=== PATIENT | female | born 1955 | race Caucasian/White ===

== ENCOUNTER 2016-11-05 20:14 | Outpatient (CLI) | payer MEDICARE, OTHER ==
[~2016-11-05 20:14] MED LIST: CALC625T14 PO; EZET10TA5 PO; HYDR-3816 PO; LACT20SO2 PO; LEVO100T7 PO; LISI30TA5 PO; MELO15TA14 PO; METF850T2 PO; OXYC-197 PO; SERT100T8 PO
--- OUTSIDE RECORDS SUMMARY | 2016-11-05 20:19 | XMS REPORT | Continuity of Care Document ---
Author Author [facility] Organization [facility] Address Unknown Phone Unavailable Care Team Providers Care Flight Steward Name Role Phone Lucrecia Sánchez PCP [phone] Source Comments Some departments are not documenting in the electronic medical record. If you do not see the information that you expected, contact Release of Information in the Health Information Management department at [phone] for further assistance in locating additional records.[facility] Active Allergies and Adverse Reactions Allergen Noted Date Severity Reactions Comments Adhesive 11/11/2014 Medium RASH Dilaudid 05/21/2015 High HALLUCINATIONS E-Mycin 11/11/2014 Medium RASH, NAUSEA AND VOMITING Flu Vaccine 11/11/2014 Low SEE COMMENTS Hospitalized with flu at age 17. Lipitor 11/11/2014 Low STOMACH UPSET Morphine 05/21/2015 High HALLUCINATIONS Pcn 11/11/2014 Medium RASH Tolerates Keflex Sulfa (Sulfonamide 11/11/2014 Medium HEADACHE, HIVES, RASH Antibiotics) Tetanus And Diphtheria 11/11/2014 Medium HEADACHE, EDEMA Toxoids, Adsorbed, Adult Zocor 11/11/2014 Low STOMACH UPSET Current Medications Prescription Sig. Disp. Refills Start End Date Status Date metFORMIN (GLUCOPHAGE) Take 850 mg by mouth Active 850 mg tablet twice daily with meals. levothyroxine (SYNTHROID) Take 100 mcg by mouth Active 100 mcg tablet daily. lisinopril (PRINIVIL, Take 40 mg by mouth Active ZESTRIL) 40 mg tablet daily. sertraline (ZOLOFT) 100 Take 200 mg by mouth Active mg tablet daily. cyanocobalamin (VITAMIN Inject 1,000 mcg to Active B-12, RUBRAMIN) 1,000 area(s) as directed every mcg/mL injection 30 days. ferrous sulfate 325 mg Take 325 mg by mouth Active (65 mg iron) tablet daily. FIBER (DEXTRIN) PO Take by mouth daily. Active electrolyte GUT PEG Mix as directed on 4000 mL 0 09/22/20 Active (NULYTELY, COLYTE, package. Drink 240ml 16 GAVILYTE-N) 420 gram oral (8oz) every 10 minutes solution until gone. Refrigerate once mixed. Active Problems Problem Noted Date Open wound anterior abdominal wall 06/18/2015 Status post partial colectomy 05/09/2015 Small bowel obstruction (HCC) 04/19/2015 Pyuria 03/08/2015 Iron deficiency anemia 03/07/2015 Vitamin B12 deficiency 03/07/2015 Essential hypertension 03/07/2015 Depression 03/07/2015 Colonic mass 03/07/2015 Chronic diarrhea 03/07/2015 Type 2 diabetes mellitus without complication (HCC) 03/07/2015 Melena 03/06/2015 DM (diabetes mellitus) (HCC) 11/11/2014 Hypothyroid 11/11/2014 S/P dusty 11/11/2014 Most Recent Encounters Date Type Specialty Providers Description 11/05/2016 Result Letter Gastroenterology Humberto Christian, Crohn' s disease of both [facility] [place] and large intestine with intestinal obstruction (HCC) (Primary Dx) 11/03/2016 [facility] Humberto Chirstian, Colonic ulcer Encounter [facility] 11/03/2016 Endo Rslt Enc Gastroenterology Tunde Diaz MD 11/03/2016 Anesthesia Bhavesh Bustos MD Event 11/03/2016 Surgery Humberto Christian, COLONOSCOPY BIOPSY [facility] 10/27/2016 Hospital Endoscopy, Physician Bloating Encounter 10/27/2016 Surgery Endoscopy, Physician Canceled HYDROGEN BREATH TEST 09/29/2016 Telephone Gastroenterology Humberto Christian, Constipation; Rectal [facility] Injury - Blood in stool 09/27/2016 Telephone Gastroenterology Humberto Christian, Other - HBT [facility] 09/22/2016 Prep for Case Gastroenterology Humberto Christian, DONNY 09/22/2016 Telephone Gastroenterology Humberto Christian, Results - Capsule Endo [facility] 09/16/2016 Hospital Humberto Christian, Abdominal pain Encounter [facility] 09/16/2016 Surgery Humberto Christina, CAPSULE ENDOSCOPY [facility] 09/06/2016 Prep for Case Gastroenterology Humberto Christian, DONNY 09/06/2016 Prep for Case Gastroenterology Humberto Christian, DONNY 08/30/2016 Office Visit Gastroenterology Humberto Christian, Right upper quadrant [facility] abdominal pain (Primary Dx) 08/27/2016 Telephone Gastroenterology Humberto Christian, Abdominal pain - MBEYAD tenderness under R breat, thin stools and gas Social History Tobacco Use Types Packs/Day Years Used Date Never Smoker Smokeless Tobacco: Never Used Alcohol Use Drinks/Week oz/Week Comments No Last Filed Vital Signs Vital Sign Reading Time Taken Blood Pressure 117/51 11/03/2016 1:15 PM VAULT INSTALLER Pulse 60 11/03/2016 1:20 PM VAULT INSTALLER Temperature 36.8 C (98.2 F) 11/03/2016 11:38 AM VAULT INSTALLER Respiratory Rate 16 01/19/2016 9:50 AM CDT Height 1.575 m (5' 2") 09/16/2016 7:24 AM VAULT INSTALLER Weight 141.069 kg (311 lb) 09/16/2016 7:24 AM VAULT INSTALLER Body Mass Index 56.87 09/16/2016 7:24 AM VAULT INSTALLER Oxygen Saturation 94% 11/03/2016 1:20 PM VAULT INSTALLER Plan of Care Date Type Specialty Providers Description 12/20/2016 Appointment Gastroenterology Humberto Christian MBBS [address] [facility] [address] [place] [address] [phone] (Fax) Health Maintenance Due Date Last Done Comments Hepatitis C Screening 1955 Physical (Comprehensive) 1960 Exam Pertussis Vaccine 1964 Tetanus Vaccine 1970 Cervical Cancer Screening 1974 Breast Cancer Screening 1993 Shingles Vaccine 2013 Influenza Vaccine 06/10/2016 Colorectal Cancer 11/03/2026 11/03/2016, 11/03/2016, 11/03/2016 Additional history exists Screening Procedures from Last 3 Months Procedure Name Priority Date/Time Associated Diagnosis Comments TELEMETRY STRIPS-SCAN 11/04/2016 Results for this 12:06 PM VAULT INSTALLER procedure are in the results section. COLONOSCOPY BIOPSY 11/03/2016 Colonic ulcer 12:00 PM VAULT INSTALLER Special Needs 2nd Call - Colonoscop y - Cld pt & scheduled appt 09/24/16 @ 1:51 pm ()Pt lvms, returned my call 09/23/16 @ 3:25 pm ()1st Call - Colonoscop y - Lvms 09/23/16 @ 2:48 pm () COLONOSCOPY 11/03/2016 Colonic ulcer 12:00 PM VAULT INSTALLER Special Needs 2nd Call - Colonoscop y - Cld pt & scheduled appt 09/24/16 @ 1:51 pm ()Pt lvms, returned my call 09/23/16 @ 3:25 pm ()1st Call - Colonoscop y - Lvms 09/23/16 @ 2:48 pm () PROCEDURE RECORD-SCAN 10/07/2016 Results for this 12:52 PM VAULT INSTALLER procedure are in the results section. CAPSULE ENDOSCOPY 09/16/2016 Abdominal pain 7:00 AM VAULT INSTALLER Special Needs 1st Call - Capsule Endoscopy / Hydrogen Breath Test - Cld pt & sched appts (On different days) 09/07/16 @ 1049 () Results from Last 3 Months TELEMETRY STRIPS-SCAN (11/04/2016 12:06 PM) Narrative Ordered by an unspecified provider. SURGICAL PATHOLOGY (11/03/2016 1:43 PM) Component Value Range PATHOLOGY REPORT [facility] [email or web address] Mary Huff MD, PhD, Director of Anatomic Pathology Department of Pathology and Laboratory Medicine [address] [place] [id number] Surgical Pathology Office: [phone] SURGICAL PATHOLOGY REPORT NAME: MECHE CUMMINS ANN SURG PATH #: [id number] MR #: [id number] SPECIMEN CLASS: SR BILLING #: [id number] ALT ID #: LOCATION: [facility] DATE OF PROCEDURE: 11/03/2016 AGE: 60 SEX: F DATE RECEIVED: 11/03/2016 : 1955 TIME RECEIVED: 13:43 PHYSICIAN: HUMBERTO CHRISTIAN MD DATE OF REPORT: 11/04/2016 COPY TO: DATE OF PRINTIN11/04/2016 ################################################## ###################### Final Diagnosis: A. Small intestinal mucosa, "terminal ileum", biopsy: Focal ulceration with fibrinopurulent exudate and acute and chronic inflammation. Attestation: By this signature, I attest that I have personally formulated the final interpretation expressed in this report and that the above diagnosis is based upon my examination of the slides and/or other material indicated in this report. +++Electronically Signed Out By+++ muriel/11/03/2016 Interpreted by: New Mayen MD, Attending Physician Pamela Loera M.D. Resident 11/04/2016 ################################################## ###################### Material Received: A: terminal ileum History: 60-year-old female with history of colonic ulcer. Gross Description: A. Received in formalin labeled "TI BX" is a 0.7 x 0.7 x 0.3 cm aggregate of villa-brown soft tissue fragments. The specimen is entirely submitted in cassette A1. (tn) villa/11/03/2016 Pamela Loera M.D. Resident COLONOSCOPY (11/03/2016 11:51 AM) Component Value Range Provation Report Patient Name: Placido Echevarria Procedure Date: 11/03/2016 11:51 AM CSN: [id number] Date of : 1955 Gender: Female Attending Physician: Humberto Christian MD Procedure: Colonoscopy Indications: Ch ronic diarrhea. 60 y.o. female with history of diarrhea and inflammatory TI mass removed via surgery presenting for colonoscopy. Providers: Humberto Christian MD (Doctor), Bj Cobb RN (Nurse), Milo Mercado, Network Development Coordinator (Network Development Coordinator) Referring Physician: Tunde Diaz MD Medications: Mo nitored Anesthesia Care Complications: No immediate complications. Procedure: Pre-Anesthesia Assessment: - Prior to the procedure, a History and Physical was performed, and patient medications and allergies were reviewed. The patient's tolerance of previous anesthesia was also reviewed. The risks and benefits of the procedure and the sedation options and risks were discussed with the patient. All questions were answered, and informed consent was obtained. Prior Anticoagulants: The patient has taken no previous anticoagulant or antiplatelet agents. ASA Grade Assessment: III - A patient with severe systemic disease. After reviewing the risks and benefits, the patient was deemed in satisfactory condition to undergo the procedure. After I obtained informed consent, the scope was passed under direct vision. Throughout the procedure, the patient's blood pressure, pulse, and oxygen saturations were monitored continuously. The Colonoscope [id number] was introduced through the anus and advanced to 10 cm into the ileum. The colonoscopy was performed without difficulty. The patient tolerated the procedure well. The terminal ileum was photographed. The quality of the bowel preparation was poor. Findings: The perianal and digital rectal examinations were normal. The terminal ileum contained 2 five mm ulcers. No bleeding was present. Biopsies were taken with a cold forceps for histology. Estimated blood loss was minimal. The colonic mucosa could not be inspected due to the poor quality of the preparation Impression: - Preparation of the colon was poor. - 2 ulcers in the terminal ileum. Biopsied. - The colonic mucosa could not be inspected due to the poor quality of the preparation Estimated Blood Loss: Estimated blood loss was minimal. Recommendation: - Patient has a contact number available for emergencies. The signs and symptoms of potential delayed complications were discussed with the patient. Return to normal activities tomorrow. Written discharge instructions were provided to the patient. - Resume previous diet. - Continue present medications. - Repeat colonoscopy for surveillance based on pathology results. Scope In: 12:16:50 PM Scope Out: 12:41:32 PM Scope Withdrawal Time 0 hours 14 minutes 58 seconds Total Procedure Duration Time 0 hours 24 minutes 42 seconds Procedure Code(s): --- Professional --- 51356, Colonoscopy, flexible; with biopsy, single or multiple Diagnosis Code(s): --- Professional --- K63.3, Ulcer of intestine K52.9, Noninfective gastroenteritis and colitis, unspecified CPT copyright 2015 [employer]. All rights reserved. The codes documented in this report are preliminary and upon drafter topographical review may be revised to meet current compliance requirements. Attending Participation: I was present and participated during the entire procedure, including non-kebede portions. MD Humberto Headley MD 11/03/2016 12:48:56 PM The attending physician has electronically signed and finalized this document. Number of Addenda: 0 Note Initiated On: 11/03/2016 11:51 AM POC GLUCOSE (11/03/2016 11:25 AM) Component Value Range Glucose, POC 113 (H) 70-100 MG/DL PROCEDURE RECORD-SCAN (10/07/2016 12:52 PM) Narrative Ordered by an unspecified provider.
== END 2016-11-06 07:16 | disposition home or self-care (01) ==
LOC: SLEEP 20:14
PROVIDERS: ATTEND Nurse Practitioner
DX: G47.30 Sleep apnea, unspecified (principal)
CPT/HCPCS: 95810

== ENCOUNTER → 2016-12-01 | Outpatient (CLI) | payer MEDICARE, OTHER ==
--- OUTSIDE RECORDS SUMMARY | 2016-12-01 16:58 | XMS REPORT | Continuity of Care Document ---
Author Author [facility] Address Unknown Phone Unavailable Care Team Providers Care Senior Loss Control Specialist Name Role Phone Lucrecia Sánchez PCP [phone] Source Comments Some departments are not documenting in the electronic medical record. If you do not see the information that you expected, contact Release of Information in the Health Information Management department at [phone] for further assistance in locating additional records.[facility] Active Allergies and Adverse Reactions Allergen [...] Humberto Christian, Crohn' s disease of both [facility] small and large intestine with intestinal obstruction (HCC) (Primary Dx) 11/03/2016 [facility] Humberto Christian, Colonic ulcer Encounter [facility] 11/03/2016 Endo Rslt Enc Gastroenterology Tunde Diaz MD 11/03/2016 Anesthesia Bhavesh Bustos MD Event 11/03/2016 Surgery Humberto Christian, COLONOSCOPY BIOPSY [facility] 10/27/2016 Hospital Endoscopy, Physician Bloating Encounter 10/27/2016 Surgery Endoscopy, Physician Canceled HYDROGEN BREATH TEST 09/29/2016 Telephone Gastroenterology Humberto Christian, Constipation; Rectal [facility] Injury - Blood in stool 09/27/2016 Telephone Gastroenterology Humberto Christian, Other - HBT [facility] 09/22/2016 Prep for Case Gastroenterology Humberto Christian, DONNY 09/22/2016 Telephone Gastroenterology Humberto Christian, Results - Capsule Endo [facility] 09/16/2016 Hospital Humberto Christian, Abdominal pain Encounter [facility] 09/16/2016 Surgery Humberto Christian, CAPSULE ENDOSCOPY [facility] 09/06/2016 Prep for Case Gastroenterology Humberto Christian, DONNY 09/06/2016 Prep for Case Gastroenterology Humberto Christian MBBS Social History Tobacco Use Types Packs/Day Years Used Date Never Smoker Smokeless Tobacco: Never Used Alcohol Use Drinks/Week oz/Week Comments No Last Filed Vital Signs Vital Sign Reading Time Taken Blood Pressure 117/51 11/03/2016 1:15 PM TENTER FRAME OPERATOR Pulse 60 11/03/2016 1:20 PM TENTER FRAME OPERATOR Temperature 36.8 C (98.2 F) 11/03/2016 11:38 AM TENTER FRAME OPERATOR Respiratory Rate 16 01/19/2016 9:50 AM CDT Height 1.575 m (5' 2") 09/16/2016 7:24 AM TENTER FRAME OPERATOR Weight 141.069 kg (311 lb) 09/16/2016 7:24 AM TENTER FRAME OPERATOR Body Mass Index 56.87 09/16/2016 7:24 AM TENTER FRAME OPERATOR Oxygen Saturation 94% 11/03/2016 1:20 PM TENTER FRAME OPERATOR Plan of Care Date Type Specialty Providers Description 12/13/2016 Appointment Gastroenterology Humberto Christian MBBS [address] [facility] [address] [place] [address] [phone] (Fax) Health Maintenance Due Date Last Done [...] STRIPS-SCAN 11/04/2016 Results for this 12:06 PM TENTER FRAME OPERATOR procedure are in the results section. COLONOSCOPY BIOPSY 11/03/2016 Colonic ulcer 12:00 PM TENTER FRAME OPERATOR Special Needs 2nd Call - Colonoscop y - Cld pt & scheduled appt 09/24/16 @ 1:51 pm ()Pt lvms, returned my call 09/23/16 @ 3:25 pm ()1st Call - Colonoscop y - Lvms 09/23/16 @ 2:48 pm () COLONOSCOPY 11/03/2016 Colonic ulcer 12:00 PM TENTER FRAME OPERATOR Special Needs 2nd Call - Colonoscop y - Cld pt & scheduled appt 09/24/16 @ 1:51 pm ()Pt lvms, returned my call 09/23/16 @ 3:25 pm ()1st Call - Colonoscop y - Lvms 09/23/16 @ 2:48 pm () PROCEDURE RECORD-SCAN 10/07/2016 Results for this 12:52 PM TENTER FRAME OPERATOR procedure are in the results section. CAPSULE ENDOSCOPY 09/16/2016 Abdominal pain 7:00 AM TENTER FRAME OPERATOR Special Needs 1st Call - Capsule Endoscopy / Hydrogen Breath Test - Cld pt & sched appts (On different days) 09/07/16 @ 1049 () Results from Last 3 Months TELEMETRY STRIPS-SCAN (11/04/2016 12:06 PM) Narrative Ordered by an unspecified provider. SURGICAL PATHOLOGY (11/03/2016 1:43 PM) Component Value Range PATHOLOGY REPORT [facility] [email or web address] Mary Huff MD, PhD, Director of Anatomic Pathology Department of Pathology and Laboratory Medicine [address] [place] [phone] Surgical Pathology Office: [phone] SURGICAL PATHOLOGY REPORT NAME: MECHE CUMMINS ANN SURG PATH #: [id number] MR #: [id number] SPECIMEN CLASS: SR BILLING #: [id number] ALT ID #: LOCATION: [facility]END DATE OF PROCEDURE: 11/03/2016 AGE: 60 SEX: [...] Echevarria Procedure Date: 11/03/2016 11:51 AM CSN: [id number] Date of : 1955 Gender: Female Attending Physician: Humberto Christian MD Procedure: Colonoscopy Indications: Ch ronic diarrhea. 60 y.o. female with history of diarrhea and inflammatory TI mass removed via surgery presenting for colonoscopy. Providers: Humberto Christian MD (Doctor), Bj Cobb RN (Nurse), Milo Mercado Supervisor Dry Cell Assembly (Supervisor Dry Cell Assembly) Referring Physician: Tunde Diaz MD Medications: Mo [...] 42 seconds Procedure Code(s): --- Professional --- 04221, Colonoscopy, flexible; with biopsy, single or multiple Diagnosis Code(s): --- Professional --- K63.3, Ulcer of intestine K52.9, Noninfective gastroenteritis and colitis, unspecified CPT copyright 2015 [employer]. All rights reserved. The codes documented in this report are preliminary and upon pump press operator review may be revised to meet current [...]
[2016-12-01 17:24] LABS: MEAN PLATELET VOLUME 9.2 FL (7.4-10.4); RED BLOOD COUNT 4.23 10^6/uL (4.35-5.85); RED CELL DISTRIBUTION WIDTH 12.8 % (10.0-14.5); WHITE BLOOD COUNT 6.7 10^3/uL (4.3-11.0)
[2016-12-01 17:49] LABS: ALANINE AMINOTRANSFERASE 42 U/L (0-55); ALBUMIN 3.9 G/DL (3.2-4.5); ANION GAP 9 MMOL/L (5-14); ASPARTATE AMINO TRANSFERASE 57 U/L (5-34); BILIRUBIN,TOTAL 0.6 MG/DL (0.1-1.0); BLOOD UREA NITROGEN 15 MG/DL (7-18); BUN/CREATININE RATIO 20; CALCIUM 9.5 MG/DL (8.5-10.1); CARBON DIOXIDE 21 MMOL/L (21-32); CHLORIDE 109 MMOL/L (98-107); CREATININE SERUM 0.75 MG/DL (0.60-1.30); GFR ESTIMATED > 60; GLUCOSE 181 MG/DL (70-105); SODIUM 139 MMOL/L (135-145); TOTAL PROTEIN 6.6 G/DL (6.4-8.2)
[2016-12-02 11:45] LABS: %SAT TOTAL IRON BINDING CAPIC 24 % (15-50); TIBC 325 ug/dL (280-380)
[2016-12-03 08:23] LABS: HEPATITIS B CORE TOTAL INDEX <0.07 Index (<=0.50); HEPATITIS B SURFACE AB INDEX <3.10 mIU/mL (>=10.00); HEPATITIS B SURFACE AB INTERP Non-Immune (Immune)
[2016-12-03 08:24] LABS: HEPATITIS B CORE TOTAL INTERP Non-Reactive; UIBC 248 ug/dL (55-450)
== END ==
LOC: LAB 16:53
PROVIDERS: ATTEND Internal Medicine Gastroenterology
DX: E11.9 Type 2 diabetes mellitus without complications (principal); K50.812 Crohn's disease of both small and large intestine with intestinal obstruction; E53.8 Deficiency of other specified B group vitamins; E78.5 Hyperlipidemia, unspecified; I10 Essential (primary) hypertension
CPT/HCPCS: 36415; 80053; 82607; 82728; 83540; 85027; 86704; 86706; 87340

== ENCOUNTER 2016-12-12 14:06 | Emergency (ER) | payer MEDICARE ==
[~2016-12-12] VITALS: Ht 157.5 cm; Wt 142.0 kg
--- OUTSIDE RECORDS SUMMARY | 2016-12-12 14:12 | XMS REPORT | Continuity of Care Document ---
Author Author [facility] Organization [facility] Address Unknown Phone Unavailable Care Team Providers Care Repulping Supervisor Name Role Phone Lucrecia Sánchez PCP [phone] Source Comments Some departments are not documenting in the electronic medical record. If you do not see the information that you expected, contact Release of Information in the Health Information Management department at [phone] for further assistance in locating additional records.[facility] Active Allergies and Adverse Reactions Allergen Noted [...] Recent Encounters Date Type Specialty Providers Description 12/08/2016 Orders Only Gastroenterology Humberto Christian MBBS 12/07/2016 Orders Only Gastroenterology Humberto Christian MBBS 12/07/2016 Orders Only Gastroenterology Humberto Christian MBBS 11/05/2016 Result Letter Gastroenterology Humberto Christian, Crohn' s disease of both [facility] small and large intestine with intestinal obstruction (HCC) (Primary Dx) 11/03/2016 Hospital Humberto Christian, Colonic ulcer Encounter [facility] 11/03/2016 Endo Rslt Enc Gastroenterology Tunde Diaz MD 11/03/2016 Anesthesia Bhavesh Bustos MD Event 11/03/2016 Surgery Humberto Christian, COLONOSCOPY BIOPSY EYAD 10/27/2016 Surgery Endoscopy, Physician Canceled HYDROGEN BREATH TEST 09/29/2016 Telephone Gastroenterology Humberto Christian, Constipation; Rectal DONNY Injury - Blood in stool 09/27/2016 Telephone Gastroenterology Humberto Christian, Other - HBT DONNY 09/22/2016 Prep for Case Gastroenterology Humberto Christian MBBS 09/22/2016 Telephone Gastroenterology Humberto Christian, Results - Capsule Endo DONNY 09/16/2016 Surgery Humberto Christian, CAPSULE ENDOSCOPY DONNY Social History Tobacco Use Types Packs/Day Years Used Date Never Smoker Smokeless Tobacco: Never Used Alcohol Use Drinks/Week oz/Week Comments No Last Filed Vital Signs Vital Sign Reading Time Taken Blood Pressure 117/51 11/03/2016 1:15 PM CUSTOMER EQUIPMENT ENGINEER Pulse 60 11/03/2016 1:20 PM CUSTOMER EQUIPMENT ENGINEER Temperature 36.8 C (98.2 F) 11/03/2016 11:38 AM CUSTOMER EQUIPMENT ENGINEER Respiratory Rate 16 01/19/2016 9:50 AM CDT Height 1.575 m (5' 2") 09/16/2016 7:24 AM CUSTOMER EQUIPMENT ENGINEER Weight 141.069 kg (311 lb) 09/16/2016 7:24 AM CUSTOMER EQUIPMENT ENGINEER Body Mass Index 56.87 09/16/2016 7:24 AM CUSTOMER EQUIPMENT ENGINEER Oxygen Saturation 94% 11/03/2016 1:20 PM CUSTOMER EQUIPMENT ENGINEER Plan of Care Date Type Specialty Providers Description 12/13/2016 Appointment Gastroenterology Humberto Christian MBBS [address] [facility] [address] [place] [address] [phone] (Fax) Health Maintenance Due Date Last Done Comments Hepatitis C Screening 1955 Physical (Comprehensive) 1960 Exam Pertussis Vaccine 1964 Tetanus Vaccine 1970 Cervical Cancer Screening 1974 Breast Cancer Screening 1993 Shingles Vaccine 2013 Influenza Vaccine 06/10/2017 Colorectal Cancer 11/03/2026 11/03/2016, 11/03/2016, 11/03/2016 Additional history exists Screening Procedures from Last 3 Months Procedure Name Priority Date/Time Associated Diagnosis Comments TELEMETRY STRIPS-SCAN 11/04/2016 Results for this 12:06 PM CUSTOMER EQUIPMENT ENGINEER procedure are in the results section. COLONOSCOPY BIOPSY 11/03/2016 Colonic ulcer 12:00 PM CUSTOMER EQUIPMENT ENGINEER Special Needs 2nd Call - Colonoscop y - Cld pt & scheduled appt 09/24/16 @ 1:51 pm ()Pt lvms, returned my call 09/23/16 @ 3:25 pm ()1st Call - Colonoscop y - Lvms 09/23/16 @ 2:48 pm () COLONOSCOPY 11/03/2016 Colonic ulcer 12:00 PM CUSTOMER EQUIPMENT ENGINEER Special Needs 2nd Call - Colonoscop y - Cld pt & scheduled appt 09/24/16 @ 1:51 pm ()Pt lvms, returned my call 09/23/16 @ 3:25 pm ()1st Call - Colonoscop y - Lvms 09/23/16 @ 2:48 pm () PROCEDURE RECORD-SCAN 10/07/2016 Results for this 12:52 PM CUSTOMER EQUIPMENT ENGINEER procedure are in the results section. CAPSULE ENDOSCOPY 09/16/2016 Abdominal pain 7:00 AM CUSTOMER EQUIPMENT ENGINEER Special Needs 1st Call - Capsule Endoscopy / Hydrogen Breath Test - Cld pt & sched appts (On different days) 09/07/16 @ 1049 () Results from Last 3 Months MISCELLANEOUS LAB TEST (12/04/2016)Only the most recent of 2 results within the time period is included. Specimen Blood HEPATITIS B SURFACE AG (12/01/2016) Component Value Range HBsAg Non-Reactive Specimen Blood HEPATITIS B CORE AB TOT (IGG+IGM) (12/01/2016) Specimen Blood VITAMIN B12 (12/01/2016) Component Value Range Vitamin B12 499 Specimen Blood IRON + BINDING CAPACITY + %SAT (12/01/2016) Component Value Range Iron 77 % Saturation 24 Specimen Blood FERRITIN (12/01/2016) Component Value Range Ferritin 86.0 Specimen Blood CBC (12/01/2016) Component Value Range White Blood Cells 6.7 RBC 4.23 Hemoglobin 13.0 Hematocrit 39 MCV 92 MCH 31 MCHC 33 Platelet Count 182 MPV 9.2 RDW 12.8 Specimen Blood COMPREHENSIVE METABOLIC PANEL (12/01/2016) Component Value Range Sodium 139 Potassium 4.0 Chloride 109 CO2 21 Blood Urea Nitrogen 15 Creatinine 0.75 Glucose 181 Calcium 9.5 Total Protein 6.6 Total Bilirubin 0.6 Albumin 3.9 Alk Phosphatase 71 AST (SGOT) 57 ALT (SGPT) 42 Anion Gap 9 Specimen Blood TELEMETRY STRIPS-SCAN (11/04/2016 12:06 PM) Narrative Ordered by an unspecified provider. SURGICAL PATHOLOGY (11/03/2016 1:43 PM) Component Value Range PATHOLOGY REPORT [facility] [email or web address] Mary Huff MD, PhD, Director of Anatomic Pathology Department of Pathology and Laboratory Medicine [address] [place] [id number] Surgical Pathology Office: [phone] SURGICAL PATHOLOGY REPORT NAME: MARIIA CUMMINSH ANN SURG PATH #: [id number] MR #: [id number] SPECIMEN CLASS: SR BILLING #: [id number] ALT ID #: LOCATION: [facility] DATE OF PROCEDURE: 11/03/2016 AGE: 60 SEX: [...] in this report. +++Electronically Signed Out By+++ leb/11/03/2016 Interpreted by: New Mayen MD, Attending Physician Pamela Loera M.D. Resident 11/04/2016 ################################################## ###################### Material Received: A: terminal ileum History: 60-year-old female with history of colonic ulcer. Gross Description: A. Received in formalin labeled "TI BX" is a 0.7 x 0.7 x 0.3 cm aggregate of villa-brown soft tissue fragments. The specimen is entirely submitted in cassette A1. (tn) 11/03/2016 Pamela Loera M.D. Resident COLONOSCOPY (11/03/2016 11:51 AM) Component Value Range Provation Report Patient Name: Placido Echevarria Procedure Date: 11/03/2016 11:51 AM CSN: [id number] Date of : 1955 Gender: Female Attending Physician: Humberto Christian MD Procedure: Colonoscopy Indications: Ch ronic diarrhea. 60 y.o. female with history of diarrhea and inflammatory TI mass removed via surgery presenting for colonoscopy. Providers: Humberto Christian MD (Doctor), Bj Cobb RN (Nurse), Milo [facility] R[facility] (Health Services Rn) Referring Physician: Tunde Diaz MD Medications: Mo [...] 42 seconds Procedure Code(s): --- Professional --- 14388, Colonoscopy, flexible; with biopsy, single or multiple Diagnosis Code(s): --- Professional --- K63.3, Ulcer of intestine K52.9, Noninfective gastroenteritis and colitis, unspecified CPT copyright 2015 [employer]. All rights reserved. The codes documented in this report are preliminary and upon hardware supplies sales representative review may be revised to meet current [...]
--- NOTE | 2016-12-12 15:30 | ED Lower Extremity ---
General Chief Complaint: Trauma-Non Activation Stated Complaint: FALL/R KNEE/ELBOW/HAND INJ Nursing Triage Note: FELL TODAY AROUND [address] [facility] [place]. COMPLAINS OF PAIN RIGHT KNEE, ET RIGHT HAND. DENIES LOC BUT HIT HER HEAD ON THE RED BOX OUTSIDE [facility]. Nursing Sepsis Screen: No Definite Risk Source: patient, family History of Present Illness Time seen by provider: 15:25 Initial Comments This 61-year-old white female presents after she fell at [facility] in [place] striking her left knee and left elbow and left hand. The patient denied any significant head trauma or loss of consciousness. The patient denies subsequent neck pain of significance. She denied trauma to the chest abdomen or pelvis. The patient denied injury to the left upper or lower extremity. Patient's past medical history includes a previous right knee replacement. The patient is complaining of sharp pain greatest in the right knee, then her right elbow, and finally her right hand. Location Injury Occurred: [facility] [place] Allergies and Home Medications Allergies Coded Allergies: Influenza Virus Vaccines (Verified Allergy, Unknown, NAUSEA, 12/02/15) Penicillins (Verified Allergy, Unknown, HIVES, 12/02/15) Sulfa (Sulfonamide Antibiotics) (Verified Allergy, Unknown, HIVES, 12/02/15 ) adhesive tape (Verified Allergy, Unknown, HIVES, 12/02/15) atorvastatin (Verified Allergy, Unknown, NAUSEA, 12/02/15) hydromorphone (Verified Allergy, Unknown, hallucinations, 12/02/15) morphine (Verified Allergy, Unknown, hallcination, 12/02/15) simvastatin (Verified Allergy, Unknown, NAUSEA, 12/02/15) tetanus & diphtheria toxoids (Verified Allergy, Unknown, HIVES, 12/02/15) Uncoded Allergies: myocins (Allergy, Unknown, NAUSEA, 12/02/15) Home Medications Calcium Polycarbophil 625 Mg Tablet 625 MG PO DAILY (Reported) Ezetimibe 10 Mg Tablet 10 MG PO DAILY (Reported) Hydrocodone/Acetaminophen 1 Each Tablet #20 1 EACH PO Q4H Prescribed by: REBECCA LAWSON on 12/10/15 1050 Lactulose 20 Gm/30 Ml Solution #1 20 GM PO Q4H 30 mL by mouth every 4 hours until diarrhea Prescribed by: JENNIFER DAMON on 09/29/16 1543 Levothyroxine Sodium 100 Mcg Tablet 100 MCG PO DAILY (Reported) Lisinopril 30 Mg Tablet 30 MG PO DAILY (Reported) Meloxicam 15 Mg Tablet 15 MG PO DAILY (Reported) Metformin HCl 850 Mg Tablet 850 MG PO BID (Reported) Oxycodone HCl/Acetaminophen 1 Each Tablet #30 1 EACH PO Q4H PRN PRN PAIN Prescribed by: MAYTE DICKERSON on 01/25/16 1145 Sertraline HCl 100 Mg Tablet 100 MG PO DAILY (Reported) Constitutional: No chills, No fever EENTM: No ear pain, No mouth pain Respiratory: No cough Cardiovascular: No chest pain Gastrointestinal: No abdominal pain Genitourinary: no symptoms reported Musculoskeletal: see HPINo back pain, No gout Skin: no symptoms reported Psychiatric/Neurological: No Symptoms Reported Past Jatsyon-Atjpnb-Jxkoff Hx Patient Social History Alcohol Use: Denies Use Recreational Drug Use: No Smoking Status: Never a Smoker Recent Foreign Travel: No Contact w/Someone Who Travel: No Recent Infectious Disease Expo: No Recent Hopitalizations: No Surgeries HX Surgeries: Yes (right tkr x2, left heel spur removed, mass removed from colon and resection) Respiratory Hx Respiratory Disorders: Yes (uses cpap) Respiratory Disorders: Sleep Apnea Cardiovascular Hx Cardiac Disorders: Yes Cardiac Disorders: High Cholesterol, Hypertension Neurological Hx Neurological Disorders: No Genitourinary Hx Genitourinary Disorders: No Gastrointestinal Hx Gastrointestinal Disorders: Yes (benign colon mass removed, ) Musculoskeletal Hx Musculoskeletal Disorders: Yes Musculoskeletal Disorders: Osteoporosis, Arthritis Endocrine Hx Endocrine Disorders: Yes Endocrine Disorders: Diabetes, Non-Insulin dep HEENT HX ENT Disorders: Yes (glasses, small cataract, ) Cancer Hx Cancer: No Psychosocial Hx Psychiatric Problems: Yes Behavioral Health Disorders: Anxiety, Depression Integumentary HX Skin/Integumentary Disorder: No Blood Transfusions Hx Blood Disorders: No Reviewed Nursing Assessment Reviewed/Agree w Nursing PMH: Yes Family Medical History Significant Family History: No Pertinent Family Hx Physical Exam Vital Signs Vital Sign - Last 12Hours 12/12/16 14:16 Temp 99.1 Pulse 60 Resp 18 B/P 134/69 Pulse Ox 94 Capillary Refill : Less Than 3 Seconds General Appearance: WD/WN mild distress HEENT: normal ENT inspection Neck: normal inspection Cardiovascular: normal peripheral pulses regular rate, rhythm Respiratory: chest non-tender lungs clear Gastrointestinal: normal bowel sounds non tender soft Back: no vertebral tenderness Hips: bilateral hip non-tender, bilateral hip no evidence of injury Legs: bilateral leg non-tender, bilateral leg normal range of motion Knees: bilateral knee pain, bilateral knee soft tissue tenderness Ankles: bilateral ankle non-tender, bilateral ankle no evidence of injury Feet: bilateral foot non-tender, bilateral foot no evidence of injury Neurologic/Tendon: normal sensation normal motor functions Neurologic/Psychiatric: no motor/sensory deficits Skin: normal color warm/dry Progress/Results/Core Measures Results/Orders My Orders Orders-TURNER RUIZ MD Hand, Right, 3 Views (12/12/16 15:03) Knee, Right, 3 Views (12/12/16 15:03) Elbow, Right, 3 Views (12/12/16 15:03) Vital Signs/I&O Vital Sign - Last 12Hours 12/12/16 14:16 Temp 99.1 Pulse 60 Resp 18 B/P 134/69 Pulse Ox 94 Blood Pressure Mean: 90 Progress Note : Time: 15:46 Progress Note The grafts the patient's right hand right elbow and right knee failed to demonstrate evidence of fracture, dislocation or appliance miss positioning. Patient was able to weight-bear on the right knee. I discussed the radiographic findings with patient and her . I recommended they follow up with her orthopedic surgeon by calling the office tomorrow morning. He'll use hydrocodone which they have at home for pain. Ice to the injured areas was recommended tonight. They were asked to return to the emergency department for any further problems or questions Departure Impression Impression: Primary Impression: Fall Qualified Code: W19.XXXA - Unspecified fall, initial encounter Disposition: 01 HOME, SELF-CARE Condition: Improved Departure-Patient Inst. Decision time for Depature: 15:48 Referrals: BRENTON DORAN MD (PCP/Family) Primary Care Physician Patient Instructions: General Trauma (DC) Add. Discharge Instructions: Hydrocodone for pain. Ice to contused areas tonight. Careful weightbearing on the right knee. Close follow-up with the orthopedic surgeon. Return if any problems. All discharge instructions reviewed with patient and/or family. Voiced understanding. TURNER RUIZ MD Dec 12, 2016 15:29
--- NOTE | 2016-12-12 15:32 | Diagnostic Imaging Report ---
EXAMINATION: Right knee, 3 views. COMPARISON: None. INDICATION: 61-year-old female status post fall. Right knee pain. FINDINGS: There is a longstem right total knee prosthesis. The hardware appears intact. There is no periprosthetic lucency. There is no identified acute fracture. There is no cortical or aggressive bone destruction. There is no identified large knee joint effusion. IMPRESSION: 1. Longstem hinged right knee prosthesis without identified complication. 2. No identified acute bony abnormality of the right knee. Dictated by: Dictated on workstation # [id number]
--- NOTE | 2016-12-12 15:35 | Diagnostic Imaging Report ---
EXAMINATION: Right hand, 3 views. COMPARISON: None. HISTORY: 61-year-old female status post fall. Right hand pain. FINDINGS: There is no identified acute fracture or dislocation. There is no radiopaque foreign body. There is no prominent focal soft tissue swelling. Joint spaces are well preserved. IMPRESSION: Unremarkable radiographs of the right hand. Dictated by: Dictated on workstation # [id number]
--- NOTE | 2016-12-12 15:37 | Diagnostic Imaging Report ---
EXAMINATION: Right elbow, 3 views. COMPARISON: None. INDICATION: 61-year-old female, fall. Right elbow pain. FINDINGS: There is no identified elbow joint effusion. There is no identified acute fracture or dislocation. There is no identified radiopaque foreign body. IMPRESSION: No identified acute bony abnormality of the right elbow. Dictated by: Dictated on workstation # [id number]
[2016-12-12 15:56] VITALS: BP 134/69
== END 2016-12-12 15:55 | disposition home or self-care (01) ==
LOC: EDUNIT# 14:06 → ER 14:07
DX: S89.91XA Unspecified injury of right lower leg, initial encounter (principal); S69.91XA Unspecified injury of right wrist, hand and finger(s), initial encounter; S59.901A Unspecified injury of right elbow, initial encounter; I10 Essential (primary) hypertension; E11.9 Type 2 diabetes mellitus without complications; Z79.84 Long term (current) use of oral hypoglycemic drugs; Z79.899 Other long term (current) drug therapy; Z96.651 Presence of right artificial knee joint; W19.XXXA Unspecified fall, initial encounter; Y92.512 Supermarket, store or market as the place of occurrence of the external cause; Y99.8 Other external cause status
CPT/HCPCS: 73080; 73130; 73562; 99282

== ENCOUNTER 2017-04-04 17:18 | Emergency (ER) | payer MEDICARE ==
[~2017-04-04] VITALS: Ht 157.5 cm; Wt 143.3 kg
--- NOTE | 2017-04-04 17:46 | ED Upper Extremity ---
General Chief Complaint: Trauma-Non Activation Stated Complaint: FELL/RT SHOULDER PAIN/LT HAND BRUISING Source: patient Exam Limitations: no limitations History of Present Illness Time seen by provider: 17:44 Initial Comments To ER with reports of her history pain. She tripped over her cord at home. She landed on the right arm. Complains of pain to the right humerus and right forearm. Abrasion of the posterior right elbow. Bruising to left hand. She states that she did hit her head but did not lose consciousness, has no headache and no nausea or vomiting. Onset: just prior to arrival Severity: moderate Pain/Injury Location: right arm, right elbow, right forearm, left hand Method of Injury: fell Modifying Factors: Worse With Movement Allergies and Home Medications Allergies Coded Allergies: Influenza Virus Vaccines (Verified Allergy, Unknown, NAUSEA, 12/02/15) Penicillins (Verified Allergy, Unknown, HIVES, 12/02/15) Sulfa (Sulfonamide Antibiotics) (Verified Allergy, Unknown, HIVES, 12/02/15 ) adhesive tape (Verified Allergy, Unknown, HIVES, 12/02/15) atorvastatin (Verified Allergy, Unknown, NAUSEA, 12/02/15) hydromorphone (Verified Allergy, Unknown, hallucinations, 12/02/15) morphine (Verified Allergy, Unknown, hallcination, 12/02/15) simvastatin (Verified Allergy, Unknown, NAUSEA, 12/02/15) tetanus & diphtheria toxoids (Verified Allergy, Unknown, HIVES, 12/02/15) Uncoded Allergies: myocins (Allergy, Unknown, NAUSEA, 12/02/15) Home Medications Calcium Polycarbophil 625 Mg Tablet, 625 MG PO DAILY, (Reported) Ezetimibe 10 Mg Tablet, 10 MG PO DAILY, (Reported) Hydrocodone/Acetaminophen 1 Each Tablet, 1 EACH PO Q4H, #20 Prescribed by: REBECCA ALWSON on 12/10/15 1050 Lactulose 20 Gm/30 Ml Solution, 20 GM PO Q4H, #1 Ref 0 30 mL by mouth every 4 hours until diarrhea Prescribed by: JENNIFER DAMON on 09/29/16 1543 Levothyroxine Sodium 100 Mcg Tablet, 100 MCG PO DAILY, (Reported) Lisinopril 30 Mg Tablet, 30 MG PO DAILY, (Reported) Meloxicam 15 Mg Tablet, 15 MG PO DAILY, (Reported) Metformin HCl 850 Mg Tablet, 850 MG PO BID, (Reported) Oxycodone HCl/Acetaminophen 1 Each Tablet, 1 EACH PO Q4H PRN for PAIN, #30 Prescribed by: MAYTE DICKERSON on 01/25/16 1145 Sertraline HCl 100 Mg Tablet, 100 MG PO DAILY, (Reported) Constitutional: see HPI EENTM: see HPI Respiratory: no symptoms reported Cardiovascular: no symptoms reported Genitourinary: no symptoms reported Musculoskeletal: see HPI Skin: no symptoms reported Psychiatric/Neurological: No Symptoms Reported Past Vqokzpc-Iyypcv-Wgccow Hx Patient Social History Recent Foreign Travel: No Contact w/Someone Who Travel: No Recent Hopitalizations: No Surgeries HX Surgeries: Yes (right tkr x2, left heel spur removed, mass removed from colon and resection) Respiratory Hx Respiratory Disorders: Yes (uses cpap) Respiratory Disorders: Sleep Apnea Cardiovascular Hx Cardiac Disorders: Yes Cardiac Disorders: High Cholesterol, Hypertension Neurological Hx Neurological Disorders: No Genitourinary Hx Genitourinary Disorders: No Gastrointestinal Hx Gastrointestinal Disorders: Yes (benign colon mass removed, ) Musculoskeletal Hx Musculoskeletal Disorders: Yes Musculoskeletal Disorders: Osteoporosis, Arthritis Endocrine Hx Endocrine Disorders: Yes Endocrine Disorders: Diabetes, Non-Insulin dep HEENT HX ENT Disorders: Yes (glasses, small cataract, ) Cancer Hx Cancer: No Psychosocial Hx Psychiatric Problems: Yes Behavioral Health Disorders: Anxiety, Depression Integumentary HX Skin/Integumentary Disorder: No Blood Transfusions Hx Blood Disorders: No Family Medical History Significant Family History: No Pertinent Family Hx Physical Exam Vital Signs Vital Sign - Last 12Hours 04/04/17 17:42 Temp 98.1 Pulse 81 Resp 18 B/P (MAP) 188/92 Capillary Refill : General Appearance: WD/WN, no apparent distress HEENT: PERRL/EOMI, normal ENT inspection Neck: non-tender Respiratory: normal breath sounds, no respiratory distress, no accessory muscle use Gastrointestinal: normal bowel sounds, non tender, soft Shoulder: normal inspection, non-tender Elbow/Forearm: normal inspection, abrasions, pain Wrist: Yes normal inspection, Yes non-tender Neurologic/Tendon: normal sensation, normal motor functions, normal tendon functions Skin: normal color, warm/dry Comments Bruising over the thenar eminence left hand. No deformity. Abrasion to the posterior right elbow. Pain to the right humerus without deformity or ecchymosis. Progress/Results/Core Measures Results/Orders My Orders Orders - MAYTE DICKERSON APRN Hand, Left, 3 Views (04/04/17 17:44) Humerus, Right, 2 Views (04/04/17 17:44) Forearm, Right, 2 Views (04/04/17 17:44) Vital Signs/I&O Vital Sign - Last 12Hours 04/04/17 17:42 Temp 98.1 Pulse 81 Resp 18 B/P (MAP) 188/92 Departure Impression Impression: Primary Impression: Contusion Disposition: 01 HOME, SELF-CARE Condition: Stable Departure-Patient Inst. Decision time for Depature: 18:29 Referrals: BRENTON DORAN MD (PCP/Family) Primary Care Physician Patient Instructions: Contusion (DC) Add. Discharge Instructions: All discharge instructions reviewed with patient and/or family. Voiced understanding. MAYTE DICKERSON APRN Apr 04, 2017 17:46
--- NOTE | 2017-04-04 18:33 | Diagnostic Imaging Report ---
Indication: Right forearm pain after fall. Comparison: None available. Technique: AP and lateral views of the right forearm. Findings: No acute fracture of the radius or ulna. The wrist and elbow are grossly normal in alignment on forearm radiographs. No radiopaque foreign body. Impression: 1. No acute fracture in the right forearm. Dictated by: Dictated on workstation # [id number]
--- NOTE | 2017-04-04 18:34 | Diagnostic Imaging Report ---
INDICATION: Right upper arm pain after fall. COMPARISON: Right forearm radiographs performed concurrently. TECHNIQUE: AP and lateral views of the right humerus. FINDINGS: No discrete fracture of the right humerus. Elbow and shoulder grossly normal in alignment. No radiopaque foreign body. IMPRESSION: 1. No acute fracture of the right humerus. Dictated by: Dictated on workstation # [id number]
--- NOTE | 2017-04-04 18:35 | Diagnostic Imaging Report ---
HAND, LEFT, 3 VIEWS COMPARISON: None available. INDICATION: Left hand pain after fall. TECHNIQUE: PA, oblique and lateral views of the hand. FINDINGS: No fracture or traumatic malalignment. No radiopaque foreign body. Joint spaces are well-maintained. There are scattered subcortical cysts within the carpal bones, which are likely degenerative in nature. Normal sesamoids are seen adjacent to the thumb and index finger MCP joints as well as the thumb IP joint. IMPRESSION: 1. No acute fracture or malalignment. Dictated by: Dictated on workstation # [id number]
[2017-04-04 19:07] VITALS: BP 176/88
--- OUTSIDE RECORDS SUMMARY | 2017-04-05 09:03 | XMS REPORT ---
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 Active Problem Hypothyroidism 244.9 Active Problem RUQ pain 789.01 Active Problem Vitamin B12 deficiency 266.2 Active Problem Diarrhea 787.91 Active Problem Anxiety state, unspecified 300.00 Active Problem Hyperlipidemia 272.4 Active Problem Diabetes mellitus without mention of complication, type II or unspecified type, not stated as uncontrolled 250.00 Active Problem Major depressive disorder, recurrent episode, moderate 296.32 Active Problem Pain in joint, lower leg 719.46 Active Problem Unspecified urinary incontinence 788.30 Active Medications Medication Code System Code Instructions Start Date End Date Status Dosage Simvastatin [facility] [address]-48 40 MG Orally Once a day Jun 13, 2015 1 tablet in the evening Results No Known Results Summary Purpose e[employer] Submission
--- OUTSIDE RECORDS SUMMARY | 2017-04-05 09:03 | XMS REPORT ---
Author Author BRENTON DORAN Organization eClinicalWorks Address Unknown Phone Unavailable Care Team Providers Care Crtt Name Role Phone BRENTON DORAN CP Unavailable Allergies No Known Allergies Problems Problem Type Condition Code Onset Dates Condition Status Problem Essential hypertension I10 Active Problem Right upper quadrant pain R10.11 Active Problem Hyperlipidemia E78.5 Active Problem Anxiety F41.9 Active Problem Type 2 diabetes mellitus without complication E11.9 Active Problem Chronic diarrhea K52.9 Active Problem Iron deficiency anemia due to chronic blood loss D50.0 Active Problem Vitamin B12 deficiency E53.8 Active Problem Major depressive disorder, recurrent episode, moderate F33.1 Active Problem Acquired hypothyroidism E03.9 Active Assessment Acquired hypothyroidism E03.9 Active Assessment Vitamin B12 deficiency E53.8 Active Assessment Hyperlipidemia E78.5 Active Assessment Type 2 diabetes mellitus without complication E11.9 Active Assessment Iron deficiency anemia due to chronic blood loss D50.0 Active Assessment Essential hypertension I10 Active Medications No Known Medications Procedures Procedure Coding System Code Date LAB NOT BILLED BY [facility] CPT-4 NOBLL Oct 16, 2015 VENIPUNCT, ROUTINE* CPT-4 14847 Oct 16, 2015 GLYCATED HEMOGLOBIN TEST CPT-4 75760 Oct 16, 2015 Results Name Result Date Reference Range Unit Abnormality Flag ROUTINE VENIPUNCTURE Summary Purpose eClinicalWorks Submission
--- OUTSIDE RECORDS SUMMARY | 2017-04-05 09:03 | XMS REPORT ---
Author Author BRENTON DORAN [employer] Address Unknown Phone Unavailable Care Team Providers Care Advertising Operations Coordinator Name Role Phone BRENTON DORAN CP Unavailable Allergies, Adverse Reactions, Alerts Substance Reaction Event Type Penicillin V Potassium Info Not Available Drug Allergy Niacin Info Not Available Drug Allergy Morphine Sulfate Info Not Available Drug Allergy Lipitor abdominal pain Drug Allergy Dilaudid Info Not Available Drug Allergy Bactrim Info Not Available Drug Allergy Amoxicillin Info Not Available Drug Allergy Adhesive Info Not Available Non Drug Allergy Sulfamethoxazole-Trimethoprim Info Not Available Drug Allergy Tetanus&diphtheria Toxoid Info Not Available Non Drug Allergy Influenza Virus Vacc,specific Got flu and was told to never get the vaccine again Non Drug Allergy Problems Problem Type Condition Code Onset Dates [...] Active Problem Acquired hypothyroidism E03.9 Active Assessment Type 2 diabetes mellitus without complication E11.9 Active Assessment Iron deficiency anemia due to chronic blood loss D50.0 Active Assessment Acquired hypothyroidism E03.9 Active Assessment Vitamin B12 deficiency E53.8 Active Assessment Hyperlipidemia E78.5 Active Assessment Essential hypertension I10 Active Medications Medication Code System Code Instructions Start Date End Date Status Dosage Lisinopril [facility] [address]-49 20 MG Orally Once a day Sep 17, 2015 1 tablet Met[address] HCl ER [facility] 31752345270 750 MG Orally 2 times a day [address] [facility] 72931167653 100 MCG TAKE ONE TABLET BY MOUTH DAILY Sertraline HCl [facility] 25491006631 100 MG TAKE ONE AND ONE-HALF TABLETS BY MOUTH DAILY Mobic [facility] [address]-64 15 mg Aug 22, 2014 take 1 tablet (15 mg) by oral route once daily Procedures Procedure Coding System Code Date Office Visit, Est Pt., Level 3 CPT-4 59674 Sep 25, 2015 [facility] VISIT ESTABLISHED PATIENT CPT-4 G0467 Sep 25, 2015 Vital Signs Date/Time: Sep 25, 2015 Temperature 98.3 F Weight 272.3 lbs Height 62 in BMI 49.80 Index Blood Pressure Diastolic 76 mmHg Blood Pressure Systolic 128 mmHg Cardiac Monitoring Heart Rate 64 bpm Results No Known Results Summary Purpose eClinicalWorks Submission
--- OUTSIDE RECORDS SUMMARY | 2017-04-05 09:03 | XMS REPORT | Continuity of Care Document ---
Author Author [facility] Organization [facility] Address Unknown Phone Unavailable Care Team Providers Care Active Directory Systems Administrator Name Role Phone Lucrecia Sánchez PCP [phone] Source Comments Some departments are not documenting in the electronic medical record. If you do not see the information that you expected, contact Release of Information in the Health Information Management department at [phone] for further assistance in locating additional records.[facility] Active Allergies and Adverse Reactions Allergen [...] minutes solution until gone. Refrigerate once mixed. MELATONIN PO Take by mouth. Active budesonide (ENTOCORT EC) Take 3 Caps by mouth 90 Cap 1 12/14/19 Active 3 mg capsule every morning. 17 Indications: CROHN'S DISEASE prednisone (DELTASONE) 20 40 mg per day for 1 week; 35 Tab 0 01/15/20 Active mg tablet 30 mg per day for 1 week; 17 20 mg per day for 1 week; 10 mg per day for 1 week mercaptopurine Take 1 Tab by mouth 30 Tab 1 03/18/20 Active (PURINETHOL) 50 mg tablet daily. CYTOTOXIC 17 Take on an empty stomach, at least 1 hour before or 2 hours after food. vancomycin (VANCOCIN) 125 Take 1 Cap by mouth four 56 Cap 0 03/29/20 04/12/20 Active mg capsule times daily for 14 days. 17 17 mercaptopurine Take 1 Tab by mouth 30 Tab 1 01/15/20 03/14/20 Discontin (PURINETHOL) 50 mg tablet daily. CYTOTOXIC 17 17 ued Take on an empty stomach, at least 1 hour before or 2 hours after food. Active Problems Problem Noted Date Open wound anterior abdominal wall 06/18/2015 Status post partial colectomy 05/09/2015 Small bowel obstruction (HCC) 04/19/2015 Pyuria 03/08/2015 Iron deficiency anemia 03/07/2015 Vitamin B12 deficiency 03/07/2015 Essential hypertension 03/07/2015 Depression 03/07/2015 Colonic mass 03/07/2015 Chronic diarrhea 03/07/2015 Type 2 diabetes mellitus without complication ([facility]) 03/07/2015 Melena 03/06/2015 DM (diabetes mellitus) (HCC) 11/11/2014 Hypothyroid 11/11/2014 S/P dusty 11/11/2014 Most Recent Encounters Date Type Specialty Providers Description 03/25/2017 Hospital Don Barrera, Unspecified abdominal Encounter MB pain 03/22/2017 Telephone Gastroenterology Don Barrera, Hyperglycemia; Gas MBBS 03/21/2017 Orders Only Gastroenterology Don Barrera, Crohn's disease involving MBBS terminal ileum (HCC) 03/14/2017 Refill Gastroenterology Don Barrera, Crohn's colitis, MBBS unspecified complication (HCC) (Primary Dx) 02/21/2017 Telephone Gastroenterology Don Barrera, General Question [facility] 01/14/2017 Telephone Gastroenterology Don Barrera, Follow-up Phone Call [facility] 01/07/2017 Telephone Gastroenterology Don Barrera, Sore Throat [facility] 01/03/2017 Telephone Gastroenterology Don Barrera, Thrush [facility] Immunizations Name Dates Previously Given Next Due HEP A/HEP B Combined 12/13/2016 Vaccine Social History Tobacco Use Types Packs/Day Years Used Date Never Smoker Smokeless Tobacco: Never Used Alcohol Use Drinks/Week oz/Week Comments No Last Filed Vital Signs Vital Sign Reading Time Taken Blood Pressure 151/71 12/13/2016 3:46 PM GRINDING WHEEL OPERATOR Pulse 67 12/13/2016 3:46 PM GRINDING WHEEL OPERATOR Temperature 36.7 C (98.1 F) 12/13/2016 3:46 PM GRINDING WHEEL OPERATOR Respiratory Rate 16 12/13/2016 3:46 PM GRINDING WHEEL OPERATOR Height 1.575 m (5' 2") 12/13/2016 3:46 PM GRINDING WHEEL OPERATOR Weight 142.248 kg (313 lb 9.6 12/13/2016 3:46 PM GRINDING WHEEL OPERATOR oz) Body Mass Index 57.34 12/13/2016 3:46 PM GRINDING WHEEL OPERATOR Oxygen Saturation 94% 11/03/2016 1:20 PM GRINDING WHEEL OPERATOR Plan of Care Health Maintenance Due Date Last Done Comments Hepatitis C Screening 1955 Physical (Comprehensive) 1960 Exam Pertussis Vaccine 1964 Tetanus Vaccine 1970 Cervical Cancer Screening 1974 Breast Cancer Screening 1993 Shingles Vaccine 2013 Influenza Vaccine 06/10/2017 Colorectal Cancer 11/03/2026 11/03/2016, 11/03/2016, 11/03/2016 Additional history exists Screening Results from Last 3 Months * COMPREHENSIVE METABOLIC PANEL (03/25/2017 10:50 AM) Only the most recent of 2 results within the time period is included. Component Value Range Sodium 140 137-147 MMOL/L Potassium 3.9 3.5-5.1 MMOL/L Chloride 108 98-110 MMOL/L Glucose 280 (H) 70-100 MG/DL Blood Urea Nitrogen 10 7-25 MG/DL Creatinine 0.68 0.4-1.00 MG/DL Calcium 9.7 8.5-10.6 MG/DL Total Protein 6.4 6.0-8.0 G/DL Total Bilirubin 0.6 0.3-1.2 MG/DL Albumin 3.7 3.5-5.0 G/DL Alk Phosphatase 62 25-110 U/L AST (SGOT) 35 7-40 U/L CO2 24 21-30 MMOL/L ALT (SGPT) 21 7-56 U/L Anion Gap 8 3-12 eGFR Non >60Comment: >60 mL/min The eGFR is not validated for use in drug dosing adjustments. Continue to use estimated creatinine clearance per dosing reference text. Please contact the Clinical Pharmacist for questions. eGFR >60Comment: >60 mL/min The eGFR is not validated for use in drug dosing adjustments. Continue to use estimated creatinine clearance per dosing reference text. Please contact the Clinical Pharmacist for questions. Specimen Blood * CBC AND DIFF (03/25/2017 10:50 AM) Only the most recent of 2 results within the time period is included. Component Value Range White Blood Cells 5.4 4.5-11.0 K/UL RBC 4.34 4.0-5.0 M/UL Hemoglobin 13.4 12.0-15.0 GM/DL Hematocrit 39.7 36-45 % MCV 91.6 80-100 FL MCH 30.9 26-34 PG MCHC 33.7 32.0-36.0 G/DL RDW 14.2 11-15 % Platelet Count 173 150-400 K/UL MPV 7.9 7-11 FL Neutrophils 69 41-77 % Lymphocytes 21 (L) 24-44 % Monocytes 5 4-12 % Eosinophils 4 0-5 % Basophils 1 0-2 % Absolute Neutrophil Count 3.70 1.8-7.0 K/UL Absolute Lymph Count 1.10 1.0-4.8 K/UL Absolute Monocyte Count 0.30 0-0.80 K/UL Absolute Eosinophil Count 0.20 0-0.45 K/UL Absolute Basophil Count 0.00 0-0.20 K/UL Specimen Blood * [facility] TEST (03/25/2017 8:00 AM) Component Value Range [facility] CD[facility], C DIFFICILE TOXIN PCR,F Info [facility] Result SEE COMMENTS 03/26/2017 07:01 PM Test Result Flag Unit RefValue C. difficile Toxin PCR, F Specimen Source STOOL Result Negative Not Applicable ADDITIONAL INFORMATION This test was developed and its performance characteristics determined by [facility] in a manner consistent with CLIA requirements. This test has not been cleared or approved by the U.S. Food and Drug Administration. Test Performed by: [facility] - [address] [address] * GIARDIA SCREEN,FECAL (03/25/2017 8:00 AM) Component Value Range Battery Name GIARDIA SCREEN Specimen Description FECES Special Requests NONE Giardia EIA NEGATIVE FOR GIARDIA (LAMBLIA) INTESTINALIS Report Status FINAL 03/25/2017 Specimen Feces * CRYPTOSPORIDUM,FECAL (03/25/2017 8:00 AM) Component Value Range Battery Name CRYPTOSPORIDIUM Specimen Description FECES Special Requests NONE Cryptosporidium POSITIVE FOR CRYPTOSPORIDIUM NOTIFIED DR. BARRERA AT 1545 ON 03/25/17 BY . Report Status FINAL 03/25/2017 Specimen Feces * C DIFFICILE BY PCR (03/25/2017 8:00 AM) Component Value Range Battery Name C DIFFICILE PCR Specimen Description FECES Special Requests NONE C. Difficile Toxin B PCR TEST CANCELLED AND REORDERED MISC MAILOUT SEE [facility] TEST Report Status FINAL 03/25/2017 Specimen Feces
--- OUTSIDE RECORDS SUMMARY | 2017-04-05 09:03 | XMS REPORT ---
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 Active Problem Hyperlipidemia 272.4 Active Problem Diarrhea 787.91 Active Problem Hypertension 401.9 Active Problem Unspecified urinary incontinence 788.30 Active Problem Diabetes mellitus without mention of complication, type II or unspecified type, not stated as uncontrolled 250.00 Active Problem Anxiety state, unspecified 300.00 Active Problem Pain in joint, lower leg 719.46 Active Problem RUQ pain 789.01 Active Problem Vitamin B12 deficiency 266.2 Active Problem Iron deficiency anemia 280.9 Active Medications Medication Code System Code Instructions Start Date End Date Status Dosage MetFORMIN HCl ER [facility] [address]-56 750 MG Orally 2 times a day 1 tablet Results No Known Results Summary Purpose eClinicalWorks Submission
--- OUTSIDE RECORDS SUMMARY | 2017-04-05 09:03 | XMS REPORT ---
Author Author BRENTON DORAN [facility] eClinicalWorks Address Unknown Phone Unavailable Care Team Providers Care Nephrology Social Worker Name Role Phone BRENTON DORAN CP Unavailable Allergies No Known Allergies Problems Problem Type Condition Code Onset Dates Condition Status Problem Essential hypertension I10 Active Problem Right upper quadrant pain R10.11 Active Problem Hyperlipidemia E78.5 Active Assessment Chronic diarrhea K52.9 Active Problem Obstructive sleep apnea on CPAP G47.33 Active Problem Anxiety F41.9 Active Problem Type 2 diabetes mellitus without complication E11.9 Active Problem Chronic diarrhea K52.9 Active Problem Iron deficiency anemia due to chronic blood loss D50.0 Active Problem Vitamin B12 deficiency E53.8 Active Problem Major depressive disorder, recurrent episode, moderate F33.1 Active Problem Acquired hypothyroidism E03.9 Active Medications No Known Medications Procedures Procedure Coding System Code Date GIARDIA AG, EIA CPT-4 42815 January 23, 2016 LAB NOT BILLED BY [facility] CPT-4 NOBLL January 23, 2016 Results No Known Results Summary Purpose eClinicalWorks Submission
--- OUTSIDE RECORDS SUMMARY | 2017-04-05 09:03 | XMS REPORT ---
Author Author BRENTON DORAN Organization [facility] Address [address] [place] [address] Care Team Providers Care Research Agricultural Engineer Name Role Phone BRENTON DORAN Unavailable PROBLEMS Type Condition ICD9-CM Code [id number] Code Onset Dates Condition Status SNOMED Code Problem Right upper quadrant pain R10.11 Active 77825805 Problem Iron deficiency anemia due to chronic blood loss D50.0 Active 75605459 Problem Vitamin B12 deficiency E53.8 Active 371176404 Problem Chronic tension-type headache, intractable G44.221 Active 342244812 Problem Chronic diarrhea K52.9 Active 403721129 Problem Major depressive disorder, recurrent episode, moderate F33.1 Active 616573189 Problem Acquired hypothyroidism E03.9 Active 519198543 Problem Anxiety F41.9 Active 15500826 Problem Type 2 diabetes mellitus without complication E11.9 Active 54625451 Problem Sensorineural hearing loss of right ear H90.41 Active 80179313 Problem Obstructive sleep apnea on CPAP G47.33 Active 04586194 Problem Essential hypertension I10 Active 26323214 Problem Fatty liver K76.0 Active 110370849 Problem Hyperlipidemia E78.5 Active 57946979 ALLERGIES Unknown Allergies SOCIAL HISTORY No smoking Hx information available PLAN OF CARE VITAL SIGNS MEDICATIONS Unknown Medications RESULTS No Results PROCEDURES No Known procedures IMMUNIZATIONS No Known Immunizations
--- OUTSIDE RECORDS SUMMARY | 2017-04-05 09:04 | XMS REPORT ---
Author Author BRENTON DORAN [facility] eClinicalWorks Address Unknown Phone Unavailable Care Team Providers Care Manager Of Network Name Role Phone BRENTON DORAN CP Unavailable Allergies No Known Allergies Problems Problem Type Condition ICD-9 Code Onset Dates Condition Status Problem Hypothyroidism [...] Start Date End Date Status Dosage Lisinopril [facility] [address]-41 20 MG Orally Once a day Jun 27, 2015 1 tablet Results No Known Results Summary Purpose eClinicalWorks Submission
--- OUTSIDE RECORDS SUMMARY | 2017-04-05 09:04 | XMS REPORT ---
Author Author BRENTON DORAN [facility] eClinicalWorks Address Unknown Phone Unavailable Care Team Providers Care Aerial Installer Name Role Phone BRENTON DORAN CP Unavailable Allergies No Known Allergies Problems Problem Type Condition Code Onset Dates Condition Status Problem Hyperlipidemia E78.5 Active Problem Vitamin B12 deficiency E53.8 Active Problem Right upper quadrant pain R10.11 Active Problem Chronic diarrhea K52.9 Active Problem Anxiety F41.9 Active Problem Chronic tension-type headache, intractable G44.221 Active Problem Acquired hypothyroidism E03.9 Active Problem Iron deficiency anemia due to chronic blood loss D50.0 Active Problem Type 2 diabetes mellitus without complication E11.9 Active Problem Major depressive disorder, recurrent episode, moderate F33.1 Active Problem Sensorineural hearing loss of right ear H90.41 Active Problem Obstructive sleep apnea on CPAP G47.33 Active Problem Essential hypertension I10 Active Medications Medication Code System Code Instructions Start Date End Date Status Dosage Zetia [facility] [address]-03 10 mg Orally Once a day Jul 30, 2016 1 tablet Results No Known Results Summary Purpose eClinicalWorks Submission
--- OUTSIDE RECORDS SUMMARY | 2017-04-05 09:04 | XMS REPORT ---
Author Author BRENTON DORAN [facility] eClinicalWorks Address Unknown Phone Unavailable Care Team Providers Care Pricing Director Name Role Phone BRENTON DORAN CP Unavailable [...] disorder, recurrent episode, moderate F33.1 Active Problem Fatty liver K76.0 Active Problem Sensorineural hearing loss of right ear H90.41 Active Problem Obstructive sleep apnea on CPAP G47.33 Active Assessment Vitamin B12 deficiency E53.8 Active Problem Essential hypertension I10 Active Medications No Known Medications Procedures Procedure Coding System Code Date THER/PROPH/DIAG INJ, SC/IM CPT-4 14303 Aug 23, 2016 B12, VITAMIN (UP TO 1000 MCG) CPT-4 J3420 Aug 23, 2016 Results No Known Results Summary Purpose eClinicalWorks Submission
--- OUTSIDE RECORDS SUMMARY | 2017-04-05 09:04 | XMS REPORT ---
Author Author BRENTON DORAN [facility] eClinicalWorks Address Unknown Phone Unavailable Care Team Providers Care Oracle Adf Consultant Name Role Phone BRENTON DORAN CP Unavailable [...] Instructions Start Date End Date Status Dosage Wellbutrin [facility] [address]-01 200 mg Orally Twice a day Aug 19, 2016 1 tablet Results No Known Results Summary Purpose eClinicalWorks Submission
--- OUTSIDE RECORDS SUMMARY | 2017-04-05 09:05 | XMS REPORT ---
Author Author BRENTON DORAN [facility] eClinicalWorks Address Unknown Phone Unavailable Care Team Providers Care Drawer In Plain Loom Name Role Phone BRENTON DORAN CP Unavailable [...] depressive disorder, recurrent episode, moderate F33.1 Active Assessment Iron deficiency anemia due to chronic blood loss D50.0 Active Problem Obstructive sleep apnea on CPAP G47.33 Active Problem Essential hypertension I10 Active Medications No Known Medications Procedures Procedure Coding System Code Date THER/PROPH/DIAG INJ, SC/IM CPT-4 44379 Jul 23, 2016 B12, VITAMIN (UP TO 1000 MCG) CPT-4 J3420 Jul 23, 2016 Results No Known Results Summary Purpose eClinicalWorks Submission
--- OUTSIDE RECORDS SUMMARY | 2017-04-05 09:05 | XMS REPORT ---
Author Author BRENTON DORAN [facility] eClinicalWorks Address Unknown Phone Unavailable Care Team Providers Care Furnace Installer Name Role Phone BRENTON DORAN CP [...] Active Problem Acquired hypothyroidism E03.9 Active Assessment Essential hypertension I10 Active Assessment Type 2 diabetes mellitus without complication E11.9 Active Problem Obstructive sleep apnea on CPAP G47.33 Active Medications Medication Code System Code Instructions Start Date End Date Status Dosage Lisinopril [facility] [address]-26 30 MG Orally Once a day December 17, 2015 1 tablet Meloxicam [facility] 44236351073 15 MG TAKE ONE TABLET BY MOUTH ONCE DAILY Cyanocobalamin [facility] [address]-22 1000 MCG/ML Injection 1 MetFORMIN HCl ER [facility] 59384519726 750 MG Orally 2 times a day 1 tablet Levothyroxine Sodium [facility] 80688017112 100 MCG TAKE ONE TABLET BY MOUTH DAILY Ferrous Sulfate [facility] [address]-05 325 (65 Fe) MG Orally Once a day December 1 tablet Sertraline HCl [facility] [address]-83 100 MG Orally Once a day December 17, 2015 1 and one half tablet Procedures Procedure Coding System Code Date FOOT EXAM PERFORMED CPT-4 2028F January 30, 2016 [facility] VISIT ESTABLISHED PATIENT CPT-4 G0467 January 30, 2016 GLYCATED HEMOGLOBIN TEST CPT-4 56963 January 30, 2016 Office Visit, Est Pt., Level 3 CPT-4 02242 January 30, 2016 Vital Signs Date/Time: January 30, 2016 Temperature 97.3 F Weight 294.4 lbs Height 62 in BMI 53.84 Index Blood Pressure Diastolic 68 mmHg Blood Pressure Systolic 133 mmHg Cardiac Monitoring Heart Rate 77 bpm Results Name Result Date Reference Range Unit Abnormality Flag A1C (IN HOUSE) ----A1C IN HOUSE 5.9 20160130 4.3 - 5.6 % ----Previous A1c 5.6 20160130 ----Lot [id number] ----Exp date [id number] FOOT EXAM PERFORMED Summary Purpose eClinicalWorks Submission
--- OUTSIDE RECORDS SUMMARY | 2017-04-05 09:05 | XMS REPORT ---
Author Author BRENTON DORAN [facility] eClinicalWorks Address Unknown Phone Unavailable Care Team Providers Care Manager Medicaid Name Role Phone BRENTON DORAN CP Unavailable Allergies, Adverse Reactions, Alerts Substance Reaction Event Type Sulfamethoxazole-Trimethoprim Info Not Available Drug Allergy Penicillin V Potassium Info Not Available Drug Allergy Niacin Info Not Available Drug Allergy Lipitor abdominal pain Drug Allergy Bactrim Info Not Available Drug Allergy Amoxicillin Info Not Available Drug Allergy Adhesive Info Not Available Non Drug Allergy Tetanus&diphtheria Toxoid Info Not Available Non Drug Allergy Influenza Virus Vacc,specific Got flu and was told to never get the vaccine again Non Drug Allergy Problems Problem Type Condition ICD-9 Code Onset [...] Pain in joint, lower leg 719.46 Active Assessment Hypertension 401.9 Active Assessment Diabetes mellitus without mention of complication, type II or unspecified type, not stated as uncontrolled 250.00 Active Assessment Hyperlipidemia 272.4 Active Problem RUQ pain 789.01 Active Assessment Hypothyroidism 244.9 Active Problem Vitamin B12 deficiency 266.2 Active Assessment Iron deficiency anemia 280.9 Active Problem Iron deficiency anemia 280.9 Active Medications Medication Code System Code Instructions Start Date End Date Status Dosage Hydrocodone-Acetaminophen [facility] [address]-44 5-325 MG Orally every 4 hrs Jun 06, 2015 1 tablet as needed tizanidine NDC 0 4 mg December 31, 2014 1 Tablet by Po route 2 times per day PR[place] [address]-43 40 MG Orally Once a day Jun 13, 2015 1 tablet in the evening Sertraline HCl [facility] 15221949766 100 MG TAKE ONE AND ONE-HALF TABLETS BY MOUTH DAILY Hydrochlorothiazide ND 19629570819 25 MG TAKE ONE TABLET BY MOUTH DAILY Levothyroxine Sodium [facility] 18671179525 100 MCG TAKE ONE TABLET BY MOUTH DAILY metformin NDC 0 750 mg December 31, 2014 1 Tablet by Oral route 2 times per day replaces metformin HCL 850mg Procedures Procedure Coding System Code Date [facility] VISIT ESTABLISHED PATIENT CPT-4 G0467 Jun 24, 2015 Office Visit, Est Pt., Level 4 CPT-4 59121 Jun 24, 2015 GLYCATED HEMOGLOBIN TEST CPT-4 00796 Jun 24, 2015 MICROALBUMIN, SEMIQUANT CPT-4 94240 Jun 24, 2015 Vital Signs Date/Time: Jun 24, 2015 Temperature 98.0 F Weight 264.1 lbs Height 62 in BMI 48.30 Index Blood Pressure Diastolic 84 mmHg Blood Pressure Systolic 150 mmHg Cardiac Monitoring Heart Rate 70 bpm Results No Known Results Summary Purpose eClinicalWorks Submission
--- OUTSIDE RECORDS SUMMARY | 2017-04-05 09:05 | XMS REPORT ---
Author Author BRENTON DORAN Organization [employer] Address Unknown Phone Unavailable Care Team Providers Care Translation Director Name Role Phone BRENTON DORAN CP [...] disorder, recurrent episode, moderate F33.1 Active Assessment Essential hypertension I10 Active Assessment Acquired hypothyroidism E03.9 Active Assessment Type 2 diabetes mellitus without complication E11.9 Active Assessment Hyperlipidemia E78.5 Active Problem Obstructive sleep apnea on CPAP G47.33 Active Assessment Iron deficiency anemia due to chronic blood loss D50.0 Active Problem Essential hypertension I10 Active Medications No Known Medications Procedures Procedure Coding System Code Date VENIPUNCT, ROUTINE* CPT-4 77552 Jul 23, 2016 LAB NOT BILLED BY [facility] CPT-4 NOBLL Jul 23, 2016 Results Name Result Date Reference Range Unit Abnormality Flag ROUTINE VENIPUNCTURE Summary Purpose [employer] Submission
--- OUTSIDE RECORDS SUMMARY | 2017-04-05 09:05 | XMS REPORT | Continuity of Care Document ---
Author Author [facility] Address Unknown Phone Unavailable Allergies Active Description Code Type Severity Reaction Onset Reported/Identified Relationship to Patient Clinical Status Yes Influenza Virus Vacc,Specific Drug Allergy N/A N/A 07/25/2013 Yes Lipitor Drug Allergy N/A N/A 07/25/2013 Yes niacin Drug Allergy N/A N/A 07/25/2013 Yes Penicillins Drug Allergy N/A N/A 07/25/2013 Yes Sulfa (Sulfonamide Antibiotics) Drug Allergy N/A N/A 07/25/2013 Yes Tetanus&Diphtheria Toxoid Drug Allergy N/A N/A 07/25/2013 Yes No Allergy Information Available [id number] Drug Allergy Unknown N/A 08/29/2014 Yes adhesive tape [id number] Drug Allergy Unknown HIVES 12/02/2015 Yes atorvastatin [id number] Drug Allergy Unknown NAUSEA 12/02/2015 Yes hydromorphone [id number] Drug Allergy Unknown hallucinations 12/02/2015 Yes Influenza Virus Vaccines [id number] Drug Allergy Unknown NAUSEA 12/02/2015 Yes morphine [id number] Drug Allergy Unknown hallcination 12/02/2015 Yes myocins myocins Unknown NAUSEA 12/02/2015 Yes Penicillins [id number] Drug Allergy Unknown HIVES 12/02/2015 Yes simvastatin [id number] Drug Allergy Unknown NAUSEA 12/02/2015 Yes Sulfa (Sulfonamide Antibiotics) [id number] Drug Allergy Unknown HIVES 12/02/2015 Yes tetanus diphtheria toxoids [id number] Drug Allergy Unknown HIVES 12/02/2015 Yes tetanus and diphtheria toxoids [id number] Drug Allergy Unknown HIVES 12/02/2015 Medications Problems Date Dx Coded Attending Type Code Diagnosis Diagnosed By 07/25/2013 GUMARO KIM DO 250.00 DIABETES II CONTROLLED (UNCOMPLICATED) 07/25/2013 STEFANIE LECHUGA APRN 250.00 DIABETES II CONTROLLED ( UNCOMPLICATED) 07/25/2013 VELMA FOOD SUPERVISOR, WIL R 250.00 DIABETES II CONTROLLED (UNCOMPLICATED) 07/25/2013 VELMA FOOD SUPERVISOR, WIL R 250.00 DIABETES II CONTROLLED (UNCOMPLICATED) 07/25/2013 VELMA FOOD SUPERVISOR, WIL R 250.00 DIABETES II CONTROLLED (UNCOMPLICATED) 07/25/2013 VELMA FOOD SUPERVISOR, WIL R 250.00 DIABETES II CONTROLLED (UNCOMPLICATED) 07/25/2013 VELMA FOOD SUPERVISOR, WIL R 250.00 DIABETES II CONTROLLED (UNCOMPLICATED) 07/25/2013 VELMA FOOD SUPERVISOR, WIL R 250.00 DIABETES II CONTROLLED (UNCOMPLICATED) 07/25/2013 CARA BUENROSTRO DDS 250.00 DIABETES II CONTROLLED (UNCOMPLICATED) 07/25/2013 KIM DO, GUMARO K 250.00 DIABETES II CONTROLLED (UNCOMPLICATED) 07/25/2013 VELMA FOOD SUPERVISOR, WIL R 250.00 DIABETES II CONTROLLED (UNCOMPLICATED) 07/25/2013 VELMA FOOD SUPERVISOR, WIL R 250.00 DIABETES II CONTROLLED (UNCOMPLICATED) 07/25/2013 PAOLO OCAMPO PSYD ANN L 250.00 DIABETES II CONTROLLED (UNCOMPLICATED ) 07/25/2013 VELMA FOOD SUPERVISOR, WIL R 250.00 DIABETES II CONTROLLED (UNCOMPLICATED) 07/25/2013 PAOLO OCAMPO PSYD ANN L 250.00 DIABETES II CONTROLLED (UNCOMPLICATED ) 07/25/2013 VELMA FOOD SUPERVISOR, WIL R 250.00 DIABETES II CONTROLLED (UNCOMPLICATED) 07/25/2013 VELMA FOOD SUPERVISOR, WIL R 250.00 DIABETES II CONTROLLED (UNCOMPLICATED) 07/25/2013 VELMA FOOD SUPERVISOR, WIL R 250.00 DIABETES II CONTROLLED (UNCOMPLICATED) 08/08/2013 ALEXANDREA JONES, STEFANIE R 786.2 COUGH 08/08/2013 VELMA FOOD SUPERVISOR, WIL R 786.2 COUGH 08/08/2013 VELMA FOOD SUPERVISOR, WIL R 786.2 COUGH 08/08/2013 VELMA FOOD SUPERVISOR, WIL R 786.2 COUGH 08/08/2013 VELMA FOOD SUPERVISOR, WIL R 786.2 COUGH 08/08/2013 VELMA FOOD SUPERVISOR, WIL R 786.2 COUGH 08/08/2013 VELMA FOOD SUPERVISOR, WIL R 786.2 COUGH 08/08/2013 CHITRA CHACON, CARA 786.2 COUGH 08/08/2013 KIM DO, GUMARO K 786.2 COUGH 08/08/2013 VELMA FOOD SUPERVISOR, WIL R 786.2 COUGH 08/08/2013 VELMA FOOD SUPERVISOR, WIL R 786.2 COUGH 08/08/2013 PAOLO OCAMPO PSYD L 786.2 COUGH 08/08/2013 VELMA FOOD SUPERVISOR, WIL R 786.2 COUGH 08/08/2013 PAOLO OCAMPO PSYD L 786.2 COUGH 08/08/2013 VELMA FOOD SUPERVISOR, WIL R 786.2 COUGH 08/08/2013 VELMA FOOD SUPERVISOR, WIL R 786.2 COUGH 08/08/2013 VELMA FOOD SUPERVISOR, WIL R 786.2 COUGH 09/04/2013 VELMA FOOD SUPERVISOR, WIL R V78.0 ANEMIA SCREENING 09/04/2013 VELMA FOOD SUPERVISOR, WIL R V78.0 ANEMIA SCREENING 09/04/2013 VELMA FOOD SUPERVISOR, WIL R V78.0 ANEMIA SCREENING 09/04/2013 VELMA FOOD SUPERVISOR, WIL R V78.0 ANEMIA SCREENING 09/04/2013 VELMA FOOD SUPERVISOR, WIL R V78.0 ANEMIA SCREENING 09/04/2013 CHITRA ACOSTAS, CARA V78.0 ANEMIA SCREENING 09/04/2013 KIM DO, GUMARO K V78.0 ANEMIA SCREENING 09/04/2013 VELMA FOOD SUPERVISOR, WIL R V78.0 ANEMIA SCREENING 09/04/2013 VELMA FOOD SUPERVISOR, WIL R V78.0 ANEMIA SCREENING 09/04/2013 PAOLO OCAMPO PSYD L V78.0 ANEMIA SCREENING 09/04/2013 VELMA FOOD SUPERVISOR, WIL R V78.0 ANEMIA SCREENING 09/04/2013 PAOLO OCAMPO PSYD L V78.0 ANEMIA SCREENING 09/04/2013 VELMA FOOD SUPERVISOR, WIL R V78.0 ANEMIA SCREENING 09/04/2013 VELMA FOOD SUPERVISOR, WIL R V78.0 ANEMIA SCREENING 09/04/2013 VELMA FOOD SUPERVISOR, WIL R V78.0 ANEMIA SCREENING 01/17/2014 VELMA FOOD SUPERVISOR, WIL R 789.07 ABDOMINAL PAIN GENERALIZED 01/17/2014 VELMA FOOD SUPERVISOR, WIL R 789.07 ABDOMINAL PAIN GENERALIZED 01/17/2014 VELMA FOOD SUPERVISOR, WIL R 789.07 ABDOMINAL PAIN GENERALIZED 01/17/2014 BUENROSTRO DDS, CARA 789.07 ABDOMINAL PAIN GENERALIZED 01/17/2014 KIM DO, GUMARO K 789.07 ABDOMINAL PAIN GENERALIZED 01/17/2014 VELMA FOOD SUPERVISOR, WIL R 789.07 ABDOMINAL PAIN GENERALIZED 01/17/2014 VELMA FOOD SUPERVISOR, WIL R 789.07 ABDOMINAL PAIN GENERALIZED 01/17/2014 PAOLO OCAMPO PSYD L 789.07 ABDOMINAL PAIN GENERALIZED 01/17/2014 VELMA FOOD SUPERVISOR, WIL R 789.07 ABDOMINAL PAIN GENERALIZED 01/17/2014 PAOLO OCAMPO PSYD L 789.07 ABDOMINAL PAIN GENERALIZED 01/17/2014 VELMA FOOD SUPERVISOR, WIL R 789.07 ABDOMINAL PAIN GENERALIZED 01/17/2014 VELMA FOOD SUPERVISOR, WIL R 789.07 ABDOMINAL PAIN GENERALIZED 01/17/2014 VELMA FOOD SUPERVISOR, WIL R 789.07 ABDOMINAL PAIN GENERALIZED 01/29/2014 VELMA FOOD SUPERVISOR, WIL R 789.00 ABDOMINAL PAIN UNSPECIFIED SITE 01/29/2014 VELMA FOOD SUPERVISOR, WIL R 789.00 ABDOMINAL PAIN UNSPECIFIED SITE 01/29/2014 CARA BUENROSTRO DDS 789.00 ABDOMINAL PAIN UNSPECIFIED SITE 01/29/2014 GUMARO KIM DO 789.00 ABDOMINAL PAIN UNSPECIFIED SITE 01/29/2014 VELMA FOOD SUPERVISOR, WIL R 789.00 ABDOMINAL PAIN UNSPECIFIED SITE 01/29/2014 VELMA FOOD SUPERVISOR, WIL R 789.00 ABDOMINAL PAIN UNSPECIFIED SITE 01/29/2014 PAOLO OCAMPO PSYD L 789.00 ABDOMINAL PAIN UNSPECIFIED SITE 01/29/2014 VELMA FOOD SUPERVISOR, WIL R 789.00 ABDOMINAL PAIN UNSPECIFIED SITE 01/29/2014 PAOLO OCAMPO PSYD L 789.00 ABDOMINAL PAIN UNSPECIFIED SITE 01/29/2014 VELMA FOOD SUPERVISOR, WIL R 789.00 ABDOMINAL PAIN UNSPECIFIED SITE 01/29/2014 VELMA FOOD SUPERVISOR, WIL R 789.00 ABDOMINAL PAIN UNSPECIFIED SITE 01/29/2014 VELMA FOOD SUPERVISOR, WIL R 789.00 ABDOMINAL PAIN UNSPECIFIED SITE 03/19/2014 VELMA FOOD SUPERVISOR, WIL R 719.46 PAIN IN JOINT INVOLVING LOWER LEG 03/19/2014 VELMA FOOD SUPERVISOR, WIL R 780.79 OTHER MALAISE AND FATIGUE 03/19/2014 CHITRA ACOSTASCARA 719.46 PAIN IN JOINT INVOLVING LOWER LEG 03/19/2014 CHITRA ACOSTASCARA 780.79 OTHER MALAISE AND FATIGUE 03/19/2014 KIM DO, GUMARO K 719.46 PAIN IN JOINT INVOLVING LOWER LEG 03/19/2014 KIM DO, GUMARO K 780.79 OTHER MALAISE AND FATIGUE 03/19/2014 VELMA FOOD SUPERVISOR, WIL R 719.46 PAIN IN JOINT INVOLVING LOWER LEG 03/19/2014 VELMA SCHNEIDERN, WIL R 780.79 OTHER MALAISE AND FATIGUE 03/19/2014 VELMA SCHNEIDERN, WIL R 719.46 PAIN IN JOINT INVOLVING LOWER LEG 03/19/2014 VELMA SCHNEIDERN, WIL R 780.79 OTHER MALAISE AND FATIGUE 03/19/2014 PAOLO OCAMPO PSYD L 719.46 PAIN IN JOINT INVOLVING LOWER LEG 03/19/2014 PAOLO OCAMPO PSYD L 780.79 OTHER MALAISE AND FATIGUE 03/19/2014 VELMA SCHNEIDERN, WIL R 719.46 PAIN IN JOINT INVOLVING LOWER LEG 03/19/2014 VELMA JONES, WIL R 780.79 OTHER MALAISE AND FATIGUE 03/19/2014 PAOLO OCAMPO PSYD L 719.46 PAIN IN JOINT INVOLVING LOWER LEG 03/19/2014 PAOLO OCAMPO PSYD L 780.79 OTHER MALAISE AND FATIGUE 03/19/2014 VELMA SCHNEIDERN, WIL R 719.46 PAIN IN JOINT INVOLVING LOWER LEG 03/19/2014 VELMA JONES, WIL R 780.79 OTHER MALAISE AND FATIGUE 03/19/2014 VELMA SCHNEIDERN, WIL R 719.46 PAIN IN JOINT INVOLVING LOWER LEG 03/19/2014 VELMA JONES, WIL R 780.79 OTHER MALAISE AND FATIGUE 03/19/2014 VELMA JONES, WIL R 719.46 PAIN IN JOINT INVOLVING LOWER LEG 03/19/2014 VELMA JONES, WIL R 780.79 OTHER MALAISE AND FATIGUE 04/09/2014 CARA BUENROSTRO DDS 787.91 DIARRHEA 04/09/2014 CARA BUENROSTRO DDS 789.06 ABDOMINAL PAIN EPIGASTRIC 04/09/2014 GUMARO KIM DO K 787.91 DIARRHEA 04/09/2014 KIM DOGUMARO K 789.06 ABDOMINAL PAIN EPIGASTRIC 04/09/2014 WIL CARREON APRN R 787.91 DIARRHEA 04/09/2014 VELMA JONES WIL R 789.06 ABDOMINAL PAIN EPIGASTRIC 04/09/2014 VELMA FOOD SUPERVISOR, WIL R 787.91 DIARRHEA 04/09/2014 VELMA FOOD SUPERVISOR, WIL R 789.06 ABDOMINAL PAIN EPIGASTRIC 04/09/2014 PAOLO OCAMPO PSYD L 787.91 DIARRHEA 04/09/2014 PAOLO OCAMPO PSYD L 789.06 ABDOMINAL PAIN EPIGASTRIC 04/09/2014 VELMA FOOD SUPERVISOR, WIL R 787.91 DIARRHEA 04/09/2014 VELMA FOOD SUPERVISOR, WIL R 789.06 ABDOMINAL PAIN EPIGASTRIC 04/09/2014 PAOLO OCAMPO PSYD L 787.91 DIARRHEA 04/09/2014 PAOLO OCAMPO PSYD L 789.06 ABDOMINAL PAIN EPIGASTRIC 04/09/2014 VELMA FOOD SUPERVISOR, WIL R 787.91 DIARRHEA 04/09/2014 VELMA FOOD SUPERVISOR, WIL R 789.06 ABDOMINAL PAIN EPIGASTRIC 04/09/2014 VELMA FOOD SUPERVISOR, WIL R 787.91 DIARRHEA 04/09/2014 VELMA FOOD SUPERVISOR, WIL R 789.06 ABDOMINAL PAIN EPIGASTRIC 04/09/2014 VELMA FOOD SUPERVISOR, WIL R 787.91 DIARRHEA 04/09/2014 VELMA FOOD SUPERVISOR, WIL R 789.06 ABDOMINAL PAIN EPIGASTRIC 05/02/2014 GUMARO KIM DO 733.92 CHONDROMALACIA 05/02/2014 VELMA FOOD SUPERVISOR, WIL R 733.92 CHONDROMALACIA 05/02/2014 VELMA FOOD SUPERVISOR, WIL R 733.92 CHONDROMALACIA 05/02/2014 PAOLO OCAMPO PSYD L 733.92 CHONDROMALACIA 05/02/2014 VELMA FOOD SUPERVISOR, WIL R 733.92 CHONDROMALACIA 05/02/2014 PAOLO OCAMPO PSYD L 733.92 CHONDROMALACIA 05/02/2014 VELMA FOOD SUPERVISOR, WIL R 733.92 CHONDROMALACIA 05/02/2014 VELMA FOOD SUPERVISOR, WIL R 733.92 CHONDROMALACIA 05/02/2014 VELMA FOOD SUPERVISOR, WLI R 733.92 CHONDROMALACIA 05/22/2014 VELMA JONES, WIL R 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 05/22/2014 VELMA JONES WIL R 272.1 HYPERTRIGLYCERIDEMIA 05/22/2014 VELMA JONES, WIL R 285.9 ANEMIA 05/22/2014 VELMA JONES, WIL R 788.30 URINARY INCONTINENCE UNSPECIFIED 05/22/2014 VELMA SCHNEIDERN, WIL R 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 05/22/2014 VELMA JONES WIL R 272.1 HYPERTRIGLYCERIDEMIA 05/22/2014 VELMA JONES, WIL R 285.9 ANEMIA 05/22/2014 VELMA JONES, WIL R 788.30 URINARY INCONTINENCE UNSPECIFIED 05/22/2014 PAOLO OCAMPO PSYD ANN L 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 05/22/2014 PAOLO OCAMPO PSYD ANN L 272.1 HYPERTRIGLYCERIDEMIA 05/22/2014 PAOLO OCAMPO PSYD ANN L 285.9 ANEMIA 05/22/2014 PAOLO OCAMPO PSYD ANN L 788.30 URINARY INCONTINENCE UNSPECIFIED 05/22/2014 VELMA JONES WIL R 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 05/22/2014 KAREEM CARREON APRNINA R 272.1 HYPERTRIGLYCERIDEMIA 05/22/2014 VELMA JONES WIL R 285.9 ANEMIA 05/22/2014 VELMA JONES WIL R 788.30 URINARY INCONTINENCE UNSPECIFIED 05/22/2014 PAOLO OCAMPO PSYD ANN L 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 05/22/2014 PAOLO OCAMPO PSYD ANN L 272.1 HYPERTRIGLYCERIDEMIA 05/22/2014 PAOLO OCAMPO PSYD ANN L 285.9 ANEMIA 05/22/2014 PAOLO OCAMPO PSYD ANN L 788.30 URINARY INCONTINENCE UNSPECIFIED 05/22/2014 VELMA JONES WIL R 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 05/22/2014 VELMA JONES WIL R 272.1 HYPERTRIGLYCERIDEMIA 05/22/2014 VELMA JONES WIL R 285.9 ANEMIA 05/22/2014 VELMA JONES, WIL R 788.30 URINARY INCONTINENCE UNSPECIFIED 05/22/2014 VELMA JONES WIL R 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 05/22/2014 VELMA FOOD SUPERVISOR, WIL R 272.1 HYPERTRIGLYCERIDEMIA 05/22/2014 VELMA FOOD SUPERVISOR, WIL R 285.9 ANEMIA 05/22/2014 VELMA FOOD SUPERVISOR, WIL R 788.30 URINARY INCONTINENCE UNSPECIFIED 05/22/2014 VELMA FOOD SUPERVISOR, WIL R 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 05/22/2014 VELMA FOOD SUPERVISOR, WIL R 272.1 HYPERTRIGLYCERIDEMIA 05/22/2014 VELMA FOOD SUPERVISOR, WIL R 285.9 ANEMIA 05/22/2014 VELMA FOOD SUPERVISOR, WIL R 788.30 URINARY INCONTINENCE UNSPECIFIED 06/18/2014 VELMA FOOD SUPERVISOR, WIL R 300.00 ANXIETY UNSPEC 06/18/2014 PAOLO OCAMPO PSYD L 300.00 ANXIETY UNSPEC 06/18/2014 VELMA FOOD SUPERVISOR, WIL R 300.00 ANXIETY UNSPEC 06/18/2014 PAOLO OCAMPO PSYD L 300.00 ANXIETY UNSPEC 06/18/2014 VELMA FOOD SUPERVISOR, WIL R 300.00 ANXIETY UNSPEC 06/18/2014 VELMA FOOD SUPERVISOR, WIL R 300.00 ANXIETY UNSPEC 06/18/2014 VELMA FOOD SUPERVISOR, WIL R 300.00 ANXIETY UNSPEC 06/28/2014 PAOLO OCAMPO PSYD L 296.32 MO DEPRESSIVE RECURRENT MODERATE 06/28/2014 VELMA FOOD SUPERVISOR, WIL R 296.32 MO DEPRESSIVE RECURRENT MODERATE 06/28/2014 PAOLO OCAMPO PSYD L 296.32 MO DEPRESSIVE RECURRENT MODERATE 06/28/2014 VELMA FOOD SUPERVISOR, WIL R 296.32 MO DEPRESSIVE RECURRENT MODERATE 06/28/2014 VELMA FOOD SUPERVISOR, WIL R 296.32 MO DEPRESSIVE RECURRENT MODERATE 06/28/2014 VELMA FOOD SUPERVISOR, WIL R 296.32 MO DEPRESSIVE RECURRENT MODERATE 10/16/2014 VELMA, WIL R FOOD SUPERVISOR Ot 724.5 10/16/2014 VELMA WIL R FOOD SUPERVISOR Ot 789.01 10/16/2014 VELMA WIL R FOOD SUPERVISOR Ot 793.6 10/16/2014 VELMA WIL R FOOD SUPERVISOR Ot 787.91 10/16/2014 VELMA WIL R FOOD SUPERVISOR Ot 789.06 10/29/2014 VELMA WIL R FOOD SUPERVISOR Ot 787.91 10/29/2014 VELMA, WIL R FOOD SUPERVISOR Ot 789.06 12/31/2014 VELMA, WIL R FOOD SUPERVISOR Ot 724.5 12/31/2014 VELMA, WIL R FOOD SUPERVISOR Ot 789.01 12/31/2014 VELMA, WIL R FOOD SUPERVISOR Ot 793.6 12/31/2014 VELMA, WIL R FOOD SUPERVISOR Ot 787.91 12/31/2014 VELMA, WIL R FOOD SUPERVISOR Ot 789.06 04/18/2015 VELMA, WIL R FOOD SUPERVISOR Ot 724.5 04/18/2015 VELMA, WIL R FOOD SUPERVISOR Ot 789.01 04/18/2015 VELMA, WIL R FOOD SUPERVISOR Ot 793.6 04/18/2015 VELMA, WIL R FOOD SUPERVISOR Ot 787.91 04/18/2015 VELMA, WIL R FOOD SUPERVISOR Ot 789.06 04/18/2015 JASON SOMERS, ULI Dennis Ot 553.1 05/09/2015 JASON SOMERS, ULI Dennis Ot 564.00 08/21/2015 JASON SOMERS, ULI Dennis Ot 564.00 08/21/2015 JASON SOMERS, ULI Dennis Ot 553.1 09/02/2015 JASON SOMERS, ULI Dennis Ot 553.1 09/02/2015 JASON SOMERS, ULI Dennis Ot 564.00 12/10/2015 ADEN SOMERS, RONY Sykes Ot E05.90 THYROTOXICOSIS, [facility] WITHOUT THYROTOXIC 12/10/2015 ADEN SOMERS, RONY Sykes Ot E11.9 TYPE 2 DIABETES MELLITUS WITHOUT COMPLIC 12/10/2015 RONY SAMANIEGO MD Ot E78.0 PURE HYPERCHOLESTEROLEMIA 12/10/2015 ADEN SOMERS, RONY Sykse Ot G56.02 CARPAL TUNNEL SYNDROME, LEFT UPPER LIMB 12/10/2015 ADEN SOMERS, RONY Sykes Ot I10 ESSENTIAL (PRIMARY) HYPERTENSION 12/10/2015 ADEN SOMERS, RONY Sykes Ot 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 01/25/2016 MAYTE DICKERSON APRN Ot S32.492A OTH FRACTURE OF LEFT ACETABULUM, INIT FO 01/25/2016 MAYTE DICKERSON APRN Ot X58.XXXA EXPOSURE TO OTHER SPECIFIED FACTORS, INI 01/25/2016 MAYTE DICKERSON APRN Ot Y92.[address] [facility] PL[address] IN [facility] NON[facility] ( PRIVATE 01/25/2016 DICKERSON, PETER J FOOD SUPERVISOR Ot Y93.01 ACTIVITY, WALKING, MARCHING AND HIKING 01/25/2016 MAYTE DICKERSON FOOD SUPERVISOR Ot Y99.8 OTHER EXTERNAL CAUSE STATUS 01/27/2016 MAYTE DICKERSON FOOD SUPERVISOR Ot S32.492A OTH FRACTURE OF LEFT ACETABULUM, INIT FO 01/27/2016 MAYTE DICKERSON FOOD SUPERVISOR Ot X58.XXXA EXPOSURE TO OTHER SPECIFIED FACTORS, INI 01/27/2016 MAYTE DICKERSON FOOD SUPERVISOR Ot Y92.[address] [facility] ( PRIVATE 01/27/2016 MAYTE DICKERSON FOOD SUPERVISOR Ot Y93.01 ACTIVITY, WALKING, MARCHING AND HIKING 01/27/2016 MAYTE DICKERSON FOOD SUPERVISOR Ot Y99.8 OTHER EXTERNAL CAUSE STATUS 06/29/2016 WIL CARREON FOOD SUPERVISOR Ot 724.5 BACKACHE NOS 06/29/2016 WIL CARREON FOOD SUPERVISOR Ot 789.01 ABDOMINAL PAIN, RIGHT UPPER QUADRANT 06/29/2016 WIL CARREON FOOD SUPERVISOR Ot 793.6 NOSP (ABN) FINDINGS ON RADIOLOGICAL OT 06/29/2016 WIL CARREON FOOD SUPERVISOR Ot 787.91 DIARRHEA 06/29/2016 WIL CARREON FOOD SUPERVISOR Ot 789.06 ABDOMINAL PAIN, EPIGASTRIC 06/29/2016 JASON SOMERS, ULI Dennis Ot 553.1 UMBILICAL HERNIA 06/29/2016 JASON SOMERS, ULI Dennis Ot 564.00 UNSPEC CONSTIPATION 06/29/2016 RONY SAMANIEGO MD Ot G56.02 CARPAL TUNNEL SYNDROME, LEFT UPPER LIMB 06/29/2016 ADEN SOMERS, RONY Sykes Ot Z01.818 ENCOUNTER FOR OTHER PREPROCEDURAL EXAMIN 06/29/2016 RONY SAMANIEGO MD Ot Z11.2 ENCOUNTER FOR SCREENING FOR OTHER BACTER 07/01/2016 ESPINOZA SOMERS, BRENTON Reyez Ot G44.221 CHRONIC TENSION-TYPE HEADACHE, INTRACTAB 07/16/2016 WIL CARREON FOOD SUPERVISOR Ot 724.5 BACKACHE NOS 07/16/2016 WIL CARREON FOOD SUPERVISOR Ot 789.01 ABDOMINAL PAIN, RIGHT UPPER QUADRANT 07/16/2016 WIL CARREON FOOD SUPERVISOR Ot 793.6 NOSP (ABN) FINDINGS ON RADIOLOGICAL OT 07/16/2016 WIL CARREON FOOD SUPERVISOR Ot 787.91 DIARRHEA 07/16/2016 WIL CARREON FOOD SUPERVISOR Ot 789.06 ABDOMINAL PAIN, EPIGASTRIC 07/16/2016 JASON SOMERS, ULI Dennis Ot 553.1 UMBILICAL HERNIA 07/16/2016 JASON SOMERS, UIL Dennis Ot 564.00 UNSPEC CONSTIPATION 07/16/2016 RONY SAMANIEGO MD Ot G56.02 CARPAL TUNNEL SYNDROME, LEFT UPPER LIMB 07/16/2016 RONY SAMANIEGO MD Ot Z01.818 ENCOUNTER FOR OTHER PREPROCEDURAL EXAMIN 07/16/2016 RONY SAMANIEGO MD Ot Z11.2 ENCOUNTER FOR SCREENING FOR OTHER BACTER 07/16/2016 BRENTON DORAN MD Ot G44.221 CHRONIC TENSION-TYPE HEADACHE, INTRACTAB 07/21/2016 WIL CARREON FOOD SUPERVISOR Ot 724.5 BACKACHE NOS 07/21/2016 WIL CARREON FOOD SUPERVISOR Ot 789.01 ABDOMINAL PAIN, RIGHT UPPER QUADRANT 07/21/2016 WIL CARREON FOOD SUPERVISOR Ot 793.6 NOSP (ABN) FINDINGS ON RADIOLOGICAL OT 07/21/2016 WIL CARREON FOOD SUPERVISOR Ot 787.91 DIARRHEA 07/21/2016 WIL CARREON FOOD SUPERVISOR Ot 789.06 ABDOMINAL PAIN, EPIGASTRIC 07/21/2016 JASON SOMERS, ULI Dennis Ot 553.1 UMBILICAL HERNIA 07/21/2016 JASON SOMERS, ULI Dennis Ot 564.00 UNSPEC CONSTIPATION 07/21/2016 RONY SAMANIEGO MD Ot G56.02 CARPAL TUNNEL SYNDROME, LEFT UPPER LIMB 07/21/2016 RONY SAMANIEGO MD Ot Z01.818 ENCOUNTER FOR OTHER PREPROCEDURAL EXAMIN 07/21/2016 RONY SAMANIEGO MD Ot Z11.2 ENCOUNTER FOR SCREENING FOR OTHER BACTER 07/21/2016 BRENTON DORAN MD Ot G44.221 CHRONIC TENSION-TYPE HEADACHE, INTRACTAB 07/21/2016 RONY REYES MD Ot H93.A9 PULSATILE TINNITUS, UNSPECIFIED EAR 07/21/2016 BRENTON DORAN MD Ot G44.221 CHRONIC TENSION-TYPE HEADACHE, INTRACTAB 07/22/2016 RONY REYES MD Ot H93.A9 PULSATILE TINNITUS, UNSPECIFIED EAR 08/02/2016 BRENTON DORAN MD Ot M54.6 PAIN IN THORACIC SPINE 08/02/2016 BRENTON DORAN MD Ot R31.9 HEMATURIA, UNSPECIFIED 08/02/2016 BRENTON DORAN MD Ot R74.0 NONSPEC ELEV OF LEVELS OF TRANSAMNS LA 08/02/2016 BRENTON DORAN MD Ot M54.6 PAIN IN THORACIC SPINE 08/02/2016 BRENTON DORAN MD Ot R31.9 HEMATURIA, UNSPECIFIED 08/02/2016 BRENTON DORAN MD Ot R74.0 NONSPEC ELEV OF LEVELS OF TRANSAMNS LA 08/02/2016 RONY REYES MD Ot H93.A9 PULSATILE TINNITUS, UNSPECIFIED EAR 08/04/2016 BRENTON DORAN MD Ot M54.6 PAIN IN THORACIC SPINE 08/04/2016 BRENTON DORAN MD Ot R31.9 HEMATURIA, UNSPECIFIED 08/04/2016 BRENTON DORAN MD Ot R74.0 NONSPEC ELEV OF LEVELS OF TRANSAMNS LA 08/04/2016 BRENTON DORAN MD Ot K76.0 FATTY (CHANGE OF) LIVER, NOT ELSEWHERE C 08/04/2016 BRENTON DORAN MD Ot R74.0 NONSPEC ELEV OF LEVELS OF TRANSAMNS LA 08/08/2016 WIL CARREON FOOD SUPERVISOR Ot 724.5 BACKACHE NOS 08/08/2016 WIL CARREON FOOD SUPERVISOR Ot 789.01 ABDOMINAL PAIN, RIGHT UPPER QUADRANT 08/08/2016 WIL CARREON FOOD SUPERVISOR Ot 793.6 NOSP (ABN) FINDINGS ON RADIOLOGICAL OT 08/08/2016 WIL CARREON FOOD SUPERVISOR Ot 787.91 DIARRHEA 08/08/2016 WIL CARREON FOOD SUPERVISOR Ot 789.06 ABDOMINAL PAIN, EPIGASTRIC 08/08/2016 ULI GOMEZ MD Ot 553.1 UMBILICAL HERNIA 08/08/2016 ULI GOMEZ MD Ot 564.00 UNSPEC CONSTIPATION 08/08/2016 RONY SAMANIEGO MD Ot G56.02 CARPAL TUNNEL SYNDROME, LEFT UPPER LIMB 08/08/2016 RONY SAMANIEGO MD Ot Z01.818 ENCOUNTER FOR OTHER PREPROCEDURAL EXAMIN 08/08/2016 RONY SAMANIEGO MD Ot Z11.2 ENCOUNTER FOR SCREENING FOR OTHER BACTER 08/08/2016 BRENTON DORAN MD Ot G44.221 CHRONIC TENSION-TYPE HEADACHE, INTRACTAB 08/08/2016 RONY REYES MD Ot H93.A9 PULSATILE TINNITUS, UNSPECIFIED EAR 08/08/2016 BRENTON DORAN MD Ot K76.0 FATTY (CHANGE OF) LIVER, NOT ELSEWHERE C 08/08/2016 BRENTON DORAN MD Ot R74.0 NONSPEC ELEV OF LEVELS OF TRANSAMNS LA 08/08/2016 BRENTON DORAN MD Ot M54.6 PAIN IN THORACIC SPINE 08/08/2016 BRENTON DORAN MD Ot R31.9 HEMATURIA, UNSPECIFIED 08/08/2016 BRENTON DORAN MD Ot R74.0 NONSPEC ELEV OF LEVELS OF TRANSAMNS LA 08/23/2016 BRENTON DORAN MD Ot M54.6 PAIN IN THORACIC SPINE 08/23/2016 BRENTON DORAN MD Ot R31.9 HEMATURIA, UNSPECIFIED 08/23/2016 BRENTON DORAN MD Ot R74.0 NONSPEC ELEV OF LEVELS OF TRANSAMNS LA 08/24/2016 BRENTON DORAN MD Ot K76.0 FATTY (CHANGE OF) LIVER, NOT ELSEWHERE C 08/24/2016 BRENTON DORAN MD Ot R74.0 NONSPEC ELEV OF LEVELS OF TRANSAMNS LA 08/26/2016 RONY REYES MD Ot H93.A9 PULSATILE TINNITUS, UNSPECIFIED EAR 08/26/2016 RONY REYES MD Ot 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 09/09/2016 ARTHUR LOVING APRN Ot G47.33 OBSTRUCTIVE SLEEP APNEA (ADULT) ( PEDIATR 09/10/2016 ARTHUR LOVING FOOD SUPERVISOR Ot G47.33 OBSTRUCTIVE SLEEP APNEA (ADULT) ( PEDIATR 09/29/2016 JENNIFER BRIDGES Ot E11.9 TYPE 2 DIABETES MELLITUS WITHOUT COMPLIC 09/29/2016 JENNIFER BRIDGES Ot K59.00 CONSTIPATION, UNSPECIFIED 09/29/2016 JENNIFER BRIDGES Ot 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 09/29/2016 JENNIFER BRIDGES Ot Z79.899 OTHER [facility] (CURRENT) DRUG THERAPY 09/30/2016 JENNIFER BRIDGES Ot E11.9 TYPE 2 DIABETES MELLITUS WITHOUT COMPLIC 09/30/2016 JENNIFER BRIDGES Ot K59.00 CONSTIPATION, UNSPECIFIED 09/30/2016 JENNIFER BRIDGES Ot Z79.84 [facility] (CURRENT) USE OF ORAL HYPOGLYC 09/30/2016 NELSON CR JENNIFER L Ot 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 10/01/2016 JENNIFER BRIDGES Ot E11.9 TYPE 2 DIABETES MELLITUS WITHOUT COMPLIC 10/01/2016 JENNIFER BRIDGES Ot K59.00 CONSTIPATION, UNSPECIFIED 10/01/2016 JENNIFER BRIDGES Ot Z79.84 [facility] (CURRENT) USE OF ORAL HYPOGLYC 10/01/2016 JENNIFER BRIDGES Ot 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 11/06/2016 ARTHUR LOVING FOOD SUPERVISOR Ot G47.30 SLEEP APNEA, UNSPECIFIED 11/08/2016 ARTHUR LOVING FOOD SUPERVISOR Ot G47.30 SLEEP APNEA, UNSPECIFIED 12/02/2016 HUMBERTO CHRISTIAN MD Ot E11.9 TYPE 2 DIABETES MELLITUS WITHOUT COMPLIC 12/02/2016 HUMBERTO CHRISTIAN MD Ot E53.8 DEFICIENCY OF OTHER SPECIFIED B GROUP 12/02/2016 HUMBERTO CHRISTIAN MD Ot E78.5 HYPERLIPIDEMIA, UNSPECIFIED 12/02/2016 HUMBERTO CHRISTIAN MD Ot I10 ESSENTIAL (PRIMARY) HYPERTENSION 12/02/2016 HUMBERTO CHRISTIAN MD Ot 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 12/02/2016 HUMBERTO CHRISTIAN MD Ot E11.9 TYPE 2 DIABETES MELLITUS WITHOUT COMPLIC 12/02/2016 HUMBERTO CHRISTIAN MD Ot E53.8 DEFICIENCY OF OTHER SPECIFIED B GROUP 12/02/2016 HUMBERTO CHRISTIAN MD Ot E78.5 HYPERLIPIDEMIA, UNSPECIFIED 12/02/2016 HUMBERTO CHRISTIAN MD Ot I10 ESSENTIAL (PRIMARY) HYPERTENSION 12/02/2016 HUMBERTO CHRISTIAN MD Ot 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 12/08/2016 WIL CARREON FOOD SUPERVISOR Ot 724.5 BACKACHE NOS 12/08/2016 WIL CARREON FOOD SUPERVISOR Ot 789.01 ABDOMINAL PAIN, RIGHT UPPER QUADRANT 12/08/2016 WIL CARREON FOOD SUPERVISOR Ot 793.6 NOSP (ABN) FINDINGS ON RADIOLOGICAL OT 12/08/2016 WIL CARREON FOOD SUPERVISOR Ot 787.91 DIARRHEA 12/08/2016 WIL CARREON FOOD SUPERVISOR Ot 789.06 ABDOMINAL PAIN, EPIGASTRIC 12/08/2016 ULI GOMEZ MD Ot 553.1 UMBILICAL HERNIA 12/08/2016 ULI GOMEZ MD Ot 564.00 UNSPEC CONSTIPATION 12/08/2016 RONY SAMANIEGO MD Ot G56.02 CARPAL TUNNEL SYNDROME, LEFT UPPER LIMB 12/08/2016 RONY SAMANIEGO MD Ot Z01.818 ENCOUNTER FOR OTHER PREPROCEDURAL EXAMIN 12/08/2016 RONY SAMANIEGO MD Ot Z11.2 ENCOUNTER FOR SCREENING FOR OTHER BACTER 12/08/2016 BRENTON DORAN MD Ot G44.221 CHRONIC TENSION-TYPE HEADACHE, INTRACTAB 12/08/2016 RONY REYES MD Ot H93.A9 PULSATILE TINNITUS, UNSPECIFIED EAR 12/08/2016 RONY REYES MD Ot 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 12/08/2016 BRENTON DORAN MD Ot K76.0 FATTY (CHANGE OF) LIVER, NOT ELSEWHERE C 12/08/2016 BRENTON DORAN MD Ot R74.0 NONSPEC ELEV OF LEVELS OF TRANSAMNS LA 12/08/2016 BRENTON DORAN MD Ot M54.6 PAIN IN THORACIC SPINE 12/08/2016 BRENTON DORAN MD Ot R31.9 HEMATURIA, UNSPECIFIED 12/08/2016 BRENTON DORAN MD Ot R74.0 NONSPEC ELEV OF LEVELS OF TRANSAMNS LA 12/08/2016 HUMBERTO CHRISTIAN MD Ot E11.9 TYPE 2 DIABETES MELLITUS WITHOUT COMPLIC 12/08/2016 HUMBERTO CHRISTIAN MD Ot E53.8 DEFICIENCY OF OTHER SPECIFIED B GROUP 12/08/2016 HUMBERTO CHRISTIAN MD Ot E78.5 HYPERLIPIDEMIA, UNSPECIFIED 12/08/2016 HUMBERTO CHRISTIAN MD Ot I10 ESSENTIAL (PRIMARY) HYPERTENSION 12/08/2016 HUMBERTO CHRISTIAN MD Ot 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 12/08/2016 BRENTON DORAN MD Ot K76.0 FATTY (CHANGE OF) LIVER, NOT ELSEWHERE C 12/08/2016 BRENTON DORAN MD Ot R74.0 NONSPEC ELEV OF LEVELS OF TRANSAMNS LA 12/08/2016 BRENTON DORAN MD Ot M54.6 PAIN IN THORACIC SPINE 12/08/2016 BRENTON DORAN MD Ot R31.9 HEMATURIA, UNSPECIFIED 12/08/2016 BRENTON DORAN MD Ot R74.0 NONSPEC ELEV OF LEVELS OF TRANSAMNS LA 12/08/2016 RONY REYES MD Ot H93.A9 PULSATILE TINNITUS, UNSPECIFIED EAR 12/08/2016 RONY REYES MD Ot 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 12/08/2016 BRENTON DORAN MD Ot G44.221 CHRONIC TENSION-TYPE HEADACHE, INTRACTAB 12/12/2016 TURNER RUIZ MD Ot E11.9 TYPE 2 DIABETES MELLITUS WITHOUT COMPLIC 12/12/2016 TURNER RUIZ MD Ot I10 ESSENTIAL (PRIMARY) HYPERTENSION 12/12/2016 TURNER RUIZ MD Ot S59.901A UNSPECIFIED INJURY OF RIGHT ELBOW, INITI 12/12/2016 TURNER RUIZ MD Ot S69.91XA UNSP INJURY OF RIGHT WRIST, HAND AND FIN 12/12/2016 TURNER RUIZ MD Ot S89.91XA UNSPECIFIED INJURY OF RIGHT LOWER LEG, I 12/12/2016 TURNER RUIZ MD Ot W19.XXXA UNSPECIFIED FALL, INITIAL ENCOUNTER 12/12/2016 TURNER RUIZ MD Ot Y92.512 SUPERMARKET, STORE OR MARKET PLACE 12/12/2016 TURNER RIUZ MD Ot Y99.8 OTHER EXTERNAL CAUSE STATUS 12/12/2016 TURNER RUIZ MD Ot Z79.84 [facility] (CURRENT) USE OF ORAL HYPOGLYC 12/12/2016 TURNER RUIZ MD Ot Z79.899 OTHER [facility] (CURRENT) DRUG THERAPY 12/12/2016 JOSEPH MD, TURNER S Ot Z96.651 PRESENCE OF RIGHT ARTIFICIAL KNEE JOINT 12/14/2016 JOSEPH SOMERS, TURNER Kimball Ot E11.9 TYPE 2 DIABETES MELLITUS WITHOUT COMPLIC 12/14/2016 JOSEPH SOMERS, TURNER Kimball Ot I10 ESSENTIAL (PRIMARY) HYPERTENSION 12/14/2016 JOSEPH SOMERS, TURNER Kimball Ot S59.901A UNSPECIFIED INJURY OF RIGHT ELBOW, INITI 12/14/2016 JOSEPH SOMERS, TURNER Kimball Ot S69.91XA UNSP INJURY OF RIGHT WRIST, HAND AND FIN 12/14/2016 TURNER RUIZ MD Ot S89.91XA UNSPECIFIED INJURY OF RIGHT LOWER LEG, I 12/14/2016 JOSEPH SOMERS, TURNER Kimball Ot W19.XXXA UNSPECIFIED FALL, INITIAL ENCOUNTER 12/14/2016 TURNER RUIZ MD Ot Y92.512 SUPERMARKET, STORE OR MARKET PLACE 12/14/2016 TURNER RUIZ MD Ot Y99.8 OTHER EXTERNAL CAUSE STATUS 12/14/2016 TURNER RUIZ MD Ot 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 12/14/2016 TURNER RUIZ MD Ot Z79.899 OTHER [facility] (CURRENT) DRUG THERAPY 12/14/2016 JOSEPH SOMERS, TURNER Kimball Ot Z96.651 PRESENCE OF RIGHT ARTIFICIAL KNEE JOINT 12/18/2016 JOSEPH SOMERS, TURNER Kimball Ot E11.9 TYPE 2 DIABETES MELLITUS WITHOUT COMPLIC 12/18/2016 JOSEPH SOMERS, TURNER Kimball Ot I10 ESSENTIAL (PRIMARY) HYPERTENSION 12/18/2016 TURNER RUIZ MD Ot S59.901A UNSPECIFIED INJURY OF RIGHT ELBOW, INITI 12/18/2016 TURNER RUIZ MD Ot S69.91XA UNSP INJURY OF RIGHT WRIST, HAND AND FIN 12/18/2016 TURNER RUIZ MD Ot S89.91XA UNSPECIFIED INJURY OF RIGHT LOWER LEG, I 12/18/2016 TURNER RUIZ MD Ot W19.XXXA UNSPECIFIED FALL, INITIAL ENCOUNTER 12/18/2016 TURNER RUIZ MD Ot Y92.512 SUPERMARKET, STORE OR MARKET PLACE 12/18/2016 TURNER RUIZ MD Ot Y99.8 OTHER EXTERNAL CAUSE STATUS 12/18/2016 TURNER RUIZ MD Ot Z79.84 [facility] (CURRENT) USE OF ORAL HYPOGLYC 12/18/2016 TURNER RUIZ MD Ot Z79.899 OTHER [facility] (CURRENT) DRUG THERAPY 12/18/2016 TURNER RUIZ MD Ot Z96.651 PRESENCE OF RIGHT ARTIFICIAL KNEE JOINT 12/22/2016 HUMBERTO CHRISTIAN MD Ot E11.9 TYPE 2 DIABETES MELLITUS WITHOUT COMPLIC 12/22/2016 HUMBERTO CHRISTIAN MD Ot E53.8 DEFICIENCY OF OTHER SPECIFIED B GROUP 12/22/2016 HUMBERTO CHRISTIAN MD Ot E78.5 HYPERLIPIDEMIA, UNSPECIFIED 12/22/2016 HUMBERTO CHRISTIAN MD Ot I10 ESSENTIAL (PRIMARY) HYPERTENSION 12/22/2016 HUMBERTO CHRISTIAN MD Ot 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 Procedures Code Description [place] [address] ROUTINE VENIPUNCTURE 08/24/2013 73964 CBC 08/24/2013 2287413 GFR CALC (RESULT ONLY) 08/24/2013 94146 CMP 08/24/2013 29532 LIPID PANEL 08/24 97499 TSH 08/24/2013 42041 OCCULT BLOOD (FECES) 09/04/2013 86294 ROUTINE VENIPUNCTURE 12/06/2013 85649 CBC 12/07/2013 83518 A1C (IN-HOUSE) 47828 MICRO ALBUMIN-IN HOUSE 01/17/[address] ABDOMEN W/ AND W/O CONTRAST 01/30/2014 10361 CMP 01/30/2014 66508 LIPASE 2013 63857 CBC 01/30/2014 79658 H PYLORI (RML) 06092 ROUTINE VENIPUNCTURE 03/19/2014 60759 CBC 03/19/2014 35664 XRAY KNEE RIGHT 1 OR 2 VIEWS 05/02/2014 46136 ROUTINE VENIPUNCTURE 05/22/2014 35376 A1C (IN-HOUSE) 47816 UA LONG DIP 05/22 26862 CBC 05/22/2014 19050 MICROALBUMIN 00176 TSH 05/22/2014 08655 ROUTINE VENIPUNCTURE 06/18/2014 07029 CBC 06/18/2014 35005 LIPASE 2013 57608 PSYCH DIAGNOSTIC EVALUATION 06/28/2014 2000F BLOOD PRESSURE CHECK 07/03/2014 46887 PSYTX PT&/FAMILY 45 MINUTES 08/15/2014 90787 ROUTINE VENIPUNCTURE 08/22/2014 17591 A1C (IN-HOUSE) 52078 CBC 08/22/2014 1982638 GFR CALC (RESULT ONLY) 08/22/2014 38390 CMP 08/22/2014 82336 LIPASE 2013 89367 CULTURE STOOL 82467 CLOSTRIDIUM (C-DIFF) 08/26/[address] ABDOMEN & PELVIS W/ & W/O CONTRAST 08/30/2014 Results Test Result Range Comprehensive metabolic panel - 07/30/16 13:07 Serum or plasma sodium measurement (moles/volume) 140 mmol/ L 135-145 Serum or plasma potassium measurement (moles/volume) 4.2 mmol/L 3.6-5.0 Serum or plasma chloride measurement (moles/volume) 107 mmol /L 98-107 Carbon dioxide 25 mmol/L 21-32 Serum or plasma anion gap determination (moles/volume) 8 mmol/L 5-14 Serum or plasma urea nitrogen measurement (mass/volume) 10 mg/dL 7-18 Serum or plasma creatinine measurement (mass/volume) 0.75 mg /dL 0.60-1.30 Serum or plasma urea nitrogen/creatinine mass ratio 13 NRG Serum or plasma creatinine measurement with calculation of estimated glomerular filtration rate > NRG Serum or plasma glucose measurement (mass/volume) 275 mg/dL 70-105 Serum or plasma calcium measurement (mass/volume) 9.4 mg/dL 8.5-10.1 Serum or plasma total bilirubin measurement (mass/volume) 0.5 mg/dL 0.1-1.0 Serum or plasma alkaline phosphatase measurement (enzymatic activity/volume) 85 U/L 40-136 Serum or plasma aspartate aminotransferase measurement (enzymatic activity/ volume) 80 U/L 5-34 Serum or plasma alanine aminotransferase measurement (enzymatic activity/volume ) 54 U/L 0-55 Serum or plasma protein measurement (mass/volume) 6.6 g/dL 6.4-8.2 Serum or plasma albumin measurement (mass/volume) 3.8 g/dL 3.2-4.5 Acute hepatitis panel - 07/30/16 13:07 Confirmatory quantitative serum or plasma hepatitis B virus surface antigen measurement Non-Reactive Non-Reactive Hepatitis A virus IgM antibody assay Non-Reactive Non-Reactive Hepatitis B virus core IgM antibody assay Non-Reactive Non-Reactive Serum hepatitis C virus antibody detection Non-Reactive Non-Reactive Automated blood complete blood count (hemogram) panel - 12/01/16 17:17 Blood leukocytes automated count (number/volume) 6.7 10*3/ uL 4.3-11.0 Blood erythrocytes automated count (number/volume) 4.23 10*6 /uL 4.35-5.85 Venous blood hemoglobin measurement (mass/volume) 13.0 g/dL 11.5-16.0 Blood hematocrit (volume fraction) 39 % 35-52 Automated erythrocyte mean corpuscular volume 92 [foz_us] 80-99 Automated erythrocyte mean corpuscular hemoglobin (mass per erythrocyte) 31 pg 25-34 Automated erythrocyte mean corpuscular hemoglobin concentration measurement ( mass/volume) 33 g/dL 32-36 Automated erythrocyte distribution width ratio 12.8 % 10.0-14.5 Automated blood platelet count (count/volume) 182 10*3/uL 130-400 Automated blood platelet mean volume measurement 9.2 [foz_us ] 7.4-10.4 Comprehensive metabolic panel - 12/01/16 17:17 Serum or plasma sodium measurement (moles/volume) 139 mmol/ L 135-145 Serum or plasma potassium measurement (moles/volume) 4.0 mmol/L 3.6-5.0 Serum or plasma chloride measurement (moles/volume) 109 mmol /L 98-107 Carbon dioxide 21 mmol/L 21-32 Serum or plasma anion gap determination (moles/volume) 9 mmol/L 5-14 Serum or plasma urea nitrogen measurement (mass/volume) 15 mg/dL 7-18 Serum or plasma creatinine measurement (mass/volume) 0.75 mg /dL 0.60-1.30 Serum or plasma urea nitrogen/creatinine mass ratio 20 NRG Serum or plasma creatinine measurement with calculation of estimated glomerular filtration rate > NRG Serum or plasma glucose measurement (mass/volume) 181 mg/dL 70-105 Serum or plasma calcium measurement (mass/volume) 9.5 mg/dL 8.5-10.1 Serum or plasma total bilirubin measurement (mass/volume) 0.6 mg/dL 0.1-1.0 Serum or plasma alkaline phosphatase measurement (enzymatic activity/volume) 71 U/L 40-136 Serum or plasma aspartate aminotransferase measurement (enzymatic activity/ volume) 57 U/L 5-34 Serum or plasma alanine aminotransferase measurement (enzymatic activity/volume ) 42 U/L 0-55 Serum or plasma protein measurement (mass/volume) 6.6 g/dL 6.4-8.2 Serum or plasma albumin measurement (mass/volume) 3.9 g/dL 3.2-4.5 Serum hepatitis B virus core antibody assay (units/volume) - 12/01/16 17:17 Hepatitis B core antibody measurement <0.07 <=0.50 Serum hepatitis B virus core antibody detection Non- Reactive NRG Body fluid hepatitis B virus surface antigen detection - 12/01/16 17:17 Confirmatory quantitative serum or plasma hepatitis B virus surface antigen measurement Non-Reactive Non-Reactive Serum hepatitis B virus surface antibody assay (units/volume) - 12/01/16 17:17 Serum hepatitis B virus surface antibody assay (units/volume) < % >=10.00 Serum iron and total iron binding capacity panel - 12/01/16 17:17 Serum or plasma iron measurement (mass/volume) 77 % 35-180 Total iron binding capacity and transferrin saturation measurement 24 % 15-50 Iron binding capacity [mass/volume] in serum or plasma 325 % 280-380 UIBC (unsaturated iron binding capacity) 248 % 55-450 Serum or plasma ferritin measurement (mass/volume) 86.0 % 15.0-150.0 Cyanocobalamin measurement - 12/01/16 17:17 Vitamin B12 499 pg/mL 200-1000 Encounters ACCT No. Visit Date/Time Discharge Status Pt. Type Provider Facility Loc./Unit Complaint [id number] 11/26/2014 08:32:00 11/26/2014 23: 59:59 CLS Outpatient WIL CARREON APRN [id number] 09/10/2014 13:42:00 09/10/2014 23: 59:59 CLS Outpatient WIL CARREON APRN [id number] 08/26/2014 08:15:00 08/26/2014 23: 59:59 CLS Outpatient WIL CARREON APRN [id number] 08/15/2014 07:58:00 08/15/2014 23: 59:59 CLS Outpatient PAOLO OCAMPO PSYD [id number] 07/03/2014 14:25:00 07/03/2014 23: 59:59 CLS Outpatient VELMA FOOD SUPERVISOR, WIL R [id number] 06/28/2014 13:44:00 06/28/2014 23: 59:59 CLS Outpatient PAOLO OCAMPO PSYD [id number] 06/18/2014 10:47:00 06/18/2014 23: 59:59 CLS Outpatient VELMA FOOD SUPERVISOR, WIL R [id number] 05/22/2014 11:18:00 05/22/2014 23: 59:59 CLS Outpatient VELMA FOOD SUPERVISOR, WIL R [id number] 05/02/2014 12:46:00 05/02/2014 23: 59:59 CLS Outpatient GUMARO KIM DO [id number] 03/19/2014 14:16:00 03/19/2014 23: 59:59 CLS Outpatient VELMA FOOD SUPERVISOR, WIL R [id number] 03/18/2014 00:00:00 03/18/2014 23: 59:59 CLS Outpatient BUENROSTROCARA RUFF DDS [id number] 01/29/2014 14:31:00 01/29/2014 23: 59:59 CLS Outpatient VELMA SCHNEIDERN, WIL R [id number] 01/17/2014 15:12:00 01/17/2014 23: 59:59 CLS Outpatient VELMA FOOD SUPERVISOR, WIL R [id number] 12/06/2013 16:56:00 12/06/2013 23: 59:59 CLS Outpatient VELMA SCHNEIDERN, WIL R [id number] 09/04/2013 11:13:00 09/04/2013 23: 59:59 CLS Outpatient VELMA SCHNEIDERN, WIL R [id number] 08/24/2013 09:58:00 08/24/2013 23: 59:59 CLS Outpatient VELMA SCHNEIDERN, WIL R [id number] 08/08/2013 12:20:00 08/08/2013 23: 59:59 CLS Outpatient ALEXANDREA FOOD SUPERVISOR, STEFANIE Cornejo [id number] 07/25/2013 15:26:00 07/25/2013 23: 59:59 CLS Outpatient GUMARO KIM DO
--- OUTSIDE RECORDS SUMMARY | 2017-04-05 09:05 | XMS REPORT ---
Author Author BRENTON DORAN [facility] eClinicalWorks Address Unknown Phone Unavailable Care Team Providers Care Client Relations Associate Name Role Phone BRENTON DORAN CP Unavailable Allergies No Known Allergies Problems Problem Type Condition Code Onset Dates Condition Status Problem Essential hypertension I10 Active Problem Right upper quadrant pain R10.11 Active Problem Hyperlipidemia E78.5 Active Problem Obstructive sleep apnea on CPAP G47.33 Active Problem Anxiety F41.9 Active Problem Type 2 diabetes mellitus without complication E11.9 Active Problem Chronic diarrhea K52.9 Active Problem Iron deficiency anemia due to chronic blood loss D50.0 Active Problem Vitamin B12 deficiency E53.8 Active Problem Major depressive disorder, recurrent episode, moderate F33.1 Active Problem Acquired hypothyroidism E03.9 Active Medications Medication Code System Code Instructions Start Date End Date Status Dosage Sertraline HCl [facility] [address]-74 100 MG Orally Once a day December 17, 2015 1 and one half tablet Lisinopril [facility] [address]-77 30 MG Orally Once a day December 17, 2015 1 tablet Results No Known Results Summary Purpose eClinicalWorks Submission
--- OUTSIDE RECORDS SUMMARY | 2017-04-05 09:06 | XMS REPORT ---
Author Author BRENTON DORAN [facility] eClinicalWorks Address Unknown Phone Unavailable Care Team Providers Care Visual Basic Developer Name Role Phone BRENTON DORAN CP Unavailable Allergies No Known Allergies Problems Problem Type Condition Code Onset Dates Condition Status Problem Essential hypertension I10 Active Problem Right upper quadrant pain R10.11 Active Problem Hyperlipidemia E78.5 Active Assessment Vitamin B12 deficiency E53.8 Active Problem Anxiety F41.9 Active Problem Type [...] System Code Date THER/PROPH/DIAG INJ, SC/IM CPT-4 42412 Oct 22, 2015 B12, VITAMIN (UP TO 1000 MCG) CPT-4 J3420 Oct 22, 2015 Results No Known Results Summary Purpose eClinicalWorks Submission
--- OUTSIDE RECORDS SUMMARY | 2017-04-05 09:06 | XMS REPORT ---
Author Author BRENTON DORAN Organization [facility] Address [address] [place] [address] Care Team Providers Care Revenue Settlements Administrator Name Role Phone BRENTON DORAN Unavailable PROBLEMS Type Condition ICD9-CM Code [id number] Code Onset Dates Condition Status SNOMED Code Problem Right upper quadrant pain R10.11 Active 95696792 Problem Iron deficiency anemia due to chronic blood loss D50.0 Active 62463323 Problem Vitamin B12 deficiency E53.8 Active 085679293 Problem Chronic tension-type headache, intractable G44.221 Active 014179161 Problem Chronic diarrhea K52.9 Active 837763446 Problem Major depressive disorder, recurrent episode, moderate F33.1 Active 662819686 Problem Acquired hypothyroidism E03.9 Active 168531857 Problem Anxiety F41.9 Active 12782486 Problem Type 2 diabetes mellitus without complication E11.9 Active 60391604 Problem Sensorineural hearing loss of right ear H90.41 Active 94461982 Problem Obstructive sleep apnea on CPAP G47.33 Active 56479804 Problem Essential hypertension I10 Active 82669395 Problem Fatty liver K76.0 Active 780236977 Problem Hyperlipidemia E78.5 Active 90005647 ALLERGIES Unknown Allergies SOCIAL HISTORY No smoking Hx information available PLAN OF CARE VITAL SIGNS MEDICATIONS Medication Instructions Dosage Frequency Start Date End Date Duration Status Zoloft 100 MG Orally twice a day 1 tablet 12h Active RESULTS No Results PROCEDURES No Known procedures IMMUNIZATIONS No Known Immunizations
--- OUTSIDE RECORDS SUMMARY | 2017-04-05 09:06 | XMS REPORT ---
Author Author BRENTON DORAN [facility] eClinicalWorks Address Unknown Phone Unavailable Care Team Providers Care Nuisance Wildlife Control Operator Name Role Phone BRENTON DORAN CP Unavailable [...] Problem Iron deficiency anemia 280.9 Active Medications No Known Medications Results No Known Results Summary Purpose eClinicalWorks Submission
--- OUTSIDE RECORDS SUMMARY | 2017-04-05 09:06 | XMS REPORT ---
Author Author BRENTON DORAN [facility] eClinicalWorks Address Unknown Phone Unavailable Care Team Providers Care Receiver Dispatcher Name Role Phone BRENTON DORAN CP Unavailable [...] disorder, recurrent episode, moderate F33.1 Active Assessment Elevated ALT measurement R74.0 Active Assessment Major depressive disorder, recurrent episode, moderate F33.1 Active Problem Fatty liver K76.0 Active Problem Sensorineural hearing loss of right ear H90.41 Active Assessment Acute right-sided thoracic back pain M54.6 Active Problem Obstructive sleep apnea on CPAP G47.33 Active Assessment Hematuria R31.9 Active Problem Essential hypertension I10 Active Medications Medication Code System Code Instructions Start Date End Date Status Dosage Wellbutrin SR [facility] [address]-35 150 MG Orally Twice a day Jul 30, 2016 1 tablet Lisinopril [facility] [address]-18 40 MG Orally Once a day 1 tablet Aleve [facility] [address]-69 220 MG Orally every 12 hrs 1 tablet as needed Cyanocobalamin [facility] [address]-66 1000 MCG/ML Injection 1 Ferrous Sulfate [facility] [address]-30 325 (65 Fe) MG Orally Once a day December 1 tablet MetFORMIN HCl ER [facility] 37041792537 750 MG Orally 2 times a day 1 tablet Zetia [facility] [address]-80 10 mg Orally Once a day Jul 30, 2016 1 tablet Fiber ND 0 - Orally not defined Amitriptyline HCl [facility] [address]-35 10 mg Orally Once a day, can increase by 10 mg daily each week if needed Jun 25, 2016 1 tablet Levothyroxine Sodium [facility] 06832930576 100 MCG Orally Once a day 1 tablet on an empty stomach in the morning Procedures Procedure Coding System Code Date LAB NOT BILLED BY [facility] CPT-4 NOBLL Jul 30, 2016 FQ VISIT ESTABLISHED PATIENT CPT-4 G0467 Jul 30, 2016 URINALYSIS, AUTO, W/O SCOPE CPT-4 54578 Jul 30, 2016 Office Visit, Est Pt., Level 3 CPT-4 56299 Jul 30, 2016 Vital Signs Date/Time: Jul 30, 2016 Cardiac Monitoring Heart Rate 80 bpm Weight 316.2 lbs Height 62 in BMI 57.83 Index Blood Pressure Diastolic 87 mmHg Blood Pressure Systolic 161 mmHg Results Name Result Date Reference Range Unit Abnormality Flag CT Scan : Abdomen & Pelvis w/o Contrast UA LONG DIP (IN HOUSE) ----LORENZO Negative 20160730 ----NIT Negative 20160730 ----SG 1.025 20160730 ----KET Negative 20160730 ----JUNIE Negative 20160730 ----GLU Trace 20160730 ----Odor None 20160730 ----pH 5.5 20160730 ----BLO Negative 20160730 ----URO 0.2 20160730 ----Protein Negtive 20160730 ----Lot # [id number] ----Exp date 20160730 ----Clarity Clear 20160730 ----Color Yellow 20160730 CMP Summary Purpose eClinicalWorks Submission
--- OUTSIDE RECORDS SUMMARY | 2017-04-05 09:06 | XMS REPORT ---
Author Author BRENTON DORAN eClinicalWorks Address Unknown Phone Unavailable Care Team Providers Care Education Program Coordinator Name Role Phone BRENTON DORAN CP Unavailable Allergies No Known Allergies Problems Problem Type Condition Code Onset Dates Condition Status Problem Essential hypertension I10 Active Problem Right upper quadrant pain R10.11 Active Problem Hyperlipidemia E78.5 Active Assessment Vitamin B12 deficiency E53.8 Active Problem Obstructive sleep apnea on CPAP [...] System Code Date THER/PROPH/DIAG INJ, SC/IM CPT-4 48955 May 25, 2016 B12, VITAMIN (UP TO 1000 MCG) CPT-4 J3420 May 25, 2016 Results No Known Results Summary Purpose eClinicalWorks Submission
--- OUTSIDE RECORDS SUMMARY | 2017-04-05 09:06 | XMS REPORT ---
Author Author BRENTON DORAN [facility] eClinicalWorks Address Unknown Phone Unavailable Care Team Providers Care Systems Project Manager Name Role Phone BRENTON DORAN CP Unavailable [...] sleep apnea on CPAP G47.33 Active Assessment Elevated ALT measurement R74.0 Active Problem Essential hypertension I10 Active Medications No Known Medications Results No Known Results Summary Purpose eClinicalWorks Submission
--- OUTSIDE RECORDS SUMMARY | 2017-04-05 09:06 | XMS REPORT ---
Author Author BRENTON DORAN [facility] eClinicalWorks Address Unknown Phone Unavailable Care Team Providers Care Hide Selector Name Role Phone BRENTON ODRAN CP Unavailable Allergies No Known Allergies Problems [...] Assessment Elevated ALT measurement R74.0 Active Problem Sensorineural hearing loss of right ear H90.41 Active Problem Obstructive sleep apnea on CPAP G47.33 Active Problem Essential hypertension I10 Active Medications No Known Medications Results No Known Results Summary Purpose eClinicalWorks Submission
--- OUTSIDE RECORDS SUMMARY | 2017-04-05 09:06 | XMS REPORT ---
Author Author BRENTON DORAN [facility] eClinicalWorks Address Unknown Phone Unavailable Care Team Providers Care Green Chain Offbearer Name Role Phone BRENTON DORAN CP Unavailable [...] hypothyroidism E03.9 Active Medications No Known Medications Results No Known Results Summary Purpose eClinicalWorks Submission
--- OUTSIDE RECORDS SUMMARY | 2017-04-05 09:06 | XMS REPORT ---
Author EDISON Gentile [facility] eClinicalWorks Address Unknown Phone Unavailable Care Team Providers Care Laboratory Miller Name Role Phone EDISON RODRIGUEZ CP Unavailable Allergies, Adverse Reactions, Alerts Substance [...] R10.11 Active Problem Hyperlipidemia E78.5 Active Assessment Headache R51 Active Problem Anxiety F41.9 Active Problem Type [...] Date End Date Status Dosage Sertraline HCl [facility] 41750404086 100 MG TAKE ONE AND ONE-HALF TABLETS BY MOUTH DAILY MetFORMIN HCl ER [facility] 77660653657 750 MG Orally 2 times a day 1 tablet Levothyroxine Sodium [facility] 94972582058 100 MCG TAKE ONE TABLET BY MOUTH DAILY Mobic [facility] [address]-57 15 mg Aug 22, 2014 take 1 tablet (15 mg) by oral route once daily Lisinopril [facility] [address]-33 20 MG Orally Once a day Sep 17, 2015 1 tablet Procedures Procedure Coding System Code Date Office Visit, Est Pt., Level 3 CPT-4 63613 Oct 18, 2015 TORADOL (IM) 15 MG/ML (UP TO 15 MG) CPT-4 J1885 Oct 18, 2015 [facility] VISIT ESTABLISHED PATIENT CPT-4 G0467 Oct 18, 2015 THER/PROPH/DIAG INJ, SC/IM CPT-4 28475 Oct 18, 2015 Vital Signs Date/Time: Oct 18, 2015 Temperature 97.7 F Weight 275.2 lbs Height 62 in BMI 50.33 Index Blood Pressure Diastolic 72 mmHg Blood Pressure Systolic 142 mmHg Cardiac Monitoring Heart Rate 88 bpm Results No Known Results Summary Purpose eClinicalWorks Submission
--- OUTSIDE RECORDS SUMMARY | 2017-04-05 09:07 | XMS REPORT ---
Author Author BRENTON DORAN eClinicalWorks Address Unknown Phone Unavailable Care Team Providers Care Roundhouse Worker Name Role Phone BRENTON DORAN CP Unavailable Allergies No Known Allergies Problems Problem Type Condition Code Onset Dates Condition Status Problem Essential hypertension I10 Active Problem Right upper quadrant pain R10.11 Active Problem Hyperlipidemia E78.5 Active Assessment Dysuria R30.0 Active Problem Obstructive sleep apnea on CPAP [...] System Code Date LAB NOT BILLED BY [facility] CPT-4 NOBLL February 04, 2016 Results No Known Results Summary Purpose SynergosinicalWorks Submission
--- OUTSIDE RECORDS SUMMARY | 2017-04-05 09:07 | XMS REPORT ---
Author Author ESPINOZA BRENTON Organization [facility] Address [address] [place] [address] Care Team Providers Care Sand Hauler Name Role Phone ESPINOZA, BRENTON Unavailable PROBLEMS Type Condition ICD9-CM Code AIN96-KP Code Onset Dates Condition Status SNOMED Code Problem Right upper quadrant pain R10.11 Active 08388953 Problem Iron deficiency anemia due to chronic blood loss D50.0 Active 86035477 Problem Vitamin B12 deficiency E53.8 Active 941993776 Problem Chronic tension-type headache, intractable G44.221 Active 548302983 Problem Chronic diarrhea K52.9 Active 705974230 Problem Major depressive disorder, recurrent episode, moderate F33.1 Active 455064260 Problem Acquired hypothyroidism E03.9 Active 642888131 Problem Anxiety F41.9 Active 85208856 Problem Type 2 diabetes mellitus without complication E11.9 Active 59302764 Assessment Pulsatile tinnitus, bilateral H93.13 Jun, Active 764390766 Problem Sensorineural hearing loss of right ear H90.41 Active 96010516 Problem Obstructive sleep apnea on CPAP G47.33 Active 23938164 Assessment Type 2 diabetes mellitus without complication E11.9 Jun, Active 930131594 Problem Essential hypertension I10 Active 11709937 Problem Fatty liver K76.0 Active 322472860 Problem Hyperlipidemia E78.5 Active 00774962 ALLERGIES Substance Reaction Event Type Date Status Penicillin V Potassium Unknown Drug Allergy Jun, Active Niacin Unknown Drug Allergy Jun, Active Morphine Sulfate Unknown Drug Allergy Jun, Active Lipitor abdominal pain Drug Allergy Jun, Active Dilaudid Unknown Drug Allergy Jun, Active Bactrim Unknown Drug Allergy Jun, Active Amoxicillin Unknown Drug Allergy Jun, Active Adhesive Unknown Non Drug Allergy Jun, Active Sulfamethoxazole-Trimethoprim Unknown Drug Allergy Jun, Active Tetanus&diphtheria Toxoid Unknown Non Drug Allergy Jun, Active Influenza Virus Vacc,specific Got flu and was told to never get the vaccine again Non Drug Allergy Jun, Active SOCIAL HISTORY No smoking Hx information available PLAN OF CARE Activity Details Future/Pending Procedure SLEEP STUDY (HOSPITAL) 3 Months,Reason: VITAL SIGNS Height 62 in 2016-06-25 Weight 308.6 lbs 2016-06-25 Heart Rate 82 bpm 2016-06-25 Respiratory Rate 20 2016-06-25 BMI 56.44 kg/m2 2016-06-25 Blood pressure systolic 161 mmHg 2016-06-25 Blood pressure diastolic 83 mmHg 2016-06-25 MEDICATIONS Medication Instructions Dosage Frequency Start Date End Date Duration Status Fiber - Active Meloxicam 15 MG TAKE ONE TABLET BY MOUTH ONCE DAILY 90 Active Amitriptyline HCl 10 mg Orally Once a day, can increase by 10 mg daily each week if needed 1 tablet Jun, 30 day(s) Active Lisinopril 40 MG Orally Once a day 1 tablet 24h 90 days Active Cyanocobalamin 1000 MCG/ML 1 Active Sertraline HCl 100 MG Orally Once a day 1 tablet 24h Dec, 90 days Active Ferrous Sulfate 325 (65 Fe) MG Orally Once a day 1 tablet 24h Dec, Active Levothyroxine Sodium 100 MCG Orally Once a day 1 tablet on an empty stomach in the morning 24h 90 days Active MetFORMIN HCl ER 750 MG Orally 2 times a day 1 tablet 12h 90 days Active RESULTS Name Result Date Reference Range A1C (IN HOUSE) 2016-06-25 A1C IN HOUSE 6.1 4.3 - 5.6 % Previous A1c 5.9 Lot [id number] Exp date MICROALBUMIN, URINE (IN HOUSE) 2016-06-25 MICROALBUMIN Normal Lot # [id number] Exp date Clarity Clear Color Yellow ALB 30 CRE 200 A:C (IN HOUSE) <30 Control + Control Lot # Exp date CT Scan : Head/Brain w/o Contrast 2016-06-29 PROCEDURES Procedure Date Ordered Related Diagnosis Body Site GLYCATED HEMOGLOBIN TEST Jun 25, 2016 MICROALBUMIN, SEMIQUANT Jun 25, 2016 Office Visit, Est Pt., Level 3 Jun 25, 2016 [facility] VISIT ESTABLISHED PATIENT Jun 25, 2016 IMMUNIZATIONS No Known Immunizations
--- OUTSIDE RECORDS SUMMARY | 2017-04-05 09:07 | XMS REPORT ---
Author Author BRENTON DORAN [facility] eClinicalWorks Address Unknown Phone Unavailable Care Team Providers Care Supervisor Grounds Name Role Phone BRENTON DORAN CP Unavailable [...] Instructions Start Date End Date Status Dosage Pravastatin Sodium [facility] [address]-69 40 MG Orally Once a day Jun 13, 2015 1 tablet Results No Known Results Summary Purpose eClinicalWorks Submission
--- OUTSIDE RECORDS SUMMARY | 2017-04-05 09:07 | XMS REPORT ---
Author Author BRENTON DORAN [facility] eClinicalWorks Address Unknown Phone Unavailable Care Team Providers Care Blow Moulding Machine Operator Name Role Phone BRENTON DORAN CP [...] Start Date End Date Status Dosage Zetia [facility] [address]-68 10 MG Orally Once a day Oct 22, 2015 1 tablet Results No Known Results Summary Purpose eClinicalWorks Submission
--- OUTSIDE RECORDS SUMMARY | 2017-04-05 09:07 | XMS REPORT ---
Author Author BRENTON DORAN [facility] eClinicalWorks Address Unknown Phone Unavailable Care Team Providers Care Glass Smoother Name Role Phone BRENTON DORAN CP Unavailable [...] Start Date End Date Status Dosage Lisinopril [facility] [address]-16 20 MG Orally Once a day Sep 17, 2015 1 tablet Results No Known Results Summary Purpose eClinicalWorks Submission
--- OUTSIDE RECORDS SUMMARY | 2017-04-05 09:07 | XMS REPORT ---
Author Author BRENTON DORAN [employer] Address Unknown Phone Unavailable Care Team Providers Care Inspection Engineer Name Role Phone BRENTON DORAN CP Unavailable [...] System Code Date THER/PROPH/DIAG INJ, SC/IM CPT-4 83185 April 21, 2016 B12, VITAMIN (UP TO 1000 MCG) CPT-4 J3420 April 21, 2016 Results No Known Results Summary Purpose eClinicalWorks Submission
== END 2017-04-04 19:05 | disposition home or self-care (01) ==
LOC: EDUNIT# 17:18 → ER 17:20
DX: S50.01XA Contusion of right elbow, initial encounter (principal); E11.9 Type 2 diabetes mellitus without complications; F32.9 Major depressive disorder, single episode, unspecified; I10 Essential (primary) hypertension; E78.00 Pure hypercholesterolemia, unspecified; F41.9 Anxiety disorder, unspecified; Z88.7 Allergy status to serum and vaccine; Z91.048 Other nonmedicinal substance allergy status; Z88.1 Allergy status to other antibiotic agents; Z88.0 Allergy status to penicillin; Z88.2 Allergy status to sulfonamides; Z88.6 Allergy status to analgesic agent; Z88.9 Allergy status to unspecified drugs, medicaments and biological substances; Z79.84 Long term (current) use of oral hypoglycemic drugs; W01.0XXA Fall on same level from slipping, tripping and stumbling without subsequent striking against object, initial encounter
CPT/HCPCS: 73060; 73090; 73130; 99282

== ENCOUNTER → 2017-04-25 | Outpatient (CLI) | payer MEDICARE, OTHER | LOC: RAD 13:19 | PROVIDERS: ATTEND Family Medicine | DX: M25.511 Pain in right shoulder (principal) ==

== ENCOUNTER 2017-05-11 05:35 | Outpatient (CLI) | payer MEDICARE, OTHER ==
[~2017-05-11] VITALS: Ht 157.5 cm; Wt 142.6 kg
[2017-05-11] MEDS ORDERED: METF1000 PO (11:28)
[2017-05-11] MEDS ORDERED: SITA25TA5 PO (11:28)
[2017-05-11] MEDS ORDERED: MERC50TA PO (11:28)
[2017-05-11] MEDS ORDERED: SERT100T8 PO (11:28)
[2017-05-11] MEDS ORDERED: ASCO-262 PO (11:28)
[2017-05-11] MEDS ORDERED: LISI40TA PO (11:28)
[2017-05-11] MEDS ORDERED: CNC1KV IJ (11:28)
[2017-05-11] MEDS ORDERED: FERR325C PO (11:28)
[2017-05-11] MEDS ORDERED: CHOL100048 PO (11:28)
[2017-05-11] MEDS ORDERED: EZET10TA5 PO (11:30)
[2017-05-11 11:31] VITALS: BP 140/83
== END 2017-05-11 11:53 | disposition home or self-care (01) ==
LOC: PREOP 05:35
PROVIDERS: ATTEND Orthopaedic Surgery
DX: Z01.818 Encounter for other preprocedural examination (principal); Z11.2 Encounter for screening for other bacterial diseases; M75.101 Unspecified rotator cuff tear or rupture of right shoulder, not specified as traumatic
CPT/HCPCS: 87081

== ENCOUNTER 2017-05-18 08:07 | Day surgery (SDC) | payer MEDICARE, OTHER ==
[~2017-05-18] VITALS: Ht 157.5 cm; Wt 142.6 kg
[~2017-05-18 08:07] MED LIST changes: +ASCO-262 PO; +CHOL100048 PO; +CNC1KV IJ; +FERR325C PO; +LISI40TA PO; +MERC50TA PO; +METF1000 PO; +SITA25TA5 PO
--- OUTSIDE RECORDS SUMMARY | 2017-05-18 08:11 | XMS REPORT | Encounter Summary ---
Author Author [facility] Organization [facility] Address Unknown Phone Unavailable Care Team Providers Care Coke Oven Patcher Name Role Phone PCP Unavailable Encounter Details Date Type Department Care Team Description 05/12/2017 Orders Only [facility] Hernandez Najera MD Crohn's disease of both Physicians - Internal [address] [facility] small [place] [address] with intestinal 2ND FLOOR POD B [phone] obstruction (HCC) [address] [facility] [place] [address] Social History Tobacco Use Types Packs/Day Years Used Date Never Smoker Smokeless Tobacco: Never Used Alcohol Use Drinks/Week oz/Week Comments No Sex Assigned at Date Recorded Not on file as of this encounter Functional Status Functional Status Response Date of Assessment Does the patient have a hearing impairment: No 05/24/2015 Does the patient have a visual impairment: No 05/24/2015 Does the patient have impaired ambulation: No 05/24/2015 Does the patient have an activity of daily living No 05/24/2015 (ADL) impairment: Does the patient have an instrumental activity of No 05/24/2015 daily living (IADL) impairment: Cognitive Status Response Date of Assessment Does the patient have a cognitive impairment: No 05/24/2015 as of this encounter Plan of Treatment Not on fileas of this encounter Results * MISCELLANEOUS LAB TEST (12/01/2016) Component Value Ref Range Thiopurine S-Methyl Comment: see scan results O2 (TPMT) Specimen Performing Laboratory Blood IN CLINIC in this encounter Visit Diagnoses Diagnosis Crohn's disease of both small and large intestine with intestinal obstruction (HCC) Regional enteritis of small intestine with large intestine in this encounter
--- OUTSIDE RECORDS SUMMARY | 2017-05-18 08:11 | XMS REPORT | Encounter Summary ---
Author Author [facility] Organization [facility] Address Unknown Phone Unavailable Care Team Providers Care Compass Operator Name Role Phone PCP Unavailable Encounter Details Date Type Department Care Team Description 04/20/2017 [facility] Holly Don Dereje, Unspecified abdominal Encounter [address] [place] [address] [place] [address] [phone] Social History Tobacco Use Types Packs/Day Years [...] impairment: No 05/24/2015 as of this encounter Medications at Time of Discharge Medication Sig. Disp. Refills Start Date End Date budesonide (ENTOCORT EC) Take 3 Caps by mouth 90 Cap 1 12/13/2016 3 mg capsuleIndications: every morning. CROHN'S DISEASE Indications: CROHN'S DISEASE cyanocobalamin (VITAMIN Inject 1,000 mcg to B-12, RUBRAMIN) 1,000 area(s) as directed every mcg/mL injection 30 days. electrolyte GUT PEG Mix as directed on 4000 mL 0 09/22/2016 (NULYTELY, COLYTE, package. Drink 240ml GAVILYTE-N) 420 gram oral (8oz) every 10 minutes solution until gone. Refrigerate once mixed. ferrous sulfate 325 mg Take 325 mg by mouth (65 mg iron) tablet daily. FIBER (DEXTRIN) PO Take by mouth daily. levothyroxine (SYNTHROID) Take 100 mcg by mouth 100 mcg tablet daily. lisinopril (PRINIVIL, Take 40 mg by mouth ZESTRIL) 40 mg tablet daily. MELATONIN PO Take by mouth. mercaptopurine Take 1 Tab by mouth 30 Tab 1 03/18/2017 (PURINETHOL) 50 mg daily. CYTOTOXIC tabletIndications: Take on an empty Crohn's colitis, stomach, at least 1 hour unspecified complication before or 2 hours after food. metFORMIN (GLUCOPHAGE) Take 850 mg by mouth 850 mg tablet twice daily with meals. prednisone (DELTASONE) 20 40 mg per day for 1 week; 35 Tab 0 2016 mg tabletIndications: 30 mg per day for 1 week; Crohn's colitis, 20 mg per day for 1 week; unspecified complication 10 mg per day for 1 week sertraline (ZOLOFT) 100 Take 200 mg by mouth mg tablet daily. as of this encounter Progress Notes * Don Barrera MBBS - 04/22/2017 10:58 PM CDT Quick Note: No C diff noted. in this encounter Plan of Treatment Not on fileas of this encounter Results * MISC HURT TEST (04/20/2017 10:00 AM) Component Value Ref Range [place] Miscellaneous Test CDFRP C. difficile Toxin PCR,F Info [place] Miscellaneous Result SEE COMMENTS 04/21/2017 01:00 PM Test Result Flag Unit RefValue C. difficile Toxin PCR, F Specimen Source STOOL Result Negative Not Applicable ADDITIONAL INFORMATION This test was developed and its performance characteristics determined by [facility] in a manner consistent with CLIA requirements. This test has not been cleared or approved by the U.S. Food and Drug Administration. Test Performed by: [facility] - [address] [address] Specimen Performing Laboratory REFERENCE LAB * GIARDIA SCREEN,FECAL (04/20/2017 10:00 AM) Component Value Ref Range Battery Name GIARDIA SCREEN Specimen Description FECES Special Requests NONE Giardia EIA NEGATIVE FOR GIARDIA (LAMBLIA) INTESTINALIS Report Status FINAL 04/20/2017 Specimen Performing Laboratory Feces MAIN LAB [address] [place] [address] * CRYPTOSPORIDUM,FECAL (04/20/2017 10:00 AM) Component Value Ref Range Battery Name CRYPTOSPORIDIUM Specimen Description FECES Special Requests NONE Cryptosporidium NEGATIVE FOR CRYPTOSPORIDIUM Report Status FINAL 04/20/2017 Specimen Performing Laboratory Stool - Feces [facility] [address] [place] [address] * C DIFFICILE BY PCR (04/20/2017 10:00 AM) Component Value Ref Range Battery Name C DIFFICILE PCR Specimen Description FECES Special Requests NONE C. Difficile Toxin B PCR TEST CANCELLED AND REORDERED [facility]IL[facility] SEE [facility] TEST Report Status FINAL 04/20/2017 Specimen Performing Laboratory Feces MAIN LAB [address] [place] [address] in this encounter Visit Diagnoses Diagnosis Abdominal pain, unspecified location Diarrhea, unspecified type in this encounter Admitting Diagnoses Diagnosis Unspecified abdominal pain Diarrhea, unspecified in this encounter
--- OUTSIDE RECORDS SUMMARY | 2017-05-18 08:11 | XMS REPORT | Encounter Summary ---
Author Author [facility] Organization [facility] Address Unknown Phone Unavailable Care Team Providers Care Plastic Parts Designer Name Role Phone PCP Unavailable Reason for Visit * Reason Comments Other give new fax #s Encounter Details Date Type Department Care Team Description 05/05/2017 Telephone [facility] Don Barrera, Other (give new fax #s) Physicians - Internal [facility] [address] [place] [address] 2ND FLOOR POD B [phone] [place] [address] Social History Tobacco Use Types Packs/Day Years [...] Treatment Not on fileas of this encounter Visit Diagnoses Not on filein this encounter
--- OUTSIDE RECORDS SUMMARY | 2017-05-18 08:11 | XMS REPORT | Encounter Summary ---
Author Author [facility] Organization [facility] Address Unknown Phone Unavailable Care Team Providers Care Dairy Feed Sales Consultant Name Role Phone PCP Unavailable Encounter Details Date Type Department Care Team Description 03/25/2017 [facility] Holly Don Dereje, Unspecified abdominal Encounter [address] [place] [place] [address] [place] [address] [phone] Social History Tobacco Use Types Packs/Day Years [...] 200 mg by mouth mg tablet daily. vancomycin (VANCOCIN) 125 Take 1 Cap by mouth four 56 Cap 0 201604/12/2017 mg capsule times daily for 14 days. as of this encounter Progress Notes * Don Barrera MBBS - 03/28/2017 9:07 AM CDT Quick Note: Normal, repeat in 2 months in this encounter Plan of Treatment Not on fileas of this encounter Results * COMPREHENSIVE METABOLIC PANEL (03/25/2017 10:50 AM) Component Value Ref Range Sodium 140 137 - 147 MMOL/L Potassium 3.9 3.5 - 5.1 MMOL/L Chloride 108 98 - 110 MMOL/L Glucose 280 (H) 70 - 100 MG/DL Blood Urea Nitrogen 10 7 - 25 MG/DL Creatinine 0.68 0.4 - 1.00 MG/DL Calcium 9.7 8.5 - 10.6 MG/DL Total Protein 6.4 6.0 - 8.0 G/DL Total Bilirubin 0.6 0.3 - 1.2 MG/DL Albumin 3.7 3.5 - 5.0 G/DL Alk Phosphatase 62 25 - 110 U/L AST (SGOT) 35 7 - 40 U/L CO2 24 21 - 30 MMOL/L ALT (SGPT) 21 7 - 56 U/L Anion Gap 8 3 - 12 eGFR Non >60 >60 mL/min Comment: The eGFR is not validated for use in drug dosing adjustments. Continue to use estimated creatinine clearance per dosing reference text. Please contact the Clinical Pharmacist for questions. eGFR >60 >60 mL/min Comment: The eGFR is not validated for use in drug dosing adjustments. Continue to use estimated creatinine clearance per dosing reference text. Please contact the Clinical Pharmacist for questions. Specimen Performing Laboratory Blood [facility] [address] [place] [address] * CBC AND DIFF (03/25/2017 10:50 AM) Component Value Ref Range White Blood Cells 5.4 4.5 - 11.0 K/UL RBC 4.34 4.0 - 5.0 M/UL Hemoglobin 13.4 12.0 - 15.0 GM/DL Hematocrit 39.7 36 - 45 % MCV 91.6 80 - 100 FL MCH 30.9 26 - 34 PG MCHC 33.7 32.0 - 36.0 G/DL RDW 14.2 11 - 15 % Platelet Count 173 150 - 400 K/UL MPV 7.9 7 - 11 FL Neutrophils 69 41 - 77 % Lymphocytes 21 (L) 24 - 44 % Monocytes 5 4 - 12 % Eosinophils 4 0 - 5 % Basophils 1 0 - 2 % Absolute Neutrophil Count 3.70 1.8 - 7.0 K/UL Absolute Lymph Count 1.10 1.0 - 4.8 K/UL Absolute Monocyte Count 0.30 0 - 0.80 K/UL Absolute Eosinophil Count 0.20 0 - 0.45 K/UL Absolute Basophil Count 0.00 0 - 0.20 K/UL Specimen Performing Laboratory Blood [facility] [address] [place] [address] * MISC HURT TEST (03/25/2017 8:00 AM) Component Value Ref Range [place] Miscellaneous Test CDFRP, C DIFFICILE TOXIN PCR,F Info [place] Miscellaneous Result SEE COMMENTS 03/26/2017 07:01 PM Test Result Flag Unit RefValue C. difficile Toxin PCR, F Specimen Source STOOL Result Negative Not Applicable ADDITIONAL INFORMATION This test was developed and its performance characteristics determined by [facility] in a manner consistent with CLIA requirements. This test has not been cleared or approved by the U.S. Food and Drug Administration. Test Performed by: [facility] - [address] [address] Specimen Performing Laboratory REFERENCE LAB * GIARDIA SCREEN,FECAL (03/25/2017 8:00 AM) Component Value Ref Range Battery Name GIARDIA SCREEN Specimen Description FECES Special Requests NONE [place] EIA NEGATIVE FOR GIARDIA (LAMBLIA) INTESTINALIS Report Status FINAL 03/25/2017 Specimen Performing Laboratory Feces [facility] [address] [place] [id number] * CRYPTOSPORIDUM,FECAL (03/25/2017 8:00 AM) Component Value Ref Range Battery Name CRYPTOSPORIDIUM Specimen Description FECES Special Requests NONE Cryptosporidium POSITIVE FOR CRYPTOSPORIDIUM NOTIFIED DR. BARRERA AT 1545 ON 03/25/17 BY . Report Status FINAL 03/25/2017 Specimen Performing Laboratory Feces [facility] [address] [place] [address] * C DIFFICILE BY PCR (03/25/2017 8:00 AM) Component Value Ref Range Battery Name C DIFFICILE PCR Specimen Description FECES Special Requests NONE C. Difficile Toxin B PCR TEST CANCELLED AND REORDERED [facility] TEST Report Status FINAL 03/25/2017 Specimen Performing Laboratory Feces [facility] [address] [place] [phone] in this encounter Visit Diagnoses Diagnosis Abdominal pain, unspecified location Diarrhea, unspecified type in this encounter Admitting Diagnoses Diagnosis Unspecified abdominal pain Diarrhea, unspecified in this encounter
--- OUTSIDE RECORDS SUMMARY | 2017-05-18 08:11 | XMS REPORT | Encounter Summary ---
Author Author [facility] Organization [facility] Address Unknown Phone Unavailable Care Team Providers Care An/Syq 13 Nav/C2 Operator Name Role Phone PCP Unavailable Reason for Visit * Reason Comments Hyperglycemia Gas Encounter Details Date Type Department Care Team Description 03/22/[address] [facility] Don Barrera, Hyperglycemia; Gas Physicians - Internal [facility] Medicine [address] [place] [address] [address] FLOOR POD B [phone] [place] [address] Social History Tobacco Use Types [...] on fileas of this encounter Results * GIARDIA SCREEN,FECAL (04/20/2017 10:00 AM) Component Value Ref Range Battery Name GIARDIA SCREEN Specimen Description FECES Special Requests NONE Giardia EIA NEGATIVE FOR GIARDIA (LAMBLIA) INTESTINALIS Report Status FINAL 04/20/2017 Specimen Performing Laboratory Feces MAIN LAB [address] [place] [address] * CRYPTOSPORIDUM,FECAL (04/20/2017 10:00 AM) Component Value Ref Range Battery Name CRYPTOSPORIDIUM Specimen Description FECES Special Requests NONE Cryptosporidium NEGATIVE FOR CRYPTOSPORIDIUM Report Status FINAL 04/20/2017 Specimen Performing Laboratory Stool - Feces MAIN LAB [address] [place] [address] * C DIFFICILE BY PCR (04/20/2017 10:00 AM) Component Value Ref Range Battery Name C DIFFICILE PCR Specimen Description FECES Special Requests NONE C. Difficile Toxin B PCR TEST CANCELLED AND REORDERED MISC MAILOUT SEE [facility] TEST Report Status FINAL 04/20/2017 Specimen Performing Laboratory Feces MAIN LAB [address] [place] [address] * COMPREHENSIVE METABOLIC PANEL (03/25/2017 10:50 AM) [...] Performing Laboratory Blood [facility] [address] [place] [address] * CBC AND DIFF (03/25/2017 10:50 AM) [...] Performing Laboratory Blood [facility] [address] [place] [address] in this encounter Visit Diagnoses Diagnosis Abdominal pain, unspecified location - Primary Diarrhea, unspecified type in this encounter
--- OUTSIDE RECORDS SUMMARY | 2017-05-18 08:11 | XMS REPORT | Clinical Summary ---
Author Author [facility] Organization [facility] Address Unknown Phone Unavailable Care Team Providers Care Automation Qa Tester Name Role Phone PCP Unavailable Source Comments Some departments are not documenting in the electronic medical record. If you do not see the information that you expected, contact Release of Information in the Health Information Management department at [phone] for further assistance in locating additional records.[facility] Allergies Active Allergy Reactions Severity Noted Date Comments Hydromorphone HALLUCINATIONS High 05/21/2015 Morphine HALLUCINATIONS High 05/21/2015 Adhesive RASH Medium 11/11/2014 Erythromycin RASH, NAUSEA AND VOMITING Medium 11/11/2014 Penicillins RASH Medium 11/11/2014 Tolerates Keflex Sulfa (Sulfonamide HEADACHE, HIVES, RASH Medium 11/11/2014 Antibiotics) Tetanus And Diphtheria HEADACHE, EDEMA Medium 11/11/2014 Toxoids, Adsorbed, Adult Influenza Virus Vaccines SEE COMMENTS Low 11/11/2014 Hospitalized with flu at age 17. Atorvastatin STOMACH UPSET Low 11/11/2014 Simvastatin STOMACH UPSET Low 11/11/2014 Current Medications Prescription Sig. Disp. Refills Start [...] 90 Cap 1 12/14/19 Active 3 mg capsuleIndications: every morning. 17 CROHN'S DISEASE Indications: CROHN'S DISEASE prednisone (DELTASONE) 20 40 mg per day for 1 week; 35 Tab 0 01/15/20 Active mg tabletIndications: 30 mg per day for 1 week; 17 Crohn's colitis, 20 mg per day for 1 week; unspecified complication 10 mg per day for 1 week mercaptopurine Take 1 Tab by mouth 30 Tab 1 03/18/20 Active (PURINETHOL) 50 mg daily. CYTOTOXIC 17 tabletIndications: Take on an empty Crohn's colitis, stomach, at least 1 hour unspecified complication before or 2 hours after food. Active [...] (HCC) 11/11/2014 Hypothyroid 11/11/2014 S/P dusty 11/11/2014 Encounters Date Type Specialty Care Team Description 05/12/2017 Orders Only Gastroenterology Hernandez Najera MD Crohn's disease of both small and large intestine with intestinal obstruction (HCC) 05/05/2017 Telephone Gastroenterology Don Barrera, Other ( give new fax #s) [facility] 04/20/2017 Hospital Don Barrera, Unspecified abdominal Encounter MBBS pain 04/13/2017 Telephone Gastroenterology Don Barrera, Follow-up Phone Call [facility] 03/25/2017 [facility] Don Barrera, Unspecified abdominal Encounter MBBS pain 03/22/2017 Telephone Gastroenterology Don Barrera, Hyperglycemia; Gas BS 03/21/2017 Orders Only Gastroenterology Don Barrera, Crohn's disease involving MBBS terminal ileum (HCC) 03/14/2017 Refill Gastroenterology Don Barrera, Crohn's colitis, MBBS unspecified complication (HCC) (Primary Dx) 02/21/2017 Telephone Gastroenterology Don Barrera, General Question [facility] from Last 3 Months Immunizations Name Dates Previously Given Next Due HEP A/HEP B Combined 05/07/2017 (Deferred: Patient Refused), 12/13/2016 Vaccine Hepatitis B Vaccine Adult 05/07/2017 (Deferred: Patient Refused) 3 Dose IM Family History Medical History Relation Name Comments Heart Disease Brother Heart Disease Father Diabetes Mother Hypertension Mother Stroke Mother Diabetes Sister Relation Name Status Comments Brother Father Mother Sister Social History Tobacco Use Types Packs/Day Years Used Date Never Smoker Smokeless Tobacco: Never Used Alcohol Use Drinks/Week oz/Week Comments No Sex Assigned at Date Recorded Not on file Last Filed Vital Signs Vital Sign Reading Time Taken Blood Pressure 151/71 12/13/2016 3:46 PM [facility] [employer] Pulse 67 12/13/2016 3:46 PM [facility] [employer] Temperature 36.7 C (98.1 F) 12/13/2016 3:46 PM [facility] [employer] Respiratory Rate 16 12/13/2016 3:46 PM [facility] [employer] Oxygen Saturation 94% 11/03/2016 1:20 PM [facility] [employer] Inhaled Oxygen - - Concentration Weight 142.2 kg (313 lb 9.6 oz) 12/13/2016 3:46 PM [facility] [employer] Height 157.5 cm (5' 2") 12/13/2016 3:46 PM [facility] Body Mass Index 57.36 12/13/2016 3:46 PM [employer] Plan of Treatment Health Maintenance Due Date Last Done Comments HEPATITIS C SCREENING 1953 PHYSICAL (COMPREHENSIVE) 1960 EXAM PERTUSSIS VACCINE 1964 TETANUS VACCINE 1970 CERVICAL CANCER SCREENING 1983 BREAST CANCER SCREENING 1993 SHINGLES VACCINE 2013 INFLUENZA VACCINE 06/10/2017 COLORECTAL CANCER 11/03/2026 11/03/2016, 11/03/2016, 11/03/2016, SCREENING Additional history exists Implants Implanted Type Area Crop Roller Device Expiration Model / Identifier Date Serial / Lot Knee Replacement Knee Results * C DIFFICILE BY PCR (04/20/2017 10:00 AM) Only the most recent of 2 results within the time period is included. Component Value Ref Range Battery Name C DIFFICILE PCR Specimen Description FECES Special Requests NONE C. Difficile Toxin B PCR TEST CANCELLED AND REORDERED [facility] MAILOUT SEE [facility] TEST Report Status FINAL 04/20/2017 Specimen Performing Laboratory Feces [facility] [address] [place] [id number] * [facility] TEST (04/20/2017 10:00 AM) Only the most recent of 2 results within the time period is included. Component Value Ref Range [facility] C. difficile Toxin PCR,F Info [place] Miscellaneous Result SEE COMMENTS 04/21/2017 01:00 PM Test Result Flag Unit RefValue C. difficile Toxin PCR, F Specimen Source STOOL Result Negative Not Applicable ADDITIONAL INFORMATION This test was developed and its performance characteristics determined by [facility] in a manner consistent with CLIA requirements. This test has not been cleared or approved by the U.S. Food and Drug Administration. Test Performed by: [facility] - [address] [address] Specimen Performing Laboratory REFERENCE LAB * GIARDIA SCREEN,FECAL (04/20/2017 10:00 AM) Only the most recent of 2 results within the time period is included. Component Value Ref Range Battery Name GIARDIA SCREEN Specimen Description FECES Special Requests NONE Giardia EIA NEGATIVE FOR GIARDIA (LAMBLIA) INTESTINALIS Report Status FINAL 04/20/2017 Specimen Performing Laboratory Feces MAIN [facility] [address] [place] [address] * CRYPTOSPORIDUM,FECAL (04/20/2017 10:00 AM) Only the most recent of 2 results within the time period is included. Component Value Ref Range Battery Name CRYPTOSPORIDIUM Specimen Description FECES Special Requests NONE Cryptosporidium NEGATIVE FOR CRYPTOSPORIDIUM Report Status FINAL 04/20/2017 Specimen Performing Laboratory Stool - Feces [facility]IN [facility] [address] [place] [address] * CBC AND DIFF (03/25/2017 10:50 AM) Only the most recent of 2 results within the time period is included. Component Value Ref Range White Blood Cells [...] - 0.20 K/UL Specimen Performing Laboratory Blood MAIN LAB [address] [place] [address] * COMPREHENSIVE METABOLIC PANEL (03/25/2017 10:50 AM) Only the most recent of 2 results within the time period is included. Component Value Ref Range Sodium 140 137 [...] Performing Laboratory Blood [facility] [address] [place] [address] from Last 3 Months
--- OUTSIDE RECORDS SUMMARY | 2017-05-18 08:11 | XMS REPORT | Encounter Summary ---
Author Author [facility] Organization [facility] Address Unknown Phone Unavailable Care Team Providers Care Pharmacy Picking Tech Name Role Phone PCP Unavailable Reason for Visit * Reason Comments Follow-up Phone Call Encounter Details Date Type Department Care Team Description 04/13/2017 Telephone [facility] Don Barrera, Follow -up Phone Call Physicians - Internal [facility] Medicine [address] [place] [address] [address]LO[address] [phone] [place] [address] Social History Tobacco Use Types [...]
--- OUTSIDE RECORDS SUMMARY | 2017-05-18 08:12 | XMS REPORT | Encounter Summary ---
Author Author [facility] Organization [facility] Address Unknown Phone Unavailable Care Team Providers Care Nail Sticker Name Role Phone PCP Unavailable Reason for Visit * Reason Comments General Question Encounter Details Date Type Department Care Team Description 02/21/2017 Telephone [facility] Don Barrera, General Question Physicians - Internal [facility] Medicine [address] [place] [address] [address] FLOOR POD B [phone] [place] [address] Social History Tobacco Use Types [...]
--- OUTSIDE RECORDS SUMMARY | 2017-05-18 08:12 | XMS REPORT | Encounter Summary ---
Author Author [facility] Organization [facility] Address Unknown Phone Unavailable Care Team Providers Care Interior Specialist Name Role Phone PCP Unavailable Reason for Visit * Reason Comments Medication Refill Encounter Details Date Type Department Care Team Description [facility] Physicians - Internal [facility] unspecified complication Medicine [address] (HCC) (Primary Dx) [address] [place] [address] [address] FLOOR POD B [phone] [place] [address] Social History Tobacco Use Types [...] on fileas of this encounter Visit Diagnoses Diagnosis Crohn's colitis, unspecified complication - Primary in this encounter
--- OUTSIDE RECORDS SUMMARY | 2017-05-18 08:12 | XMS REPORT | Encounter Summary ---
Author Author [facility] Organization [facility] Address Unknown Phone Unavailable Care Team Providers Care Field Naturalist Name Role Phone PCP Unavailable Encounter Details Date Type Department Care Team Description 03/21/2017 Orders Only [facility] Don Barrera, Crohn's disease involving Physicians - Internal MBBS terminal ileum (HCC) Medicine [address] [place] [address] 2ND FLOOR POD B [phone] [place] [address] Social History Tobacco Use Types [...] impairment: No 05/24/2015 as of this encounter Progress Notes * Don Barrera MBBS - 03/21/2017 9:19 AM CDT Quick Note: normal labs, repeat in 2 months. in this encounter Plan of Treatment Not on fileas of this encounter Results * COMPREHENSIVE METABOLIC PANEL (03/15/2017) Component Value Ref Range Sodium 143 Potassium 4.2 Chloride 106 CO2 23 Blood Urea Nitrogen 10 Creatinine 0.68 Glucose 0.245 Calcium 9.2 Total Protein 6.1 Total Bilirubin 0.5 Albumin 3.8 Alk Phosphatase 74 AST (SGOT) 39 ALT (SGPT) 24 eGFR Non 93 eGFR 108 Anion Gap Specimen Performing Laboratory Blood IN CLINIC * CBC AND DIFF (03/15/2017) Component Value Ref Range White Blood Cells 5.0 RBC 4.25 Hemoglobin 13.0 Hematocrit 39.6 MCV 93 MCH 30.6 MCHC 32.8 Platelet Count 13.7 MPV RDW 13.7 Neutrophils 64 Absolute Neutrophil Count 3.2 Lymphocytes 28 Absolute Lymph Count 1.4 Monocytes 5 Absolute Monocyte Count 0.3 Eosinophil 3 Absolute Eosinophil Count 0.1 Basophils 0 Absolute Basophil Count 0.0 Atypical Lym Metamyelocyte Myelocyte Promyelocyte Blast RBC Morph WBC Morphology Specimen Performing Laboratory Blood IN CLINIC in this encounter Visit Diagnoses Diagnosis Crohn's disease involving terminal ileum (HCC) in this encounter
[2017-05-18] MEDS: LACTATED RINGERS 1,000 ML IV PRN ×2 (08:20→10:08)
[2017-05-18 08:25] VITALS: BP 149/81
[2017-05-18] MEDS ORDERED: ceFAZolin 1,000 MG (ANCEF) VIAL ONE (08:27)
[2017-05-18] MEDS ORDERED: NS (IVPB) 50 ML ONE (08:27)
--- NOTE | 2017-05-18 08:43 | Progress Note-Pre Operative ---
Pre-Operative Progress Note H&P Reviewed The H&P was reviewed, patient examined and no changes noted. Date Seen by Provider: May 18, 2017 Time Seen by Provider: 08:42 Date H&P Reviewed: May 18, 2017 Time H&P Reviewed: 08:42 Pre-Operative Diagnosis: right rotator cuff tear and SLAP tear RONY SAMANIEGO MD May 18, 2017 08:43
--- NOTE | 2017-05-18 08:44 | Progress Note-Post Operative ---
Post-Operative Progess Note Surgeon (s)/Senior Dot Net Developer (s) Surgeon RONY SAMANIEGO MD Senior Dot Net Developer: Nate Jade Pre-Operative Diagnosis right rotator cuff tear and SLAP tear Post-Operative Diagnosis right rotator cuff tear and SLAP tear Procedure & Operative Findings Date of Procedure 05/18/17 Procedure Performed/Findings right shoulder arthroscopic biceps tenotomy, acromioplasty and open rotator cuff repair Anesthesia Type GETA Estimated Blood Loss Estimated blood loss (mL): minimal Specimens/Packing Specimens Removed none Packing: none RONY SAMANIEGO MD May 18, 2017 08:44
[2017-05-18] MEDS ORDERED: ROPIVACAINE 5MG/ML 30ML VIAL ONE (08:46)
[2017-05-18] MEDS ORDERED: MIDAZOLAM 2 MG/2 ML (VERSED) VIAL ONE (08:46)
[2017-05-18] MEDS ORDERED: oxyCODONE/APAP 5/325MG (PERCOCET 5) TABLET PO PRN (09:00)
[2017-05-18] MEDS ORDERED: morphine PF (DURAMORPH) 10 MG/10 ML AMP ONE (09:07)
[2017-05-18] MEDS ORDERED: BUPIVACAINE 0.25% 30 ML (SENSORCAINE) VIAL ONE (09:07)
[2017-05-18] MEDS ORDERED: fentaNYL INJECTION 100 MCG/2 ML AMP ONE (09:12)
[2017-05-18] MEDS ORDERED: LACTATED RINGERS 1,000 ML IV ONE ×2 (09:12→10:16)
[2017-05-18] MEDS ORDERED: SEVOFLURANE (ULTANE) 15 ML INHAL SOLN ONE (09:12)
[2017-05-18] MEDS ORDERED: LIDOCAINE PF 2% 5 ML (XYLOCAINE) VIAL ONE (09:12)
[2017-05-18] MEDS ORDERED: proPOfol 200 MG/20 ML (DIPRIVAN) VIAL IV ONE (09:12)
[2017-05-18] MEDS ORDERED: ROCURONIUM 50 MG/5 ML (ZEMURON) VIAL IV ONE (09:12)
[2017-05-18] MEDS ORDERED: ONDANSETRON 4 MG/2 ML (SDV) Z0FRAN ONE ×2 (09:12→09:45)
--- NOTE | 2017-05-18 09:30 | Anesthesia-Peripheral Nerve Bl ---
Procedure Start/Stop Time Date of Procedure: May 18, 2017 Start Time: 09:00 Stop Time: 09:15 Peripheral Nerve Block Peripheral Nerve Blockade Risk/Benefits/Alternatives discussed, including IV injection leading to complications or seizures, nerve irritation or damage, pneumothorax, total spinal anesthesia, injection, and/or bleeding. Approach: Right Interscalene block Side Confirmed: RIGHT Indication: Req Pain Mgmt by Surgeon Specifically requested for management of pain by: Dr. Noriega Patient Condition Vital Signs Vital Signs Date Time Temp Pulse Resp B/P (MAP) Pulse Ox O2 Delivery O2 Flow Rate FiO2 05/18/17 08:25 98.1 70 18 149/81 97 Room Air Patient Condition: Sedate/contact maintained Indication Open rotator cuff repair Procedure Prepartation: Chlorhexidine Position: Supine [place]: Short-bevel Needle (s) Size: 22g 2" Technique: Nerve Stimulation, Ultrasound Motor response or parethesia o: bicepts twitch lost at 0.48 mA mA: 0.48 Sedation Given: Midazolam (2mg) Injectate: ropivacaine Concentration %: 0.5 Volume (ml): 30 Epinephrine used: No Narrative Injection was made incrementally with constant monitoring. Aspiration every (mls): 5 Blood Aspirated: No Pain on injection noted: No Normal Resistance on injection: Yes Events Events: None:easy well tolerated Sucess: Full evaluation-pending Patient Conditon Post Peripheral Nerve Block Post Peripheral Nerve Block Vital Signs: Blood Pressure: Systolic Diastolic Heart Rate Blood Pressure Systolic: 149 Blood Pressure Diastolic: 81 Pulse Rate (adult): 70 TONY GOMEZ CRNA May 18, 2017 09:30
[2017-05-18] MEDS ORDERED: NEOSTIGMINE (BLOXIVERZ ) 1 MG/1ML 10 ML VIAL ONE (10:12)
[2017-05-18] MEDS ORDERED: GLYCOPYRROLATE 0.2 MG/ML (ROBINUL) 2 ML VIAL ONE (10:12)
[2017-05-18] MEDS ORDERED: PROMETHAZINE INJ 25 MG/ML (PHENERGAN) AMP IVP PRN (10:45)
[2017-05-18] MEDS ORDERED: fentaNYL INJECTION 100 MCG/2 ML AMP IVP PRN (10:45)
[2017-05-18 11:35] VITALS: BP 87/51
[2017-05-18] MEDS ORDERED: HYDROcodone/APAP 7.5 MG/325 MG (LORTAB, LORCET PLUS) TABLET PO ONE ×2 (11:53→12:15)
[2017-05-18 12:05] VITALS: BP 111/62
[2017-05-18 12:35] VITALS: BP 121/62
--- NOTE | 2017-05-18 13:04 | OPERATIVE REPORT ---
DATE OF SERVICE: 05/18/2017 PRE AND POSTOPERATIVE DIAGNOSIS: 1. Right rotator cuff tear. 2. Right shoulder SLAP tear. PROCEDURES: 1. Right shoulder arthroscopic biceps tenotomy. 2. Right shoulder arthroscopic acromioplasty. 3. Right shoulder rotator cuff repair. SURGEON: RONY SAMANIEGO MD RESIDENT PROGRAM SPECIALIST: LIBORIO CHAVEZ, who assisted throughout the procedure and closed the incisions. ANESTHESIA: General endotracheal plus interscalene nerve block by Dr. Merino. ESTIMATED BLOOD LOSS: Minimal. DRAINS: None. COMPLICATIONS: None. POSTOPERATIVE PLAN: Passive range of motion and sling wear for 4 weeks. The patient was transferred to the recovery room awake and in stable condition. STATEMENT OF MEDICAL NECESSITY: The patient is a 61-year-old right hand dominant female who fell injuring her right shoulder and has had weakness and pain since that point. An MRI revealed a full-thickness supraspinatus tear as well as a SLAP tear, and due to functional impairment and failure to improve with conservative measures, the patient elected to proceed with surgical intervention. Examination under anesthesia revealed a forward elevation of 170 degrees, external rotation of 80 degrees, internal rotation of 70 degrees. Arthroscopic findings demonstrated a type 2 SLAP tear. There is a 2 x 2 cm full-thickness supraspinatus tear. The remainder of the rotator cuff was intact. The remainder of the labrum was intact. There was no significant glenoid or humeral head articular wear. There was moderate bursitis in the subacromial space with sloping in the anterolateral acromion. PROCEDURE: After risks and benefits of the procedure were discussed and questions were answered, and informed consent was signed and placed on the chart, the operative site was confirmed in the preop holding area and initialed by the surgeon. The patient was then transported to the operating room where after adequate levels of general endotracheal a timeout was called to confirm the operative site. Examination under anesthesia was performed with the above findings noted. The right shoulder and upper extremity were prepped and draped in usual sterile fashion. The shoulder joint was injected with 20 mL of fluid in a standard posterior portal placed under direct visualization under direct visualization a lateral port was created through the rotator cuff tear and the biceps anchor was released. The stump was then debrided with a shaver. The scope was then redirected into the subacromial space and through the lateral portal a bursectomy and acromioplasty was performed using a shaver to plane the acromion to flat type 1 acromion. The lateral portal was then extended. The deltoid was split along its fibers leaving attached to the acromion. A bleeding bony bed was prepared just off the articular surface, and a single corkscrew anchor was placed. A modified Surinder-Milton repair was performed with excellent repair obtained. No undue tension was noted at the rotator cuff repair site. The wound was copiously irrigated. The deltoid was repaired in a jfek-ct-rzax fashion using #2 fiberwire in a upjtcy-ha-stxib interrupted fashion. The wound was thoroughly irrigated. A 2-0 Vicryl was used to reapproximate the subcutaneous tissue, and the portal site and skin incision were closed with 4-0 nylon. A soft dressing and sling were applied. The patient was transported to the recovery room, awake and in stable condition. Job ID: [id number] DocumentID: [id number] Dictated Date: 05/18/2017 10:38:26 Plant And Maintenance Technician Date: 05/18/2017 13:03:20 Dictated By: RONY SAMANIEGO MD
== END 2017-05-18 13:40 | disposition home or self-care (01) ==
LOC: SDC 08:07
PROVIDERS: ATTEND Orthopaedic Surgery
DX: S43.431A Superior glenoid labrum lesion of right shoulder, initial encounter (principal); S46.011A Strain of muscle(s) and tendon(s) of the rotator cuff of right shoulder, initial encounter; W19.XXXA Unspecified fall, initial encounter; Y99.8 Other external cause status; I10 Essential (primary) hypertension; E05.90 Thyrotoxicosis, unspecified without thyrotoxic crisis or storm; E11.9 Type 2 diabetes mellitus without complications; E78.00 Pure hypercholesterolemia, unspecified; Z79.899 Other long term (current) drug therapy
CPT/HCPCS: 82962

== ENCOUNTER → 2017-06-01 | Outpatient (CLI) | payer MEDICARE ==
[~2017-06-01] MED LIST changes: +CATHETER FLUSH 10 ML SYR IV PRN; +REGADENOSON 0.4 MG/5 ML SYR (LEXISCAN) IV ONE
[2017-06-01 13:06] VITALS: BP 183/92
[2017-06-01 13:08] VITALS: BP 175/92
--- NOTE | 2017-06-02 04:59 | STRESS TEST ---
DATE OF SERVICE: 06/01/2017 LEXISCAN MYOVIEW STRESS TEST REPORT REFERRING PHYSICIAN: Dr. Vega. Baseline heart rate is 78. Baseline blood pressure 161/85. Baseline EKG is sinus rhythm with no ischemic changes. SUMMARY: The patient was injected with 10.7 mCi of technetium-99 Myoview and the resting images were obtained, then the patient received 0.4 mg of Lexiscan followed by 30.3 mCi of technetium-99 Myoview. Throughout the test, there were no EKG changes. The resting and stress images were reviewed and compared in the short axis, horizontal long axis and vertical long axis views. Review of the images showed good radiotracer uptake with no significant ischemia or infarction. SSS is 1, SDS 1, TID value 0.83. On the gated images, the left ventricle appeared to be normal size with normal contractility. Calculated ejection fraction is 63%. CONCLUSION: 1. The patient tolerated Lexiscan well. 2. No significant ischemia or infarction on SPECT images. 3. Normal left ventricular size with normal contractility. Calculated ejection fraction is 63%. Job ID: [id number] DocumentID: [id number] Dictated Date: 06/01/2017 16:14:05 Space Controller Date: 06/01/2017 17:32:47 Dictated By: LUCY KNAPP MD
== END ==
LOC: CARD 10:14
PROVIDERS: ATTEND Family Medicine
DX: R07.89 Other chest pain (principal)
CPT/HCPCS: 78452; 93017

== ENCOUNTER 2018-03-20 10:20 | Outpatient (CLI) | payer MEDICARE ==
[~2018-03-20] VITALS: Ht 157.5 cm; Wt 138.8 kg
[~2018-03-20 10:20] MED LIST changes: -CATHETER FLUSH 10 ML SYR IV PRN; +HYDR-34 PO; -HYDR-3816 PO; -METF1000 PO; +METF10002 PO; -REGADENOSON 0.4 MG/5 ML SYR (LEXISCAN) IV ONE
[2018-03-20 10:28] VITALS: BP 150/75
[2018-03-20] MEDS ORDERED: SITA50TA PO (10:37)
[2018-03-20] MEDS ORDERED: CHOL200059 PO (10:37)
[2018-03-20] MEDS ORDERED: Ferrous Sulfate PO (10:40)
[2018-03-20] MEDS ORDERED: MELA1TAB15 PO (10:40)
[2018-03-20 11:02] LABS: BASOPHILS % (AUTO) 1 % (0-10); EOSINOPHILS # (AUTO) 0.3 10^3/uL (0.0-0.3); EOSINOPHILS % (AUTO) 5 % (0-10); HEMATOCRIT 39 % (35-52); HEMOGLOBIN 13.1 G/DL (11.5-16.0); LYMPHOCYTES # (AUTO) 1.6 X 10^3 (1.0-4.0); LYMPHOCYTES % (AUTO) 28 % (12-44); MEAN CORPUSCULAR HEMOGLOBIN 31 PG (25-34); MEAN CORPUSCULAR HGB CONC 34 G/DL (32-36); MEAN CORPUSCULAR VOLUME 94 FL (80-99); MEAN PLATELET VOLUME 9.5 FL (7.4-10.4); MONOCYTES # (AUTO) 0.5 X 10^3 (0.0-1.0); MONOCYTES % (AUTO) 9 % (0-12); NEUTROPHILS # (AUTO) 3.3 X 10^3 (1.8-7.8); NEUTROPHILS % (AUTO) 58 % (42-75); PLATELET COUNT 142 10^3/uL (130-400); RED BLOOD COUNT 4.17 10^6/uL (4.35-5.85); RED CELL DISTRIBUTION WIDTH 13.5 % (10.0-14.5); WHITE BLOOD COUNT 5.7 10^3/uL (4.3-11.0)
[2018-03-20 11:27] LABS: ALANINE AMINOTRANSFERASE 27 U/L (0-55); ALBUMIN 3.9 GM/DL (3.2-4.5); ALKALINE PHOSPHATASE 63 U/L (40-136); BILIRUBIN,TOTAL 0.7 MG/DL (0.1-1.0); BUN/CREATININE RATIO 17; CALCIUM 9.9 MG/DL (8.5-10.1); CARBON DIOXIDE 22 MMOL/L (21-32); CHLORIDE 109 MMOL/L (98-107); CREATININE SERUM 0.69 MG/DL (0.60-1.30); GFR ESTIMATED > 60; GLUCOSE 102 MG/DL (70-105); POTASSIUM 4.3 MMOL/L (3.6-5.0); SODIUM 142 MMOL/L (135-145); TOTAL PROTEIN 6.8 GM/DL (6.4-8.2)
[2018-03-22] MEDS ORDERED: HYDR-3062 PO (07:22)
== END 2018-03-20 10:55 | disposition home or self-care (01) ==
LOC: PREOP 10:20
PROVIDERS: ATTEND Orthopaedic Surgery
DX: Z01.812 Encounter for preprocedural laboratory examination (principal); Z11.2 Encounter for screening for other bacterial diseases; M89.9 Disorder of bone, unspecified
CPT/HCPCS: 36415; 80053; 85025; 87081

== ENCOUNTER 2018-03-22 06:10 | Day surgery (SDC) | payer MEDICARE ==
--- NOTE | 2018-03-13 14:33 | HISTORY AND PHYSICAL ---
DATE OF SERVICE: 03/22/2018 DATE OF ADMISSION: 03/22/2018 REASON FOR ADMISSION: This will be for outpatient surgery on 03/22/2018 for right calcaneal osteophyte excision. It is outpatient surgery. HISTORY OF PRESENT ILLNESS: The patient is a 62-year-old female who complaints of progressively worsening right heel pain. She reports pain in the posterior aspect of her foot. She reports pain with shoe wear. She reports this has been progressive in nature. She reports activity limitations because of this. Due to functional impairment and failure to improve with conservative measures, the patient elected to proceed with surgical intervention. Radiographs revealed a large Valentina's deformity. REVIEW OF SYSTEMS: No chest pain, no shortness of breath. No dysuria. PAST MEDICAL HISTORY: Hypertension, hyperthyroidism, diabetes mellitus type 2, hypercholesterolemia, Crohn's disease and cirrhosis of the liver. PAST SURGICAL HISTORY: Appendectomy, thyroidectomy, right total knee arthroplasty, left calcaneal osteophyte excision, hysterectomy, cholecystectomy, colon mass excision, deviated septum repair, ingrown toenail excision and right rotator cuff repair. FAMILY HISTORY: Significant for ischemic heart disease and stroke. PRIMARY CARE PROVIDER: Dr. Vega. MEDICATIONS: Metformin, lisinopril, Synthroid, sertraline, Januvia, iron, [place] and Humira. ALLERGIES: PENICILLIN, SULFA, MYCINS, FLU VACCINE, TETANUS, ZOCOR, LIPITOR, DILAUDID, MORPHINE and ADHESIVE TAPE. SOCIAL HISTORY: The patient denies alcohol or tobacco use. PHYSICAL EXAMINATION: GENERAL: The patient is well developed, well-nourished in no acute distress. HEENT: Normocephalic, atraumatic. Pupils are equal, round and reactive to light. Oropharynx is clear. NECK: Supple, no lymphadenopathy. LUNGS: Clear to auscultation bilaterally. HEART: Regular rate and rhythm. ABDOMEN: Soft, nontender, nondistended. EXTREMITIES: Examination of the right heel demonstrates a palpable osteophyte with bony prominence at her Achilles insertion. She has pain with passive dorsiflexion and active plantarflexion in this area. There is no erythema or warmth. IMPRESSION: Right calcaneal osteophyte Valentina's deformity. PLAN: Right calcaneal osteophyte Valentina's excision. The risks, benefits, options, ramifications and recovery were discussed at length with the patient. She understands and wished to proceed. Job ID: [id number] DocumentID: [id number] Dictated Date: 03/13/2018 13:05:00 Crop Nutrition Scientist Date: 03/13/2018 13:39:13 Dictated By: RONY SAMANIEGO MD
[~2018-03-22] VITALS: Ht 157.5 cm; Wt 138.8 kg
[~2018-03-22 06:10] MED LIST changes: +CHOL200059 PO; +Ferrous Sulfate PO; +MELA1TAB15 PO; +SITA50TA PO
--- OUTSIDE RECORDS SUMMARY | 2018-03-22 06:28 | XMS REPORT | Encounter Summary ---
Author Author [facility] Organization [facility] Address Unknown Phone Unavailable Care Team Providers Care Medical Office Secretary Name Role Phone PCP Unavailable Encounter Details Date Type Department Care Team Description 04/17/2018 Procedure Pass Gastrointenstinal Endoscopy [address] [place] [address] Social History Tobacco Use Types Packs/Day Years Used Date Never Smoker Smokeless Tobacco: Never Used Alcohol Use Drinks/Week oz/Week Comments No Sex Assigned at Date Recorded Not on file as of this encounter Functional Status Functional Status Response Date of Assessment Does the patient have a hearing impairment: No 12/07/2017 Does the patient have a visual impairment: Yes 12/07/2017 Does the patient have impaired ambulation: Yes - "At times i have 2017 trouble due to left knee bone on bone." Does the patient have an activity of daily living No 12/07/2017 (ADL) impairment: Does the patient have an instrumental activity of No 12/07/2017 daily living (IADL) impairment: Cognitive Status Response Date of Assessment Does the patient have a cognitive impairment: No 12/07/2017 as of this encounter Plan of Treatment Date Type Specialty Care Team Description 04/17/2018 Surgery Hernandez Najera MD COLONOSCOPY [address] [place] [address] [phone] 04/17/2018 Procedure Pass 04/17/2018 Hospital Hernandez Najera MD Colon ulcer Encounter [address] [place], [place] [id number] as of this encounter Visit Diagnoses Not on filein this encounter
--- OUTSIDE RECORDS SUMMARY | 2018-03-22 06:28 | XMS REPORT | Clinical Summary ---
Author Author [facility] Organization [facility] Address Unknown Phone Unavailable Care Team Providers Care Database Administrator Name Role Phone Lucrecia Sánchez DO Unavailable Lona Vega MD PCP Hernandez Najera MD [id number] Jessy Montgomery MD 802164 Vitaly Noriega MD [id number] Source Comments Some departments are not documenting in the electronic medical record. If you do not see the information that you expected, contact Release of Information in the Health Information Management department at [phone] for further assistance in locating additional records.[facility] Allergies Active Allergy Reactions Severity Noted Date Comments Adhesive RASH Medium 11/11/2014 Hydromorphone HALLUCINATIONS High 05/21/2015 Erythromycin RASH, NAUSEA AND VOMITING Medium 11/11/2014 Influenza Virus Vaccines SEE COMMENTS Low 11/11/2014 Hospitalized with flu at age 17. Atorvastatin STOMACH UPSET Low 11/11/2014 Morphine HALLUCINATIONS High 05/21/2015 Penicillins RASH Medium 11/11/2014 Tolerates Keflex Sulfa (Sulfonamide HEADACHE, HIVES, RASH Medium 11/11/2014 Antibiotics) Tetanus And Diphtheria HEADACHE, EDEMA Medium 11/11/2014 Toxoids, Adsorbed, Adult Simvastatin STOMACH UPSET Low 11/11/2014 Current Medications Prescription Sig. Disp. Refills Start End Date Status Date levothyroxine (SYNTHROID) Take 100 mcg by mouth Active 100 mcg tablet daily. lisinopril (PRINIVIL, Take 40 mg by mouth Active ZESTRIL) 40 mg tablet daily. sertraline (ZOLOFT) 100 Take 200 mg by mouth Active mg tablet daily. cyanocobalamin (VITAMIN Inject 1,000 mcg to Active B-12, RUBRAMIN) 1,000 area(s) as directed every mcg/mL injection 30 days. MELATONIN PO Take 5 mg by mouth at Active bedtime daily. EZETIMIBE (ZETIA PO) Take 10 mg by mouth Active daily. metFORMIN (GLUCOPHAGE) Take by mouth twice Active 500 mg tablet daily with meals. Take two tabs (1000 mg) by mouth every a.m. And every p.m. FERROUS SULFATE PO Take 65 mg by mouth Active daily. ASCORBATE CALCIUM Take by mouth daily. Active (VITAMIN C PO)Indications: Unknown dose adalimumab(+) (HUMIRA Inject 40 mg under the 1.6 mL 5 02/02/20 Active PEN) 40 mg/0.8 mL skin every 14 days. 18 injection penIndications: Diarrhea, unspecified type, Crohn's disease with complication, unspecified gastrointestinal tract location (HCC) JANUVIA 100 mg tab tablet Take 1 tablet by mouth 01/10/20 Active daily. 18 hyoscyamine (ANASPAZ; Place 1 tablet under 30 tablet 0 02/24/20 Active NULEV; SYMAX FASTABS; tongue every 6 hours as 18 HYOMAX-FT; ED-SPAZ; needed for Cramps. OSCIMIN) 0.125 mg rapid dissolve tablet ergocalciferol (VITAMIN Take 1 capsule by mouth 4 capsule 0 03/07/20 03/29/20 Active D-2) 50,000 unit capsule every 7 days for 4 doses. 18 18 ergocalciferol (vitamin Take 2,000 Units by mouth Active D2) (VITAMIN D PO) daily. SITAGLIPTIN PHOSPHATE Take by mouth daily. 02/22/20 Discontin (JANUVIA PO) 18 ued ergocalciferol (VITAMIN Take 1 capsule by mouth 6 capsule 0 01/27/20 02/29/20 Discontin D-2) 50,000 unit capsule every 7 days. X 6 weeks 18 18 ued ergocalciferol (VITAMIN Take 1 capsule by mouth 4 capsule 0 02/29/20 03/07/20 Discontin D-2) 50,000 unit capsule every 7 days for 4 doses. 18 18 ued sod picosulf-mag Take 1 each by mouth once 2 Bottle 0 03/08/2003/08 ox-citric ac (CLENPIQ) 10 for 1 dose. 18 18 mg-3.5 gram -12 gram/160 mL soln Active Problems Problem Noted Date Colon ulcer 03/16/2018 Overview: Added automatically from request for surgery [id number] History of small bowel obstruction 01/30/2018 Right upper quadrant abdominal pain 01/30/2018 History of cryptosporidiosis 01/30/2018 Dyspepsia 07/29/2017 Overview: Added automatically from request for surgery [id number] Open wound anterior abdominal wall 06/18/2015 Status post partial colectomy 05/09/2015 Small bowel obstruction (HCC) 04/19/2015 Pyuria 03/08/2015 Iron deficiency anemia 03/07/2015 Vitamin B12 deficiency 03/07/2015 Essential hypertension 03/07/2015 Depression 03/07/2015 Colonic mass 03/07/2015 Chronic diarrhea 03/07/2015 Type 2 diabetes mellitus without complication (HCC) 03/07/2015 Melena 03/06/2015 DM (diabetes mellitus) (HCC) 11/11/2014 Hypothyroid 11/11/2014 S/P dsuty 11/11/2014 Encounters Date Type Specialty Care Team Description 03/16/2018 Telephone Gastroenterology Hernandez Najera MD Patient Questions 03/09/2018 Pharmacy Visit 03/08/2018 Office Visit GastroenterHernandez Kelley MD Ulcer, colon (Primary Dx) 03/08/2018 Telephone Hepatology Jessy Montgomery MD Other ( Surgery Clearance) 03/08/2018 Prep for Case GastroenterHernandez Kelley MD Colon ulcer (Primary Dx) 03/07/2018 Telephone GastroenterMichell Ward, Medication Problem SPACE PHYSICIST-RESTAURANT OPERATIONS MANAGER (Vitamin D) 03/07/2018 Refill GastroenterHernandez Kelley MD 03/01/2018 Telephone General Surgery Mercedes Ferguson, camp coordinator 03/01/2018 Telephone Michell Minor, Results SPACE PHYSICIST-RESTAURANT OPERATIONS MANAGER 02/28/2018 Pharmacy Visit 02/28/2018 Pharmacy Visit 02/24/2018 Pharmacy Visit 02/24/2018 Pharmacy Visit 02/24/2018 Orders Only Michell Minor APRN-EZEKIEL 02/21/2018 Telephone Derrell Badillo, MARIA DEL CARMEN Medication Follow-up 02/16/2018 Telephone Gastroenterology Michell Israel, Results SPACE PHYSICIST-RESTAURANT OPERATIONS MANAGER 02/10/2018 Orders Only Gastroenterology Michell Israel, Chronic diarrhea; SPACE PHYSICIST-RESTAURANT OPERATIONS MANAGER Colonic mass; Status post partial colectomy; History of small bowel obstruction; Right upper quadrant abdominal pain; History of cryptosporidiosis 02/08/2018 Telephone General Surgery [employer]/ Insurance Questions (bariatric) 02/02/2018 Telephone Gastroenterology Michell Israel, Results SPACE PHYSICIST-RESTAURANT OPERATIONS MANAGER 02/01/2018 Pharmacy Visit 02/01/2018 Pharmacy Visit 02/01/2018 Pharmacy Visit 01/31/2018 Refill Gastroenterology Hernandez Najera MD Diarrhea, unspecified type; Crohn's disease with complication, unspecified gastrointestinal tract location (HCC) 01/31/2018 Pharmacy Visit 01/31/2018 Telephone Michell Minor, Results SPACE PHYSICIST-RESTAURANT OPERATIONS MANAGER 01/31/2018 Telephone Gastroenterology Michell Israel, Prior Authorization SPACE PHYSICIST-RESTAURANT OPERATIONS MANAGER (Xifaxan) 01/30/2018 Hospital Lab Michell Israel, Vitamin D deficiency, Encounter SPACE PHYSICIST-RESTAURANT OPERATIONS MANAGER unspecified 01/30/2018 Office Visit Michell Minor, Right upper quadrant SPACE PHYSICIST-RESTAURANT OPERATIONS MANAGER abdominal pain (Primary Dx); Chronic diarrhea; Colonic mass; Status post partial colectomy; History of small bowel obstruction; History of cryptosporidiosis; Vitamin D deficiency; Class 3 obesity with body mass index (BMI) of 50.0 to 59.9 in adult, unspecified obesity type, unspecified whether serious comorbidity present (HCC) 01/25/2018 Telephone Gastroenterology Hernandez Najera MD Other 01/23/2018 Telephone GastroenterHernandez Kelley MD Results 01/23/2018 Pharmacy Visit 01/19/2018 Pharmacy Visit 12/27/2017 Pharmacy Visit 12/26/2017 Pharmacy Visit 12/26/2017 Pharmacy Visit 12/23/2017 Pharmacy Visit 12/21/2017 Pharmacy Visit 12/20/2017 Pharmacy Visit from Last 3 Months Immunizations Name Dates [...] Vital Sign Reading Time Taken Blood Pressure 127/58 03/08/2018 11:07 AM CDT Pulse 68 03/08/2018 11:07 AM CDT Temperature 36.7 C (98.1 F) 01/30/2018 10:40 AM CDT Respiratory Rate 16 03/08/2018 11:07 AM CDT Oxygen Saturation 95% 10/19/2017 11:00 AM PARAMEDIC RN Inhaled Oxygen - - Concentration Weight 139.7 kg (308 lb) 03/08/2018 11:07 AM CDT Height 157.5 cm (5' 2") 03/08/2018 11:07 AM CDT Body Mass Index 56.33 03/08/2018 11:07 AM CDT Plan of Treatment Date Type Specialty Care Team Description 04/17/2018 Surgery Hernandez Najera MD COLONOSCOPY [address] [place] [address] [phone] 04/17/2018 Procedure Pass 04/17/2018 Hospital Hernandez Najera MD Colon ulcer Encounter [address] [place] [address] [phone] Health Maintenance Due Date Last Done Comments PHYSICAL (COMPREHENSIVE) 1960 EXAM PERTUSSIS VACCINE 1964 TETANUS VACCINE 1970 CERVICAL CANCER SCREENING 1983 BREAST CANCER SCREENING 1993 SHINGLES VACCINE 2013 INFLUENZA VACCINE 07/10/2018 COLORECTAL CANCER 09/19/2027 09/19/2017, 11/03/2016, 11/03/2016, SCREENING Additional history exists HIV SCREENING Completed 03/07/2015 HEPATITIS C SCREENING Completed 09/28/2017 Implants Implanted Type Area Lead Presser Device Expiration Model / Identifier Date Serial / Lot Knee Replacement Knee Results * HC CULTURE-STOOL (02/24/2018) Specimen Performing Laboratory OTHER OUTSIDE LAB * PANCREATIC ELASTASE, STOOL (02/20/2018) Specimen Performing Laboratory OTHER OUTSIDE LAB * 25-OH VITAMIN D (D2 + D3) (02/20/2018) Component Value Ref Range Vitamin D(25-OH)Total 23.82 (L) Specimen Performing Laboratory Blood OTHER OUTSIDE LAB * CBC AND DIFF (02/20/2018) Only the most recent of 2 results within the time period is included. Component Value Ref Range White Blood Cells 6.31 RBC 4.32 Hemoglobin 13.5 Hematocrit 41.0 MCV 94.9 MCH 31.3 (L) MCHC 32.9 Platelet Count 135 (L) MPV RDW 14.6 Neutrophils 58.5 Absolute Neutrophil Count 3.69 Lymphocytes 28.5 Absolute Lymph Count 1.80 Monocytes 9.4 Absolute Monocyte Count 0.6 Eosinophil 3.3 Absolute Eosinophil Count 0.2 Basophils 0.3 Absolute Basophil Count 0.0 Atypical Lym Metamyelocyte Myelocyte Promyelocyte Blast RBC Morph WBC Morphology Specimen Performing Laboratory Blood OTHER OUTSIDE LAB * COMPREHENSIVE METABOLIC PANEL (02/20/2018) Only the most recent of 2 results within the time period is included. Component Value Ref Range Sodium 143 Potassium 4.3 Chloride 107 CO2 27.0 Blood Urea Nitrogen 14 Creatinine 0.6 Glucose 123 Calcium 9.9 Total Protein 6.4 Total Bilirubin 0.6 Albumin 3.9 Alk Phosphatase 56 AST (SGOT) 30 ALT (SGPT) 21 eGFR Non 105 eGFR 127.26 Anion Gap 13 Specimen Performing Laboratory Blood OTHER OUTSIDE LAB * C DIFFICILE BY PCR (02/01/2018) Specimen Performing Laboratory Feces OTHER OUTSIDE LAB * GIARDIA SCREEN,FECAL (02/01/2018) Specimen Performing Laboratory Feces OTHER OUTSIDE LAB * CRYPTOSPORIDUM,FECAL (02/01/2018) Specimen Performing Laboratory Stool - Feces OTHER OUTSIDE LAB * [facility] (01/30/2018 1:19 PM) Component Value Ref Range Test PROMETHEUS Anser ADA Reference Lab [employer] [facility] Results Ref Lab SHIPPED VIA [employer] PRIORITY OVERNIGHT ON 01/30/2018.RESULTS WILL BE SENT DIRECTLY TO THE ORDERING PHYSICIAN. SEE SUPERVISOR BRIDGES AND BUILDINGS FOR REPORT Specimen Mail SERUM 2 GOLD TOPS Specimen Performing Laboratory REFERENCE LAB * SED RATE (01/30/2018 1:14 PM) Component Value Ref Range Sed Rate -ESR 21 0 - 30 MM/HR Specimen Performing Laboratory Blood [facility] [address] [place] [address] * C REACTIVE PROTEIN (CRP) (01/30/2018 1:14 PM) Component Value Ref Range C-Reactive Protein 0.46 <1.0 MG/DL Specimen Performing Laboratory Blood MAIN LAB [address] [place] [address] * LIPASE (01/30/2018 1:14 PM) Component Value Ref Range Lipase 74 11 - 82 U/L Specimen Performing Laboratory Blood MAIN LAB [address] [place] [address] * AMYLASE (01/30/2018 1:14 PM) Component Value Ref Range Amylase 46 24 - 100 U/L Specimen Performing Laboratory Blood MAIN LAB [address] [place] [address] from Last 3 Months
--- OUTSIDE RECORDS SUMMARY | 2018-03-22 06:28 | XMS REPORT | Encounter Summary ---
Author Author [facility] Organization [facility] Address Unknown Phone Unavailable Care Team Providers Care Patient Care Manager Name Role Phone Lucrecia Sánchez DO Unavailable Lona Vega MD PCP Hernandez Najera MD [id number] Jessy Montgomery MD 294702 Vitaly Noriega MD [id number] Encounter Details Date Type Department Care Team Description 04/17/2018 Surgery Gastrointenstinal Hernandez Najera MD COLONOSCOPY Endoscopy [address] [facility] [address] [facility] [place] [address] [place] [address] [phone] Social History Tobacco Use Types Packs/Day Years [...] 04/17/2018 Surgery Hernandez Najera MD COLONOSCOPY [address] [place] [address] [phone] 04/17/2018 Procedure Pass 04/17/2018 Hospital Hernandez Najera MD Colon ulcer Encounter [address] [place] [address] [phone] as of this encounter Visit Diagnoses Diagnosis Colon ulcer Ulceration of intestine Admitting Diagnoses Diagnosis Colon ulcer - Colon ulcer [K63.3] Ulceration of intestine
--- OUTSIDE RECORDS SUMMARY | 2018-03-22 06:29 | XMS REPORT | Encounter Summary ---
Author Author [facility] Organization [facility] Address Unknown Phone Unavailable Care Team Providers Care Bowling Ball Molder Name Role Phone PCP Unavailable Reason for Visit * Reason Comments Results Encounter Details Date Type Department Care Team Description 03/01/2018 Telephone [facility] Michell Israel, Mekhi Physicians - Internal CAVALRY OFFICER-MEDICAL CLAIMS MANAGER Medicine [address] [facility] [address] [place] [address] [address] [facility] [phone] [place] [address] Social History Tobacco Use Types [...] impairment: No 12/07/2017 as of this encounter Miscellaneous Notes * Telephone Encounter - Veronica Hernandez LPN - 03/01/2018 10:41 AM CDT Outbound call to pt to discuss below. Pt aware low platelet count is being deferred to PCP. Pt reports she spoke with PCP today and pcp advised pt to f/u with GI. Per Dania results encounter 01/23/18 pt re-educated could be possibly due to liver disease and plans at that time were to re-check. Advised pt to further discuss with Dr. Najera at appt next week. Pt verbalized understanding. Routing to Michell to inform of recommendations made to pt. * Telephone Encounter - Veronica Hernandez LPN - 03/01/2018 10:38 AM CDT ----- Message from Michell Israel APRN-MEDICAL CLAIMS MANAGER sent at 02/28/2018 10:15 AM CDT ---- - Normal pancreatic elastase. Negative stool culture. Vitamin D continues to be low, please take 50,000 units of vitamin D weekly for 12 weeks. Start taking 2000 units of vitamin D daily. Recheck vitamin D 06/2018. CMP normal. CBC normal other than persistently low platelets. Please follow-up regarding this with primary care provider. in this encounter Plan of Treatment Date Type Specialty Care Team Description 04/17/2018 Surgery Hernandez Najera MD COLONOSCOPY [address] [place] [address] [phone] 04/17/2018 Procedure Pass 04/17/2018 Hospital Hernandez Najera MD Colon ulcer Encounter [address] [place] [address] [phone] as of this encounter Visit Diagnoses Not on filein this encounter
--- OUTSIDE RECORDS SUMMARY | 2018-03-22 06:29 | XMS REPORT | Encounter Summary ---
Author Author [facility] Organization [facility] Address Unknown Phone Unavailable Care Team Providers Care Lingo Cleaner Name Role Phone Lucrecia Sánchez DO Unavailable Lona Vega MD PCP Hernandez Najera MD [phone] Jessy Montgomery MD [phone] Vitaly Noriega MD [phone] Reason for Visit * Reason Comments Patient Questions Encounter Details Date Type Department Care Team Description 03/16/2018 [facility]ajera MD Patient Questions Physicians - Internal [address] [facility] [place] [address] [address] [phone] [address] [facility] [place] [address] Social History Tobacco Use Types [...] encounter Miscellaneous Notes * Telephone Encounter - Arlen Hernandez RN - 03/16/2018 10:26 AM CDT Pt leaves message reporting that she has not heard anything about scheduling her colonoscopy or an appt with Dr. Mendez. Prep for case for colonoscopy and referral to colorectal surgery are both in place. Provided pt with contact # for endoscopy scheduling and colorectal surgery clinic. in this encounter Plan of Treatment Date Type Specialty Care Team Description 04/17/2018 Surgery Hernandez Najera MD COLONOSCOPY [address] [place] [address] 04/17/2018 Procedure Pass 04/17/2018 Hospital Hernandez Najera MD Colon ulcer Encounter [address] [place] [address] [phone] as of this encounter Visit Diagnoses Not on filein this encounter
--- OUTSIDE RECORDS SUMMARY | 2018-03-22 06:29 | XMS REPORT | Encounter Summary ---
Author Author [facility] Organization [facility] Address Unknown Phone Unavailable Care Team Providers Care Pen Or Pencil Assembly Machine Operator Name Role Phone PCP Unavailable Reason for Visit * Reason Comments Medication Follow-up Encounter Details Date Type Department Care Team Description 02/21/2018 Telephone [facility] Derrell Badillo PHARMD Medication Follow-up [address] [facility] [place] [address] Social History Tobacco Use Types Packs/Day Years [...] encounter Miscellaneous Notes * Telephone Encounter - Derrell Badillo, MARIA DEL CARMEN - 02/21/2018 6:11 PM CDT Formatting of this note may be different from the original. Patient Reassessment: Tumor Necrosis Factor (TNF) Alpha Antagonists Humira (adalimumab) Appropriateness of Therapy Humira (adalimumab) is being continued for the appropriate indication of Crohn' s disease. The regimen of 40 mg subcutaneously every 2 weeks is planned to continue indefinitely which is appropriate for Leena Placido. No renal or hepatic adjustments are required. At this time the there is no planned dose titration. Patient assessments: Subjective clinical assessment: on a scale of 1 to 10, the patient rates they are feeling 3 out of 10 while on treatment. Subjective Quality of Life Measurement: In the past 30 days, Swathi Cummins was able to complete all normal daily activities. Level of disease activity / changes while on therapy. Previously trialed agents:azathioprine, mercaptopurine, budesonide Allergy and/or intolerance medications: azathioprine Current agents:Humira Additional considerations: Patient reports no improvement in the frequency of diarrhea. She will be seeing her provider (Dr. Najera) at the end of the month ( 03/08/18) to discuss additional options. Adverse Effects Swathi Cummins is not experiencing any significant adverse effects to this medication regimen. Adherence Refill history was reviewed with the patient. Swathi Cummins states they are adherent with refills and reports missing 0 doses over the past 4 weeks. The patient was reminded about the refill process and re-educated on the importance of adherence. Swathi Cummins is meeting their goal of adherence with their regimen. Medication Reconciliation A medication history and reconciliation were performed (including prescription medications, supplements, over the counter, and herbal products). The medication list was updated and the patients current medication list is included below. Home Medications Medication Sig adalimumab(+) (HUMIRA PEN) 40 mg/0.8 mL injection pen Inject 40 mg under the skin every 14 days. ASCORBATE CALCIUM (VITAMIN C PO) Take by mouth daily. cyanocobalamin (VITAMIN B-12, RUBRAMIN) 1,000 mcg/mL injection Inject 1,000 mcg to area(s) as directed every 30 days. ergocalciferol (VITAMIN D-2) 50,000 unit capsule Take 1 capsule by mouth every 7 days. X 6 weeks EZETIMIBE (ZETIA PO) Take 10 mg by mouth daily. FERROUS SULFATE PO Take 65 mg by mouth daily. JANUVIA 100 mg tab tablet Take 1 tablet by mouth daily. levothyroxine (SYNTHROID) 100 mcg tablet Take 100 mcg by mouth daily. lisinopril (PRINIVIL, ZESTRIL) 40 mg tablet Take 40 mg by mouth daily. MELATONIN PO Take 5 mg by mouth at bedtime daily. metFORMIN (GLUCOPHAGE) 500 mg tablet Take by mouth twice daily with meals. Take two tabs (1000 mg) by mouth every a.m. And every p.m. sertraline (ZOLOFT) 100 mg tablet Take 200 mg by mouth daily. Drug-drug and drug-food interactions between the patients specialty medication and their medication list were assessed and reviewed with the patient. Their regimen can be taken with or without food. No new significant drug-drug or drug-food interactions were identified. The patient was instructed to speak with their health care provider before starting any new drug, including prescription or over the counter, natural / herbal products, or vitamins. Allergies Allergies Allergen Reactions Dilaudid [Hydromorphone] HALLUCINATIONS Morphine HALLUCINATIONS Adhesive RASH E-Mycin [Erythromycin] RASH and NAUSEA AND VOMITING Pcn [Penicillins] RASH Tolerates Keflex Sulfa (Sulfonamide Antibiotics) HEADACHE, HIVES and RASH Tetanus And Diphtheria Toxoids, Adsorbed, Adult HEADACHE and EDEMA Flu Vaccine [Influenza Virus Vaccines] SEE COMMENTS Hospitalized with flu at age 17. Lipitor [Atorvastatin] STOMACH UPSET Zocor [Simvastatin] STOMACH UPSET status potential was reviewed with the patient. As the patient is a female not of child-bearing potential, education was not applicable. Risk Evaluation and Mitigation Strategy (REMS) Assessment No REMS is required for this medication. The patient was encouraged to call with questions. Followup Plan Re-assessment has been completed. The patient will be reassessed in 6 months to check for improvement. Derrell Badillo PHARMD in this encounter Plan of Treatment Date Type Specialty Care Team Description 04/17/2018 Surgery Hernandez Najera MD COLONOSCOPY [address] [place] [address] [phone] 04/17/2018 Procedure Pass 04/17/2018 Hospital Hernandez Najera MD Colon ulcer Encounter [address] [place] [address] [phone] as of this encounter Visit Diagnoses Not on filein this encounter
--- OUTSIDE RECORDS SUMMARY | 2018-03-22 06:29 | XMS REPORT | Encounter Summary ---
Author Author [facility] Organization [facility] Address Unknown Phone Unavailable Care Team Providers Care Oil Paint Shader Name Role Phone PCP Unavailable Encounter Details Date Type Department Care Team Description 02/24/2018 Orders Only [facility] Michell Israel, Physicians - Internal TRACK CAR OPERATOR-PAINTER INTERIOR FINISH Medicine [address] [facility] [address] [place] [address] [address] [facility] [phone] [place] [address] Social History Tobacco Use Types [...] 04/17/2018 Surgery Hernandez Najera MD COLONOSCOPY [address] [place], [place] [address] 04/17/2018 Procedure Pass 04/17/2018 [facility] Hernandez Najera MD Colon ulcer Encounter [address] [place] [address] [phone] as of this encounter Results * HC CULTURE-STOOL (02/24/2018) Specimen Performing Laboratory OTHER OUTSIDE LAB * CBC AND DIFF (02/20/2018) Component Value Ref Range White Blood Cells [...] OUTSIDE LAB * COMPREHENSIVE METABOLIC PANEL (02/20/2018) Component Value Ref Range Sodium 143 Potassium 4.3 Chloride 107 CO2 27.0 Blood Urea Nitrogen 14 Creatinine 0.6 Glucose 123 Calcium 9.9 Total Protein 6.4 Total Bilirubin 0.6 Albumin 3.9 Alk Phosphatase 56 AST (SGOT) 30 ALT (SGPT) 21 eGFR Non 105 eGFR 127.26 Anion Gap 13 Specimen Performing Laboratory Blood OTHER OUTSIDE LAB * 25-OH VITAMIN D (D2 + D3) (02/20/2018) Component Value Ref Range Vitamin D(25-OH)Total 23.82 (L) Specimen Performing Laboratory Blood OTHER OUTSIDE LAB * PANCREATIC ELASTASE, STOOL (02/20/2018) Specimen Performing Laboratory OTHER OUTSIDE LAB in this encounter Visit Diagnoses Not on filein this encounter
--- OUTSIDE RECORDS SUMMARY | 2018-03-22 06:29 | XMS REPORT | Encounter Summary ---
Author Author [facility] Organization [facility] Address Unknown Phone Unavailable Care Team Providers Care Author Agent Name Role Phone PCP Unavailable Reason for Visit * Reason Comments Other Surgery Clearance Encounter Details Date Type Department Care Team Description 03/08/2018 Telephone Center for Jessy Montgomery MD Other ( Surgery Clearance) Transplantation-Hepatolog [address] [facility] [place] [address] [address] [facility] [phone] [facility] [place] [address] Social History Tobacco Use Types [...] encounter Miscellaneous Notes * Telephone Encounter - Juan Singh RN - 03/09/2018 4:04 PM CDT Discussed planned surgery with Dr. Montgomery who stated surgery was fine from liver perspective. Advised pt. * Telephone Encounter - Tricia Villanueva - 03/09/2018 10:28 AM CDT Pt called requesting to speak with NC regarding surgery clearance. * Telephone Encounter - Mi Clement - 03/08/2018 1:23 PM CDT Pt called, she is to have heel spur surgery 03/22 but her local GI requested she contact our office to make sure there are no contraindications from hepatology for this surgery. Pt requested a return call. in this encounter Plan of Treatment Date Type Specialty Care Team Description 04/17/2018 Surgery Hernandez Najera MD COLONOSCOPY [address] [place] [address] [phone] 04/17/2018 Procedure Pass 04/17/2018 Hospital Hernandez Najera MD Colon ulcer Encounter [address] [place] [address] [phone] as of this encounter Visit Diagnoses Not on filein this encounter
--- OUTSIDE RECORDS SUMMARY | 2018-03-22 06:29 | XMS REPORT | Encounter Summary ---
Author Author [facility] Organization [facility] Address Unknown Phone Unavailable Care Team Providers Care Urban Gardening Specialist Name Role Phone PCP Unavailable Reason for Visit * Reason Comments Referral Encounter Details Date Type Department Care Team Description 03/01/2018 Telephone [facility] Mercedes Ferguson RN Referral CLINIC [address] [place] [address] Social History Tobacco Use Types Packs/Day Years [...] encounter Miscellaneous Notes * Telephone Encounter - Kimberly Briggs - 03/01/2018 3:58 PM CDT Called patient to let her know that she is a candidate for bariatric surgery but must meet requirements prior to being seen. Requirements emailed to her. in this encounter Plan of Treatment Date Type Specialty Care Team Description 04/17/2018 Surgery Hernandez Najera MD COLONOSCOPY [address] [place] [address] [phone] 04/17/2018 Procedure Pass 04/17/2018 [facility] Hernandez Najera MD Colon ulcer Encounter [address] [place] [address] [phone] as of this encounter Visit Diagnoses Not on filein this encounter
--- OUTSIDE RECORDS SUMMARY | 2018-03-22 06:29 | XMS REPORT | Encounter Summary ---
Author Author [facility] Organization [facility] Address Unknown Phone Unavailable Care Team Providers Care Lube Worker Name Role Phone PCP Unavailable Encounter Details Date Type Department Care Team Description 04/17/2018 [facility] Gastrointenstinal Hernandez Najera MD Colon ulcer Encounter Endoscopy [address] [facility] [address] [place] [address] [place] [address] [phone] Social History Tobacco Use Types Packs/Day Years [...] 04/17/2018 Surgery Hernandez Najera MD COLONOSCOPY [address] [place] [address] [phone] 04/17/2018 Procedure Pass 04/17/2018 Hospital Hernandez Najera MD Colon ulcer Encounter [address] [place] [address] [phone] as of this encounter Visit Diagnoses Diagnosis Colon ulcer Ulceration of intestine Admitting Diagnoses Diagnosis Colon ulcer - Colon ulcer [K63.3] Ulceration of intestine
--- OUTSIDE RECORDS SUMMARY | 2018-03-22 06:29 | XMS REPORT | Encounter Summary ---
Author Author [facility] Organization [facility] Address Unknown Phone Unavailable Care Team Providers Care Multi Purpose Machine Operator Name Role Phone Lucrecia Sánchez DO Unavailable Lona Vega MD PCP Hernandez N[place]era MD [id number] Jessy Montgomery MD 288346 Vitaly Noriega MD [id number] Encounter Details Date Type Department Care Team Description 03/08/2018 Prep for Case [facility] Hernandez Najera MD Colon ulcer (Primary Dx) Physicians - Internal [address] [facility] [place] [address] [phone] [place] [address] [phone] Social History Tobacco Use Types Packs/Day Years [...] 04/17/2018 Surgery Hernandez Najera MD COLONOSCOPY [address] [place] [address] [phone] 04/17/2018 Procedure Pass 04/17/2018 Hospital Hernandez Najera MD Colon ulcer Encounter [address] [place] [address] [phone] as of this encounter Visit Diagnoses Diagnosis Colon ulcer - Primary Ulceration of intestine
--- OUTSIDE RECORDS SUMMARY | 2018-03-22 06:29 | XMS REPORT | Encounter Summary ---
Author Author [facility] Organization [facility] Address Unknown Phone Unavailable Care Team Providers Care Slurry Plant Operator Name Role Phone Lucrecia Sánchez DO Unavailable Lona Vega MD PCP Hernandez Najera MD [id number] Jessy Montgomery MD 169661 Vitaly Noriega MD [id number] Reason for Visit * Reason Comments Medication Refill Encounter Details Date Type Department Care Team Description 03/07/2018 Refill [facility] Hernandez Najera MD Physicians - Internal [address] [facility] [place] [address] [address]LO[address] [phone] [address] [facility] [place] [address] Social History Tobacco Use Types [...] 04/17/2018 Surgery Hernandez Najera MD COLONOSCOPY [address] [place] [address] [phone] 04/17/2018 Procedure Pass 04/17/2018 Hospital Hernandez Najera MD Colon ulcer Encounter [address] [place] [address] [phone] as of this encounter Visit Diagnoses Not on filein this encounter
--- OUTSIDE RECORDS SUMMARY | 2018-03-22 06:29 | XMS REPORT | Encounter Summary ---
Author Author [facility] Organization [facility] Address Unknown Phone Unavailable Care Team Providers Care Curator Of Manuscripts Name Role Phone PCP Unavailable Reason for Referral * Consult, Test & Treat Status Reason Specialty Diagnoses / Referred By Referred To Procedures Contact Contact No Auth Needed Specialty Colon and Rectal Diagnoses Hernandez Najera MD [place], John H, Services Surgery / General Ulcer, colon [address] [facility] Required Surgery [facility] [address] [place] [address] [place], [place] Phone: [phone] Phone: Scheduling Instructions Please schedule patient with Dr. Mendez. Reason for Visit * Reason Comments Crohn's Disease follow up on Humira Encounter Details Date Type Department Care Team Description 03/08/2018 Office Visit [facility] Hernandez Najera MD Ulcer, colon (Primary Dx) Physicians - Internal [address] [facility] [place] [address] [phone] [place] [address] [phone] Social History Tobacco Use Types Packs/Day Years Used Date Never Smoker Smokeless Tobacco: Never Used Alcohol Use Drinks/Week oz/Week Comments No Sex Assigned at Date Recorded Not on file as of this encounter Last Filed Vital Signs Vital Sign Reading Time Taken Blood Pressure 127/58 03/08/2018 11:07 AM CDT Pulse 68 03/08/2018 11:07 AM CDT Temperature - - Respiratory Rate 16 03/08/2018 11:07 AM CDT Oxygen Saturation - - Inhaled Oxygen - - Concentration Weight 139.7 kg (308 lb) 03/08/2018 11:07 AM CDT Height 157.5 cm (5' 2") 03/08/2018 11:07 AM CDT Body Mass Index 56.33 03/08/2018 11:07 AM CDT in this encounter Functional Status Functional Status Response [...] impairment: No 12/07/2017 as of this encounter Instructions * Patient Instructions - Jagruti Goel RN - 03/08/2018 11:[address] Najera is recommending: A colonoscopy; you have been given prep instructions and a Clenpiq prep kit has been provided for you. Colorectal Surgery consult If you have any questions or concerns related to your care please contact VARINDER Chand via [employer] ([employer]) or @ [phone]. in this encounter Progress Notes * Hernandez Najera MD - 03/08/2018 11:00 AM CDT Formatting of this note may be different from the original. Date of Service: 03/08/2018 Subjective: Swathi Cummins is a 62 y.o. female. History of Present Illness Follow-up visit after 5 months of treatment with Humira for presumptive diagnosis of anastomotic ulcers/Crohn disease at TI? PMH of DM type 2, Anemia, PUD, and ulceration TI suggestive of "Crohn disease" wiwu has been treated with 5 ASA, Imuran, Entocort and is now on Humira returns to the clinic with diarrhea, abdominal pain, and abdominal tenderness. She is still complaining of 4-6 loose, unformed, nonbloody bowel movement a day. Recent treatment with Xifaxan for possible diagnosis of the small intestinal bacterial overgrowth, did not have resolved diarrhea. Patient was seen by SCOTT He for diarrhea, instructed to take Imodium, Imodium does not help with diarrhea. She is here today with her daughter and is concerning about bariatric surgery. She received a phone call from bariatric surgery division regarding may be qualified for bariatric surgery and is willing to proceed. History of biopsy-proven chronic liver disease/cirrhosis (compensated) with steatohepatitis, follow-up with Jessy Russo MD at Hepatology clinic. No antibody to Humira & level is therapeutic She told me she is going to have knee surgery in 2 weeks. Review of Systems Constitutional: Positive for fatigue. HENT: Positive for sinus pressure. Respiratory: Positive for apnea. Gastrointestinal: Positive for abdominal distention, abdominal pain and diarrhea. Genitourinary: Positive for frequency. Musculoskeletal: Positive for arthralgias, back pain and joint swelling. Neurological: Positive for headaches. Hematological: Bruises/bleeds easily. All other systems reviewed and are negative. Past Medical History: Diagnosis Date Anemia Arthritis Essential hypertension Hypothyroidism Sleep apnea Stomach ulcer Thyroid nodule Type II diabetes mellitus (HCC) Past Surgical History: Procedure Laterality Date DE COLONOSCOPY FLX DX W/COLLJ SPEC WHEN PFRMD N/A 02/26/2016 COLONOSCOPY performed by Tunde Diaz MD at ENDO/GI COLONOSCOPY 02/26/2016 COLONOSCOPY BIOPSY performed by Tunde Diaz MD at ENDO/GI DE COLONOSCOPY FLX DX W/COLLJ SPEC WHEN PFRMD N/A 11/03/2016 COLONOSCOPY performed by DONNY Terrazas at ENDO/GI DE COLONOSCOPY W/BIOPSY SINGLE/MULTIPLE N/A 11/03/2016 COLONOSCOPY BIOPSY performed by DONNY Terrazas at ENDO/GI COLONOSCOPY N/A 09/19/2017 COLONOSCOPY performed by Hernandez Najera MD at ENDO/GI UPPER GASTROINTESTINAL ENDOSCOPY N/A 09/19/2017 ESOPHAGOGASTRODUODENOSCOPY performed by Hernandez Najera MD at ENDO/GI CHOLECYSTECTOMY COLONOSCOPY HAND SURGERY Left First of December HX APPENDECTOMY HX ENDOSCOPY HX HYSTERECTOMY HX ROTATOR CUFF REPAIR Right KNEE REPLACEMENT REVISION TOTAL KNEE ARTHROPLASTY Right THYROIDECTOMY Family History Problem Relation Age of Onset Diabetes Mother Hypertension Mother Stroke Mother Heart Disease Father Diabetes Sister Heart Disease Brother Social History Social History Marital status: Spouse name: N/A Number of children: N/A Years of education: N/A Social History Main Topics Smoking status: Never Smoker Smokeless tobacco: Never Used Alcohol use No Drug use: No Sexual activity: Not on file Other Topics Concern Not on file Social History Narrative No narrative on file Objective: adalimumab(+) (HUMIRA PEN) 40 mg/0.8 mL injection pen Inject 40 mg under the skin every 14 days. ASCORBATE CALCIUM (VITAMIN C PO) Take by mouth daily. cyanocobalamin (VITAMIN B-12, RUBRAMIN) 1,000 mcg/mL injection Inject 1,000 mcg to area(s) as directed every 30 days. ergocalciferol (VITAMIN D-2) 50,000 unit capsule Take 1 capsule by mouth every 7 days for 4 doses. ergocalciferol (vitamin D2) (VITAMIN D PO) Take 2,000 Units by mouth daily. EZETIMIBE (ZETIA PO) Take 10 mg by mouth daily. FERROUS SULFATE PO Take 65 mg by mouth daily. hyoscyamine (ANASPAZ; NULEV; SYMAX FASTABS; HYOMAX-FT; ED-SPAZ; OSCIMIN) 0.125 [address] dissolve tablet [address] 1 tablet under tongue every 6 hours as needed for Cramps. JANUVIA 100 mg tab tablet Take 1 [...] tablet Take 200 mg by mouth daily. Vitals: 03/08/18 1107 BP: 127/58 Pulse: 68 Resp: 16 Weight: (!) 139.7 kg (308 lb) Height: 157.5 cm (62") Body mass index is 56.33 kg/m. Physical Exam Constitutional: She is oriented to person, place, and time. She appears well- developed and well-nourished. Neurological: She is alert and oriented to person, place, and time. Psychiatric: She has a normal mood and affect. Her behavior is normal. Assessment and Plan: Chronic diarrhea: History of TI ulceration, polyps status post end-to-side ileocolonic anastomosis, persistent anastomotic ulcer suggestive for Crohn disease, nonresponsive to 5-ASA, Imuran, Humira. Given the fact of recent colonoscopy and a stricture at anastomotic site with persistent ulceration, I do think that might be a component of ischemic anastomotic ulcer, Crohn disease still in differential diagnosis although after all treatment is less likely. I would refer to colorectal surgery (per patient's preference Dr. Tunde Mendez ) as second opinion regarding reoperation. Repeat colonoscopy with TI intubation and biopsy, to evaluate endoscopic healing after 5 months treatment with Humira. Obesity complicated with diabetes and fatty liver:Bariatric surgery: Patient will be followed in bariatric medicine. Elective surgery regarding knee surgery: I discussed in detail with patient and her daughter regarding elective surgery with history of compensated cirrhosis and portal hypertension and hypersplenism (thrombocytopenia) this need to be very carefully reviewed by hepatology (Jessy Hale) regarding the preoperation evaluation. Thrombocytopenia: May be secondary to portal hypertension, splenomegaly/ hypersplenism in context of chronic liver disease. Nutritional status: Supplemental vitamin D, B12 for history of TI resection, has end-to-side ileocolonic anastomosis. Patient will be seen in GI clinic after all test done. Plan of care were discussed in detail with patient and her daughter, they both verbalized understanding and agreed. Total face to face time spent with patient: 30 minutes with >50% of that time spent counseling the patient on medications, prior study results related to symptoms, differential diagnosis, and options regarding the plan of care. Thank you very much for the consult, and for allowing me to participate in this patient's care. This note was in part completed with [employer], a voice recognition software. Some grammatical errors may have occurred. If you have concerns,please contact my office for clarification. in this encounter Plan of Treatment Date Type Specialty Care Team Description 04/17/2018 Surgery Hernandez Najera MD COLONOSCOPY [address] [place] [address] [phone] 04/17/2018 Procedure Pass 04/17/2018 Hospital Hernandez Najera MD Colon ulcer Encounter [address] [place] [address] [phone] Name Priority Associated Diagnoses Order Schedule AMB REFERRAL TO COLORECTAL SURGERY Routine Ulcer, colon Ordered: 2017 as of this encounter Visit Diagnoses Diagnosis Ulcer, colon - Primary Ulceration of intestine
--- OUTSIDE RECORDS SUMMARY | 2018-03-22 06:29 | XMS REPORT | Encounter Summary ---
Author Author [facility] Organization [facility] Address Unknown Phone Unavailable Care Team Providers Care Business Systems Architect Name Role Phone Lucrecia Sánchez DO Unavailable Lona Vega MD PCP Hernandez Najera MD [phone] Jessy Montgomery MD 180326 Vitaly Noriega MD [phone] Encounter Details Date Type Department Care Team Description 02/28/2018 Pharmacy Visit [facility] [address] [place], [place] [phone] Social History Tobacco Use Types Packs/Day Years [...] 04/17/2018 Surgery Hernandez Najera MD COLONOSCOPY [address] [place] [address] [phone] 04/17/2018 Procedure Pass 04/17/2018 Hospital Hernandez Najera MD Colon ulcer Encounter [address] [place] [address] [phone] as of this encounter Visit Diagnoses Not on filein this encounter
--- OUTSIDE RECORDS SUMMARY | 2018-03-22 06:29 | XMS REPORT | Encounter Summary ---
Author Author [facility] Organization [facility] Address Unknown Phone Unavailable Care Team Providers Care Bunch Maker Hand Name Role Phone Lucrecia Sánchez DO Unavailable Lona Vega MD PCP Hernandez Najera MD [phone] Jessy Montgomery MD [id number] Vitaly Noriega MD [id number] Encounter Details Date Type Department Care Team Description 03/09/2018 Pharmacy Visit [facility] [address] [place], [place] [phone] Social History Tobacco Use Types Packs/Day Years [...] 04/17/2018 Surgery Hernandez Najera MD COLONOSCOPY [address] [place] [address] [phone] 04/17/2018 Procedure Pass 04/17/2018 Hospital Hernandez Najera MD Colon ulcer Encounter [address] [place] [address] [phone] as of this encounter Visit Diagnoses Not on filein this encounter
--- OUTSIDE RECORDS SUMMARY | 2018-03-22 06:29 | XMS REPORT | Encounter Summary ---
Author Author [facility] Organization [facility] Address Unknown Phone Unavailable Care Team Providers Care Aircraft Engine Assembler Name Role Phone Lucreica Sánchez DO Unavailable Lona Vega MD PCP Hernandez Najera MD [phone] Jessy Montgomery MD [id number] Vitaly Noriega MD [phone] Encounter Details Date Type Department Care Team Description 02/24/2018 Pharmacy Visit [facility] [id number] [place] [address] Social History Tobacco Use Types Packs/Day Years [...] Team Description 04/17/2018 Surgery Hernandez Najera MD [facility] [address] [place] [address] [phone] 04/17/2018 Procedure Pass 04/17/2018 [facility] Hernandez Najera MD Colon ulcer Encounter [address] [place] [address] [phone] as of this encounter Visit Diagnoses Not on filein this encounter
--- OUTSIDE RECORDS SUMMARY | 2018-03-22 06:29 | XMS REPORT | Encounter Summary ---
Author Author [facility] Organization [facility] Address Unknown Phone Unavailable Care Team Providers Care Trip Rider Name Role Phone PCP Unavailable Reason for Visit * Reason Comments Medication Problem Vitamin D Encounter Details Date Type Department Care Team Description 03/07/2018 Telephone [facility] Medication Problem Physicians - Internal ROLLING MILL OPERATOR HELPER-CONCRETE CURER (Vitamin D) Medicine [address] [facility] [address] [place] [address] [address] [facility] [phone] [place] [address] Social History Tobacco Use Types [...] Telephone Encounter - Arlen Hernandez RN - 03/07/2018 12:03 PM CDT Script sent to [facility] in [place], [place]. Pt notified. No further questions or concerns. * Telephone Encounter - Arlen Hernandez, RN - 03/07/2018 10:55 AM CDT Pt leaves message reporting that she called her local pharmacy and they have not received the Vitamin D prescription. Outgoing call to pt. LIZZETH advising that script for Vitamin D was sent to [facility] on 02/28. Requested call back with preferred pharm information. in this encounter Plan of Treatment Date Type Specialty Care Team Description 04/17/2018 Surgery Hernandez Najera MD COLONOSCOPY [address] [place] [address] [phone] 04/17/2018 Procedure Pass 04/17/2018 Hospital Hernandez Najera MD Colon ulcer Encounter [address] [place], [place] [phone] as of this encounter Visit Diagnoses Not on filein this encounter
--- OUTSIDE RECORDS SUMMARY | 2018-03-22 06:29 | XMS REPORT | Encounter Summary ---
Author Author [facility] Organization [facility] Address Unknown Phone Unavailable Care Team Providers Care Middle School Librarian Name Role Phone Lucrecia Sánchez DO Unavailable Lona Vega MD PCP [place] Najera MD [phone] Jessy Montgomery MD [phone] Vitaly Noriega MD [phone] Encounter Details Date Type Department Care Team Description 02/24/2018 Pharmacy Visit [facility] [id number] [place] [address] Social History Tobacco Use Types Packs/Day Years [...] Team Description 04/17/2018 Surgery Hernandez Najera MD [facility] [address] [place] [address] [phone] 04/17/2018 Procedure Pass 04/17/2018 Hospital Hernandez Najera MD Colon ulcer Encounter [address] [place] [address] [phone] as of this encounter Visit Diagnoses Not on filein this encounter
--- OUTSIDE RECORDS SUMMARY | 2018-03-22 06:29 | XMS REPORT | Encounter Summary ---
Author Author [facility] Organization [facility] Address Unknown Phone Unavailable Care Team Providers Care Faculty Research Assistant Name Role Phone Lucrecia Sánchez DO Unavailable Lona Vega MD PCP Hernandez Najera MD [phone] Jessy Montgomery MD 812691 Vitaly Noriega MD [phone] Encounter Details Date Type Department Care Team Description 02/28/2018 Pharmacy Visit [facility] [id number] [place] [address] Social History Tobacco Use Types Packs/Day Years [...] Team Description 04/17/2018 Surgery Hernandez Najera MD [facility] [address] [place] [address] [phone] 04/17/2018 Procedure Pass 04/17/2018 Hospital Hernandez Najera MD Colon ulcer Encounter [address] [place] [address] [phone] as of this encounter Visit Diagnoses Not on filein this encounter
[2018-03-22 06:30] VITALS: BP 167/79
--- OUTSIDE RECORDS SUMMARY | 2018-03-22 06:30 | XMS REPORT | Encounter Summary ---
Author Author [facility] Organization [facility] Address Unknown Phone Unavailable Care Team Providers Care Senior Principal Architect Name Role Phone PCP Unavailable Reason for Visit * Reason Comments Financial/Insurance bariatric Questions Encounter Details Date Type Department Care Team Description 02/08/2018 Telephone [facility]-Sheri Ann Financial/Insurance CLINIC Questions (bariatric) [address] [place] [address] Social History Tobacco Use Types Packs/Day Years [...] encounter Miscellaneous Notes * Telephone Encounter - Sheri Dye - 02/08/2018 12:33 PM CDT MEDICARE A&B - 2018 BENEFIT SUMMARY: 1834A EFF DATE 02/07/15 PART A: DAYS REFRESH AFTER 60 CONSECUTIVE OUTPT DAYS DAYS 1-60 $1340 DEDUCTIBLE DAYS 61-90 $335/DAY COPAY DAYS 91-150 (USING ANY LIFETIME RESERVE DAYS) $670DAY COPAY DAYS > 150 PT PORTION 100%; after a 3-day minimum medically necessary inpatient hospital stay for a related illness or injury. PART A/ SNF BENEFITS: IN 2018: DAYS 1-20 PT PORTION $0; DAYS 21-100 $167.50/DAY COPAY; DAYS > 100 PT PORTION 100% PART B IN 2018: DEDUCTIBLE $183 WITH 80% REIMBURSEMENT OF ALLOWABLE, NO OUT OF POCKET MAXIMUM MEDICARE WILL PAY FOR DRUGS INFUSED THROUGH AN ITEM OF DME, LIKE AN INFUSION PUMP, OR DRUGS GIVEN BY A NEBULIZER WHEN GIVEN BY A LICENSED MEDICAL PROVIDER. PART B WILL COVER IMMUNOSUPPRESSIVE DRUGS IF COVERED THE TRANSPLANT, EVEN SECONDARY PAYER No Case Management, No transplant Network, No prior authorizations, No benefit Auth required: Y/N NO CPT/HCPCS: [id number] Name of drug/procedure: LAPOSCOPIC BYPASS GASTRIC SLEEVE in this encounter Plan of Treatment Date Type Specialty Care Team Description 04/17/2018 Surgery Hernandez Najera MD COLONOSCOPY [address] [place] [address] [phone] 04/17/2018 Procedure Pass 04/17/2018 Hospital Hernandez Najera MD Colon ulcer Encounter [address] [place] [address] [phone] as of this encounter Visit Diagnoses Not on filein this encounter
--- OUTSIDE RECORDS SUMMARY | 2018-03-22 06:30 | XMS REPORT | Encounter Summary ---
Author Author [facility] Organization [facility] Address Unknown Phone Unavailable Care Team Providers Care Refinery Superintendent Name Role Phone PCP Unavailable Reason for Visit * Reason Comments Prior Authorization Xifaxan Encounter Details Date Type Department Care Team Description 01/31/2018 Telephone [facility] Michell Israel, Prior Authorization Physicians - Internal FOREMAN OR SUPERVISOR AND OPERATOR-LEAD COOK (Xifaxan) Medicine [address] [facility] [address] [place] [address] [address] [facility] [phone] [place] [address] Social History Tobacco Use Types [...] encounter Miscellaneous Notes * Telephone Encounter - Suyapa Dobbins - 01/31/2018 1:19 PM CDT PA APPROVED 11/02/2017-01/31/2019 * Telephone Encounter - Suyapa Dobbins - 01/31/2018 12:29 PM CDT PA submitted for Xifaxan via covermymeds kebede: [email or web address] Waiting approval/denial in this encounter Plan of Treatment Date Type Specialty Care Team Description 04/17/2018 Surgery Hernandez Najera MD COLONOSCOPY [address] [place] [address] [phone] 04/17/2018 Procedure Pass 04/17/2018 Hospital Hernandez Najera MD Colon ulcer Encounter [address] [place] [address] as of this encounter Visit Diagnoses Not on filein this encounter
--- OUTSIDE RECORDS SUMMARY | 2018-03-22 06:30 | XMS REPORT | Encounter Summary ---
Author Author [facility] Organization [facility] Address Unknown Phone Unavailable Care Team Providers Care Marine Diesel Technician Name Role Phone Lucrecia Sánchez DO Unavailable Lona Vega MD PCP [place] Najera MD [id number] Jessy Montgomery MD [id number] Vitaly Noriega MD [id number] Encounter Details Date Type Department Care Team Description 01/31/2018 Pharmacy Visit [facility] [id number] [place] [address] Social History Tobacco Use Types Packs/Day Years [...] Team Description 04/17/2018 Surgery Hernandez Najera MD [facility] [address] [place] [address] [phone] 04/17/2018 Procedure Pass 04/17/2018 Hospital Hernandez Najera MD Colon ulcer Encounter [address] [place] [address] [phone] as of this encounter Visit Diagnoses Not on filein this encounter
--- OUTSIDE RECORDS SUMMARY | 2018-03-22 06:30 | XMS REPORT | Encounter Summary ---
Author Author [facility] Organization [facility] Address Unknown Phone Unavailable Care Team Providers Care Electoral Officer Name Role Phone Lucrecia Sánchez DO Unavailable Lona Vega MD PCP Hernandez Najera MD [id number] Jessy Montgomery MD [id number] Vitaly Noriega MD [id number] Encounter Details Date Type Department Care Team Description 02/01/2018 Pharmacy Visit [facility] [id number] [place] [address] Social History Tobacco Use Types Packs/Day Years [...] Team Description 04/17/2018 Surgery Hernandez Najera MD [facility] [address] [place] [address] [phone] 04/17/2018 Procedure Pass 04/17/2018 Hospital Hernandez Najera MD Colon ulcer Encounter [address] [place] [address] [phone] as of this encounter Visit Diagnoses Not on filein this encounter
--- OUTSIDE RECORDS SUMMARY | 2018-03-22 06:30 | XMS REPORT | Encounter Summary ---
Author Author [facility] Organization [facility] Address Unknown Phone Unavailable Care Team Providers Care Hoop Maker Helper Machine Name Role Phone PCP Unavailable Encounter Details Date Type Department Care Team Description 02/10/2018 Orders Only [facility] Lindy Michell, Chronic diarrhea; Physicians - Internal INFANT ROOM TEACHER-MATERIALS COORDINATOR Colonic mass; Medicine [address] [facility] Status post partial [address] [address] colectomy; [address] [employer] [facility] [phone] History of small bowel OFFICE [facility] obstruction; [place], [place] Right upper quadrant [phone] abdominal pain; [phone] History of cryptosporidiosis Social History Tobacco Use Types Packs/Day Years [...] 04/17/2018 Surgery Hernandez Najera MD COLONOSCOPY [address] [place] [address] [phone] 04/17/2018 Procedure Pass 04/17/2018 Hospital Hernandez Najera MD Colon ulcer Encounter [address] [place] [address] [phone] as of this encounter Results * CRYPTOSPORIDUM,FECAL (02/01/2018) Specimen Performing Laboratory Stool - Feces OTHER OUTSIDE LAB * GIARDIA SCREEN,FECAL (02/01/2018) Specimen Performing Laboratory Feces OTHER OUTSIDE LAB * C DIFFICILE BY PCR (02/01/2018) Specimen Performing Laboratory Feces OTHER OUTSIDE LAB in this encounter Visit Diagnoses Diagnosis Chronic diarrhea Diarrhea Colonic mass Other specified disorder of intestines Status post partial colectomy Other postprocedural status History of small bowel obstruction Personal history of other diseases of digestive system Right upper quadrant abdominal pain Abdominal pain, right upper quadrant History of cryptosporidiosis Personal history of other infectious and parasitic disease
--- OUTSIDE RECORDS SUMMARY | 2018-03-22 06:30 | XMS REPORT | Encounter Summary ---
Author Author [facility] Organization [facility] Address Unknown Phone Unavailable Care Team Providers Care Steward/Stewardess Third Class Name Role Phone PCP Unavailable Reason for Visit * Reason Comments Results Encounter Details Date Type Department Care Team Description 02/02/2018 Telephone [facility] Michell Israel, Mekhi Physicians - Internal SALES FLOOR MANAGER-APPLICATION INTERNSHIP Medicine [address] [facility] [address] [place] [address] [address] [facility] MED [phone] [address] Social History Tobacco Use Types [...] Telephone Encounter - Veronica Hernandez LPN - 02/07/2018 12:16 PM CDT Spoke with pt regarding below results. Pt verbalized understanding. Advised pt stool studies still pending. * Telephone Encounter - Veronica Hernandez LPN - 02/07/2018 11:59 AM CDT ----- Message from Michell Israle APRN-APPLICATION INTERNSHIP sent at 02/02/2018 12:42 PM CDT ---- - Serum adalimumab level 11. No antibodies. in this encounter Plan of Treatment Date Type Specialty Care Team Description 04/17/2018 Surgery Hernandez Najera MD COLONOSCOPY [address] [place] [address] [phone] 04/17/2018 Procedure Pass 04/17/2018 Hospital Hernandez Najera MD Colon ulcer Encounter [address] [place] [address] as of this encounter Visit Diagnoses Not on filein this encounter
--- OUTSIDE RECORDS SUMMARY | 2018-03-22 06:30 | XMS REPORT | Encounter Summary ---
Author Author [facility] Organization [facility] Address Unknown Phone Unavailable Care Team Providers Care Stained Glass Glazier Name Role Phone PCP Unavailable Reason for Visit * Reason Comments Results Encounter Details Date Type Department Care Team Description 01/31/2018 Telephone [facility] Michell Israel, Mekhi Physicians - Internal MEDICAL NURSE-COMMUNITY LIVING INSTRUCTOR Medicine [address] [facility] [address] [place] [address] [address] [facility] MED [phone] [place] [address] Social History Tobacco Use Types [...] Telephone Encounter - Veronica Hernandez LPN - 02/01/2018 12:22 PM CDT Lab results to PCP to f/u on low platelet count. * Telephone Encounter - Veronica Hernandez LPN - 01/31/2018 4:16 PM CDT Pt left detailed msg requesting results from below. Spoke with pt advised of below. Advised pt will fwd labs to PCP Lucrecia Sánchez [facility] [place], Pt aware that Humira drug/antibody still pending. Advised results take about a week to receive. Pt verbalized understanidng. * Telephone Encounter - Veronica Hernandez, BINDU - 01/31/2018 4:15 PM CDT ----- Message from Michell Israel APRN-COMMUNITY LIVING INSTRUCTOR sent at 01/30/2018 4:24 PM CDT ---- - CMP, CRP, ESR, amylase, lipase, are normal. Platelets continue to be low. Unknown clinical significance at this time. We will continue to monitor this with routine Humira labs but suggest patient follow-up regarding this with hepatology and primary care provider. in this encounter Plan of Treatment Date Type Specialty Care Team Description 04/17/2018 Surgery Hernandez Najera MD COLONOSCOPY [address] [place] [address] [phone] 04/17/2018 Procedure Pass 04/17/2018 Hospital Hernandez Najera MD Colon ulcer Encounter [address] [place] [address] [phone] as of this encounter Visit Diagnoses Not on filein this encounter
--- OUTSIDE RECORDS SUMMARY | 2018-03-22 06:30 | XMS REPORT | Encounter Summary ---
Author Author [facility] Organization [facility] Address Unknown Phone Unavailable Care Team Providers Care Portfolio Director Name Role Phone Lucrecia Sánchez DO Unavailable Lona Vega MD PCP Hernandez Najera MD [id number] Jessy Montgomery MD [phone] Vitaly Noriega MD [id number] Encounter Details Date Type Department Care Team Description 02/01/2018 Pharmacy Visit [facility] [address] [place], [place] [id number] Social History Tobacco Use Types Packs/Day Years [...] 04/17/2018 Surgery Hernandez Najera MD COLONOSCOPY [address] [place] [address] [phone] 04/17/2018 Procedure Pass 04/17/2018 Hospital Hernandez Najera MD Colon ulcer Encounter [address] [place] [address] [phone] as of this encounter Visit Diagnoses Not on filein this encounter
--- OUTSIDE RECORDS SUMMARY | 2018-03-22 06:30 | XMS REPORT | Encounter Summary ---
Author Author [facility] Organization [facility] Address Unknown Phone Unavailable Care Team Providers Care Client Service Associate Name Role Phone PCP Unavailable Reason for Visit * Reason Comments Medication Refill Encounter Details Date Type Department Care Team Description 01/31/2018 Refill [facility] Hernandez Najera MD Diarrhea, unspecified Physicians - Internal [address] [facility] type; [place] [address] Crohn's disease with [address]OD [address] [phone] [place], [place] [address] gastrointestinal tract [phone] location ([facility]) Social History Tobacco Use Types Packs/Day Years [...] 04/17/2018 Surgery Hernandez Najera MD COLONOSCOPY [address] [place], [place] [address] 04/17/2018 Procedure Pass 04/17/2018 [facility] Hernandez Najera MD Colon ulcer Encounter [address] [place] [address] [phone] as of this encounter Visit Diagnoses Diagnosis Diarrhea, unspecified type Crohn's disease with complication, unspecified gastrointestinal tract location (HCC)
--- OUTSIDE RECORDS SUMMARY | 2018-03-22 06:30 | XMS REPORT | Encounter Summary ---
Author Author [facility] Organization [facility] Address Unknown Phone Unavailable Care Team Providers Care Crushing Machine Operator Name Role Phone Lucrecia Sánchez DO Unavailable Lona Vega MD PCP Hernandez Najera MD [id number] Jessy Montgomery MD [phone] Vitaly Noriega MD [id number] Encounter Details Date Type Department Care Team Description 02/01/2018 [facility] [id number] [place] [address] Social History Tobacco Use Types Packs/Day Years [...] Team Description 04/17/2018 Surgery Hernandez Najera MD [facility] [address] [place] [address] [phone] 04/17/2018 Procedure Pass 04/17/2018 [facility] Hernandez Najera MD Colon ulcer Encounter [address] [place] [address] [phone] as of this encounter Visit Diagnoses Not on filein this encounter
--- OUTSIDE RECORDS SUMMARY | 2018-03-22 06:30 | XMS REPORT | Encounter Summary ---
Author Author [facility] Organization [facility] Address Unknown Phone Unavailable Care Team Providers Care Quality Assurance Analyst Name Role Phone PCP Unavailable Reason for Visit * Reason Comments Results Encounter Details Date Type Department Care Team Description 02/16/2018 Telephone [facility] Michell Israel, Mekhi Physicians - Internal CUSTOMS ENTRY WRITER-PIPE MAKER Medicine [address] [facility] [address] [address] [address] [facility] MED [phone] [place] [address] Social History Tobacco Use Types [...] as of this encounter Miscellaneous Notes * Addendum Note - Sophia Hernandez LPN - 02/28/2018 3:03 PM CDT Addended by: SOPHIA HERNANDEZ on: 02/28/2018 03:03 PM Modules accepted: Orders * Telephone Encounter - Sophia HernandezBINDU - 02/28/2018 2:57 PM CDT Outbound call returning pts call. Explained below recommendations to pt who verbalized understanding. (orders set to recheck Vit D 04/24/18) Order for Vit D 50,000 1 capsule by mouth every 7 days x 4 weeks sent to preferred pharmacy. Pt plans to f/u with Dr. Najera x 1 week in clinic. * Telephone Encounter - MarySophia danielBINDU - 02/27/2018 11:00 AM CDT Outbound call to pt to f/u on below. No answer. Left msg for pt to contact [phone]. ===View-only below this line=== ----- Message ----- From: Michell Israel APRN-PIPE MAKER Sent: 02/23/2018 4:45 PM To: Sophia Hernandez LPN Stool test is not consistent with pancreatic insufficiency as pancreatic elastase is normal. Vitamin D continues to be low. Please have patient finish out her 50,000 units of vitamin D weekly as she has been prescribed already and then provide her with an additional 50,000 units per week for 4 weeks. Please also have the patient begin to take 2000 units of vitamin D daily if she is not already doing so. We can recheck the patient's vitamin D level approximately 1 month after she has been replaced. As far as her abdominal pain and diarrhea I do not have much to offer her. She has an appointment with Dr. Najera in 2 weeks and hopefully he will have some more insight into how we can be of help. If she has any further concerns I would direct these 2 Dr. Najera. * Addendum Note - Mary BINDU Martin - 02/23/2018 3:19 PM CDT Addended by: SOPHIA HERNANDEZ on: 02/23/2018 03:19 PM Modules accepted: Orders * Telephone Encounter - Mary, BINDU Martin - 02/23/2018 1:49 PM CDT Pt left detailed msg and reports pharmacy did not receive script for levsin. Pt requesting call back. Advised pt reason for delay wanting on clarification from Michell. Pt verbalized understanding. RX sent. Pt also requests results completed through [facility] Humira monitoring labs Cbc Diff/CMP Informed pt that Vit D level were low but would have to further discuss tx plan with Michell Vit D 23.82 RR 30.00-100.00 Spoke with [facility] who reports will re-fax pancreatic elastase but can give verbal over the phone Pancreatic Elastase 389 RR <201 Labs have been placed in scan box to be scanned to pts chart. Routing to Michell to inform of above * Telephone Encounter - Michell IsraelHO - 02/21/2018 4:30 PM CDT It is ok to use imodium, but pt should use caution as she has some bowel narrowing/stricturing. BM's should stay soft enough to get through this site, helping to avoid a bowel obstruction. Levsin should be given PRN. 30tabs. 0 refills. * Telephone Encounter - Sophia Hernandez LPN - 02/21/2018 4:21 PM CDT Spoke with pt who reports today is a better day. Pt reports only having 4 BM today. Pt reports she was under the impression she was not to take imodium scheduled d/ t Michell mentioning concerns of ulcers and pressure causing ulcers to bleed. Pt reports she becomes constipated easily. Advised pt would further discuss with Michell. Pt verbalized understanding. Will await stool studies. Clarification on levsin order. If you want this order scheduled or PRN Routing to Michell to clarify as well as QTY refill * Telephone Encounter - Michell IsraelHO - 02/21/2018 1:09 PM CDT Ok for pt to take imodium as C. Diff is negative. Can take imodium scheduled or as needed to control diarrhea. Pending labs could be helpful to see if there is a pancreatic or infectious cause of pain. She should take no more than 2g of tylenol/acetaminophen daily. For pain she can try to take Tablet, sublingual (Levsin/SL, Oscimin, Symax SL): 0.125 to 0.25 mg 3 to 4 times daily; maximum: 1.5 mg/day Did she have any improvement in symptoms with Xifaxan (or doxy?)? * Telephone Encounter - Sophia Hernandez LPN - 02/20/2018 4:12 PM CDT Outbound call to inform pt that PCP office receive fax for labs stool c&s, pancreatic elastase, Vit D, CBC diff, Cmp ( humira monitoring labs. Pt has multiple questions and concerns. Pt reports on 02/18/2018 she had another bad bout of abd pain "all over" pain was bad enough she took Vikodin 7.5 mg 325 APAP 1 cap every 4 hours a total of 2 doses admin in the 24 hour time period per pt. Pt reports 8 watery bowel movements. Which pt reports had to take imodium to "slow down" diarrhea. Pt also reports pain radiates to the back and is constant. Pt reports 02/19/2018 "hurt all over " felt "worn out" and all pt did was sleep. Pt again reports she had to take Vikodin 1 cap a total of 1 dose admin in 24 hours. Pt states she is aware she is not to take and per pt previously advised by Hepatology to not take medication containing acetaminophen. Pt states " I dont care I cant take it anymore" Pt reports her daughter recommended for pt to try 100% pomegranate juice. Pt reports she drinks a total of 48 oz of pomegranate juice in a week. When asked how much sugar in juice pt reports 32 g in 8 fl oz. Pt educated on the importance of avoiding artificial and sugary drinks. Pt is open to seeing exhauster here at to further discuss diet and help pt avoid eating artificial and sugary drinks. Pt reports that bariatric referral is still in pending. Pt reports she has followed up however providers involved in patients care have to have meeting to discuss if ok for pt to proceed with surgery. Routing to [facility] to advise if anything further recommendations? * Telephone Encounter - Sophia Hernandez LPN - 02/17/2018 4:35 PM CDT Pt does not have standing orders in place for humira every 3 months CBC, CMP ordered. Routing to Michell to inform above labs ordered. * Telephone Encounter - Sophia Hernandez LPN - 02/16/2018 9:31 AM CDT Outbound call to pt to discuss below. No answer authorization on file to leave detailed msg. Advised pt of neg results for C diff crypto and giardia. Advised pt to contact office so I can further investigate why stool c&s, vit d, pancreatic elastase were not run. Will await for pt call back Spoke with pt and informed of below. Pt reports issues with PCP office receiving lab orders. Pt does confirm orders were given during last office visit. Pt is asking to resend lab orders to PCP office to complete further testing. Late Entry from 02/16/2018 PT is also reporting a change in symptoms. Pt reports that had last weekend she had a "bad bout" of abd pain all over pain constant, did not notice triggers. Pt reports explosive diarrhea. Pt reports that once abd pain seemed to lessen over the course of a few days she had bruise under breast, pt reports she has not fallen or can think of reason for bruise. * Telephone Encounter - Sophia HernandezBINDU - 02/16/2018 9:29 AM CDT ----- Message from Michell Israel APRN-PIPE MAKER sent at 02/10/2018 6:28 PM CDT ----- Infectious workup for diarrhea negative, patient is negative for C. difficile, cryptosporidium, and Giardia. For some reason I have not received a test result nor do I see that stool culture, vitamin D, and pancreatic elastase was run. Please ensure these are completed. in this encounter Plan of Treatment Date Type Specialty Care Team Description 04/17/2018 Surgery Hernandez Najera MD COLONOSCOPY [address] [place] [address] [phone] 04/17/2018 Procedure Pass 04/17/2018 Hospital Hernandez Najera MD Colon ulcer Encounter [address] [place] [address] [phone] Name Priority Associated Diagnoses Order Schedule CBC AND DIFF Routine Medication monitoring ONE TIME for 6 encounter Occurrences starting 02/17/2018 until 02/17/2019 COMPREHENSIVE METABOLIC PANEL Routine Medication monitoring ONE TIME for 6 encounter Occurrences starting 02/17/2018 until 02/17/2019 25-OH VITAMIN D (D2 + D3) Routine Medication monitoring Expected: 2017, encounter Expires: 02/28/2019 Vitamin D deficiency as of this encounter Visit Diagnoses Diagnosis Medication monitoring encounter - Primary Encounter for therapeutic drug monitoring Vitamin D deficiency Unspecified vitamin D deficiency
--- OUTSIDE RECORDS SUMMARY | 2018-03-22 06:30 | XMS REPORT | Encounter Summary ---
Author Author [facility] Organization [facility] Address Unknown Phone Unavailable Care Team Providers Care Electrical Installation Supervisor Name Role Phone PCP Unavailable Encounter Details Date Type Department Care Team Description 01/30/2018 [facility] Michell Israel, Vitamin D deficiency, Encounter [address] [place] GLASSWARE REPLACER-CAPACITY MANAGEMENT [place] [address] [place] [address] [phone] Social History Tobacco Use Types Packs/Day Years [...] impairment: No 12/07/2017 as of this encounter Medications at Time of Discharge Medication Sig. Disp. Refills Start Date End Date ASCORBATE CALCIUM Take by mouth daily. (VITAMIN C PO)Indications: Unknown dose cyanocobalamin (VITAMIN Inject 1,000 mcg to B-12, RUBRAMIN) 1,000 area(s) as directed every mcg/mL injection 30 days. EZETIMIBE (ZETIA PO) Take 10 mg by mouth daily. FERROUS SULFATE PO Take 65 mg by mouth daily. JANUVIA 100 mg tab tablet Take 1 tablet by mouth 01/09/2018 daily. levothyroxine (SYNTHROID) Take 100 mcg by mouth 100 mcg tablet daily. lisinopril (PRINIVIL, Take 40 mg by mouth ZESTRIL) 40 mg tablet daily. MELATONIN PO Take 5 mg by mouth at bedtime daily. metFORMIN (GLUCOPHAGE) Take by mouth twice 500 mg tablet daily with meals. Take two tabs (1000 mg) by mouth every a.m. And every p.m. sertraline (ZOLOFT) 100 Take 200 mg by mouth mg tablet daily. adalimumab(+) (HUMIRA Inject 40 mg under the 1 kit 5 09/28/2017 PEN) 40 mg/0.8 mL skin every 14 days. injection penIndications: Diarrhea, unspecified type, Crohn's disease with complication, unspecified gastrointestinal tract location (HCC) ergocalciferol (VITAMIN Take 1 capsule by mouth 6 capsule 0 201702/28/2018 D-2) 50,000 unit capsule every 7 days. X 6 weeks rifAXIMin (XIFAXAN) 550 Take 1 tablet by mouth 42 tablet 0 01/30/2018 02/13/2018 mg tabletIndications: three times daily for 14 DIARRHEA PREDOMINANT days. IRRITABLE BOWEL SYNDROME SITAGLIPTIN PHOSPHATE Take by mouth daily. 02/21/2018 (JANUVIA PO) as of this encounter Plan of Treatment Date Type Specialty Care Team Description 04/17/2018 Surgery Hernandez Najera MD COLONOSCOPY [address] [place] [address] [phone] 04/17/2018 Procedure Pass 04/17/2018 Hospital Hernandez Najera MD Colon ulcer Encounter [address] [place] [address] [phone] as of this encounter Results * [facility] (01/30/2018 1:19 PM) Component Value Ref Range Test PROMETHEUS Ansc[facility]ron ADA Reference Lab [facility] Results Ref Lab SHIPPED VIA [employer] PRIORITY OVERNIGHT ON 01/30/2018.RESULTS WILL BE SENT DIRECTLY TO THE ORDERING PHYSICIAN. SEE MEDICAL AFFAIRS SPECIALIST FOR REPORT Specimen Mail SERUM 2 GOLD TOPS Specimen Performing Laboratory REFERENCE LAB * AMYLASE (01/30/2018 1:14 PM) Component Value Ref Range Amylase 46 24 - 100 U/L Specimen Performing Laboratory [facility] [address] [place] [address] * LIPASE (01/30/2018 1:14 PM) Component Value Ref Range Lipase 74 11 - 82 U/L Specimen Performing Laboratory [facility] [address] [place] [address] * SED RATE (01/30/2018 1:14 PM) Component Value Ref Range Sed Rate -ESR 21 0 - 30 MM/HR Specimen Performing Laboratory [facility] [address] [place] [address] * C REACTIVE PROTEIN (CRP) (01/30/2018 1:14 PM) Component Value Ref Range C-Reactive Protein 0.46 <1.0 MG/DL Specimen Performing Laboratory [facility] [address] [place] [address] * COMPREHENSIVE METABOLIC PANEL (01/30/2018 1:14 PM) Component Value Ref Range Sodium 141 137 - 147 MMOL/L Potassium 3.9 3.5 - 5.1 MMOL/L Chloride 108 98 - 110 MMOL/L Glucose 109 (H) 70 - 100 MG/DL Blood Urea Nitrogen 13 7 - 25 MG/DL Creatinine 0.72 0.4 - 1.00 MG/DL Calcium 9.8 8.5 - 10.6 MG/DL Total Protein 6.7 6.0 - 8.0 G/DL Total Bilirubin 0.6 0.3 - 1.2 MG/DL Albumin 4.0 3.5 - 5.0 G/DL Alk Phosphatase 60 25 - 110 U/L AST (SGOT) 27 7 - 40 U/L CO2 26 21 - 30 MMOL/L ALT (SGPT) 18 7 - 56 U/L Anion Gap 7 3 - 12 eGFR Non >60 >60 mL/min Comment: The eGFR is not validated for use in drug dosing adjustments.Continue to use estimated creatinine clearance per dosing reference text.Please contact the Clinical Pharmacist for questions. eGFR >60 >60 mL/min Comment: The eGFR is not validated for use in drug dosing adjustments.Continue to use estimated creatinine clearance per dosing reference text.Please contact the Clinical Pharmacist for questions. Specimen Performing Laboratory [facility] [address] [place] [address] * CBC AND DIFF (01/30/2018 1:14 PM) Component Value Ref Range White Blood Cells 6.0 4.5 - 11.0 K/UL RBC 4.08 4.0 - 5.0 M/UL Hemoglobin 12.8 12.0 - 15.0 GM/DL Hematocrit 37.0 36 - 45 % MCV 90.7 80 - 100 FL MCH 31.3 26 - 34 PG MCHC 34.5 32.0 - 36.0 G/DL RDW 16.6 (H) 11 - 15 % Platelet Count 135 (L) 150 - 400 K/UL MPV 7.5 7 - 11 FL Neutrophils 59 41 - 77 % Lymphocytes 29 24 - 44 % Monocytes 7 4 - 12 % Eosinophils 4 0 - 5 % Basophils 1 0 - 2 % Absolute Neutrophil Count 3.60 1.8 - 7.0 K/UL Absolute Lymph Count 1.70 1.0 - 4.8 K/UL Absolute Monocyte Count 0.40 0 - 0.80 K/UL Absolute Eosinophil Count 0.20 0 - 0.45 K/UL Absolute Basophil Count 0.00 0 - 0.20 K/UL Specimen Performing Laboratory [facility] [address] [place] [address] in this encounter Visit Diagnoses Diagnosis Chronic diarrhea Diarrhea Colonic mass Other specified disorder of intestines Status post partial colectomy Other postprocedural status History of small bowel obstruction Personal history of other diseases of digestive system Right upper quadrant abdominal pain Abdominal pain, right upper quadrant History of cryptosporidiosis Personal history of other infectious and parasitic disease Admitting Diagnoses Diagnosis Vitamin D deficiency, unspecified
--- OUTSIDE RECORDS SUMMARY | 2018-03-22 06:31 | XMS REPORT | Encounter Summary ---
Author Author [facility] Organization [facility] Address Unknown Phone Unavailable Care Team Providers Care Tilesetter Name Role Phone Lucrecia Sánchez DO Unavailable Lona Vega MD PCP Hernandez Najera MD [id number] Jessy Montgomery MD [id number] Vitaly Noriega MD [id number] Encounter Details Date Type Department Care Team Description 12/27/2017 Pharmacy Visit [facility] [id number] [place] [id number] Social History Tobacco Use Types Packs/Day Years [...] Team Description 04/17/2018 Surgery Hernandez Najera MD [facility] [address] [place] [address] [phone] 04/17/2018 Procedure Pass 04/17/2018 Hospital Hernandez Najera MD Colon ulcer Encounter [address] [place] [address] [phone] as of this encounter Visit Diagnoses Not on filein this encounter
--- OUTSIDE RECORDS SUMMARY | 2018-03-22 06:31 | XMS REPORT | Encounter Summary ---
Author Author [facility] Organization [facility] Address Unknown Phone Unavailable Care Team Providers Care Operating Room Manager Name Role Phone Lucrecia Sánchez DO Unavailable Lona Vega MD PCP Hernandez Najera MD [id number] Jessy Montgomery MD [id number] Vitaly Noriega MD [phone] Encounter Details Date Type Department Care Team Description 12/21/2017 Pharmacy Visit Call Center Pharmacy [id number] [place] [address] Social History Tobacco Use Types Packs/Day Years [...] Team Description 04/17/2018 Surgery Hernandez N[address] [facility] [address] [place] [address] [phone] 04/17/2018 Procedure Pass 04/17/2018 Hospital Hernandez Najera MD Colon ulcer Encounter [address] [place] [address] [phone] as of this encounter Visit Diagnoses Not on filein this encounter
--- OUTSIDE RECORDS SUMMARY | 2018-03-22 06:31 | XMS REPORT | Encounter Summary ---
Author Author [facility] Organization [facility] Address Unknown Phone Unavailable Care Team Providers Care Application Counselor Name Role Phone PCP Unavailable Reason for Visit * Reason Comments Results Encounter Details Date Type Department Care Team Description 01/23/2018 Telephone [facility] Hernandez Najera MD Results Physicians - Internal [address] [facility] [place] [address] [address] FLOOR POD B [phone] [address] [facility] [place] [address] Social History Tobacco Use Types [...] encounter Miscellaneous Notes * Telephone Encounter - Jagruti Goel RN - 01/23/2018 3:12 PM CDT Pt notified, verbalizes understanding and agrees with plan * Telephone Encounter - Jagruti Goel RN - 01/23/2018 3:12 PM CDT ----- Message from Hernandez Najera MD sent at 01/23/2018 3:07 PM CDT ----- Could be due to chronic liver disease, will repeat in a month. ----- Message ----- From: Jagruti Goel, RN Sent: 01/23/2018 3:04 PM To: Hernandez Najera MD Pt concerned about platelet count; please advise. Thank you, Jagruti in this encounter Plan of Treatment Date Type Specialty Care Team Description 04/17/2018 Surgery Hernandez Najera MD COLONOSCOPY [address] [place] [address] 04/17/2018 Procedure Pass 04/17/2018 Hospital Hernandez Najera MD Colon ulcer Encounter [address] [place] [address] [phone] as of this encounter Visit Diagnoses Not on filein this encounter
--- OUTSIDE RECORDS SUMMARY | 2018-03-22 06:31 | XMS REPORT | Encounter Summary ---
Author Author [facility] Organization [facility] Address Unknown Phone Unavailable Care Team Providers Care Glass Etcher Name Role Phone Lucrecia Sánchez DO Unavailable Lona Vega MD PCP Hernandez Najera MD [phone] Jessy Montgomery MD [id number] Vitaly Noriega MD [phone] Encounter Details Date Type Department Care Team Description 12/20/2017 Pharmacy Visit Call Center Pharmacy [id number] [place] [id number] Social History Tobacco Use Types Packs/Day Years [...] Team Description 04/17/2018 Surgery Hernandez Najera MD [facility] [address] [place] [address] [phone] 04/17/2018 Procedure Pass 04/17/2018 Hospital Hernandez Najera MD Colon ulcer Encounter [address] [place] [address] [phone] as of this encounter Visit Diagnoses Not on filein this encounter
--- OUTSIDE RECORDS SUMMARY | 2018-03-22 06:31 | XMS REPORT | Encounter Summary ---
Author Author [facility] Organization [facility] Address Unknown Phone Unavailable Care Team Providers Care Facilities Management Executive Name Role Phone PCP Unavailable Reason for Referral * Consult, Test & Treat Status Reason Specialty Diagnoses / Referred By Referred To Procedures Contact Contact New Request Specialty General Surgery Diagnoses [facility] Class 3 obesity Michell GLASSINE MACHINE TENDER-ICE SELLER YI BLDG Required with body mass [address] index (BMI) of [address] [place], [place] 50.0 to 59.9 [place] [address] adult, [address] Phone: unspecified obesity type, unspecified Fax: whether serious [phone] comorbidity present (HCC) Reason for Visit * Reason Comments Abdominal pain Encounter Details Date Type Department Care Team Description 01/30/2018 Office Visit [facility] Michell Israel, Right upper quadrant Physicians - Internal GLASSINE MACHINE TENDER-ICE SELLER abdominal pain (Primary Medicine [address]); [address] [place] [address] Chronic diarrhea; [address] [facility] [phone] Colonic mass; OFFICE BLDG Status post partial [place], [place] colectomy; [id number] History of small bowel [phone] obstruction; History of cryptosporidiosis; Vitamin D deficiency; Class 3 obesity with body mass index (BMI) of 50.0 to 59.9 in adult, unspecified obesity type, unspecified whether serious comorbidity present (HCC) Social History Tobacco Use Types Packs/Day Years Used Date Never Smoker Smokeless Tobacco: Never Used Alcohol Use Drinks/Week oz/Week Comments No Sex Assigned at Date Recorded Not on file as of this encounter Last Filed Vital Signs Vital Sign Reading Time Taken Blood Pressure 153/75 01/30/2018 10:40 AM CDT Pulse 68 01/30/2018 10:40 AM CDT Temperature 36.7 C (98.1 F) 01/30/2018 10:40 AM CDT Respiratory Rate - - Oxygen Saturation - - Inhaled Oxygen - - Concentration Weight 141.7 kg (312 lb 6.4 oz) 01/30/2018 10:40 AM CDT Height 157.5 cm (5' 2") 01/30/2018 10:40 AM CDT Body Mass Index 57.14 01/30/2018 10:40 AM CDT in this encounter Functional Status [...] this encounter Instructions * Patient Instructions - Veronica Hernandez CHAINSTITCH SEWING MACHINE OPERATOR - 01/30/2018 11:00 AM CDT 1. Stop Imodium/antimotility medication until we have contacted you infectious causes to diarrhea has been ruled out. Stool studies have been ordered for you to evaluate for infectious causes of your symptoms. You may picking machine operator collection supplies at the lab today. Please remember only to turn in specimen if you have liquid stool otherwise the test will be canceled. (C Diff, Crypto, Giardia, C&S fecal elastase) Lab orders have been placed for you, please complete ordered testing today. The lab is located on the 1st floor of this building. We will call you with the results.(CBC, CMP, CRP, ESR, Lipase, amylase) We have ordered [facility] labs to check the levels of Humira in your system and see if you have developed antibodies to the medication. You have been given the paper lab orders for this, please take these to the lab when you have it drawn. Please have your Humira drug levels drawn now after you have had Humira drug/antibody levels drawn you can injection Humira as soon as possible. You have also been provided with the [employer] brochure; should you insurance not cover this lab they will be able to work with you to make it affordable. Continue Vitamin D 50,000 units weekly for 6 weeks, you already have this prescription You need Vitamin D level rechecked 04/01/2018, in 2 months We have placed a referral to bariatric surgery to discuss possibility of bariatric surgery versus referral to specialty Center. Please call [phone] if you have not heard from scheduling to schedule new patient appointment in 1 week. Xifaxan 550 mg take 1 capsule by mouth threes times a day for 14 days IBSD as patient has frequent diarrhea and abdominal pain, this will also treat small intestinal bacterial overgrowth which she is at high risk for. Please keep appointment with 03/08/2018 Please call my nurse Veronica at [phone] with any further questions/ concerns. in this encounter Progress Notes * Michell Israel APRN-EZEKIEL - 01/30/2018 11:00 AM CDT Formatting of this note may be different from the original. Date of Service: 01/30/2018 Subjective: Swathi Cummins is a 62 y.o. female pt of Dr. Najera with PMH of DM type 2, Anemia , PUD, Appy, CCY, and ulceration TI suggestive of Crohn disease wich has been treated with 5 ASA, Imuran, Entocort and is now on Humira returns to the clinic with diarrhea, abdominal pain, and abdominal tenderness. History of Present Illness Ms. Cummins has struggled chronically with nausea, diarrhea, and abdominal pain, she has had history of biopsies and terminal ileum showing both acute and chronic inflammation. Most recent colonoscopy showed this at the area of anastomosis. Humira was started in September and patient did not notice any change in her symptoms. Per patient she was previously started on Imuran without change in her symptoms, this was discontinued due to elevation in liver enzymes, and she is currently under the care of Dr. Montgomery in hepatology who reports that she has fatty liver disease as well as cirrhosis and splenomegaly. Ms. Cummins reports that this abdominal pain radiates to her right back and she notices significant abdominal distention when this pain occurs. She reports that she is having right upper quadrant abdominal pain, which she rates a 7-8 out of 10 in intensity, which she associates with both nausea and decreased volume/caliber/frequency of stool. She reports that when she has approximately 7 bowel movements per day she has less pain. She reports that her bowel movements, when she has them frequently, are greasy and dark in color. She reports she takes Imodium to help her diarrhea which she associates with urgency , but this makes her abdominal pain worse. She reports that she has history of Cryptosporidium, that she has been on Januvia and Metformin for approximately a year, that her last Humira shot was 01/21/18, and her next shot is 02/04/18. Also of note, her sister approximately 2 weeks ago which has been a great stress in her life. Review of Systems Constitutional: Positive for fatigue. HENT: Negative. Eyes: Negative. Respiratory: Positive for apnea. Gastrointestinal: Positive for abdominal distention, abdominal pain and diarrhea. Endocrine: Negative. Genitourinary: Positive for urgency. Musculoskeletal: Positive for back pain. Skin: Negative. Allergic/Immunologic: Negative. Neurological: Negative. Hematological: Negative. Psychiatric/Behavioral: Negative. All other systems reviewed and are negative. Objective: adalimumab(+) (HUMIRA PEN) 40 mg/0.8 mL [...] X 6 weeks EZETIMIBE (ZETIA PO) Take by mouth. FERROUS SULFATE PO Take 65 mg by mouth daily. levothyroxine (SYNTHROID) 100 mcg tablet Take 100 mcg by mouth daily. lisinopril (PRINIVIL, ZESTRIL) 40 mg tablet Take 40 mg by mouth daily. MELATONIN PO Take by mouth. metFORMIN (GLUCOPHAGE) 500 mg tablet Take by mouth twice daily with meals. Take two tabs (1000 mg) by mouth every a.m. And every p.m. sertraline (ZOLOFT) 100 mg tablet Take 200 mg by mouth daily. SITAGLIPTIN PHOSPHATE (JANUVIA PO) Take by mouth. Vitals: 01/30/18 1040 BP: 153/75 Pulse: 68 Temp: 36.7 C (98.1 F) TempSrc: Oral Weight: (!) 141.7 kg (312 lb 6.4 oz) Height: 157.5 cm (62") Body mass index is 57.14 kg/m. Physical Exam Constitutional: She is oriented to person, place, and time. She appears well- developed and well-nourished. HENT: Head: Normocephalic and atraumatic. Eyes: EOM are normal. Pupils are equal, round, and reactive to light. Neck: Normal range of motion. Neck supple. No tracheal deviation present. No thyromegaly present. Cardiovascular: Normal rate, regular rhythm and normal heart sounds. Pulmonary/Chest: Effort normal and breath sounds normal. Abdominal: Soft. Bowel sounds are normal. She exhibits distension. There is tenderness in the right upper quadrant, epigastric area and left upper quadrant. Musculoskeletal: Normal range of motion. Neurological: She is alert and oriented to person, place, and time. Skin: Skin is warm and dry. Psychiatric: She has a normal mood and affect. Her behavior is normal. Judgment and thought content normal. Assessment and Plan: Swathi Cummins is a 62 y.o. female pt of Dr. Najera with PMH of DM type 2, Anemia , PUD, Appy, CCY, and ulceration TI suggestive of Crohn disease wich has been treated with 5 ASA, Imuran, Entocort and is now on Humira returns to the clinic with diarrhea, abdominal pain, and abdominal tenderness. After discussion with the patient it was decided to proceed with the following: Stop Imodium Rule out C. difficile, Cryptosporidium, Giardia, and obtain a stool culture Check fecal elastase; as patient reports having greasy stools, she has a history of an elevated fecal fat, and she has diabetes Check Humira drug levels/antibodies, patient's next shot is due 02/04/2018, she will do this within 24 hours prior to her shot At that time also check CBC, CMP, CRP, ESR, Lipase, amylase Continue with 50,000 units of vitamin D weekly for 6 weeks, patient already has a prescription for this Recheck vitamin D 04/01/2018, in [address] referral to bariatric surgery to discuss possibility of bariatric surgery versus referral to specialty Center [facility] for IBSD as patient has frequent diarrhea and abdominal pain, this will also treat small intestinal bacterial overgrowth which she is at high risk for In the future she can discuss stopping anti-TNF agents/ as she has not responded to Humira (could be an primary anti-TNF nonresponder so we may need to change classes of drugs vs. changing to Remicade vs stopping biologics as this is a difficult diagnosis of Crohn's (not unusual to have ulcerations at anastomosis site)) Keep apt with Dr. Najera All questions were answered. Thank you for allowing me to participate in the care of this patient. Please call GI clinic with any questions/concerns. Michell Israel, GLASSINE MACHINE TENDER-ICE SELLER 02/02/18: CMP, CRP, ESR, amylase, lipase, are normal. Platelets continue to be low. Unknown clinical significance at this time. We will continue to monitor this with routine Humira labs but suggest patient follow-up regarding this with hepatology and primary care provider. Serum adalimumab level 11. No antibodies. Addendum 02/10/2018: Negative for C. difficile, cryptosporidium, and Giardia. For some reason I have not received a test result nor do I see that stool culture, vitamin D, and pancreatic elastase was run; we will ensure these are completed. Addendum 02/28/2018: Normal pancreatic elastase. Negative stool culture. Vitamin D continues to be low, please take 50,000 units of vitamin D weekly for 12 weeks. Start taking 2000 units of vitamin D daily. Recheck vitamin D 06/2018. CMP normal. CBC normal other than persistently low platelets. Pt to follow-up with primary care provider regarding persistent thrombocytopenia. in this encounter Plan of Treatment Date Type Specialty Care Team Description 04/17/2018 Surgery Hernandez Najera MD COLONOSCOPY [address] [place] [address] 04/17/2018 Procedure Pass 04/17/2018 Hospital Hernandez Najera MD Colon ulcer Encounter [address] [place] [address] [phone] Name Priority Associated Diagnoses Order Schedule CULTURE-FECES W/SENSITIVITY Routine Chronic diarrhea Expected: 2017 Colonic mass (Approximate), Expires: Status post partial 01/30/2019 colectomy History of small bowel obstruction Right upper quadrant abdominal pain History of cryptosporidiosis PANCREATIC ELASTASE, STOOL Routine Chronic diarrhea Expected: 01/30/2018 Colonic mass (Approximate), Expires: Status post partial 01/30/2019 colectomy History of small bowel obstruction Right upper quadrant abdominal pain History of cryptosporidiosis 25-OH VITAMIN D (D2 + D3) Routine Vitamin D deficiency Expected: 2017, Expires: 01/30/2019 Name Priority Associated Diagnoses Order Schedule AMB REFERRAL TO BARIATRIC SURGERY Routine Class 3 obesity with body Ordered: 01/30/2018 mass index (BMI) of 50.0 to 59.9 in adult, unspecified obesity type, unspecified whether serious comorbidity present (HCC) as of this encounter Results * CRYPTOSPORIDUM,FECAL (02/01/2018) Specimen Performing Laboratory Stool - Feces OTHER OUTSIDE LAB * GIARDIA SCREEN,FECAL (02/01/2018) Specimen Performing Laboratory Feces OTHER OUTSIDE LAB * C DIFFICILE BY PCR (02/01/2018) Specimen Performing Laboratory Feces OTHER OUTSIDE LAB * AMYLASE (01/30/2018 1:14 PM) Component Value Ref Range Amylase 46 24 - 100 U/L Specimen Performing Laboratory Blood MAIN LAB [address] [place] [address] * LIPASE (01/30/2018 1:14 PM) Component Value Ref Range Lipase 74 11 - 82 U/L Specimen Performing Laboratory Blood [facility]IN [facility] [address] [place] [address] * SED RATE (01/30/2018 1:14 PM) Component Value Ref Range Sed Rate -ESR 21 0 - 30 MM/HR Specimen Performing Laboratory Blood [facility] [address] [place] [address] * C REACTIVE PROTEIN (CRP) (01/30/2018 1:14 PM) Component Value Ref Range C-Reactive Protein 0.46 <1.0 MG/DL Specimen Performing Laboratory Blood MA[facility] [address] [place] [address] * COMPREHENSIVE METABOLIC PANEL (01/30/2018 1:14 PM) [...] Performing Laboratory [facility] [address] [place] [address] * CBC AND DIFF (01/30/2018 1:14 PM) [...] Performing Laboratory [facility] [address] [place] [address] in this encounter Visit Diagnoses Diagnosis Right upper quadrant abdominal pain - Primary Abdominal pain, right upper quadrant Chronic diarrhea Diarrhea Colonic mass Other specified disorder of intestines Status post partial colectomy Other postprocedural status History of small bowel obstruction Personal history of other diseases of digestive system History of cryptosporidiosis Personal history of other infectious and parasitic disease Vitamin D deficiency Unspecified vitamin D deficiency Class 3 obesity with body mass index (BMI) of 50.0 to 59.9 in adult, unspecified obesity type, unspecified whether serious comorbidity present (HCC)
--- OUTSIDE RECORDS SUMMARY | 2018-03-22 06:31 | XMS REPORT | Encounter Summary ---
Author Author [facility] Organization [facility] Address Unknown Phone Unavailable Care Team Providers Care Water Ski Assembler Name Role Phone Lucrecia Sánchez DO Unavailable Lona Vega MD PCP [place] Najera MD [id number] Jessy Montgomery MD 220503 Vitaly Noriega MD [id number] Encounter Details Date Type Department Care Team Description 12/26/2017 Pharmacy Visit [facility] [address] [place], [place] [id number] Social History Tobacco Use Types Packs/Day Years [...] 04/17/2018 Surgery Hernandez Najera MD COLONOSCOPY [address] [place] [address] [phone] 04/17/2018 Procedure Pass 04/17/2018 Hospital Hernandez Najera MD Colon ulcer Encounter [address] [place] [address] [phone] as of this encounter Visit Diagnoses Not on filein this encounter
--- OUTSIDE RECORDS SUMMARY | 2018-03-22 06:31 | XMS REPORT | Encounter Summary ---
Author Author [facility] Organization [facility] Address Unknown Phone Unavailable Care Team Providers Care Director Treasurer Name Role Phone Lucrecia Sánchez DO Unavailable Lona Vega MD PCP [place] Najera MD [phone] Jessy Montgomery MD [id number] Vitaly Noriega MD [phone] Encounter Details Date Type Department Care Team Description 12/23/2017 Pharmacy Visit [facility] [address] [place] [address] Social History Tobacco Use Types Packs/Day Years [...] Team Description 04/17/2018 Surgery [facility] [address] [place] [address] [phone] 04/17/2018 Procedure Pass 04/17/2018 Hospital Hernandez Najera MD Colon ulcer Encounter [address] [place] [address] [phone] as of this encounter Visit Diagnoses Not on filein this encounter
--- OUTSIDE RECORDS SUMMARY | 2018-03-22 06:31 | XMS REPORT | Encounter Summary ---
Author Author [facility] Organization [facility] Address Unknown Phone Unavailable Care Team Providers Care Finish Painter Name Role Phone PCP Unavailable Reason for Visit * Reason Comments Other Encounter Details Date Type Department Care Team Description 01/25/2018 Telephone [facility] Hernandez Najera MD Other Physicians - Internal [address] [facility] [place] [address] [address] [phone] [address] [facility] [place] [place] [address] Social History Tobacco Use Types [...] Telephone Encounter - Jagruti Goel RN - 01/26/2018 9:32 AM CDT Formatting of this note may be different from the original. Hernandez Najera MD Cain, Rhonda, RN Continue Vit d. Pt was notified and states she is out of Vitamin D, will submit to pharmacy. * Telephone Encounter - Jagruti Goel RN - 01/26/2018 9:23 AM CDT ----- Message from Hernandez Najera MD sent at 01/23/2018 8:22 PM CDT ----- Continue Vit d. ----- Message ----- From: Jagruti Goel RN Sent: 01/23/2018 3:55 PM To: Hernandez Najera MD Pt called 2nd time. Inquiring about Vitamin D level. It has come up from last time. Please advise. Thank you, Jagruti * Telephone Encounter - Jagruti Goel RN - 01/26/2018 9:21 AM CDT Pt called, left message. Returned call, pt reports pain under left breast-constant pain--rating at a 5 with as a 7. Firm in the area. Pt states it is not relieved with anything, position, gas release, eating etc. Due to patient living a ways from the clinic, advised for her to see her PCP or Urgent Care. Pt can also follow up with KAREN Galarza sooner than her appointment with Dr. Najera. Pt verbalizes understanding and agrees with plan. Routing to Dr. Najera to inform. 01-27-2018 Pt returned call, states she went to the PCP and pt is to follow up with [facility]. Pt states diarrhea persists; abdominal pain and back pain persists. Due to no availability with Dr. Najera next week; Advised to follow up with KAREN Galarza. Transferred to scheduling. Routing to Dr. Najera and KAREN Galarza to inform. in this encounter Plan of Treatment Date Type Specialty Care Team Description 04/17/2018 Surgery Hernandez Najera MD COLONOSCOPY [address] [place] [address] [phone] 04/17/2018 Procedure Pass 04/17/2018 Hospital Hernandez Najera MD Colon ulcer Encounter [address] [place] [address] [phone] as of this encounter Visit Diagnoses Not on filein this encounter
--- OUTSIDE RECORDS SUMMARY | 2018-03-22 06:31 | XMS REPORT | Encounter Summary ---
Author Author [facility] Organization [facility] Address Unknown Phone Unavailable Care Team Providers Care Broadcast Director Operations Name Role Phone Lucrecia Sánchez DO Unavailable Lona Vega MD PCP Hernandez Najera MD 950809 Jessy Montgomery MD 306106 Vitaly Noriega MD [phone] Encounter Details Date Type Department Care Team Description 01/19/2018 Pharmacy Visit [facility] [address] [place] [address] Social History Tobacco Use Types Packs/Day Years [...] Team Description 04/17/2018 Surgery Hernandez Najera MD [facility] [address] [place] [address] [phone] 04/17/2018 Procedure Pass 04/17/2018 Hospital Hernandez Najera MD Colon ulcer Encounter [address] [place] [address] [phone] as of this encounter Visit Diagnoses Not on filein this encounter
--- OUTSIDE RECORDS SUMMARY | 2018-03-22 06:31 | XMS REPORT | Encounter Summary ---
Author Author [facility] Organization [facility] Address Unknown Phone Unavailable Care Team Providers Care Sand Mill Operator Core Sand Name Role Phone Lucrecia Sánchez DO Unavailable Lona Vega MD PCP Hernandez Najera MD 548992 Jessy Montgomery MD 204536 Vitaly Noriega MD 430270 Encounter Details Date Type Department Care Team Description 12/26/2017 Pharmacy Visit [facility] [address] [place] [address] Social History Tobacco Use Types Packs/Day Years [...] Surgery Hernandez Najera MD [facility] [address] [place] [address] [phone] 04/17/2018 Procedure Pass 04/17/2018 Hospital Hernandez Najera MD Colon ulcer Encounter [address] [place] [address] [phone] as of this encounter Visit Diagnoses Not on filein this encounter
--- OUTSIDE RECORDS SUMMARY | 2018-03-22 06:31 | XMS REPORT | Encounter Summary ---
Author Author [facility] Organization [facility] Address Unknown Phone Unavailable Care Team Providers Care Vision Care Associate Name Role Phone Lucrecia Sánchez DO Unavailable Lona Vega MD PCP [place] Najera MD 365294 Jessy Montgomery MD 226567 Vitaly Noriega MD 900795 Encounter Details Date Type Department Care Team Description 01/23/2018 Pharmacy Visit [facility] [id number] [place] [address] Social History Tobacco Use Types Packs/Day Years [...] Team Description 04/17/2018 Surgery Hernandez Najera MD [facility] [address] [place] [address] [phone] 04/17/2018 Procedure Pass 04/17/2018 Hospital Hernandez Najera MD Colon ulcer Encounter [address] [place] [address] [phone] as of this encounter Visit Diagnoses Not on filein this encounter
--- OUTSIDE RECORDS SUMMARY | 2018-03-22 06:32 | XMS REPORT ---
Author Author [facility] Organization [facility] Address [address] [place] [address] Care Team Providers Care Automotive Generator Repairer Name Role Phone MARIIA DORANHANY Unavailable PROBLEMS Type Condition ICD9-CM Code [id number] Code Onset Dates Condition Status SNOMED Code Problem Essential hypertension I10 Active 62693973 Problem Acquired hypothyroidism E03.9 Active 878380639 Problem Hyperlipidemia E78.5 Active 07011132 Problem Frequent falls R29.6 Active 123004780 Problem Crohn's disease of both small and large intestine with complication K50.819 Active 85803426 Problem Anxiety F41.9 Active 90899875 Problem Major depressive disorder, recurrent episode, moderate F33.1 Active 320775755 Problem Chronic tension-type headache, intractable G44.221 Active 480631771 Problem Right upper quadrant pain R10.11 Active 66359624 Problem Fatty liver K76.0 Active 724916367 Problem Sensorineural hearing loss of right ear H90.41 Active 98816651 Problem Iron deficiency anemia due to chronic blood loss D50.0 Active 71623856 Problem Type 2 diabetes mellitus without complication E11.9 Active 19967597 Problem Periodic limb movement sleep disorder G47.61 Active 959260271 Problem Chronic diarrhea K52.9 Active 893867165 Problem Obstructive sleep apnea on CPAP G47.33 Active 00303268 Problem Vitamin B12 deficiency E53.8 Active 736474720 ALLERGIES No Information SOCIAL HISTORY Never Assessed PLAN OF CARE VITAL SIGNS MEDICATIONS Unknown Medications RESULTS No Results PROCEDURES Procedure Date Ordered Result Body Site B12, VITAMIN (UP TO 1000 MCG) Nov 19, 2016 THER/PROPH/DIAG INJ, SC/IM Nov 19, 2016 IMMUNIZATIONS Vaccine Route Administration Date Status B12, VITAMIN (UP TO 1000 MCG) IM Intramuscular Nov 19, 2016 Administered MEDICAL (GENERAL) HISTORY Type Description Date Medical History type 2 diabetes Medical History post cholecystectomy 2008 Medical History gastrointestinal disorder endoscopy streched esophagus in 2012 Medical History stress test- 05/2017 normal and EF 63% Surgical History thyroid surgery thyroidectomy 1995 Surgical History appendectomy 1960 Surgical History hysterectomy 1982 Surgical History orthopeadic surgery 2 right knee replacement 2004- 2006 Surgical History prior surgery diviated septum 1989 Surgical History Colon resection 2014 Surgical History carpal tunnel release 2016
--- OUTSIDE RECORDS SUMMARY | 2018-03-22 06:32 | XMS REPORT ---
Author Author BRENTON DORAN [facility] Address [address] [place] [address] Care Team Providers Care Cray Fishing Hand Name Role Phone BRENTON DORAN Unavailable PROBLEMS Type Condition ICD9-CM Code HFX22-GS Code Onset Dates Condition Status SNOMED Code Problem Anxiety F41.9 Active 90712591 Problem Chronic tension-type headache, intractable G44.221 Active 874370629 Problem Right upper quadrant pain R10.11 Active 13280933 Problem Vitamin D deficiency E55.9 Active 32419347 Problem Sensorineural hearing loss of right ear H90.41 Active 60068237 Problem BMI 50.0-59.9, adult Z68.43 Active 905774759 Problem Fatty liver K76.0 Active 682038776 Problem Frequent falls R29.6 Active 540370389 Problem Crohn's disease of both small and large intestine with complication K50.819 Active 32933724 Problem Type 2 diabetes mellitus with other specified complication E11.69 Active 678069479278 Problem Hyperlipidemia, unspecified E78.5 Active 34699720 Problem MACHUCA (nonalcoholic steatohepatitis) K75.81 Active 152685087 Problem Iron deficiency anemia due to chronic blood loss D50.0 Active 64776141 Problem Periodic limb movement sleep disorder G47.61 Active 437372834 Problem Obstructive sleep apnea on CPAP G47.33 Active 04139354 Problem Essential hypertension I10 Active 82794791 Problem Hyperlipidemia E78.5 Active 05374103 Problem Chronic diarrhea K52.9 Active 995951405 Problem Acquired hypothyroidism E03.9 Active 788062987 Problem Vitamin B12 deficiency E53.8 Active 971435131 Problem Major depressive disorder, recurrent episode, moderate F33.1 Active [id number] ALLERGIES No Information ENCOUNTERS Encounter Location Date Diagnosis [facility] [id number], [place] [address] 100[address] Mar, [facility] [id number] [place] [address] 89905- 9865 February, [facility] [id number] [place] [address] 23946- 4247 Jan, [facility] [id number] [place] [address] 23784- 3286 Jan, [facility] [id number] [place] [address] 27049 -8309 Jan, Diarrhea due to staphylococcus A04.8 and Diarrhea, unspecified type R19.7 [facility] [id number] [place] [address] 81395- 5042 Jan, Acquired hypothyroidism E03.9 ; Type 2 diabetes mellitus with other specified complication E11.69 ; Hyperlipidemia E78.5 ; Essential hypertension I10 ; Major depressive disorder, recurrent episode, moderate F33.1 and Vitamin D deficiency E55.9 [facility] [id number] [place] [address] 91389- 1183 Jan, Type 2 diabetes mellitus with other specified complication E11.69 ; Hyperlipidemia E78.5 ; Essential hypertension I10 ; Acquired hypothyroidism E03.9 ; Major depressive disorder, recurrent episode, moderate F33.1 ; Vitamin D deficiency E55.9 ; Sinus congestion R09.81 and BMI 50.0-59.9, adult Z68.43 [facility] [place] [address] [place] [address] 85869- 2587 Dec, [facility] [id number] [place] [address] 31232- 6022 Sep, Encounter for immunization Z23 [facility] [id number] [place] [address] 80915- 3568 Sep, [facility] [id number] [place] [address] 81072- 0437 Sep, Vitamin B12 deficiency E53.8 [facility] [id number] [place] [address] 72730- 5277 Aug, [facility] [id number] [place] [address] 02533- 9868 Aug, BMI 60.0-69.9, adult Z68.44 and Acute non-recurrent maxillary sinusitis J01.00 [facility] [id number] [place] [address] 65498- 7389 14 Aug, 2017 [facility] [id number] [place] [address] 72636- 9269 02 Aug, 2017 Medicare annual wellness visit, initial Z00.00 ; Screening for breast cancer Z12.31 ; BMI 40.0-44.9, adult Z68.41 and Acquired hypothyroidism E03.9 [facility] [id number] [place] [address] 93178- 1997 Jul, Actinic keratosis L57.0 [facility] [id number] [place] [address] 57587- 6866 Jul, Actinic keratosis L57.0 [facility] [id number] [place] [address] 01928- 9574 Jul, Type 2 diabetes mellitus with other specified complication E11.69 ; Actinic keratosis L57.0 and Hypothyroidism, unspecified E03.9 [facility] [id number] [place] [address] 56196- 3009 Jul, [facility] [id number] [place] [address] 64156- 7584 Jul, [facility] [id number] [place] [address] 68046- 1716 Jul, Vitamin B12 deficiency E53.8 [id number] [place] [address] 14646- 4979 Jun, Acquired hypothyroidism E03.9 and Chronic tension-type headache, intractable G44.221 [facility] [id number] [place] [address] 93471- 2351 Jun, Back muscle spasm M62.830 and BMI 50.0-59.9, adult Z68.43 [facility] [id number] [place] [address] 23852- 3331 Jun, Vitamin B12 deficiency E53.8 [facility] [address] 79745- 0454 Jun, Crohn's disease of both small and large intestine with complication K50.819 [address] [place] [address] 52339- 2453 Jun, Crohn's disease of both small and large intestine with complication K50.819 [facility] [address] 23446- 6045 May, Hyperlipidemia E78.5 ; Anxiety F41.9 and Essential hypertension I10 [facility] [address] 82748- 1394 May, [facility] [address] 63891- 8452 May, Encounter for immunization Z23 and Vitamin B12 deficiency E53.8 [facility] [place] [address] 72715- 9881 May, [facility] [address] 37607- 6014 Apr, [facility] [id number] [place] [address] 63013- 0072 Apr, [facility] [id number] [place] [address] 43587- 8510 Apr, Crohn's disease of both small and large intestine with complication K50.819 [facility] [address] 66727- 0391 Apr, Vitamin B12 deficiency E53.8 [facility] [id number] [place] [address] 95175- 2017 Apr, Crohn's disease of both small and large intestine with complication K50.819 and Acute pain of right shoulder M25.511 [facility] [id number] [place] [address] 96644- 0606 Mar, Type 2 diabetes mellitus without complication E11.9 ; Frequent falls R29.6 and Other chest pain R07.89 [facility] [id number] [place] [address] 32602- 4355 14 Mar, 2017 [address] [address] 91329- 4924 Mar, [facility] [address] 68919- 3835 Mar, Type 2 diabetes mellitus without complication E11.9 and Blurry vision, bilateral H53.8 [facility] [id number] [place] [address] 84767- 7873 Mar, Vitamin B12 deficiency E53.8 [facility] [address] 95951- 5570 Mar, Crohn's disease of both small and large intestine with complication K50.819 [facility] [address] 93267- 4230 February, Vitamin B12 deficiency E53.8 [facility] [id number] [place] [address] 94059- 2882 Jan, Crohn's disease of both small and large intestine with complication K50.819 [facility] [id number] [place] [address] 66421- 6880 Jan, Crohn's disease of both small and large intestine with complication K50.819 [facility] [id number] [place] [address] 15452 -7221 Jan, Dark brown-colored urine R82.99 and Acute suppurative otitis media of right ear without spontaneous rupture of tympanic membrane, recurrence not specified H66.001 [place] [address] 19931- 8751 Jan, Encounter for immunization Z23 [facility] [id number] [place] [address] 02103- 0391 Dec, Crohn's disease of both small and large intestine with complication K50.819 and Eustachian tube dysfunction, right H69.81 [facility] [id number] [place] [address] 44404- 5320 Dec, [place] [address] 73212- 7160 Dec, Contusion of right knee, initial encounter S80.01XA [address] [address] 59921- 8835 Dec, [facility] [id number] [place] [address] 65216- 9031 Dec, Acute pain of right knee M25.561 [place] [address] 09902- 8946 Dec, Iron deficiency anemia due to chronic blood loss D50.0 [place] [place] [address] 61295- 3506 Dec, Hyperlipidemia E78.5 ; Type 2 diabetes mellitus without complication E11.9 ; Vitamin B12 deficiency E53.8 ; Essential hypertension I10 ; Obstructive sleep apnea on CPAP G47.33 and Periodic limb movement sleep disorder G47.61 [facility] [id number] [place] [address] 50820- 2518 Nov, Type 2 diabetes mellitus without complication E11.9 ; Vitamin B12 deficiency E53.8 ; Hyperlipidemia E78.5 ; Essential hypertension I10 ; Obstructive sleep apnea on CPAP G47.33 ; Periodic limb movement sleep disorder G47.61 ; Anxiety F41.9 ; Acquired hypothyroidism E03.9 and Chronic tension-type headache, intractable G44.221 [facility] [id number] [place] [address] 80026- 0376 Nov, Crohn's disease of both small and large intestine with complication K50.819 [facility] [address] [place] [address] 17673- 5428 Nov, Vitamin B12 deficiency E53.8 [facility] [id number] [place] [address] 13008- 4216 Oct, [facility] [id number] [place] [address] 54253- 0039 Oct, Vitamin B12 deficiency E53.8 [facility] [id number] [place] [address] 25689- 3144 Sep, [facility] [id number] [place] [address] 05101- 1870 Sep, Vitamin B12 deficiency E53.8 [facility] [id number] [place] [address] 55513- 1767 Aug, [facility] [id number] [place] [address] 00673- 3934 Aug, Vitamin B12 deficiency E53.8 [facility] [id number] [place] [address] 77228- 8210 Aug, [facility] [id number] [place] [address] 41541- 4512 24 Jul, 2016 Elevated ALT measurement R74.0 [facility] [id number] [place] [address] 62420- 5201 Jul, Hematuria R31.9 ; Acute right-sided thoracic back pain M54.6 ; Major depressive disorder, recurrent episode, moderate F33.1 and Elevated ALT measurement R74.0 [facility] [id number] [place] [address] 61009- 6581 Jul, [facility] [id number] [place] [address] 83628- 5660 Jul, Elevated ALT measurement R74.0 [facility] [id number] [place] [address] 35157- 0914 Jul, Iron deficiency anemia due to chronic blood loss D50.0 [address] [address], [place] [address]- 9543 14 Jul, 2016 Type 2 diabetes mellitus without complication E11.9 ; Acquired hypothyroidism E03.9 ; Iron deficiency anemia due to chronic blood loss D50.0 ; Hyperlipidemia E78.5 and Essential hypertension I10 [facility] [place] [id number] [place] [address] 14972- 3261 Jun, [place] [place] [address] [place] [address] 49943- 0629 Jun, Vitamin B12 deficiency E53.8 [facility] [place] [id number] [place] [address] 38968- 9528 16 Jun, 2016 Type 2 diabetes mellitus without complication E11.9 ; Acquired hypothyroidism E03.9 ; Iron deficiency anemia due to chronic blood loss D50.0 ; Hyperlipidemia E78.5 ; Essential hypertension I10 ; Chronic tension -type headache, intractable G44.221 ; Pulsatile tinnitus, bilateral H93.13 ; Obstructive sleep apnea on CPAP G47.33 and Major depressive disorder, recurrent episode, moderate F33.1 [place] [place] [id number] [place] [address] 66130- 8748 May, Vitamin B12 deficiency E53.8 [facility] [id number], [place] [address]- 1208 May, [place] [place] [id number] [place] [address] 64752- 2774 Apr, Vitamin B12 deficiency E53.8 [address] [place], [place] [address]- 1006 Apr, [place] [place] [id number] [place] [address] 29657- 2275 Mar, Chronic tension-type headache, intractable G44.221 and Major depressive disorder, recurrent episode, moderate F33.1 [place] [place] [address] [place] [address] 44709- 8329 Mar, Vitamin B12 deficiency E53.8 [facility] [address], [place] [address]- 7383 February, [facility] [address] [place] [address] 54191- 0869 February, Vitamin B12 deficiency E53.8 [facility] [address] [place] [address] 92259- 0381 February, [facility] [id number] [place] [address] 24170- 0884 Jan, Dysuria R30.0 [facility] [id number] [place] [address] 43104- 4077 Jan, Type 2 diabetes mellitus without complication E11.9 and Essential hypertension I10 [facility] [id number] [place] [address] 58913- 8503 15 Jan, 2016 Chronic diarrhea K52.9 [facility] [id number] [place] [address] 26620- 7237 Jan, [facility] [id number] [place] [address] 01161- 1148 Jan, Chronic diarrhea K52.9 [facility] [address] [place] [address] 09489- 7519 Jan, [facility] [address] [place] [address] 14875- 7573 Jan, Dysuria R30.0 [facility] [address] [place] [address] 60377- 5813 07 Jan, 2016 Vitamin B12 deficiency E53.8 [facility] [id number] [place] [address] 34463- 4850 07 Jan, 2016 Dysuria R30.0 and Iron deficiency anemia due to chronic blood loss D50.0 [facility] [address] [place] [address] 03620- 6954 05 Jan, 2016 Dysuria R30.0 [facility] [address], [place] [address]- 7048 04 Jan, 2016 [facility] [id number] [place] [address] 54257- 2041 15 Dec, 2015 [facility] [id number] [place] [address] 38703- 0168 11 Dec, 2015 Iron deficiency anemia due to chronic blood loss D50.0 [facility] [id number] [place] [address] 32434- 7946 10 Dec, 2015 Dysuria R30.0 ; Fatigue R53.83 ; Hyperlipidemia E78.5 and Diarrhea R19.7 [place] [address] [place] [address] 47420- 9019 Dec, [facility] [id number] [place] [address] 45934- 5667 Dec, [facility] [id number] [place] [address] 05472- 2954 Nov, Vitamin B12 deficiency E53.8 [facility] [place] [id number] [place] [address] 39983- 2894 Oct, Vitamin B12 deficiency E53.8 [facility] [id number] [place] [address] 10443- 5105 Oct, [facility] [address] [place] [address] 72739 -8921 Oct, Headache R51 [facility] [address] [place] [address] 23973- 5688 07 Oct, 2015 Essential hypertension I10 ; Type 2 diabetes mellitus without complication E11.9 ; Vitamin B12 deficiency E53.8 ; Acquired hypothyroidism E03.9 ; Iron deficiency anemia due to chronic blood loss D50.0 and Hyperlipidemia E78.5 [facility] [address], [place] [address]- 1780 17 Sep, 2015 Essential hypertension I10 ; Vitamin B12 deficiency E53.8 ; Iron deficiency anemia due to chronic blood loss D50.0 ; Type 2 diabetes mellitus without complication E11.9 ; Hyperlipidemia E78.5 and Acquired hypothyroidism E03.9 [facility] [id number] [place] [address] 32168- 7026 Sep, [facility] [id number] [place] [address] 87716- 7528 Sep, [facility] [id number] [place] [address] 44231- 6994 Jul, [facility] [id number] [place] [address] 48798- 8617 Jun, [facility] [id number] [place] [address] 44624- 5440 Jun, [facility] [address] [place] [address] 50498- 4157 Jun, Hyperlipidemia 272.4 ; Iron deficiency anemia 280.9 ; Hypothyroidism 244.9 ; Diabetes mellitus without mention of complication, type II or unspecified type, not stated as uncontrolled 250.00 and Hypertension 401.9 [facility] [id number] [place] [address] 39123- 7594 Jun, [facility] [address] [place] [address] 88305- 3547 Jun, [facility] [id number] [place] [address] 13902- 3806 May, Hyperlipidemia 272.4 [facility] [address], [place] [address]- 2110 May, [facility] [id number] [place] [address] 24078- 5461 May, [facility] [id number] [place] [address] 52232- 7309 Apr, Diabetes mellitus without mention of complication, type II or unspecified type, not stated as uncontrolled 250.00 ; Hypothyroidism 244.9 ; Hyperlipidemia 272.4 ; Pain in joint, lower leg 719.46 and RUQ pain 789.01 [facility] [address], [place] [address]- 5135 15 Mar, 2015 Sinusitis 473.9 [facility] [id number], [place] [address]- 1271 04 Mar, 2015 [facility] [id number] [place] [address] 57525- 0104 Mar, [facility] [id number] [place] [address] 04361- 7598 Mar, Hematochezia 578.1 [facility] [id number] [place] [address] 13006- 5070 February, Sinusitis 473.9 [facility] [id number] [place] [address] 51854- 8240 February, [facility] [id number] [place] [address] 10936- 9341 Jan, [facility] [id number] [place] [address] 68180- 5323 Jan, [facility] [id number] [place] [address] 16994- 8839 Dec, [facility] [address], [place] [address]- 1034 Dec, [facility] [address], [place] [address]- 2107 Dec, [facility] [address], [place] [address]- 5665 Dec, [facility] [id number] [place] [address] 36979- 6861 Dec, [facility] [address], [place] [address]- 5360 Dec, [facility] [id number] [place] [address]- 6123 Dec, [facility] [place] [facility] [address] [id number] [place] [address]- 6750 Dec, [facility] [place] [facility] [address] [id number] [place] [address]- 5397 Dec, [facility] [place] [facility] [address] [id number] [place] [address]- 5714 Dec, [facility] [place] [facility] [address] [id number] [place] [address]- 0637 Dec, [facility] [place] [facility] [address] [id number] [place] [address]- 4845 Nov, [facility] [place] [facility] [address] [id number] [place] [address]- 4970 Nov, [facility] [place] [facility] [address] [id number] [place] [address]- 1252 Nov, [facility] [place] [facility] [address] [id number] [place] [address]- 0595 Nov, [facility] [place] [facility] [address] [id number] [place] [address]- 1853 Oct, [facility] [place] [facility] [address] [facility] [id number] [place] [address]- 8740 Oct, [facility] [place] [facility] [address] [id number] [place] [address]- 1927 Oct, [facility] [place] [facility] [address] [id number] [place] [address]- 8575 Oct, [facility] [place] [facility] [address] [id number] [place] [address]- 2547 Oct, [facility] [place] [facility] [address] [facility] [id number] [place] [address]- 2965 Oct, [facility] [place] [facility] [address] [facility] [id number] [place] [address]- 3963 Sep, [facility] [place] [facility] [address] [id number] [place] [address]- 9780 Sep, [facility] [place] [facility] [address] [id number] [place] [address]- 1714 Sep, [facility] [place] [facility] [address] [id number] [place] 4342 Sep, [facility] [place] [facility] [address] [id number] [place] [address]- 2692 Sep, [facility] [place] [facility] [address] [id number] [place] [address]- 5528 Sep, [facility] [place] [facility] [address] [id number] [place] [address]- 5467 Sep, [facility] [place] [facility] [address] [id number] [place] [address] Aug, [facility] [place] [facility] [address] [id number] [place] [address] Aug, [facility] [place] [facility] [address] [id number] [place] [address] Aug, [facility] [place] [facility] [address] [id number] [place] [address] Aug, [facility] [place] [facility] [address] [id number] [place] [address] Aug, [facility] [place] [facility] [address] [id number], [place] [address] Aug, [facility] [place] [facility] [address] [id number] [place] [address] Aug, [facility] [place] [facility] [address] [id number] [place] [address] Aug, [facility] [place] [facility] [address] [id number], [place] [address] 17 Aug, 2014 [facility] [place] [facility] [address] [id number], [place] [address] Aug, [facility] [place] [facility] [address] [id number] [place] [address] Aug, [facility] [place] [facility] [address] [id number] [place] [address] Aug, [facility] [place] [facility] [address] [facility] [id number] [place] [address] Aug, [facility] [place] [facility] [address] [id number] [place] [address] Aug, [facility] [place] [facility] [address] [id number] [place] [address] Jul, [facility] [place] [facility] [address] [id number] [place] [address] Jul, [facility] [place] [facility] [address] [facility] [id number] [place] [address] Jul, [facility] [place] [facility] [address] [id number] [place] [address] Jul, [facility] [place] [facility] [address] [id number] [place] [address] 24 Jun, 2014 [facility] [place] [facility] [address] [id number] [place] [address] 24 Jun, 2014 [facility] [place] [facility] [address] [id number] [place] [address] 23 Jun, 2013 [facility] [place] [facility] [address] [id number], [place] [address] 23 Jun, 2013 [facility] [place] [facility] [address] [id number] [place] [address] 19 Jun, 2013 [facility] [place] [facility] [address] [id number] [place] [address] 19 Jun, 2013 [facility] [place] [facility] [address] [facility] [id number] [place] [address] 11 Jun, 2013 [facility] [place] [facility] [address] [id number] [place] [address] 11 Jun, 2013 [facility] [place] [facility] [address] [id number] [place] [address] 11 Jun, 2014 [facility] [place] [facility] [address] [id number] [place] [address] 11 Jun, 2013 [facility] [place] [facility] [address] [id number] [place] [address] 10 Jun, 2013 [facility] [place] [facility] [address] [id number] [place] [address] Jun, 2013 [facility] [place] [facility] [address] [id number] [place] [address] Jun, [facility] [place] [facility] [address] [id number] [place] [address] Jun, [facility] [place] [facility] [address] [id number] [place] [address] May, [facility] [place] [facility] [address] [id number] [place] [address] May, [facility] [place] [facility] [address] [id number] [place] [address] May, [facility] [place] [facility] [address] [id number] [place] [address] May, [facility] [place] [facility] [address] [id number] [place] [address] May, [facility] [place] [facility] [address] [id number] [place] [address] May, [facility] [place] [facility] [address] [id number] [place] [address] Apr, [facility] [place] [facility] [address] [id number] [place] [address] 69[address] Apr, [facility] [place] [facility] [address] [id number] [place] [address]85 Apr, [facility] [place] [facility] [address] [id number] [place] [address] 6759 Apr, [facility] [place] [facility] [address] [id number] [place] [address] 7478 Apr, [facility] [place] [facility] [address] [id number] [place] [address] Apr, [facility] [place] [facility] [address] [id number] [place] [address]18 Apr, [facility] [place] [facility] [address] [id number] [place] [address] Apr, [facility] [place] [facility] [address] [id number] [place] [address]21 Apr, [facility] [place] [facility] [address] [id number] [place] [address] 9559 Apr, [facility] [place] [facility] [address] [id number] [place] [address] 2926 Apr, [facility] [place] [facility] [address] [id number] [place] [address] 8785 Mar, [facility] [place] [facility] [address] [id number] [place] [address] 46[address] Mar, [facility] [place] [facility] [address] [id number] [place] [address]204 Mar, [facility] [place] [facility] [address] [id number] [place] [address]70 Mar, [facility] [place] [facility] [address] [id number] [place] [address] 1217 February, [facility] [place] [facility] [address] [id number] [place] [address] 79[address] February, [facility] [place] [facility] [address] [id number] [place] [address]758 Jan, [facility] [place] [facility] [address] [id number] [place] [address]146 Jan, [id number] [place] [id number] Jan [facility] [address] [id number] [place] [address] Jan, [facility] [address] [id number] [place] [address] 112[address] Jan, [facility] [place] [facility] [address] [id number] [place] [address] 8845 Jan, [facility] [address] [id number] [place] [address] Jan, [facility] [address] [id number] [place] [address] Jan, [facility] [address] [id number] [place] [address] 3560 Jan, [facility] [place] [facility] [address] [id number] [place] [address] 2715 Jan, [facility] [place] [facility] [address] [id number] [place] [address]- 6417 Jan, [facility] [place] [facility] [address] [id number] [place] [address]- 8399 Jan, [facility] [place] [facility] [address] [id number] [place] [address] 59[address] Jan, [facility] [place] [facility] [address] [id number] [place] [address]- 6825 Jan, [facility] [place] [facility] [address] [id number] [place] [address] 8592 Jan, [facility] [place] [facility] [address] [id number] [place] [address]- 8399 Jan, [facility] [place] [facility] [address] [id number] [place] [address]- 1480 Jan, [facility] [place] [facility] [address] [id number] [place] [address] 3976 Dec, [facility] [place] [facility] [address] [id number] [place] [address]- 6395 Dec, [facility] [place] [facility] [address] [id number] [place] [address]- 8866 Dec, [facility] [place] [facility] [address] [id number] [place] [address]- 1877 Dec, [facility] [place] [facility] [address] [id number] [place] [address]- 3061 Dec, [facility] [place] [facility] [address] [id number] [place] [address]- 8557 Dec, [facility] [place] [facility] [address] [facility] [id number] [place] [address] 0328 Dec, [facility] [place] [facility] [address] [facility] [id number] [place] [address] 5514 Nov, [facility] [place] [facility] [address] [id number] [place] [address] 25[address] Nov, [facility] [place] [facility] [address] [facility] [id number] [place] [address]- 0574 Nov, [facility] [place] [facility] [address] [facility] [id number] [place] [address]- 0604 Nov, [facility] [place] [facility] [address] [facility] [id number] [place] [address]- 1210 Nov, [facility] [place] [facility] [address] [facility] [id number] [place] [address]- 2990 Nov, [facility] [place] [facility] [address] [id number] [place] [address]- 7708 Nov, [facility] [place] [facility] [address] [facility] [id number] [place] [address]- 4393 Oct, [facility] [place] [facility] [address] [facility] [id number] [place] [address]- 0915 Oct, [facility] [address] [id number] [place] [address]- 0456 Sep, [facility] [place] [facility] [address] [id number] [place] [address]- 6386 Sep, [facility] [place] [facility] [address] [facility] [id number] [place] [address]- 4135 Sep, [facility] [place] [facility] [address] [id number] [place] [address]- 5936 Sep, [facility] [place] [facility] [address] [id number] [place] [address]- 1855 Sep, [facility] [place] [facility] [address] [id number] [place] [address]- 8323 Sep, [facility] [place] [facility] [address] [id number] [place] [address]- 0406 Sep, [facility] [place] [facility] [address] [id number] [place] [address]- 5346 Sep, [facility] [place] [facility] [address] [id number] [place] [address]- 3472 Sep, [facility] [place] [facility] [address] [id number] [place] [address]- [address] Sep, [facility] [place] [facility] [address] [id number], [place] [address] Aug, [facility] [place] [facility] [address] [id number], [place] [address] Aug, [facility] [place] [facility] [address] [id number] [place] [address]- 1720 Aug, [facility] [place] [facility] [address] [id number], [place] [address] 16[address] Aug, [facility] [place] [facility] [address] [id number], [place] [address]- 8974 Aug, [facility] [place] [facility] [address] [facility] [id number] [place] Jul, [facility] [address] [facility] [id number] [place] [address] Jul, [facility] [address] [facility] [id number] [place] [address] Jul, [facility] [address] [facility] [id number] [place] Jul, IMMUNIZATIONS Vaccine Route Administration Date Status HEP B (ADULT) IM Intramuscular Sep 29, 2017 Administered SOCIAL HISTORY Never Assessed REASON FOR VISIT Immunization(s) PLAN OF CARE VITAL SIGNS MEDICATIONS Unknown Medications RESULTS No Results PROCEDURES Procedure Date Ordered Result Body Site HEP B (ADULT) Sep 29, 2017 SINGLE IMMUNIZATION ADMIN Sep 29, 2017 INSTRUCTIONS MEDICATIONS ADMINISTERED No Known Medications MEDICAL (GENERAL) HISTORY Type Description Date Medical [...] resection 2014 Surgical History carpal tunnel release 2015 Surgical History Right Rotator Cuff Repair 05/18/2017 Hospitalization History Surgeries
--- OUTSIDE RECORDS SUMMARY | 2018-03-22 06:32 | XMS REPORT ---
Author Author ESPINOZA BRENTON Organization [facility] Address [address] [place] [address] Care Team Providers Care Publication Director Name Role Phone MARIIA DORANHANY Unavailable PROBLEMS Type Condition ICD9-CM Code ECM71-[id number] Code Onset Dates Condition Status SNOMED Code Problem Iron deficiency anemia due to chronic blood loss D50.0 Active 92554603 Problem Major depressive disorder, recurrent episode, moderate F33.1 Active 930023262 Problem Acquired hypothyroidism E03.9 Active 915169243 Problem Frequent falls R29.6 Active 210827316 Problem Crohn's disease of both small and large intestine with complication K50.819 Active 02600414 Problem Anxiety F41.9 Active 68947477 Problem Type 2 diabetes mellitus without complication E11.9 Active 27299858 Problem Chronic tension-type headache, intractable G44.221 Active 735337502 Problem Chronic diarrhea K52.9 Active 793893282 Problem Periodic limb movement sleep disorder G47.61 Active 756239265 Problem Fatty liver K76.0 Active 809059820 Problem Essential hypertension I10 Active 33725124 Problem Hyperlipidemia E78.5 Active 57431327 Problem Sensorineural hearing loss of right ear H90.41 Active 34920165 Problem Right upper quadrant pain R10.11 Active 81070328 Problem Obstructive sleep apnea on CPAP G47.33 Active 93481635 Problem Vitamin B12 deficiency E53.8 Active 198644187 ALLERGIES Unknown Allergies SOCIAL HISTORY No smoking Hx information available PLAN OF CARE VITAL SIGNS MEDICATIONS Unknown Medications RESULTS No Results PROCEDURES Procedure Date Ordered Related Diagnosis Body Site B12, VITAMIN (UP TO 1000 MCG) Jun 29, 2016 THER/PROPH/DIAG INJ, SC/IM Jun 29, 2016 IMMUNIZATIONS Vaccine Route Administration Date Status B12, VITAMIN (UP TO 1000 MCG) IM Intramuscular Jun 29, 2016 Administered
--- OUTSIDE RECORDS SUMMARY | 2018-03-22 06:33 | XMS REPORT ---
Author Author ESPINOZA BRENTON Organization [facility] Address [address] [place] [address] Care Team Providers Care Physician Practice Consultant Name Role Phone MARIIA DORANHANY Unavailable PROBLEMS Type Condition ICD9-CM Code [id number] Code Onset Dates Condition Status SNOMED Code Problem Essential hypertension I10 Active 19298986 Problem Acquired hypothyroidism E03.9 Active 432493735 Problem Hyperlipidemia E78.5 Active 94998432 Problem Frequent falls R29.6 Active 426781095 Problem Crohn's disease of both small and large intestine with complication K50.819 Active 41113996 Problem Anxiety F41.9 Active 15983994 Problem Major depressive disorder, recurrent episode, moderate F33.1 Active 383023219 Problem Chronic tension-type headache, intractable G44.221 Active 820001741 Problem Right upper quadrant pain R10.11 Active 81715219 Problem Fatty liver K76.0 Active 642672941 Problem Sensorineural hearing loss of right ear H90.41 Active 02220128 Problem Iron deficiency anemia due to chronic blood loss D50.0 Active 60325052 Problem Type 2 diabetes mellitus without complication E11.9 Active 71745518 Problem Periodic limb movement sleep disorder G47.61 Active 200006963 Problem Chronic diarrhea K52.9 Active 654341421 Problem Obstructive sleep apnea on CPAP G47.33 Active 91748329 Problem Vitamin B12 deficiency E53.8 Active 291069728 ALLERGIES Substance Reaction Event Type Date Status Penicillin V Potassium Unknown Drug Allergy Nov, Active Niacin Unknown Drug Allergy Nov, Active Morphine Sulfate Unknown Drug Allergy Nov, Active Lipitor abdominal pain Drug Allergy Nov, Active Dilaudid Unknown Drug Allergy Nov, Active Bactrim Unknown Drug Allergy Nov, Active Amoxicillin Unknown Drug Allergy Nov, Active Adhesive Unknown Non Drug Allergy Nov, Active Sulfamethoxazole-Trimethoprim Unknown Drug Allergy Nov, Active Tetanus&diphtheria Toxoid Unknown Non Drug Allergy Nov, Active Influenza Virus Vacc,specific Got flu and was told to never get the vaccine again Non Drug Allergy Nov, Active SOCIAL HISTORY Never Assessed PLAN OF CARE Activity Details Follow Up 3 Months Reason:DMII Pending Test IRON + TIBC Pending Test VITAMIN B12 Pending Test FERRITIN, SERUM VITAL SIGNS Height 62 in 2016-12-01 Weight 316.0 lbs 2016-12-01 Temperature 98.8 degrees Fahrenheit 2016-12-01 Heart Rate 78 bpm 2016-12-01 Respiratory Rate 20 2016-12-01 BMI 57.79 kg/m2 2016-12-01 Blood pressure systolic 130 mmHg 2016-12-01 Blood pressure diastolic 80 mmHg 2016-12-01 MEDICATIONS Medication Instructions Dosage Frequency Start Date End Date Duration Status MetFORMIN HCl ER 750 MG Orally 2 times a day 1 tablet 12h 90 days Active Lisinopril 40 mg Orally Once a day 1 tablet 24h 90 days Active Ferrous Sulfate 325 (65 Fe) MG Orally Once a day 1 tablet 24h Dec, Active Fiber - Active Meloxicam 15 MG Orally Once a day 1 tablet as needed 24h May, 90 days Active Zetia 10 mg Orally Once a day 1 tablet 24h 90 days Active Zoloft 100 mg Orally Once a day 2 tablets 24h 90 days Active Levothyroxine Sodium 100 MCG Orally Once a day 1 tablet on an empty stomach in the morning 24h 90 days Active Cyanocobalamin 1000 MCG/ML 1 Active RESULTS Name Result Date Reference Range A1C (IN HOUSE) 2016-12-01 A1C IN HOUSE 6.6 4.3 - 5.6 % Previous A1c 6.1 Lot 0672 Exp date 08/2018 CBC 2016-12-01 Please note WBC RBC Hemoglobin Hematocrit MCV MCH MCHC RDW Platelets NRBC Neutrophils Lymphs Monocytes Eos Basos Immature Granulocytes Neutrophils (Absolute) Lymphs (Absolute) Monocytes(Absolute) Eos (Absolute) Baso (Absolute) Immature Grans (Abs) Immature Cells Bands Blasts/blast like cells Megakaryocytes Metamyelocytes Myelocytes Other, Lineage Uncertain Promyelocytes Hematology Comments: Request Problem Request Problem CMP 2016-12-01 Request Problem NTI Urine Tube (Ackerman) Lesia Tariq CMP14 Default Request Problem Request Problem Sodium, Serum Potassium, Serum Chloride, Serum Carbon Dioxide, Total BUN Creatinine, Serum eGFR If NonAfricn Am eGFR If Africn Am BUN/Creatinine Ratio Glucose, Serum Calcium, Serum Bilirubin, Total AST (SGOT) ALT (SGPT) Alkaline Phosphatase, S Protein, Total, Serum Albumin, Serum Globulin, Total A/G Ratio Specimen Identification Status Please note PROCEDURES Procedure Date Ordered Result Body Site GLYCATED HEMOGLOBIN TEST Dec 01, 2016 [facility] VISIT ESTABLISHED PATIENT Dec 01, 2016 IMMUNIZATIONS No Known Immunizations MEDICAL (GENERAL) HISTORY Type Description Date Medical History type 2 diabetes Medical History post cholecystectomy 2008 Medical History gastrointestinal disorder endoscopy streched esophagus in 2012 Medical History stress test- 05/2017 normal and EF 63% Surgical History thyroid surgery thyroidectomy 1995 Surgical History appendectomy 1959 Surgical History hysterectomy 1982 Surgical History orthopeadic surgery 2 right knee replacement 2004- 2006 Surgical History prior surgery diviated septum 1989 Surgical History Colon resection 2014 Surgical History carpal tunnel release 2015
--- OUTSIDE RECORDS SUMMARY | 2018-03-22 06:33 | XMS REPORT ---
Author Author BRENTON DORAN Organization [facility] Address [address] [place] [address] Care Team Providers Care Fortune Teller Name Role Phone BRENTON DORAN Unavailable PROBLEMS Type Condition ICD9-CM Code DSI26-EX Code Onset Dates Condition Status SNOMED Code Problem Anxiety F41.9 Active 73811761 Problem Chronic tension-type headache, intractable G44.221 Active 359658045 Problem Right upper quadrant pain R10.11 Active 09048724 Problem Vitamin D deficiency E55.9 Active 31658953 Problem Sensorineural hearing loss of right ear H90.41 Active 47722547 Problem BMI 50.0-59.9, adult Z68.43 Active 124774894 Problem Fatty liver K76.0 Active 692566338 Problem Frequent falls R29.6 Active 333476000 Problem Crohn's disease of both small and large intestine with complication K50.819 Active 18432055 Problem Type 2 diabetes mellitus with other specified complication E11.69 Active 403870772986 Problem Hyperlipidemia, unspecified E78.5 Active 48930252 Problem MACHUCA (nonalcoholic steatohepatitis) K75.81 Active 663589190 Problem Iron deficiency anemia due to chronic blood loss D50.0 Active 42340231 Problem Periodic limb movement sleep disorder G47.61 Active 113423165 Problem Obstructive sleep apnea on CPAP G47.33 Active 81721195 Problem Essential hypertension I10 Active 14913323 Problem Hyperlipidemia E78.5 Active 52834387 Problem Chronic diarrhea K52.9 Active 221772577 Problem Acquired hypothyroidism E03.9 Active 799037078 Problem Vitamin B12 deficiency E53.8 Active 902110344 Problem Major depressive disorder, recurrent episode, moderate F33.1 Active 907139229 ALLERGIES No Information ENCOUNTERS Encounter Location Date Diagnosis [facility] [address] [facility] [id number] [address] Jan, [facility] [id number] [place] [address] 16751 -2703 Jan, Diarrhea due to staphylococcus A04.8 and Diarrhea, unspecified type R19.7 [facility] [id number] [place] [address] 07282- 7856 Jan, Acquired hypothyroidism E03.9 ; Type 2 diabetes mellitus with other specified complication E11.69 ; Hyperlipidemia E78.5 ; Essential hypertension I10 ; Major depressive disorder, recurrent episode, moderate F33.1 and Vitamin D deficiency E55.9 [facility] [id number] [place] [address] 71445- 8485 Jan, Type 2 diabetes mellitus with other specified complication E11.69 ; Hyperlipidemia E78.5 ; Essential hypertension I10 ; Acquired hypothyroidism E03.9 ; Major depressive disorder, recurrent episode, moderate F33.1 ; Vitamin D deficiency E55.9 ; Sinus congestion R09.81 and BMI 50.0-59.9, adult Z68.43 [facility] [id number] [place] [address] 85829- 4043 Dec, [facility] [id number] [place] [address] 41344- 9255 Sep, Encounter for immunization Z23 [facility] [id number] [place] [address] 23151- 7715 Sep, [facility] [id number] [place] [address] 16525- 6977 Sep, Vitamin B12 deficiency E53.8 [facility] [id number] [place] [address] 40808- 2135 Aug, [facility] [id number] [place] [address] 79401- 7565 Aug, BMI 60.0-69.9, adult Z68.44 and Acute non-recurrent maxillary sinusitis J01.00 [facility] [id number] [place] [address] 23740- 6152 Aug, [facility] [id number] [place] [address] 77081- 4452 02 Aug, 2017 Medicare annual wellness visit, initial Z00.00 ; Screening for breast cancer Z12.31 ; Acquired hypothyroidism E03.9 and BMI 40.0-44.9, adult Z68.41 [facility] [id number] [place] [address] 91012- 9016 Jul, Actinic keratosis L57.0 [facility] [address] 98443- 4192 Jul, Actinic keratosis L57.0 [facility] [address] 41786- 7850 Jul, Type 2 diabetes mellitus with other specified complication E11.69 ; Actinic keratosis L57.0 and Hypothyroidism, unspecified E03.9 [facility] [address] 72203- 8288 Jul, [facility] [address] 03424- 8895 Jul, [facility] [address] 41106- 7519 Jul, Vitamin B12 deficiency E53.8 [facility] [id number] [place] [address] 93549- 2714 Jun, Acquired hypothyroidism E03.9 and Chronic tension-type headache, intractable G44.221 [facility] [id number] [place] [address] 35933- 3916 Jun, Back muscle spasm M62.830 and BMI 50.0-59.9, adult Z68.43 [facility] [address] 75813- 9730 Jun, Vitamin B12 deficiency E53.8 [facility] [id number] [place] [address] 80363- 8126 Jun, Crohn's disease of both small and large intestine with complication K50.819 [facility] [id number] [place] [address] 70642- 0823 Jun, Crohn's disease of both small and large intestine with complication K50.819 [facility] [id number] [place] [address] 72793- 3081 May, Hyperlipidemia E78.5 ; Anxiety F41.9 and Essential hypertension I10 [facility] [facility] [address] 48688- 6356 May, [facility] [address] 48023- 3977 May, Encounter for immunization Z23 and Vitamin B12 deficiency E53.8 [facility] [address] 43229- 8843 May, [facility] [address] 44557- 8867 Apr, [facility] [address] 43774- 7287 Apr, [facility] [address] 32087- 3594 Apr, Crohn's disease of both small and large intestine with complication K50.819 [facility] [id number] [place] [address] 76046- 2005 Apr, Vitamin B12 deficiency E53.8 [facility] [id number] [place] [address] 63857- 3705 Apr, Crohn's disease of both small and large intestine with complication K50.819 and Acute pain of right shoulder M25.511 [facility] [address] 71795- 5721 Mar, Type 2 diabetes mellitus without complication E11.9 ; Frequent falls R29.6 and Other chest pain R07.89 [facility] [address] 44907- 6375 14 Mar, 2017 [facility] [id number] [place] [address] 46211- 0701 Mar, [facility] [id number] [place] [address] 74017- 7042 Mar, Type 2 diabetes mellitus without complication E11.9 and Blurry vision, bilateral H53.8 [facility] [id number] [place] [address] 91836- 0754 Mar, Vitamin B12 deficiency E53.8 [facility] [place] [id number] [place] [address] 94414- 6093 Mar, Crohn's disease of both small and large intestine with complication K50.819 [facility] [place] [id number] [place] [address] 15360- 9043 February, Vitamin B12 deficiency E53.8 [facility] [id number] [place] [address] 65224- 8923 Jan, Crohn's disease of both small and large intestine with complication K50.819 [facility] [place] [id number] [place] [address] 00905- 8088 Jan, Crohn's disease of both small and large intestine with complication K50.819 [facility] [id number] [place] [address] 11367 -2473 Jan, Dark brown-colored urine R82.99 and Acute suppurative otitis media of right ear without spontaneous rupture of tympanic membrane, recurrence not specified H66.001 [place] [address] [place] [address] 11816- 0946 Jan, Encounter for immunization Z23 [facility] [place] [id number] [place] [address] 55108- 4271 Dec, Crohn's disease of both small and large intestine with complication K50.819 and Eustachian tube dysfunction, right H69.81 [facility] [place] [id number] [place] [address] 96359- 6972 Dec, [facility] [address] [address]- 6570 Dec, Contusion of right knee, initial encounter S80.01XA [facility] [id number] [place] [address] 13913- 4736 Dec, [facility] [place] [id number] [place] [address] 39081- 0419 Dec, Acute pain of right knee M25.561 [facility] [id number] [place] [address] 34051- 4499 Dec, Iron deficiency anemia due to chronic blood loss D50.0 [facility] [id number] [place] [address] 96780- 3482 Dec, Hyperlipidemia E78.5 ; Type 2 diabetes mellitus without complication E11.9 ; Vitamin B12 deficiency E53.8 ; Essential hypertension I10 ; Obstructive sleep apnea on CPAP G47.33 and Periodic limb movement sleep disorder G47.61 [facility] [place] [id number] [place] [address] 45701- 9373 Nov, Type 2 diabetes mellitus without complication E11.9 ; Vitamin B12 deficiency E53.8 ; Hyperlipidemia E78.5 ; Essential hypertension I10 ; Obstructive sleep apnea on CPAP G47.33 ; Periodic limb movement sleep disorder G47.61 ; Anxiety F41.9 ; Acquired hypothyroidism E03.9 and Chronic tension-type headache, intractable G44.221 [place] [address] [place] [address] 44843- 6813 Nov, Crohn's disease of both small and large intestine with complication K50.819 [facility] [place] [id number] [place] [address] 16222- 8433 Nov, Vitamin B12 deficiency E53.8 [facility] [address] [address]- 2044 Oct, [facility] [id number] [place] [address] 22780- 7338 Oct, Vitamin B12 deficiency E53.8 [facility] [address], [place] [address]- 1697 Sep, [facility] [id number] [place] [address] 03622- 8085 Sep, Vitamin B12 deficiency E53.8 [facility] [id number] [place] [address] 37849- 6595 Aug, [facility] [id number] [place] [address] 35151- 8663 Aug, Vitamin B12 deficiency E53.8 [facility] [address] [place] [address] 19245- 8665 Aug, [facility] [id number] [place] [address] 11341- 9760 Jul, Elevated ALT measurement R74.0 [facility] [place] [address] [place] [address] 73187- 6265 Jul, Hematuria R31.9 ; Acute right-sided thoracic back pain M54.6 ; Major depressive disorder, recurrent episode, moderate F33.1 and Elevated ALT measurement R74.0 [place] [address] [place] [address] 61614- 1745 Jul, [facility] [address] [place] [address] 78722- 8259 Jul, Elevated ALT measurement R74.0 [facility] [address] [place] [address] 57016- 1205 Jul, Iron deficiency anemia due to chronic blood loss D50.0 [facility] [address] [place] [address] 16626- 5762 Jul, Type 2 diabetes mellitus without complication E11.9 ; Acquired hypothyroidism E03.9 ; Iron deficiency anemia due to chronic blood loss D50.0 ; Hyperlipidemia E78.5 and Essential hypertension I10 [place] [id number] [place] [address] 75385- 1662 26 Jun, 2016 [facility] [id number] [place] [address] 98522- 4271 20 Jun, 2016 Vitamin B12 deficiency E53.8 [facility] [id number] [place] [address] 22192- 5514 16 Jun, 2016 Type 2 diabetes mellitus without complication E11.9 ; Acquired hypothyroidism E03.9 ; Iron deficiency anemia due to chronic blood loss D50.0 ; Hyperlipidemia E78.5 ; Essential hypertension I10 ; Chronic tension -type headache, intractable G44.221 ; Pulsatile tinnitus, bilateral H93.13 ; Obstructive sleep apnea on CPAP G47.33 and Major depressive disorder, recurrent episode, moderate F33.1 [place] [id number] [place] [address] 15748- 7660 May, Vitamin B12 deficiency E53.8 [facility] [id number] [place] [address] 98123- 9940 May, [facility] [place] [id number] [place] [address] 45428- 2914 Apr, Vitamin B12 deficiency E53.8 [facility] [id number] [place] [address] 48002- 8480 Apr, [facility] [place] [id number] [place] [address] 95424- 3120 Mar, Chronic tension-type headache, intractable G44.221 and Major depressive disorder, recurrent episode, moderate F33.1 [place] [address] [place] [address] 29309- 0495 14 Mar, 2016 Vitamin B12 deficiency E53.8 [facility] [id number] [place] [address] 97740- 0532 February, [facility] [id number] [place] [address] 19729- 4195 February, Vitamin B12 deficiency E53.8 [place] [id number] [place] [address] 14711- 9247 February, [facility] [id number] [place] [address] 58191- 2542 27 Jan, 2016 Dysuria R30.0 [facility] [id number] [place] [address] 82715- 6371 22 Jan, 2016 Essential hypertension I10 and Type 2 diabetes mellitus without complication E11.9 [facility] [id number] [place] [address] 37225- 1781 15 Jan, 2016 Chronic diarrhea K52.9 [facility] [id number] [place] [address] 28746- 8338 13 Jan, 2016 [facility] [id number] [place] [address] 86946- 4880 Jan, Chronic diarrhea K52.9 [facility] [id number] [place] [address] 90622- 4333 Jan, [facility] [id number] [place] [address] 00229- 7461 12 Jan, 2016 Dysuria R30.0 [facility] [id number] [place] [address] 78890 2540 07 Jan, 2016 Vitamin B12 deficiency E53.8 [facility] [id number] [place] [address] 96562- 7895 07 Jan, 2016 Dysuria R30.0 and Iron deficiency anemia due to chronic blood loss D50.0 [facility] [id number] [place] [address] 62833- 2548 05 Jan, 2016 Dysuria R30.0 [facility] [id number] [place] [address] 57598 2541 04 Jan, 2016 [facility] [id number] [place] [address] 21639- 7188 15 Dec, 2015 [facility] [id number] [place] [address] 67095- 3237 Dec, Iron deficiency anemia due to chronic blood loss D50.0 [facility] [address] [place] [address] 04418- 0257 10 Dec, 2015 Dysuria R30.0 ; Fatigue R53.83 ; Hyperlipidemia E78.5 and Diarrhea R19.7 [facility] [address], [place] [address]- 3437 09 Dec, 2015 [facility] [id number] [place] [address] 76781- 4702 Dec, [facility] [id number] [place] [address] 80983- 4148 Nov, Vitamin B12 deficiency E53.8 [facility] [id number] [place] [address] 42669- 7214 Oct, Vitamin B12 deficiency E53.8 [place] [id number] [place] [address] 32743- 0124 Oct, [facility] [address] [place] [address] 18893 -4463 09 Oct, 2015 Headache R51 [place] [id number] [place] [address] 18269- 0166 07 Oct, 2015 Essential hypertension I10 ; Type 2 diabetes mellitus without complication E11.9 ; Vitamin B12 deficiency E53.8 ; Acquired hypothyroidism E03.9 ; Iron deficiency anemia due to chronic blood loss D50.0 and Hyperlipidemia E78.5 [facility] [address] [place] [address] 10827- 0165 17 Sep, 2015 Essential hypertension I10 ; Vitamin B12 deficiency E53.8 ; Iron deficiency anemia due to chronic blood loss D50.0 ; Type 2 diabetes mellitus without complication E11.9 ; Hyperlipidemia E78.5 and Acquired hypothyroidism E03.9 [facility] [address], [place] [address]- 9546 Sep, [facility] [address] [place] [address] 91705- 9266 Sep, [facility] [address] [place] [address] 86415- 7366 Jul, [facility] [id number] [place] [address] 09313- 2107 Jun, [facility] [id number] [place] [address] 18329- 1009 Jun, [facility] [id number] [place] [address] 90563- 3496 Jun, Hyperlipidemia 272.4 ; Iron deficiency anemia 280.9 ; Hypothyroidism 244.9 ; Diabetes mellitus without mention of complication, type II or unspecified type, not stated as uncontrolled 250.00 and Hypertension 401.9 [facility] [id number] [place] [address] 77862- 7904 Jun, [facility] [id number] [place] [address] 32303- 0527 Jun, [facility] [id number] [place] [address] 74371- 9594 May, Hyperlipidemia 272.4 [facility] [id number] [place] [address] 77177- 3161 May, [facility] [address] [place] [address] 46120- 5114 May, [facility] [id number] [place] [address] 35430- 7954 Apr, Diabetes mellitus without mention of complication, type II or unspecified type, not stated as uncontrolled 250.00 ; Hypothyroidism 244.9 ; Hyperlipidemia 272.4 ; Pain in joint, lower leg 719.46 and RUQ pain 789.01 [facility] [id number] [place] [address] 95466- 9244 Mar, Sinusitis 473.9 [facility] [id number] [place] [address] 52702- 1014 Mar, [facility] [address] [facility] [id number], [place] [address]- 1412 Mar, [facility] [address] [facility] [id number], [place] [address]- 2455 Mar, Hematochezia 578.1 [facility] [address] [facility] [id number], [place] [address]- 5688 February, Sinusitis 473.9 [facility] [address] [id number], [place] [address]- 8744 February, [facility] [address] [id number] [place] [address]- 1539 Jan, [facility] [address] [facility] [id number], [place] [address]- 2890 Jan, [facility] [address] [id number] [address]- 0122 24 Dec, 2014 [facility] [address] [facility] [id number], [place] [address]- 7497 24 Dec, 2014 [facility] [address] [id number], [place] [address]- 8078 24 Dec, 2014 [facility] [address] [facility] [id number], [place] [address]- 3859 24 Dec, 2014 [facility] [address] [facility] [id number], [place] [address]- 1075 24 Dec, 2014 [facility] [address] [id number], [place] [address]- 0003 24 Dec, 2014 [facility] [address] [facility] [id number], [place] [address]- 3012 23 Dec, 2014 [facility] [address] [facility] [id number], [place] [address]- 1508 13 Dec, 2014 [facility] [address] [facility] [id number], [place] [address]- 3588 Dec, [facility] [address] [facility] [id number] [place] [address]- 1751 Dec, [facility] [place] [facility] [address] [id number] [place] [address]- 9309 Dec, [facility] [place] [facility] [address] [id number] [place] [address]- 4008 Nov, [facility] [place] [facility] [address] [id number] [place] [address]- 6323 Nov, [facility] [place] [facility] [address] [id number] [place] [address]- 5478 Nov, [facility] [place] [facility] [address] [id number] [place] [address]- 0118 Nov, [facility] [place] [facility] [address] [id number] [place] [address]- 1925 Oct, [facility] [place] [facility] [address] [facility] [id number] [place] [address]- 9379 Oct, [facility] [place] [facility] [address] [id number] [place] [address]- 0335 Oct, [facility] [place] [facility] [address] [facility] [id number] [place] [address]- 8565 Oct, [facility] [place] [facility] [address] [facility] [id number] [place] [address]- 0607 Oct, [facility] [place] [facility] [address] [facility] [id number] [place] [address] Oct, [facility] [place] [facility] [address] [id number] [place] [address] Sep, [facility] [place] [facility] [address] [id number] [place] [address] Sep, [facility] [place] [facility] [address] [id number] [place] [address] Sep, [facility] [place] [facility] [address] [facility] [id number] [place] [address] Sep, [facility] [place] [facility] [address] [id number] [place] [address] Sep, [facility] [place] [facility] [address] [id number] [place] [address] Sep, [facility] [place] [facility] [address] [id number] [place] [address] Sep, [facility] [place] [facility] [address] [id number] [place] [address] Aug, [facility] [place] [facility] [address] [id number] [place] [address] Aug, [facility] [place] [facility] [address] [id number] [place] [address] Aug, [facility] [place] [facility] [address] [id number] [place] [address] Aug, [facility] [place] [facility] [address] [id number] [place] [address] Aug, [facility] [place] [facility] [address] [id number] [place] [address] Aug, [facility] [place] [facility] [address] [id number], [place] [address] Aug, [facility] [place] [facility] [address] [id number], [place] [address] Aug, [facility] [place] [facility] [address] [id number], [place] [address] Aug, [facility] [place] [facility] [address] [id number] [place] [address] Aug, [facility] [place] [facility] [address] [id number], [place] [address] Aug, [facility] [place] [facility] [address] [id number], [place] [address] Aug, [facility] [place] [facility] [address] [id number], [place] [address] Aug, [facility] [place] [facility] [address] [id number] [place] [address] Aug, [facility] [place] [facility] [address] [id number] [place] [address] Jul, [facility] [place] [facility] [address] [id number] [place] [address] Jul, [facility] [place] [facility] [address] [id number] [place] [address] Jul, [facility] [place] [facility] [address] [id number] [place] [address] Jul, [facility] [place] [facility] [address] [id number] [place] [address] 24 Jun, 2014 [facility] [place] [facility] [address] [id number] [place] [address] 24 Jun, 2013 [facility] [place] [facility] [address] [id number] [place] [address] 23 Jun, 2013 [facility] [place] [facility] [address] [id number] [place] [address] 23 Jun, 2013 [facility] [place] [facility] [address] [id number] [place] [address] 19 Jun, 2013 [facility] [place] [facility] [address] [id number], [place] [address] 19 Jun, 2013 [facility] [place] [facility] [address] [id number], [place] [address] 11 Jun, 2013 [facility] [place] [facility] [address] [id number] [place] [address] 11 Jun, 2013 [facility] [place] [facility] [address] [id number] [place] [address] 11 Jun, 2013 [facility] [place] [facility] [address] [id number], [place] [address] 11 Jun, 2013 [facility] [place] [facility] [address] [id number] [place] [address] 10 Jun, 2014 [facility] [place] [facility] [address] [id number] [place] [address] Jun, [facility] [place] [facility] [address] [id number] [place] [address] Jun, [facility] [place] [facility] [address] [id number] [place] [address] Jun, [facility] [place] [facility] [address] [id number] [place] [address] May, [facility] [place] [facility] [address] [id number] [place] [address] May, [facility] [place] [facility] [address] [id number] [place] [address] May, [facility] [place] [facility] [address] [id number] [place] [address] May, [facility] [place] [facility] [address] [id number] [place] [address]71 May, [facility] [place] [facility] [address] [id number] [place] [address] May, [facility] [place] [facility] [address] [id number] [place] [address] Apr, [facility] [place] [facility] [address] [id number] [place] [address]- [address] Apr, [facility] [place] [facility] [address] [id number] [place] [address] Apr, [facility] [place] [facility] [address] [id number] [place] [address]95 Apr, [facility] [place] [facility] [address] [id number] [place] [address] Apr, [facility] [place] [facility] [address] [id number] [place] [address] Apr, [facility] [address] [id number] [place] [address] 1985 Apr, [facility] [place] [facility] [address] [id number] [place] [address] Apr, [facility] [place] [facility] [address] [id number] [place] [address] Apr, [facility] [place] [facility] [address] [id number] [place] [address] Apr, [facility] [place] [facility] [address] [id number] [place] [address] Apr, [facility] [place] [facility] [address] [id number] [place] [address] Mar, [facility] [place] [facility] [address] [id number] [place] [address] Mar, [facility] [place] [facility] [address] [id number] [place] [address] Mar, [facility] [place] [facility] [address] [id number] [place] [address] 9116 Mar, [facility] [place] [facility] [address] [id number] [place] [address] 2237 February, [facility] [address] [id number] [place] [address] February, [facility] [address] [id number] [place] [address] Jan, [facility] [place] [facility] [address] [id number] [place] [address] Jan, [facility] [address] [place] [id number] Jan [facility] [place] [facility] [address] [id number] [place] [address] Jan, [facility] [address] [id number] [place] [address] Jan, [facility] [place] [facility] [address] [id number] [place] [address]686 Jan, [facility] [place] [facility] [address] [id number] [place] [address] 18[address] Jan, [facility] [place] [facility] [address] [id number] [place] [address]- 74[address] Jan, [facility] [place] [facility] [address] [id number] [place] [address] 79[address] Jan, [facility] [place] [facility] [address] [id number] [place] [address]598 Jan, [facility] [place] [facility] [address] [id number] [place] [address]- 5[address] Jan, [facility] [place] [facility] [address] [id number] [place] [address] 7[address] Jan, [facility] [place] [facility] [address] [id number] [place] [address] 98[address] Jan, [facility] [place] [facility] [address] [id number] [place] [address]- [address] Jan, [facility] [place] [facility] [address] [id number] [place] [address]- 4465 Jan, [facility] [place] [facility] [address] [id number] [place] [address]- 1664 Jan, [facility] [place] [facility] [address] [id number] [place] [address]- 49[address] Jan, [facility] [place] [facility] [address] [id number] [place] [address] 1247 Dec, [facility] [place] [facility] [address] [id number] [place] [address]852 Dec, [facility] [place] [facility] [address] [id number] [place] [address] 68[address] Dec, [facility] [place] [facility] [address] [id number] [place] [address]- 1169 Dec, [facility] [place] [facility] [address] [id number] [place] [address] 3575 Dec, [facility] [place] [facility] [address] [id number] [place] [address] 9916 Dec, [facility] [place] [facility] [address] [id number] [place] [address]- 99[address] Dec, [facility] [place] [facility] [address] [id number] [place] [address] 377[address] Nov, [facility] [place] [facility] [address] [id number] [place] [address]654 Nov, [facility] [place] [facility] [address] [id number] [place] [address]- [address]44 Nov, [facility] [place] [facility] [address] [id number] [place] [address] 59[address] Nov, [facility] [place] [facility] [address] [id number] [place] [address]- [address]92 Nov, [facility] [place] [facility] [address] [id number] [place] [address]- 4318 Nov, [facility] [place] [facility] [address] [id number] [place] [address] 59[address] Nov, [facility] [place] [facility] [address] [id number] [place] [address]- 6771 Oct, [facility] [place] [facility] [address] [id number] [place] [address]- 46[address] Oct, [facility] [place] [facility] [address] [id number] [place] [address]- 3763 Sep, [facility] [place] [facility] [address] [id number] [place] [address]- [address] Sep, [facility] [place] [facility] [address] [id number] [place] [address]- [address] Sep, [facility] [place] [facility] [address] [id number] [place] [address] Sep, [facility] [place] [facility] [address] [id number] [place] [address]- 8845 Sep, [facility] [place] [facility] [address] [facility] [id number] [place] [address]- 8907 Sep, [facility] [place] [facility] [address] [id number], [place] [address] Sep, [facility] [place] [facility] [address] [id number] [place] [address] Sep, [facility] [place] [facility] [address] [id number], [place] [address]- [address]36 Sep, [facility] [place] [facility] [address] [id number], [place] [address] Sep, [facility] [place] [facility] [address] [id number], [place] [address]95 Aug, [facility] [place] [facility] [address] [id number], [place] [address] Aug, [facility] [place] [facility] [address] [id number], [place] [address]- [address]60 Aug, [facility] [place] [facility] [address] [id number], [place] [address]- [address] Aug, [facility] [place] [facility] [address] [id number], [place] [address] 79[address] Aug, [facility] [place] [facility] [address] [id number], [place] [address]- [address] Jul, [facility] [place] [facility] [address] [id number], [place] [address]- [address]35 30 Jul, 2013 [facility] [place] [facility] [address] [id number], [place] [address]- [address] 16 Jul, 2013 [facility] [place] [facility] [address] [facility] [id number] [place] [address] 16 Jul, 2013 IMMUNIZATIONS Vaccine Route Administration Date Status B12, VITAMIN (UP TO 1000 MCG) IM Intramuscular Jun 14, 2017 Administered SOCIAL HISTORY Never Assessed REASON FOR VISIT B12 injection -- madeline white PLAN OF CARE Activity Details Follow Up 4 Weeks Reason: VITAL SIGNS MEDICATIONS Unknown Medications RESULTS No Results PROCEDURES Procedure Date Ordered Result Body Site B12, VITAMIN (UP TO 1000 MCG) Jun 14, 2017 THER/PROPH/DIAG INJ, SC/IM Jun 14, 2017 INSTRUCTIONS MEDICATIONS ADMINISTERED No Known Medications [...] 2014 Surgical History carpal tunnel release 2016 Surgical History Right Rotator Cuff Repair 05/18/2017 Hospitalization History Surgeries
--- OUTSIDE RECORDS SUMMARY | 2018-03-22 06:34 | XMS REPORT ---
Author Author ESPINOZABRENTON KNUTSON Organization [facility] Address [address] [place] [address] Care Team Providers Care Rock Star Name Role Phone MARIIA DORANHANY Unavailable PROBLEMS Type Condition ICD9-CM Code RDR00-LQ Code Onset Dates Condition Status SNOMED Code Problem Essential hypertension I10 Active 97619481 Problem Acquired hypothyroidism E03.9 Active 398326690 Problem Hyperlipidemia E78.5 Active 61095119 Problem Frequent falls R29.6 Active 145265572 Problem Crohn's disease of both small and large intestine with complication K50.819 Active 49112623 Problem Anxiety F41.9 Active 64591736 Problem Major depressive disorder, recurrent episode, moderate F33.1 Active 282310738 Problem Chronic tension-type headache, intractable G44.221 Active 754501736 Problem Right upper quadrant pain R10.11 Active 41173199 Problem Fatty liver K76.0 Active 623699774 Problem Sensorineural hearing loss of right ear H90.41 Active 04163003 Problem Iron deficiency anemia due to chronic blood loss D50.0 Active 06889571 Problem Type 2 diabetes mellitus without complication E11.9 Active 18343056 Problem Periodic limb movement sleep disorder G47.61 Active 918619752 Problem Chronic diarrhea K52.9 Active 867045377 Problem Obstructive sleep apnea on CPAP G47.33 Active 66225685 Problem Vitamin B12 deficiency E53.8 Active 399580915 ALLERGIES No Information SOCIAL HISTORY Never Assessed PLAN OF CARE VITAL SIGNS MEDICATIONS Unknown Medications RESULTS No Results PROCEDURES No Known procedures IMMUNIZATIONS No Known Immunizations MEDICAL (GENERAL) HISTORY [...]
--- OUTSIDE RECORDS SUMMARY | 2018-03-22 06:34 | XMS REPORT ---
Author Author BRENTON DORAN Organization [facility] Address [address] [place] [address] Care Team Providers Care Supervisor Drying Name Role Phone BRENTON DORAN Unavailable PROBLEMS Type Condition ICD9-CM Code CKW88-BT Code Onset Dates Condition Status SNOMED Code Problem Anxiety F41.9 Active 75988214 Problem Chronic tension-type headache, intractable G44.221 Active 732454258 Problem Right upper quadrant pain R10.11 Active 29657798 Problem Vitamin D deficiency E55.9 Active 93806723 Problem Sensorineural hearing loss of right ear H90.41 Active 51339251 Problem BMI 50.0-59.9, adult Z68.43 Active 415634623 Problem Fatty liver K76.0 Active 268975976 Problem Frequent falls R29.6 Active 341499857 Problem Crohn's disease of both small and large intestine with complication K50.819 Active 56331917 Problem Type 2 diabetes mellitus with other specified complication E11.69 Active 734203118889 Problem Hyperlipidemia, unspecified E78.5 Active 89836907 Problem MACHUCA (nonalcoholic steatohepatitis) K75.81 Active 414807538 Problem Iron deficiency anemia due to chronic blood loss D50.0 Active 54183994 Problem Periodic limb movement sleep disorder G47.61 Active 813474941 Problem Obstructive sleep apnea on CPAP G47.33 Active 06835684 Problem Essential hypertension I10 Active 38815092 Problem Hyperlipidemia E78.5 Active 43749923 Problem Chronic diarrhea K52.9 Active 211308321 Problem Acquired hypothyroidism E03.9 Active 624263484 Problem Vitamin B12 deficiency E53.8 Active 404028025 Problem Major depressive disorder, recurrent episode, moderate F33.1 Active 670263643 ALLERGIES No Information ENCOUNTERS Encounter Location Date Diagnosis [facility] [address] [facility] [id number] [address] Jan, [facility] [id number] [place] [address] 81874 -0707 Jan, Diarrhea due to staphylococcus A04.8 and Diarrhea, unspecified type R19.7 [facility] [id number] [place] [address] 23228- 4702 Jan, Acquired hypothyroidism E03.9 ; Type 2 diabetes mellitus with other specified complication E11.69 ; Hyperlipidemia E78.5 ; Essential hypertension I10 ; Major depressive disorder, recurrent episode, moderate F33.1 and Vitamin D deficiency E55.9 [facility] [id number] [place] [address] 79695- 3220 Jan, Type 2 diabetes mellitus with other specified complication E11.69 ; Hyperlipidemia E78.5 ; Essential hypertension I10 ; Acquired hypothyroidism E03.9 ; Major depressive disorder, recurrent episode, moderate F33.1 ; Vitamin D deficiency E55.9 ; Sinus congestion R09.81 and BMI 50.0-59.9, adult Z68.43 [facility] [id number] [place] [address] 54715- 6571 Dec, [facility] [id number] [place] [address] 59666- 9260 Sep, Encounter for immunization Z23 [facility] [id number] [place] [address] 10954- 8266 Sep, [facility] [id number] [place] [address] 98621- 0768 Sep, Vitamin B12 deficiency E53.8 [facility] [id number] [place] [address] 35610- 0734 Aug, [facility] [id number] [place] [address] 70513- 2909 Aug, BMI 60.0-69.9, adult Z68.44 and Acute non-recurrent maxillary sinusitis J01.00 [facility] [id number] [place] [address] 89771- 1300 Aug, [facility] [id number] [place] [address] 27344- 1099 02 Aug, 2017 Medicare annual wellness visit, initial Z00.00 ; Screening for breast cancer Z12.31 ; Acquired hypothyroidism E03.9 and BMI 40.0-44.9, adult Z68.41 [facility] [id number] [place] [address] 34964- 6755 Jul, Actinic keratosis L57.0 [facility] [address] 28617- 2446 Jul, Actinic keratosis L57.0 [facility] [address] 41664- 8847 Jul, Type 2 diabetes mellitus with other specified complication E11.69 ; Actinic keratosis L57.0 and Hypothyroidism, unspecified E03.9 [facility] [address] 35860- 0165 Jul, [facility] [address] 60169- 6350 Jul, [facility] [address] 46213- 3025 Jul, Vitamin B12 deficiency E53.8 [facility] [id number] [place] [address] 67068- 3087 Jun, Acquired hypothyroidism E03.9 and Chronic tension-type headache, intractable G44.221 [facility] [id number] [place] [address] 13653- 6964 Jun, Back muscle spasm M62.830 and BMI 50.0-59.9, adult Z68.43 [facility] [address] 50971- 2119 Jun, Vitamin B12 deficiency E53.8 [facility] [id number] [place] [address] 75322- 2846 Jun, Crohn's disease of both small and large intestine with complication K50.819 [facility] [id number] [place] [address] 09240- 0467 Jun, Crohn's disease of both small and large intestine with complication K50.819 [facility] [id number] [place] [address] 42032- 3979 May, Hyperlipidemia E78.5 ; Anxiety F41.9 and Essential hypertension I10 [facility] [address] 27808- 1505 May, [facility] [address] 02244- 7021 May, Encounter for immunization Z23 and Vitamin B12 deficiency E53.8 [facility] [address] 95769- 1075 May, [facility] [address] 78419- 1825 Apr, [facility] [address] 91946- 6944 Apr, [facility] [address] 27621- 7551 Apr, Crohn's disease of both small and large intestine with complication K50.819 [facility] [id number] [place] [address] 11785- 3427 Apr, Vitamin B12 deficiency E53.8 [facility] [id number] [place] [address] 15077- 6514 Apr, Crohn's disease of both small and large intestine with complication K50.819 and Acute pain of right shoulder M25.511 [facility] [address] 66947- 1858 Mar, Type 2 diabetes mellitus without complication E11.9 ; Frequent falls R29.6 and Other chest pain R07.89 [facility] [address] 15157- 5452 14 Mar, 2017 [facility] [id number] [place] [address] 62363- 0788 Mar, [facility] [id number] [place] [address] 97738- 2234 Mar, Type 2 diabetes mellitus without complication E11.9 and Blurry vision, bilateral H53.8 [facility] [id number] [place] [address] 55096- 6399 Mar, Vitamin B12 deficiency E53.8 [facility] [id number] [place] [address] 06602- 1991 Mar, Crohn's disease of both small and large intestine with complication K50.819 [facility] [id number] [place] [address] 15017- 4534 February, Vitamin B12 deficiency E53.8 [facility] [id number] [place] [address] 89423- 1829 Jan, Crohn's disease of both small and large intestine with complication K50.819 [facility] [id number] [place] [address] 94654- 9886 Jan, Crohn's disease of both small and large intestine with complication K50.819 [facility] [id number] [place] [address] 75769 -7811 Jan, Dark brown-colored urine R82.99 and Acute suppurative otitis media of right ear without spontaneous rupture of tympanic membrane, recurrence not specified H66.001 [facility] [id number] [place] [address] 65190- 8132 Jan, Encounter for immunization Z23 [facility] [id number] [place] [address] 35198- 0175 Dec, Crohn's disease of both small and large intestine with complication K50.819 and Eustachian tube dysfunction, right H69.81 [facility] [id number] [place] [address] 42512- 7514 Dec, [facility] [address] [address]- 8860 Dec, Contusion of right knee, initial encounter S80.01XA [facility] [id number] [place] [address] 13844- 9741 Dec, [facility] [id number] [place] [address] 34722- 3685 Dec, Acute pain of right knee M25.561 [facility] [id number] [place] [address] 51261- 2429 Dec, Iron deficiency anemia due to chronic blood loss D50.0 [facility] [id number] [place] [address] 76887- 7818 Dec, Hyperlipidemia E78.5 ; Type 2 diabetes mellitus without complication E11.9 ; Vitamin B12 deficiency E53.8 ; Essential hypertension I10 ; Obstructive sleep apnea on CPAP G47.33 and Periodic limb movement sleep disorder G47.61 [facility] [id number] [place] [address] 87244- 8516 Nov, Type 2 diabetes mellitus without complication E11.9 ; Vitamin B12 deficiency E53.8 ; Hyperlipidemia E78.5 ; Essential hypertension I10 ; Obstructive sleep apnea on CPAP G47.33 ; Periodic limb movement sleep disorder G47.61 ; Anxiety F41.9 ; Acquired hypothyroidism E03.9 and Chronic tension-type headache, intractable G44.221 [facility] [id number] [place] [address] 70899- 0417 Nov, Crohn's disease of both small and large intestine with complication K50.819 [facility] [id number] [place] [address] 22576- 9232 Nov, Vitamin B12 deficiency E53.8 [facility] [address] [address]- 3399 Oct, [facility] [id number] [place] [address] 86479- 5746 Oct, Vitamin B12 deficiency E53.8 [facility] [address] [address]- 6193 Sep, [facility] [id number] [place] [address] 46578- 4862 Sep, Vitamin B12 deficiency E53.8 [facility] [id number] [place] [address] 57771- 3365 Aug, [facility] [id number] [place] [address] 16761- 3075 Aug, Vitamin B12 deficiency E53.8 [facility] [id number] [place] [address] 70707- 8769 Aug, [facility] [id number] [place] [address] 96520- 0504 Jul, Elevated ALT measurement R74.0 [facility] [id number] [place] [address] 25691- 6531 Jul, Hematuria R31.9 ; Acute right-sided thoracic back pain M54.6 ; Major depressive disorder, recurrent episode, moderate F33.1 and Elevated ALT measurement R74.0 [facility] [id number] [place] [address] 14164- 6351 Jul, [facility] [id number] [place] [address] 24756- 0473 Jul, Elevated ALT measurement R74.0 [facility] [address] [place] [address] 40111- 2901 Jul, Iron deficiency anemia due to chronic blood loss D50.0 [facility] [address] [place] [address] 97217- 9918 Jul, Type 2 diabetes mellitus without complication E11.9 ; Acquired hypothyroidism E03.9 ; Iron deficiency anemia due to chronic blood loss D50.0 ; Hyperlipidemia E78.5 and Essential hypertension I10 [facility] [id number] [place] [address] 29032- 3476 26 Jun, 2016 [facility] [id number] [place] [address] 66816- 0141 20 Jun, 2016 Vitamin B12 deficiency E53.8 [facility] [id number] [place] [address] 07576- 9052 16 Jun, 2016 Type 2 diabetes mellitus without complication E11.9 ; Acquired hypothyroidism E03.9 ; Iron deficiency anemia due to chronic blood loss D50.0 ; Hyperlipidemia E78.5 ; Essential hypertension I10 ; Chronic tension -type headache, intractable G44.221 ; Pulsatile tinnitus, bilateral H93.13 ; Obstructive sleep apnea on CPAP G47.33 and Major depressive disorder, recurrent episode, moderate F33.1 [facility] [id number] [place] [address] 32807- 4267 May, Vitamin B12 deficiency E53.8 [facility] [id number] [place] [address] 55968- 7866 May, [facility] [id number] [place] [address] 43189- 7525 Apr, Vitamin B12 deficiency E53.8 [facility] [id number] [place] [address] 33687- 6295 Apr, [facility] [id number] [place] [address] 54156- 0055 Mar, Chronic tension-type headache, intractable G44.221 and Major depressive disorder, recurrent episode, moderate F33.1 [facility] [address] [place] [address] 87998- 3233 14 Mar, 2016 Vitamin B12 deficiency E53.8 [facility] [id number] [place] [address] 33585- 1556 February, [facility] [id number] [place] [address] 30663- 7119 February, Vitamin B12 deficiency E53.8 [facility] [id number] [place] [address] 34736- 2690 February, [facility] [id number] [place] [address] 08683- 8190 27 Jan, 2016 Dysuria R30.0 [facility] [id number] [place] [address] 82409- 4020 22 Jan, 2016 Essential hypertension I10 and Type 2 diabetes mellitus without complication E11.9 [facility] [id number] [place] [address] 57931- 5346 15 Jan, 2016 Chronic diarrhea K52.9 [facility] [id number] [place] [address] 95651- 7368 13 Jan, 2016 [facility] [id number] [place] [address] 24329- 7864 Jan, Chronic diarrhea K52.9 [facility] [id number] [place] [address] 86199- 9906 Jan, [facility] [id number] [place] [address] 69305- 5093 12 Jan, 2016 Dysuria R30.0 [facility] [id number] [place] [address] 31880 2540 07 Jan, 2016 Vitamin B12 deficiency E53.8 [facility] [id number] [place] [address] 01433- 1954 07 Jan, 2016 Dysuria R30.0 and Iron deficiency anemia due to chronic blood loss D50.0 [facility] [id number] [place] [address] 23809- 2544 05 Jan, 2016 Dysuria R30.0 [facility] [id number] [place] [address] 32927 2542 04 Jan, 2016 [facility] [id number] [place] [address] 04805- 2975 15 Dec, 2015 [facility] [id number] [place] [address] 07232- 9909 Dec, Iron deficiency anemia due to chronic blood loss D50.0 [facility] [address] [place] [address] 21385- 6825 10 Dec, 2015 Dysuria R30.0 ; Fatigue R53.83 ; Hyperlipidemia E78.5 and Diarrhea R19.7 [facility] [address] [address]- 1078 09 Dec, 2015 [facility] [id number] [place] [address] 90745- 7939 Dec, [facility] [id number] [place] [address] 61000- 1614 Nov, Vitamin B12 deficiency E53.8 [facility] [id number] [place] [address] 82959- 9114 Oct, Vitamin B12 deficiency E53.8 [facility] [id number] [place] [address] 59977- 1243 Oct, [facility] [address] [place] [address] 03313 -6768 09 Oct, 2015 Headache R51 [facility] [id number] [place] [address] 04411- 2022 07 Oct, 2015 Essential hypertension I10 ; Type 2 diabetes mellitus without complication E11.9 ; Vitamin B12 deficiency E53.8 ; Acquired hypothyroidism E03.9 ; Iron deficiency anemia due to chronic blood loss D50.0 and Hyperlipidemia E78.5 [facility] [address] [place] [address] 07810- 5904 17 Sep, 2015 Essential hypertension I10 ; Vitamin B12 deficiency E53.8 ; Iron deficiency anemia due to chronic blood loss D50.0 ; Type 2 diabetes mellitus without complication E11.9 ; Hyperlipidemia E78.5 and Acquired hypothyroidism E03.9 [facility] [address], [place] [address]- 5918 Sep, [facility] [address] [place] [address] 76501- 7719 Sep, [facility] [address] [place] [address] 69284- 7249 Jul, [facility] [id number] [place] [address] 42308- 5351 Jun, [facility] [id number] [place] [address] 20261- 1395 Jun, [facility] [id number] [place] [address] 03258- 3935 Jun, Hyperlipidemia 272.4 ; Iron deficiency anemia 280.9 ; Hypothyroidism 244.9 ; Diabetes mellitus without mention of complication, type II or unspecified type, not stated as uncontrolled 250.00 and Hypertension 401.9 [facility] [id number] [place] [address] 96038- 5793 Jun, [facility] [id number] [place] [address] 53726- 2326 Jun, [facility] [id number] [place] [address] 29815- 4577 May, Hyperlipidemia 272.4 [facility] [id number] [place] [address] 32426- 2005 May, [facility] [address] [place] [address] 31362- 6843 May, [facility] [id number] [place] [address] 14552- 1853 Apr, Diabetes mellitus without mention of complication, type II or unspecified type, not stated as uncontrolled 250.00 ; Hypothyroidism 244.9 ; Hyperlipidemia 272.4 ; Pain in joint, lower leg 719.46 and RUQ pain 789.01 [facility] [id number] [place] [address] 17495- 6276 Mar, Sinusitis 473.9 [facility] [id number] [place] [address] 83707- 2668 Mar, [facility] [address] [facility] [id number] [address]- 0551 Mar, [facility] [address] [facility] [id number], [place] [address]- 2566 Mar, Hematochezia 578.1 [facility] [address] [facility] [id number], [place] [address]- 7485 February, Sinusitis 473.9 [facility] [address] [id number] [address]- 9457 February, [facility] [address] [id number] [place] [address]- 8599 Jan, [facility] [address] [facility] [id number] [address]- 9393 Jan, [facility] [id number], [place] [address]- 9934 24 Dec, 2014 [facility] [address] [facility] [id number], [place] [address]- 5332 24 Dec, 2014 [facility] [address] [id number], [place] [address]- 7027 24 Dec, 2014 [facility] [address] [facility] [id number], [place] [address]- 5654 24 Dec, 2014 [facility] [address] [facility] [id number], [place] [address]- 1302 24 Dec, 2014 [facility] [address] [id number] [address]- 6502 24 Dec, 2014 [facility] [address] [facility] [id number], [place] [address]- 9624 23 Dec, 2014 [facility] [address] [facility] [id number], [place] [address]- 1170 13 Dec, 2014 [facility] [address] [facility] [id number] [address]- 6908 Dec, [facility] [address] [facility] [id number] [place] [address]- 0498 Dec, [facility] [place] [facility] [address] [id number] [place] [address]- 5520 Dec, [facility] [place] [facility] [address] [id number] [place] [address]- 4992 Nov, [facility] [place] [facility] [address] [id number] [place] [address]- 8764 Nov, [facility] [place] [facility] [address] [id number] [place] [address]- 5066 Nov, [facility] [place] [facility] [address] [id number] [place] [address]- 5892 Nov, [facility] [place] [facility] [address] [id number] [place] [address]- 0627 Oct, [facility] [place] [facility] [address] [facility] [id number] [place] [address]- 5705 Oct, [facility] [place] [facility] [address] [id number] [place] [address]- 0241 Oct, [facility] [place] [facility] [address] [facility] [id number] [place] [address]- 7735 Oct, [facility] [place] [facility] [address] [facility] [id number] [place] [address]- 8949 Oct, [facility] [place] [facility] [address] [facility] [id number] [place] [address]- 7039 Oct, [facility] [place] [facility] [address] [id number] [place] [address]- 9525 Sep, [facility] [place] [facility] [address] [id number] [place] [address]- 0431 Sep, [facility] [place] [facility] [address] [id number] [place] [address]- 5106 Sep, [facility] [place] [facility] [address] [facility] [id number] [place] [address]- 1800 Sep, [facility] [place] [facility] [address] [id number] [place] [address]- 5839 Sep, [facility] [place] [facility] [address] [id number] [place] [address] Sep, [facility] [place] [facility] [address] [id number] [place] [address] Sep, [facility] [place] [facility] [address] [id number] [place] [address] Aug, [facility] [place] [facility] [address] [id number] [place] [address] Aug, [facility] [place] [facility] [address] [id number] [place] [address] Aug, [facility] [place] [facility] [address] [id number] [place] [address] Aug, [facility] [place] [facility] [address] [id number] [place] [address] Aug, [facility] [place] [facility] [address] [id number] [place] [address] Aug, [facility] [place] [facility] [address] [id number] [address] Aug, [facility] [place] [facility] [address] [id number], [place] [address] Aug, [facility] [place] [facility] [address] [id number], [place] [address] Aug, [facility] [place] [facility] [address] [id number] [place] [address] Aug, [facility] [place] [facility] [address] [id number], [place] [address] Aug, [facility] [place] [facility] [address] [id number], [place] [address] Aug, [facility] [place] [facility] [address] [id number], [place] [address] Aug, [facility] [place] [facility] [address] [id number] [place] [address] Aug, [facility] [place] [facility] [address] [id number] [place] [address] Jul, [facility] [place] [facility] [address] [id number] [place] [address] Jul, [facility] [place] [facility] [address] [id number] [place] [address] Jul, [facility] [place] [facility] [address] [id number] [place] [address] Jul, [facility] [place] [facility] [address] [id number] [place] [address] 24 Jun, 2014 [facility] [place] [facility] [address] [id number] [place] [address] 24 Jun, 2013 [facility] [place] [facility] [address] [id number] [place] [address]- [address] 23 Jun, 2013 [facility] [place] [facility] [address] [id number] [place] [address]- [address] 23 Jun, 2013 [facility] [place] [facility] [address] [id number] [place] [address] 19 Jun, 2013 [facility] [facility] [address] [id number], [place] [address] 19 Jun, 2013 [facility] [place] [facility] [address] [id number], [place] [address] 11 Jun, 2013 [facility] [place] [facility] [address] [id number] [place] [address] 11 Jun, 2013 [facility] [place] [facility] [address] [id number] [place] [address]65 11 Jun, 2013 [facility] [place] [facility] [address] [id number], [place] [address] 11 Jun, 2013 [facility] [place] [facility] [address] [id number] [place] [address] 10 Jun, 2014 [facility] [place] [facility] [address] [id number] [place] [address] Jun, [facility] [place] [facility] [address] [id number] [place] [address] Jun, [facility] [place] [facility] [address] [id number] [place] [address] Jun, [facility] [place] [facility] [address] [id number] [place] [address] May, [facility] [place] [facility] [address] [id number] [place] [address] May, [facility] [place] [facility] [address] [id number] [place] [address] May, [facility] [place] [facility] [address] [id number] [place] [address] 39[address] May, [facility] [place] [facility] [address] [id number] [place] [address] May, [facility] [place] [facility] [address] [id number] [place] [address] May, [facility] [place] [facility] [address] [id number] [place] [address] Apr, [facility] [place] [facility] [address] [id number] [place] [address] Apr, [facility] [place] [facility] [address] [id number] [place] [address] Apr, [facility] [place] [facility] [address] [id number] [place] [address]479 Apr, [facility] [place] [facility] [address] [id number] [place] [address] Apr, [facility] [place] [facility] [address] [id number] [place] [address] Apr, [facility] [address] [id number] [place] [address] Apr, [facility] [address] [id number] [place] [address] 44[address] Apr, [facility] [address] [id number] [place] [address] Apr, [facility] [address] [id number] [place] [address]- 4877 Apr, [facility] [address] [id number] [place] [address] Apr, [facility] [address] [id number] [place] [address] 26[address] Mar, [facility] [address] [id number] [place] [address]169 Mar, [facility] [address] [id number] [place] [address] Mar, [facility] [address] [id number] [place] [address] 1313 Mar, [facility] [address] [id number] [place] [address] 365[address] February, [facility] [address] [id number] [place] [address] February, [facility] [address] [id number] [place] [address]99 Jan, [facility] [address] [id number] [place] [address] Jan, [facility] [address] [place] [id number] Jan [facility] [place] [address] [id number] [place] [address] Jan, [facility] [address] [id number] [place] [address] Jan, [facility] [place] [facility] [address] [id number] [place] [address]- [address]39 Jan, [facility] [place] [facility] [address] [id number] [place] [address]- 5143 Jan, [facility] [place] [facility] [address] [id number] [place] [address] Jan, [facility] [place] [facility] [address] [id number] [place] [address] 3894 Jan, [facility] [place] [facility] [address] [id number] [place] [address] 6070 Jan, [facility] [place] [facility] [address] [id number] [place] [address]- 276[address] Jan, [facility] [place] [facility] [address] [id number] [place] [address]- 1434 Jan, [facility] [place] [facility] [address] [id number] [place] [address]- 1721 Jan, [facility] [place] [address] [id number] [place] [address]- 1289 Jan, [facility] [address] [id number] [place] [address]- 0566 Jan, [facility] [place] [facility] [address] [id number] [place] [address] 8052 Jan, [facility] [address] [id number] [place] [address]- 7516 Jan, [facility] [place] [facility] [address] [id number] [place] [address]- 3095 Dec, [facility] [place] [facility] [address] [id number] [place] [address]- 9161 Dec, [facility] [address] [id number] [place] [address]- 7872 Dec, [facility] [address] [id number] [place] [address]- 9086 Dec, [facility] [place] [facility] [address] [id number] [place] [address]- 5574 Dec, [facility] [facility] [address] [id number] [place] [address] 4996 Dec, [facility] [place] [facility] [address] [id number] [place] [address]- 1576 Dec, [facility] [place] [facility] [address] [id number] [place] [address] 7928 Nov, [facility] [facility] [address] [id number] [place] [address]- 5696 Nov, [facility] [address] [id number] [place] [address] 4213 Nov, [facility] [address] [id number] [place] [address] 75[address] Nov, [facility] [address] [id number] [place] [address]- 5889 Nov, [facility] [address] [id number] [place] [address]- 7759 Nov, [facility] [address] [id number] [place] [address] 2002 Nov, [facility] [facility] [address] [id number] [place] [address] 8572 Oct, [facility] [address] [id number] [place] [address]- 7412 Oct, [facility] [address] [id number] [place] [address]- 8393 Sep, [facility] [facility] [address] [id number] [place] [address]- 3929 Sep, [facility] [address] [id number] [place] [address]- 8[address] Sep, [facility] [address] [id number] [place] [address] Sep, [facility] [address] [id number] [place] [address]- 1904 Sep, [facility] [address] [facility] [id number] [place] [address]- 5526 Sep, [facility] [address] [id number], [place] [address] Sep, [facility] [address] [id number] [place] [address] Sep, [facility] [address] [id number], [place] [address] 3149 Sep, [facility] [address] [id number], [place] [address]- 5243 Sep, [facility] [address] [id number], [place] [address]- 3048 Aug, [facility] [address] [id number], [place] [address]- 2486 Aug, [facility] [address] [id number], [place] [address]- 1092 Aug, [facility] [address] [id number], [place] [address]- 0249 Aug, [facility] [address] [id number], [place] [address]- 4[address] Aug, [facility] [address] [id number], [place] [address]- 46[address] Jul, [facility] [address] [id number], [place] [address]- [address] 30 Jul, 2013 [facility] [address] [id number], [place] [address]- 2516 16 Jul, 2013 [facility] [address] [facility] [id number] [place] [address] 16 Jul, 2013 IMMUNIZATIONS No Known Immunizations SOCIAL HISTORY Never Assessed REASON FOR VISIT Lab (walk-in) PLAN OF CARE VITAL SIGNS MEDICATIONS Unknown Medications RESULTS Name Result Date Reference Range CBC 2017-06-14 WBC 5.1 3.4-10.8 RBC 4.02 3.77-5.28 Hemoglobin 12.5 11.1-15.9 Hematocrit 38.1 34.0-46.6 MCV 95 79-97 MCH 31.1 26.6-33.0 MCHC 32.8 31.5-35.7 RDW 14.3 12.3-15.4 Platelets 157 150-379 Neutrophils 67 Lymphs 23 Monocytes 7 Eos 3 Basos 0 Neutrophils (Absolute) 3.4 1.4-7.0 Lymphs (Absolute) 1.2 0.7-3.1 Monocytes(Absolute) 0.4 0.1-0.9 Eos (Absolute) 0.2 0.0-0.4 Baso (Absolute) 0.0 0.0-0.2 Immature Granulocytes 0 Immature Grans (Abs) 0.0 0.0-0.1 CMP 2017-06-14 Glucose, Serum 163 65-99 BUN 14 8-27 Creatinine, Serum 0.57 0.57-1.00 eGFR If NonAfricn Am 99 >59 eGFR If Africn Am 114 >59 BUN/Creatinine Ratio 25 12-28 Sodium, Serum 143 134-144 Potassium, Serum 4.1 3.5-5.2 Chloride, Serum 103 96-106 Carbon Dioxide, Total 23 18-29 Calcium, Serum 9.6 8.7-10.3 Protein, Total, Serum 6.2 6.0-8.5 Albumin, Serum 3.9 3.6-4.8 Globulin, Total 2.3 1.5-4.5 A/G Ratio 1.7 1.2-2.2 Bilirubin, Total 0.6 0.0-1.2 Alkaline Phosphatase, S 69 39-117 AST (SGOT) 25 0-40 ALT (SGPT) 15 0-32 PROCEDURES Procedure Date Ordered Result Body Site [facility] Jun 14, 2017 VENIPUNCT, ROUTINE* Jun 14, 2017 INSTRUCTIONS MEDICATIONS ADMINISTERED No [...]
--- OUTSIDE RECORDS SUMMARY | 2018-03-22 06:34 | XMS REPORT ---
Author Author ESPINOZA BRENTON Organization [facility] Address [address] [place] [address] Care Team Providers Care Dosier Operator Name Role Phone MARIIA DORANHANY Unavailable PROBLEMS Type Condition ICD9-CM Code UME52-[id number] Code Onset Dates Condition Status SNOMED Code Problem Iron deficiency anemia due to chronic blood loss D50.0 Active 21838985 Problem Major depressive disorder, recurrent episode, moderate F33.1 Active 928179897 Problem Acquired hypothyroidism E03.9 Active 794651257 Problem Frequent falls R29.6 Active 841401030 Problem Crohn's disease of both small and large intestine with complication K50.819 Active 54080968 Problem Anxiety F41.9 Active 91834666 Problem Type 2 diabetes mellitus without complication E11.9 Active 12914960 Problem Chronic tension-type headache, intractable G44.221 Active 947638509 Problem Chronic diarrhea K52.9 Active 381575588 Problem Periodic limb movement sleep disorder G47.61 Active 715875554 Problem Fatty liver K76.0 Active 419991990 Problem Essential hypertension I10 Active 16248180 Problem Hyperlipidemia E78.5 Active 72841087 Problem Sensorineural hearing loss of right ear H90.41 Active 56698106 Problem Right upper quadrant pain R10.11 Active 00855657 Problem Obstructive sleep apnea on CPAP G47.33 Active 66488080 Problem Vitamin B12 deficiency E53.8 Active 340850759 ALLERGIES Unknown Allergies SOCIAL HISTORY No smoking Hx information available PLAN OF CARE Activity Details Follow Up 4 Weeks Reason: VITAL SIGNS MEDICATIONS Unknown Medications RESULTS No Results PROCEDURES Procedure Date Ordered Related Diagnosis Body Site B12, VITAMIN (UP TO 1000 MCG) Sep 23, 2016 THER/PROPH/DIAG INJ, SC/IM Sep 23, 2016 IMMUNIZATIONS Vaccine Route Administration Date Status B12, VITAMIN (UP TO 1000 MCG) IM Intramuscular Sep 23, 2016 Administered
--- OUTSIDE RECORDS SUMMARY | 2018-03-22 06:34 | XMS REPORT ---
Author Author ESPINOZA BRENTON Organization [facility] Address [address] [place] [address] Care Team Providers Care Environmental Department Manager Name Role Phone ESPINOZA, BRENTON Unavailable PROBLEMS Type Condition ICD9-CM Code ESY05-OV Code Onset Dates Condition Status SNOMED Code Problem Essential hypertension I10 Active 33457337 Problem Acquired hypothyroidism E03.9 Active 765140110 Problem Hyperlipidemia E78.5 Active 05955574 Problem Frequent falls R29.6 Active 995386024 Problem Crohn's disease of both small and large intestine with complication K50.819 Active 75721345 Problem Anxiety F41.9 Active 39564174 Problem Major depressive disorder, recurrent episode, moderate F33.1 Active 423981106 Problem Chronic tension-type headache, intractable G44.221 Active 025087296 Problem Right upper quadrant pain R10.11 Active 13396062 Problem Fatty liver K76.0 Active 527765186 Problem Sensorineural hearing loss of right ear H90.41 Active 62023974 Problem Iron deficiency anemia due to chronic blood loss D50.0 Active 61056926 Problem Type 2 diabetes mellitus without complication E11.9 Active 99569139 Problem Periodic limb movement sleep disorder G47.61 Active 307778083 Problem Chronic diarrhea K52.9 Active 664813396 Problem Obstructive sleep apnea on CPAP G47.33 Active 73405862 Problem Vitamin B12 deficiency E53.8 Active 339870451 ALLERGIES No Information SOCIAL HISTORY Never Assessed PLAN OF CARE Activity Details Follow Up 4 Weeks Reason: VITAL SIGNS MEDICATIONS Unknown Medications RESULTS No Results PROCEDURES Procedure Date Ordered Result Body Site B12, VITAMIN (UP TO 1000 MCG) December 16, 2016 THER/PROPH/DIAG INJ, SC/IM December 16, 2016 IMMUNIZATIONS Vaccine Route Administration Date Status B12, VITAMIN (UP TO 1000 MCG) IM Intramuscular December 16, 2016 Administered MEDICAL (GENERAL) HISTORY Type Description [...]
--- OUTSIDE RECORDS SUMMARY | 2018-03-22 06:35 | XMS REPORT ---
Author Author ROMEL HAYNES [facility] Address [address] [place] [address] Care Team Providers Care Cart Attendant Name Role Phone ROMEL HAYNES Unavailable PROBLEMS Type Condition ICD9-CM Code IZA84-TN Code Onset Dates Condition Status SNOMED Code Problem Essential hypertension I10 Active 69862949 Problem Acquired hypothyroidism E03.9 Active 629608394 Problem Hyperlipidemia E78.5 Active 95063486 Problem Frequent falls R29.6 Active 416173819 Problem Crohn's disease of both small and large intestine with complication K50.819 Active 80650196 Problem Anxiety F41.9 Active 99102982 Problem Major depressive disorder, recurrent episode, moderate F33.1 Active 520881438 Problem Chronic tension-type headache, intractable G44.221 Active 768371405 Problem Right upper quadrant pain R10.11 Active 58244335 Problem Fatty liver K76.0 Active 603444756 Problem Sensorineural hearing loss of right ear H90.41 Active 49021573 Problem Iron deficiency anemia due to chronic blood loss D50.0 Active 40730637 Problem Type 2 diabetes mellitus without complication E11.9 Active 04879126 Problem Periodic limb movement sleep disorder G47.61 Active 072551914 Problem Chronic diarrhea K52.9 Active 564795836 Problem Obstructive sleep apnea on CPAP G47.33 Active 85141053 Problem Vitamin B12 deficiency E53.8 Active 794759244 ALLERGIES No Information SOCIAL HISTORY Never Assessed [...]
--- OUTSIDE RECORDS SUMMARY | 2018-03-22 06:35 | XMS REPORT ---
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 Phone MARIIA DORANHANY Unavailable PROBLEMS Type Condition ICD9-CM Code UWC56-GO Code Onset Dates Condition Status SNOMED Code Problem Anxiety F41.9 Active 48341110 Problem Chronic tension-type headache, intractable G44.221 Active 904472147 Problem Right upper quadrant pain R10.11 Active 06124541 Problem Vitamin D deficiency E55.9 Active 42248926 Problem Sensorineural hearing loss of right ear H90.41 Active 96230624 Problem BMI 50.0-59.9, adult Z68.43 Active 711497475 Problem Fatty liver K76.0 Active 186948108 Problem Frequent falls R29.6 Active 471290227 Problem Crohn's disease of both small and large intestine with complication K50.819 Active 70034729 Problem Type 2 diabetes mellitus with other specified complication E11.69 Active 584057182216 Problem Hyperlipidemia, unspecified E78.5 Active 06061110 Problem MACHUCA (nonalcoholic steatohepatitis) K75.81 Active 330674865 Problem Iron deficiency anemia due to chronic blood loss D50.0 Active 80400438 Problem Periodic limb movement sleep disorder G47.61 Active 155741117 Problem Obstructive sleep apnea on CPAP G47.33 Active 81640890 Problem Essential hypertension I10 Active 66732706 Problem Hyperlipidemia E78.5 Active 83116577 Problem Chronic diarrhea K52.9 Active 856634157 Problem Acquired hypothyroidism E03.9 Active 545790230 Problem Vitamin B12 deficiency E53.8 Active 411782215 Problem Major depressive disorder, recurrent episode, moderate F33.1 Active 843618254 ALLERGIES Substance Reaction Event Type Date Status Penicillin V Potassium Unknown Drug Allergy Aug, Active Niacin Unknown Drug Allergy Aug, Active Morphine Sulfate Unknown Drug Allergy Aug, Active Lipitor abdominal pain Drug Allergy Aug, Active Dilaudid Unknown Drug Allergy Aug, Active Bactrim Unknown Drug Allergy Aug, Active Amoxicillin Unknown Drug Allergy Aug, Active Adhesive Unknown Non Drug Allergy Aug, Active Sulfamethoxazole-Trimethoprim Unknown Drug Allergy Aug, Active Tetanus&diphtheria Toxoid Unknown Non Drug Allergy Aug, Active Influenza Virus Vacc,specific Got flu and was told to never get the vaccine again Non Drug Allergy Aug, Active ENCOUNTERS Encounter Location Date Diagnosis [place] [id number] [place] [address] 10432- 3721 Jan, [place] [id number] [place] [address] 64672- 0284 Jan, [facility] [place] [address] 47[address] -[address]180 Jan, Diarrhea due to staphylococcus A04.8 and Diarrhea, unspecified type R19.[address] 16102- 3339 Jan, Acquired hypothyroidism E03.9 ; Type 2 diabetes mellitus with other specified complication E11.69 ; Hyperlipidemia E78.5 ; Essential hypertension I10 ; Major depressive disorder, recurrent episode, moderate F33.1 and Vitamin D deficiency E55.9 [place] [id number] [place] [address] 99379- 2565 Jan, Type 2 diabetes mellitus with other specified complication E11.69 ; Hyperlipidemia E78.5 ; Essential hypertension I10 ; Acquired hypothyroidism E03.9 ; Major depressive disorder, recurrent episode, moderate F33.1 ; Vitamin D deficiency E55.9 ; Sinus congestion R09.81 and BMI 50.0-59.9, adult Z68.43 [place] [id number] [place] [address] 12784- 3277 Dec, [address] 64207- 7983 Sep, Encounter for immunization Z23 [address] 80895- 8413 Sep, [place] [address] [address] 9783 Sep, Vitamin B12 deficiency E53.8 [place] [id number] [place] [address] 98766- 4041 Aug, [place] [address] [id number] [place] [address] 74296- 0697 Aug, BMI 60.0-69.9, adult Z68.44 and Acute non-recurrent maxillary sinusitis J01.00 [place] [id number] [place] [address] 13265- 6901 Aug, [place] [address] [id number] [place] [address] 35318- 7592 Aug, Medicare annual wellness visit, initial Z00.00 ; Screening for breast cancer Z12.31 ; BMI 40.0-44.9, adult Z68.41 and Acquired hypothyroidism E03.9 [place] [id number] [place] [address] 91068- 6973 Jul, Actinic keratosis L57.0 [place] [id number] [place] [address] 92587- 9936 Jul, Actinic keratosis L57.0 [place] [address] [id number] [place] [address] 26858- 1555 Jul, Type 2 diabetes mellitus with other specified complication E11.69 ; Actinic keratosis L57.0 and Hypothyroidism, unspecified E03.9 [place] [address] [place] [address] 93237- 5909 Jul, [place] [address] [id number] [place] [address] 68054- 5322 Jul, [place] [address] [id number] [place] [address] 47853- 2693 Jul, Vitamin B12 deficiency E53.8 [place] [id number] [place] [address] 76224- 2806 Jun, Acquired hypothyroidism E03.9 and Chronic tension-type headache, intractable G44.221 [place] [address] 20390- 5822 Jun, Back muscle spasm M62.830 and BMI 50.0-59.9, adult Z68.43 [place] [address] 50074- 5234 Jun, Vitamin B12 deficiency E53.8 [place] [address] 16372- 4298 Jun, Crohn's disease of both small and large intestine with complication K50.819 [place] [address] 73561- 5659 Jun, Crohn's disease of both small and large intestine with complication K50.819 [place] [address] 19752- 1662 May, Hyperlipidemia E78.5 ; Anxiety F41.9 and Essential hypertension I10 [place] [address] 19552- 5647 May, [place] [address] 18934- 5011 May, Encounter for immunization Z23 and Vitamin B12 deficiency E53.8 [place] [id number] [place] [address] 30453- 5526 May, [place] [address] 01031- 6866 Apr, [place] [address] 33616- 7665 Apr, [place] [id number] [place] [address] 79075- 9354 Apr, Crohn's disease of both small and large intestine with complication K50.819 [place] [id number] [place] [address] 34407- 3898 Apr, Vitamin B12 deficiency E53.8 [place] [id number] [place] [address] 81140- 3786 Apr, Crohn's disease of both small and large intestine with complication K50.819 and Acute pain of right shoulder M25.511 [place] [id number] [place] [address] 09588- 8373 Mar, Type 2 diabetes mellitus without complication E11.9 ; Frequent falls R29.6 and Other chest pain R07.89 [place] [id number] [place] [address] 61518- 1612 Mar, [place] [id number] [place] [address] 35038- 8197 Mar, [place] [id number] [place] [address] 73295- 3791 Mar, Type 2 diabetes mellitus without complication E11.9 and Blurry vision, bilateral H53.8 [place] [address] [id number] [place] [address] 37120- 6461 Mar, Vitamin B12 deficiency E53.8 [place] [id number] [place] [address] 38966- 8644 Mar, Crohn's disease of both small and large intestine with complication K50.819 [place] [address] [place] [address] 43464- 3871 February, Vitamin B12 deficiency E53.8 [place] [address] [place] [address] 58879- 1929 Jan, Crohn's disease of both small and large intestine with complication K50.819 [place] [address] [place] [address] 63081- 4257 Jan, Crohn's disease of both small and large intestine with complication K50.819 [facility] [address] 87129 -7111 Jan, Dark brown-colored urine R82.99 and Acute suppurative otitis media of right ear without spontaneous rupture of tympanic membrane, recurrence not specified H66.001 [place] [address] 49978- 5114 Jan, Encounter for immunization Z23 [place] [address] 71860- 1353 Dec, Crohn's disease of both small and large intestine with complication K50.819 and Eustachian tube dysfunction, right H69.81 [place] [address] 24995- 9062 Dec, [place] [address] 29753- 2858 Dec, Contusion of right knee, initial encounter S80.01XA [place] [address] 99010- 0683 Dec, [place] [address] 13492- 2808 Dec, Acute pain of right knee M25.561 [place] [address] 31568- 4791 Dec, Iron deficiency anemia due to chronic blood loss D50.0 [place] [address] 70675- 8288 Dec, Hyperlipidemia E78.5 ; Type 2 diabetes mellitus without complication E11.9 ; Vitamin B12 deficiency E53.8 ; Essential hypertension I10 ; Obstructive sleep apnea on CPAP G47.33 and Periodic limb movement sleep disorder G47.61 [place] [address] 28047- 3918 Nov, Type 2 diabetes mellitus without complication E11.9 ; Vitamin B12 deficiency E53.8 ; Hyperlipidemia E78.5 ; Essential hypertension I10 ; Obstructive sleep apnea on CPAP G47.33 ; Periodic limb movement sleep disorder G47.61 ; Anxiety F41.9 ; Acquired hypothyroidism E03.9 and Chronic tension-type headache, intractable G44.221 [place] [address] 82495- 6170 10 Nov, 2016 Crohn's disease of both small and large intestine with complication K50.819 [place] [address] 65133- 7550 Nov, Vitamin B12 deficiency E53.8 [place] [address] 87317- 7568 Oct, [place] [address] 67191- 3645 Oct, Vitamin B12 deficiency E53.8 [place] [address] 25435- 3844 Sep, [place] [address] 42456- 2600 Sep, Vitamin B12 deficiency E53.8 [place] [address] 23380- 6288 Aug, [place] [address] 64849- 1235 Aug, Vitamin B12 deficiency E53.8 [place] [address] [id number] [place] [address] 12300- 5276 Aug, [place] [address] [id number] [place] [address] 97635- 0161 Jul, Elevated ALT measurement R74.0 [place] [address] 13250- 8235 Jul, Hematuria R31.9 ; Acute right-sided thoracic back pain M54.6 ; Major depressive disorder, recurrent episode, moderate F33.1 and Elevated ALT measurement R74.0 [place] [address] 97943- 5052 Jul, [place] [address] [address]- 6240 Jul, Elevated ALT measurement R74.0 [place] [address] [place] [address] 33784- 0884 14 Jul, 2016 Iron deficiency anemia due to chronic blood loss D50.0 [place] [address] [id number] [place] [address] 22455- 7404 Jul, Type 2 diabetes mellitus without complication E11.9 ; Acquired hypothyroidism E03.9 ; Iron deficiency anemia due to chronic blood loss D50.0 ; Hyperlipidemia E78.5 and Essential hypertension I10 [place] [address] [id number] [place] [address] 38005- 4605 Jun, [place] [address] [id number] [place] [address] 60375- 8900 Jun, Vitamin B12 deficiency E53.8 [place] [address] [place] [address] 72790- 9974 Jun, Type 2 diabetes mellitus without complication E11.9 ; Acquired hypothyroidism E03.9 ; Iron deficiency anemia due to chronic blood loss D50.0 ; Hyperlipidemia E78.5 ; Essential hypertension I10 ; Chronic tension -type headache, intractable G44.221 ; Pulsatile tinnitus, bilateral H93.13 ; Obstructive sleep apnea on CPAP G47.33 and Major depressive disorder, recurrent episode, moderate F33.1 [place] [address] [place] [address] 00254- 5779 May, Vitamin B12 deficiency E53.8 [place] [address], [place] [address]- 6503 May, [place] [address] [place] [address] 75170- 4073 Apr, Vitamin B12 deficiency E53.8 [place] [address], [place] [address]- 8671 Apr, [place] [address] [id number] [place] [address] 42371- 8706 28 Mar, 2016 Chronic tension-type headache, intractable G44.221 and Major depressive disorder, recurrent episode, moderate F33.1 [facility] [address] [id number] [place] [address] 44835- 7158 14 Mar, 2016 Vitamin B12 deficiency E53.8 [facility] [address] [id number] [place] [address] 66359- 6497 February, [facility] [address] [id number] [place] [address] 33301- 8520 February, Vitamin B12 deficiency E53.8 [facility] [address] 84803- 2495 February, [facility] [address] [id number] [place] [address] 40175- 4841 Jan, Dysuria R30.0 [facility] [address] [id number] [place] [address] 64135- 6113 22 Jan, 2016 Type 2 diabetes mellitus without complication E11.9 and Essential hypertension I10 [facility] [address] [place] [id number] [place] [address] 76012- 0487 15 Jan, 2016 Chronic diarrhea K52.9 [facility] [address] [id number] [place] [address] 97194- 6116 Jan, [facility] [address] [id number] [place] [address] 16326- 0219 12 Jan, 2016 Chronic diarrhea K52.9 [facility] [address] [id number] [place] [address] 38690- 1164 Jan, [facility] [address] [id number] [place] [address] 24739- 0870 12 Jan, 2016 Dysuria R30.0 [facility] [address] [id number] [place] [address] 46451- 0097 07 Jan, 2016 Vitamin B12 deficiency E53.8 [facility] [id number] [place] [address] 11895- 2503 07 Jan, 2016 Dysuria R30.0 and Iron deficiency anemia due to chronic blood loss D50.0 [facility] [address] [id number] [place] [address] 80028- 2351 05 Jan, 2016 Dysuria R30.0 [facility] [address] [id number] [place] [address] 30940- 3137 04 Jan, 2016 [facility] [address] [id number] [place] [address] 01160- 0348 15 Dec, 2015 [facility] [address] [id number] [place] [address] 84956- 6372 11 Dec, 2015 Iron deficiency anemia due to chronic blood loss D50.0 [place] [id number] [place] [address] 34128- 3631 10 Dec, 2015 Dysuria R30.0 ; Fatigue R53.83 ; Hyperlipidemia E78.5 and Diarrhea R19.7 [facility] [address] [id number] [place] [address] 71197- 6263 Dec, [place] [id number] [place] [address] 38198- 0996 Dec, [facility] [address] [place] [address] 01456- 8555 10 Nov, 2015 Vitamin B12 deficiency E53.8 [place] [id number] [place] [address] 89715- 4760 Oct, Vitamin B12 deficiency E53.8 [facility] [address] [place] [address] 43352- 4141 Oct, [facility] [address] [place] [address] 06559 -4503 09 Oct, 2015 Headache R51 [facility] [address] [place] [address] 08511- 3096 07 Oct, 2015 Essential hypertension I10 ; Type 2 diabetes mellitus without complication E11.9 ; Vitamin B12 deficiency E53.8 ; Acquired hypothyroidism E03.9 ; Iron deficiency anemia due to chronic blood loss D50.0 and Hyperlipidemia E78.5 [facility] [id number] [place] [address] 14866- 2121 Sep, Essential hypertension I10 ; Vitamin B12 deficiency E53.8 ; Iron deficiency anemia due to chronic blood loss D50.0 ; Type 2 diabetes mellitus without complication E11.9 ; Hyperlipidemia E78.5 and Acquired hypothyroidism E03.9 [facility] [id number] [address]- 0586 Sep, [facility] [address] [id number] [place] [address] 40245- 1345 Sep, [facility] [id number] [place] [address] 12548- 4485 Jul, [facility] [id number] [place] [address] 54491- 1831 Jun, [facility] [address] [id number] [place] [address] 65610- 3171 Jun, [facility] [address] [id number] [place] [address] 17537- 5812 Jun, Hyperlipidemia 272.4 ; Iron deficiency anemia 280.9 ; Hypothyroidism 244.9 ; Diabetes mellitus without mention of complication, type II or unspecified type, not stated as uncontrolled 250.00 and Hypertension 401.9 [facility] [address], [place] [address]- 8526 Jun, [facility] [address], [place] [address]- 4574 Jun, [facility] [address] [id number] [place] [address] 81515- 4619 May, Hyperlipidemia 272.4 [facility] [address], [place] [address]- 3448 May, [facility] [address] [id number] [place] [address] 63049- 2136 May, [facility] [id number] [place] [address] 53468- 2412 Apr, Diabetes mellitus without mention of complication, type II or unspecified type, not stated as uncontrolled 250.00 ; Hypothyroidism 244.9 ; Hyperlipidemia 272.4 ; Pain in joint, lower leg 719.46 and RUQ pain 789.01 [facility] [id number] [place] [address] 69512- 5813 Mar, Sinusitis 473.9 [facility] [id number] [place] [address] 974632- 1732 Mar, [facility] [address] [id number] [place] [address] 61393- 1272 Mar, [facility] [id number] [place] [address] 90034- 4983 Mar, Hematochezia 578.1 [facility] [id number] [place] [address] 37785- 2500 February, Sinusitis 473.9 [facility] [id number] [place] [address] 31204- 2136 February, [facility] [id number] [place] [address] 32585- 5581 Jan, [facility] [id number] [address]- 3231 Jan, [facility] [id number] [place] [address] 62204- 7587 Dec, [facility] [id number] [place] [address] 57020- 2017 Dec, [facility] [id number] [place] [address] 73813- 4039 Dec, [facility] [address], [place] [address]- 4655 Dec, [facility] [place] [facility] [address] [id number] [place] [address]- 0590 Dec, [facility] [place] [facility] [address] [id number] [place] [address]- 0715 24 Dec, 2014 [facility] [place] [facility] [address] [id number] [place] [address]- 4150 Dec, [facility] [place] [facility] [address] [id number] [place] [address]- 7205 Dec, [facility] [place] [facility] [address] [id number] [place] [address]- 7235 Dec, [facility] [place] [facility] [address] [id number] [place] [address]- 3602 Dec, [facility] [place] [facility] [address] [id number] [place] [address]- 5439 Dec, [facility] [place] [facility] [address] [id number] [place] [address]- 7729 Nov, [facility] [place] [facility] [address] [id number] [place] [address]- 8034 Nov, [facility] [place] [facility] [address] [id number] [place] [address]- 3136 Nov, [facility] [place] [facility] [address] [id number] [place] [address]- 6163 Nov, [facility] [place] [facility] [address] [id number] [place] [address]- 5871 Oct, [facility] [place] [facility] [address] [id number] [place] [address]- 7662 Oct, [facility] [place] [facility] [address] [id number] [place] [address]- 1437 Oct, [facility] [place] [facility] [address] [id number] [place] [address]- 1417 Oct, [facility] [place] [facility] [address] [id number] [address]- 2214 Oct, [facility] [place] [facility] [address] [id number] [place] [address]- 6879 Oct, [facility] [place] [facility] [address] [id number] [place] 7651 Sep, [facility] [place] [facility] [address] [id number] [place] [address]- 4737 Sep, [facility] [place] [facility] [address] [id number] [place] [address]- 4946 Sep, [facility] [place] [facility] [address] [id number] [place] [address]- 8073 Sep, [facility] [place] [facility] [address] [id number] [place] [address]- 2219 Sep, [facility] [place] [facility] [address] [id number] [place] [address]- 0144 Sep, [facility] [place] [facility] [address] [id number] [place] [address]- 6414 Sep, [facility] [place] [facility] [address] [id number] [place] [address]- 6746 Aug, [facility] [place] [facility] [address] [id number] [place] [address]- 3903 Aug, [facility] [place] [facility] [address] [id number] [place] [address]- 6557 Aug, [facility] [place] [facility] [address] [id number] [place] [address]- 4026 Aug, [facility] [place] [facility] [address] [id number] [place] [address]- 5820 Aug, [facility] [place] [facility] [address] [id number] [place] [address]- 2703 Aug, [facility] [place] [facility] [address] [id number] [place] [address]- 5643 Aug, [facility] [place] [facility] [address] [id number] [place] [address]- 5369 18 Aug, 2014 [facility] [place] [facility] [address] [id number] [place] [address]- 2375 Aug, [facility] [place] [facility] [address] [id number] [place] [address]- 9207 Aug, [facility] [place] [facility] [address] [id number] [place] [address] Aug, [facility] [place] [facility] [address] [id number] [place] [address] Aug, [facility] [place] [facility] [address] [id number] [place] [address] Aug, [facility] [place] [facility] [address] [id number] [place] [address] Aug, [facility] [place] [facility] [address] [id number] [place] [address] Jul, [facility] [place] [facility] [address] [id number] [place] [address] Jul, [facility] [place] [facility] [address] [id number] [place] [address] Jul, [facility] [place] [facility] [address] [id number] [place] [address] Jul, [facility] [place] [facility] [address] [id number] [place] [address] 24 Jun, 2014 [facility] [place] [facility] [address] [id number] [place] [address] 24 Jun, 2014 [facility] [place] [facility] [address] [id number] [place] [address] 23 Jun, 2014 [facility] [place] [facility] [address] [id number] [place] [address] 23 Jun, 2014 [facility] [place] [facility] [address] [id number] [place] [address] 19 Jun, 2014 [facility] [place] [facility] [address] [id number] [place] [address] 19 Jun, 2013 [facility] [place] [facility] [address] [id number] [place] [address] 11 Jun, 2013 [facility] [place] [facility] [address] [id number] [place] [address] 11 Jun, 2013 [facility] [place] [facility] [address] [id number] [place] [address] 11 Jun, 2013 [facility] [place] [facility] [address] [id number] [place] [address] 11 Jun, 2014 [facility] [place] [facility] [address] [id number] [place] [address] 10 Jun, 2014 [facility] [place] [facility] [address] [id number] [place] [address] Jun, 2013 [facility] [place] [facility] [address] [id number] [place] [address] Jun, [facility] [place] [facility] [address] [id number] [place] [address] Jun, [facility] [place] [facility] [address] [id number] [place] [address] 14 May, 2014 [facility] [place] [facility] [address] [id number] [place] [address] May, [facility] [place] [facility] [address] [id number] [place] [address] May, [facility] [place] [facility] [address] [id number] [place] [address] May, [facility] [place] [facility] [address] [id number] [place] [address] May, [facility] [place] [facility] [address] [id number] [place] [address] May, [facility] [place] [facility] [address] [id number] [place] [address] Apr, [facility] [place] [facility] [address] [id number] [place] [address] Apr, [facility] [place] [facility] [address] [id number] [place] [address] Apr, [facility] [place] [facility] [address] [id number] [place] [address] Apr, [facility] [place] [facility] [address] [id number] [place] [address] Apr, [facility] [place] [facility] [address] [id number] [place] [address] Apr, [facility] [place] [facility] [address] [id number] [place] [address] Apr, [facility] [place] [facility] [address] [id number] [place] [address] Apr, [facility] [place] [facility] [address] [id number] [place] [address] Apr, [facility] [place] [facility] [address] [id number] [place] [address] Apr, [facility] [place] [facility] [address] [id number] [place] [address] Apr, [facility] [place] [facility] [address] [id number] [place] [address] Mar, [facility] [place] [facility] [address] [id number] [place] [address] Mar, [facility] [place] [facility] [address] [id number] [place] [address] Mar, [facility] [place] [facility] [address] [id number] [place] [address] Mar, [facility] [place] [facility] [address] [id number] [place] [address] February, [facility] [place] [facility] [address] [id number] [place] [address] February, [facility] [address] [id number] [place] [address] Jan, [facility] [address] [id number] [place] [address] Jan, [facility] [id number] Jan [facility] [address] [id number] [place] [address] Jan, [facility] [address] [id number] [place] [address] Jan, [facility] [address] [id number] [place] [address] Jan, [facility] [address] [id number] [place] [address] Jan, [facility] [address] [id number] [place] [address] Jan, [facility] [address] [id number] [place] [address] Jan, [facility] [address] [id number] [place] [address] Jan, [facility] [address] [id number] [place] [address] Jan, [facility] [address] [id number] [place] [address] Jan, [facility] [address] [id number] [place] [address] Jan, [facility] [address] [id number] [place] [address] Jan, [facility] [address] [id number] [place] [address] Jan, [facility] [place] [facility] [address] [id number] [place] [address] Jan, [facility] [place] [facility] [address] [id number] [place] [address] Jan, [facility] [place] [facility] [address] [id number] [place] [address] Dec, [facility] [place] [facility] [address] [id number] [place] [address] Dec, [facility] [place] [facility] [address] [id number] [place] [address] 80[address] Dec, [facility] [place] [facility] [address] [id number] [place] [address] Dec, [facility] [place] [facility] [address] [id number] [place] [address] Dec, [facility] [place] [facility] [address] [id number] [place] [address] Dec, [facility] [place] [facility] [address] [id number] [place] [address]- 94[address] Dec, [facility] [place] [facility] [address] [id number] [place] [address] Nov, [facility] [place] [facility] [address] [id number] [place] [address]- [address] Nov, [facility] [place] [facility] [address] [id number] [place] [address] Nov, [facility] [place] [facility] [address] [id number] [place] [address]- [address] Nov, [facility] [place] [facility] [address] [id number] [place] [address]- 79[address] Nov, [facility] [place] [facility] [address] [id number] [place] [address] 20 Nov, 2013 [facility] [place] [facility] [address] [id number] [place] [address] Nov, [facility] [address] [id number] [place] [address] Oct, [facility] [address] [id number] [place] [address] Oct, [facility] [address] [id number] [place] [address] Sep, [facility] [address] [id number] [place] [address] Sep, [facility] [address] [id number] [place] [address] Sep, [facility] [address] [id number] [place] [address] Sep, [facility] [address] [id number] [place] [address]- [address] Sep, [facility] [address] [id number] [place] [address]- 0868 Sep, [facility] [address] [id number] [place] [address] Sep, [facility] [address] [facility] [id number] [place] [address]- [address] Sep, [facility] [address] [id number] [place] [address]- [address] Sep, [facility] [address] [id number] [place] [address]- [address] Sep, [facility] [place] [facility] [address] [id number] [place] [address]- 0[address] Aug, [facility] [place] [facility] [address] [id number] [place] [address]- [address] Aug, [facility] [address] [id number] [place] [address] Aug, [facility] [address] [facility] [id number] [address] Aug, [facility] [address] [facility] [id number], [place] [address] Aug, [facility] [address] [id number] [address] Jul, [facility] [id number], [place] [address] Jul, [facility] [address] [facility] [id number], [place] [address] Jul, [facility] [address] [id number], [place] [address] Jul, IMMUNIZATIONS Vaccine Route Administration Date Status B12, VITAMIN (UP TO 1000 MCG) IM Intramuscular Aug 11, 2017 Administered SOCIAL HISTORY Never Assessed REASON FOR VISIT MEDICARE PHYSICAL--[facility] PLAN OF CARE Activity Details Follow Up annually for preventive care, sooner for chronic health maintenance Reason: VITAL SIGNS Height 62 in 2017-08-11 Weight 311.3 lbs 2017-08-11 Temperature 98.2 degrees Fahrenheit 2017-08-11 Heart Rate 76 bpm 2017-08-11 Respiratory Rate 20 2017-08-11 BMI 56.93 kg/m2 2017-08-11 Blood pressure systolic 124 mmHg 2017-08-11 Blood pressure diastolic 70 mmHg 2017-08-11 MEDICATIONS Medication Instructions Dosage Frequency Start Date End Date Duration Status MetFORMIN HCl ER 500 mg Orally 2 times a day 2 tablets 12h Apr, Active Vitamin C 500 MG Active Fiber - Active Cyanocobalamin 1000 MCG/ML 1 Active Imiquimod 5 % Externally Three times a Week 1 application to affected area at bedtime Jul, Aug, 12 Weeks Active Mercaptopurine 50 MG Active Ferrous Sulfate 325 (65 Fe) MG Orally Once a day 1 tablet 24h 11 Dec, 2015 Active Lisinopril 40 mg Orally Once a day 1 tablet 24h 90 days Active Zoloft 100 mg Orally Once a day 2 tablets 24h 90 days Active Januvia 100 mg Orally Once a day 1 tablet 24h Mar, 90 days Active Zetia 10 mg Orally Once a day 1 tablet 24h 90 days Active Levothyroxine Sodium 100 MCG Orally Once a day 1 tablet on an empty stomach in the morning 24h 30 Active RESULTS Name Result Date Reference Range TSH 2017-08-11 TSH 1.47 0.40-4.50 Mammogram, Bilateral Screening 2017-08-16 PROCEDURES Procedure Date Ordered Result Body Site ANNUAL MILADYSMUNDO VST; PERSNL PPS INIT Aug 11, 2017 FALL RISK ASSESSMENT DOCD Aug 11, 2017 VENIPUNCT, ROUTINE* Aug 11, 2017 [facility] Aug [facility], 2017 PT TOBACCO SCREEN RCVD TLK Aug 11, 2017 THER/PROPH/DIAG INJ, SC/IM Aug 11, 2017 B12, VITAMIN (UP TO 1000 MCG) Aug 11, 2017 INSTRUCTIONS MEDICATIONS ADMINISTERED No Known Medications [...]
--- OUTSIDE RECORDS SUMMARY | 2018-03-22 06:36 | XMS REPORT ---
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 Name Role Phone ESPINOZAMARIIA KNUTSONHANY Unavailable PROBLEMS Type Condition ICD9-CM Code BTS26-CB Code Onset Dates Condition Status SNOMED Code Problem Major depressive disorder, recurrent episode, moderate F33.1 Active 089350065 Problem Right upper quadrant pain R10.11 Active 88288246 Problem Anxiety F41.9 Active 37742082 Problem BMI 50.0-59.9, adult Z68.43 Active 106814116 Problem Fatty liver K76.0 Active 137525580 Problem Type 2 diabetes mellitus with other specified complication E11.69 Active 258267608755 Problem Crohn's disease of both small and large intestine with complication K50.819 Active 93341337 Problem Chronic tension-type headache, intractable G44.221 Active 098631115 Problem Hyperlipidemia, unspecified E78.5 Active 78950104 Problem Frequent falls R29.6 Active 421031980 Problem Obstructive sleep apnea on CPAP G47.33 Active 00749954 Problem MACHUCA (nonalcoholic steatohepatitis) K75.81 Active 999335155 Problem Sensorineural hearing loss of right ear H90.41 Active 07554152 Problem Periodic limb movement sleep disorder G47.61 Active 453333133 Problem Vitamin B12 deficiency E53.8 Active 357453823 Problem Essential hypertension I10 Active 39869691 Problem Iron deficiency anemia due to chronic blood loss D50.0 Active 54121145 Problem Hyperlipidemia E78.5 Active 50236602 Problem Chronic diarrhea K52.9 Active 927297419 Problem Acquired hypothyroidism E03.9 Active 815530033 ALLERGIES No Information ENCOUNTERS Encounter Location Date Diagnosis [facility] [address] [facility] [id number] [address] Jan, [facility] [address] [address] Dec, [facility] [address] [address] Sep, Encounter for immunization Z23 [facility] [id number] [place] [address] 20330- 0271 Sep, [facility] [id number] [place] [address] 12470- 0281 Sep, Vitamin B12 deficiency E53.8 [facility] [id number] [place] [address] 13129- 2475 Aug, [facility] [id number] [place] [address] 01932- 3740 Aug, BMI 60.0-69.9, adult Z68.44 and Acute non-recurrent maxillary sinusitis J01.00 [facility] [id number] [place] [address] 39078- 4766 Aug, [facility] [id number] [place] [address] 18333- 7306 Aug, Medicare annual wellness visit, initial Z00.00 ; Screening for breast cancer Z12.31 ; BMI 40.0-44.9, adult Z68.41 and Acquired hypothyroidism E03.9 [facility] [address] [address] 5[address] Jul, Actinic keratosis L57.0 [facility] [id number] [place] [address] 39633- 5686 Jul, Actinic keratosis L57.0 [facility] [id number] [place] [address] 65028- 9676 Jul, Type 2 diabetes mellitus with other specified complication E11.69 ; Actinic keratosis L57.0 and Hypothyroidism, unspecified E03.9 [facility] [id number] [place] [address] 34444- 0949 Jul, [facility] [id number] [place] [address] 22523- 4430 Jul, [facility] [facility] [address] 54199- 2644 Jul, Vitamin B12 deficiency E53.8 [facility] [id number] [place] [address] 40653- 1590 Jun, Acquired hypothyroidism E03.9 and Chronic tension-type headache, intractable G44.221 [facility] [address] 40559- 2991 Jun, Back muscle spasm M62.830 and BMI 50.0-59.9, adult Z68.43 [facility] [address] 64963- 3587 Jun, Vitamin B12 deficiency E53.8 [facility] [address] 70149- 0554 Jun, Crohn's disease of both small and large intestine with complication K50.819 [facility] [address] 47571- 5348 Jun, Crohn's disease of both small and large intestine with complication K50.819 [facility] [id number] [place] [address] 82487- 0289 May, Hyperlipidemia E78.5 ; Anxiety F41.9 and Essential hypertension I10 [facility] [address] 87431- 1388 May, [facility] [address] 82553- 6197 May, Encounter for immunization Z23 and Vitamin B12 deficiency E53.8 [facility] [id number] [place] [address] 01530- 7269 May, [facility] [id number] [place] [address] 10107- 2702 Apr, [facility] [id number] [place] [address] 86452- 2312 Apr, [facility] [id number] [place] [address] 86193- 4773 Apr, Crohn's disease of both small and large intestine with complication K50.819 [facility] [id number] [place] [address] 22910- 6907 Apr, Vitamin B12 deficiency E53.8 [facility] [id number] [place] [address] 79564- 8269 Apr, Crohn's disease of both small and large intestine with complication K50.819 and Acute pain of right shoulder M25.511 [facility] [id number] [place] [address] 57921- 0657 Mar, Type 2 diabetes mellitus without complication E11.9 ; Frequent falls R29.6 and Other chest pain R07.89 [facility] [id number] [place] [address] 80760- 8350 Mar, [facility] [id number] [place] [address] 25232- 7456 Mar, [facility] [id number] [place] [address] 94721- 9009 Mar, Type 2 diabetes mellitus without complication E11.9 and Blurry vision, bilateral H53.8 [facility] [address] [place] [address] 73428- 8478 Mar, Vitamin B12 deficiency E53.8 [facility] [address] [place] [address] 06185- 2543 Mar, Crohn's disease of both small and large intestine with complication K50.819 [facility] [address] [place] [address] 18909- 9121 February, Vitamin B12 deficiency E53.8 [facility] [id number] [place] [address] 25031- 1005 Jan, Crohn's disease of both small and large intestine with complication K50.819 [facility] [id number] [place] [address] 47396- 3038 Jan, Crohn's disease of both small and large intestine with complication K50.819 [facility] [id number] [place] [address] 00506 -1423 Jan, Dark brown-colored urine R82.99 and Acute suppurative otitis media of right ear without spontaneous rupture of tympanic membrane, recurrence not specified H66.001 [facility] [id number] [place] [address] 14941- 3431 Jan, Encounter for immunization Z23 [facility] [address] 61435- 9002 Dec, Crohn's disease of both small and large intestine with complication K50.819 and Eustachian tube dysfunction, right H69.81 [facility] [id number] [place] [address] 05979- 1734 Dec, [facility] [address] 14993- 9895 Dec, Contusion of right knee, initial encounter S80.01XA [facility] [id number] [place] [address] 06105- 3281 Dec, [facility] [id number] [place] [address] 15739- 4165 Dec, Acute pain of right knee M25.561 [facility] [id number] [place] [address] 93455- 4580 Dec, Iron deficiency anemia due to chronic blood loss D50.0 [facility] [id number] [place] [address] 54560- 8000 Dec, Hyperlipidemia E78.5 ; Type 2 diabetes mellitus without complication E11.9 ; Vitamin B12 deficiency E53.8 ; Essential hypertension I10 ; Obstructive sleep apnea on CPAP G47.33 and Periodic limb movement sleep disorder G47.61 [facility] [id number] [place] [address] 17074- 0880 22 Nov, 2016 Type 2 diabetes mellitus without complication E11.9 ; Vitamin B12 deficiency E53.8 ; Hyperlipidemia E78.5 ; Essential hypertension I10 ; Obstructive sleep apnea on CPAP G47.33 ; Periodic limb movement sleep disorder G47.61 ; Anxiety F41.9 ; Acquired hypothyroidism E03.9 and Chronic tension-type headache, intractable G44.221 [facility] [address] 43178- 4211 10 Nov, 2016 Crohn's disease of both small and large intestine with complication K50.819 [facility] [address] 48051- 7345 10 Nov, 2016 Vitamin B12 deficiency E53.8 [facility] [address] 76615- 1412 Oct, [facility] [address] 77519- 6414 Oct, Vitamin B12 deficiency E53.8 [place] [address] 22864- 3907 Sep, [facility] [address] 67535- 6819 15 Sep, 2016 Vitamin B12 deficiency E53.8 [facility] [address] 19769- 9738 22 Aug, 2016 [facility] [id number] [place] [address] 28645- 8009 14 Aug, 2016 Vitamin B12 deficiency E53.8 [facility] [place] [address] 21804- 6068 10 Aug, 2016 [facility] [address] 93201- 4653 24 Jul, 2016 Elevated ALT measurement R74.0 [place] [address] [place] [address]- 0137 Jul, Hematuria R31.9 ; Acute right-sided thoracic back pain M54.6 ; Major depressive disorder, recurrent episode, moderate F33.1 and Elevated ALT measurement R74.0 [facility] [id number] [place] [address] 22491- 2249 Jul, [facility] [place] [address] 71006- 7665 Jul, Elevated ALT measurement R74.0 [facility] [address] 55860- 6616 14 Jul, 2016 Iron deficiency anemia due to chronic blood loss D50.0 [facility] [id number] [place] [address] 56370- 6073 14 Jul, 2016 Type 2 diabetes mellitus without complication E11.9 ; Acquired hypothyroidism E03.9 ; Iron deficiency anemia due to chronic blood loss D50.0 ; Hyperlipidemia E78.5 and Essential hypertension I10 [facility] [id number] [place] [address] 44148- 7111 Jun, [facility] [id number] [place] [address] 69485- 1245 Jun, Vitamin B12 deficiency E53.8 [facility] [id number] [place] [address] 16329- 4159 16 Jun, 2016 Type 2 diabetes mellitus without complication E11.9 ; Acquired hypothyroidism E03.9 ; Iron deficiency anemia due to chronic blood loss D50.0 ; Hyperlipidemia E78.5 ; Essential hypertension I10 ; Chronic tension -type headache, intractable G44.221 ; Pulsatile tinnitus, bilateral H93.13 ; Obstructive sleep apnea on CPAP G47.33 and Major depressive disorder, recurrent episode, moderate F33.1 [facility] [place] [id number] [place] [address] 05505- 1031 May, Vitamin B12 deficiency E53.8 [facility] [place] [id number] [place] [address] 29494- 7148 May, [facility] [id number] [place] [address] 35968- 3736 Apr, Vitamin B12 deficiency E53.8 [facility] [id number] [place] [address] 76206- 2189 05 Apr, 2016 [facility] [id number] [place] [address] 87681- 7319 Mar, Chronic tension-type headache, intractable G44.221 and Major depressive disorder, recurrent episode, moderate F33.1 [facility] [id number] [place] [address] 59309- 8615 14 Mar, 2016 Vitamin B12 deficiency E53.8 [facility] [id number] [place] [address] 56063- 9954 February, [facility] [id number] [place] [address] 84733- 7707 February, Vitamin B12 deficiency E53.8 [facility] [id number] [place] [address] 51009- 4374 February, [facility] [id number] [place] [address] 82471- 9655 Jan, Dysuria R30.0 [facility] [id number] [place] [address] 69932- 5522 Jan, Type 2 diabetes mellitus without complication E11.9 and Essential hypertension I10 [facility] [id number] [place] [address] 31685- 9363 15 Jan, 2016 Chronic diarrhea K52.9 [facility] [id number] [place] [address] 88228- 5477 Jan, [facility] [id number] [place] [address] 20454- 6478 Jan, Chronic diarrhea K52.9 [facility] [id number] [place] [address] 03682- 7619 Jan, [facility] [address] [address]- 9069 12 Jan, 2016 Dysuria R30.0 [facility] [id number] [place] [address] 40432- 3275 07 Jan, 2016 Vitamin B12 deficiency E53.8 [facility] [address] [place] [address] 66693- 0721 07 Jan, 2016 Dysuria R30.0 and Iron deficiency anemia due to chronic blood loss D50.0 [facility] [id number] [place] [address] 16936- 1851 05 Jan, 2016 Dysuria R30.0 [facility] [id number] [place] [address] 98605- 4849 Jan, [facility] [id number] [place] [address] 98230- 6714 15 Dec, 2015 [facility] [place] [id number] [place] [address] 82953- 8397 Dec, Iron deficiency anemia due to chronic blood loss D50.0 [facility] [id number] [place] [address] 71796- 5017 10 Dec, 2015 Dysuria R30.0 ; Fatigue R53.83 ; Hyperlipidemia E78.5 and Diarrhea R19.7 [facility] [place] [address] [place] [address] 27109- 3184 Dec, [facility] [place] [id number] [place] [address] 83487- 6096 Dec, [facility] [address] [place] [address] 35082- 2633 Nov, Vitamin B12 deficiency E53.8 [place] [address] [place] [address] 55877- 0350 Oct, Vitamin B12 deficiency E53.8 [facility] [address] [place] [address] 05746- 0867 Oct, [facility] [address] [address]4768 09 Oct, 2015 Headache R51 [facility] [id number] [place] [address] 20889- 1194 Oct, Essential hypertension I10 ; Type 2 diabetes mellitus without complication E11.9 ; Vitamin B12 deficiency E53.8 ; Acquired hypothyroidism E03.9 ; Iron deficiency anemia due to chronic blood loss D50.0 and Hyperlipidemia E78.5 [facility] [id number] [place] [address] 84460- 7983 Sep, Essential hypertension I10 ; Vitamin B12 deficiency E53.8 ; Iron deficiency anemia due to chronic blood loss D50.0 ; Type 2 diabetes mellitus without complication E11.9 ; Hyperlipidemia E78.5 and Acquired hypothyroidism E03.9 [facility] [address] [address]- 9587 Sep, [facility] [id number] [place] [address] 60878- 7735 Sep, [facility] [address] [place] [address] 05745- 6187 Jul, [facility] [id number] [place] [address] 41496- 1179 Jun, [facility] [address] [address]- 3108 Jun, [facility] [id number] [place] [address] 64558- 9182 15 Jun, 2015 Hyperlipidemia 272.4 ; Iron deficiency anemia 280.9 ; Hypothyroidism 244.9 ; Diabetes mellitus without mention of complication, type II or unspecified type, not stated as uncontrolled 250.00 and Hypertension 401.9 [facility] [address] [address] 7923 Jun, [facility] [address] [place] [address] 75851- 0201 Jun, [facility] [id number] [place] [address] 67016- 3884 May, Hyperlipidemia 272.4 [facility] [id number] [place] [address] 00489- 3727 May, [facility] [id number] [place] [address] 50693- 9311 May, [facility] [address] 33779- 2110 Apr, Diabetes mellitus without mention of complication, type II or unspecified type, not stated as uncontrolled 250.00 ; Hypothyroidism 244.9 ; Hyperlipidemia 272.4 ; Pain in joint, lower leg 719.46 and RUQ pain 789.01 [facility] [id number] [place] [address] 86741- 6907 Mar, Sinusitis 473.9 [facility] [id number] [place] [address] 27014- 6412 Mar, [facility] [id number] [place] [address] 38760- 0411 Mar, [facility] [id number] [place] [address] 70626- 3699 Mar, Hematochezia 578.1 [facility] [id number] [place] [address] 79046- 7258 February, Sinusitis 473.9 [facility] [id number] [place] [address] 64548- 1567 February, [facility] [id number] [place] [address] 02765- 6780 Jan, [facility] [id number] [place] [address] 63786- 0927 Jan, [facility] [address] [place] [address] 35729- 7782 Dec, [facility] [id number] [place] [address] 92583- 7858 Dec, [facility] [place] [facility] [address] [id number] [place] [address]- 2939 Dec, [facility] [place] [facility] [address] [id number] [place] [address]- 2336 Dec, [facility] [place] [facility] [address] [id number] [place] [address]- 4145 Dec, [facility] [place] [facility] [address] [id number] [place] [address]- 1212 Dec, [facility] [place] [facility] [address] [id number] [place] [address]- 0353 Dec, [facility] [place] [facility] [address] [id number] [place] [address]- 8482 Dec, [facility] [place] [facility] [address] [facility] [id number] [place] [address]- 8333 Dec, [facility] [place] [facility] [address] [id number] [place] [address]- 0038 Dec, [facility] [place] [facility] [address] [id number] [place] [address]- 3876 Dec, [facility] [place] [facility] [address] [facility] [id number] [place] [address]- 9147 Nov, [facility] [place] [facility] [address] [id number] [place] [address]- 2633 Nov, [facility] [place] [facility] [address] [id number] [place] [address]- 9270 Nov, [facility] [place] [facility] [address] [id number] [place] [address]- 3637 Nov, [facility] [place] [facility] [address] [id number] [place] [address]- 9153 Oct, [facility] [place] [facility] [address] [id number] [place] [address]- 1266 Oct, [facility] [place] [facility] [address] [id number] [place] [address]- 4805 Oct, [facility] [place] [facility] [address] [id number] [place] [address]- 5561 Oct, [facility] [place] [facility] [address] [id number] [place] [address]- 2974 Oct, [facility] [place] [facility] [address] [id number] [place] [address]- 3283 Oct, [facility] [place] [facility] [address] [id number] [place] [address]- 7522 Sep, [facility] [place] [facility] [address] [id number] [place] [address]- 3315 Sep, [facility] [place] [facility] [address] [id number] [place] [address]- 0357 Sep, [facility] [place] [facility] [address] [id number] [place] [address]- 5501 Sep, [facility] [place] [facility] [address] [id number] [place] [address]- 2740 Sep, [facility] [place] [facility] [address] [id number] [place] [address]- 4243 Sep, [facility] [place] [facility] [address] [id number] [place] [address]- 9876 Sep, [facility] [place] [facility] [address] [id number] [place] [address]- 0060 Aug, [facility] [place] [facility] [address] [id number] [place] [address]- 5225 Aug, [facility] [place] [facility] [address] [id number] [place] [address]- 2464 Aug, [facility] [place] [facility] [address] [id number] [place] [address]- 4853 Aug, [facility] [place] [facility] [address] [id number] [place] [address]- 8396 Aug, [facility] [place] [facility] [address] [id number] [place] [address]- 7824 Aug, [facility] [place] [facility] [address] [id number] [place] [address]- 1290 Aug, [facility] [place] [facility] [address] [id number] [place] [address]- 3153 Aug, [facility] [place] [facility] [address] [id number] [place] [address]- 1502 Aug, [facility] [place] [facility] [address] [id number] [place] [address]- 2110 Aug, [facility] [place] [facility] [address] [id number] [place] [address]- 3523 Aug, [facility] [place] [facility] [address] [id number] [place] [address]- 8780 Aug, [facility] [place] [facility] [address] [id number] [place] [address]- 3582 Aug, [facility] [place] [facility] [address] [id number] [place] [address]- 8135 Aug, [facility] [place] [facility] [address] [id number] [place] [address]- 5515 Jul, [facility] [place] [facility] [address] [id number] [place] [address]- 9628 Jul, [facility] [place] [facility] [address] [id number] [place] [address] Jul, [facility] [place] [facility] [address] [id number] [place] [address] Jul, [facility] [place] [facility] [address] [id number] [place] [address] Jun, [facility] [place] [facility] [address] [id number] [place] [address] Jun, [facility] [place] [facility] [address] [id number] [place] [address] 23 Jun, 2013 [facility] [place] [facility] [address] [id number] [place] [address] 23 Jun, 2013 [facility] [place] [facility] [address] [id number] [place] [address] 19 Jun, 2013 [facility] [place] [facility] [address] [id number] [place] [address] 19 Jun, 2013 [facility] [place] [facility] [address] [id number] [place] [address] 11 Jun, 2013 [facility] [place] [facility] [address] [id number] [place] [address] 11 Jun, 2013 [facility] [place] [facility] [address] [id number] [place] [address] 11 Jun, 2013 [facility] [place] [facility] [address] [id number] [place] [address] 11 Jun, 2013 [facility] [place] [facility] [address] [id number] [place] [address] 10 Jun, 2013 [facility] [place] [facility] [address] [id number] [place] [address] 10 Jun, 2013 [facility] [place] [facility] [address] [id number] [place] [address] 09 Jun, 2013 [facility] [place] [facility] [address] [id number] [place] [address] 09 Jun, 2013 [facility] [place] [facility] [address] [id number] [place] [address] 14 May, 2014 [facility] [place] [facility] [address] [id number] [place] [address] 14 May, 2014 [facility] [place] [facility] [address] [id number] [place] [address] 13 May, 2014 [facility] [place] [facility] [address] [id number] [place] [address] May, [facility] [place] [facility] [address] [id number] [place] [address] May, [facility] [place] [facility] [address] [id number] [place] [address] May, [facility] [place] [facility] [address] [id number] [place] [address] Apr, [facility] [place] [facility] [address] [id number] [place] [address] Apr, [facility] [place] [facility] [address] [id number] [place] [address] Apr, [facility] [place] [facility] [address] [id number] [place] [address] Apr, [facility] [place] [facility] [address] [id number] [place] [address] Apr, [facility] [place] [facility] [address] [id number] [place] [address] Apr, [facility] [place] [facility] [address] [id number] [place] [address] Apr, [facility] [place] [facility] [address] [id number] [place] [address] Apr, [facility] [place] [facility] [address] [id number] [place] [address] Apr, [facility] [place] [facility] [address] [id number] [place] [address] Apr, [facility] [place] [facility] [address] [id number] [place] [address] Apr, [facility] [place] [facility] [address] [id number] [place] [address] Mar, [facility] [place] [facility] [address] [id number] [place] [address] Mar, [facility] [place] [facility] [address] [id number] [place] [address] Mar, [facility] [address] [id number] [place] [address] Mar, [facility] [address] [id number] [place] [address] February, [facility] [address] [id number] [place] [address] February, [facility] [address] [id number] [place] [address] Jan, [facility] [address] [id number] [place] [address] Jan, [facility] [address] [place] [id number] Jan [facility] [address] [id number] [place] [address] Jan, [facility] [address] [id number] [place] [address] Jan, [facility] [address] [id number] [place] [address] Jan, [facility] [address] [id number] [place] [address] Jan, [facility] [address] [id number] [place] [address] Jan, [facility] [address] [id number] [place] [address] Jan, [facility] [address] [id number] [place] [address] Jan, [facility] [address] [id number] [place] [address] Jan, [facility] [address] [id number] [place] [address] Jan, [facility] [address] [id number] [place] [address] 07 Jan, 2014 [facility] [place] [facility] [address] [id number] [place] [address] Jan, [facility] [place] [facility] [address] [id number] [place] [address] Jan, [facility] [place] [facility] [address] [id number] [place] [address] Jan, [facility] [place] [facility] [address] [id number] [place] [address] Jan, [facility] [place] [facility] [address] [id number] [place] [address] Dec, [facility] [place] [facility] [address] [id number] [place] [address] Dec, [facility] [place] [facility] [address] [id number] [place] [address] Dec, [facility] [place] [facility] [address] [id number] [place] [address] Dec, [facility] [place] [facility] [address] [id number] [place] [address] Dec, [facility] [place] [facility] [address] [facility] [id number] [place] [address] Dec, [facility] [place] [facility] [address] [id number] [place] [address] Dec, [facility] [place] [facility] [address] [id number] [place] [address] Nov, [facility] [place] [facility] [address] [id number] [place] [address] Nov, [facility] [place] [facility] [address] [id number] [place] [address] Nov, [facility] [place] [facility] [address] [id number] [place] [address] Nov, [facility] [place] [facility] [address] [id number] [place] [address] Nov, [facility] [place] [facility] [address] [id number] [place] [address] Nov, [facility] [place] [facility] [address] [id number] [place] [address] Nov, [facility] [place] [facility] [address] [id number] [place] [address] Oct, [facility] [address] [id number] [place] [address] 73[address] Oct, [facility] [place] [facility] [address] [id number] [place] [address]- [address] Sep, [facility] [place] [facility] [address] [id number] [place] [address] Sep, [facility] [address] [id number] [place] [address] Sep, [facility] [place] [facility] [address] [id number] [place] [address] Sep, [facility] [place] [facility] [address] [id number] [place] [address] 2547 Sep, [facility] [place] [facility] [address] [id number] [place] [address] Sep, [facility] [place] [facility] [address] [id number] [place] [address] 2547 Sep, [facility] [place] [facility] [address] [id number] [place] [address] 2546 Sep, [facility] [place] [facility] [address] [id number] [place] [address] 2546 Sep, [facility] [place] [facility] [address] [id number] [place] [address] Sep, [facility] [place] [facility] [address] [id number] [place] [address] Aug, [facility] [address] [id number] [place] [address] Aug, [facility] [address] [id number] [place] [address] Aug, [facility] [id number] [place] [address] Aug, [facility] [id number] [address] Aug, [facility] [id number] [place] [address] Jul, [facility] [id number] [place] [address] Jul, [facility] [id number] [place] [address] Jul, [facility] [address] [id number] [place] [address] Jul, IMMUNIZATIONS No Known Immunizations SOCIAL HISTORY Never Assessed REASON FOR VISIT triage - CBowmanRN PLAN OF CARE VITAL SIGNS MEDICATIONS Unknown Medications RESULTS No Results PROCEDURES No Known procedures INSTRUCTIONS MEDICATIONS ADMINISTERED No Known Medications MEDICAL [...]
--- OUTSIDE RECORDS SUMMARY | 2018-03-22 06:36 | XMS REPORT ---
Author Author ESPINOZA BRENTON Organization [facility] [place] Address [address] [place] [address] Care Team Providers Care Trade Sales Assistant Name Role Phone MARIIA DORANHANY Unavailable PROBLEMS Type Condition ICD9-CM Code PIQ98-KL Code Onset Dates Condition Status SNOMED Code Problem Major depressive disorder, recurrent episode, moderate F33.1 Active 437252765 Problem Right upper quadrant pain R10.11 Active 12417699 Problem Anxiety F41.9 Active 41922862 Problem BMI 50.0-59.9, adult Z68.43 Active 917873436 Problem Type 2 diabetes mellitus with other specified complication E11.69 Active 183614939137 Problem Crohn's disease of both small and large intestine with complication K50.819 Active 18384848 Problem Chronic tension-type headache, intractable G44.221 Active 865637395 Problem Hyperlipidemia, unspecified E78.5 Active 56266206 Problem Frequent falls R29.6 Active 231405948 Problem Periodic limb movement sleep disorder G47.61 Active 774142430 Problem Obstructive sleep apnea on CPAP G47.33 Active 72554857 Problem Fatty liver K76.0 Active 421410842 Problem Sensorineural hearing loss of right ear H90.41 Active 54776210 Problem Vitamin B12 deficiency E53.8 Active 218132685 Problem Essential hypertension I10 Active 50216948 Problem Iron deficiency anemia due to chronic blood loss D50.0 Active 34061424 Problem Hyperlipidemia E78.5 Active 49465269 Problem Chronic diarrhea K52.9 Active 985359660 Problem Acquired hypothyroidism E03.9 Active 877934385 ALLERGIES No Information SOCIAL HISTORY Never Assessed PLAN OF CARE VITAL SIGNS MEDICATIONS No Known Medications RESULTS Name Result Date Reference Range [facility] 2017-03-15 Glucose, Serum 245 65-99 BUN 10 8-27 Creatinine, Serum 0.68 0.57-1.00 eGFR If NonAfricn Am 93 >59 eGFR If Africn Am 108 >59 BUN/Creatinine Ratio 15 12-28 Sodium, Serum 143 134-144 Potassium, Serum 4.2 3.5-5.2 Chloride, Serum 106 96-106 Carbon Dioxide, Total 23 18-29 Calcium, Serum 9.2 8.7-10.3 Protein, Total, Serum 6.1 6.0-8.5 Albumin, Serum 3.8 3.6-4.8 Globulin, Total 2.3 1.5-4.5 A/G Ratio 1.7 1.2-2.2 Bilirubin, Total 0.5 0.0-1.2 Alkaline Phosphatase, S 74 39-117 AST (SGOT) 39 0-40 ALT (SGPT) 24 0-32 CBC w/ MANUAL DIFF 2017-03-15 WBC 5.0 3.4-10.8 RBC 4.25 3.77-5.28 Hemoglobin 13.0 11.1-15.9 Hematocrit 39.6 34.0-46.6 MCV 93 79-97 MCH 30.6 26.6-33.0 MCHC 32.8 31.5-35.7 RDW 13.7 12.3-15.4 Platelets 200 150-379 Neutrophils 64 Lymphs 28 Monocytes 5 Eos 3 Basos 0 Neutrophils Absolute 3.2 1.4-7.0 Lymphs (Absolute) 1.4 0.7-3.1 Monocytes(Absolute) 0.3 0.1-0.9 Eos (Absolute Value) 0.1 0.0-0.4 Baso(Absolute) 0.0 0.0-0.2 Differential Comment Note: RBC Comment Note: Normal Platelet Comment Note: Adequate PROCEDURES Procedure Date Ordered Result Body Site LAB NOT BILLED BY [facility] March 15, 2017 VENIPUNCT, ROUTINE* March 15, 2017 IMMUNIZATIONS No Known Immunizations MEDICAL (GENERAL) HISTORY [...]
--- OUTSIDE RECORDS SUMMARY | 2018-03-22 06:37 | XMS REPORT ---
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 Name Role Phone JUDY GUMARO Unavailable PROBLEMS Type Condition ICD9-CM Code LSJ32-[place] Code Onset Dates Condition Status SNOMED Code Problem Anxiety F41.9 Active 31417274 Problem Chronic tension-type headache, intractable G44.221 Active 797871167 Problem Right upper quadrant pain R10.11 Active 60289049 Problem Vitamin D deficiency E55.9 Active 78223288 Problem Sensorineural hearing loss of right ear H90.41 Active 98125254 Problem BMI 50.0-59.9, adult Z68.43 Active 658126031 Problem Fatty liver K76.0 Active 279606811 Problem Frequent falls R29.6 Active 340364006 Problem Crohn's disease of both small and large intestine with complication K50.819 Active 99197725 Problem Type 2 diabetes mellitus with other specified complication E11.69 Active 972684866282 Problem Hyperlipidemia, unspecified E78.5 Active 02849592 Problem MACHUCA (nonalcoholic steatohepatitis) K75.81 Active 227746308 Problem Iron deficiency anemia due to chronic blood loss D50.0 Active 36553349 Problem Periodic limb movement sleep disorder G47.61 Active 783172949 Problem Obstructive sleep apnea on CPAP G47.33 Active 40666305 Problem Essential hypertension I10 Active 55500939 Problem Hyperlipidemia E78.5 Active 45231798 Problem Chronic diarrhea K52.9 Active 556002862 Problem Acquired hypothyroidism E03.9 Active 756747993 Problem Vitamin B12 deficiency E53.8 Active 512514561 Problem Major depressive disorder, recurrent episode, moderate F33.1 Active [id number] ALLERGIES No Information ENCOUNTERS Encounter Location Date Diagnosis [facility] [address] [facility] [id number] [place] [address] Jan, [facility] [id number] [place] [address] 22041- 1457 Jan, Type 2 diabetes mellitus with other specified complication E11.69 ; Hyperlipidemia E78.5 ; Essential hypertension I10 ; Acquired hypothyroidism E03.9 ; Major depressive disorder, recurrent episode, moderate F33.1 ; Vitamin D deficiency E55.9 ; Sinus congestion R09.81 and BMI 50.0-59.9, adult Z68.43 [place] [address] [address]68- 7267 Dec, [place] [address] 74416- 4395 Sep, Encounter for immunization Z23 [address] [address]47- 8898 Sep, [place] [id number] [place] [address] 31791- 7786 Sep, Vitamin B12 deficiency E53.8 [place] [address] 75137- 3665 Aug, [address] 53870- 6161 Aug, BMI 60.0-69.9, adult Z68.44 and Acute non-recurrent maxillary sinusitis J01.00 [place] [id number] [place] [address] 94497- 7475 14 Aug, [address] 48856- 7696 Aug, Medicare annual wellness visit, initial Z00.00 ; Screening for breast cancer Z12.31 ; Acquired hypothyroidism E03.9 and BMI 40.0-44.9, adult Z68.41 [place] [id number] [place] [address] 34957- 2860 Jul, Actinic keratosis L57.0 [place] [id number] [place] [address] 08386- 6711 Jul, Actinic keratosis L57.0 [place] [id number] [place] [address] 33375- 1934 Jul, Type 2 diabetes mellitus with other specified complication E11.69 ; Actinic keratosis L57.0 and Hypothyroidism, unspecified E03.9 [place] [address] 42085- 8367 Jul, [place] [address] 61476- 9070 Jul, [place] [address] 72984- 8928 Jul, Vitamin B12 deficiency E53.8 [place] [address] 45979- 1425 Jun, Acquired hypothyroidism E03.9 and Chronic tension-type headache, intractable G44.221 [place] [address] 93237- 0867 Jun, Back muscle spasm M62.830 and BMI 50.0-59.9, adult Z68.43 [place] [address] 17832- 9138 Jun, Vitamin B12 deficiency E53.8 [place] [address] 18094- 9224 Jun, Crohn's disease of both small and large intestine with complication K50.819 [place] [address] [place] [place] [id number] [place] [address] 75741- 4171 Jun, Crohn's disease of both small and large intestine with complication K50.819 [place] [address] 79218- 5391 May, Hyperlipidemia E78.5 ; Anxiety F41.9 and Essential hypertension I10 [place] [address] 24988- 2361 May, [place] [address] [place] [id number] [place] [address] 37996- 2014 May, Encounter for immunization Z23 and Vitamin B12 deficiency E53.8 [place] [id number] [place] [address] 72363- 6827 May, [place] [id number] [place] [address] 69480- 1943 Apr, [place] [id number] [place] [address] 55898- 3549 Apr, [place] [id number] [place] [address] 86304- 4411 Apr, Crohn's disease of both small and large intestine with complication K50.819 [place] [id number] [place] [address] 43661- 5668 Apr, Vitamin B12 deficiency E53.8 [place] [address] [place] [id number] [place] [address] 55416- 0138 Apr, Crohn's disease of both small and large intestine with complication K50.819 and Acute pain of right shoulder M25.511 [place] [address] [id number] [place] [address] 03578- 0468 Mar, Type 2 diabetes mellitus without complication E11.9 ; Frequent falls R29.6 and Other chest pain R07.89 [place] [address] [place] [id number] [place] [address] 43276- 9431 Mar, [place] [address] [id number] [place] [address] 40656- 3640 Mar, [place] [address] [id number] [place] [address] 18587- 2702 Mar, Type 2 diabetes mellitus without complication E11.9 and Blurry vision, bilateral H53.8 [place] [address] [place] [id number] [place] [address] 77065- 1049 Mar, Vitamin B12 deficiency E53.8 [place] [address] [place] [id number] [place] [address] 05196- 5791 Mar, Crohn's disease of both small and large intestine with complication K50.819 [place] [address] [place] [id number] [place] [address] 42733- 4600 February, Vitamin B12 deficiency E53.8 [place] [address] [place] [id number] [place] [address] 73892- 3119 Jan, Crohn's disease of both small and large intestine with complication K50.819 [place] [address] [place] [id number] [place] [address] 36342- 9354 Jan, Crohn's disease of both small and large intestine with complication K50.819 [facility] [id number] [place] [address] 87258 -2696 Jan, Dark brown-colored urine R82.99 and Acute suppurative otitis media of right ear without spontaneous rupture of tympanic membrane, recurrence not specified H66.001 [place] [address] [id number] [place] [address] 71989- 1378 Jan, Encounter for immunization Z23 [place] [address] [place] [id number] [place] [address] 33867- 1483 Dec, Crohn's disease of both small and large intestine with complication K50.819 and Eustachian tube dysfunction, right H69.81 [place] [address] [place] [id number] [place] [address] 00596- 9590 Dec, [place] [address] [place] [id number] [place] [address] 16716- 1675 Dec, Contusion of right knee, initial encounter S80.01XA [place] [address] [place] [id number] [place] [address] 87932- 4162 Dec, [place] [address] [place] [address] [id number] [place] [address] 28163- 4182 Dec, Acute pain of right knee M25.561 [place] [address] [place] [id number] [place] [address] 53585- 6751 Dec, Iron deficiency anemia due to chronic blood loss D50.0 [place] [address] [place] [id number] [place] [address] 64411- 2159 Dec, Hyperlipidemia E78.5 ; Type 2 diabetes mellitus without complication E11.9 ; Vitamin B12 deficiency E53.8 ; Essential hypertension I10 ; Obstructive sleep apnea on CPAP G47.33 and Periodic limb movement sleep disorder G47.61 [place] [address] [place] [id number] [place] [address] 66992- 8044 Nov, Type 2 diabetes mellitus without complication E11.9 ; Vitamin B12 deficiency E53.8 ; Hyperlipidemia E78.5 ; Essential hypertension I10 ; Obstructive sleep apnea on CPAP G47.33 ; Periodic limb movement sleep disorder G47.61 ; Anxiety F41.9 ; Acquired hypothyroidism E03.9 and Chronic tension-type headache, intractable G44.221 [place] [id number] [place] [address] 74626- 8804 Nov, Crohn's disease of both small and large intestine with complication K50.819 [place] [address] [place] [id number] [place] [address] 39629- 6641 Nov, Vitamin B12 deficiency E53.8 [place] [address] [place] [id number] [place] [address] 53266- 1370 Oct, [place] [address] [place] [id number] [place] [address] 62063- 8425 Oct, Vitamin B12 deficiency E53.8 [place] [address] [place] [id number] [place] [address] 13188- 7024 Sep, [place] [address] [place] [id number] [place] [address] 14678- 4220 Sep, Vitamin B12 deficiency E53.8 [place] [id number] [place] [address] 66266- 4172 Aug, [place] [address] [place] [address]- 2712 Aug, Vitamin B12 deficiency E53.8 [facility] [address] [id number] [place] [address] 30526- 2028 Aug, [facility] [address] [place] [address] 26667- 9709 Jul, Elevated ALT measurement R74.0 [facility] [address] [place] [id number] [place] [address] 44574- 4038 Jul, Hematuria R31.9 ; Acute right-sided thoracic back pain M54.6 ; Major depressive disorder, recurrent episode, moderate F33.1 and Elevated ALT measurement R74.0 [place] [address] [place] [id number] [place] [address] 85432- 7215 Jul, [facility] [address] [place] [id number] [place] [address] 17120- 7052 Jul, Elevated ALT measurement R74.0 [facility] [address] [place] [address] 59027- 6140 Jul, Iron deficiency anemia due to chronic blood loss D50.0 [place] [address] [place] [address] 38216- 8613 Jul, Type 2 diabetes mellitus without complication E11.9 ; Acquired hypothyroidism E03.9 ; Iron deficiency anemia due to chronic blood loss D50.0 ; Hyperlipidemia E78.5 and Essential hypertension I10 [place] [address] [address]- 9680 Jun, [facility] [address] [place] [address] 35406- 4306 20 Jun, 2016 Vitamin B12 deficiency E53.8 [facility] [address] [address]- 9034 16 Jun, 2016 Type 2 diabetes mellitus without complication E11.9 ; Acquired hypothyroidism E03.9 ; Iron deficiency anemia due to chronic blood loss D50.0 ; Hyperlipidemia E78.5 ; Essential hypertension I10 ; Chronic tension -type headache, intractable G44.221 ; Pulsatile tinnitus, bilateral H93.13 ; Obstructive sleep apnea on CPAP G47.33 and Major depressive disorder, recurrent episode, moderate F33.1 [place] [address] [place] [id number] [place] [address] 68753- 5749 16 May, 2016 Vitamin B12 deficiency E53.8 [place] [address] [place] [id number] [place] [address] 57872- 5159 08 May, 2016 [place] [address] 83902- 0774 Apr, Vitamin B12 deficiency E53.8 [place] [address] 27357- 2698 Apr, [place] [address] [place] [id number] [place] [address] 83465- 5660 Mar, Chronic tension-type headache, intractable G44.221 and Major depressive disorder, recurrent episode, moderate F33.1 [place] [address] [place] [id number] [place] [address] 95969- 4810 Mar, Vitamin B12 deficiency E53.8 [place] [address] 86839- 3027 February, [place] [address] [place] [id number] [place] [address] 68579- 6594 February, Vitamin B12 deficiency E53.8 [place] [address] [place] [id number] [place] [address] 55105- 0351 February, [place] [address] [place] [id number] [place] [address] 06226- 0909 Jan, Dysuria R30.0 [place] [address] [place] [id number] [place] [address] 17489- 9490 Jan, Essential hypertension I10 and Type 2 diabetes mellitus without complication E11.9 [place] [address] [place] [id number] [place] [address] 12907- 9710 15 Jan, 2016 Chronic diarrhea K52.9 [facility] [id number] [place] [address] 74548- 0177 13 Jan, 2016 [facility] [id number] [place] [address] 10314- 2378 Jan, Chronic diarrhea K52.9 [facility] [id number] [place] [address] 42008- 6200 Jan, [facility] [id number] [place] [address] 35321- 9403 Jan, Dysuria R30.0 [facility] [address] [id number] [place] [address] 40168- 6250 07 Jan, 2016 Vitamin B12 deficiency E53.8 [facility] [address] [place] [id number] [place] [address] 34800- 5015 07 Jan, 2016 Dysuria R30.0 and Iron deficiency anemia due to chronic blood loss D50.0 [facility] [id number] [place] [address] 06222- 1784 05 Jan, 2016 Dysuria R30.0 [facility] [address] [id number] [place] [address] 66820- 8578 04 Jan, 2016 [facility] [id number] [place] [address] 80059- 5249 15 Dec, 2015 [facility] [address] [id number] [place] [address] 32645- 1432 Dec, Iron deficiency anemia due to chronic blood loss D50.0 [facility] [address] [place] [address] 97321- 8407 10 Dec, 2015 Dysuria R30.0 ; Fatigue R53.83 ; Hyperlipidemia E78.5 and Diarrhea R19.7 [facility] [address] [place] [address] 57473- 1163 09 Dec, 2015 [facility] [address] [id number] [place] [address] 06379- 7360 Dec, [facility] [address], [place] [address]- 7983 10 Nov, 2015 Vitamin B12 deficiency E53.8 [facility] [address] [address]- 8161 Oct, Vitamin B12 deficiency E53.8 [facility] [address] [address]- 0108 Oct, [facility] [id number] [place] [address] 42952 -8834 09 Oct, 2015 Headache R51 [facility] [address] [id number] [place] [address] 57115- 6973 07 Oct, 2015 Essential hypertension I10 ; Type 2 diabetes mellitus without complication E11.9 ; Vitamin B12 deficiency E53.8 ; Acquired hypothyroidism E03.9 ; Iron deficiency anemia due to chronic blood loss D50.0 and Hyperlipidemia E78.5 [facility] [address] [place] [address] 21798- 7977 17 Sep, 2015 Essential hypertension I10 ; Vitamin B12 deficiency E53.8 ; Iron deficiency anemia due to chronic blood loss D50.0 ; Type 2 diabetes mellitus without complication E11.9 ; Hyperlipidemia E78.5 and Acquired hypothyroidism E03.9 [facility] [address] [address]- 7266 08 Sep, 2015 [facility] [address] [address]- 1815 Sep, [facility] [address] [address]- 3402 05 Jul, 2015 [facility] [address] [address]- 9654 29 Jun, 2015 [facility] [address] [address]- 6464 18 Jun, 2015 [facility] [address] [place] [address]- 5750 15 Jun, 2015 Hyperlipidemia 272.4 ; Iron deficiency anemia 280.9 ; Hypothyroidism 244.9 ; Diabetes mellitus without mention of complication, type II or unspecified type, not stated as uncontrolled 250.00 and Hypertension 401.9 [facility] [id number] [place] [address] 50452- 7616 Jun, [facility] [id number] [place] [address] 90482- 3338 Jun, [facility] [id number] [place] [address] 04451- 8972 May, Hyperlipidemia 272.4 [facility] [address] [id number] [place] [address] 66278- 9082 May, [facility] [id number] [place] [address] 58475- 9571 May, [facility] [address] [id number] [place] [address] 43263- 9173 Apr, Diabetes mellitus without mention of complication, type II or unspecified type, not stated as uncontrolled 250.00 ; Hypothyroidism 244.9 ; Hyperlipidemia 272.4 ; Pain in joint, lower leg 719.46 and RUQ pain 789.01 [place] [address] [id number] [place] [address] 86288- 8056 Mar, Sinusitis 473.9 [facility] [id number] [place] [address] 52386- 3133 Mar, [facility] [id number] [place] [address] 15500- 7914 Mar, [facility] [id number] [place] [address] 46452- 1680 Mar, Hematochezia 578.1 [facility] [id number] [place] [address] 69466- 4199 February, Sinusitis 473.9 [facility] [id number] [place] [address] 51075- 4142 February, [facility] [place] [facility] [address] [id number] [place] [address]- 2313 14 Jan, 2015 [facility] [place] [facility] [address] [id number] [place] [address]- 2828 Jan, [facility] [place] [facility] [address] [id number] [place] [address]- 1559 24 Dec, 2014 [facility] [place] [facility] [address] [id number] [place] [address]- 2527 24 Dec, 2014 [facility] [place] [facility] [address] [id number] [place] [address]- 6996 Dec, [facility] [place] [facility] [address] [id number] [place] [address]- 1201 Dec, [facility] [place] [facility] [address] [id number] [place] [address]- 8828 Dec, [facility] [place] [facility] [address] [id number] [place] [address]- 8504 Dec, [facility] [place] [facility] [address] [id number] [place] [address]- 9145 Dec, [facility] [place] [facility] [address] [id number] [place] [address]- 5462 Dec, [facility] [place] [facility] [address] [id number] [place] [address]- 8606 Dec, [facility] [place] [facility] [address] [id number] [place] [address]- 4306 Dec, [facility] [place] [facility] [address] [id number] [place] [address]- 3916 Dec, [facility] [place] [facility] [address] [id number] [place] [address]- 4473 Nov, [facility] [place] [facility] [address] [id number] [place] [address]- 2678 Nov, [facility] [place] [facility] [address] [id number] [place] [address]- 4045 Nov, [facility] [place] [facility] [address] [id number] [place] [address]- 5537 Nov, [facility] [place] [facility] [address] [id number] [place] [address]- 9396 Oct, [facility] [place] [facility] [address] [id number] [place] [address]- 9889 Oct, [facility] [place] [facility] [address] [id number] [place] [address]- 3826 Oct, [facility] [place] [facility] [address] [id number] [place] [address]- 2702 Oct, [facility] [place] [facility] [address] [id number] [place] [address]- 3984 Oct, [facility] [place] [facility] [address] [facility] [id number] [place] [address]- 4822 Oct, [facility] [place] [facility] [address] [id number] [place] [address]- 6782 Sep, [facility] [place] [facility] [address] [id number] [place] [address]- 0628 Sep, [facility] [place] [facility] [address] [facility] [id number] [place] [address]- 0793 Sep, [facility] [place] [facility] [address] [id number] [place] [address]- 3123 Sep, [facility] [place] [facility] [address] [id number] [place] [address]- 8082 Sep, [facility] [place] [facility] [address] [id number] [place] [address]- 4385 Sep, [facility] [place] [facility] [address] [id number] [place] [address]- 7931 Sep, [facility] [place] [facility] [address] [id number] [place] [address]- 7005 Aug, [facility] [place] [facility] [address] [id number] [place] [address]- 3308 Aug, [facility] [place] [facility] [address] [id number] [place] [address]- 8179 Aug, [facility] [place] [facility] [address] [id number] [place] [address]- 0156 Aug, [facility] [place] [facility] [address] [id number] [place] [address]- 0820 Aug, [facility] [place] [facility] [address] [id number] [place] [address]- 95[address] Aug, [facility] [place] [facility] [address] [id number] [place] [address] Aug, [facility] [place] [facility] [address] [id number] [place] [address] Aug, [facility] [place] [facility] [address] [id number] [place] [address] Aug, [facility] [place] [facility] [address] [id number] [place] [address] Aug, [facility] [place] [facility] [address] [id number] [place] [address] Aug, [facility] [place] [facility] [address] [id number] [place] [address] Aug, [facility] [place] [facility] [address] [id number] [place] [address] Aug, [facility] [place] [facility] [address] [id number] [place] [address] Aug, [facility] [place] [facility] [address] [id number] [place] [address] Jul, [facility] [place] [facility] [address] [id number] [place] [address] Jul, [facility] [place] [facility] [address] [id number] [place] [address] Jul, [facility] [place] [facility] [address] [id number] [place] [address] Jul, [facility] [place] [facility] [address] [id number] [place] [address] 24 Jun, 2013 [facility] [place] [facility] [address] [id number] [place] [address] 24 Jun, 2013 [facility] [place] [facility] [address] [id number] [place] [address] 23 Jun, 2013 [facility] [place] [facility] [address] [id number] [place] [address] 23 Jun, 2013 [facility] [place] [facility] [address] [id number] [place] [address] Jun, 2013 [facility] [place] [facility] [address] [id number] [place] [address] Jun, 2013 [facility] [place] [facility] [address] [id number] [place] [address] Jun, 2013 [facility] [place] [facility] [address] [id number] [place] [address] 11 Jun, 2013 [facility] [place] [facility] [address] [id number] [place] [address] Jun, 2013 [facility] [place] [facility] [address] [id number], [place] [address] 11 Jun, 2013 [facility] [place] [facility] [address] [id number], [place] [address] 10 Jun, 2013 [facility] [place] [facility] [address] [id number] [place] [address] 10 Jun, 2013 [facility] [place] [facility] [address] [id number], [place] [address] Jun, 2013 [facility] [place] [facility] [address] [id number] [place] [address] Jun, 2013 [facility] [place] [facility] [address] [id number] [place] [address] May, [facility] [place] [facility] [address] [id number] [place] [address] May, [facility] [place] [facility] [address] [id number] [place] [address] May, [facility] [place] [facility] [address] [id number] [place] [address] May, [facility] [place] [facility] [address] [id number] [place] [address] May, [facility] [place] [facility] [address] [id number] [place] [address] May, [facility] [place] [facility] [address] [id number] [place] [address] Apr, [facility] [place] [facility] [address] [id number] [place] [address] Apr, [facility] [place] [facility] [address] [id number] [place] [address] Apr, [facility] [place] [facility] [address] [id number] [place] [address] Apr, [facility] [place] [facility] [address] [id number] [place] [address] Apr, [facility] [place] [facility] [address] [id number] [place] [address] Apr, [facility] [place] [facility] [address] [id number] [place] [address] Apr, [facility] [place] [facility] [address] [id number] [place] [address] Apr, [facility] [place] [facility] [address] [id number] [place] [address] Apr, [facility] [place] [facility] [address] [id number] [place] [address] Apr, [facility] [place] [facility] [address] [id number] [place] [address] 139[address] Apr[facility] [address] [id number] [place] [address] Mar, [facility] [address] [id number] [place] [address] Mar, [facility] [address] [id number] [place] [address] Mar, [facility] [address] [id number] [place] [address] Mar, [facility] [address] [id number] [place] [address] February, [facility] [address] [id number] [place] [address] February, [facility] [address] [id number] [place] [address] Jan, [facility] [address] [id number] [place] [address] Jan, [facility] [address] [place] [id number] Jan [facility] [place] [address] [id number] [place] [address] Jan, [facility] [address] [id number] [place] [address] Jan, [facility] [address] [id number] [place] [address] Jan, [facility] [address] [id number] [place] [address] Jan, [facility] [address] [id number] [place] [address] Jan, [facility] [address] [id number] [place] [address] Jan, [facility] [place] [facility] [address] [id number] [place] [address] Jan, [facility] [place] [facility] [address] [id number] [place] [address] Jan, [facility] [place] [facility] [address] [id number] [place] [address] Jan, [facility] [place] [facility] [address] [id number] [place] [address] Jan, [facility] [place] [facility] [address] [id number] [place] [address] Jan, [facility] [place] [facility] [address] [id number] [place] [address] Jan, [facility] [place] [facility] [address] [id number] [place] [address] Jan, [facility] [place] [facility] [address] [id number] [place] [address] Jan, [facility] [place] [facility] [address] [id number] [place] [address] Dec, [facility] [place] [facility] [address] [id number] [place] [address] Dec, [facility] [place] [facility] [address] [id number] [place] [address] Dec, [facility] [place] [facility] [address] [id number] [place] [address] Dec, [facility] [place] [facility] [address] [id number] [place] [address] Dec, [facility] [place] [facility] [address] [id number] [place] [address] Dec, [facility] [place] [facility] [address] [id number] [place] [address]69 Dec, [facility] [place] [facility] [address] [id number] [place] [address] Nov, [facility] [place] [facility] [address] [id number] [place] [address] Nov, [facility] [place] [facility] [address] [id number] [place] [address] Nov, [facility] [place] [facility] [address] [id number] [place] [address] 2006 Nov, [facility] [place] [facility] [address] [id number] [place] [address] Nov, [facility] [place] [facility] [address] [id number] [place] [address] 7[address] Nov, [facility] [place] [facility] [address] [id number] [place] [address] 9[address] Nov, [facility] [place] [facility] [address] [facility] [id number] [place] [address] Oct, [facility] [place] [facility] [address] [facility] [id number] [place] [address] Oct, [facility] [place] [facility] [address] [facility] [id number] [place] [address] Sep, [facility] [place] [facility] [address] [facility] [id number] [place] [address] 18[address] Sep, [facility] [place] [facility] [address] [id number] [place] [address] 2546 Sep, [facility] [place] [facility] [address] [id number] [place] [address] 2548 Sep, [facility] [place] [facility] [address] [id number] [place] [address] 2541 Sep, [facility] [place] [facility] [address] [facility] [id number] [place] [address]- 2546 Sep, [facility] [place] [facility] [address] [id number] [place] [address] 79[address] Sep, [facility] [id number] [address] Sep, 2012 [facility] [id number] [place] [address] Sep, [facility] [address] [id number] [address] Sep, [facility] [id number] [place] [address] Aug, [facility] [id number] [place] [address] Aug, [facility] [id number] [place] [address] Aug, [facility] [id number] [place] [address] Aug, [facility] [id number], [place] [address] Aug, [facility] [id number] [place] [address] Jul, [facility] [id number] [place] [address] Jul, [facility] [id number], [place] [address] Jul, [facility] [address] [id number], [place] [address] Jul, IMMUNIZATIONS Vaccine Route Administration Date Status B12, VITAMIN (UP TO 1000 MCG) IM Intramuscular May 11, 2017 Administered HEP B (ADULT) IM Intramuscular May 11, 2017 Administered SOCIAL HISTORY Never Assessed REASON FOR VISIT Immunization(s) PLAN OF CARE Activity Details Follow Up 4 Weeks Reason: VITAL SIGNS MEDICATIONS Unknown Medications RESULTS No Results PROCEDURES Procedure Date Ordered Result Body Site HEP B (ADULT) May 11, 2017 SINGLE IMMUNIZATION ADMIN May 11, 2017 THER/PROPH/DIAG INJ, SC/IM May 11, 2017 B12, VITAMIN (UP TO 1000 MCG) May 11, 2017 INSTRUCTIONS MEDICATIONS ADMINISTERED No Known [...]
--- OUTSIDE RECORDS SUMMARY | 2018-03-22 06:38 | XMS REPORT ---
Author Author ESPINOZA BRENTON Organization [facility] [place] Address [address] [place] [address] Care Team Providers Care Consulting Practice Manager Name Role Phone ESPINOZAMARIIA KNUTSONHANY Unavailable PROBLEMS Type Condition ICD9-CM Code AHH65-KS Code Onset Dates Condition Status SNOMED Code Problem Major depressive disorder, recurrent episode, moderate F33.1 Active 194683235 Problem Right upper quadrant pain R10.11 Active 18079609 Problem Anxiety F41.9 Active 05399545 Problem BMI 50.0-59.9, adult Z68.43 Active 674419278 Problem Type 2 diabetes mellitus with other specified complication E11.69 Active 279551462121 Problem Crohn's disease of both small and large intestine with complication K50.819 Active 55716631 Problem Chronic tension-type headache, intractable G44.221 Active 901767216 Problem Hyperlipidemia, unspecified E78.5 Active 76123010 Problem Frequent falls R29.6 Active 876166895 Problem Periodic limb movement sleep disorder G47.61 Active 019047843 Problem Obstructive sleep apnea on CPAP G47.33 Active 86128753 Problem Fatty liver K76.0 Active 247812655 Problem Sensorineural hearing loss of right ear H90.41 Active 49818893 Problem Vitamin B12 deficiency E53.8 Active 722782593 Problem Essential hypertension I10 Active 25156207 Problem Iron deficiency anemia due to chronic blood loss D50.0 Active 76345821 Problem Hyperlipidemia E78.5 Active 53747398 Problem Chronic diarrhea K52.9 Active 654203607 Problem Acquired hypothyroidism E03.9 Active 597258134 ALLERGIES No Information SOCIAL HISTORY Never Assessed PLAN OF CARE Activity Details Follow Up 4 Weeks Reason: VITAL SIGNS MEDICATIONS No Known Medications RESULTS No Results PROCEDURES Procedure Date Ordered Result Body Site B12, VITAMIN (UP TO 1000 MCG) March 15, 2017 THER/PROPH/DIAG INJ, SC/IM March 15, 2017 IMMUNIZATIONS Vaccine Route Administration Date Status B12, VITAMIN (UP TO 1000 MCG) IM Intramuscular March 15, 2017 Administered MEDICAL (GENERAL) HISTORY Type Description Date [...]
--- OUTSIDE RECORDS SUMMARY | 2018-03-22 06:38 | XMS REPORT ---
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 Name Role Phone DENIZ FORMAN Unavailable PROBLEMS Type Condition ICD9-CM Code STG99-FX Code Onset Dates Condition Status SNOMED Code Problem Major depressive disorder, recurrent episode, moderate F33.1 Active 581656839 Problem Right upper quadrant pain R10.11 Active 88754396 Problem Anxiety F41.9 Active 14486600 Problem BMI 50.0-59.9, adult Z68.43 Active 425826954 Problem Fatty liver K76.0 Active 527849172 Problem Type 2 diabetes mellitus with other specified complication E11.69 Active 151526832982 Problem Crohn's disease of both small and large intestine with complication K50.819 Active 87973291 Problem Chronic tension-type headache, intractable G44.221 Active 978631905 Problem Hyperlipidemia, unspecified E78.5 Active 46611910 Problem Frequent falls R29.6 Active 751792143 Problem Obstructive sleep apnea on CPAP G47.33 Active 02473021 Problem MACHUCA (nonalcoholic steatohepatitis) K75.81 Active 855703765 Problem Sensorineural hearing loss of right ear H90.41 Active 22817523 Problem Periodic limb movement sleep disorder G47.61 Active 129416386 Problem Vitamin B12 deficiency E53.8 Active 395983996 Problem Essential hypertension I10 Active 89376724 Problem Iron deficiency anemia due to chronic blood loss D50.0 Active 33286581 Problem Hyperlipidemia E78.5 Active 24038619 Problem Chronic diarrhea K52.9 Active 768891347 Problem Acquired hypothyroidism E03.9 Active 709972506 ALLERGIES Substance Reaction Event Type Date Status Penicillin V Potassium Unknown Drug Allergy Mar, Active Niacin Unknown Drug Allergy Mar, Active Morphine Sulfate Unknown Drug Allergy Mar, Active Lipitor abdominal pain Drug Allergy Mar, Active Dilaudid Unknown Drug Allergy Mar, Active Bactrim Unknown Drug Allergy Mar, Active Amoxicillin Unknown Drug Allergy Mar, Active Adhesive Unknown Non Drug Allergy Mar, Active Sulfamethoxazole-Trimethoprim Unknown Drug Allergy Mar, Active Tetanus&diphtheria Toxoid Unknown Non Drug Allergy Mar, Active Influenza Virus Vacc,specific Got flu and was told to never get the vaccine again Non Drug Allergy Mar, Active ENCOUNTERS Encounter Location Date Diagnosis [facility] [id number] [place] [address] 32714- 9308 Jan, [facility] [address] 49729- 0399 Dec, [facility] [facility] [address] 00046- 7658 Sep, Encounter for immunization Z23 [facility] [address] 43254- 3495 Sep, [facility] [facility] [address] 56612- 5716 Sep, Vitamin B12 deficiency E53.8 [facility] [id number] [place] [address] 12072- 5405 Aug, [facility] [id number] [place] [address] 39638- 7990 Aug, BMI 60.0-69.9, adult Z68.44 and Acute non-recurrent maxillary sinusitis J01.00 [facility] [facility] [id number] [place] [address] 17070- 2076 14 Aug, 2017 [facility] [id number] [place] [address] 05748- 9209 Aug, Medicare annual wellness visit, initial Z00.00 ; Screening for breast cancer Z12.31 ; BMI 40.0-44.9, adult Z68.41 and Acquired hypothyroidism E03.9 [facility] [facility] [id number] [place] [address] 15027- 2129 Jul, Actinic keratosis L57.0 [facility] [facility] [id number] [place] [address] 79728- 3361 Jul, Actinic keratosis L57.0 [facility] [facility] [address] 47716- 6578 Jul, Type 2 diabetes mellitus with other specified complication E11.69 ; Actinic keratosis L57.0 and Hypothyroidism, unspecified E03.9 [place] [facility] [address] 89256- 7185 Jul, [place] [address] 33855- 2194 Jul, [place] [address] 40181- 9923 Jul, Vitamin B12 deficiency E53.8 [facility] [facility] [address] 35434- 6988 Jun, Acquired hypothyroidism E03.9 and Chronic tension-type headache, intractable G44.221 [place] [facility] [address] 07961- 1355 Jun, Back muscle spasm M62.830 and BMI 50.0-59.9, adult Z68.43 [place] [facility] [address] 65980- 4777 Jun, Vitamin B12 deficiency E53.8 [place] [address] 75945- 3988 Jun, Crohn's disease of both small and large intestine with complication K50.819 [facility] [facility] [address] 33066- 9269 Jun, Crohn's disease of both small and large intestine with complication K50.819 [place] [facility] [id number] [place] [address] 84166- 1317 May, Hyperlipidemia E78.5 ; Anxiety F41.9 and Essential hypertension I10 [facility] [facility] [address] [place] [address]- 4436 May, [facility] [facility] [id number] [place] [address] 63315- 1707 May, Encounter for immunization Z23 and Vitamin B12 deficiency E53.8 [facility] [facility] [id number] [place] [address] 91253- 7906 May, [place] [address] 88699- 1422 Apr, [facility] [facility] [id number] [place] [address] 86124- 1896 Apr, [place] [id number] [place] [address] 71989- 4150 Apr, Crohn's disease of both small and large intestine with complication K50.819 [facility] [facility] [id number] [place] [address] 71662- 5810 Apr, Vitamin B12 deficiency E53.8 [facility] [id number] [place] [address] 88180- 3747 Apr, Crohn's disease of both small and large intestine with complication K50.819 and Acute pain of right shoulder M25.511 [place] [id number] [place] [address] 07498- 6190 Mar, Type 2 diabetes mellitus without complication E11.9 ; Frequent falls R29.6 and Other chest pain R07.89 [place] [id number] [place] [address] 87172- 8727 Mar, [place] [id number] [place] [address] 22413- 0665 Mar, [place] [id number] [place] [address] 88224- 2838 Mar, Type 2 diabetes mellitus without complication E11.9 and Blurry vision, bilateral H53.8 [place] [id number] [place] [address] 62912- 3957 Mar, Vitamin B12 deficiency E53.8 [facility] [id number] [place] [address] 75391- 4000 Mar, Crohn's disease of both small and large intestine with complication K50.819 [place] [id number] [place] [address] 34544- 6137 February, Vitamin B12 deficiency E53.8 [place] [id number] [place] [address] 68549- 9148 Jan, Crohn's disease of both small and large intestine with complication K50.819 [place] [id number] [place] [address] 29376- 7293 Jan, Crohn's disease of both small and large intestine with complication K50.819 [facility] [id number] [place] [address] 73740 -3475 Jan, Dark brown-colored urine R82.99 and Acute suppurative otitis media of right ear without spontaneous rupture of tympanic membrane, recurrence not specified H66.001 [place] [id number] [place] [address] 81327- 2667 Jan, Encounter for immunization Z23 [place] [id number] [place] [address] 07481- 4680 Dec, Crohn's disease of both small and large intestine with complication K50.819 and Eustachian tube dysfunction, right H69.81 [place] [address] [place] [address] 41884- 4153 Dec, [place] [id number] [place] [address] 84090- 8523 Dec, Contusion of right knee, initial encounter S80.01XA [place] [id number] [place] [address] 25963- 3473 Dec, [place] [address] 71937- 9451 Dec, Acute pain of right knee M25.561 [place] [id number] [place] [address] 51251- 3502 Dec, Iron deficiency anemia due to chronic blood loss D50.0 [place] [id number] [place] [address] 28132- 1030 Dec, Hyperlipidemia E78.5 ; Type 2 diabetes mellitus without complication E11.9 ; Vitamin B12 deficiency E53.8 ; Essential hypertension I10 ; Obstructive sleep apnea on CPAP G47.33 and Periodic limb movement sleep disorder G47.61 [place] [id number] [place] [address] 42157- 3140 22 Nov, 2016 Type 2 diabetes mellitus without complication E11.9 ; Vitamin B12 deficiency E53.8 ; Hyperlipidemia E78.5 ; Essential hypertension I10 ; Obstructive sleep apnea on CPAP G47.33 ; Periodic limb movement sleep disorder G47.61 ; Anxiety F41.9 ; Acquired hypothyroidism E03.9 and Chronic tension-type headache, intractable G44.221 [place] [id number] [place] [address] 89814- 8038 Nov, Crohn's disease of both small and large intestine with complication K50.819 [place] [id number] [place] [address] 49427- 9313 10 Nov, 2016 Vitamin B12 deficiency E53.8 [place] [id number] [place] [address] 58683- 5770 Oct, [place] [id number] [place] [address] 80098- 5516 Oct, Vitamin B12 deficiency E53.8 [place] [id number] [place] [address] 05082- 5555 Sep, [place] [id number] [place] [address] 18721- 7199 Sep, Vitamin B12 deficiency E53.8 [place] [id number] [place] [address] 40304- 9124 Aug, [facility] [address] [address]- 0154 Aug, Vitamin B12 deficiency E53.8 [facility] [address] [address]- 0961 Aug, [facility] [address] [place] [address] 66552- 6861 Jul, Elevated ALT measurement R74.0 [facility] [address] [place] [address] 61098- 4996 Jul, Hematuria R31.9 ; Acute right-sided thoracic back pain M54.6 ; Major depressive disorder, recurrent episode, moderate F33.1 and Elevated ALT measurement R74.0 [facility] [id number] [place] [address] 44012- 7742 Jul, [facility] [id number] [place] [address] 90961- 9771 Jul, Elevated ALT measurement R74.0 [facility] [id number] [place] [address] 90732- 4179 Jul, Iron deficiency anemia due to chronic blood loss D50.0 [facility] [address] [address]- 6667 Jul, Type 2 diabetes mellitus without complication E11.9 ; Acquired hypothyroidism E03.9 ; Iron deficiency anemia due to chronic blood loss D50.0 ; Hyperlipidemia E78.5 and Essential hypertension I10 [facility] [address] [address]- 8665 Jun, [facility] [id number] [place] [address] 68837- 6348 20 Jun, 2016 Vitamin B12 deficiency E53.8 [facility] [address] [address]- 4025 16 Jun, 2016 Type 2 diabetes mellitus without complication E11.9 ; Acquired hypothyroidism E03.9 ; Iron deficiency anemia due to chronic blood loss D50.0 ; Hyperlipidemia E78.5 ; Essential hypertension I10 ; Chronic tension -type headache, intractable G44.221 ; Pulsatile tinnitus, bilateral H93.13 ; Obstructive sleep apnea on CPAP G47.33 and Major depressive disorder, recurrent episode, moderate F33.1 [place] [address] [place] [address] 94202- 6967 16 May, 2016 Vitamin B12 deficiency E53.8 [place] [id number] [place] [address] 64566- 2761 May, [place] [id number] [place] [address] 95831- 5414 Apr, Vitamin B12 deficiency E53.8 [place] [id number] [place] [address] 73567- 9064 Apr, [place] [id number] [place] [address] 92795- 2214 Mar, Chronic tension-type headache, intractable G44.221 and Major depressive disorder, recurrent episode, moderate F33.1 [place] [id number] [place] [address] 07910- 5255 Mar, Vitamin B12 deficiency E53.8 [place] [id number] [place] [address] 66284- 1651 February, [place] [id number] [place] [address] 05012- 2236 February, Vitamin B12 deficiency E53.8 [place] [id number] [place] [address] 80296- 9968 February, [place] [id number] [place] [address] 71624- 6294 Jan, Dysuria R30.0 [place] [id number] [place] [address] 76382- 6624 Jan, Type 2 diabetes mellitus without complication E11.9 and Essential hypertension I10 [place] [id number] [address]- 8796 15 Jan, 2016 Chronic diarrhea K52.9 [facility] [id number] [place] [address] 05685- 0667 13 Jan, 2016 [facility] [id number] [place] [address] 06334- 0355 12 Jan, 2016 Chronic diarrhea K52.9 [facility] [id number] [place] [address] 79939- 1313 Jan, [facility] [id number] [place] [address] 87317- 9531 12 Jan, 2016 Dysuria R30.0 [place] [id number] [place] [address] 56925- 7721 07 Jan, 2016 Vitamin B12 deficiency E53.8 [place] [id number] [place] [address] 53295- 3247 07 Jan, 2016 Dysuria R30.0 and Iron deficiency anemia due to chronic blood loss D50.0 [facility] [address] [place] [address] 14839- 1930 05 Jan, 2016 Dysuria R30.0 [facility] [id number] [place] [address] 44415- 9756 04 Jan, 2016 [place] [address] [place] [address] 87200- 8410 15 Dec, 2015 [facility] [id number] [place] [address] 32085- 8504 Dec, Iron deficiency anemia due to chronic blood loss D50.0 [facility] [id number] [place] [address] 47444- 5722 10 Dec, 2015 Dysuria R30.0 ; Fatigue R53.83 ; Hyperlipidemia E78.5 and Diarrhea R19.7 [facility] [address] [place] [address] 38373- 6335 09 Dec, 2015 [facility] [address] [address]- 8933 Dec, [facility] [address] [place] [address] 40817- 9160 Nov, Vitamin B12 deficiency E53.8 [facility] [address] [address]- 3302 Oct, Vitamin B12 deficiency E53.8 [facility] [id number] [place] [address] 55613- 4965 Oct, [facility] [address], [place] [address] -7232 09 Oct, 2015 Headache R51 [facility] [address] [place] [address] 05815- 4686 07 Oct, 2015 Essential hypertension I10 ; Type 2 diabetes mellitus without complication E11.9 ; Vitamin B12 deficiency E53.8 ; Acquired hypothyroidism E03.9 ; Iron deficiency anemia due to chronic blood loss D50.0 and Hyperlipidemia E78.5 [facility] [address], [place] [address]- 0805 17 Sep, 2015 Essential hypertension I10 ; Vitamin B12 deficiency E53.8 ; Iron deficiency anemia due to chronic blood loss D50.0 ; Type 2 diabetes mellitus without complication E11.9 ; Hyperlipidemia E78.5 and Acquired hypothyroidism E03.9 [facility] [address] [address]- 4623 08 Sep, 2015 [facility] [address] [address]- 0651 07 Sep, 2015 [facility] [address], [place] [address]- 8842 05 Jul, 2015 [facility] [address] [address]- 3034 29 Jun, 2015 [facility] [address], [place] [address]- 6916 18 Jun, 2015 [facility] [address] [place] [address] 19900- 7475 Jun, Hyperlipidemia 272.4 ; Iron deficiency anemia 280.9 ; Hypothyroidism 244.9 ; Diabetes mellitus without mention of complication, type II or unspecified type, not stated as uncontrolled 250.00 and Hypertension 401.9 [facility] [address], [place] [address]- 1585 Jun, [facility] [id number] [place] [address] 00109- 0943 Jun, [facility] [id number] [place] [address] 55480- 7859 May, Hyperlipidemia 272.4 [facility] [id number] [place] [address] 88952- 0021 May, [facility] [address] [place] [address] 71968- 0981 May, [facility] [id number] [place] [address] 51951- 9108 Apr, Diabetes mellitus without mention of complication, type II or unspecified type, not stated as uncontrolled 250.00 ; Hypothyroidism 244.9 ; Hyperlipidemia 272.4 ; Pain in joint, lower leg 719.46 and RUQ pain 789.01 [facility] [address], [place] [address]- 9822 Mar, Sinusitis 473.9 [facility] [address] [place] [address] 55256- 8228 Mar, [facility] [id number] [place] [address] 53248- 4007 Mar, [facility] [id number] [place] [address] 76146- 5779 Mar, Hematochezia 578.1 [facility] [id number] [place] [address] 36213- 1053 February, Sinusitis 473.9 [facility] [id number] [address]- 3287 February, [facility] [address] [id number] [place] [address]- 4469 14 Jan, 2015 [facility] [place] [facility] [address] [id number] [place] [address]- 1861 Jan, [facility] [place] [facility] [address] [id number] [place] [address]- 6620 24 Dec, 2014 [facility] [place] [facility] [address] [id number] [place] [address]- 6259 24 Dec, 2014 [facility] [place] [facility] [address] [id number] [place] [address]- 9725 24 Dec, 2014 [facility] [place] [facility] [address] [id number] [place] [address]- 3566 Dec, [facility] [place] [facility] [address] [id number] [place] [address]- 7336 Dec, [facility] [place] [facility] [address] [id number] [place] [address]- 2595 24 Dec, 2014 [facility] [place] [facility] [address] [id number] [place] [address]- 0161 Dec, [facility] [place] [facility] [address] [id number] [place] [address]- 8080 Dec, [facility] [place] [facility] [address] [id number] [place] [address]- 1363 Dec, [facility] [place] [facility] [address] [id number] [place] [address]- 8938 Dec, [facility] [place] [facility] [address] [id number] [place] [address]- 2322 Dec, [facility] [place] [facility] [address] [id number] [place] [address]- 7326 18 Nov, 2014 [facility] [place] [facility] [address] [id number] [place] [address]- 3940 Nov, [facility] [place] [facility] [address] [id number] [place] [address]- 2231 Nov, [facility] [place] [facility] [address] [id number] [place] [address]- 2491 Nov, [facility] [place] [facility] [address] [facility] [id number] [place] [address]- 9957 Oct, [facility] [place] [facility] [address] [id number] [place] [address]- 5909 Oct, [facility] [place] [facility] [address] [id number] [place] [address]- 9698 Oct, [facility] [place] [facility] [address] [id number] [place] [address]- 0775 Oct, [facility] [place] [facility] [address] [facility] [id number] [place] [address]- 6773 Oct, [facility] [place] [facility] [address] [facility] [id number] [place] [address]- 5002 Oct, [facility] [place] [facility] [address] [facility] [id number] [place] [address]- 5838 Sep, [facility] [place] [facility] [address] [facility] [id number] [place] [address]- 5434 Sep, [facility] [place] [facility] [address] [facility] [id number], [place] [address]- 9883 Sep, [facility] [place] [facility] [address] [id number] [address]- 2985 Sep, [facility] [place] [facility] [address] [id number] [place] [address]- 5376 Sep, [facility] [place] [facility] [address] [id number] [place] [address]- 9573 Sep, [facility] [place] [facility] [address] [facility] [id number] [place] [address]- 9442 Sep, [facility] [place] [facility] [address] [id number] [place] [address]- 4799 Aug, [facility] [place] [facility] [address] [id number] [place] [address]- 1233 Aug, [facility] [place] [facility] [address] [id number] [place] [address]- 2375 Aug, [facility] [place] [facility] [address] [id number] [place] [address]- 6563 Aug, [facility] [place] [facility] [address] [id number] [place] [address]- 8933 Aug, [facility] [place] [facility] [address] [id number] [place] [address] Aug, [facility] [place] [facility] [address] [id number] [place] [address] Aug, [facility] [place] [facility] [address] [id number] [place] [address] Aug, [facility] [place] [facility] [address] [id number] [place] [address] Aug, [facility] [place] [facility] [address] [id number] [place] [address] Aug, [facility] [place] [facility] [address] [facility] [id number] [place] [address] Aug, [facility] [place] [facility] [address] [id number] [place] [address] Aug, [facility] [place] [facility] [address] [id number], [place] [address] Aug, [facility] [place] [facility] [address] [id number] [place] [address] Aug, [facility] [place] [facility] [address] [id number] [place] [address] Jul, [facility] [place] [facility] [address] [id number], [place] [address] Jul, [facility] [place] [facility] [address] [id number] [place] [address] 06 Jul, 2014 [facility] [place] [facility] [address] [id number] [place] [address] Jul, [facility] [place] [facility] [address] [id number] [place] [address] 24 Jun, 2013 [facility] [place] [facility] [address] [id number] [place] [address] 24 Jun, 2013 [facility] [place] [facility] [address] [id number] [place] [address] 23 Jun, 2013 [facility] [place] [facility] [address] [id number] [place] [address] 23 Jun, 2013 [facility] [place] [facility] [address] [id number] [place] [address] 19 Jun, 2013 [facility] [place] [facility] [address] [id number] [place] [address] 19 Jun, 2013 [facility] [place] [facility] [address] [id number] [place] [address] 11 Jun, 2013 [facility] [place] [facility] [address] [id number] [place] [address] 11 Jun, 2013 [facility] [place] [facility] [address] [id number] [place] [address] 11 Jun, 2013 [facility] [place] [facility] [address] [id number] [place] [address] 11 Jun, 2013 [facility] [place] [facility] [address] [id number] [place] [address] 10 Jun, 2013 [facility] [place] [facility] [address] [id number] [place] [address]44 10 Jun, 2013 [facility] [place] [facility] [address] [id number] [place] [address] 09 Jun, 2013 [facility] [place] [facility] [address] [id number] [place] [address] Jun, [facility] [place] [facility] [address] [id number] [place] [address] May, [facility] [place] [facility] [address] [id number] [place] [address] May, [facility] [place] [facility] [address] [id number] [place] [address] May, [facility] [place] [facility] [address] [id number] [place] [address] May, [facility] [place] [facility] [address] [id number] [place] [address] May, [facility] [place] [facility] [address] [id number] [place] [address] May, [facility] [place] [facility] [address] [id number] [place] [address]68 Apr, [facility] [place] [facility] [address] [id number] [place] [address] Apr, [facility] [place] [facility] [address] [id number] [place] [address] Apr, [facility] [place] [facility] [address] [id number] [place] [address] Apr, [facility] [place] [facility] [address] [id number] [place] [address] Apr, [facility] [place] [facility] [address] [id number] [place] [address] Apr, [facility] [place] [facility] [address] [id number] [place] [address] Apr, [facility] [place] [facility] [address] [id number] [place] [address] 9098 Apr, [facility] [place] [facility] [address] [id number] [place] [address] Apr, [facility] [place] [facility] [address] [id number] [place] [address] Apr, [facility] [address] [id number] [place] [address] Apr, [facility] [address] [id number] [place] [address] Mar, [facility] [address] [id number] [place] [address] Mar, [facility] [address] [id number] [place] [address] 280[address] Mar, [facility] [address] [id number] [place] [address] Mar, [facility] [address] [id number] [place] [address] February, [facility] [address] [id number] [place] [address] February, [facility] [address] [id number] [place] [address] Jan, [facility] [address] [id number] [place] [address] Jan, [address] [id number] Jan [facility] [address] [id number] [place] [address] Jan, [facility] [address] [id number] [place] [address]696 Jan, [facility] [address] [id number] [place] [address] Jan, [facility] [address] [id number] [place] [address] 477[address] Jan, [facility] [address] [id number] [place] [address] 6[address] Jan, [facility] [place] [facility] [address] [id number] [place] [address] 5[address] Jan, [facility] [place] [facility] [address] [id number] [place] [address] 1196 10 Jan, 2014 [facility] [place] [facility] [address] [id number] [place] [address] 5866 10 Jan, 2014 [facility] [place] [facility] [address] [id number] [place] [address] Jan, [facility] [place] [facility] [address] [id number] [place] [address] 75[address] Jan, [facility] [place] [facility] [address] [id number] [place] [address] 135[address] Jan, [facility] [place] [facility] [address] [id number] [place] [address] 2391 Jan, [facility] [place] [facility] [address] [id number] [place] [address] 1838 Jan, [facility] [place] [facility] [address] [id number] [place] [address]- 9310 Jan, [facility] [place] [facility] [address] [id number] [place] [address] 6470 18 Dec, 2013 [facility] [place] [facility] [address] [id number] [place] [address] 3519 18 Dec, 2013 [facility] [place] [facility] [address] [id number] [place] [address]- [address]376 12 Dec, 2013 [facility] [place] [facility] [address] [id number] [place] [address] 0100 12 Dec, 2013 [facility] [place] [facility] [address] [id number] [place] [address]- 1657 05 Dec, 2013 [facility] [place] [facility] [address] [id number] [place] [address]- 1816 05 Dec, 2013 [facility] [place] [facility] [address] [id number] [place] [address] 0722 Dec, [facility] [place] [facility] [address] [id number] [place] [address] 0525 Nov, [facility] [place] [facility] [address] [id number] [place] [address] 3846 Nov, [facility] [place] [facility] [address] [facility] [id number] [place] [address] 9596 Nov, [facility] [place] [facility] [address] [id number] [place] [address] 5092 Nov, [facility] [place] [facility] [address] [id number] [place] [address]- 5276 Nov, [facility] [place] [facility] [address] [facility] [id number] [place] [address]- 2206 Nov, [facility] [place] [facility] [address] [facility] [id number] [place] [address]- 8346 Nov, [facility] [place] [facility] [address] [facility] [id number] [place] [address] 0450 Oct, [facility] [place] [facility] [address] [id number] [place] [address]- 9585 Oct, [facility] [place] [facility] [address] [facility] [id number] [place] [address]- 8500 Sep, [facility] [place] [facility] [address] [id number] [place] [address]- 2909 Sep, [facility] [place] [facility] [address] [facility] [id number] [place] [address]- 8435 Sep, [facility] [place] [facility] [address] [id number] [place] [address]- 7221 Sep, [facility] [place] [facility] [address] [facility] [id number] [place] [address]- 8648 Sep, [facility] [place] [facility] [address] [facility] [id number] [place] [address]- 9117 Sep, [facility] [place] [facility] [id number] [place] [address] Sep, [facility] [id number] [place] [address] Sep, [facility] [id number] [place] [address] Sep, [facility] [id number] [place] [address] 9366 Sep, [facility] [id number] [address] Aug, [facility] [id number] [place] [address] Aug, [facility] [address] [place] [address] 9364 Aug, [facility] [address], [place] [address] 3057 Aug, [facility] [address], [place] [address] Aug, [facility] [address] [place] [address] Jul, [facility] [address] [place] [address] 6769 Jul, [facility] [address] [place] [address] Jul, [facility] [id number] [address] Jul, IMMUNIZATIONS No Known Immunizations SOCIAL HISTORY Never Assessed REASON FOR VISIT Sore on face-right cheek, appeared a month ago, sometimes very sore and will peel, takes mercapturin from GI and was told to be check for skin changes- Tessa, concerned may be starting a catarct, Fasting BS this morning was 204 and had only taken the mercapturin PLAN OF CARE Activity Details Follow Up prn Reason: VITAL SIGNS Height 62 in 2017-03-17 Weight 316.6 lbs 2017-03-17 Temperature 98.4 degrees Fahrenheit 2017-03-17 Heart Rate 72 bpm 2017-03-17 Respiratory Rate 20 2017-03-17 BMI 57.90 kg/m2 2017-03-17 Blood pressure systolic 124 mmHg 2017-03-17 Blood pressure diastolic 78 mmHg 2017-03-17 MEDICATIONS Medication Instructions Dosage Frequency Start Date End Date Duration Status Zoloft 100 mg Orally Once a day 2 tablets 24h 90 days Active Lisinopril 40 mg Orally Once a day 1 tablet 24h 90 days Active Zetia 10 mg Orally Once a day 1 tablet 24h 90 days Active Meloxicam 15 MG Orally Once a day 1 tablet as needed 24h May, 90 days Active Mercaptopurine 50 MG Active Fiber - Active Ferrous Sulfate 325 (65 Fe) MG Orally Once a day 1 tablet 24h Dec, Active Cyanocobalamin 1000 MCG/ML 1 Active MetFORMIN HCl ER 750 MG Orally twice a day 1 tablet with food 12h Mar, 90 days Active Levothyroxine Sodium 100 MCG Orally Once a day 1 tablet on an empty stomach in the morning 24h 90 days Active RESULTS No Results PROCEDURES Procedure Date Ordered Result Body Site [facility] VISIT ESTABLISHED PATIENT March 17, 2017 INSTRUCTIONS MEDICATIONS ADMINISTERED No Known Medications [...]
--- OUTSIDE RECORDS SUMMARY | 2018-03-22 06:39 | XMS REPORT ---
Author Author ESPINOZA BRENTON Organization [facility] Address [address] [place] [address] Care Team Providers Care Guest Relations Associate Name Role Phone MARIIA DORANHANY Unavailable PROBLEMS Type Condition ICD9-CM Code [id number] Code Onset Dates Condition Status SNOMED Code Problem Essential hypertension I10 Active 41855070 Problem Acquired hypothyroidism E03.9 Active 026226298 Problem Hyperlipidemia E78.5 Active 28265182 Problem Frequent falls R29.6 Active 781923805 Problem Crohn's disease of both small and large intestine with complication K50.819 Active 19234484 Problem Anxiety F41.9 Active 07993225 Problem Major depressive disorder, recurrent episode, moderate F33.1 Active 849392441 Problem Chronic tension-type headache, intractable G44.221 Active 246410346 Problem Right upper quadrant pain R10.11 Active 34533408 Problem Fatty liver K76.0 Active 241336138 Problem Sensorineural hearing loss of right ear H90.41 Active 22808018 Problem Iron deficiency anemia due to chronic blood loss D50.0 Active 68265853 Problem Type 2 diabetes mellitus without complication E11.9 Active 35903976 Problem Periodic limb movement sleep disorder G47.61 Active 170180288 Problem Chronic diarrhea K52.9 Active 646531167 Problem Obstructive sleep apnea on CPAP G47.33 Active 41273702 Problem Vitamin B12 deficiency E53.8 Active 887867643 ALLERGIES Unknown Allergies SOCIAL HISTORY No smoking Hx information available PLAN OF CARE Activity Details Follow Up 1month Reason: VITAL SIGNS MEDICATIONS Unknown Medications RESULTS No Results PROCEDURES Procedure Date Ordered Related Diagnosis Body Site B12, VITAMIN (UP TO 1000 MCG) Oct 21, 2016 THER/PROPH/DIAG INJ, SC/IM Oct 21, 2016 IMMUNIZATIONS Vaccine Route Administration Date Status B12, VITAMIN (UP TO 1000 MCG) IM Intramuscular Oct 21, 2016 Administered
--- OUTSIDE RECORDS SUMMARY | 2018-03-22 06:39 | XMS REPORT ---
Author Author ROMEL HANYES [facility] Address [address] [place] [address] Care Team Providers Care Ferryboat Deckhand Name Role Phone ROMEL HAYNES Unavailable PROBLEMS Type Condition ICD9-CM Code [id number] Code Onset Dates Condition Status SNOMED Code Problem Essential hypertension I10 Active 01343161 Problem Acquired hypothyroidism E03.9 Active 342575893 Problem Hyperlipidemia E78.5 Active 56381619 Problem Frequent falls R29.6 Active 451063899 Problem Crohn's disease of both small and large intestine with complication K50.819 Active 72079904 Problem Anxiety F41.9 Active 52131392 Problem Major depressive disorder, recurrent episode, moderate F33.1 Active 812066213 Problem Chronic tension-type headache, intractable G44.221 Active 023938608 Problem Right upper quadrant pain R10.11 Active 81061177 Problem Fatty liver K76.0 Active 720386242 Problem Sensorineural hearing loss of right ear H90.41 Active 05278806 Problem Iron deficiency anemia due to chronic blood loss D50.0 Active 53226666 Problem Type 2 diabetes mellitus without complication E11.9 Active 53575285 Problem Periodic limb movement sleep disorder G47.61 Active 531090945 Problem Chronic diarrhea K52.9 Active 200835770 Problem Obstructive sleep apnea on CPAP G47.33 Active 45338128 Problem Vitamin B12 deficiency E53.8 Active 279058720 ALLERGIES Substance Reaction Event Type Date Status Penicillin V Potassium Unknown Drug Allergy Dec, Active Niacin Unknown Drug Allergy Dec, Active Morphine Sulfate Unknown Drug Allergy Dec, Active Lipitor abdominal pain Drug Allergy Dec, Active Dilaudid Unknown Drug Allergy Dec, Active Bactrim Unknown Drug Allergy Dec, Active Amoxicillin Unknown Drug Allergy Dec, Active Adhesive Unknown Non Drug Allergy Dec, Active Sulfamethoxazole-Trimethoprim Unknown Drug Allergy Dec, Active Tetanus&diphtheria Toxoid Unknown Non Drug Allergy Dec, Active Influenza Virus Vacc,specific Got flu and was told to never get the vaccine again Non Drug Allergy Dec, Active SOCIAL HISTORY Never Assessed PLAN OF CARE Activity Details Follow Up prn Reason: VITAL SIGNS Height 62 in 2016-12-20 Weight 320 lbs 2016-12-20 Temperature 98.2 degrees Fahrenheit 2016-12-20 Heart Rate 70 bpm 2016-12-20 Respiratory Rate 20 2016-12-20 BMI 58.52 kg/m2 2016-12-20 Blood pressure systolic 132 mmHg 2016-12-20 Blood pressure diastolic 70 mmHg 2016-12-20 MEDICATIONS Medication Instructions Dosage Frequency Start Date End Date Duration Status MetFORMIN HCl ER 750 MG Orally Once a day 1 tablet 24h Active Ferrous Sulfate 325 (65 Fe) MG Orally Once a day 1 tablet 24h Dec, Active Fiber - Active Lisinopril 40 mg Orally Once a day 1 tablet 24h 90 days Active Cyanocobalamin 1000 MCG/ML 1 Active Meloxicam 15 MG Orally Once a day 1 tablet as needed 24h May, 90 days Active Levothyroxine Sodium 100 MCG Orally Once a day 1 tablet on an empty stomach in the morning 24h 90 days Active Zoloft 100 mg Orally Once a day 2 tablets 24h 90 days Active Zetia 10 mg Orally Once a day 1 tablet 24h 90 days Active RESULTS Name Result Date Reference Range Xray : Knee, Right 3 views (IN HOUSE) 2016-12-20 PROCEDURES Procedure Date Ordered Result Body Site X-RAY EXAM OF KNEE, 3 December 20, 2016 [facility] VISIT ESTABLISHED PATIENT December 20, 2016 IMMUNIZATIONS No Known Immunizations MEDICAL (GENERAL) [...]
--- OUTSIDE RECORDS SUMMARY | 2018-03-22 06:39 | XMS REPORT ---
Author Author BRENTON DORAN Organization [facility] [place] Address [address] [place] [address] Care Team Providers Care Crusher Loader Equipment Operator Name Role Phone ESPINOZA, BRENTON Unavailable PROBLEMS Type Condition ICD9-CM Code VTF82-[id number] Code Onset Dates Condition Status SNOMED Code Problem Essential hypertension I10 Active 28714735 Problem Acquired hypothyroidism E03.9 Active 978753209 Problem Hyperlipidemia E78.5 Active 10481572 Problem Frequent falls R29.6 Active 303198249 Problem Crohn's disease of both small and large intestine with complication K50.819 Active 14179769 Problem Anxiety F41.9 Active 90551392 Problem Major depressive disorder, recurrent episode, moderate F33.1 Active 052702202 Problem Chronic tension-type headache, intractable G44.221 Active 814350771 Problem Right upper quadrant pain R10.11 Active 73666939 Problem Fatty liver K76.0 Active 834747493 Problem Sensorineural hearing loss of right ear H90.41 Active 75300880 Problem Iron deficiency anemia due to chronic blood loss D50.0 Active 12702877 Problem Type 2 diabetes mellitus without complication E11.9 Active 49224923 Problem Periodic limb movement sleep disorder G47.61 Active 517487648 Problem Chronic diarrhea K52.9 Active 536255220 Problem Obstructive sleep apnea on CPAP G47.33 Active 28822996 Problem Vitamin B12 deficiency E53.8 Active 097934773 ALLERGIES Unknown Allergies SOCIAL HISTORY No smoking Hx information available PLAN OF CARE VITAL SIGNS MEDICATIONS Medication Instructions Dosage Frequency Start Date End Date Duration Status Zoloft 100 MG Orally Once a day 2 tablets 24h 30 days Active RESULTS No Results PROCEDURES No Known procedures IMMUNIZATIONS No Known Immunizations
--- OUTSIDE RECORDS SUMMARY | 2018-03-22 06:40 | XMS REPORT ---
Author Author ESPINOZA BRENTON Organization [facility] Address [address] [place] [address] Care Team Providers Care Mill Control Operator Name Role Phone MARIIA DORANHANY Unavailable PROBLEMS Type Condition ICD9-CM Code UOK95-OS Code Onset Dates Condition Status SNOMED Code Problem Essential hypertension I10 Active 81144813 Problem Acquired hypothyroidism E03.9 Active 903338825 Problem Hyperlipidemia E78.5 Active 67838159 Problem Frequent falls R29.6 Active 773656920 Problem Crohn's disease of both small and large intestine with complication K50.819 Active 99620434 Problem Anxiety F41.9 Active 35397850 Problem Major depressive disorder, recurrent episode, moderate F33.1 Active 186955967 Problem Chronic tension-type headache, intractable G44.221 Active 349720517 Problem Right upper quadrant pain R10.11 Active 08015864 Problem Fatty liver K76.0 Active 664422855 Problem Sensorineural hearing loss of right ear H90.41 Active 34714080 Problem Iron deficiency anemia due to chronic blood loss D50.0 Active 20270255 Problem Type 2 diabetes mellitus without complication E11.9 Active 22099421 Problem Periodic limb movement sleep disorder G47.61 Active 060992140 Problem Chronic diarrhea K52.9 Active 813812853 Problem Obstructive sleep apnea on CPAP G47.33 Active 64911970 Problem Vitamin B12 deficiency E53.8 Active 670662593 ALLERGIES No Information SOCIAL HISTORY Never Assessed [...]
--- OUTSIDE RECORDS SUMMARY | 2018-03-22 06:40 | XMS REPORT ---
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 Name Role Phone BRENTON DORAN Unavailable PROBLEMS Type Condition ICD9-CM Code NWF41-SK Code Onset Dates Condition Status SNOMED Code Problem Anxiety F41.9 Active 62757522 Problem Chronic tension-type headache, intractable G44.221 Active 133090395 Problem Right upper quadrant pain R10.11 Active 68509403 Problem Vitamin D deficiency E55.9 Active 39988452 Problem Sensorineural hearing loss of right ear H90.41 Active 55896625 Problem BMI 50.0-59.9, adult Z68.43 Active 659064848 Problem Fatty liver K76.0 Active 690339366 Problem Frequent falls R29.6 Active 202595016 Problem Crohn's disease of both small and large intestine with complication K50.819 Active 24018297 Problem Type 2 diabetes mellitus with other specified complication E11.69 Active 440058544723 Problem Hyperlipidemia, unspecified E78.5 Active 28740055 Problem MACHUCA (nonalcoholic steatohepatitis) K75.81 Active 784837821 Problem Iron deficiency anemia due to chronic blood loss D50.0 Active 29120077 Problem Periodic limb movement sleep disorder G47.61 Active 202961632 Problem Obstructive sleep apnea on CPAP G47.33 Active 58341695 Problem Essential hypertension I10 Active 01697407 Problem Hyperlipidemia E78.5 Active 38414198 Problem Chronic diarrhea K52.9 Active 122040898 Problem Acquired hypothyroidism E03.9 Active 959390806 Problem Vitamin B12 deficiency E53.8 Active 545004347 Problem Major depressive disorder, recurrent episode, moderate F33.1 Active 109812159 ALLERGIES No Information ENCOUNTERS Encounter Location Date Diagnosis [facility] [id number] [address] Mar, [facility] [id number] [place] [address] 04264- 8780 February, [place] [id number] [place] [address] 97557- 1096 Jan, [facility] [id number] [place] [address] 50863- 4579 Jan, [facility] [id number] [place] [address] 20191 -5891 Jan, Diarrhea due to staphylococcus A04.8 and Diarrhea, unspecified type R19.7 [place] [id number] [place] [address] 42736- 2145 Jan, Acquired hypothyroidism E03.9 ; Type 2 diabetes mellitus with other specified complication E11.69 ; Hyperlipidemia E78.5 ; Essential hypertension I10 ; Major depressive disorder, recurrent episode, moderate F33.1 and Vitamin D deficiency E55.9 [place] [id number] [place] [address] 58903- 8292 Jan, Type 2 diabetes mellitus with other specified complication E11.69 ; Hyperlipidemia E78.5 ; Essential hypertension I10 ; Acquired hypothyroidism E03.9 ; Major depressive disorder, recurrent episode, moderate F33.1 ; Vitamin D deficiency E55.9 ; Sinus congestion R09.81 and BMI 50.0-59.9, adult Z68.43 [place] [id number] [place] [address] 45874- 2758 Dec, [place] [id number] [place] [address] 89405- 8407 Sep, Encounter for immunization Z23 [place] [id number] [place] [address] 05472- 1685 Sep, [place] [id number] [place] [address] 42376- 1780 Sep, Vitamin B12 deficiency E53.8 [place] [id number] [place] [address] 16929- 3725 Aug, [place] [id number] [place] [address] 14662- 7068 Aug, BMI 60.0-69.9, adult Z68.44 and Acute non-recurrent maxillary sinusitis J01.00 [place] [id number] [place] [address] 63100- 9113 14 Aug, 2017 [place] [id number] [place] [address] 02482- 4555 02 Aug, 2017 Medicare annual wellness visit, initial Z00.00 ; Screening for breast cancer Z12.31 ; BMI 40.0-44.9, adult Z68.41 and Acquired hypothyroidism E03.9 [place] [id number] [place] [address] 93833- 1627 Jul, Actinic keratosis L57.0 [place] [id number] [place] [address] 65170- 6045 Jul, Actinic keratosis L57.0 [place] [id number] [place] [address] 54976- 3292 Jul, Type 2 diabetes mellitus with other specified complication E11.69 ; Actinic keratosis L57.0 and Hypothyroidism, unspecified E03.9 [place] [id number] [place] [address] 18664- 3163 Jul, [place] [id number] [place] [address] 85548- 3310 Jul, [place] [id number] [place] [address] 75826- 9462 Jul, Vitamin B12 deficiency E53.8 [id number] [place] [address] 22637- 9994 Jun, Acquired hypothyroidism E03.9 and Chronic tension-type headache, intractable G44.221 [place] [id number] [place] [address] 92692- 7441 Jun, Back muscle spasm M62.830 and BMI 50.0-59.9, adult Z68.43 [place] [id number] [place] [address] 13313- 8942 Jun, Vitamin B12 deficiency E53.8 [facility] [address] 56013- 9527 Jun, Crohn's disease of both small and large intestine with complication K50.819 [place] [address] 27022- 5061 Jun, Crohn's disease of both small and large intestine with complication K50.819 [place] [address] 90827- 7006 May, Hyperlipidemia E78.5 ; Anxiety F41.9 and Essential hypertension I10 [place] [address] 32131- 5560 May, [place] [address] 35721- 1794 May, Encounter for immunization Z23 and Vitamin B12 deficiency E53.8 [place] [address] 95691- 4880 May, [place] [address] 78726- 1291 Apr, [place] [id number] [place] [address] 43132- 8919 Apr, [place] [id number] [place] [address] 06879- 4006 Apr, Crohn's disease of both small and large intestine with complication K50.819 [facility] [address] 15291- 9519 Apr, Vitamin B12 deficiency E53.8 [facility] [id number] [place] [address] 45072- 9932 Apr, Crohn's disease of both small and large intestine with complication K50.819 and Acute pain of right shoulder M25.511 [place] [id number] [place] [address] 01031- 0103 Mar, Type 2 diabetes mellitus without complication E11.9 ; Frequent falls R29.6 and Other chest pain R07.89 [place] [id number] [place] [address] 64125- 2180 14 Mar, 2017 [place] [address] 22427- 1609 Mar, [place] [address] 58729- 1169 Mar, Type 2 diabetes mellitus without complication E11.9 and Blurry vision, bilateral H53.8 [place] [id number] [place] [address] 85750- 9284 Mar, Vitamin B12 deficiency E53.8 [place] [address] 55356- 2393 Mar, Crohn's disease of both small and large intestine with complication K50.819 [place] [address] 25585- 4322 February, Vitamin B12 deficiency E53.8 [place] [id number] [place] [address] 44348- 9760 Jan, Crohn's disease of both small and large intestine with complication K50.819 [facility] [id number] [place] [address] 60897- 2139 Jan, Crohn's disease of both small and large intestine with complication K50.[address] [facility] [id number] [place] [address] 90969 -2964 Jan, Dark brown-colored urine R82.99 and Acute suppurative otitis media of right ear without spontaneous rupture of tympanic membrane, recurrence not specified H66.001 [place] [address] 07308- 2035 Jan, Encounter for immunization Z23 [place] [id number] [place] [address] 85676- 4767 Dec, Crohn's disease of both small and large intestine with complication K50.819 and Eustachian tube dysfunction, right H69.81 [place] [id number] [place] [address] 69670- 6065 Dec, [place] [address] 20445- 9471 Dec, Contusion of right knee, initial encounter S80.01XA [address] [address] 11008- 9989 Dec, [place] [id number] [place] [address] 76823- 8551 Dec, Acute pain of right knee M25.561 [place] [address] 04737- 1461 Dec, Iron deficiency anemia due to chronic blood loss D50.0 [place] [address] 78330- 0570 Dec, Hyperlipidemia E78.5 ; Type 2 diabetes mellitus without complication E11.9 ; Vitamin B12 deficiency E53.8 ; Essential hypertension I10 ; Obstructive sleep apnea on CPAP G47.33 and Periodic limb movement sleep disorder G47.61 [place] [id number] [place] [address] 16198- 6053 Nov, Type 2 diabetes mellitus without complication E11.9 ; Vitamin B12 deficiency E53.8 ; Hyperlipidemia E78.5 ; Essential hypertension I10 ; Obstructive sleep apnea on CPAP G47.33 ; Periodic limb movement sleep disorder G47.61 ; Anxiety F41.9 ; Acquired hypothyroidism E03.9 and Chronic tension-type headache, intractable G44.221 [place] [id number] [place] [address] 17804- 9564 Nov, Crohn's disease of both small and large intestine with complication K50.819 [facility] [id number] [place] [address] 27681- 3613 Nov, Vitamin B12 deficiency E53.8 [facility] [id number] [place] [address] 59266- 8962 Oct, [facility] [id number] [place] [address] 07906- 3622 Oct, Vitamin B12 deficiency E53.8 [facility] [id number] [place] [address] 64230- 9450 Sep, [facility] [id number] [place] [address] 46195- 5204 Sep, Vitamin B12 deficiency E53.8 [facility] [id number] [place] [address] 96141- 1787 Aug, [facility] [id number] [place] [address] 57666- 1085 Aug, Vitamin B12 deficiency E53.8 [facility] [id number] [place] [address] 76691- 4244 Aug, [facility] [id number] [place] [address] 51312- 2395 24 Jul, 2016 Elevated ALT measurement R74.0 [facility] [id number] [place] [address] 66840- 2489 Jul, Hematuria R31.9 ; Acute right-sided thoracic back pain M54.6 ; Major depressive disorder, recurrent episode, moderate F33.1 and Elevated ALT measurement R74.0 [facility] [id number] [place] [address] 31927- 0055 Jul, [facility] [id number] [place] [address] 71286- 8668 Jul, Elevated ALT measurement R74.0 [facility] [id number] [place] [address] 87252- 2982 Jul, Iron deficiency anemia due to chronic blood loss D50.0 [address] [place], [place] [address]- 4699 14 Jul, 2016 Type 2 diabetes mellitus without complication E11.9 ; Acquired hypothyroidism E03.9 ; Iron deficiency anemia due to chronic blood loss D50.0 ; Hyperlipidemia E78.5 and Essential hypertension I10 [address] [id number] [place] [address] 28351- 6326 Jun, [place] [id number] [place] [address] 77662- 4986 Jun, Vitamin B12 deficiency E53.8 [place] [id number] [place] [address] 14999- 9481 16 Jun, 2016 Type 2 diabetes mellitus without complication E11.9 ; Acquired hypothyroidism E03.9 ; Iron deficiency anemia due to chronic blood loss D50.0 ; Hyperlipidemia E78.5 ; Essential hypertension I10 ; Chronic tension -type headache, intractable G44.221 ; Pulsatile tinnitus, bilateral H93.13 ; Obstructive sleep apnea on CPAP G47.33 and Major depressive disorder, recurrent episode, moderate F33.1 [place] [id number] [place] [address] 96932- 6509 May, Vitamin B12 deficiency E53.8 [place] [id number] [address]- 9602 May, [place] [id number] [place] [address] 90189- 5519 Apr, Vitamin B12 deficiency E53.8 [address] [place] [address], [place] [address]- 8100 Apr, [place] [id number] [place] [address] 39772- 7796 Mar, Chronic tension-type headache, intractable G44.221 and Major depressive disorder, recurrent episode, moderate F33.1 [place] [place] [id number] [place] [address] 39861- 9635 Mar, Vitamin B12 deficiency E53.8 [facility] [address], [place] [address]- 6194 February, [facility] [id number] [place] [address] 53127- 1705 February, Vitamin B12 deficiency E53.8 [facility] [address] [place] [address] 67886- 2031 February, [facility] [id number] [place] [address] 56029- 0631 Jan, Dysuria R30.0 [facility] [id number] [place] [address] 38154- 8740 Jan, Type 2 diabetes mellitus without complication E11.9 and Essential hypertension I10 [facility] [id number] [place] [address] 08706- 7200 15 Jan, 2016 Chronic diarrhea K52.9 [facility] [id number] [place] [address] 58611- 0126 Jan, [facility] [id number] [place] [address] 60586- 2556 Jan, Chronic diarrhea K52.9 [facility] [id number] [place] [address] 66214- 1092 Jan, [facility] [id number] [place] [address] 81478- 4600 Jan, Dysuria R30.0 [facility] [address] [place] [address] 59636- 7471 07 Jan, 2016 Vitamin B12 deficiency E53.8 [facility] [id number] [place] [address] 40394- 5586 07 Jan, 2016 Dysuria R30.0 and Iron deficiency anemia due to chronic blood loss D50.0 [facility] [address] [place] [address] 50174- 9587 05 Jan, 2016 Dysuria R30.0 [facility] [address] [address]- 0638 04 Jan, 2016 [facility] [id number] [place] [address] 18197- 8885 15 Dec, 2015 [facility] [id number] [place] [address] 55308- 9087 11 Dec, 2015 Iron deficiency anemia due to chronic blood loss D50.0 [facility] [id number] [place] [address] 70024- 5854 10 Dec, 2015 Dysuria R30.0 ; Fatigue R53.83 ; Hyperlipidemia E78.5 and Diarrhea R19.7 [place] [id number] [place] [address] 84107- 3059 Dec, [facility] [id number] [place] [address] 45872- 9476 Dec, [facility] [id number] [place] [address] 55479- 1656 Nov, Vitamin B12 deficiency E53.8 [place] [id number] [place] [address] 53856- 6842 Oct, Vitamin B12 deficiency E53.8 [facility] [id number] [place] [address] 78609- 3096 Oct, [facility] WALK IN [facility] [id number] [place] [address] 32589 -1511 Oct, Headache R51 [facility] [id number] [place] [address] 19085- 5479 07 Oct, 2015 Essential hypertension I10 ; Type 2 diabetes mellitus without complication E11.9 ; Vitamin B12 deficiency E53.8 ; Acquired hypothyroidism E03.9 ; Iron deficiency anemia due to chronic blood loss D50.0 and Hyperlipidemia E78.5 [facility] [address], [place] [address]- 1042 17 Sep, 2015 Essential hypertension I10 ; Vitamin B12 deficiency E53.8 ; Iron deficiency anemia due to chronic blood loss D50.0 ; Type 2 diabetes mellitus without complication E11.9 ; Hyperlipidemia E78.5 and Acquired hypothyroidism E03.9 [facility] [id number] [place] [address] 60604- 6042 Sep, [facility] [id number] [place] [address] 46383- 9461 Sep, [facility] [id number] [place] [address] 22945- 0988 Jul, [facility] [id number] [place] [address] 38846- 4203 Jun, [facility] [id number] [place] [address] 07609- 9376 Jun, [facility] [id number] [place] [address] 72739- 8878 Jun, Hyperlipidemia 272.4 ; Iron deficiency anemia 280.9 ; Hypothyroidism 244.9 ; Diabetes mellitus without mention of complication, type II or unspecified type, not stated as uncontrolled 250.00 and Hypertension 401.9 [facility] [id number] [place] [address] 59611- 0785 Jun, [facility] [address] [place] [address] 62653- 1619 Jun, [facility] [id number] [place] [address] 62811- 2510 May, Hyperlipidemia 272.4 [facility] [address], [place] [address]- 5649 May, [facility] [id number] [place] [address] 08441- 3539 May, [facility] [id number] [place] [address] 11946- 2411 Apr, Diabetes mellitus without mention of complication, type II or unspecified type, not stated as uncontrolled 250.00 ; Hypothyroidism 244.9 ; Hyperlipidemia 272.4 ; Pain in joint, lower leg 719.46 and RUQ pain 789.01 [facility] [address], [place] [address]- 1210 15 Mar, 2015 Sinusitis 473.9 [facility] [id number] [address]- 4930 04 Mar, 2015 [facility] [id number] [place] [address] 81195- 1917 Mar, [facility] [id number] [place] [address] 39661- 5258 Mar, Hematochezia 578.1 [facility] [id number] [place] [address] 51638- 4273 February, Sinusitis 473.9 [facility] [id number] [place] [address] 78555- 2402 February, [facility] [id number] [place] [address] 16083- 3254 Jan, [facility] [id number] [place] [address] 75885- 0442 Jan, [facility] [id number] [place] [address] 93280- 9146 Dec, [facility] [address], [place] [address]- 2774 Dec, [facility] [address], [place] [address]- 2208 Dec, [facility] [address], [place] [address]- 8098 Dec, [facility] [id number] [place] [address] 68064- 8622 Dec, [facility] [address], [place] [address]- 6364 Dec, [facility] [id number] [place] [address]- 4904 Dec, [facility] [place] [facility] [address] [id number] [place] [address]- 9736 Dec, [facility] [place] [facility] [address] [id number] [place] [address]- 4039 Dec, [facility] [place] [facility] [address] [id number] [place] [address]- 4212 Dec, [facility] [place] [facility] [address] [id number] [place] [address]- 4236 Dec, [facility] [place] [facility] [address] [id number] [place] [address]- 5937 Nov, [facility] [place] [facility] [address] [id number] [place] [address]- 4828 Nov, [facility] [place] [facility] [address] [id number] [place] [address]- 4916 Nov, [facility] [place] [facility] [address] [id number] [place] [address]- 0451 Nov, [facility] [place] [facility] [address] [id number] [place] [address]- 2839 Oct, [facility] [place] [facility] [address] [facility] [id number] [place] [address]- 9339 Oct, [facility] [place] [facility] [address] [id number] [place] [address]- 6569 Oct, [facility] [place] [facility] [address] [id number] [place] [address]- 3976 Oct, [facility] [place] [facility] [address] [id number] [place] [address]- 5004 Oct, [facility] [place] [facility] [address] [facility] [id number] [place] [address]- 7675 Oct, [facility] [place] [facility] [address] [facility] [id number] [place] [address]- 0344 Sep, [facility] [place] [facility] [address] [id number] [place] [address]- 4216 Sep, [facility] [place] [facility] [address] [id number] [place] [address]- 4652 Sep, [facility] [place] [facility] [address] [id number] [place] 9162 Sep, [facility] [place] [facility] [address] [id number] [place] [address] Sep, [facility] [place] [facility] [address] [id number] [place] [address] Sep, [facility] [place] [facility] [address] [id number] [place] [address] Sep, [facility] [place] [facility] [address] [id number] [place] [address] Aug, [facility] [place] [facility] [address] [id number] [place] [address] Aug, [facility] [place] [facility] [address] [id number] [place] [address] Aug, [facility] [place] [facility] [address] [id number] [place] [address] Aug, [facility] [place] [facility] [address] [id number] [place] [address] Aug, [facility] [place] [facility] [address] [id number] [address] Aug, [facility] [place] [facility] [address] [id number] [place] [address] Aug, [facility] [place] [facility] [address] [id number] [place] [address] Aug, [facility] [place] [facility] [address] [id number], [place] [address] 17 Aug, 2014 [facility] [place] [facility] [address] [id number], [place] [address] Aug, [facility] [place] [facility] [address] [id number] [place] [address] Aug, [facility] [place] [facility] [address] [id number] [place] [address] Aug, [facility] [place] [facility] [address] [facility] [id number] [place] [address] Aug, [facility] [place] [facility] [address] [id number] [place] [address] Aug, [facility] [place] [facility] [address] [id number] [place] [address] Jul, [facility] [place] [facility] [address] [id number] [place] [address] Jul, [facility] [place] [facility] [address] [facility] [id number] [place] [address] Jul, [facility] [place] [facility] [address] [id number] [place] [address] Jul, [facility] [place] [facility] [address] [id number] [place] [address] 24 Jun, 2014 [facility] [place] [facility] [address] [id number] [place] [address] 24 Jun, 2014 [facility] [place] [facility] [address] [id number] [place] [address]- 1365 23 Jun, 2013 [facility] [place] [facility] [address] [id number], [place] [address] 23 Jun, 2013 [facility] [place] [facility] [address] [id number] [place] [address] 19 Jun, 2013 [facility] [place] [facility] [address] [id number] [place] [address]8 19 Jun, 2013 [facility] [place] [facility] [address] [facility] [id number] [place] [address] 11 Jun, 2013 [facility] [place] [facility] [address] [id number] [place] [address] 11 Jun, 2013 [facility] [place] [facility] [address] [id number] [place] [address] 11 Jun, 2014 [facility] [place] [facility] [address] [id number] [place] [address] 11 Jun, 2013 [facility] [place] [facility] [address] [id number] [place] [address] 2446 10 Jun, 2013 [facility] [place] [facility] [address] [id number] [place] [address] Jun, 2013 [facility] [place] [facility] [address] [id number] [place] [address] Jun, [facility] [place] [facility] [address] [id number] [place] [address] 289[address] Jun, [facility] [place] [facility] [address] [id number] [place] [address] May, [facility] [place] [facility] [address] [id number] [place] [address] May, [facility] [place] [facility] [address] [id number] [place] [address]- 390[address] May, [facility] [place] [facility] [address] [id number] [place] [address]- 287[address] May, [facility] [place] [facility] [address] [id number] [place] [address]- 24[address] May, [facility] [place] [facility] [address] [id number] [place] [address]- 48[address] May, [facility] [place] [facility] [address] [id number] [place] [address] 4416 Apr, [facility] [place] [facility] [address] [id number] [place] [address]- [address]228 Apr, [facility] [place] [facility] [address] [id number] [place] [address]- [address]160 Apr, [facility] [place] [facility] [address] [id number] [place] [address]- 93[address] Apr, [facility] [place] [facility] [address] [id number] [place] [address]- 9447 Apr, [facility] [place] [facility] [address] [id number] [place] [address]- [address] Apr, [facility] [place] [facility] [address] [id number] [place] [address]- 0841 Apr, [facility] [place] [facility] [address] [id number] [place] [address]- 65[address] Apr, [facility] [place] [facility] [address] [id number] [place] [address] 8306 Apr, [facility] [place] [facility] [address] [id number] [place] [address]- 9731 Apr, [facility] [place] [facility] [address] [id number] [place] [address]- 5517 Apr, [facility] [place] [facility] [address] [id number] [place] [address] 1655 Mar, [facility] [place] [facility] [address] [id number] [place] [address] 0816 Mar, [facility] [place] [facility] [address] [id number] [place] [address]- 2971 Mar, [facility] [place] [facility] [address] [id number] [place] [address] 6067 Mar, [facility] [place] [facility] [address] [id number] [place] [address]- 9415 February, [facility] [place] [facility] [address] [id number] [place] [address]- 29[address] February, [facility] [place] [facility] [address] [id number] [place] [address] 9[address] Jan, [facility] [place] [facility] [address] [id number] [place] [address] Jan, [facility] [place] [facility] [place] [id number] Jan [facility] [address] [id number] [place] [address] 2626 Jan, [facility] [address] [id number] [place] [address] 6062 Jan, [facility] [place] [facility] [address] [id number] [place] [address]- 6660 Jan, [facility] [address] [id number] [place] [address]- 4[address] Jan, [facility] [address] [id number] [place] [address]- 78[address] Jan, [facility] [address] [id number] [place] [address]- 1173 Jan, [facility] [place] [facility] [address] [id number] [place] [address]- 2209 Jan, [facility] [place] [facility] [address] [id number] [place] [address]- 0532 Jan, [facility] [place] [facility] [address] [id number] [place] [address]- 2450 Jan, [facility] [place] [facility] [address] [id number] [place] [address]- 1682 Jan, [facility] [place] [facility] [address] [id number] [place] [address]- 6068 Jan, [facility] [place] [facility] [address] [id number] [place] [address]- 2699 Jan, [facility] [place] [facility] [address] [id number] [place] [address] 6779 Jan, [facility] [place] [facility] [address] [id number] [place] [address] 1978 Jan, [facility] [place] [facility] [address] [id number] [place] [address] 5598 Dec, [facility] [place] [facility] [address] [id number] [place] [address]- 5073 Dec, [facility] [place] [facility] [address] [id number] [place] [address]- 5756 Dec, [facility] [place] [facility] [address] [id number] [place] [address]- 6480 Dec, [facility] [place] [facility] [address] [id number] [place] [address]- 2546 Dec, [facility] [place] [facility] [address] [id number] [place] [address]- 6742 Dec, [facility] [place] [facility] [address] [facility] [id number] [place] [address]- 1771 Dec, [facility] [place] [facility] [address] [facility] [id number] [place] [address] 6175 Nov, [facility] [place] [facility] [address] [id number] [place] [address]- 7120 Nov, [facility] [place] [facility] [address] [facility] [id number] [place] [address]- 6158 Nov, [facility] [place] [facility] [address] [facility] [id number] [place] [address]- 0082 Nov, [facility] [place] [facility] [address] [facility] [id number] [place] [address] 2003 Nov, [facility] [place] [facility] [address] [facility] [id number] [place] [address]- 1745 Nov, [facility] [place] [facility] [address] [id number] [place] [address]- 9825 Nov, [facility] [place] [facility] [address] [facility] [id number] [place] [address]- 2035 Oct, [facility] [place] [facility] [address] [facility] [id number] [place] [address]- 2357 Oct, [facility] [address] [id number] [place] [address]- 7346 Sep, [facility] [place] [facility] [address] [id number] [place] [address]- 4876 Sep, [facility] [place] [facility] [address] [facility] [id number] [place] [address]- 1398 Sep, [facility] [place] [facility] [address] [id number] [place] [address]- 4557 Sep, [facility] [place] [facility] [address] [id number] [place] [address]- 9154 Sep, [facility] [place] [facility] [address] [id number] [place] [address]- 2280 Sep, [facility] [place] [facility] [address] [id number] [place] [address]- 9443 Sep, [facility] [place] [facility] [address] [id number] [place] [address]- 9315 Sep, [facility] [place] [facility] [address] [id number] [place] [address]- 4936 Sep, [facility] [place] [facility] [address] [id number] [place] [address]- 7871 Sep, [facility] [place] [facility] [address] [id number], [place] [address] Aug, [facility] [place] [facility] [address] [id number], [place] [address]807 Aug, [facility] [place] [facility] [address] [id number] [place] [address]- 3023 Aug, [facility] [place] [facility] [address] [id number], [place] [address]- 5[address] Aug, [facility] [place] [facility] [address] [id number], [place] [address] 4[address] Aug, [facility] [place] [facility] [address] [facility] [id number] [place] [address]- [address] Jul, [facility] [address] [facility] [id number] [place] [address]- 5731 Jul, [facility] [address] [facility] [id number] [place] [address]- 4174 Jul, [facility] [address] [facility] [id number] [place] [address] Jul, IMMUNIZATIONS Vaccine Route Administration Date Status B12, VITAMIN (UP TO 1000 MCG) IM Intramuscular Sep 13, 2017 Administered SOCIAL HISTORY Never Assessed REASON FOR VISIT B12 injection----DBennettRN PLAN OF CARE VITAL SIGNS MEDICATIONS Unknown Medications RESULTS No Results PROCEDURES Procedure Date Ordered Result Body Site B12, VITAMIN (UP TO 1000 MCG) Sep 13, 2017 THER/PROPH/DIAG INJ, SC/IM Sep 13, 2017 INSTRUCTIONS MEDICATIONS ADMINISTERED No Known Medications [...]
--- OUTSIDE RECORDS SUMMARY | 2018-03-22 06:41 | XMS REPORT ---
Author Author ESPINOZA BRENTON Organization [facility] Address [address] [place] [address] Care Team Providers Care Color Control Operator Name Role Phone MARIIA DORANHANY Unavailable PROBLEMS Type Condition ICD9-CM Code [id number] Code Onset Dates Condition Status SNOMED Code Problem Major depressive disorder, recurrent episode, moderate F33.1 Active 890619078 Problem Right upper quadrant pain R10.11 Active 38313949 Problem Anxiety F41.9 Active 51172260 Problem BMI 50.0-59.9, adult Z68.43 Active 658888921 Problem Fatty liver K76.0 Active 298265412 Problem Type 2 diabetes mellitus with other specified complication E11.69 Active 944319532508 Problem Crohn's disease of both small and large intestine with complication K50.819 Active 70544962 Problem Chronic tension-type headache, intractable G44.221 Active 745604068 Problem Hyperlipidemia, unspecified E78.5 Active 16538076 Problem Frequent falls R29.6 Active 350504548 Problem Obstructive sleep apnea on CPAP G47.33 Active 02574784 Problem MACHUCA (nonalcoholic steatohepatitis) K75.81 Active 348370274 Problem Sensorineural hearing loss of right ear H90.41 Active 19184452 Problem Periodic limb movement sleep disorder G47.61 Active 772104823 Problem Vitamin B12 deficiency E53.8 Active 520109238 Problem Essential hypertension I10 Active 51334347 Problem Iron deficiency anemia due to chronic blood loss D50.0 Active 75056708 Problem Hyperlipidemia E78.5 Active 63957096 Problem Chronic diarrhea K52.9 Active 824844113 Problem Acquired hypothyroidism E03.9 Active 536362402 ALLERGIES Substance Reaction Event Type Date Status [...] Mar, Active ENCOUNTERS Encounter Location Date Diagnosis [place] [address] [address] Jan, [place] [address] [address] Dec, [place] [address] [address]- [address] Sep, Encounter for immunization Z23 [place] [address] [address]- [address] Sep, [place] [address] [address]- [address] Sep, Vitamin B12 deficiency E53.8 [place] [address] 89017- 0065 Aug, [place] [address] [address]- [address]344 Aug, BMI 60.0-69.9, adult Z68.44 and Acute non-recurrent maxillary sinusitis J01.00 [place] [address] [place] [id number] [place] [address] 68446- 9649 14 Aug, 2017 [place] [address] [place] [id number] [place] [address] 13630- 1075 Aug, Medicare annual wellness visit, initial Z00.00 ; Screening for breast cancer Z12.31 ; BMI 40.0-44.9, adult Z68.41 and Acquired hypothyroidism E03.9 [place] [address] [place] [id number] [place] [address] 17581- 2210 Jul, Actinic keratosis L57.0 [place] [address] [place] [id number] [place] [address] 84067- 0725 Jul, Actinic keratosis L57.0 [place] [address] 88855- 6759 Jul, Type 2 diabetes mellitus with other specified complication E11.69 ; Actinic keratosis L57.0 and Hypothyroidism, unspecified E03.9 [place] [address] 55599- 8490 Jul, [place] [address] 94321- 8417 Jul, [place] [address] 04266- 1520 Jul, Vitamin B12 deficiency E53.8 [place] [address] [place] [id number] [place] [address] 83827- 9395 Jun, Acquired hypothyroidism E03.9 and Chronic tension-type headache, intractable G44.221 [place] [address] [place] [id number] [place] [address] 67807- 8670 Jun, Back muscle spasm M62.830 and BMI 50.0-59.9, adult Z68.43 [place] [address] [place] [id number] [place] [address] 79878- 9222 Jun, Vitamin B12 deficiency E53.8 [place] [address] [place] [id number] [place] [address] 60584- 5921 Jun, Crohn's disease of both small and large intestine with complication K50.819 [place] [address] [place] [id number] [place] [address] 40404- 4801 Jun, Crohn's disease of both small and large intestine with complication K50.819 [place] [address] [place] [id number] [place] [address] 10017- 2106 May, Hyperlipidemia E78.5 ; Anxiety F41.9 and Essential hypertension I10 [place] [address] [place] [address] [address] May, [facility] [address] [place] [id number] [place] [address] 43476- 2676 May, Encounter for immunization Z23 and Vitamin B12 deficiency E53.8 [facility] [address] [place] [id number] [place] [address] 80044- 5056 May, [facility] [address] [place] [id number] [place] [address] 12548- 5413 Apr, [place] [address] [place] [id number] [place] [address] 90350- 3444 Apr, [place] [address] [place] [id number] [place] [address] 65517- 1057 Apr, Crohn's disease of both small and large intestine with complication K50.819 [place] [address] [place] [id number] [place] [address] 12907- 3901 Apr, Vitamin B12 deficiency E53.8 [place] [address] [place] [address] 03772- 2347 Apr, Crohn's disease of both small and large intestine with complication K50.819 and Acute pain of right shoulder M25.511 [place] [address] [place] [address] 11932- 1885 Mar, Type 2 diabetes mellitus without complication E11.9 ; Frequent falls R29.6 and Other chest pain R07.89 [place] [address] [address]- 1267 Mar, [place] [address] [place] [id number] [place] [address] 25728- 5872 Mar, [place] [address] [place] [address] 48169- 6156 Mar, Type 2 diabetes mellitus without complication E11.9 and Blurry vision, bilateral H53.8 [place] [address] [place] [id number] [place] [address] 96746- 6629 Mar, Vitamin B12 deficiency E53.8 [facility] [address] [place] [id number] [place] [address] 83668- 4132 Mar, Crohn's disease of both small and large intestine with complication K50.819 [place] [address] [place] [id number] [place] [address] 18382- 8783 February, Vitamin B12 deficiency E53.8 [place] [address] [place] [id number] [place] [address] 92781- 4805 Jan, Crohn's disease of both small and large intestine with complication K50.819 [place] [address] [place] [id number] [place] [address] 28326- 4469 Jan, Crohn's disease of both small and large intestine with complication K50.819 [facility] [address] [place] [id number] [place] [address] 24742 -3947 Jan, Dark brown-colored urine R82.99 and Acute suppurative otitis media of right ear without spontaneous rupture of tympanic membrane, recurrence not specified H66.001 [place] [address] [place] [id number] [place] [address] 32060- 7077 Jan, Encounter for immunization Z23 [place] [address] [place] [id number] [place] [address] 32830- 2684 Dec, Crohn's disease of both small and large intestine with complication K50.819 and Eustachian tube dysfunction, right H69.81 [facility] [address] [place] [id number] [place] [address] 23785- 9754 Dec, [place] [address] [place] [id number] [place] [address] 25571- 7273 Dec, Contusion of right knee, initial encounter S80.01XA [place] [address] [place] [id number] [place] [address] 14402- 8588 Dec, [place] [address] 05214- 8115 Dec, Acute pain of right knee M25.561 [place] [address] [place] [address] 16009- 0755 Dec, Iron deficiency anemia due to chronic blood loss D50.0 [place] [address] [place] [id number] [place] [address] 15617- 1356 Dec, Hyperlipidemia E78.5 ; Type 2 diabetes mellitus without complication E11.9 ; Vitamin B12 deficiency E53.8 ; Essential hypertension I10 ; Obstructive sleep apnea on CPAP G47.33 and Periodic limb movement sleep disorder G47.61 [place] [address] [place] [id number] [place] [address] 94970- 9159 Nov, Type 2 diabetes mellitus without complication E11.9 ; Vitamin B12 deficiency E53.8 ; Hyperlipidemia E78.5 ; Essential hypertension I10 ; Obstructive sleep apnea on CPAP G47.33 ; Periodic limb movement sleep disorder G47.61 ; Anxiety F41.9 ; Acquired hypothyroidism E03.9 and Chronic tension-type headache, intractable G44.221 [place] [address] [place] [id number] [place] [address] 82331- 3391 Nov, Crohn's disease of both small and large intestine with complication K50.819 [place] [address] [place] [id number] [place] [address] 54285- 5369 10 Nov, 2016 Vitamin B12 deficiency E53.8 [place] [address] [place] [address] 83312- 0750 Oct, [place] [address] [place] [id number] [place] [address] 65088- 2392 Oct, Vitamin B12 deficiency E53.8 [place] [address] [place] [id number] [place] [address] 00890- 8334 Sep, [place] [address] [place] [address] 50531- 8193 Sep, Vitamin B12 deficiency E53.8 [place] [address] [place] [id number] [place] [address] 82814- 0503 Aug, [facility] [address] [place] [address] 56307- 7804 Aug, Vitamin B12 deficiency E53.8 [facility] [address] [place] [address] 34293- 0990 Aug, [facility] [address] [place] [id number] [place] [address] 16984- 3996 Jul, Elevated ALT measurement R74.0 [facility] [address] [place] [address] 98078- 3576 Jul, Hematuria R31.9 ; Acute right-sided thoracic back pain M54.6 ; Major depressive disorder, recurrent episode, moderate F33.1 and Elevated ALT measurement R74.0 [facility] [address] [place] [id number] [place] [address] 96059- 0870 Jul, [facility] [address] [place] [id number] [place] [address] 28187- 5503 Jul, Elevated ALT measurement R74.0 [facility] [address] [place] [address] 61258- 4340 Jul, Iron deficiency anemia due to chronic blood loss D50.0 [facility] [address] [place] [address] 98386- 0501 Jul, Type 2 diabetes mellitus without complication E11.9 ; Acquired hypothyroidism E03.9 ; Iron deficiency anemia due to chronic blood loss D50.0 ; Hyperlipidemia E78.5 and Essential hypertension I10 [facility] [address] [address]- 7390 Jun, [facility] [address] [place] [id number] [place] [address] 33416- 1255 20 Jun, 2016 Vitamin B12 deficiency E53.8 [facility] [address] [address]- 4638 16 Jun, 2016 Type 2 diabetes mellitus without complication E11.9 ; Acquired hypothyroidism E03.9 ; Iron deficiency anemia due to chronic blood loss D50.0 ; Hyperlipidemia E78.5 ; Essential hypertension I10 ; Chronic tension -type headache, intractable G44.221 ; Pulsatile tinnitus, bilateral H93.13 ; Obstructive sleep apnea on CPAP G47.33 and Major depressive disorder, recurrent episode, moderate F33.1 [place] [address] [place] [address] 80598- 2602 May, Vitamin B12 deficiency E53.8 [place] [address] [place] [id number] [place] [address] 16616- 1137 May, [place] [address] [place] [id number] [place] [address] 19331- 9909 Apr, Vitamin B12 deficiency E53.8 [place] [address] [place] [id number] [place] [address] 20055- 2103 Apr, [place] [address] [place] [id number] [place] [address] 61149- 0795 Mar, Chronic tension-type headache, intractable G44.221 and Major depressive disorder, recurrent episode, moderate F33.1 [place] [address] [place] [id number] [place] [address] 57417- 1829 Mar, Vitamin B12 deficiency E53.8 [place] [address] [place] [id number] [place] [address] 82100- 9529 February, [place] [address] [place] [id number] [place] [address] 43525- 8100 February, Vitamin B12 deficiency E53.8 [place] [address] [place] [id number] [place] [address] 00413- 0997 February, [place] [address] [place] [id number] [place] [address] 61269- 9731 Jan, Dysuria R30.0 [place] [address] [place] [id number] [place] [address] 05754- 0306 Jan, Type 2 diabetes mellitus without complication E11.9 and Essential hypertension I10 [place] [address] [place] [id number] [place] [address] 72641- 2934 15 Jan, 2016 Chronic diarrhea K52.9 [facility] [address] [place] [id number] [place] [address] 33333- 6763 13 Jan, 2016 [facility] [address] [place] [id number] [place] [address] 04766- 6118 12 Jan, 2016 Chronic diarrhea K52.9 [facility] [address] [place] [id number] [place] [address] 04423- 9057 Jan, [facility] [address] [place] [id number] [place] [address] 48228- 8744 Jan, Dysuria R30.0 [place] [address] [place] [id number] [place] [address] 74772- 5940 07 Jan, 2016 Vitamin B12 deficiency E53.8 [place] [address] [place] [id number] [place] [address] 19699- 8149 07 Jan, 2016 Dysuria R30.0 and Iron deficiency anemia due to chronic blood loss D50.0 [facility] [address] [place] [id number] [place] [address] 06038- 1173 05 Jan, 2016 Dysuria R30.0 [place] [address] [place] [id number] [place] [address] 02714- 2585 04 Jan, 2016 [place] [address] [place] [id number] [place] [address] 48145- 8279 15 Dec, 2015 [facility] [address] [place] [id number] [place] [address] 71736- 6209 Dec, Iron deficiency anemia due to chronic blood loss D50.0 [place] [address] [place] [id number] [place] [address] 83968- 0972 10 Dec, 2015 Dysuria R30.0 ; Fatigue R53.83 ; Hyperlipidemia E78.5 and Diarrhea R19.7 [place] [address] [place] [id number] [place] [address] 05100- 2344 09 Dec, 2015 [facility] [address] [address]- 4834 Dec, [facility] [id number] [place] [address] 05315- 2245 Nov, Vitamin B12 deficiency E53.8 [facility] [address] [address]- 8478 Oct, Vitamin B12 deficiency E53.8 [facility] [address] [address]- 2817 Oct, [facility] [address] [address]5857 Oct, Headache R51 [facility] [address] [place] [address] 40027- 1737 07 Oct, 2015 Essential hypertension I10 ; Type 2 diabetes mellitus without complication E11.9 ; Vitamin B12 deficiency E53.8 ; Acquired hypothyroidism E03.9 ; Iron deficiency anemia due to chronic blood loss D50.0 and Hyperlipidemia E78.5 [facility] [address] [address]- 9296 Sep, Essential hypertension I10 ; Vitamin B12 deficiency E53.8 ; Iron deficiency anemia due to chronic blood loss D50.0 ; Type 2 diabetes mellitus without complication E11.9 ; Hyperlipidemia E78.5 and Acquired hypothyroidism E03.9 [facility] [address] [address]- 1789 08 Sep, 2015 [facility] [address] [address]- 9149 Sep, [facility] [address] [address]- 5503 05 Jul, 2015 [facility] [address] [address]- 6519 29 Jun, 2015 [facility] [address] [address]- 9329 18 Jun, 2015 [facility] [address] [place] [id number] [place] [address] 32598- 7013 Jun, Hyperlipidemia 272.4 ; Iron deficiency anemia 280.9 ; Hypothyroidism 244.9 ; Diabetes mellitus without mention of complication, type II or unspecified type, not stated as uncontrolled 250.00 and Hypertension 401.9 [facility] [address] [address]- 0898 Jun, [facility] [address] [place] [id number] [place] [address] 74405- 1904 Jun, [facility] [address] [place] [id number] [place] [address] 26821- 0776 May, Hyperlipidemia 272.4 [place] [address] [place] [id number] [place] [address] 76779- 5086 May, [facility] [address] [place] [id number] [place] [address] 05468- 1568 May, [facility] [address] [place] [id number] [place] [address] 05582- 5088 Apr, Diabetes mellitus without mention of complication, type II or unspecified type, not stated as uncontrolled 250.00 ; Hypothyroidism 244.9 ; Hyperlipidemia 272.4 ; Pain in joint, lower leg 719.46 and RUQ pain 789.01 [place] [address] [place] [address] 53222- 2760 Mar, Sinusitis 473.9 [place] [address] [place] [id number] [place] [address] 56140- 9683 Mar, [facility] [address] [place] [address] 28166- 4147 Mar, [facility] [address] [place] [id number] [place] [address] 24622- 2923 Mar, Hematochezia 578.1 [place] [id number] [place] [address] 01798- 7429 February, Sinusitis 473.9 [facility] [address] [place] [id number] [address]- 6616 February, [facility] [place] [facility] [address] [id number] [place] [address]- 0883 14 Jan, 2015 [facility] [place] [facility] [address] [id number] [place] [address]- 0856 Jan, [facility] [place] [facility] [address] [id number] [place] [address]- 6514 24 Dec, 2014 [facility] [place] [facility] [address] [id number] [place] [address]- 5680 24 Dec, 2014 [facility] [place] [facility] [address] [id number] [place] [address]- 0145 24 Dec, 2014 [facility] [place] [facility] [address] [id number] [place] [address]- 2287 Dec, [facility] [place] [facility] [address] [id number] [place] [address]- 7975 24 Dec, 2014 [facility] [place] [facility] [address] [id number] [place] [address]- 8156 24 Dec, 2014 [facility] [place] [facility] [address] [id number] [place] [address]- 1190 Dec, [facility] [place] [facility] [address] [id number] [place] [address]- 0649 Dec, [facility] [place] [facility] [address] [id number] [place] [address]- 3684 Dec, [facility] [place] [facility] [address] [id number] [place] [address]- 9173 Dec, [facility] [place] [facility] [address] [id number] [place] [address]- 4656 Dec, [facility] [place] [facility] [address] [id number] [place] [address]- 1846 18 Nov, 2014 [facility] [place] [facility] [address] [id number] [place] [address]- 2532 Nov, [facility] [place] [facility] [address] [id number] [place] [address]- 9599 Nov, [facility] [place] [facility] [address] [id number] [place] [address]- 7296 Nov, [facility] [place] [facility] [address] [facility] [id number] [place] [address]- 8822 Oct, [facility] [place] [facility] [address] [id number] [place] [address]- 3434 Oct, [facility] [place] [facility] [address] [id number] [place] [address]- 4402 Oct, [facility] [place] [facility] [address] [id number] [place] [address]- 8793 Oct, [facility] [place] [facility] [address] [facility] [id number] [place] [address]- 2076 Oct, [facility] [place] [facility] [address] [id number] [place] [address]- 1589 Oct, [facility] [place] [facility] [address] [id number] [place] [address]- 9670 Sep, [facility] [place] [facility] [address] [id number] [place] [address]- 2442 Sep, [facility] [place] [facility] [address] [id number] [address]- 0833 Sep, [facility] [place] [facility] [address] [id number] [place] [address]- 0675 Sep, [facility] [place] [facility] [address] [id number] [place] [address]- 1502 Sep, [facility] [place] [facility] [address] [id number] [place] [address]- 0583 Sep, [facility] [place] [facility] [address] [facility] [id number] [place] [address]- 0613 Sep, [facility] [place] [facility] [address] [id number] [place] [address]- 7923 Aug, [facility] [place] [facility] [address] [id number] [place] [address]- 8410 Aug, [facility] [place] [facility] [address] [id number] [place] [address]- 1113 Aug, [facility] [place] [facility] [address] [id number] [place] [address]- 4466 Aug, [facility] [place] [facility] [address] [id number] [place] [address]- 2140 Aug, [facility] [place] [facility] [address] [id number] [place] [address]- 1488 Aug, [facility] [place] [facility] [address] [id number] [place] [address]- 9948 Aug, [facility] [place] [facility] [address] [id number] [place] [address]- 6648 Aug, [facility] [place] [facility] [address] [id number] [place] [address] Aug, [facility] [place] [facility] [address] [id number] [place] [address] Aug, [facility] [place] [facility] [address] [facility] [id number] [place] [address] Aug, [facility] [place] [facility] [address] [id number] [place] [address] Aug, [facility] [place] [facility] [address] [id number] [place] [address] Aug, [facility] [place] [facility] [address] [id number] [place] [address] Aug, [facility] [place] [facility] [address] [id number] [place] [address] Jul, [facility] [place] [facility] [address] [id number] [place] [address] Jul, [facility] [place] [facility] [address] [id number] [place] [address] 06 Jul, 2013 [facility] [place] [facility] [address] [id number] [place] [address] Jul, [facility] [place] [facility] [address] [id number] [place] [address] 24 Jun, 2013 [facility] [place] [facility] [address] [id number] [place] [address] 24 Jun, 2013 [facility] [place] [facility] [address] [id number] [place] [address] 23 Jun, 2013 [facility] [place] [facility] [address] [id number] [place] [address] 23 Jun, 2013 [facility] [place] [facility] [address] [id number] [place] [address] 19 Jun, 2013 [facility] [place] [facility] [address] [id number] [place] [address] 19 Jun, 2013 [facility] [place] [facility] [address] [id number] [place] [address] 11 Jun, 2013 [facility] [place] [facility] [address] [id number] [place] [address]- [address] 11 Jun, 2013 [facility] [place] [facility] [address] [id number] [place] [address] 11 Jun, 2013 [facility] [place] [facility] [address] [id number] [place] [address] 11 Jun, 2013 [facility] [place] [facility] [address] [id number] [place] [address] 10 Jun, 2013 [facility] [place] [facility] [address] [id number] [place] [address] 10 Jun, 2013 [facility] [place] [facility] [address] [id number] [place] [address] 09 Jun, 2013 [facility] [place] [facility] [address] [id number] [place] [address] Jun, [facility] [place] [facility] [address] [id number] [place] [address] May, [facility] [place] [facility] [address] [id number] [place] [address] May, [facility] [place] [facility] [address] [id number] [place] [address] May, [facility] [place] [facility] [address] [id number] [place] [address] May, [facility] [place] [facility] [address] [id number] [place] [address] May, [facility] [place] [facility] [address] [id number] [place] [address] May, [facility] [place] [facility] [address] [id number] [place] [address] Apr, [facility] [place] [facility] [address] [id number] [place] [address] Apr, [facility] [place] [facility] [address] [id number] [place] [address] Apr, [facility] [place] [facility] [address] [id number] [place] [address] Apr, [facility] [place] [facility] [address] [id number] [place] [address] Apr, [facility] [place] [facility] [address] [id number] [place] [address] Apr, [facility] [place] [facility] [address] [id number] [place] [address] Apr, [facility] [place] [facility] [address] [id number] [place] [address] Apr, [facility] [place] [facility] [address] [id number] [place] [address] Apr, [facility] [place] [facility] [address] [id number] [place] [address] Apr, [facility] [address] [id number] [place] [address] Apr, [facility] [address] [id number] [place] [address] Mar, [facility] [address] [id number] [place] [address] Mar, [facility] [address] [id number] [place] [address]85 Mar, [facility] [address] [id number] [place] [address] Mar, [facility] [address] [id number] [place] [address] February, [facility] [address] [id number] [place] [address] February, [facility] [address] [id number] [place] [address] Jan, [facility] [address] [id number] [place] [address] Jan, [address] [id number] Jan [facility] [address] [id number] [place] [address] Jan, [facility] [address] [id number] [place] [address] Jan, [facility] [address] [id number] [place] [address] Jan, [facility] [address] [id number] [place] [address] Jan, [facility] [address] [id number] [place] [address] Jan, [facility] [place] [facility] [address] [id number] [place] [address] Jan, [facility] [place] [facility] [address] [id number] [place] [address] Jan, [facility] [place] [facility] [address] [id number] [place] [address] 10 Jan, 2014 [facility] [place] [facility] [address] [id number] [place] [address] Jan, [facility] [place] [facility] [address] [id number] [place] [address] Jan, [facility] [place] [facility] [address] [id number] [place] [address] Jan, [facility] [place] [facility] [address] [id number] [place] [address] Jan, [facility] [place] [facility] [address] [id number] [place] [address] Jan, [facility] [place] [facility] [address] [id number] [place] [address] Jan, [facility] [place] [facility] [address] [id number] [place] [address] 18 Dec, 2013 [facility] [place] [facility] [address] [id number] [place] [address] 18 Dec, 2013 [facility] [place] [facility] [address] [id number] [place] [address]- [address] 12 Dec, 2013 [facility] [place] [facility] [address] [id number] [place] [address] 12 Dec, 2013 [facility] [place] [facility] [address] [id number] [place] [address]- [address] 05 Dec, 2013 [facility] [place] [facility] [address] [id number] [place] [address] 05 Dec, 2013 [facility] [place] [facility] [address] [id number] [place] [address] Dec, [facility] [address] [id number] [place] [address] Nov, [facility] [place] [facility] [address] [facility] [id number] [place] [address] Nov, [facility] [place] [facility] [address] [facility] [id number] [place] [address] Nov, [facility] [place] [facility] [address] [facility] [id number] [place] [address] Nov, [facility] [place] [facility] [address] [facility] [id number] [place] [address] Nov, [facility] [place] [facility] [address] [facility] [id number] [place] [address]676 Nov, [facility] [address] [id number] [address] Nov, [facility] [place] [facility] [address] [facility] [id number] [place] [address]39 Oct, [facility] [place] [facility] [address] [facility] [id number] [place] [address]797 Oct, [facility] [place] [facility] [address] [facility] [id number] [place] [address] 97[address] Sep, [facility] [place] [facility] [address] [facility] [id number] [place] [address] Sep, [facility] [place] [facility] [address] [facility] [id number] [place] [address] Sep, [facility] [place] [facility] [address] [facility] [id number] [place] [address] Sep, [facility] [place] [facility] [address] [facility] [id number] [place] [address]- 1452 Sep, [facility] [place] [facility] [address] [facility] [id number] [place] [address] 1135 Sep, [facility] [place] [facility] [id number] [address] Sep, [facility] [id number] Sep, [facility] [id number] [address] Sep, [facility] [id number] [address] Sep, [facility] [address] [facility] [id number] [place] [address] Aug, [facility] [id number] [address] Aug, [facility] [id number] [address] Aug, [facility] [id number] [address] Aug, [facility] [id number] [address] Aug, [facility] [id number] [address] Jul, [facility] [id number] [address] Jul, [facility] [address] [id number] [address] Jul, [facility] [address] [id number] [address] Jul, IMMUNIZATIONS No Known Immunizations SOCIAL HISTORY Never Assessed REASON FOR VISIT Blood Sugar f/u -- madeline white, patient fell yesterday on her left shoulder she was at the [facility] , taking new medication prescribed by PLAN OF CARE Activity Details Follow Up 3 Months Reason:DMII VITAL SIGNS Height 62 in 2017-04-05 Weight 315.9 lbs 2017-04-05 Temperature 97.8 degrees Fahrenheit 2017-04-05 Heart Rate 78 bpm 2017-04-05 Respiratory Rate 20 2017-04-05 BMI 57.77 kg/m2 2017-04-05 Blood pressure systolic 136 mmHg 2017-04-05 Blood pressure diastolic 86 mmHg 2017-04-05 MEDICATIONS Medication Instructions Dosage Frequency Start Date End Date Duration Status Mercaptopurine 50 MG Active Cyanocobalamin 1000 MCG/ML 1 Active Vitamin D 1000 UNIT Orally Once a day 1 tablet 24h Mar, Apr, 30 day(s) Active Januvia 100 mg Orally Once a day 1 tablet 24h Mar, 90 days Active Levothyroxine Sodium 100 MCG Orally Once a day 1 tablet on an empty stomach in the morning 24h 90 days Active MetFORMIN HCl ER (OSM) 1000 MG Orally 2 times a day 1 tablet with evening meal 12h Mar, Active Ferrous Sulfate 325 (65 Fe) MG Orally Once a day 1 tablet 24h Dec, Active Zetia 10 mg Orally Once a day 1 tablet 24h 90 days Active Lisinopril 40 mg Orally Once a day 1 tablet 24h 90 days Active Fiber - Active Meloxicam 15 MG Orally Once a day 1 tablet as needed 24h May, 90 days Active Zoloft 100 mg Orally Once a day 2 tablets 24h 90 days Active RESULTS Name Result Date Reference Range A1C (IN HOUSE) 2017-04-05 A1C IN HOUSE 7.5 4.3 - 5.6 % Previous A1c 6.6 Lot [id number] Exp date 12/2018 Lexiscan Stress Nuclear Test 2017-06-01 PROCEDURES Procedure Date Ordered Result Body Site FOOT EXAM PERFORMED 2017-04-05 N/A GLYCATED HEMOGLOBIN TEST April 05, 2017 [facility] VISIT ESTABLISHED PATIENT April 05, 2017 FOOT EXAM PERFORMED April 05, 2017 INSTRUCTIONS MEDICATIONS ADMINISTERED No Known Medications [...]
--- OUTSIDE RECORDS SUMMARY | 2018-03-22 06:42 | XMS REPORT ---
Author Author BRENTON DORAN [facility] Address [address] [place] [address] Care Team Providers Care Family [employer] Teacher Name Role Phone BRENTON DORAN Unavailable PROBLEMS Type Condition ICD9-CM Code NHW62-NP Code Onset Dates Condition Status SNOMED Code Problem Anxiety F41.9 Active 94833104 Problem Chronic tension-type headache, intractable G44.221 Active 507943801 Problem Right upper quadrant pain R10.11 Active 66047261 Problem Vitamin D deficiency E55.9 Active 43959686 Problem Sensorineural hearing loss of right ear H90.41 Active 87811233 Problem BMI 50.0-59.9, adult Z68.43 Active 606499876 Problem Fatty liver K76.0 Active 539554090 Problem Frequent falls R29.6 Active 336005516 Problem Crohn's disease of both small and large intestine with complication K50.819 Active 11607696 Problem Type 2 diabetes mellitus with other specified complication E11.69 Active 622217344772 Problem Hyperlipidemia, unspecified E78.5 Active 14905338 Problem MACHUCA (nonalcoholic steatohepatitis) K75.81 Active 570040037 Problem Iron deficiency anemia due to chronic blood loss D50.0 Active 16359704 Problem Periodic limb movement sleep disorder G47.61 Active 597196373 Problem Obstructive sleep apnea on CPAP G47.33 Active 11840689 Problem Essential hypertension I10 Active 26356028 Problem Hyperlipidemia E78.5 Active 25792558 Problem Chronic diarrhea K52.9 Active 989236916 Problem Acquired hypothyroidism E03.9 Active 424669866 Problem Vitamin B12 deficiency E53.8 Active 750885432 Problem Major depressive disorder, recurrent episode, moderate F33.1 Active [id number] ALLERGIES No Information ENCOUNTERS Encounter Location Date Diagnosis [facility] [id number] [address] Mar, [facility] [id number] [place] [address] 71749- 3135 February, [facility] [id number] [place] [address] 07093- 6490 Jan, [facility] [id number] [place] [address] 68936- 7599 Jan, [facility] [id number] [place] [address] 72730 -6000 Jan, Diarrhea due to staphylococcus A04.8 and Diarrhea, unspecified type R19.7 [facility] [id number] [place] [address] 60221- 8959 Jan, Acquired hypothyroidism E03.9 ; Type 2 diabetes mellitus with other specified complication E11.69 ; Hyperlipidemia E78.5 ; Essential hypertension I10 ; Major depressive disorder, recurrent episode, moderate F33.1 and Vitamin D deficiency E55.9 [facility] [id number] [place] [address] 24801- 5710 Jan, Type 2 diabetes mellitus with other specified complication E11.69 ; Hyperlipidemia E78.5 ; Essential hypertension I10 ; Acquired hypothyroidism E03.9 ; Major depressive disorder, recurrent episode, moderate F33.1 ; Vitamin D deficiency E55.9 ; Sinus congestion R09.81 and BMI 50.0-59.9, adult Z68.43 [facility] [id number] [place] [address] 07488- 2611 Dec, [facility] [id number] [place] [address] 87310- 6148 Sep, Encounter for immunization Z23 [facility] [id number] [place] [address] 07763- 0210 Sep, [facility] [id number] [place] [address] 05169- 0559 Sep, Vitamin B12 deficiency E53.8 [facility] [id number] [place] [address] 30224- 2270 Aug, [facility] [id number] [place] [address] 99186- 2575 Aug, BMI 60.0-69.9, adult Z68.44 and Acute non-recurrent maxillary sinusitis J01.00 [facility] [id number] [place] [address] 78577- 7876 14 Aug, 2017 [facility] [id number] [place] [address] 76198- 0098 02 Aug, 2017 Medicare annual wellness visit, initial Z00.00 ; Screening for breast cancer Z12.31 ; BMI 40.0-44.9, adult Z68.41 and Acquired hypothyroidism E03.9 [facility] [id number] [place] [address] 12337- 3102 Jul, Actinic keratosis L57.0 [facility] [id number] [place] [address] 16130- 8370 Jul, Actinic keratosis L57.0 [facility] [id number] [place] [address] 86404- 2813 Jul, Type 2 diabetes mellitus with other specified complication E11.69 ; Actinic keratosis L57.0 and Hypothyroidism, unspecified E03.9 [facility] [id number] [place] [address] 19138- 5360 Jul, [facility] [id number] [place] [address] 45819- 4270 Jul, [facility] [id number] [place] [address] 73239- 1725 Jul, Vitamin B12 deficiency E53.8 [id number] [place] [address] 93938- 9669 Jun, Acquired hypothyroidism E03.9 and Chronic tension-type headache, intractable G44.221 [facility] [id number] [place] [address] 88948- 5201 Jun, Back muscle spasm M62.830 and BMI 50.0-59.9, adult Z68.43 [facility] [id number] [place] [address] 94305- 4814 Jun, Vitamin B12 deficiency E53.8 [facility] [address] 47748- 8500 Jun, Crohn's disease of both small and large intestine with complication K50.819 [facility] [address] 74894- 6531 Jun, Crohn's disease of both small and large intestine with complication K50.819 [facility] [address] 90070- 1801 May, Hyperlipidemia E78.5 ; Anxiety F41.9 and Essential hypertension I10 [facility] [address] 07303- 0908 May, [facility] [address] 35097- 9144 May, Encounter for immunization Z23 and Vitamin B12 deficiency E53.8 [facility] [address] 49455- 9084 May, [facility] [address] 83828- 7345 Apr, [facility] [id number] [place] [address] 99888- 2923 Apr, [facility] [id number] [place] [address] 49177- 0818 Apr, Crohn's disease of both small and large intestine with complication K50.819 [facility] [address] 77284- 5176 Apr, Vitamin B12 deficiency E53.8 [facility] [id number] [place] [address] 28212- 0489 Apr, Crohn's disease of both small and large intestine with complication K50.819 and Acute pain of right shoulder M25.511 [facility] [id number] [place] [address] 52208- 0247 Mar, Type 2 diabetes mellitus without complication E11.9 ; Frequent falls R29.6 and Other chest pain R07.89 [facility] [id number] [place] [address] 25353- 9055 14 Mar, 2017 [address] [address] 83156- 1627 Mar, [facility] [address] 67909- 3782 Mar, Type 2 diabetes mellitus without complication E11.9 and Blurry vision, bilateral H53.8 [facility] [id number] [place] [address] 48216- 7401 Mar, Vitamin B12 deficiency E53.8 [facility] [address] 89953- 3915 Mar, Crohn's disease of both small and large intestine with complication K50.819 [facility] [address] 78100- 7166 February, Vitamin B12 deficiency E53.8 [facility] [id number] [place] [address] 25319- 2538 Jan, Crohn's disease of both small and large intestine with complication K50.819 [facility] [id number] [place] [address] 69714- 3763 Jan, Crohn's disease of both small and large intestine with complication K50.819 [facility] [id number] [place] [address] 05476 -0431 Jan, Dark brown-colored urine R82.99 and Acute suppurative otitis media of right ear without spontaneous rupture of tympanic membrane, recurrence not specified H66.001 [facility] [address] 68222- 2842 Jan, Encounter for immunization Z23 [facility] [facility] [id number] [place] [address] 58149- 8266 Dec, Crohn's disease of both small and large intestine with complication K50.819 and Eustachian tube dysfunction, right H69.81 [facility] [facility] [id number] [place] [address] 87513- 4247 Dec, [facility] [address] 65724- 6052 Dec, Contusion of right knee, initial encounter S80.01XA [facility] [facility] [address] 00568- 4402 Dec, [facility] [id number] [place] [address] 63336- 5704 Dec, Acute pain of right knee M25.561 [facility] [facility] [address] 38086- 0607 Dec, Iron deficiency anemia due to chronic blood loss D50.0 [facility] [address] 08971- 0263 Dec, Hyperlipidemia E78.5 ; Type 2 diabetes mellitus without complication E11.9 ; Vitamin B12 deficiency E53.8 ; Essential hypertension I10 ; Obstructive sleep apnea on CPAP G47.33 and Periodic limb movement sleep disorder G47.61 [facility] [id number] [place] [address] 95837- 0850 Nov, Type 2 diabetes mellitus without complication E11.9 ; Vitamin B12 deficiency E53.8 ; Hyperlipidemia E78.5 ; Essential hypertension I10 ; Obstructive sleep apnea on CPAP G47.33 ; Periodic limb movement sleep disorder G47.61 ; Anxiety F41.9 ; Acquired hypothyroidism E03.9 and Chronic tension-type headache, intractable G44.221 [facility] [id number] [place] [address] 30589- 9178 Nov, Crohn's disease of both small and large intestine with complication K50.819 [facility] [id number] [place] [address] 64817- 1192 Nov, Vitamin B12 deficiency E53.8 [facility] [id number] [place] [address] 33850- 2323 Oct, [facility] [id number] [place] [address] 21626- 8339 Oct, Vitamin B12 deficiency E53.8 [facility] [id number] [place] [address] 77049- 5436 Sep, [facility] [id number] [place] [address] 29074- 9947 Sep, Vitamin B12 deficiency E53.8 [facility] [id number] [place] [address] 12113- 0802 Aug, [facility] [id number] [place] [address] 22574- 7387 Aug, Vitamin B12 deficiency E53.8 [facility] [id number] [place] [address] 50101- 7156 Aug, [facility] [id number] [place] [address] 30736- 2885 24 Jul, 2016 Elevated ALT measurement R74.0 [facility] [id number] [place] [address] 89066- 5617 Jul, Hematuria R31.9 ; Acute right-sided thoracic back pain M54.6 ; Major depressive disorder, recurrent episode, moderate F33.1 and Elevated ALT measurement R74.0 [facility] [id number] [place] [address] 71803- 3479 Jul, [facility] [id number] [place] [address] 60681- 0429 Jul, Elevated ALT measurement R74.0 [facility] [id number] [place] [address] 14447- 7282 Jul, Iron deficiency anemia due to chronic blood loss D50.0 [address] [facility] [address] [address]- 6928 14 Jul, 2016 Type 2 diabetes mellitus without complication E11.9 ; Acquired hypothyroidism E03.9 ; Iron deficiency anemia due to chronic blood loss D50.0 ; Hyperlipidemia E78.5 and Essential hypertension I10 [address] [facility] [id number] [place] [address] 30891- 7614 Jun, [facility] [facility] [id number] [place] [address] 04148- 5905 Jun, Vitamin B12 deficiency E53.8 [address] [facility] [id number] [place] [address] 05850- 5804 16 Jun, 2016 Type 2 diabetes mellitus without complication E11.9 ; Acquired hypothyroidism E03.9 ; Iron deficiency anemia due to chronic blood loss D50.0 ; Hyperlipidemia E78.5 ; Essential hypertension I10 ; Chronic tension -type headache, intractable G44.221 ; Pulsatile tinnitus, bilateral H93.13 ; Obstructive sleep apnea on CPAP G47.33 and Major depressive disorder, recurrent episode, moderate F33.1 [address] [id number] [place] [address] 72848- 2618 May, Vitamin B12 deficiency E53.8 [facility] [id number] [address]- 8728 May, [address] [facility] [id number] [place] [address] 34362- 6114 Apr, Vitamin B12 deficiency E53.8 [address] [address]- 6153 Apr, [address] [facility] [id number] [place] [address] 55469- 4754 Mar, Chronic tension-type headache, intractable G44.221 and Major depressive disorder, recurrent episode, moderate F33.1 [address] [id number] [place] [address] 62646- 0320 Mar, Vitamin B12 deficiency E53.8 [facility] [id number] [address]- 6974 February, [facility] [id number] [place] [address] 77693- 4921 February, Vitamin B12 deficiency E53.8 [facility] [id number] [place] [address] 10188- 0129 February, [facility] [id number] [place] [address] 73855- 6877 Jan, Dysuria R30.0 [facility] [id number] [place] [address] 51814- 6595 Jan, Type 2 diabetes mellitus without complication E11.9 and Essential hypertension I10 [facility] [id number] [place] [address] 80910- 5504 15 Jan, 2016 Chronic diarrhea K52.9 [facility] [id number] [place] [address] 14509- 2787 Jan, [facility] [id number] [place] [address] 37532- 6651 Jan, Chronic diarrhea K52.9 [facility] [id number] [place] [address] 31896- 2462 Jan, [facility] [id number] [place] [address] 65707- 0415 Jan, Dysuria R30.0 [facility] [id number] [place] [address] 39368- 9118 07 Jan, 2016 Vitamin B12 deficiency E53.8 [facility] [id number] [place] [address] 65661- 8956 07 Jan, 2016 Dysuria R30.0 and Iron deficiency anemia due to chronic blood loss D50.0 [facility] [id number] [place] [address] 26546- 0428 05 Jan, 2016 Dysuria R30.0 [facility] [id number] [address]- 1276 04 Jan, 2016 [facility] [id number] [place] [address] 88323- 6984 15 Dec, 2015 [facility] [id number] [place] [address] 89958- 9154 11 Dec, 2015 Iron deficiency anemia due to chronic blood loss D50.0 [facility] [id number] [place] [address] 10556- 3693 10 Dec, 2015 Dysuria R30.0 ; Fatigue R53.83 ; Hyperlipidemia E78.5 and Diarrhea R19.7 [address] [id number] [place] [address] 80177- 4693 Dec, [facility] [id number] [place] [address] 40414- 9976 Dec, [facility] [id number] [place] [address] 14314- 7191 Nov, Vitamin B12 deficiency E53.8 [address] [facility] [id number] [place] [address] 78859- 1721 Oct, Vitamin B12 deficiency E53.8 [facility] [id number] [place] [address] 45091- 1620 Oct, [facility] [id number] [place] [address] 78241 -4679 Oct, Headache R51 [facility] [id number] [place] [address] 16081- 9447 07 Oct, 2015 Essential hypertension I10 ; Type 2 diabetes mellitus without complication E11.9 ; Vitamin B12 deficiency E53.8 ; Acquired hypothyroidism E03.9 ; Iron deficiency anemia due to chronic blood loss D50.0 and Hyperlipidemia E78.5 [facility] [address] [address]- 0113 17 Sep, 2015 Essential hypertension I10 ; Vitamin B12 deficiency E53.8 ; Iron deficiency anemia due to chronic blood loss D50.0 ; Type 2 diabetes mellitus without complication E11.9 ; Hyperlipidemia E78.5 and Acquired hypothyroidism E03.9 [facility] [id number] [place] [address] 85122- 7526 Sep, [facility] [id number] [place] [address] 67717- 7528 Sep, [facility] [id number] [place] [address] 73090- 2681 Jul, [facility] [id number] [place] [address] 12123- 1750 Jun, [facility] [id number] [place] [address] 21488- 9285 Jun, [facility] [id number] [place] [address] 47898- 8777 Jun, Hyperlipidemia 272.4 ; Iron deficiency anemia 280.9 ; Hypothyroidism 244.9 ; Diabetes mellitus without mention of complication, type II or unspecified type, not stated as uncontrolled 250.00 and Hypertension 401.9 [facility] [id number] [place] [address] 13060- 0978 Jun, [facility] [id number] [place] [address] 60959- 3311 Jun, [facility] [id number] [place] [address] 58270- 8134 May, Hyperlipidemia 272.4 [facility] [address] [address]- 4933 May, [facility] [id number] [place] [address] 40672- 5512 May, [facility] [id number] [place] [address] 07642- 5242 Apr, Diabetes mellitus without mention of complication, type II or unspecified type, not stated as uncontrolled 250.00 ; Hypothyroidism 244.9 ; Hyperlipidemia 272.4 ; Pain in joint, lower leg 719.46 and RUQ pain 789.01 [facility] [address] [address]- 5113 15 Mar, 2015 Sinusitis 473.9 [facility] [id number] [address]- 5605 04 Mar, 2015 [facility] [id number] [place] [address] 96887- 8768 Mar, [facility] [id number] [place] [address] 76175- 2889 Mar, Hematochezia 578.1 [facility] [id number] [place] [address] 06285- 6774 February, Sinusitis 473.9 [facility] [id number] [place] [address] 42256- 1280 February, [facility] [id number] [place] [address] 29657- 8271 Jan, [facility] [id number] [place] [address] 62629- 6884 Jan, [facility] [id number] [place] [address] 65886- 1878 Dec, [facility] [id number] [address]- 8975 Dec, [facility] [id number] [address]- 8805 Dec, [facility] [id number] [address]- 3226 Dec, [facility] [id number] [place] [address] 96758- 5236 Dec, [facility] [id number] [address]- 5827 Dec, [facility] [id number] [address]- 5611 Dec, [facility] [place] [facility] [address] [id number] [place] [address]- 6581 Dec, [facility] [place] [facility] [address] [id number] [place] [address]- 4611 Dec, [facility] [place] [facility] [address] [id number] [place] [address]- 3901 Dec, [facility] [place] [facility] [address] [id number] [place] [address]- 3588 Dec, [facility] [place] [facility] [address] [id number] [place] [address]- 9718 Nov, [facility] [place] [facility] [address] [id number] [place] [address]- 7568 Nov, [facility] [place] [facility] [address] [id number] [place] [address]- 4813 Nov, [facility] [place] [facility] [address] [id number] [place] [address]- 4752 Nov, [facility] [place] [facility] [address] [id number] [place] [address]- 5478 Oct, [facility] [place] [facility] [address] [facility] [id number] [place] [address]- 5917 Oct, [facility] [place] [facility] [address] [id number] [place] [address]- 2373 Oct, [facility] [place] [facility] [address] [id number] [place] [address]- 2253 Oct, [facility] [place] [facility] [address] [id number] [place] [address]- 0384 Oct, [facility] [place] [facility] [address] [facility] [id number] [place] [address]- 6948 Oct, [facility] [place] [facility] [address] [facility] [id number] [place] [address]- 9595 Sep, [facility] [place] [facility] [address] [id number] [place] [address]- 9555 Sep, [facility] [place] [facility] [address] [id number] [place] [address]- 3344 Sep, [facility] [place] [facility] [address] [id number] [place] 1819 Sep, [facility] [place] [facility] [address] [id number] [place] [address]- 4212 Sep, [facility] [place] [facility] [address] [id number] [place] [address] Sep, [facility] [place] [facility] [address] [id number] [place] [address] Sep, [facility] [place] [facility] [address] [id number] [place] [address] Aug, [facility] [place] [facility] [address] [id number] [place] [address] Aug, [facility] [place] [facility] [address] [id number] [place] [address] Aug, [facility] [place] [facility] [address] [id number] [place] [address] Aug, [facility] [place] [facility] [address] [id number] [place] [address] Aug, [facility] [place] [facility] [address] [id number] [address] Aug, [facility] [place] [facility] [address] [id number] [place] [address] Aug, [facility] [place] [facility] [address] [id number] [place] [address] Aug, [facility] [place] [facility] [address] [id number] [address] 17 Aug, 2014 [facility] [place] [facility] [address] [id number] [address] Aug, [facility] [place] [facility] [address] [id number] [place] [address] Aug, [facility] [place] [facility] [address] [id number] [place] [address] Aug, [facility] [place] [facility] [address] [facility] [id number] [place] [address] Aug, [facility] [place] [facility] [address] [id number] [place] [address] Aug, [facility] [place] [facility] [address] [id number] [place] [address] Jul, [facility] [place] [facility] [address] [id number] [place] [address] Jul, [facility] [place] [facility] [address] [facility] [id number] [place] [address]- [address] Jul, [facility] [place] [facility] [address] [id number] [place] [address] Jul, [facility] [place] [facility] [address] [id number] [place] [address]- [address] 24 Jun, 2014 [facility] [place] [facility] [address] [id number] [place] [address] 24 Jun, 2014 [facility] [place] [facility] [address] [id number] [place] [address]- [address] 23 Jun, 2013 [facility] [place] [facility] [address] [id number] [address] 23 Jun, 2013 [facility] [place] [facility] [address] [id number] [place] [address] 19 Jun, 2013 [facility] [place] [facility] [address] [id number] [place] [address] 19 Jun, 2013 [facility] [place] [facility] [address] [facility] [id number] [place] [address]- [address] 11 Jun, 2013 [facility] [place] [facility] [address] [address] [id number] [place] [address] 11 Jun, 2013 [facility] [place] [facility] [address] [id number] [place] [address] 11 Jun, 2014 [facility] [place] [facility] [address] [id number] [place] [address] 11 Jun, 2013 [facility] [place] [facility] [address] [id number] [place] [address] 10 Jun, 2013 [facility] [place] [facility] [address] [id number] [place] [address] Jun, 2013 [facility] [place] [facility] [address] [id number] [place] [address] Jun, [facility] [place] [facility] [address] [id number] [place] [address] Jun, [facility] [place] [facility] [address] [id number] [place] [address] May, [facility] [place] [facility] [address] [id number] [place] [address] May, [facility] [place] [facility] [address] [id number] [place] [address] May, [facility] [place] [facility] [address] [id number] [place] [address] May, [facility] [place] [facility] [address] [id number] [place] [address] 8789 May, [facility] [place] [facility] [address] [id number] [place] [address] May, [facility] [place] [facility] [address] [id number] [place] [address] Apr, [facility] [place] [facility] [address] [id number] [place] [address] 67[address] Apr, [facility] [place] [facility] [address] [id number] [place] [address] Apr, [facility] [place] [facility] [address] [id number] [place] [address]- 2765 Apr, [facility] [place] [facility] [address] [id number] [place] [address]- 6549 Apr, [facility] [place] [facility] [address] [id number] [place] [address] Apr, [facility] [place] [facility] [address] [id number] [place] [address]- 2664 Apr, [facility] [place] [facility] [address] [id number] [place] [address] Apr, [facility] [place] [facility] [address] [id number] [place] [address] 3840 Apr, [facility] [place] [facility] [address] [id number] [place] [address]- 18[address] Apr, [facility] [place] [facility] [address] [id number] [place] [address] 7709 Apr, [facility] [place] [facility] [address] [id number] [place] [address]658 Mar, [facility] [place] [facility] [address] [id number] [place] [address]- 8474 Mar, [facility] [place] [facility] [address] [id number] [place] [address] 6091 Mar, [facility] [place] [facility] [address] [id number] [place] [address]- 7674 Mar, [facility] [place] [facility] [address] [id number] [place] [address] February, [facility] [place] [facility] [address] [id number] [place] [address] February, [facility] [place] [facility] [address] [id number] [place] [address]- 9868 Jan, [facility] [place] [facility] [address] [id number] [place] [address] Jan, Via [facility] 1 [facility] [place] [id number] Jan [facility] [address] [id number] [place] [address]- [address] Jan, [facility] [address] [id number] [place] [address] 4[address] Jan, [facility] [place] [facility] [address] [id number] [place] [address] 0958 Jan, [facility] [address] [id number] [place] [address]- 7658 Jan, [facility] [address] [id number] [place] [address] 1884 Jan, [facility] [address] [id number] [place] [address] Jan, [facility] [place] [facility] [address] [id number] [place] [address]- 3027 Jan, [facility] [place] [facility] [address] [id number] [place] [address]- 2772 Jan, [facility] [place] [facility] [address] [id number] [place] [address]- 3797 Jan, [facility] [place] [facility] [address] [id number] [place] [address] Jan, [facility] [place] [facility] [address] [id number] [place] [address]28 Jan, [facility] [place] [facility] [address] [id number] [place] [address]- [address]64 Jan, [facility] [place] [facility] [address] [id number] [place] [address]- 2413 Jan, [facility] [place] [facility] [address] [id number] [place] [address]- 1238 Jan, [facility] [place] [facility] [address] [id number] [place] [address]- 6680 Dec, [facility] [place] [facility] [address] [id number] [place] [address] 8907 Dec, [facility] [place] [facility] [address] [id number] [place] [address]- 0758 Dec, [facility] [place] [facility] [address] [id number] [place] [address]- 5013 Dec, [facility] [place] [facility] [address] [id number] [place] [address]- 6225 Dec, [facility] [place] [facility] [address] [id number] [place] [address]- 8929 Dec, [facility] [place] [facility] [address] [facility] [id number] [place] [address]- 4269 Dec, [facility] [place] [facility] [address] [facility] [id number] [place] [address]- [address]32 Nov, [facility] [place] [facility] [address] [id number] [place] [address]- 7931 Nov, [facility] [place] [facility] [address] [facility] [id number] [place] [address]- 77[address] Nov, [facility] [place] [facility] [address] [facility] [id number] [place] [address]- 6318 Nov, [facility] [place] [facility] [address] [facility] [id number] [place] [address] 3844 Nov, [facility] [place] [facility] [address] [facility] [id number] [place] [address]- 6475 Nov, [facility] [place] [facility] [address] [id number] [place] [address]- 9660 Nov, [facility] [place] [facility] [address] [facility] [id number] [place] [address]- 0020 Oct, [facility] [place] [facility] [address] [facility] [id number] [place] [address]- 9297 Oct, [facility] [address] [id number] [place] [address]- 2858 Sep, [facility] [place] [facility] [address] [id number] [place] [address]- 1596 Sep, [facility] [place] [facility] [address] [facility] [id number] [place] [address]- 8023 Sep, [facility] [place] [facility] [address] [id number] [place] [address]- 3047 Sep, [facility] [place] [facility] [address] [id number] [place] [address]- 6957 Sep, [facility] [place] [facility] [address] [id number] [place] [address]- 3694 Sep, [facility] [place] [facility] [address] [id number] [place] [address]- 1358 Sep, [facility] [place] [facility] [address] [id number] [place] [address]- 0868 Sep, [facility] [place] [facility] [address] [id number] [place] [address] Sep, [facility] [place] [facility] [address] [id number] [place] [address]- 1056 Sep, [facility] [place] [facility] [address] [id number] [address] Aug, [facility] [place] [facility] [address] [id number] [address]- 85[address] Aug, [facility] [place] [facility] [address] [id number] [place] [address]- 4178 Aug, [facility] [place] [facility] [address] [id number] [address]- [address] Aug, [facility] [place] [facility] [address] [id number] [address]- [address] Aug, [facility] [place] [facility] [address] [facility] [id number] [place] [address] Jul, [facility] [address] [facility] [id number] [place] [address]- 5869 Jul, [facility] [address] [facility] [id number] [place] [address] Jul, [facility] [address] [facility] [id number] [address] Jul, IMMUNIZATIONS No Known Immunizations SOCIAL HISTORY Never Assessed REASON FOR VISIT Questions PLAN OF CARE VITAL SIGNS MEDICATIONS Medication Instructions Dosage Frequency Start Date End Date Duration Status Cyanocobalamin 1000 MCG/ML Injection one time monthly inject 1 ml Mar, 90 days Active RESULTS No Results PROCEDURES No [...]
[2018-03-22] MEDS ORDERED: MIDAZOLAM 2 MG/2 ML (VERSED) VIAL ONE (06:43)
[2018-03-22] MEDS ORDERED: ONDANSETRON 4 MG/2 ML (SDV) Z0FRAN ONE ×2 (06:43→06:47)
[2018-03-22] MEDS ORDERED: ROCURONIUM 10 MG/ML 5 ML SYRINGE IV ONE ×2 (06:43→09:13)
[2018-03-22] MEDS ORDERED: proPOfol 200 MG/20 ML (DIPRIVAN) VIAL IV ONE (06:43)
[2018-03-22] MEDS ORDERED: LIDOCAINE PF 2% 5 ML (XYLOCAINE) VIAL ONE (06:43)
[2018-03-22] MEDS ORDERED: SUCCINYLCHOLINE INJ 100 MG/5 ML SYR ONE ×2 (06:43→09:12)
[2018-03-22] MEDS ORDERED: fentaNYL INJECTION 100 MCG/2 ML AMP ONE ×3 (06:43→09:11)
--- OUTSIDE RECORDS SUMMARY | 2018-03-22 06:43 | XMS REPORT ---
Author Author BRENTON DORAN Organization [facility], [place] Address [address] [place] [address] Care Team Providers Care Combination Machine Tool Setter Name Role Phone BRENTON DORAN Unavailable PROBLEMS Type Condition ICD9-CM Code GZY93-KC Code Onset Dates Condition Status SNOMED Code Problem Anxiety F41.9 Active 02911047 Problem Chronic tension-type headache, intractable G44.221 Active 734635528 Problem Right upper quadrant pain R10.11 Active 35999955 Problem Vitamin D deficiency E55.9 Active 24905124 Problem Sensorineural hearing loss of right ear H90.41 Active 28970639 Problem BMI 50.0-59.9, adult Z68.43 Active 137410269 Problem Fatty liver K76.0 Active 345346650 Problem Frequent falls R29.6 Active 661419870 Problem Crohn's disease of both small and large intestine with complication K50.819 Active 58260462 Problem Type 2 diabetes mellitus with other specified complication E11.69 Active 850162314412 Problem Hyperlipidemia, unspecified E78.5 Active 47908771 Problem MACHUCA (nonalcoholic steatohepatitis) K75.81 Active 491925698 Problem Iron deficiency anemia due to chronic blood loss D50.0 Active 25175374 Problem Periodic limb movement sleep disorder G47.61 Active 398988759 Problem Obstructive sleep apnea on CPAP G47.33 Active 47707616 Problem Essential hypertension I10 Active 03112023 Problem Hyperlipidemia E78.5 Active 76763556 Problem Chronic diarrhea K52.9 Active 748920959 Problem Acquired hypothyroidism E03.9 Active 799590498 Problem Vitamin B12 deficiency E53.8 Active 979664878 Problem Major depressive disorder, recurrent episode, moderate F33.1 Active [id number] ALLERGIES No Information ENCOUNTERS Encounter Location Date Diagnosis [facility], [place] [address] [facility] [id number] [address] Jan, [facility] [id number] [place] [address] 35615 -8736 Jan, Diarrhea due to staphylococcus A04.8 and Diarrhea, unspecified type R19.7 [place] [id number] [place] [address] 39044- 5843 Jan, Acquired hypothyroidism E03.9 ; Type 2 diabetes mellitus with other specified complication E11.69 ; Hyperlipidemia E78.5 ; Essential hypertension I10 ; Major depressive disorder, recurrent episode, moderate F33.1 and Vitamin D deficiency E55.9 [place] [id number] [place] [address] 64170- 3817 Jan, Type 2 diabetes mellitus with other specified complication E11.69 ; Hyperlipidemia E78.5 ; Essential hypertension I10 ; Acquired hypothyroidism E03.9 ; Major depressive disorder, recurrent episode, moderate F33.1 ; Vitamin D deficiency E55.9 ; Sinus congestion R09.81 and BMI 50.0-59.9, adult Z68.43 [place] [id number] [place] [address] 20055- 9358 Dec, [place] [id number] [place] [address] 83818- 0891 Sep, Encounter for immunization Z23 [place] [id number] [place] [address] 94770- 8850 Sep, [place] [id number] [place] [address] 94409- 4563 Sep, Vitamin B12 deficiency E53.8 [place] [id number] [place] [address] 14677- 9187 Aug, [place] [id number] [place] [address] 94406- 3838 Aug, BMI 60.0-69.9, adult Z68.44 and Acute non-recurrent maxillary sinusitis J01.00 [place] [id number] [place] [address] 68189- 9534 Aug, [place] [id number] [place] [address] 38361- 0998 02 Aug, 2017 Medicare annual wellness visit, initial Z00.00 ; Screening for breast cancer Z12.31 ; Acquired hypothyroidism E03.9 and BMI 40.0-44.9, adult Z68.41 [place] [id number] [place] [address] 76516- 0657 Jul, Actinic keratosis L57.0 [place] [address] 27609- 5829 Jul, Actinic keratosis L57.0 [place] [address] 86746- 4066 Jul, Type 2 diabetes mellitus with other specified complication E11.69 ; Actinic keratosis L57.0 and Hypothyroidism, unspecified E03.9 [place] [address] 78050- 4875 Jul, [place] [address] 33249- 9361 Jul, [place] [address] 39600- 1301 Jul, Vitamin B12 deficiency E53.8 [place] [id number] [place] [address] 89297- 1627 Jun, Acquired hypothyroidism E03.9 and Chronic tension-type headache, intractable G44.221 [place] [id number] [place] [address] 04536- 5629 Jun, Back muscle spasm M62.830 and BMI 50.0-59.9, adult Z68.43 [place] [address] 45861- 4664 Jun, Vitamin B12 deficiency E53.8 [place] [id number] [place] [address] 29469- 2065 Jun, Crohn's disease of both small and large intestine with complication K50.819 [place] [id number] [place] [address] 48922- 5105 Jun, Crohn's disease of both small and large intestine with complication K50.819 [place] [id number] [place] [address] 99503- 8081 May, Hyperlipidemia E78.5 ; Anxiety F41.9 and Essential hypertension I10 [place] [address] 38081- 9631 May, [place] [address] 77111- 4900 May, Encounter for immunization Z23 and Vitamin B12 deficiency E53.8 [place] [address] 27663- 9215 May, [place] [address] 32129- 6397 Apr, [place] [address] 03883- 6059 Apr, [place] [address] 70109- 4128 Apr, Crohn's disease of both small and large intestine with complication K50.819 [place] [id number] [place] [address] 72126- 2117 Apr, Vitamin B12 deficiency E53.8 [place] [id number] [place] [address] 25606- 5926 Apr, Crohn's disease of both small and large intestine with complication K50.819 and Acute pain of right shoulder M25.511 [place] [address] 83076- 2450 Mar, Type 2 diabetes mellitus without complication E11.9 ; Frequent falls R29.6 and Other chest pain R07.89 [place] [address] 44224- 1927 14 Mar, 2017 [place] [address] [place] [address] 47572- 2127 Mar, [place] [id number] [place] [address] 11530- 6279 Mar, Type 2 diabetes mellitus without complication E11.9 and Blurry vision, bilateral H53.8 [place] [id number] [place] [address] 43471- 8772 Mar, Vitamin B12 deficiency E53.8 [place] [id number] [place] [address] 42551- 9147 Mar, Crohn's disease of both small and large intestine with complication K50.819 [place] [id number] [place] [address] 21316- 7910 February, Vitamin B12 deficiency E53.8 [place] [id number] [place] [address] 00050- 7981 Jan, Crohn's disease of both small and large intestine with complication K50.819 [place] [id number] [place] [address] 86832- 5072 Jan, Crohn's disease of both small and large intestine with complication K50.819 [facility] [address] [place] [address] 54460 -1956 Jan, Dark brown-colored urine R82.99 and Acute suppurative otitis media of right ear without spontaneous rupture of tympanic membrane, recurrence not specified H66.001 [place] [address] [place] [address] 31235- 0659 Jan, Encounter for immunization Z23 [place] [id number] [place] [address] 78089- 0052 Dec, Crohn's disease of both small and large intestine with complication K50.819 and Eustachian tube dysfunction, right H69.81 [place] [id number] [place] [address] 57134- 4119 Dec, [place] [address] [address]- 4348 Dec, Contusion of right knee, initial encounter S80.01XA [place] [id number] [place] [address] 08239- 8120 Dec, [place] [id number] [place] [address] 59803- 1132 Dec, Acute pain of right knee M25.561 [place] [id number] [place] [address] 60062- 1362 Dec, Iron deficiency anemia due to chronic blood loss D50.0 [place] [id number] [place] [address] 46482- 9551 Dec, Hyperlipidemia E78.5 ; Type 2 diabetes mellitus without complication E11.9 ; Vitamin B12 deficiency E53.8 ; Essential hypertension I10 ; Obstructive sleep apnea on CPAP G47.33 and Periodic limb movement sleep disorder G47.61 [place] [id number] [place] [address] 08273- 1131 Nov, Type 2 diabetes mellitus without complication E11.9 ; Vitamin B12 deficiency E53.8 ; Hyperlipidemia E78.5 ; Essential hypertension I10 ; Obstructive sleep apnea on CPAP G47.33 ; Periodic limb movement sleep disorder G47.61 ; Anxiety F41.9 ; Acquired hypothyroidism E03.9 and Chronic tension-type headache, intractable G44.221 [place] [address] [place] [address] 63994- 0390 Nov, Crohn's disease of both small and large intestine with complication K50.819 [place] [id number] [place] [address] 48852- 9372 Nov, Vitamin B12 deficiency E53.8 [place] [address] [address]- 8994 Oct, [place] [id number] [place] [address] 16442- 0510 Oct, Vitamin B12 deficiency E53.8 [facility], [place] [address] [address]- 8762 Sep, [facility], [place] [address] [place] [address] 22982- 2714 Sep, Vitamin B12 deficiency E53.8 [facility], [place] [address] [place] [address] 27423- 1044 Aug, [facility] [place] [address] [place] [address] 37332- 2162 Aug, Vitamin B12 deficiency E53.8 [place] [address] [place] [address] 35447- 5145 Aug, [place] [id number] [place] [address] 72179- 2151 Jul, Elevated ALT measurement R74.0 [place] [address] [place] [address] 25559- 7303 Jul, Hematuria R31.9 ; Acute right-sided thoracic back pain M54.6 ; Major depressive disorder, recurrent episode, moderate F33.1 and Elevated ALT measurement R74.0 [place] [address] [place] [address] 89035- 4178 Jul, [place] [address] [place] [address] 28981- 5395 Jul, Elevated ALT measurement R74.0 [place] [address] [place] [address] 68934- 5432 Jul, Iron deficiency anemia due to chronic blood loss D50.0 [place] [address] [place] [address] 97578- 5302 Jul, Type 2 diabetes mellitus without complication E11.9 ; Acquired hypothyroidism E03.9 ; Iron deficiency anemia due to chronic blood loss D50.0 ; Hyperlipidemia E78.5 and Essential hypertension I10 [place] [id number] [place] [address] 98754- 9446 26 Jun, 2016 [place] [id number] [place] [address] 56924- 9595 20 Jun, 2016 Vitamin B12 deficiency E53.8 [facility], [place] [id number] [place] [address] 41754- 0372 16 Jun, 2016 Type 2 diabetes mellitus without complication E11.9 ; Acquired hypothyroidism E03.9 ; Iron deficiency anemia due to chronic blood loss D50.0 ; Hyperlipidemia E78.5 ; Essential hypertension I10 ; Chronic tension -type headache, intractable G44.221 ; Pulsatile tinnitus, bilateral H93.13 ; Obstructive sleep apnea on CPAP G47.33 and Major depressive disorder, recurrent episode, moderate F33.1 [place] [id number] [place] [address] 05927- 9472 May, Vitamin B12 deficiency E53.8 [place] [id number] [place] [address] 62008- 5639 May, [place] [id number] [place] [address] 43847- 7685 Apr, Vitamin B12 deficiency E53.8 [place] [id number] [place] [address] 02024- 2566 Apr, [place] [id number] [place] [address] 08950- 3356 Mar, Chronic tension-type headache, intractable G44.221 and Major depressive disorder, recurrent episode, moderate F33.1 [place] [address] [place] [address] 59184- 6654 14 Mar, 2016 Vitamin B12 deficiency E53.8 [place] [id number] [place] [address] 97134- 4329 February, [place] [id number] [place] [address] 56115- 2375 February, Vitamin B12 deficiency E53.8 [place] [id number] [place] [address] 99453- 4162 February, [facility] [place] [id number] [place] [address] 73652- 4004 27 Jan, 2016 Dysuria R30.0 [facility] [place] [id number] [place] [address] 95404- 5257 22 Jan, 2016 Essential hypertension I10 and Type 2 diabetes mellitus without complication E11.9 [facility] [place] [id number] [place] [address] 23815- 0867 15 Jan, 2016 Chronic diarrhea K52.9 [facility], [place] [id number] [place] [address] 22420- 7412 13 Jan, 2016 [facility] [place] [id number] [place] [address] 36784- 0116 Jan, Chronic diarrhea K52.9 [facility], [place] [id number] [place] [address] 54395- 0702 Jan, [facility] [place] [id number] [place] [address] 42576- 6546 12 Jan, 2016 Dysuria R30.0 [facility] [place] [id number] [place] [address] 31514 2547 07 Jan, 2016 Vitamin B12 deficiency E53.8 [facility] [place] [id number] [place] [address] 20815- 5328 07 Jan, 2016 Dysuria R30.0 and Iron deficiency anemia due to chronic blood loss D50.0 [facility] [place] [id number] [place] [address] 52485- 254 05 Jan, 2016 Dysuria R30.0 [facility] [place] [id number] [place] [address] 23383 2549 04 Jan, 2016 [facility] [place] [id number] [place] [address] 42879- 4770 15 Dec, 2015 [facility] [place] [id number] [place] [address] 18797- 4952 Dec, Iron deficiency anemia due to chronic blood loss D50.0 [facility] [place] [address] [place] [address] 31358- 1555 10 Dec, 2015 Dysuria R30.0 ; Fatigue R53.83 ; Hyperlipidemia E78.5 and Diarrhea R19.7 [facility] [place] [address] [address]- 1897 09 Dec, 2015 [facility] [place] [id number] [place] [address] 07180- 7766 Dec, [facility] [place] [id number] [place] [address] 59681- 6954 Nov, Vitamin B12 deficiency E53.8 [place] [id number] [place] [address] 53220- 5732 Oct, Vitamin B12 deficiency E53.8 [place] [id number] [place] [address] 40096- 3010 Oct, [facility] [address] [place] [address] 63792 -2294 09 Oct, 2015 Headache R51 [place] [id number] [place] [address] 63308- 4870 07 Oct, 2015 Essential hypertension I10 ; Type 2 diabetes mellitus without complication E11.9 ; Vitamin B12 deficiency E53.8 ; Acquired hypothyroidism E03.9 ; Iron deficiency anemia due to chronic blood loss D50.0 and Hyperlipidemia E78.5 [facility] [place] [address] [place] [address] 70008- 2398 17 Sep, 2015 Essential hypertension I10 ; Vitamin B12 deficiency E53.8 ; Iron deficiency anemia due to chronic blood loss D50.0 ; Type 2 diabetes mellitus without complication E11.9 ; Hyperlipidemia E78.5 and Acquired hypothyroidism E03.9 [facility] [place] [address] [address]- 6212 Sep, [facility] [place] [address] [place] [address] 64704- 9442 Sep, [facility] [place] [address] [place] [address] 75752- 2320 Jul, [facility] [place] [id number] [place] [address] 91604- 4872 Jun, [facility] [place] [id number] [place] [address] 98500- 3958 Jun, [facility] [place] [id number] [place] [address] 32744- 3770 Jun, Hyperlipidemia 272.4 ; Iron deficiency anemia 280.9 ; Hypothyroidism 244.9 ; Diabetes mellitus without mention of complication, type II or unspecified type, not stated as uncontrolled 250.00 and Hypertension 401.9 [facility] [place] [id number] [place] [address] 75180- 1641 Jun, [facility] [place] [id number] [place] [address] 14082- 8066 Jun, [facility] [place] [id number] [place] [address] 96657- 4848 May, Hyperlipidemia 272.4 [facility] [place] [id number] [place] [address] 99544- 3011 May, [facility] [place] [address] [place] [address] 50253- 6067 May, [facility] [place] [id number] [place] [address] 46158- 7885 Apr, Diabetes mellitus without mention of complication, type II or unspecified type, not stated as uncontrolled 250.00 ; Hypothyroidism 244.9 ; Hyperlipidemia 272.4 ; Pain in joint, lower leg 719.46 and RUQ pain 789.01 [facility] [place] [id number] [place] [address] 47351- 9137 Mar, Sinusitis 473.9 [facility] [place] [id number] [place] [address] 37176- 0146 Mar, [facility] [place] [address] [facility] [id number] [address]- 4953 Mar, [facility] [address] [facility] [id number] [address]- 9172 Mar, Hematochezia 578.1 [facility] [address] [facility] [id number] [address]- 9774 February, Sinusitis 473.9 [facility] [address] [id number] [address]- 2591 February, [facility] [address] [id number] [place] [address]- 7428 Jan, [facility] [address] [facility] [id number] [address]- 9840 Jan, [facility] [id number] [address]- 8627 24 Dec, 2014 [facility] [address] [facility] [id number] [address]- 0825 24 Dec, 2014 [facility] [address] [id number] [place] [address]- 2717 24 Dec, 2014 [facility] [address] [facility] [id number] [address]- 1214 24 Dec, 2014 [facility] [address] [facility] [id number] [address]- 6397 24 Dec, 2014 [facility] [address] [id number] [address]- 3964 24 Dec, 2014 [facility] [address] [facility] [id number] [place] [address]- 0389 23 Dec, 2014 [facility] [address] [facility] [id number] [address]- 1605 13 Dec, 2014 [facility] [address] [facility] [id number] [address]- 8043 Dec, [facility] [address] [facility] [id number] [place] [address]- 5689 Dec, [facility] [place] [facility] [address] [id number] [place] [address]- 9560 Dec, [facility] [place] [facility] [address] [id number] [place] [address]- 4129 Nov, [facility] [place] [facility] [address] [id number] [place] [address]- 3801 Nov, [facility] [place] [facility] [address] [id number] [place] [address]- 1622 Nov, [facility] [place] [facility] [address] [id number] [place] [address]- 8495 Nov, [facility] [place] [facility] [address] [id number] [place] [address]- 2852 Oct, [facility] [place] [facility] [address] [facility] [id number] [place] [address]- 5702 Oct, [facility] [place] [facility] [address] [id number] [place] [address]- 9019 Oct, [facility] [place] [facility] [address] [facility] [id number] [place] [address]- 3398 Oct, [facility] [place] [facility] [address] [facility] [id number] [place] [address]- 0496 Oct, [facility] [place] [facility] [address] [facility] [id number] [place] [address]- 3582 Oct, [facility] [place] [facility] [address] [id number] [place] [address]- 9130 Sep, [facility] [place] [facility] [address] [id number] [place] [address]- 5073 Sep, [facility] [place] [facility] [address] [id number] [place] [address]- 5856 Sep, [facility] [place] [facility] [address] [facility] [id number] [place] [address]- 5517 Sep, [facility] [place] [facility] [address] [id number] [place] [address]- 3486 Sep, [facility] [place] [facility] [address] [id number] [place] [address]- 4332 Sep, [facility] [place] [facility] [address] [id number] [place] [address] Sep, [facility] [place] [facility] [address] [id number] [place] [address] Aug, [facility] [place] [facility] [address] [id number] [place] [address] Aug, [facility] [place] [facility] [address] [id number] [place] [address] Aug, [facility] [place] [facility] [address] [id number] [place] [address] Aug, [facility] [place] [facility] [address] [id number] [place] [address] Aug, [facility] [place] [facility] [address] [id number] [place] [address] Aug, [facility] [place] [facility] [address] [id number] [address] Aug, [facility] [place] [facility] [address] [id number] [place] [address] Aug, [facility] [place] [facility] [address] [id number] [place] [address] Aug, [facility] [place] [facility] [address] [id number] [place] [address] Aug, [facility] [place] [facility] [address] [id number] [address] Aug, [facility] [place] [facility] [address] [id number] [place] [address] Aug, [facility] [place] [facility] [address] [id number] [address] Aug, [facility] [place] [facility] [address] [id number] [place] [address] Aug, [facility] [place] [facility] [address] [id number] [place] [address] Jul, [facility] [place] [facility] [address] [id number] [place] [address] Jul, [facility] [place] [facility] [address] [id number] [place] [place] [address] Jul, [facility] [place] [facility] [address] [id number] [place] [address] Jul, [facility] [place] [facility] [address] [id number] [place] [address] 24 Jun, 2014 [facility] [place] [facility] [address] [id number] [place] [address] 24 Jun, 2013 [facility] [place] [facility] [address] [id number] [place] [address] 23 Jun, 2013 [facility] [place] [facility] [address] [id number] [place] [address] 23 Jun, 2013 [facility] [place] [facility] [address] [id number] [place] [address] 19 Jun, 2013 [facility] [place] [facility] [address] [id number] [address] 19 Jun, 2013 [facility] [place] [facility] [address] [id number] [address] 11 Jun, 2013 [facility] [place] [facility] [address] [id number] [place] [address] 7[address] 11 Jun, 2013 [facility] [place] [facility] [address] [id number] [place] [address] 11 Jun, 2013 [facility] [place] [facility] [address] [id number] [address] 11 Jun, 2013 [facility] [place] [facility] [address] [id number] [place] [address] 10 Jun, 2014 [facility] [place] [facility] [address] [id number] [place] [address] 69[address] Jun, [facility] [place] [facility] [address] [id number] [place] [address] Jun, [facility] [place] [facility] [address] [id number] [place] [address] 7[address] Jun, [facility] [place] [facility] [address] [id number] [place] [address] 07[address] May, [facility] [place] [facility] [address] [id number] [place] [address] 58[address] May, [facility] [place] [facility] [address] [id number] [place] [address]- 265[address] May, [facility] [place] [facility] [address] [id number] [place] [address] May, [facility] [place] [facility] [address] [id number] [place] [address]- [address]283 May, [facility] [place] [facility] [address] [id number] [place] [address] 39[address] May, [facility] [place] [facility] [address] [id number] [place] [address]006 Apr, [facility] [place] [facility] [address] [id number] [place] [address]31 Apr, [facility] [place] [facility] [address] [id number] [place] [address] Apr, [facility] [place] [facility] [address] [id number] [place] [address] 4108 Apr, [facility] [place] [facility] [address] [id number] [place] [address]- 4127 Apr, [facility] [place] [facility] [address] [id number] [place] [address] Apr, [facility] [address] [id number] [place] [address]- 4377 Apr, [facility] [place] [facility] [address] [id number] [place] [address]- 3471 Apr, [facility] [place] [facility] [address] [id number] [place] [address]70 Apr, [facility] [place] [facility] [address] [id number] [place] [address]- 6089 Apr, [facility] [place] [facility] [address] [id number] [place] [address] 3455 Apr, [facility] [place] [facility] [address] [id number] [place] [address] 59[address] Mar, [facility] [place] [facility] [address] [id number] [place] [address] Mar, [facility] [place] [facility] [address] [id number] [place] [address] 9118 Mar, [facility] [place] [facility] [address] [id number] [place] [address] 0959 Mar, [facility] [place] [facility] [address] [id number] [place] [address] 4[address] February, [facility] [address] [id number] [place] [address] 9[address] February, [facility] [address] [id number] [place] [address] Jan, [facility] [place] [facility] [address] [id number] [place] [address] 8531 Jan, [facility] [address] [place] [id number] Jan [facility] [place] [facility] [address] [id number] [place] [address] 7610 Jan, [facility] [address] [id number] [place] [address]- 9888 Jan, [facility] [place] [facility] [address] [id number] [place] [address]- [address] Jan, [facility] [place] [facility] [address] [id number] [place] [address]- 5048 Jan, [facility] [place] [facility] [address] [id number] [place] [address]- 0858 Jan, [facility] [place] [facility] [address] [id number] [place] [address]- 3040 Jan, [facility] [place] [facility] [address] [id number] [place] [address]- 5254 Jan, [facility] [place] [facility] [address] [id number] [place] [address]- 7704 Jan, [facility] [place] [facility] [address] [id number] [place] [address]- 3745 Jan, [facility] [place] [facility] [address] [id number] [place] [address]- 8316 Jan, [facility] [place] [facility] [address] [id number] [place] [address]- 9489 Jan, [facility] [place] [facility] [address] [id number] [place] [address]- 3387 Jan, [facility] [place] [facility] [address] [id number] [place] [address]- 8650 Jan, [facility] [place] [facility] [address] [id number] [place] [address]- 8264 Jan, [facility] [place] [facility] [address] [id number] [place] [address] 1330 Dec, [facility] [place] [facility] [address] [id number] [place] [address]- 0082 Dec, [facility] [place] [facility] [address] [id number] [place] [address]- 1816 Dec, [facility] [place] [facility] [address] [id number] [place] [address]- 7761 Dec, [facility] [place] [facility] [address] [id number] [place] [address]- 1469 Dec, [facility] [place] [facility] [address] [id number] [place] [address]- 3686 Dec, [facility] [place] [facility] [address] [id number] [place] [address]- 8010 Dec, [facility] [place] [facility] [address] [id number] [place] [address]- 5585 Nov, [facility] [place] [facility] [address] [id number] [place] [address]- 9617 Nov, [facility] [place] [facility] [address] [id number] [place] [address]- 1267 Nov, [facility] [place] [facility] [address] [id number] [place] [address]- 0700 Nov, [facility] [place] [facility] [address] [id number] [place] [address]- 3150 Nov, [facility] [place] [facility] [address] [id number] [place] [address]- 2668 Nov, [facility] [place] [facility] [address] [id number] [place] [address]- 2901 Nov, [facility] [place] [facility] [address] [id number] [place] [address]- 8631 Oct, [facility] [place] [facility] [address] [id number] [place] [address]- 4756 Oct, [facility] [place] [facility] [address] [id number] [place] [address]- 1865 Sep, [facility] [place] [facility] [address] [id number] [place] [address]- 5625 Sep, [facility] [place] [facility] [address] [id number] [place] [address] Sep, [facility] [place] [facility] [address] [id number] [place] [address] Sep, [facility] [place] [facility] [address] [id number] [place] [address]- 8220 Sep, [facility] [place] [facility] [address] [facility] [id number] [place] [address]- 0323 Sep, [facility] [place] [facility] [address] [id number] [place] [address]- 7852 Sep, [facility] [place] [facility] [address] [id number] [place] [address] Sep, [facility] [place] [facility] [address] [id number] [place] [address]- 0387 Sep, [facility] [place] [facility] [address] [id number] [place] [address]- 8467 Sep, [facility] [place] [facility] [address] [id number] [place] [address]- 1003 Aug, [facility] [place] [facility] [address] [id number] [place] [address]- 8[address] Aug, [facility] [place] [facility] [address] [id number] [place] [address]- 5[address] Aug, [facility] [place] [facility] [address] [id number] [place] [address]- 3485 Aug, [facility] [place] [facility] [address] [id number] [place] [address]- 9714 Aug, [facility] [place] [facility] [address] [id number] [place] [address]- 5469 Jul, [facility] [place] [facility] [address] [id number] [place] [address]- [address]84 30 Jul, 2013 [facility] [place] [facility] [address] [id number] [address]- 73[address] 16 Jul, 2013 [facility] [place] [facility] [address] [facility] [id number] [place] [address] 16 Jul, 2013 IMMUNIZATIONS No Known Immunizations SOCIAL HISTORY Never Assessed REASON FOR VISIT Lab orders PLAN OF CARE VITAL SIGNS MEDICATIONS Unknown [...]
--- OUTSIDE RECORDS SUMMARY | 2018-03-22 06:43 | XMS REPORT ---
Author Author BRENTON DORAN Organization [facility] Address [address] [place] [address] Care Team Providers Care Service Desk Lead Name Role Phone BRENTON DORAN Unavailable PROBLEMS Type Condition ICD9-CM Code TIN17-HA Code Onset Dates Condition Status SNOMED Code Problem Iron deficiency anemia due to chronic blood loss D50.0 Active 32687928 Problem Major depressive disorder, recurrent episode, moderate F33.1 Active 571395974 Problem Acquired hypothyroidism E03.9 Active 683850345 Problem Frequent falls R29.6 Active 294287108 Problem Crohn's disease of both small and large intestine with complication K50.819 Active 10577549 Problem Anxiety F41.9 Active 30576070 Problem Type 2 diabetes mellitus without complication E11.9 Active 22520629 Problem Chronic tension-type headache, intractable G44.221 Active 936748615 Problem Chronic diarrhea K52.9 Active 227655448 Problem Periodic limb movement sleep disorder G47.61 Active 360263106 Problem Fatty liver K76.0 Active 626508722 Problem Essential hypertension I10 Active 24094965 Problem Hyperlipidemia E78.5 Active 36274717 Problem Sensorineural hearing loss of right ear H90.41 Active 62435111 Problem Right upper quadrant pain R10.11 Active 30133833 Problem Obstructive sleep apnea on CPAP G47.33 Active 08250847 Problem Vitamin B12 deficiency E53.8 Active 678209970 ALLERGIES Unknown Allergies SOCIAL HISTORY No smoking Hx information available PLAN OF CARE VITAL SIGNS MEDICATIONS Medication Instructions Dosage Frequency Start Date End Date Duration Status Lactulose 20 GM/30ML Orally Once a day 15 ml 24h Sep, Nov, 30 day(s) Active RESULTS No Results PROCEDURES No Known procedures IMMUNIZATIONS No Known Immunizations
--- OUTSIDE RECORDS SUMMARY | 2018-03-22 06:44 | XMS REPORT ---
Author Author BRENTON DORAN [facility] Address [address] [place] [address] Care Team Providers Care Milk Tester Name Role Phone BRENTON DORAN Unavailable PROBLEMS Type Condition ICD9-CM Code ZAJ32-HZ Code Onset Dates Condition Status SNOMED Code Problem Anxiety F41.9 Active 28687728 Problem Chronic tension-type headache, intractable G44.221 Active 238390438 Problem Right upper quadrant pain R10.11 Active 89791294 Problem Vitamin D deficiency E55.9 Active 71314425 Problem Sensorineural hearing loss of right ear H90.41 Active 48814181 Problem BMI 50.0-59.9, adult Z68.43 Active 873343891 Problem Fatty liver K76.0 Active 602139025 Problem Frequent falls R29.6 Active 263952112 Problem Crohn's disease of both small and large intestine with complication K50.819 Active 25366187 Problem Type 2 diabetes mellitus with other specified complication E11.69 Active 714670602262 Problem Hyperlipidemia, unspecified E78.5 Active 17735898 Problem MACHUCA (nonalcoholic steatohepatitis) K75.81 Active 607869267 Problem Iron deficiency anemia due to chronic blood loss D50.0 Active 32071970 Problem Periodic limb movement sleep disorder G47.61 Active 477985816 Problem Obstructive sleep apnea on CPAP G47.33 Active 62354790 Problem Essential hypertension I10 Active 42948778 Problem Hyperlipidemia E78.5 Active 62075110 Problem Chronic diarrhea K52.9 Active 569513446 Problem Acquired hypothyroidism E03.9 Active 268951620 Problem Vitamin B12 deficiency E53.8 Active 335439564 Problem Major depressive disorder, recurrent episode, moderate F33.1 Active 556373302 ALLERGIES No Information ENCOUNTERS Encounter Location Date Diagnosis [facility] [id number] [address] Jan, [facility] [id number] [place] [address] 34441- 4489 Jan, Type 2 diabetes mellitus with other specified complication E11.69 ; Hyperlipidemia E78.5 ; Essential hypertension I10 ; Acquired hypothyroidism E03.9 ; Major depressive disorder, recurrent episode, moderate F33.1 ; Vitamin D deficiency E55.9 ; Sinus congestion R09.81 and BMI 50.0-59.9, adult Z68.[address] [address]- [address] Dec, [address] [address]- 3942 Sep, Encounter for immunization Z23 [address] [address]- 1788 Sep, [address] 31900- 9184 Sep, Vitamin B12 deficiency E53.[address] 5[address]29- 5558 Aug, [address] 66734- 2243 Aug, BMI 60.0-69.9, adult Z68.44 and Acute non-recurrent maxillary sinusitis J01.[address] [address]75- 0621 Aug, [address] 96992- 7633 Aug, Medicare annual wellness visit, initial Z00.00 ; Screening for breast cancer Z12.31 ; Acquired hypothyroidism E03.9 and BMI 40.0-44.9, adult Z68.[address] [address]11- 8505 Jul, Actinic keratosis L57.[address] 60416- 9080 Jul, Actinic keratosis L57.0 [facility] [id number] [place] [address] 14552- 0196 Jul, Type 2 diabetes mellitus with other specified complication E11.69 ; Actinic keratosis L57.0 and Hypothyroidism, unspecified E03.9 [place] [facility] [id number] [place] [address] 50460- 7794 Jul, [place] [address] 45207- 6610 Jul, [place] [address] 47933- 6944 Jul, Vitamin B12 deficiency E53.8 [place] [address] 44669- 0353 Jun, Acquired hypothyroidism E03.9 and Chronic tension-type headache, intractable G44.221 [place] [address] 96780- 1602 Jun, Back muscle spasm M62.830 and BMI 50.0-59.9, adult Z68.43 [place] [address] 48620- 0892 Jun, Vitamin B12 deficiency E53.8 [place] [id number] [place] [address] 09679- 0737 Jun, Crohn's disease of both small and large intestine with complication K50.819 [place] [id number] [place] [address] 68899- 7188 Jun, Crohn's disease of both small and large intestine with complication K50.819 [place] [facility] [id number] [place] [address] 03572- 4969 May, Hyperlipidemia E78.5 ; Anxiety F41.9 and Essential hypertension I10 [place] [id number] [place] [address] 50492- 9802 May, [place] [address] [address] 7[address] May, Encounter for immunization Z23 and Vitamin B12 deficiency E53.8 [place] [facility] [id number] [place] [address] 79581- 3914 May, [place] [id number] [place] [address] 60784- 2301 Apr, [place] [id number] [place] [address] 99160- 2930 Apr, [place] [id number] [place] [address] 13984- 8784 Apr, Crohn's disease of both small and large intestine with complication K50.819 [place] [facility] [id number] [place] [address] 73819- 9397 Apr, Vitamin B12 deficiency E53.8 [place] [facility] [id number] [place] [address] 68546- 5999 Apr, Crohn's disease of both small and large intestine with complication K50.819 and Acute pain of right shoulder M25.511 [place] [id number] [place] [address] 91724- 8246 Mar, Type 2 diabetes mellitus without complication E11.9 ; Frequent falls R29.6 and Other chest pain R07.89 [place] [facility] [id number] [place] [address] 85359- 3304 Mar, [place] [id number] [place] [address] 39586- 5621 Mar, [place] [id number] [place] [address] 88459- 8693 Mar, Type 2 diabetes mellitus without complication E11.9 and Blurry vision, bilateral H53.8 [place] [id number] [place] [address] 87006- 5551 Mar, Vitamin B12 deficiency E53.8 [place] [address] [place] [address] 25272- 6263 Mar, Crohn's disease of both small and large intestine with complication K50.819 [place] [id number] [place] [address] 70325- 8114 February, Vitamin B12 deficiency E53.8 [place] [id number] [place] [address] 72401- 8760 Jan, Crohn's disease of both small and large intestine with complication K50.819 [facility] [id number] [place] [address] 66720- 9742 Jan, Crohn's disease of both small and large intestine with complication K50.819 [facility] [address] [place] [address] 76086 -9352 Jan, Dark brown-colored urine R82.99 and Acute suppurative otitis media of right ear without spontaneous rupture of tympanic membrane, recurrence not specified H66.001 [place] [id number] [place] [address] 33278- 7354 Jan, Encounter for immunization Z23 [place] [facility] [id number] [place] [address] 27720- 8602 Dec, Crohn's disease of both small and large intestine with complication K50.819 and Eustachian tube dysfunction, right H69.81 [place] [id number] [place] [address] 99394- 3645 Dec, [place] [id number] [place] [address] 89289- 9454 Dec, Contusion of right knee, initial encounter S80.01XA [place] [id number] [place] [address] 00597- 3301 Dec, [place] [id number] [place] [address] 13555- 3379 Dec, Acute pain of right knee M25.561 [place] [id number] [place] [address] 41580- 5438 Dec, Iron deficiency anemia due to chronic blood loss D50.0 [place] [id number] [place] [address] 35746- 7712 Dec, Hyperlipidemia E78.5 ; Type 2 diabetes mellitus without complication E11.9 ; Vitamin B12 deficiency E53.8 ; Essential hypertension I10 ; Obstructive sleep apnea on CPAP G47.33 and Periodic limb movement sleep disorder G47.61 [place] [id number] [place] [address] 22184- 6062 Nov, Type 2 diabetes mellitus without complication E11.9 ; Vitamin B12 deficiency E53.8 ; Hyperlipidemia E78.5 ; Essential hypertension I10 ; Obstructive sleep apnea on CPAP G47.33 ; Periodic limb movement sleep disorder G47.61 ; Anxiety F41.9 ; Acquired hypothyroidism E03.9 and Chronic tension-type headache, intractable G44.221 [place] [id number] [place] [address] 06868- 0620 Nov, Crohn's disease of both small and large intestine with complication K50.819 [place] [id number] [place] [address] 99892- 1350 Nov, Vitamin B12 deficiency E53.8 [place] [id number] [place] [address] 98349- 7942 Oct, [place] [id number] [place] [address] 84450- 4532 Oct, Vitamin B12 deficiency E53.8 [place] [address] [place] [address] 55785- 4829 Sep, [place] [id number] [place] [address] 30640- 6090 Sep, Vitamin B12 deficiency E53.8 [place] [address] [place] [address] 18024- 8990 Aug, [place] [address], [place] [address]- 4897 Aug, Vitamin B12 deficiency E53.8 [place] [id number] [place] [address] 55606- 0914 Aug, [place] [id number] [place] [address] 94690- 9614 24 Jul, 2016 Elevated ALT measurement R74.0 [place] [id number] [place] [address] 94776- 5804 Jul, Hematuria R31.9 ; Acute right-sided thoracic back pain M54.6 ; Major depressive disorder, recurrent episode, moderate F33.1 and Elevated ALT measurement R74.0 [place] [id number] [place] [address] 98808- 7262 Jul, [place] [id number] [place] [address] 79291- 6315 Jul, Elevated ALT measurement R74.0 [address] [address] [place] [address] 53088- 1020 Jul, Iron deficiency anemia due to chronic blood loss D50.0 [place] [address] [place] [address] 80357- 8019 Jul, Type 2 diabetes mellitus without complication E11.9 ; Acquired hypothyroidism E03.9 ; Iron deficiency anemia due to chronic blood loss D50.0 ; Hyperlipidemia E78.5 and Essential hypertension I10 [place] [address] [address]- 1380 Jun, [place] [address] [place] [address] 92400- 4319 20 Jun, 2016 Vitamin B12 deficiency E53.8 [facility] [address] [address]- 6790 16 Jun, 2016 Type 2 diabetes mellitus without complication E11.9 ; Acquired hypothyroidism E03.9 ; Iron deficiency anemia due to chronic blood loss D50.0 ; Hyperlipidemia E78.5 ; Essential hypertension I10 ; Chronic tension -type headache, intractable G44.221 ; Pulsatile tinnitus, bilateral H93.13 ; Obstructive sleep apnea on CPAP G47.33 and Major depressive disorder, recurrent episode, moderate F33.1 [place] [id number] [place] [address] 70050- 9505 16 May, 2016 Vitamin B12 deficiency E53.8 [place] [id number] [place] [address] 57242- 9125 May, [place] [id number] [place] [address] 31414- 4957 Apr, Vitamin B12 deficiency E53.8 [address] [address] 82312- 1640 Apr, [place] [address] 77927- 1209 Mar, Chronic tension-type headache, intractable G44.221 and Major depressive disorder, recurrent episode, moderate F33.1 [place] [id number] [place] [address] 28258- 2676 Mar, Vitamin B12 deficiency E53.8 [place] [id number] [place] [address] 54218- 2326 February, [place] [id number] [place] [address] 62346- 8494 February, Vitamin B12 deficiency E53.8 [place] [id number] [place] [address] 66464- 1085 February, [place] [id number] [place] [address] 97816- 3413 Jan, Dysuria R30.0 [place] [address] 29514- 8635 Jan, Essential hypertension I10 and Type 2 diabetes mellitus without complication E11.9 [place] [address] 37772- 2393 15 Jan, 2016 Chronic diarrhea K52.9 [facility] [address] [place] [address] 98786- 8083 13 Jan, 2016 [facility] [id number] [place] [address] 42169- 3635 12 Jan, 2016 Chronic diarrhea K52.9 [facility] [id number] [place] [address] 60558- 6191 12 Jan, 2016 [facility] [id number] [place] [address] 75446- 5492 12 Jan, 2016 Dysuria R30.0 [facility] [id number] [place] [address] 39957- 3790 07 Jan, 2016 Vitamin B12 deficiency E53.8 [facility] [id number] [place] [address] 69816- 5698 07 Jan, 2016 Dysuria R30.0 and Iron deficiency anemia due to chronic blood loss D50.0 [facility] [id number] [place] [address] 93905- 1245 05 Jan, 2016 Dysuria R30.0 [facility] [id number] [place] [address] 96610- 1842 04 Jan, 2016 [facility] [address] [place] [address] 78093- 0811 15 Dec, 2015 [facility] [id number] [place] [address] 68281- 0697 Dec, Iron deficiency anemia due to chronic blood loss D50.0 [facility] [address] [place] [address] 42157- 1287 10 Dec, 2015 Dysuria R30.0 ; Fatigue R53.83 ; Hyperlipidemia E78.5 and Diarrhea R19.7 [facility] [address] [place] [address] 30322- 2708 09 Dec, 2015 [facility] [id number] [place] [address] 47582- 5601 Dec, [facility] [address] [address]- 3545 10 Nov, 2015 Vitamin B12 deficiency E53.8 [facility] [address] [place] [address] 58076- 3134 Oct, Vitamin B12 deficiency E53.8 [facility] [address] [place] [address] 96312- 0956 Oct, [facility] [address] [place] [address] 10536 -1627 09 Oct, 2015 Headache R51 [facility] [id number] [place] [address] 13334- 8243 07 Oct, 2015 Essential hypertension I10 ; Type 2 diabetes mellitus without complication E11.9 ; Vitamin B12 deficiency E53.8 ; Acquired hypothyroidism E03.9 ; Iron deficiency anemia due to chronic blood loss D50.0 and Hyperlipidemia E78.5 [facility] [address] [place] [address] 97888- 1652 Sep, Essential hypertension I10 ; Vitamin B12 deficiency E53.8 ; Iron deficiency anemia due to chronic blood loss D50.0 ; Type 2 diabetes mellitus without complication E11.9 ; Hyperlipidemia E78.5 and Acquired hypothyroidism E03.9 [facility] [address], [place] [address]- 9784 08 Sep, 2015 [facility] [address] [place] [address] 39928- 5586 Sep, [facility] [address] [place] [address] 31847- 7890 05 Jul, 2015 [facility] [id number] [place] [address] 75101- 8416 29 Jun, 2015 [facility] [address] [place] [address] 89048- 6732 18 Jun, 2015 [facility] [address] [place] [address] 18823- 2094 Jun, Hyperlipidemia 272.4 ; Iron deficiency anemia 280.9 ; Hypothyroidism 244.9 ; Diabetes mellitus without mention of complication, type II or unspecified type, not stated as uncontrolled 250.00 and Hypertension 401.9 [facility] [address] [place] [address] 72968- 2468 Jun, [facility] [id number] [place] [address] 46542- 5542 Jun, [facility] [id number] [place] [address] 52323- 3590 May, Hyperlipidemia 272.4 [facility] [id number] [place] [address] 18773- 7884 May, [facility] [id number] [place] [address] 04119- 9061 May, [facility] [id number] [place] [address] 43175- 0157 Apr, Diabetes mellitus without mention of complication, type II or unspecified type, not stated as uncontrolled 250.00 ; Hypothyroidism 244.9 ; Hyperlipidemia 272.4 ; Pain in joint, lower leg 719.46 and RUQ pain 789.01 [place] [address] [place] [address] 78440- 4709 Mar, Sinusitis 473.9 [place] [id number] [place] [address] 88295- 6180 Mar, [facility] [id number] [place] [address] 50007- 5170 Mar, [facility] [id number] [place] [address] 51652- 6278 Mar, Hematochezia 578.1 [place] [id number] [place] [address] 29562- 1628 February, Sinusitis 473.9 [facility] [id number] [place] [address] 08115- 0375 February, [facility] [place] [facility] [address] [id number] [place] [address]- 8125 14 Jan, 2015 [facility] [place] [facility] [address] [id number] [place] [address]- 0732 Jan, [facility] [place] [facility] [address] [id number] [place] [address]- 6888 Dec, [facility] [place] [facility] [address] [id number] [place] [address]- 5215 Dec, [facility] [place] [facility] [address] [id number] [place] [address]- 9571 Dec, [facility] [place] [facility] [address] [id number] [place] [address]- 1599 Dec, [facility] [place] [facility] [address] [id number] [place] [address]- 0779 Dec, [facility] [place] [facility] [address] [id number] [place] [address]- 4147 Dec, [facility] [place] [facility] [address] [id number] [place] [address]- 0190 Dec, [facility] [place] [facility] [address] [id number] [place] [address]- 2209 Dec, [facility] [place] [facility] [address] [id number] [place] [address]- 2638 Dec, [facility] [place] [facility] [address] [id number], [place] [address]- 3917 Dec, [facility] [place] [facility] [address] [id number] [place] [address]- 6005 Dec, [facility] [place] [facility] [address] [id number] [place] [address]- 1266 Nov, [facility] [place] [facility] [address] [id number], [place] [address]- 5996 Nov, [facility] [place] [facility] [address] [id number], [place] [address]- 7639 Nov, [facility] [address] [id number] [place] [address]- 0089 Nov, [facility] [place] [facility] [address] [id number] [place] [address]- 2443 Oct, [facility] [place] [facility] [address] [facility] [id number] [place] [address]- 6576 Oct, [facility] [place] [facility] [address] [id number] [place] [address]- 4546 Oct, [facility] [place] [facility] [address] [id number] [place] [address]- 2855 Oct, [facility] [place] [facility] [address] [facility] [id number] [place] [address]- 5371 Oct, [facility] [address] [facility] [id number] [place] [address]- 8244 Oct, [facility] [place] [facility] [address] [facility] [id number] [place] [address]- 8416 Sep, [facility] [place] [facility] [address] [id number] [place] 9149 Sep, [facility] [place] [facility] [address] [facility] [id number] [place] 5481 Sep, [facility] [place] [facility] [address] [facility] [id number] [place] [address]- 2707 Sep, [facility] [place] [facility] [address] [facility] [id number] [place] [address]- 7620 Sep, [facility] [place] [facility] [address] [id number] [place] [address]- 4707 Sep, [facility] [place] [facility] [address] [facility] [id number] [place] [address]- 9226 Sep, [facility] [place] [facility] [address] [facility] [id number] [place] [address]- 2840 Aug, [facility] [place] [facility] [address] [id number] [place] [address]- 5323 Aug, [facility] [place] [facility] [address] [id number] [place] [address]- 3861 Aug, [facility] [place] [facility] [address] [id number] [place] [address]- 6676 Aug, [facility] [place] [facility] [address] [id number] [place] [address]- 4046 Aug, [facility] [place] [facility] [address] [id number] [place] [address] Aug, [facility] [place] [facility] [address] [id number] [place] [address] Aug, [facility] [place] [facility] [address] [id number] [place] [address] Aug, [facility] [place] [facility] [address] [id number] [place] [address] Aug, [facility] [place] [facility] [address] [id number] [place] [address] Aug, [facility] [place] [facility] [address] [id number] [place] [address] Aug, [facility] [place] [facility] [address] [id number] [place] [address] Aug, [facility] [place] [facility] [address] [id number] [place] [address] Aug, [facility] [place] [facility] [address] [id number] [place] [address] Aug, [facility] [place] [facility] [address] [id number] [place] [address] Jul, [facility] [place] [facility] [address] [id number] [place] [address] Jul, [facility] [place] [facility] [address] [id number] [place] [address] Jul, [facility] [place] [facility] [address] [id number] [place] [address] Jul, [facility] [place] [facility] [address] [id number] [place] [address]- [address] 24 Jun, 2013 [facility] [place] [facility] [address] [id number] [place] [address] 24 Jun, 2013 [facility] [place] [facility] [address] [id number] [place] [address]- [address] 23 Jun, 2013 [facility] [place] [facility] [address] [id number] [place] [address] 23 Jun, 2013 [facility] [place] [facility] [address] [id number] [place] [address] 19 Jun, 2013 [facility] [place] [facility] [address] [id number] [place] [address] Jun, 2013 [facility] [place] [facility] [address] [id number] [place] [address]- [address] 11 Jun, 2013 [facility] [place] [facility] [address] [id number] [place] [address]- [address] 11 Jun, 2013 [facility] [place] [facility] [address] [id number] [place] [address]- [address] 11 Jun, 2013 [facility] [place] [facility] [address] [id number], [place] [address] 11 Jun, 2013 [facility] [place] [facility] [address] [id number], [place] [address] 10 Jun, 2013 [facility] [place] [facility] [address] [id number] [place] [address]- [address] 10 Jun, 2013 [facility] [place] [facility] [address] [id number] [place] [address]- [address] 09 Jun, 2013 [facility] [place] [facility] [address] [id number] [place] [address]- [address] 09 Jun, 2013 [facility] [place] [facility] [address] [id number] [place] [address] May, [facility] [place] [facility] [address] [id number] [place] [address]- 4430 May, [facility] [place] [facility] [address] [id number] [place] [address] May, [facility] [place] [facility] [address] [id number] [place] [address] May, [facility] [place] [facility] [address] [id number] [place] [address] May, [facility] [place] [facility] [address] [id number] [place] [address] May, [facility] [place] [facility] [address] [id number] [place] [address] Apr, [facility] [place] [facility] [address] [id number] [place] [address] Apr, [facility] [place] [facility] [address] [id number] [place] [address] Apr, [facility] [place] [facility] [address] [id number] [place] [address] Apr, [facility] [place] [facility] [address] [id number] [place] [address] Apr, [facility] [place] [facility] [address] [id number] [place] [address] Apr, [facility] [place] [facility] [address] [id number] [place] [address] Apr, [facility] [place] [facility] [address] [id number] [place] [address] Apr, [facility] [place] [facility] [address] [id number] [place] [address] Apr, [facility] [place] [facility] [address] [id number] [place] [address] Apr, [facility] [address] [id number] [place] [address] Apr, [facility] [address] [id number] [place] [address] Mar, [facility] [address] [id number] [place] [address] Mar, [facility] [address] [id number] [place] [address] Mar, [facility] [address] [id number] [place] [address] Mar, [facility] [address] [id number] [place] [address] February, [facility] [address] [id number] [place] [address] February, [facility] [address] [id number] [place] [address] Jan, [facility] [address] [id number] [place] [address] Jan, [facility] [address] [place] [id number] Jan [facility] [address] [id number] [place] [address] Jan, [facility] [address] [id number] [place] [address] Jan, [facility] [address] [id number] [place] [address] 6[address] Jan, [facility] [address] [id number] [place] [address]- [address] Jan, [facility] [address] [id number] [place] [address] Jan, [facility] [address] [id number] [place] [address]- 94[address] Jan, [facility] [place] [facility] [address] [id number] [place] [address] Jan, [facility] [place] [facility] [address] [id number] [place] [address]- 0256 Jan, [facility] [place] [facility] [address] [id number] [place] [address]- [address]118 Jan, [facility] [place] [facility] [address] [id number] [place] [address]- 9868 Jan, [facility] [place] [facility] [address] [id number] [place] [address] 133[address] Jan, [facility] [place] [facility] [address] [id number] [place] [address]- [address]265 Jan, [facility] [place] [facility] [address] [id number] [place] [address]- 76[address] Jan, [facility] [place] [facility] [address] [id number] [place] [address]- 3[address] Jan, [facility] [place] [facility] [address] [id number] [place] [address]279 Dec, [facility] [place] [facility] [address] [id number] [place] [address]- [address] Dec, [facility] [place] [facility] [address] [id number] [place] [address]239 Dec, [facility] [place] [facility] [address] [id number], [place] [address] Dec, [facility] [place] [facility] [address] [id number] [place] [address] Dec, [facility] [place] [facility] [address] [id number] [place] [address]- 245[address] Dec, [facility] [place] [facility] [address] [id number] [place] [address] Dec, [facility] [place] [facility] [address] [id number] [place] [address]- [address] 28 Nov, 2013 [facility] [place] [facility] [address] [id number] [place] [address] Nov, [facility] [place] [facility] [address] [id number] [place] [address] 2546 Nov, [facility] [place] [facility] [address] [id number] [place] [address]- [address] Nov, [facility] [place] [facility] [address] [id number] [place] [address] 2546 Nov, [facility] [place] [facility] [address] [id number] [place] [address]- 1046 Nov, [facility] [place] [facility] [address] [facility] [id number] [place] [address] Nov, [facility] [place] [facility] [address] [facility] [id number] [place] [address] Oct, [facility] [place] [facility] [address] [id number] [place] [address] 8224 Oct, [facility] [place] [facility] [address] [facility] [id number] [place] [address]- 25[address] Sep, [facility] [place] [facility] [address] [facility] [id number] [place] [address]- [address] Sep, [facility] [place] [facility] [address] [facility] [id number] [place] [address] 2546 Sep, [facility] [place] [facility] [address] [id number] [place] [address] 2546 Sep, [facility] [place] [facility] [address] [id number] [place] [address] 2546 Sep, [facility] [place] [facility] [address] [facility] [id number] [place] [address] 2546 Sep, [facility] [place] [facility] [address] [facility] [id number] [place] [address]- 2542 Sep, [facility] [address] [id number] [address] Sep, [facility] [id number], [place] [address] Sep, [facility] [id number], [place] [address] Sep, [facility] [id number], [place] [address] Aug, [facility] [id number], [place] [address] Aug, [facility] [id number] [place] [address] Aug, [facility] [id number], [place] [address] Aug, [facility] [id number], [place] [address] Aug, [facility] [id number], [place] [address] Jul, [facility] [id number], [place] [address] Jul, [facility] [id number], [place] [address] Jul, [facility] [address] [id number], [place] [address] Jul, IMMUNIZATIONS No Known Immunizations SOCIAL HISTORY Never Assessed REASON FOR VISIT Requests return call PLAN OF CARE VITAL SIGNS MEDICATIONS Unknown [...]
[2018-03-22] MEDS ORDERED: CLINDAMYCIN 600 MG/50 ML IVPB 50 ML IV ONE ×2 (06:45→06:48)
[2018-03-22] MEDS ORDERED: FAMOTIDINE 20MG/2ML IV (PEPCID) IV ONE (06:45)
[2018-03-22] MEDS ORDERED: ONDANSETRON 4 MG/2 ML (SDV) Z0FRAN IV ONE (06:45)
--- OUTSIDE RECORDS SUMMARY | 2018-03-22 06:45 | XMS REPORT | Continuity of Care Document ---
Author Author [facility] Address Unknown Phone Unavailable Allergies Active [...] N/A 07/25/2013 Yes No Allergy Information Available [id number] Drug Allergy Unknown N/A 2013 Yes myocins myocins Unknown NAUSEA 12/02/2015 Yes tetanus diphtheria toxoids [id number] Drug Allergy Unknown HIVES 2015 Yes adhesive tape [id number] Drug Allergy Unknown HIVES 05/11/2017 Yes atorvastatin [id number] Drug Allergy Unknown NAUSEA 05/11/2017 Yes hydromorphone [id number] Drug Allergy Unknown hallucinations 05/11/2017 Yes Influenza Virus Vaccines [id number] Drug Allergy Unknown NAUSEA 05/11/2017 Yes morphine [id number] Drug Allergy Unknown hallcination 05/11/2017 Yes Penicillins [id number] Drug Allergy Unknown HIVES 05/11/2017 Yes simvastatin [id number] Drug Allergy Unknown NAUSEA 05/11/2017 Yes Sulfa (Sulfonamide Antibiotics) [id number] Drug Allergy Unknown HIVES 05/11 Yes tetanus and diphtheria toxoids [id number] Drug Allergy Unknown HIVES 2016 Yes adhesive tape [id number] Drug Allergy Moderate HIVES 05/18/2017 Yes Penicillins [id number] Drug Allergy Moderate HIVES 05/18/2017 Yes Sulfa (Sulfonamide Antibiotics) [id number] Drug Allergy Moderate HIVES 06/2017 Yes tetanus and diphtheria toxoids [id number] Drug Allergy Moderate HIVES 2016 Yes atorvastatin [id number] Drug Allergy Mild NAUSEA 05/18/2017 Yes hydromorphone [id number] Drug Allergy Mild hallucinations 05/18/2017 Yes Influenza Virus Vaccines [id number] Drug Allergy Mild NAUSEA 05/18/2017 Yes morphine [id number] Drug Allergy Mild hallcination 05/18/2017 Yes simvastatin [id number] Drug Allergy Mild NAUSEA 05/18/2017 Medications There is no data. Problems Date Dx Coded Attending Type Code Diagnosis Diagnosed By 07/25/2013 GUMARO KIM DO 250.00 DIABETES II CONTROLLED (UNCOMPLICATED) 07/25/2013 STEFANIE LECHUGA APRN 250.00 DIABETES II CONTROLLED (UNCOMPLICATED) 07/25/2013 VELMA JONES, WIL R 250.00 DIABETES II CONTROLLED (UNCOMPLICATED) 07/25/2013 VELMA JONES, WIL R 250.00 DIABETES II CONTROLLED (UNCOMPLICATED) 07/25/2013 VELMA JONES, WIL R 250.00 DIABETES II CONTROLLED (UNCOMPLICATED) 07/25/2013 VELMA JONES, WIL R 250.00 DIABETES II CONTROLLED (UNCOMPLICATED) 07/25/2013 VELMA JONES, WIL R 250.00 DIABETES II CONTROLLED (UNCOMPLICATED) 07/25/2013 VELMA JONES, WIL R 250.00 DIABETES II CONTROLLED (UNCOMPLICATED) 07/25/2013 CARA BUENROSTRO DDS 250.00 DIABETES II CONTROLLED (UNCOMPLICATED) 07/25/2013 GUMARO KIM DO 250.00 DIABETES II CONTROLLED (UNCOMPLICATED) 07/25/2013 VELMA JONES, WIL R 250.00 DIABETES II CONTROLLED (UNCOMPLICATED) 07/25/2013 VELMA JONES, WIL R 250.00 DIABETES II CONTROLLED (UNCOMPLICATED) 07/25/2013 PAOLO OCAMPO PSYD 250.00 DIABETES II CONTROLLED (UNCOMPLICATED) 07/25/2013 VELMA JONES, WIL R 250.00 DIABETES II CONTROLLED (UNCOMPLICATED) 07/25/2013 PAOLO OCAMPO PSYD 250.00 DIABETES II CONTROLLED (UNCOMPLICATED) 07/25/2013 VELMA JONES, WIL R 250.00 DIABETES II CONTROLLED (UNCOMPLICATED) 07/25/2013 VELMA JONES, WIL R 250.00 DIABETES II CONTROLLED (UNCOMPLICATED) 07/25/2013 VELMA JONES, WIL R 250.00 DIABETES II CONTROLLED (UNCOMPLICATED) 08/08/2013 LECHUGA WILDLIFE BIOSTATION RESEARCH ECOLOGIST, STEFANIE R 786.2 COUGH 08/08/2013 VELMA WILDLIFE BIOSTATION RESEARCH ECOLOGIST, WIL R 786.2 COUGH 08/08/2013 VELMA WILDLIFE BIOSTATION RESEARCH ECOLOGIST, WIL R 786.2 COUGH 08/08/2013 VELMA WILDLIFE BIOSTATION RESEARCH ECOLOGIST, WIL R 786.2 COUGH 08/08/2013 VELMA WILDLIFE BIOSTATION RESEARCH ECOLOGIST, WIL R 786.2 COUGH 08/08/2013 VELMA WILDLIFE BIOSTATION RESEARCH ECOLOGIST, WIL R 786.2 COUGH 08/08/2013 VELMA WILDLIFE BIOSTATION RESEARCH ECOLOGIST, WIL R 786.2 COUGH 08/08/2013 BUENROSTRO DDS, CARA 786.2 COUGH 08/08/2013 KIM DO, GUMARO K 786.2 COUGH 08/08/2013 VELMA WILDLIFE BIOSTATION RESEARCH ECOLOGIST, WIL R 786.2 COUGH 08/08/2013 VELMA WILDLIFE BIOSTATION RESEARCH ECOLOGIST, WIL R 786.2 COUGH 08/08/2013 PAOLO OCAMPO PSYD L 786.2 COUGH 08/08/2013 VELMA WILDLIFE BIOSTATION RESEARCH ECOLOGIST, WIL R 786.2 COUGH 08/08/2013 PAOLO OCAMPO PSYD L 786.2 COUGH 08/08/2013 VELMA WILDLIFE BIOSTATION RESEARCH ECOLOGIST, WIL R 786.2 COUGH 08/08/2013 VELMA WILDLIFE BIOSTATION RESEARCH ECOLOGIST, WIL R 786.2 COUGH 08/08/2013 VELMA WILDLIFE BIOSTATION RESEARCH ECOLOGIST, WIL R 786.2 COUGH 09/04/2013 VELMA WILDLIFE BIOSTATION RESEARCH ECOLOGIST, WIL R V78.0 ANEMIA SCREENING 09/04/2013 VELMA WILDLIFE BIOSTATION RESEARCH ECOLOGIST, WIL R V78.0 ANEMIA SCREENING 09/04/2013 VELMA WILDLIFE BIOSTATION RESEARCH ECOLOGIST, WIL R V78.0 ANEMIA SCREENING 09/04/2013 VELMA WILDLIFE BIOSTATION RESEARCH ECOLOGIST, WIL R V78.0 ANEMIA SCREENING 09/04/2013 VELMA WILDLIFE BIOSTATION RESEARCH ECOLOGIST, WIL R V78.0 ANEMIA SCREENING 09/04/2013 BUENROSTRO DDS, CARA V78.0 ANEMIA SCREENING 09/04/2013 KIM DO, GUMARO K V78.0 ANEMIA SCREENING 09/04/2013 VELMA WILDLIFE BIOSTATION RESEARCH ECOLOGIST, WIL R V78.0 ANEMIA SCREENING 09/04/2013 VELMA WILDLIFE BIOSTATION RESEARCH ECOLOGIST, WIL R V78.0 ANEMIA SCREENING 09/04/2013 PAOLO OCAMPO PSYD L V78.0 ANEMIA SCREENING 09/04/2013 VELMA WILDLIFE BIOSTATION RESEARCH ECOLOGIST, WIL R V78.0 ANEMIA SCREENING 09/04/2013 PAOLO OCAMPO PSYD V78.0 ANEMIA SCREENING 09/04/2013 VELMA WILDLIFE BIOSTATION RESEARCH ECOLOGIST, WIL R V78.0 ANEMIA SCREENING 09/04/2013 VELMA WILDLIFE BIOSTATION RESEARCH ECOLOGIST, WIL R V78.0 ANEMIA SCREENING 09/04/2013 VELMA WILDLIFE BIOSTATION RESEARCH ECOLOGIST, WIL R V78.0 ANEMIA SCREENING 01/17/2014 VELMA WILDLIFE BIOSTATION RESEARCH ECOLOGIST, WIL R 789.07 ABDOMINAL PAIN GENERALIZED 01/17/2014 VELMA WILDLIFE BIOSTATION RESEARCH ECOLOGIST, WIL R 789.07 ABDOMINAL PAIN GENERALIZED 01/17/2014 VELMA WILDLIFE BIOSTATION RESEARCH ECOLOGIST, WIL R 789.07 ABDOMINAL PAIN GENERALIZED 01/17/2014 CHITRA ACOSTAS, CARA 789.07 ABDOMINAL PAIN GENERALIZED 01/17/2014 KIM DO, GUMARO K 789.07 ABDOMINAL PAIN GENERALIZED 01/17/2014 VELMA WILDLIFE BIOSTATION RESEARCH ECOLOGIST, WIL R 789.07 ABDOMINAL PAIN GENERALIZED 01/17/2014 VELMA WILDLIFE BIOSTATION RESEARCH ECOLOGIST, WIL R 789.07 ABDOMINAL PAIN GENERALIZED 01/17/2014 PAOLO OCAMPO PSYD L 789.07 ABDOMINAL PAIN GENERALIZED 01/17/2014 VELMA WILDLIFE BIOSTATION RESEARCH ECOLOGIST, WIL R 789.07 ABDOMINAL PAIN GENERALIZED 01/17/2014 PAOLO OCAMPO PSYD L 789.07 ABDOMINAL PAIN GENERALIZED 01/17/2014 VELMA WILDLIFE BIOSTATION RESEARCH ECOLOGIST, WIL R 789.07 ABDOMINAL PAIN GENERALIZED 01/17/2014 VELMA WILDLIFE BIOSTATION RESEARCH ECOLOGIST, WIL R 789.07 ABDOMINAL PAIN GENERALIZED 01/17/2014 VELMA WILDLIFE BIOSTATION RESEARCH ECOLOGIST, WIL R 789.07 ABDOMINAL PAIN GENERALIZED 01/29/2014 VELMA WILDLIFE BIOSTATION RESEARCH ECOLOGIST, WIL R 789.00 ABDOMINAL PAIN UNSPECIFIED SITE 01/29/2014 VELMA WILDLIFE BIOSTATION RESEARCH ECOLOGIST, WIL R 789.00 ABDOMINAL PAIN UNSPECIFIED SITE 01/29/2014 CHITRA CHACON CARA 789.00 ABDOMINAL PAIN UNSPECIFIED SITE 01/29/2014 KIM DO, GUMARO K 789.00 ABDOMINAL PAIN UNSPECIFIED SITE 01/29/2014 VELMA WILDLIFE BIOSTATION RESEARCH ECOLOGIST, WIL R 789.00 ABDOMINAL PAIN UNSPECIFIED SITE 01/29/2014 VELMA WILDLIFE BIOSTATION RESEARCH ECOLOGIST, WIL R 789.00 ABDOMINAL PAIN UNSPECIFIED SITE 01/29/2014 PAOLO OCAMPO PSYD L 789.00 ABDOMINAL PAIN UNSPECIFIED SITE 01/29/2014 VELMA WILDLIFE BIOSTATION RESEARCH ECOLOGIST, WIL R 789.00 ABDOMINAL PAIN UNSPECIFIED SITE 01/29/2014 PAOLO OCAMPO PSYD L 789.00 ABDOMINAL PAIN UNSPECIFIED SITE 01/29/2014 VELMA WILDLIFE BIOSTATION RESEARCH ECOLOGIST, WIL R 789.00 ABDOMINAL PAIN UNSPECIFIED SITE 01/29/2014 VELMA WILDLIFE BIOSTATION RESEARCH ECOLOGIST, WIL R 789.00 ABDOMINAL PAIN UNSPECIFIED SITE 01/29/2014 VELMA WILDLIFE BIOSTATION RESEARCH ECOLOGIST, WIL R 789.00 ABDOMINAL PAIN UNSPECIFIED SITE 03/19/2014 VELMA SCHNEIDERN, WIL R 719.46 PAIN IN JOINT INVOLVING LOWER LEG 03/19/2014 VELMA SCHNEIDERN, WIL R 780.79 OTHER MALAISE AND FATIGUE 03/19/2014 BUENROSTRO DDSCARA 719.46 PAIN IN JOINT INVOLVING LOWER LEG 03/19/2014 BUENROSTRO DDS, CARA 780.79 OTHER MALAISE AND FATIGUE 03/19/2014 KIM DOMARGARITAA K 719.46 PAIN IN JOINT INVOLVING LOWER [...] IN JOINT INVOLVING LOWER LEG 03/19/2014 VELMA WILDLIFE BIOSTATION RESEARCH ECOLOGIST, WIL R 780.79 OTHER MALAISE AND FATIGUE 03/19/2014 VELMA WILDLIFE BIOSTATION RESEARCH ECOLOGIST, WIL R 719.46 PAIN IN JOINT INVOLVING LOWER LEG 03/19/2014 VELMA WILDLIFE BIOSTATION RESEARCH ECOLOGIST, WIL R 780.79 OTHER MALAISE AND FATIGUE 04/09/2014 BUENROSTRO DDS, CARA 787.91 DIARRHEA 04/09/2014 BUENROSTRO DDS, CARA 789.06 ABDOMINAL PAIN EPIGASTRIC 04/09/2014 KIM DO, GUMARO K 787.91 DIARRHEA 04/09/2014 KIM DO, GUMARO K 789.06 ABDOMINAL PAIN EPIGASTRIC 04/09/2014 VELMA WILDLIFE BIOSTATION RESEARCH ECOLOGIST, WIL R 787.91 DIARRHEA 04/09/2014 VELMA WILDLIFE BIOSTATION RESEARCH ECOLOGIST, WIL R 789.06 ABDOMINAL PAIN EPIGASTRIC 04/09/2014 VELMA WILDLIFE BIOSTATION RESEARCH ECOLOGIST, WIL R 787.91 DIARRHEA 04/09/2014 VELMA WILDLIFE BIOSTATION RESEARCH ECOLOGIST, WIL R 789.06 ABDOMINAL PAIN EPIGASTRIC 04/09/2014 PAOLO OCAMPO PSYD L 787.91 DIARRHEA 04/09/2014 PAOLO OCAMPO PSYD L 789.06 ABDOMINAL PAIN EPIGASTRIC 04/09/2014 VELMA WILDLIFE BIOSTATION RESEARCH ECOLOGIST, WIL R 787.91 DIARRHEA 04/09/2014 VELMA WILDLIFE BIOSTATION RESEARCH ECOLOGIST, WIL R 789.06 ABDOMINAL PAIN EPIGASTRIC 04/09/2014 PAOLO OCAMPO PSYD L 787.91 DIARRHEA 04/09/2014 PAOLO OCAMPO PSYD L 789.06 ABDOMINAL PAIN EPIGASTRIC 04/09/2014 VELMA WILDLIFE BIOSTATION RESEARCH ECOLOGIST, WIL R 787.91 DIARRHEA 04/09/2014 VELMA WILDLIFE BIOSTATION RESEARCH ECOLOGIST, WIL R 789.06 ABDOMINAL PAIN EPIGASTRIC 04/09/2014 VELMA WILDLIFE BIOSTATION RESEARCH ECOLOGIST, WIL R 787.91 DIARRHEA 04/09/2014 VELMA WILDLIFE BIOSTATION RESEARCH ECOLOGIST, WIL R 789.06 ABDOMINAL PAIN EPIGASTRIC 04/09/2014 VELMA WILDLIFE BIOSTATION RESEARCH ECOLOGIST, WIL R 787.91 DIARRHEA 04/09/2014 VELMA WILDLIFE BIOSTATION RESEARCH ECOLOGIST, WIL R 789.06 ABDOMINAL PAIN EPIGASTRIC 05/02/2014 KIM DO, GUMARO K 733.92 CHONDROMALACIA 05/02/2014 VELMA WILDLIFE BIOSTATION RESEARCH ECOLOGIST, WIL R 733.92 CHONDROMALACIA 05/02/2014 VELMA WILDLIFE BIOSTATION RESEARCH ECOLOGIST, WIL R 733.92 CHONDROMALACIA 05/02/2014 PAOLO OCAMPO PSYD ANN L 733.92 CHONDROMALACIA 05/02/2014 VELMA WILDLIFE BIOSTATION RESEARCH ECOLOGIST WIL R 733.92 CHONDROMALACIA 05/02/2014 PAOLO OCAMPO PSYD ANN L 733.92 CHONDROMALACIA 05/02/2014 VELMA WILDLIFE BIOSTATION RESEARCH ECOLOGIST, WIL R 733.92 CHONDROMALACIA 05/02/2014 VELMA WILDLIFE BIOSTATION RESEARCH ECOLOGIST, WIL R 733.92 CHONDROMALACIA 05/02/2014 VELMA WILDLIFE BIOSTATION RESEARCH ECOLOGIST, WIL R 733.92 CHONDROMALACIA 05/22/2014 VELMA WILDLIFE BIOSTATION RESEARCH ECOLOGIST, WIL R 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 05/22/2014 VELMA SCHNEIDERN, WIL R 272.1 HYPERTRIGLYCERIDEMIA 05/22/2014 VELMA SCHNEIDERN, WIL R 285.9 ANEMIA 05/22/2014 VELMA JONES, WIL R 788.30 URINARY INCONTINENCE UNSPECIFIED 05/22/2014 VELMA JONES, WIL R 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 05/22/2014 VELMA JONES WIL R 272.1 HYPERTRIGLYCERIDEMIA 05/22/2014 VELMA WILDLIFE BIOSTATION RESEARCH ECOLOGIST, WIL R 285.9 ANEMIA 05/22/2014 VELMA JONES, WIL R 788.30 URINARY INCONTINENCE UNSPECIFIED 05/22/2014 PAOLO OCAMPO PSYD ANN L 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 05/22/2014 PAOLO OCAMPO PSYD ANN L 272.1 HYPERTRIGLYCERIDEMIA 05/22/2014 PAOLO OCAMPO PSYD ANN L 285.9 ANEMIA 05/22/2014 PAOLO OCAMPO PSYD ANN L 788.30 URINARY INCONTINENCE UNSPECIFIED 05/22/2014 VELMA WILDLIFE BIOSTATION RESEARCH ECOLOGIST, WIL R 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 05/22/2014 VELMA JONES, WIL R 272.1 HYPERTRIGLYCERIDEMIA 05/22/2014 VELMA WILDLIFE BIOSTATION RESEARCH ECOLOGIST, WIL R 285.9 ANEMIA 05/22/2014 VELMA WILDLIFE BIOSTATION RESEARCH ECOLOGIST, WIL R 788.30 URINARY INCONTINENCE UNSPECIFIED 05/22/2014 PAOLO OCAMPO PSYD ANN L 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30 URINARY INCONTINENCE UNSPECIFIED 05/22/2014 VELMA WILDLIFE BIOSTATION RESEARCH ECOLOGIST, WIL R 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 05/22/2014 VELMA WILDLIFE BIOSTATION RESEARCH ECOLOGIST, WIL R 272.1 HYPERTRIGLYCERIDEMIA 05/22/2014 VELMA WILDLIFE BIOSTATION RESEARCH ECOLOGIST, WIL R 285.9 ANEMIA 05/22/2014 VELMA WILDLIFE BIOSTATION RESEARCH ECOLOGIST, WIL R 788.30 URINARY INCONTINENCE UNSPECIFIED 05/22/2014 VELMA WILDLIFE BIOSTATION RESEARCH ECOLOGIST, WIL R 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 05/22/2014 VELMA WILDLIFE BIOSTATION RESEARCH ECOLOGIST, WIL R 272.1 HYPERTRIGLYCERIDEMIA 05/22/2014 VELMA WILDLIFE BIOSTATION RESEARCH ECOLOGIST, WIL R 285.9 ANEMIA 05/22/2014 VELMA WILDLIFE BIOSTATION RESEARCH ECOLOGIST, WIL R 788.30 URINARY INCONTINENCE UNSPECIFIED 06/18/2014 VELMA WILDLIFE BIOSTATION RESEARCH ECOLOGIST, WIL R 300.00 ANXIETY UNSPEC 06/18/2014 PAOLO OCAMPO PSYD L 300.00 ANXIETY UNSPEC 06/18/2014 VELMA WILDLIFE BIOSTATION RESEARCH ECOLOGIST, WIL R 300.00 ANXIETY UNSPEC 06/18/2014 PAOLO OCAMPO PSYD L 300.00 ANXIETY UNSPEC 06/18/2014 VELMA WILDLIFE BIOSTATION RESEARCH ECOLOGIST, WIL R 300.00 ANXIETY UNSPEC 06/18/2014 VELMA JONES, WIL R 300.00 ANXIETY UNSPEC 06/18/2014 VELMA WILDLIFE BIOSTATION RESEARCH ECOLOGIST, WIL R 300.00 ANXIETY UNSPEC 06/28/2014 PAOLO OCAMPO PSYD L 296.32 MO DEPRESSIVE RECURRENT MODERATE 06/28/2014 VELMA JONES, WIL R 296.32 MO DEPRESSIVE RECURRENT MODERATE 06/28/2014 PAOLO OCAMPO PSYD L 296.32 MO DEPRESSIVE RECURRENT MODERATE 06/28/2014 VELMA WILDLIFE BIOSTATION RESEARCH ECOLOGIST, WIL R 296.32 MO DEPRESSIVE RECURRENT MODERATE 06/28/2014 VELMA WILDLIFE BIOSTATION RESEARCH ECOLOGIST, WIL R 296.32 MO DEPRESSIVE RECURRENT MODERATE 06/28/2014 VELMA WILDLIFE BIOSTATION RESEARCH ECOLOGIST, WIL R 296.32 MO DEPRESSIVE RECURRENT MODERATE 10/16/2014 VELMA, IWL R WILDLIFE BIOSTATION RESEARCH ECOLOGIST Ot 724.5 10/16/2014 VELMA, WIL R WILDLIFE BIOSTATION RESEARCH ECOLOGIST Ot 789.01 10/16/2014 VELMA, WIL R WILDLIFE BIOSTATION RESEARCH ECOLOGIST Ot 793.6 10/16/2014 VELMA, WIL R WILDLIFE BIOSTATION RESEARCH ECOLOGIST Ot 787.91 10/16/2014 VELMA, WIL R WILDLIFE BIOSTATION RESEARCH ECOLOGIST Ot 789.06 10/29/2014 VELMA, WIL R WILDLIFE BIOSTATION RESEARCH ECOLOGIST Ot 787.91 10/29/2014 VELMA, WIL R WILDLIFE BIOSTATION RESEARCH ECOLOGIST Ot 789.06 12/31/2014 VELMA, WIL R WILDLIFE BIOSTATION RESEARCH ECOLOGIST Ot 724.5 12/31/2014 VELMA, WIL R WILDLIFE BIOSTATION RESEARCH ECOLOGIST Ot 789.01 12/31/2014 VELMA, WIL R WILDLIFE BIOSTATION RESEARCH ECOLOGIST Ot 793.6 12/31/2014 VELMA, WIL R WILDLIFE BIOSTATION RESEARCH ECOLOGIST Ot 787.91 12/31/2014 VELMA, WIL R WILDLIFE BIOSTATION RESEARCH ECOLOGIST Ot 789.06 04/18/2015 VELMA, WIL R WILDLIFE BIOSTATION RESEARCH ECOLOGIST Ot 724.5 04/18/2015 VELMA, WIL R WILDLIFE BIOSTATION RESEARCH ECOLOGIST Ot 789.01 04/18/2015 VELMA, WIL R WILDLIFE BIOSTATION RESEARCH ECOLOGIST Ot 793.6 04/18/2015 VELMA, WIL R WILDLIFE BIOSTATION RESEARCH ECOLOGIST Ot 787.91 04/18/2015 VELMA, WIL R WILDLIFE BIOSTATION RESEARCH ECOLOGIST Ot 789.06 04/18/2015 JASON SOMERS, ULI Dennis Ot 553.1 05/09/2015 JASON SOMERS, ULI Dennis Ot 564.00 08/21/2015 JASON SOMERS, ULI Dennis Ot 564.00 08/21/2015 JASON SOMERS, ULI Dennis Ot 553.1 09/02/2015 JASON SOMERS, ULI Dennis Ot 553.1 09/02/2015 JASON SOMERS, ULI Dennis Ot 564.00 12/10/2015 ADEN SOMERS, RONY Sykes Ot E05.90 THYROTOXICOSIS, UNSP WITHOUT THYROTOXIC 12/10/2015 ADEN SOMERS, RONY Sykes Ot E11.9 TYPE 2 DIABETES MELLITUS WITHOUT COMPLIC 12/10/2015 RONY SAMANIEGO MD Ot E78.0 PURE HYPERCHOLESTEROLEMIA 12/10/2015 RONY SAMANIEGO MD Ot G56.02 CARPAL TUNNEL SYNDROME, LEFT UPPER LIMB 12/10/2015 RONY SAMANIEGO MD Ot I10 ESSENTIAL (PRIMARY) HYPERTENSION 12/10/2015 RONY SAMANIEGO MD Ot Z79.899 OTHER MANAGER FAST FOOD (CURRENT) DRUG THERAPY 01/25/2016 MAYTE DICKERSON WILDLIFE BIOSTATION RESEARCH ECOLOGIST Ot S32.492A OTH FRACTURE OF LEFT ACETABULUM, INIT FO 01/25/2016 MAYTE DICKERSON WILDLIFE BIOSTATION RESEARCH ECOLOGIST Ot X58.XXXA EXPOSURE TO OTHER SPECIFIED FACTORS, INI 01/25/2016 MAYTE DICKERSON WILDLIFE BIOSTATION RESEARCH ECOLOGIST Ot Y92.[address] IN [facility]IVATE 01/25/2016 MAYTE DICKERSON APRN Ot Y93.01 ACTIVITY, WALKING, MARCHING AND HIKING 01/25/2016 MAYTE DICKERSON WILDLIFE BIOSTATION RESEARCH ECOLOGIST Ot Y99.8 OTHER EXTERNAL CAUSE STATUS 01/27/2016 MAYTE DICKERSON WILDLIFE BIOSTATION RESEARCH ECOLOGIST Ot S32.492A OTH FRACTURE OF LEFT ACETABULUM, INIT FO 01/27/2016 MAYTE DICKERSON APRN Ot X58.XXXA EXPOSURE TO OTHER SPECIFIED FACTORS, INI 01/27/2016 MAYTE DICKERSON WILDLIFE BIOSTATION RESEARCH ECOLOGIST Ot Y92.[address] IN [facility] NON[facility] (PRIVATE 01/27/2016 MAYTE DICKERSON WILDLIFE BIOSTATION RESEARCH ECOLOGIST Ot Y93.01 ACTIVITY, WALKING, MARCHING AND HIKING 01/27/2016 MAYTE DICKERSON WILDLIFE BIOSTATION RESEARCH ECOLOGIST Ot Y99.8 OTHER EXTERNAL CAUSE STATUS 06/29/2016 WIL CARREON WILDLIFE BIOSTATION RESEARCH ECOLOGIST Ot 724.5 BACKACHE NOS 06/29/2016 WIL CARREON WILDLIFE BIOSTATION RESEARCH ECOLOGIST Ot 789.01 ABDOMINAL PAIN, RIGHT UPPER QUADRANT 06/29/2016 WIL CARREON WILDLIFE BIOSTATION RESEARCH ECOLOGIST Ot 793.6 NOSP (ABN) FINDINGS ON RADIOLOGICAL OT 06/29/2016 WIL CARREON WILDLIFE BIOSTATION RESEARCH ECOLOGIST Ot 787.91 DIARRHEA 06/29/2016 WIL CARREON WILDLIFE BIOSTATION RESEARCH ECOLOGIST Ot 789.06 ABDOMINAL PAIN, EPIGASTRIC 06/29/2016 JASON SOMERS, ULI Dennis Ot 553.1 UMBILICAL HERNIA 06/29/2016 JASON SOMERS, ULI Dennis Ot 564.00 UNSPEC CONSTIPATION 06/29/2016 RONY SAMANIEGO MD Ot G56.02 CARPAL TUNNEL SYNDROME, LEFT UPPER LIMB 06/29/2016 RONY SAMANIEGO MD Ot Z01.818 ENCOUNTER FOR OTHER PREPROCEDURAL EXAMIN 06/29/2016 RONY SAMANIEGO MD Ot Z11.2 ENCOUNTER FOR SCREENING FOR OTHER BACTER 07/01/2016 ESPINOZA SOMERS, BRENTON Reyez Ot G44.221 CHRONIC TENSION-TYPE HEADACHE, INTRACTAB 07/16/2016 WIL CARREON WILDLIFE BIOSTATION RESEARCH ECOLOGIST Ot 724.5 BACKACHE NOS 07/16/2016 WIL CARREON WILDLIFE BIOSTATION RESEARCH ECOLOGIST Ot 789.01 ABDOMINAL PAIN, RIGHT UPPER QUADRANT 07/16/2016 WIL CARREON R WILDLIFE BIOSTATION RESEARCH ECOLOGIST Ot 793.6 NOSP (ABN) FINDINGS ON RADIOLOGICAL OT 07/16/2016 WIL CARREON R WILDLIFE BIOSTATION RESEARCH ECOLOGIST Ot 787.91 DIARRHEA 07/16/2016 WIL CARREON WILDLIFE BIOSTATION RESEARCH ECOLOGIST Ot 789.06 ABDOMINAL PAIN, EPIGASTRIC 07/16/2016 ULI GOMEZ MD Ot 553.1 UMBILICAL HERNIA 07/16/2016 ULI GOMEZ MD Ot 564.00 UNSPEC CONSTIPATION 07/16/2016 RONY SAMANIEGO MD Ot G56.02 CARPAL TUNNEL SYNDROME, LEFT UPPER LIMB 07/16/2016 RONY SAMANIEGO MD Ot Z01.818 ENCOUNTER FOR OTHER PREPROCEDURAL EXAMIN 07/16/2016 RONY SAMANIEGO MD Ot Z11.2 ENCOUNTER FOR SCREENING FOR OTHER BACTER 07/16/2016 BRENTON DORAN MD Ot G44.221 CHRONIC TENSION-TYPE HEADACHE, INTRACTAB 07/21/2016 WIL CARREON WILDLIFE BIOSTATION RESEARCH ECOLOGIST Ot 724.5 BACKACHE NOS 07/21/2016 WIL CARREON WILDLIFE BIOSTATION RESEARCH ECOLOGIST Ot 789.01 ABDOMINAL PAIN, RIGHT UPPER QUADRANT 07/21/2016 WIL CARREON WILDLIFE BIOSTATION RESEARCH ECOLOGIST Ot 793.6 NOSP (ABN) FINDINGS ON RADIOLOGICAL OT 07/21/2016 WIL CARREON R WILDLIFE BIOSTATION RESEARCH ECOLOGIST Ot 787.91 DIARRHEA 07/21/2016 WIL CARREON WILDLIFE BIOSTATION RESEARCH ECOLOGIST Ot 789.06 ABDOMINAL PAIN, EPIGASTRIC 07/21/2016 ULI GOMEZ MD Ot 553.1 UMBILICAL HERNIA 07/21/2016 ULI GOMEZ MD Ot 564.00 UNSPEC CONSTIPATION 07/21/2016 RONY SAMANIEGO [...] LEVELS OF TRANSAMNS LA 08/08/2016 WIL CARREON WILDLIFE BIOSTATION RESEARCH ECOLOGIST Ot 724.5 BACKACHE NOS 08/08/2016 WIL CARREON WILDLIFE BIOSTATION RESEARCH ECOLOGIST Ot 789.01 ABDOMINAL PAIN, RIGHT UPPER QUADRANT 08/08/2016 WIL CARREON WILDLIFE BIOSTATION RESEARCH ECOLOGIST Ot 793.6 NOSP (ABN) FINDINGS ON RADIOLOGICAL OT 08/08/2016 WIL CARREON WILDLIFE BIOSTATION RESEARCH ECOLOGIST Ot 787.91 DIARRHEA 08/08/2016 WIL CARREON WILDLIFE BIOSTATION RESEARCH ECOLOGIST Ot 789.06 ABDOMINAL PAIN, EPIGASTRIC 08/08/2016 ULI [...] OF LEVELS OF TRANSAMNS LA 08/08/2016 BRENTON DROAN MD Ot M54.6 PAIN IN THORACIC SPINE [...] STENOSIS OF RIGHT CAROTID 09/09/2016 ARTHUR LOVING WILDLIFE BIOSTATION RESEARCH ECOLOGIST Ot G47.33 OBSTRUCTIVE SLEEP APNEA (ADULT) (PEDIATR 09/10/2016 ARTHUR LOVING WILDLIFE BIOSTATION RESEARCH ECOLOGIST Ot G47.33 OBSTRUCTIVE SLEEP APNEA (ADULT) (PEDIATR 09/29/2016 UMBERTO BRIDGESEN L Ot E11.9 TYPE 2 DIABETES MELLITUS WITHOUT COMPLIC 09/29/2016 UMBERTO BRIDGESEN L Ot K59.00 CONSTIPATION, UNSPECIFIED 09/29/2016 UMBERTO BRIDGESEN L Ot Z79.84 MANAGER FAST FOOD (CURRENT) USE OF ORAL HYPOGLYC 09/29/2016 UMBERTO BRIDGESEN L Ot Z79.899 OTHER DETENTION (CURRENT) DRUG THERAPY 09/30/2016 JENNIFER BRIDGES Ot E11.9 TYPE 2 DIABETES MELLITUS WITHOUT COMPLIC 09/30/2016 UMBERTO BRIDGESEN L Ot K59.00 CONSTIPATION, UNSPECIFIED 09/30/2016 UMBERTO BRIDGESEN L Ot Z79.84 MANAGER FAST FOOD (CURRENT) USE OF ORAL HYPOGLYC 09/30/2016 UMBERTO BRIDGESEN L Ot Z79.899 OTHER MANAGER FAST FOOD (CURRENT) DRUG THERAPY 10/01/2016 UMBERTO BRIDGESEN Mary Ot E11.9 TYPE 2 DIABETES MELLITUS WITHOUT COMPLIC 10/01/2016 UMBERTO BRIDGESEN L Ot K59.00 CONSTIPATION, UNSPECIFIED 10/01/2016 UMBERTO BRIDGESEN L Ot Z79.84 MANAGER FAST FOOD (CURRENT) USE OF ORAL HYPOGLYC 10/01/2016 UMBERTO BRIDGESEN L Ot Z79.899 OTHER MANAGER FAST FOOD (CURRENT) DRUG THERAPY 11/06/2016 ARTHUR LOVING WILDLIFE BIOSTATION RESEARCH ECOLOGIST Ot G47.30 SLEEP APNEA, UNSPECIFIED 11/08/2016 ARTHUR LOVING WILDLIFE BIOSTATION RESEARCH ECOLOGIST Ot G47.30 SLEEP APNEA, UNSPECIFIED 12/02/2016 GINO SOMERS, HUMBERTO N Ot E11.9 TYPE 2 DIABETES MELLITUS WITHOUT COMPLIC 12/02/2016 GINO SOMERS, HUMBERTO N Ot E53.8 DEFICIENCY OF OTHER SPECIFIED B GROUP 12/02/2016 GINO SOMERS, HUMBERTO N Ot E78.5 HYPERLIPIDEMIA, UNSPECIFIED 12/02/2016 GINO SOMERS, HUMBERTO N Ot I10 ESSENTIAL (PRIMARY) HYPERTENSION 12/02/2016 HUMBERTO [...] SMALL AND LG INT 12/08/2016 WIL CARREON WILDLIFE BIOSTATION RESEARCH ECOLOGIST Ot 724.5 BACKACHE NOS 12/08/2016 WIL CARREON WILDLIFE BIOSTATION RESEARCH ECOLOGIST Ot 789.01 ABDOMINAL PAIN, RIGHT UPPER QUADRANT 12/08/2016 WIL CARREON WILDLIFE BIOSTATION RESEARCH ECOLOGIST Ot 793.6 NOSP (ABN) FINDINGS ON RADIOLOGICAL OT 12/08/2016 WIL CARREON WILDLIFE BIOSTATION RESEARCH ECOLOGIST Ot 787.91 DIARRHEA 12/08/2016 WIL CARREON WILDLIFE BIOSTATION RESEARCH ECOLOGIST Ot 789.06 ABDOMINAL PAIN, EPIGASTRIC 12/08/2016 JASON SOMERS, ULI Dennis Ot 553.1 UMBILICAL HERNIA 12/08/2016 ULI GOMEZ [...] SUPERMARKET, STORE OR MARKET PLACE 12/12/2016 TURNER RUIZ MD Ot Y99.8 OTHER EXTERNAL CAUSE STATUS 12/12/2016 TURNER RUIZ MD Ot Z79.84 DETENTION (CURRENT) USE OF ORAL HYPOGLYC 12/12/2016 TURNER RUIZ MD Ot Z79.899 OTHER DETENTION (CURRENT) DRUG THERAPY 12/12/2016 TURNER RUIZ MD Ot Z96.651 PRESENCE OF RIGHT ARTIFICIAL KNEE JOINT 12/14/2016 TURNER RUIZ MD Ot E11.9 TYPE 2 DIABETES MELLITUS WITHOUT COMPLIC 12/14/2016 TURNER RUIZ MD Ot I10 ESSENTIAL (PRIMARY) HYPERTENSION 12/14/2016 TURNER RUIZ MD Ot S59.901A UNSPECIFIED INJURY OF RIGHT ELBOW, INITI 12/14/2016 TURNER RUIZ MD Ot S69.91XA UNSP INJURY OF RIGHT WRIST, HAND AND FIN 12/14/2016 TURNER RUIZ MD Ot S89.91XA UNSPECIFIED INJURY OF RIGHT LOWER LEG, I 12/14/2016 TURNER RUIZ MD Ot W19.XXXA UNSPECIFIED FALL, INITIAL ENCOUNTER 12/14/2016 TURNER RUIZ MD Ot Y92.512 SUPERMARKET, STORE OR MARKET PLACE 12/14/2016 TURNER RUIZ MD Ot Y99.8 OTHER EXTERNAL CAUSE STATUS 12/14/2016 TURNER RUIZ MD Ot Z79.84 MANAGER FAST FOOD (CURRENT) USE OF ORAL HYPOGLYC 12/14/2016 TURNER RUIZ MD Ot Z79.899 OTHER MANAGER FAST FOOD (CURRENT) DRUG THERAPY 12/14/2016 TURNER RUIZ MD Ot Z96.651 PRESENCE OF RIGHT ARTIFICIAL KNEE JOINT 12/18/2016 TURNER RUIZ MD Ot E11.9 TYPE 2 DIABETES MELLITUS WITHOUT COMPLIC 12/18/2016 TURNER RUIZ MD Ot I10 ESSENTIAL (PRIMARY) HYPERTENSION 12/18/2016 TURNER [...] STATUS 12/18/2016 TURNER RUIZ MD Ot Z79.84 MANAGER FAST FOOD (CURRENT) USE OF ORAL HYPOGLYC 12/18/2016 TURNER RUIZ MD Ot Z79.899 OTHER DETENTION (CURRENT) DRUG THERAPY 12/18/2016 TURNER RUIZ MD [...] DISEASE OF BOTH SMALL AND LG INT 04/04/2017 MAYTE DICKERSON WILDLIFE BIOSTATION RESEARCH ECOLOGIST Ot E11.9 TYPE 2 DIABETES MELLITUS WITHOUT COMPLIC 04/04/2017 MAYTE DICKERSON APRN Ot E78.00 PURE HYPERCHOLESTEROLEMIA, UNSPECIFIED 04/04/2017 MAYTE DICKERSON APRN Ot F32.9 MAJOR DEPRESSIVE DISORDER, SINGLE EPISOD 04/04/2017 MAYTE DICKERSON APRN Ot F41.9 ANXIETY DISORDER, UNSPECIFIED 04/04/2017 MAYTE DICKERSON APRN Ot I10 ESSENTIAL (PRIMARY) HYPERTENSION 04/04/2017 MAYTE DICKERSON APRN Ot M79.601 PAIN IN RIGHT ARM 04/04/2017 MAYTE DICKERSON APRN Ot S50.01XA CONTUSION OF RIGHT ELBOW, INITIAL ENCOUN 04/04/2017 AMYTE DICKERSON APRN Ot W01.0XXA FALL SAME LEV FROM SLIP/TRIP W/O STRIKE 04/04/2017 MAYTE DICKERSON APRN Ot Z79.84 DETENTION (CURRENT) USE OF ORAL HYPOGLYC 04/04/2017 MAYTE DICKERSON APRN Ot Z88.0 ALLERGY STATUS TO PENICILLIN 04/04/2017 MAYTE DICKERSON APRN Ot Z88.1 ALLERGY STATUS TO OTHER ANTIBIOTIC AGENT 04/04/2017 MAYTE DICKERSON APRN Ot Z88.2 ALLERGY STATUS TO SULFONAMIDES STATUS 04/04/2017 MAYTE DICKERSON APRN Ot Z88.6 ALLERGY STATUS TO ANALGESIC AGENT STATUS 04/04/2017 MAYTE DICKERSON APRN Ot Z88.7 ALLERGY STATUS TO SERUM AND VACCINE STAT 04/04/2017 MAYTE DICKERSON APRN Ot Z88.9 ALLERGY STATUS TO UNSP DRUG/MEDS/BIOL MERRITT 04/04/2017 MAYTE DICKERSON APRN Ot Z91.048 OTHER NONMEDICINAL SUBSTANCE ALLERGY STA 05/02/2017 ESPINOZA SOMERS, BRENTON Reyez Ot M25.511 PAIN IN RIGHT SHOULDER 05/04/2017 BRENTON DORAN MD Ot M25.511 PAIN IN RIGHT SHOULDER 05/11/2017 RONY SAMANIEGO MD Ot M75.101 UNSP ROTATR-CUFF TEAR/RUPTR OF RIGHT IVIS 05/11/2017 RONY SAMANIEGO MD Ot Z01.818 ENCOUNTER FOR OTHER PREPROCEDURAL EXAMIN 05/11/2017 RONY SAMANIEGO MD Ot Z11.2 ENCOUNTER FOR SCREENING FOR OTHER BACTER 05/18/2017 RONY SAMANIEGO MD Ot E05.90 THYROTOXICOSIS, UNSP WITHOUT THYROTOXIC 05/18/2017 RONY SAMANIEGO MD Ot E11.9 TYPE 2 DIABETES MELLITUS WITHOUT COMPLIC 05/18/2017 RONY SAMANIEGO MD Ot E78.00 PURE HYPERCHOLESTEROLEMIA, UNSPECIFIED 05/18/2017 RONY SAMANIEGO MD Ot I10 ESSENTIAL (PRIMARY) HYPERTENSION 05/18/2017 RONY SAMANIEGO MD Ot S43.431A SUPERIOR GLENOID LABRUM LESION OF RIGHT 05/18/2017 RONY SAMANIEGO MD Ot S46.011A STRAIN OF [facility] [place] [facility] [place]TEND THE ROTATOR CUFF OF 05/18/2017 RONY SAMANIEGO MD Ot W19.XXXA UNSPECIFIED FALL, INITIAL ENCOUNTER 05/18/2017 RONY SAMANIEGO MD Ot Y99.8 OTHER EXTERNAL CAUSE STATUS 05/18/2017 RONY SAMANIEGO MD, Ot Z79.899 OTHER MANAGER FAST FOOD (CURRENT) DRUG THERAPY 05/24/2017 RONY SAMANIEGO MD Ot E05.90 THYROTOXICOSIS, UNSP WITHOUT THYROTOXIC 05/24/2017 RONY SAMANIEGO MD Ot E11.9 TYPE 2 DIABETES MELLITUS WITHOUT COMPLIC 05/24/2017 RONY SAMANIEGO MD Ot E78.00 PURE HYPERCHOLESTEROLEMIA, UNSPECIFIED 05/24/2017 RONY SAMANIEGO MD, Ot I10 ESSENTIAL (PRIMARY) HYPERTENSION 05/24/2017 RONY SAMANIEGO MD, Ot S43.431A SUPERIOR GLENOID LABRUM LESION OF RIGHT 05/24/2017 RONY SAMANIEGO MD, Ot S46.011A STRAIN OF [facility] [place] [facility] [place]TEND THE ROTATOR CUFF OF 05/24/2017 RONY SAMANIEGO MD Ot W19.XXXA UNSPECIFIED FALL, INITIAL ENCOUNTER 05/24/2017 RONY SAMANIEGO MD Ot Y99.8 OTHER EXTERNAL CAUSE STATUS 05/24/2017 RONY SAMANIEGO MD, Ot Z79.899 OTHER DETENTION (CURRENT) DRUG THERAPY 05/31/2017 WIL CARREON WILDLIFE BIOSTATION RESEARCH ECOLOGIST Ot 724.5 BACKACHE NOS 05/31/2017 WIL CARREON WILDLIFE BIOSTATION RESEARCH ECOLOGIST Ot 789.01 ABDOMINAL PAIN, RIGHT UPPER QUADRANT 05/31/2017 WIL CARREON WILDLIFE BIOSTATION RESEARCH ECOLOGIST Ot 793.6 NOSP (ABN) FINDINGS ON RADIOLOGICAL OT 05/31/2017 WIL CARREON WILDLIFE BIOSTATION RESEARCH ECOLOGIST Ot 787.91 DIARRHEA 05/31/2017 WIL CARREON WILDLIFE BIOSTATION RESEARCH ECOLOGIST Ot 789.06 ABDOMINAL PAIN, EPIGASTRIC 05/31/2017 JASON SOMERS, ULI Dennis Ot 553.1 UMBILICAL HERNIA 05/31/2017 JASON SOMERS, ULI Dennis Ot 564.00 UNSPEC CONSTIPATION 05/31/2017 RONY SAMANIEGO MD Ot G56.02 CARPAL TUNNEL SYNDROME, LEFT UPPER LIMB 05/31/2017 RONY SAMANIEGO MD Ot Z01.818 ENCOUNTER FOR OTHER PREPROCEDURAL EXAMIN 05/31/2017 RONY SAMANIEGO MD Ot Z11.2 ENCOUNTER FOR SCREENING FOR OTHER BACTER 05/31/2017 BRENTON DORAN MD Ot G44.221 CHRONIC TENSION-TYPE HEADACHE, INTRACTAB 05/31/2017 RONY REYES MD Ot H93.A9 PULSATILE TINNITUS, UNSPECIFIED EAR 05/31/2017 RONY REYES MD Ot 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 05/31/2017 BRENTON DORAN MD Ot K76.0 FATTY (CHANGE OF) LIVER, NOT ELSEWHERE C 05/31/2017 BRENTON DORAN MD Ot R74.0 NONSPEC ELEV OF LEVELS OF TRANSAMNS LA 05/31/2017 BRENTON DORAN MD Ot M54.6 PAIN IN THORACIC SPINE 05/31/2017 BRENTON DORAN MD Ot R31.9 HEMATURIA, UNSPECIFIED 05/31/2017 BRENTON DORAN MD Ot R74.0 NONSPEC ELEV OF LEVELS OF TRANSAMNS LA 05/31/2017 HUMBERTO CHRISTIAN MD Ot E11.9 TYPE 2 DIABETES MELLITUS WITHOUT COMPLIC 05/31/2017 HUMBERTO CHRISTIAN MD Ot E53.8 DEFICIENCY OF OTHER SPECIFIED B GROUP 05/31/2017 HUMBERTO CHRISTIAN MD Ot E78.5 HYPERLIPIDEMIA, UNSPECIFIED 05/31/2017 HUMBERTO CHRISTIAN MD Ot I10 ESSENTIAL (PRIMARY) HYPERTENSION 05/31/2017 HUMBERTO CHRISTIAN MD Ot 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 05/31/2017 BRENTON DORAN MD Ot M25.511 PAIN IN RIGHT SHOULDER 06/01/2017 WIL CARREON WILDLIFE BIOSTATION RESEARCH ECOLOGIST Ot 724.5 BACKACHE NOS 06/01/2017 WIL CARREON WILDLIFE BIOSTATION RESEARCH ECOLOGIST Ot 789.01 ABDOMINAL PAIN, RIGHT UPPER QUADRANT 06/01/2017 WIL CARREON WILDLIFE BIOSTATION RESEARCH ECOLOGIST Ot 793.6 NOSP (ABN) FINDINGS ON RADIOLOGICAL OT 06/01/2017 WIL CARREON WILDLIFE BIOSTATION RESEARCH ECOLOGIST Ot 787.91 DIARRHEA 06/01/2017 WIL CARREON WILDLIFE BIOSTATION RESEARCH ECOLOGIST Ot 789.06 ABDOMINAL PAIN, EPIGASTRIC 06/01/2017 JASON SOMERS, ULI Dennis Ot 553.1 UMBILICAL HERNIA 06/01/2017 JASON SOMERS, ULI Dennis Ot 564.00 UNSPEC CONSTIPATION 06/01/2017 RONY SAMANIEGO MD Ot G56.02 CARPAL TUNNEL SYNDROME, LEFT UPPER LIMB 06/01/2017 RONY SAMANIEGO MD Ot Z01.818 ENCOUNTER FOR OTHER PREPROCEDURAL EXAMIN 06/01/2017 RONY SAMANIEGO MD Ot Z11.2 ENCOUNTER FOR SCREENING FOR OTHER BACTER 06/01/2017 BRENTON DORAN MD Ot G44.221 CHRONIC TENSION-TYPE HEADACHE, INTRACTAB 06/01/2017 RONY REYES MD Ot H93.A9 PULSATILE TINNITUS, UNSPECIFIED EAR 06/01/2017 RONY REYES MD Ot 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 06/01/2017 BRENTON DORAN MD Ot K76.0 FATTY (CHANGE OF) LIVER, NOT ELSEWHERE C 06/01/2017 BRENTON DORAN MD Ot R74.0 NONSPEC ELEV OF LEVELS OF TRANSAMNS LA 06/01/2017 BRENTON DORAN MD Ot M54.6 PAIN IN THORACIC SPINE 06/01/2017 BRENTON DORAN MD Ot R31.9 HEMATURIA, UNSPECIFIED 06/01/2017 BRENTON DORAN MD Ot R74.0 NONSPEC ELEV OF LEVELS OF TRANSAMNS LA 06/01/2017 HUMBERTO CHRISTIAN MD Ot E11.9 TYPE 2 DIABETES MELLITUS WITHOUT COMPLIC 06/01/2017 HUMBERTO CHRISTIAN MD Ot E53.8 DEFICIENCY OF OTHER SPECIFIED B GROUP 06/01/2017 HUMBERTO CHRISTIAN MD Ot E78.5 HYPERLIPIDEMIA, UNSPECIFIED 06/01/2017 HUMBERTO CHRISTIAN MD Ot I10 ESSENTIAL (PRIMARY) HYPERTENSION 06/01/2017 HUMBERTO CHRISTIAN MD Ot 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 06/01/2017 BRENTON DORAN MD Ot M25.511 PAIN IN RIGHT SHOULDER 06/23/2017 BRENTON DORAN MD Ot R07.89 OTHER CHEST PAIN 08/12/2017 BRENTON DORAN MD Ot Z12.31 ENCNTR SCREEN MAMMOGRAM FOR MALIGNANT NE 08/12/2017 BRENTON DORAN MD Ot Z12.31 ENCNTR SCREEN MAMMOGRAM FOR MALIGNANT NE 08/16/2017 WIL CARREON WILDLIFE BIOSTATION RESEARCH ECOLOGIST Ot 724.5 BACKACHE NOS 08/16/2017 WIL CARREON WILDLIFE BIOSTATION RESEARCH ECOLOGIST Ot 789.01 ABDOMINAL PAIN, RIGHT UPPER QUADRANT 08/16/2017 WIL CARREON WILDLIFE BIOSTATION RESEARCH ECOLOGIST Ot 793.6 NOSP (ABN) FINDINGS ON RADIOLOGICAL OT 08/16/2017 WIL CARREON WILDLIFE BIOSTATION RESEARCH ECOLOGIST Ot 787.91 DIARRHEA 08/16/2017 WIL CARREON WILDLIFE BIOSTATION RESEARCH ECOLOGIST Ot 789.06 ABDOMINAL PAIN, EPIGASTRIC 08/16/2017 JASON SOMERS, ULI Dennis Ot 553.1 UMBILICAL HERNIA 08/16/2017 ULI GOMEZ MD Ot 564.00 UNSPEC CONSTIPATION 08/16/2017 RONY SAMANIEGO MD Ot G56.02 CARPAL TUNNEL SYNDROME, LEFT UPPER LIMB 08/16/2017 RONY SAMANIEGO MD Ot Z01.818 ENCOUNTER FOR OTHER PREPROCEDURAL EXAMIN 08/16/2017 RONY SAMANIEGO MD Ot Z11.2 ENCOUNTER FOR SCREENING FOR OTHER BACTER 08/16/2017 BRENTON DORAN MD Ot G44.221 CHRONIC TENSION-TYPE HEADACHE, INTRACTAB 08/16/2017 RONY REYES MD Ot H93.A9 PULSATILE TINNITUS, UNSPECIFIED EAR 08/16/2017 RONY REYES MD Ot 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 08/16/2017 BRENTON DORAN MD Ot K76.0 FATTY (CHANGE OF) LIVER, NOT ELSEWHERE C 08/16/2017 BRENTON DORAN MD Ot R74.0 NONSPEC ELEV OF LEVELS OF TRANSAMNS LA 08/16/2017 BRENTON DORAN MD Ot M54.6 PAIN IN THORACIC SPINE 08/16/2017 BRENTON DORAN MD Ot R31.9 HEMATURIA, UNSPECIFIED 08/16/2017 BRENTON DORAN MD Ot R74.0 NONSPEC ELEV OF LEVELS OF TRANSAMNS LA 08/16/2017 HUMBERTO CHRISTIAN MD Ot E11.9 TYPE 2 DIABETES MELLITUS WITHOUT COMPLIC 08/16/2017 UHMBERTO CHRISTIAN MD Ot E53.8 DEFICIENCY OF OTHER SPECIFIED B GROUP 08/16/2017 HUMBERTO CHRISTIAN MD Ot E78.5 HYPERLIPIDEMIA, UNSPECIFIED 08/16/2017 HUMBERTO CHRISTIAN MD Ot I10 ESSENTIAL (PRIMARY) HYPERTENSION 08/16/2017 HUMBERTO CHRISTIAN MD Ot 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 08/16/2017 BRENTON DORAN MD Ot R07.89 OTHER CHEST PAIN 08/16/2017 BRENTON DORAN MD Ot M25.511 PAIN IN RIGHT SHOULDER 08/16/2017 BRENTON DORAN MD Ot Z12.31 ENCNTR SCREEN MAMMOGRAM FOR MALIGNANT NE 08/17/2017 BRENTON DORAN MD, Ot Z12.31 ENCNTR SCREEN MAMMOGRAM FOR MALIGNANT NE 08/22/2017 BRENTON DORAN MD Ot Z12.31 ENCNTR SCREEN MAMMOGRAM FOR MALIGNANT NE 09/07/2017 BRENTON DORAN MD, Ot Z12.31 ENCNTR SCREEN MAMMOGRAM FOR MALIGNANT NE 09/13/2017 BRENTON DORAN MD Ot R07.89 OTHER CHEST PAIN Procedures Code Description [place] [address] ROUTINE VENIPUNCTURE 08/24/2013 97685 CBC 08/24/2013 [id number] GFR CALC (RESULT ONLY) 08/24/2013 16622 CMP 08/24/2013 29906 LIPID PANEL 08/24/2013 66261 TSH 08/24/2013 98580 OCCULT BLOOD (FECES) 09/04/2013 66874 ROUTINE VENIPUNCTURE 12/06/2013 37445 CBC 12/07/2013 92357 A1C (IN-HOUSE) 01/17/2014 11774 MICRO ALBUMIN-IN HOUSE 01/17/[address] ABDOMEN W/ AND W/O CONTRAST 01/30/2014 88094 CMP 01/30/2014 99449 LIPASE 01/30/2014 18826 CBC 01/30/2014 19852 H PYLORI (RML) 02/01/2014 66423 ROUTINE VENIPUNCTURE 03/19/2014 47803 CBC 03/19/2014 26745 XRAY KNEE RIGHT 1 OR 2 VIEWS 05/02/2014 74445 ROUTINE VENIPUNCTURE 05/22/2014 39672 A1C (IN-HOUSE) 05/22/2014 04894 UA LONG DIP 05/22/2014 30727 CBC 05/22/2014 00079 MICROALBUMIN 05/22/2014 30769 TSH 05/22/2014 94270 ROUTINE VENIPUNCTURE 06/18/2014 42302 CBC 06/18/2014 33069 LIPASE 06/18/2014 25879 PSYCH DIAGNOSTIC EVALUATION 06/28/2014 2000F BLOOD PRESSURE CHECK 07/03/2014 11678 PSYTX PT&/FAMILY 45 MINUTES 08/15/2014 20199 ROUTINE VENIPUNCTURE 08/22/2014 53926 A1C (IN-HOUSE) 08/22/2014 88110 CBC 08/22/2014 [id number] GFR CALC (RESULT ONLY) 08/22/2014 83481 CMP 08/22/2014 77007 LIPASE 08/22/2014 65320 CULTURE STOOL 08/26/2014 39722 CLOSTRIDIUM (C-DIFF) 08/26/[address] ABDOMEN & PELVIS W/ & W/ O CONTRAST 08/30/2014 Results Test Result Range CBC With Differential/Platelet - 07/23/16 10:00 WBC 5.4 x10E3/uL 3.4-10.8 RBC 4.53 x10E6/uL 3.77-5.28 Hemoglobin 13.6 g/dL 11.1-15.9 Hematocrit 41.2 % 34.0-46.6 MCV 91 fL 79-97 MCH 30.0 pg 26.6-33.0 MCHC 33.0 g/dL 31.5-35.7 RDW 13.0 % 12.3-15.4 Platelets 190 x10E3/uL 150-379 Neutrophils 63 % Lymphs 24 % Monocytes 7 % Eos 5 % Basos 1 % Neutrophils (Absolute) 3.4 x10E3/uL 1.4-7.0 Lymphs (Absolute) 1.3 x10E3/uL 0.7-3.1 Monocytes(Absolute) 0.4 x10E3/uL 0.1-0.9 Eos (Absolute) 0.3 x10E3/uL 0.0-0.4 Baso (Absolute) 0.0 x10E3/uL 0.0-0.2 Immature Granulocytes 0 % Immature Grans (Abs) 0.0 x10E3/uL 0.0-0.1 Comp. Metabolic Panel (14) - 07/23/16 10:00 Glucose, Serum 161 mg/dL 65-99 BUN 10 mg/dL 8-27 Creatinine, Serum 0.66 mg/dL 0.57-1.00 eGFR If NonAfricn Am 95 mL/min/1.73 >59 eGFR If Africn Am 109 mL/min/1.73 >59 BUN/Creatinine Ratio 15 11-26 Sodium, Serum 138 mmol/L 134-144 Potassium, Serum 4.3 mmol/L 3.5-5.2 Chloride, Serum 100 mmol/L 97-108 Carbon Dioxide, Total 24 mmol/L 18-29 Calcium, Serum 9.5 mg/dL 8.7-10.3 Protein, Total, Serum 6.4 g/dL 6.0-8.5 Albumin, Serum 4.0 g/dL 3.6-4.8 Globulin, Total 2.4 g/dL 1.5-4.5 A/G Ratio 1.7 1.1-2.5 Bilirubin, Total 0.6 mg/dL 0.0-1.2 Alkaline Phosphatase, S 89 IU/L 39-117 AST (SGOT) 65 IU/L 0-40 ALT (SGPT) 42 IU/L 0-32 Lipid Panel - 07/23/16 10:00 Cholesterol, Total 263 mg/dL 100-199 Triglycerides 217 mg/dL 0-149 HDL Cholesterol 42 mg/dL >39 VLDL Cholesterol Onesimo 43 mg/dL 5-40 LDL Cholesterol Calc 178 mg/dL 0-99 TSH - 07/23/16 10:00 TSH 1.690 uIU/mL 0.450-4.500 Sedimentation Rate-Westergren - 07/23/16 10:00 Sedimentation Rate-Westergren 40 mm/hr 0-40 Comprehensive metabolic panel - 07/30/16 13:07 Serum or plasma sodium measurement (moles/volume) 140 mmol/L 135-145 Serum or plasma potassium measurement (moles/volume) 4.2 mmol/L 3.6-5.0 Serum or plasma chloride measurement (moles/volume) 107 mmol/L 98-107 Carbon dioxide 25 mmol/L -32 Serum or plasma anion gap determination (moles/volume) 8 mmol/L 5-14 Serum or plasma urea nitrogen measurement (mass/volume) 10 mg/dL 7-18 Serum or plasma creatinine measurement (mass/volume) 0.75 mg/dL 0.60-1.30 Serum or plasma urea nitrogen/creatinine mass [...] Hepatitis A virus IgM antibody assay Non-Reactive Non- Reactive Hepatitis B virus core IgM antibody assay Non-Reactive Non-Reactive Serum hepatitis C virus antibody detection Non-Reactive Non-Reactive Automated blood complete blood count (hemogram) panel - 12/01/16 17:17 Blood leukocytes automated count (number/volume) 6.7 10*3/uL 4.3-11.0 Blood erythrocytes automated count (number/volume) 4.23 10*6/uL 4.35-5.85 Venous blood hemoglobin measurement (mass/volume) 13.0 [...] Automated blood platelet mean volume measurement 9.2 [foz_us] 7.4-10.4 Comprehensive metabolic panel - 12/01/16 17:17 Serum or plasma sodium measurement (moles/volume) 139 mmol/L 135-145 Serum or plasma potassium measurement (moles/volume) 4.0 mmol/L 3.6-5.0 Serum or plasma chloride measurement (moles/volume) 109 mmol/L 98-107 Carbon dioxide 21 mmol/L 21-32 Serum or plasma anion gap determination (moles/volume) 9 mmol/L 5-14 Serum or plasma urea nitrogen measurement (mass/volume) 15 mg/dL 7-18 Serum or plasma creatinine measurement (mass/volume) 0.75 mg/dL 0.60-1.30 Serum or plasma urea nitrogen/creatinine mass [...] Serum hepatitis B virus core antibody detection Non-Reactive NRG Body fluid hepatitis B virus surface [...] or plasma iron measurement (mass/volume) 77 % 35- 180 Total iron binding capacity and transferrin saturation measurement 24 % 15-50 Iron binding capacity [mass/volume] in serum or plasma 325 % 280-380 UIBC (unsaturated iron binding capacity) 248 % 55-450 Serum or plasma ferritin measurement (mass/volume) 86.0 % 15.0-150.0 Cyanocobalamin measurement - 12/01/16 17:17 Vitamin B12 499 pg/mL 200-1000 * Reference lab test name - 12/01/16 17:17 * Reference lab test results TPMT LEVEL [facility] Lipid Panel - 12/16/16 10:21 Cholesterol, Total 185 mg/dL 100-199 Triglycerides 136 mg/dL 0-149 HDL Cholesterol 39 mg/dL >39 VLDL Cholesterol Onesimo 27 mg/dL 5-40 LDL Cholesterol Calc 119 mg/dL 0-99 Vitamin B12 - 12/16/16 10:21 Vitamin B12 439 pg/mL 211-946 CBC With Differential/Platelet - 01/03/17 16:07 WBC 7.3 x10E3/uL 3.4-10.8 RBC 4.25 x10E6/uL 3.77-5.28 Hemoglobin 12.9 g/dL 11.1-15.9 Hematocrit 38.6 % 34.0-46.6 MCV 91 fL 79-97 MCH 30.4 pg 26.6-33.0 MCHC 33.4 g/dL 31.5-35.7 RDW 13.3 % 12.3-15.4 Platelets 194 x10E3/uL 150-379 Neutrophils 66 % Lymphs 23 % Monocytes 7 % Eos 3 % Basos 0 % Neutrophils (Absolute) 4.9 x10E3/uL 1.4-7.0 Lymphs (Absolute) 1.7 x10E3/uL 0.7-3.1 Monocytes(Absolute) 0.5 x10E3/uL 0.1-0.9 Eos (Absolute) 0.2 x10E3/uL 0.0-0.4 Baso (Absolute) 0.0 x10E3/uL 0.0-0.2 Immature Granulocytes 1 % Immature Grans (Abs) 0.0 x10E3/uL 0.0-0.1 Comp. Metabolic Panel (14) - 01/03/17 16:07 Glucose, Serum 215 mg/dL 65-99 BUN 19 mg/dL 8-27 Creatinine, Serum 0.78 mg/dL 0.57-1.00 eGFR If NonAfricn Am 81 mL/min/1.73 >59 eGFR If Africn Am 94 mL/min/1.73 >59 BUN/Creatinine Ratio 24 11-26 Sodium, Serum 135 mmol/L 134-144 Potassium, Serum 4.0 mmol/L 3.5-5.2 Chloride, Serum 103 mmol/L 96-106 Carbon Dioxide, Total 25 mmol/L 18-29 Calcium, Serum 9.7 mg/dL 8.7-10.3 Protein, Total, Serum 5.7 g/dL 6.0-8.5 Albumin, Serum 3.7 g/dL 3.6-4.8 Globulin, Total 2.0 g/dL 1.5-4.5 A/G Ratio 1.9 1.2-2.2 Bilirubin, Total 0.4 mg/dL 0.0-1.2 Alkaline Phosphatase, S 74 IU/L 39-117 AST (SGOT) 60 IU/L 0-40 ALT (SGPT) 48 IU/L 0-32 CBC With Differential/Platelet - 02/03/17 11:44 WBC 9.7 x10E3/uL 3.4-10.8 RBC 4.11 x10E6/uL 3.77-5.28 Hemoglobin 12.5 g/dL 11.1-15.9 Hematocrit 39.9 % 34.0-46.6 MCV 97 fL 79-97 MCH 30.4 pg 26.6-33.0 MCHC 31.3 g/dL 31.5-35.7 RDW 13.8 % 12.3-15.4 Platelets 195 x10E3/uL 150-379 Neutrophils 85 % Lymphs 12 % Monocytes 3 % Eos 0 % Basos 0 % Neutrophils (Absolute) 8.1 x10E3/uL 1.4-7.0 Lymphs (Absolute) 1.2 x10E3/uL 0.7-3.1 Monocytes(Absolute) 0.3 x10E3/uL 0.1-0.9 Eos (Absolute) 0.0 x10E3/uL 0.0-0.4 Baso (Absolute) 0.0 x10E3/uL 0.0-0.2 Immature Granulocytes 0 % Immature Grans (Abs) 0.0 x10E3/uL 0.0-0.1 Comp. Metabolic Panel (14) - 02/03/17 11:44 Glucose, Serum 325 mg/dL 65-99 BUN 20 mg/dL 8-27 Creatinine, Serum 0.74 mg/dL 0.57-1.00 eGFR If NonAfricn Am 86 mL/min/1.73 >59 eGFR If Africn Am 100 mL/min/1.73 >59 BUN/Creatinine Ratio 27 12-28 Sodium, Serum 139 mmol/L 134-144 Potassium, Serum 4.7 mmol/L 3.5-5.2 Chloride, Serum 100 mmol/L 96-106 Carbon Dioxide, Total 22 mmol/L 18-29 Calcium, Serum 9.9 mg/dL 8.7-10.3 Protein, Total, Serum 6.0 g/dL 6.0-8.5 Albumin, Serum 3.9 g/dL 3.6-4.8 Globulin, Total 2.1 g/dL 1.5-4.5 A/G Ratio 1.9 1.2-2.2 Bilirubin, Total 0.4 mg/dL 0.0-1.2 Alkaline Phosphatase, S 65 IU/L 39-117 AST (SGOT) 42 IU/L 0-40 ALT (SGPT) 43 IU/L 0-32 CBC+Platelet+Hem Review - 03/15/17 09:34 WBC 5.0 x10E3/uL 3.4-10.8 RBC 4.25 x10E6/uL 3.77-5.28 Hemoglobin 13.0 g/dL 11.1-15.9 Hematocrit 39.6 % 34.0-46.6 MCV 93 fL 79-97 MCH 30.6 pg 26.6-33.0 MCHC 32.8 g/dL 31.5-35.7 RDW 13.7 % 12.3-15.4 Platelets 200 x10E3/uL 150-379 Neutrophils 64 % Lymphs 28 % Monocytes 5 % Eos 3 % Basos 0 % Neutrophils Absolute 3.2 X10E3/uL 1.4-7.0 Lymphs (Absolute) 1.4 X10E3/uL 0.7-3.1 Monocytes(Absolute) 0.3 X10E3/uL 0.1-0.9 Eos (Absolute Value) 0.1 X10E3/uL 0.0-0.4 Baso(Absolute) 0.0 X10E3/uL 0.0-0.2 Differential Comment Note: RBC Comment Note: Normal Platelet Comment Note: Adequate Comp. Metabolic Panel (14) - 03/15/17 09:34 Glucose, Serum 245 mg/dL 65-99 BUN 10 mg/dL 8-27 Creatinine, Serum 0.68 mg/dL 0.57-1.00 eGFR If NonAfricn Am 93 mL/min/1.73 >59 eGFR If Africn Am 108 mL/min/1.73 >59 BUN/Creatinine Ratio 15 12-28 Sodium, Serum 143 mmol/L 134-144 Potassium, Serum 4.2 mmol/L 3.5-5.2 Chloride, Serum 106 mmol/L 96-106 Carbon Dioxide, Total 23 mmol/L 18-29 Calcium, Serum 9.2 mg/dL 8.7-10.3 Protein, Total, Serum 6.1 g/dL 6.0-8.5 Albumin, Serum 3.8 g/dL 3.6-4.8 Globulin, Total 2.3 g/dL 1.5-4.5 A/G Ratio 1.7 1.2-2.2 Bilirubin, Total 0.5 mg/dL 0.0-1.2 Alkaline Phosphatase, S 74 IU/L 39-117 AST (SGOT) 39 IU/L 0-40 ALT (SGPT) 24 IU/L 0-32 CBC With Differential/Platelet - 04/14/17 10:14 WBC 6.0 x10E3/uL 3.4-10.8 RBC 4.36 x10E6/uL 3.77-5.28 Hemoglobin 13.5 g/dL 11.1-15.9 Hematocrit 40.9 % 34.0-46.6 MCV 94 fL 79-97 MCH 31.0 pg 26.6-33.0 MCHC 33.0 g/dL 31.5-35.7 RDW 13.9 % 12.3-15.4 Platelets 187 x10E3/uL 150-379 Neutrophils 70 % Lymphs 20 % Monocytes 6 % Eos 3 % Basos 1 % Neutrophils (Absolute) 4.2 x10E3/uL 1.4-7.0 Lymphs (Absolute) 1.2 x10E3/uL 0.7-3.1 Monocytes(Absolute) 0.4 x10E3/uL 0.1-0.9 Eos (Absolute) 0.2 x10E3/uL 0.0-0.4 Baso (Absolute) 0.0 x10E3/uL 0.0-0.2 Immature Granulocytes 0 % Immature Grans (Abs) 0.0 x10E3/uL 0.0-0.1 Comp. Metabolic Panel (14) - 04/14/17 10:14 Glucose, Serum 145 mg/dL 65-99 BUN 9 mg/dL 8-27 Creatinine, Serum 0.59 mg/dL 0.57-1.00 eGFR If NonAfricn Am 98 mL/min/1.73 >59 eGFR If Africn Am 113 mL/min/1.73 >59 BUN/Creatinine Ratio 15 12-28 Sodium, Serum 142 mmol/L 134-144 Potassium, Serum 4.3 mmol/L 3.5-5.2 Chloride, Serum 101 mmol/L 96-106 Carbon Dioxide, Total 22 mmol/L 18-29 Calcium, Serum 9.9 mg/dL 8.7-10.3 Protein, Total, Serum 6.5 g/dL 6.0-8.5 Albumin, Serum 4.0 g/dL 3.6-4.8 Globulin, Total 2.5 g/dL 1.5-4.5 A/G Ratio 1.6 1.2-2.2 Bilirubin, Total 0.5 mg/dL 0.0-1.2 Alkaline Phosphatase, S 63 IU/L 39-117 AST (SGOT) 36 IU/L 0-40 ALT (SGPT) 20 IU/L 0-32 Methicillin resistant Staphylococcus aureus (MRSA) screening culture - 11:40 Methicillin resistant Staphylococcus aureus (MRSA) screening culture NEG NRG Capillary blood glucose measurement by glucometer (mass/volume) - 05/18/17 08: 12 Capillary blood glucose measurement by glucometer (mass/volume) 119 mg/dL 70-110 Capillary blood glucose measurement by glucometer (mass/volume) - 05/18/17 10: 57 Capillary blood glucose measurement by glucometer (mass/volume) 142 mg/dL 70-110 CBC - 06/14/17 12:12 WBC 5.1 x10E3/uL 3.4-10.8 RBC 4.02 x10E6/uL 3.77-5.28 Hemoglobin 12.5 g/dL 11.1-15.9 Hematocrit 38.1 % 34.0-46.6 MCV 95 fL 79-97 MCH 31.1 pg 26.6-33.0 MCHC 32.8 g/dL 31.5-35.7 RDW 14.3 % 12.3-15.4 Platelets 157 x10E3/uL 150-379 Neutrophils 67 % NRG Lymphs 23 % NRG Monocytes 7 % NRG Eos 3 % NRG Basos 0 % NRG Neutrophils (Absolute) 3.4 x10E3/uL 1.4-7.0 Lymphs (Absolute) 1.2 x10E3/uL 0.7-3.1 Monocytes(Absolute) 0.4 x10E3/uL 0.1-0.9 Eos (Absolute) 0.2 x10E3/uL 0.0-0.4 Baso (Absolute) 0.0 x10E3/uL 0.0-0.2 Immature Granulocytes 0 % NRG Immature Grans (Abs) 0.0 x10E3/uL 0.0-0.1 CMP - 06/14/17 12:12 Glucose, Serum 163 mg/dL 65-99 BUN 14 mg/dL 8-27 Creatinine, Serum 0.57 mg/dL 0.57-1.00 eGFR If NonAfricn Am 99 mL/min/1.73 >59 eGFR If Africn Am 114 mL/min/1.73 >59 BUN/Creatinine Ratio 25 12-28 Sodium, Serum 143 mmol/L 134-144 Potassium, Serum 4.1 mmol/L 3.5-5.2 Chloride, Serum 103 mmol/L 96-106 Carbon Dioxide, Total 23 mmol/L 18-29 Calcium, Serum 9.6 mg/dL 8.7-10.3 Protein, Total, Serum 6.2 g/dL 6.0-8.5 Albumin, Serum 3.9 g/dL 3.6-4.8 Globulin, Total 2.3 g/dL 1.5-4.5 A/G Ratio 1.7 1.2-2.2 Bilirubin, Total 0.6 mg/dL 0.0-1.2 Alkaline Phosphatase, S 69 IU/L 39-117 AST (SGOT) 25 IU/L 0-40 ALT (SGPT) 15 IU/L 0-32 CBC With Differential/Platelet - 06/14/17 12:12 WBC 5.1 x10E3/uL 3.4-10.8 RBC 4.02 x10E6/uL 3.77-5.28 Hemoglobin 12.5 g/dL 11.1-15.9 Hematocrit 38.1 % 34.0-46.6 MCV 95 fL 79-97 MCH 31.1 pg 26.6-33.0 MCHC 32.8 g/dL 31.5-35.7 RDW 14.3 % 12.3-15.4 Platelets 157 x10E3/uL 150-379 Neutrophils 67 % Lymphs 23 % Monocytes 7 % Eos 3 % Basos 0 % Neutrophils (Absolute) 3.4 x10E3/uL 1.4-7.0 Lymphs (Absolute) 1.2 x10E3/uL 0.7-3.1 Monocytes(Absolute) 0.4 x10E3/uL 0.1-0.9 Eos (Absolute) 0.2 x10E3/uL 0.0-0.4 Baso (Absolute) 0.0 x10E3/uL 0.0-0.2 Immature Granulocytes 0 % Immature Grans (Abs) 0.0 x10E3/uL 0.0-0.1 Comp. Metabolic Panel (14) - 06/14/17 12:12 Glucose, Serum 163 mg/dL 65-99 BUN 14 mg/dL 8-27 Creatinine, Serum 0.57 mg/dL 0.57-1.00 eGFR If NonAfricn Am 99 mL/min/1.73 >59 eGFR If Africn Am 114 mL/min/1.73 >59 BUN/Creatinine Ratio 25 12-28 Sodium, Serum 143 mmol/L 134-144 Potassium, Serum 4.1 mmol/L 3.5-5.2 Chloride, Serum 103 mmol/L 96-106 Carbon Dioxide, Total 23 mmol/L 18-29 Calcium, Serum 9.6 mg/dL 8.7-10.3 Protein, Total, Serum 6.2 g/dL 6.0-8.5 Albumin, Serum 3.9 g/dL 3.6-4.8 Globulin, Total 2.3 g/dL 1.5-4.5 A/G Ratio 1.7 1.2-2.2 Bilirubin, Total 0.6 mg/dL 0.0-1.2 Alkaline Phosphatase, S 69 IU/L 39-117 AST (SGOT) 25 IU/L 0-40 ALT (SGPT) 15 IU/L 0-32 TSH - 08/11/17 10:30 TSH 1.47 mIU/L 0.40-4.50 TSH - 01/17/18 08:57 TSH 1.81 mIU/L 0.40-4.50 VITAMIN D, 25-H - 01/17/18 08:57 VITAMIN D,25-OH,TOTAL,IA 17 ng/mL 30-100 DIFFERENTIAL, MANUAL - 01/17/18 08:57 ABSOLUTE NEUTROPHILS 2857 cells/uL [id number] ABSOLUTE MONOCYTES 510 cells/uL 200-950 ABSOLUTE EOSINOPHILS 54 cells/uL 15-500 ABSOLUTE BASOPHILS 49 cells/uL 0-200 NEUTROPHILS 58.3 % NRG LYMPHOCYTES 27.1 % NRG MONOCYTES 10.4 % NRG EOSINOPHILS 1.1 % NRG BASOPHILS 1.0 % NRG ABSOLUTE BAND NEUTROPHILS 103 cells/uL 0-750 ABSOLUTE LYMPHOCYTES 1328 cells/uL 850-3900 BAND NEUTROPHILS 2.1 % NRG PLATELET ESTIMATION DECREASED ADEQUATE NOTE NRG Encounters ACCT No. Visit Date/Time Discharge Status Pt. Type Provider Facility Loc./Unit Complaint [id number] 11/26/2014 08:32:00 11/26/2014 23:59:59 CLS Outpatient WIL CARREON APRN [id number] 09/10/2014 13:42:00 09/10/2014 23:59:59 CLS Outpatient WIL CARREON APRN [id number] 08/26/2014 08:15:00 08/26/2014 23:59:59 CLS Outpatient WIL CARREON APRN R [id number] 08/15/2014 07:58:00 08/15/2014 23:59:59 CLS Outpatient PAOLO OCAMPO PSYD [id number] 07/03/2014 14:25:00 07/03/2014 23:59:59 CLS Outpatient WIL CARREON APRN R [id number] 06/28/2014 13:44:00 06/28/2014 23:59:59 CLS Outpatient PAOLO OCAMPO PSYD [id number] 06/18/2014 10:47:00 06/18/2014 23:59:59 CLS Outpatient WIL CARREON APRN R [id number] 05/22/2014 11:18:00 05/22/2014 23:59:59 CLS Outpatient WIL CARREON APRN R [id number] 05/02/2014 12:46:00 05/02/2014 23:59:59 CLS Outpatient GUMARO KIM DO [id number] 03/19/2014 14:16:00 03/19/2014 23:59:59 CLS Outpatient WIL CARREON APRN R [id number] 03/18/2014 00:00:00 03/18/2014 23:59:59 CLS Outpatient CARA BUENROSTRO DDS [id number] 01/29/2014 14:31:00 01/29/2014 23:59:59 CLS Outpatient VELMA JONES WIL Cornejo [id number] 01/17/2014 15:12:00 01/17/2014 23:59:59 CLS Outpatient VELMA JONES WIL Cornejo [id number] 12/06/2013 16:56:00 12/06/2013 23:59:59 CLS Outpatient VELMA JONES WIL R [id number] 09/04/2013 11:13:00 09/04/2013 23:59:59 CLS Outpatient VELMA JONESWIL [id number] 08/24/2013 09:58:00 08/24/2013 23:59:59 CLS Outpatient VELMA JONES WIL Cornejo [id number] 08/08/2013 12:20:00 08/08/2013 23:59:59 CLS Outpatient STEFANIE LECHUGA APRN [id number] 07/25/2013 15:26:00 07/25/2013 23:59:59 CLS Outpatient GUMARO KIM DO [id number] 02/04/2017 08:42:00 Document Registration [id number] 12/17/2016 08:41:00 Document Registration [id number] 01/04/2017 08:35:00 Document Registration [id number] 03/16/2017 16:08:00 Document Registration [id number] 04/15/2017 08:36:00 Document Registration [id number] 02/01/2018 15:20:00 02/01/2018 23:59:59 CLS Outpatient BRENTON DORAN MD [facility] [id number] 01/17/2018 09:00:00 Document Registration [id number] 08/11/2017 09:40:00 Document Registration [id number] 06/14/2017 12:00:00 Document Registration [id number] 08/16/2017 09:15:00 08/16/2017 23:59:59 CLS Outpatient BRENTON DORAN MD [facility] RAD Z12.31 SCREENING [id number] 06/01/2017 10:14:00 06/01/2017 23:59:59 CLS Outpatient BRENTON DORAN MD [facility] CARD R07.89 OTHER CHEST PAIN [id number] 05/18/2017 08:07:00 05/18/2017 13:40:00 DIS Outpatient RONY SAMANIEGO MD [facility] SDC ROTATOR CUFF TEAR [id number] 05/11/2017 05:35:00 05/11/2017 11:53:00 DIS Outpatient RONY SAMANIEGO MD [facility] PREOP ROTATOR CUFF TEAR [id number] 04/25/2017 13:19:00 04/25/2017 23:59:59 CLS Outpatient BRENTON ODRAN MD [facility] RAD ACUTE PAIN OF RT SHOULDER M25.511 [id number] 04/04/2017 17:20:00 04/04/2017 19:05:00 DIS Emergency MAYTE DICKERSON APRN [facility] ER FELL/RT SHOULDER PAIN/LT HAND BRUISING [id number] 12/12/2016 14:07:00 12/12/2016 15:55:00 DIS Emergency TURNER RUIZ MD [facility] ER FALL/R KNEE/ELBOW/HAND INJ [id number] 12/01/2016 16:53:00 12/01/2016 23:59:59 CLS Outpatient HUMBERTO CHRISTIAN MD [facility] LAB CROHN'S DISEASE [id number] 11/05/2016 20:14:00 11/06/2016 07:16:00 DIS Outpatient ARTHUR LOVING APRN [facility] SLEEP OBSERVED APNEAS; SLEEP APNEA, UNSPECIFIED [id number] 09/29/2016 14:06:00 09/29/2016 15:58:00 DIS Emergency JENNIFER BRIDGES [facility] ER CONSTIPATION [id number] 09/09/2016 20:45:00 09/10/2016 04:10:00 DIS Outpatient ARTHUR LOVING APRN [facility] SLEEP SNORING,MORNING HEADACHE [id number] 08/03/2016 09:54:00 08/03/2016 23:59:59 CLS Outpatient BRENTON DORAN MD [facility] RAD ELEVATED ALT MEASUREMENT [id number] 07/30/2016 12:50:00 07/30/2016 23:59:59 CLS Outpatient BRENTON DORAN MD [facility] RAD HEMATURIA,RIGHT SIDED THORACIC BACK PAIN [id number] 07/16/2016 13:15:00 07/16/2016 23:59:59 CLS Outpatient ORNY REYES MD [facility] RAD PULSITILE TINNITIS [id number] 06/29/2016 13:33:00 06/29/2016 23:59:59 CLS Outpatient BRENTON DORAN MD [facility] RAD CHRONIC LENSION-TYPE HEADACHE [id number] 01/25/2016 10:45:00 01/25/2016 11:59:00 DIS Emergency MAYTE DICKERSON APRN [facility] ER UNABLE TO MOVE L LEG [id number] 12/10/2015 07:43:00 12/10/2015 11:37:00 DIS Outpatient RONY SAMANIEGO MD [facility] SDC LT.CARPAL TUNNEL [id number] 12/02/2015 12:57:00 12/02/2015 23:59:59 CLS Outpatient RONY SAMANIEGO MD [facility] PREOP CARPEL TUNNEL [id number] 04/18/2015 14:20:00 04/18/2015 23:59:59 CLS Outpatient ULI GOMEZ MD [facility] RAD CONSTIPATION [id number] 01/01/2015 10:11:00 01/01/2015 23:59:59 CLS Outpatient ULI GOMEZ MD [facility] RAD UMBILICAL HERNIA, [id number] 08/29/2014 09:17:00 08/29/2014 23:59:59 CLS Outpatient WIL CARREON APRN [facility] RAD ABD PAIN,EPIGASTRIC, DIARHEA [id number] 01/29/2014 16:09:00 01/29/2014 23:59:59 CLS Outpatient WIL CARREON APRN [facility] RAD RUQ PAIN [id number] 03/22/2018 08:45:00 CALVIN SAMANIEGO MD, RONY Sykes [facility] RIGHT CALCANEOUS EXOTOSIS [id number] 07/24/2016 08:35:00 Document Registration [id number] 12/17/2016 10:10:00 Document Registration [id number] 06/15/2017 07:06:00 Document Registration
[2018-03-22] MEDS: LACTATED RINGERS 1,000 ML IV PRN ×2 (06:46→09:02)
[2018-03-22] MEDS ORDERED: FAMOTIDINE 20MG/2ML IV (PEPCID) ONE (06:49)
[2018-03-22] MEDS ORDERED: BUPIVACAINE 0.25% 30 ML (SENSORCAINE) VIAL ONE (07:09)
--- NOTE | 2018-03-22 07:20 | Progress Note-Pre Operative ---
Pre-Operative Progress Note H&P Reviewed The H&P was reviewed, patient examined and no changes noted. Date Seen by Provider: Mar 22, 2018 Time Seen by Provider: 07:19 Date H&P Reviewed: Mar 22, 2018 Time H&P Reviewed: 07:19 Pre-Operative Diagnosis: right calcaneal exostosis RONY SAMANIEGO MD Mar 22, 2018 07:20
--- NOTE | 2018-03-22 07:21 | Progress Note-Post Operative ---
Post-Operative Progess Note Surgeon (s)/Principal Engineer (s) Surgeon RONY SAMANIEGO MD Principal Engineer: none Pre-Operative Diagnosis right calcaneal exostosis Post-Operative Diagnosis right calcaneal exostosis Procedure & Operative Findings Date of Procedure 03/22/18 Procedure Performed/Findings right calcaneal exostosis excision Anesthesia Type GETA Estimated Blood Loss Estimated blood loss (mL): 50 ml Specimens/Packing Specimens Removed none Packing: none RONY SAMANIEGO MD Mar 22, 2018 07:21
[2018-03-22] MEDS ORDERED: HYDR-3062 PO (07:22)
[2018-03-22] MEDS ORDERED: HYDROcodone/APAP 5 MG/325 MG (LORTAB) TAB PO PRN (07:30)
[2018-03-22] MEDS ORDERED: SUGAMMADEX 500 MG/5 ML VIAL (BRIDION) IV ONE (08:58)
[2018-03-22] MEDS ORDERED: SEVOFLURANE (ULTANE) 15 ML INHAL SOLN ONE (09:14)
[2018-03-22] MEDS ORDERED: DEXAMETHASONE 10 MG/ML (DECADRON) 1 ML VIAL ONE (09:15)
[2018-03-22] MEDS ORDERED: ONDANSETRON 4 MG/2 ML (SDV) Z0FRAN IVP PRN (09:30)
[2018-03-22] MEDS: fentaNYL INJECTION 100 MCG/2 ML AMP IVP PRN ×2 (09:30→09:35)
[2018-03-22 10:05] VITALS: BP 109/65
[2018-03-22 10:35] VITALS: BP 109/64
[2018-03-22] MEDS ORDERED: HYDROcodone/APAP 5 MG/325 MG (LORTAB) TAB PO ONE (10:45)
[2018-03-22 11:05] VITALS: BP 109/59
[2018-03-22 11:40] VITALS: BP 109/59
--- NOTE | 2018-03-22 14:41 | Physical Therapy Ortho Eval ---
PT Orthopedic Evaluation Type of Surgery right calcaneous exotosis Prior Level of Function Current Living Status: Spouse Locomotion (Upon Admit): Straight Cane Established Durable Medical Eq: Front Wheeled Walker Subjective Subjective Pt reports she has had other orthopedic surgeries and feels she will be able to mange fine with this one. Entry Into Home: Stairs With Railing (4) Steps Into Home: 4 Steps Inside Home: 0 Steps Accessories: Railing Present Motor Control Motor Control: Motor Control WNL ROM ROM: WFL Strength Strength: WFL Transfer Transfers (B, C, W/C) (FIM): 5 (mod indep post treatment) Gait Gait Assistive Device: FWW Right Lower Extremity: Right Weight Bearing Status RLE: Touch Toe Bearing Left Lower Extremity: Left Weight Bearing Status LLE: Full Weight Bearing educated pt on TTWB status, she verbalized and demonstrated understanding. Gait (FIM): 5 (6 post treatment) Distance (FIM): 3=150 ft Summary/Comments TTWB; safe and steady ABle to go up/down a curb step with FWW with TTWB; verbalized and demonstrated correct sequencing on the stairs. Treatment Rendered Treatment: Gait Train, Step Train Assessment/Goals Goal Time Frame: 1 Visit Safe Ambulation: Yes Plan Treatment Plan: Discharge PT/Family Agrees to Plan: Yes Time Time In: 1140 Time Out: 1200 Total Billed Treatment Time: 20 Billed Treatment Time visit EVL 20 Yes PT/OT Therapy GCodes Therapy Functional Limitation: Physical Therapy Test(s)/Tool used to determine: Level of Assistance Scale Functional Limitation-Current Charge Code: MOBCUR Modifier: CJ Functional Limitation-Goal Charge Code: MOBGOAL Modifier: CI Functional Limitation-D/C Charge Codes: MOBDC Modifier: CI GERRI JAVED PT Mar 22, 2018 14:41
--- NOTE | 2018-03-22 14:47 | OPERATIVE REPORT ---
DATE OF SERVICE: 03/22/2018 PREOPERATIVE DIAGNOSIS: Right calcaneal exostosis (Valentina's deformity). POSTOPERATIVE DIAGNOSIS: Right calcaneal exostosis (Valentina's deformity). PROCEDURE: Right calcaneal exostosis excision. SURGEON: Rony Samaniego MD ANESTHESIA: General endotracheal by Dr. Merino. TOURNIQUET TIME: 47 minutes at 300 mmHg. ESTIMATED BLOOD LOSS: Minimal. DRAINS: None. COMPLICATIONS: None. POSTOPERATIVE PLAN: Toe touch weightbearing for 2 weeks and then conversion to a walking boot. The patient was transported to the recovery room awake and in stable condition. STATEMENT OF MEDICAL NECESSITY: The patient is a 62-year-old female with longstanding right heel pain. She was tender over her Achilles insertion with a palpable osteophyte. Radiographs reveal a Valentina's exostosis. She had tried rest, activity modifications and shoe modifications without relief, and due to functional impairment and failure to improve with conservative measures, the patient elected to proceed with surgical excision. DESCRIPTION OF PROCEDURE: After risks and benefits of the procedure were discussed and questions were answered, an informed consent was signed and placed in the chart. The operative site was confirmed in the preoperative holding area initiated by the surgeon. The patient was then transported to the operating room. After adequate levels of general endotracheal anesthetic was obtained, the patient was carefully placed in the prone position being careful to pad all bony prominences and ensured that there were no pressure areas. A timeout was called confirming the operative site. Once in the prone position, the right lower extremity was prepped and draped in the usual sterile fashion. A posterolateral incision was made full thickness in nature after elevating the tourniquet. The underlying soft tissues were carefully dissected. The Achilles insertion was inspected and the osteophyte was found to be in the central portion of the tendon; therefore the tendon was split longitudinally and then extended to its insertion transversely. At the insertion site, the Achilles was elevated, leaving it attached on the medial and lateral aspects of its insertion site. There was degenerative tendinosis noted which was excised. The osteophyte within the tendon was excised and the Valentina's deformity was then excised with a shaver and rongeur and then the edges were rasped to a smooth surface. An Arthrex SpeedBridge device was then used to repair the Achilles back to its [place] insertion site. This was placed in a crisscross fashion and tensioned. The repair was felt to be excellent. The longitudinal split was then approximated with a #2 FiberWire in a [id number] interrupted fashion. The repair was closely inspected and intact. The ankle was taken through a range of motion with full motion obtained and no undue tension noted at the repair site. The wound was copiously irrigated and was copiously irrigated prior to tendon reattachment as well. The skin was then reapproximated with 3-0 Vicryl in the subcutaneous layer and the skin was closed with 4-0 nylon in horizontal mattress interrupted fashion. Incision was infiltrated with plain Marcaine. The tourniquet was deflated. A soft dressing was applied followed by a posterior splint with a U. The patient was then transported to the recovery room awake and in stable condition. Job ID: [id number] DocumentID: [id number] Dictated Date: 03/22/2018 09:15:41 Patient Assessment Coordinator Date: 03/22/2018 14:46:39 Dictated By: RONY SAMANIEGO MD
== END 2018-03-22 11:50 | disposition home or self-care (01) ==
LOC: SDC 06:10
PROVIDERS: ATTEND Orthopaedic Surgery
DX: M77.31 Calcaneal spur, right foot (principal); I10 Essential (primary) hypertension; E05.90 Thyrotoxicosis, unspecified without thyrotoxic crisis or storm; E11.9 Type 2 diabetes mellitus without complications; E78.00 Pure hypercholesterolemia, unspecified; E78.5 Hyperlipidemia, unspecified; K50.90 Crohn's disease, unspecified, without complications; K74.60 Unspecified cirrhosis of liver; G47.33 Obstructive sleep apnea (adult) (pediatric); Z96.651 Presence of right artificial knee joint; E66.01 Morbid (severe) obesity due to excess calories; Z79.899 Other long term (current) drug therapy; Z79.84 Long term (current) use of oral hypoglycemic drugs; Z88.0 Allergy status to penicillin; Z88.2 Allergy status to sulfonamides; Z88.7 Allergy status to serum and vaccine; Z68.43 Body mass index [BMI] 50.0-59.9, adult
CPT/HCPCS: 82962

== ENCOUNTER 2018-04-15 13:05 | Emergency (ER) | payer MEDICARE ==
[~2018-04-15] VITALS: Ht 157.5 cm; Wt 138.8 kg
[~2018-04-15 13:05] MED LIST changes: +HYDR-3062 PO
[2018-04-15] MEDS ORDERED: CEPH-507 PO (13:28)
[2018-04-15] MEDS ORDERED: METF500T5 PO (13:30)
--- NOTE | 2018-04-15 13:47 | ED Integumentary General ---
General Chief Complaint: Skin/Wound Problems Stated Complaint: R ANKLE SURGERY,INCISION AREA RED Nursing Triage Note: pt had right heel spur repair by dr willoughby on 03/22/18. she followed up with 2 weeks post op. she reports incision has been red, but Tuesday it was more red, dry et tender. On , she talked to Nate Jade on et he advised that she apply neosporin et started keflex 500mg tid. Swelling, redness et pain of foot et ankle worsening. Source: patient Exam Limitations: no limitations History of Present Illness Date Seen by Provider: Apr 15, 2018 Time Seen by Provider: 13:37 Initial Comments Patient presents to the ER by private conveyance with a chief complaint that she 's having some swelling, redness and wound breakdown on her right heel. She says she had a bone spur removed by Drs. Willoughby about 3 weeks ago. Start having some redness and swelling last couple days so she went to days ago to Dr. Willoughby 's office and was seen by his physician's bilingual office assistant who put her on Keflex and gave her strict instructions for wound care. She has a history of diabetes and she says her A1c was actually under very good control according to her primary care doctor. She takes metformin and Januvia only. She says that she's been cleaning her wound daily with soap water in the shower and then carefully patting it dry. She'll apply a thin amount of lotion to her feet but not over the wound and rub it in until her heater dry before putting her socks and shoes on. She says the redness and swelling was worse yesterday and better today. She has not been keeping it elevated but she did apply ice to it yesterday and she said that this made it hurt worse. Says her pain right now is about a 4-5 out of 10 but she does not require anything presently. She's been using her pain medicine but she is about out. She is concerned with her wound because she has plans to go up and get her colonoscopy next week and she wants to make sure that her wound is under control before she does that. She has a history of what was thought to be Crohn's but is now not thought to be. She was on Humira and some other medications but they were not making any difference in the ulceration seen in her small intestine so she got her last dose 4 weeks ago. She 's had no fevers chills nausea vomiting, dysuria or constipation. She does have chronic loose stools for the last 10 years. She got 2 doses of the Keflex and and a full 3 doses Tuesday, yesterday. Allergies and Home Medications Allergies Coded Allergies: Penicillins (Verified Allergy, Intermediate, HIVES, 05/18/17) Sulfa (Sulfonamide Antibiotics) (Verified Allergy, Intermediate, HIVES, 05/18/17) adhesive tape (Verified Allergy, Intermediate, HIVES, 05/18/17) tetanus and diphtheria toxoids (Verified Allergy, Intermediate, HIVES, 05/18) Influenza Virus Vaccines (Verified Adverse Reaction, Mild, NAUSEA, 05/18/17) atorvastatin (Verified Adverse Reaction, Mild, NAUSEA, 05/18/17) hydromorphone (Verified Adverse Reaction, Mild, hallucinations, 05/18/17) morphine (Verified Adverse Reaction, Mild, hallcination, 05/18/17) simvastatin (Verified Adverse Reaction, Mild, NAUSEA, 05/18/17) Uncoded Allergies: myocins (Allergy, Unknown, NAUSEA, 12/02/15) Home Medications Ascorbate Calcium 500 Mg Tablet, 500 MG PO DAILY, (Reported) Cephalexin 500 Mg Capsule, 500 MG PO TID, (Reported) Cholecalciferol (Vitamin D3) 2,000 Unit Tablet, 2,000 UNIT PO DAILY, (Reported) Cyanocobalamin 1,000 Mcg/Ml Inj, 1,000 MCG IJ MONTHLY, (Reported) Ezetimibe 10 Mg Tablet, 10 MG PO DAILY, (Reported) Hydrocodone/Acetaminophen 1 Each Tablet, 1 EACH PO Q4H Prescribed by: RONY WILLOUGHBY on 03/22/18 0722 Levothyroxine Sodium 100 Mcg Tablet, 100 MCG PO DAILY, (Reported) Lisinopril 40 Mg Tablet, 40 MG PO DAILY, (Reported) Melatonin/Pyridoxine 1 Each Tablet, 5 MG PO HS, (Reported) Metformin HCl 500 Mg Tablet, 500 MG PO BID, (Reported) Sertraline HCl 100 Mg Tablet, 200 MG PO DAILY, (Reported) take 2 (100mg) tabs Sitagliptin Phosphate 50 Mg Tablet, 50 MG PO DAILY, (Reported) [Ferrous Sulfate] , 65 MG PO HS, (Reported) Patient Home Medication List Home Medication List Reviewed: Yes Constitutional: No chills, No diaphoresis, No fever, No malaise EENTM: No ear discharge, No ear pain Respiratory: No cough, No short of breath Cardiovascular: No chest pain, No edema Gastrointestinal: see HPI; No abdominal pain, No constipation; diarrhea ( chronic); No nausea, No vomiting Genitourinary: No discharge, No dysuria : No Musculoskeletal: No back pain, No joint pain Skin: other (erythema swelling and wound breakdown of the surgical wound over her right heel) Past Rypyuxs-Pywusd-Tnhcqe Hx Patient Social History Alcohol Use: Rarely Uses Recreational Drug Use: No Smoking Status: Never a Smoker 2nd Hand Smoke Exposure: No Recent Foreign Travel: No Contact w/Someone Who Travel: No Recent Infectious Disease Expo: No Recent Hopitalizations: No Physical Abuse: No Sexual Abuse: No Mistreated: No Fear: No Seasonal Allergies Seasonal Allergies: No Past Medical History Surgeries: Yes (right tkr x2, left heel spur removed, mass removed from colon and resection) Appendectomy, Hysterectomy, Thyroidectomy Respiratory: Yes (uses cpap) Sleep Apnea Currently Using CPAP: Yes Cardiac: Yes High Cholesterol, Hypertension Neurological: No 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 Sexually Transmitted Disease: No HIV/AIDS: No Gastrointestinal: Yes (benign colon mass removed, enlarged spleen) Chronic Diarrhea, Ulcer, Cirrhosis Musculoskeletal: Yes Osteoporosis, Arthritis Endocrine: Yes Diabetes, Non-Insulin dep Loss of Vision: Bilateral Hearing Impairment: Denies Cancer: No Psychosocial: Yes Anxiety, Depression Nursing Suicide Risk Score: 0 Integumentary: No Blood Disorders: Yes (HX ANEMIA) Adverse Reaction/Blood Tranf: No Family Medical History No Pertinent Family Hx Physical Exam Vital Signs Vital Signs - First Documented 04/15/18 13:19 Temp 98.6 Pulse 69 Resp 20 B/P (MAP) 175/85 (115) Pulse Ox 97 O2 Delivery Room Air Capillary Refill : Less Than 3 Seconds General Appearance: WD/WN, no apparent distress HEENT: PERRL/EOMI, pharynx normal Neck: non-tender, normal inspection Cardiovascular: normal peripheral pulses, regular rate, rhythm Respiratory: no respiratory distress, no accessory muscle use Gastrointestinal: non tender, soft Extremities: normal range of motion, non-tender, no calf tenderness, normal capillary refill, other (negative for Homans sign) Neurologic/Psychiatric: alert, normal mood/affect, oriented x 3 Skin: other (surgical wound right heel over the insertion of the Achilles tendon and calcaneus with mild erythema and swelling on the right foot only. No discharge) Skin Problem Character: erythema, swelling, tenderness, warm Progress/Results/Core Measures Results/Orders Lab Results Laboratory Tests Test 04/15/18 13:44 Range/Units White Blood Count 6.4 4.3-11.0 10^3/uL Red Blood Count 4.18 L 4.35-5.85 10^6/uL Hemoglobin 13.2 11.5-16.0 G/DL Hematocrit 39 35-52 % Mean Corpuscular Volume 94 80-99 FL Mean Corpuscular Hemoglobin 32 25-34 PG Mean Corpuscular Hemoglobin Concent 34 32-36 G/DL Red Cell Distribution Width 12.8 10.0-14.5 % Platelet Count 173 130-400 10^3/uL Mean Platelet Volume 9.2 7.4-10.4 FL Neutrophils (%) (Auto) 60 42-75 % Lymphocytes (%) (Auto) 26 12-44 % Monocytes (%) (Auto) 11 0-12 % Eosinophils (%) (Auto) 4 0-10 % Basophils (%) (Auto) 1 0-10 % Neutrophils # (Auto) 3.8 1.8-7.8 X 10^3 Lymphocytes # (Auto) 1.6 1.0-4.0 X 10^3 Monocytes # (Auto) 0.7 0.0-1.0 X 10^3 Eosinophils # (Auto) 0.2 0.0-0.3 10^3/uL Basophils # (Auto) 0.0 0.0-0.1 10^3/uL Sodium Level 142 135-145 MMOL/L Potassium Level 3.9 3.6-5.0 MMOL/L Chloride Level 108 H 98-107 MMOL/L Carbon Dioxide Level 23 21-32 MMOL/L Anion Gap 11 5-14 MMOL/L Blood Urea Nitrogen 13 7-18 MG/DL Creatinine 0.75 0.60-1.30 MG/DL Estimat Glomerular Filtration Rate > 60 BUN/Creatinine Ratio 17 Glucose Level 148 H 70-105 MG/DL Calcium Level 10.4 H 8.5-10.1 MG/DL Total Bilirubin 0.7 0.1-1.0 MG/DL Aspartate Amino Transf (AST/SGOT) 35 H 5-34 U/L Alanine Aminotransferase (ALT/SGPT) 22 0-55 U/L Alkaline Phosphatase 67 40-136 U/L C-Reactive Protein High Sensitivity 1.10 H 0.00-0.50 MG/DL Total Protein 6.8 6.4-8.2 GM/DL Albumin 3.9 3.2-4.5 GM/DL My Orders Orders - GUILLE PEREZ Cbc With Automated Diff (04/15/18 13:36) Comprehensive Metabolic Panel (04/15/18 13:36) Hs C Reactive Protein (04/15/18 13:36) Foot, Right, 3 View (04/15/18 13:36) Vital Signs/I&O 04/15/18 13:19 Temp 98.6 Pulse 69 Resp 20 B/P (MAP) 175/85 (115) Pulse Ox 97 O2 Delivery Room Air Blood Pressure Mean: 115 Progress Progress Note : Time: 13:47 Progress Note It looks like she has a cellulitis surrounding her wound is some minor breakdown. She's been appropriately's seen and treated by her surgeon with Keflex and it appears that today she is having an improvement in her symptoms based on the marker outline that was drawn yesterday by her versus what I'm seeing in the ER today. She's having some anxiety because she has scoped some procedures scheduled for next week with a colorectal surgeon and does not want this wound to interfere with that. We have given her careful counseling and instructions on how to care for wounds and instructed her to stop using alcohol on the wound as this will slow wound healing. We have instructed her to continue taking the Keflex. Return to go ahead and obtain a plain film of her foot and some basic labs. Her Humira was a month ago so is dubious what a normal white blood cell count and CRP would mean at this time. However there is no evidence of ostia myelitis and her symptoms are improving by her history then an osteomyelitis or serious infection are fairly unlikely. Diagnostic Imaging Diagonstic Imaging: Xray Plain Films/CT/US/NM/MRI: other (right foot) Comments VIA [facility]. [place], [place] NAME: MECHE LOPEZ [facility] REC#: [id number] PT STATUS: REG ER : 1955 PHYSICIAN: GUILLE PEREZ MD ADMIT DATE: 04/15/18/ER Draft Date of Exam:04/15/18 FOOT, RIGHT, 3 VIEW EXAMINATION: Right foot radiographs, three views. COMPARISON: None. HISTORY: 62-year-old female, redness and swelling in the region of prior heel spur surgery on March 22. FINDINGS: There is mild degenerative change at the first metatarsophalangeal joint. There is a large calcaneal heel spur. There is degenerative type enthesopathy at the insertion of the Achilles tendon. There is lack of well-defined cortex of the posterior superior aspect of the calcaneus, which may relate to bone erosion. Correlation for potential overlying soft tissue ulcer at this site would be recommended. There is no radiographically apparent contour deformity. There is no identified unexpected radiopaque foreign body. The additional joint spaces appear well preserved. There is no ankle joint effusion. There are vascular calcifications present. IMPRESSION: 1. Erosions of the posterior superior calcaneus without radiographically apparent overlying soft tissue defect. Particularly if there is no overlying soft tissue defect, rheumatoid arthritis, psoriatic arthritis, and Rena's disease would be in the differential diagnosis. 2. Degenerative type calcaneal enthesopathy. 3. No additional site of bone destruction. 4. No unexpected radiopaque foreign body. Dictated on workstation # [id number] Dict: 04/15/18 1423 Trans: 04/15/18 1430 [id number] Interpreted by: AILYN DIEGO MD Electronically signed by: Reviewed: Reviewed by Me Departure Impression Primary Impression: Cellulitis Qualified Codes: L03.115 - Cellulitis of right lower limb Additional Impression: Delayed surgical wound healing Qualified Codes: T81.89XA - Other complications of procedures, not elsewhere classified, initial encounter Disposition: 01 HOME, SELF-CARE Condition: Stable Departure-Patient Inst. Decision time for Depature: 14:38 Referrals: BRENTON DORAN MD (PCP/Family) Primary Care Physician Patient Instructions: Wound Care (DC) Add. Discharge Instructions: Keep the wound clean with regular soap and water. Dry the wound and foot off very well. You can apply if thin layer of Vaseline if you desire on the skin to keep it moist. Use the antibiotics as prescribed by your surgeon and follow-up in the next week or 2 as planned. Return to the ER to begin to have fevers chills nausea vomiting or unable to tolerate the medications or other worrisome features. Keep her foot elevated when possible above the level of your heart. Use a Nishant bandage for compression around her foot and ankle. All discharge instructions reviewed with patient and/or family. Voiced understanding. Copy Copies To 1: GUMARO KIM TITUS J Apr 15, 2018 13:47
[2018-04-15 13:53] LABS: BASOPHILS % (AUTO) 1 % (0-10); EOSINOPHILS # (AUTO) 0.2 10^3/uL (0.0-0.3); EOSINOPHILS % (AUTO) 4 % (0-10); HEMATOCRIT 39 % (35-52); HEMOGLOBIN 13.2 G/DL (11.5-16.0); LYMPHOCYTES # (AUTO) 1.6 X 10^3 (1.0-4.0); LYMPHOCYTES % (AUTO) 26 % (12-44); MEAN CORPUSCULAR HEMOGLOBIN 32 PG (25-34); MEAN CORPUSCULAR HGB CONC 34 G/DL (32-36); MEAN CORPUSCULAR VOLUME 94 FL (80-99); MEAN PLATELET VOLUME 9.2 FL (7.4-10.4); MONOCYTES # (AUTO) 0.7 X 10^3 (0.0-1.0); MONOCYTES % (AUTO) 11 % (0-12); NEUTROPHILS # (AUTO) 3.8 X 10^3 (1.8-7.8); NEUTROPHILS % (AUTO) 60 % (42-75); PLATELET COUNT 173 10^3/uL (130-400); RED BLOOD COUNT 4.18 10^6/uL (4.35-5.85); RED CELL DISTRIBUTION WIDTH 12.8 % (10.0-14.5); WHITE BLOOD COUNT 6.4 10^3/uL (4.3-11.0)
[2018-04-15 14:16] LABS: ALANINE AMINOTRANSFERASE 22 U/L (0-55); ALBUMIN 3.9 GM/DL (3.2-4.5); ALKALINE PHOSPHATASE 67 U/L (40-136); BILIRUBIN,TOTAL 0.7 MG/DL (0.1-1.0); BUN/CREATININE RATIO 17; CALCIUM 10.4 MG/DL (8.5-10.1); CARBON DIOXIDE 23 MMOL/L (21-32); CHLORIDE 108 MMOL/L (98-107); CREATININE SERUM 0.75 MG/DL (0.60-1.30); GFR ESTIMATED > 60; GLUCOSE 148 MG/DL (70-105); POTASSIUM 3.9 MMOL/L (3.6-5.0); SODIUM 142 MMOL/L (135-145); TOTAL PROTEIN 6.8 GM/DL (6.4-8.2)
--- NOTE | 2018-04-15 14:31 | Diagnostic Imaging Report ---
EXAMINATION: Right foot radiographs, three views. COMPARISON: None. HISTORY: 62-year-old female, redness and swelling in the region of prior heel spur surgery on March 22. FINDINGS: There is mild degenerative change at the first metatarsophalangeal joint. There is a large calcaneal heel spur. There is degenerative type enthesopathy at the insertion of the Achilles tendon. There is lack of well-defined cortex of the posterior superior aspect of the calcaneus, which may relate to bone erosion. Correlation for potential overlying soft tissue ulcer at this site would be recommended. There is no radiographically apparent contour deformity. There is no identified unexpected radiopaque foreign body. The additional joint spaces appear well preserved. There is no ankle joint effusion. There are vascular calcifications present. IMPRESSION: 1. Erosions of the posterior superior calcaneus without radiographically apparent overlying soft tissue defect. Particularly if there is no overlying soft tissue defect, rheumatoid arthritis, psoriatic arthritis, and Rena's disease would be in the differential diagnosis. If there is an overlying soft tissue defect, osteomyelitis is added to the differential and would be of primary concern. 2. Degenerative type calcaneal enthesopathy. 3. No additional site of bone destruction. 4. No unexpected radiopaque foreign body. Dictated by: Dictated on workstation # [id number]
[2018-04-15] MEDS ORDERED: ACHD5005 PO (14:47)
[2018-04-15 14:55] VITALS: BP 175/94
== END 2018-04-15 15:06 | disposition home or self-care (01) ==
LOC: EDUNIT# 13:05 → ER 13:08
DX: T81.89XA Other complications of procedures, not elsewhere classified, initial encounter (principal); L03.115 Cellulitis of right lower limb; G47.30 Sleep apnea, unspecified; E78.00 Pure hypercholesterolemia, unspecified; I10 Essential (primary) hypertension; E11.9 Type 2 diabetes mellitus without complications; F41.9 Anxiety disorder, unspecified; F32.9 Major depressive disorder, single episode, unspecified; Z87.19 Personal history of other diseases of the digestive system; Z90.710 Acquired absence of both cervix and uterus; Z88.0 Allergy status to penicillin; Z88.2 Allergy status to sulfonamides; Z91.048 Other nonmedicinal substance allergy status; Z88.7 Allergy status to serum and vaccine; Z88.8 Allergy status to other drugs, medicaments and biological substances; Z88.5 Allergy status to narcotic agent; Z79.84 Long term (current) use of oral hypoglycemic drugs; Z90.49 Acquired absence of other specified parts of digestive tract
CPT/HCPCS: 36415; 73630; 80053; 85025; 86141

== ENCOUNTER 2018-11-13 11:15 | Outpatient (RCR) | payer MEDICARE, OTHER ==
[~2018-11-13 11:15] MED LIST changes: +ACHD5005 PO; +CEPH-507 PO; +METF-397 PO; +METF-398 PO; +METF-399 PO; -METF10002 PO; -METF850T2 PO; -OXYC-197 PO; +OXYC1TAB87 PO
== END 2019-02-11 | disposition home or self-care (01) ==
LOC: CARD 11:15
PROVIDERS: ATTEND Family Medicine
DX: R00.2 Palpitations (principal)
CPT/HCPCS: 93225; 93226

== ENCOUNTER → 2019-01-05 | Outpatient (CLI) | payer MEDICARE | LOC: CARD 13:38 | PROVIDERS: ATTEND Family Medicine | DX: R00.8 Other abnormalities of heart beat (principal); I34.0 Nonrheumatic mitral (valve) insufficiency | CPT/HCPCS: 93306 ==

== ENCOUNTER 2019-02-20 11:07 | Day surgery (SDC) | payer MEDICARE, OTHER ==
[~2019-02-20] VITALS: Ht 157.5 cm; Wt 138.8 kg
[2019-02-20] VITALS (10 sets, daily range): BP systolic 141–169; BP diastolic 71–88
[2019-02-20] MEDS ORDERED: NS IV 1000 ML 1,000 ML ONE (11:32)
[2019-02-20] MEDS ORDERED: LIDOCAINE 1% INJ 20 ML 20 ML VIAL ONE (11:32)
[2019-02-20] MEDS ORDERED: HEParin (CATH LAB) 2,000 ML IV ONE (11:32)
[2019-02-20] MEDS ORDERED: NS IV 1000 ML 1,000 ML IV SCH ×2 (12:00→13:36)
[2019-02-20 12:01] LABS: HEMOGLOBIN 13.1 G/DL (11.5-16.0); MEAN PLATELET VOLUME 9.9 FL (7.4-10.4); RED CELL DISTRIBUTION WIDTH 12.9 % (10.0-14.5); WHITE BLOOD COUNT 8.5 10^3/uL (4.3-11.0)
[2019-02-20 12:12] LABS: INR 1.1 (0.8-1.4); PROTHROMBIN TIME PATIENT 14.6 SEC (12.2-14.7)
[2019-02-20] MEDS ORDERED: HYDR25TA4 PO (12:18)
[2019-02-20] MEDS ORDERED: METO-387 PO (12:18)
[2019-02-20] MEDS ORDERED: INUL2TAB8 PO (12:18)
[2019-02-20] MEDS ORDERED: ASPI-586 PO (12:18)
[2019-02-20] MEDS ORDERED: MIDAZOLAM 5 MG/5 ML (VERSED) VIAL ONE (12:19)
[2019-02-20] MEDS ORDERED: fentaNYL INJECTION 100 MCG/2 ML AMP ONE (12:19)
[2019-02-20 12:22] LABS: ALANINE AMINOTRANSFERASE 25 U/L (0-55); ALBUMIN 3.9 GM/DL (3.2-4.5); ALKALINE PHOSPHATASE 73 U/L (40-136); BILIRUBIN,TOTAL 0.9 MG/DL (0.1-1.0); BUN/CREATININE RATIO 21; CALCIUM 9.4 MG/DL (8.5-10.1); CARBON DIOXIDE 22 MMOL/L (21-32); CHLORIDE 111 MMOL/L (98-107); CHOLESTEROL 171 MG/DL (< 200); CREATININE SERUM 0.71 MG/DL (0.60-1.30); GFR ESTIMATED > 60; GLUCOSE 137 MG/DL (70-105); HDL CHOLESTEROL 55 MG/DL (40-60); POTASSIUM 4.1 MMOL/L (3.6-5.0); SODIUM 142 MMOL/L (135-145); TOTAL PROTEIN 6.8 GM/DL (6.4-8.2); TRIGLYCERIDES 79 MG/DL (<150); VLDL CHOLESTEROL 16 MG/DL (5-40)
--- NOTE | 2019-02-20 13:29 | CARDIAC CATHETERIZATION ---
DATE OF SERVICE: 02/20/2019 CARDIAC CATHETERIZATION REPORT The patient is a 63-year-old lady with multiple coronary artery disease risk factors, who has had symptoms of palpitations and chest discomfort. Chest discomfort is suggestive of new onset of angina. Cardiac catheterization was carried out today after having obtained an informed consent. PROCEDURE IN DETAIL: She was brought to the cardiac catheterization laboratory in a fasting state. Right groin was prepared and draped in the usual sterile fashion. Lidocaine 1% was used for local anesthesia. Modified Seldinger technique was used to advance a 5-Nauruan sheath in the right femoral artery, 5-Nauruan JL4 catheter was used for left coronary angiography and 5-Nauruan JR4 catheter was used for right coronary angiography, 5-Nauruan pigtail catheter was used for left heart catheterization and left ventricular angiography. With wire advancement over which catheters were advanced, the wire tended to go into the neck arteries, suggesting abnormal anatomy of the aortic arch and the neck vessels. Therefore, following completion of the left heart catheterization, we carried out angiography of the aortic arch. We placed the pigtail at the aortic arch and aortic arch angiography was performed. The catheter was then removed. Angiography of the right femoral artery was carried out through the sheath. Mynx was used to achieve hemostasis. She tolerated the procedure well. HEMODYNAMICS: Left ventricular end-diastolic pressure following coronary angiography was 25 mmHg. There was no significant pressure gradient on pullback across the aortic valve. Ascending aortic pressure was 153/83 with a mean of 75 mmHg. CORONARY ANGIOGRAPHY: Left main coronary artery, left anterior descending artery, left circumflex artery, right coronary artery do not exhibit any angiographically significant disease. Right coronary artery is dominant. LEFT VENTRICULAR ANGIOGRAPHY: Left ventricular angiography was carried out in the right anterior oblique projection. Global left ventricular systolic function normal. No regional wall motion abnormalities are seen. Left ventricular ejection fraction is estimated to be 60%. There does not appear to be significant mitral regurgitation. AORTIC ARCH ANGIOGRAPHY: Aortic arch angiography did not indicate any thoracic aortic aneurysm or dissection. The neck arteries are identified and appear quite tortuous. The left subclavian and the left common carotid appeared to arise from a common trunk. CONCLUSIONS: 1. No angiographically significant coronary artery disease. 2. Normal global left ventricular systolic function with ejection fraction of 60%. 3. Elevated left ventricular end diastolic pressure. DISCUSSION AND RECOMMENDATIONS: Based on results of the study, it appears appropriate to continue a conservative approach. Risk factor modification has been reviewed. We have advised outpatient followup. Job ID: [id number] DocumentID: [id number] Dictated Date: 02/20/2019 13:16:14 Teleprinter Installer Date: 02/20/2019 13:29:01 Dictated By: CHARLINE CAT MD, MA, FACP, FACC,
--- NOTE | 2019-02-20 13:36 | Cardiac Procedure Note-CS/ASA ---
Pre-Procedure Note Pre-Op Procedure Note H&P Reviewed The H&P was reviewed, patient examined and no changes noted. Date H&P Reviewed: February 20, 2019 Time H&P Reviewed: 12:30 Conscious Sedation Pre-Proced Time 12:30 ASA Score 3 For ASA 3 and 4: Consider anesthesia and medical clearance. Also, for patients with a history of failed moderate sedation consider anesthesia. Airway Lungs Heart ASA score ASA 1: a normal healthy patient ASA 2: a patient with a mild systemic disease (mid diabetes, controlled hypertension, obesity ASA 3: a patient with a severe systemic disease that limits activity (angina , COPD, prior Myocardial infarction) ASA 4: a patient with an incapacitating disease that is a constant threat to life (CHF, renal failure) ASA 5: a moribund patient not expected to survive 24 hrs. (ruptured aneurysm) ASA 6: a declared brain- patient whose organs are being harvested. For emergent operations, add the letter E after the classification Mallampati Classification Grade 3 Sedation Plan Analgesia, Amnesia, Plan communicated to team members, Discussed options with patient/fam, Discussed risks with patient/fam The patient is an appropriate candidate to undergo the planned procedure, sedation, and anesthesia. The patient immediately re-assessed prior to indication. CHARLINE CAT MD FACP FAC CCDS February 20, 2019 13:36
--- NOTE | 2019-02-20 13:42 | Discharge Inst-Post CATH ---
Discharge Inst-CATH/EP Post Cardiac Cath/EP D/C Inst Follow Up/Plan F/u with Dr Thompson in 2 weeks ACTIVITY * Go Home directly and rest. * Limit activity of the leg (or wrist if it was used) for 7 days including aerobics, swimming, jogging, bicycling, etc. * Restrict stair-climbing for 7 days if possible, if not, climb up with your non -cath leg, then bring together on the same step. * Avoid lifting, pushing, pulling or excessive movement of the affected extremity for 7 days. * Customary sexual activity may be resumed after 2 days-use caution not to use a position that strains or causes pain to the affected extremity. * No driving for 24 hours. * NO SMOKING. * Avoid straining for bowel movements for 7 days. * Gentle walking on level ground is allowed. * Returning to work will depend on the type of procedure and the results. Your doctor will discuss this with you. CALL YOUR DOCTOR FOR ANY OF THE FOLLOWING: *If bleeding from the puncture site occurs- Apply gentle pressure to site with clean cloth and call your doctor or EMS. * If a knot or lump forms under the skin, increases in size, or causes pain. * If bruising appears to be worsening or moving further down your leg instead of disappearing. * Temperature above 101 F. CARE OF YOUR GROIN INCISION; * Bruising or purple discoloration of the skin near the puncture site is common. * You may shower only, no bathtub bathing for 5 days. Be careful to avoid slipping as your leg may feel stiff. * If a closure device was used on your femoral artery, please see the attached guide regarding care of the device and your leg. * Leave dressing on FOR 24 hours. CARE OF YOUR WRIST INCISION; * Bruising or purple discoloration of the skin near the puncture site is common. * You may shower. * DO NOT submerge wrist. * Leave dressing on FOR 24 hours. CHARLINE THOMPSON MD FACP FAC CCDS February 20, 2019 13:42
--- NOTE | 2019-02-20 13:42 | Discharge Inst-Cardiology ---
Discharge Inst-Cardiac Discharge Medications Continued Medications: Ascorbate Calcium (Vitamin C) 500 Mg Tablet 500 MG PO DAILY, TAB Aspirin (Aspir 81) 81 Mg Tablet.dr 81 MG PO DAILY, TAB Cholecalciferol (Vitamin D3) (Vitamin D-3) 2,000 Unit Tablet 2000 UNIT PO DAILY, TAB Cyanocobalamin (Cyanocobalamin Injection) 1,000 Mcg/Ml Inj 1000 MCG IJ MONTHLY, VIAL Ezetimibe (Zetia) 10 Mg Tablet 10 MG PO DAILY, TAB [Ferrous Sulfate] () 65 MG PO HS Hydrochlorothiazide (Hydrochlorothiazide) 25 Mg Tablet 25 MG PO DAILY, TAB Inulin (Fiber Gummies) 2 Gm Tab.chew 2 GM PO DAILY, TAB Levothyroxine Sodium (Levothyroxine Sodium) 100 Mcg Tablet 100 MCG PO DAILY, TAB Lisinopril (Lisinopril) 40 Mg Tablet 40 MG PO DAILY, TAB Melatonin/Pyridoxine (Melatonin 5 mg Tablet) 1 Each Tablet 5 MG PO HS, TAB Metoprolol Succinate (Metoprolol Succinate) 25 Mg Tab.er.24h 25 MG PO DAILY, TAB Sertraline HCl (Sertraline HCl) 100 Mg Tablet 200 MG PO DAILY, TAB take 2 (100mg) tabCHARLINE Headley MD FACP FAC CCDS February 20, 2019 13:42
[2019-02-20] MEDS ORDERED: PATIENT MAY USE OWN MEDS, ALL PO SCH (13:45)
--- NOTE | 2019-02-20 16:50 | NUR ---
PT TAKEN TO HER VEHICLE FOR DISMISSAL. 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 TIRE ON VEHICLE NOTED TO BE OBVIOUSLY LOW. PT STATES THEY WILL GO TO [employer] ACROSS FROM THE HOSPITAL AND HER DAUGHTER WILL PUT AIR IN IT. OFFERED TWICE TO HAVE PT RETURN TO [facility] [place] TO WAIT WHILE DAUGHTER TAKES CARE OF THE TIRE ISSUE. PT REFUSED, STATES THEY HAVE FRIENDS IN TOWN THEY CAN CONTACT FOR ASSIST IF NEED BE, AND THAT SHE JUST WANTS TO GO PLANNED.
== END 2019-02-20 16:50 | disposition home or self-care (01) ==
LOC: CATH 11:07 → SDC 13:37 → CATH 16:50
PROVIDERS: ATTEND Internal Medicine Cardiovascular Disease
DX: R07.89 Other chest pain (principal); R00.2 Palpitations; I34.0 Nonrheumatic mitral (valve) insufficiency; I10 Essential (primary) hypertension; E11.9 Type 2 diabetes mellitus without complications; M54.5 Low back pain; G89.29 Other chronic pain; G47.33 Obstructive sleep apnea (adult) (pediatric); K74.60 Unspecified cirrhosis of liver; E66.01 Morbid (severe) obesity due to excess calories; Z68.43 Body mass index [BMI] 50.0-59.9, adult; Z82.49 Family history of ischemic heart disease and other diseases of the circulatory system; Z79.82 Long term (current) use of aspirin; Z79.899 Other long term (current) drug therapy
CPT/HCPCS: 36221; 36415; 80053; 80061; 85027; 85610; 85730; 87081; 93005; 93458

== ENCOUNTER 2019-10-17 10:17 | Outpatient (CLI) | payer MEDICARE ==
[~2019-10-17] VITALS: Ht 157 cm; Wt 141.8 kg
[~2019-10-17 10:17] MED LIST changes: +ASPI-586 PO; +HYDR25TA4 PO; +INUL2TAB8 PO; +METO-387 PO
[2019-10-17] MEDS ORDERED: ACET325T38 PO (10:27)
[2019-10-17] MEDS ORDERED: ESCI20TA PO (10:27)
[2019-10-17] MEDS ORDERED: METO-370 PO (10:27)
[2019-10-17] MEDS ORDERED: FERR325T5 PO (10:27)
== END 2019-10-17 10:46 | disposition home or self-care (01) ==
LOC: PREOP 10:17
PROVIDERS: ATTEND Orthopaedic Surgery
DX: Z01.818 Encounter for other preprocedural examination (principal)

== ENCOUNTER 2019-10-24 07:24 | Day surgery (SDC) | payer MEDICARE ==
--- NOTE | 2019-10-11 15:20 | HISTORY AND PHYSICAL ---
DATE OF SERVICE: DATE OF ADMISSION: 10/24/2019. This will be for outpatient surgery on 10/24/2019 for right knee arthroscopy. HISTORY OF PRESENT ILLNESS: The patient is a 63-year-old female who had previously undergone right total knee arthroplasty with subsequent revision. She reports right knee pain, catching and locking. She denies instability. She denies new injuries. She reports that it feels like it catches from moving from flexion to extension. She denies feelings of patellar instability; however. Due to functional impairment and failure to improve with conservative measures, the patient elected to proceed with arthroscopy, understanding this may not fully alleviate her symptoms. REVIEW OF SYSTEMS: No chest pain, no shortness of breath, no dysuria. PAST MEDICAL HISTORY: Diabetes, hypertension, hypercholesterolemia, Crohn's, cirrhosis, anxiety disorder, depression, hypothyroidism, allergic rhinitis, iron deficiency, tension headache, osteoarthritis, sleep apnea, urinary incontinence. PAST SURGICAL HISTORY: Appendectomy, thyroidectomy, right total knee, left heel, hysterectomy, cholecystectomy, colon mass, right rotator cuff repair, cholecystectomy. FAMILY HISTORY: Significant for ischemic heart disease, hypertension. PRIMARY CARE PROVIDER: [facility]. MEDICATIONS: Lisinopril, Synthroid, sertraline, hydrochlorothiazide, melatonin, vitamin C, vitamin D, Zetia, cyanocobalamin, metoprolol. ALLERGIES: PENICILLIN, , TETANUS, ZOCOR, LIPITOR, DILAUDID, MORPHINE, NIACIN AND ADHESIVE TAPE. SOCIAL HISTORY: The patient denies alcohol, tobacco use. RADIOGRAPHS: Reveal no evidence of loosening of the total knee arthroplasty. PHYSICAL EXAMINATION: GENERAL: The patient is well developed, well-nourished, in no acute distress. HEENT: Normocephalic, atraumatic. Pupils are equal, round, reactive to light. Oropharynx is clear. NECK: Supple, no lymphadenopathy. LUNGS: Clear to auscultation bilaterally. HEART: Regular rate and rhythm. ABDOMEN: Soft, nontender, nondistended. EXTREMITIES: The right knee demonstrates 1+ anterior and posterior drawer. There is no varus valgus laxity. Patella tracks well. There is no gross effusion. There is mild crepitus with patellofemoral range of motion. Range of motion 0/0/115. IMPRESSION: Right knee adhesions. PLAN: Right knee arthroscopy with lysis of adhesions. The risks, benefits, options, ramifications and recovery have been discussed at length with the patient. She understands and wishes to proceed. Job ID: [id number] DocumentID: [id number] Dictated Date: 10/11/2019 14:58:19 Manufacturing Clerk Date: 10/11/2019 15:19:48 Dictated By: RONY SAMANIEGO MD
[~2019-10-24] VITALS: Ht 157 cm; Wt 141.8 kg
[2019-10-24] VITALS (10 sets, daily range): BP systolic 127–182; BP diastolic 66–92
[~2019-10-24 07:24] MED LIST changes: +ACET325T38 PO; +ESCI20TA PO; +EZET10TA17 PO; -EZET10TA5 PO; +FERR325T5 PO; -METO-387 PO; +METO50TA7 PO; +MTP25TSR PO
[2019-10-24] MEDS ORDERED: morphine PF (DURAMORPH) 10 MG/10 ML AMP ONE (07:44)
[2019-10-24] MEDS ORDERED: BUPIVACAINE 0.25% 30 ML (SENSORCAINE) VIAL ONE (07:44)
[2019-10-24] MEDS ORDERED: CLINDAMYCIN 600 MG/50 ML IVPB 50 ML IV ONE (07:45)
[2019-10-24] MEDS ORDERED: ONDANSETRON 4 MG/2 ML (SDV) Z0FRAN IV ONE (08:00)
[2019-10-24] MEDS ORDERED: ONDANSETRON 4 MG/2 ML (SDV) Z0FRAN ONE ×2 (08:03→08:05)
[2019-10-24] MEDS ORDERED: fentaNYL INJECTION 100 MCG/2 ML AMP ONE ×2 (08:05→10:06)
[2019-10-24] MEDS ORDERED: SEVOFLURANE (ULTANE) 15 ML INHAL SOLN ONE ×2 (08:05→09:42)
[2019-10-24] MEDS ORDERED: DEXAMETHASONE 10 MG/ML (DECADRON) 1 ML VIAL ONE (08:05)
[2019-10-24] MEDS ORDERED: proPOfol 200 MG/20 ML (DIPRIVAN) VIAL IV ONE (08:05)
[2019-10-24] MEDS ORDERED: LIDOCAINE PF 2% 5 ML (XYLOCAINE) VIAL ONE (08:05)
[2019-10-24] MEDS ORDERED: MIDAZOLAM 2 MG/2 ML (VERSED) VIAL ONE (08:05)
[2019-10-24] MEDS: LACTATED RINGERS 1,000 ML IV PRN ×2 (08:09→10:31)
--- NOTE | 2019-10-24 09:10 | Progress Note-Post Operative ---
Post-Operative Progess Note Surgeon (s)/User Experience Architect (s) Surgeon RONY SAMANIEGO MD User Experience Architect: Nate Ventura Pre-Operative Diagnosis right knee arthrofibrosis Post-Operative Diagnosis right knee arthrofibrosis Procedure & Operative Findings Date of Procedure 10/24/19 Procedure Performed/Findings right knee arthroscopic lysis of adhesions Anesthesia Type GETA Estimated Blood Loss Estimated blood loss (mL): minimal Specimens/Packing Specimens Removed none Packing: none RONY SAMANIEGO MD Oct 24, 2019 09:10
--- NOTE | 2019-10-24 09:10 | Progress Note-Pre Operative ---
Pre-Operative Progress Note H&P Reviewed The H&P was reviewed, patient examined and no changes noted. Date Seen by Provider: Oct 24, 2019 Time Seen by Provider: 09:09 Date H&P Reviewed: Oct 24, 2019 Time H&P Reviewed: 09:09 Pre-Operative Diagnosis: right knee arthrofibrosis RONY SAMANIEGO MD Oct 24, 2019 09:09
[2019-10-24] MEDS ORDERED: HYDROcodone/APAP 7.5 MG/325 MG (LORTAB, LORCET PLUS) TABLET PO PRN (09:15)
[2019-10-24] MEDS ORDERED: fentaNYL INJECTION 100 MCG/2 ML AMP IVP ONE (10:15)
[2019-10-24] MEDS ORDERED: HYDR-3816 PO (11:12)
--- NOTE | 2019-10-24 12:11 | Physical Therapy Ortho Eval ---
PT Orthopedic Evaluation Type of Surgery Knee Scope right; arthrofibrosis post TKR and TKR revision Prior Level of Function Current Living Status: Spouse Locomotion (Upon Admit): Straight Cane Established Durable Medical Eq: Straight Cane Subjective Subjective Reports she has used a cane and a walker previously. Reports she has done the exercises in the past. Entry Into Home: Stairs With Railing Steps Accessories: Railing Present Motor Control Motor Control: Motor Control WNL ROM ROM: WFL Strength Strength: WFL Transfer Transfers (B, C, W/C) (FIM): 6 Gait Gait Assistive Device: Cane Single Point Right Lower Extremity: Right Weight Bearing Status RLE: Weight Bearing/Tolerated Left Lower Extremity: Left Weight Bearing Status LLE: Full Weight Bearing Gait (FIM): 6 Distance (FIM): 3=150 ft Summary/Comments Pt demonstrated safe and steady gait with cane. Safe and steady. Treatment Rendered Treatment: Therapeutic Exercises, Gait Train Exercise Instruction: Quad Sets, Straight Leg Raise, Heel Slides Assessment/Goals Goal Time Frame: 1 Visit Understands HEP: Yes Safe Ambulation: Yes Plan Treatment Plan: Discharge PT/Family Agrees to Plan: Yes Time Time In: 1140 Time Out: 1200 Total Billed Treatment Time: 20 Billed Treatment Time visit EVL 20 GERRI JAVED PT Oct 24, 2019 12:11
--- NOTE | 2019-10-24 16:08 | OPERATIVE REPORT ---
DATE OF SERVICE: 10/24/2019 PREOPERATIVE DIAGNOSIS: Right knee adhesions status post total knee arthroplasty. POSTOPERATIVE DIAGNOSIS: Right knee adhesions status post total knee arthroplasty. PROCEDURE: Right knee arthroscopic lysis of adhesions. SURGEON: Vitaly Samaniego MD BOX BLANK MACHINE FEEDER: Nate Jade, who assisted throughout the procedure and closed the incisions. ANESTHESIA: General endotracheal by Tiara Villavicencio CRNA. TOURNIQUET TIME: Not . ESTIMATED BLOOD LOSS: Minimal. DRAINS: None. COMPLICATIONS: None. POSTOPERATIVE PLAN: Progressive activities as symptoms allow. The patient was transferred to the recovery room awake and stable condition. STATEMENT OF MEDICAL NECESSITY: The patient is a 63-year-old female who previously underwent a right total knee arthroplasty by outside physician. She complained of popping and catching in her knee. She tried rest, activity modifications, anti-inflammatories without relief. Due to functional impairment and failure to improve with conservative measures, the patient elected to proceed with surgical intervention. Examination under anesthesia revealed range of motion is 0/0/90. No varus valgus laxity. Negative anterior and posterior drawer. Arthroscopic findings demonstrated dense fibrosis throughout her medial and lateral gutters and anterior compartment. PROCEDURE: After risks and benefits of procedure were discussed and questions were answered, informed consent was signed and placed on chart. The operative site was confirmed and prepped initialed by the surgeon. The patient was transferred to the operating room. After adequate levels of general endotracheal anesthetic were obtained, a timeout was called, confirming the operative site. Examination under anesthesia was performed with the above findings. The right lower extremity was prepped and draped in the usual sterile fashion. Knee joint was injected with 60 mL of fluid and standard inferolateral portal was placed with the arthroscope under direct visualization, inferior medial portal was created. The inferior medial portal was created and diagnostic arthroscopy was carried out with the above findings noted. The fibrotic tissue was debrided with the shaver through both the inferolateral and inferior medial portals. This was very dense and was fully resected back to cowlitz tissue. The knee joint was copiously irrigated. Portal sites were closed with 4-0 nylon in simple interrupted fashion. The portal sites were infiltrated with plain Marcaine. A soft dressing was applied. The patient transferred to recovery room awake and in stable condition. Job ID: [id number] DocumentID: [id number] Dictated Date: 10/24/2019 10:00:05 Machine Shop Apprentice Date: 10/24/2019 16:07:19 Dictated By: VITALY SAMANIEGO MD
== END 2019-10-24 12:20 | disposition home or self-care (01) ==
LOC: SDC 07:24
PROVIDERS: ATTEND Orthopaedic Surgery
DX: T84.82XS Fibrosis due to internal orthopedic prosthetic devices, implants and grafts, sequela (principal); E11.9 Type 2 diabetes mellitus without complications; I10 Essential (primary) hypertension; E78.00 Pure hypercholesterolemia, unspecified; K50.10 Crohn's disease of large intestine without complications; F41.9 Anxiety disorder, unspecified; F32.9 Major depressive disorder, single episode, unspecified; E03.9 Hypothyroidism, unspecified; J30.89 Other allergic rhinitis; D50.9 Iron deficiency anemia, unspecified; M19.90 Unspecified osteoarthritis, unspecified site; G47.33 Obstructive sleep apnea (adult) (pediatric); G44.209 Tension-type headache, unspecified, not intractable; Z82.49 Family history of ischemic heart disease and other diseases of the circulatory system; E66.01 Morbid (severe) obesity due to excess calories; Z68.43 Body mass index [BMI] 50.0-59.9, adult; Z90.710 Acquired absence of both cervix and uterus; Z90.49 Acquired absence of other specified parts of digestive tract; Z79.899 Other long term (current) drug therapy; Z88.0 Allergy status to penicillin; Z88.7 Allergy status to serum and vaccine; Z88.5 Allergy status to narcotic agent; Z88.1 Allergy status to other antibiotic agents; Z91.048 Other nonmedicinal substance allergy status; Z88.8 Allergy status to other drugs, medicaments and biological substances
CPT/HCPCS: 87081

== ENCOUNTER 2020-03-16 11:32 | Emergency (ER) | payer MEDICARE ==
[~2020-03-16] VITALS: Ht 157.4 cm; Wt 148.0 kg
[~2020-03-16 11:32] MED LIST changes: -HYDR-3062 PO
--- OUTSIDE RECORDS SUMMARY | 2020-03-16 11:38 | XMS REPORT | Encounter Summary ---
Author Author [facility] Organization [facility] Address Unknown Phone Unavailable Care Team Providers Care Health Promotion Specialist Name Role Phone GonzaloMillera DO Unavailable Lona Vega MD PCP Hernandez Najera MD [id number] Jessy Montgomery MD [id number] Vitaly Noriega MD [id number] Reason for Referral * Radiology Services (Routine) Referred By Contact Referred To Contact Status Reason Specialty Diagnoses / Procedures Gely Durham), INTELLIGENCE GROUP SUPERVISOR-PHYSICIST [facility] [address] [address] New Request Radiology Diagnoses Cirrhosis of liver without ascites, unspecified hepatic cirrhosis type (HCC) MACHUCA (nonalcoholic steatohepatitis) Morbid obesity with BMI of 50.0-59.9, adult (HCC) Portal hypertension (HCC) Healthcare maintenance P rocedures CT ABDOMEN WO/W CONTRAST Reason for Visit * Reason Comments Cirrhosis Encounter Details Care Team Description Date Type Department Gely Durham), INTELLIGENCE GROUP SUPERVISOR-PHYSICIST [facility] [address] [address] [phone] Cirrhosis of liver without ascites, unsp ecified hepatic cirrhosis type (HCC) (Primary Dx); MACHUCA (nonalcoholic steatohepatitis); Morbid obesity with BMI of 50.0-59.9, adult (HCC); Portal hypertension (HCC); Healthcare maintenance; Vitamin D deficiency; Essential hypertension; Other hyperlipidemia; Colitis; Depression, unspecified depression type 11/27/2019 Office Visit [facility] [address] [address] Social History Date Tobacco Use Types Packs/Day Years Used Never Smoker Smokeless Tobacco: Never Used Tobacco Cessation: Counseling Given: Yes Drinks/Week oz/Week Comments Alcohol Use rarely . Drinks beer every couple of months No Sex Assigned at Date Recorded Not on file Industry Job Start Date Occupation Not on file Not on file Not on file Travel End Travel History Travel Start No recent travel history available. documented as of this encounter Last Filed Vital Signs Reading Time Taken Comments Vital Sign 118/54 11/27/2019 1:06 PM [employer]ER[employer] Blood Pressure 72 11/27/2019 1:06 PM P[employer]ERING [employer]OR Pulse 36.2 C (97.2 F) 11/27/2019 1:06 PM PLASTERING [employer]OR Temperature 18 11/27/2019 1:06 PM PLASTERING CONTRACTOR Respiratory Rate 96% 11/27/2019 1:06 PM PLASTERING [employer]OR Oxygen Saturation - - Inhaled Oxygen Concentration 141.5 kg (312 lb) 11/27/2019 1:06 PM PLASTERING [employer]OR Weight 157.5 cm (5' 2") 11/27/2019 1:06 PM PLASTERING [employer]OR Height 57.07 11/27/2019 1:06 PM PLASTERING CONTRACTOR Body Mass Index documented in this encounter Functional Status Date of Assessment Functional Status Response 11/27/2019 Does the patient have a hearing impairment: No 11/27/2019 Does the patient have a visual impairment: Yes 11/27/2019 Does the patient have impaired ambulation: Yes 11/27/2019 Does the patient have an activity of daily living No (ADL) impairment: 11/27/2019 Does the patient have an instrumental activity of No daily living (IADL) impairment: Date of Assessment Cognitive Status Response 11/27/2019 Does the patient have a cognitive impairment: No documented as of this encounter Patient Instructions * Patient Instructions* Chichi Neves LPN - 11/27/2019 1:30 PM PLASTERING CONTRACTOR Scheduling Points Labs today Schedule next clinic appt with Dr. Montgomery in 6 months and Alyssa [address] in 6 months Things to Remember Your MELD SCORE is a numerical scale, ranging from 6 (healthy/less ill) to 40 (gravely ill), used for liver transplant candidates and also to know how healthy or sick your liver is. A patients score may go up or down over time depending on the status of your liver. Your May 2019 MELD Score was "7", which is good. We don't talk transplant evaluation until a score reaches over 15. We will get labs today to monitor your liver enzymes and we'll call you with results and recommendations, as well as an updated MELD score. We will call you with your US results. We will get imaging every 6 months to continue to screen for liver cancer. With Cirrhosis, it places you at a greater risk for developing liver cancer. Continue weight loss efforts and exercise. Victoza does help, but exercise wi ll also help in combination. If you lean towards, weight loss surgery, please ca ll us first for surgeon recommendations and clearance. We would like for you to follow a low sodium diet, no more than 2,000mg daily . Try to avoid fast food, frozen foods and processed foods. We also would like f or you to increase the lean protein in your diet (fish, lean red meat, turkey an d chicken). You may also try to incorporate protein drinks like boost, ensure or carnation instant breakfast. We suggest Tylenol for pain, no more than 2,000mg daily. Avoid all NSAIDS, Ib uprofen, Advil, Aleve and Naproxen, due to the risk it can cause your kidneys. You are due for a Bone Density Screening. Follow up with PCP for ordering. Things To Look For: Abdominal swelling/distension, juandice, swelling in legs , please call the office. Vomiting blood, dark/tarry/bloody stools, go straight to the ER!! Please Don't hesitate to call with problems or concerns BINDU Bradford RN Dr. Jennifer Haglund Cherie Morley,INTELLIGENCE GROUP SUPERVISOR [phone] Nonalcoholic Fatty Liver Disease (NAFLD) Nonalcoholic fatty liver disease (NAFLD) is a common disease of the liver. It oc curs when you have too much fat in the liver. If NAFLD is severe, it can cause l iver damage that seems like the damage caused by drinking too much alcohol. But NAFLD is not caused by drinking alcohol. This sheet tells you more about NAFLD a nd how it can be managed. How the liver works The liver is an organin the upper right side of the belly (abdomen). It has ma ny important jobs. These include: Breaking down (metabolizing) proteins, carbohydrates, and fats Making a substance called bile that helps break down fats Storing and releasing sugar (glucose) into the blood to give the body energy Removing toxins from the blood Helping with blood clotting Understanding NAFLD A healthy liver may contain some fat. But if too much fat builds up in the liver , this causes NAFLD. NAFLD can be mild, causing fatty liver. Or it can be more s evere and show inflammation, as well as the fat. This can cause non-alcoholic st eatohepatitis (MACHUCA). Fatty liver. With fatty liver, the liver simply has more fat than normal. Thi s extra fat usually does not harm the liver. MACHUCA. With MACHUCA, the fatty liver becomes inflamed over time. MACHUCA is serious because it can lead to scarring of the liver (fibrosis).Over time, the scarrin g may lead to cirrhosis of the liver. This can eventually cause liver failure or liver cancer. Causes and risk factors of NAFLD Doctors don't know what causes NAFLD. But certain thingsmake the problem more likely to happen. These include: Obesity Prediabetes or diabetes High levels of fat found in the blood (cholesterol and triglycerides) Being exposed to certain medicines Symptoms of NAFLD Most people with NAFLD have no symptoms. If symptoms do occur, they can include: Tiredness Weakness Weight loss Loss of appetite Nausea and vomiting Belly pain and cramping Yellowing of the skin and eyes (jaundice), as well as dark urine, or light-co lored stools Swelling in the belly or legs Diagnosing NAFLD Your healthcare providermay think you have NAFLD if routine blood tests show high levels of liver enzymes. This may mean you havea liver problem. You may n eed one or more imaging tests, such as an ultrasound, CT, or MRI. You may need m oreblood tests to look for other causes of liver disease.You may also need a liver biopsy. During this test, a hollow needle is used to remove a tiny tissue sample from your liver. This tissue is then checked in a lab. This test can find signs of damage to liver tissue. It can also help figure out the cause of the damage and tell the difference between fatty liver and MACHUCA. Treating NAFLD Treatment for NAFLD varies for each person. The best early treatment is to treat any underlying conditions causing metabolic syndrome. This is the name for a gr oup of conditions that includes: High blood pressure High levels of cholesterol and triglycerides Being overweight or obese Diabetes Your healthcare provider will monitor your health and treat any symptoms or unde rlying health problems you have. Your provider will also work with you to contro l your risk factors. This will make liverdamage less likely. In fact, treating those underlying conditions can often improve liver disease.You may need to t hung certain medicines, but no medicine will cure NAFLD. This is why treating the underlying conditions is most important. Your plan may include: Losing extra weight Getting regular exercise Controlling diabetes and high cholesterol or triglyceride levels Taking medicines and vitamins as prescribed by your provider Quitting smoking Not drinking alcohol Eating a healthy and balanced diet Living with NAFLD If NAFLD is caught early, it can be managed with treatment. Your healthcare prov ider will discuss further treatment choices with you as needed. Be sure to ask your provider about recommended vaccines. These include vaccines for viruses that can cause liver disease. [employer] last reviewed this educational content on 09/09/201619998437-5130 [employer]. [address] [place] [address] 7. All rights reserved. This information is not intended as a substitute for pro fessional medical care. Always follow your healthcare professional's instruction s. TERING CONTRACTOR documented in this encounter Progress Notes * Gely Durham APRN - 11/27/2019 1:30 PM PLASTERING CONTRACTOR Date of Service: 11/27/2019 Subjective: Swathi Cummins is a 63 y.o. female. History of Present Illness Mrs. Swathi Cummins is a pleasant 63 year old female who presents today for a 6 m [facility] follow up. As you know, Mrs. Swathi Cummins follows with our clinic for madeline mcbride of her cirrhosis, biopsy proven, secondary to MACHUCA. She does remain we ll compensated at this time. Comorbidities for include CD (previously on ASA, 6-MP and Humira, s/p ~116cm bowel resection), IBD, morbid obesity, HLP, HTN, DM, iron deficiency, and hypothyroidism. Since last being seen, Mrs. Swathi Cummins reports doing quite well. She reports her palpitations have improved with the addition of metoprolol. We are aware tori braga has been evaluated for heart disease with a LHC completed and was found to be negative for any cardiac complications. As for her chronic ongoing GI issues, she reports they have not changed. She states she continues to have diarrhea an d has an upcomming visit with GI in January 2020. When reviewing her BMs, she adm its they have turned darker in color, almost black, over the past 2 weeks. She does report it may have started around the time she was started on Victoza. She denies any overt signs of bleeding and has had an updated EGD in August 2019 with no varices noted. She otherwise reports no questions or concerns. She den ies any hospitalizations or ER visits. In discussing Mrs. Swathi Cummins' liver disease, we find she remains well compen sated at this time. She continues to deny any symptoms suggestive of HE. She r eports no episodes of hematemesis, melena, or hematochezia. When reviewing her volume status, Mrs. Cummins continues to report no ascites or edema. She is up-to- date on HCC screening as well with a recent abdominal imaging completed today. Today, Mrs. Swathi Cummins reports no abdominal pain, nausea, vomiting, hematemes is, melena, hematochezia, fevers, chills, fatigue, or unexpected weight loss. Tori braga does report diarrhea, however states it is unchanged from her baseline. As for her comorbiditities, we find she does continue to follow closely with her PCP and other specialists for management. We see she has been started on Victo za by her PCP with almost 10 pounds of weight loss thus far. She hopes to rhona nue this weight loss. She denies any chest pain, chest pressure or SOB. 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 [facility] 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 Health Maintenance: Colonoscopy- April 2018 EGD- August 2019 Influenza- 2018 BMD- December 2017, normal Review of Systems A complete 10 point review of systems was negative except those listed in the HP I. Objective: Current Medications: Instructions acetaminophen (TYLENOL) 500 mg tablet Take 500 mg by mouth daily as needed for Pain. Max of 2,000 mg of acetaminophen in 24 hours. ascorbic acid (vitamin C) (VITAMIN-C) 250 mg tablet Take 250 mg by mouth daily. Cholecalciferol (Vitamin D3) (VITAMIN D-3) 2,000 unit cap Take 2,000 capsules b y mouth twice daily. cyanocobalamin (VITAMIN B-12, RUBRAMIN) 1,000 mcg/mL injection Inject 1,000 mcg to area(s) as directed every 30 days. escitalopram oxalate (LEXAPRO) 20 mg tablet Take 20 mg by mouth daily. Indicati ons: major depressive disorder ezetimibe (ZETIA) 10 mg tablet Take 10 mg by mouth daily. ferrous sulfate (FEOSOL, FEROSUL) 325 mg (65 mg iron) tablet Take 325 mg by tomas th daily. Take on an empty stomach at least 1 hour before or 2 hours after food. levothyroxine (SYNTHROID) 100 mcg tablet Take 100 mcg by mouth daily. liraglutide (VICTOZA) 0.6 mg/0.1 mL (18 mg/3 mL) injection pen Inject 1.2 mg un mindy the skin daily. lisinopril (PRINIVIL, ZESTRIL) 40 mg tablet Take 40 mg by mouth daily. loperamide (IMODIUM A-D) 2 mg capsule Take 2 mg by mouth as Needed for Diarrhea . Take 2 capsules by mouth initially, followed by 1 capsule by mouth after each loose stool up to a maximum of 8 tablets in 24 hours. loratadine (CLARITIN) 10 mg tablet Take 10 mg by mouth every morning. melatonin 5 mg tab Take 5 mg by mouth at bedtime daily. metoprolol XL (TOPROL XL) 50 mg extended release tablet Take 50 mg by mouth karrie ly. Vitals: 11/27/19 1306 BP: 118/54 BP Source: Arm, Left Upper Patient Position: Sitting Pulse: 72 Resp: 18 Temp: 36.2 C (97.2 F) TempSrc: Oral SpO2: 96% Weight: (!) 141.5 kg (312 lb) Height: 157.5 cm (62") PainSc: Zero Body mass index is 57.07 kg/m. Physical Exam Vitals reviewed. Constitutional: Patient appears energized, well-developed, well-nourished, in no apparent distress. Responds appropriately to questions. Morbidly obese Neuro: No tremor noted. Patient is AOx4. No asterixis. HEENT: Head is normocephalic and atraumatic. No scleral icterus noted. Conjun ctiva pink and moist. EOM normal & PERRLA. Oral mucosa pink and moist. No gingival hyperplasia, Charlette, or oral lesions noted. Dentition is intact. Neck and Lymph: Normal ROM. Neck supple. No thyromegaly. No lymphadenopathy. N o JVD Cardiac: S1 and S2, regular rate and rhythm. No appreciable murmurs or rubs. Respiratory: lung sounds clear to auscultation bilaterally. No wheezes or crac kles. GI: Abdomen soft, round, non-distended, non-tender. BS present. No clinically e vident ascites. No hernia. Liver and spleen not palpable due to body habitus. Skin: Skin is warm, dry, and intact. No rash noted. Nails show no clubbing. No jaundice. No spider nevi on upper torso. Peripheral Vascular: No lower extremity edema. Musculoskeletal: ROM intact. Psychiatric: Normal mood and affect. Behavior is normal. Judgment and thought co ntent normal. Labs: CBC w diff Lab Results Component Value Date/Time WBC 5.7 08/14/2019 01:08 PM RBC 4.22 08/14/2019 01:08 PM HGB 13.7 08/14/2019 01:08 PM HCT 39.6 08/14/2019 01:08 PM MCV 93.8 08/14/2019 01:08 PM MCH 32.5 08/14/2019 01:08 PM MCHC 34.6 08/14/2019 01:08 PM RDW 13.6 08/14/2019 01:08 PM PLTCT 110 (L) 08/14/2019 01:08 PM MPV 7.9 08/14/2019 01:08 PM Lab Results Component Value Date/Time NEUT 63 06/06/2019 04:28 PM ANC 3.80 06/06/2019 04:28 PM LYMA 23 (L) 06/06/2019 04:28 PM ALC 1.40 06/06/2019 04:28 PM CRISTHIAN 8 06/06/2019 04:28 PM AMC 0.50 06/06/2019 04:28 PM EOSA 5 06/06/2019 04:28 PM AEC 0.30 06/06/2019 04:28 PM BASA 1 06/06/2019 04:28 PM ABC 0.00 06/06/2019 04:28 PM Comprehensive Metabolic Profile Lab Results Component Value Date/Time NA 142 08/14/2019 01:08 PM K 3.6 08/14/2019 01:08 PM CL 111 (H) 08/14/2019 01:08 PM CO2 23 08/14/2019 01:08 PM GAP 8 08/14/2019 01:08 PM BUN 14 08/14/2019 01:08 PM CR 0.60 08/14/2019 01:08 PM GLU 168 (H) 08/14/2019 01:08 PM GLU 120 (H) 05/11/2019 11:03 AM Lab Results Component Value Date/Time CA 9.4 08/14/2019 01:08 PM PO4 2.8 05/22/2018 05:35 AM ALBUMIN 3.6 05/11/2019 11:03 AM TOTPROT 6.3 05/11/2019 11:03 AM ALKPHOS 62 05/11/2019 11:03 AM AST 30 05/11/2019 11:03 AM ALT 19 05/11/2019 11:03 AM TOTBILI 0.9 05/11/2019 11:03 AM GFR >60 08/14/2019 01:08 PM GFRAA >60 08/14/2019 01:08 PM MELD-Na score: 7 at 05/11/2019 11:03 AM MELD score: 7 at 05/11/2019 11:03 AM Calculated from: Serum Creatinine: 0.61 mg/dL (Rounded to 1 mg/dL) at 05/11/2019 11:03 AM Serum Sodium: 142 mmol/L (Rounded to 137 mmol/L) at 05/11/2019 11:03 AM Total Bilirubin: 0.9 mg/dL (Rounded to 1 mg/dL) at 05/11/2019 11:03 AM INR(ratio): 1.1 at 05/11/2019 11:03 AM Age: 63 years 10/13/2017 15:57 Anti-Mitochondrial Screen <20 YA Screen SEE TITER YA Titer/Pattern 160 (H) Anti-Smooth Muscle Screen <20 Alpha 1 Anti-Trypsin 148 07/29/2017 15:51 09/28/2017 12:50 10/13/2017 15:57 Hepatitis A IGG NEG... Hepatitis A IgM NEG Anti HBc Total NEG Anti HBs <2.5 HBsAg NEG Anti HCV NEG 05/11/2019 11:03 Alpha Feto Protein 4.4 05/01/2018 12:41 Vitamin D(25-OH)Total 25.7 (L) Diagnostic tests: Liver biopsy (October 19, 2017): Mildly active steatohepatitis with 10% steatosis (SHARON 3/8). Cirrhosis (stage 4/4). Comment: The histopathological changes are most consistent with active steatohepatitis, a lthough other causes of liver injury should be clinically and serologically excluded. Steatohepatitis is a nonspecific patter n of injury seen most commonly with morbid obesity, diabetes, insulin resistance, and alcohol abuse. However, it can also be associated with nutritional causes, metabolic disorders or the result of certain medications. There is no evidence of cholestasis or bile duct injury. ACTIVITY SCORE (SHARON): Steatosis: 1 (5-33%) Lobular Inflammation: 1 (< 2foci/200x) Hepatocyte Balloonin (few ballooned hepatocytes) Total: 3/8 FIBROSIS: 4 Cirrhosis Hepatic venography with indirect portal pressure measurements (October 2017): 1. The right hepatic vein is normal in caliber and appearance. 2. The free hepatic pressure measured 15 mmHg and the wedged hepatic pressure me asured 29 mmHg. This results in a corrected sinusoidal pressure of 14 mmHg and is consistent with portal hypertension. 3. The specimens appeared adequate. 4. The right internal jugular vein is ultrasonographically patent and compresses . Needle entry was documented. EGD (August 2019) - The Z-line was regular and was found 37 cm from the incisors. - There is no endoscopic evidence of varices in the distal esophagus. - Mild portal hypertensive gastropathy was found in the entire examined stomach. - The cardia and gastric fundus were normal on retroflexion. - There is no endoscopic evidence of varices in the entire examined stomach. - The examined duodenum was normal. Colonoscopy (April 2018) The perianal and digital rectal examinations were normal. A moderate amount of s kashmir-liquid stool was found in the entire colon, making visualization difficult. Lavage of the area was performed using a large amount of tap water, resulting in clearance with fair visualization. The colon (entire examined portion) appeared normal. The ileum, 5 cm from the il eocecal anastomosis, margarito-terminal ileum and ileal surgical anastomosis contained a few three mm ulcers. No bleeding was present. No stigmata of recent bleeding were seen. Biopsies were taken with a cold forceps for histology. Verification o f patient identification for the specimen was done. Estimated blood loss was min imal. The ileal surgical anastomosis contained a benign-appearing, intrinsic mild sten osis measuring less than one cm (in length) x 9 mm (inner diameter) that was tra versed. Biopsies were taken with a cold forceps for histology. Verification of p atient identification for the specimen was done. Estimated blood loss was minima l. The retroflexed view of the distal rectum and anal verge was normal and showed n o anal or rectal abnormalities. Imaging: Results for orders placed during the hospital encounter of 06/07/19 CT ENTEROGRAPHY Impression 1. Prior ileocecectomy and ileocolic anastomosis. No bowel obstruct ion or intra-abdominal fluid collection. Improvement in the fat stranding adjace nt to the anastomosis. 2. No focal short segment mural thickening with adjacent stranding or hyperenha ncement to suggest active inflammatory bowel disease. 3. Cirrhotic liver morphology with findings of portal hypertension, mild spleno megaly, and portosystemic varices . Approved by Tomas Starr M.D. on 06/07/2019 2:24 PM By my electronic signature, I attest that I have personally reviewed the images for this examination and formulated the interpretations and opinions expressed i n this report Finalized by Morris Clark M.D. on 06/07/2019 4:06 PM. Dictated by Tomas dickerson M.D. on 06/07/2019 1:37 PM. Abdominal US (November 2019): The liver measures 18.7 cm compared to 18.0 cm on the previous study. The liver is diffusely heterogeneous. Discrete hepatic mass is not identified. There is no intrahepatic or extrahepatic biliary ductal dilatation. The extrahepatic common duct measures 0.5 cm. The gallbladder is surgically absent. The pancreas, where visualized, appears normal in size. It is partially obscured by overlying bowel gas. The right kidney measures 11.2 cm in length. The left kidney measures 11.0 cm in length. The kidneys are partially obscured by bowel gas. No hydronephrosis is i dentified. The bladder is grossly unremarkable. The spleen is mildly enlarged measuring 15.8 cm. This compares to 16.8 cm previo usly. There is no abdominopelvic ascites noted. The partially visualized abdominal aorta is normal in caliber. It is largely obs cured by bowel gas. The main portal vein velocity is 22-29 cm/sec. The right portal vein velocity is 27 cm/sec. The left portal vein velocity is 12-13 cm/sec. The IVC has normal pulsatility and flow. The hepatic veins show normal flow with pulsatility. The resistive index of the proper hepatic artery is 0.71. The splenic vein shows normal direction of flow at the hilum and in midline. IMPRESSION 1. Liver mildly enlarged with cirrhotic morphology. Ultrasound LI RADS: US-1 n egative. US visualization score C. 2. Patent hepatic vasculature with normal direction of flow. 3. Persistent mild splenomegaly. 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 - We find her most recent MELD stable at 7 as of May 2019. We discussed mitch lisa that with a low MELD and continued clinical stability, proceeding with a liver transplant evaluation is not yet indicated. Additionally, we reviewed barriers to transplant at this time including her BMI. She again verbalizes kenji gilman. - For now, we will continue to manage complications related to her liver disease accordingly - When reviewing the management of fatty liver disease, it was again discussed a nd stressed the importance of an appropriate diet, exercise and weight loss - The patient should exercise regularly 3-4 times per week, with an average of a bout 30-45 minutes per session. The patient should be on low-carbohydrate, low-c alorie diet (1500 calories per day). We discussed a goal of losing 15 pounds by her next OV - Reviewed with that it has been shown that patients who exercise regul da can have improvement in DM management and stability in her liver disease, e indira if they are not able to lose weight. - Diabetes management is critical with ideal goal Hgb A1c goal of =/< 7%. She does follow with her PCP for management and we will follow along - We encourage to continue to be aggressive with hyperlipidemia and elevated tri glycerides management as well, and continue with statins if indicated as they ar e safe in patients with fatty liver disease. - Given her liver disease, we again reviewed no alcohol use is permitted as this may contribute to further complications. - We encourage liberalizing coffee and black tea consumption as some data has sh own this may slow progression and reverse effects of MACHUCA-related fibrosis - MELD labs to be obtained today and to continue every 6 months Liver transplant candidacy: - Not indicated at this time given her low MELD and clinical stability. We revi ewed the MELD score once again, in addition to liver transplantation and evaluat ion here at the [facility]. Discussed with Mrs. Cummins that with a low MELD, proceeding with evaluation is not yet indicated. - We also discussed with Mrs. Cummins that at this time, she is not a candidate for a liver transplant, should she need one. We again discussed given her weight a nd BMI > 50, proceeding with surgery is high risk and she is not yet considered a candidate. To be considered for a liver transplant at our center, should she need one, we discussed her BMI must be <40. She verbalizes understanding HCC Screening: - Secondary to cirrhosis, she is at risk for developing HCC. As a result, we wi ll proceed with HCC screening. - Recommend screening for HCC with either abdominal ultrasound or alternating ab dominal ultrasound with a triple phase CT of the abdomen with IV contrast OR MRI of the abdomen with IV contrast every 6 months. - Last abdominal imaging was done today with no hepatic lesions noted, although poor visualization. Will plan for a CT scan, [facility] - AFP needed every 6 months to be done at time of imaging screen. We will obtai n a value with labs. - Reminded that should she develop any new onset, unexpected weight los s, she is to notify the office for review. Hepatic encephalopathy: - Today, she continues to exhibit no signs of HE. No interventions needed for n ow. - Reminded her to be mindful for any signs of confusion/fogginess in thinking, w orsening malaise, or tremors that may suggest the development of HE. Should thi s occur, she is to notify the office for review. Portal hypertension with risk for esophageal varices: - Last EGD was done August 2019 with no EV noted. - Repeat EGD in 2 years. We will of course repeat it sooner if clinically indic ated. Will await results of today's labs - If there is any evidence of medium/large esophageal varices, we would recommen d esophageal varix band ligation, or the initiation of a non-selective beta-bloc ker (carvedilol or propranolol). If band ligation is performed, please continue to repeat (~ every 4-6 weeks) until eradication of varices. - Reminded that should she have any episodes of hematemesis or melena, she should proceed to the ER immediately. Ascites/Edema: - Currently presents euvolemic, off all diuretics. No interventions needed - Encouraged her to adhere to a low sodium diet <2 grams/day, with high amounts of lean protein (see below for details). - Should she have any new onset ascites, edema, or weight gain, she is to notify the office for review. - We did offer for her to meet with our dietitian to review appropriate diet shanika ns as well, however she states she is aware of the changes she needs to make and will hold off for now. Nutrition: - For patients with cirrhosis, it is very important to eat the right types and a trent of foods. We recommend a diet low in carbohydrates/sugars and high in fr esh fruits/vegetables, with the lean proteins; such as eggs, fish, chicken, nuts , and legumes. We typically recommend 1.2-1.5gm/kg/day of protein, or 75-100 gr ams of protein every day. - Discussed the need to minimize the intake of carbohydrates and sugars as well to avoid obesity. - should eat at least three meals a day and three to four snacks betwee n meals - Bedtime snacks are especially important (preferably something with some protei n) - Please avoid eating raw seafood, especially shellfish, because of risk of seri ous illness Morbid Obesity: - As discussed above, stressed the importance of weight loss and management. Sh e is to cut back on dietary intake, monitor her food choices and increase physic al activity (see above for further details). - Additionally started on Victoza by her PCP. She plans to see them in the next few weeks for follow up (1 month into treatment) and we will follow along. DM: - Previously managed with dietary adjustments, however now on Victoza. She does follow with her PCP and we will follow along. HTN: - Today, we do find her BP appropriate. No adjustments to therapy for now. - Again, stressed the importance of a low sodium diet with appropriate exercise. - Encourage her to monitor her BP at home. Should she find it elevated, she is to notify her PCP for review. HLP: - Managed by her PCP with [facility]. She is to continue following with them as we f gilson along. Bone Health/Vitamin D deficiency - Secondary to cirrhosis, is at risk for Vitamin D deficiency and devel oping osteopenia/osteoporosis. We will continue to monitor for changes. - Last Vitamin D level assessed in April 2018 and noted to be low. Repeat level to be done with next labs; interventions to follow. - Last BMD done in December 2017 with a normal BMD found; repeat due sometime this year. She plans to arrange this with her PCP. Colitis/CD (?): - She does follow with GI and Dr. Mendez for management and will continue to cristal riggins with them as we follow along. - With her reports of darker almost black stools, discussed potentially needing repeat endoscopy if we see hgb drop Depression - Currently controlled with use of lexapro with adequate control. This is manag ed by her PCP and she is to continue following with them for management. - We will follow along and encouraged to reach out should her mood mullins ge or worsen Health maintenance - We recommend vaccination for hepatitis A and B. This can be done with her PCP as well. - Encourage yearly influenza vaccine - Encouraged her to continue with annual mammograms for surveillance - All patients with cirrhosis should avoid the use of Non-steroidal Anti-Inflamm atory (NSAID) medications as they can cause significant injury to the kidneys in this population. If needed, you may use Tylenol PRN, no more than 2g/day. - Reminded that should she have any hospitalizations or ER visits, she is to notify the office as well. - Discussed that if any elective surgeries are needed, we would recommend first reviewing with the clinic first, given her liver disease. Follow-up: She is to return to [facility] in 6 months to meet with Dr. Derik pollard and myself in 1 year. As always, she may come sooner if a problem arises. I am grateful for the opportunity to participate in the care of this patient. I f you have any further questions, please don't hesitate to contact our office. TERRI [facility] [email or web address] O- [phone] P- [phone] TERING CONTRACTOR documented in this encounter Plan of Treatment Order Schedule Name Type Priority Associated Diag noses Expected: 05/27/2020 (Approximate), Expi res: 05/27/2021 CT ABDOMEN WO/W CONTRAST Imaging Routine Cirrh osis of liver without ascites, unspecified hepatic cirrhosis type (HCC) MACHUCA (nonalcoholic steatohepatitis) Morbid obesity with BMI of 50.0-59.9, adult (HCC) Portal hypertension (HCC) Healthcare maintenance documented as of this encounter Results * 25-OH VITAMIN D (D2 + D3) (11/27/2019 1:59 PM PLASTERING CONTRACTOR) Vitamin 30.0 30 - 80 NG/ML MAIN LAB D(25-OH)Total Specimen Blood Performing Organization Address [facility] Ph one Number MAIN LAB [address] [place] [address] * ALPHA FETO PROTEIN (AFP) (11/27/2019 1:59 PM PLASTERING CONTRACTOR) Alpha Feto 4.0 0.0 - 15.0 NG/ML MAIN LAB Protein Specimen Blood Performing Organization Address [facility] Ph one Number MAIN LAB [address] [place] [address] * PROTIME INR (PT) (11/27/2019 1:59 PM PLASTERING CONTRACTOR) INR 1.3 (H) 0.8 - 1.2 MAIN LAB Specimen Blood Performing Organization Address [facility] Ph one Number MAIN LAB [address] [place] [address] * COMPREHENSIVE METABOLIC PANEL (11/27/2019 1:59 PM PLASTERING CONTRACTOR) Sodium 140 137 - 147 MMOL/L [facility] MAIN [facility] Potassium 3.5 3.5 - 5.1 MMOL/L [facility] MAIN [facility] Chloride 104 98 - 110 MMOL/L [facility] MAIN [facility] Glucose 247 (H) 70 - 100 MG/DL [facility] MAIN [facility] Blood Urea 19 7 - 25 MG/DL [facility] MAIN [facility] Nitrogen Creatinine 0.80 0.4 - 1.00 MG/DL [facility] MAIN [facility] Calcium 10.5 8.5 - 10.6 MG/DL [facility] MA[facility] Total Protein 6.3 6.0 - 8.0 G/DL [facility] MA[facility] Total Bilirubin 1.6 (H) 0.3 - 1.2 MG/DL [facility] MAIN [facility] Albumin 3.7 3.5 - 5.0 G/DL [facility] MAIN [facility] Alk Phosphatase 66 25 - 110 U/L [facility] MA[facility] AST (SGOT) 32 7 - 40 U/L [facility] CO2 29 21 - 30 MMOL/L [facility] ALT (SGPT) 28 7 - 56 U/L [facility] Anion Gap 7 3 - 12 [facility] MA[facility] eGFR Non >60 >60 mL/min [facility] Comment: [place] The eGFR is not validated f or use in drug dosing adjustments. Continue to use estimated creatinine clearance per dosing reference text. Please contact the Clinical Pharmacist for questions. eGFR >60 >60 mL/min [facility] MAIN [facility] [place] Comment: The eGFR is not validated for use in drug dosing adjustments. Continue to use estimated creatinine clearance per dosing reference text. Please contact the Clinical Pharmacist for questions. Specimen Blood Performing Organization Address City/State/Zipcode Ph one Number [facility] MAIN LAB [address] [place] [address] * CBC AND DIFF (11/27/2019 1:59 PM PLASTERING CONTRACTOR) White Blood 7.3 4.5 - 11.0 K/UL [facility] MAIN [facility] Cells RBC 4.42 4.0 - 5.0 M/UL [facility] Hemoglobin 14.3 12.0 - 15.0 GM/DL [facility] Hematocrit 41.6 36 - 45 % [facility] MCV 94.3 80 - 100 FL [facility] MCH 32.5 26 - 34 PG [facility] MCHC 34.4 32.0 - 36.0 G/DL [facility] RDW 12.9 11 - 15 % [facility] Platelet Count 130 (L) 150 - 400 K/UL [facility] MPV 8.1 7 - 11 FL [facility] Neutrophils 62 41 - 77 % [facility] Lymphocytes 23 (L) 24 - 44 % [facility] Monocytes 6 4 - 12 % [facility] Eosinophils 8 (H) 0 - 5 % [facility] Basophils 1 0 - 2 % [facility] Absolute 4.50 1.8 - 7.0 K/UL [facility] Neutrophil Count Absolute Lymph 1.70 1.0 - 4.8 K/UL [facility] Count Absolute 0.40 0 - 0.80 K/UL [facility] Monocyte Count Absolute 0.60 (H) 0 - 0.45 K/UL [facility] Eosinophil Count Absolute 0.10 0 - 0.20 K/UL [facility] Basophil Count Specimen Blood Performing Organization Address City/State/Zipcode Ph one Number [facility] MAIN [facility] [address] [place] [address] documented in this encounter Visit Diagnoses Diagnosis Cirrhosis of liver without ascites, uns pecified hepatic cirrhosis type (HCC) MACHUCA (nonalcoholic steatohepatitis) Other chronic nonalcoholic liver diseas e Morbid obesity with BMI of 50.0-59.9, a dult (HCC) Morbid obesity Portal hypertension (HCC) Portal hypertension Healthcare maintenance Routine general medical examination at a health care facility Vitamin D deficiency Unspecified vitamin D deficiency Essential hypertension Unspecified essential hypertension Other hyperlipidemia Colitis Other and unspecified noninfectious gas troenteritis and colitis Depression, unspecified depression type documented in this encounter
--- OUTSIDE RECORDS SUMMARY | 2020-03-16 11:38 | XMS REPORT | Encounter Summary ---
Author Author [facility] Organization [facility] Address Unknown Phone Unavailable Care Team Providers Care Processing Engineer Name Role Phone Lucrecia Sánchez DO Unavailable Lona Vega MD PCP Hernandez Najera MD [id number] Jessy Montgomery MD [id number] Vitaly Noriega MD [id number] Encounter Details Care Team Description Date Type Department Jessy Montgomery MD [address] [facility] [id number] [place] [address] 11/27/2019 [facility] [address] [address] Social History Date Tobacco Use Types Packs/Day Years Used Never Smoker Smokeless Tobacco: Never Used Drinks/Week oz/Week Comments Alcohol Use rarely . Drinks beer every couple of months No Sex Assigned at Date Recorded Not on file Industry Job Start Date Occupation Not on file Not on file Not on file Travel End Travel History Travel Start No recent travel history available. documented as of this encounter Functional Status Date of Assessment [...] impairment: No documented as of this encounter Medications at Time of Discharge Start Date End Date Medication Sig Dispensed Refills acetaminophen (TYLENOL) Take 500 mg 0 500 mg tablet by mouth daily as needed for Pain. Max of 2,000 mg of acetaminophen in 24 hours. ascorbic acid (vitamin C) Take 250 mg 0 (VITAMIN-C) 250 mg tablet by mouth daily. Cholecalciferol (Vitamin Take 2,000 0 D3) (VITAMIN D-3) 2,000 capsules by unit cap mouth twice daily. cyanocobalamin (VITAMIN Inject 1,000 0 B-12, RUBRAMIN) 1,000 mcg to mcg/mL injection area(s) as directed every 30 days. escitalopram oxalate Take 20 mg by 0 (LEXAPRO) 20 mg mouth daily. tabletIndications: major Indications: depressive disorder major depressive disorder ezetimibe (ZETIA) 10 mg Take 10 mg by 0 tablet mouth daily. ferrous sulfate (FEOSOL, Take 325 mg 0 FEROSUL) 325 mg (65 mg by mouth iron) tablet daily. Take on an empty stomach at least 1 hour before or 2 hours after food. levothyroxine (SYNTHROID) Take 100 mcg 0 100 mcg tablet by mouth daily. liraglutide (VICTOZA) 0.6 Inject 1.2 mg 0 mg/0.1 mL (18 mg/3 mL) under the injection pen skin daily. lisinopril (PRINIVIL, Take 40 mg by 0 ZESTRIL) 40 mg tablet mouth daily. loperamide (IMODIUM A-D) Take 2 mg by 0 2 mg capsule mouth as Needed for Diarrhea. Take 2 capsules by mouth initially, followed by 1 capsule by mouth after each loose stool up to a maximum of 8 tablets in 24 hours. loratadine (CLARITIN) 10 Take 10 mg by 0 mg tablet mouth every morning. melatonin 5 mg tab Take 5 mg by 0 mouth at bedtime daily. metoprolol XL (TOPROL XL) Take 50 mg by 0 50 mg extended release mouth daily. tablet documented as of this encounter Plan of Treatment Not on filedocumented as of this encounter Procedures Comments Procedure Name Priority Date/Time Associated Diag nosis US DOPPLER ABD PELV Routine 11/27/2019 Cirrhosis of liver RETROPER COMP 11:49 AM SEATING CAPTAIN without ascites, unspecified hepatic cirrhosis type (HCC) US ABDOMEN COMPLETE Routine 11/27/2019 Cirrhosis of liver 11:49 AM SEATING CAPTAIN without ascites, unspecified hepatic cirrhosis type (HCC) documented in this encounter Results * US DOPPLER ABD PELV RETROPER COMP (11/27/2019 11:49 AM SEATING CAPTAIN) Specimen Impressions Performed At 1. Liver mildly enlarged with cirrhotic morphology. Ultrasound LI RADS: US-1 [facility] RESULTS negative. US visualization score C. 2. Patent hepatic vasculature with no rmal direction of flow. 3. Persistent mild splenomegaly. Ultrasound LI-RADS (v2017) assessment c ategories US-1, negative: No US evidence of HCC US-2, subthreshold: Observation detecte d that may warrant short-term US surveillance US-3, positive: Observation detected th at may warrant contrast-enhanced imaging US visualization score A: No or minimal limitations B: Moderate limitations C: Severe limitations [email or web address] Finalized by Kayleigh Rich M.D. on 12:02 PM. Dictated by Kayleigh Rich M.D. on 11/27/2019 11:55 AM. Narrative Performed At Ultrasound of the abdomen with doppler. [facility] RAD RESUL TS Clinical Indication: Patient with cirrhosis. HCC screening a nd vascular evaluation. Technique: Multiple real-time grayscale sonographi c images were obtained throughout the abdomen with additional color Doppler a nd duplex acquisitions. Comparison is to March 28, 2019.. Findings: The liver measures 18.7 cm compared to 18.0 cm on the previous study. The liver is diffusely heterogeneous. Discrete he patic mass is not identified. There is no intrahepatic or extrahepatic biliary du ctal dilatation. The extrahepatic common duct measures 0.5 cm. The gallbladder is surgically absent. The pancreas, where visualized, appears normal in size. It is partially obscured by overlying bowel gas. The right kidney measures 11.2 cm in le ngth. The left kidney measures 11.0 cm in length. The kidneys are partially obscu red by bowel gas. No hydronephrosis is identified. The bladder is grossly unremarkable. The spleen is mildly enlarged measuring 15.8 cm. This compares to 16.8 cm previously. There is no abdominopelvic ascites note d. The partially visualized abdominal aort a is normal in caliber. It is largely obscured by bowel gas. The main portal vein velocity is 22-29 cm/sec. The right portal vein velocity is 27 cm/sec. The left portal vein velocit y is 12-13 cm/sec. The IVC has normal pulsatility and flow . The hepatic veins show normal flow with pulsatility. The resistive index of the proper hepat ic artery is 0.71. The splenic vein shows normal directi on of flow at the hilum and in midline.. Procedure Note Interface, Radiant Results - 11/28/2019 4:19 PM SEATING CAPTAIN Ultrasound of the abdomen with doppler. Clinical Indication: Patient with cirrhosis. HCC screening and vascular evaluation. Technique: Multiple real-time grayscale sonographic images were obtained throughout the abdomen with additional color Doppler and duplex acquisitions. Comparison is to March 28, 2019.. Findings: The liver measures 18.7 cm compared to [...] obscured by bowel gas. No hydronephrosis is identified. The bladder is grossly unremarkable. The spleen is mildly enlarged measuring 15.8 cm. This compares to 16.8 cm previously. There is no abdominopelvic ascites noted. The partially visualized abdominal aorta is normal in caliber. It is largely obscured by bowel gas. The main portal vein [...] of flow at the hilum and in midline.. IMPRESSION 1. Liver mildly enlarged with cirrhotic morphology. Ultrasound LI RADS: US-1 negative. US visualization score C. 2. Patent hepatic vasculature with norm al direction of flow. 3. Persistent mild splenomegaly. Ultrasound LI-RADS (v2017) assessment categories US-1, negative: No US evidence of HCC US-2, subthreshold: Observation detected that may warrant short-term US surveillance US-3, positive: Observation detected that may warrant contrast-enhanced imaging US visualization score A: No or minimal limitations B: Moderate limitations C: Severe limitations [email or web address] Finalized by Kayleigh Rich M.D. on 11/27/2019 12:02 PM. Dictated by Kayleigh Rich M.D. on 11/27/2019 11:55 AM. Performing Organization Address City/State/Zipcode Ph one Number [facility] RAD RESULTS * US ABDOMEN COMPLETE (11/27/2019 11:49 AM SEATING CAPTAIN) Specimen Impressions Performed At 1. Liver mildly enlarged with cirrhotic morphology. Ultrasound LI RADS: US-1 [facility] RAD RESULTS negative. US visualization score C. 2. Patent hepatic vasculature with no rmal direction of flow. 3. Persistent mild splenomegaly. Ultrasound LI-RADS (v2017) assessment c ategories US-1, negative: No US evidence of HCC US-2, subthreshold: Observation detecte d that may warrant short-term US surveillance US-3, positive: Observation detected th at may warrant contrast-enhanced imaging US visualization score A: No or minimal limitations B: Moderate limitations C: Severe limitations [email or web address] Finalized by Kayleigh Rich M.D. on 12:02 PM. Dictated by Kayleigh Rich M.D. on 11/27/2019 11:55 AM. Narrative Performed At Ultrasound of the abdomen with doppler. [facility] RAD RESUL TS Clinical Indication: Patient with cirrhosis. HCC screening a nd vascular evaluation. Technique: Multiple real-time grayscale sonographi c images were obtained throughout the abdomen with additional color Doppler a nd duplex acquisitions. Comparison is to March 28, 2019.. Findings: The liver measures 18.7 cm compared to 18.0 cm on the previous study. The liver is diffusely heterogeneous. Discrete he patic mass is not identified. There is no intrahepatic or extrahepatic biliary du ctal dilatation. The extrahepatic common duct measures 0.5 cm. The gallbladder is surgically absent. The pancreas, where visualized, appears normal in size. It is partially obscured by overlying bowel gas. The right kidney measures 11.2 cm in le ngth. The left kidney measures 11.0 cm in length. The kidneys are partially obscu red by bowel gas. No hydronephrosis is identified. The bladder is grossly unremarkable. The spleen is mildly enlarged measuring 15.8 cm. This compares to 16.8 cm previously. There is no abdominopelvic ascites note d. The partially visualized abdominal aort a is normal in caliber. It is largely obscured by bowel gas. The main portal vein velocity is 22-29 cm/sec. The right portal vein velocity is 27 cm/sec. The left portal vein velocit y is 12-13 cm/sec. The IVC has normal pulsatility and flow . The hepatic veins show normal flow with pulsatility. The resistive index of the proper hepat ic artery is 0.71. The splenic vein shows normal directi on of flow at the hilum and in midline.. Procedure Note Interface, Radiant Results - 11/28/2019 4:19 PM SEATING CAPTAIN Ultrasound of the abdomen with doppler. Clinical Indication: Patient with cirrhosis. HCC screening and vascular evaluation. Technique: Multiple real-time grayscale sonographic images were obtained throughout the abdomen with additional color Doppler and duplex acquisitions. Comparison is to March 28, 2019.. Findings: The liver measures 18.7 cm compared to [...] obscured by bowel gas. No hydronephrosis is identified. The bladder is grossly unremarkable. The spleen is mildly enlarged measuring 15.8 cm. This compares to 16.8 cm previously. There is no abdominopelvic ascites noted. The partially visualized abdominal aorta is normal in caliber. It is largely obscured by bowel gas. The main portal vein [...] of flow at the hilum and in midline.. IMPRESSION 1. Liver mildly enlarged with cirrhotic morphology. Ultrasound LI RADS: US-1 negative. US visualization score C. 2. Patent hepatic vasculature with norm al direction of flow. 3. Persistent mild splenomegaly. Ultrasound LI-RADS (v2017) assessment categories US-1, negative: No US evidence of HCC US-2, subthreshold: Observation detected that may warrant short-term US surveillance US-3, positive: Observation detected that may warrant contrast-enhanced imaging US visualization score A: No or minimal limitations B: Moderate limitations C: Severe limitations [email or web address] Finalized by Kayleigh Rich M.D. on 11/27/2019 12:02 PM. Dictated by Kayleigh Rich M.D. on 11/27/2019 11:55 AM. Performing Organization Address City/State/Zipcode Ph one Number [facility] RESULTS documented in this encounter Visit Diagnoses Diagnosis Cirrhosis of liver without ascites, uns pecified hepatic cirrhosis type (HCC) documented in this encounter
--- OUTSIDE RECORDS SUMMARY | 2020-03-16 11:38 | XMS REPORT | Clinical Summary ---
Author Author [facility] Organization [facility] Address Unknown Phone Unavailable Care Team Providers Care Supply Chain Director Name Role Phone Lucrecia Sánchez DO Unavailable Lona Vega MD PCP Hernandez Najera MD [id number] Jessy Montgomery MD [id number] Vitaly Noriega MD [id number] Source Comments Some departments are not documenting in the electronic medical record. If you d o not see the information that you expected, contact Release of Information in [facility] Information Management department at [phone] for further assistan ce in locating additional records.[facility] Allergies Comments Active Allergy Reactions Severity Noted Date Adhesive RASH Medium 11/11/2014 Amoxicillin RASH Medium 12/01/2016 Hydromorphone HALLUCINATION High 05/21/2015 S Erythromycin RASH, NAUSEA Medium 11/11/2014 AND VOMITING Hospitalized with flu at age 17. Influenza Virus Vaccines SEE COMMENTS Low 11/11 Morphine HALLUCINATION High 05/21/2015 S Morphine Sulfate HALLUCINATION High 12/01/2016 S Niacin HIVES Medium 03/17/2017 Known side effect of all opioid medications. Not an allergy Oxycodone HEADACHE, Low 05/20/2018 ITCHING Tolerates Keflex Penicillins RASH Medium 11/11/2014 Kdlmjgk-Kum-Lpg Reductase STOMACH UPSET Low 110 02/2019 Inhibitors Sulfa (Sulfonamide HEADACHE, Medium 11/11/2014 Antibiotics) HIVES, RASH Sulfamethoxazole-Trimetho HIVES Medium 11/11 prim Tetanus And Diphtheria HEADACHE, Medium 015 Toxoids, Adsorbed, Adult EDEMA Medications End Date Status Medication Sig Dispensed Refills Start Date Active levothyroxine (SYNTHROID) Take 100 mcg 0 100 mcg tablet by mouth daily. Active lisinopril (PRINIVIL, Take 40 mg by 0 ZESTRIL) 40 mg tablet mouth daily. Active cyanocobalamin (VITAMIN Inject 1,000 0 B-12, RUBRAMIN) 1,000 mcg to mcg/mL injection area(s) as directed every 30 days. Active ascorbic acid (vitamin C) Take 250 mg 0 (VITAMIN-C) 250 mg tablet by mouth daily. Active melatonin 5 mg tab Take 5 mg by 0 mouth at bedtime daily. Active ezetimibe (ZETIA) 10 mg Take 10 mg by 0 tablet mouth daily. Active Cholecalciferol (Vitamin Take 2,000 0 D3) (VITAMIN D-3) 2,000 capsules by unit cap mouth twice daily. Active acetaminophen (TYLENOL) Take 500 mg 0 500 mg tablet by mouth daily as needed for Pain. Max of 2,000 mg of acetaminophen in 24 hours. Active ferrous sulfate (FEOSOL, Take 325 mg 0 FEROSUL) 325 mg (65 mg by mouth iron) tablet daily. Take on an empty stomach at least 1 hour before or 2 hours after food. Active metoprolol XL (TOPROL XL) Take 50 mg by 0 50 mg extended release mouth daily. tablet Active loratadine (CLARITIN) 10 Take 10 mg by 0 mg tablet mouth every morning. Active loperamide (IMODIUM A-D) Take 2 mg by 0 2 mg capsule mouth as Needed for Diarrhea. Take 2 capsules by mouth initially, followed by 1 capsule by mouth after each loose stool up to a maximum of 8 tablets in 24 hours. Active escitalopram oxalate Take 20 mg by 0 (LEXAPRO) 20 mg mouth daily. tabletIndications: major Indications: depressive disorder major depressive disorder Active liraglutide (VICTOZA) 0.6 Inject 1.2 mg 0 mg/0.1 mL (18 mg/3 mL) under the injection pen skin daily. Active Problems Problem Noted Date Colitis 05/16/2018 Ulceration, colon 04/24/2018 Overview: [id number] Colon ulcer 03/16/2018 Overview: [facility] [id number] History of small bowel obstruction 01/30/2018 History of cryptosporidiosis 01/30/2018 Dyspepsia 07/29/2017 Overview: Added automatically from request for [facility] [id number] Status post partial colectomy 05/09/2015 Small bowel obstruction 04/19/2015 Iron deficiency anemia 03/07/2015 Vitamin B12 deficiency 03/07/2015 Essential hypertension 03/07/2015 Depression 03/07/2015 Colonic mass 03/07/2015 Chronic diarrhea 03/07/2015 Melena 03/06/2015 DM (diabetes mellitus) 11/11/2014 Type II diabetes mellitus Hypothyroidism Hyperlipidemia Overview: take Zetia Arthritis Resolved Problems Problem Noted Date Resolved Date Right upper quadrant abdominal pain 01/30/2018 Open wound anterior abdominal wall 06/18/2015 Pyuria 03/08/2015 05/22/2018 Type 2 diabetes mellitus without complication 03/07/2015 05/22/2018 Hypothyroid 11/11/2014 05/22/2018 S/P dusty 11/11/2014 05/22/2018 Encounters Care Team Description Date Type Specialty Hernandez Najera MD Functional diarrhea (Primary Dx) 01/23/2020 Office Visit Gastroenterology from Last 3 Months Immunizations Name Administration Dates Next Due HEP A/HEP B Combined 05/07/2017 (Deferred: Patie nt Refused), 12/13/2016 Vaccine Hepatitis B Vaccine Adult 05/07/2017 (Deferred: Graciela ent Refused) 3 Dose IM Family History Medical History Relation Name Comments Heart Disease Brother Heart Disease Father Diabetes Mother Hypertension Mother Stroke Mother Diabetes Sister Relation Name Status Comments Brother Father Mother Sister Social History Date Tobacco Use Types Packs/Day [...] Travel Start No recent travel history available. Last Filed Vital Signs Reading Time Taken Comments Vital Sign 118/54 11/27/2019 1:06 PM CIRCULATION TENDER Blood Pressure 72 11/27/2019 1:06 PM CIRCULATION TENDER Pulse 36.2 C (97.2 F) 11/27/2019 1:06 PM CIRCULATION TENDER Temperature 18 11/27/2019 1:06 PM CIRCULATION TENDER Respiratory Rate 95% 01/23/2020 9:37 AM CDT Oxygen Saturation - - Inhaled Oxygen Concentration 138.3 kg (305 lb) 01/23/2020 9:37 AM CDT Weight 162.6 cm (5' 4") 01/23/2020 9:37 AM CDT Height 52.35 01/23/2020 9:37 AM CDT Body Mass Index Plan of Treatment Health Maintenance Due Date Last Done Comments MEDICARE ANNUAL WELLNESS 1953 VISIT DILATED EYE EXAM 1971 DTAP/TDAP VACCINES (1 - 1971 Tdap) FOOT EXAM 1971 PHYSICAL (COMPREHENSIVE) 1971 EXAM BREAST CANCER SCREENING 1993 SHINGLES RECOMBINANT 2003 VACCINE (1 of 2) HBA1C 10/20/2015 04/19/2015, 03/07/2015 PNEUMONIA (PPSV23) 2018 VACCINE (1 of 1 - PPSV23) INFLUENZA VACCINE 07/10/2020 COLORECTAL CANCER 04/17/2028 04/17/2018, SCREENING 09/19/2017, 11/03/2016, Additional history exists HEPATITIS C SCREENING Completed 09/28/2017 OSTEOPOROSIS Completed 12/13/2017 SCREENING/MONITORING Implants Device Identifier Shelf Expiration Date Model / Serial / L ot Implanted Type Area Manufactur er Knee Replacement Knee Results Not on filefrom Last 3 Months Insurance Type Payer Benefit Subscriber ID Effective Phone Address Plan / Dates Group Medicare MEDICARE MEDICARE xxxxxxxxxxx 2015-P PART A AND resent B [phone] Advance Directives Patient Combination Saw Operator Explanation Type Date Recorded ImageNow Scan Advance 04/17/2018 7:43 AM Directive/DPOA Date Inactivated Comments Code Status Date Activated 05/22/2018 7:17 PM Full Code 05/19/2018 6:17 AM Provider has discussed Code Status Yes w/Patient or Family? 05/19/2018 6:17 AM Full Code 05/16/2018 4:35 PM Provider has discussed Code Status No, more discussi on w/Patient or Family? needed 05/24/2015 11:50 AM Full Code 05/09/2015 4:50 PM Provider has discussed Code Status No, discussion no t w/Patient or Family? necessary based on Dx 04/20/2015 5:30 PM Full Code 04/19/2015 4:42 AM Provider has discussed Code Status Yes w/Patient or Family? 03/08/2015 5:11 PM Full Code 03/06/2015 8:56 PM Provider has discussed Code Status No, more discussi on w/Patient or Family? needed
--- OUTSIDE RECORDS SUMMARY | 2020-03-16 11:38 | XMS REPORT | Encounter Summary ---
Author Author [facility] Organization [facility] Address Unknown Phone Unavailable Care Team Providers Care Optical Instrument Repairer Name Role Phone SánchezMillera DO Unavailable Lona Vega MD PCP Hernandez Najera MD [id number] Jessy Montgomery MD [id number] Vitaly Noriega MD [id number] Reason for Visit * Reason Comments Follow Up Encounter Details Care Team Description Date Type Department Hernandez Najera MD [address] [facility] Lvl [address] [place] [address] Functional diarrhea (Primary Dx) 01/23/2020 Office Visit [facility] [address] [place] [address] Social History Date Tobacco Use Types Packs/Day [...] Signs Reading Time Taken Comments Vital Sign - - Blood Pressure - - Pulse - - Temperature - - Respiratory Rate 95% 01/23/2020 9:37 AM CDT Oxygen Saturation - - Inhaled Oxygen Concentration 138.3 kg (305 lb) 01/23/2020 9:37 AM CDT Weight 162.6 cm (5' 4") 01/23/2020 9:37 AM CDT Height 52.35 01/23/2020 9:37 AM CDT Body Mass Index documented in this encounter [...] this encounter Patient Instructions * Patient Instructions* Sally Churchill RN - 01/23/2020 10:00 AM CDT Swathi - It was nice speaking with you today. I'm glad things are going well for y ou. 1. Follow up as needed! Please call Dr. Najera's nurse at [phone] if you have any questions or conc erns. General Instructions: To have a medication refilled: Please use the [facility] Refill request or cont act your pharmacy directly to request medication refills. Please allow 72 hours . [facility] is on the 1st floor. It is open from 7 am-6pm -Tuesday and 6:30am-7pm on Mondays, and 7 am - Noon on Saturdays [facility] is located on the 2nd floor and is open 8 am-5 pm Tuesday-Tuesday [facility] is located next to the check out desk and is open from 8 A M to 4:45 PM Tuesday through Tuesday. [place] lab is located on the first floor 7-5:30 M-F, 7-1200 Sat, Sun Radiology is on the 2nd floor of the Medical Office Building and the 2nd [facility] Radiology Scheduling can be reached at To Schedule office visits: Call [phone] For procedure scheduling questions at the [facility] or [facility] se call ; for a procedure at [facility] please call . To receive appointment reminders on your cell phone: Make sure we have your c ell phone number, and Text [facility] to [phone]. Support for many chronic illnesses is available through [facility]: [email or web address] or [phone]. For urgent questions on nights, weekends or holidays, call the [facility] at , and ask for the doctor nurse practitioner adult for Gastroenterology. Call [phone] for an y emergencies. documented in this encounter Progress Notes * Hernandez Najera MD - 01/23/2020 10:00 AM CDT Telehealth Visit Note Date of Service: 01/23/2020 Subjective: Obtained patient's verbal consent to treat them and [facility] via this telehealth visit during the Coronavirus [facility] Swathi Cummins is a 64 y.o. female. 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 History of Crews cirrhosis, under care with Dr. Jiménez headline, recent EGD did not reveal any esophageal varices. CT enterography in May 2019, significant improvement with anastomosis hyperen hancement, and stranding, no stricture/obstruction noted. Overall she feels much better, currently takes Victoza which lost about 20 pound s. Has more regular bowel movement, occasionally have frequent bowel movement up to 2 times a day, which she takes Imodium up to 2 times, in case of more frequent bowel movement or has to go attend a social meeting. 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 ENDO COLONOSCOPY N/A 11/03/2016 Performed by Don Barrera MBBS at [facility] COLONOSCOPY BIOPSY N/A 11/03/2016 Performed by Don Barrrea MBBS at [facility] HYDROGEN BREATH TEST--for SIBO N/A 08/25/2017 Performed by Hernandez Najera MD at [facility] COLONOSCOPY N/A 09/19/2017 Performed by Hernandez Najera MD at [facility] ESOPHAGOGASTRODUODENOSCOPY N/A 09/19/2017 Performed by Hernandez Najera MD at [facility] HEEL SPUR SURGERY Right 03/22/2018 COLONOSCOPY N/A 04/17/2018 Performed by Hernandez Najera MD at [facility] COLONOSCOPY BIOPSY 04/17/2018 Performed by Hernandez Najera MD at [facility] EXPLORATORY LAPAROTOMY, EXTENSIVE LYSIS OF ADHESIONS >90 MINUTES, ILEOCOLECTOMY N/A 05/16/2018 Performed by Tunde Mendez DO at [facility] OR CARDIAC CATHERIZATION 03/2019 Dr. Mayo, [facility] ESOPHAGOGASTRODUODENOSCOPY WITH SPECIMEN COLLECTION BY BRUSHING/ WASHING N/A 08/28/2019 Performed by Jessy Montgomery MD at [facility] ABDOMEN SURGERY 2014, 2017 [place] - removed benign colon mass and terminal ileum, Andrea - removed 6.5 ft necrotic small bowel CHOLECYSTECTOMY COLONOSCOPY HAND SURGERY Left First of December Carpal tunnel release HX APPENDECTOMY HX ENDOSCOPY HX HYSTERECTOMY HX ROTATOR CUFF REPAIR Right KNEE REPLACEMENT Right REVISION TOTAL KNEE ARTHROPLASTY Right THYROIDECTOMY ~1995 Due to benign nodules Family History Problem Relation Age of Onset Diabetes Mother Hypertension Mother Stroke Mother Heart Disease Father Diabetes Sister Heart Disease Brother Social History Socioeconomic History Marital status: Spouse name: Not on file Number of children: Not on file Years of education: Not on file Highest education level: Not on file Occupational History Not on file Tobacco Use Smoking status: Never Smoker Smokeless tobacco: Never Used Substance and Sexual Activity Alcohol use: No Comment: rarely . Drinks beer every couple of months Drug use: No Sexual activity: Not on file Other Topics Concern Not on file Social History Narrative Not on file Review of Systems Constitutional: Negative. HENT: Negative. Eyes: Negative. Respiratory: Negative. Cardiovascular: Negative. Gastrointestinal: Positive for diarrhea. Endocrine: Negative. Genitourinary: Negative. Musculoskeletal: Negative. Skin: Negative. Allergic/Immunologic: Negative. Neurological: Negative. Hematological: Negative. Psychiatric/Behavioral: Negative. All other systems reviewed and are negative. Objective: acetaminophen (TYLENOL) 500 mg tablet Take 500 mg by mouth daily as needed f or Pain. Max of 2,000 mg of acetaminophen in 24 hours. ascorbic acid (vitamin C) (VITAMIN-C) 250 mg tablet Take 250 mg by mouth karrie ly. Cholecalciferol (Vitamin D3) (VITAMIN D-3) 2,000 unit cap Take 2,000 capsule s by mouth twice daily. cyanocobalamin (VITAMIN B-12, RUBRAMIN) 1,000 mcg/mL injection Inject 1,000 mcg to area(s) as directed every 30 days. escitalopram oxalate (LEXAPRO) 20 mg tablet Take 20 mg by mouth daily. Indic ations: major depressive disorder ezetimibe (ZETIA) 10 mg tablet Take 10 mg by mouth daily. ferrous sulfate (FEOSOL, FEROSUL) 325 mg (65 mg iron) tablet Take 325 mg by mouth daily. Take on an empty stomach at least 1 hour before or 2 hours after fo od. levothyroxine (SYNTHROID) 100 mcg tablet Take 100 mcg by mouth daily. liraglutide (VICTOZA) 0.6 mg/0.1 mL (18 mg/3 mL) injection pen Inject 1.2 mg under the skin daily. lisinopril (PRINIVIL, ZESTRIL) 40 mg tablet Take 40 mg by mouth daily. loperamide (IMODIUM A-D) 2 mg capsule Take 2 mg by mouth as Needed for Diarr hea. Take 2 capsules by mouth initially, followed by 1 capsule by mouth after ea ch loose stool up to a maximum of 8 tablets in 24 hours. loratadine (CLARITIN) 10 mg tablet Take 10 mg by mouth every morning. melatonin 5 mg tab Take 5 mg by mouth at bedtime daily. metoprolol XL (TOPROL XL) 50 mg extended release tablet Take 50 mg by mouth daily. Vitals: 01/23/20 0937 SpO2: 95% Weight: (!) 138.3 kg (305 lb) Height: 162.6 cm (64") PainSc: Zero Body mass index is 52.35 kg/m. Physical Exam Assessment and Plan: 64 years old female, with complex past medical history as below PMH of DM type 2, Anemia, PUD, Appy, CCY, ileocecal ectomy 05/2015, ileocolectomy and b owel resection for internal hernia repair 05/2018 and Nonspecific terminal ilei tis and stenosis of small bowel (treated with 5 ASA, Imuran, Entocort and Humi ra) returns to the clinic with routine follow-up. Finding of diarrhea, infreque nt bowel movement, although was suggestive for Crohn's disease, we did not find enough evidence to continue treatment given all side effect. All medication regarding treatment of presumptive Crohn disease, stopped, she is continuing on lifestyle change, and diet modification. Which seemingly is very successful, having less frequent bowel movement. Take Imodium as needed. Diarrhea most likely was related to rapid GI transit given history of multiple a bdominal surgery. There is no evidence of active Crohn's disease at this time. CT enterography on May 2019, showed improvement of anastomosis hyperenhanceme nt and possible inflammation. This most likely was related to ischemic change a t the anastomotic site. Also discussed with the patient about the sign symptoms of bowel obstruction i.e . significant abdominal pain/cramp, nausea, unable to defecate, significant gas and bloating. History of compensated Crews cirrhosis: Under care of Dr. Bourgeois at hepatology [facility] Follow-up at hepatology clinic with repeat ultrasound every 6 months. She is due for having CT abdomen on May 2020. Recent EGD did not reveal any evidence of esophageal varices, only mild portal h ypertensive gastropathy. Follow-up in GI clinic as needed. Plan of care discussed in detail with patient, she verbalized understanding and agreed Thank you very much for the consult, and for allowing me to participate in this patient's care. This note was in part completed with [employer], a voice recognition software. Some grammatical errors may have occurred. If you have concerns,please contact my o ffice for clarification. documented in this encounter Plan of Treatment Not on filedocumented as of this encounter Visit Diagnoses Diagnosis Functional diarrhea documented in this encounter
--- OUTSIDE RECORDS SUMMARY | 2020-03-16 11:38 | XMS REPORT | Encounter Summary ---
Author Author [facility] Organization [facility] Address Unknown Phone Unavailable Care Team Providers Care Silviculture Teacher Name Role Phone GonzaloMillera DO Unavailable Lona Vega MD PCP Hernandez Najera MD [id number] Jessy Montgomery MD [id number] Vitayl Noriega MD [id number] Encounter Details Care Team Description Date Type Department Gely Durham (Alyssa), CARDING SUPERVISOR-MODELING AGENCY MANAGER [address] [address] [phone] 11/27/2019 [facility] Social History Date Tobacco Use Types Packs/Day [...] Procedure Name Priority Date/Time Associated Diag nosis HC ALPHA FETO PROTEIN, Routine 11/27/2019 Cirrhos is of liver SERUM 1:59 PM DAM OPERATOR without ascites, unspecified hepatic cirrhosis type (HCC) MACHUCA (nonalcoholic steatohepatitis) Morbid obesity with BMI of 50.0-59.9, adult (HCC) Portal hypertension (HCC) Healthcare maintenance HC 25-OH VITAMIN D Routine 11/27/2019 Cirrhosis o f liver 1:59 PM DAM OPERATOR without ascites, unspecified hepatic cirrhosis type (HCC) Healthcare maintenance Vitamin D deficiency HC PT(INR) Routine 11/27/2019 Cirrhosis of li ross 1:59 PM DAM OPERATOR without ascites, unspecified hepatic cirrhosis type (HCC) MACHUCA (nonalcoholic steatohepatitis) Morbid obesity with BMI of 50.0-59.9, adult (HCC) Portal hypertension (HCC) Healthcare maintenance HC CBC W/ AUTOMATED DIFF Routine 11/27/2019 Cirrh osis of liver 1:59 PM DAM OPERATOR without ascites, unspecified hepatic cirrhosis type (HCC) MACHUCA (nonalcoholic steatohepatitis) Morbid obesity with BMI of 50.0-59.9, adult (HCC) Portal hypertension (HCC) Healthcare maintenance HC COMPREHENSIVE Routine 11/27/2019 Cirrhosis of liver METABOLIC PANEL 1:59 PM DAM OPERATOR without ascites, unspecified hepatic cirrhosis type (HCC) MACHUCA (nonalcoholic steatohepatitis) Morbid obesity with BMI of 50.0-59.9, adult (HCC) Portal hypertension (HCC) Healthcare maintenance documented in this encounter Results * CBC AND DIFF (11/27/2019 1:59 PM DAM OPERATOR) White Blood 7.3 4.5 - 11.0 K/UL [...] Basophil Count Specimen Blood Performing Organization Address [facility] one Number [facility] [address] [place] [address] * COMPREHENSIVE METABOLIC PANEL (11/27/2019 1:59 PM DAM OPERATOR) Sodium 140 137 - 147 MMOL/L [facility] [...] >60 >60 mL/min [facility] Comment: [place] The eGFR is not validated f or use in drug dosing adjustments. Continue to use estimated creatinine clearance per dosing reference text. Please contact the Clinical Pharmacist for questions. eGFR >60 >60 mL/min [facility] [place] Comment: The eGFR is not validated for use in drug dosing adjustments. Continue to use estimated creatinine clearance per dosing reference text. Please contact the Clinical Pharmacist for questions. Specimen Blood Performing Organization Address [facility] Ph one Number [facility] [address] [place] [address] * PROTIME INR (PT) (11/27/2019 1:59 PM DAM OPERATOR) INR 1.3 (H) 0.8 - 1.2 [facility] Specimen Blood Performing Organization Address [facility] Ph one Number MAIN LAB [address] [place] [address] * ALPHA FETO PROTEIN (AFP) (11/27/2019 1:59 PM DAM OPERATOR) Alpha Feto 4.0 0.0 - 15.0 NG/ML MAIN LAB Protein Specimen Blood Performing Organization Address City/[facility] Ph one Number MAIN LAB [address] [place] [address] * 25-OH VITAMIN D (D2 + D3) (11/27/2019 1:59 PM DAM OPERATOR) Vitamin 30.0 30 - 80 NG/ML MAIN LAB D(25-OH)Total Specimen Blood Performing Organization Address [facility] Ph one Number MAIN LAB [address] [place] [address] documented in this encounter Visit Diagnoses Diagnosis Cirrhosis of liver without ascites, uns pecified hepatic cirrhosis type (HCC) Healthcare maintenance Routine general medical examination at a health care facility Vitamin D deficiency Unspecified vitamin D deficiency MACHUCA (nonalcoholic steatohepatitis) Other chronic nonalcoholic liver diseas e Morbid obesity with BMI of 50.0-59.9, a dult (HCC) Morbid obesity Portal hypertension (HCC) Portal hypertension documented in this encounter
--- OUTSIDE RECORDS SUMMARY | 2020-03-16 11:38 | XMS REPORT | Encounter Summary ---
Author Author [facility] Organization [facility] Address Unknown Phone Unavailable Care Team Providers Care Calculation Reviewer Name Role Phone SánchezLucrecia DO Unavailable Lona Vega MD PCP Hernandez Najera MD [id number] Jessy Montgomery MD [id number] Vitaly Noriega MD [id number] Encounter Details Care Team Description Date Type Department Gely Durham (Alyssa), [employer] [address] [address] Cirrhosis of liver without ascites, unsp ecified hepatic cirrhosis type (HCC) (Primary Dx); MACHUCA (nonalcoholic steatohepatitis); Healthcare maintenance; Morbid obesity with BMI of 50.0-59.9, adult (HCC) 11/28/2019 Orders Only [facility] [address] [address] Social History Date Tobacco Use [...] impairment: No documented as of this encounter Plan of Treatment Order Schedule Name Type Priority Associated Diag noses Expected: 02/26/2020 (Approximate), Expi res: 05/28/2021 CBC AND DIFF Lab Routine Cirrhosis of li ross without ascites, unspecified hepatic cirrhosis type (HCC) MACHUCA (nonalcoholic steatohepatitis) Healthcare maintenance Morbid obesity with BMI of 50.0-59.9, adult (HCC) Expected: 02/26/2020 (Approximate), Expi res: 05/28/2021 COMPREHENSIVE METABOLIC Lab Routine Cirrho sis of liver PANEL without ascites, unspecified hepatic cirrhosis type (HCC) MACHUCA (nonalcoholic steatohepatitis) Healthcare maintenance Morbid obesity with BMI of 50.0-59.9, adult (HCC) Expected: 02/26/2020 (Approximate), Expi res: 05/28/2021 PROTIME INR (PT) Lab Routine Cirrhosis of liver without ascites, unspecified hepatic cirrhosis type (HCC) MACHUCA (nonalcoholic steatohepatitis) Healthcare maintenance Morbid obesity with BMI of 50.0-59.9, adult (HCC) documented as of this encounter Visit Diagnoses Diagnosis Cirrhosis of liver without ascites, uns pecified hepatic cirrhosis type (HCC) MACHUCA (nonalcoholic steatohepatitis) Other chronic nonalcoholic liver diseas e Healthcare maintenance Routine general medical examination at a health care facility Morbid obesity with BMI of 50.0-59.9, a dult (HCC) Morbid obesity documented in this encounter
--- OUTSIDE RECORDS SUMMARY | 2020-03-16 11:40 | XMS REPORT ---
Author Author Swathi Benavides Organization [facility] Address [address] [place] [address] Care Team Providers Care Household Personal Assistant Name Role Phone WIL Benavides Unavailable PROBLEMS Type Condition ICD9-CM Code YIP26-UV Code Onset Dates Condition S tatus SNOMED Code Problem Sensorineural hearing loss of right ear H90.41 Active 85780686 Problem Obstructive sleep apnea on CPAP G47.33 Active 87892565 Problem Periodic limb movement sleep disorder G47.61 Active 091592155 Problem Iron deficiency anemia due to chronic blood loss D 50.0 Active 16322400 Problem MACHUCA (nonalcoholic steatohepatitis) K75.81 Active 889633768 Problem Vitamin B12 deficiency E53.8 Active 275267684 Problem Chronic diarrhea K52.9 Active 236 587270 Problem Vitamin D deficiency E55.9 Active 35116935 Problem BMI 50.0-59.9, adult Z68.43 Active 535581890 Problem Fatty liver K76.0 Active 18839813 7 Problem Anxiety F41.9 Active 59905777 Problem Major depressive disorder, recurrent episode, moderate F33.1 Active 607846540 Problem Chronic tension-type headache, intractable G44.221 Active 059714013 Problem Right upper quadrant pain R10.11 Acti ve 83798226 Problem Frequent falls R29.6 Active 71045 2001 Problem Crohn's disease of both small and large intestin e with complication K50.819 Active 20978902 Problem Type 2 diabetes mellitus with other specified complication E11.69 Active 525815977336 Problem Hyperlipidemia, unspecified E78.5 Ac tive 04754430 Problem Mixed stress and urge urinary incontinence N39.46 Active 418050715 Problem Sinusitis chronic, frontal J32.1 Act katlyn 39439937 Problem Seasonal allergies J30.2 Active 4 59265886 Problem Other chronic pain G89.29 Active 8 2101339 Problem Hyperlipidemia E78.5 Active 86491 004 Problem Bilateral primary osteoarthritis of knee M17.0 Active 729889570 Problem Essential hypertension I10 Active 31791267 Problem Acquired hypothyroidism E03.9 Active 059218339 Problem History of hysterectomy for benign disease Z90.710 Active 650086533 Problem Morbid (severe) obesity due to excess calories E66 .01 Active 295875768 Problem Other cirrhosis of liver K74.69 Activ e 51862190 Problem Portal hypertension K76.6 Active 29713457 ALLERGIES No Information ENCOUNTERS Encounter Location Date Diagnosis [place] [address] [address] [facility] [id number] [address] [place] [address] Mar, [place] [address] [address] [facility] [id number] [address] [place] [address] Jan, [place] [address] [place] [id number] [address] [place] [address] Dec, [id number] [place] [address] Dec, Fever, unspecified fever cau se R50.9 [place] [address] [address] [facility] [id number] [address] [place] [address] Dec, Cough R05 and Fever, unspeci fied fever cause R50.9 [place] [address] [address] [facility] [id number] [address] [place] [address] Dec, [place] [address] [facility] [id number] [address] [place] [address] Dec, [place] [address] [facility] [id number] [address] [place] [address] Dec, [place] [address] [facility] [id number] [address] [place] [address] Nov, MACHUCA (nonalcoholic steatohep atitis) K75.81 ; BMI 50.0-59.9, adult Z68.43 and Type 2 diabetes mellitus with other specified complication E11.69 [place] [address] [facility] [id number] [address] [place] [address] Oct, Morbid (severe) obesity due to excess calories E66.01 and Type 2 diabetes mellitus with other specified complication E11.69 [place] [address] [facility] [id number] [address] [place] [address] Oct, Essential hypertension I10 ; BMI 50.0-59.9, adult Z68.43 and Morbid (severe) obesity due to excess calories E66.01 [place] [address] [facility] [id number] [address] [place] [address] Oct, [facility] for [facility] Z00.00 ; Portal hypertension K76.6 ; Crohn's disease of both small and large intestine with complication K50.819 ; Morbid (severe) obesity due to excess calories E66.01 ; MACHUCA (nonalcoholic steatohepatitis) K75.81 ; Vitamin D deficiency E55.9 ; Type 2 diabetes mellitus with other specified complication E11.69 ; Major depressive disorder, recurrent episode, moderate F33.1 ; Essential hypertension I10 ; Hyperlipidemia E78.5 and Other cirrhosis of liver K74.69 [place] [address] [facility] [id number] [address] [place] [address] Oct, [place] [address] [facility] [id number] [address] [place] [address] Sep, Major depressive disorder, r ecurrent episode, moderate F33.1 ; Vitamin B12 deficiency E53.8 ; BMI 50.0-59.9, adult Z68.43 and Essential hypertension I10 [place] [address] [facility] [id number] [address] [place] [address] Sep, Breast pain, right N64.[address] 340[address] [id number] [place] [address] Sep, Breast pain, right N64.[address] 340[address] [id number] [place] [address] Sep, Breast pain, right N64.[address] 340[address] [id number] [place] [address] Sep, Breast pain, right N64.4 [place] [address] [facility] [id number] [address] [place] [address] Aug, [place] [address] [place] [id number] [address] [place] [address] Aug, Major depressive disorder, r ecurrent episode, moderate F33.1 ; BMI 50.0-59.9, adult Z68.43 ; Type 2 diabetes mellitus without complication E11.9 ; Breast pain, right N64.4 and Encounter for screening mammogram for breast cancer Z12.31 [facility] [address] [id number] [place] [address] Jun, Pneumonia of right middle lo be due to infectious organism J18.1 and Cough R05 [facility] [address] [id number] [place] [address] 09 Jun, 2019 Acute nasopharyngitis J00 [place] [address] [place] [id number] [address] [place] [address] May, Iron deficiency anemia due t o chronic blood loss D50.0 ; Vitamin B12 deficiency E53.8 ; Crohn's disease of both small and large intestine with complication K50.819 ; Type 2 diabetes mellitus with other specified complication E11.69 ; Hyperlipidemia, unspecified E78.5 ; Vitamin D deficiency E55.9 ; Other cirrhosis of liver K74.69 ; Essential hypertension I10 and Major depressive disorder, recurrent episode, moderate F33.1 [place] [address] [facility] [id number] [address] [place] [address] May, Hyperlipidemia, unspecified E78.5 ; Other cirrhosis of liver K74.69 and Iron deficiency anemia due to chronic blood loss D50.0 [place] [address] [place] [id number] [address] [place] [address] February, [facility] [address] [id number] [place] [address] February, Acute recurrent pansinusitis J01.41 [facility] [address] [id number] [address] February, Acute maxillary sinusitis, r ecurrence not specified J01.00 [place] [address] [place] [address] Jan, Bilateral primary osteoarthr itis of knee M17.0 ; Morbid obesity E66.01 ; Viral syndrome B34.9 and Atrial dilatation, left I51.7 [place] [address] [address] Jan, [place] [address] [place] [id number] [address] [place] [address] Dec, Trigeminy R00.8 [place] [address] [address] Dec, Essential hypertension I10 ; Morbid obesity E66.01 ; Low back pain M54.5 ; Other chronic pain G89.29 and Pain in right knee M25.561 [place] [address] [place] [id number] [address] [place] [address] Nov, [place] [address] [address] Oct, Palpitations R00.2 [place] [address] [place] [address] Oct, [facility] Z00.00 ; Major depressive disorder, recurrent episode, moderate F33.1 ; Type 2 diabetes mellitus with other specified complication E11.69 ; Morbid (severe) obesity due to excess calories E66.01 ; Other cirrhosis of liver K74.69 ; Acquired hypothyroidism E03.9 ; Iron deficiency anemia due to chronic blood loss D50.0 ; Hyperlipidemia E78.5 ; Vitamin B12 deficiency E53.8 ; Vitamin D deficiency E55.9 ; Obstructive sleep apnea on CPAP G47.33 and Crohn's disease of both small and large intestine with complication K50.819 [place] [address] [place] [id number] [address] [place] [address] Oct, [place] [address] [place] [id number] [address] [place] [address] Oct, Crohn's disease of both smal l and large intestine with complication K50.819 [facility] [place] [id number] [address] [place] [address] Jul, Sinusitis chronic, frontal J 32.1 ; Acute mucoid otitis media of both ears H65.113 ; Seasonal allergies J30.2 and BMI 50.0-59.9, adult Z68.43 [place] [address] [address] Jul, Essential hypertension I10 ; Type 2 diabetes mellitus with other specified complication E11.69 ; BMI 50.0-59.9, adult Z68.43 ; Mixed stress and urge urinary incontinence N39.46 and Mid back pain on right side M54.9 [place] [id number] [place] [address] Jun, Iron deficiency anemia due t o chronic blood loss D50.0 ; Hyperlipidemia E78.5 ; Type 2 diabetes mellitus with other specified complication E11.69 ; Vitamin B12 deficiency E53.8 and Vitamin D deficiency E55.9 [facility] [place] [address] [address] [place] [id number] [address] [place] [address] Jun, Cough R05 and BMI 50.0-59.9, adult Z68.43 [place] [address] [place] [id number] [address] [place] [address] Jun, [place] [id number] [place] [address] May, Iron deficiency anemia due t o chronic blood loss D50.0 ; Chronic diarrhea K52.9 ; Essential hypertension I10 ; Type 2 diabetes mellitus with other specified complication E11.69 ; Vitamin D deficiency E55.9 ; Colon stricture K56.699 ; Vitamin B12 deficiency E53.8 ; Hyperlipidemia E78.5 and BMI 50.0-59.9, adult Z68.43 [place] [address] [place] [id number] [address] [place] [address] May, [place] [address] [address] Apr, Nonhealing wound of heel S91 .309A and Body mass index (BMI) of 50- 59.9 in adult Z68.[address] [address] Mar, [place] [address] [address] Mar, BMI 50.0-59.9, adult Z68.43 ; Flank pain R10.9 and Weight loss counseling, encounter for Z71.[address] [address] February, [address] [address] Jan, [place] [address] [place] [id number] [address] [place] [address] Jan, [facility] [address] [address] Jan, Diarrhea due to staphylococc us A04.8 and Diarrhea, unspecified type R19.7 [place] [id number] [place] [address] Jan, Acquired hypothyroidism E03. 9 ; Type 2 diabetes mellitus with other specified complication E11.69 ; Hyperlipidemia E78.5 ; Essential hypertension I10 ; Major depressive disorder, recurrent episode, moderate F33.1 and Vitamin D deficiency E55.[address] [address] Jan, Type 2 diabetes mellitus wit h other specified complication E11.69 ; Hyperlipidemia E78.5 ; Essential hypertension I10 ; Acquired hypothyroidism E03.9 ; Major depressive disorder, recurrent episode, moderate F33.1 ; Vitamin D deficiency E55.9 ; Sinus congestion R09.81 and BMI 50.0-59.9, adult Z68.43 [place] [address] [place] [id number] [address] [place] [address] Dec, [facility] [address] [place] [id number] [address] [place] [address] Sep, Encounter for immunization Z 23 [place] [address] [address] Sep, [facility] [address] [address] Sep, Vitamin B12 deficiency E53.8 [place] [address] [place] [id number] [place] [address] Aug, [place] [address] [address] Aug, BMI 60.0-69.9, adult Z68.44 and Acute non-recurrent maxillary sinusitis J01.00 [place] [address] [address] 14 Aug, 2017 [place] [address] [address] 02 Aug, 2017 Medicare annual wellness vis it, initial Z00.00 ; Screening for breast cancer Z12.31 ; BMI 40.0-44.9, adult Z68.41 and Acquired hypothyroidism E03.9 [place] [address] [place] [id number] [address] [place] [address] Jul, Actinic keratosis L57.0 [place] [address] [place] [id number] [address] [place] [address] Jul, Actinic keratosis L57.0 [place] [address] [place] [id number] [place] [address] Jul, Type 2 diabetes mellitus wit h other specified complication E11.69 ; Actinic keratosis L57.0 and Hypothyroidism, unspecified E03.9 [place] [address] [address] Jul, [place] [address] [address] Jul, [place] [address] [address] Jul, Vitamin B12 deficiency E53.8 [place] [address] [address] Jun, Acquired hypothyroidism E03. 9 and Chronic tension-type headache, intractable G44.221 [place] [address] [address] Jun, Back muscle spasm M62.830 an d BMI 50.0-59.9, adult Z68.43 [place] [address] [address] Jun, Vitamin B12 deficiency E53.8 [place] [address] [address] Jun, Crohn's disease of both smal l and large intestine with complication K50.819 [place] [address] [address] Jun, Crohn's disease of both smal l and large intestine with complication K50.819 [place] [address] [address] May, Hyperlipidemia E78.5 ; Anxie ty F41.9 and Essential hypertension I10 [place] [address] [address] May, [place] [address] [address] May, Encounter for immunization Z 23 and Vitamin B12 deficiency E53.8 [place] [address] [address] May, [facility] [address] [id number] [address] [place] [address] Apr, [facility] [address] [id number] [address] [place] [address] Apr, [facility] [address] [facility] [id number] [address] [place] [address] Apr, Crohn's disease of both smal l and large intestine with complication K50.819 [place] [address] [id number] [address] [place] [address] Apr, Vitamin B12 deficiency E53.8 [place] [address] [facility] [id number] [address] [place] [address] Apr, Crohn's disease of both smal l and large intestine with complication K50.819 and Acute pain of right shoulder M25.511 [place] [address] [facility] [id number] [address] [place] [address] Mar, Type 2 diabetes mellitus wit hout complication E11.9 ; Frequent falls R29.6 and Other chest pain R07.89 [place] [address] [facility] [id number] [address] [place] [address] Mar, [place] [address] [facility] [id number] [address] [place] [address] Mar, [place] [address] [facility] [id number] [address] [place] [address] Mar, Type 2 diabetes mellitus wit hout complication E11.9 and Blurry vision, bilateral H53.8 [place] [address] [id number] [address] [place] [address] Mar, Vitamin B12 deficiency E53.8 [facility] [address] [facility] [id number] [address] [place] [address] Mar, Crohn's disease of both smal l and large intestine with complication K50.819 [place] [address] [place] [id number] [address] [place] [address] February, Vitamin B12 deficiency E53.8 [facility] [address] [place] [id number] [address] [place] [address] Jan, Crohn's disease of both smal l and large intestine with complication K50.819 [facility] [address] [place] [id number] [address] [place] [address] Jan, Crohn's disease of both smal l and large intestine with complication K50.819 [facility] [address] [place] [id number] [address] [place] [address] Jan, Dark brown-colored urine R82 .99 and Acute suppurative otitis media of right ear without spontaneous rupture of tympanic membrane, recurrence not specified H66.001 [facility] [address] [place] [id number] [address] [place] [address] Jan, Encounter for immunization Z 23 [place] [address] [address] Dec, Crohn's disease of both smal l and large intestine with complication K50.819 and Eustachian tube dysfunction, right H69.81 [place] [address] [place] [id number] [address] [place] [address] Dec, [facility] [address] [place] [id number] [address] [place] [address] Dec, Contusion of right knee, ini tial encounter S80.01XA [facility] [address] [place] [id number] [address] [place] [address] Dec, [place] [address] [address] Dec, Acute pain of right knee M25 .561 [place] [address] [place] [id number] [address] [place] [address] 09 Dec, 2016 Iron deficiency anemia due t o chronic blood loss D50.0 [place] [address] [place] [id number] [address] [place] [address] 09 Dec, 2016 Hyperlipidemia E78.5 ; Type 2 diabetes mellitus without complication E11.9 ; Vitamin B12 deficiency E53.8 ; Essential hypertension I10 ; Obstructive sleep apnea on CPAP G47.33 and Periodic limb movement sleep disorder G47.61 [place] [address] [facility] [id number] [address] [place] [address] 22 Nov, 2016 Type 2 diabetes mellitus wit hout complication E11.9 ; Vitamin B12 deficiency E53.8 ; Hyperlipidemia E78.5 ; Essential hypertension I10 ; Obstructive sleep apnea on CPAP G47.33 ; Periodic limb movement sleep disorder G47.61 ; Anxiety F41.9 ; Acquired hypothyroidism E03.9 and Chronic tension-type headache, intractable G44.221 [place] [address] [facility] [id number] [address] [place] [address] 10 Nov, 2016 Crohn's disease of both smal l and large intestine with complication K50.819 [place] [address] [facility] [id number] [address] [place] [address] Nov, Vitamin B12 deficiency E53.8 [place] [address] [facility] [id number] [address] [place] [address] Oct, [place] [address] [facility] [id number] [address] [place] [address] Oct, Vitamin B12 deficiency E53.8 [place] [address] [facility] [id number] [address] [place] [address] Sep, [place] [address] [facility] [id number] [address] [place] [address] Sep, Vitamin B12 deficiency E53.8 [place] [address] [facility] [id number] [address] [place] [address] Aug, [place] [address] [facility] [id number] [address] [place] [address] 14 Aug, 2016 Vitamin B12 deficiency E53.8 [place] [address] [id number] [address] [place] [address] Aug, [facility] [address] [id number] [address] [place] [address] Jul, Elevated ALT measurement R74 .0 [facility] [address] [facility] [id number] [address] [place] [address] Jul, Hematuria R31.9 ; Acute righ t-sided thoracic back pain M54.6 ; Major depressive disorder, recurrent episode, moderate F33.1 and Elevated ALT measurement R74.0 [facility] [address] [facility] [id number] [address] [place] [address] Jul, [facility] [address] [facility] [id number] [address] [place] [address] Jul, Elevated ALT measurement R74 .0 [place] [address] [facility] [id number] [address] [place] [address] Jul, Iron deficiency anemia due t o chronic blood loss D50.0 [facility] [address] [facility] [id number] [address] [place] [address] 14 Jul, 2016 Type 2 diabetes mellitus wit hout complication E11.9 ; Acquired hypothyroidism E03.9 ; Iron deficiency anemia due to chronic blood loss D50.0 ; Hyperlipidemia E78.5 and Essential hypertension I10 [place] [facility] [id number] [address] [place] [address] 26 Jun, 2016 [place] [address] [facility] [id number] [address] [place] [address] 20 Jun, 2016 Vitamin B12 deficiency E53.8 [place] [address] [facility] [id number] [address] [place] [address] 16 Jun, 2016 Type 2 diabetes mellitus wit hout complication E11.9 ; Acquired hypothyroidism E03.9 ; Iron deficiency anemia due to chronic blood loss D50.0 ; Hyperlipidemia E78.5 ; Essential hypertension I10 ; Chronic tension-type headache, intractable G44.221 ; Pulsatile tinnitus, bilateral H93.13 ; Obstructive sleep apnea on CPAP G47.33 and Major depressive disorder, recurrent episode, moderate F33.1 [facility] [address] [id number] [address] [place] [address] 16 May, 2016 Vitamin B12 deficiency E53.8 [facility] [address] [id number] [address] [place] [address] 08 May, 2016 [facility] [address] [facility] [id number] [address] [place] [address] Apr, Vitamin B12 deficiency E53.8 [facility] [address] [id number] [address] [place] [address] Apr, [facility] [address] [facility] [id number] [address] [place] [address] Mar, Chronic tension-type headach e, intractable G44.221 and Major depressive disorder, recurrent episode, moderate F33.1 [facility] [address] [facility] [id number] [address] [place] [address] Mar, Vitamin B12 deficiency E53.8 [facility] [address] [id number] [address] [place] [address] February, [facility] [address] [facility] [id number] [address] [place] [address] February, Vitamin B12 deficiency E53.8 [facility] [address] [facility] [id number] [address] [place] [address] February, [facility] [address] [facility] [id number] [address] [place] [id number] Jan, Dysuria R30.0 [facility] [address] [facility] [id number] [address] [place] [id number] Jan, Type 2 diabetes mellitus wit hout complication E11.9 and Essential hypertension I10 [facility] [address] [facility] [id number] [address] [place] [id number] 15 Jan, 2016 Chronic diarrhea K52.9 [facility] [address] [facility] [id number] [address] [place] [id number] Jan, [facility] [address] [facility] [id number] [address] [place] [id number] Jan, Chronic diarrhea K52.9 [facility] [address] [facility] [id number] [address] [place] [id number] Jan, [facility] [address] [place] [id number] [place] [phone] Jan, Dysuria R30.0 [facility] [address] [place] [id number] [address] [place] [id number] 07 Jan, 2016 Vitamin B12 deficiency E53.8 [facility] [address] [place] [id number] [place] [id number] 07 Jan, 2016 Dysuria R30.0 and Iron defic iency anemia due to chronic blood loss D50.0 [facility] [address] [id number] [place] [id number] 05 Jan, 2016 Dysuria R30.0 [facility] [id number] [place] [id number] Jan, [facility] [address] [address] 15 Dec, 2015 [facility] [address] [address] Dec, Iron deficiency anemia due t o chronic blood loss D50.0 [facility] [address] [id number] [place] [address] 10 Dec, 2015 Dysuria R30.0 ; Fatigue R53. 83 ; Hyperlipidemia E78.5 and Diarrhea R19.7 [facility] [id number] [place] [address] 09 Dec, 2015 [facility] [address] [id number] [address] [place] [id number] 02 Dec, 2015 [facility] [address] [address] Nov, Vitamin B12 deficiency E53.8 [facility] [address] [facility] [id number] [address] [place] [address] Oct, Vitamin B12 deficiency E53.8 [facility] [address] [facility] [id number] [address] [place] [id number] 12 Oct, 2015 [facility] [address] [facility] [id number] [address] [place] [id number] 09 Oct, 2015 Headache R51 [facility] [address] [facility] [id number] [address] [place] [address] 07 Oct, 2015 Essential hypertension I10 ; Type 2 diabetes mellitus without complication E11.9 ; Vitamin B12 deficiency E53.8 ; Acquired hypothyroidism E03.9 ; Iron deficiency anemia due to chronic blood loss D50.0 and Hyperlipidemia E78.5 [facility] [address] [facility] [id number] [address] [place] [address] 17 Sep, 2015 Essential hypertension I10 ; Vitamin B12 deficiency E53.8 ; Iron deficiency anemia due to chronic blood loss D50.0 ; Type 2 diabetes mellitus without complication E11.9 ; Hyperlipidemia E78.5 and Acquired hypothyroidism E03.9 [facility] [address] [facility] [id number] [address] [place] [address] Sep, [facility] [address] [facility] [id number] [address] [place] [address] Sep, [facility] [id number] [place] [address] Jul, [facility] [address] [facility] [id number] [address] [place] [address] Jun, [facility] [address] [address] 18 Jun, 2015 [facility] [address] [facility] [id number] [address] [place] [address] 15 Jun, 2015 Hyperlipidemia 272.4 ; Iron deficiency anemia 280.9 ; Hypothyroidism 244.9 ; Diabetes mellitus without mention of complication, type II or unspecified type, not stated as uncontrolled 250.00 and Hypertension 401.9 [facility] [address] [id number] [address] [place] [address] Jun, [facility] [address] [id number] [address] [place] [address] Jun, [facility] [address] [facility] [id number] [address] [place] [address] May, Hyperlipidemia 272.4 [facility] [address] [id number] [address] [place] [address] May, [facility] [address] [facility] [id number] [address] [place] [address] May, [facility] [address] [facility] [id number] [address] [place] [address] Apr, Diabetes mellitus without me ntion of complication, type II or unspecified type, not stated as uncontrolled 250.00 ; Hypothyroidism 244.9 ; Hyperlipidemia 272.4 ; Pain in joint, lower leg 719.46 and RUQ pain 789.01 [facility] [address] [facility] [id number] [address] [place] [address] Mar, Sinusitis 473.9 [facility] [address] [facility] [id number] [address] [place] [address] Mar, [facility] [address] [facility] [id number] [address] [place] [address] Mar, [facility] [address] [facility] [id number] [address] [place] [address] Mar, Hematochezia 578.1 [facility] [address] [facility] [id number] [address] [place] [address] February, Sinusitis 473.9 [facility] [address] [facility] [id number] [address] [place] [address] February, [facility] [address] [id number] [address] [place] [address] Jan, [facility] [address] [id number] [address] [place] [address], [place] [address] 13 Jan, 2015 [facility] [address] [id number] [address] [place] [address], [place] [address] 24 Dec, 2014 [facility] [address] [id number] [address] [place] [address], [place] [address] 24 Dec, 2014 [facility] [address] [id number] [address] [place] [address], [place] [address] 24 Dec, 2014 [facility] [address] [id number] [address] [place] [address], [place] [address] 24 Dec, 2014 [facility] [address] [id number] [address] [place] [address], [place] [address] 24 Dec, 2014 [facility] [address] [id number] [address] [place] [address], [place] [address] Dec, [facility] [address] [id number] [address] [place] [address], [place] [address] Dec, [facility] [address] [id number] [address] [place] [address], [place] [address] Dec, [facility] [address] [id number] [address] [place] [address], [place] [address] Dec, [facility] [address] [id number] [address] [place] [address], [place] [address] Dec, [facility] [address] [id number] [address] [place] [address], [place] [address] Dec, [facility] [address] [id number] [address] [place] [address], [place] [address] Nov, [facility] [address] [id number] [address] [place] [address], [place] [address] Nov, [facility] [address] [id number] [address] [place] [address], [place] [address] 17 Nov, 2014 [facility] [address] [id number] [address] [place] [address], [place] [address] Nov, [facility] [address] [id number] [address] [place] [address], [place] [address] Oct, [facility] [address] [id number] [address] [place] [address], [place] [address] Oct, [facility] [address] [id number] [address] [place] [address], [place] [address] Oct, [facility] [address] [id number] [address] [place] [address], [place] [address] Oct, [facility] [address] [id number] [address] [place] [address], [place] [address] Oct, [facility] [address] [id number] [address] [place] [address], [place] [address] Oct, [facility] [address] [id number] [address] [place] [address], [place] [address] Sep, [facility] [address] [id number] [address] [place] [address], [place] [address] Sep, [facility] [address] [id number] [address] [place] [address], [place] [address] Sep, [facility] [address] [id number] [address] [place] [address], [place] [address] Sep, [facility] [address] [id number] [address] [place] [address], [place] [address] Sep, [facility] [address] [id number] [address] [place] [address], [place] [address] Sep, [facility] [address] [id number] [address] [place] [address], [place] [address] Sep, [facility] [address] [id number] [address] [place] [address], [place] [address] Aug, [facility] [address] [id number] [address] [place] [address], [place] [address] Aug, [facility] [address] [id number] [address] [place] [address], [place] [address] Aug, [facility] [address] [id number] [address] [place] [address], [place] [address] Aug, [facility] [address] [id number] [address] [place] [address], [place] [address] Aug, [facility] [address] [id number] [address] [place] [address], [place] [address] Aug, [facility] [address] [id number] [address] [place] [address], [place] [address] Aug, [facility] [address] [id number] [address] [place] [address], [place] [address] Aug, [facility] [address] [id number] [address] [place] [address], [place] [address] Aug, [facility] [address] [id number] [address] [place] [address], [place] [address] Aug, [facility] [address] [id number] [address] [place] [address], [place] [address] Aug, [facility] [address] [id number] [address] [place] [address] Aug, [facility] [address] [id number] [address] [place] [address] Aug, [facility] [address] [id number] [address] [place] [address] Aug, [facility] [address] [id number] [address] [place] [address], [place] [address] Jul, [facility] [address] [id number] [address] [place] [address] Jul, [facility] [address] [id number] [address] [place] [address] Jul, [facility] [address] [id number] [address] [place] [address] 06 Jul, 2014 [facility] [address] [id number] [address] [place] [address], [place] [address] 24 Jun, 2013 [facility] [address] [id number] [address] [place] [address], [place] [address] 24 Jun, 2013 [facility] [address] [id number] [address] [place] [address], [place] [address] 23 Jun, 2013 [facility] [address] [id number] [address] [place] [address], [place] [address] 23 Jun, 2013 [facility] [address] [id number] [address] [place] [address], [place] [address] 19 Jun, 2013 [facility] [address] [id number] [address] [place] [address], [place] [address] 19 Jun, 2013 [facility] [address] [id number] [address] [place] [address], [place] [address] 11 Jun, 2013 [facility] [address] [id number] [address] [place] [address], [place] [address] 11 Jun, 2013 [facility] [address] [id number] [address] [place] [address], [place] [address] 11 Jun, 2013 [facility] [address] [id number] [address] [place] [address], [place] [address] 11 Jun, 2013 [facility] [address] [id number] [address] [place] [address], [place] [address] 10 Jun, 2013 [facility] [address] [id number] [address] [place] [address], [place] [address] 10 Jun, 2013 [facility] [address] [id number] [address] [place] [address], [place] [address] 09 Jun, 2013 [facility] [address] [id number] [address] [place] [address], [place] [address] 09 Jun, 2013 [facility] [address] [id number] [address] [place] [address], [place] [address] 14 May, 2014 [facility] [address] [id number] [facility] [place] [address] May, [facility] [address] [id number] [facility] [place] [address] May, [facility] [address] [id number] [facility] [place] [address] May, [facility] [address] [id number] [facility] [place] [address] May, [facility] [address] [id number] [facility] [place] [address] May, [facility] [address] [id number] [facility] [place] [address] Apr, [facility] [address] [id number] [address] [place] [address], [place] [address] Apr, [facility] [address] [id number] [address] [place] [address], [place] [address] Apr, [facility] [address] [id number] [address] [place] [address], [place] [address] Apr, [facility] [address] [id number] [address] [place] [address], [place] [address] Apr, [facility] [address] [id number] [address] [place] [address], [place] [address] Apr, [facility] [address] [id number] [address] [place] [address], [place] [address] Apr, [facility] [address] [id number] [address] [place] [address], [place] [address] Apr, [facility] [address] [id number] [address] [place] [address], [place] [address] Apr, [facility] [address] [id number] [address] [place] [address], [place] [address] Apr, [facility] [address] [id number] [address] [place] [address], [place] [address] Apr, [facility] [address] [id number] [address] [place] [address], [place] [address] Mar, [facility] [address] [id number] [address] [place] [address], [place] [address] Mar, [facility] [address] [id number] [address] [place] [address], [place] [address] Mar, [facility] [address] [id number] [address] [place] [address], [place] [address] Mar, [facility] [address] [id number] [address] [place] [address], [place] [address] February, [facility] [address] [id number] [address] [place] [address], [place] [address] February, [facility] [address] [id number] [address] [place] [address], [place] [address] Jan, [facility] [address] [id number] [address] [place] [address], [place] [address] Jan, [facility] [address] [place] [id number] Jan, [facility] [address] [id number] [address] [place] [address], [place] [address] Jan, [facility] [address] [id number] [address] [place] [address], [place] [address] Jan, [facility] [address] [id number] [address] [place] [address], [place] [address] Jan, [facility] [address] [id number] [address] [place] [address], [place] [address] Jan, [facility] [address] [id number] [address] [place] [address], [place] [address] Jan, [facility] [address] [id number] [address] [place] [address], [place] [address] Jan, [facility] [address] [id number] [address] [place] [address], [place] [address] Jan, [facility] [address] [id number] [facility] [place] [address] Jan, [facility] [address] [id number] [address] [place] [address], [place] [address] Jan, [facility] [address] [id number] [address] [place] [address], [place] [address] Jan, [facility] [address] [id number] [address] [place] [address], [place] [address] Jan, [facility] [address] [id number] [address] [place] [address], [place] [address] Jan, [facility] [address] [id number] [address] [place] [address], [place] [address] Jan, [facility] [address] [id number] [address] [place] [address], [place] [address] Jan, [facility] [address] [id number] [address] [place] [address], [place] [address] Dec, [facility] [address] [id number] [address] [place] [address], [place] [address] Dec, [facility] [address] [id number] [address] [place] [address], [place] [address] Dec, [facility] [address] [id number] [address] [place] [address], [place] [address] Dec, [facility] [address] [id number] [address] [place] [address], [place] [address] Dec, [facility] [address] [id number] [address] [place] [address], [place] [address] Dec, [facility] [address] [id number] [address] [place] [address], [place] [address] Dec, [facility] [address] [id number] [address] [place] [address], [place] [address] Nov, [facility] [address] [id number] [address] [place] [address], [place] [address] Nov, [facility] [address] [id number] [address] [place] [address], [place] [address] Nov, [facility] [address] [id number] [address] [place] [address], [place] [address] Nov, [facility] [address] [id number] [address] [place] [address], [place] [address] Nov, [facility] [address] [id number] [address] [place] [address], [place] [address] Nov, [facility] [address] [id number] [address] [place] [address], [place] [address] Nov, [facility] [address] [id number] [address] [place] [address], [place] [address] Oct, [facility] [address] [id number] [address] [place] [address], [place] [address] Oct, [facility] [address] [id number] [address] [place] [address], [place] [address] Sep, [facility] [address] [id number] [address] [place] [address], [place] [address] Sep, [facility] [address] [id number] [address] [place] [address], [place] [address] Sep, [facility] [address] [id number] [address] [place] [address], [place] [address] Sep, [facility] [address] [id number] [address] [place] [address], [place] [address] Sep, [facility] [address] [id number] [address] [place] [address], [place] [address] Sep, [facility] [address] [id number] [address] [place] [address], [place] [id number] Sep, [facility] [address] [id number] [address] [place] [address], [place] [id number] Sep, [facility] [address] [id number] [address] [place] [phone] Sep, [facility] [address] [id number] [address] [place] [phone] Sep, [facility] [address] [id number] [address] [place] [id number] Aug, [facility] [address] [id number] [address] [place] [id number] Aug, [facility] [address] [id number] [address] [place] [id number] Aug, [facility] [address] [id number] [address] [place] [phone] Aug, [facility] [address] [id number] [address] [place] [phone] Aug, [facility] [address] [id number] [address] [place] [phone] Jul, [facility] [address] [id number] [address] [place] [id number] Jul, [facility] [address] [id number] [address] [place] [phone] Jul, [facility] [address] [id number] [address] [place] [id number] Jul, IMMUNIZATIONS No Known Immunizations SOCIAL HISTORY Never Assessed REASON FOR VISIT PLAN OF CARE VITAL SIGNS MEDICATIONS Unknown Medications RESULTS No Results PROCEDURES No Known procedures INSTRUCTIONS MEDICATIONS ADMINISTERED No Known Medications MEDICAL (GENERAL) HISTORY Type Description Date Medical History type 2 diabetes Medical History post cholecystectomy 2008 Medical History gastrointestinal disorder endoscopy stre ched esophagus in 2012 Medical History stress test- 05/2017 normal and EF 63% Medical History bowel obstruction 2018 Medical History Enlarged Spleen-[facility] Surgical History thyroid surgery thyroidectomy 1995 Surgical History appendectomy 1960 Surgical History hysterectomy 1982 Surgical History orthopeadic surgery 2 right knee replace ment 2004- 2006 Surgical History prior surgery diviated septum 1989 Surgical History Colon resection 2014 Surgical History carpal tunnel release 2016 Surgical History Right Rotator Cuff Repair 05/18/2017 Surgical History Rt foot surgery to remove heel spur 03/22 Surgical History Colon resection 05/16/2018 Hospitalization History Surgeries
--- OUTSIDE RECORDS SUMMARY | 2020-03-16 11:41 | XMS REPORT ---
Author Author Swathi Benavides Organization [facility] Address [address] [place] [address] Care Team Providers Care Flotation Operator Name Role Phone WIL Benavides Unavailable PROBLEMS Type Condition ICD9-CM Code ARQ65-OJ Code Onset Dates Condition S tatus SNOMED Code Problem Sensorineural hearing loss of right ear H90.41 Active 18240132 Problem Obstructive sleep apnea on CPAP G47.33 Active 30791432 Problem Periodic limb movement sleep disorder G47.61 Active 520148631 Problem Iron deficiency anemia due to chronic blood loss D 50.0 Active 25434998 Problem MACHUCA (nonalcoholic steatohepatitis) K75.81 Active 143854618 Problem Vitamin B12 deficiency E53.8 Active 414718686 Problem Chronic diarrhea K52.9 Active 236 634789 Problem Vitamin D deficiency E55.9 Active 70108398 Problem BMI 50.0-59.9, adult Z68.43 Active 526716858 Problem Fatty liver K76.0 Active 37438281 7 Problem Anxiety F41.9 Active 55109273 Problem Major depressive disorder, recurrent episode, moderate F33.1 Active 368160295 Problem Chronic tension-type headache, intractable G44.221 Active 717508388 Problem Right upper quadrant pain R10.11 Acti ve 94511696 Problem Frequent falls R29.6 Active 41336 2001 Problem Crohn's disease of both small and large intestin e with complication K50.819 Active 85956107 Problem Type 2 diabetes mellitus with other specified complication E11.69 Active 285315223766 Problem Hyperlipidemia, unspecified E78.5 Ac tive 73688566 Problem Mixed stress and urge urinary incontinence N39.46 Active 979424390 Problem Sinusitis chronic, frontal J32.1 Act katlyn 81870346 Problem Seasonal allergies J30.2 Active 4 03673586 Problem Other chronic pain G89.29 Active 8 6289598 Problem Hyperlipidemia E78.5 Active 55736 004 Problem Bilateral primary osteoarthritis of knee M17.0 Active 909106740 Problem Essential hypertension I10 Active 97593006 Problem Acquired hypothyroidism E03.9 Active 358656695 Problem History of hysterectomy for benign disease Z90.710 Active 741489726 Problem Morbid (severe) obesity due to excess calories E66 .01 Active 145456904 Problem Other cirrhosis of liver K74.69 Activ e 37028615 Problem Portal hypertension K76.6 Active 32123128 ALLERGIES No Information ENCOUNTERS Encounter Location Date Diagnosis [place] [address] [facility] [id number] [address] [place] [address] Jan, [place] [address] [facility] [id number] [address] [place] [address] 30 Dec, [id number] [place] [address] Dec, Fever, unspecified fever cau se R50.9 [place] [address] [place] [id number] [address] [place] [address] Dec, Cough R05 and Fever, unspeci fied fever cause R50.9 [place] [address] [facility] [id number] [address] [place] [address] Dec, [place] [address] [place] [id number] [address] [place] [address] Dec, [place] [address] [facility] [id number] [address] [place] [address] Dec, [place] [address] [place] [id number] [address] [place] [address] Nov, MACHUCA (nonalcoholic steatohep atitis) K75.81 ; BMI 50.0-59.9, adult Z68.43 and Type 2 diabetes mellitus with other specified complication E11.69 [place] [address] [place] [id number] [address] [place] [address] Oct, Morbid (severe) obesity due to excess calories E66.01 and Type 2 diabetes mellitus with other specified complication E11.69 [place] [address] [place] [id number] [address] [place] [address] Oct, Essential hypertension I10 ; BMI 50.0-59.9, adult Z68.43 and Morbid (severe) obesity due to excess calories E66.01 [place] [address] [facility] [id number] [address] [place] [address] Oct, Encounter for Medicare [facility] wellness exam Z00.00 ; Portal hypertension K76.6 [...] E78.5 and Other cirrhosis of liver K74.69 [place] [address] [facility] [id number] [address] [place] [address] Oct, [place] [address] [place] [id number] [address] [place] [address] Sep, Major depressive disorder, r ecurrent episode, moderate F33.1 ; Vitamin B12 deficiency E53.8 ; BMI 50.0-59.9, adult Z68.43 and Essential hypertension I10 [place] [address] [facility] [id number] [address] [place] [address] Sep, Breast pain, right N64.[id number] [address] Sep, Breast pain, right N64.[address] 340[id number], [place] [address] Sep, Breast pain, right N64.[address] 340[id number], [place] [address] Sep, Breast pain, right N64.4 [place] [address] [facility] [id number] [address] [place] [address] Aug, [facility] [address] [facility] [id number] [address] [place] [address] Aug, Major depressive disorder, r ecurrent episode, moderate F33.1 ; BMI 50.0-59.9, adult Z68.43 ; Type 2 diabetes mellitus without complication E11.9 ; Breast pain, right N64.4 and Encounter for screening mammogram for breast cancer Z12.31 [facility] [address] [id number] [address] Jun, Pneumonia of right middle lo be due to infectious organism J18.1 and Cough R05 [facility] [address] [id number], [place] [address] 09 Jun, 2019 Acute nasopharyngitis J00 [place] [address] [facility] [id number] [address] [place] [address] May, Iron deficiency anemia due t o [...] Major depressive disorder, recurrent episode, moderate F33.1 [facility] [address] [facility] [id number] [address] [place] [address] May, Hyperlipidemia, unspecified E78.5 ; Other cirrhosis of liver K74.69 and Iron deficiency anemia due to chronic blood loss D50.0 [facility] [address] [facility] [id number] [address] [place] [address] February, [facility] [address] [id number], [place] [address] February, Acute recurrent pansinusitis J01.41 [facility] [address] [id number], [place] [address] February, Acute maxillary sinusitis, r ecurrence not specified J01.00 [place] [address] [place] [id number] [address] [place] [address] Jan, Bilateral primary osteoarthr itis of knee M17.0 ; Morbid obesity E66.01 ; Viral syndrome B34.9 and Atrial dilatation, left I51.7 [place] [id number] [place] [address] Jan, [place] [address] [address] Dec, Trigeminy R00.8 [place] [id number] [place] [address] Dec, Essential hypertension I10 ; Morbid obesity E66.01 ; Low back pain M54.5 ; Other chronic pain G89.29 and Pain in right knee M25.561 [place] [address] [place] [id number] [address] [place] [address] Nov, [place] [address] [address] Oct, Palpitations R00.[address] [address] Oct, Encounter for Medicare annua l wellness exam Z00.00 ; Major depressive disorder, [...] small and large intestine with complication K50.819 [place] [address] [place] [id number] [address] [place] [address] Oct, [place] [address] [place] [id number] [place] [address] Oct, Crohn's disease of both smal l and large intestine with complication K50.819 [facility] [address] [address] Jul, Sinusitis chronic, frontal J 32.1 ; Acute mucoid otitis media of both ears H65.113 ; Seasonal allergies J30.2 and BMI 50.0-59.9, adult Z68.43 [place] [address] [address] Jul, Essential hypertension I10 ; Type 2 diabetes mellitus with other specified complication E11.69 ; BMI 50.0-59.9, adult Z68.43 ; Mixed stress and urge urinary incontinence N39.46 and Mid back pain on right side M54.9 [place] [address] [address] 26 Jun, 2018 Iron deficiency anemia due t o chronic blood loss D50.0 ; Hyperlipidemia E78.5 ; Type 2 diabetes mellitus with other specified complication E11.69 ; Vitamin B12 deficiency E53.8 and Vitamin D deficiency E55.9 [facility] [address] [address] 14 Jun, 2018 Cough R05 and BMI 50.0-59.9, adult Z68.43 [place] [address] [address] Jun, [place] [address] [address] May, Iron deficiency anemia due t o chronic blood loss D50.0 ; Chronic diarrhea K52.9 ; Essential hypertension I10 ; Type 2 diabetes mellitus with other specified complication E11.69 ; Vitamin D deficiency E55.9 ; Colon stricture K56.699 ; Vitamin B12 deficiency E53.8 ; Hyperlipidemia E78.5 and BMI 50.0-59.9, adult Z68.43 [place] [address] [address] May, [place] [address] [place] [id number] [address] [place] [address] Apr, Nonhealing wound of heel S91 .309A and Body mass index (BMI) of 50- 59.9 in adult Z68.43 [facility] [address] [place] [address] Mar, [place] [address] [address] Mar, BMI 50.0-59.9, adult Z68.43 ; Flank pain R10.9 and Weight loss counseling, encounter for Z71.3 [place] [address] [address] February, [place] [address] [address] Jan, [place] [address] [address] Jan, [facility] [address] [place] [id number] [address] [place] [address] Jan, Diarrhea due to staphylococc us A04.8 and Diarrhea, unspecified type R19.7 [place] [address] [place] [id number] [address] [place] [address] Jan, Acquired hypothyroidism E03. 9 ; Type 2 diabetes mellitus with other specified complication E11.69 ; Hyperlipidemia E78.5 ; Essential hypertension I10 ; Major depressive disorder, recurrent episode, moderate F33.1 and Vitamin D deficiency E55.9 [place] [address] [place] [id number] [address] [place] [address] Jan, Type 2 diabetes mellitus wit h other specified complication E11.69 ; Hyperlipidemia E78.5 ; Essential hypertension I10 ; Acquired hypothyroidism E03.9 ; Major depressive disorder, recurrent episode, moderate F33.1 ; Vitamin D deficiency E55.9 ; Sinus congestion R09.81 and BMI 50.0-59.9, adult Z68.43 [place] [address] [place] [address] Dec, [facility] [address] [place] [id number] [address] [place] [address] Sep, Encounter for immunization Z 23 [facility] [address] [place] [id number] [address] [place] [address] Sep, [facility] [address] [address] Sep, Vitamin B12 deficiency E53.8 [place] [address] [place] [id number] [place] [address] Aug, [place] [address] [address] Aug, BMI 60.0-69.9, adult Z68.44 and Acute non-recurrent maxillary sinusitis J01.00 [place] [address] [address] Aug, [place] [address] [place] [id number] [address] [place] [address] Aug, Medicare annual wellness vis it, initial Z00.00 ; Screening for breast cancer Z12.31 ; BMI 40.0-44.9, adult Z68.41 and Acquired hypothyroidism E03.9 [place] [address] [place] [id number] [address] [place] [address] Jul, Actinic keratosis L57.0 [place] [address] [address] Jul, Actinic keratosis L57.0 [place] [address] [place] [id number] [place] [address] Jul, Type 2 diabetes mellitus wit h other specified complication E11.69 ; Actinic keratosis L57.0 and Hypothyroidism, unspecified E03.9 [place] [address] [place] [id number] [address] [place] [address] Jul, [place] [address] [place] [id number] [address] [place] [address] Jul, [place] [address] [address] Jul, Vitamin B12 deficiency E53.8 [place] [address] [place] [id number] [place] [address] Jun, Acquired hypothyroidism E03. 9 and Chronic tension-type headache, intractable G44.221 [place] [address] [place] [id number] [place] [address] Jun, Back muscle spasm M62.830 an d BMI 50.0-59.9, adult Z68.43 [place] [address] [address] Jun, Vitamin B12 deficiency E53.8 [place] [address] [address] Jun, Crohn's disease of both smal l and large intestine with complication K50.819 [place] [address] [address] Jun, Crohn's disease of both smal l and large intestine with complication K50.819 [place] [address] [address] May, Hyperlipidemia E78.5 ; Anxie ty F41.9 and Essential hypertension I10 [place] [address] [address] May, [place] [address] [address] May, Encounter for immunization Z 23 and Vitamin B12 deficiency E53.8 [place] [address] [place] [id number] [address] [place] [address] May, [place] [address] [address] Apr, [place] [address] [facility] [id number] [address] [place] [address] Apr, [place] [address] [facility] [id number] [address] [place] [address] Apr, Crohn's disease of both smal l and large intestine with complication K50.819 [place] [address] [facility] [id number] [address] [place] [address] Apr, Vitamin B12 deficiency E53.8 [place] [address] [facility] [id number] [address] [place] [address] Apr, Crohn's disease of both smal l and large intestine with complication K50.819 and Acute pain of right shoulder M25.511 [place] [address] [facility] [id number] [address] [place] [address] Mar, Type 2 diabetes mellitus wit hout complication E11.9 ; Frequent falls R29.6 and Other chest pain R07.89 [place] [address] [facility] [id number] [address] [place] [address] Mar, [place] [address] [facility] [id number] [address] [place] [address] Mar, [place] [address] [facility] [id number] [address] [place] [address] Mar, Type 2 diabetes mellitus wit hout complication E11.9 and Blurry vision, bilateral H53.8 [place] [address] [facility] [id number] [address] [place] [address] Mar, Vitamin B12 deficiency E53.8 [place] [address] [facility] [id number] [address] [place] [address] Mar, Crohn's disease of both smal l and large intestine with complication K50.819 [place] [address] [facility] [id number] [address] [place] [address] February, Vitamin B12 deficiency E53.8 [place] [address] [place] [id number] [address] [place] [address] Jan, Crohn's disease of both smal l and large intestine with complication K50.819 [facility] [address] [facility] [id number] [address] [place] [address] Jan, Crohn's disease of both smal l and large intestine with complication K50.819 [facility] [address] [facility] [id number] [address] [place] [address] Jan, Dark brown-colored urine R82 .99 and Acute suppurative otitis media of right ear without spontaneous rupture of tympanic membrane, recurrence not specified H66.001 [place] [address] [facility] [id number] [address] [place] [address] Jan, Encounter for immunization Z 23 [place] [address] [facility] [id number] [address] [place] [address] Dec, Crohn's disease of both smal l and large intestine with complication K50.819 and Eustachian tube dysfunction, right H69.81 [place] [address] [facility] [id number] [address] [place] [address] Dec, [place] [address] [facility] [id number] [address] [place] [address] Dec, Contusion of right knee, ini tial encounter S80.01XA [place] [address] [place] [id number] [address] [place] [address] Dec, [place] [address] [facility] [id number] [address] [place] [address] Dec, Acute pain of right knee M25 .561 [place] [address] [place] [id number] [address] [place] [address] Dec, Iron deficiency anemia due t o chronic blood loss D50.0 [place] [address] [place] [id number] [address] [place] [address] Dec, Hyperlipidemia E78.5 ; Type 2 diabetes mellitus without complication E11.9 ; Vitamin B12 deficiency E53.8 ; Essential hypertension I10 ; Obstructive sleep apnea on CPAP G47.33 and Periodic limb movement sleep disorder G47.61 [facility] [address] [facility] [id number] [address] [place] [address] 22 Nov, 2016 Type 2 diabetes mellitus wit hout complication E11.9 ; Vitamin B12 deficiency E53.8 ; Hyperlipidemia E78.5 ; Essential hypertension I10 ; Obstructive sleep apnea on CPAP G47.33 ; Periodic limb movement sleep disorder G47.61 ; Anxiety F41.9 ; Acquired hypothyroidism E03.9 and Chronic tension-type headache, intractable G44.221 [place] [address] [facility] [id number] [address] [place] [address] Nov, Crohn's disease of both smal l and large intestine with complication K50.819 [place] [address] [facility] [id number] [address] [place] [address] Nov, Vitamin B12 deficiency E53.8 [place] [address] [facility] [id number] [address] [place] [address] Oct, [place] [address] [facility] [id number] [address] [place] [address] Oct, Vitamin B12 deficiency E53.8 [place] [address] [facility] [id number] [address] [place] [address] Sep, [facility] [address] [facility] [id number] [address] [place] [address] 15 Sep, 2016 Vitamin B12 deficiency E53.8 [place] [address] [facility] [id number] [address] [place] [address] Aug, [place] [address] [facility] [id number] [address] [place] [address] 14 Aug, 2016 Vitamin B12 deficiency E53.8 [place] [address] [facility] [id number] [address] [place] [address] Aug, [place] [address] [address] Jul, Elevated ALT measurement R74 .0 [place] [address] [address] Jul, Hematuria R31.9 ; Acute righ t-sided thoracic back pain M54.6 ; Major depressive disorder, recurrent episode, moderate F33.1 and Elevated ALT measurement R74.0 [place] [address] [address] Jul, [place] [address] [address] Jul, Elevated ALT measurement R74 .0 [place] [address] [address] Jul, Iron deficiency anemia due t o chronic blood loss D50.0 [place] [address] [address] Jul, Type 2 diabetes mellitus wit hout complication E11.9 ; Acquired hypothyroidism E03.9 ; Iron deficiency anemia due to chronic blood loss D50.0 ; Hyperlipidemia E78.5 and Essential hypertension I10 [place] [address] [address] Jun, [place] [address] [address] Jun, Vitamin B12 deficiency E53.8 [place] [address] [address] 16 Jun, 2016 Type 2 diabetes mellitus wit hout complication E11.9 ; Acquired hypothyroidism E03.9 ; Iron deficiency anemia due to chronic blood loss D50.0 ; Hyperlipidemia E78.5 ; Essential hypertension I10 ; Chronic tension-type headache, intractable G44.221 ; Pulsatile tinnitus, bilateral H93.13 ; Obstructive sleep apnea on CPAP G47.33 and Major depressive disorder, recurrent episode, moderate F33.1 [place] [address] [address] May, Vitamin B12 deficiency E53.8 [facility] [address] [facility] [id number] [address] [place] [address] 08 May, 2016 [facility] [address] [facility] [id number] [address] [place] [address] Apr, Vitamin B12 deficiency E53.8 [facility] [address] [facility] [id number] [address] [place] [address] Apr, [facility] [address] [facility] [id number] [address] [place] [address] Mar, Chronic tension-type headach e, intractable G44.221 and Major depressive disorder, recurrent episode, moderate F33.1 [facility] [address] [facility] [id number] [address] [place] [address] Mar, Vitamin B12 deficiency E53.8 [facility] [address] [place] [id number] [address] [place] [address] February, [facility] [address] [facility] [id number] [address] [place] [address] February, Vitamin B12 deficiency E53.8 [facility] [address] [facility] [id number] [address] [place] [address] February, [facility] [address] [place] [id number] [address] [place] [address] Jan, Dysuria R30.0 [facility] [address] [facility] [id number] [address] [place] [address] 22 Jan, 2016 Type 2 diabetes mellitus wit hout complication E11.9 and Essential hypertension I10 [facility] [address] [facility] [id number] [address] [place] [phone] 15 Jan, 2016 Chronic diarrhea K52.9 [facility] [address] [facility] [id number] [address] [place] [phone] 13 Jan, 2016 [facility] [address] [place] [place] [id number] [address] [place] [phone] Jan, Chronic diarrhea K52.9 [facility] [address] [facility] [id number] [address] [place] [phone] Jan, [facility] [address] [facility] [id number] [address] [place] [phone] Jan, Dysuria R30.0 [facility] [address] [facility] [id number] [address] [place] [phone] Jan, Vitamin B12 deficiency E53.8 [facility] [address] [facility] [id number] [address] [place] [phone] 07 Jan, 2016 Dysuria R30.0 and Iron defic iency anemia due to chronic blood loss D50.0 [facility] [address] [facility] [id number] [address] [place] [id number] 05 Jan, 2016 Dysuria R30.0 [facility] [address] [place] [id number] [address] [place] [phone] Jan, [facility] [address] [facility] [id number] [address] [place] [phone] 15 Dec, 2015 [facility] [address] [facility] [id number] [address] [place] [address] 11 Dec, 2015 Iron deficiency anemia due t o chronic blood loss D50.0 [facility] [address] [facility] [id number] [address] [place] [address] 10 Dec, 2015 Dysuria R30.0 ; Fatigue R53. 83 ; Hyperlipidemia E78.5 and Diarrhea R19.7 [facility] [address] [facility] [id number] [address] [place] [address] Dec, [facility] [address] [place] [id number] [address] [place] [id number] 02 Dec, 2015 [facility] [address] [facility] [id number] [address] [place] [phone] 10 Nov, 2015 Vitamin B12 deficiency E53.8 [facility] [address] [place] [id number] [address] [place] [phone] Oct, Vitamin B12 deficiency E53.8 [facility] [address] [facility] [id number] [address] [place] [id number] Oct, [facility] [address] [facility] [id number] [address] [place] [phone] 09 Oct, 2015 Headache R51 [facility] [address] [place] [id number] [address] [place] [phone] 07 Oct, 2015 Essential hypertension I10 ; Type 2 diabetes mellitus without complication E11.9 ; Vitamin B12 deficiency E53.8 ; Acquired hypothyroidism E03.9 ; Iron deficiency anemia due to chronic blood loss D50.0 and Hyperlipidemia E78.5 [facility] [address] [place] [id number] [address] [place] [address] Sep, Essential hypertension I10 ; Vitamin B12 deficiency E53.8 ; Iron deficiency anemia due to chronic blood loss D50.0 ; Type 2 diabetes mellitus without complication E11.9 ; Hyperlipidemia E78.5 and Acquired hypothyroidism E03.9 [facility] [id number] [place] [address] Sep, [facility] [address] [id number] Sep, [facility] [address] [place] [id number] [address] [place] [phone] Jul, [facility] [address] [place] [id number] [address] [place] [phone] Jun, [facility] [address] [place] [place] [id number] [address] [place] [phone] Jun, [facility] [address] [id number] 15 Jun, 2015 Hyperlipidemia 272.4 ; Iron deficiency anemia 280.9 ; Hypothyroidism 244.9 ; Diabetes mellitus without mention of complication, type II or unspecified type, not stated as uncontrolled 250.00 and Hypertension 401.9 [facility] [address] [place] [id number] [address] [place] [phone] 04 Jun, 2015 [facility] [address] [facility] [id number] [address] [place] [address] Jun, [facility] [address] [facility] [id number] [address] [place] [address] May, Hyperlipidemia 272.4 [facility] [address] [facility] [id number] [place] [phone] May, [facility] [address] [place] [place] [id number] [place] [phone] May, [facility] [address] [place] [id number] [place] [address] Apr, Diabetes mellitus without me ntion of complication, type II or unspecified type, not stated as uncontrolled 250.00 ; Hypothyroidism 244.9 ; Hyperlipidemia 272.4 ; Pain in joint, lower leg 719.46 and RUQ pain 789.01 [facility] [address] [place] [id number] [address] [place] [address] Mar, Sinusitis 473.9 [facility] [address] [place] [place] [id number] [place] [id number] Mar, [facility] [address] [place] [id number] [place] [phone] Mar, [facility] [address] [facility] [id number] [address] [place] [phone] Mar, Hematochezia 578.1 [facility] [address] [facility] [id number] [address] [place] [address] February, Sinusitis 473.9 [facility] [address] [place] [place] [id number] [address] [place] [id number] February, [facility] [address] [facility] [id number] [address] [place] [phone] Jan, [facility] [address] [place] [place] [id number] [place] [address] Jan, [facility] [address] [id number] [address] [place] [address], [place] [address] Dec, [facility] [address] [id number] [address] [place] [address], [place] [address] Dec, [facility] [address] [id number] [address] [place] [address], [place] [address] Dec, [facility] [address] [id number] [address] [place] [address], [place] [address] Dec, [facility] [address] [id number] [address] [place] [address], [place] [address] Dec, [facility] [address] [id number] [address] [place] [address], [place] [address] Dec, [facility] [address] [id number] [address] [place] [address], [place] [address] Dec, [facility] [address] [id number] [address] [place] [address], [place] [address] Dec, [facility] [address] [id number] [address] [place] [address], [place] [address] Dec, [facility] [address] [id number] [address] [place] [address], [place] [address] Dec, [facility] [address] [id number] [address] [place] [address], [place] [address] Dec, [facility] [address] [id number] [address] [place] [address], [place] [address] Nov, [facility] [address] [id number] [address] [place] [address], [place] [address] Nov, [facility] [address] [id number] [address] [place] [address], [place] [address] Nov, [facility] [address] [id number] [address] [place] [address], [place] [address] Nov, [facility] [address] [id number] [address] [place] [address], [place] [address] Oct, [facility] [address] [id number] [address] [place] [address], [place] [address] Oct, [facility] [address] [id number] [address] [place] [address], [place] [address] Oct, [facility] [address] [id number] [address] [place] [address], [place] [address] Oct, [facility] [address] [id number] [address] [place] [address], [place] [address] Oct, [facility] [address] [id number] [address] [place] [address], [place] [address] Oct, [facility] [address] [id number] [address] [place] [address], [place] [address] Sep, [facility] [address] [id number] [address] [place] [address], [place] [address] Sep, [facility] [address] [id number] [address] [place] [address], [place] [address] Sep, [facility] [address] [id number] [address] [place] [address], [place] [address] Sep, [facility] [address] [id number] [address] [place] [address], [place] [address] Sep, [facility] [address] [id number] [address] [place] [address], [place] [address] Sep, [facility] [address] [id number] [address] [place] [address], [place] [address] Sep, [facility] [address] [id number] [address] [place] [address], [place] [address] Aug, [facility] [address] [id number] [address] [place] [address], [place] [address] Aug, [facility] [address] [id number] [address] [place] [address], [place] [address] Aug, [facility] [address] [id number] [address] [place] [address], [place] [address] Aug, [facility] [address] [id number] [address] [place] [address], [place] [address] Aug, [facility] [address] [id number] [address] [place] [address], [place] [address] Aug, [facility] [address] [id number] [address] [place] [address], [place] [address] Aug, [facility] [address] [id number] [address] [place] [address], [place] [address] Aug, [facility] [address] [id number] [address] [place] [address], [place] [address] Aug, [facility] [address] [id number] [address] [place] [address], [place] [address] Aug, [facility] [address] [id number] [address] [place] [address], [place] [address] Aug, [facility] [address] [id number] [address] [place] [address], [place] [address] Aug, [facility] [address] [id number] [address] [place] [address] Aug, [facility] [address] [id number] [address] [place] [address] Aug, [facility] [address] [id number] [address] [place] [address] Jul, [facility] [address] [id number] [address] [place] [address] Jul, [facility] [address] [id number] [address] [place] [address] Jul, [facility] [address] [id number] [address] [place] [address] Jul, [facility] [address] [id number] [address] [place] [address] 24 Jun, 2013 [facility] [address] [id number] [address] [place] [address], [place] [address] 24 Sep, 2013 [facility] [address] [id number] [address] [place] [address], [place] [address] 23 Jun, 2013 [facility] [address] [id number] [address] [place] [address], [place] [address] 23 Jun, 2013 [facility] [address] [id number] [address] [place] [address], [place] [address] 19 Jun, 2013 [facility] [address] [id number] [address] [place] [address], [place] [address] 19 Jun, 2013 [facility] [address] [id number] [address] [place] [address], [place] [address] 11 Jun, 2013 [facility] [address] [id number] [address] [place] [address], [place] [address] 11 Jun, 2013 [facility] [address] [id number] [address] [place] [address], [place] [address] 11 Jun, 2013 [facility] [address] [id number] [address] [place] [address], [place] [address] 11 Jun, 2013 [facility] [address] [id number] [address] [place] [address], [place] [address] 10 Jun, 2013 [facility] [address] [id number] [address] [place] [address], [place] [address] 10 Jun, 2013 [facility] [address] [id number] [address] [place] [address], [place] [address] 09 Jun, 2013 [facility] [address] [id number] [address] [place] [address], [place] [address] 09 Jun, 2013 [facility] [address] [id number] [address] [place] [address], [place] [address] 14 May, 2014 [facility] [address] [id number] [address] [place] [address], [place] [address] 14 May, 2014 [facility] [address] [id number] [facility] [place] [address] May, [facility] [address] [id number] [facility] [place] [address] May, [facility] [address] [id number] [facility] [place] [address] May, [facility] [address] [id number] [facility] [place] [address] May, [facility] [address] [id number] [facility] [place] [address] Apr, [facility] [address] [id number] [address] [place] [address], [place] [address] Apr, [facility] [address] [id number] [address] [place] [address], [place] [address] Apr, [facility] [address] [id number] [address] [place] [address], [place] [address] Apr, [facility] [address] [id number] [address] [place] [address], [place] [address] Apr, [facility] [address] [id number] [address] [place] [address], [place] [address] Apr, [facility] [address] [id number] [address] [place] [address], [place] [address] Apr, [facility] [address] [id number] [address] [place] [address], [place] [address] Apr, [facility] [address] [id number] [address] [place] [address], [place] [address] Apr, [facility] [address] [id number] [address] [place] [address], [place] [address] Apr, [facility] [address] [id number] [address] [place] [address], [place] [address] Apr, [facility] [address] [id number] [address] [place] [address], [place] [address] Mar, [facility] [address] [id number] [address] [place] [address], [place] [address] Mar, [facility] [address] [id number] [address] [place] [address], [place] [address] Mar, [facility] [address] [id number] [address] [place] [address], [place] [address] Mar, [facility] [address] [id number] [address] [place] [address], [place] [address] February, [facility] [address] [id number] [address] [place] [address], [place] [address] February, [facility] [address] [id number] [address] [place] [address], [place] [address] Jan, [facility] [address] [id number] [address] [place] [address], [place] [address] Jan, [address] [id number] Jan, [facility] [address] [id number] [address] [place] [address], [place] [address] Jan, [facility] [address] [id number] [address] [place] [address], [place] [address] Jan, [facility] [address] [id number] [address] [place] [address], [place] [address] Jan, [facility] [address] [id number] [address] [place] [address], [place] [address] Jan, [facility] [address] [id number] [address] [place] [address], [place] [address] Jan, [facility] [address] [id number] [address] [place] [address], [place] [address] Jan, [facility] [address] [id number] [address] [place] [address], [place] [address] Jan, [facility] [address] [id number] [address] [place] [address], [place] [address] Jan, [facility] [address] [id number] [facility] [place] [address] Jan, [facility] [address] [id number] [address] [place] [address], [place] [address] Jan, [facility] [address] [id number] [address] [place] [address], [place] [address] Jan, [facility] [address] [id number] [address] [place] [address], [place] [address] Jan, [facility] [address] [id number] [address] [place] [address], [place] [address] Jan, [facility] [address] [id number] [address] [place] [address], [place] [address] Jan, [facility] [address] [id number] [address] [place] [address], [place] [address] Dec, [facility] [address] [id number] [address] [place] [address], [place] [address] Dec, [facility] [address] [id number] [address] [place] [address], [place] [address] Dec, [facility] [address] [id number] [address] [place] [address], [place] [address] Dec, [facility] [address] [id number] [address] [place] [address], [place] [address] Dec, [facility] [address] [id number] [address] [place] [address], [place] [address] Dec, [facility] [address] [id number] [address] [place] [address], [place] [address] Dec, [facility] [address] [id number] [address] [place] [address], [place] [address] Nov, [facility] [address] [id number] [address] [place] [address], [place] [address] Nov, [facility] [address] [id number] [address] [place] [address], [place] [address] Nov, [facility] [address] [id number] [address] [place] [address], [place] [address] Nov, [facility] [address] [id number] [address] [place] [address], [place] [address] Nov, [facility] [address] [id number] [address] [place] [address], [place] [address] Nov, [facility] [address] [id number] [address] [place] [address], [place] [address] Nov, [facility] [address] [id number] [address] [place] [address], [place] [address] Oct, [facility] [address] [id number] [address] [place] [address], [place] [address] Oct, [facility] [address] [id number] [address] [place] [address], [place] [address] Sep, [facility] [address] [id number] [address] [place] [address], [place] [address] Sep, [facility] [address] [id number] [address] [place] [address], [place] [address] Sep, [facility] [address] [id number] [address] [place] [address], [place] [address] Sep, [facility] [address] [id number] [address] [place] [address], [place] [phone] Sep, [facility] [address] [id number] [address] [place] [address], [place] [address] Sep, [facility] [address] [id number] [address] [place] [address], [place] [address] Sep, [facility] [address] [id number] [address] [place] [address], [place] [address] Sep, [facility] [address] [id number] [address] [place] [address], [place] [address] Sep, [facility] [address] [id number] [address] [place] [phone] Sep, [facility] [address] [id number] [address] [place] [phone] Aug, [facility] [address] [id number] [address] [place] [phone] Aug, [facility] [address] [id number] [address] [place] [phone] Aug, [facility] [address] [id number] [address] [place] [phone] Aug, [facility] [address] [id number] [address] [place] [phone] Aug, [facility] [address] [id number] [address] [place] [phone] Jul, [facility] [address] [id number] [address] [place] [phone] Jul, [facility] [address] [id number] [address] [place] [phone] Jul, [facility] [address] [id number] [address] [place] [phone] Jul, IMMUNIZATIONS No Known Immunizations SOCIAL HISTORY Never Assessed REASON FOR VISIT PLAN OF CARE VITAL SIGNS MEDICATIONS Unknown Medications RESULTS No Results PROCEDURES Procedure Date Ordered Result Body Site C DIFF AMPLIFIED PROBE Aug 26, 2014 FECES CULTURE, BACTERIA Aug 26, 2014 INSTRUCTIONS MEDICATIONS ADMINISTERED No Known Medications MEDICAL (GENERAL) HISTORY Type Description Date Medical History type 2 diabetes Medical History post cholecystectomy 2008 Medical History gastrointestinal disorder endoscopy stre ched esophagus in 2012 Medical History stress test- 05/2017 normal and EF 63% Medical History bowel obstruction 2018 Medical History Enlarged Spleen-[facility]U Surgical History thyroid surgery thyroidectomy 1996 Surgical History appendectomy 1960 Surgical History hysterectomy 1982 Surgical History orthopeadic surgery 2 right knee replace ment 2004- 2006 Surgical History prior surgery diviated septum 1989 Surgical History Colon resection 2014 Surgical History carpal tunnel release 2015 Surgical History Right Rotator Cuff Repair 05/18/2017 Surgical History Rt foot surgery to remove heel spur 6/13 /2018 Surgical History Colon resection 05/16/2018 Hospitalization History Surgeries
--- OUTSIDE RECORDS SUMMARY | 2020-03-16 11:41 | XMS REPORT ---
Author Author Ingrid, Swathi Doctor Organization [facility] Address Unknown Phone Unavailable Care Team Providers Care Survey Interviewer Name Role Phone Migration, Doctor Unavailable Unavailable PROBLEMS Type Condition ICD9-CM Code [id number] Code Onset Dates Condition S tatus SNOMED Code Problem Sensorineural hearing loss of right ear H90.41 Active 63128041 Problem Obstructive sleep apnea on CPAP G47.33 Active 96106946 Problem Periodic limb movement sleep disorder G47.61 Active 598362756 Problem Iron deficiency anemia due to chronic blood loss D 50.0 Active 28890430 Problem MACHUCA (nonalcoholic steatohepatitis) K75.81 Active 816322764 Problem Vitamin B12 deficiency E53.8 Active 492283886 Problem Chronic diarrhea K52.9 Active 236 702139 Problem Vitamin D deficiency E55.9 Active 14354464 Problem BMI 50.0-59.9, adult Z68.43 Active 038240014 Problem Fatty liver K76.0 Active 27461521 7 Problem Anxiety F41.9 Active 99052773 Problem Major depressive disorder, recurrent episode, moderate F33.1 Active 108450581 Problem Chronic tension-type headache, intractable G44.221 Active 885151581 Problem Right upper quadrant pain R10.11 Acti ve 19444732 Problem Frequent falls R29.6 Active 99067 2001 Problem Crohn's disease of both small and large intestin e with complication K50.819 Active 05398660 Problem Type 2 diabetes mellitus with other specified complication E11.69 Active 725180311192 Problem Hyperlipidemia, unspecified E78.5 Ac tive 17918596 Problem Mixed stress and urge urinary incontinence N39.46 Active 859353147 Problem Sinusitis chronic, frontal J32.1 Act katlyn 02360527 Problem Seasonal allergies J30.2 Active 4 24518290 Problem Other chronic pain G89.29 Active 8 3746464 Problem Hyperlipidemia E78.5 Active 63286 004 Problem Bilateral primary osteoarthritis of knee M17.0 Active 248262414 Problem Essential hypertension I10 Active 94129716 Problem Acquired hypothyroidism E03.9 Active 453263837 Problem History of hysterectomy for benign disease Z90.710 Active 408992753 Problem Morbid (severe) obesity due to excess calories E66 .01 Active 087403581 Problem Other cirrhosis of liver K74.69 Activ e 46525393 Problem Portal hypertension K76.6 Active 60403325 ALLERGIES No Information ENCOUNTERS Encounter Location Date Diagnosis [place] [address] [address] Mar, [place] [address] [facility] [id number] [address] [place] [address] Jan, [place] [address] [facility] [id number] [address] [place] [address] Dec, [id number] [place] [address] Dec, Fever, unspecified fever cau se R50.9 [place] [address] [place] [id number] [address] Dec, Cough R05 and Fever, unspeci fied fever cause R50.9 [place] [address] [facility] [id number] [address] [address] Dec, [place] [address] [place] [id number] [address] Dec, [place] [address] [facility] [id number] [address] [address] Dec, [place] [address] [place] [id number] [address] Nov, MACHUCA (nonalcoholic steatohep atitis) K75.81 ; BMI 50.0-59.9, adult Z68.43 and Type 2 diabetes mellitus with other specified complication E11.69 [place] [address] [place] [id number] [address] Oct, Morbid (severe) obesity due to excess calories E66.01 and Type 2 diabetes mellitus with other specified complication E11.69 [place] [address] [place] [id number] [address] Oct, Essential hypertension I10 ; BMI 50.0-59.9, adult Z68.43 and Morbid (severe) obesity due to excess calories E66.01 [place] [address] [place] [id number] [address] Oct, Encounter for Medicare [facility] wellness exam Z00.00 ; Portal hypertension K76.6 [...] E78.5 and Other cirrhosis of liver K74.69 [place] [address] [facility] [id number] [address] [address] Oct, [place] [address] [place] [id number] [address] Sep, Major depressive disorder, r ecurrent episode, moderate F33.1 ; Vitamin B12 deficiency E53.8 ; BMI 50.0-59.9, adult Z68.43 and Essential hypertension I10 [place] [address] [facility] [id number] [address] [place] [address] Sep, Breast pain, right N64.[address] [id number] [place] [address] Sep, Breast pain, right N64.[address] [id number] [address] Sep, Breast pain, right N64.[id number] [address] Sep, Breast pain, right N64.4 [place] [address] [facility] [id number] [address] [address] Aug, [facility] [address] [facility] [id number] [address] [address] Aug, Major depressive disorder, r ecurrent episode, moderate F33.1 ; BMI 50.0-59.9, adult Z68.43 ; Type 2 diabetes mellitus without complication E11.9 ; Breast pain, right N64.4 and Encounter for screening mammogram for breast cancer Z12.31 [facility] [address] [id number] [address] 13 Jun, 2019 Pneumonia of right middle lo be due to infectious organism J18.1 and Cough R05 [facility] [address] [id number], [place] [address] 09 Jun, 2019 Acute nasopharyngitis J00 [place] [address] [facility] [id number] [address] [address] May, Iron deficiency anemia due t o [...] Major depressive disorder, recurrent episode, moderate F33.1 [place] [address] [facility] [id number] [address] [place] [address] May, Hyperlipidemia, unspecified E78.5 ; Other cirrhosis of liver K74.69 and Iron deficiency anemia due to chronic blood loss D50.0 [facility] [address] [facility] [id number] [address] [place] [address] February, [facility] [address] 340 [id number], [place] [address] February, Acute recurrent pansinusitis J01.41 [facility] [address] 340 [id number], [place] [address] February, Acute maxillary sinusitis, r ecurrence not specified J01.00 [place] [address] [place] [address] Jan, Bilateral primary osteoarthr itis of knee M17.0 ; Morbid obesity E66.01 ; Viral syndrome B34.9 and Atrial dilatation, left I51.7 [place] [address] [place] [id number] [place] [address] Jan, [place] [address] [place] [id number] [place] [address] Dec, Trigeminy R00.[address] [place] [id number] [place] [address] Dec, Essential hypertension I10 ; Morbid obesity E66.01 ; Low back pain M54.5 ; Other chronic pain G89.29 and Pain in right knee M25.561 [place] [address] [address] Nov, [place] [address] [address] Oct, Palpitations R00.[address] [address] Oct, Encounter for Medicare annua l wellness [...] small and large intestine with complication K50.819 [place] [address] [place] [id number] [place] [address] Oct, [place] [address] [place] [id number] [place] [address] Oct, Crohn's disease of both smal l and large intestine with complication K50.819 [facility] [address] [address] Jul, Sinusitis chronic, frontal J 32.1 ; Acute mucoid otitis media of both ears H65.113 ; Seasonal allergies J30.2 and BMI 50.0-59.9, adult Z68.43 [place] [address] [address] Jul, Essential hypertension I10 ; Type 2 diabetes mellitus with other specified complication E11.69 ; BMI 50.0-59.9, adult Z68.43 ; Mixed stress and urge urinary incontinence N39.46 and Mid back pain on right side M54.9 [place] [address] [address] Jun, Iron deficiency anemia due t o chronic blood loss D50.0 ; Hyperlipidemia E78.5 ; Type 2 diabetes mellitus with other specified complication E11.69 ; Vitamin B12 deficiency E53.8 and Vitamin D deficiency E55.9 [facility] [address] [address] 14 Jun, 2018 Cough R05 and BMI 50.0-59.9, adult Z68.43 [place] [address] [place] [id number] [place] [address] Jun, [place] [address] [place] [id number] [place] [address] May, Iron deficiency anemia due t o chronic blood loss D50.0 ; Chronic diarrhea K52.9 ; Essential hypertension I10 ; Type 2 diabetes mellitus with other specified complication E11.69 ; Vitamin D deficiency E55.9 ; Colon stricture K56.699 ; Vitamin B12 deficiency E53.8 ; Hyperlipidemia E78.5 and BMI 50.0-59.9, adult Z68.43 [facility] [address] [address] May, [place] [address] [place] [id number] [place] [address] Apr, Nonhealing wound of heel S91 .309A and Body mass index (BMI) of 50- 59.9 in adult Z68.43 [facility] [address] [place] [address] Mar, [facility] [address] [address] Mar, BMI 50.0-59.9, adult Z68.43 ; Flank pain R10.9 and Weight loss counseling, encounter for Z71.3 [place] [address] [address] February, [place] [address] [address] Jan, [place] [address] [address] Jan, [facility] [address] [place] [id number] [place] [address] Jan, Diarrhea due to staphylococc us A04.8 and Diarrhea, unspecified type R19.7 [place] [address] [place] [id number] [place] [address] Jan, Acquired hypothyroidism E03. 9 ; Type 2 diabetes mellitus with other specified complication E11.69 ; Hyperlipidemia E78.5 ; Essential hypertension I10 ; Major depressive disorder, recurrent episode, moderate F33.1 and Vitamin D deficiency E55.9 [place] [address] [place] [id number] [place] [address] Jan, Type 2 diabetes mellitus wit h other specified complication E11.69 ; Hyperlipidemia E78.5 ; Essential hypertension I10 ; Acquired hypothyroidism E03.9 ; Major depressive disorder, recurrent episode, moderate F33.1 ; Vitamin D deficiency E55.9 ; Sinus congestion R09.81 and BMI 50.0-59.9, adult Z68.43 [facility] [address] [place] [address] Dec, [facility] [address] [place] [id number] [place] [address] Sep, Encounter for immunization Z 23 [facility] [address] [facility] [id number] [address] [place] [address] Sep, [place] [address] [address] Sep, Vitamin B12 deficiency E53.8 [place] [address] [place] [id number] [place] [address] Aug, [place] [address] [address] Aug, BMI 60.0-69.9, adult Z68.44 and Acute non-recurrent maxillary sinusitis J01.00 [place] [address] [address] Aug, [place] [address] [address] Aug, Medicare annual wellness vis it, initial Z00.00 ; Screening for breast cancer Z12.31 ; BMI 40.0-44.9, adult Z68.41 and Acquired hypothyroidism E03.9 [place] [address] [address] Jul, Actinic keratosis L57.0 [place] [address] [place] [id number] [place] [address] Jul, Actinic keratosis L57.0 [place] [address] [address] Jul, Type 2 diabetes mellitus wit h other specified complication E11.69 ; Actinic keratosis L57.0 and Hypothyroidism, unspecified E03.9 [place] [address] [place] [id number] [place] [address] Jul, [place] [address] [address] Jul, [place] [address] [address] Jul, Vitamin B12 deficiency E53.8 [place] [address] [place] [id number] [place] [address] Jun, Acquired hypothyroidism E03. 9 and Chronic tension-type headache, intractable G44.221 [place] [address] [address] Jun, Back muscle spasm M62.830 an d BMI 50.0-59.9, adult Z68.43 [place] [address] [address] Jun, Vitamin B12 deficiency E53.8 [place] [address] [address] Jun, Crohn's disease of both smal l and large intestine with complication K50.819 [place] [address] [address] Jun, Crohn's disease of both smal l and large intestine with complication K50.819 [place] [address] [address] May, Hyperlipidemia E78.5 ; Anxie ty F41.9 and Essential hypertension I10 [place] [address] [address] May, [place] [address] [address] May, Encounter for immunization Z 23 and Vitamin B12 deficiency E53.8 [place] [address] [place] [id number] [place] [address] May, [place] [address] [address] Apr, [place] [address] [facility] [id number] [address] [place] [address] Apr, [place] [address] [facility] [id number] [address] [place] [address] Apr, Crohn's disease of both smal l and large intestine with complication K50.819 [place] [address] [facility] [id number] [address] [place] [address] Apr, Vitamin B12 deficiency E53.8 [place] [address] [facility] [id number] [address] [place] [address] Apr, Crohn's disease of both smal l and large intestine with complication K50.819 and Acute pain of right shoulder M25.511 [place] [address] [facility] [id number] [address] [place] [address] Mar, Type 2 diabetes mellitus wit hout complication E11.9 ; Frequent falls R29.6 and Other chest pain R07.89 [place] [address] [facility] [id number] [address] [place] [address] Mar, [place] [address] [facility] [id number] [address] [place] [address] Mar, [place] [address] [facility] [id number] [address] [place] [address] Mar, Type 2 diabetes mellitus wit hout complication E11.9 and Blurry vision, bilateral H53.8 [place] [address] [facility] [id number] [address] [place] [address] Mar, Vitamin B12 deficiency E53.8 [place] [address] [facility] [id number] [address] [place] [address] Mar, Crohn's disease of both smal l and large intestine with complication K50.819 [place] [address] [facility] [id number] [address] [address] February, Vitamin B12 deficiency E53.8 [place] [address] [facility] [id number] [address] [place] [address] Jan, Crohn's disease of both smal l and large intestine with complication K50.819 [facility] [address] [facility] [id number] [address] [place] [address] Jan, Crohn's disease of both smal l and large intestine with complication K50.819 [facility] [address] [facility] [id number] [address] [place] [address] Jan, Dark brown-colored urine R82 .99 and Acute suppurative otitis media of right ear without spontaneous rupture of tympanic membrane, recurrence not specified H66.001 [place] [address] [place] [id number] [address] Jan, Encounter for immunization Z 23 [place] [address] [place] [id number] [address] Dec, Crohn's disease of both smal l and large intestine with complication K50.819 and Eustachian tube dysfunction, right H69.81 [place] [address] [place] [id number] [place] [address] Dec, [place] [address] [place] [id number] [place] [address] Dec, Contusion of right knee, ini tial encounter S80.01XA [place] [address] [place] [id number] [place] [address] Dec, [place] [address] [place] [id number] [address] Dec, Acute pain of right knee M25 .561 [place] [address] [place] [id number] [address] Dec, Iron deficiency anemia due t o chronic blood loss D50.0 [place] [address] [place] [id number] [place] [address] Dec, Hyperlipidemia E78.5 ; Type 2 diabetes mellitus without complication E11.9 ; Vitamin B12 deficiency E53.8 ; Essential hypertension I10 ; Obstructive sleep apnea on CPAP G47.33 and Periodic limb movement sleep disorder G47.61 [facility] [address] [facility] [id number] [address] [place] [address] 22 Nov, 2016 Type 2 diabetes mellitus wit hout complication E11.9 ; Vitamin B12 deficiency E53.8 ; Hyperlipidemia E78.5 ; Essential hypertension I10 ; Obstructive sleep apnea on CPAP G47.33 ; Periodic limb movement sleep disorder G47.61 ; Anxiety F41.9 ; Acquired hypothyroidism E03.9 and Chronic tension-type headache, intractable G44.221 [place] [address] [facility] [id number] [address] [place] [address] 10 Nov, 2016 Crohn's disease of both smal l and large intestine with complication K50.819 [place] [address] [facility] [id number] [address] [place] [address] Nov, Vitamin B12 deficiency E53.8 [place] [address] [facility] [id number] [address] [place] [address] Oct, [place] [address] [facility] [id number] [address] [place] [address] Oct, Vitamin B12 deficiency E53.8 [place] [address] [facility] [id number] [address] [place] [address] Sep, [place] [address] [facility] [id number] [address] [place] [address] Sep, Vitamin B12 deficiency E53.8 [place] [address] [facility] [id number] [address] [place] [address] Aug, [place] [address] [facility] [id number] [address] [place] [address] 14 Aug, 2016 Vitamin B12 deficiency E53.8 [place] [address] [facility] [id number] [address] [place] [address] Aug, [place] [address] [facility] [id number] [address] [place] [address] Jul, Elevated ALT measurement R74 .0 [place] [address] [address] Jul, Hematuria R31.9 ; Acute righ t-sided thoracic back pain M54.6 ; Major depressive disorder, recurrent episode, moderate F33.1 and Elevated ALT measurement R74.0 [place] [address] [address] Jul, [place] [address] [address] Jul, Elevated ALT measurement R74 .0 [place] [address] [address] Jul, Iron deficiency anemia due t o chronic blood loss D50.0 [place] [address] [address] Jul, Type 2 diabetes mellitus wit hout complication E11.9 ; Acquired hypothyroidism E03.9 ; Iron deficiency anemia due to chronic blood loss D50.0 ; Hyperlipidemia E78.5 and Essential hypertension I10 [place] [address] [address] Jun, [place] [address] [place] [id number] [address] Jun, Vitamin B12 deficiency E53.8 [place] [address] [address] 16 Jun, 2016 Type 2 diabetes mellitus wit hout complication E11.9 ; Acquired hypothyroidism E03.9 ; Iron deficiency anemia due to chronic blood loss D50.0 ; Hyperlipidemia E78.5 ; Essential hypertension I10 ; Chronic tension-type headache, intractable G44.221 ; Pulsatile tinnitus, bilateral H93.13 ; Obstructive sleep apnea on CPAP G47.33 and Major depressive disorder, recurrent episode, moderate F33.1 [place] [address] [address] May, Vitamin B12 deficiency E53.8 [facility] [address] [facility] [id number] [address] [place] [address] 08 May, 2016 [facility] [address] [facility] [id number] [address] [place] [address] Apr, Vitamin B12 deficiency E53.8 [facility] [address] [facility] [id number] [address] [place] [id number] Apr, [facility] [address] [facility] [id number] [address] [place] [id number] Mar, Chronic tension-type headach e, intractable G44.221 and Major depressive disorder, recurrent episode, moderate F33.1 [facility] [address] [facility] [id number] [address] [place] [id number] Mar, Vitamin B12 deficiency E53.8 [facility] [address] [place] [id number] [address] [place] [phone] February, [facility] [address] [facility] [id number] [address] [place] [id number] February, Vitamin B12 deficiency E53.8 [facility] [address] [facility] [id number] [address] [place] [id number] February, [facility] [address] [place] [id number] [address] [phone] Jan, Dysuria R30.0 [facility] [address] [place] [id number] [address] [place] [id number] 22 Jan, 2016 Type 2 diabetes mellitus wit hout complication E11.9 and Essential hypertension I10 [facility] [address] [facility] [id number] [address] [place] [id number] 15 Jan, 2016 Chronic diarrhea K52.9 [facility] [address] [facility] [id number] [address] [address] 13 Jan, 2016 [facility] [address] [place] [id number] [address] [address] Jan, Chronic diarrhea K52.9 [facility] [address] [place] [place] [id number] [address] [address] Jan, [facility] [address] [facility] [id number] [address] [place] [address] Jan, Dysuria R30.0 [facility] [address] [address] Jan, Vitamin B12 deficiency E53.8 [facility] [address] [id number] [address] [address] 07 Jan, 2016 Dysuria R30.0 and Iron defic iency anemia due to chronic blood loss D50.0 [place] [address] [place] [id number] [place] [address] 05 Jan, 2016 Dysuria R30.0 [place] [address] [address] Jan, [facility] [address] [id number] [address] [address] 15 Dec, 2015 [facility] [address] [address] Dec, Iron deficiency anemia due t o chronic blood loss D50.0 [place] [address] [address] 10 Dec, 2015 Dysuria R30.0 ; Fatigue R53. 83 ; Hyperlipidemia E78.5 and Diarrhea R19.7 [facility] [address] [address] Dec, [place] [address] [address] 02 Dec, 2015 [facility] [address] [place] [id number] [address] [address] 10 Nov, 2015 Vitamin B12 deficiency E53.8 [facility] [address] [address] Oct, Vitamin B12 deficiency E53.8 [facility] [address] [facility] [id number] [address] [address] Oct, [facility] [address] [facility] [id number] [address] [address] 09 Oct, 2015 Headache R51 [facility] [address] [id number] [address] [address] 07 Oct, 2015 Essential hypertension I10 ; Type 2 diabetes mellitus without complication E11.9 ; Vitamin B12 deficiency E53.8 ; Acquired hypothyroidism E03.9 ; Iron deficiency anemia due to chronic blood loss D50.0 and Hyperlipidemia E78.5 [facility] [address] [place] [id number] [address] [place] [address] 17 Sep, 2015 Essential hypertension I10 ; Vitamin B12 deficiency E53.8 ; Iron deficiency anemia due to chronic blood loss D50.0 ; Type 2 diabetes mellitus without complication E11.9 ; Hyperlipidemia E78.5 and Acquired hypothyroidism E03.9 [facility] [address] [id number] [address] [place] [address] Sep, [facility] [address] [address] Sep, [facility] [address] [place] [id number] [address] [address] 05 Jul, 2015 [facility] [address] [address] Jun, [facility] [address] [place] [address] Jun, [facility] [address] [address] 15 Jun, 2015 Hyperlipidemia 272.4 ; Iron deficiency anemia 280.9 ; Hypothyroidism 244.9 ; Diabetes mellitus without mention of complication, type II or unspecified type, not stated as uncontrolled 250.00 and Hypertension 401.9 [facility] [address] [address] 04 Jun, 2015 [facility] [address] [facility] [id number] [address] [place] [address] Jun, [facility] [address] [facility] [id number] [address] [place] [address] May, Hyperlipidemia 272.4 [facility] [address] [facility] [id number] [address] [place] [address] May, [facility] [address] [id number] [place] [address] May, [facility] [address] [facility] [id number] [place] [address] Apr, Diabetes mellitus without me ntion of complication, type II or unspecified type, not stated as uncontrolled 250.00 ; Hypothyroidism 244.9 ; Hyperlipidemia 272.4 ; Pain in joint, lower leg 719.46 and RUQ pain 789.01 [facility] [address] [place] [id number] [address] [place] [address] Mar, Sinusitis 473.9 [facility] [address] [facility] [id number] [address] [place] [address] Mar, [facility] [address] [place] [id number] [place] [address] Mar, [facility] [address] [facility] [id number] [address] [place] [address] Mar, Hematochezia 578.1 [facility] [address] [facility] [id number] [address] [place] [address] February, Sinusitis 473.9 [facility] [address] [facility] [id number] [address] [place] [address] February, [facility] [address] [facility] [id number] [address] [place] [address] 14 Jan, 2015 [facility] [address] [place] [id number] [address] [place] [address] Jan, [facility] [address] [id number] [facility] [place] [address] Dec, [facility] [address] [id number] [address] [place] [address], [place] [address] Dec, [facility] [address] [id number] [address] [place] [address], [place] [address] Dec, [facility] [address] [id number] [address] [place] [address], [place] [address] Dec, [facility] [address] [id number] [address] [place] [address], [place] [address] Dec, [facility] [address] [id number] [address] [place] [address], [place] [address] Dec, [facility] [address] [id number] [address] [place] [address], [place] [address] Dec, [facility] [address] [id number] [address] [place] [address], [place] [address] Dec, [facility] [address] [id number] [address] [place] [address], [place] [address] Dec, [facility] [address] [id number] [address] [place] [address], [place] [address] Dec, [facility] [address] [id number] [address] [place] [address], [place] [address] Dec, [facility] [address] [id number] [address] [place] [address], [place] [address] Nov, [facility] [address] [id number] [address] [place] [address], [place] [address] Nov, [facility] [address] [id number] [address] [place] [address], [place] [address] Nov, [facility] [address] [id number] [address] [place] [address], [place] [address] Nov, [facility] [address] [id number] [address] [place] [address], [place] [address] Oct, [facility] [address] [id number] [address] [place] [address], [place] [address] Oct, [facility] [address] [id number] [address] [place] [address], [place] [address] Oct, [facility] [address] [id number] [address] [place] [address], [place] [address] Oct, [facility] [address] [id number] [address] [place] [address], [place] [address] Oct, [facility] [address] [id number] [address] [place] [address], [place] [address] Oct, [facility] [address] [id number] [address] [place] [address], [place] [address] Sep, [facility] [address] [id number] [address] [place] [address], [place] [address] Sep, [facility] [address] [id number] [address] [place] [address], [place] [address] Sep, [facility] [address] [id number] [address] [place] [address], [place] [address] Sep, [facility] [address] [id number] [address] [place] [address], [place] [address] Sep, [facility] [address] [id number] [address] [place] [address], [place] [address] Sep, [facility] [address] [id number] [address] [place] [address], [place] [address] Sep, [facility] [address] [id number] [address] [place] [address], [place] [address] Aug, [facility] [address] [id number] [address] [place] [address], [place] [address] Aug, [facility] [address] [id number] [address] [place] [address], [place] [address] Aug, [facility] [address] [id number] [address] [place] [address], [place] [address] Aug, [facility] [address] [id number] [address] [place] [address], [place] [address] Aug, [facility] [address] [id number] [address] [place] [address], [place] [address] Aug, [facility] [address] [id number] [address] [place] [address], [place] [address] Aug, [facility] [address] [id number] [address] [place] [address], [place] [address] Aug, [facility] [address] [id number] [address] [place] [address], [place] [address] Aug, [facility] [address] [id number] [address] [place] [address], [place] [address] Aug, [facility] [address] [id number] [address] [place] [address], [place] [address] Aug, [facility] [address] [id number] [address] [place] [address], [place] [address] Aug, [facility] [address] [id number] [address] [place] [address], [place] [address] Aug, [facility] [address] [id number] [address] [place] [address], [place] [address] Aug, [facility] [address] [id number] [address] [place] [address], [place] [address] Jul, [facility] [address] [id number] [address] [place] [address], [place] [address] Jul, [facility] [address] [id number] [address] [place] [address], [place] [address] Jul, [facility] [address] [id number] [address] [place] [address], [place] [address] Jul, [facility] [address] [id number] [address] [place] [address], [place] [address] 24 Jun, 2013 [facility] [address] [id number] [facility] [place] [address] 24 Sep, 2013 [facility] [address] [id number] [address] [place] [address], [place] [address] 23 Jun, 2013 [facility] [address] [id number] [address] [place] [address], [place] [address] 23 Jun, 2013 [facility] [address] [id number] [address] [place] [address], [place] [address] 19 Jun, 2013 [facility] [address] [id number] [address] [place] [address], [place] [address] 19 Jun, 2013 [facility] [address] [id number] [address] [place] [address], [place] [address] 11 Jun, 2013 [facility] [address] [id number] [address] [place] [address], [place] [address] 11 Jun, 2013 [facility] [address] [id number] [address] [place] [address], [place] [address] 11 Jun, 2013 [facility] [address] [id number] [address] [place] [address], [place] [address] 11 Jun, 2013 [facility] [address] [id number] [address] [place] [address], [place] [address] 10 Jun, 2013 [facility] [address] [id number] [address] [place] [address], [place] [address] 10 Jun, 2013 [facility] [address] [id number] [address] [place] [address], [place] [address] 09 Jun, 2013 [facility] [address] [id number] [address] [place] [address], [place] [address] 09 Jun, 2013 [facility] [address] [id number] [address] [place] [address], [place] [address] 14 May, 2014 [facility] [address] [id number] [address] [place] [address], [place] [address] 14 May, 2014 [facility] [address] [id number] [facility] [place] [address] May, [facility] [address] [id number] [facility] [place] [address] May, [facility] [address] [id number] [facility] [place] [address] May, [facility] [address] [id number] [address] [place] [address], [place] [address] May, [facility] [address] [id number] [address] [place] [address], [place] [address] Apr, [facility] [address] [id number] [address] [place] [address], [place] [address] Apr, [facility] [address] [id number] [address] [place] [address], [place] [address] Apr, [facility] [address] [id number] [address] [place] [address], [place] [address] Apr, [facility] [address] [id number] [address] [place] [address], [place] [address] Apr, [facility] [address] [id number] [address] [place] [address], [place] [address] Apr, [facility] [address] [id number] [address] [place] [address], [place] [address] Apr, [facility] [address] [id number] [address] [place] [address], [place] [address] Apr, [facility] [address] [id number] [address] [place] [address], [place] [address] Apr, [facility] [address] [id number] [address] [place] [address], [place] [address] Apr, [facility] [address] [id number] [address] [place] [address], [place] [address] Apr, [facility] [address] [id number] [address] [place] [address], [place] [address] Mar, [facility] [address] [id number] [address] [place] [address], [place] [address] Mar, [facility] [address] [id number] [address] [place] [address], [place] [address] Mar, [facility] [address] [id number] [address] [place] [address], [place] [address] Mar, [facility] [address] [id number] [address] [place] [address], [place] [address] February, [facility] [address] [id number] [address] [place] [address], [place] [address] February, [facility] [address] [id number] [address] [place] [address], [place] [address] Jan, [facility] [address] [id number] [address] [place] [address], [place] [address] Jan, [facility] [address] [place] [id number] Jan, [facility] [address] [id number] [address] [place] [address], [place] [address] Jan, [facility] [address] [id number] [address] [place] [address], [place] [address] Jan, [facility] [address] [id number] [address] [place] [address], [place] [address] Jan, [facility] [address] [id number] [address] [place] [address], [place] [address] Jan, [facility] [address] [id number] [address] [place] [address], [place] [address] Jan, [facility] [address] [id number] [address] [place] [address], [place] [address] Jan, [facility] [address] [id number] [address] [place] [address], [place] [address] Jan, [facility] [address] [id number] [address] [place] [address], [place] [address] Jan, [facility] [address] [id number] [facility] [place] [address] Jan, [facility] [address] [id number] [address] [place] [address], [place] [address] Jan, [facility] [address] [id number] [address] [place] [address], [place] [address] Jan, [facility] [address] [id number] [address] [place] [address], [place] [address] Jan, [facility] [address] [id number] [address] [place] [address], [place] [address] Jan, [facility] [address] [id number] [address] [place] [address], [place] [address] Jan, [facility] [address] [id number] [address] [place] [address], [place] [address] Dec, [facility] [address] [id number] [address] [place] [address], [place] [address] Dec, [facility] [address] [id number] [address] [place] [address], [place] [address] Dec, [facility] [address] [id number] [address] [place] [address], [place] [address] Dec, [facility] [address] [id number] [address] [place] [address], [place] [address] Dec, [facility] [address] [id number] [address] [place] [address], [place] [address] Dec, [facility] [address] [id number] [address] [place] [address], [place] [address] Dec, [facility] [address] [id number] [address] [place] [address], [place] [address] Nov, [facility] [address] [id number] [address] [place] [address], [place] [address] Nov, [facility] [address] [id number] [address] [place] [address], [place] [address] Nov, [facility] [address] [id number] [address] [place] [address], [place] [address] Nov, [facility] [address] [id number] [address] [place] [address], [place] [address] Nov, [facility] [address] [id number] [address] [place] [address], [place] [address] Nov, [facility] [address] [id number] [address] [place] [address], [place] [address] Nov, [facility] [address] [id number] [address] [place] [address], [place] [address] Oct, [facility] [address] [id number] [address] [place] [address], [place] [address] Oct, [facility] [address] [id number] [address] [place] [address], [place] [address] Sep, [facility] [address] [id number] [address] [place] [address], [place] [address] Sep, [facility] [address] [id number] [address] [place] [address], [place] [address] Sep, [facility] [address] [id number] [address] [place] [address], [place] [address] Sep, [facility] [address] [id number] [address] [place] [address], [place] [address] Sep, [facility] [address] [id number] [address] [place] [address], [place] [address] Sep, [facility] [address] [id number] [address] [place] [address], [place] [address] Sep, [facility] [address] [id number] [address] [place] [address], [place] [address] Sep, [facility] [address] [id number] [address] [place] [address], [place] [address] Sep, [facility] [address] [id number] [address] [address] Sep, [facility] [address] [id number] [address] [place] [address] Aug, [facility] [address] [id number] [address] [place] [address] Aug, [facility] [address] [id number] [address] [place] [address] Aug, [facility] [address] [id number] [address] [place] [address] Aug, [facility] [address] [id number] [address] [place] [address] Aug, [facility] [address] [id number] [address] [place] [address] Jul, [facility] [address] [id number] [address] [place] [address] Jul, [facility] [address] [id number] [address] [place] [address] Jul, [facility] [address] [id number] [address] [place] [address] Jul, IMMUNIZATIONS No Known Immunizations SOCIAL HISTORY [...]
--- OUTSIDE RECORDS SUMMARY | 2020-03-16 11:41 | XMS REPORT ---
Author Author Swathi Benavides Organization [facility] Address [address] [place] [address] Care Team Providers Care Health Care Specialist Name Role Phone WIL Benavides Unavailable PROBLEMS Type Condition ICD9-CM Code ZZC17-MG Code Onset Dates Condition S tatus SNOMED Code Problem Sensorineural hearing loss of right ear H90.41 Active 52361709 Problem Obstructive sleep apnea on CPAP G47.33 Active 33394336 Problem Periodic limb movement sleep disorder G47.61 Active 104440505 Problem Iron deficiency anemia due to chronic blood loss D 50.0 Active 99841311 Problem MACHUCA (nonalcoholic steatohepatitis) K75.81 Active 808751821 Problem Vitamin B12 deficiency E53.8 Active 203919582 Problem Chronic diarrhea K52.9 Active 236 566718 Problem Vitamin D deficiency E55.9 Active 92232812 Problem BMI 50.0-59.9, adult Z68.43 Active 511679751 Problem Fatty liver K76.0 Active 26888637 7 Problem Anxiety F41.9 Active 85016661 Problem Major depressive disorder, recurrent episode, moderate F33.1 Active 925983518 Problem Chronic tension-type headache, intractable G44.221 Active 811170213 Problem Right upper quadrant pain R10.11 Acti ve 28995061 Problem Frequent falls R29.6 Active 86510 2001 Problem Crohn's disease of both small and large intestin e with complication K50.819 Active 89604093 Problem Type 2 diabetes mellitus with other specified complication E11.69 Active 393407225393 Problem Hyperlipidemia, unspecified E78.5 Ac tive 24318907 Problem Mixed stress and urge urinary incontinence N39.46 Active 763922275 Problem Sinusitis chronic, frontal J32.1 Act katlyn 72337176 Problem Seasonal allergies J30.2 Active 4 48963922 Problem Other chronic pain G89.29 Active 8 4406305 Problem Hyperlipidemia E78.5 Active 73549 004 Problem Bilateral primary osteoarthritis of knee M17.0 Active 212025307 Problem Essential hypertension I10 Active 56679274 Problem Acquired hypothyroidism E03.9 Active 055118861 Problem History of hysterectomy for benign disease Z90.710 Active 905400942 Problem Morbid (severe) obesity due to excess calories E66 .01 Active 002214759 Problem Other cirrhosis of liver K74.69 Activ e 12457869 Problem Portal hypertension K76.6 Active 70292480 ALLERGIES No Information ENCOUNTERS Encounter Location Date Diagnosis [place] [address] [address] [facility] [id number] [address] [place] [address] Jan, [place] [address] [address] [facility] [id number] [address] [place] [address] 30 Dec, [id number] [place] [address] Dec, Fever, unspecified fever cau se R50.9 [place] [address] [address] [place] [id number] [address] [place] [address] Dec, Cough R05 and Fever, unspeci fied fever cause R50.9 [place] [address] [address] [facility] [id number] [address] [place] [address] Dec, [place] [address] [address] [place] [id number] [address] [place] [address] Dec, [place] [address] [address] [facility] [id number] [address] [place] [address] Dec, [place] [address] [address] [place] [id number] [address] [place] [address] Nov, MACHUCA (nonalcoholic steatohep atitis) K75.81 ; BMI 50.0-59.9, adult Z68.43 and Type 2 diabetes mellitus with other specified complication E11.69 [place] [address] [address] [place] [id number] [address] [place] [address] Oct, Morbid (severe) obesity due to excess calories E66.01 and Type 2 diabetes mellitus with other specified complication E11.69 [place] [address] [address] [place] [id number] [address] [place] [address] Oct, Essential hypertension I10 ; BMI 50.0-59.9, adult Z68.43 and Morbid (severe) obesity due to excess calories E66.01 [place] [address] [address] [facility] [id number] [address] [place] [address] Oct, [facility]counter for [facility] wellness exam Z00.00 ; Portal hypertension [...] E78.5 and Other cirrhosis of liver K74.69 [place] [address] [address] [facility] [id number] [address] [place] [address] Oct, [place] [address] [address] [place] [id number] [address] [place] [address] Sep, Major depressive disorder, r ecurrent episode, moderate F33.1 ; Vitamin B12 deficiency E53.8 ; BMI 50.0-59.9, adult Z68.43 and Essential hypertension I10 [place] [address] [address] [facility] [id number] [address] [place] [address] Sep, Breast pain, right N64.[address] 340[id number] [address] Sep, Breast pain, right N64.[address] 340[address] [id number] [address] Sep, Breast pain, right N64.[address] 340[address] [id number] [address] Sep, Breast pain, right N64.4 [place] [address] [address] [facility] [id number] [address] [place] [address] Aug, [facility] [address] [facility] [id number] [address] [place] [address] Aug, Major depressive disorder, r ecurrent episode, moderate F33.1 ; BMI 50.0-59.9, adult Z68.43 ; Type 2 diabetes mellitus without complication E11.9 ; Breast pain, right N64.4 and Encounter for screening mammogram for breast cancer Z12.31 [facility] [address] [id number] [address] Jun, Pneumonia of right middle lo be due to infectious organism J18.1 and Cough R05 [facility] [address] [id number] [address] 09 Jun, 2019 Acute nasopharyngitis J00 [id number] [facility] [id number] [address] [place] [address] May, Iron deficiency anemia due t o [...] Major depressive disorder, recurrent episode, moderate F33.1 [facility] [address] [facility] [id number] [address] [place] [address] May, Hyperlipidemia, unspecified E78.5 ; Other cirrhosis of liver K74.69 and Iron deficiency anemia due to chronic blood loss D50.0 [facility] [address] [facility] [id number] [address] [place] [address] February, [facility] [address] [id number] [address] February, Acute recurrent pansinusitis J01.41 [facility] [address] [id number] [address] February, Acute maxillary sinusitis, r ecurrence not specified J01.00 [place] [address] [address] [place] [id number] [address] [place] [address] Jan, Bilateral primary osteoarthr itis of knee M17.0 ; Morbid obesity E66.01 ; Viral syndrome B34.9 and Atrial dilatation, left I51.7 [place] [address] [id number] [place] [address] Jan, [place] [address] [address] Dec, Trigeminy R00.8 [place] [id number] [place] [address] Dec, Essential hypertension I10 ; Morbid obesity E66.01 ; Low back pain M54.5 ; Other chronic pain G89.29 and Pain in right knee M25.561 [place] [address] [address] [place] [id number] [address] [place] [address] Nov, [place] [address] [address] Oct, Palpitations R00.[address] [address] Oct, Encounter for Medicare annua l wellness [...] small and large intestine with complication K50.819 [place] [address] [address] [place] [id number] [address] [place] [address] Oct, [place] [address] [address] [place] [id number] [place] [address] Oct, Crohn's disease of both smal l and large intestine with complication K50.819 [facility] [address] [address] Jul, Sinusitis chronic, frontal J 32.1 ; Acute mucoid otitis media of both ears H65.113 ; Seasonal allergies J30.2 and BMI 50.0-59.9, adult Z68.43 [place] [address] [address] Jul, Essential hypertension I10 ; Type 2 diabetes mellitus with other specified complication E11.69 ; BMI 50.0-59.9, adult Z68.43 ; Mixed stress and urge urinary incontinence N39.46 and Mid back pain on right side M54.9 [place] [address] [address] 26 Jun, 2018 Iron deficiency anemia due t o chronic blood loss D50.0 ; Hyperlipidemia E78.5 ; Type 2 diabetes mellitus with other specified complication E11.69 ; Vitamin B12 deficiency E53.8 and Vitamin D deficiency E55.9 [facility] [address] [address] 14 Jun, 2018 Cough R05 and BMI 50.0-59.9, adult Z68.43 [place] [address] [address] Jun, [place] [address] [address] May, Iron deficiency anemia due t o chronic blood loss D50.0 ; Chronic diarrhea K52.9 ; Essential hypertension I10 ; Type 2 diabetes mellitus with other specified complication E11.69 ; Vitamin D deficiency E55.9 ; Colon stricture K56.699 ; Vitamin B12 deficiency E53.8 ; Hyperlipidemia E78.5 and BMI 50.0-59.9, adult Z68.43 [place] [address] [address] May, [place] [address] [address] [place] [id number] [address] [place] [address] Apr, Nonhealing wound of heel S91 .309A and Body mass index (BMI) of 50- 59.9 in adult Z68.43 [facility] [address] [place] [address] Mar, [place] [address] [address] Mar, BMI 50.0-59.9, adult Z68.43 ; Flank pain R10.9 and Weight loss counseling, encounter for Z71.3 [place] [address] [address] February, [place] [address] [address] Jan, [place] [address] [address] Jan, [facility] [address] [place] [id number] [address] [place] [address] Jan, Diarrhea due to staphylococc us A04.8 and Diarrhea, unspecified type R19.7 [place] [address] [address] [place] [id number] [address] [place] [address] Jan, Acquired hypothyroidism E03. 9 ; Type 2 diabetes mellitus with other specified complication E11.69 ; Hyperlipidemia E78.5 ; Essential hypertension I10 ; Major depressive disorder, recurrent episode, moderate F33.1 and Vitamin D deficiency E55.9 [place] [address] [address] [place] [id number] [address] [place] [address] Jan, Type 2 diabetes mellitus wit h other specified complication E11.69 ; Hyperlipidemia E78.5 ; Essential hypertension I10 ; Acquired hypothyroidism E03.9 ; Major depressive disorder, recurrent episode, moderate F33.1 ; Vitamin D deficiency E55.9 ; Sinus congestion R09.81 and BMI 50.0-59.9, adult Z68.43 [place] [address] [address] [place] [address] Dec, [facility] [address] [place] [id number] [address] [place] [address] Sep, Encounter for immunization Z 23 [facility] [address] [place] [id number] [address] [place] [address] Sep, [facility] [address] [address] Sep, Vitamin B12 deficiency E53.8 [place] [address] [address] [place] [id number] [place] [address] Aug, [place] [address] [address] Aug, BMI 60.0-69.9, adult Z68.44 and Acute non-recurrent maxillary sinusitis J01.00 [place] [address] [address] Aug, [place] [address] [address] [place] [id number] [address] [place] [address] Aug, Medicare annual wellness vis it, initial Z00.00 ; Screening for breast cancer Z12.31 ; BMI 40.0-44.9, adult Z68.41 and Acquired hypothyroidism E03.9 [place] [address] [address] [place] [id number] [address] [place] [address] Jul, Actinic keratosis L57.0 [place] [address] [address] Jul, Actinic keratosis L57.0 [place] [address] [address] [place] [id number] [place] [address] Jul, Type 2 diabetes mellitus wit h other specified complication E11.69 ; Actinic keratosis L57.0 and Hypothyroidism, unspecified E03.9 [place] [address] [address] [place] [id number] [address] [place] [address] Jul, [place] [address] [address] [place] [id number] [address] [place] [address] Jul, [place] [address] [address] Jul, Vitamin B12 deficiency E53.8 [place] [address] [place] [id number] [place] [address] Jun, Acquired hypothyroidism E03. 9 and Chronic tension-type headache, intractable G44.221 [place] [address] [address] [place] [id number] [place] [address] Jun, Back muscle spasm M62.830 an d BMI 50.0-59.9, adult Z68.43 [place] [address] [address] Jun, Vitamin B12 deficiency E53.8 [place] [address] [address] Jun, Crohn's disease of both smal l and large intestine with complication K50.819 [place] [address] [address] Jun, Crohn's disease of both smal l and large intestine with complication K50.819 [place] [address] [address] May, Hyperlipidemia E78.5 ; Anxie ty F41.9 and Essential hypertension I10 [place] [address] [address] May, [place] [address] [address] May, Encounter for immunization Z 23 and Vitamin B12 deficiency E53.8 [place] [address] [address] [place] [id number] [address] [place] [address] May, [place] [address] [address] Apr, [place] [facility] [id number] [address] [place] [address] Apr, [place] [address] [facility] [id number] [address] [place] [address] Apr, Crohn's disease of both smal l and large intestine with complication K50.819 [place] [address] [facility] [id number] [address] [place] [address] Apr, Vitamin B12 deficiency E53.8 [place] [address] [facility] [id number] [address] [place] [address] Apr, Crohn's disease of both smal l and large intestine with complication K50.819 and Acute pain of right shoulder M25.511 [place] [address] [facility] [id number] [address] [place] [address] Mar, Type 2 diabetes mellitus wit hout complication E11.9 ; Frequent falls R29.6 and Other chest pain R07.89 [place] [address] [address] [facility] [id number] [address] [place] [address] Mar, [place] [address] [facility] [id number] [address] [place] [address] Mar, [place] [address] [facility] [id number] [address] [place] [address] Mar, Type 2 diabetes mellitus wit hout complication E11.9 and Blurry vision, bilateral H53.8 [place] [address] [facility] [id number] [address] [place] [address] Mar, Vitamin B12 deficiency E53.8 [place] [address] [facility] [id number] [address] [place] [address] Mar, Crohn's disease of both smal l and large intestine with complication K50.819 [place] [address] [facility] [id number] [address] [place] [address] February, Vitamin B12 deficiency E53.8 [place] [address] [place] [id number] [address] [place] [address] Jan, Crohn's disease of both smal l and large intestine with complication K50.819 [facility] [address] [facility] [id number] [address] [place] [address] Jan, Crohn's disease of both smal l and large intestine with complication K50.819 [facility] [address] [facility] [id number] [address] [place] [address] Jan, Dark brown-colored urine R82 .99 and Acute suppurative otitis media of right ear without spontaneous rupture of tympanic membrane, recurrence not specified H66.001 [place] [address] [facility] [id number] [address] [place] [address] Jan, Encounter for immunization Z 23 [place] [address] [facility] [id number] [address] [place] [address] Dec, Crohn's disease of both smal l and large intestine with complication K50.819 and Eustachian tube dysfunction, right H69.81 [place] [address] [facility] [id number] [address] [place] [address] Dec, [place] [address] [facility] [id number] [address] [place] [address] Dec, Contusion of right knee, ini tial encounter S80.01XA [place] [address] [address] [place] [id number] [address] [place] [address] Dec, [place] [address] [facility] [id number] [address] [place] [address] Dec, Acute pain of right knee M25 .561 [place] [address] [address] [place] [id number] [address] [place] [address] Dec, Iron deficiency anemia due t o chronic blood loss D50.0 [place] [address] [place] [id number] [address] [place] [address] Dec, Hyperlipidemia E78.5 ; Type 2 diabetes mellitus without complication E11.9 ; Vitamin B12 deficiency E53.8 ; Essential hypertension I10 ; Obstructive sleep apnea on CPAP G47.33 and Periodic limb movement sleep disorder G47.61 [facility] [address] [facility] [id number] [address] [place] [address] 22 Nov, 2016 Type 2 diabetes mellitus wit hout complication E11.9 ; Vitamin B12 deficiency E53.8 ; Hyperlipidemia E78.5 ; Essential hypertension I10 ; Obstructive sleep apnea on CPAP G47.33 ; Periodic limb movement sleep disorder G47.61 ; Anxiety F41.9 ; Acquired hypothyroidism E03.9 and Chronic tension-type headache, intractable G44.221 [place] [address] [facility] [id number] [address] [place] [address] Nov, Crohn's disease of both smal l and large intestine with complication K50.819 [place] [address] [facility] [id number] [address] [place] [address] Nov, Vitamin B12 deficiency E53.8 [place] [address] [facility] [id number] [address] [place] [address] Oct, [place] [address] [facility] [id number] [address] [place] [address] Oct, Vitamin B12 deficiency E53.8 [place] [address] [facility] [id number] [address] [place] [address] Sep, [facility] [address] [facility] [id number] [address] [place] [address] 15 Sep, 2016 Vitamin B12 deficiency E53.8 [place] [address] [facility] [id number] [address] [place] [address] Aug, [place] [address] [facility] [id number] [address] [place] [address] 14 Aug, 2016 Vitamin B12 deficiency E53.8 [place] [address] [facility] [id number] [address] [place] [address] Aug, [place] [address] [address] Jul, Elevated ALT measurement R74 .0 [place] [address] [address] Jul, Hematuria R31.9 ; Acute righ t-sided thoracic back pain M54.6 ; Major depressive disorder, recurrent episode, moderate F33.1 and Elevated ALT measurement R74.0 [place] [address] [address] Jul, [place] [address] [address] Jul, Elevated ALT measurement R74 .0 [place] [address] [address] Jul, Iron deficiency anemia due t o chronic blood loss D50.0 [place] [address] [address] Jul, Type 2 diabetes mellitus wit hout complication E11.9 ; Acquired hypothyroidism E03.9 ; Iron deficiency anemia due to chronic blood loss D50.0 ; Hyperlipidemia E78.5 and Essential hypertension I10 [place] [address] [address] Jun, [place] [address] [address] Jun, Vitamin B12 deficiency E53.8 [place] [address] [address] 16 Jun, 2016 Type 2 diabetes mellitus wit hout complication E11.9 ; Acquired hypothyroidism E03.9 ; Iron deficiency anemia due to chronic blood loss D50.0 ; Hyperlipidemia E78.5 ; Essential hypertension I10 ; Chronic tension-type headache, intractable G44.221 ; Pulsatile tinnitus, bilateral H93.13 ; Obstructive sleep apnea on CPAP G47.33 and Major depressive disorder, recurrent episode, moderate F33.1 [place] [address] [address] May, Vitamin B12 deficiency E53.8 [facility] [address] [facility] [id number] [address] [place] [address] 08 May, 2016 [facility] [address] [facility] [id number] [address] [place] [address] Apr, Vitamin B12 deficiency E53.8 [facility] [address] [facility] [id number] [address] [place] [address] Apr, [facility] [address] [facility] [id number] [address] [place] [address] Mar, Chronic tension-type headach e, intractable G44.221 and Major depressive disorder, recurrent episode, moderate F33.1 [facility] [address] [facility] [id number] [address] [place] [address] Mar, Vitamin B12 deficiency E53.8 [facility] [address] [place] [id number] [address] [place] [address] February, [facility] [address] [facility] [id number] [address] [place] [address] February, Vitamin B12 deficiency E53.8 [facility] [address] [facility] [id number] [address] [place] [address] February, [facility] [address] [place] [id number] [address] [place] [address] Jan, Dysuria R30.0 [facility] [address] [facility] [id number] [address] [place] [address] 22 Jan, 2016 Type 2 diabetes mellitus wit hout complication E11.9 and Essential hypertension I10 [facility] [address] [facility] [id number] [address] [place] [address] 15 Jan, 2016 Chronic diarrhea K52.9 [facility] [address] [facility] [id number] [address] [place] [address] 13 Jan, 2016 [facility] [address] [place] [id number] [address] [place] [address] Jan, Chronic diarrhea K52.9 [facility] [address] [facility] [id number] [address] [place] [address] Jan, [facility] [address] [facility] [id number] [address] [place] [address] Jan, Dysuria R30.0 [facility] [address] [facility] [id number] [address] [place] [address] Jan, Vitamin B12 deficiency E53.8 [facility] [address] [facility] [id number] [address] [place] [address] 07 Jan, 2016 Dysuria R30.0 and Iron defic iency anemia due to chronic blood loss D50.0 [facility] [address] [facility] [id number] [address] [place] [phone] 05 Jan, 2016 Dysuria R30.0 [facility] [address] [place] [id number] [address] [place] [phone] Jan, [facility] [address] [facility] [id number] [address] [place] [phone] 15 Dec, 2015 [facility] [address] [facility] [id number] [address] [place] [phone] 11 Dec, 2015 Iron deficiency anemia due t o chronic blood loss D50.0 [facility] [address] [facility] [id number] [address] [place] [id number] 10 Dec, 2015 Dysuria R30.0 ; Fatigue R53. 83 ; Hyperlipidemia E78.5 and Diarrhea R19.7 [facility] [facility] [address] [facility] [id number] [address] [place] [address] Dec, [facility] [address] [id number] [address] [place] [address] 02 Dec, 2015 [facility] [address] [facility] [id number] [address] [place] [address] 10 Nov, 2015 Vitamin B12 deficiency E53.8 [facility] [address] [id number] [address] [place] [address] Oct, Vitamin B12 deficiency E53.8 [facility] [address] [facility] [id number] [address] [place] [address] Oct, [facility] [address] [facility] [id number] [address] [place] [id number] 09 Oct, 2015 Headache R51 [facility] [address] [id number] [address] [place] [address] 07 Oct, 2015 Essential hypertension I10 ; Type 2 diabetes mellitus without complication E11.9 ; Vitamin B12 deficiency E53.8 ; Acquired hypothyroidism E03.9 ; Iron deficiency anemia due to chronic blood loss D50.0 and Hyperlipidemia E78.5 [facility] [address] [id number] [address] [place] [address] Sep, Essential hypertension I10 ; Vitamin B12 deficiency E53.8 ; Iron deficiency anemia due to chronic blood loss D50.0 ; Type 2 diabetes mellitus without complication E11.9 ; Hyperlipidemia E78.5 and Acquired hypothyroidism E03.9 [facility] [id number] [place] [address] Sep, [facility] [address] [address] Sep, [facility] [address] [id number] [address] [place] [address] Jul, [facility] [address] [id number] [address] [place] [id number] Jun, [facility] [address] [id number] [address] [place] [address] Jun, [facility] [address] [id number] 15 Jun, 2015 Hyperlipidemia 272.4 ; Iron deficiency anemia 280.9 ; Hypothyroidism 244.9 ; Diabetes mellitus without mention of complication, type II or unspecified type, not stated as uncontrolled 250.00 and Hypertension 401.9 [facility] [address] [id number] [address] [place] [id number] 04 Jun, 2015 [facility] [address] [facility] [id number] [address] [place] [address] Jun, [facility] [address] [facility] [id number] [address] [place] [address] May, Hyperlipidemia 272.4 [facility] [address] [facility] [id number] [place] [address] May, [facility] [id number] [place] [address] May, [facility] [id number] [place] [address] Apr, Diabetes mellitus without me ntion of complication, type II or unspecified type, not stated as uncontrolled 250.00 ; Hypothyroidism 244.9 ; Hyperlipidemia 272.4 ; Pain in joint, lower leg 719.46 and RUQ pain 789.01 [facility] [address] [id number] [address] [place] [address] Mar, Sinusitis 473.9 [facility] [id number] [place] [address] Mar, [facility] [id number] [place] [address] Mar, [facility] [address] [facility] [id number] [address] [place] [address] Mar, Hematochezia 578.1 [facility] [address] [facility] [id number] [address] [place] [address] February, Sinusitis 473.9 [facility] [address] [id number] [address] [place] [phone] February, [facility] [address] [facility] [id number] [address] [place] [id number] Jan, [facility] [id number] [place] [address] Jan, [facility] [address] [id number] [address] [place] [address], [place] [address] Dec, [facility] [address] [id number] [address] [place] [address], [place] [address] Dec, [facility] [address] [id number] [address] [place] [address], [place] [address] Dec, [facility] [address] [id number] [address] [place] [address], [place] [address] Dec, [facility] [address] [id number] [address] [place] [address], [place] [address] Dec, [facility] [address] [id number] [address] [place] [address], [place] [address] Dec, [facility] [address] [id number] [address] [place] [address], [place] [address] Dec, [facility] [address] [id number] [address] [place] [address], [place] [address] Dec, [facility] [address] [id number] [address] [place] [address], [place] [address] Dec, [facility] [address] [id number] [address] [place] [address], [place] [address] Dec, [facility] [address] [id number] [address] [place] [address], [place] [address] Dec, [facility] [address] [id number] [address] [place] [address], [place] [address] Nov, [facility] [address] [id number] [address] [place] [address], [place] [address] Nov, [facility] [address] [id number] [address] [place] [address], [place] [address] Nov, [facility] [address] [id number] [address] [place] [address], [place] [address] Nov, [facility] [address] [id number] [address] [place] [address], [place] [address] Oct, [facility] [address] [id number] [address] [place] [address], [place] [address] Oct, [facility] [address] [id number] [address] [place] [address], [place] [address] Oct, [facility] [address] [id number] [address] [place] [address], [place] [address] Oct, [facility] [address] [id number] [address] [place] [address], [place] [address] Oct, [facility] [address] [id number] [address] [place] [address], [place] [address] Oct, [facility] [address] [id number] [address] [place] [address], [place] [address] Sep, [facility] [address] [id number] [address] [place] [address], [place] [address] Sep, [facility] [address] [id number] [address] [place] [address], [place] [address] Sep, [facility] [address] [id number] [address] [place] [address], [place] [address] Sep, [facility] [address] [id number] [address] [place] [address], [place] [address] Sep, [facility] [address] [id number] [address] [place] [address], [place] [address] Sep, [facility] [address] [id number] [address] [place] [address], [place] [address] Sep, [facility] [address] [id number] [address] [place] [address], [place] [address] Aug, [facility] [address] [id number] [address] [place] [address], [place] [address] Aug, [facility] [address] [id number] [address] [place] [address], [place] [address] Aug, [facility] [address] [id number] [address] [place] [address], [place] [address] Aug, [facility] [address] [id number] [address] [place] [address], [place] [address] Aug, [facility] [address] [id number] [address] [place] [address], [place] [address] Aug, [facility] [address] [id number] [address] [place] [address], [place] [address] Aug, [facility] [address] [id number] [address] [place] [address], [place] [address] Aug, [facility] [address] [id number] [address] [place] [address], [place] [address] Aug, [facility] [address] [id number] [address] [place] [address], [place] [address] Aug, [facility] [address] [id number] [address] [place] [address], [place] [address] Aug, [facility] [address] [id number] [address] [place] [address], [place] [address] Aug, [facility] [address] [id number] [address] [place] [address] Aug, [facility] [address] [id number] [address] [place] [address] Aug, [facility] [address] [id number] [address] [place] [address] Jul, [facility] [address] [id number] [address] [place] [address] Jul, [facility] [address] [id number] [address] [place] [address] Jul, [facility] [address] [id number] [address] [place] [address] Jul, [facility] [address] [id number] [address] [place] [address] 24 Jun, 2013 [facility] [address] [id number] [address] [place] [address], [place] [address] 24 Sep, 2013 [facility] [address] [id number] [address] [place] [address], [place] [address] 23 Jun, 2013 [facility] [address] [id number] [address] [place] [address], [place] [address] 23 Jun, 2013 [facility] [address] [id number] [address] [place] [address], [place] [address] 19 Jun, 2013 [facility] [address] [id number] [address] [place] [address], [place] [address] 19 Jun, 2013 [facility] [address] [id number] [address] [place] [address], [place] [address] 11 Jun, 2013 [facility] [address] [id number] [address] [place] [address], [place] [address] 11 Jun, 2013 [facility] [address] [id number] [address] [place] [address], [place] [address] 11 Jun, 2013 [facility] [address] [id number] [address] [place] [address], [place] [address] 11 Jun, 2013 [facility] [address] [id number] [address] [place] [address], [place] [address] 10 Jun, 2013 [facility] [address] [id number] [address] [place] [address], [place] [address] 10 Jun, 2013 [facility] [address] [id number] [address] [place] [address], [place] [address] 09 Jun, 2013 [facility] [address] [id number] [address] [place] [address], [place] [address] 09 Jun, 2013 [facility] [address] [id number] [address] [place] [address], [place] [address] 14 May, 2014 [facility] [address] [id number] [address] [place] [address], [place] [address] 14 May, 2014 [facility] [address] [id number] [facility] [address] May, [facility] [address] [id number] [facility] [address] May, [facility] [address] [id number] [facility] [address] May, [facility] [address] [id number] [facility] [address] May, [facility] [address] [id number] [facility] [address] Apr, [facility] [address] [id number] [address] [place] [address], [place] [address] Apr, [facility] [address] [id number] [address] [place] [address], [place] [address] Apr, [facility] [address] [id number] [address] [place] [address], [place] [address] Apr, [facility] [address] [id number] [address] [place] [address], [place] [address] Apr, [facility] [address] [id number] [address] [place] [address], [place] [address] Apr, [facility] [address] [id number] [address] [place] [address], [place] [address] Apr, [facility] [address] [id number] [address] [place] [address], [place] [address] Apr, [facility] [address] [id number] [address] [place] [address], [place] [address] Apr, [facility] [address] [id number] [address] [place] [address], [place] [address] Apr, [facility] [address] [id number] [address] [place] [address], [place] [address] Apr, [facility] [address] [id number] [address] [place] [address], [place] [address] Mar, [facility] [address] [id number] [address] [place] [address], [place] [address] Mar, [facility] [address] [id number] [address] [place] [address], [place] [address] Mar, [facility] [address] [id number] [address] [place] [address], [place] [address] Mar, [facility] [address] [id number] [address] [place] [address], [place] [address] February, [facility] [address] [id number] [address] [place] [address], [place] [address] February, [facility] [address] [id number] [address] [place] [address], [place] [address] Jan, [facility] [address] [id number] [address] [place] [address], [place] [address] Jan, [address] [id number] Jan, [facility] [address] [id number] [address] [place] [address], [place] [address] Jan, [facility] [address] [id number] [address] [place] [address], [place] [address] Jan, [facility] [address] [id number] [address] [place] [address], [place] [address] Jan, [facility] [address] [id number] [address] [place] [address], [place] [address] Jan, [facility] [address] [id number] [address] [place] [address], [place] [address] Jan, [facility] [address] [id number] [address] [place] [address], [place] [address] Jan, [facility] [address] [id number] [address] [place] [address], [place] [address] Jan, [facility] [address] [id number] [address] [place] [address], [place] [address] Jan, [facility] [address] [id number] [facility] [address] Jan, [facility] [address] [id number] [address] [place] [address], [place] [address] Jan, [facility] [address] [id number] [address] [place] [address], [place] [address] Jan, [facility] [address] [id number] [address] [place] [address], [place] [address] Jan, [facility] [address] [id number] [address] [place] [address], [place] [address] Jan, [facility] [address] [id number] [address] [place] [address], [place] [address] Jan, [facility] [address] [id number] [address] [place] [address], [place] [address] Dec, [facility] [address] [id number] [address] [place] [address], [place] [address] Dec, [facility] [address] [id number] [address] [place] [address], [place] [address] Dec, [facility] [address] [id number] [address] [place] [address], [place] [address] Dec, [facility] [address] [id number] [address] [place] [address], [place] [address] Dec, [facility] [address] [id number] [address] [place] [address], [place] [address] Dec, [facility] [address] [id number] [address] [place] [address], [place] [address] Dec, [facility] [address] [id number] [address] [place] [address], [place] [address] Nov, [facility] [address] [id number] [address] [place] [address], [place] [address] Nov, [facility] [address] [id number] [address] [place] [address], [place] [address] Nov, [facility] [address] [id number] [address] [place] [address], [place] [address] Nov, [facility] [address] [id number] [address] [place] [address], [place] [address] Nov, [facility] [address] [id number] [address] [place] [address], [place] [address] Nov, [facility] [address] [id number] [address] [place] [address], [place] [address] Nov, [facility] [address] [id number] [address] [place] [address], [place] [address] Oct, [facility] [address] [id number] [address] [place] [address], [place] [address] Oct, [facility] [address] [id number] [address] [place] [address], [place] [address] Sep, [facility] [address] [id number] [address] [place] [address], [place] [address] Sep, [facility] [address] [id number] [address] [place] [address], [place] [address] Sep, [facility] [address] [id number] [address] [place] [address], [place] [address] Sep, [facility] [address] [id number] [address] [place] [address], [place] [address] Sep, [facility] [address] [id number] [address] [place] [address], [place] [address] Sep, [facility] [address] [id number] [address] [place] [address], [place] [address] Sep, [facility] [address] [id number] [address] [place] [address], [place] [address] Sep, [facility] [address] [id number] [address] [place] [address], [place] [address] Sep, [facility] [address] [id number] [address] [place] [address] Sep, [facility] [address] [id number] [address] [place] [address] Aug, [facility] [address] [id number] [address] [place] [address] Aug, [facility] [address] [id number] [address] [place] [id number] Aug, [facility] [address] [id number] [address] [place] [phone] Aug, [facility] [address] [id number] [address] [place] [id number] Aug, [facility] [address] [id number] [address] [place] [id number] Jul, [facility] [address] [id number] [address] [place] [phone] Jul, [facility] [address] [id number] [address] [place] [phone] Jul, [facility] [address] [id number] [address] [place] [phone] Jul, IMMUNIZATIONS No Known Immunizations SOCIAL HISTORY Never Assessed REASON FOR VISIT PLAN OF CARE VITAL SIGNS Height 62 in 2014-09-10 Weight 281.4 lbs 2014-09-10 Temperature 97.7 degrees Fahrenheit 2014-09-10 Heart Rate 88 bpm 2014-09-10 Respiratory Rate 20 2014-09-10 Blood pressure systolic 122 mmHg 2014-09-10 Blood pressure diastolic 88 mmHg 2014-09-10 MEDICATIONS Unknown Medications RESULTS No Results PROCEDURES [...]
--- OUTSIDE RECORDS SUMMARY | 2020-03-16 11:42 | XMS REPORT ---
Author Author Swathi Benavides Organization [facility] Address [address] [place] [address] Care Team Providers Care Bulb Packer Name Role Phone WIL Benavides Unavailable PROBLEMS Type Condition ICD9-CM Code TXN20-FE Code Onset Dates Condition S tatus SNOMED Code Problem Sensorineural hearing loss of right ear H90.41 Active 08888146 Problem Obstructive sleep apnea on CPAP G47.33 Active 99524489 Problem Periodic limb movement sleep disorder G47.61 Active 296760351 Problem Iron deficiency anemia due to chronic blood loss D 50.0 Active 63602261 Problem MACHUCA (nonalcoholic steatohepatitis) K75.81 Active 883885987 Problem Vitamin B12 deficiency E53.8 Active 015873282 Problem Chronic diarrhea K52.9 Active 236 917967 Problem Vitamin D deficiency E55.9 Active 64141870 Problem BMI 50.0-59.9, adult Z68.43 Active 864436840 Problem Fatty liver K76.0 Active 38060945 7 Problem Anxiety F41.9 Active 15026864 Problem Major depressive disorder, recurrent episode, moderate F33.1 Active 742627712 Problem Chronic tension-type headache, intractable G44.221 Active 238804866 Problem Right upper quadrant pain R10.11 Acti ve 80361548 Problem Frequent falls R29.6 Active 54006 2001 Problem Crohn's disease of both small and large intestin e with complication K50.819 Active 33737067 Problem Type 2 diabetes mellitus with other specified complication E11.69 Active 742849528693 Problem Hyperlipidemia, unspecified E78.5 Ac tive 11110808 Problem Mixed stress and urge urinary incontinence N39.46 Active 753370720 Problem Sinusitis chronic, frontal J32.1 Act katlyn 66583988 Problem Seasonal allergies J30.2 Active 4 23396259 Problem Other chronic pain G89.29 Active 8 4621374 Problem Hyperlipidemia E78.5 Active 50451 004 Problem Bilateral primary osteoarthritis of knee M17.0 Active 114325275 Problem Essential hypertension I10 Active 84505190 Problem Acquired hypothyroidism E03.9 Active 909867752 Problem History of hysterectomy for benign disease Z90.710 Active 957176918 Problem Morbid (severe) obesity due to excess calories E66 .01 Active 257026476 Problem Other cirrhosis of liver K74.69 Activ e 54207249 Problem Portal hypertension K76.6 Active 38877900 ALLERGIES No Information ENCOUNTERS Encounter Location Date Diagnosis [place] [address] [address] [facility] [id number] [address] [place] [address] Jan, [place] [address] [facility] [id number] [address] [place] [address] 30 Dec, [id number] [place] [address] Dec, Fever, unspecified fever cau se R50.9 [place] [address] [address] [place] [id number] [address] [place] [address] Dec, Cough R05 and Fever, unspeci fied fever cause R50.9 [place] [address] [facility] [id number] [address] [place] [address] Dec, [place] [address] [address] [place] [id number] [address] [place] [address] Dec, [place] [address] [facility] [id number] [address] [place] [address] Dec, [place] [address] [address] [place] [id number] [address] [place] [address] Nov, MACHUCA (nonalcoholic steatohep atitis) K75.81 ; BMI 50.0-59.9, adult Z68.43 and Type 2 diabetes mellitus with other specified complication E11.69 [place] [address] [address] [place] [id number] [address] [place] [address] Oct, Morbid (severe) obesity due to excess calories E66.01 and Type 2 diabetes mellitus with other specified complication E11.69 [place] [address] [address] [place] [id number] [address] [place] [address] Oct, Essential hypertension I10 ; BMI 50.0-59.9, adult Z68.43 and Morbid (severe) obesity due to excess calories E66.01 [place] [address] [facility] [id number] [address] [place] [address] Oct, [facility]counter [facility] Z00.00 ; Portal hypertension K76.6 [...] E78.5 and Other cirrhosis of liver K74.69 [place] [address] [facility] [id number] [address] [place] [address] Oct, [place] [address] [address] [place] [id number] [address] [place] [address] Sep, Major depressive disorder, r ecurrent episode, moderate F33.1 ; Vitamin B12 deficiency E53.8 ; BMI 50.0-59.9, adult Z68.43 and Essential hypertension I10 [place] [address] [facility] [id number] [address] [place] [address] Sep, Breast pain, right N64.[id number] [address] Sep, Breast pain, right N64.[address] [id number] [address] Sep, Breast pain, right N64.[id number] [address] Sep, Breast pain, right N64.4 [place] [address] [facility] [id number] [address] [place] [address] Aug, [facility] [address] [facility] [id number] [address] [place] [address] Aug, Major depressive disorder, r ecurrent episode, moderate F33.1 ; BMI 50.0-59.9, adult Z68.43 ; Type 2 diabetes mellitus without complication E11.9 ; Breast pain, right N64.4 and Encounter for screening mammogram for breast cancer Z12.31 [facility] [address] [id number] [address] Jun, Pneumonia of right middle lo be due to infectious organism J18.1 and Cough R05 [facility] [address] [id number] [address] 09 Jun, 2019 Acute nasopharyngitis J00 [place] [address] [facility] [id number] [address] [place] [address] May, Iron deficiency anemia due t o [...] Major depressive disorder, recurrent episode, moderate F33.1 [facility] [address] [facility] [id number] [address] [place] [address] May, Hyperlipidemia, unspecified E78.5 ; Other cirrhosis of liver K74.69 and Iron deficiency anemia due to chronic blood loss D50.0 [facility] [address] [facility] [id number] [address] [place] [address] February, [facility] [address] [id number], [place] [address] February, Acute recurrent pansinusitis J01.41 [facility] [address] [id number] [address] February, Acute maxillary sinusitis, r ecurrence not specified J01.00 [place] [address] [address] [place] [id number] [address] [place] [address] Jan, Bilateral primary osteoarthr itis of knee M17.0 ; Morbid obesity E66.01 ; Viral syndrome B34.9 and Atrial dilatation, left I51.7 [place] [address] [place] [address] Jan, [place] [address] [address] Dec, Trigeminy R00.8 [place] [id number] [place] [address] Dec, Essential hypertension I10 ; Morbid obesity E66.01 ; Low back pain M54.5 ; Other chronic pain G89.29 and Pain in right knee M25.561 [place] [address] [address] [place] [id number] [place] [address] Nov, [place] [address] [address] Oct, Palpitations R00.[address] [address] Oct, Encounter for Medicare annua l wellness [...] small and large intestine with complication K50.819 [place] [address] [place] [id number] [address] [place] [address] Oct, [place] [address] [place] [id number] [place] [address] Oct, Crohn's disease of both smal l and large intestine with complication K50.819 [facility] [address] [address] Jul, Sinusitis chronic, frontal J 32.1 ; Acute mucoid otitis media of both ears H65.113 ; Seasonal allergies J30.2 and BMI 50.0-59.9, adult Z68.43 [place] [address] [address] Jul, Essential hypertension I10 ; Type 2 diabetes mellitus with other specified complication E11.69 ; BMI 50.0-59.9, adult Z68.43 ; Mixed stress and urge urinary incontinence N39.46 and Mid back pain on right side M54.9 [place] [address] [address] 26 Jun, 2018 Iron deficiency anemia due t o chronic blood loss D50.0 ; Hyperlipidemia E78.5 ; Type 2 diabetes mellitus with other specified complication E11.69 ; Vitamin B12 deficiency E53.8 and Vitamin D deficiency E55.9 [facility] [address] [address] 14 Jun, 2018 Cough R05 and BMI 50.0-59.9, adult Z68.43 [place] [address] [address] Jun, [place] [address] [address] May, Iron deficiency anemia due t o chronic blood loss D50.0 ; Chronic diarrhea K52.9 ; Essential hypertension I10 ; Type 2 diabetes mellitus with other specified complication E11.69 ; Vitamin D deficiency E55.9 ; Colon stricture K56.699 ; Vitamin B12 deficiency E53.8 ; Hyperlipidemia E78.5 and BMI 50.0-59.9, adult Z68.43 [place] [address] [address] May, [place] [address] [place] [id number] [address] [place] [address] Apr, Nonhealing wound of heel S91 .309A and Body mass index (BMI) of 50- 59.9 in adult Z68.43 [facility] [address] [place] [address] Mar, [place] [address] [address] Mar, BMI 50.0-59.9, adult Z68.43 ; Flank pain R10.9 and Weight loss counseling, encounter for Z71.3 [place] [address] [address] February, [place] [address] [address] Jan, [place] [address] [address] Jan, [facility] [address] [place] [id number] [address] [place] [address] Jan, Diarrhea due to staphylococc us A04.8 and Diarrhea, unspecified type R19.7 [place] [address] [place] [id number] [address] [place] [address] Jan, Acquired hypothyroidism E03. 9 ; Type 2 diabetes mellitus with other specified complication E11.69 ; Hyperlipidemia E78.5 ; Essential hypertension I10 ; Major depressive disorder, recurrent episode, moderate F33.1 and Vitamin D deficiency E55.9 [place] [address] [place] [id number] [place] [address] Jan, Type 2 diabetes mellitus wit h other specified complication E11.69 ; Hyperlipidemia E78.5 ; Essential hypertension I10 ; Acquired hypothyroidism E03.9 ; Major depressive disorder, recurrent episode, moderate F33.1 ; Vitamin D deficiency E55.9 ; Sinus congestion R09.81 and BMI 50.0-59.9, adult Z68.43 [place] [address] [place] [address] Dec, [facility] [address] [place] [id number] [address] [place] [address] Sep, Encounter for immunization Z 23 [facility] [address] [place] [id number] [address] [place] [address] Sep, [facility] [address] [address] Sep, Vitamin B12 deficiency E53.8 [place] [address] [place] [id number] [place] [address] Aug, [place] [address] [address] Aug, BMI 60.0-69.9, adult Z68.44 and Acute non-recurrent maxillary sinusitis J01.00 [place] [address] [address] Aug, [place] [address] [place] [id number] [address] [place] [address] Aug, Medicare annual wellness vis it, initial Z00.00 ; Screening for breast cancer Z12.31 ; BMI 40.0-44.9, adult Z68.41 and Acquired hypothyroidism E03.9 [place] [address] [place] [id number] [address] [place] [address] Jul, Actinic keratosis L57.0 [place] [address] [address] Jul, Actinic keratosis L57.0 [place] [address] [place] [id number] [place] [address] Jul, Type 2 diabetes mellitus wit h other specified complication E11.69 ; Actinic keratosis L57.0 and Hypothyroidism, unspecified E03.9 [place] [address] [place] [id number] [address] [place] [address] Jul, [place] [address] [place] [id number] [address] [place] [address] Jul, [place] [address] [address] Jul, Vitamin B12 deficiency E53.8 [place] [address] [place] [id number] [place] [address] Jun, Acquired hypothyroidism E03. 9 and Chronic tension-type headache, intractable G44.221 [place] [address] [place] [id number] [place] [address] Jun, Back muscle spasm M62.830 an d BMI 50.0-59.9, adult Z68.43 [place] [address] [address] Jun, Vitamin B12 deficiency E53.8 [place] [address] [address] Jun, Crohn's disease of both smal l and large intestine with complication K50.819 [place] [address] [address] Jun, Crohn's disease of both smal l and large intestine with complication K50.819 [place] [address] [address] May, Hyperlipidemia E78.5 ; Anxie ty F41.9 and Essential hypertension I10 [place] [address] [address] May, [place] [address] [address] May, Encounter for immunization Z 23 and Vitamin B12 deficiency E53.8 [place] [address] [place] [id number] [address] [place] [address] May, [place] [address] [address] Apr, [place] [address] [address] [facility] [id number] [address] [place] [address] Apr, [place] [address] [facility] [id number] [address] [place] [address] Apr, Crohn's disease of both smal l and large intestine with complication K50.819 [place] [address] [facility] [id number] [address] [place] [address] Apr, Vitamin B12 deficiency E53.8 [place] [address] [facility] [id number] [address] [place] [address] Apr, Crohn's disease of both smal l and large intestine with complication K50.819 and Acute pain of right shoulder M25.511 [place] [address] [facility] [id number] [address] [place] [address] Mar, Type 2 diabetes mellitus wit hout complication E11.9 ; Frequent falls R29.6 and Other chest pain R07.89 [place] [address] [facility] [id number] [address] [place] [address] Mar, [place] [address] [facility] [id number] [address] [place] [address] Mar, [place] [address] [facility] [id number] [address] [place] [address] Mar, Type 2 diabetes mellitus wit hout complication E11.9 and Blurry vision, bilateral H53.8 [place] [address] [facility] [id number] [address] [place] [address] Mar, Vitamin B12 deficiency E53.8 [place] [address] [facility] [id number] [address] [place] [address] Mar, Crohn's disease of both smal l and large intestine with complication K50.819 [place] [address] [facility] [id number] [address] [place] [address] February, Vitamin B12 deficiency E53.8 [place] [address] [place] [id number] [address] [place] [address] Jan, Crohn's disease of both smal l and large intestine with complication K50.819 [facility] [address] [facility] [id number] [address] [place] [address] Jan, Crohn's disease of both smal l and large intestine with complication K50.819 [facility] [address] [facility] [id number] [address] [place] [address] Jan, Dark brown-colored urine R82 .99 and Acute suppurative otitis media of right ear without spontaneous rupture of tympanic membrane, recurrence not specified H66.001 [place] [address] [facility] [id number] [address] [place] [address] Jan, Encounter for immunization Z 23 [place] [address] [facility] [id number] [address] [place] [address] Dec, Crohn's disease of both smal l and large intestine with complication K50.819 and Eustachian tube dysfunction, right H69.81 [place] [address] [facility] [id number] [address] [place] [address] Dec, [place] [address] [facility] [id number] [address] [place] [address] Dec, Contusion of right knee, ini tial encounter S80.01XA [place] [address] [place] [id number] [address] [place] [address] Dec, [place] [address] [facility] [id number] [address] [place] [address] Dec, Acute pain of right knee M25 .561 [place] [address] [place] [id number] [address] [place] [address] Dec, Iron deficiency anemia due t o chronic blood loss D50.0 [place] [address] [place] [id number] [address] [place] [address] Dec, Hyperlipidemia E78.5 ; Type 2 diabetes mellitus without complication E11.9 ; Vitamin B12 deficiency E53.8 ; Essential hypertension I10 ; Obstructive sleep apnea on CPAP G47.33 and Periodic limb movement sleep disorder G47.61 [facility] [address] [facility] [id number] [address] [place] [address] 22 Nov, 2016 Type 2 diabetes mellitus wit hout complication E11.9 ; Vitamin B12 deficiency E53.8 ; Hyperlipidemia E78.5 ; Essential hypertension I10 ; Obstructive sleep apnea on CPAP G47.33 ; Periodic limb movement sleep disorder G47.61 ; Anxiety F41.9 ; Acquired hypothyroidism E03.9 and Chronic tension-type headache, intractable G44.221 [place] [address] [facility] [id number] [address] [place] [address] Nov, Crohn's disease of both smal l and large intestine with complication K50.819 [place] [address] [facility] [id number] [address] [place] [address] Nov, Vitamin B12 deficiency E53.8 [place] [address] [facility] [id number] [address] [place] [address] Oct, [place] [address] [facility] [id number] [address] [place] [address] Oct, Vitamin B12 deficiency E53.8 [place] [address] [facility] [id number] [address] [place] [address] Sep, [facility] [address] [facility] [id number] [address] [place] [address] 15 Sep, 2016 Vitamin B12 deficiency E53.8 [place] [address] [facility] [id number] [address] [place] [address] Aug, [place] [address] [facility] [id number] [address] [place] [address] 14 Aug, 2016 Vitamin B12 deficiency E53.8 [place] [address] [facility] [id number] [address] [place] [address] Aug, [place] [address] [address] Jul, Elevated ALT measurement R74 .0 [place] [address] [address] Jul, Hematuria R31.9 ; Acute righ t-sided thoracic back pain M54.6 ; Major depressive disorder, recurrent episode, moderate F33.1 and Elevated ALT measurement R74.0 [place] [address] [address] Jul, [place] [address] [address] Jul, Elevated ALT measurement R74 .0 [place] [address] [address] Jul, Iron deficiency anemia due t o chronic blood loss D50.0 [place] [address] [address] Jul, Type 2 diabetes mellitus wit hout complication E11.9 ; Acquired hypothyroidism E03.9 ; Iron deficiency anemia due to chronic blood loss D50.0 ; Hyperlipidemia E78.5 and Essential hypertension I10 [place] [address] [address] Jun, [place] [address] [address] Jun, Vitamin B12 deficiency E53.8 [place] [address] [address] 16 Jun, 2016 Type 2 diabetes mellitus wit hout complication E11.9 ; Acquired hypothyroidism E03.9 ; Iron deficiency anemia due to chronic blood loss D50.0 ; Hyperlipidemia E78.5 ; Essential hypertension I10 ; Chronic tension-type headache, intractable G44.221 ; Pulsatile tinnitus, bilateral H93.13 ; Obstructive sleep apnea on CPAP G47.33 and Major depressive disorder, recurrent episode, moderate F33.1 [place] [address] [address] May, Vitamin B12 deficiency E53.8 [facility] [address] [facility] [id number] [address] [place] [address] 08 May, 2016 [facility] [address] [facility] [id number] [address] [place] [address] Apr, Vitamin B12 deficiency E53.8 [facility] [address] [facility] [id number] [address] [place] [phone] Apr, [facility] [address] [facility] [id number] [address] [place] [phone] Mar, Chronic tension-type headach e, intractable G44.221 and Major depressive disorder, recurrent episode, moderate F33.1 [facility] [address] [facility] [id number] [address] [place] [phone] Mar, Vitamin B12 deficiency E53.8 [facility] [address] [place] [id number] [address] [place] [phone] February, [facility] [address] [facility] [id number] [address] [place] [id number] February, Vitamin B12 deficiency E53.8 [facility] [address] [facility] [id number] [address] [place] [phone] February, [facility] [address] [place] [id number] [address] [place] [phone] Jan, Dysuria R30.0 [facility] [address] [facility] [id number] [address] [place] [address] 22 Jan, 2016 Type 2 diabetes mellitus wit hout complication E11.9 and Essential hypertension I10 [facility] [address] [facility] [id number] [address] [place] [address] 15 Jan, 2016 Chronic diarrhea K52.9 [facility] [address] [facility] [id number] [address] [place] [address] 13 Jan, 2016 [facility] [address] [place] [id number] [address] [place] [address] Jan, Chronic diarrhea K52.9 [facility] [address] [facility] [id number] [address] [place] [address] Jan, [facility] [address] [facility] [id number] [address] [place] [address] Jan, Dysuria R30.0 [facility] [address] [facility] [id number] [address] [place] [address] Jan, Vitamin B12 deficiency E53.8 [facility] [address] [facility] [id number] [address] [place] [address] 07 Jan, 2016 Dysuria R30.0 and Iron defic iency anemia due to chronic blood loss D50.0 [facility] [address] [facility] [id number] [address] [place] [address] 05 Jan, 2016 Dysuria R30.0 [facility] [address] [place] [id number] [address] [place] [address] Jan, [facility] [address] [facility] [id number] [address] [place] [address] 15 Dec, 2015 [facility] [address] [facility] [id number] [address] [place] [address] 11 Dec, 2015 Iron deficiency anemia due t o chronic blood loss D50.0 [facility] [address] [facility] [id number] [address] [place] [address] 10 Dec, 2015 Dysuria R30.0 ; Fatigue R53. 83 ; Hyperlipidemia E78.5 and Diarrhea R19.7 [facility] [address] [facility] [id number] [address] [place] [address] Dec, [facility] [address] [place] [id number] [address] [place] [id number] 02 Dec, 2015 [facility] [address] [facility] [id number] [address] [place] [address] 10 Nov, 2015 Vitamin B12 deficiency E53.8 [facility] [address] [place] [id number] [address] [place] [address] Oct, Vitamin B12 deficiency E53.8 [facility] [address] [facility] [id number] [address] [place] [address] Oct, [facility] [address] [facility] [id number] [address] [place] [address] 09 Oct, 2015 Headache R51 [facility] [address] [place] [id number] [address] [place] [address] 07 Oct, 2015 Essential hypertension I10 ; Type 2 diabetes mellitus without complication E11.9 ; Vitamin B12 deficiency E53.8 ; Acquired hypothyroidism E03.9 ; Iron deficiency anemia due to chronic blood loss D50.0 and Hyperlipidemia E78.5 [facility] [address] [place] [id number] [address] [place] [address] Sep, Essential hypertension I10 ; Vitamin B12 deficiency E53.8 ; Iron deficiency anemia due to chronic blood loss D50.0 ; Type 2 diabetes mellitus without complication E11.9 ; Hyperlipidemia E78.5 and Acquired hypothyroidism E03.9 [facility] [id number] [place] [address] Sep, [facility] [address] [address] Sep, [facility] [address] [place] [id number] [address] [place] [address] Jul, [facility] [address] [place] [id number] [address] [place] [address] Jun, [facility] [address] [place] [id number] [address] [place] [address] Jun, [facility] [address] [address] 15 Jun, 2015 Hyperlipidemia 272.4 ; Iron deficiency anemia 280.9 ; Hypothyroidism 244.9 ; Diabetes mellitus without mention of complication, type II or unspecified type, not stated as uncontrolled 250.00 and Hypertension 401.9 [facility] [address] [place] [id number] [address] [place] [phone] 04 Jun, 2015 [facility] [address] [facility] [id number] [address] [place] [address] Jun, [facility] [address] [facility] [id number] [address] [place] [address] May, Hyperlipidemia 272.4 [facility] [address] [facility] [id number] [place] [address] May, [facility] [address] [place] [id number] [place] [address] May, [facility] [address] [place] [id number] [place] [address] Apr, Diabetes mellitus without me ntion of complication, type II or unspecified type, not stated as uncontrolled 250.00 ; Hypothyroidism 244.9 ; Hyperlipidemia 272.4 ; Pain in joint, lower leg 719.46 and RUQ pain 789.01 [facility] [address] [place] [id number] [address] [place] [address] Mar, Sinusitis 473.9 [facility] [address] [place] [id number] [place] [address] Mar, [facility] [address] [place] [id number] [place] [address] Mar, [facility] [address] [facility] [id number] [address] [place] [address] Mar, Hematochezia 578.1 [facility] [address] [facility] [id number] [address] [place] [address] February, Sinusitis 473.9 [facility] [address] [place] [id number] [address] [place] [address] February, [facility] [address] [facility] [id number] [address] [place] [address] Jan, [facility] [address] [place] [id number] [place] [address] Jan, [facility] [address] [id number] [address] [place] [address], [place] [address] Dec, [facility] [address] [id number] [address] [place] [address], [place] [address] Dec, [facility] [address] [id number] [address] [place] [address], [place] [address] Dec, [facility] [address] [id number] [address] [place] [address], [place] [address] Dec, [facility] [address] [id number] [address] [place] [address], [place] [address] Dec, [facility] [address] [id number] [address] [place] [address], [place] [address] Dec, [facility] [address] [id number] [address] [place] [address], [place] [address] Dec, [facility] [address] [id number] [address] [place] [address], [place] [address] Dec, [facility] [address] [id number] [address] [place] [address], [place] [address] Dec, [facility] [address] [id number] [address] [place] [address], [place] [address] Dec, [facility] [address] [id number] [address] [place] [address], [place] [address] Dec, [facility] [address] [id number] [address] [place] [address], [place] [address] Nov, [facility] [address] [id number] [address] [place] [address], [place] [address] Nov, [facility] [address] [id number] [address] [place] [address], [place] [address] Nov, [facility] [address] [id number] [address] [place] [address], [place] [address] Nov, [facility] [address] [id number] [address] [place] [address], [place] [address] Oct, [facility] [address] [id number] [address] [place] [address], [place] [address] Oct, [facility] [address] [id number] [address] [place] [address], [place] [address] Oct, [facility] [address] [id number] [address] [place] [address], [place] [address] Oct, [facility] [address] [id number] [address] [place] [address], [place] [address] Oct, [facility] [address] [id number] [address] [place] [address], [place] [address] Oct, [facility] [address] [id number] [address] [place] [address], [place] [address] Sep, [facility] [address] [id number] [address] [place] [address], [place] [address] Sep, [facility] [address] [id number] [address] [place] [address], [place] [address] Sep, [facility] [address] [id number] [address] [place] [address], [place] [address] Sep, [facility] [address] [id number] [address] [place] [address], [place] [address] Sep, [facility] [address] [id number] [address] [place] [address], [place] [address] Sep, [facility] [address] [id number] [address] [place] [address], [place] [address] Sep, [facility] [address] [id number] [address] [place] [address], [place] [address] Aug, [facility] [address] [id number] [address] [place] [address], [place] [address] Aug, [facility] [address] [id number] [address] [place] [address], [place] [address] Aug, [facility] [address] [id number] [address] [place] [address], [place] [address] Aug, [facility] [address] [id number] [address] [place] [address], [place] [address] Aug, [facility] [address] [id number] [address] [place] [address], [place] [address] Aug, [facility] [address] [id number] [address] [place] [address], [place] [address] Aug, [facility] [address] [id number] [address] [place] [address], [place] [address] Aug, [facility] [address] [id number] [address] [place] [address], [place] [address] Aug, [facility] [address] [id number] [address] [place] [address], [place] [address] Aug, [facility] [address] [id number] [address] [place] [address], [place] [address] Aug, [facility] [address] [id number] [address] [place] [address], [place] [address] Aug, [facility] [address] [id number] [address] [place] [address] Aug, [facility] [address] [id number] [address] [place] [address] Aug, [facility] [address] [id number] [address] [place] [address] Jul, [facility] [address] [id number] [address] [place] [address] Jul, [facility] [address] [id number] [address] [place] [address] Jul, [facility] [address] [id number] [address] [place] [address] Jul, [facility] [address] [id number] [address] [place] [address] 24 Jun, 2013 [facility] [address] [id number] [address] [place] [address], [place] [address] 24 Sep, 2013 [facility] [address] [id number] [address] [place] [address], [place] [address] 23 Jun, 2013 [facility] [address] [id number] [address] [place] [address], [place] [address] 23 Jun, 2013 [facility] [address] [id number] [address] [place] [address], [place] [address] 19 Jun, 2013 [facility] [address] [id number] [address] [place] [address], [place] [address] 19 Jun, 2013 [facility] [address] [id number] [address] [place] [address], [place] [address] 11 Jun, 2013 [facility] [address] [id number] [address] [place] [address], [place] [address] 11 Jun, 2013 [facility] [address] [id number] [address] [place] [address], [place] [address] 11 Jun, 2013 [facility] [address] [id number] [address] [place] [address], [place] [address] 11 Jun, 2013 [facility] [address] [id number] [address] [place] [address], [place] [address] 10 Jun, 2013 [facility] [address] [id number] [address] [place] [address], [place] [address] 10 Jun, 2013 [facility] [address] [id number] [address] [place] [address], [place] [address] 09 Jun, 2013 [facility] [address] [id number] [address] [place] [address], [place] [address] 09 Jun, 2013 [facility] [address] [id number] [address] [place] [address], [place] [address] 14 May, 2014 [facility] [address] [id number] [address] [place] [address], [place] [address] 14 May, 2014 [facility] [address] [id number] [facility] [address] May, [facility] [address] [id number] [facility] [address] May, [facility] [address] [id number] [facility] [address] May, [facility] [address] [id number] [facility] [address] May, [facility] [address] [id number] [facility] [address] Apr, [facility] [address] [id number] [address] [place] [address], [place] [address] Apr, [facility] [address] [id number] [address] [place] [address], [place] [address] Apr, [facility] [address] [id number] [address] [place] [address], [place] [address] Apr, [facility] [address] [id number] [address] [place] [address], [place] [address] Apr, [facility] [address] [id number] [address] [place] [address], [place] [address] Apr, [facility] [address] [id number] [address] [place] [address], [place] [address] Apr, [facility] [address] [id number] [address] [place] [address], [place] [address] Apr, [facility] [address] [id number] [address] [place] [address], [place] [address] Apr, [facility] [address] [id number] [address] [place] [address], [place] [address] Apr, [facility] [address] [id number] [address] [place] [address], [place] [address] Apr, [facility] [address] [id number] [address] [place] [address], [place] [address] Mar, [facility] [address] [id number] [address] [place] [address], [place] [address] Mar, [facility] [address] [id number] [address] [place] [address], [place] [address] Mar, [facility] [address] [id number] [address] [place] [address], [place] [address] Mar, [facility] [address] [id number] [address] [place] [address], [place] [address] February, [facility] [address] [id number] [address] [place] [address], [place] [address] February, [facility] [address] [id number] [address] [place] [address], [place] [address] Jan, [facility] [address] [id number] [address] [place] [address], [place] [address] Jan, [address] [id number] Jan, [facility] [address] [id number] [address] [place] [address], [place] [address] Jan, [facility] [address] [id number] [address] [place] [address], [place] [address] Jan, [facility] [address] [id number] [address] [place] [address], [place] [address] Jan, [facility] [address] [id number] [address] [place] [address], [place] [address] Jan, [facility] [address] [id number] [address] [place] [address], [place] [address] Jan, [facility] [address] [id number] [address] [place] [address], [place] [address] Jan, [facility] [address] [id number] [address] [place] [address], [place] [address] Jan, [facility] [address] [id number] [address] [place] [address], [place] [address] Jan, [facility] [address] [id number] [facility] [address] Jan, [facility] [address] [id number] [address] [place] [address], [place] [address] Jan, [facility] [address] [id number] [address] [place] [address], [place] [address] Jan, [facility] [address] [id number] [address] [place] [address], [place] [address] Jan, [facility] [address] [id number] [address] [place] [address], [place] [address] Jan, [facility] [address] [id number] [address] [place] [address], [place] [address] Jan, [facility] [address] [id number] [address] [place] [address], [place] [address] Dec, [facility] [address] [id number] [address] [place] [address], [place] [address] Dec, [facility] [address] [id number] [address] [place] [address], [place] [address] Dec, [facility] [address] [id number] [address] [place] [address], [place] [address] Dec, [facility] [address] [id number] [address] [place] [address], [place] [address] Dec, [facility] [address] [id number] [address] [place] [address], [place] [address] Dec, [facility] [address] [id number] [address] [place] [address], [place] [address] Dec, [facility] [address] [id number] [address] [place] [address], [place] [address] Nov, [facility] [address] [id number] [address] [place] [address], [place] [address] Nov, [facility] [address] [id number] [address] [place] [address], [place] [address] Nov, [facility] [address] [id number] [address] [place] [address], [place] [address] Nov, [facility] [address] [id number] [address] [place] [address], [place] [address] Nov, [facility] [address] [id number] [address] [place] [address], [place] [address] Nov, [facility] [address] [id number] [address] [place] [address], [place] [address] Nov, [facility] [address] [id number] [address] [place] [address], [place] [address] Oct, [facility] [address] [id number] [address] [place] [address], [place] [address] Oct, [facility] [address] [id number] [address] [place] [address], [place] [address] Sep, [facility] [address] [id number] [address] [place] [address], [place] [address] Sep, [facility] [address] [id number] [address] [place] [address], [place] [address] Sep, [facility] [address] [id number] [address] [place] [address], [place] [address] Sep, [facility] [address] [id number] [address] [place] [address], [place] [address] Sep, [facility] [address] [id number] [address] [place] [address], [place] [address] Sep, [facility] [address] [id number] [address] [place] [address], [place] [address] Sep, [facility] [address] [id number] [address] [place] [address], [place] [address] Sep, [facility] [address] [id number] [address] [place] [address], [place] [address] Sep, [facility] [address] [id number] [address] [place] [address] Sep, [facility] [address] [id number] [address] [place] [id number] Aug, [facility] [address] [id number] [address] [place] [address] Aug, [facility] [address] [id number] [address] [place] [address] Aug, [facility] [address] [id number] [address] [place] [address] Aug, [facility] [address] [id number] [address] [place] [address] Aug, [facility] [address] [id number] [address] [place] [id number] Jul, [facility] [address] [id number] [address] [place] [address] Jul, [facility] [address] [id number] [address] [place] [address] Jul, [facility] [address] [id number] [address] [place] [id number] Jul, IMMUNIZATIONS No Known Immunizations SOCIAL HISTORY [...]
--- OUTSIDE RECORDS SUMMARY | 2020-03-16 11:42 | XMS REPORT ---
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 Name Role Phone WIL Benavides Unavailable PROBLEMS Type Condition ICD9-CM Code [id number] Code Onset Dates Condition S tatus SNOMED Code Problem Sensorineural hearing loss of right ear H90.41 Active 78908306 Problem Obstructive sleep apnea on CPAP G47.33 Active 65892692 Problem Periodic limb movement sleep disorder G47.61 Active 010291377 Problem Iron deficiency anemia due to chronic blood loss D 50.0 Active 15035325 Problem MACHUCA (nonalcoholic steatohepatitis) K75.81 Active 177124171 Problem Vitamin B12 deficiency E53.8 Active 297609781 Problem Chronic diarrhea K52.9 Active 236 610663 Problem Vitamin D deficiency E55.9 Active 85322984 Problem BMI 50.0-59.9, adult Z68.43 Active 368763555 Problem Fatty liver K76.0 Active 77785350 7 Problem Anxiety F41.9 Active 34904710 Problem Major depressive disorder, recurrent episode, moderate F33.1 Active 189844449 Problem Chronic tension-type headache, intractable G44.221 Active 397512412 Problem Right upper quadrant pain R10.11 Acti ve 60030691 Problem Frequent falls R29.6 Active 83129 2001 Problem Crohn's disease of both small and large intestin e with complication K50.819 Active 90407879 Problem Type 2 diabetes mellitus with other specified complication E11.69 Active [id number] Problem Hyperlipidemia, unspecified E78.5 Ac tive 63479410 Problem Mixed stress and urge urinary incontinence N39.46 Active 519568177 Problem Sinusitis chronic, frontal J32.1 Act katlyn 80382038 Problem Seasonal allergies J30.2 Active 4 97361857 Problem Other chronic pain G89.29 Active 8 4999528 Problem Hyperlipidemia E78.5 Active 56376 004 Problem Bilateral primary osteoarthritis of knee M17.0 Active 261918619 Problem Essential hypertension I10 Active 39484949 Problem Acquired hypothyroidism E03.9 Active 198990848 Problem History of hysterectomy for benign disease Z90.710 Active 285444798 Problem Morbid (severe) obesity due to excess calories E66 .01 Active 747755816 Problem Other cirrhosis of liver K74.69 Activ e 98653489 Problem Portal hypertension K76.6 Active 71403800 ALLERGIES No Information ENCOUNTERS Encounter Location Date Diagnosis [place] [address] [address] [facility] [id number] [address] [place] [id number] Jan, [place] [address] [address] [facility] [id number] [address] [place] [id number] 30 Dec, [id number] [place] [address] Dec, Fever, unspecified fever cau se R50.9 [place] [address] [address] [place] [id number] [address] [place] [id number] Dec, Cough R05 and Fever, unspeci fied fever cause R50.9 [place] [address] [address] [facility] [id number] [address] [place] [phone] Dec, [place] [address] [address] [place] [id number] [address] [place] [phone] Dec, [place] [address] [address] [facility] [id number] [address] [place] [phone] Dec, [place] [address] [address] [place] [id number] [address] [place] [id number] Nov, MACHUCA (nonalcoholic steatohep atitis) K75.81 ; BMI 50.0-59.9, adult Z68.43 and Type 2 diabetes mellitus with other specified complication E11.69 [place] [address] [address] [place] [id number] [address] [place] [id number] Oct, Morbid (severe) obesity due to excess calories E66.01 and Type 2 diabetes mellitus with other specified complication E11.69 [place] [address] [address] [place] [id number] [address] [place] [phone] Oct, Essential hypertension I10 ; BMI 50.0-59.9, adult Z68.43 and Morbid (severe) obesity due to excess calories E66.01 [place] [address] [address] [facility] [id number] [address] [place] [id number] Oct, Encounter for Medicare [facility] wellness exam Z00.00 ; Portal hypertension [...] E78.5 and Other cirrhosis of liver K74.69 [place] [address] [address] [facility] [id number] [address] [place] [phone] Oct, [place] [address] [address] [place] [id number] [address] [place] [id number] Sep, Major depressive disorder, r ecurrent episode, moderate F33.1 ; Vitamin B12 deficiency E53.8 ; BMI 50.0-59.9, adult Z68.43 and Essential hypertension I10 [place] [address] [address] [facility] [id number] [address] [place] [address] Sep, Breast pain, right N64.[address] [id number] [address] Sep, Breast pain, right N64.[address] [id number] [address] Sep, Breast pain, right N64.[address] [id number] [address] Sep, Breast pain, right N64.4 [place] [address] [address] [facility] [id number] [address] [place] [id number] Aug, [facility] [address] [facility] [id number] [address] [place] [phone] Aug, Major depressive disorder, r ecurrent episode, moderate F33.1 ; BMI 50.0-59.9, adult Z68.43 ; Type 2 diabetes mellitus without complication E11.9 ; Breast pain, right N64.4 and Encounter for screening mammogram for breast cancer Z12.31 [facility] [address] [id number] [address] Jun, Pneumonia of right middle lo be due to infectious organism J18.1 and Cough R05 [facility] [address] [id number], [place] [address] 09 Jun, 2019 Acute nasopharyngitis J00 [place] [facility] [id number] [address] [place] [phone] May, Iron deficiency anemia due t o [...] Major depressive disorder, recurrent episode, moderate F33.1 [facility] [address] [facility] [id number] [address] [place] [address] May, Hyperlipidemia, unspecified E78.5 ; Other cirrhosis of liver K74.69 and Iron deficiency anemia due to chronic blood loss D50.0 [facility] [address] [facility] [id number] [address] [place] [id number] February, [facility] [address] [id number], [place] [address] February, Acute recurrent pansinusitis J01.41 [facility] [address] [id number], [place] [address] February, Acute maxillary sinusitis, r ecurrence not specified J01.00 [place] [address] [address] [place] [id number] [address] [place] [id number] Jan, Bilateral primary osteoarthr itis of knee M17.0 ; Morbid obesity E66.01 ; Viral syndrome B34.9 and Atrial dilatation, left I51.7 [place] [address] [id number] [place] [address] Jan, [place] [address] [address] Dec, Trigeminy R00.8 [place] [id number] [place] [address] Dec, Essential hypertension I10 ; Morbid obesity E66.01 ; Low back pain M54.5 ; Other chronic pain G89.29 and Pain in right knee M25.561 [place] [address] [address] [place] [id number] [address] [place] [address] Nov, [place] [address] [address] Oct, Palpitations R00.[address] [address] Oct, Encounter for Medicare annua l wellness [...] small and large intestine with complication K50.819 [place] [address] [address] [place] [id number] [address] [place] [id number] Oct, [place] [address] [address] [place] [id number] [place] [address] Oct, Crohn's disease of both smal l and large intestine with complication K50.819 [facility] [address] [address] Jul, Sinusitis chronic, frontal J 32.1 ; Acute mucoid otitis media of both ears H65.113 ; Seasonal allergies J30.2 and BMI 50.0-59.9, adult Z68.43 [place] [address] [address] Jul, Essential hypertension I10 ; Type 2 diabetes mellitus with other specified complication E11.69 ; BMI 50.0-59.9, adult Z68.43 ; Mixed stress and urge urinary incontinence N39.46 and Mid back pain on right side M54.9 [place] [address] [address] 26 Jun, 2018 Iron deficiency anemia due t o chronic blood loss D50.0 ; Hyperlipidemia E78.5 ; Type 2 diabetes mellitus with other specified complication E11.69 ; Vitamin B12 deficiency E53.8 and Vitamin D deficiency E55.9 [facility] [address] [address] 14 Jun, 2018 Cough R05 and BMI 50.0-59.9, adult Z68.43 [place] [address] [address] Jun, [place] [address] [address] May, Iron deficiency anemia due t o chronic blood loss D50.0 ; Chronic diarrhea K52.9 ; Essential hypertension I10 ; Type 2 diabetes mellitus with other specified complication E11.69 ; Vitamin D deficiency E55.9 ; Colon stricture K56.699 ; Vitamin B12 deficiency E53.8 ; Hyperlipidemia E78.5 and BMI 50.0-59.9, adult Z68.43 [place] [address] [address] May, [place] [address] [address] [place] [id number] [address] [place] [address] Apr, Nonhealing wound of heel S91 .309A and Body mass index (BMI) of 50- 59.9 in adult Z68.43 [facility] [address] [place] [address] Mar, [place] [address] [address] Mar, BMI 50.0-59.9, adult Z68.43 ; Flank pain R10.9 and Weight loss counseling, encounter for Z71.3 [place] [address] [address] February, [place] [address] [address] Jan, [place] [address] [address] Jan, [facility] [address] [place] [id number] [address] [place] [address] Jan, Diarrhea due to staphylococc us A04.8 and Diarrhea, unspecified type R19.7 [place] [address] [address] [place] [id number] [address] [place] [address] Jan, Acquired hypothyroidism E03. 9 ; Type 2 diabetes mellitus with other specified complication E11.69 ; Hyperlipidemia E78.5 ; Essential hypertension I10 ; Major depressive disorder, recurrent episode, moderate F33.1 and Vitamin D deficiency E55.9 [place] [address] [address] [place] [id number] [address] [place] [address] Jan, Type 2 diabetes mellitus wit h other specified complication E11.69 ; Hyperlipidemia E78.5 ; Essential hypertension I10 ; Acquired hypothyroidism E03.9 ; Major depressive disorder, recurrent episode, moderate F33.1 ; Vitamin D deficiency E55.9 ; Sinus congestion R09.81 and BMI 50.0-59.9, adult Z68.43 [place] [address] [address] [place] [address] Dec, [facility] [address] [place] [id number] [address] [place] [phone] Sep, Encounter for immunization Z 23 [facility] [address] [place] [id number] [address] [place] [address] Sep, [facility] [address] [address] Sep, Vitamin B12 deficiency E53.8 [place] [address] [address] [place] [id number] [place] [address] Aug, [place] [address] [address] Aug, BMI 60.0-69.9, adult Z68.44 and Acute non-recurrent maxillary sinusitis J01.00 [place] [address] [address] Aug, [place] [address] [address] [place] [id number] [address] [place] [address] Aug, Medicare annual wellness vis it, initial Z00.00 ; Screening for breast cancer Z12.31 ; BMI 40.0-44.9, adult Z68.41 and Acquired hypothyroidism E03.9 [place] [address] [address] [place] [id number] [address] [place] [address] Jul, Actinic keratosis L57.0 [place] [address] [address] Jul, Actinic keratosis L57.0 [place] [address] [place] [id number] [place] [address] Jul, Type 2 diabetes mellitus wit h other specified complication E11.69 ; Actinic keratosis L57.0 and Hypothyroidism, unspecified E03.9 [place] [address] [address] [place] [id number] [address] [place] [address] Jul, [place] [address] [place] [id number] [address] [place] [address] Jul, [place] [address] [address] Jul, Vitamin B12 deficiency E53.8 [place] [address] [place] [id number] [place] [address] Jun, Acquired hypothyroidism E03. 9 and Chronic tension-type headache, intractable G44.221 [place] [address] [address] [place] [id number] [place] [address] Jun, Back muscle spasm M62.830 an d BMI 50.0-59.9, adult Z68.43 [place] [address] [address] Jun, Vitamin B12 deficiency E53.8 [place] [address] [address] Jun, Crohn's disease of both smal l and large intestine with complication K50.819 [place] [address] [address] Jun, Crohn's disease of both smal l and large intestine with complication K50.819 [place] [address] [address] May, Hyperlipidemia E78.5 ; Anxie ty F41.9 and Essential hypertension I10 [place] [address] [address] May, [place] [address] [address] May, Encounter for immunization Z 23 and Vitamin B12 deficiency E53.8 [place] [address] [address] [place] [id number] [address] [place] [address] May, [place] [address] [address] Apr, [place] [address] [facility] [id number] [address] [place] [address] Apr, [place] [address] [address] [facility] [id number] [address] [place] [address] Apr, Crohn's disease of both smal l and large intestine with complication K50.819 [place] [address] [address] [facility] [id number] [address] [place] [address] Apr, Vitamin B12 deficiency E53.8 [place] [address] [address] [facility] [id number] [address] [place] [address] Apr, Crohn's disease of both smal l and large intestine with complication K50.819 and Acute pain of right shoulder M25.511 [place] [address] [address] [facility] [id number] [address] [place] [address] Mar, Type 2 diabetes mellitus wit hout complication E11.9 ; Frequent falls R29.6 and Other chest pain R07.89 [place] [address] [address] [facility] [id number] [address] [place] [address] Mar, [place] [address] [facility] [id number] [address] [place] [address] Mar, [place] [address] [address] [facility] [id number] [address] [place] [address] Mar, Type 2 diabetes mellitus wit hout complication E11.9 and Blurry vision, bilateral H53.8 [place] [address] [address] [facility] [id number] [address] [place] [address] Mar, Vitamin B12 deficiency E53.8 [place] [address] [address] [facility] [id number] [address] [place] [address] Mar, Crohn's disease of both smal l and large intestine with complication K50.819 [place] [address] [address] [facility] [id number] [address] [place] [address] February, Vitamin B12 deficiency E53.8 [place] [address] [place] [id number] [address] [place] [address] Jan, Crohn's disease of both smal l and large intestine with complication K50.819 [facility] [address] [facility] [id number] [address] [place] [address] Jan, Crohn's disease of both smal l and large intestine with complication K50.819 [facility] [address] [facility] [id number] [address] [place] [address] Jan, Dark brown-colored urine R82 .99 and Acute suppurative otitis media of right ear without spontaneous rupture of tympanic membrane, recurrence not specified H66.001 [place] [address] [address] [facility] [id number] [address] [place] [address] Jan, Encounter for immunization Z 23 [place] [address] [facility] [id number] [address] [place] [address] Dec, Crohn's disease of both smal l and large intestine with complication K50.819 and Eustachian tube dysfunction, right H69.81 [place] [address] [facility] [id number] [address] [place] [address] Dec, [place] [address] [facility] [id number] [address] [place] [address] Dec, Contusion of right knee, ini tial encounter S80.01XA [place] [address] [place] [id number] [address] [place] [address] Dec, [place] [address] [facility] [id number] [address] [place] [address] Dec, Acute pain of right knee M25 .561 [place] [address] [place] [id number] [address] [place] [address] Dec, Iron deficiency anemia due t o chronic blood loss D50.0 [place] [address] [place] [id number] [address] [place] [address] Dec, Hyperlipidemia E78.5 ; Type 2 diabetes mellitus without complication E11.9 ; Vitamin B12 deficiency E53.8 ; Essential hypertension I10 ; Obstructive sleep apnea on CPAP G47.33 and Periodic limb movement sleep disorder G47.61 [facility] [address] [facility] [id number] [address] [place] [address] 22 Nov, 2016 Type 2 diabetes mellitus wit hout complication E11.9 ; Vitamin B12 deficiency E53.8 ; Hyperlipidemia E78.5 ; Essential hypertension I10 ; Obstructive sleep apnea on CPAP G47.33 ; Periodic limb movement sleep disorder G47.61 ; Anxiety F41.9 ; Acquired hypothyroidism E03.9 and Chronic tension-type headache, intractable G44.221 [place] [address] [facility] [id number] [address] [place] [address] Nov, Crohn's disease of both smal l and large intestine with complication K50.819 [place] [address] [facility] [id number] [address] [place] [address] Nov, Vitamin B12 deficiency E53.8 [place] [address] [facility] [id number] [address] [place] [address] Oct, [place] [address] [facility] [id number] [address] [place] [address] Oct, Vitamin B12 deficiency E53.8 [place] [address] [facility] [id number] [address] [place] [address] Sep, [facility] [address] [facility] [id number] [address] [place] [address] 15 Sep, 2016 Vitamin B12 deficiency E53.8 [place] [address] [facility] [id number] [address] [place] [address] Aug, [place] [address] [facility] [id number] [address] [place] [id number] 14 Aug, 2016 Vitamin B12 deficiency E53.8 [place] [address] [facility] [id number] [address] [place] [address] Aug, [place] [address] [address] Jul, Elevated ALT measurement R74 .0 [place] [address] [address] Jul, Hematuria R31.9 ; Acute righ t-sided thoracic back pain M54.6 ; Major depressive disorder, recurrent episode, moderate F33.1 and Elevated ALT measurement R74.0 [place] [address] [address] Jul, [place] [address] [address] Jul, Elevated ALT measurement R74 .0 [place] [address] [address] Jul, Iron deficiency anemia due t o chronic blood loss D50.0 [place] [address] [address] Jul, Type 2 diabetes mellitus wit hout complication E11.9 ; Acquired hypothyroidism E03.9 ; Iron deficiency anemia due to chronic blood loss D50.0 ; Hyperlipidemia E78.5 and Essential hypertension I10 [place] [address] [address] Jun, [place] [address] [address] Jun, Vitamin B12 deficiency E53.8 [place] [address] [address] 16 Jun, 2016 Type 2 diabetes mellitus wit hout complication E11.9 ; Acquired hypothyroidism E03.9 ; Iron deficiency anemia due to chronic blood loss D50.0 ; Hyperlipidemia E78.5 ; Essential hypertension I10 ; Chronic tension-type headache, intractable G44.221 ; Pulsatile tinnitus, bilateral H93.13 ; Obstructive sleep apnea on CPAP G47.33 and Major depressive disorder, recurrent episode, moderate F33.1 [place] [address] [address] May, Vitamin B12 deficiency E53.8 [facility] [address] [facility] [id number] [address] [place] [id number] 08 May, 2016 [facility] [address] [facility] [id number] [address] [place] [address] Apr, Vitamin B12 deficiency E53.8 [facility] [address] [facility] [id number] [address] [place] [address] Apr, [facility] [address] [facility] [id number] [address] [place] [address] Mar, Chronic tension-type headach e, intractable G44.221 and Major depressive disorder, recurrent episode, moderate F33.1 [facility] [address] [facility] [id number] [address] [place] [address] Mar, Vitamin B12 deficiency E53.8 [facility] [address] [place] [id number] [address] [place] [address] February, [facility] [address] [facility] [id number] [address] [place] [id number] February, Vitamin B12 deficiency E53.8 [facility] [address] [facility] [id number] [address] [place] [id number] February, [facility] [address] [place] [id number] [address] [place] [id number] Jan, Dysuria R30.0 [facility] [address] [facility] [id number] [address] [place] [id number] 22 Jan, 2016 Type 2 diabetes mellitus wit hout complication E11.9 and Essential hypertension I10 [facility] [address] [facility] [id number] [address] [place] [id number] 15 Jan, 2016 Chronic diarrhea K52.9 [facility] [address] [facility] [id number] [address] [place] [id number] 13 Jan, 2016 [facility] [address] [place] [id number] [address] [place] [address] Jan, Chronic diarrhea K52.9 [facility] [address] [facility] [id number] [address] [place] [id number] Jan, [facility] [address] [facility] [id number] [address] [place] [id number] Jan, Dysuria R30.0 [facility] [address] [facility] [id number] [address] [place] [address] Jan, Vitamin B12 deficiency E53.8 [facility] [address] [facility] [id number] [address] [place] [id number] 07 Jan, 2016 Dysuria R30.0 and Iron defic iency anemia due to chronic blood loss D50.0 [facility] [address] [facility] [id number] [address] [place] [id number] 05 Jan, 2016 Dysuria R30.0 [facility] [address] [place] [id number] [address] [place] [id number] Jan, [facility] [address] [facility] [id number] [address] [place] [id number] 15 Dec, 2015 [facility] [address] [facility] [id number] [address] [place] [id number] 11 Dec, 2015 [place] deficiency anemia due t o chronic blood loss D50.0 [facility] [address] [facility] [id number] [address] [place] [id number] 10 Dec, 2015 Dysuria R30.0 ; Fatigue R53. 83 ; Hyperlipidemia E78.5 and Diarrhea R19.7 [facility] [address] [facility] [id number] [address] [place] [id number] Dec, [facility] [address] [place] [id number] [address] [place] [id number] 02 Dec, 2015 [facility] [address] [facility] [id number] [address] [place] [address] 10 Nov, 2015 Vitamin B12 deficiency E53.8 [facility] [address] [place] [id number] [address] [place] [address] Oct, Vitamin B12 deficiency E53.8 [facility] [address] [facility] [id number] [address] [place] [id number] Oct, [facility] [address] [facility] [id number] [address] [place] [id number] 09 Oct, 2015 Headache R51 [facility] [address] [place] [id number] [address] [place] [id number] 07 Oct, 2015 Essential hypertension I10 ; Type 2 diabetes mellitus without complication E11.9 ; Vitamin B12 deficiency E53.8 ; Acquired hypothyroidism E03.9 ; Iron deficiency anemia due to chronic blood loss D50.0 and Hyperlipidemia E78.5 [facility] [address] [place] [id number] [address] [place] [address] Sep, Essential hypertension I10 ; Vitamin B12 deficiency E53.8 ; Iron deficiency anemia due to chronic blood loss D50.0 ; Type 2 diabetes mellitus without complication E11.9 ; Hyperlipidemia E78.5 and Acquired hypothyroidism E03.9 [facility] [id number] [place] [address] Sep, [facility] [address] [address] Sep, [facility] [address] [place] [id number] [address] [place] [id number] Jul, [facility] [address] [place] [id number] [address] [place] [id number] Jun, [facility] [address] [place] [id number] [address] [place] [id number] Jun, [facility] [address] [id number] 15 Jun, 2015 Hyperlipidemia 272.4 ; Iron deficiency anemia 280.9 ; Hypothyroidism 244.9 ; Diabetes mellitus without mention of complication, type II or unspecified type, not stated as uncontrolled 250.00 and Hypertension 401.9 [facility] [address] [place] [id number] [address] [place] [id number] 04 Jun, 2015 [facility] [address] [facility] [id number] [address] [place] [id number] Jun, [facility] [address] [facility] [id number] [address] [place] [address] May, Hyperlipidemia 272.4 [facility] [address] [facility] [id number] [place] [id number] May, [facility] [address] [place] [id number] [place] [address] May, [facility] [address] [place] [id number] [place] [address] Apr, Diabetes mellitus without me ntion of complication, type II or unspecified type, not stated as uncontrolled 250.00 ; Hypothyroidism 244.9 ; Hyperlipidemia 272.4 ; Pain in joint, lower leg 719.46 and RUQ pain 789.01 [facility] [address] [place] [id number] [address] [place] [id number] Mar, Sinusitis 473.9 [facility] [address] [place] [id number] [place] [address] Mar, [facility] [address] [place] [id number] [place] [address] Mar, [facility] [address] [facility] [id number] [address] [place] [address] Mar, Hematochezia 578.1 [facility] [address] [facility] [id number] [address] [place] [id number] February, Sinusitis 473.9 [facility] [address] [place] [id number] [address] [place] [id number] February, [facility] [address] [facility] [id number] [address] [place] [id number] Jan, [facility] [address] [place] [id number] [place] [address] Jan, [facility] [address] [id number] [address] [place] [address], [place] [address] Dec, [facility] [address] [id number] [address] [place] [address], [place] [address] Dec, [facility] [address] [id number] [address] [place] [address], [place] [address] Dec, [facility] [address] [id number] [address] [place] [address], [place] [address] Dec, [facility] [address] [id number] [address] [place] [address], [place] [address] Dec, [facility] [address] [id number] [address] [place] [address], [place] [address] Dec, [facility] [address] [id number] [address] [place] [address], [place] [address] Dec, [facility] [address] [id number] [address] [place] [address], [place] [address] Dec, [facility] [address] [id number] [address] [place] [address], [place] [address] Dec, [facility] [address] [id number] [address] [place] [address], [place] [address] Dec, [facility] [address] [id number] [address] [place] [address], [place] [address] Dec, [facility] [address] [id number] [address] [place] [address], [place] [address] Nov, [facility] [address] [id number] [address] [place] [address], [place] [address] Nov, [facility] [address] [id number] [address] [place] [address], [place] [address] Nov, [facility] [address] [id number] [address] [place] [address], [place] [address] Nov, [facility] [address] [id number] [address] [place] [address], [place] [address] Oct, [facility] [address] [id number] [address] [place] [address], [place] [address] Oct, [facility] [address] [id number] [address] [place] [address], [place] [address] Oct, [facility] [address] [id number] [address] [place] [address], [place] [address] Oct, [facility] [address] [id number] [address] [place] [address], [place] [address] Oct, [facility] [address] [id number] [address] [place] [address], [place] [address] Oct, [facility] [address] [id number] [address] [place] [address], [place] [address] Sep, [facility] [address] [id number] [address] [place] [address], [place] [address] Sep, [facility] [address] [id number] [address] [place] [address], [place] [address] Sep, [facility] [address] [id number] [address] [place] [address], [place] [address] Sep, [facility] [address] [id number] [address] [place] [address], [place] [address] Sep, [facility] [address] [id number] [address] [place] [address], [place] [address] Sep, [facility] [address] [id number] [address] [place] [address], [place] [address] Sep, [facility] [address] [id number] [address] [place] [address], [place] [address] Aug, [facility] [address] [id number] [address] [place] [address], [place] [address] Aug, [facility] [address] [id number] [address] [place] [address], [place] [address] Aug, [facility] [address] [id number] [address] [place] [address], [place] [address] Aug, [facility] [address] [id number] [address] [place] [address], [place] [address] Aug, [facility] [address] [id number] [address] [place] [address], [place] [address] Aug, [facility] [address] [id number] [address] [place] [address], [place] [address] Aug, [facility] [address] [id number] [address] [place] [address], [place] [address] Aug, [facility] [address] [id number] [address] [place] [address], [place] [address] Aug, [facility] [address] [id number] [address] [place] [address], [place] [address] Aug, [facility] [address] [id number] [address] [place] [address], [place] [address] Aug, [facility] [address] [id number] [address] [place] [address], [place] [address] Aug, [facility] [address] [id number] [address] [place] [address] Aug, [facility] [address] [id number] [address] [place] [address] Aug, [facility] [address] [id number] [address] [place] [address] Jul, [facility] [address] [id number] [address] [place] [id number] Jul, [facility] [address] [id number] [address] [place] [address] Jul, [facility] [address] [id number] [address] [place] [id number] Jul, [facility] [address] [id number] [address] [place] [id number] 24 Jun, 2013 [facility] [address] [id number] [address] [place] [address], [place] [address] 24 Sep, 2013 [facility] [address] [id number] [address] [place] [address], [place] [address] 23 Jun, 2013 [facility] [address] [id number] [address] [place] [address], [place] [address] 23 Jun, 2013 [facility] [address] [id number] [address] [place] [address], [place] [address] 19 Jun, 2013 [facility] [address] [id number] [address] [place] [address], [place] [address] 19 Jun, 2013 [facility] [address] [id number] [address] [place] [address], [place] [address] 11 Jun, 2013 [facility] [address] [id number] [address] [place] [address], [place] [address] 11 Jun, 2013 [facility] [address] [id number] [address] [place] [address], [place] [address] 11 Jun, 2013 [facility] [address] [id number] [address] [place] [address], [place] [address] 11 Jun, 2013 [facility] [address] [id number] [address] [place] [address], [place] [address] 10 Jun, 2013 [facility] [address] [id number] [address] [place] [address], [place] [address] 10 Jun, 2013 [facility] [address] [id number] [address] [place] [address], [place] [address] 09 Jun, 2013 [facility] [address] [id number] [address] [place] [address], [place] [address] 09 Jun, 2013 [facility] [address] [id number] [address] [place] [address], [place] [address] 14 May, 2014 [facility] [address] [id number] [address] [place] [address], [place] [address] 14 May, 2014 [facility] [address] [id number] [facility] [place] [address] May, [facility] [address] [id number] [facility] [place] [address] May, [facility] [address] [id number] [facility] [place] [address] May, [facility] [address] [id number] [facility] [place] [address] May, [facility] [address] [id number] [facility] [place] [address] Apr, [facility] [address] [id number] [address] [place] [address], [place] [address] Apr, [facility] [address] [id number] [address] [place] [address], [place] [address] Apr, [facility] [address] [id number] [address] [place] [address], [place] [address] Apr, [facility] [address] [id number] [address] [place] [address], [place] [address] Apr, [facility] [address] [id number] [address] [place] [address], [place] [address] Apr, [facility] [address] [id number] [address] [place] [address], [place] [address] Apr, [facility] [address] [id number] [address] [place] [address], [place] [address] Apr, [facility] [address] [id number] [address] [place] [address], [place] [address] Apr, [facility] [address] [id number] [address] [place] [address], [place] [address] Apr, [facility] [address] [id number] [address] [place] [address], [place] [address] Apr, [facility] [address] [id number] [address] [place] [address], [place] [address] Mar, [facility] [address] [id number] [address] [place] [address], [place] [address] Mar, [facility] [address] [id number] [address] [place] [address], [place] [address] Mar, [facility] [address] [id number] [address] [place] [address], [place] [address] Mar, [facility] [address] [id number] [address] [place] [address], [place] [address] February, [facility] [address] [id number] [address] [place] [address], [place] [address] February, [facility] [address] [id number] [address] [place] [address], [place] [address] Jan, [facility] [address] [id number] [address] [place] [address], [place] [address] Jan, [address] [id number] Jan, [facility] [address] [id number] [address] [place] [address], [place] [address] Jan, [facility] [address] [id number] [address] [place] [address], [place] [address] Jan, [facility] [address] [id number] [address] [place] [address], [place] [address] Jan, [facility] [address] [id number] [address] [place] [address], [place] [address] Jan, [facility] [address] [id number] [address] [place] [address], [place] [address] Jan, [facility] [address] [id number] [address] [place] [address], [place] [address] Jan, [facility] [address] [id number] [address] [place] [address], [place] [address] Jan, [facility] [address] [id number] [address] [place] [address], [place] [address] Jan, [facility] [address] [id number] [facility] [place] [address] Jan, [facility] [address] [id number] [address] [place] [address], [place] [address] Jan, [facility] [address] [id number] [address] [place] [address], [place] [address] Jan, [facility] [address] [id number] [address] [place] [address], [place] [address] Jan, [facility] [address] [id number] [address] [place] [address], [place] [address] Jan, [facility] [address] [id number] [address] [place] [address], [place] [address] Jan, [facility] [address] [id number] [address] [place] [address], [place] [address] Dec, [facility] [address] [id number] [address] [place] [address], [place] [address] Dec, [facility] [address] [id number] [address] [place] [address], [place] [address] Dec, [facility] [address] [id number] [address] [place] [address], [place] [address] Dec, [facility] [address] [id number] [address] [place] [address], [place] [address] Dec, [facility] [address] [id number] [address] [place] [address], [place] [address] Dec, [facility] [address] [id number] [address] [place] [address], [place] [address] Dec, [facility] [address] [id number] [address] [place] [address], [place] [address] Nov, [facility] [address] [id number] [address] [place] [address], [place] [address] Nov, [facility] [address] [id number] [address] [place] [address], [place] [address] Nov, [facility] [address] [id number] [address] [place] [address], [place] [address] Nov, [facility] [address] [id number] [address] [place] [address], [place] [address] Nov, [facility] [address] [id number] [address] [place] [address], [place] [address] Nov, [facility] [address] [id number] [address] [place] [address], [place] [address] Nov, [facility] [address] [id number] [address] [place] [address], [place] [address] Oct, [facility] [address] [id number] [address] [place] [address], [place] [address] Oct, [facility] [address] [id number] [address] [place] [address], [place] [address] Sep, [facility] [address] [id number] [address] [place] [address], [place] [address] Sep, [facility] [address] [id number] [address] [place] [address], [place] [address] Sep, [facility] [address] [id number] [address] [place] [address], [place] [address] Sep, [facility] [address] [id number] [address] [place] [address], [place] [id number] Sep, [facility] [address] [id number] [address] [place] [address], [place] [id number] Sep, [facility] [address] [id number] [address] [place] [address], [place] [id number] Sep, [facility] [address] [id number] [address] [place] [address], [place] [address] Sep, [facility] [address] [id number] [address] [place] [address], [place] [address] Sep, [facility] [address] [id number] [address] [place] [phone] Sep, [facility] [address] [id number] [address] [place] [id number] Aug, [facility] [address] [id number] [address] [place] [phone] Aug, [facility] [address] [id number] [address] [place] [phone] Aug, [facility] [address] [id number] [address] [place] [phone] Aug, [facility] [address] [id number] [address] [place] [phone] Aug, [facility] [address] [id number] [address] [place] [id number] Jul, [facility] [address] [id number] [address] [place] [phone] Jul, [facility] [address] [id number] [address] [place] [phone] Jul, [facility] [address] [id number] [address] [place] [id number] Jul, IMMUNIZATIONS No Known Immunizations SOCIAL HISTORY [...]
--- OUTSIDE RECORDS SUMMARY | 2020-03-16 11:42 | XMS REPORT ---
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 Name Role Phone WIL Benavides Unavailable PROBLEMS Type Condition ICD9-CM Code EJP40-HM Code Onset Dates Condition S tatus SNOMED Code Problem Sensorineural hearing loss of right ear H90.41 Active 77222479 Problem Obstructive sleep apnea on CPAP G47.33 Active 29234966 Problem Periodic limb movement sleep disorder G47.61 Active 947371458 Problem Iron deficiency anemia due to chronic blood loss D 50.0 Active 13681591 Problem MACHUCA (nonalcoholic steatohepatitis) K75.81 Active 282791801 Problem Vitamin B12 deficiency E53.8 Active 445551309 Problem Chronic diarrhea K52.9 Active 236 991325 Problem Vitamin D deficiency E55.9 Active 60918855 Problem BMI 50.0-59.9, adult Z68.43 Active 769588859 Problem Fatty liver K76.0 Active 39351058 7 Problem Anxiety F41.9 Active 24624286 Problem Major depressive disorder, recurrent episode, moderate F33.1 Active 526549246 Problem Chronic tension-type headache, intractable G44.221 Active 370575387 Problem Right upper quadrant pain R10.11 Acti ve 31727048 Problem Frequent falls R29.6 Active 77258 2001 Problem Crohn's disease of both small and large intestin e with complication K50.819 Active 88130936 Problem Type 2 diabetes mellitus with other specified complication E11.69 Active 967452401320 Problem Hyperlipidemia, unspecified E78.5 Ac tive 80891672 Problem Mixed stress and urge urinary incontinence N39.46 Active 324640488 Problem Sinusitis chronic, frontal J32.1 Act katlyn 45567890 Problem Seasonal allergies J30.2 Active 4 41927850 Problem Other chronic pain G89.29 Active 8 2446208 Problem Hyperlipidemia E78.5 Active 26523 004 Problem Bilateral primary osteoarthritis of knee M17.0 Active 843749119 Problem Essential hypertension I10 Active 36932774 Problem Acquired hypothyroidism E03.9 Active 598473713 Problem History of hysterectomy for benign disease Z90.710 Active 713502076 Problem Morbid (severe) obesity due to excess calories E66 .01 Active 380906090 Problem Other cirrhosis of liver K74.69 Activ e 14391319 Problem Portal hypertension K76.6 Active 95855044 ALLERGIES No Information ENCOUNTERS Encounter Location Date Diagnosis [place] [address] [address] [facility] [place] [facility] [id number] [address] [place] [address] 30 Dec, [id number] [place] [address] Dec, Fever, unspecified fever cau se R50.9 [place] [address] [address] [facility] [place] [id number] [address] [place] [address] Dec, Cough R05 and Fever, unspeci fied fever cause R50.9 [place] [address] [address] [facility] [place] [id number] [address] [place] [address] Dec, [place] [address] [address] [facility] [place] [id number] [address] [place] [address] Dec, [place] [address] [address] [facility] [place] [id number] [address] [place] [address] Dec, [place] [address] [address] [facility] [place] [id number] [address] [place] [address] Nov, MACHUCA (nonalcoholic steatohep atitis) K75.81 ; BMI 50.0-59.9, adult Z68.43 and Type 2 diabetes mellitus with other specified complication E11.69 [place] [address] [facility] [place] [id number] [address] [place] [address] Oct, Morbid (severe) obesity due to excess calories E66.01 and Type 2 diabetes mellitus with other specified complication E11.69 [place] [address] [facility] [place] [id number] [address] [place] [address] Oct, Essential hypertension I10 ; BMI 50.0-59.9, adult Z68.43 and Morbid (severe) obesity due to excess calories E66.01 [place] [address] [place] [id number] [address] [place] [address] Oct, Encounter for Medicare felipe jaffe wellness exam Z00.00 ; Portal hypertension K76.6 [...] E78.5 and Other cirrhosis of liver K74.69 [place] [address] [place] [id number] [address] [place] [address] Oct, [place] [address] [place] [id number] [address] [place] [address] Sep, Major depressive disorder, r ecurrent episode, moderate F33.1 ; Vitamin B12 deficiency E53.8 ; BMI 50.0-59.9, adult Z68.43 and Essential hypertension I10 [place] [address] [address] [facility] [place] [id number] [address] [place] [address] Sep, Breast pain, right N64.[address] [id number] [address] Sep, Breast pain, right N64.[address] [id number] [address] Sep, Breast pain, right N64.[address] [id number] [address] Sep, Breast pain, right N64.4 [place] [address] [address] [facility] [place] [id number] [address] [place] [address] Aug, [place] [address] [address] [facility] [place] [id number] [address] [place] [address] Aug, Major depressive disorder, r ecurrent episode, moderate F33.1 ; BMI 50.0-59.9, adult Z68.43 ; Type 2 diabetes mellitus without complication E11.9 ; Breast pain, right N64.4 and Encounter for screening mammogram for breast cancer Z12.31 [facility] [address] [id number] [place] [address] 13 Jun, 2019 Pneumonia of right middle lo be due to infectious organism J18.1 and Cough R05 [facility] [address] 340 [id number], [place] [address] 09 Jun, 2019 Acute nasopharyngitis J00 [place] [id number] [address] [place] [address] May, Iron deficiency anemia due t o [...] Major depressive disorder, recurrent episode, moderate F33.1 [place] [place] [id number] [address] [place] [address] May, Hyperlipidemia, unspecified E78.5 ; Other cirrhosis of liver K74.69 and Iron deficiency anemia due to chronic blood loss D50.0 [facility] [address] [place] [id number] [address] [place] [address] February, [facility] [address] [id number] [address] February, Acute recurrent pansinusitis J01.41 [facility] [address] 340 [id number], [place] [address] February, Acute maxillary sinusitis, r ecurrence not specified J01.00 [place] [address] [facility] [place] [facility] [id number] [address] [place] [address] Jan, Bilateral primary osteoarthr itis of knee M17.0 ; Morbid obesity E66.01 ; Viral syndrome B34.9 and Atrial dilatation, left I51.7 [place] [address] [address] Jan, [place] [address] [address] Dec, Trigeminy R00.8 [place] [address] [address] Dec, Essential hypertension I10 ; Morbid obesity E66.01 ; Low back pain M54.5 ; Other chronic pain G89.29 and Pain in right knee M25.561 [place] [address] [address] Nov, [place] [address] [address] Oct, Palpitations R00.2 [place] [address] [address] Oct, Encounter for Medicare ann l wellness exam Z00.00 ; Major depressive [...] small and large intestine with complication K50.819 [place] [address] [place] [id number] [address] [place] [address] Oct, [facility] [address] [place] [id number] [address] [place] [address] Oct, Crohn's disease of both smal l and large intestine with complication K50.819 [facility] [address] [place] [id number] [address] [place] [address] Jul, Sinusitis chronic, frontal J 32.1 ; Acute mucoid otitis media of both ears H65.113 ; Seasonal allergies J30.2 and BMI 50.0-59.9, adult Z68.43 [facility] [address] [address] 02 Jul, 2018 Essential hypertension I10 ; Type 2 diabetes mellitus with other specified complication E11.69 ; BMI 50.0-59.9, adult Z68.43 ; Mixed stress and urge urinary incontinence N39.46 and Mid back pain on right side M54.9 [place] [address] [address] 26 Jun, 2018 Iron deficiency anemia due t o chronic blood loss D50.0 ; Hyperlipidemia E78.5 ; Type 2 diabetes mellitus with other specified complication E11.69 ; Vitamin B12 deficiency E53.8 and Vitamin D deficiency E55.9 [facility] [address] [place] [id number] [address] [place] [address] 14 Jun, 2018 Cough R05 and BMI 50.0-59.9, adult Z68.43 [place] [address] [address] Jun, [facility] [address] [place] [id number] [address] [place] [address] May, Iron deficiency anemia due t o chronic blood loss D50.0 ; Chronic diarrhea K52.9 ; Essential hypertension I10 ; Type 2 diabetes mellitus with other specified complication E11.69 ; Vitamin D deficiency E55.9 ; Colon stricture K56.699 ; Vitamin B12 deficiency E53.8 ; Hyperlipidemia E78.5 and BMI 50.0-59.9, adult Z68.43 [facility] [address] [place] [id number] [address] [place] [address] May, [facility] [address] [place] [id number] [address] [place] [address] Apr, Nonhealing wound of heel S91 .309A and Body mass index (BMI) of 50- 59.9 in adult Z68.43 [place] [address] [address] Mar, [facility] [address] [address] Mar, BMI 50.0-59.9, adult Z68.43 ; Flank pain R10.9 and Weight loss counseling, encounter for Z71.3 [place] [address] [place] [id number] [address] [place] [address] February, [place] [address] [address] Jan, [place] [address] [address] Jan, [facility] [address] [address] Jan, Diarrhea due to staphylococc us A04.8 and Diarrhea, unspecified type R19.7 [place] [address] [address] Jan, Acquired hypothyroidism E03. 9 ; Type 2 diabetes mellitus with other specified complication E11.69 ; Hyperlipidemia E78.5 ; Essential hypertension I10 ; Major depressive disorder, recurrent episode, moderate F33.1 and Vitamin D deficiency E55.9 [place] [address] [place] [id number] [address] [place] [address] Jan, Type 2 diabetes mellitus wit h other specified complication E11.69 ; Hyperlipidemia E78.5 ; Essential hypertension I10 ; Acquired hypothyroidism E03.9 ; Major depressive disorder, recurrent episode, moderate F33.1 ; Vitamin D deficiency E55.9 ; Sinus congestion R09.81 and BMI 50.0-59.9, adult Z68.43 [place] [address] [place] [id number] [address] [place] [address] Dec, [place] [address] [place] [address] Sep, Encounter for immunization Z 23 [facility] [address] [address] Sep, [facility] [address] [address] Sep, Vitamin B12 deficiency E53.8 [facility] [address] [address] Aug, [place] [address] [address] Aug, BMI 60.0-69.9, adult Z68.44 and Acute non-recurrent maxillary sinusitis J01.00 [place] [address] [address] Aug, [place] [address] [address] Aug, Medicare annual wellness vis it, initial Z00.00 ; Screening for breast cancer Z12.31 ; BMI 40.0-44.9, adult Z68.41 and Acquired hypothyroidism E03.9 [place] [address] [address] Jul, Actinic keratosis L57.0 [place] [address] [address] Jul, Actinic keratosis L57.0 [place] [address] [address] Jul, Type 2 diabetes mellitus wit h other specified complication E11.69 ; Actinic keratosis L57.0 and Hypothyroidism, unspecified E03.9 [place] [address] [place] [id number] [address] [place] [address] Jul, [place] [address] [address] Jul, [place] [address] [place] [id number] [address] [place] [address] Jul, Vitamin B12 deficiency E53.8 [place] [address] [address] Jun, Acquired hypothyroidism E03. 9 and Chronic tension-type headache, intractable G44.221 [place] [address] [address] Jun, Back muscle spasm M62.830 an d BMI 50.0-59.9, adult Z68.43 [place] [address] [address] Jun, Vitamin B12 deficiency E53.8 [place] [address] [address] Jun, Crohn's disease of both smal l and large intestine with complication K50.819 [place] [address] [address] Jun, Crohn's disease of both smal l and large intestine with complication K50.819 [place] [address] [address] May, Hyperlipidemia E78.5 ; Anxie ty F41.9 and Essential hypertension I10 [place] [address] [address] May, [place] [address] [address] May, Encounter for immunization Z 23 and Vitamin B12 deficiency E53.8 [place] [address] [address] May, [place] [address] [address] Apr, [place] [address] [address] Apr, [place] [address] [id number] [address] [place] [address] Apr, Crohn's disease of both smal l and large intestine with complication K50.819 [place] [address] [id number] [address] [place] [address] Apr, Vitamin B12 deficiency E53.8 [place] [address] [id number] [address] [place] [address] Apr, Crohn's disease of both smal l and large intestine with complication K50.819 and Acute pain of right shoulder M25.511 [place] [address] [id number] [address] [place] [address] Mar, Type 2 diabetes mellitus wit hout complication E11.9 ; Frequent falls R29.6 and Other chest pain R07.89 [place] [address] [address] [facility] [place] [id number] [address] [place] [address] Mar, [place] [address] [id number] [address] [place] [address] Mar, [place] [address] [facility] [place] [id number] [address] [place] [address] Mar, Type 2 diabetes mellitus wit hout complication E11.9 and Blurry vision, bilateral H53.8 [place] [address] [id number] [address] [place] [address] Mar, Vitamin B12 deficiency E53.8 [place] [address] [id number] [address] [place] [address] Mar, Crohn's disease of both smal l and large intestine with complication K50.819 [place] [address] [id number] [address] [place] [address] February, Vitamin B12 deficiency E53.8 [place] [address] [facility] [place] [id number] [address] [place] [address] Jan, Crohn's disease of both smal l and large intestine with complication K50.819 [facility] [address] [facility] [place] [id number] [address] [place] [address] Jan, Crohn's disease of both smal l and large intestine with complication K50.819 [facility] [address] [facility] [place] [id number] [address] [place] [address] Jan, Dark brown-colored urine R82 .99 and Acute suppurative otitis media of right ear without spontaneous rupture of tympanic membrane, recurrence not specified H66.001 [facility] [address] [facility] [place] [id number] [address] [place] [address] Jan, Encounter for immunization Z 23 [place] [address] [place] [id number] [address] [place] [address] Dec, Crohn's disease of both smal l and large intestine with complication K50.819 and Eustachian tube dysfunction, right H69.81 [facility] [address] [place] [address] Dec, [facility] [address] [place] [id number] [address] [place] [address] Dec, Contusion of right knee, ini tial encounter S80.01XA [place] [address] [place] [id number] [address] [place] [address] Dec, [place] [address] [place] [id number] [address] [place] [address] Dec, Acute pain of right knee M25 .561 [facility] [address] [place] [id number] [address] [place] [address] Dec, Iron deficiency anemia due t o chronic blood loss D50.0 [place] [address] [place] [id number] [address] [place] [address] Dec, Hyperlipidemia E78.5 ; Type 2 diabetes mellitus without complication E11.9 ; Vitamin B12 deficiency E53.8 ; Essential hypertension I10 ; Obstructive sleep apnea on CPAP G47.33 and Periodic limb movement sleep disorder G47.61 [place] [address] [facility] [place] [id number] [address] [place] [address] Nov, Type 2 diabetes mellitus wit hout complication E11.9 ; Vitamin B12 deficiency E53.8 ; Hyperlipidemia E78.5 ; Essential hypertension I10 ; Obstructive sleep apnea on CPAP G47.33 ; Periodic limb movement sleep disorder G47.61 ; Anxiety F41.9 ; Acquired hypothyroidism E03.9 and Chronic tension-type headache, intractable G44.221 [place] [address] [facility] [place] [id number] [address] [place] [address] Nov, Crohn's disease of both smal l and large intestine with complication K50.819 [place] [address] [place] [id number] [address] [place] [address] Nov, Vitamin B12 deficiency E53.8 [place] [address] [place] [address] Oct, [place] [address] [place] [address] Oct, Vitamin B12 deficiency E53.8 [place] [address] [place] [id number] [address] [place] [address] Sep, [place] [address] [place] [id number] [address] [place] [address] Sep, Vitamin B12 deficiency E53.8 [place] [address] [place] [id number] [address] [place] [address] Aug, [place] [address] [place] [id number] [address] [place] [address] 14 Aug, 2016 Vitamin B12 deficiency E53.8 [place] [address] [place] [id number] [address] [place] [address] 10 Aug, 2016 [place] [address] [place] [id number] [address] [place] [address] 24 Jul, 2016 Elevated ALT measurement R74 .0 [place] [address] [place] [id number] [address] [place] [address] Jul, Hematuria R31.9 ; Acute righ t-sided thoracic back pain M54.6 ; Major depressive disorder, recurrent episode, moderate F33.1 and Elevated ALT measurement R74.0 [place] [address] [id number] [address] [place] [address] Jul, [place] [address] [facility] [place] [id number] [address] [place] [address] Jul, Elevated ALT measurement R74 .0 [place] [address] [facility] [place] [id number] [address] [place] [address] Jul, Iron deficiency anemia due t o chronic blood loss D50.0 [place] [address] [facility] [place] [id number] [address] [place] [address] 14 Jul, 2016 Type 2 diabetes mellitus wit hout complication E11.9 ; Acquired hypothyroidism E03.9 ; Iron deficiency anemia due to chronic blood loss D50.0 ; Hyperlipidemia E78.5 and Essential hypertension I10 [place] [address] [facility] [place] [id number] [address] [place] [address] Jun, [place] [address] [facility] [place] [id number] [address] [place] [address] 20 Jun, 2016 Vitamin B12 deficiency E53.8 [place] [address] [facility] [place] [id number] [address] [place] [address] 16 Jun, 2016 Type 2 diabetes mellitus wit hout complication E11.9 ; Acquired hypothyroidism E03.9 ; Iron deficiency anemia due to chronic blood loss D50.0 ; Hyperlipidemia E78.5 ; Essential hypertension I10 ; Chronic tension-type headache, intractable G44.221 ; Pulsatile tinnitus, bilateral H93.13 ; Obstructive sleep apnea on CPAP G47.33 and Major depressive disorder, recurrent episode, moderate F33.1 [place] [address] [facility] [place] [id number] [address] [place] [address] May, Vitamin B12 deficiency E53.8 [place] [address] [facility] [place] [id number] [address] [place] [address] May, [facility] [address] [id number] [address] [place] [address] Apr, Vitamin B12 deficiency E53.8 [facility] [address] [id number] [address] [place] [address] 05 Apr, 2016 [facility] [address] [facility] [place] [id number] [address] [place] [address] Mar, Chronic tension-type headach e, intractable G44.221 and Major depressive disorder, recurrent episode, moderate F33.1 [facility] [address] [facility] [place] [id number] [address] [place] [address] Mar, Vitamin B12 deficiency E53.8 [facility] [address] [facility] [place] [id number] [address] [place] [address] February, [facility] [address] [facility] [place] [id number] [address] [place] [address] February, Vitamin B12 deficiency E53.8 [facility] [address] [facility] [place] [id number] [address] [place] [address] February, [facility] [address] [facility] [place] [id number] [address] [place] [phone] Jan, Dysuria R30.0 [facility] [address] [facility] [place] [id number] [address] [place] [phone] Jan, Type 2 diabetes mellitus wit hout complication E11.9 and Essential hypertension I10 [facility] [address] [facility] [place] [id number] [address] [place] [phone] 15 Jan, 2016 Chronic diarrhea K52.9 [facility] [address] [facility] [place] [id number] [address] [place] [phone] 13 Jan, 2016 [facility] [address] [facility] [place] [id number] [address] [place] [phone] 12 Jan, 2016 Chronic diarrhea K52.9 [facility] [address] [facility] [place] [id number] [address] [place] [phone] Jan, [facility] [address] [facility] [place] [id number] [address] [place] [id number] 12 Jan, 2016 Dysuria R30.0 [facility] [address] [facility] [place] [id number] [address] [place] [id number] 07 Jan, 2016 Vitamin B12 deficiency E53.8 [facility] [address] [facility] [place] [facility] [id number] [address] [place] [id number] 07 Jan, 2016 Dysuria R30.0 and Iron defic iency anemia due to chronic blood loss D50.0 [facility] [address] [facility] [place] [id number] [address] [place] [id number] 05 Jan, 2016 Dysuria R30.0 [facility] [address] [facility] [place] [id number] [address] [place] [id number] 04 Jan, 2016 [facility] [address] [id number] [address] [place] [id number] 15 Dec, 2015 [facility] [address] [facility] [place] [facility] [id number] [address] [place] [id number] 11 Dec, 2015 Iron deficiency anemia due t o chronic blood loss D50.0 [facility] [address] [facility] [place] [facility] [id number] [address] [place] [id number] 10 Dec, 2015 Dysuria R30.0 ; Fatigue R53. 83 ; Hyperlipidemia E78.5 and Diarrhea R19.7 [facility] [address] [facility] [place] [facility] [id number] [address] [place] [id number] 09 Dec, 2015 [facility] [address] [facility] [place] [facility] [id number] [address] [place] [id number] 02 Dec, 2015 [facility] [address] [id number] [address] [place] [id number] 10 Nov, 2015 Vitamin B12 deficiency E53.8 [facility] [address] [facility] [place] [facility] [id number] [address] [place] [id number] Oct, Vitamin B12 deficiency E53.8 [facility] [address] [place] [address] 12 Oct, 2015 [facility] [address] [facility] [place] [facility] [id number] [address] [place] [id number] 09 Oct, 2015 Headache R51 [facility] [address] [id number] [address] [place] [id number] 07 Oct, 2015 Essential hypertension I10 ; Type 2 diabetes mellitus without complication E11.9 ; Vitamin B12 deficiency E53.8 ; Acquired hypothyroidism E03.9 ; Iron deficiency anemia due to chronic blood loss D50.0 and Hyperlipidemia E78.5 [facility] [address] [facility] [place] [facility] [id number] [address] [place] [id number] 17 Sep, 2015 Essential hypertension I10 ; Vitamin B12 deficiency E53.8 ; Iron deficiency anemia due to chronic blood loss D50.0 ; Type 2 diabetes mellitus without complication E11.9 ; Hyperlipidemia E78.5 and Acquired hypothyroidism E03.9 [facility] [id number] [place] [id number] 08 Sep, 2015 [facility] [id number] [place] [id number] Sep, [facility] [address] [id number] [address] [place] [id number] Jul, [facility] [address] [id number] [address] [place] [phone] Jun, [facility] [address] [id number] [address] [place] [id number] 18 Jun, 2015 [facility] [address] [id number] [address] [place] [id number] 15 Jun, 2015 Hyperlipidemia 272.4 ; Iron deficiency anemia 280.9 ; Hypothyroidism 244.9 ; Diabetes mellitus without mention of complication, type II or unspecified type, not stated as uncontrolled 250.00 and Hypertension 401.9 [facility] [address] [id number] [address] [place] [id number] 04 Jun, 2015 [facility] [address] [id number] [address] [place] [id number] Jun, [facility] [address] [facility] [place] [facility] [id number] [address] [place] [id number] May, Hyperlipidemia 272.4 [facility] [address] [facility] [place] [facility] [id number] [address] [place] [id number] May, [facility] [address] [facility] [place] [facility] [id number] [address] [place] [id number] May, [facility] [address] [facility] [place] [facility] [id number] [address] [place] [id number] Apr, Diabetes mellitus without me ntion of complication, type II or unspecified type, not stated as uncontrolled 250.00 ; Hypothyroidism 244.9 ; Hyperlipidemia 272.4 ; Pain in joint, lower leg 719.46 and RUQ pain 789.01 [facility] [address] [facility] [place] [facility] [id number] [address] [place] [phone] Mar, Sinusitis 473.9 [facility] [address] [facility] [place] [facility] [id number] [address] [place] [phone] Mar, [facility] [address] [facility] [place] [facility] [id number] [address] [place] [phone] Mar, [facility] [address] [facility] [place] [facility] [id number] [address] [place] [id number] Mar, Hematochezia 578.1 [facility] [address] [facility] [place] [facility] [id number] [address] [place] [id number] February, Sinusitis 473.9 [facility] [address] [facility] [place] [facility] [id number] [address] [place] [id number] February, [facility] [address] [facility] [place] [facility] [id number] [address] [place] [id number] Jan, [facility] [address] [facility] [place] [facility] [id number] [address] [place] [phone] Jan, [facility] [address] [facility] [place] [facility] [id number] [address] [place] [phone] Dec, [facility] [place] [facility] [address] [id number] [address] [place] [address], [place] [address] Dec, [facility] [place] [facility] [address] [id number] [address] [place] [address], [place] [address] Dec, [facility] [place] [facility] [address] [id number] [address] [place] [address], [place] [address] Dec, [facility] [place] [facility] [address] [id number] [address] [place] [address], [place] [address] Dec, [facility] [place] [facility] [address] [id number] [address] [place] [address], [place] [address] Dec, [facility] [place] [facility] [address] [id number] [address] [place] [address], [place] [address] Dec, [facility] [place] [facility] [address] [id number] [address] [place] [address], [place] [address] Dec, [facility] [place] [facility] [address] [id number] [address] [place] [address], [place] [address] Dec, [facility] [place] [facility] [address] [id number] [address] [place] [address], [place] [address] Dec, [facility] [place] [facility] [address] [id number] [address] [place] [address], [place] [address] Dec, [facility] [place] [facility] [address] [id number] [address] [place] [address], [place] [address] Nov, [facility] [place] [facility] [address] [id number] [address] [place] [address], [place] [address] Nov, [facility] [place] [facility] [address] [id number] [address] [place] [address], [place] [address] Nov, [facility] [place] [facility] [address] [id number] [address] [place] [address], [place] [address] Nov, [facility] [place] [facility] [address] [id number] [address] [place] [address], [place] [address] Oct, [facility] [place] [facility] [address] [id number] [address] [place] [address], [place] [address] Oct, [facility] [address] [id number] [address] [place] [address], [place] [address] Oct, [facility] [address] [id number] [address] [place] [address], [place] [address] Oct, [facility] [address] [id number] [address] [place] [address], [place] [address] Oct, [facility] [address] [id number] [address] [place] [address], [place] [address] Oct, [facility] [address] [id number] [address] [place] [address], [place] [address] Sep, [facility] [address] [id number] [address] [place] [address], [place] [address] Sep, [facility] [address] [id number] [address] [place] [address], [place] [address] Sep, [facility] [address] [id number] [address] [place] [address], [place] [address] Sep, [facility] [address] [id number] [address] [place] [address], [place] [address] Sep, [facility] [address] [id number] [address] [place] [address], [place] [address] Sep, [facility] [address] [id number] [address] [place] [address], [place] [address] Sep, [facility] [address] [id number] [address] [place] [address], [place] [address] Aug, [facility] [address] [id number] [address] [place] [address], [place] [address] Aug, [facility] [address] [id number] [address] [place] [address], [place] [address] Aug, [facility] [address] [id number] [address] [place] [address], [place] [address] Aug, [facility] [address] [id number] [address] [place] [address], [place] [address] Aug, [facility] [place] [facility] [address] [id number] [address] [place] [address], [place] [address] Aug, [facility] [place] [facility] [address] [id number] [address] [place] [address], [place] [address] Aug, [facility] [place] [facility] [address] [id number] [address] [place] [address], [place] [address] Aug, [facility] [place] [facility] [address] [id number] [address] [place] [address], [place] [address] Aug, [facility] [place] [facility] [address] [id number] [address] [place] [address], [place] [address] Aug, [facility] [place] [facility] [address] [id number] [address] [place] [address], [place] [address] Aug, [facility] [place] [facility] [address] [id number] [address] [place] [address], [place] [address] Aug, [facility] [place] [facility] [address] [id number] [address] [place] [address], [place] [address] Aug, [facility] [place] [facility] [address] [id number] [address] [place] [address], [place] [address] Aug, [facility] [place] [facility] [address] [id number] [address] [place] [id number] Jul, [facility] [place] [facility] [address] [id number] [address] [place] [id number] Jul, [facility] [place] [facility] [address] [id number] [address] [place] [address], [place] [address] Jul, [facility] [place] [facility] [address] [id number] [address] [place] [id number] Jul, [facility] [place] [facility] [address] [id number] [address] [place] [address] Jun, [facility] [place] [facility] [address] [id number] [address] [place] [id number] 24 Jun, 2013 [facility] [address] [id number] [address] [place] [address], [place] [address] 23 Jun, 2013 [facility] [place] [facility] [address] [id number] [address] [place] [address], [place] [address] 23 Jun, 2013 [facility] [address] [id number] [address] [place] [address], [place] [address] 19 Jun, 2013 [facility] [address] [id number] [address] [place] [address], [place] [address] 19 Jun, 2013 [facility] [address] [id number] [address] [place] [address], [place] [address] 11 Jun, 2013 [facility] [address] [id number] [address] [place] [address], [place] [address] 11 Jun, 2013 [facility] [address] [id number] [address] [place] [address], [place] [address] 11 Jun, 2013 [facility] [address] [id number] [address] [place] [address], [place] [address] 11 Jun, 2013 [facility] [address] [id number] [address] [place] [address], [place] [address] 10 Jun, 2013 [facility] [address] [id number] [address] [place] [address], [place] [address] 10 Jun, 2013 [facility] [address] [id number] [address] [place] [address], [place] [address] 09 Jun, 2013 [facility] [place] [facility] [address] [id number] [address] [place] [address], [place] [address] 09 Jun, 2013 [facility] [place] [facility] [address] [id number] [address] [place] [address], [place] [address] 14 May, 2014 [facility] [place] [facility] [address] [id number] [address] [place] [address], [place] [address] 14 May, 2014 [facility] [place] [facility] [address] [id number] [address] [place] [address], [place] [address] 13 May, 2014 [facility] [place] [facility] [address] [id number] [facility] [address] May, [facility] [address] [id number] [facility] [place] [address] May, [facility] [place] [facility] [address] [id number] [facility] [place] [address] May, [facility] [address] [id number] [facility] [place] [address] Apr, [facility] [address] [id number] [facility] [place] [address] Apr, [facility] [address] [id number] [address] [place] [address], [place] [address] Apr, [facility] [address] [id number] [address] [place] [address], [place] [address] Apr, [facility] [address] [id number] [address] [place] [address], [place] [address] Apr, [facility] [address] [id number] [address] [place] [address], [place] [address] Apr, [facility] [address] [id number] [address] [place] [address], [place] [address] Apr, [facility] [address] [id number] [address] [place] [address], [place] [address] Apr, [facility] [place] [facility] [address] [id number] [address] [place] [address], [place] [address] Apr, [facility] [address] [id number] [address] [place] [address], [place] [address] Apr, [facility] [place] [facility] [address] [id number] [address] [place] [address], [place] [address] Apr, [facility] [place] [facility] [address] [id number] [address] [place] [address], [place] [address] Mar, [facility] [place] [facility] [address] [id number] [address] [place] [address], [place] [address] Mar, [facility] [address] [id number] [address] [place] [address], [place] [address] Mar, [facility] [address] [id number] [address] [place] [address], [place] [address] Mar, [facility] [address] [id number] [address] [place] [address], [place] [address] February, [facility] [address] [id number] [address] [place] [address], [place] [address] February, [facility] [address] [id number] [address] [place] [address], [place] [address] Jan, [facility] [address] [id number] [address] [place] [address], [place] [address] Jan, [address] [id number] Jan, [facility] [address] [id number] [address] [place] [address], [place] [address] Jan, [facility] [address] [id number] [address] [place] [address], [place] [address] Jan, [facility] [address] [id number] [address] [place] [address], [place] [address] Jan, [facility] [address] [id number] [address] [place] [address], [place] [address] Jan, [facility] [address] [id number] [address] [place] [address], [place] [address] Jan, [facility] [address] [id number] [address] [place] [address], [place] [address] Jan, [facility] [address] [id number] [address] [place] [address], [place] [address] Jan, [facility] [address] [id number] [address] [place] [address], [place] [address] Jan, [facility] [address] [id number] [address] [place] [address], [place] [address] Jan, [facility] [place] [facility] [address] [id number] [facility] [place] [address] Jan, [facility] [place] [facility] [address] [id number] [address] [place] [address], [place] [address] Jan, [facility] [place] [facility] [address] [id number] [address] [place] [address], [place] [address] Jan, [facility] [place] [facility] [address] [id number] [address] [place] [address], [place] [address] Jan, [facility] [place] [facility] [address] [id number] [address] [place] [address], [place] [address] Jan, [facility] [place] [facility] [address] [id number] [address] [place] [address], [place] [address] Dec, [facility] [place] [facility] [address] [id number] [address] [place] [address], [place] [address] Dec, [facility] [place] [facility] [address] [id number] [address] [place] [address], [place] [address] Dec, [facility] [place] [facility] [address] [id number] [address] [place] [address], [place] [address] Dec, [facility] [place] [facility] [address] [id number] [address] [place] [address], [place] [address] Dec, [facility] [place] [facility] [address] [id number] [address] [place] [address], [place] [address] Dec, [facility] [place] [facility] [address] [id number] [address] [place] [address], [place] [address] Dec, [facility] [place] [facility] [address] [id number] [address] [place] [address], [place] [address] Nov, [facility] [place] [facility] [address] [id number] [address] [place] [address], [place] [address] Nov, [facility] [place] [facility] [address] [id number] [address] [place] [address], [place] [address] Nov, [facility] [place] [facility] [address] [id number] [address] [place] [address], [place] [id number] Nov, [facility] [address] [id number] [address] [place] [address], [place] [address] Nov, [facility] [address] [id number] [address] [place] [address], [place] [address] Nov, [facility] [address] [id number] [address] [place] [address], [place] [address] Nov, [facility] [address] [id number] [address] [place] [address], [place] [address] Oct, [facility] [address] [id number] [address] [place] [address], [place] [address] Oct, [facility] [address] [id number] [address] [place] [address], [place] [address] Sep, [facility] [address] [id number] [address] [place] [address], [place] [address] Sep, [facility] [address] [id number] [address] [place] [address], [place] [address] Sep, [facility] [address] [id number] [address] [place] [address], [place] [address] Sep, [facility] [address] [id number] [address] [place] [address], [place] [address] Sep, [facility] [address] [id number] [address] [place] [address], [place] [address] Sep, [facility] [address] [id number] [address] [place] [address], [place] [address] Sep, [facility] [address] [id number] [address] [place] [address], [place] [address] Sep, [facility] [address] [id number] [address] [place] [address], [place] [address] Sep, [facility] [address] [id number] [address] [place] [address], [place] [address] Sep, [facility] [address] [id number] [address] [place] [id number] Aug, [facility] [address] [id number] [address] [place] [id number] Aug, [facility] [address] [id number] [address] [place] [id number] Aug, [facility] [address] [id number] [address] [place] [id number] Aug, [facility] [address] [id number] [address] [place] [id number] Aug, [facility] [address] [id number] [address] [place] [id number] Jul, [facility] [address] [id number] [address] [place] [id number] Jul, [facility] [address] [id number] [address] [place] [id number] Jul, [facility] [address] [id number] [address] [place] [id number] Jul, IMMUNIZATIONS No Known Immunizations SOCIAL HISTORY [...]
--- OUTSIDE RECORDS SUMMARY | 2020-03-16 11:43 | XMS REPORT ---
Author Author Swathi Benavides Organization [facility] Address [address] [place] [address] Care Team Providers Care Senior Solutions Engineer Name Role Phone WIL Benavides Unavailable PROBLEMS Type Condition ICD9-CM Code UMW28-GO Code Onset Dates Condition S tatus SNOMED Code Problem Sensorineural hearing loss of right ear H90.41 Active 87848617 Problem Obstructive sleep apnea on CPAP G47.33 Active 81687783 Problem Periodic limb movement sleep disorder G47.61 Active 539801715 Problem Iron deficiency anemia due to chronic blood loss D 50.0 Active 28793117 Problem MACHUCA (nonalcoholic steatohepatitis) K75.81 Active 976189390 Problem Vitamin B12 deficiency E53.8 Active 598185520 Problem Chronic diarrhea K52.9 Active 236 626804 Problem Vitamin D deficiency E55.9 Active 34170598 Problem BMI 50.0-59.9, adult Z68.43 Active 414051686 Problem Fatty liver K76.0 Active 89600634 7 Problem Anxiety F41.9 Active 50820877 Problem Major depressive disorder, recurrent episode, moderate F33.1 Active 452440677 Problem Chronic tension-type headache, intractable G44.221 Active 630553378 Problem Right upper quadrant pain R10.11 Acti ve 01568207 Problem Frequent falls R29.6 Active 56321 2001 Problem Crohn's disease of both small and large intestin e with complication K50.819 Active 16546055 Problem Type 2 diabetes mellitus with other specified complication E11.69 Active 843779047846 Problem Hyperlipidemia, unspecified E78.5 Ac tive 23523881 Problem Mixed stress and urge urinary incontinence N39.46 Active 484958375 Problem Sinusitis chronic, frontal J32.1 Act katlyn 49676367 Problem Seasonal allergies J30.2 Active 4 21258765 Problem Other chronic pain G89.29 Active 8 2533283 Problem Hyperlipidemia E78.5 Active 33543 004 Problem Bilateral primary osteoarthritis of knee M17.0 Active 596780413 Problem Essential hypertension I10 Active 26968708 Problem Acquired hypothyroidism E03.9 Active 669082573 Problem History of hysterectomy for benign disease Z90.710 Active 112708049 Problem Morbid (severe) obesity due to excess calories E66 .01 Active 740653872 Problem Other cirrhosis of liver K74.69 Activ e 25653825 Problem Portal hypertension K76.6 Active 51367866 ALLERGIES No Information ENCOUNTERS Encounter Location Date Diagnosis [place] [address] [address] [facility] [id number] [address] [place] [address] 30 Dec, [id number] [place] [address] Dec, Fever, unspecified fever cau se R50.9 [place] [address] [address] [facility] [id number] [address] [place] [address] Dec, Cough R05 and Fever, unspeci fied fever cause R50.9 [place] [address] [address] [facility] [id number] [address] [place] [address] Dec, [place] [address] [address] [facility] [id number] [address] [place] [address] Dec, [place] [address] [address] [facility] [id number] [address] [place] [address] Dec, [place] [address] [address] [facility] [id number] [address] [place] [address] Nov, MACHUCA (nonalcoholic steatohep atitis) K75.81 ; BMI 50.0-59.9, adult Z68.43 and Type 2 diabetes mellitus with other specified complication E11.69 [place] [address] [facility] [id number] [address] [place] [address] Oct, Morbid (severe) obesity due to excess calories E66.01 and Type 2 diabetes mellitus with other specified complication E11.69 [place] [address] [facility] [id number] [address] [place] [address] Oct, Essential hypertension I10 ; BMI 50.0-59.9, adult Z68.43 and Morbid (severe) obesity due to excess calories E66.01 [place] [address] [address] [place] [id number] [address] [place] [address] Oct, Encounter for Medicare [facility] [...] E78.5 and Other cirrhosis of liver K74.69 [place] [address] [address] [place] [id number] [address] [place] [address] Oct, [place] [address] [address] [place] [id number] [address] [place] [address] Sep, Major depressive disorder, r ecurrent episode, moderate F33.1 ; Vitamin B12 deficiency E53.8 ; BMI 50.0-59.9, adult Z68.43 and Essential hypertension I10 [place] [address] [address] [facility] [id number] [address] [place] [address] Sep, Breast pain, right N64.[address] [id number] [address] Sep, Breast pain, right N64.[id number] [address] Sep, Breast pain, right N64.[address] [id number] [address] Sep, Breast pain, right N64.4 [place] [address] [address] [facility] [id number] [address] [place] [address] Aug, [place] [address] [address] [facility] [id number] [address] [place] [address] Aug, Major depressive disorder, r ecurrent episode, moderate F33.1 ; BMI 50.0-59.9, adult Z68.43 ; Type 2 diabetes mellitus without complication E11.9 ; Breast pain, right N64.4 and Encounter for screening mammogram for breast cancer Z12.31 [facility] [address] [id number] [address] 13 Jun, 2019 Pneumonia of right middle lo be due to infectious organism J18.1 and Cough R05 [facility] [address] [id number] [address] 09 Jun, 2019 Acute nasopharyngitis J00 [place] [place] [id number] [address] [place] [address] May, Iron deficiency anemia due t o [...] Major depressive disorder, recurrent episode, moderate F33.1 [place] [address] [place] [id number] [address] [place] [address] May, Hyperlipidemia, unspecified E78.5 ; Other cirrhosis of liver K74.69 and Iron deficiency anemia due to chronic blood loss D50.0 [facility] [address] [place] [id number] [address] [place] [address] February, [facility] [address] [id number] [address] February, Acute recurrent pansinusitis J01.41 [facility] [address] [id number] [address] February, Acute maxillary sinusitis, r ecurrence not specified J01.00 [place] [address] [facility] [id number] [address] [place] [address] Jan, Bilateral primary osteoarthr itis of knee M17.0 ; Morbid obesity E66.01 ; Viral syndrome B34.9 and Atrial dilatation, left I51.7 [place] [address] [address] Jan, [place] [address] [address] Dec, Trigeminy R00.8 [place] [address] [address] Dec, Essential hypertension I10 ; Morbid obesity E66.01 ; Low back pain M54.5 ; Other chronic pain G89.29 and Pain in right knee M25.561 [place] [address] [address] Nov, [place] [address] [address] Oct, Palpitations R00.2 [place] [address] [address] Oct, Encounter for Medicare ann l wellness [...] small and large intestine with complication K50.819 [place] [address] [address] [place] [id number] [address] [place] [address] Oct, [facility] [address] [place] [id number] [address] [place] [address] Oct, Crohn's disease of both smal l and large intestine with complication K50.819 [facility] [address] [place] [id number] [address] [place] [address] Jul, Sinusitis chronic, frontal J 32.1 ; Acute mucoid otitis media of both ears H65.113 ; Seasonal allergies J30.2 and BMI 50.0-59.9, adult Z68.43 [facility] [address] [address] 02 Jul, 2018 Essential hypertension I10 ; Type 2 diabetes mellitus with other specified complication E11.69 ; BMI 50.0-59.9, adult Z68.43 ; Mixed stress and urge urinary incontinence N39.46 and Mid back pain on right side M54.9 [place] [address] [address] 26 Jun, 2018 Iron deficiency anemia due t o chronic blood loss D50.0 ; Hyperlipidemia E78.5 ; Type 2 diabetes mellitus with other specified complication E11.69 ; Vitamin B12 deficiency E53.8 and Vitamin D deficiency E55.9 [facility] [address] [place] [id number] [address] [place] [address] 14 Jun, 2018 Cough R05 and BMI 50.0-59.9, adult Z68.43 [place] [address] [address] Jun, [facility] [address] [place] [id number] [address] [place] [address] May, Iron deficiency anemia due t o chronic blood loss D50.0 ; Chronic diarrhea K52.9 ; Essential hypertension I10 ; Type 2 diabetes mellitus with other specified complication E11.69 ; Vitamin D deficiency E55.9 ; Colon stricture K56.699 ; Vitamin B12 deficiency E53.8 ; Hyperlipidemia E78.5 and BMI 50.0-59.9, adult Z68.43 [facility] [address] [place] [id number] [address] [place] [address] May, [facility] [address] [place] [id number] [address] [place] [address] Apr, Nonhealing wound of heel S91 .309A and Body mass index (BMI) of 50- 59.9 in adult Z68.43 [place] [address] [address] Mar, [facility] [address] [address] Mar, BMI 50.0-59.9, adult Z68.43 ; Flank pain R10.9 and Weight loss counseling, encounter for Z71.3 [place] [address] [address] [place] [id number] [address] [place] [address] February, [place] [address] [address] Jan, [place] [address] [address] Jan, [facility] [address] [address] Jan, Diarrhea due to staphylococc us A04.8 and Diarrhea, unspecified type R19.7 [place] [address] [address] Jan, Acquired hypothyroidism E03. 9 ; Type 2 diabetes mellitus with other specified complication E11.69 ; Hyperlipidemia E78.5 ; Essential hypertension I10 ; Major depressive disorder, recurrent episode, moderate F33.1 and Vitamin D deficiency E55.9 [place] [address] [address] [place] [id number] [address] [place] [address] Jan, Type 2 diabetes mellitus wit h other specified complication E11.69 ; Hyperlipidemia E78.5 ; Essential hypertension I10 ; Acquired hypothyroidism E03.9 ; Major depressive disorder, recurrent episode, moderate F33.1 ; Vitamin D deficiency E55.9 ; Sinus congestion R09.81 and BMI 50.0-59.9, adult Z68.43 [place] [address] [address] [place] [id number] [address] [place] [address] Dec, [place] [address] [place] [address] Sep, Encounter for immunization Z 23 [facility] [address] [address] Sep, [facility] [address] [address] Sep, Vitamin B12 deficiency E53.8 [facility] [address] [address] Aug, [place] [address] [address] Aug, BMI 60.0-69.9, adult Z68.44 and Acute non-recurrent maxillary sinusitis J01.00 [place] [address] [address] Aug, [place] [address] [address] Aug, Medicare annual wellness vis it, initial Z00.00 ; Screening for breast cancer Z12.31 ; BMI 40.0-44.9, adult Z68.41 and Acquired hypothyroidism E03.9 [place] [address] [address] Jul, Actinic keratosis L57.0 [place] [address] [address] Jul, Actinic keratosis L57.0 [place] [address] [address] Jul, Type 2 diabetes mellitus wit h other specified complication E11.69 ; Actinic keratosis L57.0 and Hypothyroidism, unspecified E03.9 [place] [address] [address] [place] [id number] [address] [place] [address] Jul, [place] [address] [address] Jul, [place] [address] [address] [place] [id number] [address] [place] [address] Jul, Vitamin B12 deficiency E53.8 [place] [address] [address] Jun, Acquired hypothyroidism E03. 9 and Chronic tension-type headache, intractable G44.221 [place] [address] [address] Jun, Back muscle spasm M62.830 an d BMI 50.0-59.9, adult Z68.43 [place] [address] [address] Jun, Vitamin B12 deficiency E53.8 [place] [address] [address] Jun, Crohn's disease of both smal l and large intestine with complication K50.819 [place] [address] [address] Jun, Crohn's disease of both smal l and large intestine with complication K50.819 [place] [address] [address] May, Hyperlipidemia E78.5 ; Anxie ty F41.9 and Essential hypertension I10 [place] [address] [address] May, [place] [address] [address] May, Encounter for immunization Z 23 and Vitamin B12 deficiency E53.8 [place] [address] [address] May, [place] [address] [address] Apr, [place] [address] [address] Apr, [place] [address] [id number] [address] [place] [address] Apr, Crohn's disease of both smal l and large intestine with complication K50.819 [place] [address] [id number] [address] [place] [address] Apr, Vitamin B12 deficiency E53.8 [place] [address] [id number] [address] [place] [address] Apr, Crohn's disease of both smal l and large intestine with complication K50.819 and Acute pain of right shoulder M25.511 [place] [address] [id number] [address] [place] [address] Mar, Type 2 diabetes mellitus wit hout complication E11.9 ; Frequent falls R29.6 and Other chest pain R07.89 [place] [address] [address] [facility] [id number] [address] [place] [address] Mar, [place] [address] [id number] [address] [place] [address] Mar, [place] [address] [address] [facility] [id number] [address] [place] [address] Mar, Type 2 diabetes mellitus wit hout complication E11.9 and Blurry vision, bilateral H53.8 [place] [address] [id number] [address] [place] [address] Mar, Vitamin B12 deficiency E53.8 [place] [address] [id number] [address] [place] [address] Mar, Crohn's disease of both smal l and large intestine with complication K50.819 [place] [address] [id number] [address] [place] [address] February, Vitamin B12 deficiency E53.8 [place] [address] [address] [facility] [id number] [address] [place] [address] Jan, Crohn's disease of both smal l and large intestine with complication K50.819 [facility] [address] [facility] [id number] [address] [place] [address] Jan, Crohn's disease of both smal l and large intestine with complication K50.819 [facility] [address] [facility] [id number] [address] [place] [address] Jan, Dark brown-colored urine R82 .99 and Acute suppurative otitis media of right ear without spontaneous rupture of tympanic membrane, recurrence not specified H66.001 [facility] [address] [facility] [id number] [address] [place] [address] Jan, Encounter for immunization Z 23 [place] [address] [place] [id number] [address] [place] [address] Dec, Crohn's disease of both smal l and large intestine with complication K50.819 and Eustachian tube dysfunction, right H69.81 [facility] [id number] [place] [address] Dec, [facility] [address] [place] [id number] [address] [place] [address] Dec, Contusion of right knee, ini tial encounter S80.01XA [place] [address] [place] [id number] [address] [place] [address] Dec, [place] [address] [place] [id number] [address] [place] [address] Dec, Acute pain of right knee M25 .561 [facility] [address] [place] [id number] [address] [place] [address] Dec, Iron deficiency anemia due t o chronic blood loss D50.0 [place] [address] [place] [id number] [address] [place] [address] Dec, Hyperlipidemia E78.5 ; Type 2 diabetes mellitus without complication E11.9 ; Vitamin B12 deficiency E53.8 ; Essential hypertension I10 ; Obstructive sleep apnea on CPAP G47.33 and Periodic limb movement sleep disorder G47.61 [place] [facility] [id number] [address] [place] [address] Nov, Type 2 diabetes mellitus wit hout complication E11.9 ; Vitamin B12 deficiency E53.8 ; Hyperlipidemia E78.5 ; Essential hypertension I10 ; Obstructive sleep apnea on CPAP G47.33 ; Periodic limb movement sleep disorder G47.61 ; Anxiety F41.9 ; Acquired hypothyroidism E03.9 and Chronic tension-type headache, intractable G44.221 [place] [address] [address] [facility] [id number] [address] [place] [address] Nov, Crohn's disease of both smal l and large intestine with complication K50.819 [place] [address] [place] [id number] [address] [place] [address] Nov, Vitamin B12 deficiency E53.8 [place] [id number] [place] [address] Oct, [place] [id number] [place] [address] Oct, Vitamin B12 deficiency E53.8 [place] [address] [place] [id number] [address] [place] [address] Sep, [place] [address] [place] [id number] [address] [place] [address] Sep, Vitamin B12 deficiency E53.8 [place] [address] [place] [id number] [address] [place] [address] Aug, [place] [address] [place] [id number] [address] [place] [address] 14 Aug, 2016 Vitamin B12 deficiency E53.8 [place] [address] [place] [id number] [address] [place] [address] 10 Aug, 2016 [place] [address] [place] [id number] [address] [place] [address] 24 Jul, 2016 Elevated ALT measurement R74 .0 [place] [address] [place] [id number] [address] [place] [address] Jul, Hematuria R31.9 ; Acute righ t-sided thoracic back pain M54.6 ; Major depressive disorder, recurrent episode, moderate F33.1 and Elevated ALT measurement R74.0 [place] [address] [id number] [address] [place] [address] Jul, [place] [address] [facility] [id number] [address] [place] [address] Jul, Elevated ALT measurement R74 .0 [place] [address] [facility] [id number] [address] [place] [address] Jul, Iron deficiency anemia due t o chronic blood loss D50.0 [place] [address] [facility] [id number] [address] [place] [address] 14 Jul, 2016 Type 2 diabetes mellitus wit hout complication E11.9 ; Acquired hypothyroidism E03.9 ; Iron deficiency anemia due to chronic blood loss D50.0 ; Hyperlipidemia E78.5 and Essential hypertension I10 [place] [address] [facility] [id number] [address] [place] [address] Jun, [place] [address] [facility] [id number] [address] [place] [address] 20 Jun, 2016 Vitamin B12 deficiency E53.8 [place] [address] [facility] [id number] [address] [place] [address] 16 Jun, 2016 Type 2 diabetes mellitus wit hout complication E11.9 ; Acquired hypothyroidism E03.9 ; Iron deficiency anemia due to chronic blood loss D50.0 ; Hyperlipidemia E78.5 ; Essential hypertension I10 ; Chronic tension-type headache, intractable G44.221 ; Pulsatile tinnitus, bilateral H93.13 ; Obstructive sleep apnea on CPAP G47.33 and Major depressive disorder, recurrent episode, moderate F33.1 [place] [address] [facility] [id number] [address] [place] [address] May, Vitamin B12 deficiency E53.8 [place] [address] [facility] [id number] [address] [place] [address] May, [facility] [address] [id number] [address] [place] [address] Apr, Vitamin B12 deficiency E53.8 [facility] [address] [id number] [address] [place] [address] 05 Apr, 2016 [facility] [address] [facility] [id number] [address] [place] [address] Mar, Chronic tension-type headach e, intractable G44.221 and Major depressive disorder, recurrent episode, moderate F33.1 [facility] [address] [facility] [id number] [address] [place] [address] Mar, Vitamin B12 deficiency E53.8 [facility] [address] [facility] [id number] [address] [place] [address] February, [facility] [address] [facility] [id number] [address] [place] [address] February, Vitamin B12 deficiency E53.8 [facility] [address] [facility] [id number] [address] [place] [address] February, [facility] [address] [facility] [id number] [address] [place] [address] Jan, Dysuria R30.0 [facility] [address] [facility] [id number] [address] [place] [address] Jan, Type 2 diabetes mellitus wit hout complication E11.9 and Essential hypertension I10 [facility] [address] [facility] [id number] [address] [place] [id number] 15 Jan, 2016 Chronic diarrhea K52.9 [facility] [address] [facility] [id number] [address] [place] [id number] 13 Jan, 2016 [facility] [address] [facility] [id number] [address] [place] [id number] 12 Jan, 2016 Chronic diarrhea K52.9 [facility] [address] [facility] [id number] [address] [place] [phone] Jan, [facility] [address] [facility] [id number] [address] [place] [phone] 12 Jan, 2016 Dysuria R30.0 [facility] [address] [facility] [id number] [address] [place] [id number] 07 Jan, 2016 Vitamin B12 deficiency E53.8 [facility] [address] [facility] [id number] [address] [place] [id number] 07 Jan, 2016 Dysuria R30.0 and Iron defic iency anemia due to chronic blood loss D50.0 [facility] [address] [facility] [id number] [address] [place] [id number] 05 Jan, 2016 Dysuria R30.0 [facility] [address] [facility] [id number] [address] [place] [id number] 04 Jan, 2016 [facility] [address] [id number] [address] [place] [id number] 15 Dec, 2015 [facility] [address] [facility] [id number] [address] [place] [id number] 11 Dec, 2015 Iron deficiency anemia due t o chronic blood loss D50.0 [facility] [address] [facility] [id number] [address] [place] [id number] 10 Dec, 2015 Dysuria R30.0 ; Fatigue R53. 83 ; Hyperlipidemia E78.5 and Diarrhea R19.7 [facility] [address] [facility] [id number] [address] [place] [id number] 09 Dec, 2015 [facility] [address] [facility] [id number] [address] [place] [id number] 02 Dec, 2015 [facility] [address] [id number] [address] [place] [id number] 10 Nov, 2015 Vitamin B12 deficiency E53.8 [facility] [address] [facility] [id number] [address] [place] [address] Oct, Vitamin B12 deficiency E53.8 [facility] [id number] [place] [address] 12 Oct, 2015 [facility] [address] [facility] [id number] [address] [place] [id number] 09 Oct, 2015 Headache R51 [facility] [address] [id number] [address] [place] [id number] 07 Oct, 2015 Essential hypertension I10 ; Type 2 diabetes mellitus without complication E11.9 ; Vitamin B12 deficiency E53.8 ; Acquired hypothyroidism E03.9 ; Iron deficiency anemia due to chronic blood loss D50.0 and Hyperlipidemia E78.5 [facility] [address] [facility] [id number] [address] [place] [id number] 17 Sep, 2015 Essential hypertension I10 ; Vitamin B12 deficiency E53.8 ; Iron deficiency anemia due to chronic blood loss D50.0 ; Type 2 diabetes mellitus without complication E11.9 ; Hyperlipidemia E78.5 and Acquired hypothyroidism E03.9 [facility] [id number] [place] [id number] 08 Sep, 2015 [facility] [id number] [place] [address] Sep, [facility] [address] [id number] [address] [place] [address] Jul, [facility] [address] [id number] [address] [place] [address] Jun, [facility] [address] [id number] [address] [place] [id number] 18 Jun, 2015 [facility] [address] [id number] [address] [place] [id number] 15 Jun, 2015 Hyperlipidemia 272.4 ; Iron deficiency anemia 280.9 ; Hypothyroidism 244.9 ; Diabetes mellitus without mention of complication, type II or unspecified type, not stated as uncontrolled 250.00 and Hypertension 401.9 [facility] [address] [id number] [address] [place] [id number] 04 Jun, 2015 [facility] [address] [id number] [address] [place] [phone] Jun, [facility] [address] [facility] [id number] [address] [place] [id number] May, Hyperlipidemia 272.4 [facility] [address] [facility] [id number] [address] [place] [id number] May, [facility] [address] [facility] [id number] [address] [place] [id number] May, [facility] [address] [facility] [id number] [address] [place] [id number] Apr, Diabetes mellitus without me ntion of complication, type II or unspecified type, not stated as uncontrolled 250.00 ; Hypothyroidism 244.9 ; Hyperlipidemia 272.4 ; Pain in joint, lower leg 719.46 and RUQ pain 789.01 [facility] [address] [facility] [id number] [address] [place] [id number] Mar, Sinusitis 473.9 [facility] [address] [facility] [id number] [address] [place] [id number] Mar, [facility] [address] [facility] [id number] [address] [place] [id number] Mar, [facility] [address] [facility] [id number] [address] [place] [address] Mar, Hematochezia 578.1 [facility] [address] [facility] [id number] [address] [place] [id number] February, Sinusitis 473.9 [facility] [address] [facility] [id number] [address] [place] [phone] February, [facility] [address] [facility] [id number] [address] [place] [id number] Jan, [facility] [address] [facility] [id number] [address] [place] [phone] Jan, [facility] [address] [facility] [id number] [address] [place] [id number] Dec, [facility] [place] [facility] [address] [id number] [address] [place] [address], [place] [address] Dec, [facility] [place] [facility] [address] [id number] [address] [place] [address], [place] [address] Dec, [facility] [place] [facility] [address] [id number] [address] [place] [address], [place] [address] Dec, [facility] [place] [facility] [address] [id number] [address] [place] [address], [place] [address] Dec, [facility] [place] [facility] [address] [id number] [address] [place] [address], [place] [address] Dec, [facility] [place] [facility] [address] [id number] [address] [place] [address], [place] [address] Dec, [facility] [place] [facility] [address] [id number] [address] [place] [address], [place] [address] Dec, [facility] [place] [facility] [address] [id number] [address] [place] [address], [place] [address] Dec, [facility] [place] [facility] [address] [id number] [address] [place] [address], [place] [address] Dec, [facility] [place] [facility] [address] [id number] [address] [place] [address], [place] [address] Dec, [facility] [place] [facility] [address] [id number] [address] [place] [address], [place] [address] Nov, [facility] [place] [facility] [address] [id number] [address] [place] [address], [place] [address] Nov, [facility] [place] [facility] [address] [id number] [address] [place] [address], [place] [address] Nov, [facility] [place] [facility] [address] [id number] [address] [place] [address], [place] [address] Nov, [facility] [place] [facility] [address] [id number] [address] [place] [address], [place] [address] Oct, [facility] [place] [facility] [address] [id number] [address] [place] [address], [place] [address] Oct, [facility] [address] [id number] [address] [place] [address], [place] [address] Oct, [facility] [address] [id number] [address] [place] [address], [place] [address] Oct, [facility] [address] [id number] [address] [place] [address], [place] [address] Oct, [facility] [address] [id number] [address] [place] [address], [place] [address] Oct, [facility] [address] [id number] [address] [place] [address], [place] [address] Sep, [facility] [address] [id number] [address] [place] [address], [place] [address] Sep, [facility] [address] [id number] [address] [place] [address], [place] [address] Sep, [facility] [address] [id number] [address] [place] [address], [place] [address] Sep, [facility] [address] [id number] [address] [place] [address], [place] [address] Sep, [facility] [address] [id number] [address] [place] [address], [place] [address] Sep, [facility] [address] [id number] [address] [place] [address], [place] [address] Sep, [facility] [address] [id number] [address] [place] [address], [place] [address] Aug, [facility] [address] [id number] [address] [place] [address], [place] [address] Aug, [facility] [address] [id number] [address] [place] [address], [place] [address] Aug, [facility] [address] [id number] [address] [place] [address], [place] [address] Aug, [facility] [address] [id number] [address] [place] [address], [place] [address] Aug, [facility] [place] [facility] [address] [id number] [address] [place] [address], [place] [address] Aug, [facility] [place] [facility] [address] [id number] [address] [place] [address], [place] [address] Aug, [facility] [place] [facility] [address] [id number] [address] [place] [address], [place] [address] Aug, [facility] [place] [facility] [address] [id number] [address] [place] [address], [place] [address] Aug, [facility] [place] [facility] [address] [id number] [address] [place] [address], [place] [address] Aug, [facility] [place] [facility] [address] [id number] [address] [place] [address], [place] [address] Aug, [facility] [place] [facility] [address] [id number] [address] [place] [address], [place] [address] Aug, [facility] [place] [facility] [address] [id number] [address] [place] [address], [place] [address] Aug, [facility] [place] [facility] [address] [id number] [address] [place] [address], [place] [address] Aug, [facility] [place] [facility] [address] [id number] [address] [place] [address] Jul, [facility] [place] [facility] [address] [id number] [address] [place] [address] Jul, [facility] [place] [facility] [address] [id number] [address] [place] [address], [place] [address] Jul, [facility] [place] [facility] [address] [id number] [address] [place] [address] Jul, [facility] [place] [facility] [address] [id number] [address] [place] [address] Jun, [facility] [place] [facility] [address] [id number] [address] [place] [id number] 24 Jun, 2013 [facility] [address] [id number] [address] [place] [address], [place] [address] 23 Jun, 2013 [facility] [place] [facility] [address] [id number] [address] [place] [address], [place] [address] 23 Jun, 2013 [facility] [address] [id number] [address] [place] [address], [place] [address] 19 Jun, 2013 [facility] [address] [id number] [address] [place] [address], [place] [address] 19 Jun, 2013 [facility] [address] [id number] [address] [place] [address], [place] [address] 11 Jun, 2013 [facility] [address] [id number] [address] [place] [address], [place] [address] 11 Jun, 2013 [facility] [address] [id number] [address] [place] [address], [place] [address] 11 Jun, 2013 [facility] [address] [id number] [address] [place] [address], [place] [address] 11 Jun, 2013 [facility] [address] [id number] [address] [place] [address], [place] [address] 10 Jun, 2013 [facility] [address] [id number] [address] [place] [address], [place] [address] 10 Jun, 2013 [facility] [address] [id number] [address] [place] [address], [place] [address] 09 Jun, 2013 [facility] [place] [facility] [address] [id number] [address] [place] [address], [place] [address] 09 Jun, 2013 [facility] [place] [facility] [address] [id number] [address] [place] [address], [place] [address] 14 May, 2014 [facility] [place] [facility] [address] [id number] [address] [place] [address], [place] [address] 14 May, 2014 [facility] [place] [facility] [address] [id number] [address] [place] [address], [place] [address] 13 May, 2014 [facility] [place] [facility] [address] [id number] [facility] [place] [address] May, [facility] [address] [id number] [facility] [place] [address] May, [facility] [place] [facility] [address] [id number] [facility] [place] [address] May, [facility] [address] [id number] [facility] [place] [address] Apr, [facility] [address] [id number] [facility] [place] [address] Apr, [facility] [address] [id number] [address] [place] [address], [place] [address] Apr, [facility] [address] [id number] [address] [place] [address], [place] [address] Apr, [facility] [address] [id number] [address] [place] [address], [place] [address] Apr, [facility] [address] [id number] [address] [place] [address], [place] [address] Apr, [facility] [address] [id number] [address] [place] [address], [place] [address] Apr, [facility] [address] [id number] [address] [place] [address], [place] [address] Apr, [facility] [place] [facility] [address] [id number] [address] [place] [address], [place] [address] Apr, [facility] [address] [id number] [address] [place] [address], [place] [address] Apr, [facility] [place] [facility] [address] [id number] [address] [place] [address], [place] [address] Apr, [facility] [place] [facility] [address] [id number] [address] [place] [address], [place] [address] Mar, [facility] [place] [facility] [address] [id number] [address] [place] [address], [place] [address] Mar, [facility] [address] [id number] [address] [place] [address], [place] [address] Mar, [facility] [address] [id number] [address] [place] [address], [place] [address] Mar, [facility] [address] [id number] [address] [place] [address], [place] [address] February, [facility] [address] [id number] [address] [place] [address], [place] [address] February, [facility] [address] [id number] [address] [place] [address], [place] [address] Jan, [facility] [address] [id number] [address] [place] [address], [place] [address] Jan, [address] [id number] Jan, [facility] [address] [id number] [address] [place] [address], [place] [address] Jan, [facility] [address] [id number] [address] [place] [address], [place] [address] Jan, [facility] [address] [id number] [address] [place] [address], [place] [address] Jan, [facility] [address] [id number] [address] [place] [address], [place] [address] Jan, [facility] [address] [id number] [address] [place] [address], [place] [address] Jan, [facility] [address] [id number] [address] [place] [address], [place] [address] Jan, [facility] [address] [id number] [address] [place] [address], [place] [address] Jan, [facility] [address] [id number] [address] [place] [address], [place] [address] Jan, [facility] [address] [id number] [address] [place] [address], [place] [address] Jan, [facility] [place] [facility] [address] [id number] [facility] [address] Jan, [facility] [place] [facility] [address] [id number] [address] [place] [address], [place] [address] Jan, [facility] [place] [facility] [address] [id number] [address] [place] [address], [place] [address] Jan, [facility] [place] [facility] [address] [id number] [address] [place] [address], [place] [address] Jan, [facility] [place] [facility] [address] [id number] [address] [place] [address], [place] [address] Jan, [facility] [place] [facility] [address] [id number] [address] [place] [address], [place] [address] Dec, [facility] [place] [facility] [address] [id number] [address] [place] [address], [place] [address] Dec, [facility] [place] [facility] [address] [id number] [address] [place] [address], [place] [address] Dec, [facility] [place] [facility] [address] [id number] [address] [place] [address], [place] [address] Dec, [facility] [place] [facility] [address] [id number] [address] [place] [address], [place] [address] Dec, [facility] [place] [facility] [address] [id number] [address] [place] [address], [place] [address] Dec, [facility] [place] [facility] [address] [id number] [address] [place] [address], [place] [address] Dec, [facility] [place] [facility] [address] [id number] [address] [place] [address], [place] [address] Nov, [facility] [place] [facility] [address] [id number] [address] [place] [address], [place] [address] Nov, [facility] [place] [facility] [address] [id number] [address] [place] [address], [place] [address] Nov, [facility] [place] [facility] [address] [id number] [address] [place] [address], [place] [address] Nov, [facility] [address] [id number] [address] [place] [address], [place] [address] Nov, [facility] [address] [id number] [address] [place] [address], [place] [address] Nov, [facility] [address] [id number] [address] [place] [address], [place] [address] Nov, [facility] [address] [id number] [address] [place] [address], [place] [address] Oct, [facility] [address] [id number] [address] [place] [address], [place] [address] Oct, [facility] [address] [id number] [address] [place] [address], [place] [address] Sep, [facility] [address] [id number] [address] [place] [address], [place] [address] Sep, [facility] [address] [id number] [address] [place] [address], [place] [address] Sep, [facility] [address] [id number] [address] [place] [address], [place] [address] Sep, [facility] [address] [id number] [address] [place] [address], [place] [address] Sep, [facility] [address] [id number] [address] [place] [address], [place] [address] Sep, [facility] [address] [id number] [address] [place] [address], [place] [address] Sep, [facility] [address] [id number] [address] [place] [address], [place] [address] Sep, [facility] [address] [id number] [address] [place] [address], [place] [address] Sep, [facility] [address] [id number] [address] [place] [address], [place] [address] Sep, [facility] [address] [id number] [address] [place] [id number] Aug, [facility] [address] [id number] [address] [place] [id number] Aug, [facility] [address] [id number] [address] [place] [id number] Aug, [facility] [address] [id number] [address] [place] [id number] Aug, [facility] [address] [id number] [address] [place] [id number] Aug, [facility] [address] [id number] [address] [place] [id number] Jul, [facility] [address] [id number] [address] [place] [id number] Jul, [facility] [address] [id number] [address] [place] [id number] Jul, [facility] [address] [id number] [address] [place] [id number] Jul, IMMUNIZATIONS No Known Immunizations SOCIAL HISTORY Never Assessed REASON FOR VISIT PLAN OF CARE VITAL SIGNS Height 62 in 2014-06-18 Weight 287.11 lbs 2014-06-18 Temperature 97.9 degrees Fahrenheit 2014-06-18 Heart Rate 82 bpm 2014-06-18 Respiratory Rate 20 2014-06-18 Blood pressure systolic 130 mmHg 2014-06-18 Blood pressure diastolic 86 mmHg 2014-06-18 MEDICATIONS Unknown Medications RESULTS No Results PROCEDURES Procedure Date Ordered Result Body Site COMPLETE CBC W/AUTO DIFF WBC Jun 18, 2014 ASSAY OF LIPASE Jun 18, 2014 VENIPUNCT, ROUTINE* Jun 18, 2014 INSTRUCTIONS MEDICATIONS ADMINISTERED No Known Medications [...] Surgical History appendectomy 1959 Surgical History hysterectomy 1983 Surgical History orthopeadic surgery 2 right knee replace ment 2004- 2006 Surgical History prior surgery diviated septum 1989 Surgical History Colon resection 2014 Surgical History carpal tunnel release 2015 Surgical History Right Rotator Cuff Repair 05/18/2017 Surgical History Rt foot surgery to remove heel spur 03/22 Surgical History Colon resection 05/16/2018 Hospitalization History Surgeries
--- OUTSIDE RECORDS SUMMARY | 2020-03-16 11:43 | XMS REPORT ---
Author Author Swathi Benavides Organization [facility] Address [address] [place] [address] Care Team Providers Care Client Experience Administrator Name Role Phone WIL Benavides Unavailable PROBLEMS Type Condition ICD9-CM Code BXR40-HA Code Onset Dates Condition S tatus SNOMED Code Problem Sensorineural hearing loss of right ear H90.41 Active 34774286 Problem Obstructive sleep apnea on CPAP G47.33 Active 13288570 Problem Periodic limb movement sleep disorder G47.61 Active 439681099 Problem Iron deficiency anemia due to chronic blood loss D 50.0 Active 28052638 Problem MACHUCA (nonalcoholic steatohepatitis) K75.81 Active 865204686 Problem Vitamin B12 deficiency E53.8 Active 024837674 Problem Chronic diarrhea K52.9 Active 236 324023 Problem Vitamin D deficiency E55.9 Active 65210166 Problem BMI 50.0-59.9, adult Z68.43 Active 483527463 Problem Fatty liver K76.0 Active 81821952 7 Problem Anxiety F41.9 Active 02881401 Problem Major depressive disorder, recurrent episode, moderate F33.1 Active 041982233 Problem Chronic tension-type headache, intractable G44.221 Active 532198446 Problem Right upper quadrant pain R10.11 Acti ve 40541993 Problem Frequent falls R29.6 Active 39734 2001 Problem Crohn's disease of both small and large intestin e with complication K50.819 Active 20385182 Problem Type 2 diabetes mellitus with other specified complication E11.69 Active 841447370635 Problem Hyperlipidemia, unspecified E78.5 Ac tive 41445091 Problem Mixed stress and urge urinary incontinence N39.46 Active 593278629 Problem Sinusitis chronic, frontal J32.1 Act katlyn 95218580 Problem Seasonal allergies J30.2 Active 4 42335757 Problem Other chronic pain G89.29 Active 8 3148793 Problem Hyperlipidemia E78.5 Active 21086 004 Problem Bilateral primary osteoarthritis of knee M17.0 Active 815429893 Problem Essential hypertension I10 Active 20080958 Problem Acquired hypothyroidism E03.9 Active 099880882 Problem History of hysterectomy for benign disease Z90.710 Active 934764279 Problem Morbid (severe) obesity due to excess calories E66 .01 Active 207326674 Problem Other cirrhosis of liver K74.69 Activ e 38645356 Problem Portal hypertension K76.6 Active 88541985 ALLERGIES No Information ENCOUNTERS Encounter Location Date Diagnosis [place] [address] [address] [facility] [id number] [address] [place] [address] 30 Dec, [id number] [place] [address] Dec, Fever, unspecified fever cau se R50.9 [place] [address] [address] [facility] [id number] [address] [place] [address] Dec, Cough R05 and Fever, unspeci fied fever cause R50.9 [place] [address] [address] [facility] [id number] [address] [place] [address] Dec, [place] [address] [address] [facility] [id number] [address] [place] [address] Dec, [place] [address] [address] [facility] [id number] [address] [place] [address] Dec, [place] [address] [address] [facility] [id number] [address] [place] [address] Nov, MACHUCA (nonalcoholic steatohep atitis) K75.81 ; BMI 50.0-59.9, adult Z68.43 and Type 2 diabetes mellitus with other specified complication E11.69 [place] [address] [facility] [id number] [address] [place] [address] Oct, Morbid (severe) obesity due to excess calories E66.01 and Type 2 diabetes mellitus with other specified complication E11.69 [place] [address] [facility] [id number] [address] [place] [address] Oct, Essential hypertension I10 ; BMI 50.0-59.9, adult Z68.43 and Morbid (severe) obesity due to excess calories E66.01 [place] [address] [address] [place] [id number] [address] [place] [address] Oct, Encounter for Medicare [facility] [...] E78.5 and Other cirrhosis of liver K74.69 [place] [address] [address] [place] [id number] [address] [place] [address] Oct, [place] [address] [address] [place] [id number] [address] [place] [address] Sep, Major depressive disorder, r ecurrent episode, moderate F33.1 ; Vitamin B12 deficiency E53.8 ; BMI 50.0-59.9, adult Z68.43 and Essential hypertension I10 [place] [address] [address] [facility] [id number] [address] [place] [address] Sep, Breast pain, right N64.[address] [id number] [address] Sep, Breast pain, right N64.[address] 340[id number] [address] Sep, Breast pain, right N64.[address] [id number] [address] Sep, Breast pain, right N64.4 [place] [address] [address] [facility] [id number] [address] [place] [address] Aug, [place] [address] [address] [facility] [id number] [address] [place] [address] Aug, Major depressive disorder, r ecurrent episode, moderate F33.1 ; BMI 50.0-59.9, adult Z68.43 ; Type 2 diabetes mellitus without complication E11.9 ; Breast pain, right N64.4 and Encounter for screening mammogram for breast cancer Z12.31 [facility] [address] [id number] [place] [address] 13 Jun, 2019 Pneumonia of right middle lo be due to infectious organism J18.1 and Cough R05 [facility] [address] [id number] [address] 09 Jun, 2019 Acute nasopharyngitis J00 [place] [address] [place] [id number] [address] [place] [address] May, Iron deficiency anemia due t o [...] Major depressive disorder, recurrent episode, moderate F33.1 [place] [address] [place] [id number] [address] [place] [address] May, Hyperlipidemia, unspecified E78.5 ; Other cirrhosis of liver K74.69 and Iron deficiency anemia due to chronic blood loss D50.0 [facility] [address] [place] [id number] [address] [place] [address] February, [facility] [address] [id number] [address] February, Acute recurrent pansinusitis J01.41 [facility] [address] [id number] [address] February, Acute maxillary sinusitis, r ecurrence not specified J01.00 [place] [address] [facility] [id number] [address] [place] [address] Jan, Bilateral primary osteoarthr itis of knee M17.0 ; Morbid obesity E66.01 ; Viral syndrome B34.9 and Atrial dilatation, left I51.7 [place] [address] [address] Jan, [place] [address] [address] Dec, Trigeminy R00.8 [place] [address] [address] Dec, Essential hypertension I10 ; Morbid obesity E66.01 ; Low back pain M54.5 ; Other chronic pain G89.29 and Pain in right knee M25.561 [place] [address] [address] Nov, [place] [address] [address] Oct, Palpitations R00.2 [place] [address] [address] Oct, Encounter for Medicare ann l wellness [...] small and large intestine with complication K50.819 [place] [address] [address] [place] [id number] [place] [address] Oct, [facility] [address] [place] [id number] [address] [place] [address] Oct, Crohn's disease of both smal l and large intestine with complication K50.819 [facility] [address] [place] [id number] [address] [place] [address] Jul, Sinusitis chronic, frontal J 32.1 ; Acute mucoid otitis media of both ears H65.113 ; Seasonal allergies J30.2 and BMI 50.0-59.9, adult Z68.43 [facility] [address] [address] 02 Jul, 2018 Essential hypertension I10 ; Type 2 diabetes mellitus with other specified complication E11.69 ; BMI 50.0-59.9, adult Z68.43 ; Mixed stress and urge urinary incontinence N39.46 and Mid back pain on right side M54.9 [place] [address] [address] 26 Jun, 2018 Iron deficiency anemia due t o chronic blood loss D50.0 ; Hyperlipidemia E78.5 ; Type 2 diabetes mellitus with other specified complication E11.69 ; Vitamin B12 deficiency E53.8 and Vitamin D deficiency E55.9 [facility] [address] [place] [id number] [address] [place] [address] 14 Jun, 2018 Cough R05 and BMI 50.0-59.9, adult Z68.43 [place] [address] [address] Jun, [facility] [address] [place] [id number] [address] [place] [address] May, Iron deficiency anemia due t o chronic blood loss D50.0 ; Chronic diarrhea K52.9 ; Essential hypertension I10 ; Type 2 diabetes mellitus with other specified complication E11.69 ; Vitamin D deficiency E55.9 ; Colon stricture K56.699 ; Vitamin B12 deficiency E53.8 ; Hyperlipidemia E78.5 and BMI 50.0-59.9, adult Z68.43 [facility] [address] [place] [id number] [address] [place] [address] May, [facility] [address] [place] [id number] [address] [place] [address] Apr, Nonhealing wound of heel S91 .309A and Body mass index (BMI) of 50- 59.9 in adult Z68.43 [place] [address] [address] Mar, [facility] [address] [address] Mar, BMI 50.0-59.9, adult Z68.43 ; Flank pain R10.9 and Weight loss counseling, encounter for Z71.3 [place] [address] [address] [place] [id number] [address] [place] [address] February, [place] [address] [address] Jan, [place] [address] [address] Jan, [facility] [address] [address] Jan, Diarrhea due to staphylococc us A04.8 and Diarrhea, unspecified type R19.7 [place] [address] [address] Jan, Acquired hypothyroidism E03. 9 ; Type 2 diabetes mellitus with other specified complication E11.69 ; Hyperlipidemia E78.5 ; Essential hypertension I10 ; Major depressive disorder, recurrent episode, moderate F33.1 and Vitamin D deficiency E55.9 [place] [address] [address] [place] [id number] [address] [place] [address] Jan, Type 2 diabetes mellitus wit h other specified complication E11.69 ; Hyperlipidemia E78.5 ; Essential hypertension I10 ; Acquired hypothyroidism E03.9 ; Major depressive disorder, recurrent episode, moderate F33.1 ; Vitamin D deficiency E55.9 ; Sinus congestion R09.81 and BMI 50.0-59.9, adult Z68.43 [place] [address] [address] [place] [id number] [address] [place] [address] Dec, [place] [address] [place] [address] Sep, Encounter for immunization Z 23 [facility] [address] [address] Sep, [facility] [address] [address] Sep, Vitamin B12 deficiency E53.8 [facility] [address] [address] Aug, [place] [address] [address] Aug, BMI 60.0-69.9, adult Z68.44 and Acute non-recurrent maxillary sinusitis J01.00 [place] [address] [address] Aug, [place] [address] [address] Aug, Medicare annual wellness vis it, initial Z00.00 ; Screening for breast cancer Z12.31 ; BMI 40.0-44.9, adult Z68.41 and Acquired hypothyroidism E03.9 [place] [address] [address] Jul, Actinic keratosis L57.0 [place] [address] [address] Jul, Actinic keratosis L57.0 [place] [address] [address] Jul, Type 2 diabetes mellitus wit h other specified complication E11.69 ; Actinic keratosis L57.0 and Hypothyroidism, unspecified E03.9 [place] [address] [place] [id number] [address] [place] [address] Jul, [place] [address] [address] Jul, [place] [address] [place] [id number] [address] [place] [address] Jul, Vitamin B12 deficiency E53.8 [place] [address] [address] Jun, Acquired hypothyroidism E03. 9 and Chronic tension-type headache, intractable G44.221 [place] [address] [address] Jun, Back muscle spasm M62.830 an d BMI 50.0-59.9, adult Z68.43 [place] [address] [address] Jun, Vitamin B12 deficiency E53.8 [place] [address] [address] Jun, Crohn's disease of both smal l and large intestine with complication K50.819 [place] [address] [address] Jun, Crohn's disease of both smal l and large intestine with complication K50.819 [place] [address] [address] May, Hyperlipidemia E78.5 ; Anxie ty F41.9 and Essential hypertension I10 [place] [address] [address] May, [place] [address] [address] May, Encounter for immunization Z 23 and Vitamin B12 deficiency E53.8 [place] [address] [address] May, [place] [address] [address] Apr, [place] [address] [address] Apr, [place] [address] [id number] [address] [place] [address] Apr, Crohn's disease of both smal l and large intestine with complication K50.819 [place] [address] [id number] [address] [place] [address] Apr, Vitamin B12 deficiency E53.8 [place] [address] [id number] [address] [place] [address] Apr, Crohn's disease of both smal l and large intestine with complication K50.819 and Acute pain of right shoulder M25.511 [place] [address] [id number] [address] [place] [address] Mar, Type 2 diabetes mellitus wit hout complication E11.9 ; Frequent falls R29.6 and Other chest pain R07.89 [place] [address] [address] [facility] [id number] [address] [place] [address] Mar, [place] [address] [id number] [address] [place] [address] Mar, [place] [address] [facility] [id number] [address] [place] [address] Mar, Type 2 diabetes mellitus wit hout complication E11.9 and Blurry vision, bilateral H53.8 [place] [address] [id number] [address] [place] [address] Mar, Vitamin B12 deficiency E53.8 [place] [address] [id number] [address] [place] [address] Mar, Crohn's disease of both smal l and large intestine with complication K50.819 [place] [address] [id number] [address] [place] [address] February, Vitamin B12 deficiency E53.8 [place] [address] [facility] [id number] [address] [place] [address] Jan, Crohn's disease of both smal l and large intestine with complication K50.819 [facility] [address] [facility] [id number] [address] [place] [address] Jan, Crohn's disease of both smal l and large intestine with complication K50.819 [facility] [address] [facility] [id number] [address] [place] [address] Jan, Dark brown-colored urine R82 .99 and Acute suppurative otitis media of right ear without spontaneous rupture of tympanic membrane, recurrence not specified H66.001 [facility] [address] [facility] [id number] [address] [place] [address] Jan, Encounter for immunization Z 23 [place] [address] [place] [id number] [address] [place] [address] Dec, Crohn's disease of both smal l and large intestine with complication K50.819 and Eustachian tube dysfunction, right H69.81 [facility] [id number] [place] [address] Dec, [facility] [address] [place] [id number] [address] [place] [address] Dec, Contusion of right knee, ini tial encounter S80.01XA [place] [address] [place] [id number] [address] [place] [address] Dec, [place] [address] [place] [id number] [address] [place] [address] Dec, Acute pain of right knee M25 .561 [facility] [address] [place] [id number] [address] [place] [address] Dec, Iron deficiency anemia due t o chronic blood loss D50.0 [place] [address] [place] [id number] [address] [place] [address] Dec, Hyperlipidemia E78.5 ; Type 2 diabetes mellitus without complication E11.9 ; Vitamin B12 deficiency E53.8 ; Essential hypertension I10 ; Obstructive sleep apnea on CPAP G47.33 and Periodic limb movement sleep disorder G47.61 [place] [address] [facility] [id number] [address] [place] [address] Nov, Type 2 diabetes mellitus wit hout complication E11.9 ; Vitamin B12 deficiency E53.8 ; Hyperlipidemia E78.5 ; Essential hypertension I10 ; Obstructive sleep apnea on CPAP G47.33 ; Periodic limb movement sleep disorder G47.61 ; Anxiety F41.9 ; Acquired hypothyroidism E03.9 and Chronic tension-type headache, intractable G44.221 [place] [address] [facility] [id number] [address] [place] [address] Nov, Crohn's disease of both smal l and large intestine with complication K50.819 [place] [address] [place] [id number] [address] [place] [address] Nov, Vitamin B12 deficiency E53.8 [place] [id number] [place] [address] Oct, [place] [id number] [place] [address] Oct, Vitamin B12 deficiency E53.8 [place] [address] [place] [id number] [address] [place] [address] Sep, [place] [address] [place] [id number] [address] [place] [address] Sep, Vitamin B12 deficiency E53.8 [place] [address] [place] [id number] [address] [place] [address] Aug, [place] [address] [place] [id number] [address] [place] [address] 14 Aug, 2016 Vitamin B12 deficiency E53.8 [place] [address] [place] [id number] [address] [place] [address] 10 Aug, 2016 [place] [address] [place] [id number] [address] [place] [address] 24 Jul, 2016 Elevated ALT measurement R74 .0 [place] [address] [place] [id number] [address] [place] [address] Jul, Hematuria R31.9 ; Acute righ t-sided thoracic back pain M54.6 ; Major depressive disorder, recurrent episode, moderate F33.1 and Elevated ALT measurement R74.0 [place] [address] [id number] [address] [place] [address] Jul, [place] [address] [facility] [id number] [address] [place] [address] Jul, Elevated ALT measurement R74 .0 [place] [address] [facility] [id number] [address] [place] [address] Jul, Iron deficiency anemia due t o chronic blood loss D50.0 [place] [address] [facility] [id number] [address] [place] [address] 14 Jul, 2016 Type 2 diabetes mellitus wit hout complication E11.9 ; Acquired hypothyroidism E03.9 ; Iron deficiency anemia due to chronic blood loss D50.0 ; Hyperlipidemia E78.5 and Essential hypertension I10 [place] [address] [facility] [id number] [address] [place] [address] Jun, [place] [address] [facility] [id number] [address] [place] [address] 20 Jun, 2016 Vitamin B12 deficiency E53.8 [place] [address] [facility] [id number] [address] [place] [address] 16 Jun, 2016 Type 2 diabetes mellitus wit hout complication E11.9 ; Acquired hypothyroidism E03.9 ; Iron deficiency anemia due to chronic blood loss D50.0 ; Hyperlipidemia E78.5 ; Essential hypertension I10 ; Chronic tension-type headache, intractable G44.221 ; Pulsatile tinnitus, bilateral H93.13 ; Obstructive sleep apnea on CPAP G47.33 and Major depressive disorder, recurrent episode, moderate F33.1 [place] [address] [facility] [id number] [address] [place] [address] May, Vitamin B12 deficiency E53.8 [place] [address] [facility] [id number] [address] [place] [address] May, [facility] [address] [id number] [address] [place] [address] Apr, Vitamin B12 deficiency E53.8 [facility] [address] [id number] [address] [place] [address] 05 Apr, 2016 [facility] [address] [facility] [id number] [address] [place] [address] Mar, Chronic tension-type headach e, intractable G44.221 and Major depressive disorder, recurrent episode, moderate F33.1 [facility] [address] [facility] [id number] [address] [place] [address] Mar, Vitamin B12 deficiency E53.8 [facility] [address] [facility] [id number] [address] [place] [address] February, [facility] [address] [facility] [id number] [address] [place] [address] February, Vitamin B12 deficiency E53.8 [facility] [address] [facility] [id number] [address] [place] [address] February, [facility] [address] [facility] [id number] [address] [place] [address] Jan, Dysuria R30.0 [facility] [address] [facility] [id number] [address] [place] [address] Jan, Type 2 diabetes mellitus wit hout complication E11.9 and Essential hypertension I10 [facility] [address] [facility] [id number] [address] [place] [address] 15 Jan, 2016 Chronic diarrhea K52.9 [facility] [address] [facility] [id number] [address] [place] [address] 13 Jan, 2016 [facility] [address] [facility] [id number] [address] [place] [phone] 12 Jan, 2016 Chronic diarrhea K52.9 [facility] [address] [facility] [id number] [address] [place] [phone] Jan, [facility] [address] [facility] [id number] [address] [place] [phone] 12 Jan, 2016 Dysuria R30.0 [facility] [address] [facility] [id number] [address] [place] [phone] 07 Jan, 2016 Vitamin B12 deficiency E53.8 [facility] [address] [facility] [id number] [address] [place] [phone] 07 Jan, 2016 Dysuria R30.0 and Iron defic iency anemia due to chronic blood loss D50.0 [facility] [address] [facility] [id number] [address] [place] [phone] 05 Jan, 2016 Dysuria R30.0 [facility] [address] [facility] [id number] [address] [place] [phone] 04 Jan, 2016 [facility] [address] [place] [id number] [address] [place] [phone] 15 Dec, 2015 [facility] [address] [facility] [id number] [place] [id number] 11 Dec, 2015 Iron deficiency anemia due t o chronic blood loss D50.0 [facility] [address] [facility] [id number] [address] [place] [id number] 10 Dec, 2015 Dysuria R30.0 ; Fatigue R53. 83 ; Hyperlipidemia E78.5 and Diarrhea R19.7 [facility] [address] [facility] [id number] [address] [place] [phone] 09 Dec, 2015 [facility] [address] [facility] [id number] [address] [place] [address] 02 Dec, 2015 [facility] [address] [id number] [address] [place] [id number] 10 Nov, 2015 Vitamin B12 deficiency E53.8 [facility] [address] [facility] [id number] [address] [place] [address] Oct, Vitamin B12 deficiency E53.8 [facility] [address] [place] [address] 12 Oct, 2015 [facility] [address] [facility] [id number] [address] [place] [id number] 09 Oct, 2015 Headache R51 [facility] [address] [id number] [address] [place] [id number] 07 Oct, 2015 Essential hypertension I10 ; Type 2 diabetes mellitus without complication E11.9 ; Vitamin B12 deficiency E53.8 ; Acquired hypothyroidism E03.9 ; Iron deficiency anemia due to chronic blood loss D50.0 and Hyperlipidemia E78.5 [facility] [address] [facility] [id number] [address] [place] [id number] 17 Sep, 2015 Essential hypertension I10 ; Vitamin B12 deficiency E53.8 ; Iron deficiency anemia due to chronic blood loss D50.0 ; Type 2 diabetes mellitus without complication E11.9 ; Hyperlipidemia E78.5 and Acquired hypothyroidism E03.9 [facility] [id number] [place] [id number] 08 Sep, 2015 [facility] [id number] [place] [address] Sep, [facility] [address] [id number] [address] [place] [address] Jul, [facility] [address] [id number] [address] [place] [address] Jun, [facility] [address] [id number] [address] [place] [id number] 18 Jun, 2015 [facility] [address] [id number] [address] [place] [id number] 15 Jun, 2015 Hyperlipidemia 272.4 ; Iron deficiency anemia 280.9 ; Hypothyroidism 244.9 ; Diabetes mellitus without mention of complication, type II or unspecified type, not stated as uncontrolled 250.00 and Hypertension 401.9 [facility] [address] [id number] [address] [place] [id number] 04 Jun, 2015 [facility] [address] [id number] [address] [place] [address] Jun, [facility] [address] [facility] [id number] [address] [place] [id number] May, Hyperlipidemia 272.4 [facility] [address] [facility] [id number] [address] [place] [address] May, [facility] [address] [facility] [id number] [address] [place] [address] May, [facility] [address] [facility] [id number] [address] [place] [address] Apr, Diabetes mellitus without me ntion of complication, type II or unspecified type, not stated as uncontrolled 250.00 ; Hypothyroidism 244.9 ; Hyperlipidemia 272.4 ; Pain in joint, lower leg 719.46 and RUQ pain 789.01 [facility] [address] [facility] [id number] [address] [place] [address] Mar, Sinusitis 473.9 [facility] [address] [facility] [id number] [address] [place] [address] Mar, [facility] [address] [facility] [id number] [address] [place] [id number] Mar, [facility] [address] [facility] [id number] [address] [place] [address] Mar, Hematochezia 578.1 [facility] [address] [facility] [id number] [address] [place] [address] February, Sinusitis 473.9 [facility] [address] [facility] [id number] [address] [place] [phone] February, [facility] [address] [facility] [id number] [address] [place] [address] Jan, [facility] [address] [facility] [id number] [address] [place] [id number] Jan, [facility] [address] [facility] [id number] [address] [place] [address] Dec, [facility] [place] [facility] [address] [id number] [address] [place] [address], [place] [address] Dec, [facility] [place] [facility] [address] [id number] [address] [place] [address], [place] [address] Dec, [facility] [place] [facility] [address] [id number] [address] [place] [address], [place] [address] Dec, [facility] [place] [facility] [address] [id number] [address] [place] [address], [place] [address] Dec, [facility] [place] [facility] [address] [id number] [address] [place] [address], [place] [address] Dec, [facility] [place] [facility] [address] [id number] [address] [place] [address], [place] [address] Dec, [facility] [place] [facility] [address] [id number] [address] [place] [address], [place] [address] Dec, [facility] [place] [facility] [address] [id number] [address] [place] [address], [place] [address] Dec, [facility] [place] [facility] [address] [id number] [address] [place] [address], [place] [address] Dec, [facility] [place] [facility] [address] [id number] [address] [place] [address], [place] [address] Dec, [facility] [place] [facility] [address] [id number] [address] [place] [address], [place] [address] Nov, [facility] [place] [facility] [address] [id number] [address] [place] [address], [place] [address] Nov, [facility] [place] [facility] [address] [id number] [address] [place] [address], [place] [address] Nov, [facility] [place] [facility] [address] [id number] [address] [place] [address], [place] [address] Nov, [facility] [place] [facility] [address] [id number] [address] [place] [address], [place] [address] Oct, [facility] [place] [facility] [address] [id number] [address] [place] [address], [place] [address] Oct, [facility] [address] [id number] [address] [place] [address], [place] [address] Oct, [facility] [address] [id number] [address] [place] [address], [place] [address] Oct, [facility] [address] [id number] [address] [place] [address], [place] [address] Oct, [facility] [address] [id number] [address] [place] [address], [place] [address] Oct, [facility] [address] [id number] [address] [place] [address], [place] [address] Sep, [facility] [address] [id number] [address] [place] [address], [place] [address] Sep, [facility] [address] [id number] [address] [place] [address], [place] [address] Sep, [facility] [address] [id number] [address] [place] [address], [place] [address] Sep, [facility] [address] [id number] [address] [place] [address], [place] [address] Sep, [facility] [address] [id number] [address] [place] [address], [place] [address] Sep, [facility] [address] [id number] [address] [place] [address], [place] [address] Sep, [facility] [address] [id number] [address] [place] [address], [place] [address] Aug, [facility] [address] [id number] [address] [place] [address], [place] [address] Aug, [facility] [address] [id number] [address] [place] [address], [place] [address] Aug, [facility] [address] [id number] [address] [place] [address], [place] [address] Aug, [facility] [address] [id number] [address] [place] [address], [place] [address] Aug, [facility] [place] [facility] [address] [id number] [address] [place] [address], [place] [address] Aug, [facility] [place] [facility] [address] [id number] [address] [place] [address], [place] [address] Aug, [facility] [place] [facility] [address] [id number] [address] [place] [address], [place] [address] Aug, [facility] [place] [facility] [address] [id number] [address] [place] [address], [place] [address] Aug, [facility] [place] [facility] [address] [id number] [address] [place] [address], [place] [address] Aug, [facility] [place] [facility] [address] [id number] [address] [place] [address], [place] [address] Aug, [facility] [place] [facility] [address] [id number] [address] [place] [address], [place] [address] Aug, [facility] [place] [facility] [address] [id number] [address] [place] [address], [place] [address] Aug, [facility] [place] [facility] [address] [id number] [address] [place] [address], [place] [address] Aug, [facility] [place] [facility] [address] [id number] [address] [place] [address] Jul, [facility] [place] [facility] [address] [id number] [address] [place] [address] Jul, [facility] [place] [facility] [address] [id number] [address] [place] [address], [place] [address] Jul, [facility] [place] [facility] [address] [id number] [address] [place] [address] Jul, [facility] [place] [facility] [address] [id number] [address] [place] [address] Jun, [facility] [place] [facility] [address] [id number] [address] [place] [address] 24 Jun, 2013 [facility] [address] [id number] [address] [place] [address], [place] [address] 23 Jun, 2013 [facility] [place] [facility] [address] [id number] [address] [place] [address], [place] [address] 23 Jun, 2013 [facility] [address] [id number] [address] [place] [address], [place] [address] 19 Jun, 2013 [facility] [address] [id number] [address] [place] [address], [place] [address] 19 Jun, 2013 [facility] [address] [id number] [address] [place] [address], [place] [address] 11 Jun, 2013 [facility] [address] [id number] [address] [place] [address], [place] [address] 11 Jun, 2013 [facility] [address] [id number] [address] [place] [address], [place] [address] 11 Jun, 2013 [facility] [address] [id number] [address] [place] [address], [place] [address] 11 Jun, 2013 [facility] [address] [id number] [address] [place] [address], [place] [address] 10 Jun, 2013 [facility] [address] [id number] [address] [place] [address], [place] [address] 10 Jun, 2013 [facility] [address] [id number] [address] [place] [address], [place] [address] 09 Jun, 2013 [facility] [place] [facility] [address] [id number] [address] [place] [address], [place] [address] 09 Jun, 2013 [facility] [place] [facility] [address] [id number] [address] [place] [address], [place] [address] 14 May, 2014 [facility] [place] [facility] [address] [id number] [address] [place] [address], [place] [address] 14 May, 2014 [facility] [place] [facility] [address] [id number] [address] [place] [address], [place] [address] 13 May, 2014 [facility] [place] [facility] [address] [id number] [facility] [place] [address] May, [facility] [address] [id number] [facility] [place] [address] May, [facility] [place] [facility] [address] [id number] [facility] [place] [address] May, [facility] [address] [id number] [facility] [place] [address] Apr, [facility] [address] [id number] [facility] [place] [address] Apr, [facility] [address] [id number] [address] [place] [address], [place] [address] Apr, [facility] [address] [id number] [address] [place] [address], [place] [address] Apr, [facility] [address] [id number] [address] [place] [address], [place] [address] Apr, [facility] [address] [id number] [address] [place] [address], [place] [address] Apr, [facility] [address] [id number] [address] [place] [address], [place] [address] Apr, [facility] [address] [id number] [address] [place] [address], [place] [address] Apr, [facility] [place] [facility] [address] [id number] [address] [place] [address], [place] [address] Apr, [facility] [address] [id number] [address] [place] [address], [place] [address] Apr, [facility] [place] [facility] [address] [id number] [address] [place] [address], [place] [address] Apr, [facility] [place] [facility] [address] [id number] [address] [place] [address], [place] [address] Mar, [facility] [place] [facility] [address] [id number] [address] [place] [address], [place] [address] Mar, [facility] [address] [id number] [address] [place] [address], [place] [address] Mar, [facility] [address] [id number] [address] [place] [address], [place] [address] Mar, [facility] [address] [id number] [address] [place] [address], [place] [address] February, [facility] [address] [id number] [address] [place] [address], [place] [address] February, [facility] [address] [id number] [address] [place] [address], [place] [address] Jan, [facility] [address] [id number] [address] [place] [address], [place] [address] Jan, [address] [id number] Jan, [facility] [address] [id number] [address] [place] [address], [place] [address] Jan, [facility] [address] [id number] [address] [place] [address], [place] [address] Jan, [facility] [address] [id number] [address] [place] [address], [place] [address] Jan, [facility] [address] [id number] [address] [place] [address], [place] [address] Jan, [facility] [address] [id number] [address] [place] [address], [place] [address] Jan, [facility] [address] [id number] [address] [place] [address], [place] [address] Jan, [facility] [address] [id number] [address] [place] [address], [place] [address] Jan, [facility] [address] [id number] [address] [place] [address], [place] [address] Jan, [facility] [address] [id number] [address] [place] [address], [place] [address] Jan, [facility] [place] [facility] [address] [id number] [facility] [place] [address] Jan, [facility] [place] [facility] [address] [id number] [address] [place] [address], [place] [address] Jan, [facility] [place] [facility] [address] [id number] [address] [place] [address], [place] [address] Jan, [facility] [place] [facility] [address] [id number] [address] [place] [address], [place] [address] Jan, [facility] [place] [facility] [address] [id number] [address] [place] [address], [place] [address] Jan, [facility] [place] [facility] [address] [id number] [address] [place] [address], [place] [address] Dec, [facility] [place] [facility] [address] [id number] [address] [place] [address], [place] [address] Dec, [facility] [place] [facility] [address] [id number] [address] [place] [address], [place] [address] Dec, [facility] [place] [facility] [address] [id number] [address] [place] [address], [place] [address] Dec, [facility] [place] [facility] [address] [id number] [address] [place] [address], [place] [address] Dec, [facility] [place] [facility] [address] [id number] [address] [place] [address], [place] [address] Dec, [facility] [place] [facility] [address] [id number] [address] [place] [address], [place] [address] Dec, [facility] [place] [facility] [address] [id number] [address] [place] [address], [place] [address] Nov, [facility] [place] [facility] [address] [id number] [address] [place] [address], [place] [address] Nov, [facility] [place] [facility] [address] [id number] [address] [place] [address], [place] [address] Nov, [facility] [place] [facility] [address] [id number] [address] [place] [address], [place] [address] Nov, [facility] [address] [id number] [address] [place] [address], [place] [address] Nov, [facility] [address] [id number] [address] [place] [address], [place] [address] Nov, [facility] [address] [id number] [address] [place] [address], [place] [address] Nov, [facility] [address] [id number] [address] [place] [address], [place] [address] Oct, [facility] [address] [id number] [address] [place] [address], [place] [address] Oct, [facility] [address] [id number] [address] [place] [address], [place] [address] Sep, [facility] [address] [id number] [address] [place] [address], [place] [address] Sep, [facility] [address] [id number] [address] [place] [address], [place] [address] Sep, [facility] [address] [id number] [address] [place] [address], [place] [address] Sep, [facility] [address] [id number] [address] [place] [address], [place] [address] Sep, [facility] [address] [id number] [address] [place] [address], [place] [address] Sep, [facility] [address] [id number] [address] [place] [address], [place] [phone] Sep, [facility] [address] [id number] [address] [place] [address], [place] [id number] Sep, [facility] [address] [id number] [address] [place] [address], [place] [address] Sep, [facility] [address] [id number] [address] [place] [address], [place] [address] Sep, [facility] [address] [id number] [address] [place] [id number] Aug, [facility] [address] [id number] [address] [place] [phone] Aug, [facility] [address] [id number] [address] [place] [id number] Aug, [facility] [address] [id number] [address] [place] [phone] Aug, [facility] [address] [id number] [address] [place] [id number] Aug, [facility] [address] [id number] [address] [place] [id number] Jul, [facility] [address] [id number] [address] [place] [id number] Jul, [facility] [address] [id number] [address] [place] [id number] Jul, [facility] [address] [id number] [address] [place] [id number] Jul, IMMUNIZATIONS No Known Immunizations SOCIAL HISTORY Never Assessed REASON FOR VISIT PLAN OF CARE VITAL SIGNS Blood pressure systolic 132 mmHg 2014-07-03 Blood pressure diastolic 70 mmHg 2014-07-03 MEDICATIONS Unknown Medications RESULTS No Results PROCEDURES Procedure Date Ordered Result Body Site BLOOD PRESSURE, MEASURED Jul 03, 2014 INSTRUCTIONS MEDICATIONS ADMINISTERED No Known Medications [...]
--- OUTSIDE RECORDS SUMMARY | 2020-03-16 11:43 | XMS REPORT ---
Author Author Swathi Benavides Organization [facility] Address [address] [place] [address] Care Team Providers Care Quebracho Tanner Name Role Phone WIL Benavides Unavailable PROBLEMS Type Condition ICD9-CM Code ZMI85-BD Code Onset Dates Condition S tatus SNOMED Code Problem Sensorineural hearing loss of right ear H90.41 Active 70936104 Problem Obstructive sleep apnea on CPAP G47.33 Active 01333842 Problem Periodic limb movement sleep disorder G47.61 Active 633999529 Problem Iron deficiency anemia due to chronic blood loss D 50.0 Active 18389624 Problem MACHUCA (nonalcoholic steatohepatitis) K75.81 Active 097115106 Problem Vitamin B12 deficiency E53.8 Active 610557097 Problem Chronic diarrhea K52.9 Active 236 217626 Problem Vitamin D deficiency E55.9 Active 15703466 Problem BMI 50.0-59.9, adult Z68.43 Active 838692974 Problem Fatty liver K76.0 Active 93373861 7 Problem Anxiety F41.9 Active 04624849 Problem Major depressive disorder, recurrent episode, moderate F33.1 Active 189848848 Problem Chronic tension-type headache, intractable G44.221 Active 930402350 Problem Right upper quadrant pain R10.11 Acti ve 13957993 Problem Frequent falls R29.6 Active 53979 2001 Problem Crohn's disease of both small and large intestin e with complication K50.819 Active 96800046 Problem Type 2 diabetes mellitus with other specified complication E11.69 Active 139135223429 Problem Hyperlipidemia, unspecified E78.5 Ac tive 94971287 Problem Mixed stress and urge urinary incontinence N39.46 Active 085891116 Problem Sinusitis chronic, frontal J32.1 Act katlyn 33169387 Problem Seasonal allergies J30.2 Active 4 81918137 Problem Other chronic pain G89.29 Active 8 5782466 Problem Hyperlipidemia E78.5 Active 33134 004 Problem Bilateral primary osteoarthritis of knee M17.0 Active 207118000 Problem Essential hypertension I10 Active 37054938 Problem Acquired hypothyroidism E03.9 Active 581839914 Problem History of hysterectomy for benign disease Z90.710 Active 011922856 Problem Morbid (severe) obesity due to excess calories E66 .01 Active 116257163 Problem Other cirrhosis of liver K74.69 Activ e 48253850 Problem Portal hypertension K76.6 Active 14256507 ALLERGIES No Information ENCOUNTERS Encounter Location Date Diagnosis [place] [address] [address] [facility] [id number] [address] [place] [address] 30 Dec, [id number] [place] [address] Dec, Fever, unspecified fever cau se R50.9 [place] [address] [address] [facility] [id number] [address] [place] [address] Dec, Cough R05 and Fever, unspeci fied fever cause R50.9 [place] [address] [address] [facility] [id number] [address] [place] [address] Dec, [place] [address] [address] [facility] [id number] [address] [place] [address] Dec, [place] [address] [address] [facility] [id number] [address] [place] [id number] Dec, [place] [address] [address] [facility] [id number] [address] [place] [address] Nov, MACHUCA (nonalcoholic steatohep atitis) K75.81 ; BMI 50.0-59.9, adult Z68.43 and Type 2 diabetes mellitus with other specified complication E11.69 [place] [address] [facility] [id number] [address] [place] [address] Oct, Morbid (severe) obesity due to excess calories E66.01 and Type 2 diabetes mellitus with other specified complication E11.69 [place] [address] [facility] [id number] [address] [place] [address] Oct, Essential hypertension I10 ; BMI 50.0-59.9, adult Z68.43 and Morbid (severe) obesity due to excess calories E66.01 [place] [address] [address] [place] [id number] [address] [place] [address] Oct, Encounter for Medicare [facility] [...] E78.5 and Other cirrhosis of liver K74.69 [place] [address] [address] [place] [id number] [address] [place] [address] Oct, [place] [address] [address] [place] [id number] [address] [place] [address] Sep, Major depressive disorder, r ecurrent episode, moderate F33.1 ; Vitamin B12 deficiency E53.8 ; BMI 50.0-59.9, adult Z68.43 and Essential hypertension I10 [place] [address] [address] [facility] [id number] [address] [place] [address] Sep, Breast pain, right N64.[address] [id number] [address] Sep, Breast pain, right N64.[address] 340[id number] [address] Sep, Breast pain, right N64.[address] 340[id number] [address] Sep, Breast pain, right N64.4 [place] [address] [address] [facility] [id number] [address] [place] [address] Aug, [place] [address] [address] [facility] [id number] [address] [place] [address] Aug, Major depressive disorder, r ecurrent episode, moderate F33.1 ; BMI 50.0-59.9, adult Z68.43 ; Type 2 diabetes mellitus without complication E11.9 ; Breast pain, right N64.4 and Encounter for screening mammogram for breast cancer Z12.31 [facility] [address] [id number] [address] 13 Jun, 2019 Pneumonia of right middle lo be due to infectious organism J18.1 and Cough R05 [facility] [address] [id number] [address] 09 Jun, 2019 Acute nasopharyngitis J00 [place] [id number] [address] [place] [address] May, Iron deficiency anemia due t o [...] Major depressive disorder, recurrent episode, moderate F33.1 [place] [id number] [address] [place] [phone] May, Hyperlipidemia, unspecified E78.5 ; Other cirrhosis of liver K74.69 and Iron deficiency anemia due to chronic blood loss D50.0 [facility] [address] [place] [id number] [address] [place] [address] February, [facility] [address] [id number] [address] February, Acute recurrent pansinusitis J01.41 [facility] [address] [id number], [place] [address] February, Acute maxillary sinusitis, r ecurrence not specified J01.00 [place] [address] [facility] [id number] [address] [place] [address] Jan, Bilateral primary osteoarthr itis of knee M17.0 ; Morbid obesity E66.01 ; Viral syndrome B34.9 and Atrial dilatation, left I51.7 [place] [address] [address] Jan, [place] [address] [address] Dec, Trigeminy R00.8 [place] [address] [address] Dec, Essential hypertension I10 ; Morbid obesity E66.01 ; Low back pain M54.5 ; Other chronic pain G89.29 and Pain in right knee M25.561 [place] [address] [address] Nov, [place] [address] [address] Oct, Palpitations R00.2 [place] [address] [address] Oct, Encounter for Medicare ann l wellness [...] small and large intestine with complication K50.819 [place] [address] [address] [place] [id number] [address] [place] [address] Oct, [facility] [address] [place] [id number] [address] [place] [address] Oct, Crohn's disease of both smal l and large intestine with complication K50.819 [facility] [address] [place] [id number] [address] [place] [address] Jul, Sinusitis chronic, frontal J 32.1 ; Acute mucoid otitis media of both ears H65.113 ; Seasonal allergies J30.2 and BMI 50.0-59.9, adult Z68.43 [facility] [address] [address] 02 Jul, 2018 Essential hypertension I10 ; Type 2 diabetes mellitus with other specified complication E11.69 ; BMI 50.0-59.9, adult Z68.43 ; Mixed stress and urge urinary incontinence N39.46 and Mid back pain on right side M54.9 [place] [address] [address] 26 Jun, 2018 Iron deficiency anemia due t o chronic blood loss D50.0 ; Hyperlipidemia E78.5 ; Type 2 diabetes mellitus with other specified complication E11.69 ; Vitamin B12 deficiency E53.8 and Vitamin D deficiency E55.9 [facility] [address] [place] [id number] [address] [place] [address] 14 Jun, 2018 Cough R05 and BMI 50.0-59.9, adult Z68.43 [place] [address] [address] Jun, [facility] [address] [place] [id number] [address] [place] [phone] May, Iron deficiency anemia due t o chronic blood loss D50.0 ; Chronic diarrhea K52.9 ; Essential hypertension I10 ; Type 2 diabetes mellitus with other specified complication E11.69 ; Vitamin D deficiency E55.9 ; Colon stricture K56.699 ; Vitamin B12 deficiency E53.8 ; Hyperlipidemia E78.5 and BMI 50.0-59.9, adult Z68.43 [facility] [address] [place] [id number] [address] [place] [address] May, [facility] [address] [place] [id number] [address] [place] [address] Apr, Nonhealing wound of heel S91 .309A and Body mass index (BMI) of 50- 59.9 in adult Z68.43 [place] [address] [address] Mar, [facility] [address] [address] Mar, BMI 50.0-59.9, adult Z68.43 ; Flank pain R10.9 and Weight loss counseling, encounter for Z71.3 [place] [address] [address] [place] [id number] [address] [place] [address] February, [place] [address] [address] Jan, [place] [address] [address] Jan, [facility] [address] [address] Jan, Diarrhea due to staphylococc us A04.8 and Diarrhea, unspecified type R19.7 [place] [address] [address] Jan, Acquired hypothyroidism E03. 9 ; Type 2 diabetes mellitus with other specified complication E11.69 ; Hyperlipidemia E78.5 ; Essential hypertension I10 ; Major depressive disorder, recurrent episode, moderate F33.1 and Vitamin D deficiency E55.9 [place] [address] [place] [id number] [address] [place] [address] Jan, Type 2 diabetes mellitus wit h other specified complication E11.69 ; Hyperlipidemia E78.5 ; Essential hypertension I10 ; Acquired hypothyroidism E03.9 ; Major depressive disorder, recurrent episode, moderate F33.1 ; Vitamin D deficiency E55.9 ; Sinus congestion R09.81 and BMI 50.0-59.9, adult Z68.43 [place] [address] [address] [place] [id number] [address] [place] [address] Dec, [place] [address] [address] [place] [address] Sep, Encounter for immunization Z 23 [facility] [address] [address] Sep, [facility] [address] [address] Sep, Vitamin B12 deficiency E53.8 [facility] [address] [address] Aug, [place] [address] [address] Aug, BMI 60.0-69.9, adult Z68.44 and Acute non-recurrent maxillary sinusitis J01.00 [place] [address] [address] Aug, [place] [address] [address] Aug, Medicare annual wellness vis it, initial Z00.00 ; Screening for breast cancer Z12.31 ; BMI 40.0-44.9, adult Z68.41 and Acquired hypothyroidism E03.9 [place] [address] [address] Jul, Actinic keratosis L57.0 [place] [address] [address] Jul, Actinic keratosis L57.0 [place] [address] [address] Jul, Type 2 diabetes mellitus wit h other specified complication E11.69 ; Actinic keratosis L57.0 and Hypothyroidism, unspecified E03.9 [place] [address] [address] [place] [id number] [address] [place] [address] Jul, [place] [address] [address] Jul, [place] [address] [address] [place] [id number] [address] [place] [address] Jul, Vitamin B12 deficiency E53.8 [place] [address] [address] Jun, Acquired hypothyroidism E03. 9 and Chronic tension-type headache, intractable G44.221 [place] [address] [address] Jun, Back muscle spasm M62.830 an d BMI 50.0-59.9, adult Z68.43 [place] [address] [address] Jun, Vitamin B12 deficiency E53.8 [place] [address] [address] Jun, Crohn's disease of both smal l and large intestine with complication K50.819 [place] [address] [address] Jun, Crohn's disease of both smal l and large intestine with complication K50.819 [place] [address] [address] May, Hyperlipidemia E78.5 ; Anxie ty F41.9 and Essential hypertension I10 [place] [address] [address] May, [place] [address] [address] May, Encounter for immunization Z 23 and Vitamin B12 deficiency E53.8 [place] [address] [address] May, [place] [address] [address] Apr, [place] [address] [address] Apr, [place] [address] [id number] [address] [place] [address] Apr, Crohn's disease of both smal l and large intestine with complication K50.819 [place] [address] [id number] [address] [place] [address] Apr, Vitamin B12 deficiency E53.8 [place] [address] [id number] [address] [place] [address] Apr, Crohn's disease of both smal l and large intestine with complication K50.819 and Acute pain of right shoulder M25.511 [place] [address] [id number] [address] [place] [address] Mar, Type 2 diabetes mellitus wit hout complication E11.9 ; Frequent falls R29.6 and Other chest pain R07.89 [place] [address] [address] [facility] [id number] [address] [place] [address] Mar, [place] [address] [id number] [address] [place] [address] Mar, [place] [address] [address] [facility] [id number] [address] [place] [address] Mar, Type 2 diabetes mellitus wit hout complication E11.9 and Blurry vision, bilateral H53.8 [place] [address] [id number] [address] [place] [address] Mar, Vitamin B12 deficiency E53.8 [place] [address] [id number] [address] [place] [address] Mar, Crohn's disease of both smal l and large intestine with complication K50.819 [place] [address] [id number] [address] [place] [address] February, Vitamin B12 deficiency E53.8 [place] [address] [address] [facility] [id number] [address] [place] [address] Jan, Crohn's disease of both smal l and large intestine with complication K50.819 [facility] [address] [facility] [id number] [address] [place] [address] Jan, Crohn's disease of both smal l and large intestine with complication K50.819 [facility] [address] [facility] [id number] [address] [place] [address] Jan, Dark brown-colored urine R82 .99 and Acute suppurative otitis media of right ear without spontaneous rupture of tympanic membrane, recurrence not specified H66.001 [facility] [address] [facility] [id number] [address] [place] [address] Jan, Encounter for immunization Z 23 [place] [address] [address] [place] [id number] [address] [place] [address] Dec, Crohn's disease of both smal l and large intestine with complication K50.819 and Eustachian tube dysfunction, right H69.81 [facility] [address] [place] [address] Dec, [facility] [address] [place] [id number] [address] [place] [address] Dec, Contusion of right knee, ini tial encounter S80.01XA [place] [address] [address] [place] [id number] [address] [place] [address] Dec, [place] [address] [place] [id number] [address] [place] [address] Dec, Acute pain of right knee M25 .561 [facility] [address] [place] [id number] [address] [place] [address] Dec, Iron deficiency anemia due t o chronic blood loss D50.0 [place] [address] [address] [place] [id number] [address] [place] [address] Dec, Hyperlipidemia E78.5 ; Type 2 diabetes mellitus without complication E11.9 ; Vitamin B12 deficiency E53.8 ; Essential hypertension I10 ; Obstructive sleep apnea on CPAP G47.33 and Periodic limb movement sleep disorder G47.61 [place] [address] [facility] [id number] [address] [place] [address] Nov, Type 2 diabetes mellitus wit hout complication E11.9 ; Vitamin B12 deficiency E53.8 ; Hyperlipidemia E78.5 ; Essential hypertension I10 ; Obstructive sleep apnea on CPAP G47.33 ; Periodic limb movement sleep disorder G47.61 ; Anxiety F41.9 ; Acquired hypothyroidism E03.9 and Chronic tension-type headache, intractable G44.221 [place] [address] [address] [facility] [id number] [address] [place] [address] Nov, Crohn's disease of both smal l and large intestine with complication K50.819 [place] [address] [place] [id number] [address] [place] [address] Nov, Vitamin B12 deficiency E53.8 [place] [address] [place] [address] Oct, [place] [id number] [place] [address] Oct, Vitamin B12 deficiency E53.8 [place] [address] [place] [id number] [address] [place] [address] Sep, [place] [address] [place] [id number] [address] [place] [address] Sep, Vitamin B12 deficiency E53.8 [place] [address] [place] [id number] [address] [place] [address] Aug, [place] [address] [place] [id number] [address] [place] [address] 14 Aug, 2016 Vitamin B12 deficiency E53.8 [place] [address] [place] [id number] [address] [place] [address] 10 Aug, 2016 [place] [address] [place] [id number] [address] [place] [address] 24 Jul, 2016 Elevated ALT measurement R74 .0 [place] [address] [place] [id number] [address] [place] [address] Jul, Hematuria R31.9 ; Acute righ t-sided thoracic back pain M54.6 ; Major depressive disorder, recurrent episode, moderate F33.1 and Elevated ALT measurement R74.0 [place] [address] [id number] [address] [place] [address] Jul, [place] [address] [address] [facility] [id number] [address] [place] [address] Jul, Elevated ALT measurement R74 .0 [place] [address] [address] [facility] [id number] [address] [place] [address] Jul, Iron deficiency anemia due t o chronic blood loss D50.0 [place] [address] [address] [facility] [id number] [address] [place] [address] 14 Jul, 2016 Type 2 diabetes mellitus wit hout complication E11.9 ; Acquired hypothyroidism E03.9 ; Iron deficiency anemia due to chronic blood loss D50.0 ; Hyperlipidemia E78.5 and Essential hypertension I10 [place] [address] [address] [facility] [id number] [address] [place] [address] Jun, [place] [address] [address] [facility] [id number] [address] [place] [address] 20 Jun, 2016 Vitamin B12 deficiency E53.8 [place] [address] [address] [facility] [id number] [address] [place] [address] 16 Jun, 2016 Type 2 diabetes mellitus wit hout complication E11.9 ; Acquired hypothyroidism E03.9 ; Iron deficiency anemia due to chronic blood loss D50.0 ; Hyperlipidemia E78.5 ; Essential hypertension I10 ; Chronic tension-type headache, intractable G44.221 ; Pulsatile tinnitus, bilateral H93.13 ; Obstructive sleep apnea on CPAP G47.33 and Major depressive disorder, recurrent episode, moderate F33.1 [place] [address] [address] [facility] [id number] [address] [place] [address] May, Vitamin B12 deficiency E53.8 [place] [address] [address] [facility] [id number] [address] [place] [address] May, [facility] [address] [id number] [address] [place] [address] Apr, Vitamin B12 deficiency E53.8 [facility] [address] [id number] [address] [place] [address] 05 Apr, 2016 [facility] [address] [facility] [id number] [address] [place] [address] Mar, Chronic tension-type headach e, intractable G44.221 and Major depressive disorder, recurrent episode, moderate F33.1 [facility] [address] [facility] [id number] [address] [place] [address] Mar, Vitamin B12 deficiency E53.8 [facility] [address] [facility] [id number] [address] [place] [address] February, [facility] [address] [facility] [id number] [address] [place] [address] February, Vitamin B12 deficiency E53.8 [facility] [address] [facility] [id number] [address] [place] [address] February, [facility] [address] [facility] [id number] [address] [place] [address] Jan, Dysuria R30.0 [facility] [address] [facility] [id number] [address] [place] [address] Jan, Type 2 diabetes mellitus wit hout complication E11.9 and Essential hypertension I10 [facility] [address] [facility] [id number] [address] [place] [address] 15 Jan, 2016 Chronic diarrhea K52.9 [facility] [address] [facility] [id number] [address] [place] [address] 13 Jan, 2016 [facility] [address] [facility] [id number] [address] [place] [id number] 12 Jan, 2016 Chronic diarrhea K52.9 [facility] [address] [facility] [id number] [address] [place] [id number] Jan, [facility] [address] [facility] [id number] [address] [place] [id number] 12 Jan, 2016 Dysuria R30.0 [facility] [address] [facility] [id number] [address] [place] [id number] 07 Jan, 2016 Vitamin B12 deficiency E53.8 [facility] [address] [facility] [id number] [address] [place] [phone] 07 Jan, 2016 Dysuria R30.0 and Iron defic iency anemia due to chronic blood loss D50.0 [facility] [address] [facility] [id number] [address] [place] [id number] 05 Jan, 2016 Dysuria R30.0 [facility] [address] [facility] [id number] [address] [place] [id number] 04 Jan, 2016 [facility] [address] [place] [id number] [address] [place] [id number] 15 Dec, 2015 [facility] [address] [facility] [id number] [address] [place] [id number] 11 Dec, 2015 Iron deficiency anemia due t o chronic blood loss D50.0 [facility] [address] [facility] [id number] [address] [place] [address] 10 Dec, 2015 Dysuria R30.0 ; Fatigue R53. 83 ; Hyperlipidemia E78.5 and Diarrhea R19.7 [facility] [address] [facility] [id number] [address] [place] [id number] 09 Dec, 2015 [facility] [address] [facility] [id number] [address] [place] [address] 02 Dec, 2015 [facility] [address] [id number] [address] [place] [id number] 10 Nov, 2015 Vitamin B12 deficiency E53.8 [facility] [address] [facility] [id number] [address] [place] [address] Oct, Vitamin B12 deficiency E53.8 [facility] [id number] [place] [address] 12 Oct, 2015 [facility] [address] [facility] [id number] [address] [place] [id number] 09 Oct, 2015 Headache R51 [facility] [address] [id number] [address] [place] [id number] 07 Oct, 2015 Essential hypertension I10 ; Type 2 diabetes mellitus without complication E11.9 ; Vitamin B12 deficiency E53.8 ; Acquired hypothyroidism E03.9 ; Iron deficiency anemia due to chronic blood loss D50.0 and Hyperlipidemia E78.5 [facility] [address] [facility] [id number] [address] [place] [id number] 17 Sep, 2015 Essential hypertension I10 ; Vitamin B12 deficiency E53.8 ; Iron deficiency anemia due to chronic blood loss D50.0 ; Type 2 diabetes mellitus without complication E11.9 ; Hyperlipidemia E78.5 and Acquired hypothyroidism E03.9 [facility] [id number] [place] [id number] 08 Sep, 2015 [facility] [id number] [place] [address] Sep, [facility] [address] [id number] [address] [place] [address] Jul, [facility] [address] [id number] [address] [place] [address] Jun, [facility] [address] [id number] [address] [place] [id number] 18 Jun, 2015 [facility] [address] [id number] [address] [place] [id number] 15 Jun, 2015 Hyperlipidemia 272.4 ; Iron deficiency anemia 280.9 ; Hypothyroidism 244.9 ; Diabetes mellitus without mention of complication, type II or unspecified type, not stated as uncontrolled 250.00 and Hypertension 401.9 [facility] [address] [id number] [address] [place] [id number] 04 Jun, 2015 [facility] [address] [id number] [address] [place] [id number] Jun, [facility] [address] [facility] [id number] [address] [place] [id number] May, Hyperlipidemia 272.4 [facility] [address] [facility] [id number] [address] [place] [address] May, [facility] [address] [facility] [id number] [address] [place] [id number] May, [facility] [address] [facility] [id number] [address] [place] [address] Apr, Diabetes mellitus without me ntion of complication, type II or unspecified type, not stated as uncontrolled 250.00 ; Hypothyroidism 244.9 ; Hyperlipidemia 272.4 ; Pain in joint, lower leg 719.46 and RUQ pain 789.01 [facility] [address] [facility] [id number] [address] [place] [id number] Mar, Sinusitis 473.9 [facility] [address] [facility] [id number] [address] [place] [id number] Mar, [facility] [address] [facility] [id number] [address] [place] [id number] Mar, [facility] [address] [facility] [id number] [address] [place] [address] Mar, Hematochezia 578.1 [facility] [address] [facility] [id number] [address] [place] [address] February, Sinusitis 473.9 [facility] [address] [facility] [id number] [address] [place] [id number] February, [facility] [address] [facility] [id number] [address] [place] [phone] Jan, [facility] [address] [facility] [id number] [address] [place] [phone] Jan, [facility] [address] [facility] [id number] [address] [place] [phone] Dec, [facility] [place] [facility] [address] [id number] [address] [place] [address], [place] [address] Dec, [facility] [place] [facility] [address] [id number] [address] [place] [address], [place] [address] Dec, [facility] [place] [facility] [address] [id number] [address] [place] [address], [place] [address] Dec, [facility] [place] [facility] [address] [id number] [address] [place] [address], [place] [address] Dec, [facility] [place] [facility] [address] [id number] [address] [place] [address], [place] [address] Dec, [facility] [place] [facility] [address] [id number] [address] [place] [address], [place] [address] Dec, [facility] [place] [facility] [address] [id number] [address] [place] [address], [place] [address] Dec, [facility] [place] [facility] [address] [id number] [address] [place] [address], [place] [address] Dec, [facility] [place] [facility] [address] [id number] [address] [place] [address], [place] [address] Dec, [facility] [place] [facility] [address] [id number] [address] [place] [address], [place] [address] Dec, [facility] [place] [facility] [address] [id number] [address] [place] [address], [place] [address] Nov, [facility] [place] [facility] [address] [id number] [address] [place] [address], [place] [address] Nov, [facility] [place] [facility] [address] [id number] [address] [place] [address], [place] [address] Nov, [facility] [place] [facility] [address] [id number] [address] [place] [address], [place] [address] Nov, [facility] [place] [facility] [address] [id number] [address] [place] [address], [place] [address] Oct, [facility] [place] [facility] [address] [id number] [address] [place] [address], [place] [address] Oct, [facility] [address] [id number] [address] [place] [address], [place] [address] Oct, [facility] [address] [id number] [address] [place] [address], [place] [address] Oct, [facility] [address] [id number] [address] [place] [address], [place] [address] Oct, [facility] [address] [id number] [address] [place] [address], [place] [address] Oct, [facility] [address] [id number] [address] [place] [address], [place] [address] Sep, [facility] [address] [id number] [address] [place] [address], [place] [address] Sep, [facility] [address] [id number] [address] [place] [address], [place] [address] Sep, [facility] [address] [id number] [address] [place] [address], [place] [address] Sep, [facility] [address] [id number] [address] [place] [address], [place] [address] Sep, [facility] [address] [id number] [address] [place] [address], [place] [address] Sep, [facility] [address] [id number] [address] [place] [address], [place] [address] Sep, [facility] [address] [id number] [address] [place] [address], [place] [address] Aug, [facility] [address] [id number] [address] [place] [address], [place] [address] Aug, [facility] [address] [id number] [address] [place] [address], [place] [address] Aug, [facility] [address] [id number] [address] [place] [address], [place] [address] Aug, [facility] [address] [id number] [address] [place] [address], [place] [address] Aug, [facility] [place] [facility] [address] [id number] [address] [place] [address], [place] [address] Aug, [facility] [place] [facility] [address] [id number] [address] [place] [address], [place] [address] Aug, [facility] [place] [facility] [address] [id number] [address] [place] [address], [place] [address] Aug, [facility] [place] [facility] [address] [id number] [address] [place] [address], [place] [address] Aug, [facility] [place] [facility] [address] [id number] [address] [place] [address], [place] [address] Aug, [facility] [place] [facility] [address] [id number] [address] [place] [address], [place] [address] Aug, [facility] [place] [facility] [address] [id number] [address] [place] [address], [place] [address] Aug, [facility] [place] [facility] [address] [id number] [address] [place] [address], [place] [address] Aug, [facility] [place] [facility] [address] [id number] [address] [place] [address], [place] [address] Aug, [facility] [place] [facility] [address] [id number] [address] [place] [address] Jul, [facility] [place] [facility] [address] [id number] [address] [place] [address] Jul, [facility] [place] [facility] [address] [id number] [address] [place] [address], [place] [address] Jul, [facility] [place] [facility] [address] [id number] [address] [place] [address] Jul, [facility] [place] [facility] [address] [id number] [address] [place] [address] Jun, [facility] [place] [facility] [address] [id number] [address] [place] [id number] 24 Jun, 2013 [facility] [address] [id number] [address] [place] [address], [place] [address] 23 Jun, 2013 [facility] [place] [facility] [address] [id number] [address] [place] [address], [place] [address] 23 Jun, 2013 [facility] [address] [id number] [address] [place] [address], [place] [address] 19 Jun, 2013 [facility] [address] [id number] [address] [place] [address], [place] [address] 19 Jun, 2013 [facility] [address] [id number] [address] [place] [address], [place] [address] 11 Jun, 2013 [facility] [address] [id number] [address] [place] [address], [place] [address] 11 Jun, 2013 [facility] [address] [id number] [address] [place] [address], [place] [address] 11 Jun, 2013 [facility] [address] [id number] [address] [place] [address], [place] [address] 11 Jun, 2013 [facility] [address] [id number] [address] [place] [address], [place] [address] 10 Jun, 2013 [facility] [address] [id number] [address] [place] [address], [place] [address] 10 Jun, 2013 [facility] [address] [id number] [address] [place] [address], [place] [address] 09 Jun, 2013 [facility] [place] [facility] [address] [id number] [address] [place] [address], [place] [address] 09 Jun, 2013 [facility] [place] [facility] [address] [id number] [address] [place] [address], [place] [address] 14 May, 2014 [facility] [place] [facility] [address] [id number] [address] [place] [address], [place] [address] 14 May, 2014 [facility] [place] [facility] [address] [id number] [address] [place] [address], [place] [address] 13 May, 2014 [facility] [place] [facility] [address] [id number] [facility] [address] May, [facility] [address] [id number] [facility] [address] May, [facility] [place] [facility] [address] [id number] [facility] [address] May, [facility] [address] [id number] [facility] [address] Apr, [facility] [address] [id number] [facility] [address] Apr, [facility] [address] [id number] [address] [place] [address], [place] [address] Apr, [facility] [address] [id number] [address] [place] [address], [place] [address] Apr, [facility] [address] [id number] [address] [place] [address], [place] [address] Apr, [facility] [address] [id number] [address] [place] [address], [place] [address] Apr, [facility] [address] [id number] [address] [place] [address], [place] [address] Apr, [facility] [address] [id number] [address] [place] [address], [place] [address] Apr, [facility] [place] [facility] [address] [id number] [address] [place] [address], [place] [address] Apr, [facility] [address] [id number] [address] [place] [address], [place] [address] Apr, [facility] [place] [facility] [address] [id number] [address] [place] [address], [place] [address] Apr, [facility] [place] [facility] [address] [id number] [address] [place] [address], [place] [address] Mar, [facility] [place] [facility] [address] [id number] [address] [place] [address], [place] [address] Mar, [facility] [address] [id number] [address] [place] [address], [place] [address] Mar, [facility] [address] [id number] [address] [place] [address], [place] [address] Mar, [facility] [address] [id number] [address] [place] [address], [place] [address] February, [facility] [address] [id number] [address] [place] [address], [place] [address] February, [facility] [address] [id number] [address] [place] [address], [place] [address] Jan, [facility] [address] [id number] [address] [place] [address], [place] [address] Jan, [address] [id number] Jan, [facility] [address] [id number] [address] [place] [address], [place] [address] Jan, [facility] [address] [id number] [address] [place] [address], [place] [address] Jan, [facility] [address] [id number] [address] [place] [address], [place] [address] Jan, [facility] [address] [id number] [address] [place] [address], [place] [address] Jan, [facility] [address] [id number] [address] [place] [address], [place] [address] Jan, [facility] [address] [id number] [address] [place] [address], [place] [address] Jan, [facility] [address] [id number] [address] [place] [address], [place] [address] Jan, [facility] [address] [id number] [address] [place] [address], [place] [address] Jan, [facility] [address] [id number] [address] [place] [address], [place] [address] Jan, [facility] [place] [facility] [address] [id number] [facility] [address] Jan, [facility] [place] [facility] [address] [id number] [address] [place] [address], [place] [address] Jan, [facility] [place] [facility] [address] [id number] [address] [place] [address], [place] [address] Jan, [facility] [place] [facility] [address] [id number] [address] [place] [address], [place] [address] Jan, [facility] [place] [facility] [address] [id number] [address] [place] [address], [place] [address] Jan, [facility] [place] [facility] [address] [id number] [address] [place] [address], [place] [address] Dec, [facility] [place] [facility] [address] [id number] [address] [place] [address], [place] [address] Dec, [facility] [place] [facility] [address] [id number] [address] [place] [address], [place] [address] Dec, [facility] [place] [facility] [address] [id number] [address] [place] [address], [place] [address] Dec, [facility] [place] [facility] [address] [id number] [address] [place] [address], [place] [address] Dec, [facility] [place] [facility] [address] [id number] [address] [place] [address], [place] [address] Dec, [facility] [place] [facility] [address] [id number] [address] [place] [address], [place] [address] Dec, [facility] [place] [facility] [address] [id number] [address] [place] [address], [place] [address] Nov, [facility] [place] [facility] [address] [id number] [address] [place] [address], [place] [address] Nov, [facility] [place] [facility] [address] [id number] [address] [place] [address], [place] [address] Nov, [facility] [place] [facility] [address] [id number] [address] [place] [address], [place] [address] Nov, [facility] [address] [id number] [address] [place] [address], [place] [address] Nov, [facility] [address] [id number] [address] [place] [address], [place] [address] Nov, [facility] [address] [id number] [address] [place] [address], [place] [address] Nov, [facility] [address] [id number] [address] [place] [address], [place] [address] Oct, [facility] [address] [id number] [address] [place] [address], [place] [address] Oct, [facility] [address] [id number] [address] [place] [address], [place] [address] Sep, [facility] [address] [id number] [address] [place] [address], [place] [address] Sep, [facility] [address] [id number] [address] [place] [address], [place] [address] Sep, [facility] [address] [id number] [address] [place] [address], [place] [address] Sep, [facility] [address] [id number] [address] [place] [address], [place] [address] Sep, [facility] [address] [id number] [address] [place] [address], [place] [address] Sep, [facility] [address] [id number] [address] [place] [address], [place] [address] Sep, [facility] [address] [id number] [address] [place] [address], [place] [address] Sep, [facility] [address] [id number] [address] [place] [address], [place] [address] Sep, [facility] [address] [id number] [address] [place] [address], [place] [address] Sep, [facility] [address] [id number] [address] [place] [phone] Aug, [facility] [address] [id number] [address] [place] [phone] Aug, [facility] [address] [id number] [address] [place] [id number] Aug, [facility] [address] [id number] [address] [place] [phone] Aug, [facility] [address] [id number] [address] [place] [phone] Aug, [facility] [address] [id number] [address] [place] [phone] Jul, [facility] [address] [id number] [address] [place] [phone] Jul, [facility] [address] [id number] [address] [place] [phone] Jul, [facility] [address] [id number] [address] [place] [id number] Jul, IMMUNIZATIONS No Known Immunizations SOCIAL HISTORY Never Assessed REASON FOR VISIT PLAN OF CARE VITAL SIGNS Height 62 in 2014-05-22 Weight 287 lbs 2014-05-22 Temperature 97.8 degrees Fahrenheit 2014-05-22 Heart Rate 84 bpm 2014-05-22 Respiratory Rate 20 2014-05-22 Blood pressure systolic 132 mmHg 2014-05-22 Blood pressure diastolic 84 mmHg 2014-05-22 MEDICATIONS Unknown Medications RESULTS No Results PROCEDURES Procedure Date Ordered Result Body Site VENIPUNCT, ROUTINE* May 22, 2014 COMPLETE CBC W/AUTO DIFF WBC May 22, 2014 ASSAY THYROID STIM HORMONE May 22, 2014 GLYCATED HEMOGLOBIN TEST May 22, 2014 MICROALBUMIN, QUANTITATIVE May 22, 2014 URINALYSIS, AUTO, W/O SCOPE May 22, 2014 INSTRUCTIONS MEDICATIONS ADMINISTERED No Known Medications [...]
--- OUTSIDE RECORDS SUMMARY | 2020-03-16 11:44 | XMS REPORT ---
Author Author Swathi Benavides Organization [facility] Address [address] [place] [address] Care Team Providers Care Individual Pension Consultant Name Role Phone WIL Benavides Unavailable PROBLEMS Type Condition ICD9-CM Code YNL56-[id number] Code Onset Dates Condition S tatus SNOMED Code Problem Sensorineural hearing loss of right ear H90.41 Active 44352818 Problem Obstructive sleep apnea on CPAP G47.33 Active 90922053 Problem Periodic limb movement sleep disorder G47.61 Active 260564119 Problem Iron deficiency anemia due to chronic blood loss D 50.0 Active 05457380 Problem MACHUCA (nonalcoholic steatohepatitis) K75.81 Active 563710647 Problem Vitamin B12 deficiency E53.8 Active 554144314 Problem Chronic diarrhea K52.9 Active 236 317388 Problem Vitamin D deficiency E55.9 Active 69188986 Problem BMI 50.0-59.9, adult Z68.43 Active 878242097 Problem Fatty liver K76.0 Active 70191020 7 Problem Anxiety F41.9 Active 57064948 Problem Major depressive disorder, recurrent episode, moderate F33.1 Active 120786347 Problem Chronic tension-type headache, intractable G44.221 Active 503717203 Problem Right upper quadrant pain R10.11 Acti ve 58200994 Problem Frequent falls R29.6 Active 21039 2001 Problem Crohn's disease of both small and large intestin e with complication K50.819 Active 33493214 Problem Type 2 diabetes mellitus with other specified complication E11.69 Active 309699823590 Problem Hyperlipidemia, unspecified E78.5 Ac tive 64394525 Problem Mixed stress and urge urinary incontinence N39.46 Active 238333138 Problem Sinusitis chronic, frontal J32.1 Act katlyn 83068140 Problem Seasonal allergies J30.2 Active 4 40987898 Problem Other chronic pain G89.29 Active 8 2032828 Problem Hyperlipidemia E78.5 Active 29921 004 Problem Bilateral primary osteoarthritis of knee M17.0 Active 377848650 Problem Essential hypertension I10 Active 65004374 Problem Acquired hypothyroidism E03.9 Active 039148287 Problem History of hysterectomy for benign disease Z90.710 Active 734032154 Problem Morbid (severe) obesity due to excess calories E66 .01 Active 798931136 Problem Other cirrhosis of liver K74.69 Activ e 18887894 Problem Portal hypertension K76.6 Active 04106613 ALLERGIES No Information ENCOUNTERS Encounter Location Date Diagnosis [place] [address] [address] Jan, [place] [address] [address] Nov, MACHUCA (nonalcoholic steatohepatitis) K75. 81 ; BMI 50.0-59.9, adult Z68.43 and Type 2 diabetes mellitus with other specified complication E11.69 [place] [address] [address] Oct, Morbid (severe) obesity due to excess ca lories E66.01 and Type 2 diabetes mellitus with other specified complication E11.69 [place] [address] [address] Oct, Essential hypertension I10 ; BMI 50.0-59 .9, adult Z68.43 and Morbid (severe) obesity due to excess calories E66.01 [place] [address] [address] Oct, Encounter for Medicare annual wellness e xam Z00.00 ; Portal hypertension K76.6 ; Crohn's [...] E78.5 and Other cirrhosis of liver K74.69 [place] [address] [address] Oct, [facility] [address] [facility] [place] [address] Sep, Major depressive disorder, recurrent epi sode, moderate F33.1 ; Vitamin B12 deficiency E53.8 ; BMI 50.0-59.9, adult Z68.43 and Essential hypertension I10 [place] [address] [place] [id number] [place] [address] Sep, Breast pain, right N64.4 [address] [place] [address] Sep, Breast pain, right N64.[address] [place] [address] Sep, Breast pain, right N64.[address] [place] [address] Sep, Breast pain, right N64.4 [place] [address] [place] [id number] [place] [address] Aug, [place] [address] [place] [id number] [place] [address] Aug, Major depressive disorder, recurrent epi sode, moderate F33.1 ; BMI 50.0-59.9, adult Z68.43 ; Type 2 diabetes mellitus without complication E11.9 ; Breast pain, right N64.4 and Encounter for screening mammogram for breast cancer Z12.31 [facility] [address] [place] [address] Jun, Pneumonia of right middle lo be due to infectious organism J18.1 and Cough R05 [facility] [address] [place] [address] Jun, Acute nasopharyngitis J00 [place] [address] [facility] [place] [address] May, Iron deficiency anemia due to chronic bl ood loss D50.0 ; Vitamin B12 deficiency E53.8 ; Crohn's disease of both small and large intestine with complication K50.819 ; Type 2 diabetes mellitus with other specified complication E11.69 ; Hyperlipidemia, unspecified E78.5 ; Vitamin D deficiency E55.9 ; Other cirrhosis of liver K74.69 ; Essential hypertension I10 and Major depressive disorder, recurrent episode, moderate F33.1 [place] [address] [address] May, Hyperlipidemia, unspecified E78.5 ; Othe r cirrhosis of liver K74.69 and Iron deficiency anemia due to chronic blood loss D50.0 [place] [address] [address] February, [facility] [address] [place] [address] February, Acute recurrent pansinusitis J01.41 [facility] [address] [place] [address] February, Acute maxillary sinusitis, r ecurrence not specified J01.00 [place] [address] [address] Jan, Bilateral primary osteoarthritis of knee M17.0 ; Morbid obesity E66.01 ; Viral syndrome B34.9 and Atrial dilatation, left I51.7 [place] [address] [address] Jan, [place] [address] [address] Dec, Trigeminy R00.8 [place] [address] [address] Dec, Essential hypertension I10 ; Morbid obes ity E66.01 ; Low back pain M54.5 ; Other chronic pain G89.29 and Pain in right knee M25.561 [place] [address] [address] Nov, [place] [address] [address] Oct, Palpitations R00.[address] [address] Oct, Encounter for Medicare annual wellness e xam Z00.00 ; Major depressive disorder, recurrent episode, [...] small and large intestine with complication K50.[address] [address] Oct, [address] [address] Oct, Crohn's disease of both small and large intestine with complication K50.819 [facility] [address] [place] [address] [id number] [place] [address] Jul, Sinusitis chronic, frontal J 32.1 ; Acute mucoid otitis media of both ears H65.113 ; Seasonal allergies J30.2 and BMI 50.0-59.9, adult Z68.[address] [address] Jul, Essential hypertension I10 ; Type 2 diab etes mellitus with other specified complication E11.69 ; BMI 50.0-59.9, adult Z68.43 ; Mixed stress and urge urinary incontinence N39.46 and Mid back pain on right side M54.[address] [address] Jun, Iron deficiency anemia due to chronic bl ood loss D50.0 ; Hyperlipidemia E78.5 ; Type 2 diabetes mellitus with other specified complication E11.69 ; Vitamin B12 deficiency E53.8 and Vitamin D deficiency E55.9 [facility] [address] [facility] [id number] [address] [place] [address] Jun, Cough R05 and BMI 50.0-59.9, adult Z68.43 [place] [address] [address] Jun, [place] [address] [address] May, Iron deficiency anemia due to chronic bl ood loss D50.0 ; Chronic diarrhea K52.9 ; Essential hypertension I10 ; Type 2 diabetes mellitus with other specified complication E11.69 ; Vitamin D deficiency E55.9 ; Colon stricture K56.699 ; Vitamin B12 deficiency E53.8 ; Hyperlipidemia E78.5 and BMI 50.0-59.9, adult Z68.43 [place] [address] [address] May, [place] [address] [address] Apr, Nonhealing wound of heel S91.309A and Christopher dy mass index (BMI) of 50-59.9 in adult Z68.43 [place] [address] [address] Mar, [place] [address] [address] Mar, BMI 50.0-59.9, adult Z68.43 ; Flank pain R10.9 and Weight loss counseling, encounter for Z71.[address] [address] February, [place] [address] [address] Jan, [place] [address] [address] Jan, [facility] [address] [facility] [id number] [address] [place] [address] Jan, Diarrhea due to staphylococc us A04.8 and Diarrhea, unspecified type R19.7 [place] [address] [address] 10 Jan, 2018 Acquired hypothyroidism E03.9 ; Type 2 d iabetes mellitus with other specified complication E11.69 ; Hyperlipidemia E78.5 ; Essential hypertension I10 ; Major depressive disorder, recurrent episode, moderate F33.1 and Vitamin D deficiency E55.9 [place] [address] [address] 03 Jan, 2018 Type 2 diabetes mellitus with other spec ified complication E11.69 ; Hyperlipidemia E78.5 ; Essential hypertension I10 ; Acquired hypothyroidism E03.9 ; Major depressive disorder, recurrent episode, moderate F33.1 ; Vitamin D deficiency E55.9 ; Sinus congestion R09.81 and BMI 50.0-59.9, adult Z68.43 [place] [address] [address] Dec, [place] [address] [address] Sep, Encounter for immunization Z23 [address] [address] Sep, [place] [address] [address] Sep, Vitamin B12 deficiency E53.8 [place] [address] [address] Aug, [place] [address] [address] Aug, BMI 60.0-69.9, adult Z68.44 and Acute no n-recurrent maxillary sinusitis J01.00 [place] [address] [address] 14 Aug, 2017 [place] [address] [address] 02 Aug, 2017 Medicare annual wellness visit, initial Z00.00 ; Screening for breast cancer Z12.31 ; BMI 40.0-44.9, adult Z68.41 and Acquired hypothyroidism E03.9 [place] [address] [address] Jul, Actinic keratosis L57.0 [place] [address] [address] Jul, Actinic keratosis L57.0 [place] [address] [address] Jul, Type 2 diabetes mellitus with other spec ified complication E11.69 ; Actinic keratosis L57.0 and Hypothyroidism, unspecified E03.9 [place] [address] [address] Jul, [place] [address] [address] Jul, [place] [address] [address] Jul, Vitamin B12 deficiency E53.8 [place] [address] [address] Jun, Acquired hypothyroidism E03.9 and Chroni c tension-type headache, intractable G44.221 [place] [address] [address] Jun, Back muscle spasm M62.830 and BMI 50.0-5 9.9, adult Z68.43 [place] [address] [address] Jun, Vitamin B12 deficiency E53.8 [place] [address] [address] Jun, Crohn's disease of both small and large intestine with complication K50.819 [place] [address] [address] Jun, Crohn's disease of both small and large intestine with complication K50.819 [place] [address] [address] May, Hyperlipidemia E78.5 ; Anxiety F41.9 and Essential hypertension I10 [place] [address] [address] May, [place] [address] [address] May, Encounter for immunization Z23 and Vitam in B12 deficiency E53.8 [place] [address] [address] May, [place] [address] [address] Apr, [place] [address] [address] Apr, [place] [address] [address] Apr, Crohn's disease of both small and large intestine with complication K50.819 [place] [address] [address] Apr, Vitamin B12 deficiency E53.8 [place] [address] [address] Apr, Crohn's disease of both small and large intestine with complication K50.819 and Acute pain of right shoulder M25.511 [place] [address] [address] Mar, Type 2 diabetes mellitus without complic ation E11.9 ; Frequent falls R29.6 and Other chest pain R07.89 [place] [address] [address] Mar, [place] [address] [address] Mar, [place] [address] [address] Mar, Type 2 diabetes mellitus without complic ation E11.9 and Blurry vision, bilateral H53.8 [place] [address] [address] Mar, Vitamin B12 deficiency E53.8 [place] [address] [address] Mar, Crohn's disease of both small and large intestine with complication K50.819 [place] [address] [address] February, Vitamin B12 deficiency E53.8 [place] [address] [address] Jan, Crohn's disease of both small and large intestine with complication K50.819 [place] [address] [address] Jan, Crohn's disease of both small and large intestine with complication K50.819 [facility] [address] [facility] [id number] [address] [place] [address] Jan, Dark brown-colored urine R82 .99 and Acute suppurative otitis media of right ear without spontaneous rupture of tympanic membrane, recurrence not specified H66.001 [place] [address] [address] Jan, Encounter for immunization Z23 [place] [address] [address] Dec, Crohn's disease of both small and large intestine with complication K50.819 and Eustachian tube dysfunction, right H69.81 [place] [address] [address] Dec, [place] [address] [address] Dec, Contusion of right knee, initial encount er S80.01XA [place] [address] [address] Dec, [place] [address] [address] 13 Dec, 2016 Acute pain of right knee M25.561 [place] [address] [address] Dec, Iron deficiency anemia due to chronic bl ood loss D50.0 [place] [address] [address] Dec, Hyperlipidemia E78.5 ; Type 2 diabetes m ellitus without complication E11.9 ; Vitamin B12 deficiency E53.8 ; Essential hypertension I10 ; Obstructive sleep apnea on CPAP G47.33 and Periodic limb movement sleep disorder G47.61 [place] [address] [address] 22 Nov, 2016 Type 2 diabetes mellitus without complic ation E11.9 ; Vitamin B12 deficiency E53.8 ; Hyperlipidemia E78.5 ; Essential hypertension I10 ; Obstructive sleep apnea on CPAP G47.33 ; Periodic limb movement sleep disorder G47.61 ; Anxiety F41.9 ; Acquired hypothyroidism E03.9 and Chronic tension-type headache, intractable G44.221 [place] [address] [address] Nov, Crohn's disease of both small and large intestine with complication K50.819 [place] [address] [address] Nov, Vitamin B12 deficiency E53.8 [place] [address] [address] Oct, [place] [address] [address] Oct, Vitamin B12 deficiency E53.8 [place] [address] [address] Sep, [place] [address] [address] Sep, Vitamin B12 deficiency E53.8 [place] [address] [address] Aug, [place] [address] [address] Aug, Vitamin B12 deficiency E53.8 [place] [address] [address] Aug, [place] [address] [address] 24 Jul, 2016 Elevated ALT measurement R74.0 [place] [address] [address] Jul, Hematuria R31.9 ; Acute right-sided thor acic back pain M54.6 ; Major depressive disorder, recurrent episode, moderate F33.1 and Elevated ALT measurement R74.0 [place] [address] [address] Jul, [place] [address] [address] Jul, Elevated ALT measurement R74.0 [place] [address] [address] 14 Jul, 2016 Iron deficiency anemia due to chronic bl ood loss D50.0 [place] [address] [address] 14 Jul, 2016 Type 2 diabetes mellitus without complic ation E11.9 ; Acquired hypothyroidism E03.9 ; Iron deficiency anemia due to chronic blood loss D50.0 ; Hyperlipidemia E78.5 and Essential hypertension I10 [place] [address] [place] [id number] [place] [address] Jun, [place] [address] [address] 20 Jun, 2016 Vitamin B12 deficiency E53.8 [place] [address] [place] [id number] [place] [address] 16 Jun, 2016 Type 2 diabetes mellitus without complic ation E11.9 ; Acquired hypothyroidism E03.9 ; Iron deficiency anemia due to chronic blood loss D50.0 ; Hyperlipidemia E78.5 ; Essential hypertension I10 ; Chronic tension-type headache, intractable G44.221 ; Pulsatile tinnitus, bilateral H93.13 ; Obstructive sleep apnea on CPAP G47.33 and Major depressive disorder, recurrent episode, moderate F33.1 [place] [address] [address] 16 May, 2016 Vitamin B12 deficiency E53.8 [place] [address] [address] 08 May, 2016 [place] [address] [address] Apr, Vitamin B12 deficiency E53.8 [place] [address] [address] 05 Apr, 2016 [place] [address] [address] Mar, Chronic tension-type headache, intractab le G44.221 and Major depressive disorder, recurrent episode, moderate F33.1 [place] [address] [address] 14 Mar, 2016 Vitamin B12 deficiency E53.8 [place] [address] [address] February, [place] [address] [address] February, Vitamin B12 deficiency E53.8 [place] [address] [address] February, [place] [address] [address] Jan, Dysuria R30.0 [place] [address] [address] 22 Jan, 2016 Type 2 diabetes mellitus without complic ation E11.9 and Essential hypertension I10 [place] [address] [address] 15 Jan, 2016 Chronic diarrhea K52.9 [facility] [address] [address] 13 Jan, 2016 [facility] [address] [address] 12 Jan, 2016 Chronic diarrhea K52.9 [place] [address] [address] Jan, [place] [address] [address] Jan, Dysuria R30.0 [place] [address] [address] Jan, Vitamin B12 deficiency E53.8 [place] [address] [address] 07 Jan, 2016 Dysuria R30.0 and Iron deficiency anemia due to chronic blood loss D50.0 [place] [address] [address] 05 Jan, 2016 Dysuria R30.0 [place] [address] [address] 04 Jan, 2016 [place] [address] [address] 15 Dec, 2015 [place] [address] [address] Dec, Iron deficiency anemia due to chronic bl ood loss D50.0 [place] [address] [address] 10 Dec, 2015 Dysuria R30.0 ; Fatigue R53.83 ; Hyperli pidemia E78.5 and Diarrhea R19.7 [place] [address] [address] 09 Dec, 2015 [place] [address] [address] 02 Dec, 2015 [place] [address] [address] 10 Nov, 2015 Vitamin B12 deficiency E53.8 [facility] [address] [address] Oct, Vitamin B12 deficiency E53.8 [facility] [address] [address] Oct, [facility] [address] [facility] [id number] [address] [place] [address] 09 Oct, 2015 Headache R51 [facility] [address] [address] 07 Oct, 2015 Essential hypertension I10 ; Type 2 diab etes mellitus without complication E11.9 ; Vitamin B12 deficiency E53.8 ; Acquired hypothyroidism E03.9 ; Iron deficiency anemia due to chronic blood loss D50.0 and Hyperlipidemia E78.5 [place] [address] [address] Sep, Essential hypertension I10 ; Vitamin B12 deficiency E53.8 ; Iron deficiency anemia due to chronic blood loss D50.0 ; Type 2 diabetes mellitus without complication E11.9 ; Hyperlipidemia E78.5 and Acquired hypothyroidism E03.9 [place] [address] [address] Sep, [place] [address] [address] Sep, [place] [address] [address] Jul, [place] [address] [address] Jun, [place] [address] [address] Jun, [place] [address] [address] 15 Jun, 2015 Hyperlipidemia 272.4 ; Iron deficiency a nemia 280.9 ; Hypothyroidism 244.9 ; Diabetes mellitus without mention of complication, type II or unspecified type, not stated as uncontrolled 250.00 and Hypertension 401.9 [place] [address] [place] [id number] [place] [address] Jun, [facility] [address] [address] Jun, [facility] [address] [address] May, Hyperlipidemia 272.4 [facility] [address] [address] May, [facility] [address] [address] May, [facility] [address] [address] Apr, Diabetes mellitus without mention of com plication, type II or unspecified type, not stated as uncontrolled 250.00 ; Hypothyroidism 244.9 ; Hyperlipidemia 272.4 ; Pain in joint, lower leg 719.46 and RUQ pain 789.01 [facility] [address] [place] [id number] [place] [address] Mar, Sinusitis 473.9 [facility] [address] [address] Mar, [facility] [address] [address] Mar, [facility] [address] [address] Mar, Hematochezia 578.1 [facility] [address] [place] [id number] [place] [address] February, Sinusitis 473.9 [facility] [address] [address] February, [facility] [address] [address] 14 Jan, 2015 [facility] [address] [address] Jan, [facility] [address] [place] [id number] [facility] [place] [address] 24 Dec, 2014 [facility] [address] [facility] [id number] [place] [address] Dec, [facility] [address] [facility] [id number] [place] [address] Dec, [facility] [address] [id number] [place] [address] Dec, [facility] [address] [facility] [id number] [place] [address] Dec, [facility] [address] [facility] [id number] [place] [address] Dec, [facility] [address] [id number] [place] [address] Dec, [facility] [address] [id number] [place] [address] Dec, [facility] [address] [id number] [place] [address] Dec, [facility] [address] [id number] [place] [address] Dec, [facility] [address] [id number] [place] [address] Dec, [facility] [address] [id number] [place] [address] Nov, [facility] [address] [id number] [place] [address] Nov, [facility] [address] [facility] [id number] [place] [address] Nov, [facility] [address] [id number] [place] [address] Nov, [facility] [address] [id number] [place] [address] Oct, [facility] [address] [id number] [place] [address] Oct, [facility] [address] [id number] [place] [address] Oct, [facility] [address] [id number] [place] [address] Oct, [facility] [address] [id number] [place] [address] Oct, [facility] [address] [id number] [place] [address] Oct, [facility] [address] [id number] [place] [address] Sep, [facility] [address] [id number] [place] [address] Sep, [facility] [address] [id number] [place] [address] Sep, [facility] [place] [facility] [address] [id number] [place] [address] Sep, [facility] [place] [facility] [address] [id number] [place] [address] Sep, [facility] [place] [facility] [address] [id number] [place] [address] Sep, [facility] [place] [facility] [address] [id number] [place] [address] Sep, [facility] [place] [facility] [address] [id number] [place] [address] Aug, [facility] [place] [facility] [address] [id number] [place] [address] Aug, [facility] [place] [facility] [address] [id number] [place] [address] Aug, [facility] [place] [facility] [address] [id number] [place] [address] Aug, [facility] [place] [facility] [address] [id number] [place] [address] Aug, [facility] [place] [facility] [address] [id number] [place] [address] Aug, [facility] [place] [facility] [address] [id number] [place] [address] Aug, [facility] [place] [facility] [address] [id number] [place] [address] Aug, [facility] [place] [facility] [address] [id number] [place] [address] Aug, [facility] [place] [facility] [address] [id number] [place] [address] Aug, [facility] [place] [facility] [address] [id number] [place] [address] Aug, [facility] [place] [facility] [address] [id number] [place] [address] Aug, [facility] [place] [facility] [address] [id number] [place] [address] Aug, [facility] [place] [facility] [address] [id number] [place] [address] Aug, [facility] [place] [facility] [address] [id number] [place] [address] Jul, [facility] [place] [facility] [address] [id number] [place] [address] Jul, [facility] [place] [facility] [address] [id number] [place] [address] Jul, [facility] [place] [facility] [address] [id number] [place] [address] Jul, [facility] [place] [facility] [address] [id number] [place] [address] 24 Jun, 2014 [facility] [place] [facility] [address] [id number] [place] [address] 24 Jun, 2014 [facility] [place] [facility] [address] [id number] [place] [address] Jun, [facility] [place] [facility] [address] [id number] [place] [address] Jun, 2013 [facility] [place] [facility] [address] [id number] [place] [address] 19 Jun, 2013 [facility] [place] [facility] [address] [facility] [id number] [place] [address] 19 Jun, 2013 [facility] [place] [facility] [address] [facility] [id number] [place] [address] 11 Jun, 2013 [facility] [place] [facility] [address] [facility] [id number] [place] [address] Jun, 2013 [facility] [place] [facility] [address] [facility] [id number] [place] [address] Jun, 2013 [facility] [place] [facility] [address] [facility] [id number] [place] [address] Jun, [facility] [place] [facility] [address] [id number] [place] [address] Jun, [facility] [place] [facility] [address] [id number] [place] [address] Jun, [facility] [place] [facility] [address] [id number] [place] [address] Jun, [facility] [place] [facility] [address] [facility] [id number] [place] [address] Jun, [facility] [place] [facility] [address] [id number] [place] [address] 14 May, 2014 [facility] [place] [facility] [address] [id number] [place] [address] May, [facility] [place] [facility] [address] [facility] [id number] [place] [address] May, [facility] [place] [facility] [address] [facility] [id number] [place] [address] May, [facility] [place] [facility] [address] [id number] [place] [address] May, [facility] [place] [facility] [address] [id number] [place] [address] May, [facility] [place] [facility] [address] [id number] [place] [address] Apr, [facility] [place] [facility] [address] [id number] [facility] [place] [address] Apr, [facility] [place] [facility] [address] [id number] [place] [address] Apr, [facility] [place] [facility] [address] [facility] [id number] [facility] [place] [address] Apr, [facility] [place] [facility] [address] [id number] [place] [address] Apr, [facility] [place] [facility] [address] [facility] [id number] [place] [address] Apr, [facility] [place] [facility] [address] [id number] [facility] [place] [address] Apr, [facility] [place] [facility] [address] [facility] [id number] [place] [address] Apr, [facility] [place] [facility] [address] [id number] [place] [address] Apr, [facility] [place] [facility] [address] [facility] [id number] [facility] [place] [address] Apr, [facility] [place] [facility] [address] [id number] [place] [address] Apr, [facility] [place] [facility] [address] [id number] [place] [address] Mar, [facility] [place] [facility] [address] [id number] [place] [address] Mar, [facility] [place] [facility] [address] [facility] [id number] [place] [address] Mar, [facility] [place] [facility] [address] [facility] [id number] [place] [address] Mar, [facility] [place] [facility] [address] [facility] [id number] [place] [address] February, [facility] [place] [facility] [address] [id number] [place] [address] February, [facility] [place] [facility] [address] [id number] [facility] [place] [address] Jan, [facility] [address] [id number] [place] [address] Jan, [address] [facility] [address] [id number] [facility] [id number] Jan, [facility] [address] [id number] [facility] [place] [address] Jan, [facility] [place] [facility] [address] [id number] [facility] [place] [address] Jan, [facility] [place] [facility] [address] [id number] [facility] [place] [address] Jan, [facility] [place] [facility] [address] [id number] [place] [address] Jan, [facility] [address] [id number] [facility] [place] [address] Jan, [facility] [place] [facility] [address] [id number] [facility] [place] [address] Jan, [facility] [place] [facility] [address] [id number] [place] [address] Jan, [facility] [place] [facility] [address] [id number] [place] [address] Jan, [facility] [place] [facility] [address] [id number] [place] [address] Jan, [facility] [place] [facility] [address] [id number] [place] [address] Jan, [facility] [place] [facility] [address] [id number] [place] [address] Jan, [facility] [place] [facility] [address] [id number] [place] [address] Jan, [facility] [place] [facility] [address] [id number] [place] [address] Jan, [facility] [place] [facility] [address] [id number] [place] [address] Jan, [facility] [place] [facility] [address] [id number] [place] [address] Dec, [facility] [place] [facility] [address] [facility] [id number] [place] [address] Dec, [facility] [place] [facility] [address] [id number] [place] [address] Dec, [facility] [place] [facility] [address] [id number] [place] [address] Dec, [facility] [place] [facility] [address] [id number] [place] [address] Dec, [facility] [place] [facility] [address] [id number] [place] [address] Dec, [facility] [place] [facility] [address] [id number] [place] [address] Dec, [facility] [place] [facility] [address] [id number] [place] [address] Nov, [facility] [place] [facility] [address] [id number] [place] [address] Nov, [facility] [place] [facility] [address] [id number] [place] [address] Nov, [facility] [place] [facility] [address] [id number] [place] [address] Nov, [facility] [place] [facility] [address] [id number] [place] [address] Nov, [facility] [place] [facility] [address] [id number] [place] [address] Nov, [facility] [place] [facility] [address] [id number] [place] [address] Nov, [facility] [place] [facility] [address] [id number] [place] [address] Oct, [facility] [place] [facility] [address] [id number] [place] [address] Oct, [facility] [place] [facility] [address] [id number] [place] [address] Sep, [facility] [place] [facility] [address] [id number] [place] [address] Sep, [facility] [place] [facility] [address] [id number] [place] [address] Sep, [facility] [place] [facility] [address] [id number] [place] [address] Sep, [facility] [place] [facility] [address] [id number] [place] [address] Sep, [facility] [place] [facility] [address] [id number] [place] [address] Sep, [facility] [place] [facility] [address] [id number] [place] [address] Sep, [facility] [place] [facility] [address] [id number] [place] [address] Sep, [facility] [place] [facility] [address] [id number] [place] [address] Sep, [facility] [place] [facility] [address] [id number] [place] [address] Sep, [facility] [place] [facility] [address] [id number] [place] [address] Aug, [facility] [place] [facility] [address] [id number] [place] [address] Aug, [facility] [place] [facility] [address] [id number] [place] [address] Aug, [facility] [place] [facility] [address] [id number] [place] [address] Aug, [facility] [place] [facility] [address] [id number] [place] [address] Aug, [facility] [place] [facility] [address] [id number] [place] [address] Jul, [facility] [place] [facility] [address] [id number] [place] [address] Jul, [facility] [place] [facility] [address] [id number] [place] [address] Jul, [facility] [address] [facility] [id number] [place] [address] Jul, IMMUNIZATIONS No Known Immunizations SOCIAL HISTORY Never Assessed REASON FOR VISIT PLAN OF CARE VITAL SIGNS MEDICATIONS Unknown Medications RESULTS No Results PROCEDURES Procedure Date Ordered Result Body Site COMPLETE CBC W/AUTO DIFF WBC Dec 06, 2013 VENIPUNCT, ROUTINE* Dec 06, 2013 INSTRUCTIONS MEDICATIONS ADMINISTERED No Known Medications MEDICAL [...]
--- OUTSIDE RECORDS SUMMARY | 2020-03-16 11:44 | XMS REPORT ---
Author Author Swathi Benavides Organization [facility] Address [address] [place] [address] Care Team Providers Care Hospitality Associate Name Role Phone WIL Benavides Unavailable PROBLEMS Type Condition ICD9-CM Code SPS38-CX Code Onset Dates Condition S tatus SNOMED Code Problem Sensorineural hearing loss of right ear H90.41 Active 72975869 Problem Obstructive sleep apnea on CPAP G47.33 Active 75906130 Problem Periodic limb movement sleep disorder G47.61 Active 305576574 Problem Iron deficiency anemia due to chronic blood loss D 50.0 Active 23010170 Problem MACHUCA (nonalcoholic steatohepatitis) K75.81 Active 800834435 Problem Vitamin B12 deficiency E53.8 Active 860292922 Problem Chronic diarrhea K52.9 Active 236 277740 Problem Vitamin D deficiency E55.9 Active 70904030 Problem BMI 50.0-59.9, adult Z68.43 Active 492782686 Problem Fatty liver K76.0 Active 63816481 7 Problem Anxiety F41.9 Active 93296519 Problem Major depressive disorder, recurrent episode, moderate F33.1 Active 026542855 Problem Chronic tension-type headache, intractable G44.221 Active 164761504 Problem Right upper quadrant pain R10.11 Acti ve 05911865 Problem Frequent falls R29.6 Active 66487 2001 Problem Crohn's disease of both small and large intestin e with complication K50.819 Active 53816167 Problem Type 2 diabetes mellitus with other specified complication E11.69 Active 722563132619 Problem Hyperlipidemia, unspecified E78.5 Ac tive 34411911 Problem Mixed stress and urge urinary incontinence N39.46 Active 806616219 Problem Sinusitis chronic, frontal J32.1 Act katlyn 05483205 Problem Seasonal allergies J30.2 Active 4 17476388 Problem Other chronic pain G89.29 Active 8 9758771 Problem Hyperlipidemia E78.5 Active 19503 004 Problem Bilateral primary osteoarthritis of knee M17.0 Active 554235282 Problem Essential hypertension I10 Active 89210454 Problem Acquired hypothyroidism E03.9 Active 912038891 Problem History of hysterectomy for benign disease Z90.710 Active 183256173 Problem Morbid (severe) obesity due to excess calories E66 .01 Active 156699911 Problem Other cirrhosis of liver K74.69 Activ e 64107640 Problem Portal hypertension K76.6 Active 21272037 ALLERGIES No Information ENCOUNTERS Encounter Location Date Diagnosis [place] [address] [address] 09 Jan, 2020 [place] [address] [address] 16 Dec, 2019 [place] [address] [address] Nov, MACHUCA (nonalcoholic steatohepatitis) K75. 81 ; BMI 50.0-59.9, adult Z68.43 and Type 2 diabetes mellitus with other specified complication E11.69 [place] [address] [address] Oct, Morbid (severe) obesity due to excess ca lories E66.01 and Type 2 diabetes mellitus with other specified complication E11.69 [place] [address] [address] Oct, Essential hypertension I10 ; BMI 50.0-59 .9, adult Z68.43 and Morbid (severe) obesity due to excess calories E66.01 [place] [address] [address] Oct, Encounter for Medicare annual wellness e [...] E78.5 and Other cirrhosis of liver K74.69 [place] [address] [place] [id number] [place] [address] Oct, [place] [address] [address] Sep, Major depressive disorder, recurrent epi sode, moderate F33.1 ; Vitamin B12 deficiency E53.8 ; BMI 50.0-59.9, adult Z68.43 and Essential hypertension I10 [place] [address] [place] [id number] [place] [address] Sep, Breast pain, right N64.[address] [place] [address] Sep, Breast pain, right N64.[address] [place] [address] Sep, Breast pain, right N64.[address] [place] [address] Sep, Breast pain, right N64.4 [place] [address] [place] [address] [id number] [place] [address] Aug, [address] [address] Aug, Major depressive disorder, recurrent epi sode, moderate F33.1 ; BMI 50.0-59.9, adult Z68.43 ; Type 2 diabetes mellitus without complication E11.9 ; Breast pain, right N64.4 and Encounter for screening mammogram for breast cancer Z12.31 [facility] [address] [place] [address] Jun, Pneumonia of right middle lo be due to infectious organism J18.1 and Cough R05 [facility] [address] [place] [address] Jun, Acute nasopharyngitis J00 [place] [address] [place] [id number] [place] [address] May, Iron deficiency anemia due to chronic [...] Major depressive disorder, recurrent episode, moderate F33.[address] [address] May, Hyperlipidemia, unspecified E78.5 ; Othe r cirrhosis of liver K74.69 and Iron deficiency anemia due to chronic blood loss D50.[address] [address] February, [facility] [address] [facility] [address] [place] [address] February, Acute recurrent pansinusitis J01.41 [facility] [address] [place] [address] February, Acute maxillary sinusitis, r ecurrence not specified J01.[address] [address] Jan, Bilateral primary osteoarthritis of knee M17.0 ; Morbid obesity E66.01 ; Viral syndrome B34.9 and Atrial dilatation, left I51.[address] [address] Jan, [address] [address] Dec, Trigeminy R00.[address] [address] Dec, Essential hypertension I10 ; Morbid obes ity E66.01 ; Low back pain M54.5 ; Other chronic pain G89.29 and Pain in right knee M25.[address] [address] Nov, [facility] [address] [place] [id number] [place] [address] Oct, Palpitations R00.2 [place] [address] [address] Oct, Encounter for Medicare annual wellness e [...] small and large intestine with complication K50.819 [place] [address] [address] Oct, [place] [address] [address] Oct, Crohn's disease of both small and large intestine with complication K50.819 [facility] [address] [facility] [id number] [place] [address] Jul, Sinusitis chronic, frontal J 32.1 ; Acute mucoid otitis media of both ears H65.113 ; Seasonal allergies J30.2 and BMI 50.0-59.9, adult Z68.43 [place] [address] [address] Jul, Essential hypertension I10 ; Type 2 diab etes mellitus with other specified complication E11.69 ; BMI 50.0-59.9, adult Z68.43 ; Mixed stress and urge urinary incontinence N39.46 and Mid back pain on right side M54.[address] [address] Jun, Iron deficiency anemia due to chronic bl ood loss D50.0 ; Hyperlipidemia E78.5 ; Type 2 diabetes mellitus with other specified complication E11.69 ; Vitamin B12 deficiency E53.8 and Vitamin D deficiency E55.9 [facility] [address] [facility] [id number] [address] [place] [address] Jun, Cough R05 and BMI 50.0-59.9, adult Z68.43 [place] [address] [address] Jun, [place] [address] [address] May, Iron deficiency anemia due to chronic bl ood loss D50.0 ; Chronic diarrhea K52.9 ; Essential hypertension I10 ; Type 2 diabetes mellitus with other specified complication E11.69 ; Vitamin D deficiency E55.9 ; Colon stricture K56.699 ; Vitamin B12 deficiency E53.8 ; Hyperlipidemia E78.5 and BMI 50.0-59.9, adult Z68.[address] [address] May, [place] [address] [address] Apr, Nonhealing wound of heel S91.309A and Christopher dy mass index (BMI) of 50-59.9 in adult Z68.[address] [address] Mar, [address] [address] Mar, BMI 50.0-59.9, adult Z68.43 ; Flank pain R10.9 and Weight loss counseling, encounter for Z71.[address] [address] February, [place] [address] [address] Jan, [place] [address] [address] Jan, [facility] [address] [place] [address] Jan, Diarrhea due to staphylococc us A04.8 and Diarrhea, unspecified type R19.7 [place] [address] [address] Jan, Acquired hypothyroidism E03.9 ; Type 2 d iabetes mellitus with other specified complication E11.69 ; Hyperlipidemia E78.5 ; Essential hypertension I10 ; Major depressive disorder, recurrent episode, moderate F33.1 and Vitamin D deficiency E55.9 [place] [address] [address] Jan, Type 2 diabetes mellitus with other spec ified complication E11.69 ; Hyperlipidemia E78.5 ; Essential hypertension I10 ; Acquired hypothyroidism E03.9 ; Major depressive disorder, recurrent episode, moderate F33.1 ; Vitamin D deficiency E55.9 ; Sinus congestion R09.81 and BMI 50.0-59.9, adult Z68.43 [place] [address] [address] Dec, [place] [address] [address] Sep, Encounter for immunization Z23 [place] [address] [address] Sep, [place] [address] [address] Sep, Vitamin B12 deficiency E53.8 [place] [address] [address] Aug, [place] [address] [address] Aug, BMI 60.0-69.9, adult Z68.44 and Acute no n-recurrent maxillary sinusitis J01.00 [place] [address] [address] Aug, [place] [address] [address] Aug, Medicare annual wellness visit, initial Z00.00 ; Screening for breast cancer Z12.31 ; BMI 40.0-44.9, adult Z68.41 and Acquired hypothyroidism E03.9 [place] [address] [address] Jul, Actinic keratosis L57.0 [place] [address] [address] Jul, Actinic keratosis L57.0 [place] [address] [address] Jul, Type 2 diabetes mellitus with other spec ified complication E11.69 ; Actinic keratosis L57.0 and Hypothyroidism, unspecified E03.9 [place] [address] [address] Jul, [place] [address] [address] Jul, [place] [address] [address] Jul, Vitamin B12 deficiency E53.8 [place] [address] [address] Jun, Acquired hypothyroidism E03.9 and Chroni c tension-type headache, intractable G44.[address] [address] Jun, Back muscle spasm M62.830 and BMI 50.0-5 9.9, adult Z68.43 [place] [address] [address] Jun, Vitamin B12 deficiency E53.[address] [address] Jun, Crohn's disease of both small and large intestine with complication K50.[address] [address] Jun, Crohn's disease of both small and large intestine with complication K50.819 [place] [address] [address] May, Hyperlipidemia E78.5 ; Anxiety F41.9 and Essential hypertension I10 [place] [address] [address] May, [place] [address] [address] May, Encounter for immunization Z23 and Vitam in B12 deficiency E53.8 [place] [address] [address] May, [place] [address] [address] Apr, [place] [address] [address] Apr, [place] [address] [address] Apr, Crohn's disease of both small and large intestine with complication K50.819 [place] [address] [address] Apr, Vitamin B12 deficiency E53.8 [place] [address] [address] Apr, Crohn's disease of both small and large intestine with complication K50.819 and Acute pain of right shoulder M25.511 [place] [address] [address] Mar, Type 2 diabetes mellitus without complic ation E11.9 ; Frequent falls R29.6 and Other chest pain R07.89 [place] [address] [address] Mar, [place] [address] [address] Mar, [place] [address] [address] Mar, Type 2 diabetes mellitus without complic ation E11.9 and Blurry vision, bilateral H53.8 [place] [address] [address] Mar, Vitamin B12 deficiency E53.8 [facility] [address] [address] Mar, Crohn's disease of both small and large intestine with complication K50.819 [place] [address] [address] February, Vitamin B12 deficiency E53.8 [place] [address] [address] Jan, Crohn's disease of both small and large intestine with complication K50.819 [place] [address] [address] Jan, Crohn's disease of both small and large intestine with complication K50.819 [facility] [address] [facility] [id number] [address] [place] [address] Jan, Dark brown-colored urine R82 .99 and Acute suppurative otitis media of right ear without spontaneous rupture of tympanic membrane, recurrence not specified H66.001 [place] [address] [address] Jan, Encounter for immunization Z23 [place] [address] [address] Dec, Crohn's disease of both small and large intestine with complication K50.819 and Eustachian tube dysfunction, right H69.81 [place] [address] [address] Dec, [place] [address] [address] Dec, Contusion of right knee, initial encount er S80.01XA [place] [address] [address] Dec, [place] [address] [address] Dec, Acute pain of right knee M25.561 [place] [address] [address] Dec, Iron deficiency anemia due to chronic bl ood loss D50.0 [place] [address] [address] Dec, Hyperlipidemia E78.5 ; Type 2 diabetes m ellitus without complication E11.9 ; Vitamin B12 deficiency E53.8 ; Essential hypertension I10 ; Obstructive sleep apnea on CPAP G47.33 and Periodic limb movement sleep disorder G47.61 [place] [address] [address] 22 Nov, 2016 Type 2 diabetes mellitus without complic ation E11.9 ; Vitamin B12 deficiency E53.8 ; Hyperlipidemia E78.5 ; Essential hypertension I10 ; Obstructive sleep apnea on CPAP G47.33 ; Periodic limb movement sleep disorder G47.61 ; Anxiety F41.9 ; Acquired hypothyroidism E03.9 and Chronic tension-type headache, intractable G44.221 [place] [address] [address] 10 Nov, 2016 Crohn's disease of both small and large intestine with complication K50.819 [place] [address] [address] Nov, Vitamin B12 deficiency E53.8 [place] [address] [address] Oct, [place] [address] [address] Oct, Vitamin B12 deficiency E53.8 [place] [address] [address] Sep, [place] [address] [address] Sep, Vitamin B12 deficiency E53.8 [place] [address] [address] Aug, [place] [address] [address] Aug, Vitamin B12 deficiency E53.8 [place] [address] [address] Aug, [place] [address] [address] Jul, Elevated ALT measurement R74.0 [place] [address] [address] Jul, Hematuria R31.9 ; Acute right-sided thor acic back pain M54.6 ; Major depressive disorder, recurrent episode, moderate F33.1 and Elevated ALT measurement R74.0 [place] [address] [address] Jul, [place] [address] [address] Jul, Elevated ALT measurement R74.0 [place] [address] [address] Jul, Iron deficiency anemia due to chronic bl ood loss D50.0 [place] [address] [address] Jul, Type 2 diabetes mellitus without complic ation E11.9 ; Acquired hypothyroidism E03.9 ; Iron deficiency anemia due to chronic blood loss D50.0 ; Hyperlipidemia E78.5 and Essential hypertension I10 [place] [address] [address] Jun, [place] [address] [address] Jun, Vitamin B12 deficiency E53.8 [place] [address] [address] 16 Jun, 2016 Type 2 diabetes mellitus without complic ation E11.9 ; Acquired hypothyroidism E03.9 ; Iron deficiency anemia due to chronic blood loss D50.0 ; Hyperlipidemia E78.5 ; Essential hypertension I10 ; Chronic tension-type headache, intractable G44.221 ; Pulsatile tinnitus, bilateral H93.13 ; Obstructive sleep apnea on CPAP G47.33 and Major depressive disorder, recurrent episode, moderate F33.1 [place] [address] [address] 16 May, 2016 Vitamin B12 deficiency E53.8 [place] [address] [address] May, [place] [address] [address] Apr, Vitamin B12 deficiency E53.8 [place] [address] [address] Apr, [place] [address] [address] Mar, Chronic tension-type headache, intractab le G44.221 and Major depressive disorder, recurrent episode, moderate F33.1 [place] [address] [address] 14 Mar, 2016 Vitamin B12 deficiency E53.8 [place] [address] [address] February, [place] [address] [address] February, Vitamin B12 deficiency E53.8 [place] [address] [address] February, [place] [address] [address] Jan, Dysuria R30.0 [place] [address] [address] Jan, Type 2 diabetes mellitus without complic ation E11.9 and Essential hypertension I10 [place] [address] [address] 15 Jan, 2016 Chronic diarrhea K52.9 [place] [address] [address] 13 Jan, 2016 [facility] [address] [address] 12 Jan, 2016 Chronic diarrhea K52.9 [place] [address] [address] Jan, [place] [address] [address] Jan, Dysuria R30.0 [place] [address] [address] 07 Jan, 2016 Vitamin B12 deficiency E53.8 [place] [address] [address] 07 Jan, 2016 Dysuria R30.0 and Iron deficiency anemia due to chronic blood loss D50.0 [place] [address] [address] 05 Jan, 2016 Dysuria R30.0 [place] [address] [address] 04 Jan, 2016 [place] [address] [address] 15 Dec, 2015 [place] [address] [address] Dec, Iron deficiency anemia due to chronic bl ood loss D50.0 [place] [address] [address] 10 Dec, 2015 Dysuria R30.0 ; Fatigue R53.83 ; Hyperli pidemia E78.5 and Diarrhea R19.7 [place] [address] [address] 09 Dec, 2015 [place] [address] [address] Dec, [facility] [address] [address] Nov, Vitamin B12 deficiency E53.8 [place] [address] [address] Oct, Vitamin B12 deficiency E53.8 [facility] [address] [address] Oct, [facility] [address] [facility] [id number] [address] [address] 09 Oct, 2015 Headache R51 [place] [address] [address] 07 Oct, 2015 Essential hypertension I10 ; Type 2 diab etes mellitus without complication E11.9 ; Vitamin B12 deficiency E53.8 ; Acquired hypothyroidism E03.9 ; Iron deficiency anemia due to chronic blood loss D50.0 and Hyperlipidemia E78.5 [place] [address] [address] Sep, Essential hypertension I10 ; Vitamin B12 deficiency E53.8 ; Iron deficiency anemia due to chronic blood loss D50.0 ; Type 2 diabetes mellitus without complication E11.9 ; Hyperlipidemia E78.5 and Acquired hypothyroidism E03.9 [facility] [address] [address] Sep, [place] [address] [address] Sep, [facility] [address] [address] Jul, [facility] [address] [address] Jun, [place] [address] [address] 18 Jun, 2015 [facility] [address] [address] 15 Jun, 2015 Hyperlipidemia 272.4 ; Iron deficiency a nemia 280.9 ; Hypothyroidism 244.9 ; Diabetes mellitus without mention of complication, type II or unspecified type, not stated as uncontrolled 250.[address] [facility] [address] [address] Jun, [facility] [address] [address] Jun, [facility] [address] [address] May, Hyperlipidemia 272.4 [facility] [address] [address] May, [facility] [address] [address] May, [facility] [address] [address] Apr, Diabetes mellitus without mention of com plication, type II or unspecified type, not stated as uncontrolled 250.00 ; Hypothyroidism 244.9 ; Hyperlipidemia 272.4 ; Pain in joint, lower leg 719.46 and RUQ pain 789.01 [facility] [address] [address] Mar, Sinusitis 473.9 [facility] [address] [address] Mar, [facility] [address] [address] Mar, [facility] [address] [address] Mar, Hematochezia 578.1 [facility] [address] [address] February, Sinusitis 473.9 [facility] [address] [address] February, [facility] [address] [address] Jan, [facility] [address] [place] [id number] [facility] [address] 13 Jan, 2015 [facility] [address] [facility] [id number] [place] [address] Dec, [facility] [address] [facility] [id number] [place] [address] Dec, [facility] [address] [id number] [place] [address] Dec, [facility] [address] [facility] [id number] [place] [address] Dec, [facility] [address] [facility] [id number] [place] [address] Dec, [facility] [address] [id number] [place] [address] Dec, [facility] [address] [id number] [place] [address] Dec, [facility] [address] [id number] [place] [address] Dec, [facility] [address] [facility] [id number] [place] [address] Dec, [facility] [address] [id number] [place] [address] Dec, [facility] [address] [id number] [place] [address] Dec, [facility] [address] [id number] [place] [address] Nov, [facility] [address] [facility] [id number] [place] [address] Nov, [facility] [address] [id number] [place] [address] Nov, [facility] [address] [id number] [place] [address] Nov, [facility] [address] [id number] [place] [address] Oct, [facility] [address] [id number] [place] [address] Oct, [facility] [address] [id number] [place] [address] Oct, [facility] [address] [id number] [place] [address] Oct, [facility] [address] [id number] [place] [address] Oct, [facility] [address] [id number] [place] [address] Oct, [facility] [address] [id number] [place] [address] Sep, [facility] [address] [id number] [place] [address] Sep, [facility] [address] [id number] [place] [address] Sep, [facility] [address] [id number] [place] [address] Sep, [facility] [address] [id number] [place] [address] Sep, [facility] [address] [id number] [place] [address] Sep, [facility] [address] [id number] [place] [address] Sep, [facility] [place] [facility] [address] [id number] [place] [address] Aug, [facility] [place] [facility] [address] [id number] [place] [address] Aug, [facility] [place] [facility] [address] [id number] [place] [address] Aug, [facility] [place] [facility] [address] [id number] [place] [address] Aug, [facility] [place] [facility] [address] [id number] [place] [address] Aug, [facility] [place] [facility] [address] [id number] [place] [address] Aug, [facility] [place] [facility] [address] [id number] [place] [address] Aug, [facility] [place] [facility] [address] [id number] [place] [address] Aug, [facility] [place] [facility] [address] [id number] [place] [address] Aug, [facility] [place] [facility] [address] [id number] [place] [address] Aug, [facility] [place] [facility] [address] [id number] [place] [address] Aug, [facility] [place] [facility] [address] [id number] [place] [address] Aug, [facility] [place] [facility] [address] [id number] [place] [address] Aug, [facility] [place] [facility] [address] [id number] [place] [address] Aug, [facility] [place] [facility] [address] [id number] [place] [address] Jul, [facility] [place] [facility] [address] [id number] [place] [address] Jul, [facility] [place] [facility] [address] [id number] [place] [address] Jul, [facility] [place] [facility] [address] [id number] [place] [address] Jul, [facility] [place] [facility] [address] [id number] [place] [address] 24 Jun, 2014 [facility] [place] [facility] [address] [id number] [place] [address] 24 Jun, 2014 [facility] [place] [facility] [address] [id number] [place] [address] Jun, [facility] [place] [facility] [address] [id number] [place] [address] 23 Jun, 2013 [facility] [place] [facility] [address] [id number] [place] [address] 19 Jun, 2013 [facility] [place] [facility] [address] [facility] [id number] [place] [address] 19 Jun, 2013 [facility] [place] [facility] [address] [facility] [id number] [place] [address] 11 Jun, 2013 [facility] [place] [facility] [address] [facility] [id number] [place] [address] 11 Jun, 2013 [facility] [place] [facility] [address] [id number] [place] [address] 11 Jun, 2013 [facility] [place] [facility] [address] [id number] [place] [address] 11 Jun, 2013 [facility] [place] [facility] [address] [id number] [place] [address] 10 Jun, 2013 [facility] [place] [facility] [address] [id number] [place] [address] 10 Jun, 2013 [facility] [place] [facility] [address] [facility] [id number] [place] [address] 09 Jun, 2014 [facility] [place] [facility] [address] [id number] [place] [address] 09 Jun, 2013 [facility] [place] [facility] [address] [id number] [place] [address] 14 May, 2014 [facility] [place] [facility] [address] [facility] [id number] [place] [address] 14 May, 2014 [facility] [place] [facility] [address] [id number] [place] [address] May, [facility] [place] [facility] [address] [id number] [place] [address] May, [facility] [place] [facility] [address] [facility] [id number] [place] [address] May, [facility] [place] [facility] [address] [id number] [place] [address] May, [facility] [place] [facility] [address] [id number] [facility] [place] [address] Apr, [facility] [place] [facility] [address] [facility] [id number] [place] [address] Apr, [facility] [place] [facility] [address] [facility] [id number] [place] [address] Apr, [facility] [place] [facility] [address] [id number] [facility] [place] [address] Apr, [facility] [place] [facility] [address] [facility] [id number] [place] [address] Apr, [facility] [place] [facility] [address] [facility] [id number] [place] [address] Apr, [facility] [place] [facility] [address] [facility] [id number] [place] [address] Apr, [facility] [place] [facility] [address] [id number] [place] [address] Apr, [facility] [place] [facility] [address] [facility] [id number] [place] [address] Apr, [facility] [place] [facility] [address] [id number] [place] [address] Apr, [facility] [place] [facility] [address] [id number] [place] [address] Apr, [facility] [place] [facility] [address] [id number] [place] [address] Mar, [facility] [place] [facility] [address] [facility] [id number] [place] [address] Mar, [facility] [place] [facility] [address] [id number] [place] [address] Mar, [facility] [place] [facility] [address] [facility] [id number] [place] [address] Mar, [facility] [place] [facility] [address] [id number] [place] [address] February, [facility] [place] [facility] [address] [id number] [facility] [place] [address] February, [facility] [address] [id number] [facility] [place] [address] Jan, [facility] [place] [facility] [address] [id number] [place] [address] Jan, [facility] [address] [facility] [id number] Jan, [facility] [place] [facility] [address] [id number] [facility] [place] [address] Jan, [facility] [place] [facility] [address] [id number] [facility] [place] [address] Jan, [facility] [place] [facility] [address] [id number] [place] [address] Jan, [facility] [place] [facility] [address] [id number] [place] [address] Jan, [facility] [place] [facility] [address] [id number] [facility] [place] [address] Jan, [facility] [place] [facility] [address] [id number] [place] [address] Jan, [facility] [place] [facility] [address] [id number] [facility] [place] [address] Jan, [facility] [place] [facility] [address] [id number] [place] [address] Jan, [facility] [place] [facility] [address] [id number] [place] [address] Jan, [facility] [place] [facility] [address] [id number] [place] [address] Jan, [facility] [place] [facility] [address] [id number] [place] [address] Jan, [facility] [place] [facility] [address] [id number] [place] [address] Jan, [facility] [place] [facility] [address] [id number] [place] [address] Jan, [facility] [place] [facility] [address] [id number] [place] [address] Jan, [facility] [place] [facility] [address] [facility] [id number] [place] [address] Dec, [facility] [place] [facility] [address] [id number] [place] [address] Dec, [facility] [place] [facility] [address] [id number] [place] [address] Dec, [facility] [place] [facility] [address] [id number] [place] [address] Dec, [facility] [place] [facility] [address] [id number] [place] [address] Dec, [facility] [place] [facility] [address] [id number] [place] [address] Dec, [facility] [place] [facility] [address] [id number] [place] [address] Dec, [facility] [place] [facility] [address] [id number] [place] [address] Nov, [facility] [place] [facility] [address] [id number] [place] [address] Nov, [facility] [place] [facility] [address] [id number] [place] [address] Nov, [facility] [place] [facility] [address] [id number] [place] [address] Nov, [facility] [place] [facility] [address] [id number] [place] [address] Nov, [facility] [place] [facility] [address] [id number] [place] [address] Nov, [facility] [place] [facility] [address] [id number] [place] [address] Nov, [facility] [place] [facility] [address] [id number] [place] [address] Oct, [facility] [place] [facility] [address] [id number] [place] [address] Oct, [facility] [place] [facility] [address] [id number] [place] [address] Sep, [facility] [place] [facility] [address] [id number] [place] [address] Sep, [facility] [place] [facility] [address] [id number] [place] [address] Sep, [facility] [place] [facility] [address] [id number] [place] [address] Sep, [facility] [place] [facility] [address] [id number] [place] [address] Sep, [facility] [place] [facility] [address] [id number] [place] [address] Sep, [facility] [place] [facility] [address] [id number] [place] [address] Sep, [facility] [place] [facility] [address] [id number] [place] [address] Sep, [facility] [place] [facility] [address] [id number] [place] [address] Sep, [facility] [place] [facility] [address] [id number] [place] [address] Sep, [facility] [place] [facility] [address] [id number] [place] [address] Aug, [facility] [place] [facility] [address] [id number] [place] [address] Aug, [facility] [place] [facility] [address] [id number] [place] [address] Aug, [facility] [place] [facility] [address] [id number] [place] [address] Aug, [facility] [place] [facility] [address] [id number] [place] [address] Aug, [facility] [place] [facility] [address] [id number] [place] [address] Jul, [facility] [place] [facility] [address] [id number] [place] [address] 30 Jul, 2013 [facility] [address] [id number] [place] [address] Jul, [facility] [address] [id number] [place] [address] Jul, IMMUNIZATIONS No Known Immunizations SOCIAL HISTORY [...]
--- OUTSIDE RECORDS SUMMARY | 2020-03-16 11:44 | XMS REPORT ---
Author Author Swathi HAYNES [facility] Address [address] [place] [address] Care Team Providers Care Facilities Locator Name Role Phone ROMEL HAYNES Unavailable PROBLEMS Type Condition ICD9-CM Code ODX32-EK Code Onset Dates Condition S tatus SNOMED Code Problem Sensorineural hearing loss of right ear H90.41 Active 17231233 Problem Obstructive sleep apnea on CPAP G47.33 Active 54864455 Problem Periodic limb movement sleep disorder G47.61 Active 844095144 Problem Iron deficiency anemia due to chronic blood loss D 50.0 Active 52577890 Problem MACHUCA (nonalcoholic steatohepatitis) K75.81 Active 070740389 Problem Vitamin B12 deficiency E53.8 Active 605150532 Problem Chronic diarrhea K52.9 Active 236 254917 Problem Vitamin D deficiency E55.9 Active 90705402 Problem BMI 50.0-59.9, adult Z68.43 Active 049990889 Problem Fatty liver K76.0 Active 44647468 7 Problem Anxiety F41.9 Active 84437075 Problem Major depressive disorder, recurrent episode, moderate F33.1 Active 496777780 Problem Chronic tension-type headache, intractable G44.221 Active 861794380 Problem Right upper quadrant pain R10.11 Acti ve 62898736 Problem Frequent falls R29.6 Active 01633 2001 Problem Crohn's disease of both small and large intestin e with complication K50.819 Active 58518664 Problem Type 2 diabetes mellitus with other specified complication E11.69 Active 203544357689 Problem Hyperlipidemia, unspecified E78.5 Ac tive 15979523 Problem Mixed stress and urge urinary incontinence N39.46 Active 382950253 Problem Sinusitis chronic, frontal J32.1 Act katlyn 87937992 Problem Seasonal allergies J30.2 Active 4 81373611 Problem Other chronic pain G89.29 Active 8 2913160 Problem Hyperlipidemia E78.5 Active 42786 004 Problem Bilateral primary osteoarthritis of knee M17.0 Active 371424182 Problem Essential hypertension I10 Active 51357627 Problem Acquired hypothyroidism E03.9 Active 466116989 Problem History of hysterectomy for benign disease Z90.710 Active 248007226 Problem Morbid (severe) obesity due to excess calories E66 .01 Active 351172768 Problem Other cirrhosis of liver K74.69 Activ e 35131043 Problem Portal hypertension K76.6 Active 33742038 ALLERGIES No Information ENCOUNTERS Encounter Location Date Diagnosis [place] [address] [address] Jan, [place] [address] [address] Nov, MACHUCA (nonalcoholic steatohepatitis) K75. 81 ; BMI 50.0-59.9, adult Z68.43 and Type 2 diabetes mellitus with other specified complication E11.69 [place] [address] [address] Oct, Morbid (severe) obesity due to excess ca lories E66.01 and Type 2 diabetes mellitus with other specified complication E11.69 [place] [address] [address] Oct, Essential hypertension I10 ; BMI 50.0-59 .9, adult Z68.43 and Morbid (severe) obesity due to excess calories E66.01 [place] [address] [address] Oct, Encounter for Medicare annual wellness e [...] Other cirrhosis of liver K74.69 [place] [address] [address] Oct, [place] [address] [id number] [place] [address] Sep, Major depressive disorder, recurrent epi sode, moderate F33.1 ; Vitamin B12 deficiency E53.8 ; BMI 50.0-59.9, adult Z68.43 and Essential hypertension I10 [place] [address] [place] [id number] [place] [address] Sep, Breast pain, right N64.4 [place] [address] [place] [address] Sep, Breast pain, right N64.4 [place] [address] [place] [address] Sep, Breast pain, right N64.4 [place] [address] [place] [address] Sep, Breast pain, right N64.4 [place] [address] [place] [id number] [place] [address] Aug, [place] [address] [place] [id number] [place] [address] Aug, Major depressive disorder, recurrent epi sode, moderate F33.1 ; BMI 50.0-59.9, adult Z68.43 ; Type 2 diabetes mellitus without complication E11.9 ; Breast pain, right N64.4 and Encounter for screening mammogram for breast cancer Z12.31 [facility] [address] [place] [address] Jun, Pneumonia of right middle lo be due to infectious organism J18.1 and Cough R05 [facility] [address] [place] [address] Jun, Acute nasopharyngitis J00 [place] [address] [id number] [place] [address] May, Iron deficiency anemia due to chronic [...] disorder, recurrent episode, moderate F33.1 [place] [address] [address] May, Hyperlipidemia, unspecified E78.5 ; Othe r cirrhosis of liver K74.69 and Iron deficiency anemia due to chronic blood loss D50.0 [place] [address] [address] February, [facility] [address] [place] [address] February, Acute recurrent pansinusitis J01.41 [facility] [address] [place] [address] February, Acute maxillary sinusitis, r ecurrence not specified J01.00 [place] [address] [address] Jan, Bilateral primary osteoarthritis of knee M17.0 ; Morbid obesity E66.01 ; Viral syndrome B34.9 and Atrial dilatation, left I51.[address] [address] Jan, [place] [address] [address] Dec, Trigeminy R00.[address] [address] Dec, Essential hypertension I10 ; Morbid obes ity E66.01 ; Low back pain M54.5 ; Other chronic pain G89.29 and Pain in right knee M25.561 [place] [address] [address] Nov, [place] [address] [address] Oct, Palpitations R00.[address] [address] Oct, Encounter for Medicare annual wellness e brant Z00.00 ; Major depressive disorder, recurrent episode, [...] large intestine with complication K50.819 [place] [address] [address] Oct, [address] [address] Oct, Crohn's disease of both small and large intestine with complication K50.819 [facility] [address] [place] [address] [id number] [address] [place] [address] Jul, Sinusitis chronic, frontal J 32.1 ; Acute mucoid otitis media of both ears H65.113 ; Seasonal allergies J30.2 and BMI 50.0-59.9, adult Z68.43 [place] [id number] [place] [address] Jul, Essential hypertension I10 ; Type 2 diab etes mellitus with other specified complication E11.69 ; BMI 50.0-59.9, adult Z68.43 ; Mixed stress and urge urinary incontinence N39.46 and Mid back pain on right side M54.[address] [address] Jun, Iron deficiency anemia due to chronic bl ood loss D50.0 ; Hyperlipidemia E78.5 ; Type 2 diabetes mellitus with other specified complication E11.69 ; Vitamin B12 deficiency E53.8 and Vitamin D deficiency E55.9 [facility] [address] [facility] [id number] [address] [place] [address] Jun, Cough R05 and BMI 50.0-59.9, adult Z68.43 [place] [address] [address] Jun, [place] [address] [address] May, Iron deficiency anemia due to chronic bl ood loss D50.0 ; Chronic diarrhea K52.9 ; Essential hypertension I10 ; Type 2 diabetes mellitus with other specified complication E11.69 ; Vitamin D deficiency E55.9 ; Colon stricture K56.699 ; Vitamin B12 deficiency E53.8 ; Hyperlipidemia E78.5 and BMI 50.0-59.9, adult Z68.43 [place] [address] [address] May, [place] [address] [address] Apr, Nonhealing wound of heel S91.309A and Christopher dy mass index (BMI) of 50-59.9 in adult Z68.43 [place] [address] [address] Mar, [address] [address] Mar, BMI 50.0-59.9, adult Z68.43 ; Flank pain R10.9 and Weight loss counseling, encounter for Z71.[address] [address] February, [place] [address] [address] Jan, [place] [address] [address] Jan, [facility] [address] [facility] [id number] [place] [address] Jan, Diarrhea due to staphylococc us A04.8 and Diarrhea, unspecified type R19.7 [place] [address] [address] Jan, Acquired hypothyroidism E03.9 ; Type 2 d iabetes mellitus with other specified complication E11.69 ; Hyperlipidemia E78.5 ; Essential hypertension I10 ; Major depressive disorder, recurrent episode, moderate F33.1 and Vitamin D deficiency E55.9 [place] [address] [address] 03 Jan, 2018 Type 2 diabetes mellitus with other spec ified complication E11.69 ; Hyperlipidemia E78.5 ; Essential hypertension I10 ; Acquired hypothyroidism E03.9 ; Major depressive disorder, recurrent episode, moderate F33.1 ; Vitamin D deficiency E55.9 ; Sinus congestion R09.81 and BMI 50.0-59.9, adult Z68.43 [place] [address] [address] Dec, [address] [address] Sep, Encounter for immunization Z23 [address] [address] Sep, [address] [address] Sep, Vitamin B12 deficiency E53.8 [place] [address] [address] Aug, [address] [address] Aug, BMI 60.0-69.9, adult Z68.44 and Acute no n-recurrent maxillary sinusitis J01.00 [place] [address] [address] 14 Aug, 2017 [place] [address] [address] 02 Aug, 2017 Medicare annual wellness visit, initial Z00.00 ; Screening for breast cancer Z12.31 ; BMI 40.0-44.9, adult Z68.41 and Acquired hypothyroidism E03.9 [place] [address] [address] Jul, Actinic keratosis L57.0 [place] [address] [address] Jul, Actinic keratosis L57.0 [place] [address] [address] Jul, Type 2 diabetes mellitus with other spec ified complication E11.69 ; Actinic keratosis L57.0 and Hypothyroidism, unspecified E03.9 [place] [address] [address] Jul, [place] [address] [address] Jul, [place] [address] [address] Jul, Vitamin B12 deficiency E53.8 [place] [address] [address] Jun, Acquired hypothyroidism E03.9 and Chroni c tension-type headache, intractable G44.221 [place] [address] [address] Jun, Back muscle spasm M62.830 and BMI 50.0-5 9.9, adult Z68.43 [place] [address] [address] Jun, Vitamin B12 deficiency E53.8 [place] [address] [address] Jun, Crohn's disease of both small and large intestine with complication K50.819 [place] [address] [address] Jun, Crohn's disease of both small and large intestine with complication K50.819 [place] [address] [address] May, Hyperlipidemia E78.5 ; Anxiety F41.9 and Essential hypertension I10 [place] [address] [address] May, [place] [address] [address] May, Encounter for immunization Z23 and Vitam in B12 deficiency E53.8 [place] [address] [address] May, [place] [address] [address] Apr, [place] [address] [address] Apr, [place] [address] [address] Apr, Crohn's disease of both small and large intestine with complication K50.819 [place] [address] [address] Apr, Vitamin B12 deficiency E53.8 [place] [address] [address] Apr, Crohn's disease of both small and large intestine with complication K50.819 and Acute pain of right shoulder M25.511 [place] [address] [address] Mar, Type 2 diabetes mellitus without complic ation E11.9 ; Frequent falls R29.6 and Other chest pain R07.89 [place] [address] [address] Mar, [place] [address] [address] Mar, [place] [address] [address] Mar, Type 2 diabetes mellitus without complic ation E11.9 and Blurry vision, bilateral H53.8 [place] [address] [place] [id number] [place] [address] Mar, Vitamin B12 deficiency E53.8 [place] [address] [address] Mar, Crohn's disease of both small and large intestine with complication K50.819 [place] [address] [address] February, Vitamin B12 deficiency E53.8 [place] [address] [address] Jan, Crohn's disease of both small and large intestine with complication K50.819 [place] [address] [address] Jan, Crohn's disease of both small and large intestine with complication K50.819 [facility] [address] [facility] [id number] [address] [place] [address] Jan, Dark brown-colored urine R82 .99 and Acute suppurative otitis media of right ear without spontaneous rupture of tympanic membrane, recurrence not specified H66.001 [place] [address] [address] Jan, Encounter for immunization Z23 [place] [address] [address] Dec, Crohn's disease of both small and large intestine with complication K50.819 and Eustachian tube dysfunction, right H69.81 [place] [address] [address] Dec, [place] [address] [address] Dec, Contusion of right knee, initial encount er S80.01XA [place] [address] [address] Dec, [place] [address] [address] Dec, Acute pain of right knee M25.561 [place] [address] [address] Dec, Iron deficiency anemia due to chronic bl ood loss D50.0 [place] [address] [address] Dec, Hyperlipidemia E78.5 ; Type 2 diabetes m ellitus without complication E11.9 ; Vitamin B12 deficiency E53.8 ; Essential hypertension I10 ; Obstructive sleep apnea on CPAP G47.33 and Periodic limb movement sleep disorder G47.61 [place] [address] [address] 22 Nov, 2016 Type 2 diabetes mellitus without complic ation E11.9 ; Vitamin B12 deficiency E53.8 ; Hyperlipidemia E78.5 ; Essential hypertension I10 ; Obstructive sleep apnea on CPAP G47.33 ; Periodic limb movement sleep disorder G47.61 ; Anxiety F41.9 ; Acquired hypothyroidism E03.9 and Chronic tension-type headache, intractable G44.221 [place] [address] [address] Nov, Crohn's disease of both small and large intestine with complication K50.819 [place] [address] [address] Nov, Vitamin B12 deficiency E53.8 [place] [address] [address] Oct, [place] [address] [address] Oct, Vitamin B12 deficiency E53.8 [place] [address] [address] Sep, [place] [address] [address] Sep, Vitamin B12 deficiency E53.8 [place] [address] [address] Aug, [place] [address] [address] Aug, Vitamin B12 deficiency E53.8 [place] [address] [address] Aug, [place] [address] [address] Jul, Elevated ALT measurement R74.0 [place] [address] [address] Jul, Hematuria R31.9 ; Acute right-sided thor acic back pain M54.6 ; Major depressive disorder, recurrent episode, moderate F33.1 and Elevated ALT measurement R74.0 [place] [address] [address] Jul, [place] [address] [address] Jul, Elevated ALT measurement R74.0 [place] [address] [address] Jul, Iron deficiency anemia due to chronic bl ood loss D50.0 [place] [address] [address] Jul, Type 2 diabetes mellitus without complic ation E11.9 ; Acquired hypothyroidism E03.9 ; Iron deficiency anemia due to chronic blood loss D50.0 ; Hyperlipidemia E78.5 and Essential hypertension I10 [place] [address] [address] Jun, [place] [address] [address] 20 Jun, 2016 Vitamin B12 deficiency E53.8 [place] [address] [address] 16 Jun, 2016 Type 2 diabetes mellitus without complic ation E11.9 ; Acquired hypothyroidism E03.9 ; Iron deficiency anemia due to chronic blood loss D50.0 ; Hyperlipidemia E78.5 ; Essential hypertension I10 ; Chronic tension-type headache, intractable G44.221 ; Pulsatile tinnitus, bilateral H93.13 ; Obstructive sleep apnea on CPAP G47.33 and Major depressive disorder, recurrent episode, moderate F33.1 [place] [address] [address] 16 May, 2016 Vitamin B12 deficiency E53.8 [place] [address] [address] 08 May, 2016 [place] [address] [address] Apr, Vitamin B12 deficiency E53.8 [place] [address] [address] 05 Apr, 2016 [place] [address] [address] Mar, Chronic tension-type headache, intractab le G44.221 and Major depressive disorder, recurrent episode, moderate F33.1 [place] [address] [address] 14 Mar, 2016 Vitamin B12 deficiency E53.8 [place] [address] [address] February, [place] [address] [address] February, Vitamin B12 deficiency E53.8 [place] [address] [address] February, [place] [address] [address] Jan, Dysuria R30.[address] [address] Jan, Type 2 diabetes mellitus without complic ation E11.9 and Essential hypertension I10 [place] [address] [address] 15 Jan, 2016 Chronic diarrhea K52.9 [place] [address] [address] 13 Jan, 2016 [facility] [address] [address] 12 Jan, 2016 Chronic diarrhea K52.9 [facility] [address] [address] Jan, [place] [address] [address] Jan, Dysuria R30.0 [place] [address] [address] 07 Jan, 2016 Vitamin B12 deficiency E53.8 [place] [address] [address] 07 Jan, 2016 Dysuria R30.0 and Iron deficiency anemia due to chronic blood loss D50.0 [place] [address] [address] 05 Jan, 2016 Dysuria R30.0 [place] [address] [address] 04 Jan, 2016 [place] [address] [address] 15 Dec, 2015 [place] [address] [address] Dec, Iron deficiency anemia due to chronic bl ood loss D50.0 [place] [address] [address] 10 Dec, 2015 Dysuria R30.0 ; Fatigue R53.83 ; Hyperli pidemia E78.5 and Diarrhea R19.7 [place] [address] [address] 09 Dec, 2015 [place] [address] [address] Dec, [place] [address] [address] Nov, Vitamin B12 deficiency E53.8 [facility] [address] [address] Oct, Vitamin B12 deficiency E53.8 [place] [address] [address] Oct, [facility] [address] [facility] [id number] [address] [place] [address] 09 Oct, 2015 Headache R51 [facility] [address] [address] 07 Oct, 2015 Essential hypertension I10 ; Type 2 diab etes mellitus without complication E11.9 ; Vitamin B12 deficiency E53.8 ; Acquired hypothyroidism E03.9 ; Iron deficiency anemia due to chronic blood loss D50.0 and Hyperlipidemia E78.5 [place] [address] [address] 17 Sep, 2015 Essential hypertension I10 ; Vitamin B12 deficiency E53.8 ; Iron deficiency anemia due to chronic blood loss D50.0 ; Type 2 diabetes mellitus without complication E11.9 ; Hyperlipidemia E78.5 and Acquired hypothyroidism E03.9 [place] [address] [address] Sep, [place] [address] [address] Sep, [place] [address] [address] Jul, [place] [address] [address] Jun, [place] [address] [address] Jun, [place] [address] [address] Jun, Hyperlipidemia 272.4 ; Iron deficiency a nemia 280.9 ; Hypothyroidism 244.9 ; Diabetes mellitus without mention of complication, type II or unspecified type, not stated as uncontrolled 250.00 and Hypertension 401.9 [place] [address] [place] [id number] [place] [address] Jun, [facility] [address] [address] Jun, [facility] [address] [address] May, Hyperlipidemia 272.4 [facility] [address] [address] May, [facility] [address] [address] May, [facility] [address] [address] Apr, Diabetes mellitus without mention of com plication, type II or unspecified type, not stated as uncontrolled 250.00 ; Hypothyroidism 244.9 ; Hyperlipidemia 272.4 ; Pain in joint, lower leg 719.46 and RUQ pain 789.01 [facility] [address] [address] Mar, Sinusitis 473.9 [facility] [address] [address] Mar, [facility] [address] [address] Mar, [facility] [address] [address] Mar, Hematochezia 578.1 [facility] [address] [address] February, Sinusitis 473.9 [facility] [address] [address] February, [facility] [address] [address] Jan, [facility] [address] [address] Jan, [facility] [address] [place] [address] 24 Dec, 2014 [facility] [address] [facility] [id number] [place] [address] Dec, [facility] [address] [id number] [place] [address] Dec, [facility] [address] [id number] [place] [address] Dec, [facility] [address] [id number] [place] [address] Dec, [facility] [address] [id number] [place] [address] Dec, [facility] [address] [id number] [place] [address] Dec, [facility] [address] [id number] [place] [address] Dec, [facility] [address] [id number] [place] [address] Dec, [facility] [address] [id number] [place] [address] Dec, [facility] [address] [id number] [place] [address] Dec, [facility] [address] [id number] [place] [address] Nov, [facility] [address] [id number] [place] [address] Nov, [facility] [address] [id number] [place] [address] Nov, [facility] [address] [id number] [place] [address] Nov, [facility] [address] [id number] [place] [address] Oct, [facility] [address] [id number] [place] [address] Oct, [facility] [address] [id number] [place] [address] Oct, [facility] [address] [id number] [place] [address] Oct, [facility] [address] [id number] [place] [address] Oct, [facility] [address] [id number] [place] [address] Oct, [facility] [address] [id number] [place] [address] Sep, [facility] [address] [id number] [place] [address] Sep, [facility] [address] [id number] [place] [address] Sep, [facility] [id number] [place] [address] Sep, [facility] [address] [id number] [place] [address] Sep, [facility] [address] [id number] [place] [address] Sep, [facility] [address] [id number] [place] [address] Sep, [facility] [address] [id number] [place] [address] Aug, [facility] [address] [id number] [place] [address] Aug, [facility] [address] [id number] [place] [address] Aug, [facility] [address] [id number] [place] [address] Aug, [facility] [address] [id number] [place] [address] Aug, [facility] [address] [id number] [place] [address] Aug, [facility] [address] [id number] [place] [address] Aug, [facility] [address] [id number] [place] [address] Aug, [facility] [address] [id number] [place] [address] Aug, [facility] [address] [id number] [place] [address] Aug, [facility] [address] [id number] [place] [address] Aug, [facility] [address] [id number] [place] [address] Aug, [facility] [address] [id number] [place] [address] Aug, [facility] [address] [id number] [place] [address] Aug, [facility] [address] [id number] [place] [address] Jul, [facility] [address] [id number] [place] [address] Jul, [facility] [address] [id number] [place] [address] Jul, [facility] [address] [id number] [place] [address] Jul, [facility] [address] [id number] [place] [address] 24 Jun, 2014 [facility] [address] [id number] [place] [address] 24 Jun, 2014 [facility] [address] [id number] [place] [address] Jun, [facility] [address] [id number] [place] [address] Jun, 2013 [facility] [address] [id number] [facility] [address] 19 Jun, 2013 [facility] [address] [id number] [place] [address] 19 Jun, 2013 [facility] [address] [facility] [id number] [place] [address] 11 Jun, 2013 [facility] [address] [facility] [id number] [place] [address] 11 Jun, 2013 [facility] [address] [facility] [id number] [place] [address] 11 Jun, 2013 [facility] [address] [id number] [place] [address] 11 Jun, 2013 [facility] [address] [facility] [id number] [place] [address] Jun, 2013 [facility] [address] [id number] [place] [address] Jun, 2013 [facility] [address] [id number] [place] [address] Jun, 2013 [facility] [address] [id number] [place] [address] Jun, [facility] [address] [id number] [place] [address] 14 May, 2014 [facility] [address] [id number] [place] [address] May, [facility] [address] [id number] [place] [address] May, [facility] [address] [id number] [place] [address] May, [facility] [address] [id number] [place] [address] May, [facility] [address] [id number] [place] [address] May, [facility] [address] [id number] [place] [address] Apr, [facility] [address] [facility] [id number] [place] [address] Apr, [facility] [address] [facility] [id number] [place] [address] Apr, [facility] [address] [facility] [id number] [place] [address] Apr, [facility] [address] [facility] [id number] [place] [address] Apr, [facility] [address] [facility] [id number] [place] [address] Apr, [facility] [address] [facility] [id number] [place] [address] Apr, [facility] [address] [id number] [place] [address] Apr, [facility] [address] [id number] [place] [address] Apr, [facility] [address] [facility] [id number] [place] [address] Apr, [facility] [address] [id number] [place] [address] Apr, [facility] [address] [id number] [place] [address] Mar, [facility] [address] [id number] [place] [address] Mar, [facility] [address] [facility] [id number] [place] [address] Mar, [facility] [address] [facility] [id number] [place] [address] Mar, [facility] [address] [facility] [id number] [place] [address] February, [facility] [address] [id number] [place] [address] February, [facility] [address] [id number] [place] [address] Jan, [facility] [address] [id number] [place] [address] Jan, [facility] [address] [id number] [id number] Jan, [facility] [address] [id number] [place] [address] Jan, [facility] [address] [id number] [place] [address] Jan, [facility] [address] [id number] [place] [address] Jan, [facility] [address] [id number] [place] [address] Jan, [facility] [address] [id number] [place] [address] Jan, [facility] [address] [id number] [place] [address] Jan, [facility] [address] [id number] [place] [address] Jan, [facility] [address] [id number] [place] [address] Jan, [facility] [address] [id number] [place] [address] Jan, [facility] [address] [id number] [place] [address] Jan, [facility] [address] [id number] [place] [address] Jan, [facility] [address] [id number] [place] [address] Jan, [facility] [address] [id number] [place] [address] Jan, [facility] [address] [id number] [place] [address] Jan, [facility] [address] [id number] [facility] [address] Dec, [facility] [address] [facility] [id number] [facility] [address] Dec, [facility] [address] [facility] [id number] [place] [address] Dec, [facility] [address] [id number] [place] [address] Dec, [facility] [address] [id number] [place] [address] Dec, [facility] [address] [facility] [id number] [place] [address] Dec, [facility] [address] [id number] [place] [address] Dec, [facility] [address] [id number] [place] [address] Nov, [facility] [address] [id number] [place] [address] Nov, [facility] [address] [id number] [place] [address] Nov, [facility] [address] [id number] [place] [address] Nov, [facility] [address] [id number] [place] [address] Nov, [facility] [address] [id number] [place] [address] Nov, [facility] [address] [id number] [place] [address] Nov, [facility] [address] [id number] [place] [address] Oct, [facility] [address] [id number] [place] [address] Oct, [facility] [address] [id number] [place] [address] Sep, [facility] [address] [id number] [place] [address] Sep, [facility] [address] [id number] [place] [address] Sep, [facility] [address] [id number] [place] [address] Sep, [facility] [address] [id number] [place] [address] Sep, [facility] [address] [id number] [place] [address] Sep, [facility] [address] [id number] [place] [address] Sep, [facility] [address] [id number] [place] [address] Sep, [facility] [id number] [place] [address] Sep, [facility] [address] [id number] [place] [address] Sep, [facility] [address] [id number] [place] [address] Aug, [facility] [address] [id number] [place] [address] Aug, [facility] [address] [id number] [place] [address] Aug, [facility] [address] [id number] [place] [address] Aug, [facility] [address] [id number] [place] [address] Aug, [facility] [address] [id number] [place] [address] Jul, [facility] [address] [id number] [place] [address] Jul, [facility] [address] [id number] [place] [address] Jul, [facility] [address] [facility] [id number] [place] [address] Jul, IMMUNIZATIONS No Known Immunizations SOCIAL HISTORY [...]
--- OUTSIDE RECORDS SUMMARY | 2020-03-16 11:45 | XMS REPORT ---
Author Author Swathi Benavides Organization [facility] Address [address] [place] [address] Care Team Providers Care Coremaker Supervisor Name Role Phone WIL Benavides Unavailable PROBLEMS Type Condition ICD9-CM Code VBE45-IH Code Onset Dates Condition S tatus SNOMED Code Problem Sensorineural hearing loss of right ear H90.41 Active 02391103 Problem Obstructive sleep apnea on CPAP G47.33 Active 92550431 Problem Periodic limb movement sleep disorder G47.61 Active 559472679 Problem Iron deficiency anemia due to chronic blood loss D 50.0 Active 40472503 Problem MACHUCA (nonalcoholic steatohepatitis) K75.81 Active 950285283 Problem Vitamin B12 deficiency E53.8 Active 258932050 Problem Chronic diarrhea K52.9 Active 236 193425 Problem Vitamin D deficiency E55.9 Active 97487019 Problem BMI 50.0-59.9, adult Z68.43 Active 819902457 Problem Fatty liver K76.0 Active 52390940 7 Problem Anxiety F41.9 Active 62470540 Problem Major depressive disorder, recurrent episode, moderate F33.1 Active 895313953 Problem Chronic tension-type headache, intractable G44.221 Active 310520386 Problem Right upper quadrant pain R10.11 Acti ve 00117323 Problem Frequent falls R29.6 Active 98917 2001 Problem Crohn's disease of both small and large intestin e with complication K50.819 Active 00136189 Problem Type 2 diabetes mellitus with other specified complication E11.69 Active 260484006719 Problem Hyperlipidemia, unspecified E78.5 Ac tive 25249662 Problem Mixed stress and urge urinary incontinence N39.46 Active 473101470 Problem Sinusitis chronic, frontal J32.1 Act katlyn 82796099 Problem Seasonal allergies J30.2 Active 4 84621593 Problem Other chronic pain G89.29 Active 8 8020506 Problem Hyperlipidemia E78.5 Active 81164 004 Problem Bilateral primary osteoarthritis of knee M17.0 Active 894853454 Problem Essential hypertension I10 Active 85338613 Problem Acquired hypothyroidism E03.9 Active 733482992 Problem History of hysterectomy for benign disease Z90.710 Active 656363606 Problem Morbid (severe) obesity due to excess calories E66 .01 Active 211802584 Problem Other cirrhosis of liver K74.69 Activ e 93345839 Problem Portal hypertension K76.6 Active 89732920 ALLERGIES No Information ENCOUNTERS Encounter Location Date Diagnosis [place] [address] [address] Jan, [place] [address] [address] Nov, MACHUCA (nonalcoholic steatohepatitis) K75. 81 ; BMI 50.0-59.9, adult Z68.43 and Type 2 diabetes mellitus with other specified complication E11.69 [place] [address] [address] Oct, Morbid (severe) obesity due to excess ca lories E66.01 and Type 2 diabetes mellitus with other specified complication E11.69 [place] [address] [address] Oct, Essential hypertension I10 ; BMI 50.0-59 .9, adult Z68.43 and Morbid (severe) obesity due to excess calories E66.01 [place] [address] [address] Oct, Encounter for Medicare annual wellness e [...] E78.5 and Other cirrhosis of liver K74.69 [place] [address] [address] Oct, [facility] [address] [facility] [place] [address] Sep, Major depressive disorder, recurrent epi sode, moderate F33.1 ; Vitamin B12 deficiency E53.8 ; BMI 50.0-59.9, adult Z68.43 and Essential hypertension I10 [place] [address] [place] [id number] [place] [address] Sep, Breast pain, right N64.4 [address] [place] [address] Sep, Breast pain, right N64.[address] [place] [address] Sep, Breast pain, right N64.4 [address] [place] [address] Sep, Breast pain, right N64.4 [place] [address] [place] [id number] [place] [address] Aug, [place] [address] [place] [id number] [place] [address] Aug, Major depressive disorder, recurrent epi sode, moderate F33.1 ; BMI 50.0-59.9, adult Z68.43 ; Type 2 diabetes mellitus without complication E11.9 ; Breast pain, right N64.4 and Encounter for screening mammogram for breast cancer Z12.31 [facility] [address] [place] [address] Jun, Pneumonia of right middle lo be due to infectious organism J18.1 and Cough R05 [facility] [address] [place] [address] Jun, Acute nasopharyngitis J00 [place] [address] [facility] [place] [address] May, Iron deficiency anemia due to chronic [...] Major depressive disorder, recurrent episode, moderate F33.1 [place] [address] [address] May, Hyperlipidemia, unspecified E78.5 ; Othe r cirrhosis of liver K74.69 and Iron deficiency anemia due to chronic blood loss D50.0 [place] [address] [address] February, [facility] [address] [place] [address] February, Acute recurrent pansinusitis J01.41 [facility] [address] [place] [address] February, Acute maxillary sinusitis, r ecurrence not specified J01.00 [place] [address] [address] Jan, Bilateral primary osteoarthritis of knee M17.0 ; Morbid obesity E66.01 ; Viral syndrome B34.9 and Atrial dilatation, left I51.7 [place] [address] [address] Jan, [place] [address] [address] Dec, Trigeminy R00.8 [place] [address] [address] Dec, Essential hypertension I10 ; Morbid obes ity E66.01 ; Low back pain M54.5 ; Other chronic pain G89.29 and Pain in right knee M25.561 [place] [address] [address] Nov, [place] [address] [address] Oct, Palpitations R00.[address] [address] Oct, Encounter for Medicare annual wellness e [...] small and large intestine with complication K50.[address] [address] Oct, [address] [address] Oct, Crohn's disease of both small and large intestine with complication K50.819 [facility] [address] [place] [address] [id number] [address] [place] [address] Jul, Sinusitis chronic, frontal J 32.1 ; Acute mucoid otitis media of both ears H65.113 ; Seasonal allergies J30.2 and BMI 50.0-59.9, adult Z68.[address] [address] Jul, Essential hypertension I10 ; Type 2 diab etes mellitus with other specified complication E11.69 ; BMI 50.0-59.9, adult Z68.43 ; Mixed stress and urge urinary incontinence N39.46 and Mid back pain on right side M54.[address] [address] Jun, Iron deficiency anemia due to chronic bl ood loss D50.0 ; Hyperlipidemia E78.5 ; Type 2 diabetes mellitus with other specified complication E11.69 ; Vitamin B12 deficiency E53.8 and Vitamin D deficiency E55.9 [facility] [address] [facility] [id number] [address] [place] [address] Jun, Cough R05 and BMI 50.0-59.9, adult Z68.43 [place] [address] [address] Jun, [place] [address] [address] May, Iron deficiency anemia due to chronic bl ood loss D50.0 ; Chronic diarrhea K52.9 ; Essential hypertension I10 ; Type 2 diabetes mellitus with other specified complication E11.69 ; Vitamin D deficiency E55.9 ; Colon stricture K56.699 ; Vitamin B12 deficiency E53.8 ; Hyperlipidemia E78.5 and BMI 50.0-59.9, adult Z68.43 [place] [address] [address] May, [place] [address] [address] Apr, Nonhealing wound of heel S91.309A and Christopher dy mass index (BMI) of 50-59.9 in adult Z68.43 [place] [address] [address] Mar, [place] [address] [address] Mar, BMI 50.0-59.9, adult Z68.43 ; Flank pain R10.9 and Weight loss counseling, encounter for Z71.[address] [address] February, [place] [address] [address] Jan, [place] [address] [address] Jan, [facility] [address] [facility] [id number] [address] [place] [address] Jan, Diarrhea due to staphylococc us A04.8 and Diarrhea, unspecified type R19.7 [place] [address] [address] 10 Jan, 2018 Acquired hypothyroidism E03.9 ; Type 2 d iabetes mellitus with other specified complication E11.69 ; Hyperlipidemia E78.5 ; Essential hypertension I10 ; Major depressive disorder, recurrent episode, moderate F33.1 and Vitamin D deficiency E55.9 [place] [address] [address] 03 Jan, 2018 Type 2 diabetes mellitus with other spec ified complication E11.69 ; Hyperlipidemia E78.5 ; Essential hypertension I10 ; Acquired hypothyroidism E03.9 ; Major depressive disorder, recurrent episode, moderate F33.1 ; Vitamin D deficiency E55.9 ; Sinus congestion R09.81 and BMI 50.0-59.9, adult Z68.43 [place] [address] [address] Dec, [place] [address] [address] Sep, Encounter for immunization Z23 [address] [address] Sep, [place] [address] [address] Sep, Vitamin B12 deficiency E53.8 [place] [address] [address] Aug, [place] [address] [address] Aug, BMI 60.0-69.9, adult Z68.44 and Acute no n-recurrent maxillary sinusitis J01.00 [place] [address] [address] 14 Aug, 2017 [place] [address] [address] 02 Aug, 2017 Medicare annual wellness visit, initial Z00.00 ; Screening for breast cancer Z12.31 ; BMI 40.0-44.9, adult Z68.41 and Acquired hypothyroidism E03.9 [place] [address] [address] Jul, Actinic keratosis L57.0 [place] [address] [address] Jul, Actinic keratosis L57.0 [place] [address] [address] Jul, Type 2 diabetes mellitus with other spec ified complication E11.69 ; Actinic keratosis L57.0 and Hypothyroidism, unspecified E03.9 [place] [address] [address] Jul, [place] [address] [address] Jul, [place] [address] [address] Jul, Vitamin B12 deficiency E53.8 [place] [address] [address] Jun, Acquired hypothyroidism E03.9 and Chroni c tension-type headache, intractable G44.221 [place] [address] [address] Jun, Back muscle spasm M62.830 and BMI 50.0-5 9.9, adult Z68.43 [place] [address] [address] Jun, Vitamin B12 deficiency E53.8 [place] [address] [address] Jun, Crohn's disease of both small and large intestine with complication K50.819 [place] [address] [address] Jun, Crohn's disease of both small and large intestine with complication K50.819 [place] [address] [address] May, Hyperlipidemia E78.5 ; Anxiety F41.9 and Essential hypertension I10 [place] [address] [address] May, [place] [address] [address] May, Encounter for immunization Z23 and Vitam in B12 deficiency E53.8 [place] [address] [address] May, [place] [address] [address] Apr, [place] [address] [address] Apr, [place] [address] [address] Apr, Crohn's disease of both small and large intestine with complication K50.819 [place] [address] [address] Apr, Vitamin B12 deficiency E53.8 [place] [address] [address] Apr, Crohn's disease of both small and large intestine with complication K50.819 and Acute pain of right shoulder M25.511 [place] [address] [address] Mar, Type 2 diabetes mellitus without complic ation E11.9 ; Frequent falls R29.6 and Other chest pain R07.89 [place] [address] [address] Mar, [place] [address] [address] Mar, [place] [address] [address] Mar, Type 2 diabetes mellitus without complic ation E11.9 and Blurry vision, bilateral H53.8 [place] [address] [address] Mar, Vitamin B12 deficiency E53.8 [place] [address] [address] Mar, Crohn's disease of both small and large intestine with complication K50.819 [place] [address] [address] February, Vitamin B12 deficiency E53.8 [place] [address] [address] Jan, Crohn's disease of both small and large intestine with complication K50.819 [place] [address] [address] Jan, Crohn's disease of both small and large intestine with complication K50.819 [facility] [address] [facility] [id number] [address] [place] [address] Jan, Dark brown-colored urine R82 .99 and Acute suppurative otitis media of right ear without spontaneous rupture of tympanic membrane, recurrence not specified H66.001 [place] [address] [address] Jan, Encounter for immunization Z23 [place] [address] [address] Dec, Crohn's disease of both small and large intestine with complication K50.819 and Eustachian tube dysfunction, right H69.81 [place] [address] [address] Dec, [place] [address] [address] Dec, Contusion of right knee, initial encount er S80.01XA [place] [address] [address] Dec, [place] [address] [address] 13 Dec, 2016 Acute pain of right knee M25.561 [place] [address] [address] Dec, Iron deficiency anemia due to chronic bl ood loss D50.0 [place] [address] [address] Dec, Hyperlipidemia E78.5 ; Type 2 diabetes m ellitus without complication E11.9 ; Vitamin B12 deficiency E53.8 ; Essential hypertension I10 ; Obstructive sleep apnea on CPAP G47.33 and Periodic limb movement sleep disorder G47.61 [place] [address] [address] 22 Nov, 2016 Type 2 diabetes mellitus without complic ation E11.9 ; Vitamin B12 deficiency E53.8 ; Hyperlipidemia E78.5 ; Essential hypertension I10 ; Obstructive sleep apnea on CPAP G47.33 ; Periodic limb movement sleep disorder G47.61 ; Anxiety F41.9 ; Acquired hypothyroidism E03.9 and Chronic tension-type headache, intractable G44.221 [place] [address] [address] Nov, Crohn's disease of both small and large intestine with complication K50.819 [place] [address] [address] Nov, Vitamin B12 deficiency E53.8 [place] [address] [address] Oct, [place] [address] [address] Oct, Vitamin B12 deficiency E53.8 [place] [address] [address] Sep, [place] [address] [address] Sep, Vitamin B12 deficiency E53.8 [place] [address] [address] Aug, [place] [address] [address] Aug, Vitamin B12 deficiency E53.8 [place] [address] [address] Aug, [place] [address] [address] 24 Jul, 2016 Elevated ALT measurement R74.0 [place] [address] [address] Jul, Hematuria R31.9 ; Acute right-sided thor acic back pain M54.6 ; Major depressive disorder, recurrent episode, moderate F33.1 and Elevated ALT measurement R74.0 [place] [address] [address] Jul, [place] [address] [address] Jul, Elevated ALT measurement R74.0 [place] [address] [address] 14 Jul, 2016 Iron deficiency anemia due to chronic bl ood loss D50.0 [place] [address] [address] 14 Jul, 2016 Type 2 diabetes mellitus without complic ation E11.9 ; Acquired hypothyroidism E03.9 ; Iron deficiency anemia due to chronic blood loss D50.0 ; Hyperlipidemia E78.5 and Essential hypertension I10 [place] [address] [place] [id number] [place] [address] Jun, [place] [address] [address] 20 Jun, 2016 Vitamin B12 deficiency E53.8 [place] [address] [place] [id number] [place] [address] 16 Jun, 2016 Type 2 diabetes mellitus without complic ation E11.9 ; Acquired hypothyroidism E03.9 ; Iron deficiency anemia due to chronic blood loss D50.0 ; Hyperlipidemia E78.5 ; Essential hypertension I10 ; Chronic tension-type headache, intractable G44.221 ; Pulsatile tinnitus, bilateral H93.13 ; Obstructive sleep apnea on CPAP G47.33 and Major depressive disorder, recurrent episode, moderate F33.1 [place] [address] [address] 16 May, 2016 Vitamin B12 deficiency E53.8 [place] [address] [address] 08 May, 2016 [place] [address] [address] Apr, Vitamin B12 deficiency E53.8 [place] [address] [address] 05 Apr, 2016 [place] [address] [address] Mar, Chronic tension-type headache, intractab le G44.221 and Major depressive disorder, recurrent episode, moderate F33.1 [place] [address] [address] 14 Mar, 2016 Vitamin B12 deficiency E53.8 [place] [address] [address] February, [place] [address] [address] February, Vitamin B12 deficiency E53.8 [place] [address] [address] February, [place] [address] [address] Jan, Dysuria R30.0 [place] [address] [address] 22 Jan, 2016 Type 2 diabetes mellitus without complic ation E11.9 and Essential hypertension I10 [place] [address] [address] 15 Jan, 2016 Chronic diarrhea K52.9 [facility] [address] [address] 13 Jan, 2016 [facility] [address] [address] 12 Jan, 2016 Chronic diarrhea K52.9 [place] [address] [address] Jan, [place] [address] [address] Jan, Dysuria R30.0 [place] [address] [address] Jan, Vitamin B12 deficiency E53.8 [place] [address] [address] 07 Jan, 2016 Dysuria R30.0 and Iron deficiency anemia due to chronic blood loss D50.0 [place] [address] [address] 05 Jan, 2016 Dysuria R30.0 [place] [address] [address] 04 Jan, 2016 [place] [address] [address] 15 Dec, 2015 [place] [address] [address] Dec, Iron deficiency anemia due to chronic bl ood loss D50.0 [place] [address] [address] 10 Dec, 2015 Dysuria R30.0 ; Fatigue R53.83 ; Hyperli pidemia E78.5 and Diarrhea R19.7 [place] [address] [address] 09 Dec, 2015 [place] [address] [address] 02 Dec, 2015 [place] [address] [address] 10 Nov, 2015 Vitamin B12 deficiency E53.8 [facility] [address] [address] Oct, Vitamin B12 deficiency E53.8 [facility] [address] [address] Oct, [facility] [address] [facility] [id number] [address] [place] [address] 09 Oct, 2015 Headache R51 [facility] [address] [address] 07 Oct, 2015 Essential hypertension I10 ; Type 2 diab etes mellitus without complication E11.9 ; Vitamin B12 deficiency E53.8 ; Acquired hypothyroidism E03.9 ; Iron deficiency anemia due to chronic blood loss D50.0 and Hyperlipidemia E78.5 [place] [address] [address] Sep, Essential hypertension I10 ; Vitamin B12 deficiency E53.8 ; Iron deficiency anemia due to chronic blood loss D50.0 ; Type 2 diabetes mellitus without complication E11.9 ; Hyperlipidemia E78.5 and Acquired hypothyroidism E03.9 [place] [address] [address] Sep, [place] [address] [address] Sep, [place] [address] [address] Jul, [place] [address] [address] Jun, [place] [address] [address] Jun, [place] [address] [address] 15 Jun, 2015 Hyperlipidemia 272.4 ; Iron deficiency a nemia 280.9 ; Hypothyroidism 244.9 ; Diabetes mellitus without mention of complication, type II or unspecified type, not stated as uncontrolled 250.00 and Hypertension 401.9 [place] [address] [place] [id number] [place] [address] Jun, [facility] [address] [address] Jun, [facility] [address] [address] May, Hyperlipidemia 272.4 [facility] [address] [address] May, [facility] [address] [address] May, [facility] [address] [address] Apr, Diabetes mellitus without mention of com plication, type II or unspecified type, not stated as uncontrolled 250.00 ; Hypothyroidism 244.9 ; Hyperlipidemia 272.4 ; Pain in joint, lower leg 719.46 and RUQ pain 789.01 [facility] [address] [place] [id number] [place] [address] Mar, Sinusitis 473.9 [facility] [address] [address] Mar, [facility] [address] [address] Mar, [facility] [address] [address] Mar, Hematochezia 578.1 [facility] [address] [place] [id number] [place] [address] February, Sinusitis 473.9 [facility] [address] [address] February, [facility] [address] [address] 14 Jan, 2015 [facility] [address] [address] Jan, [facility] [address] [place] [id number] [facility] [place] [address] 24 Dec, 2014 [facility] [address] [facility] [id number] [place] [address] Dec, [facility] [address] [facility] [id number] [place] [address] Dec, [facility] [address] [id number] [place] [address] Dec, [facility] [address] [facility] [id number] [place] [address] Dec, [facility] [address] [facility] [id number] [place] [address] Dec, [facility] [address] [id number] [place] [address] Dec, [facility] [address] [id number] [place] [address] Dec, [facility] [address] [id number] [place] [address] Dec, [facility] [address] [id number] [place] [address] Dec, [facility] [address] [id number] [place] [address] Dec, [facility] [address] [id number] [place] [address] Nov, [facility] [address] [id number] [place] [address] Nov, [facility] [address] [facility] [id number] [place] [address] Nov, [facility] [address] [id number] [place] [address] Nov, [facility] [address] [id number] [place] [address] Oct, [facility] [address] [id number] [place] [address] Oct, [facility] [address] [id number] [place] [address] Oct, [facility] [address] [id number] [place] [address] Oct, [facility] [address] [id number] [place] [address] Oct, [facility] [address] [id number] [place] [address] Oct, [facility] [place] [facility] [address] [id number] [place] [address] Sep, [facility] [place] [facility] [address] [id number] [place] [address] Sep, [facility] [place] [facility] [address] [id number] [place] [address] Sep, [facility] [place] [facility] [address] [id number] [place] [address] Sep, [facility] [place] [facility] [address] [id number] [place] [address] Sep, [facility] [place] [facility] [address] [id number] [place] [address] Sep, [facility] [place] [facility] [address] [id number] [place] [address] Sep, [facility] [place] [facility] [address] [id number] [place] [address] Aug, [facility] [place] [facility] [address] [id number] [place] [address] Aug, [facility] [place] [facility] [address] [id number] [place] [address] Aug, [facility] [place] [facility] [address] [id number] [place] [address] Aug, [facility] [place] [facility] [address] [id number] [place] [address] Aug, [facility] [place] [facility] [address] [id number] [place] [address] Aug, [facility] [place] [facility] [address] [id number] [place] [address] Aug, [facility] [place] [facility] [address] [id number] [place] [address] Aug, [facility] [place] [facility] [address] [id number] [place] [address] Aug, [facility] [place] [facility] [address] [id number] [place] [address] Aug, [facility] [place] [facility] [address] [id number] [place] [address] Aug, [facility] [place] [facility] [address] [id number] [place] [address] Aug, [facility] [place] [facility] [address] [id number] [place] [address] Aug, [facility] [place] [facility] [address] [id number] [place] [address] Aug, [facility] [place] [facility] [address] [id number] [place] [address] Jul, [facility] [place] [facility] [address] [id number] [place] [address] Jul, [facility] [place] [facility] [address] [id number] [place] [address] Jul, [facility] [place] [facility] [address] [id number] [place] [address] Jul, [facility] [place] [facility] [address] [id number] [place] [address] 24 Jun, 2014 [facility] [place] [facility] [address] [id number] [place] [address] 24 Jun, 2014 [facility] [place] [facility] [address] [id number] [place] [address] Jun, [facility] [place] [facility] [address] [id number] [place] [address] Jun, 2013 [facility] [place] [facility] [address] [id number] [place] [address] 19 Jun, 2013 [facility] [place] [facility] [address] [facility] [id number] [place] [address] 19 Jun, 2013 [facility] [place] [facility] [address] [facility] [id number] [place] [address] 11 Jun, 2013 [facility] [place] [facility] [address] [facility] [id number] [place] [address] Jun, 2013 [facility] [place] [facility] [address] [facility] [id number] [place] [address] Jun, 2013 [facility] [place] [facility] [address] [facility] [id number] [place] [address] Jun, [facility] [place] [facility] [address] [id number] [place] [address] Jun, [facility] [place] [facility] [address] [id number] [place] [address] Jun, [facility] [place] [facility] [address] [id number] [place] [address] Jun, [facility] [place] [facility] [address] [facility] [id number] [place] [address] Jun, [facility] [place] [facility] [address] [id number] [place] [address] 14 May, 2014 [facility] [place] [facility] [address] [id number] [place] [address] May, [facility] [place] [facility] [address] [facility] [id number] [place] [address] May, [facility] [place] [facility] [address] [facility] [id number] [place] [address] May, [facility] [place] [facility] [address] [id number] [place] [address] May, [facility] [place] [facility] [address] [id number] [place] [address] May, [facility] [place] [facility] [address] [id number] [place] [address] Apr, [facility] [place] [facility] [address] [id number] [facility] [place] [address] Apr, [facility] [place] [facility] [address] [id number] [place] [address] Apr, [facility] [place] [facility] [address] [facility] [id number] [facility] [place] [address] Apr, [facility] [place] [facility] [address] [id number] [place] [address] Apr, [facility] [place] [facility] [address] [facility] [id number] [place] [address] Apr, [facility] [place] [facility] [address] [id number] [facility] [place] [address] Apr, [facility] [place] [facility] [address] [facility] [id number] [place] [address] Apr, [facility] [place] [facility] [address] [id number] [place] [address] Apr, [facility] [place] [facility] [address] [facility] [id number] [facility] [place] [address] Apr, [facility] [place] [facility] [address] [id number] [place] [address] Apr, [facility] [place] [facility] [address] [id number] [place] [address] Mar, [facility] [place] [facility] [address] [id number] [place] [address] Mar, [facility] [place] [facility] [address] [facility] [id number] [place] [address] Mar, [facility] [place] [facility] [address] [facility] [id number] [place] [address] Mar, [facility] [place] [facility] [address] [facility] [id number] [place] [address] February, [facility] [place] [facility] [address] [id number] [place] [address] February, [facility] [place] [facility] [address] [id number] [facility] [place] [address] Jan, [facility] [address] [id number] [place] [address] Jan, [facility] [address] [facility] [id number] Jan, [facility] [address] [id number] [facility] [place] [address] Jan, [facility] [place] [facility] [address] [id number] [facility] [place] [address] Jan, [facility] [place] [facility] [address] [id number] [facility] [place] [address] Jan, [facility] [place] [facility] [address] [id number] [place] [address] Jan, [facility] [address] [id number] [facility] [place] [address] Jan, [facility] [place] [facility] [address] [id number] [facility] [place] [address] Jan, [facility] [place] [facility] [address] [id number] [place] [address] Jan, [facility] [place] [facility] [address] [id number] [place] [address] Jan, [facility] [place] [facility] [address] [id number] [place] [address] Jan, [facility] [place] [facility] [address] [id number] [place] [address] Jan, [facility] [place] [facility] [address] [id number] [place] [address] Jan, [facility] [place] [facility] [address] [id number] [place] [address] Jan, [facility] [place] [facility] [address] [id number] [place] [address] Jan, [facility] [place] [facility] [address] [id number] [place] [address] Jan, [facility] [place] [facility] [address] [id number] [place] [address] Dec, [facility] [place] [facility] [address] [facility] [id number] [place] [address] Dec, [facility] [place] [facility] [address] [id number] [place] [address] Dec, [facility] [place] [facility] [address] [id number] [place] [address] Dec, [facility] [place] [facility] [address] [id number] [place] [address] Dec, [facility] [place] [facility] [address] [id number] [place] [address] Dec, [facility] [place] [facility] [address] [id number] [place] [address] Dec, [facility] [place] [facility] [address] [id number] [place] [address] Nov, [facility] [place] [facility] [address] [id number] [place] [address] Nov, [facility] [place] [facility] [address] [id number] [place] [address] Nov, [facility] [place] [facility] [address] [id number] [place] [address] Nov, [facility] [place] [facility] [address] [id number] [place] [address] Nov, [facility] [place] [facility] [address] [id number] [place] [address] Nov, [facility] [place] [facility] [address] [id number] [place] [address] Nov, [facility] [place] [facility] [address] [id number] [place] [address] Oct, [facility] [place] [facility] [address] [id number] [place] [address] Oct, [facility] [place] [facility] [address] [id number] [place] [address] Sep, [facility] [place] [facility] [address] [id number] [place] [address] Sep, [facility] [place] [facility] [address] [id number] [place] [address] Sep, [facility] [place] [facility] [address] [id number] [place] [address] Sep, [facility] [place] [facility] [address] [id number] [place] [address] Sep, [facility] [place] [facility] [address] [id number] [place] [address] Sep, [facility] [place] [facility] [address] [id number] [place] [address] Sep, [facility] [place] [facility] [address] [id number] [place] [address] Sep, [facility] [place] [facility] [address] [id number] [place] [address] Sep, [facility] [place] [facility] [address] [id number] [place] [address] Sep, [facility] [place] [facility] [address] [id number] [place] [address] Aug, [facility] [place] [facility] [address] [id number] [place] [address] Aug, [facility] [place] [facility] [address] [id number] [place] [address] Aug, [facility] [place] [facility] [address] [id number] [place] [address] Aug, [facility] [place] [facility] [address] [id number] [place] [address] Aug, [facility] [place] [facility] [address] [id number] [place] [address] Jul, [facility] [place] [facility] [address] [id number] [place] [address] Jul, [facility] [place] [facility] [address] [id number] [place] [address] Jul, [facility] [address] [facility] [id number] [place] [address] Jul, IMMUNIZATIONS No Known Immunizations SOCIAL HISTORY [...]
--- OUTSIDE RECORDS SUMMARY | 2020-03-16 11:45 | XMS REPORT ---
Author Author Swathi Benavides Organization [facility] Address [address] [place] [address] Care Team Providers Care Dot Compliance Manager Name Role Phone WIL Benavides Unavailable PROBLEMS Type Condition ICD9-CM Code APY84-PG Code Onset Dates Condition S tatus SNOMED Code Problem Sensorineural hearing loss of right ear H90.41 Active 98029023 Problem Obstructive sleep apnea on CPAP G47.33 Active 49044011 Problem Periodic limb movement sleep disorder G47.61 Active 455924840 Problem Iron deficiency anemia due to chronic blood loss D 50.0 Active 00909177 Problem MACHUCA (nonalcoholic steatohepatitis) K75.81 Active 305057602 Problem Vitamin B12 deficiency E53.8 Active 207278308 Problem Chronic diarrhea K52.9 Active 236 304184 Problem Vitamin D deficiency E55.9 Active 80845269 Problem BMI 50.0-59.9, adult Z68.43 Active 016563377 Problem Fatty liver K76.0 Active 94396376 7 Problem Anxiety F41.9 Active 13670122 Problem Major depressive disorder, recurrent episode, moderate F33.1 Active 299604040 Problem Chronic tension-type headache, intractable G44.221 Active 459344461 Problem Right upper quadrant pain R10.11 Acti ve 54183463 Problem Frequent falls R29.6 Active 37801 2001 Problem Crohn's disease of both small and large intestin e with complication K50.819 Active 17518942 Problem Type 2 diabetes mellitus with other specified complication E11.69 Active 400693099419 Problem Hyperlipidemia, unspecified E78.5 Ac tive 40970592 Problem Mixed stress and urge urinary incontinence N39.46 Active 136278873 Problem Sinusitis chronic, frontal J32.1 Act katlyn 85949093 Problem Seasonal allergies J30.2 Active 4 24672027 Problem Other chronic pain G89.29 Active 8 6065597 Problem Hyperlipidemia E78.5 Active 33892 004 Problem Bilateral primary osteoarthritis of knee M17.0 Active 651330981 Problem Essential hypertension I10 Active 60794002 Problem Acquired hypothyroidism E03.9 Active 056491594 Problem History of hysterectomy for benign disease Z90.710 Active 632069631 Problem Morbid (severe) obesity due to excess calories E66 .01 Active 368410991 Problem Other cirrhosis of liver K74.69 Activ e 23956094 Problem Portal hypertension K76.6 Active 94497289 ALLERGIES No Information ENCOUNTERS Encounter Location Date Diagnosis [place] [address] [address] Jan, [place] [address] [address] Nov, MACHUCA (nonalcoholic steatohepatitis) K75. 81 ; BMI 50.0-59.9, adult Z68.43 and Type 2 diabetes mellitus with other specified complication E11.69 [place] [address] [address] Oct, Morbid (severe) obesity due to excess ca lories E66.01 and Type 2 diabetes mellitus with other specified complication E11.69 [place] [address] [address] Oct, Essential hypertension I10 ; BMI 50.0-59 .9, adult Z68.43 and Morbid (severe) obesity due to excess calories E66.01 [place] [address] [address] Oct, Encounter for Medicare annual wellness e [...] E78.5 and Other cirrhosis of liver K74.69 [place] [address] [address] Oct, [facility] [place] [address] [id number] [place] [address] Sep, Major depressive disorder, recurrent epi sode, moderate F33.1 ; Vitamin B12 deficiency E53.8 ; BMI 50.0-59.9, adult Z68.43 and Essential hypertension I10 [place] [address] [place] [id number] [place] [address] Sep, Breast pain, right N64.4 [address] [place] [address] Sep, Breast pain, right N64.4 [address] [place] [address] Sep, Breast pain, right N64.4 [address] [place] [address] Sep, Breast pain, right N64.4 [place] [address] [place] [id number] [place] [address] Aug, [place] [address] [place] [id number] [place] [address] Aug, Major depressive disorder, recurrent epi sode, moderate F33.1 ; BMI 50.0-59.9, adult Z68.43 ; Type 2 diabetes mellitus without complication E11.9 ; Breast pain, right N64.4 and Encounter for screening mammogram for breast cancer Z12.31 [facility] [address] [place] [address] Jun, Pneumonia of right middle lo be due to infectious organism J18.1 and Cough R05 [facility] [address] [place] [address] Jun, Acute nasopharyngitis J00 [place] [address] [facility] [place] [address] May, Iron deficiency anemia due to chronic [...] Major depressive disorder, recurrent episode, moderate F33.1 [place] [address] [address] May, Hyperlipidemia, unspecified E78.5 ; Othe r cirrhosis of liver K74.69 and Iron deficiency anemia due to chronic blood loss D50.0 [place] [address] [address] February, [facility] [address] [place] [address] February, Acute recurrent pansinusitis J01.41 [facility] [address] [place] [address] February, Acute maxillary sinusitis, r ecurrence not specified J01.00 [place] [address] [address] Jan, Bilateral primary osteoarthritis of knee M17.0 ; Morbid obesity E66.01 ; Viral syndrome B34.9 and Atrial dilatation, left I51.7 [place] [address] [address] Jan, [place] [address] [address] Dec, Trigeminy R00.8 [place] [address] [address] Dec, Essential hypertension I10 ; Morbid obes ity E66.01 ; Low back pain M54.5 ; Other chronic pain G89.29 and Pain in right knee M25.561 [place] [address] [address] Nov, [place] [address] [address] Oct, Palpitations R00.[address] [address] Oct, Encounter for Medicare annual wellness e [...] small and large intestine with complication K50.[address] [address] Oct, [address] [address] Oct, Crohn's disease of both small and large intestine with complication K50.819 [facility] [address] [place] [address] [id number] [address] [place] [address] Jul, Sinusitis chronic, frontal J 32.1 ; Acute mucoid otitis media of both ears H65.113 ; Seasonal allergies J30.2 and BMI 50.0-59.9, adult Z68.[address] [address] Jul, Essential hypertension I10 ; Type 2 diab etes mellitus with other specified complication E11.69 ; BMI 50.0-59.9, adult Z68.43 ; Mixed stress and urge urinary incontinence N39.46 and Mid back pain on right side M54.[address] [address] Jun, Iron deficiency anemia due to chronic bl ood loss D50.0 ; Hyperlipidemia E78.5 ; Type 2 diabetes mellitus with other specified complication E11.69 ; Vitamin B12 deficiency E53.8 and Vitamin D deficiency E55.9 [facility] [address] [facility] [id number] [address] [place] [address] Jun, Cough R05 and BMI 50.0-59.9, adult Z68.43 [place] [address] [address] Jun, [place] [address] [address] May, Iron deficiency anemia due to chronic bl ood loss D50.0 ; Chronic diarrhea K52.9 ; Essential hypertension I10 ; Type 2 diabetes mellitus with other specified complication E11.69 ; Vitamin D deficiency E55.9 ; Colon stricture K56.699 ; Vitamin B12 deficiency E53.8 ; Hyperlipidemia E78.5 and BMI 50.0-59.9, adult Z68.43 [place] [address] [address] May, [place] [address] [address] Apr, Nonhealing wound of heel S91.309A and Christopher dy mass index (BMI) of 50-59.9 in adult Z68.43 [place] [address] [address] Mar, [place] [address] [address] Mar, BMI 50.0-59.9, adult Z68.43 ; Flank pain R10.9 and Weight loss counseling, encounter for Z71.[address] [address] February, [place] [address] [address] Jan, [place] [address] [address] Jan, [facility] [address] [facility] [id number] [address] [place] [address] Jan, Diarrhea due to staphylococc us A04.8 and Diarrhea, unspecified type R19.7 [place] [address] [address] 10 Jan, 2018 Acquired hypothyroidism E03.9 ; Type 2 d iabetes mellitus with other specified complication E11.69 ; Hyperlipidemia E78.5 ; Essential hypertension I10 ; Major depressive disorder, recurrent episode, moderate F33.1 and Vitamin D deficiency E55.9 [place] [address] [address] 03 Jan, 2018 Type 2 diabetes mellitus with other spec ified complication E11.69 ; Hyperlipidemia E78.5 ; Essential hypertension I10 ; Acquired hypothyroidism E03.9 ; Major depressive disorder, recurrent episode, moderate F33.1 ; Vitamin D deficiency E55.9 ; Sinus congestion R09.81 and BMI 50.0-59.9, adult Z68.43 [place] [address] [address] Dec, [place] [address] [address] Sep, Encounter for immunization Z23 [address] [address] Sep, [place] [address] [address] Sep, Vitamin B12 deficiency E53.8 [place] [address] [address] Aug, [place] [address] [address] Aug, BMI 60.0-69.9, adult Z68.44 and Acute no n-recurrent maxillary sinusitis J01.00 [place] [address] [address] 14 Aug, 2017 [place] [address] [address] 02 Aug, 2017 Medicare annual wellness visit, initial Z00.00 ; Screening for breast cancer Z12.31 ; BMI 40.0-44.9, adult Z68.41 and Acquired hypothyroidism E03.9 [place] [address] [address] Jul, Actinic keratosis L57.0 [place] [address] [address] Jul, Actinic keratosis L57.0 [place] [address] [address] Jul, Type 2 diabetes mellitus with other spec ified complication E11.69 ; Actinic keratosis L57.0 and Hypothyroidism, unspecified E03.9 [place] [address] [address] Jul, [place] [address] [address] Jul, [place] [address] [address] Jul, Vitamin B12 deficiency E53.8 [place] [address] [address] Jun, Acquired hypothyroidism E03.9 and Chroni c tension-type headache, intractable G44.221 [place] [address] [address] Jun, Back muscle spasm M62.830 and BMI 50.0-5 9.9, adult Z68.43 [place] [address] [address] Jun, Vitamin B12 deficiency E53.8 [place] [address] [address] Jun, Crohn's disease of both small and large intestine with complication K50.819 [place] [address] [address] Jun, Crohn's disease of both small and large intestine with complication K50.819 [place] [address] [address] May, Hyperlipidemia E78.5 ; Anxiety F41.9 and Essential hypertension I10 [place] [address] [address] May, [place] [address] [address] May, Encounter for immunization Z23 and Vitam in B12 deficiency E53.8 [place] [address] [address] May, [place] [address] [address] Apr, [place] [address] [address] Apr, [place] [address] [address] Apr, Crohn's disease of both small and large intestine with complication K50.819 [place] [address] [address] Apr, Vitamin B12 deficiency E53.8 [place] [address] [address] Apr, Crohn's disease of both small and large intestine with complication K50.819 and Acute pain of right shoulder M25.511 [place] [address] [address] Mar, Type 2 diabetes mellitus without complic ation E11.9 ; Frequent falls R29.6 and Other chest pain R07.89 [place] [address] [address] Mar, [place] [address] [address] Mar, [place] [address] [address] Mar, Type 2 diabetes mellitus without complic ation E11.9 and Blurry vision, bilateral H53.8 [place] [address] [address] Mar, Vitamin B12 deficiency E53.8 [place] [address] [address] Mar, Crohn's disease of both small and large intestine with complication K50.819 [place] [address] [address] February, Vitamin B12 deficiency E53.8 [place] [address] [address] Jan, Crohn's disease of both small and large intestine with complication K50.819 [place] [address] [address] Jan, Crohn's disease of both small and large intestine with complication K50.819 [facility] [address] [facility] [id number] [address] [place] [address] Jan, Dark brown-colored urine R82 .99 and Acute suppurative otitis media of right ear without spontaneous rupture of tympanic membrane, recurrence not specified H66.001 [place] [address] [address] Jan, Encounter for immunization Z23 [place] [address] [address] Dec, Crohn's disease of both small and large intestine with complication K50.819 and Eustachian tube dysfunction, right H69.81 [place] [address] [address] Dec, [place] [address] [address] Dec, Contusion of right knee, initial encount er S80.01XA [place] [address] [address] Dec, [place] [address] [address] 13 Dec, 2016 Acute pain of right knee M25.561 [place] [address] [address] Dec, Iron deficiency anemia due to chronic bl ood loss D50.0 [place] [address] [address] Dec, Hyperlipidemia E78.5 ; Type 2 diabetes m ellitus without complication E11.9 ; Vitamin B12 deficiency E53.8 ; Essential hypertension I10 ; Obstructive sleep apnea on CPAP G47.33 and Periodic limb movement sleep disorder G47.61 [place] [address] [address] 22 Nov, 2016 Type 2 diabetes mellitus without complic ation E11.9 ; Vitamin B12 deficiency E53.8 ; Hyperlipidemia E78.5 ; Essential hypertension I10 ; Obstructive sleep apnea on CPAP G47.33 ; Periodic limb movement sleep disorder G47.61 ; Anxiety F41.9 ; Acquired hypothyroidism E03.9 and Chronic tension-type headache, intractable G44.221 [place] [address] [address] Nov, Crohn's disease of both small and large intestine with complication K50.819 [place] [address] [address] Nov, Vitamin B12 deficiency E53.8 [place] [address] [address] Oct, [place] [address] [address] Oct, Vitamin B12 deficiency E53.8 [place] [address] [address] Sep, [place] [address] [address] Sep, Vitamin B12 deficiency E53.8 [place] [address] [address] Aug, [place] [address] [address] Aug, Vitamin B12 deficiency E53.8 [place] [address] [address] Aug, [place] [address] [address] 24 Jul, 2016 Elevated ALT measurement R74.0 [place] [address] [address] Jul, Hematuria R31.9 ; Acute right-sided thor acic back pain M54.6 ; Major depressive disorder, recurrent episode, moderate F33.1 and Elevated ALT measurement R74.0 [place] [address] [address] Jul, [place] [address] [address] Jul, Elevated ALT measurement R74.0 [place] [address] [address] 14 Jul, 2016 Iron deficiency anemia due to chronic bl ood loss D50.0 [place] [address] [address] 14 Jul, 2016 Type 2 diabetes mellitus without complic ation E11.9 ; Acquired hypothyroidism E03.9 ; Iron deficiency anemia due to chronic blood loss D50.0 ; Hyperlipidemia E78.5 and Essential hypertension I10 [place] [address] [place] [id number] [place] [address] Jun, [place] [address] [address] 20 Jun, 2016 Vitamin B12 deficiency E53.8 [place] [address] [place] [id number] [place] [address] 16 Jun, 2016 Type 2 diabetes mellitus without complic ation E11.9 ; Acquired hypothyroidism E03.9 ; Iron deficiency anemia due to chronic blood loss D50.0 ; Hyperlipidemia E78.5 ; Essential hypertension I10 ; Chronic tension-type headache, intractable G44.221 ; Pulsatile tinnitus, bilateral H93.13 ; Obstructive sleep apnea on CPAP G47.33 and Major depressive disorder, recurrent episode, moderate F33.1 [place] [address] [address] 16 May, 2016 Vitamin B12 deficiency E53.8 [place] [address] [address] 08 May, 2016 [place] [address] [address] Apr, Vitamin B12 deficiency E53.8 [place] [address] [address] 05 Apr, 2016 [place] [address] [address] Mar, Chronic tension-type headache, intractab le G44.221 and Major depressive disorder, recurrent episode, moderate F33.1 [place] [address] [address] 14 Mar, 2016 Vitamin B12 deficiency E53.8 [place] [address] [address] February, [place] [address] [address] February, Vitamin B12 deficiency E53.8 [place] [address] [address] February, [place] [address] [address] Jan, Dysuria R30.0 [place] [address] [address] 22 Jan, 2016 Type 2 diabetes mellitus without complic ation E11.9 and Essential hypertension I10 [place] [address] [address] 15 Jan, 2016 Chronic diarrhea K52.9 [facility] [place] [address] [address] 13 Jan, 2016 [facility] [address] [address] 12 Jan, 2016 Chronic diarrhea K52.9 [place] [address] [address] Jan, [place] [address] [address] Jan, Dysuria R30.0 [place] [address] [address] Jan, Vitamin B12 deficiency E53.8 [place] [address] [address] 07 Jan, 2016 Dysuria R30.0 and Iron deficiency anemia due to chronic blood loss D50.0 [place] [address] [address] 05 Jan, 2016 Dysuria R30.0 [place] [address] [address] 04 Jan, 2016 [place] [address] [address] 15 Dec, 2015 [place] [address] [address] Dec, Iron deficiency anemia due to chronic bl ood loss D50.0 [place] [address] [address] 10 Dec, 2015 Dysuria R30.0 ; Fatigue R53.83 ; Hyperli pidemia E78.5 and Diarrhea R19.7 [place] [address] [address] 09 Dec, 2015 [place] [address] [address] 02 Dec, 2015 [place] [address] [address] 10 Nov, 2015 Vitamin B12 deficiency E53.8 [facility] [address] [address] Oct, Vitamin B12 deficiency E53.8 [facility] [address] [address] Oct, [facility] [address] [facility] [id number] [address] [place] [address] 09 Oct, 2015 Headache R51 [facility] [place] [address] [address] 07 Oct, 2015 Essential hypertension I10 ; Type 2 diab etes mellitus without complication E11.9 ; Vitamin B12 deficiency E53.8 ; Acquired hypothyroidism E03.9 ; Iron deficiency anemia due to chronic blood loss D50.0 and Hyperlipidemia E78.5 [place] [address] [address] Sep, Essential hypertension I10 ; Vitamin B12 deficiency E53.8 ; Iron deficiency anemia due to chronic blood loss D50.0 ; Type 2 diabetes mellitus without complication E11.9 ; Hyperlipidemia E78.5 and Acquired hypothyroidism E03.9 [place] [address] [address] Sep, [place] [address] [address] Sep, [place] [address] [address] Jul, [place] [address] [address] Jun, [place] [address] [address] Jun, [place] [address] [address] 15 Jun, 2015 Hyperlipidemia 272.4 ; Iron deficiency a nemia 280.9 ; Hypothyroidism 244.9 ; Diabetes mellitus without mention of complication, type II or unspecified type, not stated as uncontrolled 250.00 and Hypertension 401.9 [place] [address] [place] [id number] [place] [address] Jun, [facility] [place] [address] [address] Jun, [facility] [place] [address] [address] May, Hyperlipidemia 272.4 [facility] [place] [address] [address] May, [facility] [place] [address] [address] May, [facility] [address] [address] Apr, Diabetes mellitus without mention of com plication, type II or unspecified type, not stated as uncontrolled 250.00 ; Hypothyroidism 244.9 ; Hyperlipidemia 272.4 ; Pain in joint, lower leg 719.46 and RUQ pain 789.01 [facility] [place] [address] [place] [id number] [place] [address] Mar, Sinusitis 473.9 [facility] [place] [address] [address] Mar, [facility] [address] [address] Mar, [facility] [address] [address] Mar, Hematochezia 578.1 [facility] [address] [place] [id number] [place] [address] February, Sinusitis 473.9 [facility] [address] [address] February, [facility] [address] [address] 14 Jan, 2015 [facility] [address] [address] Jan, [facility] [address] [place] [id number] [facility] [address] 24 Dec, 2014 [facility] [address] [facility] [id number] [place] [address] Dec, [facility] [address] [facility] [id number] [place] [address] Dec, [facility] [address] [id number] [place] [address] Dec, [facility] [address] [facility] [id number] [place] [address] Dec, [facility] [address] [facility] [id number] [place] [address] Dec, [facility] [address] [id number] [place] [address] Dec, [facility] [address] [id number] [place] [address] Dec, [facility] [address] [id number] [place] [address] Dec, [facility] [address] [id number] [place] [address] Dec, [facility] [address] [id number] [place] [address] Dec, [facility] [address] [id number] [place] [address] Nov, [facility] [address] [id number] [place] [address] Nov, [facility] [address] [facility] [id number] [place] [address] Nov, [facility] [address] [id number] [place] [address] Nov, [facility] [address] [id number] [place] [address] Oct, [facility] [address] [id number] [place] [address] Oct, [facility] [address] [id number] [place] [address] Oct, [facility] [address] [id number] [place] [address] Oct, [facility] [address] [id number] [place] [address] Oct, [facility] [place] [facility] [address] [id number] [place] [address] Oct, [facility] [place] [facility] [address] [id number] [place] [address] Sep, [facility] [place] [facility] [address] [id number] [place] [address] Sep, [facility] [place] [facility] [address] [id number] [place] [address] Sep, [facility] [place] [facility] [address] [id number] [place] [address] Sep, [facility] [place] [facility] [address] [id number] [place] [address] Sep, [facility] [place] [facility] [address] [id number] [place] [address] Sep, [facility] [place] [facility] [address] [id number] [place] [address] Sep, [facility] [place] [facility] [address] [id number] [place] [address] Aug, [facility] [place] [facility] [address] [id number] [place] [address] Aug, [facility] [place] [facility] [address] [id number] [place] [address] Aug, [facility] [place] [facility] [address] [id number] [place] [address] Aug, [facility] [place] [facility] [address] [id number] [place] [address] Aug, [facility] [place] [facility] [address] [id number] [place] [address] Aug, [facility] [place] [facility] [address] [id number] [place] [address] Aug, [facility] [place] [facility] [address] [id number] [place] [address] Aug, [facility] [place] [facility] [address] [id number] [place] [address] Aug, [facility] [place] [facility] [address] [id number] [place] [address] Aug, [facility] [place] [facility] [address] [id number] [place] [address] Aug, [facility] [place] [facility] [address] [id number] [place] [address] Aug, [facility] [place] [facility] [address] [id number] [place] [address] Aug, [facility] [place] [facility] [address] [id number] [place] [address] Aug, [facility] [place] [facility] [address] [id number] [place] [address] Jul, [facility] [place] [facility] [address] [id number] [place] [address] Jul, [facility] [place] [facility] [address] [id number] [place] [address] Jul, [facility] [place] [facility] [address] [id number] [place] [address] Jul, [facility] [place] [facility] [address] [id number] [place] [address] 24 Jun, 2014 [facility] [place] [facility] [address] [id number] [place] [address] 24 Jun, 2014 [facility] [place] [facility] [address] [id number] [place] [address] Jun, [facility] [place] [facility] [address] [id number] [place] [address] Jun, 2013 [facility] [place] [facility] [address] [id number] [place] [address] 19 Jun, 2013 [facility] [place] [facility] [address] [facility] [id number] [place] [address] 19 Jun, 2013 [facility] [place] [facility] [address] [facility] [id number] [place] [address] 11 Jun, 2013 [facility] [place] [facility] [address] [facility] [id number] [place] [address] Jun, 2013 [facility] [place] [facility] [address] [facility] [id number] [place] [address] Jun, 2013 [facility] [place] [facility] [address] [facility] [id number] [place] [address] Jun, [facility] [place] [facility] [address] [id number] [place] [address] Jun, [facility] [place] [facility] [address] [id number] [place] [address] Jun, [facility] [place] [facility] [address] [id number] [place] [address] Jun, [facility] [place] [facility] [address] [facility] [id number] [place] [address] Jun, [facility] [place] [facility] [address] [id number] [place] [address] 14 May, 2014 [facility] [place] [facility] [address] [id number] [place] [address] May, [facility] [place] [facility] [address] [facility] [id number] [place] [address] May, [facility] [place] [facility] [address] [facility] [id number] [place] [address] May, [facility] [place] [facility] [address] [id number] [place] [address] May, [facility] [place] [facility] [address] [id number] [place] [address] May, [facility] [place] [facility] [address] [id number] [place] [address] Apr, [facility] [place] [facility] [address] [id number] [facility] [address] Apr, [facility] [place] [facility] [address] [id number] [place] [address] Apr, [facility] [place] [facility] [address] [facility] [id number] [facility] [address] Apr, [facility] [place] [facility] [address] [id number] [place] [address] Apr, [facility] [place] [facility] [address] [facility] [id number] [place] [address] Apr, [facility] [place] [facility] [address] [id number] [facility] [address] Apr, [facility] [place] [facility] [address] [facility] [id number] [place] [address] Apr, [facility] [place] [facility] [address] [id number] [place] [address] Apr, [facility] [place] [facility] [address] [facility] [id number] [facility] [address] Apr, [facility] [place] [facility] [address] [id number] [place] [address] Apr, [facility] [place] [facility] [address] [id number] [place] [address] Mar, [facility] [place] [facility] [address] [id number] [place] [address] Mar, [facility] [place] [facility] [address] [facility] [id number] [place] [address] Mar, [facility] [place] [facility] [address] [facility] [id number] [place] [address] Mar, [facility] [place] [facility] [address] [facility] [id number] [place] [address] February, [facility] [place] [facility] [address] [id number] [place] [address] February, [facility] [place] [facility] [address] [id number] [facility] [address] Jan, [facility] [address] [id number] [place] [address] Jan, [facility] [id number] [facility] [id number] Jan, [facility] [address] [id number] [facility] [place] [address] Jan, [facility] [place] [facility] [address] [id number] [facility] [place] [address] Jan, [facility] [place] [facility] [address] [id number] [facility] [place] [address] Jan, [facility] [place] [facility] [address] [id number] [place] [address] Jan, [facility] [address] [id number] [facility] [place] [address] Jan, [facility] [place] [facility] [address] [id number] [facility] [address] Jan, [facility] [place] [facility] [address] [id number] [place] [address] Jan, [facility] [place] [facility] [address] [id number] [place] [address] Jan, [facility] [place] [facility] [address] [id number] [place] [address] Jan, [facility] [place] [facility] [address] [id number] [place] [address] Jan, [facility] [place] [facility] [address] [id number] [place] [address] Jan, [facility] [place] [facility] [address] [id number] [place] [address] Jan, [facility] [place] [facility] [address] [id number] [place] [address] Jan, [facility] [place] [facility] [address] [id number] [place] [address] Jan, [facility] [place] [facility] [address] [id number] [place] [address] Dec, [facility] [place] [facility] [address] [facility] [id number] [place] [address] Dec, [facility] [place] [facility] [address] [id number] [place] [address] Dec, [facility] [place] [facility] [address] [id number] [place] [address] Dec, [facility] [place] [facility] [address] [id number] [place] [address] Dec, [facility] [place] [facility] [address] [id number] [place] [address] Dec, [facility] [place] [facility] [address] [id number] [place] [address] Dec, [facility] [place] [facility] [address] [id number] [place] [address] Nov, [facility] [place] [facility] [address] [id number] [place] [address] Nov, [facility] [place] [facility] [address] [id number] [place] [address] Nov, [facility] [place] [facility] [address] [id number] [place] [address] Nov, [facility] [place] [facility] [address] [id number] [place] [address] Nov, [facility] [place] [facility] [address] [id number] [place] [address] Nov, [facility] [place] [facility] [address] [id number] [place] [address] Nov, [facility] [place] [facility] [address] [id number] [place] [address] Oct, [facility] [place] [facility] [address] [id number] [place] [address] Oct, [facility] [place] [facility] [address] [id number] [place] [address] Sep, [facility] [place] [facility] [address] [id number] [place] [address] Sep, [facility] [place] [facility] [address] [id number] [place] [address] Sep, [facility] [place] [facility] [address] [id number] [place] [address] Sep, [facility] [place] [facility] [address] [id number] [place] [address] Sep, [facility] [place] [facility] [address] [id number] [place] [address] Sep, [facility] [place] [facility] [address] [id number] [place] [address] Sep, [facility] [place] [facility] [address] [id number] [place] [address] Sep, [facility] [place] [facility] [address] [id number] [place] [address] Sep, [facility] [place] [facility] [address] [id number] [place] [address] Sep, [facility] [place] [facility] [address] [id number] [place] [address] Aug, [facility] [place] [facility] [address] [id number] [place] [address] Aug, [facility] [place] [facility] [address] [id number] [place] [address] Aug, [facility] [place] [facility] [address] [id number] [place] [address] Aug, [facility] [place] [facility] [address] [id number] [place] [address] Aug, [facility] [place] [facility] [address] [id number] [place] [address] Jul, [facility] [place] [facility] [address] [id number] [place] [address] Jul, [facility] [place] [facility] [address] [id number] [place] [address] Jul, [facility] [place] [address] [facility] [id number] [place] [address] Jul, IMMUNIZATIONS No Known Immunizations SOCIAL HISTORY [...]
--- OUTSIDE RECORDS SUMMARY | 2020-03-16 11:45 | XMS REPORT ---
Author Author Swathi Benavides Organization [facility] Address [address] [place] [address] Care Team Providers Care Anesthesiology Faculty Name Role Phone WIL Benavides Unavailable PROBLEMS Type Condition ICD9-CM Code DXY80-RK Code Onset Dates Condition S tatus SNOMED Code Problem Sensorineural hearing loss of right ear H90.41 Active 45779954 Problem Obstructive sleep apnea on CPAP G47.33 Active 32490051 Problem Periodic limb movement sleep disorder G47.61 Active 139176523 Problem Iron deficiency anemia due to chronic blood loss D 50.0 Active 26689464 Problem MACHUCA (nonalcoholic steatohepatitis) K75.81 Active 298918651 Problem Vitamin B12 deficiency E53.8 Active 966606067 Problem Chronic diarrhea K52.9 Active 236 051484 Problem Vitamin D deficiency E55.9 Active 81689052 Problem BMI 50.0-59.9, adult Z68.43 Active 443386964 Problem Fatty liver K76.0 Active 92320763 7 Problem Anxiety F41.9 Active 91962177 Problem Major depressive disorder, recurrent episode, moderate F33.1 Active 628709535 Problem Chronic tension-type headache, intractable G44.221 Active 189362859 Problem Right upper quadrant pain R10.11 Acti ve 40131850 Problem Frequent falls R29.6 Active 13044 2001 Problem Crohn's disease of both small and large intestin e with complication K50.819 Active 33521520 Problem Type 2 diabetes mellitus with other specified complication E11.69 Active 481043763751 Problem Hyperlipidemia, unspecified E78.5 Ac tive 10256654 Problem Mixed stress and urge urinary incontinence N39.46 Active 949735252 Problem Sinusitis chronic, frontal J32.1 Act katlyn 88869357 Problem Seasonal allergies J30.2 Active 4 33439684 Problem Other chronic pain G89.29 Active 8 8303320 Problem Hyperlipidemia E78.5 Active 99309 004 Problem Bilateral primary osteoarthritis of knee M17.0 Active 954527735 Problem Essential hypertension I10 Active 01219249 Problem Acquired hypothyroidism E03.9 Active 620546854 Problem History of hysterectomy for benign disease Z90.710 Active 789948947 Problem Morbid (severe) obesity due to excess calories E66 .01 Active 083634114 Problem Other cirrhosis of liver K74.69 Activ e 78361661 Problem Portal hypertension K76.6 Active 73148365 ALLERGIES No Information ENCOUNTERS Encounter Location Date Diagnosis [place] [address] [address] Jan, [place] [address] [address] Nov, MACHUCA (nonalcoholic steatohepatitis) K75. 81 ; BMI 50.0-59.9, adult Z68.43 and Type 2 diabetes mellitus with other specified complication E11.69 [place] [address] [address] Oct, Morbid (severe) obesity due to excess ca lories E66.01 and Type 2 diabetes mellitus with other specified complication E11.69 [place] [address] [address] Oct, Essential hypertension I10 ; BMI 50.0-59 .9, adult Z68.43 and Morbid (severe) obesity due to excess calories E66.01 [place] [address] [address] Oct, Encounter for Medicare annual wellness e [...] E78.5 and Other cirrhosis of liver K74.69 [place] [address] [address] Oct, [facility] [address] [id number] [place] [address] Sep, Major depressive disorder, recurrent epi sode, moderate F33.1 ; Vitamin B12 deficiency E53.8 ; BMI 50.0-59.9, adult Z68.43 and Essential hypertension I10 [place] [address] [place] [id number] [place] [address] Sep, Breast pain, right N64.4 [address] [place] [address] Sep, Breast pain, right N64.4 [address] [place] [address] Sep, Breast pain, right N64.4 [address] [place] [address] Sep, Breast pain, right N64.4 [place] [address] [place] [id number] [place] [address] Aug, [place] [address] [place] [id number] [place] [address] Aug, Major depressive disorder, recurrent epi sode, moderate F33.1 ; BMI 50.0-59.9, adult Z68.43 ; Type 2 diabetes mellitus without complication E11.9 ; Breast pain, right N64.4 and Encounter for screening mammogram for breast cancer Z12.31 [facility] [address] [place] [address] Jun, Pneumonia of right middle lo be due to infectious organism J18.1 and Cough R05 [facility] IN [facility] [address] [place] [address] Jun, Acute nasopharyngitis J00 [place] [address] [id number] [place] [address] May, Iron deficiency anemia due to chronic [...] Major depressive disorder, recurrent episode, moderate F33.1 [place] [address] [address] May, Hyperlipidemia, unspecified E78.5 ; Othe r cirrhosis of liver K74.69 and Iron deficiency anemia due to chronic blood loss D50.0 [place] [address] [address] February, [facility] [address] [place] [address] February, Acute recurrent pansinusitis J01.41 [facility] [address] [place] [address] February, Acute maxillary sinusitis, r ecurrence not specified J01.00 [place] [address] [address] Jan, Bilateral primary osteoarthritis of knee M17.0 ; Morbid obesity E66.01 ; Viral syndrome B34.9 and Atrial dilatation, left I51.7 [place] [address] [address] Jan, [place] [address] [address] Dec, Trigeminy R00.8 [place] [address] [address] Dec, Essential hypertension I10 ; Morbid obes ity E66.01 ; Low back pain M54.5 ; Other chronic pain G89.29 and Pain in right knee M25.561 [place] [address] [address] Nov, [place] [address] [address] Oct, Palpitations R00.[address] [address] Oct, Encounter for Medicare annual wellness e [...] small and large intestine with complication K50.[address] [address] Oct, [address] [address] Oct, Crohn's disease of both small and large intestine with complication K50.819 [facility] [address] [place] [address] [id number] [place] [address] Jul, Sinusitis chronic, frontal J 32.1 ; Acute mucoid otitis media of both ears H65.113 ; Seasonal allergies J30.2 and BMI 50.0-59.9, adult Z68.[address] [address] Jul, Essential hypertension I10 ; Type 2 diab etes mellitus with other specified complication E11.69 ; BMI 50.0-59.9, adult Z68.43 ; Mixed stress and urge urinary incontinence N39.46 and Mid back pain on right side M54.[address] [address] Jun, Iron deficiency anemia due to chronic bl ood loss D50.0 ; Hyperlipidemia E78.5 ; Type 2 diabetes mellitus with other specified complication E11.69 ; Vitamin B12 deficiency E53.8 and Vitamin D deficiency E55.9 [facility] [address] [facility] [id number] [address] [place] [address] Jun, Cough R05 and BMI 50.0-59.9, adult Z68.43 [place] [address] [address] Jun, [place] [address] [address] May, Iron deficiency anemia due to chronic bl ood loss D50.0 ; Chronic diarrhea K52.9 ; Essential hypertension I10 ; Type 2 diabetes mellitus with other specified complication E11.69 ; Vitamin D deficiency E55.9 ; Colon stricture K56.699 ; Vitamin B12 deficiency E53.8 ; Hyperlipidemia E78.5 and BMI 50.0-59.9, adult Z68.43 [place] [address] [address] May, [place] [address] [address] Apr, Nonhealing wound of heel S91.309A and Christopher dy mass index (BMI) of 50-59.9 in adult Z68.43 [place] [address] [address] Mar, [place] [address] [address] Mar, BMI 50.0-59.9, adult Z68.43 ; Flank pain R10.9 and Weight loss counseling, encounter for Z71.[address] [address] February, [place] [address] [address] Jan, [place] [address] [address] Jan, [facility] [address] [facility] [id number] [address] [place] [address] Jan, Diarrhea due to staphylococc us A04.8 and Diarrhea, unspecified type R19.7 [place] [address] [address] 10 Jan, 2018 Acquired hypothyroidism E03.9 ; Type 2 d iabetes mellitus with other specified complication E11.69 ; Hyperlipidemia E78.5 ; Essential hypertension I10 ; Major depressive disorder, recurrent episode, moderate F33.1 and Vitamin D deficiency E55.9 [place] [address] [address] 03 Jan, 2018 Type 2 diabetes mellitus with other spec ified complication E11.69 ; Hyperlipidemia E78.5 ; Essential hypertension I10 ; Acquired hypothyroidism E03.9 ; Major depressive disorder, recurrent episode, moderate F33.1 ; Vitamin D deficiency E55.9 ; Sinus congestion R09.81 and BMI 50.0-59.9, adult Z68.43 [place] [address] [address] Dec, [place] [address] [address] Sep, Encounter for immunization Z23 [address] [address] Sep, [place] [address] [address] Sep, Vitamin B12 deficiency E53.8 [place] [address] [address] Aug, [place] [address] [address] Aug, BMI 60.0-69.9, adult Z68.44 and Acute no n-recurrent maxillary sinusitis J01.00 [place] [address] [address] 14 Aug, 2017 [place] [address] [address] 02 Aug, 2017 Medicare annual wellness visit, initial Z00.00 ; Screening for breast cancer Z12.31 ; BMI 40.0-44.9, adult Z68.41 and Acquired hypothyroidism E03.9 [place] [address] [address] Jul, Actinic keratosis L57.0 [place] [address] [address] Jul, Actinic keratosis L57.0 [place] [address] [address] Jul, Type 2 diabetes mellitus with other spec ified complication E11.69 ; Actinic keratosis L57.0 and Hypothyroidism, unspecified E03.9 [place] [address] [address] Jul, [place] [address] [address] Jul, [place] [address] [address] Jul, Vitamin B12 deficiency E53.8 [place] [address] [address] Jun, Acquired hypothyroidism E03.9 and Chroni c tension-type headache, intractable G44.221 [place] [address] [address] Jun, Back muscle spasm M62.830 and BMI 50.0-5 9.9, adult Z68.43 [place] [address] [address] Jun, Vitamin B12 deficiency E53.8 [place] [address] [address] Jun, Crohn's disease of both small and large intestine with complication K50.819 [place] [address] [address] Jun, Crohn's disease of both small and large intestine with complication K50.819 [place] [address] [address] May, Hyperlipidemia E78.5 ; Anxiety F41.9 and Essential hypertension I10 [place] [address] [address] May, [place] [address] [address] May, Encounter for immunization Z23 and Vitam in B12 deficiency E53.8 [place] [address] [address] May, [place] [address] [address] Apr, [place] [address] [address] Apr, [place] [address] [address] Apr, Crohn's disease of both small and large intestine with complication K50.819 [place] [address] [address] Apr, Vitamin B12 deficiency E53.8 [place] [address] [address] Apr, Crohn's disease of both small and large intestine with complication K50.819 and Acute pain of right shoulder M25.511 [place] [address] [address] Mar, Type 2 diabetes mellitus without complic ation E11.9 ; Frequent falls R29.6 and Other chest pain R07.89 [place] [address] [address] Mar, [place] [address] [address] Mar, [place] [address] [address] Mar, Type 2 diabetes mellitus without complic ation E11.9 and Blurry vision, bilateral H53.8 [place] [address] [address] Mar, Vitamin B12 deficiency E53.8 [place] [address] [address] Mar, Crohn's disease of both small and large intestine with complication K50.819 [place] [address] [address] February, Vitamin B12 deficiency E53.8 [place] [address] [address] Jan, Crohn's disease of both small and large intestine with complication K50.819 [place] [address] [address] Jan, Crohn's disease of both small and large intestine with complication K50.819 [facility] [address] [facility] [id number] [address] [place] [address] Jan, Dark brown-colored urine R82 .99 and Acute suppurative otitis media of right ear without spontaneous rupture of tympanic membrane, recurrence not specified H66.001 [place] [address] [address] Jan, Encounter for immunization Z23 [place] [address] [address] Dec, Crohn's disease of both small and large intestine with complication K50.819 and Eustachian tube dysfunction, right H69.81 [place] [address] [address] Dec, [place] [address] [address] Dec, Contusion of right knee, initial encount er S80.01XA [place] [address] [address] Dec, [place] [address] [address] 13 Dec, 2016 Acute pain of right knee M25.561 [place] [address] [address] Dec, Iron deficiency anemia due to chronic bl ood loss D50.0 [place] [address] [address] Dec, Hyperlipidemia E78.5 ; Type 2 diabetes m ellitus without complication E11.9 ; Vitamin B12 deficiency E53.8 ; Essential hypertension I10 ; Obstructive sleep apnea on CPAP G47.33 and Periodic limb movement sleep disorder G47.61 [place] [address] [address] 22 Nov, 2016 Type 2 diabetes mellitus without complic ation E11.9 ; Vitamin B12 deficiency E53.8 ; Hyperlipidemia E78.5 ; Essential hypertension I10 ; Obstructive sleep apnea on CPAP G47.33 ; Periodic limb movement sleep disorder G47.61 ; Anxiety F41.9 ; Acquired hypothyroidism E03.9 and Chronic tension-type headache, intractable G44.221 [place] [address] [address] Nov, Crohn's disease of both small and large intestine with complication K50.819 [place] [address] [address] Nov, Vitamin B12 deficiency E53.8 [place] [address] [address] Oct, [place] [address] [address] Oct, Vitamin B12 deficiency E53.8 [place] [address] [address] Sep, [place] [address] [address] Sep, Vitamin B12 deficiency E53.8 [place] [address] [address] Aug, [place] [address] [address] Aug, Vitamin B12 deficiency E53.8 [place] [address] [address] Aug, [place] [address] [address] 24 Jul, 2016 Elevated ALT measurement R74.0 [place] [address] [address] Jul, Hematuria R31.9 ; Acute right-sided thor acic back pain M54.6 ; Major depressive disorder, recurrent episode, moderate F33.1 and Elevated ALT measurement R74.0 [place] [address] [address] Jul, [place] [address] [address] Jul, Elevated ALT measurement R74.0 [place] [address] [address] 14 Jul, 2016 Iron deficiency anemia due to chronic bl ood loss D50.0 [place] [address] [address] 14 Jul, 2016 Type 2 diabetes mellitus without complic ation E11.9 ; Acquired hypothyroidism E03.9 ; Iron deficiency anemia due to chronic blood loss D50.0 ; Hyperlipidemia E78.5 and Essential hypertension I10 [place] [address] [place] [id number] [place] [address] Jun, [place] [address] [address] 20 Jun, 2016 Vitamin B12 deficiency E53.8 [place] [address] [place] [id number] [place] [address] 16 Jun, 2016 Type 2 diabetes mellitus without complic ation E11.9 ; Acquired hypothyroidism E03.9 ; Iron deficiency anemia due to chronic blood loss D50.0 ; Hyperlipidemia E78.5 ; Essential hypertension I10 ; Chronic tension-type headache, intractable G44.221 ; Pulsatile tinnitus, bilateral H93.13 ; Obstructive sleep apnea on CPAP G47.33 and Major depressive disorder, recurrent episode, moderate F33.1 [place] [address] [address] 16 May, 2016 Vitamin B12 deficiency E53.8 [place] [address] [address] 08 May, 2016 [place] [address] [address] Apr, Vitamin B12 deficiency E53.8 [place] [address] [address] 05 Apr, 2016 [place] [address] [address] Mar, Chronic tension-type headache, intractab le G44.221 and Major depressive disorder, recurrent episode, moderate F33.1 [place] [address] [address] 14 Mar, 2016 Vitamin B12 deficiency E53.8 [place] [address] [address] February, [place] [address] [address] February, Vitamin B12 deficiency E53.8 [place] [address] [address] February, [place] [address] [address] Jan, Dysuria R30.0 [place] [address] [address] 22 Jan, 2016 Type 2 diabetes mellitus without complic ation E11.9 and Essential hypertension I10 [place] [address] [address] 15 Jan, 2016 Chronic diarrhea K52.9 [facility] [address] [address] 13 Jan, 2016 [facility] [address] [address] 12 Jan, 2016 Chronic diarrhea K52.9 [place] [address] [address] Jan, [place] [address] [address] Jan, Dysuria R30.0 [place] [address] [address] Jan, Vitamin B12 deficiency E53.8 [place] [address] [address] 07 Jan, 2016 Dysuria R30.0 and Iron deficiency anemia due to chronic blood loss D50.0 [place] [address] [address] 05 Jan, 2016 Dysuria R30.0 [place] [address] [address] 04 Jan, 2016 [place] [address] [address] 15 Dec, 2015 [place] [address] [address] Dec, Iron deficiency anemia due to chronic bl ood loss D50.0 [place] [address] [address] 10 Dec, 2015 Dysuria R30.0 ; Fatigue R53.83 ; Hyperli pidemia E78.5 and Diarrhea R19.7 [place] [address] [address] 09 Dec, 2015 [place] [address] [address] 02 Dec, 2015 [place] [address] [address] 10 Nov, 2015 Vitamin B12 deficiency E53.8 [facility] [address] [address] Oct, Vitamin B12 deficiency E53.8 [facility] [address] [address] Oct, [facility] [address] [facility] [id number] [address] [place] [address] 09 Oct, 2015 Headache R51 [facility] [address] [address] 07 Oct, 2015 Essential hypertension I10 ; Type 2 diab etes mellitus without complication E11.9 ; Vitamin B12 deficiency E53.8 ; Acquired hypothyroidism E03.9 ; Iron deficiency anemia due to chronic blood loss D50.0 and Hyperlipidemia E78.5 [place] [address] [address] Sep, Essential hypertension I10 ; Vitamin B12 deficiency E53.8 ; Iron deficiency anemia due to chronic blood loss D50.0 ; Type 2 diabetes mellitus without complication E11.9 ; Hyperlipidemia E78.5 and Acquired hypothyroidism E03.9 [place] [address] [address] Sep, [place] [address] [address] Sep, [place] [address] [address] Jul, [place] [address] [address] Jun, [place] [address] [address] Jun, [place] [address] [address] 15 Jun, 2015 Hyperlipidemia 272.4 ; Iron deficiency a nemia 280.9 ; Hypothyroidism 244.9 ; Diabetes mellitus without mention of complication, type II or unspecified type, not stated as uncontrolled 250.00 and Hypertension 401.9 [place] [address] [place] [id number] [place] [address] Jun, [facility] [address] [address] Jun, [facility] [address] [address] May, Hyperlipidemia 272.4 [facility] [address] [address] May, [facility] [address] [address] May, [facility] [address] [address] Apr, Diabetes mellitus without mention of com plication, type II or unspecified type, not stated as uncontrolled 250.00 ; Hypothyroidism 244.9 ; Hyperlipidemia 272.4 ; Pain in joint, lower leg 719.46 and RUQ pain 789.01 [facility] [address] [place] [id number] [place] [address] Mar, Sinusitis 473.9 [facility] [address] [address] Mar, [facility] [address] [address] Mar, [facility] [address] [address] Mar, Hematochezia 578.1 [facility] [address] [place] [id number] [place] [address] February, Sinusitis 473.9 [facility] [address] [address] February, [facility] [address] [address] 14 Jan, 2015 [facility] [address] [address] Jan, [facility] [address] [place] [id number] [facility] [address] 24 Dec, 2014 [facility] [address] [facility] [id number] [place] [address] Dec, [facility] [address] [facility] [id number] [place] [address] Dec, [facility] [address] [id number] [place] [address] Dec, [facility] [address] [facility] [id number] [place] [address] Dec, [facility] [address] [facility] [id number] [place] [address] Dec, [facility] [address] [id number] [place] [address] Dec, [facility] [address] [id number] [place] [address] Dec, [facility] [address] [id number] [place] [address] Dec, [facility] [address] [id number] [place] [address] Dec, [facility] [address] [id number] [place] [address] Dec, [facility] [address] [id number] [place] [address] Nov, [facility] [address] [id number] [place] [address] Nov, [facility] [address] [facility] [id number] [place] [address] Nov, [facility] [address] [id number] [place] [address] Nov, [facility] [address] [id number] [place] [address] Oct, [facility] [address] [id number] [place] [address] Oct, [facility] [address] [id number] [place] [address] Oct, [facility] [address] [id number] [place] [address] Oct, [facility] [address] [id number] [place] [address] Oct, [facility] [address] [id number] [place] [address] Oct, [facility] [address] [id number] [place] [address] Sep, [facility] [address] [id number] [place] [address] Sep, [facility] [address] [id number] [place] [address] Sep, [facility] [address] [id number] [place] [address] Sep, [facility] [address] [id number] [place] [address] Sep, [facility] [address] [id number] [place] [address] Sep, [facility] [place] [facility] [address] [id number] [place] [address] Sep, [facility] [place] [facility] [address] [id number] [place] [address] Aug, [facility] [place] [facility] [address] [id number] [place] [address] Aug, [facility] [place] [facility] [address] [id number] [place] [address] Aug, [facility] [place] [facility] [address] [id number] [place] [address] Aug, [facility] [place] [facility] [address] [id number] [place] [address] Aug, [facility] [place] [facility] [address] [id number] [place] [address] Aug, [facility] [place] [facility] [address] [id number] [place] [address] Aug, [facility] [place] [facility] [address] [id number] [place] [address] Aug, [facility] [place] [facility] [address] [id number] [place] [address] Aug, [facility] [place] [facility] [address] [id number] [place] [address] Aug, [facility] [place] [facility] [address] [id number] [place] [address] Aug, [facility] [place] [facility] [address] [id number] [place] [address] Aug, [facility] [place] [facility] [address] [id number] [place] [address] Aug, [facility] [place] [facility] [address] [id number] [place] [address] Aug, [facility] [place] [facility] [address] [id number] [place] [address] Jul, [facility] [place] [facility] [address] [id number] [place] [address] Jul, [facility] [place] [facility] [address] [id number] [place] [address] Jul, [facility] [place] [facility] [address] [id number] [place] [address] Jul, [facility] [place] [facility] [address] [id number] [place] [address] 24 Jun, 2014 [facility] [place] [facility] [address] [id number] [place] [address] 24 Jun, 2014 [facility] [place] [facility] [address] [id number] [place] [address] Jun, [facility] [place] [facility] [address] [id number] [place] [address] Jun, 2013 [facility] [place] [facility] [address] [id number] [place] [address] 19 Jun, 2013 [facility] [place] [facility] [address] [facility] [id number] [place] [address] 19 Jun, 2013 [facility] [place] [facility] [address] [facility] [id number] [place] [address] 11 Jun, 2013 [facility] [place] [facility] [address] [facility] [id number] [place] [address] Jun, 2013 [facility] [place] [facility] [address] [facility] [id number] [place] [address] Jun, 2013 [facility] [place] [facility] [address] [facility] [id number] [place] [address] Jun, [facility] [place] [facility] [address] [id number] [place] [address] Jun, [facility] [place] [facility] [address] [id number] [place] [address] Jun, [facility] [place] [facility] [address] [id number] [place] [address] Jun, [facility] [place] [facility] [address] [facility] [id number] [place] [address] Jun, [facility] [place] [facility] [address] [id number] [place] [address] 14 May, 2014 [facility] [place] [facility] [address] [id number] [place] [address] May, [facility] [place] [facility] [address] [facility] [id number] [place] [address] May, [facility] [place] [facility] [address] [facility] [id number] [place] [address] May, [facility] [place] [facility] [address] [id number] [place] [address] May, [facility] [place] [facility] [address] [id number] [place] [address] May, [facility] [place] [facility] [address] [id number] [place] [address] Apr, [facility] [place] [facility] [address] [id number] [facility] [place] [address] Apr, [facility] [place] [facility] [address] [id number] [place] [address] Apr, [facility] [place] [facility] [address] [facility] [id number] [facility] [place] [address] Apr, [facility] [place] [facility] [address] [id number] [place] [address] Apr, [facility] [place] [facility] [address] [facility] [id number] [place] [address] Apr, [facility] [place] [facility] [address] [id number] [facility] [place] [address] Apr, [facility] [place] [facility] [address] [facility] [id number] [place] [address] Apr, [facility] [place] [facility] [address] [id number] [place] [address] Apr, [facility] [place] [facility] [address] [facility] [id number] [facility] [place] [address] Apr, [facility] [place] [facility] [address] [id number] [place] [address] Apr, [facility] [place] [facility] [address] [id number] [place] [address] Mar, [facility] [place] [facility] [address] [id number] [place] [address] Mar, [facility] [place] [facility] [address] [facility] [id number] [place] [address] Mar, [facility] [place] [facility] [address] [facility] [id number] [place] [address] Mar, [facility] [place] [facility] [address] [facility] [id number] [place] [address] February, [facility] [place] [facility] [address] [id number] [place] [address] February, [facility] [place] [facility] [address] [id number] [facility] [place] [address] Jan, [facility] [address] [id number] [place] [address] Jan, [address] [facility] [address] [id number] [facility] [id number] Jan, [facility] [address] [id number] [facility] [place] [address] Jan, [facility] [place] [facility] [address] [id number] [facility] [place] [address] Jan, [facility] [place] [facility] [address] [id number] [facility] [place] [address] Jan, [facility] [place] [facility] [address] [id number] [place] [address] Jan, [facility] [address] [id number] [facility] [place] [address] Jan, [facility] [place] [facility] [address] [id number] [facility] [place] [address] Jan, [facility] [place] [facility] [address] [id number] [place] [address] Jan, [facility] [place] [facility] [address] [id number] [place] [address] Jan, [facility] [place] [facility] [address] [id number] [place] [address] Jan, [facility] [place] [facility] [address] [id number] [place] [address] Jan, [facility] [place] [facility] [address] [id number] [place] [address] Jan, [facility] [place] [facility] [address] [id number] [place] [address] Jan, [facility] [place] [facility] [address] [id number] [place] [address] Jan, [facility] [place] [facility] [address] [id number] [place] [address] Jan, [facility] [place] [facility] [address] [id number] [place] [address] Dec, [facility] [place] [facility] [address] [facility] [id number] [place] [address] Dec, [facility] [place] [facility] [address] [id number] [place] [address] Dec, [facility] [place] [facility] [address] [id number] [place] [address] Dec, [facility] [place] [facility] [address] [id number] [place] [address] Dec, [facility] [place] [facility] [address] [id number] [place] [address] Dec, [facility] [place] [facility] [address] [id number] [place] [address] Dec, [facility] [place] [facility] [address] [id number] [place] [address] Nov, [facility] [place] [facility] [address] [id number] [place] [address] Nov, [facility] [place] [facility] [address] [id number] [place] [address] Nov, [facility] [place] [facility] [address] [id number] [place] [address] Nov, [facility] [place] [facility] [address] [id number] [place] [address] Nov, [facility] [place] [facility] [address] [id number] [place] [address] Nov, [facility] [place] [facility] [address] [id number] [place] [address] Nov, [facility] [place] [facility] [address] [id number] [place] [address] Oct, [facility] [place] [facility] [address] [id number] [place] [address] Oct, [facility] [place] [facility] [address] [id number] [place] [address] Sep, [facility] [place] [facility] [address] [id number] [place] [address] Sep, [facility] [place] [facility] [address] [id number] [place] [address] Sep, [facility] [place] [facility] [address] [id number] [place] [address] Sep, [facility] [place] [facility] [address] [id number] [place] [address] Sep, [facility] [place] [facility] [address] [id number] [place] [address] Sep, [facility] [place] [facility] [address] [id number] [place] [address] Sep, [facility] [place] [facility] [address] [id number] [place] [address] Sep, [facility] [place] [facility] [address] [id number] [place] [address] Sep, [facility] [place] [facility] [address] [id number] [place] [address] Sep, [facility] [place] [facility] [address] [id number] [place] [address] Aug, [facility] [place] [facility] [address] [id number] [place] [address] Aug, [facility] [place] [facility] [address] [id number] [place] [address] Aug, [facility] [place] [facility] [address] [id number] [place] [address] Aug, [facility] [place] [facility] [address] [id number] [place] [address] Aug, [facility] [place] [facility] [address] [id number] [place] [address] Jul, [facility] [place] [facility] [address] [id number] [place] [address] Jul, [facility] [place] [facility] [address] [id number] [place] [address] Jul, [facility] [address] [facility] [id number] [place] [address] Jul, IMMUNIZATIONS No Known Immunizations SOCIAL HISTORY [...]
--- OUTSIDE RECORDS SUMMARY | 2020-03-16 11:46 | XMS REPORT ---
Author Author Swathi Benavides Organization [facility] Address [address] [place] [address] Care Team Providers Care Distributing Clerk Name Role Phone WIL Benavides Unavailable PROBLEMS Type Condition ICD9-CM Code TYP95-XO Code Onset Dates Condition S tatus SNOMED Code Problem Sensorineural hearing loss of right ear H90.41 Active 14076399 Problem Obstructive sleep apnea on CPAP G47.33 Active 35308655 Problem Periodic limb movement sleep disorder G47.61 Active 178404476 Problem Iron deficiency anemia due to chronic blood loss D 50.0 Active 27398729 Problem MACHUCA (nonalcoholic steatohepatitis) K75.81 Active 616687308 Problem Vitamin B12 deficiency E53.8 Active 783004147 Problem Chronic diarrhea K52.9 Active 236 649697 Problem Vitamin D deficiency E55.9 Active 01645208 Problem BMI 50.0-59.9, adult Z68.43 Active 124556596 Problem Fatty liver K76.0 Active 69426060 7 Problem Anxiety F41.9 Active 26946190 Problem Major depressive disorder, recurrent episode, moderate F33.1 Active 715922687 Problem Chronic tension-type headache, intractable G44.221 Active 614657106 Problem Right upper quadrant pain R10.11 Acti ve 01644202 Problem Frequent falls R29.6 Active 50870 2001 Problem Crohn's disease of both small and large intestin e with complication K50.819 Active 37127559 Problem Type 2 diabetes mellitus with other specified complication E11.69 Active 039326614847 Problem Hyperlipidemia, unspecified E78.5 Ac tive 72915750 Problem Mixed stress and urge urinary incontinence N39.46 Active 115568584 Problem Sinusitis chronic, frontal J32.1 Act katlyn 00686357 Problem Seasonal allergies J30.2 Active 4 14773779 Problem Other chronic pain G89.29 Active 8 5401692 Problem Hyperlipidemia E78.5 Active 74584 004 Problem Bilateral primary osteoarthritis of knee M17.0 Active 016270609 Problem Essential hypertension I10 Active 68590128 Problem Acquired hypothyroidism E03.9 Active 495534328 Problem History of hysterectomy for benign disease Z90.710 Active 332893331 Problem Morbid (severe) obesity due to excess calories E66 .01 Active 350175681 Problem Other cirrhosis of liver K74.69 Activ e 12162896 Problem Portal hypertension K76.6 Active 12943418 ALLERGIES No Information ENCOUNTERS Encounter Location Date Diagnosis [place] [address] [address] Nov, [place] [address] [address] Oct, Morbid (severe) obesity due to excess ca lories E66.01 and Type 2 diabetes mellitus with other specified complication E11.69 [place] [address] [address] Oct, Essential hypertension I10 ; BMI 50.0-59 .9, adult Z68.43 and Morbid (severe) obesity due to excess calories E66.01 [place] [address] [address] Oct, Encounter for Medicare annual wellness e [...] E78.5 and Other cirrhosis of liver K74.69 [place] [address] [address] Oct, [place] [address] [address] Sep, Major depressive disorder, recurrent epi sode, moderate F33.1 ; Vitamin B12 deficiency E53.8 ; BMI 50.0-59.9, adult Z68.43 and Essential hypertension I10 [facility] [address] [place] [id number] [place] [address] Sep, Breast pain, right N64.4 [facility] [address] [facility] [address] [place] [address] Sep, Breast pain, right N64.4 [facility] [address] [facility] [address] [place] [address] Sep, Breast pain, right N64.4 [facility] [address] [facility] [address] [place] [address] Sep, Breast pain, right N64.4 [place] [address] [address] Aug, [place] [address] [place] [id number] [place] [address] Aug, Major depressive disorder, recurrent epi sode, moderate F33.1 ; BMI 50.0-59.9, adult Z68.43 ; Type 2 diabetes mellitus without complication E11.9 ; Breast pain, right N64.4 and Encounter for screening mammogram for breast cancer Z12.31 [facility] [address] [place] [address] Jun, Pneumonia of right middle lo be due to infectious organism J18.1 and Cough R05 [facility] IN [facility] [address] [place] [address] 09 Jun, 2019 Acute nasopharyngitis J00 [place] [address] [place] [id number] [place] [address] May, Iron deficiency anemia due to chronic [...] disorder, recurrent episode, moderate F33.1 [place] [address] [address] May, Hyperlipidemia, unspecified E78.5 ; Othe r cirrhosis of liver K74.69 and Iron deficiency anemia due to chronic blood loss D50.0 [place] [address] [address] February, [facility] [address] [place] [address] February, Acute recurrent pansinusitis J01.41 [facility] IN [facility] [address] [place] [address] February, Acute maxillary sinusitis, r ecurrence not specified J01.00 [place] [address] [address] Jan, Bilateral primary osteoarthritis of knee M17.0 ; Morbid obesity E66.01 ; Viral syndrome B34.9 and Atrial dilatation, left I51.7 [place] [address] [address] Jan, [address] [address] Dec, Trigeminy R00.8 [place] [address] [address] Dec, Essential hypertension I10 ; Morbid obes ity E66.01 ; Low back pain M54.5 ; Other chronic pain G89.29 and Pain in right knee M25.561 [place] [address] [address] Nov, [place] [address] [address] Oct, Palpitations R00.[address] [address] Oct, Encounter for Medicare annual wellness e [...] large intestine with complication K50.819 [place] [address] [address] Oct, [address] [address] Oct, Crohn's disease of both small and large intestine with complication K50.819 [facility] [place] [id number] [place] [address] Jul, Sinusitis chronic, frontal J 32.1 ; Acute mucoid otitis media of both ears H65.113 ; Seasonal allergies J30.2 and BMI 50.0-59.9, adult Z68.[address] [address] 02 Jul, 2018 Essential hypertension I10 ; Type 2 diab etes mellitus with other specified complication E11.69 ; BMI 50.0-59.9, adult Z68.43 ; Mixed stress and urge urinary incontinence N39.46 and Mid back pain on right side M54.[address] [address] Jun, Iron deficiency anemia due to chronic bl ood loss D50.0 ; Hyperlipidemia E78.5 ; Type 2 diabetes mellitus with other specified complication E11.69 ; Vitamin B12 deficiency E53.8 and Vitamin D deficiency E55.9 [facility] [place] [id number] [place] [address] 14 Jun, 2018 Cough R05 and BMI 50.0-59.9, adult Z68.[address] [address] Jun, [place] [address] [address] May, Iron deficiency anemia due to chronic bl ood loss D50.0 ; Chronic diarrhea K52.9 ; Essential hypertension I10 ; Type 2 diabetes mellitus with other specified complication E11.69 ; Vitamin D deficiency E55.9 ; Colon stricture K56.699 ; Vitamin B12 deficiency E53.8 ; Hyperlipidemia E78.5 and BMI 50.0-59.9, adult Z68.43 [place] [address] [address] May, [address] [address] Apr, Nonhealing wound of heel S91.309A and Christopher dy mass index (BMI) of 50-59.9 in adult Z68.43 [place] [address] [address] Mar, [place] [address] [address] Mar, BMI 50.0-59.9, adult Z68.43 ; Flank pain R10.9 and Weight loss counseling, encounter for Z71.3 [place] [address] [address] February, [place] [address] [address] Jan, [place] [address] [address] Jan, [facility] [address] [facility] [id number] [address] [place] [address] Jan, Diarrhea due to staphylococc us A04.8 and Diarrhea, unspecified type R19.7 [place] [address] [place] [id number] [place] [address] Jan, Acquired hypothyroidism E03.9 ; Type 2 d iabetes mellitus with other specified complication E11.69 ; Hyperlipidemia E78.5 ; Essential hypertension I10 ; Major depressive disorder, recurrent episode, moderate F33.1 and Vitamin D deficiency E55.9 [place] [address] [address] Jan, Type 2 diabetes mellitus with other spec ified complication E11.69 ; Hyperlipidemia E78.5 ; Essential hypertension I10 ; Acquired hypothyroidism E03.9 ; Major depressive disorder, recurrent episode, moderate F33.1 ; Vitamin D deficiency E55.9 ; Sinus congestion R09.81 and BMI 50.0-59.9, adult Z68.43 [place] [address] [address] Dec, [address] [address] Sep, Encounter for immunization Z23 [address] [address] Sep, [address] [address] Sep, Vitamin B12 deficiency E53.[address] [address] Aug, [address] [address] Aug, BMI 60.0-69.9, adult Z68.44 and Acute no n-recurrent maxillary sinusitis J01.[address] [address] 14 Aug, [address] [address] Aug, Medicare annual wellness visit, initial Z00.00 ; Screening for breast cancer Z12.31 ; BMI 40.0-44.9, adult Z68.41 and Acquired hypothyroidism E03.[address] [address] Jul, Actinic keratosis L57.0 [place] [address] [place] [address] Jul, Actinic keratosis L57.0 [place] [address] [address] Jul, Type 2 diabetes mellitus with other spec ified complication E11.69 ; Actinic keratosis L57.0 and Hypothyroidism, unspecified E03.9 [place] [address] [address] Jul, [place] [address] [address] Jul, [place] [address] [address] Jul, Vitamin B12 deficiency E53.8 [place] [address] [address] Jun, Acquired hypothyroidism E03.9 and Chroni c tension-type headache, intractable G44.221 [place] [address] [address] Jun, Back muscle spasm M62.830 and BMI 50.0-5 9.9, adult Z68.43 [place] [address] [address] Jun, Vitamin B12 deficiency E53.8 [place] [address] [address] Jun, Crohn's disease of both small and large intestine with complication K50.819 [place] [address] [address] Jun, Crohn's disease of both small and large intestine with complication K50.819 [place] [address] [address] May, Hyperlipidemia E78.5 ; Anxiety F41.9 and Essential hypertension I10 [place] [address] [address] May, [place] [address] [address] May, Encounter for immunization Z23 and Vitam in B12 deficiency E53.8 [place] [address] [address] May, [place] [address] [address] Apr, [place] [address] [address] Apr, [place] [address] [address] Apr, Crohn's disease of both small and large intestine with complication K50.819 [place] [address] [address] Apr, Vitamin B12 deficiency E53.8 [place] [address] [address] Apr, Crohn's disease of both small and large intestine with complication K50.819 and Acute pain of right shoulder M25.511 [place] [address] [address] Mar, Type 2 diabetes mellitus without complic ation E11.9 ; Frequent falls R29.6 and Other chest pain R07.89 [place] [address] [address] Mar, [place] [address] [address] Mar, [place] [address] [address] Mar, Type 2 diabetes mellitus without complic ation E11.9 and Blurry vision, bilateral H53.8 [place] [address] [address] Mar, Vitamin B12 deficiency E53.8 [place] [address] [address] Mar, Crohn's disease of both small and large intestine with complication K50.819 [place] [address] [address] February, Vitamin B12 deficiency E53.8 [place] [address] [address] Jan, Crohn's disease of both small and large intestine with complication K50.819 [place] [address] [address] Jan, Crohn's disease of both small and large intestine with complication K50.819 [facility] [address] [facility] [id number] [address] [place] [address] Jan, Dark brown-colored urine R82 .99 and Acute suppurative otitis media of right ear without spontaneous rupture of tympanic membrane, recurrence not specified H66.001 [place] [address] [address] Jan, Encounter for immunization Z23 [place] [address] [address] Dec, Crohn's disease of both small and large intestine with complication K50.819 and Eustachian tube dysfunction, right H69.81 [place] [address] [address] Dec, [place] [address] [address] Dec, Contusion of right knee, initial encount er S80.01XA [place] [address] [address] Dec, [place] [address] [address] Dec, Acute pain of right knee M25.561 [place] [address] [address] Dec, Iron deficiency anemia due to chronic bl ood loss D50.0 [place] [address] [address] Dec, Hyperlipidemia E78.5 ; Type 2 diabetes m ellitus without complication E11.9 ; Vitamin B12 deficiency E53.8 ; Essential hypertension I10 ; Obstructive sleep apnea on CPAP G47.33 and Periodic limb movement sleep disorder G47.61 [place] [address] [address] 22 Nov, 2016 Type 2 diabetes mellitus without complic ation E11.9 ; Vitamin B12 deficiency E53.8 ; Hyperlipidemia E78.5 ; Essential hypertension I10 ; Obstructive sleep apnea on CPAP G47.33 ; Periodic limb movement sleep disorder G47.61 ; Anxiety F41.9 ; Acquired hypothyroidism E03.9 and Chronic tension-type headache, intractable G44.221 [place] [address] [address] Nov, Crohn's disease of both small and large intestine with complication K50.819 [place] [address] [address] Nov, Vitamin B12 deficiency E53.8 [place] [address] [address] Oct, [place] [address] [address] Oct, Vitamin B12 deficiency E53.8 [place] [address] [address] Sep, [place] [address] [address] Sep, Vitamin B12 deficiency E53.8 [place] [address] [address] Aug, [place] [address] [address] Aug, Vitamin B12 deficiency E53.8 [place] [address] [address] Aug, [place] [address] [address] Jul, Elevated ALT measurement R74.0 [place] [address] [address] Jul, Hematuria R31.9 ; Acute right-sided thor acic back pain M54.6 ; Major depressive disorder, recurrent episode, moderate F33.1 and Elevated ALT measurement R74.0 [place] [address] [address] Jul, [place] [address] [address] Jul, Elevated ALT measurement R74.0 [place] [address] [address] Jul, Iron deficiency anemia due to chronic bl ood loss D50.0 [place] [address] [address] Jul, Type 2 diabetes mellitus without complic ation E11.9 ; Acquired hypothyroidism E03.9 ; Iron deficiency anemia due to chronic blood loss D50.0 ; Hyperlipidemia E78.5 and Essential hypertension I10 [place] [address] [address] 26 Jun, 2016 [place] [address] [address] 20 Jun, 2016 Vitamin B12 deficiency E53.8 [place] [address] [address] 16 Jun, 2016 Type 2 diabetes mellitus without complic ation E11.9 ; Acquired hypothyroidism E03.9 ; Iron deficiency anemia due to chronic blood loss D50.0 ; Hyperlipidemia E78.5 ; Essential hypertension I10 ; Chronic tension-type headache, intractable G44.221 ; Pulsatile tinnitus, bilateral H93.13 ; Obstructive sleep apnea on CPAP G47.33 and Major depressive disorder, recurrent episode, moderate F33.1 [place] [address] [address] 16 May, 2016 Vitamin B12 deficiency E53.8 [place] [address] [address] 08 May, 2016 [place] [address] [address] Apr, Vitamin B12 deficiency E53.8 [place] [address] [address] 05 Apr, 2016 [place] [address] [address] 28 Mar, 2016 Chronic tension-type headache, intractab le G44.221 and Major depressive disorder, recurrent episode, moderate F33.1 [place] [address] [address] 14 Mar, 2016 Vitamin B12 deficiency E53.8 [place] [address] [address] February, [place] [address] [address] February, Vitamin B12 deficiency E53.8 [place] [address] [address] February, [place] [address] [address] Jan, Dysuria R30.0 [place] [address] [address] 22 Jan, 2016 Type 2 diabetes mellitus without complic ation E11.9 and Essential hypertension I10 [place] [address] [address] 15 Jan, 2016 Chronic diarrhea K52.9 [place] [address] [address] 13 Jan, 2016 [place] [address] [address] 12 Jan, 2016 Chronic diarrhea K52.9 [place] [address] [place] [id number] [place] [address] Jan, [place] [address] [address] Jan, Dysuria R30.0 [place] [address] [address] 07 Jan, 2016 Vitamin B12 deficiency E53.8 [place] [address] [address] 07 Jan, 2016 Dysuria R30.0 and Iron deficiency anemia due to chronic blood loss D50.0 [place] [address] [address] 05 Jan, 2016 Dysuria R30.0 [place] [address] [address] Jan, [place] [address] [address] 15 Dec, 2015 [place] [address] [address] Dec, Iron deficiency anemia due to chronic bl ood loss D50.0 [place] [address] [address] 10 Dec, 2015 Dysuria R30.0 ; Fatigue R53.83 ; Hyperli pidemia E78.5 and Diarrhea R19.7 [place] [address] [address] Dec, [place] [address] [address] Dec, [place] [address] [address] 10 Nov, 2015 Vitamin B12 deficiency E53.8 [place] [address] [address] Oct, Vitamin B12 deficiency E53.8 [place] [address] [address] Oct, [facility] [address] [facility] [id number] [address] [place] [address] Oct, Headache R51 [place] [address] [id number] [place] [address] Oct, Essential hypertension I10 ; Type 2 diab etes mellitus without complication E11.9 ; Vitamin B12 deficiency E53.8 ; Acquired hypothyroidism E03.9 ; Iron deficiency anemia due to chronic blood loss D50.0 and Hyperlipidemia E78.5 [place] [address] [address] Sep, Essential hypertension I10 ; Vitamin B12 deficiency E53.8 ; Iron deficiency anemia due to chronic blood loss D50.0 ; Type 2 diabetes mellitus without complication E11.9 ; Hyperlipidemia E78.5 and Acquired hypothyroidism E03.9 [place] [address] [address] Sep, [place] [address] [address] Sep, [place] [address] [address] Jul, [place] [address] [address] Jun, [place] [address] [address] Jun, [place] [address] [address] Jun, Hyperlipidemia 272.4 ; Iron deficiency a nemia 280.9 ; Hypothyroidism 244.9 ; Diabetes mellitus without mention of complication, type II or unspecified type, not stated as uncontrolled 250.00 and Hypertension 401.9 [place] [address] [address] Jun, [place] [address] [address] Jun, [place] [address] [address] May, Hyperlipidemia 272.4 [facility] [address] [address] May, [facility] [address] [address] May, [facility] [address] [address] Apr, Diabetes mellitus without mention of com plication, type II or unspecified type, not stated as uncontrolled 250.00 ; Hypothyroidism 244.9 ; Hyperlipidemia 272.4 ; Pain in joint, lower leg 719.46 and RUQ pain 789.01 [facility] [address] [address] Mar, Sinusitis 473.9 [facility] [address] [address] Mar, [facility] [address] [address] Mar, [facility] [address] [address] Mar, Hematochezia 578.1 [facility] [address] [address] February, Sinusitis 473.9 [facility] [address] [address] February, [facility] [address] [address] Jan, [facility] [address] [address] Jan, [facility] [address] [address] Dec, [facility] [address] [address] Dec, [facility] [address] [address] Dec, [facility] [place] [facility] [address] [facility] [id number] [place] [address] Dec, [facility] [place] [facility] [address] [facility] [id number] [place] [address] Dec, [facility] [place] [facility] [address] [id number] [place] [address] Dec, [facility] [place] [facility] [address] [id number] [place] [address] Dec, [facility] [place] [facility] [address] [facility] [id number] [place] [address] Dec, [facility] [place] [facility] [address] [id number] [place] [address] Dec, [facility] [place] [facility] [address] [id number] [place] [address] Dec, [facility] [place] [facility] [address] [id number] [place] [address] Dec, [facility] [place] [facility] [address] [id number] [place] [address] Nov, [facility] [place] [facility] [address] [id number] [place] [address] Nov, [facility] [place] [facility] [address] [id number] [place] [address] Nov, [facility] [place] [facility] [address] [id number] [place] [address] Nov, [facility] [place] [facility] [address] [id number] [place] [address] Oct, [facility] [place] [facility] [address] [id number] [place] [address] Oct, [facility] [place] [facility] [address] [id number] [place] [address] Oct, [facility] [place] [facility] [address] [id number] [place] [address] Oct, [facility] [place] [facility] [address] [id number] [place] [address] Oct, [facility] [place] [facility] [address] [id number] [place] [address] Oct, [facility] [place] [facility] [address] [id number] [place] [address] Sep, [facility] [place] [facility] [address] [id number] [place] [address] Sep, [facility] [place] [facility] [address] [id number] [place] [address] Sep, [facility] [place] [facility] [address] [id number] [place] [address] Sep, [facility] [place] [facility] [address] [id number] [place] [address] Sep, [facility] [place] [facility] [address] [id number] [place] [address] Sep, [facility] [address] [id number] [place] [address] Sep, [facility] [address] [id number] [place] [address] Aug, [facility] [address] [id number] [place] [address] Aug, [facility] [address] [id number] [place] [address] Aug, [facility] [address] [id number] [place] [address] Aug, [facility] [address] [id number] [place] [address] Aug, [facility] [id number] [place] [address] Aug, [facility] [address] [id number] [place] [address] Aug, [facility] [address] [id number] [place] [address] 18 Aug, 2014 [facility] [address] [id number] [place] [address] Aug, [facility] [address] [id number] [place] [address] Aug, [facility] [address] [id number] [place] [address] Aug, [facility] [address] [id number] [place] [address] Aug, [facility] [address] [id number] [place] [address] Aug, [facility] [address] [id number] [place] [address] Aug, [facility] [address] [id number] [place] [address] Jul, [facility] [address] [id number] [place] [address] Jul, [facility] [address] [id number] [place] [address] Jul, [facility] [address] [id number] [place] [address] Jul, [facility] [address] [id number] [place] [address] 24 Jun, 2013 [facility] [address] [id number] [place] [address] 24 Jun, 2013 [facility] [address] [id number] [place] [address] 23 Jun, 2013 [facility] [address] [id number] [place] [address] 23 Jun, 2013 [facility] [address] [id number] [place] [address] 19 Jun, 2013 [facility] [address] [id number] [place] [address] 19 Jun, 2013 [facility] [address] [id number] [facility] [address] 11 Jun, 2013 [facility] [address] [id number] [place] [place] [address] Jun, [facility] [address] [facility] [id number] [facility] [place] [address] Jun, [facility] [address] [facility] [id number] [facility] [place] [address] Jun, 2013 [facility] [address] [facility] [id number] [facility] [place] [address] Jun, [facility] [address] [id number] [facility] [place] [address] Jun, [facility] [address] [facility] [id number] [place] [address] Jun, [facility] [address] [id number] [place] [address] Jun, [facility] [address] [id number] [place] [address] May, [facility] [address] [id number] [place] [address] May, [facility] [address] [id number] [place] [address] May, [facility] [address] [id number] [place] [address] May, [facility] [address] [id number] [place] [address] May, [facility] [address] [id number] [place] [address] May, [facility] [address] [id number] [place] [address] Apr, [facility] [address] [facility] [id number] [place] [address] Apr, [facility] [address] [id number] [place] [address] Apr, [facility] [address] [id number] [place] [address] Apr, [facility] [address] [facility] [id number] [place] [address] Apr, [facility] [address] [facility] [id number] [place] [address] Apr, [facility] [address] [id number] [place] [address] Apr, [facility] [address] [facility] [id number] [place] [address] Apr, [facility] [address] [facility] [id number] [place] [address] Apr, [facility] [address] [id number] [place] [address] Apr, [facility] [address] [id number] [place] [address] Apr, [facility] [address] [id number] [place] [address] Mar, [facility] [address] [facility] [id number] [place] [address] Mar, [facility] [address] [id number] [place] [address] Mar, [facility] [address] [id number] [place] [address] Mar, [facility] [address] [id number] [place] [address] February, [facility] [address] [facility] [id number] [place] [address] February, [facility] [address] [id number] [place] [address] Jan, [facility] [address] [id number] [place] [address] Jan, [facility] [address] [place] [id number] Jan, [facility] [address] [id number] [place] [address] Jan, [facility] [address] [id number] [place] [address] Jan, [facility] [address] [facility] [id number] [place] [address] Jan, [facility] [address] [id number] [place] [address] Jan, [facility] [address] [facility] [id number] [place] [address] Jan, [facility] [address] [id number] [place] [address] Jan, [facility] [address] [id number] [place] [address] Jan, [facility] [address] [id number] [place] [address] Jan, [facility] [address] [id number] [place] [address] Jan, [facility] [address] [id number] [place] [address] Jan, [facility] [address] [id number] [place] [address] Jan, [facility] [address] [id number] [place] [address] Jan, [facility] [address] [id number] [place] [address] Jan, [facility] [address] [id number] [place] [address] Jan, [facility] [address] [id number] [place] [address] Dec, [facility] [address] [id number] [place] [address] 18 Dec, 2013 [facility] [address] [id number] [place] [address] Dec, [facility] [address] [id number] [place] [address] Dec, [facility] [address] [id number] [place] [address] Dec, [facility] [address] [id number] [place] [address] Dec, [facility] [address] [id number] [place] [address] Dec, [facility] [address] [id number] [place] [address] Nov, [facility] [address] [id number] [place] [address] Nov, [facility] [address] [id number] [place] [address] Nov, [facility] [address] [id number] [place] [address] Nov, [facility] [address] [id number] [place] [address] Nov, [facility] [address] [id number] [place] [address] Nov, [facility] [address] [id number] [place] [address] Nov, [facility] [address] [id number] [place] [address] Oct, [facility] [address] [id number] [place] [address] Oct, [facility] [address] [id number] [place] [address] Sep, [facility] [address] [id number] [place] [address] Sep, [facility] [address] [id number] [place] [address] Sep, [facility] [id number] [place] [address] Sep, [facility] [id number] [place] [address] Sep, [facility] [id number] [place] [address] Sep, [facility] [id number] [place] [address] Sep, [facility] [id number] [place] [address] Sep, [facility] [id number] [place] [address] Sep, [facility] [id number] [place] [address] Sep, [facility] [id number] [place] [address] Aug, [facility] [id number] [place] [address] Aug, [facility] [id number] [place] [address] Aug, [facility] [id number] [place] [address] Aug, [facility] [id number] [place] [address] Aug, [facility] [id number] [place] [address] Jul, [facility] [id number] [place] [address] Jul, [facility] [id number] [place] [address] Jul, [facility] [id number] [place] [address] Jul, IMMUNIZATIONS No Known Immunizations SOCIAL HISTORY [...]
--- OUTSIDE RECORDS SUMMARY | 2020-03-16 11:46 | XMS REPORT ---
Author Author Swathi Benavides Organization [facility] Address [address] [place] [address] Care Team Providers Care Heater Room Helper Name Role Phone WIL Benavides Unavailable PROBLEMS Type Condition ICD9-CM Code KQE14-JA Code Onset Dates Condition S tatus SNOMED Code Problem Sensorineural hearing loss of right ear H90.41 Active 63805973 Problem Obstructive sleep apnea on CPAP G47.33 Active 82610409 Problem Periodic limb movement sleep disorder G47.61 Active 429558163 Problem Iron deficiency anemia due to chronic blood loss D 50.0 Active 65852984 Problem MACHUCA (nonalcoholic steatohepatitis) K75.81 Active 284064233 Problem Vitamin B12 deficiency E53.8 Active 716806887 Problem Chronic diarrhea K52.9 Active 236 264635 Problem Vitamin D deficiency E55.9 Active 44772008 Problem BMI 50.0-59.9, adult Z68.43 Active 953828031 Problem Fatty liver K76.0 Active 36239302 7 Problem Anxiety F41.9 Active 21155551 Problem Major depressive disorder, recurrent episode, moderate F33.1 Active 544900885 Problem Chronic tension-type headache, intractable G44.221 Active 360252520 Problem Right upper quadrant pain R10.11 Acti ve 87680697 Problem Frequent falls R29.6 Active 83922 2001 Problem Crohn's disease of both small and large intestin e with complication K50.819 Active 67615822 Problem Type 2 diabetes mellitus with other specified complication E11.69 Active 068340294165 Problem Hyperlipidemia, unspecified E78.5 Ac tive 36792277 Problem Mixed stress and urge urinary incontinence N39.46 Active 036334789 Problem Sinusitis chronic, frontal J32.1 Act katlyn 71297192 Problem Seasonal allergies J30.2 Active 4 26312684 Problem Other chronic pain G89.29 Active 8 4062673 Problem Hyperlipidemia E78.5 Active 30483 004 Problem Bilateral primary osteoarthritis of knee M17.0 Active 232552056 Problem Essential hypertension I10 Active 07902872 Problem Acquired hypothyroidism E03.9 Active 840111574 Problem History of hysterectomy for benign disease Z90.710 Active 622281360 Problem Morbid (severe) obesity due to excess calories E66 .01 Active 372795885 Problem Other cirrhosis of liver K74.69 Activ e 09829962 Problem Portal hypertension K76.6 Active 72938431 ALLERGIES No Information ENCOUNTERS Encounter Location Date Diagnosis [place] [address] [address] Jan, [place] [address] [address] Nov, MACHUCA (nonalcoholic steatohepatitis) K75. 81 ; BMI 50.0-59.9, adult Z68.43 and Type 2 diabetes mellitus with other specified complication E11.69 [place] [address] [address] Oct, Morbid (severe) obesity due to excess ca lories E66.01 and Type 2 diabetes mellitus with other specified complication E11.69 [place] [address] [address] Oct, Essential hypertension I10 ; BMI 50.0-59 .9, adult Z68.43 and Morbid (severe) obesity due to excess calories E66.01 [place] [address] [address] Oct, Encounter for Medicare annual wellness e [...] E78.5 and Other cirrhosis of liver K74.69 [place] [address] [address] Oct, [facility] [address] [id number] [place] [address] Sep, Major depressive disorder, recurrent epi sode, moderate F33.1 ; Vitamin B12 deficiency E53.8 ; BMI 50.0-59.9, adult Z68.43 and Essential hypertension I10 [place] [address] [place] [id number] [place] [address] Sep, Breast pain, right N64.[address] [place] [address] Sep, Breast pain, right N64.[address] [place] [address] Sep, Breast pain, right N64.[address] [place] [address] Sep, Breast pain, right N64.4 [place] [address] [place] [address] [id number] [place] [address] Aug, [place] [address] [place] [id number] [place] [address] Aug, Major depressive disorder, recurrent epi sode, moderate F33.1 ; BMI 50.0-59.9, adult Z68.43 ; Type 2 diabetes mellitus without complication E11.9 ; Breast pain, right N64.4 and Encounter for screening mammogram for breast cancer Z12.31 [facility] [address] [place] [address] Jun, Pneumonia of right middle lo be due to infectious organism J18.1 and Cough R05 [facility] [address] [place] [address] Jun, Acute nasopharyngitis J00 [place] [address] [facility] [place] [address] May, Iron deficiency anemia due to chronic [...] Major depressive disorder, recurrent episode, moderate F33.1 [place] [address] [address] May, Hyperlipidemia, unspecified E78.5 ; Othe r cirrhosis of liver K74.69 and Iron deficiency anemia due to chronic blood loss D50.0 [place] [address] [address] February, [facility] [address] [place] [address] February, Acute recurrent pansinusitis J01.41 [facility] [address] [place] [address] February, Acute maxillary sinusitis, r ecurrence not specified J01.00 [place] [address] [address] Jan, Bilateral primary osteoarthritis of knee M17.0 ; Morbid obesity E66.01 ; Viral syndrome B34.9 and Atrial dilatation, left I51.7 [place] [address] [address] Jan, [place] [address] [address] Dec, Trigeminy R00.8 [place] [address] [address] Dec, Essential hypertension I10 ; Morbid obes ity E66.01 ; Low back pain M54.5 ; Other chronic pain G89.29 and Pain in right knee M25.561 [place] [address] [address] Nov, [place] [address] [address] Oct, Palpitations R00.[address] [address] Oct, Encounter for Medicare annual wellness e [...] small and large intestine with complication K50.[address] [address] Oct, [address] [address] Oct, Crohn's disease of both small and large intestine with complication K50.819 [facility] [address] [place] [address] [id number] [address] [place] [address] Jul, Sinusitis chronic, frontal J 32.1 ; Acute mucoid otitis media of both ears H65.113 ; Seasonal allergies J30.2 and BMI 50.0-59.9, adult Z68.[address] [address] Jul, Essential hypertension I10 ; Type 2 diab etes mellitus with other specified complication E11.69 ; BMI 50.0-59.9, adult Z68.43 ; Mixed stress and urge urinary incontinence N39.46 and Mid back pain on right side M54.[address] [address] Jun, Iron deficiency anemia due to chronic bl ood loss D50.0 ; Hyperlipidemia E78.5 ; Type 2 diabetes mellitus with other specified complication E11.69 ; Vitamin B12 deficiency E53.8 and Vitamin D deficiency E55.9 [facility] [address] [facility] [id number] [address] [place] [address] Jun, Cough R05 and BMI 50.0-59.9, adult Z68.43 [place] [address] [address] Jun, [place] [address] [address] May, Iron deficiency anemia due to chronic bl ood loss D50.0 ; Chronic diarrhea K52.9 ; Essential hypertension I10 ; Type 2 diabetes mellitus with other specified complication E11.69 ; Vitamin D deficiency E55.9 ; Colon stricture K56.699 ; Vitamin B12 deficiency E53.8 ; Hyperlipidemia E78.5 and BMI 50.0-59.9, adult Z68.43 [place] [address] [address] May, [place] [address] [address] Apr, Nonhealing wound of heel S91.309A and Christopher dy mass index (BMI) of 50-59.9 in adult Z68.43 [place] [address] [address] Mar, [place] [address] [address] Mar, BMI 50.0-59.9, adult Z68.43 ; Flank pain R10.9 and Weight loss counseling, encounter for Z71.[address] [address] February, [place] [address] [address] Jan, [place] [address] [address] Jan, [facility] [address] [facility] [id number] [address] [place] [address] Jan, Diarrhea due to staphylococc us A04.8 and Diarrhea, unspecified type R19.7 [place] [address] [address] 10 Jan, 2018 Acquired hypothyroidism E03.9 ; Type 2 d iabetes mellitus with other specified complication E11.69 ; Hyperlipidemia E78.5 ; Essential hypertension I10 ; Major depressive disorder, recurrent episode, moderate F33.1 and Vitamin D deficiency E55.9 [place] [address] [address] 03 Jan, 2018 Type 2 diabetes mellitus with other spec ified complication E11.69 ; Hyperlipidemia E78.5 ; Essential hypertension I10 ; Acquired hypothyroidism E03.9 ; Major depressive disorder, recurrent episode, moderate F33.1 ; Vitamin D deficiency E55.9 ; Sinus congestion R09.81 and BMI 50.0-59.9, adult Z68.43 [place] [address] [address] Dec, [place] [address] [address] Sep, Encounter for immunization Z23 [address] [address] Sep, [place] [address] [address] Sep, Vitamin B12 deficiency E53.8 [place] [address] [address] Aug, [place] [address] [address] Aug, BMI 60.0-69.9, adult Z68.44 and Acute no n-recurrent maxillary sinusitis J01.00 [place] [address] [address] 14 Aug, 2017 [place] [address] [address] 02 Aug, 2017 Medicare annual wellness visit, initial Z00.00 ; Screening for breast cancer Z12.31 ; BMI 40.0-44.9, adult Z68.41 and Acquired hypothyroidism E03.9 [place] [address] [address] Jul, Actinic keratosis L57.0 [place] [address] [address] Jul, Actinic keratosis L57.0 [place] [address] [address] Jul, Type 2 diabetes mellitus with other spec ified complication E11.69 ; Actinic keratosis L57.0 and Hypothyroidism, unspecified E03.9 [place] [address] [address] Jul, [place] [address] [address] Jul, [place] [address] [address] Jul, Vitamin B12 deficiency E53.8 [place] [address] [address] Jun, Acquired hypothyroidism E03.9 and Chroni c tension-type headache, intractable G44.221 [place] [address] [address] Jun, Back muscle spasm M62.830 and BMI 50.0-5 9.9, adult Z68.43 [place] [address] [address] Jun, Vitamin B12 deficiency E53.8 [place] [address] [address] Jun, Crohn's disease of both small and large intestine with complication K50.819 [place] [address] [address] Jun, Crohn's disease of both small and large intestine with complication K50.819 [place] [address] [address] May, Hyperlipidemia E78.5 ; Anxiety F41.9 and Essential hypertension I10 [place] [address] [address] May, [place] [address] [address] May, Encounter for immunization Z23 and Vitam in B12 deficiency E53.8 [place] [address] [address] May, [place] [address] [address] Apr, [place] [address] [address] Apr, [place] [address] [address] Apr, Crohn's disease of both small and large intestine with complication K50.819 [place] [address] [address] Apr, Vitamin B12 deficiency E53.8 [place] [address] [address] Apr, Crohn's disease of both small and large intestine with complication K50.819 and Acute pain of right shoulder M25.511 [place] [address] [address] Mar, Type 2 diabetes mellitus without complic ation E11.9 ; Frequent falls R29.6 and Other chest pain R07.89 [place] [address] [address] Mar, [place] [address] [address] Mar, [place] [address] [address] Mar, Type 2 diabetes mellitus without complic ation E11.9 and Blurry vision, bilateral H53.8 [place] [address] [address] Mar, Vitamin B12 deficiency E53.8 [place] [address] [address] Mar, Crohn's disease of both small and large intestine with complication K50.819 [place] [address] [address] February, Vitamin B12 deficiency E53.8 [place] [address] [address] Jan, Crohn's disease of both small and large intestine with complication K50.819 [place] [address] [address] Jan, Crohn's disease of both small and large intestine with complication K50.819 [facility] [address] [facility] [id number] [address] [place] [address] Jan, Dark brown-colored urine R82 .99 and Acute suppurative otitis media of right ear without spontaneous rupture of tympanic membrane, recurrence not specified H66.001 [place] [address] [address] Jan, Encounter for immunization Z23 [place] [address] [address] Dec, Crohn's disease of both small and large intestine with complication K50.819 and Eustachian tube dysfunction, right H69.81 [place] [address] [address] Dec, [place] [address] [address] Dec, Contusion of right knee, initial encount er S80.01XA [place] [address] [address] Dec, [place] [address] [address] 13 Dec, 2016 Acute pain of right knee M25.561 [place] [address] [address] Dec, Iron deficiency anemia due to chronic bl ood loss D50.0 [place] [address] [address] Dec, Hyperlipidemia E78.5 ; Type 2 diabetes m ellitus without complication E11.9 ; Vitamin B12 deficiency E53.8 ; Essential hypertension I10 ; Obstructive sleep apnea on CPAP G47.33 and Periodic limb movement sleep disorder G47.61 [place] [address] [address] 22 Nov, 2016 Type 2 diabetes mellitus without complic ation E11.9 ; Vitamin B12 deficiency E53.8 ; Hyperlipidemia E78.5 ; Essential hypertension I10 ; Obstructive sleep apnea on CPAP G47.33 ; Periodic limb movement sleep disorder G47.61 ; Anxiety F41.9 ; Acquired hypothyroidism E03.9 and Chronic tension-type headache, intractable G44.221 [place] [address] [address] Nov, Crohn's disease of both small and large intestine with complication K50.819 [place] [address] [address] Nov, Vitamin B12 deficiency E53.8 [place] [address] [address] Oct, [place] [address] [address] Oct, Vitamin B12 deficiency E53.8 [place] [address] [address] Sep, [place] [address] [address] Sep, Vitamin B12 deficiency E53.8 [place] [address] [address] Aug, [place] [address] [address] Aug, Vitamin B12 deficiency E53.8 [place] [address] [address] Aug, [place] [address] [address] 24 Jul, 2016 Elevated ALT measurement R74.0 [place] [address] [address] Jul, Hematuria R31.9 ; Acute right-sided thor acic back pain M54.6 ; Major depressive disorder, recurrent episode, moderate F33.1 and Elevated ALT measurement R74.0 [place] [address] [address] Jul, [place] [address] [address] Jul, Elevated ALT measurement R74.0 [place] [address] [address] 14 Jul, 2016 Iron deficiency anemia due to chronic bl ood loss D50.0 [place] [address] [address] 14 Jul, 2016 Type 2 diabetes mellitus without complic ation E11.9 ; Acquired hypothyroidism E03.9 ; Iron deficiency anemia due to chronic blood loss D50.0 ; Hyperlipidemia E78.5 and Essential hypertension I10 [place] [address] [place] [address] [id number] [place] [address] Jun, [place] [address] [address] 20 Jun, 2016 Vitamin B12 deficiency E53.8 [place] [address] [place] [id number] [place] [address] 16 Jun, 2016 Type 2 diabetes mellitus without complic ation E11.9 ; Acquired hypothyroidism E03.9 ; Iron deficiency anemia due to chronic blood loss D50.0 ; Hyperlipidemia E78.5 ; Essential hypertension I10 ; Chronic tension-type headache, intractable G44.221 ; Pulsatile tinnitus, bilateral H93.13 ; Obstructive sleep apnea on CPAP G47.33 and Major depressive disorder, recurrent episode, moderate F33.1 [place] [address] [address] 16 May, 2016 Vitamin B12 deficiency E53.8 [place] [address] [address] 08 May, 2016 [place] [address] [address] Apr, Vitamin B12 deficiency E53.8 [place] [address] [address] 05 Apr, 2016 [place] [address] [address] Mar, Chronic tension-type headache, intractab le G44.221 and Major depressive disorder, recurrent episode, moderate F33.1 [place] [address] [address] 14 Mar, 2016 Vitamin B12 deficiency E53.8 [place] [address] [address] February, [place] [address] [address] February, Vitamin B12 deficiency E53.8 [place] [address] [address] February, [place] [address] [address] Jan, Dysuria R30.0 [place] [address] [address] 22 Jan, 2016 Type 2 diabetes mellitus without complic ation E11.9 and Essential hypertension I10 [place] [address] [address] 15 Jan, 2016 Chronic diarrhea K52.9 [facility] [address] [address] 13 Jan, 2016 [facility] [address] [address] 12 Jan, 2016 Chronic diarrhea K52.9 [place] [address] [address] Jan, [place] [address] [address] Jan, Dysuria R30.0 [place] [address] [address] Jan, Vitamin B12 deficiency E53.8 [place] [address] [address] 07 Jan, 2016 Dysuria R30.0 and Iron deficiency anemia due to chronic blood loss D50.0 [place] [address] [address] 05 Jan, 2016 Dysuria R30.0 [place] [address] [address] 04 Jan, 2016 [place] [address] [address] 15 Dec, 2015 [place] [address] [address] Dec, Iron deficiency anemia due to chronic bl ood loss D50.0 [place] [address] [address] 10 Dec, 2015 Dysuria R30.0 ; Fatigue R53.83 ; Hyperli pidemia E78.5 and Diarrhea R19.7 [place] [address] [address] 09 Dec, 2015 [place] [address] [address] 02 Dec, 2015 [place] [address] [address] 10 Nov, 2015 Vitamin B12 deficiency E53.8 [facility] [address] [address] Oct, Vitamin B12 deficiency E53.8 [facility] [address] [address] Oct, [facility] [address] [facility] [id number] [address] [place] [address] 09 Oct, 2015 Headache R51 [facility] [address] [address] 07 Oct, 2015 Essential hypertension I10 ; Type 2 diab etes mellitus without complication E11.9 ; Vitamin B12 deficiency E53.8 ; Acquired hypothyroidism E03.9 ; Iron deficiency anemia due to chronic blood loss D50.0 and Hyperlipidemia E78.5 [place] [address] [address] Sep, Essential hypertension I10 ; Vitamin B12 deficiency E53.8 ; Iron deficiency anemia due to chronic blood loss D50.0 ; Type 2 diabetes mellitus without complication E11.9 ; Hyperlipidemia E78.5 and Acquired hypothyroidism E03.9 [place] [address] [address] Sep, [place] [address] [address] Sep, [place] [address] [address] Jul, [place] [address] [address] Jun, [place] [address] [address] Jun, [place] [address] [address] 15 Jun, 2015 Hyperlipidemia 272.4 ; Iron deficiency a nemia 280.9 ; Hypothyroidism 244.9 ; Diabetes mellitus without mention of complication, type II or unspecified type, not stated as uncontrolled 250.00 and Hypertension 401.9 [place] [address] [place] [id number] [place] [address] Jun, [facility] [address] [address] Jun, [facility] [address] [address] May, Hyperlipidemia 272.4 [facility] [address] [address] May, [facility] [address] [address] May, [facility] [address] [address] Apr, Diabetes mellitus without mention of com plication, type II or unspecified type, not stated as uncontrolled 250.00 ; Hypothyroidism 244.9 ; Hyperlipidemia 272.4 ; Pain in joint, lower leg 719.46 and RUQ pain 789.01 [facility] [address] [address] [id number] [place] [address] Mar, Sinusitis 473.9 [facility] [address] [address] Mar, [facility] [address] [address] Mar, [facility] [address] [address] Mar, Hematochezia 578.1 [facility] [address] [address] [id number] [place] [address] February, Sinusitis 473.9 [facility] [address] [address] February, [facility] [address] [address] 14 Jan, 2015 [facility] [address] [address] Jan, [facility] [address] [address] [id number] [facility] [place] [place] [address] 24 Dec, 2014 [facility] [address] [facility] [id number] [place] [address] Dec, [facility] [address] [facility] [id number] [place] [address] Dec, [facility] [address] [id number] [place] [address] Dec, [facility] [address] [facility] [id number] [place] [address] Dec, [facility] [address] [facility] [id number] [place] [address] Dec, [facility] [address] [id number] [place] [address] Dec, [facility] [address] [id number] [place] [address] Dec, [facility] [address] [id number] [place] [address] Dec, [facility] [address] [id number] [place] [address] Dec, [facility] [address] [id number] [place] [address] Dec, [facility] [address] [id number] [place] [address] Nov, [facility] [address] [id number] [place] [address] Nov, [facility] [address] [facility] [id number] [place] [address] Nov, [facility] [address] [id number] [place] [address] Nov, [facility] [address] [id number] [place] [address] Oct, [facility] [address] [id number] [place] [address] Oct, [facility] [address] [id number] [place] [address] Oct, [facility] [address] [id number] [place] [address] Oct, [facility] [address] [id number] [place] [address] Oct, [facility] [address] [id number] [place] [address] Oct, [facility] [address] [id number] [place] [address] Sep, [facility] [address] [id number] [place] [address] Sep, [facility] [address] [id number] [place] [address] Sep, [facility] [address] [id number] [place] [address] Sep, [facility] [address] [id number] [place] [address] Sep, [facility] [address] [id number] [place] [address] Sep, [facility] [address] [id number] [place] [address] Sep, [facility] [address] [id number] [place] [address] Aug, [facility] [address] [id number] [place] [address] Aug, [facility] [address] [address] [id number] [place] [address] Aug, [facility] [place] [facility] [address] [id number] [place] [address] Aug, [facility] [place] [facility] [address] [id number] [place] [address] Aug, [facility] [place] [facility] [address] [id number] [place] [address] Aug, [facility] [place] [facility] [address] [id number] [place] [address] Aug, [facility] [place] [facility] [address] [id number] [place] [address] Aug, [facility] [place] [facility] [address] [id number] [place] [address] Aug, [facility] [place] [facility] [address] [id number] [place] [address] Aug, [facility] [place] [facility] [address] [id number] [place] [address] Aug, [facility] [place] [facility] [address] [id number] [place] [address] Aug, [facility] [place] [facility] [address] [id number] [place] [address] Aug, [facility] [place] [facility] [address] [id number] [place] [address] Aug, [facility] [place] [facility] [address] [id number] [place] [address] Jul, [facility] [place] [facility] [address] [id number] [place] [address] Jul, [facility] [place] [facility] [address] [id number] [place] [address] Jul, [facility] [place] [facility] [address] [id number] [place] [address] Jul, [facility] [place] [facility] [address] [id number] [place] [address] 24 Jun, 2014 [facility] [place] [facility] [address] [id number] [place] [address] 24 Jun, 2014 [facility] [place] [facility] [address] [id number] [place] [address] Jun, [facility] [place] [facility] [address] [id number] [place] [address] Jun, 2013 [facility] [place] [facility] [address] [id number] [place] [address] 19 Jun, 2013 [facility] [place] [facility] [address] [facility] [id number] [place] [address] 19 Jun, 2013 [facility] [place] [facility] [address] [facility] [id number] [place] [address] 11 Jun, 2013 [facility] [place] [facility] [address] [facility] [id number] [place] [address] Jun, 2013 [facility] [place] [facility] [address] [facility] [id number] [place] [address] Jun, 2013 [facility] [place] [facility] [address] [facility] [id number] [place] [address] Jun, [facility] [place] [facility] [address] [id number] [place] [address] Jun, [facility] [place] [facility] [address] [id number] [place] [address] Jun, [facility] [place] [facility] [address] [id number] [place] [address] Jun, [facility] [place] [facility] [address] [facility] [id number] [place] [address] Jun, [facility] [place] [facility] [address] [id number] [place] [address] 14 May, 2014 [facility] [place] [facility] [address] [id number] [place] [address] May, [facility] [place] [facility] [address] [facility] [id number] [place] [address] May, [facility] [place] [facility] [address] [facility] [id number] [place] [address] May, [facility] [place] [facility] [address] [id number] [place] [address] May, [facility] [place] [facility] [address] [id number] [place] [address] May, [facility] [place] [facility] [address] [id number] [place] [address] Apr, [facility] [place] [facility] [address] [id number] [facility] [place] [address] Apr, [facility] [place] [facility] [address] [id number] [place] [address] Apr, [facility] [place] [facility] [address] [facility] [id number] [facility] [place] [address] Apr, [facility] [place] [facility] [address] [id number] [place] [address] Apr, [facility] [place] [facility] [address] [facility] [id number] [place] [address] Apr, [facility] [place] [facility] [address] [id number] [facility] [place] [address] Apr, [facility] [place] [facility] [address] [facility] [id number] [place] [address] Apr, [facility] [place] [facility] [address] [id number] [place] [address] Apr, [facility] [place] [facility] [address] [facility] [id number] [facility] [place] [address] Apr, [facility] [place] [facility] [address] [id number] [place] [address] Apr, [facility] [place] [facility] [address] [id number] [place] [address] Mar, [facility] [place] [facility] [address] [id number] [place] [address] Mar, [facility] [place] [facility] [address] [facility] [id number] [place] [address] Mar, [facility] [place] [facility] [address] [facility] [id number] [place] [address] Mar, [facility] [place] [facility] [address] [facility] [id number] [place] [address] February, [facility] [place] [facility] [address] [id number] [place] [address] February, [facility] [place] [facility] [address] [id number] [facility] [place] [address] Jan, [facility] [address] [id number] [place] [address] Jan, [address] [facility] [address] [place] [id number] [facility] [id number] Jan, [facility] [address] [id number] [facility] [place] [address] Jan, [facility] [place] [facility] [address] [id number] [facility] [place] [address] Jan, [facility] [place] [facility] [address] [id number] [facility] [place] [address] Jan, [facility] [place] [facility] [address] [id number] [place] [address] Jan, [facility] [address] [id number] [facility] [place] [address] Jan, [facility] [place] [facility] [address] [id number] [facility] [place] [address] Jan, [facility] [place] [facility] [address] [id number] [place] [address] Jan, [facility] [place] [facility] [address] [id number] [place] [address] Jan, [facility] [place] [facility] [address] [id number] [place] [address] Jan, [facility] [place] [facility] [address] [id number] [place] [address] Jan, [facility] [place] [facility] [address] [id number] [place] [address] Jan, [facility] [place] [facility] [address] [id number] [place] [address] Jan, [facility] [place] [facility] [address] [id number] [place] [address] Jan, [facility] [place] [facility] [address] [id number] [place] [address] Jan, [facility] [place] [facility] [address] [id number] [place] [address] Dec, [facility] [place] [facility] [address] [facility] [id number] [place] [address] Dec, [facility] [place] [facility] [address] [id number] [place] [address] Dec, [facility] [place] [facility] [address] [id number] [place] [address] Dec, [facility] [place] [facility] [address] [id number] [place] [address] Dec, [facility] [place] [facility] [address] [id number] [place] [address] Dec, [facility] [place] [facility] [address] [id number] [place] [address] Dec, [facility] [place] [facility] [address] [id number] [place] [address] Nov, [facility] [place] [facility] [address] [id number] [place] [address] Nov, [facility] [place] [facility] [address] [id number] [place] [address] Nov, [facility] [place] [facility] [address] [id number] [place] [address] Nov, [facility] [place] [facility] [address] [id number] [place] [address] Nov, [facility] [place] [facility] [address] [id number] [place] [address] Nov, [facility] [place] [facility] [address] [id number] [place] [address] Nov, [facility] [place] [facility] [address] [id number] [place] [address] Oct, [facility] [place] [facility] [address] [id number] [place] [address] Oct, [facility] [place] [facility] [address] [id number] [place] [address] Sep, [facility] [place] [facility] [address] [id number] [place] [address] Sep, [facility] [place] [facility] [address] [id number] [place] [address] Sep, [facility] [place] [facility] [address] [id number] [place] [address] Sep, [facility] [place] [facility] [address] [id number] [place] [address] Sep, [facility] [place] [facility] [address] [id number] [place] [address] Sep, [facility] [place] [facility] [address] [id number] [place] [address] Sep, [facility] [place] [facility] [address] [id number] [place] [address] Sep, [facility] [place] [facility] [address] [id number] [place] [address] Sep, [facility] [place] [facility] [address] [id number] [place] [address] Sep, [facility] [place] [facility] [address] [id number] [place] [address] Aug, [facility] [place] [facility] [address] [id number] [place] [address] Aug, [facility] [place] [facility] [address] [id number] [place] [address] Aug, [facility] [place] [facility] [address] [id number] [place] [address] Aug, [facility] [place] [facility] [address] [id number] [place] [address] Aug, [facility] [place] [facility] [address] [id number] [place] [address] Jul, [facility] [place] [facility] [address] [id number] [place] [address] Jul, [facility] [place] [facility] [address] [id number] [place] [address] Jul, [facility] [address] [facility] [id number] [place] [address] Jul, IMMUNIZATIONS No Known Immunizations SOCIAL HISTORY [...]
--- OUTSIDE RECORDS SUMMARY | 2020-03-16 11:47 | XMS REPORT ---
Author Author Swathi Benavides Organization [facility] Address [address] [place] [address] Care Team Providers Care Line Installation Supervisor Name Role Phone WIL Benavides Unavailable PROBLEMS Type Condition ICD9-CM Code HVZ45-FU Code Onset Dates Condition S tatus SNOMED Code Problem Sensorineural hearing loss of right ear H90.41 Active 46050715 Problem Obstructive sleep apnea on CPAP G47.33 Active 13255193 Problem Periodic limb movement sleep disorder G47.61 Active 462980889 Problem Iron deficiency anemia due to chronic blood loss D 50.0 Active 18502857 Problem MACHUCA (nonalcoholic steatohepatitis) K75.81 Active 575538058 Problem Vitamin B12 deficiency E53.8 Active 767777939 Problem Chronic diarrhea K52.9 Active 236 007704 Problem Vitamin D deficiency E55.9 Active 69198331 Problem BMI 50.0-59.9, adult Z68.43 Active 169131345 Problem Fatty liver K76.0 Active 31108719 7 Problem Anxiety F41.9 Active 24974433 Problem Major depressive disorder, recurrent episode, moderate F33.1 Active 426712738 Problem Chronic tension-type headache, intractable G44.221 Active 461744692 Problem Right upper quadrant pain R10.11 Acti ve 33594792 Problem Frequent falls R29.6 Active 13820 2001 Problem Crohn's disease of both small and large intestin e with complication K50.819 Active 60696223 Problem Type 2 diabetes mellitus with other specified complication E11.69 Active 374889682821 Problem Hyperlipidemia, unspecified E78.5 Ac tive 82087223 Problem Mixed stress and urge urinary incontinence N39.46 Active 852600054 Problem Sinusitis chronic, frontal J32.1 Act katlyn 98701605 Problem Seasonal allergies J30.2 Active 4 98194344 Problem Other chronic pain G89.29 Active 8 3919997 Problem Hyperlipidemia E78.5 Active 50163 004 Problem Bilateral primary osteoarthritis of knee M17.0 Active 958784469 Problem Essential hypertension I10 Active 94439804 Problem Acquired hypothyroidism E03.9 Active 027397492 Problem History of hysterectomy for benign disease Z90.710 Active 089681885 Problem Morbid (severe) obesity due to excess calories E66 .01 Active 831634402 Problem Other cirrhosis of liver K74.69 Activ e 21134677 Problem Portal hypertension K76.6 Active 43187038 ALLERGIES No Information ENCOUNTERS Encounter Location Date Diagnosis [place] [address] [address] Nov, [place] [address] [address] Oct, Morbid (severe) obesity due to excess ca lories E66.01 and Type 2 diabetes mellitus with other specified complication E11.69 [place] [address] [address] Oct, Essential hypertension I10 ; BMI 50.0-59 .9, adult Z68.43 and Morbid (severe) obesity due to excess calories E66.01 [place] [address] [address] Oct, Encounter for Medicare annual wellness e [...] E78.5 and Other cirrhosis of liver K74.69 [place] [address] [address] Oct, [place] [address] [address] Sep, Major depressive disorder, recurrent epi sode, moderate F33.1 ; Vitamin B12 deficiency E53.8 ; BMI 50.0-59.9, adult Z68.43 and Essential hypertension I10 [facility] [address] [place] [id number] [place] [address] Sep, Breast pain, right N64.4 [facility] [address] [id number] [address] [place] [address] Sep, Breast pain, right N64.4 [facility] [address] [facility] [id number] [address] [place] [address] Sep, Breast pain, right N64.4 [facility] [address] [facility] [id number] [address] [place] [address] Sep, Breast pain, right N64.4 [place] [address] [address] Aug, [place] [address] [place] [id number] [place] [address] Aug, Major depressive disorder, recurrent epi sode, moderate F33.1 ; BMI 50.0-59.9, adult Z68.43 ; Type 2 diabetes mellitus without complication E11.9 ; Breast pain, right N64.4 and Encounter for screening mammogram for breast cancer Z12.31 [facility] [address] [place] [address] Jun, Pneumonia of right middle lo be due to infectious organism J18.1 and Cough R05 [facility] [address] [place] [address] 09 Jun, 2019 Acute nasopharyngitis J00 [place] [address] [place] [id number] [place] [address] May, Iron deficiency anemia due to chronic [...] disorder, recurrent episode, moderate F33.1 [place] [address] [address] May, Hyperlipidemia, unspecified E78.5 ; Othe r cirrhosis of liver K74.69 and Iron deficiency anemia due to chronic blood loss D50.0 [place] [address] [address] February, [facility] [address] [place] [address] February, Acute recurrent pansinusitis J01.41 [facility] [address] [place] [address] February, Acute maxillary sinusitis, r ecurrence not specified J01.00 [place] [address] [address] Jan, Bilateral primary osteoarthritis of knee M17.0 ; Morbid obesity E66.01 ; Viral syndrome B34.9 and Atrial dilatation, left I51.7 [place] [address] [address] Jan, [address] [address] Dec, Trigeminy R00.8 [place] [address] [address] Dec, Essential hypertension I10 ; Morbid obes ity E66.01 ; Low back pain M54.5 ; Other chronic pain G89.29 and Pain in right knee M25.561 [place] [address] [address] Nov, [place] [address] [address] Oct, Palpitations R00.[address] [address] Oct, Encounter for Medicare annual wellness e [...] large intestine with complication K50.819 [place] [address] [address] Oct, [address] [address] Oct, Crohn's disease of both small and large intestine with complication K50.819 [facility] [place] [id number] [place] [address] Jul, Sinusitis chronic, frontal J 32.1 ; Acute mucoid otitis media of both ears H65.113 ; Seasonal allergies J30.2 and BMI 50.0-59.9, adult Z68.[address] [address] 02 Jul, 2018 Essential hypertension I10 ; Type 2 diab etes mellitus with other specified complication E11.69 ; BMI 50.0-59.9, adult Z68.43 ; Mixed stress and urge urinary incontinence N39.46 and Mid back pain on right side M54.[address] [address] Jun, Iron deficiency anemia due to chronic bl ood loss D50.0 ; Hyperlipidemia E78.5 ; Type 2 diabetes mellitus with other specified complication E11.69 ; Vitamin B12 deficiency E53.8 and Vitamin D deficiency E55.9 [facility] [place] [id number] [place] [address] 14 Jun, 2018 Cough R05 and BMI 50.0-59.9, adult Z68.[address] [address] Jun, [place] [address] [address] May, Iron deficiency anemia due to chronic bl ood loss D50.0 ; Chronic diarrhea K52.9 ; Essential hypertension I10 ; Type 2 diabetes mellitus with other specified complication E11.69 ; Vitamin D deficiency E55.9 ; Colon stricture K56.699 ; Vitamin B12 deficiency E53.8 ; Hyperlipidemia E78.5 and BMI 50.0-59.9, adult Z68.43 [place] [address] [address] May, [address] [address] Apr, Nonhealing wound of heel S91.309A and Christopher dy mass index (BMI) of 50-59.9 in adult Z68.43 [place] [address] [address] Mar, [place] [address] [address] Mar, BMI 50.0-59.9, adult Z68.43 ; Flank pain R10.9 and Weight loss counseling, encounter for Z71.3 [place] [address] [address] February, [place] [address] [address] Jan, [place] [address] [address] Jan, [facility] [address] [facility] [id number] [place] [address] Jan, Diarrhea due to staphylococc us A04.8 and Diarrhea, unspecified type R19.7 [place] [address] [place] [id number] [place] [address] Jan, Acquired hypothyroidism E03.9 ; Type 2 d iabetes mellitus with other specified complication E11.69 ; Hyperlipidemia E78.5 ; Essential hypertension I10 ; Major depressive disorder, recurrent episode, moderate F33.1 and Vitamin D deficiency E55.9 [place] [address] [address] Jan, Type 2 diabetes mellitus with other spec ified complication E11.69 ; Hyperlipidemia E78.5 ; Essential hypertension I10 ; Acquired hypothyroidism E03.9 ; Major depressive disorder, recurrent episode, moderate F33.1 ; Vitamin D deficiency E55.9 ; Sinus congestion R09.81 and BMI 50.0-59.9, adult Z68.43 [place] [address] [address] Dec, [address] [address] Sep, Encounter for immunization Z23 [address] [address] Sep, [address] [address] Sep, Vitamin B12 deficiency E53.[address] [address] Aug, [address] [address] Aug, BMI 60.0-69.9, adult Z68.44 and Acute no n-recurrent maxillary sinusitis J01.[address] [address] 14 Aug, [address] [address] Aug, Medicare annual wellness visit, initial Z00.00 ; Screening for breast cancer Z12.31 ; BMI 40.0-44.9, adult Z68.41 and Acquired hypothyroidism E03.[address] [address] Jul, Actinic keratosis L57.0 [place] [address] [place] [address] Jul, Actinic keratosis L57.0 [place] [address] [address] Jul, Type 2 diabetes mellitus with other spec ified complication E11.69 ; Actinic keratosis L57.0 and Hypothyroidism, unspecified E03.9 [place] [address] [address] Jul, [place] [address] [address] Jul, [place] [address] [address] Jul, Vitamin B12 deficiency E53.8 [place] [address] [address] Jun, Acquired hypothyroidism E03.9 and Chroni c tension-type headache, intractable G44.221 [place] [address] [address] Jun, Back muscle spasm M62.830 and BMI 50.0-5 9.9, adult Z68.43 [place] [address] [address] Jun, Vitamin B12 deficiency E53.8 [place] [address] [address] Jun, Crohn's disease of both small and large intestine with complication K50.819 [place] [address] [address] Jun, Crohn's disease of both small and large intestine with complication K50.819 [place] [address] [address] May, Hyperlipidemia E78.5 ; Anxiety F41.9 and Essential hypertension I10 [place] [address] [address] May, [place] [address] [address] May, Encounter for immunization Z23 and Vitam in B12 deficiency E53.8 [place] [address] [address] May, [place] [address] [address] Apr, [place] [address] [address] Apr, [place] [address] [address] Apr, Crohn's disease of both small and large intestine with complication K50.819 [place] [address] [address] Apr, Vitamin B12 deficiency E53.8 [place] [address] [address] Apr, Crohn's disease of both small and large intestine with complication K50.819 and Acute pain of right shoulder M25.511 [place] [address] [address] Mar, Type 2 diabetes mellitus without complic ation E11.9 ; Frequent falls R29.6 and Other chest pain R07.89 [place] [address] [address] Mar, [place] [address] [address] Mar, [place] [address] [address] Mar, Type 2 diabetes mellitus without complic ation E11.9 and Blurry vision, bilateral H53.8 [place] [address] [address] Mar, Vitamin B12 deficiency E53.8 [place] [address] [address] Mar, Crohn's disease of both small and large intestine with complication K50.819 [place] [address] [address] February, Vitamin B12 deficiency E53.8 [place] [address] [address] Jan, Crohn's disease of both small and large intestine with complication K50.819 [place] [address] [address] Jan, Crohn's disease of both small and large intestine with complication K50.819 [facility] [address] [facility] [id number] [place] [address] Jan, Dark brown-colored urine R82 .99 and Acute suppurative otitis media of right ear without spontaneous rupture of tympanic membrane, recurrence not specified H66.001 [place] [address] [address] Jan, Encounter for immunization Z23 [place] [address] [address] Dec, Crohn's disease of both small and large intestine with complication K50.819 and Eustachian tube dysfunction, right H69.81 [place] [address] [address] Dec, [place] [address] [address] Dec, Contusion of right knee, initial encount er S80.01XA [place] [address] [address] Dec, [place] [address] [address] Dec, Acute pain of right knee M25.561 [place] [address] [address] Dec, Iron deficiency anemia due to chronic bl ood loss D50.0 [place] [address] [address] Dec, Hyperlipidemia E78.5 ; Type 2 diabetes m ellitus without complication E11.9 ; Vitamin B12 deficiency E53.8 ; Essential hypertension I10 ; Obstructive sleep apnea on CPAP G47.33 and Periodic limb movement sleep disorder G47.61 [place] [address] [address] 22 Nov, 2016 Type 2 diabetes mellitus without complic ation E11.9 ; Vitamin B12 deficiency E53.8 ; Hyperlipidemia E78.5 ; Essential hypertension I10 ; Obstructive sleep apnea on CPAP G47.33 ; Periodic limb movement sleep disorder G47.61 ; Anxiety F41.9 ; Acquired hypothyroidism E03.9 and Chronic tension-type headache, intractable G44.221 [place] [address] [address] Nov, Crohn's disease of both small and large intestine with complication K50.819 [place] [address] [address] Nov, Vitamin B12 deficiency E53.8 [place] [address] [address] Oct, [place] [address] [address] Oct, Vitamin B12 deficiency E53.8 [place] [address] [address] Sep, [place] [address] [address] Sep, Vitamin B12 deficiency E53.8 [place] [address] [address] Aug, [place] [address] [address] Aug, Vitamin B12 deficiency E53.8 [place] [address] [address] Aug, [place] [address] [address] Jul, Elevated ALT measurement R74.0 [place] [address] [address] Jul, Hematuria R31.9 ; Acute right-sided thor acic back pain M54.6 ; Major depressive disorder, recurrent episode, moderate F33.1 and Elevated ALT measurement R74.0 [place] [address] [address] Jul, [place] [address] [address] Jul, Elevated ALT measurement R74.0 [place] [address] [address] Jul, Iron deficiency anemia due to chronic bl ood loss D50.0 [place] [address] [address] Jul, Type 2 diabetes mellitus without complic ation E11.9 ; Acquired hypothyroidism E03.9 ; Iron deficiency anemia due to chronic blood loss D50.0 ; Hyperlipidemia E78.5 and Essential hypertension I10 [place] [address] [address] 26 Jun, 2016 [place] [address] [address] 20 Jun, 2016 Vitamin B12 deficiency E53.8 [place] [address] [address] 16 Jun, 2016 Type 2 diabetes mellitus without complic ation E11.9 ; Acquired hypothyroidism E03.9 ; Iron deficiency anemia due to chronic blood loss D50.0 ; Hyperlipidemia E78.5 ; Essential hypertension I10 ; Chronic tension-type headache, intractable G44.221 ; Pulsatile tinnitus, bilateral H93.13 ; Obstructive sleep apnea on CPAP G47.33 and Major depressive disorder, recurrent episode, moderate F33.1 [place] [address] [address] 16 May, 2016 Vitamin B12 deficiency E53.8 [place] [address] [address] 08 May, 2016 [place] [address] [address] Apr, Vitamin B12 deficiency E53.8 [place] [address] [address] 05 Apr, 2016 [place] [address] [address] 28 Mar, 2016 Chronic tension-type headache, intractab le G44.221 and Major depressive disorder, recurrent episode, moderate F33.1 [place] [address] [address] 14 Mar, 2016 Vitamin B12 deficiency E53.8 [place] [address] [address] February, [place] [address] [address] February, Vitamin B12 deficiency E53.8 [place] [address] [address] February, [place] [address] [address] Jan, Dysuria R30.0 [place] [address] [address] 22 Jan, 2016 Type 2 diabetes mellitus without complic ation E11.9 and Essential hypertension I10 [place] [address] [address] 15 Jan, 2016 Chronic diarrhea K52.9 [place] [address] [address] 13 Jan, 2016 [place] [address] [address] 12 Jan, 2016 Chronic diarrhea K52.9 [place] [address] [place] [id number] [place] [address] Jan, [place] [address] [address] Jan, Dysuria R30.0 [place] [address] [address] 07 Jan, 2016 Vitamin B12 deficiency E53.8 [place] [address] [address] 07 Jan, 2016 Dysuria R30.0 and Iron deficiency anemia due to chronic blood loss D50.0 [place] [address] [address] 05 Jan, 2016 Dysuria R30.0 [place] [address] [address] Jan, [place] [address] [address] 15 Dec, 2015 [place] [address] [address] Dec, Iron deficiency anemia due to chronic bl ood loss D50.0 [place] [address] [address] 10 Dec, 2015 Dysuria R30.0 ; Fatigue R53.83 ; Hyperli pidemia E78.5 and Diarrhea R19.7 [place] [address] [address] Dec, [place] [address] [address] Dec, [place] [address] [address] 10 Nov, 2015 Vitamin B12 deficiency E53.8 [place] [address] [address] Oct, Vitamin B12 deficiency E53.8 [place] [address] [address] Oct, [facility] [address] [facility] [id number] [address] [place] [address] Oct, Headache R51 [place] [address] [id number] [place] [address] Oct, Essential hypertension I10 ; Type 2 diab etes mellitus without complication E11.9 ; Vitamin B12 deficiency E53.8 ; Acquired hypothyroidism E03.9 ; Iron deficiency anemia due to chronic blood loss D50.0 and Hyperlipidemia E78.5 [place] [address] [address] Sep, Essential hypertension I10 ; Vitamin B12 deficiency E53.8 ; Iron deficiency anemia due to chronic blood loss D50.0 ; Type 2 diabetes mellitus without complication E11.9 ; Hyperlipidemia E78.5 and Acquired hypothyroidism E03.9 [place] [address] [address] Sep, [place] [address] [address] Sep, [place] [address] [address] Jul, [place] [address] [address] Jun, [place] [address] [address] Jun, [place] [address] [address] Jun, Hyperlipidemia 272.4 ; Iron deficiency a nemia 280.9 ; Hypothyroidism 244.9 ; Diabetes mellitus without mention of complication, type II or unspecified type, not stated as uncontrolled 250.00 and Hypertension 401.9 [place] [address] [address] Jun, [place] [address] [address] Jun, [place] [address] [address] May, Hyperlipidemia 272.4 [facility] [address] [address] May, [facility] [address] [address] May, [facility] [address] [address] Apr, Diabetes mellitus without mention of com plication, type II or unspecified type, not stated as uncontrolled 250.00 ; Hypothyroidism 244.9 ; Hyperlipidemia 272.4 ; Pain in joint, lower leg 719.46 and RUQ pain 789.01 [facility] [address] [address] Mar, Sinusitis 473.9 [facility] [address] [address] Mar, [facility] [address] [address] Mar, [facility] [address] [address] Mar, Hematochezia 578.1 [facility] [address] [address] February, Sinusitis 473.9 [facility] [address] [address] February, [facility] [address] [address] Jan, [facility] [address] [address] Jan, [facility] [address] [address] Dec, [facility] [address] [address] Dec, [facility] [address] [address] Dec, [facility] [place] [facility] [address] [facility] [id number] [place] [address] Dec, [facility] [place] [facility] [address] [facility] [id number] [place] [address] Dec, [facility] [place] [facility] [address] [id number] [place] [address] Dec, [facility] [place] [facility] [address] [id number] [place] [address] Dec, [facility] [place] [facility] [address] [facility] [id number] [place] [address] Dec, [facility] [place] [facility] [address] [id number] [place] [address] Dec, [facility] [place] [facility] [address] [id number] [place] [address] Dec, [facility] [place] [facility] [address] [id number] [place] [address] Dec, [facility] [place] [facility] [address] [id number] [place] [address] Nov, [facility] [place] [facility] [address] [id number] [place] [address] Nov, [facility] [place] [facility] [address] [id number] [place] [address] Nov, [facility] [place] [facility] [address] [id number] [place] [address] Nov, [facility] [place] [facility] [address] [id number] [place] [address] Oct, [facility] [place] [facility] [address] [id number] [place] [address] Oct, [facility] [place] [facility] [address] [id number] [place] [address] Oct, [facility] [place] [facility] [address] [id number] [place] [address] Oct, [facility] [place] [facility] [address] [id number] [place] [address] Oct, [facility] [place] [facility] [address] [id number] [place] [address] Oct, [facility] [address] [id number] [place] [address] Sep, [facility] [address] [id number] [place] [address] Sep, [facility] [address] [id number] [place] [address] Sep, [facility] [address] [id number] [place] [address] Sep, [facility] [address] [id number] [place] [address] Sep, [facility] [address] [id number] [place] [address] Sep, [facility] [address] [facility] [id number] [place] [address] Sep, [facility] [place] [facility] [address] [id number] [place] [address] Aug, [facility] [place] [facility] [address] [id number] [place] [address] Aug, [facility] [place] [facility] [address] [id number] [place] [address] Aug, [facility] [place] [facility] [address] [id number] [place] [address] Aug, [facility] [place] [facility] [address] [id number] [place] [address] Aug, [facility] [place] [facility] [id number] [place] [address] Aug, [facility] [place] [facility] [address] [id number] [place] [address] Aug, [facility] [place] [facility] [address] [id number] [place] [address] 18 Aug, 2014 [facility] [place] [facility] [address] [id number] [place] [address] Aug, [facility] [place] [facility] [address] [id number] [place] [address] Aug, [facility] [place] [facility] [address] [id number] [place] [address] Aug, [facility] [place] [facility] [address] [id number] [place] [address] Aug, [facility] [place] [facility] [address] [id number] [place] [address] Aug, [facility] [place] [facility] [address] [id number] [place] [address] Aug, [facility] [place] [facility] [address] [id number] [place] [address] Jul, [facility] [place] [facility] [address] [id number] [place] [address] Jul, [facility] [place] [facility] [address] [id number] [place] [address] Jul, [facility] [place] [facility] [address] [id number] [place] [address] Jul, [facility] [place] [facility] [address] [id number] [place] [address] 24 Jun, 2013 [facility] [place] [facility] [address] [id number] [place] [address] 24 Jun, 2013 [facility] [place] [facility] [address] [id number] [place] [address] 23 Jun, 2013 [facility] [place] [facility] [address] [id number] [place] [address] 23 Jun, 2013 [facility] [place] [facility] [address] [id number] [place] [address] 19 Jun, 2013 [facility] [place] [facility] [address] [id number] [place] [address] 19 Jun, 2013 [facility] [place] [facility] [address] [id number] [place] [address] 11 Jun, 2013 [facility] [place] [facility] [address] [id number] [place] [address] Jun, [facility] [place] [facility] [address] [facility] [place] [place] [id number] [place] [address] Jun, [facility] [place] [facility] [address] [facility] [place] [id number] [place] [address] Jun, 2013 [facility] [place] [facility] [address] [facility] [place] [place] [id number] [place] [address] Jun, [facility] [place] [facility] [address] [id number] [place] [address] Jun, [facility] [place] [facility] [address] [facility] [place] [place] [id number] [place] [address] Jun, [facility] [place] [facility] [address] [id number] [place] [address] Jun, [facility] [place] [facility] [address] [id number] [place] [address] May, [facility] [place] [facility] [address] [id number] [place] [address] May, [facility] [place] [facility] [address] [id number] [place] [address] May, [facility] [place] [facility] [address] [id number] [place] [address] May, [facility] [place] [facility] [address] [id number] [place] [address] May, [facility] [place] [facility] [address] [id number] [place] [address] May, [facility] [place] [facility] [address] [id number] [place] [address] Apr, [facility] [place] [facility] [address] [facility] [place] [place] [id number] [place] [address] Apr, [facility] [place] [facility] [address] [id number] [place] [address] Apr, [facility] [place] [facility] [address] [id number] [place] [address] Apr, [facility] [place] [facility] [address] [facility] [place] [id number] [place] [address] Apr, [facility] [place] [facility] [address] [facility] [place] [place] [id number] [place] [address] Apr, [facility] [place] [facility] [address] [id number] [place] [address] Apr, [facility] [place] [facility] [address] [facility] [place] [id number] [place] [address] Apr, [facility] [place] [facility] [address] [facility] [id number] [place] [address] Apr, [facility] [place] [facility] [address] [id number] [place] [address] Apr, [facility] [place] [facility] [address] [id number] [place] [address] Apr, [facility] [place] [facility] [address] [id number] [place] [address] Mar, [facility] [place] [facility] [address] [facility] [place] [place] [id number] [place] [address] Mar, [facility] [place] [facility] [address] [id number] [place] [address] Mar, [facility] [place] [facility] [address] [id number] [place] [address] Mar, [facility] [place] [facility] [address] [id number] [place] [address] February, [facility] [place] [facility] [address] [facility] [place] [place] [id number] [place] [address] February, [facility] [place] [facility] [address] [id number] [place] [address] Jan, [facility] [place] [facility] [address] [id number] [place] [address] Jan, [facility] [address] [place] [id number] Jan, [facility] [place] [facility] [address] [id number] [place] [address] Jan, [facility] [place] [facility] [address] [id number] [place] [address] Jan, [facility] [place] [facility] [address] [facility] [place] [place] [id number] [place] [address] Jan, [facility] [place] [facility] [address] [id number] [place] [address] Jan, [facility] [place] [facility] [address] [facility] [id number] [place] [address] Jan, [facility] [place] [facility] [address] [id number] [place] [address] Jan, [facility] [place] [facility] [address] [id number] [place] [address] Jan, [facility] [place] [facility] [address] [id number] [place] [address] Jan, [facility] [place] [facility] [address] [id number] [place] [address] Jan, [facility] [place] [facility] [address] [id number] [place] [address] Jan, [facility] [place] [facility] [address] [id number] [place] [address] Jan, [facility] [place] [facility] [address] [id number] [place] [address] Jan, [facility] [place] [facility] [address] [id number] [place] [address] Jan, [facility] [place] [facility] [address] [id number] [place] [address] Jan, [facility] [place] [facility] [address] [id number] [place] [address] Dec, [facility] [place] [facility] [address] [id number] [place] [address] 18 Dec, 2013 [facility] [place] [facility] [address] [id number] [place] [address] Dec, [facility] [place] [facility] [address] [id number] [place] [address] Dec, [facility] [place] [facility] [address] [id number] [place] [address] Dec, [facility] [place] [facility] [address] [id number] [place] [address] Dec, [facility] [place] [facility] [address] [id number] [place] [address] Dec, [facility] [place] [facility] [address] [id number] [place] [address] Nov, [facility] [place] [facility] [address] [id number] [place] [address] Nov, [facility] [place] [facility] [address] [id number] [place] [address] Nov, [facility] [place] [facility] [address] [id number] [place] [address] Nov, [facility] [place] [facility] [address] [id number] [place] [address] Nov, [facility] [place] [facility] [address] [id number] [place] [address] Nov, [facility] [place] [facility] [address] [id number] [place] [address] Nov, [facility] [place] [facility] [address] [id number] [place] [address] Oct, [facility] [place] [facility] [address] [id number] [place] [address] Oct, [facility] [place] [facility] [address] [id number] [place] [address] Sep, [facility] [place] [facility] [address] [id number] [place] [address] Sep, [facility] [place] [facility] [address] [id number] [place] [address] Sep, [facility] [place] [facility] [id number] [place] [address] Sep, [facility] [id number] [place] [address] Sep, [facility] [id number] [place] [address] Sep, [facility] [id number] [place] [address] Sep, [facility] [id number] [place] [address] Sep, [facility] [id number] [place] [address] Sep, [facility] [id number] [place] [address] Sep, [facility] [id number] [place] [address] Aug, [facility] [id number] [place] [address] Aug, [facility] [id number] [place] [address] Aug, [facility] [id number] [place] [address] Aug, [facility] [id number] [place] [address] Aug, [facility] [id number] [place] [address] Jul, [facility] [id number] [place] [address] Jul, [facility] [id number] [place] [address] Jul, [facility] [id number] [place] [address] Jul, IMMUNIZATIONS No Known Immunizations SOCIAL HISTORY [...]
--- OUTSIDE RECORDS SUMMARY | 2020-03-16 11:47 | XMS REPORT ---
Author Author Swathi Benavides Organization [facility] Address [address] [place] [address] Care Team Providers Care Hand Stoner Name Role Phone WIL Benavides Unavailable PROBLEMS Type Condition ICD9-CM Code OZL38-UD Code Onset Dates Condition S tatus SNOMED Code Problem Sensorineural hearing loss of right ear H90.41 Active 73010594 Problem Obstructive sleep apnea on CPAP G47.33 Active 92624970 Problem Periodic limb movement sleep disorder G47.61 Active 737960079 Problem Iron deficiency anemia due to chronic blood loss D 50.0 Active 37960470 Problem MACHUCA (nonalcoholic steatohepatitis) K75.81 Active 475430844 Problem Vitamin B12 deficiency E53.8 Active 699908527 Problem Chronic diarrhea K52.9 Active 236 270175 Problem Vitamin D deficiency E55.9 Active 48618547 Problem BMI 50.0-59.9, adult Z68.43 Active 152732357 Problem Fatty liver K76.0 Active 98990855 7 Problem Anxiety F41.9 Active 57002261 Problem Major depressive disorder, recurrent episode, moderate F33.1 Active 252959904 Problem Chronic tension-type headache, intractable G44.221 Active 248356788 Problem Right upper quadrant pain R10.11 Acti ve 89479830 Problem Frequent falls R29.6 Active 90736 2001 Problem Crohn's disease of both small and large intestin e with complication K50.819 Active 68423676 Problem Type 2 diabetes mellitus with other specified complication E11.69 Active 708072599828 Problem Hyperlipidemia, unspecified E78.5 Ac tive 70834788 Problem Mixed stress and urge urinary incontinence N39.46 Active 957784697 Problem Sinusitis chronic, frontal J32.1 Act katlyn 30531298 Problem Seasonal allergies J30.2 Active 4 36538755 Problem Other chronic pain G89.29 Active 8 0588917 Problem Hyperlipidemia E78.5 Active 93809 004 Problem Bilateral primary osteoarthritis of knee M17.0 Active 451704444 Problem Essential hypertension I10 Active 32214970 Problem Acquired hypothyroidism E03.9 Active 604044634 Problem History of hysterectomy for benign disease Z90.710 Active 786664100 Problem Morbid (severe) obesity due to excess calories E66 .01 Active 767930125 Problem Other cirrhosis of liver K74.69 Activ e 14210075 Problem Portal hypertension K76.6 Active 71409141 ALLERGIES No Information ENCOUNTERS Encounter Location Date Diagnosis [place] [address] [address] Nov, [place] [address] [address] Oct, Morbid (severe) obesity due to excess ca lories E66.01 and Type 2 diabetes mellitus with other specified complication E11.69 [place] [address] [address] Oct, Essential hypertension I10 ; BMI 50.0-59 .9, adult Z68.43 and Morbid (severe) obesity due to excess calories E66.01 [place] [address] [address] Oct, Encounter for Medicare annual wellness e [...] E78.5 and Other cirrhosis of liver K74.69 [place] [address] [address] Oct, [place] [address] [address] Sep, Major depressive disorder, recurrent epi sode, moderate F33.1 ; Vitamin B12 deficiency E53.8 ; BMI 50.0-59.9, adult Z68.43 and Essential hypertension I10 [facility] [address] [place] [id number] [place] [address] Sep, Breast pain, right N64.4 [facility] [address] [facility] [place] [address] Sep, Breast pain, right N64.4 [facility] [address] [facility] [place] [address] Sep, Breast pain, right N64.4 [facility] [address] [facility] [place] [address] Sep, Breast pain, right N64.4 [place] [address] [address] Aug, [place] [address] [place] [id number] [place] [address] Aug, Major depressive disorder, recurrent epi sode, moderate F33.1 ; BMI 50.0-59.9, adult Z68.43 ; Type 2 diabetes mellitus without complication E11.9 ; Breast pain, right N64.4 and Encounter for screening mammogram for breast cancer Z12.31 [facility] [address] [place] [address] Jun, Pneumonia of right middle lo be due to infectious organism J18.1 and Cough R05 [facility] [address] [place] [address] 09 Jun, 2019 Acute nasopharyngitis J00 [place] [address] [place] [id number] [place] [address] May, Iron deficiency anemia due to chronic [...] Major depressive disorder, recurrent episode, moderate F33.1 [place] [address] [address] May, Hyperlipidemia, unspecified E78.5 ; Othe r cirrhosis of liver K74.69 and Iron deficiency anemia due to chronic blood loss D50.0 [place] [address] [address] February, [facility] [address] [place] [address] February, Acute recurrent pansinusitis J01.41 [facility] [address] [place] [address] February, Acute maxillary sinusitis, r ecurrence not specified J01.00 [place] [address] [address] Jan, Bilateral primary osteoarthritis of knee M17.0 ; Morbid obesity E66.01 ; Viral syndrome B34.9 and Atrial dilatation, left I51.7 [place] [address] [address] Jan, [address] [address] Dec, Trigeminy R00.8 [place] [address] [address] Dec, Essential hypertension I10 ; Morbid obes ity E66.01 ; Low back pain M54.5 ; Other chronic pain G89.29 and Pain in right knee M25.561 [place] [address] [address] Nov, [place] [address] [address] Oct, Palpitations R00.[address] [address] Oct, Encounter for Medicare annual wellness e [...] small and large intestine with complication K50.819 [place] [address] [address] Oct, [address] [address] Oct, Crohn's disease of both small and large intestine with complication K50.819 [facility] [place] [id number] [address] [place] [address] Jul, Sinusitis chronic, frontal J 32.1 ; Acute mucoid otitis media of both ears H65.113 ; Seasonal allergies J30.2 and BMI 50.0-59.9, adult Z68.[address] [address] 02 Jul, 2018 Essential hypertension I10 ; Type 2 diab etes mellitus with other specified complication E11.69 ; BMI 50.0-59.9, adult Z68.43 ; Mixed stress and urge urinary incontinence N39.46 and Mid back pain on right side M54.[address] [address] Jun, Iron deficiency anemia due to chronic bl ood loss D50.0 ; Hyperlipidemia E78.5 ; Type 2 diabetes mellitus with other specified complication E11.69 ; Vitamin B12 deficiency E53.8 and Vitamin D deficiency E55.9 [facility] [place] [id number] [place] [address] 14 Jun, 2018 Cough R05 and BMI 50.0-59.9, adult Z68.[address] [address] Jun, [place] [address] [address] May, Iron deficiency anemia due to chronic bl ood loss D50.0 ; Chronic diarrhea K52.9 ; Essential hypertension I10 ; Type 2 diabetes mellitus with other specified complication E11.69 ; Vitamin D deficiency E55.9 ; Colon stricture K56.699 ; Vitamin B12 deficiency E53.8 ; Hyperlipidemia E78.5 and BMI 50.0-59.9, adult Z68.43 [place] [address] [address] May, [address] [address] Apr, Nonhealing wound of heel S91.309A and Christopher dy mass index (BMI) of 50-59.9 in adult Z68.43 [place] [address] [address] Mar, [place] [address] [address] Mar, BMI 50.0-59.9, adult Z68.43 ; Flank pain R10.9 and Weight loss counseling, encounter for Z71.3 [place] [address] [address] February, [place] [address] [address] Jan, [place] [address] [address] Jan, [facility] [address] [facility] [id number] [place] [address] Jan, Diarrhea due to staphylococc us A04.8 and Diarrhea, unspecified type R19.7 [place] [address] [place] [id number] [place] [address] Jan, Acquired hypothyroidism E03.9 ; Type 2 d iabetes mellitus with other specified complication E11.69 ; Hyperlipidemia E78.5 ; Essential hypertension I10 ; Major depressive disorder, recurrent episode, moderate F33.1 and Vitamin D deficiency E55.9 [place] [address] [address] Jan, Type 2 diabetes mellitus with other spec ified complication E11.69 ; Hyperlipidemia E78.5 ; Essential hypertension I10 ; Acquired hypothyroidism E03.9 ; Major depressive disorder, recurrent episode, moderate F33.1 ; Vitamin D deficiency E55.9 ; Sinus congestion R09.81 and BMI 50.0-59.9, adult Z68.43 [place] [address] [address] Dec, [address] [address] Sep, Encounter for immunization Z23 [address] [address] Sep, [address] [address] Sep, Vitamin B12 deficiency E53.[address] [address] Aug, [address] [address] Aug, BMI 60.0-69.9, adult Z68.44 and Acute no n-recurrent maxillary sinusitis J01.[address] [address] 14 Aug, [address] [address] Aug, Medicare annual wellness visit, initial Z00.00 ; Screening for breast cancer Z12.31 ; BMI 40.0-44.9, adult Z68.41 and Acquired hypothyroidism E03.[address] [address] Jul, Actinic keratosis L57.0 [place] [address] [place] [address] Jul, Actinic keratosis L57.0 [place] [address] [address] Jul, Type 2 diabetes mellitus with other spec ified complication E11.69 ; Actinic keratosis L57.0 and Hypothyroidism, unspecified E03.9 [place] [address] [address] Jul, [place] [address] [address] Jul, [place] [address] [address] Jul, Vitamin B12 deficiency E53.8 [place] [address] [address] Jun, Acquired hypothyroidism E03.9 and Chroni c tension-type headache, intractable G44.221 [place] [address] [address] Jun, Back muscle spasm M62.830 and BMI 50.0-5 9.9, adult Z68.43 [place] [address] [address] Jun, Vitamin B12 deficiency E53.8 [place] [address] [address] Jun, Crohn's disease of both small and large intestine with complication K50.819 [place] [address] [address] Jun, Crohn's disease of both small and large intestine with complication K50.819 [place] [address] [address] May, Hyperlipidemia E78.5 ; Anxiety F41.9 and Essential hypertension I10 [place] [address] [address] May, [place] [address] [address] May, Encounter for immunization Z23 and Vitam in B12 deficiency E53.8 [place] [address] [address] May, [place] [address] [address] Apr, [place] [address] [address] Apr, [place] [address] [address] Apr, Crohn's disease of both small and large intestine with complication K50.819 [place] [address] [address] Apr, Vitamin B12 deficiency E53.8 [place] [address] [address] Apr, Crohn's disease of both small and large intestine with complication K50.819 and Acute pain of right shoulder M25.511 [place] [address] [address] Mar, Type 2 diabetes mellitus without complic ation E11.9 ; Frequent falls R29.6 and Other chest pain R07.89 [place] [address] [address] Mar, [place] [address] [address] Mar, [place] [address] [address] Mar, Type 2 diabetes mellitus without complic ation E11.9 and Blurry vision, bilateral H53.8 [place] [address] [address] Mar, Vitamin B12 deficiency E53.8 [place] [address] [address] Mar, Crohn's disease of both small and large intestine with complication K50.819 [place] [address] [address] February, Vitamin B12 deficiency E53.8 [place] [address] [address] Jan, Crohn's disease of both small and large intestine with complication K50.819 [place] [address] [address] Jan, Crohn's disease of both small and large intestine with complication K50.819 [facility] [address] [facility] [id number] [address] [place] [address] Jan, Dark brown-colored urine R82 .99 and Acute suppurative otitis media of right ear without spontaneous rupture of tympanic membrane, recurrence not specified H66.001 [place] [address] [address] Jan, Encounter for immunization Z23 [place] [address] [address] Dec, Crohn's disease of both small and large intestine with complication K50.819 and Eustachian tube dysfunction, right H69.81 [place] [address] [address] Dec, [place] [address] [address] Dec, Contusion of right knee, initial encount er S80.01XA [place] [address] [address] Dec, [place] [address] [address] Dec, Acute pain of right knee M25.561 [place] [address] [address] Dec, Iron deficiency anemia due to chronic bl ood loss D50.0 [place] [address] [address] Dec, Hyperlipidemia E78.5 ; Type 2 diabetes m ellitus without complication E11.9 ; Vitamin B12 deficiency E53.8 ; Essential hypertension I10 ; Obstructive sleep apnea on CPAP G47.33 and Periodic limb movement sleep disorder G47.61 [place] [address] [address] 22 Nov, 2016 Type 2 diabetes mellitus without complic ation E11.9 ; Vitamin B12 deficiency E53.8 ; Hyperlipidemia E78.5 ; Essential hypertension I10 ; Obstructive sleep apnea on CPAP G47.33 ; Periodic limb movement sleep disorder G47.61 ; Anxiety F41.9 ; Acquired hypothyroidism E03.9 and Chronic tension-type headache, intractable G44.221 [place] [address] [address] Nov, Crohn's disease of both small and large intestine with complication K50.819 [place] [address] [address] Nov, Vitamin B12 deficiency E53.8 [place] [address] [address] Oct, [place] [address] [address] Oct, Vitamin B12 deficiency E53.8 [place] [address] [address] Sep, [place] [address] [address] Sep, Vitamin B12 deficiency E53.8 [place] [address] [address] Aug, [place] [address] [address] Aug, Vitamin B12 deficiency E53.8 [place] [address] [address] Aug, [place] [address] [address] Jul, Elevated ALT measurement R74.0 [place] [address] [address] Jul, Hematuria R31.9 ; Acute right-sided thor acic back pain M54.6 ; Major depressive disorder, recurrent episode, moderate F33.1 and Elevated ALT measurement R74.0 [place] [address] [address] Jul, [place] [address] [address] Jul, Elevated ALT measurement R74.0 [place] [address] [address] Jul, Iron deficiency anemia due to chronic bl ood loss D50.0 [place] [address] [address] Jul, Type 2 diabetes mellitus without complic ation E11.9 ; Acquired hypothyroidism E03.9 ; Iron deficiency anemia due to chronic blood loss D50.0 ; Hyperlipidemia E78.5 and Essential hypertension I10 [place] [address] [address] 26 Jun, 2016 [place] [address] [address] 20 Jun, 2016 Vitamin B12 deficiency E53.8 [place] [address] [address] 16 Jun, 2016 Type 2 diabetes mellitus without complic ation E11.9 ; Acquired hypothyroidism E03.9 ; Iron deficiency anemia due to chronic blood loss D50.0 ; Hyperlipidemia E78.5 ; Essential hypertension I10 ; Chronic tension-type headache, intractable G44.221 ; Pulsatile tinnitus, bilateral H93.13 ; Obstructive sleep apnea on CPAP G47.33 and Major depressive disorder, recurrent episode, moderate F33.1 [place] [address] [address] 16 May, 2016 Vitamin B12 deficiency E53.8 [place] [address] [address] 08 May, 2016 [place] [address] [address] Apr, Vitamin B12 deficiency E53.8 [place] [address] [address] 05 Apr, 2016 [place] [address] [address] 28 Mar, 2016 Chronic tension-type headache, intractab le G44.221 and Major depressive disorder, recurrent episode, moderate F33.1 [place] [address] [address] 14 Mar, 2016 Vitamin B12 deficiency E53.8 [place] [address] [address] February, [place] [address] [address] February, Vitamin B12 deficiency E53.8 [place] [address] [address] February, [place] [address] [address] Jan, Dysuria R30.0 [place] [address] [address] 22 Jan, 2016 Type 2 diabetes mellitus without complic ation E11.9 and Essential hypertension I10 [place] [address] [address] 15 Jan, 2016 Chronic diarrhea K52.9 [place] [address] [address] 13 Jan, 2016 [place] [address] [address] 12 Jan, 2016 Chronic diarrhea K52.9 [place] [address] [place] [id number] [place] [address] Jan, [place] [address] [address] Jan, Dysuria R30.0 [place] [address] [address] 07 Jan, 2016 Vitamin B12 deficiency E53.8 [place] [address] [address] 07 Jan, 2016 Dysuria R30.0 and Iron deficiency anemia due to chronic blood loss D50.0 [place] [address] [address] 05 Jan, 2016 Dysuria R30.0 [place] [address] [address] Jan, [place] [address] [address] 15 Dec, 2015 [place] [address] [address] Dec, Iron deficiency anemia due to chronic bl ood loss D50.0 [place] [address] [address] 10 Dec, 2015 Dysuria R30.0 ; Fatigue R53.83 ; Hyperli pidemia E78.5 and Diarrhea R19.7 [place] [address] [address] Dec, [place] [address] [address] Dec, [place] [address] [address] 10 Nov, 2015 Vitamin B12 deficiency E53.8 [place] [address] [address] Oct, Vitamin B12 deficiency E53.8 [place] [address] [address] Oct, [facility] [address] [facility] [id number] [address] [place] [address] Oct, Headache R51 [place] [address] [id number] [place] [address] Oct, Essential hypertension I10 ; Type 2 diab etes mellitus without complication E11.9 ; Vitamin B12 deficiency E53.8 ; Acquired hypothyroidism E03.9 ; Iron deficiency anemia due to chronic blood loss D50.0 and Hyperlipidemia E78.5 [place] [address] [address] Sep, Essential hypertension I10 ; Vitamin B12 deficiency E53.8 ; Iron deficiency anemia due to chronic blood loss D50.0 ; Type 2 diabetes mellitus without complication E11.9 ; Hyperlipidemia E78.5 and Acquired hypothyroidism E03.9 [place] [address] [address] Sep, [place] [address] [address] Sep, [place] [address] [address] Jul, [place] [address] [address] Jun, [place] [address] [address] Jun, [place] [address] [address] Jun, Hyperlipidemia 272.4 ; Iron deficiency a nemia 280.9 ; Hypothyroidism 244.9 ; Diabetes mellitus without mention of complication, type II or unspecified type, not stated as uncontrolled 250.00 and Hypertension 401.9 [place] [address] [address] Jun, [place] [address] [address] Jun, [place] [address] [address] May, Hyperlipidemia 272.4 [facility] [address] [address] May, [facility] [address] [address] May, [facility] [address] [address] Apr, Diabetes mellitus without mention of com plication, type II or unspecified type, not stated as uncontrolled 250.00 ; Hypothyroidism 244.9 ; Hyperlipidemia 272.4 ; Pain in joint, lower leg 719.46 and RUQ pain 789.01 [facility] [address] [address] Mar, Sinusitis 473.9 [facility] [address] [address] Mar, [facility] [address] [address] Mar, [facility] [address] [address] Mar, Hematochezia 578.1 [facility] [address] [address] February, Sinusitis 473.9 [facility] [address] [address] February, [facility] [address] [address] Jan, [facility] [address] [address] Jan, [facility] [address] [address] Dec, [facility] [address] [address] Dec, [facility] [address] [address] Dec, [facility] [place] [facility] [address] [facility] [id number] [place] [address] Dec, [facility] [place] [facility] [address] [facility] [id number] [place] [address] Dec, [facility] [place] [facility] [address] [id number] [place] [address] Dec, [facility] [place] [facility] [address] [id number] [place] [address] Dec, [facility] [place] [facility] [address] [facility] [id number] [place] [address] Dec, [facility] [place] [facility] [address] [id number] [place] [address] Dec, [facility] [place] [facility] [address] [id number] [place] [address] Dec, [facility] [place] [facility] [address] [id number] [place] [address] Dec, [facility] [place] [facility] [address] [id number] [place] [address] Nov, [facility] [place] [facility] [address] [id number] [place] [address] Nov, [facility] [place] [facility] [address] [id number] [place] [address] Nov, [facility] [place] [facility] [address] [id number] [place] [address] Nov, [facility] [place] [facility] [address] [id number] [place] [address] Oct, [facility] [place] [facility] [address] [id number] [place] [address] Oct, [facility] [place] [facility] [address] [id number] [place] [address] Oct, [facility] [place] [facility] [address] [id number] [place] [address] Oct, [facility] [place] [facility] [address] [id number] [place] [address] Oct, [facility] [place] [facility] [address] [id number] [place] [address] Oct, [facility] [place] [facility] [address] [id number] [place] [address] Sep, [facility] [place] [facility] [address] [id number] [place] [address] Sep, [facility] [place] [facility] [address] [id number] [place] [address] Sep, [facility] [address] [id number] [place] [address] Sep, [facility] [address] [id number] [place] [address] Sep, [facility] [address] [id number] [place] [address] Sep, [facility] [address] [id number] [place] [address] Sep, [facility] [address] [id number] [place] [address] Aug, [facility] [address] [id number] [place] [address] Aug, [facility] [address] [id number] [place] [address] Aug, [facility] [address] [id number] [place] [address] Aug, [facility] [address] [id number] [place] [address] Aug, [facility] [id number] [place] [address] Aug, [facility] [address] [id number] [place] [address] Aug, [facility] [address] [id number] [place] [address] 18 Aug, 2014 [facility] [address] [id number] [place] [address] Aug, [facility] [address] [id number] [place] [address] Aug, [facility] [address] [id number] [place] [address] Aug, [facility] [address] [id number] [place] [address] Aug, [facility] [address] [id number] [place] [address] Aug, [facility] [address] [id number] [place] [address] Aug, [facility] [address] [id number] [place] [address] Jul, [facility] [address] [id number] [place] [address] Jul, [facility] [address] [id number] [place] [address] Jul, [facility] [address] [id number] [place] [address] Jul, [facility] [address] [id number] [place] [address] 24 Jun, 2013 [facility] [address] [id number] [place] [address] 24 Jun, 2013 [facility] [address] [id number] [place] [address] 23 Jun, 2013 [facility] [address] [id number] [place] [address] 23 Jun, 2013 [facility] [address] [id number] [place] [address] 19 Jun, 2013 [facility] [address] [id number] [place] [address] 19 Jun, 2013 [facility] [address] [id number] [place] [address] 11 Jun, 2013 [facility] [address] [id number] [place] [address] Jun, [facility] [address] [facility] [id number] [place] [address] Jun, [facility] [address] [facility] [id number] [place] [address] Jun, 2013 [facility] [address] [facility] [id number] [place] [address] Jun, [facility] [address] [id number] [place] [address] Jun, [facility] [address] [facility] [id number] [place] [address] Jun, [facility] [address] [id number] [place] [address] Jun, [facility] [address] [id number] [place] [address] May, [facility] [address] [id number] [place] [address] May, [facility] [address] [id number] [place] [address] May, [facility] [address] [id number] [place] [address] May, [facility] [address] [id number] [place] [address] May, [facility] [address] [id number] [place] [address] May, [facility] [address] [id number] [place] [address] Apr, [facility] [address] [facility] [id number] [place] [address] Apr, [facility] [address] [id number] [place] [address] Apr, [facility] [address] [id number] [place] [address] Apr, [facility] [address] [facility] [id number] [place] [address] Apr, [facility] [address] [facility] [id number] [place] [address] Apr, [facility] [address] [id number] [place] [address] Apr, [facility] [address] [facility] [id number] [place] [address] Apr, [facility] [address] [facility] [id number] [place] [address] Apr, [facility] [address] [id number] [place] [address] Apr, [facility] [address] [id number] [place] [address] Apr, [facility] [address] [id number] [place] [address] Mar, [facility] [address] [facility] [id number] [place] [address] Mar, [facility] [address] [id number] [place] [address] Mar, [facility] [address] [id number] [place] [address] Mar, [facility] [address] [id number] [place] [address] February, [facility] [address] [facility] [id number] [place] [address] February, [facility] [address] [id number] [place] [address] Jan, [facility] [address] [id number] [place] [address] Jan, [address] [facility] [address] [place] [id number] Jan, [facility] [address] [id number] [place] [address] Jan, [facility] [address] [id number] [place] [address] Jan, [facility] [address] [facility] [id number] [place] [address] Jan, [facility] [address] [id number] [place] [address] Jan, [facility] [address] [facility] [id number] [place] [address] Jan, [facility] [address] [id number] [place] [address] Jan, [facility] [address] [id number] [place] [address] Jan, [facility] [address] [id number] [place] [address] Jan, [facility] [address] [id number] [place] [address] Jan, [facility] [address] [id number] [place] [address] Jan, [facility] [address] [id number] [place] [address] Jan, [facility] [address] [id number] [place] [address] Jan, [facility] [address] [id number] [place] [address] Jan, [facility] [address] [id number] [place] [address] Jan, [facility] [address] [id number] [place] [address] Dec, [facility] [address] [id number] [place] [address] 18 Dec, 2013 [facility] [address] [id number] [place] [address] Dec, [facility] [address] [id number] [place] [address] Dec, [facility] [address] [id number] [place] [address] Dec, [facility] [address] [id number] [place] [address] Dec, [facility] [address] [id number] [place] [address] Dec, [facility] [address] [id number] [place] [address] Nov, [facility] [address] [id number] [place] [address] Nov, [facility] [address] [id number] [place] [address] Nov, [facility] [address] [id number] [place] [address] Nov, [facility] [address] [id number] [place] [address] Nov, [facility] [address] [id number] [place] [address] Nov, [facility] [address] [id number] [place] [address] Nov, [facility] [address] [id number] [place] [address] Oct, [facility] [address] [id number] [place] [address] Oct, [facility] [address] [id number] [place] [address] Sep, [facility] [address] [id number] [place] [address] Sep, [facility] [address] [id number] [place] [address] Sep, [facility] [id number] [place] [address] Sep, [facility] [id number] [place] [address] Sep, [facility] [id number] [place] [address] Sep, [facility] [id number] [place] [address] Sep, [facility] [id number] [place] [address] Sep, [facility] [id number] [place] [address] Sep, [facility] [id number] [place] [address] Sep, [facility] [id number] [place] [address] Aug, [facility] [id number] [place] [address] Aug, [facility] [id number] [place] [address] Aug, [facility] [id number] [place] [address] Aug, [facility] [id number] [place] [address] Aug, [facility] [id number] [place] [address] Jul, [facility] [id number] [place] [address] Jul, [facility] [id number] [place] [address] Jul, [facility] [id number] [place] [address] Jul, IMMUNIZATIONS No Known Immunizations SOCIAL HISTORY [...]
--- OUTSIDE RECORDS SUMMARY | 2020-03-16 11:47 | XMS REPORT ---
Author Author Swathi Benavides Organization [facility] Address [address] [place] [address] Care Team Providers Care Multicut Line Operator Name Role Phone WIL Benavides Unavailable PROBLEMS Type Condition ICD9-CM Code PVH06-SY Code Onset Dates Condition S tatus SNOMED Code Problem Sensorineural hearing loss of right ear H90.41 Active 40290457 Problem Obstructive sleep apnea on CPAP G47.33 Active 93512041 Problem Periodic limb movement sleep disorder G47.61 Active 771603611 Problem Iron deficiency anemia due to chronic blood loss D 50.0 Active 49958979 Problem MACHUCA (nonalcoholic steatohepatitis) K75.81 Active 967842626 Problem Vitamin B12 deficiency E53.8 Active 681543329 Problem Chronic diarrhea K52.9 Active 236 897777 Problem Vitamin D deficiency E55.9 Active 16265127 Problem BMI 50.0-59.9, adult Z68.43 Active 134717268 Problem Fatty liver K76.0 Active 16664500 7 Problem Anxiety F41.9 Active 94075042 Problem Major depressive disorder, recurrent episode, moderate F33.1 Active 816950761 Problem Chronic tension-type headache, intractable G44.221 Active 078014943 Problem Right upper quadrant pain R10.11 Acti ve 90080166 Problem Frequent falls R29.6 Active 01971 2001 Problem Crohn's disease of both small and large intestin e with complication K50.819 Active 81975632 Problem Type 2 diabetes mellitus with other specified complication E11.69 Active 904646076417 Problem Hyperlipidemia, unspecified E78.5 Ac tive 58676633 Problem Mixed stress and urge urinary incontinence N39.46 Active 183803594 Problem Sinusitis chronic, frontal J32.1 Act katlyn 31648616 Problem Seasonal allergies J30.2 Active 4 05189749 Problem Other chronic pain G89.29 Active 8 6234493 Problem Hyperlipidemia E78.5 Active 54084 004 Problem Bilateral primary osteoarthritis of knee M17.0 Active 583213998 Problem Essential hypertension I10 Active 22483882 Problem Acquired hypothyroidism E03.9 Active 594812385 Problem History of hysterectomy for benign disease Z90.710 Active 319277245 Problem Morbid (severe) obesity due to excess calories E66 .01 Active 323203078 Problem Other cirrhosis of liver K74.69 Activ e 52518763 Problem Portal hypertension K76.6 Active 96269476 ALLERGIES No Information ENCOUNTERS Encounter Location Date Diagnosis [place] [address] [address] Nov, [place] [address] [address] Oct, Morbid (severe) obesity due to excess ca lories E66.01 and Type 2 diabetes mellitus with other specified complication E11.69 [place] [address] [address] Oct, Essential hypertension I10 ; BMI 50.0-59 .9, adult Z68.43 and Morbid (severe) obesity due to excess calories E66.01 [place] [address] [address] Oct, Encounter for Medicare annual wellness e [...] E78.5 and Other cirrhosis of liver K74.69 [place] [address] [address] Oct, [place] [address] [address] Sep, Major depressive disorder, recurrent epi sode, moderate F33.1 ; Vitamin B12 deficiency E53.8 ; BMI 50.0-59.9, adult Z68.43 and Essential hypertension I10 [facility] [address] [place] [id number] [place] [address] Sep, Breast pain, right N64.4 [facility] [address] [facility] [place] [address] Sep, Breast pain, right N64.4 [facility] [address] [facility] [place] [address] Sep, Breast pain, right N64.4 [facility] [address] [facility] [place] [address] Sep, Breast pain, right N64.4 [place] [address] [address] Aug, [place] [address] [place] [id number] [place] [address] Aug, Major depressive disorder, recurrent epi sode, moderate F33.1 ; BMI 50.0-59.9, adult Z68.43 ; Type 2 diabetes mellitus without complication E11.9 ; Breast pain, right N64.4 and Encounter for screening mammogram for breast cancer Z12.31 [facility] [address] [place] [address] Jun, Pneumonia of right middle lo be due to infectious organism J18.1 and Cough R05 [facility] [address] [place] [address] 09 Jun, 2019 Acute nasopharyngitis J00 [place] [address] [place] [id number] [place] [address] May, Iron deficiency anemia due to chronic [...] Major depressive disorder, recurrent episode, moderate F33.1 [place] [address] [address] May, Hyperlipidemia, unspecified E78.5 ; Othe r cirrhosis of liver K74.69 and Iron deficiency anemia due to chronic blood loss D50.0 [place] [address] [address] February, [facility] [address] [place] [address] February, Acute recurrent pansinusitis J01.41 [facility] [address] [place] [address] February, Acute maxillary sinusitis, r ecurrence not specified J01.00 [place] [address] [address] Jan, Bilateral primary osteoarthritis of knee M17.0 ; Morbid obesity E66.01 ; Viral syndrome B34.9 and Atrial dilatation, left I51.7 [place] [address] [address] Jan, [address] [address] Dec, Trigeminy R00.8 [place] [address] [address] Dec, Essential hypertension I10 ; Morbid obes ity E66.01 ; Low back pain M54.5 ; Other chronic pain G89.29 and Pain in right knee M25.561 [place] [address] [address] Nov, [place] [address] [address] Oct, Palpitations R00.[address] [address] Oct, Encounter for Medicare annual wellness e [...] small and large intestine with complication K50.819 [place] [address] [address] Oct, [address] [address] Oct, Crohn's disease of both small and large intestine with complication K50.819 [facility] [place] [id number] [place] [address] Jul, Sinusitis chronic, frontal J 32.1 ; Acute mucoid otitis media of both ears H65.113 ; Seasonal allergies J30.2 and BMI 50.0-59.9, adult Z68.[address] [address] 02 Jul, 2018 Essential hypertension I10 ; Type 2 diab etes mellitus with other specified complication E11.69 ; BMI 50.0-59.9, adult Z68.43 ; Mixed stress and urge urinary incontinence N39.46 and Mid back pain on right side M54.[address] [address] Jun, Iron deficiency anemia due to chronic bl ood loss D50.0 ; Hyperlipidemia E78.5 ; Type 2 diabetes mellitus with other specified complication E11.69 ; Vitamin B12 deficiency E53.8 and Vitamin D deficiency E55.9 [facility] [place] [id number] [place] [address] 14 Jun, 2018 Cough R05 and BMI 50.0-59.9, adult Z68.[address] [address] Jun, [place] [address] [address] May, Iron deficiency anemia due to chronic bl ood loss D50.0 ; Chronic diarrhea K52.9 ; Essential hypertension I10 ; Type 2 diabetes mellitus with other specified complication E11.69 ; Vitamin D deficiency E55.9 ; Colon stricture K56.699 ; Vitamin B12 deficiency E53.8 ; Hyperlipidemia E78.5 and BMI 50.0-59.9, adult Z68.43 [place] [address] [address] May, [address] [address] Apr, Nonhealing wound of heel S91.309A and Christopher dy mass index (BMI) of 50-59.9 in adult Z68.43 [place] [address] [address] Mar, [place] [address] [address] Mar, BMI 50.0-59.9, adult Z68.43 ; Flank pain R10.9 and Weight loss counseling, encounter for Z71.3 [place] [address] [address] February, [place] [address] [address] Jan, [place] [address] [address] Jan, [facility] [address] [facility] [id number] [place] [address] Jan, Diarrhea due to staphylococc us A04.8 and Diarrhea, unspecified type R19.7 [place] [address] [place] [id number] [place] [address] Jan, Acquired hypothyroidism E03.9 ; Type 2 d iabetes mellitus with other specified complication E11.69 ; Hyperlipidemia E78.5 ; Essential hypertension I10 ; Major depressive disorder, recurrent episode, moderate F33.1 and Vitamin D deficiency E55.9 [place] [address] [address] Jan, Type 2 diabetes mellitus with other spec ified complication E11.69 ; Hyperlipidemia E78.5 ; Essential hypertension I10 ; Acquired hypothyroidism E03.9 ; Major depressive disorder, recurrent episode, moderate F33.1 ; Vitamin D deficiency E55.9 ; Sinus congestion R09.81 and BMI 50.0-59.9, adult Z68.43 [place] [address] [address] Dec, [address] [address] Sep, Encounter for immunization Z23 [address] [address] Sep, [address] [address] Sep, Vitamin B12 deficiency E53.[address] [address] Aug, [address] [address] Aug, BMI 60.0-69.9, adult Z68.44 and Acute no n-recurrent maxillary sinusitis J01.[address] [address] 14 Aug, [address] [address] Aug, Medicare annual wellness visit, initial Z00.00 ; Screening for breast cancer Z12.31 ; BMI 40.0-44.9, adult Z68.41 and Acquired hypothyroidism E03.[address] [address] Jul, Actinic keratosis L57.0 [place] [address] [place] [address] Jul, Actinic keratosis L57.0 [place] [address] [address] Jul, Type 2 diabetes mellitus with other spec ified complication E11.69 ; Actinic keratosis L57.0 and Hypothyroidism, unspecified E03.9 [place] [address] [address] Jul, [place] [address] [address] Jul, [place] [address] [address] Jul, Vitamin B12 deficiency E53.8 [place] [address] [address] Jun, Acquired hypothyroidism E03.9 and Chroni c tension-type headache, intractable G44.221 [place] [address] [address] Jun, Back muscle spasm M62.830 and BMI 50.0-5 9.9, adult Z68.43 [place] [address] [address] Jun, Vitamin B12 deficiency E53.8 [place] [address] [address] Jun, Crohn's disease of both small and large intestine with complication K50.819 [place] [address] [address] Jun, Crohn's disease of both small and large intestine with complication K50.819 [place] [address] [address] May, Hyperlipidemia E78.5 ; Anxiety F41.9 and Essential hypertension I10 [place] [address] [address] May, [place] [address] [address] May, Encounter for immunization Z23 and Vitam in B12 deficiency E53.8 [place] [address] [address] May, [place] [address] [address] Apr, [place] [address] [address] Apr, [place] [address] [address] Apr, Crohn's disease of both small and large intestine with complication K50.819 [place] [address] [address] Apr, Vitamin B12 deficiency E53.8 [place] [address] [address] Apr, Crohn's disease of both small and large intestine with complication K50.819 and Acute pain of right shoulder M25.511 [place] [address] [address] Mar, Type 2 diabetes mellitus without complic ation E11.9 ; Frequent falls R29.6 and Other chest pain R07.89 [place] [address] [address] Mar, [place] [address] [address] Mar, [place] [address] [address] Mar, Type 2 diabetes mellitus without complic ation E11.9 and Blurry vision, bilateral H53.8 [place] [address] [address] Mar, Vitamin B12 deficiency E53.8 [place] [address] [address] Mar, Crohn's disease of both small and large intestine with complication K50.819 [place] [address] [address] February, Vitamin B12 deficiency E53.8 [place] [address] [address] Jan, Crohn's disease of both small and large intestine with complication K50.819 [place] [address] [address] Jan, Crohn's disease of both small and large intestine with complication K50.819 [facility] [address] [facility] [id number] [address] [place] [address] Jan, Dark brown-colored urine R82 .99 and Acute suppurative otitis media of right ear without spontaneous rupture of tympanic membrane, recurrence not specified H66.001 [place] [address] [address] Jan, Encounter for immunization Z23 [place] [address] [address] Dec, Crohn's disease of both small and large intestine with complication K50.819 and Eustachian tube dysfunction, right H69.81 [place] [address] [address] Dec, [place] [address] [address] Dec, Contusion of right knee, initial encount er S80.01XA [place] [address] [address] Dec, [place] [address] [address] Dec, Acute pain of right knee M25.561 [place] [address] [address] Dec, Iron deficiency anemia due to chronic bl ood loss D50.0 [place] [address] [address] Dec, Hyperlipidemia E78.5 ; Type 2 diabetes m ellitus without complication E11.9 ; Vitamin B12 deficiency E53.8 ; Essential hypertension I10 ; Obstructive sleep apnea on CPAP G47.33 and Periodic limb movement sleep disorder G47.61 [place] [address] [address] 22 Nov, 2016 Type 2 diabetes mellitus without complic ation E11.9 ; Vitamin B12 deficiency E53.8 ; Hyperlipidemia E78.5 ; Essential hypertension I10 ; Obstructive sleep apnea on CPAP G47.33 ; Periodic limb movement sleep disorder G47.61 ; Anxiety F41.9 ; Acquired hypothyroidism E03.9 and Chronic tension-type headache, intractable G44.221 [place] [address] [address] Nov, Crohn's disease of both small and large intestine with complication K50.819 [place] [address] [address] Nov, Vitamin B12 deficiency E53.8 [place] [address] [address] Oct, [place] [address] [address] Oct, Vitamin B12 deficiency E53.8 [place] [address] [address] Sep, [place] [address] [address] Sep, Vitamin B12 deficiency E53.8 [place] [address] [address] Aug, [place] [address] [address] Aug, Vitamin B12 deficiency E53.8 [place] [address] [address] Aug, [place] [address] [address] Jul, Elevated ALT measurement R74.0 [place] [address] [address] Jul, Hematuria R31.9 ; Acute right-sided thor acic back pain M54.6 ; Major depressive disorder, recurrent episode, moderate F33.1 and Elevated ALT measurement R74.0 [place] [address] [address] Jul, [place] [address] [address] Jul, Elevated ALT measurement R74.0 [place] [address] [address] Jul, Iron deficiency anemia due to chronic bl ood loss D50.0 [place] [address] [address] Jul, Type 2 diabetes mellitus without complic ation E11.9 ; Acquired hypothyroidism E03.9 ; Iron deficiency anemia due to chronic blood loss D50.0 ; Hyperlipidemia E78.5 and Essential hypertension I10 [place] [address] [address] 26 Jun, 2016 [place] [address] [address] 20 Jun, 2016 Vitamin B12 deficiency E53.8 [place] [address] [address] 16 Jun, 2016 Type 2 diabetes mellitus without complic ation E11.9 ; Acquired hypothyroidism E03.9 ; Iron deficiency anemia due to chronic blood loss D50.0 ; Hyperlipidemia E78.5 ; Essential hypertension I10 ; Chronic tension-type headache, intractable G44.221 ; Pulsatile tinnitus, bilateral H93.13 ; Obstructive sleep apnea on CPAP G47.33 and Major depressive disorder, recurrent episode, moderate F33.1 [place] [address] [address] 16 May, 2016 Vitamin B12 deficiency E53.8 [place] [address] [address] 08 May, 2016 [place] [address] [address] Apr, Vitamin B12 deficiency E53.8 [place] [address] [address] 05 Apr, 2016 [place] [address] [address] 28 Mar, 2016 Chronic tension-type headache, intractab le G44.221 and Major depressive disorder, recurrent episode, moderate F33.1 [place] [address] [address] 14 Mar, 2016 Vitamin B12 deficiency E53.8 [place] [address] [address] February, [place] [address] [address] February, Vitamin B12 deficiency E53.8 [place] [address] [address] February, [place] [address] [address] Jan, Dysuria R30.0 [place] [address] [address] 22 Jan, 2016 Type 2 diabetes mellitus without complic ation E11.9 and Essential hypertension I10 [place] [address] [address] 15 Jan, 2016 Chronic diarrhea K52.9 [place] [address] [address] 13 Jan, 2016 [place] [address] [address] 12 Jan, 2016 Chronic diarrhea K52.9 [place] [address] [place] [id number] [place] [address] Jan, [place] [address] [address] Jan, Dysuria R30.0 [place] [address] [address] 07 Jan, 2016 Vitamin B12 deficiency E53.8 [place] [address] [address] 07 Jan, 2016 Dysuria R30.0 and Iron deficiency anemia due to chronic blood loss D50.0 [place] [address] [address] 05 Jan, 2016 Dysuria R30.0 [place] [address] [address] Jan, [place] [address] [address] 15 Dec, 2015 [place] [address] [address] Dec, Iron deficiency anemia due to chronic bl ood loss D50.0 [place] [address] [address] 10 Dec, 2015 Dysuria R30.0 ; Fatigue R53.83 ; Hyperli pidemia E78.5 and Diarrhea R19.7 [place] [address] [address] Dec, [place] [address] [address] Dec, [place] [address] [address] 10 Nov, 2015 Vitamin B12 deficiency E53.8 [place] [address] [address] Oct, Vitamin B12 deficiency E53.8 [place] [address] [address] Oct, [facility] [address] [facility] [id number] [address] [place] [address] Oct, Headache R51 [place] [address] [id number] [place] [address] Oct, Essential hypertension I10 ; Type 2 diab etes mellitus without complication E11.9 ; Vitamin B12 deficiency E53.8 ; Acquired hypothyroidism E03.9 ; Iron deficiency anemia due to chronic blood loss D50.0 and Hyperlipidemia E78.5 [place] [address] [address] Sep, Essential hypertension I10 ; Vitamin B12 deficiency E53.8 ; Iron deficiency anemia due to chronic blood loss D50.0 ; Type 2 diabetes mellitus without complication E11.9 ; Hyperlipidemia E78.5 and Acquired hypothyroidism E03.9 [place] [address] [address] Sep, [place] [address] [address] Sep, [place] [address] [address] Jul, [place] [address] [address] Jun, [place] [address] [address] Jun, [place] [address] [address] Jun, Hyperlipidemia 272.4 ; Iron deficiency a nemia 280.9 ; Hypothyroidism 244.9 ; Diabetes mellitus without mention of complication, type II or unspecified type, not stated as uncontrolled 250.00 and Hypertension 401.9 [place] [address] [address] Jun, [place] [address] [address] Jun, [place] [address] [address] May, Hyperlipidemia 272.4 [facility] [address] [address] May, [facility] [address] [address] May, [facility] [address] [address] Apr, Diabetes mellitus without mention of com plication, type II or unspecified type, not stated as uncontrolled 250.00 ; Hypothyroidism 244.9 ; Hyperlipidemia 272.4 ; Pain in joint, lower leg 719.46 and RUQ pain 789.01 [facility] [address] [address] Mar, Sinusitis 473.9 [facility] [address] [address] Mar, [facility] [address] [address] Mar, [facility] [address] [address] Mar, Hematochezia 578.1 [facility] [address] [address] February, Sinusitis 473.9 [facility] [address] [address] February, [facility] [address] [address] Jan, [facility] [address] [address] Jan, [facility] [address] [address] Dec, [facility] [address] [address] Dec, [facility] [address] [address] Dec, [facility] [place] [facility] [address] [facility] [id number] [place] [address] Dec, [facility] [place] [facility] [address] [facility] [id number] [facility] [address] Dec, [facility] [place] [facility] [address] [id number] [place] [address] Dec, [facility] [place] [facility] [address] [id number] [place] [address] Dec, [facility] [place] [facility] [address] [facility] [id number] [place] [address] Dec, [facility] [place] [facility] [address] [id number] [place] [address] Dec, [facility] [place] [facility] [address] [id number] [place] [address] Dec, [facility] [place] [facility] [address] [id number] [place] [address] Dec, [facility] [place] [facility] [address] [id number] [place] [address] Nov, [facility] [place] [facility] [address] [id number] [place] [address] Nov, [facility] [address] [id number] [place] [address] Nov, [facility] [address] [id number] [place] [address] Nov, [facility] [address] [id number] [place] [address] Oct, [facility] [address] [id number] [place] [address] Oct, [facility] [address] [id number] [place] [address] Oct, [facility] [address] [id number] [place] [address] Oct, [facility] [address] [id number] [place] [address] Oct, [facility] [address] [id number] [place] [address] Oct, [facility] [address] [id number] [place] [address] Sep, [facility] [address] [id number] [place] [address] Sep, [facility] [address] [id number] [place] [address] Sep, [facility] [address] [id number] [place] [address] Sep, [facility] [address] [id number] [place] [address] Sep, [facility] [address] [id number] [place] [address] Sep, [facility] [address] [id number] [place] [address] Sep, [facility] [address] [id number] [place] [address] Aug, [facility] [address] [id number] [place] [address] Aug, [facility] [address] [id number] [place] [address] Aug, [facility] [address] [id number] [place] [address] Aug, [facility] [address] [id number] [place] [address] Aug, [facility] [id number] [place] [address] Aug, [facility] [address] [id number] [place] [address] Aug, [facility] [address] [id number] [place] [address] 18 Aug, 2014 [facility] [address] [id number] [place] [address] Aug, [facility] [address] [id number] [place] [address] Aug, [facility] [address] [id number] [place] [address] Aug, [facility] [address] [id number] [place] [address] Aug, [facility] [address] [id number] [place] [address] Aug, [facility] [address] [id number] [place] [address] Aug, [facility] [address] [id number] [place] [address] Jul, [facility] [address] [id number] [place] [address] Jul, [facility] [address] [id number] [place] [address] Jul, [facility] [address] [id number] [place] [address] Jul, [facility] [address] [id number] [place] [address] 24 Jun, 2013 [facility] [address] [id number] [place] [address] 24 Jun, 2013 [facility] [address] [id number] [place] [address] 23 Jun, 2013 [facility] [address] [id number] [place] [address] 23 Jun, 2013 [facility] [address] [id number] [place] [address] 19 Jun, 2013 [facility] [address] [id number] [place] [address] 19 Jun, 2013 [facility] [address] [id number] [facility] [place] [address] 11 Jun, 2013 [facility] [address] [id number] [facility] [place] [address] Jun, [facility] [address] [facility] [id number] [facility] [place] [address] Jun, [facility] [address] [facility] [id number] [facility] [place] [address] Jun, 2013 [facility] [address] [facility] [id number] [facility] [place] [address] Jun, [facility] [address] [id number] [facility] [place] [address] Jun, [facility] [address] [facility] [id number] [place] [address] Jun, [facility] [address] [id number] [place] [address] Jun, [facility] [address] [id number] [place] [address] May, [facility] [address] [id number] [place] [address] May, [facility] [address] [id number] [place] [address] May, [facility] [address] [id number] [place] [address] May, [facility] [address] [id number] [place] [address] May, [facility] [address] [id number] [place] [address] May, [facility] [address] [id number] [place] [address] Apr, [facility] [address] [facility] [id number] [place] [address] Apr, [facility] [address] [id number] [place] [address] Apr, [facility] [address] [id number] [place] [address] Apr, [facility] [address] [facility] [id number] [place] [address] Apr, [facility] [address] [facility] [id number] [place] [address] Apr, [facility] [address] [id number] [place] [address] Apr, [facility] [address] [facility] [id number] [place] [address] Apr, [facility] [address] [facility] [id number] [place] [address] Apr, [facility] [address] [id number] [place] [address] Apr, [facility] [address] [id number] [place] [address] Apr, [facility] [address] [id number] [place] [address] Mar, [facility] [address] [facility] [id number] [place] [address] Mar, [facility] [address] [id number] [place] [address] Mar, [facility] [address] [id number] [place] [address] Mar, [facility] [address] [id number] [place] [address] February, [facility] [address] [facility] [id number] [place] [address] February, [facility] [address] [id number] [place] [address] Jan, [facility] [address] [id number] [place] [address] Jan, [facility] [address] [place] [id number] Jan, [facility] [address] [id number] [place] [address] Jan, [facility] [address] [id number] [place] [address] Jan, [facility] [address] [facility] [id number] [place] [address] Jan, [facility] [address] [id number] [place] [address] Jan, [facility] [address] [facility] [id number] [place] [address] Jan, [facility] [address] [id number] [place] [address] Jan, [facility] [address] [id number] [place] [address] Jan, [facility] [address] [id number] [place] [address] Jan, [facility] [address] [id number] [place] [address] Jan, [facility] [address] [id number] [place] [address] Jan, [facility] [address] [id number] [place] [address] Jan, [facility] [address] [id number] [place] [address] Jan, [facility] [address] [id number] [place] [address] Jan, [facility] [address] [id number] [place] [address] Jan, [facility] [address] [id number] [place] [address] Dec, [facility] [address] [id number] [place] [address] 18 Dec, 2013 [facility] [address] [id number] [place] [address] Dec, [facility] [address] [id number] [place] [address] Dec, [facility] [address] [id number] [place] [address] Dec, [facility] [address] [id number] [place] [address] Dec, [facility] [address] [id number] [place] [address] Dec, [facility] [address] [id number] [place] [address] Nov, [facility] [address] [id number] [place] [address] Nov, [facility] [address] [id number] [place] [address] Nov, [facility] [address] [id number] [place] [address] Nov, [facility] [address] [id number] [place] [address] Nov, [facility] [address] [id number] [place] [address] Nov, [facility] [address] [id number] [place] [address] Nov, [facility] [address] [id number] [place] [address] Oct, [facility] [address] [id number] [place] [address] Oct, [facility] [address] [id number] [place] [address] Sep, [facility] [address] [id number] [place] [address] Sep, [facility] [address] [id number] [place] [address] Sep, [facility] [id number] [place] [address] Sep, [facility] [id number] [place] [address] Sep, [facility] [id number] [place] [address] Sep, [facility] [id number] [place] [address] Sep, [facility] [id number] [place] [address] Sep, [facility] [id number] [place] [address] Sep, [facility] [id number] [place] [address] Sep, [facility] [id number] [place] [address] Aug, [facility] [id number] [place] [address] Aug, [facility] [id number] [place] [address] Aug, [facility] [id number] [place] [address] Aug, [facility] [id number] [place] [address] Aug, [facility] [id number] [place] [address] Jul, [facility] [id number] [place] [address] Jul, [facility] [id number] [place] [address] Jul, [facility] [id number] [place] [address] Jul, IMMUNIZATIONS No Known Immunizations SOCIAL HISTORY [...]
--- OUTSIDE RECORDS SUMMARY | 2020-03-16 11:48 | XMS REPORT ---
Author Author Swathi Benavides Organization [facility] Address [address] [place] [address] Care Team Providers Care Social Work Msw Name Role Phone WIL Benavides Unavailable PROBLEMS Type Condition ICD9-CM Code FTF93-XX Code Onset Dates Condition S tatus SNOMED Code Problem Sensorineural hearing loss of right ear H90.41 Active 57004322 Problem Obstructive sleep apnea on CPAP G47.33 Active 76463945 Problem Periodic limb movement sleep disorder G47.61 Active 664195013 Problem Iron deficiency anemia due to chronic blood loss D 50.0 Active 74368894 Problem MACHUCA (nonalcoholic steatohepatitis) K75.81 Active 709492591 Problem Vitamin B12 deficiency E53.8 Active 504578714 Problem Chronic diarrhea K52.9 Active 236 845722 Problem Vitamin D deficiency E55.9 Active 03324708 Problem BMI 50.0-59.9, adult Z68.43 Active 726093790 Problem Fatty liver K76.0 Active 80802415 7 Problem Anxiety F41.9 Active 76104270 Problem Major depressive disorder, recurrent episode, moderate F33.1 Active 652953730 Problem Chronic tension-type headache, intractable G44.221 Active 644521700 Problem Right upper quadrant pain R10.11 Acti ve 23423362 Problem Frequent falls R29.6 Active 16359 2001 Problem Crohn's disease of both small and large intestin e with complication K50.819 Active 31835380 Problem Type 2 diabetes mellitus with other specified complication E11.69 Active 471920463247 Problem Hyperlipidemia, unspecified E78.5 Ac tive 76685432 Problem Mixed stress and urge urinary incontinence N39.46 Active 100481048 Problem Sinusitis chronic, frontal J32.1 Act katlyn 74257640 Problem Seasonal allergies J30.2 Active 4 89353075 Problem Other chronic pain G89.29 Active 8 7088917 Problem Hyperlipidemia E78.5 Active 30525 004 Problem Bilateral primary osteoarthritis of knee M17.0 Active 310568393 Problem Essential hypertension I10 Active 80089688 Problem Acquired hypothyroidism E03.9 Active 161406279 Problem History of hysterectomy for benign disease Z90.710 Active 493605070 Problem Morbid (severe) obesity due to excess calories E66 .01 Active 996718497 Problem Other cirrhosis of liver K74.69 Activ e 54549214 Problem Portal hypertension K76.6 Active 23949617 ALLERGIES No Information ENCOUNTERS Encounter Location Date Diagnosis [place] [address] [address] Nov, [place] [address] [address] Oct, Morbid (severe) obesity due to excess ca lories E66.01 and Type 2 diabetes mellitus with other specified complication E11.69 [place] [address] [address] Oct, Essential hypertension I10 ; BMI 50.0-59 .9, adult Z68.43 and Morbid (severe) obesity due to excess calories E66.01 [place] [address] [address] Oct, Encounter for Medicare annual wellness e [...] E78.5 and Other cirrhosis of liver K74.69 [place] [address] [address] Oct, [place] [address] [address] Sep, Major depressive disorder, recurrent epi sode, moderate F33.1 ; Vitamin B12 deficiency E53.8 ; BMI 50.0-59.9, adult Z68.43 and Essential hypertension I10 [facility] [address] [place] [id number] [place] [address] Sep, Breast pain, right N64.4 [facility] [address] [facility] [place] [address] Sep, Breast pain, right N64.4 [facility] [address] [facility] [place] [address] Sep, Breast pain, right N64.4 [facility] [address] [facility] [place] [address] Sep, Breast pain, right N64.4 [place] [address] [address] Aug, [place] [address] [place] [id number] [place] [address] Aug, Major depressive disorder, recurrent epi sode, moderate F33.1 ; BMI 50.0-59.9, adult Z68.43 ; Type 2 diabetes mellitus without complication E11.9 ; Breast pain, right N64.4 and Encounter for screening mammogram for breast cancer Z12.31 [facility] [address] [place] [address] Jun, Pneumonia of right middle lo be due to infectious organism J18.1 and Cough R05 [facility] [address] [place] [address] 09 Jun, 2019 Acute nasopharyngitis J00 [place] [address] [place] [id number] [place] [address] May, Iron deficiency anemia due to chronic [...] Major depressive disorder, recurrent episode, moderate F33.1 [place] [address] [address] May, Hyperlipidemia, unspecified E78.5 ; Othe r cirrhosis of liver K74.69 and Iron deficiency anemia due to chronic blood loss D50.0 [place] [address] [address] February, [facility] [address] [place] [address] February, Acute recurrent pansinusitis J01.41 [facility] [address] [place] [address] February, Acute maxillary sinusitis, r ecurrence not specified J01.00 [place] [address] [address] Jan, Bilateral primary osteoarthritis of knee M17.0 ; Morbid obesity E66.01 ; Viral syndrome B34.9 and Atrial dilatation, left I51.7 [place] [address] [address] Jan, [address] [address] Dec, Trigeminy R00.8 [place] [address] [address] Dec, Essential hypertension I10 ; Morbid obes ity E66.01 ; Low back pain M54.5 ; Other chronic pain G89.29 and Pain in right knee M25.561 [place] [address] [address] Nov, [place] [address] [address] Oct, Palpitations R00.[address] [address] Oct, Encounter for Medicare annual wellness e [...] small and large intestine with complication K50.819 [place] [address] [address] Oct, [address] [address] Oct, Crohn's disease of both small and large intestine with complication K50.819 [facility] [place] [id number] [place] [address] Jul, Sinusitis chronic, frontal J 32.1 ; Acute mucoid otitis media of both ears H65.113 ; Seasonal allergies J30.2 and BMI 50.0-59.9, adult Z68.[address] [address] 02 Jul, 2018 Essential hypertension I10 ; Type 2 diab etes mellitus with other specified complication E11.69 ; BMI 50.0-59.9, adult Z68.43 ; Mixed stress and urge urinary incontinence N39.46 and Mid back pain on right side M54.[address] [address] Jun, Iron deficiency anemia due to chronic bl ood loss D50.0 ; Hyperlipidemia E78.5 ; Type 2 diabetes mellitus with other specified complication E11.69 ; Vitamin B12 deficiency E53.8 and Vitamin D deficiency E55.9 [facility] [place] [id number] [place] [address] 14 Jun, 2018 Cough R05 and BMI 50.0-59.9, adult Z68.[address] [address] Jun, [place] [address] [address] May, Iron deficiency anemia due to chronic bl ood loss D50.0 ; Chronic diarrhea K52.9 ; Essential hypertension I10 ; Type 2 diabetes mellitus with other specified complication E11.69 ; Vitamin D deficiency E55.9 ; Colon stricture K56.699 ; Vitamin B12 deficiency E53.8 ; Hyperlipidemia E78.5 and BMI 50.0-59.9, adult Z68.43 [place] [address] [address] May, [address] [address] Apr, Nonhealing wound of heel S91.309A and Christopher dy mass index (BMI) of 50-59.9 in adult Z68.43 [place] [address] [address] Mar, [place] [address] [address] Mar, BMI 50.0-59.9, adult Z68.43 ; Flank pain R10.9 and Weight loss counseling, encounter for Z71.3 [place] [address] [address] February, [place] [address] [address] Jan, [place] [address] [address] Jan, [facility] [address] [facility] [id number] [place] [address] Jan, Diarrhea due to staphylococc us A04.8 and Diarrhea, unspecified type R19.7 [place] [address] [place] [id number] [place] [address] Jan, Acquired hypothyroidism E03.9 ; Type 2 d iabetes mellitus with other specified complication E11.69 ; Hyperlipidemia E78.5 ; Essential hypertension I10 ; Major depressive disorder, recurrent episode, moderate F33.1 and Vitamin D deficiency E55.9 [place] [address] [address] Jan, Type 2 diabetes mellitus with other spec ified complication E11.69 ; Hyperlipidemia E78.5 ; Essential hypertension I10 ; Acquired hypothyroidism E03.9 ; Major depressive disorder, recurrent episode, moderate F33.1 ; Vitamin D deficiency E55.9 ; Sinus congestion R09.81 and BMI 50.0-59.9, adult Z68.43 [place] [address] [address] Dec, [address] [address] Sep, Encounter for immunization Z23 [address] [address] Sep, [address] [address] Sep, Vitamin B12 deficiency E53.[address] [address] Aug, [address] [address] Aug, BMI 60.0-69.9, adult Z68.44 and Acute no n-recurrent maxillary sinusitis J01.[address] [address] 14 Aug, [address] [address] Aug, Medicare annual wellness visit, initial Z00.00 ; Screening for breast cancer Z12.31 ; BMI 40.0-44.9, adult Z68.41 and Acquired hypothyroidism E03.[address] [address] Jul, Actinic keratosis L57.0 [place] [address] [place] [address] Jul, Actinic keratosis L57.0 [place] [address] [address] Jul, Type 2 diabetes mellitus with other spec ified complication E11.69 ; Actinic keratosis L57.0 and Hypothyroidism, unspecified E03.9 [place] [address] [address] Jul, [place] [address] [address] Jul, [place] [address] [address] Jul, Vitamin B12 deficiency E53.8 [place] [address] [address] Jun, Acquired hypothyroidism E03.9 and Chroni c tension-type headache, intractable G44.221 [place] [address] [address] Jun, Back muscle spasm M62.830 and BMI 50.0-5 9.9, adult Z68.43 [place] [address] [address] Jun, Vitamin B12 deficiency E53.8 [place] [address] [address] Jun, Crohn's disease of both small and large intestine with complication K50.819 [place] [address] [address] Jun, Crohn's disease of both small and large intestine with complication K50.819 [place] [address] [address] May, Hyperlipidemia E78.5 ; Anxiety F41.9 and Essential hypertension I10 [place] [address] [address] May, [place] [address] [address] May, Encounter for immunization Z23 and Vitam in B12 deficiency E53.8 [place] [address] [address] May, [place] [address] [address] Apr, [place] [address] [address] Apr, [place] [address] [address] Apr, Crohn's disease of both small and large intestine with complication K50.819 [place] [address] [address] Apr, Vitamin B12 deficiency E53.8 [place] [address] [address] Apr, Crohn's disease of both small and large intestine with complication K50.819 and Acute pain of right shoulder M25.511 [place] [address] [address] Mar, Type 2 diabetes mellitus without complic ation E11.9 ; Frequent falls R29.6 and Other chest pain R07.89 [place] [address] [address] Mar, [place] [address] [address] Mar, [place] [address] [address] Mar, Type 2 diabetes mellitus without complic ation E11.9 and Blurry vision, bilateral H53.8 [place] [address] [address] Mar, Vitamin B12 deficiency E53.8 [place] [address] [address] Mar, Crohn's disease of both small and large intestine with complication K50.819 [place] [address] [address] February, Vitamin B12 deficiency E53.8 [place] [address] [address] Jan, Crohn's disease of both small and large intestine with complication K50.819 [place] [address] [address] Jan, Crohn's disease of both small and large intestine with complication K50.819 [facility] [address] [facility] [id number] [address] [place] [address] Jan, Dark brown-colored urine R82 .99 and Acute suppurative otitis media of right ear without spontaneous rupture of tympanic membrane, recurrence not specified H66.001 [place] [address] [address] Jan, Encounter for immunization Z23 [place] [address] [address] Dec, Crohn's disease of both small and large intestine with complication K50.819 and Eustachian tube dysfunction, right H69.81 [place] [address] [address] Dec, [place] [address] [address] Dec, Contusion of right knee, initial encount er S80.01XA [place] [address] [address] Dec, [place] [address] [address] Dec, Acute pain of right knee M25.561 [place] [address] [address] Dec, Iron deficiency anemia due to chronic bl ood loss D50.0 [place] [address] [address] Dec, Hyperlipidemia E78.5 ; Type 2 diabetes m ellitus without complication E11.9 ; Vitamin B12 deficiency E53.8 ; Essential hypertension I10 ; Obstructive sleep apnea on CPAP G47.33 and Periodic limb movement sleep disorder G47.61 [place] [address] [address] 22 Nov, 2016 Type 2 diabetes mellitus without complic ation E11.9 ; Vitamin B12 deficiency E53.8 ; Hyperlipidemia E78.5 ; Essential hypertension I10 ; Obstructive sleep apnea on CPAP G47.33 ; Periodic limb movement sleep disorder G47.61 ; Anxiety F41.9 ; Acquired hypothyroidism E03.9 and Chronic tension-type headache, intractable G44.221 [place] [address] [address] Nov, Crohn's disease of both small and large intestine with complication K50.819 [place] [address] [address] Nov, Vitamin B12 deficiency E53.8 [place] [address] [address] Oct, [place] [address] [address] Oct, Vitamin B12 deficiency E53.8 [place] [address] [address] Sep, [place] [address] [address] Sep, Vitamin B12 deficiency E53.8 [place] [address] [address] Aug, [place] [address] [address] Aug, Vitamin B12 deficiency E53.8 [place] [address] [address] Aug, [place] [address] [address] Jul, Elevated ALT measurement R74.0 [place] [address] [address] Jul, Hematuria R31.9 ; Acute right-sided thor acic back pain M54.6 ; Major depressive disorder, recurrent episode, moderate F33.1 and Elevated ALT measurement R74.0 [place] [address] [address] Jul, [place] [address] [address] Jul, Elevated ALT measurement R74.0 [place] [address] [address] Jul, Iron deficiency anemia due to chronic bl ood loss D50.0 [place] [address] [address] Jul, Type 2 diabetes mellitus without complic ation E11.9 ; Acquired hypothyroidism E03.9 ; Iron deficiency anemia due to chronic blood loss D50.0 ; Hyperlipidemia E78.5 and Essential hypertension I10 [place] [address] [address] 26 Jun, 2016 [place] [address] [address] 20 Jun, 2016 Vitamin B12 deficiency E53.8 [place] [address] [address] 16 Jun, 2016 Type 2 diabetes mellitus without complic ation E11.9 ; Acquired hypothyroidism E03.9 ; Iron deficiency anemia due to chronic blood loss D50.0 ; Hyperlipidemia E78.5 ; Essential hypertension I10 ; Chronic tension-type headache, intractable G44.221 ; Pulsatile tinnitus, bilateral H93.13 ; Obstructive sleep apnea on CPAP G47.33 and Major depressive disorder, recurrent episode, moderate F33.1 [place] [address] [address] 16 May, 2016 Vitamin B12 deficiency E53.8 [place] [address] [address] 08 May, 2016 [place] [address] [address] Apr, Vitamin B12 deficiency E53.8 [place] [address] [address] 05 Apr, 2016 [place] [address] [address] 28 Mar, 2016 Chronic tension-type headache, intractab le G44.221 and Major depressive disorder, recurrent episode, moderate F33.1 [place] [address] [address] 14 Mar, 2016 Vitamin B12 deficiency E53.8 [place] [address] [address] February, [place] [address] [address] February, Vitamin B12 deficiency E53.8 [place] [address] [address] February, [place] [address] [address] Jan, Dysuria R30.0 [place] [address] [address] 22 Jan, 2016 Type 2 diabetes mellitus without complic ation E11.9 and Essential hypertension I10 [place] [address] [address] 15 Jan, 2016 Chronic diarrhea K52.9 [place] [address] [address] 13 Jan, 2016 [place] [address] [address] 12 Jan, 2016 Chronic diarrhea K52.9 [place] [address] [place] [id number] [place] [address] Jan, [place] [address] [address] Jan, Dysuria R30.0 [place] [address] [address] 07 Jan, 2016 Vitamin B12 deficiency E53.8 [place] [address] [address] 07 Jan, 2016 Dysuria R30.0 and Iron deficiency anemia due to chronic blood loss D50.0 [place] [address] [address] 05 Jan, 2016 Dysuria R30.0 [place] [address] [address] Jan, [place] [address] [address] 15 Dec, 2015 [place] [address] [address] Dec, Iron deficiency anemia due to chronic bl ood loss D50.0 [place] [address] [address] 10 Dec, 2015 Dysuria R30.0 ; Fatigue R53.83 ; Hyperli pidemia E78.5 and Diarrhea R19.7 [place] [address] [address] Dec, [place] [address] [address] Dec, [place] [address] [address] 10 Nov, 2015 Vitamin B12 deficiency E53.8 [place] [address] [address] Oct, Vitamin B12 deficiency E53.8 [place] [address] [address] Oct, [facility] [address] [facility] [id number] [address] [place] [address] Oct, Headache R51 [place] [address] [id number] [place] [address] Oct, Essential hypertension I10 ; Type 2 diab etes mellitus without complication E11.9 ; Vitamin B12 deficiency E53.8 ; Acquired hypothyroidism E03.9 ; Iron deficiency anemia due to chronic blood loss D50.0 and Hyperlipidemia E78.5 [place] [address] [address] Sep, Essential hypertension I10 ; Vitamin B12 deficiency E53.8 ; Iron deficiency anemia due to chronic blood loss D50.0 ; Type 2 diabetes mellitus without complication E11.9 ; Hyperlipidemia E78.5 and Acquired hypothyroidism E03.9 [place] [address] [address] Sep, [place] [address] [address] Sep, [place] [address] [address] Jul, [place] [address] [address] Jun, [place] [address] [address] Jun, [place] [address] [address] Jun, Hyperlipidemia 272.4 ; Iron deficiency a nemia 280.9 ; Hypothyroidism 244.9 ; Diabetes mellitus without mention of complication, type II or unspecified type, not stated as uncontrolled 250.00 and Hypertension 401.9 [place] [address] [address] Jun, [place] [address] [address] Jun, [place] [address] [address] May, Hyperlipidemia 272.4 [facility] [address] [address] May, [facility] [address] [address] May, [facility] [address] [address] Apr, Diabetes mellitus without mention of com plication, type II or unspecified type, not stated as uncontrolled 250.00 ; Hypothyroidism 244.9 ; Hyperlipidemia 272.4 ; Pain in joint, lower leg 719.46 and RUQ pain 789.01 [facility] [address] [address] Mar, Sinusitis 473.9 [facility] [address] [address] Mar, [facility] [address] [address] Mar, [facility] [address] [address] Mar, Hematochezia 578.1 [facility] [address] [address] February, Sinusitis 473.9 [facility] [address] [address] February, [facility] [address] [address] Jan, [facility] [address] [address] Jan, [facility] [address] [address] Dec, [facility] [address] [address] Dec, [facility] [address] [address] Dec, [facility] [place] [facility] [address] [facility] [id number] [place] [address] Dec, [facility] [place] [facility] [address] [facility] [id number] [place] [address] Dec, [facility] [place] [facility] [address] [id number] [place] [address] Dec, [facility] [place] [facility] [address] [id number] [place] [address] Dec, [facility] [place] [facility] [address] [facility] [id number] [place] [address] Dec, [facility] [place] [facility] [address] [id number] [place] [address] Dec, [facility] [place] [facility] [address] [id number] [place] [address] Dec, [facility] [place] [facility] [address] [id number] [place] [address] Dec, [facility] [place] [facility] [address] [id number] [place] [address] Nov, [facility] [place] [facility] [address] [id number] [place] [address] Nov, [facility] [place] [facility] [address] [id number] [place] [address] Nov, [facility] [place] [facility] [address] [id number] [place] [address] Nov, [facility] [place] [facility] [address] [id number] [place] [address] Oct, [facility] [place] [facility] [address] [id number] [place] [address] Oct, [facility] [place] [facility] [address] [id number] [place] [address] Oct, [facility] [place] [facility] [address] [id number] [place] [address] Oct, [facility] [place] [facility] [address] [id number] [place] [address] Oct, [facility] [place] [facility] [address] [id number] [place] [address] Oct, [facility] [place] [facility] [address] [id number] [place] [address] Sep, [facility] [place] [facility] [address] [id number] [place] [address] Sep, [facility] [address] [id number] [place] [address] Sep, [facility] [address] [id number] [place] [address] Sep, [facility] [address] [id number] [place] [address] Sep, [facility] [address] [id number] [place] [address] Sep, [facility] [address] [id number] [place] [address] Sep, [facility] [address] [id number] [place] [address] Aug, [facility] [address] [id number] [place] [address] Aug, [facility] [address] [id number] [place] [address] Aug, [facility] [address] [id number] [place] [address] Aug, [facility] [facility] [address] [id number] [place] [address] Aug, [facility] [id number] [place] [address] Aug, [facility] [address] [id number] [place] [address] Aug, [facility] [address] [id number] [place] [address] 18 Aug, 2014 [facility] [address] [id number] [place] [address] Aug, [facility] [address] [id number] [place] [address] Aug, [facility] [address] [id number] [place] [address] Aug, [facility] [address] [id number] [place] [address] Aug, [facility] [address] [id number] [place] [address] Aug, [facility] [address] [id number] [place] [address] Aug, [facility] [address] [id number] [place] [address] Jul, [facility] [address] [id number] [place] [address] Jul, [facility] [address] [id number] [place] [address] Jul, [facility] [address] [id number] [place] [address] Jul, [facility] [address] [id number] [place] [address] 24 Jun, 2013 [facility] [address] [id number] [place] [address] 24 Jun, 2013 [facility] [address] [id number] [place] [address] 23 Jun, 2013 [facility] [address] [id number] [place] [address] 23 Jun, 2013 [facility] [address] [id number] [place] [address] 19 Jun, 2013 [facility] [address] [id number] [place] [address] 19 Jun, 2013 [facility] [address] [id number] [place] [address] 11 Jun, 2013 [facility] [address] [id number] [place] [address] Jun, [facility] [address] [facility] [id number] [place] [address] Jun, [facility] [address] [facility] [id number] [place] [address] Jun, 2013 [facility] [address] [facility] [id number] [place] [address] Jun, [facility] [address] [id number] [place] [address] Jun, [facility] [address] [facility] [id number] [place] [address] Jun, [facility] [address] [id number] [place] [address] Jun, [facility] [address] [id number] [place] [address] May, [facility] [address] [id number] [place] [address] May, [facility] [address] [id number] [place] [address] May, [facility] [address] [id number] [place] [address] May, [facility] [address] [id number] [place] [address] May, [facility] [address] [id number] [place] [address] May, [facility] [address] [id number] [place] [address] Apr, [facility] [address] [facility] [id number] [place] [address] Apr, [facility] [address] [id number] [place] [address] Apr, [facility] [address] [id number] [place] [address] Apr, [facility] [address] [facility] [id number] [place] [address] Apr, [facility] [address] [facility] [id number] [place] [address] Apr, [facility] [address] [id number] [place] [address] Apr, [facility] [address] [facility] [id number] [place] [address] Apr, [facility] [address] [facility] [id number] [place] [address] Apr, [facility] [address] [id number] [place] [address] Apr, [facility] [address] [id number] [place] [address] Apr, [facility] [address] [id number] [place] [address] Mar, [facility] [address] [facility] [id number] [place] [address] Mar, [facility] [address] [id number] [place] [address] Mar, [facility] [address] [id number] [place] [address] Mar, [facility] [address] [id number] [place] [address] February, [facility] [address] [facility] [id number] [place] [address] February, [facility] [address] [id number] [place] [address] Jan, [facility] [address] [id number] [place] [address] Jan, [facility] [address] [place] [id number] Jan, [facility] [address] [id number] [place] [address] Jan, [facility] [address] [id number] [place] [address] Jan, [facility] [address] [facility] [id number] [place] [address] Jan, [facility] [address] [id number] [place] [address] Jan, [facility] [address] [facility] [id number] [place] [address] Jan, [facility] [address] [id number] [place] [address] Jan, [facility] [address] [id number] [place] [address] Jan, [facility] [address] [id number] [place] [address] Jan, [facility] [address] [id number] [place] [address] Jan, [facility] [address] [id number] [place] [address] Jan, [facility] [address] [id number] [place] [address] Jan, [facility] [address] [id number] [place] [address] Jan, [facility] [address] [id number] [place] [address] Jan, [facility] [address] [id number] [place] [address] Jan, [facility] [address] [id number] [place] [address] Dec, [facility] [address] [id number] [place] [address] 18 Dec, 2013 [facility] [address] [id number] [place] [address] Dec, [facility] [address] [id number] [place] [address] Dec, [facility] [address] [id number] [place] [address] Dec, [facility] [address] [id number] [place] [address] Dec, [facility] [address] [id number] [place] [address] Dec, [facility] [address] [id number] [place] [address] Nov, [facility] [address] [id number] [place] [address] Nov, [facility] [address] [id number] [place] [address] Nov, [facility] [address] [id number] [place] [address] Nov, [facility] [address] [id number] [place] [address] Nov, [facility] [address] [id number] [place] [address] Nov, [facility] [address] [id number] [place] [address] Nov, [facility] [address] [id number] [place] [address] Oct, [facility] [address] [id number] [place] [address] Oct, [facility] [address] [id number] [place] [address] Sep, [facility] [address] [id number] [place] [address] Sep, [facility] [address] [id number] [place] [address] Sep, [facility] [id number] [place] [address] Sep, [facility] [id number] [place] [address] Sep, [facility] [id number] [place] [address] Sep, [facility] [id number] [place] [address] Sep, [facility] [id number] [place] [address] Sep, [facility] [id number] [place] [address] Sep, [facility] [id number] [place] [address] Sep, [facility] [id number] [place] [address] Aug, [facility] [id number] [place] [address] Aug, [facility] [id number] [place] [address] Aug, [facility] [id number] [place] [address] Aug, [facility] [id number] [place] [address] Aug, [facility] [id number] [place] [address] Jul, [facility] [id number] [place] [address] Jul, [facility] [id number] [place] [address] Jul, [facility] [id number] [place] [address] Jul, IMMUNIZATIONS No Known Immunizations SOCIAL HISTORY Never Assessed REASON FOR VISIT PLAN OF CARE VITAL SIGNS Height 62 in 2014-01-17 Weight 287 lbs 2014-01-17 Temperature 98.4 degrees Fahrenheit 2014-01-17 Heart Rate 88 bpm 2014-01-17 Respiratory Rate 24 2014-01-17 Blood pressure systolic 104 mmHg 2014-01-17 Blood pressure diastolic 70 mmHg 2014-01-17 MEDICATIONS Unknown Medications RESULTS No Results PROCEDURES Procedure Date Ordered Result Body Site GLYCATED HEMOGLOBIN TEST January 17, 2014 MICROALBUMIN, SEMIQUANT January 17, 2014 INSTRUCTIONS MEDICATIONS ADMINISTERED No Known Medications [...]
--- OUTSIDE RECORDS SUMMARY | 2020-03-16 11:48 | XMS REPORT ---
Author Author Swathi Benavides Organization [facility] Address [address] [place] [address] Care Team Providers [facility] [employer] Name Role Phone WIL Benavides Unavailable PROBLEMS Type Condition ICD9-CM Code LHW58-TS Code Onset Dates Condition S tatus SNOMED Code Problem Sensorineural hearing loss of right ear H90.41 Active 11751811 Problem Obstructive sleep apnea on CPAP G47.33 Active 35138159 Problem Periodic limb movement sleep disorder G47.61 Active 714576552 Problem Iron deficiency anemia due to chronic blood loss D 50.0 Active 34048252 Problem MACHUCA (nonalcoholic steatohepatitis) K75.81 Active 662913022 Problem Vitamin B12 deficiency E53.8 Active 391573440 Problem Chronic diarrhea K52.9 Active 236 378693 Problem Vitamin D deficiency E55.9 Active 43243421 Problem BMI 50.0-59.9, adult Z68.43 Active 154123568 Problem Fatty liver K76.0 Active 66884966 7 Problem Anxiety F41.9 Active 91068347 Problem Major depressive disorder, recurrent episode, moderate F33.1 Active 818773970 Problem Chronic tension-type headache, intractable G44.221 Active 577373622 Problem Right upper quadrant pain R10.11 Acti ve 56453824 Problem Frequent falls R29.6 Active 35234 2001 Problem Crohn's disease of both small and large intestin e with complication K50.819 Active 38504623 Problem Type 2 diabetes mellitus with other specified complication E11.69 Active 032662983986 Problem Hyperlipidemia, unspecified E78.5 Ac tive 44665589 Problem Mixed stress and urge urinary incontinence N39.46 Active 199282093 Problem Sinusitis chronic, frontal J32.1 Act katlyn 10648618 Problem Seasonal allergies J30.2 Active 4 43649881 Problem Other chronic pain G89.29 Active 8 9942239 Problem Hyperlipidemia E78.5 Active 59920 004 Problem Bilateral primary osteoarthritis of knee M17.0 Active 749436056 Problem Essential hypertension I10 Active 92488140 Problem Acquired hypothyroidism E03.9 Active 979850853 Problem History of hysterectomy for benign disease Z90.710 Active 719250605 Problem Morbid (severe) obesity due to excess calories E66 .01 Active 354026731 Problem Other cirrhosis of liver K74.69 Activ e 39917087 Problem Portal hypertension K76.6 Active 68036718 ALLERGIES No Information ENCOUNTERS Encounter Location Date Diagnosis [address] [address] Oct, Morbid (severe) obesity due to excess ca lories E66.01 and Type 2 diabetes mellitus with other specified complication E11.[address] [address] Oct, Essential hypertension I10 ; BMI 50.0-59 .9, adult Z68.43 and Morbid (severe) obesity due to excess calories E66.[address] [address] Oct, Encounter for Medicare annual wellness e [...] E78.5 and Other cirrhosis of liver K74.69 [place] [address] [address] Oct, [address] [address] Sep, Major depressive disorder, recurrent epi sode, moderate F33.1 ; Vitamin B12 deficiency E53.8 ; BMI 50.0-59.9, adult Z68.43 and Essential hypertension I10 [address] [address] Sep, Breast pain, right N64.4 [facility] [address] [facility] [address] [place] [address] Sep, Breast pain, right N64.4 [facility] [address] [facility] [address] [place] [address] Sep, Breast pain, right N64.4 [address] [place] [address] Sep, Breast pain, right N64.4 [place] [address] [address] Aug, [place] [address] [address] Aug, Major depressive disorder, recurrent epi sode, moderate F33.1 ; BMI 50.0-59.9, adult Z68.43 ; Type 2 diabetes mellitus without complication E11.9 ; Breast pain, right N64.4 and Encounter for screening mammogram for breast cancer Z12.31 [facility] IN [facility] [address] [place] [address] Jun, Pneumonia of right middle lo be due to infectious organism J18.1 and Cough R05 [facility] IN [facility] [address] [place] [address] Jun, Acute nasopharyngitis J00 [place] [address] [address] May, Iron deficiency anemia due to chronic [...] Major depressive disorder, recurrent episode, moderate F33.1 [place] [address] [address] May, Hyperlipidemia, unspecified E78.5 ; Othe r cirrhosis of liver K74.69 and Iron deficiency anemia due to chronic blood loss D50.0 [place] [address] [address] February, [facility] [address] [place] [address] February, Acute recurrent pansinusitis J01.41 [facility] WALK IN [facility] [address] [place] [address] February, Acute maxillary sinusitis, r ecurrence not specified J01.00 [place] [address] [address] Jan, Bilateral primary osteoarthritis of knee M17.0 ; Morbid obesity E66.01 ; Viral syndrome B34.9 and Atrial dilatation, left I51.7 [place] [address] [address] Jan, [place] [address] [address] Dec, Trigeminy R00.[address] [address] Dec, Essential hypertension I10 ; Morbid obes ity E66.01 ; Low back pain M54.5 ; Other chronic pain G89.29 and Pain in right knee M25.561 [place] [address] [address] Nov, [place] [address] [address] Oct, Palpitations R00.[address] [address] Oct, Encounter for Medicare annual wellness e [...] small and large intestine with complication K50.819 [place] [address] [address] Oct, [address] [address] Oct, Crohn's disease of both small and large intestine with complication K50.819 [facility] [place] [id number] [address] [place] [address] Jul, Sinusitis chronic, frontal J 32.1 ; Acute mucoid otitis media of both ears H65.113 ; Seasonal allergies J30.2 and BMI 50.0-59.9, adult Z68.[address] [address] Jul, Essential hypertension I10 ; Type 2 diab etes mellitus with other specified complication E11.69 ; BMI 50.0-59.9, adult Z68.43 ; Mixed stress and urge urinary incontinence N39.46 and Mid back pain on right side M54.[address] [address] Jun, Iron deficiency anemia due to chronic bl ood loss D50.0 ; Hyperlipidemia E78.5 ; Type 2 diabetes mellitus with other specified complication E11.69 ; Vitamin B12 deficiency E53.8 and Vitamin D deficiency E55.9 [facility] [place] [address] [id number] [address] [place] [address] Jun, Cough R05 and BMI 50.0-59.9, adult Z68.43 [place] [address] [address] Jun, [address] [address] May, Iron deficiency anemia due to chronic bl ood loss D50.0 ; Chronic diarrhea K52.9 ; Essential hypertension I10 ; Type 2 diabetes mellitus with other specified complication E11.69 ; Vitamin D deficiency E55.9 ; Colon stricture K56.699 ; Vitamin B12 deficiency E53.8 ; Hyperlipidemia E78.5 and BMI 50.0-59.9, adult Z68.[address] [address] May, [address] [address] Apr, Nonhealing wound of heel S91.309A and Christopher dy mass index (BMI) of 50-59.9 in adult Z68.[address] [address] Mar, [address] [address] Mar, BMI 50.0-59.9, adult Z68.43 ; Flank pain R10.9 and Weight loss counseling, encounter for Z71.[address] [address] February, [place] [address] [address] Jan, [address] [address] Jan, [facility] [address] [facility] [id number] [address] [address] Jan, Diarrhea due to staphylococc us A04.8 and Diarrhea, unspecified type R19.[address] [address] Jan, Acquired hypothyroidism E03.9 ; Type 2 d iabetes mellitus with other specified complication E11.69 ; Hyperlipidemia E78.5 ; Essential hypertension I10 ; Major depressive disorder, recurrent episode, moderate F33.1 and Vitamin D deficiency E55.9 [place] [address] [address] Jan, Type 2 diabetes mellitus with other spec ified complication E11.69 ; Hyperlipidemia E78.5 ; Essential hypertension I10 ; Acquired hypothyroidism E03.9 ; Major depressive disorder, recurrent episode, moderate F33.1 ; Vitamin D deficiency E55.9 ; Sinus congestion R09.81 and BMI 50.0-59.9, adult Z68.43 [place] [address] [address] Dec, [place] [address] [address] Sep, Encounter for immunization Z23 [address] [address] Sep, [address] [address] Sep, Vitamin B12 deficiency E53.[address] [address] Aug, [address] [address] Aug, BMI 60.0-69.9, adult Z68.44 and Acute no n-recurrent maxillary sinusitis J01.[address] [address] Aug, [address] [address] Aug, Medicare annual wellness visit, initial Z00.00 ; Screening for breast cancer Z12.31 ; BMI 40.0-44.9, adult Z68.41 and Acquired hypothyroidism E03.[address] [address] Jul, Actinic keratosis L57.0 [place] [address] [address] Jul, Actinic keratosis L57.0 [place] [address] [address] Jul, Type 2 diabetes mellitus with other spec ified complication E11.69 ; Actinic keratosis L57.0 and Hypothyroidism, unspecified E03.9 [place] [address] [address] Jul, [place] [address] [address] Jul, [place] [address] [address] Jul, Vitamin B12 deficiency E53.[address] [address] Jun, Acquired hypothyroidism E03.9 and Chroni c tension-type headache, intractable G44.[address] [address] Jun, Back muscle spasm M62.830 and BMI 50.0-5 9.9, adult Z68.[address] [address] Jun, Vitamin B12 deficiency E53.8 [place] [address] [address] Jun, Crohn's disease of both small and large intestine with complication K50.[address] [address] Jun, Crohn's disease of both small and large intestine with complication K50.819 [place] [address] [address] May, Hyperlipidemia E78.5 ; Anxiety F41.9 and Essential hypertension I10 [place] [address] [address] May, [address] [address] May, Encounter for immunization Z23 and Vitam in B12 deficiency E53.8 [place] [address] [address] May, [place] [address] [address] Apr, [place] [address] [address] Apr, [place] [address] [address] Apr, Crohn's disease of both small and large intestine with complication K50.819 [place] [address] [address] Apr, Vitamin B12 deficiency E53.8 [place] [address] [address] Apr, Crohn's disease of both small and large intestine with complication K50.819 and Acute pain of right shoulder M25.511 [place] [address] [address] Mar, Type 2 diabetes mellitus without complic ation E11.9 ; Frequent falls R29.6 and Other chest pain R07.89 [place] [address] [address] Mar, [place] [address] [address] Mar, [place] [address] [address] Mar, Type 2 diabetes mellitus without complic ation E11.9 and Blurry vision, bilateral H53.8 [place] [address] [address] Mar, Vitamin B12 deficiency E53.8 [place] [address] [address] Mar, Crohn's disease of both small and large intestine with complication K50.819 [place] [address] [address] February, Vitamin B12 deficiency E53.8 [place] [address] [address] Jan, Crohn's disease of both small and large intestine with complication K50.819 [place] [address] [address] Jan, Crohn's disease of both small and large intestine with complication K50.819 [facility] [address] [facility] [id number] [address] [place] [address] Jan, Dark brown-colored urine R82 .99 and Acute suppurative otitis media of right ear without spontaneous rupture of tympanic membrane, recurrence not specified H66.001 [place] [address] [address] Jan, Encounter for immunization Z23 [place] [address] [address] Dec, Crohn's disease of both small and large intestine with complication K50.819 and Eustachian tube dysfunction, right H69.81 [place] [address] [address] Dec, [place] [address] [address] Dec, Contusion of right knee, initial encount er S80.01XA [place] [address] [address] Dec, [place] [address] [address] Dec, Acute pain of right knee M25.561 [place] [address] [address] Dec, Iron deficiency anemia due to chronic bl ood loss D50.0 [place] [address] [address] Dec, Hyperlipidemia E78.5 ; Type 2 diabetes m ellitus without complication E11.9 ; Vitamin B12 deficiency E53.8 ; Essential hypertension I10 ; Obstructive sleep apnea on CPAP G47.33 and Periodic limb movement sleep disorder G47.61 [place] [address] [address] 22 Nov, 2016 Type 2 diabetes mellitus without complic ation E11.9 ; Vitamin B12 deficiency E53.8 ; Hyperlipidemia E78.5 ; Essential hypertension I10 ; Obstructive sleep apnea on CPAP G47.33 ; Periodic limb movement sleep disorder G47.61 ; Anxiety F41.9 ; Acquired hypothyroidism E03.9 and Chronic tension-type headache, intractable G44.221 [place] [address] [address] Nov, Crohn's disease of both small and large intestine with complication K50.819 [place] [address] [address] Nov, Vitamin B12 deficiency E53.8 [place] [address] [address] Oct, [place] [address] [address] Oct, Vitamin B12 deficiency E53.8 [place] [address] [address] Sep, [place] [address] [address] Sep, Vitamin B12 deficiency E53.8 [place] [address] [address] Aug, [place] [address] [address] Aug, Vitamin B12 deficiency E53.8 [place] [address] [address] Aug, [place] [address] [address] Jul, Elevated ALT measurement R74.0 [place] [address] [address] Jul, Hematuria R31.9 ; Acute right-sided thor acic back pain M54.6 ; Major depressive disorder, recurrent episode, moderate F33.1 and Elevated ALT measurement R74.0 [place] [address] [address] Jul, [place] [address] [address] Jul, Elevated ALT measurement R74.0 [place] [address] [address] Jul, Iron deficiency anemia due to chronic bl ood loss D50.0 [place] [address] [address] Jul, Type 2 diabetes mellitus without complic ation E11.9 ; Acquired hypothyroidism E03.9 ; Iron deficiency anemia due to chronic blood loss D50.0 ; Hyperlipidemia E78.5 and Essential hypertension I10 [place] [address] [address] Jun, [place] [address] [address] Jun, Vitamin B12 deficiency E53.8 [place] [address] [address] 16 Jun, 2016 Type 2 diabetes mellitus without complic ation E11.9 ; Acquired hypothyroidism E03.9 ; Iron deficiency anemia due to chronic blood loss D50.0 ; Hyperlipidemia E78.5 ; Essential hypertension I10 ; Chronic tension-type headache, intractable G44.221 ; Pulsatile tinnitus, bilateral H93.13 ; Obstructive sleep apnea on CPAP G47.33 and Major depressive disorder, recurrent episode, moderate F33.1 [place] [address] [address] May, Vitamin B12 deficiency E53.8 [place] [address] [address] 08 May, 2016 [facility] [address] [address] Apr, Vitamin B12 deficiency E53.8 [facility] [address] [address] 05 Apr, 2016 [facility] [address] [address] Mar, Chronic tension-type headache, intractab le G44.221 and Major depressive disorder, recurrent episode, moderate F33.1 [facility] [address] [address] 14 Mar, 2016 Vitamin B12 deficiency E53.8 [place] [address] [address] February, [facility] [address] [address] February, Vitamin B12 deficiency E53.8 [facility] [address] [address] February, [facility] [address] [address] 27 Jan, 2016 Dysuria R30.0 [place] [address] [address] Jan, Type 2 diabetes mellitus without complic ation E11.9 and Essential hypertension I10 [facility] [address] [address] 15 Jan, [address] [facility] [address] [address] 13 Jan, 2016 [facility] [address] [address] Jan, Chronic diarrhea K52.9 [facility] [address] [address] Jan, [place] [address] [place] [id number] [place] [address] 12 Jan, 2016 Dysuria R30.0 [place] [address] [place] [id number] [place] [address] 07 Jan, 2016 Vitamin B12 deficiency E53.8 [place] [address] [place] [id number] [place] [address] 07 Jan, 2016 Dysuria R30.0 and Iron deficiency anemia due to chronic blood loss D50.0 [place] [address] [place] [id number] [place] [address] 05 Jan, 2016 Dysuria R30.0 [place] [address] [address] 04 Jan, 2016 [place] [address] [place] [id number] [place] [address] 15 Dec, 2015 [place] [address] [address] Dec, Iron deficiency anemia due to chronic bl ood loss D50.0 [place] [address] [place] [id number] [place] [address] 10 Dec, 2015 Dysuria R30.0 ; Fatigue R53.83 ; Hyperli pidemia E78.5 and Diarrhea R19.7 [place] [address] [place] [id number] [place] [address] Dec, [place] [address] [address] Dec, [place] [address] [place] [id number] [place] [address] 10 Nov, 2015 Vitamin B12 deficiency E53.8 [place] [address] [place] [id number] [place] [address] Oct, Vitamin B12 deficiency E53.8 [place] [address] [id number] [place] [address] Oct, [facility] [address] [facility] [id number] [address] [place] [address] 09 Oct, 2015 Headache R51 [place] [address] [address] 07 Oct, 2015 Essential hypertension I10 ; Type 2 diab etes mellitus without complication E11.9 ; Vitamin B12 deficiency E53.8 ; Acquired hypothyroidism E03.9 ; Iron deficiency anemia due to chronic blood loss D50.0 and Hyperlipidemia E78.5 [place] [address] [address] Sep, Essential hypertension I10 ; Vitamin B12 deficiency E53.8 ; Iron deficiency anemia due to chronic blood loss D50.0 ; Type 2 diabetes mellitus without complication E11.9 ; Hyperlipidemia E78.5 and Acquired hypothyroidism E03.9 [place] [address] [address] Sep, [place] [address] [address] Sep, [place] [address] [address] Jul, [place] [address] [address] Jun, [place] [address] [address] Jun, [place] [address] [address] Jun, Hyperlipidemia 272.4 ; Iron deficiency a nemia 280.9 ; Hypothyroidism 244.9 ; Diabetes mellitus without mention of complication, type II or unspecified type, not stated as uncontrolled 250.00 and Hypertension 401.9 [place] [address] [address] Jun, [place] [address] [address] Jun, [place] [address] [address] May, Hyperlipidemia 272.4 [place] [address] [place] [id number] [place] [address] May, [facility] [address] [address] May, [facility] [address] [address] Apr, Diabetes mellitus without mention of com plication, type II or unspecified type, not stated as uncontrolled 250.00 ; Hypothyroidism 244.9 ; Hyperlipidemia 272.4 ; Pain in joint, lower leg 719.46 and RUQ pain 789.01 [facility] [address] [address] Mar, Sinusitis 473.9 [facility] [address] [address] Mar, [facility] [address] [address] Mar, [facility] [address] [address] Mar, Hematochezia 578.1 [facility] [address] [address] February, Sinusitis 473.9 [facility] [address] [address] February, [facility] [address] [address] Jan, [facility] [address] [address] Jan, [facility] [address] [address] Dec, [facility] [address] [address] Dec, [facility] [address] [address] Dec, [facility] [address] [address] Dec, [facility] [address] [facility] [id number] [place] [address] Dec, [facility] [address] [id number] [facility] [place] [address] Dec, [facility] [address] [id number] [facility] [place] [address] Dec, [facility] [address] [id number] [facility] [place] [address] Dec, [facility] [address] [id number] [facility] [place] [address] Dec, [facility] [address] [id number] [place] [address] Dec, [facility] [address] [id number] [place] [address] Dec, [facility] [address] [id number] [place] [address] Nov, [facility] [address] [id number] [place] [address] Nov, [facility] [address] [id number] [place] [address] Nov, [facility] [address] [id number] [place] [address] Nov, [facility] [address] [id number] [place] [address] Oct, [facility] [address] [id number] [place] [address] Oct, [facility] [address] [id number] [place] [address] Oct, [facility] [address] [id number] [place] [address] Oct, [facility] [address] [id number] [place] [address] Oct, [facility] [address] [id number] [place] [address] Oct, [facility] [address] [id number] [place] [address] Sep, [facility] [address] [id number] [place] [address] Sep, [facility] [address] [id number] [place] [address] Sep, [facility] [address] [id number] [place] [address] Sep, [facility] [address] [id number] [place] [address] Sep, [facility] [address] [id number] [place] [address] Sep, [facility] [address] [id number] [place] [address] Sep, [facility] [address] [id number] [place] [address] Aug, [facility] [address] [id number] [place] [address] Aug, [facility] [address] [id number] [place] [address] Aug, [facility] [address] [id number] [place] [address] Aug, [facility] [address] [id number] [place] [address] Aug, [facility] [address] [id number] [place] [address] Aug, [facility] [address] [place] [id number] [place] [id number] Aug, [facility] [address] [id number] [place] [address] Aug, [facility] [address] [id number] [place] [address] Aug, [facility] [address] [id number] [place] [address] Aug, [facility] [address] [id number] [place] [address] Aug, [facility] [place] [facility] [address] [id number] [place] [address] Aug, [facility] [place] [facility] [address] [id number] [place] [address] Aug, [facility] [place] [facility] [address] [id number] [place] [address] Aug, [facility] [place] [facility] [address] [id number] [place] [address] Jul, [facility] [place] [facility] [address] [id number] [place] [address] Jul, [facility] [place] [facility] [address] [id number] [place] [address] Jul, [facility] [place] [facility] [address] [id number] [place] [address] Jul, [facility] [place] [facility] [address] [id number] [place] [address] 24 Jun, 2013 [facility] [place] [facility] [address] [id number] [place] [address] 24 Jun, 2013 [facility] [place] [facility] [address] [id number] [place] [address] 23 Jun, 2013 [facility] [place] [facility] [address] [id number] [place] [address] 23 Sep, 2013 [facility] [place] [facility] [address] [id number] [place] [address] 19 Sep, 2013 [facility] [place] [facility] [address] [id number] [place] [address] 19 Jun, 2013 [facility] [place] [facility] [address] [id number] [place] [address] 11 Jun, 2013 [facility] [place] [facility] [address] [id number] [place] [address] 11 Jun, 2013 [facility] [place] [facility] [address] [id number] [facility] [place] [address] Jun, [facility] [place] [facility] [address] [facility] [id number] [facility] [place] [address] Jun, [facility] [place] [facility] [address] [facility] [id number] [facility] [place] [address] Jun, [facility] [place] [facility] [address] [facility] [id number] [facility] [place] [address] Jun, [facility] [place] [facility] [address] [facility] [id number] [facility] [place] [address] Jun, [facility] [place] [facility] [address] [facility] [id number] [place] [address] Jun, [facility] [place] [facility] [address] [id number] [place] [address] May, [facility] [place] [facility] [address] [id number] [place] [address] May, [facility] [place] [facility] [address] [facility] [id number] [place] [address] May, [facility] [place] [facility] [address] [id number] [place] [address] May, [facility] [place] [facility] [address] [id number] [place] [address] May, [facility] [place] [facility] [address] [id number] [place] [address] May, [facility] [place] [facility] [address] [facility] [id number] [place] [address] Apr, [facility] [place] [facility] [address] [id number] [place] [address] Apr, [facility] [place] [facility] [address] [facility] [id number] [place] [address] Apr, [facility] [place] [facility] [address] [id number] [place] [address] Apr, [facility] [place] [facility] [address] [id number] [place] [address] Apr, [facility] [place] [facility] [address] [facility] [id number] [place] [address] Apr, [facility] [place] [facility] [address] [facility] [id number] [place] [address] Apr, [facility] [place] [facility] [address] [id number] [place] [address] Apr, [facility] [place] [facility] [address] [facility] [id number] [place] [address] Apr, [facility] [place] [facility] [address] [facility] [id number] [place] [address] Apr, [facility] [place] [facility] [address] [id number] [place] [address] Apr, [facility] [address] [id number] [place] [address] Mar, [facility] [place] [facility] [address] [id number] [place] [address] Mar, [facility] [place] [facility] [address] [id number] [place] [address] Mar, [facility] [place] [facility] [address] [id number] [place] [address] Mar, [facility] [place] [facility] [address] [id number] [place] [address] February, [facility] [place] [facility] [address] [facility] [id number] [place] [address] February, [facility] [place] [facility] [address] [facility] [id number] [place] [address] Jan, [facility] [place] [facility] [address] [id number] [place] [address] Jan, [facility] [address] [facility] [id number] Jan, [facility] [place] [facility] [address] [id number] [place] [address] Jan, [facility] [place] [facility] [address] [id number] [place] [address] Jan, [facility] [place] [facility] [address] [id number] [place] [address] Jan, [facility] [place] [facility] [address] [id number] [place] [address] Jan, [facility] [place] [facility] [address] [id number] [place] [address] Jan, [facility] [place] [facility] [address] [id number] [place] [address] Jan, [facility] [place] [facility] [address] [id number] [place] [address] Jan, [facility] [place] [facility] [address] [id number] [place] [address] Jan, [facility] [place] [facility] [address] [id number] [place] [address] Jan, [facility] [place] [facility] [address] [id number] [place] [address] Jan, [facility] [place] [facility] [address] [id number] [place] [address] Jan, [facility] [place] [facility] [address] [id number] [place] [address] Jan, [facility] [place] [facility] [address] [id number] [place] [address] Jan, [facility] [place] [facility] [address] [id number] [place] [address] Jan, [facility] [place] [facility] [address] [facility] [id number] [place] [address] 18 Dec, 2013 [facility] [place] [facility] [address] [id number] [place] [address] 18 Dec, 2013 [facility] [place] [facility] [address] [id number] [place] [address] 12 Dec, 2013 [facility] [place] [facility] [address] [id number] [place] [address] Dec, [facility] [place] [facility] [address] [facility] [id number] [facility] [place] [address] Dec, [facility] [place] [facility] [address] [id number] [facility] [place] [address] Dec, [facility] [place] [facility] [address] [id number] [place] [address] Dec, [facility] [place] [facility] [address] [id number] [place] [address] Nov, [facility] [place] [facility] [address] [id number] [facility] [place] [address] Nov, [facility] [place] [facility] [address] [id number] [place] [address] Nov, [facility] [place] [facility] [address] [id number] [place] [address] Nov, [facility] [place] [facility] [address] [id number] [place] [address] Nov, [facility] [place] [facility] [address] [id number] [place] [address] Nov, [facility] [place] [facility] [address] [id number] [place] [address] Nov, [facility] [place] [facility] [address] [id number] [place] [address] Oct, [facility] [place] [facility] [address] [id number] [place] [address] Oct, [facility] [place] [facility] [address] [id number] [place] [address] Sep, [facility] [place] [facility] [address] [id number] [place] [address] Sep, [facility] [place] [facility] [address] [id number] [place] [address] Sep, [facility] [place] [facility] [address] [id number] [place] [address] Sep, [facility] [place] [facility] [id number] [place] [address] Sep, [facility] [id number] [place] [address] Sep, [facility] [id number] [place] [address] Sep, [facility] [id number] [place] [address] Sep, [facility] [id number] [place] [address] Sep, [facility] [id number] [place] [address] Sep, [facility] [id number] [place] [address] Aug, [facility] [id number] [place] [address] Aug, [facility] [id number] [place] [address] Aug, [facility] [id number] [place] [address] Aug, [facility] [id number] [place] [address] Aug, [facility] [id number] [place] [address] Jul, [facility] [id number] [place] [address] Jul, [facility] [id number] [place] [address] Jul, [facility] [id number] [place] [address] Jul, IMMUNIZATIONS No Known Immunizations SOCIAL HISTORY Never Assessed REASON FOR VISIT PLAN OF CARE VITAL SIGNS Height 62 in 2014-01-29 Weight 293 lbs 2014-01-29 Temperature 98.8 degrees Fahrenheit 2014-01-29 Heart Rate 92 bpm 2014-01-29 Respiratory Rate 24 2014-01-29 Blood pressure systolic 158 mmHg 2014-01-29 Blood pressure diastolic 94 mmHg 2014-01-29 MEDICATIONS Unknown Medications RESULTS No Results PROCEDURES Procedure Date Ordered Result Body Site COMPLETE CBC W/AUTO DIFF WBC January 29, 2014 HELICOBACTER PYLORI January 29, 2014 ASSAY OF LIPASE January 29, 2014 COMPREHEN METABOLIC PANEL January 29, 2014 CT ABDOMEN W/O&W/DYE January 29, 2014 INSTRUCTIONS MEDICATIONS ADMINISTERED No Known Medications [...]
--- OUTSIDE RECORDS SUMMARY | 2020-03-16 11:48 | XMS REPORT ---
Author Author Swathi Benavides Organization 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 Name Role Phone WIL Benavides Unavailable PROBLEMS Type Condition ICD9-CM Code DBC90-ZN Code Onset Dates Condition S tatus SNOMED Code Problem Sensorineural hearing loss of right ear H90.41 Active 65812094 Problem Obstructive sleep apnea on CPAP G47.33 Active 58507727 Problem Periodic limb movement sleep disorder G47.61 Active 046435803 Problem Iron deficiency anemia due to chronic blood loss D 50.0 Active 79907644 Problem MACHUCA (nonalcoholic steatohepatitis) K75.81 Active 690945675 Problem Vitamin B12 deficiency E53.8 Active 586410701 Problem Chronic diarrhea K52.9 Active 236 717724 Problem Vitamin D deficiency E55.9 Active 62570903 Problem BMI 50.0-59.9, adult Z68.43 Active 178770347 Problem Fatty liver K76.0 Active 35405544 7 Problem Anxiety F41.9 Active 00178982 Problem Major depressive disorder, recurrent episode, moderate F33.1 Active 635758864 Problem Chronic tension-type headache, intractable G44.221 Active 607527830 Problem Right upper quadrant pain R10.11 Acti ve 42667873 Problem Frequent falls R29.6 Active 78546 2001 Problem Crohn's disease of both small and large intestin e with complication K50.819 Active 82086139 Problem Type 2 diabetes mellitus with other specified complication E11.69 Active 096442519856 Problem Hyperlipidemia, unspecified E78.5 Ac tive 14130292 Problem Mixed stress and urge urinary incontinence N39.46 Active 615183172 Problem Sinusitis chronic, frontal J32.1 Act katlyn 02054131 Problem Seasonal allergies J30.2 Active 4 94521756 Problem Other chronic pain G89.29 Active 8 9184304 Problem Hyperlipidemia E78.5 Active 68049 004 Problem Bilateral primary osteoarthritis of knee M17.0 Active 841960543 Problem Essential hypertension I10 Active 83943059 Problem Acquired hypothyroidism E03.9 Active 563071683 Problem History of hysterectomy for benign disease Z90.710 Active 635261482 Problem Morbid (severe) obesity due to excess calories E66 .01 Active 076435259 Problem Other cirrhosis of liver K74.69 Activ e 68029071 Problem Portal hypertension K76.6 Active 17491373 ALLERGIES No Information ENCOUNTERS Encounter Location Date Diagnosis [place] [address] [address] Nov, [place] [address] [address] Oct, Morbid (severe) obesity due to excess ca lories E66.01 and Type 2 diabetes mellitus with other specified complication E11.69 [place] [address] [address] Oct, Essential hypertension I10 ; BMI 50.0-59 .9, adult Z68.43 and Morbid (severe) obesity due to excess calories E66.01 [place] [address] [address] Oct, Encounter for Medicare annual wellness e [...] E78.5 and Other cirrhosis of liver K74.69 [place] [address] [address] Oct, [place] [address] [address] Sep, Major depressive disorder, recurrent epi sode, moderate F33.1 ; Vitamin B12 deficiency E53.8 ; BMI 50.0-59.9, adult Z68.43 and Essential hypertension I10 [facility] [address] [place] [id number] [place] [address] Sep, Breast pain, right N64.4 [facility] [address] [id number] [address] [place] [address] Sep, Breast pain, right N64.4 [facility] [address] [id number] [address] [place] [address] Sep, Breast pain, right N64.4 [facility] [address] [id number] [address] [place] [address] Sep, Breast pain, right N64.4 [place] [address] [address] Aug, [place] [address] [place] [id number] [place] [address] Aug, Major depressive disorder, recurrent epi sode, moderate F33.1 ; BMI 50.0-59.9, adult Z68.43 ; Type 2 diabetes mellitus without complication E11.9 ; Breast pain, right N64.4 and Encounter for screening mammogram for breast cancer Z12.31 [facility] IN [facility] [address] [place] [address] Jun, Pneumonia of right middle lo be due to infectious organism J18.1 and Cough R05 [facility] IN [facility] [address] [place] [address] 09 Jun, 2019 Acute nasopharyngitis J00 [place] [address] [place] [id number] [place] [address] May, Iron deficiency anemia due to chronic [...] Major depressive disorder, recurrent episode, moderate F33.1 [place] [address] [address] May, Hyperlipidemia, unspecified E78.5 ; Othe r cirrhosis of liver K74.69 and Iron deficiency anemia due to chronic blood loss D50.0 [place] [address] [address] February, [facility] [address] [place] [address] February, Acute recurrent pansinusitis J01.41 [facility] [address] [place] [address] February, Acute maxillary sinusitis, r ecurrence not specified J01.00 [place] [address] [address] Jan, Bilateral primary osteoarthritis of knee M17.0 ; Morbid obesity E66.01 ; Viral syndrome B34.9 and Atrial dilatation, left I51.7 [place] [address] [address] Jan, [address] [address] Dec, Trigeminy R00.8 [place] [address] [address] Dec, Essential hypertension I10 ; Morbid obes ity E66.01 ; Low back pain M54.5 ; Other chronic pain G89.29 and Pain in right knee M25.561 [place] [address] [address] Nov, [place] [address] [address] Oct, Palpitations R00.[address] [address] Oct, Encounter for Medicare annual wellness e [...] small and large intestine with complication K50.819 [place] [address] [address] Oct, [address] [address] Oct, Crohn's disease of both small and large intestine with complication K50.819 [facility] [place] [id number] [address] [place] [address] Jul, Sinusitis chronic, frontal J 32.1 ; Acute mucoid otitis media of both ears H65.113 ; Seasonal allergies J30.2 and BMI 50.0-59.9, adult Z68.[address] [address] 02 Jul, 2018 Essential hypertension I10 ; Type 2 diab etes mellitus with other specified complication E11.69 ; BMI 50.0-59.9, adult Z68.43 ; Mixed stress and urge urinary incontinence N39.46 and Mid back pain on right side M54.[address] [address] Jun, Iron deficiency anemia due to chronic bl ood loss D50.0 ; Hyperlipidemia E78.5 ; Type 2 diabetes mellitus with other specified complication E11.69 ; Vitamin B12 deficiency E53.8 and Vitamin D deficiency E55.9 [facility] [place] [id number] [place] [address] 14 Jun, 2018 Cough R05 and BMI 50.0-59.9, adult Z68.[address] [address] Jun, [place] [address] [address] May, Iron deficiency anemia due to chronic bl ood loss D50.0 ; Chronic diarrhea K52.9 ; Essential hypertension I10 ; Type 2 diabetes mellitus with other specified complication E11.69 ; Vitamin D deficiency E55.9 ; Colon stricture K56.699 ; Vitamin B12 deficiency E53.8 ; Hyperlipidemia E78.5 and BMI 50.0-59.9, adult Z68.43 [place] [address] [address] May, [address] [address] Apr, Nonhealing wound of heel S91.309A and Christopher dy mass index (BMI) of 50-59.9 in adult Z68.43 [place] [address] [address] Mar, [place] [address] [address] Mar, BMI 50.0-59.9, adult Z68.43 ; Flank pain R10.9 and Weight loss counseling, encounter for Z71.3 [place] [address] [address] February, [place] [address] [address] Jan, [place] [address] [address] Jan, [facility] [address] [facility] [id number] [address] [place] [address] Jan, Diarrhea due to staphylococc us A04.8 and Diarrhea, unspecified type R19.7 [place] [address] [place] [id number] [place] [address] Jan, Acquired hypothyroidism E03.9 ; Type 2 d iabetes mellitus with other specified complication E11.69 ; Hyperlipidemia E78.5 ; Essential hypertension I10 ; Major depressive disorder, recurrent episode, moderate F33.1 and Vitamin D deficiency E55.9 [place] [address] [address] Jan, Type 2 diabetes mellitus with other spec ified complication E11.69 ; Hyperlipidemia E78.5 ; Essential hypertension I10 ; Acquired hypothyroidism E03.9 ; Major depressive disorder, recurrent episode, moderate F33.1 ; Vitamin D deficiency E55.9 ; Sinus congestion R09.81 and BMI 50.0-59.9, adult Z68.43 [place] [address] [address] Dec, [address] [address] Sep, Encounter for immunization Z23 [address] [address] Sep, [address] [address] Sep, Vitamin B12 deficiency E53.[address] [address] Aug, [address] [address] Aug, BMI 60.0-69.9, adult Z68.44 and Acute no n-recurrent maxillary sinusitis J01.[address] [address] 14 Aug, [address] [address] Aug, Medicare annual wellness visit, initial Z00.00 ; Screening for breast cancer Z12.31 ; BMI 40.0-44.9, adult Z68.41 and Acquired hypothyroidism E03.[address] [address] Jul, Actinic keratosis L57.0 [place] [address] [place] [address] Jul, Actinic keratosis L57.0 [place] [address] [address] Jul, Type 2 diabetes mellitus with other spec ified complication E11.69 ; Actinic keratosis L57.0 and Hypothyroidism, unspecified E03.9 [place] [address] [address] Jul, [place] [address] [address] Jul, [place] [address] [address] Jul, Vitamin B12 deficiency E53.8 [place] [address] [address] Jun, Acquired hypothyroidism E03.9 and Chroni c tension-type headache, intractable G44.221 [place] [address] [address] Jun, Back muscle spasm M62.830 and BMI 50.0-5 9.9, adult Z68.43 [place] [address] [address] Jun, Vitamin B12 deficiency E53.8 [place] [address] [address] Jun, Crohn's disease of both small and large intestine with complication K50.819 [place] [address] [address] Jun, Crohn's disease of both small and large intestine with complication K50.819 [place] [address] [address] May, Hyperlipidemia E78.5 ; Anxiety F41.9 and Essential hypertension I10 [place] [address] [address] May, [place] [address] [address] May, Encounter for immunization Z23 and Vitam in B12 deficiency E53.8 [place] [address] [address] May, [place] [address] [address] Apr, [place] [address] [address] Apr, [place] [address] [address] Apr, Crohn's disease of both small and large intestine with complication K50.819 [place] [address] [address] Apr, Vitamin B12 deficiency E53.8 [place] [address] [address] Apr, Crohn's disease of both small and large intestine with complication K50.819 and Acute pain of right shoulder M25.511 [place] [address] [address] Mar, Type 2 diabetes mellitus without complic ation E11.9 ; Frequent falls R29.6 and Other chest pain R07.89 [place] [address] [address] Mar, [place] [address] [address] Mar, [place] [address] [address] Mar, Type 2 diabetes mellitus without complic ation E11.9 and Blurry vision, bilateral H53.8 [place] [address] [address] Mar, Vitamin B12 deficiency E53.8 [place] [address] [address] Mar, Crohn's disease of both small and large intestine with complication K50.819 [place] [address] [address] February, Vitamin B12 deficiency E53.8 [place] [address] [address] Jan, Crohn's disease of both small and large intestine with complication K50.819 [place] [address] [address] Jan, Crohn's disease of both small and large intestine with complication K50.819 [facility] [address] [facility] [id number] [address] [place] [address] Jan, Dark brown-colored urine R82 .99 and Acute suppurative otitis media of right ear without spontaneous rupture of tympanic membrane, recurrence not specified H66.001 [place] [address] [address] Jan, Encounter for immunization Z23 [place] [address] [address] Dec, Crohn's disease of both small and large intestine with complication K50.819 and Eustachian tube dysfunction, right H69.81 [place] [address] [address] Dec, [place] [address] [address] Dec, Contusion of right knee, initial encount er S80.01XA [place] [address] [address] Dec, [place] [address] [address] Dec, Acute pain of right knee M25.561 [place] [address] [address] Dec, Iron deficiency anemia due to chronic bl ood loss D50.0 [place] [address] [address] Dec, Hyperlipidemia E78.5 ; Type 2 diabetes m ellitus without complication E11.9 ; Vitamin B12 deficiency E53.8 ; Essential hypertension I10 ; Obstructive sleep apnea on CPAP G47.33 and Periodic limb movement sleep disorder G47.61 [place] [address] [address] 22 Nov, 2016 Type 2 diabetes mellitus without complic ation E11.9 ; Vitamin B12 deficiency E53.8 ; Hyperlipidemia E78.5 ; Essential hypertension I10 ; Obstructive sleep apnea on CPAP G47.33 ; Periodic limb movement sleep disorder G47.61 ; Anxiety F41.9 ; Acquired hypothyroidism E03.9 and Chronic tension-type headache, intractable G44.221 [place] [address] [address] Nov, Crohn's disease of both small and large intestine with complication K50.819 [place] [address] [address] Nov, Vitamin B12 deficiency E53.8 [place] [address] [address] Oct, [place] [address] [address] Oct, Vitamin B12 deficiency E53.8 [place] [address] [address] Sep, [place] [address] [address] Sep, Vitamin B12 deficiency E53.8 [place] [address] [address] Aug, [place] [address] [address] Aug, Vitamin B12 deficiency E53.8 [place] [address] [address] Aug, [place] [address] [address] Jul, Elevated ALT measurement R74.0 [place] [address] [address] Jul, Hematuria R31.9 ; Acute right-sided thor acic back pain M54.6 ; Major depressive disorder, recurrent episode, moderate F33.1 and Elevated ALT measurement R74.0 [place] [address] [address] Jul, [place] [address] [address] Jul, Elevated ALT measurement R74.0 [place] [address] [address] Jul, Iron deficiency anemia due to chronic bl ood loss D50.0 [place] [address] [address] Jul, Type 2 diabetes mellitus without complic ation E11.9 ; Acquired hypothyroidism E03.9 ; Iron deficiency anemia due to chronic blood loss D50.0 ; Hyperlipidemia E78.5 and Essential hypertension I10 [place] [address] [address] 26 Jun, 2016 [place] [address] [address] 20 Jun, 2016 Vitamin B12 deficiency E53.8 [place] [address] [address] 16 Jun, 2016 Type 2 diabetes mellitus without complic ation E11.9 ; Acquired hypothyroidism E03.9 ; Iron deficiency anemia due to chronic blood loss D50.0 ; Hyperlipidemia E78.5 ; Essential hypertension I10 ; Chronic tension-type headache, intractable G44.221 ; Pulsatile tinnitus, bilateral H93.13 ; Obstructive sleep apnea on CPAP G47.33 and Major depressive disorder, recurrent episode, moderate F33.1 [place] [address] [address] 16 May, 2016 Vitamin B12 deficiency E53.8 [place] [address] [address] 08 May, 2016 [place] [address] [address] Apr, Vitamin B12 deficiency E53.8 [place] [address] [address] 05 Apr, 2016 [place] [address] [address] 28 Mar, 2016 Chronic tension-type headache, intractab le G44.221 and Major depressive disorder, recurrent episode, moderate F33.1 [place] [address] [address] 14 Mar, 2016 Vitamin B12 deficiency E53.8 [place] [address] [address] February, [place] [address] [address] February, Vitamin B12 deficiency E53.8 [place] [address] [address] February, [place] [address] [address] Jan, Dysuria R30.0 [place] [address] [address] 22 Jan, 2016 Type 2 diabetes mellitus without complic ation E11.9 and Essential hypertension I10 [place] [address] [address] 15 Jan, 2016 Chronic diarrhea K52.9 [place] [address] [address] 13 Jan, 2016 [place] [address] [address] 12 Jan, 2016 Chronic diarrhea K52.9 [place] [address] [place] [id number] [place] [address] Jan, [place] [address] [address] Jan, Dysuria R30.0 [place] [address] [address] 07 Jan, 2016 Vitamin B12 deficiency E53.8 [place] [address] [address] 07 Jan, 2016 Dysuria R30.0 and Iron deficiency anemia due to chronic blood loss D50.0 [place] [address] [address] 05 Jan, 2016 Dysuria R30.0 [place] [address] [address] Jan, [place] [address] [address] 15 Dec, 2015 [place] [address] [address] Dec, Iron deficiency anemia due to chronic bl ood loss D50.0 [place] [address] [address] 10 Dec, 2015 Dysuria R30.0 ; Fatigue R53.83 ; Hyperli pidemia E78.5 and Diarrhea R19.7 [place] [address] [address] Dec, [place] [address] [address] Dec, [place] [address] [address] 10 Nov, 2015 Vitamin B12 deficiency E53.8 [place] [address] [address] Oct, Vitamin B12 deficiency E53.8 [place] [address] [address] Oct, [facility] [address] [facility] [id number] [address] [place] [address] Oct, Headache R51 [place] [address] [id number] [place] [address] Oct, Essential hypertension I10 ; Type 2 diab etes mellitus without complication E11.9 ; Vitamin B12 deficiency E53.8 ; Acquired hypothyroidism E03.9 ; Iron deficiency anemia due to chronic blood loss D50.0 and Hyperlipidemia E78.5 [place] [address] [address] Sep, Essential hypertension I10 ; Vitamin B12 deficiency E53.8 ; Iron deficiency anemia due to chronic blood loss D50.0 ; Type 2 diabetes mellitus without complication E11.9 ; Hyperlipidemia E78.5 and Acquired hypothyroidism E03.9 [place] [address] [address] Sep, [place] [address] [address] Sep, [place] [address] [address] Jul, [place] [address] [address] Jun, [place] [address] [address] Jun, [place] [address] [address] Jun, Hyperlipidemia 272.4 ; Iron deficiency a nemia 280.9 ; Hypothyroidism 244.9 ; Diabetes mellitus without mention of complication, type II or unspecified type, not stated as uncontrolled 250.00 and Hypertension 401.9 [place] [address] [address] Jun, [place] [address] [address] Jun, [place] [address] [address] May, Hyperlipidemia 272.4 [facility] [address] [address] May, [facility] [address] [address] May, [facility] [address] [address] Apr, Diabetes mellitus without mention of com plication, type II or unspecified type, not stated as uncontrolled 250.00 ; Hypothyroidism 244.9 ; Hyperlipidemia 272.4 ; Pain in joint, lower leg 719.46 and RUQ pain 789.01 [facility] [address] [address] Mar, Sinusitis 473.9 [facility] [address] [address] Mar, [facility] [address] [address] Mar, [facility] [address] [address] Mar, Hematochezia 578.1 [facility] [address] [address] February, Sinusitis 473.9 [facility] [address] [address] February, [facility] [address] [address] Jan, [facility] [address] [address] Jan, [facility] [address] [address] Dec, [facility] [address] [address] Dec, [facility] [address] [address] Dec, [facility] [place] [facility] [address] [facility] [id number] [place] [address] Dec, [facility] [place] [facility] [address] [facility] [id number] [place] [address] Dec, [facility] [place] [facility] [address] [id number] [place] [address] Dec, [facility] [place] [facility] [address] [id number] [place] [address] Dec, [facility] [place] [facility] [address] [facility] [id number] [place] [address] Dec, [facility] [place] [facility] [address] [id number] [place] [address] Dec, [facility] [place] [facility] [address] [id number] [place] [address] Dec, [facility] [place] [facility] [address] [id number] [place] [address] Dec, [facility] [place] [facility] [address] [id number] [place] [address] Nov, [facility] [place] [facility] [address] [id number] [place] [address] Nov, [facility] [place] [facility] [address] [id number] [place] [address] Nov, [facility] [place] [facility] [address] [id number] [place] [address] Nov, [facility] [place] [facility] [address] [id number] [place] [address] Oct, [facility] [place] [facility] [address] [id number] [place] [address] Oct, [facility] [place] [facility] [address] [id number] [place] [address] Oct, [facility] [place] [facility] [address] [id number] [place] [address] Oct, [facility] [address] [id number] [place] [address] Oct, [facility] [address] [id number] [place] [address] Oct, [facility] [address] [id number] [place] [address] Sep, [facility] [address] [id number] [place] [address] Sep, [facility] [address] [id number] [place] [address] Sep, [facility] [address] [id number] [place] [address] Sep, [facility] [address] [id number] [place] [address] Sep, [facility] [address] [facility] [id number] [place] [address] Sep, [facility] [place] [facility] [address] [id number] [place] [address] Sep, [facility] [place] [facility] [address] [id number] [place] [address] Aug, [facility] [place] [facility] [address] [id number] [place] [address] Aug, [facility] [place] [facility] [address] [id number] [place] [address] Aug, [facility] [place] [facility] [address] [id number] [place] [address] Aug, [facility] [place] [facility] [address] [id number] [place] [address] Aug, [facility] [place] [facility] [id number] [place] [address] Aug, [facility] [place] [facility] [address] [id number] [place] [address] Aug, [facility] [place] [facility] [address] [id number] [place] [address] 18 Aug, 2014 [facility] [place] [facility] [address] [id number] [place] [address] Aug, [facility] [place] [facility] [address] [id number] [place] [address] Aug, [facility] [place] [facility] [address] [id number] [place] [address] Aug, [facility] [place] [facility] [address] [id number] [place] [address] Aug, [facility] [place] [facility] [address] [id number] [place] [address] Aug, [facility] [place] [facility] [address] [id number] [place] [address] Aug, [facility] [place] [facility] [address] [id number] [place] [address] Jul, [facility] [place] [facility] [address] [id number] [place] [address] Jul, [facility] [place] [facility] [address] [id number] [place] [address] Jul, [facility] [place] [facility] [address] [id number] [place] [address] Jul, [facility] [place] [facility] [address] [id number] [place] [address] 24 Jun, 2013 [facility] [place] [facility] [address] [id number] [place] [address] 24 Jun, 2013 [facility] [place] [facility] [address] [id number] [place] [address] 23 Jun, 2013 [facility] [place] [facility] [address] [id number] [place] [address] 23 Jun, 2013 [facility] [place] [facility] [address] [id number] [place] [address] 19 Jun, 2013 [facility] [place] [facility] [address] [id number] [place] [address] 19 Jun, 2013 [facility] [place] [facility] [address] [id number] [place] [address] 11 Jun, 2013 [facility] [place] [facility] [address] [id number] [place] [address] Jun, [facility] [place] [facility] [address] [facility] [id number] [place] [address] Jun, [facility] [place] [facility] [address] [facility] [id number] [place] [address] Jun, 2013 [facility] [place] [facility] [address] [facility] [id number] [place] [address] Jun, [facility] [place] [facility] [address] [id number] [place] [address] Jun, [facility] [place] [facility] [address] [facility] [id number] [place] [address] Jun, [facility] [place] [facility] [address] [id number] [place] [address] Jun, [facility] [place] [facility] [address] [id number] [place] [address] May, [facility] [place] [facility] [address] [id number] [place] [address] May, [facility] [place] [facility] [address] [id number] [place] [address] May, [facility] [place] [facility] [address] [id number] [place] [address] May, [facility] [place] [facility] [address] [id number] [place] [address] May, [facility] [place] [facility] [address] [id number] [place] [address] May, [facility] [place] [facility] [address] [id number] [place] [address] Apr, [facility] [place] [facility] [address] [facility] [id number] [place] [address] Apr, [facility] [place] [facility] [address] [id number] [place] [address] Apr, [facility] [place] [facility] [address] [id number] [place] [address] Apr, [facility] [place] [facility] [address] [facility] [id number] [place] [address] Apr, [facility] [place] [facility] [address] [facility] [id number] [place] [address] Apr, [facility] [place] [facility] [address] [id number] [place] [address] Apr, [facility] [place] [facility] [address] [facility] [id number] [place] [address] Apr, [facility] [place] [facility] [address] [facility] [id number] [place] [address] Apr, [facility] [place] [facility] [address] [id number] [place] [address] Apr, [facility] [place] [facility] [address] [id number] [place] [address] Apr, [facility] [place] [facility] [address] [id number] [place] [address] Mar, [facility] [place] [facility] [address] [facility] [id number] [place] [address] Mar, [facility] [place] [facility] [address] [id number] [place] [address] Mar, [facility] [place] [facility] [address] [id number] [place] [address] Mar, [facility] [place] [facility] [address] [id number] [place] [address] February, [facility] [place] [facility] [address] [facility] [id number] [place] [address] February, [facility] [place] [facility] [address] [id number] [place] [address] Jan, [facility] [place] [facility] [address] [id number] [place] [address] Jan, [facility] [address] [place] [id number] Jan, [facility] [place] [facility] [address] [id number] [place] [address] Jan, [facility] [place] [facility] [address] [id number] [place] [address] Jan, [facility] [place] [facility] [address] [facility] [id number] [place] [address] Jan, [facility] [place] [facility] [address] [id number] [place] [address] Jan, [facility] [place] [facility] [address] [facility] [id number] [place] [address] Jan, [facility] [place] [facility] [address] [id number] [place] [address] Jan, [facility] [place] [facility] [address] [id number] [place] [address] Jan, [facility] [place] [facility] [address] [id number] [place] [address] Jan, [facility] [place] [facility] [address] [id number] [place] [address] Jan, [facility] [place] [facility] [address] [id number] [place] [address] Jan, [facility] [place] [facility] [address] [id number] [place] [address] Jan, [facility] [place] [facility] [address] [id number] [place] [address] Jan, [facility] [place] [facility] [address] [id number] [place] [address] Jan, [facility] [place] [facility] [address] [id number] [place] [address] Jan, [facility] [place] [facility] [address] [id number] [place] [address] Dec, [facility] [place] [facility] [address] [id number] [place] [address] 18 Dec, 2013 [facility] [place] [facility] [address] [id number] [place] [address] Dec, [facility] [place] [facility] [address] [id number] [place] [address] Dec, [facility] [place] [facility] [address] [id number] [place] [address] Dec, [facility] [place] [facility] [address] [id number] [place] [address] Dec, [facility] [place] [facility] [address] [id number] [place] [address] Dec, [facility] [place] [facility] [address] [id number] [place] [address] Nov, [facility] [place] [facility] [address] [id number] [place] [address] Nov, [facility] [place] [facility] [address] [id number] [place] [address] Nov, [facility] [place] [facility] [address] [id number] [place] [address] Nov, [facility] [place] [facility] [address] [id number] [place] [address] Nov, [facility] [place] [facility] [address] [id number] [place] [address] Nov, [facility] [place] [facility] [address] [id number] [place] [address] Nov, [facility] [place] [facility] [address] [id number] [place] [address] Oct, [facility] [place] [facility] [address] [id number] [place] [address] Oct, [facility] [place] [facility] [address] [id number] [place] [address] Sep, [facility] [place] [facility] [address] [id number] [place] [address] Sep, [facility] [place] [facility] [address] [id number] [place] [address] Sep, [facility] [place] [facility] [id number] [place] [address] Sep, [facility] [id number] [place] [address] Sep, [facility] [id number] [place] [address] Sep, [facility] [id number] [place] [address] Sep, [facility] [id number] [place] [address] Sep, [facility] [id number] [place] [address] Sep, [facility] [id number] [place] [address] Sep, [facility] [id number] [place] [address] Aug, [facility] [id number] [place] [address] Aug, [facility] [id number] [place] [address] Aug, [facility] [id number] [place] [address] Aug, [facility] [id number] [place] [address] Aug, [facility] [id number] [place] [address] Jul, [facility] [id number] [place] [address] Jul, [facility] [id number] [place] [address] Jul, [facility] [id number] [place] [address] Jul, IMMUNIZATIONS No Known Immunizations SOCIAL HISTORY [...]
--- OUTSIDE RECORDS SUMMARY | 2020-03-16 11:49 | XMS REPORT ---
Author Author Swathi Benavides Organization [facility] Address [address] [place] [address] Care Team Providers Care Office Associate Name Role Phone WIL Benavides Unavailable PROBLEMS Type Condition ICD9-CM Code ESJ43-YZ Code Onset Dates Condition S tatus SNOMED Code Problem Sensorineural hearing loss of right ear H90.41 Active 46418422 Problem Obstructive sleep apnea on CPAP G47.33 Active 62100106 Problem Periodic limb movement sleep disorder G47.61 Active 848666703 Problem Iron deficiency anemia due to chronic blood loss D 50.0 Active 78341026 Problem MACHUCA (nonalcoholic steatohepatitis) K75.81 Active 728845811 Problem Vitamin B12 deficiency E53.8 Active 502393447 Problem Chronic diarrhea K52.9 Active 236 661592 Problem Vitamin D deficiency E55.9 Active 56212261 Problem BMI 50.0-59.9, adult Z68.43 Active 481875091 Problem Fatty liver K76.0 Active 72631153 7 Problem Anxiety F41.9 Active 24489751 Problem Major depressive disorder, recurrent episode, moderate F33.1 Active 101855591 Problem Chronic tension-type headache, intractable G44.221 Active 883136064 Problem Right upper quadrant pain R10.11 Acti ve 26335665 Problem Frequent falls R29.6 Active 92173 2001 Problem Crohn's disease of both small and large intestin e with complication K50.819 Active 67698988 Problem Type 2 diabetes mellitus with other specified complication E11.69 Active 844157406432 Problem Hyperlipidemia, unspecified E78.5 Ac tive 93416242 Problem Mixed stress and urge urinary incontinence N39.46 Active 563341292 Problem Sinusitis chronic, frontal J32.1 Act katlyn 08905139 Problem Seasonal allergies J30.2 Active 4 80927103 Problem Other chronic pain G89.29 Active 8 3641339 Problem Hyperlipidemia E78.5 Active 45229 004 Problem Bilateral primary osteoarthritis of knee M17.0 Active 300553776 Problem Essential hypertension I10 Active 81958748 Problem Acquired hypothyroidism E03.9 Active 214452737 Problem History of hysterectomy for benign disease Z90.710 Active 321790679 Problem Morbid (severe) obesity due to excess calories E66 .01 Active 762646685 Problem Other cirrhosis of liver K74.69 Activ e 44064512 Problem Portal hypertension K76.6 Active 29770508 ALLERGIES No Information ENCOUNTERS Encounter Location Date Diagnosis [place] [address] [address] Oct, [place] [address] [address] Oct, Encounter for Medicare annual wellness e [...] E78.5 and Other cirrhosis of liver K74.69 [place] [address] [address] Oct, [place] [address] [address] Sep, Major depressive disorder, recurrent epi sode, moderate F33.1 ; Vitamin B12 deficiency E53.8 ; BMI 50.0-59.9, adult Z68.43 and Essential hypertension I10 [place] [address] [address] Sep, Breast pain, right N64.[address] [place] [address] Sep, Breast pain, right N64.[address] [place] [address] Sep, Breast pain, right N64.[address] [place] [address] Sep, Breast pain, right N64.4 [facility] [address] [place] [id number] [place] [address] Aug, [facility] [place] [id number] [place] [address] Aug, Major depressive disorder, recurrent epi sode, moderate F33.1 ; BMI 50.0-59.9, adult Z68.43 ; Type 2 diabetes mellitus without complication E11.9 ; Breast pain, right N64.4 and Encounter for screening mammogram for breast cancer Z12.31 [facility] [address] [place] [address] Jun, Pneumonia of right middle lo be due to infectious organism J18.1 and Cough R05 [facility] [address] [place] [address] Jun, Acute nasopharyngitis J00 [place] [address] [place] [id number] [place] [address] May, Iron deficiency anemia due to chronic [...] Major depressive disorder, recurrent episode, moderate F33.1 [facility] [address] [place] [address] [id number] [place] [address] May, Hyperlipidemia, unspecified E78.5 ; Othe r cirrhosis of liver K74.69 and Iron deficiency anemia due to chronic blood loss D50.0 [facility] [id number] [place] [address] February, [facility] [address] [place] [address] February, Acute recurrent pansinusitis J01.41 [facility] [address] [place] [address] February, Acute maxillary sinusitis, r ecurrence not specified J01.00 [place] [address] [address] Jan, Bilateral primary osteoarthritis of knee M17.0 ; Morbid obesity E66.01 ; Viral syndrome B34.9 and Atrial dilatation, left I51.7 [place] [address] [address] Jan, [address] [address] Dec, Trigeminy R00.[address] [address] Dec, Essential hypertension I10 ; Morbid obes ity E66.01 ; Low back pain M54.5 ; Other chronic pain G89.29 and Pain in right knee M25.561 [place] [address] [address] Nov, [address] [address] Oct, Palpitations R00.[address] [address] Oct, Encounter for Medicare annual wellness e [...] small and large intestine with complication K50.819 [place] [address] [address] Oct, [place] [address] [facility] [place] [address] Oct, Crohn's disease of both small and large intestine with complication K50.819 [facility] [address] [facility] [id number] [address] Jul, Sinusitis chronic, frontal J 32.1 ; Acute mucoid otitis media of both ears H65.113 ; Seasonal allergies J30.2 and BMI 50.0-59.9, adult Z68.43 [place] [address] [address] Jul, Essential hypertension I10 ; Type 2 diab etes mellitus with other specified complication E11.69 ; BMI 50.0-59.9, adult Z68.43 ; Mixed stress and urge urinary incontinence N39.46 and Mid back pain on right side M54.9 [place] [address] [address] Jun, Iron deficiency anemia due to chronic bl ood loss D50.0 ; Hyperlipidemia E78.5 ; Type 2 diabetes mellitus with other specified complication E11.69 ; Vitamin B12 deficiency E53.8 and Vitamin D deficiency E55.9 [facility] [address] [facility] [id number] [address] [address] 14 Jun, 2018 Cough R05 and BMI 50.0-59.9, adult Z68.43 [place] [address] [address] Jun, [place] [address] [address] May, Iron deficiency anemia due to chronic bl ood loss D50.0 ; Chronic diarrhea K52.9 ; Essential hypertension I10 ; Type 2 diabetes mellitus with other specified complication E11.69 ; Vitamin D deficiency E55.9 ; Colon stricture K56.699 ; Vitamin B12 deficiency E53.8 ; Hyperlipidemia E78.5 and BMI 50.0-59.9, adult Z68.43 [place] [address] [place] [id number] [place] [address] May, [address] [address] Apr, Nonhealing wound of heel S91.309A and Christopher dy mass index (BMI) of 50-59.9 in adult Z68.[address] [address] Mar, [place] [address] [address] Mar, BMI 50.0-59.9, adult Z68.43 ; Flank pain R10.9 and Weight loss counseling, encounter for Z71.[address] [address] February, [address] [address] Jan, [place] [address] [address] Jan, [facility] [address] [facility] [id number] [place] [address] Jan, Diarrhea due to staphylococc us A04.8 and Diarrhea, unspecified type R19.[address] [address] Jan, Acquired hypothyroidism E03.9 ; Type 2 d iabetes mellitus with other specified complication E11.69 ; Hyperlipidemia E78.5 ; Essential hypertension I10 ; Major depressive disorder, recurrent episode, moderate F33.1 and Vitamin D deficiency E55.[address] [address] Jan, Type 2 diabetes mellitus with other spec ified complication E11.69 ; Hyperlipidemia E78.5 ; Essential hypertension I10 ; Acquired hypothyroidism E03.9 ; Major depressive disorder, recurrent episode, moderate F33.1 ; Vitamin D deficiency E55.9 ; Sinus congestion R09.81 and BMI 50.0-59.9, adult Z68.43 [place] [address] [address] Dec, [place] [address] [address] Sep, Encounter for immunization Z23 [place] [address] [address] Sep, [place] [address] [address] Sep, Vitamin B12 deficiency E53.8 [place] [address] [address] Aug, [place] [address] [address] Aug, BMI 60.0-69.9, adult Z68.44 and Acute no n-recurrent maxillary sinusitis J01.00 [place] [address] [address] 14 Aug, 2017 [place] [address] [address] Aug, Medicare annual wellness visit, initial Z00.00 ; Screening for breast cancer Z12.31 ; BMI 40.0-44.9, adult Z68.41 and Acquired hypothyroidism E03.9 [place] [address] [address] Jul, Actinic keratosis L57.0 [place] [address] [address] Jul, Actinic keratosis L57.0 [place] [address] [address] Jul, Type 2 diabetes mellitus with other spec ified complication E11.69 ; Actinic keratosis L57.0 and Hypothyroidism, unspecified E03.9 [place] [address] [address] Jul, [place] [address] [address] Jul, [place] [address] [address] Jul, Vitamin B12 deficiency E53.8 [place] [address] [address] Jun, Acquired hypothyroidism E03.9 and Chroni c tension-type headache, intractable G44.221 [place] [address] [address] Jun, Back muscle spasm M62.830 and BMI 50.0-5 9.9, adult Z68.43 [place] [address] [address] Jun, Vitamin B12 deficiency E53.8 [place] [address] [address] Jun, Crohn's disease of both small and large intestine with complication K50.819 [place] [address] [address] Jun, Crohn's disease of both small and large intestine with complication K50.819 [place] [address] [address] May, Hyperlipidemia E78.5 ; Anxiety F41.9 and Essential hypertension I10 [place] [address] [address] May, [address] [address] May, Encounter for immunization Z23 and Vitam in B12 deficiency E53.8 [place] [address] [address] May, [place] [address] [address] Apr, [place] [address] [address] Apr, [place] [address] [address] Apr, Crohn's disease of both small and large intestine with complication K50.819 [place] [address] [address] Apr, Vitamin B12 deficiency E53.8 [place] [address] [address] Apr, Crohn's disease of both small and large intestine with complication K50.819 and Acute pain of right shoulder M25.511 [place] [address] [address] Mar, Type 2 diabetes mellitus without complic ation E11.9 ; Frequent falls R29.6 and Other chest pain R07.89 [place] [address] [address] Mar, [place] [address] [address] Mar, [place] [address] [address] Mar, Type 2 diabetes mellitus without complic ation E11.9 and Blurry vision, bilateral H53.8 [place] [address] [address] Mar, Vitamin B12 deficiency E53.8 [place] [address] [address] Mar, Crohn's disease of both small and large intestine with complication K50.819 [place] [address] [address] February, Vitamin B12 deficiency E53.8 [place] [address] [address] Jan, Crohn's disease of both small and large intestine with complication K50.819 [place] [address] [address] Jan, Crohn's disease of both small and large intestine with complication K50.819 [facility] [address] [facility] [id number] [address] [place] [address] Jan, Dark brown-colored urine R82 .99 and Acute suppurative otitis media of right ear without spontaneous rupture of tympanic membrane, recurrence not specified H66.001 [place] [address] [address] Jan, Encounter for immunization Z23 [place] [address] [address] Dec, Crohn's disease of both small and large intestine with complication K50.819 and Eustachian tube dysfunction, right H69.81 [place] [address] [address] Dec, [place] [address] [address] Dec, Contusion of right knee, initial encount er S80.01XA [place] [address] [address] Dec, [place] [address] [address] Dec, Acute pain of right knee M25.561 [place] [address] [address] Dec, Iron deficiency anemia due to chronic bl ood loss D50.0 [place] [address] [address] Dec, Hyperlipidemia E78.5 ; Type 2 diabetes m ellitus without complication E11.9 ; Vitamin B12 deficiency E53.8 ; Essential hypertension I10 ; Obstructive sleep apnea on CPAP G47.33 and Periodic limb movement sleep disorder G47.61 [place] [address] [address] 22 Feb, 2017 Type 2 diabetes mellitus without complic ation E11.9 ; Vitamin B12 deficiency E53.8 ; Hyperlipidemia E78.5 ; Essential hypertension I10 ; Obstructive sleep apnea on CPAP G47.33 ; Periodic limb movement sleep disorder G47.61 ; Anxiety F41.9 ; Acquired hypothyroidism E03.9 and Chronic tension-type headache, intractable G44.221 [place] [address] [address] 10 Nov, 2016 Crohn's disease of both small and large intestine with complication K50.819 [place] [address] [address] 10 Nov, 2016 Vitamin B12 deficiency E53.8 [place] [address] [address] Oct, [place] [address] [address] Oct, Vitamin B12 deficiency E53.8 [place] [address] [address] Sep, [place] [address] [address] Sep, Vitamin B12 deficiency E53.8 [place] [address] [address] Aug, [place] [address] [address] Aug, Vitamin B12 deficiency E53.8 [place] [address] [address] Aug, [place] [address] [address] Jul, Elevated ALT measurement R74.0 [place] [address] [address] Jul, Hematuria R31.9 ; Acute right-sided thor acic back pain M54.6 ; Major depressive disorder, recurrent episode, moderate F33.1 and Elevated ALT measurement R74.0 [place] [address] [address] 21 Jul, 2016 [place] [address] [address] 19 Jul, 2016 Elevated ALT measurement R74.0 [place] [address] [address] 14 Jul, 2016 Iron deficiency anemia due to chronic bl ood loss D50.0 [place] [address] [address] 14 Jul, 2016 Type 2 diabetes mellitus without complic ation E11.9 ; Acquired hypothyroidism E03.9 ; Iron deficiency anemia due to chronic blood loss D50.0 ; Hyperlipidemia E78.5 and Essential hypertension I10 [place] [address] [address] 26 Jun, [address] [address] Jun, Vitamin B12 deficiency E53.8 [place] [address] [address] 16 Jun, 2016 Type 2 diabetes mellitus without complic ation E11.9 ; Acquired hypothyroidism E03.9 ; Iron deficiency anemia due to chronic blood loss D50.0 ; Hyperlipidemia E78.5 ; Essential hypertension I10 ; Chronic tension-type headache, intractable G44.221 ; Pulsatile tinnitus, bilateral H93.13 ; Obstructive sleep apnea on CPAP G47.33 and Major depressive disorder, recurrent episode, moderate F33.1 [place] [address] [address] May, Vitamin B12 deficiency E53.8 [place] [address] [address] May, [address] [address] Apr, Vitamin B12 deficiency E53.8 [place] [address] [address] 05 Apr, 2016 [place] [address] [address] 28 Mar, 2016 Chronic tension-type headache, intractab le G44.221 and Major depressive disorder, recurrent episode, moderate F33.1 [place] [address] [address] 14 Mar, 2016 Vitamin B12 deficiency E53.8 [place] [address] [address] February, [place] [address] [address] February, Vitamin B12 deficiency E53.8 [place] [address] [address] February, [place] [address] [address] 27 Jan, 2016 Dysuria R30.0 [place] [address] [address] 22 Jan, 2016 Type 2 diabetes mellitus without complic ation E11.9 and Essential hypertension I10 [place] [address] [address] 15 Jan, 2016 Chronic diarrhea K52.9 [place] [address] [address] 13 Jan, 2016 [place] [address] [address] 12 Jan, 2016 Chronic diarrhea K52.9 [place] [address] [address] Jan, [place] [address] [address] 12 Jan, 2016 Dysuria R30.0 [place] [address] [address] 07 Jan, 2016 Vitamin B12 deficiency E53.8 [place] [address] [address] Jan, Dysuria R30.0 and Iron deficiency anemia due to chronic blood loss D50.0 [place] [address] [address] 05 Jan, 2016 Dysuria R30.0 [place] [address] [address] 04 Jan, 2016 [place] [address] [address] Dec, [place] [address] [address] Dec, Iron deficiency anemia due to chronic bl ood loss D50.0 [place] [address] [address] Dec, Dysuria R30.0 ; Fatigue R53.83 ; Hyperli pidemia E78.5 and Diarrhea R19.7 [place] [address] [address] Dec, [place] [address] [address] Dec, [place] [address] [address] Nov, Vitamin B12 deficiency E53.8 [place] [address] [address] Oct, Vitamin B12 deficiency E53.8 [place] [address] [address] Oct, [facility] [address] [facility] [id number] [address] [place] [address] Oct, Headache R51 [place] [address] [address] 07 Oct, 2015 Essential hypertension I10 ; Type 2 diab etes mellitus without complication E11.9 ; Vitamin B12 deficiency E53.8 ; Acquired hypothyroidism E03.9 ; Iron deficiency anemia due to chronic blood loss D50.0 and Hyperlipidemia E78.5 [place] [address] [address] Sep, Essential hypertension I10 ; Vitamin B12 deficiency E53.8 ; Iron deficiency anemia due to chronic blood loss D50.0 ; Type 2 diabetes mellitus without complication E11.9 ; Hyperlipidemia E78.5 and Acquired hypothyroidism E03.9 [place] [address] [address] Sep, [place] [address] [address] Sep, [place] [address] [address] Jul, [place] [address] [address] Jun, [place] [address] [address] Jun, [place] [address] [address] Jun, Hyperlipidemia 272.4 ; Iron deficiency a nemia 280.9 ; Hypothyroidism 244.9 ; Diabetes mellitus without mention of complication, type II or unspecified type, not stated as uncontrolled 250.00 and Hypertension 401.9 [place] [address] [address] Jun, [place] [address] [address] Jun, [place] [address] [address] May, Hyperlipidemia 272.4 [place] [address] [address] May, [place] [address] [address] May, [place] [address] [address] Apr, Diabetes mellitus without mention of com plication, type II or unspecified type, not stated as uncontrolled 250.00 ; Hypothyroidism 244.9 ; Hyperlipidemia 272.4 ; Pain in joint, lower leg 719.46 and RUQ pain 789.01 [facility] [address] [address] 15 Mar, 2015 Sinusitis 473.9 [facility] [address] [address] Mar, [facility] [address] [address] Mar, [facility] [address] [address] Mar, Hematochezia 578.1 [facility] [address] [address] February, Sinusitis 473.9 [facility] [address] [address] February, [facility] [address] [address] Jan, [facility] [place] [address] [address] Jan, [facility] [address] [address] Dec, [facility] [address] [address] Dec, [facility] [address] [address] Dec, [facility] [place] [address] [address] Dec, [facility] [address] [address] Dec, [facility] [address] [address] Dec, [facility] [address] [address] Dec, [facility] [address] [id number] [place] [address] Dec, [facility] [address] [id number] [place] [address] Dec, [facility] [address] [id number] [place] [address] Dec, [facility] [address] [id number] [place] [address] Dec, [facility] [address] [id number] [place] [address] Nov, [facility] [address] [id number] [place] [address] Nov, [facility] [address] [id number] [place] [address] Nov, [facility] [address] [id number] [place] [address] Nov, [facility] [address] [id number] [place] [address] Oct, [facility] [address] [id number] [place] [address] Oct, [facility] [address] [id number] [place] [address] Oct, [facility] [address] [id number] [place] [address] Oct, [facility] [address] [id number] [place] [address] Oct, [facility] [address] [id number] [place] [address] Oct, [facility] [address] [id number] [place] [address] Sep, [facility] [address] [id number] [place] [address] Sep, [facility] [address] [id number] [place] [address] Sep, [facility] [address] [id number] [place] [address] Sep, [facility] [address] [id number] [place] [address] Sep, [facility] [address] [id number] [place] [address] Sep, [facility] [address] [id number] [place] [address] Sep, [facility] [address] [id number] [place] [address] Aug, [facility] [address] [id number] [place] [address] Aug, [facility] [address] [id number] [place] [address] Aug, [facility] [address] [id number] [place] [address] Aug, [facility] [address] [id number] [place] [address] Aug, [facility] [address] [id number] [place] [address] Aug, [facility] [address] [id number] [place] [address] Aug, [facility] [address] [id number] [place] [address] Aug, [facility] [address] [id number] [place] [address] Aug, [facility] [id number] [place] [address] Aug, [facility] [address] [id number] [place] [address] Aug, [facility] [place] [facility] [address] [id number] [place] [address] Aug, [facility] [place] [facility] [address] [id number] [place] [address] Aug, [facility] [place] [facility] [address] [id number] [place] [address] Aug, [facility] [place] [facility] [address] [id number] [place] [address] Jul, [facility] [place] [facility] [address] [id number] [place] [address] Jul, [facility] [place] [facility] [address] [facility] [id number] [place] [address] Jul, [facility] [place] [facility] [address] [id number] [place] [address] Jul, [facility] [place] [facility] [address] [id number] [place] [address] 24 Jun, 2013 [facility] [place] [facility] [address] [id number] [place] [address] 24 Jun, 2013 [facility] [place] [facility] [address] [id number] [place] [address] 23 Sep, 2013 [facility] [place] [facility] [address] [id number] [place] [address] 23 Jun, 2013 [facility] [place] [facility] [address] [id number] [place] [address] 19 Sep, 2013 [facility] [place] [facility] [address] [id number] [place] [address] 19 Jun, 2013 [facility] [place] [facility] [address] [id number] [place] [address] 11 Sep, 2013 [facility] [place] [facility] [address] [id number] [place] [address] 11 Sep, 2013 [facility] [place] [facility] [address] [id number] [place] [address] 11 Sep, 2013 [facility] [place] [facility] [address] [id number] [place] [address] 11 Jun, 2013 [facility] [place] [facility] [address] [id number] [place] [address] 10 Jun, 2014 [facility] [place] [facility] [address] [id number] [place] [address] Jun, [facility] [place] [facility] [address] [facility] [id number] [facility] [place] [address] Jun, [facility] [place] [facility] [address] [id number] [facility] [place] [address] Jun, [facility] [place] [facility] [address] [facility] [id number] [facility] [place] [address] May, [facility] [place] [facility] [address] [facility] [id number] [place] [address] May, [facility] [place] [facility] [address] [id number] [place] [address] May, [facility] [place] [facility] [address] [id number] [place] [address] May, [facility] [place] [facility] [address] [id number] [place] [address] May, [facility] [place] [facility] [address] [facility] [id number] [facility] [place] [address] May, [facility] [place] [facility] [address] [id number] [place] [address] Apr, [facility] [place] [facility] [address] [id number] [place] [address] Apr, [facility] [place] [facility] [address] [id number] [facility] [place] [address] Apr, [facility] [place] [facility] [address] [facility] [id number] [facility] [place] [address] Apr, [facility] [place] [facility] [address] [id number] [facility] [place] [address] Apr, [facility] [place] [facility] [address] [facility] [id number] [facility] [place] [address] Apr, [facility] [place] [facility] [address] [id number] [place] [address] Apr, [facility] [place] [facility] [address] [id number] [place] [address] Apr, [facility] [place] [facility] [address] [id number] [place] [address] Apr, [facility] [place] [facility] [address] [facility] [id number] [place] [address] Apr, [facility] [place] [facility] [address] [id number] [place] [address] Apr, [facility] [place] [facility] [address] [facility] [id number] [place] [address] Mar, [facility] [place] [facility] [address] [facility] [id number] [place] [address] Mar, [facility] [place] [facility] [address] [id number] [place] [address] Mar, [facility] [place] [facility] [address] [id number] [place] [address] Mar, [facility] [place] [facility] [address] [id number] [place] [address] February, [facility] [place] [facility] [address] [id number] [place] [address] February, [facility] [place] [facility] [address] [id number] [place] [address] Jan, [facility] [place] [facility] [address] [id number] [place] [address] Jan, [facility] [address] [place] [id number] Jan, [facility] [place] [facility] [address] [id number] [place] [address] Jan, [facility] [place] [facility] [address] [id number] [place] [address] Jan, [facility] [place] [facility] [address] [id number] [place] [address] Jan, [facility] [place] [facility] [address] [id number] [place] [address] Jan, [facility] [place] [facility] [address] [facility] [id number] [place] [address] Jan, [facility] [place] [facility] [address] [id number] [place] [address] Jan, [facility] [place] [facility] [address] [id number] [place] [address] Jan, [facility] [place] [facility] [address] [id number] [place] [address] Jan, [facility] [place] [facility] [address] [id number] [place] [address] Jan, [facility] [place] [facility] [address] [id number] [place] [address] Jan, [facility] [place] [facility] [address] [id number] [place] [address] Jan, [facility] [place] [facility] [address] [id number] [place] [address] Jan, [facility] [place] [facility] [address] [id number] [place] [address] Jan, [facility] [place] [facility] [address] [id number] [place] [address] Jan, [facility] [place] [facility] [address] [id number] [place] [address] Dec, [facility] [place] [facility] [address] [id number] [place] [address] Dec, [facility] [place] [facility] [address] [id number] [place] [address] Dec, [facility] [place] [facility] [address] [facility] [id number] [place] [address] Dec, [facility] [place] [facility] [address] [id number] [place] [address] 05 Dec, 2013 [facility] [place] [facility] [address] [id number] [place] [address] 05 Dec, 2013 [facility] [place] [facility] [address] [id number] [place] [address] Dec, [facility] [place] [facility] [address] [id number] [place] [address] Nov, [facility] [place] [facility] [address] [id number] [place] [address] Nov, [facility] [place] [facility] [address] [id number] [place] [address] Nov, [facility] [place] [facility] [address] [id number] [place] [address] Nov, [facility] [place] [facility] [address] [id number] [place] [address] Nov, [facility] [place] [facility] [address] [id number] [place] [address] Nov, [facility] [place] [facility] [address] [id number] [place] [address] Nov, [facility] [place] [facility] [address] [id number] [place] [address] Oct, [facility] [place] [facility] [address] [id number] [place] [address] Oct, [facility] [place] [facility] [address] [id number] [place] [address] Sep, [facility] [place] [facility] [address] [id number] [place] [address] Sep, [facility] [place] [facility] [address] [id number] [place] [address] Sep, [facility] [place] [facility] [address] [id number] [place] [address] Sep, [facility] [place] [facility] [address] [id number] [place] [address] Sep, [facility] [place] [facility] [address] [id number] [place] [address] Sep, [facility] [place] [facility] [address] [id number] [place] [address] Sep, [facility] [place] [facility] [id number] [place] [address] Sep, [facility] [id number] [place] [address] Sep, [facility] [id number] [place] [address] Sep, [facility] [id number] [place] [address] Aug, [facility] [address] [address] Aug, [facility] [address] [address] Aug, [facility] [place] [address] [address] Aug, [facility] [place] [address] [address] Aug, [facility] [place] [id number] [place] [address] Jul, [facility] [id number] [place] [address] Jul, [facility] [address] [address] Jul, [facility] [id number] [place] [address] Jul, IMMUNIZATIONS No Known Immunizations SOCIAL HISTORY Never Assessed REASON FOR VISIT PLAN OF CARE VITAL SIGNS Height 62 in 2014-04-09 Weight 287.2 lbs 2014-04-09 Temperature 97.6 degrees Fahrenheit 2014-04-09 Heart Rate 82 bpm 2014-04-09 Respiratory Rate 20 2014-04-09 Blood pressure systolic 124 mmHg 2014-04-09 Blood pressure diastolic 70 mmHg 2014-04-09 MEDICATIONS Unknown Medications RESULTS No Results PROCEDURES [...]
--- OUTSIDE RECORDS SUMMARY | 2020-03-16 11:49 | XMS REPORT ---
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 Designer Name Role Phone WIL Benavides Unavailable PROBLEMS Type Condition ICD9-CM Code YCF41-MY Code Onset Dates Condition S tatus SNOMED Code Problem Sensorineural hearing loss of right ear H90.41 Active 97587818 Problem Obstructive sleep apnea on CPAP G47.33 Active 72797246 Problem Periodic limb movement sleep disorder G47.61 Active 913295629 Problem Iron deficiency anemia due to chronic blood loss D 50.0 Active 75757150 Problem MACHUCA (nonalcoholic steatohepatitis) K75.81 Active 348637183 Problem Vitamin B12 deficiency E53.8 Active 479932346 Problem Chronic diarrhea K52.9 Active 236 030346 Problem Vitamin D deficiency E55.9 Active 95176351 Problem BMI 50.0-59.9, adult Z68.43 Active 908237208 Problem Fatty liver K76.0 Active 00629532 7 Problem Anxiety F41.9 Active 87535744 Problem Major depressive disorder, recurrent episode, moderate F33.1 Active 332336720 Problem Chronic tension-type headache, intractable G44.221 Active 219976073 Problem Right upper quadrant pain R10.11 Acti ve 04422933 Problem Frequent falls R29.6 Active 39374 2001 Problem Crohn's disease of both small and large intestin e with complication K50.819 Active 14636603 Problem Type 2 diabetes mellitus with other specified complication E11.69 Active 567653622256 Problem Hyperlipidemia, unspecified E78.5 Ac tive 42617354 Problem Mixed stress and urge urinary incontinence N39.46 Active 664821641 Problem Sinusitis chronic, frontal J32.1 Act katlyn 32669348 Problem Seasonal allergies J30.2 Active 4 92443427 Problem Other chronic pain G89.29 Active 8 3972169 Problem Hyperlipidemia E78.5 Active 53708 004 Problem Bilateral primary osteoarthritis of knee M17.0 Active 287166952 Problem Essential hypertension I10 Active 32273033 Problem Acquired hypothyroidism E03.9 Active 578605376 Problem History of hysterectomy for benign disease Z90.710 Active 527651591 Problem Morbid (severe) obesity due to excess calories E66 .01 Active 352660671 Problem Other cirrhosis of liver K74.69 Activ e 56477532 Problem Portal hypertension K76.6 Active 08371460 ALLERGIES No Information ENCOUNTERS Encounter Location Date Diagnosis [place] [address] [address] Oct, [place] [address] [address] Oct, [place] [address] [address] Oct, [place] [address] [address] Sep, Major depressive disorder, recurrent epi sode, moderate F33.1 ; Vitamin B12 deficiency E53.8 ; BMI 50.0-59.9, adult Z68.43 and Essential hypertension I10 [place] [address] [address] Sep, Breast pain, right N64.[address] [place] [address] Sep, Breast pain, right N64.[address] [place] [address] Sep, Breast pain, right N64.[address] [place] [address] Sep, Breast pain, right N64.4 [place] [address] [address] Aug, [place] [address] [address] Aug, Major depressive disorder, recurrent epi sode, moderate F33.1 ; BMI 50.0-59.9, adult Z68.43 ; Type 2 diabetes mellitus without complication E11.9 ; Breast pain, right N64.4 and Encounter for screening mammogram for breast cancer Z12.31 [facility] [address] [place] [address] 13 Jun, 2019 Pneumonia of right middle lo be due to infectious organism J18.1 and Cough R05 [address] [place] [address] 09 Jun, 2019 Acute nasopharyngitis J00 [place] [id number] [address] May, Iron deficiency anemia due to chronic [...] Major depressive disorder, recurrent episode, moderate F33.1 [place] [address] [address] May, Hyperlipidemia, unspecified E78.5 ; Othe r cirrhosis of liver K74.69 and Iron deficiency anemia due to chronic blood loss D50.0 [place] [address] [place] [id number] [place] [address] February, [facility] [address] [place] [address] February, Acute recurrent pansinusitis J01.[address] [place] [address] February, Acute maxillary sinusitis, r ecurrence not specified J01.00 [place] [address] [address] Jan, Bilateral primary osteoarthritis of knee M17.0 ; Morbid obesity E66.01 ; Viral syndrome B34.9 and Atrial dilatation, left I51.7 [place] [address] [place] [id number] [place] [address] Jan, [place] [address] [address] Dec, Trigeminy R00.8 [place] [address] [address] Dec, Essential hypertension I10 ; Morbid obes ity E66.01 ; Low back pain M54.5 ; Other chronic pain G89.29 and Pain in right knee M25.561 [place] [address] [address] Nov, [place] [address] [address] Oct, Palpitations R00.2 [place] [address] [address] Oct, Encounter for Medicare annual wellness e [...] small and large intestine with complication K50.819 [facility] [address] [place] [id number] [place] [address] Oct, [place] [address] [address] Oct, Crohn's disease of both small and large intestine with complication K50.819 [facility] [address] [facility] [id number] [address] [place] [address] Jul, Sinusitis chronic, frontal J 32.1 ; Acute mucoid otitis media of both ears H65.113 ; Seasonal allergies J30.2 and BMI 50.0-59.9, adult Z68.43 [facility] [address] [address] Jul, Essential hypertension I10 ; Type 2 diab etes mellitus with other specified complication E11.69 ; BMI 50.0-59.9, adult Z68.43 ; Mixed stress and urge urinary incontinence N39.46 and Mid back pain on right side M54.9 [place] [address] [address] Jun, Iron deficiency anemia due to chronic bl ood loss D50.0 ; Hyperlipidemia E78.5 ; Type 2 diabetes mellitus with other specified complication E11.69 ; Vitamin B12 deficiency E53.8 and Vitamin D deficiency E55.9 [facility] [address] [facility] [id number] [address] [place] [address] Jun, Cough R05 and BMI 50.0-59.9, adult Z68.43 [place] [address] [address] Jun, [place] [address] [address] May, Iron deficiency anemia due to chronic bl ood loss D50.0 ; Chronic diarrhea K52.9 ; Essential hypertension I10 ; Type 2 diabetes mellitus with other specified complication E11.69 ; Vitamin D deficiency E55.9 ; Colon stricture K56.699 ; Vitamin B12 deficiency E53.8 ; Hyperlipidemia E78.5 and BMI 50.0-59.9, adult Z68.43 [place] [address] [address] May, [address] [address] Apr, Nonhealing wound of heel S91.309A and Christopher dy mass index (BMI) of 50-59.9 in adult Z68.43 [place] [address] [address] Mar, [facility] [address] [facility] [place] [address] Mar, BMI 50.0-59.9, adult Z68.43 ; Flank pain R10.9 and Weight loss counseling, encounter for Z71.3 [place] [address] [facility] [place] [address] February, [place] [address] [address] Jan, [place] [address] [place] [id number] [place] [address] Jan, [facility] [address] [facility] [id number] [address] [place] [address] Jan, Diarrhea due to staphylococc us A04.8 and Diarrhea, unspecified type R19.7 [place] [address] [place] [id number] [place] [address] Jan, Acquired hypothyroidism E03.9 ; Type 2 d iabetes mellitus with other specified complication E11.69 ; Hyperlipidemia E78.5 ; Essential hypertension I10 ; Major depressive disorder, recurrent episode, moderate F33.1 and Vitamin D deficiency E55.9 [place] [address] [place] [id number] [place] [address] Jan, Type 2 diabetes mellitus with other spec ified complication E11.69 ; Hyperlipidemia E78.5 ; Essential hypertension I10 ; Acquired hypothyroidism E03.9 ; Major depressive disorder, recurrent episode, moderate F33.1 ; Vitamin D deficiency E55.9 ; Sinus congestion R09.81 and BMI 50.0-59.9, adult Z68.43 [place] [address] [place] [id number] [place] [address] Dec, [address] [address] Sep, Encounter for immunization Z23 [place] [address] [place] [id number] [place] [address] Sep, [place] [address] [address] Sep, Vitamin B12 deficiency E53.8 [place] [address] [address] Aug, [place] [address] [address] Aug, BMI 60.0-69.9, adult Z68.44 and Acute no n-recurrent maxillary sinusitis J01.00 [place] [address] [address] Aug, [place] [address] [address] Aug, Medicare annual wellness visit, initial Z00.00 ; Screening for breast cancer Z12.31 ; BMI 40.0-44.9, adult Z68.41 and Acquired hypothyroidism E03.9 [place] [address] [address] Jul, Actinic keratosis L57.0 [place] [address] [address] Jul, Actinic keratosis L57.0 [place] [address] [address] Jul, Type 2 diabetes mellitus with other spec ified complication E11.69 ; Actinic keratosis L57.0 and Hypothyroidism, unspecified E03.9 [place] [address] [address] Jul, [place] [address] [address] Jul, [place] [address] [address] Jul, Vitamin B12 deficiency E53.8 [place] [address] [address] 28 Jun, 2017 Acquired hypothyroidism E03.9 and Chroni c tension-type headache, intractable G44.221 [place] [address] [address] Jun, Back muscle spasm M62.830 and BMI 50.0-5 9.9, adult Z68.43 [place] [address] [address] Jun, Vitamin B12 deficiency E53.8 [place] [address] [address] Jun, Crohn's disease of both small and large intestine with complication K50.819 [place] [address] [address] Jun, Crohn's disease of both small and large intestine with complication K50.819 [place] [address] [address] May, Hyperlipidemia E78.5 ; Anxiety F41.9 and Essential hypertension I10 [place] [address] [address] May, [place] [address] [address] May, Encounter for immunization Z23 and Vitam in B12 deficiency E53.8 [place] [address] [address] May, [place] [address] [address] Apr, [place] [address] [address] Apr, [place] [address] [address] Apr, Crohn's disease of both small and large intestine with complication K50.819 [place] [address] [address] Apr, Vitamin B12 deficiency E53.8 [place] [address] [address] Apr, Crohn's disease of both small and large intestine with complication K50.819 and Acute pain of right shoulder M25.511 [place] [address] [address] Mar, Type 2 diabetes mellitus without complic ation E11.9 ; Frequent falls R29.6 and Other chest pain R07.89 [place] [address] [address] Mar, [place] [address] [address] Mar, [place] [address] [address] Mar, Type 2 diabetes mellitus without complic ation E11.9 and Blurry vision, bilateral H53.8 [place] [address] [address] Mar, Vitamin B12 deficiency E53.8 [place] [address] [address] Mar, Crohn's disease of both small and large intestine with complication K50.819 [place] [address] [address] February, Vitamin B12 deficiency E53.8 [place] [address] [address] Jan, Crohn's disease of both small and large intestine with complication K50.819 [place] [address] [address] Jan, Crohn's disease of both small and large intestine with complication K50.819 [facility] [address] [facility] [id number] [address] [place] [address] Jan, Dark brown-colored urine R82 .99 and Acute suppurative otitis media of right ear without spontaneous rupture of tympanic membrane, recurrence not specified H66.001 [place] [address] [address] Jan, Encounter for immunization Z23 [place] [address] [address] Dec, Crohn's disease of both small and large intestine with complication K50.819 and Eustachian tube dysfunction, right H69.81 [place] [address] [address] Dec, [place] [address] [address] Dec, Contusion of right knee, initial encount er S80.01XA [place] [address] [address] Dec, [place] [address] [address] Dec, Acute pain of right knee M25.561 [place] [address] [address] Dec, Iron deficiency anemia due to chronic bl ood loss D50.0 [place] [address] [address] Dec, Hyperlipidemia E78.5 ; Type 2 diabetes m ellitus without complication E11.9 ; Vitamin B12 deficiency E53.8 ; Essential hypertension I10 ; Obstructive sleep apnea on CPAP G47.33 and Periodic limb movement sleep disorder G47.61 [place] [address] [address] Nov, Type 2 diabetes mellitus without complic ation E11.9 ; Vitamin B12 deficiency E53.8 ; Hyperlipidemia E78.5 ; Essential hypertension I10 ; Obstructive sleep apnea on CPAP G47.33 ; Periodic limb movement sleep disorder G47.61 ; Anxiety F41.9 ; Acquired hypothyroidism E03.9 and Chronic tension-type headache, intractable G44.221 [place] [address] [address] Nov, Crohn's disease of both small and large intestine with complication K50.819 [facility] [address] [place] [id number] [place] [address] 10 Nov, 2016 Vitamin B12 deficiency E53.8 [facility] [address] [place] [id number] [place] [address] Oct, [facility] [address] [address] Oct, Vitamin B12 deficiency E53.8 [facility] [address] [place] [id number] [place] [address] Sep, [facility] [address] [address] Sep, Vitamin B12 deficiency E53.8 [facility] [address] [address] Aug, [facility] [address] [address] Aug, Vitamin B12 deficiency E53.8 [facility] [address] [place] [id number] [place] [address] Aug, [facility] [address] [address] 24 Jul, 2016 Elevated ALT measurement R74.0 [place] [address] [place] [id number] [place] [address] Jul, Hematuria R31.9 ; Acute right-sided thor acic back pain M54.6 ; Major depressive disorder, recurrent episode, moderate F33.1 and Elevated ALT measurement R74.0 [facility] [address] [place] [id number] [place] [address] Jul, [facility] [address] [address] 19 Jul, 2016 Elevated ALT measurement R74.0 [facility] [address] [address] 14 Jul, 2016 Iron deficiency anemia due to chronic bl ood loss D50.0 [facility] [address] [address] 14 Jul, 2016 Type 2 diabetes mellitus without complic ation E11.9 ; Acquired hypothyroidism E03.9 ; Iron deficiency anemia due to chronic blood loss D50.0 ; Hyperlipidemia E78.5 and Essential hypertension I10 [place] [address] [address] 26 Jun, 2016 [place] [address] [address] 20 Jun, 2016 Vitamin B12 deficiency E53.8 [place] [address] [address] 16 Jun, 2016 Type 2 diabetes mellitus without complic ation E11.9 ; Acquired hypothyroidism E03.9 ; Iron deficiency anemia due to chronic blood loss D50.0 ; Hyperlipidemia E78.5 ; Essential hypertension I10 ; Chronic tension-type headache, intractable G44.221 ; Pulsatile tinnitus, bilateral H93.13 ; Obstructive sleep apnea on CPAP G47.33 and Major depressive disorder, recurrent episode, moderate F33.1 [place] [address] [address] 16 May, 2016 Vitamin B12 deficiency E53.8 [place] [address] [address] 08 May, 2016 [place] [address] [address] Apr, Vitamin B12 deficiency E53.8 [place] [address] [address] Apr, [address] [address] Mar, Chronic tension-type headache, intractab le G44.221 and Major depressive disorder, recurrent episode, moderate F33.1 [place] [address] [address] 14 Mar, 2016 Vitamin B12 deficiency E53.8 [place] [address] [address] February, [facility] [address] [place] [id number] [place] [address] February, Vitamin B12 deficiency E53.8 [facility] [address] [place] [id number] [place] [address] February, [facility] [address] [place] [id number] [place] [address] Jan, Dysuria R30.0 [facility] [address] [address] Jan, Type 2 diabetes mellitus without complic ation E11.9 and Essential hypertension I10 [facility] [address] [address] 15 Jan, 2016 Chronic diarrhea K52.9 [facility] [address] [address] Jan, [facility] [address] [address] Jan, Chronic diarrhea K52.9 [facility] [address] [place] [id number] [place] [address] Jan, [facility] [address] [address] Jan, Dysuria R30.0 [facility] [address] [place] [id number] [place] [address] Jan, Vitamin B12 deficiency E53.8 [facility] [address] [place] [id number] [place] [address] 07 Jan, 2016 Dysuria R30.0 and Iron deficiency anemia due to chronic blood loss D50.0 [facility] [address] [place] [id number] [place] [address] 05 Jan, 2016 Dysuria R30.0 [facility] [address] [place] [id number] [place] [address] 04 Jan, 2016 [facility] [address] [address] Dec, [place] [address] [place] [id number] [place] [address] 11 Dec, 2015 Iron deficiency anemia due to chronic bl ood loss D50.0 [place] [address] [address] 10 Dec, 2015 Dysuria R30.0 ; Fatigue R53.83 ; Hyperli pidemia E78.5 and Diarrhea R19.7 [place] [address] [address] 09 Dec, 2015 [place] [address] [address] Dec, [place] [address] [address] 10 Nov, 2015 Vitamin B12 deficiency E53.8 [place] [address] [address] Oct, Vitamin B12 deficiency E53.8 [place] [address] [address] Oct, [facility] [address] [facility] [id number] [address] [place] [address] 09 Oct, 2015 Headache R51 [place] [address] [address] 07 Oct, 2015 Essential hypertension I10 ; Type 2 diab etes mellitus without complication E11.9 ; Vitamin B12 deficiency E53.8 ; Acquired hypothyroidism E03.9 ; Iron deficiency anemia due to chronic blood loss D50.0 and Hyperlipidemia E78.5 [place] [address] [address] Sep, Essential hypertension I10 ; Vitamin B12 deficiency E53.8 ; Iron deficiency anemia due to chronic blood loss D50.0 ; Type 2 diabetes mellitus without complication E11.9 ; Hyperlipidemia E78.5 and Acquired hypothyroidism E03.9 [place] [address] [address] Sep, [place] [address] [address] Sep, [facility] [address] [address] Jul, [facility] [address] [address] Jun, [facility] [address] [address] Jun, [facility] [address] [address] Jun, Hyperlipidemia 272.4 ; Iron deficiency a nemia 280.9 ; Hypothyroidism 244.9 ; Diabetes mellitus without mention of complication, type II or unspecified type, not stated as uncontrolled 250.00 and Hypertension 401.9 [facility] [address] [address] Jun, [facility] [address] [address] Jun, [facility] [address] [address] May, Hyperlipidemia 272.4 [facility] [address] [address] May, [facility] [address] [address] May, [facility] [address] [address] Apr, Diabetes mellitus without mention of com plication, type II or unspecified type, not stated as uncontrolled 250.00 ; Hypothyroidism 244.9 ; Hyperlipidemia 272.4 ; Pain in joint, lower leg 719.46 and RUQ pain 789.01 [facility] [address] [address] Mar, Sinusitis 473.9 [facility] [address] [address] Mar, [facility] [address] [place] [id number] [place] [address] Mar, [facility] [address] [id number] [place] [address] Mar, Hematochezia 578.1 [facility] [address] [id number] [place] [address] February, Sinusitis 473.9 [facility] [address] [place] [id number] [place] [address] February, [facility] [address] [id number] [place] [address] Jan, [facility] [address] [place] [id number] [place] [address] Jan, [facility] [address] [place] [id number] [place] [address] Dec, [facility] [address] [id number] [place] [address] Dec, [facility] [address] [id number] [place] [address] Dec, [facility] [address] [place] [id number] [place] [address] Dec, [facility] [address] [id number] [place] [address] Dec, [facility] [address] [id number] [place] [address] Dec, [facility] [address] [id number] [place] [address] Dec, [facility] [address] [id number] [place] [address] Dec, [facility] [address] [id number] [place] [address] Dec, [facility] [address] [id number] [place] [address] Dec, [facility] [address] [id number] [place] [address] Dec, [facility] [address] [id number] [place] [address] Nov, [facility] [address] [id number] [place] [address] Nov, [facility] [address] [id number] [place] [address] Nov, [facility] [address] [id number] [place] [address] Nov, [facility] [address] [id number] [place] [address] Oct, [facility] [address] [id number] [place] [address] Oct, [facility] [address] [id number] [place] [address] Oct, [facility] [address] [id number] [place] [address] Oct, [facility] [address] [id number] [place] [address] Oct, [facility] [address] [id number] [place] [address] Oct, [facility] [address] [id number] [place] [address] Sep, [facility] [address] [id number] [place] [address] Sep, [facility] [address] [id number] [place] [address] Sep, [facility] [id number] [place] [address] Sep, [facility] [address] [id number] [place] [address] Sep, [facility] [address] [id number] [place] [address] Sep, [facility] [address] [id number] [place] [address] Sep, [facility] [address] [id number] [place] [address] Aug, [facility] [address] [id number] [place] [address] Aug, [facility] [address] [id number] [place] [address] Aug, [facility] [address] [id number] [place] [address] Aug, [facility] [address] [id number] [place] [address] Aug, [facility] [address] [id number] [place] [address] Aug, [facility] [id number] [place] [address] Aug, [facility] [address] [id number] [place] [address] Aug, [facility] [address] [id number] [place] [address] Aug, [facility] [address] [id number] [place] [address] Aug, [facility] [address] [id number] [place] [address] Aug, [facility] [address] [id number] [place] [address] Aug, [facility] [address] [id number] [place] [address] Aug, [facility] [address] [id number] [place] [address] Aug, [facility] [address] [id number] [place] [address] 07 Jul, 2014 [facility] [address] [id number] [place] [address] 07 Jul, 2013 [facility] [address] [facility] [id number] [place] [address] 06 Jul, 2013 [facility] [address] [facility] [id number] [place] [address] 06 Jul, 2013 [facility] [address] [id number] [place] [address] 24 Jun, 2013 [facility] [address] [facility] [id number] [place] [address] 24 Sep, 2013 [facility] [address] [facility] [id number] [place] [address] 23 Jun, 2013 [facility] [address] [id number] [place] [address] 23 Jun, 2013 [facility] [address] [id number] [place] [address] 19 Jun, 2013 [facility] [address] [id number] [place] [address] 19 Jun, 2013 [facility] [address] [facility] [id number] [place] [address] 11 Jun, 2013 [facility] [address] [id number] [place] [address] 11 Jun, 2013 [facility] [address] [id number] [place] [address] 11 Jun, 2013 [facility] [address] [id number] [place] [address] 11 Jun, 2013 [facility] [address] [facility] [id number] [place] [address] 10 Jun, 2013 [facility] [address] [id number] [place] [address] 10 Sep, 2013 [facility] [address] [facility] [id number] [place] [address] 09 Jun, 2013 [facility] [address] [id number] [place] [address] 09 Jun, 2013 [facility] [address] [id number] [facility] [place] [address] May, [facility] [address] [id number] [facility] [place] [address] May, [facility] [address] [facility] [id number] [facility] [place] [address] May, [facility] [address] [facility] [id number] [facility] [place] [address] May, [facility] [address] [id number] [facility] [place] [address] May, [facility] [address] [id number] [facility] [place] [address] May, [facility] [address] [facility] [id number] [place] [address] Apr, [facility] [address] [id number] [place] [address] Apr, [facility] [address] [id number] [facility] [place] [address] Apr, [facility] [address] [id number] [place] [address] Apr, [facility] [address] [facility] [id number] [place] [address] Apr, [facility] [address] [id number] [place] [address] Apr, [facility] [address] [facility] [id number] [place] [address] Apr, [facility] [address] [id number] [place] [address] Apr, [facility] [address] [id number] [place] [address] Apr, [facility] [address] [facility] [id number] [place] [address] Apr, [facility] [address] [id number] [place] [address] Apr, [facility] [address] [id number] [place] [address] Mar, [facility] [address] [facility] [id number] [place] [address] Mar, [facility] [address] [facility] [id number] [place] [address] Mar, [facility] [address] [id number] [place] [address] Mar, [facility] [address] [facility] [id number] [place] [address] February, [facility] [address] [facility] [id number] [place] [address] February, [facility] [address] [id number] [place] [address] Jan, [facility] [address] [id number] [place] [address] Jan, [address] [id number] Jan, [facility] [address] [id number] [place] [address] Jan[facility] [address] [id number] [place] [address] Jan, [facility] [address] [id number] [place] [address] Jan, [facility] [address] [id number] [place] [address] Jan, [facility] [address] [facility] [id number] [place] [address] Jan, [facility] [address] [id number] [place] [address] Jan, [facility] [address] [id number] [place] [address] Jan, [facility] [address] [id number] [place] [address] Jan, [facility] [address] [id number] [place] [address] Jan, [facility] [address] [id number] [place] [address] Jan, [facility] [address] [id number] [place] [address] Jan, [facility] [address] [id number] [place] [address] Jan, [facility] [address] [id number] [place] [address] Jan, [facility] [address] [id number] [place] [address] Jan, [facility] [address] [id number] [place] [address] Dec, [facility] [address] [id number] [place] [address] Dec, [facility] [address] [id number] [place] [address] Dec, [facility] [address] [id number] [place] [address] Dec, [facility] [address] [id number] [place] [address] Dec, [facility] [address] [id number] [place] [address] Dec, [facility] [address] [id number] [place] [address] Dec, [facility] [address] [id number] [place] [address] Nov, [facility] [address] [id number] [place] [address] Nov, [facility] [address] [id number] [place] [address] Nov, [facility] [address] [id number] [place] [address] Nov, [facility] [address] [id number] [place] [address] Nov, [facility] [address] [id number] [place] [address] Nov, [facility] [address] [id number] [place] [address] Nov, [facility] [address] [id number] [place] [address] Oct, [facility] [address] [id number] [place] [address] Oct, [facility] [address] [id number] [place] [address] Sep, [facility] [address] [id number] [place] [address] Sep, [facility] [id number] [place] [address] Sep, [facility] [address] [id number] [place] [address] Sep, [facility] [address] [id number] [place] [address] Sep, [facility] [address] [id number] [place] [address] Sep, [facility] [address] [id number] [place] [address] Sep, [facility] [address] [id number] [place] [address] Sep, [facility] [id number] [place] [address] Sep, [facility] [address] [id number] [place] [address] Sep, [facility] [id number] [place] [address] Aug, [facility] [address] [id number] [place] [address] Aug, [facility] [id number] [place] [address] Aug, [facility] [address] [id number] [place] [address] Aug, [facility] [id number] [place] [address] Aug, [facility] [id number] [place] [address] Jul, [facility] [id number] [place] [address] Jul, [facility] [address] [id number] [place] [address] Jul, [facility] [address] [id number] [place] [address] Jul, IMMUNIZATIONS No Known Immunizations SOCIAL HISTORY [...] and EF 63% Medical History bowel obstruction 2017 Medical History Enlarged Spleen-[facility] Surgical History thyroid [...]
--- OUTSIDE RECORDS SUMMARY | 2020-03-16 11:49 | XMS REPORT ---
Author Author Swathi Benavides Organization [facility] Address [address] [place] [address] Care Team Providers Care Substance Addiction Coordinator Name Role Phone WIL Benavides Unavailable PROBLEMS Type Condition ICD9-CM Code DWZ59-OL Code Onset Dates Condition S tatus SNOMED Code Problem Sensorineural hearing loss of right ear H90.41 Active 58574171 Problem Obstructive sleep apnea on CPAP G47.33 Active 45894026 Problem Periodic limb movement sleep disorder G47.61 Active 990862004 Problem Iron deficiency anemia due to chronic blood loss D 50.0 Active 98623021 Problem MACHUCA (nonalcoholic steatohepatitis) K75.81 Active 847086909 Problem Vitamin B12 deficiency E53.8 Active 179817044 Problem Chronic diarrhea K52.9 Active 236 851981 Problem Vitamin D deficiency E55.9 Active 63380943 Problem BMI 50.0-59.9, adult Z68.43 Active 550334917 Problem Fatty liver K76.0 Active 86373463 7 Problem Anxiety F41.9 Active 62264116 Problem Major depressive disorder, recurrent episode, moderate F33.1 Active 374253202 Problem Chronic tension-type headache, intractable G44.221 Active 708373236 Problem Right upper quadrant pain R10.11 Acti ve 88593815 Problem Frequent falls R29.6 Active 29877 2001 Problem Crohn's disease of both small and large intestin e with complication K50.819 Active 17326782 Problem Type 2 diabetes mellitus with other specified complication E11.69 Active 425780718392 Problem Hyperlipidemia, unspecified E78.5 Ac tive 53636837 Problem Mixed stress and urge urinary incontinence N39.46 Active 481317734 Problem Sinusitis chronic, frontal J32.1 Act katlyn 84909776 Problem Seasonal allergies J30.2 Active 4 12715813 Problem Other chronic pain G89.29 Active 8 6084683 Problem Hyperlipidemia E78.5 Active 65288 004 Problem Bilateral primary osteoarthritis of knee M17.0 Active 402510808 Problem Essential hypertension I10 Active 89376881 Problem Acquired hypothyroidism E03.9 Active 076842428 Problem History of hysterectomy for benign disease Z90.710 Active 519467067 Problem Morbid (severe) obesity due to excess calories E66 .01 Active 608771847 Problem Other cirrhosis of liver K74.69 Activ e 37556132 Problem Portal hypertension K76.6 Active 26802224 ALLERGIES No Information ENCOUNTERS Encounter Location Date Diagnosis [place] [address] [address] Oct, [place] [address] [address] Oct, [place] [address] [address] Oct, [place] [address] [address] Sep, Major depressive disorder, recurrent epi sode, moderate F33.1 ; Vitamin B12 deficiency E53.8 ; BMI 50.0-59.9, adult Z68.43 and Essential hypertension I10 [place] [address] [address] Sep, Breast pain, right N64.[address] [place] [address] Sep, Breast pain, right N64.[address] [place] [address] Sep, Breast pain, right N64.[address] [place] [address] Sep, Breast pain, right N64.4 [place] [address] [address] Aug, [place] [address] [address] Aug, Major depressive disorder, recurrent epi sode, moderate F33.1 ; BMI 50.0-59.9, adult Z68.43 ; Type 2 diabetes mellitus without complication E11.9 ; Breast pain, right N64.4 and Encounter for screening mammogram for breast cancer Z12.31 [facility] [address] [place] [address] 13 Jun, 2019 Pneumonia of right middle lo be due to infectious organism J18.1 and Cough R05 [address] [place] [address] 09 Jun, 2019 Acute nasopharyngitis J00 [place] [address] [address] May, Iron deficiency anemia due to chronic [...] Major depressive disorder, recurrent episode, moderate F33.1 [place] [address] [address] May, Hyperlipidemia, unspecified E78.5 ; Othe r cirrhosis of liver K74.69 and Iron deficiency anemia due to chronic blood loss D50.0 [place] [address] [place] [id number] [place] [address] February, [facility] [address] [place] [address] February, Acute recurrent pansinusitis J01.[address] [place] [address] February, Acute maxillary sinusitis, r ecurrence not specified J01.00 [place] [address] [address] Jan, Bilateral primary osteoarthritis of knee M17.0 ; Morbid obesity E66.01 ; Viral syndrome B34.9 and Atrial dilatation, left I51.7 [place] [address] [place] [id number] [place] [address] Jan, [place] [address] [address] Dec, Trigeminy R00.8 [place] [address] [address] Dec, Essential hypertension I10 ; Morbid obes ity E66.01 ; Low back pain M54.5 ; Other chronic pain G89.29 and Pain in right knee M25.561 [place] [address] [address] Nov, [place] [address] [address] Oct, Palpitations R00.2 [place] [address] [address] Oct, Encounter for Medicare annual wellness e [...] small and large intestine with complication K50.819 [facility] [address] [place] [id number] [place] [address] Oct, [place] [address] [address] Oct, Crohn's disease of both small and large intestine with complication K50.819 [facility] [address] [facility] [id number] [place] [address] Jul, Sinusitis chronic, frontal J 32.1 ; Acute mucoid otitis media of both ears H65.113 ; Seasonal allergies J30.2 and BMI 50.0-59.9, adult Z68.43 [facility] [address] [address] Jul, Essential hypertension I10 ; Type 2 diab etes mellitus with other specified complication E11.69 ; BMI 50.0-59.9, adult Z68.43 ; Mixed stress and urge urinary incontinence N39.46 and Mid back pain on right side M54.9 [place] [address] [address] Jun, Iron deficiency anemia due to chronic bl ood loss D50.0 ; Hyperlipidemia E78.5 ; Type 2 diabetes mellitus with other specified complication E11.69 ; Vitamin B12 deficiency E53.8 and Vitamin D deficiency E55.9 [facility] [address] [facility] [id number] [address] [place] [address] Jun, Cough R05 and BMI 50.0-59.9, adult Z68.43 [place] [address] [address] Jun, [place] [address] [address] May, Iron deficiency anemia due to chronic bl ood loss D50.0 ; Chronic diarrhea K52.9 ; Essential hypertension I10 ; Type 2 diabetes mellitus with other specified complication E11.69 ; Vitamin D deficiency E55.9 ; Colon stricture K56.699 ; Vitamin B12 deficiency E53.8 ; Hyperlipidemia E78.5 and BMI 50.0-59.9, adult Z68.43 [place] [address] [address] May, [address] [address] Apr, Nonhealing wound of heel S91.309A and Christopher dy mass index (BMI) of 50-59.9 in adult Z68.43 [place] [address] [address] Mar, [facility] [address] [facility] [place] [address] Mar, BMI 50.0-59.9, adult Z68.43 ; Flank pain R10.9 and Weight loss counseling, encounter for Z71.3 [place] [address] [facility] [place] [address] February, [place] [address] [address] Jan, [place] [address] [place] [id number] [place] [address] Jan, [facility] [address] [facility] [id number] [address] [place] [address] Jan, Diarrhea due to staphylococc us A04.8 and Diarrhea, unspecified type R19.7 [place] [address] [place] [id number] [place] [address] Jan, Acquired hypothyroidism E03.9 ; Type 2 d iabetes mellitus with other specified complication E11.69 ; Hyperlipidemia E78.5 ; Essential hypertension I10 ; Major depressive disorder, recurrent episode, moderate F33.1 and Vitamin D deficiency E55.9 [place] [address] [place] [id number] [place] [address] Jan, Type 2 diabetes mellitus with other spec ified complication E11.69 ; Hyperlipidemia E78.5 ; Essential hypertension I10 ; Acquired hypothyroidism E03.9 ; Major depressive disorder, recurrent episode, moderate F33.1 ; Vitamin D deficiency E55.9 ; Sinus congestion R09.81 and BMI 50.0-59.9, adult Z68.43 [place] [address] [place] [id number] [place] [address] Dec, [address] [address] Sep, Encounter for immunization Z23 [place] [address] [place] [id number] [place] [address] Sep, [place] [address] [address] Sep, Vitamin B12 deficiency E53.8 [place] [address] [address] Aug, [place] [address] [address] Aug, BMI 60.0-69.9, adult Z68.44 and Acute no n-recurrent maxillary sinusitis J01.00 [place] [address] [address] Aug, [place] [address] [address] Aug, Medicare annual wellness visit, initial Z00.00 ; Screening for breast cancer Z12.31 ; BMI 40.0-44.9, adult Z68.41 and Acquired hypothyroidism E03.9 [place] [address] [address] Jul, Actinic keratosis L57.0 [place] [address] [address] Jul, Actinic keratosis L57.0 [place] [address] [address] Jul, Type 2 diabetes mellitus with other spec ified complication E11.69 ; Actinic keratosis L57.0 and Hypothyroidism, unspecified E03.9 [place] [address] [address] Jul, [place] [address] [address] Jul, [place] [address] [address] Jul, Vitamin B12 deficiency E53.8 [place] [address] [address] 28 Jun, 2017 Acquired hypothyroidism E03.9 and Chroni c tension-type headache, intractable G44.221 [place] [address] [address] Jun, Back muscle spasm M62.830 and BMI 50.0-5 9.9, adult Z68.43 [place] [address] [address] Jun, Vitamin B12 deficiency E53.8 [place] [address] [address] Jun, Crohn's disease of both small and large intestine with complication K50.819 [place] [address] [address] Jun, Crohn's disease of both small and large intestine with complication K50.819 [place] [address] [address] May, Hyperlipidemia E78.5 ; Anxiety F41.9 and Essential hypertension I10 [place] [address] [address] May, [place] [address] [address] May, Encounter for immunization Z23 and Vitam in B12 deficiency E53.8 [place] [address] [address] May, [place] [address] [address] Apr, [place] [address] [address] Apr, [place] [address] [address] Apr, Crohn's disease of both small and large intestine with complication K50.819 [place] [address] [address] Apr, Vitamin B12 deficiency E53.8 [place] [address] [address] Apr, Crohn's disease of both small and large intestine with complication K50.819 and Acute pain of right shoulder M25.511 [place] [address] [address] Mar, Type 2 diabetes mellitus without complic ation E11.9 ; Frequent falls R29.6 and Other chest pain R07.89 [place] [address] [address] Mar, [place] [address] [address] Mar, [place] [address] [address] Mar, Type 2 diabetes mellitus without complic ation E11.9 and Blurry vision, bilateral H53.8 [place] [address] [address] Mar, Vitamin B12 deficiency E53.8 [place] [address] [address] Mar, Crohn's disease of both small and large intestine with complication K50.819 [place] [address] [address] February, Vitamin B12 deficiency E53.8 [place] [address] [address] Jan, Crohn's disease of both small and large intestine with complication K50.819 [place] [address] [address] Jan, Crohn's disease of both small and large intestine with complication K50.819 [facility] [address] [facility] [id number] [address] [place] [address] Jan, Dark brown-colored urine R82 .99 and Acute suppurative otitis media of right ear without spontaneous rupture of tympanic membrane, recurrence not specified H66.001 [place] [address] [address] Jan, Encounter for immunization Z23 [place] [address] [address] Dec, Crohn's disease of both small and large intestine with complication K50.819 and Eustachian tube dysfunction, right H69.81 [place] [address] [address] Dec, [place] [address] [address] Dec, Contusion of right knee, initial encount er S80.01XA [place] [address] [address] Dec, [place] [address] [address] Dec, Acute pain of right knee M25.561 [place] [address] [address] Dec, Iron deficiency anemia due to chronic bl ood loss D50.0 [place] [address] [address] Dec, Hyperlipidemia E78.5 ; Type 2 diabetes m ellitus without complication E11.9 ; Vitamin B12 deficiency E53.8 ; Essential hypertension I10 ; Obstructive sleep apnea on CPAP G47.33 and Periodic limb movement sleep disorder G47.61 [place] [address] [address] Nov, Type 2 diabetes mellitus without complic ation E11.9 ; Vitamin B12 deficiency E53.8 ; Hyperlipidemia E78.5 ; Essential hypertension I10 ; Obstructive sleep apnea on CPAP G47.33 ; Periodic limb movement sleep disorder G47.61 ; Anxiety F41.9 ; Acquired hypothyroidism E03.9 and Chronic tension-type headache, intractable G44.221 [place] [address] [address] Nov, Crohn's disease of both small and large intestine with complication K50.819 [facility] [address] [place] [id number] [place] [address] 10 Nov, 2016 Vitamin B12 deficiency E53.8 [facility] [address] [place] [id number] [place] [address] Oct, [facility] [address] [address] Oct, Vitamin B12 deficiency E53.8 [facility] [address] [place] [id number] [place] [address] Sep, [facility] [address] [address] Sep, Vitamin B12 deficiency E53.8 [facility] [address] [address] Aug, [facility] [address] [address] Aug, Vitamin B12 deficiency E53.8 [facility] [address] [place] [id number] [place] [address] Aug, [facility] [address] [address] 24 Jul, 2016 Elevated ALT measurement R74.0 [place] [address] [place] [id number] [place] [address] Jul, Hematuria R31.9 ; Acute right-sided thor acic back pain M54.6 ; Major depressive disorder, recurrent episode, moderate F33.1 and Elevated ALT measurement R74.0 [facility] [address] [place] [id number] [place] [address] Jul, [facility] [address] [address] 19 Jul, 2016 Elevated ALT measurement R74.0 [facility] [address] [address] 14 Jul, 2016 Iron deficiency anemia due to chronic bl ood loss D50.0 [facility] [address] [address] 14 Jul, 2016 Type 2 diabetes mellitus without complic ation E11.9 ; Acquired hypothyroidism E03.9 ; Iron deficiency anemia due to chronic blood loss D50.0 ; Hyperlipidemia E78.5 and Essential hypertension I10 [place] [address] [address] 26 Jun, 2016 [place] [address] [address] 20 Jun, 2016 Vitamin B12 deficiency E53.8 [place] [address] [address] 16 Jun, 2016 Type 2 diabetes mellitus without complic ation E11.9 ; Acquired hypothyroidism E03.9 ; Iron deficiency anemia due to chronic blood loss D50.0 ; Hyperlipidemia E78.5 ; Essential hypertension I10 ; Chronic tension-type headache, intractable G44.221 ; Pulsatile tinnitus, bilateral H93.13 ; Obstructive sleep apnea on CPAP G47.33 and Major depressive disorder, recurrent episode, moderate F33.1 [place] [address] [address] 16 May, 2016 Vitamin B12 deficiency E53.8 [place] [address] [address] 08 May, 2016 [place] [address] [address] Apr, Vitamin B12 deficiency E53.8 [place] [address] [address] Apr, [address] [address] Mar, Chronic tension-type headache, intractab le G44.221 and Major depressive disorder, recurrent episode, moderate F33.1 [place] [address] [address] 14 Mar, 2016 Vitamin B12 deficiency E53.8 [place] [address] [address] February, [facility] [address] [place] [id number] [place] [address] February, Vitamin B12 deficiency E53.8 [facility] [address] [place] [id number] [place] [address] February, [facility] [address] [place] [id number] [place] [address] Jan, Dysuria R30.0 [facility] [address] [address] Jan, Type 2 diabetes mellitus without complic ation E11.9 and Essential hypertension I10 [facility] [address] [address] 15 Jan, 2016 Chronic diarrhea K52.9 [facility] [address] [address] Jan, [facility] [address] [address] Jan, Chronic diarrhea K52.9 [facility] [address] [place] [id number] [place] [address] Jan, [facility] [address] [address] Jan, Dysuria R30.0 [facility] [address] [place] [id number] [place] [address] Jan, Vitamin B12 deficiency E53.8 [facility] [address] [place] [id number] [place] [address] 07 Jan, 2016 Dysuria R30.0 and Iron deficiency anemia due to chronic blood loss D50.0 [facility] [address] [place] [id number] [place] [address] 05 Jan, 2016 Dysuria R30.0 [facility] [address] [place] [id number] [place] [address] 04 Jan, 2016 [facility] [address] [address] Dec, [place] [address] [place] [id number] [place] [address] 11 Dec, 2015 Iron deficiency anemia due to chronic bl ood loss D50.0 [place] [address] [address] 10 Dec, 2015 Dysuria R30.0 ; Fatigue R53.83 ; Hyperli pidemia E78.5 and Diarrhea R19.7 [place] [address] [address] 09 Dec, 2015 [place] [address] [address] Dec, [place] [address] [address] 10 Nov, 2015 Vitamin B12 deficiency E53.8 [place] [address] [address] Oct, Vitamin B12 deficiency E53.8 [place] [address] [address] Oct, [facility] [address] [facility] [id number] [address] [place] [address] 09 Oct, 2015 Headache R51 [place] [address] [address] 07 Oct, 2015 Essential hypertension I10 ; Type 2 diab etes mellitus without complication E11.9 ; Vitamin B12 deficiency E53.8 ; Acquired hypothyroidism E03.9 ; Iron deficiency anemia due to chronic blood loss D50.0 and Hyperlipidemia E78.5 [place] [address] [address] Sep, Essential hypertension I10 ; Vitamin B12 deficiency E53.8 ; Iron deficiency anemia due to chronic blood loss D50.0 ; Type 2 diabetes mellitus without complication E11.9 ; Hyperlipidemia E78.5 and Acquired hypothyroidism E03.9 [place] [address] [address] Sep, [place] [address] [address] Sep, [facility] [address] [address] Jul, [facility] [address] [address] Jun, [facility] [address] [address] Jun, [facility] [address] [address] Jun, Hyperlipidemia 272.4 ; Iron deficiency a nemia 280.9 ; Hypothyroidism 244.9 ; Diabetes mellitus without mention of complication, type II or unspecified type, not stated as uncontrolled 250.00 and Hypertension 401.9 [facility] [address] [address] Jun, [facility] [address] [address] Jun, [facility] [address] [address] May, Hyperlipidemia 272.4 [facility] [address] [address] May, [facility] [address] [address] May, [facility] [address] [address] Apr, Diabetes mellitus without mention of com plication, type II or unspecified type, not stated as uncontrolled 250.00 ; Hypothyroidism 244.9 ; Hyperlipidemia 272.4 ; Pain in joint, lower leg 719.46 and RUQ pain 789.01 [facility] [address] [address] Mar, Sinusitis 473.9 [facility] [address] [address] Mar, [facility] [id number] [place] [address] Mar, [facility] [address] [id number] [place] [address] Mar, Hematochezia 578.1 [facility] [address] [id number] [place] [address] February, Sinusitis 473.9 [facility] [id number] [place] [address] February, [facility] [address] [id number] [place] [address] Jan, [facility] [id number] [place] [address] Jan, [facility] [id number] [place] [address] Dec, [facility] [id number] [place] [address] Dec, [facility] [address] [id number] [place] [address] Dec, [facility] [id number] [place] [address] Dec, [facility] [id number] [place] [address] Dec, [facility] [id number] [place] [address] Dec, [facility] [address] [id number] [place] [address] Dec, [facility] [id number] [place] [address] Dec, [facility] [id number] [place] [address] Dec, [facility] [id number] [place] [address] Dec, [facility] [address] [id number] [place] [address] Dec, [facility] [address] [id number] [place] [address] Nov, [facility] [address] [id number] [place] [address] Nov, [facility] [address] [id number] [place] [address] Nov, [facility] [address] [id number] [place] [address] Nov, [facility] [address] [id number] [place] [address] Oct, [facility] [address] [id number] [place] [address] Oct, [facility] [address] [id number] [place] [address] Oct, [facility] [address] [facility] [id number] [place] [address] Oct, [facility] [address] [id number] [place] [address] Oct, [facility] [address] [id number] [place] [address] Oct, [facility] [address] [id number] [place] [address] Sep, [facility] [address] [id number] [place] [address] Sep, [facility] [address] [id number] [place] [address] Sep, [facility] [id number] [place] [address] Sep, [facility] [address] [id number] [place] [address] Sep, [facility] [address] [id number] [place] [address] Sep, [facility] [address] [id number] [place] [address] Sep, [facility] [address] [id number] [place] [address] Aug, [facility] [address] [id number] [place] [address] Aug, [facility] [address] [id number] [place] [address] Aug, [facility] [address] [id number] [place] [address] Aug, [facility] [address] [id number] [place] [address] Aug, [facility] [address] [id number] [place] [address] Aug, [facility] [id number] [place] [address] Aug, [facility] [address] [id number] [place] [address] Aug, [facility] [address] [id number] [place] [address] Aug, [facility] [address] [id number] [place] [address] Aug, [facility] [address] [id number] [place] [address] Aug, [facility] [address] [id number] [place] [address] Aug, [facility] [address] [id number] [place] [address] Aug, [facility] [address] [id number] [place] [address] Aug, [facility] [address] [id number] [place] [address] 07 Jul, 2014 [facility] [address] [id number] [place] [address] 07 Jul, 2013 [facility] [address] [facility] [id number] [place] [address] 06 Jul, 2013 [facility] [address] [facility] [id number] [place] [address] 06 Jul, 2013 [facility] [address] [id number] [place] [address] 24 Jun, 2013 [facility] [address] [facility] [id number] [place] [address] 24 Sep, 2013 [facility] [address] [facility] [id number] [place] [address] 23 Jun, 2013 [facility] [address] [id number] [place] [address] 23 Jun, 2013 [facility] [address] [id number] [place] [address] 19 Jun, 2013 [facility] [address] [id number] [place] [address] 19 Jun, 2013 [facility] [address] [facility] [id number] [place] [address] 11 Jun, 2013 [facility] [address] [id number] [place] [address] 11 Jun, 2013 [facility] [address] [id number] [place] [address] 11 Jun, 2013 [facility] [address] [id number] [place] [address] 11 Jun, 2013 [facility] [address] [facility] [id number] [place] [address] 10 Jun, 2013 [facility] [address] [id number] [place] [address] 10 Sep, 2013 [facility] [address] [facility] [id number] [place] [address] 09 Jun, 2013 [facility] [address] [id number] [place] [address] 09 Jun, 2013 [facility] [address] [id number] [place] [address] May, [facility] [address] [id number] [place] [address] May, [facility] [address] [facility] [id number] [place] [address] May, [facility] [address] [facility] [id number] [place] [address] May, [facility] [address] [id number] [place] [address] May, [facility] [address] [id number] [place] [address] May, [facility] [address] [facility] [id number] [place] [address] Apr, [facility] [address] [id number] [place] [address] Apr, [facility] [address] [id number] [place] [address] Apr, [facility] [address] [id number] [place] [address] Apr, [facility] [address] [facility] [id number] [place] [address] Apr, [facility] [address] [id number] [place] [address] Apr, [facility] [address] [facility] [id number] [place] [address] Apr, [facility] [address] [id number] [place] [address] Apr, [facility] [address] [id number] [place] [address] Apr, [facility] [address] [facility] [id number] [place] [address] Apr, [facility] [address] [id number] [place] [address] Apr, [facility] [address] [id number] [place] [address] Mar, [facility] [address] [facility] [id number] [place] [address] Mar, [facility] [address] [facility] [id number] [place] [address] Mar, [facility] [address] [id number] [place] [address] Mar, [facility] [address] [facility] [id number] [place] [address] February, [facility] [address] [facility] [id number] [place] [address] February, [facility] [address] [id number] [place] [address] Jan, [facility] [address] [id number] [place] [address] Jan, [address] [id number] Jan, [facility] [address] [id number] [place] [address] Jan, [facility] [address] [id number] [place] [address] Jan, [facility] [address] [id number] [place] [address] Jan, [facility] [address] [id number] [place] [address] Jan, [facility] [address] [facility] [id number] [place] [address] Jan, [facility] [address] [id number] [place] [address] Jan, [facility] [address] [id number] [place] [address] Jan, [facility] [address] [id number] [place] [address] Jan, [facility] [address] [id number] [place] [address] Jan, [facility] [address] [id number] [place] [address] Jan, [facility] [address] [id number] [place] [address] Jan, [facility] [address] [id number] [place] [address] Jan, [facility] [address] [id number] [place] [address] Jan, [facility] [address] [id number] [place] [address] Jan, [facility] [address] [id number] [place] [address] Dec, [facility] [address] [id number] [place] [address] Dec, [facility] [address] [id number] [place] [address] Dec, [facility] [address] [id number] [place] [address] Dec, [facility] [address] [id number] [place] [address] Dec, [facility] [address] [id number] [place] [address] Dec, [facility] [address] [id number] [place] [address] Dec, [facility] [address] [id number] [place] [address] Nov, [facility] [address] [id number] [place] [address] Nov, [facility] [address] [id number] [place] [address] Nov, [facility] [address] [id number] [place] [address] Nov, [facility] [address] [id number] [place] [address] Nov, [facility] [address] [id number] [place] [address] Nov, [facility] [address] [id number] [place] [address] Nov, [facility] [address] [id number] [place] [address] Oct, [facility] [address] [id number] [place] [address] Oct, [facility] [address] [id number] [place] [address] Sep, [facility] [address] [id number] [place] [address] Sep, [facility] [id number] [place] [address] Sep, [facility] [address] [id number] [place] [address] Sep, [facility] [address] [id number] [place] [address] Sep, [facility] [address] [id number] [place] [address] Sep, [facility] [address] [id number] [place] [address] Sep, [facility] [address] [id number] [place] [address] Sep, [facility] [id number] [place] [address] Sep, [facility] [address] [id number] [place] [address] Sep, [facility] [id number] [place] [address] Aug, [facility] [id number] [place] [address] Aug, [facility] [id number] [place] [address] Aug, [facility] [id number] [place] [address] Aug, [facility] [address] [address] Aug, [facility] [address] [address] Jul, [facility] [address] [address] Jul, [facility] [address] [address] Jul, [facility] [address] [address] Jul, IMMUNIZATIONS No Known Immunizations SOCIAL HISTORY Never Assessed REASON FOR VISIT PLAN OF CARE VITAL SIGNS Height 62 in 2014-03-19 Weight 291.5 lbs 2014-03-19 Temperature 97.8 degrees Fahrenheit 2014-03-19 Heart Rate 84 bpm 2014-03-19 Respiratory Rate 24 2014-03-19 Blood pressure systolic 124 mmHg 2014-03-19 Blood pressure diastolic 78 mmHg 2014-03-19 MEDICATIONS Unknown Medications RESULTS No Results PROCEDURES Procedure Date Ordered Result Body Site COMPLETE CBC W/AUTO DIFF WBC March 19, 2014 VENIPUNCT, ROUTINE* March 19, 2014 INSTRUCTIONS MEDICATIONS ADMINISTERED No Known Medications [...]
--- OUTSIDE RECORDS SUMMARY | 2020-03-16 11:50 | XMS REPORT ---
Author Author Swathi Benavides Organization [facility] Address [address] [place] [address] Care Team Providers Care Supervisor [employer] Name Role Phone WIL Benavides Unavailable PROBLEMS Type Condition ICD9-CM Code [id number] Code Onset Dates Condition S tatus SNOMED Code Problem Periodic limb movement sleep disorder G47.61 Active 111164396 Problem MACHUCA (nonalcoholic steatohepatitis) K75.81 Active 947550828 Problem Obstructive sleep apnea on CPAP G47.33 Active 65294178 Problem Anxiety F41.9 Active 44579730 Problem Fatty liver K76.0 Active 33565909 7 Problem Acquired hypothyroidism E03.9 Active 236796478 Problem Major depressive disorder, recurrent episode, moderate F33.1 Active 295210861 Problem Vitamin D deficiency E55.9 Active 11243179 Problem BMI 50.0-59.9, adult Z68.43 Active 596423190 Problem Sensorineural hearing loss of right ear H90.41 Active 55326370 Problem Vitamin B12 deficiency E53.8 Active 052250981 Problem Essential hypertension I10 Active 44663079 Problem Chronic tension-type headache, intractable G44.221 Active 674110212 Problem Iron deficiency anemia due to chronic blood loss D 50.0 Active 50542709 Problem Frequent falls R29.6 Active 22892 2002 Problem Crohn's disease of both small and large intestin e with complication K50.819 Active 45569546 Problem Type 2 diabetes mellitus with other specified complication E11.69 Active 899212615764 Problem Hyperlipidemia, unspecified E78.5 Ac tive 18465887 Problem Mixed stress and urge urinary incontinence N39.46 Active 101901083 Problem Seasonal allergies J30.2 Active 4 94926867 Problem Sinusitis chronic, frontal J32.1 Act katlyn 77159095 Problem Portal hypertension K76.6 Active 88197317 Problem Right upper quadrant pain R10.11 Acti ve 38521549 Problem Bilateral primary osteoarthritis of knee M17.0 Active 203021347 Problem Chronic diarrhea K52.9 Active 236 875524 Problem Hyperlipidemia E78.5 Active 65588 004 Problem Morbid (severe) obesity due to excess calories E66 .01 Active 584624365 Problem History of hysterectomy for benign disease Z90.710 Active 426122082 Problem Other cirrhosis of liver K74.69 Activ e 94158592 Problem Other chronic pain G89.29 Active 8 [id number] ALLERGIES No Information ENCOUNTERS Encounter Location Date Diagnosis [place] [address] [address] Oct, [place] [address] [address] Oct, [place] [address] [address] Oct, [place] [address] [address] Sep, Major depressive disorder, recurrent epi sode, moderate F33.1 ; Vitamin B12 deficiency E53.8 ; BMI 50.0-59.9, adult Z68.43 and Essential hypertension I10 [place] [address] [address] Sep, Breast pain, right N64.[address] [place] [address] Sep, Breast pain, right N64.[address] [place] [address] Sep, Breast pain, right N64.[address] [place] [address] Sep, Breast pain, right N64.4 [place] [address] [address] Aug, [place] [address] [address] Aug, Major depressive disorder, recurrent epi sode, moderate F33.1 ; BMI 50.0-59.9, adult Z68.43 ; Type 2 diabetes mellitus without complication E11.9 ; Breast pain, right N64.4 and Encounter for screening mammogram for breast cancer Z12.31 [facility] [address] [place] [address] 13 Jun, 2019 Pneumonia of right middle lo be due to infectious organism J18.1 and Cough R05 [address] [place] [address] 09 Jun, 2019 Acute nasopharyngitis J00 [place] [address] [address] May, Iron deficiency anemia due to chronic [...] Major depressive disorder, recurrent episode, moderate F33.1 [place] [address] [address] May, Hyperlipidemia, unspecified E78.5 ; Othe r cirrhosis of liver K74.69 and Iron deficiency anemia due to chronic blood loss D50.0 [place] [address] [place] [id number] [place] [address] February, [facility] [address] [place] [address] February, Acute recurrent pansinusitis J01.[address] [place] [address] February, Acute maxillary sinusitis, r ecurrence not specified J01.00 [place] [address] [address] Jan, Bilateral primary osteoarthritis of knee M17.0 ; Morbid obesity E66.01 ; Viral syndrome B34.9 and Atrial dilatation, left I51.7 [place] [address] [place] [id number] [place] [address] Jan, [place] [address] [address] Dec, Trigeminy R00.8 [place] [address] [address] Dec, Essential hypertension I10 ; Morbid obes ity E66.01 ; Low back pain M54.5 ; Other chronic pain G89.29 and Pain in right knee M25.561 [place] [address] [address] Nov, [place] [address] [address] Oct, Palpitations R00.2 [place] [address] [address] Oct, Encounter for Medicare annual wellness e [...] and large intestine with complication K50.819 [facility] [address] [place] [id number] [place] [address] Oct, [place] [address] [address] Oct, Crohn's disease of both small and large intestine with complication K50.819 [facility] [address] [facility] [id number] [place] [address] Jul, Sinusitis chronic, frontal J 32.1 ; Acute mucoid otitis media of both ears H65.113 ; Seasonal allergies J30.2 and BMI 50.0-59.9, adult Z68.43 [facility] [address] [address] Jul, Essential hypertension I10 ; Type 2 diab etes mellitus with other specified complication E11.69 ; BMI 50.0-59.9, adult Z68.43 ; Mixed stress and urge urinary incontinence N39.46 and Mid back pain on right side M54.9 [place] [address] [address] Jun, Iron deficiency anemia due to chronic bl ood loss D50.0 ; Hyperlipidemia E78.5 ; Type 2 diabetes mellitus with other specified complication E11.69 ; Vitamin B12 deficiency E53.8 and Vitamin D deficiency E55.9 [facility] [address] [facility] [id number] [address] [place] [address] Jun, Cough R05 and BMI 50.0-59.9, adult Z68.43 [place] [address] [address] Jun, [place] [address] [address] May, Iron deficiency anemia due to chronic bl ood loss D50.0 ; Chronic diarrhea K52.9 ; Essential hypertension I10 ; Type 2 diabetes mellitus with other specified complication E11.69 ; Vitamin D deficiency E55.9 ; Colon stricture K56.699 ; Vitamin B12 deficiency E53.8 ; Hyperlipidemia E78.5 and BMI 50.0-59.9, adult Z68.43 [place] [address] [address] May, [address] [address] Apr, Nonhealing wound of heel S91.309A and Christopher dy mass index (BMI) of 50-59.9 in adult Z68.43 [place] [address] [address] Mar, [facility] [address] [id number] [place] [address] Mar, BMI 50.0-59.9, adult Z68.43 ; Flank pain R10.9 and Weight loss counseling, encounter for Z71.3 [place] [address] [id number] [place] [address] February, [place] [address] [address] Jan, [place] [address] [place] [id number] [place] [address] Jan, [facility] [address] [facility] [id number] [address] [place] [address] Jan, Diarrhea due to staphylococc us A04.8 and Diarrhea, unspecified type R19.7 [place] [address] [place] [id number] [place] [address] Jan, Acquired hypothyroidism E03.9 ; Type 2 d iabetes mellitus with other specified complication E11.69 ; Hyperlipidemia E78.5 ; Essential hypertension I10 ; Major depressive disorder, recurrent episode, moderate F33.1 and Vitamin D deficiency E55.9 [place] [address] [place] [id number] [place] [address] Jan, Type 2 diabetes mellitus with other spec ified complication E11.69 ; Hyperlipidemia E78.5 ; Essential hypertension I10 ; Acquired hypothyroidism E03.9 ; Major depressive disorder, recurrent episode, moderate F33.1 ; Vitamin D deficiency E55.9 ; Sinus congestion R09.81 and BMI 50.0-59.9, adult Z68.43 [place] [address] [place] [id number] [place] [address] Dec, [address] [address] Sep, Encounter for immunization Z23 [place] [address] [place] [id number] [place] [address] Sep, [place] [address] [address] Sep, Vitamin B12 deficiency E53.8 [place] [address] [address] Aug, [place] [address] [address] Aug, BMI 60.0-69.9, adult Z68.44 and Acute no n-recurrent maxillary sinusitis J01.00 [place] [address] [address] Aug, [place] [address] [address] Aug, Medicare annual wellness visit, initial Z00.00 ; Screening for breast cancer Z12.31 ; BMI 40.0-44.9, adult Z68.41 and Acquired hypothyroidism E03.9 [place] [address] [address] Jul, Actinic keratosis L57.0 [place] [address] [address] Jul, Actinic keratosis L57.0 [place] [address] [address] Jul, Type 2 diabetes mellitus with other spec ified complication E11.69 ; Actinic keratosis L57.0 and Hypothyroidism, unspecified E03.9 [place] [address] [address] Jul, [place] [address] [address] Jul, [place] [address] [address] Jul, Vitamin B12 deficiency E53.8 [place] [address] [address] 28 Jun, 2017 Acquired hypothyroidism E03.9 and Chroni c tension-type headache, intractable G44.221 [place] [address] [address] Jun, Back muscle spasm M62.830 and BMI 50.0-5 9.9, adult Z68.43 [place] [address] [address] Jun, Vitamin B12 deficiency E53.8 [place] [address] [address] Jun, Crohn's disease of both small and large intestine with complication K50.819 [place] [address] [address] Jun, Crohn's disease of both small and large intestine with complication K50.819 [place] [address] [address] May, Hyperlipidemia E78.5 ; Anxiety F41.9 and Essential hypertension I10 [place] [address] [address] May, [place] [address] [address] May, Encounter for immunization Z23 and Vitam in B12 deficiency E53.8 [place] [address] [address] May, [place] [address] [address] Apr, [place] [address] [address] Apr, [place] [address] [address] Apr, Crohn's disease of both small and large intestine with complication K50.819 [place] [address] [address] Apr, Vitamin B12 deficiency E53.8 [place] [address] [address] Apr, Crohn's disease of both small and large intestine with complication K50.819 and Acute pain of right shoulder M25.511 [place] [address] [address] Mar, Type 2 diabetes mellitus without complic ation E11.9 ; Frequent falls R29.6 and Other chest pain R07.89 [place] [address] [address] Mar, [place] [address] [address] Mar, [place] [address] [address] Mar, Type 2 diabetes mellitus without complic ation E11.9 and Blurry vision, bilateral H53.8 [place] [address] [address] Mar, Vitamin B12 deficiency E53.8 [place] [address] [address] Mar, Crohn's disease of both small and large intestine with complication K50.819 [place] [address] [address] February, Vitamin B12 deficiency E53.8 [place] [address] [address] Jan, Crohn's disease of both small and large intestine with complication K50.819 [place] [address] [address] Jan, Crohn's disease of both small and large intestine with complication K50.819 [facility] [address] [facility] [id number] [place] [address] Jan, Dark brown-colored urine R82 .99 and Acute suppurative otitis media of right ear without spontaneous rupture of tympanic membrane, recurrence not specified H66.001 [place] [address] [address] Jan, Encounter for immunization Z23 [place] [address] [address] Dec, Crohn's disease of both small and large intestine with complication K50.819 and Eustachian tube dysfunction, right H69.81 [place] [address] [address] Dec, [place] [address] [address] Dec, Contusion of right knee, initial encount er S80.01XA [place] [address] [address] Dec, [place] [address] [address] Dec, Acute pain of right knee M25.561 [place] [address] [address] Dec, Iron deficiency anemia due to chronic bl ood loss D50.0 [place] [address] [address] Dec, Hyperlipidemia E78.5 ; Type 2 diabetes m ellitus without complication E11.9 ; Vitamin B12 deficiency E53.8 ; Essential hypertension I10 ; Obstructive sleep apnea on CPAP G47.33 and Periodic limb movement sleep disorder G47.61 [place] [address] [address] Nov, Type 2 diabetes mellitus without complic ation E11.9 ; Vitamin B12 deficiency E53.8 ; Hyperlipidemia E78.5 ; Essential hypertension I10 ; Obstructive sleep apnea on CPAP G47.33 ; Periodic limb movement sleep disorder G47.61 ; Anxiety F41.9 ; Acquired hypothyroidism E03.9 and Chronic tension-type headache, intractable G44.221 [place] [address] [address] Nov, Crohn's disease of both small and large intestine with complication K50.819 [facility] [address] [place] [id number] [place] [address] 10 Nov, 2016 Vitamin B12 deficiency E53.8 [facility] [address] [place] [id number] [place] [address] Oct, [facility] [address] [address] Oct, Vitamin B12 deficiency E53.8 [facility] [address] [place] [id number] [place] [address] Sep, [facility] [address] [address] Sep, Vitamin B12 deficiency E53.8 [facility] [address] [address] Aug, [facility] [address] [address] Aug, Vitamin B12 deficiency E53.8 [facility] [address] [place] [id number] [place] [address] Aug, [facility] [address] [address] 24 Jul, 2016 Elevated ALT measurement R74.0 [place] [address] [place] [id number] [place] [address] Jul, Hematuria R31.9 ; Acute right-sided thor acic back pain M54.6 ; Major depressive disorder, recurrent episode, moderate F33.1 and Elevated ALT measurement R74.0 [facility] [address] [place] [id number] [place] [address] Jul, [facility] [address] [address] 19 Jul, 2016 Elevated ALT measurement R74.0 [facility] [address] [address] 14 Jul, 2016 Iron deficiency anemia due to chronic bl ood loss D50.0 [facility] [address] [address] 14 Jul, 2016 Type 2 diabetes mellitus without complic ation E11.9 ; Acquired hypothyroidism E03.9 ; Iron deficiency anemia due to chronic blood loss D50.0 ; Hyperlipidemia E78.5 and Essential hypertension I10 [place] [address] [address] 26 Jun, 2016 [place] [address] [address] 20 Jun, 2016 Vitamin B12 deficiency E53.8 [place] [address] [address] 16 Jun, 2016 Type 2 diabetes mellitus without complic ation E11.9 ; Acquired hypothyroidism E03.9 ; Iron deficiency anemia due to chronic blood loss D50.0 ; Hyperlipidemia E78.5 ; Essential hypertension I10 ; Chronic tension-type headache, intractable G44.221 ; Pulsatile tinnitus, bilateral H93.13 ; Obstructive sleep apnea on CPAP G47.33 and Major depressive disorder, recurrent episode, moderate F33.1 [place] [address] [address] 16 May, 2016 Vitamin B12 deficiency E53.8 [place] [address] [address] 08 May, 2016 [place] [address] [address] Apr, Vitamin B12 deficiency E53.8 [place] [address] [address] Apr, [address] [address] Mar, Chronic tension-type headache, intractab le G44.221 and Major depressive disorder, recurrent episode, moderate F33.1 [place] [address] [address] 14 Mar, 2016 Vitamin B12 deficiency E53.8 [place] [address] [address] February, [facility] [address] [place] [id number] [place] [address] February, Vitamin B12 deficiency E53.8 [facility] [address] [place] [id number] [place] [address] February, [facility] [address] [place] [id number] [place] [address] Jan, Dysuria R30.0 [facility] [address] [address] Jan, Type 2 diabetes mellitus without complic ation E11.9 and Essential hypertension I10 [facility] [address] [address] 15 Jan, 2016 Chronic diarrhea K52.9 [facility] [address] [address] Jan, [facility] [address] [address] Jan, Chronic diarrhea K52.9 [facility] [address] [place] [id number] [place] [address] Jan, [facility] [address] [address] Jan, Dysuria R30.0 [facility] [address] [place] [id number] [place] [address] Jan, Vitamin B12 deficiency E53.8 [facility] [address] [place] [id number] [place] [address] 07 Jan, 2016 Dysuria R30.0 and Iron deficiency anemia due to chronic blood loss D50.0 [facility] [address] [place] [id number] [place] [address] 05 Jan, 2016 Dysuria R30.0 [facility] [address] [place] [id number] [place] [address] 04 Jan, 2016 [facility] [address] [address] Dec, [place] [address] [place] [id number] [place] [address] 11 Dec, 2015 Iron deficiency anemia due to chronic bl ood loss D50.0 [place] [address] [address] 10 Dec, 2015 Dysuria R30.0 ; Fatigue R53.83 ; Hyperli pidemia E78.5 and Diarrhea R19.7 [place] [address] [address] 09 Dec, 2015 [place] [address] [address] Dec, [place] [address] [address] 10 Nov, 2015 Vitamin B12 deficiency E53.8 [place] [address] [address] Oct, Vitamin B12 deficiency E53.8 [place] [address] [address] Oct, [facility] [address] [facility] [id number] [place] [address] 09 Oct, 2015 Headache R51 [place] [address] [address] 07 Oct, 2015 Essential hypertension I10 ; Type 2 diab etes mellitus without complication E11.9 ; Vitamin B12 deficiency E53.8 ; Acquired hypothyroidism E03.9 ; Iron deficiency anemia due to chronic blood loss D50.0 and Hyperlipidemia E78.5 [place] [address] [address] Sep, Essential hypertension I10 ; Vitamin B12 deficiency E53.8 ; Iron deficiency anemia due to chronic blood loss D50.0 ; Type 2 diabetes mellitus without complication E11.9 ; Hyperlipidemia E78.5 and Acquired hypothyroidism E03.9 [place] [address] [address] Sep, [place] [address] [address] Sep, [facility] [address] [address] Jul, [facility] [address] [address] Jun, [facility] [address] [address] Jun, [facility] [address] [address] Jun, Hyperlipidemia 272.4 ; Iron deficiency a nemia 280.9 ; Hypothyroidism 244.9 ; Diabetes mellitus without mention of complication, type II or unspecified type, not stated as uncontrolled 250.00 and Hypertension 401.9 [facility] [address] [address] Jun, [facility] [address] [address] Jun, [facility] [address] [address] May, Hyperlipidemia 272.4 [facility] [address] [address] May, [facility] [address] [address] May, [facility] [address] [address] Apr, Diabetes mellitus without mention of com plication, type II or unspecified type, not stated as uncontrolled 250.00 ; Hypothyroidism 244.9 ; Hyperlipidemia 272.4 ; Pain in joint, lower leg 719.46 and RUQ pain 789.01 [facility] [address] [address] Mar, Sinusitis 473.9 [facility] [address] [address] Mar, [facility] [address] [place] [id number] [place] [address] Mar, [facility] [address] [id number] [place] [address] Mar, Hematochezia 578.[address] [facility] [address] [id number] [place] [address] February, Sinusitis 473.9 [facility] [address] [place] [id number] [place] [address] February, [facility] [address] [id number] [place] [address] Jan, [facility] [address] [place] [id number] [place] [address] Jan, [facility] [address] [place] [id number] [place] [address] Dec, [facility] [address] [place] [id number] [place] [address] Dec, [facility] [address] [id number] [place] [address] Dec, [facility] [address] [place] [id number] [place] [address] Dec, [facility] [address] [place] [id number] [place] [address] Dec, [facility] [address] [place] [id number] [place] [address] Dec, [facility] [address] [id number] [place] [address] Dec, [facility] [address] [place] [id number] [place] [address] Dec, [facility] [address] [place] [id number] [place] [address] Dec, [facility] [address] [place] [id number] [place] [address] Dec, [facility] [address] [id number] [place] [address] Dec, [facility] [address] [id number] [place] [address] Nov, [facility] [address] [id number] [place] [address] Nov, [facility] [address] [id number] [place] [address] Nov, [facility] [address] [id number] [place] [address] Nov, [facility] [address] [id number] [place] [address] Oct, [facility] [address] [id number] [place] [address] Oct, [facility] [address] [id number] [place] [address] Oct, [facility] [address] [id number] [place] [address] Oct, [facility] [address] [id number] [place] [address] Oct, [facility] [address] [id number] [place] [address] Oct, [facility] [address] [id number] [place] [address] Sep, [facility] [address] [id number] [place] [address] Sep, [facility] [address] [id number] [place] [address] Sep, [facility] [id number] [place] [address] Sep, [facility] [address] [id number] [place] [address] Sep, [facility] [address] [id number] [place] [address] Sep, [facility] [address] [id number] [place] [address] Sep, [facility] [address] [id number] [place] [address] Aug, [facility] [address] [id number] [place] [address] Aug, [facility] [address] [id number] [place] [address] Aug, [facility] [address] [id number] [place] [address] Aug, [facility] [address] [id number] [place] [address] Aug, [facility] [address] [id number] [place] [address] Aug, [facility] [id number] [place] [address] Aug, [facility] [address] [id number] [place] [address] Aug, [facility] [address] [id number] [place] [address] Aug, [facility] [address] [id number] [place] [address] Aug, [facility] [address] [id number] [place] [address] Aug, [facility] [address] [id number] [place] [address] Aug, [facility] [address] [id number] [place] [address] Aug, [facility] [address] [id number] [place] [address] Aug, [facility] [address] [id number] [place] [address] 07 Jul, 2014 [facility] [address] [id number] [place] [address] 07 Jul, 2013 [facility] [address] [facility] [id number] [place] [address] 06 Jul, 2013 [facility] [address] [facility] [id number] [place] [address] 06 Jul, 2013 [facility] [address] [id number] [place] [address] 24 Jun, 2013 [facility] [address] [facility] [id number] [place] [address] 24 Sep, 2013 [facility] [address] [facility] [id number] [place] [address] 23 Jun, 2013 [facility] [address] [id number] [place] [address] 23 Jun, 2013 [facility] [address] [id number] [place] [address] 19 Jun, 2013 [facility] [address] [id number] [place] [address] 19 Jun, 2013 [facility] [address] [facility] [id number] [place] [address] 11 Jun, 2013 [facility] [address] [id number] [place] [address] 11 Jun, 2013 [facility] [address] [id number] [place] [address] 11 Jun, 2013 [facility] [address] [id number] [place] [address] 11 Jun, 2013 [facility] [address] [facility] [id number] [place] [address] 10 Jun, 2013 [facility] [address] [id number] [place] [address] 10 Sep, 2013 [facility] [address] [facility] [id number] [place] [address] 09 Jun, 2013 [facility] [address] [id number] [place] [address] 09 Jun, 2013 [facility] [address] [id number] [facility] [place] [address] May, [facility] [address] [id number] [facility] [place] [address] May, [facility] [address] [facility] [id number] [facility] [place] [address] May, [facility] [address] [facility] [id number] [facility] [place] [address] May, [facility] [address] [id number] [facility] [place] [address] May, [facility] [address] [id number] [facility] [place] [address] May, [facility] [address] [facility] [id number] [place] [address] Apr, [facility] [address] [id number] [place] [address] Apr, [facility] [address] [id number] [facility] [place] [address] Apr, [facility] [address] [id number] [place] [address] Apr, [facility] [address] [facility] [id number] [place] [address] Apr, [facility] [address] [id number] [place] [address] Apr, [facility] [address] [facility] [id number] [place] [address] Apr, [facility] [address] [id number] [place] [address] Apr, [facility] [address] [id number] [place] [address] Apr, [facility] [address] [facility] [id number] [place] [address] Apr, [facility] [address] [id number] [place] [address] Apr, [facility] [address] [id number] [place] [address] Mar, [facility] [address] [facility] [id number] [place] [address] Mar, [facility] [address] [facility] [id number] [place] [address] Mar, [facility] [address] [id number] [place] [address] Mar, [facility] [address] [facility] [id number] [place] [address] February, [facility] [address] [facility] [id number] [place] [address] February, [facility] [address] [id number] [place] [address] Jan, [facility] [address] [id number] [place] [address] Jan, [address] [id number] Jan, [facility] [address] [id number] [place] [address] Jan, [facility] [address] [id number] [place] [address] Jan, [facility] [address] [id number] [place] [address] Jan, [facility] [address] [id number] [place] [address] Jan, [facility] [address] [facility] [id number] [place] [address] Jan, [facility] [address] [id number] [place] [address] Jan, [facility] [address] [id number] [place] [address] Jan, [facility] [address] [id number] [place] [address] Jan, [facility] [address] [id number] [place] [address] Jan, [facility] [address] [id number] [place] [address] Jan, [facility] [address] [id number] [place] [address] Jan, [facility] [address] [id number] [place] [address] Jan, [facility] [address] [id number] [place] [address] Jan, [facility] [address] [id number] [place] [address] Jan, [facility] [address] [id number] [place] [address] Dec, [facility] [address] [id number] [place] [address] Dec, [facility] [address] [id number] [place] [address] Dec, [facility] [address] [id number] [place] [address] Dec, [facility] [address] [id number] [place] [address] Dec, [facility] [address] [id number] [place] [address] Dec, [facility] [address] [id number] [place] [address] Dec, [facility] [address] [id number] [place] [address] Nov, [facility] [address] [id number] [place] [address] Nov, [facility] [address] [id number] [place] [address] Nov, [facility] [address] [id number] [place] [address] Nov, [facility] [address] [id number] [place] [address] Nov, [facility] [address] [id number] [place] [address] Nov, [facility] [address] [id number] [place] [address] Nov, [facility] [address] [id number] [place] [address] Oct, [facility] [address] [id number] [place] [address] Oct, [facility] [address] [id number] [place] [address] Sep, [facility] [address] [id number] [place] [address] Sep, [facility] [id number] [place] [address] Sep, [facility] [address] [id number] [place] [address] Sep, [facility] [address] [id number] [place] [address] Sep, [facility] [address] [id number] [place] [address] Sep, [facility] [address] [id number] [place] [address] Sep, [facility] [address] [id number] [place] [address] Sep, [facility] [id number] [place] [address] Sep, [facility] [address] [id number] [place] [address] Sep, [facility] [id number] [place] [address] Aug, [facility] [address] [id number] [place] [address] Aug, [facility] [id number] [place] [address] Aug, [facility] [address] [id number] [place] [address] Aug, [facility] [id number] [place] [address] Aug, [facility] [id number] [place] [address] Jul, [facility] [id number] [place] [address] Jul, [facility] [address] [id number] [place] [address] Jul, [facility] [address] [id number] [place] [address] Jul, IMMUNIZATIONS No Known Immunizations SOCIAL HISTORY [...]
--- OUTSIDE RECORDS SUMMARY | 2020-03-16 11:50 | XMS REPORT ---
Author Author Swathi Benavides Organization [facility] [place] Address [address] [place] [address] Care Team Providers Care Vp Rheumatology Name Role Phone WIL Benavides Unavailable PROBLEMS Type Condition ICD9-CM Code [id number] Code Onset Dates Condition S tatus SNOMED Code Problem Sensorineural hearing loss of right ear H90.41 Active 29644553 Problem Obstructive sleep apnea on CPAP G47.33 Active 57843238 Problem Periodic limb movement sleep disorder G47.61 Active 680255905 Problem Iron deficiency anemia due to chronic blood loss D 50.0 Active 46021512 Problem MACHUCA (nonalcoholic steatohepatitis) K75.81 Active 079837970 Problem Vitamin B12 deficiency E53.8 Active 453838357 Problem Chronic diarrhea K52.9 Active 236 764922 Problem Vitamin D deficiency E55.9 Active 71654869 Problem BMI 50.0-59.9, adult Z68.43 Active 175996856 Problem Fatty liver K76.0 Active 73224324 7 Problem Anxiety F41.9 Active 80073978 Problem Major depressive disorder, recurrent episode, moderate F33.1 Active 141959853 Problem Chronic tension-type headache, intractable G44.221 Active 558158381 Problem Right upper quadrant pain R10.11 Acti ve 68473233 Problem Frequent falls R29.6 Active 98650 2002 Problem Crohn's disease of both small and large intestin e with complication K50.819 Active 53731728 Problem Type 2 diabetes mellitus with other specified complication E11.69 Active 170008817082 Problem Hyperlipidemia, unspecified E78.5 Ac tive 90621415 Problem Mixed stress and urge urinary incontinence N39.46 Active 598763870 Problem Sinusitis chronic, frontal J32.1 Act katlyn 16336529 Problem Seasonal allergies J30.2 Active 4 70691624 Problem Other chronic pain G89.29 Active 8 0215906 Problem Hyperlipidemia E78.5 Active 29213 004 Problem Bilateral primary osteoarthritis of knee M17.0 Active 483116941 Problem Essential hypertension I10 Active 15002442 Problem Acquired hypothyroidism E03.9 Active 483548880 Problem History of hysterectomy for benign disease Z90.710 Active 029606021 Problem Morbid (severe) obesity due to excess calories E66 .01 Active 098322293 Problem Other cirrhosis of liver K74.69 Activ e 62342762 Problem Portal hypertension K76.6 Active 29554956 ALLERGIES No Information ENCOUNTERS Encounter Location Date Diagnosis [facility] [address] [place] [place] [address] Jun, Pneumonia of right middle lobe due to in fectious organism J18.1 and Cough R05 [facility] [address] [place] [address] Jun, Acute nasopharyngitis J00 [facility] [place] [address] [facility] [id number] [address] [place] [address] May, Iron deficiency anemia due t o [...] Major depressive disorder, recurrent episode, moderate F33.1 [facility] [place] [address] [facility] [id number] [address] [place] [address] May, Hyperlipidemia, unspecified E78.5 ; Other cirrhosis of liver K74.69 and Iron deficiency anemia due to chronic blood loss D50.0 [facility] [place] [address] [facility] [id number] [address] [place] [address] February, [facility] [address] [place] [address] February, Acute recurrent pansinusitis J01.41 [facility] [address] [place] [address] February, Acute maxillary sinusitis, recurrence no t specified J01.00 [place] [address] [place] [id number] [address] [place] [address] Jan, Bilateral primary osteoarthr itis of knee M17.0 ; Morbid obesity E66.01 ; Viral syndrome B34.9 and Atrial dilatation, left I51.7 [place] [address] [place] [id number] [address] [place] [address] Jan, [place] [address] [place] [id number] [place] [address] Dec, Trigeminy R00.8 [place] [address] [place] [id number] [address] [place] [address] Dec, Essential hypertension I10 ; Morbid obesity E66.01 ; Low back pain M54.5 ; Other chronic pain G89.29 and Pain in right knee M25.561 [place] [address] [place] [id number] [address] [place] [address] Nov, [place] [address] [place] [id number] [place] [address] Oct, Palpitations R00.[address] [address] Oct, Encounter for Medicare ann l wellness [...] small and large intestine with complication K50.819 [place] [address] [place] [id number] [address] [place] [address] Oct, [place] [address] [place] [id number] [address] [place] [address] Oct, Crohn's disease of both smal l and large intestine with complication K50.819 [facility] WALK [facility] [address] [place] [id number] [place] [address] Jul, Sinusitis chronic, frontal J 32.1 ; Acute mucoid otitis media of both ears H65.113 ; Seasonal allergies J30.2 and BMI 50.0-59.9, adult Z68.43 [place] [address] [address] Jul, Essential hypertension I10 ; Type 2 diabetes mellitus with other specified complication E11.69 ; BMI 50.0-59.9, adult Z68.43 ; Mixed stress and urge urinary incontinence N39.46 and Mid back pain on right side M54.9 [place] [address] [place] [id number] [address] [place] [address] Jun, Iron deficiency anemia due t o chronic blood loss D50.0 ; Hyperlipidemia E78.5 ; Type 2 diabetes mellitus with other specified complication E11.69 ; Vitamin B12 deficiency E53.8 and Vitamin D deficiency E55.9 [facility] [address] [place] [id number] [place] [address] 14 Jun, 2018 Cough R05 and BMI 50.0-59.9, adult Z68.43 [place] [address] [place] [id number] [address] [place] [address] Jun, [place] [address] [place] [id number] [address] [place] [address] May, Iron deficiency anemia due t o chronic blood loss D50.0 ; Chronic diarrhea K52.9 ; Essential hypertension I10 ; Type 2 diabetes mellitus with other specified complication E11.69 ; Vitamin D deficiency E55.9 ; Colon stricture K56.699 ; Vitamin B12 deficiency E53.8 ; Hyperlipidemia E78.5 and BMI 50.0-59.9, adult Z68.43 [place] [address] [place] [id number] [place] [address] May, [place] [address] [place] [address] [place] [address] Apr, Nonhealing wound of heel S91 .309A and Body mass index (BMI) of 50- 59.9 in adult Z68.43 [facility] [place] [id number] [place] [address] Mar, [facility] [place] [address] [address] Mar, BMI 50.0-59.9, adult Z68.43 ; Flank pain R10.9 and Weight loss counseling, encounter for Z71.3 [place] [address] [address] February, [place] [address] [address] Jan, [place] [address] [address] Jan, [facility] [address] [place] [id number] [place] [address] Jan, Diarrhea due to staphylococc us A04.8 and Diarrhea, unspecified type R19.7 [place] [address] [place] [id number] [place] [address] Jan, Acquired hypothyroidism E03. 9 ; Type 2 diabetes mellitus with other specified complication E11.69 ; Hyperlipidemia E78.5 ; Essential hypertension I10 ; Major depressive disorder, recurrent episode, moderate F33.1 and Vitamin D deficiency E55.9 [place] [address] [place] [id number] [place] [address] Jan, Type 2 diabetes mellitus wit h other specified complication E11.69 ; Hyperlipidemia E78.5 ; Essential hypertension I10 ; Acquired hypothyroidism E03.9 ; Major depressive disorder, recurrent episode, moderate F33.1 ; Vitamin D deficiency E55.9 ; Sinus congestion R09.81 and BMI 50.0-59.9, adult Z68.43 [place] [address] [place] [id number] [place] [address] Dec, [facility] [place] [address] [facility] [id number] [address] [place] [address] Sep, Encounter for immunization Z 23 [facility] [place] [address] [facility] [id number] [address] [place] [address] Sep, [facility] [place] [address] [place] [id number] [place] [address] Sep, Vitamin B12 deficiency E53.8 [place] [address] [facility] [id number] [address] [place] [address] Aug, [place] [address] [address] Aug, BMI 60.0-69.9, adult Z68.44 and Acute non-recurrent maxillary sinusitis J01.00 [place] [address] [place] [id number] [place] [address] Aug, [place] [address] [place] [id number] [place] [address] Aug, Medicare annual wellness vis it, initial Z00.00 ; Screening for breast cancer Z12.31 ; BMI 40.0-44.9, adult Z68.41 and Acquired hypothyroidism E03.9 [place] [address] [place] [id number] [place] [address] Jul, Actinic keratosis L57.0 [place] [address] [place] [id number] [place] [address] Jul, Actinic keratosis L57.0 [place] [address] [place] [id number] [place] [address] Jul, Type 2 diabetes mellitus wit h other specified complication E11.69 ; Actinic keratosis L57.0 and Hypothyroidism, unspecified E03.9 [place] [address] [place] [id number] [address] [place] [address] Jul, [place] [address] [address] Jul, [place] [address] [address] Jul, Vitamin B12 deficiency E53.8 [place] [address] [address] Jun, Acquired hypothyroidism E03. 9 and Chronic tension-type headache, intractable G44.221 [place] [address] [address] Jun, Back muscle spasm M62.830 an d BMI 50.0-59.9, adult Z68.43 [place] [address] [address] Jun, Vitamin B12 deficiency E53.8 [place] [address] [address] Jun, Crohn's disease of both smal l and large intestine with complication K50.819 [place] [address] [address] Jun, Crohn's disease of both smal l and large intestine with complication K50.819 [place] [address] [address] May, Hyperlipidemia E78.5 ; Anxie ty F41.9 and Essential hypertension I10 [place] [address] [address] May, [place] [address] [address] May, Encounter for immunization Z 23 and Vitamin B12 deficiency E53.8 [place] [address] [place] [id number] [place] [address] May, [place] [address] [address] Apr, [place] [id number] [facility] [id number] [address] [place] [address] Apr, [place] [address] [facility] [id number] [address] [place] [address] Apr, Crohn's disease of both smal l and large intestine with complication K50.819 [place] [address] [facility] [id number] [address] [place] [address] Apr, Vitamin B12 deficiency E53.8 [place] [address] [facility] [id number] [address] [place] [address] Apr, Crohn's disease of both smal l and large intestine with complication K50.819 and Acute pain of right shoulder M25.511 [place] [address] [facility] [id number] [address] [place] [address] Mar, Type 2 diabetes mellitus wit hout complication E11.9 ; Frequent falls R29.6 and Other chest pain R07.89 [place] [address] [facility] [id number] [address] [place] [address] Mar, [place] [address] [facility] [id number] [address] [place] [address] Mar, [place] [address] [facility] [id number] [address] [place] [address] Mar, Type 2 diabetes mellitus wit hout complication E11.9 and Blurry vision, bilateral H53.8 [place] [address] [facility] [id number] [address] [place] [address] Mar, Vitamin B12 deficiency E53.8 [place] [address] [facility] [id number] [address] [place] [address] Mar, Crohn's disease of both smal l and large intestine with complication K50.819 [place] [address] [facility] [id number] [address] [place] [address] February, Vitamin B12 deficiency E53.8 [place] [address] [facility] [id number] [address] [place] [address] Jan, Crohn's disease of both smal l and large intestine with complication K50.819 [facility] [place] [address] [facility] [id number] [address] [place] [address] Jan, Crohn's disease of both smal l and large intestine with complication K50.819 [facility] [address] [facility] [id number] [address] [place] [address] Jan, Dark brown-colored urine R82 .99 and Acute suppurative otitis media of right ear without spontaneous rupture of tympanic membrane, recurrence not specified H66.001 [facility] [place] [address] [place] [id number] [address] [place] [address] Jan, Encounter for immunization Z 23 [place] [address] [facility] [id number] [address] [place] [address] Dec, Crohn's disease of both smal l and large intestine with complication K50.819 and Eustachian tube dysfunction, right H69.81 [facility] [place] [address] [facility] [id number] [address] [place] [address] Dec, [place] [address] [facility] [id number] [address] [place] [address] Dec, Contusion of right knee, ini tial encounter S80.01XA [place] [address] [place] [id number] [place] [address] Dec, [place] [address] [facility] [id number] [address] [place] [address] Dec, Acute pain of right knee M25 .561 [place] [address] [place] [id number] [place] [address] Dec, Iron deficiency anemia due t o chronic blood loss D50.0 [place] [address] [place] [id number] [address] [place] [address] Dec, Hyperlipidemia E78.5 ; Type 2 diabetes mellitus without complication E11.9 ; Vitamin B12 deficiency E53.8 ; Essential hypertension I10 ; Obstructive sleep apnea on CPAP G47.33 and Periodic limb movement sleep disorder G47.61 [facility] [place] [address] [facility] [id number] [address] [place] [address] 22 Nov, 2016 Type 2 diabetes mellitus wit hout complication E11.9 ; Vitamin B12 deficiency E53.8 ; Hyperlipidemia E78.5 ; Essential hypertension I10 ; Obstructive sleep apnea on CPAP G47.33 ; Periodic limb movement sleep disorder G47.61 ; Anxiety F41.9 ; Acquired hypothyroidism E03.9 and Chronic tension-type headache, intractable G44.221 [place] [address] [facility] [id number] [address] [place] [address] 10 Nov, 2016 Crohn's disease of both smal l and large intestine with complication K50.819 [place] [address] [facility] [id number] [address] [place] [address] Nov, Vitamin B12 deficiency E53.8 [place] [address] [facility] [id number] [address] [place] [address] Oct, [place] [address] [facility] [id number] [address] [place] [address] Oct, Vitamin B12 deficiency E53.8 [place] [address] [facility] [id number] [address] [place] [address] Sep, [place] [address] [facility] [id number] [address] [place] [address] Sep, Vitamin B12 deficiency E53.8 [place] [address] [facility] [id number] [address] [place] [address] Aug, [place] [address] [facility] [id number] [address] [place] [address] 14 Aug, 2016 Vitamin B12 deficiency E53.8 [place] [address] [facility] [id number] [address] [place] [address] Aug, [place] [address] [facility] [id number] [address] [place] [address] Jul, Elevated ALT measurement R74 .0 [place] [address] [address] Jul, Hematuria R31.9 ; Acute righ t-sided thoracic back pain M54.6 ; Major depressive disorder, recurrent episode, moderate F33.1 and Elevated ALT measurement R74.0 [place] [address] [address] Jul, [place] [address] [address] Jul, Elevated ALT measurement R74 .0 [place] [address] [address] Jul, Iron deficiency anemia due t o chronic blood loss D50.0 [place] [address] [address] Jul, Type 2 diabetes mellitus wit hout complication E11.9 ; Acquired hypothyroidism E03.9 ; Iron deficiency anemia due to chronic blood loss D50.0 ; Hyperlipidemia E78.5 and Essential hypertension I10 [place] [address] [place] [id number] [place] [address] Jun, [place] [address] [place] [id number] [place] [address] Jun, Vitamin B12 deficiency E53.8 [place] [address] [address] 16 Jun, 2016 Type 2 diabetes mellitus wit hout complication E11.9 ; Acquired hypothyroidism E03.9 ; Iron deficiency anemia due to chronic blood loss D50.0 ; Hyperlipidemia E78.5 ; Essential hypertension I10 ; Chronic tension-type headache, intractable G44.221 ; Pulsatile tinnitus, bilateral H93.13 ; Obstructive sleep apnea on CPAP G47.33 and Major depressive disorder, recurrent episode, moderate F33.1 [place] [address] [place] [id number] [place] [address] May, Vitamin B12 deficiency E53.8 [facility] [place] [address] [facility] [id number] [address] [place] [address] 08 May, 2016 [facility] [place] [address] [facility] [id number] [address] [place] [address] Apr, Vitamin B12 deficiency E53.8 [facility] [place] [address] [facility] [id number] [address] [place] [address] Apr, [facility] [place] [address] [facility] [id number] [address] [place] [address] Mar, Chronic tension-type headach e, intractable G44.221 and Major depressive disorder, recurrent episode, moderate F33.1 [facility] [place] [address] [facility] [id number] [address] [place] [address] Mar, Vitamin B12 deficiency E53.8 [facility] [place] [address] [place] [id number] [address] [place] [address] February, [facility] [place] [address] [facility] [id number] [address] [place] [address] February, Vitamin B12 deficiency E53.8 [facility] [place] [address] [facility] [id number] [address] [place] [address] February, [facility] [place] [address] [facility] [id number] [address] [place] [address] Jan, Dysuria R30.0 [facility] [place] [address] [facility] [id number] [address] [place] [address] 22 Jan, 2016 Type 2 diabetes mellitus wit hout complication E11.9 and Essential hypertension I10 [facility] [place] [address] [facility] [id number] [address] [place] [address] 15 Jan, 2016 Chronic diarrhea K52.9 [facility] [place] [address] [facility] [id number] [address] [place] [address] 13 Jan, 2016 [facility] [place] [address] [place] [id number] [place] [address] Jan, Chronic diarrhea K52.9 [facility] [place] [id number] [place] [address] Jan, [facility] [place] [address] [facility] [id number] [address] [place] [address] Jan, Dysuria R30.0 [facility] [place] [address] [address] Jan, Vitamin B12 deficiency E53.8 [facility] [place] [address] [address] 07 Jan, 2016 Dysuria R30.0 and Iron defic iency anemia due to chronic blood loss D50.0 [place] [address] [place] [id number] [address] [place] [address] 05 Jan, 2016 Dysuria R30.0 [place] [address] [address] Jan, [facility] [place] [address] [place] [id number] [place] [address] 15 Dec, 2015 [place] [address] [address] Dec, Iron deficiency anemia due t o chronic blood loss D50.0 [place] [address] [place] [id number] [place] [address] 10 Dec, 2015 Dysuria R30.0 ; Fatigue R53. 83 ; Hyperlipidemia E78.5 and Diarrhea R19.7 [place] [id number] [place] [address] Dec, [place] [address] [address] 02 Dec, 2015 [facility] [place] [address] [place] [id number] [address] [place] [address] 10 Nov, 2015 Vitamin B12 deficiency E53.8 [place] [address] [address] Oct, Vitamin B12 deficiency E53.8 [facility], [place], [facility] [address] [facility] [id number] [address] [place] [id number] 12 Oct, 2015 [facility] [address] [facility] [id number] [address] [place] [phone] 09 Oct, 2015 Headache R51 [facility], [place], [facility] [address] [place] [id number] [address] [place] [id number] 07 Oct, 2015 Essential hypertension I10 ; Type 2 diabetes mellitus without complication E11.9 ; Vitamin B12 deficiency E53.8 ; Acquired hypothyroidism E03.9 ; Iron deficiency anemia due to chronic blood loss D50.0 and Hyperlipidemia E78.5 [place] [address] [address] [place] [id number] [address] [place] [id number] 17 Sep, 2015 Essential hypertension I10 ; Vitamin B12 deficiency E53.8 ; Iron deficiency anemia due to chronic blood loss D50.0 ; Type 2 diabetes mellitus without complication E11.9 ; Hyperlipidemia E78.5 and Acquired hypothyroidism E03.9 [facility] [place] [address] [id number] [address] [place] [address] Sep, [facility] [place] [address] [address] Sep, [facility] [place] [address] [id number] [address] [place] [id number] 05 Jul, 2015 [facility] [place] [address] [id number] [address] [place] [address] Jun, [facility] [place] [address] [id number] [address] [place] [address] 18 Jun, 2015 [facility] [place] [address] [address] 15 Jun, 2015 Hyperlipidemia 272.4 ; Iron deficiency anemia 280.9 ; Hypothyroidism 244.9 ; Diabetes mellitus without mention of complication, type II or unspecified type, not stated as uncontrolled 250.00 and Hypertension 401.9 [facility] [place] [address] [address] Jun, [facility] [place] [address] [facility] [id number] [address] [place] [address] Jun, [facility] [place] [address] [facility] [id number] [address] [place] [address] May, Hyperlipidemia 272.4 [facility] [place] [address] [facility] [id number] [address] [place] [id number] May, [facility] [place] [id number] [place] [address] May, [facility] [place] [address] [facility] [id number] [place] [id number] Apr, Diabetes mellitus without me ntion of complication, type II or unspecified type, not stated as uncontrolled 250.00 ; Hypothyroidism 244.9 ; Hyperlipidemia 272.4 ; Pain in joint, lower leg 719.46 and RUQ pain 789.01 [facility] [place] [address] [id number] [address] [place] [address] Mar, Sinusitis 473.9 [facility] [place] [address] [facility] [id number] [address] [place] [address] Mar, [facility] [place] [id number] [place] [id number] Mar, [facility] [place] [address] [facility] [id number] [address] [place] [address] Mar, Hematochezia 578.1 [facility] [place] [address] [facility] [id number] [address] [place] [id number] February, Sinusitis 473.9 [facility] [place] [address] [id number] [address] [place] [phone] February, [facility] [place] [address] [facility] [id number] [address] [place] [id number] Jan, [facility] [place] [address] [id number] [address] [place] [phone] Jan, [facility] [address] [id number] [address] [place] [address], [place] [address] Dec, [facility] [address] [id number] [address] [place] [address], [place] [address] Dec, [facility] [address] [id number] [address] [place] [address], [place] [address] Dec, [facility] [place] [address] [id number] [address] [place] [address], [place] [address] Dec, [facility] [address] [id number] [address] [place] [address], [place] [address] Dec, [facility] [place] [address] [id number] [address] [place] [address], [place] [address] Dec, [facility] [address] [id number] [address] [place] [address], [place] [address] Dec, [facility] [address] [id number] [address] [place] [address], [place] [address] Dec, [facility] [address] [id number] [address] [place] [address], [place] [address] Dec, [facility] [address] [id number] [address] [place] [address], [place] [address] Dec, [facility] [place] [address] [id number] [address] [place] [address], [place] [address] Dec, [facility] [address] [id number] [address] [place] [address], [place] [address] Nov, [facility] [address] [id number] [address] [place] [address], [place] [address] Nov, [facility] [address] [id number] [address] [place] [address], [place] [address] Nov, [facility] [place] [address] [id number] [address] [place] [address], [place] [address] Nov, [facility] [place] [address] [id number] [address] [place] [address], [place] [address] Oct, [facility] [address] [id number] [address] [place] [address], [place] [address] Oct, [facility] [address] [id number] [address] [place] [address], [place] [address] Oct, [facility] [address] [id number] [address] [place] [address], [place] [address] Oct, [facility] [address] [id number] [address] [place] [address], [place] [address] Oct, [facility] [address] [id number] [address] [place] [address], [place] [address] Oct, [facility] [address] [id number] [address] [place] [address], [place] [address] Sep, [facility] [address] [id number] [address] [place] [address], [place] [address] Sep, [facility] [address] [id number] [address] [place] [address], [place] [address] Sep, [facility] [address] [id number] [address] [place] [address], [place] [address] Sep, [facility] [address] [id number] [address] [place] [address], [place] [address] Sep, [facility] [address] [id number] [address] [place] [address], [place] [address] Sep, [facility] [address] [id number] [address] [place] [address], [place] [address] Sep, [facility] [address] [id number] [address] [place] [address], [place] [address] Aug, [facility] [address] [id number] [address] [place] [address], [place] [address] Aug, [facility] [address] [id number] [address] [place] [address], [place] [address] Aug, [facility] [place] [facility] [address] [id number] [address] [place] [address], [place] [address] Aug, [facility] [place] [address] [id number] [address] [place] [address], [place] [address] Aug, [facility] [address] [id number] [address] [place] [address], [place] [address] Aug, [facility] [place] [address] [id number] [address] [place] [address], [place] [address] Aug, [facility] [place] [address] [id number] [address] [place] [address], [place] [address] Aug, [facility] [place] [address] [id number] [address] [place] [address], [place] [address] Aug, [facility] [place] [address] [id number] [address] [place] [address], [place] [address] Aug, [facility] [address] [id number] [address] [place] [address], [place] [address] Aug, [facility] [place] [address] [id number] [address] [place] [address], [place] [address] Aug, [facility] [place] [address] [id number] [address] [place] [address], [place] [address] Aug, [facility] [place] [address] [id number] [address] [place] [address], [place] [address] Aug, [facility] [address] [id number] [address] [place] [address], [place] [address] Jul, [facility] [address] [id number] [address] [place] [address], [place] [address] Jul, [facility] [address] [id number] [address] [place] [address], [place] [address] Jul, [facility] [address] [id number] [address] [place] [address], [place] [address] Jul, [facility] [address] [id number] [address] [place] [address], [place] [address] 24 Jun, 2013 [facility] [address] [id number] [address] [place] [address], [place] [address] 24 Jun, 2013 [facility] [address] [id number] [address] [place] [address], [place] [address] 23 Jun, 2013 [facility] [address] [id number] [address] [place] [address], [place] [address] 23 Jun, 2013 [facility] [address] [id number] [address] [place] [address], [place] [address] 19 Jun, 2013 [facility] [address] [id number] [address] [place] [address], [place] [address] 19 Jun, 2013 [facility] [address] [id number] [address] [place] [address], [place] [address] 11 Jun, 2013 [facility] [address] [id number] [address] [place] [address], [place] [address] 11 Jun, 2013 [facility] [address] [id number] [address] [place] [address], [place] [address] 11 Jun, 2013 [facility] [address] [id number] [address] [place] [address], [place] [address] 11 Jun, 2013 [facility] [address] [id number] [address] [place] [address], [place] [address] 10 Jun, 2013 [facility] [address] [id number] [address] [place] [address], [place] [address] 10 Jun, 2013 [facility] [address] [id number] [address] [place] [address], [place] [address] 09 Jun, 2013 [facility] [address] [id number] [address] [place] [address], [place] [address] 09 Jun, 2013 [facility] [address] [id number] [address] [place] [address], [place] [address] 14 May, 2014 [facility] [place] [address] [id number] [address] [place] [address], [place] [address] 14 May, 2014 [facility] [place] [address] [id number] [facility] [place] [address] May, [facility] [address] [id number] [facility] [place] [address] May, [facility] [address] [id number] [facility] [place] [address] May, [facility] [address] [id number] [address] [place] [address], [place] [address] May, [facility] [address] [id number] [facility] [place] [address] Apr, [facility] [address] [id number] [address] [place] [address], [place] [address] Apr, [facility] [address] [id number] [address] [place] [address], [place] [address] Apr, [facility] [address] [id number] [address] [place] [address], [place] [address] Apr, [facility] [address] [id number] [address] [place] [address], [place] [address] Apr, [facility] [address] [id number] [address] [place] [address], [place] [address] Apr, [facility] [address] [id number] [address] [place] [address], [place] [address] Apr, [facility] [address] [id number] [address] [place] [address], [place] [address] Apr, [facility] [address] [id number] [address] [place] [address], [place] [address] Apr, [facility] [address] [id number] [address] [place] [address], [place] [address] Apr, [facility] [address] [id number] [address] [place] [address], [place] [address] Apr, [facility] [address] [id number] [address] [place] [address], [place] [address] Mar, [facility] [address] [id number] [address] [place] [address], [place] [address] Mar, [facility] [address] [id number] [address] [place] [address], [place] [address] Mar, [facility] [address] [id number] [address] [place] [address], [place] [address] Mar, [facility] [address] [id number] [address] [place] [address], [place] [address] February, [facility] [address] [id number] [address] [place] [address], [place] [address] February, [facility] [address] [id number] [address] [place] [address], [place] [address] Jan, [facility] [address] [id number] [address] [place] [address], [place] [address] Jan, [address] [id number] Jan, [facility] [address] [id number] [address] [place] [address], [place] [address] Jan, [facility] [address] [id number] [address] [place] [address], [place] [address] Jan, [facility] [address] [id number] [address] [place] [address], [place] [address] Jan, [facility] [address] [id number] [address] [place] [address], [place] [address] Jan, [facility] [address] [id number] [address] [place] [address], [place] [address] Jan, [facility] [address] [id number] [address] [place] [address], [place] [address] Jan, [facility] [address] [id number] [address] [place] [address], [place] [address] Jan, [facility] [address] [id number] [address] [place] [address], [place] [address] Jan, [facility] [address] [id number] [facility] [place] [address] Jan, [facility] [address] [id number] [address] [place] [address], [place] [address] Jan, [facility] [address] [id number] [facility] [place] [address] Jan, [facility] [address] [id number] [address] [place] [address], [place] [address] Jan, [facility] [address] [id number] [address] [place] [address], [place] [address] Jan, [facility] [address] [id number] [address] [place] [address], [place] [address] Jan, [facility] [address] [id number] [address] [place] [address], [place] [address] Dec, [facility] [address] [id number] [address] [place] [address], [place] [address] Dec, [facility] [address] [id number] [address] [place] [address], [place] [address] Dec, [facility] [address] [id number] [address] [place] [address], [place] [address] Dec, [facility] [address] [id number] [address] [place] [address], [place] [address] Dec, [facility] [address] [id number] [address] [place] [address], [place] [address] Dec, [facility] [address] [id number] [address] [place] [address], [place] [address] Dec, [facility] [address] [id number] [address] [place] [address], [place] [address] Nov, [facility] [address] [id number] [address] [place] [address], [place] [address] Nov, [facility] [address] [id number] [address] [address] Nov, [facility] [address] [id number] [address] [place] [address], [place] [address] Nov, [facility] [address] [id number] [address] [place] [address], [place] [address] Nov, [facility] [address] [id number] [address] [place] [address], [place] [address] Nov, [facility] [address] [id number] [address] [place] [address], [place] [address] Nov, [facility] [address] [id number] [address] [place] [address], [place] [address] Oct, [facility] [address] [id number] [address] [place] [address], [place] [address] Oct, [facility] [address] [id number] [address] [place] [address], [place] [address] Sep, [facility] [address] [id number] [address] [place] [address], [place] [address] Sep, [facility] [address] [id number] [address] [place] [address], [place] [address] Sep, [facility] [address] [id number] [address] [place] [address], [place] [address] Sep, [facility] [address] [id number] [address] [place] [address], [place] [address] Sep, [facility] [address] [id number] [address] [place] [address], [place] [address] Sep, [facility] [address] [id number] [address] [place] [address], [place] [address] Sep, [facility] [address] [id number] [address] [place] [address], [place] [address] Sep, [facility] [address] [id number] [address] [place] [address], [place] [address] Sep, [facility] [place] [address] [id number] [address] [place] [address] Sep, [facility] [place] [address] [id number] [address] [place] [address] Aug, [facility] [place] [address] [id number] [address] [place] [address] Aug, [facility] [place] [address] [id number] [address] [place] [address] Aug, [facility] [place] [address] [id number] [address] [place] [id number] Aug, [facility] [place] [address] [id number] [address] [place] [address] Aug, [facility], [place], [facility] [address] [id number] [address] [place] [id number] Jul, [facility], [place], [facility] [address] [id number] [address] [place] [id number] Jul, [facility], [place], [facility] [address] [id number] [address] [place] [id number] Jul, [facility], [place], [facility] [address] [id number] [address] [place] [id number] Jul, IMMUNIZATIONS No Known Immunizations SOCIAL HISTORY Never Assessed REASON FOR VISIT PLAN OF CARE VITAL SIGNS MEDICATIONS No Known Medications RESULTS No Results PROCEDURES No Known [...]
--- OUTSIDE RECORDS SUMMARY | 2020-03-16 11:51 | XMS REPORT ---
Author Author Swathi Benavides Organization [facility] Address [address] [place] [address] Care Team Providers Care Band Director Name Role Phone WIL Benavides Unavailable PROBLEMS Type Condition ICD9-CM Code BQH32-TL Code Onset Dates Condition S tatus SNOMED Code Problem Sensorineural hearing loss of right ear H90.41 Active 26475038 Problem Obstructive sleep apnea on CPAP G47.33 Active 17018680 Problem Periodic limb movement sleep disorder G47.61 Active 370207176 Problem Iron deficiency anemia due to chronic blood loss D 50.0 Active 78903667 Problem MACHUCA (nonalcoholic steatohepatitis) K75.81 Active 113078982 Problem Vitamin B12 deficiency E53.8 Active 180993123 Problem Chronic diarrhea K52.9 Active 236 464280 Problem Vitamin D deficiency E55.9 Active 49526498 Problem BMI 50.0-59.9, adult Z68.43 Active 697425140 Problem Fatty liver K76.0 Active 79200113 7 Problem Anxiety F41.9 Active 49171253 Problem Major depressive disorder, recurrent episode, moderate F33.1 Active 461338124 Problem Chronic tension-type headache, intractable G44.221 Active 768967840 Problem Right upper quadrant pain R10.11 Acti ve 90998747 Problem Frequent falls R29.6 Active 80650 2002 Problem Crohn's disease of both small and large intestin e with complication K50.819 Active 62914913 Problem Type 2 diabetes mellitus with other specified complication E11.69 Active 963901185910 Problem Hyperlipidemia, unspecified E78.5 Ac tive 92485456 Problem Mixed stress and urge urinary incontinence N39.46 Active 457759131 Problem Sinusitis chronic, frontal J32.1 Act katlyn 85680678 Problem Seasonal allergies J30.2 Active 4 31200239 Problem Other chronic pain G89.29 Active 8 3334448 Problem Hyperlipidemia E78.5 Active 77381 004 Problem Bilateral primary osteoarthritis of knee M17.0 Active 778672815 Problem Essential hypertension I10 Active 06174301 Problem Acquired hypothyroidism E03.9 Active 668837750 Problem History of hysterectomy for benign disease Z90.710 Active 787388577 Problem Morbid (severe) obesity due to excess calories E66 .01 Active 200938495 Problem Other cirrhosis of liver K74.69 Activ e 50860810 Problem Portal hypertension K76.6 Active 98956383 ALLERGIES No Information ENCOUNTERS Encounter Location Date Diagnosis [facility] IN [facility] [address] [facility] [place] [address] Jun, Pneumonia of right middle lobe due to in fectious organism J18.1 and Cough R05 [facility] [address] [facility] [place] [address] Jun, Acute nasopharyngitis J00 [facility] [address] [facility] [id number] [address] [place] [address] May, Iron deficiency anemia due t o [...] Major depressive disorder, recurrent episode, moderate F33.1 [facility] [address] [facility] [id number] [address] [place] [address] May, Hyperlipidemia, unspecified E78.5 ; Other cirrhosis of liver K74.69 and Iron deficiency anemia due to chronic blood loss D50.0 [facility] [address] [facility] [id number] [address] [place] [address] February, [facility] [address] [facility] [place] [address] February, Acute recurrent pansinusitis J01.41 [facility] [address] [facility] [place] [address] February, Acute maxillary sinusitis, recurrence no t specified J01.00 [place] [address] [place] [id number] [address] [place] [address] Jan, Bilateral primary osteoarthr itis of knee M17.0 ; Morbid obesity E66.01 ; Viral syndrome B34.9 and Atrial dilatation, left I51.7 [place] [address] [place] [id number] [address] [place] [address] Jan, [place] [address] [place] [id number] [place] [address] Dec, Trigeminy R00.8 [place] [address] [place] [id number] [address] [place] [address] Dec, Essential hypertension I10 ; Morbid obesity E66.01 ; Low back pain M54.5 ; Other chronic pain G89.29 and Pain in right knee M25.561 [place] [address] [place] [id number] [address] [place] [address] Nov, [facility] [address] [place] [id number] [place] [address] Oct, Palpitations R00.[address] [address] Oct, Encounter for Medicare ann l wellness [...] small and large intestine with complication K50.819 [place] [address] [place] [id number] [address] [place] [address] Oct, [place] [address] [place] [id number] [address] [place] [address] Oct, Crohn's disease of both smal l and large intestine with complication K50.819 [facility] [address] [place] [id number] [address] [place] [address] Jul, Sinusitis chronic, frontal J 32.1 ; Acute mucoid otitis media of both ears H65.113 ; Seasonal allergies J30.2 and BMI 50.0-59.9, adult Z68.43 [place] [address] [address] Jul, Essential hypertension I10 ; Type 2 diabetes mellitus with other specified complication E11.69 ; BMI 50.0-59.9, adult Z68.43 ; Mixed stress and urge urinary incontinence N39.46 and Mid back pain on right side M54.9 [place] [address] [place] [id number] [address] [place] [address] Jun, Iron deficiency anemia due t o chronic blood loss D50.0 ; Hyperlipidemia E78.5 ; Type 2 diabetes mellitus with other specified complication E11.69 ; Vitamin B12 deficiency E53.8 and Vitamin D deficiency E55.9 [facility] IN [facility] [address] [place] [id number] [address] [place] [address] 14 Jun, 2018 Cough R05 and BMI 50.0-59.9, adult Z68.43 [place] [address] [place] [id number] [address] [place] [address] Jun, [place] [address] [place] [id number] [address] [place] [address] May, Iron deficiency anemia due t o chronic blood loss D50.0 ; Chronic diarrhea K52.9 ; Essential hypertension I10 ; Type 2 diabetes mellitus with other specified complication E11.69 ; Vitamin D deficiency E55.9 ; Colon stricture K56.699 ; Vitamin B12 deficiency E53.8 ; Hyperlipidemia E78.5 and BMI 50.0-59.9, adult Z68.43 [place] [address] [place] [id number] [address] [place] [address] May, [place] [address] [place] [address] [place] [address] Apr, Nonhealing wound of heel S91 .309A and Body mass index (BMI) of 50- 59.9 in adult Z68.43 [facility] [address] [place] [address] Mar, [facility] [address] [address] Mar, BMI 50.0-59.9, adult Z68.43 ; Flank pain R10.9 and Weight loss counseling, encounter for Z71.3 [place] [address] [address] February, [place] [address] [address] Jan, [place] [address] [address] Jan, [facility] [address] [place] [id number] [address] [place] [address] Jan, Diarrhea due to staphylococc us A04.8 and Diarrhea, unspecified type R19.7 [place] [address] [place] [id number] [address] [place] [address] Jan, Acquired hypothyroidism E03. 9 ; Type 2 diabetes mellitus with other specified complication E11.69 ; Hyperlipidemia E78.5 ; Essential hypertension I10 ; Major depressive disorder, recurrent episode, moderate F33.1 and Vitamin D deficiency E55.9 [place] [address] [place] [id number] [address] [place] [address] Jan, Type 2 diabetes mellitus wit h other specified complication E11.69 ; Hyperlipidemia E78.5 ; Essential hypertension I10 ; Acquired hypothyroidism E03.9 ; Major depressive disorder, recurrent episode, moderate F33.1 ; Vitamin D deficiency E55.9 ; Sinus congestion R09.81 and BMI 50.0-59.9, adult Z68.43 [place] [address] [place] [id number] [place] [address] Dec, [facility] [address] [facility] [id number] [address] [place] [address] Sep, Encounter for immunization Z 23 [facility] [address] [facility] [id number] [address] [place] [address] Sep, [facility] [address] [place] [id number] [address] [place] [address] Sep, Vitamin B12 deficiency E53.8 [place] [address] [facility] [id number] [address] [place] [address] Aug, [place] [address] [address] Aug, BMI 60.0-69.9, adult Z68.44 and Acute non-recurrent maxillary sinusitis J01.00 [place] [address] [place] [id number] [address] [place] [address] Aug, [place] [address] [place] [id number] [address] [place] [address] Aug, Medicare annual wellness vis it, initial Z00.00 ; Screening for breast cancer Z12.31 ; BMI 40.0-44.9, adult Z68.41 and Acquired hypothyroidism E03.9 [place] [address] [place] [id number] [address] [place] [address] Jul, Actinic keratosis L57.0 [place] [address] [place] [id number] [address] [place] [address] Jul, Actinic keratosis L57.0 [place] [address] [place] [id number] [address] [place] [address] Jul, Type 2 diabetes mellitus wit h other specified complication E11.69 ; Actinic keratosis L57.0 and Hypothyroidism, unspecified E03.9 [place] [address] [place] [id number] [address] [place] [address] Jul, [place] [address] [address] Jul, [place] [address] [address] Jul, Vitamin B12 deficiency E53.8 [place] [address] [address] Jun, Acquired hypothyroidism E03. 9 and Chronic tension-type headache, intractable G44.221 [place] [address] [address] Jun, Back muscle spasm M62.830 an d BMI 50.0-59.9, adult Z68.43 [place] [address] [address] Jun, Vitamin B12 deficiency E53.8 [place] [address] [address] Jun, Crohn's disease of both smal l and large intestine with complication K50.819 [place] [address] [address] Jun, Crohn's disease of both smal l and large intestine with complication K50.819 [place] [address] [address] May, Hyperlipidemia E78.5 ; Anxie ty F41.9 and Essential hypertension I10 [place] [address] [address] May, [place] [address] [address] May, Encounter for immunization Z 23 and Vitamin B12 deficiency E53.8 [place] [address] [place] [id number] [address] [place] [address] May, [place] [address] [address] Apr, [place] [address] [facility] [id number] [address] [place] [address] Apr, [place] [address] [facility] [id number] [address] [place] [address] Apr, Crohn's disease of both smal l and large intestine with complication K50.819 [place] [address] [facility] [id number] [address] [place] [address] Apr, Vitamin B12 deficiency E53.8 [place] [address] [facility] [id number] [address] [place] [address] Apr, Crohn's disease of both smal l and large intestine with complication K50.819 and Acute pain of right shoulder M25.511 [place] [address] [facility] [id number] [address] [place] [address] Mar, Type 2 diabetes mellitus wit hout complication E11.9 ; Frequent falls R29.6 and Other chest pain R07.89 [place] [address] [facility] [id number] [address] [place] [address] Mar, [place] [address] [facility] [id number] [address] [place] [address] Mar, [place] [address] [facility] [id number] [address] [place] [address] Mar, Type 2 diabetes mellitus wit hout complication E11.9 and Blurry vision, bilateral H53.8 [place] [address] [facility] [id number] [address] [place] [address] Mar, Vitamin B12 deficiency E53.8 [place] [address] [facility] [id number] [address] [place] [address] Mar, Crohn's disease of both smal l and large intestine with complication K50.819 [place] [address] [facility] [id number] [address] [place] [address] February, Vitamin B12 deficiency E53.8 [place] [address] [facility] [id number] [address] [place] [address] Jan, Crohn's disease of both smal l and large intestine with complication K50.819 [facility] [address] [facility] [id number] [address] [place] [address] Jan, Crohn's disease of both smal l and large intestine with complication K50.819 [facility] [address] [facility] [id number] [address] [place] [address] Jan, Dark brown-colored urine R82 .99 and Acute suppurative otitis media of right ear without spontaneous rupture of tympanic membrane, recurrence not specified H66.001 [facility] [address] [place] [id number] [address] [place] [address] Jan, Encounter for immunization Z 23 [place] [address] [facility] [id number] [address] [place] [address] Dec, Crohn's disease of both smal l and large intestine with complication K50.819 and Eustachian tube dysfunction, right H69.81 [facility] [address] [facility] [id number] [address] [place] [address] Dec, [place] [address] [facility] [id number] [address] [place] [address] Dec, Contusion of right knee, ini tial encounter S80.01XA [place] [address] [place] [id number] [address] [place] [address] Dec, [place] [address] [facility] [id number] [address] [place] [address] Dec, Acute pain of right knee M25 .561 [place] [address] [place] [id number] [address] [place] [address] Dec, Iron deficiency anemia due t o chronic blood loss D50.0 [place] [address] [place] [id number] [address] [place] [address] Dec, Hyperlipidemia E78.5 ; Type 2 diabetes mellitus without complication E11.9 ; Vitamin B12 deficiency E53.8 ; Essential hypertension I10 ; Obstructive sleep apnea on CPAP G47.33 and Periodic limb movement sleep disorder G47.61 [facility] [address] [facility] [id number] [address] [place] [address] 22 Nov, 2016 Type 2 diabetes mellitus wit hout complication E11.9 ; Vitamin B12 deficiency E53.8 ; Hyperlipidemia E78.5 ; Essential hypertension I10 ; Obstructive sleep apnea on CPAP G47.33 ; Periodic limb movement sleep disorder G47.61 ; Anxiety F41.9 ; Acquired hypothyroidism E03.9 and Chronic tension-type headache, intractable G44.221 [place] [address] [facility] [id number] [address] [place] [address] 10 Nov, 2016 Crohn's disease of both smal l and large intestine with complication K50.819 [place] [address] [facility] [id number] [address] [place] [address] Nov, Vitamin B12 deficiency E53.8 [place] [address] [facility] [id number] [address] [place] [address] Oct, [place] [address] [facility] [id number] [address] [place] [address] Oct, Vitamin B12 deficiency E53.8 [place] [address] [facility] [id number] [address] [place] [address] Sep, [place] [address] [facility] [id number] [address] [place] [address] Sep, Vitamin B12 deficiency E53.8 [place] [address] [facility] [id number] [address] [place] [address] Aug, [place] [address] [facility] [id number] [address] [place] [address] 14 Aug, 2016 Vitamin B12 deficiency E53.8 [place] [address] [facility] [id number] [address] [place] [address] Aug, [place] [address] [facility] [id number] [address] [place] [address] Jul, Elevated ALT measurement R74 .0 [place] [address] [address] Jul, Hematuria R31.9 ; Acute righ t-sided thoracic back pain M54.6 ; Major depressive disorder, recurrent episode, moderate F33.1 and Elevated ALT measurement R74.0 [place] [address] [address] Jul, [place] [address] [address] Jul, Elevated ALT measurement R74 .0 [place] [address] [address] Jul, Iron deficiency anemia due t o chronic blood loss D50.0 [place] [address] [address] Jul, Type 2 diabetes mellitus wit hout complication E11.9 ; Acquired hypothyroidism E03.9 ; Iron deficiency anemia due to chronic blood loss D50.0 ; Hyperlipidemia E78.5 and Essential hypertension I10 [place] [address] [place] [id number] [address] [place] [address] Jun, [place] [address] [place] [id number] [address] [place] [address] Jun, Vitamin B12 deficiency E53.8 [place] [address] [address] 16 Jun, 2016 Type 2 diabetes mellitus wit hout complication E11.9 ; Acquired hypothyroidism E03.9 ; Iron deficiency anemia due to chronic blood loss D50.0 ; Hyperlipidemia E78.5 ; Essential hypertension I10 ; Chronic tension-type headache, intractable G44.221 ; Pulsatile tinnitus, bilateral H93.13 ; Obstructive sleep apnea on CPAP G47.33 and Major depressive disorder, recurrent episode, moderate F33.1 [place] [address] [place] [id number] [address] [place] [address] May, Vitamin B12 deficiency E53.8 [facility] [address] [facility] [id number] [address] [place] [address] 08 May, 2016 [facility] [address] [facility] [id number] [address] [place] [address] Apr, Vitamin B12 deficiency E53.8 [facility] [address] [facility] [id number] [address] [place] [address] Apr, [facility] [address] [facility] [id number] [address] [place] [address] Mar, Chronic tension-type headach e, intractable G44.221 and Major depressive disorder, recurrent episode, moderate F33.1 [facility] [address] [facility] [id number] [address] [place] [address] Mar, Vitamin B12 deficiency E53.8 [facility] [address] [place] [id number] [address] [place] [address] February, [facility] [address] [facility] [id number] [address] [place] [address] February, Vitamin B12 deficiency E53.8 [facility] [address] [facility] [id number] [address] [place] [address] February, [facility] [address] [facility] [id number] [address] [place] [address] Jan, Dysuria R30.0 [facility] [address] [facility] [id number] [address] [place] [address] 22 Jan, 2016 Type 2 diabetes mellitus wit hout complication E11.9 and Essential hypertension I10 [facility] [address] [facility] [id number] [address] [place] [address] 15 Jan, 2016 Chronic diarrhea K52.9 [facility] [address] [facility] [id number] [address] [place] [address] 13 Jan, 2016 [facility] [address] [place] [id number] [address] [place] [address] Jan, Chronic diarrhea K52.9 [facility] [address] [place] [address] Jan, [facility] [address] [facility] [id number] [address] [place] [address] Jan, Dysuria R30.0 [facility] [address] [address] Jan, Vitamin B12 deficiency E53.8 [facility] [address] [address] 07 Jan, 2016 Dysuria R30.0 and Iron defic iency anemia due to chronic blood loss D50.0 [place] [address] [place] [id number] [address] [place] [address] 05 Jan, 2016 Dysuria R30.0 [place] [address] [address] Jan, [facility] [address] [place] [id number] [address] [place] [address] 15 Dec, 2015 [place] [address] [address] Dec, Iron deficiency anemia due t o chronic blood loss D50.0 [place] [address] [place] [id number] [address] [place] [address] 10 Dec, 2015 Dysuria R30.0 ; Fatigue R53. 83 ; Hyperlipidemia E78.5 and Diarrhea R19.7 [place] [address] [place] [address] Dec, [place] [address] [address] 02 Dec, 2015 [facility] [address] [place] [id number] [address] [place] [address] 10 Nov, 2015 Vitamin B12 deficiency E53.8 [place] [address] [address] Oct, Vitamin B12 deficiency E53.8 [facility] [address] [facility] [id number] [address] [place] [address] 12 Oct, 2015 [facility] [address] [facility] [id number] [address] [place] [address] 09 Oct, 2015 Headache R51 [facility] [address] [place] [id number] [address] [place] [address] 07 Oct, 2015 Essential hypertension I10 ; Type 2 diabetes mellitus without complication E11.9 ; Vitamin B12 deficiency E53.8 ; Acquired hypothyroidism E03.9 ; Iron deficiency anemia due to chronic blood loss D50.0 and Hyperlipidemia E78.5 [place] [address] [place] [id number] [place] [address] 17 Sep, 2015 Essential hypertension I10 ; Vitamin B12 deficiency E53.8 ; Iron deficiency anemia due to chronic blood loss D50.0 ; Type 2 diabetes mellitus without complication E11.9 ; Hyperlipidemia E78.5 and Acquired hypothyroidism E03.9 [facility] [address] [place] [id number] [address] [place] [address] Sep, [facility] [address] [address] Sep, [facility] [address] [place] [id number] [address] [place] [address] 05 Jul, 2015 [facility] [address] [place] [id number] [address] [place] [address] Jun, [facility] [address] [place] [id number] [address] [place] [address] 18 Jun, 2015 [facility] [address] [address] 15 Jun, 2015 Hyperlipidemia 272.4 ; Iron deficiency anemia 280.9 ; Hypothyroidism 244.9 ; Diabetes mellitus without mention of complication, type II or unspecified type, not stated as uncontrolled 250.00 and Hypertension 401.9 [facility] [address] [address] Jun, [facility] [address] [facility] [id number] [address] [place] [address] Jun, [facility] [address] [facility] [id number] [address] [place] [id number] May, Hyperlipidemia 272.4 [facility] [address] [facility] [id number] [address] [place] [id number] May, [facility] [address] [place] [id number] [place] [id number] May, [facility] [address] [facility] [id number] [place] [id number] Apr, Diabetes mellitus without me ntion of complication, type II or unspecified type, not stated as uncontrolled 250.00 ; Hypothyroidism 244.9 ; Hyperlipidemia 272.4 ; Pain in joint, lower leg 719.46 and RUQ pain 789.01 [facility] [address] [id number] [address] [place] [address] Mar, Sinusitis 473.9 [facility] [address] [facility] [id number] [address] [place] [address] Mar, [facility] [id number] [place] [address] Mar, [facility] [address] [facility] [id number] [address] [place] [address] Mar, Hematochezia 578.1 [facility] [address] [facility] [id number] [address] [place] [address] February, Sinusitis 473.9 [facility] [address] [id number] [address] [place] [address] February, [facility] [address] [facility] [id number] [address] [place] [address] Jan, [facility] [address] [id number] [address] [place] [address] Jan, [facility] [address] [id number] [address] [place] [address], [place] [address] Dec, [facility] [address] [id number] [address] [place] [address], [place] [address] Dec, [facility] [address] [id number] [address] [place] [address], [place] [address] Dec, [facility] [place] [address] [id number] [address] [place] [address], [place] [address] Dec, [facility] [address] [id number] [address] [place] [address], [place] [address] Dec, [facility] [place] [address] [id number] [address] [place] [address], [place] [address] Dec, [facility] [address] [id number] [address] [place] [address], [place] [address] Dec, [facility] [address] [id number] [address] [place] [address], [place] [address] Dec, [facility] [address] [id number] [address] [place] [address], [place] [address] Dec, [facility] [address] [id number] [address] [place] [address], [place] [address] Dec, [facility] [address] [id number] [address] [place] [address], [place] [address] Dec, [facility] [address] [id number] [address] [place] [address], [place] [address] Nov, [facility] [address] [id number] [address] [place] [address], [place] [address] Nov, [facility] [place] [address] [id number] [address] [place] [address], [place] [address] Nov, [facility] [address] [id number] [address] [place] [address], [place] [address] Nov, [facility] [place] [address] [id number] [address] [place] [address], [place] [address] Oct, [facility] [address] [id number] [address] [place] [address], [place] [address] Oct, [facility] [address] [id number] [address] [place] [address], [place] [address] Oct, [facility] [address] [id number] [address] [place] [address], [place] [address] Oct, [facility] [address] [id number] [address] [place] [address], [place] [address] Oct, [facility] [address] [id number] [address] [place] [address], [place] [address] Oct, [facility] [address] [id number] [address] [place] [address], [place] [address] Sep, [facility] [address] [id number] [address] [place] [address], [place] [address] Sep, [facility] [address] [id number] [address] [place] [address], [place] [address] Sep, [facility] [address] [id number] [address] [place] [address], [place] [address] Sep, [facility] [address] [id number] [address] [place] [address], [place] [address] Sep, [facility] [address] [id number] [address] [place] [address], [place] [address] Sep, [facility] [address] [id number] [address] [place] [address], [place] [address] Sep, [facility] [address] [id number] [address] [place] [address], [place] [address] Aug, [facility] [address] [id number] [address] [place] [address], [place] [address] Aug, [facility] [address] [id number] [address] [place] [address], [place] [address] Aug, [facility] [address] [id number] [address] [place] [address], [place] [address] Aug, [facility] [address] [id number] [address] [place] [address], [place] [address] Aug, [facility] [address] [id number] [address] [place] [address], [place] [address] Aug, [facility] [address] [id number] [address] [place] [address], [place] [address] Aug, [facility] [address] [id number] [address] [place] [address], [place] [address] Aug, [facility] [address] [id number] [address] [place] [address], [place] [address] Aug, [facility] [address] [id number] [address] [place] [address], [place] [address] Aug, [facility] [address] [id number] [address] [place] [address], [place] [address] Aug, [facility] [address] [id number] [address] [place] [address], [place] [address] Aug, [facility] [address] [id number] [address] [place] [address], [place] [address] Aug, [facility] [address] [id number] [address] [place] [address], [place] [address] Aug, [facility] [address] [id number] [address] [place] [address], [place] [address] Jul, [facility] [address] [id number] [address] [place] [address], [place] [address] Jul, [facility] [address] [id number] [address] [place] [address], [place] [address] Jul, [facility] [address] [id number] [address] [place] [address], [place] [address] Jul, [facility] [address] [id number] [address] [place] [address], [place] [address] 24 Jun, 2013 [facility] [address] [id number] [address] [place] [address], [place] [address] 24 Jun, 2013 [facility] [address] [id number] [address] [place] [address], [place] [address] 23 Jun, 2013 [facility] [address] [id number] [address] [place] [address], [place] [address] 23 Jun, 2013 [facility] [address] [id number] [address] [place] [address], [place] [address] 19 Jun, 2013 [facility] [address] [id number] [address] [place] [address], [place] [address] 19 Jun, 2013 [facility] [address] [id number] [address] [place] [address], [place] [address] 11 Jun, 2013 [facility] [address] [id number] [address] [place] [address], [place] [address] 11 Jun, 2013 [facility] [address] [id number] [address] [place] [address], [place] [address] 11 Jun, 2013 [facility] [address] [id number] [address] [place] [address], [place] [address] 11 Jun, 2013 [facility] [address] [id number] [address] [place] [address], [place] [address] 10 Jun, 2013 [facility] [address] [id number] [address] [place] [address], [place] [address] 10 Jun, 2013 [facility] [address] [id number] [address] [place] [address], [place] [address] 09 Jun, 2013 [facility] [address] [id number] [address] [place] [address], [place] [address] 09 Jun, 2013 [facility] [address] [id number] [address] [place] [address], [place] [address] 14 May, 2014 [facility] [address] [id number] [address] [place] [address], [place] [address] 14 May, 2014 [facility] [address] [id number] [facility] [place] [address] May, [facility] [address] [id number] [facility] [place] [address] May, [facility] [address] [id number] [facility] [place] [address] May, [facility] [address] [id number] [address] [place] [address], [place] [address] May, [facility] [address] [id number] [facility] [place] [address] Apr, [facility] [address] [id number] [address] [place] [address], [place] [address] Apr, [facility] [address] [id number] [address] [place] [address], [place] [address] Apr, [facility] [address] [id number] [address] [place] [address], [place] [address] Apr, [facility] [address] [id number] [address] [place] [address], [place] [address] Apr, [facility] [address] [id number] [address] [place] [address], [place] [address] Apr, [facility] [address] [id number] [address] [place] [address], [place] [address] Apr, [facility] [address] [id number] [address] [place] [address], [place] [address] Apr, [facility] [address] [id number] [address] [place] [address], [place] [address] Apr, [facility] [address] [id number] [address] [place] [address], [place] [address] Apr, [facility] [address] [id number] [address] [place] [address], [place] [address] Apr, [facility] [address] [id number] [address] [place] [address], [place] [address] Mar, [facility] [address] [id number] [address] [place] [address], [place] [address] Mar, [facility] [address] [id number] [address] [place] [address], [place] [address] Mar, [facility] [address] [id number] [address] [place] [address], [place] [address] Mar, [facility] [address] [id number] [address] [place] [address], [place] [address] February, [facility] [address] [id number] [address] [place] [address], [place] [address] February, [facility] [address] [id number] [address] [place] [address], [place] [address] Jan, [facility] [address] [id number] [address] [place] [address], [place] [address] Jan, [address] [id number] Jan, [facility] [address] [id number] [address] [place] [address], [place] [address] Jan, [facility] [address] [id number] [address] [place] [address], [place] [address] Jan, [facility] [address] [id number] [address] [place] [address], [place] [address] Jan, [facility] [address] [id number] [address] [place] [address], [place] [address] Jan, [facility] [address] [id number] [address] [place] [address], [place] [address] Jan, [facility] [address] [id number] [address] [place] [address], [place] [address] Jan, [facility] [address] [id number] [address] [place] [address], [place] [address] Jan, [facility] [address] [id number] [address] [place] [address], [place] [address] Jan, [facility] [address] [id number] [facility] [place] [address] Jan, [facility] [address] [id number] [address] [place] [address], [place] [address] Jan, [facility] [address] [id number] [facility] [place] [address] Jan, [facility] [address] [id number] [address] [place] [address], [place] [address] Jan, [facility] [address] [id number] [address] [place] [address], [place] [address] Jan, [facility] [address] [id number] [address] [place] [address], [place] [address] Jan, [facility] [address] [id number] [address] [place] [address], [place] [address] Dec, [facility] [address] [id number] [address] [place] [address], [place] [address] Dec, [facility] [address] [id number] [address] [place] [address], [place] [address] Dec, [facility] [address] [id number] [address] [place] [address], [place] [address] Dec, [facility] [address] [id number] [address] [place] [address], [place] [address] Dec, [facility] [address] [id number] [address] [place] [address], [place] [address] Dec, [facility] [address] [id number] [address] [place] [address], [place] [address] Dec, [facility] [address] [id number] [address] [place] [address], [place] [address] Nov, [facility] [address] [id number] [address] [place] [address], [place] [address] Nov, [facility] [address] [id number] [facility] [address] Nov, [facility] [address] [id number] [address] [place] [address], [place] [address] Nov, [facility] [address] [id number] [address] [place] [address], [place] [address] Nov, [facility] [address] [id number] [address] [place] [address], [place] [address] Nov, [facility] [address] [id number] [address] [place] [address], [place] [address] Nov, [facility] [address] [id number] [address] [place] [address], [place] [address] Oct, [facility] [address] [id number] [address] [place] [address], [place] [address] Oct, [facility] [address] [id number] [address] [place] [address], [place] [address] Sep, [facility] [address] [id number] [address] [place] [address], [place] [address] Sep, [facility] [address] [id number] [address] [place] [address], [place] [address] Sep, [facility] [address] [id number] [address] [place] [address], [place] [address] Sep, [facility] [address] [id number] [address] [place] [address], [place] [address] Sep, [facility] [address] [id number] [address] [place] [address], [place] [address] Sep, [facility] [address] [id number] [address] [place] [address], [place] [address] Sep, [facility] [address] [id number] [address] [place] [address], [place] [address] Sep, [facility] [address] [id number] [address] [place] [address], [place] [address] Sep, [facility] [address] [id number] [address] [place] [address] Sep, [facility] [address] [id number] [address] [place] [address] Aug, [facility] [address] [id number] [address] [place] [address] Aug, [facility] [address] [id number] [address] [place] [address] Aug, [facility] [address] [id number] [address] [place] [address] Aug, [facility] [address] [id number] [address] [place] [address] Aug, [facility] [address] [id number] [address] [place] [address] Jul, [facility] [address] [id number] [address] [place] [address] Jul, [facility] [address] [id number] [address] [place] [address] Jul, [facility] [address] [id number] [address] [place] [address] Jul, IMMUNIZATIONS No Known Immunizations SOCIAL HISTORY Never Assessed REASON FOR VISIT PLAN OF CARE VITAL SIGNS Height 62 in 2014-08-22 Weight 280.5 lbs 2014-08-22 Temperature 98 degrees Fahrenheit 2014-08-22 Heart Rate 80 bpm 2014-08-22 Respiratory Rate 20 2014-08-22 Blood pressure systolic 124 mmHg 2014-08-22 Blood pressure diastolic 68 mmHg 2014-08-22 MEDICATIONS No Known Medications RESULTS No Results PROCEDURES Procedure Date Ordered Result Body Site COMPLETE CBC W/AUTO DIFF WBC Aug 22, 2014 ASSAY OF LIPASE Aug 22, 2014 GLYCATED HEMOGLOBIN TEST Aug 22, 2014 COMPREHEN METABOLIC PANEL Aug 22, 2014 VENIPUNCT, ROUTINE* Aug 22, 2014 INSTRUCTIONS MEDICATIONS ADMINISTERED No Known [...]
--- OUTSIDE RECORDS SUMMARY | 2020-03-16 11:51 | XMS REPORT ---
Author Author Swathi Benavides Organization [facility] Address [address] [place] [address] Care Team Providers Care Patrol Commander Name Role Phone WIL Benavides Unavailable PROBLEMS Type Condition ICD9-CM Code INB98-FR Code Onset Dates Condition S tatus SNOMED Code Problem Sensorineural hearing loss of right ear H90.41 Active 98530227 Problem Obstructive sleep apnea on CPAP G47.33 Active 97891146 Problem Periodic limb movement sleep disorder G47.61 Active 136519491 Problem Iron deficiency anemia due to chronic blood loss D 50.0 Active 64115781 Problem MACHUCA (nonalcoholic steatohepatitis) K75.81 Active 709178070 Problem Vitamin B12 deficiency E53.8 Active 046597891 Problem Chronic diarrhea K52.9 Active 236 285715 Problem Vitamin D deficiency E55.9 Active 20600936 Problem BMI 50.0-59.9, adult Z68.43 Active 539631245 Problem Fatty liver K76.0 Active 18280382 7 Problem Anxiety F41.9 Active 62811194 Problem Major depressive disorder, recurrent episode, moderate F33.1 Active 383909554 Problem Chronic tension-type headache, intractable G44.221 Active 125914048 Problem Right upper quadrant pain R10.11 Acti ve 86200600 Problem Frequent falls R29.6 Active 80369 2002 Problem Crohn's disease of both small and large intestin e with complication K50.819 Active 70924265 Problem Type 2 diabetes mellitus with other specified complication E11.69 Active 029234596908 Problem Hyperlipidemia, unspecified E78.5 Ac tive 26844553 Problem Mixed stress and urge urinary incontinence N39.46 Active 082042232 Problem Sinusitis chronic, frontal J32.1 Act katlyn 30011187 Problem Seasonal allergies J30.2 Active 4 86059155 Problem Other chronic pain G89.29 Active 8 2728989 Problem Hyperlipidemia E78.5 Active 09628 004 Problem Bilateral primary osteoarthritis of knee M17.0 Active 481037027 Problem Essential hypertension I10 Active 97986166 Problem Acquired hypothyroidism E03.9 Active 931197194 Problem History of hysterectomy for benign disease Z90.710 Active 152866109 Problem Morbid (severe) obesity due to excess calories E66 .01 Active 949299185 Problem Other cirrhosis of liver K74.69 Activ e 45040216 Problem Portal hypertension K76.6 Active 13441793 ALLERGIES No Information ENCOUNTERS Encounter Location Date Diagnosis [facility] [address] [place] [facility] [place] [address] Jun, Pneumonia of right middle lobe due to in fectious organism J18.[address] [facility] [address] [place] [facility] [place] [address] Jun, Acute nasopharyngitis J00 [facility] [address] [facility] [id number] [address] [place] [phone] May, Iron deficiency anemia due t o [...] recurrent episode, moderate F33.1 [facility] [address] [facility] [id number] [address] [place] [address] May, Hyperlipidemia, unspecified E78.5 ; Other cirrhosis of liver K74.69 and Iron deficiency anemia due to chronic blood loss D50.0 [facility] [address] [facility] [id number] [address] [place] [phone] February, [facility] [address] [facility] [place] [address] February, Acute recurrent pansinusitis J01.41 [facility] [address] [facility] [place] [address] February, Acute maxillary sinusitis, recurrence no t specified J01.00 [place] [address] [place] [id number] [address] [place] [phone] Jan, Bilateral primary osteoarthr itis of knee M17.0 ; Morbid obesity E66.01 ; Viral syndrome B34.9 and Atrial dilatation, left I51.7 [place] [address] [place] [id number] [address] [place] [phone] Jan, [place] [address] [place] [id number] [place] [phone] Dec, Trigeminy R00.8 [place] [address] [place] [id number] [address] [place] [phone] Dec, Essential hypertension I10 ; Morbid obesity E66.01 ; Low back pain M54.5 ; Other chronic pain G89.29 and Pain in right knee M25.561 [place] [address] [place] [id number] [address] [place] [address] Nov, [place] [address] [place] [id number] [place] [phone] Oct, Palpitations R00.[address] [address] Oct, Encounter for Medicare ann l wellness [...] large intestine with complication K50.819 [place] [address] [place] [id number] [address] [place] [address] Oct, [place] [address] [place] [id number] [address] [place] [phone] Oct, Crohn's disease of both smal l and large intestine with complication K50.819 [facility] [address] [place] [id number] [address] [place] [address] Jul, Sinusitis chronic, frontal J 32.1 ; Acute mucoid otitis media of both ears H65.113 ; Seasonal allergies J30.2 and BMI 50.0-59.9, adult Z68.43 [place] [address] [address] Jul, Essential hypertension I10 ; Type 2 diabetes mellitus with other specified complication E11.69 ; BMI 50.0-59.9, adult Z68.43 ; Mixed stress and urge urinary incontinence N39.46 and Mid back pain on right side M54.9 [place] [address] [place] [id number] [address] [place] [phone] Jun, Iron deficiency anemia due t o chronic blood loss D50.0 ; Hyperlipidemia E78.5 ; Type 2 diabetes mellitus with other specified complication E11.69 ; Vitamin B12 deficiency E53.8 and Vitamin D deficiency E55.9 [facility] [address] [place] [id number] [address] [place] [phone] 14 Jun, 2018 Cough R05 and BMI 50.0-59.9, adult Z68.43 [place] [address] [place] [id number] [address] [place] [phone] Jun, [place] [address] [place] [id number] [address] [place] [address] May, Iron deficiency anemia due t o chronic blood loss D50.0 ; Chronic diarrhea K52.9 ; Essential hypertension I10 ; Type 2 diabetes mellitus with other specified complication E11.69 ; Vitamin D deficiency E55.9 ; Colon stricture K56.699 ; Vitamin B12 deficiency E53.8 ; Hyperlipidemia E78.5 and BMI 50.0-59.9, adult Z68.43 [place] [address] [place] [id number] [address] [place] [address] May, [place] [address] [place] [address] [place] [address] Apr, Nonhealing wound of heel S91 .309A and Body mass index (BMI) of 50- 59.9 in adult Z68.43 [facility] [id number] [place] [address] Mar, [facility] [address] [address] Mar, BMI 50.0-59.9, adult Z68.43 ; Flank pain R10.9 and Weight loss counseling, encounter for Z71.3 [place] [address] [address] February, [place] [address] [address] Jan, [place] [address] [address] Jan, [facility] [address] [place] [id number] [address] [place] [phone] Jan, Diarrhea due to staphylococc us A04.8 and Diarrhea, unspecified type R19.7 [place] [address] [place] [id number] [address] [place] [phone] Jan, Acquired hypothyroidism E03. 9 ; Type 2 diabetes mellitus with other specified complication E11.69 ; Hyperlipidemia E78.5 ; Essential hypertension I10 ; Major depressive disorder, recurrent episode, moderate F33.1 and Vitamin D deficiency E55.9 [place] [address] [place] [id number] [address] [place] [address] Jan, Type 2 diabetes mellitus wit h other specified complication E11.69 ; Hyperlipidemia E78.5 ; Essential hypertension I10 ; Acquired hypothyroidism E03.9 ; Major depressive disorder, recurrent episode, moderate F33.1 ; Vitamin D deficiency E55.9 ; Sinus congestion R09.81 and BMI 50.0-59.9, adult Z68.43 [place] [address] [place] [id number] [address] [place] [phone] Dec, [facility] [address] [facility] [id number] [address] [place] [phone] Sep, Encounter for immunization Z 23 [facility] [address] [facility] [id number] [address] [place] [phone] Sep, [facility] [address] [place] [id number] [address] [place] [phone] Sep, Vitamin B12 deficiency E53.8 [place] [address] [facility] [id number] [address] [place] [phone] Aug, [place] [address] [address] Aug, BMI 60.0-69.9, adult Z68.44 and Acute non-recurrent maxillary sinusitis J01.00 [place] [address] [place] [id number] [address] [place] [address] Aug, [place] [address] [place] [id number] [address] [place] [phone] Aug, Medicare annual wellness vis it, initial Z00.00 ; Screening for breast cancer Z12.31 ; BMI 40.0-44.9, adult Z68.41 and Acquired hypothyroidism E03.9 [place] [address] [place] [id number] [address] [place] [address] Jul, Actinic keratosis L57.0 [place] [address] [place] [id number] [address] [place] [phone] Jul, Actinic keratosis L57.0 [place] [address] [place] [id number] [address] [place] [address] Jul, Type 2 diabetes mellitus wit h other specified complication E11.69 ; Actinic keratosis L57.0 and Hypothyroidism, unspecified E03.9 [place] [address] [place] [id number] [address] [place] [phone] Jul, [place] [address] [address] Jul, [place] [address] [address] Jul, Vitamin B12 deficiency E53.8 [place] [address] [address] Jun, Acquired hypothyroidism E03. 9 and Chronic tension-type headache, intractable G44.221 [place] [address] [address] Jun, Back muscle spasm M62.830 an d BMI 50.0-59.9, adult Z68.43 [place] [address] [address] Jun, Vitamin B12 deficiency E53.8 [place] [address] [address] Jun, Crohn's disease of both smal l and large intestine with complication K50.819 [place] [address] [address] Jun, Crohn's disease of both smal l and large intestine with complication K50.819 [place] [address] [address] May, Hyperlipidemia E78.5 ; Anxie ty F41.9 and Essential hypertension I10 [place] [address] [address] May, [place] [address] [address] May, Encounter for immunization Z 23 and Vitamin B12 deficiency E53.8 [place] [address] [place] [id number] [address] [place] [phone] May, [place] [address] [address] Apr, [place] [address] [facility] [id number] [address] [place] [phone] Apr, [place] [address] [facility] [id number] [address] [place] [phone] Apr, Crohn's disease of both smal l and large intestine with complication K50.819 [place] [address] [facility] [id number] [address] [place] [phone] Apr, Vitamin B12 deficiency E53.8 [place] [address] [facility] [id number] [address] [place] [phone] Apr, Crohn's disease of both smal l and large intestine with complication K50.819 and Acute pain of right shoulder M25.511 [place] [address] [facility] [id number] [address] [place] [phone] Mar, Type 2 diabetes mellitus wit hout complication E11.9 ; Frequent falls R29.6 and Other chest pain R07.89 [place] [address] [facility] [id number] [address] [place] [phone] Mar, [place] [address] [facility] [id number] [address] [place] [phone] Mar, [place] [address] [facility] [id number] [address] [place] [phone] Mar, Type 2 diabetes mellitus wit hout complication E11.9 and Blurry vision, bilateral H53.8 [place] [address] [facility] [id number] [address] [place] [phone] Mar, Vitamin B12 deficiency E53.8 [place] [address] [facility] [id number] [address] [place] [phone] Mar, Crohn's disease of both smal l and large intestine with complication K50.819 [place] [address] [facility] [id number] [address] [place] [phone] February, Vitamin B12 deficiency E53.8 [place] [address] [facility] [id number] [address] [place] [address] Jan, Crohn's disease of both smal l and large intestine with complication K50.819 [facility] [address] [facility] [id number] [address] [place] [phone] Jan, Crohn's disease of both smal l and large intestine with complication K50.819 [facility] [address] [facility] [id number] [address] [place] [address] Jan, Dark brown-colored urine R82 .99 and Acute suppurative otitis media of right ear without spontaneous rupture of tympanic membrane, recurrence not specified H66.001 [facility] [address] [place] [id number] [address] [place] [phone] Jan, Encounter for immunization Z 23 [place] [address] [facility] [id number] [address] [place] [phone] Dec, Crohn's disease of both smal l and large intestine with complication K50.819 and Eustachian tube dysfunction, right H69.81 [facility] [address] [facility] [id number] [address] [place] [phone] Dec, [place] [address] [facility] [id number] [address] [place] [phone] Dec, Contusion of right knee, ini tial encounter S80.01XA [place] [address] [place] [id number] [address] [place] [phone] Dec, [place] [address] [facility] [id number] [address] [place] [phone] Dec, Acute pain of right knee M25 .561 [place] [address] [place] [id number] [address] [place] [phone] Dec, Iron deficiency anemia due t o chronic blood loss D50.0 [place] [address] [place] [id number] [address] [place] [phone] Dec, Hyperlipidemia E78.5 ; Type 2 diabetes mellitus without complication E11.9 ; Vitamin B12 deficiency E53.8 ; Essential hypertension I10 ; Obstructive sleep apnea on CPAP G47.33 and Periodic limb movement sleep disorder G47.61 [facility] [address] [facility] [id number] [address] [place] [phone] 22 Nov, 2016 Type 2 diabetes mellitus wit hout complication E11.9 ; Vitamin B12 deficiency E53.8 ; Hyperlipidemia E78.5 ; Essential hypertension I10 ; Obstructive sleep apnea on CPAP G47.33 ; Periodic limb movement sleep disorder G47.61 ; Anxiety F41.9 ; Acquired hypothyroidism E03.9 and Chronic tension-type headache, intractable G44.221 [place] [address] [facility] [id number] [address] [place] [phone] 10 Nov, 2016 Crohn's disease of both smal l and large intestine with complication K50.819 [place] [address] [facility] [id number] [address] [place] [phone] Nov, Vitamin B12 deficiency E53.8 [place] [address] [facility] [id number] [address] [place] [phone] Oct, [place] [address] [facility] [id number] [address] [place] [phone] Oct, Vitamin B12 deficiency E53.8 [place] [address] [facility] [id number] [address] [place] [phone] Sep, [place] [address] [facility] [id number] [address] [place] [phone] Sep, Vitamin B12 deficiency E53.8 [place] [address] [facility] [id number] [address] [place] [phone] Aug, [place] [address] [facility] [id number] [address] [place] [phone] 14 Aug, 2016 Vitamin B12 deficiency E53.8 [place] [address] [facility] [id number] [address] [place] [phone] Aug, [place] [address] [facility] [id number] [address] [place] [phone] Jul, Elevated ALT measurement R74 .0 [place] [address] [address] Jul, Hematuria R31.9 ; Acute righ t-sided thoracic back pain M54.6 ; Major depressive disorder, recurrent episode, moderate F33.1 and Elevated ALT measurement R74.0 [place] [address] [address] Jul, [place] [address] [address] Jul, Elevated ALT measurement R74 .0 [place] [address] [address] Jul, Iron deficiency anemia due t o chronic blood loss D50.0 [place] [address] [address] Jul, Type 2 diabetes mellitus wit hout complication E11.9 ; Acquired hypothyroidism E03.9 ; Iron deficiency anemia due to chronic blood loss D50.0 ; Hyperlipidemia E78.5 and Essential hypertension I10 [place] [address] [place] [id number] [address] [place] [address] Jun, [place] [address] [place] [id number] [place] [phone] Jun, Vitamin B12 deficiency E53.8 [place] [address] [address] 16 Jun, 2016 Type 2 diabetes mellitus wit hout complication E11.9 ; Acquired hypothyroidism E03.9 ; Iron deficiency anemia due to chronic blood loss D50.0 ; Hyperlipidemia E78.5 ; Essential hypertension I10 ; Chronic tension-type headache, intractable G44.221 ; Pulsatile tinnitus, bilateral H93.13 ; Obstructive sleep apnea on CPAP G47.33 and Major depressive disorder, recurrent episode, moderate F33.1 [place] [address] [place] [id number] [address] [place] [address] May, Vitamin B12 deficiency E53.8 [facility] [address] [facility] [id number] [address] [place] [phone] 08 May, 2016 [facility] [address] [facility] [id number] [address] [place] [phone] Apr, Vitamin B12 deficiency E53.8 [facility] [address] [facility] [id number] [address] [place] [phone] Apr, [facility] [address] [facility] [id number] [address] [place] [address] Mar, Chronic tension-type headach e, intractable G44.221 and Major depressive disorder, recurrent episode, moderate F33.1 [facility] [address] [facility] [id number] [address] [place] [phone] Mar, Vitamin B12 deficiency E53.8 [facility] [address] [place] [id number] [address] [place] [phone] February, [facility] [address] [facility] [id number] [address] [place] [phone] February, Vitamin B12 deficiency E53.8 [facility] [address] [facility] [id number] [address] [place] [phone] February, [facility] [address] [facility] [id number] [address] [place] [phone] Jan, Dysuria R30.0 [facility] [address] [facility] [id number] [address] [place] [phone] 22 Jan, 2016 Type 2 diabetes mellitus wit hout complication E11.9 and Essential hypertension I10 [facility] [address] [facility] [id number] [address] [place] [phone] 15 Jan, 2016 Chronic diarrhea K52.9 [facility] [address] [facility] [id number] [address] [place] [phone] 13 Jan, 2016 [facility] [address] [place] [id number] [address] [place] [phone] Jan, Chronic diarrhea K52.9 [facility] [id number] [place] [phone] Jan, [facility] [address] [facility] [id number] [address] [place] [phone] Jan, Dysuria R30.0 [facility] [address] [address] Jan, Vitamin B12 deficiency E53.8 [facility] [address] [address] 07 Jan, 2016 Dysuria R30.0 and Iron defic iency anemia due to chronic blood loss D50.0 [place] [address] [place] [id number] [address] [place] [phone] 05 Jan, 2016 Dysuria R30.0 [place] [address] [address] Jan, [facility] [address] [place] [id number] [address] [place] [phone] 15 Dec, 2015 [place] [address] [address] Dec, Iron deficiency anemia due t o chronic blood loss D50.0 [place] [address] [place] [id number] [place] [phone] 10 Dec, 2015 Dysuria R30.0 ; Fatigue R53. 83 ; Hyperlipidemia E78.5 and Diarrhea R19.7 [place] [address] [place] [phone] Dec, [place] [address] [address] 02 Dec, 2015 [facility] [address] [place] [id number] [address] [place] [phone] 10 Nov, 2015 Vitamin B12 deficiency E53.8 [place] [address] [address] Oct, Vitamin B12 deficiency E53.8 [facility] [address] [facility] [id number] [address] [place] [phone] 12 Oct, 2015 [facility] [address] [facility] [id number] [address] [place] [phone] 09 Oct, 2015 Headache R51 [facility] [address] [place] [id number] [address] [place] [phone] 07 Oct, 2015 Essential hypertension I10 ; Type 2 diabetes mellitus without complication E11.9 ; Vitamin B12 deficiency E53.8 ; Acquired hypothyroidism E03.9 ; Iron deficiency anemia due to chronic blood loss D50.0 and Hyperlipidemia E78.5 [place] [address] [place] [id number] [place] [phone] 17 Sep, 2015 Essential hypertension I10 ; Vitamin B12 deficiency E53.8 ; Iron deficiency anemia due to chronic blood loss D50.0 ; Type 2 diabetes mellitus without complication E11.9 ; Hyperlipidemia E78.5 and Acquired hypothyroidism E03.9 [facility] [address] [place] [id number] [address] [place] [phone] Sep, [facility] [address] [phone] Sep, [facility] [address] [place] [id number] [address] [place] [phone] 05 Jul, 2015 [facility] [address] [place] [id number] [address] [place] [phone] Jun, [facility] [address] [place] [id number] [address] [place] [phone] 18 Jun, 2015 [facility] [address] [phone] 15 Jun, 2015 Hyperlipidemia 272.4 ; Iron deficiency anemia 280.9 ; Hypothyroidism 244.9 ; Diabetes mellitus without mention of complication, type II or unspecified type, not stated as uncontrolled 250.00 and Hypertension 401.9 [facility] [address] [id number] Jun, [facility] [address] [facility] [id number] [address] [place] [id number] Jun, [facility] [address] [facility] [id number] [address] [place] [phone] May, Hyperlipidemia 272.4 [facility] [address] [facility] [id number] [address] [place] [id number] May, [facility] [id number] [place] [phone] May, [facility] [address] [facility] [id number] [place] [id number] Apr, Diabetes mellitus without me ntion of complication, type II or unspecified type, not stated as uncontrolled 250.00 ; Hypothyroidism 244.9 ; Hyperlipidemia 272.4 ; Pain in joint, lower leg 719.46 and RUQ pain 789.01 [facility] [address] [id number] [address] [place] [phone] Mar, Sinusitis 473.9 [facility] [address] [facility] [id number] [address] [place] [phone] Mar, [facility] [id number] [place] [id number] Mar, [facility] [address] [facility] [id number] [address] [place] [phone] Mar, Hematochezia 578.1 [facility] [address] [facility] [id number] [address] [place] [phone] February, Sinusitis 473.9 [facility] [address] [id number] [address] [place] [phone] February, [facility] [address] [facility] [id number] [address] [place] [phone] Jan, [facility] [address] [id number] [address] [place] [phone] Jan, [facility] [address] [id number] [address] [place] [address], [place] [address] Dec, [facility] [address] [id number] [address] [place] [address], [place] [id number] Dec, [facility] [address] [id number] [address] [place] [address], [place] [id number] Dec, [facility] [place] [facility] [address] [id number] [address] [place] [address], [place] [id number] Dec, [facility] [address] [id number] [address] [place] [address], [place] [id number] Dec, [facility] [place] [facility] [address] [id number] [address] [place] [address], [place] [address] Dec, [facility] [address] [id number] [address] [place] [address], [place] [id number] Dec, [facility] [address] [id number] [address] [place] [address], [place] [id number] Dec, [facility] [address] [id number] [address] [place] [address], [place] [id number] Dec, [facility] [place] [facility] [address] [id number] [address] [place] [address], [place] [id number] Dec, [facility] [place] [facility] [address] [id number] [address] [place] [address], [place] [id number] Dec, [facility] [place] [facility] [address] [id number] [address] [place] [address], [place] [id number] Nov, [facility] [place] [facility] [address] [id number] [address] [place] [address], [place] [id number] Nov, [facility] [place] [facility] [address] [id number] [address] [place] [address], [place] [address] Nov, [facility] [place] [address] [id number] [address] [place] [address], [place] [address] Nov, [facility] [place] [facility] [address] [id number] [address] [place] [address], [place] [id number] Oct, [facility] [address] [id number] [address] [place] [address], [place] [id number] Oct, [facility] [address] [id number] [address] [place] [address], [place] [id number] Oct, [facility] [address] [id number] [address] [place] [address], [place] [id number] Oct, [facility] [address] [id number] [address] [place] [address], [place] [id number] Oct, [facility] [address] [id number] [address] [place] [address], [place] [id number] Oct, [facility] [address] [id number] [address] [place] [address], [place] [id number] Sep, [facility] [address] [id number] [address] [place] [address], [place] [address] Sep, [facility] [address] [id number] [address] [place] [address], [place] [id number] Sep, [facility] [address] [id number] [address] [place] [address], [place] [id number] Sep, [facility] [address] [id number] [address] [place] [address], [place] [id number] Sep, [facility] [address] [id number] [address] [place] [address], [place] [id number] Sep, [facility] [address] [id number] [address] [place] [address], [place] [address] Sep, [facility] [address] [id number] [address] [place] [address], [place] [address] Aug, [facility] [address] [id number] [address] [place] [address], [place] [address] Aug, [facility] [address] [id number] [address] [place] [address], [place] [address] Aug, [facility] [address] [id number] [address] [place] [address], [place] [address] Aug, [facility] [address] [id number] [address] [place] [address], [place] [address] Aug, [facility] [address] [id number] [address] [place] [address], [place] [address] Aug, [facility] [address] [id number] [address] [place] [address], [place] [address] Aug, [facility] [address] [id number] [address] [place] [address], [place] [address] Aug, [facility] [address] [id number] [address] [place] [address], [place] [id number] Aug, [facility] [address] [id number] [address] [place] [address], [place] [address] Aug, [facility] [address] [id number] [address] [place] [address], [place] [id number] Aug, [facility] [address] [id number] [address] [place] [address], [place] [address] Aug, [facility] [address] [id number] [address] [place] [address], [place] [address] Aug, [facility] [place] [address] [id number] [address] [place] [address], [place] [address] Aug, [facility] [address] [id number] [address] [place] [address], [place] [address] Jul, [facility] [place] [address] [id number] [address] [place] [address], [place] [address] Jul, [facility] [address] [id number] [address] [place] [address], [place] [address] Jul, [facility] [address] [id number] [address] [place] [address], [place] [address] Jul, [facility] [address] [id number] [address] [place] [address], [place] [address] 24 Jun, 2013 [facility] [address] [id number] [address] [place] [address], [place] [id number] 24 Jun, 2013 [facility] [address] [id number] [address] [place] [address], [place] [id number] 23 Jun, 2013 [facility] [address] [id number] [address] [place] [address], [place] [id number] 23 Jun, 2013 [facility] [address] [id number] [address] [place] [address], [place] [address] 19 Jun, 2013 [facility] [address] [id number] [address] [place] [address], [place] [id number] 19 Jun, 2013 [facility] [address] [id number] [address] [place] [address], [place] [address] 11 Jun, 2013 [facility] [address] [id number] [address] [place] [address], [place] [address] 11 Jun, 2013 [facility] [address] [id number] [address] [place] [address], [place] [address] 11 Jun, 2013 [facility] [address] [id number] [address] [place] [address], [place] [id number] 11 Jun, 2013 [facility] [address] [id number] [address] [place] [address], [place] [address] 10 Jun, 2013 [facility] [address] [id number] [address] [place] [address], [place] [address] 10 Jun, 2013 [facility] [address] [id number] [address] [place] [address], [place] [id number] 09 Jun, 2013 [facility] [address] [id number] [address] [place] [address], [place] [address] 09 Jun, 2013 [facility] [address] [id number] [address] [place] [address], [place] [address] 14 May, 2014 [facility] [place] [address] [id number] [address] [place] [address], [place] [address] 14 May, 2014 [facility] [place] [facility] [address] [id number] [facility] [place] [address] May, [facility] [address] [id number] [facility] [place] [address] May, [facility] [address] [id number] [facility] [place] [address] May, [facility] [address] [id number] [address] [place] [address], [place] [address] May, [facility] [address] [id number] [facility] [place] [address] Apr, [facility] [address] [id number] [address] [place] [address], [place] [address] Apr, [facility] [address] [id number] [address] [place] [address], [place] [address] Apr, [facility] [address] [id number] [address] [place] [address], [place] [address] Apr, [facility] [address] [id number] [address] [place] [address], [place] [address] Apr, [facility] [address] [id number] [address] [place] [address], [place] [address] Apr, [facility] [address] [id number] [address] [place] [address], [place] [address] Apr, [facility] [address] [id number] [address] [place] [address], [place] [address] Apr, [facility] [address] [id number] [address] [place] [address], [place] [address] Apr, [facility] [address] [id number] [address] [place] [address], [place] [address] Apr, [facility] [address] [id number] [address] [place] [address], [place] [address] Apr, [facility] [address] [id number] [address] [place] [address], [place] [address] Mar, [facility] [address] [id number] [address] [place] [address], [place] [address] Mar, [facility] [address] [id number] [address] [place] [address], [place] [address] Mar, [facility] [address] [id number] [address] [place] [address], [place] [address] Mar, [facility] [address] [id number] [address] [place] [address], [place] [address] February, [facility] [address] [id number] [address] [place] [address], [place] [address] February, [facility] [address] [id number] [address] [place] [address], [place] [address] Jan, [facility] [address] [id number] [address] [place] [address], [place] [address] Jan, [address] [id number] Jan, [facility] [address] [id number] [address] [place] [address], [place] [address] Jan, [facility] [address] [id number] [address] [place] [address], [place] [address] Jan, [facility] [address] [id number] [address] [place] [address], [place] [address] Jan, [facility] [address] [id number] [address] [place] [address], [place] [address] Jan, [facility] [address] [id number] [address] [place] [address], [place] [address] Jan, [facility] [address] [id number] [address] [place] [address], [place] [address] Jan, [facility] [address] [id number] [address] [place] [address], [place] [address] Jan, [facility] [address] [id number] [address] [place] [address], [place] [address] Jan, [facility] [address] [id number] [facility] [place] [address] Jan, [facility] [address] [id number] [address] [place] [address], [place] [address] Jan, [facility] [address] [id number] [facility] [place] [address] Jan, [facility] [address] [id number] [address] [place] [address], [place] [address] Jan, [facility] [address] [id number] [address] [place] [address], [place] [address] Jan, [facility] [address] [id number] [address] [place] [address], [place] [address] Jan, [facility] [address] [id number] [address] [place] [address], [place] [address] Dec, [facility] [address] [id number] [address] [place] [address], [place] [address] Dec, [facility] [address] [id number] [address] [place] [address], [place] [address] Dec, [facility] [address] [id number] [address] [place] [address], [place] [address] Dec, [facility] [facility] [address] [id number] [address] [place] [address], [place] [address] Dec, [facility] [address] [id number] [address] [place] [address], [place] [address] Dec, [facility] [place] [address] [id number] [address] [place] [address], [place] [address] Dec, [facility] [place] [facility] [address] [id number] [address] [place] [address], [place] [address] Nov, [facility] [address] [id number] [address] [place] [address], [place] [address] Nov, [facility] [place] [facility] [address] [id number] [address] [address] Nov, [facility] [address] [id number] [address] [place] [address], [place] [address] Nov, [facility] [address] [id number] [address] [place] [address], [place] [address] Nov, [facility] [address] [id number] [address] [place] [address], [place] [address] Nov, [facility] [address] [id number] [address] [place] [address], [place] [address] Nov, [facility] [address] [id number] [address] [place] [address], [place] [address] Oct, [facility] [address] [id number] [address] [place] [address], [place] [address] Oct, [facility] [address] [id number] [address] [place] [address], [place] [address] Sep, [facility] [address] [id number] [address] [place] [address], [place] [address] Sep, [facility] [address] [id number] [address] [place] [address], [place] [address] Sep, [facility] [address] [id number] [address] [place] [address], [place] [address] Sep, [facility] [address] [id number] [address] [place] [address], [place] [address] Sep, [facility] [address] [id number] [address] [place] [address], [place] [address] Sep, [facility] [address] [id number] [address] [place] [address], [place] [address] Sep, [facility] [address] [id number] [address] [place] [address], [place] [address] Sep, [facility] [address] [id number] [address] [place] [address], [place] [address] Sep, [facility] [address] [id number] [address] [place] [id number] Sep, [facility] [address] [id number] [address] [place] [id number] Aug, [facility] [address] [id number] [address] [place] [id number] Aug, [facility] [address] [id number] [address] [place] [id number] Aug, [facility] [address] [id number] [address] [place] [id number] Aug, [facility] [address] [id number] [address] [place] [id number] Aug, [facility] [address] [id number] [address] [place] [id number] Jul, [facility] [address] [id number] [address] [place] [id number] Jul, [facility] [address] [id number] [address] [place] [id number] Jul, [facility] [address] [id number] [address] [place] [id number] Jul, IMMUNIZATIONS No Known Immunizations SOCIAL HISTORY [...]
--- OUTSIDE RECORDS SUMMARY | 2020-03-16 11:51 | XMS REPORT ---
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 Name Role Phone WIL Benavides Unavailable PROBLEMS Type Condition ICD9-CM Code [id number] Code Onset Dates Condition S tatus SNOMED Code Problem Sensorineural hearing loss of right ear H90.41 Active 08560465 Problem Obstructive sleep apnea on CPAP G47.33 Active 12013779 Problem Periodic limb movement sleep disorder G47.61 Active 269209527 Problem Iron deficiency anemia due to chronic blood loss D 50.0 Active 70729362 Problem MACHUCA (nonalcoholic steatohepatitis) K75.81 Active 725137166 Problem Vitamin B12 deficiency E53.8 Active 159856189 Problem Chronic diarrhea K52.9 Active 236 230364 Problem Vitamin D deficiency E55.9 Active 23663561 Problem BMI 50.0-59.9, adult Z68.43 Active 789638498 Problem Fatty liver K76.0 Active 99427363 7 Problem Anxiety F41.9 Active 18100970 Problem Major depressive disorder, recurrent episode, moderate F33.1 Active 551255083 Problem Chronic tension-type headache, intractable G44.221 Active 207274464 Problem Right upper quadrant pain R10.11 Acti ve 14890798 Problem Frequent falls R29.6 Active 24815 2002 Problem Crohn's disease of both small and large intestin e with complication K50.819 Active 27937062 Problem Type 2 diabetes mellitus with other specified complication E11.69 Active 865158368541 Problem Hyperlipidemia, unspecified E78.5 Ac tive 94722482 Problem Mixed stress and urge urinary incontinence N39.46 Active 654632008 Problem Sinusitis chronic, frontal J32.1 Act katlyn 43661156 Problem Seasonal allergies J30.2 Active 4 71505790 Problem Other chronic pain G89.29 Active 8 1864234 Problem Hyperlipidemia E78.5 Active 16448 004 Problem Bilateral primary osteoarthritis of knee M17.0 Active 389713103 Problem Essential hypertension I10 Active 76592519 Problem Acquired hypothyroidism E03.9 Active 426775668 Problem History of hysterectomy for benign disease Z90.710 Active 672026841 Problem Morbid (severe) obesity due to excess calories E66 .01 Active 582897232 Problem Other cirrhosis of liver K74.69 Activ e 38775561 Problem Portal hypertension K76.6 Active 21802055 ALLERGIES No Information ENCOUNTERS Encounter Location Date Diagnosis [facility] [address] [place] [address] Jun, Pneumonia of right middle lobe due to in fectious organism J18.1 and Cough R05 [facility] [address] [place] [address] Jun, Acute nasopharyngitis J00 [facility] [address] [facility] [id number] [address] [place] [address] May, Iron deficiency anemia due t o [...] Major depressive disorder, recurrent episode, moderate F33.1 [facility] [address] [facility] [id number] [address] [place] [address] May, Hyperlipidemia, unspecified E78.5 ; Other cirrhosis of liver K74.69 and Iron deficiency anemia due to chronic blood loss D50.0 [facility] [address] [facility] [id number] [address] [place] [address] February, [facility] [address] [place] [address] February, Acute recurrent pansinusitis J01.41 [facility] [address] [place] [address] February, Acute maxillary sinusitis, recurrence no t specified J01.00 [place] [address] [place] [id number] [address] [place] [address] Jan, Bilateral primary osteoarthr itis of knee M17.0 ; Morbid obesity E66.01 ; Viral syndrome B34.9 and Atrial dilatation, left I51.7 [place] [address] [place] [id number] [address] [place] [address] Jan, [place] [address] [place] [id number] [place] [address] Dec, Trigeminy R00.8 [place] [address] [place] [id number] [address] [place] [address] Dec, Essential hypertension I10 ; Morbid obesity E66.01 ; Low back pain M54.5 ; Other chronic pain G89.29 and Pain in right knee M25.561 [place] [address] [place] [id number] [address] [place] [address] Nov, [place] [address] [place] [id number] [place] [address] Oct, Palpitations R00.[address] [address] Oct, Encounter for Medicare ann l wellness [...] small and large intestine with complication K50.819 [place] [address] [place] [id number] [address] [place] [address] Oct, [place] [address] [place] [id number] [address] [place] [address] Oct, Crohn's disease of both smal l and large intestine with complication K50.819 [facility] [address] [place] [id number] [address] [place] [address] Jul, Sinusitis chronic, frontal J 32.1 ; Acute mucoid otitis media of both ears H65.113 ; Seasonal allergies J30.2 and BMI 50.0-59.9, adult Z68.43 [place] [address] [address] Jul, Essential hypertension I10 ; Type 2 diabetes mellitus with other specified complication E11.69 ; BMI 50.0-59.9, adult Z68.43 ; Mixed stress and urge urinary incontinence N39.46 and Mid back pain on right side M54.9 [place] [address] [place] [id number] [address] [place] [address] Jun, Iron deficiency anemia due t o chronic blood loss D50.0 ; Hyperlipidemia E78.5 ; Type 2 diabetes mellitus with other specified complication E11.69 ; Vitamin B12 deficiency E53.8 and Vitamin D deficiency E55.9 [facility] [address] [place] [id number] [address] [place] [address] 14 Jun, 2018 Cough R05 and BMI 50.0-59.9, adult Z68.43 [place] [address] [place] [id number] [address] [place] [address] Jun, [place] [address] [place] [id number] [address] [place] [address] May, Iron deficiency anemia due t o chronic blood loss D50.0 ; Chronic diarrhea K52.9 ; Essential hypertension I10 ; Type 2 diabetes mellitus with other specified complication E11.69 ; Vitamin D deficiency E55.9 ; Colon stricture K56.699 ; Vitamin B12 deficiency E53.8 ; Hyperlipidemia E78.5 and BMI 50.0-59.9, adult Z68.43 [place] [address] [place] [id number] [address] [place] [address] May, [place] [address] [place] [address] [place] [address] Apr, Nonhealing wound of heel S91 .309A and Body mass index (BMI) of 50- 59.9 in adult Z68.43 [facility] [address] [place] [address] Mar, [facility] [address] [address] Mar, BMI 50.0-59.9, adult Z68.43 ; Flank pain R10.9 and Weight loss counseling, encounter for Z71.3 [place] [address] [address] February, [place] [address] [address] Jan, [place] [address] [address] Jan, [facility] [address] [place] [id number] [address] [place] [address] Jan, Diarrhea due to staphylococc us A04.8 and Diarrhea, unspecified type R19.7 [place] [address] [place] [id number] [address] [place] [address] Jan, Acquired hypothyroidism E03. 9 ; Type 2 diabetes mellitus with other specified complication E11.69 ; Hyperlipidemia E78.5 ; Essential hypertension I10 ; Major depressive disorder, recurrent episode, moderate F33.1 and Vitamin D deficiency E55.9 [place] [address] [place] [id number] [address] [place] [address] Jan, Type 2 diabetes mellitus wit h other specified complication E11.69 ; Hyperlipidemia E78.5 ; Essential hypertension I10 ; Acquired hypothyroidism E03.9 ; Major depressive disorder, recurrent episode, moderate F33.1 ; Vitamin D deficiency E55.9 ; Sinus congestion R09.81 and BMI 50.0-59.9, adult Z68.43 [place] [address] [place] [id number] [address] [place] [address] Dec, [facility] [address] [facility] [id number] [address] [place] [address] Sep, Encounter for immunization Z 23 [facility] [address] [facility] [id number] [address] [place] [address] Sep, [facility] [address] [place] [id number] [address] [place] [address] Sep, Vitamin B12 deficiency E53.8 [place] [address] [facility] [id number] [address] [place] [address] Aug, [place] [address] [address] Aug, BMI 60.0-69.9, adult Z68.44 and Acute non-recurrent maxillary sinusitis J01.00 [place] [address] [place] [id number] [address] [place] [address] Aug, [place] [address] [place] [id number] [address] [place] [address] Aug, Medicare annual wellness vis it, initial Z00.00 ; Screening for breast cancer Z12.31 ; BMI 40.0-44.9, adult Z68.41 and Acquired hypothyroidism E03.9 [place] [address] [place] [id number] [address] [place] [address] Jul, Actinic keratosis L57.0 [place] [address] [place] [id number] [address] [place] [address] Jul, Actinic keratosis L57.0 [place] [address] [place] [id number] [address] [place] [address] Jul, Type 2 diabetes mellitus wit h other specified complication E11.69 ; Actinic keratosis L57.0 and Hypothyroidism, unspecified E03.9 [place] [address] [place] [id number] [address] [place] [address] Jul, [place] [address] [address] Jul, [place] [address] [address] Jul, Vitamin B12 deficiency E53.8 [place] [address] [address] Jun, Acquired hypothyroidism E03. 9 and Chronic tension-type headache, intractable G44.221 [place] [address] [address] Jun, Back muscle spasm M62.830 an d BMI 50.0-59.9, adult Z68.43 [place] [address] [address] Jun, Vitamin B12 deficiency E53.8 [place] [address] [address] Jun, Crohn's disease of both smal l and large intestine with complication K50.819 [place] [address] [address] Jun, Crohn's disease of both smal l and large intestine with complication K50.819 [place] [address] [address] May, Hyperlipidemia E78.5 ; Anxie ty F41.9 and Essential hypertension I10 [place] [address] [address] May, [place] [address] [address] May, Encounter for immunization Z 23 and Vitamin B12 deficiency E53.8 [place] [address] [place] [id number] [place] [address] May, [place] [address] [address] Apr, [place] [id number] [facility] [id number] [address] [place] [address] Apr, [place] [address] [facility] [id number] [address] [place] [address] Apr, Crohn's disease of both smal l and large intestine with complication K50.819 [place] [address] [facility] [id number] [address] [place] [address] Apr, Vitamin B12 deficiency E53.8 [place] [address] [facility] [id number] [address] [place] [address] Apr, Crohn's disease of both smal l and large intestine with complication K50.819 and Acute pain of right shoulder M25.511 [place] [address] [facility] [id number] [address] [place] [address] Mar, Type 2 diabetes mellitus wit hout complication E11.9 ; Frequent falls R29.6 and Other chest pain R07.89 [place] [address] [facility] [id number] [address] [place] [address] Mar, [place] [address] [facility] [id number] [address] [place] [address] Mar, [place] [address] [facility] [id number] [address] [place] [address] Mar, Type 2 diabetes mellitus wit hout complication E11.9 and Blurry vision, bilateral H53.8 [place] [address] [facility] [id number] [address] [place] [address] Mar, Vitamin B12 deficiency E53.8 [place] [address] [facility] [id number] [address] [place] [address] Mar, Crohn's disease of both smal l and large intestine with complication K50.819 [place] [address] [facility] [id number] [address] [place] [address] February, Vitamin B12 deficiency E53.8 [place] [address] [facility] [id number] [address] [place] [address] Jan, Crohn's disease of both smal l and large intestine with complication K50.819 [facility] [address] [facility] [id number] [address] [place] [address] Jan, Crohn's disease of both smal l and large intestine with complication K50.819 [facility] [address] [facility] [id number] [address] [place] [address] Jan, Dark brown-colored urine R82 .99 and Acute suppurative otitis media of right ear without spontaneous rupture of tympanic membrane, recurrence not specified H66.001 [facility] [address] [place] [id number] [address] [place] [address] Jan, Encounter for immunization Z 23 [place] [address] [facility] [id number] [address] [place] [address] Dec, Crohn's disease of both smal l and large intestine with complication K50.819 and Eustachian tube dysfunction, right H69.81 [facility] [address] [facility] [id number] [address] [place] [address] Dec, [place] [address] [facility] [id number] [address] [place] [address] Dec, Contusion of right knee, ini tial encounter S80.01XA [place] [address] [place] [id number] [address] [place] [address] Dec, [place] [address] [facility] [id number] [address] [place] [address] Dec, Acute pain of right knee M25 .561 [place] [address] [place] [id number] [address] [place] [address] Dec, Iron deficiency anemia due t o chronic blood loss D50.0 [place] [address] [place] [id number] [address] [place] [address] Dec, Hyperlipidemia E78.5 ; Type 2 diabetes mellitus without complication E11.9 ; Vitamin B12 deficiency E53.8 ; Essential hypertension I10 ; Obstructive sleep apnea on CPAP G47.33 and Periodic limb movement sleep disorder G47.61 [facility] [address] [facility] [id number] [address] [place] [address] 22 Nov, 2016 Type 2 diabetes mellitus wit hout complication E11.9 ; Vitamin B12 deficiency E53.8 ; Hyperlipidemia E78.5 ; Essential hypertension I10 ; Obstructive sleep apnea on CPAP G47.33 ; Periodic limb movement sleep disorder G47.61 ; Anxiety F41.9 ; Acquired hypothyroidism E03.9 and Chronic tension-type headache, intractable G44.221 [place] [address] [facility] [id number] [address] [place] [address] 10 Nov, 2016 Crohn's disease of both smal l and large intestine with complication K50.819 [place] [address] [facility] [id number] [address] [place] [address] Nov, Vitamin B12 deficiency E53.8 [place] [address] [facility] [id number] [address] [place] [address] Oct, [place] [address] [facility] [id number] [address] [place] [address] Oct, Vitamin B12 deficiency E53.8 [place] [address] [facility] [id number] [address] [place] [address] Sep, [place] [address] [facility] [id number] [address] [place] [address] Sep, Vitamin B12 deficiency E53.8 [place] [address] [facility] [id number] [address] [place] [address] Aug, [place] [address] [facility] [id number] [address] [place] [address] 14 Aug, 2016 Vitamin B12 deficiency E53.8 [place] [address] [facility] [id number] [address] [place] [address] Aug, [place] [address] [facility] [id number] [address] [place] [address] Jul, Elevated ALT measurement R74 .0 [place] [address] [address] Jul, Hematuria R31.9 ; Acute righ t-sided thoracic back pain M54.6 ; Major depressive disorder, recurrent episode, moderate F33.1 and Elevated ALT measurement R74.0 [place] [address] [address] Jul, [place] [address] [address] Jul, Elevated ALT measurement R74 .0 [place] [address] [address] Jul, Iron deficiency anemia due t o chronic blood loss D50.0 [place] [address] [address] Jul, Type 2 diabetes mellitus wit hout complication E11.9 ; Acquired hypothyroidism E03.9 ; Iron deficiency anemia due to chronic blood loss D50.0 ; Hyperlipidemia E78.5 and Essential hypertension I10 [place] [address] [place] [id number] [address] [place] [address] Jun, [place] [address] [place] [id number] [address] [place] [address] Jun, Vitamin B12 deficiency E53.8 [place] [address] [address] 16 Jun, 2016 Type 2 diabetes mellitus wit hout complication E11.9 ; Acquired hypothyroidism E03.9 ; Iron deficiency anemia due to chronic blood loss D50.0 ; Hyperlipidemia E78.5 ; Essential hypertension I10 ; Chronic tension-type headache, intractable G44.221 ; Pulsatile tinnitus, bilateral H93.13 ; Obstructive sleep apnea on CPAP G47.33 and Major depressive disorder, recurrent episode, moderate F33.1 [place] [address] [place] [id number] [address] [place] [address] May, Vitamin B12 deficiency E53.8 [facility] [address] [facility] [id number] [address] [place] [address] 08 May, 2016 [facility] [address] [facility] [id number] [address] [place] [address] Apr, Vitamin B12 deficiency E53.8 [facility] [address] [facility] [id number] [address] [place] [address] Apr, [facility] [address] [facility] [id number] [address] [place] [address] Mar, Chronic tension-type headach e, intractable G44.221 and Major depressive disorder, recurrent episode, moderate F33.1 [facility] [address] [facility] [id number] [address] [place] [address] Mar, Vitamin B12 deficiency E53.8 [facility] [address] [place] [id number] [address] [place] [address] February, [facility] [address] [facility] [id number] [address] [place] [address] February, Vitamin B12 deficiency E53.8 [facility] [address] [facility] [id number] [address] [place] [address] February, [facility] [address] [facility] [id number] [address] [place] [address] Jan, Dysuria R30.0 [facility] [address] [facility] [id number] [address] [place] [address] 22 Jan, 2016 Type 2 diabetes mellitus wit hout complication E11.9 and Essential hypertension I10 [facility] [address] [facility] [id number] [address] [place] [address] 15 Jan, 2016 Chronic diarrhea K52.9 [facility] [address] [facility] [id number] [address] [place] [address] 13 Jan, 2016 [facility] [address] [place] [id number] [address] [place] [address] Jan, Chronic diarrhea K52.9 [facility] [id number] [place] [address] Jan, [facility] [address] [facility] [id number] [address] [place] [address] Jan, Dysuria R30.0 [facility] [address] [address] Jan, Vitamin B12 deficiency E53.8 [facility] [address] [address] 07 Jan, 2016 Dysuria R30.0 and Iron defic iency anemia due to chronic blood loss D50.0 [place] [address] [place] [id number] [address] [place] [address] 05 Jan, 2016 Dysuria R30.0 [place] [address] [address] Jan, [facility] [address] [place] [id number] [address] [place] [address] 15 Dec, 2015 [place] [address] [address] Dec, Iron deficiency anemia due t o chronic blood loss D50.0 [place] [address] [place] [id number] [address] [place] [address] 10 Dec, 2015 Dysuria R30.0 ; Fatigue R53. 83 ; Hyperlipidemia E78.5 and Diarrhea R19.7 [place] [address] [place] [address] Dec, [place] [address] [address] 02 Dec, 2015 [facility] [address] [place] [id number] [address] [place] [address] 10 Nov, 2015 Vitamin B12 deficiency E53.8 [place] [address] [address] Oct, Vitamin B12 deficiency E53.8 [facility] [address] [facility] [id number] [address] [place] [address] 12 Oct, 2015 [facility] [address] [facility] [id number] [address] [place] [address] 09 Oct, 2015 Headache R51 [facility] [address] [place] [id number] [address] [place] [address] 07 Oct, 2015 Essential hypertension I10 ; Type 2 diabetes mellitus without complication E11.9 ; Vitamin B12 deficiency E53.8 ; Acquired hypothyroidism E03.9 ; Iron deficiency anemia due to chronic blood loss D50.0 and Hyperlipidemia E78.5 [place] [address] [place] [id number] [address] [place] [address] 17 Sep, 2015 Essential hypertension I10 ; Vitamin B12 deficiency E53.8 ; Iron deficiency anemia due to chronic blood loss D50.0 ; Type 2 diabetes mellitus without complication E11.9 ; Hyperlipidemia E78.5 and Acquired hypothyroidism E03.9 [facility] [address] [place] [id number] [address] [place] [address] Sep, [facility] [address] [address] Sep, [facility] [address] [place] [id number] [address] [place] [address] 05 Jul, 2015 [facility] [address] [place] [id number] [address] [place] [address] Jun, [facility] [address] [place] [id number] [address] [place] [address] 18 Jun, 2015 [facility] [address] [id number] 15 Jun, 2015 Hyperlipidemia 272.4 ; Iron deficiency anemia 280.9 ; Hypothyroidism 244.9 ; Diabetes mellitus without mention of complication, type II or unspecified type, not stated as uncontrolled 250.00 and Hypertension 401.9 [facility] [address] [id number] Jun, [facility] [address] [facility] [id number] [place] [phone] Jun, [facility] [address] [facility] [id number] [place] [id number] May, Hyperlipidemia 272.4 [facility] [address] [facility] [id number] [address] [place] [id number] May, [facility] [id number] [place] [phone] May, [facility] [address] [facility] [id number] [place] [id number] Apr, Diabetes mellitus without me ntion of complication, type II or unspecified type, not stated as uncontrolled 250.00 ; Hypothyroidism 244.9 ; Hyperlipidemia 272.4 ; Pain in joint, lower leg 719.46 and RUQ pain 789.01 [facility] [id number] [place] [id number] Mar, Sinusitis 473.9 [facility] [address] [facility] [id number] [place] [address] Mar, [facility] [id number] [place] [address] Mar, [facility] [address] [facility] [id number] [address] [place] [address] Mar, Hematochezia 578.1 [facility] [address] [facility] [id number] [address] [place] [address] February, Sinusitis 473.9 [facility] [address] [id number] [address] [place] [address] February, [facility] [address] [facility] [id number] [address] [place] [address] Jan, [facility] [address] [id number] [address] [place] [address] Jan, [facility] [address] [id number] [address] [place] [address], [place] [address] Dec, [facility] [address] [id number] [address] [place] [address], [place] [address] Dec, [facility] [address] [id number] [address] [place] [address], [place] [address] Dec, [facility] [address] [id number] [address] [place] [address], [place] [address] Dec, [facility] [address] [id number] [address] [place] [address], [place] [address] Dec, [facility] [address] [id number] [address] [place] [address], [place] [address] Dec, [facility] [address] [id number] [address] [place] [address], [place] [address] Dec, [facility] [address] [id number] [address] [place] [address], [place] [address] Dec, [facility] [address] [id number] [address] [place] [address], [place] [address] Dec, [facility] [address] [id number] [address] [place] [address], [place] [address] Dec, [facility] [address] [id number] [address] [place] [address], [place] [address] Dec, [facility] [address] [id number] [address] [place] [address], [place] [address] Nov, [facility] [address] [id number] [address] [place] [address], [place] [address] Nov, [facility] [address] [id number] [address] [place] [address], [place] [address] Nov, [facility] [address] [id number] [address] [place] [address], [place] [address] Nov, [facility] [address] [id number] [address] [place] [address], [place] [address] Oct, [facility] [address] [id number] [address] [place] [address], [place] [address] Oct, [facility] [address] [id number] [address] [place] [address], [place] [address] Oct, [facility] [address] [id number] [address] [place] [address], [place] [address] Oct, [facility] [address] [id number] [address] [place] [address], [place] [address] Oct, [facility] [address] [id number] [address] [place] [address], [place] [address] Oct, [facility] [address] [id number] [address] [place] [address], [place] [address] Sep, [facility] [address] [id number] [address] [place] [address], [place] [address] Sep, [facility] [address] [id number] [address] [place] [address], [place] [address] Sep, [facility] [address] [id number] [address] [place] [address], [place] [address] Sep, [facility] [address] [id number] [address] [place] [address], [place] [address] Sep, [facility] [address] [id number] [address] [place] [address], [place] [address] Sep, [facility] [address] [id number] [address] [place] [address], [place] [address] Sep, [facility] [address] [id number] [address] [place] [address], [place] [address] Aug, [facility] [address] [id number] [address] [place] [address], [place] [address] Aug, [facility] [address] [id number] [address] [place] [address], [place] [address] Aug, [facility] [address] [id number] [address] [place] [address], [place] [address] Aug, [facility] [address] [id number] [address] [place] [address], [place] [address] Aug, [facility] [address] [id number] [address] [place] [address], [place] [address] Aug, [facility] [address] [id number] [address] [place] [address], [place] [address] Aug, [facility] [address] [id number] [address] [place] [address], [place] [address] Aug, [facility] [address] [id number] [address] [place] [address], [place] [address] Aug, [facility] [address] [id number] [address] [place] [address], [place] [address] Aug, [facility] [address] [id number] [address] [place] [address], [place] [address] Aug, [facility] [address] [id number] [address] [place] [address], [place] [address] Aug, [facility] [address] [id number] [address] [place] [address], [place] [address] Aug, [facility] [address] [id number] [address] [place] [address], [place] [address] Aug, [facility] [address] [id number] [address] [place] [address], [place] [address] Jul, [facility] [address] [id number] [address] [place] [address], [place] [address] Jul, [facility] [address] [id number] [address] [place] [address], [place] [address] Jul, [facility] [address] [id number] [address] [place] [address], [place] [address] Jul, [facility] [address] [id number] [address] [place] [address], [place] [address] 24 Jun, 2013 [facility] [address] [id number] [address] [place] [address], [place] [address] 24 Jun, 2013 [facility] [address] [id number] [address] [place] [address], [place] [address] 23 Jun, 2013 [facility] [address] [id number] [address] [place] [address], [place] [address] 23 Jun, 2013 [facility] [address] [id number] [address] [place] [address], [place] [address] 19 Jun, 2013 [facility] [address] [id number] [address] [place] [address], [place] [address] 19 Jun, 2013 [facility] [address] [id number] [address] [place] [address], [place] [address] 11 Jun, 2013 [facility] [address] [id number] [address] [place] [address], [place] [address] 11 Jun, 2013 [facility] [address] [id number] [address] [place] [address], [place] [address] 11 Jun, 2013 [facility] [address] [id number] [address] [place] [address], [place] [address] 11 Jun, 2013 [facility] [address] [id number] [address] [place] [address], [place] [address] 10 Jun, 2013 [facility] [address] [id number] [address] [place] [address], [place] [address] 10 Jun, 2013 [facility] [address] [id number] [address] [place] [address], [place] [address] 09 Jun, 2013 [facility] [address] [id number] [address] [place] [address], [place] [address] 09 Jun, 2013 [facility] [address] [id number] [address] [place] [address], [place] [address] 14 May, 2014 [facility] [address] [id number] [address] [place] [address], [place] [address] 14 May, 2014 [facility] [address] [id number] [facility] [address] May, [facility] [address] [id number] [facility] [address] May, [facility] [address] [id number] [facility] [address] May, [facility] [address] [id number] [address] [place] [address], [place] [address] May, [facility] [address] [id number] [facility] [address] Apr, [facility] [address] [id number] [address] [place] [address], [place] [address] Apr, [facility] [address] [id number] [address] [place] [address], [place] [address] Apr, [facility] [address] [id number] [address] [place] [address], [place] [address] Apr, [facility] [address] [id number] [address] [place] [address], [place] [address] Apr, [facility] [address] [id number] [address] [place] [address], [place] [address] Apr, [facility] [address] [id number] [address] [place] [address], [place] [address] Apr, [facility] [address] [id number] [address] [place] [address], [place] [address] Apr, [facility] [address] [id number] [address] [place] [address], [place] [address] Apr, [facility] [address] [id number] [address] [place] [address], [place] [address] Apr, [facility] [address] [id number] [address] [place] [address], [place] [address] Apr, [facility] [address] [id number] [address] [place] [address], [place] [address] Mar, [facility] [address] [id number] [address] [place] [address], [place] [address] Mar, [facility] [address] [id number] [address] [place] [address], [place] [address] Mar, [facility] [address] [id number] [address] [place] [address], [place] [address] Mar, [facility] [address] [id number] [address] [place] [address], [place] [address] February, [facility] [address] [id number] [address] [place] [address], [place] [address] February, [facility] [address] [id number] [address] [place] [address], [place] [address] Jan, [facility] [address] [id number] [address] [place] [address], [place] [address] Jan, [address] [id number] Jan, [facility] [address] [id number] [address] [place] [address], [place] [address] Jan, [facility] [address] [id number] [address] [place] [address], [place] [address] Jan, [facility] [address] [id number] [address] [place] [address], [place] [address] Jan, [facility] [address] [id number] [address] [place] [address], [place] [address] Jan, [facility] [address] [id number] [address] [place] [address], [place] [address] Jan, [facility] [address] [id number] [address] [place] [address], [place] [address] Jan, [facility] [address] [id number] [address] [place] [address], [place] [address] Jan, [facility] [address] [id number] [address] [place] [address], [place] [address] Jan, [facility] [address] [id number] [facility] [address] Jan, [facility] [address] [id number] [address] [place] [address], [place] [address] Jan, [facility] [address] [id number] [facility] [address] Jan, [facility] [address] [id number] [address] [place] [address], [place] [address] Jan, [facility] [address] [id number] [address] [place] [address], [place] [address] Jan, [facility] [address] [id number] [address] [place] [address], [place] [address] Jan, [facility] [address] [id number] [address] [place] [address], [place] [address] Dec, [facility] [address] [id number] [address] [place] [address], [place] [address] Dec, [facility] [address] [id number] [address] [place] [address], [place] [address] Dec, [facility] [address] [id number] [address] [place] [address], [place] [address] Dec, [facility] [address] [id number] [address] [place] [address], [place] [address] Dec, [facility] [address] [id number] [address] [place] [address], [place] [address] Dec, [facility] [address] [id number] [address] [place] [address], [place] [address] Dec, [facility] [address] [id number] [address] [place] [address], [place] [address] Nov, [facility] [address] [id number] [address] [place] [address], [place] [address] Nov, [facility] [place] [address] [id number] [address] [place] [address] Nov, [facility] [address] [id number] [address] [place] [address], [place] [address] Nov, [facility] [address] [id number] [address] [place] [address], [place] [address] Nov, [facility] [address] [id number] [address] [place] [address], [place] [address] Nov, [facility] [address] [id number] [address] [place] [address], [place] [address] Nov, [facility] [address] [id number] [address] [place] [address], [place] [address] Oct, [facility] [address] [id number] [address] [place] [address], [place] [address] Oct, [facility] [address] [id number] [address] [place] [address], [place] [address] Sep, [facility] [address] [id number] [address] [place] [address], [place] [address] Sep, [facility] [address] [id number] [address] [place] [address], [place] [address] Sep, [facility] [address] [id number] [address] [place] [address], [place] [address] Sep, [facility] [address] [id number] [address] [place] [address], [place] [address] Sep, [facility] [address] [id number] [address] [place] [address], [place] [address] Sep, [facility] [address] [id number] [address] [place] [address], [place] [address] Sep, [facility] [address] [id number] [address] [place] [address], [place] [address] Sep, [facility] [address] [id number] [address] [place] [address], [place] [address] Sep, [facility] [address] [id number] [address] [place] [address] Sep, [facility] [address] [id number] [address] [place] [address] Aug, [facility] [address] [id number] [address] [place] [address] Aug, [facility] [address] [id number] [address] [place] [address] Aug, [facility] [address] [id number] [address] [place] [address] Aug, [facility] [address] [id number] [address] [place] [address] Aug, [facility] [address] [id number] [address] [place] [address] Jul, [facility] [address] [id number] [address] [place] [address] Jul, [facility] [address] [id number] [address] [place] [address] Jul, [facility] [address] [id number] [address] [place] [address] Jul, IMMUNIZATIONS No Known Immunizations SOCIAL HISTORY [...]
--- OUTSIDE RECORDS SUMMARY | 2020-03-16 11:52 | XMS REPORT ---
Author Author Swathi DORAN Organization [facility] Address [address] [place] [address] Care Team Providers Care Tubing Drier Name Role Phone BRENTON DORAN Unavailable PROBLEMS Type Condition ICD9-CM Code NLC19-EL Code Onset Dates Condition S tatus SNOMED Code Problem Sensorineural hearing loss of right ear H90.41 Active 54871556 Problem Obstructive sleep apnea on CPAP G47.33 Active 83799542 Problem Periodic limb movement sleep disorder G47.61 Active 287101814 Problem Iron deficiency anemia due to chronic blood loss D 50.0 Active 76910743 Problem MACHUCA (nonalcoholic steatohepatitis) K75.81 Active 705639987 Problem Vitamin B12 deficiency E53.8 Active 852743876 Problem Chronic diarrhea K52.9 Active 236 028462 Problem Vitamin D deficiency E55.9 Active 15104667 Problem BMI 50.0-59.9, adult Z68.43 Active 356481920 Problem Fatty liver K76.0 Active 45820528 7 Problem Anxiety F41.9 Active 12083010 Problem Major depressive disorder, recurrent episode, moderate F33.1 Active 697375369 Problem Chronic tension-type headache, intractable G44.221 Active 591876750 Problem Right upper quadrant pain R10.11 Acti ve 79903389 Problem Frequent falls R29.6 Active 50929 2002 Problem Crohn's disease of both small and large intestin e with complication K50.819 Active 87567371 Problem Type 2 diabetes mellitus with other specified complication E11.69 Active [id number] Problem Hyperlipidemia, unspecified E78.5 Ac tive 83651400 Problem Mixed stress and urge urinary incontinence N39.46 Active 281900212 Problem Sinusitis chronic, frontal J32.1 Act katlyn 72655792 Problem Seasonal allergies J30.2 Active 4 19753727 Problem Other chronic pain G89.29 Active 8 8298976 Problem Hyperlipidemia E78.5 Active 32768 004 Problem Bilateral primary osteoarthritis of knee M17.0 Active 624238246 Problem Essential hypertension I10 Active 23526586 Problem Acquired hypothyroidism E03.9 Active 122585611 Problem History of hysterectomy for benign disease Z90.710 Active 418028353 Problem Morbid (severe) obesity due to excess calories E66 .01 Active 740549238 Problem Other cirrhosis of liver K74.69 Activ e 94767654 Problem Portal hypertension K76.6 Active 98092260 ALLERGIES Substance Reaction Event Type Date Status Adhesive Unknown Non Drug Allergy Dec, Active Tetanus&diphtheria Toxoid Unknown Non Drug Allergy Dec, 9 Active Penicillin V Potassium Unknown Drug Allergy Dec, Activ e Influenza Virus Vacc,specific Got flu and was told to never get the vaccine again Non Drug Allergy Dec, Active Lipitor abdominal pain Drug Allergy Dec, Active Dilaudid Unknown Drug Allergy Dec, Active Bactrim Unknown Drug Allergy Dec, Active Amoxicillin Unknown Drug Allergy Dec, Active Niacin Unknown Drug Allergy Dec, Active Morphine Sulfate Unknown Drug Allergy Dec, Active Sulfamethoxazole-Trimethoprim Unknown Drug Allergy Dec, 9 Active ENCOUNTERS Encounter Location Date Diagnosis [facility] [address] [facility] [place] [address] Jun, Pneumonia of right middle lobe due to in fectious organism J18.1 and Cough R05 [facility] [address] [facility] [place] [address] 09 Jun, 2019 Acute nasopharyngitis J00 [facility] [address] [facility] [id number] [address] [place] [address] May, Iron deficiency anemia due t o [...] Major depressive disorder, recurrent episode, moderate F33.1 [facility] [address] [facility] [id number] [address] [address] May, Hyperlipidemia, unspecified E78.5 ; Other cirrhosis of liver K74.69 and Iron deficiency anemia due to chronic blood loss D50.0 [place] [address] [facility] [id number] [address] [place] [address] February, [facility] [address] [facility] [place] [address] February, Acute recurrent pansinusitis J01.41 [facility] [address] [facility] [place] [address] February, Acute maxillary sinusitis, recurrence no t specified J01.00 [place] [address] [facility] [id number] [address] [place] [address] Jan, Bilateral primary osteoarthr itis of knee M17.0 ; Morbid obesity E66.01 ; Viral syndrome B34.9 and Atrial dilatation, left I51.7 [place] [address] [place] [id number] [address] [place] [address] Jan, [place] [address] [place] [id number] [address] [place] [address] Dec, Trigeminy R00.8 [place] [address] [facility] [id number] [address] [place] [address] Dec, Essential hypertension I10 ; Morbid obesity E66.01 ; Low back pain M54.5 ; Other chronic pain G89.29 and Pain in right knee M25.561 [place] [address] [place] [id number] [address] [place] [address] Nov, [place] [address] [place] [id number] [address] [place] [address] Oct, Palpitations R00.2 [place] [address] [place] [id number] [address] [place] [address] Oct, Encounter for Medicare annua l wellness [...] small and large intestine with complication K50.819 [place] [address] [address] Oct, [place] [address] [address] Oct, Crohn's disease of both smal l and large intestine with complication K50.819 [facility] [place] [address] [address] 11 Jul, 2018 Sinusitis chronic, frontal J 32.1 ; Acute mucoid otitis media of both ears H65.113 ; Seasonal allergies J30.2 and BMI 50.0-59.9, adult Z68.43 [place] [address] [address] 02 Jul, 2018 Essential hypertension I10 ; Type 2 diabetes mellitus with other specified complication E11.69 ; BMI 50.0-59.9, adult Z68.43 ; Mixed stress and urge urinary incontinence N39.46 and Mid back pain on right side M54.9 [place] [address] [address] 26 Jun, 2018 Iron deficiency anemia due t o chronic blood loss D50.0 ; Hyperlipidemia E78.5 ; Type 2 diabetes mellitus with other specified complication E11.69 ; Vitamin B12 deficiency E53.8 and Vitamin D deficiency E55.9 [facility] [address] [address] 14 Jun, 2018 Cough R05 and BMI 50.0-59.9, adult Z68.43 [place] [address] [address] 06 Jun, 2018 [place] [address] [address] May, Iron deficiency anemia due t o chronic blood loss D50.0 ; Chronic diarrhea K52.9 ; Essential hypertension I10 ; Type 2 diabetes mellitus with other specified complication E11.69 ; Vitamin D deficiency E55.9 ; Colon stricture K56.699 ; Vitamin B12 deficiency E53.8 ; Hyperlipidemia E78.5 and BMI 50.0-59.9, adult Z68.43 [place] [address] [address] May, [place] [address] [address] Apr, Nonhealing wound of heel S91 .309A and Body mass index (BMI) of 50- 59.9 in adult Z68.43 [place] [address] [address] Mar, [place] [address] [address] Mar, BMI 50.0-59.9, adult Z68.43 ; Flank pain R10.9 and Weight loss counseling, encounter for Z71.3 [place] [address] [address] February, [place] [address] [address] Jan, [place] [address] [address] Jan, [facility] [address] [place] [id number] [address] [place] [address] Jan, Diarrhea due to staphylococc us A04.8 and Diarrhea, unspecified type R19.7 [place] [address] [place] [id number] [address] [place] [address] Jan, Acquired hypothyroidism E03. 9 ; Type 2 diabetes mellitus with other specified complication E11.69 ; Hyperlipidemia E78.5 ; Essential hypertension I10 ; Major depressive disorder, recurrent episode, moderate F33.1 and Vitamin D deficiency E55.9 [place] [address] [facility] [id number] [address] [place] [address] Jan, Type 2 diabetes mellitus wit h other specified complication E11.69 ; Hyperlipidemia E78.5 ; Essential hypertension I10 ; Acquired hypothyroidism E03.9 ; Major depressive disorder, recurrent episode, moderate F33.1 ; Vitamin D deficiency E55.9 ; Sinus congestion R09.81 and BMI 50.0-59.9, adult Z68.43 [place] [address] [place] [id number] [address] [place] [address] Dec, [place] [address] [place] [id number] [place] [address] Sep, Encounter for immunization Z 23 [place] [address] [place] [id number] [address] [place] [address] Sep, [place] [address] [place] [id number] [place] [address] Sep, Vitamin B12 deficiency E53.8 [place] [address] [place] [id number] [address] [place] [id number] 24 Aug, 2017 [place] [address] [place] [id number] [place] [address] 20 Aug, 2017 BMI 60.0-69.9, adult Z68.44 and Acute non-recurrent maxillary sinusitis J01.00 [place] [address] [place] [id number] [address] [place] [address] 14 Aug, 2017 [place] [address] [place] [id number] [address] [place] [address] 02 Aug, 2017 Medicare annual wellness vis it, initial Z00.00 ; Screening for breast cancer Z12.31 ; BMI 40.0-44.9, adult Z68.41 and Acquired hypothyroidism E03.9 [place] [address] [place] [id number] [address] [place] [address] 27 Jul, 2017 Actinic keratosis L57.0 [place] [address] [facility] [id number] [address] [place] [address] Jul, Actinic keratosis L57.0 [place] [address] [place] [id number] [address] [place] [address] Jul, Type 2 diabetes mellitus wit h other specified complication E11.69 ; Actinic keratosis L57.0 and Hypothyroidism, unspecified E03.9 [place] [address] [facility] [id number] [address] [place] [address] Jul, [place] [address] [place] [id number] [address] [place] [address] Jul, [place] [address] [place] [id number] [place] [address] Jul, Vitamin B12 deficiency E53.8 [place] [address] [place] [id number] [address] [place] [address] Jun, Acquired hypothyroidism E03. 9 and Chronic tension-type headache, intractable G44.221 [place] [address] [place] [id number] [address] [place] [address] Jun, Back muscle spasm M62.830 an d BMI 50.0-59.9, adult Z68.43 [place] [address] [place] [id number] [address] [place] [address] Jun, Vitamin B12 deficiency E53.8 [place] [address] [place] [id number] [address] [place] [address] Jun, Crohn's disease of both smal l and large intestine with complication K50.819 [place] [address] [place] [id number] [address] [place] [address] Jun, Crohn's disease of both smal l and large intestine with complication K50.819 [place] [address] [place] [id number] [address] [place] [address] May, Hyperlipidemia E78.5 ; Anxie ty F41.9 and Essential hypertension I10 [place] [address] [id number] [address] [place] [address] May, [facility] [address] [facility] [id number] [address] [place] [address] May, Encounter for immunization Z 23 and Vitamin B12 deficiency E53.8 [facility] [address] [facility] [id number] [address] [place] [address] May, [facility] [address] [facility] [id number] [address] [place] [address] Apr, [facility] [address] [facility] [id number] [address] [place] [address] Apr, [facility] [address] [facility] [id number] [address] [place] [address] Apr, Crohn's disease of both smal l and large intestine with complication K50.819 [place] [address] [facility] [id number] [address] [place] [address] Apr, Vitamin B12 deficiency E53.8 [facility] [address] [facility] [id number] [address] [place] [address] Apr, Crohn's disease of both smal l and large intestine with complication K50.819 and Acute pain of right shoulder M25.511 [place] [address] [facility] [id number] [address] [place] [address] Mar, Type 2 diabetes mellitus wit hout complication E11.9 ; Frequent falls R29.6 and Other chest pain R07.89 [facility] [address] [facility] [id number] [address] [place] [phone] Mar, [facility] [address] [facility] [id number] [address] [place] [address] Mar, [facility] [address] [facility] [id number] [address] [place] [address] Mar, Type 2 diabetes mellitus wit hout complication E11.9 and Blurry vision, bilateral H53.8 [place] [address] [facility] [id number] [address] [place] [address] Mar, Vitamin B12 deficiency E53.8 [facility] [address] [facility] [id number] [address] [place] [address] Mar, Crohn's disease of both smal l and large intestine with complication K50.819 [place] [address] [facility] [id number] [address] [place] [address] February, Vitamin B12 deficiency E53.8 [place] [address] [facility] [id number] [address] [place] [address] Jan, Crohn's disease of both smal l and large intestine with complication K50.819 [facility] [address] [place] [id number] [address] [place] [address] Jan, Crohn's disease of both smal l and large intestine with complication K50.819 [facility] [address] [facility] [id number] [address] [place] [address] Jan, Dark brown-colored urine R82 .99 and Acute suppurative otitis media of right ear without spontaneous rupture of tympanic membrane, recurrence not specified H66.001 [place] [address] [place] [id number] [address] [place] [address] Jan, Encounter for immunization Z 23 [place] [address] [place] [id number] [address] [place] [address] Dec, Crohn's disease of both smal l and large intestine with complication K50.819 and Eustachian tube dysfunction, right H69.81 [facility] [address] [facility] [id number] [address] [place] [address] Dec, [place] [address] [place] [id number] [address] [place] [address] Dec, Contusion of right knee, ini tial encounter S80.01XA [place] [address] [place] [id number] [address] [place] [address] Dec, [place] [address] [place] [id number] [address] [place] [address] Dec, Acute pain of right knee M25 .561 [place] [address] [address] Dec, Iron deficiency anemia due t o chronic blood loss D50.0 [place] [address] [address] Dec, Hyperlipidemia E78.5 ; Type 2 diabetes mellitus without complication E11.9 ; Vitamin B12 deficiency E53.8 ; Essential hypertension I10 ; Obstructive sleep apnea on CPAP G47.33 and Periodic limb movement sleep disorder G47.61 [place] [address] [address] 22 Nov, 2016 Type 2 diabetes mellitus wit hout complication E11.9 ; Vitamin B12 deficiency E53.8 ; Hyperlipidemia E78.5 ; Essential hypertension I10 ; Obstructive sleep apnea on CPAP G47.33 ; Periodic limb movement sleep disorder G47.61 ; Anxiety F41.9 ; Acquired hypothyroidism E03.9 and Chronic tension-type headache, intractable G44.221 [place] [address] [address] 10 Nov, 2016 Crohn's disease of both smal l and large intestine with complication K50.819 [place] [address] [place] [id number] [address] [place] [address] Nov, Vitamin B12 deficiency E53.8 [place] [address] [place] [id number] [place] [address] Oct, [place] [address] [address] Oct, Vitamin B12 deficiency E53.8 [place] [address] [place] [id number] [place] [address] Sep, [place] [address] [address] Sep, Vitamin B12 deficiency E53.8 [facility] [address] [facility] [id number] [address] [place] [address] Aug, [facility] [address] [facility] [id number] [address] [place] [address] Aug, Vitamin B12 deficiency E53.8 [facility] [address] [facility] [id number] [address] [place] [address] Aug, [facility] [address] [facility] [id number] [address] [place] [address] Jul, Elevated ALT measurement R74 .0 [place] [address] [facility] [id number] [address] [place] [address] Jul, Hematuria R31.9 ; Acute righ t-sided thoracic back pain M54.6 ; Major depressive disorder, recurrent episode, moderate F33.1 and Elevated ALT measurement R74.0 [place] [id number] [place] [address] Jul, [facility] [address] [facility] [id number] [address] [place] [address] Jul, Elevated ALT measurement R74 .0 [facility] [address] [place] [id number] [address] [place] [address] Jul, Iron deficiency anemia due t o chronic blood loss D50.0 [place] [address] [place] [id number] [address] [place] [address] Jul, Type 2 diabetes mellitus wit hout complication E11.9 ; Acquired hypothyroidism E03.9 ; Iron deficiency anemia due to chronic blood loss D50.0 ; Hyperlipidemia E78.5 and Essential hypertension I10 [facility] [address] [facility] [id number] [address] [place] [address] Jun, [facility] [address] [facility] [id number] [address] [place] [address] Jun, Vitamin B12 deficiency E53.8 [facility] [address] [place] [id number] [address] [place] [address] 16 Jun, 2016 Type 2 diabetes mellitus wit hout complication E11.9 ; Acquired hypothyroidism E03.9 ; Iron deficiency anemia due to chronic blood loss D50.0 ; Hyperlipidemia E78.5 ; Essential hypertension I10 ; Chronic tension-type headache, intractable G44.221 ; Pulsatile tinnitus, bilateral H93.13 ; Obstructive sleep apnea on CPAP G47.33 and Major depressive disorder, recurrent episode, moderate F33.1 [place] [address] [place] [id number] [address] [place] [address] May, Vitamin B12 deficiency E53.8 [place] [address] [place] [id number] [address] [place] [address] May, [place] [address] [place] [id number] [address] [place] [address] Apr, Vitamin B12 deficiency E53.8 [place] [address] [place] [id number] [address] [place] [address] Apr, [place] [address] [place] [id number] [address] [place] [address] Mar, Chronic tension-type headach e, intractable G44.221 and Major depressive disorder, recurrent episode, moderate F33.1 [place] [address] [place] [id number] [address] [place] [address] Mar, Vitamin B12 deficiency E53.8 [place] [address] [place] [id number] [address] [place] [address] February, [place] [address] [place] [id number] [address] [place] [address] February, Vitamin B12 deficiency E53.8 [place] [address] [place] [id number] [address] [place] [address] February, [place] [address] [place] [id number] [address] [place] [address] Jan, Dysuria R30.0 [place] [address] [place] [id number] [place] [address] 22 Jan, 2016 Type 2 diabetes mellitus wit hout complication E11.9 and Essential hypertension I10 [facility] [address] [facility] [id number] [address] [place] [address] 15 Jan, 2016 Chronic diarrhea K52.9 [facility] [address] [facility] [id number] [address] [place] [address] 13 Jan, 2016 [facility] [address] [facility] [id number] [address] [place] [address] Jan, Chronic diarrhea K52.9 [facility] [address] [facility] [id number] [address] [place] [address] Jan, [facility] [address] [facility] [id number] [address] [place] [address] Jan, Dysuria R30.0 [facility] [id number] [place] [address] 07 Jan, 2016 Vitamin B12 deficiency E53.8 [facility] [address] [facility] [id number] [address] [place] [address] 07 Jan, 2016 Dysuria R30.0 and Iron defic iency anemia due to chronic blood loss D50.0 [facility] [address] [facility] [id number] [address] [place] [address] 05 Jan, 2016 Dysuria R30.0 [facility] [address] [place] [id number] [address] [place] [address] 04 Jan, 2016 [facility] [address] [facility] [id number] [address] [place] [address] 15 Dec, 2015 [facility] [address] [place] [id number] [address] [place] [address] 11 Dec, 2015 Iron deficiency anemia due t o chronic blood loss D50.0 [facility] [address] [facility] [id number] [address] [place] [id number] 10 Dec, 2015 Dysuria R30.0 ; Fatigue R53. 83 ; Hyperlipidemia E78.5 and Diarrhea R19.7 [facility] [address] [facility] [id number] [address] [place] [phone] Dec, [facility] [address] [facility] [id number] [address] [place] [phone] Dec, [facility] [address] [facility] [id number] [address] [place] [address] Nov, Vitamin B12 deficiency E53.8 [facility] [address] [facility] [id number] [address] [place] [address] Oct, Vitamin B12 deficiency E53.8 [facility] [address] [facility] [id number] [address] [place] [id number] Oct, [facility] [address] [facility] [id number] [address] [place] [phone] 09 Oct, 2015 Headache R51 [facility] [address] [facility] [id number] [address] [place] [address] Oct, Essential hypertension I10 ; Type 2 diabetes mellitus without complication E11.9 ; Vitamin B12 deficiency E53.8 ; Acquired hypothyroidism E03.9 ; Iron deficiency anemia due to chronic blood loss D50.0 and Hyperlipidemia E78.5 [facility] [address] [facility] [id number] [address] [place] [id number] 17 Sep, 2015 Essential hypertension I10 ; Vitamin B12 deficiency E53.8 ; Iron deficiency anemia due to chronic blood loss D50.0 ; Type 2 diabetes mellitus without complication E11.9 ; Hyperlipidemia E78.5 and Acquired hypothyroidism E03.9 [facility] [address] [facility] [id number] [address] [place] [id number] Sep, [facility] [address] [facility] [id number] [address] [place] [id number] Sep, [facility] [address] [facility] [id number] [address] [place] [id number] 05 Jul, 2015 [facility] [address] [facility] [id number] [address] [place] [id number] Jun, [facility] [address] [address] Jun, [facility] [address] [address] Jun, Hyperlipidemia 272.4 ; Iron deficiency anemia 280.9 ; Hypothyroidism 244.9 ; Diabetes mellitus without mention of complication, type II or unspecified type, not stated as uncontrolled 250.00 and Hypertension 401.9 [facility] [id number] [place] [address] Jun, [facility] [address] [address] Jun, [facility] [address] [address] May, Hyperlipidemia 272.4 [facility] [address] [address] May, [facility] [address] [address] May, [facility] [address] [address] Apr, Diabetes mellitus without me ntion of complication, type II or unspecified type, not stated as uncontrolled 250.00 ; Hypothyroidism 244.9 ; Hyperlipidemia 272.4 ; Pain in joint, lower leg 719.46 and RUQ pain 789.01 [facility] [address] [address] Mar, Sinusitis 473.[address] [address] Mar, [facility] [address] [address] Mar, [facility] [address] [address] Mar, Hematochezia 578.1 [facility] [address] [id number] [address] [place] [address] February, Sinusitis 473.9 [facility] [address] [id number] [address] [place] [address], [place] [address] February, [facility] [address] [id number] [address] [place] [address], [place] [address] 14 Jan, 2015 [facility] [address] [id number] [address] [place] [address] Jan, [facility] [address] [id number] [address] [place] [address], [place] [address] 24 Dec, 2014 [facility] [address] [id number] [address] [place] [address] Dec, [facility] [address] [id number] [address] [place] [address], [place] [address] Dec, [facility] [address] [id number] [address] [place] [address], [place] [address] 24 Dec, 2014 [facility] [address] [id number] [address] [place] [address], [place] [address] Dec, [facility] [address] [id number] [address] [place] [address], [place] [address] Dec, [facility] [address] [id number] [address] [place] [address] Dec, [facility] [address] [id number] [address] [place] [address] Dec, [facility] [address] [id number] [address] [place] [address], [place] [address] Dec, [facility] [address] [id number] [address] [place] [address] Dec, [facility] [address] [id number] [address] [place] [address] Dec, [facility] [address] [id number] [address] [place] [address], [place] [address] Nov, [facility] [address] [id number] [address] [place] [address], [place] [address] Nov, [facility] [address] [id number] [address] [place] [address], [place] [address] Nov, [facility] [address] [id number] [address] [place] [address], [place] [address] Nov, [facility] [address] [id number] [address] [place] [address], [place] [address] Oct, [facility] [address] [id number] [address] [place] [address], [place] [address] Oct, [facility] [address] [id number] [address] [place] [address], [place] [address] Oct, [facility] [address] [id number] [address] [place] [address], [place] [address] Oct, [facility] [address] [id number] [address] [place] [address], [place] [address] Oct, [facility] [address] [id number] [address] [place] [address], [place] [address] Oct, [facility] [address] [id number] [address] [place] [address], [place] [address] Sep, [facility] [address] [id number] [address] [place] [address], [place] [address] Sep, [facility] [address] [id number] [address] [place] [address], [place] [address] Sep, [facility] [address] [id number] [address] [place] [address], [place] [address] Sep, [facility] [address] [id number] [address] [place] [address], [place] [address] Sep, [facility] [address] [id number] [address] [place] [address], [place] [address] Sep, [facility] [address] [id number] [address] [place] [address], [place] [address] Sep, [facility] [address] [id number] [address] [place] [address], [place] [address] Aug, [facility] [address] [id number] [address] [place] [address], [place] [address] Aug, [facility] [address] [id number] [address] [place] [address], [place] [address] Aug, [facility] [address] [id number] [address] [place] [address], [place] [address] Aug, [facility] [address] [id number] [address] [place] [address], [place] [address] Aug, [facility] [address] [id number] [address] [place] [address], [place] [address] Aug, [facility] [address] [id number] [address] [place] [address], [place] [address] Aug, [facility] [address] [id number] [address] [place] [address], [place] [address] Aug, [facility] [address] [id number] [address] [place] [address], [place] [address] Aug, [facility] [address] [id number] [address] [place] [address], [place] [address] Aug, [facility] [address] [id number] [address] [place] [address], [place] [address] Aug, [facility] [address] [id number] [address] [place] [address], [place] [address] Aug, [facility] [address] [id number] [address] [place] [address], [place] [address] Aug, [facility] [address] [id number] [address] [place] [address], [place] [address] Aug, [facility] [address] [id number] [address] [place] [address], [place] [address] 07 Jul, 2013 [facility] [address] [id number] [address] [place] [address], [place] [address] 07 Jul, 2013 [facility] [address] [id number] [address] [place] [address], [place] [address] 06 Jul, 2014 [facility] [address] [id number] [address] [place] [address], [place] [address] 06 Jul, 2013 [facility] [address] [id number] [address] [place] [address], [place] [address] 24 Jun, 2013 [facility] [address] [id number] [address] [place] [address], [place] [address] 24 Jun, 2013 [facility] [address] [id number] [address] [place] [address], [place] [address] 23 Jun, 2013 [facility] [address] [id number] [address] [place] [address], [place] [address] 23 Jun, 2013 [facility] [address] [id number] [address] [place] [address], [place] [address] 19 Jun, 2013 [facility] [address] [id number] [address] [place] [address], [place] [address] 19 Jun, 2013 [facility] [address] [id number] [address] [place] [address], [place] [address] 11 Jun, 2013 [facility] [address] [id number] [address] [place] [address], [place] [address] 11 Jun, 2013 [facility] [address] [id number] [address] [place] [address], [place] [address] 11 Jun, 2013 [facility] [address] [id number] [address] [place] [address], [place] [address] 11 Jun, 2013 [facility] [address] [id number] [address] [place] [address], [place] [address] 10 Jun, 2013 [facility] [address] [id number] [address] [place] [address], [place] [address] 10 Jun, 2014 [facility] [address] [id number] [facility] [place] [address] Jun, [facility] [address] [id number] [facility] [place] [address] Jun, [facility] [address] [id number] [facility] [place] [address] May, [facility] [address] [id number] [address] [place] [address], [place] [address] May, [facility] [address] [id number] [address] [place] [address], [place] [address] May, [facility] [address] [id number] [address] [place] [address], [place] [address] May, [facility] [address] [id number] [address] [place] [address], [place] [address] May, [facility] [address] [id number] [address] [place] [address], [place] [address] May, [facility] [address] [id number] [address] [place] [address], [place] [address] Apr, [facility] [address] [id number] [address] [place] [address], [place] [address] Apr, [facility] [address] [id number] [address] [place] [address], [place] [address] Apr, [facility] [address] [id number] [address] [place] [address], [place] [address] Apr, [facility] [address] [id number] [address] [place] [address], [place] [address] Apr, [facility] [address] [id number] [address] [place] [address], [place] [address] Apr, [facility] [address] [id number] [address] [place] [address], [place] [address] Apr, [facility] [address] [id number] [address] [place] [address], [place] [address] Apr, [facility] [address] [id number] [address] [place] [address], [place] [address] Apr, [facility] [address] [id number] [address] [place] [address], [place] [address] Apr, [facility] [address] [id number] [address] [place] [address], [place] [address] Apr, [facility] [address] [id number] [address] [place] [address], [place] [address] Mar, [facility] [address] [id number] [address] [place] [address], [place] [address] Mar, [facility] [address] [id number] [address] [place] [address], [place] [address] Mar, [facility] [address] [id number] [address] [place] [address], [place] [address] Mar, [facility] [address] [id number] [address] [place] [address], [place] [address] February, [facility] [address] [id number] [address] [place] [address], [place] [address] February, [facility] [address] [id number] [address] [place] [address], [place] [address] Jan, [facility] [address] [id number] [address] [place] [address], [place] [address] Jan, [facility] [address] [place] [id number] Jan, [facility] [address] [id number] [address] [place] [address], [place] [address] Jan, [facility] [address] [id number] [address] [place] [address], [place] [address] Jan, [facility] [address] [id number] [address] [place] [address], [place] [address] Jan, [facility] [address] [id number] [address] [place] [address], [place] [address] Jan, [facility] [address] [id number] [facility] [place] [address] 22 Jan, 2014 [facility] [address] [id number] [address] [place] [address], [place] [address] Jan, [facility] [address] [id number] [address] [place] [address], [place] [address] Jan, [facility] [address] [id number] [address] [place] [address], [place] [address] 10 Jan, 2014 [facility] [address] [id number] [address] [place] [address], [place] [address] Jan, [facility] [address] [id number] [address] [place] [address], [place] [address] Jan, [facility] [address] [id number] [address] [place] [address], [place] [address] Jan, [facility] [address] [id number] [address] [place] [address], [place] [address] Jan, [facility] [address] [id number] [address] [place] [address], [place] [address] Jan, [facility] [address] [id number] [address] [place] [address], [place] [address] Jan, [facility] [address] [id number] [address] [place] [address], [place] [address] 18 Dec, 2013 [facility] [address] [id number] [address] [place] [address], [place] [address] 18 Dec, 2013 [facility] [address] [id number] [address] [place] [address], [place] [address] 12 Dec, 2013 [facility] [address] [id number] [address] [place] [address], [place] [address] 12 Dec, 2013 [facility] [address] [id number] [address] [place] [address], [place] [address] 05 Dec, 2013 [facility] [address] [id number] [address] [place] [address], [place] [address] Dec, [facility] [address] [id number] [address] [place] [address], [place] [address] Dec, [facility] [address] [id number] [address] [place] [address], [place] [address] Nov, [facility] [address] [id number] [address] [place] [address], [place] [address] Nov, [facility] [address] [id number] [address] [place] [address], [place] [address] Nov, [facility] [address] [id number] [address] [place] [address], [place] [address] Nov, [facility] [address] [id number] [address] [place] [address], [place] [address] Nov, [facility] [address] [id number] [address] [place] [address], [place] [address] Nov, [facility] [address] [id number] [address] [place] [address], [place] [address] Nov, [facility] [address] [id number] [address] [place] [address], [place] [address] Oct, [facility] [address] [id number] [address] [place] [address], [place] [address] Oct, [facility] [address] [id number] [address] [place] [address], [place] [address] Sep, [facility] [address] [id number] [address] [place] [address], [place] [address] Sep, [facility] [address] [id number] [address] [place] [address], [place] [address] Sep, [facility] [address] [id number] [address] [place] [address], [place] [address] Sep, [facility] [address] [id number] [address] [place] [address] Sep, [facility] [address] [id number] [address] [place] [address] Sep, [facility] [address] [id number] [address] [place] [address] Sep, [facility] [address] [id number] [address] [place] [address] Sep, [facility] [address] [id number] [address] [place] [address] Sep, [facility] [address] [id number] [address] [place] [address] Sep, [facility] [address] [id number] [address] [place] [address] Aug, [facility] [address] [id number] [address] [place] [address] Aug, [facility] [address] [id number] [address] [place] [address] Aug, [facility] [address] [id number] [address] [place] [address] Aug, [facility] [address] [id number] [address] [place] [id number] Aug, [facility] [address] [id number] [address] [place] [id number] Jul, [facility] [address] [id number] [address] [place] [id number] Jul, [facility] [address] [id number] [address] [place] [address] Jul, [facility] [address] [id number] [address] [place] [address] Jul, IMMUNIZATIONS No Known Immunizations SOCIAL HISTORY Never Assessed REASON FOR VISIT HTN. Would like to discuss holter monitor results. Pt is having joint pain and b ack pain that is getting worse that she would like to discuss. Pt is taking Alev e, even though she has liver issues.-awoods PLAN OF CARE Activity Details Follow Up 6 Weeks Reason:DMII VITAL SIGNS Height 62 in 2018-12-25 Weight 292.4 lbs 2018-12-25 Temperature 99.1 degrees Fahrenheit 2018-12-25 Heart Rate 64 bpm 2018-12-25 Respiratory Rate 22 2018-12-25 BMI 53.47 kg/m2 2018-12-25 Blood pressure systolic 140 mmHg 2018-12-25 Blood pressure diastolic 68 mmHg 2018-12-25 MEDICATIONS Medication Instructions Dosage Frequency Start Date End Date Duration S tatus Hydrochlorothiazide 25 MG Orally Once a day 1 tablet in the morning 24h Active Aleve Active Vitamin D 1000 UNIT Orally Once a day 4 tablet 24h Active Cyanocobalamin 1000 MCG/ML Injection one time monthly inject 1 ml 84 Active Metoprolol Succinate 25 mg Orally Once a day 1 capsule 24h 18 r, 2018 90 days Active Zetia 10 MG TAKE ONE TABLET BY MOUTH ONCE DAILY 30 Active Lisinopril 40 MG TAKE ONE TABLET BY MOUTH ONCE DAILY Active Melatonin 5 MG Orally Once a day 1 tablet at bedtime as needed with f ood 24h Active Vitamin C 500 MG Active Zoloft 100 mg Orally Once a day 2 tablets 24h Active Ferrous Sulfate 325 (65 Fe) MG Orally Once a day 1 tablet 24h Dec Active Levothyroxine Sodium 100 MCG TAKE ONE TA BLET BY MOUTH ONCE DAILY IN THE MORNING ON AN EMPTY STOMACH (MUST HAVE LABS DRAWN FOR REFILL) 90 Active VanishPoint Syringe 23G X 1 as directed Dec, Active RESULTS Name Result Date Reference Range MRI : Lumbar w/o contrast 2019-01-08 MRI : Thoracic w/o Contrast 2019-01-08 PROCEDURES Procedure Date Ordered Result Body Site [facility] VISIT ESTABLISHED PATIENT December 25, 2018 INSTRUCTIONS MEDICATIONS ADMINISTERED No Known Medications MEDICAL [...]
--- OUTSIDE RECORDS SUMMARY | 2020-03-16 11:52 | XMS REPORT ---
Author Author Swathi DORAN Organization [facility] Address [address] [place] [address] Care Team Providers Care Nanoelectronics Engineer Name Role Phone BRENTON DORAN Unavailable PROBLEMS Type Condition ICD9-CM Code [id number] Code Onset Dates Condition S tatus SNOMED Code Problem Sensorineural hearing loss of right ear H90.41 Active 55524891 Problem Obstructive sleep apnea on CPAP G47.33 Active 43430229 Problem Periodic limb movement sleep disorder G47.61 Active 084047766 Problem Iron deficiency anemia due to chronic blood loss D 50.0 Active 77021634 Problem MACHUCA (nonalcoholic steatohepatitis) K75.81 Active 541889784 Problem Vitamin B12 deficiency E53.8 Active 187381668 Problem Chronic diarrhea K52.9 Active 236 284512 Problem Vitamin D deficiency E55.9 Active 96309194 Problem BMI 50.0-59.9, adult Z68.43 Active 763385868 Problem Fatty liver K76.0 Active 04509151 7 Problem Anxiety F41.9 Active 19665218 Problem Major depressive disorder, recurrent episode, moderate F33.1 Active 278209375 Problem Chronic tension-type headache, intractable G44.221 Active 410692636 Problem Right upper quadrant pain R10.11 Acti ve 56412640 Problem Frequent falls R29.6 Active 02181 2002 Problem Crohn's disease of both small and large intestin e with complication K50.819 Active 56160820 Problem Type 2 diabetes mellitus with other specified complication E11.69 Active 023934238383 Problem Hyperlipidemia, unspecified E78.5 Ac tive 45818971 Problem Mixed stress and urge urinary incontinence N39.46 Active 919171722 Problem Sinusitis chronic, frontal J32.1 Act katlyn 55574485 Problem Seasonal allergies J30.2 Active 4 55911838 Problem Other chronic pain G89.29 Active 8 0999883 Problem Hyperlipidemia E78.5 Active 67257 004 Problem Bilateral primary osteoarthritis of knee M17.0 Active 258916895 Problem Essential hypertension I10 Active 21290435 Problem Acquired hypothyroidism E03.9 Active 316230648 Problem History of hysterectomy for benign disease Z90.710 Active 200450801 Problem Morbid (severe) obesity due to excess calories E66 .01 Active 466806442 Problem Other cirrhosis of liver K74.69 Activ e 68191940 Problem Portal hypertension K76.6 Active 77849236 ALLERGIES No Information ENCOUNTERS Encounter Location Date Diagnosis [facility] IN [facility] [address] [place] [facility] [place] [address] Jun, Pneumonia of right middle lobe due to in fectious organism J18.1 and Cough R05 [facility] [address] [facility] [place] [address] Jun, Acute nasopharyngitis J00 [facility] [address] [facility] [id number] [address] [place] [address] May, Iron deficiency anemia due t o [...] depressive disorder, recurrent episode, moderate F33.1 [facility] [address] [facility] [id number] [address] [place] [address] May, Hyperlipidemia, unspecified E78.5 ; Other cirrhosis of liver K74.69 and Iron deficiency anemia due to chronic blood loss D50.0 [facility] [address] [facility] [id number] [address] [place] [address] February, [facility] IN [facility] [address] [facility] [place] [address] February, Acute recurrent pansinusitis J01.41 [facility] IN [facility] [address] [facility] [place] [address] February, Acute maxillary sinusitis, recurrence no t specified J01.00 [facility] [address] [place] [id number] [address] [place] [address] Jan, Bilateral primary osteoarthr itis of knee M17.0 ; Morbid obesity E66.01 ; Viral syndrome B34.9 and Atrial dilatation, left I51.7 [place] [address] [address] Jan, [place] [address] [address] Dec, Trigeminy R00.8 [place] [id number] [place] [address] Dec, Essential hypertension I10 ; Morbid obesity E66.01 ; Low back pain M54.5 ; Other chronic pain G89.29 and Pain in right knee M25.561 [place] [address] [address] Nov, [place] [address] [address] Oct, Palpitations R00.[address] [address] Oct, Encounter for Medicare annua l wellness [...] small and large intestine with complication K50.819 [place] [address] [place] [id number] [address] [place] [address] Oct, [place] [id number] [address] [place] [address] Oct, Crohn's disease of both smal l and large intestine with complication K50.819 [facility] [address] [place] [address] Jul, Sinusitis chronic, frontal J 32.1 ; Acute mucoid otitis media of both ears H65.113 ; Seasonal allergies J30.2 and BMI 50.0-59.9, adult Z68.43 [facility] [address] [address] 02 Jul, 2018 Essential hypertension I10 ; Type 2 diabetes mellitus with other specified complication E11.69 ; BMI 50.0-59.9, adult Z68.43 ; Mixed stress and urge urinary incontinence N39.46 and Mid back pain on right side M54.9 [place] [address] [address] Jun, Iron deficiency anemia due t o chronic blood loss D50.0 ; Hyperlipidemia E78.5 ; Type 2 diabetes mellitus with other specified complication E11.69 ; Vitamin B12 deficiency E53.8 and Vitamin D deficiency E55.9 [facility] [address] [address] 14 Jun, 2018 Cough R05 and BMI 50.0-59.9, adult Z68.43 [facility] [address] [place] [id number] [address] [place] [address] Jun, [place] [address] [place] [id number] [address] [place] [address] May, Iron deficiency anemia due t o chronic blood loss D50.0 ; Chronic diarrhea K52.9 ; Essential hypertension I10 ; Type 2 diabetes mellitus with other specified complication E11.69 ; Vitamin D deficiency E55.9 ; Colon stricture K56.699 ; Vitamin B12 deficiency E53.8 ; Hyperlipidemia E78.5 and BMI 50.0-59.9, adult Z68.43 [facility] [address] [place] [id number] [address] [place] [address] May, [place] [address] [place] [id number] [place] [address] Apr, Nonhealing wound of heel S91 .309A and Body mass index (BMI) of 50- 59.9 in adult Z68.43 [place] [address] [place] [address] Mar, [place] [address] [place] [id number] [place] [address] Mar, BMI 50.0-59.9, adult Z68.43 ; Flank pain R10.9 and Weight loss counseling, encounter for Z71.3 [place] [address] [address] February, [place] [address] [address] Jan, [place] [address] [address] Jan, [facility] [address] [place] [id number] [place] [address] Jan, Diarrhea due to staphylococc us A04.8 and Diarrhea, unspecified type R19.7 [place] [id number] [address] [place] [address] Jan, Acquired hypothyroidism E03. 9 ; Type 2 diabetes mellitus with other specified complication E11.69 ; Hyperlipidemia E78.5 ; Essential hypertension I10 ; Major depressive disorder, recurrent episode, moderate F33.1 and Vitamin D deficiency E55.9 [place] [address] [place] [id number] [address] [place] [address] Jan, Type 2 diabetes mellitus wit h other specified complication E11.69 ; Hyperlipidemia E78.5 ; Essential hypertension I10 ; Acquired hypothyroidism E03.9 ; Major depressive disorder, recurrent episode, moderate F33.1 ; Vitamin D deficiency E55.9 ; Sinus congestion R09.81 and BMI 50.0-59.9, adult Z68.43 [place] [address] [place] [id number] [place] [address] Dec, [facility] [address] [place] [id number] [address] [place] [address] Sep, Encounter for immunization Z 23 [facility] [address] [facility] [id number] [address] [place] [address] Sep, [facility] [address] [place] [id number] [address] [place] [address] Sep, Vitamin B12 deficiency E53.8 [place] [address] [place] [id number] [address] [place] [address] Aug, [place] [address] [address] Aug, BMI 60.0-69.9, adult Z68.44 and Acute non-recurrent maxillary sinusitis J01.00 [place] [address] [place] [id number] [place] [address] Aug, [place] [address] [place] [id number] [address] [place] [address] Aug, Medicare annual wellness vis it, initial Z00.00 ; Screening for breast cancer Z12.31 ; BMI 40.0-44.9, adult Z68.41 and Acquired hypothyroidism E03.9 [place] [address] [place] [id number] [address] [place] [address] Jul, Actinic keratosis L57.0 [place] [address] [place] [id number] [address] [place] [address] Jul, Actinic keratosis L57.0 [place] [address] [place] [id number] [address] [place] [address] Jul, Type 2 diabetes mellitus wit h other specified complication E11.69 ; Actinic keratosis L57.0 and Hypothyroidism, unspecified E03.9 [place] [address] [place] [id number] [address] [place] [address] Jul, [place] [address] [place] [id number] [place] [address] Jul, [facility] [address] [address] Jul, Vitamin B12 deficiency E53.8 [facility] [address] [place] [id number] [address] [place] [address] Jun, Acquired hypothyroidism E03. 9 and Chronic tension-type headache, intractable G44.221 [facility] [address] [place] [id number] [place] [address] Jun, Back muscle spasm M62.830 an d BMI 50.0-59.9, adult Z68.43 [place] [address] [address] Jun, Vitamin B12 deficiency E53.8 [place] [address] [address] Jun, Crohn's disease of both smal l and large intestine with complication K50.819 [facility] [address] [address] Jun, Crohn's disease of both smal l and large intestine with complication K50.819 [facility] [address] [address] May, Hyperlipidemia E78.5 ; Anxie ty F41.9 and Essential hypertension I10 [facility] [address] [address] May, [facility] [address] [address] May, Encounter for immunization Z 23 and Vitamin B12 deficiency E53.8 [facility] [address] [place] [id number] [address] [place] [address] May, [facility] [address] [address] Apr, [place] [address] [id number] [address] [place] [address] Apr, [place] [address] [id number] [address] [place] [address] Apr, Crohn's disease of both smal l and large intestine with complication K50.819 [place] [address] [facility] [id number] [address] [place] [address] Apr, Vitamin B12 deficiency E53.8 [place] [address] [facility] [id number] [address] [place] [address] Apr, Crohn's disease of both smal l and large intestine with complication K50.819 and Acute pain of right shoulder M25.511 [place] [address] [facility] [id number] [address] [place] [address] Mar, Type 2 diabetes mellitus wit hout complication E11.9 ; Frequent falls R29.6 and Other chest pain R07.89 [place] [address] [facility] [id number] [address] [place] [address] Mar, [place] [address] [facility] [id number] [address] [place] [address] Mar, [place] [address] [facility] [id number] [address] [place] [address] Mar, Type 2 diabetes mellitus wit hout complication E11.9 and Blurry vision, bilateral H53.8 [place] [address] [facility] [id number] [address] [place] [address] Mar, Vitamin B12 deficiency E53.8 [place] [address] [facility] [id number] [address] [place] [address] Mar, Crohn's disease of both smal l and large intestine with complication K50.819 [place] [address] [facility] [id number] [address] [place] [address] February, Vitamin B12 deficiency E53.8 [place] [address] [facility] [id number] [address] [place] [address] Jan, Crohn's disease of both smal l and large intestine with complication K50.819 [facility] [address] [facility] [id number] [address] [place] [address] Jan, Crohn's disease of both smal l and large intestine with complication K50.819 [facility] [address] [facility] [id number] [address] [place] [address] Jan, Dark brown-colored urine R82 .99 and Acute suppurative otitis media of right ear without spontaneous rupture of tympanic membrane, recurrence not specified H66.001 [facility] [address] [place] [id number] [address] [place] [address] Jan, Encounter for immunization Z 23 [facility] [address] [place] [id number] [address] [place] [address] Dec, Crohn's disease of both smal l and large intestine with complication K50.819 and Eustachian tube dysfunction, right H69.81 [facility] [address] [place] [address] Dec, [place] [address] [place] [id number] [address] [place] [address] Dec, Contusion of right knee, ini tial encounter S80.01XA [place] [address] [place] [id number] [address] [place] [address] Dec, [facility] [address] [place] [id number] [address] [place] [address] Dec, Acute pain of right knee M25 .561 [place] [address] [place] [id number] [address] [place] [address] Dec, Iron deficiency anemia due t o chronic blood loss D50.0 [place] [address] [place] [id number] [address] [place] [address] Dec, Hyperlipidemia E78.5 ; Type 2 diabetes mellitus without complication E11.9 ; Vitamin B12 deficiency E53.8 ; Essential hypertension I10 ; Obstructive sleep apnea on CPAP G47.33 and Periodic limb movement sleep disorder G47.61 [place] [address] [facility] [id number] [address] [place] [address] 22 Nov, 2016 Type 2 diabetes mellitus wit hout complication E11.9 ; Vitamin B12 deficiency E53.8 ; Hyperlipidemia E78.5 ; Essential hypertension I10 ; Obstructive sleep apnea on CPAP G47.33 ; Periodic limb movement sleep disorder G47.61 ; Anxiety F41.9 ; Acquired hypothyroidism E03.9 and Chronic tension-type headache, intractable G44.221 [place] [address] [facility] [id number] [address] [place] [address] 10 Nov, 2016 Crohn's disease of both smal l and large intestine with complication K50.819 [place] [address] [facility] [id number] [address] [place] [address] Nov, Vitamin B12 deficiency E53.8 [place] [address] [facility] [id number] [address] [place] [address] Oct, [place] [address] [facility] [id number] [address] [place] [address] Oct, Vitamin B12 deficiency E53.8 [place] [address] [facility] [id number] [address] [place] [address] Sep, [place] [address] [facility] [id number] [address] [place] [address] Sep, Vitamin B12 deficiency E53.8 [place] [address] [facility] [id number] [address] [place] [address] Aug, [place] [address] [facility] [id number] [address] [place] [address] 14 Aug, 2016 Vitamin B12 deficiency E53.8 [facility] [address] [facility] [id number] [address] [place] [address] Aug, [place] [address] [facility] [id number] [address] [place] [address] Jul, Elevated ALT measurement R74 .0 [place] [address] [facility] [id number] [address] [place] [address] Jul, Hematuria R31.9 ; Acute righ t-sided thoracic back pain M54.6 ; Major depressive disorder, recurrent episode, moderate F33.1 and Elevated ALT measurement R74.0 [place] [address] [facility] [id number] [address] [place] [address] Jul, [place] [address] [facility] [id number] [address] [place] [address] Jul, Elevated ALT measurement R74 .0 [place] [address] [place] [id number] [place] [address] Jul, Iron deficiency anemia due t o chronic blood loss D50.0 [place] [address] [facility] [id number] [address] [place] [address] Jul, Type 2 diabetes mellitus wit hout complication E11.9 ; Acquired hypothyroidism E03.9 ; Iron deficiency anemia due to chronic blood loss D50.0 ; Hyperlipidemia E78.5 and Essential hypertension I10 [place] [address] [place] [id number] [address] [place] [address] Jun, [place] [address] [facility] [id number] [address] [place] [address] Jun, Vitamin B12 deficiency E53.8 [place] [address] [facility] [id number] [address] [place] [id number] 16 Jun, 2016 Type 2 diabetes mellitus wit hout complication E11.9 ; Acquired hypothyroidism E03.9 ; Iron deficiency anemia due to chronic blood loss D50.0 ; Hyperlipidemia E78.5 ; Essential hypertension I10 ; Chronic tension-type headache, intractable G44.221 ; Pulsatile tinnitus, bilateral H93.13 ; Obstructive sleep apnea on CPAP G47.33 and Major depressive disorder, recurrent episode, moderate F33.1 [place] [address] [facility] [id number] [address] [place] [address] May, Vitamin B12 deficiency E53.8 [facility] [address] [facility] [id number] [address] [place] [address] 08 May, 2016 [facility] [address] [facility] [id number] [address] [place] [address] Apr, Vitamin B12 deficiency E53.8 [facility] [address] [facility] [id number] [address] [place] [address] Apr, [facility] [address] [facility] [id number] [address] [place] [address] Mar, Chronic tension-type headach e, intractable G44.221 and Major depressive disorder, recurrent episode, moderate F33.1 [facility] [address] [facility] [id number] [address] [place] [address] Mar, Vitamin B12 deficiency E53.8 [facility] [address] [facility] [id number] [address] [place] [address] February, [facility] [address] [facility] [id number] [address] [place] [address] February, Vitamin B12 deficiency E53.8 [facility] [address] [facility] [id number] [address] [place] [address] February, [facility] [address] [facility] [id number] [address] [place] [address] Jan, Dysuria R30.0 [facility] [address] [facility] [id number] [address] [place] [address] 22 Jan, 2016 Type 2 diabetes mellitus wit hout complication E11.9 and Essential hypertension I10 [facility] [address] [facility] [id number] [address] [place] [address] 15 Jan, 2016 Chronic diarrhea K52.9 [facility] [address] [facility] [id number] [address] [place] [address] Jan, [facility] [address] [facility] [id number] [address] [place] [id number] 12 Apr, 2016 Chronic diarrhea K52.9 [facility] [address] [facility] [id number] [address] [place] [address] Jan, [facility] [address] [address] 12 Jan, 2016 Dysuria R30.0 [facility] [address] [address] Jan, Vitamin B12 deficiency E53.8 [facility] [address] [address] 07 Jan, 2016 Dysuria R30.0 and Iron defic iency anemia due to chronic blood loss D50.0 [place] [address] [place] [id number] [place] [address] 05 Jan, 2016 Dysuria R30.0 [facility] [address] [address] 04 Jan, 2016 [facility] [address] [place] [id number] [address] [place] [address] 15 Dec, 2015 [facility] [address] [address] 11 Dec, 2015 Iron deficiency anemia due t o chronic blood loss D50.0 [facility] [address] [place] [id number] [place] [address] 10 Dec, 2015 Dysuria R30.0 ; Fatigue R53. 83 ; Hyperlipidemia E78.5 and Diarrhea R19.7 [facility] [address] [place] [id number] [address] [place] [id number] 09 Dec, 2015 [facility] [address] [address] 02 Dec, 2015 [facility] [address] [place] [id number] [place] [address] 10 Nov, 2015 Vitamin B12 deficiency E53.8 [facility] [address] [address] Oct, Vitamin B12 deficiency E53.8 [facility] [address] [facility] [id number] [address] [place] [id number] Oct, [facility] [id number] [place] [id number] 09 Oct, 2015 Headache R51 [facility] [id number] [place] [id number] Oct, Essential hypertension I10 ; Type 2 diabetes mellitus without complication E11.9 ; Vitamin B12 deficiency E53.8 ; Acquired hypothyroidism E03.9 ; Iron deficiency anemia due to chronic blood loss D50.0 and Hyperlipidemia E78.5 [facility] [address] [id number] Sep, Essential hypertension I10 ; Vitamin B12 deficiency E53.8 ; Iron deficiency anemia due to chronic blood loss D50.0 ; Type 2 diabetes mellitus without complication E11.9 ; Hyperlipidemia E78.5 and Acquired hypothyroidism E03.9 [facility] [id number] [place] [phone] Sep, [facility] [address] [id number] Sep, [facility] [id number] [place] [id number] Jul, [facility] [id number] [place] [id number] Jun, [facility] [facility] [address] [id number] [address] [place] [address] Jun, [facility] [address] [address] 15 Jun, 2015 Hyperlipidemia 272.4 ; Iron deficiency anemia 280.9 ; Hypothyroidism 244.9 ; Diabetes mellitus without mention of complication, type II or unspecified type, not stated as uncontrolled 250.00 and Hypertension 401.9 [facility] [address] [address] Jun, [facility] [address] [facility] [id number] [address] [place] [address] Jun, [facility] [address] [facility] [id number] [address] [place] [address] May, Hyperlipidemia 272.4 [facility] [address] [facility] [id number] [address] [place] [address] May, [facility] [address] [facility] [id number] [address] [place] [address] May, [facility] [address] [facility] [id number] [address] [place] [address] Apr, Diabetes mellitus without me ntion of complication, type II or unspecified type, not stated as uncontrolled 250.00 ; Hypothyroidism 244.9 ; Hyperlipidemia 272.4 ; Pain in joint, lower leg 719.46 and RUQ pain 789.01 [facility] [address] [facility] [id number] [address] [place] [address] Mar, Sinusitis 473.9 [facility] [address] [facility] [id number] [address] [place] [address] Mar, [facility] [address] [id number] [address] [place] [address] Mar, [facility] [address] [facility] [id number] [address] [place] [address] Mar, Hematochezia 578.1 [facility] [address] [facility] [id number] [address] [place] [address] February, Sinusitis 473.9 [facility] [address] [facility] [id number] [address] [place] [address] February, [facility] [address] [facility] [id number] [address] [place] [address] Jan, [facility] [address] [facility] [id number] [address] [place] [address] Jan, [facility] [address] [id number] [address] [place] [address], [place] [address] 24 Dec, 2014 [facility] [address] [id number] [address] [place] [address], [place] [address] Dec, [facility] [address] [id number] [address] [place] [address], [place] [address] Dec, [facility] [address] [id number] [address] [place] [address], [place] [address] Dec, [facility] [address] [id number] [address] [place] [address], [place] [address] Dec, [facility] [address] [id number] [address] [place] [address], [place] [address] Dec, [facility] [address] [id number] [address] [place] [address], [place] [address] Dec, [facility] [address] [id number] [address] [place] [address], [place] [address] Dec, [facility] [address] [id number] [address] [place] [address], [place] [address] Dec, [facility] [address] [id number] [address] [place] [address], [place] [address] Dec, [facility] [address] [id number] [address] [place] [address], [place] [address] Dec, [facility] [address] [id number] [address] [place] [address], [place] [address] Nov, [facility] [address] [id number] [address] [place] [address], [place] [address] Nov, [facility] [address] [id number] [address] [place] [address], [place] [address] Nov, [facility] [address] [id number] [address] [place] [address], [place] [address] Nov, [facility] [address] [id number] [address] [place] [address], [place] [address] Oct, [facility] [address] [id number] [address] [place] [address], [place] [address] Oct, [facility] [address] [id number] [address] [place] [address], [place] [address] Oct, [facility] [address] [id number] [address] [place] [address], [place] [address] Oct, [facility] [address] [id number] [address] [place] [address], [place] [address] Oct, [facility] [address] [id number] [address] [place] [address], [place] [address] Oct, [facility] [address] [id number] [address] [place] [address], [place] [address] Sep, [facility] [address] [id number] [address] [place] [address], [place] [address] Sep, [facility] [address] [id number] [address] [place] [address], [place] [address] Sep, [facility] [address] [id number] [address] [place] [address], [place] [address] Sep, [facility] [address] [id number] [address] [place] [address], [place] [address] Sep, [facility] [address] [id number] [address] [place] [address], [place] [address] Sep, [facility] [address] [id number] [address] [place] [address], [place] [address] Sep, [facility] [address] [id number] [address] [place] [address], [place] [address] Aug, [facility] [address] [id number] [address] [place] [address], [place] [address] Aug, [facility] [address] [id number] [address] [place] [address], [place] [address] Aug, [facility] [address] [id number] [address] [place] [address], [place] [address] Aug, [facility] [address] [id number] [address] [place] [address], [place] [address] Aug, [facility] [address] [id number] [address] [place] [address], [place] [address] Aug, [facility] [address] [id number] [address] [place] [address], [place] [address] Aug, [facility] [address] [id number] [address] [place] [address], [place] [address] Aug, [facility] [address] [id number] [address] [place] [address], [place] [address] Aug, [facility] [address] [id number] [address] [place] [address], [place] [address] Aug, [facility] [address] [id number] [address] [place] [address], [place] [address] Aug, [facility] [address] [id number] [address] [place] [address], [place] [address] Aug, [facility] [address] [id number] [address] [place] [address], [place] [address] Aug, [facility] [address] [id number] [address] [place] [address], [place] [address] Aug, [facility] [address] [id number] [address] [place] [address], [place] [address] Jul, [facility] [address] [id number] [address] [place] [address], [place] [address] Jul, [facility] [address] [id number] [address] [place] [address], [place] [address] Jul, [facility] [address] [id number] [address] [place] [address], [place] [address] Jul, [facility] [address] [id number] [address] [place] [address], [place] [address] Jun, [facility] [address] [id number] [facility] [place] [address] 24 Jun, 2013 [facility] [address] [id number] [address] [place] [address], [place] [address] 23 Jun, 2013 [facility] [address] [id number] [address] [place] [address], [place] [address] 23 Jun, 2013 [facility] [address] [id number] [address] [place] [address], [place] [address] 19 Jun, 2013 [facility] [address] [id number] [address] [place] [address], [place] [address] 19 Jun, 2013 [facility] [address] [id number] [address] [place] [address], [place] [address] 11 Jun, 2013 [facility] [address] [id number] [address] [place] [address], [place] [address] 11 Jun, 2013 [facility] [address] [id number] [address] [place] [address], [place] [address] 11 Jun, 2013 [facility] [address] [id number] [address] [place] [address], [place] [address] 11 Jun, 2013 [facility] [address] [id number] [address] [place] [address], [place] [address] 10 Jun, 2013 [facility] [address] [id number] [address] [place] [address], [place] [address] 10 Jun, 2013 [facility] [address] [id number] [address] [place] [address], [place] [address] 09 Jun, 2013 [facility] [address] [id number] [address] [place] [address], [place] [address] 09 Jun, 2013 [facility] [address] [id number] [address] [place] [address], [place] [address] 14 May, 2014 [facility] [address] [id number] [address] [place] [address], [place] [address] 14 May, 2014 [facility] [address] [id number] [address] [place] [address], [place] [address] May, [facility] [address] [id number] [facility] [place] [address] May, [facility] [address] [id number] [address] [place] [address], [place] [address] May, [facility] [address] [id number] [address] [place] [address], [place] [address] May, [facility] [address] [id number] [address] [place] [address], [place] [address] Apr, [facility] [address] [id number] [address] [place] [address], [place] [address] Apr, [facility] [address] [id number] [address] [place] [address], [place] [address] Apr, [facility] [address] [id number] [address] [place] [address], [place] [address] Apr, [facility] [address] [id number] [address] [place] [address], [place] [address] Apr, [facility] [address] [id number] [address] [place] [address], [place] [address] Apr, [facility] [address] [id number] [address] [place] [address], [place] [address] Apr, [facility] [address] [id number] [address] [place] [address], [place] [address] Apr, [facility] [address] [id number] [address] [place] [address], [place] [address] Apr, [facility] [address] [id number] [address] [place] [address], [place] [address] Apr, [facility] [address] [id number] [address] [place] [address], [place] [address] Apr, [facility] [address] [id number] [address] [place] [address], [place] [address] Mar, [facility] [address] [id number] [address] [place] [address], [place] [address] Mar, [facility] [address] [id number] [address] [place] [address], [place] [address] Mar, [facility] [address] [id number] [address] [place] [address], [place] [address] Mar, [facility] [address] [id number] [address] [place] [address], [place] [address] February, [facility] [address] [id number] [address] [place] [address], [place] [address] February, [facility] [address] [id number] [address] [place] [address], [place] [address] Jan, [facility] [address] [id number] [address] [place] [address], [place] [address] Jan, [facility] [address] [place] [place] [id number] Jan, [facility] [address] [id number] [address] [place] [address], [place] [address] Jan, [facility] [address] [id number] [address] [place] [address], [place] [address] Jan, [facility] [address] [id number] [address] [place] [address], [place] [address] Jan, [facility] [address] [id number] [address] [place] [address], [place] [address] Jan, [facility] [address] [id number] [address] [place] [address], [place] [address] Jan, [facility] [address] [id number] [address] [place] [address], [place] [address] Jan, [facility] [address] [id number] [address] [place] [address], [place] [address] Jan, [facility] [address] [id number] [address] [place] [address], [place] [address] Jan, [facility] [address] [id number] [address] [place] [address], [place] [address] Jan, [facility] [address] [id number] [address] [place] [address], [place] [address] Jan, [facility] [address] [id number] [address] [place] [address], [place] [address] Jan, [facility] [address] [id number] [address] [place] [address], [place] [address] Jan, [facility] [address] [id number] [address] [place] [address], [place] [address] Jan, [facility] [address] [id number] [address] [place] [address], [place] [address] Jan, [facility] [address] [id number] [address] [place] [address], [place] [address] Dec, [facility] [address] [id number] [address] [place] [address], [place] [address] Dec, [facility] [address] [id number] [address] [place] [address], [place] [address] Dec, [facility] [address] [id number] [address] [place] [address], [place] [address] Dec, [facility] [address] [id number] [address] [place] [address], [place] [address] Dec, [facility] [address] [id number] [address] [place] [address], [place] [address] Dec, [facility] [address] [id number] [address] [place] [address], [place] [address] Dec, [facility] [address] [id number] [address] [place] [address], [place] [address] Nov, [facility] [address] [id number] [address] [place] [address], [place] [address] Nov, [facility] [address] [id number] [address] [place] [address], [place] [address] Nov, [facility] [address] [id number] [address] [place] [address], [place] [address] Nov, [facility] [address] [id number] [address] [place] [address], [place] [address] Nov, [facility] [address] [id number] [address] [place] [address], [place] [address] Nov, [facility] [address] [id number] [address] [place] [address], [place] [address] Nov, [facility] [address] [id number] [address] [place] [address], [place] [address] Oct, [facility] [address] [id number] [address] [place] [address], [place] [address] Oct, [facility] [address] [id number] [address] [place] [address], [place] [address] Sep, [facility] [address] [id number] [address] [place] [address], [place] [address] Sep, [facility] [address] [id number] [address] [place] [address], [place] [address] Sep, [facility] [address] [id number] [address] [place] [address], [place] [address] Sep, [facility] [address] [id number] [address] [place] [address], [place] [address] Sep, [facility] [address] [id number] [address] [place] [address], [place] [address] Sep, [facility] [address] [id number] [address] [place] [address], [place] [address] Sep, [facility] [address] [id number] [address] [place] [address], [place] [address] Sep, [facility] [address] [id number] [address] [place] [address], [place] [address] Sep, [facility] [address] [id number] [address] [place] [address] Sep, [facility] [address] [id number] [address] [place] [address] Aug, [facility] [address] [id number] [address] [place] [address] Aug, [facility] [address] [id number] [address] [place] [address] Aug, [facility] [address] [id number] [address] [place] [address] Aug, [facility] [address] [id number] [address] [place] [address] Aug, [facility] [address] [id number] [address] [place] [address] Jul, [facility] [address] [id number] [address] [place] [address] Jul, [facility] [address] [id number] [address] [place] [address] Jul, [facility] [address] [id number] [address] [place] [address] Jul, IMMUNIZATIONS No Known Immunizations SOCIAL HISTORY Never Assessed REASON FOR VISIT PLAN OF CARE VITAL SIGNS MEDICATIONS No Known Medications RESULTS Name Result Date Reference Range Echo 2D 2019-01-05 PROCEDURES No Known procedures INSTRUCTIONS MEDICATIONS ADMINISTERED [...]
--- OUTSIDE RECORDS SUMMARY | 2020-03-16 11:52 | XMS REPORT ---
Author Author Swathi Benavides Organization [facility] Address [address] [place] [address] Care Team Providers Care Resaw Carriage Operator Name Role Phone WIL Benavides Unavailable PROBLEMS Type Condition ICD9-CM Code AGL34-DO Code Onset Dates Condition S tatus SNOMED Code Problem Sensorineural hearing loss of right ear H90.41 Active 48553517 Problem Obstructive sleep apnea on CPAP G47.33 Active 54710720 Problem Periodic limb movement sleep disorder G47.61 Active 246848998 Problem Iron deficiency anemia due to chronic blood loss D 50.0 Active 18364576 Problem MACHUCA (nonalcoholic steatohepatitis) K75.81 Active 640060439 Problem Vitamin B12 deficiency E53.8 Active 184206183 Problem Chronic diarrhea K52.9 Active 236 889650 Problem Vitamin D deficiency E55.9 Active 42131023 Problem BMI 50.0-59.9, adult Z68.43 Active 095599655 Problem Fatty liver K76.0 Active 96523396 7 Problem Anxiety F41.9 Active 41170077 Problem Major depressive disorder, recurrent episode, moderate F33.1 Active 690413906 Problem Chronic tension-type headache, intractable G44.221 Active 019186574 Problem Right upper quadrant pain R10.11 Acti ve 92736759 Problem Frequent falls R29.6 Active 46332 2002 Problem Crohn's disease of both small and large intestin e with complication K50.819 Active 83763465 Problem Type 2 diabetes mellitus with other specified complication E11.69 Active 655809352678 Problem Hyperlipidemia, unspecified E78.5 Ac tive 81736967 Problem Mixed stress and urge urinary incontinence N39.46 Active 233835013 Problem Sinusitis chronic, frontal J32.1 Act katlyn 00772343 Problem Seasonal allergies J30.2 Active 4 97275596 Problem Other chronic pain G89.29 Active 8 0237204 Problem Hyperlipidemia E78.5 Active 85138 004 Problem Bilateral primary osteoarthritis of knee M17.0 Active 844528624 Problem Essential hypertension I10 Active 52110049 Problem Acquired hypothyroidism E03.9 Active 052420019 Problem History of hysterectomy for benign disease Z90.710 Active 786867872 Problem Morbid (severe) obesity due to excess calories E66 .01 Active 182138316 Problem Other cirrhosis of liver K74.69 Activ e 78225171 Problem Portal hypertension K76.6 Active 24702243 ALLERGIES No Information ENCOUNTERS Encounter Location Date Diagnosis [facility] [address] [facility] [place] [address] Jun, Pneumonia of right middle lobe due to in fectious organism J18.1 and Cough R05 [facility] [address] [place] [place] [address] Jun, Acute nasopharyngitis J00 [facility] [address] [facility] [id number] [address] [place] [address] May, Iron deficiency anemia due t o [...] Major depressive disorder, recurrent episode, moderate F33.1 [facility] [address] [facility] [id number] [address] [place] [address] May, Hyperlipidemia, unspecified E78.5 ; Other cirrhosis of liver K74.69 and Iron deficiency anemia due to chronic blood loss D50.0 [facility] [address] [facility] [id number] [address] [place] [address] February, [facility] [address] [facility] [place] [address] February, Acute recurrent pansinusitis J01.41 [facility] [address] [place] [place] [address] February, Acute maxillary sinusitis, recurrence no t specified J01.00 [place] [address] [place] [id number] [place] [address] Jan, Bilateral primary osteoarthr itis of knee M17.0 ; Morbid obesity E66.01 ; Viral syndrome B34.9 and Atrial dilatation, left I51.7 [place] [address] [place] [id number] [address] [place] [address] Jan, [place] [address] [place] [id number] [place] [address] Dec, Trigeminy R00.8 [place] [address] [place] [id number] [address] [place] [address] Dec, Essential hypertension I10 ; Morbid obesity E66.01 ; Low back pain M54.5 ; Other chronic pain G89.29 and Pain in right knee M25.561 [place] [address] [place] [id number] [address] [place] [address] Nov, [place] [address] [place] [id number] [place] [address] Oct, Palpitations R00.[address] [address] Oct, Encounter for Medicare ann l wellness [...] small and large intestine with complication K50.819 [place] [address] [place] [id number] [address] [place] [address] Oct, [place] [address] [place] [id number] [address] [place] [address] Oct, Crohn's disease of both smal l and large intestine with complication K50.819 [facility] [address] [place] [id number] [place] [address] Jul, Sinusitis chronic, frontal J 32.1 ; Acute mucoid otitis media of both ears H65.113 ; Seasonal allergies J30.2 and BMI 50.0-59.9, adult Z68.43 [place] [address] [address] Jul, Essential hypertension I10 ; Type 2 diabetes mellitus with other specified complication E11.69 ; BMI 50.0-59.9, adult Z68.43 ; Mixed stress and urge urinary incontinence N39.46 and Mid back pain on right side M54.9 [place] [address] [place] [id number] [place] [address] Jun, Iron deficiency anemia due t o chronic blood loss D50.0 ; Hyperlipidemia E78.5 ; Type 2 diabetes mellitus with other specified complication E11.69 ; Vitamin B12 deficiency E53.8 and Vitamin D deficiency E55.9 [facility] IN [facility] [address] [place] [id number] [address] [place] [address] 14 Jun, 2018 Cough R05 and BMI 50.0-59.9, adult Z68.43 [place] [address] [place] [id number] [address] [place] [address] Jun, [place] [address] [place] [id number] [place] [address] May, Iron deficiency anemia due t o chronic blood loss D50.0 ; Chronic diarrhea K52.9 ; Essential hypertension I10 ; Type 2 diabetes mellitus with other specified complication E11.69 ; Vitamin D deficiency E55.9 ; Colon stricture K56.699 ; Vitamin B12 deficiency E53.8 ; Hyperlipidemia E78.5 and BMI 50.0-59.9, adult Z68.43 [place] [address] [place] [id number] [address] [place] [address] May, [place] [address] [place] [id number] [place] [address] Apr, Nonhealing wound of heel S91 .309A and Body mass index (BMI) of 50- 59.9 in adult Z68.43 [facility] [id number] [place] [address] Mar, [facility] [address] [address] Mar, BMI 50.0-59.9, adult Z68.43 ; Flank pain R10.9 and Weight loss counseling, encounter for Z71.3 [place] [address] [address] February, [place] [address] [address] Jan, [place] [address] [address] Jan, [facility] [address] [place] [id number] [place] [address] Jan, Diarrhea due to staphylococc us A04.8 and Diarrhea, unspecified type R19.7 [place] [address] [place] [id number] [place] [address] Jan, Acquired hypothyroidism E03. 9 ; Type 2 diabetes mellitus with other specified complication E11.69 ; Hyperlipidemia E78.5 ; Essential hypertension I10 ; Major depressive disorder, recurrent episode, moderate F33.1 and Vitamin D deficiency E55.9 [place] [address] [place] [id number] [place] [id number] Jan, Type 2 diabetes mellitus wit h other specified complication E11.69 ; Hyperlipidemia E78.5 ; Essential hypertension I10 ; Acquired hypothyroidism E03.9 ; Major depressive disorder, recurrent episode, moderate F33.1 ; Vitamin D deficiency E55.9 ; Sinus congestion R09.81 and BMI 50.0-59.9, adult Z68.43 [place] [address] [place] [id number] [place] [address] Dec, [facility] [address] [facility] [id number] [address] [place] [address] Sep, Encounter for immunization Z 23 [facility] [address] [facility] [id number] [address] [place] [address] Sep, [facility] [address] [place] [id number] [place] [address] Sep, Vitamin B12 deficiency E53.8 [place] [address] [facility] [id number] [address] [place] [address] Aug, [place] [address] [address] Aug, BMI 60.0-69.9, adult Z68.44 and Acute non-recurrent maxillary sinusitis J01.00 [place] [address] [place] [id number] [place] [address] Aug, [place] [address] [place] [id number] [place] [address] Aug, Medicare annual wellness vis it, initial Z00.00 ; Screening for breast cancer Z12.31 ; BMI 40.0-44.9, adult Z68.41 and Acquired hypothyroidism E03.9 [place] [address] [place] [id number] [place] [address] Jul, Actinic keratosis L57.0 [place] [address] [place] [id number] [place] [address] Jul, Actinic keratosis L57.0 [place] [address] [place] [id number] [place] [address] Jul, Type 2 diabetes mellitus wit h other specified complication E11.69 ; Actinic keratosis L57.0 and Hypothyroidism, unspecified E03.9 [place] [address] [place] [id number] [place] [address] Jul, [place] [address] [address] Jul, [place] [address] [address] Jul, Vitamin B12 deficiency E53.8 [place] [address] [address] Jun, Acquired hypothyroidism E03. 9 and Chronic tension-type headache, intractable G44.221 [place] [address] [address] Jun, Back muscle spasm M62.830 an d BMI 50.0-59.9, adult Z68.43 [place] [address] [address] Jun, Vitamin B12 deficiency E53.8 [place] [address] [address] Jun, Crohn's disease of both smal l and large intestine with complication K50.819 [place] [address] [address] Jun, Crohn's disease of both smal l and large intestine with complication K50.819 [place] [address] [address] May, Hyperlipidemia E78.5 ; Anxie ty F41.9 and Essential hypertension I10 [place] [address] [address] May, [place] [address] [address] May, Encounter for immunization Z 23 and Vitamin B12 deficiency E53.8 [place] [address] [place] [id number] [place] [address] May, [place] [address] [address] Apr, [place] [address] [facility] [id number] [address] [place] [address] Apr, [place] [address] [facility] [id number] [address] [place] [address] Apr, Crohn's disease of both smal l and large intestine with complication K50.819 [place] [address] [facility] [id number] [address] [place] [address] Apr, Vitamin B12 deficiency E53.8 [place] [address] [facility] [id number] [address] [place] [address] Apr, Crohn's disease of both smal l and large intestine with complication K50.819 and Acute pain of right shoulder M25.511 [place] [address] [facility] [id number] [address] [place] [address] Mar, Type 2 diabetes mellitus wit hout complication E11.9 ; Frequent falls R29.6 and Other chest pain R07.89 [place] [address] [facility] [id number] [address] [place] [address] Mar, [place] [address] [facility] [id number] [address] [place] [address] Mar, [place] [address] [facility] [id number] [address] [place] [address] Mar, Type 2 diabetes mellitus wit hout complication E11.9 and Blurry vision, bilateral H53.8 [place] [address] [facility] [id number] [address] [place] [address] Mar, Vitamin B12 deficiency E53.8 [place] [address] [facility] [id number] [address] [place] [address] Mar, Crohn's disease of both smal l and large intestine with complication K50.819 [place] [address] [facility] [id number] [address] [place] [address] February, Vitamin B12 deficiency E53.8 [place] [address] [facility] [id number] [address] [place] [address] Jan, Crohn's disease of both smal l and large intestine with complication K50.819 [facility] [address] [facility] [id number] [address] [place] [address] Jan, Crohn's disease of both smal l and large intestine with complication K50.819 [facility] [address] [facility] [id number] [address] [place] [address] Jan, Dark brown-colored urine R82 .99 and Acute suppurative otitis media of right ear without spontaneous rupture of tympanic membrane, recurrence not specified H66.001 [facility] [address] [place] [id number] [place] [address] Jan, Encounter for immunization Z 23 [place] [address] [facility] [id number] [address] [place] [address] Dec, Crohn's disease of both smal l and large intestine with complication K50.819 and Eustachian tube dysfunction, right H69.81 [facility] [address] [facility] [id number] [address] [place] [address] Dec, [place] [address] [facility] [id number] [address] [place] [address] Dec, Contusion of right knee, ini tial encounter S80.01XA [place] [address] [place] [id number] [place] [address] Dec, [place] [address] [facility] [id number] [address] [place] [address] Dec, Acute pain of right knee M25 .561 [place] [address] [place] [id number] [place] [address] Dec, Iron deficiency anemia due t o chronic blood loss D50.0 [place] [address] [place] [id number] [place] [address] Dec, Hyperlipidemia E78.5 ; Type 2 diabetes mellitus without complication E11.9 ; Vitamin B12 deficiency E53.8 ; Essential hypertension I10 ; Obstructive sleep apnea on CPAP G47.33 and Periodic limb movement sleep disorder G47.61 [facility] [address] [facility] [id number] [address] [place] [address] 22 Nov, 2016 Type 2 diabetes mellitus wit hout complication E11.9 ; Vitamin B12 deficiency E53.8 ; Hyperlipidemia E78.5 ; Essential hypertension I10 ; Obstructive sleep apnea on CPAP G47.33 ; Periodic limb movement sleep disorder G47.61 ; Anxiety F41.9 ; Acquired hypothyroidism E03.9 and Chronic tension-type headache, intractable G44.221 [place] [address] [facility] [id number] [address] [place] [address] 10 Nov, 2016 Crohn's disease of both smal l and large intestine with complication K50.819 [place] [address] [facility] [id number] [address] [place] [address] Nov, Vitamin B12 deficiency E53.8 [place] [address] [facility] [id number] [address] [place] [address] Oct, [place] [address] [facility] [id number] [address] [place] [address] Oct, Vitamin B12 deficiency E53.8 [place] [address] [facility] [id number] [address] [place] [address] Sep, [place] [address] [facility] [id number] [address] [place] [address] Sep, Vitamin B12 deficiency E53.8 [place] [address] [facility] [id number] [address] [place] [address] Aug, [place] [address] [facility] [id number] [address] [place] [address] 14 Aug, 2016 Vitamin B12 deficiency E53.8 [place] [address] [facility] [id number] [address] [place] [address] Aug, [place] [address] [facility] [id number] [address] [place] [address] Jul, Elevated ALT measurement R74 .0 [place] [address] [address] Jul, Hematuria R31.9 ; Acute righ t-sided thoracic back pain M54.6 ; Major depressive disorder, recurrent episode, moderate F33.1 and Elevated ALT measurement R74.0 [place] [address] [address] Jul, [place] [address] [address] Jul, Elevated ALT measurement R74 .0 [place] [address] [address] Jul, Iron deficiency anemia due t o chronic blood loss D50.0 [place] [address] [address] Jul, Type 2 diabetes mellitus wit hout complication E11.9 ; Acquired hypothyroidism E03.9 ; Iron deficiency anemia due to chronic blood loss D50.0 ; Hyperlipidemia E78.5 and Essential hypertension I10 [place] [address] [place] [id number] [place] [address] Jun, [place] [address] [place] [id number] [place] [address] Jun, Vitamin B12 deficiency E53.8 [place] [address] [address] 16 Jun, 2016 Type 2 diabetes mellitus wit hout complication E11.9 ; Acquired hypothyroidism E03.9 ; Iron deficiency anemia due to chronic blood loss D50.0 ; Hyperlipidemia E78.5 ; Essential hypertension I10 ; Chronic tension-type headache, intractable G44.221 ; Pulsatile tinnitus, bilateral H93.13 ; Obstructive sleep apnea on CPAP G47.33 and Major depressive disorder, recurrent episode, moderate F33.1 [place] [address] [place] [id number] [address] [place] [address] May, Vitamin B12 deficiency E53.8 [facility] [address] [facility] [id number] [address] [place] [address] 08 May, 2016 [facility] [address] [facility] [id number] [address] [place] [address] Apr, Vitamin B12 deficiency E53.8 [facility] [address] [facility] [id number] [address] [place] [address] Apr, [facility] [address] [facility] [id number] [address] [place] [address] Mar, Chronic tension-type headach e, intractable G44.221 and Major depressive disorder, recurrent episode, moderate F33.1 [facility] [address] [facility] [id number] [address] [place] [address] Mar, Vitamin B12 deficiency E53.8 [facility] [address] [place] [id number] [address] [place] [address] February, [facility] [address] [facility] [id number] [address] [place] [address] February, Vitamin B12 deficiency E53.8 [facility] [address] [facility] [id number] [address] [place] [address] February, [facility] [address] [facility] [id number] [address] [place] [address] Jan, Dysuria R30.0 [facility] [address] [facility] [id number] [address] [place] [address] 22 Jan, 2016 Type 2 diabetes mellitus wit hout complication E11.9 and Essential hypertension I10 [facility] [address] [facility] [id number] [address] [place] [address] 15 Jan, 2016 Chronic diarrhea K52.9 [facility] [address] [facility] [id number] [address] [place] [address] 13 Jan, 2016 [facility] [address] [place] [id number] [address] [place] [address] Jan, Chronic diarrhea K52.9 [facility] [address] [place] [address] Jan, [facility] [address] [facility] [id number] [address] [place] [address] Jan, Dysuria R30.0 [facility] [address] [address] Jan, Vitamin B12 deficiency E53.8 [facility] [address] [address] 07 Jan, 2016 Dysuria R30.0 and Iron defic iency anemia due to chronic blood loss D50.0 [place] [address] [place] [id number] [address] [place] [address] 05 Jan, 2016 Dysuria R30.0 [place] [address] [address] Jan, [facility] [address] [place] [id number] [address] [place] [address] 15 Dec, 2015 [place] [address] [address] Dec, Iron deficiency anemia due t o chronic blood loss D50.0 [place] [address] [place] [id number] [place] [address] 10 Dec, 2015 Dysuria R30.0 ; Fatigue R53. 83 ; Hyperlipidemia E78.5 and Diarrhea R19.7 [place] [id number] [place] [address] Dec, [place] [address] [address] 02 Dec, 2015 [facility] [address] [place] [id number] [place] [address] 10 Nov, 2015 Vitamin B12 deficiency E53.8 [place] [address] [address] Oct, Vitamin B12 deficiency E53.8 [facility] [address] [facility] [id number] [address] [place] [address] 12 Oct, 2015 [facility] [address] [facility] [id number] [address] [place] [address] 09 Oct, 2015 Headache R51 [facility] [address] [place] [id number] [address] [place] [address] 07 Oct, 2015 Essential hypertension I10 ; Type 2 diabetes mellitus without complication E11.9 ; Vitamin B12 deficiency E53.8 ; Acquired hypothyroidism E03.9 ; Iron deficiency anemia due to chronic blood loss D50.0 and Hyperlipidemia E78.5 [place] [address] [place] [id number] [place] [address] 17 Sep, 2015 Essential hypertension I10 ; Vitamin B12 deficiency E53.8 ; Iron deficiency anemia due to chronic blood loss D50.0 ; Type 2 diabetes mellitus without complication E11.9 ; Hyperlipidemia E78.5 and Acquired hypothyroidism E03.9 [facility] [address] [address] [id number] [place] [id number] Sep, [facility] [address] [id number] Sep, [facility] [address] [place] [id number] [place] [id number] 05 Jul, 2015 [facility] [address] [place] [id number] [place] [id number] Jun, [facility] [address] [place] [address] [id number] [place] [id number] 18 Jun, 2015 [facility] [address] [id number] 15 Jun, 2015 Hyperlipidemia 272.4 ; Iron deficiency anemia 280.9 ; Hypothyroidism 244.9 ; Diabetes mellitus without mention of complication, type II or unspecified type, not stated as uncontrolled 250.00 and Hypertension 401.9 [facility] [address] [id number] Jun, [facility] [address] [facility] [id number] [address] [place] [id number] Jun, [facility] [address] [facility] [id number] [address] [place] [id number] May, Hyperlipidemia 272.4 [facility] [address] [facility] [id number] [address] [place] [id number] May, [facility] [address] [place] [id number] [place] [phone] May[place] [facility] [facility] [address] [facility] [id number] [place] [address] Apr, Diabetes mellitus without me ntion of complication, type II or unspecified type, not stated as uncontrolled 250.00 ; Hypothyroidism 244.9 ; Hyperlipidemia 272.4 ; Pain in joint, lower leg 719.46 and RUQ pain 789.01 [facility] [address] [id number] [address] [place] [address] Mar, Sinusitis 473.9 [facility] [facility] [address] [facility] [id number] [address] [place] [id number] Mar, [facility] [id number] [place] [id number] Mar, [facility] [facility] [address] [facility] [id number] [address] [place] [id number] Mar, Hematochezia 578.1 [facility] [address] [facility] [id number] [address] [place] [id number] February, Sinusitis 473.9 [facility] [address] [id number] [address] [place] [id number] February, [facility] [address] [facility] [id number] [address] [place] [phone] Jan, [facility] [address] [id number] [address] [place] [id number] Jan, [facility] [address] [id number] [address] [place] [address], [place] [address] Dec, [facility] [address] [id number] [address] [place] [address], [place] [address] Dec, [facility] [place] [address] [id number] [address] [place] [address], [place] [address] Dec, [facility] [address] [id number] [address] [place] [address], [place] [address] Dec, [facility] [address] [id number] [address] [place] [address], [place] [address] Dec, [facility] [address] [id number] [address] [place] [address], [place] [address] Dec, [facility] [address] [id number] [address] [place] [address], [place] [address] Dec, [facility] [address] [id number] [address] [place] [address], [place] [address] Dec, [facility] [address] [id number] [address] [place] [address], [place] [address] Dec, [facility] [address] [id number] [address] [place] [address], [place] [address] Dec, [facility] [address] [id number] [address] [place] [address], [place] [address] Dec, [facility] [address] [id number] [address] [place] [address], [place] [address] Nov, [facility] [address] [id number] [address] [place] [address], [place] [address] Nov, [facility] [address] [id number] [address] [place] [address], [place] [address] Nov, [facility] [address] [id number] [address] [place] [address], [place] [address] Nov, [facility] [address] [id number] [address] [place] [address], [place] [address] Oct, [facility] [address] [id number] [address] [place] [address], [place] [address] Oct, [facility] [address] [id number] [address] [place] [address], [place] [address] Oct, [facility] [address] [id number] [address] [place] [address], [place] [address] Oct, [facility] [address] [id number] [address] [place] [address], [place] [address] Oct, [facility] [address] [id number] [address] [place] [address], [place] [address] Oct, [facility] [address] [id number] [address] [place] [address], [place] [address] Sep, [facility] [address] [id number] [address] [place] [address], [place] [address] Sep, [facility] [address] [id number] [address] [place] [address], [place] [address] Sep, [facility] [address] [id number] [address] [place] [address], [place] [address] Sep, [facility] [address] [id number] [address] [place] [address], [place] [address] Sep, [facility] [address] [id number] [address] [place] [address], [place] [address] Sep, [facility] [address] [id number] [address] [place] [address], [place] [address] Sep, [facility] [address] [id number] [address] [place] [address], [place] [address] Aug, [facility] [address] [id number] [address] [place] [address], [place] [address] Aug, [facility] [address] [id number] [address] [place] [address], [place] [address] Aug, [facility] [address] [id number] [address] [place] [address], [place] [address] Aug, [facility] [address] [id number] [address] [place] [address], [place] [address] Aug, [facility] [address] [id number] [address] [place] [address], [place] [address] Aug, [facility] [address] [id number] [address] [place] [address], [place] [address] Aug, [facility] [address] [id number] [address] [place] [address], [place] [address] Aug, [facility] [address] [id number] [address] [place] [address], [place] [address] Aug, [facility] [address] [id number] [address] [place] [address], [place] [address] Aug, [facility] [address] [id number] [address] [place] [address], [place] [address] Aug, [facility] [address] [id number] [address] [place] [address], [place] [address] Aug, [facility] [address] [id number] [address] [place] [address], [place] [address] Aug, [facility] [address] [id number] [address] [place] [address], [place] [address] Aug, [facility] [address] [id number] [address] [place] [address], [place] [address] Jul, [facility] [address] [id number] [address] [place] [address], [place] [address] Jul, [facility] [address] [id number] [address] [place] [address], [place] [address] Jul, [facility] [address] [id number] [address] [place] [address], [place] [address] Jul, [facility] [address] [id number] [address] [place] [address], [place] [address] 24 Jun, 2013 [facility] [address] [id number] [address] [place] [address], [place] [address] 24 Jun, 2013 [facility] [address] [id number] [address] [place] [address], [place] [address] 23 Jun, 2013 [facility] [address] [id number] [address] [place] [address], [place] [address] 23 Jun, 2013 [facility] [address] [id number] [address] [place] [address], [place] [address] 19 Jun, 2013 [facility] [address] [id number] [address] [place] [address], [place] [address] 19 Jun, 2013 [facility] [address] [id number] [address] [place] [address], [place] [address] 11 Jun, 2013 [facility] [address] [id number] [address] [place] [address], [place] [address] 11 Jun, 2013 [facility] [address] [id number] [address] [place] [address], [place] [address] 11 Jun, 2013 [facility] [address] [id number] [address] [place] [address], [place] [address] 11 Jun, 2013 [facility] [address] [id number] [address] [place] [address], [place] [address] 10 Jun, 2013 [facility] [address] [id number] [address] [place] [address], [place] [address] 10 Jun, 2013 [facility] [address] [id number] [address] [place] [address], [place] [address] 09 Jun, 2013 [facility] [address] [id number] [address] [place] [address], [place] [address] 09 Jun, 2013 [facility] [address] [id number] [address] [place] [address], [place] [address] 14 May, 2014 [facility] [address] [id number] [address] [place] [address], [place] [address] 14 May, 2014 [facility] [address] [id number] [facility] [address] May, [facility] [address] [id number] [facility] [place] [address] May, [facility] [address] [id number] [facility] [address] May, [facility] [address] [id number] [address] [place] [address], [place] [address] May, [facility] [address] [id number] [facility] [address] Apr, [facility] [address] [id number] [address] [place] [address], [place] [address] Apr, [facility] [address] [id number] [address] [place] [address], [place] [address] Apr, [facility] [address] [id number] [address] [place] [address], [place] [address] Apr, [facility] [address] [id number] [address] [place] [address], [place] [address] Apr, [facility] [address] [id number] [address] [place] [address], [place] [address] Apr, [facility] [address] [id number] [address] [place] [address], [place] [address] Apr, [facility] [address] [id number] [address] [place] [address], [place] [address] Apr, [facility] [address] [id number] [address] [place] [address], [place] [address] Apr, [facility] [address] [id number] [address] [place] [address], [place] [address] Apr, [facility] [address] [id number] [address] [place] [address], [place] [address] Apr, [facility] [address] [id number] [address] [place] [address], [place] [address] Mar, [facility] [address] [id number] [address] [place] [address], [place] [address] Mar, [facility] [address] [id number] [address] [place] [address], [place] [address] Mar, [facility] [address] [id number] [address] [place] [address], [place] [address] Mar, [facility] [address] [id number] [address] [place] [address], [place] [address] February, [facility] [address] [id number] [address] [place] [address], [place] [address] February, [facility] [address] [id number] [address] [place] [address], [place] [address] Jan, [facility] [address] [id number] [address] [place] [address], [place] [address] Jan, [address] [id number] Jan, [facility] [address] [id number] [address] [place] [address], [place] [address] Jan, [facility] [address] [id number] [address] [place] [address], [place] [address] Jan, [facility] [address] [id number] [address] [place] [address], [place] [address] Jan, [facility] [address] [id number] [address] [place] [address], [place] [address] Jan, [facility] [address] [id number] [address] [place] [address], [place] [address] Jan, [facility] [address] [id number] [address] [place] [address], [place] [address] Jan, [facility] [address] [id number] [address] [place] [address], [place] [address] Jan, [facility] [address] [id number] [address] [place] [address], [place] [address] Jan, [facility] [address] [id number] [facility] [address] Jan, [facility] [address] [id number] [address] [place] [address], [place] [address] Jan, [facility] [address] [id number] [facility] [address] Jan, [facility] [address] [id number] [address] [place] [address], [place] [address] Jan, [facility] [address] [id number] [address] [place] [address], [place] [address] Jan, [facility] [address] [id number] [address] [place] [address], [place] [address] Jan, [facility] [address] [id number] [address] [place] [address], [place] [address] Dec, [facility] [address] [id number] [address] [place] [address], [place] [address] Dec, [facility] [address] [id number] [address] [place] [address], [place] [address] Dec, [facility] [address] [id number] [address] [place] [address], [place] [address] Dec, [facility] [address] [id number] [address] [place] [address], [place] [address] Dec, [facility] [address] [id number] [address] [place] [address], [place] [address] Dec, [facility] [address] [id number] [address] [place] [address], [place] [address] Dec, [facility] [address] [id number] [address] [place] [address], [place] [address] Nov, [facility] [address] [id number] [address] [place] [address], [place] [address] Nov, [facility] [address] [id number] [address] [address] Nov, [facility] [address] [id number] [address] [place] [address], [place] [address] Nov, [facility] [address] [id number] [address] [place] [address], [place] [address] Nov, [facility] [address] [id number] [address] [place] [address], [place] [address] Nov, [facility] [address] [id number] [address] [place] [address], [place] [address] Nov, [facility] [address] [id number] [address] [place] [address], [place] [address] Oct, [facility] [address] [id number] [address] [place] [address], [place] [address] Oct, [facility] [address] [id number] [address] [place] [address], [place] [address] Sep, [facility] [address] [id number] [address] [place] [address], [place] [address] Sep, [facility] [address] [id number] [address] [place] [address], [place] [address] Sep, [facility] [address] [id number] [address] [place] [address], [place] [address] Sep, [facility] [address] [id number] [address] [place] [address], [place] [address] Sep, [facility] [address] [id number] [address] [place] [address], [place] [address] Sep, [facility] [address] [id number] [address] [place] [address], [place] [address] Sep, [facility] [address] [id number] [address] [place] [address], [place] [address] Sep, [facility] [address] [id number] [address] [place] [address], [place] [address] Sep, [facility] [facility] [address] [id number] [address] [place] [address] Sep, [facility] [facility] [address] [id number] [address] [place] [address] Aug, [facility] [address] [id number] [address] [place] [address] Aug, [facility] [address] [id number] [address] [place] [address] Aug, [facility] [place] [facility] [address] [id number] [address] [place] [address] Aug, [facility] [address] [id number] [address] [place] [id number] Aug, [facility] [address] [id number] [address] [place] [id number] Jul, [facility] [facility] [address] [id number] [address] [place] [address] Jul, [facility] [facility] [address] [id number] [address] [place] [id number] Jul, [facility] [facility] [address] [id number] [address] [place] [id number] Jul, IMMUNIZATIONS No Known Immunizations SOCIAL HISTORY [...]
--- OUTSIDE RECORDS SUMMARY | 2020-03-16 11:53 | XMS REPORT ---
Author Author Swathi OCAMPO [facility] Address [address] [place] [address] Care Team Providers Care Manager Clinical Name Role Phone PAOLO OCAMPO Unavailable PROBLEMS Type Condition ICD9-CM Code [id number] Code Onset Dates Condition S tatus SNOMED Code Problem Sensorineural hearing loss of right ear H90.41 Active 28023641 Problem Obstructive sleep apnea on CPAP G47.33 Active 00385856 Problem Periodic limb movement sleep disorder G47.61 Active 536422941 Problem Iron deficiency anemia due to chronic blood loss D 50.0 Active 95902536 Problem MACHUCA (nonalcoholic steatohepatitis) K75.81 Active 342496065 Problem Vitamin B12 deficiency E53.8 Active 310058331 Problem Chronic diarrhea K52.9 Active 236 055905 Problem Vitamin D deficiency E55.9 Active 40267641 Problem BMI 50.0-59.9, adult Z68.43 Active 635406424 Problem Fatty liver K76.0 Active 49186059 7 Problem Anxiety F41.9 Active 73430651 Problem Major depressive disorder, recurrent episode, moderate F33.1 Active 301362576 Problem Chronic tension-type headache, intractable G44.221 Active 473628388 Problem Right upper quadrant pain R10.11 Acti ve 05601805 Problem Frequent falls R29.6 Active 85055 2002 Problem Crohn's disease of both small and large intestin e with complication K50.819 Active 23101210 Problem Type 2 diabetes mellitus with other specified complication E11.69 Active 193514357690 Problem Hyperlipidemia, unspecified E78.5 Ac tive 65402798 Problem Mixed stress and urge urinary incontinence N39.46 Active 083477415 Problem Sinusitis chronic, frontal J32.1 Act katlyn 02814799 Problem Seasonal allergies J30.2 Active 4 34916770 Problem Other chronic pain G89.29 Active 8 3509837 Problem Hyperlipidemia E78.5 Active 46353 004 Problem Bilateral primary osteoarthritis of knee M17.0 Active 190815029 Problem Essential hypertension I10 Active 02547012 Problem Acquired hypothyroidism E03.9 Active 167283348 Problem History of hysterectomy for benign disease Z90.710 Active 211881094 Problem Morbid (severe) obesity due to excess calories E66 .01 Active 378895237 Problem Other cirrhosis of liver K74.69 Activ e 92381705 Problem Portal hypertension K76.6 Active 58589349 ALLERGIES No Information ENCOUNTERS Encounter Location Date Diagnosis [facility] [address] [place] [address] Jun, Pneumonia of right middle lobe due to in fectious organism J18.1 and Cough R05 [facility] [address] [place] [address] Jun, Acute nasopharyngitis J00 [facility] [address] [facility] [id number] [address] [place] [address] May, Iron deficiency anemia due t o [...] Major depressive disorder, recurrent episode, moderate F33.1 [facility] [address] [facility] [id number] [address] [place] [phone] May, Hyperlipidemia, unspecified E78.5 ; Other cirrhosis of liver K74.69 and Iron deficiency anemia due to chronic blood loss D50.0 [facility] [address] [facility] [id number] [address] [place] [address] February, [facility] [address] [place] [address] February, Acute recurrent pansinusitis J01.41 [facility] [address] [place] [address] February, Acute maxillary sinusitis, recurrence no t specified J01.00 [facility] [address] [place] [id number] [place] [address] Jan, Bilateral primary osteoarthr itis of knee M17.0 ; Morbid obesity E66.01 ; Viral syndrome B34.9 and Atrial dilatation, left I51.7 [place] [address] [address] Jan, [place] [address] [address] Dec, Trigeminy R00.[address] [address] Dec, Essential hypertension I10 ; Morbid obesity E66.01 ; Low back pain M54.5 ; Other chronic pain G89.29 and Pain in right knee M25.561 [place] [address] [address] Nov, [place] [address] [address] Oct, Palpitations R00.[address] [address] Oct, Encounter for Medicare annua l wellness [...] small and large intestine with complication K50.819 [place] [address] [place] [id number] [place] [address] Oct, [place] [address] [address] Oct, Crohn's disease of both smal l and large intestine with complication K50.819 [facility] [address] [place] [id number] [address] [place] [address] 11 Jul, 2018 Sinusitis chronic, frontal J 32.1 ; Acute mucoid otitis media of both ears H65.113 ; Seasonal allergies J30.2 and BMI 50.0-59.9, adult Z68.43 [facility] [address] [address] 02 Jul, 2018 Essential hypertension I10 ; Type 2 diabetes mellitus with other specified complication E11.69 ; BMI 50.0-59.9, adult Z68.43 ; Mixed stress and urge urinary incontinence N39.46 and Mid back pain on right side M54.9 [place] [address] [place] [address] 26 Jun, 2018 Iron deficiency anemia due t o chronic blood loss D50.0 ; Hyperlipidemia E78.5 ; Type 2 diabetes mellitus with other specified complication E11.69 ; Vitamin B12 deficiency E53.8 and Vitamin D deficiency E55.9 [facility] [address] [place] [id number] [address] [place] [id number] 14 Jun, 2018 Cough R05 and BMI 50.0-59.9, adult Z68.43 [facility] [address] [place] [id number] [address] [place] [address] Jun, [place] [address] [place] [id number] [address] [place] [address] May, Iron deficiency anemia due t o chronic blood loss D50.0 ; Chronic diarrhea K52.9 ; Essential hypertension I10 ; Type 2 diabetes mellitus with other specified complication E11.69 ; Vitamin D deficiency E55.9 ; Colon stricture K56.699 ; Vitamin B12 deficiency E53.8 ; Hyperlipidemia E78.5 and BMI 50.0-59.9, adult Z68.43 [facility] [address] [place] [id number] [address] [place] [address] May, [place] [address] [address] Apr, Nonhealing wound of heel S91 .309A and Body mass index (BMI) of 50- 59.9 in adult Z68.43 [place] [address] [address] Mar, [place] [address] [address] Mar, BMI 50.0-59.9, adult Z68.43 ; Flank pain R10.9 and Weight loss counseling, encounter for Z71.[address] [address] February, [place] [address] [address] Jan, [place] [address] [address] Jan, [facility] [address] [address] Jan, Diarrhea due to staphylococc us A04.8 and Diarrhea, unspecified type R19.[address] [address] Jan, Acquired hypothyroidism E03. 9 ; Type 2 diabetes mellitus with other specified complication E11.69 ; Hyperlipidemia E78.5 ; Essential hypertension I10 ; Major depressive disorder, recurrent episode, moderate F33.1 and Vitamin D deficiency E55.9 [place] [address] [address] Jan, Type 2 diabetes mellitus wit h other specified complication E11.69 ; Hyperlipidemia E78.5 ; Essential hypertension I10 ; Acquired hypothyroidism E03.9 ; Major depressive disorder, recurrent episode, moderate F33.1 ; Vitamin D deficiency E55.9 ; Sinus congestion R09.81 and BMI 50.0-59.9, adult Z68.43 [place] [address] [address] Dec, [facility] [address] [facility] [id number] [address] [place] [address] Sep, Encounter for immunization Z 23 [facility] [address] [facility] [id number] [address] [place] [address] Sep, [facility] [address] [facility] [id number] [address] [place] [address] Sep, Vitamin B12 deficiency E53.8 [facility] [address] [place] [id number] [address] [place] [address] Aug, [place] [address] [address] Aug, BMI 60.0-69.9, adult Z68.44 and Acute non-recurrent maxillary sinusitis J01.00 [place] [address] [place] [id number] [address] [place] [address] Aug, [place] [address] [place] [id number] [address] [place] [address] Aug, Medicare annual wellness vis it, initial Z00.00 ; Screening for breast cancer Z12.31 ; BMI 40.0-44.9, adult Z68.41 and Acquired hypothyroidism E03.9 [place] [address] [place] [id number] [address] [place] [address] Jul, Actinic keratosis L57.0 [place] [address] [place] [id number] [address] [place] [address] Jul, Actinic keratosis L57.0 [place] [address] [place] [id number] [address] [place] [address] Jul, Type 2 diabetes mellitus wit h other specified complication E11.69 ; Actinic keratosis L57.0 and Hypothyroidism, unspecified E03.9 [facility] [address] [place] [id number] [address] [place] [address] Jul, [place] [address] [address] Jul, [facility] [address] [address] Jul, Vitamin B12 deficiency E53.8 [facility] [address] [place] [id number] [place] [address] Jun, Acquired hypothyroidism E03. 9 and Chronic tension-type headache, intractable G44.221 [place] [address] [address] Jun, Back muscle spasm M62.830 an d BMI 50.0-59.9, adult Z68.43 [place] [address] [address] Jun, Vitamin B12 deficiency E53.8 [place] [address] [address] Jun, Crohn's disease of both smal l and large intestine with complication K50.819 [place] [address] [address] Jun, Crohn's disease of both smal l and large intestine with complication K50.819 [place] [address] [address] May, Hyperlipidemia E78.5 ; Anxie ty F41.9 and Essential hypertension I10 [place] [address] [address] May, [place] [address] [address] May, Encounter for immunization Z 23 and Vitamin B12 deficiency E53.8 [facility] [address] [place] [id number] [address] [place] [address] May, [place] [address] [address] Apr, [place] [address] [id number] [address] [place] [address] Apr, [place] [address] [facility] [id number] [address] [place] [address] Apr, Crohn's disease of both smal l and large intestine with complication K50.819 [place] [address] [id number] [address] [place] [address] Apr, Vitamin B12 deficiency E53.8 [place] [address] [id number] [address] [place] [address] Apr, Crohn's disease of both smal l and large intestine with complication K50.819 and Acute pain of right shoulder M25.511 [place] [address] [facility] [id number] [address] [place] [address] Mar, Type 2 diabetes mellitus wit hout complication E11.9 ; Frequent falls R29.6 and Other chest pain R07.89 [place] [address] [facility] [id number] [address] [place] [address] Mar, [place] [address] [facility] [id number] [address] [place] [address] Mar, [place] [address] [facility] [id number] [address] [place] [address] Mar, Type 2 diabetes mellitus wit hout complication E11.9 and Blurry vision, bilateral H53.8 [place] [address] [facility] [id number] [address] [place] [address] Mar, Vitamin B12 deficiency E53.8 [place] [address] [facility] [id number] [address] [place] [address] Mar, Crohn's disease of both smal l and large intestine with complication K50.819 [place] [address] [facility] [id number] [address] [place] [address] February, Vitamin B12 deficiency E53.8 [place] [address] [facility] [id number] [address] [place] [address] Jan, Crohn's disease of both smal l and large intestine with complication K50.819 [facility] [address] [facility] [id number] [address] [place] [address] Jan, Crohn's disease of both smal l and large intestine with complication K50.819 [facility] [address] [place] [id number] [address] [place] [address] Jan, Dark brown-colored urine R82 .99 and Acute suppurative otitis media of right ear without spontaneous rupture of tympanic membrane, recurrence not specified H66.001 [facility] [address] [place] [address] Jan, Encounter for immunization Z 23 [facility] [address] [place] [id number] [place] [address] Dec, Crohn's disease of both smal l and large intestine with complication K50.819 and Eustachian tube dysfunction, right H69.81 [facility] [address] [place] [address] Dec, [place] [address] [place] [id number] [place] [address] Dec, Contusion of right knee, ini tial encounter S80.01XA [place] [address] [place] [address] Dec, [facility] [address] [place] [id number] [address] [place] [address] Dec, Acute pain of right knee M25 .561 [facility] [address] [place] [id number] [place] [address] Dec, Iron deficiency anemia due t o chronic blood loss D50.0 [place] [address] [place] [id number] [address] [place] [address] Dec, Hyperlipidemia E78.5 ; Type 2 diabetes mellitus without complication E11.9 ; Vitamin B12 deficiency E53.8 ; Essential hypertension I10 ; Obstructive sleep apnea on CPAP G47.33 and Periodic limb movement sleep disorder G47.61 [facility] [address] [facility] [id number] [address] [place] [address] 22 Nov, 2016 Type 2 diabetes mellitus wit hout complication E11.9 ; Vitamin B12 deficiency E53.8 ; Hyperlipidemia E78.5 ; Essential hypertension I10 ; Obstructive sleep apnea on CPAP G47.33 ; Periodic limb movement sleep disorder G47.61 ; Anxiety F41.9 ; Acquired hypothyroidism E03.9 and Chronic tension-type headache, intractable G44.221 [place] [address] [facility] [id number] [address] [place] [address] 10 Nov, 2016 Crohn's disease of both smal l and large intestine with complication K50.819 [place] [address] [facility] [id number] [address] [place] [address] Nov, Vitamin B12 deficiency E53.8 [place] [address] [facility] [id number] [address] [place] [address] Oct, [facility] [address] [id number] [address] [place] [address] Oct, Vitamin B12 deficiency E53.8 [facility] [address] [facility] [id number] [address] [place] [address] Sep, [facility] [address] [facility] [id number] [address] [place] [address] 15 Sep, 2016 Vitamin B12 deficiency E53.8 [facility] [address] [id number] [address] [place] [address] Aug, [place] [address] [facility] [id number] [address] [place] [id number] 14 Aug, 2016 Vitamin B12 deficiency E53.8 [facility] [address] [facility] [id number] [address] [place] [address] 10 Aug, 2016 [facility] [address] [facility] [id number] [address] [place] [address] Jul, Elevated ALT measurement R74 .0 [place] [address] [facility] [id number] [address] [place] [address] Jul, Hematuria R31.9 ; Acute righ t-sided thoracic back pain M54.6 ; Major depressive disorder, recurrent episode, moderate F33.1 and Elevated ALT measurement R74.0 [place] [address] [place] [id number] [address] [place] [address] Jul, [place] [address] [facility] [id number] [address] [place] [address] Jul, Elevated ALT measurement R74 .0 [place] [address] [place] [id number] [place] [address] Jul, Iron deficiency anemia due t o chronic blood loss D50.0 [place] [address] [place] [id number] [place] [address] Jul, Type 2 diabetes mellitus wit hout complication E11.9 ; Acquired hypothyroidism E03.9 ; Iron deficiency anemia due to chronic blood loss D50.0 ; Hyperlipidemia E78.5 and Essential hypertension I10 [place] [address] [address] Jun, [place] [address] [place] [id number] [place] [address] Jun, Vitamin B12 deficiency E53.8 [place] [address] [place] [id number] [address] [place] [address] 16 Jun, 2016 Type 2 diabetes mellitus wit hout complication E11.9 ; Acquired hypothyroidism E03.9 ; Iron deficiency anemia due to chronic blood loss D50.0 ; Hyperlipidemia E78.5 ; Essential hypertension I10 ; Chronic tension-type headache, intractable G44.221 ; Pulsatile tinnitus, bilateral H93.13 ; Obstructive sleep apnea on CPAP G47.33 and Major depressive disorder, recurrent episode, moderate F33.1 [place] [address] [place] [id number] [address] [place] [address] May, Vitamin B12 deficiency E53.8 [facility] [address] [facility] [id number] [address] [place] [address] 08 May, 2016 [facility] [address] [facility] [id number] [address] [place] [address] Apr, Vitamin B12 deficiency E53.8 [facility] [address] [facility] [id number] [address] [place] [address] Apr, [facility] [address] [facility] [id number] [address] [place] [address] Mar, Chronic tension-type headach e, intractable G44.221 and Major depressive disorder, recurrent episode, moderate F33.1 [facility] [address] [facility] [id number] [address] [place] [address] Mar, Vitamin B12 deficiency E53.8 [facility] [address] [facility] [id number] [address] [place] [address] February, [facility] [address] [facility] [id number] [address] [place] [address] February, Vitamin B12 deficiency E53.8 [facility] [address] [facility] [id number] [address] [place] [address] February, [facility] [address] [facility] [id number] [address] [place] [address] Jan, Dysuria R30.0 [facility] [address] [facility] [id number] [address] [place] [address] Jan, Type 2 diabetes mellitus wit hout complication E11.9 and Essential hypertension I10 [facility] [address] [facility] [id number] [address] [place] [address] 15 Jan, 2016 Chronic diarrhea K52.9 [facility] [address] [facility] [id number] [address] [place] [address] Jan, [facility] [address] [facility] [id number] [address] [place] [address] 12 Jan, 2016 Chronic diarrhea K52.9 [facility] [address] [place] [id number] [place] [address] Jan, [facility] [address] [address] 12 Jan, 2016 Dysuria R30.0 [facility] [address] [address] 07 Jan, 2016 Vitamin B12 deficiency E53.8 [facility] [address] [address] 07 Jan, 2016 Dysuria R30.0 and Iron defic iency anemia due to chronic blood loss D50.0 [place] [address] [address] 05 Jan, 2016 Dysuria R30.0 [facility] [address] [address] 04 Jan, 2016 [facility] [address] [address] 15 Dec, 2015 [place] [address] [address] 11 Dec, 2015 Iron deficiency anemia due t o chronic blood loss D50.0 [facility] [address] [address] 10 Dec, 2015 Dysuria R30.0 ; Fatigue R53. 83 ; Hyperlipidemia E78.5 and Diarrhea R19.7 [facility] [address] [place] [id number] [place] [id number] 09 Dec, 2015 [place] [address] [address] 02 Dec, 2015 [facility] [address] [address] 10 Nov, 2015 Vitamin B12 deficiency E53.8 [place] [address] [address] Oct, Vitamin B12 deficiency E53.8 [facility] [address] [facility] [id number] [address] [place] [address] Oct, [facility] [address] [facility] [id number] [address] [place] [address] 09 Oct, 2015 Headache R51 [facility] [address] [place] [id number] [address] [place] [address] 07 Oct, 2015 Essential hypertension I10 ; Type 2 diabetes mellitus without complication E11.9 ; Vitamin B12 deficiency E53.8 ; Acquired hypothyroidism E03.9 ; Iron deficiency anemia due to chronic blood loss D50.0 and Hyperlipidemia E78.5 [facility] [address] [place] [id number] [place] [address] 17 Sep, 2015 Essential hypertension I10 ; Vitamin B12 deficiency E53.8 ; Iron deficiency anemia due to chronic blood loss D50.0 ; Type 2 diabetes mellitus without complication E11.9 ; Hyperlipidemia E78.5 and Acquired hypothyroidism E03.9 [facility] [address] [place] [address] 08 Sep, 2015 [facility] [address] [address] Sep, [facility] [address] [place] [id number] [place] [address] Jul, [facility] [address] [place] [address] Jun, [facility] [address] [place] [id number] [address] [place] [id number] 18 Jun, 2015 [facility] [address] [place] [id number] [place] [address] 15 Jun, 2015 Hyperlipidemia 272.4 ; Iron deficiency anemia 280.9 ; Hypothyroidism 244.9 ; Diabetes mellitus without mention of complication, type II or unspecified type, not stated as uncontrolled 250.00 and Hypertension 401.9 [facility] [address] [place] [id number] [place] [address] Jun, [facility] [address] [facility] [id number] [address] [place] [address] Jun, [facility] [address] [facility] [id number] [address] [place] [address] May, Hyperlipidemia 272.4 [facility] [address] [facility] [id number] [address] [place] [address] May, [facility] [address] [facility] [id number] [address] [place] [id number] May, [facility] [address] [facility] [id number] [address] [place] [id number] Apr, Diabetes mellitus without me ntion of complication, type II or unspecified type, not stated as uncontrolled 250.00 ; Hypothyroidism 244.9 ; Hyperlipidemia 272.4 ; Pain in joint, lower leg 719.46 and RUQ pain 789.01 [facility] [address] [facility] [id number] [address] [place] [address] [address] Mar, Sinusitis 473.9 [facility] [address] [facility] [id number] [address] [place] [address] Mar, [facility] [address] [place] [id number] [address] [place] [address] Mar, [facility] [address] [facility] [id number] [address] [place] [address] Mar, Hematochezia 578.1 [facility] [address] [facility] [id number] [address] [place] [address] February, Sinusitis 473.9 [facility] [address] [facility] [id number] [address] [place] [address] February, [facility] [address] [facility] [id number] [address] [place] [address] Jan, [facility] [address] [facility] [id number] [address] [place] [address] Jan, [facility] [address] [id number] [address] [place] [address], [place] [address] Dec, [facility] [address] [id number] [address] [place] [address], [place] [address] Dec, [facility] [address] [id number] [address] [place] [address], [place] [address] Dec, [facility] [address] [id number] [address] [place] [address], [place] [address] Dec, [facility] [address] [id number] [address] [place] [address], [place] [address] Dec, [facility] [address] [id number] [address] [place] [address], [place] [address] Dec, [facility] [address] [id number] [address] [place] [address], [place] [address] Dec, [facility] [address] [id number] [address] [place] [address], [place] [address] Dec, [facility] [address] [id number] [address] [place] [address], [place] [address] Dec, [facility] [address] [id number] [address] [place] [address], [place] [address] Dec, [facility] [address] [id number] [address] [place] [address], [place] [address] Dec, [facility] [address] [id number] [address] [place] [address], [place] [address] Nov, [facility] [address] [id number] [address] [place] [address], [place] [address] Nov, [facility] [address] [id number] [address] [place] [address], [place] [address] Nov, [facility] [address] [id number] [address] [place] [address], [place] [address] Nov, [facility] [address] [id number] [address] [place] [address], [place] [address] Oct, [facility] [address] [id number] [address] [place] [address], [place] [address] Oct, [facility] [address] [id number] [address] [place] [address], [place] [address] Oct, [facility] [address] [id number] [address] [place] [address], [place] [address] Oct, [facility] [address] [id number] [address] [place] [address], [place] [address] Oct, [facility] [address] [id number] [address] [place] [address], [place] [address] Oct, [facility] [address] [id number] [address] [place] [address], [place] [address] Sep, [facility] [address] [id number] [address] [place] [address], [place] [address] Sep, [facility] [address] [id number] [address] [place] [address], [place] [address] Sep, [facility] [address] [id number] [address] [place] [address], [place] [address] Sep, [facility] [address] [id number] [address] [place] [address], [place] [address] Sep, [facility] [address] [id number] [address] [place] [address], [place] [address] Sep, [facility] [address] [id number] [address] [place] [address], [place] [address] Sep, [facility] [address] [id number] [address] [place] [address], [place] [address] Aug, [facility] [address] [id number] [address] [place] [address], [place] [address] Aug, [facility] [address] [id number] [address] [place] [address], [place] [address] Aug, [facility] [address] [id number] [address] [place] [address], [place] [address] Aug, [facility] [address] [id number] [address] [place] [address], [place] [address] Aug, [facility] [address] [id number] [address] [place] [address], [place] [address] Aug, [facility] [address] [id number] [address] [place] [address], [place] [address] Aug, [facility] [address] [id number] [address] [place] [address], [place] [address] Aug, [facility] [address] [id number] [address] [place] [address], [place] [address] Aug, [facility] [address] [id number] [address] [place] [address], [place] [address] Aug, [facility] [address] [id number] [address] [place] [address], [place] [address] Aug, [facility] [address] [id number] [address] [place] [address], [place] [address] Aug, [facility] [address] [id number] [address] [place] [address], [place] [address] Aug, [facility] [address] [id number] [address] [place] [address], [place] [address] Aug, [facility] [address] [id number] [address] [place] [address], [place] [address] Jul, [facility] [address] [id number] [address] [place] [address], [place] [address] Jul, [facility] [address] [id number] [address] [place] [address], [place] [address] Jul, [facility] [address] [id number] [address] [place] [address], [place] [address] Jul, [facility] [address] [id number] [address] [place] [address], [place] [address] 24 Sep, 2013 [facility] [address] [id number] [facility] [place] [address] 24 Sep, 2013 [facility] [address] [id number] [facility] [place] [address] 23 Jun, 2013 [facility] [address] [id number] [facility] [place] [address] 23 Jun, 2013 [facility] [address] [id number] [address] [place] [address], [place] [address] 19 Jun, 2013 [facility] [address] [id number] [address] [place] [address], [place] [address] 19 Jun, 2013 [facility] [address] [id number] [address] [place] [address], [place] [address] 11 Jun, 2013 [facility] [address] [id number] [address] [place] [address], [place] [address] 11 Jun, 2013 [facility] [address] [id number] [address] [place] [address], [place] [address] 11 Jun, 2013 [facility] [address] [id number] [address] [place] [address], [place] [address] 11 Jun, 2013 [facility] [address] [id number] [address] [place] [address], [place] [address] 10 Jun, 2013 [facility] [address] [id number] [address] [place] [address], [place] [address] 10 Jun, 2013 [facility] [address] [id number] [address] [place] [address], [place] [address] 09 Jun, 2013 [facility] [address] [id number] [address] [place] [address], [place] [address] 09 Jun, 2013 [facility] [address] [id number] [address] [place] [address], [place] [address] 14 May, 2014 [facility] [address] [id number] [address] [place] [address], [place] [address] 14 May, 2014 [facility] [address] [id number] [address] [place] [address] May, [facility] [address] [id number] [address] [place] [address], [place] [address] May, [facility] [address] [id number] [address] [place] [address] May, [facility] [address] [id number] [address] [place] [address], [place] [address] May, [facility] [address] [id number] [address] [place] [address] Apr, [facility] [address] [id number] [address] [place] [address], [place] [address] Apr, [facility] [address] [id number] [address] [place] [address], [place] [address] Apr, [facility] [address] [id number] [address] [place] [address], [place] [address] Apr, [facility] [address] [id number] [address] [place] [address], [place] [address] Apr, [facility] [address] [id number] [address] [place] [address], [place] [address] Apr, [facility] [address] [id number] [address] [place] [address], [place] [address] Apr, [facility] [address] [id number] [address] [place] [address], [place] [address] Apr, [facility] [address] [id number] [address] [place] [address], [place] [address] Apr, [facility] [address] [id number] [address] [place] [address], [place] [address] Apr, [facility] [address] [id number] [address] [place] [address], [place] [address] Apr, [facility] [address] [id number] [address] [place] [address], [place] [address] Mar, [facility] [address] [id number] [address] [place] [address], [place] [address] Mar, [facility] [address] [id number] [address] [place] [address], [place] [address] Mar, [facility] [address] [id number] [address] [place] [address], [place] [address] Mar, [facility] [address] [id number] [address] [place] [address], [place] [address] February, [facility] [address] [id number] [address] [place] [address], [place] [address] February, [facility] [address] [id number] [address] [place] [address], [place] [address] Jan, [facility] [address] [id number] [address] [place] [address], [place] [address] Jan, [address] [id number] Jan, [facility] [address] [id number] [address] [place] [address], [place] [address] Jan, [facility] [address] [id number] [address] [place] [address], [place] [address] Jan, [facility] [address] [id number] [address] [place] [address], [place] [address] Jan, [facility] [address] [id number] [address] [place] [address], [place] [address] Jan, [facility] [address] [id number] [address] [place] [address], [place] [address] Jan, [facility] [address] [id number] [address] [place] [address], [place] [address] Jan, [facility] [address] [id number] [address] [place] [address], [place] [address] Jan, [facility] [address] [id number] [address] [place] [address], [place] [address] Jan, [facility] [address] [id number] [facility] [place] [address] Jan, [facility] [address] [id number] [address] [place] [address], [place] [address] Jan, [facility] [address] [id number] [address] [place] [address], [place] [address] Jan, [facility] [address] [id number] [address] [place] [address], [place] [address] Jan, [facility] [address] [id number] [address] [place] [address], [place] [address] Jan, [facility] [address] [id number] [address] [place] [address], [place] [address] Jan, [facility] [address] [id number] [address] [place] [address], [place] [address] Dec, [facility] [address] [id number] [address] [place] [address], [place] [address] Dec, [facility] [address] [id number] [address] [place] [address], [place] [address] Dec, [facility] [address] [id number] [address] [place] [address], [place] [address] Dec, [facility] [address] [id number] [address] [place] [address], [place] [address] Dec, [facility] [address] [id number] [address] [place] [address], [place] [address] Dec, [facility] [address] [id number] [address] [place] [address], [place] [address] Dec, [facility] [address] [id number] [address] [place] [address], [place] [address] Nov, [facility] [address] [id number] [address] [place] [address], [place] [address] Nov, [facility] [address] [id number] [address] [place] [address], [place] [address] Nov, [facility] [place] [address] [id number] [address] [place] [address], [place] [address] Nov, [facility] [address] [id number] [address] [place] [address], [place] [address] Nov, [facility] [place] [address] [id number] [address] [place] [address], [place] [address] Nov, [facility] [address] [id number] [address] [place] [address], [place] [address] Nov, [facility] [address] [id number] [address] [place] [address], [place] [address] Oct, [facility] [address] [id number] [address] [place] [address], [place] [address] Oct, [facility] [address] [id number] [address] [place] [address], [place] [address] Sep, [facility] [address] [id number] [address] [place] [address], [place] [address] Sep, [facility] [address] [id number] [address] [place] [address], [place] [address] Sep, [facility] [address] [id number] [address] [place] [address], [place] [address] Sep, [facility] [address] [id number] [address] [place] [address], [place] [address] Sep, [facility] [address] [id number] [address] [place] [address], [place] [address] Sep, [facility] [address] [id number] [address] [place] [address], [place] [address] Sep, [facility] [address] [id number] [address] [place] [address], [place] [address] Sep, [facility] [address] [id number] [address] [place] [address], [place] [address] Sep, [facility] [address] [id number] [address] [place] [address] Sep, [facility] [address] [id number] [address] [place] [address] Aug, [facility] [address] [id number] [address] [place] [address] Aug, [facility] [address] [id number] [address] [place] [address] Aug, [facility] [address] [id number] [address] [place] [address] Aug, [facility] [address] [id number] [address] [place] [address] Aug, [facility] [address] [id number] [address] [place] [address] Jul, [facility] [address] [id number] [address] [place] [address] Jul, [facility] [address] [id number] [address] [place] [address] Jul, [facility] [address] [id number] [address] [place] [address] Jul, IMMUNIZATIONS No Known Immunizations SOCIAL HISTORY Never Assessed REASON FOR VISIT PLAN OF CARE VITAL SIGNS MEDICATIONS No Known Medications RESULTS No Results PROCEDURES Procedure Date Ordered Result Body Site PSYTX PT&/FAMILY 45 MINUTES Aug 15, 2014 INSTRUCTIONS MEDICATIONS ADMINISTERED No Known Medications [...]
--- OUTSIDE RECORDS SUMMARY | 2020-03-16 11:53 | XMS REPORT ---
Author Author Swathi OCAMPO [facility] Address [address] [place] [address] Care Team Providers Care Reading Teacher Name Role Phone PAOLO OCAMPO Unavailable PROBLEMS Type Condition ICD9-CM Code [id number] Code Onset Dates Condition S tatus SNOMED Code Problem Sensorineural hearing loss of right ear H90.41 Active 25505085 Problem Obstructive sleep apnea on CPAP G47.33 Active 40644720 Problem Periodic limb movement sleep disorder G47.61 Active 024243115 Problem Iron deficiency anemia due to chronic blood loss D 50.0 Active 97400253 Problem MACHUCA (nonalcoholic steatohepatitis) K75.81 Active 275059007 Problem Vitamin B12 deficiency E53.8 Active 890903220 Problem Chronic diarrhea K52.9 Active 236 576767 Problem Vitamin D deficiency E55.9 Active 30955621 Problem BMI 50.0-59.9, adult Z68.43 Active 395126289 Problem Fatty liver K76.0 Active 85580354 7 Problem Anxiety F41.9 Active 82082953 Problem Major depressive disorder, recurrent episode, moderate F33.1 Active 289266569 Problem Chronic tension-type headache, intractable G44.221 Active 368845832 Problem Right upper quadrant pain R10.11 Acti ve 32414386 Problem Frequent falls R29.6 Active 47711 2002 Problem Crohn's disease of both small and large intestin e with complication K50.819 Active 88416615 Problem Type 2 diabetes mellitus with other specified complication E11.69 Active 986242016950 Problem Hyperlipidemia, unspecified E78.5 Ac tive 24590442 Problem Mixed stress and urge urinary incontinence N39.46 Active 325189998 Problem Sinusitis chronic, frontal J32.1 Act katlyn 14367939 Problem Seasonal allergies J30.2 Active 4 91721503 Problem Other chronic pain G89.29 Active 8 3353691 Problem Hyperlipidemia E78.5 Active 54401 004 Problem Bilateral primary osteoarthritis of knee M17.0 Active 466784013 Problem Essential hypertension I10 Active 32603440 Problem Acquired hypothyroidism E03.9 Active 438871123 Problem History of hysterectomy for benign disease Z90.710 Active 419566802 Problem Morbid (severe) obesity due to excess calories E66 .01 Active 608389816 Problem Other cirrhosis of liver K74.69 Activ e 14464258 Problem Portal hypertension K76.6 Active 46216344 ALLERGIES No Information ENCOUNTERS Encounter Location Date Diagnosis [facility] [address] [facility] [place] [address] Jun, Acute nasopharyngitis J00 [facility] [address] [facility] [id number] [address] [place] [address] May, Iron deficiency anemia due t o [...] Major depressive disorder, recurrent episode, moderate F33.1 [facility] [address] [facility] [id number] [address] [place] [address] May, Hyperlipidemia, unspecified E78.5 ; Other cirrhosis of liver K74.69 and Iron deficiency anemia due to chronic blood loss D50.0 [facility] [address] [facility] [id number] [address] [place] [phone] February, [facility] [address] [facility] [place] [address] February, Acute recurrent pansinusitis J01.41 [facility] [address] [place] [address] February, Acute maxillary sinusitis, recurrence no t specified J01.00 [facility] [address] [facility] [id number] [address] [place] [phone] Jan, Bilateral primary osteoarthr itis of knee M17.0 ; Morbid obesity E66.01 ; Viral syndrome B34.9 and Atrial dilatation, left I51.7 [facility] [address] [place] [id number] [address] [place] [phone] Jan, [facility] [address] [place] [id number] [address] [place] [phone] Dec, Trigeminy R00.8 [place] [address] [place] [id number] [place] [address] Dec, Essential hypertension I10 ; Morbid obesity E66.01 ; Low back pain M54.5 ; Other chronic pain G89.29 and Pain in right knee M25.561 [place] [address] [address] Nov, [place] [address] [address] Oct, Palpitations R00.2 [place] [address] [address] Oct, Encounter for Medicare annua l wellness [...] small and large intestine with complication K50.819 [facility] [address] [place] [id number] [address] [place] [phone] Oct, [facility] [address] [place] [id number] [address] [place] [phone] Oct, Crohn's disease of both smal l and large intestine with complication K50.819 [facility] [address] [facility] [id number] [address] [place] [phone] Jul, Sinusitis chronic, frontal J 32.1 ; Acute mucoid otitis media of both ears H65.113 ; Seasonal allergies J30.2 and BMI 50.0-59.9, adult Z68.43 [facility] [address] [address] 02 Jul, 2018 Essential hypertension I10 ; Type 2 diabetes mellitus with other specified complication E11.69 ; BMI 50.0-59.9, adult Z68.43 ; Mixed stress and urge urinary incontinence N39.46 and Mid back pain on right side M54.9 [facility] [address] [place] [id number] [address] [place] [address] 26 Jun, 2018 Iron deficiency anemia due t o chronic blood loss D50.0 ; Hyperlipidemia E78.5 ; Type 2 diabetes mellitus with other specified complication E11.69 ; Vitamin B12 deficiency E53.8 and Vitamin D deficiency E55.9 [facility] [id number] [place] [phone] 14 Jun, 2018 Cough R05 and BMI 50.0-59.9, adult Z68.43 [facility] [address] [place] [id number] [address] [place] [address] Jun, [place] [address] [place] [id number] [address] [place] [address] May, Iron deficiency anemia due t o chronic blood loss D50.0 ; Chronic diarrhea K52.9 ; Essential hypertension I10 ; Type 2 diabetes mellitus with other specified complication E11.69 ; Vitamin D deficiency E55.9 ; Colon stricture K56.699 ; Vitamin B12 deficiency E53.8 ; Hyperlipidemia E78.5 and BMI 50.0-59.9, adult Z68.43 [facility] [address] [place] [address] May, [place] [address] [place] [id number] [address] [place] [address] Apr, Nonhealing wound of heel S91 .309A and Body mass index (BMI) of 50- 59.9 in adult Z68.43 [place] [address] [place] [id number] [address] [place] [phone] Mar, [place] [address] [address] Mar, BMI 50.0-59.9, adult Z68.43 ; Flank pain R10.9 and Weight loss counseling, encounter for Z71.3 [place] [address] [address] February, [place] [address] [address] Jan, [place] [address] [address] Jan, [facility] [address] [address] Jan, Diarrhea due to staphylococc us A04.8 and Diarrhea, unspecified type R19.7 [place] [address] [place] [id number] [address] [place] [address] Jan, Acquired hypothyroidism E03. 9 ; Type 2 diabetes mellitus with other specified complication E11.69 ; Hyperlipidemia E78.5 ; Essential hypertension I10 ; Major depressive disorder, recurrent episode, moderate F33.1 and Vitamin D deficiency E55.9 [place] [address] [place] [id number] [address] [place] [address] Jan, Type 2 diabetes mellitus wit h other specified complication E11.69 ; Hyperlipidemia E78.5 ; Essential hypertension I10 ; Acquired hypothyroidism E03.9 ; Major depressive disorder, recurrent episode, moderate F33.1 ; Vitamin D deficiency E55.9 ; Sinus congestion R09.81 and BMI 50.0-59.9, adult Z68.43 [place] [address] [place] [id number] [address] [place] [phone] Dec, [place] [address] [place] [id number] [address] [place] [address] Sep, Encounter for immunization Z 23 [facility] [address] [facility] [id number] [address] [place] [phone] 05 Sep, 2017 [facility] [address] [facility] [id number] [address] [place] [address] Sep, Vitamin B12 deficiency E53.8 [facility] [address] [facility] [id number] [address] [place] [phone] Aug, [place] [address] [place] [id number] [place] [phone] Aug, BMI 60.0-69.9, adult Z68.44 and Acute non-recurrent maxillary sinusitis J01.00 [place] [address] [facility] [id number] [address] [place] [address] Aug, [place] [address] [place] [id number] [place] [address] Aug, Medicare annual wellness vis it, initial Z00.00 ; Screening for breast cancer Z12.31 ; BMI 40.0-44.9, adult Z68.41 and Acquired hypothyroidism E03.9 [place] [address] [facility] [id number] [address] [place] [phone] Jul, Actinic keratosis L57.0 [place] [address] [facility] [id number] [address] [place] [phone] Jul, Actinic keratosis L57.0 [place] [address] [facility] [id number] [address] [place] [address] Jul, Type 2 diabetes mellitus wit h other specified complication E11.69 ; Actinic keratosis L57.0 and Hypothyroidism, unspecified E03.9 [place] [address] [facility] [id number] [address] [place] [address] Jul, [place] [address] [facility] [id number] [address] [place] [phone] Jul, [place] [address] [facility] [id number] [address] [place] [phone] Jul, Vitamin B12 deficiency E53.8 [facility] [address] [facility] [id number] [address] [place] [id number] Jun, Acquired hypothyroidism E03. 9 and Chronic tension-type headache, intractable G44.221 [facility] [address] [facility] [id number] [address] [place] [address] Jun, Back muscle spasm M62.830 an d BMI 50.0-59.9, adult Z68.43 [place] [address] [facility] [id number] [address] [place] [phone] Jun, Vitamin B12 deficiency E53.8 [place] [address] [facility] [id number] [address] [place] [id number] Jun, Crohn's disease of both smal l and large intestine with complication K50.819 [place] [address] [place] [id number] [address] [place] [address] Jun, Crohn's disease of both smal l and large intestine with complication K50.819 [place] [address] [facility] [id number] [address] [place] [address] May, Hyperlipidemia E78.5 ; Anxie ty F41.9 and Essential hypertension I10 [place] [address] [facility] [id number] [address] [place] [phone] May, [place] [address] [place] [id number] [address] [place] [phone] May, Encounter for immunization Z 23 and Vitamin B12 deficiency E53.8 [facility] [address] [facility] [id number] [address] [place] [phone] May, [place] [address] [facility] [id number] [address] [place] [phone] Apr, [place] [address] [facility] [id number] [address] [place] [address] Apr, [place] [address] [place] [id number] [address] [place] [phone] Apr, Crohn's disease of both smal l and large intestine with complication K50.819 [place] [address] [id number] [address] [place] [address] Apr, Vitamin B12 deficiency E53.8 [facility] [address] [id number] [address] [place] [address] Apr, Crohn's disease of both smal l and large intestine with complication K50.819 and Acute pain of right shoulder M25.511 [place] [address] [id number] [address] [place] [address] Mar, Type 2 diabetes mellitus wit hout complication E11.9 ; Frequent falls R29.6 and Other chest pain R07.89 [place] [address] [id number] [address] [place] [phone] Mar, [place] [address] [id number] [address] [place] [phone] Mar, [place] [address] [id number] [address] [place] [address] Mar, Type 2 diabetes mellitus wit hout complication E11.9 and Blurry vision, bilateral H53.8 [place] [address] [id number] [address] [place] [address] Mar, Vitamin B12 deficiency E53.8 [place] [address] [id number] [address] [place] [phone] Mar, Crohn's disease of both smal l and large intestine with complication K50.819 [place] [address] [id number] [address] [place] [address] February, Vitamin B12 deficiency E53.8 [facility] [address] [id number] [address] [place] [address] Jan, Crohn's disease of both smal l and large intestine with complication K50.819 [place] [address] [place] [id number] [address] [place] [address] Jan, Crohn's disease of both smal l and large intestine with complication K50.819 [facility] [address] [address] Jan, Dark brown-colored urine R82 .99 and Acute suppurative otitis media of right ear without spontaneous rupture of tympanic membrane, recurrence not specified H66.001 [place] [address] [address] Jan, Encounter for immunization Z 23 [place] [address] [address] Dec, Crohn's disease of both smal l and large intestine with complication K50.819 and Eustachian tube dysfunction, right H69.81 [place] [address] [address] Dec, [place] [address] [address] Dec, Contusion of right knee, ini tial encounter S80.01XA [place] [address] [address] Dec, [place] [address] [address] Dec, Acute pain of right knee M25 .561 [place] [address] [address] Dec, Iron deficiency anemia due t o chronic blood loss D50.0 [place] [address] [address] Dec, Hyperlipidemia E78.5 ; Type 2 diabetes mellitus without complication E11.9 ; Vitamin B12 deficiency E53.8 ; Essential hypertension I10 ; Obstructive sleep apnea on CPAP G47.33 and Periodic limb movement sleep disorder G47.61 [place] [address] [place] [address] Nov, Type 2 diabetes mellitus wit hout complication E11.9 ; Vitamin B12 deficiency E53.8 ; Hyperlipidemia E78.5 ; Essential hypertension I10 ; Obstructive sleep apnea on CPAP G47.33 ; Periodic limb movement sleep disorder G47.61 ; Anxiety F41.9 ; Acquired hypothyroidism E03.9 and Chronic tension-type headache, intractable G44.221 [place] [address] [place] [address] Nov, Crohn's disease of both smal l and large intestine with complication K50.819 [place] [address] [place] [id number] [place] [address] Nov, Vitamin B12 deficiency E53.8 [place] [address] [place] [id number] [address] [place] [address] Oct, [place] [address] [address] Oct, Vitamin B12 deficiency E53.8 [place] [address] [place] [id number] [address] [place] [phone] Sep, [place] [address] [address] Sep, Vitamin B12 deficiency E53.8 [place] [address] [place] [id number] [place] [address] Aug, [place] [address] [place] [address] Aug, Vitamin B12 deficiency E53.8 [facility] [address] [place] [id number] [place] [address] Aug, [place] [address] [place] [id number] [place] [id number] 24 Jul, 2016 Elevated ALT measurement R74 .0 [place] [address] [place] [id number] [place] [address] Jul, Hematuria R31.9 ; Acute righ t-sided thoracic back pain M54.6 ; Major depressive disorder, recurrent episode, moderate F33.1 and Elevated ALT measurement R74.0 [place] [address] [facility] [id number] [address] [place] [address] Jul, [place] [address] [place] [id number] [place] [address] Jul, Elevated ALT measurement R74 .0 [place] [address] [place] [id number] [place] [phone] Jul, Iron deficiency anemia due t o chronic blood loss D50.0 [place] [address] [place] [id number] [place] [address] 14 Jul, 2016 Type 2 diabetes mellitus wit hout complication E11.9 ; Acquired hypothyroidism E03.9 ; Iron deficiency anemia due to chronic blood loss D50.0 ; Hyperlipidemia E78.5 and Essential hypertension I10 [place] [address] [place] [address] Jun, [place] [address] [facility] [id number] [address] [place] [address] Jun, Vitamin B12 deficiency E53.8 [place] [address] [place] [id number] [place] [address] 16 Jun, 2016 Type 2 diabetes mellitus wit hout complication E11.9 ; Acquired hypothyroidism E03.9 ; Iron deficiency anemia due to chronic blood loss D50.0 ; Hyperlipidemia E78.5 ; Essential hypertension I10 ; Chronic tension-type headache, intractable G44.221 ; Pulsatile tinnitus, bilateral H93.13 ; Obstructive sleep apnea on CPAP G47.33 and Major depressive disorder, recurrent episode, moderate F33.1 [place] [address] [facility] [id number] [address] [place] [address] May, Vitamin B12 deficiency E53.8 [place] [address] [place] [id number] [place] [address] May, [place] [address] [place] [id number] [address] [place] [id number] 13 Apr, 2016 Vitamin B12 deficiency E53.8 [facility] [address] [id number] [address] [place] [phone] 05 Apr, 2016 [facility] [address] [facility] [id number] [address] [place] [phone] 28 Mar, 2016 Chronic tension-type headach e, intractable G44.221 and Major depressive disorder, recurrent episode, moderate F33.1 [facility] [address] [id number] [address] [place] [phone] 14 Mar, 2016 Vitamin B12 deficiency E53.8 [facility] [address] [facility] [id number] [address] [place] [phone] February, [facility] [address] [facility] [id number] [address] [place] [phone] February, Vitamin B12 deficiency E53.8 [facility] [address] [facility] [id number] [address] [place] [phone] February, [facility] [address] [facility] [id number] [address] [place] [id number] 27 Jan, 2016 Dysuria R30.0 [facility] [address] [facility] [id number] [address] [place] [phone] 22 Jan, 2016 Type 2 diabetes mellitus wit hout complication E11.9 and Essential hypertension I10 [facility] [address] [facility] [id number] [address] [place] [address] 15 Jan, 2016 Chronic diarrhea K52.9 [facility] [address] [id number] [address] [place] [phone] Jan, [facility] [address] [facility] [id number] [address] [place] [phone] 12 Jan, 2016 Chronic diarrhea K52.9 [facility] [address] [facility] [id number] [address] [place] [phone] Jan, [facility] [address] [facility] [id number] [address] [place] [address] 12 Jan, 2016 Dysuria R30.0 [facility] [address] [facility] [id number] [address] [place] [phone] 07 Jan, 2016 Vitamin B12 deficiency E53.8 [facility] [address] [facility] [id number] [address] [place] [phone] 07 Jan, 2016 Dysuria R30.0 and Iron defic iency anemia due to chronic blood loss D50.0 [facility] [address] [facility] [id number] [address] [place] [phone] 05 Jan, 2016 Dysuria R30.0 [facility] [address] [facility] [id number] [address] [place] [phone] 04 Jan, 2016 [facility] [address] [facility] [id number] [address] [place] [phone] 15 Dec, 2015 [facility] [address] [facility] [id number] [address] [place] [phone] Dec, Iron deficiency anemia due t o chronic blood loss D50.0 [facility] [address] [facility] [id number] [address] [place] [phone] 10 Dec, 2015 Dysuria R30.0 ; Fatigue R53. 83 ; Hyperlipidemia E78.5 and Diarrhea R19.7 [facility] [address] [facility] [id number] [address] [place] [phone] Dec, [facility] [address] [facility] [id number] [address] [place] [phone] Dec, [facility] [address] [facility] [id number] [address] [place] [phone] Nov, Vitamin B12 deficiency E53.8 [facility] [address] [facility] [id number] [address] [place] [phone] Oct, Vitamin B12 deficiency E53.8 [facility] [address] [facility] [id number] [address] [place] [phone] Oct, [facility] [address] [facility] [id number] [address] [place] [phone] 09 Oct, 2015 Headache R51 [facility] [address] [facility] [id number] [address] [place] [phone] Oct, Essential hypertension I10 ; Type 2 diabetes mellitus without complication E11.9 ; Vitamin B12 deficiency E53.8 ; Acquired hypothyroidism E03.9 ; Iron deficiency anemia due to chronic blood loss D50.0 and Hyperlipidemia E78.5 [facility] [address] [facility] [id number] [address] [place] [phone] Sep, Essential hypertension I10 ; Vitamin B12 deficiency E53.8 ; Iron deficiency anemia due to chronic blood loss D50.0 ; Type 2 diabetes mellitus without complication E11.9 ; Hyperlipidemia E78.5 and Acquired hypothyroidism E03.9 [facility] [address] [place] [id number] [address] [place] [id number] Sep, [facility] [address] [id number] [address] [place] [id number] Sep, [facility] [address] [id number] [address] [place] [id number] Jul, [facility] [address] [id number] [address] [place] [id number] Jun, [facility] [address] [id number] [address] [place] [id number] Jun, [facility] [address] [id number] [address] [place] [id number] 15 Jun, 2015 Hyperlipidemia 272.4 ; Iron deficiency anemia 280.9 ; Hypothyroidism 244.9 ; Diabetes mellitus without mention of complication, type II or unspecified type, not stated as uncontrolled 250.00 and Hypertension 401.9 [facility] [address] [id number] [address] [place] [id number] Jun, [facility] [address] [id number] [address] [place] [id number] Jun, [facility] [address] [id number] [address] [place] [phone] May, Hyperlipidemia 272.4 [facility] [address] [id number] [address] [place] [phone] May, [facility] [address] [facility] [id number] [address] [place] [phone] May, [facility] [address] [facility] [id number] [address] [place] [id number] Apr, Diabetes mellitus without me ntion of complication, type II or unspecified type, not stated as uncontrolled 250.00 ; Hypothyroidism 244.9 ; Hyperlipidemia 272.4 ; Pain in joint, lower leg 719.46 and RUQ pain 789.01 [facility] [address] [id number] [address] [place] [phone] Mar, Sinusitis 473.9 [facility] [address] [facility] [id number] [address] [place] [phone] Mar, [facility] [address] [facility] [id number] [address] [place] [phone] Mar, [facility] [address] [facility] [id number] [address] [place] [phone] Mar, Hematochezia 578.1 [facility] [address] [facility] [id number] [address] [place] [phone] February, Sinusitis 473.9 [facility] [address] [facility] [id number] [address] [place] [phone] February, [facility] [address] [id number] [address] [place] [phone] Jan, [facility] [address] [facility] [id number] [address] [place] [id number] Jan, [facility] [address] [facility] [id number] [address] [place] [phone] Dec, [facility] [address] [facility] [id number] [address] [place] [phone] Dec, [facility] [address] [id number] [address] [place] [address], [place] [id number] Dec, [facility] [address] [id number] [address] [place] [address], [place] [address] Dec, [facility] [address] [id number] [address] [place] [address], [place] [address] Dec, [facility] [address] [id number] [address] [place] [address], [place] [address] Dec, [facility] [address] [id number] [address] [place] [address], [place] [address] Dec, [facility] [address] [id number] [address] [place] [address], [place] [address] Dec, [facility] [address] [id number] [address] [place] [address], [place] [address] Dec, [facility] [address] [id number] [address] [place] [address], [place] [address] Dec, [facility] [address] [id number] [address] [place] [address], [place] [address] Dec, [facility] [address] [id number] [address] [place] [address], [place] [address] Nov, [facility] [address] [id number] [address] [place] [address], [place] [address] Nov, [facility] [address] [id number] [address] [place] [phone] Nov, [facility] [address] [id number] [address] [place] [address], [place] [address] Nov, [facility] [address] [id number] [address] [place] [address], [place] [address] Oct, [facility] [address] [id number] [address] [place] [phone] Oct, [facility] [address] [id number] [address] [place] [address], [place] [address] Oct, [facility] [address] [id number] [address] [place] [address], [place] [address] Oct, [facility] [address] [id number] [address] [place] [address], [place] [address] Oct, [facility] [address] [id number] [address] [place] [address], [place] [address] Oct, [facility] [address] [id number] [address] [place] [address], [place] [address] Sep, [facility] [address] [id number] [address] [place] [address], [place] [address] Sep, [facility] [address] [id number] [address] [place] [address], [place] [address] Sep, [facility] [address] [id number] [address] [place] [address], [place] [address] Sep, [facility] [address] [id number] [address] [place] [address], [place] [address] Sep, [facility] [address] [id number] [address] [place] [address], [place] [address] Sep, [facility] [address] [id number] [address] [place] [address], [place] [address] Sep, [facility] [address] [id number] [address] [place] [address], [place] [address] Aug, [facility] [address] [id number] [address] [place] [address], [place] [id number] Aug, [facility] [address] [id number] [address] [place] [address], [place] [address] Aug, [facility] [address] [id number] [address] [place] [address], [place] [address] Aug, [facility] [address] [id number] [address] [place] [address], [place] [address] Aug, [facility] [address] [id number] [address] [place] [address], [place] [address] Aug, [facility] [address] [id number] [address] [place] [address], [place] [address] Aug, [facility] [address] [id number] [address] [place] [address], [place] [address] Aug, [facility] [address] [id number] [address] [place] [address], [place] [address] Aug, [facility] [address] [id number] [address] [place] [address], [place] [address] Aug, [facility] [address] [id number] [address] [place] [address], [place] [address] Aug, [facility] [address] [id number] [address] [place] [address], [place] [address] Aug, [facility] [address] [id number] [address] [place] [address], [place] [address] Aug, [facility] [address] [id number] [address] [place] [address], [place] [address] Aug, [facility] [address] [id number] [address] [place] [address], [place] [address] Jul, [facility] [address] [id number] [address] [place] [id number] Jul, [facility] [address] [id number] [address] [place] [phone] Jul, [facility] [address] [id number] [address] [place] [address], [place] [address] Jul, [facility] [address] [id number] [address] [place] [address], [place] [address] Jun, [facility] [address] [id number] [address] [place] [address], [place] [address] Jun, [facility] [address] [id number] [facility] [place] [address] 23 Jun, 2013 [facility] [address] [id number] [address] [place] [address], [place] [address] 23 Jun, 2013 [facility] [address] [id number] [facility] [place] [address] 19 Jun, 2013 [facility] [address] [id number] [address] [place] [address], [place] [address] 19 Jun, 2013 [facility] [address] [id number] [address] [place] [address], [place] [address] 11 Jun, 2013 [facility] [address] [id number] [address] [place] [address], [place] [address] 11 Jun, 2013 [facility] [address] [id number] [address] [place] [address], [place] [address] 11 Jun, 2013 [facility] [address] [id number] [address] [place] [address], [place] [address] 11 Jun, 2013 [facility] [address] [id number] [address] [place] [address], [place] [address] 10 Jun, 2013 [facility] [address] [id number] [address] [place] [address], [place] [address] 10 Jun, 2013 [facility] [address] [id number] [address] [place] [address], [place] [address] 09 Jun, 2013 [facility] [address] [id number] [address] [place] [address], [place] [address] 09 Jun, 2013 [facility] [address] [id number] [address] [place] [address], [place] [address] 14 May, 2014 [facility] [address] [id number] [address] [place] [address], [place] [address] 14 May, 2014 [facility] [address] [id number] [address] [place] [address], [place] [address] 13 May, 2014 [facility] [address] [id number] [address] [place] [address], [place] [address] May, [facility] [address] [id number] [address] [place] [address], [place] [address] May, [facility] [address] [id number] [address] [place] [address], [place] [address] May, [facility] [address] [id number] [address] [place] [address], [place] [address] Apr, [facility] [address] [id number] [address] [place] [address], [place] [address] Apr, [facility] [address] [id number] [address] [place] [address], [place] [address] Apr, [facility] [address] [id number] [address] [place] [address], [place] [address] Apr, [facility] [address] [id number] [address] [place] [address], [place] [address] Apr, [facility] [address] [id number] [address] [place] [address], [place] [address] Apr, [facility] [address] [id number] [address] [place] [address], [place] [address] Apr, [facility] [address] [id number] [address] [place] [address], [place] [address] Apr, [facility] [address] [id number] [address] [place] [address], [place] [address] Apr, [facility] [address] [id number] [address] [place] [address], [place] [address] Apr, [facility] [address] [id number] [address] [place] [address], [place] [address] Apr, [facility] [address] [id number] [address] [place] [address], [place] [address] Mar, [facility] [address] [id number] [address] [place] [address], [place] [address] Mar, [facility] [address] [id number] [address] [place] [address], [place] [address] Mar, [facility] [address] [id number] [address] [place] [address], [place] [address] Mar, [facility] [address] [id number] [address] [place] [address], [place] [address] February, [facility] [address] [id number] [address] [place] [address], [place] [address] February, [facility] [address] [id number] [address] [place] [address], [place] [address] Jan, [facility] [address] [id number] [address] [place] [address], [place] [address] Jan, [facility] [address] [place] [id number] Jan, [facility] [address] [id number] [address] [place] [address], [place] [address] Jan, [facility] [address] [id number] [address] [place] [address], [place] [address] Jan, [facility] [address] [id number] [address] [place] [address], [place] [address] Jan, [facility] [address] [id number] [address] [place] [address], [place] [address] Jan, [facility] [address] [id number] [address] [place] [address], [place] [address] Jan, [facility] [address] [id number] [address] [place] [address], [place] [address] Jan, [facility] [address] [id number] [address] [place] [address], [place] [address] Jan, [facility] [address] [id number] [address] [place] [address], [place] [address] Jan, [facility] [address] [id number] [address] [place] [address], [place] [address] Jan, [facility] [address] [id number] [address] [place] [address], [place] [address] 07 Jan, 2014 [facility] [address] [id number] [facility] [place] [address] Jan, [facility] [address] [id number] [facility] [place] [address] Jan, [facility] [address] [id number] [address] [place] [address], [place] [address] Jan, [facility] [address] [id number] [address] [place] [address], [place] [address] Jan, [facility] [address] [id number] [address] [place] [address], [place] [address] Dec, [facility] [address] [id number] [address] [place] [address], [place] [address] Dec, [facility] [address] [id number] [address] [place] [address], [place] [address] Dec, [facility] [address] [id number] [address] [place] [address], [place] [address] Dec, [facility] [address] [id number] [address] [place] [address], [place] [address] Dec, [facility] [address] [id number] [address] [place] [address], [place] [address] Dec, [facility] [address] [id number] [address] [place] [address], [place] [address] Dec, [facility] [address] [id number] [address] [place] [address], [place] [address] Nov, [facility] [address] [id number] [address] [place] [address], [place] [address] Nov, [facility] [address] [id number] [address] [place] [address], [place] [address] Nov, [facility] [address] [id number] [address] [place] [address], [place] [address] Nov, [facility] [address] [id number] [address] [place] [address], [place] [address] Nov, [facility] [address] [id number] [address] [place] [address], [place] [address] Nov, [facility] [address] [id number] [address] [place] [address], [place] [address] Nov, [facility] [address] [id number] [address] [place] [address], [place] [address] Oct, [facility] [address] [id number] [address] [place] [address], [place] [address] Oct, [facility] [address] [id number] [address] [place] [address], [place] [address] Sep, [facility] [address] [id number] [address] [place] [address], [place] [address] Sep, [facility] [address] [id number] [address] [place] [address], [place] [address] Sep, [facility] [address] [id number] [address] [place] [address], [place] [address] Sep, [facility] [address] [id number] [address] [place] [address], [place] [address] Sep, [facility] [address] [id number] [address] [place] [address], [place] [address] Sep, [facility] [address] [id number] [address] [place] [address], [place] [address] Sep, [facility] [address] [id number] [address] [place] [address], [place] [address] Sep, [facility] [address] [id number] [address] [place] [address], [place] [address] Sep, [facility] [address] [id number] [address] [place] [address], [place] [address] Sep, [facility] [address] [id number] [address] [place] [id number] Aug, [facility] [address] [id number] [address] [place] [id number] Aug, [facility] [address] [id number] [address] [place] [id number] Aug, [facility] [address] [id number] [address] [place] [id number] Aug, [facility] [address] [id number] [address] [place] [id number] Aug, [facility] [address] [id number] [address] [place] [id number] Jul, [facility] [address] [id number] [address] [place] [id number] Jul, [facility] [address] [id number] [address] [place] [id number] Jul, [facility] [address] [id number] [address] [place] [id number] Jul, IMMUNIZATIONS No Known Immunizations SOCIAL HISTORY Never Assessed REASON FOR VISIT PLAN OF CARE VITAL SIGNS MEDICATIONS No Known Medications RESULTS No Results PROCEDURES Procedure Date Ordered Result Body Site PSYCH DIAGNOSTIC EVALUATION Jun 28, 2014 INSTRUCTIONS MEDICATIONS ADMINISTERED No Known Medications [...]
--- OUTSIDE RECORDS SUMMARY | 2020-03-16 11:53 | XMS REPORT ---
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 Name Role Phone WIL Benavides Unavailable PROBLEMS Type Condition ICD9-CM Code PUN34-UN Code Onset Dates Condition S tatus SNOMED Code Problem Sensorineural hearing loss of right ear H90.41 Active 75975691 Problem Obstructive sleep apnea on CPAP G47.33 Active 05692457 Problem Periodic limb movement sleep disorder G47.61 Active 396015499 Problem Iron deficiency anemia due to chronic blood loss D 50.0 Active 98672474 Problem MACHUCA (nonalcoholic steatohepatitis) K75.81 Active 380844565 Problem Vitamin B12 deficiency E53.8 Active 650376927 Problem Chronic diarrhea K52.9 Active 236 736981 Problem Vitamin D deficiency E55.9 Active 23365007 Problem BMI 50.0-59.9, adult Z68.43 Active 424472150 Problem Fatty liver K76.0 Active 55103929 7 Problem Anxiety F41.9 Active 09754233 Problem Major depressive disorder, recurrent episode, moderate F33.1 Active 943580540 Problem Chronic tension-type headache, intractable G44.221 Active 663101060 Problem Right upper quadrant pain R10.11 Acti ve 15463724 Problem Frequent falls R29.6 Active 84843 2002 Problem Crohn's disease of both small and large intestin e with complication K50.819 Active 35849460 Problem Type 2 diabetes mellitus with other specified complication E11.69 Active 780730374876 Problem Hyperlipidemia, unspecified E78.5 Ac tive 99208895 Problem Mixed stress and urge urinary incontinence N39.46 Active 003250473 Problem Sinusitis chronic, frontal J32.1 Act katlyn 66613642 Problem Seasonal allergies J30.2 Active 4 02369376 Problem Other chronic pain G89.29 Active 8 5357360 Problem Hyperlipidemia E78.5 Active 32133 004 Problem Bilateral primary osteoarthritis of knee M17.0 Active 357031842 Problem Essential hypertension I10 Active 50199698 Problem Acquired hypothyroidism E03.9 Active 092449593 Problem History of hysterectomy for benign disease Z90.710 Active 242038745 Problem Morbid (severe) obesity due to excess calories E66 .01 Active 624765000 Problem Other cirrhosis of liver K74.69 Activ e 92238828 Problem Portal hypertension K76.6 Active 68537970 ALLERGIES No Information ENCOUNTERS Encounter Location Date Diagnosis [facility] IN [facility] [address] [facility] [place] [address] Jun, Acute nasopharyngitis J00 [facility] [address] [facility] [id number] [address] [place] [address] May, Iron deficiency anemia due t o [...] depressive disorder, recurrent episode, moderate F33.1 [facility] [address] [facility] [id number] [address] [place] [address] May, Hyperlipidemia, unspecified E78.5 ; Other cirrhosis of liver K74.69 and Iron deficiency anemia due to chronic blood loss D50.0 [facility] [address] [facility] [id number] [address] [place] [address] February, [facility] [address] [place] [place] [address] February, Acute recurrent pansinusitis J01.41 [facility] [address] [place] [address] February, Acute maxillary sinusitis, recurrence no t specified J01.00 [facility] [address] [facility] [id number] [address] [place] [address] Jan, Bilateral primary osteoarthr itis of knee M17.0 ; Morbid obesity E66.01 ; Viral syndrome B34.9 and Atrial dilatation, left I51.7 [place] [address] [place] [id number] [address] [place] [address] Jan, [place] [address] [place] [id number] [address] [place] [address] Dec, Trigeminy R00.8 [place] [address] [place] [id number] [address] [place] [address] Dec, Essential hypertension I10 ; Morbid obesity E66.01 ; Low back pain M54.5 ; Other chronic pain G89.29 and Pain in right knee M25.561 [place] [address] [address] Nov, [place] [address] [address] Oct, Palpitations R00.2 [place] [address] [place] [id number] [address] [place] [address] Oct, Encounter for Medicare annua l wellness [...] and large intestine with complication K50.819 [facility] [address] [place] [id number] [address] [place] [address] Oct, [place] [address] [place] [id number] [address] [place] [address] Oct, Crohn's disease of both smal l and large intestine with complication K50.819 [facility] [address] [place] [id number] [address] [place] [address] Jul, Sinusitis chronic, frontal J 32.1 ; Acute mucoid otitis media of both ears H65.113 ; Seasonal allergies J30.2 and BMI 50.0-59.9, adult Z68.43 [facility] [address] [address] Jul, Essential hypertension I10 ; Type 2 diabetes mellitus with other specified complication E11.69 ; BMI 50.0-59.9, adult Z68.43 ; Mixed stress and urge urinary incontinence N39.46 and Mid back pain on right side M54.9 [facility] [address] [place] [address] Jun, Iron deficiency anemia due t o chronic blood loss D50.0 ; Hyperlipidemia E78.5 ; Type 2 diabetes mellitus with other specified complication E11.69 ; Vitamin B12 deficiency E53.8 and Vitamin D deficiency E55.9 [facility] [address] [place] [id number] [address] [place] [address] Jun, Cough R05 and BMI 50.0-59.9, adult Z68.43 [facility] [address] [place] [id number] [address] [place] [address] Jun, [place] [address] [place] [id number] [address] [place] [address] May, Iron deficiency anemia due t o chronic blood loss D50.0 ; Chronic diarrhea K52.9 ; Essential hypertension I10 ; Type 2 diabetes mellitus with other specified complication E11.69 ; Vitamin D deficiency E55.9 ; Colon stricture K56.699 ; Vitamin B12 deficiency E53.8 ; Hyperlipidemia E78.5 and BMI 50.0-59.9, adult Z68.43 [facility] [address] [address] May, [place] [address] [address] Apr, Nonhealing wound of heel S91 .309A and Body mass index (BMI) of 50- 59.9 in adult Z68.43 [place] [address] [place] [id number] [address] [place] [address] Mar, [facility] [address] [address] Mar, BMI 50.0-59.9, adult Z68.43 ; Flank pain R10.9 and Weight loss counseling, encounter for Z71.3 [place] [address] [address] February, [place] [address] [address] Jan, [place] [address] [address] Jan, [facility] [address] [place] [id number] [address] [place] [address] Jan, Diarrhea due to staphylococc us A04.8 and Diarrhea, unspecified type R19.7 [place] [address] [place] [id number] [address] [place] [address] Jan, Acquired hypothyroidism E03. 9 ; Type 2 diabetes mellitus with other specified complication E11.69 ; Hyperlipidemia E78.5 ; Essential hypertension I10 ; Major depressive disorder, recurrent episode, moderate F33.1 and Vitamin D deficiency E55.9 [place] [address] [place] [id number] [address] [place] [address] Jan, Type 2 diabetes mellitus wit h other specified complication E11.69 ; Hyperlipidemia E78.5 ; Essential hypertension I10 ; Acquired hypothyroidism E03.9 ; Major depressive disorder, recurrent episode, moderate F33.1 ; Vitamin D deficiency E55.9 ; Sinus congestion R09.81 and BMI 50.0-59.9, adult Z68.43 [place] [address] [place] [id number] [address] [place] [address] Dec, [place] [address] [place] [id number] [address] [place] [address] Sep, Encounter for immunization Z 23 [facility] [address] [facility] [id number] [address] [place] [address] 05 Sep, 2017 [facility] [address] [facility] [id number] [address] [place] [address] Sep, Vitamin B12 deficiency E53.8 [facility] [address] [place] [id number] [address] [place] [address] Aug, [facility] [address] [place] [id number] [place] [address] Aug, BMI 60.0-69.9, adult Z68.44 and Acute non-recurrent maxillary sinusitis J01.00 [place] [address] [facility] [id number] [place] [address] 14 Aug, 2017 [place] [address] [place] [id number] [place] [address] Aug, Medicare annual wellness vis it, initial Z00.00 ; Screening for breast cancer Z12.31 ; BMI 40.0-44.9, adult Z68.41 and Acquired hypothyroidism E03.9 [place] [address] [place] [id number] [address] [place] [address] Jul, Actinic keratosis L57.0 [place] [address] [place] [id number] [address] [place] [address] Jul, Actinic keratosis L57.0 [place] [address] [place] [id number] [address] [place] [address] Jul, Type 2 diabetes mellitus wit h other specified complication E11.69 ; Actinic keratosis L57.0 and Hypothyroidism, unspecified E03.9 [facility] [address] [facility] [id number] [address] [place] [address] Jul, [facility] [address] [facility] [id number] [address] [place] [address] Jul, [facility] [address] [place] [id number] [address] [place] [address] Jul, Vitamin B12 deficiency E53.8 [facility] [address] [facility] [id number] [address] [place] [address] Jun, Acquired hypothyroidism E03. 9 and Chronic tension-type headache, intractable G44.221 [facility] [address] [facility] [id number] [address] [place] [address] Jun, Back muscle spasm M62.830 an d BMI 50.0-59.9, adult Z68.43 [facility] [address] [facility] [id number] [address] [place] [address] Jun, Vitamin B12 deficiency E53.8 [place] [address] [facility] [id number] [address] [place] [address] Jun, Crohn's disease of both smal l and large intestine with complication K50.819 [place] [address] [place] [id number] [address] [place] [address] Jun, Crohn's disease of both smal l and large intestine with complication K50.819 [place] [address] [facility] [id number] [address] [place] [address] May, Hyperlipidemia E78.5 ; Anxie ty F41.9 and Essential hypertension I10 [place] [address] [place] [id number] [address] [place] [address] May, [place] [address] [place] [id number] [address] [place] [address] May, Encounter for immunization Z 23 and Vitamin B12 deficiency E53.8 [facility] [address] [facility] [id number] [address] [place] [address] May, [place] [address] [facility] [id number] [address] [place] [address] Apr, [facility] [address] [place] [id number] [address] [place] [address] Apr, [place] [address] [place] [id number] [address] [place] [address] Apr, Crohn's disease of both smal l and large intestine with complication K50.819 [facility] [address] [id number] [address] [place] [address] Apr, Vitamin B12 deficiency E53.8 [facility] [address] [facility] [id number] [address] [place] [address] Apr, Crohn's disease of both smal l and large intestine with complication K50.819 and Acute pain of right shoulder M25.511 [place] [address] [facility] [id number] [address] [place] [address] Mar, Type 2 diabetes mellitus wit hout complication E11.9 ; Frequent falls R29.6 and Other chest pain R07.89 [place] [address] [facility] [id number] [address] [place] [address] Mar, [place] [address] [facility] [id number] [address] [place] [address] Mar, [place] [address] [facility] [id number] [address] [place] [address] Mar, Type 2 diabetes mellitus wit hout complication E11.9 and Blurry vision, bilateral H53.8 [place] [address] [facility] [id number] [address] [place] [address] Mar, Vitamin B12 deficiency E53.8 [place] [address] [facility] [id number] [address] [place] [address] Mar, Crohn's disease of both smal l and large intestine with complication K50.819 [place] [address] [facility] [id number] [address] [place] [address] February, Vitamin B12 deficiency E53.8 [place] [address] [facility] [id number] [address] [place] [address] Jan, Crohn's disease of both smal l and large intestine with complication K50.819 [place] [id number] [place] [address] Jan, Crohn's disease of both smal l and large intestine with complication K50.819 [facility] [address] [place] [id number] [address] [place] [address] Jan, Dark brown-colored urine R82 .99 and Acute suppurative otitis media of right ear without spontaneous rupture of tympanic membrane, recurrence not specified H66.001 [place] [address] [address] Jan, Encounter for immunization Z 23 [place] [address] [address] Dec, Crohn's disease of both smal l and large intestine with complication K50.819 and Eustachian tube dysfunction, right H69.81 [place] [address] [address] Dec, [place] [address] [address] Dec, Contusion of right knee, ini tial encounter S80.01XA [place] [address] [address] Dec, [place] [address] [address] Dec, Acute pain of right knee M25 .561 [place] [address] [address] Dec, Iron deficiency anemia due t o chronic blood loss D50.0 [place] [address] [address] Dec, Hyperlipidemia E78.5 ; Type 2 diabetes mellitus without complication E11.9 ; Vitamin B12 deficiency E53.8 ; Essential hypertension I10 ; Obstructive sleep apnea on CPAP G47.33 and Periodic limb movement sleep disorder G47.61 [place] [address] [place] [id number] [place] [address] Nov, Type 2 diabetes mellitus wit hout complication E11.9 ; Vitamin B12 deficiency E53.8 ; Hyperlipidemia E78.5 ; Essential hypertension I10 ; Obstructive sleep apnea on CPAP G47.33 ; Periodic limb movement sleep disorder G47.61 ; Anxiety F41.9 ; Acquired hypothyroidism E03.9 and Chronic tension-type headache, intractable G44.221 [place] [address] [address] Nov, Crohn's disease of both smal l and large intestine with complication K50.819 [place] [address] [address] Nov, Vitamin B12 deficiency E53.8 [place] [address] [address] Oct, [place] [address] [address] Oct, Vitamin B12 deficiency E53.8 [place] [address] [place] [id number] [address] [place] [address] Sep, [place] [address] [address] Sep, Vitamin B12 deficiency E53.8 [place] [address] [place] [id number] [address] [place] [address] Aug, [place] [address] [address] 14 Aug, 2016 Vitamin B12 deficiency E53.8 [place] [address] [place] [id number] [address] [place] [address] Aug, [place] [address] [address] 24 Jul, 2016 Elevated ALT measurement R74 .0 [place] [address] [place] [id number] [address] [place] [address] Jul, Hematuria R31.9 ; Acute righ t-sided thoracic back pain M54.6 ; Major depressive disorder, recurrent episode, moderate F33.1 and Elevated ALT measurement R74.0 [place] [address] [facility] [id number] [address] [place] [address] Jul, [place] [address] [place] [id number] [place] [address] Jul, Elevated ALT measurement R74 .0 [place] [address] [place] [address] Jul, Iron deficiency anemia due t o chronic blood loss D50.0 [place] [address] [place] [id number] [address] [place] [address] Jul, Type 2 diabetes mellitus wit hout complication E11.9 ; Acquired hypothyroidism E03.9 ; Iron deficiency anemia due to chronic blood loss D50.0 ; Hyperlipidemia E78.5 and Essential hypertension I10 [place] [address] [place] [id number] [address] [place] [address] Jun, [place] [address] [place] [address] Jun, Vitamin B12 deficiency E53.8 [place] [address] [address] 16 Jun, 2016 Type 2 diabetes mellitus wit hout complication E11.9 ; Acquired hypothyroidism E03.9 ; Iron deficiency anemia due to chronic blood loss D50.0 ; Hyperlipidemia E78.5 ; Essential hypertension I10 ; Chronic tension-type headache, intractable G44.221 ; Pulsatile tinnitus, bilateral H93.13 ; Obstructive sleep apnea on CPAP G47.33 and Major depressive disorder, recurrent episode, moderate F33.1 [place] [address] [place] [id number] [address] [place] [address] May, Vitamin B12 deficiency E53.8 [place] [address] [place] [id number] [address] [place] [address] May, [place] [address] [id number] [address] [place] [address] 13 Apr, 2016 Vitamin B12 deficiency E53.8 [facility] [address] [id number] [address] [place] [address] 05 Apr, 2016 [facility] [address] [facility] [id number] [address] [place] [address] 28 Mar, 2016 Chronic tension-type headach e, intractable G44.221 and Major depressive disorder, recurrent episode, moderate F33.1 [facility] [address] [id number] [address] [place] [address] 14 Mar, 2016 Vitamin B12 deficiency E53.8 [facility] [address] [id number] [address] [place] [address] February, [facility] [address] [facility] [id number] [address] [place] [address] February, Vitamin B12 deficiency E53.8 [facility] [address] [facility] [id number] [address] [place] [address] February, [facility] [address] [id number] [address] [place] [address] 27 Jan, 2016 Dysuria R30.0 [facility] [address] [facility] [id number] [address] [place] [address] 22 Jan, 2016 Type 2 diabetes mellitus wit hout complication E11.9 and Essential hypertension I10 [facility] [address] [facility] [id number] [address] [place] [address] 15 Jan, 2016 Chronic diarrhea K52.9 [facility] [address] [id number] [address] [place] [address] Jan, [facility] [address] [facility] [id number] [address] [place] [address] Jan, Chronic diarrhea K52.9 [facility] [address] [facility] [id number] [address] [place] [address] Jan, [facility] [address] [facility] [id number] [address] [place] [address] 12 Jan, 2016 Dysuria R30.0 [facility] [address] [facility] [id number] [address] [place] [address] 07 Jan, 2016 Vitamin B12 deficiency E53.8 [facility] [address] [facility] [id number] [address] [place] [address] 07 Jan, 2016 Dysuria R30.0 and Iron defic iency anemia due to chronic blood loss D50.0 [facility] [address] [facility] [id number] [address] [place] [address] 05 Jan, 2016 Dysuria R30.0 [facility] [address] [place] [id number] [address] [place] [address] 04 Jan, 2016 [facility] [address] [place] [id number] [address] [place] [address] 15 Dec, 2015 [place] [address] [place] [id number] [place] [address] Dec, Iron deficiency anemia due t o chronic blood loss D50.0 [facility] [address] [facility] [id number] [address] [place] [address] 10 Dec, 2015 Dysuria R30.0 ; Fatigue R53. 83 ; Hyperlipidemia E78.5 and Diarrhea R19.7 [place] [address] [place] [address] Dec, [facility] [address] [place] [id number] [address] [place] [address] Dec, [facility] [address] [place] [id number] [address] [place] [address] Nov, Vitamin B12 deficiency E53.8 [facility] [address] [place] [id number] [address] [place] [address] Oct, Vitamin B12 deficiency E53.8 [facility] [address] [place] [id number] [address] [place] [address] Oct, [facility] [address] [facility] [id number] [address] [place] [address] 09 Oct, 2015 Headache R51 [facility] [address] [facility] [id number] [id number] Oct, Essential hypertension I10 ; Type 2 diabetes mellitus without complication E11.9 ; Vitamin B12 deficiency E53.8 ; Acquired hypothyroidism E03.9 ; Iron deficiency anemia due to chronic blood loss D50.0 and Hyperlipidemia E78.5 [facility] [address] [facility] [id number] [address] [place] [id number] 17 Sep, 2015 Essential hypertension I10 ; Vitamin B12 deficiency E53.8 ; Iron deficiency anemia due to chronic blood loss D50.0 ; Type 2 diabetes mellitus without complication E11.9 ; Hyperlipidemia E78.5 and Acquired hypothyroidism E03.9 [facility] [address] [place] [id number] [address] [place] [id number] Sep, [facility] [address] [id number] Sep, [facility] [address] [address] [address] Jul, [facility] [address] [id number] [address] [place] [address] Jun, [facility] [address] [id number] [address] [place] [address] Jun, [facility] [address] [address] 15 Jun, 2015 Hyperlipidemia 272.4 ; Iron deficiency anemia 280.9 ; Hypothyroidism 244.9 ; Diabetes mellitus without mention of complication, type II or unspecified type, not stated as uncontrolled 250.00 and Hypertension 401.9 [facility] [address] [id number] [address] [place] [address] Jun, [facility] [address] [id number] [address] [place] [address] Jun, [facility] [address] [id number] [address] [place] [address] May, Hyperlipidemia 272.4 [facility] [address] [id number] [address] [place] [address] May, [facility] [address] [id number] [address] [place] [address] May, [facility] [address] [id number] [address] [place] [address] Apr, Diabetes mellitus without me ntion of complication, type II or unspecified type, not stated as uncontrolled 250.00 ; Hypothyroidism 244.9 ; Hyperlipidemia 272.4 ; Pain in joint, lower leg 719.46 and RUQ pain 789.01 [facility] [address] [id number] [address] [place] [address] Mar, Sinusitis 473.9 [facility] [address] [id number] [address] [place] [address] Mar, [facility] [address] [id number] [address] [place] [address] Mar, [facility] [address] [id number] [address] [place] [address] Mar, Hematochezia 578.1 [facility] [address] [facility] [id number] [address] [place] [address] February, Sinusitis 473.9 [facility] [address] [id number] [address] [place] [address] February, [facility] [address] [id number] [address] [place] [address] Jan, [facility] [address] [id number] [address] [place] [address] Jan, [facility] [address] [facility] [id number] [address] [place] [address] Dec, [facility] [address] [id number] [address] [place] [address], [place] [address] 24 Dec, 2014 [facility] [address] [id number] [address] [place] [address], [place] [address] Dec, [facility] [address] [id number] [address] [place] [address], [place] [address] Dec, [facility] [address] [id number] [address] [place] [address], [place] [address] Dec, [facility] [address] [id number] [address] [place] [address], [place] [address] Dec, [facility] [address] [id number] [address] [place] [address], [place] [address] Dec, [facility] [address] [id number] [address] [place] [address], [place] [address] Dec, [facility] [address] [id number] [address] [place] [address], [place] [address] Dec, [facility] [address] [id number] [address] [place] [address], [place] [address] Dec, [facility] [address] [id number] [address] [place] [address], [place] [address] Dec, [facility] [address] [id number] [address] [place] [address], [place] [address] Nov, [facility] [address] [id number] [address] [place] [address], [place] [address] Nov, [facility] [address] [id number] [address] [place] [address], [place] [address] Nov, [facility] [address] [id number] [address] [place] [address], [place] [address] Nov, [facility] [address] [id number] [address] [place] [address], [place] [address] Oct, [facility] [address] [id number] [address] [place] [address], [place] [address] Oct, [facility] [address] [id number] [address] [place] [address], [place] [address] Oct, [facility] [address] [id number] [address] [place] [address], [place] [address] Oct, [facility] [address] [id number] [address] [place] [address], [place] [address] Oct, [facility] [address] [id number] [address] [place] [address], [place] [address] Oct, [facility] [address] [id number] [address] [place] [address], [place] [address] Sep, [facility] [address] [id number] [address] [place] [address], [place] [address] Sep, [facility] [address] [id number] [address] [place] [address], [place] [address] Sep, [facility] [address] [id number] [address] [place] [address], [place] [address] Sep, [facility] [address] [id number] [address] [place] [address], [place] [address] Sep, [facility] [address] [id number] [address] [place] [address], [place] [address] Sep, [facility] [address] [id number] [address] [place] [address], [place] [address] Sep, [facility] [address] [id number] [address] [place] [address], [place] [address] Aug, [facility] [address] [id number] [address] [place] [address], [place] [address] Aug, [facility] [address] [id number] [address] [place] [address], [place] [address] Aug, [facility] [address] [id number] [address] [place] [address], [place] [address] Aug, [facility] [address] [id number] [address] [place] [address] Aug, [facility] [address] [id number] [address] [place] [address], [place] [address] Aug, [facility] [address] [id number] [address] [place] [address] Aug, [facility] [address] [id number] [address] [place] [address], [place] [address] Aug, [facility] [address] [id number] [address] [place] [address] Aug, [facility] [address] [id number] [address] [place] [address], [place] [address] Aug, [facility] [address] [id number] [address] [place] [address], [place] [address] Aug, [facility] [address] [id number] [address] [place] [address], [place] [address] Aug, [facility] [address] [id number] [address] [place] [address], [place] [address] Aug, [facility] [address] [id number] [address] [place] [address], [place] [address] Aug, [facility] [address] [id number] [address] [place] [address] Jul, [facility] [address] [id number] [address] [place] [address] Jul, [facility] [address] [id number] [address] [place] [address] Jul, [facility] [address] [id number] [address] [place] [address] Jul, [facility] [address] [id number] [address] [place] [address] Jun, [facility] [address] [id number] [address] [place] [address], [place] [address] Jun, [facility] [address] [id number] [address] [place] [address] 23 Sep, 2013 [facility] [address] [id number] [address] [place] [address] 23 Jun, 2013 [facility] [address] [id number] [address] [place] [address] 19 Jun, 2013 [facility] [address] [id number] [address] [place] [address], [place] [address] 19 Jun, 2013 [facility] [address] [id number] [address] [place] [address] 11 Jun, 2013 [facility] [address] [id number] [address] [place] [address], [place] [address] 11 Jun, 2013 [facility] [address] [id number] [address] [place] [address], [place] [address] 11 Jun, 2013 [facility] [address] [id number] [address] [place] [address], [place] [address] 11 Jun, 2013 [facility] [address] [id number] [address] [place] [address], [place] [address] 10 Jun, 2013 [facility] [address] [id number] [address] [place] [address], [place] [address] 10 Jun, 2013 [facility] [address] [id number] [address] [place] [address], [place] [address] 09 Jun, 2013 [facility] [address] [id number] [address] [place] [address], [place] [address] 09 Jun, 2013 [facility] [address] [id number] [address] [place] [address], [place] [address] 14 May, 2014 [facility] [address] [id number] [address] [place] [address], [place] [address] 14 May, 2014 [facility] [address] [id number] [address] [place] [address], [place] [address] 13 May, 2014 [facility] [address] [id number] [address] [place] [address], [place] [address] May, [facility] [address] [id number] [address] [place] [address] May, [facility] [address] [id number] [address] [place] [address], [place] [address] May, [facility] [address] [id number] [address] [place] [address] Apr, [facility] [address] [id number] [address] [place] [address], [place] [address] Apr, [facility] [address] [id number] [address] [place] [address], [place] [address] Apr, [facility] [address] [id number] [address] [place] [address], [place] [address] Apr, [facility] [address] [id number] [address] [place] [address], [place] [address] Apr, [facility] [address] [id number] [address] [place] [address], [place] [address] Apr, [facility] [address] [id number] [address] [place] [address], [place] [address] Apr, [facility] [address] [id number] [address] [place] [address], [place] [address] Apr, [facility] [address] [id number] [address] [place] [address], [place] [address] Apr, [facility] [address] [id number] [address] [place] [address], [place] [address] Apr, [facility] [address] [id number] [address] [place] [address], [place] [address] Apr, [facility] [address] [id number] [address] [place] [address], [place] [address] Mar, [facility] [address] [id number] [address] [place] [address], [place] [address] Mar, [facility] [address] [id number] [address] [place] [address], [place] [address] Mar, [facility] [address] [id number] [address] [place] [address], [place] [address] Mar, [facility] [address] [id number] [address] [place] [address], [place] [address] February, [facility] [address] [id number] [address] [place] [address], [place] [address] February, [facility] [address] [id number] [address] [place] [address], [place] [address] Jan, [facility] [address] [id number] [address] [place] [address], [place] [address] Jan, [facility] [address] [place] [id number] Jan, [facility] [address] [id number] [address] [place] [address], [place] [address] Jan, [facility] [address] [id number] [address] [place] [address], [place] [address] Jan, [facility] [address] [id number] [address] [place] [address], [place] [address] Jan, [facility] [address] [id number] [address] [place] [address], [place] [address] Jan, [facility] [address] [id number] [address] [place] [address], [place] [address] Jan, [facility] [address] [id number] [address] [place] [address], [place] [address] Jan, [facility] [address] [id number] [address] [place] [address], [place] [address] Jan, [facility] [address] [id number] [address] [place] [address], [place] [address] Jan, [facility] [address] [id number] [address] [place] [address], [place] [address] Jan, [facility] [address] [id number] [address] [place] [address] 07 Jan, 2014 [facility] [address] [id number] [address] [place] [address], [place] [address] Jan, [facility] [address] [id number] [address] [place] [address] Jan, [facility] [address] [id number] [address] [place] [address], [place] [address] Jan, [facility] [address] [id number] [address] [place] [address], [place] [address] Jan, [facility] [address] [id number] [address] [place] [address], [place] [address] Dec, [facility] [address] [id number] [address] [place] [address], [place] [address] Dec, [facility] [address] [id number] [address] [place] [address], [place] [address] Dec, [facility] [address] [id number] [address] [place] [address], [place] [address] Dec, [facility] [address] [id number] [address] [place] [address], [place] [address] Dec, [facility] [address] [id number] [address] [place] [address], [place] [address] 05 Dec, 2013 [facility] [address] [id number] [address] [place] [address], [place] [address] Dec, [facility] [address] [id number] [address] [place] [address], [place] [address] Nov, [facility] [address] [id number] [address] [place] [address], [place] [address] Nov, [facility] [address] [id number] [address] [place] [address], [place] [address] Nov, [facility] [address] [id number] [address] [place] [address], [place] [address] Nov, [facility] [address] [id number] [address] [place] [address] Nov, [facility] [address] [id number] [address] [place] [address], [place] [address] Nov, [facility] [address] [id number] [address] [place] [address], [place] [address] Nov, [facility] [address] [id number] [address] [place] [address], [place] [address] Oct, [facility] [address] [id number] [address] [place] [address], [place] [address] Oct, [facility] [address] [id number] [address] [place] [address], [place] [address] Sep, [facility] [address] [id number] [address] [place] [address], [place] [address] Sep, [facility] [address] [id number] [address] [place] [address], [place] [address] Sep, [facility] [address] [id number] [address] [place] [address], [place] [address] Sep, [facility] [address] [id number] [address] [place] [address], [place] [address] Sep, [facility] [address] [id number] [address] [place] [address], [place] [address] Sep, [facility] [address] [id number] [address] [place] [address], [place] [address] Sep, [facility] [address] [id number] [address] [place] [address], [place] [address] Sep, [facility] [address] [id number] [address] [place] [address], [place] [address] Sep, [facility] [address] [id number] [address] [place] [address], [place] [address] Sep, [facility] [address] [id number] [address] [place] [address] Aug, [facility] [address] [id number] [address] [place] [address] Aug, [facility] [address] [id number] [address] [place] [address] Aug, [facility] [address] [id number] [address] [place] [address] Aug, [facility] [address] [id number] [address] [place] [address] Aug, [facility] [address] [id number] [address] [place] [address] Jul, [facility] [address] [id number] [address] [place] [address] Jul, [facility] [address] [id number] [address] [place] [address] Jul, [facility] [address] [id number] [address] [place] [address] Jul, IMMUNIZATIONS No Known Immunizations SOCIAL HISTORY [...]
--- OUTSIDE RECORDS SUMMARY | 2020-03-16 11:54 | XMS REPORT ---
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 Name Role Phone WIL Benavides Unavailable PROBLEMS Type Condition ICD9-CM Code OWB48-VB Code Onset Dates Condition S tatus SNOMED Code Problem Sensorineural hearing loss of right ear H90.41 Active 75585514 Problem Obstructive sleep apnea on CPAP G47.33 Active 11265877 Problem Periodic limb movement sleep disorder G47.61 Active 398086524 Problem Iron deficiency anemia due to chronic blood loss D 50.0 Active 63453629 Problem MACHUCA (nonalcoholic steatohepatitis) K75.81 Active 985258254 Problem Vitamin B12 deficiency E53.8 Active 622165084 Problem Chronic diarrhea K52.9 Active 236 444038 Problem Vitamin D deficiency E55.9 Active 69101244 Problem BMI 50.0-59.9, adult Z68.43 Active 884804433 Problem Fatty liver K76.0 Active 80492372 7 Problem Anxiety F41.9 Active 10630522 Problem Major depressive disorder, recurrent episode, moderate F33.1 Active 892313778 Problem Chronic tension-type headache, intractable G44.221 Active 270055734 Problem Right upper quadrant pain R10.11 Acti ve 79445701 Problem Frequent falls R29.6 Active 27166 2002 Problem Crohn's disease of both small and large intestin e with complication K50.819 Active 04912310 Problem Type 2 diabetes mellitus with other specified complication E11.69 Active 224207509193 Problem Hyperlipidemia, unspecified E78.5 Ac tive 66914124 Problem Mixed stress and urge urinary incontinence N39.46 Active 179263328 Problem Sinusitis chronic, frontal J32.1 Act katlyn 99926135 Problem Seasonal allergies J30.2 Active 4 19130056 Problem Other chronic pain G89.29 Active 8 4083129 Problem Hyperlipidemia E78.5 Active 48342 004 Problem Bilateral primary osteoarthritis of knee M17.0 Active 468504459 Problem Essential hypertension I10 Active 65041175 Problem Acquired hypothyroidism E03.9 Active 926562633 Problem History of hysterectomy for benign disease Z90.710 Active 794795974 Problem Morbid (severe) obesity due to excess calories E66 .01 Active 771163874 Problem Other cirrhosis of liver K74.69 Activ e 75579451 Problem Portal hypertension K76.6 Active 30095309 ALLERGIES No Information ENCOUNTERS Encounter Location Date Diagnosis [place] [address] [place] [id number] [place] [address] May, Iron deficiency anemia due t o [...] Major depressive disorder, recurrent episode, moderate F33.1 [place] [address] [place] [id number] [place] [address] May, Hyperlipidemia, unspecified E78.5 ; Other cirrhosis of liver K74.69 and Iron deficiency anemia due to chronic blood loss D50.0 [place] [address] [place] [id number] [place] [address] February, [facility] [address] [facility] [place] [address] February, Acute recurrent pansinusitis J01.41 [facility] [address] [place] [address] February, Acute maxillary sinusitis, recurrence no t specified J01.00 [place] [address] [place] [id number] [place] [address] Jan, Bilateral primary osteoarthr itis of knee M17.0 ; Morbid obesity E66.01 ; Viral syndrome B34.9 and Atrial dilatation, left I51.7 [place] [address] [place] [id number] [place] [address] Jan, [facility] [address] [facility] [id number] [address] [place] [address] Dec, Trigeminy R00.8 [place] [address] [place] [id number] [place] [address] Dec, Essential hypertension I10 ; Morbid obesity E66.01 ; Low back pain M54.5 ; Other chronic pain G89.29 and Pain in right knee M25.561 [facility] [address] [place] [id number] [place] [address] Nov, [place] [address] [address] Oct, Palpitations R00.2 [place] [address] [place] [id number] [address] [place] [address] Oct, Encounter for Medicare annua l wellness [...] small and large intestine with complication K50.819 [facility] [address] [facility] [id number] [address] [place] [address] Oct, [facility] [address] [place] [id number] [address] [place] [address] Oct, Crohn's disease of both smal l and large intestine with complication K50.[address] [facility] [address] [facility] [id number] [address] [place] [address] Jul, Sinusitis chronic, frontal J 32.1 ; Acute mucoid otitis media of both ears H65.113 ; Seasonal allergies J30.2 and BMI 50.0-59.9, adult Z68.43 [facility] [address] [place] [id number] [place] [address] Jul, Essential hypertension I10 ; Type 2 diabetes mellitus with other specified complication E11.69 ; BMI 50.0-59.9, adult Z68.43 ; Mixed stress and urge urinary incontinence N39.46 and Mid back pain on right side M54.9 [facility] [address] [place] [id number] [place] [address] Jun, Iron deficiency anemia due t o chronic blood loss D50.0 ; Hyperlipidemia E78.5 ; Type 2 diabetes mellitus with other specified complication E11.69 ; Vitamin B12 deficiency E53.8 and Vitamin D deficiency E55.9 [facility] [address] [place] [id number] [place] [address] Jun, Cough R05 and BMI 50.0-59.9, adult Z68.43 [place] [address] [place] [address] Jun, [place] [address] [place] [id number] [address] [place] [address] May, Iron deficiency anemia due t o chronic blood loss D50.0 ; Chronic diarrhea K52.9 ; Essential hypertension I10 ; Type 2 diabetes mellitus with other specified complication E11.69 ; Vitamin D deficiency E55.9 ; Colon stricture K56.699 ; Vitamin B12 deficiency E53.8 ; Hyperlipidemia E78.5 and BMI 50.0-59.9, adult Z68.43 [facility] [address] [place] [id number] [place] [address] May, [place] [address] [place] [id number] [place] [address] Apr, Nonhealing wound of heel S91 .309A and Body mass index (BMI) of 50- 59.9 in adult Z68.43 [place] [address] [place] [id number] [address] [place] [address] Mar, [place] [address] [place] [id number] [place] [address] Mar, BMI 50.0-59.9, adult Z68.43 ; Flank pain R10.9 and Weight loss counseling, encounter for Z71.3 [place] [address] [address] February, [place] [address] [address] Jan, [place] [address] [address] Jan, [facility] [address] [address] Jan, Diarrhea due to staphylococc us A04.8 and Diarrhea, unspecified type R19.7 [place] [address] [address] Jan, Acquired hypothyroidism E03. 9 ; Type 2 diabetes mellitus with other specified complication E11.69 ; Hyperlipidemia E78.5 ; Essential hypertension I10 ; Major depressive disorder, recurrent episode, moderate F33.1 and Vitamin D deficiency E55.9 [place] [address] [place] [id number] [place] [address] Jan, Type 2 diabetes mellitus wit h other specified complication E11.69 ; Hyperlipidemia E78.5 ; Essential hypertension I10 ; Acquired hypothyroidism E03.9 ; Major depressive disorder, recurrent episode, moderate F33.1 ; Vitamin D deficiency E55.9 ; Sinus congestion R09.81 and BMI 50.0-59.9, adult Z68.43 [place] [address] [place] [id number] [place] [address] Dec, [place] [address] [address] Sep, Encounter for immunization Z 23 [place] [address] [address] Sep, [facility] [address] [facility] [id number] [address] [place] [address] Sep, Vitamin B12 deficiency E53.8 [facility] [address] [facility] [id number] [address] [place] [address] Aug, [place] [address] [facility] [id number] [address] [place] [address] Aug, BMI 60.0-69.9, adult Z68.44 and Acute non-recurrent maxillary sinusitis J01.00 [facility] [address] [facility] [id number] [address] [place] [address] Aug, [place] [address] [place] [id number] [place] [address] Aug, Medicare annual wellness vis it, initial Z00.00 ; Screening for breast cancer Z12.31 ; BMI 40.0-44.9, adult Z68.41 and Acquired hypothyroidism E03.9 [place] [address] [facility] [id number] [address] [place] [address] Jul, Actinic keratosis L57.0 [place] [address] [facility] [id number] [address] [place] [address] Jul, Actinic keratosis L57.0 [place] [address] [facility] [id number] [address] [place] [address] Jul, Type 2 diabetes mellitus wit h other specified complication E11.69 ; Actinic keratosis L57.0 and Hypothyroidism, unspecified E03.9 [place] [address] [facility] [id number] [address] [place] [address] Jul, [place] [address] [facility] [id number] [address] [place] [address] Jul, [place] [address] [facility] [id number] [address] [place] [address] Jul, Vitamin B12 deficiency E53.8 [place] [address] [facility] [id number] [address] [place] [address] Jun, Acquired hypothyroidism E03. 9 and Chronic tension-type headache, intractable G44.221 [facility] [address] [facility] [id number] [address] [place] [address] Jun, Back muscle spasm M62.830 an d BMI 50.0-59.9, adult Z68.43 [facility] [address] [place] [id number] [place] [address] Jun, Vitamin B12 deficiency E53.8 [facility] [address] [facility] [id number] [address] [place] [address] Jun, Crohn's disease of both smal l and large intestine with complication K50.819 [facility] [address] [place] [id number] [address] [place] [address] Jun, Crohn's disease of both smal l and large intestine with complication K50.819 [place] [address] [place] [address] May, Hyperlipidemia E78.5 ; Anxie ty F41.9 and Essential hypertension I10 [place] [address] [place] [id number] [place] [address] May, [place] [address] [place] [id number] [place] [address] May, Encounter for immunization Z 23 and Vitamin B12 deficiency E53.8 [facility] [address] [facility] [id number] [address] [place] [address] May, [facility] [address] [place] [id number] [address] [place] [address] Apr, [facility] [address] [place] [id number] [address] [place] [address] Apr, [facility] [address] [place] [id number] [place] [address] Apr, Crohn's disease of both smal l and large intestine with complication K50.819 [place] [address] [facility] [id number] [address] [place] [address] Apr, Vitamin B12 deficiency E53.8 [place] [address] [facility] [id number] [address] [place] [address] Apr, Crohn's disease of both smal l and large intestine with complication K50.819 and Acute pain of right shoulder M25.511 [place] [address] [facility] [id number] [address] [place] [address] Mar, Type 2 diabetes mellitus wit hout complication E11.9 ; Frequent falls R29.6 and Other chest pain R07.89 [place] [address] [facility] [id number] [address] [place] [address] Mar, [place] [address] [facility] [id number] [address] [place] [address] Mar, [place] [address] [facility] [id number] [address] [place] [address] Mar, Type 2 diabetes mellitus wit hout complication E11.9 and Blurry vision, bilateral H53.8 [place] [address] [facility] [id number] [address] [place] [address] Mar, Vitamin B12 deficiency E53.8 [place] [address] [facility] [id number] [address] [place] [address] Mar, Crohn's disease of both smal l and large intestine with complication K50.819 [place] [address] [facility] [id number] [address] [place] [address] February, Vitamin B12 deficiency E53.8 [place] [address] [facility] [id number] [address] [place] [address] Jan, Crohn's disease of both smal l and large intestine with complication K50.819 [place] [address] [facility] [id number] [address] [place] [address] Jan, Crohn's disease of both smal l and large intestine with complication K50.819 [facility] [address] [facility] [id number] [address] [place] [address] Jan, Dark brown-colored urine R82 .99 and Acute suppurative otitis media of right ear without spontaneous rupture of tympanic membrane, recurrence not specified H66.001 [facility] [address] [place] [id number] [address] [place] [address] Jan, Encounter for immunization Z 23 [facility] [address] [place] [id number] [address] [place] [address] Dec, Crohn's disease of both smal l and large intestine with complication K50.819 and Eustachian tube dysfunction, right H69.81 [facility] [address] [place] [id number] [address] [place] [address] Dec, [facility] [address] [address] Dec, Contusion of right knee, ini tial encounter S80.01XA [facility] [address] [place] [address] Dec, [facility] [address] [address] Dec, Acute pain of right knee M25 .561 [facility] [address] [place] [id number] [address] [place] [address] Dec, Iron deficiency anemia due t o chronic blood loss D50.0 [facility] [address] [place] [id number] [address] [place] [address] Dec, Hyperlipidemia E78.5 ; Type 2 diabetes mellitus without complication E11.9 ; Vitamin B12 deficiency E53.8 ; Essential hypertension I10 ; Obstructive sleep apnea on CPAP G47.33 and Periodic limb movement sleep disorder G47.61 [facility] [address] [place] [id number] [address] [place] [address] Nov, Type 2 diabetes mellitus wit hout complication E11.9 ; Vitamin B12 deficiency E53.8 ; Hyperlipidemia E78.5 ; Essential hypertension I10 ; Obstructive sleep apnea on CPAP G47.33 ; Periodic limb movement sleep disorder G47.61 ; Anxiety F41.9 ; Acquired hypothyroidism E03.9 and Chronic tension-type headache, intractable G44.221 [facility] [address] [facility] [id number] [address] [place] [address] 10 Nov, 2016 Crohn's disease of both smal l and large intestine with complication K50.819 [facility] [address] [id number] [address] [place] [address] 10 Nov, 2016 Vitamin B12 deficiency E53.8 [place] [address] [facility] [id number] [address] [place] [address] Oct, [place] [address] [facility] [id number] [address] [place] [address] Oct, Vitamin B12 deficiency E53.8 [place] [address] [facility] [id number] [address] [place] [address] Sep, [place] [address] [facility] [id number] [address] [place] [address] Sep, Vitamin B12 deficiency E53.8 [place] [address] [facility] [id number] [address] [place] [address] Aug, [place] [address] [facility] [id number] [address] [place] [address] Aug, Vitamin B12 deficiency E53.8 [place] [address] [id number] [address] [place] [address] Aug, [place] [address] [facility] [id number] [address] [place] [address] 24 Jul, 2016 Elevated ALT measurement R74 .0 [place] [address] [facility] [id number] [address] [place] [address] Jul, Hematuria R31.9 ; Acute righ t-sided thoracic back pain M54.6 ; Major depressive disorder, recurrent episode, moderate F33.1 and Elevated ALT measurement R74.0 [place] [address] [facility] [id number] [address] [place] [address] Jul, [place] [address] [facility] [id number] [address] [place] [address] 19 Jul, 2016 Elevated ALT measurement R74 .0 [place] [address] [facility] [id number] [address] [place] [address] 14 Jul, 2016 Iron deficiency anemia due t o chronic blood loss D50.0 [place] [address] [facility] [id number] [address] [place] [address] 14 Jul, 2016 Type 2 diabetes mellitus wit hout complication E11.9 ; Acquired hypothyroidism E03.9 ; Iron deficiency anemia due to chronic blood loss D50.0 ; Hyperlipidemia E78.5 and Essential hypertension I10 [place] [address] [place] [id number] [address] [place] [address] Jun, [place] [address] [facility] [id number] [address] [place] [address] Jun, Vitamin B12 deficiency E53.8 [place] [address] [facility] [id number] [address] [place] [address] 16 Jun, 2016 Type 2 diabetes mellitus wit hout complication E11.9 ; Acquired hypothyroidism E03.9 ; Iron deficiency anemia due to chronic blood loss D50.0 ; Hyperlipidemia E78.5 ; Essential hypertension I10 ; Chronic tension-type headache, intractable G44.221 ; Pulsatile tinnitus, bilateral H93.13 ; Obstructive sleep apnea on CPAP G47.33 and Major depressive disorder, recurrent episode, moderate F33.1 [place] [address] [facility] [id number] [address] [place] [address] May, Vitamin B12 deficiency E53.8 [place] [address] [facility] [id number] [address] [place] [address] May, [place] [address] [facility] [id number] [address] [place] [address] Apr, Vitamin B12 deficiency E53.8 [place] [address] [facility] [id number] [address] [place] [address] 05 Apr, 2016 [facility] [address] [facility] [id number] [address] [place] [address] Mar, Chronic tension-type headach e, intractable G44.221 and Major depressive disorder, recurrent episode, moderate F33.1 [facility] [address] [facility] [id number] [address] [place] [address] Mar, Vitamin B12 deficiency E53.8 [facility] [address] [facility] [id number] [address] [place] [address] February, [facility] [address] [facility] [id number] [address] [place] [address] February, Vitamin B12 deficiency E53.8 [facility] [address] [facility] [id number] [address] [place] [address] February, [facility] [address] [facility] [id number] [address] [place] [address] Jan, Dysuria R30.0 [facility] [address] [facility] [id number] [address] [place] [address] Jan, Type 2 diabetes mellitus wit hout complication E11.9 and Essential hypertension I10 [facility] [address] [facility] [id number] [address] [place] [address] 15 Jan, 2016 Chronic diarrhea K52.9 [facility] [address] [facility] [id number] [address] [place] [address] Jan, [facility] [address] [facility] [id number] [address] [place] [address] Jan, Chronic diarrhea K52.9 [facility] [address] [facility] [id number] [address] [place] [address] Jan, [facility] [address] [facility] [id number] [address] [place] [address] Jan, Dysuria R30.0 [facility] [address] [place] [id number] [address] [place] [address] 07 Jan, 2016 Vitamin B12 deficiency E53.8 [facility] [address] [address] 07 Jan, 2016 Dysuria R30.0 and Iron defic iency anemia due to chronic blood loss D50.0 [facility] [id number] [place] [phone] 05 Jan, 2016 Dysuria R30.0 [facility] [address] [place] [id number] [place] [phone] 04 Jan, 2016 [facility] [address] [id number] 15 Dec, 2015 [facility] [address] [id number] Dec, Iron deficiency anemia due t o chronic blood loss D50.0 [facility] [address] [id number] [place] [phone] Dec, Dysuria R30.0 ; Fatigue R53. 83 ; Hyperlipidemia E78.5 and Diarrhea R19.7 [facility] [address] [place] [place] [id number] [place] [phone] Dec, [facility] [address] [place] [id number] [place] [phone] Dec, [facility] [address] [id number] [place] [phone] Nov, Vitamin B12 deficiency E53.8 [facility] [address] [place] [phone] Oct, Vitamin B12 deficiency E53.8 [facility] [address] [place] [id number] [address] [place] [address] Oct, [facility] [address] [facility] [id number] [address] [place] [phone] 09 Adi, 2016 Headache R51 [facility] [address] [facility] [id number] [address] [place] [address] 07 Oct, 2015 Essential hypertension I10 ; Type 2 diabetes mellitus without complication E11.9 ; Vitamin B12 deficiency E53.8 ; Acquired hypothyroidism E03.9 ; Iron deficiency anemia due to chronic blood loss D50.0 and Hyperlipidemia E78.5 [facility] [address] [facility] [id number] [address] [place] [address] 17 Sep, 2015 Essential hypertension I10 ; Vitamin B12 deficiency E53.8 ; Iron deficiency anemia due to chronic blood loss D50.0 ; Type 2 diabetes mellitus without complication E11.9 ; Hyperlipidemia E78.5 and Acquired hypothyroidism E03.9 [facility] [address] [facility] [id number] [address] Sep, [facility] [address] [place] [id number] [address] [place] [address] Sep, [facility] [address] [address] Jul, [facility] [address] [place] [id number] [address] [place] [address] Jun, [facility] [address] [address] Jun, [facility] [address] [place] [id number] [place] [address] Jun, Hyperlipidemia 272.4 ; Iron deficiency anemia 280.9 ; Hypothyroidism 244.9 ; Diabetes mellitus without mention of complication, type II or unspecified type, not stated as uncontrolled 250.00 and Hypertension 401.9 [facility] [address] [facility] [id number] [address] [place] [address] Jun, [facility] [address] [place] [id number] [address] [place] [address] Jun, [facility] [address] [place] [id number] [address] [place] [address] May, Hyperlipidemia 272.4 [facility] [address] [id number] [address] [place] [address] May, [facility] [address] [id number] [address] [place] [address] May, [facility] [address] [facility] [id number] [address] [place] [address] Apr, Diabetes mellitus without me ntion of complication, type II or unspecified type, not stated as uncontrolled 250.00 ; Hypothyroidism 244.9 ; Hyperlipidemia 272.4 ; Pain in joint, lower leg 719.46 and RUQ pain 789.01 [facility] [address] [id number] [address] [place] [address] Mar, Sinusitis 473.9 [facility] [address] [facility] [id number] [address] [place] [address] Mar, [facility] [address] [place] [id number] [address] [place] [address] Mar, [facility] [address] [id number] [address] [place] [address] Mar, Hematochezia 578.1 [facility] [address] [facility] [id number] [address] [place] [address] February, Sinusitis 473.9 [facility] [address] [facility] [id number] [address] [place] [address] February, [facility] [address] [id number] [address] [place] [address] Jan, [facility] [address] [id number] [address] [place] [address] Jan, [facility] [address] [facility] [id number] [address] [place] [address] Dec, [facility] [address] [facility] [id number] [address] [place] [address] Dec, [facility] [address] [facility] [id number] [address] [place] [address] Dec, [facility] [address] [id number] [address] [place] [address], [place] [address] Dec, [facility] [address] [id number] [address] [place] [address], [place] [address] Dec, [facility] [address] [id number] [address] [place] [address], [place] [address] Dec, [facility] [address] [id number] [address] [place] [address], [place] [address] Dec, [facility] [address] [id number] [address] [place] [address], [place] [address] Dec, [facility] [address] [id number] [address] [place] [address], [place] [address] Dec, [facility] [address] [id number] [address] [place] [address], [place] [address] Dec, [facility] [address] [id number] [address] [place] [address], [place] [address] Dec, [facility] [address] [id number] [address] [place] [address], [place] [address] Nov, [facility] [address] [id number] [address] [place] [address], [place] [address] Nov, [facility] [address] [id number] [address] [place] [address], [place] [address] Nov, [facility] [address] [id number] [address] [place] [address], [place] [address] Nov, [facility] [address] [id number] [address] [place] [address], [place] [address] Oct, [facility] [address] [id number] [address] [place] [address], [place] [address] Oct, [facility] [address] [id number] [address] [place] [address], [place] [address] Oct, [facility] [address] [id number] [address] [place] [address], [place] [address] Oct, [facility] [address] [id number] [address] [place] [address], [place] [address] Oct, [facility] [address] [id number] [address] [place] [address], [place] [address] Oct, [facility] [address] [id number] [address] [place] [address], [place] [address] Sep, [facility] [address] [id number] [address] [place] [address], [place] [address] Sep, [facility] [address] [id number] [address] [place] [address], [place] [address] Sep, [facility] [address] [id number] [address] [place] [address], [place] [address] Sep, [facility] [address] [id number] [address] [place] [address], [place] [address] Sep, [facility] [address] [id number] [address] [place] [address], [place] [address] Sep, [facility] [address] [id number] [address] [place] [address], [place] [address] Sep, [facility] [address] [id number] [address] [place] [address], [place] [address] Aug, [facility] [address] [id number] [address] [place] [address], [place] [address] Aug, [facility] [address] [id number] [address] [place] [address], [place] [address] Aug, [facility] [address] [id number] [address] [place] [address], [place] [address] Aug, [facility] [address] [id number] [address] [place] [address], [place] [address] Aug, [facility] [address] [id number] [address] [place] [address], [place] [address] Aug, [facility] [address] [id number] [address] [place] [address], [place] [address] Aug, [facility] [address] [id number] [address] [place] [address], [place] [address] Aug, [facility] [address] [id number] [address] [place] [address], [place] [address] Aug, [facility] [address] [id number] [address] [place] [address], [place] [address] Aug, [facility] [address] [id number] [address] [place] [address], [place] [address] Aug, [facility] [address] [id number] [address] [place] [address], [place] [address] Aug, [facility] [address] [id number] [address] [place] [address], [place] [address] Aug, [facility] [address] [id number] [address] [place] [address], [place] [address] Aug, [facility] [address] [id number] [address] [place] [address], [place] [address] Jul, [facility] [address] [id number] [address] [place] [address] Jul, [facility] [address] [id number] [address] [place] [address] Jul, [facility] [address] [id number] [address] [place] [address] Jul, [facility] [address] [id number] [address] [place] [address], [place] [address] Jun, [facility] [address] [id number] [address] [place] [address], [place] [address] Jun, [facility] [address] [id number] [address] [place] [address], [place] [address] Jun, [facility] [address] [id number] [facility] [place] [address] 23 Jun, 2013 [facility] [address] [id number] [facility] [place] [address] 19 Jun, 2013 [facility] [address] [id number] [facility] [place] [address] 19 Jun, 2013 [facility] [address] [id number] [address] [place] [address], [place] [address] 11 Jun, 2013 [facility] [address] [id number] [address] [place] [address], [place] [address] 11 Jun, 2013 [facility] [address] [id number] [address] [place] [address], [place] [address] 11 Jun, 2013 [facility] [address] [id number] [address] [place] [address], [place] [address] 11 Jun, 2013 [facility] [address] [id number] [address] [place] [address], [place] [address] 10 Jun, 2013 [facility] [address] [id number] [address] [place] [address], [place] [address] 10 Jun, 2013 [facility] [address] [id number] [address] [place] [address], [place] [address] 09 Jun, 2013 [facility] [address] [id number] [address] [place] [address], [place] [address] 09 Jun, 2013 [facility] [address] [id number] [address] [place] [address], [place] [address] 14 May, 2014 [facility] [address] [id number] [address] [place] [address], [place] [address] 14 May, 2014 [facility] [address] [id number] [address] [place] [address], [place] [address] May, [facility] [address] [id number] [address] [place] [address], [place] [address] May, [facility] [address] [id number] [address] [place] [address], [place] [address] May, [facility] [address] [id number] [address] [place] [address], [place] [address] May, [facility] [address] [id number] [address] [place] [address], [place] [address] Apr, [facility] [address] [id number] [address] [place] [address], [place] [address] Apr, [facility] [address] [id number] [address] [place] [address], [place] [address] Apr, [facility] [address] [id number] [address] [place] [address], [place] [address] Apr, [facility] [address] [id number] [address] [place] [address], [place] [address] Apr, [facility] [address] [id number] [address] [place] [address], [place] [address] Apr, [facility] [address] [id number] [address] [place] [address], [place] [address] Apr, [facility] [address] [id number] [address] [place] [address], [place] [address] Apr, [facility] [address] [id number] [address] [place] [address], [place] [address] Apr, [facility] [address] [id number] [address] [place] [address], [place] [address] Apr, [facility] [address] [id number] [address] [place] [address], [place] [address] Apr, [facility] [address] [id number] [address] [place] [address], [place] [address] Mar, [facility] [address] [id number] [address] [place] [address], [place] [address] Mar, [facility] [address] [id number] [address] [place] [address], [place] [address] Mar, [facility] [address] [id number] [address] [place] [address], [place] [address] Mar, [facility] [address] [id number] [address] [place] [address], [place] [address] February, [facility] [address] [id number] [address] [place] [address], [place] [address] February, [facility] [address] [id number] [address] [place] [address], [place] [address] Jan, [facility] [address] [id number] [address] [place] [address], [place] [address] Jan, [facility] [address] [place] [id number] Jan, [facility] [address] [id number] [address] [place] [address], [place] [address] Jan, [facility] [address] [id number] [address] [place] [address], [place] [address] Jan, [facility] [address] [id number] [address] [place] [address], [place] [address] Jan, [facility] [address] [id number] [address] [place] [address], [place] [address] Jan, [facility] [address] [id number] [address] [place] [address], [place] [address] Jan, [facility] [address] [id number] [address] [place] [address], [place] [address] Jan, [facility] [address] [id number] [address] [place] [address], [place] [address] Jan, [facility] [address] [id number] [address] [place] [address], [place] [address] Jan, [facility] [address] [id number] [address] [place] [address], [place] [address] Jan, [facility] [address] [id number] [address] [place] [address], [place] [address] Jan, [facility] [address] [id number] [address] [place] [address], [place] [address] 07 Jan, 2014 [facility] [address] [id number] [address] [place] [address], [place] [address] Jan, [facility] [address] [id number] [address] [place] [address], [place] [address] Jan, [facility] [address] [id number] [address] [place] [address], [place] [address] Jan, [facility] [address] [id number] [address] [place] [address], [place] [address] Dec, [facility] [address] [id number] [address] [place] [address], [place] [address] Dec, [facility] [address] [id number] [address] [place] [address], [place] [address] Dec, [facility] [address] [id number] [address] [place] [address], [place] [address] Dec, [facility] [address] [id number] [address] [place] [address], [place] [address] Dec, [facility] [address] [id number] [address] [place] [address], [place] [address] Dec, [facility] [address] [id number] [address] [place] [address], [place] [address] Dec, [facility] [address] [id number] [address] [place] [address], [place] [address] Nov, [facility] [address] [id number] [address] [place] [address], [place] [address] Nov, [facility] [address] [id number] [address] [place] [address], [place] [address] Nov, [facility] [address] [id number] [address] [place] [address], [place] [address] Nov, [facility] [address] [id number] [address] [place] [address], [place] [address] Nov, [facility] [address] [id number] [address] [place] [address], [place] [address] Nov, [facility] [address] [id number] [address] [place] [address], [place] [address] Nov, [facility] [address] [id number] [address] [place] [address], [place] [address] Oct, [facility] [address] [id number] [address] [place] [address], [place] [address] Oct, [facility] [address] [id number] [address] [place] [address], [place] [address] Sep, [facility] [address] [id number] [address] [place] [address], [place] [address] Sep, [facility] [address] [id number] [address] [place] [address], [place] [address] Sep, [facility] [address] [id number] [address] [place] [address], [place] [address] Sep, [facility] [address] [id number] [address] [place] [address], [place] [address] Sep, [facility] [address] [id number] [address] [place] [address], [place] [address] Sep, [facility] [address] [id number] [address] [place] [address], [place] [address] Sep, [facility] [address] [id number] [address] [place] [address], [place] [address] Sep, [facility] [address] [id number] [address] [place] [address], [place] [address] Sep, [facility] [address] [id number] [address] [place] [address], [place] [address] Sep, [facility] [address] [id number] [address] [place] [address], [place] [address] Aug, [facility] [address] [id number] [address] [place] [address] Aug, [facility] [address] [facility] [id number] [address] [place] [address] Aug, [facility] [address] [facility] [id number] [address] [place] [address] Aug, [facility] [address] [facility] [id number] [address] [place] [address] Aug, [facility] [address] [facility] [id number] [address] [place] [address] Jul, [facility] [address] [facility] [id number] [address] [place] [address] Jul, [facility] [address] [facility] [id number] [address] [place] [address] Jul, [facility] [address] [facility] [id number] [address] [place] [address] Jul, IMMUNIZATIONS No Known Immunizations SOCIAL HISTORY [...]
--- OUTSIDE RECORDS SUMMARY | 2020-03-16 11:54 | XMS REPORT ---
Author Author Swathi Benavides Organization [facility] Address [address] [place] [address] Care Team Providers Care Debt Recovery Officer Name Role Phone WIL Benavides Unavailable PROBLEMS Type Condition ICD9-CM Code LOW66-CO Code Onset Dates Condition S tatus SNOMED Code Problem Sensorineural hearing loss of right ear H90.41 Active 55779546 Problem Obstructive sleep apnea on CPAP G47.33 Active 61211326 Problem Periodic limb movement sleep disorder G47.61 Active 914707500 Problem Iron deficiency anemia due to chronic blood loss D 50.0 Active 30010315 Problem MACHUCA (nonalcoholic steatohepatitis) K75.81 Active 375225193 Problem Vitamin B12 deficiency E53.8 Active 249686688 Problem Chronic diarrhea K52.9 Active 236 409432 Problem Vitamin D deficiency E55.9 Active 79278481 Problem BMI 50.0-59.9, adult Z68.43 Active 488222475 Problem Fatty liver K76.0 Active 15120445 7 Problem Anxiety F41.9 Active 30987808 Problem Major depressive disorder, recurrent episode, moderate F33.1 Active 223310504 Problem Chronic tension-type headache, intractable G44.221 Active 855396723 Problem Right upper quadrant pain R10.11 Acti ve 64184834 Problem Frequent falls R29.6 Active 64352 2002 Problem Crohn's disease of both small and large intestin e with complication K50.819 Active 86279009 Problem Type 2 diabetes mellitus with other specified complication E11.69 Active 416022614410 Problem Hyperlipidemia, unspecified E78.5 Ac tive 63594584 Problem Mixed stress and urge urinary incontinence N39.46 Active 943413006 Problem Sinusitis chronic, frontal J32.1 Act katlyn 05691153 Problem Seasonal allergies J30.2 Active 4 46795750 Problem Other chronic pain G89.29 Active 8 4563747 Problem Hyperlipidemia E78.5 Active 66610 004 Problem Bilateral primary osteoarthritis of knee M17.0 Active 751087430 Problem Essential hypertension I10 Active 27866062 Problem Acquired hypothyroidism E03.9 Active 572535668 Problem History of hysterectomy for benign disease Z90.710 Active 481954088 Problem Morbid (severe) obesity due to excess calories E66 .01 Active 806182881 Problem Other cirrhosis of liver K74.69 Activ e 33941120 Problem Portal hypertension K76.6 Active 99161612 ALLERGIES No Information ENCOUNTERS Encounter Location Date Diagnosis [place] [address] [place] [id number] [place] [address] May, Iron deficiency anemia due t o [...] Major depressive disorder, recurrent episode, moderate F33.1 [place] [address] [place] [id number] [place] [address] May, Hyperlipidemia, unspecified E78.5 ; Other cirrhosis of liver K74.69 and Iron deficiency anemia due to chronic blood loss D50.0 [place] [address] [place] [id number] [place] [address] February, [facility] [address] [place] [address] February, Acute recurrent pansinusitis J01.41 [facility] [address] [place] [address] February, Acute maxillary sinusitis, recurrence no t specified J01.00 [place] [address] [place] [id number] [place] [address] Jan, Bilateral primary osteoarthr itis of knee M17.0 ; Morbid obesity E66.01 ; Viral syndrome B34.9 and Atrial dilatation, left I51.7 [place] [address] [place] [id number] [place] [address] Jan, [facility] [address] [facility] [id number] [address] [place] [address] Dec, Trigeminy R00.8 [place] [address] [place] [id number] [place] [address] Dec, Essential hypertension I10 ; Morbid obesity E66.01 ; Low back pain M54.5 ; Other chronic pain G89.29 and Pain in right knee M25.561 [facility] [address] [place] [id number] [place] [address] Nov, [place] [address] [address] Oct, Palpitations R00.2 [place] [address] [place] [id number] [address] [place] [address] Oct, Encounter for Medicare annua l wellness [...] intestine with complication K50.819 [facility] [address] [facility] [id number] [address] [place] [phone] Oct, [facility] [address] [place] [id number] [address] [place] [phone] Oct, Crohn's disease of both smal l and large intestine with complication K50.819 [facility] [address] [facility] [id number] [address] [place] [address] Jul, Sinusitis chronic, frontal J 32.1 ; Acute mucoid otitis media of both ears H65.113 ; Seasonal allergies J30.2 and BMI 50.0-59.9, adult Z68.43 [facility] [address] [place] [id number] [address] [place] [address] Jul, Essential hypertension I10 ; Type 2 diabetes mellitus with other specified complication E11.69 ; BMI 50.0-59.9, adult Z68.43 ; Mixed stress and urge urinary incontinence N39.46 and Mid back pain on right side M54.9 [facility] [address] [place] [id number] [place] [address] Jun, Iron deficiency anemia due t o chronic blood loss D50.0 ; Hyperlipidemia E78.5 ; Type 2 diabetes mellitus with other specified complication E11.69 ; Vitamin B12 deficiency E53.8 and Vitamin D deficiency E55.9 [facility] [address] [place] [id number] [address] [place] [address] Jun, Cough R05 and BMI 50.0-59.9, adult Z68.43 [place] [address] [place] [address] Jun, [place] [address] [place] [id number] [address] [place] [address] May, Iron deficiency anemia due t o chronic blood loss D50.0 ; Chronic diarrhea K52.9 ; Essential hypertension I10 ; Type 2 diabetes mellitus with other specified complication E11.69 ; Vitamin D deficiency E55.9 ; Colon stricture K56.699 ; Vitamin B12 deficiency E53.8 ; Hyperlipidemia E78.5 and BMI 50.0-59.9, adult Z68.43 [facility] [address] [place] [id number] [address] [place] [address] May, [place] [address] [place] [id number] [place] [address] Apr, Nonhealing wound of heel S91 .309A and Body mass index (BMI) of 50- 59.9 in adult Z68.43 [place] [address] [place] [id number] [address] [place] [address] Mar, [place] [address] [place] [id number] [place] [address] Mar, BMI 50.0-59.9, adult Z68.43 ; Flank pain R10.9 and Weight loss counseling, encounter for Z71.3 [place] [address] [address] February, [place] [address] [address] Jan, [place] [address] [address] Jan, [facility] [address] [address] Jan, Diarrhea due to staphylococc us A04.8 and Diarrhea, unspecified type R19.7 [place] [address] [address] Jan, Acquired hypothyroidism E03. 9 ; Type 2 diabetes mellitus with other specified complication E11.69 ; Hyperlipidemia E78.5 ; Essential hypertension I10 ; Major depressive disorder, recurrent episode, moderate F33.1 and Vitamin D deficiency E55.9 [place] [address] [place] [id number] [place] [address] Jan, Type 2 diabetes mellitus wit h other specified complication E11.69 ; Hyperlipidemia E78.5 ; Essential hypertension I10 ; Acquired hypothyroidism E03.9 ; Major depressive disorder, recurrent episode, moderate F33.1 ; Vitamin D deficiency E55.9 ; Sinus congestion R09.81 and BMI 50.0-59.9, adult Z68.43 [place] [address] [place] [id number] [place] [address] Dec, [place] [address] [address] Sep, Encounter for immunization Z 23 [place] [address] [address] Sep, [facility] [address] [facility] [id number] [address] [place] [phone] Sep, Vitamin B12 deficiency E53.8 [facility] [address] [facility] [id number] [address] [place] [address] Aug, [place] [address] [facility] [id number] [address] [place] [address] Aug, BMI 60.0-69.9, adult Z68.44 and Acute non-recurrent maxillary sinusitis J01.00 [facility] [address] [facility] [id number] [address] [place] [address] Aug, [place] [address] [place] [id number] [place] [address] Aug, Medicare annual wellness vis it, initial Z00.00 ; Screening for breast cancer Z12.31 ; BMI 40.0-44.9, adult Z68.41 and Acquired hypothyroidism E03.9 [place] [address] [facility] [id number] [address] [place] [phone] Jul, Actinic keratosis L57.0 [place] [address] [facility] [id number] [address] [place] [address] Jul, Actinic keratosis L57.0 [place] [address] [facility] [id number] [address] [place] [address] Jul, Type 2 diabetes mellitus wit h other specified complication E11.69 ; Actinic keratosis L57.0 and Hypothyroidism, unspecified E03.9 [place] [address] [facility] [id number] [address] [place] [address] Jul, [place] [address] [facility] [id number] [address] [place] [address] Jul, [place] [address] [facility] [id number] [address] [place] [address] Jul, Vitamin B12 deficiency E53.8 [place] [address] [facility] [id number] [address] [place] [address] Jun, Acquired hypothyroidism E03. 9 and Chronic tension-type headache, intractable G44.221 [facility] [address] [facility] [id number] [address] [place] [address] Jun, Back muscle spasm M62.830 an d BMI 50.0-59.9, adult Z68.43 [facility] [address] [place] [id number] [place] [address] Jun, Vitamin B12 deficiency E53.8 [facility] [address] [facility] [id number] [address] [place] [address] Jun, Crohn's disease of both smal l and large intestine with complication K50.819 [facility] [address] [place] [id number] [address] [place] [address] Jun, Crohn's disease of both smal l and large intestine with complication K50.819 [place] [address] [place] [address] May, Hyperlipidemia E78.5 ; Anxie ty F41.9 and Essential hypertension I10 [place] [address] [place] [id number] [place] [address] May, [place] [address] [place] [id number] [place] [address] May, Encounter for immunization Z 23 and Vitamin B12 deficiency E53.8 [facility] [address] [facility] [id number] [address] [place] [address] May, [facility] [address] [place] [id number] [address] [place] [address] Apr, [facility] [address] [place] [id number] [place] [address] Apr, [facility] [address] [place] [id number] [place] [address] Apr, Crohn's disease of both smal l and large intestine with complication K50.819 [place] [address] [facility] [id number] [address] [place] [address] Apr, Vitamin B12 deficiency E53.8 [place] [address] [facility] [id number] [address] [place] [address] Apr, Crohn's disease of both smal l and large intestine with complication K50.819 and Acute pain of right shoulder M25.511 [place] [address] [facility] [id number] [address] [place] [address] Mar, Type 2 diabetes mellitus wit hout complication E11.9 ; Frequent falls R29.6 and Other chest pain R07.89 [place] [address] [facility] [id number] [address] [place] [address] Mar, [place] [address] [facility] [id number] [address] [place] [address] Mar, [place] [address] [facility] [id number] [address] [place] [address] Mar, Type 2 diabetes mellitus wit hout complication E11.9 and Blurry vision, bilateral H53.8 [place] [address] [facility] [id number] [address] [place] [address] Mar, Vitamin B12 deficiency E53.8 [place] [address] [facility] [id number] [address] [place] [address] Mar, Crohn's disease of both smal l and large intestine with complication K50.819 [place] [address] [facility] [id number] [address] [place] [address] February, Vitamin B12 deficiency E53.8 [place] [address] [facility] [id number] [address] [place] [address] Jan, Crohn's disease of both smal l and large intestine with complication K50.819 [place] [address] [facility] [id number] [address] [place] [id number] Jan, Crohn's disease of both smal l and large intestine with complication K50.819 [facility] [address] [facility] [id number] [address] [place] [address] Jan, Dark brown-colored urine R82 .99 and Acute suppurative otitis media of right ear without spontaneous rupture of tympanic membrane, recurrence not specified H66.001 [facility] [address] [place] [id number] [address] [place] [address] Jan, Encounter for immunization Z 23 [facility] [address] [place] [id number] [address] [place] [address] Dec, Crohn's disease of both smal l and large intestine with complication K50.819 and Eustachian tube dysfunction, right H69.81 [facility] [address] [place] [id number] [address] [place] [address] Dec, [facility] [address] [address] Dec, Contusion of right knee, ini tial encounter S80.01XA [facility] [address] [place] [address] Dec, [facility] [address] [address] Dec, Acute pain of right knee M25 .561 [facility] [address] [place] [id number] [address] [place] [address] Dec, Iron deficiency anemia due t o chronic blood loss D50.0 [facility] [address] [place] [id number] [address] [place] [address] Dec, Hyperlipidemia E78.5 ; Type 2 diabetes mellitus without complication E11.9 ; Vitamin B12 deficiency E53.8 ; Essential hypertension I10 ; Obstructive sleep apnea on CPAP G47.33 and Periodic limb movement sleep disorder G47.61 [facility] [address] [place] [id number] [address] [place] [address] Nov, Type 2 diabetes mellitus wit hout complication E11.9 ; Vitamin B12 deficiency E53.8 ; Hyperlipidemia E78.5 ; Essential hypertension I10 ; Obstructive sleep apnea on CPAP G47.33 ; Periodic limb movement sleep disorder G47.61 ; Anxiety F41.9 ; Acquired hypothyroidism E03.9 and Chronic tension-type headache, intractable G44.221 [facility] [address] [facility] [id number] [address] [place] [address] 10 Nov, 2016 Crohn's disease of both smal l and large intestine with complication K50.819 [facility] [address] [id number] [address] [place] [address] 10 Nov, 2016 Vitamin B12 deficiency E53.8 [place] [address] [facility] [id number] [address] [place] [address] Oct, [place] [address] [facility] [id number] [address] [place] [address] Oct, Vitamin B12 deficiency E53.8 [place] [address] [facility] [id number] [address] [place] [address] Sep, [place] [address] [facility] [id number] [address] [place] [address] Sep, Vitamin B12 deficiency E53.8 [place] [address] [facility] [id number] [address] [place] [address] Aug, [place] [address] [facility] [id number] [address] [place] [address] Aug, Vitamin B12 deficiency E53.8 [place] [address] [id number] [address] [place] [address] Aug, [place] [address] [facility] [id number] [address] [place] [phone] 24 Jul, 2016 Elevated ALT measurement R74 .0 [place] [address] [facility] [id number] [address] [place] [address] Jul, Hematuria R31.9 ; Acute righ t-sided thoracic back pain M54.6 ; Major depressive disorder, recurrent episode, moderate F33.1 and Elevated ALT measurement R74.0 [place] [address] [facility] [id number] [address] [place] [address] Jul, [place] [address] [facility] [id number] [address] [place] [phone] 19 Jul, 2016 Elevated ALT measurement R74 .0 [place] [address] [facility] [id number] [address] [place] [address] 14 Jul, 2016 Iron deficiency anemia due t o chronic blood loss D50.0 [place] [address] [facility] [id number] [address] [place] [address] 14 Jul, 2016 Type 2 diabetes mellitus wit hout complication E11.9 ; Acquired hypothyroidism E03.9 ; Iron deficiency anemia due to chronic blood loss D50.0 ; Hyperlipidemia E78.5 and Essential hypertension I10 [place] [address] [place] [id number] [address] [place] [address] Jun, [place] [address] [facility] [id number] [address] [place] [address] Jun, Vitamin B12 deficiency E53.8 [place] [address] [facility] [id number] [address] [place] [address] 16 Jun, 2016 Type 2 diabetes mellitus wit hout complication E11.9 ; Acquired hypothyroidism E03.9 ; Iron deficiency anemia due to chronic blood loss D50.0 ; Hyperlipidemia E78.5 ; Essential hypertension I10 ; Chronic tension-type headache, intractable G44.221 ; Pulsatile tinnitus, bilateral H93.13 ; Obstructive sleep apnea on CPAP G47.33 and Major depressive disorder, recurrent episode, moderate F33.1 [place] [address] [facility] [id number] [address] [place] [address] May, Vitamin B12 deficiency E53.8 [place] [address] [facility] [id number] [address] [place] [address] May, [place] [address] [facility] [id number] [address] [place] [phone] Apr, Vitamin B12 deficiency E53.8 [place] [address] [facility] [id number] [address] [place] [phone] 05 Apr, 2016 [facility] [address] [facility] [id number] [address] [place] [address] Mar, Chronic tension-type headach e, intractable G44.221 and Major depressive disorder, recurrent episode, moderate F33.1 [facility] [address] [facility] [id number] [address] [place] [id number] Mar, Vitamin B12 deficiency E53.8 [facility] [address] [facility] [id number] [address] [place] [address] February, [facility] [address] [facility] [id number] [address] [place] [id number] February, Vitamin B12 deficiency E53.8 [facility] [address] [facility] [id number] [address] [place] [phone] February, [facility] [address] [facility] [id number] [address] [place] [address] Jan, Dysuria R30.0 [facility] [address] [facility] [id number] [address] [place] [phone] Jan, Type 2 diabetes mellitus wit hout complication E11.9 and Essential hypertension I10 [facility] [address] [facility] [id number] [address] [place] [id number] 15 Jan, 2016 Chronic diarrhea K52.9 [facility] [address] [facility] [id number] [address] [place] [address] Jan, [facility] [address] [facility] [id number] [address] [place] [phone] Jan, Chronic diarrhea K52.9 [facility] [address] [facility] [id number] [address] [place] [phone] Jan, [facility] [address] [facility] [id number] [address] [place] [address] Jan, Dysuria R30.0 [facility] [address] [place] [id number] [address] [place] [phone] 07 Jan, 2016 Vitamin B12 deficiency E53.8 [facility] [address] [address] 07 Jan, 2016 Dysuria R30.0 and Iron defic iency anemia due to chronic blood loss D50.0 [facility] [id number] [place] [address] 05 Jan, 2016 Dysuria R30.0 [facility] [address] [place] [id number] [place] [address] 04 Jan, 2016 [facility] [address] [address] 15 Dec, 2015 [facility] [address] [address] Dec, Iron deficiency anemia due t o chronic blood loss D50.0 [facility] [address] [place] [id number] [address] [place] [address] Dec, Dysuria R30.0 ; Fatigue R53. 83 ; Hyperlipidemia E78.5 and Diarrhea R19.7 [facility] [address] [place] [id number] [address] [place] [address] Dec, [facility] [address] [place] [id number] [address] [place] [phone] Dec, [facility] [address] [place] [id number] [address] [place] [address] Nov, Vitamin B12 deficiency E53.8 [facility] [address] [place] [address] Oct, Vitamin B12 deficiency E53.8 [facility] [address] [place] [id number] [address] [place] [phone] Oct, [facility] [address] [facility] [id number] [address] [place] [phone] 09 Adi, 2016 Headache R51 [facility] [address] [facility] [id number] [address] [place] [phone] 07 Oct, 2015 Essential hypertension I10 ; Type 2 diabetes mellitus without complication E11.9 ; Vitamin B12 deficiency E53.8 ; Acquired hypothyroidism E03.9 ; Iron deficiency anemia due to chronic blood loss D50.0 and Hyperlipidemia E78.5 [facility] [address] [facility] [id number] [address] [place] [address] 17 Sep, 2015 Essential hypertension I10 ; Vitamin B12 deficiency E53.8 ; Iron deficiency anemia due to chronic blood loss D50.0 ; Type 2 diabetes mellitus without complication E11.9 ; Hyperlipidemia E78.5 and Acquired hypothyroidism E03.9 [facility] [address] [facility] [id number] [address] Sep, [facility] [address] [place] [id number] [address] [place] [address] Sep, [facility] [address] [address] Jul, [facility] [address] [id number] [address] [place] [address] Jun, [facility] [address] [address] Jun, [facility] [id number] [place] [address] Jun, Hyperlipidemia 272.4 ; Iron deficiency anemia 280.9 ; Hypothyroidism 244.9 ; Diabetes mellitus without mention of complication, type II or unspecified type, not stated as uncontrolled 250.00 and Hypertension 401.9 [facility] [address] [facility] [id number] [address] [place] [address] Jun, [facility] [address] [id number] [address] [place] [address] Jun, [facility] [address] [id number] [address] [place] [address] May, Hyperlipidemia 272.4 [facility] [address] [id number] [address] [place] [address] May, [facility] [address] [id number] [address] [place] [address] May, [facility] [address] [facility] [id number] [address] [place] [address] Apr, Diabetes mellitus without me ntion of complication, type II or unspecified type, not stated as uncontrolled 250.00 ; Hypothyroidism 244.9 ; Hyperlipidemia 272.4 ; Pain in joint, lower leg 719.46 and RUQ pain 789.01 [facility] [address] [id number] [address] [place] [address] Mar, Sinusitis 473.9 [facility] [address] [facility] [id number] [address] [place] [address] Mar, [facility] [address] [id number] [address] [place] [address] Mar, [facility] [address] [id number] [address] [place] [address] Mar, Hematochezia 578.1 [facility] [address] [facility] [id number] [address] [place] [address] February, Sinusitis 473.9 [facility] [address] [facility] [id number] [address] [place] [address] February, [facility] [address] [id number] [address] [place] [address] Jan, [facility] [address] [id number] [address] [place] [address] Jan, [facility] [address] [facility] [id number] [address] [place] [address] Dec, [facility] [address] [facility] [id number] [address] [place] [phone] Dec, [facility] [address] [facility] [id number] [address] [place] [address] Dec, [facility] [address] [id number] [address] [place] [address], [place] [address] Dec, [facility] [address] [id number] [address] [place] [address], [place] [address] Dec, [facility] [address] [id number] [address] [place] [address], [place] [address] Dec, [facility] [address] [id number] [address] [place] [address], [place] [address] Dec, [facility] [address] [id number] [address] [place] [address], [place] [address] Dec, [facility] [address] [id number] [address] [place] [address], [place] [address] Dec, [facility] [address] [id number] [address] [place] [address], [place] [address] Dec, [facility] [address] [id number] [address] [place] [address], [place] [address] Dec, [facility] [address] [id number] [address] [place] [address], [place] [address] Nov, [facility] [address] [id number] [address] [place] [address], [place] [address] Nov, [facility] [address] [id number] [address] [place] [address], [place] [address] Nov, [facility] [address] [id number] [address] [place] [address], [place] [address] Nov, [facility] [address] [id number] [address] [place] [address], [place] [address] Oct, [facility] [address] [id number] [address] [place] [address], [place] [address] Oct, [facility] [address] [id number] [address] [place] [address], [place] [address] Oct, [facility] [address] [id number] [address] [place] [address], [place] [address] Oct, [facility] [address] [id number] [address] [place] [address], [place] [address] Oct, [facility] [address] [id number] [address] [place] [address], [place] [address] Oct, [facility] [address] [id number] [address] [place] [address], [place] [address] Sep, [facility] [address] [id number] [address] [place] [address], [place] [address] Sep, [facility] [address] [id number] [address] [place] [address], [place] [address] Sep, [facility] [address] [id number] [address] [place] [address], [place] [address] Sep, [facility] [address] [id number] [address] [place] [address], [place] [address] Sep, [facility] [address] [id number] [address] [place] [address], [place] [address] Sep, [facility] [address] [id number] [address] [place] [address], [place] [address] Sep, [facility] [address] [id number] [address] [place] [address], [place] [address] Aug, [facility] [address] [id number] [address] [place] [address], [place] [address] Aug, [facility] [address] [id number] [address] [place] [address], [place] [address] Aug, [facility] [address] [id number] [address] [place] [address], [place] [address] Aug, [facility] [address] [id number] [address] [place] [address], [place] [address] Aug, [facility] [address] [id number] [address] [place] [address], [place] [address] Aug, [facility] [address] [id number] [address] [place] [address], [place] [address] Aug, [facility] [address] [id number] [address] [place] [address], [place] [address] Aug, [facility] [address] [id number] [address] [place] [address], [place] [address] Aug, [facility] [address] [id number] [address] [place] [address], [place] [address] Aug, [facility] [address] [id number] [address] [place] [address], [place] [address] Aug, [facility] [address] [id number] [address] [place] [address], [place] [address] Aug, [facility] [address] [id number] [address] [place] [address], [place] [address] Aug, [facility] [address] [id number] [address] [place] [address], [place] [address] Aug, [facility] [address] [id number] [address] [place] [address], [place] [address] Jul, [facility] [address] [id number] [address] [place] [address] Jul, [facility] [address] [id number] [address] [place] [address] Jul, [facility] [address] [id number] [address] [place] [address] Jul, [facility] [address] [id number] [address] [place] [address], [place] [address] Jun, [facility] [address] [id number] [address] [place] [address], [place] [address] Jun, [facility] [address] [id number] [address] [place] [address], [place] [address] Jun, [facility] [address] [id number] [facility] [address] 23 Jun, 2013 [facility] [address] [id number] [facility] [place] [address] 19 Jun, 2013 [facility] [address] [id number] [facility] [place] [address] 19 Jun, 2013 [facility] [address] [id number] [address] [place] [address], [place] [address] 11 Jun, 2013 [facility] [address] [id number] [address] [place] [address], [place] [address] 11 Jun, 2013 [facility] [address] [id number] [address] [place] [address], [place] [address] 11 Jun, 2013 [facility] [address] [id number] [address] [place] [address], [place] [address] 11 Jun, 2013 [facility] [address] [id number] [address] [place] [address], [place] [address] 10 Jun, 2013 [facility] [address] [id number] [address] [place] [address], [place] [address] 10 Jun, 2013 [facility] [address] [id number] [address] [place] [address], [place] [address] 09 Jun, 2013 [facility] [address] [id number] [address] [place] [address], [place] [address] 09 Jun, 2013 [facility] [address] [id number] [address] [place] [address], [place] [address] 14 May, 2014 [facility] [address] [id number] [address] [place] [address], [place] [address] 14 May, 2014 [facility] [address] [id number] [address] [place] [address], [place] [address] May, [facility] [address] [id number] [address] [place] [address], [place] [address] May, [facility] [address] [id number] [address] [place] [address], [place] [address] May, [facility] [address] [id number] [address] [place] [address], [place] [address] May, [facility] [address] [id number] [address] [place] [address], [place] [address] Apr, [facility] [address] [id number] [address] [place] [address], [place] [address] Apr, [facility] [address] [id number] [address] [place] [address], [place] [address] Apr, [facility] [address] [id number] [address] [place] [address], [place] [address] Apr, [facility] [address] [id number] [address] [place] [address], [place] [address] Apr, [facility] [address] [id number] [address] [place] [address], [place] [address] Apr, [facility] [address] [id number] [address] [place] [address], [place] [address] Apr, [facility] [address] [id number] [address] [place] [address], [place] [address] Apr, [facility] [address] [id number] [address] [place] [address], [place] [address] Apr, [facility] [address] [id number] [address] [place] [address], [place] [address] Apr, [facility] [address] [id number] [address] [place] [address], [place] [address] Apr, [facility] [address] [id number] [address] [place] [address], [place] [address] Mar, [facility] [address] [id number] [address] [place] [address], [place] [address] Mar, [facility] [address] [id number] [address] [place] [address], [place] [address] Mar, [facility] [address] [id number] [address] [place] [address], [place] [address] Mar, [facility] [address] [id number] [address] [place] [address], [place] [address] February, [facility] [address] [id number] [address] [place] [address], [place] [address] February, [facility] [address] [id number] [address] [place] [address], [place] [address] Jan, [facility] [address] [id number] [address] [place] [address], [place] [address] Jan, [facility] [address] [place] [id number] Jan, [facility] [address] [id number] [address] [place] [address], [place] [address] Jan, [facility] [address] [id number] [address] [place] [address], [place] [address] Jan, [facility] [address] [id number] [address] [place] [address], [place] [address] Jan, [facility] [address] [id number] [address] [place] [address], [place] [address] Jan, [facility] [address] [id number] [address] [place] [address], [place] [address] Jan, [facility] [address] [id number] [address] [place] [address], [place] [address] Jan, [facility] [address] [id number] [address] [place] [address], [place] [address] Jan, [facility] [address] [id number] [address] [place] [address], [place] [address] Jan, [facility] [address] [id number] [address] [place] [address], [place] [address] Jan, [facility] [address] [id number] [address] [place] [address], [place] [address] Jan, [facility] [address] [id number] [address] [place] [address], [place] [address] 07 Jan, 2014 [facility] [address] [id number] [address] [place] [address], [place] [address] Jan, [facility] [address] [id number] [address] [place] [address], [place] [address] Jan, [facility] [address] [id number] [address] [place] [address], [place] [address] Jan, [facility] [address] [id number] [address] [place] [address], [place] [address] Dec, [facility] [address] [id number] [address] [place] [address], [place] [address] Dec, [facility] [address] [id number] [address] [place] [address], [place] [address] Dec, [facility] [address] [id number] [address] [place] [address], [place] [address] Dec, [facility] [address] [id number] [address] [place] [address], [place] [address] Dec, [facility] [address] [id number] [address] [place] [address], [place] [address] Dec, [facility] [address] [id number] [address] [place] [address], [place] [address] Dec, [facility] [address] [id number] [address] [place] [address], [place] [address] Nov, [facility] [address] [id number] [address] [place] [address], [place] [address] Nov, [facility] [address] [id number] [address] [place] [address], [place] [address] Nov, [facility] [address] [id number] [address] [place] [address], [place] [address] Nov, [facility] [address] [id number] [address] [place] [address], [place] [address] Nov, [facility] [address] [id number] [address] [place] [address], [place] [address] Nov, [facility] [address] [id number] [address] [place] [address], [place] [address] Nov, [facility] [address] [id number] [address] [place] [address], [place] [address] Oct, [facility] [address] [id number] [address] [place] [address], [place] [address] Oct, [facility] [address] [id number] [address] [place] [address], [place] [address] Sep, [facility] [address] [id number] [address] [place] [address], [place] [address] Sep, [facility] [address] [id number] [address] [place] [address], [place] [address] Sep, [facility] [address] [id number] [address] [place] [address], [place] [address] Sep, [facility] [address] [id number] [address] [place] [address], [place] [address] Sep, [facility] [address] [id number] [address] [place] [address], [place] [address] Sep, [facility] [address] [id number] [address] [place] [address], [place] [address] Sep, [facility] [address] [id number] [address] [place] [address], [place] [address] Sep, [facility] [address] [id number] [address] [place] [address], [place] [address] Sep, [facility] [address] [id number] [address] [place] [address], [place] [address] Sep, [facility] [address] [id number] [address] [place] [address], [place] [address] Aug, [facility] [address] [id number] [address] [place] [address] Aug, [facility] [address] [facility] [id number] [address] [place] [address] Aug, [facility] [address] [facility] [id number] [address] [place] [address] Aug, [facility] [address] [facility] [id number] [address] [place] [address] Aug, [facility] [address] [facility] [id number] [address] [place] [address] Jul, [facility] [address] [facility] [id number] [address] [place] [address] Jul, [facility] [address] [facility] [id number] [address] [place] [address] Jul, [facility] [address] [facility] [id number] [address] [place] [address] Jul, IMMUNIZATIONS No Known Immunizations SOCIAL HISTORY [...]
--- OUTSIDE RECORDS SUMMARY | 2020-03-16 11:54 | XMS REPORT ---
Author Author Ingrid, Swathi Doctor Organization [facility] Address Unknown Phone Unavailable Care Team Providers Care Seafood [employer] Name Role Phone Migration, Doctor Unavailable Unavailable PROBLEMS Type Condition ICD9-CM Code CEO97-BN Code Onset Dates Condition S tatus SNOMED Code Problem Sensorineural hearing loss of right ear H90.41 Active 31242867 Problem Obstructive sleep apnea on CPAP G47.33 Active 06415282 Problem Periodic limb movement sleep disorder G47.61 Active 812842454 Problem Iron deficiency anemia due to chronic blood loss D 50.0 Active 54905526 Problem MACHUCA (nonalcoholic steatohepatitis) K75.81 Active 440900902 Problem Vitamin B12 deficiency E53.8 Active 651790043 Problem Chronic diarrhea K52.9 Active 236 981648 Problem Vitamin D deficiency E55.9 Active 65747731 Problem BMI 50.0-59.9, adult Z68.43 Active 832498716 Problem Fatty liver K76.0 Active 60108232 7 Problem Anxiety F41.9 Active 07690505 Problem Major depressive disorder, recurrent episode, moderate F33.1 Active 162085075 Problem Chronic tension-type headache, intractable G44.221 Active 595101329 Problem Right upper quadrant pain R10.11 Acti ve 19348529 Problem Frequent falls R29.6 Active 91334 2001 Problem Crohn's disease of both small and large intestin e with complication K50.819 Active 71381579 Problem Type 2 diabetes mellitus with other specified complication E11.69 Active 421689944523 Problem Hyperlipidemia, unspecified E78.5 Ac tive 42950411 Problem Mixed stress and urge urinary incontinence N39.46 Active 236784185 Problem Sinusitis chronic, frontal J32.1 Act katlyn 19230960 Problem Seasonal allergies J30.2 Active 4 56701908 Problem Other chronic pain G89.29 Active 8 7986217 Problem Hyperlipidemia E78.5 Active 10663 004 Problem Bilateral primary osteoarthritis of knee M17.0 Active 208189972 Problem Essential hypertension I10 Active 14386342 Problem Acquired hypothyroidism E03.9 Active 750489654 Problem History of hysterectomy for benign disease Z90.710 Active 911222977 Problem Morbid (severe) obesity due to excess calories E66 .01 Active 021683478 Problem Other cirrhosis of liver K74.69 Activ e 67463949 Problem Portal hypertension K76.6 Active 21546030 ALLERGIES No Information ENCOUNTERS Encounter Location Date Diagnosis [place] [address] [facility] [id number] [address] [place] [address] May, Iron deficiency anemia due t o [...] Major depressive disorder, recurrent episode, moderate F33.1 [place] [address] [address] [facility] [id number] [address] [place] [address] May, Hyperlipidemia, unspecified E78.5 ; Other cirrhosis of liver K74.69 and Iron deficiency anemia due to chronic blood loss D50.0 [place] [address] [facility] [id number] [address] [place] [address] February, [facility] [address] [place] [place] [address] February, Acute recurrent pansinusitis J01.41 [facility] [address] [place] [place] [address] February, Acute maxillary sinusitis, recurrence no t specified J01.00 [place] [address] [facility] [id number] [address] [place] [address] Jan, Bilateral primary osteoarthr itis of knee M17.0 ; Morbid obesity E66.01 ; Viral syndrome B34.9 and Atrial dilatation, left I51.7 [place] [address] [facility] [id number] [address] [place] [address] Jan, [place] [address] [facility] [id number] [address] [place] [address] Dec, Trigeminy R00.8 [facility] [address] [place] [id number] [address] [place] [address] Dec, Essential hypertension I10 ; Morbid obesity E66.01 ; Low back pain M54.5 ; Other chronic pain G89.29 and Pain in right knee M25.561 [facility] [id number] [place] [address] Nov, [facility] [address] [place] [id number] [address] [place] [address] Oct, Palpitations R00.2 [place] [address] [place] [id number] [address] [place] [address] Oct, Encounter for Medicare annua l wellness [...] and large intestine with complication K50.819 [facility] [address] [place] [id number] [address] [place] [address] Oct, [facility] [address] [place] [id number] [address] [place] [address] Oct, Crohn's disease of both smal l and large intestine with complication K50.819 [facility] [address] [facility] [id number] [address] [place] [address] Jul, Sinusitis chronic, frontal J 32.1 ; Acute mucoid otitis media of both ears H65.113 ; Seasonal allergies J30.2 and BMI 50.0-59.9, adult Z68.43 [facility] [address] [place] [id number] [address] [place] [address] Jul, Essential hypertension I10 ; Type 2 diabetes mellitus with other specified complication E11.69 ; BMI 50.0-59.9, adult Z68.43 ; Mixed stress and urge urinary incontinence N39.46 and Mid back pain on right side M54.9 [facility] [address] [place] [id number] [address] [place] [address] Jun, Iron deficiency anemia due t o chronic blood loss D50.0 ; Hyperlipidemia E78.5 ; Type 2 diabetes mellitus with other specified complication E11.69 ; Vitamin B12 deficiency E53.8 and Vitamin D deficiency E55.9 [facility] [address] [place] [id number] [place] [address] Jun, Cough R05 and BMI 50.0-59.9, adult Z68.43 [place] [address] [address] Jun, [place] [address] [address] May, Iron deficiency anemia due t o chronic blood loss D50.0 ; Chronic diarrhea K52.9 ; Essential hypertension I10 ; Type 2 diabetes mellitus with other specified complication E11.69 ; Vitamin D deficiency E55.9 ; Colon stricture K56.699 ; Vitamin B12 deficiency E53.8 ; Hyperlipidemia E78.5 and BMI 50.0-59.9, adult Z68.43 [place] [address] [place] [id number] [address] [place] [address] May, [place] [address] [address] Apr, Nonhealing wound of heel S91 .309A and Body mass index (BMI) of 50- 59.9 in adult Z68.43 [place] [address] [place] [id number] [address] [place] [address] Mar, [place] [address] [place] [id number] [address] [place] [address] Mar, BMI 50.0-59.9, adult Z68.43 ; Flank pain R10.9 and Weight loss counseling, encounter for Z71.3 [place] [address] [address] February, [facility] [address] [place] [id number] [address] [place] [address] Jan, [facility] [address] [address] Jan, [facility] [address] [place] [id number] [address] [place] [address] Jan, Diarrhea due to staphylococc us A04.8 and Diarrhea, unspecified type R19.7 [place] [address] [place] [id number] [place] [address] Jan, Acquired hypothyroidism E03. 9 ; Type 2 diabetes mellitus with other specified complication E11.69 ; Hyperlipidemia E78.5 ; Essential hypertension I10 ; Major depressive disorder, recurrent episode, moderate F33.1 and Vitamin D deficiency E55.9 [place] [address] [place] [id number] [place] [address] Jan, Type 2 diabetes mellitus wit h other specified complication E11.69 ; Hyperlipidemia E78.5 ; Essential hypertension I10 ; Acquired hypothyroidism E03.9 ; Major depressive disorder, recurrent episode, moderate F33.1 ; Vitamin D deficiency E55.9 ; Sinus congestion R09.81 and BMI 50.0-59.9, adult Z68.43 [place] [address] [place] [id number] [place] [phone] Dec, [place] [address] [place] [id number] [place] [phone] Sep, Encounter for immunization Z 23 [place] [address] [place] [id number] [place] [address] Sep, [place] [address] [place] [id number] [place] [address] Sep, Vitamin B12 deficiency E53.8 [place] [address] [facility] [id number] [address] [place] [address] Aug, [place] [address] [place] [id number] [place] [address] Aug, BMI 60.0-69.9, adult Z68.44 and Acute non-recurrent maxillary sinusitis J01.00 [place] [address] [place] [id number] [place] [address] Aug, [place] [address] [facility] [id number] [address] [place] [address] 02 Aug, 2017 Medicare annual wellness vis it, initial Z00.00 ; Screening for breast cancer Z12.31 ; BMI 40.0-44.9, adult Z68.41 and Acquired hypothyroidism E03.9 [place] [address] [place] [id number] [address] [place] [address] Jul, Actinic keratosis L57.0 [place] [address] [place] [id number] [address] [place] [address] Jul, Actinic keratosis L57.0 [place] [address] [address] Jul, Type 2 diabetes mellitus wit h other specified complication E11.69 ; Actinic keratosis L57.0 and Hypothyroidism, unspecified E03.9 [place] [id number] [place] [address] Jul, [place] [address] [facility] [id number] [address] [place] [address] Jul, [place] [address] [address] Jul, Vitamin B12 deficiency E53.8 [place] [address] [facility] [id number] [address] [place] [address] Jun, Acquired hypothyroidism E03. 9 and Chronic tension-type headache, intractable G44.221 [place] [address] [facility] [id number] [address] [place] [address] Jun, Back muscle spasm M62.830 an d BMI 50.0-59.9, adult Z68.43 [facility] [address] [facility] [id number] [address] [place] [address] Jun, Vitamin B12 deficiency E53.8 [facility] [address] [place] [id number] [address] [place] [address] Jun, Crohn's disease of both smal l and large intestine with complication K50.819 [place] [address] [place] [id number] [address] [place] [address] Jun, Crohn's disease of both smal l and large intestine with complication K50.819 [place] [address] [place] [id number] [address] [place] [address] May, Hyperlipidemia E78.5 ; Anxie ty F41.9 and Essential hypertension I10 [place] [address] [facility] [id number] [address] [place] [address] May, [place] [address] [place] [id number] [address] [place] [address] May, Encounter for immunization Z 23 and Vitamin B12 deficiency E53.8 [place] [address] [place] [id number] [place] [address] May, [place] [address] [facility] [id number] [address] [place] [address] Apr, [place] [address] [facility] [id number] [address] [place] [address] Apr, [facility] [address] [place] [id number] [address] [place] [address] Apr, Crohn's disease of both smal l and large intestine with complication K50.819 [facility] [address] [facility] [id number] [address] [place] [address] Apr, Vitamin B12 deficiency E53.8 [facility] [address] [facility] [id number] [address] [place] [address] Apr, Crohn's disease of both smal l and large intestine with complication K50.819 and Acute pain of right shoulder M25.511 [place] [address] [facility] [id number] [address] [place] [address] Mar, Type 2 diabetes mellitus wit hout complication E11.9 ; Frequent falls R29.6 and Other chest pain R07.89 [facility] [address] [id number] [address] [place] [address] 14 Mar, 2017 [place] [address] [facility] [id number] [address] [place] [address] Mar, [place] [address] [facility] [id number] [address] [place] [address] Mar, Type 2 diabetes mellitus wit hout complication E11.9 and Blurry vision, bilateral H53.8 [place] [address] [facility] [id number] [address] [place] [address] Mar, Vitamin B12 deficiency E53.8 [place] [address] [facility] [id number] [address] [place] [address] Mar, Crohn's disease of both smal l and large intestine with complication K50.819 [place] [address] [facility] [id number] [address] [place] [address] February, Vitamin B12 deficiency E53.8 [facility] [address] [facility] [id number] [address] [place] [address] Jan, Crohn's disease of both smal l and large intestine with complication K50.819 [place] [address] [facility] [id number] [address] [place] [address] Jan, Crohn's disease of both smal l and large intestine with complication K50.819 [facility] [address] [facility] [id number] [address] [place] [address] Jan, Dark brown-colored urine R82 .99 and Acute suppurative otitis media of right ear without spontaneous rupture of tympanic membrane, recurrence not specified H66.001 [place] [address] [place] [id number] [place] [address] Jan, Encounter for immunization Z 23 [place] [address] [place] [id number] [place] [address] Dec, Crohn's disease of both smal l and large intestine with complication K50.819 and Eustachian tube dysfunction, right H69.81 [place] [address] [address] Dec, [place] [address] [address] Dec, Contusion of right knee, ini tial encounter S80.01XA [place] [address] [address] Dec, [place] [address] [address] Dec, Acute pain of right knee M25 .561 [place] [address] [address] Dec, Iron deficiency anemia due t o chronic blood loss D50.0 [place] [address] [address] Dec, Hyperlipidemia E78.5 ; Type 2 diabetes mellitus without complication E11.9 ; Vitamin B12 deficiency E53.8 ; Essential hypertension I10 ; Obstructive sleep apnea on CPAP G47.33 and Periodic limb movement sleep disorder G47.61 [place] [id number] [place] [address] Nov, Type 2 diabetes mellitus wit hout complication E11.9 ; Vitamin B12 deficiency E53.8 ; Hyperlipidemia E78.5 ; Essential hypertension I10 ; Obstructive sleep apnea on CPAP G47.33 ; Periodic limb movement sleep disorder G47.61 ; Anxiety F41.9 ; Acquired hypothyroidism E03.9 and Chronic tension-type headache, intractable G44.221 [facility] [address] [place] [id number] [address] [place] [address] 10 Nov, 2016 Crohn's disease of both smal l and large intestine with complication K50.819 [facility] [address] [facility] [id number] [address] [place] [address] Nov, Vitamin B12 deficiency E53.8 [facility] [address] [id number] [address] [place] [address] Oct, [place] [address] [facility] [id number] [address] [place] [address] Oct, Vitamin B12 deficiency E53.8 [place] [address] [place] [id number] [address] [place] [address] Sep, [place] [address] [place] [id number] [address] [place] [address] Sep, Vitamin B12 deficiency E53.8 [place] [address] [facility] [id number] [address] [place] [address] Aug, [place] [address] [place] [id number] [address] [place] [address] Aug, Vitamin B12 deficiency E53.8 [place] [address] [facility] [id number] [address] [place] [address] Aug, [facility] [address] [place] [id number] [place] [address] Jul, Elevated ALT measurement R74 .0 [place] [address] [facility] [id number] [address] [place] [address] Jul, Hematuria R31.9 ; Acute righ t-sided thoracic back pain M54.6 ; Major depressive disorder, recurrent episode, moderate F33.1 and Elevated ALT measurement R74.0 [place] [address] [facility] [id number] [address] [place] [address] Jul, [place] [address] [address] Jul, Elevated ALT measurement R74 .0 [place] [address] [address] 14 Jul, 2016 Iron deficiency anemia due t o chronic blood loss D50.0 [place] [address] [address] Jul, Type 2 diabetes mellitus wit hout complication E11.9 ; Acquired hypothyroidism E03.9 ; Iron deficiency anemia due to chronic blood loss D50.0 ; Hyperlipidemia E78.5 and Essential hypertension I10 [place] [address] [address] Jun, [place] [address] [address] Jun, Vitamin B12 deficiency E53.8 [place] [address] [address] Jun, Type 2 diabetes mellitus wit hout complication E11.9 ; Acquired hypothyroidism E03.9 ; Iron deficiency anemia due to chronic blood loss D50.0 ; Hyperlipidemia E78.5 ; Essential hypertension I10 ; Chronic tension-type headache, intractable G44.221 ; Pulsatile tinnitus, bilateral H93.13 ; Obstructive sleep apnea on CPAP G47.33 and Major depressive disorder, recurrent episode, moderate F33.1 [place] [address] [address] May, Vitamin B12 deficiency E53.8 [place] [address] [place] [id number] [place] [address] May, [place] [address] [address] Apr, Vitamin B12 deficiency E53.8 [place] [address] [address] Apr, [place] [address] [facility] [id number] [address] [place] [address] 28 Mar, 2016 Chronic tension-type headach e, intractable G44.221 and Major depressive disorder, recurrent episode, moderate F33.1 [facility] [address] [facility] [id number] [address] [place] [address] 14 Mar, 2016 [address] B12 [address].8 [facility] [address] [facility] [id number] [address] [place] [address] February, [facility] [address] [facility] [id number] [address] [place] [address] February, Vitamin B12 deficiency E53.8 [facility] [address] [facility] [id number] [address] [place] [address] February, [facility] [address] [facility] [id number] [address] [place] [address] 27 Jan, [address] [facility] [address] [facility] [id number] [address] [place] [address] 22 Jan, 2016 Type 2 diabetes mellitus wit hout complication E11.9 and Essential hypertension I10 [facility] [address] [facility] [id number] [address] [place] [address] 15 Jan, [address] [facility] [address] [facility] [id number] [address] [place] [address] 13 Jan, 2016 [facility] [address] [facility] [id number] [address] [place] [address] Jan, Chronic diarrhea K52.9 [facility] [address] [facility] [id number] [address] [place] [address] Jan, [facility] [address] [facility] [id number] [address] [place] [address] 12 Jan, [address] [facility] [address] [facility] [id number] [address] [place] [address] 07 Jan, 2016 Vitamin B12 deficiency E53.8 [place] [address] [facility] [id number] [address] [place] [address] 07 Jan, 2016 Dysuria R30.0 and Iron defic iency anemia due to chronic blood loss D50.0 [facility] [address] [facility] [id number] [address] [place] [address] 05 Jan, [address] [facility] [address] [address] 04 Jan, 2016 [facility] [address] [address] 15 Dec, 2015 [place] [address] [address] 11 Dec, 2015 Iron deficiency anemia due t o chronic blood loss D50.0 [facility] [address] [address] 10 Dec, 2015 Dysuria R30.0 ; Fatigue R53. 83 ; Hyperlipidemia E78.[address] [facility] [address] [place] [id number] [address] [place] [address] Dec, [facility] [address] [address] 02 Dec, 2015 [facility] [address] [place] [id number] [address] [place] [address] 10 Nov, 2015 Vitamin B12 [address].8 [facility] [id number] [place] [address] Oct, Vitamin B12 deficiency E53.8 [facility] [address] [place] [id number] [place] [address] Oct, [facility] [address] [facility] [id number] [address] [place] [address] 09 Oct, [address] [facility] [address] [address] Oct, Essential hypertension I10 ; Type 2 diabetes mellitus without complication E11.9 ; Vitamin B12 deficiency E53.8 ; Acquired hypothyroidism E03.9 ; Iron deficiency anemia due to chronic blood loss D50.[address] [facility] [address] [place] [id number] [place] [address] Sep, Essential hypertension I10 ; Vitamin B12 deficiency E53.8 ; Iron deficiency anemia due to chronic blood loss D50.0 ; Type 2 diabetes mellitus without complication E11.9 ; Hyperlipidemia E78.5 and Acquired hypothyroidism E03.9 [facility] [address] [facility] [id number] [address] [place] [address] Sep, [facility] [address] [address] Sep, [facility] [address] [address] Jul, [facility] [address] [address] Jun, [facility] [address] [place] [id number] [place] [address] Jun, [facility] [address] [place] [id number] [place] [address] Jun, Hyperlipidemia 272.4 ; Iron deficiency anemia 280.9 ; Hypothyroidism 244.9 ; Diabetes mellitus without mention of complication, type II or unspecified type, not stated as uncontrolled 250.[address] [facility] [address] [place] [id number] [place] [address] Jun, [facility] [address] [place] [id number] [place] [address] Jun, [facility] [address] [place] [id number] [place] [address] May, Hyperlipidemia 272.4 [facility] [address] [place] [id number] [place] [address] May, [facility] [address] [place] [id number] [place] [address] May, [facility] [address] [id number] [address] [place] [address] Apr, Diabetes mellitus without me ntion of complication, type II or unspecified type, not stated as uncontrolled 250.00 ; Hypothyroidism 244.9 ; Hyperlipidemia 272.4 ; Pain in joint, lower leg 719.46 and RUQ pain 789.01 [facility] [address] [id number] [address] [place] [address] Mar, [address] [facility] [address] [id number] [address] [place] [address] Mar, [facility] [address] [facility] [id number] [address] [place] [address] Mar, [facility] [address] [facility] [id number] [address] [place] [address] Mar, Hematochezia [address] [facility] [address] [id number] [address] [place] [address] February, Sinusitis [address] [facility] [address] [facility] [id number] [address] [place] [address] February, [facility] [address] [facility] [id number] [address] [place] [address] Jan, [facility] [address] [id number] [address] [place] [address] Jan, [facility] [address] [facility] [id number] [address] [place] [id number] Dec, [facility] [address] [id number] [address] [place] [address] Dec, [facility] [address] [id number] [address] [place] [address] Dec, [facility] [address] [id number] [address] [place] [address] Dec, [facility] [address] [id number] [address] [place] [address], [place] [address] Dec, [facility] [address] [id number] [address] [place] [address], [place] [address] Dec, [facility] [address] [id number] [address] [place] [address], [place] [address] Dec, [facility] [address] [id number] [address] [place] [address], [place] [address] Dec, [facility] [address] [id number] [address] [place] [address], [place] [address] Dec, [facility] [address] [id number] [address] [place] [address], [place] [address] Dec, [facility] [address] [id number] [address] [place] [address], [place] [address] Dec, [facility] [address] [id number] [address] [place] [address], [place] [address] Nov, [facility] [address] [id number] [address] [place] [address], [place] [address] Nov, [facility] [address] [id number] [address] [place] [address], [place] [address] Nov, [facility] [address] [id number] [address] [place] [address], [place] [address] Nov, [facility] [address] [id number] [address] [place] [address], [place] [address] Oct, [facility] [address] [id number] [address] [place] [address], [place] [address] Oct, [facility] [address] [id number] [address] [place] [address], [place] [address] Oct, [facility] [address] [id number] [address] [place] [address], [place] [address] Oct, [facility] [address] [id number] [address] [place] [address], [place] [address] Oct, [facility] [address] [id number] [address] [place] [address], [place] [address] Oct, [facility] [address] [id number] [address] [place] [address], [place] [address] Sep, [facility] [address] [id number] [address] [place] [address], [place] [address] Sep, [facility] [address] [id number] [address] [place] [address], [place] [address] Sep, [facility] [address] [id number] [address] [place] [address], [place] [address] Sep, [facility] [address] [id number] [address] [place] [address], [place] [address] Sep, [facility] [address] [id number] [address] [place] [address], [place] [address] Sep, [facility] [address] [id number] [address] [place] [address], [place] [address] Sep, [facility] [address] [id number] [address] [place] [address], [place] [address] Aug, [facility] [address] [id number] [address] [place] [address], [place] [address] Aug, [facility] [address] [id number] [address] [place] [address], [place] [address] Aug, [facility] [address] [id number] [address] [place] [address], [place] [address] Aug, [facility] [address] [id number] [address] [place] [address], [place] [address] Aug, [facility] [address] [id number] [address] [place] [address], [place] [address] Aug, [facility] [address] [id number] [address] [place] [address], [place] [address] Aug, [facility] [address] [id number] [address] [place] [address], [place] [address] Aug, [facility] [address] [id number] [address] [place] [address], [place] [address] Aug, [facility] [address] [id number] [address] [place] [address], [place] [address] Aug, [facility] [address] [id number] [address] [place] [address], [place] [address] Aug, [facility] [address] [id number] [address] [place] [address], [place] [address] Aug, [facility] [address] [id number] [address] [place] [address], [place] [address] Aug, [facility] [address] [id number] [address] [place] [address], [place] [address] Aug, [facility] [address] [id number] [address] [place] [address], [place] [address] Jul, [facility] [address] [id number] [address] [place] [address], [place] [address] Jul, [facility] [address] [id number] [address] [place] [address], [place] [address] Jul, [facility] [address] [id number] [address] [place] [address], [place] [address] Jul, [facility] [address] [id number] [address] [place] [address] Jun, [facility] [address] [id number] [address] [place] [address], [place] [address] 24 Jun, 2014 [facility] [address] [id number] [address] [place] [address], [place] [address] Jun, [facility] [address] [id number] [address] [place] [address], [place] [address] Jun, [facility] [address] [id number] [facility] [address] 19 Jun, 2013 [facility] [address] [id number] [facility] [address] 19 Jun, 2013 [facility] [address] [id number] [facility] [address] 11 Jun, 2013 [facility] [address] [id number] [address] [place] [address], [place] [address] 11 Jun, 2013 [facility] [address] [id number] [facility] [address] 11 Jun, 2013 [facility] [address] [id number] [address] [place] [address], [place] [address] 11 Jun, 2013 [facility] [address] [id number] [address] [place] [address], [place] [address] 10 Jun, 2013 [facility] [address] [id number] [address] [place] [address], [place] [address] 10 Jun, 2013 [facility] [address] [id number] [address] [place] [address], [place] [address] 09 Jun, 2013 [facility] [address] [id number] [address] [place] [address], [place] [address] 09 Jun, 2013 [facility] [address] [id number] [address] [place] [address], [place] [address] 14 May, 2014 [facility] [address] [id number] [address] [place] [address], [place] [address] 14 May, 2014 [facility] [address] [id number] [address] [place] [address], [place] [address] May, [facility] [address] [id number] [address] [place] [address], [place] [address] May, [facility] [address] [id number] [address] [place] [address], [place] [address] May, [facility] [address] [id number] [address] [place] [address], [place] [address] May, [facility] [address] [id number] [facility] [address] Apr, [facility] [address] [id number] [facility] [address] Apr, [facility] [address] [id number] [facility] [address] Apr, [facility] [address] [id number] [facility] [address] Apr, [facility] [address] [id number] [facility] [address] Apr, [facility] [address] [id number] [address] [place] [address], [place] [address] Apr, [facility] [address] [id number] [address] [place] [address], [place] [address] Apr, [facility] [address] [id number] [address] [place] [address], [place] [address] Apr, [facility] [address] [id number] [address] [place] [address], [place] [address] Apr, [facility] [address] [id number] [address] [place] [address], [place] [address] Apr, [facility] [address] [id number] [address] [place] [address], [place] [address] Apr, [facility] [address] [id number] [address] [place] [address], [place] [address] Mar, [facility] [address] [id number] [address] [place] [address], [place] [address] Mar, [facility] [address] [id number] [address] [place] [address], [place] [address] Mar, [facility] [address] [id number] [address] [place] [address], [place] [address] Mar, [facility] [address] [id number] [address] [place] [address], [place] [address] February, [facility] [address] [id number] [address] [place] [address], [place] [address] February, [facility] [address] [id number] [address] [place] [address], [place] [address] Jan, [facility] [address] [id number] [address] [place] [address], [place] [address] Jan, [facility] [address] [place] [id number] Jan, [facility] [address] [id number] [address] [place] [address], [place] [address] Jan, [facility] [address] [id number] [address] [place] [address], [place] [address] Jan, [facility] [address] [id number] [address] [place] [address], [place] [address] Jan, [facility] [address] [id number] [address] [place] [address], [place] [address] Jan, [facility] [address] [id number] [address] [place] [address], [place] [address] Jan, [facility] [address] [id number] [address] [place] [address], [place] [address] Jan, [facility] [address] [id number] [address] [place] [address], [place] [address] Jan, [facility] [address] [id number] [address] [place] [address], [place] [address] Jan, [facility] [address] [id number] [address] [place] [address], [place] [address] Jan, [facility] [address] [id number] [address] [place] [address], [place] [address] Jan, [facility] [address] [id number] [address] [place] [address], [place] [address] Jan, [facility] [address] [id number] [address] [place] [address], [place] [address] 07 Jan, 2014 [facility] [address] [id number] [address] [place] [address], [place] [address] Jan, [facility] [address] [id number] [address] [place] [address], [place] [address] Jan, [facility] [address] [id number] [address] [place] [address], [place] [address] 18 Dec, 2013 [facility] [address] [id number] [address] [place] [address], [place] [address] 18 Dec, 2013 [facility] [address] [id number] [address] [place] [address], [place] [address] Dec, [facility] [address] [id number] [address] [place] [address], [place] [address] Dec, [facility] [address] [id number] [address] [place] [address], [place] [address] Dec, [facility] [address] [id number] [address] [place] [address], [place] [address] Dec, [facility] [address] [id number] [address] [place] [address], [place] [address] Dec, [facility] [address] [id number] [address] [place] [address], [place] [address] Nov, [facility] [address] [id number] [address] [place] [address], [place] [address] Nov, [facility] [address] [id number] [address] [place] [address], [place] [address] Nov, [facility] [address] [id number] [address] [place] [address], [place] [address] Nov, [facility] [address] [id number] [address] [place] [address], [place] [address] Nov, [facility] [address] [id number] [address] [place] [address], [place] [address] Nov, [facility] [address] [id number] [address] [place] [address], [place] [address] Nov, [facility] [address] [id number] [address] [place] [address], [place] [address] Oct, [facility] [address] [id number] [address] [place] [address], [place] [address] Oct, [facility] [address] [id number] [address] [place] [address], [place] [address] Sep, [facility] [address] [id number] [address] [place] [address], [place] [address] Sep, [facility] [address] [id number] [address] [place] [address], [place] [address] Sep, [facility] [address] [id number] [address] [place] [address], [place] [address] Sep, [facility] [address] [id number] [address] [place] [address], [place] [address] Sep, [facility] [address] [id number] [address] [place] [address], [place] [address] Sep, [facility] [address] [id number] [address] [place] [address], [place] [address] Sep, [facility] [address] [id number] [address] [place] [address], [place] [address] Sep, [facility] [address] [id number] [address] [place] [address], [place] [address] Sep, [facility] [address] [id number] [address] [place] [address], [place] [address] Sep, [facility] [address] [id number] [address] [place] [address], [place] [address] Aug, [facility] [address] [id number] [address] [place] [address], [place] [address] Aug, [facility] [address] [id number] [address] [place] [address] Aug, [facility] [address] [id number] [address] [place] [address] Aug, [facility] [address] [id number] [address] [place] [id number] Aug, [facility] [address] [facility] [id number] [address] [place] [address] Jul, [facility] [address] [facility] [id number] [address] [place] [address] Jul, [facility] [address] [facility] [id number] [address] [place] [address] Jul, [facility] [address] [facility] [id number] [address] [place] [address] Jul, IMMUNIZATIONS No Known Immunizations SOCIAL HISTORY Never Assessed REASON FOR VISIT PLAN OF CARE VITAL SIGNS Blood pressure systolic 124 mmHg 2014-05-02 Blood pressure diastolic 68 mmHg 2014-05-02 MEDICATIONS Unknown Medications RESULTS No Results PROCEDURES Procedure Date Ordered Result Body Site X-RAY EXAM OF KNEE, 1 OR 2 May 02, 2014 INSTRUCTIONS MEDICATIONS ADMINISTERED No Known Medications [...]
--- OUTSIDE RECORDS SUMMARY | 2020-03-16 11:55 | XMS REPORT ---
Author Author Swathi Benavides Organization [facility] Address [address] [place] [address] Care Team Providers Care Meter Attendant Name Role Phone WIL Benavides Unavailable PROBLEMS Type Condition ICD9-CM Code [id number] Code Onset Dates Condition S tatus SNOMED Code Problem Sensorineural hearing loss of right ear H90.41 Active 80632905 Problem Obstructive sleep apnea on CPAP G47.33 Active 25347776 Problem Periodic limb movement sleep disorder G47.61 Active 553971613 Problem Iron deficiency anemia due to chronic blood loss D 50.0 Active 75882564 Problem MACHUCA (nonalcoholic steatohepatitis) K75.81 Active 872574869 Problem Vitamin B12 deficiency E53.8 Active 655074987 Problem Chronic diarrhea K52.9 Active 236 955833 Problem Vitamin D deficiency E55.9 Active 16840224 Problem BMI 50.0-59.9, adult Z68.43 Active 500160601 Problem Fatty liver K76.0 Active 19125815 7 Problem Anxiety F41.9 Active 04936340 Problem Major depressive disorder, recurrent episode, moderate F33.1 Active 485245222 Problem Chronic tension-type headache, intractable G44.221 Active 343231097 Problem Right upper quadrant pain R10.11 Acti ve 22363294 Problem Frequent falls R29.6 Active 39990 2002 Problem Crohn's disease of both small and large intestin e with complication K50.819 Active 91683261 Problem Type 2 diabetes mellitus with other specified complication E11.69 Active 597592661193 Problem Hyperlipidemia, unspecified E78.5 Ac tive 11067602 Problem Mixed stress and urge urinary incontinence N39.46 Active 743585914 Problem Sinusitis chronic, frontal J32.1 Act katlyn 47269636 Problem Seasonal allergies J30.2 Active 4 06836858 Problem Other chronic pain G89.29 Active 8 6688662 Problem Hyperlipidemia E78.5 Active 73560 004 Problem Bilateral primary osteoarthritis of knee M17.0 Active 445038609 Problem Essential hypertension I10 Active 74572624 Problem Acquired hypothyroidism E03.9 Active 247879061 Problem History of hysterectomy for benign disease Z90.710 Active 520464657 Problem Morbid (severe) obesity due to excess calories E66 .01 Active 401336554 Problem Other cirrhosis of liver K74.69 Activ e 10968938 Problem Portal hypertension K76.6 Active 27855518 ALLERGIES No Information ENCOUNTERS Encounter Location Date Diagnosis [place] [address] [place] [id number] [place] [address] May, Iron deficiency anemia due t o [...] Major depressive disorder, recurrent episode, moderate F33.1 [place] [address] [place] [id number] [place] [address] May, Hyperlipidemia, unspecified E78.5 ; Other cirrhosis of liver K74.69 and Iron deficiency anemia due to chronic blood loss D50.0 [place] [address] [place] [id number] [place] [address] February, [facility] [address] [facility] [place] [address] February, Acute recurrent pansinusitis J01.41 [facility] [address] [place] [address] February, Acute maxillary sinusitis, recurrence no t specified J01.00 [place] [address] [place] [id number] [place] [address] Jan, Bilateral primary osteoarthr itis of knee M17.0 ; Morbid obesity E66.01 ; Viral syndrome B34.9 and Atrial dilatation, left I51.7 [place] [address] [place] [id number] [place] [address] Jan, [facility] [address] [facility] [id number] [address] [place] [address] Dec, Trigeminy R00.8 [place] [address] [place] [id number] [place] [address] Dec, Essential hypertension I10 ; Morbid obesity E66.01 ; Low back pain M54.5 ; Other chronic pain G89.29 and Pain in right knee M25.561 [facility] [address] [place] [id number] [place] [address] Nov, [place] [address] [address] Oct, Palpitations R00.2 [place] [address] [place] [id number] [place] [address] Oct, Encounter for Medicare annua l wellness [...] small and large intestine with complication K50.819 [facility] [address] [facility] [id number] [address] [place] [address] Oct, [facility] [address] [place] [id number] [place] [address] Oct, Crohn's disease of both smal l and large intestine with complication K50.819 [facility] [address] [facility] [id number] [address] [place] [address] Jul, Sinusitis chronic, frontal J 32.1 ; Acute mucoid otitis media of both ears H65.113 ; Seasonal allergies J30.2 and BMI 50.0-59.9, adult Z68.43 [facility] [address] [place] [id number] [place] [address] Jul, Essential hypertension I10 ; Type 2 diabetes mellitus with other specified complication E11.69 ; BMI 50.0-59.9, adult Z68.43 ; Mixed stress and urge urinary incontinence N39.46 and Mid back pain on right side M54.9 [facility] [address] [place] [id number] [place] [address] Jun, Iron deficiency anemia due t o chronic blood loss D50.0 ; Hyperlipidemia E78.5 ; Type 2 diabetes mellitus with other specified complication E11.69 ; Vitamin B12 deficiency E53.8 and Vitamin D deficiency E55.[address] [facility] [address] [place] [id number] [place] [address] Jun, Cough R05 and BMI 50.0-59.9, adult Z68.43 [place] [address] [place] [address] Jun, [place] [address] [place] [id number] [place] [address] May, Iron deficiency anemia due t o chronic blood loss D50.0 ; Chronic diarrhea K52.9 ; Essential hypertension I10 ; Type 2 diabetes mellitus with other specified complication E11.69 ; Vitamin D deficiency E55.9 ; Colon stricture K56.699 ; Vitamin B12 deficiency E53.8 ; Hyperlipidemia E78.5 and BMI 50.0-59.9, adult Z68.43 [facility] [address] [place] [id number] [place] [address] May, [place] [address] [place] [id number] [place] [address] Apr, Nonhealing wound of heel S91 .309A and Body mass index (BMI) of 50- 59.9 in adult Z68.43 [place] [address] [place] [id number] [place] [address] Mar, [place] [id number] [place] [id number] [place] [address] Mar, BMI 50.0-59.9, adult Z68.43 ; Flank pain R10.9 and Weight loss counseling, encounter for Z71.3 [place] [address] [address] February, [place] [address] [address] Jan, [place] [address] [address] Jan, [facility] [address] [address] Jan, Diarrhea due to staphylococc us A04.8 and Diarrhea, unspecified type R19.7 [place] [address] [address] Jan, Acquired hypothyroidism E03. 9 ; Type 2 diabetes mellitus with other specified complication E11.69 ; Hyperlipidemia E78.5 ; Essential hypertension I10 ; Major depressive disorder, recurrent episode, moderate F33.1 and Vitamin D deficiency E55.9 [place] [address] [place] [id number] [place] [address] Jan, Type 2 diabetes mellitus wit h other specified complication E11.69 ; Hyperlipidemia E78.5 ; Essential hypertension I10 ; Acquired hypothyroidism E03.9 ; Major depressive disorder, recurrent episode, moderate F33.1 ; Vitamin D deficiency E55.9 ; Sinus congestion R09.81 and BMI 50.0-59.9, adult Z68.43 [place] [address] [place] [id number] [place] [address] Dec, [place] [address] [address] Sep, Encounter for immunization Z 23 [place] [address] [address] Sep, [facility] [address] [facility] [id number] [address] [place] [address] Sep, Vitamin B12 deficiency E53.8 [facility] [address] [facility] [id number] [address] [place] [address] Aug, [place] [address] [facility] [id number] [address] [place] [address] Aug, BMI 60.0-69.9, adult Z68.44 and Acute non-recurrent maxillary sinusitis J01.00 [facility] [address] [facility] [id number] [address] [place] [address] Aug, [place] [address] [place] [id number] [place] [address] Aug, Medicare annual wellness vis it, initial Z00.00 ; Screening for breast cancer Z12.31 ; BMI 40.0-44.9, adult Z68.41 and Acquired hypothyroidism E03.9 [place] [address] [facility] [id number] [address] [place] [address] Jul, Actinic keratosis L57.0 [place] [address] [facility] [id number] [address] [place] [address] Jul, Actinic keratosis L57.0 [place] [address] [facility] [id number] [address] [place] [address] Jul, Type 2 diabetes mellitus wit h other specified complication E11.69 ; Actinic keratosis L57.0 and Hypothyroidism, unspecified E03.9 [place] [id number] [facility] [id number] [address] [place] [address] Jul, [place] [address] [facility] [id number] [address] [place] [address] Jul, [place] [address] [facility] [id number] [address] [place] [address] Jul, Vitamin B12 deficiency E53.8 [place] [address] [facility] [id number] [address] [place] [address] Jun, Acquired hypothyroidism E03. 9 and Chronic tension-type headache, intractable G44.221 [facility] [address] [facility] [id number] [address] [place] [address] Jun, Back muscle spasm M62.830 an d BMI 50.0-59.9, adult Z68.43 [facility] [address] [place] [id number] [place] [address] Jun, Vitamin B12 deficiency E53.8 [facility] [address] [facility] [id number] [address] [place] [address] Jun, Crohn's disease of both smal l and large intestine with complication K50.819 [facility] [address] [place] [id number] [place] [address] Jun, Crohn's disease of both smal l and large intestine with complication K50.819 [place] [address] [place] [address] May, Hyperlipidemia E78.5 ; Anxie ty F41.9 and Essential hypertension I10 [place] [id number] [place] [id number] [place] [address] May, [place] [address] [place] [id number] [place] [address] May, Encounter for immunization Z 23 and Vitamin B12 deficiency E53.8 [facility] [address] [facility] [id number] [address] [place] [id number] May, [facility] [address] [place] [id number] [place] [id number] Apr, [facility] [address] [place] [id number] [place] [id number] Apr, [facility] [address] [place] [id number] [place] [address] Apr, Crohn's disease of both smal l and large intestine with complication K50.819 [place] [address] [facility] [id number] [address] [place] [address] Apr, Vitamin B12 deficiency E53.8 [place] [address] [facility] [id number] [address] [place] [address] Apr, Crohn's disease of both smal l and large intestine with complication K50.819 and Acute pain of right shoulder M25.511 [place] [address] [facility] [id number] [address] [place] [address] Mar, Type 2 diabetes mellitus wit hout complication E11.9 ; Frequent falls R29.6 and Other chest pain R07.89 [place] [address] [facility] [id number] [address] [place] [phone] Mar, [place] [address] [facility] [id number] [address] [place] [address] Mar, [place] [address] [facility] [id number] [address] [place] [address] Mar, Type 2 diabetes mellitus wit hout complication E11.9 and Blurry vision, bilateral H53.8 [place] [address] [facility] [id number] [address] [place] [address] Mar, Vitamin B12 deficiency E53.8 [place] [address] [facility] [id number] [address] [place] [address] Mar, Crohn's disease of both smal l and large intestine with complication K50.819 [place] [address] [facility] [id number] [address] [place] [address] February, Vitamin B12 deficiency E53.8 [place] [address] [facility] [id number] [address] [place] [address] Jan, Crohn's disease of both smal l and large intestine with complication K50.819 [place] [address] [facility] [id number] [address] [place] [address] Jan, Crohn's disease of both smal l and large intestine with complication K50.819 [facility] [address] [facility] [id number] [address] [place] [address] Jan, Dark brown-colored urine R82 .99 and Acute suppurative otitis media of right ear without spontaneous rupture of tympanic membrane, recurrence not specified H66.001 [facility] [address] [place] [id number] [place] [address] Jan, Encounter for immunization Z 23 [facility] [address] [place] [id number] [place] [address] Dec, Crohn's disease of both smal l and large intestine with complication K50.819 and Eustachian tube dysfunction, right H69.81 [facility] [address] [place] [id number] [place] [address] Dec, [facility] [address] [address] Dec, Contusion of right knee, ini tial encounter S80.01XA [facility] [address] [place] [address] Dec, [facility] [address] [address] Dec, Acute pain of right knee M25 .561 [facility] [address] [place] [id number] [place] [address] Dec, Iron deficiency anemia due t o chronic blood loss D50.0 [facility] [address] [place] [id number] [place] [address] Dec, Hyperlipidemia E78.5 ; Type 2 diabetes mellitus without complication E11.9 ; Vitamin B12 deficiency E53.8 ; Essential hypertension I10 ; Obstructive sleep apnea on CPAP G47.33 and Periodic limb movement sleep disorder G47.61 [facility] [address] [place] [id number] [address] [place] [address] Nov, Type 2 diabetes mellitus wit hout complication E11.9 ; Vitamin B12 deficiency E53.8 ; Hyperlipidemia E78.5 ; Essential hypertension I10 ; Obstructive sleep apnea on CPAP G47.33 ; Periodic limb movement sleep disorder G47.61 ; Anxiety F41.9 ; Acquired hypothyroidism E03.9 and Chronic tension-type headache, intractable G44.221 [facility] [address] [facility] [id number] [address] [place] [address] 10 Nov, 2016 Crohn's disease of both smal l and large intestine with complication K50.819 [facility] [address] [id number] [address] [place] [address] 10 Nov, 2016 Vitamin B12 deficiency E53.8 [place] [address] [facility] [id number] [address] [place] [address] Oct, [place] [address] [facility] [id number] [address] [place] [address] Oct, Vitamin B12 deficiency E53.8 [place] [address] [facility] [id number] [address] [place] [address] Sep, [place] [address] [facility] [id number] [address] [place] [address] Sep, Vitamin B12 deficiency E53.8 [place] [address] [facility] [id number] [address] [place] [address] Aug, [place] [address] [facility] [id number] [address] [place] [address] Aug, Vitamin B12 deficiency E53.8 [place] [address] [id number] [address] [place] [address] Aug, [place] [address] [facility] [id number] [address] [place] [address] 24 Jul, 2016 Elevated ALT measurement R74 .0 [place] [address] [facility] [id number] [address] [place] [address] Jul, Hematuria R31.9 ; Acute righ t-sided thoracic back pain M54.6 ; Major depressive disorder, recurrent episode, moderate F33.1 and Elevated ALT measurement R74.0 [place] [id number] [facility] [id number] [address] [place] [address] Jul, [place] [address] [facility] [id number] [address] [place] [address] 19 Jul, 2016 Elevated ALT measurement R74 .0 [place] [address] [facility] [id number] [address] [place] [address] 14 Jul, 2016 Iron deficiency anemia due t o chronic blood loss D50.0 [place] [address] [facility] [id number] [address] [place] [address] 14 Jul, 2016 Type 2 diabetes mellitus wit hout complication E11.9 ; Acquired hypothyroidism E03.9 ; Iron deficiency anemia due to chronic blood loss D50.0 ; Hyperlipidemia E78.5 and Essential hypertension I10 [place] [address] [place] [id number] [address] [place] [address] Jun, [place] [address] [facility] [id number] [address] [place] [address] Jun, Vitamin B12 deficiency E53.8 [place] [address] [facility] [id number] [address] [place] [phone] 16 Jun, 2016 Type 2 diabetes mellitus wit hout complication E11.9 ; Acquired hypothyroidism E03.9 ; Iron deficiency anemia due to chronic blood loss D50.0 ; Hyperlipidemia E78.5 ; Essential hypertension I10 ; Chronic tension-type headache, intractable G44.221 ; Pulsatile tinnitus, bilateral H93.13 ; Obstructive sleep apnea on CPAP G47.33 and Major depressive disorder, recurrent episode, moderate F33.1 [place] [address] [facility] [id number] [address] [place] [address] May, Vitamin B12 deficiency E53.8 [place] [address] [facility] [id number] [address] [place] [address] May, [place] [address] [facility] [id number] [address] [place] [address] Apr, Vitamin B12 deficiency E53.8 [place] [address] [facility] [id number] [address] [place] [phone] 05 Apr, 2016 [facility] [address] [facility] [id number] [address] [place] [address] Mar, Chronic tension-type headach e, intractable G44.221 and Major depressive disorder, recurrent episode, moderate F33.1 [facility] [address] [facility] [id number] [address] [place] [address] Mar, Vitamin B12 deficiency E53.8 [facility] [address] [facility] [id number] [address] [place] [address] February, [facility] [address] [facility] [id number] [address] [place] [address] February, Vitamin B12 deficiency E53.8 [facility] [address] [facility] [id number] [address] [place] [phone] February, [facility] [address] [facility] [id number] [address] [place] [address] Jan, Dysuria R30.0 [facility] [address] [facility] [id number] [address] [place] [address] Jan, Type 2 diabetes mellitus wit hout complication E11.9 and Essential hypertension I10 [facility] [address] [facility] [id number] [address] [place] [phone] 15 Jan, 2016 Chronic diarrhea K52.9 [facility] [place] [address] [facility] [id number] [address] [place] [phone] Jan, [facility] [place] [address] [facility] [id number] [address] [place] [phone] Jan, Chronic diarrhea K52.9 [facility] [place] [address] [facility] [id number] [address] [place] [phone] Jan, [facility] [place] [address] [facility] [id number] [address] [place] [phone] Jan, Dysuria R30.0 [facility] [place] [address] [place] [id number] [address] [place] [phone] 07 Jan, 2016 Vitamin B12 deficiency E53.8 [facility] [place] [address] [phone] 07 Jan, 2016 Dysuria R30.0 and Iron defic iency anemia due to chronic blood loss D50.0 [facility] [address] [place] [phone] 05 Jan, 2016 Dysuria R30.0 [facility] [id number] [place] [phone] 04 Jan, 2016 [facility] [address] [id number] 15 Dec, 2015 [facility] [address] [address] Dec, Iron deficiency anemia due t o chronic blood loss D50.0 [facility] [address] [id number] [address] [place] [address] Dec, Dysuria R30.0 ; Fatigue R53. 83 ; Hyperlipidemia E78.5 and Diarrhea R19.7 [facility] [id number] [place] [phone] Dec, [facility] [id number] [place] [phone] Dec, [facility] [id number] [place] [phone] Nov, Vitamin B12 deficiency E53.8 [facility] [id number] [place] [phone] Oct, Vitamin B12 deficiency E53.8 [facility] [address] [id number] [place] [phone] Oct, [facility] [address] [facility] [id number] [address] [place] [phone] 09 Adi, 2016 Headache R51 [facility] [address] [facility] [id number] [address] [place] [phone] 07 Oct, 2015 Essential hypertension I10 ; Type 2 diabetes mellitus without complication E11.9 ; Vitamin B12 deficiency E53.8 ; Acquired hypothyroidism E03.9 ; Iron deficiency anemia due to chronic blood loss D50.0 and Hyperlipidemia E78.5 [facility] [address] [facility] [id number] [address] [place] [phone] 17 Sep, 2015 Essential hypertension I10 ; Vitamin B12 deficiency E53.8 ; Iron deficiency anemia due to chronic blood loss D50.0 ; Type 2 diabetes mellitus without complication E11.9 ; Hyperlipidemia E78.5 and Acquired hypothyroidism E03.9 [facility] [address] [facility] [id number] [address] Sep, [facility] [id number] [place] [phone] Sep, [facility] [address] [address] Jul, [facility] [address] [id number] [address] [place] [phone] Jun, [facility] [address] [address] Jun, [facility] [id number] [place] [phone] Jun, Hyperlipidemia 272.4 ; Iron deficiency anemia 280.9 ; Hypothyroidism 244.9 ; Diabetes mellitus without mention of complication, type II or unspecified type, not stated as uncontrolled 250.00 and Hypertension 401.9 [facility] [address] [facility] [id number] [address] [place] [phone] Jun, [facility] [address] [id number] [address] [place] [phone] Jun, [facility] [address] [id number] [address] [place] [phone] May, Hyperlipidemia 272.4 [facility] [address] [id number] [address] [place] [phone] May, [facility] [address] [id number] [address] [place] [phone] May, [facility] [address] [facility] [id number] [address] [place] [address] Apr, Diabetes mellitus without me ntion of complication, type II or unspecified type, not stated as uncontrolled 250.00 ; Hypothyroidism 244.9 ; Hyperlipidemia 272.4 ; Pain in joint, lower leg 719.46 and RUQ pain 789.01 [facility] [address] [id number] [address] [place] [phone] Mar, Sinusitis 473.9 [facility] [address] [facility] [id number] [address] [place] [phone] Mar, [facility] [address] [id number] [address] [place] [id number] Mar, [facility] [address] [id number] [address] [place] [address] Mar, Hematochezia 578.1 [facility] [address] [facility] [id number] [address] [place] [phone] February, Sinusitis 473.9 [facility] [address] [facility] [id number] [address] [place] [phone] February, [facility] [address] [id number] [address] [place] [phone] Jan, [facility] [address] [id number] [address] [place] [phone] Jan, [facility] [address] [facility] [id number] [address] [place] [id number] Dec, [facility] [address] [facility] [id number] [address] [place] [phone] Dec, [facility] [address] [facility] [id number] [address] [place] [phone] Dec, [facility] [address] [id number] [address] [place] [address], [place] [address] Dec, [facility] [address] [id number] [address] [place] [address], [place] [address] Dec, [facility] [address] [id number] [address] [place] [address], [place] [address] Dec, [facility] [address] [id number] [address] [place] [address], [place] [address] Dec, [facility] [address] [id number] [address] [place] [address], [place] [address] Dec, [facility] [address] [id number] [address] [place] [address], [place] [address] Dec, [facility] [address] [id number] [address] [place] [address], [place] [address] Dec, [facility] [address] [id number] [address] [place] [address], [place] [address] Dec, [facility] [address] [id number] [address] [place] [address], [place] [address] Nov, [facility] [address] [id number] [address] [place] [address], [place] [address] Nov, [facility] [address] [id number] [address] [place] [address], [place] [address] Nov, [facility] [address] [id number] [address] [place] [address], [place] [address] Nov, [facility] [address] [id number] [address] [place] [address], [place] [address] Oct, [facility] [address] [id number] [address] [place] [address], [place] [address] Oct, [facility] [address] [id number] [address] [place] [address], [place] [address] Oct, [facility] [address] [id number] [address] [place] [address], [place] [address] Oct, [facility] [address] [id number] [address] [place] [address], [place] [address] Oct, [facility] [address] [id number] [address] [place] [address], [place] [address] Oct, [facility] [address] [id number] [address] [place] [address], [place] [address] Sep, [facility] [address] [id number] [address] [place] [address], [place] [address] Sep, [facility] [address] [id number] [address] [place] [address], [place] [address] Sep, [facility] [address] [id number] [address] [place] [address], [place] [address] Sep, [facility] [address] [id number] [address] [place] [address], [place] [address] Sep, [facility] [address] [id number] [address] [place] [address], [place] [address] Sep, [facility] [address] [id number] [address] [place] [address], [place] [address] Sep, [facility] [address] [id number] [address] [place] [address], [place] [address] Aug, [facility] [address] [id number] [address] [place] [address], [place] [address] Aug, [facility] [address] [id number] [address] [place] [address], [place] [address] Aug, [facility] [address] [id number] [address] [place] [address], [place] [address] Aug, [facility] [address] [id number] [address] [place] [address], [place] [address] Aug, [facility] [address] [id number] [address] [place] [address], [place] [address] Aug, [facility] [address] [id number] [address] [place] [address], [place] [address] Aug, [facility] [address] [id number] [address] [place] [address], [place] [address] Aug, [facility] [address] [id number] [address] [place] [address], [place] [address] Aug, [facility] [address] [id number] [address] [place] [address], [place] [address] Aug, [facility] [address] [id number] [address] [place] [address], [place] [address] Aug, [facility] [address] [id number] [address] [place] [address], [place] [address] Aug, [facility] [address] [id number] [address] [place] [address], [place] [address] Aug, [facility] [address] [id number] [address] [place] [address], [place] [address] Aug, [facility] [address] [id number] [address] [place] [address], [place] [address] Jul, [facility] [address] [id number] [address] [place] [address] Jul, [facility] [address] [id number] [address] [place] [address] Jul, [facility] [address] [id number] [address] [place] [address] Jul, [facility] [address] [id number] [address] [place] [address], [place] [address] Jun, [facility] [address] [id number] [address] [place] [address], [place] [address] Jun, [facility] [address] [id number] [address] [place] [address], [place] [address] Jun, [facility] [address] [id number] [facility] [place] [address] 23 Jun, 2013 [facility] [address] [id number] [facility] [place] [address] 19 Jun, 2013 [facility] [address] [id number] [facility] [place] [address] 19 Jun, 2013 [facility] [address] [id number] [address] [place] [address], [place] [address] 11 Jun, 2013 [facility] [address] [id number] [address] [place] [address], [place] [address] 11 Jun, 2013 [facility] [address] [id number] [address] [place] [address], [place] [address] 11 Jun, 2013 [facility] [address] [id number] [address] [place] [address], [place] [address] 11 Jun, 2013 [facility] [address] [id number] [address] [place] [address], [place] [address] 10 Jun, 2013 [facility] [address] [id number] [address] [place] [address], [place] [address] 10 Jun, 2013 [facility] [address] [id number] [address] [place] [address], [place] [address] 09 Jun, 2013 [facility] [address] [id number] [address] [place] [address], [place] [address] 09 Jun, 2013 [facility] [address] [id number] [address] [place] [address], [place] [address] 14 May, 2014 [facility] [address] [id number] [address] [place] [address], [place] [address] 14 May, 2014 [facility] [address] [id number] [address] [place] [address], [place] [address] May, [facility] [address] [id number] [address] [place] [address], [place] [address] May, [facility] [address] [id number] [address] [place] [address], [place] [address] May, [facility] [address] [id number] [address] [place] [address], [place] [address] May, [facility] [address] [id number] [address] [place] [address], [place] [address] Apr, [facility] [address] [id number] [address] [place] [address], [place] [address] Apr, [facility] [address] [id number] [address] [place] [address], [place] [address] Apr, [facility] [address] [id number] [address] [place] [address], [place] [address] Apr, [facility] [address] [id number] [address] [place] [address], [place] [address] Apr, [facility] [address] [id number] [address] [place] [address], [place] [address] Apr, [facility] [address] [id number] [address] [place] [address], [place] [address] Apr, [facility] [address] [id number] [address] [place] [address], [place] [address] Apr, [facility] [address] [id number] [address] [place] [address], [place] [address] Apr, [facility] [address] [id number] [address] [place] [address], [place] [address] Apr, [facility] [address] [id number] [address] [place] [address], [place] [address] Apr, [facility] [address] [id number] [address] [place] [address], [place] [address] Mar, [facility] [address] [id number] [address] [place] [address], [place] [address] Mar, [facility] [address] [id number] [address] [place] [address], [place] [address] Mar, [facility] [address] [id number] [address] [place] [address], [place] [address] Mar, [facility] [address] [id number] [address] [place] [address], [place] [address] February, [facility] [address] [id number] [address] [place] [address], [place] [address] February, [facility] [address] [id number] [address] [place] [address], [place] [address] Jan, [facility] [address] [id number] [address] [place] [address], [place] [address] Jan, [facility] [address] [place] [id number] Jan, [facility] [address] [id number] [address] [place] [address], [place] [address] Jan, [facility] [address] [id number] [address] [place] [address], [place] [address] Jan, [facility] [address] [id number] [address] [place] [address], [place] [address] Jan, [facility] [address] [id number] [address] [place] [address], [place] [address] Jan, [facility] [address] [id number] [address] [place] [address], [place] [address] Jan, [facility] [address] [id number] [address] [place] [address], [place] [address] Jan, [facility] [address] [id number] [address] [place] [address], [place] [address] Jan, [facility] [address] [id number] [address] [place] [address], [place] [address] Jan, [facility] [address] [id number] [address] [place] [address], [place] [address] Jan, [facility] [address] [id number] [address] [place] [address], [place] [address] Jan, [facility] [address] [id number] [address] [place] [address], [place] [address] 07 Jan, 2014 [facility] [address] [id number] [address] [place] [address], [place] [address] Jan, [facility] [address] [id number] [address] [place] [address], [place] [address] Jan, [facility] [address] [id number] [address] [place] [address], [place] [address] Jan, [facility] [address] [id number] [address] [place] [address], [place] [address] Dec, [facility] [address] [id number] [address] [place] [address], [place] [address] Dec, [facility] [address] [id number] [address] [place] [address], [place] [address] Dec, [facility] [address] [id number] [address] [place] [address], [place] [address] Dec, [facility] [address] [id number] [address] [place] [address], [place] [address] Dec, [facility] [address] [id number] [address] [place] [address], [place] [address] Dec, [facility] [address] [id number] [address] [place] [address], [place] [address] Dec, [facility] [address] [id number] [address] [place] [address], [place] [address] Nov, [facility] [address] [id number] [address] [place] [address], [place] [address] Nov, [facility] [address] [id number] [address] [place] [address], [place] [address] Nov, [facility] [address] [id number] [address] [place] [address], [place] [address] Nov, [facility] [address] [id number] [address] [place] [address], [place] [address] Nov, [facility] [address] [id number] [address] [place] [address], [place] [address] Nov, [facility] [address] [id number] [address] [place] [address], [place] [address] Nov, [facility] [address] [id number] [address] [place] [address], [place] [address] Oct, [facility] [address] [id number] [address] [place] [address], [place] [address] Oct, [facility] [address] [id number] [address] [place] [address], [place] [address] Sep, [facility] [address] [id number] [address] [place] [address], [place] [address] Sep, [facility] [address] [id number] [address] [place] [address], [place] [address] Sep, [facility] [address] [id number] [address] [place] [address], [place] [address] Sep, [facility] [address] [id number] [address] [place] [address], [place] [address] Sep, [facility] [address] [id number] [address] [place] [address], [place] [address] Sep, [facility] [address] [id number] [address] [place] [address], [place] [address] Sep, [facility] [address] [id number] [address] [place] [address], [place] [address] Sep, [facility] [address] [id number] [address] [place] [address], [place] [address] Sep, [facility] [address] [id number] [address] [place] [address], [place] [address] Sep, [facility] [address] [id number] [address] [place] [address], [place] [address] Aug, [facility] [address] [id number] [address] [place] [id number] Aug, [facility] [place] [address] [facility] [id number] [address] [place] [phone] Aug, [facility] [place] [address] [facility] [id number] [address] [place] [phone] Aug, [facility] [place] [address] [facility] [id number] [address] [place] [phone] Aug, [facility] [place] [address] [facility] [id number] [address] [place] [id number] Jul, [facility] [place] [address] [facility] [id number] [address] [place] [id number] Jul, [facility] [place] [address] [facility] [id number] [address] [place] [phone] Jul, [facility] [place] [address] [facility] [id number] [address] [place] [phone] Jul, IMMUNIZATIONS No Known Immunizations SOCIAL HISTORY [...]
--- OUTSIDE RECORDS SUMMARY | 2020-03-16 11:55 | XMS REPORT ---
Author Author Swathi Benavides Organization [facility] Address [address] [place] [address] Care Team Providers Care Nail Maker Name Role Phone WIL Benavides Unavailable PROBLEMS Type Condition ICD9-CM Code [id number] Code Onset Dates Condition S tatus SNOMED Code Problem Sensorineural hearing loss of right ear H90.41 Active 86672763 Problem Obstructive sleep apnea on CPAP G47.33 Active 22374906 Problem Periodic limb movement sleep disorder G47.61 Active 264221764 Problem Iron deficiency anemia due to chronic blood loss D 50.0 Active 44709783 Problem MACHUCA (nonalcoholic steatohepatitis) K75.81 Active 188320640 Problem Vitamin B12 deficiency E53.8 Active 523982863 Problem Chronic diarrhea K52.9 Active 236 640238 Problem Vitamin D deficiency E55.9 Active 58490645 Problem BMI 50.0-59.9, adult Z68.43 Active 296745811 Problem Fatty liver K76.0 Active 38513550 7 Problem Anxiety F41.9 Active 56770640 Problem Major depressive disorder, recurrent episode, moderate F33.1 Active 945688640 Problem Chronic tension-type headache, intractable G44.221 Active 897434914 Problem Right upper quadrant pain R10.11 Acti ve 43456935 Problem Frequent falls R29.6 Active 81376 2002 Problem Crohn's disease of both small and large intestin e with complication K50.819 Active 42303283 Problem Type 2 diabetes mellitus with other specified complication E11.69 Active 502445885924 Problem Hyperlipidemia, unspecified E78.5 Ac tive 65281926 Problem Mixed stress and urge urinary incontinence N39.46 Active 590804041 Problem Sinusitis chronic, frontal J32.1 Act katlyn 50698716 Problem Seasonal allergies J30.2 Active 4 39868184 Problem Other chronic pain G89.29 Active 8 2983647 Problem Hyperlipidemia E78.5 Active 71031 004 Problem Bilateral primary osteoarthritis of knee M17.0 Active 615974569 Problem Essential hypertension I10 Active 28713576 Problem Acquired hypothyroidism E03.9 Active 980600779 Problem History of hysterectomy for benign disease Z90.710 Active 302378350 Problem Morbid (severe) obesity due to excess calories E66 .01 Active 539567108 Problem Other cirrhosis of liver K74.69 Activ e 19260692 Problem Portal hypertension K76.6 Active 09441220 ALLERGIES No Information ENCOUNTERS Encounter Location Date Diagnosis [place] [address] [place] [id number] [place] [address] May, Iron deficiency anemia due t o [...] disorder, recurrent episode, moderate F33.1 [place] [address] [place] [id number] [place] [address] May, Hyperlipidemia, unspecified E78.5 ; Other cirrhosis of liver K74.69 and Iron deficiency anemia due to chronic blood loss D50.0 [place] [address] [place] [id number] [place] [address] February, [facility] [address] [place] [facility] [address] February, Acute recurrent pansinusitis J01.41 [facility] [address] [place] [address] February, Acute maxillary sinusitis, recurrence no t specified J01.00 [place] [address] [place] [id number] [place] [address] Jan, Bilateral primary osteoarthr itis of knee M17.0 ; Morbid obesity E66.01 ; Viral syndrome B34.9 and Atrial dilatation, left I51.7 [place] [address] [place] [id number] [place] [address] Jan, [facility] [address] [facility] [id number] [address] [place] [address] Dec, Trigeminy R00.8 [place] [address] [place] [id number] [place] [address] Dec, Essential hypertension I10 ; Morbid obesity E66.01 ; Low back pain M54.5 ; Other chronic pain G89.29 and Pain in right knee M25.561 [facility] [address] [place] [id number] [place] [address] Nov, [place] [address] [address] Oct, Palpitations R00.2 [place] [address] [place] [id number] [place] [address] Oct, Encounter for Medicare annua l wellness [...] small and large intestine with complication K50.819 [facility] [address] [facility] [id number] [address] [place] [address] Oct, [facility] [address] [place] [id number] [place] [address] Oct, Crohn's disease of both smal l and large intestine with complication K50.819 [facility] [address] [facility] [id number] [address] [place] [address] Jul, Sinusitis chronic, frontal J 32.1 ; Acute mucoid otitis media of both ears H65.113 ; Seasonal allergies J30.2 and BMI 50.0-59.9, adult Z68.43 [facility] [address] [place] [id number] [place] [address] Jul, Essential hypertension I10 ; Type 2 diabetes mellitus with other specified complication E11.69 ; BMI 50.0-59.9, adult Z68.43 ; Mixed stress and urge urinary incontinence N39.46 and Mid back pain on right side M54.9 [facility] [address] [place] [id number] [place] [address] Jun, Iron deficiency anemia due t o chronic blood loss D50.0 ; Hyperlipidemia E78.5 ; Type 2 diabetes mellitus with other specified complication E11.69 ; Vitamin B12 deficiency E53.8 and Vitamin D deficiency E55.9 [facility] IN [facility] [address] [place] [id number] [place] [address] Jun, Cough R05 and BMI 50.0-59.9, adult Z68.43 [place] [id number] [place] [address] Jun, [place] [address] [place] [id number] [place] [address] May, Iron deficiency anemia due t o chronic blood loss D50.0 ; Chronic diarrhea K52.9 ; Essential hypertension I10 ; Type 2 diabetes mellitus with other specified complication E11.69 ; Vitamin D deficiency E55.9 ; Colon stricture K56.699 ; Vitamin B12 deficiency E53.8 ; Hyperlipidemia E78.5 and BMI 50.0-59.9, adult Z68.43 [facility] [address] [place] [id number] [place] [address] May, [place] [address] [place] [id number] [place] [address] Apr, Nonhealing wound of heel S91 .309A and Body mass index (BMI) of 50- 59.9 in adult Z68.43 [place] [address] [place] [id number] [place] [address] Mar, [place] [address] [place] [id number] [place] [address] Mar, BMI 50.0-59.9, adult Z68.43 ; Flank pain R10.9 and Weight loss counseling, encounter for Z71.3 [place] [address] [address] February, [place] [address] [address] Jan, [place] [address] [address] Jan, [facility] IN [facility] [address] [address] Jan, Diarrhea due to staphylococc us A04.8 and Diarrhea, unspecified type R19.7 [place] [address] [address] Jan, Acquired hypothyroidism E03. 9 ; Type 2 diabetes mellitus with other specified complication E11.69 ; Hyperlipidemia E78.5 ; Essential hypertension I10 ; Major depressive disorder, recurrent episode, moderate F33.1 and Vitamin D deficiency E55.9 [place] [address] [place] [id number] [place] [address] Jan, Type 2 diabetes mellitus wit h other specified complication E11.69 ; Hyperlipidemia E78.5 ; Essential hypertension I10 ; Acquired hypothyroidism E03.9 ; Major depressive disorder, recurrent episode, moderate F33.1 ; Vitamin D deficiency E55.9 ; Sinus congestion R09.81 and BMI 50.0-59.9, adult Z68.43 [place] [address] [place] [id number] [place] [address] Dec, [place] [address] [address] Sep, Encounter for immunization Z 23 [place] [address] [address] Sep, [facility] [address] [facility] [id number] [address] [place] [address] Sep, Vitamin B12 deficiency E53.8 [facility] [address] [facility] [id number] [address] [place] [address] Aug, [place] [address] [facility] [id number] [address] [place] [address] Aug, BMI 60.0-69.9, adult Z68.44 and Acute non-recurrent maxillary sinusitis J01.00 [facility] [address] [facility] [id number] [address] [place] [address] Aug, [place] [address] [place] [id number] [place] [address] Aug, Medicare annual wellness vis it, initial Z00.00 ; Screening for breast cancer Z12.31 ; BMI 40.0-44.9, adult Z68.41 and Acquired hypothyroidism E03.9 [place] [address] [facility] [id number] [address] [place] [address] Jul, Actinic keratosis L57.0 [place] [address] [facility] [id number] [address] [place] [address] Jul, Actinic keratosis L57.0 [place] [address] [facility] [id number] [address] [place] [address] Jul, Type 2 diabetes mellitus wit h other specified complication E11.69 ; Actinic keratosis L57.0 and Hypothyroidism, unspecified E03.9 [place] [address] [facility] [id number] [address] [place] [address] Jul, [place] [address] [facility] [id number] [address] [place] [address] Jul, [place] [address] [facility] [id number] [address] [place] [address] Jul, Vitamin B12 deficiency E53.8 [place] [address] [facility] [id number] [address] [place] [address] Jun, Acquired hypothyroidism E03. 9 and Chronic tension-type headache, intractable G44.221 [facility] [address] [facility] [id number] [address] [place] [address] Jun, Back muscle spasm M62.830 an d BMI 50.0-59.9, adult Z68.43 [facility] [address] [place] [id number] [place] [address] Jun, Vitamin B12 deficiency E53.8 [facility] [address] [facility] [id number] [address] [place] [address] Jun, Crohn's disease of both smal l and large intestine with complication K50.819 [facility] [address] [place] [id number] [place] [address] Jun, Crohn's disease of both smal l and large intestine with complication K50.819 [place] [id number] [place] [address] May, Hyperlipidemia E78.5 ; Anxie ty F41.9 and Essential hypertension I10 [place] [address] [place] [id number] [place] [address] May, [place] [address] [place] [id number] [place] [address] May, Encounter for immunization Z 23 and Vitamin B12 deficiency E53.8 [facility] [address] [facility] [id number] [address] [place] [address] May, [facility] [address] [place] [id number] [place] [address] Apr, [facility] [address] [place] [id number] [place] [address] Apr, [facility] [address] [place] [id number] [place] [address] Apr, Crohn's disease of both smal l and large intestine with complication K50.819 [place] [address] [facility] [id number] [address] [place] [address] Apr, Vitamin B12 deficiency E53.8 [place] [address] [facility] [id number] [address] [place] [address] Apr, Crohn's disease of both smal l and large intestine with complication K50.819 and Acute pain of right shoulder M25.511 [place] [address] [facility] [id number] [address] [place] [address] Mar, Type 2 diabetes mellitus wit hout complication E11.9 ; Frequent falls R29.6 and Other chest pain R07.89 [place] [address] [facility] [id number] [address] [place] [address] Mar, [place] [address] [facility] [id number] [address] [place] [address] Mar, [place] [address] [facility] [id number] [address] [place] [address] Mar, Type 2 diabetes mellitus wit hout complication E11.9 and Blurry vision, bilateral H53.8 [place] [address] [facility] [id number] [address] [place] [address] Mar, Vitamin B12 deficiency E53.8 [place] [address] [facility] [id number] [address] [place] [address] Mar, Crohn's disease of both smal l and large intestine with complication K50.819 [place] [address] [facility] [id number] [address] [place] [address] February, Vitamin B12 deficiency E53.8 [place] [address] [facility] [id number] [address] [place] [address] Jan, Crohn's disease of both smal l and large intestine with complication K50.819 [place] [address] [facility] [id number] [address] [place] [address] Jan, Crohn's disease of both smal l and large intestine with complication K50.819 [facility] [address] [facility] [id number] [address] [place] [address] Jan, Dark brown-colored urine R82 .99 and Acute suppurative otitis media of right ear without spontaneous rupture of tympanic membrane, recurrence not specified H66.001 [facility] [address] [place] [id number] [place] [address] Jan, Encounter for immunization Z 23 [facility] [address] [place] [id number] [place] [address] Dec, Crohn's disease of both smal l and large intestine with complication K50.819 and Eustachian tube dysfunction, right H69.81 [facility] [address] [place] [id number] [address] [place] [address] Dec, [facility] [address] [address] Dec, Contusion of right knee, ini tial encounter S80.01XA [facility] [id number] [place] [address] Dec, [facility] [address] [address] Dec, Acute pain of right knee M25 .561 [facility] [address] [place] [id number] [place] [address] Dec, Iron deficiency anemia due t o chronic blood loss D50.0 [facility] [address] [place] [id number] [address] [place] [address] Dec, Hyperlipidemia E78.5 ; Type 2 diabetes mellitus without complication E11.9 ; Vitamin B12 deficiency E53.8 ; Essential hypertension I10 ; Obstructive sleep apnea on CPAP G47.33 and Periodic limb movement sleep disorder G47.61 [facility] [address] [place] [id number] [place] [address] Nov, Type 2 diabetes mellitus wit hout complication E11.9 ; Vitamin B12 deficiency E53.8 ; Hyperlipidemia E78.5 ; Essential hypertension I10 ; Obstructive sleep apnea on CPAP G47.33 ; Periodic limb movement sleep disorder G47.61 ; Anxiety F41.9 ; Acquired hypothyroidism E03.9 and Chronic tension-type headache, intractable G44.221 [facility] [address] [facility] [id number] [address] [place] [address] 10 Nov, 2016 Crohn's disease of both smal l and large intestine with complication K50.819 [facility] [address] [id number] [address] [place] [address] 10 Nov, 2016 Vitamin B12 deficiency E53.8 [place] [address] [facility] [id number] [address] [place] [address] Oct, [place] [address] [facility] [id number] [address] [place] [address] Oct, Vitamin B12 deficiency E53.8 [place] [address] [facility] [id number] [address] [place] [phone] Sep, [place] [address] [facility] [id number] [address] [place] [address] Sep, Vitamin B12 deficiency E53.8 [place] [address] [facility] [id number] [address] [place] [address] Aug, [place] [address] [facility] [id number] [address] [place] [address] Aug, Vitamin B12 deficiency E53.8 [place] [address] [id number] [address] [place] [address] Aug, [place] [address] [facility] [id number] [address] [place] [address] 24 Jul, 2016 Elevated ALT measurement R74 .0 [place] [address] [facility] [id number] [address] [place] [address] Jul, Hematuria R31.9 ; Acute righ t-sided thoracic back pain M54.6 ; Major depressive disorder, recurrent episode, moderate F33.1 and Elevated ALT measurement R74.0 [place] [address] [facility] [id number] [address] [place] [address] Jul, [place] [address] [facility] [id number] [address] [place] [address] 19 Jul, 2016 Elevated ALT measurement R74 .0 [place] [address] [facility] [id number] [address] [place] [address] 14 Jul, 2016 Iron deficiency anemia due t o chronic blood loss D50.0 [place] [address] [facility] [id number] [address] [place] [address] 14 Jul, 2016 Type 2 diabetes mellitus wit hout complication E11.9 ; Acquired hypothyroidism E03.9 ; Iron deficiency anemia due to chronic blood loss D50.0 ; Hyperlipidemia E78.5 and Essential hypertension I10 [place] [address] [place] [id number] [address] [place] [address] Jun, [place] [address] [facility] [id number] [address] [place] [address] Jun, Vitamin B12 deficiency E53.8 [place] [address] [facility] [id number] [address] [place] [address] 16 Jun, 2016 Type 2 diabetes mellitus wit hout complication E11.9 ; Acquired hypothyroidism E03.9 ; Iron deficiency anemia due to chronic blood loss D50.0 ; Hyperlipidemia E78.5 ; Essential hypertension I10 ; Chronic tension-type headache, intractable G44.221 ; Pulsatile tinnitus, bilateral H93.13 ; Obstructive sleep apnea on CPAP G47.33 and Major depressive disorder, recurrent episode, moderate F33.1 [place] [address] [facility] [id number] [address] [place] [address] May, Vitamin B12 deficiency E53.8 [place] [address] [facility] [id number] [address] [place] [address] May, [place] [address] [facility] [id number] [address] [place] [address] Apr, Vitamin B12 deficiency E53.8 [place] [address] [facility] [id number] [address] [place] [address] 05 Apr, 2016 [facility] [address] [facility] [id number] [address] [place] [address] Mar, Chronic tension-type headach e, intractable G44.221 and Major depressive disorder, recurrent episode, moderate F33.1 [facility] [address] [facility] [id number] [address] [place] [address] Mar, Vitamin B12 deficiency E53.8 [facility] [address] [facility] [id number] [address] [place] [address] February, [facility] [address] [facility] [id number] [address] [place] [address] February, Vitamin B12 deficiency E53.8 [facility] [address] [facility] [id number] [address] [place] [address] February, [facility] [address] [facility] [id number] [address] [place] [address] Jan, Dysuria R30.0 [facility] [address] [facility] [id number] [address] [place] [address] Jan, Type 2 diabetes mellitus wit hout complication E11.9 and Essential hypertension I10 [facility] [address] [facility] [id number] [address] [place] [phone] 15 Jan, 2016 Chronic diarrhea K52.9 [facility] [address] [facility] [id number] [address] [place] [phone] Jan, [facility] [address] [facility] [id number] [address] [place] [address] Jan, Chronic diarrhea K52.9 [facility] [address] [facility] [id number] [address] [place] [id number] Jan, [facility] [address] [facility] [id number] [address] [place] [id number] Jan, Dysuria R30.0 [facility] [address] [place] [id number] [address] [place] [id number] 07 Jan, 2016 Vitamin B12 deficiency E53.8 [facility] [address] [id number] 07 Jan, 2016 Dysuria R30.0 and Iron defic iency anemia due to chronic blood loss D50.0 [facility] [id number] [place] [phone] 05 Jan, 2016 Dysuria R30.0 [facility] [address] [place] [id number] [place] [phone] 04 Jan, 2016 [facility] [address] [address] [address] 15 Dec, 2015 [facility] [address] [address] Dec, Iron deficiency anemia due t o chronic blood loss D50.0 [facility] [address] [id number] [address] [place] [address] Dec, Dysuria R30.0 ; Fatigue R53. 83 ; Hyperlipidemia E78.5 and Diarrhea R19.7 [facility] [address] [id number] [address] [place] [address] Dec, [facility] [address] [id number] [address] [place] [address] Dec, [facility] [address] [id number] [address] [place] [address] Nov, Vitamin B12 deficiency E53.8 [facility] [id number] [place] [address] Oct, Vitamin B12 deficiency E53.8 [facility] [address] [id number] [address] [place] [address] Oct, [facility] [address] [facility] [id number] [address] [place] [address] 09 Adi, 2016 Headache R51 [facility] [address] [facility] [id number] [address] [place] [address] 07 Oct, 2015 Essential hypertension I10 ; Type 2 diabetes mellitus without complication E11.9 ; Vitamin B12 deficiency E53.8 ; Acquired hypothyroidism E03.9 ; Iron deficiency anemia due to chronic blood loss D50.0 and Hyperlipidemia E78.5 [facility] [address] [facility] [id number] [address] [place] [address] 17 Sep, 2015 Essential hypertension I10 ; Vitamin B12 deficiency E53.8 ; Iron deficiency anemia due to chronic blood loss D50.0 ; Type 2 diabetes mellitus without complication E11.9 ; Hyperlipidemia E78.5 and Acquired hypothyroidism E03.9 [facility] [address] [facility] [id number] [address] Sep, [facility] [address] [id number] [address] [place] [address] Sep, [facility] [address] [address] Jul, [facility] [address] [id number] [address] [place] [address] Jun, [facility] [address] [address] Jun, [facility] [id number] [place] [address] Jun, Hyperlipidemia 272.4 ; Iron deficiency anemia 280.9 ; Hypothyroidism 244.9 ; Diabetes mellitus without mention of complication, type II or unspecified type, not stated as uncontrolled 250.00 and Hypertension 401.9 [facility] [address] [facility] [id number] [address] [place] [address] Jun, [facility] [address] [id number] [address] [place] [address] Jun, [facility] [address] [id number] [address] [place] [address] May, Hyperlipidemia 272.4 [facility] [address] [id number] [address] [place] [address] May, [facility] [address] [id number] [address] [place] [address] May, [facility] [address] [facility] [id number] [address] [place] [address] Apr, Diabetes mellitus without me ntion of complication, type II or unspecified type, not stated as uncontrolled 250.00 ; Hypothyroidism 244.9 ; Hyperlipidemia 272.4 ; Pain in joint, lower leg 719.46 and RUQ pain 789.01 [facility] [address] [id number] [address] [place] [address] Mar, Sinusitis 473.9 [facility] [address] [facility] [id number] [address] [place] [address] Mar, [facility] [address] [id number] [address] [place] [address] Mar, [facility] [address] [id number] [address] [place] [address] Mar, Hematochezia 578.1 [facility] [address] [facility] [id number] [address] [place] [address] February, Sinusitis 473.9 [facility] [address] [facility] [id number] [address] [place] [address] February, [facility] [address] [id number] [address] [place] [address] Jan, [facility] [address] [id number] [address] [place] [address] Jan, [facility] [address] [facility] [id number] [address] [place] [address] Dec, [facility] [address] [facility] [id number] [address] [place] [address] Dec, [facility] [address] [facility] [id number] [address] [place] [address] Dec, [facility] [address] [id number] [address] [place] [address], [place] [address] Dec, [facility] [address] [id number] [address] [place] [address], [place] [address] Dec, [facility] [address] [id number] [address] [place] [address], [place] [address] Dec, [facility] [address] [id number] [address] [place] [address], [place] [address] Dec, [facility] [address] [id number] [address] [place] [address], [place] [address] Dec, [facility] [address] [id number] [address] [place] [address], [place] [address] Dec, [facility] [address] [id number] [address] [place] [address], [place] [address] Dec, [facility] [address] [id number] [address] [place] [address], [place] [address] Dec, [facility] [address] [id number] [address] [place] [address], [place] [address] Nov, [facility] [address] [id number] [address] [place] [address], [place] [address] Nov, [facility] [address] [id number] [address] [place] [address], [place] [address] Nov, [facility] [address] [id number] [address] [place] [address], [place] [address] Nov, [facility] [address] [id number] [address] [place] [address], [place] [address] Oct, [facility] [address] [id number] [address] [place] [address], [place] [address] Oct, [facility] [address] [id number] [address] [place] [address], [place] [address] Oct, [facility] [address] [id number] [address] [place] [address], [place] [address] Oct, [facility] [address] [id number] [address] [place] [address], [place] [address] Oct, [facility] [address] [id number] [address] [place] [address], [place] [address] Oct, [facility] [address] [id number] [address] [place] [address], [place] [address] Sep, [facility] [address] [id number] [address] [place] [address], [place] [address] Sep, [facility] [address] [id number] [address] [place] [address], [place] [address] Sep, [facility] [address] [id number] [address] [place] [address], [place] [address] Sep, [facility] [address] [id number] [address] [place] [address], [place] [address] Sep, [facility] [address] [id number] [address] [place] [address], [place] [address] Sep, [facility] [address] [id number] [address] [place] [address], [place] [address] Sep, [facility] [address] [id number] [address] [place] [address], [place] [address] Aug, [facility] [address] [id number] [address] [place] [address], [place] [address] Aug, [facility] [address] [id number] [address] [place] [address], [place] [address] Aug, [facility] [address] [id number] [address] [place] [address], [place] [address] Aug, [facility] [address] [id number] [address] [place] [address], [place] [address] Aug, [facility] [address] [id number] [address] [place] [address], [place] [address] Aug, [facility] [address] [id number] [address] [place] [address], [place] [address] Aug, [facility] [address] [id number] [address] [place] [address], [place] [address] Aug, [facility] [address] [id number] [address] [place] [address], [place] [address] Aug, [facility] [address] [id number] [address] [place] [address], [place] [address] Aug, [facility] [address] [id number] [address] [place] [address], [place] [address] Aug, [facility] [address] [id number] [address] [place] [address], [place] [address] Aug, [facility] [address] [id number] [address] [place] [address], [place] [address] Aug, [facility] [address] [id number] [address] [place] [address], [place] [address] Aug, [facility] [address] [id number] [address] [place] [address], [place] [address] Jul, [facility] [address] [id number] [address] [place] [address] Jul, [facility] [address] [id number] [address] [place] [address] Jul, [facility] [address] [id number] [address] [place] [address] Jul, [facility] [address] [id number] [address] [place] [address], [place] [address] Jun, [facility] [address] [id number] [address] [place] [address], [place] [address] Jun, [facility] [address] [id number] [address] [place] [address], [place] [address] Jun, [facility] [address] [id number] [facility] [place] [address] 23 Jun, 2013 [facility] [address] [id number] [facility] [place] [address] 19 Jun, 2013 [facility] [address] [id number] [facility] [place] [address] 19 Jun, 2013 [facility] [address] [id number] [address] [place] [address], [place] [address] 11 Jun, 2013 [facility] [address] [id number] [address] [place] [address], [place] [address] 11 Jun, 2013 [facility] [address] [id number] [address] [place] [address], [place] [address] 11 Jun, 2013 [facility] [address] [id number] [address] [place] [address], [place] [address] 11 Jun, 2013 [facility] [address] [id number] [address] [place] [address], [place] [address] 10 Jun, 2013 [facility] [address] [id number] [address] [place] [address], [place] [address] 10 Jun, 2013 [facility] [address] [id number] [address] [place] [address], [place] [address] 09 Jun, 2013 [facility] [address] [id number] [address] [place] [address], [place] [address] 09 Jun, 2013 [facility] [address] [id number] [address] [place] [address], [place] [address] 14 May, 2014 [facility] [address] [id number] [address] [place] [address], [place] [address] 14 May, 2014 [facility] [address] [id number] [address] [place] [address], [place] [address] May, [facility] [address] [id number] [address] [place] [address], [place] [address] May, [facility] [address] [id number] [address] [place] [address], [place] [address] May, [facility] [address] [id number] [address] [place] [address], [place] [address] May, [facility] [address] [id number] [address] [place] [address], [place] [address] Apr, [facility] [address] [id number] [address] [place] [address], [place] [address] Apr, [facility] [address] [id number] [address] [place] [address], [place] [address] Apr, [facility] [address] [id number] [address] [place] [address], [place] [address] Apr, [facility] [address] [id number] [address] [place] [address], [place] [address] Apr, [facility] [address] [id number] [address] [place] [address], [place] [address] Apr, [facility] [address] [id number] [address] [place] [address], [place] [address] Apr, [facility] [address] [id number] [address] [place] [address], [place] [address] Apr, [facility] [address] [id number] [address] [place] [address], [place] [address] Apr, [facility] [address] [id number] [address] [place] [address], [place] [address] Apr, [facility] [address] [id number] [address] [place] [address], [place] [address] Apr, [facility] [address] [id number] [address] [place] [address], [place] [address] Mar, [facility] [address] [id number] [address] [place] [address], [place] [address] Mar, [facility] [address] [id number] [address] [place] [address], [place] [address] Mar, [facility] [address] [id number] [address] [place] [address], [place] [address] Mar, [facility] [address] [id number] [address] [place] [address], [place] [address] February, [facility] [address] [id number] [address] [place] [address], [place] [address] February, [facility] [address] [id number] [address] [place] [address], [place] [address] Jan, [facility] [address] [id number] [address] [place] [address], [place] [address] Jan, [facility] [address] [place] [id number] Jan, [facility] [place] [address] [id number] [address] [place] [address], [place] [address] Jan, [facility] [address] [id number] [address] [place] [address], [place] [address] Jan, [facility] [address] [id number] [address] [place] [address], [place] [address] Jan, [facility] [address] [id number] [address] [place] [address], [place] [address] Jan, [facility] [address] [id number] [address] [place] [address], [place] [address] Jan, [facility] [address] [id number] [address] [place] [address], [place] [address] Jan, [facility] [address] [id number] [address] [place] [address], [place] [address] Jan, [facility] [address] [id number] [address] [place] [address], [place] [address] Jan, [facility] [address] [id number] [address] [place] [address], [place] [address] Jan, [facility] [address] [id number] [address] [place] [address], [place] [address] Jan, [facility] [address] [id number] [address] [place] [address], [place] [address] 07 Jan, 2014 [facility] [address] [id number] [address] [place] [address], [place] [address] Jan, [facility] [address] [id number] [address] [place] [address], [place] [address] Jan, [facility] [address] [id number] [address] [place] [address], [place] [address] Jan, [facility] [address] [id number] [address] [place] [address], [place] [address] Dec, [facility] [address] [id number] [address] [place] [address], [place] [address] Dec, [facility] [address] [id number] [address] [place] [address], [place] [address] Dec, [facility] [address] [id number] [address] [place] [address], [place] [address] Dec, [facility] [address] [id number] [address] [place] [address], [place] [address] Dec, [facility] [address] [id number] [address] [place] [address], [place] [address] Dec, [facility] [address] [id number] [address] [place] [address], [place] [address] Dec, [facility] [address] [id number] [address] [place] [address], [place] [address] Nov, [facility] [address] [id number] [address] [place] [address], [place] [address] Nov, [facility] [address] [id number] [address] [place] [address], [place] [address] Nov, [facility] [address] [id number] [address] [place] [address], [place] [address] Nov, [facility] [address] [id number] [address] [place] [address], [place] [address] Nov, [facility] [address] [id number] [address] [place] [address], [place] [address] Nov, [facility] [address] [id number] [address] [place] [address], [place] [address] Nov, [facility] [address] [id number] [address] [place] [address], [place] [address] Oct, [facility] [address] [id number] [address] [place] [address], [place] [address] Oct, [facility] [address] [id number] [address] [place] [address], [place] [address] Sep, [facility] [address] [id number] [address] [place] [address], [place] [address] Sep, [facility] [address] [id number] [address] [place] [address], [place] [address] Sep, [facility] [address] [id number] [address] [place] [address], [place] [address] Sep, [facility] [address] [id number] [address] [place] [address], [place] [address] Sep, [facility] [address] [id number] [address] [place] [address], [place] [address] Sep, [facility] [address] [id number] [address] [place] [address], [place] [address] Sep, [facility] [address] [id number] [address] [place] [address], [place] [id number] Sep, [facility] [address] [id number] [address] [place] [address], [place] [address] Sep, [facility] [address] [id number] [address] [place] [address], [place] [address] Sep, [facility] [address] [id number] [address] [place] [address], [place] [address] Aug, [facility] [address] [id number] [address] [place] [id number] Aug, [facility] [address] [facility] [id number] [address] [place] [id number] Aug, [facility] [address] [facility] [id number] [address] [place] [id number] Aug, [facility] [address] [facility] [id number] [address] [place] [id number] Aug, [facility] [address] [facility] [id number] [address] [place] [id number] Jul, [facility] [address] [facility] [id number] [address] [place] [id number] Jul, [facility] [address] [facility] [id number] [address] [place] [id number] Jul, [facility] [address] [facility] [id number] [address] [place] [id number] Jul, IMMUNIZATIONS No Known Immunizations SOCIAL HISTORY [...]
--- OUTSIDE RECORDS SUMMARY | 2020-03-16 11:55 | XMS REPORT ---
Author Author Swathi Benavides Organization [facility] Address [address] [place] [address] Care Team Providers Care Local Hazmat Driver Name Role Phone WIL Benavides Unavailable PROBLEMS Type Condition ICD9-CM Code STE93-UU Code Onset Dates Condition S tatus SNOMED Code Problem Sensorineural hearing loss of right ear H90.41 Active 54048153 Problem Obstructive sleep apnea on CPAP G47.33 Active 28102104 Problem Periodic limb movement sleep disorder G47.61 Active 652927192 Problem Iron deficiency anemia due to chronic blood loss D 50.0 Active 18046398 Problem MACHUCA (nonalcoholic steatohepatitis) K75.81 Active 866993031 Problem Vitamin B12 deficiency E53.8 Active 838065708 Problem Chronic diarrhea K52.9 Active 236 138955 Problem Vitamin D deficiency E55.9 Active 48382114 Problem BMI 50.0-59.9, adult Z68.43 Active 934108462 Problem Fatty liver K76.0 Active 47319798 7 Problem Anxiety F41.9 Active 18395553 Problem Major depressive disorder, recurrent episode, moderate F33.1 Active 427337843 Problem Chronic tension-type headache, intractable G44.221 Active 793510302 Problem Right upper quadrant pain R10.11 Acti ve 72795270 Problem Frequent falls R29.6 Active 73967 2002 Problem Crohn's disease of both small and large intestin e with complication K50.819 Active 48957980 Problem Type 2 diabetes mellitus with other specified complication E11.69 Active 624131588749 Problem Hyperlipidemia, unspecified E78.5 Ac tive 32715602 Problem Mixed stress and urge urinary incontinence N39.46 Active 448195285 Problem Sinusitis chronic, frontal J32.1 Act katlyn 15251645 Problem Seasonal allergies J30.2 Active 4 32720223 Problem Other chronic pain G89.29 Active 8 8939968 Problem Hyperlipidemia E78.5 Active 61333 004 Problem Bilateral primary osteoarthritis of knee M17.0 Active 114399460 Problem Essential hypertension I10 Active 94936401 Problem Acquired hypothyroidism E03.9 Active 021185746 Problem History of hysterectomy for benign disease Z90.710 Active 182859764 Problem Morbid (severe) obesity due to excess calories E66 .01 Active 207417673 Problem Other cirrhosis of liver K74.69 Activ e 63682237 Problem Portal hypertension K76.6 Active 42825311 ALLERGIES No Information ENCOUNTERS Encounter Location Date Diagnosis [place] [address] [place] [id number] [place] [phone] May, Iron deficiency anemia due t o [...] disorder, recurrent episode, moderate F33.1 [place] [address] [place] [id number] [place] [address] May, Hyperlipidemia, unspecified E78.5 ; Other cirrhosis of liver K74.69 and Iron deficiency anemia due to chronic blood loss D50.0 [place] [address] [place] [id number] [place] [id number] February, [facility] [address] [place] [address] February, Acute recurrent pansinusitis J01.41 [facility] [address] [facility] [place] [address] February, Acute maxillary sinusitis, recurrence no t specified J01.00 [place] [address] [place] [id number] [place] [phone] Jan, Bilateral primary osteoarthr itis of knee M17.0 ; Morbid obesity E66.01 ; Viral syndrome B34.9 and Atrial dilatation, left I51.7 [place] [address] [place] [id number] [place] [phone] Jan, [facility] [address] [facility] [id number] [address] [place] [phone] Dec, Trigeminy R00.8 [place] [address] [place] [id number] [place] [address] Dec, Essential hypertension I10 ; Morbid obesity E66.01 ; Low back pain M54.5 ; Other chronic pain G89.29 and Pain in right knee M25.561 [facility] [address] [place] [id number] [place] [id number] Nov, [place] [address] [address] Oct, Palpitations R00.2 [place] [address] [place] [id number] [place] [id number] Oct, Encounter for Medicare annua l wellness [...] small and large intestine with complication K50.819 [facility] [address] [facility] [id number] [address] [place] [phone] Oct, [facility] [address] [place] [id number] [place] [phone] Oct, Crohn's disease of both smal l and large intestine with complication K50.819 [facility] [address] [facility] [id number] [address] [place] [address] Jul, Sinusitis chronic, frontal J 32.1 ; Acute mucoid otitis media of both ears H65.113 ; Seasonal allergies J30.2 and BMI 50.0-59.9, adult Z68.43 [facility] [address] [place] [id number] [place] [id number] Jul, Essential hypertension I10 ; Type 2 diabetes mellitus with other specified complication E11.69 ; BMI 50.0-59.9, adult Z68.43 ; Mixed stress and urge urinary incontinence N39.46 and Mid back pain on right side M54.9 [facility] [address] [place] [id number] [place] [address] Jun, Iron deficiency anemia due t o chronic blood loss D50.0 ; Hyperlipidemia E78.5 ; Type 2 diabetes mellitus with other specified complication E11.69 ; Vitamin B12 deficiency E53.8 and Vitamin D deficiency E55.9 [facility] [address] [place] [id number] [place] [id number] Jun, Cough R05 and BMI 50.0-59.9, adult Z68.43 [place] [address] [place] [address] Jun, [place] [address] [place] [id number] [place] [address] May, Iron deficiency anemia due t o chronic blood loss D50.0 ; Chronic diarrhea K52.9 ; Essential hypertension I10 ; Type 2 diabetes mellitus with other specified complication E11.69 ; Vitamin D deficiency E55.9 ; Colon stricture K56.699 ; Vitamin B12 deficiency E53.8 ; Hyperlipidemia E78.5 and BMI 50.0-59.9, adult Z68.43 [facility] [address] [place] [id number] [place] [address] May, [place] [address] [place] [id number] [place] [address] Apr, Nonhealing wound of heel S91 .309A and Body mass index (BMI) of 50- 59.9 in adult Z68.43 [place] [address] [place] [id number] [place] [phone] Mar, [place] [address] [place] [id number] [place] [address] Mar, BMI 50.0-59.9, adult Z68.43 ; Flank pain R10.9 and Weight loss counseling, encounter for Z71.3 [place] [address] [address] February, [place] [address] [address] Jan, [place] [address] [address] Jan, [facility] [address] [address] Jan, Diarrhea due to staphylococc us A04.8 and Diarrhea, unspecified type R19.7 [place] [address] [address] Jan, Acquired hypothyroidism E03. 9 ; Type 2 diabetes mellitus with other specified complication E11.69 ; Hyperlipidemia E78.5 ; Essential hypertension I10 ; Major depressive disorder, recurrent episode, moderate F33.1 and Vitamin D deficiency E55.9 [place] [address] [place] [id number] [place] [address] Jan, Type 2 diabetes mellitus wit h other specified complication E11.69 ; Hyperlipidemia E78.5 ; Essential hypertension I10 ; Acquired hypothyroidism E03.9 ; Major depressive disorder, recurrent episode, moderate F33.1 ; Vitamin D deficiency E55.9 ; Sinus congestion R09.81 and BMI 50.0-59.9, adult Z68.43 [place] [address] [place] [id number] [place] [address] Dec, [place] [address] [address] Sep, Encounter for immunization Z 23 [place] [address] [address] Sep, [facility] [address] [facility] [id number] [address] [place] [phone] Sep, Vitamin B12 deficiency E53.8 [facility] [address] [facility] [id number] [address] [place] [id number] Aug, [place] [address] [facility] [id number] [address] [place] [id number] Aug, BMI 60.0-69.9, adult Z68.44 and Acute non-recurrent maxillary sinusitis J01.00 [facility] [address] [facility] [id number] [address] [place] [phone] Aug, [place] [address] [place] [id number] [place] [address] Aug, Medicare annual wellness vis it, initial Z00.00 ; Screening for breast cancer Z12.31 ; BMI 40.0-44.9, adult Z68.41 and Acquired hypothyroidism E03.9 [place] [address] [facility] [id number] [address] [place] [id number] Jul, Actinic keratosis L57.0 [place] [address] [facility] [id number] [address] [place] [id number] Jul, Actinic keratosis L57.0 [place] [address] [facility] [id number] [address] [place] [phone] Jul, Type 2 diabetes mellitus wit h other specified complication E11.69 ; Actinic keratosis L57.0 and Hypothyroidism, unspecified E03.9 [place] [address] [facility] [id number] [address] [place] [id number] Jul, [place] [address] [facility] [id number] [address] [place] [id number] Jul, [place] [address] [facility] [id number] [address] [place] [phone] Jul, Vitamin B12 deficiency E53.8 [place] [address] [facility] [id number] [address] [place] [phone] Jun, Acquired hypothyroidism E03. 9 and Chronic tension-type headache, intractable G44.221 [facility] [address] [facility] [id number] [address] [place] [address] Jun, Back muscle spasm M62.830 an d BMI 50.0-59.9, adult Z68.43 [facility] [address] [place] [id number] [place] [phone] Jun, Vitamin B12 deficiency E53.8 [facility] [address] [facility] [id number] [address] [place] [id number] Jun, Crohn's disease of both smal l and large intestine with complication K50.819 [facility] [address] [place] [id number] [place] [id number] Jun, Crohn's disease of both smal l and large intestine with complication K50.819 [place] [address] [place] [address] May, Hyperlipidemia E78.5 ; Anxie ty F41.9 and Essential hypertension I10 [place] [address] [place] [id number] [place] [address] May, [place] [address] [place] [id number] [place] [address] May, Encounter for immunization Z 23 and Vitamin B12 deficiency E53.8 [facility] [address] [facility] [id number] [address] [place] [phone] May, [facility] [address] [place] [id number] [place] [phone] Apr, [facility] [address] [place] [id number] [place] [id number] Apr, [facility] [address] [place] [id number] [place] [id number] Apr, Crohn's disease of both smal l and large intestine with complication K50.819 [place] [address] [facility] [id number] [address] [place] [phone] Apr, Vitamin B12 deficiency E53.8 [place] [address] [facility] [id number] [address] [place] [address] Apr, Crohn's disease of both smal l and large intestine with complication K50.819 and Acute pain of right shoulder M25.511 [place] [address] [facility] [id number] [address] [place] [id number] Mar, Type 2 diabetes mellitus wit hout complication E11.9 ; Frequent falls R29.6 and Other chest pain R07.89 [place] [address] [facility] [id number] [address] [place] [id number] Mar, [place] [address] [facility] [id number] [address] [place] [phone] Mar, [place] [address] [facility] [id number] [address] [place] [id number] Mar, Type 2 diabetes mellitus wit hout complication E11.9 and Blurry vision, bilateral H53.8 [place] [address] [facility] [id number] [address] [place] [id number] Mar, Vitamin B12 deficiency E53.8 [place] [address] [facility] [id number] [address] [place] [id number] Mar, Crohn's disease of both smal l and large intestine with complication K50.819 [place] [address] [facility] [id number] [address] [place] [id number] February, Vitamin B12 deficiency E53.8 [place] [address] [facility] [id number] [address] [place] [phone] Jan, Crohn's disease of both smal l and large intestine with complication K50.819 [place] [address] [facility] [id number] [address] [place] [id number] Jan, Crohn's disease of both smal l and large intestine with complication K50.819 [facility] [address] [facility] [id number] [address] [place] [phone] Jan, Dark brown-colored urine R82 .99 and Acute suppurative otitis media of right ear without spontaneous rupture of tympanic membrane, recurrence not specified H66.001 [facility] [address] [place] [id number] [place] [id number] Jan, Encounter for immunization Z 23 [facility] [address] [place] [id number] [place] [id number] Dec, Crohn's disease of both smal l and large intestine with complication K50.819 and Eustachian tube dysfunction, right H69.81 [facility] [address] [place] [id number] [place] [id number] Dec, [facility] [address] [address] Dec, Contusion of right knee, ini tial encounter S80.01XA [facility] [address] [place] [address] Dec, [facility] [address] [address] Dec, Acute pain of right knee M25 .561 [facility] [address] [place] [id number] [place] [address] Dec, Iron deficiency anemia due t o chronic blood loss D50.0 [facility] [address] [place] [id number] [place] [address] Dec, Hyperlipidemia E78.5 ; Type 2 diabetes mellitus without complication E11.9 ; Vitamin B12 deficiency E53.8 ; Essential hypertension I10 ; Obstructive sleep apnea on CPAP G47.33 and Periodic limb movement sleep disorder G47.61 [facility] [address] [place] [id number] [place] [phone] Nov, Type 2 diabetes mellitus wit hout complication E11.9 ; Vitamin B12 deficiency E53.8 ; Hyperlipidemia E78.5 ; Essential hypertension I10 ; Obstructive sleep apnea on CPAP G47.33 ; Periodic limb movement sleep disorder G47.61 ; Anxiety F41.9 ; Acquired hypothyroidism E03.9 and Chronic tension-type headache, intractable G44.221 [facility] [address] [facility] [id number] [address] [place] [id number] 10 Nov, 2016 Crohn's disease of both smal l and large intestine with complication K50.819 [facility] [address] [id number] [address] [place] [id number] 10 Nov, 2016 Vitamin B12 deficiency E53.8 [place] [address] [facility] [id number] [address] [place] [id number] Oct, [place] [address] [facility] [id number] [address] [place] [id number] Oct, Vitamin B12 deficiency E53.8 [place] [address] [facility] [id number] [address] [place] [phone] Sep, [place] [address] [facility] [id number] [address] [place] [phone] Sep, Vitamin B12 deficiency E53.8 [place] [address] [facility] [id number] [address] [place] [id number] Aug, [place] [address] [facility] [id number] [address] [place] [id number] Aug, Vitamin B12 deficiency E53.8 [place] [address] [id number] [address] [place] [address] Aug, [place] [address] [facility] [id number] [address] [place] [id number] 24 Jul, 2016 Elevated ALT measurement R74 .0 [place] [address] [facility] [id number] [address] [place] [id number] Jul, Hematuria R31.9 ; Acute righ t-sided thoracic back pain M54.6 ; Major depressive disorder, recurrent episode, moderate F33.1 and Elevated ALT measurement R74.0 [place] [address] [facility] [id number] [address] [place] [phone] Jul, [place] [address] [facility] [id number] [address] [place] [id number] 19 Jul, 2016 Elevated ALT measurement R74 .0 [place] [address] [facility] [id number] [address] [place] [phone] 14 Jul, 2016 Iron deficiency anemia due t o chronic blood loss D50.0 [place] [address] [facility] [id number] [address] [place] [id number] 14 Jul, 2016 Type 2 diabetes mellitus wit hout complication E11.9 ; Acquired hypothyroidism E03.9 ; Iron deficiency anemia due to chronic blood loss D50.0 ; Hyperlipidemia E78.5 and Essential hypertension I10 [place] [address] [place] [id number] [place] [id number] Jun, [place] [address] [facility] [id number] [address] [place] [id number] Jun, Vitamin B12 deficiency E53.8 [place] [address] [facility] [id number] [address] [place] [id number] 16 Jun, 2016 Type 2 diabetes mellitus wit hout complication E11.9 ; Acquired hypothyroidism E03.9 ; Iron deficiency anemia due to chronic blood loss D50.0 ; Hyperlipidemia E78.5 ; Essential hypertension I10 ; Chronic tension-type headache, intractable G44.221 ; Pulsatile tinnitus, bilateral H93.13 ; Obstructive sleep apnea on CPAP G47.33 and Major depressive disorder, recurrent episode, moderate F33.1 [place] [address] [facility] [id number] [address] [place] [id number] May, Vitamin B12 deficiency E53.8 [place] [address] [facility] [id number] [address] [place] [id number] May, [place] [address] [facility] [id number] [address] [place] [phone] Apr, Vitamin B12 deficiency E53.8 [place] [address] [facility] [id number] [address] [place] [id number] 05 Apr, 2016 [facility] [address] [facility] [id number] [address] [place] [id number] Mar, Chronic tension-type headach e, intractable G44.221 and Major depressive disorder, recurrent episode, moderate F33.1 [facility] [address] [facility] [id number] [address] [place] [address] Mar, Vitamin B12 deficiency E53.8 [facility] [address] [facility] [id number] [address] [place] [phone] February, [facility] [address] [facility] [id number] [address] [place] [phone] February, Vitamin B12 deficiency E53.8 [facility] [address] [facility] [id number] [address] [place] [phone] February, [facility] [address] [facility] [id number] [address] [place] [id number] Jan, Dysuria R30.0 [facility] [address] [facility] [id number] [address] [place] [phone] Jan, Type 2 diabetes mellitus wit hout complication E11.9 and Essential hypertension I10 [facility] [address] [facility] [id number] [address] [place] [id number] 15 Jan, 2016 Chronic diarrhea K52.9 [facility] [address] [facility] [id number] [address] [place] [id number] Jan, [facility] [address] [facility] [id number] [address] [place] [id number] Jan, Chronic diarrhea K52.9 [facility] [address] [facility] [id number] [address] [place] [phone] Jan, [facility] [address] [facility] [id number] [address] [place] [phone] Jan, Dysuria R30.0 [facility] [address] [place] [id number] [place] [phone] 07 Jan, 2016 Vitamin B12 deficiency E53.8 [facility] [address] [phone] 07 Jan, 2016 Dysuria R30.0 and Iron defic iency anemia due to chronic blood loss D50.0 [facility] [address] [place] [address] 05 Jan, 2016 Dysuria R30.0 [facility] [address] [place] [id number] [place] [id number] 04 Jan, 2016 [facility] [address] [id number] 15 Dec, 2015 [facility] [address] [phone] Dec, Iron deficiency anemia due t o chronic blood loss D50.0 [facility] [id number] [place] [id number] Dec, Dysuria R30.0 ; Fatigue R53. 83 ; Hyperlipidemia E78.5 and Diarrhea R19.7 [facility] [id number] [place] [id number] Dec, [facility] [id number] [place] [phone] Dec, [facility] [id number] [place] [id number] Nov, Vitamin B12 deficiency E53.8 [facility] [address] [place] [phone] Oct, Vitamin B12 deficiency E53.8 [facility] [address] [place] [address] [id number] [place] [phone] Oct, [facility] [address] [facility] [id number] [address] [place] [id number] 09 Adi, 2016 Headache R51 [facility] [address] [facility] [id number] [address] [place] [id number] 07 Oct, 2015 Essential hypertension I10 ; Type 2 diabetes mellitus without complication E11.9 ; Vitamin B12 deficiency E53.8 ; Acquired hypothyroidism E03.9 ; Iron deficiency anemia due to chronic blood loss D50.0 and Hyperlipidemia E78.5 [facility] [address] [facility] [place] [id number] [address] [place] [id number] 17 Sep, 2015 Essential hypertension I10 ; Vitamin B12 deficiency E53.8 ; Iron deficiency anemia due to chronic blood loss D50.0 ; Type 2 diabetes mellitus without complication E11.9 ; Hyperlipidemia E78.5 and Acquired hypothyroidism E03.9 [facility] [address] [facility] [id number] [address] [id number] Sep, [facility] [address] [id number] [address] [place] [id number] Sep, [facility] [address] [id number] Jul, [facility] [address] [id number] [address] [place] [id number] Jun, [facility] [address] [address] Jun, [facility] [address] [place] [address] [id number] [place] [phone] Jun, Hyperlipidemia 272.4 ; Iron deficiency anemia 280.9 ; Hypothyroidism 244.9 ; Diabetes mellitus without mention of complication, type II or unspecified type, not stated as uncontrolled 250.00 and Hypertension 401.9 [facility] [address] [facility] [id number] [address] [place] [phone] Jun, [facility] [address] [id number] [address] [place] [id number] Jun, [facility] [address] [id number] [address] [place] [id number] May, Hyperlipidemia 272.4 [facility] [address] [id number] [address] [place] [phone] May, [facility] [address] [id number] [address] [place] [phone] May, [facility] [address] [facility] [id number] [address] [place] [id number] Apr, Diabetes mellitus without me ntion of complication, type II or unspecified type, not stated as uncontrolled 250.00 ; Hypothyroidism 244.9 ; Hyperlipidemia 272.4 ; Pain in joint, lower leg 719.46 and RUQ pain 789.01 [facility] [address] [id number] [address] [place] [phone] Mar, Sinusitis 473.9 [facility] [address] [facility] [id number] [address] [place] [id number] Mar, [facility] [address] [id number] [address] [place] [id number] Mar, [facility] [address] [id number] [address] [place] [phone] Mar, Hematochezia 578.1 [facility] [address] [facility] [id number] [address] [place] [phone] February, Sinusitis 473.9 [facility] [address] [facility] [id number] [address] [place] [phone] February, [facility] [address] [id number] [address] [place] [phone] Jan, [facility] [address] [id number] [address] [place] [phone] Jan, [facility] [address] [facility] [id number] [address] [place] [phone] Dec, [facility] [address] [facility] [id number] [address] [place] [phone] Dec, [facility] [address] [facility] [id number] [address] [place] [id number] Dec, [facility] [address] [id number] [address] [place] [address], [place] [id number] Dec, [facility] [address] [id number] [address] [place] [address], [place] [address] Dec, [facility] [address] [id number] [address] [place] [address], [place] [address] Dec, [facility] [address] [id number] [address] [place] [address], [place] [address] Dec, [facility] [address] [id number] [address] [place] [address], [place] [address] Dec, [facility] [address] [id number] [address] [place] [address], [place] [address] Dec, [facility] [address] [id number] [address] [place] [address], [place] [address] Dec, [facility] [address] [id number] [address] [place] [address], [place] [address] Dec, [facility] [address] [id number] [address] [place] [address], [place] [address] Nov, [facility] [address] [id number] [address] [place] [address], [place] [address] Nov, [facility] [address] [id number] [address] [place] [address], [place] [address] Nov, [facility] [address] [id number] [address] [place] [address], [place] [address] Nov, [facility] [address] [id number] [address] [place] [address], [place] [id number] Oct, [facility] [address] [id number] [address] [place] [address], [place] [address] Oct, [facility] [address] [id number] [address] [place] [address], [place] [id number] Oct, [facility] [address] [id number] [address] [place] [address], [place] [id number] Oct, [facility] [address] [id number] [address] [place] [address], [place] [address] Oct, [facility] [address] [id number] [address] [place] [address], [place] [address] Oct, [facility] [address] [id number] [address] [place] [address], [place] [id number] Sep, [facility] [address] [id number] [address] [place] [address], [place] [address] Sep, [facility] [address] [id number] [address] [place] [address], [place] [address] Sep, [facility] [address] [id number] [address] [place] [address], [place] [id number] Sep, [facility] [address] [id number] [address] [place] [address], [place] [address] Sep, [facility] [address] [id number] [address] [place] [address], [place] [address] Sep, [facility] [address] [id number] [address] [place] [address], [place] [address] Sep, [facility] [address] [id number] [address] [place] [address], [place] [address] Aug, [facility] [address] [id number] [address] [place] [address], [place] [id number] Aug, [facility] [address] [id number] [address] [place] [address], [place] [address] Aug, [facility] [address] [id number] [address] [place] [address], [place] [address] Aug, [facility] [address] [id number] [address] [place] [address], [place] [address] Aug, [facility] [address] [id number] [address] [place] [address], [place] [address] Aug, [facility] [address] [id number] [address] [place] [address], [place] [address] Aug, [facility] [address] [id number] [address] [place] [address], [place] [address] Aug, [facility] [address] [id number] [address] [place] [address], [place] [address] Aug, [facility] [address] [id number] [address] [place] [address], [place] [address] Aug, [facility] [address] [id number] [address] [place] [address], [place] [address] Aug, [facility] [address] [id number] [address] [place] [address], [place] [address] Aug, [facility] [address] [id number] [address] [place] [address], [place] [address] Aug, [facility] [address] [id number] [address] [place] [address], [place] [address] Aug, [facility] [address] [id number] [address] [place] [address], [place] [address] Jul, [facility] [address] [id number] [address] [place] [id number] Jul, [facility] [address] [id number] [address] [place] [id number] Jul, [facility] [address] [id number] [address] [place] [id number] Jul, [facility] [address] [id number] [address] [place] [address], [place] [address] Jun, [facility] [address] [id number] [address] [place] [address], [place] [address] Jun, [facility] [address] [id number] [address] [place] [address], [place] [address] Jun, [facility] [address] [id number] [facility] [address] 23 Jun, 2013 [facility] [address] [id number] [facility] [place] [address] 19 Jun, 2013 [facility] [address] [id number] [facility] [place] [address] 19 Jun, 2013 [facility] [address] [id number] [address] [place] [address], [place] [address] 11 Jun, 2013 [facility] [address] [id number] [address] [place] [address], [place] [address] 11 Jun, 2013 [facility] [address] [id number] [address] [place] [address], [place] [address] 11 Jun, 2013 [facility] [address] [id number] [address] [place] [address], [place] [address] 11 Jun, 2013 [facility] [address] [id number] [address] [place] [address], [place] [address] 10 Jun, 2013 [facility] [address] [id number] [address] [place] [address], [place] [address] 10 Jun, 2013 [facility] [address] [id number] [address] [place] [address], [place] [address] 09 Jun, 2013 [facility] [address] [id number] [address] [place] [address], [place] [address] 09 Jun, 2013 [facility] [address] [id number] [address] [place] [address], [place] [address] 14 May, 2014 [facility] [address] [id number] [address] [place] [address], [place] [address] 14 May, 2014 [facility] [address] [id number] [address] [place] [address], [place] [address] May, [facility] [address] [id number] [address] [place] [address], [place] [address] May, [facility] [address] [id number] [address] [place] [address], [place] [address] May, [facility] [address] [id number] [address] [place] [address], [place] [address] May, [facility] [address] [id number] [address] [place] [address], [place] [address] Apr, [facility] [address] [id number] [address] [place] [address], [place] [address] Apr, [facility] [address] [id number] [address] [place] [address], [place] [address] Apr, [facility] [address] [id number] [address] [place] [address], [place] [address] Apr, [facility] [address] [id number] [address] [place] [address], [place] [id number] Apr, [facility] [address] [id number] [address] [place] [address], [place] [address] Apr, [facility] [address] [id number] [address] [place] [address], [place] [address] Apr, [facility] [address] [id number] [address] [place] [address], [place] [address] Apr, [facility] [address] [id number] [address] [place] [address], [place] [address] Apr, [facility] [address] [id number] [address] [place] [address], [place] [address] Apr, [facility] [address] [id number] [address] [place] [address], [place] [address] Apr, [facility] [address] [id number] [address] [place] [address], [place] [address] Mar, [facility] [address] [id number] [address] [place] [address], [place] [address] Mar, [facility] [address] [id number] [address] [place] [address], [place] [address] Mar, [facility] [address] [id number] [address] [place] [address], [place] [address] Mar, [facility] [address] [id number] [address] [place] [address], [place] [address] February, [facility] [address] [id number] [address] [place] [address], [place] [address] February, [facility] [address] [id number] [address] [place] [address], [place] [address] Jan, [facility] [address] [id number] [address] [place] [address], [place] [address] Jan, [facility] [address] [place] [id number] Jan, [facility] [address] [id number] [address] [place] [address], [place] [address] Jan, [facility] [address] [id number] [address] [place] [address], [place] [address] Jan, [facility] [address] [id number] [address] [place] [address], [place] [address] Jan, [facility] [address] [id number] [address] [place] [address], [place] [address] Jan, [facility] [address] [id number] [address] [place] [address], [place] [address] Jan, [facility] [address] [id number] [address] [place] [address], [place] [address] Jan, [facility] [address] [id number] [address] [place] [address], [place] [address] Jan, [facility] [address] [id number] [address] [place] [address], [place] [address] Jan, [facility] [address] [id number] [address] [place] [address], [place] [address] Jan, [facility] [address] [id number] [address] [place] [address], [place] [address] Jan, [facility] [address] [id number] [address] [place] [address], [place] [address] 07 Jan, 2014 [facility] [address] [id number] [address] [place] [address], [place] [address] Jan, [facility] [address] [id number] [address] [place] [address], [place] [address] Jan, [facility] [address] [id number] [address] [place] [address], [place] [address] Jan, [facility] [address] [id number] [address] [place] [address], [place] [address] Dec, [facility] [address] [id number] [address] [place] [address], [place] [address] Dec, [facility] [address] [id number] [address] [place] [address], [place] [address] Dec, [facility] [address] [id number] [address] [place] [address], [place] [address] Dec, [facility] [address] [id number] [address] [place] [address], [place] [address] Dec, [facility] [address] [id number] [address] [place] [address], [place] [address] Dec, [facility] [address] [id number] [address] [place] [address], [place] [address] Dec, [facility] [address] [id number] [address] [place] [address], [place] [address] Nov, [facility] [address] [id number] [address] [place] [address], [place] [address] Nov, [facility] [address] [id number] [address] [place] [address], [place] [address] Nov, [facility] [address] [id number] [address] [place] [address], [place] [id number] Nov, [facility] [address] [id number] [address] [place] [address], [place] [address] Nov, [facility] [address] [id number] [address] [place] [address], [place] [address] Nov, [facility] [address] [id number] [address] [place] [address], [place] [address] Nov, [facility] [address] [id number] [address] [place] [address], [place] [address] Oct, [facility] [address] [id number] [address] [place] [address], [place] [address] Oct, [facility] [address] [id number] [address] [place] [address], [place] [address] Sep, [facility] [address] [id number] [address] [place] [address], [place] [address] Sep, [facility] [address] [id number] [address] [place] [address], [place] [address] Sep, [facility] [address] [id number] [address] [place] [address], [place] [address] Sep, [facility] [address] [id number] [address] [place] [address], [place] [address] Sep, [facility] [address] [id number] [address] [place] [address], [place] [address] Sep, [facility] [address] [id number] [address] [place] [address], [place] [address] Sep, [facility] [address] [id number] [address] [place] [address], [place] [address] Sep, [facility] [address] [id number] [address] [place] [address], [place] [address] Sep, [facility] [address] [id number] [address] [place] [address], [place] [address] Sep, [facility] [address] [id number] [address] [place] [address], [place] [address] Aug, [facility] [address] [id number] [address] [place] [id number] Aug, [facility] [address] [facility] [id number] [address] [place] [id number] Aug, [facility] [address] [facility] [id number] [address] [place] [id number] Aug, [facility] [address] [facility] [id number] [address] [place] [id number] Aug, [facility] [address] [facility] [id number] [address] [place] [id number] Jul, [facility] [address] [facility] [id number] [address] [place] [id number] Jul, [facility] [address] [facility] [id number] [address] [place] [id number] Jul, [facility] [address] [facility] [id number] [address] [place] [id number] Jul, IMMUNIZATIONS No Known Immunizations SOCIAL HISTORY [...]
--- OUTSIDE RECORDS SUMMARY | 2020-03-16 11:56 | XMS REPORT ---
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 Name Role Phone WIL Benavides Unavailable PROBLEMS Type Condition ICD9-CM Code VOU19-AJ Code Onset Dates Condition S tatus SNOMED Code Problem Sensorineural hearing loss of right ear H90.41 Active 60444144 Problem Obstructive sleep apnea on CPAP G47.33 Active 87199787 Problem Periodic limb movement sleep disorder G47.61 Active 195108074 Problem Iron deficiency anemia due to chronic blood loss D 50.0 Active 83430256 Problem MACHUCA (nonalcoholic steatohepatitis) K75.81 Active 868313729 Problem Vitamin B12 deficiency E53.8 Active 260566873 Problem Chronic diarrhea K52.9 Active 236 820264 Problem Vitamin D deficiency E55.9 Active 22656709 Problem BMI 50.0-59.9, adult Z68.43 Active 624424059 Problem Fatty liver K76.0 Active 14400648 7 Problem Anxiety F41.9 Active 97511328 Problem Major depressive disorder, recurrent episode, moderate F33.1 Active 569296480 Problem Chronic tension-type headache, intractable G44.221 Active 083589797 Problem Right upper quadrant pain R10.11 Acti ve 48684791 Problem Frequent falls R29.6 Active 90100 2002 Problem Crohn's disease of both small and large intestin e with complication K50.819 Active 69258636 Problem Type 2 diabetes mellitus with other specified complication E11.69 Active 514269998868 Problem Hyperlipidemia, unspecified E78.5 Ac tive 02432732 Problem Mixed stress and urge urinary incontinence N39.46 Active 119907575 Problem Sinusitis chronic, frontal J32.1 Act katlyn 88537884 Problem Seasonal allergies J30.2 Active 4 28408059 Problem Other chronic pain G89.29 Active 8 2980773 Problem Hyperlipidemia E78.5 Active 55023 004 Problem Bilateral primary osteoarthritis of knee M17.0 Active 970348902 Problem Essential hypertension I10 Active 19874946 Problem Acquired hypothyroidism E03.9 Active 680007392 Problem History of hysterectomy for benign disease Z90.710 Active 672188327 Problem Morbid (severe) obesity due to excess calories E66 .01 Active 971864469 Problem Other cirrhosis of liver K74.69 Activ e 30464978 Problem Portal hypertension K76.6 Active 41302294 ALLERGIES No Information ENCOUNTERS Encounter Location Date Diagnosis [place] [address] [place] [id number] [place] [address] May, Iron deficiency anemia due t o [...] Major depressive disorder, recurrent episode, moderate F33.1 [place] [address] [place] [id number] [place] [address] May, Hyperlipidemia, unspecified E78.5 ; Other cirrhosis of liver K74.69 and Iron deficiency anemia due to chronic blood loss D50.0 [place] [address] [place] [id number] [place] [address] February, [facility] [address] [facility] [place] [address] February, Acute recurrent pansinusitis J01.41 [facility] [address] [facility] [place] [address] February, Acute maxillary sinusitis, recurrence no t specified J01.00 [place] [address] [place] [id number] [place] [address] Jan, Bilateral primary osteoarthr itis of knee M17.0 ; Morbid obesity E66.01 ; Viral syndrome B34.9 and Atrial dilatation, left I51.7 [place] [address] [place] [id number] [place] [address] Jan, [facility] [address] [facility] [id number] [address] [place] [address] Dec, Trigeminy R00.8 [place] [address] [place] [id number] [place] [address] Dec, Essential hypertension I10 ; Morbid obesity E66.01 ; Low back pain M54.5 ; Other chronic pain G89.29 and Pain in right knee M25.561 [facility] [address] [place] [id number] [place] [address] Nov, [place] [address] [address] Oct, Palpitations R00.2 [place] [address] [place] [id number] [address] [place] [address] Oct, Encounter for Medicare annua l wellness [...] small and large intestine with complication K50.819 [facility] [address] [facility] [id number] [address] [place] [address] Oct, [facility] [address] [place] [id number] [address] [place] [address] Oct, Crohn's disease of both smal l and large intestine with complication K50.819 [facility] [address] [facility] [id number] [address] [place] [address] Jul, Sinusitis chronic, frontal J 32.1 ; Acute mucoid otitis media of both ears H65.113 ; Seasonal allergies J30.2 and BMI 50.0-59.9, adult Z68.43 [facility] [address] [place] [id number] [place] [address] Jul, Essential hypertension I10 ; Type 2 diabetes mellitus with other specified complication E11.69 ; BMI 50.0-59.9, adult Z68.43 ; Mixed stress and urge urinary incontinence N39.46 and Mid back pain on right side M54.9 [facility] [address] [place] [id number] [place] [address] Jun, Iron deficiency anemia due t o chronic blood loss D50.0 ; Hyperlipidemia E78.5 ; Type 2 diabetes mellitus with other specified complication E11.69 ; Vitamin B12 deficiency E53.8 and Vitamin D deficiency E55.9 [facility] [address] [place] [id number] [place] [address] Jun, Cough R05 and BMI 50.0-59.9, adult Z68.43 [place] [id number] [place] [address] Jun, [place] [address] [place] [id number] [address] [place] [address] May, Iron deficiency anemia due t o chronic blood loss D50.0 ; Chronic diarrhea K52.9 ; Essential hypertension I10 ; Type 2 diabetes mellitus with other specified complication E11.69 ; Vitamin D deficiency E55.9 ; Colon stricture K56.699 ; Vitamin B12 deficiency E53.8 ; Hyperlipidemia E78.5 and BMI 50.0-59.9, adult Z68.43 [facility] [address] [place] [id number] [place] [address] May, [place] [address] [place] [id number] [place] [address] Apr, Nonhealing wound of heel S91 .309A and Body mass index (BMI) of 50- 59.9 in adult Z68.43 [place] [address] [place] [id number] [address] [place] [address] Mar, [place] [address] [place] [id number] [place] [address] Mar, BMI 50.0-59.9, adult Z68.43 ; Flank pain R10.9 and Weight loss counseling, encounter for Z71.3 [place] [address] [address] February, [place] [address] [address] Jan, [place] [address] [address] Jan, [facility] [address] [address] Jan, Diarrhea due to staphylococc us A04.8 and Diarrhea, unspecified type R19.7 [place] [address] [address] Jan, Acquired hypothyroidism E03. 9 ; Type 2 diabetes mellitus with other specified complication E11.69 ; Hyperlipidemia E78.5 ; Essential hypertension I10 ; Major depressive disorder, recurrent episode, moderate F33.1 and Vitamin D deficiency E55.9 [place] [address] [place] [id number] [place] [address] Jan, Type 2 diabetes mellitus wit h other specified complication E11.69 ; Hyperlipidemia E78.5 ; Essential hypertension I10 ; Acquired hypothyroidism E03.9 ; Major depressive disorder, recurrent episode, moderate F33.1 ; Vitamin D deficiency E55.9 ; Sinus congestion R09.81 and BMI 50.0-59.9, adult Z68.43 [place] [address] [place] [id number] [place] [address] Dec, [place] [address] [address] Sep, Encounter for immunization Z 23 [place] [address] [address] Sep, [facility] [address] [facility] [id number] [address] [place] [address] Sep, Vitamin B12 deficiency E53.8 [facility] [address] [facility] [id number] [address] [place] [address] Aug, [place] [address] [facility] [id number] [address] [place] [address] Aug, BMI 60.0-69.9, adult Z68.44 and Acute non-recurrent maxillary sinusitis J01.00 [facility] [address] [facility] [id number] [address] [place] [address] Aug, [place] [address] [place] [id number] [place] [address] Aug, Medicare annual wellness vis it, initial Z00.00 ; Screening for breast cancer Z12.31 ; BMI 40.0-44.9, adult Z68.41 and Acquired hypothyroidism E03.9 [place] [address] [facility] [id number] [address] [place] [address] Jul, Actinic keratosis L57.0 [place] [address] [facility] [id number] [address] [place] [address] Jul, Actinic keratosis L57.0 [place] [address] [facility] [id number] [address] [place] [address] Jul, Type 2 diabetes mellitus wit h other specified complication E11.69 ; Actinic keratosis L57.0 and Hypothyroidism, unspecified E03.9 [place] [address] [facility] [id number] [address] [place] [address] Jul, [place] [address] [facility] [id number] [address] [place] [address] Jul, [place] [address] [facility] [id number] [address] [place] [address] Jul, Vitamin B12 deficiency E53.8 [place] [address] [facility] [id number] [address] [place] [address] Jun, Acquired hypothyroidism E03. 9 and Chronic tension-type headache, intractable G44.221 [facility] [address] [facility] [id number] [address] [place] [address] Jun, Back muscle spasm M62.830 an d BMI 50.0-59.9, adult Z68.43 [facility] [address] [place] [id number] [place] [address] Jun, Vitamin B12 deficiency E53.8 [facility] [address] [facility] [id number] [address] [place] [address] Jun, Crohn's disease of both smal l and large intestine with complication K50.819 [facility] [address] [place] [id number] [place] [address] Jun, Crohn's disease of both smal l and large intestine with complication K50.819 [place] [address] [place] [address] May, Hyperlipidemia E78.5 ; Anxie ty F41.9 and Essential hypertension I10 [place] [address] [place] [id number] [place] [address] May, [place] [address] [place] [id number] [place] [address] May, Encounter for immunization Z 23 and Vitamin B12 deficiency E53.8 [facility] [address] [facility] [id number] [address] [place] [address] May, [facility] [address] [place] [id number] [place] [address] Apr, [facility] [address] [place] [id number] [place] [address] Apr, [facility] [address] [place] [id number] [place] [address] Apr, Crohn's disease of both smal l and large intestine with complication K50.819 [place] [address] [facility] [id number] [address] [place] [address] Apr, Vitamin B12 deficiency E53.8 [place] [address] [facility] [id number] [address] [place] [address] Apr, Crohn's disease of both smal l and large intestine with complication K50.819 and Acute pain of right shoulder M25.511 [place] [address] [facility] [id number] [address] [place] [address] Mar, Type 2 diabetes mellitus wit hout complication E11.9 ; Frequent falls R29.6 and Other chest pain R07.89 [place] [address] [facility] [id number] [address] [place] [address] Mar, [place] [address] [facility] [id number] [address] [place] [address] Mar, [place] [address] [facility] [id number] [address] [place] [address] Mar, Type 2 diabetes mellitus wit hout complication E11.9 and Blurry vision, bilateral H53.8 [place] [address] [facility] [id number] [address] [place] [address] Mar, Vitamin B12 deficiency E53.8 [place] [address] [facility] [id number] [address] [place] [address] Mar, Crohn's disease of both smal l and large intestine with complication K50.819 [place] [address] [facility] [id number] [address] [place] [address] February, Vitamin B12 deficiency E53.8 [place] [address] [facility] [id number] [address] [place] [address] Jan, Crohn's disease of both smal l and large intestine with complication K50.819 [place] [address] [facility] [id number] [address] [place] [address] Jan, Crohn's disease of both smal l and large intestine with complication K50.819 [facility] [address] [facility] [id number] [address] [place] [address] Jan, Dark brown-colored urine R82 .99 and Acute suppurative otitis media of right ear without spontaneous rupture of tympanic membrane, recurrence not specified H66.001 [facility] [address] [place] [id number] [place] [address] Jan, Encounter for immunization Z 23 [facility] [address] [place] [id number] [place] [address] Dec, Crohn's disease of both smal l and large intestine with complication K50.819 and Eustachian tube dysfunction, right H69.81 [facility] [address] [place] [id number] [place] [address] Dec, [facility] [address] [address] Dec, Contusion of right knee, ini tial encounter S80.01XA [facility] [id number] [place] [address] Dec, [facility] [address] [address] Dec, Acute pain of right knee M25 .561 [facility] [address] [place] [id number] [place] [address] Dec, Iron deficiency anemia due t o chronic blood loss D50.0 [facility] [address] [place] [id number] [place] [address] Dec, Hyperlipidemia E78.5 ; Type 2 diabetes mellitus without complication E11.9 ; Vitamin B12 deficiency E53.8 ; Essential hypertension I10 ; Obstructive sleep apnea on CPAP G47.33 and Periodic limb movement sleep disorder G47.61 [facility] [address] [place] [id number] [place] [address] Nov, Type 2 diabetes mellitus wit hout complication E11.9 ; Vitamin B12 deficiency E53.8 ; Hyperlipidemia E78.5 ; Essential hypertension I10 ; Obstructive sleep apnea on CPAP G47.33 ; Periodic limb movement sleep disorder G47.61 ; Anxiety F41.9 ; Acquired hypothyroidism E03.9 and Chronic tension-type headache, intractable G44.221 [facility] [address] [facility] [id number] [address] [place] [address] 10 Nov, 2016 Crohn's disease of both smal l and large intestine with complication K50.819 [facility] [address] [id number] [address] [place] [address] 10 Nov, 2016 Vitamin B12 deficiency E53.8 [place] [address] [facility] [id number] [address] [place] [address] Oct, [place] [address] [facility] [id number] [address] [place] [address] Oct, Vitamin B12 deficiency E53.8 [place] [address] [facility] [id number] [address] [place] [address] Sep, [place] [address] [facility] [id number] [address] [place] [address] Sep, Vitamin B12 deficiency E53.8 [place] [address] [facility] [id number] [address] [place] [address] Aug, [place] [address] [facility] [id number] [address] [place] [address] Aug, Vitamin B12 deficiency E53.8 [place] [address] [id number] [address] [place] [address] Aug, [place] [address] [facility] [id number] [address] [place] [address] 24 Jul, 2016 Elevated ALT measurement R74 .0 [place] [address] [facility] [id number] [address] [place] [address] Jul, Hematuria R31.9 ; Acute righ t-sided thoracic back pain M54.6 ; Major depressive disorder, recurrent episode, moderate F33.1 and Elevated ALT measurement R74.0 [place] [address] [facility] [id number] [address] [place] [address] Jul, [place] [address] [facility] [id number] [address] [place] [address] 19 Jul, 2016 Elevated ALT measurement R74 .0 [place] [address] [facility] [id number] [address] [place] [address] 14 Jul, 2016 Iron deficiency anemia due t o chronic blood loss D50.0 [place] [address] [facility] [id number] [address] [place] [address] 14 Jul, 2016 Type 2 diabetes mellitus wit hout complication E11.9 ; Acquired hypothyroidism E03.9 ; Iron deficiency anemia due to chronic blood loss D50.0 ; Hyperlipidemia E78.5 and Essential hypertension I10 [place] [address] [place] [id number] [place] [address] Jun, [place] [address] [facility] [id number] [address] [place] [address] Jun, Vitamin B12 deficiency E53.8 [place] [address] [facility] [id number] [address] [place] [address] 16 Jun, 2016 Type 2 diabetes mellitus wit hout complication E11.9 ; Acquired hypothyroidism E03.9 ; Iron deficiency anemia due to chronic blood loss D50.0 ; Hyperlipidemia E78.5 ; Essential hypertension I10 ; Chronic tension-type headache, intractable G44.221 ; Pulsatile tinnitus, bilateral H93.13 ; Obstructive sleep apnea on CPAP G47.33 and Major depressive disorder, recurrent episode, moderate F33.1 [place] [address] [facility] [id number] [address] [place] [address] May, Vitamin B12 deficiency E53.8 [place] [address] [facility] [id number] [address] [place] [address] May, [place] [address] [facility] [id number] [address] [place] [address] Apr, Vitamin B12 deficiency E53.8 [place] [address] [facility] [id number] [address] [place] [address] 05 Apr, 2016 [facility] [address] [facility] [id number] [address] [place] [address] Mar, Chronic tension-type headach e, intractable G44.221 and Major depressive disorder, recurrent episode, moderate F33.1 [facility] [address] [facility] [id number] [address] [place] [address] Mar, Vitamin B12 deficiency E53.8 [facility] [address] [facility] [id number] [address] [place] [address] February, [facility] [address] [facility] [id number] [address] [place] [address] February, Vitamin B12 deficiency E53.8 [facility] [address] [facility] [id number] [address] [place] [phone] February, [facility] [address] [facility] [id number] [address] [place] [address] Jan, Dysuria R30.0 [facility] [address] [facility] [id number] [address] [place] [address] Jan, Type 2 diabetes mellitus wit hout complication E11.9 and Essential hypertension I10 [facility] [address] [facility] [id number] [address] [place] [address] 15 Jan, 2016 Chronic diarrhea K52.9 [facility] [address] [facility] [id number] [address] [place] [address] Jan, [facility] [address] [facility] [id number] [address] [place] [address] Jan, Chronic diarrhea K52.9 [facility] [address] [facility] [id number] [address] [place] [address] Jan, [facility] [address] [facility] [id number] [address] [place] [address] Jan, Dysuria R30.0 [facility] [address] [place] [id number] [place] [address] 07 Jan, 2016 Vitamin B12 deficiency E53.8 [facility] [address] [address] 07 Jan, 2016 Dysuria R30.0 and Iron defic iency anemia due to chronic blood loss D50.0 [facility] [address] [place] [address] 05 Jan, 2016 Dysuria R30.0 [facility] [address] [place] [id number] [place] [address] 04 Jan, 2016 [facility] [address] [phone] 15 Dec, 2015 [facility] [address] [id number] Dec, Iron deficiency anemia due t o chronic blood loss D50.0 [facility] [id number] [place] [id number] Dec, Dysuria R30.0 ; Fatigue R53. 83 ; Hyperlipidemia E78.5 and Diarrhea R19.7 [facility] [id number] [place] [phone] Dec, [facility] [id number] [place] [phone] Dec, [facility] [id number] [place] [phone] Nov, Vitamin B12 deficiency E53.8 [facility] [id number] [place] [phone] Oct, Vitamin B12 deficiency E53.8 [facility] [id number] [place] [phone] Oct, [facility] [address] [facility] [id number] [address] [place] [phone] 09 Adi, 2016 Headache R51 [facility] [address] [facility] [id number] [address] [place] [id number] 07 Oct, 2015 Essential hypertension I10 ; Type 2 diabetes mellitus without complication E11.9 ; Vitamin B12 deficiency E53.8 ; Acquired hypothyroidism E03.9 ; Iron deficiency anemia due to chronic blood loss D50.0 and Hyperlipidemia E78.5 [facility] [address] [facility] [id number] [address] [place] [id number] 17 Sep, 2015 Essential hypertension I10 ; Vitamin B12 deficiency E53.8 ; Iron deficiency anemia due to chronic blood loss D50.0 ; Type 2 diabetes mellitus without complication E11.9 ; Hyperlipidemia E78.5 and Acquired hypothyroidism E03.9 [facility] [address] [facility] [id number] [address] Sep, [facility] [address] [id number] [address] [place] [address] Sep, [facility] [address] [address] Jul, [facility] [address] [id number] [address] [place] [address] Jun, [facility] [address] [address] Jun, [facility] [address] [id number] [place] [address] Jun, Hyperlipidemia 272.4 ; Iron deficiency anemia 280.9 ; Hypothyroidism 244.9 ; Diabetes mellitus without mention of complication, type II or unspecified type, not stated as uncontrolled 250.00 and Hypertension 401.9 [facility] [address] [facility] [id number] [address] [place] [address] Jun, [facility] [address] [id number] [address] [place] [address] Jun, [facility] [address] [id number] [address] [place] [address] May, Hyperlipidemia 272.4 [facility] [address] [id number] [address] [place] [address] May, [facility] [address] [id number] [address] [place] [address] May, [facility] [address] [facility] [id number] [address] [place] [address] Apr, Diabetes mellitus without me ntion of complication, type II or unspecified type, not stated as uncontrolled 250.00 ; Hypothyroidism 244.9 ; Hyperlipidemia 272.4 ; Pain in joint, lower leg 719.46 and RUQ pain 789.01 [facility] [address] [id number] [address] [place] [address] Mar, Sinusitis 473.9 [facility] [address] [facility] [id number] [address] [place] [address] Mar, [facility] [address] [id number] [address] [place] [address] Mar, [facility] [address] [id number] [address] [place] [address] Mar, Hematochezia 578.1 [facility] [address] [facility] [id number] [address] [place] [address] February, Sinusitis 473.9 [facility] [address] [facility] [id number] [address] [place] [address] February, [facility] [address] [id number] [address] [place] [address] Jan, [facility] [address] [id number] [address] [place] [address] Jan, [facility] [address] [facility] [id number] [address] [place] [address] Dec, [facility] [address] [facility] [id number] [address] [place] [address] Dec, [facility] [address] [facility] [id number] [address] [place] [address] Dec, [facility] [address] [id number] [address] [place] [address], [place] [address] Dec, [facility] [address] [id number] [address] [place] [address], [place] [address] Dec, [facility] [address] [id number] [address] [place] [address], [place] [address] Dec, [facility] [address] [id number] [address] [place] [address], [place] [address] Dec, [facility] [address] [id number] [address] [place] [address], [place] [address] Dec, [facility] [address] [id number] [address] [place] [address], [place] [address] Dec, [facility] [address] [id number] [address] [place] [address], [place] [address] Dec, [facility] [address] [id number] [address] [place] [address], [place] [address] Dec, [facility] [address] [id number] [address] [place] [address], [place] [address] Nov, [facility] [address] [id number] [address] [place] [address], [place] [address] Nov, [facility] [address] [id number] [address] [place] [address], [place] [address] Nov, [facility] [address] [id number] [address] [place] [address], [place] [address] Nov, [facility] [address] [id number] [address] [place] [address], [place] [address] Oct, [facility] [address] [id number] [address] [place] [address], [place] [address] Oct, [facility] [address] [id number] [address] [place] [address], [place] [address] Oct, [facility] [address] [id number] [address] [place] [address], [place] [address] Oct, [facility] [address] [id number] [address] [place] [address], [place] [address] Oct, [facility] [address] [id number] [address] [place] [address], [place] [address] Oct, [facility] [address] [id number] [address] [place] [address], [place] [address] Sep, [facility] [address] [id number] [address] [place] [address], [place] [address] Sep, [facility] [address] [id number] [address] [place] [address], [place] [address] Sep, [facility] [address] [id number] [address] [place] [address], [place] [address] Sep, [facility] [address] [id number] [address] [place] [address], [place] [address] Sep, [facility] [address] [id number] [address] [place] [address], [place] [address] Sep, [facility] [address] [id number] [address] [place] [address], [place] [address] Sep, [facility] [address] [id number] [address] [place] [address], [place] [address] Aug, [facility] [address] [id number] [address] [place] [address], [place] [address] Aug, [facility] [address] [id number] [address] [place] [address], [place] [address] Aug, [facility] [address] [id number] [address] [place] [address], [place] [address] Aug, [facility] [address] [id number] [address] [place] [address], [place] [address] Aug, [facility] [address] [id number] [address] [place] [address], [place] [address] Aug, [facility] [address] [id number] [address] [place] [address], [place] [address] Aug, [facility] [address] [id number] [address] [place] [address], [place] [address] Aug, [facility] [address] [id number] [address] [place] [address], [place] [address] Aug, [facility] [address] [id number] [address] [place] [address], [place] [address] Aug, [facility] [address] [id number] [address] [place] [address], [place] [address] Aug, [facility] [address] [id number] [address] [place] [address], [place] [address] Aug, [facility] [address] [id number] [address] [place] [address], [place] [address] Aug, [facility] [address] [id number] [address] [place] [address], [place] [address] Aug, [facility] [address] [id number] [address] [place] [address], [place] [address] Jul, [facility] [address] [id number] [address] [place] [address] Jul, [facility] [address] [id number] [address] [place] [address] Jul, [facility] [address] [id number] [address] [place] [address] Jul, [facility] [address] [id number] [address] [place] [address], [place] [address] Jun, [facility] [address] [id number] [address] [place] [address], [place] [address] Jun, [facility] [address] [id number] [address] [place] [address], [place] [address] Jun, [facility] [address] [id number] [facility] [place] [address] 23 Jun, 2013 [facility] [address] [id number] [facility] [place] [address] 19 Jun, 2013 [facility] [address] [id number] [facility] [place] [address] 19 Jun, 2013 [facility] [address] [id number] [address] [place] [address], [place] [address] 11 Jun, 2013 [facility] [address] [id number] [address] [place] [address], [place] [address] 11 Jun, 2013 [facility] [address] [id number] [address] [place] [address], [place] [address] 11 Jun, 2013 [facility] [address] [id number] [address] [place] [address], [place] [address] 11 Jun, 2013 [facility] [address] [id number] [address] [place] [address], [place] [address] 10 Jun, 2013 [facility] [address] [id number] [address] [place] [address], [place] [address] 10 Jun, 2013 [facility] [address] [id number] [address] [place] [address], [place] [address] 09 Jun, 2013 [facility] [address] [id number] [address] [place] [address], [place] [address] 09 Jun, 2013 [facility] [address] [id number] [address] [place] [address], [place] [address] 14 May, 2014 [facility] [address] [id number] [address] [place] [address], [place] [address] 14 May, 2014 [facility] [address] [id number] [address] [place] [address], [place] [address] May, [facility] [address] [id number] [address] [place] [address], [place] [address] May, [facility] [address] [id number] [address] [place] [address], [place] [address] May, [facility] [address] [id number] [address] [place] [address], [place] [address] May, [facility] [address] [id number] [address] [place] [address], [place] [address] Apr, [facility] [address] [id number] [address] [place] [address], [place] [address] Apr, [facility] [address] [id number] [address] [place] [address], [place] [address] Apr, [facility] [address] [id number] [address] [place] [address], [place] [address] Apr, [facility] [address] [id number] [address] [place] [address], [place] [address] Apr, [facility] [address] [id number] [address] [place] [address], [place] [address] Apr, [facility] [address] [id number] [address] [place] [address], [place] [address] Apr, [facility] [address] [id number] [address] [place] [address], [place] [address] Apr, [facility] [address] [id number] [address] [place] [address], [place] [address] Apr, [facility] [address] [id number] [address] [place] [address], [place] [address] Apr, [facility] [address] [id number] [address] [place] [address], [place] [address] Apr, [facility] [address] [id number] [address] [place] [address], [place] [address] Mar, [facility] [address] [id number] [address] [place] [address], [place] [address] Mar, [facility] [address] [id number] [address] [place] [address], [place] [address] Mar, [facility] [address] [id number] [address] [place] [address], [place] [address] Mar, [facility] [address] [id number] [address] [place] [address], [place] [address] February, [facility] [address] [id number] [address] [place] [address], [place] [address] February, [facility] [address] [id number] [address] [place] [address], [place] [address] Jan, [facility] [address] [id number] [address] [place] [address], [place] [address] Jan, [facility] [address] [place] [id number] Jan, [facility] [address] [id number] [address] [place] [address], [place] [address] Jan, [facility] [address] [id number] [address] [place] [address], [place] [address] Jan, [facility] [address] [id number] [address] [place] [address], [place] [address] Jan, [facility] [address] [id number] [address] [place] [address], [place] [address] Jan, [facility] [address] [id number] [address] [place] [address], [place] [address] Jan, [facility] [address] [id number] [address] [place] [address], [place] [address] Jan, [facility] [address] [id number] [address] [place] [address], [place] [address] Jan, [facility] [address] [id number] [address] [place] [address], [place] [address] Jan, [facility] [address] [id number] [address] [place] [address], [place] [address] Jan, [facility] [address] [id number] [address] [place] [address], [place] [address] Jan, [facility] [address] [id number] [address] [place] [address], [place] [address] 07 Jan, 2014 [facility] [address] [id number] [address] [place] [address], [place] [address] Jan, [facility] [address] [id number] [address] [place] [address], [place] [address] Jan, [facility] [address] [id number] [address] [place] [address], [place] [address] Jan, [facility] [address] [id number] [address] [place] [address], [place] [address] Dec, [facility] [address] [id number] [address] [place] [address], [place] [address] Dec, [facility] [address] [id number] [address] [place] [address], [place] [address] Dec, [facility] [address] [id number] [address] [place] [address], [place] [address] Dec, [facility] [address] [id number] [address] [place] [address], [place] [address] Dec, [facility] [address] [id number] [address] [place] [address], [place] [address] Dec, [facility] [address] [id number] [address] [place] [address], [place] [address] Dec, [facility] [address] [id number] [address] [place] [address], [place] [address] Nov, [facility] [address] [id number] [address] [place] [address], [place] [address] Nov, [facility] [address] [id number] [address] [place] [address], [place] [address] Nov, [facility] [address] [id number] [address] [place] [address], [place] [address] Nov, [facility] [address] [id number] [address] [place] [address], [place] [address] Nov, [facility] [address] [id number] [address] [place] [address], [place] [address] Nov, [facility] [address] [id number] [address] [place] [address], [place] [address] Nov, [facility] [address] [id number] [address] [place] [address], [place] [address] Oct, [facility] [address] [id number] [address] [place] [address], [place] [address] Oct, [facility] [address] [id number] [address] [place] [address], [place] [address] Sep, [facility] [address] [id number] [address] [place] [address], [place] [address] Sep, [facility] [address] [id number] [address] [place] [address], [place] [address] Sep, [facility] [address] [id number] [address] [place] [address], [place] [address] Sep, [facility] [address] [id number] [address] [place] [address], [place] [address] Sep, [facility] [address] [id number] [address] [place] [address], [place] [address] Sep, [facility] [address] [id number] [address] [place] [address], [place] [address] Sep, [facility] [address] [id number] [address] [place] [address], [place] [address] Sep, [facility] [address] [id number] [address] [place] [address], [place] [address] Sep, [facility] [address] [id number] [address] [place] [address], [place] [address] Sep, [facility] [address] [id number] [address] [place] [address], [place] [address] Aug, [facility] [address] [id number] [address] [place] [address] Aug, [facility] [address] [facility] [id number] [address] [place] [address] Aug, [facility] [address] [facility] [id number] [address] [place] [address] Aug, [facility] [address] [facility] [id number] [address] [place] [address] Aug, [facility] [address] [facility] [id number] [address] [place] [address] Jul, [facility] [address] [facility] [id number] [address] [place] [address] Jul, [facility] [address] [facility] [id number] [address] [place] [address] Jul, [facility] [address] [facility] [id number] [address] [place] [address] Jul, IMMUNIZATIONS No Known Immunizations SOCIAL HISTORY [...]
--- OUTSIDE RECORDS SUMMARY | 2020-03-16 11:56 | XMS REPORT ---
Author Author Swathi Benavides Organization [facility] Address [address] [place] [address] Care Team Providers Care Glost Tile Shader Name Role Phone WIL Benavides Unavailable PROBLEMS Type Condition ICD9-CM Code ESM39-VC Code Onset Dates Condition S tatus SNOMED Code Problem Sensorineural hearing loss of right ear H90.41 Active 51497448 Problem Obstructive sleep apnea on CPAP G47.33 Active 79007661 Problem Periodic limb movement sleep disorder G47.61 Active 446085917 Problem Iron deficiency anemia due to chronic blood loss D 50.0 Active 09551465 Problem AMCHUCA (nonalcoholic steatohepatitis) K75.81 Active 018268370 Problem Vitamin B12 deficiency E53.8 Active 951977979 Problem Chronic diarrhea K52.9 Active 236 569443 Problem Vitamin D deficiency E55.9 Active 31292728 Problem BMI 50.0-59.9, adult Z68.43 Active 127208976 Problem Fatty liver K76.0 Active 97239205 7 Problem Anxiety F41.9 Active 18417209 Problem Major depressive disorder, recurrent episode, moderate F33.1 Active 640058134 Problem Chronic tension-type headache, intractable G44.221 Active 108134967 Problem Right upper quadrant pain R10.11 Acti ve 43570192 Problem Frequent falls R29.6 Active 16192 2002 Problem Crohn's disease of both small and large intestin e with complication K50.819 Active 39568884 Problem Type 2 diabetes mellitus with other specified complication E11.69 Active 729722103660 Problem Hyperlipidemia, unspecified E78.5 Ac tive 73484506 Problem Mixed stress and urge urinary incontinence N39.46 Active 842688503 Problem Sinusitis chronic, frontal J32.1 Act katlyn 51001089 Problem Seasonal allergies J30.2 Active 4 81075229 Problem Other chronic pain G89.29 Active 8 8208996 Problem Hyperlipidemia E78.5 Active 88170 004 Problem Bilateral primary osteoarthritis of knee M17.0 Active 437121606 Problem Essential hypertension I10 Active 97953591 Problem Acquired hypothyroidism E03.9 Active 953752336 Problem History of hysterectomy for benign disease Z90.710 Active 723866801 Problem Morbid (severe) obesity due to excess calories E66 .01 Active 190571586 Problem Other cirrhosis of liver K74.69 Activ e 27216567 Problem Portal hypertension K76.6 Active 05610828 ALLERGIES No Information ENCOUNTERS Encounter Location Date Diagnosis [place] [address] [address] [facility] [id number] [address] [place] [phone] February, [facility] [address] [facility] [place] [address] February, Acute recurrent pansinusitis J01.41 [facility] [address] [facility] [place] [address] February, Acute maxillary sinusitis, recurrence no t specified J01.00 [place] [address] [place] [id number] [address] [place] [address] Jan, Bilateral primary osteoarthr itis of knee M17.0 ; Morbid obesity E66.01 ; Viral syndrome B34.9 and Atrial dilatation, left I51.7 [place] [address] [place] [id number] [address] [place] [address] Jan, [place] [address] [place] [id number] [address] [place] [address] Dec, Trigeminy R00.8 [place] [address] [place] [id number] [address] [place] [address] Dec, Essential hypertension I10 ; Morbid obesity E66.01 ; Low back pain M54.5 ; Other chronic pain G89.29 and Pain in right knee M25.561 [place] [address] [place] [id number] [address] [place] [address] Nov, [place] [address] [place] [id number] [address] [place] [address] Oct, Palpitations R00.2 [place] [address] [place] [address] 30 Oct, 2018 Encounter for Medicare felipe jaffe wellness exam Z00.00 ; Major depressive disorder, [...] small and large intestine with complication K50.[address] [address] Oct, [place] [address] [address] 02 Oct, 2018 Crohn's disease of both smal l and large intestine with complication K50.819 [facility] [place] [id number] [place] [address] Jul, Sinusitis chronic, frontal J 32.1 ; Acute mucoid otitis media of both ears H65.113 ; Seasonal allergies J30.2 and BMI 50.0-59.9, adult Z68.43 [place] [id number] [place] [address] Jul, Essential hypertension I10 ; Type 2 diabetes mellitus with other specified complication E11.69 ; BMI 50.0-59.9, adult Z68.43 ; Mixed stress and urge urinary incontinence N39.46 and Mid back pain on right side M54.[address] [address] Jun, Iron deficiency anemia due t o chronic blood loss D50.0 ; Hyperlipidemia E78.5 ; Type 2 diabetes mellitus with other specified complication E11.69 ; Vitamin B12 deficiency E53.8 and Vitamin D deficiency E55.9 [facility] [address] [place] [address] [place] [address] 14 Jun, 2018 Cough R05 and BMI 50.0-59.9, adult Z68.43 [place] [address] [address] Jun, [place] [address] [address] May, Iron deficiency anemia due t o chronic blood loss D50.0 ; Chronic diarrhea K52.9 ; Essential hypertension I10 ; Type 2 diabetes mellitus with other specified complication E11.69 ; Vitamin D deficiency E55.9 ; Colon stricture K56.699 ; Vitamin B12 deficiency E53.8 ; Hyperlipidemia E78.5 and BMI 50.0-59.9, adult Z68.43 [place] [address] [address] May, [place] [address] [address] Apr, Nonhealing wound of heel S91 .309A and Body mass index (BMI) of 50- 59.9 in adult Z68.43 [place] [address] [address] Mar, [place] [address] [address] Mar, BMI 50.0-59.9, adult Z68.43 ; Flank pain R10.9 and Weight loss counseling, encounter for Z71.3 [place] [address] [place] [id number] [place] [address] February, [place] [address] [address] Jan, [place] [address] [place] [id number] [place] [address] Jan, [facility] [address] [place] [id number] [place] [address] Jan, Diarrhea due to staphylococc us A04.8 and Diarrhea, unspecified type R19.7 [place] [address] [address] Jan, Acquired hypothyroidism E03. 9 ; Type 2 diabetes mellitus with other specified complication E11.69 ; Hyperlipidemia E78.5 ; Essential hypertension I10 ; Major depressive disorder, recurrent episode, moderate F33.1 and Vitamin D deficiency E55.9 [place] [address] [address] Jan, Type 2 diabetes mellitus wit h other specified complication E11.69 ; Hyperlipidemia E78.5 ; Essential hypertension I10 ; Acquired hypothyroidism E03.9 ; Major depressive disorder, recurrent episode, moderate F33.1 ; Vitamin D deficiency E55.9 ; Sinus congestion R09.81 and BMI 50.0-59.9, adult Z68.43 [place] [address] [address] Dec, [place] [address] [address] Sep, Encounter for immunization Z 23 [place] [address] [address] Sep, [place] [address] [address] Sep, Vitamin B12 deficiency E53.8 [place] [address] [address] Aug, [place] [address] [address] Aug, BMI 60.0-69.9, adult Z68.44 and Acute non-recurrent maxillary sinusitis J01.00 [place] [address] [address] Aug, [place] [address] [address] Aug, Medicare annual wellness vis it, initial Z00.00 ; Screening for breast cancer Z12.31 ; BMI 40.0-44.9, adult Z68.41 and Acquired hypothyroidism E03.9 [place] [address] [facility] [id number] [address] [place] [address] Jul, Actinic keratosis L57.0 [place] [address] [place] [id number] [address] [place] [address] Jul, Actinic keratosis L57.0 [place] [address] [facility] [id number] [address] [place] [address] Jul, Type 2 diabetes mellitus wit h other specified complication E11.69 ; Actinic keratosis L57.0 and Hypothyroidism, unspecified E03.9 [place] [address] [place] [address] Jul, [place] [address] [address] Jul, [place] [address] [place] [id number] [place] [address] Jul, Vitamin B12 deficiency E53.8 [place] [address] [place] [address] Jun, Acquired hypothyroidism E03. 9 and Chronic tension-type headache, intractable G44.221 [place] [address] [place] [address] Jun, Back muscle spasm M62.830 an d BMI 50.0-59.9, adult Z68.43 [place] [address] [place] [id number] [address] [place] [address] Jun, Vitamin B12 deficiency E53.8 [place] [address] [place] [id number] [address] [place] [address] 05 Jun, 2017 Crohn's disease of both smal l and large intestine with complication K50.819 [place] [address] [address] Jun, Crohn's disease of both smal l and large intestine with complication K50.819 [place] [address] [address] May, Hyperlipidemia E78.5 ; Anxie ty F41.9 and Essential hypertension I10 [place] [address] [address] May, [place] [address] [address] May, Encounter for immunization Z 23 and Vitamin B12 deficiency E53.8 [place] [address] [address] May, [place] [address] [address] Apr, [place] [address] [address] Apr, [place] [address] [address] Apr, Crohn's disease of both smal l and large intestine with complication K50.819 [place] [address] [address] Apr, Vitamin B12 deficiency E53.8 [place] [address] [address] Apr, Crohn's disease of both smal l and large intestine with complication K50.819 and Acute pain of right shoulder M25.511 [place] [address] [address] Mar, Type 2 diabetes mellitus wit hout complication E11.9 ; Frequent falls R29.6 and Other chest pain R07.89 [place] [address] [address] Mar, [place] [address] [id number] [address] [place] [address] Mar, [facility] [address] [facility] [id number] [address] [place] [address] Mar, Type 2 diabetes mellitus wit hout complication E11.9 and Blurry vision, bilateral H53.8 [place] [address] [id number] [address] [place] [address] Mar, Vitamin B12 deficiency E53.8 [facility] [address] [id number] [address] [place] [address] Mar, Crohn's disease of both smal l and large intestine with complication K50.819 [place] [address] [facility] [id number] [address] [place] [address] February, Vitamin B12 deficiency E53.8 [place] [address] [facility] [id number] [address] [place] [address] Jan, Crohn's disease of both smal l and large intestine with complication K50.819 [place] [address] [id number] [address] [place] [address] Jan, Crohn's disease of both smal l and large intestine with complication K50.819 [facility] [address] [facility] [id number] [address] [place] [address] Jan, Dark brown-colored urine R82 .99 and Acute suppurative otitis media of right ear without spontaneous rupture of tympanic membrane, recurrence not specified H66.001 [place] [address] [facility] [id number] [address] [place] [address] Jan, Encounter for immunization Z 23 [place] [address] [facility] [id number] [address] [place] [address] Dec, Crohn's disease of both smal l and large intestine with complication K50.819 and Eustachian tube dysfunction, right H69.81 [facility] [address] [address] Dec, [place] [address] [address] Dec, Contusion of right knee, ini tial encounter S80.01XA [place] [address] [address] Dec, [place] [address] [address] Dec, Acute pain of right knee M25 .[address] [address] Dec, Iron deficiency anemia due t o chronic blood loss D50.[address] [address] Dec, Hyperlipidemia E78.5 ; Type 2 diabetes mellitus without complication E11.9 ; Vitamin B12 deficiency E53.8 ; Essential hypertension I10 ; Obstructive sleep apnea on CPAP G47.33 and Periodic limb movement sleep disorder G47.[address] [address] Nov, Type 2 diabetes mellitus wit hout complication E11.9 ; Vitamin B12 deficiency E53.8 ; Hyperlipidemia E78.5 ; Essential hypertension I10 ; Obstructive sleep apnea on CPAP G47.33 ; Periodic limb movement sleep disorder G47.61 ; Anxiety F41.9 ; Acquired hypothyroidism E03.9 and Chronic tension-type headache, intractable G44.221 [place] [address] [address] Nov, Crohn's disease of both smal l and large intestine with complication K50.[address] [address] Nov, Vitamin B12 deficiency E53.[address] [address] Oct, [place] [address] [id number] [address] [place] [address] Oct, Vitamin B12 deficiency E53.8 [facility] [address] [id number] [address] [place] [address] Sep, [facility] [address] [id number] [address] [place] [address] Sep, Vitamin B12 deficiency E53.8 [facility] [address] [id number] [address] [place] [address] Aug, [facility] [address] [id number] [address] [place] [address] Aug, Vitamin B12 deficiency E53.8 [facility] [address] [id number] [address] [place] [address] Aug, [facility] [address] [id number] [address] [place] [address] Jul, Elevated ALT measurement R74 .0 [facility] [address] [id number] [address] [place] [address] Jul, Hematuria R31.9 ; Acute righ t-sided thoracic back pain M54.6 ; Major depressive disorder, recurrent episode, moderate F33.1 and Elevated ALT measurement R74.0 [facility] [address] [id number] [address] [place] [address] Jul, [facility] [address] [id number] [address] [place] [address] Jul, Elevated ALT measurement R74 .0 [facility] [address] [id number] [address] [place] [address] 14 Jul, 2016 Iron deficiency anemia due t o chronic blood loss D50.0 [facility] [address] [id number] [address] [place] [address] 14 Jul, 2016 Type 2 diabetes mellitus wit hout complication E11.9 ; Acquired hypothyroidism E03.9 ; Iron deficiency anemia due to chronic blood loss D50.0 ; Hyperlipidemia E78.5 and Essential hypertension I10 [facility] [address] [id number] [address] [place] [address] 26 Jun, 2016 [facility] [address] [facility] [id number] [address] [place] [address] 20 Jun, 2016 Vitamin B12 deficiency E53.8 [facility] [address] [facility] [id number] [address] [place] [address] 16 Jun, 2016 Type 2 diabetes mellitus wit hout complication E11.9 ; Acquired hypothyroidism E03.9 ; Iron deficiency anemia due to chronic blood loss D50.0 ; Hyperlipidemia E78.5 ; Essential hypertension I10 ; Chronic tension-type headache, intractable G44.221 ; Pulsatile tinnitus, bilateral H93.13 ; Obstructive sleep apnea on CPAP G47.33 and Major depressive disorder, recurrent episode, moderate F33.1 [place] [address] [facility] [id number] [address] [place] [address] May, Vitamin B12 deficiency E53.8 [place] [address] [facility] [id number] [address] [place] [address] May, [place] [address] [facility] [id number] [address] [place] [address] Apr, Vitamin B12 deficiency E53.8 [place] [address] [facility] [id number] [address] [place] [address] Apr, [place] [address] [facility] [id number] [address] [place] [address] Mar, Chronic tension-type headach e, intractable G44.221 and Major depressive disorder, recurrent episode, moderate F33.1 [place] [address] [facility] [id number] [address] [place] [address] 14 Mar, 2016 Vitamin B12 deficiency E53.8 [facility] [address] [facility] [id number] [address] [place] [address] February, [facility] [address] [facility] [id number] [address] [place] [address] February, Vitamin B12 deficiency E53.8 [facility] [address] [id number] [address] [place] [address] February, [facility] [address] [id number] [address] [place] [address] 27 Jan, 2016 Dysuria R30.0 [facility] [address] [facility] [id number] [address] [place] [address] Jan, Type 2 diabetes mellitus wit hout complication E11.9 and Essential hypertension I10 [facility] [address] [id number] [address] [place] [address] 15 Jan, 2016 Chronic diarrhea K52.9 [facility] [address] [id number] [address] [place] [address] 13 Jan, 2016 [facility] [address] [facility] [id number] [address] [place] [address] Jan, Chronic diarrhea K52.9 [facility] [address] [id number] [address] [place] [address] Jan, [facility] [address] [id number] [address] [place] [address] 12 Jan, 2016 Dysuria R30.0 [facility] [address] [facility] [id number] [address] [place] [address] 07 Jan, 2016 Vitamin B12 deficiency E53.8 [facility] [address] [facility] [id number] [address] [place] [address] 07 Jan, 2016 Dysuria R30.0 and Iron defic iency anemia due to chronic blood loss D50.0 [facility] [address] [id number] [address] [place] [address] 05 Jan, 2016 Dysuria R30.0 [facility] [address] [facility] [id number] [address] [place] [address] 04 Jan, 2016 [facility] [address] [facility] [id number] [address] [place] [address] 15 Dec, 2015 [facility] [address] [facility] [id number] [address] [place] [address] 11 Dec, 2015 Iron deficiency anemia due t o chronic blood loss D50.0 [facility] [address] [facility] [id number] [address] [place] [address] 10 Dec, 2015 Dysuria R30.0 ; Fatigue R53. 83 ; Hyperlipidemia E78.5 and Diarrhea R19.7 [facility] [address] [facility] [id number] [address] [place] [address] Dec, [facility] [address] [facility] [id number] [address] [place] [address] Dec, [place] [address] [facility] [id number] [address] [place] [address] Nov, Vitamin B12 deficiency E53.8 [facility] [address] [facility] [id number] [address] [place] [address] Oct, Vitamin B12 deficiency E53.8 [facility] [address] [facility] [id number] [address] [place] [address] Oct, [facility] [address] [address] [id number] [address] [place] [address] Oct, Headache R51 [facility] [address] [facility] [id number] [address] [place] [address] 07 Oct, 2015 Essential hypertension I10 ; Type 2 diabetes mellitus without complication E11.9 ; Vitamin B12 deficiency E53.8 ; Acquired hypothyroidism E03.9 ; Iron deficiency anemia due to chronic blood loss D50.0 and Hyperlipidemia E78.5 [facility] [address] [facility] [id number] [address] [place] [address] Sep, Essential hypertension I10 ; Vitamin B12 deficiency E53.8 ; Iron deficiency anemia due to chronic blood loss D50.0 ; Type 2 diabetes mellitus without complication E11.9 ; Hyperlipidemia E78.5 and Acquired hypothyroidism E03.9 [facility] [address] [facility] [id number] [address] [place] [address] Sep, [facility] [address] [facility] [id number] [address] [place] [address] Sep, [facility] [address] [place] [id number] [address] [place] [address] Jul, [facility] [address] [facility] [id number] [address] [place] [address] Jun, [facility] [address] [facility] [address] [id number] [place] [address] Jun, [facility] [address] [facility] [id number] [address] [place] [address] Jun, Hyperlipidemia 272.4 ; Iron deficiency anemia 280.9 ; Hypothyroidism 244.9 ; Diabetes mellitus without mention of complication, type II or unspecified type, not stated as uncontrolled 250.00 and Hypertension 401.9 [facility] [address] [place] [address] Jun, [facility] [address] [place] [id number] [address] [place] [address] Jun, [facility] [address] [place] [id number] [address] [place] [address] May, Hyperlipidemia 272.4 [facility] [address] [place] [id number] [address] [place] [address] May, [facility] [address] [place] [id number] [address] [place] [address] May, [facility] [address] [facility] [id number] [address] [place] [address] Apr, Diabetes mellitus without me ntion of complication, type II or unspecified type, not stated as uncontrolled 250.00 ; Hypothyroidism 244.9 ; Hyperlipidemia 272.4 ; Pain in joint, lower leg 719.46 and RUQ pain 789.01 [facility] [address] [place] [id number] [address] [place] [address] Mar, Sinusitis 473.9 [facility] [address] [id number] [address] [place] [address] Mar, [facility] [address] [id number] [address] [place] [address] Mar, [facility] [address] [id number] [address] [place] [address] Mar, Hematochezia 578.1 [facility] [address] [id number] [address] [place] [id number] February, Sinusitis 473.9 [facility] [address] [id number] [address] [place] [address], [place] [id number] February, [facility] [address] [id number] [address] [place] [id number] 14 Jan, 2015 [facility] [facility] [address] [id number] [address] [place] [address] Jan, [facility] [address] [id number] [address] [place] [id number] Dec, [facility] [address] [id number] [address] [place] [address] Dec, [facility] [address] [id number] [address] [place] [address] Dec, [facility] [address] [id number] [address] [place] [address] Dec, [facility] [address] [id number] [address] [place] [address] 24 Dec, 2014 [facility] [address] [id number] [address] [place] [id number] 24 Dec, 2014 [facility] [address] [id number] [address] [place] [id number] 23 Dec, 2014 [facility] [address] [id number] [address] [place] [id number] 13 Dec, 2014 [facility] [address] [id number] [address] [place] [id number] Dec, [facility] [address] [id number] [address] [place] [address], [place] [address] Dec, [facility] [address] [id number] [address] [place] [address], [place] [address] Dec, [facility] [address] [id number] [address] [place] [address], [place] [address] Nov, [facility] [address] [id number] [address] [place] [address], [place] [address] Nov, [facility] [address] [id number] [address] [place] [address], [place] [address] Nov, [facility] [address] [id number] [address] [place] [address], [place] [address] Nov, [facility] [address] [id number] [address] [place] [address], [place] [address] Oct, [facility] [address] [id number] [address] [place] [address], [place] [address] Oct, [facility] [address] [id number] [address] [place] [address], [place] [address] Oct, [facility] [address] [id number] [address] [place] [address], [place] [address] Oct, [facility] [address] [id number] [address] [place] [address], [place] [address] Oct, [facility] [address] [id number] [address] [place] [address], [place] [address] Oct, [facility] [address] [id number] [address] [place] [address], [place] [address] Sep, [facility] [address] [id number] [address] [place] [address], [place] [address] Sep, [facility] [address] [id number] [address] [place] [address], [place] [address] Sep, [facility] [address] [id number] [address] [place] [address], [place] [address] Sep, [facility] [address] [id number] [address] [place] [address], [place] [address] Sep, [facility] [address] [id number] [address] [place] [address], [place] [address] Sep, [facility] [address] [id number] [address] [place] [address], [place] [address] Sep, [facility] [address] [id number] [address] [place] [address], [place] [address] Aug, [facility] [address] [id number] [address] [place] [address], [place] [address] Aug, [facility] [address] [id number] [address] [place] [address], [place] [address] Aug, [facility] [address] [id number] [address] [place] [address], [place] [address] Aug, [facility] [address] [id number] [address] [place] [address], [place] [address] Aug, [facility] [address] [id number] [address] [place] [address], [place] [address] Aug, [facility] [address] [id number] [address] [place] [address], [place] [address] Aug, [facility] [address] [id number] [address] [place] [address], [place] [address] Aug, [facility] [address] [id number] [address] [place] [address], [place] [address] Aug, [facility] [address] [id number] [address] [place] [address], [place] [address] 17 Aug, 2014 [facility] [address] [id number] [address] [place] [address], [place] [address] 13 Aug, 2014 [facility] [address] [id number] [address] [place] [address], [place] [address] Aug, [facility] [address] [id number] [address] [place] [address], [place] [address] Aug, [facility] [address] [id number] [address] [place] [address], [place] [address] Aug, [facility] [address] [id number] [address] [place] [address], [place] [address] Jul, [facility] [address] [id number] [address] [place] [address], [place] [address] Jul, [facility] [address] [id number] [address] [place] [address], [place] [address] Jul, [facility] [address] [id number] [address] [place] [address], [place] [address] Jul, [facility] [address] [id number] [address] [place] [address], [place] [address] 24 Jun, 2014 [facility] [address] [id number] [address] [place] [address], [place] [address] 24 Jun, 2013 [facility] [address] [id number] [address] [place] [address], [place] [address] 23 Jun, 2013 [facility] [address] [id number] [address] [place] [address], [place] [address] 23 Jun, 2013 [facility] [address] [id number] [address] [place] [address], [place] [address] 19 Jun, 2013 [facility] [address] [id number] [address] [place] [id number] 19 Jun, 2013 [facility] [address] [id number] [address] [place] [address], [place] [address] 11 Jun, 2013 [facility] [address] [id number] [address] [place] [address], [place] [address] 11 Jun, 2013 [facility] [address] [id number] [address] [place] [address], [place] [address] 11 Jun, 2013 [facility] [address] [id number] [facility] [place] [address] 11 Jun, 2014 [facility] [address] [id number] [facility] [place] [address] Jun, [facility] [address] [id number] [facility] [place] [address] Jun, [facility] [address] [id number] [address] [place] [address], [place] [address] Jun, [facility] [address] [id number] [address] [place] [address], [place] [address] Jun, [facility] [address] [id number] [address] [place] [address], [place] [address] May, [facility] [address] [id number] [address] [place] [address], [place] [address] May, [facility] [address] [id number] [address] [place] [address], [place] [address] May, [facility] [address] [id number] [address] [place] [address], [place] [address] May, [facility] [address] [id number] [address] [place] [address], [place] [address] May, [facility] [address] [id number] [address] [place] [address], [place] [address] May, [facility] [address] [id number] [address] [place] [address], [place] [address] Apr, [facility] [address] [id number] [address] [place] [address], [place] [address] Apr, [facility] [address] [id number] [address] [place] [address], [place] [address] Apr, [facility] [address] [id number] [address] [place] [address], [place] [address] Apr, [facility] [address] [id number] [address] [place] [address], [place] [address] Apr, [facility] [address] [id number] [address] [place] [address], [place] [address] Apr, [facility] [address] [id number] [address] [place] [address], [place] [address] Apr, [facility] [address] [id number] [address] [place] [address], [place] [address] Apr, [facility] [address] [id number] [address] [place] [address], [place] [address] Apr, [facility] [address] [id number] [address] [place] [address], [place] [address] Apr, [facility] [address] [id number] [address] [place] [address], [place] [address] Apr, [facility] [address] [id number] [address] [place] [address], [place] [address] Mar, [facility] [address] [id number] [address] [place] [address], [place] [address] Mar, [facility] [address] [id number] [address] [place] [address], [place] [address] Mar, [facility] [address] [id number] [address] [place] [address], [place] [address] Mar, [facility] [address] [id number] [address] [place] [address], [place] [address] February, [facility] [address] [id number] [address] [place] [address], [place] [address] February, [facility] [address] [id number] [address] [place] [address], [place] [address] Jan, [facility] [address] [id number] [address] [place] [address], [place] [address] Jan, [facility] [address] [place] [id number] Jan, [facility] [address] [id number] [address] [place] [address], [place] [address] Jan, [facility] [address] [id number] [facility] [place] [address] Jan, [facility] [address] [id number] [facility] [place] [address] Jan, [facility] [address] [id number] [address] [place] [address], [place] [address] Jan, [facility] [address] [id number] [address] [place] [address], [place] [address] Jan, [facility] [address] [id number] [address] [place] [address], [place] [address] Jan, [facility] [address] [id number] [address] [place] [address], [place] [address] Jan, [facility] [address] [id number] [address] [place] [address], [place] [address] Jan, [facility] [address] [id number] [address] [place] [address], [place] [address] Jan, [facility] [address] [id number] [address] [place] [address], [place] [address] Jan, [facility] [address] [id number] [address] [place] [address], [place] [address] Jan, [facility] [address] [id number] [address] [place] [address], [place] [address] Jan, [facility] [address] [id number] [address] [place] [address], [place] [address] Jan, [facility] [address] [id number] [address] [place] [address], [place] [address] Jan, [facility] [address] [id number] [address] [place] [address], [place] [address] Dec, [facility] [address] [id number] [address] [place] [address], [place] [address] Dec, [facility] [address] [id number] [address] [place] [address], [place] [address] Dec, [facility] [address] [id number] [address] [place] [address], [place] [address] Dec, [facility] [address] [id number] [address] [place] [address], [place] [address] Dec, [facility] [address] [id number] [address] [place] [address], [place] [address] Dec, [facility] [address] [id number] [address] [place] [address], [place] [address] Dec, [facility] [address] [id number] [address] [place] [address], [place] [address] Nov, [facility] [address] [id number] [address] [place] [address], [place] [address] Nov, [facility] [address] [id number] [address] [place] [address], [place] [address] Nov, [facility] [address] [id number] [address] [place] [address], [place] [address] Nov, [facility] [address] [id number] [address] [place] [address], [place] [address] Nov, [facility] [address] [id number] [address] [place] [address], [place] [address] Nov, [facility] [address] [id number] [address] [place] [address], [place] [address] Nov, [facility] [address] [id number] [address] [place] [address], [place] [address] Oct, [facility] [address] [id number] [address] [place] [address], [place] [address] Oct, [facility] [address] [id number] [address] [place] [address], [place] [address] Sep, [facility] [address] [id number] [address] [place] [address], [place] [address] Sep, [facility] [address] [id number] [address] [place] [address], [place] [address] Sep, [facility] [address] [id number] [address] [place] [address], [place] [address] Sep, [facility] [address] [id number] [address] [place] [address], [place] [address] Sep, [facility] [address] [id number] [address] [place] [address], [place] [address] Sep, [facility] [address] [id number] [address] [place] [address], [place] [address] Sep, [facility] [address] [id number] [address] [place] [address], [place] [address] Sep, [facility] [address] [id number] [address] [place] [address], [place] [address] Sep, [facility] [address] [id number] [address] [place] [address], [place] [address] Sep, [facility] [address] [id number] [address] [place] [address], [place] [address] Aug, [facility] [address] [id number] [address] [place] [address] Aug, [facility] [address] [id number] [address] [place] [address] Aug, [facility] [address] [id number] [address] [place] [address] Aug, [facility] [address] [id number] [address] [place] [address], [place] [address] Aug, [facility] [address] [id number] [address] [place] [address] Jul, [facility] [address] [id number] [address] [place] [address], [place] [address] Jul, [facility] [address] [id number] [address] [place] [address] Jul, [facility] [address] [id number] [address] [place] [address] Jul, IMMUNIZATIONS No Known Immunizations SOCIAL HISTORY [...]
--- OUTSIDE RECORDS SUMMARY | 2020-03-16 11:56 | XMS REPORT ---
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 Name Role Phone WIL Benavides Unavailable PROBLEMS Type Condition ICD9-CM Code [id number] Code Onset Dates Condition S tatus SNOMED Code Problem Sensorineural hearing loss of right ear H90.41 Active 49625606 Problem Obstructive sleep apnea on CPAP G47.33 Active 90019584 Problem Periodic limb movement sleep disorder G47.61 Active 319787724 Problem Iron deficiency anemia due to chronic blood loss D 50.0 Active 50363516 Problem MACHUCA (nonalcoholic steatohepatitis) K75.81 Active 112747337 Problem Vitamin B12 deficiency E53.8 Active 023238458 Problem Chronic diarrhea K52.9 Active 236 302493 Problem Vitamin D deficiency E55.9 Active 36027005 Problem BMI 50.0-59.9, adult Z68.43 Active 797136232 Problem Fatty liver K76.0 Active 25988359 7 Problem Anxiety F41.9 Active 86811552 Problem Major depressive disorder, recurrent episode, moderate F33.1 Active 980437421 Problem Chronic tension-type headache, intractable G44.221 Active 362303773 Problem Right upper quadrant pain R10.11 Acti ve 95519423 Problem Frequent falls R29.6 Active 02474 2002 Problem Crohn's disease of both small and large intestin e with complication K50.819 Active 83480406 Problem Type 2 diabetes mellitus with other specified complication E11.69 Active 397851078918 Problem Hyperlipidemia, unspecified E78.5 Ac tive 61277038 Problem Mixed stress and urge urinary incontinence N39.46 Active 044225854 Problem Sinusitis chronic, frontal J32.1 Act katlyn 51233085 Problem Seasonal allergies J30.2 Active 4 00252590 Problem Other chronic pain G89.29 Active 8 3774193 Problem Hyperlipidemia E78.5 Active 58554 004 Problem Bilateral primary osteoarthritis of knee M17.0 Active 104455998 Problem Essential hypertension I10 Active 17557013 Problem Acquired hypothyroidism E03.9 Active 767040220 Problem History of hysterectomy for benign disease Z90.710 Active 742162223 Problem Morbid (severe) obesity due to excess calories E66 .01 Active 323427740 Problem Other cirrhosis of liver K74.69 Activ e 20017991 Problem Portal hypertension K76.6 Active 75437650 ALLERGIES No Information ENCOUNTERS Encounter Location Date Diagnosis [place] [address] [address] [facility] [id number] [address] [place] [address] February, [facility] [address] [place] [address] February, Acute recurrent pansinusitis J01.41 [facility] [address] [place] [address] February, Acute maxillary sinusitis, recurrence no t specified J01.00 [place] [address] [place] [id number] [address] [place] [address] Jan, Bilateral primary osteoarthr itis of knee M17.0 ; Morbid obesity E66.01 ; Viral syndrome B34.9 and Atrial dilatation, left I51.7 [place] [address] [place] [id number] [address] [place] [address] Jan, [place] [address] [place] [id number] [address] [place] [address] Dec, Trigeminy R00.8 [place] [address] [place] [id number] [address] [place] [address] Dec, Essential hypertension I10 ; Morbid obesity E66.01 ; Low back pain M54.5 ; Other chronic pain G89.29 and Pain in right knee M25.561 [place] [address] [place] [id number] [address] [place] [address] Nov, [place] [id number] [place] [id number] [address] [place] [address] Oct, Palpitations R00.2 [place] [id number] [place] [address] 30 Oct, 2018 Encounter for Medicare felipe [...] small and large intestine with complication K50.[address] [address] Oct, [place] [address] [address] 02 Oct, 2018 Crohn's disease of both smal l and large intestine with complication K50.819 [facility] [place] [id number] [address] [place] [address] Jul, Sinusitis chronic, frontal J 32.1 ; Acute mucoid otitis media of both ears H65.113 ; Seasonal allergies J30.2 and BMI 50.0-59.9, adult Z68.43 [place] [id number] [place] [address] Jul, Essential hypertension I10 ; Type 2 diabetes mellitus with other specified complication E11.69 ; BMI 50.0-59.9, adult Z68.43 ; Mixed stress and urge urinary incontinence N39.46 and Mid back pain on right side M54.[address] [address] Jun, Iron deficiency anemia due t o chronic blood loss D50.0 ; Hyperlipidemia E78.5 ; Type 2 diabetes mellitus with other specified complication E11.69 ; Vitamin B12 deficiency E53.8 and Vitamin D deficiency E55.9 [facility] [address] [place] [address] 14 Jun, 2018 Cough R05 and BMI 50.0-59.9, adult Z68.43 [place] [address] [address] Jun, [place] [address] [address] May, Iron deficiency anemia due t o chronic blood loss D50.0 ; Chronic diarrhea K52.9 ; Essential hypertension I10 ; Type 2 diabetes mellitus with other specified complication E11.69 ; Vitamin D deficiency E55.9 ; Colon stricture K56.699 ; Vitamin B12 deficiency E53.8 ; Hyperlipidemia E78.5 and BMI 50.0-59.9, adult Z68.43 [place] [address] [address] May, [place] [address] [address] Apr, Nonhealing wound of heel S91 .309A and Body mass index (BMI) of 50- 59.9 in adult Z68.43 [place] [address] [address] Mar, [place] [address] [address] Mar, BMI 50.0-59.9, adult Z68.43 ; Flank pain R10.9 and Weight loss counseling, encounter for Z71.3 [place] [address] [place] [id number] [address] [place] [address] February, [place] [address] [address] Jan, [place] [address] [place] [id number] [address] [place] [address] Jan, [facility] [address] [place] [id number] [address] [place] [address] Jan, Diarrhea due to staphylococc us A04.8 and Diarrhea, unspecified type R19.7 [place] [address] [address] Jan, Acquired hypothyroidism E03. 9 ; Type 2 diabetes mellitus with other specified complication E11.69 ; Hyperlipidemia E78.5 ; Essential hypertension I10 ; Major depressive disorder, recurrent episode, moderate F33.1 and Vitamin D deficiency E55.9 [place] [address] [address] Jan, Type 2 diabetes mellitus wit h other specified complication E11.69 ; Hyperlipidemia E78.5 ; Essential hypertension I10 ; Acquired hypothyroidism E03.9 ; Major depressive disorder, recurrent episode, moderate F33.1 ; Vitamin D deficiency E55.9 ; Sinus congestion R09.81 and BMI 50.0-59.9, adult Z68.43 [place] [address] [address] Dec, [place] [address] [address] Sep, Encounter for immunization Z 23 [place] [address] [address] Sep, [place] [address] [address] Sep, Vitamin B12 deficiency E53.8 [place] [address] [address] Aug, [place] [address] [address] Aug, BMI 60.0-69.9, adult Z68.44 and Acute non-recurrent maxillary sinusitis J01.00 [place] [address] [address] Aug, [place] [address] [address] Aug, Medicare annual wellness vis it, initial Z00.00 ; Screening for breast cancer Z12.31 ; BMI 40.0-44.9, adult Z68.41 and Acquired hypothyroidism E03.9 [place] [address] [address] [facility] [id number] [address] [place] [address] Jul, Actinic keratosis L57.0 [place] [address] [place] [id number] [address] [place] [address] Jul, Actinic keratosis L57.0 [place] [address] [address] [facility] [id number] [address] [place] [address] Jul, Type 2 diabetes mellitus wit h other specified complication E11.69 ; Actinic keratosis L57.0 and Hypothyroidism, unspecified E03.9 [place] [address] [place] [address] Jul, [place] [address] [address] Jul, [place] [address] [place] [id number] [address] [place] [address] Jul, Vitamin B12 deficiency E53.8 [place] [address] [place] [address] Jun, Acquired hypothyroidism E03. 9 and Chronic tension-type headache, intractable G44.221 [place] [address] [place] [address] Jun, Back muscle spasm M62.830 an d BMI 50.0-59.9, adult Z68.43 [place] [address] [place] [id number] [address] [place] [address] Jun, Vitamin B12 deficiency E53.8 [place] [address] [place] [id number] [address] [place] [address] 05 Jun, 2017 Crohn's disease of both smal l and large intestine with complication K50.819 [place] [address] [address] Jun, Crohn's disease of both smal l and large intestine with complication K50.819 [place] [address] [address] May, Hyperlipidemia E78.5 ; Anxie ty F41.9 and Essential hypertension I10 [place] [address] [address] May, [place] [address] [address] May, Encounter for immunization Z 23 and Vitamin B12 deficiency E53.8 [place] [address] [address] May, [place] [address] [address] Apr, [place] [address] [address] Apr, [place] [address] [address] Apr, Crohn's disease of both smal l and large intestine with complication K50.819 [place] [address] [address] Apr, Vitamin B12 deficiency E53.8 [place] [address] [address] Apr, Crohn's disease of both smal l and large intestine with complication K50.819 and Acute pain of right shoulder M25.511 [place] [address] [address] Mar, Type 2 diabetes mellitus wit hout complication E11.9 ; Frequent falls R29.6 and Other chest pain R07.89 [place] [address] [address] Mar, [place] [address] [id number] [address] [place] [address] Mar, [facility] [address] [facility] [id number] [address] [place] [address] Mar, Type 2 diabetes mellitus wit hout complication E11.9 and Blurry vision, bilateral H53.8 [place] [address] [id number] [address] [place] [address] Mar, Vitamin B12 deficiency E53.8 [facility] [address] [id number] [address] [place] [address] Mar, Crohn's disease of both smal l and large intestine with complication K50.819 [place] [address] [facility] [id number] [address] [place] [address] February, Vitamin B12 deficiency E53.8 [place] [address] [facility] [id number] [address] [place] [address] Jan, Crohn's disease of both smal l and large intestine with complication K50.819 [place] [address] [id number] [address] [place] [address] Jan, Crohn's disease of both smal l and large intestine with complication K50.819 [facility] [address] [facility] [id number] [address] [place] [address] Jan, Dark brown-colored urine R82 .99 and Acute suppurative otitis media of right ear without spontaneous rupture of tympanic membrane, recurrence not specified H66.001 [place] [address] [facility] [id number] [address] [place] [address] Jan, Encounter for immunization Z 23 [place] [address] [facility] [id number] [address] [place] [address] Dec, Crohn's disease of both smal l and large intestine with complication K50.819 and Eustachian tube dysfunction, right H69.81 [facility] [address] [place] [address] [address] Dec, [place] [address] [address] Dec, Contusion of right knee, ini tial encounter S80.01XA [place] [address] [address] Dec, [place] [address] [address] Dec, Acute pain of right knee M25 .[address] [address] Dec, Iron deficiency anemia due t o chronic blood loss D50.[address] [address] Dec, Hyperlipidemia E78.5 ; Type 2 diabetes mellitus without complication E11.9 ; Vitamin B12 deficiency E53.8 ; Essential hypertension I10 ; Obstructive sleep apnea on CPAP G47.33 and Periodic limb movement sleep disorder G47.[address] [address] Nov, Type 2 diabetes mellitus wit hout complication E11.9 ; Vitamin B12 deficiency E53.8 ; Hyperlipidemia E78.5 ; Essential hypertension I10 ; Obstructive sleep apnea on CPAP G47.33 ; Periodic limb movement sleep disorder G47.61 ; Anxiety F41.9 ; Acquired hypothyroidism E03.9 and Chronic tension-type headache, intractable G44.221 [place] [address] [address] Nov, Crohn's disease of both smal l and large intestine with complication K50.[address] [address] Nov, Vitamin B12 deficiency E53.[address] [address] Oct, [place] [address] [id number] [address] [place] [address] Oct, Vitamin B12 deficiency E53.8 [facility] [address] [id number] [address] [place] [address] Sep, [facility] [address] [id number] [address] [place] [address] Sep, Vitamin B12 deficiency E53.8 [facility] [address] [id number] [address] [place] [address] Aug, [facility] [address] [id number] [address] [place] [address] Aug, Vitamin B12 deficiency E53.8 [facility] [address] [id number] [address] [place] [address] Aug, [facility] [address] [id number] [address] [place] [address] Jul, Elevated ALT measurement R74 .0 [facility] [address] [id number] [address] [place] [address] Jul, Hematuria R31.9 ; Acute righ t-sided thoracic back pain M54.6 ; Major depressive disorder, recurrent episode, moderate F33.1 and Elevated ALT measurement R74.0 [facility] [address] [id number] [address] [place] [address] Jul, [facility] [address] [id number] [address] [place] [address] Jul, Elevated ALT measurement R74 .0 [facility] [address] [id number] [address] [place] [address] 14 Jul, 2016 Iron deficiency anemia due t o chronic blood loss D50.0 [facility] [address] [id number] [address] [place] [address] 14 Jul, 2016 Type 2 diabetes mellitus wit hout complication E11.9 ; Acquired hypothyroidism E03.9 ; Iron deficiency anemia due to chronic blood loss D50.0 ; Hyperlipidemia E78.5 and Essential hypertension I10 [facility] [address] [id number] [address] [place] [address] 26 Jun, 2016 [facility] [address] [facility] [id number] [address] [place] [address] 20 Jun, 2016 Vitamin B12 deficiency E53.8 [facility] [address] [facility] [id number] [address] [place] [address] 16 Jun, 2016 Type 2 diabetes mellitus wit hout complication E11.9 ; Acquired hypothyroidism E03.9 ; Iron deficiency anemia due to chronic blood loss D50.0 ; Hyperlipidemia E78.5 ; Essential hypertension I10 ; Chronic tension-type headache, intractable G44.221 ; Pulsatile tinnitus, bilateral H93.13 ; Obstructive sleep apnea on CPAP G47.33 and Major depressive disorder, recurrent episode, moderate F33.1 [place] [address] [facility] [id number] [address] [place] [address] May, Vitamin B12 deficiency E53.8 [place] [address] [facility] [id number] [address] [place] [address] May, [place] [address] [facility] [id number] [address] [place] [address] Apr, Vitamin B12 deficiency E53.8 [place] [address] [facility] [id number] [address] [place] [address] Apr, [place] [address] [facility] [id number] [address] [place] [address] Mar, Chronic tension-type headach e, intractable G44.221 and Major depressive disorder, recurrent episode, moderate F33.1 [place] [address] [facility] [id number] [address] [place] [address] 14 Mar, 2016 Vitamin B12 deficiency E53.8 [facility] [address] [facility] [id number] [address] [place] [address] February, [facility] [address] [facility] [id number] [address] [place] [address] February, Vitamin B12 deficiency E53.8 [facility] [address] [id number] [address] [place] [address] February, [facility] [address] [id number] [address] [place] [address] 27 Jan, 2016 Dysuria R30.0 [facility] [address] [facility] [id number] [address] [place] [address] Jan, Type 2 diabetes mellitus wit hout complication E11.9 and Essential hypertension I10 [facility] [address] [id number] [address] [place] [address] 15 Jan, 2016 Chronic diarrhea K52.9 [facility] [address] [id number] [address] [place] [address] 13 Jan, 2016 [facility] [address] [facility] [id number] [address] [place] [address] Jan, Chronic diarrhea K52.9 [facility] [address] [id number] [address] [place] [address] Jan, [facility] [address] [id number] [address] [place] [address] 12 Jan, 2016 Dysuria R30.0 [facility] [address] [facility] [id number] [address] [place] [address] 07 Jan, 2016 Vitamin B12 deficiency E53.8 [facility] [address] [facility] [id number] [address] [place] [address] 07 Jan, 2016 Dysuria R30.0 and Iron defic iency anemia due to chronic blood loss D50.0 [facility] [address] [id number] [address] [place] [address] 05 Jan, 2016 Dysuria R30.0 [facility] [address] [facility] [id number] [address] [place] [address] 04 Jan, 2016 [facility] [address] [facility] [id number] [address] [place] [address] 15 Dec, 2015 [facility] [address] [facility] [id number] [address] [place] [address] 11 Dec, 2015 Iron deficiency anemia due t o chronic blood loss D50.0 [facility] [address] [facility] [id number] [address] [place] [address] 10 Dec, 2015 Dysuria R30.0 ; Fatigue R53. 83 ; Hyperlipidemia E78.5 and Diarrhea R19.7 [facility] [address] [facility] [id number] [address] [place] [address] Dec, [facility] [address] [facility] [id number] [address] [place] [address] Dec, [place] [address] [facility] [id number] [address] [place] [address] Nov, Vitamin B12 deficiency E53.8 [facility] [address] [facility] [id number] [address] [place] [address] Oct, Vitamin B12 deficiency E53.8 [facility] [address] [facility] [id number] [address] [place] [address] Oct, [facility] [address] [facility] [id number] [address] [place] [address] Oct, Headache R51 [facility] [address] [facility] [id number] [address] [place] [address] 07 Oct, 2015 Essential hypertension I10 ; Type 2 diabetes mellitus without complication E11.9 ; Vitamin B12 deficiency E53.8 ; Acquired hypothyroidism E03.9 ; Iron deficiency anemia due to chronic blood loss D50.0 and Hyperlipidemia E78.5 [facility] [address] [facility] [id number] [address] [place] [address] Sep, Essential hypertension I10 ; Vitamin B12 deficiency E53.8 ; Iron deficiency anemia due to chronic blood loss D50.0 ; Type 2 diabetes mellitus without complication E11.9 ; Hyperlipidemia E78.5 and Acquired hypothyroidism E03.9 [facility] [address] [facility] [id number] [address] [place] [address] Sep, [facility] [address] [facility] [id number] [address] [place] [address] Sep, [facility] [address] [place] [id number] [address] [place] [phone] Jul, [facility] [address] [facility] [id number] [address] [place] [address] Jun, [facility] [address] [facility] [id number] [place] [phone] Jun, [facility] [address] [facility] [id number] [address] [place] [address] Jun, Hyperlipidemia 272.4 ; Iron deficiency anemia 280.9 ; Hypothyroidism 244.9 ; Diabetes mellitus without mention of complication, type II or unspecified type, not stated as uncontrolled 250.00 and Hypertension 401.9 [facility] [id number] [place] [address] Jun, [facility] [address] [place] [id number] [address] [place] [id number] Jun, [facility] [address] [place] [id number] [address] [place] [phone] May, Hyperlipidemia 272.4 [facility] [address] [place] [id number] [place] [id number] May, [facility] [address] [place] [id number] [place] [id number] May, [facility] [address] [facility] [id number] [address] [place] [id number] Apr, Diabetes mellitus without me ntion of complication, type II or unspecified type, not stated as uncontrolled 250.00 ; Hypothyroidism 244.9 ; Hyperlipidemia 272.4 ; Pain in joint, lower leg 719.46 and RUQ pain 789.01 [facility] [address] [id number] [address] [place] [address] Mar, Sinusitis 473.9 [facility] [address] [id number] [address] [place] [address] Mar, [facility] [address] [id number] [address] [place] [address] Mar, [facility] [address] [id number] [address] [place] [address] Mar, Hematochezia 578.1 [facility] [address] [id number] [address] [place] [address] February, Sinusitis 473.9 [facility] [address] [id number] [address] [place] [address], [place] [address] February, [facility] [address] [id number] [address] [place] [address] 14 Jan, 2015 [facility] [address] [id number] [address] [place] [address] Jan, [facility] [address] [id number] [address] [place] [address] Dec, [facility] [address] [id number] [address] [place] [address] Dec, [facility] [address] [id number] [address] [place] [address] Dec, [facility] [address] [id number] [address] [place] [address] Dec, [facility] [address] [id number] [address] [place] [address] 24 Dec, 2014 [facility] [address] [id number] [address] [place] [address] 24 Dec, 2014 [facility] [address] [id number] [address] [place] [address] 23 Dec, 2014 [facility] [address] [id number] [address] [place] [address] 13 Dec, 2014 [facility] [address] [id number] [address] [place] [address] Dec, [facility] [address] [id number] [address] [place] [address], [place] [address] Dec, [facility] [address] [id number] [address] [place] [address], [place] [address] Dec, [facility] [address] [id number] [address] [place] [address], [place] [address] Nov, [facility] [address] [id number] [address] [place] [address], [place] [address] Nov, [facility] [address] [id number] [address] [place] [address], [place] [address] Nov, [facility] [address] [id number] [address] [place] [address], [place] [address] Nov, [facility] [address] [id number] [address] [place] [address], [place] [address] Oct, [facility] [address] [id number] [address] [place] [address], [place] [address] Oct, [facility] [address] [id number] [address] [place] [address], [place] [address] Oct, [facility] [address] [id number] [address] [place] [address], [place] [address] Oct, [facility] [address] [id number] [address] [place] [address], [place] [address] Oct, [facility] [address] [id number] [address] [place] [address], [place] [address] Oct, [facility] [address] [id number] [address] [place] [address], [place] [address] Sep, [facility] [address] [id number] [address] [place] [address], [place] [address] Sep, [facility] [address] [id number] [address] [place] [address], [place] [address] Sep, [facility] [address] [id number] [address] [place] [address], [place] [address] Sep, [facility] [address] [id number] [address] [place] [address], [place] [address] Sep, [facility] [address] [id number] [address] [place] [address], [place] [address] Sep, [facility] [address] [id number] [address] [place] [address], [place] [address] Sep, [facility] [address] [id number] [address] [place] [address], [place] [address] Aug, [facility] [address] [id number] [address] [place] [address], [place] [address] Aug, [facility] [address] [id number] [address] [place] [address], [place] [address] Aug, [facility] [address] [id number] [address] [place] [address], [place] [address] Aug, [facility] [address] [id number] [address] [place] [address], [place] [address] Aug, [facility] [address] [id number] [address] [place] [address], [place] [address] Aug, [facility] [address] [id number] [address] [place] [address], [place] [address] Aug, [facility] [address] [id number] [address] [place] [address], [place] [address] Aug, [facility] [address] [id number] [address] [place] [address], [place] [address] Aug, [facility] [address] [id number] [address] [place] [address], [place] [address] 17 Aug, 2014 [facility] [address] [id number] [address] [place] [address], [place] [address] 13 Aug, 2014 [facility] [address] [id number] [address] [place] [address], [place] [address] Aug, [facility] [address] [id number] [address] [place] [address], [place] [address] Aug, [facility] [address] [id number] [address] [place] [address], [place] [address] Aug, [facility] [address] [id number] [address] [place] [address], [place] [address] Jul, [facility] [address] [id number] [address] [place] [address], [place] [address] Jul, [facility] [address] [id number] [address] [place] [address], [place] [address] Jul, [facility] [address] [id number] [address] [place] [address], [place] [address] Jul, [facility] [address] [id number] [address] [place] [address], [place] [address] 24 Jun, 2014 [facility] [address] [id number] [address] [place] [address], [place] [address] 24 Jun, 2013 [facility] [address] [id number] [address] [place] [address], [place] [address] 23 Jun, 2013 [facility] [address] [id number] [address] [place] [address], [place] [address] 23 Jun, 2013 [facility] [address] [id number] [address] [place] [address], [place] [address] 19 Jun, 2013 [facility] [address] [id number] [address] [place] [address] 19 Jun, 2013 [facility] [address] [id number] [address] [place] [address], [place] [address] 11 Jun, 2013 [facility] [address] [id number] [address] [place] [address], [place] [address] 11 Jun, 2013 [facility] [address] [id number] [address] [place] [address], [place] [address] 11 Jun, 2013 [facility] [address] [id number] [facility] [place] [address] 11 Jun, 2014 [facility] [address] [id number] [facility] [place] [address] Jun, [facility] [address] [id number] [facility] [place] [address] Jun, [facility] [address] [id number] [address] [place] [address], [place] [address] Jun, [facility] [address] [id number] [address] [place] [address], [place] [address] Jun, [facility] [address] [id number] [address] [place] [address], [place] [address] May, [facility] [address] [id number] [address] [place] [address], [place] [address] May, [facility] [address] [id number] [address] [place] [address], [place] [address] May, [facility] [address] [id number] [address] [place] [address], [place] [address] May, [facility] [address] [id number] [address] [place] [address], [place] [address] May, [facility] [address] [id number] [address] [place] [address], [place] [address] May, [facility] [address] [id number] [address] [place] [address], [place] [address] Apr, [facility] [address] [id number] [address] [place] [address], [place] [address] Apr, [facility] [address] [id number] [address] [place] [address], [place] [address] Apr, [facility] [address] [id number] [address] [place] [address], [place] [address] Apr, [facility] [address] [id number] [address] [place] [address], [place] [address] Apr, [facility] [address] [id number] [address] [place] [address], [place] [address] Apr, [facility] [address] [id number] [address] [place] [address], [place] [address] Apr, [facility] [address] [id number] [address] [place] [address], [place] [address] Apr, [facility] [address] [id number] [address] [place] [address], [place] [address] Apr, [facility] [address] [id number] [address] [place] [address], [place] [address] Apr, [facility] [address] [id number] [address] [place] [address], [place] [address] Apr, [facility] [address] [id number] [address] [place] [address], [place] [address] Mar, [facility] [address] [id number] [address] [place] [address], [place] [address] Mar, [facility] [address] [id number] [address] [place] [address], [place] [address] Mar, [facility] [address] [id number] [address] [place] [address], [place] [address] Mar, [facility] [address] [id number] [address] [place] [address], [place] [address] February, [facility] [address] [id number] [address] [place] [address], [place] [address] February, [facility] [address] [id number] [address] [place] [address], [place] [address] Jan, [facility] [address] [id number] [address] [place] [address], [place] [address] Jan, [facility] [address] [place] [id number] Jan, [facility] [address] [id number] [address] [place] [address], [place] [address] Jan, [facility] [address] [id number] [facility] [place] [address] Jan, [facility] [address] [id number] [facility] [place] [address] Jan, [facility] [address] [id number] [address] [place] [address], [place] [address] Jan, [facility] [address] [id number] [address] [place] [address], [place] [address] Jan, [facility] [address] [id number] [address] [place] [address], [place] [address] Jan, [facility] [address] [id number] [address] [place] [address], [place] [address] Jan, [facility] [address] [id number] [address] [place] [address], [place] [address] Jan, [facility] [address] [id number] [address] [place] [address], [place] [address] Jan, [facility] [address] [id number] [address] [place] [address], [place] [address] Jan, [facility] [address] [id number] [address] [place] [address], [place] [address] Jan, [facility] [address] [id number] [address] [place] [address], [place] [address] Jan, [facility] [address] [id number] [address] [place] [address], [place] [address] Jan, [facility] [address] [id number] [address] [place] [address], [place] [address] Jan, [facility] [address] [id number] [address] [place] [address], [place] [address] Dec, [facility] [address] [id number] [address] [place] [address], [place] [address] Dec, [facility] [address] [id number] [address] [place] [address], [place] [address] Dec, [facility] [address] [id number] [address] [place] [address], [place] [address] Dec, [facility] [address] [id number] [address] [place] [address], [place] [address] Dec, [facility] [address] [id number] [address] [place] [address], [place] [address] Dec, [facility] [address] [id number] [address] [place] [address], [place] [address] Dec, [facility] [address] [id number] [address] [place] [address], [place] [address] Nov, [facility] [address] [id number] [address] [place] [address], [place] [address] Nov, [facility] [address] [id number] [address] [place] [address], [place] [address] Nov, [facility] [address] [id number] [address] [place] [address], [place] [address] Nov, [facility] [address] [id number] [address] [place] [address], [place] [address] Nov, [facility] [address] [id number] [address] [place] [address], [place] [address] Nov, [facility] [address] [id number] [address] [place] [address], [place] [address] Nov, [facility] [address] [id number] [address] [place] [address], [place] [address] Oct, [facility] [address] [id number] [address] [place] [address], [place] [address] Oct, [facility] [address] [id number] [address] [place] [address], [place] [address] Sep, [facility] [address] [id number] [address] [place] [address], [place] [address] Sep, [facility] [address] [id number] [address] [place] [address], [place] [address] Sep, [facility] [address] [id number] [address] [place] [address], [place] [address] Sep, [facility] [address] [id number] [address] [place] [address], [place] [address] Sep, [facility] [address] [id number] [address] [place] [address], [place] [address] Sep, [facility] [address] [id number] [address] [place] [address], [place] [address] Sep, [facility] [address] [id number] [address] [place] [address], [place] [address] Sep, [facility] [address] [id number] [address] [place] [address], [place] [address] Sep, [facility] [address] [id number] [address] [place] [address], [place] [address] Sep, [facility] [address] [id number] [address] [place] [address], [place] [address] Aug, [facility] [address] [id number] [address] [place] [address] Aug, [facility] [address] [id number] [address] [place] [address] Aug, [facility] [address] [id number] [address] [place] [address] Aug, [facility] [address] [id number] [address] [place] [address], [place] [address] Aug, [facility] [address] [id number] [address] [place] [address] Jul, [facility] [address] [id number] [address] [place] [address], [place] [address] Jul, [facility] [address] [id number] [address] [place] [address] Jul, [facility] [address] [facility] [id number] [address] [place] [address] Jul, IMMUNIZATIONS No Known Immunizations SOCIAL HISTORY Never Assessed REASON FOR VISIT PLAN OF CARE VITAL SIGNS MEDICATIONS Unknown Medications RESULTS No Results PROCEDURES Procedure Date Ordered Result Body Site CT ABD&PELV 1+ SECTION/REGNS Aug 27, 2014 INSTRUCTIONS MEDICATIONS ADMINISTERED No Known Medications [...]
--- OUTSIDE RECORDS SUMMARY | 2020-03-16 11:57 | XMS REPORT ---
Author Author Swathi Benavides Organization [facility] Address [address] [place] [address] Care Team Providers Care Utilities Manager Name Role Phone IWL Benavides Unavailable PROBLEMS Type Condition ICD9-CM Code NAI61-LA Code Onset Dates Condition S tatus SNOMED Code Problem Sensorineural hearing loss of right ear H90.41 Active 79173585 Problem Obstructive sleep apnea on CPAP G47.33 Active 88963722 Problem Periodic limb movement sleep disorder G47.61 Active 844762688 Problem Iron deficiency anemia due to chronic blood loss D 50.0 Active 60317144 Problem MACHUCA (nonalcoholic steatohepatitis) K75.81 Active 301923478 Problem Vitamin B12 deficiency E53.8 Active 700637314 Problem Chronic diarrhea K52.9 Active 236 878112 Problem Vitamin D deficiency E55.9 Active 53458772 Problem BMI 50.0-59.9, adult Z68.43 Active 238470193 Problem Fatty liver K76.0 Active 33772560 7 Problem Anxiety F41.9 Active 70164685 Problem Major depressive disorder, recurrent episode, moderate F33.1 Active 473288555 Problem Chronic tension-type headache, intractable G44.221 Active 673681985 Problem Right upper quadrant pain R10.11 Acti ve 58275131 Problem Frequent falls R29.6 Active 59268 2002 Problem Crohn's disease of both small and large intestin e with complication K50.819 Active 34912164 Problem Type 2 diabetes mellitus with other specified complication E11.69 Active 450737926395 Problem Hyperlipidemia, unspecified E78.5 Ac tive 28770032 Problem Mixed stress and urge urinary incontinence N39.46 Active 884040129 Problem Sinusitis chronic, frontal J32.1 Act katlyn 94355138 Problem Seasonal allergies J30.2 Active 4 82981680 Problem Other chronic pain G89.29 Active 8 7570162 Problem Hyperlipidemia E78.5 Active 40409 004 Problem Bilateral primary osteoarthritis of knee M17.0 Active 803645818 Problem Essential hypertension I10 Active 49018473 Problem Acquired hypothyroidism E03.9 Active 064287782 Problem History of hysterectomy for benign disease Z90.710 Active 988086738 Problem Morbid (severe) obesity due to excess calories E66 .01 Active 588861140 Problem Other cirrhosis of liver K74.69 Activ e 65725428 Problem Portal hypertension K76.6 Active 04170687 ALLERGIES No Information ENCOUNTERS Encounter Location Date Diagnosis [place] [address] [address] [facility] [id number] [address] [place] [address] February, [facility] WALK IN [facility] [address] [facility] [place] [address] February, Acute recurrent pansinusitis J01.41 [facility] IN [facility] [address] [facility] [place] [address] February, Acute maxillary sinusitis, recurrence no t specified J01.00 [place] [address] [address] [place] [id number] [address] [place] [address] Jan, Bilateral primary osteoarthr itis of knee M17.0 ; Morbid obesity E66.01 ; Viral syndrome B34.9 and Atrial dilatation, left I51.7 [place] [address] [address] [place] [id number] [address] [place] [address] Jan, [place] [address] [address] [place] [id number] [address] [place] [address] Dec, Trigeminy R00.8 [place] [address] [address] [place] [id number] [address] [place] [address] Dec, Essential hypertension I10 ; Morbid obesity E66.01 ; Low back pain M54.5 ; Other chronic pain G89.29 and Pain in right knee M25.561 [place] [address] [address] [place] [id number] [address] [place] [address] Nov, [place] [address] [place] [id number] [address] [place] [address] Oct, Palpitations R00.2 [place] [id number] [place] [address] 30 Oct, 2018 Encounter for Medicare felipe [...] small and large intestine with complication K50.[address] [address] Oct, [place] [address] [address] 02 Oct, 2018 Crohn's disease of both smal l and large intestine with complication K50.819 [facility] N [place] [id number] [address] [place] [address] Jul, Sinusitis chronic, frontal J 32.1 ; Acute mucoid otitis media of both ears H65.113 ; Seasonal allergies J30.2 and BMI 50.0-59.9, adult Z68.43 [place] [id number] [address] [place] [address] Jul, Essential hypertension I10 ; Type 2 diabetes mellitus with other specified complication E11.69 ; BMI 50.0-59.9, adult Z68.43 ; Mixed stress and urge urinary incontinence N39.46 and Mid back pain on right side M54.[address] [address] Jun, Iron deficiency anemia due t o chronic blood loss D50.0 ; Hyperlipidemia E78.5 ; Type 2 diabetes mellitus with other specified complication E11.69 ; Vitamin B12 deficiency E53.8 and Vitamin D deficiency E55.9 [facility] [address] [place] [address] 14 Jun, 2018 Cough R05 and BMI 50.0-59.9, adult Z68.43 [place] [address] [address] Jun, [place] [address] [address] May, Iron deficiency anemia due t o chronic blood loss D50.0 ; Chronic diarrhea K52.9 ; Essential hypertension I10 ; Type 2 diabetes mellitus with other specified complication E11.69 ; Vitamin D deficiency E55.9 ; Colon stricture K56.699 ; Vitamin B12 deficiency E53.8 ; Hyperlipidemia E78.5 and BMI 50.0-59.9, adult Z68.43 [place] [address] [address] May, [place] [address] [address] Apr, Nonhealing wound of heel S91 .309A and Body mass index (BMI) of 50- 59.9 in adult Z68.43 [place] [address] [address] Mar, [place] [address] [address] Mar, BMI 50.0-59.9, adult Z68.43 ; Flank pain R10.9 and Weight loss counseling, encounter for Z71.3 [place] [address] [address] [place] [id number] [address] [place] [address] February, [place] [address] [address] Jan, [place] [address] [address] [place] [id number] [address] [place] [address] Jan, [facility] [address] [place] [id number] [address] [place] [address] Jan, Diarrhea due to staphylococc us A04.8 and Diarrhea, unspecified type R19.7 [place] [address] [address] Jan, Acquired hypothyroidism E03. 9 ; Type 2 diabetes mellitus with other specified complication E11.69 ; Hyperlipidemia E78.5 ; Essential hypertension I10 ; Major depressive disorder, recurrent episode, moderate F33.1 and Vitamin D deficiency E55.9 [place] [address] [address] Jan, Type 2 diabetes mellitus wit h other specified complication E11.69 ; Hyperlipidemia E78.5 ; Essential hypertension I10 ; Acquired hypothyroidism E03.9 ; Major depressive disorder, recurrent episode, moderate F33.1 ; Vitamin D deficiency E55.9 ; Sinus congestion R09.81 and BMI 50.0-59.9, adult Z68.43 [place] [address] [address] Dec, [place] [address] [address] Sep, Encounter for immunization Z 23 [place] [address] [address] Sep, [place] [address] [address] Sep, Vitamin B12 deficiency E53.8 [place] [address] [address] Aug, [place] [address] [address] Aug, BMI 60.0-69.9, adult Z68.44 and Acute non-recurrent maxillary sinusitis J01.00 [place] [address] [address] Aug, [place] [address] [address] Aug, Medicare annual wellness vis it, initial Z00.00 ; Screening for breast cancer Z12.31 ; BMI 40.0-44.9, adult Z68.41 and Acquired hypothyroidism E03.9 [place] [address] [address] [facility] [id number] [address] [place] [address] Jul, Actinic keratosis L57.0 [place] [address] [address] [place] [id number] [address] [place] [address] Jul, Actinic keratosis L57.0 [place] [address] [address] [facility] [id number] [address] [place] [address] Jul, Type 2 diabetes mellitus wit h other specified complication E11.69 ; Actinic keratosis L57.0 and Hypothyroidism, unspecified E03.9 [place] [address] [place] [address] Jul, [place] [address] [address] Jul, [place] [address] [place] [id number] [address] [place] [address] Jul, Vitamin B12 deficiency E53.8 [place] [address] [place] [address] Jun, Acquired hypothyroidism E03. 9 and Chronic tension-type headache, intractable G44.221 [place] [address] [place] [address] Jun, Back muscle spasm M62.830 an d BMI 50.0-59.9, adult Z68.43 [place] [address] [address] [place] [id number] [address] [place] [address] Jun, Vitamin B12 deficiency E53.8 [place] [address] [address] [place] [id number] [address] [place] [address] 05 Jun, 2017 Crohn's disease of both smal l and large intestine with complication K50.819 [place] [address] [address] Jun, Crohn's disease of both smal l and large intestine with complication K50.819 [place] [address] [address] May, Hyperlipidemia E78.5 ; Anxie ty F41.9 and Essential hypertension I10 [place] [address] [address] May, [place] [address] [address] May, Encounter for immunization Z 23 and Vitamin B12 deficiency E53.8 [place] [address] [address] May, [place] [address] [address] Apr, [place] [address] [address] Apr, [place] [address] [address] Apr, Crohn's disease of both smal l and large intestine with complication K50.819 [place] [address] [address] Apr, Vitamin B12 deficiency E53.8 [place] [address] [address] Apr, Crohn's disease of both smal l and large intestine with complication K50.819 and Acute pain of right shoulder M25.511 [place] [address] [address] Mar, Type 2 diabetes mellitus wit hout complication E11.9 ; Frequent falls R29.6 and Other chest pain R07.89 [place] [address] [address] Mar, [place] [address] [id number] [address] [place] [address] Mar, [facility] [address] [facility] [id number] [address] [place] [address] Mar, Type 2 diabetes mellitus wit hout complication E11.9 and Blurry vision, bilateral H53.8 [place] [address] [id number] [address] [place] [address] Mar, Vitamin B12 deficiency E53.8 [facility] [address] [id number] [address] [place] [address] Mar, Crohn's disease of both smal l and large intestine with complication K50.819 [place] [address] [address] [facility] [id number] [address] [place] [address] February, Vitamin B12 deficiency E53.8 [place] [address] [address] [facility] [id number] [address] [place] [address] Jan, Crohn's disease of both smal l and large intestine with complication K50.819 [place] [address] [id number] [address] [place] [address] Jan, Crohn's disease of both smal l and large intestine with complication K50.819 [facility] WALK IN [facility] [address] [facility] [id number] [address] [place] [address] Jan, Dark brown-colored urine R82 .99 and Acute suppurative otitis media of right ear without spontaneous rupture of tympanic membrane, recurrence not specified H66.001 [place] [address] [address] [facility] [id number] [address] [place] [address] Jan, Encounter for immunization Z 23 [place] [address] [address] [facility] [id number] [address] [place] [address] Dec, Crohn's disease of both smal l and large intestine with complication K50.819 and Eustachian tube dysfunction, right H69.81 [facility] [address] [place] [address] [address] Dec, [place] [address] [address] Dec, Contusion of right knee, ini tial encounter S80.01XA [place] [address] [address] Dec, [place] [address] [address] Dec, Acute pain of right knee M25 .[address] [address] Dec, Iron deficiency anemia due t o chronic blood loss D50.[address] [address] Dec, Hyperlipidemia E78.5 ; Type 2 diabetes mellitus without complication E11.9 ; Vitamin B12 deficiency E53.8 ; Essential hypertension I10 ; Obstructive sleep apnea on CPAP G47.33 and Periodic limb movement sleep disorder G47.[address] [address] Nov, Type 2 diabetes mellitus wit hout complication E11.9 ; Vitamin B12 deficiency E53.8 ; Hyperlipidemia E78.5 ; Essential hypertension I10 ; Obstructive sleep apnea on CPAP G47.33 ; Periodic limb movement sleep disorder G47.61 ; Anxiety F41.9 ; Acquired hypothyroidism E03.9 and Chronic tension-type headache, intractable G44.221 [place] [address] [address] Nov, Crohn's disease of both smal l and large intestine with complication K50.[address] [address] Nov, Vitamin B12 deficiency E53.[address] [address] Oct, [place] [address] [id number] [address] [place] [address] Oct, Vitamin B12 deficiency E53.8 [facility] [address] [id number] [address] [place] [address] Sep, [facility] [address] [id number] [address] [place] [address] Sep, Vitamin B12 deficiency E53.8 [facility] [address] [id number] [address] [place] [address] Aug, [facility] [address] [id number] [address] [place] [address] Aug, Vitamin B12 deficiency E53.8 [facility] [address] [id number] [address] [place] [address] Aug, [facility] [address] [id number] [address] [place] [address] Jul, Elevated ALT measurement R74 .0 [facility] [address] [id number] [address] [place] [address] Jul, Hematuria R31.9 ; Acute righ t-sided thoracic back pain M54.6 ; Major depressive disorder, recurrent episode, moderate F33.1 and Elevated ALT measurement R74.0 [facility] [address] [id number] [address] [place] [address] Jul, [facility] [address] [id number] [address] [place] [address] Jul, Elevated ALT measurement R74 .0 [facility] [address] [id number] [address] [place] [address] 14 Jul, 2016 Iron deficiency anemia due t o chronic blood loss D50.0 [facility] [address] [id number] [address] [place] [address] 14 Jul, 2016 Type 2 diabetes mellitus wit hout complication E11.9 ; Acquired hypothyroidism E03.9 ; Iron deficiency anemia due to chronic blood loss D50.0 ; Hyperlipidemia E78.5 and Essential hypertension I10 [facility] [address] [id number] [address] [place] [address] 26 Jun, 2016 [facility] [address] [facility] [id number] [address] [place] [address] 20 Jun, 2016 Vitamin B12 deficiency E53.8 [facility] [address] [facility] [id number] [address] [place] [address] 16 Jun, 2016 Type 2 diabetes mellitus wit hout complication E11.9 ; Acquired hypothyroidism E03.9 ; Iron deficiency anemia due to chronic blood loss D50.0 ; Hyperlipidemia E78.5 ; Essential hypertension I10 ; Chronic tension-type headache, intractable G44.221 ; Pulsatile tinnitus, bilateral H93.13 ; Obstructive sleep apnea on CPAP G47.33 and Major depressive disorder, recurrent episode, moderate F33.1 [place] [address] [address] [facility] [id number] [address] [place] [address] May, Vitamin B12 deficiency E53.8 [place] [address] [address] [facility] [id number] [address] [place] [address] May, [place] [address] [address] [facility] [id number] [address] [place] [address] Apr, Vitamin B12 deficiency E53.8 [place] [address] [facility] [id number] [address] [place] [address] Apr, [place] [address] [address] [facility] [id number] [address] [place] [address] Mar, Chronic tension-type headach e, intractable G44.221 and Major depressive disorder, recurrent episode, moderate F33.1 [place] [address] [facility] [id number] [address] [place] [address] 14 Mar, 2016 Vitamin B12 deficiency E53.8 [facility] [address] [facility] [id number] [address] [place] [address] February, [facility] [address] [facility] [id number] [address] [place] [address] February, Vitamin B12 deficiency E53.8 [facility] [address] [id number] [address] [place] [address] February, [facility] [address] [id number] [address] [place] [address] 27 Jan, 2016 Dysuria R30.0 [facility] [address] [facility] [id number] [address] [place] [address] Jan, Type 2 diabetes mellitus wit hout complication E11.9 and Essential hypertension I10 [facility] [address] [id number] [address] [place] [address] 15 Jan, 2016 Chronic diarrhea K52.9 [facility] [address] [id number] [address] [place] [address] 13 Jan, 2016 [facility] [address] [facility] [id number] [address] [place] [address] Jan, Chronic diarrhea K52.9 [facility] [address] [id number] [address] [place] [address] Jan, [facility] [address] [id number] [address] [place] [address] 12 Jan, 2016 Dysuria R30.0 [facility] [address] [facility] [id number] [address] [place] [address] 07 Jan, 2016 Vitamin B12 deficiency E53.8 [facility] [address] [facility] [id number] [address] [place] [address] 07 Jan, 2016 Dysuria R30.0 and Iron defic iency anemia due to chronic blood loss D50.0 [facility] [address] [id number] [address] [place] [address] 05 Jan, 2016 Dysuria R30.0 [facility] [address] [facility] [id number] [address] [place] [address] 04 Jan, 2016 [facility] [address] [facility] [id number] [address] [place] [address] 15 Dec, 2015 [facility] [address] [facility] [id number] [address] [place] [address] 11 Dec, 2015 Iron deficiency anemia due t o chronic blood loss D50.0 [facility] [address] [facility] [id number] [address] [place] [address] 10 Dec, 2015 Dysuria R30.0 ; Fatigue R53. 83 ; Hyperlipidemia E78.5 and Diarrhea R19.7 [facility] [address] [facility] [id number] [address] [place] [address] Dec, [facility] [address] [facility] [id number] [address] [place] [address] Dec, [place] [address] [facility] [id number] [address] [place] [address] Nov, Vitamin B12 deficiency E53.8 [facility] [address] [facility] [id number] [address] [place] [address] Oct, Vitamin B12 deficiency E53.8 [facility] [address] [facility] [id number] [address] [place] [address] Oct, [facility] [address] [facility] [id number] [address] [place] [address] Oct, Headache R51 [facility] [address] [facility] [id number] [address] [place] [address] 07 Oct, 2015 Essential hypertension I10 ; Type 2 diabetes mellitus without complication E11.9 ; Vitamin B12 deficiency E53.8 ; Acquired hypothyroidism E03.9 ; Iron deficiency anemia due to chronic blood loss D50.0 and Hyperlipidemia E78.5 [facility] [address] [facility] [id number] [address] [place] [address] Sep, Essential hypertension I10 ; Vitamin B12 deficiency E53.8 ; Iron deficiency anemia due to chronic blood loss D50.0 ; Type 2 diabetes mellitus without complication E11.9 ; Hyperlipidemia E78.5 and Acquired hypothyroidism E03.9 [facility] [address] [facility] [id number] [address] [place] [address] Sep, [facility] [address] [facility] [id number] [address] [place] [address] Sep, [facility] [address] [place] [id number] [address] [place] [address] Jul, [facility] [address] [facility] [id number] [address] [place] [address] Jun, [facility] [address] [facility] [id number] [place] [address] Jun, [facility] [address] [facility] [id number] [address] [place] [address] Jun, Hyperlipidemia 272.4 ; Iron deficiency anemia 280.9 ; Hypothyroidism 244.9 ; Diabetes mellitus without mention of complication, type II or unspecified type, not stated as uncontrolled 250.00 and Hypertension 401.9 [facility] [id number] [place] [address] Jun, [facility] [address] [place] [id number] [address] [place] [address] Jun, [facility] [address] [place] [id number] [address] [place] [address] May, Hyperlipidemia 272.4 [facility] [address] [place] [id number] [place] [address] May, [facility] [address] [place] [id number] [address] [place] [id number] May, [facility] [address] [facility] [id number] [address] [place] [id number] Apr, Diabetes mellitus without me ntion of complication, type II or unspecified type, not stated as uncontrolled 250.00 ; Hypothyroidism 244.9 ; Hyperlipidemia 272.4 ; Pain in joint, lower leg 719.46 and RUQ pain 789.01 [facility] [address] [id number] [address] [place] [id number] Mar, Sinusitis 473.9 [facility] [address] [id number] [address] [place] [id number] Mar, [facility] [address] [id number] [address] [place] [id number] Mar, [facility] [address] [address] [id number] [address] [place] [address] Mar, Hematochezia 578.1 [facility] [address] [id number] [address] [place] [address] February, Sinusitis 473.9 [facility] [address] [id number] [address] [place] [address], [place] [address] February, [facility] [address] [id number] [address] [place] [id number] 14 Jan, 2015 [facility] [address] [id number] [address] [place] [address] Jan, [facility] [address] [id number] [address] [place] [address] Dec, [facility] [address] [id number] [address] [place] [address] Dec, [facility] [address] [id number] [address] [place] [address] Dec, [facility] [address] [id number] [address] [place] [address] Dec, [facility] [address] [id number] [address] [place] [address] 24 Dec, 2014 [facility] [address] [id number] [address] [place] [address] 24 Dec, 2014 [facility] [address] [id number] [address] [place] [id number] 23 Dec, 2014 [facility] [address] [id number] [address] [place] [address] 13 Dec, 2014 [facility] [address] [id number] [address] [place] [address] Dec, [facility] [address] [id number] [address] [place] [address], [place] [address] Dec, [facility] [address] [id number] [address] [place] [address], [place] [address] Dec, [facility] [address] [id number] [address] [place] [address], [place] [address] Nov, [facility] [address] [id number] [address] [place] [address], [place] [address] Nov, [facility] [address] [id number] [address] [place] [address], [place] [address] Nov, [facility] [address] [id number] [address] [place] [address], [place] [address] Nov, [facility] [address] [id number] [address] [place] [address], [place] [address] Oct, [facility] [address] [id number] [address] [place] [address], [place] [address] Oct, [facility] [address] [id number] [address] [place] [address], [place] [address] Oct, [facility] [address] [id number] [address] [place] [address], [place] [address] Oct, [facility] [address] [id number] [address] [place] [address], [place] [address] Oct, [facility] [address] [id number] [address] [place] [address], [place] [address] Oct, [facility] [address] [id number] [address] [place] [address], [place] [address] Sep, [facility] [address] [id number] [address] [place] [address], [place] [address] Sep, [facility] [address] [id number] [address] [place] [address], [place] [address] Sep, [facility] [address] [id number] [address] [place] [address], [place] [address] Sep, [facility] [address] [id number] [address] [place] [address], [place] [address] Sep, [facility] [address] [id number] [address] [place] [address], [place] [address] Sep, [facility] [address] [id number] [address] [place] [address], [place] [address] Sep, [facility] [address] [id number] [address] [place] [address], [place] [address] Aug, [facility] [address] [id number] [address] [place] [address], [place] [address] Aug, [facility] [address] [id number] [address] [place] [address], [place] [address] Aug, [facility] [address] [id number] [address] [place] [address], [place] [address] Aug, [facility] [address] [id number] [address] [place] [address], [place] [address] Aug, [facility] [address] [id number] [address] [place] [address], [place] [address] Aug, [facility] [address] [id number] [address] [place] [address], [place] [address] Aug, [facility] [address] [id number] [address] [place] [address], [place] [address] Aug, [facility] [address] [id number] [address] [place] [address], [place] [address] Aug, [facility] [address] [id number] [address] [place] [address], [place] [address] 17 Aug, 2014 [facility] [address] [id number] [address] [place] [address], [place] [address] 13 Aug, 2014 [facility] [address] [id number] [address] [place] [address], [place] [address] Aug, [facility] [address] [id number] [address] [place] [address], [place] [address] Aug, [facility] [address] [id number] [address] [place] [address], [place] [address] Aug, [facility] [address] [id number] [address] [place] [address], [place] [address] Jul, [facility] [address] [id number] [address] [place] [address], [place] [address] Jul, [facility] [address] [id number] [address] [place] [address], [place] [address] Jul, [facility] [address] [id number] [address] [place] [address], [place] [address] Jul, [facility] [address] [id number] [address] [place] [address], [place] [address] 24 Jun, 2014 [facility] [address] [id number] [address] [place] [address], [place] [address] 24 Jun, 2013 [facility] [address] [id number] [address] [place] [address], [place] [address] 23 Jun, 2013 [facility] [address] [id number] [address] [place] [address], [place] [address] 23 Jun, 2013 [facility] [address] [id number] [address] [place] [address], [place] [address] 19 Jun, 2013 [facility] [address] [id number] [address] [place] [address] 19 Jun, 2013 [facility] [address] [id number] [address] [place] [address], [place] [address] 11 Jun, 2013 [facility] [address] [id number] [address] [place] [address], [place] [address] 11 Jun, 2013 [facility] [address] [id number] [address] [place] [address], [place] [address] 11 Jun, 2013 [facility] [address] [id number] [facility] [place] [address] 11 Jun, 2014 [facility] [address] [id number] [facility] [place] [address] Jun, [facility] [address] [id number] [facility] [place] [address] Jun, [facility] [address] [id number] [address] [place] [address], [place] [address] Jun, [facility] [address] [id number] [address] [place] [address], [place] [address] Jun, [facility] [address] [id number] [address] [place] [address], [place] [address] May, [facility] [address] [id number] [address] [place] [address], [place] [address] May, [facility] [address] [id number] [address] [place] [address], [place] [address] May, [facility] [address] [id number] [address] [place] [address], [place] [address] May, [facility] [address] [id number] [address] [place] [address], [place] [address] May, [facility] [address] [id number] [address] [place] [address], [place] [address] May, [facility] [address] [id number] [address] [place] [address], [place] [address] Apr, [facility] [address] [id number] [address] [place] [address], [place] [address] Apr, [facility] [address] [id number] [address] [place] [address], [place] [address] Apr, [facility] [address] [id number] [address] [place] [address], [place] [address] Apr, [facility] [address] [id number] [address] [place] [address], [place] [address] Apr, [facility] [address] [id number] [address] [place] [address], [place] [address] Apr, [facility] [address] [id number] [address] [place] [address], [place] [address] Apr, [facility] [address] [id number] [address] [place] [address], [place] [address] Apr, [facility] [address] [id number] [address] [place] [address], [place] [address] Apr, [facility] [address] [id number] [address] [place] [address], [place] [address] Apr, [facility] [address] [id number] [address] [place] [address], [place] [address] Apr, [facility] [address] [id number] [address] [place] [address], [place] [address] Mar, [facility] [address] [id number] [address] [place] [address], [place] [address] Mar, [facility] [address] [id number] [address] [place] [address], [place] [address] Mar, [facility] [address] [id number] [address] [place] [address], [place] [address] Mar, [facility] [address] [id number] [address] [place] [address], [place] [address] February, [facility] [address] [id number] [address] [place] [address], [place] [address] February, [facility] [address] [id number] [address] [place] [address], [place] [address] Jan, [facility] [address] [id number] [address] [place] [address], [place] [address] Jan, [facility] [address] [place] [id number] Jan, [facility] [address] [id number] [address] [place] [address], [place] [address] Jan, [facility] [address] [id number] [facility] [place] [address] Jan, [facility] [address] [id number] [facility] [place] [address] Jan, [facility] [address] [id number] [address] [place] [address], [place] [address] Jan, [facility] [address] [id number] [address] [place] [address], [place] [address] Jan, [facility] [address] [id number] [address] [place] [address], [place] [address] Jan, [facility] [address] [id number] [address] [place] [address], [place] [address] Jan, [facility] [address] [id number] [address] [place] [address], [place] [address] Jan, [facility] [address] [id number] [address] [place] [address], [place] [address] Jan, [facility] [address] [id number] [address] [place] [address], [place] [address] Jan, [facility] [address] [id number] [address] [place] [address], [place] [address] Jan, [facility] [address] [id number] [address] [place] [address], [place] [address] Jan, [facility] [address] [id number] [address] [place] [address], [place] [address] Jan, [facility] [address] [id number] [address] [place] [address], [place] [address] Jan, [facility] [address] [id number] [address] [place] [address], [place] [address] Dec, [facility] [address] [id number] [address] [place] [address], [place] [address] Dec, [facility] [address] [id number] [address] [place] [address], [place] [address] Dec, [facility] [address] [id number] [address] [place] [address], [place] [address] Dec, [facility] [address] [id number] [address] [place] [address], [place] [address] Dec, [facility] [address] [id number] [address] [place] [address], [place] [address] Dec, [facility] [address] [id number] [address] [place] [address], [place] [address] Dec, [facility] [address] [id number] [address] [place] [address], [place] [address] Nov, [facility] [address] [id number] [address] [place] [address], [place] [address] Nov, [facility] [address] [id number] [address] [place] [address], [place] [address] Nov, [facility] [address] [id number] [address] [place] [address], [place] [address] Nov, [facility] [address] [id number] [address] [place] [address], [place] [address] Nov, [facility] [address] [id number] [address] [place] [address], [place] [address] Nov, [facility] [address] [id number] [address] [place] [address], [place] [address] Nov, [facility] [address] [id number] [address] [place] [address], [place] [address] Oct, [facility] [address] [id number] [address] [place] [address], [place] [address] Oct, [facility] [address] [id number] [address] [place] [address], [place] [address] Sep, [facility] [address] [id number] [address] [place] [address], [place] [address] Sep, [facility] [address] [id number] [address] [place] [address], [place] [address] Sep, [facility] [address] [id number] [address] [place] [address], [place] [address] Sep, [facility] [address] [id number] [address] [place] [address], [place] [address] Sep, [facility] [address] [id number] [address] [place] [address], [place] [address] Sep, [facility] [address] [id number] [address] [place] [address], [place] [address] Sep, [facility] [address] [id number] [address] [place] [address], [place] [address] Sep, [facility] [address] [id number] [address] [place] [address], [place] [address] Sep, [facility] [address] [id number] [address] [place] [address], [place] [address] Sep, [facility] [address] [id number] [address] [place] [address], [place] [address] Aug, [facility] [address] [id number] [address] [place] [address] Aug, [facility] [address] [id number] [address] [place] [address] Aug, [facility] [address] [id number] [address] [place] [address] Aug, [facility] [address] [id number] [address] [place] [address], [place] [address] Aug, [facility] [address] [id number] [address] [place] [address] Jul, [facility] [address] [id number] [address] [place] [address], [place] [address] Jul, [facility] [address] [id number] [address] [place] [address] Jul, [facility] [address] [facility] [id number] [address] [place] [address] Jul, IMMUNIZATIONS No Known Immunizations SOCIAL HISTORY [...]
--- OUTSIDE RECORDS SUMMARY | 2020-03-16 11:57 | XMS REPORT ---
Author Author Swathi Benavides Organization [facility] [place] Address [address] [place] [address] Care Team Providers Care Simplex Printer Installer Name Role Phone WIL Benavides Unavailable PROBLEMS Type Condition ICD9-CM Code TOV87-PK Code Onset Dates Condition S tatus SNOMED Code Problem Sensorineural hearing loss of right ear H90.41 Active 84331425 Problem Obstructive sleep apnea on CPAP G47.33 Active 91606165 Problem Periodic limb movement sleep disorder G47.61 Active 372061263 Problem Iron deficiency anemia due to chronic blood loss D 50.0 Active 22930100 Problem MACHUCA (nonalcoholic steatohepatitis) K75.81 Active 926155547 Problem Vitamin B12 deficiency E53.8 Active 119780684 Problem Chronic diarrhea K52.9 Active 236 718691 Problem Vitamin D deficiency E55.9 Active 88376503 Problem BMI 50.0-59.9, adult Z68.43 Active 396927080 Problem Fatty liver K76.0 Active 45736588 7 Problem Anxiety F41.9 Active 65006149 Problem Major depressive disorder, recurrent episode, moderate F33.1 Active 257284833 Problem Chronic tension-type headache, intractable G44.221 Active 858552295 Problem Right upper quadrant pain R10.11 Acti ve 07828066 Problem Frequent falls R29.6 Active 78470 2002 Problem Crohn's disease of both small and large intestin e with complication K50.819 Active 86483245 Problem Type 2 diabetes mellitus with other specified complication E11.69 Active 514309000350 Problem Hyperlipidemia, unspecified E78.5 Ac tive 90049514 Problem Mixed stress and urge urinary incontinence N39.46 Active 446088653 Problem Sinusitis chronic, frontal J32.1 Act katlyn 11626282 Problem Seasonal allergies J30.2 Active 4 41843132 Problem Other chronic pain G89.29 Active 8 6317382 Problem Hyperlipidemia E78.5 Active 82548 004 Problem Bilateral primary osteoarthritis of knee M17.0 Active 225952978 Problem Essential hypertension I10 Active 43560585 Problem Acquired hypothyroidism E03.9 Active 916638774 Problem History of hysterectomy for benign disease Z90.710 Active 583727021 Problem Morbid (severe) obesity due to excess calories E66 .01 Active 265932593 Problem Other cirrhosis of liver K74.69 Activ e 02138858 Problem Portal hypertension K76.6 Active 06543341 ALLERGIES No Information ENCOUNTERS Encounter Location Date Diagnosis [place] [address] [facility] [id number] [address] [place] [address] February, [facility] [address] [facility] [place] [address] February, Acute recurrent pansinusitis J01.41 [facility] [address] [facility] [place] [address] February, Acute maxillary sinusitis, recurrence no t specified J01.00 [place] [address] [place] [id number] [place] [address] Jan, Bilateral primary osteoarthr itis of knee M17.0 ; Morbid obesity E66.01 ; Viral syndrome B34.9 and Atrial dilatation, left I51.7 [place] [address] [place] [id number] [address] [place] [address] Jan, [place] [address] [place] [id number] [address] [place] [address] Dec, Trigeminy R00.8 [place] [address] [place] [id number] [address] [place] [address] Dec, Essential hypertension I10 ; Morbid obesity E66.01 ; Low back pain M54.5 ; Other chronic pain G89.29 and Pain in right knee M25.561 [place] [address] [place] [id number] [address] [place] [address] Nov, [place] [id number] [place] [id number] [address] [place] [address] Oct, Palpitations R00.2 [place] [address] [place] [address] 30 Oct, 2018 Encounter for Medicare felipe [...] small and large intestine with complication K50.[address] [address] Oct, [place] [address] [address] 02 Oct, 2018 Crohn's disease of both smal l and large intestine with complication K50.819 [facility] [place] [id number] [place] [address] Jul, Sinusitis chronic, frontal J 32.1 ; Acute mucoid otitis media of both ears H65.113 ; Seasonal allergies J30.2 and BMI 50.0-59.9, adult Z68.43 [place] [id number] [place] [address] Jul, Essential hypertension I10 ; Type 2 diabetes mellitus with other specified complication E11.69 ; BMI 50.0-59.9, adult Z68.43 ; Mixed stress and urge urinary incontinence N39.46 and Mid back pain on right side M54.[address] [address] Jun, Iron deficiency anemia due t o chronic blood loss D50.0 ; Hyperlipidemia E78.5 ; Type 2 diabetes mellitus with other specified complication E11.69 ; Vitamin B12 deficiency E53.8 and Vitamin D deficiency E55.9 [facility] [address] [place] [address] 14 Jun, 2018 Cough R05 and BMI 50.0-59.9, adult Z68.43 [place] [address] [address] Jun, [place] [address] [address] May, Iron deficiency anemia due t o chronic blood loss D50.0 ; Chronic diarrhea K52.9 ; Essential hypertension I10 ; Type 2 diabetes mellitus with other specified complication E11.69 ; Vitamin D deficiency E55.9 ; Colon stricture K56.699 ; Vitamin B12 deficiency E53.8 ; Hyperlipidemia E78.5 and BMI 50.0-59.9, adult Z68.43 [place] [address] [address] May, [place] [address] [address] Apr, Nonhealing wound of heel S91 .309A and Body mass index (BMI) of 50- 59.9 in adult Z68.43 [place] [address] [address] Mar, [place] [address] [address] Mar, BMI 50.0-59.9, adult Z68.43 ; Flank pain R10.9 and Weight loss counseling, encounter for Z71.3 [place] [address] [place] [id number] [place] [address] February, [place] [address] [address] Jan, [place] [address] [place] [id number] [place] [address] Jan, [facility] [address] [place] [id number] [place] [address] Jan, Diarrhea due to staphylococc us A04.8 and Diarrhea, unspecified type R19.7 [place] [address] [address] Jan, Acquired hypothyroidism E03. 9 ; Type 2 diabetes mellitus with other specified complication E11.69 ; Hyperlipidemia E78.5 ; Essential hypertension I10 ; Major depressive disorder, recurrent episode, moderate F33.1 and Vitamin D deficiency E55.9 [place] [address] [address] Jan, Type 2 diabetes mellitus wit h other specified complication E11.69 ; Hyperlipidemia E78.5 ; Essential hypertension I10 ; Acquired hypothyroidism E03.9 ; Major depressive disorder, recurrent episode, moderate F33.1 ; Vitamin D deficiency E55.9 ; Sinus congestion R09.81 and BMI 50.0-59.9, adult Z68.43 [place] [address] [address] Dec, [place] [address] [address] Sep, Encounter for immunization Z 23 [place] [address] [address] Sep, [place] [address] [address] Sep, Vitamin B12 deficiency E53.8 [place] [address] [address] Aug, [place] [address] [address] Aug, BMI 60.0-69.9, adult Z68.44 and Acute non-recurrent maxillary sinusitis J01.00 [place] [address] [address] Aug, [place] [address] [address] Aug, Medicare annual wellness vis it, initial Z00.00 ; Screening for breast cancer Z12.31 ; BMI 40.0-44.9, adult Z68.41 and Acquired hypothyroidism E03.9 [place] [address] [facility] [id number] [address] [place] [address] Jul, Actinic keratosis L57.0 [place] [address] [place] [id number] [address] [place] [address] Jul, Actinic keratosis L57.0 [place] [address] [facility] [id number] [address] [place] [address] Jul, Type 2 diabetes mellitus wit h other specified complication E11.69 ; Actinic keratosis L57.0 and Hypothyroidism, unspecified E03.9 [place] [address] [place] [address] Jul, [place] [address] [address] Jul, [place] [address] [place] [id number] [place] [address] Jul, Vitamin B12 deficiency E53.8 [place] [address] [place] [address] Jun, Acquired hypothyroidism E03. 9 and Chronic tension-type headache, intractable G44.221 [place] [address] [place] [address] Jun, Back muscle spasm M62.830 an d BMI 50.0-59.9, adult Z68.43 [place] [address] [place] [id number] [address] [place] [address] Jun, Vitamin B12 deficiency E53.8 [place] [address] [place] [id number] [address] [place] [address] 05 Jun, 2017 Crohn's disease of both smal l and large intestine with complication K50.819 [place] [address] [address] Jun, Crohn's disease of both smal l and large intestine with complication K50.819 [place] [address] [address] May, Hyperlipidemia E78.5 ; Anxie ty F41.9 and Essential hypertension I10 [place] [address] [address] May, [place] [address] [address] May, Encounter for immunization Z 23 and Vitamin B12 deficiency E53.8 [place] [address] [address] May, [place] [address] [address] Apr, [place] [address] [address] Apr, [place] [address] [address] Apr, Crohn's disease of both smal l and large intestine with complication K50.819 [place] [address] [address] Apr, Vitamin B12 deficiency E53.8 [place] [address] [address] Apr, Crohn's disease of both smal l and large intestine with complication K50.819 and Acute pain of right shoulder M25.511 [place] [address] [address] Mar, Type 2 diabetes mellitus wit hout complication E11.9 ; Frequent falls R29.6 and Other chest pain R07.89 [place] [address] [address] Mar, [place] [address] [id number] [address] [place] [address] Mar, [facility] [place] [address] [facility] [id number] [address] [place] [address] Mar, Type 2 diabetes mellitus wit hout complication E11.9 and Blurry vision, bilateral H53.8 [place] [address] [id number] [address] [place] [address] Mar, Vitamin B12 deficiency E53.8 [facility] [place] [address] [id number] [address] [place] [address] Mar, Crohn's disease of both smal l and large intestine with complication K50.819 [place] [address] [facility] [id number] [address] [place] [address] February, Vitamin B12 deficiency E53.8 [place] [address] [facility] [id number] [address] [place] [address] Jan, Crohn's disease of both smal l and large intestine with complication K50.819 [place] [address] [id number] [address] [place] [address] Jan, Crohn's disease of both smal l and large intestine with complication K50.819 [facility] [address] [facility] [id number] [address] [place] [address] Jan, Dark brown-colored urine R82 .99 and Acute suppurative otitis media of right ear without spontaneous rupture of tympanic membrane, recurrence not specified H66.001 [place] [address] [facility] [id number] [address] [place] [address] Jan, Encounter for immunization Z 23 [place] [address] [facility] [id number] [address] [place] [address] Dec, Crohn's disease of both smal l and large intestine with complication K50.819 and Eustachian tube dysfunction, right H69.81 [facility] [place] [address] [address] [address] Dec, [place] [address] [address] Dec, Contusion of right knee, ini tial encounter S80.01XA [place] [address] [address] Dec, [place] [address] [address] Dec, Acute pain of right knee M25 .[address] [address] Dec, Iron deficiency anemia due t o chronic blood loss D50.[address] [address] Dec, Hyperlipidemia E78.5 ; Type 2 diabetes mellitus without complication E11.9 ; Vitamin B12 deficiency E53.8 ; Essential hypertension I10 ; Obstructive sleep apnea on CPAP G47.33 and Periodic limb movement sleep disorder G47.[address] [address] Nov, Type 2 diabetes mellitus wit hout complication E11.9 ; Vitamin B12 deficiency E53.8 ; Hyperlipidemia E78.5 ; Essential hypertension I10 ; Obstructive sleep apnea on CPAP G47.33 ; Periodic limb movement sleep disorder G47.61 ; Anxiety F41.9 ; Acquired hypothyroidism E03.9 and Chronic tension-type headache, intractable G44.221 [place] [address] [address] Nov, Crohn's disease of both smal l and large intestine with complication K50.[address] [address] Nov, Vitamin B12 deficiency E53.[address] [address] Oct, [place] [address] [id number] [address] [place] [address] Oct, Vitamin B12 deficiency E53.8 [facility] [place] [address] [id number] [address] [place] [address] Sep, [facility] [place] [address] [id number] [address] [place] [address] Sep, Vitamin B12 deficiency E53.8 [facility] [place] [address] [id number] [address] [place] [address] Aug, [facility] [place] [address] [id number] [address] [place] [address] Aug, Vitamin B12 deficiency E53.8 [facility] [place] [address] [id number] [address] [place] [address] Aug, [facility] [place] [address] [id number] [address] [place] [address] Jul, Elevated ALT measurement R74 .0 [facility] [place] [address] [id number] [address] [place] [address] Jul, Hematuria R31.9 ; Acute righ t-sided thoracic back pain M54.6 ; Major depressive disorder, recurrent episode, moderate F33.1 and Elevated ALT measurement R74.0 [facility] [place] [address] [id number] [address] [place] [address] Jul, [facility] [place] [address] [id number] [address] [place] [address] Jul, Elevated ALT measurement R74 .0 [facility] [place] [address] [id number] [address] [place] [address] 14 Jul, 2016 Iron deficiency anemia due t o chronic blood loss D50.0 [facility] [place] [address] [id number] [address] [place] [address] 14 Jul, 2016 Type 2 diabetes mellitus wit hout complication E11.9 ; Acquired hypothyroidism E03.9 ; Iron deficiency anemia due to chronic blood loss D50.0 ; Hyperlipidemia E78.5 and Essential hypertension I10 [facility] [place] [address] [id number] [address] [place] [address] 26 Jun, 2016 [facility] [place] [address] [facility] [id number] [address] [place] [address] 20 Jun, 2016 Vitamin B12 deficiency E53.8 [facility] [place] [address] [facility] [id number] [address] [place] [address] 16 Jun, 2016 Type 2 diabetes mellitus wit hout complication E11.9 ; Acquired hypothyroidism E03.9 ; Iron deficiency anemia due to chronic blood loss D50.0 ; Hyperlipidemia E78.5 ; Essential hypertension I10 ; Chronic tension-type headache, intractable G44.221 ; Pulsatile tinnitus, bilateral H93.13 ; Obstructive sleep apnea on CPAP G47.33 and Major depressive disorder, recurrent episode, moderate F33.1 [place] [address] [facility] [id number] [address] [place] [address] May, Vitamin B12 deficiency E53.8 [place] [address] [facility] [id number] [address] [place] [address] May, [place] [address] [facility] [id number] [address] [place] [address] Apr, Vitamin B12 deficiency E53.8 [place] [id number] [facility] [id number] [address] [place] [address] Apr, [place] [address] [facility] [id number] [address] [place] [address] Mar, Chronic tension-type headach e, intractable G44.221 and Major depressive disorder, recurrent episode, moderate F33.1 [place] [id number] [facility] [id number] [address] [place] [address] 14 Mar, 2016 Vitamin B12 deficiency E53.8 [facility] [place] [address] [facility] [id number] [address] [place] [address] February, [facility] [place] [address] [facility] [id number] [address] [place] [address] February, Vitamin B12 deficiency E53.8 [facility] [place] [address] [id number] [address] [place] [address] February, [facility] [place] [address] [id number] [address] [place] [address] 27 Jan, 2016 Dysuria R30.0 [facility] [place] [address] [facility] [id number] [address] [place] [address] Jan, Type 2 diabetes mellitus wit hout complication E11.9 and Essential hypertension I10 [facility] [place] [address] [id number] [address] [place] [address] 15 Jan, 2016 Chronic diarrhea K52.9 [facility] [place] [address] [id number] [address] [place] [address] 13 Jan, 2016 [facility] [place] [address] [facility] [id number] [address] [place] [address] Jan, Chronic diarrhea K52.9 [facility] [place] [address] [id number] [address] [place] [address] Jan, [facility] [place] [address] [id number] [address] [place] [address] 12 Jan, 2016 Dysuria R30.0 [facility] [place] [address] [facility] [id number] [address] [place] [address] 07 Jan, 2016 Vitamin B12 deficiency E53.8 [facility] [place] [address] [facility] [id number] [address] [place] [address] 07 Jan, 2016 Dysuria R30.0 and Iron defic iency anemia due to chronic blood loss D50.0 [facility] [place] [address] [id number] [address] [place] [id number] 05 Jan, 2016 Dysuria R30.0 [facility] [place] [address] [facility] [id number] [address] [place] [address] 04 Jan, 2016 [facility] [place] [address] [facility] [id number] [address] [place] [address] 15 Dec, 2015 [facility] [place] [address] [facility] [id number] [address] [place] [address] 11 Dec, 2015 Iron deficiency anemia due t o chronic blood loss D50.0 [facility] [place] [address] [facility] [id number] [address] [place] [address] 10 Dec, 2015 Dysuria R30.0 ; Fatigue R53. 83 ; Hyperlipidemia E78.5 and Diarrhea R19.7 [facility] [place] [address] [facility] [id number] [address] [place] [address] Dec, [facility] [place] [address] [facility] [id number] [address] [place] [address] Dec, [place] [address] [facility] [id number] [address] [place] [address] Nov, Vitamin B12 deficiency E53.8 [facility] [place] [address] [facility] [id number] [address] [place] [address] Oct, Vitamin B12 deficiency E53.8 [facility] [place] [address] [facility] [id number] [address] [place] [address] Oct, [facility] [address] [facility] [id number] [address] [place] [address] Oct, Headache R51 [facility] [place] [address] [facility] [id number] [address] [place] [address] 07 Oct, 2015 Essential hypertension I10 ; Type 2 diabetes mellitus without complication E11.9 ; Vitamin B12 deficiency E53.8 ; Acquired hypothyroidism E03.9 ; Iron deficiency anemia due to chronic blood loss D50.0 and Hyperlipidemia E78.5 [facility] [place] [address] [facility] [id number] [address] [place] [address] Sep, Essential hypertension I10 ; Vitamin B12 deficiency E53.8 ; Iron deficiency anemia due to chronic blood loss D50.0 ; Type 2 diabetes mellitus without complication E11.9 ; Hyperlipidemia E78.5 and Acquired hypothyroidism E03.9 [facility], [place], [facility] [address] [facility] [id number] [address] [place] [id number] Sep, [facility], [place], [facility] [address] [facility] [id number] [address] [place] [id number] Sep, [facility], [place], [facility] [address] [place] [id number] [address] [place] [id number] Jul, [facility], [place], [facility] [address] [facility] [id number] [address] [place] [id number] Jun, [facility], [place], [facility] [address] [facility] [id number] [place] [address] Jun, [facility] [place] [address] [facility] [id number] [address] [place] [address] Jun, Hyperlipidemia 272.4 ; Iron deficiency anemia 280.9 ; Hypothyroidism 244.9 ; Diabetes mellitus without mention of complication, type II or unspecified type, not stated as uncontrolled 250.00 and Hypertension 401.9 [facility] [place] [id number] [place] [address] Jun, [facility] [place] [address] [id number] [address] [place] [address] Jun, [facility] [place] [address] [id number] [address] [place] [address] May, Hyperlipidemia 272.4 [facility] [place] [address] [id number] [address] [place] [address] May, [facility] [place] [address] [id number] [address] [place] [address] May, [facility] [place] [address] [facility] [id number] [address] [place] [address] Apr, Diabetes mellitus without me ntion of complication, type II or unspecified type, not stated as uncontrolled 250.00 ; Hypothyroidism 244.9 ; Hyperlipidemia 272.4 ; Pain in joint, lower leg 719.46 and RUQ pain 789.01 [facility] [place] [address] [id number] [address] [place] [address] Mar, Sinusitis 473.9 [facility] [address] [id number] [address] [place] [address] Mar, [facility] [address] [id number] [address] [place] [address] Mar, [facility] [address] [id number] [address] [place] [address] Mar, Hematochezia 578.1 [facility] [address] [id number] [address] [place] [address] February, Sinusitis 473.9 [facility] [address] [id number] [address] [place] [address], [place] [address] February, [facility] [address] [id number] [address] [place] [address] 14 Jan, 2015 [facility] [address] [id number] [address] [place] [address] Jan, [facility] [address] [id number] [address] [place] [address] Dec, [facility] [address] [id number] [address] [place] [address] Dec, [facility] [address] [id number] [address] [place] [address] Dec, [facility] [address] [id number] [address] [place] [address] Dec, [facility] [address] [id number] [address] [place] [address] 24 Dec, 2014 [facility] [address] [id number] [address] [place] [address] 24 Dec, 2014 [facility] [address] [id number] [address] [place] [address] 23 Dec, 2014 [facility] [address] [id number] [address] [place] [address] 13 Dec, 2014 [facility] [address] [id number] [address] [place] [address] Dec, [facility] [address] [id number] [address] [place] [address], [place] [address] Dec, [facility] [address] [id number] [address] [place] [address], [place] [address] Dec, [facility] [address] [id number] [address] [place] [address], [place] [address] Nov, [facility] [address] [id number] [address] [place] [address], [place] [address] Nov, [facility] [address] [id number] [address] [place] [address], [place] [address] Nov, [facility] [address] [id number] [address] [place] [address], [place] [address] Nov, [facility] [address] [id number] [address] [place] [address], [place] [address] Oct, [facility] [address] [id number] [address] [place] [address], [place] [address] Oct, [facility] [address] [id number] [address] [place] [address], [place] [address] Oct, [facility] [address] [id number] [address] [place] [address], [place] [address] Oct, [facility] [address] [id number] [address] [place] [address], [place] [address] Oct, [facility] [address] [id number] [address] [place] [address], [place] [address] Oct, [facility] [address] [id number] [address] [place] [address], [place] [address] Sep, [facility] [address] [id number] [address] [place] [address], [place] [address] Sep, [facility] [address] [id number] [address] [place] [address], [place] [address] Sep, [facility] [address] [id number] [address] [place] [address], [place] [address] Sep, [facility] [address] [id number] [address] [place] [address], [place] [address] Sep, [facility] [address] [id number] [address] [place] [address], [place] [address] Sep, [facility] [address] [id number] [address] [place] [address], [place] [address] Sep, [facility] [address] [id number] [address] [place] [address], [place] [address] Aug, [facility] [address] [id number] [address] [place] [address], [place] [address] Aug, [facility] [address] [id number] [address] [place] [address], [place] [address] Aug, [facility] [address] [id number] [address] [place] [address], [place] [address] Aug, [facility] [address] [id number] [address] [place] [address], [place] [address] Aug, [facility] [address] [id number] [address] [place] [address], [place] [address] Aug, [facility] [address] [id number] [address] [place] [address], [place] [address] Aug, [facility] [address] [id number] [address] [place] [address], [place] [address] Aug, [facility] [address] [id number] [address] [place] [address], [place] [address] Aug, [facility] [address] [id number] [address] [place] [address], [place] [address] 17 Aug, 2014 [facility] [address] [id number] [address] [place] [address], [place] [address] 13 Aug, 2014 [facility] [address] [id number] [address] [place] [address], [place] [address] Aug, [facility] [address] [id number] [address] [place] [address], [place] [address] Aug, [facility] [address] [id number] [address] [place] [address], [place] [address] Aug, [facility] [address] [id number] [address] [place] [address], [place] [address] Jul, [facility] [address] [id number] [address] [place] [address], [place] [address] Jul, [facility] [address] [id number] [address] [place] [address], [place] [address] Jul, [facility] [address] [id number] [address] [place] [address], [place] [address] Jul, [facility] [address] [id number] [address] [place] [address], [place] [address] 24 Jun, 2014 [facility] [address] [id number] [address] [place] [address], [place] [address] 24 Jun, 2013 [facility] [address] [id number] [address] [place] [address], [place] [address] 23 Jun, 2013 [facility] [address] [id number] [address] [place] [address], [place] [address] 23 Jun, 2013 [facility] [address] [id number] [address] [place] [address], [place] [address] 19 Jun, 2013 [facility] [address] [id number] [address] [place] [address] 19 Jun, 2013 [facility] [address] [id number] [address] [place] [address], [place] [address] 11 Jun, 2013 [facility] [address] [id number] [address] [place] [address], [place] [address] 11 Jun, 2013 [facility] [address] [id number] [address] [place] [address], [place] [address] 11 Jun, 2013 [facility] [address] [id number] [facility] [place] [address] 11 Jun, 2014 [facility] [address] [id number] [facility] [place] [address] Jun, [facility] [address] [id number] [facility] [place] [address] Jun, [facility] [address] [id number] [address] [place] [address], [place] [address] Jun, [facility] [address] [id number] [address] [place] [address], [place] [address] Jun, [facility] [address] [id number] [address] [place] [address], [place] [address] May, [facility] [address] [id number] [address] [place] [address], [place] [address] May, [facility] [address] [id number] [address] [place] [address], [place] [address] May, [facility] [address] [id number] [address] [place] [address], [place] [address] May, [facility] [address] [id number] [address] [place] [address], [place] [address] May, [facility] [address] [id number] [address] [place] [address], [place] [address] May, [facility] [address] [id number] [address] [place] [address], [place] [address] Apr, [facility] [address] [id number] [address] [place] [address], [place] [address] Apr, [facility] [address] [id number] [address] [place] [address], [place] [address] Apr, [facility] [address] [id number] [address] [place] [address], [place] [address] Apr, [facility] [address] [id number] [address] [place] [address], [place] [address] Apr, [facility] [address] [id number] [address] [place] [address], [place] [address] Apr, [facility] [address] [id number] [address] [place] [address], [place] [address] Apr, [facility] [address] [id number] [address] [place] [address], [place] [address] Apr, [facility] [address] [id number] [address] [place] [address], [place] [address] Apr, [facility] [address] [id number] [address] [place] [address], [place] [address] Apr, [facility] [address] [id number] [address] [place] [address], [place] [address] Apr, [facility] [address] [id number] [address] [place] [address], [place] [address] Mar, [facility] [address] [id number] [address] [place] [address], [place] [address] Mar, [facility] [address] [id number] [address] [place] [address], [place] [address] Mar, [facility] [address] [id number] [address] [place] [address], [place] [address] Mar, [facility] [address] [id number] [address] [place] [address], [place] [address] February, [facility] [address] [id number] [address] [place] [address], [place] [address] February, [facility] [address] [id number] [address] [place] [address], [place] [address] Jan, [facility] [address] [id number] [address] [place] [address], [place] [address] Jan, [facility] [address] [place] [id number] Jan, [facility] [address] [id number] [address] [place] [address], [place] [address] Jan, [facility] [address] [id number] [facility] [place] [address] Jan, [facility] [address] [id number] [facility] [place] [address] Jan, [facility] [address] [id number] [address] [place] [address], [place] [address] Jan, [facility] [address] [id number] [address] [place] [address], [place] [address] Jan, [facility] [address] [id number] [address] [place] [address], [place] [address] Jan, [facility] [address] [id number] [address] [place] [address], [place] [address] Jan, [facility] [address] [id number] [address] [place] [address], [place] [address] Jan, [facility] [address] [id number] [address] [place] [address], [place] [address] Jan, [facility] [address] [id number] [address] [place] [address], [place] [address] Jan, [facility] [address] [id number] [address] [place] [address], [place] [address] Jan, [facility] [address] [id number] [address] [place] [address], [place] [address] Jan, [facility] [address] [id number] [address] [place] [address], [place] [address] Jan, [facility] [address] [id number] [address] [place] [address], [place] [address] Jan, [facility] [address] [id number] [address] [place] [address], [place] [address] Dec, [facility] [address] [id number] [address] [place] [address], [place] [address] Dec, [facility] [address] [id number] [address] [place] [address], [place] [address] Dec, [facility] [address] [id number] [address] [place] [address], [place] [address] Dec, [facility] [address] [id number] [address] [place] [address], [place] [address] Dec, [facility] [address] [id number] [address] [place] [address], [place] [address] Dec, [facility] [address] [id number] [address] [place] [address], [place] [address] Dec, [facility] [address] [id number] [address] [place] [address], [place] [address] Nov, [facility] [address] [id number] [address] [place] [address], [place] [address] Nov, [facility] [address] [id number] [address] [place] [address], [place] [address] Nov, [facility] [address] [id number] [address] [place] [address], [place] [address] Nov, [facility] [address] [id number] [address] [place] [address], [place] [address] Nov, [facility] [address] [id number] [address] [place] [address], [place] [address] Nov, [facility] [address] [id number] [address] [place] [address], [place] [address] Nov, [facility] [address] [id number] [address] [place] [address], [place] [address] Oct, [facility] [address] [id number] [address] [place] [address], [place] [address] Oct, [facility] [address] [id number] [address] [place] [address], [place] [address] Sep, [facility] [address] [id number] [address] [place] [address], [place] [address] Sep, [facility] [address] [id number] [address] [place] [address], [place] [address] Sep, [facility] [address] [id number] [address] [place] [address], [place] [address] Sep, [facility] [address] [id number] [address] [place] [address], [place] [address] Sep, [facility] [address] [id number] [address] [place] [address], [place] [address] Sep, [facility] [address] [id number] [address] [place] [address], [place] [address] Sep, [facility] [address] [id number] [address] [place] [address], [place] [address] Sep, [facility] [address] [id number] [address] [place] [address], [place] [address] Sep, [facility] [address] [id number] [address] [place] [address], [place] [address] Sep, [facility] [address] [id number] [address] [place] [address], [place] [address] Aug, [facility] [address] [id number] [address] [place] [address] Aug, [facility] [address] [id number] [address] [place] [address] Aug, [facility] [address] [id number] [address] [place] [address] Aug, [facility] [address] [id number] [address] [place] [address], [place] [address] Aug, [facility] [address] [id number] [address] [place] [address] Jul, [facility] [address] [id number] [address] [place] [address], [place] [address] Jul, [facility] [address] [id number] [address] [place] [address] Jul, [facility] [place] [address] [facility] [id number] [address] [place] [address] Jul, IMMUNIZATIONS No Known Immunizations SOCIAL HISTORY [...]
--- OUTSIDE RECORDS SUMMARY | 2020-03-16 11:57 | XMS REPORT ---
Author Author Swathi Benavides Organization [facility] Address [address] [place] [address] Care Team Providers Care Sample Coordinator Name Role Phone WIL Benavides Unavailable PROBLEMS Type Condition ICD9-CM Code AHW45-TQ Code Onset Dates Condition S tatus SNOMED Code Problem Sensorineural hearing loss of right ear H90.41 Active 39359154 Problem Obstructive sleep apnea on CPAP G47.33 Active 11655849 Problem Periodic limb movement sleep disorder G47.61 Active 598027312 Problem Iron deficiency anemia due to chronic blood loss D 50.0 Active 04368948 Problem MACHUCA (nonalcoholic steatohepatitis) K75.81 Active 589615152 Problem Vitamin B12 deficiency E53.8 Active 328676877 Problem Chronic diarrhea K52.9 Active 236 484468 Problem Vitamin D deficiency E55.9 Active 74678151 Problem BMI 50.0-59.9, adult Z68.43 Active 314786247 Problem Fatty liver K76.0 Active 79826290 7 Problem Anxiety F41.9 Active 19164727 Problem Major depressive disorder, recurrent episode, moderate F33.1 Active 368344564 Problem Chronic tension-type headache, intractable G44.221 Active 249991914 Problem Right upper quadrant pain R10.11 Acti ve 17693438 Problem Frequent falls R29.6 Active 73297 2002 Problem Crohn's disease of both small and large intestin e with complication K50.819 Active 23389235 Problem Type 2 diabetes mellitus with other specified complication E11.69 Active 160660908050 Problem Hyperlipidemia, unspecified E78.5 Ac tive 30283868 Problem Mixed stress and urge urinary incontinence N39.46 Active 815787490 Problem Sinusitis chronic, frontal J32.1 Act katlyn 38989906 Problem Seasonal allergies J30.2 Active 4 84929214 Problem Other chronic pain G89.29 Active 8 2376178 Problem Hyperlipidemia E78.5 Active 90023 004 Problem Bilateral primary osteoarthritis of knee M17.0 Active 440460046 Problem Essential hypertension I10 Active 86616016 Problem Acquired hypothyroidism E03.9 Active 809559585 Problem History of hysterectomy for benign disease Z90.710 Active 491654722 Problem Morbid (severe) obesity due to excess calories E66 .01 Active 104024658 Problem Other cirrhosis of liver K74.69 Activ e 21061747 Problem Portal hypertension K76.6 Active 35134671 ALLERGIES No Information ENCOUNTERS Encounter Location Date Diagnosis [place] [address] [address] [facility] [id number] [address] [place] [address] February, [facility] [address] [facility] [address] February, Acute recurrent pansinusitis J01.41 [facility] [address] [facility] [place] [address] February, Acute maxillary sinusitis, recurrence no t specified J01.00 [place] [address] [address] [place] [id number] [address] [place] [address] Jan, Bilateral primary osteoarthr itis of knee M17.0 ; Morbid obesity E66.01 ; Viral syndrome B34.9 and Atrial dilatation, left I51.7 [place] [address] [address] [place] [id number] [address] [place] [address] Jan, [place] [address] [address] [place] [id number] [address] [place] [address] Dec, Trigeminy R00.8 [place] [address] [address] [place] [id number] [address] [place] [address] Dec, Essential hypertension I10 ; Morbid obesity E66.01 ; Low back pain M54.5 ; Other chronic pain G89.29 and Pain in right knee M25.561 [place] [address] [address] [place] [id number] [address] [place] [address] Nov, [place] [place] [id number] [address] [place] [address] Oct, Palpitations R00.2 [place] [address] [id number] [place] [address] 30 Oct, 2018 Encounter for Medicare felipe [...] small and large intestine with complication K50.[address] [address] Oct, [place] [address] [address] 02 Oct, 2018 Crohn's disease of both smal l and large intestine with complication K50.819 [facility] [place] [id number] [address] [place] [address] Jul, Sinusitis chronic, frontal J 32.1 ; Acute mucoid otitis media of both ears H65.113 ; Seasonal allergies J30.2 and BMI 50.0-59.9, adult Z68.43 [place] [id number] [address] [place] [address] Jul, Essential hypertension I10 ; Type 2 diabetes mellitus with other specified complication E11.69 ; BMI 50.0-59.9, adult Z68.43 ; Mixed stress and urge urinary incontinence N39.46 and Mid back pain on right side M54.[address] [address] Jun, Iron deficiency anemia due t o chronic blood loss D50.0 ; Hyperlipidemia E78.5 ; Type 2 diabetes mellitus with other specified complication E11.69 ; Vitamin B12 deficiency E53.8 and Vitamin D deficiency E55.9 [facility] [address] [place] [address] 14 Jun, 2018 Cough R05 and BMI 50.0-59.9, adult Z68.43 [place] [address] [address] Jun, [place] [address] [address] May, Iron deficiency anemia due t o chronic blood loss D50.0 ; Chronic diarrhea K52.9 ; Essential hypertension I10 ; Type 2 diabetes mellitus with other specified complication E11.69 ; Vitamin D deficiency E55.9 ; Colon stricture K56.699 ; Vitamin B12 deficiency E53.8 ; Hyperlipidemia E78.5 and BMI 50.0-59.9, adult Z68.43 [place] [address] [address] May, [place] [address] [address] Apr, Nonhealing wound of heel S91 .309A and Body mass index (BMI) of 50- 59.9 in adult Z68.43 [place] [address] [address] Mar, [place] [address] [address] Mar, BMI 50.0-59.9, adult Z68.43 ; Flank pain R10.9 and Weight loss counseling, encounter for Z71.3 [place] [address] [address] [place] [id number] [address] [place] [address] February, [place] [address] [address] Jan, [place] [address] [address] [place] [id number] [address] [place] [address] Jan, [facility] [address] [place] [id number] [address] [place] [address] Jan, Diarrhea due to staphylococc us A04.8 and Diarrhea, unspecified type R19.7 [place] [address] [address] Jan, Acquired hypothyroidism E03. 9 ; Type 2 diabetes mellitus with other specified complication E11.69 ; Hyperlipidemia E78.5 ; Essential hypertension I10 ; Major depressive disorder, recurrent episode, moderate F33.1 and Vitamin D deficiency E55.9 [place] [address] [address] Jan, Type 2 diabetes mellitus wit h other specified complication E11.69 ; Hyperlipidemia E78.5 ; Essential hypertension I10 ; Acquired hypothyroidism E03.9 ; Major depressive disorder, recurrent episode, moderate F33.1 ; Vitamin D deficiency E55.9 ; Sinus congestion R09.81 and BMI 50.0-59.9, adult Z68.43 [place] [address] [address] Dec, [place] [address] [address] Sep, Encounter for immunization Z 23 [place] [address] [address] Sep, [place] [address] [address] Sep, Vitamin B12 deficiency E53.8 [place] [address] [address] Aug, [place] [address] [address] Aug, BMI 60.0-69.9, adult Z68.44 and Acute non-recurrent maxillary sinusitis J01.00 [place] [address] [address] Aug, [place] [address] [address] Aug, Medicare annual wellness vis it, initial Z00.00 ; Screening for breast cancer Z12.31 ; BMI 40.0-44.9, adult Z68.41 and Acquired hypothyroidism E03.9 [place] [address] [address] [facility] [id number] [address] [place] [address] Jul, Actinic keratosis L57.0 [place] [address] [address] [place] [id number] [address] [place] [address] Jul, Actinic keratosis L57.0 [place] [address] [address] [facility] [id number] [address] [place] [address] Jul, Type 2 diabetes mellitus wit h other specified complication E11.69 ; Actinic keratosis L57.0 and Hypothyroidism, unspecified E03.9 [place] [address] [place] [address] Jul, [place] [address] [address] Jul, [place] [address] [address] [place] [id number] [address] [place] [address] Jul, Vitamin B12 deficiency E53.8 [place] [address] [place] [address] Jun, Acquired hypothyroidism E03. 9 and Chronic tension-type headache, intractable G44.221 [place] [address] [place] [address] Jun, Back muscle spasm M62.830 an d BMI 50.0-59.9, adult Z68.43 [place] [address] [address] [place] [id number] [address] [place] [address] Jun, Vitamin B12 deficiency E53.8 [place] [address] [place] [id number] [address] [place] [address] 05 Jun, 2017 Crohn's disease of both smal l and large intestine with complication K50.819 [place] [address] [address] Jun, Crohn's disease of both smal l and large intestine with complication K50.819 [place] [address] [address] May, Hyperlipidemia E78.5 ; Anxie ty F41.9 and Essential hypertension I10 [place] [address] [address] May, [place] [address] [address] May, Encounter for immunization Z 23 and Vitamin B12 deficiency E53.8 [place] [address] [address] May, [place] [address] [address] Apr, [place] [address] [address] Apr, [place] [address] [address] Apr, Crohn's disease of both smal l and large intestine with complication K50.819 [place] [address] [address] Apr, Vitamin B12 deficiency E53.8 [place] [address] [address] Apr, Crohn's disease of both smal l and large intestine with complication K50.819 and Acute pain of right shoulder M25.511 [place] [address] [address] Mar, Type 2 diabetes mellitus wit hout complication E11.9 ; Frequent falls R29.6 and Other chest pain R07.89 [place] [address] [address] Mar, [place] [address] [id number] [address] [place] [address] Mar, [facility] [address] [facility] [id number] [address] [place] [address] Mar, Type 2 diabetes mellitus wit hout complication E11.9 and Blurry vision, bilateral H53.8 [place] [address] [id number] [address] [place] [address] Mar, Vitamin B12 deficiency E53.8 [facility] [address] [id number] [address] [place] [address] Mar, Crohn's disease of both smal l and large intestine with complication K50.819 [place] [address] [address] [facility] [id number] [address] [place] [address] February, Vitamin B12 deficiency E53.8 [place] [address] [address] [facility] [id number] [address] [place] [address] Jan, Crohn's disease of both smal l and large intestine with complication K50.819 [place] [address] [id number] [address] [place] [address] Jan, Crohn's disease of both smal l and large intestine with complication K50.819 [facility] [address] [facility] [id number] [address] [place] [address] Jan, Dark brown-colored urine R82 .99 and Acute suppurative otitis media of right ear without spontaneous rupture of tympanic membrane, recurrence not specified H66.001 [place] [address] [address] [facility] [id number] [address] [place] [address] Jan, Encounter for immunization Z 23 [place] [address] [address] [facility] [id number] [address] [place] [address] Dec, Crohn's disease of both smal l and large intestine with complication K50.819 and Eustachian tube dysfunction, right H69.81 [facility] [address] [place] [address] [address] Dec, [place] [address] [address] Dec, Contusion of right knee, ini tial encounter S80.01XA [place] [address] [address] Dec, [place] [address] [address] Dec, Acute pain of right knee M25 .[address] [address] Dec, Iron deficiency anemia due t o chronic blood loss D50.[address] [address] Dec, Hyperlipidemia E78.5 ; Type 2 diabetes mellitus without complication E11.9 ; Vitamin B12 deficiency E53.8 ; Essential hypertension I10 ; Obstructive sleep apnea on CPAP G47.33 and Periodic limb movement sleep disorder G47.[address] [address] Nov, Type 2 diabetes mellitus wit hout complication E11.9 ; Vitamin B12 deficiency E53.8 ; Hyperlipidemia E78.5 ; Essential hypertension I10 ; Obstructive sleep apnea on CPAP G47.33 ; Periodic limb movement sleep disorder G47.61 ; Anxiety F41.9 ; Acquired hypothyroidism E03.9 and Chronic tension-type headache, intractable G44.221 [place] [address] [address] Nov, Crohn's disease of both smal l and large intestine with complication K50.[address] [address] Nov, Vitamin B12 deficiency E53.[address] [address] Oct, [place] [address] [id number] [address] [place] [address] Oct, Vitamin B12 deficiency E53.8 [facility] [address] [id number] [address] [place] [address] Sep, [facility] [address] [id number] [address] [place] [address] Sep, Vitamin B12 deficiency E53.8 [facility] [address] [id number] [address] [place] [address] Aug, [facility] [address] [id number] [address] [place] [address] Aug, Vitamin B12 deficiency E53.8 [facility] [address] [id number] [address] [place] [address] Aug, [facility] [address] [id number] [address] [place] [address] Jul, Elevated ALT measurement R74 .0 [facility] [address] [id number] [address] [place] [address] Jul, Hematuria R31.9 ; Acute righ t-sided thoracic back pain M54.6 ; Major depressive disorder, recurrent episode, moderate F33.1 and Elevated ALT measurement R74.0 [facility] [address] [id number] [address] [place] [address] Jul, [facility] [address] [id number] [address] [place] [address] Jul, Elevated ALT measurement R74 .0 [facility] [address] [id number] [address] [place] [address] 14 Jul, 2016 Iron deficiency anemia due t o chronic blood loss D50.0 [facility] [address] [id number] [address] [place] [address] 14 Jul, 2016 Type 2 diabetes mellitus wit hout complication E11.9 ; Acquired hypothyroidism E03.9 ; Iron deficiency anemia due to chronic blood loss D50.0 ; Hyperlipidemia E78.5 and Essential hypertension I10 [facility] [address] [id number] [address] [place] [address] 26 Jun, 2016 [facility] [address] [facility] [id number] [address] [place] [address] 20 Jun, 2016 Vitamin B12 deficiency E53.8 [facility] [address] [facility] [id number] [address] [place] [address] 16 Jun, 2016 Type 2 diabetes mellitus wit hout complication E11.9 ; Acquired hypothyroidism E03.9 ; Iron deficiency anemia due to chronic blood loss D50.0 ; Hyperlipidemia E78.5 ; Essential hypertension I10 ; Chronic tension-type headache, intractable G44.221 ; Pulsatile tinnitus, bilateral H93.13 ; Obstructive sleep apnea on CPAP G47.33 and Major depressive disorder, recurrent episode, moderate F33.1 [place] [address] [address] [facility] [id number] [address] [place] [address] May, Vitamin B12 deficiency E53.8 [place] [address] [address] [facility] [id number] [address] [place] [address] May, [place] [address] [address] [facility] [id number] [address] [place] [address] Apr, Vitamin B12 deficiency E53.8 [place] [address] [facility] [id number] [address] [place] [address] Apr, [place] [address] [address] [facility] [id number] [address] [place] [address] Mar, Chronic tension-type headach e, intractable G44.221 and Major depressive disorder, recurrent episode, moderate F33.1 [place] [address] [facility] [id number] [address] [place] [address] 14 Mar, 2016 Vitamin B12 deficiency E53.8 [facility] [address] [facility] [id number] [address] [place] [address] February, [facility] [address] [facility] [id number] [address] [place] [address] February, Vitamin B12 deficiency E53.8 [facility] [address] [id number] [address] [place] [address] February, [facility] [address] [id number] [address] [place] [address] 27 Jan, 2016 Dysuria R30.0 [facility] [address] [facility] [id number] [address] [place] [address] Jan, Type 2 diabetes mellitus wit hout complication E11.9 and Essential hypertension I10 [facility] [address] [id number] [address] [place] [address] 15 Jan, 2016 Chronic diarrhea K52.9 [facility] [address] [id number] [address] [place] [address] 13 Jan, 2016 [facility] [address] [facility] [id number] [address] [place] [address] Jan, Chronic diarrhea K52.9 [facility] [address] [id number] [address] [place] [address] Jan, [facility] [address] [id number] [address] [place] [address] 12 Jan, 2016 Dysuria R30.0 [facility] [address] [facility] [id number] [address] [place] [address] 07 Jan, 2016 Vitamin B12 deficiency E53.8 [facility] [address] [facility] [id number] [address] [place] [address] 07 Jan, 2016 Dysuria R30.0 and Iron defic iency anemia due to chronic blood loss D50.0 [facility] [address] [id number] [address] [place] [address] 05 Jan, 2016 Dysuria R30.0 [facility] [address] [facility] [id number] [address] [place] [address] 04 Jan, 2016 [facility] [address] [facility] [id number] [address] [place] [address] 15 Dec, 2015 [facility] [address] [facility] [id number] [address] [place] [address] 11 Dec, 2015 Iron deficiency anemia due t o chronic blood loss D50.0 [facility] [address] [facility] [id number] [address] [place] [address] 10 Dec, 2015 Dysuria R30.0 ; Fatigue R53. 83 ; Hyperlipidemia E78.5 and Diarrhea R19.7 [facility] [address] [facility] [id number] [address] [place] [address] Dec, [facility] [address] [facility] [id number] [address] [place] [address] Dec, [place] [address] [facility] [id number] [address] [place] [address] Nov, Vitamin B12 deficiency E53.8 [facility] [address] [facility] [id number] [address] [place] [address] Oct, Vitamin B12 deficiency E53.8 [facility] [address] [facility] [id number] [address] [place] [address] Oct, [facility] [address] [facility] [id number] [address] [place] [address] Oct, Headache R51 [facility] [address] [facility] [id number] [address] [place] [address] 07 Oct, 2015 Essential hypertension I10 ; Type 2 diabetes mellitus without complication E11.9 ; Vitamin B12 deficiency E53.8 ; Acquired hypothyroidism E03.9 ; Iron deficiency anemia due to chronic blood loss D50.0 and Hyperlipidemia E78.5 [facility] [address] [facility] [id number] [address] [place] [address] Sep, Essential hypertension I10 ; Vitamin B12 deficiency E53.8 ; Iron deficiency anemia due to chronic blood loss D50.0 ; Type 2 diabetes mellitus without complication E11.9 ; Hyperlipidemia E78.5 and Acquired hypothyroidism E03.9 [facility] [address] [facility] [id number] [address] [place] [address] Sep, [facility] [address] [facility] [id number] [address] [place] [address] Sep, [facility] [address] [place] [id number] [address] [place] [address] Jul, [facility] [address] [facility] [id number] [address] [place] [address] Jun, [facility] [address] [facility] [id number] [place] [address] Jun, [facility] [address] [facility] [id number] [address] [place] [address] Jun, Hyperlipidemia 272.4 ; Iron deficiency anemia 280.9 ; Hypothyroidism 244.9 ; Diabetes mellitus without mention of complication, type II or unspecified type, not stated as uncontrolled 250.00 and Hypertension 401.9 [facility] [id number] [place] [address] Jun, [facility] [address] [place] [id number] [address] [place] [address] Jun, [facility] [address] [place] [id number] [address] [place] [address] May, Hyperlipidemia 272.4 [facility] [address] [place] [id number] [address] [place] [address] May, [facility] [address] [place] [id number] [address] [place] [address] May, [facility] [address] [facility] [id number] [address] [place] [id number] Apr, Diabetes mellitus without me ntion of complication, type II or unspecified type, not stated as uncontrolled 250.00 ; Hypothyroidism 244.9 ; Hyperlipidemia 272.4 ; Pain in joint, lower leg 719.46 and RUQ pain 789.01 [facility] [address] [id number] [address] [place] [id number] Mar, Sinusitis 473.9 [facility] [address] [id number] [address] [place] [id number] Mar, [facility] [address] [id number] [address] [place] [id number] Mar, [facility] [address] [id number] [address] [place] [id number] Mar, Hematochezia 578.1 [facility] [address] [id number] [address] [place] [id number] February, Sinusitis 473.9 [facility] [facility] [address] [id number] [address] [place] [address], [place] [address] February, [facility] [address] [id number] [address] [place] [address] 14 Jan, 2015 [facility] [address] [id number] [address] [place] [address] Jan, [facility] [address] [id number] [address] [place] [address] Dec, [facility] [address] [id number] [address] [place] [address] Dec, [facility] [address] [id number] [address] [place] [address] Dec, [facility] [address] [id number] [address] [place] [address] Dec, [facility] [address] [id number] [address] [place] [address] 24 Dec, 2014 [facility] [address] [id number] [address] [place] [address] 24 Dec, 2014 [facility] [address] [id number] [address] [place] [address] 23 Dec, 2014 [facility] [address] [id number] [address] [place] [address] 13 Dec, 2014 [facility] [address] [id number] [address] [place] [address] Dec, [facility] [address] [id number] [address] [place] [address], [place] [address] Dec, [facility] [address] [id number] [address] [place] [address], [place] [address] Dec, [facility] [address] [id number] [address] [place] [address], [place] [address] Nov, [facility] [address] [id number] [address] [place] [address], [place] [address] Nov, [facility] [address] [id number] [address] [place] [address], [place] [address] Nov, [facility] [address] [id number] [address] [place] [address], [place] [address] Nov, [facility] [address] [id number] [address] [place] [address], [place] [address] Oct, [facility] [address] [id number] [address] [place] [address], [place] [address] Oct, [facility] [address] [id number] [address] [place] [address], [place] [address] Oct, [facility] [address] [id number] [address] [place] [address], [place] [address] Oct, [facility] [address] [id number] [address] [place] [address], [place] [address] Oct, [facility] [address] [id number] [address] [place] [address], [place] [address] Oct, [facility] [address] [id number] [address] [place] [address], [place] [address] Sep, [facility] [address] [id number] [address] [place] [address], [place] [address] Sep, [facility] [address] [id number] [address] [place] [address], [place] [address] Sep, [facility] [address] [id number] [address] [place] [address], [place] [address] Sep, [facility] [address] [id number] [address] [place] [address], [place] [address] Sep, [facility] [address] [id number] [address] [place] [address], [place] [address] Sep, [facility] [address] [id number] [address] [place] [address], [place] [address] Sep, [facility] [address] [id number] [address] [place] [address], [place] [address] Aug, [facility] [address] [id number] [address] [place] [address], [place] [address] Aug, [facility] [address] [id number] [address] [place] [address], [place] [address] Aug, [facility] [address] [id number] [address] [place] [address], [place] [address] Aug, [facility] [address] [id number] [address] [place] [address], [place] [address] Aug, [facility] [address] [id number] [address] [place] [address], [place] [address] Aug, [facility] [address] [id number] [address] [place] [address], [place] [address] Aug, [facility] [address] [id number] [address] [place] [address], [place] [address] Aug, [facility] [address] [id number] [address] [place] [address], [place] [address] Aug, [facility] [address] [id number] [address] [place] [address], [place] [address] 17 Aug, 2014 [facility] [address] [id number] [address] [place] [address], [place] [address] 13 Aug, 2014 [facility] [address] [id number] [address] [place] [address], [place] [address] Aug, [facility] [address] [id number] [address] [place] [address], [place] [address] Aug, [facility] [address] [id number] [address] [place] [address], [place] [address] Aug, [facility] [address] [id number] [address] [place] [address], [place] [address] Jul, [facility] [address] [id number] [address] [place] [address], [place] [address] Jul, [facility] [address] [id number] [address] [place] [address], [place] [address] Jul, [facility] [address] [id number] [address] [place] [address], [place] [address] Jul, [facility] [address] [id number] [address] [place] [address], [place] [address] 24 Jun, 2014 [facility] [address] [id number] [address] [place] [address], [place] [address] 24 Jun, 2013 [facility] [address] [id number] [address] [place] [address], [place] [address] 23 Jun, 2013 [facility] [address] [id number] [address] [place] [address], [place] [address] 23 Jun, 2013 [facility] [address] [id number] [address] [place] [address], [place] [address] 19 Jun, 2013 [facility] [address] [id number] [address] [place] [address] 19 Jun, 2013 [facility] [address] [id number] [address] [place] [address], [place] [address] 11 Jun, 2013 [facility] [address] [id number] [address] [place] [address], [place] [address] 11 Jun, 2013 [facility] [address] [id number] [address] [place] [address], [place] [address] 11 Jun, 2013 [facility] [address] [id number] [facility] [place] [address] 11 Jun, 2014 [facility] [address] [id number] [facility] [place] [address] Jun, [facility] [address] [id number] [facility] [place] [address] Jun, [facility] [address] [id number] [address] [place] [address], [place] [address] Jun, [facility] [address] [id number] [address] [place] [address], [place] [address] Jun, [facility] [address] [id number] [address] [place] [address], [place] [address] May, [facility] [address] [id number] [address] [place] [address], [place] [address] May, [facility] [address] [id number] [address] [place] [address], [place] [address] May, [facility] [address] [id number] [address] [place] [address], [place] [address] May, [facility] [address] [id number] [address] [place] [address], [place] [address] May, [facility] [address] [id number] [address] [place] [address], [place] [address] May, [facility] [address] [id number] [address] [place] [address], [place] [address] Apr, [facility] [address] [id number] [address] [place] [address], [place] [address] Apr, [facility] [address] [id number] [address] [place] [address], [place] [address] Apr, [facility] [address] [id number] [address] [place] [address], [place] [address] Apr, [facility] [address] [id number] [address] [place] [address], [place] [address] Apr, [facility] [address] [id number] [address] [place] [address], [place] [address] Apr, [facility] [address] [id number] [address] [place] [address], [place] [address] Apr, [facility] [address] [id number] [address] [place] [address], [place] [address] Apr, [facility] [address] [id number] [address] [place] [address], [place] [address] Apr, [facility] [address] [id number] [address] [place] [address], [place] [address] Apr, [facility] [address] [id number] [address] [place] [address], [place] [address] Apr, [facility] [address] [id number] [address] [place] [address], [place] [address] Mar, [facility] [address] [id number] [address] [place] [address], [place] [address] Mar, [facility] [address] [id number] [address] [place] [address], [place] [address] Mar, [facility] [address] [id number] [address] [place] [address], [place] [address] Mar, [facility] [address] [id number] [address] [place] [address], [place] [address] February, [facility] [address] [id number] [address] [place] [address], [place] [address] February, [facility] [address] [id number] [address] [place] [address], [place] [address] Jan, [facility] [address] [id number] [address] [place] [address], [place] [address] Jan, [facility] [place] [address] [place], [place] [id number] Jan, [facility] [address] [id number] [address] [place] [address], [place] [address] Jan, [facility] [address] [id number] [facility] [place] [address] Jan, [facility] [address] [id number] [facility] [place] [address] Jan, [facility] [address] [id number] [address] [place] [address], [place] [address] Jan, [facility] [address] [id number] [address] [place] [address], [place] [address] Jan, [facility] [address] [id number] [address] [place] [address], [place] [address] Jan, [facility] [address] [id number] [address] [place] [address], [place] [address] Jan, [facility] [address] [id number] [address] [place] [address], [place] [address] Jan, [facility] [address] [id number] [address] [place] [address], [place] [address] Jan, [facility] [address] [id number] [address] [place] [address], [place] [address] Jan, [facility] [address] [id number] [address] [place] [address], [place] [address] Jan, [facility] [address] [id number] [address] [place] [address], [place] [address] Jan, [facility] [address] [id number] [address] [place] [address], [place] [address] Jan, [facility] [address] [id number] [address] [place] [address], [place] [address] Jan, [facility] [address] [id number] [address] [place] [address], [place] [address] Dec, [facility] [address] [id number] [address] [place] [address], [place] [address] Dec, [facility] [address] [id number] [address] [place] [address], [place] [address] Dec, [facility] [address] [id number] [address] [place] [address], [place] [address] Dec, [facility] [address] [id number] [address] [place] [address], [place] [address] Dec, [facility] [address] [id number] [address] [place] [address], [place] [address] Dec, [facility] [address] [id number] [address] [place] [address], [place] [address] Dec, [facility] [address] [id number] [address] [place] [address], [place] [address] Nov, [facility] [address] [id number] [address] [place] [address], [place] [address] Nov, [facility] [address] [id number] [address] [place] [address], [place] [address] Nov, [facility] [address] [id number] [address] [place] [address], [place] [address] Nov, [facility] [address] [id number] [address] [place] [address], [place] [address] Nov, [facility] [address] [id number] [address] [place] [address], [place] [address] Nov, [facility] [address] [id number] [address] [place] [address], [place] [address] Nov, [facility] [address] [id number] [address] [place] [address], [place] [address] Oct, [facility] [address] [id number] [address] [place] [address], [place] [address] Oct, [facility] [address] [id number] [address] [place] [address], [place] [address] Sep, [facility] [address] [id number] [address] [place] [address], [place] [address] Sep, [facility] [address] [id number] [address] [place] [address], [place] [address] Sep, [facility] [address] [id number] [address] [place] [address], [place] [address] Sep, [facility] [address] [id number] [address] [place] [address], [place] [address] Sep, [facility] [address] [id number] [address] [place] [address], [place] [address] Sep, [facility] [address] [id number] [address] [place] [address], [place] [address] Sep, [facility] [address] [id number] [address] [place] [address], [place] [address] Sep, [facility] [address] [id number] [address] [place] [address], [place] [address] Sep, [facility] [address] [id number] [address] [place] [address], [place] [address] Sep, [facility] [address] [id number] [address] [place] [address], [place] [address] Aug, [facility] [address] [id number] [address] [place] [address] Aug, [facility] [address] [id number] [address] [place] [address] Aug, [facility] [address] [id number] [address] [place] [address] Aug, [facility] [address] [id number] [address] [place] [address], [place] [address] Aug, [facility] [address] [id number] [address] [place] [address] Jul, [facility] [address] [id number] [address] [place] [address], [place] [address] Jul, [facility] [address] [id number] [address] [place] [address] Jul, [facility] [address] [facility] [id number] [address] [place] [address] Jul, IMMUNIZATIONS No Known Immunizations SOCIAL HISTORY Never Assessed REASON FOR VISIT PLAN OF CARE VITAL SIGNS MEDICATIONS Unknown Medications RESULTS No Results PROCEDURES Procedure Date Ordered Result Body Site GLYCATED HEMOGLOBIN TEST Nov 26, 2014 INSTRUCTIONS MEDICATIONS ADMINISTERED No Known [...]
--- OUTSIDE RECORDS SUMMARY | 2020-03-16 11:58 | XMS REPORT ---
Author Author Swathi Benavides Organization [facility] Address [address] [place] [address] Care Team Providers Care Electrical Engineering Professor Name Role Phone WIL Benavides Unavailable PROBLEMS Type Condition ICD9-CM Code LGE85-[place] Code Onset Dates Condition S tatus SNOMED Code Problem Sensorineural hearing loss of right ear H90.41 Active 04067228 Problem Obstructive sleep apnea on CPAP G47.33 Active 51030968 Problem Periodic limb movement sleep disorder G47.61 Active 406330346 Problem Iron deficiency anemia due to chronic blood loss D 50.0 Active 67054500 Problem MACHUCA (nonalcoholic steatohepatitis) K75.81 Active 696830520 Problem Vitamin B12 deficiency E53.8 Active 590191573 Problem Chronic diarrhea K52.9 Active 236 450914 Problem Vitamin D deficiency E55.9 Active 24023238 Problem BMI 50.0-59.9, adult Z68.43 Active 904185673 Problem Fatty liver K76.0 Active 52139617 7 Problem Anxiety F41.9 Active 57976871 Problem Major depressive disorder, recurrent episode, moderate F33.1 Active 155619104 Problem Chronic tension-type headache, intractable G44.221 Active 943746315 Problem Right upper quadrant pain R10.11 Acti ve 69558963 Problem Frequent falls R29.6 Active 41120 2002 Problem Crohn's disease of both small and large intestin e with complication K50.819 Active 62548803 Problem Type 2 diabetes mellitus with other specified complication E11.69 Active 435472383805 Problem Hyperlipidemia, unspecified E78.5 Ac tive 43804046 Problem Mixed stress and urge urinary incontinence N39.46 Active 046185242 Problem Sinusitis chronic, frontal J32.1 Act katlyn 59547685 Problem Seasonal allergies J30.2 Active 4 31174747 Problem Other chronic pain G89.29 Active 8 5973114 Problem Hyperlipidemia E78.5 Active 13495 004 Problem Bilateral primary osteoarthritis of knee M17.0 Active 057023916 Problem Essential hypertension I10 Active 28703585 Problem Acquired hypothyroidism E03.9 Active 481364569 Problem History of hysterectomy for benign disease Z90.710 Active 882942304 Problem Morbid (severe) obesity due to excess calories E66 .01 Active 673432136 Problem Other cirrhosis of liver K74.69 Activ e 16329320 Problem Portal hypertension K76.6 Active 22070839 ALLERGIES No Information ENCOUNTERS Encounter Location Date Diagnosis [place] [address] [address] [facility] [id number] [address] [place] [address] February, [facility] [address] [place] [address] February, Acute recurrent pansinusitis J01.41 [facility] IN [facility] [address] [place] [address] February, Acute maxillary sinusitis, recurrence no t specified J01.00 [place] [address] [place] [id number] [address] [place] [address] Jan, Bilateral primary osteoarthr itis of knee M17.0 ; Morbid obesity E66.01 ; Viral syndrome B34.9 and Atrial dilatation, left I51.7 [place] [address] [place] [id number] [address] [place] [address] Jan, [place] [address] [place] [id number] [address] [place] [address] Dec, Trigeminy R00.8 [place] [address] [address] [place] [id number] [address] [place] [address] Dec, Essential hypertension I10 ; Morbid obesity E66.01 ; Low back pain M54.5 ; Other chronic pain G89.29 and Pain in right knee M25.561 [place] [address] [address] [place] [id number] [address] [place] [address] Nov, [place] [id number] [address] [place] [address] Oct, Palpitations R00.2 [place] [address] [id number] [place] [address] 30 Oct, 2018 Encounter for Medicare felipe [...] small and large intestine with complication K50.[address] [address] Oct, [place] [address] [address] 02 Oct, 2018 Crohn's disease of both smal l and large intestine with complication K50.819 [facility] [place] [id number] [place] [address] Jul, Sinusitis chronic, frontal J 32.1 ; Acute mucoid otitis media of both ears H65.113 ; Seasonal allergies J30.2 and BMI 50.0-59.9, adult Z68.43 [place] [id number] [address] [place] [address] Jul, Essential hypertension I10 ; Type 2 diabetes mellitus with other specified complication E11.69 ; BMI 50.0-59.9, adult Z68.43 ; Mixed stress and urge urinary incontinence N39.46 and Mid back pain on right side M54.[address] [address] Jun, Iron deficiency anemia due t o chronic blood loss D50.0 ; Hyperlipidemia E78.5 ; Type 2 diabetes mellitus with other specified complication E11.69 ; Vitamin B12 deficiency E53.8 and Vitamin D deficiency E55.9 [facility] [address] [place] [address] 14 Jun, 2018 Cough R05 and BMI 50.0-59.9, adult Z68.43 [place] [address] [address] Jun, [place] [address] [address] May, Iron deficiency anemia due t o chronic blood loss D50.0 ; Chronic diarrhea K52.9 ; Essential hypertension I10 ; Type 2 diabetes mellitus with other specified complication E11.69 ; Vitamin D deficiency E55.9 ; Colon stricture K56.699 ; Vitamin B12 deficiency E53.8 ; Hyperlipidemia E78.5 and BMI 50.0-59.9, adult Z68.43 [place] [address] [address] May, [place] [address] [address] Apr, Nonhealing wound of heel S91 .309A and Body mass index (BMI) of 50- 59.9 in adult Z68.43 [place] [address] [address] Mar, [place] [address] [address] Mar, BMI 50.0-59.9, adult Z68.43 ; Flank pain R10.9 and Weight loss counseling, encounter for Z71.3 [place] [address] [address] [place] [id number] [place] [address] February, [place] [address] [address] Jan, [place] [address] [address] [place] [id number] [place] [address] Jan, [facility] [address] [place] [id number] [place] [address] Jan, Diarrhea due to staphylococc us A04.8 and Diarrhea, unspecified type R19.7 [place] [address] [address] Jan, Acquired hypothyroidism E03. 9 ; Type 2 diabetes mellitus with other specified complication E11.69 ; Hyperlipidemia E78.5 ; Essential hypertension I10 ; Major depressive disorder, recurrent episode, moderate F33.1 and Vitamin D deficiency E55.9 [place] [address] [address] Jan, Type 2 diabetes mellitus wit h other specified complication E11.69 ; Hyperlipidemia E78.5 ; Essential hypertension I10 ; Acquired hypothyroidism E03.9 ; Major depressive disorder, recurrent episode, moderate F33.1 ; Vitamin D deficiency E55.9 ; Sinus congestion R09.81 and BMI 50.0-59.9, adult Z68.43 [place] [address] [address] Dec, [place] [address] [address] Sep, Encounter for immunization Z 23 [place] [address] [address] Sep, [place] [address] [address] Sep, Vitamin B12 deficiency E53.8 [place] [address] [address] Aug, [place] [address] [address] Aug, BMI 60.0-69.9, adult Z68.44 and Acute non-recurrent maxillary sinusitis J01.00 [place] [address] [address] Aug, [place] [address] [address] Aug, Medicare annual wellness vis it, initial Z00.00 ; Screening for breast cancer Z12.31 ; BMI 40.0-44.9, adult Z68.41 and Acquired hypothyroidism E03.9 [place] [address] [address] [facility] [id number] [address] [place] [address] Jul, Actinic keratosis L57.0 [place] [address] [place] [id number] [address] [place] [address] Jul, Actinic keratosis L57.0 [place] [address] [address] [facility] [id number] [address] [place] [address] Jul, Type 2 diabetes mellitus wit h other specified complication E11.69 ; Actinic keratosis L57.0 and Hypothyroidism, unspecified E03.9 [place] [address] [place] [address] Jul, [place] [address] [address] Jul, [place] [address] [place] [id number] [place] [address] Jul, Vitamin B12 deficiency E53.8 [place] [address] [place] [address] Jun, Acquired hypothyroidism E03. 9 and Chronic tension-type headache, intractable G44.221 [place] [address] [address] [place] [address] Jun, Back muscle spasm M62.830 an d BMI 50.0-59.9, adult Z68.43 [place] [address] [place] [id number] [address] [place] [address] Jun, Vitamin B12 deficiency E53.8 [place] [address] [address] [place] [id number] [address] [place] [address] 05 Jun, 2017 Crohn's disease of both smal l and large intestine with complication K50.819 [place] [address] [address] Jun, Crohn's disease of both smal l and large intestine with complication K50.819 [place] [address] [address] May, Hyperlipidemia E78.5 ; Anxie ty F41.9 and Essential hypertension I10 [place] [address] [address] May, [place] [address] [address] May, Encounter for immunization Z 23 and Vitamin B12 deficiency E53.8 [place] [address] [address] May, [place] [address] [address] Apr, [place] [address] [address] Apr, [place] [address] [address] Apr, Crohn's disease of both smal l and large intestine with complication K50.819 [place] [address] [address] Apr, Vitamin B12 deficiency E53.8 [place] [address] [address] Apr, Crohn's disease of both smal l and large intestine with complication K50.819 and Acute pain of right shoulder M25.511 [place] [address] [address] Mar, Type 2 diabetes mellitus wit hout complication E11.9 ; Frequent falls R29.6 and Other chest pain R07.89 [place] [address] [address] Mar, [place] [address] [id number] [address] [place] [address] Mar, [facility] [address] [facility] [id number] [address] [place] [address] Mar, Type 2 diabetes mellitus wit hout complication E11.9 and Blurry vision, bilateral H53.8 [place] [address] [id number] [address] [place] [address] Mar, Vitamin B12 deficiency E53.8 [facility] [address] [id number] [address] [place] [address] Mar, Crohn's disease of both smal l and large intestine with complication K50.819 [place] [address] [address] [facility] [id number] [address] [place] [address] February, Vitamin B12 deficiency E53.8 [place] [address] [address] [facility] [id number] [address] [place] [address] Jan, Crohn's disease of both smal l and large intestine with complication K50.819 [place] [address] [id number] [address] [place] [address] Jan, Crohn's disease of both smal l and large intestine with complication K50.819 [facility] WALK IN [facility] [address] [facility] [id number] [address] [place] [address] Jan, Dark brown-colored urine R82 .99 and Acute suppurative otitis media of right ear without spontaneous rupture of tympanic membrane, recurrence not specified H66.001 [place] [address] [address] [facility] [id number] [address] [place] [address] Jan, Encounter for immunization Z 23 [place] [address] [address] [facility] [id number] [address] [place] [address] Dec, Crohn's disease of both smal l and large intestine with complication K50.819 and Eustachian tube dysfunction, right H69.81 [facility] [address] [address] Dec, [place] [address] [address] Dec, Contusion of right knee, ini tial encounter S80.01XA [place] [address] [address] Dec, [place] [address] [address] Dec, Acute pain of right knee M25 .[address] [address] Dec, Iron deficiency anemia due t o chronic blood loss D50.[address] [address] Dec, Hyperlipidemia E78.5 ; Type 2 diabetes mellitus without complication E11.9 ; Vitamin B12 deficiency E53.8 ; Essential hypertension I10 ; Obstructive sleep apnea on CPAP G47.33 and Periodic limb movement sleep disorder G47.[address] [address] Nov, Type 2 diabetes mellitus wit hout complication E11.9 ; Vitamin B12 deficiency E53.8 ; Hyperlipidemia E78.5 ; Essential hypertension I10 ; Obstructive sleep apnea on CPAP G47.33 ; Periodic limb movement sleep disorder G47.61 ; Anxiety F41.9 ; Acquired hypothyroidism E03.9 and Chronic tension-type headache, intractable G44.221 [place] [address] [address] Nov, Crohn's disease of both smal l and large intestine with complication K50.[address] [address] Nov, Vitamin B12 deficiency E53.[address] [address] Oct, [place] [address] [id number] [address] [place] [address] Oct, Vitamin B12 deficiency E53.8 [facility] [address] [id number] [address] [place] [address] Sep, [facility] [address] [id number] [address] [place] [address] Sep, Vitamin B12 deficiency E53.8 [facility] [address] [id number] [address] [place] [address] Aug, [facility] [address] [id number] [address] [place] [address] Aug, Vitamin B12 deficiency E53.8 [facility] [address] [id number] [address] [place] [address] Aug, [facility] [address] [id number] [address] [place] [address] Jul, Elevated ALT measurement R74 .0 [facility] [address] [id number] [address] [place] [address] Jul, Hematuria R31.9 ; Acute righ t-sided thoracic back pain M54.6 ; Major depressive disorder, recurrent episode, moderate F33.1 and Elevated ALT measurement R74.0 [facility] [address] [id number] [address] [place] [address] Jul, [facility] [address] [id number] [address] [place] [address] Jul, Elevated ALT measurement R74 .0 [facility] [address] [id number] [address] [place] [address] 14 Jul, 2016 Iron deficiency anemia due t o chronic blood loss D50.0 [facility] [address] [id number] [address] [place] [address] 14 Jul, 2016 Type 2 diabetes mellitus wit hout complication E11.9 ; Acquired hypothyroidism E03.9 ; Iron deficiency anemia due to chronic blood loss D50.0 ; Hyperlipidemia E78.5 and Essential hypertension I10 [facility] [address] [id number] [address] [place] [address] 26 Jun, 2016 [facility] [address] [facility] [id number] [address] [place] [address] 20 Jun, 2016 Vitamin B12 deficiency E53.8 [facility] [address] [facility] [id number] [address] [place] [address] 16 Jun, 2016 Type 2 diabetes mellitus wit hout complication E11.9 ; Acquired hypothyroidism E03.9 ; Iron deficiency anemia due to chronic blood loss D50.0 ; Hyperlipidemia E78.5 ; Essential hypertension I10 ; Chronic tension-type headache, intractable G44.221 ; Pulsatile tinnitus, bilateral H93.13 ; Obstructive sleep apnea on CPAP G47.33 and Major depressive disorder, recurrent episode, moderate F33.1 [place] [address] [address] [facility] [id number] [address] [place] [address] May, Vitamin B12 deficiency E53.8 [place] [address] [address] [facility] [id number] [address] [place] [address] May, [place] [address] [address] [facility] [id number] [address] [place] [address] Apr, Vitamin B12 deficiency E53.8 [place] [address] [facility] [id number] [address] [place] [address] Apr, [place] [address] [facility] [id number] [address] [place] [address] Mar, Chronic tension-type headach e, intractable G44.221 and Major depressive disorder, recurrent episode, moderate F33.1 [place] [address] [facility] [id number] [address] [place] [address] 14 Mar, 2016 Vitamin B12 deficiency E53.8 [facility] [address] [facility] [id number] [address] [place] [address] February, [facility] [address] [facility] [id number] [address] [place] [address] February, Vitamin B12 deficiency E53.8 [facility] [address] [id number] [address] [place] [address] February, [facility] [address] [id number] [address] [place] [address] 27 Jan, 2016 Dysuria R30.0 [facility] [address] [facility] [id number] [address] [place] [address] Jan, Type 2 diabetes mellitus wit hout complication E11.9 and Essential hypertension I10 [facility] [address] [id number] [address] [place] [address] 15 Jan, 2016 Chronic diarrhea K52.9 [facility] [address] [id number] [address] [place] [address] 13 Jan, 2016 [facility] [address] [facility] [id number] [address] [place] [address] Jan, Chronic diarrhea K52.9 [facility] [address] [id number] [address] [place] [address] Jan, [facility] [address] [id number] [address] [place] [address] 12 Jan, 2016 Dysuria R30.0 [facility] [address] [facility] [id number] [address] [place] [address] 07 Jan, 2016 Vitamin B12 deficiency E53.8 [facility] [address] [facility] [id number] [address] [place] [address] 07 Jan, 2016 Dysuria R30.0 and Iron defic iency anemia due to chronic blood loss D50.0 [facility] [address] [id number] [address] [place] [address] 05 Jan, 2016 Dysuria R30.0 [facility] [address] [facility] [id number] [address] [place] [address] 04 Jan, 2016 [facility] [address] [facility] [id number] [address] [place] [address] 15 Dec, 2015 [facility] [address] [facility] [id number] [address] [place] [address] 11 Dec, 2015 Iron deficiency anemia due t o chronic blood loss D50.0 [facility] [address] [facility] [id number] [address] [place] [address] 10 Dec, 2015 Dysuria R30.0 ; Fatigue R53. 83 ; Hyperlipidemia E78.5 and Diarrhea R19.7 [facility] [address] [facility] [id number] [address] [place] [address] Dec, [facility] [address] [facility] [id number] [address] [place] [address] Dec, [place] [address] [facility] [id number] [address] [place] [address] Nov, Vitamin B12 deficiency E53.8 [facility] [address] [facility] [id number] [address] [place] [address] Oct, Vitamin B12 deficiency E53.8 [facility] [address] [facility] [id number] [address] [place] [address] Oct, [facility] [address] [facility] [id number] [address] [place] [address] Oct, Headache R51 [facility] [address] [facility] [id number] [address] [place] [address] 07 Oct, 2015 Essential hypertension I10 ; Type 2 diabetes mellitus without complication E11.9 ; Vitamin B12 deficiency E53.8 ; Acquired hypothyroidism E03.9 ; Iron deficiency anemia due to chronic blood loss D50.0 and Hyperlipidemia E78.5 [facility] [address] [facility] [id number] [address] [place] [address] Sep, Essential hypertension I10 ; Vitamin B12 deficiency E53.8 ; Iron deficiency anemia due to chronic blood loss D50.0 ; Type 2 diabetes mellitus without complication E11.9 ; Hyperlipidemia E78.5 and Acquired hypothyroidism E03.9 [facility] [address] [facility] [id number] [address] [place] [id number] Sep, [facility] [address] [facility] [id number] [address] [place] [address] Sep, [facility] [address] [place] [id number] [address] [place] [address] Jul, [facility] [address] [facility] [id number] [address] [place] [address] Jun, [facility] [address] [facility] [id number] [place] [phone] Jun, [facility] [address] [facility] [id number] [address] [place] [id number] Jun, Hyperlipidemia 272.4 ; Iron deficiency anemia 280.9 ; Hypothyroidism 244.9 ; Diabetes mellitus without mention of complication, type II or unspecified type, not stated as uncontrolled 250.00 and Hypertension 401.9 [facility] [id number] [place] [address] Jun, [facility] [address] [place] [id number] [address] [place] [address] Jun, [facility] [address] [place] [id number] [address] [place] [address] May, Hyperlipidemia 272.4 [facility] [address] [place] [id number] [address] [place] [address] May, [facility] [address] [place] [id number] [address] [place] [id number] May, [facility] [address] [facility] [id number] [address] [place] [address] Apr, Diabetes mellitus without me ntion of complication, type II or unspecified type, not stated as uncontrolled 250.00 ; Hypothyroidism 244.9 ; Hyperlipidemia 272.4 ; Pain in joint, lower leg 719.46 and RUQ pain 789.01 [facility] [address] [place] [id number] [address] [place] [id number] Mar, Sinusitis 473.9 [facility] [address] [id number] [address] [place] [id number] Mar, [facility] [address] [id number] [address] [place] [id number] Mar, [facility] [address] [id number] [address] [place] [id number] Mar, Hematochezia 578.1 [facility] [address] [id number] [address] [place] [id number] February, Sinusitis 473.9 [facility] [address] [id number] [address] [place] [address], [place] [address] February, [facility] [address] [id number] [address] [place] [id number] 14 Jan, 2015 [facility] [address] [id number] [address] [place] [address] Jan, [facility] [address] [id number] [address] [place] [address] Dec, [facility] [address] [id number] [address] [place] [address] Dec, [facility] [address] [id number] [address] [place] [address] Dec, [facility] [address] [id number] [address] [place] [address] Dec, [facility] [address] [id number] [address] [place] [id number] 24 Dec, 2014 [facility] [address] [id number] [address] [place] [address] 24 Dec, 2014 [facility] [address] [id number] [address] [place] [address] 23 Dec, 2014 [facility] [address] [id number] [address] [place] [id number] 13 Dec, 2014 [facility] [address] [id number] [address] [place] [address] Dec, [facility] [address] [id number] [address] [place] [address], [place] [address] Dec, [facility] [address] [id number] [address] [place] [address], [place] [address] Dec, [facility] [address] [id number] [address] [place] [address], [place] [address] Nov, [facility] [address] [id number] [address] [place] [address], [place] [address] Nov, [facility] [address] [id number] [address] [place] [address], [place] [address] Nov, [facility] [address] [id number] [address] [place] [address], [place] [address] Nov, [facility] [address] [id number] [address] [place] [address], [place] [address] Oct, [facility] [address] [id number] [address] [place] [address], [place] [address] Oct, [facility] [address] [id number] [address] [place] [address], [place] [address] Oct, [facility] [address] [id number] [address] [place] [address], [place] [address] Oct, [facility] [address] [id number] [address] [place] [address], [place] [address] Oct, [facility] [address] [id number] [address] [place] [address], [place] [address] Oct, [facility] [address] [id number] [address] [place] [address], [place] [address] Sep, [facility] [address] [id number] [address] [place] [address], [place] [address] Sep, [facility] [address] [id number] [address] [place] [address], [place] [address] Sep, [facility] [address] [id number] [address] [place] [address], [place] [address] Sep, [facility] [address] [id number] [address] [place] [address], [place] [address] Sep, [facility] [address] [id number] [address] [place] [address], [place] [address] Sep, [facility] [address] [id number] [address] [place] [address], [place] [address] Sep, [facility] [address] [id number] [address] [place] [address], [place] [address] Aug, [facility] [address] [id number] [address] [place] [address], [place] [address] Aug, [facility] [address] [id number] [address] [place] [address], [place] [address] Aug, [facility] [address] [id number] [address] [place] [address], [place] [address] Aug, [facility] [address] [id number] [address] [place] [address], [place] [address] Aug, [facility] [address] [id number] [address] [place] [address], [place] [address] Aug, [facility] [address] [id number] [address] [place] [address], [place] [address] Aug, [facility] [address] [id number] [address] [place] [address], [place] [address] Aug, [facility] [address] [id number] [address] [place] [address], [place] [address] Aug, [facility] [address] [id number] [address] [place] [address], [place] [address] 17 Aug, 2014 [facility] [address] [id number] [address] [place] [address], [place] [address] 13 Aug, 2014 [facility] [address] [id number] [address] [place] [address], [place] [address] Aug, [facility] [address] [id number] [address] [place] [address], [place] [address] Aug, [facility] [address] [id number] [address] [place] [address], [place] [address] Aug, [facility] [address] [id number] [address] [place] [address], [place] [address] Jul, [facility] [address] [id number] [address] [place] [address], [place] [address] Jul, [facility] [address] [id number] [address] [place] [address], [place] [address] Jul, [facility] [address] [id number] [address] [place] [address], [place] [address] Jul, [facility] [address] [id number] [address] [place] [address], [place] [address] 24 Jun, 2014 [facility] [address] [id number] [address] [place] [address], [place] [address] 24 Jun, 2013 [facility] [address] [id number] [address] [place] [address], [place] [address] 23 Jun, 2013 [facility] [address] [id number] [address] [place] [address], [place] [address] 23 Jun, 2013 [facility] [address] [id number] [address] [place] [address], [place] [address] 19 Jun, 2013 [facility] [address] [id number] [address] [place] [address] 19 Jun, 2013 [facility] [address] [id number] [address] [place] [address], [place] [address] 11 Jun, 2013 [facility] [address] [id number] [address] [place] [address], [place] [address] 11 Jun, 2013 [facility] [address] [id number] [address] [place] [address], [place] [address] 11 Jun, 2013 [facility] [address] [id number] [facility] [place] [address] 11 Jun, 2014 [facility] [address] [id number] [facility] [place] [address] Jun, [facility] [address] [id number] [facility] [place] [address] Jun, [facility] [address] [id number] [address] [place] [address], [place] [address] Jun, [facility] [address] [id number] [address] [place] [address], [place] [address] Jun, [facility] [address] [id number] [address] [place] [address], [place] [address] May, [facility] [address] [id number] [address] [place] [address], [place] [address] May, [facility] [address] [id number] [address] [place] [address], [place] [address] May, [facility] [address] [id number] [address] [place] [address], [place] [address] May, [facility] [address] [id number] [address] [place] [address], [place] [address] May, [facility] [address] [id number] [address] [place] [address], [place] [address] May, [facility] [address] [id number] [address] [place] [address], [place] [address] Apr, [facility] [address] [id number] [address] [place] [address], [place] [address] Apr, [facility] [address] [id number] [address] [place] [address], [place] [address] Apr, [facility] [address] [id number] [address] [place] [address], [place] [address] Apr, [facility] [address] [id number] [address] [place] [address], [place] [address] Apr, [facility] [address] [id number] [address] [place] [address], [place] [address] Apr, [facility] [address] [id number] [address] [place] [address], [place] [address] Apr, [facility] [address] [id number] [address] [place] [address], [place] [address] Apr, [facility] [address] [id number] [address] [place] [address], [place] [address] Apr, [facility] [address] [id number] [address] [place] [address], [place] [address] Apr, [facility] [address] [id number] [address] [place] [address], [place] [address] Apr, [facility] [address] [id number] [address] [place] [address], [place] [address] Mar, [facility] [address] [id number] [address] [place] [address], [place] [address] Mar, [facility] [address] [id number] [address] [place] [address], [place] [address] Mar, [facility] [address] [id number] [address] [place] [address], [place] [address] Mar, [facility] [address] [id number] [address] [place] [address], [place] [address] February, [facility] [address] [id number] [address] [place] [address], [place] [address] February, [facility] [address] [id number] [address] [place] [address], [place] [address] Jan, [facility] [address] [id number] [address] [place] [address], [place] [address] Jan, [facility] [address] [place] [id number] Jan, [facility] [address] [id number] [address] [place] [address], [place] [address] Jan, [facility] [address] [id number] [facility] [place] [address] Jan, [facility] [address] [id number] [facility] [place] [address] Jan, [facility] [address] [id number] [address] [place] [address], [place] [address] Jan, [facility] [address] [id number] [address] [place] [address], [place] [address] Jan, [facility] [address] [id number] [address] [place] [address], [place] [address] Jan, [facility] [address] [id number] [address] [place] [address], [place] [address] Jan, [facility] [address] [id number] [address] [place] [address], [place] [address] Jan, [facility] [address] [id number] [address] [place] [address], [place] [address] Jan, [facility] [address] [id number] [address] [place] [address], [place] [address] Jan, [facility] [address] [id number] [address] [place] [address], [place] [address] Jan, [facility] [address] [id number] [address] [place] [address], [place] [address] Jan, [facility] [address] [id number] [address] [place] [address], [place] [address] Jan, [facility] [address] [id number] [address] [place] [address], [place] [address] Jan, [facility] [address] [id number] [address] [place] [address], [place] [address] Dec, [facility] [address] [id number] [address] [place] [address], [place] [address] Dec, [facility] [address] [id number] [address] [place] [address], [place] [address] Dec, [facility] [address] [id number] [address] [place] [address], [place] [address] Dec, [facility] [address] [id number] [address] [place] [address], [place] [address] Dec, [facility] [address] [id number] [address] [place] [address], [place] [address] Dec, [facility] [address] [id number] [address] [place] [address], [place] [address] Dec, [facility] [address] [id number] [address] [place] [address], [place] [address] Nov, [facility] [address] [id number] [address] [place] [address], [place] [address] Nov, [facility] [address] [id number] [address] [place] [address], [place] [address] Nov, [facility] [address] [id number] [address] [place] [address], [place] [address] Nov, [facility] [address] [id number] [address] [place] [address], [place] [address] Nov, [facility] [address] [id number] [address] [place] [address], [place] [address] Nov, [facility] [address] [id number] [address] [place] [address], [place] [address] Nov, [facility] [address] [id number] [address] [place] [address], [place] [address] Oct, [facility] [address] [id number] [address] [place] [address], [place] [address] Oct, [facility] [address] [id number] [address] [place] [address], [place] [address] Sep, [facility] [address] [id number] [address] [place] [address], [place] [address] Sep, [facility] [address] [id number] [address] [place] [address], [place] [address] Sep, [facility] [address] [id number] [address] [place] [address], [place] [address] Sep, [facility] [address] [id number] [address] [place] [address], [place] [address] Sep, [facility] [address] [id number] [address] [place] [address], [place] [address] Sep, [facility] [address] [id number] [address] [place] [address], [place] [address] Sep, [facility] [address] [id number] [address] [place] [address], [place] [address] Sep, [facility] [address] [id number] [address] [place] [address], [place] [address] Sep, [facility] [address] [id number] [address] [place] [address], [place] [address] Sep, [facility] [address] [id number] [address] [place] [address], [place] [address] Aug, [facility] [address] [id number] [address] [place] [address] Aug, [facility] [address] [id number] [address] [place] [address] Aug, [facility] [address] [id number] [address] [place] [address] Aug, [facility] [address] [id number] [address] [place] [address], [place] [address] Aug, [facility] [address] [id number] [address] [place] [address] Jul, [facility] [address] [id number] [address] [place] [address], [place] [address] Jul, [facility] [address] [id number] [address] [place] [address] Jul, [facility] [address] [facility] [id number] [address] [place] [address] Jul, IMMUNIZATIONS No Known Immunizations SOCIAL HISTORY [...]
--- OUTSIDE RECORDS SUMMARY | 2020-03-16 11:58 | XMS REPORT ---
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 Wafer Fabricator Name Role Phone WIL Benavides Unavailable PROBLEMS Type Condition ICD9-CM Code [id number] Code Onset Dates Condition S tatus SNOMED Code Problem Sensorineural hearing loss of right ear H90.41 Active 78820552 Problem Obstructive sleep apnea on CPAP G47.33 Active 24696421 Problem Periodic limb movement sleep disorder G47.61 Active 996715315 Problem Iron deficiency anemia due to chronic blood loss D 50.0 Active 63591363 Problem MACHUCA (nonalcoholic steatohepatitis) K75.81 Active 066494325 Problem Vitamin B12 deficiency E53.8 Active 215864167 Problem Chronic diarrhea K52.9 Active 236 580130 Problem Vitamin D deficiency E55.9 Active 94412036 Problem BMI 50.0-59.9, adult Z68.43 Active 554564696 Problem Fatty liver K76.0 Active 28038150 7 Problem Anxiety F41.9 Active 36216583 Problem Major depressive disorder, recurrent episode, moderate F33.1 Active 091901810 Problem Chronic tension-type headache, intractable G44.221 Active 996039246 Problem Right upper quadrant pain R10.11 Acti ve 15875017 Problem Frequent falls R29.6 Active 28457 2002 Problem Crohn's disease of both small and large intestin e with complication K50.819 Active 63212152 Problem Type 2 diabetes mellitus with other specified complication E11.69 Active 116614058255 Problem Hyperlipidemia, unspecified E78.5 Ac tive 31166143 Problem Mixed stress and urge urinary incontinence N39.46 Active 448599181 Problem Sinusitis chronic, frontal J32.1 Act katlyn 15516547 Problem Seasonal allergies J30.2 Active 4 76493988 Problem Other chronic pain G89.29 Active 8 3491430 Problem Hyperlipidemia E78.5 Active 26903 004 Problem Bilateral primary osteoarthritis of knee M17.0 Active 451044874 Problem Essential hypertension I10 Active 94670875 Problem Acquired hypothyroidism E03.9 Active 152444103 Problem History of hysterectomy for benign disease Z90.710 Active 840322168 Problem Morbid (severe) obesity due to excess calories E66 .01 Active 838151860 Problem Other cirrhosis of liver K74.69 Activ e 22827242 Problem Portal hypertension K76.6 Active 03866907 ALLERGIES No Information ENCOUNTERS Encounter Location Date Diagnosis [place] [address] [address] [facility] [id number] [address] [place] [phone] February, [facility] WALK IN [facility] [address] [facility] [place] [address] February, Acute recurrent pansinusitis J01.41 [facility] IN [facility] [address] [facility] [address] February, Acute maxillary sinusitis, recurrence no t specified J01.00 [place] [address] [place] [id number] [place] [address] Jan, Bilateral primary osteoarthr itis of knee M17.0 ; Morbid obesity E66.01 ; Viral syndrome B34.9 and Atrial dilatation, left I51.7 [place] [address] [place] [id number] [place] [address] Jan, [place] [address] [place] [id number] [place] [address] Dec, Trigeminy R00.8 [place] [address] [place] [id number] [place] [address] Dec, Essential hypertension I10 ; Morbid obesity E66.01 ; Low back pain M54.5 ; Other chronic pain G89.29 and Pain in right knee M25.561 [place] [address] [place] [id number] [address] [place] [address] Nov, [place] [place] [id number] [place] [address] Oct, Palpitations R00.2 [place] [id number] [place] [address] 30 Oct, 2018 Encounter for Medicare felipe [...] small and large intestine with complication K50.[address] [address] Oct, [place] [address] [address] 02 Oct, 2018 Crohn's disease of both smal l and large intestine with complication K50.819 [facility] [place] [id number] [place] [address] Jul, Sinusitis chronic, frontal J 32.1 ; Acute mucoid otitis media of both ears H65.113 ; Seasonal allergies J30.2 and BMI 50.0-59.9, adult Z68.43 [place] [id number] [place] [address] Jul, Essential hypertension I10 ; Type 2 diabetes mellitus with other specified complication E11.69 ; BMI 50.0-59.9, adult Z68.43 ; Mixed stress and urge urinary incontinence N39.46 and Mid back pain on right side M54.[address] [address] Jun, Iron deficiency anemia due t o chronic blood loss D50.0 ; Hyperlipidemia E78.5 ; Type 2 diabetes mellitus with other specified complication E11.69 ; Vitamin B12 deficiency E53.8 and Vitamin D deficiency E55.9 [facility] [address] [place] [address] 14 Jun, 2018 Cough R05 and BMI 50.0-59.9, adult Z68.43 [place] [address] [address] Jun, [place] [address] [address] May, Iron deficiency anemia due t o chronic blood loss D50.0 ; Chronic diarrhea K52.9 ; Essential hypertension I10 ; Type 2 diabetes mellitus with other specified complication E11.69 ; Vitamin D deficiency E55.9 ; Colon stricture K56.699 ; Vitamin B12 deficiency E53.8 ; Hyperlipidemia E78.5 and BMI 50.0-59.9, adult Z68.43 [place] [address] [address] May, [place] [address] [address] Apr, Nonhealing wound of heel S91 .309A and Body mass index (BMI) of 50- 59.9 in adult Z68.43 [place] [address] [address] Mar, [place] [address] [address] Mar, BMI 50.0-59.9, adult Z68.43 ; Flank pain R10.9 and Weight loss counseling, encounter for Z71.3 [place] [address] [place] [id number] [place] [address] February, [place] [address] [address] Jan, [place] [address] [place] [id number] [place] [address] Jan, [facility] [address] [place] [id number] [place] [address] Jan, Diarrhea due to staphylococc us A04.8 and Diarrhea, unspecified type R19.7 [place] [address] [address] Jan, Acquired hypothyroidism E03. 9 ; Type 2 diabetes mellitus with other specified complication E11.69 ; Hyperlipidemia E78.5 ; Essential hypertension I10 ; Major depressive disorder, recurrent episode, moderate F33.1 and Vitamin D deficiency E55.9 [place] [address] [address] Jan, Type 2 diabetes mellitus wit h other specified complication E11.69 ; Hyperlipidemia E78.5 ; Essential hypertension I10 ; Acquired hypothyroidism E03.9 ; Major depressive disorder, recurrent episode, moderate F33.1 ; Vitamin D deficiency E55.9 ; Sinus congestion R09.81 and BMI 50.0-59.9, adult Z68.43 [place] [address] [address] Dec, [place] [address] [address] Sep, Encounter for immunization Z 23 [place] [address] [address] Sep, [place] [address] [address] Sep, Vitamin B12 deficiency E53.8 [place] [address] [address] Aug, [place] [address] [address] Aug, BMI 60.0-69.9, adult Z68.44 and Acute non-recurrent maxillary sinusitis J01.00 [place] [address] [address] Aug, [place] [address] [address] Aug, Medicare annual wellness vis it, initial Z00.00 ; Screening for breast cancer Z12.31 ; BMI 40.0-44.9, adult Z68.41 and Acquired hypothyroidism E03.9 [place] [address] [facility] [id number] [address] [place] [address] Jul, Actinic keratosis L57.0 [place] [address] [place] [id number] [place] [address] Jul, Actinic keratosis L57.0 [place] [address] [facility] [id number] [address] [place] [address] Jul, Type 2 diabetes mellitus wit h other specified complication E11.69 ; Actinic keratosis L57.0 and Hypothyroidism, unspecified E03.9 [place] [address] [place] [address] Jul, [place] [address] [address] Jul, [place] [address] [place] [id number] [place] [address] Jul, Vitamin B12 deficiency E53.8 [place] [address] [place] [address] Jun, Acquired hypothyroidism E03. 9 and Chronic tension-type headache, intractable G44.221 [place] [address] [place] [address] Jun, Back muscle spasm M62.830 an d BMI 50.0-59.9, adult Z68.43 [place] [address] [place] [id number] [place] [address] Jun, Vitamin B12 deficiency E53.8 [place] [address] [place] [id number] [place] [address] 05 Jun, 2017 Crohn's disease of both smal l and large intestine with complication K50.819 [place] [address] [address] Jun, Crohn's disease of both smal l and large intestine with complication K50.819 [place] [address] [address] May, Hyperlipidemia E78.5 ; Anxie ty F41.9 and Essential hypertension I10 [place] [address] [address] May, [place] [address] [address] May, Encounter for immunization Z 23 and Vitamin B12 deficiency E53.8 [place] [address] [address] May, [place] [address] [address] Apr, [place] [address] [address] Apr, [place] [address] [address] Apr, Crohn's disease of both smal l and large intestine with complication K50.819 [place] [address] [address] Apr, Vitamin B12 deficiency E53.8 [place] [address] [address] Apr, Crohn's disease of both smal l and large intestine with complication K50.819 and Acute pain of right shoulder M25.511 [place] [address] [address] Mar, Type 2 diabetes mellitus wit hout complication E11.9 ; Frequent falls R29.6 and Other chest pain R07.89 [place] [address] [address] Mar, [place] [address] [id number] [address] [place] [address] Mar, [facility] [place] [address] [facility] [id number] [address] [place] [address] Mar, Type 2 diabetes mellitus wit hout complication E11.9 and Blurry vision, bilateral H53.8 [place] [address] [id number] [address] [place] [address] Mar, Vitamin B12 deficiency E53.8 [facility] [place] [address] [id number] [address] [place] [address] Mar, Crohn's disease of both smal l and large intestine with complication K50.819 [place] [address] [facility] [id number] [address] [place] [address] February, Vitamin B12 deficiency E53.8 [place] [address] [facility] [id number] [address] [place] [address] Jan, Crohn's disease of both smal l and large intestine with complication K50.819 [place] [address] [id number] [address] [place] [address] Jan, Crohn's disease of both smal l and large intestine with complication K50.819 [facility] WALK IN [facility] [address] [facility] [id number] [address] [place] [address] Jan, Dark brown-colored urine R82 .99 and Acute suppurative otitis media of right ear without spontaneous rupture of tympanic membrane, recurrence not specified H66.001 [place] [address] [facility] [id number] [address] [place] [address] Jan, Encounter for immunization Z 23 [place] [address] [facility] [id number] [address] [place] [address] Dec, Crohn's disease of both smal l and large intestine with complication K50.819 and Eustachian tube dysfunction, right H69.81 [facility] [place] [address] [place] [address] [address] Dec, [place] [address] [address] Dec, Contusion of right knee, ini tial encounter S80.01XA [place] [address] [address] Dec, [place] [address] [address] Dec, Acute pain of right knee M25 .[address] [address] Dec, Iron deficiency anemia due t o chronic blood loss D50.[address] [address] Dec, Hyperlipidemia E78.5 ; Type 2 diabetes mellitus without complication E11.9 ; Vitamin B12 deficiency E53.8 ; Essential hypertension I10 ; Obstructive sleep apnea on CPAP G47.33 and Periodic limb movement sleep disorder G47.[address] [address] Nov, Type 2 diabetes mellitus wit hout complication E11.9 ; Vitamin B12 deficiency E53.8 ; Hyperlipidemia E78.5 ; Essential hypertension I10 ; Obstructive sleep apnea on CPAP G47.33 ; Periodic limb movement sleep disorder G47.61 ; Anxiety F41.9 ; Acquired hypothyroidism E03.9 and Chronic tension-type headache, intractable G44.221 [place] [address] [address] Nov, Crohn's disease of both smal l and large intestine with complication K50.[address] [address] Nov, Vitamin B12 deficiency E53.[address] [address] Oct, [place] [address] [id number] [address] [place] [address] Oct, Vitamin B12 deficiency E53.8 [facility] [place] [address] [id number] [address] [place] [address] Sep, [facility] [place] [address] [id number] [address] [place] [address] Sep, Vitamin B12 deficiency E53.8 [facility] [place] [address] [id number] [address] [place] [address] Aug, [facility] [place] [address] [id number] [address] [place] [address] Aug, Vitamin B12 deficiency E53.8 [facility] [place] [address] [id number] [address] [place] [address] Aug, [facility] [place] [address] [id number] [address] [place] [address] Jul, Elevated ALT measurement R74 .0 [facility] [place] [address] [id number] [address] [place] [address] Jul, Hematuria R31.9 ; Acute righ t-sided thoracic back pain M54.6 ; Major depressive disorder, recurrent episode, moderate F33.1 and Elevated ALT measurement R74.0 [facility] [place] [address] [id number] [address] [place] [address] Jul, [facility] [place] [address] [id number] [address] [place] [address] Jul, Elevated ALT measurement R74 .0 [facility] [place] [address] [id number] [address] [place] [address] 14 Jul, 2016 Iron deficiency anemia due t o chronic blood loss D50.0 [facility] [place] [address] [id number] [address] [place] [address] 14 Jul, 2016 Type 2 diabetes mellitus wit hout complication E11.9 ; Acquired hypothyroidism E03.9 ; Iron deficiency anemia due to chronic blood loss D50.0 ; Hyperlipidemia E78.5 and Essential hypertension I10 [facility] [place] [address] [id number] [address] [place] [address] 26 Jun, 2016 [facility] [place] [address] [facility] [id number] [address] [place] [address] 20 Jun, 2016 Vitamin B12 deficiency E53.8 [facility] [place] [address] [facility] [id number] [address] [place] [address] 16 Jun, 2016 Type 2 diabetes mellitus wit hout complication E11.9 ; Acquired hypothyroidism E03.9 ; Iron deficiency anemia due to chronic blood loss D50.0 ; Hyperlipidemia E78.5 ; Essential hypertension I10 ; Chronic tension-type headache, intractable G44.221 ; Pulsatile tinnitus, bilateral H93.13 ; Obstructive sleep apnea on CPAP G47.33 and Major depressive disorder, recurrent episode, moderate F33.1 [place] [address] [facility] [id number] [address] [place] [address] May, Vitamin B12 deficiency E53.8 [place] [address] [facility] [id number] [address] [place] [address] May, [place] [address] [facility] [id number] [address] [place] [address] Apr, Vitamin B12 deficiency E53.8 [place] [address] [facility] [id number] [address] [place] [address] Apr, [place] [address] [facility] [id number] [address] [place] [address] Mar, Chronic tension-type headach e, intractable G44.221 and Major depressive disorder, recurrent episode, moderate F33.1 [place] [address] [facility] [id number] [address] [place] [address] 14 Mar, 2016 Vitamin B12 deficiency E53.8 [facility] [place] [address] [facility] [id number] [address] [place] [address] February, [facility] [place] [address] [facility] [id number] [address] [place] [address] February, Vitamin B12 deficiency E53.8 [facility] [place] [address] [id number] [address] [place] [address] February, [facility] [place] [address] [id number] [address] [place] [address] 27 Jan, 2016 Dysuria R30.0 [facility] [place] [address] [facility] [id number] [address] [place] [address] Jan, Type 2 diabetes mellitus wit hout complication E11.9 and Essential hypertension I10 [facility] [place] [address] [id number] [address] [place] [address] 15 Jan, 2016 Chronic diarrhea K52.9 [facility] [place] [address] [id number] [address] [place] [address] 13 Jan, 2016 [facility] [place] [address] [facility] [id number] [address] [place] [address] Jan, Chronic diarrhea K52.9 [facility] [place] [address] [id number] [address] [place] [address] Jan, [facility] [place] [address] [id number] [address] [place] [address] 12 Jan, 2016 Dysuria R30.0 [facility] [place] [address] [facility] [id number] [address] [place] [address] 07 Jan, 2016 Vitamin B12 deficiency E53.8 [facility] [place] [address] [facility] [id number] [address] [place] [address] 07 Jan, 2016 Dysuria R30.0 and Iron defic iency anemia due to chronic blood loss D50.0 [facility] [place] [address] [id number] [address] [place] [address] 05 Jan, 2016 Dysuria R30.0 [facility] [place] [address] [facility] [id number] [address] [place] [address] 04 Jan, 2016 [facility] [place] [address] [facility] [id number] [address] [place] [address] 15 Dec, 2015 [facility] [place] [address] [facility] [id number] [address] [place] [address] 11 Dec, 2015 Iron deficiency anemia due t o chronic blood loss D50.0 [facility] [place] [address] [facility] [id number] [address] [place] [address] 10 Dec, 2015 Dysuria R30.0 ; Fatigue R53. 83 ; Hyperlipidemia E78.5 and Diarrhea R19.7 [facility] [place] [address] [facility] [id number] [address] [place] [address] Dec, [facility] [place] [address] [facility] [id number] [address] [place] [address] Dec, [place] [address] [facility] [id number] [address] [place] [address] Nov, Vitamin B12 deficiency E53.8 [facility] [place] [address] [facility] [id number] [address] [place] [address] Oct, Vitamin B12 deficiency E53.8 [facility] [place] [address] [facility] [id number] [address] [place] [address] Oct, [facility] [address] [facility] [id number] [address] [place] [address] Oct, Headache R51 [facility] [place] [address] [facility] [id number] [address] [place] [address] 07 Oct, 2015 Essential hypertension I10 ; Type 2 diabetes mellitus without complication E11.9 ; Vitamin B12 deficiency E53.8 ; Acquired hypothyroidism E03.9 ; Iron deficiency anemia due to chronic blood loss D50.0 and Hyperlipidemia E78.5 [facility] [place] [address] [facility] [id number] [address] [place] [address] Sep, Essential hypertension I10 ; Vitamin B12 deficiency E53.8 ; Iron deficiency anemia due to chronic blood loss D50.0 ; Type 2 diabetes mellitus without complication E11.9 ; Hyperlipidemia E78.5 and Acquired hypothyroidism E03.9 [facility] [place] [address] [facility] [id number] [address] [place] [address] Sep, [facility] [place] [address] [facility] [id number] [address] [place] [id number] Sep, [facility] [place] [address] [place] [id number] [address] [place] [phone] Jul, [facility] [place] [address] [facility] [id number] [address] [place] [phone] Jun, [facility] [place] [address] [facility] [id number] [place] [phone] Jun, [facility] [place] [address] [facility] [id number] [address] [place] [phone] Jun, Hyperlipidemia 272.4 ; Iron deficiency anemia 280.9 ; Hypothyroidism 244.9 ; Diabetes mellitus without mention of complication, type II or unspecified type, not stated as uncontrolled 250.00 and Hypertension 401.9 [facility] [place] [id number] [place] [phone] Jun, [facility] [place] [address] [id number] [address] [place] [address] Jun, [facility] [place] [address] [id number] [address] [place] [address] May, Hyperlipidemia 272.4 [facility] [place] [address] [id number] [address] [place] [address] May, [facility] [place] [address] [id number] [address] [place] [address] May, [facility] [place] [address] [facility] [id number] [address] [place] [address] Apr, Diabetes mellitus without me ntion of complication, type II or unspecified type, not stated as uncontrolled 250.00 ; Hypothyroidism 244.9 ; Hyperlipidemia 272.4 ; Pain in joint, lower leg 719.46 and RUQ pain 789.01 [facility] [place] [address] [id number] [address] [place] [address] Mar, Sinusitis 473.9 [facility] [address] [id number] [address] [place] [address] Mar, [facility] [address] [id number] [address] [place] [address] Mar, [facility] [address] [id number] [address] [place] [address] Mar, Hematochezia 578.1 [facility] [address] [id number] [address] [place] [address] February, Sinusitis 473.9 [facility] [address] [id number] [address] [place] [address], [place] [address] February, [facility] [address] [id number] [address] [place] [id number] 14 Jan, 2015 [facility] [address] [id number] [address] [place] [address] Jan, [facility] [address] [id number] [address] [place] [address] Dec, [facility] [address] [id number] [address] [place] [address] Dec, [facility] [address] [id number] [address] [place] [address] Dec, [facility] [address] [id number] [address] [place] [address] Dec, [facility] [address] [id number] [address] [place] [address] 24 Dec, 2014 [facility] [address] [id number] [address] [place] [address] 24 Dec, 2014 [facility] [address] [id number] [address] [place] [id number] 23 Dec, 2014 [facility] [address] [id number] [address] [place] [id number] 13 Dec, 2014 [facility] [address] [id number] [address] [place] [address] Dec, [facility] [address] [id number] [address] [place] [address], [place] [address] Dec, [facility] [address] [id number] [address] [place] [address], [place] [address] Dec, [facility] [address] [id number] [address] [place] [address], [place] [address] Nov, [facility] [address] [id number] [address] [place] [address], [place] [address] Nov, [facility] [address] [id number] [address] [place] [address], [place] [address] Nov, [facility] [address] [id number] [address] [place] [address], [place] [address] Nov, [facility] [address] [id number] [address] [place] [address], [place] [address] Oct, [facility] [address] [id number] [address] [place] [address], [place] [address] Oct, [facility] [address] [id number] [address] [place] [address], [place] [address] Oct, [facility] [address] [id number] [address] [place] [address], [place] [address] Oct, [facility] [address] [id number] [address] [place] [address], [place] [address] Oct, [facility] [address] [id number] [address] [place] [address], [place] [address] Oct, [facility] [address] [id number] [address] [place] [address], [place] [address] Sep, [facility] [address] [id number] [address] [place] [address], [place] [address] Sep, [facility] [address] [id number] [address] [place] [address], [place] [address] Sep, [facility] [address] [id number] [address] [place] [address], [place] [address] Sep, [facility] [address] [id number] [address] [place] [address], [place] [address] Sep, [facility] [address] [id number] [address] [place] [address], [place] [address] Sep, [facility] [address] [id number] [address] [place] [address], [place] [address] Sep, [facility] [address] [id number] [address] [place] [address], [place] [address] Aug, [facility] [address] [id number] [address] [place] [address], [place] [address] Aug, [facility] [address] [id number] [address] [place] [address], [place] [address] Aug, [facility] [address] [id number] [address] [place] [address], [place] [address] Aug, [facility] [address] [id number] [address] [place] [address], [place] [address] Aug, [facility] [address] [id number] [address] [place] [address], [place] [address] Aug, [facility] [address] [id number] [address] [place] [address], [place] [address] Aug, [facility] [address] [id number] [address] [place] [address], [place] [address] Aug, [facility] [address] [id number] [address] [place] [address], [place] [address] Aug, [facility] [address] [id number] [address] [place] [address], [place] [address] 17 Aug, 2014 [facility] [address] [id number] [address] [place] [address], [place] [address] 13 Aug, 2014 [facility] [address] [id number] [address] [place] [address], [place] [address] Aug, [facility] [address] [id number] [address] [place] [address], [place] [address] Aug, [facility] [address] [id number] [address] [place] [address], [place] [address] Aug, [facility] [address] [id number] [address] [place] [address], [place] [address] Jul, [facility] [address] [id number] [address] [place] [address], [place] [address] Jul, [facility] [address] [id number] [address] [place] [address], [place] [address] Jul, [facility] [address] [id number] [address] [place] [address], [place] [address] Jul, [facility] [address] [id number] [address] [place] [address], [place] [address] 24 Jun, 2014 [facility] [address] [id number] [address] [place] [address], [place] [address] 24 Jun, 2013 [facility] [address] [id number] [address] [place] [address], [place] [address] 23 Jun, 2013 [facility] [address] [id number] [address] [place] [address], [place] [address] 23 Jun, 2013 [facility] [address] [id number] [address] [place] [address], [place] [address] 19 Jun, 2013 [facility] [address] [id number] [address] [place] [address] 19 Jun, 2013 [facility] [address] [id number] [address] [place] [address], [place] [address] 11 Jun, 2013 [facility] [address] [id number] [address] [place] [address], [place] [address] 11 Jun, 2013 [facility] [address] [id number] [address] [place] [address], [place] [address] 11 Jun, 2013 [facility] [address] [id number] [facility] [place] [address] 11 Jun, 2014 [facility] [address] [id number] [facility] [place] [address] Jun, [facility] [address] [id number] [facility] [place] [address] Jun, [facility] [address] [id number] [address] [place] [address], [place] [address] Jun, [facility] [address] [id number] [address] [place] [address], [place] [address] Jun, [facility] [address] [id number] [address] [place] [address], [place] [address] May, [facility] [address] [id number] [address] [place] [address], [place] [address] May, [facility] [address] [id number] [address] [place] [address], [place] [address] May, [facility] [address] [id number] [address] [place] [address], [place] [address] May, [facility] [address] [id number] [address] [place] [address], [place] [address] May, [facility] [address] [id number] [address] [place] [address], [place] [address] May, [facility] [address] [id number] [address] [place] [address], [place] [address] Apr, [facility] [address] [id number] [address] [place] [address], [place] [address] Apr, [facility] [address] [id number] [address] [place] [address], [place] [address] Apr, [facility] [address] [id number] [address] [place] [address], [place] [address] Apr, [facility] [address] [id number] [address] [place] [address], [place] [address] Apr, [facility] [address] [id number] [address] [place] [address], [place] [address] Apr, [facility] [address] [id number] [address] [place] [address], [place] [address] Apr, [facility] [address] [id number] [address] [place] [address], [place] [address] Apr, [facility] [address] [id number] [address] [place] [address], [place] [address] Apr, [facility] [address] [id number] [address] [place] [address], [place] [address] Apr, [facility] [address] [id number] [address] [place] [address], [place] [address] Apr, [facility] [address] [id number] [address] [place] [address], [place] [address] Mar, [facility] [address] [id number] [address] [place] [address], [place] [address] Mar, [facility] [address] [id number] [address] [place] [address], [place] [address] Mar, [facility] [address] [id number] [address] [place] [address], [place] [address] Mar, [facility] [address] [id number] [address] [place] [address], [place] [address] February, [facility] [address] [id number] [address] [place] [address], [place] [address] February, [facility] [address] [id number] [address] [place] [address], [place] [address] Jan, [facility] [address] [id number] [address] [place] [address], [place] [address] Jan, [facility] [address] [place] [id number] Jan, [facility] [address] [id number] [address] [place] [address], [place] [address] Jan, [facility] [address] [id number] [facility] [place] [address] Jan, [facility] [address] [id number] [facility] [place] [address] Jan, [facility] [address] [id number] [address] [place] [address], [place] [address] Jan, [facility] [address] [id number] [address] [place] [address], [place] [address] Jan, [facility] [address] [id number] [address] [place] [address], [place] [address] Jan, [facility] [address] [id number] [address] [place] [address], [place] [address] Jan, [facility] [address] [id number] [address] [place] [address], [place] [address] Jan, [facility] [address] [id number] [address] [place] [address], [place] [address] Jan, [facility] [address] [id number] [address] [place] [address], [place] [address] Jan, [facility] [address] [id number] [address] [place] [address], [place] [address] Jan, [facility] [address] [id number] [address] [place] [address], [place] [address] Jan, [facility] [address] [id number] [address] [place] [address], [place] [address] Jan, [facility] [address] [id number] [address] [place] [address], [place] [address] Jan, [facility] [address] [id number] [address] [place] [address], [place] [address] Dec, [facility] [address] [id number] [address] [place] [address], [place] [address] Dec, [facility] [address] [id number] [address] [place] [address], [place] [address] Dec, [facility] [address] [id number] [address] [place] [address], [place] [address] Dec, [facility] [address] [id number] [address] [place] [address], [place] [address] Dec, [facility] [address] [id number] [address] [place] [address], [place] [address] Dec, [facility] [address] [id number] [address] [place] [address], [place] [address] Dec, [facility] [address] [id number] [address] [place] [address], [place] [address] Nov, [facility] [address] [id number] [address] [place] [address], [place] [address] Nov, [facility] [address] [id number] [address] [place] [address], [place] [address] Nov, [facility] [address] [id number] [address] [place] [address], [place] [address] Nov, [facility] [address] [id number] [address] [place] [address], [place] [address] Nov, [facility] [address] [id number] [address] [place] [address], [place] [address] Nov, [facility] [address] [id number] [address] [place] [address], [place] [address] Nov, [facility] [address] [id number] [address] [place] [address], [place] [address] Oct, [facility] [address] [id number] [address] [place] [address], [place] [address] Oct, [facility] [address] [id number] [address] [place] [address], [place] [address] Sep, [facility] [address] [id number] [address] [place] [address], [place] [address] Sep, [facility] [address] [id number] [address] [place] [address], [place] [address] Sep, [facility] [address] [id number] [address] [place] [address], [place] [address] Sep, [facility] [address] [id number] [address] [place] [address], [place] [address] Sep, [facility] [address] [id number] [address] [place] [address], [place] [address] Sep, [facility] [address] [id number] [address] [place] [address], [place] [address] Sep, [facility] [address] [id number] [address] [place] [address], [place] [address] Sep, [facility] [address] [id number] [address] [place] [address], [place] [address] Sep, [facility] [address] [id number] [address] [place] [address], [place] [address] Sep, [facility] [address] [id number] [address] [place] [address], [place] [address] Aug, [facility] [address] [id number] [address] [place] [address] Aug, [facility] [address] [id number] [address] [place] [address] Aug, [facility] [address] [id number] [address] [place] [address] Aug, [facility] [address] [id number] [address] [place] [address], [place] [address] Aug, [facility] [address] [id number] [address] [place] [address] Jul, [facility] [address] [id number] [address] [place] [address], [place] [address] Jul, [facility] [address] [id number] [address] [place] [address] Jul, [facility] [place] [address] [facility] [id number] [address] [place] [address] Jul, IMMUNIZATIONS No Known Immunizations SOCIAL HISTORY [...]
--- OUTSIDE RECORDS SUMMARY | 2020-03-16 11:59 | XMS REPORT ---
Author Author Swathi Benavides Organization [facility] [place] Address [address] [place] [address] Care Team Providers Care Eligibility Analyst Name Role Phone WIL Benavides Unavailable PROBLEMS Type Condition ICD9-CM Code ZHN27-AQ Code Onset Dates Condition S tatus SNOMED Code Problem Sensorineural hearing loss of right ear H90.41 Active 75370628 Problem Obstructive sleep apnea on CPAP G47.33 Active 63430753 Problem Periodic limb movement sleep disorder G47.61 Active 108767914 Problem Iron deficiency anemia due to chronic blood loss D 50.0 Active 06534276 Problem MACHUCA (nonalcoholic steatohepatitis) K75.81 Active 483683584 Problem Vitamin B12 deficiency E53.8 Active 884874196 Problem Chronic diarrhea K52.9 Active 236 380022 Problem Vitamin D deficiency E55.9 Active 18087045 Problem BMI 50.0-59.9, adult Z68.43 Active 125823921 Problem Fatty liver K76.0 Active 78329063 7 Problem Anxiety F41.9 Active 54628677 Problem Major depressive disorder, recurrent episode, moderate F33.1 Active 661930482 Problem Chronic tension-type headache, intractable G44.221 Active 641008043 Problem Right upper quadrant pain R10.11 Acti ve 63535523 Problem Frequent falls R29.6 Active 36242 2002 Problem Crohn's disease of both small and large intestin e with complication K50.819 Active 31467624 Problem Type 2 diabetes mellitus with other specified complication E11.69 Active 349712716897 Problem Hyperlipidemia, unspecified E78.5 Ac tive 63016213 Problem Mixed stress and urge urinary incontinence N39.46 Active 623235546 Problem Sinusitis chronic, frontal J32.1 Act katlyn 10994717 Problem Seasonal allergies J30.2 Active 4 61355767 Problem Other chronic pain G89.29 Active 8 6351742 Problem Hyperlipidemia E78.5 Active 04642 004 Problem Bilateral primary osteoarthritis of knee M17.0 Active 279275390 Problem Essential hypertension I10 Active 12906107 Problem Acquired hypothyroidism E03.9 Active 791351723 Problem History of hysterectomy for benign disease Z90.710 Active 826438528 Problem Morbid (severe) obesity due to excess calories E66 .01 Active 092172686 Problem Other cirrhosis of liver K74.69 Activ e 06305969 Problem Portal hypertension K76.6 Active 74071792 ALLERGIES No Information ENCOUNTERS Encounter Location Date Diagnosis [place] [address] [address] [facility] [id number] [address] [place] [phone] February, [facility] [address] [facility] [place] [place] [address] February, Acute recurrent pansinusitis J01.41 [facility] [address] [facility] [place] [place] [address] February, Acute maxillary sinusitis, recurrence no t specified J01.00 [place] [address] [address] [place] [id number] [place] [address] Jan, Bilateral primary osteoarthr itis of knee M17.0 ; Morbid obesity E66.01 ; Viral syndrome B34.9 and Atrial dilatation, left I51.7 [place] [address] [place] [id number] [address] [place] [address] Jan, [place] [address] [place] [id number] [address] [place] [address] Dec, Trigeminy R00.8 [place] [address] [place] [id number] [address] [place] [address] Dec, Essential hypertension I10 ; Morbid obesity E66.01 ; Low back pain M54.5 ; Other chronic pain G89.29 and Pain in right knee M25.561 [place] [address] [place] [id number] [address] [place] [address] Nov, [place] [id number] [place] [id number] [address] [place] [address] Oct, Palpitations R00.2 [place] [address] [place] [address] 30 Oct, 2018 Encounter for Medicare felipe [...] small and large intestine with complication K50.[address] [address] Oct, [place] [address] [address] 02 Oct, 2018 Crohn's disease of both smal l and large intestine with complication K50.819 [facility] [place] [id number] [place] [address] Jul, Sinusitis chronic, frontal J 32.1 ; Acute mucoid otitis media of both ears H65.113 ; Seasonal allergies J30.2 and BMI 50.0-59.9, adult Z68.43 [place] [id number] [address] [place] [address] Jul, Essential hypertension I10 ; Type 2 diabetes mellitus with other specified complication E11.69 ; BMI 50.0-59.9, adult Z68.43 ; Mixed stress and urge urinary incontinence N39.46 and Mid back pain on right side M54.[address] [address] Jun, Iron deficiency anemia due t o chronic blood loss D50.0 ; Hyperlipidemia E78.5 ; Type 2 diabetes mellitus with other specified complication E11.69 ; Vitamin B12 deficiency E53.8 and Vitamin D deficiency E55.9 [facility] [address] [place] [address] 14 Jun, 2018 Cough R05 and BMI 50.0-59.9, adult Z68.43 [place] [address] [address] Jun, [place] [address] [address] May, Iron deficiency anemia due t o chronic blood loss D50.0 ; Chronic diarrhea K52.9 ; Essential hypertension I10 ; Type 2 diabetes mellitus with other specified complication E11.69 ; Vitamin D deficiency E55.9 ; Colon stricture K56.699 ; Vitamin B12 deficiency E53.8 ; Hyperlipidemia E78.5 and BMI 50.0-59.9, adult Z68.43 [place] [address] [address] May, [place] [address] [address] Apr, Nonhealing wound of heel S91 .309A and Body mass index (BMI) of 50- 59.9 in adult Z68.43 [place] [address] [address] Mar, [place] [address] [address] Mar, BMI 50.0-59.9, adult Z68.43 ; Flank pain R10.9 and Weight loss counseling, encounter for Z71.3 [place] [address] [place] [id number] [place] [address] February, [place] [address] [address] Jan, [place] [address] [place] [id number] [place] [address] Jan, [facility] [address] [place] [id number] [place] [address] Jan, Diarrhea due to staphylococc us A04.8 and Diarrhea, unspecified type R19.7 [place] [address] [address] Jan, Acquired hypothyroidism E03. 9 ; Type 2 diabetes mellitus with other specified complication E11.69 ; Hyperlipidemia E78.5 ; Essential hypertension I10 ; Major depressive disorder, recurrent episode, moderate F33.1 and Vitamin D deficiency E55.9 [place] [address] [address] Jan, Type 2 diabetes mellitus wit h other specified complication E11.69 ; Hyperlipidemia E78.5 ; Essential hypertension I10 ; Acquired hypothyroidism E03.9 ; Major depressive disorder, recurrent episode, moderate F33.1 ; Vitamin D deficiency E55.9 ; Sinus congestion R09.81 and BMI 50.0-59.9, adult Z68.43 [place] [address] [address] Dec, [place] [address] [address] Sep, Encounter for immunization Z 23 [place] [address] [address] Sep, [place] [address] [address] Sep, Vitamin B12 deficiency E53.8 [place] [address] [address] Aug, [place] [address] [address] Aug, BMI 60.0-69.9, adult Z68.44 and Acute non-recurrent maxillary sinusitis J01.00 [place] [address] [address] Aug, [place] [address] [address] Aug, Medicare annual wellness vis it, initial Z00.00 ; Screening for breast cancer Z12.31 ; BMI 40.0-44.9, adult Z68.41 and Acquired hypothyroidism E03.9 [place] [address] [facility] [id number] [address] [place] [address] Jul, Actinic keratosis L57.0 [place] [address] [place] [id number] [address] [place] [address] Jul, Actinic keratosis L57.0 [place] [address] [facility] [id number] [address] [place] [address] Jul, Type 2 diabetes mellitus wit h other specified complication E11.69 ; Actinic keratosis L57.0 and Hypothyroidism, unspecified E03.9 [place] [address] [place] [address] Jul, [place] [address] [address] Jul, [place] [address] [place] [id number] [place] [address] Jul, Vitamin B12 deficiency E53.8 [place] [address] [place] [address] Jun, Acquired hypothyroidism E03. 9 and Chronic tension-type headache, intractable G44.221 [place] [address] [place] [address] Jun, Back muscle spasm M62.830 an d BMI 50.0-59.9, adult Z68.43 [place] [address] [place] [id number] [address] [place] [address] Jun, Vitamin B12 deficiency E53.8 [place] [address] [place] [id number] [address] [place] [address] 05 Jun, 2017 Crohn's disease of both smal l and large intestine with complication K50.819 [place] [address] [address] Jun, Crohn's disease of both smal l and large intestine with complication K50.819 [place] [address] [address] May, Hyperlipidemia E78.5 ; Anxie ty F41.9 and Essential hypertension I10 [place] [address] [address] May, [place] [address] [address] May, Encounter for immunization Z 23 and Vitamin B12 deficiency E53.8 [place] [address] [address] May, [place] [address] [address] Apr, [place] [address] [address] Apr, [place] [address] [address] Apr, Crohn's disease of both smal l and large intestine with complication K50.819 [place] [address] [address] Apr, Vitamin B12 deficiency E53.8 [place] [address] [address] Apr, Crohn's disease of both smal l and large intestine with complication K50.819 and Acute pain of right shoulder M25.511 [place] [address] [address] Mar, Type 2 diabetes mellitus wit hout complication E11.9 ; Frequent falls R29.6 and Other chest pain R07.89 [place] [address] [address] Mar, [place] [address] [id number] [address] [place] [address] Mar, [facility] [place] [address] [facility] [id number] [address] [place] [address] Mar, Type 2 diabetes mellitus wit hout complication E11.9 and Blurry vision, bilateral H53.8 [place] [address] [id number] [address] [place] [address] Mar, Vitamin B12 deficiency E53.8 [facility] [place] [address] [id number] [address] [place] [address] Mar, Crohn's disease of both smal l and large intestine with complication K50.819 [place] [address] [facility] [id number] [address] [place] [address] February, Vitamin B12 deficiency E53.8 [place] [address] [facility] [id number] [address] [place] [address] Jan, Crohn's disease of both smal l and large intestine with complication K50.819 [place] [id number] [id number] [address] [place] [address] Jan, Crohn's disease of both smal l and large intestine with complication K50.819 [facility] IN [facility] [address] [facility] [id number] [address] [place] [address] Jan, Dark brown-colored urine R82 .99 and Acute suppurative otitis media of right ear without spontaneous rupture of tympanic membrane, recurrence not specified H66.001 [place] [address] [facility] [id number] [address] [place] [address] Jan, Encounter for immunization Z 23 [place] [address] [facility] [id number] [address] [place] [address] Dec, Crohn's disease of both smal l and large intestine with complication K50.819 and Eustachian tube dysfunction, right H69.81 [facility] [place] [address] [place] [address] [address] Dec, [place] [address] [address] Dec, Contusion of right knee, ini tial encounter S80.01XA [place] [address] [address] Dec, [place] [address] [address] Dec, Acute pain of right knee M25 .[address] [address] Dec, Iron deficiency anemia due t o chronic blood loss D50.[address] [address] Dec, Hyperlipidemia E78.5 ; Type 2 diabetes mellitus without complication E11.9 ; Vitamin B12 deficiency E53.8 ; Essential hypertension I10 ; Obstructive sleep apnea on CPAP G47.33 and Periodic limb movement sleep disorder G47.[address] [address] Nov, Type 2 diabetes mellitus wit hout complication E11.9 ; Vitamin B12 deficiency E53.8 ; Hyperlipidemia E78.5 ; Essential hypertension I10 ; Obstructive sleep apnea on CPAP G47.33 ; Periodic limb movement sleep disorder G47.61 ; Anxiety F41.9 ; Acquired hypothyroidism E03.9 and Chronic tension-type headache, intractable G44.221 [place] [address] [address] Nov, Crohn's disease of both smal l and large intestine with complication K50.[address] [address] Nov, Vitamin B12 deficiency E53.[address] [address] Oct, [place] [address] [id number] [address] [place] [address] Oct, Vitamin B12 deficiency E53.8 [facility] [place] [address] [id number] [address] [place] [address] Sep, [facility] [place] [address] [id number] [address] [place] [address] Sep, Vitamin B12 deficiency E53.8 [facility] [place] [address] [id number] [address] [place] [address] Aug, [facility] [place] [address] [id number] [address] [place] [address] Aug, Vitamin B12 deficiency E53.8 [facility] [place] [address] [id number] [address] [place] [address] Aug, [facility] [place] [address] [id number] [address] [place] [address] Jul, Elevated ALT measurement R74 .0 [facility] [place] [address] [id number] [address] [place] [address] Jul, Hematuria R31.9 ; Acute righ t-sided thoracic back pain M54.6 ; Major depressive disorder, recurrent episode, moderate F33.1 and Elevated ALT measurement R74.0 [facility] [place] [address] [id number] [address] [place] [address] Jul, [facility] [place] [address] [id number] [address] [place] [address] Jul, Elevated ALT measurement R74 .0 [facility] [place] [address] [id number] [address] [place] [address] 14 Jul, 2016 Iron deficiency anemia due t o chronic blood loss D50.0 [facility] [place] [address] [id number] [address] [place] [address] 14 Jul, 2016 Type 2 diabetes mellitus wit hout complication E11.9 ; Acquired hypothyroidism E03.9 ; Iron deficiency anemia due to chronic blood loss D50.0 ; Hyperlipidemia E78.5 and Essential hypertension I10 [facility] [place] [address] [id number] [address] [place] [address] 26 Jun, 2016 [facility] [place] [address] [facility] [id number] [address] [place] [address] 20 Jun, 2016 Vitamin B12 deficiency E53.8 [facility] [place] [address] [facility] [id number] [address] [place] [address] 16 Jun, 2016 Type 2 diabetes mellitus wit hout complication E11.9 ; Acquired hypothyroidism E03.9 ; Iron deficiency anemia due to chronic blood loss D50.0 ; Hyperlipidemia E78.5 ; Essential hypertension I10 ; Chronic tension-type headache, intractable G44.221 ; Pulsatile tinnitus, bilateral H93.13 ; Obstructive sleep apnea on CPAP G47.33 and Major depressive disorder, recurrent episode, moderate F33.1 [place] [address] [facility] [id number] [address] [place] [address] May, Vitamin B12 deficiency E53.8 [place] [address] [facility] [id number] [address] [place] [address] May, [place] [address] [facility] [id number] [address] [place] [address] Apr, Vitamin B12 deficiency E53.8 [place] [id number] [facility] [id number] [address] [place] [address] Apr, [place] [address] [facility] [id number] [address] [place] [address] Mar, Chronic tension-type headach e, intractable G44.221 and Major depressive disorder, recurrent episode, moderate F33.1 [place] [id number] [facility] [id number] [address] [place] [address] 14 Mar, 2016 Vitamin B12 deficiency E53.8 [facility] [place] [address] [facility] [id number] [address] [place] [address] February, [facility] [place] [address] [facility] [id number] [address] [place] [address] February, Vitamin B12 deficiency E53.8 [facility] [place] [address] [id number] [address] [place] [address] February, [facility] [place] [address] [id number] [address] [place] [address] 27 Jan, 2016 Dysuria R30.0 [facility] [place] [address] [facility] [id number] [address] [place] [address] Jan, Type 2 diabetes mellitus wit hout complication E11.9 and Essential hypertension I10 [facility] [place] [address] [id number] [address] [place] [address] 15 Jan, 2016 Chronic diarrhea K52.9 [facility] [place] [address] [id number] [address] [place] [address] 13 Jan, 2016 [facility] [place] [address] [facility] [id number] [address] [place] [address] Jan, Chronic diarrhea K52.9 [facility] [place] [address] [id number] [address] [place] [address] Jan, [facility] [place] [address] [id number] [address] [place] [address] 12 Jan, 2016 Dysuria R30.0 [facility] [place] [address] [facility] [id number] [address] [place] [id number] 07 Jan, 2016 Vitamin B12 deficiency E53.8 [facility] [place] [address] [facility] [id number] [address] [place] [address] 07 Jan, 2016 Dysuria R30.0 and Iron defic iency anemia due to chronic blood loss D50.0 [facility] [place] [address] [id number] [address] [place] [address] 05 Jan, 2016 Dysuria R30.0 [facility] [place] [address] [facility] [id number] [address] [place] [address] 04 Jan, 2016 [facility] [place] [address] [facility] [id number] [address] [place] [address] 15 Dec, 2015 [facility] [place] [address] [facility] [id number] [address] [place] [address] 11 Dec, 2015 Iron deficiency anemia due t o chronic blood loss D50.0 [facility] [place] [address] [facility] [id number] [address] [place] [address] 10 Dec, 2015 Dysuria R30.0 ; Fatigue R53. 83 ; Hyperlipidemia E78.5 and Diarrhea R19.7 [facility] [place] [address] [facility] [id number] [address] [place] [address] Dec, [facility] [place] [address] [facility] [id number] [address] [place] [phone] Dec, [place] [address] [facility] [id number] [address] [place] [address] Nov, Vitamin B12 deficiency E53.8 [facility] [place] [address] [facility] [id number] [address] [place] [address] Oct, Vitamin B12 deficiency E53.8 [facility] [place] [address] [facility] [id number] [address] [place] [address] Oct, [facility] [address] [facility] [id number] [address] [place] [address] Oct, Headache R51 [facility] [place] [address] [facility] [id number] [address] [place] [id number] 07 Oct, 2015 Essential hypertension I10 ; Type 2 diabetes mellitus without complication E11.9 ; Vitamin B12 deficiency E53.8 ; Acquired hypothyroidism E03.9 ; Iron deficiency anemia due to chronic blood loss D50.0 and Hyperlipidemia E78.5 [facility] [place] [address] [facility] [id number] [address] [place] [address] Sep, Essential hypertension I10 ; Vitamin B12 deficiency E53.8 ; Iron deficiency anemia due to chronic blood loss D50.0 ; Type 2 diabetes mellitus without complication E11.9 ; Hyperlipidemia E78.5 and Acquired hypothyroidism E03.9 [facility] [place] [address] [facility] [id number] [address] [place] [phone] Sep, [facility] [place] [address] [facility] [id number] [address] [place] [phone] Sep, [facility] [place] [address] [place] [id number] [address] [place] [id number] Jul, [facility] [place] [address] [facility] [id number] [address] [place] [phone] Jun, [facility], [place], [facility] [address] [facility] [id number] [place] [phone] Jun, [facility], [place], [facility] [address] [facility] [id number] [address] [place] [phone] Jun, Hyperlipidemia 272.4 ; Iron deficiency anemia 280.9 ; Hypothyroidism 244.9 ; Diabetes mellitus without mention of complication, type II or unspecified type, not stated as uncontrolled 250.00 and Hypertension 401.9 [facility] [place] [id number] [place] [address] Jun, [facility] [place] [address] [id number] [address] [place] [address] Jun, [facility] [place] [address] [id number] [address] [place] [address] May, Hyperlipidemia 272.4 [facility] [place] [address] [id number] [address] [place] [address] May, [facility] [place] [address] [id number] [address] [place] [address] May, [facility] [place] [address] [facility] [id number] [address] [place] [address] Apr, Diabetes mellitus without me ntion of complication, type II or unspecified type, not stated as uncontrolled 250.00 ; Hypothyroidism 244.9 ; Hyperlipidemia 272.4 ; Pain in joint, lower leg 719.46 and RUQ pain 789.01 [facility] [place] [address] [id number] [address] [place] [address] Mar, Sinusitis 473.9 [facility] [address] [id number] [address] [place] [address] Mar, [facility] [address] [id number] [address] [place] [address] Mar, [facility] [address] [id number] [address] [place] [address] Mar, Hematochezia 578.1 [facility] [address] [id number] [address] [place] [address] February, Sinusitis 473.9 [facility] [address] [id number] [address] [place] [address], [place] [address] February, [facility] [address] [id number] [address] [place] [address] 14 Jan, 2015 [facility] [address] [id number] [address] [place] [address] Jan, [facility] [address] [id number] [address] [place] [address] Dec, [facility] [address] [id number] [address] [place] [address] Dec, [facility] [address] [id number] [address] [place] [address] Dec, [facility] [address] [id number] [address] [place] [address] Dec, [facility] [address] [id number] [address] [place] [id number] 24 Dec, 2014 [facility] [address] [id number] [address] [place] [address] 24 Dec, 2014 [facility] [address] [id number] [address] [place] [address] 23 Dec, 2014 [facility] [address] [id number] [address] [place] [id number] 13 Dec, 2014 [facility] [address] [id number] [address] [place] [address] Dec, [facility] [address] [id number] [address] [place] [address], [place] [address] Dec, [facility] [address] [id number] [address] [place] [address], [place] [address] Dec, [facility] [address] [id number] [address] [place] [address], [place] [address] Nov, [facility] [address] [id number] [address] [place] [address], [place] [address] Nov, [facility] [address] [id number] [address] [place] [address], [place] [address] Nov, [facility] [address] [id number] [address] [place] [address], [place] [address] Nov, [facility] [address] [id number] [address] [place] [address], [place] [address] Oct, [facility] [address] [id number] [address] [place] [address], [place] [address] Oct, [facility] [address] [id number] [address] [place] [address], [place] [address] Oct, [facility] [address] [id number] [address] [place] [address], [place] [address] Oct, [facility] [address] [id number] [address] [place] [address], [place] [address] Oct, [facility] [address] [id number] [address] [place] [address], [place] [address] Oct, [facility] [address] [id number] [address] [place] [address], [place] [address] Sep, [facility] [address] [id number] [address] [place] [address], [place] [address] Sep, [facility] [address] [id number] [address] [place] [address], [place] [address] Sep, [facility] [address] [id number] [address] [place] [address], [place] [address] Sep, [facility] [address] [id number] [address] [place] [address], [place] [address] Sep, [facility] [address] [id number] [address] [place] [address], [place] [address] Sep, [facility] [address] [id number] [address] [place] [address], [place] [address] Sep, [facility] [address] [id number] [address] [place] [address], [place] [address] Aug, [facility] [address] [id number] [address] [place] [address], [place] [address] Aug, [facility] [address] [id number] [address] [place] [address], [place] [address] Aug, [facility] [address] [id number] [address] [place] [address], [place] [address] Aug, [facility] [address] [id number] [address] [place] [address], [place] [address] Aug, [facility] [address] [id number] [address] [place] [address], [place] [address] Aug, [facility] [address] [id number] [address] [place] [address], [place] [address] Aug, [facility] [address] [id number] [address] [place] [address], [place] [address] Aug, [facility] [address] [id number] [address] [place] [address], [place] [address] Aug, [facility] [address] [id number] [address] [place] [address], [place] [address] 17 Aug, 2014 [facility] [address] [id number] [address] [place] [address], [place] [address] 13 Aug, 2014 [facility] [address] [id number] [address] [place] [address], [place] [address] Aug, [facility] [address] [id number] [address] [place] [address], [place] [address] Aug, [facility] [address] [id number] [address] [place] [address], [place] [address] Aug, [facility] [address] [id number] [address] [place] [address], [place] [address] Jul, [facility] [address] [id number] [address] [place] [address], [place] [address] Jul, [facility] [address] [id number] [address] [place] [address], [place] [address] Jul, [facility] [address] [id number] [address] [place] [address], [place] [address] Jul, [facility] [address] [id number] [address] [place] [address], [place] [address] 24 Jun, 2014 [facility] [address] [id number] [address] [place] [address], [place] [address] 24 Jun, 2013 [facility] [address] [id number] [address] [place] [address], [place] [address] 23 Jun, 2013 [facility] [address] [id number] [address] [place] [address], [place] [address] 23 Jun, 2013 [facility] [address] [id number] [address] [place] [address], [place] [address] 19 Jun, 2013 [facility] [address] [id number] [address] [place] [address] 19 Jun, 2013 [facility] [address] [id number] [address] [place] [address], [place] [address] 11 Jun, 2013 [facility] [address] [id number] [address] [place] [address], [place] [address] 11 Jun, 2013 [facility] [address] [id number] [address] [place] [address], [place] [address] 11 Jun, 2013 [facility] [address] [id number] [facility] [place] [address] 11 Jun, 2014 [facility] [address] [id number] [facility] [place] [address] Jun, [facility] [address] [id number] [facility] [place] [address] Jun, [facility] [address] [id number] [address] [place] [address], [place] [address] Jun, [facility] [address] [id number] [address] [place] [address], [place] [address] Jun, [facility] [address] [id number] [address] [place] [address], [place] [address] May, [facility] [address] [id number] [address] [place] [address], [place] [address] May, [facility] [address] [id number] [address] [place] [address], [place] [address] May, [facility] [address] [id number] [address] [place] [address], [place] [address] May, [facility] [address] [id number] [address] [place] [address], [place] [address] May, [facility] [address] [id number] [address] [place] [address], [place] [address] May, [facility] [address] [id number] [address] [place] [address], [place] [address] Apr, [facility] [address] [id number] [address] [place] [address], [place] [address] Apr, [facility] [address] [id number] [address] [place] [address], [place] [address] Apr, [facility] [address] [id number] [address] [place] [address], [place] [address] Apr, [facility] [address] [id number] [address] [place] [address], [place] [address] Apr, [facility] [address] [id number] [address] [place] [address], [place] [address] Apr, [facility] [address] [id number] [address] [place] [address], [place] [address] Apr, [facility] [address] [id number] [address] [place] [address], [place] [address] Apr, [facility] [address] [id number] [address] [place] [address], [place] [address] Apr, [facility] [address] [id number] [address] [place] [address], [place] [address] Apr, [facility] [address] [id number] [address] [place] [address], [place] [address] Apr, [facility] [address] [id number] [address] [place] [address], [place] [address] Mar, [facility] [address] [id number] [address] [place] [address], [place] [address] Mar, [facility] [address] [id number] [address] [place] [address], [place] [address] Mar, [facility] [address] [id number] [address] [place] [address], [place] [address] Mar, [facility] [address] [id number] [address] [place] [address], [place] [address] February, [facility] [address] [id number] [address] [place] [address], [place] [address] February, [facility] [address] [id number] [address] [place] [address], [place] [address] Jan, [facility] [address] [id number] [address] [place] [address], [place] [address] Jan, [facility] [address] [place] [id number] Jan, [facility] [address] [id number] [address] [place] [address], [place] [address] Jan, [facility] [address] [id number] [facility] [place] [address] Jan, [facility] [address] [id number] [facility] [place] [address] Jan, [facility] [address] [id number] [address] [place] [address], [place] [address] Jan, [facility] [address] [id number] [address] [place] [address], [place] [address] Jan, [facility] [address] [id number] [address] [place] [address], [place] [address] Jan, [facility] [address] [id number] [address] [place] [address], [place] [address] Jan, [facility] [address] [id number] [address] [place] [address], [place] [address] Jan, [facility] [address] [id number] [address] [place] [address], [place] [address] Jan, [facility] [address] [id number] [address] [place] [address], [place] [address] Jan, [facility] [address] [id number] [address] [place] [address], [place] [address] Jan, [facility] [address] [id number] [address] [place] [address], [place] [address] Jan, [facility] [address] [id number] [address] [place] [address], [place] [address] Jan, [facility] [address] [id number] [address] [place] [address], [place] [address] Jan, [facility] [address] [id number] [address] [place] [address], [place] [address] Dec, [facility] [address] [id number] [address] [place] [address], [place] [address] Dec, [facility] [address] [id number] [address] [place] [address], [place] [address] Dec, [facility] [address] [id number] [address] [place] [address], [place] [address] Dec, [facility] [address] [id number] [address] [place] [address], [place] [address] Dec, [facility] [address] [id number] [address] [place] [address], [place] [address] Dec, [facility] [address] [id number] [address] [place] [address], [place] [address] Dec, [facility] [address] [id number] [address] [place] [address], [place] [address] Nov, [facility] [address] [id number] [address] [place] [address], [place] [address] Nov, [facility] [address] [id number] [address] [place] [address], [place] [address] Nov, [facility] [address] [id number] [address] [place] [address], [place] [address] Nov, [facility] [address] [id number] [address] [place] [address], [place] [address] Nov, [facility] [address] [id number] [address] [place] [address], [place] [address] Nov, [facility] [address] [id number] [address] [place] [address], [place] [address] Nov, [facility] [address] [id number] [address] [place] [address], [place] [address] Oct, [facility] [address] [id number] [address] [place] [address], [place] [address] Oct, [facility] [address] [id number] [address] [place] [address], [place] [address] Sep, [facility] [address] [id number] [address] [place] [address], [place] [address] Sep, [facility] [address] [id number] [address] [place] [address], [place] [address] Sep, [facility] [address] [id number] [address] [place] [address], [place] [address] Sep, [facility] [address] [id number] [address] [place] [address], [place] [address] Sep, [facility] [address] [id number] [address] [place] [address], [place] [address] Sep, [facility] [address] [id number] [address] [place] [address], [place] [address] Sep, [facility] [address] [id number] [address] [place] [address], [place] [address] Sep, [facility] [address] [id number] [address] [place] [address], [place] [address] Sep, [facility] [address] [id number] [address] [place] [address], [place] [address] Sep, [facility] [address] [id number] [address] [place] [address], [place] [address] Aug, [facility] [address] [id number] [address] [place] [address] Aug, [facility] [address] [id number] [address] [place] [address] Aug, [facility] [address] [id number] [address] [place] [address] Aug, [facility] [address] [id number] [address] [place] [address], [place] [address] Aug, [facility] [address] [id number] [address] [place] [address] Jul, [facility] [address] [id number] [address] [place] [address], [place] [address] Jul, [facility] [address] [id number] [address] [place] [address] Jul, [facility] [place] [address] [facility] [id number] [address] [place] [address] Jul, IMMUNIZATIONS No Known Immunizations SOCIAL HISTORY [...]
--- OUTSIDE RECORDS SUMMARY | 2020-03-16 11:59 | XMS REPORT ---
Author Author Swathi Benavides Organization [facility] Address [address] [place] [address] Care Team Providers Care Dance Artist Name Role Phone WIL Benavides Unavailable PROBLEMS Type Condition ICD9-CM Code [id number] Code Onset Dates Condition S tatus SNOMED Code Problem Sensorineural hearing loss of right ear H90.41 Active 22674092 Problem Obstructive sleep apnea on CPAP G47.33 Active 32847875 Problem Periodic limb movement sleep disorder G47.61 Active 239819762 Problem Iron deficiency anemia due to chronic blood loss D 50.0 Active 92108323 Problem MACHUCA (nonalcoholic steatohepatitis) K75.81 Active 632966988 Problem Vitamin B12 deficiency E53.8 Active 903779042 Problem Chronic diarrhea K52.9 Active 236 052437 Problem Vitamin D deficiency E55.9 Active 10803562 Problem BMI 50.0-59.9, adult Z68.43 Active 177027707 Problem Fatty liver K76.0 Active 24691495 7 Problem Anxiety F41.9 Active 78895462 Problem Major depressive disorder, recurrent episode, moderate F33.1 Active 036401514 Problem Chronic tension-type headache, intractable G44.221 Active 621610277 Problem Right upper quadrant pain R10.11 Acti ve 39759192 Problem Frequent falls R29.6 Active 44796 2002 Problem Crohn's disease of both small and large intestin e with complication K50.819 Active 56398852 Problem Type 2 diabetes mellitus with other specified complication E11.69 Active 271827937909 Problem Hyperlipidemia, unspecified E78.5 Ac tive 11569819 Problem Mixed stress and urge urinary incontinence N39.46 Active 294458485 Problem Sinusitis chronic, frontal J32.1 Act katlyn 04917195 Problem Seasonal allergies J30.2 Active 4 35549075 Problem Other chronic pain G89.29 Active 8 5503518 Problem Hyperlipidemia E78.5 Active 71335 004 Problem Bilateral primary osteoarthritis of knee M17.0 Active 394574940 Problem Essential hypertension I10 Active 61943117 Problem Acquired hypothyroidism E03.9 Active 719873738 Problem History of hysterectomy for benign disease Z90.710 Active 310420187 Problem Morbid (severe) obesity due to excess calories E66 .01 Active 859777064 Problem Other cirrhosis of liver K74.69 Activ e 88449802 Problem Portal hypertension K76.6 Active 15506971 ALLERGIES No Information ENCOUNTERS Encounter Location Date Diagnosis [place] [address] [address] [facility] [id number] [address] [place] [phone] February, [facility]ALK IN [facility] [address] [facility] [address] [facility] [address] February, Acute recurrent pansinusitis J01.41 [facility] [address] [facility] [address] [facility] [place] [address] February, Acute maxillary sinusitis, recurrence no t specified J01.00 [place] [address] [address] [place] [id number] [address] [place] [phone] Jan, Bilateral primary osteoarthr itis of knee M17.0 ; Morbid obesity E66.01 ; Viral syndrome B34.9 and Atrial dilatation, left I51.7 [place] [address] [address] [place] [id number] [address] [place] [phone] Jan, [place] [address] [address] [place] [id number] [address] [place] [phone] Dec, Trigeminy R00.8 [place] [address] [address] [place] [id number] [address] [place] [phone] Dec, Essential hypertension I10 ; Morbid obesity E66.01 ; Low back pain M54.5 ; Other chronic pain G89.29 and Pain in right knee M25.561 [place] [address] [address] [place] [id number] [address] [place] [address] Nov, [place] [place] [id number] [address] [place] [phone] Oct, Palpitations R00.2 [place] [id number] [place] [address] 30 Oct, 2018 Encounter for Medicare felipe [...] small and large intestine with complication K50.[address] [address] Oct, [place] [address] [address] 02 Oct, 2018 Crohn's disease of both smal l and large intestine with complication K50.819 [facility] [place] [id number] [place] [phone] Jul, Sinusitis chronic, frontal J 32.1 ; Acute mucoid otitis media of both ears H65.113 ; Seasonal allergies J30.2 and BMI 50.0-59.9, adult Z68.43 [place] [id number] [address] [place] [address] Jul, Essential hypertension I10 ; Type 2 diabetes mellitus with other specified complication E11.69 ; BMI 50.0-59.9, adult Z68.43 ; Mixed stress and urge urinary incontinence N39.46 and Mid back pain on right side M54.[address] [address] Jun, Iron deficiency anemia due t o chronic blood loss D50.0 ; Hyperlipidemia E78.5 ; Type 2 diabetes mellitus with other specified complication E11.69 ; Vitamin B12 deficiency E53.8 and Vitamin D deficiency E55.9 [facility] [address] [place] [address] 14 Jun, 2018 Cough R05 and BMI 50.0-59.9, adult Z68.43 [place] [address] [address] Jun, [place] [address] [address] May, Iron deficiency anemia due t o chronic blood loss D50.0 ; Chronic diarrhea K52.9 ; Essential hypertension I10 ; Type 2 diabetes mellitus with other specified complication E11.69 ; Vitamin D deficiency E55.9 ; Colon stricture K56.699 ; Vitamin B12 deficiency E53.8 ; Hyperlipidemia E78.5 and BMI 50.0-59.9, adult Z68.43 [place] [address] [address] May, [place] [address] [address] Apr, Nonhealing wound of heel S91 .309A and Body mass index (BMI) of 50- 59.9 in adult Z68.43 [place] [address] [address] Mar, [place] [address] [address] Mar, BMI 50.0-59.9, adult Z68.43 ; Flank pain R10.9 and Weight loss counseling, encounter for Z71.3 [place] [address] [address] [place] [id number] [place] [phone] February, [place] [address] [address] Jan, [place] [address] [address] [place] [id number] [place] [phone] Jan, [facility] [address] [place] [id number] [place] [address] Jan, Diarrhea due to staphylococc us A04.8 and Diarrhea, unspecified type R19.7 [place] [address] [address] Jan, Acquired hypothyroidism E03. 9 ; Type 2 diabetes mellitus with other specified complication E11.69 ; Hyperlipidemia E78.5 ; Essential hypertension I10 ; Major depressive disorder, recurrent episode, moderate F33.1 and Vitamin D deficiency E55.9 [place] [address] [address] Jan, Type 2 diabetes mellitus wit h other specified complication E11.69 ; Hyperlipidemia E78.5 ; Essential hypertension I10 ; Acquired hypothyroidism E03.9 ; Major depressive disorder, recurrent episode, moderate F33.1 ; Vitamin D deficiency E55.9 ; Sinus congestion R09.81 and BMI 50.0-59.9, adult Z68.43 [place] [address] [address] Dec, [place] [address] [address] Sep, Encounter for immunization Z 23 [place] [address] [address] Sep, [place] [address] [address] Sep, Vitamin B12 deficiency E53.8 [place] [address] [address] Aug, [place] [address] [address] Aug, BMI 60.0-69.9, adult Z68.44 and Acute non-recurrent maxillary sinusitis J01.00 [place] [address] [address] Aug, [place] [address] [address] Aug, Medicare annual wellness vis it, initial Z00.00 ; Screening for breast cancer Z12.31 ; BMI 40.0-44.9, adult Z68.41 and Acquired hypothyroidism E03.9 [place] [address] [address] [facility] [id number] [address] [place] [address] Jul, Actinic keratosis L57.0 [place] [address] [place] [id number] [address] [place] [phone] Jul, Actinic keratosis L57.0 [place] [address] [address] [facility] [id number] [address] [place] [address] Jul, Type 2 diabetes mellitus wit h other specified complication E11.69 ; Actinic keratosis L57.0 and Hypothyroidism, unspecified E03.9 [place] [address] [place] [address] Jul, [place] [address] [address] Jul, [place] [address] [address] [place] [id number] [place] [address] Jul, Vitamin B12 deficiency E53.8 [place] [address] [place] [address] Jun, Acquired hypothyroidism E03. 9 and Chronic tension-type headache, intractable G44.221 [place] [address] [place] [address] Jun, Back muscle spasm M62.830 an d BMI 50.0-59.9, adult Z68.43 [place] [address] [place] [id number] [address] [place] [address] Jun, Vitamin B12 deficiency E53.8 [place] [address] [address] [place] [id number] [address] [place] [address] 05 Jun, 2017 Crohn's disease of both smal l and large intestine with complication K50.819 [place] [address] [address] Jun, Crohn's disease of both smal l and large intestine with complication K50.819 [place] [address] [address] May, Hyperlipidemia E78.5 ; Anxie ty F41.9 and Essential hypertension I10 [place] [address] [address] May, [place] [address] [address] May, Encounter for immunization Z 23 and Vitamin B12 deficiency E53.8 [place] [address] [address] May, [place] [address] [address] Apr, [place] [address] [address] Apr, [place] [address] [address] Apr, Crohn's disease of both smal l and large intestine with complication K50.819 [place] [address] [address] Apr, Vitamin B12 deficiency E53.8 [place] [address] [address] Apr, Crohn's disease of both smal l and large intestine with complication K50.819 and Acute pain of right shoulder M25.511 [place] [address] [address] Mar, Type 2 diabetes mellitus wit hout complication E11.9 ; Frequent falls R29.6 and Other chest pain R07.89 [place] [address] [address] Mar, [place] [address] [id number] [address] [place] [phone] Mar, [facility] [address] [facility] [id number] [address] [place] [address] Mar, Type 2 diabetes mellitus wit hout complication E11.9 and Blurry vision, bilateral H53.8 [place] [address] [id number] [address] [place] [address] Mar, Vitamin B12 deficiency E53.8 [facility] [address] [id number] [address] [place] [address] Mar, Crohn's disease of both smal l and large intestine with complication K50.819 [place] [address] [address] [facility] [id number] [address] [place] [address] February, Vitamin B12 deficiency E53.8 [place] [address] [address] [facility] [id number] [address] [place] [address] Jan, Crohn's disease of both smal l and large intestine with complication K50.819 [place] [address] [id number] [address] [place] [address] Jan, Crohn's disease of both smal l and large intestine with complication K50.819 [facility] [address] [facility] [id number] [address] [place] [address] Jan, Dark brown-colored urine R82 .99 and Acute suppurative otitis media of right ear without spontaneous rupture of tympanic membrane, recurrence not specified H66.001 [place] [address] [address] [facility] [id number] [address] [place] [address] Jan, Encounter for immunization Z 23 [place] [address] [address] [facility] [id number] [address] [place] [address] Dec, Crohn's disease of both smal l and large intestine with complication K50.819 and Eustachian tube dysfunction, right H69.81 [facility] [address] [place] [address] [address] Dec, [place] [address] [address] Dec, Contusion of right knee, ini tial encounter S80.01XA [place] [address] [address] Dec, [place] [address] [address] Dec, Acute pain of right knee M25 .[address] [address] Dec, Iron deficiency anemia due t o chronic blood loss D50.[address] [address] Dec, Hyperlipidemia E78.5 ; Type 2 diabetes mellitus without complication E11.9 ; Vitamin B12 deficiency E53.8 ; Essential hypertension I10 ; Obstructive sleep apnea on CPAP G47.33 and Periodic limb movement sleep disorder G47.[address] [address] Nov, Type 2 diabetes mellitus wit hout complication E11.9 ; Vitamin B12 deficiency E53.8 ; Hyperlipidemia E78.5 ; Essential hypertension I10 ; Obstructive sleep apnea on CPAP G47.33 ; Periodic limb movement sleep disorder G47.61 ; Anxiety F41.9 ; Acquired hypothyroidism E03.9 and Chronic tension-type headache, intractable G44.221 [place] [address] [address] Nov, Crohn's disease of both smal l and large intestine with complication K50.[address] [address] Nov, Vitamin B12 deficiency E53.[address] [address] Oct, [place] [address] [id number] [address] [place] [address] Oct, Vitamin B12 deficiency E53.8 [facility] [address] [id number] [address] [place] [phone] Sep, [facility] [address] [id number] [address] [place] [address] Sep, Vitamin B12 deficiency E53.8 [facility] [address] [id number] [address] [place] [phone] Aug, [facility] [address] [id number] [address] [place] [address] Aug, Vitamin B12 deficiency E53.8 [facility] [address] [id number] [address] [place] [address] Aug, [facility] [address] [id number] [address] [place] [address] Jul, Elevated ALT measurement R74 .0 [facility] [address] [id number] [address] [place] [address] Jul, Hematuria R31.9 ; Acute righ t-sided thoracic back pain M54.6 ; Major depressive disorder, recurrent episode, moderate F33.1 and Elevated ALT measurement R74.0 [facility] [address] [id number] [address] [place] [id number] Jul, [facility] [address] [id number] [address] [place] [address] Jul, Elevated ALT measurement R74 .0 [facility] [address] [id number] [address] [place] [phone] 14 Jul, 2016 Iron deficiency anemia due t o chronic blood loss D50.0 [facility] [address] [id number] [address] [place] [phone] 14 Jul, 2016 Type 2 diabetes mellitus wit hout complication E11.9 ; Acquired hypothyroidism E03.9 ; Iron deficiency anemia due to chronic blood loss D50.0 ; Hyperlipidemia E78.5 and Essential hypertension I10 [facility] [address] [id number] [address] [place] [address] 26 Jun, 2016 [facility] [address] [facility] [id number] [address] [place] [address] 20 Jun, 2016 Vitamin B12 deficiency E53.8 [facility] [address] [facility] [id number] [address] [place] [phone] 16 Jun, 2016 Type 2 diabetes mellitus wit hout complication E11.9 ; Acquired hypothyroidism E03.9 ; Iron deficiency anemia due to chronic blood loss D50.0 ; Hyperlipidemia E78.5 ; Essential hypertension I10 ; Chronic tension-type headache, intractable G44.221 ; Pulsatile tinnitus, bilateral H93.13 ; Obstructive sleep apnea on CPAP G47.33 and Major depressive disorder, recurrent episode, moderate F33.1 [place] [address] [address] [facility] [id number] [address] [place] [phone] May, Vitamin B12 deficiency E53.8 [place] [address] [address] [facility] [id number] [address] [place] [address] May, [place] [address] [address] [facility] [id number] [address] [place] [address] Apr, Vitamin B12 deficiency E53.8 [place] [address] [facility] [id number] [address] [place] [address] Apr, [place] [address] [address] [facility] [id number] [address] [place] [address] Mar, Chronic tension-type headach e, intractable G44.221 and Major depressive disorder, recurrent episode, moderate F33.1 [place] [address] [facility] [id number] [address] [place] [address] 14 Mar, 2016 Vitamin B12 deficiency E53.8 [facility] [address] [facility] [id number] [address] [place] [address] February, [facility] [address] [facility] [id number] [address] [place] [address] February, Vitamin B12 deficiency E53.8 [facility] [address] [id number] [address] [place] [phone] February, [facility] [address] [id number] [address] [place] [address] 27 Jan, 2016 Dysuria R30.0 [facility] [address] [facility] [id number] [address] [place] [phone] Jan, Type 2 diabetes mellitus wit hout complication E11.9 and Essential hypertension I10 [facility] [address] [id number] [address] [place] [phone] 15 Jan, 2016 Chronic diarrhea K52.9 [facility] [address] [id number] [address] [place] [phone] 13 Jan, 2016 [facility] [address] [facility] [id number] [address] [place] [phone] Jan, Chronic diarrhea K52.9 [facility] [address] [id number] [address] [place] [address] Jan, [facility] [address] [id number] [address] [place] [phone] 12 Jan, 2016 Dysuria R30.0 [facility] [address] [facility] [id number] [address] [place] [phone] 07 Jan, 2016 Vitamin B12 deficiency E53.8 [facility] [address] [facility] [id number] [address] [place] [phone] 07 Jan, 2016 Dysuria R30.0 and Iron defic iency anemia due to chronic blood loss D50.0 [facility] [address] [id number] [address] [place] [phone] 05 Jan, 2016 Dysuria R30.0 [facility] [address] [facility] [id number] [address] [place] [phone] 04 Jan, 2016 [facility] [address] [facility] [id number] [address] [place] [phone] 15 Dec, 2015 [facility] [address] [facility] [id number] [address] [place] [phone] 11 Dec, 2015 Iron deficiency anemia due t o chronic blood loss D50.0 [facility] [address] [facility] [id number] [address] [place] [phone] 10 Dec, 2015 Dysuria R30.0 ; Fatigue R53. 83 ; Hyperlipidemia E78.5 and Diarrhea R19.7 [facility] [address] [facility] [id number] [address] [place] [phone] Dec, [facility] [address] [facility] [id number] [address] [place] [phone] Dec, [place] [address] [facility] [id number] [address] [place] [phone] Nov, Vitamin B12 deficiency E53.8 [facility] [address] [facility] [id number] [address] [place] [phone] Oct, Vitamin B12 deficiency E53.8 [facility] [address] [facility] [id number] [address] [place] [phone] Oct, [facility] [address] [facility] [id number] [address] [place] [phone] Oct, Headache R51 [facility] [address] [facility] [id number] [address] [place] [phone] 07 Oct, 2015 Essential hypertension I10 ; Type 2 diabetes mellitus without complication E11.9 ; Vitamin B12 deficiency E53.8 ; Acquired hypothyroidism E03.9 ; Iron deficiency anemia due to chronic blood loss D50.0 and Hyperlipidemia E78.5 [facility] [address] [facility] [id number] [address] [place] [phone] Sep, Essential hypertension I10 ; Vitamin B12 deficiency E53.8 ; Iron deficiency anemia due to chronic blood loss D50.0 ; Type 2 diabetes mellitus without complication E11.9 ; Hyperlipidemia E78.5 and Acquired hypothyroidism E03.9 [facility] [address] [facility] [id number] [address] [place] [phone] Sep, [facility] [address] [facility] [id number] [address] [place] [phone] Sep, [facility] [address] [place] [id number] [address] [place] [phone] Jul, [facility] [address] [facility] [id number] [address] [place] [phone] Jun, [facility] [address] [facility] [id number] [place] [id number] Jun, [facility] [address] [facility] [id number] [address] [place] [phone] Jun, Hyperlipidemia 272.4 ; Iron deficiency anemia 280.9 ; Hypothyroidism 244.9 ; Diabetes mellitus without mention of complication, type II or unspecified type, not stated as uncontrolled 250.00 and Hypertension 401.9 [facility] [id number] [place] [phone] Jun, [facility] [address] [place] [id number] [address] [place] [phone] Jun, [facility] [address] [place] [id number] [address] [place] [phone] May, Hyperlipidemia 272.4 [facility] [address] [place] [id number] [address] [place] [phone] May, [facility] [address] [place] [id number] [address] [place] [place] [id number] May, [facility] [address] [facility] [id number] [address] [place] [id number] Apr, Diabetes mellitus without me ntion of complication, type II or unspecified type, not stated as uncontrolled 250.00 ; Hypothyroidism 244.9 ; Hyperlipidemia 272.4 ; Pain in joint, lower leg 719.46 and RUQ pain 789.01 [facility] [address] [place] [id number] [address] [place] [id number] Mar, Sinusitis 473.9 [facility] [address] [id number] [address] [place] [id number] Mar, [facility] [address] [id number] [address] [place] [phone] Mar, [facility] [address] [id number] [address] [place] [phone] Mar, Hematochezia 578.1 [facility] [address] [id number] [address] [place] [phone] February, Sinusitis 473.9 [facility] [address] [id number] [address] [place] [address], [place] [address] February, [facility] [address] [id number] [address] [place] [id number] 14 Jan, 2015 [facility] [address] [id number] [address] [place] [phone] Jan, [facility] [address] [id number] [address] [place] [phone] Dec, [facility] [address] [id number] [address] [place] [phone] Dec, [facility] [address] [id number] [address] [place] [phone] Dec, [facility] [address] [id number] [address] [place] [phone] Dec, [facility] [address] [id number] [address] [place] [phone] 24 Dec, 2014 [facility] [address] [id number] [address] [place] [id number] 24 Dec, 2014 [facility] [address] [id number] [address] [place] [phone] 23 Dec, 2014 [facility] [address] [id number] [address] [place] [id number] 13 Dec, 2014 [facility] [address] [id number] [address] [place] [phone] Dec, [facility] [address] [id number] [address] [place] [address], [place] [address] Dec, [facility] [address] [id number] [address] [place] [address], [place] [address] Dec, [facility] [address] [id number] [address] [place] [address], [place] [address] Nov, [facility] [address] [id number] [address] [place] [address], [place] [address] Nov, [facility] [address] [id number] [address] [place] [address], [place] [address] Nov, [facility] [address] [id number] [address] [place] [address], [place] [address] Nov, [facility] [address] [id number] [address] [place] [address], [place] [address] Oct, [facility] [address] [id number] [address] [place] [address], [place] [address] Oct, [facility] [address] [id number] [address] [place] [address], [place] [address] Oct, [facility] [address] [id number] [address] [place] [address], [place] [address] Oct, [facility] [address] [id number] [address] [place] [address], [place] [address] Oct, [facility] [address] [id number] [address] [place] [address], [place] [address] Oct, [facility] [address] [id number] [address] [place] [address], [place] [address] Sep, [facility] [address] [id number] [address] [place] [address], [place] [address] Sep, [facility] [address] [id number] [address] [place] [address], [place] [address] Sep, [facility] [address] [id number] [address] [place] [address], [place] [address] Sep, [facility] [address] [id number] [address] [place] [address], [place] [address] Sep, [facility] [address] [id number] [address] [place] [address], [place] [address] Sep, [facility] [address] [id number] [address] [place] [address], [place] [address] Sep, [facility] [address] [id number] [address] [place] [address], [place] [address] Aug, [facility] [address] [id number] [address] [place] [address], [place] [address] Aug, [facility] [address] [id number] [address] [place] [address], [place] [address] Aug, [facility] [address] [id number] [address] [place] [address], [place] [address] Aug, [facility] [address] [id number] [address] [place] [address], [place] [address] Aug, [facility] [address] [id number] [address] [place] [address], [place] [address] Aug, [facility] [address] [id number] [address] [place] [address], [place] [address] Aug, [facility] [address] [id number] [address] [place] [address], [place] [address] Aug, [facility] [address] [id number] [address] [place] [address], [place] [address] Aug, [facility] [address] [id number] [address] [place] [address], [place] [address] 17 Aug, 2014 [facility] [address] [id number] [address] [place] [address], [place] [address] 13 Aug, 2014 [facility] [address] [id number] [address] [place] [address], [place] [address] Aug, [facility] [address] [id number] [address] [place] [address], [place] [address] Aug, [facility] [address] [id number] [address] [place] [address], [place] [address] Aug, [facility] [address] [id number] [address] [place] [address], [place] [address] Jul, [facility] [address] [id number] [address] [place] [address], [place] [address] Jul, [facility] [address] [id number] [address] [place] [address], [place] [address] Jul, [facility] [address] [id number] [address] [place] [address], [place] [address] Jul, [facility] [address] [id number] [address] [place] [address], [place] [address] 24 Jun, 2014 [facility] [address] [id number] [address] [place] [address], [place] [address] 24 Jun, 2013 [facility] [address] [id number] [address] [place] [address], [place] [address] 23 Jun, 2013 [facility] [address] [id number] [address] [place] [address], [place] [address] 23 Jun, 2013 [facility] [address] [id number] [address] [place] [address], [place] [address] 19 Jun, 2013 [facility] [address] [id number] [address] [place] [id number] 19 Jun, 2013 [facility] [address] [id number] [address] [place] [address], [place] [address] 11 Jun, 2013 [facility] [address] [id number] [address] [place] [address], [place] [address] 11 Jun, 2013 [facility] [address] [id number] [address] [place] [address], [place] [address] 11 Jun, 2013 [facility] [address] [id number] [facility] [place] [address] 11 Jun, 2014 [facility] [address] [id number] [facility] [place] [address] Jun, [facility] [address] [id number] [facility] [place] [address] Jun, [facility] [address] [id number] [address] [place] [address], [place] [address] Jun, [facility] [address] [id number] [address] [place] [address], [place] [address] Jun, [facility] [address] [id number] [address] [place] [address], [place] [address] May, [facility] [address] [id number] [address] [place] [address], [place] [address] May, [facility] [address] [id number] [address] [place] [address], [place] [address] May, [facility] [address] [id number] [address] [place] [address], [place] [address] May, [facility] [address] [id number] [address] [place] [address], [place] [address] May, [facility] [address] [id number] [address] [place] [address], [place] [address] May, [facility] [address] [id number] [address] [place] [address], [place] [address] Apr, [facility] [address] [id number] [address] [place] [address], [place] [address] Apr, [facility] [address] [id number] [address] [place] [address], [place] [address] Apr, [facility] [address] [id number] [address] [place] [address], [place] [address] Apr, [facility] [address] [id number] [address] [place] [address], [place] [address] Apr, [facility] [address] [id number] [address] [place] [address], [place] [address] Apr, [facility] [address] [id number] [address] [place] [address], [place] [address] Apr, [facility] [address] [id number] [address] [place] [address], [place] [address] Apr, [facility] [address] [id number] [address] [place] [address], [place] [address] Apr, [facility] [address] [id number] [address] [place] [address], [place] [address] Apr, [facility] [address] [id number] [address] [place] [address], [place] [address] Apr, [facility] [address] [id number] [address] [place] [address], [place] [address] Mar, [facility] [address] [id number] [address] [place] [address], [place] [address] Mar, [facility] [address] [id number] [address] [place] [address], [place] [address] Mar, [facility] [address] [id number] [address] [place] [address], [place] [address] Mar, [facility] [address] [id number] [address] [place] [address], [place] [address] February, [facility] [address] [id number] [address] [place] [address], [place] [address] February, [facility] [address] [id number] [address] [place] [address], [place] [address] Jan, [facility] [address] [id number] [address] [place] [address], [place] [address] Jan, [facility] [address] [place] [id number] Jan, [facility] [address] [id number] [address] [place] [address], [place] [address] Jan, [facility] [address] [id number] [facility] [place] [address] Jan, [facility] [address] [id number] [facility] [place] [address] Jan, [facility] [address] [id number] [address] [place] [address], [place] [address] Jan, [facility] [address] [id number] [address] [place] [address], [place] [address] Jan, [facility] [address] [id number] [address] [place] [address], [place] [address] Jan, [facility] [address] [id number] [address] [place] [address], [place] [address] Jan, [facility] [address] [id number] [address] [place] [address], [place] [address] Jan, [facility] [address] [id number] [address] [place] [address], [place] [address] Jan, [facility] [address] [id number] [address] [place] [address], [place] [address] Jan, [facility] [address] [id number] [address] [place] [address], [place] [address] Jan, [facility] [address] [id number] [address] [place] [address], [place] [address] Jan, [facility] [address] [id number] [address] [place] [address], [place] [address] Jan, [facility] [address] [id number] [address] [place] [address], [place] [address] Jan, [facility] [address] [id number] [address] [place] [address], [place] [address] Dec, [facility] [address] [id number] [address] [place] [address], [place] [address] Dec, [facility] [address] [id number] [address] [place] [address], [place] [address] Dec, [facility] [address] [id number] [address] [place] [address], [place] [address] Dec, [facility] [address] [id number] [address] [place] [address], [place] [address] Dec, [facility] [address] [id number] [address] [place] [address], [place] [address] Dec, [facility] [address] [id number] [address] [place] [address], [place] [address] Dec, [facility] [address] [id number] [address] [place] [address], [place] [address] Nov, [facility] [address] [id number] [address] [place] [address], [place] [address] Nov, [facility] [address] [id number] [address] [place] [address], [place] [address] Nov, [facility] [address] [id number] [address] [place] [address], [place] [address] Nov, [facility] [address] [id number] [address] [place] [address], [place] [address] Nov, [facility] [address] [id number] [address] [place] [address], [place] [address] Nov, [facility] [address] [id number] [address] [place] [address], [place] [address] Nov, [facility] [address] [id number] [address] [place] [address], [place] [address] Oct, [facility] [address] [id number] [address] [place] [address], [place] [address] Oct, [facility] [address] [id number] [address] [place] [address], [place] [address] Sep, [facility] [address] [id number] [address] [place] [address], [place] [address] Sep, [facility] [address] [id number] [address] [place] [address], [place] [address] Sep, [facility] [address] [id number] [address] [place] [address], [place] [address] Sep, [facility] [address] [id number] [address] [place] [address], [place] [address] Sep, [facility] [address] [id number] [address] [place] [address], [place] [address] Sep, [facility] [address] [id number] [address] [place] [address], [place] [address] Sep, [facility] [address] [id number] [address] [place] [address], [place] [address] Sep, [facility] [address] [id number] [address] [place] [address], [place] [address] Sep, [facility] [address] [id number] [address] [place] [address], [place] [address] Sep, [facility] [address] [id number] [address] [place] [address], [place] [address] Aug, [facility] [address] [id number] [address] [place] [address] Aug, [facility] [address] [id number] [address] [place] [id number] Aug, [facility] [address] [id number] [address] [place] [id number] Aug, [facility] [address] [id number] [address] [place] [address], [place] [address] Aug, [facility] [address] [id number] [address] [place] [address] Jul, [facility] [address] [id number] [address] [place] [address], [place] [address] Jul, [facility] [address] [id number] [address] [place] [id number] Jul, [facility] [address] [facility] [id number] [address] [place] [id number] Jul, IMMUNIZATIONS No Known Immunizations SOCIAL HISTORY [...]
--- OUTSIDE RECORDS SUMMARY | 2020-03-16 11:59 | XMS REPORT ---
Author Author Swathi Benavides Organization [facility] Address [address] [place] [address] Care Team Providers Care Covered Button Maker Name Role Phone WIL Benavides Unavailable PROBLEMS Type Condition ICD9-CM Code LBW28-EU Code Onset Dates Condition S tatus SNOMED Code Problem Sensorineural hearing loss of right ear H90.41 Active 33882290 Problem Obstructive sleep apnea on CPAP G47.33 Active 43135057 Problem Periodic limb movement sleep disorder G47.61 Active 619786008 Problem Iron deficiency anemia due to chronic blood loss D 50.0 Active 74179012 Problem MACHUCA (nonalcoholic steatohepatitis) K75.81 Active 339152814 Problem Vitamin B12 deficiency E53.8 Active 443343739 Problem Chronic diarrhea K52.9 Active 236 979305 Problem Vitamin D deficiency E55.9 Active 12962012 Problem BMI 50.0-59.9, adult Z68.43 Active 300470484 Problem Fatty liver K76.0 Active 32601867 7 Problem Anxiety F41.9 Active 25698157 Problem Major depressive disorder, recurrent episode, moderate F33.1 Active 221360402 Problem Chronic tension-type headache, intractable G44.221 Active 939473376 Problem Right upper quadrant pain R10.11 Acti ve 30403565 Problem Frequent falls R29.6 Active 41917 2002 Problem Crohn's disease of both small and large intestin e with complication K50.819 Active 58884827 Problem Type 2 diabetes mellitus with other specified complication E11.69 Active 135765679533 Problem Hyperlipidemia, unspecified E78.5 Ac tive 80378386 Problem Mixed stress and urge urinary incontinence N39.46 Active 292287701 Problem Sinusitis chronic, frontal J32.1 Act katlyn 52253020 Problem Seasonal allergies J30.2 Active 4 52241486 Problem Other chronic pain G89.29 Active 8 3588207 Problem Hyperlipidemia E78.5 Active 79539 004 Problem Bilateral primary osteoarthritis of knee M17.0 Active 831922652 Problem Essential hypertension I10 Active 23969380 Problem Acquired hypothyroidism E03.9 Active 658215177 Problem History of hysterectomy for benign disease Z90.710 Active 883114886 Problem Morbid (severe) obesity due to excess calories E66 .01 Active 395336827 Problem Other cirrhosis of liver K74.69 Activ e 26286581 Problem Portal hypertension K76.6 Active 48005458 ALLERGIES No Information ENCOUNTERS Encounter Location Date Diagnosis [place] [address] [facility] [id number] [address] [place] [phone] February, [facility] [address] [facility] [place] [address] February, Acute recurrent pansinusitis J01.41 [facility] [address] [facility] [place] [address] February, Acute maxillary sinusitis, recurrence no t specified J01.00 [place] [address] [address] [place] [id number] [place] [id number] Jan, Bilateral primary osteoarthr itis of knee M17.0 ; Morbid obesity E66.01 ; Viral syndrome B34.9 and Atrial dilatation, left I51.7 [place] [address] [place] [id number] [address] [place] [phone] Jan, [place] [address] [place] [id number] [address] [place] [phone] Dec, Trigeminy R00.8 [place] [address] [place] [id number] [address] [place] [id number] Dec, Essential hypertension I10 ; Morbid obesity E66.01 ; Low back pain M54.5 ; Other chronic pain G89.29 and Pain in right knee M25.561 [place] [address] [place] [id number] [address] [place] [address] Nov, [place] [address] [place] [id number] [address] [place] [address] Oct, Palpitations R00.2 [place] [address] [place] [address] 30 Oct, 2018 Encounter for Medicare felipe [...] and large intestine with complication K50.[address] [address] Oct, [place] [address] [address] 02 Oct, 2018 Crohn's disease of both smal l and large intestine with complication K50.819 [facility] [place] [id number] [place] [address] Jul, Sinusitis chronic, frontal J 32.1 ; Acute mucoid otitis media of both ears H65.113 ; Seasonal allergies J30.2 and BMI 50.0-59.9, adult Z68.43 [place] [id number] [address] [place] [address] Jul, Essential hypertension I10 ; Type 2 diabetes mellitus with other specified complication E11.69 ; BMI 50.0-59.9, adult Z68.43 ; Mixed stress and urge urinary incontinence N39.46 and Mid back pain on right side M54.[address] [address] Jun, Iron deficiency anemia due t o chronic blood loss D50.0 ; Hyperlipidemia E78.5 ; Type 2 diabetes mellitus with other specified complication E11.69 ; Vitamin B12 deficiency E53.8 and Vitamin D deficiency E55.9 [facility] [address] [place] [address] 14 Jun, 2018 Cough R05 and BMI 50.0-59.9, adult Z68.43 [place] [address] [address] Jun, [place] [address] [address] May, Iron deficiency anemia due t o chronic blood loss D50.0 ; Chronic diarrhea K52.9 ; Essential hypertension I10 ; Type 2 diabetes mellitus with other specified complication E11.69 ; Vitamin D deficiency E55.9 ; Colon stricture K56.699 ; Vitamin B12 deficiency E53.8 ; Hyperlipidemia E78.5 and BMI 50.0-59.9, adult Z68.43 [place] [address] [address] May, [place] [address] [address] Apr, Nonhealing wound of heel S91 .309A and Body mass index (BMI) of 50- 59.9 in adult Z68.43 [place] [address] [address] Mar, [place] [address] [address] Mar, BMI 50.0-59.9, adult Z68.43 ; Flank pain R10.9 and Weight loss counseling, encounter for Z71.3 [place] [address] [place] [id number] [address] [place] [address] February, [place] [address] [address] Jan, [place] [address] [place] [id number] [address] [place] [phone] Jan, [facility] [address] [place] [id number] [place] [address] Jan, Diarrhea due to staphylococc us A04.8 and Diarrhea, unspecified type R19.7 [place] [address] [address] Jan, Acquired hypothyroidism E03. 9 ; Type 2 diabetes mellitus with other specified complication E11.69 ; Hyperlipidemia E78.5 ; Essential hypertension I10 ; Major depressive disorder, recurrent episode, moderate F33.1 and Vitamin D deficiency E55.9 [place] [address] [address] Jan, Type 2 diabetes mellitus wit h other specified complication E11.69 ; Hyperlipidemia E78.5 ; Essential hypertension I10 ; Acquired hypothyroidism E03.9 ; Major depressive disorder, recurrent episode, moderate F33.1 ; Vitamin D deficiency E55.9 ; Sinus congestion R09.81 and BMI 50.0-59.9, adult Z68.43 [place] [address] [address] Dec, [place] [address] [address] Sep, Encounter for immunization Z 23 [place] [address] [address] Sep, [place] [address] [address] Sep, Vitamin B12 deficiency E53.8 [place] [address] [address] Aug, [place] [address] [address] Aug, BMI 60.0-69.9, adult Z68.44 and Acute non-recurrent maxillary sinusitis J01.00 [place] [address] [address] Aug, [place] [address] [address] Aug, Medicare annual wellness vis it, initial Z00.00 ; Screening for breast cancer Z12.31 ; BMI 40.0-44.9, adult Z68.41 and Acquired hypothyroidism E03.9 [place] [address] [facility] [id number] [address] [place] [address] Jul, Actinic keratosis L57.0 [place] [address] [place] [id number] [address] [place] [address] Jul, Actinic keratosis L57.0 [place] [address] [facility] [id number] [address] [place] [address] Jul, Type 2 diabetes mellitus wit h other specified complication E11.69 ; Actinic keratosis L57.0 and Hypothyroidism, unspecified E03.9 [place] [address] [place] [address] Jul, [place] [address] [address] Jul, [place] [address] [place] [id number] [address] [place] [address] Jul, Vitamin B12 deficiency E53.8 [place] [address] [place] [id number] Jun, Acquired hypothyroidism E03. 9 and Chronic tension-type headache, intractable G44.221 [place] [address] [place] [address] Jun, Back muscle spasm M62.830 an d BMI 50.0-59.9, adult Z68.43 [place] [address] [place] [id number] [address] [place] [address] Jun, Vitamin B12 deficiency E53.8 [place] [address] [place] [id number] [address] [place] [address] 05 Jun, 2017 Crohn's disease of both smal l and large intestine with complication K50.819 [place] [address] [address] Jun, Crohn's disease of both smal l and large intestine with complication K50.819 [place] [address] [address] May, Hyperlipidemia E78.5 ; Anxie ty F41.9 and Essential hypertension I10 [place] [address] [address] May, [place] [address] [address] May, Encounter for immunization Z 23 and Vitamin B12 deficiency E53.8 [place] [address] [address] May, [place] [address] [address] Apr, [place] [address] [address] Apr, [place] [address] [address] Apr, Crohn's disease of both smal l and large intestine with complication K50.819 [place] [address] [address] Apr, Vitamin B12 deficiency E53.8 [place] [address] [address] Apr, Crohn's disease of both smal l and large intestine with complication K50.819 and Acute pain of right shoulder M25.511 [place] [address] [address] Mar, Type 2 diabetes mellitus wit hout complication E11.9 ; Frequent falls R29.6 and Other chest pain R07.89 [place] [address] [address] Mar, [place] [address] [id number] [address] [place] [address] Mar, [facility] [address] [facility] [id number] [address] [place] [address] Mar, Type 2 diabetes mellitus wit hout complication E11.9 and Blurry vision, bilateral H53.8 [place] [address] [id number] [address] [place] [address] Mar, Vitamin B12 deficiency E53.8 [facility] [address] [id number] [address] [place] [address] Mar, Crohn's disease of both smal l and large intestine with complication K50.819 [place] [address] [facility] [id number] [address] [place] [address] February, Vitamin B12 deficiency E53.8 [place] [address] [facility] [id number] [address] [place] [address] Jan, Crohn's disease of both smal l and large intestine with complication K50.819 [place] [address] [id number] [address] [place] [address] Jan, Crohn's disease of both smal l and large intestine with complication K50.819 [facility] IN [facility] [address] [facility] [id number] [address] [place] [address] Jan, Dark brown-colored urine R82 .99 and Acute suppurative otitis media of right ear without spontaneous rupture of tympanic membrane, recurrence not specified H66.001 [place] [address] [facility] [id number] [address] [place] [address] Jan, Encounter for immunization Z 23 [place] [address] [facility] [id number] [address] [place] [address] Dec, Crohn's disease of both smal l and large intestine with complication K50.819 and Eustachian tube dysfunction, right H69.81 [facility] [address] [place] [address] [address] Dec, [place] [address] [address] Dec, Contusion of right knee, ini tial encounter S80.01XA [place] [address] [address] Dec, [place] [address] [address] Dec, Acute pain of right knee M25 .[address] [address] Dec, Iron deficiency anemia due t o chronic blood loss D50.[address] [address] Dec, Hyperlipidemia E78.5 ; Type 2 diabetes mellitus without complication E11.9 ; Vitamin B12 deficiency E53.8 ; Essential hypertension I10 ; Obstructive sleep apnea on CPAP G47.33 and Periodic limb movement sleep disorder G47.[address] [address] Nov, Type 2 diabetes mellitus wit hout complication E11.9 ; Vitamin B12 deficiency E53.8 ; Hyperlipidemia E78.5 ; Essential hypertension I10 ; Obstructive sleep apnea on CPAP G47.33 ; Periodic limb movement sleep disorder G47.61 ; Anxiety F41.9 ; Acquired hypothyroidism E03.9 and Chronic tension-type headache, intractable G44.221 [place] [address] [address] Nov, Crohn's disease of both smal l and large intestine with complication K50.[address] [address] Nov, Vitamin B12 deficiency E53.[address] [address] Oct, [place] [address] [id number] [address] [place] [address] Oct, Vitamin B12 deficiency E53.8 [facility] [address] [id number] [address] [place] [address] Sep, [facility] [address] [id number] [address] [place] [address] Sep, Vitamin B12 deficiency E53.8 [facility] [address] [id number] [address] [place] [address] Aug, [facility] [address] [id number] [address] [place] [address] Aug, Vitamin B12 deficiency E53.8 [facility] [address] [id number] [address] [place] [id number] Aug, [facility] [address] [id number] [address] [place] [phone] Jul, Elevated ALT measurement R74 .0 [facility] [address] [id number] [address] [place] [address] Jul, Hematuria R31.9 ; Acute righ t-sided thoracic back pain M54.6 ; Major depressive disorder, recurrent episode, moderate F33.1 and Elevated ALT measurement R74.0 [facility] [address] [id number] [address] [place] [address] Jul, [facility] [address] [id number] [address] [place] [address] Jul, Elevated ALT measurement R74 .0 [facility] [address] [id number] [address] [place] [address] 14 Jul, 2016 Iron deficiency anemia due t o chronic blood loss D50.0 [facility] [address] [id number] [address] [place] [address] 14 Jul, 2016 Type 2 diabetes mellitus wit hout complication E11.9 ; Acquired hypothyroidism E03.9 ; Iron deficiency anemia due to chronic blood loss D50.0 ; Hyperlipidemia E78.5 and Essential hypertension I10 [facility] [address] [id number] [address] [place] [address] 26 Jun, 2016 [facility] [address] [facility] [id number] [address] [place] [address] 20 Jun, 2016 Vitamin B12 deficiency E53.8 [facility] [address] [facility] [id number] [address] [place] [address] 16 Jun, 2016 Type 2 diabetes mellitus wit hout complication E11.9 ; Acquired hypothyroidism E03.9 ; Iron deficiency anemia due to chronic blood loss D50.0 ; Hyperlipidemia E78.5 ; Essential hypertension I10 ; Chronic tension-type headache, intractable G44.221 ; Pulsatile tinnitus, bilateral H93.13 ; Obstructive sleep apnea on CPAP G47.33 and Major depressive disorder, recurrent episode, moderate F33.1 [place] [address] [facility] [id number] [address] [place] [address] May, Vitamin B12 deficiency E53.8 [place] [address] [facility] [id number] [address] [place] [address] May, [place] [address] [facility] [id number] [address] [place] [address] Apr, Vitamin B12 deficiency E53.8 [place] [address] [facility] [id number] [address] [place] [address] Apr, [place] [address] [facility] [id number] [address] [place] [address] Mar, Chronic tension-type headach e, intractable G44.221 and Major depressive disorder, recurrent episode, moderate F33.1 [place] [address] [facility] [id number] [address] [place] [address] 14 Mar, 2016 Vitamin B12 deficiency E53.8 [facility] [address] [facility] [id number] [address] [place] [address] February, [facility] [address] [facility] [id number] [address] [place] [address] February, Vitamin B12 deficiency E53.8 [facility] [address] [id number] [address] [place] [address] February, [facility] [address] [id number] [address] [place] [address] 27 Jan, 2016 Dysuria R30.0 [facility] [address] [facility] [id number] [address] [place] [address] Jan, Type 2 diabetes mellitus wit hout complication E11.9 and Essential hypertension I10 [facility] [address] [id number] [address] [place] [address] 15 Jan, 2016 Chronic diarrhea K52.9 [facility] [address] [id number] [address] [place] [address] 13 Jan, 2016 [facility] [address] [facility] [id number] [address] [place] [id number] Jan, Chronic diarrhea K52.9 [facility] [address] [id number] [address] [place] [address] Jan, [facility] [address] [id number] [address] [place] [address] 12 Jan, 2016 Dysuria R30.0 [facility] [address] [facility] [id number] [address] [place] [address] 07 Jan, 2016 Vitamin B12 deficiency E53.8 [facility] [address] [facility] [id number] [address] [place] [id number] 07 Jan, 2016 Dysuria R30.0 and Iron defic iency anemia due to chronic blood loss D50.0 [facility] [address] [id number] [address] [place] [id number] 05 Jan, 2016 Dysuria R30.0 [facility] [address] [facility] [id number] [address] [place] [address] 04 Jan, 2016 [facility] [address] [facility] [id number] [address] [place] [address] 15 Dec, 2015 [facility] [address] [facility] [id number] [address] [place] [address] 11 Dec, 2015 Iron deficiency anemia due t o chronic blood loss D50.0 [facility] [address] [facility] [id number] [address] [place] [id number] 10 Dec, 2015 Dysuria R30.0 ; Fatigue R53. 83 ; Hyperlipidemia E78.5 and Diarrhea R19.7 [facility] [address] [facility] [id number] [address] [place] [phone] Dec, [facility] [address] [facility] [id number] [address] [place] [id number] Dec, [place] [address] [facility] [id number] [address] [place] [address] Nov, Vitamin B12 deficiency E53.8 [facility] [address] [facility] [id number] [address] [place] [id number] Oct, Vitamin B12 deficiency E53.8 [facility] [address] [facility] [id number] [address] [place] [id number] Oct, [facility] [address] [facility] [id number] [address] [place] [id number] Oct, Headache R51 [facility] [address] [facility] [id number] [address] [place] [id number] 07 Oct, 2015 Essential hypertension I10 ; Type 2 diabetes mellitus without complication E11.9 ; Vitamin B12 deficiency E53.8 ; Acquired hypothyroidism E03.9 ; Iron deficiency anemia due to chronic blood loss D50.0 and Hyperlipidemia E78.5 [facility] [address] [facility] [id number] [address] [place] [address] Sep, Essential hypertension I10 ; Vitamin B12 deficiency E53.8 ; Iron deficiency anemia due to chronic blood loss D50.0 ; Type 2 diabetes mellitus without complication E11.9 ; Hyperlipidemia E78.5 and Acquired hypothyroidism E03.9 [facility] [address] [facility] [id number] [address] [place] [id number] Sep, [facility] [address] [facility] [id number] [address] [place] [id number] Sep, [facility] [address] [place] [id number] [address] [place] [phone] Jul, [facility] [address] [facility] [id number] [address] [place] [phone] Jun, [facility] [address] [facility] [id number] [place] [id number] Jun, [facility] [address] [facility] [id number] [address] [place] [id number] Jun, Hyperlipidemia 272.4 ; Iron deficiency anemia 280.9 ; Hypothyroidism 244.9 ; Diabetes mellitus without mention of complication, type II or unspecified type, not stated as uncontrolled 250.00 and Hypertension 401.9 [facility] [id number] [place] [id number] Jun, [facility] [address] [place] [id number] [address] [place] [phone] Jun, [facility] [address] [place] [id number] [address] [place] [id number] May, Hyperlipidemia 272.4 [facility] [address] [place] [id number] [address] [place] [id number] May, [facility] [address] [place] [id number] [address] [place] [id number] May, [facility] [address] [facility] [id number] [address] [place] [id number] Apr, Diabetes mellitus without me ntion of complication, type II or unspecified type, not stated as uncontrolled 250.00 ; Hypothyroidism 244.9 ; Hyperlipidemia 272.4 ; Pain in joint, lower leg 719.46 and RUQ pain 789.01 [facility] [address] [id number] [address] [place] [address] Mar, Sinusitis 473.9 [facility] [address] [id number] [address] [place] [id number] Mar, [facility] [address] [id number] [address] [place] [phone] Mar, [facility] [address] [id number] [address] [place] [id number] Mar, Hematochezia 578.1 [facility] [address] [id number] [address] [place] [phone] February, Sinusitis 473.9 [facility] [address] [id number] [address] [place] [address], [place] [address] February, [facility] [address] [id number] [address] [place] [id number] 14 Jan, 2015 [facility] [address] [id number] [address] [place] [phone] Jan, [facility] [address] [id number] [address] [place] [phone] Dec, [facility] [address] [id number] [address] [place] [phone] Dec, [facility] [address] [id number] [address] [place] [phone] Dec, [facility] [address] [id number] [address] [place] [phone] Dec, [facility] [address] [id number] [address] [place] [id number] 24 Dec, 2014 [facility] [address] [id number] [address] [place] [phone] 24 Dec, 2014 [facility] [address] [id number] [address] [place] [id number] 23 Dec, 2014 [facility] [address] [id number] [address] [place] [phone] 13 Dec, 2014 [facility] [address] [id number] [address] [place] [phone] Dec, [facility] [address] [id number] [address] [place] [address], [place] [address] Dec, [facility] [address] [id number] [address] [place] [address], [place] [address] Dec, [facility] [address] [id number] [address] [place] [address], [place] [address] Nov, [facility] [address] [id number] [address] [place] [address], [place] [address] Nov, [facility] [address] [id number] [address] [place] [address], [place] [address] Nov, [facility] [address] [id number] [address] [place] [address], [place] [address] Nov, [facility] [address] [id number] [address] [place] [address], [place] [address] Oct, [facility] [address] [id number] [address] [place] [address], [place] [address] Oct, [facility] [address] [id number] [address] [place] [address], [place] [address] Oct, [facility] [address] [id number] [address] [place] [address], [place] [address] Oct, [facility] [address] [id number] [address] [place] [address], [place] [address] Oct, [facility] [address] [id number] [address] [place] [address], [place] [address] Oct, [facility] [address] [id number] [address] [place] [address], [place] [address] Sep, [facility] [address] [id number] [address] [place] [address], [place] [address] Sep, [facility] [address] [id number] [address] [place] [address], [place] [address] Sep, [facility] [address] [id number] [address] [place] [address], [place] [address] Sep, [facility] [address] [id number] [address] [place] [address], [place] [address] Sep, [facility] [address] [id number] [address] [place] [address], [place] [address] Sep, [facility] [address] [id number] [address] [place] [address], [place] [address] Sep, [facility] [address] [id number] [address] [place] [address], [place] [address] Aug, [facility] [address] [id number] [address] [place] [address], [place] [address] Aug, [facility] [address] [id number] [address] [place] [address], [place] [address] Aug, [facility] [address] [id number] [address] [place] [address], [place] [address] Aug, [facility] [address] [id number] [address] [place] [address], [place] [address] Aug, [facility] [address] [id number] [address] [place] [address], [place] [address] Aug, [facility] [address] [id number] [address] [place] [address], [place] [address] Aug, [facility] [address] [id number] [address] [place] [address], [place] [address] Aug, [facility] [address] [id number] [address] [place] [address], [place] [address] Aug, [facility] [address] [id number] [address] [place] [address], [place] [address] 17 Aug, 2014 [facility] [address] [id number] [address] [place] [address], [place] [address] 13 Aug, 2014 [facility] [address] [id number] [address] [place] [address], [place] [address] Aug, [facility] [address] [id number] [address] [place] [address], [place] [address] Aug, [facility] [address] [id number] [address] [place] [address], [place] [address] Aug, [facility] [address] [id number] [address] [place] [address], [place] [address] Jul, [facility] [address] [id number] [address] [place] [address], [place] [address] Jul, [facility] [address] [id number] [address] [place] [address], [place] [address] Jul, [facility] [address] [id number] [address] [place] [address], [place] [address] Jul, [facility] [address] [id number] [address] [place] [address], [place] [address] 24 Jun, 2014 [facility] [address] [id number] [address] [place] [address], [place] [address] 24 Jun, 2013 [facility] [address] [id number] [address] [place] [address], [place] [address] 23 Jun, 2013 [facility] [address] [id number] [address] [place] [address], [place] [address] 23 Jun, 2013 [facility] [address] [id number] [address] [place] [address], [place] [address] 19 Jun, 2013 [facility] [address] [id number] [address] [place] [id number] 19 Jun, 2013 [facility] [address] [id number] [address] [place] [address], [place] [address] 11 Jun, 2013 [facility] [address] [id number] [address] [place] [address], [place] [address] 11 Jun, 2013 [facility] [address] [id number] [address] [place] [address], [place] [address] 11 Jun, 2013 [facility] [address] [id number] [facility] [place] [address] 11 Jun, 2014 [facility] [address] [id number] [facility] [place] [address] Jun, [facility] [address] [id number] [facility] [place] [address] Jun, [facility] [address] [id number] [address] [place] [address], [place] [address] Jun, [facility] [address] [id number] [address] [place] [address], [place] [address] Jun, [facility] [address] [id number] [address] [place] [address], [place] [address] May, [facility] [address] [id number] [address] [place] [address], [place] [address] May, [facility] [address] [id number] [address] [place] [address], [place] [address] May, [facility] [address] [id number] [address] [place] [address], [place] [address] May, [facility] [address] [id number] [address] [place] [address], [place] [address] May, [facility] [address] [id number] [address] [place] [address], [place] [address] May, [facility] [address] [id number] [address] [place] [address], [place] [address] Apr, [facility] [address] [id number] [address] [place] [address], [place] [address] Apr, [facility] [address] [id number] [address] [place] [address], [place] [address] Apr, [facility] [address] [id number] [address] [place] [address], [place] [address] Apr, [facility] [address] [id number] [address] [place] [address], [place] [address] Apr, [facility] [address] [id number] [address] [place] [address], [place] [address] Apr, [facility] [address] [id number] [address] [place] [address], [place] [address] Apr, [facility] [address] [id number] [address] [place] [address], [place] [address] Apr, [facility] [address] [id number] [address] [place] [address], [place] [address] Apr, [facility] [address] [id number] [address] [place] [address], [place] [address] Apr, [facility] [address] [id number] [address] [place] [address], [place] [address] Apr, [facility] [address] [id number] [address] [place] [address], [place] [address] Mar, [facility] [address] [id number] [address] [place] [address], [place] [address] Mar, [facility] [address] [id number] [address] [place] [address], [place] [address] Mar, [facility] [address] [id number] [address] [place] [address], [place] [address] Mar, [facility] [address] [id number] [address] [place] [address], [place] [address] February, [facility] [address] [id number] [address] [place] [address], [place] [address] February, [facility] [address] [id number] [address] [place] [address], [place] [address] Jan, [facility] [address] [id number] [address] [place] [address], [place] [address] Jan, [facility] [address] [place] [id number] Jan, [facility] [address] [id number] [address] [place] [address], [place] [address] Jan, [facility] [address] [id number] [facility] [place] [address] Jan, [facility] [address] [id number] [facility] [place] [address] Jan, [facility] [address] [id number] [address] [place] [address], [place] [address] Jan, [facility] [address] [id number] [address] [place] [address], [place] [address] Jan, [facility] [address] [id number] [address] [place] [address], [place] [address] Jan, [facility] [address] [id number] [address] [place] [address], [place] [address] Jan, [facility] [address] [id number] [address] [place] [address], [place] [address] Jan, [facility] [address] [id number] [address] [place] [address], [place] [address] Jan, [facility] [address] [id number] [address] [place] [address], [place] [address] Jan, [facility] [address] [id number] [address] [place] [address], [place] [address] Jan, [facility] [address] [id number] [address] [place] [address], [place] [address] Jan, [facility] [address] [id number] [address] [place] [address], [place] [address] Jan, [facility] [address] [id number] [address] [place] [address], [place] [address] Jan, [facility] [address] [id number] [address] [place] [address], [place] [address] Dec, [facility] [address] [id number] [address] [place] [address], [place] [address] Dec, [facility] [address] [id number] [address] [place] [address], [place] [address] Dec, [facility] [address] [id number] [address] [place] [address], [place] [address] Dec, [facility] [address] [id number] [address] [place] [address], [place] [address] Dec, [facility] [address] [id number] [address] [place] [address], [place] [address] Dec, [facility] [address] [id number] [address] [place] [address], [place] [address] Dec, [facility] [address] [id number] [address] [place] [address], [place] [address] Nov, [facility] [address] [id number] [address] [place] [address], [place] [address] Nov, [facility] [address] [id number] [address] [place] [address], [place] [address] Nov, [facility] [address] [id number] [address] [place] [address], [place] [address] Nov, [facility] [address] [id number] [address] [place] [address], [place] [address] Nov, [facility] [address] [id number] [address] [place] [address], [place] [address] Nov, [facility] [address] [id number] [address] [place] [address], [place] [address] Nov, [facility] [address] [id number] [address] [place] [address], [place] [address] Oct, [facility] [address] [id number] [address] [place] [address], [place] [address] Oct, [facility] [address] [id number] [address] [place] [address], [place] [address] Sep, [facility] [address] [id number] [address] [place] [address], [place] [address] Sep, [facility] [address] [id number] [address] [place] [address], [place] [address] Sep, [facility] [address] [id number] [address] [place] [address], [place] [address] Sep, [facility] [address] [id number] [address] [place] [address], [place] [address] Sep, [facility] [address] [id number] [address] [place] [address], [place] [address] Sep, [facility] [address] [id number] [address] [place] [address], [place] [address] Sep, [facility] [address] [id number] [address] [place] [address], [place] [address] Sep, [facility] [address] [id number] [address] [place] [address], [place] [address] Sep, [facility] [address] [id number] [address] [place] [address], [place] [address] Sep, [facility] [address] [id number] [address] [place] [address], [place] [address] Aug, [facility] [address] [id number] [address] [place] [address] Aug, [facility] [address] [id number] [address] [place] [address] Aug, [facility] [address] [id number] [address] [place] [address] Aug, [facility] [address] [id number] [address] [place] [address], [place] [address] Aug, [facility] [address] [id number] [address] [place] [address] Jul, [facility] [address] [id number] [address] [place] [address], [place] [address] Jul, [facility] [address] [id number] [address] [place] [address] Jul, [facility] [address] [facility] [id number] [address] [place] [address] Jul, IMMUNIZATIONS No Known Immunizations SOCIAL HISTORY Never Assessed REASON FOR VISIT PLAN OF CARE VITAL SIGNS Height 62 in 2014-10-30 Weight 282.11 lbs 2014-10-30 Temperature 98.9 degrees Fahrenheit 2014-10-30 Heart Rate 80 bpm 2014-10-30 Respiratory Rate 20 2014-10-30 Blood pressure systolic 130 mmHg 2014-10-30 Blood pressure diastolic 82 mmHg 2014-10-30 MEDICATIONS Unknown Medications RESULTS No Results PROCEDURES [...]
[2020-03-16] MEDS ORDERED: ASPIRIN 81 MG CHEW (CHILDREN'S ASA) PO ONE (12:00)
--- OUTSIDE RECORDS SUMMARY | 2020-03-16 12:00 | XMS REPORT ---
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 Coach Name Role Phone Migration, Doctor Unavailable Unavailable PROBLEMS Type Condition ICD9-CM Code VKT68-IW Code Onset Dates Condition S tatus SNOMED Code Problem Sensorineural hearing loss of right ear H90.41 Active 74068862 Problem Obstructive sleep apnea on CPAP G47.33 Active 33266273 Problem Periodic limb movement sleep disorder G47.61 Active 698857290 Problem Iron deficiency anemia due to chronic blood loss D 50.0 Active 30228117 Problem MACHUCA (nonalcoholic steatohepatitis) K75.81 Active 816484542 Problem Vitamin B12 deficiency E53.8 Active 213015887 Problem Chronic diarrhea K52.9 Active 236 878808 Problem Vitamin D deficiency E55.9 Active 57988071 Problem BMI 50.0-59.9, adult Z68.43 Active 865552058 Problem Fatty liver K76.0 Active 46377746 7 Problem Anxiety F41.9 Active 65333849 Problem Major depressive disorder, recurrent episode, moderate F33.1 Active 349176440 Problem Chronic tension-type headache, intractable G44.221 Active 317076012 Problem Right upper quadrant pain R10.11 Acti ve 92763263 Problem Frequent falls R29.6 Active 11908 2001 Problem Crohn's disease of both small and large intestin e with complication K50.819 Active 51260282 Problem Type 2 diabetes mellitus with other specified complication E11.69 Active 417487010786 Problem Hyperlipidemia, unspecified E78.5 Ac tive 02763372 Problem Mixed stress and urge urinary incontinence N39.46 Active 649131151 Problem Sinusitis chronic, frontal J32.1 Act katlyn 82297665 Problem Seasonal allergies J30.2 Active 4 79236599 Problem Other chronic pain G89.29 Active 8 2527193 Problem Hyperlipidemia E78.5 Active 73121 004 Problem Bilateral primary osteoarthritis of knee M17.0 Active 825125486 Problem Essential hypertension I10 Active 80694175 Problem Acquired hypothyroidism E03.9 Active 523581686 Problem History of hysterectomy for benign disease Z90.710 Active 508679205 Problem Morbid (severe) obesity due to excess calories E66 .01 Active 278276158 Problem Other cirrhosis of liver K74.69 Activ e 99973946 Problem Portal hypertension K76.6 Active 13921211 ALLERGIES No Information ENCOUNTERS Encounter Location Date Diagnosis [facility] [address] [facility] [place] [address] February, Acute maxillary sinusitis, recurrence no t specified J01.00 [facility] [address] [facility] [facility] [id number] [address] [place] [address] 18 Jan, 2019 Bilateral primary osteoarthr itis of knee M17.0 ; Morbid obesity E66.01 ; Viral syndrome B34.9 and Atrial dilatation, left I51.7 [place] [address] [address] [facility] [id number] [address] [place] [phone] Jan, [place] [address] [place] [id number] [address] [place] [phone] Dec, Trigeminy R00.8 [place] [address] [address] [facility] [id number] [address] [place] [phone] Dec, Essential hypertension I10 ; Morbid obesity E66.01 ; Low back pain M54.5 ; Other chronic pain G89.29 and Pain in right knee M25.561 [place] [address] [place] [id number] [address] [place] [address] 22 Nov, 2018 [place] [address] [address] [facility] [id number] [address] [place] [phone] Oct, Palpitations R00.2 [place] [address] [address] [facility] [id number] [address] [place] [address] Oct, Encounter for Medicare annua l wellness [...] small and large intestine with complication K50.819 [facility] [id number] [place] [address] Oct, [place] [address] [address] Oct, Crohn's disease of both smal l and large intestine with complication K50.819 [facility] [address] [address] Jul, Sinusitis chronic, frontal J 32.1 ; Acute mucoid otitis media of both ears H65.113 ; Seasonal allergies J30.2 and BMI 50.0-59.9, adult Z68.[address] [address] Jul, Essential hypertension I10 ; Type 2 diabetes mellitus with other specified complication E11.69 ; BMI 50.0-59.9, adult Z68.43 ; Mixed stress and urge urinary incontinence N39.46 and Mid back pain on right side M54.9 [place] [address] [address] [place] [id number] [address] [place] [phone] 26 Jun, 2018 Iron deficiency anemia due t o chronic blood loss D50.0 ; Hyperlipidemia E78.5 ; Type 2 diabetes mellitus with other specified complication E11.69 ; Vitamin B12 deficiency E53.8 and Vitamin D deficiency E55.9 [facility] [address] [place] [id number] [address] [place] [address] 14 Jun, 2018 Cough R05 and BMI 50.0-59.9, adult Z68.43 [place] [address] [place] [id number] [place] [address] Jun, [place] [address] [place] [id number] [place] [address] May, Iron deficiency anemia due t o chronic blood loss D50.0 ; Chronic diarrhea K52.9 ; Essential hypertension I10 ; Type 2 diabetes mellitus with other specified complication E11.69 ; Vitamin D deficiency E55.9 ; Colon stricture K56.699 ; Vitamin B12 deficiency E53.8 ; Hyperlipidemia E78.5 and BMI 50.0-59.9, adult Z68.43 [place] [address] [address] May, [place] [address] [address] Apr, Nonhealing wound of heel S91 .309A and Body mass index (BMI) of 50- 59.9 in adult Z68.43 [place] [address] [address] Mar, [place] [address] [address] Mar, BMI 50.0-59.9, adult Z68.43 ; Flank pain R10.9 and Weight loss counseling, encounter for Z71.3 [place] [address] [address] February, [place] [address] [address] Jan, [place] [address] [address] Jan, [facility] [address] [address] Jan, Diarrhea due to staphylococc us A04.8 and Diarrhea, unspecified type R19.7 [place] [address] [address] Jan, Acquired hypothyroidism E03. 9 ; Type 2 diabetes mellitus with other specified complication E11.69 ; Hyperlipidemia E78.5 ; Essential hypertension I10 ; Major depressive disorder, recurrent episode, moderate F33.1 and Vitamin D deficiency E55.9 [place] [address] [address] Jan, 2018 Type 2 diabetes mellitus wit h other specified complication E11.69 ; Hyperlipidemia E78.5 ; Essential hypertension I10 ; Acquired hypothyroidism E03.9 ; Major depressive disorder, recurrent episode, moderate F33.1 ; Vitamin D deficiency E55.9 ; Sinus congestion R09.81 and BMI 50.0-59.9, adult Z68.43 [place] [address] [address] Dec, [place] [address] [address] Sep, Encounter for immunization Z [address] [address] Sep, [address] [address] Sep, Vitamin B12 deficiency E53.[address] [address] 24 Aug, [address] [address] Aug, BMI 60.0-69.9, adult Z68.44 and Acute non-recurrent maxillary sinusitis J01.[address] [address] 14 Aug, [address] [address] Aug, Medicare annual wellness vis it, initial Z00.00 ; Screening for breast cancer Z12.31 ; BMI 40.0-44.9, adult Z68.41 and Acquired hypothyroidism E03.[address] [address] Jul, Actinic keratosis L57.[address] [address] Jul, Actinic keratosis L57.0 [place] [address] [address] [facility] [id number] [address] [place] [address] Jul, Type 2 diabetes mellitus wit h other specified complication E11.69 ; Actinic keratosis L57.0 and Hypothyroidism, unspecified E03.9 [place] [address] [place] [id number] [address] [place] [address] Jul, [place] [address] [place] [id number] [place] [address] Jul, [place] [address] [address] Jul, Vitamin B12 deficiency E53.8 [place] [address] [place] [id number] [place] [address] Jun, Acquired hypothyroidism E03. 9 and Chronic tension-type headache, intractable G44.221 [place] [address] [place] [id number] [address] [place] [address] Jun, Back muscle spasm M62.830 an d BMI 50.0-59.9, adult Z68.43 [place] [address] [place] [id number] [address] [place] [address] Jun, Vitamin B12 deficiency E53.8 [place] [address] [place] [id number] [place] [address] Jun, Crohn's disease of both smal l and large intestine with complication K50.819 [place] [address] [address] [place] [id number] [place] [address] Jun, Crohn's disease of both smal l and large intestine with complication K50.819 [place] [address] [place] [id number] [address] [place] [address] May, Hyperlipidemia E78.5 ; Anxie ty F41.9 and Essential hypertension I10 [place] [address] [address] [place] [id number] [place] [address] May, [facility] [address] [facility] [address] [facility] [id number] [address] [place] [address] May, Encounter for immunization Z 23 and Vitamin B12 deficiency E53.8 [facility] [address] [facility] [facility] [id number] [address] [place] [address] May, [facility] [address] [facility] [address] [facility] [id number] [address] [place] [address] Apr, [place] [address] [address] [facility] [id number] [address] [place] [address] Apr, [place] [address] [address] [facility] [id number] [address] [place] [address] Apr, Crohn's disease of both smal l and large intestine with complication K50.819 [place] [address] [address] [facility] [id number] [address] [place] [address] Apr, Vitamin B12 deficiency E53.8 [place] [address] [address] [facility] [id number] [address] [place] [address] Apr, Crohn's disease of both smal l and large intestine with complication K50.819 and Acute pain of right shoulder M25.511 [place] [address] [address] [facility] [id number] [address] [place] [address] Mar, Type 2 diabetes mellitus wit hout complication E11.9 ; Frequent falls R29.6 and Other chest pain R07.89 [place] [address] [facility] [id number] [address] [place] [address] Mar, [place] [address] [address] [facility] [id number] [address] [place] [address] Mar, [place] [address] [address] [facility] [id number] [address] [place] [address] Mar, Type 2 diabetes mellitus wit hout complication E11.9 and Blurry vision, bilateral H53.8 [place] [address] [address] [facility] [id number] [address] [place] [address] Mar, Vitamin B12 deficiency E53.8 [facility] [address] [id number] [address] [place] [address] Mar, Crohn's disease of both smal l and large intestine with complication K50.819 [facility] [address] [id number] [address] [place] [address] February, Vitamin B12 deficiency E53.8 [facility] [address] [id number] [address] [place] [address] Jan, Crohn's disease of both smal l and large intestine with complication K50.819 [facility] [address] [id number] [address] [place] [address] Jan, Crohn's disease of both smal l and large intestine with complication K50.819 [facility] [address] [address] [facility] [id number] [address] [place] [address] Jan, Dark brown-colored urine R82 .99 and Acute suppurative otitis media of right ear without spontaneous rupture of tympanic membrane, recurrence not specified H66.001 [facility] [address] [facility] [facility] [id number] [address] [place] [address] Jan, Encounter for immunization Z 23 [facility] [address] [facility] [address] [facility] [id number] [address] [place] [address] Dec, Crohn's disease of both smal l and large intestine with complication K50.819 and Eustachian tube dysfunction, right H69.81 [facility] [address] [id number] [address] [place] [phone] Dec, [facility] [address] [facility] [id number] [address] [place] [address] Dec, Contusion of right knee, ini tial encounter S80.01XA [facility] [address] [id number] [address] [place] [address] Dec, [facility] [address] [place] [id number] [address] [place] [address] 13 Dec, 2016 Acute pain of right knee M25 .561 [place] [address] [address] Dec, Iron deficiency anemia due t o chronic blood loss D50.0 [place] [address] [place] [id number] [address] [place] [address] Dec, Hyperlipidemia E78.5 ; Type 2 diabetes mellitus without complication E11.9 ; Vitamin B12 deficiency E53.8 ; Essential hypertension I10 ; Obstructive sleep apnea on CPAP G47.33 and Periodic limb movement sleep disorder G47.61 [place] [address] [address] 22 Nov, 2016 Type 2 diabetes mellitus wit hout complication E11.9 ; Vitamin B12 deficiency E53.8 ; Hyperlipidemia E78.5 ; Essential hypertension I10 ; Obstructive sleep apnea on CPAP G47.33 ; Periodic limb movement sleep disorder G47.61 ; Anxiety F41.9 ; Acquired hypothyroidism E03.9 and Chronic tension-type headache, intractable G44.221 [place] [address] [place] [id number] [address] [place] [address] Nov, Crohn's disease of both smal l and large intestine with complication K50.819 [place] [id number] [place] [address] Nov, Vitamin B12 deficiency E53.8 [place] [id number] [place] [address] Oct, [place] [id number] [place] [address] Oct, Vitamin B12 deficiency E53.8 [place] [address] [place] [id number] [address] [place] [address] Sep, [place] [address] [place] [id number] [address] [place] [address] Sep, Vitamin B12 deficiency E53.8 [facility] [address] [id number] [address] [place] [address] Aug, [facility] [address] [facility] [address] [facility] [id number] [address] [place] [phone] Aug, Vitamin B12 deficiency E53.8 [facility] [address] [facility] [address] [facility] [id number] [address] [place] [address] Aug, [facility] [address] [facility] [address] [facility] [id number] [address] [place] [address] Jul, Elevated ALT measurement R74 .0 [facility] [address] [id number] [address] [place] [address] Jul, Hematuria R31.9 ; Acute righ t-sided thoracic back pain M54.6 ; Major depressive disorder, recurrent episode, moderate F33.1 and Elevated ALT measurement R74.0 [place] [address] [facility] [id number] [address] [place] [address] Jul, [facility] [address] [id number] [address] [place] [address] Jul, Elevated ALT measurement R74 .0 [facility] [address] [facility] [id number] [address] [place] [address] Jul, Iron deficiency anemia due t o chronic blood loss D50.0 [facility] [address] [facility] [address] [facility] [id number] [address] [place] [address] Jul, Type 2 diabetes mellitus wit hout complication E11.9 ; Acquired hypothyroidism E03.9 ; Iron deficiency anemia due to chronic blood loss D50.0 ; Hyperlipidemia E78.5 and Essential hypertension I10 [facility] [address] [facility] [facility] [id number] [address] [place] [address] Jun, [facility] [address] [facility] [address] [facility] [id number] [address] [place] [address] 20 Jun, 2016 Vitamin B12 deficiency E53.8 [facility] [address] [facility] [address] [facility] [id number] [address] [place] [address] Jun, Type 2 diabetes mellitus wit hout complication E11.9 ; Acquired hypothyroidism E03.9 ; Iron deficiency anemia due to chronic blood loss D50.0 ; Hyperlipidemia E78.5 ; Essential hypertension I10 ; Chronic tension-type headache, intractable G44.221 ; Pulsatile tinnitus, bilateral H93.13 ; Obstructive sleep apnea on CPAP G47.33 and Major depressive disorder, recurrent episode, moderate F33.1 [place] [address] [facility] [id number] [address] [place] [address] May, Vitamin B12 deficiency E53.8 [place] [address] [facility] [id number] [address] [place] [address] May, [place] [address] [facility] [id number] [address] [place] [address] Apr, Vitamin B12 deficiency E53.8 [place] [address] [facility] [id number] [address] [place] [address] Apr, [place] [address] [facility] [id number] [address] [place] [address] Mar, Chronic tension-type headach e, intractable G44.221 and Major depressive disorder, recurrent episode, moderate F33.1 [place] [address] [facility] [id number] [address] [place] [address] Mar, Vitamin B12 deficiency E53.8 [place] [address] [facility] [id number] [address] [place] [address] February, [place] [address] [facility] [id number] [address] [place] [address] February, Vitamin B12 deficiency E53.8 [place] [address] [facility] [id number] [address] [place] [address] February, [place] [address] [place] [id number] [address] [place] [phone] Jan, Dysuria R30.0 [place] [address] [facility] [id number] [address] [place] [address] Jan, Type 2 diabetes mellitus wit hout complication E11.9 and Essential hypertension I10 [facility] [address] [facility] [address] [facility] [id number] [address] [place] [address] 15 Jan, 2016 Chronic diarrhea K52.9 [facility] [address] [facility] [address] [facility] [id number] [address] [place] [address] 13 Jan, 2016 [facility] [address] [place] [id number] [address] [place] [address] Jan, Chronic diarrhea K52.9 [facility] [address] [facility] [facility] [id number] [address] [place] [phone] Jan, [facility] [address] [address] 12 Jan, 2016 Dysuria R30.0 [place] [address] [address] 07 Jan, 2016 Vitamin B12 deficiency E53.8 [place] [address] [address] 07 Jan, 2016 Dysuria R30.0 and Iron defic iency anemia due to chronic blood loss D50.0 [place] [id number] [place] [address] 05 Jan, 2016 Dysuria R30.0 [place] [address] [place] [id number] [address] [place] [address] 04 Jan, 2016 [facility] [id number] [place] [address] 15 Dec, 2015 [place] [address] [place] [id number] [address] [place] [address] 11 Dec, 2015 Iron deficiency anemia due t o chronic blood loss D50.0 [place] [address] [place] [id number] [address] [place] [address] 10 Dec, 2015 Dysuria R30.0 ; Fatigue R53. 83 ; Hyperlipidemia E78.5 and Diarrhea R19.7 [place] [address] [facility] [id number] [address] [place] [phone] 09 Dec, 2015 [facility] [address] [facility] [address] [facility] [id number] [address] [place] [phone] Dec, [facility] [address] [facility] [address] [facility] [id number] [address] [place] [phone] 10 Nov, 2015 Vitamin B12 deficiency E53.8 [facility] [address] [facility] [address] [facility] [id number] [address] [place] [address] Oct, Vitamin B12 deficiency E53.8 [facility] [address] [facility] [address] [facility] [id number] [address] [place] [phone] Oct, [facility] [address] [facility] [address] [facility] [id number] [address] [place] [phone] 09 Oct, 2015 Headache R51 [facility] [address] [facility] [address] [facility] [id number] [address] [place] [address] Oct, Essential hypertension I10 ; Type 2 diabetes mellitus without complication E11.9 ; Vitamin B12 deficiency E53.8 ; Acquired hypothyroidism E03.9 ; Iron deficiency anemia due to chronic blood loss D50.0 and Hyperlipidemia E78.5 [facility] [address] [facility] [address] [facility] [id number] [address] [place] [address] Sep, Essential hypertension I10 ; Vitamin B12 deficiency E53.8 ; Iron deficiency anemia due to chronic blood loss D50.0 ; Type 2 diabetes mellitus without complication E11.9 ; Hyperlipidemia E78.5 and Acquired hypothyroidism E03.9 [facility] [address] [facility] [address] [facility] [id number] [address] [place] [phone] Sep, [facility] [address] [facility] [address] [facility] [id number] [address] [place] [phone] Sep, [facility] [address] [facility] [address] [facility] [id number] [address] [place] [id number] Jul, [facility] [address] [facility] [id number] [address] [place] [id number] Jun, [facility] [address] [id number] Jun, [facility] [address] [id number] Jun, Hyperlipidemia 272.4 ; Iron deficiency anemia 280.9 ; Hypothyroidism 244.9 ; Diabetes mellitus without mention of complication, type II or unspecified type, not stated as uncontrolled 250.00 and Hypertension 401.9 [facility] [facility] [address] [address] Jun, [facility] [address] [address] Jun, [facility] [address] [address] May, Hyperlipidemia 272.4 [facility] [address] [address] May, [facility] [address] [address] May, [facility] [address] [address] Apr, Diabetes mellitus without me ntion of complication, type II or unspecified type, not stated as uncontrolled 250.00 ; Hypothyroidism 244.9 ; Hyperlipidemia 272.4 ; Pain in joint, lower leg 719.46 and RUQ pain 789.01 [facility] [address] [address] Mar, Sinusitis 473.9 [facility] [address] [address] Mar, [facility] [address] [address] Mar, [facility] [address] [address] Mar, Hematochezia 578.1 [facility] [address] [id number] [address] [place] [address], [place] [address] February, Sinusitis 473.9 [facility] [address] [id number] [address] [place] [address], [place] [address] February, [facility] [address] [id number] [address] [place] [address], [place] [address] 14 Jan, 2015 [facility] [address] [id number] [address] [place] [address], [place] [address] Jan, [facility] [address] [id number] [address] [place] [address], [place] [address] 24 Dec, 2014 [facility] [address] [id number] [address] [place] [address], [place] [address] 24 Dec, 2014 [facility] [address] [id number] [address] [place] [address], [place] [address] Dec, [facility] [address] [id number] [address] [place] [address], [place] [address] 24 Dec, 2014 [facility] [address] [id number] [address] [place] [address], [place] [address] 24 Dec, 2014 [facility] [address] [id number] [address] [place] [address], [place] [address] 24 Dec, 2014 [facility] [address] [id number] [address] [place] [address], [place] [address] Dec, [facility] [address] [id number] [address] [place] [address], [place] [address] Dec, [facility] [address] [id number] [address] [place] [address], [place] [address] Dec, [facility] [address] [id number] [address] [place] [address], [place] [address] Dec, [facility] [address] [id number] [address] [place] [address], [place] [address] Dec, [facility] [address] [id number] [address] [place] [address], [place] [address] Nov, [facility] [address] [id number] [address] [place] [address], [place] [address] Nov, [facility] [address] [id number] [address] [place] [address], [place] [address] Nov, [facility] [address] [id number] [address] [place] [address], [place] [address] Nov, [facility] [address] [id number] [address] [place] [address], [place] [address] Oct, [facility] [address] [id number] [address] [place] [address], [place] [address] Oct, [facility] [address] [id number] [address] [place] [address], [place] [address] Oct, [facility] [address] [id number] [address] [place] [address], [place] [address] Oct, [facility] [address] [id number] [address] [place] [address], [place] [address] Oct, [facility] [address] [id number] [address] [place] [address], [place] [address] Oct, [facility] [address] [id number] [address] [place] [address], [place] [address] Sep, [facility] [address] [id number] [address] [place] [address], [place] [address] Sep, [facility] [address] [id number] [address] [place] [address], [place] [address] Sep, [facility] [address] [id number] [address] [place] [address], [place] [address] Sep, [facility] [address] [id number] [address] [place] [address], [place] [address] Sep, [facility] [address] [id number] [address] [place] [address], [place] [address] Sep, [facility] [address] [id number] [address] [place] [address], [place] [address] Sep, [facility] [address] [id number] [address] [place] [address], [place] [address] Aug, [facility] [address] [id number] [address] [place] [address], [place] [address] Aug, [facility] [address] [id number] [address] [place] [address], [place] [address] Aug, [facility] [address] [id number] [address] [place] [address], [place] [address] Aug, [facility] [address] [id number] [address] [place] [address], [place] [address] Aug, [facility] [address] [id number] [address] [place] [address], [place] [address] Aug, [facility] [address] [id number] [address] [place] [address], [place] [address] Aug, [facility] [address] [id number] [address] [place] [address], [place] [address] Aug, [facility] [address] [id number] [address] [place] [address], [place] [address] Aug, [facility] [address] [id number] [address] [place] [address], [place] [address] Aug, [facility] [address] [id number] [address] [place] [address], [place] [address] Aug, [facility] [address] [id number] [address] [place] [address], [place] [address] Aug, [facility] [address] [id number] [address] [place] [address], [place] [address] Aug, [facility] [address] [id number] [address] [place] [address], [place] [address] Aug, [facility] [address] [id number] [address] [place] [address], [place] [address] Jul, [facility] [address] [id number] [address] [place] [address], [place] [address] 07 Jul, 2013 [facility] [address] [id number] [address] [place] [address], [place] [address] Jul, [facility] [address] [id number] [address] [place] [address], [place] [address] Jul, [facility] [address] [id number] [address] [place] [address], [place] [address] 24 Jun, 2013 [facility] [address] [id number] [address] [place] [address], [place] [address] 24 Jun, 2013 [facility] [address] [id number] [address] [place] [address], [place] [address] 23 Jun, 2013 [facility] [address] [id number] [address] [place] [address], [place] [address] 23 Jun, 2013 [facility] [address] [id number] [address] [place] [address], [place] [address] 19 Jun, 2013 [facility] [address] [id number] [address] [place] [address], [place] [address] 19 Jun, 2013 [facility] [address] [id number] [address] [place] [address], [place] [address] 11 Jun, 2013 [facility] [address] [id number] [address] [place] [address], [place] [address] 11 Jun, 2013 [facility] [address] [id number] [address] [place] [address] 11 Jun, 2013 [facility] [address] [id number] [address] [place] [address], [place] [address] 11 Jun, 2013 [facility] [address] [id number] [address] [place] [address], [place] [address] 10 Jun, 2013 [facility] [address] [id number] [address] [place] [address], [place] [address] 10 Jun, 2013 [facility] [address] [id number] [address] [place] [address], [place] [address] Jun, [facility] [address] [id number] [facility] [place] [address] Jun, [facility] [address] [id number] [address] [place] [address], [place] [address] May, [facility] [address] [id number] [address] [place] [address], [place] [address] May, [facility] [address] [id number] [address] [place] [address], [place] [address] May, [facility] [address] [id number] [address] [place] [address], [place] [address] May, [facility] [address] [id number] [address] [place] [address], [place] [address] May, [facility] [address] [id number] [address] [place] [address], [place] [address] May, [facility] [address] [id number] [address] [place] [address], [place] [address] Apr, [facility] [address] [id number] [address] [place] [address], [place] [address] Apr, [facility] [address] [id number] [address] [place] [address], [place] [address] Apr, [facility] [address] [id number] [address] [place] [address], [place] [address] Apr, [facility] [address] [id number] [address] [place] [address], [place] [address] Apr, [facility] [address] [id number] [address] [place] [address], [place] [address] Apr, [facility] [address] [id number] [address] [place] [address], [place] [address] Apr, [facility] [address] [id number] [address] [place] [address], [place] [address] Apr, [facility] [address] [id number] [address] [place] [address], [place] [address] Apr, [facility] [address] [id number] [facility] [address] Apr, [facility] [address] [id number] [facility] [address] Apr, [facility] [address] [id number] [address] [place] [address], [place] [address] Mar, [facility] [address] [id number] [address] [place] [address], [place] [address] Mar, [facility] [address] [id number] [address] [place] [address], [place] [address] Mar, [facility] [address] [id number] [address] [place] [address], [place] [address] Mar, [facility] [address] [id number] [address] [place] [address], [place] [address] February, [facility] [address] [id number] [address] [place] [address], [place] [address] February, [facility] [address] [id number] [address] [place] [address], [place] [address] Jan, [facility] [address] [id number] [address] [place] [address], [place] [address] Jan, [address] [id number] Jan, [facility] [address] [id number] [address] [place] [address], [place] [address] Jan, [facility] [address] [id number] [address] [place] [address], [place] [address] Jan, [facility] [address] [id number] [address] [place] [address], [place] [address] Jan, [facility] [address] [id number] [address] [place] [address], [place] [address] Jan, [facility] [address] [id number] [facility] [address] 22 Jan, 2014 [facility] [address] [id number] [facility] [address] Jan, [facility] [address] [id number] [facility] [place] [address] Jan, [facility] [address] [id number] [address] [place] [address], [place] [address] Jan, [facility] [address] [id number] [address] [place] [address], [place] [address] Jan, [facility] [address] [id number] [address] [place] [address], [place] [address] Jan, [facility] [address] [id number] [address] [place] [address], [place] [address] Jan, [facility] [address] [id number] [address] [place] [address], [place] [address] Jan, [facility] [address] [id number] [address] [place] [address], [place] [address] Jan, [facility] [address] [id number] [address] [place] [address], [place] [address] Jan, [facility] [address] [id number] [address] [place] [address], [place] [address] 18 Dec, 2013 [facility] [address] [id number] [address] [place] [address], [place] [address] 18 Dec, 2013 [facility] [address] [id number] [address] [place] [address], [place] [address] Dec, [facility] [address] [id number] [address] [place] [address], [place] [address] 12 Dec, 2013 [facility] [address] [id number] [address] [place] [address], [place] [address] 05 Dec, 2013 [facility] [address] [id number] [address] [place] [address], [place] [address] Dec, [facility] [address] [id number] [address] [place] [address], [place] [address] Dec, [facility] [address] [id number] [address] [place] [address], [place] [address] Nov, [facility] [address] [id number] [address] [place] [address], [place] [address] Nov, [facility] [address] [id number] [address] [place] [address], [place] [address] Nov, [facility] [address] [id number] [address] [place] [address], [place] [address] Nov, [facility] [address] [id number] [address] [place] [address], [place] [address] Nov, [facility] [address] [id number] [address] [place] [address], [place] [address] Nov, [facility] [address] [id number] [address] [place] [address], [place] [address] Nov, [facility] [address] [id number] [address] [place] [address], [place] [address] Oct, [facility] [address] [id number] [address] [place] [address], [place] [address] Oct, [facility] [address] [id number] [address] [place] [address], [place] [address] Sep, [facility] [address] [id number] [address] [place] [address], [place] [address] Sep, [facility] [address] [id number] [address] [place] [address], [place] [address] Sep, [facility] [address] [id number] [address] [place] [address], [place] [address] Sep, [facility] [address] [id number] [address] [place] [address], [place] [address] Sep, [facility] [address] [id number] [address] [place] [address] Sep, [facility] [address] [id number] [address] [place] [id number] Sep, [facility] [address] [id number] [address] [place] [address] Sep, [facility] [address] [id number] [address] [place] [address] Sep, [facility] [address] [id number] [address] [place] [address] Sep, [facility] [address] [id number] [address] [place] [id number] Aug, [facility] [address] [id number] [address] [place] [address] Aug, [facility] [address] [id number] [address] [place] [address] Aug, [facility] [address] [id number] [address] [place] [id number] Aug, [facility] [address] [id number] [address] [place] [address] Aug, [facility] [address] [id number] [address] [place] [id number] Jul, [facility] [address] [id number] [address] [place] [address] Jul, [facility] [address] [id number] [address] [place] [id number] Jul, [facility] [address] [id number] [address] [place] [id number] Jul, IMMUNIZATIONS No Known Immunizations SOCIAL HISTORY Never Assessed REASON FOR VISIT EMR-[facility] PLAN OF CARE VITAL SIGNS MEDICATIONS No Known Medications RESULTS No Results PROCEDURES No Known procedures INSTRUCTIONS MEDICATIONS ADMINISTERED No Known Medications MEDICAL (GENERAL) HISTORY Type Description Date Medical History type 2 diabetes Medical History post cholecystectomy 2009 Medical History gastrointestinal disorder endoscopy stre ched [...]
--- OUTSIDE RECORDS SUMMARY | 2020-03-16 12:00 | XMS REPORT ---
Author Author Ingrid, Swathi Doctor Organization [facility] Address Unknown Phone Unavailable Care Team Providers Care Route Salesman And Driver Name Role Phone Migration, Doctor Unavailable Unavailable PROBLEMS Type Condition ICD9-CM Code UZV13-GI Code Onset Dates Condition S tatus SNOMED Code Problem Sensorineural hearing loss of right ear H90.41 Active 77485279 Problem Obstructive sleep apnea on CPAP G47.33 Active 17027024 Problem Periodic limb movement sleep disorder G47.61 Active 463138231 Problem Iron deficiency anemia due to chronic blood loss D 50.0 Active 01744086 Problem MACHUCA (nonalcoholic steatohepatitis) K75.81 Active 504754355 Problem Vitamin B12 deficiency E53.8 Active 133676420 Problem Chronic diarrhea K52.9 Active 236 884024 Problem Vitamin D deficiency E55.9 Active 10482702 Problem BMI 50.0-59.9, adult Z68.43 Active 231624992 Problem Fatty liver K76.0 Active 86444086 7 Problem Anxiety F41.9 Active 57882520 Problem Major depressive disorder, recurrent episode, moderate F33.1 Active 926172871 Problem Chronic tension-type headache, intractable G44.221 Active 588127782 Problem Right upper quadrant pain R10.11 Acti ve 76253193 Problem Frequent falls R29.6 Active 60757 2001 Problem Crohn's disease of both small and large intestin e with complication K50.819 Active 53670040 Problem Type 2 diabetes mellitus with other specified complication E11.69 Active 432373052969 Problem Hyperlipidemia, unspecified E78.5 Ac tive 13478829 Problem Mixed stress and urge urinary incontinence N39.46 Active 114620359 Problem Sinusitis chronic, frontal J32.1 Act katlyn 10227274 Problem Seasonal allergies J30.2 Active 4 50500386 Problem Other chronic pain G89.29 Active 8 8081099 Problem Hyperlipidemia E78.5 Active 89737 004 Problem Bilateral primary osteoarthritis of knee M17.0 Active 672835042 Problem Essential hypertension I10 Active 20397827 Problem Acquired hypothyroidism E03.9 Active 420266470 Problem History of hysterectomy for benign disease Z90.710 Active 117592797 Problem Morbid (severe) obesity due to excess calories E66 .01 Active 421661385 Problem Other cirrhosis of liver K74.69 Activ e 93660942 Problem Portal hypertension K76.6 Active 62758035 ALLERGIES Substance Reaction Event Type Date Status Sulfa (sulfonamide Antibiotics) Unknown Non Drug Allergy 14 2014 Active Tetanus&diphtheria Toxoid Unknown Non Drug Allergy Jan, 5 Active Influenza Virus Vacc,specific Got flu and was told to never get the vaccine again Non Drug Allergy Jan, Active Lipitor abdominal pain Drug Allergy Jan, Active Bactrim Unknown Drug Allergy Jan, Active Amoxicillin Unknown Drug Allergy Jan, Active Penicillins Unknown Non Drug Allergy Jan, Active Niacin Unknown Drug Allergy Jan, Active ENCOUNTERS Encounter Location Date Diagnosis [place] [address] [address] [facility] [id number] [address] [place] [address] February, [facility] [address] [place] [address] February, Acute recurrent pansinusitis J01.41 [facility] [address] [facility] [place] [place] [address] February, Acute maxillary sinusitis, recurrence no t specified J01.00 [place] [id number] [place] [address] Jan, Bilateral primary osteoarthr itis of knee M17.0 ; Morbid obesity E66.01 ; Viral syndrome B34.9 and Atrial dilatation, left I51.7 [place] [address] [place] [id number] [address] [place] [address] Jan, [place] [address] [address] [facility] [id number] [address] [place] [address] Dec, Trigeminy R00.8 [place] [address] [facility] [id number] [address] [place] [address] Dec, Essential hypertension I10 ; Morbid obesity E66.01 ; Low back pain M54.5 ; Other chronic pain G89.29 and Pain in right knee M25.561 [facility] [address] [place] [id number] [address] [place] [address] Nov, [place] [address] [place] [id number] [address] [place] [address] Oct, Palpitations R00.2 [place] [address] [place] [id number] [address] [place] [address] Oct, Encounter for Medicare felipe wellness exam Z00.00 ; Major depressive disorder, [...] small and large intestine with complication K50.819 [place] [address] [place] [id number] [address] [place] [address] Oct, [place] [address] [address] Oct, Crohn's disease of both smal l and large intestine with complication K50.819 [facility] [address] [place] [id number] [address] [place] [address] Jul, Sinusitis chronic, frontal J 32.1 ; Acute mucoid otitis media of both ears H65.113 ; Seasonal allergies J30.2 and BMI 50.0-59.9, adult Z68.43 [place] [address] [place] [id number] [address] [place] [address] Jul, Essential hypertension I10 ; Type 2 diabetes mellitus with other specified complication E11.69 ; BMI 50.0-59.9, adult Z68.43 ; Mixed stress and urge urinary incontinence N39.46 and Mid back pain on right side M54.9 [place] [address] [place] [id number] [address] [place] [address] Jun, Iron deficiency anemia due t o chronic blood loss D50.0 ; Hyperlipidemia E78.5 ; Type 2 diabetes mellitus with other specified complication E11.69 ; Vitamin B12 deficiency E53.8 and Vitamin D deficiency E55.9 [facility] [address] [place] [id number] [address] [place] [address] Jun, Cough R05 and BMI 50.0-59.9, adult Z68.43 [facility] [address] [address] Jun, [facility] [address] [address] May, Iron deficiency anemia due t o chronic blood loss D50.0 ; Chronic diarrhea K52.9 ; Essential hypertension I10 ; Type 2 diabetes mellitus with other specified complication E11.69 ; Vitamin D deficiency E55.9 ; Colon stricture K56.699 ; Vitamin B12 deficiency E53.8 ; Hyperlipidemia E78.5 and BMI 50.0-59.9, adult Z68.43 [facility] [address] [address] May, [place] [address] [address] Apr, Nonhealing wound of heel S91 .309A and Body mass index (BMI) of 50- 59.9 in adult Z68.43 [facility] [address] [place] [id number] [address] [place] [address] Mar, [place] [address] [address] Mar, BMI 50.0-59.9, adult Z68.43 ; Flank pain R10.9 and Weight loss counseling, encounter for Z71.3 [place] [address] [place] [id number] [address] [place] [address] February, [facility] [address] [address] Jan, [facility] [address] [address] Jan, [facility] [address] [place] [id number] [address] [place] [address] Jan, Diarrhea due to staphylococc us A04.8 and Diarrhea, unspecified type R19.7 [place] [address] [address] Jan, Acquired hypothyroidism E03. 9 ; Type 2 diabetes mellitus with other specified complication E11.69 ; Hyperlipidemia E78.5 ; Essential hypertension I10 ; Major depressive disorder, recurrent episode, moderate F33.1 and Vitamin D deficiency E55.9 [place] [address] [address] Jan, Type 2 diabetes mellitus wit h other specified complication E11.69 ; Hyperlipidemia E78.5 ; Essential hypertension I10 ; Acquired hypothyroidism E03.9 ; Major depressive disorder, recurrent episode, moderate F33.1 ; Vitamin D deficiency E55.9 ; Sinus congestion R09.81 and BMI 50.0-59.9, adult Z68.43 [place] [address] [address] Dec, [place] [address] [address] Sep, Encounter for immunization Z 23 [place] [address] [address] Sep, [place] [address] [address] Sep, Vitamin B12 deficiency E53.8 [place] [address] [address] Aug, [place] [address] [address] Aug, BMI 60.0-69.9, adult Z68.44 and Acute non-recurrent maxillary sinusitis J01.00 [place] [address] [place] [id number] [address] [place] [address] 14 Aug, 2017 [place] [address] [place] [id number] [place] [address] 02 Aug, 2017 Medicare annual wellness vis it, initial Z00.00 ; Screening for breast cancer Z12.31 ; BMI 40.0-44.9, adult Z68.41 and Acquired hypothyroidism E03.9 [place] [address] [place] [id number] [address] [place] [address] Jul, Actinic keratosis L57.0 [place] [address] [place] [id number] [address] [place] [address] Jul, Actinic keratosis L57.0 [place] [address] [place] [id number] [place] [address] Jul, Type 2 diabetes mellitus wit h other specified complication E11.69 ; Actinic keratosis L57.0 and Hypothyroidism, unspecified E03.9 [place] [address] [address] Jul, [place] [address] [place] [id number] [place] [address] Jul, [place] [address] [address] Jul, Vitamin B12 deficiency E53.8 [place] [address] [place] [id number] [address] [place] [address] Jun, Acquired hypothyroidism E03. 9 and Chronic tension-type headache, intractable G44.221 [place] [address] [address] [facility] [id number] [address] [place] [address] Jun, Back muscle spasm M62.830 an d BMI 50.0-59.9, adult Z68.43 [place] [address] [place] [id number] [place] [address] Jun, Vitamin B12 deficiency E53.8 [facility] [address] [id number] [address] [place] [address] Jun, Crohn's disease of both smal l and large intestine with complication K50.819 [facility] [address] [facility] [id number] [address] [place] [address] Jun, Crohn's disease of both smal l and large intestine with complication K50.819 [facility] [address] [facility] [id number] [address] [place] [address] May, Hyperlipidemia E78.5 ; Anxie ty F41.9 and Essential hypertension I10 [facility] [address] [facility] [id number] [address] [place] [address] May, [facility] [address] [facility] [id number] [address] [place] [address] May, Encounter for immunization Z 23 and Vitamin B12 deficiency E53.8 [facility] [address] [facility] [id number] [address] [place] [address] May, [facility] [address] [facility] [id number] [address] [place] [address] Apr, [facility] [address] [facility] [id number] [address] [place] [address] Apr, [facility] [address] [facility] [id number] [address] [place] [address] Apr, Crohn's disease of both smal l and large intestine with complication K50.819 [facility] [address] [id number] [address] [place] [address] Apr, Vitamin B12 deficiency E53.8 [facility] [address] [facility] [id number] [address] [place] [address] Apr, Crohn's disease of both smal l and large intestine with complication K50.819 and Acute pain of right shoulder M25.511 [facility] [address] [place] [address] Mar, Type 2 diabetes mellitus wit hout complication E11.9 ; Frequent falls R29.6 and Other chest pain R07.89 [place] [address] [place] [id number] [address] [place] [address] 14 Mar, 2017 [place] [address] [address] Mar, [place] [address] [address] Mar, Type 2 diabetes mellitus wit hout complication E11.9 and Blurry vision, bilateral H53.8 [place] [address] [address] Mar, Vitamin B12 deficiency E53.8 [place] [address] [address] Mar, Crohn's disease of both smal l and large intestine with complication K50.819 [place] [address] [place] [id number] [address] [place] [address] February, Vitamin B12 deficiency E53.8 [place] [address] [place] [id number] [address] [place] [address] Jan, Crohn's disease of both smal l and large intestine with complication K50.819 [facility] [address] [place] [id number] [address] [place] [address] Jan, Crohn's disease of both smal l and large intestine with complication K50.819 [facility] [address] [place] [id number] [address] [place] [address] Jan, Dark brown-colored urine R82 .99 and Acute suppurative otitis media of right ear without spontaneous rupture of tympanic membrane, recurrence not specified H66.001 [facility] [address] [place] [address] Jan, Encounter for immunization Z 23 [place] [address] [facility] [id number] [address] [place] [address] Dec, Crohn's disease of both smal l and large intestine with complication K50.819 and Eustachian tube dysfunction, right H69.81 [place] [address] [place] [address] Dec, [place] [address] [address] Dec, Contusion of right knee, ini tial encounter S80.01XA [place] [address] [address] Dec, [place] [address] [address] Dec, Acute pain of right knee M25 .561 [place] [address] [address] Dec, Iron deficiency anemia due t o chronic blood loss D50.0 [place] [address] [place] [id number] [address] [place] [address] Dec, Hyperlipidemia E78.5 ; Type 2 diabetes mellitus without complication E11.9 ; Vitamin B12 deficiency E53.8 ; Essential hypertension I10 ; Obstructive sleep apnea on CPAP G47.33 and Periodic limb movement sleep disorder G47.61 [place] [address] [place] [address] Nov, Type 2 diabetes mellitus wit hout complication E11.9 ; Vitamin B12 deficiency E53.8 ; Hyperlipidemia E78.5 ; Essential hypertension I10 ; Obstructive sleep apnea on CPAP G47.33 ; Periodic limb movement sleep disorder G47.61 ; Anxiety F41.9 ; Acquired hypothyroidism E03.9 and Chronic tension-type headache, intractable G44.221 [place] [address] [place] [id number] [address] [place] [address] Nov, Crohn's disease of both smal l and large intestine with complication K50.819 [facility] [address] [id number] [address] [place] [address] 10 Nov, 2016 Vitamin B12 deficiency E53.8 [facility] [address] [id number] [address] [place] [address] Oct, [facility] [address] [id number] [address] [place] [address] Oct, Vitamin B12 deficiency E53.8 [facility] [address] [id number] [address] [place] [address] Sep, [facility] [address] [id number] [address] [place] [address] Sep, Vitamin B12 deficiency E53.8 [facility] [address] [id number] [address] [place] [address] Aug, [facility] [address] [id number] [address] [place] [address] Aug, Vitamin B12 deficiency E53.8 [facility] [address] [id number] [address] [place] [address] Aug, [facility] [address] [id number] [address] [place] [address] 24 Jul, 2016 Elevated ALT measurement R74 .0 [facility] [address] [id number] [address] [place] [address] Jul, Hematuria R31.9 ; Acute righ t-sided thoracic back pain M54.6 ; Major depressive disorder, recurrent episode, moderate F33.1 and Elevated ALT measurement R74.0 [facility] [address] [id number] [address] [place] [address] Jul, [facility] [address] [facility] [id number] [address] [place] [address] 19 Jul, 2016 Elevated ALT measurement R74 .0 [facility] [address] [id number] [address] [place] [address] 14 Jul, 2016 Iron deficiency anemia due t o chronic blood loss D50.0 [place] [address] [facility] [id number] [address] [place] [address] 14 Jul, 2016 Type 2 diabetes mellitus wit hout complication E11.9 ; Acquired hypothyroidism E03.9 ; Iron deficiency anemia due to chronic blood loss D50.0 ; Hyperlipidemia E78.5 and Essential hypertension I10 [place] [address] [place] [id number] [address] [place] [address] Jun, [place] [address] [place] [id number] [address] [place] [address] Jun, Vitamin B12 deficiency E53.8 [place] [address] [place] [id number] [address] [place] [address] 16 Jun, 2016 Type 2 diabetes mellitus wit hout complication E11.9 ; Acquired hypothyroidism E03.9 ; Iron deficiency anemia due to chronic blood loss D50.0 ; Hyperlipidemia E78.5 ; Essential hypertension I10 ; Chronic tension-type headache, intractable G44.221 ; Pulsatile tinnitus, bilateral H93.13 ; Obstructive sleep apnea on CPAP G47.33 and Major depressive disorder, recurrent episode, moderate F33.1 [place] [address] [place] [id number] [address] [place] [address] May, Vitamin B12 deficiency E53.8 [place] [address] [place] [id number] [address] [place] [address] May, [place] [address] [place] [id number] [place] [address] Apr, Vitamin B12 deficiency E53.8 [place] [address] [facility] [id number] [address] [place] [address] Apr, [place] [address] [place] [id number] [place] [address] Mar, Chronic tension-type headach e, intractable G44.221 and Major depressive disorder, recurrent episode, moderate F33.1 [place] [address] [place] [id number] [address] [place] [address] Mar, Vitamin B12 deficiency E53.8 [facility] [address] [facility] [id number] [address] [place] [address] February, [facility] [address] [facility] [id number] [address] [place] [address] February, Vitamin B12 deficiency E53.8 [facility] [address] [facility] [id number] [address] [place] [address] February, [facility] [address] [facility] [id number] [address] [place] [address] Jan, Dysuria R30.0 [facility] [address] [facility] [id number] [address] [place] [address] Jan, Type 2 diabetes mellitus wit hout complication E11.9 and Essential hypertension I10 [place] [address] [facility] [id number] [address] [place] [address] 15 Jan, 2016 Chronic diarrhea K52.9 [facility] [address] [facility] [id number] [address] [place] [address] Jan, [facility] [address] [facility] [id number] [address] [place] [address] Jan, Chronic diarrhea K52.9 [facility] [address] [facility] [id number] [address] [place] [address] Jan, [facility] [address] [facility] [id number] [address] [place] [address] Jan, Dysuria R30.0 [facility] [address] [facility] [id number] [address] [place] [address] 07 Jan, 2016 Vitamin B12 deficiency E53.8 [facility] [address] [facility] [id number] [address] [place] [address] 07 Jan, 2016 Dysuria R30.0 and Iron defic iency anemia due to chronic blood loss D50.0 [facility] [address] [facility] [id number] [address] [place] [address] 05 Jan, 2016 Dysuria R30.0 [facility] [address] [facility] [id number] [address] [place] [address] 04 Jan, 2016 [facility] [id number] [place] [address] 15 Dec, 2015 [facility] [address] [address] Dec, Iron deficiency anemia due t o chronic blood loss D50.0 [facility] [address] [facility] [id number] [address] [place] [address] 10 Dec, 2015 Dysuria R30.0 ; Fatigue R53. 83 ; Hyperlipidemia E78.5 and Diarrhea R19.7 [facility] [address] [place] [id number] [address] [place] [address] Dec, [place] [address] [address] Dec, [facility] [address] [place] [id number] [address] [place] [address] Nov, Vitamin B12 deficiency E53.8 [place] [address] [address] Oct, Vitamin B12 deficiency E53.8 [facility] [address] [place] [id number] [address] [place] [address] Oct, [facility] [address] [place] [id number] [address] [place] [address] Oct, Headache R51 [facility] [address] [place] [id number] [place] [address] Oct, Essential hypertension I10 ; Type 2 diabetes mellitus without complication E11.9 ; Vitamin B12 deficiency E53.8 ; Acquired hypothyroidism E03.9 ; Iron deficiency anemia due to chronic blood loss D50.0 and Hyperlipidemia E78.5 [place] [address] [place] [id number] [place] [address] Sep, Essential hypertension I10 ; Vitamin B12 deficiency E53.8 ; Iron deficiency anemia due to chronic blood loss D50.0 ; Type 2 diabetes mellitus without complication E11.9 ; Hyperlipidemia E78.5 and Acquired hypothyroidism E03.9 [facility] [address] [place] [id number] [place] [address] Sep, [facility] [address] [place] [id number] [address] [place] [address] Sep, [facility] [address] [address] Jul, [facility] [address] [place] [id number] [place] [address] Jun, [facility] [address] [place] [id number] [place] [address] Jun, [facility] [address] [address] Jun, Hyperlipidemia 272.4 ; Iron deficiency anemia 280.9 ; Hypothyroidism 244.9 ; Diabetes mellitus without mention of complication, type II or unspecified type, not stated as uncontrolled 250.00 and Hypertension 401.9 [facility] [address] [place] [id number] [place] [address] Jun, [facility] [address] [place] [id number] [place] [address] Jun, [facility] [address] [place] [id number] [place] [id number] May, Hyperlipidemia 272.4 [facility] [id number] [place] [id number] May, [facility] [id number] [place] [phone] May, [facility] [id number] [place], [place] [address] Apr, Diabetes mellitus without me ntion of complication, type II or unspecified type, not stated as uncontrolled 250.00 ; Hypothyroidism 244.9 ; Hyperlipidemia 272.4 ; Pain in joint, lower leg 719.46 and RUQ pain 789.01 [facility] [address] [id number] [address] [place] [address] 15 Mar, 2015 Sinusitis 473.9 [facility] [address] [id number] [address] [place] [address] Mar, [facility] [address] [id number] [address] [place] [address] Mar, [facility] [address] [id number] [address] [place] [address] Mar, Hematochezia 578.1 [facility] [address] [id number] [address] [place] [address] February, Sinusitis 473.9 [facility] [address] [id number] [address] [place] [address] February, [facility] [address] [id number] [address] [place] [address] Jan, [facility] [address] [id number] [address] [place] [address] Jan, [facility] [address] [id number] [address] [place] [address] Dec, [facility] [address] [id number] [address] [place] [address] Dec, [facility] [address] [id number] [address] [place] [address] Dec, [facility] [address] [id number] [address] [place] [address] Dec, [facility] [address] [id number] [address] [place] [address] Dec, [facility] [address] [id number] [address] [place] [address] Dec, [facility] [address] [id number] [address] [place] [address], [place] [address] Dec, [facility] [address] [id number] [address] [place] [address], [place] [address] Dec, [facility] [address] [id number] [address] [place] [address], [place] [address] Dec, [facility] [address] [id number] [address] [place] [address], [place] [address] Dec, [facility] [address] [id number] [address] [place] [address], [place] [address] Dec, [facility] [address] [id number] [address] [place] [address], [place] [address] Nov, [facility] [address] [id number] [address] [place] [address], [place] [address] Nov, [facility] [address] [id number] [address] [place] [address], [place] [address] Nov, [facility] [address] [id number] [address] [place] [address], [place] [address] Nov, [facility] [address] [id number] [address] [place] [address], [place] [address] Oct, [facility] [address] [id number] [address] [place] [address], [place] [address] Oct, [facility] [address] [id number] [address] [place] [address], [place] [address] Oct, [facility] [address] [id number] [address] [place] [address], [place] [address] Oct, [facility] [address] [id number] [address] [place] [address], [place] [address] Oct, [facility] [address] [id number] [address] [place] [address], [place] [address] Oct, [facility] [address] [id number] [address] [place] [address], [place] [address] Sep, [facility] [address] [id number] [address] [place] [address], [place] [address] Sep, [facility] [address] [id number] [address] [place] [address], [place] [address] Sep, [facility] [address] [id number] [address] [place] [address], [place] [address] Sep, [facility] [address] [id number] [address] [place] [address], [place] [address] Sep, [facility] [address] [id number] [address] [place] [address], [place] [address] Sep, [facility] [address] [id number] [address] [place] [address], [place] [address] Sep, [facility] [address] [id number] [address] [place] [address], [place] [address] Aug, [facility] [address] [id number] [address] [place] [address], [place] [address] Aug, [facility] [address] [id number] [address] [place] [address], [place] [address] Aug, [facility] [address] [id number] [address] [place] [address], [place] [address] Aug, [facility] [address] [id number] [address] [place] [address], [place] [address] Aug, [facility] [address] [id number] [address] [place] [address], [place] [address] Aug, [facility] [address] [id number] [address] [place] [address], [place] [address] Aug, [facility] [address] [id number] [address] [place] [address], [place] [address] Aug, [facility] [address] [id number] [address] [place] [address], [place] [address] 17 Aug, 2014 [facility] [address] [id number] [address] [place] [address], [place] [address] 17 Aug, 2014 [facility] [address] [id number] [address] [place] [address], [place] [address] Aug, [facility] [address] [id number] [address] [place] [address], [place] [address] Aug, [facility] [address] [id number] [address] [place] [address], [place] [address] Aug, [facility] [address] [id number] [address] [place] [address], [place] [address] Aug, [facility] [address] [id number] [address] [place] [address], [place] [address] Jul, [facility] [address] [id number] [address] [place] [address], [place] [address] Jul, [facility] [address] [id number] [address] [place] [address], [place] [address] Jul, [facility] [address] [id number] [address] [place] [address], [place] [address] Jul, [facility] [address] [id number] [address] [place] [address], [place] [address] 24 Jun, 2013 [facility] [address] [id number] [address] [place] [address], [place] [address] 24 Jun, 2013 [facility] [address] [id number] [address] [place] [address], [place] [address] 23 Jun, 2013 [facility] [address] [id number] [address] [place] [address], [place] [address] 23 Sep, 2013 [facility] [address] [id number] [address] [place] [address], [place] [address] 19 Jun, 2013 [facility] [address] [id number] [address] [place] [address], [place] [address] 19 Jun, 2013 [facility] [address] [id number] [address] [place] [address], [place] [address] 11 Jun, 2014 [facility] [address] [id number] [address] [place] [address] 11 Jun, 2013 [facility] [address] [id number] [facility] [place] [address] Jun, [facility] [address] [id number] [facility] [place] [address] 11 Jun, 2014 [facility] [address] [id number] [facility] [place] [address] Jun, 2013 [facility] [address] [id number] [facility] [place] [address] Jun, [facility] [address] [id number] [address] [place] [address], [place] [address] Jun, [facility] [address] [id number] [address] [place] [address], [place] [address] Jun, [facility] [address] [id number] [address] [place] [address], [place] [address] May, [facility] [address] [id number] [address] [place] [address], [place] [address] May, [facility] [address] [id number] [address] [place] [address], [place] [address] May, [facility] [address] [id number] [address] [place] [address], [place] [address] May, [facility] [address] [id number] [address] [place] [address], [place] [address] May, [facility] [address] [id number] [address] [place] [address], [place] [address] May, [facility] [address] [id number] [address] [place] [address], [place] [address] Apr, [facility] [address] [id number] [address] [place] [address], [place] [address] Apr, [facility] [address] [id number] [address] [place] [address] Apr, [facility] [address] [id number] [address] [place] [address] Apr, [facility] [address] [id number] [address] [place] [address] Apr, [facility] [address] [id number] [address] [place] [address], [place] [address] Apr, [facility] [address] [id number] [facility] [place] [address] Apr, [facility] [address] [id number] [address] [place] [address], [place] [address] Apr, [facility] [address] [id number] [address] [place] [address], [place] [address] Apr, [facility] [address] [id number] [address] [place] [address], [place] [address] Apr, [facility] [address] [id number] [address] [place] [address], [place] [address] Apr, [facility] [address] [id number] [address] [place] [address], [place] [address] Mar, [facility] [address] [id number] [address] [place] [address], [place] [address] Mar, [facility] [address] [id number] [address] [place] [address], [place] [address] Mar, [facility] [address] [id number] [address] [place] [address], [place] [address] Mar, [facility] [address] [id number] [address] [place] [address], [place] [address] February, [facility] [address] [id number] [address] [place] [address], [place] [address] February, [facility] [address] [id number] [address] [place] [address], [place] [address] Jan, [facility] [address] [id number] [address] [place] [address], [place] [address] Jan, [facility] [address] [id number] Jan, [facility] [address] [id number] [address] [place] [address] Jan, [facility] [address] [id number] [address] [place] [address], [place] [address] Jan, [facility] [address] [id number] [address] [place] [address], [place] [address] Jan, [facility] [address] [id number] [address] [place] [address], [place] [address] Jan, [facility] [address] [id number] [address] [place] [address], [place] [address] Jan, [facility] [address] [id number] [address] [place] [address], [place] [address] Jan, [facility] [address] [id number] [address] [place] [address], [place] [address] Jan, [facility] [address] [id number] [address] [place] [address], [place] [address] Jan, [facility] [address] [id number] [address] [place] [address], [place] [address] Jan, [facility] [address] [id number] [address] [place] [address], [place] [address] Jan, [facility] [address] [id number] [address] [place] [address], [place] [address] Jan, [facility] [address] [id number] [address] [place] [address], [place] [address] Jan, [facility] [address] [id number] [address] [place] [address], [place] [address] Jan, [facility] [address] [id number] [address] [place] [address], [place] [address] Jan, [facility] [address] [id number] [address] [place] [address], [place] [address] Dec, [facility] [address] [id number] [address] [place] [address], [place] [address] Dec, [facility] [address] [id number] [address] [place] [address], [place] [address] Dec, [facility] [address] [id number] [address] [place] [address], [place] [address] Dec, [facility] [address] [id number] [address] [place] [address], [place] [address] Dec, [facility] [address] [id number] [address] [place] [address], [place] [address] Dec, [facility] [address] [id number] [address] [place] [address], [place] [address] Dec, [facility] [address] [id number] [address] [place] [address], [place] [address] Nov, [facility] [address] [id number] [address] [place] [address], [place] [address] Nov, [facility] [address] [id number] [address] [place] [address], [place] [address] Nov, [facility] [address] [id number] [address] [place] [address], [place] [address] Nov, [facility] [address] [id number] [address] [place] [address], [place] [address] Nov, [facility] [address] [id number] [address] [place] [address], [place] [address] Nov, [facility] [address] [id number] [address] [place] [address], [place] [address] Nov, [facility] [address] [id number] [address] [place] [address], [place] [address] Oct, [facility] [address] [id number] [address] [place] [address], [place] [address] Oct, [facility] [address] [id number] [address] [place] [address], [place] [address] Sep, [facility] [address] [id number] [address] [place] [address], [place] [address] Sep, [facility] [address] [id number] [address] [place] [address], [place] [address] Sep, [facility] [address] [id number] [address] [place] [address], [place] [address] Sep, [facility] [address] [id number] [address] [place] [address], [place] [address] Sep, [facility] [address] [id number] [address] [place] [address], [place] [address] Sep, [facility] [address] [id number] [address] [place] [address], [place] [address] Sep, [facility] [address] [id number] [address] [place] [address], [place] [address] Sep, [facility] [address] [id number] [address] [place] [address], [place] [address] Sep, [facility] [address] [id number] [address] [place] [address], [place] [address] Sep, [facility] [address] [id number] [address] [place] [address], [place] [address] 30 Aug, 2013 [facility] [address] [id number] [address] [place] [address], [place] [address] Aug, [facility] [address] [id number] [address] [place] [address], [place] [address] Aug, [facility] [address] [id number] [address] [place] [address], [place] [address] 15 Aug, 2013 [facility] [address] [id number] [address] [place] [address], [place] [address] Aug, [facility] [address] [facility] [id number] [address] [place] [address] Jul, [facility] [address] [facility] [id number] [address] [place] [address] Jul, [facility] [address] [facility] [id number] [address] [place] [address] Jul, [facility] [address] [facility] [id number] [address] [place] [address] Jul, IMMUNIZATIONS No Known Immunizations SOCIAL HISTORY Never Assessed REASON FOR VISIT EMR-[facility] PLAN OF CARE VITAL SIGNS MEDICATIONS Medication Instructions Dosage Frequency Start Date End Date Duration S tatus tizanidine 4 mg 1 Tablet by Po route 2 times per day PRN for spasm as needed Dec, Active Azithromycin 250 mg 2 Tablet by Oral rou te on day 1 then take 1 daily for 4 days Oct, Active Aciphex 20 mg 1 tablet by Oral route 1 time per day 29 J , 2014 Active Zithromax Z-Miguel 250 mg 2 tablet by Oral route 1 time per day for 1 days then take 1 tab daily on days 2-5 Jul, Active Mobic 15 mg take 1 tablet (15 mg) by oral route once daily Aug, Active Nitrofurantoin Macrocrystal 100 mg 1 cap kecia by Oral route 2 times per day for 7 day(s) May, Active Zoloft 100 mg take 1.5 tablet by O ral route 1 time per day TOTAL DOSE 150 MG DAILY Jun, Active metformin 750 mg 1 Tablet by Oral rou te 2 times per day replaces metformin HCL 850mg Dec, Active Hyoscyamine Sulfate 0.125 mg take 1 tablet by Or al route 3 times per day PRN Aug, Active Aspirin 81 mg 1 Tablet by Oral route 1 time per day 16 O 2012 Active RESULTS No Results PROCEDURES No Known [...]
--- OUTSIDE RECORDS SUMMARY | 2020-03-16 12:00 | XMS REPORT ---
Author Author Swathi DORAN Organization [facility] Address [address] [place] [address] Care Team Providers Care Shearer Helper Name Role Phone BRENTON DORAN Unavailable PROBLEMS Type Condition ICD9-CM Code ICM16-YF Code Onset Dates Condition S tatus SNOMED Code Problem Sensorineural hearing loss of right ear H90.41 Active 60351666 Problem Obstructive sleep apnea on CPAP G47.33 Active 50313991 Problem Periodic limb movement sleep disorder G47.61 Active 627046018 Problem Iron deficiency anemia due to chronic blood loss D 50.0 Active 70170790 Problem MACHUCA (nonalcoholic steatohepatitis) K75.81 Active 622385076 Problem Vitamin B12 deficiency E53.8 Active 525327278 Problem Chronic diarrhea K52.9 Active 236 995852 Problem Vitamin D deficiency E55.9 Active 26407995 Problem BMI 50.0-59.9, adult Z68.43 Active 317805952 Problem Fatty liver K76.0 Active 71808123 7 Problem Anxiety F41.9 Active 26353977 Problem Major depressive disorder, recurrent episode, moderate F33.1 Active 013128842 Problem Chronic tension-type headache, intractable G44.221 Active 290684055 Problem Right upper quadrant pain R10.11 Acti ve 62978585 Problem Frequent falls R29.6 Active 57211 2002 Problem Crohn's disease of both small and large intestin e with complication K50.819 Active 24578810 Problem Type 2 diabetes mellitus with other specified complication E11.69 Active 089250613947 Problem Hyperlipidemia, unspecified E78.5 Ac tive 22851976 Problem Mixed stress and urge urinary incontinence N39.46 Active 846222828 Problem Sinusitis chronic, frontal J32.1 Act katlyn 56833642 Problem Seasonal allergies J30.2 Active 4 75647460 Problem Other chronic pain G89.29 Active 8 3154134 Problem Hyperlipidemia E78.5 Active 91616 004 Problem Bilateral primary osteoarthritis of knee M17.0 Active 958012472 Problem Essential hypertension I10 Active 14443697 Problem Acquired hypothyroidism E03.9 Active 923126968 Problem History of hysterectomy for benign disease Z90.710 Active 887698307 Problem Morbid (severe) obesity due to excess calories E66 .01 Active 233847664 Problem Other cirrhosis of liver K74.69 Activ e 55067814 Problem Portal hypertension K76.6 Active 79020034 ALLERGIES No Information ENCOUNTERS Encounter Location Date Diagnosis [place] [address] [address] Jan, Bilateral primary osteoarthr itis of knee M17.0 ; Morbid obesity E66.01 ; Viral syndrome B34.9 and Atrial dilatation, left I51.7 [place] [address] [address] Jan, [place] [address] [address] Dec, Trigeminy R00.8 [place] [address] [place] [address] Dec, Essential hypertension I10 ; Morbid obesity E66.01 ; Low back pain M54.5 ; Other chronic pain G89.29 and Pain in right knee M25.561 [place] [address] [place] [address] 22 Nov, 2018 [place] [address] [place] [id number] [place] [address] Oct, Palpitations R00.2 [place] [address] [place] [id number] [place] [address] Oct, Encounter for Medicare annua l wellness [...] K50.819 [facility] [address] [place] [address] Oct, [facility] [address] [place] [id number] [place] [address] Oct, Crohn's disease of both smal l and large intestine with complication K50.819 [facility] [address] [facility] [id number] [address] [place] [address] Jul, Sinusitis chronic, frontal J 32.1 ; Acute mucoid otitis media of both ears H65.113 ; Seasonal allergies J30.2 and BMI 50.0-59.9, adult Z68.43 [place] [address] [address] 02 Jul, 2018 Essential hypertension I10 ; Type 2 diabetes mellitus with other specified complication E11.69 ; BMI 50.0-59.9, adult Z68.43 ; Mixed stress and urge urinary incontinence N39.46 and Mid back pain on right side M54.9 [place] [address] [place] [address] 26 Jun, 2018 Iron deficiency anemia due t o chronic blood loss D50.0 ; Hyperlipidemia E78.5 ; Type 2 diabetes mellitus with other specified complication E11.69 ; Vitamin B12 deficiency E53.8 and Vitamin D deficiency E55.9 [facility] [address] [place] [id number] [address] [place] [id number] 14 Jun, 2018 Cough R05 and BMI 50.0-59.9, adult Z68.43 [place] [address] [address] Jun, [place] [address] [place] [id number] [address] [place] [address] May, Iron deficiency anemia due t o chronic blood loss D50.0 ; Chronic diarrhea K52.9 ; Essential hypertension I10 ; Type 2 diabetes mellitus with other specified complication E11.69 ; Vitamin D deficiency E55.9 ; Colon stricture K56.699 ; Vitamin B12 deficiency E53.8 ; Hyperlipidemia E78.5 and BMI 50.0-59.9, adult Z68.43 [facility] [address] [place] [id number] [place] [address] May, [place] [address] [address] Apr, Nonhealing wound of heel S91 .309A and Body mass index (BMI) of 50- 59.9 in adult Z68.43 [place] [address] [address] Mar, [place] [address] [address] Mar, BMI 50.0-59.9, adult Z68.43 ; Flank pain R10.9 and Weight loss counseling, encounter for Z71.3 [place] [address] [address] February, [place] [address] [address] Jan, [place] [address] [place] [id number] [place] [address] Jan, [facility] [address] [place] [id number] [place] [address] Jan, Diarrhea due to staphylococc us A04.8 and Diarrhea, unspecified type R19.7 [place] [address] [address] Jan, Acquired hypothyroidism E03. 9 ; Type 2 diabetes mellitus with other specified complication E11.69 ; Hyperlipidemia E78.5 ; Essential hypertension I10 ; Major depressive disorder, recurrent episode, moderate F33.1 and Vitamin D deficiency E55.9 [place] [address] [address] Jan, Type 2 diabetes mellitus wit h other specified complication E11.69 ; Hyperlipidemia E78.5 ; Essential hypertension I10 ; Acquired hypothyroidism E03.9 ; Major depressive disorder, recurrent episode, moderate F33.1 ; Vitamin D deficiency E55.9 ; Sinus congestion R09.81 and BMI 50.0-59.9, adult Z68.43 [place] [address] [address] Dec, [place] [address] [address] Sep, Encounter for immunization Z [address] [address] Sep, [place] [address] [address] Sep, Vitamin B12 deficiency E53.8 [place] [address] [address] Aug, [place] [address] [address] Aug, BMI 60.0-69.9, adult Z68.44 and Acute non-recurrent maxillary sinusitis J01.00 [place] [address] [address] Aug, [address] [address] Aug, Medicare annual wellness vis it, initial Z00.00 ; Screening for breast cancer Z12.31 ; BMI 40.0-44.9, adult Z68.41 and Acquired hypothyroidism E03.9 [place] [address] [place] [id number] [place] [address] Jul, Actinic keratosis L57.0 [place] [address] [place] [id number] [place] [address] Jul, Actinic keratosis L57.0 [place] [address] [place] [address] Jul, Type 2 diabetes mellitus wit h other specified complication E11.69 ; Actinic keratosis L57.0 and Hypothyroidism, unspecified E03.9 [place] [address] [place] [id number] [place] [address] Jul, [place] [address] [address] Jul, [place] [address] [address] Jul, Vitamin B12 deficiency E53.8 [place] [address] [address] Jun, Acquired hypothyroidism E03. 9 and Chronic tension-type headache, intractable G44.221 [place] [address] [address] Jun, Back muscle spasm M62.830 an d BMI 50.0-59.9, adult Z68.43 [place] [address] [address] Jun, Vitamin B12 deficiency E53.8 [place] [address] [place] [id number] [place] [address] Jun, Crohn's disease of both smal l and large intestine with complication K50.819 [place] [address] [place] [address] Jun, Crohn's disease of both smal l and large intestine with complication K50.819 [place] [address] [place] [id number] [address] [place] [address] May, Hyperlipidemia E78.5 ; Anxie ty F41.9 and Essential hypertension I10 [place] [address] [place] [address] May, [facility] [address] [facility] [id number] [address] [place] [address] May, Encounter for immunization Z 23 and Vitamin B12 deficiency E53.8 [place] [address] [facility] [id number] [address] [place] [address] May, [facility] [address] [facility] [id number] [address] [place] [address] Apr, [place] [address] [facility] [id number] [address] [place] [address] Apr, [place] [address] [facility] [id number] [address] [place] [address] Apr, Crohn's disease of both smal l and large intestine with complication K50.819 [place] [address] [facility] [id number] [address] [place] [address] Apr, Vitamin B12 deficiency E53.8 [place] [address] [facility] [id number] [address] [place] [address] Apr, Crohn's disease of both smal l and large intestine with complication K50.819 and Acute pain of right shoulder M25.511 [place] [address] [facility] [id number] [address] [place] [address] Mar, Type 2 diabetes mellitus wit hout complication E11.9 ; Frequent falls R29.6 and Other chest pain R07.89 [place] [address] [facility] [id number] [address] [place] [address] Mar, [place] [address] [facility] [id number] [address] [place] [address] Mar, [place] [address] [facility] [id number] [address] [place] [address] Mar, Type 2 diabetes mellitus wit hout complication E11.9 and Blurry vision, bilateral H53.8 [place] [address] [facility] [id number] [address] [place] [address] Mar, Vitamin B12 deficiency E53.8 [facility] [address] [id number] [address] [place] [address] Mar, Crohn's disease of both smal l and large intestine with complication K50.819 [facility] [address] [id number] [address] [place] [address] February, Vitamin B12 deficiency E53.8 [facility] [address] [id number] [address] [place] [address] Jan, Crohn's disease of both smal l and large intestine with complication K50.819 [facility] [address] [id number] [address] [place] [address] Jan, Crohn's disease of both smal l and large intestine with complication K50.819 [facility] [address] [facility] [id number] [address] [place] [address] Jan, Dark brown-colored urine R82 .99 and Acute suppurative otitis media of right ear without spontaneous rupture of tympanic membrane, recurrence not specified H66.001 [facility] [address] [facility] [id number] [address] [place] [address] Jan, Encounter for immunization Z 23 [facility] [address] [facility] [id number] [address] [place] [address] Dec, Crohn's disease of both smal l and large intestine with complication K50.819 and Eustachian tube dysfunction, right H69.81 [facility] [address] [id number] [address] [place] [address] Dec, [facility] [address] [id number] [address] [place] [address] Dec, Contusion of right knee, ini tial encounter S80.01XA [facility] [address] [id number] [address] [place] [address] 13 Dec, 2016 [facility] [address] [facility] [id number] [address] [place] [address] Dec, Acute pain of right knee M25 .561 [place] [address] [facility] [id number] [address] [place] [address] Dec, Iron deficiency anemia due t o chronic blood loss D50.0 [place] [address] [facility] [id number] [address] [place] [address] Dec, Hyperlipidemia E78.5 ; Type 2 diabetes mellitus without complication E11.9 ; Vitamin B12 deficiency E53.8 ; Essential hypertension I10 ; Obstructive sleep apnea on CPAP G47.33 and Periodic limb movement sleep disorder G47.61 [place] [address] [facility] [id number] [address] [place] [address] 22 Nov, 2016 Type 2 diabetes mellitus wit hout complication E11.9 ; Vitamin B12 deficiency E53.8 ; Hyperlipidemia E78.5 ; Essential hypertension I10 ; Obstructive sleep apnea on CPAP G47.33 ; Periodic limb movement sleep disorder G47.61 ; Anxiety F41.9 ; Acquired hypothyroidism E03.9 and Chronic tension-type headache, intractable G44.221 [place] [address] [facility] [id number] [address] [place] [address] Nov, Crohn's disease of both smal l and large intestine with complication K50.819 [place] [address] [place] [id number] [address] [place] [address] Nov, Vitamin B12 deficiency E53.8 [place] [address] [place] [id number] [address] [place] [address] Oct, [place] [address] [facility] [id number] [address] [place] [address] Oct, Vitamin B12 deficiency E53.8 [place] [address] [facility] [id number] [address] [place] [address] Sep, [place] [address] [place] [id number] [address] [place] [address] Sep, Vitamin B12 deficiency E53.8 [place] [address] [place] [id number] [address] [place] [address] Aug, [facility] [address] [id number] [address] [place] [address] Aug, Vitamin B12 deficiency E53.8 [facility] [address] [id number] [address] [place] [address] Aug, [facility] [address] [id number] [address] [place] [address] Jul, Elevated ALT measurement R74 .0 [facility] [address] [id number] [address] [place] [address] Jul, Hematuria R31.9 ; Acute righ t-sided thoracic back pain M54.6 ; Major depressive disorder, recurrent episode, moderate F33.1 and Elevated ALT measurement R74.0 [facility] [address] [facility] [id number] [address] [place] [id number] Jul, [facility] [address] [id number] [address] [place] [address] Jul, Elevated ALT measurement R74 .0 [facility] [address] [facility] [id number] [address] [place] [id number] Jul, Iron deficiency anemia due t o chronic blood loss D50.0 [facility] [address] [id number] [address] [place] [address] Jul, Type 2 diabetes mellitus wit hout complication E11.9 ; Acquired hypothyroidism E03.9 ; Iron deficiency anemia due to chronic blood loss D50.0 ; Hyperlipidemia E78.5 and Essential hypertension I10 [facility] [address] [id number] [address] [place] [id number] Jun, [facility] [address] [id number] [address] [place] [address] 20 Jun, 2016 Vitamin B12 deficiency E53.8 [facility] [address] [id number] [address] [place] [address] 16 Jun, 2016 Type 2 diabetes mellitus wit hout complication E11.9 ; Acquired hypothyroidism E03.9 ; Iron deficiency anemia due to chronic blood loss D50.0 ; Hyperlipidemia E78.5 ; Essential hypertension I10 ; Chronic tension-type headache, intractable G44.221 ; Pulsatile tinnitus, bilateral H93.13 ; Obstructive sleep apnea on CPAP G47.33 and Major depressive disorder, recurrent episode, moderate F33.1 [facility] [address] [id number] [address] [place] [id number] 16 May, 2016 Vitamin B12 deficiency E53.8 [facility] [address] [id number] [address] [place] [address] May, [place] [address] [id number] [address] [place] [id number] Apr, Vitamin B12 deficiency E53.8 [place] [address] [facility] [id number] [address] [place] [address] Apr, [place] [address] [facility] [id number] [address] [place] [address] Mar, Chronic tension-type headach e, intractable G44.221 and Major depressive disorder, recurrent episode, moderate F33.1 [place] [address] [facility] [id number] [address] [place] [address] Mar, Vitamin B12 deficiency E53.8 [facility] [address] [id number] [address] [place] [address] February, [place] [address] [facility] [id number] [address] [place] [address] February, Vitamin B12 deficiency E53.8 [place] [address] [id number] [address] [place] [id number] February, [place] [address] [facility] [id number] [address] [place] [id number] Jan, Dysuria R30.0 [facility] [address] [facility] [id number] [address] [place] [id number] Jan, Type 2 diabetes mellitus wit hout complication E11.9 and Essential hypertension I10 [facility] [address] [facility] [id number] [address] [place] [id number] 15 Jan, 2016 Chronic diarrhea K52.9 [facility] [address] [facility] [id number] [address] [place] [id number] 13 Jan, 2016 [facility] [address] [facility] [id number] [address] [place] [id number] 12 Jan, 2016 Chronic diarrhea K52.9 [facility] [address] [facility] [id number] [address] [place] [phone] Jan, [facility] [address] [facility] [id number] [address] [place] [id number] Jan, Dysuria R30.0 [place] [address] [place] [id number] [place] [id number] 07 Jan, 2016 Vitamin B12 deficiency E53.8 [place] [address] [place] [id number] [place] [id number] 07 Jan, 2016 Dysuria R30.0 and Iron defic iency anemia due to chronic blood loss D50.0 [place] [address] [address] 05 Jan, 2016 Dysuria R30.0 [place] [address] [place] [id number] [place] [id number] 04 Jan, 2016 [place] [address] [place] [id number] [place] [address] 15 Dec, 2015 [place] [address] [place] [id number] [address] [place] [id number] 11 Dec, 2015 Iron deficiency anemia due t o chronic blood loss D50.0 [place] [address] [place] [id number] [address] [place] [id number] 10 Dec, 2015 Dysuria R30.0 ; Fatigue R53. 83 ; Hyperlipidemia E78.5 and Diarrhea R19.7 [place] [address] [place] [id number] [place] [id number] 09 Dec, 2015 [facility] [address] [facility] [id number] [address] [place] [id number] Dec, [facility] [address] [facility] [id number] [address] [place] [id number] Nov, Vitamin B12 deficiency E53.8 [facility] [address] [facility] [id number] [address] [place] [address] Oct, Vitamin B12 deficiency E53.8 [facility] [address] [facility] [id number] [address] [place] [id number] Oct, [facility] [address] [facility] [id number] [address] [place] [id number] 09 Oct, 2015 Headache R51 [facility] [address] [facility] [id number] [address] [place] [id number] 07 Oct, 2015 Essential hypertension I10 ; Type 2 diabetes mellitus without complication E11.9 ; Vitamin B12 deficiency E53.8 ; Acquired hypothyroidism E03.9 ; Iron deficiency anemia due to chronic blood loss D50.0 and Hyperlipidemia E78.5 [facility] [address] [facility] [id number] [address] [place] [address] Sep, Essential hypertension I10 ; Vitamin B12 deficiency E53.8 ; Iron deficiency anemia due to chronic blood loss D50.0 ; Type 2 diabetes mellitus without complication E11.9 ; Hyperlipidemia E78.5 and Acquired hypothyroidism E03.9 [facility] [address] [facility] [id number] [address] [place] [id number] Sep, [facility] [address] [facility] [id number] [address] [place] [id number] Sep, [facility] [address] [facility] [id number] [address] [place] [id number] 05 Jul, 2015 [facility] [address] [facility] [id number] [address] [place] [phone] 29 Jun, 2015 [facility] [address] [facility] [id number] [address] [place] [id number] Jun, [facility] [address] [facility] [id number] [place] [id number] Jun, Hyperlipidemia 272.4 ; Iron deficiency anemia 280.9 ; Hypothyroidism 244.9 ; Diabetes mellitus without mention of complication, type II or unspecified type, not stated as uncontrolled 250.00 and Hypertension 401.9 [facility] [address] [place] [id number] [place] [phone] Jun, [facility] [address] [place] [id number] [place] [phone] Jun, [facility] [address] [place] [id number] [place] [phone] May, Hyperlipidemia 272.4 [facility] [address] [place] [id number] [place] [id number] May, [facility] [address] [id number] May, [facility] [address] [place] [id number] [place] [phone] Apr, Diabetes mellitus without me ntion of complication, type II or unspecified type, not stated as uncontrolled 250.00 ; Hypothyroidism 244.9 ; Hyperlipidemia 272.4 ; Pain in joint, lower leg 719.46 and RUQ pain 789.01 [facility] [address] [place] [id number] [place] [id number] Mar, Sinusitis 473.9 [facility] [address] [place] [id number] [address] [place] [id number] Mar, [place] [address] [id number] Mar, [facility] [address] [place] [id number] [place] [phone] Mar, Hematochezia 578.1 [facility] [address] [id number] February, Sinusitis 473.9 [facility] [facility] [address] [id number] [address] [place] [address], [place] [address] February, [facility] [address] [id number] [address] [place] [address], [place] [address] 14 Jan, 2015 [facility] [address] [id number] [address] [place] [address], [place] [address] Jan, [facility] [address] [id number] [address] [place] [address], [place] [address] Dec, [facility] [address] [id number] [address] [place] [address], [place] [address] Dec, [facility] [address] [id number] [address] [place] [address], [place] [address] Dec, [facility] [address] [id number] [address] [place] [address], [place] [address] Dec, [facility] [address] [id number] [address] [place] [address], [place] [address] Dec, [facility] [address] [id number] [address] [place] [address], [place] [address] Dec, [facility] [address] [id number] [address] [place] [address], [place] [address] Dec, [facility] [address] [id number] [address] [place] [address], [place] [address] Dec, [facility] [address] [id number] [address] [place] [address], [place] [address] Dec, [facility] [address] [id number] [address] [place] [address], [place] [address] Dec, [facility] [address] [id number] [address] [place] [address], [place] [address] Dec, [facility] [address] [id number] [address] [place] [address], [place] [address] Nov, [facility] [address] [id number] [address] [place] [address], [place] [address] Nov, [facility] [address] [id number] [address] [place] [address], [place] [address] Nov, [facility] [address] [id number] [address] [place] [address], [place] [address] Nov, [facility] [address] [id number] [address] [place] [address], [place] [address] Oct, [facility] [address] [id number] [address] [place] [address], [place] [address] Oct, [facility] [address] [id number] [address] [place] [address], [place] [address] Oct, [facility] [address] [id number] [address] [place] [address], [place] [address] Oct, [facility] [address] [id number] [address] [place] [address], [place] [address] Oct, [facility] [address] [id number] [address] [place] [address], [place] [address] Oct, [facility] [address] [id number] [address] [place] [address], [place] [address] Sep, [facility] [address] [id number] [address] [place] [address], [place] [address] Sep, [facility] [address] [id number] [address] [place] [address], [place] [address] Sep, [facility] [address] [id number] [address] [place] [address], [place] [address] Sep, [facility] [address] [id number] [address] [place] [address], [place] [address] Sep, [facility] [address] [id number] [address] [place] [address], [place] [address] Sep, [facility] [address] [id number] [address] [place] [address] [address] Sep, [facility] [address] [id number] [address] [place] [address], [place] [address] Aug, [facility] [address] [id number] [address] [place] [address], [place] [address] Aug, [facility] [address] [id number] [address] [place] [address], [place] [address] Aug, [facility] [address] [id number] [address] [place] [address], [place] [address] Aug, [facility] [address] [id number] [address] [place] [address], [place] [address] Aug, [facility] [address] [id number] [address] [place] [address], [place] [address] Aug, [facility] [address] [id number] [address] [place] [address], [place] [address] Aug, [facility] [address] [id number] [address] [place] [address], [place] [address] Aug, [facility] [address] [id number] [address] [place] [address], [place] [address] Aug, [facility] [address] [id number] [address] [place] [address], [place] [address] Aug, [facility] [address] [id number] [address] [place] [address], [place] [address] Aug, [facility] [address] [id number] [address] [place] [address], [place] [address] Aug, [facility] [address] [id number] [address] [place] [address], [place] [address] Aug, [facility] [address] [id number] [address] [place] [address], [place] [address] Aug, [facility] [address] [id number] [address] [place] [address], [place] [address] Jul, [facility] [address] [id number] [address] [place] [address], [place] [address] 07 Jul, 2013 [facility] [address] [id number] [address] [place] [address], [place] [address] 06 Jul, 2013 [facility] [address] [id number] [address] [place] [address], [place] [address] 06 Jul, 2014 [facility] [address] [id number] [address] [place] [address], [place] [address] 24 Sep, 2013 [facility] [address] [id number] [address] [place] [address], [place] [address] 24 Sep, 2013 [facility] [address] [id number] [address] [place] [address], [place] [address] 23 Jun, 2013 [facility] [address] [id number] [address] [place] [address], [place] [address] 23 Jun, 2013 [facility] [address] [id number] [address] [place] [address], [place] [address] 19 Jun, 2013 [facility] [address] [id number] [address] [place] [address], [place] [address] 19 Jun, 2013 [facility] [address] [id number] [address] [place] [address], [place] [address] 11 Jun, 2013 [facility] [address] [id number] [address] [place] [address], [place] [address] 11 Jun, 2013 [facility] [address] [id number] [address] [place] [address], [place] [address] 11 Jun, 2013 [facility] [address] [id number] [address] [place] [address], [place] [address] 11 Jun, 2013 [facility] [address] [id number] [address] [place] [address], [place] [address] 10 Jun, 2013 [facility] [address] [id number] [address] [place] [address], [place] [address] 10 Jun, 2013 [facility] [address] [id number] [address] [place] [address], [place] [address] Jun, [facility] [address] [id number] [address] [place] [address], [place] [address] Jun, [facility] [address] [id number] [address] [place] [address], [place] [address] May, [facility] [address] [id number] [address] [place] [address], [place] [address] May, [facility] [address] [id number] [address] [place] [address], [place] [address] May, [facility] [address] [id number] [address] [place] [address], [place] [address] May, [facility] [address] [id number] [address] [place] [address], [place] [address] May, [facility] [address] [id number] [address] [place] [address], [place] [address] May, [facility] [address] [id number] [address] [place] [address], [place] [address] Apr, [facility] [address] [id number] [address] [place] [address], [place] [address] Apr, [facility] [address] [id number] [address] [place] [address], [place] [address] Apr, [facility] [address] [id number] [address] [place] [address], [place] [address] Apr, [facility] [address] [id number] [address] [place] [address], [place] [address] Apr, [facility] [address] [id number] [address] [place] [address], [place] [address] Apr, [facility] [address] [id number] [address] [place] [address], [place] [address] Apr, [facility] [address] [id number] [address] [place] [address], [place] [address] Apr, [facility] [address] [id number] [address] [place] [address], [place] [address] Apr, [facility] [address] [id number] [address] [place] [address], [place] [address] Apr, [facility] [address] [id number] [address] [place] [address], [place] [address] Apr, [facility] [address] [id number] [address] [place] [address], [place] [address] Mar, [facility] [address] [id number] [address] [place] [address], [place] [address] Mar, [facility] [address] [id number] [address] [place] [address], [place] [address] Mar, [facility] [address] [id number] [address] [place] [address], [place] [address] Mar, [facility] [address] [id number] [address] [place] [address], [place] [address] February, [facility] [address] [id number] [address] [place] [address], [place] [address] February, [facility] [address] [id number] [address] [place] [address], [place] [address] Jan, [facility] [address] [id number] [address] [place] [address], [place] [address] Jan, [address] [id number] Jan, [facility] [address] [id number] [address] [place] [address], [place] [address] Jan, [facility] [address] [id number] [address] [place] [address], [place] [address] Jan, [facility] [address] [id number] [address] [place] [address], [place] [address] Jan, [facility] [address] [id number] [address] [place] [address], [place] [address] Jan, [facility] [address] [id number] [address] [place] [address], [place] [address] 22 Jan, 2014 [facility] [address] [id number] [facility] [place] [address] Jan, [facility] [address] [id number] [address] [place] [address], [place] [address] Jan, [facility] [address] [id number] [address] [place] [address], [place] [address] Jan, [facility] [address] [id number] [address] [place] [address], [place] [address] Jan, [facility] [address] [id number] [address] [place] [address], [place] [address] Jan, [facility] [address] [id number] [address] [place] [address], [place] [address] Jan, [facility] [address] [id number] [address] [place] [address], [place] [address] Jan, [facility] [address] [id number] [address] [place] [address], [place] [address] Jan, [facility] [address] [id number] [address] [place] [address], [place] [address] Jan, [facility] [address] [id number] [address] [place] [address], [place] [address] Dec, [facility] [address] [id number] [address] [place] [address], [place] [address] Dec, [facility] [address] [id number] [address] [place] [address], [place] [address] Dec, [facility] [address] [id number] [address] [place] [address], [place] [address] Dec, [facility] [address] [id number] [address] [place] [address], [place] [address] 05 Dec, 2013 [facility] [address] [id number] [address] [place] [address], [place] [address] 05 Dec, 2013 [facility] [address] [id number] [address] [place] [address], [place] [address] Dec, [facility] [address] [id number] [address] [place] [address], [place] [address] Nov, [facility] [address] [id number] [address] [place] [address], [place] [address] Nov, [facility] [address] [id number] [address] [place] [address], [place] [address] Nov, [facility] [address] [id number] [address] [place] [address], [place] [address] Nov, [facility] [address] [id number] [address] [place] [address], [place] [address] Nov, [facility] [address] [id number] [address] [place] [address], [place] [address] Nov, [facility] [address] [id number] [address] [place] [address], [place] [address] Nov, [facility] [address] [id number] [address] [place] [address], [place] [address] Oct, [facility] [address] [id number] [address] [place] [address], [place] [address] Oct, [facility] [address] [id number] [address] [place] [address], [place] [address] Sep, [facility] [address] [id number] [address] [place] [address], [place] [address] Sep, [facility] [address] [id number] [address] [place] [address], [place] [address] Sep, [facility] [address] [id number] [address] [place] [address], [place] [address] Sep, [facility] [address] [id number] [address] [place] [address], [place] [address] Sep, [facility] [address] [id number] [address] [place] [address] Sep, [facility] [address] [id number] [address] [place] [address] Sep, [facility] [address] [id number] [address] [place] [address] Sep, [facility] [address] [id number] [address] [place] [address] Sep, [facility] [address] [id number] [address] [place] [address] Sep, [facility] [address] [id number] [address] [place] [address] Aug, [facility] [address] [id number] [address] [place] [address] Aug, [facility] [address] [id number] [address] [place] [address] Aug, [facility] [address] [id number] [address] [place] [address] Aug, [facility] [address] [id number] [address] [place] [address] Aug, [facility] [address] [id number] [address] [place] [address] Jul, [facility] [address] [id number] [address] [place] [address] Jul, [facility] [address] [id number] [address] [place] [id number] Jul, [facility] [address] [id number] [address] [place] [address] Jul, IMMUNIZATIONS No Known Immunizations SOCIAL HISTORY Never Assessed REASON FOR VISIT Holter Monitor PLAN OF CARE VITAL SIGNS MEDICATIONS Unknown [...]
--- OUTSIDE RECORDS SUMMARY | 2020-03-16 12:01 | XMS REPORT ---
Author Author Ingrid, Swathi Doctor Organization [facility] Address Unknown Phone Unavailable Care Team Providers Care Peanut Grader Name Role Phone Migration, Doctor Unavailable Unavailable PROBLEMS Type Condition ICD9-CM Code [id number] Code Onset Dates Condition S tatus SNOMED Code Problem Sensorineural hearing loss of right ear H90.41 Active 60541825 Problem Obstructive sleep apnea on CPAP G47.33 Active 90166522 Problem Periodic limb movement sleep disorder G47.61 Active 358252899 Problem Fatty liver K76.0 Active 65055508 7 Problem MACHUCA (nonalcoholic steatohepatitis) K75.81 Active 041170880 Problem Hyperlipidemia E78.5 Active 60757 004 Problem Essential hypertension I10 Active 82434142 Problem BMI 50.0-59.9, adult Z68.43 Active 885853259 Problem Type 2 diabetes mellitus with other specified complication E11.69 Active 254291013582 Problem Major depressive disorder, recurrent episode, moderate F33.1 Active 571451020 Problem Acquired hypothyroidism E03.9 Active 340045023 Problem Right upper quadrant pain R10.11 Acti ve 09313876 Problem Anxiety F41.9 Active 55548416 Problem Crohn's disease of both small and large intestin e with complication K50.819 Active 86488957 Problem Chronic tension-type headache, intractable G44.221 Active 751943872 Problem Hyperlipidemia, unspecified E78.5 Ac tive 55370848 Problem Frequent falls R29.6 Active 56095 2001 Problem Vitamin D deficiency E55.9 Active 54993782 Problem Mixed stress and urge urinary incontinence N39.46 Active 828007915 Problem Sinusitis chronic, frontal J32.1 Act katlyn 20982734 Problem Portal hypertension K76.6 Active 73421699 Problem Iron deficiency anemia due to chronic blood loss D 50.0 Active 86934557 Problem Other chronic pain G89.29 Active 8 4548561 Problem Vitamin B12 deficiency E53.8 Active 827283396 Problem Chronic diarrhea K52.9 Active 236 137027 Problem Seasonal allergies J30.2 Active 4 59784336 Problem History of hysterectomy for benign disease Z90.710 Active 590437850 Problem Morbid (severe) obesity due to excess calories E66 .01 Active 647081933 Problem Other cirrhosis of liver K74.69 Activ e [id number] ALLERGIES No Information ENCOUNTERS Encounter Location Date Diagnosis [place] [id number] [place] [address] Jan, [place] [address] [address] Jan, [place] [address] [address] [place] [id number] [place] [address] Dec, Trigeminy R00.8 [place] [address] [address] Dec, Essential hypertension I10 ; Morbid obesity E66.01 ; Low back pain M54.5 ; Other chronic pain G89.29 and Pain in right knee M25.561 [place] [address] [address] [place] [id number] [place] [address] 22 Nov, 2018 [place] [address] [address] Oct, Palpitations R00.2 [place] [address] [place] [id number] [place] [address] Oct, Encounter for Medicare annua l wellness [...] large intestine with complication K50.819 [place] [address] [place] [id number] [place] [address] Oct, [place] [address] [address] Oct, Crohn's disease of both smal l and large intestine with complication K50.819 [facility] [place] [address] [address] Jul, Sinusitis chronic, frontal J 32.1 ; Acute mucoid otitis media of both ears H65.113 ; Seasonal allergies J30.2 and BMI 50.0-59.9, adult Z68.43 [place] [address] [address] Jul, Essential hypertension I10 ; Type 2 diabetes mellitus with other specified complication E11.69 ; BMI 50.0-59.9, adult Z68.43 ; Mixed stress and urge urinary incontinence N39.46 and Mid back pain on right side M54.9 [place] [address] [address] Jun, Iron deficiency anemia due t o chronic blood loss D50.0 ; Hyperlipidemia E78.5 ; Type 2 diabetes mellitus with other specified complication E11.69 ; Vitamin B12 deficiency E53.8 and Vitamin D deficiency E55.9 [facility] [place] [address] [address] Jun, Cough R05 and BMI 50.0-59.9, adult Z68.43 [place] [address] [address] Jun, [address] [address] May, Iron deficiency anemia due t o chronic blood loss D50.0 ; Chronic diarrhea K52.9 ; Essential hypertension I10 ; Type 2 diabetes mellitus with other specified complication E11.69 ; Vitamin D deficiency E55.9 ; Colon stricture K56.699 ; Vitamin B12 deficiency E53.8 ; Hyperlipidemia E78.5 and BMI 50.0-59.9, adult Z68.43 [place] [address] [address] May, [facility] [address] [address] Apr, Nonhealing wound of heel S91 .309A and Body mass index (BMI) of 50- 59.9 in adult Z68.43 [place] [address] [address] Mar, [place] [address] [address] Mar, BMI 50.0-59.9, adult Z68.43 ; Flank pain R10.9 and Weight loss counseling, encounter for Z71.3 [place] [address] [address] February, [place] [address] [address] Jan, [place] [address] [address] Jan, [facility] [address] [address] Jan, Diarrhea due to staphylococc us A04.8 and Diarrhea, unspecified type R19.[address] [address] Jan, Acquired hypothyroidism E03. 9 ; Type 2 diabetes mellitus with other specified complication E11.69 ; Hyperlipidemia E78.5 ; Essential hypertension I10 ; Major depressive disorder, recurrent episode, moderate F33.1 and Vitamin D deficiency E55.[address] [address] Jan, Type 2 diabetes mellitus wit h other specified complication E11.69 ; Hyperlipidemia E78.5 ; Essential hypertension I10 ; Acquired hypothyroidism E03.9 ; Major depressive disorder, recurrent episode, moderate F33.1 ; Vitamin D deficiency E55.9 ; Sinus congestion R09.81 and BMI 50.0-59.9, adult Z68.43 [place] [address] [place] [id number] [place] [address] Dec, [place] [address] [address] Sep, Encounter for immunization Z 23 [place] [address] [address] Sep, [place] [address] [address] Sep, Vitamin B12 deficiency E53.8 [place] [address] [address] Aug, [place] [address] [address] Aug, BMI 60.0-69.9, adult Z68.44 and Acute non-recurrent maxillary sinusitis J01.00 [place] [address] [address] 14 Aug, 2017 [place] [address] [address] 02 Aug, 2017 Medicare annual wellness vis it, initial Z00.00 ; Screening for breast cancer Z12.31 ; BMI 40.0-44.9, adult Z68.41 and Acquired hypothyroidism E03.9 [place] [address] [place] [id number] [place] [address] Jul, Actinic keratosis L57.0 [place] [address] [place] [id number] [place] [address] Jul, Actinic keratosis L57.0 [place] [address] [place] [id number] [place] [address] Jul, Type 2 diabetes mellitus wit h other specified complication E11.69 ; Actinic keratosis L57.0 and Hypothyroidism, unspecified E03.9 [place] [address] [place] [address] [place] [address] Jul, [facility] [address] [place] [id number] [place] [address] Jul, [facility] [address] [place] [id number] [place] [address] Jul, Vitamin B12 deficiency E53.8 [place] [address] [address] Jun, Acquired hypothyroidism E03. 9 and Chronic tension-type headache, intractable G44.221 [place] [address] [address] Jun, Back muscle spasm M62.830 an d BMI 50.0-59.9, adult Z68.43 [place] [address] [address] Jun, Vitamin B12 deficiency E53.8 [place] [address] [address] Jun, Crohn's disease of both smal l and large intestine with complication K50.819 [place] [address] [address] Jun, Crohn's disease of both smal l and large intestine with complication K50.819 [place] [address] [address] May, Hyperlipidemia E78.5 ; Anxie ty F41.9 and Essential hypertension I10 [place] [address] [address] May, [place] [address] [address] May, Encounter for immunization Z 23 and Vitamin B12 deficiency E53.8 [place] [address] [address] May, [facility] [address] [id number] [address] [place] [address] Apr, [place] [address] [facility] [id number] [address] [place] [address] Apr, [facility] [address] [facility] [id number] [address] [place] [address] Apr, Crohn's disease of both smal l and large intestine with complication K50.819 [place] [address] [facility] [id number] [address] [place] [address] Apr, Vitamin B12 deficiency E53.8 [place] [address] [facility] [id number] [address] [place] [address] Apr, Crohn's disease of both smal l and large intestine with complication K50.819 and Acute pain of right shoulder M25.511 [place] [address] [place] [id number] [place] [address] Mar, Type 2 diabetes mellitus wit hout complication E11.9 ; Frequent falls R29.6 and Other chest pain R07.89 [place] [address] [facility] [id number] [address] [place] [address] Mar, [place] [address] [facility] [id number] [address] [place] [address] Mar, [place] [address] [facility] [id number] [address] [place] [address] Mar, Type 2 diabetes mellitus wit hout complication E11.9 and Blurry vision, bilateral H53.8 [place] [address] [facility] [id number] [address] [place] [address] Mar, Vitamin B12 deficiency E53.8 [place] [address] [facility] [id number] [address] [place] [address] Mar, Crohn's disease of both smal l and large intestine with complication K50.819 [place] [address] [facility] [id number] [address] [place] [address] February, Vitamin B12 deficiency E53.8 [facility] [address] [id number] [address] [place] [address] Jan, Crohn's disease of both smal l and large intestine with complication K50.819 [facility] [address] [facility] [id number] [address] [place] [address] Jan, Crohn's disease of both smal l and large intestine with complication K50.819 [facility] [address] [id number] [address] [place] [address] Jan, Dark brown-colored urine R82 .99 and Acute suppurative otitis media of right ear without spontaneous rupture of tympanic membrane, recurrence not specified H66.001 [facility] [address] [facility] [id number] [address] [place] [address] Jan, Encounter for immunization Z 23 [place] [address] [facility] [id number] [address] [place] [address] Dec, Crohn's disease of both smal l and large intestine with complication K50.819 and Eustachian tube dysfunction, right H69.81 [place] [address] [facility] [id number] [address] [place] [address] Dec, [facility] [address] [facility] [id number] [address] [place] [address] 16 Dec, 2016 Contusion of right knee, ini tial encounter S80.01XA [facility] [address] [id number] [address] [place] [address] Dec, [place] [address] [facility] [id number] [address] [place] [address] Dec, Acute pain of right knee M25 .561 [place] [address] [facility] [id number] [address] [place] [address] 09 Dec, 2016 Iron deficiency anemia due t o chronic blood loss D50.0 [place] [address] [place] [id number] [place] [address] 09 Dec, 2016 Hyperlipidemia E78.5 ; Type 2 diabetes mellitus without complication E11.9 ; Vitamin B12 deficiency E53.8 ; Essential hypertension I10 ; Obstructive sleep apnea on CPAP G47.33 and Periodic limb movement sleep disorder G47.61 [facility] [address] [facility] [id number] [address] [place] [address] 22 Nov, 2016 Type 2 diabetes mellitus wit hout complication E11.9 ; Vitamin B12 deficiency E53.8 ; Hyperlipidemia E78.5 ; Essential hypertension I10 ; Obstructive sleep apnea on CPAP G47.33 ; Periodic limb movement sleep disorder G47.61 ; Anxiety F41.9 ; Acquired hypothyroidism E03.9 and Chronic tension-type headache, intractable G44.221 [place] [address] [place] [id number] [place] [address] 10 Nov, 2016 Crohn's disease of both smal l and large intestine with complication K50.819 [place] [address] [place] [address] Nov, Vitamin B12 deficiency E53.8 [place] [address] [place] [address] Oct, [place] [address] [place] [address] Oct, Vitamin B12 deficiency E53.8 [place] [address] [place] [id number] [place] [address] Sep, [facility] [address] [place] [id number] [place] [address] Sep, Vitamin B12 deficiency E53.8 [facility] [address] [place] [id number] [place] [address] Aug, [place] [address] [place] [id number] [place] [address] 14 Aug, 2016 Vitamin B12 deficiency E53.8 [place] [address] [place] [id number] [place] [address] Aug, [facility] [address] [facility] [id number] [address] [place] [address] Jul, Elevated ALT measurement R74 .0 [facility] [address] [facility] [id number] [address] [place] [address] Jul, Hematuria R31.9 ; Acute righ t-sided thoracic back pain M54.6 ; Major depressive disorder, recurrent episode, moderate F33.1 and Elevated ALT measurement R74.0 [facility] [address] [id number] [address] [place] [address] Jul, [facility] [address] [facility] [id number] [address] [place] [address] Jul, Elevated ALT measurement R74 .0 [place] [address] [facility] [id number] [address] [place] [address] Jul, Iron deficiency anemia due t o chronic blood loss D50.0 [facility] [address] [facility] [id number] [address] [place] [address] 14 Jul, 2016 Type 2 diabetes mellitus wit hout complication E11.9 ; Acquired hypothyroidism E03.9 ; Iron deficiency anemia due to chronic blood loss D50.0 ; Hyperlipidemia E78.5 and Essential hypertension I10 [place] [id number] [facility] [id number] [address] [place] [address] 26 Jun, 2016 [place] [address] [facility] [id number] [address] [place] [address] 20 Jun, 2016 Vitamin B12 deficiency E53.8 [place] [address] [facility] [id number] [address] [place] [address] 16 Jun, 2016 Type 2 diabetes mellitus wit hout complication E11.9 ; Acquired hypothyroidism E03.9 ; Iron deficiency anemia due to chronic blood loss D50.0 ; Hyperlipidemia E78.5 ; Essential hypertension I10 ; Chronic tension-type headache, intractable G44.221 ; Pulsatile tinnitus, bilateral H93.13 ; Obstructive sleep apnea on CPAP G47.33 and Major depressive disorder, recurrent episode, moderate F33.1 [facility] [address] [id number] [address] [place] [address] 16 May, 2016 Vitamin B12 deficiency E53.8 [facility] [address] [id number] [address] [place] [address] 08 May, 2016 [facility] [address] [facility] [id number] [address] [place] [address] Apr, Vitamin B12 deficiency E53.8 [facility] [address] [id number] [address] [place] [address] 05 Apr, 2016 [facility] [address] [id number] [address] [place] [address] Mar, Chronic tension-type headach e, intractable G44.221 and Major depressive disorder, recurrent episode, moderate F33.1 [facility] [address] [id number] [address] [place] [address] 14 Mar, 2016 Vitamin B12 deficiency E53.8 [facility] [address] [id number] [address] [place] [address] February, [facility] [address] [facility] [id number] [address] [place] [address] February, Vitamin B12 deficiency E53.8 [facility] [address] [facility] [id number] [address] [place] [address] February, [facility] [address] [facility] [id number] [address] [place] [address] Jan, Dysuria R30.0 [facility] [address] [facility] [id number] [address] [place] [address] Jan, Type 2 diabetes mellitus wit hout complication E11.9 and Essential hypertension I10 [facility] [address] [facility] [id number] [address] [place] [address] 15 Jan, 2016 Chronic diarrhea K52.9 [facility] [address] [facility] [id number] [address] [place] [address] 13 Jan, 2016 [facility] [address] [facility] [id number] [address] [place] [address] Jan, Chronic diarrhea K52.9 [facility] [address] [facility] [id number] [address] [place] [address] Jan, [facility] [address] [facility] [id number] [address] [place] [address] Jan, Dysuria R30.0 [facility] [address] [facility] [id number] [address] [place] [address] Jan, Vitamin B12 deficiency E53.8 [facility] [address] [facility] [id number] [address] [place] [address] 07 Jan, 2016 Dysuria R30.0 and Iron defic iency anemia due to chronic blood loss D50.0 [facility] [address] [place] [id number] [place] [address] 05 Jan, 2016 Dysuria R30.0 [facility] [address] [place] [id number] [address] [place] [address] Jan, [facility] [address] [place] [id number] [address] [place] [address] 15 Dec, 2015 [facility] [address] [place] [id number] [place] [address] Dec, Iron deficiency anemia due t o chronic blood loss D50.0 [facility] [address] [place] [id number] [place] [address] 10 Dec, 2015 Dysuria R30.0 ; Fatigue R53. 83 ; Hyperlipidemia E78.5 and Diarrhea R19.7 [facility] [address] [facility] [id number] [address] [place] [address] 09 Dec, 2015 [facility] [address] [place] [id number] [address] [place] [address] Dec, [facility] [address] [place] [address] 10 Nov, 2015 Vitamin B12 deficiency E53.8 [facility] [address] [facility] [id number] [address] [place] [address] Oct, Vitamin B12 deficiency E53.8 [facility] [address] [facility] [id number] [address] [place] [address] Oct, [facility] [address] [facility] [id number] [address] [place] [address] 09 Oct, 2015 Headache R51 [facility] [address] [facility] [id number] [address] [place] [address] 07 Oct, 2015 Essential hypertension I10 ; Type 2 diabetes mellitus without complication E11.9 ; Vitamin B12 deficiency E53.8 ; Acquired hypothyroidism E03.9 ; Iron deficiency anemia due to chronic blood loss D50.0 and Hyperlipidemia E78.5 [facility] [address] [facility] [id number] [address] [place] [address] 17 Sep, 2015 Essential hypertension I10 ; Vitamin B12 deficiency E53.8 ; Iron deficiency anemia due to chronic blood loss D50.0 ; Type 2 diabetes mellitus without complication E11.9 ; Hyperlipidemia E78.5 and Acquired hypothyroidism E03.9 [facility] [address] [place] [address] 08 Sep, 2015 [facility] [address] [facility] [id number] [address] [place] [address] Sep, [facility] [address] [place] [address] 05 Jul, 2015 [facility] [address] [facility] [id number] [address] [place] [address] 29 Jun, 2015 [facility] [address] [place] [address] 18 Jun, 2015 [facility] [address] [place] [id number] [address] [place] [address] 15 Jun, 2015 Hyperlipidemia 272.4 ; Iron deficiency anemia 280.9 ; Hypothyroidism 244.9 ; Diabetes mellitus without mention of complication, type II or unspecified type, not stated as uncontrolled 250.00 and Hypertension 401.9 [facility] [address] [id number] [address] [place] [address] Jun, [facility] [address] [id number] [address] [place] [address] Jun, [facility] [address] [facility] [id number] [address] [place] [address] May, Hyperlipidemia 272.4 [facility] [address] [id number] [address] [place] [address] May, [facility] [address] [facility] [id number] [address] [place] [address] May, [facility] [address] [facility] [id number] [address] [place] [address] Apr, Diabetes mellitus without me ntion of complication, type II or unspecified type, not stated as uncontrolled 250.00 ; Hypothyroidism 244.9 ; Hyperlipidemia 272.4 ; Pain in joint, lower leg 719.46 and RUQ pain 789.01 [facility] [address] [facility] [id number] [address] [place] [address] Mar, Sinusitis 473.9 [facility] [address] [facility] [id number] [address] [place] [address] Mar, [facility] [address] [facility] [id number] [address] [place] [address] Mar, [facility] [address] [facility] [id number] [address] [place] [address] Mar, Hematochezia 578.1 [facility] [address] [facility] [id number] [address] [place] [address] February, Sinusitis 473.9 [facility] [address] [facility] [id number] [address] [place] [address] February, [facility] [address] [facility] [id number] [address] [place] [address] Jan, [facility] [address] [id number] [address] [place] [address], [place] [address] Jan, [facility] [address] [id number] [address] [place] [address], [place] [address] 24 Dec, 2014 [facility] [address] [id number] [address] [place] [address], [place] [address] Dec, [facility] [address] [id number] [address] [place] [address], [place] [address] Dec, [facility] [address] [id number] [address] [place] [address], [place] [address] Dec, [facility] [address] [id number] [address] [place] [address], [place] [address] Dec, [facility] [address] [id number] [address] [place] [address], [place] [address] Dec, [facility] [address] [id number] [address] [place] [address], [place] [address] Dec, [facility] [address] [id number] [address] [place] [address], [place] [address] Dec, [facility] [address] [id number] [address] [place] [address], [place] [address] Dec, [facility] [address] [id number] [address] [place] [address], [place] [address] Dec, [facility] [address] [id number] [address] [place] [address], [place] [address] Dec, [facility] [address] [id number] [address] [place] [address], [place] [address] Nov, [facility] [address] [id number] [address] [place] [address], [place] [address] Nov, [facility] [address] [id number] [address] [place] [address], [place] [address] 17 Nov, 2014 [facility] [address] [id number] [address] [place] [address], [place] [address] Nov, [facility] [address] [id number] [address] [place] [address], [place] [address] Oct, [facility] [address] [id number] [address] [place] [address], [place] [address] Oct, [facility] [address] [id number] [address] [place] [address], [place] [address] Oct, [facility] [address] [id number] [address] [place] [address], [place] [address] Oct, [facility] [address] [id number] [address] [place] [address], [place] [address] Oct, [facility] [address] [id number] [address] [place] [address], [place] [address] Oct, [facility] [address] [id number] [address] [place] [address], [place] [address] Sep, [facility] [address] [id number] [address] [place] [address], [place] [address] Sep, [facility] [address] [id number] [address] [place] [address], [place] [address] Sep, [facility] [address] [id number] [address] [place] [address], [place] [address] Sep, [facility] [address] [id number] [address] [place] [address], [place] [address] Sep, [facility] [address] [id number] [address] [place] [address], [place] [address] Sep, [facility] [address] [id number] [address] [place] [address], [place] [address] Sep, [facility] [address] [id number] [address] [place] [address], [place] [address] Aug, [facility] [address] [id number] [address] [place] [address], [place] [address] Aug, [facility] [address] [id number] [address] [place] [address], [place] [address] Aug, [facility] [address] [id number] [address] [place] [address], [place] [address] Aug, [facility] [address] [id number] [address] [place] [address], [place] [address] Aug, [facility] [address] [id number] [address] [place] [address], [place] [address] Aug, [facility] [address] [id number] [address] [place] [address], [place] [address] Aug, [facility] [address] [id number] [address] [place] [address], [place] [address] Aug, [facility] [address] [id number] [address] [place] [address], [place] [address] Aug, [facility] [address] [id number] [address] [place] [address], [place] [address] Aug, [facility] [address] [id number] [address] [place] [address], [place] [address] Aug, [facility] [address] [id number] [address] [place] [address], [place] [address] Aug, [facility] [address] [id number] [address] [place] [address], [place] [address] Aug, [facility] [address] [id number] [address] [place] [address], [place] [address] Aug, [facility] [address] [id number] [address] [place] [address], [place] [address] Jul, [facility] [address] [id number] [address] [place] [address], [place] [address] Jul, [facility] [address] [id number] [address] [place] [address], [place] [address] Jul, [facility] [address] [id number] [address] [place] [address], [place] [address] 06 Jul, 2014 [facility] [address] [id number] [facility] [place] [address] 24 Jun, 2013 [facility] [address] [id number] [facility] [place] [address] 24 Jun, 2013 [facility] [address] [id number] [address] [place] [address], [place] [address] 23 Jun, 2013 [facility] [address] [id number] [address] [place] [address], [place] [address] 23 Jun, 2013 [facility] [address] [id number] [address] [place] [address], [place] [address] 19 Jun, 2013 [facility] [address] [id number] [address] [place] [address], [place] [address] 19 Jun, 2013 [facility] [address] [id number] [address] [place] [address], [place] [address] 11 Jun, 2013 [facility] [address] [id number] [address] [place] [address], [place] [address] 11 Jun, 2013 [facility] [address] [id number] [address] [place] [address], [place] [address] 11 Jun, 2013 [facility] [address] [id number] [address] [place] [address], [place] [address] 11 Jun, 2013 [facility] [address] [id number] [address] [place] [address], [place] [address] 10 Jun, 2013 [facility] [address] [id number] [address] [place] [address], [place] [address] 10 Jun, 2013 [facility] [address] [id number] [address] [place] [address], [place] [address] 09 Jun, 2013 [facility] [address] [id number] [address] [place] [address], [place] [address] 09 Jun, 2013 [facility] [address] [id number] [address] [place] [address], [place] [address] 14 May, 2014 [facility] [address] [id number] [facility] [place] [address] May, [facility] [address] [id number] [facility] [place] [address] May, [facility] [address] [id number] [facility] [place] [address] May, [facility] [address] [id number] [address] [place] [address], [place] [address] May, [facility] [address] [id number] [address] [place] [address], [place] [address] May, [facility] [address] [id number] [address] [place] [address], [place] [address] Apr, [facility] [address] [id number] [address] [place] [address], [place] [address] Apr, [facility] [address] [id number] [address] [place] [address], [place] [address] Apr, [facility] [address] [id number] [address] [place] [address], [place] [address] Apr, [facility] [address] [id number] [address] [place] [address], [place] [address] Apr, [facility] [address] [id number] [address] [place] [address], [place] [address] Apr, [facility] [address] [id number] [address] [place] [address], [place] [address] Apr, [facility] [address] [id number] [address] [place] [address], [place] [address] Apr, [facility] [address] [id number] [address] [place] [address], [place] [address] Apr, [facility] [address] [id number] [address] [place] [address], [place] [address] Apr, [facility] [address] [id number] [address] [place] [address], [place] [address] Apr, [facility] [address] [id number] [address] [place] [address], [place] [address] Mar, [facility] [address] [id number] [address] [place] [address], [place] [address] Mar, [facility] [address] [id number] [address] [place] [address], [place] [address] Mar, [facility] [address] [id number] [address] [place] [address], [place] [address] Mar, [facility] [address] [id number] [address] [place] [address], [place] [address] February, [facility] [address] [id number] [address] [place] [address], [place] [address] February, [facility] [address] [id number] [address] [place] [address], [place] [address] Jan, [facility] [address] [id number] [address] [place] [address], [place] [address] Jan, [facility] [address] [place] [id number] Jan, [facility] [address] [id number] [address] [place] [address], [place] [address] Jan, [facility] [address] [id number] [address] [place] [address], [place] [address] Jan, [facility] [address] [id number] [address] [place] [address], [place] [address] Jan, [facility] [address] [id number] [address] [place] [address], [place] [address] Jan, [facility] [address] [id number] [address] [place] [address], [place] [address] Jan, [facility] [address] [id number] [address] [place] [address], [place] [address] Jan, [facility] [address] [id number] [address] [place] [address], [place] [address] Jan, [facility] [address] [id number] [address] [place] [address], [place] [address] Jan, [facility] [address] [id number] [address] [place] [address], [place] [address] Jan, [facility] [address] [id number] [address] [place] [address], [place] [address] Jan, [facility] [address] [id number] [address] [place] [address], [place] [address] Jan, [facility] [address] [id number] [address] [place] [address], [place] [address] Jan, [facility] [address] [id number] [address] [place] [address], [place] [address] Jan, [facility] [address] [id number] [address] [place] [address], [place] [address] Jan, [facility] [address] [id number] [address] [place] [address], [place] [address] Dec, [facility] [address] [id number] [address] [place] [address], [place] [address] Dec, [facility] [address] [id number] [address] [place] [address], [place] [address] Dec, [facility] [address] [id number] [address] [place] [address], [place] [address] Dec, [facility] [address] [id number] [address] [place] [address], [place] [address] Dec, [facility] [address] [id number] [address] [place] [address], [place] [address] Dec, [facility] [address] [id number] [address] [place] [address], [place] [address] Dec, [facility] [address] [id number] [address] [place] [address], [place] [address] Nov, [facility] [address] [id number] [address] [place] [address] Nov, [facility] [address] [id number] [address] [place] [address], [place] [address] Nov, [facility] [address] [id number] [address] [place] [address], [place] [address] Nov, [facility] [address] [id number] [address] [place] [address], [place] [address] Nov, [facility] [address] [id number] [address] [place] [address], [place] [address] Nov, [facility] [address] [id number] [address] [place] [address], [place] [address] Nov, [facility] [address] [id number] [address] [place] [address], [place] [address] Oct, [facility] [address] [id number] [address] [place] [address], [place] [address] Oct, [facility] [address] [id number] [address] [place] [address], [place] [address] Sep, [facility] [address] [id number] [address] [place] [address], [place] [address] Sep, [facility] [address] [id number] [address] [place] [address], [place] [address] Sep, [facility] [address] [id number] [address] [place] [address], [place] [address] Sep, [facility] [address] [id number] [address] [place] [address], [place] [address] Sep, [facility] [address] [id number] [address] [place] [address], [place] [address] Sep, [facility] [address] [id number] [address] [place] [address], [place] [address] Sep, [facility] [address] [id number] [address] [place] [address], [place] [address] Sep, [facility] [address] [id number] [address] [place] [address] Sep, [facility] [address] [id number] [address] [place] [address] Sep, [facility] [address] [id number] [address] [place] [address] Aug, [facility] [address] [id number] [address] [place] [address] Aug, [facility] [address] [id number] [address] [place] [address] Aug, [facility] [address] [id number] [address] [place] [address] Aug, [facility] [address] [id number] [address] [place] [address] Aug, [facility] [address] [id number] [address] [place] [address] Jul, [facility] [address] [id number] [address] [place] [address] Jul, [facility] [address] [id number] [address] [place] [address] Jul, [facility] [address] [id number] [address] [place] [address] Jul, IMMUNIZATIONS No Known Immunizations SOCIAL HISTORY Never Assessed REASON FOR VISIT [facility] PLAN OF CARE VITAL SIGNS MEDICATIONS Unknown [...]
--- OUTSIDE RECORDS SUMMARY | 2020-03-16 12:01 | XMS REPORT ---
Author Author Ingrid, Swathi Doctor Organization [facility] Address Unknown Phone Unavailable Care Team Providers Care Desulfurizer Operator Name Role Phone Migration, Doctor Unavailable Unavailable PROBLEMS Type Condition ICD9-CM Code [id number] Code Onset Dates Condition S tatus SNOMED Code Problem Sensorineural hearing loss of right ear H90.41 Active 92686079 Problem Obstructive sleep apnea on CPAP G47.33 Active 93582654 Problem Periodic limb movement sleep disorder G47.61 Active 399018329 Problem Fatty liver K76.0 Active 12777291 7 Problem MACHUCA (nonalcoholic steatohepatitis) K75.81 Active 170543553 Problem Hyperlipidemia E78.5 Active 25795 004 Problem Essential hypertension I10 Active 43796927 Problem BMI 50.0-59.9, adult Z68.43 Active 904694954 Problem Type 2 diabetes mellitus with other specified complication E11.69 Active 430354367315 Problem Major depressive disorder, recurrent episode, moderate F33.1 Active 749630475 Problem Acquired hypothyroidism E03.9 Active 959773320 Problem Right upper quadrant pain R10.11 Acti ve 58679675 Problem Anxiety F41.9 Active 59699651 Problem Crohn's disease of both small and large intestin e with complication K50.819 Active 85647152 Problem Chronic tension-type headache, intractable G44.221 Active 728552613 Problem Hyperlipidemia, unspecified E78.5 Ac tive 60773449 Problem Frequent falls R29.6 Active 01213 2001 Problem Vitamin D deficiency E55.9 Active 73234157 Problem Mixed stress and urge urinary incontinence N39.46 Active 539862206 Problem Sinusitis chronic, frontal J32.1 Act katlyn 86655313 Problem Portal hypertension K76.6 Active 32493297 Problem Iron deficiency anemia due to chronic blood loss D 50.0 Active 20706672 Problem Other chronic pain G89.29 Active 8 8035439 Problem Vitamin B12 deficiency E53.8 Active 086538050 Problem Chronic diarrhea K52.9 Active 236 399921 Problem Seasonal allergies J30.2 Active 4 39532895 Problem History of hysterectomy for benign disease Z90.710 Active 466251773 Problem Morbid (severe) obesity due to excess calories E66 .01 Active 256556755 Problem Other cirrhosis of liver K74.69 Activ e 26099607 ALLERGIES No Information ENCOUNTERS Encounter Location Date Diagnosis [id number] [place] [address] Jan, [place] [address] [address] Jan, [place] [address] [address] [place] [id number] [place] [address] Dec, Trigeminy R00.8 [place] [address] [address] Dec, Essential hypertension I10 ; Morbid obesity E66.01 ; Low back pain M54.5 ; Other chronic pain G89.29 and Pain in right knee M25.561 [place] [address] [address] [place] [id number] [place] [address] 22 Nov, 2018 [place] [address] [address] Oct, Palpitations R00.2 [place] [address] [address] [place] [id number] [place] [address] Oct, Encounter for Medicare annua l wellness [...] large intestine with complication K50.819 [place] [address] [place] [id number] [place] [address] Oct, [place] [address] [address] Oct, Crohn's disease of both smal l and large intestine with complication K50.819 [facility] [place] [address] [address] Jul, Sinusitis chronic, frontal J 32.1 ; Acute mucoid otitis media of both ears H65.113 ; Seasonal allergies J30.2 and BMI 50.0-59.9, adult Z68.43 [place] [address] [address] Jul, Essential hypertension I10 ; Type 2 diabetes mellitus with other specified complication E11.69 ; BMI 50.0-59.9, adult Z68.43 ; Mixed stress and urge urinary incontinence N39.46 and Mid back pain on right side M54.9 [place] [address] [address] Jun, Iron deficiency anemia due t o chronic blood loss D50.0 ; Hyperlipidemia E78.5 ; Type 2 diabetes mellitus with other specified complication E11.69 ; Vitamin B12 deficiency E53.8 and Vitamin D deficiency E55.9 [facility] [place] [address] [address] Jun, Cough R05 and BMI 50.0-59.9, adult Z68.43 [place] [address] [address] Jun, [address] [address] May, Iron deficiency anemia due t o chronic blood loss D50.0 ; Chronic diarrhea K52.9 ; Essential hypertension I10 ; Type 2 diabetes mellitus with other specified complication E11.69 ; Vitamin D deficiency E55.9 ; Colon stricture K56.699 ; Vitamin B12 deficiency E53.8 ; Hyperlipidemia E78.5 and BMI 50.0-59.9, adult Z68.43 [place] [address] [address] May, [facility] [address] [address] Apr, Nonhealing wound of heel S91 .309A and Body mass index (BMI) of 50- 59.9 in adult Z68.43 [place] [address] [address] Mar, [place] [address] [address] Mar, BMI 50.0-59.9, adult Z68.43 ; Flank pain R10.9 and Weight loss counseling, encounter for Z71.3 [place] [address] [address] February, [place] [address] [address] Jan, [place] [address] [address] Jan, [facility] [address] [address] Jan, Diarrhea due to staphylococc us A04.8 and Diarrhea, unspecified type R19.[address] [address] Jan, Acquired hypothyroidism E03. 9 ; Type 2 diabetes mellitus with other specified complication E11.69 ; Hyperlipidemia E78.5 ; Essential hypertension I10 ; Major depressive disorder, recurrent episode, moderate F33.1 and Vitamin D deficiency E55.[address] [address] Jan, Type 2 diabetes mellitus wit h other specified complication E11.69 ; Hyperlipidemia E78.5 ; Essential hypertension I10 ; Acquired hypothyroidism E03.9 ; Major depressive disorder, recurrent episode, moderate F33.1 ; Vitamin D deficiency E55.9 ; Sinus congestion R09.81 and BMI 50.0-59.9, adult Z68.43 [place] [address] [place] [id number] [place] [address] Dec, [place] [address] [address] Sep, Encounter for immunization Z 23 [place] [address] [address] Sep, [place] [address] [address] Sep, Vitamin B12 deficiency E53.8 [place] [address] [address] Aug, [place] [address] [address] Aug, BMI 60.0-69.9, adult Z68.44 and Acute non-recurrent maxillary sinusitis J01.00 [place] [address] [address] 14 Aug, 2017 [place] [address] [address] 02 Aug, 2017 Medicare annual wellness vis it, initial Z00.00 ; Screening for breast cancer Z12.31 ; BMI 40.0-44.9, adult Z68.41 and Acquired hypothyroidism E03.9 [place] [address] [place] [id number] [place] [address] Jul, Actinic keratosis L57.0 [place] [address] [place] [id number] [place] [address] Jul, Actinic keratosis L57.0 [place] [address] [place] [id number] [place] [address] Jul, Type 2 diabetes mellitus wit h other specified complication E11.69 ; Actinic keratosis L57.0 and Hypothyroidism, unspecified E03.9 [place] [address] [address] [place] [address] [place] [address] Jul, [facility] [address] [place] [id number] [place] [address] Jul, [facility] [address] [place] [id number] [place] [address] Jul, Vitamin B12 deficiency E53.8 [place] [address] [address] Jun, Acquired hypothyroidism E03. 9 and Chronic tension-type headache, intractable G44.221 [place] [address] [address] Jun, Back muscle spasm M62.830 an d BMI 50.0-59.9, adult Z68.43 [place] [address] [address] Jun, Vitamin B12 deficiency E53.8 [place] [address] [address] Jun, Crohn's disease of both smal l and large intestine with complication K50.819 [place] [address] [address] Jun, Crohn's disease of both smal l and large intestine with complication K50.819 [place] [address] [address] May, Hyperlipidemia E78.5 ; Anxie ty F41.9 and Essential hypertension I10 [place] [address] [address] May, [place] [address] [address] May, Encounter for immunization Z 23 and Vitamin B12 deficiency E53.8 [place] [address] [address] May, [facility] [address] [id number] [address] [place] [address] Apr, [place] [address] [address] [facility] [id number] [address] [place] [address] Apr, [facility] [address] [facility] [id number] [address] [place] [address] Apr, Crohn's disease of both smal l and large intestine with complication K50.819 [place] [address] [address] [facility] [id number] [address] [place] [address] Apr, Vitamin B12 deficiency E53.8 [place] [address] [address] [facility] [id number] [address] [place] [address] Apr, Crohn's disease of both smal l and large intestine with complication K50.819 and Acute pain of right shoulder M25.511 [place] [address] [place] [id number] [place] [address] Mar, Type 2 diabetes mellitus wit hout complication E11.9 ; Frequent falls R29.6 and Other chest pain R07.89 [place] [address] [address] [facility] [id number] [address] [place] [address] Mar, [place] [address] [address] [facility] [id number] [address] [place] [address] Mar, [place] [address] [address] [facility] [id number] [address] [place] [phone] Mar, Type 2 diabetes mellitus wit hout complication E11.9 and Blurry vision, bilateral H53.8 [place] [address] [facility] [id number] [address] [place] [address] Mar, Vitamin B12 deficiency E53.8 [place] [address] [facility] [id number] [address] [place] [address] Mar, Crohn's disease of both smal l and large intestine with complication K50.819 [place] [address] [facility] [id number] [address] [place] [phone] February, Vitamin B12 deficiency E53.8 [facility] [address] [id number] [address] [place] [id number] Jan, Crohn's disease of both smal l and large intestine with complication K50.819 [facility] [address] [facility] [id number] [address] [place] [address] Jan, Crohn's disease of both smal l and large intestine with complication K50.819 [facility] [address] [id number] [address] [place] [address] Jan, Dark brown-colored urine R82 .99 and Acute suppurative otitis media of right ear without spontaneous rupture of tympanic membrane, recurrence not specified H66.001 [facility] [address] [facility] [id number] [address] [place] [address] Jan, Encounter for immunization Z 23 [place] [address] [address] [facility] [id number] [address] [place] [address] Dec, Crohn's disease of both smal l and large intestine with complication K50.819 and Eustachian tube dysfunction, right H69.81 [place] [address] [address] [facility] [id number] [address] [place] [phone] Dec, [facility] [address] [facility] [id number] [address] [place] [address] 16 Dec, 2016 Contusion of right knee, ini tial encounter S80.01XA [facility] [address] [id number] [address] [place] [address] Dec, [place] [address] [address] [facility] [id number] [address] [place] [address] Dec, Acute pain of right knee M25 .561 [place] [address] [address] [facility] [id number] [address] [place] [address] 09 Dec, 2016 Iron deficiency anemia due t o chronic blood loss D50.0 [place] [address] [place] [id number] [place] [address] 09 Dec, 2016 Hyperlipidemia E78.5 ; Type 2 diabetes mellitus without complication E11.9 ; Vitamin B12 deficiency E53.8 ; Essential hypertension I10 ; Obstructive sleep apnea on CPAP G47.33 and Periodic limb movement sleep disorder G47.61 [facility] [address] [facility] [id number] [address] [place] [address] 22 Nov, 2016 Type 2 diabetes mellitus wit hout complication E11.9 ; Vitamin B12 deficiency E53.8 ; Hyperlipidemia E78.5 ; Essential hypertension I10 ; Obstructive sleep apnea on CPAP G47.33 ; Periodic limb movement sleep disorder G47.61 ; Anxiety F41.9 ; Acquired hypothyroidism E03.9 and Chronic tension-type headache, intractable G44.221 [place] [address] [place] [id number] [place] [address] 10 Nov, 2016 Crohn's disease of both smal l and large intestine with complication K50.819 [place] [address] [place] [address] Nov, Vitamin B12 deficiency E53.8 [place] [address] [place] [address] Oct, [place] [address] [place] [address] Oct, Vitamin B12 deficiency E53.8 [place] [address] [place] [id number] [place] [id number] Sep, [facility] [address] [place] [id number] [place] [address] Sep, Vitamin B12 deficiency E53.8 [facility] [address] [place] [id number] [place] [address] Aug, [place] [address] [place] [id number] [place] [phone] 14 Aug, 2016 Vitamin B12 deficiency E53.8 [place] [address] [place] [id number] [place] [phone] Aug, [facility] [address] [facility] [id number] [address] [place] [address] Jul, Elevated ALT measurement R74 .0 [facility] [address] [facility] [id number] [address] [place] [address] Jul, Hematuria R31.9 ; Acute righ t-sided thoracic back pain M54.6 ; Major depressive disorder, recurrent episode, moderate F33.1 and Elevated ALT measurement R74.0 [facility] [address] [id number] [address] [place] [phone] Jul, [facility] [address] [facility] [id number] [address] [place] [phone] Jul, Elevated ALT measurement R74 .0 [place] [address] [facility] [id number] [address] [place] [address] Jul, Iron deficiency anemia due t o chronic blood loss D50.0 [facility] [address] [facility] [id number] [address] [place] [id number] 14 Jul, 2016 Type 2 diabetes mellitus wit hout complication E11.9 ; Acquired hypothyroidism E03.9 ; Iron deficiency anemia due to chronic blood loss D50.0 ; Hyperlipidemia E78.5 and Essential hypertension I10 [place] [facility] [id number] [address] [place] [id number] 26 Jun, 2016 [place] [address] [address] [facility] [id number] [address] [place] [address] 20 Jun, 2016 Vitamin B12 deficiency E53.8 [place] [address] [address] [facility] [id number] [address] [place] [address] 16 Jun, 2016 Type 2 diabetes mellitus wit hout complication E11.9 ; Acquired hypothyroidism E03.9 ; Iron deficiency anemia due to chronic blood loss D50.0 ; Hyperlipidemia E78.5 ; Essential hypertension I10 ; Chronic tension-type headache, intractable G44.221 ; Pulsatile tinnitus, bilateral H93.13 ; Obstructive sleep apnea on CPAP G47.33 and Major depressive disorder, recurrent episode, moderate F33.1 [facility] [address] [id number] [address] [place] [id number] 16 May, 2016 Vitamin B12 deficiency E53.8 [facility] [address] [id number] [address] [place] [phone] 08 May, 2016 [facility] [address] [facility] [id number] [address] [place] [address] Apr, Vitamin B12 deficiency E53.8 [facility] [address] [id number] [address] [place] [address] 05 Apr, 2016 [facility] [address] [id number] [address] [place] [address] Mar, Chronic tension-type headach e, intractable G44.221 and Major depressive disorder, recurrent episode, moderate F33.1 [facility] [address] [id number] [address] [place] [id number] 14 Mar, 2016 Vitamin B12 deficiency E53.8 [facility] [address] [id number] [address] [place] [phone] February, [facility] [address] [facility] [id number] [address] [place] [address] February, Vitamin B12 deficiency E53.8 [facility] [address] [facility] [id number] [address] [place] [address] February, [facility] [address] [facility] [id number] [address] [place] [id number] Jan, Dysuria R30.0 [facility] [address] [facility] [id number] [address] [place] [id number] Jan, Type 2 diabetes mellitus wit hout complication E11.9 and Essential hypertension I10 [facility] [address] [facility] [id number] [address] [place] [phone] 15 Jan, 2016 Chronic diarrhea K52.9 [facility] [address] [facility] [id number] [address] [place] [id number] 13 Jan, 2016 [facility] [address] [facility] [id number] [address] [place] [phone] Jan, Chronic diarrhea K52.9 [facility] [address] [facility] [id number] [address] [place] [phone] Jan, [facility] [address] [facility] [id number] [address] [place] [address] Jan, Dysuria R30.0 [facility] [address] [facility] [id number] [address] [place] [phone] Jan, Vitamin B12 deficiency E53.8 [facility] [address] [facility] [id number] [address] [place] [phone] 07 Jan, 2016 Dysuria R30.0 and Iron defic iency anemia due to chronic blood loss D50.0 [facility] [address] [place] [id number] [place] [id number] 05 Jan, 2016 Dysuria R30.0 [facility] [address] [place] [id number] [address] [place] [phone] Jan, [facility] [address] [place] [id number] [place] [address] 15 Dec, 2015 [facility] [address] [place] [id number] [place] [address] Dec, Iron deficiency anemia due t o chronic blood loss D50.0 [facility] [address] [place] [id number] [place] [phone] 10 Dec, 2015 Dysuria R30.0 ; Fatigue R53. 83 ; Hyperlipidemia E78.5 and Diarrhea R19.7 [facility] [address] [facility] [id number] [address] [place] [phone] 09 Dec, 2015 [facility] [address] [place] [id number] [place] [address] Dec, [facility] [address] [place] [address] 10 Nov, 2015 Vitamin B12 deficiency E53.8 [facility] [address] [facility] [id number] [address] [place] [phone] Oct, Vitamin B12 deficiency E53.8 [facility] [address] [facility] [id number] [address] [place] [id number] Oct, [facility] [address] [facility] [id number] [address] [place] [phone] 09 Oct, 2015 Headache R51 [facility] [address] [facility] [id number] [address] [place] [phone] 07 Oct, 2015 Essential hypertension I10 ; Type 2 diabetes mellitus without complication E11.9 ; Vitamin B12 deficiency E53.8 ; Acquired hypothyroidism E03.9 ; Iron deficiency anemia due to chronic blood loss D50.0 and Hyperlipidemia E78.5 [facility] [address] [facility] [id number] [address] [place] [id number] 17 Sep, 2015 Essential hypertension I10 ; Vitamin B12 deficiency E53.8 ; Iron deficiency anemia due to chronic blood loss D50.0 ; Type 2 diabetes mellitus without complication E11.9 ; Hyperlipidemia E78.5 and Acquired hypothyroidism E03.9 [facility] [address] [place] [phone] 08 Sep, 2015 [facility] [address] [facility] [id number] [address] [place] [phone] Sep, [facility] [address] [place] [phone] 05 Jul, 2015 [facility] [address] [facility] [id number] [address] [place] [id number] 29 Jun, 2015 [facility] [id number] [place] [id number] 18 Jun, 2015 [facility] [address] [place] [id number] [address] [place] [id number] 15 Jun, 2015 Hyperlipidemia 272.4 ; Iron deficiency anemia 280.9 ; Hypothyroidism 244.9 ; Diabetes mellitus without mention of complication, type II or unspecified type, not stated as uncontrolled 250.00 and Hypertension 401.9 [facility] [address] [id number] [address] [place] [id number] Jun, [facility] [address] [id number] [address] [place] [id number] Jun, [facility] [address] [facility] [id number] [address] [place] [id number] May, Hyperlipidemia 272.4 [facility] [address] [id number] [address] [place] [phone] May, [facility] [address] [facility] [id number] [address] [place] [id number] May, [facility] [address] [facility] [place] [id number] [address] [place] [id number] Apr, Diabetes mellitus without me ntion of complication, type II or unspecified type, not stated as uncontrolled 250.00 ; Hypothyroidism 244.9 ; Hyperlipidemia 272.4 ; Pain in joint, lower leg 719.46 and RUQ pain 789.01 [facility] [address] [facility] [place] [id number] [address] [place] [id number] Mar, Sinusitis 473.9 [facility] [address] [facility] [place] [id number] [address] [place] [id number] Mar, [facility] [address] [facility] [place] [id number] [address] [place] [id number] Mar, [facility] [address] [facility] [place] [id number] [address] [place] [id number] Mar, Hematochezia 578.1 [facility] [address] [facility] [place] [id number] [address] [place] [id number] February, Sinusitis 473.9 [facility] [address] [facility] [place] [id number] [address] [place] [id number] February, [facility] [address] [facility] [place] [id number] [address] [place] [id number] Jan, [facility] [address] [id number] [address] [place] [address], [place] [address] Jan, [facility] [address] [id number] [address] [place] [address], [place] [address] 24 Dec, 2014 [facility] [address] [id number] [address] [place] [address], [place] [address] Dec, [facility] [address] [id number] [address] [place] [address], [place] [address] Dec, [facility] [address] [id number] [address] [place] [address], [place] [address] Dec, [facility] [address] [id number] [address] [place] [address], [place] [address] Dec, [facility] [address] [id number] [address] [place] [address], [place] [address] Dec, [facility] [address] [id number] [address] [place] [address], [place] [address] Dec, [facility] [address] [id number] [address] [place] [address], [place] [address] Dec, [facility] [address] [id number] [address] [place] [address], [place] [address] Dec, [facility] [address] [id number] [address] [place] [address], [place] [address] Dec, [facility] [address] [id number] [address] [place] [address], [place] [address] Dec, [facility] [address] [id number] [address] [place] [address], [place] [address] Nov, [facility] [address] [id number] [address] [place] [address], [place] [address] Nov, [facility] [address] [id number] [address] [place] [address], [place] [address] 17 Nov, 2014 [facility] [address] [id number] [address] [place] [address], [place] [address] Nov, [facility] [address] [id number] [address] [place] [address], [place] [address] Oct, [facility] [address] [id number] [address] [place] [address], [place] [address] Oct, [facility] [address] [id number] [address] [place] [address], [place] [address] Oct, [facility] [address] [id number] [address] [place] [address], [place] [address] Oct, [facility] [address] [id number] [address] [place] [address], [place] [address] Oct, [facility] [address] [id number] [address] [place] [address], [place] [address] Oct, [facility] [address] [id number] [address] [place] [address], [place] [address] Sep, [facility] [address] [id number] [address] [place] [address], [place] [address] Sep, [facility] [address] [id number] [address] [place] [address], [place] [address] Sep, [facility] [address] [id number] [address] [place] [address], [place] [address] Sep, [facility] [address] [id number] [address] [place] [address], [place] [address] Sep, [facility] [address] [id number] [address] [place] [address], [place] [address] Sep, [facility] [address] [id number] [address] [place] [address], [place] [address] Sep, [facility] [address] [id number] [address] [place] [address], [place] [address] Aug, [facility] [address] [id number] [address] [place] [address], [place] [address] Aug, [facility] [address] [id number] [address] [place] [address], [place] [address] Aug, [facility] [address] [id number] [address] [place] [address], [place] [address] Aug, [facility] [address] [id number] [address] [place] [address], [place] [address] Aug, [facility] [address] [id number] [address] [place] [address], [place] [address] Aug, [facility] [address] [id number] [address] [place] [address], [place] [address] Aug, [facility] [address] [id number] [address] [place] [address], [place] [address] Aug, [facility] [address] [id number] [address] [place] [address], [place] [address] Aug, [facility] [address] [id number] [address] [place] [address], [place] [address] Aug, [facility] [address] [id number] [address] [place] [address], [place] [address] Aug, [facility] [address] [id number] [address] [place] [address], [place] [address] Aug, [facility] [address] [id number] [address] [place] [address], [place] [address] Aug, [facility] [address] [id number] [address] [place] [address], [place] [address] Aug, [facility] [address] [id number] [address] [place] [address], [place] [address] Jul, [facility] [address] [id number] [address] [place] [address], [place] [address] Jul, [facility] [address] [id number] [address] [place] [address], [place] [address] Jul, [facility] [address] [id number] [address] [place] [address], [place] [address] 06 Jul, 2014 [facility] [address] [id number] [facility] [place] [address] 24 Jun, 2013 [facility] [address] [id number] [facility] [place] [address] 24 Jun, 2013 [facility] [address] [id number] [address] [place] [address], [place] [address] 23 Jun, 2013 [facility] [address] [id number] [address] [place] [address], [place] [address] 23 Jun, 2013 [facility] [address] [id number] [address] [place] [address], [place] [address] 19 Jun, 2013 [facility] [address] [id number] [address] [place] [address], [place] [address] 19 Jun, 2013 [facility] [address] [id number] [address] [place] [address], [place] [address] 11 Jun, 2013 [facility] [address] [id number] [address] [place] [address], [place] [address] 11 Jun, 2013 [facility] [address] [id number] [address] [place] [address], [place] [address] 11 Jun, 2013 [facility] [address] [id number] [address] [place] [address], [place] [address] 11 Jun, 2013 [facility] [address] [id number] [address] [place] [address], [place] [address] 10 Jun, 2013 [facility] [address] [id number] [address] [place] [address], [place] [address] 10 Jun, 2013 [facility] [address] [id number] [address] [place] [address], [place] [address] 09 Jun, 2013 [facility] [address] [id number] [address] [place] [address], [place] [address] 09 Jun, 2013 [facility] [address] [id number] [address] [place] [address], [place] [address] 14 May, 2014 [facility] [address] [id number] [facility] [place] [address] May, [facility] [address] [id number] [facility] [place] [address] May, [facility] [address] [id number] [facility] [place] [address] May, [facility] [address] [id number] [address] [place] [address], [place] [address] May, [facility] [address] [id number] [address] [place] [address], [place] [address] May, [facility] [address] [id number] [address] [place] [address], [place] [address] Apr, [facility] [address] [id number] [address] [place] [address], [place] [address] Apr, [facility] [address] [id number] [address] [place] [address], [place] [address] Apr, [facility] [address] [id number] [address] [place] [address], [place] [address] Apr, [facility] [address] [id number] [address] [place] [address], [place] [address] Apr, [facility] [address] [id number] [address] [place] [address], [place] [address] Apr, [facility] [address] [id number] [address] [place] [address], [place] [address] Apr, [facility] [address] [id number] [address] [place] [address], [place] [address] Apr, [facility] [address] [id number] [address] [place] [address], [place] [address] Apr, [facility] [address] [id number] [address] [place] [address], [place] [address] Apr, [facility] [address] [id number] [address] [place] [address], [place] [address] Apr, [facility] [address] [id number] [address] [place] [address], [place] [address] Mar, [facility] [address] [id number] [address] [place] [address], [place] [address] Mar, [facility] [address] [id number] [address] [place] [address], [place] [address] Mar, [facility] [address] [id number] [address] [place] [address], [place] [address] Mar, [facility] [address] [id number] [address] [place] [address], [place] [address] February, [facility] [address] [id number] [address] [place] [address], [place] [address] February, [facility] [address] [id number] [address] [place] [address], [place] [address] Jan, [facility] [address] [id number] [address] [place] [address], [place] [address] Jan, [facility] [address] [place] [id number] Jan, [facility] [address] [id number] [address] [place] [address], [place] [address] Jan, [facility] [address] [id number] [address] [place] [address], [place] [address] Jan, [facility] [address] [id number] [address] [place] [address], [place] [address] Jan, [facility] [address] [id number] [address] [place] [address], [place] [address] Jan, [facility] [address] [id number] [address] [place] [address], [place] [address] Jan, [facility] [address] [id number] [address] [place] [address], [place] [address] Jan, [facility] [address] [id number] [address] [place] [address], [place] [address] Jan, [facility] [address] [id number] [address] [place] [address], [place] [address] Jan, [facility] [address] [id number] [address] [place] [address], [place] [address] Jan, [facility] [address] [id number] [address] [place] [address], [place] [address] Jan, [facility] [address] [id number] [address] [place] [address], [place] [address] Jan, [facility] [address] [id number] [address] [place] [address], [place] [address] Jan, [facility] [address] [id number] [address] [place] [address], [place] [address] Jan, [facility] [address] [id number] [address] [place] [address], [place] [address] Jan, [facility] [address] [id number] [address] [place] [address], [place] [address] Dec, [facility] [address] [id number] [address] [place] [address], [place] [address] Dec, [facility] [address] [id number] [address] [place] [address], [place] [address] Dec, [facility] [address] [id number] [address] [place] [address], [place] [address] Dec, [facility] [address] [id number] [address] [place] [address], [place] [address] Dec, [facility] [address] [id number] [address] [place] [address], [place] [address] Dec, [facility] [address] [id number] [address] [place] [address], [place] [address] Dec, [facility] [address] [id number] [address] [place] [address], [place] [address] Nov, [facility] [address] [id number] [address] [place] [id number] Nov, [facility] [address] [id number] [address] [place] [address], [place] [address] Nov, [facility] [address] [id number] [address] [place] [address], [place] [address] Nov, [facility] [address] [id number] [address] [place] [address], [place] [address] Nov, [facility] [address] [id number] [address] [place] [address], [place] [address] Nov, [facility] [address] [id number] [address] [place] [address], [place] [address] Nov, [facility] [address] [id number] [address] [place] [address], [place] [address] Oct, [facility] [address] [id number] [address] [place] [address], [place] [address] Oct, [facility] [address] [id number] [address] [place] [address], [place] [address] Sep, [facility] [address] [id number] [address] [place] [address], [place] [address] Sep, [facility] [address] [id number] [address] [place] [address], [place] [address] Sep, [facility] [address] [id number] [address] [place] [address], [place] [address] Sep, [facility] [address] [id number] [address] [place] [address], [place] [address] Sep, [facility] [address] [id number] [address] [place] [address], [place] [address] Sep, [facility] [address] [id number] [address] [place] [address], [place] [address] Sep, [facility] [address] [id number] [address] [place] [address], [place] [address] Sep, [facility] [address] [id number] [address] [place] [id number] Sep, [facility] [address] [id number] [address] [place] [id number] Sep, [facility] [address] [id number] [address] [place] [id number] Aug, [facility] [address] [id number] [address] [place] [id number] Aug, [facility] [address] [id number] [address] [place] [id number] Aug, [facility] [address] [id number] [address] [place] [id number] Aug, [facility] [address] [id number] [address] [place] [id number] Aug, [facility] [address] [id number] [address] [place] [id number] Jul, [facility] [address] [id number] [address] [place] [id number] Jul, [facility] [address] [id number] [address] [place] [id number] Jul, [facility] [address] [id number] [address] [place] [id number] Jul, IMMUNIZATIONS No Known Immunizations SOCIAL HISTORY Never Assessed REASON FOR VISIT [facility] PLAN OF CARE VITAL SIGNS MEDICATIONS Unknown [...]
--- OUTSIDE RECORDS SUMMARY | 2020-03-16 12:01 | XMS REPORT ---
Author Author Ingrid, Swathi Doctor Organization [facility] Address Unknown Phone Unavailable Care Team Providers Care Director Market Intelligence Name Role Phone Migration, Doctor Unavailable Unavailable PROBLEMS Type Condition ICD9-CM Code AVE79-LO Code Onset Dates Condition S tatus SNOMED Code Problem Sensorineural hearing loss of right ear H90.41 Active 57938816 Problem Obstructive sleep apnea on CPAP G47.33 Active 57264508 Problem Periodic limb movement sleep disorder G47.61 Active 893439268 Problem Fatty liver K76.0 Active 72130602 7 Problem MACHUCA (nonalcoholic steatohepatitis) K75.81 Active 542657636 Problem Hyperlipidemia E78.5 Active 10304 004 Problem Essential hypertension I10 Active 44145336 Problem BMI 50.0-59.9, adult Z68.43 Active 142444805 Problem Type 2 diabetes mellitus with other specified complication E11.69 Active 755128480467 Problem Major depressive disorder, recurrent episode, moderate F33.1 Active 805026706 Problem Acquired hypothyroidism E03.9 Active 993516436 Problem Right upper quadrant pain R10.11 Acti ve 57314818 Problem Anxiety F41.9 Active 44436645 Problem Crohn's disease of both small and large intestin e with complication K50.819 Active 46014417 Problem Chronic tension-type headache, intractable G44.221 Active 779391847 Problem Hyperlipidemia, unspecified E78.5 Ac tive 33098034 Problem Frequent falls R29.6 Active 82341 2001 Problem Vitamin D deficiency E55.9 Active 11919657 Problem Mixed stress and urge urinary incontinence N39.46 Active 880592246 Problem Sinusitis chronic, frontal J32.1 Act katlyn 66595085 Problem Portal hypertension K76.6 Active 89242392 Problem Iron deficiency anemia due to chronic blood loss D 50.0 Active 05811585 Problem Other chronic pain G89.29 Active 8 7181522 Problem Vitamin B12 deficiency E53.8 Active 176554780 Problem Chronic diarrhea K52.9 Active 236 867185 Problem Seasonal allergies J30.2 Active 4 67265559 Problem History of hysterectomy for benign disease Z90.710 Active 730303705 Problem Morbid (severe) obesity due to excess calories E66 .01 Active 465523512 Problem Other cirrhosis of liver K74.69 Activ e [id number] ALLERGIES No Information ENCOUNTERS Encounter Location Date Diagnosis [id number] [place] [address] Jan, [place] [address] [address] Jan, [place] [address] [place] [id number] [place] [address] Dec, Trigeminy R00.8 [place] [address] [address] Dec, Essential hypertension I10 ; Morbid obesity E66.01 ; Low back pain M54.5 ; Other chronic pain G89.29 and Pain in right knee M25.561 [place] [address] [address] [place] [id number] [place] [address] 22 Nov, 2018 [place] [address] [address] Oct, Palpitations R00.2 [place] [address] [place] [id number] [place] [address] Oct, Encounter for Medicare annua l wellness [...] large intestine with complication K50.819 [place] [address] [place] [id number] [place] [address] Oct, [place] [address] [address] Oct, Crohn's disease of both smal l and large intestine with complication K50.819 [facility] [place] [address] [address] Jul, Sinusitis chronic, frontal J 32.1 ; Acute mucoid otitis media of both ears H65.113 ; Seasonal allergies J30.2 and BMI 50.0-59.9, adult Z68.43 [place] [address] [address] Jul, Essential hypertension I10 ; Type 2 diabetes mellitus with other specified complication E11.69 ; BMI 50.0-59.9, adult Z68.43 ; Mixed stress and urge urinary incontinence N39.46 and Mid back pain on right side M54.9 [place] [address] [address] Jun, Iron deficiency anemia due t o chronic blood loss D50.0 ; Hyperlipidemia E78.5 ; Type 2 diabetes mellitus with other specified complication E11.69 ; Vitamin B12 deficiency E53.8 and Vitamin D deficiency E55.9 [facility] [place] [address] [address] Jun, Cough R05 and BMI 50.0-59.9, adult Z68.43 [place] [address] [address] Jun, [address] [address] May, Iron deficiency anemia due t o chronic blood loss D50.0 ; Chronic diarrhea K52.9 ; Essential hypertension I10 ; Type 2 diabetes mellitus with other specified complication E11.69 ; Vitamin D deficiency E55.9 ; Colon stricture K56.699 ; Vitamin B12 deficiency E53.8 ; Hyperlipidemia E78.5 and BMI 50.0-59.9, adult Z68.43 [place] [address] [address] May, [facility] [address] [address] Apr, Nonhealing wound of heel S91 .309A and Body mass index (BMI) of 50- 59.9 in adult Z68.43 [place] [address] [address] Mar, [place] [address] [address] Mar, BMI 50.0-59.9, adult Z68.43 ; Flank pain R10.9 and Weight loss counseling, encounter for Z71.3 [place] [address] [address] February, [place] [address] [address] Jan, [place] [address] [address] Jan, [facility] [address] [address] Jan, Diarrhea due to staphylococc us A04.8 and Diarrhea, unspecified type R19.[address] [address] Jan, Acquired hypothyroidism E03. 9 ; Type 2 diabetes mellitus with other specified complication E11.69 ; Hyperlipidemia E78.5 ; Essential hypertension I10 ; Major depressive disorder, recurrent episode, moderate F33.1 and Vitamin D deficiency E55.[address] [address] Jan, Type 2 diabetes mellitus wit h other specified complication E11.69 ; Hyperlipidemia E78.5 ; Essential hypertension I10 ; Acquired hypothyroidism E03.9 ; Major depressive disorder, recurrent episode, moderate F33.1 ; Vitamin D deficiency E55.9 ; Sinus congestion R09.81 and BMI 50.0-59.9, adult Z68.43 [place] [address] [place] [id number] [place] [address] Dec, [place] [address] [address] Sep, Encounter for immunization Z 23 [place] [address] [address] Sep, [place] [address] [address] Sep, Vitamin B12 deficiency E53.8 [place] [address] [address] Aug, [place] [address] [address] Aug, BMI 60.0-69.9, adult Z68.44 and Acute non-recurrent maxillary sinusitis J01.00 [place] [address] [address] 14 Aug, 2017 [place] [address] [address] 02 Aug, 2017 Medicare annual wellness vis it, initial Z00.00 ; Screening for breast cancer Z12.31 ; BMI 40.0-44.9, adult Z68.41 and Acquired hypothyroidism E03.9 [place] [address] [place] [id number] [place] [address] Jul, Actinic keratosis L57.0 [place] [address] [place] [id number] [place] [address] Jul, Actinic keratosis L57.0 [place] [address] [place] [id number] [place] [address] Jul, Type 2 diabetes mellitus wit h other specified complication E11.69 ; Actinic keratosis L57.0 and Hypothyroidism, unspecified E03.9 [place] [address] [place] [address] [place] [address] Jul, [facility] [address] [place] [id number] [place] [address] Jul, [facility] [address] [place] [id number] [place] [address] Jul, Vitamin B12 deficiency E53.8 [place] [address] [address] Jun, Acquired hypothyroidism E03. 9 and Chronic tension-type headache, intractable G44.221 [place] [address] [address] Jun, Back muscle spasm M62.830 an d BMI 50.0-59.9, adult Z68.43 [place] [address] [address] Jun, Vitamin B12 deficiency E53.8 [place] [address] [address] Jun, Crohn's disease of both smal l and large intestine with complication K50.819 [place] [address] [address] Jun, Crohn's disease of both smal l and large intestine with complication K50.819 [place] [address] [address] May, Hyperlipidemia E78.5 ; Anxie ty F41.9 and Essential hypertension I10 [place] [address] [address] May, [place] [address] [address] May, Encounter for immunization Z 23 and Vitamin B12 deficiency E53.8 [place] [address] [address] May, [facility] [address] [id number] [address] [place] [address] Apr, [place] [address] [facility] [id number] [address] [place] [address] Apr, [facility] [address] [facility] [id number] [address] [place] [address] Apr, Crohn's disease of both smal l and large intestine with complication K50.819 [place] [address] [facility] [id number] [address] [place] [address] Apr, Vitamin B12 deficiency E53.8 [place] [address] [facility] [id number] [address] [place] [address] Apr, Crohn's disease of both smal l and large intestine with complication K50.819 and Acute pain of right shoulder M25.511 [place] [address] [place] [id number] [place] [address] Mar, Type 2 diabetes mellitus wit hout complication E11.9 ; Frequent falls R29.6 and Other chest pain R07.89 [place] [address] [facility] [id number] [address] [place] [address] Mar, [place] [address] [facility] [id number] [address] [place] [address] Mar, [place] [address] [facility] [id number] [address] [place] [address] Mar, Type 2 diabetes mellitus wit hout complication E11.9 and Blurry vision, bilateral H53.8 [place] [address] [facility] [id number] [address] [place] [address] Mar, Vitamin B12 deficiency E53.8 [place] [address] [facility] [id number] [address] [place] [address] Mar, Crohn's disease of both smal l and large intestine with complication K50.819 [place] [address] [facility] [id number] [address] [place] [address] February, Vitamin B12 deficiency E53.8 [facility] [address] [id number] [address] [place] [address] Jan, Crohn's disease of both smal l and large intestine with complication K50.819 [facility] [address] [facility] [id number] [address] [place] [address] Jan, Crohn's disease of both smal l and large intestine with complication K50.819 [facility] [address] [id number] [address] [place] [address] Jan, Dark brown-colored urine R82 .99 and Acute suppurative otitis media of right ear without spontaneous rupture of tympanic membrane, recurrence not specified H66.001 [facility] [address] [facility] [id number] [address] [place] [address] Jan, Encounter for immunization Z 23 [place] [address] [facility] [id number] [address] [place] [address] Dec, Crohn's disease of both smal l and large intestine with complication K50.819 and Eustachian tube dysfunction, right H69.81 [place] [address] [facility] [id number] [address] [place] [address] Dec, [facility] [address] [facility] [id number] [address] [place] [address] 16 Dec, 2016 Contusion of right knee, ini tial encounter S80.01XA [facility] [address] [id number] [address] [place] [address] Dec, [place] [address] [facility] [id number] [address] [place] [address] Dec, Acute pain of right knee M25 .561 [place] [address] [facility] [id number] [address] [place] [address] 09 Dec, 2016 Iron deficiency anemia due t o chronic blood loss D50.0 [place] [address] [place] [id number] [place] [address] 09 Dec, 2016 Hyperlipidemia E78.5 ; Type 2 diabetes mellitus without complication E11.9 ; Vitamin B12 deficiency E53.8 ; Essential hypertension I10 ; Obstructive sleep apnea on CPAP G47.33 and Periodic limb movement sleep disorder G47.61 [facility] [address] [facility] [id number] [address] [place] [address] 22 Nov, 2016 Type 2 diabetes mellitus wit hout complication E11.9 ; Vitamin B12 deficiency E53.8 ; Hyperlipidemia E78.5 ; Essential hypertension I10 ; Obstructive sleep apnea on CPAP G47.33 ; Periodic limb movement sleep disorder G47.61 ; Anxiety F41.9 ; Acquired hypothyroidism E03.9 and Chronic tension-type headache, intractable G44.221 [place] [address] [place] [id number] [place] [address] 10 Nov, 2016 Crohn's disease of both smal l and large intestine with complication K50.819 [place] [address] [place] [address] Nov, Vitamin B12 deficiency E53.8 [place] [address] [place] [address] Oct, [place] [address] [place] [address] Oct, Vitamin B12 deficiency E53.8 [place] [address] [place] [id number] [place] [address] Sep, [facility] [address] [place] [id number] [place] [address] Sep, Vitamin B12 deficiency E53.8 [facility] [address] [place] [id number] [place] [address] Aug, [place] [address] [place] [id number] [place] [address] 14 Aug, 2016 Vitamin B12 deficiency E53.8 [place] [address] [place] [id number] [place] [address] Aug, [facility] [address] [facility] [id number] [address] [place] [address] Jul, Elevated ALT measurement R74 .0 [facility] [address] [facility] [id number] [address] [place] [address] Jul, Hematuria R31.9 ; Acute righ t-sided thoracic back pain M54.6 ; Major depressive disorder, recurrent episode, moderate F33.1 and Elevated ALT measurement R74.0 [facility] [address] [id number] [address] [place] [address] Jul, [facility] [address] [facility] [id number] [address] [place] [address] Jul, Elevated ALT measurement R74 .0 [place] [address] [facility] [id number] [address] [place] [address] Jul, Iron deficiency anemia due t o chronic blood loss D50.0 [facility] [address] [facility] [id number] [address] [place] [address] 14 Jul, 2016 Type 2 diabetes mellitus wit hout complication E11.9 ; Acquired hypothyroidism E03.9 ; Iron deficiency anemia due to chronic blood loss D50.0 ; Hyperlipidemia E78.5 and Essential hypertension I10 [place] [address] [facility] [id number] [address] [place] [address] 26 Jun, 2016 [place] [address] [facility] [id number] [address] [place] [address] 20 Jun, 2016 Vitamin B12 deficiency E53.8 [place] [address] [facility] [id number] [address] [place] [address] 16 Jun, 2016 Type 2 diabetes mellitus wit hout complication E11.9 ; Acquired hypothyroidism E03.9 ; Iron deficiency anemia due to chronic blood loss D50.0 ; Hyperlipidemia E78.5 ; Essential hypertension I10 ; Chronic tension-type headache, intractable G44.221 ; Pulsatile tinnitus, bilateral H93.13 ; Obstructive sleep apnea on CPAP G47.33 and Major depressive disorder, recurrent episode, moderate F33.1 [facility] [address] [id number] [address] [place] [address] 16 May, 2016 Vitamin B12 deficiency E53.8 [facility] [address] [id number] [address] [place] [address] 08 May, 2016 [facility] [address] [facility] [id number] [address] [place] [address] Apr, Vitamin B12 deficiency E53.8 [facility] [address] [id number] [address] [place] [address] 05 Apr, 2016 [facility] [address] [id number] [address] [place] [address] Mar, Chronic tension-type headach e, intractable G44.221 and Major depressive disorder, recurrent episode, moderate F33.1 [facility] [address] [id number] [address] [place] [address] 14 Mar, 2016 Vitamin B12 deficiency E53.8 [facility] [address] [id number] [address] [place] [address] February, [facility] [address] [facility] [id number] [address] [place] [address] February, Vitamin B12 deficiency E53.8 [facility] [address] [facility] [id number] [address] [place] [address] February, [facility] [address] [facility] [id number] [address] [place] [address] Jan, Dysuria R30.0 [facility] [address] [facility] [id number] [address] [place] [address] Jan, Type 2 diabetes mellitus wit hout complication E11.9 and Essential hypertension I10 [facility] [address] [facility] [id number] [address] [place] [address] 15 Jan, 2016 Chronic diarrhea K52.9 [facility] [address] [facility] [id number] [address] [place] [address] 13 Jan, 2016 [facility] [address] [facility] [id number] [address] [place] [address] Jan, Chronic diarrhea K52.9 [facility] [address] [facility] [id number] [address] [place] [address] Jan, [facility] [address] [facility] [id number] [address] [place] [address] Jan, Dysuria R30.0 [facility] [address] [facility] [id number] [address] [place] [address] Jan, Vitamin B12 deficiency E53.8 [facility] [address] [facility] [id number] [address] [place] [address] 07 Jan, 2016 Dysuria R30.0 and Iron defic iency anemia due to chronic blood loss D50.0 [facility] [address] [place] [id number] [place] [address] 05 Jan, 2016 Dysuria R30.0 [facility] [address] [place] [id number] [address] [place] [address] Jan, [facility] [address] [place] [id number] [address] [place] [address] 15 Dec, 2015 [facility] [address] [place] [id number] [place] [address] Dec, Iron deficiency anemia due t o chronic blood loss D50.0 [facility] [address] [place] [id number] [place] [address] 10 Dec, 2015 Dysuria R30.0 ; Fatigue R53. 83 ; Hyperlipidemia E78.5 and Diarrhea R19.7 [facility] [address] [facility] [id number] [address] [place] [address] 09 Dec, 2015 [facility] [address] [place] [id number] [place] [address] Dec, [facility] [address] [place] [address] 10 Nov, 2015 Vitamin B12 deficiency E53.8 [facility] [address] [facility] [id number] [address] [place] [address] Oct, Vitamin B12 deficiency E53.8 [facility] [address] [facility] [id number] [address] [place] [address] Oct, [facility] [address] [facility] [id number] [address] [place] [address] 09 Oct, 2015 Headache R51 [facility] [address] [facility] [id number] [address] [place] [address] 07 Oct, 2015 Essential hypertension I10 ; Type 2 diabetes mellitus without complication E11.9 ; Vitamin B12 deficiency E53.8 ; Acquired hypothyroidism E03.9 ; Iron deficiency anemia due to chronic blood loss D50.0 and Hyperlipidemia E78.5 [facility] [address] [facility] [id number] [address] [place] [address] 17 Sep, 2015 Essential hypertension I10 ; Vitamin B12 deficiency E53.8 ; Iron deficiency anemia due to chronic blood loss D50.0 ; Type 2 diabetes mellitus without complication E11.9 ; Hyperlipidemia E78.5 and Acquired hypothyroidism E03.9 [facility] [address] [place] [address] 08 Sep, 2015 [facility] [address] [facility] [id number] [address] [place] [address] Sep, [facility] [address] [place] [address] 05 Jul, 2015 [facility] [address] [facility] [id number] [address] [place] [address] 29 Jun, 2015 [facility] [address] [place] [address] 18 Jun, 2015 [facility] [address] [place] [id number] [place] [address] 15 Jun, 2015 Hyperlipidemia 272.4 ; Iron deficiency anemia 280.9 ; Hypothyroidism 244.9 ; Diabetes mellitus without mention of complication, type II or unspecified type, not stated as uncontrolled 250.00 and Hypertension 401.9 [facility] [address] [id number] [address] [place] [address] Jun, [facility] [address] [id number] [address] [place] [address] Jun, [facility] [address] [facility] [id number] [address] [place] [address] May, Hyperlipidemia 272.4 [facility] [address] [id number] [address] [place] [phone] May, [facility] [address] [facility] [id number] [address] [place] [id number] May, [facility] [address] [facility] [id number] [address] [place] [id number] Apr, Diabetes mellitus without me ntion of complication, type II or unspecified type, not stated as uncontrolled 250.00 ; Hypothyroidism 244.9 ; Hyperlipidemia 272.4 ; Pain in joint, lower leg 719.46 and RUQ pain 789.01 [facility] [address] [facility] [id number] [address] [place] [id number] Mar, Sinusitis 473.9 [facility] [address] [facility] [id number] [address] [place] [id number] Mar, [facility] [address] [facility] [id number] [address] [place] [id number] Mar, [facility] [address] [facility] [id number] [address] [place] [id number] Mar, Hematochezia 578.1 [facility] [address] [facility] [id number] [place] [id number] February, Sinusitis 473.9 [facility] [address] [facility] [id number] [address] [place] [id number] February, [facility] [address] [facility] [id number] [address] [place] [id number] Jan, [facility] [address] [id number] [address] [place] [address], [place] [address] Jan, [facility] [address] [id number] [address] [place] [address], [place] [address] 24 Dec, 2014 [facility] [address] [id number] [address] [place] [address], [place] [address] Dec, [facility] [address] [id number] [address] [place] [address], [place] [address] Dec, [facility] [address] [id number] [address] [place] [address], [place] [address] Dec, [facility] [address] [id number] [address] [place] [address], [place] [address] Dec, [facility] [address] [id number] [address] [place] [address], [place] [address] Dec, [facility] [address] [id number] [address] [place] [address], [place] [address] Dec, [facility] [address] [id number] [address] [place] [address], [place] [address] Dec, [facility] [address] [id number] [address] [place] [address], [place] [address] Dec, [facility] [address] [id number] [address] [place] [address], [place] [address] Dec, [facility] [address] [id number] [address] [place] [address], [place] [id number] Dec, [facility] [address] [id number] [address] [place] [address], [place] [address] Nov, [facility] [address] [id number] [address] [place] [address], [place] [id number] Nov, [facility] [address] [id number] [address] [place] [address], [place] [id number] 17 Nov, 2014 [facility] [address] [id number] [address] [place] [address], [place] [address] Nov, [facility] [address] [id number] [address] [place] [address], [place] [id number] Oct, [facility] [address] [id number] [address] [place] [address], [place] [address] Oct, [facility] [address] [id number] [address] [place] [address], [place] [address] Oct, [facility] [address] [id number] [address] [place] [address], [place] [address] Oct, [facility] [address] [id number] [address] [place] [address], [place] [address] Oct, [facility] [address] [id number] [address] [place] [address], [place] [address] Oct, [facility] [address] [id number] [address] [place] [address], [place] [address] Sep, [facility] [address] [id number] [address] [place] [address], [place] [address] Sep, [facility] [address] [id number] [address] [place] [address], [place] [address] Sep, [facility] [address] [id number] [address] [place] [address], [place] [address] Sep, [facility] [address] [id number] [address] [place] [address], [place] [address] Sep, [facility] [address] [id number] [address] [place] [address], [place] [address] Sep, [facility] [address] [id number] [address] [place] [address], [place] [address] Sep, [facility] [address] [id number] [address] [place] [address], [place] [address] Aug, [facility] [address] [id number] [address] [place] [address], [place] [address] Aug, [facility] [address] [id number] [address] [place] [address], [place] [id number] Aug, [facility] [address] [id number] [address] [place] [address], [place] [address] Aug, [facility] [address] [id number] [address] [place] [address], [place] [address] Aug, [facility] [address] [id number] [address] [place] [address], [place] [address] Aug, [facility] [address] [id number] [address] [place] [address], [place] [address] Aug, [facility] [address] [id number] [address] [place] [address], [place] [address] Aug, [facility] [address] [id number] [address] [place] [address], [place] [address] Aug, [facility] [address] [id number] [address] [place] [address], [place] [address] Aug, [facility] [address] [id number] [address] [place] [address], [place] [address] Aug, [facility] [address] [id number] [address] [place] [address], [place] [address] Aug, [facility] [address] [id number] [address] [place] [address], [place] [address] Aug, [facility] [address] [id number] [address] [place] [address], [place] [address] Aug, [facility] [address] [id number] [address] [place] [address], [place] [address] Jul, [facility] [address] [id number] [address] [place] [address], [place] [address] Jul, [facility] [address] [id number] [address] [place] [address], [place] [address] Jul, [facility] [address] [id number] [address] [place] [address], [place] [id number] 06 Jul, 2014 [facility] [address] [id number] [facility] [place] [address] 24 Jun, 2013 [facility] [address] [id number] [facility] [place] [address] 24 Jun, 2013 [facility] [address] [id number] [address] [place] [address], [place] [address] 23 Jun, 2013 [facility] [address] [id number] [address] [place] [address], [place] [address] 23 Jun, 2013 [facility] [address] [id number] [address] [place] [address], [place] [id number] 19 Jun, 2013 [facility] [address] [id number] [address] [place] [address], [place] [address] 19 Jun, 2013 [facility] [address] [id number] [address] [place] [address], [place] [address] 11 Jun, 2013 [facility] [address] [id number] [address] [place] [address], [place] [address] 11 Jun, 2013 [facility] [address] [id number] [address] [place] [address], [place] [id number] 11 Jun, 2013 [facility] [address] [id number] [address] [place] [address], [place] [address] 11 Jun, 2013 [facility] [address] [id number] [address] [place] [address], [place] [id number] 10 Jun, 2013 [facility] [address] [id number] [address] [place] [address], [place] [id number] 10 Jun, 2013 [facility] [address] [id number] [address] [place] [address], [place] [address] 09 Jun, 2013 [facility] [address] [id number] [address] [place] [address], [place] [address] 09 Jun, 2013 [facility] [address] [id number] [address] [place] [address], [place] [address] 14 May, 2014 [facility] [address] [id number] [facility] [place] [address] May, [facility] [address] [id number] [facility] [place] [address] May, [facility] [address] [id number] [facility] [place] [address] May, [facility] [address] [id number] [address] [place] [address], [place] [address] May, [facility] [address] [id number] [address] [place] [address], [place] [address] May, [facility] [address] [id number] [address] [place] [address], [place] [address] Apr, [facility] [address] [id number] [address] [place] [address], [place] [address] Apr, [facility] [address] [id number] [address] [place] [address], [place] [address] Apr, [facility] [address] [id number] [address] [place] [address], [place] [address] Apr, [facility] [address] [id number] [address] [place] [address], [place] [address] Apr, [facility] [address] [id number] [address] [place] [address], [place] [address] Apr, [facility] [address] [id number] [address] [place] [address], [place] [address] Apr, [facility] [address] [id number] [address] [place] [address], [place] [address] Apr, [facility] [address] [id number] [address] [place] [address], [place] [address] Apr, [facility] [address] [id number] [address] [place] [address], [place] [address] Apr, [facility] [address] [id number] [address] [place] [address], [place] [address] Apr, [facility] [address] [id number] [address] [place] [address], [place] [address] Mar, [facility] [address] [id number] [address] [place] [address], [place] [address] Mar, [facility] [address] [id number] [address] [place] [address], [place] [address] Mar, [facility] [address] [id number] [address] [place] [address], [place] [id number] Mar, [facility] [address] [id number] [address] [place] [address], [place] [address] February, [facility] [address] [id number] [address] [place] [address], [place] [address] February, [facility] [address] [id number] [address] [place] [address], [place] [address] Jan, [facility] [address] [id number] [address] [place] [address], [place] [address] Jan, [facility] [address] [place] [id number] Jan, [facility] [address] [id number] [address] [place] [address], [place] [address] Jan, [facility] [address] [id number] [address] [place] [address], [place] [address] Jan, [facility] [address] [id number] [address] [place] [address], [place] [id number] Jan, [facility] [address] [id number] [address] [place] [address], [place] [address] Jan, [facility] [address] [id number] [address] [place] [address], [place] [address] Jan, [facility] [address] [id number] [address] [place] [address], [place] [address] Jan, [facility] [address] [id number] [address] [place] [address], [place] [address] Jan, [facility] [address] [id number] [address] [place] [address], [place] [address] Jan, [facility] [address] [id number] [address] [place] [address], [place] [address] Jan, [facility] [address] [id number] [address] [place] [address], [place] [address] Jan, [facility] [address] [id number] [address] [place] [address], [place] [address] Jan, [facility] [address] [id number] [address] [place] [address], [place] [id number] Jan, [facility] [address] [id number] [address] [place] [address], [place] [address] Jan, [facility] [address] [id number] [address] [place] [address], [place] [address] Jan, [facility] [address] [id number] [address] [place] [address], [place] [address] Dec, [facility] [address] [id number] [address] [place] [address], [place] [address] Dec, [facility] [address] [id number] [address] [place] [address], [place] [address] Dec, [facility] [address] [id number] [address] [place] [address], [place] [address] Dec, [facility] [address] [id number] [address] [place] [address], [place] [address] Dec, [facility] [address] [id number] [address] [place] [address], [place] [address] Dec, [facility] [address] [id number] [address] [place] [address], [place] [address] Dec, [facility] [address] [id number] [address] [place] [address], [place] [address] Nov, [facility] [address] [id number] [address] [place] [address] Nov, [facility] [address] [id number] [address] [place] [address], [place] [address] Nov, [facility] [address] [id number] [address] [place] [address], [place] [address] Nov, [facility] [address] [id number] [address] [place] [address], [place] [address] Nov, [facility] [address] [id number] [address] [place] [address], [place] [address] Nov, [facility] [address] [id number] [address] [place] [address], [place] [address] Nov, [facility] [address] [id number] [address] [place] [address], [place] [address] Oct, [facility] [address] [id number] [address] [place] [address], [place] [address] Oct, [facility] [address] [id number] [address] [place] [address], [place] [address] Sep, [facility] [address] [id number] [address] [place] [address], [place] [address] Sep, [facility] [address] [id number] [address] [place] [address], [place] [id number] Sep, [facility] [address] [id number] [address] [place] [address], [place] [id number] Sep, [facility] [address] [id number] [address] [place] [address], [place] [id number] Sep, [facility] [address] [id number] [address] [place] [address], [place] [id number] Sep, [facility] [address] [id number] [address] [place] [address], [place] [address] Sep, [facility] [address] [id number] [address] [place] [address], [place] [address] Sep, [facility] [address] [id number] [address] [place] [id number] Sep, [facility] [address] [id number] [address] [place] [address] Sep, [facility] [address] [id number] [address] [place] [id number] Aug, [facility] [address] [id number] [address] [place] [id number] Aug, [facility] [address] [id number] [address] [place] [id number] Aug, [facility] [address] [id number] [address] [place] [address] Aug, [facility] [address] [id number] [address] [place] [id number] Aug, [facility] [address] [id number] [address] [place] [id number] Jul, [facility] [address] [id number] [address] [place] [id number] Jul, [facility] [address] [id number] [address] [place] [id number] Jul, [facility] [address] [id number] [address] [place] [address] Jul, IMMUNIZATIONS No Known Immunizations SOCIAL HISTORY Never Assessed REASON FOR VISIT [facility] PLAN OF CARE VITAL SIGNS MEDICATIONS Unknown [...]
--- OUTSIDE RECORDS SUMMARY | 2020-03-16 12:01 | XMS REPORT ---
Author Author Ingrid, Swathi Doctor Organization [facility] Address Unknown Phone Unavailable Care Team Providers Care Performance Analyst Name Role Phone Migration, Doctor Unavailable Unavailable PROBLEMS Type Condition ICD9-CM Code EBX49-PF Code Onset Dates Condition S tatus SNOMED Code Problem Sensorineural hearing loss of right ear H90.41 Active 11460218 Problem Obstructive sleep apnea on CPAP G47.33 Active 83285274 Problem Periodic limb movement sleep disorder G47.61 Active 058347885 Problem Fatty liver K76.0 Active 65713183 7 Problem MACHUCA (nonalcoholic steatohepatitis) K75.81 Active 412524637 Problem Hyperlipidemia E78.5 Active 09851 004 Problem Essential hypertension I10 Active 54052593 Problem BMI 50.0-59.9, adult Z68.43 Active 318834590 Problem Type 2 diabetes mellitus with other specified complication E11.69 Active 574409965263 Problem Major depressive disorder, recurrent episode, moderate F33.1 Active 713229085 Problem Acquired hypothyroidism E03.9 Active 813242447 Problem Right upper quadrant pain R10.11 Acti ve 29008736 Problem Anxiety F41.9 Active 00237650 Problem Crohn's disease of both small and large intestin e with complication K50.819 Active 66350363 Problem Chronic tension-type headache, intractable G44.221 Active 848644165 Problem Hyperlipidemia, unspecified E78.5 Ac tive 08669716 Problem Frequent falls R29.6 Active 95624 2001 Problem Vitamin D deficiency E55.9 Active 89198737 Problem Mixed stress and urge urinary incontinence N39.46 Active 641045116 Problem Sinusitis chronic, frontal J32.1 Act katlyn 51995662 Problem Portal hypertension K76.6 Active 22409536 Problem Iron deficiency anemia due to chronic blood loss D 50.0 Active 22541092 Problem Other chronic pain G89.29 Active 8 9861777 Problem Vitamin B12 deficiency E53.8 Active 642942080 Problem Chronic diarrhea K52.9 Active 236 009148 Problem Seasonal allergies J30.2 Active 4 12297634 Problem History of hysterectomy for benign disease Z90.710 Active 247326042 Problem Morbid (severe) obesity due to excess calories E66 .01 Active 375538130 Problem Other cirrhosis of liver K74.69 Activ e 84975653 ALLERGIES No Information ENCOUNTERS Encounter Location Date Diagnosis [place] [id number] [place] [phone] Jan, [place] [address] [address] Jan, [place] [address] [place] [id number] [place] [phone] Dec, Trigeminy R00.8 [place] [address] [address] Dec, Essential hypertension I10 ; Morbid obesity E66.01 ; Low back pain M54.5 ; Other chronic pain G89.29 and Pain in right knee M25.561 [place] [address] [place] [id number] [place] [phone] 22 Nov, 2018 [place] [address] [address] Oct, Palpitations R00.2 [place] [address] [place] [id number] [place] [phone] Oct, Encounter for Medicare annua l wellness [...] small and large intestine with complication K50.819 [place] [address] [place] [id number] [place] [address] Oct, [place] [address] [address] Oct, Crohn's disease of both smal l and large intestine with complication K50.819 [facility] [place] [address] [address] Jul, Sinusitis chronic, frontal J 32.1 ; Acute mucoid otitis media of both ears H65.113 ; Seasonal allergies J30.2 and BMI 50.0-59.9, adult Z68.43 [place] [address] [address] Jul, Essential hypertension I10 ; Type 2 diabetes mellitus with other specified complication E11.69 ; BMI 50.0-59.9, adult Z68.43 ; Mixed stress and urge urinary incontinence N39.46 and Mid back pain on right side M54.9 [place] [address] [address] Jun, Iron deficiency anemia due t o chronic blood loss D50.0 ; Hyperlipidemia E78.5 ; Type 2 diabetes mellitus with other specified complication E11.69 ; Vitamin B12 deficiency E53.8 and Vitamin D deficiency E55.9 [facility] [place] [address] [address] Jun, Cough R05 and BMI 50.0-59.9, adult Z68.43 [place] [address] [address] Jun, [address] [address] May, Iron deficiency anemia due t o chronic blood loss D50.0 ; Chronic diarrhea K52.9 ; Essential hypertension I10 ; Type 2 diabetes mellitus with other specified complication E11.69 ; Vitamin D deficiency E55.9 ; Colon stricture K56.699 ; Vitamin B12 deficiency E53.8 ; Hyperlipidemia E78.5 and BMI 50.0-59.9, adult Z68.43 [place] [address] [address] May, [facility] [address] [address] Apr, Nonhealing wound of heel S91 .309A and Body mass index (BMI) of 50- 59.9 in adult Z68.43 [place] [address] [address] Mar, [place] [address] [address] Mar, BMI 50.0-59.9, adult Z68.43 ; Flank pain R10.9 and Weight loss counseling, encounter for Z71.3 [place] [address] [address] February, [place] [address] [address] Jan, [place] [address] [address] Jan, [facility] [address] [address] Jan, Diarrhea due to staphylococc us A04.8 and Diarrhea, unspecified type R19.[address] [address] Jan, Acquired hypothyroidism E03. 9 ; Type 2 diabetes mellitus with other specified complication E11.69 ; Hyperlipidemia E78.5 ; Essential hypertension I10 ; Major depressive disorder, recurrent episode, moderate F33.1 and Vitamin D deficiency E55.[address] [address] Jan, Type 2 diabetes mellitus wit h other specified complication E11.69 ; Hyperlipidemia E78.5 ; Essential hypertension I10 ; Acquired hypothyroidism E03.9 ; Major depressive disorder, recurrent episode, moderate F33.1 ; Vitamin D deficiency E55.9 ; Sinus congestion R09.81 and BMI 50.0-59.9, adult Z68.43 [place] [address] [place] [id number] [place] [address] Dec, [place] [address] [address] Sep, Encounter for immunization Z 23 [place] [address] [address] Sep, [place] [address] [address] Sep, Vitamin B12 deficiency E53.8 [place] [address] [address] Aug, [place] [address] [address] Aug, BMI 60.0-69.9, adult Z68.44 and Acute non-recurrent maxillary sinusitis J01.00 [place] [address] [address] 14 Aug, 2017 [place] [address] [address] 02 Aug, 2017 Medicare annual wellness vis it, initial Z00.00 ; Screening for breast cancer Z12.31 ; BMI 40.0-44.9, adult Z68.41 and Acquired hypothyroidism E03.9 [place] [address] [place] [id number] [place] [address] Jul, Actinic keratosis L57.0 [place] [address] [place] [id number] [place] [address] Jul, Actinic keratosis L57.0 [place] [address] [place] [id number] [place] [address] Jul, Type 2 diabetes mellitus wit h other specified complication E11.69 ; Actinic keratosis L57.0 and Hypothyroidism, unspecified E03.9 [place] [address] [place] [address] [place] [address] Jul, [facility] [address] [place] [id number] [place] [phone] Jul, [facility] [address] [place] [id number] [place] [address] Jul, Vitamin B12 deficiency E53.8 [place] [address] [address] Jun, Acquired hypothyroidism E03. 9 and Chronic tension-type headache, intractable G44.221 [place] [address] [address] Jun, Back muscle spasm M62.830 an d BMI 50.0-59.9, adult Z68.43 [place] [address] [address] Jun, Vitamin B12 deficiency E53.8 [place] [address] [address] Jun, Crohn's disease of both smal l and large intestine with complication K50.819 [place] [address] [address] Jun, Crohn's disease of both smal l and large intestine with complication K50.819 [place] [address] [address] May, Hyperlipidemia E78.5 ; Anxie ty F41.9 and Essential hypertension I10 [place] [address] [address] May, [place] [address] [address] May, Encounter for immunization Z 23 and Vitamin B12 deficiency E53.8 [place] [address] [address] May, [facility] [address] [id number] [address] [place] [address] Apr, [place] [address] [facility] [id number] [address] [place] [address] Apr, [facility] [address] [facility] [id number] [address] [place] [address] Apr, Crohn's disease of both smal l and large intestine with complication K50.819 [place] [address] [facility] [id number] [address] [place] [phone] Apr, Vitamin B12 deficiency E53.8 [place] [address] [facility] [id number] [address] [place] [phone] Apr, Crohn's disease of both smal l and large intestine with complication K50.819 and Acute pain of right shoulder M25.511 [place] [address] [place] [id number] [place] [address] Mar, Type 2 diabetes mellitus wit hout complication E11.9 ; Frequent falls R29.6 and Other chest pain R07.89 [place] [address] [facility] [id number] [address] [place] [address] Mar, [place] [address] [facility] [id number] [address] [place] [phone] Mar, [place] [address] [facility] [id number] [address] [place] [phone] Mar, Type 2 diabetes mellitus wit hout complication E11.9 and Blurry vision, bilateral H53.8 [place] [address] [facility] [id number] [address] [place] [address] Mar, Vitamin B12 deficiency E53.8 [place] [address] [facility] [id number] [address] [place] [phone] Mar, Crohn's disease of both smal l and large intestine with complication K50.819 [place] [address] [facility] [id number] [address] [place] [phone] February, Vitamin B12 deficiency E53.8 [facility] [address] [id number] [address] [place] [address] Jan, Crohn's disease of both smal l and large intestine with complication K50.819 [facility] [address] [facility] [id number] [address] [place] [phone] Jan, Crohn's disease of both smal l and large intestine with complication K50.819 [facility] [address] [id number] [address] [place] [phone] Jan, Dark brown-colored urine R82 .99 and Acute suppurative otitis media of right ear without spontaneous rupture of tympanic membrane, recurrence not specified H66.001 [facility] [address] [facility] [id number] [address] [place] [phone] Jan, Encounter for immunization Z 23 [place] [address] [facility] [id number] [address] [place] [phone] Dec, Crohn's disease of both smal l and large intestine with complication K50.819 and Eustachian tube dysfunction, right H69.81 [place] [address] [facility] [id number] [address] [place] [phone] Dec, [facility] [address] [facility] [id number] [address] [place] [address] 16 Dec, 2016 Contusion of right knee, ini tial encounter S80.01XA [facility] [address] [id number] [address] [place] [phone] Dec, [place] [address] [facility] [id number] [address] [place] [phone] Dec, Acute pain of right knee M25 .561 [place] [address] [facility] [id number] [address] [place] [phone] 09 Dec, 2016 Iron deficiency anemia due t o chronic blood loss D50.0 [place] [address] [place] [id number] [place] [phone] 09 Dec, 2016 Hyperlipidemia E78.5 ; Type 2 diabetes mellitus without complication E11.9 ; Vitamin B12 deficiency E53.8 ; Essential hypertension I10 ; Obstructive sleep apnea on CPAP G47.33 and Periodic limb movement sleep disorder G47.61 [facility] [address] [facility] [id number] [address] [place] [phone] 22 Nov, 2016 Type 2 diabetes mellitus wit hout complication E11.9 ; Vitamin B12 deficiency E53.8 ; Hyperlipidemia E78.5 ; Essential hypertension I10 ; Obstructive sleep apnea on CPAP G47.33 ; Periodic limb movement sleep disorder G47.61 ; Anxiety F41.9 ; Acquired hypothyroidism E03.9 and Chronic tension-type headache, intractable G44.221 [place] [address] [place] [id number] [place] [address] 10 Nov, 2016 Crohn's disease of both smal l and large intestine with complication K50.819 [place] [address] [place] [address] Nov, Vitamin B12 deficiency E53.8 [place] [address] [place] [phone] Oct, [place] [address] [place] [phone] Oct, Vitamin B12 deficiency E53.8 [place] [address] [place] [id number] [place] [phone] Sep, [facility] [address] [place] [id number] [place] [phone] Sep, Vitamin B12 deficiency E53.8 [facility] [address] [place] [id number] [place] [phone] Aug, [place] [address] [place] [id number] [place] [phone] 14 Aug, 2016 Vitamin B12 deficiency E53.8 [place] [address] [place] [id number] [place] [phone] Aug, [facility] [address] [facility] [id number] [address] [place] [phone] Jul, Elevated ALT measurement R74 .0 [facility] [address] [facility] [id number] [address] [place] [phone] Jul, Hematuria R31.9 ; Acute righ t-sided thoracic back pain M54.6 ; Major depressive disorder, recurrent episode, moderate F33.1 and Elevated ALT measurement R74.0 [facility] [address] [id number] [address] [place] [phone] Jul, [facility] [address] [facility] [id number] [address] [place] [phone] Jul, Elevated ALT measurement R74 .0 [place] [address] [facility] [id number] [address] [place] [phone] Jul, Iron deficiency anemia due t o chronic blood loss D50.0 [facility] [address] [facility] [id number] [address] [place] [phone] 14 Jul, 2016 Type 2 diabetes mellitus wit hout complication E11.9 ; Acquired hypothyroidism E03.9 ; Iron deficiency anemia due to chronic blood loss D50.0 ; Hyperlipidemia E78.5 and Essential hypertension I10 [place] [id number] [facility] [id number] [address] [place] [phone] 26 Jun, 2016 [place] [address] [facility] [id number] [address] [place] [phone] 20 Jun, 2016 Vitamin B12 deficiency E53.8 [place] [address] [facility] [id number] [address] [place] [phone] 16 Jun, 2016 Type 2 diabetes mellitus [...] F33.1 [facility] [address] [id number] [address] [place] [phone] 16 May, 2016 Vitamin B12 deficiency E53.8 [facility] [address] [id number] [address] [place] [phone] 08 May, 2016 [facility] [address] [facility] [id number] [address] [place] [phone] Apr, Vitamin B12 deficiency E53.8 [facility] [address] [id number] [address] [place] [phone] 05 Apr, 2016 [facility] [address] [id number] [address] [place] [phone] Mar, Chronic tension-type headach e, intractable G44.221 and Major depressive disorder, recurrent episode, moderate F33.1 [facility] [address] [id number] [address] [place] [phone] 14 Mar, 2016 Vitamin B12 deficiency E53.8 [facility] [address] [id number] [address] [place] [phone] February, [facility] [address] [facility] [id number] [address] [place] [phone] February, Vitamin B12 deficiency E53.8 [facility] [address] [facility] [id number] [address] [place] [phone] February, [facility] [address] [facility] [id number] [address] [place] [phone] Jan, Dysuria R30.0 [facility] [address] [facility] [id number] [address] [place] [phone] Jan, Type 2 diabetes mellitus wit hout complication E11.9 and Essential hypertension I10 [facility] [address] [facility] [id number] [address] [place] [phone] 15 Jan, 2016 Chronic diarrhea K52.9 [facility] [address] [facility] [id number] [address] [place] [phone] 13 Jan, 2016 [facility] [address] [facility] [id number] [address] [place] [phone] Jan, Chronic diarrhea K52.9 [facility] [address] [facility] [id number] [address] [place] [phone] Jan, [facility] [address] [facility] [id number] [address] [place] [phone] Jan, Dysuria R30.0 [facility] [address] [facility] [id number] [address] [place] [phone] Jan, Vitamin B12 deficiency E53.8 [facility] [address] [facility] [id number] [address] [place] [phone] 07 Jan, 2016 Dysuria R30.0 and Iron defic iency anemia due to chronic blood loss D50.0 [facility] [address] [place] [id number] [place] [phone] 05 Jan, 2016 Dysuria R30.0 [facility] [address] [place] [id number] [address] [place] [phone] Jan, [facility] [address] [place] [id number] [address] [place] [phone] 15 Dec, 2015 [facility] [address] [place] [id number] [place] [phone] Dec, Iron deficiency anemia due t o chronic blood loss D50.0 [facility] [address] [place] [id number] [place] [phone] 10 Dec, 2015 Dysuria R30.0 ; Fatigue R53. 83 ; Hyperlipidemia E78.5 and Diarrhea R19.7 [facility] [address] [facility] [id number] [address] [place] [phone] 09 Dec, 2015 [facility] [address] [place] [id number] [place] [phone] Dec, [facility] [address] [place] [phone] 10 Nov, 2015 Vitamin B12 deficiency E53.8 [facility] [address] [facility] [id number] [address] [place] [phone] Oct, Vitamin B12 deficiency E53.8 [facility] [address] [facility] [id number] [address] [place] [phone] Oct, [facility] [address] [facility] [id number] [address] [place] [phone] 09 Oct, 2015 Headache R51 [facility] [address] [facility] [id number] [address] [place] [phone] 07 Oct, 2015 Essential hypertension I10 ; Type 2 diabetes mellitus without complication E11.9 ; Vitamin B12 deficiency E53.8 ; Acquired hypothyroidism E03.9 ; Iron deficiency anemia due to chronic blood loss D50.0 and Hyperlipidemia E78.5 [facility] [address] [facility] [id number] [address] [place] [phone] 17 Sep, 2015 Essential hypertension I10 ; Vitamin B12 deficiency E53.8 ; Iron deficiency anemia due to chronic blood loss D50.0 ; Type 2 diabetes mellitus without complication E11.9 ; Hyperlipidemia E78.5 and Acquired hypothyroidism E03.9 [facility] [id number] [place] [phone] 08 Sep, 2015 [facility] [address] [facility] [id number] [address] [place] [phone] Sep, [facility] [address] [place] [phone] 05 Jul, 2015 [facility] [address] [facility] [id number] [address] [place] [phone] 29 Jun, 2015 [facility] [address] [place] [phone] 18 Jun, 2015 [facility] [address] [place] [id number] [place] [phone] 15 Jun, 2015 Hyperlipidemia 272.4 ; Iron deficiency anemia 280.9 ; Hypothyroidism 244.9 ; Diabetes mellitus without mention of complication, type II or unspecified type, not stated as uncontrolled 250.00 and Hypertension 401.9 [facility] [address] [id number] [address] [place] [phone] Jun, [facility] [address] [id number] [address] [place] [phone] Jun, [facility] [address] [facility] [id number] [address] [place] [phone] May, Hyperlipidemia 272.4 [facility] [address] [id number] [address] [place] [phone] May, [facility] [address] [facility] [id number] [address] [place] [phone] May, [facility] [address] [facility] [id number] [address] [place] [phone] Apr, Diabetes mellitus without me ntion of complication, type II or unspecified type, not stated as uncontrolled 250.00 ; Hypothyroidism 244.9 ; Hyperlipidemia 272.4 ; Pain in joint, lower leg 719.46 and RUQ pain 789.01 [facility] [address] [facility] [id number] [address] [place] [id number] Mar, Sinusitis 473.9 [facility] [address] [facility] [id number] [address] [place] [phone] Mar, [facility] [address] [facility] [id number] [place] [id number] Mar, [facility] [address] [facility] [id number] [address] [place] [phone] Mar, Hematochezia 578.1 [facility] [address] [facility] [id number] [address] [place] [id number] February, Sinusitis 473.9 [facility] [address] [facility] [id number] [address] [place] [id number] February, [facility] [address] [facility] [id number] [address] [place] [id number] Jan, [facility] [address] [id number] [address] [place] [address], [place] [address] Jan, [facility] [address] [id number] [address] [place] [address], [place] [address] 24 Dec, 2014 [facility] [address] [id number] [address] [place] [address], [place] [address] Dec, [facility] [address] [id number] [address] [place] [address], [place] [address] Dec, [facility] [address] [id number] [address] [place] [address], [place] [address] Dec, [facility] [address] [id number] [address] [place] [address], [place] [address] Dec, [facility] [address] [id number] [address] [place] [address], [place] [address] Dec, [facility] [address] [id number] [address] [place] [address], [place] [address] Dec, [facility] [address] [id number] [address] [place] [address], [place] [address] Dec, [facility] [address] [id number] [address] [place] [address], [place] [address] Dec, [facility] [address] [id number] [address] [place] [address], [place] [address] Dec, [facility] [address] [id number] [address] [place] [address], [place] [address] Dec, [facility] [address] [id number] [address] [place] [address], [place] [address] Nov, [facility] [address] [id number] [address] [place] [address], [place] [address] Nov, [facility] [address] [id number] [address] [place] [address], [place] [address] 17 Nov, 2014 [facility] [address] [id number] [address] [place] [address], [place] [address] Nov, [facility] [address] [id number] [address] [place] [address], [place] [address] Oct, [facility] [address] [id number] [address] [place] [address], [place] [address] Oct, [facility] [address] [id number] [address] [place] [address], [place] [address] Oct, [facility] [address] [id number] [address] [place] [address], [place] [address] Oct, [facility] [address] [id number] [address] [place] [address], [place] [address] Oct, [facility] [address] [id number] [address] [place] [address], [place] [address] Oct, [facility] [address] [id number] [address] [place] [address], [place] [address] Sep, [facility] [address] [id number] [address] [place] [address], [place] [address] Sep, [facility] [address] [id number] [address] [place] [address], [place] [address] Sep, [facility] [address] [id number] [address] [place] [address], [place] [address] Sep, [facility] [address] [id number] [address] [place] [address], [place] [address] Sep, [facility] [address] [id number] [address] [place] [address], [place] [address] Sep, [facility] [address] [id number] [address] [place] [address], [place] [address] Sep, [facility] [address] [id number] [address] [place] [address], [place] [address] Aug, [facility] [address] [id number] [address] [place] [address], [place] [address] Aug, [facility] [address] [id number] [address] [place] [address], [place] [address] Aug, [facility] [address] [id number] [address] [place] [address], [place] [address] Aug, [facility] [address] [id number] [address] [place] [address], [place] [address] Aug, [facility] [address] [id number] [address] [place] [address], [place] [address] Aug, [facility] [address] [id number] [address] [place] [address], [place] [address] Aug, [facility] [address] [id number] [address] [place] [address], [place] [address] Aug, [facility] [address] [id number] [address] [place] [address], [place] [address] Aug, [facility] [address] [id number] [address] [place] [address], [place] [address] Aug, [facility] [address] [id number] [address] [place] [address], [place] [address] Aug, [facility] [address] [id number] [address] [place] [address], [place] [address] Aug, [facility] [address] [id number] [address] [place] [address], [place] [address] Aug, [facility] [address] [id number] [address] [place] [address], [place] [address] Aug, [facility] [address] [id number] [address] [place] [address], [place] [address] Jul, [facility] [address] [id number] [address] [place] [address], [place] [address] Jul, [facility] [address] [id number] [address] [place] [address], [place] [address] Jul, [facility] [address] [id number] [address] [place] [address], [place] [address] 06 Jul, 2014 [facility] [address] [id number] [facility] [place] [address] 24 Jun, 2013 [facility] [address] [id number] [facility] [place] [address] 24 Jun, 2013 [facility] [address] [id number] [address] [place] [address], [place] [address] 23 Jun, 2013 [facility] [address] [id number] [address] [place] [address], [place] [address] 23 Jun, 2013 [facility] [address] [id number] [address] [place] [address], [place] [address] 19 Jun, 2013 [facility] [address] [id number] [address] [place] [address], [place] [address] 19 Jun, 2013 [facility] [address] [id number] [address] [place] [address], [place] [address] 11 Jun, 2013 [facility] [address] [id number] [address] [place] [address], [place] [address] 11 Jun, 2013 [facility] [address] [id number] [address] [place] [address], [place] [address] 11 Jun, 2013 [facility] [address] [id number] [address] [place] [address], [place] [address] 11 Jun, 2013 [facility] [address] [id number] [address] [place] [address], [place] [address] 10 Jun, 2013 [facility] [address] [id number] [address] [place] [address], [place] [address] 10 Jun, 2013 [facility] [address] [id number] [address] [place] [address], [place] [address] 09 Jun, 2013 [facility] [address] [id number] [address] [place] [address], [place] [address] 09 Jun, 2013 [facility] [address] [id number] [address] [place] [address], [place] [address] 14 May, 2014 [facility] [address] [id number] [address] [place] [address] May, [facility] [address] [id number] [address] [place] [address] May, [facility] [address] [id number] [facility] [place] [address] May, [facility] [address] [id number] [address] [place] [address], [place] [address] May, [facility] [address] [id number] [address] [place] [address], [place] [address] May, [facility] [address] [id number] [address] [place] [address], [place] [address] Apr, [facility] [address] [id number] [address] [place] [address], [place] [address] Apr, [facility] [address] [id number] [address] [place] [address], [place] [address] Apr, [facility] [address] [id number] [address] [place] [address], [place] [address] Apr, [facility] [address] [id number] [address] [place] [address], [place] [address] Apr, [facility] [address] [id number] [address] [place] [address], [place] [address] Apr, [facility] [address] [id number] [address] [place] [address], [place] [address] Apr, [facility] [address] [id number] [address] [place] [address], [place] [address] Apr, [facility] [address] [id number] [address] [place] [address], [place] [address] Apr, [facility] [address] [id number] [address] [place] [address], [place] [address] Apr, [facility] [address] [id number] [address] [place] [address], [place] [address] Apr, [facility] [address] [id number] [address] [place] [address], [place] [address] Mar, [facility] [address] [id number] [address] [place] [address], [place] [address] Mar, [facility] [address] [id number] [address] [place] [address], [place] [address] Mar, [facility] [address] [id number] [address] [place] [address], [place] [address] Mar, [facility] [address] [id number] [address] [place] [address], [place] [address] February, [facility] [address] [id number] [address] [place] [address], [place] [address] February, [facility] [address] [id number] [address] [place] [address], [place] [address] Jan, [facility] [address] [id number] [address] [place] [address], [place] [address] Jan, [facility] [address] [place] [id number] Jan, [facility] [address] [id number] [address] [place] [address], [place] [address] Jan, [facility] [address] [id number] [address] [place] [address], [place] [address] Jan, [facility] [address] [id number] [address] [place] [address], [place] [address] Jan, [facility] [address] [id number] [address] [place] [address], [place] [address] Jan, [facility] [address] [id number] [address] [place] [address], [place] [address] Jan, [facility] [address] [id number] [address] [place] [address], [place] [address] Jan, [facility] [address] [id number] [address] [place] [address], [place] [address] Jan, [facility] [address] [id number] [address] [place] [address], [place] [address] Jan, [facility] [address] [id number] [address] [place] [address], [place] [address] Jan, [facility] [address] [id number] [address] [place] [address], [place] [address] Jan, [facility] [address] [id number] [address] [place] [address], [place] [address] Jan, [facility] [address] [id number] [address] [place] [address], [place] [address] Jan, [facility] [address] [id number] [address] [place] [address], [place] [address] Jan, [facility] [address] [id number] [address] [place] [address], [place] [address] Jan, [facility] [address] [id number] [address] [place] [address], [place] [address] Dec, [facility] [address] [id number] [address] [place] [address], [place] [address] Dec, [facility] [address] [id number] [address] [place] [address], [place] [address] Dec, [facility] [address] [id number] [address] [place] [address], [place] [address] Dec, [facility] [address] [id number] [address] [place] [address], [place] [address] Dec, [facility] [address] [id number] [address] [place] [address], [place] [address] Dec, [facility] [address] [id number] [address] [place] [address], [place] [address] Dec, [facility] [address] [id number] [address] [place] [address], [place] [address] Nov, [facility] [address] [id number] [address] [place] [id number] Nov, [facility] [address] [id number] [address] [place] [address], [place] [address] Nov, [facility] [address] [id number] [address] [place] [address], [place] [address] Nov, [facility] [address] [id number] [address] [place] [address], [place] [address] Nov, [facility] [address] [id number] [address] [place] [address], [place] [address] Nov, [facility] [address] [id number] [address] [place] [address], [place] [address] Nov, [facility] [address] [id number] [address] [place] [address], [place] [address] Oct, [facility] [address] [id number] [address] [place] [address], [place] [address] Oct, [facility] [address] [id number] [address] [place] [address], [place] [address] Sep, [facility] [address] [id number] [address] [place] [address], [place] [address] Sep, [facility] [address] [id number] [address] [place] [address], [place] [address] Sep, [facility] [address] [id number] [address] [place] [address], [place] [address] Sep, [facility] [address] [id number] [address] [place] [address], [place] [address] Sep, [facility] [address] [id number] [address] [place] [address], [place] [address] Sep, [facility] [address] [id number] [address] [place] [address], [place] [address] Sep, [facility] [address] [id number] [address] [place] [address], [place] [address] Sep, [facility] [address] [id number] [address] [place] [address] Sep, [facility] [address] [id number] [address] [place] [address] Sep, [facility] [address] [id number] [address] [place] [address] Aug, [facility] [address] [id number] [address] [place] [address] Aug, [facility] [address] [id number] [address] [place] [id number] Aug, [facility] [address] [id number] [address] [place] [id number] Aug, [facility] [address] [id number] [address] [place] [id number] Aug, [facility] [address] [id number] [address] [place] [id number] Jul, [facility] [address] [id number] [address] [place] [id number] Jul, [facility] [address] [id number] [address] [place] [id number] Jul, [facility] [address] [id number] [address] [place] [id number] Jul, IMMUNIZATIONS No Known Immunizations SOCIAL HISTORY Never Assessed REASON FOR VISIT [facility] PLAN OF CARE VITAL SIGNS MEDICATIONS Unknown [...]
--- OUTSIDE RECORDS SUMMARY | 2020-03-16 12:02 | XMS REPORT ---
Author Author Ingrid, Swathi Doctor Organization [facility] Address Unknown Phone Unavailable Care Team Providers Care Pin Inserter Regulator Name Role Phone Migration, Doctor Unavailable Unavailable PROBLEMS Type Condition ICD9-CM Code [id number] Code Onset Dates Condition S tatus SNOMED Code Problem Sensorineural hearing loss of right ear H90.41 Active 84983053 Problem Obstructive sleep apnea on CPAP G47.33 Active 83021259 Problem Periodic limb movement sleep disorder G47.61 Active 196524965 Problem Fatty liver K76.0 Active 33782495 7 Problem MACHUCA (nonalcoholic steatohepatitis) K75.81 Active 953621811 Problem Hyperlipidemia E78.5 Active 94902 004 Problem Essential hypertension I10 Active 68296803 Problem BMI 50.0-59.9, adult Z68.43 Active 424693233 Problem Type 2 diabetes mellitus with other specified complication E11.69 Active 465775717127 Problem Major depressive disorder, recurrent episode, moderate F33.1 Active 454133090 Problem Acquired hypothyroidism E03.9 Active 770560657 Problem Right upper quadrant pain R10.11 Acti ve 21100896 Problem Anxiety F41.9 Active 64524596 Problem Crohn's disease of both small and large intestin e with complication K50.819 Active 07337116 Problem Chronic tension-type headache, intractable G44.221 Active 405044660 Problem Hyperlipidemia, unspecified E78.5 Ac tive 72445454 Problem Frequent falls R29.6 Active 92888 2001 Problem Vitamin D deficiency E55.9 Active 93452121 Problem Mixed stress and urge urinary incontinence N39.46 Active 469646212 Problem Sinusitis chronic, frontal J32.1 Act katlyn 67149050 Problem Portal hypertension K76.6 Active 82166606 Problem Iron deficiency anemia due to chronic blood loss D 50.0 Active 51414543 Problem Other chronic pain G89.29 Active 8 9426565 Problem Vitamin B12 deficiency E53.8 Active 222100453 Problem Chronic diarrhea K52.9 Active 236 228046 Problem Seasonal allergies J30.2 Active 4 86791755 Problem History of hysterectomy for benign disease Z90.710 Active 956803676 Problem Morbid (severe) obesity due to excess calories E66 .01 Active 667292482 Problem Other cirrhosis of liver K74.69 Activ e 65366182 ALLERGIES No Information ENCOUNTERS Encounter Location Date Diagnosis [facility] [address] [facility] [id number] [address] [place] [address] Dec, Morbid obesity E66.01 ; Low back pain M54.5 ; Other chronic pain G89.29 ; Pain in right knee M25.561 and Essential hypertension I10 [facility] [address] [facility] [id number] [address] [place] [address] Nov, [facility] [address] [address] Oct, Palpitations R00.2 [place] [address] [address] Oct, Encounter for Medicare annua l wellness [...] small and large intestine with complication K50.819 [facility] [address] [facility] [id number] [address] [place] [address] Oct, [facility] [address] [facility] [id number] [address] [place] [address] Oct, Crohn's disease of both smal l and large intestine with complication K50.819 [facility] [address] [facility] [id number] [address] [place] [address] Jul, Sinusitis chronic, frontal J 32.1 ; Acute mucoid otitis media of both ears H65.113 ; Seasonal allergies J30.2 and BMI 50.0-59.9, adult Z68.43 [place] [address] [address] Jul, Essential hypertension I10 ; Type 2 diabetes mellitus with other specified complication E11.69 ; BMI 50.0-59.9, adult Z68.43 ; Mixed stress and urge urinary incontinence N39.46 and Mid back pain on right side M54.9 [place] [address] [address] Jun, Iron deficiency anemia due t o chronic blood loss D50.0 ; Hyperlipidemia E78.5 ; Type 2 diabetes mellitus with other specified complication E11.69 ; Vitamin B12 deficiency E53.8 and Vitamin D deficiency E55.9 [facility] [address] [address] Jun, Cough R05 and BMI 50.0-59.9, adult Z68.43 [place] [address] [address] Jun, [place] [address] [address] May, Iron deficiency anemia due t o chronic blood loss D50.0 ; Chronic diarrhea K52.9 ; Essential hypertension I10 ; Type 2 diabetes mellitus with other specified complication E11.69 ; Vitamin D deficiency E55.9 ; Colon stricture K56.699 ; Vitamin B12 deficiency E53.8 ; Hyperlipidemia E78.5 and BMI 50.0-59.9, adult Z68.43 [place] [address] [address] May, [place] [address] [address] Apr, Nonhealing wound of heel S91 .309A and Body mass index (BMI) of 50- 59.9 in adult Z68.43 [place] [address] [address] Mar, [facility] [address] [address] Mar, BMI 50.0-59.9, adult Z68.43 ; Flank pain R10.9 and Weight loss counseling, encounter for Z71.3 [facility] [address] [address] February, [facility] [address] [address] Jan, [facility] [address] [address] Jan, [facility] [address] [address] Jan, Diarrhea due to staphylococc us A04.8 and Diarrhea, unspecified type R19.7 [place] [address] [address] Jan, Acquired hypothyroidism E03. 9 ; Type 2 diabetes mellitus with other specified complication E11.69 ; Hyperlipidemia E78.5 ; Essential hypertension I10 ; Major depressive disorder, recurrent episode, moderate F33.1 and Vitamin D deficiency E55.9 [place] [address] [address] Jan, Type 2 diabetes mellitus wit h other specified complication E11.69 ; Hyperlipidemia E78.5 ; Essential hypertension I10 ; Acquired hypothyroidism E03.9 ; Major depressive disorder, recurrent episode, moderate F33.1 ; Vitamin D deficiency E55.9 ; Sinus congestion R09.81 and BMI 50.0-59.9, adult Z68.43 [place] [address] [address] Dec, [place] [address] [address] Sep, Encounter for immunization Z 23 [place] [address] [address] Sep, [facility] [address] [facility] [id number] [address] [place] [address] Sep, Vitamin B12 deficiency E53.8 [facility] [address] [facility] [id number] [address] [place] [address] Aug, [facility] [address] [facility] [id number] [address] [place] [address] Aug, BMI 60.0-69.9, adult Z68.44 and Acute non-recurrent maxillary sinusitis J01.00 [facility] [address] [facility] [id number] [address] [place] [address] Aug, [facility] [address] [facility] [id number] [address] [place] [address] Aug, Medicare annual wellness vis it, initial Z00.00 ; Screening for breast cancer Z12.31 ; BMI 40.0-44.9, adult Z68.41 and Acquired hypothyroidism E03.9 [facility] [address] [facility] [id number] [address] [place] [address] Jul, Actinic keratosis L57.0 [facility] [address] [facility] [id number] [address] [place] [address] Jul, Actinic keratosis L57.0 [facility] [address] [facility] [id number] [address] [place] [address] Jul, Type 2 diabetes mellitus wit h other specified complication E11.69 ; Actinic keratosis L57.0 and Hypothyroidism, unspecified E03.9 [facility] [address] [facility] [id number] [address] [place] [address] Jul, [facility] [address] [facility] [id number] [address] [place] [address] Jul, [facility] [address] [facility] [id number] [address] [place] [address] Jul, Vitamin B12 deficiency E53.8 [facility] [address] [place] [id number] [address] [place] [address] Jun, Acquired hypothyroidism E03. 9 and Chronic tension-type headache, intractable G44.221 [place] [address] [place] [id number] [address] [place] [address] Jun, Back muscle spasm M62.830 an d BMI 50.0-59.9, adult Z68.43 [place] [address] [address] Jun, Vitamin B12 deficiency E53.8 [place] [id number] [place] [address] Jun, Crohn's disease of both smal l and large intestine with complication K50.819 [place] [address] [address] Jun, Crohn's disease of both smal l and large intestine with complication K50.819 [place] [address] [address] May, Hyperlipidemia E78.5 ; Anxie ty F41.9 and Essential hypertension I10 [place] [address] [place] [address] May, [place] [address] [address] May, Encounter for immunization Z 23 and Vitamin B12 deficiency E53.8 [place] [address] [place] [id number] [address] [place] [address] May, [place] [address] [place] [id number] [address] [place] [address] Apr, [place] [address] [place] [id number] [address] [place] [address] Apr, [place] [address] [place] [id number] [address] [place] [address] Apr, Crohn's disease of both smal l and large intestine with complication K50.819 [place] [address] [facility] [id number] [address] [place] [address] Apr, Vitamin B12 deficiency E53.8 [facility] [address] [facility] [id number] [address] [place] [address] Apr, Crohn's disease of both smal l and large intestine with complication K50.819 and Acute pain of right shoulder M25.511 [place] [address] [facility] [id number] [address] [place] [address] Mar, Type 2 diabetes mellitus wit hout complication E11.9 ; Frequent falls R29.6 and Other chest pain R07.89 [place] [address] [facility] [id number] [address] [place] [address] Mar, [place] [address] [facility] [id number] [address] [place] [address] Mar, [place] [address] [place] [id number] [address] [place] [address] Mar, Type 2 diabetes mellitus wit hout complication E11.9 and Blurry vision, bilateral H53.8 [place] [address] [facility] [id number] [address] [place] [address] Mar, Vitamin B12 deficiency E53.8 [place] [address] [facility] [id number] [address] [place] [address] Mar, Crohn's disease of both smal l and large intestine with complication K50.819 [place] [address] [facility] [id number] [address] [place] [address] February, Vitamin B12 deficiency E53.8 [place] [address] [facility] [id number] [address] [place] [address] Jan, Crohn's disease of both smal l and large intestine with complication K50.819 [place] [address] [facility] [id number] [address] [place] [address] Jan, Crohn's disease of both smal l and large intestine with complication K50.819 [facility] [address] [facility] [id number] [address] [place] [address] Jan, Dark brown-colored urine R82 .99 and Acute suppurative otitis media of right ear without spontaneous rupture of tympanic membrane, recurrence not specified H66.001 [facility] [address] [facility] [id number] [address] [place] [address] Jan, Encounter for immunization Z 23 [facility] [address] [facility] [id number] [address] [place] [address] Dec, Crohn's disease of both smal l and large intestine with complication K50.819 and Eustachian tube dysfunction, right H69.81 [facility] [address] [facility] [id number] [address] [place] [address] Dec, [facility] [address] [place] [id number] [address] [place] [address] Dec, Contusion of right knee, ini tial encounter S80.01XA [place] [address] [address] [place] [id number] [address] [place] [address] Dec, [facility] [address] [place] [id number] [address] [place] [address] Dec, Acute pain of right knee M25 .561 [facility] [address] [place] [id number] [address] [place] [address] Dec, Iron deficiency anemia due t o chronic blood loss D50.0 [place] [address] [facility] [id number] [address] [place] [address] Dec, Hyperlipidemia E78.5 ; Type 2 diabetes mellitus without complication E11.9 ; Vitamin B12 deficiency E53.8 ; Essential hypertension I10 ; Obstructive sleep apnea on CPAP G47.33 and Periodic limb movement sleep disorder G47.61 [facility] [address] [place] [id number] [address] [place] [address] Nov, Type 2 diabetes mellitus wit hout complication E11.9 ; Vitamin B12 deficiency E53.8 ; Hyperlipidemia E78.5 ; Essential hypertension I10 ; Obstructive sleep apnea on CPAP G47.33 ; Periodic limb movement sleep disorder G47.61 ; Anxiety F41.9 ; Acquired hypothyroidism E03.9 and Chronic tension-type headache, intractable G44.221 [facility] [address] [facility] [id number] [address] [place] [address] 10 Nov, 2016 Crohn's disease of both smal l and large intestine with complication K50.819 [facility] [address] [id number] [address] [place] [address] 10 Nov, 2016 Vitamin B12 deficiency E53.8 [place] [address] [facility] [id number] [address] [place] [address] Oct, [place] [address] [facility] [id number] [address] [place] [address] Oct, Vitamin B12 deficiency E53.8 [place] [address] [facility] [id number] [address] [place] [address] Sep, [place] [address] [facility] [id number] [address] [place] [address] Sep, Vitamin B12 deficiency E53.8 [facility] [address] [facility] [id number] [address] [place] [address] Aug, [place] [address] [facility] [id number] [address] [place] [address] 14 Aug, 2016 Vitamin B12 deficiency E53.8 [place] [address] [facility] [id number] [address] [place] [address] Aug, [place] [address] [facility] [id number] [address] [place] [address] 24 Jul, 2016 Elevated ALT measurement R74 .0 [place] [address] [facility] [id number] [address] [place] [address] Jul, Hematuria R31.9 ; Acute righ t-sided thoracic back pain M54.6 ; Major depressive disorder, recurrent episode, moderate F33.1 and Elevated ALT measurement R74.0 [place] [address] [facility] [id number] [address] [place] [address] Jul, [place] [address] [facility] [id number] [address] [place] [address] Jul, Elevated ALT measurement R74 .0 [place] [address] [place] [id number] [address] [place] [address] Jul, Iron deficiency anemia due t o chronic blood loss D50.0 [place] [address] [address] [place] [id number] [address] [place] [address] 14 Jul, 2016 Type 2 diabetes mellitus wit hout complication E11.9 ; Acquired hypothyroidism E03.9 ; Iron deficiency anemia due to chronic blood loss D50.0 ; Hyperlipidemia E78.5 and Essential hypertension I10 [place] [address] [place] [id number] [address] [place] [address] Jun, [place] [address] [place] [id number] [address] [place] [address] Jun, Vitamin B12 deficiency E53.8 [place] [address] [place] [id number] [place] [address] 16 Jun, 2016 Type 2 diabetes mellitus wit hout complication E11.9 ; Acquired hypothyroidism E03.9 ; Iron deficiency anemia due to chronic blood loss D50.0 ; Hyperlipidemia E78.5 ; Essential hypertension I10 ; Chronic tension-type headache, intractable G44.221 ; Pulsatile tinnitus, bilateral H93.13 ; Obstructive sleep apnea on CPAP G47.33 and Major depressive disorder, recurrent episode, moderate F33.1 [place] [address] [facility] [id number] [address] [place] [address] May, Vitamin B12 deficiency E53.8 [place] [address] [place] [id number] [address] [place] [address] May, [place] [address] [place] [id number] [address] [place] [address] Apr, Vitamin B12 deficiency E53.8 [facility] [address] [id number] [address] [place] [address] 05 Apr, 2016 [facility] [address] [facility] [id number] [address] [place] [address] 28 Mar, 2016 Chronic tension-type headach e, intractable G44.221 and Major depressive disorder, recurrent episode, moderate F33.1 [facility] [address] [id number] [address] [place] [address] 14 Mar, 2016 Vitamin B12 deficiency E53.8 [facility] [address] [id number] [address] [place] [address] February, [facility] [address] [facility] [id number] [address] [place] [address] February, Vitamin B12 deficiency E53.8 [facility] [address] [facility] [id number] [address] [place] [address] February, [facility] [address] [id number] [address] [place] [address] Jan, Dysuria R30.0 [facility] [address] [facility] [id number] [address] [place] [address] Jan, Type 2 diabetes mellitus wit hout complication E11.9 and Essential hypertension I10 [facility] [address] [facility] [id number] [address] [place] [address] 15 Jan, 2016 Chronic diarrhea K52.9 [facility] [address] [facility] [id number] [address] [place] [address] 13 Jan, 2016 [facility] [address] [id number] [address] [place] [address] Jan, Chronic diarrhea K52.9 [facility] [address] [facility] [id number] [address] [place] [address] Jan, [facility] [address] [facility] [id number] [address] [place] [address] Jan, Dysuria R30.0 [facility] [address] [facility] [id number] [address] [place] [address] 07 Jan, 2016 Vitamin B12 deficiency E53.8 [facility] [address] [facility] [id number] [address] [place] [address] 07 Jan, 2016 Dysuria R30.0 and Iron defic iency anemia due to chronic blood loss D50.0 [facility] [address] [facility] [id number] [address] [place] [address] 05 Jan, 2016 Dysuria R30.0 [facility] [address] [facility] [id number] [address] [place] [address] 04 Jan, 2016 [facility] [address] [address] 15 Dec, 2015 [facility] [address] [address] Dec, Iron deficiency anemia due t o chronic blood loss D50.0 [facility] [address] [facility] [id number] [address] [place] [address] 10 Dec, 2015 Dysuria R30.0 ; Fatigue R53. 83 ; Hyperlipidemia E78.5 and Diarrhea R19.7 [facility] [address] [place] [id number] [address] [place] [address] Dec, [facility] [address] [facility] [id number] [address] [place] [address] Dec, [facility] [address] [place] [id number] [address] [place] [address] 10 Nov, 2015 Vitamin B12 deficiency E53.8 [facility] [id number] [place] [address] Oct, Vitamin B12 deficiency E53.8 [facility] [address] [place] [id number] [address] [place] [address] Oct, [facility] [address] [facility] [id number] [address] [place] [address] Oct, Headache R51 [facility] [address] [facility] [id number] [address] [place] [address] Oct, Essential hypertension I10 ; Type 2 diabetes mellitus without complication E11.9 ; Vitamin B12 deficiency E53.8 ; Acquired hypothyroidism E03.9 ; Iron deficiency anemia due to chronic blood loss D50.0 and Hyperlipidemia E78.5 [facility] [address] [place] [id number] [place] [address] Sep, Essential hypertension I10 ; Vitamin B12 deficiency E53.8 ; Iron deficiency anemia due to chronic blood loss D50.0 ; Type 2 diabetes mellitus without complication E11.9 ; Hyperlipidemia E78.5 and Acquired hypothyroidism E03.9 [facility] [address] [address] Sep, [facility] [address] [address] Sep, [facility] [address] [address] Jul, [facility] [address] [address] Jun, [facility] [address] [address] Jun, [facility] [address] [place] [id number] [address] [place] [address] Jun, Hyperlipidemia 272.4 ; Iron deficiency anemia 280.9 ; Hypothyroidism 244.9 ; Diabetes mellitus without mention of complication, type II or unspecified type, not stated as uncontrolled 250.00 and Hypertension 401.9 [facility] [address] [place] [id number] [address] [place] [address] Jun, [facility] [address] [place] [id number] [address] [place] [address] Jun, [facility] [address] [place] [id number] [address] [place] [address] May, Hyperlipidemia 272.4 [facility] [address] [id number] [address] [place] [address] May, [facility] [address] [id number] [address] [place] [id number] May, [facility] [address] [facility] [id number] [address] [place] [id number] Apr, Diabetes mellitus without me ntion of complication, type II or unspecified type, not stated as uncontrolled 250.00 ; Hypothyroidism 244.9 ; Hyperlipidemia 272.4 ; Pain in joint, lower leg 719.46 and RUQ pain 789.01 [facility] [address] [facility] [id number] [address] [place] [id number] Mar, Sinusitis 473.9 [facility] [address] [facility] [id number] [address] [place] [id number] Mar, [facility] [address] [facility] [id number] [address] [place] [id number] Mar, [facility] [address] [facility] [id number] [address] [place] [id number] Mar, Hematochezia 578.1 [facility] [address] [facility] [id number] [address] [place] [id number] February, Sinusitis 473.9 [facility] [address] [id number] [address] [place] [id number] February, [facility] [address] [facility] [id number] [address] [place] [id number] Jan, [facility] [address] [id number] [address] [place] [place] [address] Jan, [facility] [address] [facility] [id number] [address] [place] [address] Dec, [facility] [address] [facility] [id number] [address] [place] [address] Dec, [facility] [address] [id number] [address] [place] [address], [place] [address] 24 Dec, 2014 [facility] [address] [id number] [address] [place] [address], [place] [address] Dec, [facility] [address] [id number] [address] [place] [address], [place] [address] Dec, [facility] [address] [id number] [address] [place] [address], [place] [address] Dec, [facility] [address] [id number] [address] [place] [address], [place] [address] Dec, [facility] [address] [id number] [address] [place] [address], [place] [address] Dec, [facility] [address] [id number] [address] [place] [address], [place] [address] Dec, [facility] [address] [id number] [address] [place] [address], [place] [address] Dec, [facility] [address] [id number] [address] [place] [address], [place] [address] Dec, [facility] [address] [id number] [address] [place] [address], [place] [address] Nov, [facility] [address] [id number] [address] [place] [address], [place] [address] Nov, [facility] [address] [id number] [address] [place] [address], [place] [address] Nov, [facility] [address] [id number] [address] [place] [address], [place] [address] Nov, [facility] [address] [id number] [address] [place] [address], [place] [address] Oct, [facility] [address] [id number] [address] [place] [address], [place] [address] Oct, [facility] [address] [id number] [address] [place] [address], [place] [address] Oct, [facility] [address] [id number] [address] [place] [address], [place] [address] Oct, [facility] [address] [id number] [address] [place] [address], [place] [address] Oct, [facility] [address] [id number] [address] [place] [address], [place] [address] Oct, [facility] [address] [id number] [address] [place] [address], [place] [address] Sep, [facility] [address] [id number] [address] [place] [address], [place] [address] Sep, [facility] [address] [id number] [address] [place] [address], [place] [address] Sep, [facility] [address] [id number] [address] [place] [address], [place] [address] Sep, [facility] [address] [id number] [address] [place] [address], [place] [address] Sep, [facility] [address] [id number] [address] [place] [address], [place] [address] Sep, [facility] [address] [id number] [address] [place] [address], [place] [address] Sep, [facility] [address] [id number] [address] [place] [address], [place] [address] Aug, [facility] [address] [id number] [address] [place] [address], [place] [address] Aug, [facility] [address] [id number] [address] [place] [address], [place] [address] Aug, [facility] [address] [id number] [address] [place] [address], [place] [address] Aug, [facility] [address] [id number] [address] [place] [address], [place] [address] Aug, [facility] [address] [id number] [address] [place] [address], [place] [address] Aug, [facility] [address] [id number] [address] [place] [address], [place] [address] Aug, [facility] [address] [id number] [address] [place] [address], [place] [address] Aug, [facility] [address] [id number] [address] [place] [address], [place] [address] Aug, [facility] [address] [id number] [address] [place] [address], [place] [address] Aug, [facility] [address] [id number] [address] [place] [address], [place] [address] Aug, [facility] [address] [id number] [address] [place] [address], [place] [address] Aug, [facility] [address] [id number] [address] [place] [address], [place] [address] Aug, [facility] [address] [id number] [address] [place] [address], [place] [address] Aug, [facility] [address] [id number] [address] [place] [address], [place] [address] Jul, [facility] [address] [id number] [address] [place] [address], [place] [address] Jul, [facility] [address] [id number] [address] [place] [address], [place] [address] Jul, [facility] [address] [id number] [address] [place] [address], [place] [address] Jul, [facility] [address] [id number] [address] [place] [address], [place] [address] Jun, [facility] [address] [id number] [address] [place] [address], [place] [address] 24 Jun, 2014 [facility] [address] [id number] [address] [place] [address], [place] [address] 23 Jun, 2014 [facility] [address] [id number] [facility] [place] [address] 23 Jun, 2013 [facility] [address] [id number] [address] [place] [address], [place] [address] Jun, 2013 [facility] [address] [id number] [address] [place] [address], [place] [address] 19 Jun, 2013 [facility] [address] [id number] [address] [place] [address], [place] [address] 11 Jun, 2013 [facility] [address] [id number] [address] [place] [address], [place] [address] 11 Jun, 2013 [facility] [address] [id number] [address] [place] [address], [place] [address] Jun, 2013 [facility] [address] [id number] [address] [place] [address], [place] [address] Jun, 2013 [facility] [address] [id number] [address] [place] [address], [place] [address] Jun, 2013 [facility] [address] [id number] [address] [place] [address], [place] [address] Jun, [facility] [address] [id number] [address] [place] [address], [place] [address] Jun, [facility] [address] [id number] [address] [place] [address], [place] [address] Jun, [facility] [address] [id number] [address] [place] [address], [place] [address] 14 May, 2014 [facility] [address] [id number] [address] [place] [address], [place] [address] May, [facility] [address] [id number] [address] [place] [address], [place] [address] May, [facility] [address] [id number] [address] [place] [address], [place] [address] May, [facility] [address] [id number] [address] [place] [address], [place] [address] May, [facility] [address] [id number] [facility] [place] [address] May, [facility] [address] [id number] [address] [place] [address], [place] [address] Apr, [facility] [address] [id number] [address] [place] [address], [place] [address] Apr, [facility] [address] [id number] [address] [place] [address], [place] [address] Apr, [facility] [address] [id number] [address] [place] [address], [place] [address] Apr, [facility] [address] [id number] [address] [place] [address], [place] [address] Apr, [facility] [address] [id number] [address] [place] [address], [place] [address] Apr, [facility] [address] [id number] [address] [place] [address], [place] [address] Apr, [facility] [address] [id number] [address] [place] [address], [place] [address] Apr, [facility] [address] [id number] [address] [place] [address], [place] [address] Apr, [facility] [address] [id number] [address] [place] [address], [place] [address] Apr, [facility] [address] [id number] [address] [place] [address], [place] [address] Apr, [facility] [address] [id number] [address] [place] [address], [place] [address] Mar, [facility] [address] [id number] [address] [place] [address], [place] [address] Mar, [facility] [address] [id number] [address] [place] [address], [place] [address] Mar, [facility] [address] [id number] [address] [place] [address], [place] [address] Mar, [facility] [address] [id number] [address] [place] [address], [place] [address] February, [facility] [address] [id number] [address] [place] [address], [place] [address] February, [facility] [address] [id number] [address] [place] [address], [place] [address] Jan, [facility] [address] [id number] [address] [place] [address], [place] [address] Jan, [facility] [address] [place], [place] [id number] Jan, [facility] [address] [id number] [address] [place] [address], [place] [address] Jan, [facility] [address] [id number] [address] [place] [address], [place] [address] Jan, [facility] [address] [id number] [address] [place] [address], [place] [address] Jan, [facility] [address] [id number] [address] [place] [address], [place] [address] Jan, [facility] [address] [id number] [address] [place] [address], [place] [address] Jan, [facility] [address] [id number] [address] [place] [address], [place] [address] Jan, [facility] [address] [id number] [address] [place] [address], [place] [address] Jan, [facility] [address] [id number] [address] [place] [address], [place] [address] Jan, [facility] [address] [id number] [address] [place] [address], [place] [address] Jan, [facility] [address] [id number] [address] [place] [address], [place] [address] Jan, [facility] [address] [id number] [facility] [place] [address] 07 Jan, 2014 [facility] [address] [id number] [facility] [place] [address] Jan, [facility] [address] [id number] [facility] [place] [address] Jan, [facility] [address] [id number] [address] [place] [address], [place] [address] Jan, [facility] [address] [id number] [address] [place] [address], [place] [address] Dec, [facility] [address] [id number] [address] [place] [address], [place] [address] Dec, [facility] [address] [id number] [address] [place] [address], [place] [address] Dec, [facility] [address] [id number] [address] [place] [address], [place] [address] Dec, [facility] [address] [id number] [address] [place] [address], [place] [address] Dec, [facility] [address] [id number] [address] [place] [address], [place] [address] Dec, [facility] [address] [id number] [address] [place] [address], [place] [address] Dec, [facility] [address] [id number] [address] [place] [address], [place] [address] Nov, [facility] [address] [id number] [address] [place] [address], [place] [address] Nov, [facility] [address] [id number] [address] [place] [address], [place] [address] Nov, [facility] [address] [id number] [address] [place] [address], [place] [address] Nov, [facility] [address] [id number] [address] [place] [address], [place] [address] Nov, [facility] [address] [id number] [address] [place] [address], [place] [address] Nov, [facility] [address] [id number] [address] [place] [address], [place] [address] Nov, [facility] [address] [id number] [address] [place] [address], [place] [address] Oct, [facility] [address] [id number] [address] [place] [address], [place] [address] Oct, [facility] [address] [id number] [address] [place] [address], [place] [address] Sep, [facility] [address] [id number] [address] [place] [address], [place] [address] Sep, [facility] [address] [id number] [address] [place] [address], [place] [address] Sep, [facility] [address] [id number] [address] [place] [address], [place] [address] Sep, [facility] [address] [id number] [address] [place] [address], [place] [address] Sep, [facility] [address] [id number] [address] [place] [address], [place] [address] Sep, [facility] [address] [id number] [address] [place] [address], [place] [address] Sep, [facility] [address] [id number] [address] [place] [address], [place] [address] Sep, [facility] [address] [id number] [address] [place] [address], [place] [address] Sep, [facility] [address] [id number] [address] [place] [address], [place] [address] Sep, [facility] [address] [id number] [address] [place] [address], [place] [address] Aug, [facility] [address] [id number] [address] [place] [id number] Aug, [facility] [address] [id number] [address] [place] [address] Aug, [facility] [address] [id number] [address] [place] [address] Aug, [facility] [address] [id number] [address] [place] [address] Aug, [facility] [address] [id number] [address] [place] [address] Jul, [facility] [address] [id number] [address] [place] [address] Jul, [facility] [address] [id number] [address] [place] [address] Jul, [facility] [address] [id number] [address] [place] [id number] Jul, IMMUNIZATIONS No Known Immunizations SOCIAL HISTORY Never Assessed REASON FOR VISIT [place] [place] VITAL SIGNS MEDICATIONS No [...]
--- OUTSIDE RECORDS SUMMARY | 2020-03-16 12:02 | XMS REPORT ---
Author Author Ingrid, Swathi Doctor Organization [facility] Address Unknown Phone Unavailable Care Team Providers Care Project Inspector Name Role Phone Migration, Doctor Unavailable Unavailable PROBLEMS Type Condition ICD9-CM Code RMV83-LS Code Onset Dates Condition S tatus SNOMED Code Problem Sensorineural hearing loss of right ear H90.41 Active 83343556 Problem Obstructive sleep apnea on CPAP G47.33 Active 26384587 Problem Periodic limb movement sleep disorder G47.61 Active 113077044 Problem Fatty liver K76.0 Active 67016588 7 Problem MACHUCA (nonalcoholic steatohepatitis) K75.81 Active 422256318 Problem Hyperlipidemia E78.5 Active 88049 004 Problem Essential hypertension I10 Active 77003467 Problem BMI 50.0-59.9, adult Z68.43 Active 103036978 Problem Type 2 diabetes mellitus with other specified complication E11.69 Active 455418544097 Problem Major depressive disorder, recurrent episode, moderate F33.1 Active 347711703 Problem Acquired hypothyroidism E03.9 Active 476712339 Problem Right upper quadrant pain R10.11 Acti ve 46543046 Problem Anxiety F41.9 Active 68686094 Problem Crohn's disease of both small and large intestin e with complication K50.819 Active 28307973 Problem Chronic tension-type headache, intractable G44.221 Active 640954830 Problem Hyperlipidemia, unspecified E78.5 Ac tive 59129688 Problem Frequent falls R29.6 Active 05858 2001 Problem Vitamin D deficiency E55.9 Active 33503435 Problem Mixed stress and urge urinary incontinence N39.46 Active 757365253 Problem Sinusitis chronic, frontal J32.1 Act katlyn 41590309 Problem Portal hypertension K76.6 Active 41406762 Problem Iron deficiency anemia due to chronic blood loss D 50.0 Active 08636470 Problem Other chronic pain G89.29 Active 8 2555490 Problem Vitamin B12 deficiency E53.8 Active 388667654 Problem Chronic diarrhea K52.9 Active 236 285707 Problem Seasonal allergies J30.2 Active 4 81878899 Problem History of hysterectomy for benign disease Z90.710 Active 335597125 Problem Morbid (severe) obesity due to excess calories E66 .01 Active 898178624 Problem Other cirrhosis of liver K74.69 Activ e 91488344 ALLERGIES No Information ENCOUNTERS Encounter Location Date Diagnosis [place] [id number] [place] [id number] Jan, [place] [address] [address] Jan, [place] [address] [address] [place] [id number] [place] [address] Dec, Trigeminy R00.8 [place] [address] [address] Dec, Essential hypertension I10 ; Morbid obesity E66.01 ; Low back pain M54.5 ; Other chronic pain G89.29 and Pain in right knee M25.561 [place] [address] [address] [place] [id number] [place] [address] 22 Nov, 2018 [place] [address] [address] Oct, Palpitations R00.2 [place] [address] [address] [place] [id number] [place] [address] Oct, Encounter for Medicare annua l wellness [...] small and large intestine with complication K50.819 [place] [address] [address] [place] [id number] [place] [address] Oct, [place] [address] [address] Oct, Crohn's disease of both smal l and large intestine with complication K50.819 [facility] [place] [address] [address] Jul, Sinusitis chronic, frontal J 32.1 ; Acute mucoid otitis media of both ears H65.113 ; Seasonal allergies J30.2 and BMI 50.0-59.9, adult Z68.43 [place] [address] [address] Jul, Essential hypertension I10 ; Type 2 diabetes mellitus with other specified complication E11.69 ; BMI 50.0-59.9, adult Z68.43 ; Mixed stress and urge urinary incontinence N39.46 and Mid back pain on right side M54.9 [place] [address] [address] Jun, Iron deficiency anemia due t o chronic blood loss D50.0 ; Hyperlipidemia E78.5 ; Type 2 diabetes mellitus with other specified complication E11.69 ; Vitamin B12 deficiency E53.8 and Vitamin D deficiency E55.9 [facility] [place] [address] [address] Jun, Cough R05 and BMI 50.0-59.9, adult Z68.43 [place] [address] [address] Jun, [address] [address] May, Iron deficiency anemia due t o chronic blood loss D50.0 ; Chronic diarrhea K52.9 ; Essential hypertension I10 ; Type 2 diabetes mellitus with other specified complication E11.69 ; Vitamin D deficiency E55.9 ; Colon stricture K56.699 ; Vitamin B12 deficiency E53.8 ; Hyperlipidemia E78.5 and BMI 50.0-59.9, adult Z68.43 [place] [address] [address] May, [facility] [address] [address] Apr, Nonhealing wound of heel S91 .309A and Body mass index (BMI) of 50- 59.9 in adult Z68.43 [place] [address] [address] Mar, [place] [address] [address] Mar, BMI 50.0-59.9, adult Z68.43 ; Flank pain R10.9 and Weight loss counseling, encounter for Z71.3 [place] [address] [address] February, [place] [address] [address] Jan, [place] [address] [address] Jan, [facility] [address] [address] Jan, Diarrhea due to staphylococc us A04.8 and Diarrhea, unspecified type R19.[address] [address] Jan, Acquired hypothyroidism E03. 9 ; Type 2 diabetes mellitus with other specified complication E11.69 ; Hyperlipidemia E78.5 ; Essential hypertension I10 ; Major depressive disorder, recurrent episode, moderate F33.1 and Vitamin D deficiency E55.[address] [address] Jan, Type 2 diabetes mellitus wit h other specified complication E11.69 ; Hyperlipidemia E78.5 ; Essential hypertension I10 ; Acquired hypothyroidism E03.9 ; Major depressive disorder, recurrent episode, moderate F33.1 ; Vitamin D deficiency E55.9 ; Sinus congestion R09.81 and BMI 50.0-59.9, adult Z68.43 [place] [address] [address] [place] [id number] [place] [address] Dec, [place] [address] [address] Sep, Encounter for immunization Z 23 [place] [address] [address] Sep, [place] [address] [address] Sep, Vitamin B12 deficiency E53.8 [place] [address] [address] Aug, [place] [address] [address] Aug, BMI 60.0-69.9, adult Z68.44 and Acute non-recurrent maxillary sinusitis J01.00 [place] [address] [address] 14 Aug, 2017 [place] [address] [address] 02 Aug, 2017 Medicare annual wellness vis it, initial Z00.00 ; Screening for breast cancer Z12.31 ; BMI 40.0-44.9, adult Z68.41 and Acquired hypothyroidism E03.9 [place] [address] [address] [place] [id number] [place] [address] Jul, Actinic keratosis L57.0 [place] [address] [address] [place] [id number] [place] [address] Jul, Actinic keratosis L57.0 [place] [address] [address] [place] [id number] [place] [address] Jul, Type 2 diabetes mellitus wit h other specified complication E11.69 ; Actinic keratosis L57.0 and Hypothyroidism, unspecified E03.9 [place] [address] [address] [place] [address] [place] [address] Jul, [facility] [address] [place] [id number] [place] [address] Jul, [facility] [address] [place] [id number] [place] [address] Jul, Vitamin B12 deficiency E53.8 [place] [address] [address] Jun, Acquired hypothyroidism E03. 9 and Chronic tension-type headache, intractable G44.221 [place] [address] [address] Jun, Back muscle spasm M62.830 an d BMI 50.0-59.9, adult Z68.43 [place] [address] [address] Jun, Vitamin B12 deficiency E53.8 [place] [address] [address] Jun, Crohn's disease of both smal l and large intestine with complication K50.819 [place] [address] [address] Jun, Crohn's disease of both smal l and large intestine with complication K50.819 [place] [address] [address] May, Hyperlipidemia E78.5 ; Anxie ty F41.9 and Essential hypertension I10 [place] [address] [address] May, [place] [address] [address] May, Encounter for immunization Z 23 and Vitamin B12 deficiency E53.8 [place] [address] [address] May, [facility] [address] [id number] [address] [place] [address] Apr, [place] [address] [address] [facility] [id number] [address] [place] [address] Apr, [facility] [address] [facility] [id number] [address] [place] [address] Apr, Crohn's disease of both smal l and large intestine with complication K50.819 [place] [address] [address] [facility] [id number] [address] [place] [address] Apr, Vitamin B12 deficiency E53.8 [place] [address] [address] [facility] [id number] [address] [place] [address] Apr, Crohn's disease of both smal l and large intestine with complication K50.819 and Acute pain of right shoulder M25.511 [place] [address] [address] [place] [id number] [place] [address] Mar, Type 2 diabetes mellitus wit hout complication E11.9 ; Frequent falls R29.6 and Other chest pain R07.89 [place] [address] [address] [facility] [id number] [address] [place] [address] Mar, [place] [address] [facility] [id number] [address] [place] [address] Mar, [place] [address] [address] [facility] [id number] [address] [place] [address] Mar, Type 2 diabetes mellitus wit hout complication E11.9 and Blurry vision, bilateral H53.8 [place] [address] [facility] [id number] [address] [place] [address] Mar, Vitamin B12 deficiency E53.8 [place] [address] [facility] [id number] [address] [place] [address] Mar, Crohn's disease of both smal l and large intestine with complication K50.819 [place] [address] [facility] [id number] [address] [place] [address] February, Vitamin B12 deficiency E53.8 [facility] [address] [id number] [address] [place] [address] Jan, Crohn's disease of both smal l and large intestine with complication K50.819 [facility] [address] [facility] [id number] [address] [place] [address] Jan, Crohn's disease of both smal l and large intestine with complication K50.819 [facility] [address] [id number] [address] [place] [address] Jan, Dark brown-colored urine R82 .99 and Acute suppurative otitis media of right ear without spontaneous rupture of tympanic membrane, recurrence not specified H66.001 [facility] [address] [facility] [id number] [address] [place] [address] Jan, Encounter for immunization Z 23 [place] [address] [address] [facility] [id number] [address] [place] [address] Dec, Crohn's disease of both smal l and large intestine with complication K50.819 and Eustachian tube dysfunction, right H69.81 [place] [address] [address] [facility] [id number] [address] [place] [address] Dec, [facility] [address] [facility] [id number] [address] [place] [address] 16 Dec, 2016 Contusion of right knee, ini tial encounter S80.01XA [facility] [address] [id number] [address] [place] [address] Dec, [place] [address] [address] [facility] [id number] [address] [place] [address] Dec, Acute pain of right knee M25 .561 [place] [address] [address] [facility] [id number] [address] [place] [address] 09 Dec, 2016 Iron deficiency anemia due t o chronic blood loss D50.0 [place] [address] [address] [place] [id number] [place] [address] 09 Dec, 2016 Hyperlipidemia E78.5 ; Type 2 diabetes mellitus without complication E11.9 ; Vitamin B12 deficiency E53.8 ; Essential hypertension I10 ; Obstructive sleep apnea on CPAP G47.33 and Periodic limb movement sleep disorder G47.61 [facility] [address] [facility] [id number] [address] [place] [address] 22 Nov, 2016 Type 2 diabetes mellitus wit hout complication E11.9 ; Vitamin B12 deficiency E53.8 ; Hyperlipidemia E78.5 ; Essential hypertension I10 ; Obstructive sleep apnea on CPAP G47.33 ; Periodic limb movement sleep disorder G47.61 ; Anxiety F41.9 ; Acquired hypothyroidism E03.9 and Chronic tension-type headache, intractable G44.221 [place] [address] [address] [place] [id number] [place] [address] 10 Nov, 2016 Crohn's disease of both smal l and large intestine with complication K50.819 [place] [id number] [place] [address] Nov, Vitamin B12 deficiency E53.8 [place] [id number] [place] [address] Oct, [place] [id number] [place] [address] Oct, Vitamin B12 deficiency E53.8 [place] [address] [address] [place] [id number] [place] [address] Sep, [facility] [address] [place] [id number] [place] [address] Sep, Vitamin B12 deficiency E53.8 [facility] [address] [place] [id number] [place] [phone] Aug, [place] [address] [place] [id number] [place] [address] 14 Aug, 2016 Vitamin B12 deficiency E53.8 [place] [address] [address] [place] [id number] [place] [address] Aug, [facility] [address] [facility] [id number] [address] [place] [address] Jul, Elevated ALT measurement R74 .0 [facility] [address] [facility] [id number] [address] [place] [address] Jul, Hematuria R31.9 ; Acute righ t-sided thoracic back pain M54.6 ; Major depressive disorder, recurrent episode, moderate F33.1 and Elevated ALT measurement R74.0 [facility] [address] [id number] [address] [place] [address] Jul, [facility] [address] [facility] [id number] [address] [place] [id number] Jul, Elevated ALT measurement R74 .0 [place] [address] [address] [facility] [id number] [address] [place] [address] Jul, Iron deficiency anemia due t o chronic blood loss D50.0 [facility] [address] [facility] [id number] [address] [place] [address] 14 Jul, 2016 Type 2 diabetes mellitus wit hout complication E11.9 ; Acquired hypothyroidism E03.9 ; Iron deficiency anemia due to chronic blood loss D50.0 ; Hyperlipidemia E78.5 and Essential hypertension I10 [place] [id number] [facility] [id number] [address] [place] [address] 26 Jun, 2016 [place] [address] [address] [facility] [id number] [address] [place] [address] 20 Jun, 2016 Vitamin B12 deficiency E53.8 [place] [address] [address] [facility] [id number] [address] [place] [address] 16 Jun, 2016 Type 2 diabetes mellitus wit hout complication E11.9 ; Acquired hypothyroidism E03.9 ; Iron deficiency anemia due to chronic blood loss D50.0 ; Hyperlipidemia E78.5 ; Essential hypertension I10 ; Chronic tension-type headache, intractable G44.221 ; Pulsatile tinnitus, bilateral H93.13 ; Obstructive sleep apnea on CPAP G47.33 and Major depressive disorder, recurrent episode, moderate F33.1 [facility] [address] [id number] [address] [place] [address] 16 May, 2016 Vitamin B12 deficiency E53.8 [facility] [address] [id number] [address] [place] [address] 08 May, 2016 [facility] [address] [facility] [id number] [address] [place] [address] Apr, Vitamin B12 deficiency E53.8 [facility] [address] [id number] [address] [place] [address] 05 Apr, 2016 [facility] [address] [id number] [address] [place] [address] Mar, Chronic tension-type headach e, intractable G44.221 and Major depressive disorder, recurrent episode, moderate F33.1 [facility] [address] [id number] [address] [place] [address] 14 Mar, 2016 Vitamin B12 deficiency E53.8 [facility] [address] [id number] [address] [place] [address] February, [facility] [address] [facility] [id number] [address] [place] [address] February, Vitamin B12 deficiency E53.8 [facility] [address] [facility] [id number] [address] [place] [address] February, [facility] [address] [facility] [id number] [address] [place] [address] Jan, Dysuria R30.0 [facility] [address] [facility] [id number] [address] [place] [address] Jan, Type 2 diabetes mellitus wit hout complication E11.9 and Essential hypertension I10 [facility] [address] [facility] [id number] [address] [place] [id number] 15 Jan, 2016 Chronic diarrhea K52.9 [facility] [address] [facility] [id number] [address] [place] [id number] 13 Jan, 2016 [facility] [address] [facility] [id number] [address] [place] [address] Jan, Chronic diarrhea K52.9 [facility] [address] [facility] [id number] [address] [place] [address] Jan, [facility] [address] [facility] [id number] [address] [place] [id number] Jan, Dysuria R30.0 [facility] [address] [facility] [id number] [address] [place] [address] Jan, Vitamin B12 deficiency E53.8 [facility] [address] [facility] [id number] [address] [place] [address] 07 Jan, 2016 Dysuria R30.0 and Iron defic iency anemia due to chronic blood loss D50.0 [facility] [address] [place] [id number] [place] [id number] 05 Jan, 2016 Dysuria R30.0 [facility] [address] [place] [id number] [place] [address] Jan, [facility] [address] [place] [id number] [place] [address] 15 Dec, 2015 [facility] [address] [place] [id number] [place] [address] Dec, Iron deficiency anemia due t o chronic blood loss D50.0 [facility] [address] [place] [id number] [place] [id number] 10 Dec, 2015 Dysuria R30.0 ; Fatigue R53. 83 ; Hyperlipidemia E78.5 and Diarrhea R19.7 [facility] [address] [facility] [id number] [address] [place] [id number] 09 Dec, 2015 [facility] [address] [place] [id number] [place] [phone] Dec, [facility] [id number] [place] [id number] 10 Nov, 2015 Vitamin B12 deficiency E53.8 [facility] [address] [facility] [id number] [address] [place] [id number] Oct, Vitamin B12 deficiency E53.8 [facility] [address] [facility] [id number] [address] [place] [address] Oct, [facility] [address] [facility] [id number] [address] [place] [id number] 09 Oct, 2015 Headache R51 [facility] [address] [facility] [id number] [address] [place] [id number] 07 Oct, 2015 Essential hypertension I10 ; Type 2 diabetes mellitus without complication E11.9 ; Vitamin B12 deficiency E53.8 ; Acquired hypothyroidism E03.9 ; Iron deficiency anemia due to chronic blood loss D50.0 and Hyperlipidemia E78.5 [facility] [address] [facility] [id number] [address] [place] [address] 17 Sep, 2015 Essential hypertension I10 ; Vitamin B12 deficiency E53.8 ; Iron deficiency anemia due to chronic blood loss D50.0 ; Type 2 diabetes mellitus without complication E11.9 ; Hyperlipidemia E78.5 and Acquired hypothyroidism E03.9 [facility] [id number] [place] [address] 08 Sep, 2015 [facility] [address] [facility] [id number] [address] [place] [address] Sep, [facility] [id number] [place] [address] 05 Jul, 2015 [facility] [address] [facility] [id number] [address] [place] [id number] 29 Jun, 2015 [facility] [id number] [place] [phone] 18 Jun, 2015 [facility] [address] [place] [id number] [address] [place] [id number] 15 Jun, 2015 Hyperlipidemia 272.4 ; Iron deficiency anemia 280.9 ; Hypothyroidism 244.9 ; Diabetes mellitus without mention of complication, type II or unspecified type, not stated as uncontrolled 250.00 and Hypertension 401.9 [facility] [address] [id number] [address] [place] [id number] Jun, [facility] [address] [id number] [address] [place] [id number] Jun, [facility] [address] [facility] [id number] [address] [place] [phone] May, Hyperlipidemia 272.4 [facility] [address] [id number] [address] [place] [address] May, [facility] [address] [facility] [id number] [address] [place] [address] May, [facility] [address] [facility] [id number] [address] [place] [address] Apr, Diabetes mellitus without me ntion of complication, type II or unspecified type, not stated as uncontrolled 250.00 ; Hypothyroidism 244.9 ; Hyperlipidemia 272.4 ; Pain in joint, lower leg 719.46 and RUQ pain 789.01 [facility] [address] [facility] [id number] [address] [place] [address] Mar, Sinusitis 473.9 [facility] [address] [facility] [id number] [address] [place] [address] Mar, [facility] [address] [facility] [id number] [address] [place] [address] Mar, [facility] [address] [facility] [id number] [address] [place] [address] Mar, Hematochezia 578.1 [facility] [address] [facility] [id number] [address] [place] [address] February, Sinusitis 473.9 [facility] [address] [facility] [id number] [address] [place] [address] February, [facility] [address] [facility] [id number] [address] [place] [address] Jan, [facility] [address] [id number] [address] [place] [address], [place] [address] Jan, [facility] [address] [id number] [address] [place] [address], [place] [address] 24 Dec, 2014 [facility] [address] [id number] [address] [place] [address], [place] [address] Dec, [facility] [address] [id number] [address] [place] [address], [place] [address] Dec, [facility] [address] [id number] [address] [place] [address], [place] [address] Dec, [facility] [address] [id number] [address] [place] [address], [place] [address] Dec, [facility] [address] [id number] [address] [place] [address], [place] [address] Dec, [facility] [address] [id number] [address] [place] [address], [place] [address] Dec, [facility] [address] [id number] [address] [place] [address], [place] [address] Dec, [facility] [address] [id number] [address] [place] [address], [place] [address] Dec, [facility] [address] [id number] [address] [place] [address], [place] [address] Dec, [facility] [address] [id number] [address] [place] [address], [place] [address] Dec, [facility] [address] [id number] [address] [place] [address], [place] [address] Nov, [facility] [address] [id number] [address] [place] [address], [place] [address] Nov, [facility] [address] [id number] [address] [place] [address], [place] [address] 17 Nov, 2014 [facility] [address] [id number] [address] [place] [address], [place] [address] Nov, [facility] [address] [id number] [address] [place] [address], [place] [address] Oct, [facility] [address] [id number] [address] [place] [address], [place] [address] Oct, [facility] [address] [id number] [address] [place] [address], [place] [address] Oct, [facility] [address] [id number] [address] [place] [address], [place] [address] Oct, [facility] [address] [id number] [address] [place] [address], [place] [address] Oct, [facility] [address] [id number] [address] [place] [address], [place] [address] Oct, [facility] [address] [id number] [address] [place] [address], [place] [address] Sep, [facility] [address] [id number] [address] [place] [address], [place] [address] Sep, [facility] [address] [id number] [address] [place] [address], [place] [address] Sep, [facility] [address] [id number] [address] [place] [address], [place] [address] Sep, [facility] [address] [id number] [address] [place] [address], [place] [address] Sep, [facility] [address] [id number] [address] [place] [address], [place] [address] Sep, [facility] [address] [id number] [address] [place] [address], [place] [address] Sep, [facility] [address] [id number] [address] [place] [address], [place] [address] Aug, [facility] [address] [id number] [address] [place] [address], [place] [address] Aug, [facility] [address] [id number] [address] [place] [address], [place] [address] Aug, [facility] [address] [id number] [address] [place] [address], [place] [address] Aug, [facility] [address] [id number] [address] [place] [address], [place] [address] Aug, [facility] [address] [id number] [address] [place] [address], [place] [address] Aug, [facility] [address] [id number] [address] [place] [address], [place] [address] Aug, [facility] [address] [id number] [address] [place] [address], [place] [address] Aug, [facility] [address] [id number] [address] [place] [address], [place] [address] Aug, [facility] [address] [id number] [address] [place] [address], [place] [address] Aug, [facility] [address] [id number] [address] [place] [address], [place] [address] Aug, [facility] [address] [id number] [address] [place] [address], [place] [address] Aug, [facility] [address] [id number] [address] [place] [address], [place] [address] Aug, [facility] [address] [id number] [address] [place] [address], [place] [address] Aug, [facility] [address] [id number] [address] [place] [address], [place] [address] Jul, [facility] [address] [id number] [address] [place] [address], [place] [address] Jul, [facility] [address] [id number] [address] [place] [address], [place] [address] Jul, [facility] [address] [id number] [address] [place] [address], [place] [address] 06 Jul, 2014 [facility] [address] [id number] [facility] [place] [address] 24 Jun, 2013 [facility] [address] [id number] [facility] [place] [address] 24 Jun, 2013 [facility] [address] [id number] [address] [place] [address], [place] [address] 23 Jun, 2013 [facility] [address] [id number] [address] [place] [address], [place] [address] 23 Jun, 2013 [facility] [address] [id number] [address] [place] [address], [place] [address] 19 Jun, 2013 [facility] [address] [id number] [address] [place] [address], [place] [address] 19 Jun, 2013 [facility] [address] [id number] [address] [place] [address], [place] [address] 11 Jun, 2013 [facility] [address] [id number] [address] [place] [address], [place] [address] 11 Jun, 2013 [facility] [address] [id number] [address] [place] [address], [place] [address] 11 Jun, 2013 [facility] [address] [id number] [address] [place] [address], [place] [address] 11 Jun, 2013 [facility] [address] [id number] [address] [place] [address], [place] [address] 10 Jun, 2013 [facility] [address] [id number] [address] [place] [address], [place] [address] 10 Jun, 2013 [facility] [address] [id number] [address] [place] [address], [place] [address] 09 Jun, 2013 [facility] [address] [id number] [address] [place] [address], [place] [address] 09 Jun, 2013 [facility] [address] [id number] [address] [place] [address], [place] [address] 14 May, 2014 [facility] [address] [id number] [facility] [place] [address] May, [facility] [address] [id number] [facility] [place] [address] May, [facility] [address] [id number] [facility] [place] [address] May, [facility] [address] [id number] [address] [place] [address], [place] [address] May, [facility] [address] [id number] [address] [place] [address], [place] [address] May, [facility] [address] [id number] [address] [place] [address], [place] [address] Apr, [facility] [address] [id number] [address] [place] [address], [place] [address] Apr, [facility] [address] [id number] [address] [place] [address], [place] [address] Apr, [facility] [address] [id number] [address] [place] [address], [place] [address] Apr, [facility] [address] [id number] [address] [place] [address], [place] [address] Apr, [facility] [address] [id number] [address] [place] [address], [place] [address] Apr, [facility] [address] [id number] [address] [place] [address], [place] [address] Apr, [facility] [address] [id number] [address] [place] [address], [place] [address] Apr, [facility] [address] [id number] [address] [place] [address], [place] [address] Apr, [facility] [address] [id number] [address] [place] [address], [place] [address] Apr, [facility] [address] [id number] [address] [place] [address], [place] [address] Apr, [facility] [address] [id number] [address] [place] [address], [place] [address] Mar, [facility] [address] [id number] [address] [place] [address], [place] [address] Mar, [facility] [address] [id number] [address] [place] [address], [place] [address] Mar, [facility] [address] [id number] [address] [place] [address], [place] [address] Mar, [facility] [address] [id number] [address] [place] [address], [place] [address] February, [facility] [address] [id number] [address] [place] [address], [place] [address] February, [facility] [address] [id number] [address] [place] [address], [place] [address] Jan, [facility] [address] [id number] [address] [place] [address], [place] [address] Jan, [facility] [address] [place] [id number] Jan, [facility] [address] [id number] [address] [place] [address], [place] [address] Jan, [facility] [address] [id number] [address] [place] [address], [place] [address] Jan, [facility] [address] [id number] [address] [place] [address], [place] [address] Jan, [facility] [address] [id number] [address] [place] [address], [place] [address] Jan, [facility] [address] [id number] [address] [place] [address], [place] [address] Jan, [facility] [address] [id number] [address] [place] [address], [place] [address] Jan, [facility] [address] [id number] [address] [place] [address], [place] [address] Jan, [facility] [address] [id number] [address] [place] [address], [place] [address] Jan, [facility] [address] [id number] [address] [place] [address], [place] [address] Jan, [facility] [address] [id number] [address] [place] [address], [place] [address] Jan, [facility] [address] [id number] [address] [place] [address], [place] [address] Jan, [facility] [address] [id number] [address] [place] [address], [place] [address] Jan, [facility] [address] [id number] [address] [place] [address], [place] [address] Jan, [facility] [address] [id number] [address] [place] [address], [place] [address] Jan, [facility] [address] [id number] [address] [place] [address], [place] [address] Dec, [facility] [address] [id number] [address] [place] [address], [place] [address] Dec, [facility] [address] [id number] [address] [place] [address], [place] [address] Dec, [facility] [address] [id number] [address] [place] [address], [place] [address] Dec, [facility] [address] [id number] [address] [place] [address], [place] [address] Dec, [facility] [address] [id number] [address] [place] [address], [place] [address] Dec, [facility] [address] [id number] [address] [place] [address], [place] [address] Dec, [facility] [address] [id number] [address] [place] [address], [place] [address] Nov, [facility] [address] [id number] [address] [place] [address] Nov, [facility] [address] [id number] [address] [place] [address], [place] [address] Nov, [facility] [address] [id number] [address] [place] [address], [place] [address] Nov, [facility] [address] [id number] [address] [place] [address], [place] [address] Nov, [facility] [address] [id number] [address] [place] [address], [place] [address] Nov, [facility] [address] [id number] [address] [place] [address], [place] [address] Nov, [facility] [address] [id number] [address] [place] [address], [place] [address] Oct, [facility] [address] [id number] [address] [place] [address], [place] [address] Oct, [facility] [address] [id number] [address] [place] [address], [place] [address] Sep, [facility] [address] [id number] [address] [place] [address], [place] [address] Sep, [facility] [address] [id number] [address] [place] [address], [place] [address] Sep, [facility] [address] [id number] [address] [place] [address], [place] [address] Sep, [facility] [address] [id number] [address] [place] [address], [place] [address] Sep, [facility] [address] [id number] [address] [place] [address], [place] [address] Sep, [facility] [address] [id number] [address] [place] [address], [place] [address] Sep, [facility] [address] [id number] [address] [place] [address], [place] [address] Sep, [facility] [address] [id number] [address] [place] [address] Sep, [facility] [address] [id number] [address] [place] [address] Sep, [facility] [address] [id number] [address] [place] [address] Aug, [facility] [address] [id number] [address] [place] [address] Aug, [facility] [address] [id number] [address] [place] [address] Aug, [facility] [address] [id number] [address] [place] [address] Aug, [facility] [address] [id number] [address] [place] [address] Aug, [facility] [address] [id number] [address] [place] [address] Jul, [facility] [address] [id number] [address] [place] [address] Jul, [facility] [address] [id number] [address] [place] [address] Jul, [facility] [address] [id number] [address] [place] [address] Jul, IMMUNIZATIONS No Known Immunizations SOCIAL HISTORY Never Assessed REASON FOR VISIT [facility] PLAN OF CARE VITAL SIGNS MEDICATIONS [...]
--- OUTSIDE RECORDS SUMMARY | 2020-03-16 12:02 | XMS REPORT ---
Author Author Ingrid, Swathi Doctor Organization [facility] Address Unknown Phone Unavailable Care Team Providers Care Federal Law Clerk Name Role Phone Migration, Doctor Unavailable Unavailable PROBLEMS Type Condition ICD9-CM Code [id number] Code Onset Dates Condition S tatus SNOMED Code Problem Sensorineural hearing loss of right ear H90.41 Active 38046643 Problem Obstructive sleep apnea on CPAP G47.33 Active 60553921 Problem Periodic limb movement sleep disorder G47.61 Active 236792485 Problem Fatty liver K76.0 Active 15958376 7 Problem MACHUCA (nonalcoholic steatohepatitis) K75.81 Active 285641656 Problem Hyperlipidemia E78.5 Active 93930 004 Problem Essential hypertension I10 Active 44050670 Problem BMI 50.0-59.9, adult Z68.43 Active 508915816 Problem Type 2 diabetes mellitus with other specified complication E11.69 Active 491019288294 Problem Major depressive disorder, recurrent episode, moderate F33.1 Active 803408264 Problem Acquired hypothyroidism E03.9 Active 122231041 Problem Right upper quadrant pain R10.11 Acti ve 54490032 Problem Anxiety F41.9 Active 63016945 Problem Crohn's disease of both small and large intestin e with complication K50.819 Active 90030995 Problem Chronic tension-type headache, intractable G44.221 Active 120793238 Problem Hyperlipidemia, unspecified E78.5 Ac tive 32796523 Problem Frequent falls R29.6 Active 77925 2001 Problem Vitamin D deficiency E55.9 Active 10461229 Problem Mixed stress and urge urinary incontinence N39.46 Active 224744175 Problem Sinusitis chronic, frontal J32.1 Act katlyn 03829596 Problem Portal hypertension K76.6 Active 85708685 Problem Iron deficiency anemia due to chronic blood loss D 50.0 Active 19750915 Problem Other chronic pain G89.29 Active 8 5119074 Problem Vitamin B12 deficiency E53.8 Active 719085266 Problem Chronic diarrhea K52.9 Active 236 746347 Problem Seasonal allergies J30.2 Active 4 90796436 Problem History of hysterectomy for benign disease Z90.710 Active 261727270 Problem Morbid (severe) obesity due to excess calories E66 .01 Active 584052290 Problem Other cirrhosis of liver K74.69 Activ e 27263773 ALLERGIES No Information ENCOUNTERS Encounter Location Date Diagnosis [id number] [place] [address] Jan, [place] [address] [address] Jan, [place] [address] [place] [id number] [place] [address] Dec, Trigeminy R00.8 [place] [address] [address] Dec, Essential hypertension I10 ; Morbid obesity E66.01 ; Low back pain M54.5 ; Other chronic pain G89.29 and Pain in right knee M25.561 [place] [address] [place] [id number] [place] [address] 22 Nov, 2018 [place] [address] [address] Oct, Palpitations R00.2 [place] [address] [place] [id number] [place] [address] Oct, Encounter for Medicare annua l wellness [...] small and large intestine with complication K50.819 [place] [address] [place] [id number] [place] [address] Oct, [place] [address] [address] Oct, Crohn's disease of both smal l and large intestine with complication K50.819 [facility] [place] [address] [address] Jul, Sinusitis chronic, frontal J 32.1 ; Acute mucoid otitis media of both ears H65.113 ; Seasonal allergies J30.2 and BMI 50.0-59.9, adult Z68.43 [place] [address] [address] Jul, Essential hypertension I10 ; Type 2 diabetes mellitus with other specified complication E11.69 ; BMI 50.0-59.9, adult Z68.43 ; Mixed stress and urge urinary incontinence N39.46 and Mid back pain on right side M54.9 [place] [address] [address] Jun, Iron deficiency anemia due t o chronic blood loss D50.0 ; Hyperlipidemia E78.5 ; Type 2 diabetes mellitus with other specified complication E11.69 ; Vitamin B12 deficiency E53.8 and Vitamin D deficiency E55.9 [facility] [place] [address] [address] Jun, Cough R05 and BMI 50.0-59.9, adult Z68.43 [place] [address] [address] Jun, [address] [address] May, Iron deficiency anemia due t o chronic blood loss D50.0 ; Chronic diarrhea K52.9 ; Essential hypertension I10 ; Type 2 diabetes mellitus with other specified complication E11.69 ; Vitamin D deficiency E55.9 ; Colon stricture K56.699 ; Vitamin B12 deficiency E53.8 ; Hyperlipidemia E78.5 and BMI 50.0-59.9, adult Z68.43 [place] [address] [address] May, [facility] [address] [address] Apr, Nonhealing wound of heel S91 .309A and Body mass index (BMI) of 50- 59.9 in adult Z68.43 [place] [address] [address] Mar, [place] [address] [address] Mar, BMI 50.0-59.9, adult Z68.43 ; Flank pain R10.9 and Weight loss counseling, encounter for Z71.3 [place] [address] [address] February, [place] [address] [address] Jan, [place] [address] [address] Jan, [facility] [address] [address] Jan, Diarrhea due to staphylococc us A04.8 and Diarrhea, unspecified type R19.[address] [address] Jan, Acquired hypothyroidism E03. 9 ; Type 2 diabetes mellitus with other specified complication E11.69 ; Hyperlipidemia E78.5 ; Essential hypertension I10 ; Major depressive disorder, recurrent episode, moderate F33.1 and Vitamin D deficiency E55.[address] [address] Jan, Type 2 diabetes mellitus wit h other specified complication E11.69 ; Hyperlipidemia E78.5 ; Essential hypertension I10 ; Acquired hypothyroidism E03.9 ; Major depressive disorder, recurrent episode, moderate F33.1 ; Vitamin D deficiency E55.9 ; Sinus congestion R09.81 and BMI 50.0-59.9, adult Z68.43 [place] [address] [place] [id number] [place] [address] Dec, [place] [address] [address] Sep, Encounter for immunization Z 23 [place] [address] [address] Sep, [place] [address] [address] Sep, Vitamin B12 deficiency E53.8 [place] [address] [address] Aug, [place] [address] [address] Aug, BMI 60.0-69.9, adult Z68.44 and Acute non-recurrent maxillary sinusitis J01.00 [place] [address] [address] 14 Aug, 2017 [place] [address] [address] 02 Aug, 2017 Medicare annual wellness vis it, initial Z00.00 ; Screening for breast cancer Z12.31 ; BMI 40.0-44.9, adult Z68.41 and Acquired hypothyroidism E03.9 [place] [address] [place] [id number] [place] [address] Jul, Actinic keratosis L57.0 [place] [address] [place] [id number] [place] [address] Jul, Actinic keratosis L57.0 [place] [address] [place] [id number] [place] [address] Jul, Type 2 diabetes mellitus wit h other specified complication E11.69 ; Actinic keratosis L57.0 and Hypothyroidism, unspecified E03.9 [place] [address] [place] [address] [place] [address] Jul, [facility] [address] [place] [id number] [place] [address] Jul, [facility] [address] [place] [id number] [place] [address] Jul, Vitamin B12 deficiency E53.8 [place] [address] [address] Jun, Acquired hypothyroidism E03. 9 and Chronic tension-type headache, intractable G44.221 [place] [address] [address] Jun, Back muscle spasm M62.830 an d BMI 50.0-59.9, adult Z68.43 [place] [address] [address] Jun, Vitamin B12 deficiency E53.8 [place] [address] [address] Jun, Crohn's disease of both smal l and large intestine with complication K50.819 [place] [address] [address] Jun, Crohn's disease of both smal l and large intestine with complication K50.819 [place] [address] [address] May, Hyperlipidemia E78.5 ; Anxie ty F41.9 and Essential hypertension I10 [place] [address] [address] May, [place] [address] [address] May, Encounter for immunization Z 23 and Vitamin B12 deficiency E53.8 [place] [address] [address] May, [facility] [address] [id number] [address] [place] [address] Apr, [place] [address] [facility] [id number] [address] [place] [address] Apr, [facility] [address] [facility] [id number] [address] [place] [address] Apr, Crohn's disease of both smal l and large intestine with complication K50.819 [place] [address] [facility] [id number] [address] [place] [address] Apr, Vitamin B12 deficiency E53.8 [place] [address] [facility] [id number] [address] [place] [address] Apr, Crohn's disease of both smal l and large intestine with complication K50.819 and Acute pain of right shoulder M25.511 [place] [address] [place] [id number] [place] [address] Mar, Type 2 diabetes mellitus wit hout complication E11.9 ; Frequent falls R29.6 and Other chest pain R07.89 [place] [address] [facility] [id number] [address] [place] [address] Mar, [place] [address] [facility] [id number] [address] [place] [address] Mar, [place] [address] [facility] [id number] [address] [place] [address] Mar, Type 2 diabetes mellitus wit hout complication E11.9 and Blurry vision, bilateral H53.8 [place] [address] [facility] [id number] [address] [place] [address] Mar, Vitamin B12 deficiency E53.8 [place] [address] [facility] [id number] [address] [place] [address] Mar, Crohn's disease of both smal l and large intestine with complication K50.819 [place] [address] [facility] [id number] [address] [place] [address] February, Vitamin B12 deficiency E53.8 [facility] [address] [id number] [address] [place] [address] Jan, Crohn's disease of both smal l and large intestine with complication K50.819 [facility] [address] [facility] [id number] [address] [place] [address] Jan, Crohn's disease of both smal l and large intestine with complication K50.819 [facility] [address] [id number] [address] [place] [address] Jan, Dark brown-colored urine R82 .99 and Acute suppurative otitis media of right ear without spontaneous rupture of tympanic membrane, recurrence not specified H66.001 [facility] [address] [facility] [id number] [address] [place] [address] Jan, Encounter for immunization Z 23 [place] [address] [facility] [id number] [address] [place] [address] Dec, Crohn's disease of both smal l and large intestine with complication K50.819 and Eustachian tube dysfunction, right H69.81 [place] [address] [facility] [id number] [address] [place] [address] Dec, [facility] [address] [facility] [id number] [address] [place] [address] 16 Dec, 2016 Contusion of right knee, ini tial encounter S80.01XA [facility] [address] [id number] [address] [place] [address] Dec, [place] [address] [facility] [id number] [address] [place] [address] Dec, Acute pain of right knee M25 .561 [place] [address] [facility] [id number] [address] [place] [address] 09 Dec, 2016 Iron deficiency anemia due t o chronic blood loss D50.0 [place] [address] [place] [id number] [place] [address] 09 Dec, 2016 Hyperlipidemia E78.5 ; Type 2 diabetes mellitus without complication E11.9 ; Vitamin B12 deficiency E53.8 ; Essential hypertension I10 ; Obstructive sleep apnea on CPAP G47.33 and Periodic limb movement sleep disorder G47.61 [facility] [address] [facility] [id number] [address] [place] [address] 22 Nov, 2016 Type 2 diabetes mellitus wit hout complication E11.9 ; Vitamin B12 deficiency E53.8 ; Hyperlipidemia E78.5 ; Essential hypertension I10 ; Obstructive sleep apnea on CPAP G47.33 ; Periodic limb movement sleep disorder G47.61 ; Anxiety F41.9 ; Acquired hypothyroidism E03.9 and Chronic tension-type headache, intractable G44.221 [place] [address] [place] [id number] [place] [address] 10 Nov, 2016 Crohn's disease of both smal l and large intestine with complication K50.819 [place] [address] [place] [address] Nov, Vitamin B12 deficiency E53.8 [place] [address] [place] [address] Oct, [place] [address] [place] [address] Oct, Vitamin B12 deficiency E53.8 [place] [address] [place] [id number] [place] [address] Sep, [facility] [address] [place] [id number] [place] [address] Sep, Vitamin B12 deficiency E53.8 [facility] [address] [place] [id number] [place] [address] Aug, [place] [address] [place] [id number] [place] [address] 14 Aug, 2016 Vitamin B12 deficiency E53.8 [place] [address] [place] [id number] [place] [address] Aug, [facility] [address] [facility] [id number] [address] [place] [address] Jul, Elevated ALT measurement R74 .0 [facility] [address] [facility] [id number] [address] [place] [address] Jul, Hematuria R31.9 ; Acute righ t-sided thoracic back pain M54.6 ; Major depressive disorder, recurrent episode, moderate F33.1 and Elevated ALT measurement R74.0 [facility] [address] [id number] [address] [place] [address] Jul, [facility] [address] [facility] [id number] [address] [place] [address] Jul, Elevated ALT measurement R74 .0 [place] [address] [facility] [id number] [address] [place] [address] Jul, Iron deficiency anemia due t o chronic blood loss D50.0 [facility] [address] [facility] [id number] [address] [place] [address] 14 Jul, 2016 Type 2 diabetes mellitus wit hout complication E11.9 ; Acquired hypothyroidism E03.9 ; Iron deficiency anemia due to chronic blood loss D50.0 ; Hyperlipidemia E78.5 and Essential hypertension I10 [place] [facility] [id number] [address] [place] [address] 26 Jun, 2016 [place] [address] [facility] [id number] [address] [place] [address] 20 Jun, 2016 Vitamin B12 deficiency E53.8 [place] [address] [facility] [id number] [address] [place] [address] 16 Jun, 2016 Type 2 diabetes mellitus wit hout complication E11.9 ; Acquired hypothyroidism E03.9 ; Iron deficiency anemia due to chronic blood loss D50.0 ; Hyperlipidemia E78.5 ; Essential hypertension I10 ; Chronic tension-type headache, intractable G44.221 ; Pulsatile tinnitus, bilateral H93.13 ; Obstructive sleep apnea on CPAP G47.33 and Major depressive disorder, recurrent episode, moderate F33.1 [facility] [address] [id number] [address] [place] [address] 16 May, 2016 Vitamin B12 deficiency E53.8 [facility] [address] [id number] [address] [place] [address] 08 May, 2016 [facility] [address] [facility] [id number] [address] [place] [address] Apr, Vitamin B12 deficiency E53.8 [facility] [address] [id number] [address] [place] [address] 05 Apr, 2016 [facility] [address] [id number] [address] [place] [address] Mar, Chronic tension-type headach e, intractable G44.221 and Major depressive disorder, recurrent episode, moderate F33.1 [facility] [address] [id number] [address] [place] [address] 14 Mar, 2016 Vitamin B12 deficiency E53.8 [facility] [address] [id number] [address] [place] [address] February, [facility] [address] [facility] [id number] [address] [place] [address] February, Vitamin B12 deficiency E53.8 [facility] [address] [facility] [id number] [address] [place] [address] February, [facility] [address] [facility] [id number] [address] [place] [address] Jan, Dysuria R30.0 [facility] [address] [facility] [id number] [address] [place] [address] Jan, Type 2 diabetes mellitus wit hout complication E11.9 and Essential hypertension I10 [facility] [address] [facility] [id number] [address] [place] [address] 15 Jan, 2016 Chronic diarrhea K52.9 [facility] [address] [facility] [id number] [address] [place] [address] 13 Jan, 2016 [facility] [address] [facility] [id number] [address] [place] [address] Jan, Chronic diarrhea K52.9 [facility] [address] [facility] [id number] [address] [place] [address] Jan, [facility] [address] [facility] [id number] [address] [place] [address] Jan, Dysuria R30.0 [facility] [address] [facility] [id number] [address] [place] [address] Jan, Vitamin B12 deficiency E53.8 [facility] [address] [facility] [id number] [address] [place] [address] 07 Jan, 2016 Dysuria R30.0 and Iron defic iency anemia due to chronic blood loss D50.0 [facility] [address] [place] [id number] [place] [address] 05 Jan, 2016 Dysuria R30.0 [facility] [address] [place] [id number] [place] [address] Jan, [facility] [address] [place] [id number] [place] [address] 15 Dec, 2015 [facility] [address] [place] [id number] [place] [address] Dec, Iron deficiency anemia due t o chronic blood loss D50.0 [facility] [address] [place] [id number] [place] [address] 10 Dec, 2015 Dysuria R30.0 ; Fatigue R53. 83 ; Hyperlipidemia E78.5 and Diarrhea R19.7 [facility] [address] [facility] [id number] [address] [place] [address] 09 Dec, 2015 [facility] [address] [place] [id number] [place] [address] Dec, [facility] [address] [place] [address] 10 Nov, 2015 Vitamin B12 deficiency E53.8 [facility] [address] [facility] [id number] [address] [place] [address] Oct, Vitamin B12 deficiency E53.8 [facility] [address] [facility] [id number] [address] [place] [address] Oct, [facility] [address] [facility] [id number] [address] [place] [address] 09 Oct, 2015 Headache R51 [facility] [address] [facility] [id number] [address] [place] [address] 07 Oct, 2015 Essential hypertension I10 ; Type 2 diabetes mellitus without complication E11.9 ; Vitamin B12 deficiency E53.8 ; Acquired hypothyroidism E03.9 ; Iron deficiency anemia due to chronic blood loss D50.0 and Hyperlipidemia E78.5 [facility] [address] [facility] [id number] [address] [place] [address] 17 Sep, 2015 Essential hypertension I10 ; Vitamin B12 deficiency E53.8 ; Iron deficiency anemia due to chronic blood loss D50.0 ; Type 2 diabetes mellitus without complication E11.9 ; Hyperlipidemia E78.5 and Acquired hypothyroidism E03.9 [facility] [address] [place] [address] 08 Sep, 2015 [facility] [address] [facility] [id number] [address] [place] [address] Sep, [facility] [address] [place] [address] 05 Jul, 2015 [facility] [address] [facility] [id number] [address] [place] [address] 29 Jun, 2015 [facility] [address] [place] [address] 18 Jun, 2015 [facility] [address] [place] [id number] [place] [address] 15 Jun, 2015 Hyperlipidemia 272.4 ; Iron deficiency anemia 280.9 ; Hypothyroidism 244.9 ; Diabetes mellitus without mention of complication, type II or unspecified type, not stated as uncontrolled 250.00 and Hypertension 401.9 [facility] [address] [id number] [address] [place] [address] Jun, [facility] [address] [id number] [address] [place] [address] Jun, [facility] [address] [facility] [id number] [address] [place] [address] May, Hyperlipidemia 272.4 [facility] [address] [id number] [address] [place] [address] May, [facility] [address] [facility] [id number] [address] [place] [address] May, [facility] [address] [facility] [id number] [address] [place] [address] Apr, Diabetes mellitus without me ntion of complication, type II or unspecified type, not stated as uncontrolled 250.00 ; Hypothyroidism 244.9 ; Hyperlipidemia 272.4 ; Pain in joint, lower leg 719.46 and RUQ pain 789.01 [facility] [address] [facility] [id number] [address] [place] [address] Mar, Sinusitis 473.9 [facility] [address] [facility] [id number] [address] [place] [address] Mar, [facility] [address] [facility] [id number] [address] [place] [address] Mar, [facility] [address] [facility] [id number] [address] [place] [address] Mar, Hematochezia 578.1 [facility] [address] [facility] [id number] [address] [place] [phone] February, Sinusitis 473.9 [facility] [address] [facility] [id number] [address] [place] [id number] February, [facility] [address] [facility] [id number] [address] [place] [id number] Jan, [facility] [address] [id number] [place] [address], [place] [address] Jan, [facility] [address] [id number] [address] [place] [address], [place] [address] 24 Dec, 2014 [facility] [address] [id number] [address] [place] [address], [place] [address] Dec, [facility] [address] [id number] [address] [place] [address], [place] [address] Dec, [facility] [address] [id number] [address] [place] [address], [place] [address] Dec, [facility] [address] [id number] [address] [place] [address], [place] [address] Dec, [facility] [address] [id number] [address] [place] [address], [place] [address] Dec, [facility] [address] [id number] [address] [place] [address], [place] [address] Dec, [facility] [address] [id number] [address] [place] [address], [place] [address] Dec, [facility] [address] [id number] [address] [place] [address], [place] [address] Dec, [facility] [address] [id number] [address] [place] [address], [place] [address] Dec, [facility] [address] [id number] [address] [place] [address], [place] [address] Dec, [facility] [address] [id number] [address] [place] [address], [place] [address] Nov, [facility] [address] [id number] [address] [place] [address], [place] [address] Nov, [facility] [address] [id number] [address] [place] [address], [place] [address] 17 Nov, 2014 [facility] [address] [id number] [address] [place] [address], [place] [address] Nov, [facility] [address] [id number] [address] [place] [address], [place] [address] Oct, [facility] [address] [id number] [address] [place] [address], [place] [address] Oct, [facility] [address] [id number] [address] [place] [address], [place] [address] Oct, [facility] [address] [id number] [address] [place] [address], [place] [address] Oct, [facility] [address] [id number] [address] [place] [address], [place] [address] Oct, [facility] [address] [id number] [address] [place] [address], [place] [address] Oct, [facility] [address] [id number] [address] [place] [address], [place] [address] Sep, [facility] [address] [id number] [address] [place] [address], [place] [address] Sep, [facility] [address] [id number] [address] [place] [address], [place] [address] Sep, [facility] [address] [id number] [address] [place] [address], [place] [address] Sep, [facility] [address] [id number] [address] [place] [address], [place] [address] Sep, [facility] [address] [id number] [address] [place] [address], [place] [address] Sep, [facility] [address] [id number] [address] [place] [address], [place] [address] Sep, [facility] [address] [id number] [address] [place] [address], [place] [address] Aug, [facility] [address] [id number] [address] [place] [address], [place] [address] Aug, [facility] [address] [id number] [address] [place] [address], [place] [address] Aug, [facility] [address] [id number] [address] [place] [address], [place] [address] Aug, [facility] [address] [id number] [address] [place] [address], [place] [address] Aug, [facility] [address] [id number] [address] [place] [address], [place] [address] Aug, [facility] [address] [id number] [address] [place] [address], [place] [address] Aug, [facility] [address] [id number] [address] [place] [address], [place] [address] Aug, [facility] [address] [id number] [address] [place] [address], [place] [address] Aug, [facility] [address] [id number] [address] [place] [address], [place] [address] Aug, [facility] [address] [id number] [address] [place] [address], [place] [address] Aug, [facility] [address] [id number] [address] [place] [address], [place] [address] Aug, [facility] [address] [id number] [address] [place] [address], [place] [address] Aug, [facility] [address] [id number] [address] [place] [address], [place] [address] Aug, [facility] [address] [id number] [address] [place] [address], [place] [address] Jul, [facility] [address] [id number] [address] [place] [address], [place] [address] Jul, [facility] [address] [id number] [address] [place] [address], [place] [address] Jul, [facility] [address] [id number] [address] [place] [address], [place] [address] 06 Jul, 2014 [facility] [address] [id number] [facility] [address] 24 Jun, 2013 [facility] [address] [id number] [facility] [address] 24 Jun, 2013 [facility] [address] [id number] [address] [place] [address], [place] [address] 23 Jun, 2013 [facility] [address] [id number] [address] [place] [address], [place] [address] 23 Jun, 2013 [facility] [address] [id number] [address] [place] [address], [place] [address] 19 Jun, 2013 [facility] [address] [id number] [address] [place] [address], [place] [address] 19 Jun, 2013 [facility] [address] [id number] [address] [place] [address], [place] [address] 11 Jun, 2013 [facility] [address] [id number] [address] [place] [address], [place] [address] 11 Jun, 2013 [facility] [address] [id number] [address] [place] [address], [place] [address] 11 Jun, 2013 [facility] [address] [id number] [address] [place] [address], [place] [address] 11 Jun, 2013 [facility] [address] [id number] [address] [place] [address], [place] [address] 10 Jun, 2013 [facility] [address] [id number] [address] [place] [address], [place] [address] 10 Jun, 2013 [facility] [address] [id number] [address] [place] [address], [place] [address] 09 Jun, 2013 [facility] [address] [id number] [address] [place] [address], [place] [address] 09 Jun, 2013 [facility] [address] [id number] [address] [place] [address], [place] [address] 14 May, 2014 [facility] [address] [id number] [facility] [address] May, [facility] [address] [id number] [facility] [address] May, [facility] [address] [id number] [facility] [address] May, [facility] [address] [id number] [address] [place] [address], [place] [address] May, [facility] [address] [id number] [address] [place] [address], [place] [address] May, [facility] [address] [id number] [address] [place] [address], [place] [address] Apr, [facility] [address] [id number] [address] [place] [address], [place] [address] Apr, [facility] [address] [id number] [address] [place] [address], [place] [address] Apr, [facility] [address] [id number] [address] [place] [address], [place] [address] Apr, [facility] [address] [id number] [address] [place] [address], [place] [address] Apr, [facility] [address] [id number] [address] [place] [address], [place] [address] Apr, [facility] [address] [id number] [address] [place] [address], [place] [address] Apr, [facility] [address] [id number] [address] [place] [address], [place] [address] Apr, [facility] [address] [id number] [address] [place] [address], [place] [address] Apr, [facility] [address] [id number] [address] [place] [address], [place] [address] Apr, [facility] [address] [id number] [address] [place] [address], [place] [address] Apr, [facility] [address] [id number] [address] [place] [address], [place] [address] Mar, [facility] [address] [id number] [address] [place] [address], [place] [address] Mar, [facility] [address] [id number] [address] [place] [address], [place] [address] Mar, [facility] [address] [id number] [address] [place] [address], [place] [address] Mar, [facility] [address] [id number] [address] [place] [address], [place] [address] February, [facility] [address] [id number] [address] [place] [address], [place] [address] February, [facility] [address] [id number] [address] [place] [address], [place] [address] Jan, [facility] [address] [id number] [address] [place] [address], [place] [address] Jan, [facility] [address] [place], [place] [id number] Jan, [facility] [address] [id number] [address] [place] [address], [place] [address] Jan, [facility] [address] [id number] [address] [place] [address], [place] [address] Jan, [facility] [address] [id number] [address] [place] [address], [place] [address] Jan, [facility] [address] [id number] [address] [place] [address], [place] [address] Jan, [facility] [address] [id number] [address] [place] [address], [place] [address] Jan, [facility] [address] [id number] [address] [place] [address], [place] [address] Jan, [facility] [address] [id number] [address] [place] [address], [place] [address] Jan, [facility] [address] [id number] [address] [place] [address], [place] [address] Jan, [facility] [address] [id number] [address] [place] [address], [place] [address] Jan, [facility] [address] [id number] [address] [place] [address], [place] [address] Jan, [facility] [address] [id number] [address] [place] [address], [place] [address] Jan, [facility] [address] [id number] [address] [place] [address], [place] [address] Jan, [facility] [address] [id number] [address] [place] [address], [place] [address] Jan, [facility] [address] [id number] [address] [place] [address], [place] [address] Jan, [facility] [address] [id number] [address] [place] [address], [place] [address] Dec, [facility] [address] [id number] [address] [place] [address], [place] [address] Dec, [facility] [address] [id number] [address] [place] [address], [place] [address] Dec, [facility] [address] [id number] [address] [place] [address], [place] [address] Dec, [facility] [address] [id number] [address] [place] [address], [place] [address] Dec, [facility] [address] [id number] [address] [place] [address], [place] [address] Dec, [facility] [address] [id number] [address] [place] [address], [place] [address] Dec, [facility] [address] [id number] [address] [place] [address], [place] [address] Nov, [facility] [address] [id number] [address] [place] [address] Nov, [facility] [address] [id number] [address] [place] [address], [place] [address] Nov, [facility] [address] [id number] [address] [place] [address], [place] [address] Nov, [facility] [address] [id number] [address] [place] [address], [place] [address] Nov, [facility] [address] [id number] [address] [place] [address], [place] [address] Nov, [facility] [address] [id number] [address] [place] [address], [place] [address] Nov, [facility] [address] [id number] [address] [place] [address], [place] [address] Oct, [facility] [address] [id number] [address] [place] [address], [place] [address] Oct, [facility] [address] [id number] [address] [place] [address], [place] [address] Sep, [facility] [address] [id number] [address] [place] [address], [place] [address] Sep, [facility] [address] [id number] [address] [place] [address], [place] [address] Sep, [facility] [address] [id number] [address] [place] [address], [place] [address] Sep, [facility] [address] [id number] [address] [place] [address], [place] [address] Sep, [facility] [address] [id number] [address] [place] [address], [place] [address] Sep, [facility] [address] [id number] [address] [place] [address], [place] [address] Sep, [facility] [address] [id number] [address] [place] [address], [place] [address] Sep, [facility] [address] [id number] [address] [place] [address] Sep, [facility] [address] [id number] [address] [place] [address] Sep, [facility] [address] [id number] [address] [place] [address] Aug, [facility] [address] [id number] [address] [place] [address] Aug, [facility] [address] [id number] [address] [place] [address] Aug, [facility] [address] [id number] [address] [place] [address] Aug, [facility] [address] [id number] [address] [place] [address] Aug, [facility] [address] [id number] [address] [place] [address] Jul, [facility] [address] [id number] [address] [place] [address] Jul, [facility] [address] [id number] [address] [place] [address] Jul, [facility] [address] [id number] [address] [place] [address] Jul, IMMUNIZATIONS No Known Immunizations SOCIAL HISTORY Never Assessed REASON FOR VISIT [facility] PLAN OF CARE VITAL SIGNS MEDICATIONS [...]
--- OUTSIDE RECORDS SUMMARY | 2020-03-16 12:03 | XMS REPORT ---
Author Author Swathi RUGGIERO Organization [facility] Address [address] [place] [address] Care Team Providers [place] Stocker Name Role Phone TI RUGGIERO Unavailable PROBLEMS Type Condition ICD9-CM Code [id number] Code Onset Dates Condition S tatus SNOMED Code Problem Right upper quadrant pain R10.11 Acti ve 93628738 Problem Crohn's disease of both small and large intestin e with complication K50.819 Active 57832323 Problem Chronic tension-type headache, intractable G44.221 Active 914657306 Problem Mixed stress and urge urinary incontinence N39.46 Active 945992852 Problem Periodic limb movement sleep disorder G47.61 Active 410095418 Problem Vitamin D deficiency E55.9 Active 97123497 Problem Sensorineural hearing loss of right ear H90.41 Active 94412730 Problem Fatty liver K76.0 Active 47888767 7 Problem Hyperlipidemia, unspecified E78.5 Ac tive 49249751 Problem Frequent falls R29.6 Active 27764 2002 Problem BMI 50.0-59.9, adult Z68.43 Active 482428738 Problem Type 2 diabetes mellitus with other specified complication E11.69 Active 883860969033 Problem Iron deficiency anemia due to chronic blood loss D 50.0 Active 96785239 Problem Chronic diarrhea K52.9 Active 236 165578 Problem Obstructive sleep apnea on CPAP G47.33 Active 64040211 Problem MACHUCA (nonalcoholic steatohepatitis) K75.81 Active 059150386 Problem Hyperlipidemia E78.5 Active 04090 004 Problem Acquired hypothyroidism E03.9 Active 117268956 Problem Vitamin B12 deficiency E53.8 Active 002211253 Problem Major depressive disorder, recurrent episode, moderate F33.1 Active 558516199 Problem Essential hypertension I10 Active 78994222 Problem Anxiety F41.9 Active 50463515 ALLERGIES Substance Reaction Event Type Date Status Penicillin V Potassium Unknown Drug Allergy Jun, Activ e Niacin Unknown Drug Allergy Jun, Active Morphine Sulfate Unknown Drug Allergy Jun, Active Lipitor abdominal pain Drug Allergy Jun, Active Dilaudid Unknown Drug Allergy Jun, Active Bactrim Unknown Drug Allergy Jun, Active Amoxicillin Unknown Drug Allergy Jun, Active Adhesive Unknown Non Drug Allergy Jun, Active Sulfamethoxazole-Trimethoprim Unknown Drug Allergy Jun, 8 Active Tetanus&diphtheria Toxoid Unknown Non Drug Allergy Jun, 8 Active Influenza Virus Vacc,specific Got flu and was told to never get the vaccine again Non Drug Allergy Jun, Active ENCOUNTERS Encounter Location Date Diagnosis [facility] [address] [address] 02 Jul, 2018 Essential hypertension I10 ; Type 2 diabetes mellitus with other specified complication E11.69 ; BMI 50.0-59.9, adult Z68.43 ; Mixed stress and urge urinary incontinence N39.46 and Mid back pain on right side M54.9 [facility] [address] [place] [id number] [place] [address] Jun, Iron deficiency anemia due t o chronic blood loss D50.0 ; Hyperlipidemia E78.5 ; Type 2 diabetes mellitus with other specified complication E11.69 ; Vitamin B12 deficiency E53.8 and Vitamin D deficiency E55.9 [facility] [address] [place] [id number] [place] [address] Jun, Cough R05 and BMI 50.0-59.9, adult Z68.43 [facility] [address] [address] [id number] [place] [address] Jun, [facility] [address] [id number] [place] [address] May, Iron deficiency anemia due t o chronic blood loss D50.0 ; Chronic diarrhea K52.9 ; Essential hypertension I10 ; Type 2 diabetes mellitus with other specified complication E11.69 ; Vitamin D deficiency E55.9 ; Colon stricture K56.699 ; Vitamin B12 deficiency E53.8 ; Hyperlipidemia E78.5 and BMI 50.0-59.9, adult Z68.43 [facility] [address] [place] [id number] [place] [address] May, [place] [address] [address] Apr, Nonhealing wound of heel S91 .309A and Body mass index (BMI) of 50- 59.9 in adult Z68.43 [place] [id number] [place] [address] Mar, [place] [address] [address] Mar, BMI 50.0-59.9, adult Z68.43 ; Flank pain R10.9 and Weight loss counseling, encounter for Z71.[address] [address] February, [address] [address] Jan, [place] [address] [place] [id number] [place] [address] Jan, [facility] [address] [place] [address] Jan, Diarrhea due to staphylococc us A04.8 and Diarrhea, unspecified type R19.[address] [address] Jan, Acquired hypothyroidism E03. 9 ; Type 2 diabetes mellitus with other specified complication E11.69 ; Hyperlipidemia E78.5 ; Essential hypertension I10 ; Major depressive disorder, recurrent episode, moderate F33.1 and Vitamin D deficiency E55.[address] [address] Jan, Type 2 diabetes mellitus wit h other specified complication E11.69 ; Hyperlipidemia E78.5 ; Essential hypertension I10 ; Acquired hypothyroidism E03.9 ; Major depressive disorder, recurrent episode, moderate F33.1 ; Vitamin D deficiency E55.9 ; Sinus congestion R09.81 and BMI 50.0-59.9, adult Z68.43 [place] [address] [address] Dec, [place] [address] [address] Sep, Encounter for immunization Z 23 [place] [address] [address] Sep, [place] [address] [address] Sep, Vitamin B12 deficiency E53.8 [place] [address] [address] Aug, [place] [address] [address] Aug, BMI 60.0-69.9, adult Z68.44 and Acute non-recurrent maxillary sinusitis J01.00 [place] [address] [address] 14 Aug, 2017 [place] [address] [address] 02 Aug, 2017 Medicare annual wellness vis it, initial Z00.00 ; Screening for breast cancer Z12.31 ; BMI 40.0-44.9, adult Z68.41 and Acquired hypothyroidism E03.9 [place] [address] [place] [id number] [place] [address] Jul, Actinic keratosis L57.0 [place] [address] [place] [id number] [place] [address] Jul, Actinic keratosis L57.0 [place] [address] [place] [id number] [place] [address] Jul, Type 2 diabetes mellitus wit h other specified complication E11.69 ; Actinic keratosis L57.0 and Hypothyroidism, unspecified E03.9 [place] [address] [address] Jul, [place] [address] [address] Jul, [place] [address] [address] Jul, Vitamin B12 deficiency E53.8 [place] [address] [address] Jun, Acquired hypothyroidism E03. 9 and Chronic tension-type headache, intractable G44.221 [place] [address] [address] Jun, Back muscle spasm M62.830 an d BMI 50.0-59.9, adult Z68.43 [place] [address] [address] Jun, Vitamin B12 deficiency E53.8 [place] [address] [address] Jun, Crohn's disease of both smal l and large intestine with complication K50.819 [place] [address] [address] Jun, Crohn's disease of both smal l and large intestine with complication K50.819 [place] [address] [address] May, Hyperlipidemia E78.5 ; Anxie ty F41.9 and Essential hypertension I10 [place] [address] [address] May, [place] [address] [address] May, Encounter for immunization Z 23 and Vitamin B12 deficiency E53.8 [place] [address] [address] May, [facility] [address] [id number] [address] [place] [address] Apr, [facility] [address] [id number] [address] [place] [address] Apr, [facility] [address] [facility] [id number] [address] [place] [address] Apr, Crohn's disease of both smal l and large intestine with complication K50.819 [place] [address] [id number] [address] [place] [address] Apr, Vitamin B12 deficiency E53.8 [place] [address] [facility] [id number] [address] [place] [address] Apr, Crohn's disease of both smal l and large intestine with complication K50.819 and Acute pain of right shoulder M25.511 [place] [address] [facility] [id number] [address] [place] [address] Mar, Type 2 diabetes mellitus wit hout complication E11.9 ; Frequent falls R29.6 and Other chest pain R07.89 [place] [address] [facility] [id number] [address] [place] [address] Mar, [place] [address] [facility] [id number] [address] [place] [address] Mar, [place] [address] [facility] [id number] [address] [place] [address] Mar, Type 2 diabetes mellitus wit hout complication E11.9 and Blurry vision, bilateral H53.8 [place] [address] [id number] [address] [place] [address] Mar, Vitamin B12 deficiency E53.8 [place] [address] [facility] [id number] [address] [place] [address] Mar, Crohn's disease of both smal l and large intestine with complication K50.819 [place] [address] [id number] [address] [place] [address] February, Vitamin B12 deficiency E53.8 [facility] [address] [facility] [id number] [address] [place] [address] Jan, Crohn's disease of both smal l and large intestine with complication K50.819 [facility] [address] [facility] [id number] [address] [place] [address] Jan, Crohn's disease of both smal l and large intestine with complication K50.819 [facility] [address] [facility] [id number] [address] [place] [address] Jan, Dark brown-colored urine R82 .99 and Acute suppurative otitis media of right ear without spontaneous rupture of tympanic membrane, recurrence not specified H66.001 [facility] [address] [facility] [id number] [address] [place] [address] Jan, Encounter for immunization Z 23 [place] [address] [facility] [id number] [address] [place] [address] Dec, Crohn's disease of both smal l and large intestine with complication K50.819 and Eustachian tube dysfunction, right H69.81 [place] [address] [facility] [id number] [address] [place] [address] Dec, [facility] [address] [facility] [id number] [address] [place] [address] Dec, Contusion of right knee, ini tial encounter S80.01XA [facility] [address] [facility] [id number] [address] [place] [address] Dec, [place] [address] [facility] [id number] [address] [place] [address] Dec, Acute pain of right knee M25 .561 [place] [address] [facility] [id number] [address] [place] [address] 09 Dec, 2016 Iron deficiency anemia due t o chronic blood loss D50.0 [place] [address] [facility] [id number] [address] [place] [address] Dec, Hyperlipidemia E78.5 ; Type 2 diabetes mellitus without complication E11.9 ; Vitamin B12 deficiency E53.8 ; Essential hypertension I10 ; Obstructive sleep apnea on CPAP G47.33 and Periodic limb movement sleep disorder G47.61 [place] [address] [facility] [id number] [address] [place] [id number] 22 Nov, 2016 Type 2 diabetes mellitus wit hout complication E11.9 ; Vitamin B12 deficiency E53.8 ; Hyperlipidemia E78.5 ; Essential hypertension I10 ; Obstructive sleep apnea on CPAP G47.33 ; Periodic limb movement sleep disorder G47.61 ; Anxiety F41.9 ; Acquired hypothyroidism E03.9 and Chronic tension-type headache, intractable G44.221 [place] [address] [facility] [id number] [address] [place] [address] 10 Nov, 2016 Crohn's disease of both smal l and large intestine with complication K50.819 [place] [id number] [place] [address] Nov, Vitamin B12 deficiency E53.8 [place] [address] [facility] [id number] [address] [place] [address] Oct, [place] [address] [place] [id number] [address] [place] [address] Oct, Vitamin B12 deficiency E53.8 [place] [address] [facility] [id number] [address] [place] [phone] Sep, [place] [address] [facility] [id number] [address] [place] [address] Sep, Vitamin B12 deficiency E53.8 [place] [address] [facility] [id number] [address] [place] [address] Aug, [place] [address] [facility] [id number] [address] [place] [id number] 14 Aug, 2016 Vitamin B12 deficiency E53.8 [place] [address] [facility] [id number] [address] [place] [phone] Aug, [facility] [address] [id number] [address] [place] [address] Jul, Elevated ALT measurement R74 .0 [facility] [address] [facility] [id number] [address] [place] [address] Jul, Hematuria R31.9 ; Acute righ t-sided thoracic back pain M54.6 ; Major depressive disorder, recurrent episode, moderate F33.1 and Elevated ALT measurement R74.0 [place] [address] [id number] [address] [place] [address] Jul, [place] [address] [facility] [id number] [address] [place] [id number] Jul, Elevated ALT measurement R74 .0 [place] [address] [facility] [id number] [address] [place] [address] Jul, Iron deficiency anemia due t o chronic blood loss D50.0 [facility] [address] [facility] [id number] [address] [place] [id number] 14 Jul, 2016 Type 2 diabetes mellitus wit hout complication E11.9 ; Acquired hypothyroidism E03.9 ; Iron deficiency anemia due to chronic blood loss D50.0 ; Hyperlipidemia E78.5 and Essential hypertension I10 [place] [address] [facility] [id number] [address] [place] [id number] 26 Jun, 2016 [place] [address] [facility] [id number] [address] [place] [id number] 20 Jun, 2016 Vitamin B12 deficiency E53.8 [place] [address] [facility] [id number] [address] [place] [id number] 16 Jun, 2016 Type 2 diabetes mellitus wit hout complication E11.9 ; Acquired hypothyroidism E03.9 ; Iron deficiency anemia due to chronic blood loss D50.0 ; Hyperlipidemia E78.5 ; Essential hypertension I10 ; Chronic tension-type headache, intractable G44.221 ; Pulsatile tinnitus, bilateral H93.13 ; Obstructive sleep apnea on CPAP G47.33 and Major depressive disorder, recurrent episode, moderate F33.1 [facility] [address] [id number] [address] [place] [id number] 16 May, 2016 Vitamin B12 deficiency E53.8 [facility] [address] [id number] [address] [place] [id number] 08 May, 2016 [facility] [address] [facility] [id number] [address] [place] [id number] Apr, Vitamin B12 deficiency E53.8 [facility] [address] [facility] [id number] [address] [place] [id number] Apr, [facility] [address] [facility] [id number] [address] [place] [address] Mar, Chronic tension-type headach e, intractable G44.221 and Major depressive disorder, recurrent episode, moderate F33.1 [facility] [address] [facility] [id number] [address] [place] [address] Mar, Vitamin B12 deficiency E53.8 [facility] [address] [facility] [id number] [address] [place] [address] February, [facility] [address] [facility] [id number] [address] [place] [address] February, Vitamin B12 deficiency E53.8 [facility] [address] [facility] [id number] [address] [place] [id number] February, [facility] [address] [facility] [id number] [address] [place] [phone] Jan, Dysuria R30.0 [facility] [address] [facility] [id number] [address] [place] [id number] Jan, Type 2 diabetes mellitus wit hout complication E11.9 and Essential hypertension I10 [facility] [address] [facility] [id number] [address] [place] [id number] 15 Jan, 2016 Chronic diarrhea K52.9 [facility] [address] [facility] [id number] [address] [place] [address] 13 Jan, 2016 [facility] [address] [facility] [id number] [address] [place] [address] Jan, Chronic diarrhea K52.9 [facility] [address] [facility] [id number] [address] [place] [phone] Jan, [facility] [address] [place] [id number] [address] [place] [address] Jan, Dysuria R30.0 [facility] [address] [place] [id number] [place] [id number] 07 Jan, 2016 Vitamin B12 deficiency E53.8 [facility] [address] [place] [id number] [place] [address] 07 Jan, 2016 Dysuria R30.0 and Iron defic iency anemia due to chronic blood loss D50.0 [facility] [address] [place] [id number] [address] [place] [id number] 05 Jan, 2016 Dysuria R30.0 [facility] [address] [facility] [id number] [address] [place] [address] Jan, [facility] [address] [place] [id number] [place] [id number] 15 Dec, 2015 [facility] [address] [place] [id number] [place] [phone] Dec, Iron deficiency anemia due t o chronic blood loss D50.0 [facility] [id number] [place] [address] 10 Dec, 2015 Dysuria R30.0 ; Fatigue R53. 83 ; Hyperlipidemia E78.5 and Diarrhea R19.7 [facility] [address] [place] [id number] [address] [place] [id number] 09 Dec, 2015 [facility] [address] [place] [id number] [address] [place] [id number] 02 Dec, 2015 [facility] [address] [address] 10 Nov, 2015 Vitamin B12 deficiency E53.8 [facility] [address] [facility] [id number] [address] [place] [id number] 13 Oct, 2015 Vitamin B12 deficiency E53.8 [facility] [address] [facility] [id number] [address] [place] [id number] 12 Oct, 2015 [facility] [address] [facility] [id number] [address] [place] [id number] 09 Oct, 2015 Headache R51 [facility] [address] [facility] [id number] [address] [place] [id number] 07 Oct, 2015 Essential hypertension I10 ; Type 2 diabetes mellitus without complication E11.9 ; Vitamin B12 deficiency E53.8 ; Acquired hypothyroidism E03.9 ; Iron deficiency anemia due to chronic blood loss D50.0 and Hyperlipidemia E78.5 [facility] [address] [facility] [id number] [address] [place] [id number] 17 Sep, 2015 Essential hypertension I10 ; Vitamin B12 deficiency E53.8 ; Iron deficiency anemia due to chronic blood loss D50.0 ; Type 2 diabetes mellitus without complication E11.9 ; Hyperlipidemia E78.5 and Acquired hypothyroidism E03.9 [facility] [address] [facility] [id number] [address] [place] [phone] Sep, [facility] [address] [facility] [id number] [address] [place] [id number] Sep, [facility] [id number] [place] [phone] Jul, [facility] [address] [facility] [id number] [address] [place] [id number] Jun, [facility] [address] [address] 18 Jun, 2015 [facility] [address] [facility] [id number] [address] [place] [id number] 15 Jun, 2015 Hyperlipidemia 272.4 ; Iron deficiency anemia 280.9 ; Hypothyroidism 244.9 ; Diabetes mellitus without mention of complication, type II or unspecified type, not stated as uncontrolled 250.00 and Hypertension 401.9 [facility] [address] [id number] [address] [place] [phone] Jun, [facility] [address] [id number] [address] [place] [phone] Jun, [facility] [address] [facility] [id number] [address] [place] [phone] May, Hyperlipidemia 272.4 [facility] [address] [id number] [address] [place] [id number] May, [facility] [address] [facility] [id number] [address] [place] [phone] May, [facility] [address] [facility] [id number] [address] [place] [id number] Apr, Diabetes mellitus without me ntion of complication, type II or unspecified type, not stated as uncontrolled 250.00 ; Hypothyroidism 244.9 ; Hyperlipidemia 272.4 ; Pain in joint, lower leg 719.46 and RUQ pain 789.01 [facility] [address] [facility] [id number] [address] [place] [id number] Mar, Sinusitis 473.9 [facility] [address] [place] [id number] [address] [place] [phone] Mar, [facility] [address] [facility] [id number] [address] [place] [phone] Mar, [facility] [address] [place] [id number] [address] [place] [phone] Mar, Hematochezia 578.1 [facility] [address] [facility] [id number] [address] [place] [phone] February, Sinusitis 473.9 [facility] [address] [facility] [id number] [address] [place] [id number] February, [facility] [address] [place] [id number] [address] [place] [phone] Jan, [facility] [address] [id number] [address] [place] [address], [place] [address] Jan, [facility] [address] [id number] [address] [place] [address], [place] [phone] 24 Dec, 2014 [facility] [address] [id number] [address] [place] [address], [place] [address] 24 Dec, 2014 [facility] [address] [id number] [address] [place] [address], [place] [address] 24 Dec, 2014 [facility] [address] [id number] [address] [place] [address], [place] [id number] 24 Dec, 2014 [facility] [address] [id number] [address] [place] [address], [place] [id number] Dec, [facility] [address] [id number] [address] [place] [address], [place] [id number] Dec, [facility] [address] [id number] [address] [place] [address], [place] [id number] Dec, [facility] [address] [id number] [address] [place] [address], [place] [id number] Dec, [facility] [address] [id number] [address] [place] [address], [place] [id number] Dec, [facility] [address] [id number] [address] [place] [address], [place] [id number] Dec, [facility] [address] [id number] [address] [place] [address], [place] [address] Dec, [facility] [address] [id number] [address] [place] [address], [place] [id number] Nov, [facility] [address] [address] [id number] [address] [place] [address], [place] [address] Nov, [facility] [address] [id number] [address] [place] [address], [place] [address] 17 Nov, 2014 [facility] [address] [id number] [address] [place] [address], [place] [address] Nov, [facility] [address] [id number] [address] [place] [address], [place] [address] Oct, [facility] [address] [id number] [address] [place] [address], [place] [address] Oct, [facility] [address] [id number] [address] [place] [address], [place] [address] Oct, [facility] [address] [id number] [address] [place] [address], [place] [address] Oct, [facility] [address] [id number] [address] [place] [address], [place] [address] Oct, [facility] [address] [id number] [address] [place] [address], [place] [address] Oct, [facility] [address] [id number] [address] [place] [address], [place] [address] Sep, [facility] [address] [id number] [address] [place] [address], [place] [address] Sep, [facility] [address] [id number] [address] [place] [address], [place] [address] Sep, [facility] [address] [id number] [address] [place] [address], [place] [address] Sep, [facility] [address] [id number] [address] [place] [address], [place] [address] Sep, [facility] [address] [id number] [address] [place] [address], [place] [address] Sep, [facility] [address] [id number] [address] [place] [address], [place] [address] Sep, [facility] [address] [id number] [address] [place] [address], [place] [address] Aug, [facility] [address] [id number] [address] [place] [address], [place] [address] Aug, [facility] [address] [id number] [address] [place] [address], [place] [address] Aug, [facility] [address] [id number] [address] [place] [address], [place] [address] Aug, [facility] [address] [id number] [address] [place] [address], [place] [address] Aug, [facility] [address] [id number] [address] [place] [address], [place] [address] Aug, [facility] [address] [id number] [address] [place] [address], [place] [address] Aug, [facility] [address] [id number] [address] [place] [address], [place] [address] Aug, [facility] [address] [id number] [address] [place] [address], [place] [address] Aug, [facility] [address] [id number] [address] [place] [address], [place] [address] Aug, [facility] [address] [id number] [address] [place] [address], [place] [address] Aug, [facility] [address] [id number] [address] [place] [address], [place] [address] Aug, [facility] [address] [id number] [address] [place] [address], [place] [address] Aug, [facility] [address] [id number] [address] [place] [address], [place] [address] Aug, [facility] [address] [id number] [address] [place] [address], [place] [address] Jul, [facility] [address] [id number] [address] [place] [address], [place] [address] Jul, [facility] [address] [id number] [address] [place] [address], [place] [address] Jul, [facility] [address] [id number] [address] [place] [address], [place] [address] 06 Jul, 2014 [facility] [address] [id number] [address] [place] [address], [place] [address] 24 Jun, 2013 [facility] [address] [id number] [address] [place] [address], [place] [address] 24 Jun, 2013 [facility] [address] [id number] [address] [place] [address], [place] [address] 23 Jun, 2013 [facility] [address] [id number] [address] [place] [address], [place] [address] 23 Jun, 2013 [facility] [address] [id number] [address] [place] [address], [place] [address] 19 Jun, 2013 [facility] [address] [id number] [address] [place] [address], [place] [address] 19 Jun, 2013 [facility] [address] [id number] [address] [place] [address], [place] [address] 11 Jun, 2013 [facility] [address] [id number] [address] [place] [address], [place] [address] 11 Jun, 2013 [facility] [address] [id number] [address] [place] [address], [place] [address] 11 Jun, 2013 [facility] [address] [id number] [address] [place] [address], [place] [address] 11 Jun, 2013 [facility] [address] [id number] [address] [place] [address], [place] [address] 10 Jun, 2013 [facility] [address] [id number] [address] [place] [address], [place] [address] 10 Jun, 2013 [facility] [address] [id number] [address] [place] [address], [place] [address] 09 Jun, 2013 [facility] [address] [id number] [address] [place] [address], [place] [address] 09 Jun, 2013 [facility] [address] [id number] [address] [place] [address], [place] [address] 14 May, 2014 [facility] [address] [id number] [facility] [place] [address] May, [facility] [address] [id number] [facility] [place] [address] May, [facility] [address] [id number] [facility] [place] [address] May, [facility] [address] [id number] [address] [place] [address], [place] [address] May, [facility] [address] [id number] [address] [place] [address], [place] [address] May, [facility] [address] [id number] [address] [place] [address], [place] [address] Apr, [facility] [address] [id number] [address] [place] [address], [place] [address] Apr, [facility] [address] [id number] [address] [place] [address], [place] [address] Apr, [facility] [address] [id number] [address] [place] [address], [place] [address] Apr, [facility] [address] [id number] [address] [place] [address], [place] [address] Apr, [facility] [address] [id number] [address] [place] [address], [place] [address] Apr, [facility] [address] [id number] [address] [place] [address], [place] [address] Apr, [facility] [address] [id number] [address] [place] [address], [place] [address] Apr, [facility] [address] [id number] [address] [place] [address], [place] [address] Apr, [facility] [address] [id number] [address] [place] [address], [place] [address] Apr, [facility] [address] [id number] [address] [place] [address], [place] [address] Apr, [facility] [address] [id number] [address] [place] [address], [place] [address] Mar, [facility] [address] [id number] [address] [place] [address], [place] [address] Mar, [facility] [address] [id number] [address] [place] [address], [place] [address] Mar, [facility] [address] [id number] [address] [place] [address], [place] [address] Mar, [facility] [address] [id number] [address] [place] [address], [place] [address] February, [facility] [address] [id number] [address] [place] [address], [place] [address] February, [facility] [address] [id number] [address] [place] [address], [place] [address] Jan, [facility] [address] [id number] [address] [place] [address], [place] [address] Jan, [facility] [address] [place] [id number] Jan, [facility] [address] [id number] [address] [place] [address], [place] [address] Jan, [facility] [address] [id number] [address] [place] [address], [place] [address] Jan, [facility] [address] [id number] [address] [place] [address], [place] [address] Jan, [facility] [address] [id number] [address] [place] [address], [place] [address] Jan, [facility] [address] [id number] [address] [place] [address], [place] [address] Jan, [facility] [address] [id number] [address] [place] [address], [place] [address] Jan, [facility] [address] [id number] [address] [place] [address], [place] [address] Jan, [facility] [address] [id number] [facility] [place] [address] Jan, [facility] [address] [id number] [address] [place] [address], [place] [address] Jan, [facility] [address] [id number] [address] [place] [address], [place] [address] Jan, [facility] [address] [id number] [address] [place] [address], [place] [address] Jan, [facility] [address] [id number] [address] [place] [address], [place] [address] Jan, [facility] [address] [id number] [address] [place] [address], [place] [address] Jan, [facility] [address] [id number] [address] [place] [address], [place] [address] Jan, [facility] [address] [id number] [address] [place] [address], [place] [address] Dec, [facility] [address] [id number] [address] [place] [address], [place] [address] Dec, [facility] [address] [id number] [address] [place] [address], [place] [address] Dec, [facility] [address] [id number] [address] [place] [address], [place] [address] Dec, [facility] [address] [id number] [address] [place] [address], [place] [address] Dec, [facility] [address] [id number] [address] [place] [address], [place] [address] Dec, [facility] [address] [id number] [address] [place] [address], [place] [address] Dec, [facility] [address] [id number] [address] [place] [address], [place] [address] Nov, [facility] [address] [id number] [address] [place] [address], [place] [address] Nov, [facility] [address] [id number] [address] [place] [address], [place] [address] Nov, [facility] [address] [id number] [address] [place] [address], [place] [address] Nov, [facility] [address] [id number] [address] [place] [address], [place] [address] Nov, [facility] [address] [id number] [address] [place] [address], [place] [address] Nov, [facility] [address] [id number] [address] [place] [address], [place] [address] Nov, [facility] [address] [id number] [address] [place] [address], [place] [address] Oct, [facility] [address] [id number] [address] [place] [address], [place] [address] Oct, [facility] [address] [id number] [address] [place] [address], [place] [address] Sep, [facility] [address] [id number] [address] [place] [address], [place] [address] Sep, [facility] [address] [id number] [address] [place] [address], [place] [address] Sep, [facility] [address] [id number] [address] [place] [address], [place] [address] Sep, [facility] [address] [id number] [address] [place] [address], [place] [address] Sep, [facility] [address] [id number] [address] [place] [address], [place] [address] Sep, [facility] [address] [id number] [address] [place] [address], [place] [address] Sep, [facility] [address] [id number] [address] [place] [address], [place] [address] Sep, [facility] [address] [id number] [address] [place] [address] Sep, [facility] [address] [id number] [address] [place] [address] Sep, [facility] [address] [id number] [address] [place] [address] Aug, [facility] [address] [id number] [address] [place] [address] Aug, [facility] [address] [id number] [address] [place] [address] Aug, [facility] [address] [id number] [address] [place] [address] Aug, [facility] [address] [id number] [address] [place] [address] Aug, [facility] [address] [id number] [address] [place] [id number] Jul, [facility] [address] [id number] [address] [place] [id number] Jul, [facility] [address] [id number] [address] [place] [address] Jul, [facility] [address] [id number] [address] [place] [id number] Jul, IMMUNIZATIONS No Known Immunizations SOCIAL HISTORY Never Assessed REASON FOR VISIT cough just a noc for the past 5 weeks. kbullardrn, hasnt taken lisinopril and me tformin since recent surgery 5 weeks ago. PLAN OF CARE Activity Details Follow Up w/ PCP, prn Reason:if sympto ms persist VITAL SIGNS Height 62 in 2018-06-23 Weight 285.2 lbs 2018-06-23 Temperature 98.5 degrees Fahrenheit 2018-06-23 Heart Rate 74 bpm 2018-06-23 Respiratory Rate 20 2018-06-23 BMI 52.16 kg/m2 2018-06-23 Blood pressure systolic 126 mmHg 2018-06-23 Blood pressure diastolic 74 mmHg 2018-06-23 MEDICATIONS Medication Instructions Dosage Frequency Start Date End Date Duration S tatus Vitamin D 1000 UNIT Orally Once a day 3 tablet 24h Active Ferrous Sulfate 325 (65 Fe) MG Orally Once a day 1 tablet 24h Dec Active Zoloft 100 mg Orally Once a day 2 tablets 24h Active Azithromycin 250 MG Orally Once a day 2 tablets today, 1 tablet nex t 4 days 24h Jun, Jun, 5 day(s) Active Levothyroxine Sodium 100 MCG TAKE ONE TA BLET BY MOUTH ONCE DAILY IN THE MORNING ON AN EMPTY STOMACH (MUST HAVE LABS DRAWN FOR REFILL) 90 Active PredniSONE 20 mg Orally Once a day 2 tablets 24h Jun, Jun, 5 days Active Melatonin 5 MG Orally Once a day 1 tablet at bedtime as needed with f ood 24h Active Cyanocobalamin 1000 MCG/ML Injection one time monthly inject 1 ml 84 Active Vitamin C 500 MG Active VanishPoint Syringe 23G X 1 as directed Dec, Active Zetia 10 MG TAKE ONE TABLET BY MOUTH ONCE DAILY 90 Active GuaiFENesin ER 1200 MG Orally every 12 hrs 1 tablet as needed 12h Jun, Jun, 7 days Active RESULTS No Results PROCEDURES Procedure Date Ordered Result Body Site [facility] VISIT ESTABLISHED PATIENT Jun 23, 2018 INSTRUCTIONS MEDICATIONS ADMINISTERED No Known Medications MEDICAL (GENERAL) HISTORY Type Description Date Medical History type 2 diabetes Medical History post cholecystectomy 2008 Medical History gastrointestinal disorder endoscopy stre ched esophagus in 2012 Medical History stress test- 05/2017 normal and EF 63% Medical History bowel obstruction 2017 Surgical History thyroid surgery thyroidectomy 1995 Surgical [...]
--- OUTSIDE RECORDS SUMMARY | 2020-03-16 12:03 | XMS REPORT ---
Author Author Swathi DORAN [facility] Address [address] [place] [address] Care Team Providers Care Fruit Pitter Name Role Phone BRENTON DORAN Unavailable PROBLEMS Type Condition ICD9-CM Code PTA22-IT Code Onset Dates Condition S tatus SNOMED Code Problem Right upper quadrant pain R10.11 Acti ve 29674763 Problem Crohn's disease of both small and large intestin e with complication K50.819 Active 43752381 Problem Chronic tension-type headache, intractable G44.221 Active 118985921 Problem Mixed stress and urge urinary incontinence N39.46 Active 333655607 Problem Periodic limb movement sleep disorder G47.61 Active 327426022 Problem Vitamin D deficiency E55.9 Active 27770507 Problem Sensorineural hearing loss of right ear H90.41 Active 07381654 Problem Fatty liver K76.0 Active 89117788 7 Problem Hyperlipidemia, unspecified E78.5 Ac tive 92945827 Problem Frequent falls R29.6 Active 16433 2002 Problem BMI 50.0-59.9, adult Z68.43 Active 714366585 Problem Type 2 diabetes mellitus with other specified complication E11.69 Active 908598078329 Problem Iron deficiency anemia due to chronic blood loss D 50.0 Active 29148256 Problem Chronic diarrhea K52.9 Active 236 957691 Problem Obstructive sleep apnea on CPAP G47.33 Active 69730167 Problem MACHUCA (nonalcoholic steatohepatitis) K75.81 Active 845430113 Problem Hyperlipidemia E78.5 Active 02647 004 Problem Acquired hypothyroidism E03.9 Active 105873194 Problem Vitamin B12 deficiency E53.8 Active 252826432 Problem Major depressive disorder, recurrent episode, moderate F33.1 Active 398752916 Problem Essential hypertension I10 Active 98774212 Problem Anxiety F41.9 Active 56824196 ALLERGIES No Information ENCOUNTERS Encounter Location Date Diagnosis [facility] [id number] [place] [address] Jul, Essential hypertension I10 ; Type 2 diabetes mellitus with other specified complication E11.69 ; BMI 50.0-59.9, adult Z68.43 ; Mixed stress and urge urinary incontinence N39.46 and Mid back pain on right side M54.9 [facility] [address] [address] Jun, Iron deficiency anemia due t o chronic blood loss D50.0 ; Hyperlipidemia E78.5 ; Type 2 diabetes mellitus with other specified complication E11.69 ; Vitamin B12 deficiency E53.8 and Vitamin D deficiency E55.9 [facility] [address] [address] Jun, Cough R05 and BMI 50.0-59.9, adult Z68.43 [place] [address] [address] Jun, [place] [address] [address] May, Iron deficiency anemia due t o chronic blood loss D50.0 ; Chronic diarrhea K52.9 ; Essential hypertension I10 ; Type 2 diabetes mellitus with other specified complication E11.69 ; Vitamin D deficiency E55.9 ; Colon stricture K56.699 ; Vitamin B12 deficiency E53.8 ; Hyperlipidemia E78.5 and BMI 50.0-59.9, adult Z68.43 [place] [id number] [place] [address] May, [place] [address] [address] Apr, Nonhealing wound of heel S91 .309A and Body mass index (BMI) of 50- 59.9 in adult Z68.43 [place] [id number] [place] [address] Mar, [place] [address] [address] Mar, BMI 50.0-59.9, adult Z68.43 ; Flank pain R10.9 and Weight loss counseling, encounter for Z71.3 [place] [address] [address] February, [facility] [id number] [place] [address] Jan, [place] [address] [address] Jan, [facility] [address] [address] Jan, Diarrhea due to staphylococc us A04.8 and Diarrhea, unspecified type R19.7 [place] [id number] [place] [address] Jan, Acquired hypothyroidism E03. 9 ; Type 2 diabetes mellitus with other specified complication E11.69 ; Hyperlipidemia E78.5 ; Essential hypertension I10 ; Major depressive disorder, recurrent episode, moderate F33.1 and Vitamin D deficiency E55.9 [place] [address] [address] Jan, Type 2 diabetes mellitus wit h other specified complication E11.69 ; Hyperlipidemia E78.5 ; Essential hypertension I10 ; Acquired hypothyroidism E03.9 ; Major depressive disorder, recurrent episode, moderate F33.1 ; Vitamin D deficiency E55.9 ; Sinus congestion R09.81 and BMI 50.0-59.9, adult Z68.43 [place] [id number] [place] [address] Dec, [place] [address] [address] Sep, Encounter for immunization Z 23 [place] [id number] [place] [address] Sep, [place] [address] [address] Sep, Vitamin B12 deficiency E53.8 [facility] [address] [facility] [id number] [address] [place] [address] Aug, [place] [address] [place] [id number] [place] [address] Aug, BMI 60.0-69.9, adult Z68.44 and Acute non-recurrent maxillary sinusitis J01.00 [place] [address] [place] [id number] [place] [address] Aug, [place] [address] [place] [id number] [place] [address] Aug, Medicare annual wellness vis it, initial Z00.00 ; Screening for breast cancer Z12.31 ; BMI 40.0-44.9, adult Z68.41 and Acquired hypothyroidism E03.9 [place] [id number] [place] [address] Jul, Actinic keratosis L57.0 [place] [address] [place] [id number] [place] [address] Jul, Actinic keratosis L57.0 [place] [address] [place] [id number] [place] [address] Jul, Type 2 diabetes mellitus wit h other specified complication E11.69 ; Actinic keratosis L57.0 and Hypothyroidism, unspecified E03.9 [place] [address] [facility] [id number] [address] [place] [address] Jul, [place] [address] [place] [id number] [place] [address] Jul, [place] [address] [place] [id number] [place] [address] Jul, Vitamin B12 deficiency E53.8 [place] [address] [place] [id number] [place] [address] Jun, Acquired hypothyroidism E03. 9 and Chronic tension-type headache, intractable G44.221 [facility] [address] [facility] [id number] [address] [place] [address] Jun, Back muscle spasm M62.830 an d BMI 50.0-59.9, adult Z68.43 [facility] [address] [facility] [id number] [address] [place] [address] Jun, Vitamin B12 deficiency E53.8 [facility] [address] [facility] [id number] [address] [place] [address] Jun, Crohn's disease of both smal l and large intestine with complication K50.819 [place] [address] [place] [id number] [place] [address] Jun, Crohn's disease of both smal l and large intestine with complication K50.819 [place] [address] [id number] [place] [address] May, Hyperlipidemia E78.5 ; Anxie ty F41.9 and Essential hypertension I10 [place] [address] [id number] [place] [address] May, [place] [address] [id number] [place] [address] May, Encounter for immunization Z 23 and Vitamin B12 deficiency E53.8 [facility] [address] [facility] [id number] [address] [place] [address] May, [facility] [address] [facility] [id number] [address] [place] [address] Apr, [facility] [address] [facility] [id number] [address] [place] [address] Apr, [place] [address] [place] [id number] [place] [address] Apr, Crohn's disease of both smal l and large intestine with complication K50.819 [facility] [id number] [place] [address] Apr, Vitamin B12 deficiency E53.8 [facility] [address] [id number] [address] [place] [address] Apr, Crohn's disease of both smal l and large intestine with complication K50.819 and Acute pain of right shoulder M25.511 [facility] [address] [facility] [id number] [address] [place] [address] Mar, Type 2 diabetes mellitus wit hout complication E11.9 ; Frequent falls R29.6 and Other chest pain R07.89 [facility] [address] [id number] [address] [place] [address] Mar, [place] [address] [facility] [id number] [address] [place] [address] Mar, [place] [address] [facility] [id number] [address] [place] [address] Mar, Type 2 diabetes mellitus wit hout complication E11.9 and Blurry vision, bilateral H53.8 [facility] [address] [id number] [address] [place] [address] Mar, Vitamin B12 deficiency E53.8 [place] [address] [facility] [id number] [address] [place] [address] Mar, Crohn's disease of both smal l and large intestine with complication K50.819 [place] [address] [facility] [id number] [address] [place] [address] February, Vitamin B12 deficiency E53.8 [facility] [address] [id number] [address] [place] [address] Jan, Crohn's disease of both smal l and large intestine with complication K50.819 [facility] [address] [facility] [id number] [address] [place] [address] Jan, Crohn's disease of both smal l and large intestine with complication K50.819 [facility] [address] [id number] [address] [place] [address] Jan, Dark brown-colored urine R82 .99 and Acute suppurative otitis media of right ear without spontaneous rupture of tympanic membrane, recurrence not specified H66.001 [place] [address] [id number] [place] [address] Jan, Encounter for immunization Z 23 [place] [address] [address] Dec, Crohn's disease of both smal l and large intestine with complication K50.819 and Eustachian tube dysfunction, right H69.81 [place] [address] [address] Dec, [place] [address] [address] Dec, Contusion of right knee, ini tial encounter S80.01XA [place] [address] [address] Dec, [place] [address] [address] Dec, Acute pain of right knee M25 .561 [place] [address] [address] Dec, Iron deficiency anemia due t o chronic blood loss D50.0 [place] [id number] [place] [address] Dec, Hyperlipidemia E78.5 ; Type 2 diabetes mellitus without complication E11.9 ; Vitamin B12 deficiency E53.8 ; Essential hypertension I10 ; Obstructive sleep apnea on CPAP G47.33 and Periodic limb movement sleep disorder G47.61 [place] [id number] [place] [address] Nov, Type 2 diabetes mellitus wit hout complication E11.9 ; Vitamin B12 deficiency E53.8 ; Hyperlipidemia E78.5 ; Essential hypertension I10 ; Obstructive sleep apnea on CPAP G47.33 ; Periodic limb movement sleep disorder G47.61 ; Anxiety F41.9 ; Acquired hypothyroidism E03.9 and Chronic tension-type headache, intractable G44.221 [facility] [address] [facility] [id number] [address] [place] [address] 10 Nov, 2016 Crohn's disease of both smal l and large intestine with complication K50.819 [facility] [address] [id number] [address] [place] [address] Nov, Vitamin B12 deficiency E53.8 [facility] [address] [id number] [address] [place] [address] Oct, [place] [address] [facility] [id number] [address] [place] [address] Oct, Vitamin B12 deficiency E53.8 [place] [address] [facility] [id number] [address] [place] [address] Sep, [place] [address] [facility] [id number] [address] [place] [address] Sep, Vitamin B12 deficiency E53.8 [place] [address] [facility] [id number] [address] [place] [address] Aug, [facility] [address] [facility] [id number] [address] [place] [address] Aug, Vitamin B12 deficiency E53.8 [facility] [address] [facility] [id number] [address] [place] [address] Aug, [place] [address] [facility] [id number] [address] [place] [address] Jul, Elevated ALT measurement R74 .0 [place] [address] [facility] [id number] [address] [place] [address] Jul, Hematuria R31.9 ; Acute righ t-sided thoracic back pain M54.6 ; Major depressive disorder, recurrent episode, moderate F33.1 and Elevated ALT measurement R74.0 [place] [address] [facility] [id number] [address] [place] [address] Jul, [place] [address] [address] 19 Jul, 2016 Elevated ALT measurement R74 .0 [place] [address] [address] 14 Jul, 2016 Iron deficiency anemia due t o chronic blood loss D50.0 [place] [address] [address] 14 Jul, 2016 Type 2 diabetes mellitus wit hout complication E11.9 ; Acquired hypothyroidism E03.9 ; Iron deficiency anemia due to chronic blood loss D50.0 ; Hyperlipidemia E78.5 and Essential hypertension I10 [place] [address] [address] 26 Jun, 2016 [place] [address] [address] Jun, Vitamin B12 deficiency E53.8 [place] [address] [address] 16 Jun, 2016 Type 2 diabetes mellitus wit hout complication E11.9 ; Acquired hypothyroidism E03.9 ; Iron deficiency anemia due to chronic blood loss D50.0 ; Hyperlipidemia E78.5 ; Essential hypertension I10 ; Chronic tension-type headache, intractable G44.221 ; Pulsatile tinnitus, bilateral H93.13 ; Obstructive sleep apnea on CPAP G47.33 and Major depressive disorder, recurrent episode, moderate F33.1 [place] [address] [address] May, Vitamin B12 deficiency E53.8 [place] [address] [address] May, [place] [address] [address] Apr, Vitamin B12 deficiency E53.8 [place] [address] [address] Apr, [facility] [address] [facility] [id number] [address] [place] [address] 28 Mar, 2016 Chronic tension-type headach e, intractable G44.221 and Major depressive disorder, recurrent episode, moderate F33.1 [facility] [address] [facility] [id number] [address] [place] [address] 14 Mar, 2016 Vitamin B12 deficiency E53.8 [facility] [address] [facility] [id number] [address] [place] [address] February, [facility] [address] [facility] [id number] [address] [place] [address] February, Vitamin B12 deficiency E53.8 [facility] [address] [facility] [id number] [address] [place] [address] February, [facility] [address] [facility] [id number] [address] [place] [address] Jan, Dysuria R30.0 [facility] [address] [facility] [id number] [address] [place] [address] Jan, Type 2 diabetes mellitus wit hout complication E11.9 and Essential hypertension I10 [facility] [address] [facility] [id number] [address] [place] [address] 15 Jan, 2016 Chronic diarrhea K52.9 [facility] [address] [facility] [id number] [address] [place] [address] Jan, [facility] [address] [facility] [id number] [address] [place] [address] Jan, Chronic diarrhea K52.9 [facility] [address] [facility] [id number] [address] [place] [address] Jan, [facility] [address] [facility] [id number] [address] [place] [address] Jan, Dysuria R30.0 [facility] [address] [facility] [id number] [address] [place] [address] 07 Jan, 2016 Vitamin B12 deficiency E53.8 [facility] [address] [facility] [id number] [address] [place] [address] 07 Jan, 2016 Dysuria R30.0 and Iron defic iency anemia due to chronic blood loss D50.0 [facility] [address] [facility] [id number] [address] [place] [address] 05 Jan, 2016 Dysuria R30.0 [facility] [address] [facility] [id number] [address] [place] [address] 04 Jan, 2016 [facility] [address] [facility] [id number] [address] [place] [address] 15 Dec, 2015 [facility] [address] [facility] [id number] [address] [place] [address] 11 Dec, 2015 Iron deficiency anemia due t o chronic blood loss D50.0 [facility] [address] [facility] [id number] [address] [place] [address] 10 Dec, 2015 Dysuria R30.0 ; Fatigue R53. 83 ; Hyperlipidemia E78.5 and Diarrhea R19.7 [facility] [address] [facility] [id number] [address] [place] [address] Dec, [facility] [address] [facility] [id number] [address] [place] [address] 02 Dec, 2015 [facility] [address] [facility] [id number] [address] [place] [address] 10 Nov, 2015 Vitamin B12 deficiency E53.8 [facility] [address] [facility] [id number] [address] [place] [address] 13 Oct, 2015 Vitamin B12 deficiency E53.8 [facility] [address] [facility] [id number] [address] [place] [address] 12 Oct, 2015 [facility] [address] [facility] [id number] [address] [place] [address] 09 Oct, 2015 Headache R51 [facility] [address] [place] [id number] [place] [address] Oct, Essential hypertension I10 ; Type 2 diabetes mellitus without complication E11.9 ; Vitamin B12 deficiency E53.8 ; Acquired hypothyroidism E03.9 ; Iron deficiency anemia due to chronic blood loss D50.0 and Hyperlipidemia E78.5 [facility] [address] [facility] [id number] [address] [place] [address] Sep, Essential hypertension I10 ; Vitamin B12 deficiency E53.8 ; Iron deficiency anemia due to chronic blood loss D50.0 ; Type 2 diabetes mellitus without complication E11.9 ; Hyperlipidemia E78.5 and Acquired hypothyroidism E03.9 [facility] [address] [facility] [id number] [address] [place] [address] Sep, [facility] [address] [place] [id number] [place] [address] Sep, [facility] [address] [place] [id number] [place] [address] Jul, [facility] [address] [place] [id number] [place] [address] Jun, [facility] [address] [facility] [id number] [address] [place] [address] Jun, [facility] [address] [place] [id number] [place] [address] Jun, Hyperlipidemia 272.4 ; Iron deficiency anemia 280.9 ; Hypothyroidism 244.9 ; Diabetes mellitus without mention of complication, type II or unspecified type, not stated as uncontrolled 250.00 and Hypertension 401.9 [facility] [address] [facility] [id number] [address] [place] [address] Jun, [facility] [address] [place] [id number] [address] [place] [address] Jun, [facility] [address] [place] [id number] [place] [address] May, Hyperlipidemia 272.4 [facility] [address] [place] [id number] [place] [address] May, [facility] [address] [id number] [address] [place] [address] May, [facility] [address] [id number] [address] [place] [address] Apr, Diabetes mellitus without me ntion of complication, type II or unspecified type, not stated as uncontrolled 250.00 ; Hypothyroidism 244.9 ; Hyperlipidemia 272.4 ; Pain in joint, lower leg 719.46 and RUQ pain 789.01 [facility] [address] [id number] [address] [place] [address] Mar, Sinusitis 473.9 [facility] [address] [id number] [address] [place] [address] Mar, [facility] [address] [facility] [id number] [address] [place] [address] Mar, [facility] [address] [id number] [address] [place] [address] Mar, Hematochezia 578.1 [facility] [address] [id number] [address] [place] [address] February, Sinusitis 473.9 [facility] [address] [id number] [address] [place] [address] February, [facility] [address] [id number] [address] [place] [address] Jan, [facility] [address] [id number] [address] [place] [address] Jan, [facility] [address] [id number] [address] [place] [address] Dec, [facility] [address] [id number] [address] [place] [address] Dec, [facility] [address] [id number] [address] [place] [address] Dec, [facility] [address] [id number] [address] [place] [address], [place] [address] 24 Dec, 2014 [facility] [address] [id number] [address] [place] [address], [place] [address] Dec, [facility] [address] [id number] [address] [place] [address], [place] [address] Dec, [facility] [address] [id number] [address] [place] [address], [place] [address] Dec, [facility] [address] [id number] [address] [place] [address], [place] [address] Dec, [facility] [address] [id number] [address] [place] [address], [place] [address] Dec, [facility] [address] [id number] [address] [place] [address], [place] [address] Dec, [facility] [address] [id number] [address] [place] [address], [place] [address] Dec, [facility] [address] [id number] [address] [place] [address], [place] [address] Nov, [facility] [address] [id number] [address] [place] [address], [place] [address] Nov, [facility] [address] [id number] [address] [place] [address], [place] [address] Nov, [facility] [address] [id number] [address] [place] [address], [place] [address] Nov, [facility] [address] [id number] [address] [place] [address], [place] [address] Oct, [facility] [address] [id number] [address] [place] [address], [place] [address] Oct, [facility] [address] [id number] [address] [place] [address], [place] [address] Oct, [facility] [address] [id number] [address] [place] [address], [place] [address] Oct, [facility] [address] [id number] [address] [place] [address], [place] [address] Oct, [facility] [address] [id number] [address] [place] [address], [place] [address] Oct, [facility] [address] [address] [id number] [address] [place] [address], [place] [address] Sep, [facility] [address] [id number] [address] [place] [address], [place] [address] Sep, [facility] [address] [id number] [address] [place] [address], [place] [address] Sep, [facility] [address] [id number] [address] [place] [address], [place] [address] Sep, [facility] [address] [id number] [address] [place] [address], [place] [address] Sep, [facility] [address] [id number] [address] [place] [address], [place] [address] Sep, [facility] [address] [id number] [address] [place] [address], [place] [address] Sep, [facility] [address] [id number] [address] [place] [address], [place] [address] Aug, [facility] [address] [id number] [address] [place] [address], [place] [address] Aug, [facility] [address] [id number] [address] [place] [address], [place] [address] Aug, [facility] [address] [id number] [address] [place] [address], [place] [address] Aug, [facility] [address] [id number] [address] [place] [address], [place] [address] Aug, [facility] [address] [id number] [address] [place] [address], [place] [address] Aug, [facility] [address] [id number] [address] [place] [address], [place] [address] 18 Aug, 2014 [facility] [address] [id number] [address] [place] [address], [place] [address] 18 Aug, 2014 [facility] [address] [id number] [address] [place] [address], [place] [address] Aug, [facility] [address] [id number] [address] [place] [address], [place] [address] Aug, [facility] [address] [id number] [address] [place] [address], [place] [address] Aug, [facility] [address] [id number] [address] [place] [address], [place] [address] Aug, [facility] [address] [id number] [address] [place] [address], [place] [address] Aug, [facility] [address] [id number] [address] [place] [address], [place] [address] Aug, [facility] [address] [id number] [address] [place] [address], [place] [address] Jul, [facility] [address] [id number] [address] [place] [address], [place] [address] Jul, [facility] [address] [id number] [address] [place] [address], [place] [address] Jul, [facility] [address] [id number] [address] [place] [address], [place] [address] Jul, [facility] [address] [id number] [address] [place] [address], [place] [address] 24 Jun, 2014 [facility] [address] [id number] [address] [place] [address], [place] [address] 24 Jun, 2014 [facility] [address] [id number] [address] [place] [address], [place] [address] Jun, [facility] [address] [id number] [address] [place] [address], [place] [address] Jun, [facility] [address] [id number] [facility] [place] [address] 19 Jun, 2013 [facility] [address] [id number] [facility] [place] [address] 19 Jun, 2013 [facility] [address] [id number] [facility] [place] [address] 11 Jun, 2013 [facility] [address] [id number] [facility] [place] [address] 11 Jun, 2013 [facility] [address] [id number] [facility] [place] [address] 11 Jun, 2013 [facility] [address] [id number] [address] [place] [address], [place] [address] 11 Jun, 2013 [facility] [address] [id number] [address] [place] [address], [place] [address] 10 Jun, 2013 [facility] [address] [id number] [address] [place] [address], [place] [address] 10 Jun, 2013 [facility] [address] [id number] [address] [place] [address], [place] [address] 09 Jun, 2014 [facility] [address] [id number] [address] [place] [address], [place] [address] 09 Jun, 2013 [facility] [address] [id number] [address] [place] [address], [place] [address] 14 May, 2014 [facility] [address] [id number] [address] [place] [address], [place] [address] 14 May, 2014 [facility] [address] [id number] [address] [place] [address], [place] [address] May, [facility] [address] [id number] [address] [place] [address], [place] [address] May, [facility] [address] [id number] [address] [place] [address], [place] [address] May, [facility] [address] [id number] [address] [place] [address], [place] [address] May, [facility] [address] [id number] [facility] [place] [address] Apr, [facility] [address] [id number] [address] [place] [address], [place] [address] Apr, [facility] [address] [id number] [facility] [place] [address] Apr, [facility] [address] [id number] [address] [place] [address], [place] [address] Apr, [facility] [address] [id number] [facility] [place] [address] Apr, [facility] [address] [id number] [address] [place] [address], [place] [address] Apr, [facility] [address] [id number] [address] [place] [address], [place] [address] Apr, [facility] [address] [id number] [address] [place] [address], [place] [address] Apr, [facility] [address] [id number] [address] [place] [address], [place] [address] Apr, [facility] [address] [id number] [address] [place] [address], [place] [address] Apr, [facility] [address] [id number] [address] [place] [address], [place] [address] Apr, [facility] [address] [id number] [address] [place] [address], [place] [address] Mar, [facility] [address] [id number] [address] [place] [address], [place] [address] Mar, [facility] [address] [id number] [address] [place] [address], [place] [address] Mar, [facility] [address] [id number] [address] [place] [address], [place] [address] Mar, [facility] [address] [id number] [address] [place] [address], [place] [address] February, [facility] [address] [id number] [address] [place] [address], [place] [address] February, [facility] [address] [id number] [address] [place] [address], [place] [address] Jan, [facility] [address] [id number] [address] [place] [address], [place] [address] Jan, [facility] [address] [place], [place] [id number] Jan, [facility] [address] [id number] [address] [place] [address], [place] [address] Jan, [facility] [address] [id number] [address] [place] [address], [place] [address] Jan, [facility] [address] [id number] [address] [place] [address], [place] [address] Jan, [facility] [address] [id number] [address] [place] [address], [place] [address] Jan, [facility] [address] [id number] [address] [place] [address], [place] [address] Jan, [facility] [address] [id number] [address] [place] [address], [place] [address] Jan, [facility] [address] [id number] [address] [place] [address], [place] [address] Jan, [facility] [address] [id number] [address] [place] [address], [place] [address] Jan, [facility] [address] [id number] [address] [place] [address], [place] [address] Jan, [facility] [address] [id number] [address] [place] [address], [place] [address] Jan, [facility] [address] [id number] [address] [place] [address], [place] [address] Jan, [facility] [address] [id number] [facility] [place] [address] 07 Jan, 2014 [facility] [address] [id number] [address] [place] [address], [place] [address] Jan, [facility] [address] [id number] [address] [place] [address], [place] [address] Jan, [facility] [address] [id number] [address] [place] [address], [place] [address] Dec, [facility] [address] [id number] [address] [place] [address], [place] [address] Dec, [facility] [address] [id number] [address] [place] [address], [place] [address] Dec, [facility] [address] [id number] [address] [place] [address], [place] [address] Dec, [facility] [address] [id number] [address] [place] [address], [place] [address] Dec, [facility] [address] [id number] [address] [place] [address], [place] [address] Dec, [facility] [address] [id number] [address] [place] [address], [place] [address] Dec, [facility] [address] [id number] [address] [place] [address], [place] [address] Nov, [facility] [address] [id number] [address] [place] [address], [place] [address] Nov, [facility] [address] [id number] [address] [place] [address], [place] [address] Nov, [facility] [address] [id number] [address] [place] [address], [place] [address] Nov, [facility] [address] [id number] [address] [place] [address], [place] [address] Nov, [facility] [address] [id number] [address] [place] [address], [place] [address] Nov, [facility] [address] [id number] [address] [place] [address], [place] [address] Nov, [facility] [address] [id number] [address] [place] [address], [place] [address] Oct, [facility] [address] [id number] [address] [place] [address], [place] [address] Oct, [facility] [address] [id number] [address] [place] [address], [place] [address] Sep, [facility] [address] [id number] [address] [place] [address], [place] [address] Sep, [facility] [address] [id number] [address] [place] [address], [place] [address] Sep, [facility] [address] [id number] [address] [place] [address], [place] [address] Sep, [facility] [address] [id number] [address] [place] [address], [place] [address] Sep, [facility] [address] [id number] [address] [place] [address], [place] [address] Sep, [facility] [address] [id number] [address] [place] [address], [place] [address] Sep, [facility] [address] [id number] [address] [place] [address], [place] [address] Sep, [facility] [address] [id number] [address] [place] [address], [place] [address] Sep, [facility] [address] [id number] [address] [place] [address], [place] [address] Sep, [facility] [address] [id number] [address] [place] [address], [place] [address] Aug, [facility] [address] [id number] [address] [place] [address], [place] [address] Aug, [facility] [address] [id number] [address] [place] [address] Aug, [facility] [address] [id number] [address] [place] [address] Aug, [facility] [address] [id number] [address] [place] [address] Aug, [facility] [address] [id number] [address] [place] [address] Jul, [facility] [address] [id number] [address] [place] [address] Jul, [facility] [address] [id number] [address] [place] [address] Jul, [facility] [address] [facility] [id number] [address] [place] [address] Jul, IMMUNIZATIONS No Known Immunizations SOCIAL HISTORY Never Assessed REASON FOR VISIT Lab (walk-in) PLAN OF CARE VITAL SIGNS MEDICATIONS No Known Medications RESULTS No Results PROCEDURES Procedure Date Ordered Result Body Site LAB NOT BILLED BY [facility] Jul 05, 2018 Hemoglobin Test Send Out 0 dollar Jul 05, 2018 [place]ENS[place], ROUTINE* Jul 05, 2018 INSTRUCTIONS MEDICATIONS ADMINISTERED No Known Medications [...]
--- OUTSIDE RECORDS SUMMARY | 2020-03-16 12:03 | XMS REPORT ---
Author Author Swathi DORAN [facility] Address [address] [place] [address] Care Team Providers Care Judge Name Role Phone BRENTON DORAN Unavailable PROBLEMS Type Condition ICD9-CM Code CIE56-UM Code Onset Dates Condition S tatus SNOMED Code Problem Anxiety F41.9 Active 41684441 Problem Chronic tension-type headache, intractable G44.221 Active 450036501 Problem Right upper quadrant pain R10.11 Acti ve 27238351 Problem Vitamin D deficiency E55.9 Active 21957093 Problem Sensorineural hearing loss of right ear H90.41 Active 37472204 Problem BMI 50.0-59.9, adult Z68.43 Active 679878600 Problem Fatty liver K76.0 Active 05129722 7 Problem Frequent falls R29.6 Active 72872 2002 Problem Crohn's disease of both small and large intestin e with complication K50.819 Active 37980161 Problem Type 2 diabetes mellitus with other specified complication E11.69 Active 860230302739 Problem Hyperlipidemia, unspecified E78.5 Ac tive 52454822 Problem MACHUCA (nonalcoholic steatohepatitis) K75.81 Active 915367779 Problem Iron deficiency anemia due to chronic blood loss D 50.0 Active 80988525 Problem Periodic limb movement sleep disorder G47.61 Active 964389779 Problem Obstructive sleep apnea on CPAP G47.33 Active 77958479 Problem Essential hypertension I10 Active 25913923 Problem Hyperlipidemia E78.5 Active 51506 004 Problem Chronic diarrhea K52.9 Active 236 171106 Problem Acquired hypothyroidism E03.9 Active 899459580 Problem Vitamin B12 deficiency E53.8 Active 995573469 Problem Major depressive disorder, recurrent episode, moderate F33.1 Active 156999381 ALLERGIES No Information ENCOUNTERS Encounter Location Date Diagnosis [facility] [address] [facility] [id number] [address] [address] Jul, [facility] [address] [place] [id number] [address] [place] [address] Jun, Iron deficiency anemia due t o chronic blood loss D50.0 ; Hyperlipidemia E78.5 ; Type 2 diabetes mellitus with other specified complication E11.69 ; Vitamin B12 deficiency E53.8 and Vitamin D deficiency E55.9 [facility] [address] [place] [id number] [address] [place] [address] Jun, Cough R05 and BMI 50.0-59.9, adult Z68.43 [facility] [address] [address] Jun, [place] [address] [address] May, Iron deficiency anemia due t o chronic blood loss D50.0 ; Chronic diarrhea K52.9 ; Essential hypertension I10 ; Type 2 diabetes mellitus with other specified complication E11.69 ; Vitamin D deficiency E55.9 ; Colon stricture K56.699 ; Vitamin B12 deficiency E53.8 ; Hyperlipidemia E78.5 and BMI 50.0-59.9, adult Z68.43 [place] [address] [address] May, [place] [address] [place] [id number] [address] [place] [address] Apr, Nonhealing wound of heel S91 .309A and Body mass index (BMI) of 50- 59.9 in adult Z68.43 [facility] [address] [place] [address] [place] [address] Mar, [place] [address] [address] Mar, BMI 50.0-59.9, adult Z68.43 ; Flank pain R10.9 and Weight loss counseling, encounter for Z71.3 [place] [address] [address] February, [facility] [address] [place] [address] Jan, [place] [address] [address] Jan, [facility] [address] [place] [id number] [address] [place] [address] Jan, Diarrhea due to staphylococc us A04.8 and Diarrhea, unspecified type R19.7 [place] [address] [place] [address] [place] [address] Jan, Acquired hypothyroidism E03. 9 ; Type 2 diabetes mellitus with other specified complication E11.69 ; Hyperlipidemia E78.5 ; Essential hypertension I10 ; Major depressive disorder, recurrent episode, moderate F33.1 and Vitamin D deficiency E55.9 [place] [address] [address] Jan, Type 2 diabetes mellitus wit h other specified complication E11.69 ; Hyperlipidemia E78.5 ; Essential hypertension I10 ; Acquired hypothyroidism E03.9 ; Major depressive disorder, recurrent episode, moderate F33.1 ; Vitamin D deficiency E55.9 ; Sinus congestion R09.81 and BMI 50.0-59.9, adult Z68.43 [place] [address] [place] [address] [place] [address] Dec, [place] [address] [address] Sep, Encounter for immunization Z 23 [place] [address] [place] [address] [place] [address] Sep, [place] [address] [address] Sep, Vitamin B12 deficiency E53.8 [place] [address] [place] [address] [place] [address] Aug, [place] [address] [address] Aug, BMI 60.0-69.9, adult Z68.44 and Acute non-recurrent maxillary sinusitis J01.00 [place] [address] [facility] [id number] [address] [place] [address] 14 Aug, 2017 [place] [address] [place] [id number] [address] [place] [address] 02 Aug, 2017 Medicare annual wellness vis it, initial Z00.00 ; Screening for breast cancer Z12.31 ; BMI 40.0-44.9, adult Z68.41 and Acquired hypothyroidism E03.9 [place] [address] [facility] [id number] [address] [place] [address] Jul, Actinic keratosis L57.0 [place] [address] [place] [id number] [address] [place] [address] Jul, Actinic keratosis L57.0 [place] [address] [address] Jul, Type 2 diabetes mellitus wit h other specified complication E11.69 ; Actinic keratosis L57.0 and Hypothyroidism, unspecified E03.9 [place] [address] [place] [id number] [address] [place] [address] Jul, [place] [address] [place] [id number] [address] [place] [address] Jul, [place] [address] [place] [address] [place] [address] Jul, Vitamin B12 deficiency E53.8 [place] [address] [facility] [id number] [address] [place] [address] Jun, Acquired hypothyroidism E03. 9 and Chronic tension-type headache, intractable G44.221 [place] [address] [facility] [id number] [address] [place] [address] Jun, Back muscle spasm M62.830 an d BMI 50.0-59.9, adult Z68.43 [place] [address] [place] [id number] [address] [place] [address] Jun, Vitamin B12 deficiency E53.8 [facility] [address] [facility] [id number] [address] [place] [address] Jun, Crohn's disease of both smal l and large intestine with complication K50.819 [facility] [address] [facility] [id number] [address] [place] [address] Jun, Crohn's disease of both smal l and large intestine with complication K50.819 [facility] [address] [facility] [id number] [address] [place] [address] May, Hyperlipidemia E78.5 ; Anxie ty F41.9 and Essential hypertension I10 [facility] [address] [facility] [id number] [address] [place] [address] May, [place] [address] [facility] [id number] [address] [place] [address] May, Encounter for immunization Z 23 and Vitamin B12 deficiency E53.8 [facility] [address] [facility] [id number] [address] [place] [address] May, [facility] [address] [facility] [id number] [address] [place] [address] Apr, [facility] [address] [facility] [id number] [address] [place] [address] Apr, [place] [address] [facility] [id number] [address] [place] [address] Apr, Crohn's disease of both smal l and large intestine with complication K50.819 [facility] [address] [facility] [id number] [address] [place] [address] Apr, Vitamin B12 deficiency E53.8 [facility] [address] [facility] [id number] [address] [place] [address] Apr, Crohn's disease of both smal l and large intestine with complication K50.819 and Acute pain of right shoulder M25.511 [place] [id number] [facility] [id number] [address] [place] [address] Mar, Type 2 diabetes mellitus wit hout complication E11.9 ; Frequent falls R29.6 and Other chest pain R07.89 [facility] [address] [facility] [id number] [address] [place] [address] 14 Mar, 2017 [place] [address] [place] [id number] [address] [place] [address] Mar, [place] [address] [place] [id number] [address] [place] [address] Mar, Type 2 diabetes mellitus wit hout complication E11.9 and Blurry vision, bilateral H53.8 [place] [address] [place] [id number] [address] [place] [address] Mar, Vitamin B12 deficiency E53.8 [place] [address] [place] [id number] [address] [place] [address] Mar, Crohn's disease of both smal l and large intestine with complication K50.819 [place] [address] [place] [address] [place] [address] February, Vitamin B12 deficiency E53.8 [place] [address] [place] [id number] [address] [place] [address] Jan, Crohn's disease of both smal l and large intestine with complication K50.819 [facility] [address] [place] [id number] [address] [place] [address] Jan, Crohn's disease of both smal l and large intestine with complication K50.819 [facility] [address] [place] [id number] [address] [place] [address] Jan, Dark brown-colored urine R82 .99 and Acute suppurative otitis media of right ear without spontaneous rupture of tympanic membrane, recurrence not specified H66.001 [facility] [address] [place] [id number] [address] [place] [address] Jan, Encounter for immunization Z 23 [place] [address] [place] [address] [place] [address] Dec, Crohn's disease of both smal l and large intestine with complication K50.819 and Eustachian tube dysfunction, right H69.81 [place] [address] [address] Dec, [place] [address] [address] Dec, Contusion of right knee, ini tial encounter S80.01XA [place] [address] [address] Dec, [place] [address] [address] Dec, Acute pain of right knee M25 .561 [place] [address] [address] Dec, Iron deficiency anemia due t o chronic blood loss D50.0 [place] [address] [address] Dec, Hyperlipidemia E78.5 ; Type 2 diabetes mellitus without complication E11.9 ; Vitamin B12 deficiency E53.8 ; Essential hypertension I10 ; Obstructive sleep apnea on CPAP G47.33 and Periodic limb movement sleep disorder G47.61 [place] [address] [place] [address] Nov, Type 2 diabetes mellitus wit hout complication E11.9 ; Vitamin B12 deficiency E53.8 ; Hyperlipidemia E78.5 ; Essential hypertension I10 ; Obstructive sleep apnea on CPAP G47.33 ; Periodic limb movement sleep disorder G47.61 ; Anxiety F41.9 ; Acquired hypothyroidism E03.9 and Chronic tension-type headache, intractable G44.221 [place] [address] [place] [address] [place] [address] Nov, Crohn's disease of both smal l and large intestine with complication K50.819 [facility] [address] [id number] [address] [place] [address] 10 Nov, 2016 Vitamin B12 deficiency E53.8 [facility] [address] [id number] [address] [place] [address] Oct, [facility] [address] [id number] [address] [place] [address] Oct, Vitamin B12 deficiency E53.8 [facility] [address] [id number] [address] [place] [address] Sep, [facility] [address] [id number] [address] [place] [address] Sep, Vitamin B12 deficiency E53.8 [facility] [address] [id number] [address] [place] [address] Aug, [facility] [address] [id number] [address] [place] [address] Aug, Vitamin B12 deficiency E53.8 [facility] [address] [id number] [address] [place] [address] Aug, [facility] [address] [id number] [address] [place] [address] 24 Jul, 2016 Elevated ALT measurement R74 .0 [facility] [address] [id number] [address] [place] [address] Jul, Hematuria R31.9 ; Acute righ t-sided thoracic back pain M54.6 ; Major depressive disorder, recurrent episode, moderate F33.1 and Elevated ALT measurement R74.0 [facility] [address] [id number] [address] [place] [address] Jul, [facility] [address] [id number] [address] [place] [address] Jul, Elevated ALT measurement R74 .0 [facility] [address] [address] 14 Jul, 2016 Iron deficiency anemia due t o chronic blood loss D50.0 [place] [address] [address] 14 Jul, 2016 Type 2 diabetes mellitus wit hout complication E11.9 ; Acquired hypothyroidism E03.9 ; Iron deficiency anemia due to chronic blood loss D50.0 ; Hyperlipidemia E78.5 and Essential hypertension I10 [place] [address] [address] 26 Jun, 2016 [place] [address] [address] 20 Jun, 2016 Vitamin B12 deficiency E53.8 [place] [address] [address] 16 Jun, 2016 Type 2 diabetes mellitus wit hout complication E11.9 ; Acquired hypothyroidism E03.9 ; Iron deficiency anemia due to chronic blood loss D50.0 ; Hyperlipidemia E78.5 ; Essential hypertension I10 ; Chronic tension-type headache, intractable G44.221 ; Pulsatile tinnitus, bilateral H93.13 ; Obstructive sleep apnea on CPAP G47.33 and Major depressive disorder, recurrent episode, moderate F33.1 [place] [address] [place] [address] [place] [address] May, Vitamin B12 deficiency E53.8 [place] [address] [address] May, [place] [address] [address] Apr, Vitamin B12 deficiency E53.8 [place] [address] [address] 05 Apr, 2016 [place] [address] [address] Mar, Chronic tension-type headach e, intractable G44.221 and Major depressive disorder, recurrent episode, moderate F33.1 [place] [address] [facility] [id number] [address] [place] [address] 14 Mar, 2016 Vitamin B12 deficiency E53.8 [facility] [address] [facility] [id number] [address] [place] [address] February, [facility] [address] [facility] [id number] [address] [place] [address] February, Vitamin B12 deficiency E53.8 [facility] [address] [facility] [id number] [address] [place] [address] February, [facility] [address] [facility] [id number] [address] [place] [address] 27 Jan, 2016 Dysuria R30.0 [facility] [address] [facility] [id number] [address] [place] [address] 22 Jan, 2016 Type 2 diabetes mellitus wit hout complication E11.9 and Essential hypertension I10 [facility] [address] [facility] [id number] [address] [place] [address] 15 Jan, 2016 Chronic diarrhea K52.9 [facility] [address] [facility] [id number] [address] [place] [address] 13 Jan, 2016 [facility] [address] [facility] [id number] [address] [place] [address] Jan, Chronic diarrhea K52.9 [facility] [address] [facility] [id number] [address] [place] [address] Jan, [facility] [address] [facility] [id number] [address] [place] [address] Jan, Dysuria R30.0 [facility] [address] [facility] [id number] [address] [place] [address] 07 Jan, 2016 Vitamin B12 deficiency E53.8 [facility] [address] [facility] [id number] [address] [place] [address] 07 Jan, 2016 Dysuria R30.0 and Iron defic iency anemia due to chronic blood loss D50.0 [facility] [address] [facility] [id number] [address] [place] [address] 05 Jan, 2016 Dysuria R30.0 [facility] [address] [address] 04 Jan, 2016 [facility] [address] [facility] [id number] [address] [place] [address] 15 Dec, 2015 [facility] [address] [address] Dec, Iron deficiency anemia due t o chronic blood loss D50.0 [facility] [address] [place] [id number] [address] [place] [address] 10 Dec, 2015 Dysuria R30.0 ; Fatigue R53. 83 ; Hyperlipidemia E78.5 and Diarrhea R19.7 [place] [address] [place] [id number] [place] [address] Dec, [facility] [address] [place] [address] [place] [address] Dec, [facility] [address] [place] [address] [place] [address] Nov, Vitamin B12 deficiency E53.8 [facility] [address] [place] [address] [place] [address] Oct, Vitamin B12 deficiency E53.8 [facility] [address] [place] [address] [place] [address] Oct, [facility] [address] [facility] [id number] [address] [place] [address] 09 Oct, 2015 Headache R51 [facility] [address] [address] 07 Oct, 2015 Essential hypertension I10 ; Type 2 diabetes mellitus without complication E11.9 ; Vitamin B12 deficiency E53.8 ; Acquired hypothyroidism E03.9 ; Iron deficiency anemia due to chronic blood loss D50.0 and Hyperlipidemia E78.5 [place] [address] [address] 17 Sep, 2015 Essential hypertension I10 ; Vitamin B12 deficiency E53.8 ; Iron deficiency anemia due to chronic blood loss D50.0 ; Type 2 diabetes mellitus without complication E11.9 ; Hyperlipidemia E78.5 and Acquired hypothyroidism E03.9 [facility] [address] [address] Sep, [facility] [address] [address] Sep, [facility] [address] [address] Jul, [facility] [address] [address] Jun, [facility] [address] [address] Jun, [facility] [address] [address] Jun, Hyperlipidemia 272.4 ; Iron deficiency anemia 280.9 ; Hypothyroidism 244.9 ; Diabetes mellitus without mention of complication, type II or unspecified type, not stated as uncontrolled 250.00 and Hypertension 401.9 [facility] [address] [address] Jun, [facility] [address] [address] Jun, [facility] [address] [address] May, Hyperlipidemia 272.4 [facility] [address] [address] May, [facility] [address] [address] May, [facility] [address] [address] Apr, Diabetes mellitus without me ntion of complication, type II or unspecified type, not stated as uncontrolled 250.00 ; Hypothyroidism 244.9 ; Hyperlipidemia 272.4 ; Pain in joint, lower leg 719.46 and RUQ pain 789.01 [facility] [address] [id number] [address] [place] [address] 15 Mar, 2015 Sinusitis 473.9 [facility] [address] [id number] [address] [place] [address] Mar, [facility] [address] [id number] [address] [place] [address] Mar, [facility] [address] [id number] [address] [place] [address] Mar, Hematochezia 578.1 [facility] [address] [id number] [address] [place] [address] February, Sinusitis 473.9 [facility] [address] [id number] [address] [place] [address] February, [facility] [address] [id number] [address] [place] [address] Jan, [facility] [address] [id number] [address] [place] [phone] Jan, [facility] [address] [id number] [address] [place] [address] Dec, [facility] [address] [id number] [address] [place] [address] Dec, [facility] [address] [id number] [address] [place] [address] Dec, [facility] [address] [id number] [address] [place] [address] Dec, [facility] [address] [id number] [address] [place] [address] Dec, [facility] [address] [id number] [address] [place] [address] Dec, [facility] [address] [id number] [address] [place] [address], [place] [address] Dec, [facility] [address] [id number] [address] [place] [address], [place] [address] Dec, [facility] [address] [id number] [address] [place] [address], [place] [address] Dec, [facility] [address] [id number] [address] [place] [address], [place] [id number] Dec, [facility] [address] [id number] [address] [place] [address], [place] [address] Dec, [facility] [address] [id number] [address] [place] [address], [place] [address] Nov, [facility] [address] [id number] [address] [place] [address], [place] [address] Nov, [facility] [address] [id number] [address] [place] [address], [place] [address] Nov, [facility] [address] [id number] [address] [place] [address], [place] [address] Nov, [facility] [address] [id number] [address] [place] [address], [place] [address] Oct, [facility] [address] [id number] [address] [place] [address], [place] [address] Oct, [facility] [address] [id number] [address] [place] [address], [place] [address] Oct, [facility] [address] [id number] [address] [place] [address], [place] [address] Oct, [facility] [address] [id number] [address] [place] [address], [place] [address] Oct, [facility] [address] [id number] [address] [place] [address], [place] [address] Oct, [facility] [address] [id number] [address] [place] [address], [place] [address] Sep, [facility] [address] [id number] [address] [place] [address], [place] [address] Sep, [facility] [address] [id number] [address] [place] [address], [place] [address] Sep, [facility] [address] [id number] [address] [place] [address], [place] [address] Sep, [facility] [address] [id number] [address] [place] [address], [place] [address] Sep, [facility] [address] [id number] [address] [place] [address], [place] [address] Sep, [facility] [facility] [address] [id number] [address] [place] [address], [place] [address] Sep, [facility] [address] [id number] [address] [place] [address], [place] [address] Aug, [facility] [address] [id number] [address] [place] [address], [place] [address] Aug, [facility] [address] [id number] [address] [place] [address], [place] [address] Aug, [facility] [address] [id number] [address] [place] [address], [place] [address] Aug, [facility] [address] [id number] [address] [place] [address], [place] [address] Aug, [facility] [address] [id number] [address] [place] [address], [place] [address] Aug, [facility] [address] [id number] [address] [place] [address], [place] [address] Aug, [facility] [address] [id number] [address] [place] [address], [place] [address] Aug, [facility] [address] [id number] [address] [place] [address], [place] [address] Aug, [facility] [address] [id number] [address] [place] [address], [place] [address] Aug, [facility] [address] [id number] [address] [place] [address], [place] [address] Aug, [facility] [address] [id number] [address] [place] [address], [place] [address] Aug, [facility] [address] [id number] [address] [place] [address], [place] [address] Aug, [facility] [address] [id number] [address] [place] [address], [place] [address] Aug, [facility] [address] [id number] [address] [place] [address], [place] [address] Jul, [facility] [address] [id number] [address] [place] [address], [place] [address] Jul, [facility] [address] [id number] [address] [place] [address], [place] [address] Jul, [facility] [address] [id number] [address] [place] [address], [place] [address] Jul, [facility] [address] [id number] [address] [place] [address], [place] [address] 24 Jun, 2014 [facility] [address] [id number] [address] [place] [address], [place] [address] 24 Jun, 2014 [facility] [address] [id number] [address] [place] [address], [place] [address] 23 Jun, 2013 [facility] [address] [id number] [address] [place] [address], [place] [address] 23 Jun, 2013 [facility] [address] [id number] [address] [place] [address], [place] [address] 19 Jun, 2014 [facility] [address] [id number] [address] [place] [address], [place] [address] 19 Jun, 2013 [facility] [address] [id number] [facility] [place] [address] 11 Jun, 2013 [facility] [address] [id number] [facility] [place] [address] 11 Jun, 2013 [facility] [address] [id number] [facility] [place] [address] Jun, 2013 [facility] [address] [id number] [facility] [place] [address] 11 Jun, 2013 [facility] [address] [id number] [facility] [place] [address] 10 Jun, 2013 [facility] [address] [id number] [address] [place] [address], [place] [address] Jun, 2013 [facility] [address] [id number] [address] [place] [address], [place] [address] Jun, [facility] [address] [id number] [address] [place] [address], [place] [address] Jun, [facility] [address] [id number] [address] [place] [address], [place] [address] May, [facility] [address] [id number] [address] [place] [address], [place] [address] May, [facility] [address] [id number] [address] [place] [address], [place] [address] May, [facility] [address] [id number] [address] [place] [address], [place] [address] May, [facility] [address] [id number] [address] [place] [address], [place] [address] May, [facility] [address] [id number] [address] [place] [address], [place] [address] May, [facility] [address] [id number] [address] [place] [address], [place] [address] Apr, [facility] [address] [id number] [address] [place] [address], [place] [address] Apr, [facility] [address] [id number] [facility] [place] [address] Apr, [facility] [address] [id number] [address] [place] [address], [place] [address] Apr, [facility] [address] [id number] [facility] [place] [address] Apr, [facility] [address] [id number] [address] [place] [address], [place] [address] Apr, [facility] [address] [id number] [address] [place] [address], [place] [address] Apr, [facility] [address] [id number] [address] [place] [address], [place] [address] Apr, [facility] [address] [id number] [address] [place] [address], [place] [address] Apr, [facility] [address] [id number] [address] [place] [address], [place] [address] Apr, [facility] [address] [id number] [address] [place] [address], [place] [address] Apr, [facility] [address] [id number] [address] [place] [address], [place] [address] Mar, [facility] [address] [id number] [address] [place] [address], [place] [address] Mar, [facility] [address] [id number] [address] [place] [address], [place] [address] Mar, [facility] [address] [id number] [address] [place] [address], [place] [address] Mar, [facility] [address] [id number] [address] [place] [address], [place] [address] February, [facility] [address] [id number] [address] [place] [address], [place] [address] February, [facility] [address] [id number] [address] [place] [address], [place] [address] Jan, [facility] [address] [id number] [address] [place] [address], [place] [address] Jan, [facility] [address] [place] [id number] Jan, [facility] [address] [id number] [address] [place] [address], [place] [address] Jan, [facility] [address] [id number] [address] [place] [address], [place] [address] Jan, [facility] [address] [id number] [address] [place] [address], [place] [address] Jan, [facility] [address] [id number] [address] [place] [address], [place] [address] Jan, [facility] [address] [id number] [address] [place] [address], [place] [address] Jan, [facility] [address] [id number] [address] [place] [address], [place] [address] Jan, [facility] [address] [id number] [address] [place] [address], [place] [address] Jan, [facility] [address] [id number] [address] [place] [address], [place] [address] Jan, [facility] [address] [id number] [address] [place] [address], [place] [address] Jan, [facility] [address] [id number] [address] [place] [address], [place] [address] Jan, [facility] [address] [id number] [address] [place] [address], [place] [address] Jan, [facility] [address] [id number] [address] [place] [address], [place] [address] Jan, [facility] [address] [id number] [address] [place] [address], [place] [address] Jan, [facility] [address] [id number] [address] [place] [address], [place] [address] 07 Jan, 2014 [facility] [address] [id number] [address] [place] [address], [place] [address] Dec, [facility] [address] [id number] [address] [place] [address], [place] [address] Dec, [facility] [address] [id number] [address] [place] [address], [place] [address] Dec, [facility] [address] [id number] [address] [place] [address], [place] [address] Dec, [facility] [address] [id number] [address] [place] [address], [place] [address] Dec, [facility] [address] [id number] [address] [place] [address], [place] [address] Dec, [facility] [address] [id number] [address] [place] [address], [place] [address] Dec, [facility] [address] [id number] [address] [place] [address], [place] [address] Nov, [facility] [address] [id number] [address] [place] [address], [place] [address] Nov, [facility] [address] [id number] [address] [place] [address], [place] [address] Nov, [facility] [address] [id number] [address] [place] [address], [place] [address] Nov, [facility] [address] [id number] [address] [place] [address], [place] [address] Nov, [facility] [address] [id number] [address] [place] [address], [place] [address] Nov, [facility] [address] [id number] [address] [place] [address], [place] [address] Nov, [facility] [address] [id number] [address] [place] [address], [place] [address] Oct, [facility] [address] [id number] [address] [place] [address], [place] [address] Oct, [facility] [address] [id number] [address] [place] [address], [place] [address] Sep, [facility] [address] [id number] [address] [place] [address], [place] [address] Sep, [facility] [address] [id number] [address] [place] [address], [place] [address] Sep, [facility] [address] [id number] [address] [place] [address], [place] [address] Sep, [facility] [address] [id number] [address] [place] [address], [place] [address] Sep, [facility] [address] [id number] [address] [place] [address], [place] [address] Sep, [facility] [address] [id number] [address] [place] [address], [place] [address] Sep, [facility] [address] [id number] [address] [place] [address], [place] [address] Sep, [facility] [address] [id number] [address] [place] [address], [place] [address] Sep, [facility] [address] [id number] [address] [place] [address], [place] [address] Sep, [facility] [address] [id number] [address] [place] [address], [place] [address] 30 Aug, 2013 [facility] [address] [id number] [address] [place] [address], [place] [address] Aug, [facility] [address] [id number] [address] [place] [address], [place] [address] Aug, [facility] [address] [id number] [address] [place] [address], [place] [address] 15 Aug, 2013 [facility] [address] [id number] [address] [place] [address] Aug, [facility] [address] [facility] [id number] [address] [place] [address] Jul, [facility] [address] [facility] [id number] [address] [place] [address] Jul, [facility] [address] [facility] [id number] [address] [place] [id number] Jul, [facility] [address] [facility] [id number] [address] [place] [id number] Jul, IMMUNIZATIONS No Known Immunizations SOCIAL HISTORY Never Assessed REASON FOR VISIT Medication question PLAN OF CARE VITAL SIGNS MEDICATIONS Unknown [...]
--- OUTSIDE RECORDS SUMMARY | 2020-03-16 12:04 | XMS REPORT ---
Author Author Swathi DORAN [facility] Address [address] [place] [address] Care Team Providers Care Ragman Name Role Phone BRETNON DORAN Unavailable PROBLEMS Type Condition ICD9-CM Code [id number] Code Onset Dates Condition S tatus SNOMED Code Problem Anxiety F41.9 Active 19491797 Problem Chronic tension-type headache, intractable G44.221 Active 146391860 Problem Right upper quadrant pain R10.11 Acti ve 63254996 Problem Vitamin D deficiency E55.9 Active 18216811 Problem Sensorineural hearing loss of right ear H90.41 Active 59599018 Problem BMI 50.0-59.9, adult Z68.43 Active 244106494 Problem Fatty liver K76.0 Active 48341689 7 Problem Frequent falls R29.6 Active 86223 2002 Problem Crohn's disease of both small and large intestin e with complication K50.819 Active 44471762 Problem Type 2 diabetes mellitus with other specified complication E11.69 Active 741012657429 Problem Hyperlipidemia, unspecified E78.5 Ac tive 34022356 Problem MACHUCA (nonalcoholic steatohepatitis) K75.81 Active 975009543 Problem Iron deficiency anemia due to chronic blood loss D 50.0 Active 26860989 Problem Periodic limb movement sleep disorder G47.61 Active 272418822 Problem Obstructive sleep apnea on CPAP G47.33 Active 95108870 Problem Essential hypertension I10 Active 23379573 Problem Hyperlipidemia E78.5 Active 35850 004 Problem Chronic diarrhea K52.9 Active 236 282987 Problem Acquired hypothyroidism E03.9 Active 044129161 Problem Vitamin B12 deficiency E53.8 Active 714115977 Problem Major depressive disorder, recurrent episode, moderate F33.1 Active 771734470 ALLERGIES No Information ENCOUNTERS Encounter Location Date Diagnosis [facility] [address] [facility] [id number] [address] [address] Jul, [facility] [address] [place] [phone] Jun, Cough R05 and BMI 50.0-59.9, adult Z68.43 [facility] [address] [place] [id number] [address] [place] [phone] Jun, [facility] [address] [address] May, Iron deficiency anemia due t o chronic blood loss D50.0 ; Chronic diarrhea K52.9 ; Essential hypertension I10 ; Type 2 diabetes mellitus with other specified complication E11.69 ; Vitamin D deficiency E55.9 ; Colon stricture K56.699 ; Vitamin B12 deficiency E53.8 ; Hyperlipidemia E78.5 and BMI 50.0-59.9, adult Z68.43 [facility] [address] [address] May, [facility] [address] [address] Apr, Nonhealing wound of heel S91 .309A and Body mass index (BMI) of 50- 59.9 in adult Z68.43 [facility] [address] [place] [id number] [address] [place] [phone] Mar, [facility] [address] [place] [id number] [address] [place] [phone] Mar, BMI 50.0-59.9, adult Z68.43 ; Flank pain R10.9 and Weight loss counseling, encounter for Z71.3 [facility] [address] [place] [id number] [address] [place] [phone] February, [place] [address] [address] Jan, [facility] [address] [place] [id number] [address] [place] [phone] Jan, [facility] [address] [place] [address] Jan, Diarrhea due to staphylococc us A04.8 and Diarrhea, unspecified type R19.7 [place] [address] [address] Jan, Acquired hypothyroidism E03. 9 ; Type 2 diabetes mellitus with other specified complication E11.69 ; Hyperlipidemia E78.5 ; Essential hypertension I10 ; Major depressive disorder, recurrent episode, moderate F33.1 and Vitamin D deficiency E55.9 [place] [address] [address] Jan, Type 2 diabetes mellitus wit h other specified complication E11.69 ; Hyperlipidemia E78.5 ; Essential hypertension I10 ; Acquired hypothyroidism E03.9 ; Major depressive disorder, recurrent episode, moderate F33.1 ; Vitamin D deficiency E55.9 ; Sinus congestion R09.81 and BMI 50.0-59.9, adult Z68.43 [place] [address] [address] Dec, [place] [address] [address] Sep, Encounter for immunization Z 23 [place] [address] [address] Sep, [place] [address] [address] Sep, Vitamin B12 deficiency E53.8 [place] [address] [address] Aug, [place] [address] [address] Aug, BMI 60.0-69.9, adult Z68.44 and Acute non-recurrent maxillary sinusitis J01.00 [place] [address] [address] Aug, [place] [address] [address] Aug, Medicare annual wellness vis it, initial Z00.00 ; Screening for breast cancer Z12.31 ; BMI 40.0-44.9, adult Z68.41 and Acquired hypothyroidism E03.9 [place] [id number] [place] [id number] [address] [place] [phone] Jul, Actinic keratosis L57.0 [place] [address] [address] Jul, Actinic keratosis L57.0 [place] [address] [address] Jul, Type 2 diabetes mellitus wit h other specified complication E11.69 ; Actinic keratosis L57.0 and Hypothyroidism, unspecified E03.9 [place] [address] [address] Jul, [place] [address] [address] Jul, [place] [address] [address] Jul, Vitamin B12 deficiency E53.8 [place] [address] [place] [id number] [place] [address] Jun, Acquired hypothyroidism E03. 9 and Chronic tension-type headache, intractable G44.221 [place] [address] [address] Jun, Back muscle spasm M62.830 an d BMI 50.0-59.9, adult Z68.43 [place] [address] [address] Jun, Vitamin B12 deficiency E53.8 [place] [address] [place] [id number] [place] [address] Jun, Crohn's disease of both smal l and large intestine with complication K50.819 [facility] [address] [facility] [id number] [address] [place] [address] Jun, Crohn's disease of both smal l and large intestine with complication K50.819 [facility] [address] [facility] [id number] [address] [place] [address] May, Hyperlipidemia E78.5 ; Anxie ty F41.9 and Essential hypertension I10 [place] [address] [facility] [id number] [address] [place] [address] May, [place] [address] [place] [id number] [address] [place] [address] May, Encounter for immunization Z 23 and Vitamin B12 deficiency E53.8 [place] [address] [facility] [id number] [address] [place] [phone] May, [place] [address] [place] [id number] [address] [place] [phone] Apr, [place] [address] [facility] [id number] [address] [place] [address] Apr, [place] [address] [place] [id number] [address] [place] [address] Apr, Crohn's disease of both smal l and large intestine with complication K50.819 [place] [id number] [facility] [id number] [address] [place] [phone] Apr, Vitamin B12 deficiency E53.8 [facility] [address] [facility] [id number] [address] [place] [phone] Apr, Crohn's disease of both smal l and large intestine with complication K50.819 and Acute pain of right shoulder M25.511 [place] [address] [place] [id number] [address] [place] [address] Mar, Type 2 diabetes mellitus wit hout complication E11.9 ; Frequent falls R29.6 and Other chest pain R07.89 [place] [address] [place] [id number] [address] [place] [id number] 14 Mar, 2017 [facility] [address] [facility] [id number] [address] [place] [phone] Mar, [facility] [address] [place] [id number] [address] [place] [phone] Mar, Type 2 diabetes mellitus wit hout complication E11.9 and Blurry vision, bilateral H53.8 [place] [address] [place] [id number] [address] [place] [phone] Mar, Vitamin B12 deficiency E53.8 [facility] [address] [facility] [id number] [address] [place] [phone] Mar, Crohn's disease of both smal l and large intestine with complication K50.819 [place] [address] [place] [address] February, Vitamin B12 deficiency E53.8 [place] [address] [place] [address] Jan, Crohn's disease of both smal l and large intestine with complication K50.819 [place] [address] [place] [address] Jan, Crohn's disease of both smal l and large intestine with complication K50.819 [facility] [address] [place] [id number] [address] [place] [phone] Jan, Dark brown-colored urine R82 .99 and Acute suppurative otitis media of right ear without spontaneous rupture of tympanic membrane, recurrence not specified H66.001 [place] [address] [place] [id number] [address] [place] [phone] Jan, Encounter for immunization Z 23 [facility] [address] [place] [id number] [address] [place] [id number] Dec, Crohn's disease of both smal l and large intestine with complication K50.819 and Eustachian tube dysfunction, right H69.81 [place] [address] [address] Dec, [place] [address] [address] Dec, Contusion of right knee, ini tial encounter S80.01XA [place] [address] [address] Dec, [place] [address] [address] Dec, Acute pain of right knee M25 .[address] [address] Dec, Iron deficiency anemia due t o chronic blood loss D50.[address] [address] Dec, Hyperlipidemia E78.5 ; Type 2 diabetes mellitus without complication E11.9 ; Vitamin B12 deficiency E53.8 ; Essential hypertension I10 ; Obstructive sleep apnea on CPAP G47.33 and Periodic limb movement sleep disorder G47.[address] [address] Nov, Type 2 diabetes mellitus wit hout complication E11.9 ; Vitamin B12 deficiency E53.8 ; Hyperlipidemia E78.5 ; Essential hypertension I10 ; Obstructive sleep apnea on CPAP G47.33 ; Periodic limb movement sleep disorder G47.61 ; Anxiety F41.9 ; Acquired hypothyroidism E03.9 and Chronic tension-type headache, intractable G44.221 [place] [address] [place] [address] Nov, Crohn's disease of both smal l and large intestine with complication K50.819 [place] [address] [place] [id number] [address] [place] [address] Nov, Vitamin B12 deficiency E53.8 [place] [address] [address] Oct, [facility] [address] [id number] [address] [place] [address] Oct, Vitamin B12 deficiency E53.8 [facility] [address] [id number] [address] [place] [phone] Sep, [facility] [address] [id number] [address] [place] [phone] Sep, Vitamin B12 deficiency E53.8 [facility] [address] [id number] [address] [place] [phone] Aug, [facility] [address] [id number] [address] [place] [phone] Aug, Vitamin B12 deficiency E53.8 [facility] [address] [id number] [address] [place] [phone] Aug, [facility] [address] [id number] [address] [place] [address] Jul, Elevated ALT measurement R74 .0 [facility] [address] [id number] [address] [place] [phone] Jul, Hematuria R31.9 ; Acute righ t-sided thoracic back pain M54.6 ; Major depressive disorder, recurrent episode, moderate F33.1 and Elevated ALT measurement R74.0 [facility] [address] [id number] [address] [place] [address] Jul, [facility] [address] [id number] [address] [place] [phone] Jul, Elevated ALT measurement R74 .0 [facility] [address] [facility] [id number] [address] [place] [phone] Jul, Iron deficiency anemia due t o chronic blood loss D50.0 [facility] [address] [id number] [address] [place] [id number] 14 Jul, 2016 Type 2 diabetes mellitus wit hout complication E11.9 ; Acquired hypothyroidism E03.9 ; Iron deficiency anemia due to chronic blood loss D50.0 ; Hyperlipidemia E78.5 and Essential hypertension I10 [facility] [address] [facility] [id number] [address] [place] [address] Jun, [facility] [address] [facility] [id number] [address] [place] [phone] 20 Jun, 2016 Vitamin B12 deficiency E53.8 [place] [address] [facility] [id number] [address] [place] [id number] 16 Jun, 2016 Type 2 diabetes mellitus wit hout complication E11.9 ; Acquired hypothyroidism E03.9 ; Iron deficiency anemia due to chronic blood loss D50.0 ; Hyperlipidemia E78.5 ; Essential hypertension I10 ; Chronic tension-type headache, intractable G44.221 ; Pulsatile tinnitus, bilateral H93.13 ; Obstructive sleep apnea on CPAP G47.33 and Major depressive disorder, recurrent episode, moderate F33.1 [place] [address] [facility] [id number] [address] [place] [address] May, Vitamin B12 deficiency E53.8 [place] [address] [facility] [id number] [address] [place] [address] May, [place] [address] [facility] [id number] [address] [place] [id number] Apr, Vitamin B12 deficiency E53.8 [place] [address] [facility] [id number] [address] [place] [id number] Apr, [place] [address] [facility] [id number] [address] [place] [phone] Mar, Chronic tension-type headach e, intractable G44.221 and Major depressive disorder, recurrent episode, moderate F33.1 [place] [address] [facility] [id number] [address] [place] [id number] 14 Mar, 2016 Vitamin B12 deficiency E53.8 [facility] [address] [facility] [id number] [address] [place] [phone] February, [facility] [address] [facility] [id number] [address] [place] [address] February, Vitamin B12 deficiency E53.8 [facility] [address] [facility] [id number] [address] [place] [address] February, [facility] [address] [place] [id number] [address] [place] [phone] 27 Jan, 2016 Dysuria R30.0 [facility] [address] [place] [id number] [address] [place] [address] Jan, Type 2 diabetes mellitus wit hout complication E11.9 and Essential hypertension I10 [facility] [address] [facility] [id number] [address] [place] [id number] 15 Jan, 2016 Chronic diarrhea K52.9 [facility] [address] [facility] [id number] [address] [place] [id number] 13 Jan, 2016 [facility] [address] [place] [id number] [place] [address] Jan, Chronic diarrhea K52.9 [facility] [address] [facility] [id number] [address] [place] [address] Jan, [facility] [address] [facility] [id number] [address] [place] [id number] 12 Jan, 2016 Dysuria R30.0 [facility] [address] [place] [id number] [place] [id number] 07 Jan, 2016 Vitamin B12 deficiency E53.8 [facility] [address] [place] [id number] [address] [place] [id number] 07 Jan, 2016 Dysuria R30.0 and Iron defic iency anemia due to chronic blood loss D50.0 [facility] [address] [place] [id number] [address] [place] [address] 05 Jan, 2016 Dysuria R30.0 [facility] [address] [place] [id number] [address] [place] [phone] 04 Jan, 2016 [facility] [address] [place] [id number] [place] [phone] 15 Dec, 2015 [facility] [address] [facility] [id number] [address] [place] [phone] 11 Dec, 2015 Iron deficiency anemia due t o chronic blood loss D50.0 [facility] [address] [facility] [id number] [address] [place] [id number] 10 Dec, 2015 Dysuria R30.0 ; Fatigue R53. 83 ; Hyperlipidemia E78.5 and Diarrhea R19.7 [facility] [address] [facility] [id number] [address] [place] [phone] Dec, [place] [address] [facility] [id number] [address] [place] [phone] Dec, [place] [address] [facility] [id number] [address] [place] [id number] 10 Nov, 2015 Vitamin B12 deficiency E53.8 [facility] [address] [place] [id number] [place] [phone] Oct, Vitamin B12 deficiency E53.8 [place] [address] [facility] [id number] [address] [place] [phone] Oct, [facility] [address] [facility] [id number] [address] [place] [phone] Oct, Headache R51 [place] [address] [facility] [id number] [address] [place] [address] Oct, Essential hypertension I10 ; Type 2 diabetes mellitus without complication E11.9 ; Vitamin B12 deficiency E53.8 ; Acquired hypothyroidism E03.9 ; Iron deficiency anemia due to chronic blood loss D50.0 and Hyperlipidemia E78.5 [place] [address] [facility] [id number] [address] [place] [phone] Sep, Essential hypertension I10 ; Vitamin B12 deficiency E53.8 ; Iron deficiency anemia due to chronic blood loss D50.0 ; Type 2 diabetes mellitus without complication E11.9 ; Hyperlipidemia E78.5 and Acquired hypothyroidism E03.9 [facility] [address] [facility] [id number] [address] [place] [phone] Sep, [facility] [address] [facility] [id number] [address] [place] [phone] Sep, [facility] [address] [facility] [id number] [address] [place] [phone] Jul, [facility] [address] [facility] [id number] [address] [place] [phone] Jun, [facility] [address] [facility] [id number] [address] [place] [phone] Jun, [facility] [address] [facility] [id number] [address] [place] [phone] Jun, Hyperlipidemia 272.4 ; Iron deficiency anemia 280.9 ; Hypothyroidism 244.9 ; Diabetes mellitus without mention of complication, type II or unspecified type, not stated as uncontrolled 250.00 and Hypertension 401.9 [facility] [address] [facility] [id number] [address] [place] [address] Jun, [facility] [address] [facility] [id number] [address] [place] [phone] Jun, [facility] [address] [place] [id number] [address] [place] [address] May, Hyperlipidemia 272.4 [facility] [address] [facility] [id number] [address] [place] [phone] May, [facility] [address] [facility] [id number] [address] [place] [address] May, [facility] [address] [facility] [id number] [address] [place] [address] Apr, Diabetes mellitus without me ntion of complication, type II or unspecified type, not stated as uncontrolled 250.00 ; Hypothyroidism 244.9 ; Hyperlipidemia 272.4 ; Pain in joint, lower leg 719.46 and RUQ pain 789.01 [facility] [address] [facility] [id number] [address] [place] [address] Mar, Sinusitis 473.9 [facility] [address] [id number] [address] [place] [address], [place] [address] 04 Mar, 2015 [facility] [address] [id number] [address] [place] [address], [place] [address] Mar, [facility] [address] [id number] [address] [place] [address], [place] [address] Mar, Hematochezia 578.1 [facility] [address] [id number] [address] [place] [address], [place] [phone] February, Sinusitis 473.9 [facility] [address] [id number] [address] [place] [address], [place] [phone] February, [facility] [address] [id number] [address] [place] [address], [place] [phone] Jan, [facility] [address] [id number] [address] [place] [address], [place] [address] Jan, [facility] [address] [id number] [address] [place] [phone] Dec, [facility] [address] [id number] [address] [place] [address], [place] [phone] 24 Dec, 2014 [facility] [address] [id number] [address] [place] [phone] Dec, [facility] [address] [id number] [address] [place] [address], [place] [address] Dec, [facility] [address] [id number] [address] [place] [phone] 24 Dec, 2014 [facility] [address] [id number] [address] [place] [address], [place] [id number] 24 Dec, 2014 [facility] [address] [id number] [address] [place] [address], [place] [address] 23 Dec, 2014 [facility] [address] [id number] [address] [place] [id number] Dec, [facility] [address] [id number] [address] [place] [address], [place] [address] Dec, [facility] [address] [id number] [address] [place] [address], [place] [phone] Dec, [facility] [address] [id number] [address] [place] [address], [place] [id number] Dec, [facility] [address] [id number] [address] [place] [address], [place] [id number] Nov, [facility] [address] [id number] [address] [place] [address], [place] [id number] Nov, [facility] [address] [id number] [address] [place] [address], [place] [id number] Nov, [facility] [address] [id number] [address] [place] [address], [place] [id number] Nov, [facility] [address] [id number] [address] [place] [address], [place] [id number] Oct, [facility] [address] [id number] [address] [place] [address], [place] [id number] Oct, [facility] [address] [id number] [address] [place] [address], [place] [address] Oct, [facility] [address] [id number] [address] [place] [address], [place] [address] Oct, [facility] [place] [facility] [address] [id number] [address] [place] [address], [place] [address] Oct, [facility] [place] [facility] [address] [id number] [address] [place] [address], [place] [address] Oct, [facility] [place] [facility] [address] [id number] [address] [place] [address], [place] [address] Sep, [facility] [place] [facility] [address] [id number] [address] [place] [address], [place] [address] Sep, [facility] [place] [facility] [address] [id number] [address] [place] [address], [place] [address] Sep, [facility] [address] [id number] [address] [place] [address], [place] [address] Sep, [facility] [address] [id number] [address] [place] [address], [place] [address] Sep, [facility] [address] [id number] [address] [place] [address], [place] [address] Sep, [facility] [place] [facility] [address] [id number] [address] [place] [address], [place] [address] Sep, [facility] [address] [id number] [address] [place] [address], [place] [address] Aug, [facility] [address] [id number] [address] [place] [address], [place] [address] Aug, [facility] [address] [id number] [address] [place] [address], [place] [address] Aug, [facility] [address] [id number] [address] [place] [address], [place] [address] Aug, [facility] [address] [id number] [address] [place] [address], [place] [address] Aug, [facility] [address] [id number] [address] [place] [address], [place] [address] Aug, [facility] [address] [id number] [address] [place] [address], [place] [address] Aug, [facility] [place] [facility] [address] [id number] [address] [place] [address], [place] [address] Aug, [facility] [place] [facility] [address] [id number] [address] [place] [address], [place] [address] 17 Aug, 2014 [facility] [place] [facility] [address] [id number] [address] [place] [address], [place] [address] 17 Aug, 2014 [facility] [place] [facility] [address] [id number] [address] [place] [address], [place] [address] Aug, [facility] [place] [facility] [address] [id number] [address] [place] [address], [place] [address] 13 Aug, 2014 [facility] [place] [facility] [address] [id number] [address] [place] [address], [place] [address] Aug, [facility] [place] [facility] [address] [id number] [address] [place] [address], [place] [address] Aug, [facility] [place] [facility] [address] [id number] [address] [place] [address], [place] [address] Jul, [facility] [place] [facility] [address] [id number] [address] [place] [address], [place] [address] Jul, [facility] [place] [facility] [address] [id number] [address] [place] [address], [place] [address] Jul, [facility] [place] [facility] [address] [id number] [address] [place] [address], [place] [address] Jul, [facility] [place] [facility] [address] [id number] [address] [place] [address], [place] [address] 24 Jun, 2013 [facility] [place] [facility] [address] [id number] [address] [place] [address], [place] [address] 24 Jun, 2013 [facility] [place] [facility] [address] [id number] [address] [place] [address], [place] [address] 23 Jun, 2013 [facility] [place] [facility] [address] [id number] [address] [place] [address], [place] [address] 23 Jun, 2013 [facility] [place] [facility] [address] [id number] [address] [place] [address], [place] [address] 19 Jun, 2013 [facility] [place] [facility] [address] [id number] [address] [place] [address], [place] [address] 19 Jun, 2013 [facility] [place] [facility] [address] [id number] [address] [place] [address], [place] [address] 11 Jun, 2013 [facility] [place] [facility] [address] [id number] [address] [place] [address], [place] [address] 11 Jun, 2013 [facility] [place] [facility] [address] [id number] [address] [place] [address], [place] [address] Jun, [facility] [place] [facility] [address] [id number] [address] [address] Jun, [facility] [place] [facility] [address] [id number] [address] [place] [address], [place] [address] Jun, [facility] [place] [facility] [address] [id number] [address] [place] [address], [place] [address] Jun, [facility] [place] [facility] [address] [id number] [address] [place] [address], [place] [address] Jun, [facility] [place] [facility] [address] [id number] [address] [place] [address], [place] [address] Jun, [facility] [place] [facility] [address] [id number] [address] [place] [address], [place] [address] May, [facility] [place] [facility] [address] [id number] [address] [place] [address], [place] [address] May, [facility] [place] [facility] [address] [id number] [address] [place] [address], [place] [address] May, [facility] [place] [facility] [address] [id number] [address] [place] [address], [place] [address] May, [facility] [place] [facility] [address] [id number] [address] [place] [address], [place] [address] May, [facility] [place] [facility] [address] [id number] [address] [place] [address], [place] [address] May, [facility] [place] [facility] [address] [id number] [address] [place] [address], [place] [address] Apr, [facility] [place] [facility] [address] [id number] [address] [place] [address], [place] [address] Apr, [facility] [place] [facility] [address] [id number] [address] [place] [address], [place] [address] Apr, [facility] [place] [facility] [address] [id number] [address] [place] [address], [place] [address] Apr, [facility] [place] [facility] [address] [id number] [address] [address] Apr, [facility] [address] [id number] [address] [place] [address], [place] [address] Apr, [facility] [place] [facility] [address] [id number] [address] [place] [address], [place] [address] Apr, [facility] [place] [facility] [address] [id number] [address] [place] [address], [place] [address] Apr, [facility] [address] [id number] [address] [place] [address], [place] [address] Apr, [facility] [address] [id number] [address] [place] [address], [place] [address] Apr, [facility] [place] [facility] [address] [id number] [address] [place] [address], [place] [address] Apr, [facility] [place] [facility] [address] [id number] [address] [place] [address], [place] [address] Mar, [facility] [place] [facility] [address] [id number] [address] [place] [address], [place] [address] Mar, [facility] [address] [id number] [address] [place] [address], [place] [address] Mar, [facility] [place] [facility] [address] [id number] [address] [place] [address], [place] [address] Mar, [facility] [place] [facility] [address] [id number] [address] [place] [address], [place] [address] February, [facility] [place] [facility] [address] [id number] [address] [place] [address], [place] [address] February, [facility] [address] [id number] [address] [place] [address], [place] [address] Jan, [facility] [address] [id number] [address] [place] [address], [place] [address] Jan, [facility] [address] [place] [id number] Jan, [facility] [place] [facility] [address] [id number] [facility] [address] Jan, [facility] [address] [id number] [address] [address] Jan, [facility] [address] [id number] [address] [place] [address], [place] [address] Jan, [facility] [address] [id number] [address] [place] [address], [place] [address] Jan, [facility] [address] [id number] [address] [place] [address], [place] [address] Jan, [facility] [address] [id number] [address] [place] [address], [place] [address] Jan, [facility] [address] [id number] [address] [place] [address], [place] [address] Jan, [facility] [address] [id number] [address] [place] [address], [place] [address] Jan, [facility] [address] [id number] [address] [place] [address], [place] [address] Jan, [facility] [address] [id number] [address] [place] [address], [place] [address] Jan, [facility] [place] [facility] [address] [id number] [address] [place] [address], [place] [address] Jan, [facility] [address] [id number] [address] [place] [address], [place] [address] Jan, [facility] [address] [id number] [address] [place] [address], [place] [address] Jan, [facility] [address] [id number] [address] [place] [address], [place] [address] Jan, [facility] [address] [id number] [address] [place] [address], [place] [address] Dec, [facility] [address] [id number] [address] [place] [address], [place] [address] Dec, [facility] [address] [id number] [address] [address] Dec, [facility] [place] [facility] [address] [id number] [address] [place] [address], [place] [address] Dec, [facility] [address] [id number] [address] [place] [address], [place] [address] Dec, [facility] [place] [facility] [address] [id number] [address] [place] [address], [place] [address] Dec, [facility] [address] [id number] [address] [place] [address], [place] [address] Dec, [facility] [place] [facility] [address] [id number] [address] [place] [address], [place] [address] Nov, [facility] [place] [facility] [address] [id number] [address] [place] [address], [place] [address] Nov, [facility] [place] [facility] [address] [id number] [address] [place] [address], [place] [address] Nov, [facility] [place] [facility] [address] [id number] [address] [place] [address], [place] [address] Nov, [facility] [place] [facility] [address] [id number] [address] [place] [address], [place] [address] Nov, [facility] [place] [facility] [address] [id number] [address] [place] [address], [place] [address] Nov, [facility] [place] [facility] [address] [id number] [address] [place] [address], [place] [address] Nov, [facility] [place] [facility] [address] [id number] [address] [place] [address], [place] [address] Oct, [facility] [place] [facility] [address] [id number] [address] [place] [address], [place] [address] Oct, [facility] [place] [facility] [address] [id number] [address] [place] [address], [place] [address] Sep, [facility] [place] [facility] [address] [id number] [address] [place] [address], [place] [address] Sep, [facility] [address] [id number] [address] [place] [address], [place] [address] Sep, [facility] [address] [id number] [address] [place] [address], [place] [address] Sep, [facility] [address] [id number] [address] [place] [address], [place] [address] Sep, [facility] [address] [id number] [address] [place] [address], [place] [address] Sep, [facility] [address] [id number] [address] [place] [address], [place] [address] Sep, [facility] [address] [id number] [address] [place] [address], [place] [address] Sep, [facility] [address] [id number] [address] [place] [address], [place] [address] Sep, [facility] [place] [facility] [address] [id number] [address] [place] [address], [place] [address] Sep, [facility] [address] [id number] [address] [place] [address], [place] [address] Aug, [facility] [place] [facility] [address] [id number] [address] [place] [address], [place] [address] Aug, [facility] [address] [id number] [address] [place] [address], [place] [address] Aug, [facility] [place] [facility] [address] [id number] [address] [place] [address], [place] [address] Aug, [facility] [address] [id number] [address] [place] [address], [place] [address] Aug, [facility] [address] [id number] [address] [place] [address], [place] [address] Jul, [facility] [address] [id number] [address] [place] [address], [place] [address] Jul, [facility] [address] [facility] [id number] [address] [place] [id number] Jul, [facility] [address] [facility] [id number] [address] [place] [address] Jul, IMMUNIZATIONS No Known Immunizations SOCIAL HISTORY [...]
--- OUTSIDE RECORDS SUMMARY | 2020-03-16 12:04 | XMS REPORT ---
Author Author Swathi DORAN Organization [facility] Address [address] [place] [address] Care Team Providers Care Advertising Solicitor Name Role Phone BRENTON DORAN Unavailable PROBLEMS Type Condition ICD9-CM Code [id number] Code Onset Dates Condition S tatus SNOMED Code Problem Anxiety F41.9 Active 58118666 Problem Chronic tension-type headache, intractable G44.221 Active 140637668 Problem Right upper quadrant pain R10.11 Acti ve 25851530 Problem Vitamin D deficiency E55.9 Active 01620160 Problem Sensorineural hearing loss of right ear H90.41 Active 31851809 Problem BMI 50.0-59.9, adult Z68.43 Active 048474000 Problem Fatty liver K76.0 Active 15109793 7 Problem Frequent falls R29.6 Active 59657 2001 Problem Crohn's disease of both small and large intestin e with complication K50.819 Active 65177879 Problem Type 2 diabetes mellitus with other specified complication E11.69 Active 162048671317 Problem Hyperlipidemia, unspecified E78.5 Ac tive 70162967 Problem MACHUCA (nonalcoholic steatohepatitis) K75.81 Active 470610567 Problem Iron deficiency anemia due to chronic blood loss D 50.0 Active 51132352 Problem Periodic limb movement sleep disorder G47.61 Active 379692490 Problem Obstructive sleep apnea on CPAP G47.33 Active 29376487 Problem Essential hypertension I10 Active 78350932 Problem Hyperlipidemia E78.5 Active 17523 004 Problem Chronic diarrhea K52.9 Active 236 400146 Problem Acquired hypothyroidism E03.9 Active 531276020 Problem Vitamin B12 deficiency E53.8 Active 252346645 Problem Major depressive disorder, recurrent episode, moderate F33.1 Active 512457406 ALLERGIES Substance Reaction Event Type Date Status Penicillin V Potassium Unknown Drug Allergy Apr, Activ e Niacin Unknown Drug Allergy Apr, Active Morphine Sulfate Unknown Drug Allergy Apr, Active Lipitor abdominal pain Drug Allergy Apr, Active Dilaudid Unknown Drug Allergy Apr, Active Bactrim Unknown Drug Allergy Apr, Active Amoxicillin Unknown Drug Allergy Apr, Active Adhesive Unknown Non Drug Allergy Apr, Active Sulfamethoxazole-Trimethoprim Unknown Drug Allergy Apr, 8 Active Tetanus&diphtheria Toxoid Unknown Non Drug Allergy Apr, 8 Active Influenza Virus Vacc,specific Got flu and was told to never get the vaccine again Non Drug Allergy Apr, Active ENCOUNTERS Encounter Location Date Diagnosis [facility] [address] [address] Jul, [facility] [address] [address] Jun, Cough R05 and BMI 50.0-59.9, adult Z68.43 [place] [address] [address] Jun, [place] [address] [address] May, Iron deficiency anemia due t o chronic blood loss D50.0 ; Chronic diarrhea K52.9 ; Essential hypertension I10 ; Type 2 diabetes mellitus with other specified complication E11.69 ; Vitamin D deficiency E55.9 ; Colon stricture K56.699 ; Vitamin B12 deficiency E53.8 ; Hyperlipidemia E78.5 and BMI 50.0-59.9, adult Z68.43 [place] [address] [address] May, [place] [address] [address] Apr, Nonhealing wound of heel S91 .309A and Body mass index (BMI) of 50- 59.9 in adult Z68.43 [place] [address] [address] Mar, [place] [address] [address] Mar, BMI 50.0-59.9, adult Z68.43 ; Flank pain R10.9 and Weight loss counseling, encounter for Z71.3 [place] [address] [address] February, [facility] [address] [place] [id number] [place] [address] Jan, [facility] [address] [address] Jan, [facility] [address] [place] [id number] [place] [address] Jan, Diarrhea due to staphylococc us A04.8 and Diarrhea, unspecified type R19.7 [place] [address] [place] [id number] [place] [phone] Jan, Acquired hypothyroidism E03. 9 ; Type 2 diabetes mellitus with other specified complication E11.69 ; Hyperlipidemia E78.5 ; Essential hypertension I10 ; Major depressive disorder, recurrent episode, moderate F33.1 and Vitamin D deficiency E55.9 [place] [address] [place] [id number] [place] [address] Jan, Type 2 diabetes mellitus wit h other specified complication E11.69 ; Hyperlipidemia E78.5 ; Essential hypertension I10 ; Acquired hypothyroidism E03.9 ; Major depressive disorder, recurrent episode, moderate F33.1 ; Vitamin D deficiency E55.9 ; Sinus congestion R09.81 and BMI 50.0-59.9, adult Z68.43 [place] [address] [place] [id number] [place] [address] Dec, [place] [address] [address] Sep, Encounter for immunization Z 23 [place] [address] [place] [id number] [place] [phone] Sep, [place] [address] [place] [id number] [address] [place] [address] Sep, Vitamin B12 deficiency E53.8 [facility] [address] [facility] [id number] [address] [place] [phone] Aug, [facility] [address] [facility] [id number] [address] [place] [address] Aug, BMI 60.0-69.9, adult Z68.44 and Acute non-recurrent maxillary sinusitis J01.00 [facility] [address] [place] [id number] [place] [address] Aug, [place] [address] [facility] [id number] [address] [place] [address] Aug, Medicare annual wellness vis it, initial Z00.00 ; Screening for breast cancer Z12.31 ; BMI 40.0-44.9, adult Z68.41 and Acquired hypothyroidism E03.9 [place] [address] [place] [id number] [place] [phone] Jul, Actinic keratosis L57.0 [place] [address] [facility] [id number] [address] [place] [address] Jul, Actinic keratosis L57.0 [place] [address] [place] [id number] [place] [address] Jul, Type 2 diabetes mellitus wit h other specified complication E11.69 ; Actinic keratosis L57.0 and Hypothyroidism, unspecified E03.9 [place] [address] [facility] [id number] [address] [place] [address] Jul, [place] [address] [facility] [id number] [address] [place] [address] Jul, [place] [address] [place] [id number] [place] [address] Jul, Vitamin B12 deficiency E53.8 [facility] [address] [facility] [id number] [address] [place] [address] Jun, Acquired hypothyroidism E03. 9 and Chronic tension-type headache, intractable G44.221 [place] [address] [facility] [id number] [address] [place] [address] Jun, Back muscle spasm M62.830 an d BMI 50.0-59.9, adult Z68.43 [facility] [address] [facility] [id number] [address] [place] [address] Jun, Vitamin B12 deficiency E53.8 [place] [address] [facility] [id number] [address] [place] [address] Jun, Crohn's disease of both smal l and large intestine with complication K50.819 [place] [address] [facility] [id number] [address] [place] [address] Jun, Crohn's disease of both smal l and large intestine with complication K50.819 [place] [address] [place] [id number] [place] [address] May, Hyperlipidemia E78.5 ; Anxie ty F41.9 and Essential hypertension I10 [place] [address] [facility] [id number] [address] [place] [phone] May, [place] [address] [place] [id number] [place] [phone] May, Encounter for immunization Z 23 and Vitamin B12 deficiency E53.8 [place] [address] [facility] [id number] [address] [place] [address] May, [place] [address] [facility] [id number] [address] [place] [phone] Apr, [place] [address] [facility] [id number] [address] [place] [address] Apr, [place] [address] [facility] [id number] [address] [place] [address] Apr, Crohn's disease of both smal l and large intestine with complication K50.819 [place] [address] [facility] [id number] [address] [place] [address] Apr, Vitamin B12 deficiency E53.8 [facility] [address] [facility] [id number] [address] [place] [address] Apr, Crohn's disease of both smal l and large intestine with complication K50.819 and Acute pain of right shoulder M25.511 [place] [id number] [facility] [id number] [address] [place] [address] Mar, Type 2 diabetes mellitus wit hout complication E11.9 ; Frequent falls R29.6 and Other chest pain R07.89 [place] [address] [facility] [id number] [address] [place] [phone] 14 Mar, 2017 [place] [address] [facility] [id number] [address] [place] [address] Mar, [place] [address] [facility] [id number] [address] [place] [address] Mar, Type 2 diabetes mellitus wit hout complication E11.9 and Blurry vision, bilateral H53.8 [place] [address] [facility] [id number] [address] [place] [address] Mar, Vitamin B12 deficiency E53.8 [place] [address] [facility] [id number] [address] [place] [address] Mar, Crohn's disease of both smal l and large intestine with complication K50.819 [place] [address] [facility] [id number] [address] [place] [address] February, Vitamin B12 deficiency E53.8 [facility] [address] [facility] [id number] [address] [place] [address] Jan, Crohn's disease of both smal l and large intestine with complication K50.819 [facility] [address] [facility] [id number] [address] [place] [address] Jan, Crohn's disease of both smal l and large intestine with complication K50.819 [facility] [address] [facility] [id number] [address] [place] [address] Jan, Dark brown-colored urine R82 .99 and Acute suppurative otitis media of right ear without spontaneous rupture of tympanic membrane, recurrence not specified H66.001 [place] [id number] [place] [address] Jan, Encounter for immunization Z 23 [place] [address] [place] [id number] [address] [place] [address] Dec, Crohn's disease of both smal l and large intestine with complication K50.819 and Eustachian tube dysfunction, right H69.81 [place] [address] [address] Dec, [place] [address] [address] Dec, Contusion of right knee, ini tial encounter S80.01XA [place] [address] [place] [id number] [address] [place] [address] Dec, [place] [address] [address] Dec, Acute pain of right knee M25 .561 [place] [address] [address] Dec, Iron deficiency anemia due t o chronic blood loss D50.0 [place] [address] [place] [id number] [address] [place] [address] Dec, Hyperlipidemia E78.5 ; Type 2 diabetes mellitus without complication E11.9 ; Vitamin B12 deficiency E53.8 ; Essential hypertension I10 ; Obstructive sleep apnea on CPAP G47.33 and Periodic limb movement sleep disorder G47.61 [place] [address] [place] [id number] [address] [place] [address] Nov, Type 2 diabetes mellitus wit hout complication E11.9 ; Vitamin B12 deficiency E53.8 ; Hyperlipidemia E78.5 ; Essential hypertension I10 ; Obstructive sleep apnea on CPAP G47.33 ; Periodic limb movement sleep disorder G47.61 ; Anxiety F41.9 ; Acquired hypothyroidism E03.9 and Chronic tension-type headache, intractable G44.221 [facility] [address] [facility] [id number] [address] [place] [address] 10 Nov, 2016 Crohn's disease of both smal l and large intestine with complication K50.819 [facility] [address] [facility] [id number] [address] [place] [address] Nov, Vitamin B12 deficiency E53.8 [facility] [address] [id number] [address] [place] [address] Oct, [place] [address] [facility] [id number] [address] [place] [address] Oct, Vitamin B12 deficiency E53.8 [place] [address] [facility] [id number] [address] [place] [address] Sep, [place] [address] [facility] [id number] [address] [place] [address] Sep, Vitamin B12 deficiency E53.8 [place] [id number] [id number] [address] [place] [address] Aug, [place] [address] [place] [id number] [address] [place] [address] Aug, Vitamin B12 deficiency E53.8 [place] [address] [facility] [id number] [address] [place] [address] Aug, [facility] [address] [facility] [id number] [address] [place] [phone] Jul, Elevated ALT measurement R74 .0 [place] [address] [facility] [id number] [address] [place] [phone] Jul, Hematuria R31.9 ; Acute righ t-sided thoracic back pain M54.6 ; Major depressive disorder, recurrent episode, moderate F33.1 and Elevated ALT measurement R74.0 [place] [address] [facility] [id number] [address] [place] [address] Jul, [place] [address] [place] [id number] [address] [place] [phone] 19 Jul, 2016 Elevated ALT measurement R74 .0 [place] [address] [address] 14 Jul, 2016 Iron deficiency anemia due t o chronic blood loss D50.0 [place] [address] [address] 14 Jul, 2016 Type 2 diabetes mellitus wit hout complication E11.9 ; Acquired hypothyroidism E03.9 ; Iron deficiency anemia due to chronic blood loss D50.0 ; Hyperlipidemia E78.5 and Essential hypertension I10 [place] [address] [address] Jun, [place] [address] [address] Jun, Vitamin B12 deficiency E53.8 [place] [address] [address] 16 Jun, 2016 Type 2 diabetes mellitus wit hout complication E11.9 ; Acquired hypothyroidism E03.9 ; Iron deficiency anemia due to chronic blood loss D50.0 ; Hyperlipidemia E78.5 ; Essential hypertension I10 ; Chronic tension-type headache, intractable G44.221 ; Pulsatile tinnitus, bilateral H93.13 ; Obstructive sleep apnea on CPAP G47.33 and Major depressive disorder, recurrent episode, moderate F33.1 [place] [address] [place] [id number] [address] [place] [address] May, Vitamin B12 deficiency E53.8 [place] [address] [place] [id number] [address] [place] [address] May, [place] [address] [address] Apr, Vitamin B12 deficiency E53.8 [place] [address] [place] [id number] [address] [place] [address] Apr, [facility] [address] [facility] [id number] [address] [place] [address] 28 Mar, 2016 Chronic tension-type headach e, intractable G44.221 and Major depressive disorder, recurrent episode, moderate F33.1 [facility] [address] [facility] [id number] [address] [place] [address] 14 Mar, 2016 Vitamin B12 deficiency E53.8 [facility] [address] [facility] [id number] [address] [place] [address] February, [facility] [address] [facility] [id number] [address] [place] [address] February, Vitamin B12 deficiency E53.8 [facility] [address] [facility] [id number] [address] [place] [address] February, [facility] [address] [facility] [id number] [address] [place] [address] Jan, Dysuria R30.0 [facility] [address] [facility] [id number] [address] [place] [phone] 22 Jan, 2016 Type 2 diabetes mellitus wit hout complication E11.9 and Essential hypertension I10 [facility] [address] [facility] [id number] [address] [place] [phone] 15 Jan, 2016 Chronic diarrhea K52.9 [facility] [address] [facility] [id number] [address] [place] [address] Jan, [facility] [address] [facility] [id number] [address] [place] [address] Jan, Chronic diarrhea K52.9 [facility] [address] [facility] [id number] [address] [place] [address] Jan, [facility] [address] [facility] [id number] [address] [place] [phone] Jan, Dysuria R30.0 [facility] [address] [facility] [id number] [address] [place] [phone] 07 Jan, 2016 Vitamin B12 deficiency E53.8 [facility] [address] [facility] [id number] [address] [place] [phone] 07 Jan, 2016 Dysuria R30.0 and Iron defic iency anemia due to chronic blood loss D50.0 [facility] [address] [facility] [id number] [address] [place] [phone] 05 Jan, 2016 Dysuria R30.0 [facility] [address] [facility] [id number] [address] [place] [phone] 04 Jan, 2016 [facility] [address] [facility] [id number] [address] [place] [phone] 15 Dec, 2015 [facility] [address] [facility] [id number] [place] [phone] Dec, Iron deficiency anemia due t o chronic blood loss D50.0 [facility] [address] [facility] [id number] [address] [place] [phone] 10 Dec, 2015 Dysuria R30.0 ; Fatigue R53. 83 ; Hyperlipidemia E78.5 and Diarrhea R19.7 [facility] [address] [facility] [id number] [address] [place] [phone] Dec, [facility] [address] [facility] [id number] [address] [place] [phone] Dec, [facility] [address] [facility] [id number] [address] [place] [address] Nov, Vitamin B12 deficiency E53.8 [facility] [address] [facility] [id number] [address] [place] [phone] Oct, Vitamin B12 deficiency E53.8 [facility] [address] [facility] [id number] [address] [place] [phone] Oct, [facility] [address] [facility] [id number] [address] [place] [phone] Oct, Headache R51 [facility] [address] [place] [id number] [address] [place] [phone] Oct, Essential hypertension I10 ; Type 2 diabetes mellitus without complication E11.9 ; Vitamin B12 deficiency E53.8 ; Acquired hypothyroidism E03.9 ; Iron deficiency anemia due to chronic blood loss D50.0 and Hyperlipidemia E78.5 [facility] [address] [facility] [id number] [address] [place] [phone] Sep, Essential hypertension I10 ; Vitamin B12 deficiency E53.8 ; Iron deficiency anemia due to chronic blood loss D50.0 ; Type 2 diabetes mellitus without complication E11.9 ; Hyperlipidemia E78.5 and Acquired hypothyroidism E03.9 [facility] [address] [facility] [id number] [address] [place] [phone] Sep, [facility] [address] [place] [id number] [place] [phone] Sep, [facility] [address] [place] [id number] [place] [phone] Jul, [facility] [address] [place] [id number] [address] [place] [phone] Jun, [facility] [address] [place] [id number] [address] [place] [phone] Jun, [facility] [address] [place] [id number] [place] [address] Jun, Hyperlipidemia 272.4 ; Iron deficiency anemia 280.9 ; Hypothyroidism 244.9 ; Diabetes mellitus without mention of complication, type II or unspecified type, not stated as uncontrolled 250.00 and Hypertension 401.9 [facility] [address] [place] [id number] [address] [place] [phone] Jun, [facility] [address] [place] [id number] [address] [place] [phone] Jun, [facility] [address] [place] [id number] [address] [place] [phone] May, Hyperlipidemia 272.4 [facility] [address] [place] [id number] [address] [place] [phone] May, [facility] [address] [id number] [address] [place] [phone] May, [facility] [address] [id number] [address] [place] [phone] Apr, Diabetes mellitus without me ntion of complication, type II or unspecified type, not stated as uncontrolled 250.00 ; Hypothyroidism 244.9 ; Hyperlipidemia 272.4 ; Pain in joint, lower leg 719.46 and RUQ pain 789.01 [facility] [address] [id number] [address] [place] [id number] Mar, Sinusitis 473.9 [facility] [address] [id number] [address] [place] [id number] Mar, [facility] [address] [id number] [address] [place] [id number] Mar, [facility] [address] [id number] [address] [place] [id number] Mar, Hematochezia 578.1 [facility] [address] [id number] [address] [place] [phone] February, Sinusitis 473.9 [facility] [address] [id number] [address] [place] [phone] February, [facility] [address] [id number] [address] [place] [phone] Jan, [facility] [address] [id number] [address] [place] [phone] Jan, [facility] [address] [id number] [address] [place] [phone] Dec, [facility] [address] [id number] [address] [place] [id number] Dec, [facility] [address] [id number] [address] [place] [phone] Dec, [facility] [address] [id number] [address] [place] [phone] 24 Dec, 2014 [facility] [address] [id number] [address] [place] [address], [place] [phone] Dec, [facility] [address] [id number] [address] [place] [address], [place] [id number] Dec, [facility] [facility] [address] [id number] [address] [place] [address], [place] [address] Dec, [facility] [address] [id number] [address] [place] [address], [place] [address] Dec, [facility] [address] [id number] [address] [place] [address], [place] [address] Dec, [facility] [address] [id number] [address] [place] [address], [place] [address] Dec, [facility] [address] [id number] [address] [place] [address], [place] [address] Dec, [facility] [address] [id number] [address] [place] [address], [place] [address] Nov, [facility] [address] [id number] [address] [place] [address], [place] [address] Nov, [facility] [address] [id number] [address] [place] [address], [place] [address] Nov, [facility] [address] [id number] [address] [place] [address], [place] [address] Nov, [facility] [address] [id number] [address] [place] [address], [place] [address] Oct, [facility] [address] [id number] [address] [place] [address], [place] [address] Oct, [facility] [address] [id number] [address] [place] [address], [place] [address] Oct, [facility] [address] [id number] [address] [place] [address] Oct, [facility] [address] [id number] [address] [place] [address], [place] [address] Oct, [facility] [address] [id number] [address] [place] [address], [place] [address] Oct, [facility] [address] [id number] [address] [place] [address], [place] [address] Sep, [facility] [address] [id number] [address] [place] [address], [place] [address] Sep, [facility] [address] [id number] [address] [place] [address], [place] [address] Sep, [facility] [address] [id number] [address] [place] [address], [place] [address] Sep, [facility] [address] [id number] [address] [place] [address], [place] [address] Sep, [facility] [address] [id number] [address] [place] [address], [place] [address] Sep, [facility] [address] [id number] [address] [place] [address], [place] [address] Sep, [facility] [address] [id number] [address] [place] [address], [place] [address] Aug, [facility] [address] [id number] [address] [place] [address], [place] [address] Aug, [facility] [address] [id number] [address] [place] [address], [place] [address] Aug, [facility] [address] [id number] [address] [place] [address], [place] [address] Aug, [facility] [address] [id number] [address] [place] [address], [place] [address] Aug, [facility] [address] [id number] [address] [place] [address], [place] [address] Aug, [facility] [address] [id number] [address] [place] [address], [place] [address] Aug, [facility] [address] [id number] [address] [place] [address], [place] [address] Aug, [facility] [address] [id number] [address] [place] [address], [place] [address] Aug, [facility] [address] [id number] [address] [place] [address], [place] [address] Aug, [facility] [address] [id number] [address] [place] [address] Aug, [facility] [address] [id number] [address] [place] [address], [place] [address] Aug, [facility] [address] [id number] [address] [place] [address], [place] [address] Aug, [facility] [address] [id number] [address] [place] [address], [place] [address] Aug, [facility] [address] [id number] [address] [place] [address], [place] [address] Jul, [facility] [address] [id number] [address] [place] [address], [place] [address] Jul, [facility] [address] [id number] [address] [place] [address], [place] [address] Jul, [facility] [address] [id number] [address] [place] [address] Jul, [facility] [address] [id number] [address] [place] [address] Jun, [facility] [address] [id number] [address] [place] [address], [place] [address] 24 Jun, 2014 [facility] [address] [id number] [address] [place] [address], [place] [address] Jun, [facility] [address] [id number] [address] [place] [address], [place] [address] Jun, [facility] [address] [id number] [facility] [address] 19 Jun, 2013 [facility] [address] [id number] [facility] [address] 19 Jun, 2013 [facility] [address] [id number] [facility] [address] 11 Jun, 2013 [facility] [address] [id number] [address] [place] [address], [place] [address] 11 Jun, 2013 [facility] [address] [id number] [address] [place] [address], [place] [address] 11 Jun, 2013 [facility] [address] [id number] [address] [place] [address], [place] [address] 11 Jun, 2013 [facility] [address] [id number] [address] [place] [address], [place] [address] 10 Jun, 2013 [facility] [address] [id number] [address] [place] [address], [place] [address] 10 Jun, 2013 [facility] [address] [id number] [address] [place] [address], [place] [address] 09 Jun, 2014 [facility] [address] [id number] [address] [place] [address], [place] [address] Jun, 2013 [facility] [address] [id number] [address] [place] [address], [place] [address] 14 May, 2014 [facility] [address] [id number] [address] [place] [address], [place] [address] May, [facility] [address] [id number] [address] [place] [address], [place] [address] May, [facility] [address] [id number] [address] [place] [address], [place] [address] May, [facility] [address] [id number] [address] [place] [address], [place] [address] May, [facility] [address] [id number] [address] [place] [address], [place] [address] May, [facility] [address] [id number] [facility] [address] Apr, [facility] [address] [id number] [address] [place] [address], [place] [address] Apr, [facility] [address] [id number] [facility] [address] Apr, [facility] [address] [id number] [address] [place] [address], [place] [address] Apr, [facility] [address] [id number] [address] [place] [address], [place] [address] Apr, [facility] [address] [id number] [address] [place] [address], [place] [address] Apr, [facility] [address] [id number] [address] [place] [address], [place] [address] Apr, [facility] [address] [id number] [address] [place] [address], [place] [address] Apr, [facility] [address] [id number] [address] [place] [address], [place] [address] Apr, [facility] [address] [id number] [address] [place] [address], [place] [address] Apr, [facility] [address] [id number] [address] [place] [address], [place] [address] Apr, [facility] [address] [id number] [address] [place] [address], [place] [address] Mar, [facility] [address] [id number] [address] [place] [address], [place] [address] Mar, [facility] [address] [id number] [address] [place] [address], [place] [address] Mar, [facility] [address] [id number] [address] [place] [address], [place] [address] Mar, [facility] [address] [id number] [address] [place] [address], [place] [address] February, [facility] [address] [id number] [address] [place] [address], [place] [address] February, [facility] [address] [id number] [address] [place] [address], [place] [address] Jan, [facility] [address] [id number] [address] [place] [address], [place] [address] Jan, [facility] [address] [place] [id number] Jan, [facility] [address] [id number] [address] [place] [address], [place] [address] Jan, [facility] [address] [id number] [address] [place] [address], [place] [address] Jan, [facility] [address] [id number] [address] [place] [address], [place] [address] Jan, [facility] [address] [id number] [address] [place] [address], [place] [address] Jan, [facility] [address] [id number] [address] [place] [address], [place] [address] Jan, [facility] [address] [id number] [address] [place] [address], [place] [address] Jan, [facility] [address] [id number] [address] [place] [address], [place] [address] Jan, [facility] [address] [id number] [address] [place] [address], [place] [address] Jan, [facility] [address] [id number] [address] [place] [address], [place] [address] Jan, [facility] [address] [id number] [address] [place] [address], [place] [address] Jan, [facility] [address] [id number] [address] [place] [address], [place] [address] Jan, [facility] [address] [id number] [facility] [address] 07 Jan, 2014 [facility] [address] [id number] [address] [place] [address], [place] [address] Jan, [facility] [address] [id number] [address] [place] [address], [place] [address] Jan, [facility] [address] [id number] [address] [place] [address], [place] [address] Dec, [facility] [address] [id number] [address] [place] [address], [place] [address] 18 Dec, 2013 [facility] [address] [id number] [address] [place] [address], [place] [address] Dec, [facility] [address] [id number] [address] [place] [address], [place] [address] Dec, [facility] [address] [id number] [address] [place] [address], [place] [address] Dec, [facility] [address] [id number] [address] [place] [address], [place] [address] Dec, [facility] [address] [id number] [address] [place] [address], [place] [address] Dec, [facility] [address] [id number] [address] [place] [address], [place] [address] Nov, [facility] [address] [id number] [address] [place] [address], [place] [address] Nov, [facility] [address] [id number] [address] [place] [address], [place] [address] Nov, [facility] [address] [id number] [address] [place] [address], [place] [address] Nov, [facility] [address] [id number] [address] [place] [address], [place] [address] Nov, [facility] [address] [id number] [address] [place] [address], [place] [address] Nov, [facility] [address] [id number] [address] [place] [address], [place] [address] Nov, [facility] [address] [id number] [address] [place] [address], [place] [address] Oct, [facility] [address] [id number] [address] [place] [address], [place] [address] Oct, [facility] [address] [id number] [address] [place] [address], [place] [address] Sep, [facility] [address] [id number] [address] [place] [address], [place] [address] Sep, [facility] [address] [id number] [address] [place] [address], [place] [address] Sep, [facility] [address] [id number] [address] [place] [address], [place] [address] Sep, [facility] [address] [id number] [address] [place] [address], [place] [address] Sep, [facility] [address] [id number] [address] [place] [address], [place] [address] Sep, [facility] [address] [id number] [address] [place] [address], [place] [address] Sep, [facility] [address] [id number] [address] [place] [address], [place] [address] Sep, [facility] [address] [id number] [address] [place] [address], [place] [address] Sep, [facility] [address] [id number] [address] [place] [address], [place] [address] Sep, [facility] [address] [id number] [address] [place] [address], [place] [address] Aug, [facility] [address] [id number] [address] [place] [address], [place] [address] Aug, [facility] [address] [id number] [address] [place] [address] Aug, [facility] [address] [id number] [address] [place] [address] Aug, [facility] [address] [id number] [address] [place] [address] Aug, [facility] [address] [facility] [id number] [address] [place] [address] Jul, [facility] [address] [facility] [id number] [address] [place] [address] Jul, [facility] [address] [facility] [id number] [address] [place] [address] Jul, [facility] [address] [facility] [id number] [address] [place] [address] Jul, IMMUNIZATIONS No Known Immunizations SOCIAL HISTORY Never Assessed REASON FOR VISIT Weight management--Mandi, Patient is scheduled for surgery in 2 weeks to stewart ve small intestine repaired. Small intestine is closing off. PLAN OF CARE Activity Details Follow Up 6 Weeks Reason:Post surgery VITAL SIGNS Height 62 in 2018-05-02 Weight 301.1 lbs 2018-05-02 Temperature 98.3 degrees Fahrenheit 2018-05-02 Heart Rate 76 bpm 2018-05-02 Respiratory Rate 20 2018-05-02 BMI 55.07 kg/m2 2018-05-02 Blood pressure systolic 134 mmHg 2018-05-02 Blood pressure diastolic 80 mmHg 2018-05-02 MEDICATIONS Medication Instructions Dosage Frequency Start Date End Date Duration S tatus MetFORMIN HCl ER 500 MG TAKE TWO TABLETS BY MOUTH TWICE DAILY 90 Active Lisinopril 40 MG TAKE ONE TABLET BY MOUTH ONCE DAILY 90 Active Levothyroxine Sodium 100 MCG TAKE ONE TA BLET BY MOUTH ONCE DAILY IN THE MORNING ON AN EMPTY STOMACH (MUST HAVE LABS DRAWN FOR REFILL) 90 Active Cyanocobalamin 1000 MCG/ML Injection one time monthly inject 1 ml 90 days Active Januvia 100 MG TAKE ONE TABLET BY MOUTH ONCE DAILY 90 Active VanishPoint Syringe 23G X 1 as directed Dec, Active Zoloft 100 mg Orally Once a day 2 tablets 24h Active Zetia 10 MG TAKE ONE TABLET BY MOUTH ONCE DAILY 90 Active Vitamin C 500 MG Not-Alek ing Melatonin 5 MG Orally Once a day 1 tablet at bedtime as needed with f ood 24h Active Vitamin D 1000 UNIT Orally Once a day 1 tablet 24h Active Ferrous Sulfate 325 (65 Fe) MG Orally Once a day 1 tablet 24h Dec Not-Taking RESULTS No Results PROCEDURES Procedure Date Ordered Result Body Site [facility] VISIT ESTABLISHED PATIENT May 02, 2018 INSTRUCTIONS MEDICATIONS ADMINISTERED No Known Medications [...]
--- OUTSIDE RECORDS SUMMARY | 2020-03-16 12:04 | XMS REPORT ---
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 Photoengraver Apprentice Name Role Phone BRENTON DORAN Unavailable PROBLEMS Type Condition ICD9-CM Code TGE08-CW Code Onset Dates Condition S tatus SNOMED Code Problem Anxiety F41.9 Active 45405724 Problem Chronic tension-type headache, intractable G44.221 Active 698970797 Problem Right upper quadrant pain R10.11 Acti ve 59091736 Problem Vitamin D deficiency E55.9 Active 43381227 Problem Sensorineural hearing loss of right ear H90.41 Active 26021873 Problem BMI 50.0-59.9, adult Z68.43 Active 791036149 Problem Fatty liver K76.0 Active 10543667 7 Problem Frequent falls R29.6 Active 89087 2001 Problem Crohn's disease of both small and large intestin e with complication K50.819 Active 78422572 Problem Type 2 diabetes mellitus with other specified complication E11.69 Active 547139463615 Problem Hyperlipidemia, unspecified E78.5 Ac tive 69163323 Problem MACHUCA (nonalcoholic steatohepatitis) K75.81 Active 726087440 Problem Iron deficiency anemia due to chronic blood loss D 50.0 Active 86791724 Problem Periodic limb movement sleep disorder G47.61 Active 075318314 Problem Obstructive sleep apnea on CPAP G47.33 Active 50312954 Problem Essential hypertension I10 Active 07757518 Problem Hyperlipidemia E78.5 Active 62793 004 Problem Chronic diarrhea K52.9 Active 236 671023 Problem Acquired hypothyroidism E03.9 Active 205189343 Problem Vitamin B12 deficiency E53.8 Active 835829308 Problem Major depressive disorder, recurrent episode, moderate F33.1 Active 512493303 ALLERGIES Substance Reaction Event Type Date Status Penicillin V Potassium Unknown Drug Allergy May, Activ e Niacin Unknown Drug Allergy May, Active Morphine Sulfate Unknown Drug Allergy May, Active Lipitor abdominal pain Drug Allergy May, Active Dilaudid Unknown Drug Allergy May, Active Bactrim Unknown Drug Allergy May, Active Amoxicillin Unknown Drug Allergy May, Active Tetanus&diphtheria Toxoid Unknown Non Drug Allergy May, 8 Active Sulfamethoxazole-Trimethoprim Unknown Drug Allergy May, 8 Active Influenza Virus Vacc,specific Got flu and was told to never get the vaccine again Non Drug Allergy May, Active Adhesive Unknown Non Drug Allergy May, Active ENCOUNTERS Encounter Location Date Diagnosis [facility] [address] [address] Jul, [place] [address] [address] Jun, Iron deficiency anemia due t o chronic blood loss D50.0 ; Hyperlipidemia E78.5 ; Type 2 diabetes mellitus with other specified complication E11.69 ; Vitamin B12 deficiency E53.8 and Vitamin D deficiency E55.9 [facility] [address] [place] [address] Jun, Cough R05 and BMI 50.0-59.9, adult Z68.43 [place] [address] [address] Jun, [place] [address] [place] [id number] [place] [address] May, Iron deficiency anemia due t o chronic blood loss D50.0 ; Chronic diarrhea K52.9 ; Essential hypertension I10 ; Type 2 diabetes mellitus with other specified complication E11.69 ; Vitamin D deficiency E55.9 ; Colon stricture K56.699 ; Vitamin B12 deficiency E53.8 ; Hyperlipidemia E78.5 and BMI 50.0-59.9, adult Z68.43 [facility] [address] [place] [id number] [place] [address] May, [facility] [address] [place] [id number] [place] [address] Apr, Nonhealing wound of heel S91 .309A and Body mass index (BMI) of 50- 59.9 in adult Z68.43 [place] [address] [place] [id number] [place] [address] Mar, [place] [address] [address] Mar, BMI 50.0-59.9, adult Z68.43 ; Flank pain R10.9 and Weight loss counseling, encounter for Z71.3 [place] [address] [address] February, [place] [address] [address] Jan, [place] [address] [address] Jan, [facility] [address] [address] Jan, Diarrhea due to staphylococc us A04.8 and Diarrhea, unspecified type R19.7 [place] [address] [place] [id number] [place] [address] Jan, Acquired hypothyroidism E03. 9 ; Type 2 diabetes mellitus with other specified complication E11.69 ; Hyperlipidemia E78.5 ; Essential hypertension I10 ; Major depressive disorder, recurrent episode, moderate F33.1 and Vitamin D deficiency E55.9 [place] [address] [place] [id number] [place] [address] Jan, Type 2 diabetes mellitus wit h other specified complication E11.69 ; Hyperlipidemia E78.5 ; Essential hypertension I10 ; Acquired hypothyroidism E03.9 ; Major depressive disorder, recurrent episode, moderate F33.1 ; Vitamin D deficiency E55.9 ; Sinus congestion R09.81 and BMI 50.0-59.9, adult Z68.43 [place] [address] [place] [id number] [place] [address] Dec, [place] [address] [address] Sep, Encounter for immunization Z 23 [facility] [address] [facility] [id number] [address] [place] [address] Sep, [facility] [address] [place] [id number] [place] [id number] Sep, Vitamin B12 deficiency E53.8 [place] [address] [place] [id number] [place] [address] Aug, [place] [address] [address] Aug, BMI 60.0-69.9, adult Z68.44 and Acute non-recurrent maxillary sinusitis J01.00 [place] [address] [place] [id number] [place] [address] Aug, [place] [address] [address] Aug, Medicare annual wellness vis it, initial Z00.00 ; Screening for breast cancer Z12.31 ; BMI 40.0-44.9, adult Z68.41 and Acquired hypothyroidism E03.9 [place] [address] [place] [id number] [place] [address] Jul, Actinic keratosis L57.0 [place] [address] [place] [id number] [place] [address] Jul, Actinic keratosis L57.0 [place] [address] [place] [id number] [place] [address] Jul, Type 2 diabetes mellitus wit h other specified complication E11.69 ; Actinic keratosis L57.0 and Hypothyroidism, unspecified E03.9 [place] [address] [place] [id number] [place] [address] Jul, [place] [address] [place] [id number] [place] [address] Jul, [place] [address] [place] [address] [address] Jul, Vitamin B12 deficiency E53.8 [place] [id number] [address] Jun, Acquired hypothyroidism E03. 9 and Chronic tension-type headache, intractable G44.221 [place] [id number] [address] Jun, Back muscle spasm M62.830 an d BMI 50.0-59.9, adult Z68.43 [place] [address] [address] Jun, Vitamin B12 deficiency E53.8 [place] [address] [address] Jun, Crohn's disease of both smal l and large intestine with complication K50.819 [place] [address] [address] Jun, Crohn's disease of both smal l and large intestine with complication K50.819 [place] [address] [address] May, Hyperlipidemia E78.5 ; Anxie ty F41.9 and Essential hypertension I10 [place] [address] [address] May, [place] [address] [address] May, Encounter for immunization Z 23 and Vitamin B12 deficiency E53.8 [place] [address] [address] May, [place] [address] [address] Apr, [place] [address] [address] Apr, [place] [address] [facility] [id number] [address] [place] [address] Apr, Crohn's disease of both smal l and large intestine with complication K50.819 [place] [address] [facility] [id number] [address] [place] [address] Apr, Vitamin B12 deficiency E53.8 [place] [address] [facility] [id number] [address] [place] [address] Apr, Crohn's disease of both smal l and large intestine with complication K50.819 and Acute pain of right shoulder M25.511 [place] [address] [facility] [id number] [address] [place] [address] Mar, Type 2 diabetes mellitus wit hout complication E11.9 ; Frequent falls R29.6 and Other chest pain R07.89 [place] [address] [facility] [id number] [address] [place] [address] Mar, [place] [address] [facility] [id number] [address] [place] [address] Mar, [place] [address] [facility] [id number] [address] [place] [address] Mar, Type 2 diabetes mellitus wit hout complication E11.9 and Blurry vision, bilateral H53.8 [place] [address] [facility] [id number] [address] [place] [address] Mar, Vitamin B12 deficiency E53.8 [place] [address] [facility] [id number] [address] [place] [address] Mar, Crohn's disease of both smal l and large intestine with complication K50.819 [place] [address] [facility] [id number] [address] [place] [address] February, Vitamin B12 deficiency E53.8 [place] [address] [facility] [id number] [address] [place] [address] Jan, Crohn's disease of both smal l and large intestine with complication K50.819 [facility] [address] [facility] [id number] [address] [place] [address] Jan, Crohn's disease of both smal l and large intestine with complication K50.819 [facility] [address] [facility] [id number] [address] [place] [address] Jan, Dark brown-colored urine R82 .99 and Acute suppurative otitis media of right ear without spontaneous rupture of tympanic membrane, recurrence not specified H66.001 [facility] [address] [place] [address] Jan, Encounter for immunization Z 23 [place] [address] [address] Dec, Crohn's disease of both smal l and large intestine with complication K50.819 and Eustachian tube dysfunction, right H69.81 [place] [address] [place] [id number] [place] [address] Dec, [facility] [address] [place] [id number] [place] [address] Dec, Contusion of right knee, ini tial encounter S80.01XA [place] [address] [place] [id number] [place] [address] Dec, [place] [address] [place] [address] Dec, Acute pain of right knee M25 .561 [place] [address] [place] [id number] [place] [address] Dec, Iron deficiency anemia due t o chronic blood loss D50.0 [place] [address] [place] [id number] [place] [address] Dec, Hyperlipidemia E78.5 ; Type 2 diabetes mellitus without complication E11.9 ; Vitamin B12 deficiency E53.8 ; Essential hypertension I10 ; Obstructive sleep apnea on CPAP G47.33 and Periodic limb movement sleep disorder G47.61 [place] [address] [facility] [id number] [address] [place] [address] 22 Nov, 2016 Type 2 diabetes mellitus wit hout complication E11.9 ; Vitamin B12 deficiency E53.8 ; Hyperlipidemia E78.5 ; Essential hypertension I10 ; Obstructive sleep apnea on CPAP G47.33 ; Periodic limb movement sleep disorder G47.61 ; Anxiety F41.9 ; Acquired hypothyroidism E03.9 and Chronic tension-type headache, intractable G44.221 [place] [address] [place] [address] Nov, Crohn's disease of both smal l and large intestine with complication K50.819 [place] [address] [place] [address] Nov, Vitamin B12 deficiency E53.8 [place] [address] [place] [address] Oct, [place] [address] [place] [address] Oct, Vitamin B12 deficiency E53.8 [place] [address] [place] [id number] [place] [address] Sep, [place] [address] [place] [id number] [place] [address] Sep, Vitamin B12 deficiency E53.8 [place] [address] [place] [id number] [place] [address] Aug, [place] [address] [place] [id number] [place] [address] 14 Aug, 2016 Vitamin B12 deficiency E53.8 [place] [address] [place] [id number] [place] [address] 10 Aug, 2016 [place] [address] [place] [id number] [place] [address] 24 Jul, 2016 Elevated ALT measurement R74 .0 [place] [address] [place] [id number] [place] [address] Jul, Hematuria R31.9 ; Acute righ t-sided thoracic back pain M54.6 ; Major depressive disorder, recurrent episode, moderate F33.1 and Elevated ALT measurement R74.0 [facility] [address] [place] [id number] [place] [address] Jul, [place] [address] [address] Jul, Elevated ALT measurement R74 .0 [place] [address] [address] 14 Jul, 2016 Iron deficiency anemia due t o chronic blood loss D50.0 [place] [address] [place] [id number] [place] [address] 14 Jul, 2016 Type 2 diabetes mellitus wit hout complication E11.9 ; Acquired hypothyroidism E03.9 ; Iron deficiency anemia due to chronic blood loss D50.0 ; Hyperlipidemia E78.5 and Essential hypertension I10 [place] [address] [address] Jun, [place] [address] [address] 20 Jun, 2016 Vitamin B12 deficiency E53.8 [place] [address] [place] [id number] [place] [address] 16 Jun, 2016 Type 2 diabetes mellitus wit hout complication E11.9 ; Acquired hypothyroidism E03.9 ; Iron deficiency anemia due to chronic blood loss D50.0 ; Hyperlipidemia E78.5 ; Essential hypertension I10 ; Chronic tension-type headache, intractable G44.221 ; Pulsatile tinnitus, bilateral H93.13 ; Obstructive sleep apnea on CPAP G47.33 and Major depressive disorder, recurrent episode, moderate F33.1 [place] [address] [place] [id number] [place] [address] May, Vitamin B12 deficiency E53.8 [place] [address] [place] [id number] [place] [address] May, [facility] [address] [facility] [id number] [address] [place] [address] Apr, Vitamin B12 deficiency E53.8 [facility] [address] [facility] [id number] [address] [place] [id number] 05 Apr, 2016 [facility] [address] [facility] [id number] [address] [place] [address] Mar, Chronic tension-type headach e, intractable G44.221 and Major depressive disorder, recurrent episode, moderate F33.1 [facility] [address] [facility] [id number] [address] [place] [id number] 14 Mar, 2016 Vitamin B12 deficiency E53.8 [facility] [address] [facility] [id number] [address] [place] [address] February, [facility] [address] [facility] [id number] [address] [place] [phone] February, Vitamin B12 deficiency E53.8 [facility] [address] [facility] [id number] [address] [place] [address] February, [facility] [address] [facility] [id number] [address] [place] [address] 27 Jan, 2016 Dysuria R30.0 [facility] [address] [facility] [id number] [address] [place] [id number] Jan, Type 2 diabetes mellitus wit hout complication E11.9 and Essential hypertension I10 [facility] [address] [facility] [id number] [address] [place] [phone] 15 Jan, 2016 Chronic diarrhea K52.9 [facility] [address] [facility] [id number] [address] [place] [address] Jan, [facility] [address] [facility] [id number] [address] [place] [address] Jan, Chronic diarrhea K52.9 [facility] [address] [facility] [id number] [address] [place] [id number] Jan, [facility] [address] [facility] [id number] [address] [place] [address] Jan, Dysuria R30.0 [facility] [address] [facility] [id number] [address] [place] [address] 07 Jan, 2016 Vitamin B12 deficiency E53.8 [facility] [address] [place] [id number] [place] [address] 07 Jan, 2016 Dysuria R30.0 and Iron defic iency anemia due to chronic blood loss D50.0 [facility] [address] [facility] [id number] [address] [place] [id number] 05 Jan, 2016 Dysuria R30.0 [facility] [address] [place] [id number] [place] [id number] 04 Jan, 2016 [facility] [address] [place] [id number] [place] [phone] 15 Dec, 2015 [facility] [address] [address] 11 Dec, 2015 Iron deficiency anemia due t o chronic blood loss D50.0 [facility] [address] [facility] [id number] [address] [place] [id number] 10 Dec, 2015 Dysuria R30.0 ; Fatigue R53. 83 ; Hyperlipidemia E78.5 and Diarrhea R19.7 [facility] [address] [place] [address] Dec, [facility] [address] [place] [id number] [place] [id number] Dec, [facility] [address] [place] [id number] [place] [phone] Nov, Vitamin B12 deficiency E53.8 [facility] [address] [place] [id number] [place] [phone] Oct, Vitamin B12 deficiency E53.8 [facility] [address] [place] [id number] [place] [phone] Oct, [facility] [address] [facility] [id number] [address] [place] [phone] Oct, Headache R51 [facility] [address] [facility] [id number] [address] [place] [id number] 07 Oct, 2015 Essential hypertension I10 ; Type 2 diabetes mellitus without complication E11.9 ; Vitamin B12 deficiency E53.8 ; Acquired hypothyroidism E03.9 ; Iron deficiency anemia due to chronic blood loss D50.0 and Hyperlipidemia E78.5 [facility] [address] [facility] [id number] [address] [place] [id number] 17 Sep, 2015 Essential hypertension I10 ; Vitamin B12 deficiency E53.8 ; Iron deficiency anemia due to chronic blood loss D50.0 ; Type 2 diabetes mellitus without complication E11.9 ; Hyperlipidemia E78.5 and Acquired hypothyroidism E03.9 [facility] [address] [facility] [id number] [address] [place] [address] Sep, [facility] [address] [place] [id number] [place] [phone] Sep, [facility] [address] [place] [address] Jul, [facility] [address] [place] [id number] [place] [phone] Jun, [facility] [address] [place] [id number] [place] [id number] 18 Jun, 2015 [facility] [address] [place] [id number] [place] [id number] 15 Jun, 2015 Hyperlipidemia 272.4 ; Iron deficiency anemia 280.9 ; Hypothyroidism 244.9 ; Diabetes mellitus without mention of complication, type II or unspecified type, not stated as uncontrolled 250.00 and Hypertension 401.9 [facility] [address] [place] [id number] [place] [address] Jun, [facility] [address] [place] [id number] [place] [phone] Jun, [facility] [address] [facility] [id number] [address] [place] [id number] May, Hyperlipidemia 272.4 [facility] [address] [facility] [id number] [address] [place] [address] May, [facility] [address] [place] [id number] [place] [address] May, [facility] [address] [place] [id number] [place] [address] Apr, Diabetes mellitus without me ntion of complication, type II or unspecified type, not stated as uncontrolled 250.00 ; Hypothyroidism 244.9 ; Hyperlipidemia 272.4 ; Pain in joint, lower leg 719.46 and RUQ pain 789.01 [facility] [address] [place] [id number] [place] [address] Mar, Sinusitis 473.9 [facility] [address] [address] Mar, [facility] [address] [facility] [id number] [address] [place] [id number] Mar, [facility] [address] [place] [id number] [place] [address] Mar, Hematochezia 578.1 [facility] [address] [facility] [id number] [address] [place] [id number] February, Sinusitis 473.9 [facility] [address] [facility] [id number] [address] [place] [phone] February, [facility] [address] [place] [id number] [place] [id number] Jan, [facility] [address] [place] [id number] [address] [place] [id number] Jan, [facility] [address] [id number] [address] [place] [id number] Dec, [facility] [address] [id number] [address] [place] [address], [place] [id number] Dec, [facility] [address] [id number] [address] [place] [address], [place] [id number] Dec, [facility] [address] [id number] [address] [place] [address], [place] [id number] Dec, [facility] [address] [id number] [address] [place] [address], [place] [id number] Dec, [facility] [address] [id number] [address] [place] [address], [place] [id number] Dec, [facility] [address] [id number] [address] [place] [address], [place] [id number] Dec, [facility] [address] [id number] [address] [place] [address], [place] [id number] Dec, [facility] [address] [id number] [address] [place] [address], [place] [id number] Dec, [facility] [address] [id number] [address] [place] [address], [place] [id number] Dec, [facility] [address] [id number] [address] [place] [address], [place] [id number] Dec, [facility] [address] [id number] [address] [place] [address], [place] [id number] Nov, [facility] [address] [id number] [address] [place] [address], [place] [address] Nov, [facility] [address] [id number] [address] [place] [address], [place] [address] Nov, [facility] [address] [id number] [address] [place] [address], [place] [address] Nov, [facility] [address] [id number] [address] [place] [address], [place] [address] Oct, [facility] [address] [id number] [address] [place] [address], [place] [address] Oct, [facility] [address] [id number] [address] [place] [address], [place] [address] Oct, [facility] [address] [id number] [address] [place] [address], [place] [address] Oct, [facility] [address] [id number] [address] [place] [address], [place] [address] Oct, [facility] [address] [id number] [address] [place] [address], [place] [address] Oct, [facility] [address] [id number] [address] [place] [address], [place] [address] Sep, [facility] [address] [id number] [address] [place] [address], [place] [address] Sep, [facility] [address] [id number] [address] [place] [address], [place] [address] Sep, [facility] [address] [id number] [address] [place] [address], [place] [address] Sep, [facility] [address] [id number] [address] [place] [address], [place] [address] Sep, [facility] [address] [id number] [address] [place] [address], [place] [address] Sep, [facility] [address] [id number] [address] [place] [address], [place] [address] Sep, [facility] [address] [id number] [address] [place] [address], [place] [address] Aug, [facility] [address] [id number] [address] [place] [address], [place] [address] Aug, [facility] [address] [id number] [address] [place] [address], [place] [address] Aug, [facility] [address] [id number] [address] [place] [address], [place] [address] Aug, [facility] [address] [id number] [address] [place] [address], [place] [address] Aug, [facility] [address] [id number] [address] [place] [address], [place] [address] Aug, [facility] [address] [id number] [address] [place] [address], [place] [address] Aug, [facility] [address] [id number] [address] [place] [address], [place] [address] Aug, [facility] [address] [id number] [address] [place] [address], [place] [address] Aug, [facility] [address] [id number] [address] [place] [address], [place] [address] Aug, [facility] [address] [id number] [address] [place] [address], [place] [address] Aug, [facility] [address] [id number] [address] [place] [address], [place] [address] Aug, [facility] [address] [id number] [address] [place] [address], [place] [address] Aug, [facility] [address] [id number] [address] [place] [address], [place] [address] Aug, [facility] [address] [id number] [address] [place] [address], [place] [address] Jul, [facility] [address] [id number] [address] [place] [address], [place] [address] Jul, [facility] [address] [id number] [address] [place] [address], [place] [address] Jul, [facility] [address] [id number] [address] [place] [address], [place] [address] Jul, [facility] [address] [id number] [address] [place] [address], [place] [address] Jun, [facility] [address] [id number] [address] [place] [address], [place] [address] Jun, [facility] [address] [id number] [facility] [place] [address] 23 Jun, 2013 [facility] [address] [id number] [facility] [place] [address] 23 Jun, 2013 [facility] [address] [id number] [address] [place] [address], [place] [address] 19 Jun, 2013 [facility] [address] [id number] [address] [place] [address], [place] [address] 19 Jun, 2013 [facility] [address] [id number] [address] [place] [address], [place] [address] 11 Jun, 2013 [facility] [address] [id number] [address] [place] [address], [place] [address] 11 Jun, 2013 [facility] [address] [id number] [address] [place] [address], [place] [address] 11 Jun, 2013 [facility] [address] [id number] [address] [place] [address], [place] [address] 11 Jun, 2013 [facility] [address] [id number] [address] [place] [address], [place] [address] 10 Jun, 2013 [facility] [address] [id number] [address] [place] [address], [place] [address] 10 Jun, 2013 [facility] [address] [id number] [address] [place] [address], [place] [address] 09 Jun, 2013 [facility] [address] [id number] [address] [place] [address], [place] [address] 09 Jun, 2013 [facility] [address] [id number] [address] [place] [address], [place] [address] 14 May, 2014 [facility] [address] [id number] [address] [place] [address], [place] [address] 14 May, 2014 [facility] [address] [id number] [address] [place] [address], [place] [address] 13 May, 2014 [facility] [address] [id number] [address] [place] [address], [place] [address] May, [facility] [address] [id number] [facility] [place] [address] May, [facility] [address] [id number] [facility] [place] [address] May, [facility] [address] [id number] [facility] [place] [address] Apr, [facility] [address] [id number] [facility] [place] [address] Apr, [facility] [address] [id number] [address] [place] [address], [place] [address] Apr, [facility] [address] [id number] [address] [place] [address], [place] [address] Apr, [facility] [address] [id number] [address] [place] [address], [place] [address] Apr, [facility] [address] [id number] [address] [place] [address], [place] [address] Apr, [facility] [address] [id number] [address] [place] [address], [place] [address] Apr, [facility] [address] [id number] [address] [place] [address], [place] [address] Apr, [facility] [address] [id number] [address] [place] [address], [place] [address] Apr, [facility] [address] [id number] [address] [place] [address], [place] [address] Apr, [facility] [address] [id number] [address] [place] [address], [place] [address] Apr, [facility] [address] [id number] [address] [place] [address], [place] [address] Mar, [facility] [address] [id number] [address] [place] [address], [place] [address] Mar, [facility] [address] [id number] [address] [place] [address], [place] [address] Mar, [facility] [address] [id number] [address] [place] [address], [place] [address] Mar, [facility] [address] [id number] [address] [place] [address], [place] [address] February, [facility] [address] [id number] [address] [place] [address], [place] [address] February, [facility] [address] [id number] [address] [place] [address], [place] [address] Jan, [facility] [address] [id number] [address] [place] [address], [place] [address] Jan, [address] [id number] Jan, [facility] [address] [id number] [address] [place] [address], [place] [address] Jan, [facility] [address] [id number] [address] [place] [address], [place] [address] Jan, [facility] [address] [id number] [address] [place] [address], [place] [address] Jan, [facility] [address] [id number] [address] [place] [address], [place] [address] Jan, [facility] [address] [id number] [address] [place] [address], [place] [address] Jan, [facility] [address] [id number] [address] [place] [address], [place] [address] Jan, [facility] [address] [id number] [address] [place] [address], [place] [address] Jan, [facility] [address] [id number] [address] [place] [address], [place] [address] Jan, [facility] [address] [id number] [address] [place] [address], [place] [address] Jan, [facility] [address] [id number] [address] [place] [address], [place] [address] Jan, [facility] [address] [id number] [address] [place] [address], [place] [address] Jan, [facility] [address] [id number] [address] [place] [address], [place] [address] Jan, [facility] [address] [id number] [address] [place] [address], [place] [address] Jan, [facility] [address] [id number] [address] [place] [address], [place] [address] Jan, [facility] [address] [id number] [address] [place] [address], [place] [address] Dec, [facility] [address] [id number] [address] [place] [address], [place] [address] Dec, [facility] [address] [id number] [address] [place] [address], [place] [address] Dec, [facility] [address] [id number] [address] [place] [address], [place] [address] Dec, [facility] [address] [id number] [address] [place] [address], [place] [address] Dec, [facility] [address] [id number] [address] [place] [address], [place] [address] Dec, [facility] [address] [id number] [address] [place] [address], [place] [address] Dec, [facility] [address] [id number] [address] [place] [address], [place] [address] Nov, [facility] [address] [id number] [address] [place] [address], [place] [address] Nov, [facility] [address] [id number] [address] [place] [address], [place] [address] Nov, [facility] [address] [id number] [address] [place] [address], [place] [address] Nov, [facility] [address] [id number] [address] [place] [address], [place] [address] Nov, [facility] [address] [id number] [address] [place] [address], [place] [address] Nov, [facility] [address] [id number] [address] [place] [address], [place] [address] Nov, [facility] [address] [id number] [address] [place] [address], [place] [address] Oct, [facility] [address] [id number] [address] [place] [address], [place] [address] Oct, [facility] [address] [id number] [address] [place] [address], [place] [address] Sep, [facility] [address] [id number] [address] [place] [address], [place] [address] Sep, [facility] [address] [id number] [address] [place] [address], [place] [address] Sep, [facility] [address] [id number] [address] [place] [address], [place] [address] Sep, [facility] [address] [id number] [address] [place] [address], [place] [address] Sep, [facility] [address] [id number] [address] [place] [address], [place] [address] Sep, [facility] [address] [id number] [address] [place] [address], [place] [address] Sep, [facility] [address] [id number] [address] [place] [address], [place] [address] Sep, [facility] [address] [id number] [address] [place] [address], [place] [address] Sep, [facility] [address] [id number] [address] [place] [address], [place] [address] Sep, [facility] [address] [id number] [address] [place] [address] Aug, [facility] [address] [id number] [address] [place] [address] Aug, [facility] [address] [id number] [address] [place] [address] Aug, [facility] [address] [id number] [address] [place] [address] Aug, [facility] [address] [id number] [address] [place] [address] Aug, [facility] [address] [id number] [address] [place] [address] Jul, [facility] [address] [id number] [address] [place] [address] Jul, [facility] [address] [id number] [address] [place] [address] Jul, [facility] [address] [id number] [address] [place] [address] Jul, IMMUNIZATIONS No Known Immunizations SOCIAL HISTORY Never Assessed REASON FOR VISIT Hospital f/u PLAN OF CARE Activity Details Follow Up 3 Months Reason:DMII VITAL SIGNS Height 62 in 2018-06-06 Weight 289 lbs 2018-06-06 Temperature 98.0 degrees Fahrenheit 2018-06-06 Heart Rate 68 bpm 2018-06-06 Respiratory Rate 18 2018-06-06 BMI 52.85 kg/m2 2018-06-06 Blood pressure systolic 122 mmHg 2018-06-06 Blood pressure diastolic 74 mmHg 2018-06-06 MEDICATIONS Medication Instructions Dosage Frequency Start Date End Date Duration S kurtis VidesPoint Syringe 23G X 1 as directed Dec, Active Melatonin 5 MG Orally Once a day 1 tablet at bedtime as needed with f ood 24h Active Cyanocobalamin 1000 MCG/ML Injection one time monthly inject 1 ml 90 days Active MetFORMIN HCl ER 500 MG TAKE TWO TABLETS BY MOUTH TWICE DAILY Active Vitamin C 500 MG Active Lisinopril 40 MG TAKE ONE TABLET BY MOUTH ONCE DAILY Active Zoloft 100 mg Orally Once a day 2 tablets 24h Active Zetia 10 MG TAKE ONE TABLET BY MOUTH ONCE DAILY 90 Active Ferrous Sulfate 325 (65 Fe) MG Orally Once a day 1 tablet 24h Dec Active Levothyroxine Sodium 100 MCG TAKE ONE TA BLET BY MOUTH ONCE DAILY IN THE MORNING ON AN EMPTY STOMACH (MUST HAVE LABS DRAWN FOR REFILL) 90 Active Vitamin D 1000 UNIT Orally Once a day 3 tablet 24h Active Januvia 100 MG TAKE ONE TABLET BY MOUTH ONCE DAILY 90 Not-Taking RESULTS No Results PROCEDURES Procedure Date Ordered Result Body Site [facility] VISIT ESTABLISHED PATIENT Jun 06, 2018 INSTRUCTIONS MEDICATIONS ADMINISTERED No Known Medications [...]
--- OUTSIDE RECORDS SUMMARY | 2020-03-16 12:05 | XMS REPORT ---
Author Author Swathi DORAN [facility] Address [address] [place] [address] Care Team Providers Care Accelerator Technician Name Role Phone BRENTON DORAN Unavailable PROBLEMS Type Condition ICD9-CM Code EHV79-WJ Code Onset Dates Condition S tatus SNOMED Code Problem Anxiety F41.9 Active 48152351 Problem Chronic tension-type headache, intractable G44.221 Active 476285354 Problem Right upper quadrant pain R10.11 Acti ve 76831433 Problem Vitamin D deficiency E55.9 Active 06461305 Problem Sensorineural hearing loss of right ear H90.41 Active 39429240 Problem BMI 50.0-59.9, adult Z68.43 Active 864931844 Problem Fatty liver K76.0 Active 62553563 7 Problem Frequent falls R29.6 Active 23134 2002 Problem Crohn's disease of both small and large intestin e with complication K50.819 Active 49935057 Problem Type 2 diabetes mellitus with other specified complication E11.69 Active 326523538444 Problem Hyperlipidemia, unspecified E78.5 Ac tive 00811450 Problem MACHUCA (nonalcoholic steatohepatitis) K75.81 Active 486993112 Problem Iron deficiency anemia due to chronic blood loss D 50.0 Active 66046768 Problem Periodic limb movement sleep disorder G47.61 Active 370438621 Problem Obstructive sleep apnea on CPAP G47.33 Active 36277364 Problem Essential hypertension I10 Active 97279996 Problem Hyperlipidemia E78.5 Active 97624 004 Problem Chronic diarrhea K52.9 Active 236 853981 Problem Acquired hypothyroidism E03.9 Active 551881016 Problem Vitamin B12 deficiency E53.8 Active 377935455 Problem Major depressive disorder, recurrent episode, moderate F33.1 Active 750291933 ALLERGIES No Information ENCOUNTERS Encounter Location Date Diagnosis [facility] [address] [facility] [id number] [address] [address] May, [facility] [address] [facility] [id number] [address] [place] [address] May, [facility] [address] [facility] [id number] [address] [place] [address] May, [facility] [address] [facility] [id number] [address] [place] [address] Apr, Nonhealing wound of heel S91 .309A and Body mass index (BMI) of 50- 59.[address] [facility] [address] [facility] [id number] [address] [place] [address] Mar, [facility] [address] [facility] [id number] [address] [place] [address] Mar, BMI 50.0-59.9, adult Z68.43 ; Flank pain R10.9 and Weight loss counseling, encounter for Z71.3 [place] [address] [facility] [id number] [address] [place] [address] February, [facility] [address] [facility] [id number] [address] [place] [address] Jan, [facility] [address] [facility] [id number] [address] [place] [address] Jan, [facility] [address] [facility] [id number] [address] [place] [address] Jan, Diarrhea due to staphylococc us A04.8 and Diarrhea, unspecified type R19.7 [facility] [address] [facility] [id number] [address] [place] [address] Jan, Acquired hypothyroidism E03. 9 ; Type 2 diabetes mellitus with other specified complication E11.69 ; Hyperlipidemia E78.5 ; Essential hypertension I10 ; Major depressive disorder, recurrent episode, moderate F33.1 and Vitamin D deficiency E55.9 [facility] [address] [facility] [id number] [address] [place] [address] Jan, Type 2 diabetes mellitus wit h other specified complication E11.69 ; Hyperlipidemia E78.5 ; Essential hypertension I10 ; Acquired hypothyroidism E03.9 ; Major depressive disorder, recurrent episode, moderate F33.1 ; Vitamin D deficiency E55.9 ; Sinus congestion R09.81 and BMI 50.0-59.9, adult Z68.43 [place] [address] [place] [id number] [address] [place] [address] Dec, [place] [address] [address] Sep, Encounter for immunization Z 23 [place] [address] [address] Sep, [place] [address] [address] Sep, Vitamin B12 deficiency E53.8 [place] [address] [address] Aug, [place] [address] [address] Aug, BMI 60.0-69.9, adult Z68.44 and Acute non-recurrent maxillary sinusitis J01.00 [place] [address] [address] 14 Aug, 2017 [place] [address] [address] Aug, Medicare annual wellness vis it, initial Z00.00 ; Screening for breast cancer Z12.31 ; BMI 40.0-44.9, adult Z68.41 and Acquired hypothyroidism E03.9 [place] [address] [address] Jul, Actinic keratosis L57.0 [place] [address] [place] [id number] [place] [address] Jul, Actinic keratosis L57.0 [place] [address] [place] [id number] [place] [address] Jul, Type 2 diabetes mellitus wit h other specified complication E11.69 ; Actinic keratosis L57.0 and Hypothyroidism, unspecified E03.9 [place] [address] [place] [id number] [address] [place] [address] Jul, [place] [address] [place] [id number] [place] [address] Jul, [place] [address] [address] Jul, Vitamin B12 deficiency E53.8 [place] [address] [address] Jun, Acquired hypothyroidism E03. 9 and Chronic tension-type headache, intractable G44.221 [place] [address] [address] Jun, Back muscle spasm M62.830 an d BMI 50.0-59.9, adult Z68.43 [place] [address] [address] Jun, Vitamin B12 deficiency E53.8 [place] [address] [address] Jun, Crohn's disease of both smal l and large intestine with complication K50.819 [place] [address] [address] Jun, Crohn's disease of both smal l and large intestine with complication K50.819 [place] [address] [place] [id number] [address] [place] [address] May, Hyperlipidemia E78.5 ; Anxie ty F41.9 and Essential hypertension I10 [place] [address] [place] [id number] [address] [place] [address] May, [place] [address] [address] May, Encounter for immunization Z 23 and Vitamin B12 deficiency E53.8 [facility] [address] [id number] [address] [place] [address] May, [facility] [address] [id number] [address] [place] [address] Apr, [facility] [address] [id number] [address] [place] [address] Apr, [facility] [address] [facility] [id number] [address] [place] [address] Apr, Crohn's disease of both smal l and large intestine with complication K50.819 [place] [address] [id number] [address] [place] [address] Apr, Vitamin B12 deficiency E53.8 [place] [address] [id number] [address] [place] [address] Apr, Crohn's disease of both smal l and large intestine with complication K50.819 and Acute pain of right shoulder M25.511 [place] [address] [id number] [address] [place] [address] Mar, Type 2 diabetes mellitus wit hout complication E11.9 ; Frequent falls R29.6 and Other chest pain R07.89 [place] [address] [facility] [id number] [address] [place] [address] Mar, [place] [address] [id number] [address] [place] [address] Mar, [place] [address] [facility] [id number] [address] [place] [address] Mar, Type 2 diabetes mellitus wit hout complication E11.9 and Blurry vision, bilateral H53.8 [place] [address] [id number] [address] [place] [address] Mar, Vitamin B12 deficiency E53.8 [place] [id number] [facility] [id number] [address] [place] [address] Mar, Crohn's disease of both smal l and large intestine with complication K50.819 [facility] [address] [facility] [id number] [address] [place] [address] February, Vitamin B12 deficiency E53.8 [facility] [address] [place] [id number] [address] [place] [address] Jan, Crohn's disease of both smal l and large intestine with complication K50.819 [facility] [address] [place] [id number] [address] [place] [address] Jan, Crohn's disease of both smal l and large intestine with complication K50.819 [facility] [address] [place] [id number] [address] [place] [address] Jan, Dark brown-colored urine R82 .99 and Acute suppurative otitis media of right ear without spontaneous rupture of tympanic membrane, recurrence not specified H66.001 [place] [address] [place] [address] Jan, Encounter for immunization Z 23 [place] [address] [address] Dec, Crohn's disease of both smal l and large intestine with complication K50.819 and Eustachian tube dysfunction, right H69.81 [place] [address] [place] [address] Dec, [place] [address] [place] [id number] [address] [place] [address] Dec, Contusion of right knee, ini tial encounter S80.01XA [place] [address] [place] [id number] [address] [place] [address] Dec, [place] [address] [place] [id number] [address] [place] [address] Dec, Acute pain of right knee M25 .561 [place] [address] [place] [address] [place] [address] Dec, Iron deficiency anemia due t o chronic blood loss D50.0 [place] [address] [place] [id number] [address] [place] [address] Dec, Hyperlipidemia E78.5 ; Type 2 diabetes mellitus without complication E11.9 ; Vitamin B12 deficiency E53.8 ; Essential hypertension I10 ; Obstructive sleep apnea on CPAP G47.33 and Periodic limb movement sleep disorder G47.61 [place] [address] [place] [address] Nov, Type 2 diabetes mellitus wit hout complication E11.9 ; Vitamin B12 deficiency E53.8 ; Hyperlipidemia E78.5 ; Essential hypertension I10 ; Obstructive sleep apnea on CPAP G47.33 ; Periodic limb movement sleep disorder G47.61 ; Anxiety F41.9 ; Acquired hypothyroidism E03.9 and Chronic tension-type headache, intractable G44.221 [place] [address] [place] [address] Nov, Crohn's disease of both smal l and large intestine with complication K50.819 [place] [address] [place] [address] Nov, Vitamin B12 deficiency E53.8 [place] [address] [place] [id number] [address] [place] [address] Oct, [place] [address] [place] [address] Oct, Vitamin B12 deficiency E53.8 [place] [address] [place] [id number] [address] [place] [address] Sep, [place] [address] [place] [address] Sep, Vitamin B12 deficiency E53.8 [place] [address] [place] [id number] [address] [place] [address] Aug, [place] [address] [place] [id number] [place] [address] 14 Aug, [address] [facility] [address] [facility] [id number] [address] [place] [address] [address], [address] [facility] [address] [facility] [id number] [address] [place] [address] 24 Jul, 2016 Elevated ALT measurement R74 .0 [facility] [address] [facility] [id number] [address] [place] [address] Jul, Hematuria R31.9 ; Acute righ t-sided thoracic back pain M54.6 ; Major depressive disorder, recurrent episode, moderate F33.1 and Elevated ALT measurement R74.0 [facility] [address] [facility] [id number] [address] [place] [address] Jul, [facility] [address] [facility] [id number] [address] [place] [address] Jul, Elevated ALT measurement R74 .0 [facility] [address] [facility] [id number] [address] [place] [address] Jul, Iron deficiency anemia due t o chronic blood loss D50.0 [facility] [address] [facility] [id number] [address] [place] [address] 14 Jul, 2016 Type 2 diabetes mellitus wit hout complication E11.9 ; Acquired hypothyroidism E03.9 ; Iron deficiency anemia due to chronic blood loss D50.0 ; Hyperlipidemia E78.5 and Essential hypertension I10 [facility] [address] [facility] [id number] [address] [place] [address] 26 Jun, 2016 [facility] [address] [id number] [address] [place] [address] 20 Jun, 2016 Vitamin B12 deficiency E53.8 [facility] [address] [facility] [id number] [address] [place] [address] 16 Jun, 2016 Type 2 diabetes mellitus wit hout complication E11.9 ; Acquired hypothyroidism E03.9 ; Iron deficiency anemia due to chronic blood loss D50.0 ; Hyperlipidemia E78.5 ; Essential hypertension I10 ; Chronic tension-type headache, intractable G44.221 ; Pulsatile tinnitus, bilateral H93.13 ; Obstructive sleep apnea on CPAP G47.33 and Major depressive disorder, recurrent episode, moderate F33.1 [facility] [address] [facility] [id number] [address] [place] [address] 16 May, 2016 [address] B[address]8 [facility] [address] [facility] [id number] [address] [place] [address] May, [facility] [address] [facility] [id number] [address] [place] [address] Apr, Vitamin B12 deficiency E53.8 [facility] [address] [facility] [id number] [address] [place] [address] Apr, [facility] [address] [facility] [id number] [address] [place] [address] Mar, Chronic tension-type headach e, intractable G44.221 and Major depressive disorder, recurrent episode, moderate F33.1 [facility] [address] [facility] [id number] [address] [place] [address] Mar, Vitamin B12 deficiency E53.8 [facility] [address] [facility] [id number] [address] [place] [address] February, [facility] [address] [facility] [id number] [address] [place] [address] February, Vitamin B12 deficiency E53.8 [facility] [address] [facility] [id number] [address] [place] [address] February, [facility] [address] [facility] [id number] [address] [place] [address] Jan, Dysuria R30.0 [facility] [address] [facility] [id number] [address] [place] [address] Jan, Type 2 diabetes mellitus wit hout complication E11.9 and Essential hypertension I10 [facility] [address] [facility] [id number] [address] [place] [address] 15 Jan, [address] [facility] [address] [id number] [address] [place] [address] [address] Jan, 2016 [facility] [address] [facility] [id number] [address] [place] [address] 12 Jan, [address] [facility] [address] [facility] [id number] [address] [place] [address] Jan, [facility] [address] [facility] [id number] [address] [place] [address] Jan, Dysuria R30.0 [facility] [address] [facility] [id number] [address] [place] [address] 07 Jan, [address]8 [facility] [address] [facility] [id number] [address] [place] [address] 07 Jan, 2016 Dysuria R30.0 and Iron defic iency anemia due to chronic blood loss D50.0 [facility] [address] [facility] [id number] [address] [place] [address] 05 Jan, [address] [facility] [address] [facility] [id number] [address] [place] [address] 04 Jan, 2016 [facility] [address] [facility] [id number] [address] [place] [address] 15 Dec, 2015 [facility] [address] [facility] [id number] [address] [place] [address] Dec, Iron deficiency anemia due t o chronic blood loss D50.0 [facility] [address] [facility] [id number] [address] [place] [address] 10 Dec, 2015 Dysuria R30.0 ; Fatigue R53. 83 ; Hyperlipidemia E78.[address] [facility] [address] [facility] [id number] [address] [place] [address] [address] Dec, 2015 [facility] [address] [facility] [id number] [address] [place] [address] Dec, [facility] [address] [facility] [id number] [address] [place] [address] Nov, Vitamin B12 deficiency E53.8 [facility] [address] [facility] [id number] [address] [place] [address] Oct, Vitamin B12 deficiency E53.8 [facility] [address] [facility] [id number] [address] [place] [address] Oct, [facility] [address] [facility] [id number] [address] [place] [phone] 09 Oct, [address] [facility] [address] [facility] [id number] [address] [place] [address] 07 Oct, 2015 Essential hypertension I10 ; Type 2 diabetes mellitus without complication E11.9 ; Vitamin B12 deficiency E53.8 ; Acquired hypothyroidism E03.9 ; Iron deficiency anemia due to chronic blood loss D50.[address] [facility] [address] [facility] [id number] [address] [place] [address] 17 Sep, 2015 Essential hypertension I10 ; Vitamin B12 deficiency E53.8 ; Iron deficiency anemia due to chronic blood loss D50.0 ; Type 2 diabetes mellitus without complication E11.9 ; Hyperlipidemia E78.5 and Acquired hypothyroidism E03.9 [facility] [address] [facility] [id number] [address] [place] [address] 08 Sep, 2015 [facility] [address] [facility] [id number] [address] [place] [address] 07 Sep, 2015 [facility] [address] [facility] [id number] [address] [place] [address] [address] Jul, 2015 [facility] [address] [facility] [id number] [address] [place] [address] [address] Jun, 2015 [facility] [address] [facility] [id number] [address] [place] [address] [address] Jun, 2015 [facility] [address] [facility] [id number] [address] [place] [address] Jun, Hyperlipidemia 272.4 ; Iron deficiency anemia 280.9 ; Hypothyroidism 244.9 ; Diabetes mellitus without mention of complication, type II or unspecified type, not stated as uncontrolled 250.[address] [facility] [address] [place] [id number] [address] [place] [phone] Jun, [facility] [address] [address] Jun, [facility] [address] [address] May, Hyperlipidemia 272.4 [facility] [address] [address] May, [facility] [address] [address] May, [facility] [address] [address] Apr, Diabetes mellitus without me ntion of complication, type II or unspecified type, not stated as uncontrolled 250.00 ; Hypothyroidism 244.9 ; Hyperlipidemia 272.4 ; Pain in joint, lower leg 719.46 and RUQ pain 789.01 [facility] [address] [place] [id number] [address] [place] [address] Mar, Sinusitis 473.9 [facility] [address] [address] Mar, [facility] [address] [place] [id number] [address] [place] [address] Mar, [facility] [address] [address] Mar, Hematochezia 578.1 [facility] [address] [place] [id number] [address] [place] [address] February, Sinusitis 473.9 [facility] [address] [address] February, [facility] [address] [id number] [address] [place] [address], [place] [address] 14 Jan, 2015 [facility] [address] [id number] [address] [place] [address], [place] [address] Jan, [facility] [address] [id number] [address] [place] [address], [place] [address] 24 Dec, 2014 [facility] [address] [id number] [address] [place] [address], [place] [address] Dec, [facility] [address] [id number] [address] [place] [address], [place] [address] Dec, [facility] [address] [id number] [address] [place] [address], [place] [address] Dec, [facility] [address] [id number] [address] [place] [address], [place] [address] Dec, [facility] [address] [id number] [address] [place] [address], [place] [address] Dec, [facility] [address] [id number] [address] [place] [address], [place] [address] Dec, [facility] [address] [id number] [address] [place] [address], [place] [address] Dec, [facility] [address] [id number] [address] [place] [address], [place] [address] Dec, [facility] [address] [id number] [address] [place] [address], [place] [address] Dec, [facility] [place] [facility] [address] [id number] [address] [place] [address], [place] [address] Dec, [facility] [address] [id number] [address] [place] [address], [place] [address] Nov, [facility] [address] [id number] [address] [place] [address], [place] [address] Nov, [facility] [address] [id number] [address] [place] [address], [place] [address] Nov, [facility] [address] [id number] [address] [place] [address], [place] [address] Nov, [facility] [address] [id number] [address] [place] [address], [place] [address] Oct, [facility] [address] [id number] [address] [place] [address], [place] [address] Oct, [facility] [address] [id number] [address] [place] [address], [place] [address] Oct, [facility] [address] [id number] [address] [place] [address], [place] [address] Oct, [facility] [address] [id number] [address] [place] [address], [place] [address] Oct, [facility] [address] [id number] [address] [place] [address], [place] [address] Oct, [facility] [address] [id number] [address] [place] [address], [place] [address] Sep, [facility] [address] [id number] [address] [place] [address], [place] [address] Sep, [facility] [address] [id number] [address] [place] [address], [place] [address] Sep, [facility] [address] [id number] [address] [place] [address], [place] [address] Sep, [facility] [address] [id number] [address] [place] [address], [place] [address] Sep, [facility] [address] [id number] [address] [place] [address], [place] [address] Sep, [facility] [address] [id number] [address] [place] [address], [place] [address] Sep, [facility] [address] [id number] [address] [place] [address], [place] [address] Aug, [facility] [address] [id number] [address] [place] [address], [place] [address] Aug, [facility] [address] [id number] [address] [place] [address], [place] [address] Aug, [facility] [address] [id number] [address] [place] [address], [place] [address] Aug, [facility] [address] [id number] [address] [place] [address], [place] [address] Aug, [facility] [address] [id number] [address] [place] [address], [place] [address] Aug, [facility] [address] [id number] [address] [place] [address], [place] [address] Aug, [facility] [address] [id number] [address] [place] [address], [place] [address] Aug, [facility] [address] [id number] [address] [place] [address], [place] [address] Aug, [facility] [address] [id number] [address] [place] [address], [place] [address] Aug, [facility] [address] [id number] [address] [place] [address], [place] [address] Aug, [facility] [address] [id number] [address] [place] [address], [place] [address] Aug, [facility] [address] [id number] [address] [place] [address] Aug, [facility] [address] [id number] [address] [place] [address], [place] [address] Aug, [facility] [address] [id number] [address] [place] [address], [place] [address] Jul, [facility] [address] [id number] [address] [place] [address], [place] [address] Jul, [facility] [address] [id number] [facility] [place] [address] 06 Jul, 2013 [facility] [address] [id number] [address] [place] [address], [place] [address] 06 Jul, 2013 [facility] [address] [id number] [address] [place] [address], [place] [address] 24 Jun, 2013 [facility] [address] [id number] [address] [place] [address], [place] [address] 24 Sep, 2013 [facility] [address] [id number] [address] [place] [address], [place] [address] 23 Jun, 2013 [facility] [address] [id number] [address] [place] [address], [place] [address] 23 Jun, 2013 [facility] [address] [id number] [address] [place] [address], [place] [address] 19 Jun, 2013 [facility] [address] [id number] [address] [place] [address], [place] [address] 19 Jun, 2013 [facility] [address] [id number] [address] [place] [address], [place] [address] 11 Jun, 2013 [facility] [address] [id number] [address] [place] [address], [place] [address] 11 Jun, 2013 [facility] [address] [id number] [address] [place] [address], [place] [address] 11 Jun, 2013 [facility] [address] [id number] [address] [place] [address], [place] [address] 11 Jun, 2013 [facility] [address] [id number] [address] [place] [address], [place] [address] 10 Jun, 2013 [facility] [address] [id number] [address] [place] [address], [place] [address] 10 Jun, 2013 [facility] [address] [id number] [address] [place] [address], [place] [address] 09 Jun, 2013 [facility] [address] [id number] [address] [place] [address], [place] [address] Jun, [facility] [address] [id number] [facility] [place] [address] May, [facility] [address] [id number] [address] [place] [address], [place] [address] May, [facility] [address] [id number] [address] [place] [address], [place] [address] May, [facility] [address] [id number] [address] [place] [address], [place] [address] May, [facility] [address] [id number] [address] [place] [address], [place] [address] May, [facility] [address] [id number] [address] [place] [address], [place] [address] May, [facility] [address] [id number] [address] [place] [address], [place] [address] Apr, [facility] [address] [id number] [address] [place] [address], [place] [address] Apr, [facility] [address] [id number] [address] [place] [address], [place] [address] Apr, [facility] [address] [id number] [address] [place] [address], [place] [address] Apr, [facility] [address] [id number] [address] [place] [address], [place] [address] Apr, [facility] [address] [id number] [address] [place] [address], [place] [address] Apr, [facility] [address] [id number] [address] [place] [address], [place] [address] Apr, [facility] [address] [id number] [address] [place] [address], [place] [address] Apr, [facility] [address] [id number] [address] [place] [address], [place] [address] Apr, [facility] [address] [id number] [address] [place] [address], [place] [address] Apr, [facility] [address] [id number] [address] [place] [address], [place] [address] Apr, [facility] [address] [id number] [address] [place] [address], [place] [address] Mar, [facility] [address] [id number] [address] [place] [address], [place] [address] Mar, [facility] [address] [id number] [address] [place] [address], [place] [address] Mar, [facility] [address] [id number] [address] [place] [address], [place] [address] Mar, [facility] [address] [id number] [address] [place] [address], [place] [address] February, [facility] [address] [id number] [address] [place] [address], [place] [address] February, [facility] [address] [id number] [address] [place] [address], [place] [address] Jan, [facility] [address] [id number] [address] [place] [address], [place] [address] Jan, [address] [id number] Jan, [facility] [address] [id number] [address] [place] [address], [place] [address] Jan, [facility] [address] [id number] [address] [place] [address], [place] [address] Jan, [facility] [address] [id number] [address] [place] [address], [place] [address] Jan, [facility] [address] [id number] [address] [place] [address], [place] [address] Jan, [facility] [address] [id number] [address] [place] [address], [place] [address] Jan, [facility] [address] [id number] [facility] [place] [address] Jan, [facility] [address] [id number] [address] [place] [address], [place] [address] 10 Jan, 2014 [facility] [address] [id number] [address] [place] [address], [place] [address] Jan, [facility] [address] [id number] [address] [place] [address], [place] [address] Jan, [facility] [address] [id number] [address] [place] [address], [place] [address] Jan, [facility] [address] [id number] [address] [place] [address], [place] [address] Jan, [facility] [address] [id number] [address] [place] [address], [place] [address] Jan, [facility] [address] [id number] [address] [place] [address], [place] [address] Jan, [facility] [address] [id number] [address] [place] [address], [place] [address] Jan, [facility] [address] [id number] [address] [place] [address], [place] [address] 18 Dec, 2013 [facility] [address] [id number] [address] [place] [address], [place] [address] 18 Dec, 2013 [facility] [address] [id number] [address] [place] [address], [place] [address] Dec, [facility] [address] [id number] [address] [place] [address], [place] [address] Dec, [facility] [address] [id number] [address] [place] [address], [place] [address] 05 Dec, 2013 [facility] [address] [id number] [address] [place] [address], [place] [address] 05 Dec, 2013 [facility] [address] [id number] [address] [place] [address], [place] [address] Dec, [facility] [address] [id number] [address] [place] [address], [place] [address] Nov, [facility] [address] [id number] [address] [place] [address], [place] [address] Nov, [facility] [address] [id number] [address] [place] [address], [place] [address] Nov, [facility] [address] [id number] [address] [place] [address], [place] [address] Nov, [facility] [address] [id number] [address] [place] [address], [place] [address] Nov, [facility] [address] [id number] [address] [place] [address], [place] [address] Nov, [facility] [address] [id number] [address] [place] [address], [place] [address] Nov, [facility] [address] [id number] [address] [place] [address], [place] [address] Oct, [facility] [address] [id number] [address] [place] [address], [place] [address] Oct, [facility] [address] [id number] [address] [place] [address], [place] [address] Sep, [facility] [address] [id number] [address] [place] [address], [place] [address] Sep, [facility] [address] [id number] [address] [place] [address], [place] [address] Sep, [facility] [address] [id number] [address] [place] [address], [place] [address] Sep, [facility] [address] [id number] [address] [place] [address], [place] [address] Sep, [facility] [address] [id number] [address] [place] [address], [place] [address] Sep, [facility] [address] [id number] [address] [place] [address] Sep, [facility] [address] [id number] [address] [place] [address] Sep, [facility] [address] [id number] [address] [place] [address] Sep, [facility] [address] [id number] [address] [place] [address] Sep, [facility] [address] [id number] [address] [place] [address] Aug, [facility] [address] [id number] [address] [place] [address] Aug, [facility] [address] [id number] [address] [place] [address] Aug, [facility] [address] [id number] [address] [place] [address] Aug, [facility] [address] [id number] [address] [place] [address] Aug, [facility] [address] [id number] [address] [place] [address] Jul, [facility] [address] [id number] [address] [place] [address] Jul, [facility] [address] [id number] [address] [place] [address] Jul, [facility] [address] [id number] [address] [place] [address] Jul, IMMUNIZATIONS No Known Immunizations SOCIAL HISTORY Never Assessed REASON FOR VISIT requesting return call PLAN OF CARE VITAL SIGNS [...] foot surgery to remove heel spur 03/22 Hospitalization History Surgeries
--- OUTSIDE RECORDS SUMMARY | 2020-03-16 12:05 | XMS REPORT ---
Author Author Swathi DORAN [facility] Address [address] [place] [address] Care Team Providers Care Cash Register Mechanic Name Role Phone BRENTON DORAN Unavailable PROBLEMS Type Condition ICD9-CM Code DGM83-YN Code Onset Dates Condition S tatus SNOMED Code Problem Anxiety F41.9 Active 74495941 Problem Chronic tension-type headache, intractable G44.221 Active 076484790 Problem Right upper quadrant pain R10.11 Acti ve 24530308 Problem Vitamin D deficiency E55.9 Active 19182069 Problem Sensorineural hearing loss of right ear H90.41 Active 01990780 Problem BMI 50.0-59.9, adult Z68.43 Active 699087867 Problem Fatty liver K76.0 Active 70293223 7 Problem Frequent falls R29.6 Active 30636 2002 Problem Crohn's disease of both small and large intestin e with complication K50.819 Active 31139921 Problem Type 2 diabetes mellitus with other specified complication E11.69 Active 495207328117 Problem Hyperlipidemia, unspecified E78.5 Ac tive 26492052 Problem MACHUCA (nonalcoholic steatohepatitis) K75.81 Active 117436251 Problem Iron deficiency anemia due to chronic blood loss D 50.0 Active 06370236 Problem Periodic limb movement sleep disorder G47.61 Active 476300547 Problem Obstructive sleep apnea on CPAP G47.33 Active 58223895 Problem Essential hypertension I10 Active 53730422 Problem Hyperlipidemia E78.5 Active 95875 004 Problem Chronic diarrhea K52.9 Active 236 002177 Problem Acquired hypothyroidism E03.9 Active 615474456 Problem Vitamin B12 deficiency E53.8 Active 589167838 Problem Major depressive disorder, recurrent episode, moderate F33.1 Active [id number] ALLERGIES No Information ENCOUNTERS Encounter Location Date Diagnosis [facility] [address] [facility] [id number] [address] [address] May, [facility] [address] [place] [id number] [place] [address] Apr, Nonhealing wound of heel S91 .309A and Body mass index (BMI) of 50- 59.9 in adult Z68.43 [place] [address] [place] [id number] [place] [address] Mar, [place] [address] [address] Mar, BMI 50.0-59.9, adult Z68.43 ; Flank pain R10.9 and Weight loss counseling, encounter for Z71.3 [place] [address] [address] February, [place] [address] [place] [id number] [place] [phone] Jan, [place] [address] [place] [id number] [place] [phone] Jan, [facility] [address] [place] [id number] [place] [phone] Jan, Diarrhea due to staphylococc us A04.8 and Diarrhea, unspecified type R19.7 [place] [id number] [place] [phone] Jan, Acquired hypothyroidism E03. 9 ; Type 2 diabetes mellitus with other specified complication E11.69 ; Hyperlipidemia E78.5 ; Essential hypertension I10 ; Major depressive disorder, recurrent episode, moderate F33.1 and Vitamin D deficiency E55.9 [place] [address] [place] [id number] [place] [address] Jan, Type 2 diabetes mellitus wit h other specified complication E11.69 ; Hyperlipidemia E78.5 ; Essential hypertension I10 ; Acquired hypothyroidism E03.9 ; Major depressive disorder, recurrent episode, moderate F33.1 ; Vitamin D deficiency E55.9 ; Sinus congestion R09.81 and BMI 50.0-59.9, adult Z68.43 [place] [address] [facility] [id number] [address] [place] [phone] Dec, [facility] [address] [place] [id number] [place] [phone] Sep, Encounter for immunization Z 23 [facility] [address] [place] [id number] [place] [phone] Sep, [place] [address] [address] Sep, Vitamin B12 deficiency E53.8 [place] [address] [place] [id number] [place] [address] Aug, [place] [address] [address] Aug, BMI 60.0-69.9, adult Z68.44 and Acute non-recurrent maxillary sinusitis J01.00 [place] [address] [address] 14 Aug, 2017 [place] [address] [place] [id number] [place] [address] Aug, Medicare annual wellness vis it, initial Z00.00 ; Screening for breast cancer Z12.31 ; BMI 40.0-44.9, adult Z68.41 and Acquired hypothyroidism E03.9 [place] [address] [place] [id number] [place] [address] Jul, Actinic keratosis L57.0 [place] [address] [place] [id number] [place] [phone] Jul, Actinic keratosis L57.0 [place] [address] [place] [id number] [place] [address] Jul, Type 2 diabetes mellitus wit h other specified complication E11.69 ; Actinic keratosis L57.0 and Hypothyroidism, unspecified E03.9 [place] [address] [place] [id number] [place] [phone] Jul, [place] [id number] [facility] [id number] [address] [place] [phone] Jul, [place] [address] [place] [id number] [place] [address] Jul, Vitamin B12 deficiency E53.8 [place] [address] [place] [id number] [place] [address] Jun, Acquired hypothyroidism E03. 9 and Chronic tension-type headache, intractable G44.221 [place] [address] [place] [id number] [place] [address] Jun, Back muscle spasm M62.830 an d BMI 50.0-59.9, adult Z68.43 [place] [address] [place] [id number] [place] [address] Jun, Vitamin B12 deficiency E53.8 [place] [address] [place] [id number] [place] [address] Jun, Crohn's disease of both smal l and large intestine with complication K50.819 [place] [address] [address] Jun, Crohn's disease of both smal l and large intestine with complication K50.819 [place] [address] [place] [id number] [place] [address] May, Hyperlipidemia E78.5 ; Anxie ty F41.9 and Essential hypertension I10 [place] [address] [place] [id number] [place] [phone] May, [place] [address] [address] May, Encounter for immunization Z 23 and Vitamin B12 deficiency E53.8 [place] [address] [place] [id number] [place] [phone] May, [place] [address] [place] [id number] [place] [phone] Apr, [facility] [address] [facility] [id number] [address] [place] [phone] Apr, [place] [address] [facility] [id number] [address] [place] [address] Apr, Crohn's disease of both smal l and large intestine with complication K50.819 [place] [address] [facility] [id number] [address] [place] [phone] Apr, Vitamin B12 deficiency E53.8 [place] [address] [facility] [id number] [address] [place] [address] Apr, Crohn's disease of both smal l and large intestine with complication K50.819 and Acute pain of right shoulder M25.511 [place] [address] [facility] [id number] [address] [place] [address] Mar, Type 2 diabetes mellitus wit hout complication E11.9 ; Frequent falls R29.6 and Other chest pain R07.89 [place] [address] [facility] [id number] [address] [place] [phone] Mar, [place] [address] [facility] [id number] [address] [place] [id number] Mar, [place] [address] [facility] [id number] [address] [place] [address] Mar, Type 2 diabetes mellitus wit hout complication E11.9 and Blurry vision, bilateral H53.8 [place] [address] [facility] [id number] [address] [place] [phone] Mar, Vitamin B12 deficiency E53.8 [place] [address] [facility] [id number] [address] [place] [phone] Mar, Crohn's disease of both smal l and large intestine with complication K50.819 [place] [address] [facility] [id number] [address] [place] [address] February, Vitamin B12 deficiency E53.8 [facility] [address] [facility] [id number] [address] [place] [address] Jan, Crohn's disease of both smal l and large intestine with complication K50.819 [facility] [address] [facility] [id number] [address] [place] [phone] Jan, Crohn's disease of both smal l and large intestine with complication K50.819 [facility] [address] [facility] [id number] [address] [place] [address] Jan, Dark brown-colored urine R82 .99 and Acute suppurative otitis media of right ear without spontaneous rupture of tympanic membrane, recurrence not specified H66.001 [facility] [address] [place] [id number] [place] [phone] Jan, Encounter for immunization Z 23 [place] [id number] [place] [phone] Dec, Crohn's disease of both smal l and large intestine with complication K50.819 and Eustachian tube dysfunction, right H69.81 [facility] [id number] [place] [address] Dec, [facility] [address] [place] [id number] [place] [address] Dec, Contusion of right knee, ini tial encounter S80.01XA [place] [address] [place] [id number] [place] [address] Dec, [facility] [address] [place] [id number] [place] [phone] Dec, Acute pain of right knee M25 .561 [facility] [address] [place] [id number] [place] [phone] Dec, Iron deficiency anemia due t o chronic blood loss D50.0 [place] [address] [place] [id number] [place] [phone] Dec, Hyperlipidemia E78.5 ; Type 2 diabetes mellitus without complication E11.9 ; Vitamin B12 deficiency E53.8 ; Essential hypertension I10 ; Obstructive sleep apnea on CPAP G47.33 and Periodic limb movement sleep disorder G47.61 [facility] [address] [facility] [id number] [address] [place] [id number] 22 Nov, 2016 Type 2 diabetes mellitus wit hout complication E11.9 ; Vitamin B12 deficiency E53.8 ; Hyperlipidemia E78.5 ; Essential hypertension I10 ; Obstructive sleep apnea on CPAP G47.33 ; Periodic limb movement sleep disorder G47.61 ; Anxiety F41.9 ; Acquired hypothyroidism E03.9 and Chronic tension-type headache, intractable G44.221 [place] [address] [facility] [id number] [address] [place] [phone] Nov, Crohn's disease of both smal l and large intestine with complication K50.819 [place] [address] [place] [id number] [place] [address] Nov, Vitamin B12 deficiency E53.8 [place] [id number] [facility] [id number] [address] [place] [id number] Oct, [place] [address] [facility] [id number] [address] [place] [id number] Oct, Vitamin B12 deficiency E53.8 [place] [address] [facility] [id number] [address] [place] [phone] Sep, [facility] [address] [place] [id number] [place] [id number] Sep, Vitamin B12 deficiency E53.8 [facility] [address] [facility] [id number] [address] [place] [id number] Aug, [place] [address] [place] [id number] [place] [id number] 14 Aug, 2016 Vitamin B12 deficiency E53.8 [place] [address] [facility] [id number] [address] [place] [phone] Aug, [place] [address] [facility] [id number] [address] [place] [phone] 24 Jul, 2016 Elevated ALT measurement R74 .0 [place] [address] [facility] [id number] [address] [place] [phone] Jul, Hematuria R31.9 ; Acute righ t-sided thoracic back pain M54.6 ; Major depressive disorder, recurrent episode, moderate F33.1 and Elevated ALT measurement R74.0 [place] [address] [facility] [id number] [address] [place] [phone] Jul, [place] [address] [facility] [id number] [address] [place] [phone] Jul, Elevated ALT measurement R74 .0 [place] [address] [facility] [id number] [address] [place] [id number] 14 Jul, 2016 Iron deficiency anemia due t o chronic blood loss D50.0 [place] [address] [facility] [id number] [address] [place] [id number] 14 Jul, 2016 Type 2 diabetes mellitus wit hout complication E11.9 ; Acquired hypothyroidism E03.9 ; Iron deficiency anemia due to chronic blood loss D50.0 ; Hyperlipidemia E78.5 and Essential hypertension I10 [place] [address] [place] [id number] [place] [id number] 26 Jun, 2016 [place] [address] [place] [id number] [place] [id number] 20 Jun, 2016 Vitamin B12 deficiency E53.8 [place] [address] [facility] [id number] [address] [place] [phone] 16 Jun, 2016 Type 2 diabetes mellitus wit hout complication E11.9 ; Acquired hypothyroidism E03.9 ; Iron deficiency anemia due to chronic blood loss D50.0 ; Hyperlipidemia E78.5 ; Essential hypertension I10 ; Chronic tension-type headache, intractable G44.221 ; Pulsatile tinnitus, bilateral H93.13 ; Obstructive sleep apnea on CPAP G47.33 and Major depressive disorder, recurrent episode, moderate F33.1 [place] [address] [facility] [id number] [address] [place] [phone] 16 May, 2016 Vitamin B12 deficiency E53.8 [facility] [address] [facility] [id number] [address] [place] [phone] 08 May, 2016 [facility] [address] [facility] [id number] [address] [place] [phone] Apr, Vitamin B12 deficiency E53.8 [facility] [address] [facility] [id number] [address] [place] [phone] Apr, [facility] [address] [facility] [id number] [address] [place] [id number] Mar, Chronic tension-type headach e, intractable G44.221 and Major depressive disorder, recurrent episode, moderate F33.1 [facility] [address] [facility] [id number] [address] [place] [phone] 14 Mar, 2016 Vitamin B12 deficiency E53.8 [facility] [address] [facility] [id number] [address] [place] [phone] February, [facility] [address] [place] [id number] [place] [phone] February, Vitamin B12 deficiency E53.8 [facility] [address] [place] [id number] [place] [phone] February, [facility] [address] [place] [id number] [place] [phone] Jan, Dysuria R30.0 [facility] [address] [place] [id number] [place] [id number] 22 Jan, 2016 Type 2 diabetes mellitus wit hout complication E11.9 and Essential hypertension I10 [facility] [address] [place] [id number] [place] [id number] 15 Jan, 2016 Chronic diarrhea K52.9 [facility] [address] [place] [id number] [place] [id number] 13 Jan, 2016 [facility] [address] [place] [id number] [place] [phone] Jan, Chronic diarrhea K52.9 [facility] [address] [facility] [id number] [address] [place] [phone] Jan, [facility] [address] [facility] [id number] [address] [place] [phone] Jan, Dysuria R30.0 [facility] [address] [facility] [id number] [address] [place] [phone] Jan, Vitamin B12 deficiency E53.8 [facility] [address] [facility] [id number] [address] [place] [phone] 07 Jan, 2016 Dysuria R30.0 and Iron defic iency anemia due to chronic blood loss D50.0 [facility] [address] [facility] [id number] [address] [place] [id number] 05 Jan, 2016 Dysuria R30.0 [facility] [address] [facility] [id number] [address] [place] [phone] Jan, [facility] [address] [facility] [id number] [address] [place] [id number] 15 Dec, 2015 [facility] [address] [place] [id number] [place] [phone] Dec, Iron deficiency anemia due t o chronic blood loss D50.0 [facility] [address] [facility] [id number] [address] [place] [phone] 10 Dec, 2015 Dysuria R30.0 ; Fatigue R53. 83 ; Hyperlipidemia E78.5 and Diarrhea R19.7 [facility] [address] [facility] [id number] [address] [place] [phone] Dec, [facility] [address] [facility] [id number] [address] [place] [phone] 02 Dec, 2015 [facility] [address] [facility] [id number] [address] [place] [phone] 10 Nov, 2015 Vitamin B12 deficiency E53.8 [facility] [address] [facility] [id number] [address] [place] [id number] 13 Oct, 2015 Vitamin B12 deficiency E53.8 [facility] [address] [facility] [id number] [address] [place] [phone] Oct, [facility] [address] [facility] [id number] [address] [place] [id number] 09 Oct, 2015 Headache R51 [facility] [id number] [place] [phone] 07 Oct, 2015 Essential hypertension I10 ; Type 2 diabetes mellitus without complication E11.9 ; Vitamin B12 deficiency E53.8 ; Acquired hypothyroidism E03.9 ; Iron deficiency anemia due to chronic blood loss D50.0 and Hyperlipidemia E78.5 [place] [address] [place] [id number] [place] [id number] 17 Sep, 2015 Essential hypertension I10 ; Vitamin B12 deficiency E53.8 ; Iron deficiency anemia due to chronic blood loss D50.0 ; Type 2 diabetes mellitus without complication E11.9 ; Hyperlipidemia E78.5 and Acquired hypothyroidism E03.9 [facility] [address] [place] [phone] Sep, [place] [id number] [place] [phone] Sep, [facility] [address] [place] [id number] [place] [phone] Jul, [facility] [address] [place] [id number] [place] [phone] Jun, [facility] [address] [place] [id number] [place] [phone] Jun, [place] [address] [place] [id number] [place] [phone] 15 Jun, 2015 Hyperlipidemia 272.4 ; Iron deficiency anemia 280.9 ; Hypothyroidism 244.9 ; Diabetes mellitus without mention of complication, type II or unspecified type, not stated as uncontrolled 250.00 and Hypertension 401.9 [facility] [address] [facility] [id number] [address] [place] [phone] Jun, [facility] [address] [facility] [id number] [address] [place] [phone] Jun, [facility] [address] [facility] [id number] [address] [place] [phone] May, Hyperlipidemia 272.4 [facility] [address] [facility] [id number] [address] [place] [id number] May, [facility] [address] [facility] [id number] [address] [place] [phone] May, [facility] [address] [facility] [id number] [place] [phone] Apr, Diabetes mellitus without me ntion of complication, type II or unspecified type, not stated as uncontrolled 250.00 ; Hypothyroidism 244.9 ; Hyperlipidemia 272.4 ; Pain in joint, lower leg 719.46 and RUQ pain 789.01 [facility] [address] [facility] [id number] [address] [place] [id number] Mar, Sinusitis 473.9 [facility] [address] [place] [id number] [place] [phone] Mar, [facility] [address] [place] [id number] [place] [phone] Mar, [facility] [address] [facility] [id number] [address] [place] [phone] Mar, Hematochezia 578.1 [facility] [address] [facility] [id number] [address] [place] [phone] February, Sinusitis 473.9 [facility] [address] [facility] [id number] [address] [place] [id number] February, [facility] [address] [facility] [id number] [address] [place] [id number] Jan, [facility] [address] [facility] [id number] [address] [place] [id number] Jan, [facility] [address] [id number] [address] [place] [address], [place] [phone] Dec, [facility] [address] [id number] [address] [place] [address], [place] [id number] Dec, [facility] [address] [id number] [address] [place] [address], [place] [id number] Dec, [facility] [address] [id number] [address] [place] [address], [place] [phone] Dec, [facility] [address] [id number] [address] [place] [address], [place] [phone] Dec, [facility] [address] [id number] [address] [place] [address], [place] [phone] Dec, [facility] [address] [id number] [address] [place] [address], [place] [phone] Dec, [facility] [address] [id number] [address] [place] [address], [place] [phone] Dec, [facility] [address] [id number] [address] [place] [address], [place] [id number] Dec, [facility] [address] [id number] [address] [place] [address], [place] [address] Dec, [facility] [address] [id number] [address] [place] [address], [place] [address] Dec, [facility] [address] [id number] [address] [place] [address], [place] [address] Nov, [facility] [address] [id number] [address] [place] [address], [place] [address] Nov, [facility] [address] [id number] [address] [place] [address], [place] [address] Nov, [facility] [address] [id number] [address] [place] [address] Nov, [facility] [address] [id number] [address] [place] [address], [place] [address] Oct, [facility] [address] [id number] [address] [place] [address], [place] [address] Oct, [facility] [address] [id number] [address] [place] [address], [place] [address] Oct, [facility] [address] [id number] [address] [place] [address], [place] [address] Oct, [facility] [address] [id number] [address] [place] [address], [place] [address] Oct, [facility] [address] [id number] [address] [place] [address], [place] [address] Oct, [facility] [address] [id number] [address] [place] [address], [place] [address] Sep, [facility] [address] [id number] [address] [place] [address], [place] [address] Sep, [facility] [address] [id number] [address] [place] [address], [place] [address] Sep, [facility] [address] [id number] [address] [place] [address], [place] [address] Sep, [facility] [address] [id number] [address] [place] [address], [place] [address] Sep, [facility] [address] [id number] [address] [place] [address], [place] [address] Sep, [facility] [address] [id number] [address] [place] [address], [place] [address] Sep, [facility] [address] [id number] [address] [place] [address], [place] [address] Aug, [facility] [address] [id number] [address] [place] [address], [place] [address] Aug, [facility] [address] [id number] [address] [place] [address], [place] [address] Aug, [facility] [address] [id number] [address] [place] [address], [place] [address] Aug, [facility] [address] [id number] [address] [place] [address], [place] [address] Aug, [facility] [address] [id number] [address] [place] [address], [place] [address] Aug, [facility] [address] [id number] [address] [place] [phone] Aug, [facility] [address] [id number] [address] [place] [address], [place] [address] Aug, [facility] [address] [id number] [address] [place] [address], [place] [address] Aug, [facility] [address] [id number] [address] [place] [address], [place] [address] Aug, [facility] [address] [id number] [address] [place] [address], [place] [address] Aug, [facility] [address] [id number] [address] [place] [address], [place] [address] Aug, [facility] [address] [id number] [address] [place] [address], [place] [address] Aug, [facility] [address] [id number] [address] [place] [address], [place] [address] Aug, [facility] [address] [id number] [address] [place] [address] Jul, [facility] [address] [id number] [address] [place] [address], [place] [address] Jul, [facility] [address] [id number] [address] [place] [address], [place] [address] Jul, [facility] [address] [id number] [address] [place] [address], [place] [address] Jul, [facility] [address] [id number] [facility] [place] [address] 24 Sep, 2013 [facility] [address] [id number] [address] [place] [address], [place] [address] 24 Sep, 2013 [facility] [address] [id number] [facility] [place] [address] 23 Sep, 2013 [facility] [address] [id number] [address] [place] [address], [place] [address] 23 Sep, 2013 [facility] [address] [id number] [address] [place] [address], [place] [address] 19 Jun, 2013 [facility] [address] [id number] [address] [place] [address], [place] [address] 19 Jun, 2013 [facility] [address] [id number] [address] [place] [address], [place] [address] 11 Jun, 2013 [facility] [address] [id number] [address] [place] [address], [place] [address] 11 Jun, 2013 [facility] [address] [id number] [address] [place] [address], [place] [address] 11 Jun, 2013 [facility] [address] [id number] [address] [place] [address], [place] [address] 11 Jun, 2013 [facility] [address] [id number] [address] [place] [address], [place] [address] 10 Jun, 2013 [facility] [address] [id number] [address] [place] [address], [place] [address] 10 Jun, 2013 [facility] [address] [id number] [address] [place] [address], [place] [address] 09 Jun, 2013 [facility] [address] [id number] [address] [place] [address], [place] [address] 09 Jun, 2013 [facility] [address] [id number] [address] [place] [address], [place] [address] 14 May, 2014 [facility] [address] [id number] [address] [place] [address], [place] [address] May, [facility] [address] [id number] [facility] [place] [address] May, [facility] [address] [id number] [address] [place] [address], [place] [address] May, [facility] [address] [id number] [address] [place] [address], [place] [address] May, [facility] [address] [id number] [address] [place] [address], [place] [address] May, [facility] [address] [id number] [address] [place] [address], [place] [address] Apr, [facility] [address] [id number] [address] [place] [address], [place] [address] Apr, [facility] [address] [id number] [address] [place] [address], [place] [address] Apr, [facility] [address] [id number] [address] [place] [address], [place] [address] Apr, [facility] [address] [id number] [address] [place] [address], [place] [address] Apr, [facility] [address] [id number] [address] [place] [address], [place] [address] Apr, [facility] [address] [id number] [address] [place] [address], [place] [address] Apr, [facility] [address] [id number] [address] [place] [address], [place] [address] Apr, [facility] [address] [id number] [address] [place] [address], [place] [address] Apr, [facility] [address] [id number] [address] [place] [address], [place] [address] Apr, [facility] [address] [id number] [address] [place] [address], [place] [address] Apr, [facility] [address] [id number] [address] [place] [address], [place] [address] Mar, [facility] [address] [id number] [address] [place] [address], [place] [address] Mar, [facility] [address] [id number] [address] [place] [address], [place] [address] Mar, [facility] [address] [id number] [address] [place] [address], [place] [address] Mar, [facility] [address] [id number] [address] [place] [address], [place] [address] February, [facility] [address] [id number] [address] [place] [address], [place] [address] February, [facility] [address] [id number] [address] [place] [address], [place] [address] Jan, [facility] [address] [id number] [address] [place] [address], [place] [address] Jan, [address] [id number] Jan, [facility] [address] [id number] [address] [place] [address], [place] [address] Jan, [facility] [address] [id number] [address] [place] [address], [place] [address] Jan, [facility] [address] [id number] [address] [place] [address], [place] [address] Jan, [facility] [address] [id number] [address] [place] [address], [place] [address] Jan, [facility] [address] [id number] [address] [place] [address], [place] [address] Jan, [facility] [address] [id number] [address] [place] [address], [place] [address] Jan, [facility] [address] [id number] [address] [place] [address], [place] [address] Jan, [facility] [address] [id number] [facility] [place] [address] 10 Jan, 2014 [facility] [address] [id number] [address] [place] [address], [place] [address] Jan, [facility] [address] [id number] [address] [place] [address], [place] [address] Jan, [facility] [address] [id number] [address] [place] [address], [place] [address] Jan, [facility] [address] [id number] [address] [place] [address], [place] [address] Jan, [facility] [address] [id number] [address] [place] [address], [place] [address] Jan, [facility] [address] [id number] [address] [place] [address], [place] [address] Jan, [facility] [address] [id number] [address] [place] [address], [place] [address] Dec, [facility] [address] [id number] [address] [place] [address], [place] [address] Dec, [facility] [address] [id number] [address] [place] [address], [place] [address] Dec, [facility] [address] [id number] [address] [place] [address], [place] [address] Dec, [facility] [address] [id number] [address] [place] [address], [place] [address] Dec, [facility] [address] [id number] [address] [place] [address], [place] [address] Dec, [facility] [address] [id number] [address] [place] [address], [place] [address] Dec, [facility] [address] [id number] [address] [place] [address], [place] [address] Nov, [facility] [address] [id number] [address] [place] [address], [place] [address] Nov, [facility] [address] [id number] [address] [place] [address], [place] [address] Nov, [facility] [address] [id number] [address] [place] [address], [place] [address] Nov, [facility] [address] [id number] [address] [place] [address], [place] [address] Nov, [facility] [address] [id number] [address] [place] [address], [place] [address] Nov, [facility] [address] [id number] [address] [place] [address], [place] [address] Nov, [facility] [address] [id number] [address] [place] [address], [place] [address] Oct, [facility] [address] [id number] [address] [place] [address], [place] [address] Oct, [facility] [address] [id number] [address] [place] [address], [place] [address] Sep, [facility] [address] [id number] [address] [place] [address], [place] [address] Sep, [facility] [address] [id number] [address] [place] [address], [place] [address] Sep, [facility] [address] [id number] [address] [place] [address], [place] [address] Sep, [facility] [address] [id number] [address] [place] [address], [place] [address] Sep, [facility] [address] [id number] [address] [place] [address], [place] [address] Sep, [facility] [address] [id number] [address] [place] [address], [place] [address] Sep, [facility] [address] [id number] [address] [place] [address], [place] [address] Sep, [facility] [address] [id number] [address] [place] [address] Sep, [facility] [address] [id number] [address] [place] [address] Sep, [facility] [address] [id number] [address] [place] [address] Aug, [facility] [address] [id number] [address] [place] [address] Aug, [facility] [address] [id number] [address] [place] [address] Aug, [facility] [address] [id number] [address] [place] [address] Aug, [facility] [address] [id number] [address] [place] [address] Aug, [facility] [address] [id number] [address] [place] [address] Jul, [facility] [address] [id number] [address] [place] [address] Jul, [facility] [address] [id number] [address] [place] [phone] Jul, [facility] [address] [id number] [address] [place] [phone] Jul, IMMUNIZATIONS No Known Immunizations SOCIAL HISTORY Never Assessed REASON FOR VISIT Eye Exam PLAN OF CARE VITAL SIGNS MEDICATIONS Unknown [...]
--- OUTSIDE RECORDS SUMMARY | 2020-03-16 12:05 | XMS REPORT ---
Author Author Swathi DORAN [facility] Address [address] [place] [address] Care Team Providers Care Group President Name Role Phone BRENTON DORAN Unavailable PROBLEMS Type Condition ICD9-CM Code [id number] Code Onset Dates Condition S tatus SNOMED Code Problem Anxiety F41.9 Active 24231150 Problem Chronic tension-type headache, intractable G44.221 Active 858678240 Problem Right upper quadrant pain R10.11 Acti ve 04595879 Problem Vitamin D deficiency E55.9 Active 64846076 Problem Sensorineural hearing loss of right ear H90.41 Active 46945675 Problem BMI 50.0-59.9, adult Z68.43 Active 378792044 Problem Fatty liver K76.0 Active 35939979 7 Problem Frequent falls R29.6 Active 44236 2002 Problem Crohn's disease of both small and large intestin e with complication K50.819 Active 23488544 Problem Type 2 diabetes mellitus with other specified complication E11.69 Active 738022766657 Problem Hyperlipidemia, unspecified E78.5 Ac tive 45399872 Problem MACHUCA (nonalcoholic steatohepatitis) K75.81 Active 271747071 Problem Iron deficiency anemia due to chronic blood loss D 50.0 Active 03568105 Problem Periodic limb movement sleep disorder G47.61 Active 271225953 Problem Obstructive sleep apnea on CPAP G47.33 Active 40276732 Problem Essential hypertension I10 Active 56190829 Problem Hyperlipidemia E78.5 Active 69321 004 Problem Chronic diarrhea K52.9 Active 236 462625 Problem Acquired hypothyroidism E03.9 Active 367398672 Problem Vitamin B12 deficiency E53.8 Active 254018375 Problem Major depressive disorder, recurrent episode, moderate F33.1 Active 771465274 ALLERGIES No Information ENCOUNTERS Encounter Location Date Diagnosis [facility] [address] [facility] [id number] [place] [address] Jul, [facility] [address] [facility] [id number] [address] [place] [address] May, [facility] [address] [facility] [id number] [address] [place] [address] May, [facility] [address] [facility] [id number] [address] [place] [address] Apr, Nonhealing wound of heel S91 .309A and Body mass index (BMI) of 50- 59.[address] [facility] [address] [facility] [id number] [address] [place] [address] Mar, [facility] [address] [facility] [id number] [address] [place] [address] Mar, BMI 50.0-59.9, adult Z68.43 ; Flank pain R10.9 and Weight loss counseling, encounter for Z71.3 [place] [address] [facility] [id number] [address] [place] [address] February, [facility] [address] [facility] [id number] [address] [place] [address] Jan, [facility] [address] [facility] [id number] [address] [place] [address] Jan, [facility] [address] [facility] [id number] [address] [place] [address] Jan, Diarrhea due to staphylococc us A04.8 and Diarrhea, unspecified type R19.7 [facility] [address] [facility] [id number] [address] [place] [address] Jan, Acquired hypothyroidism E03. 9 ; Type 2 diabetes mellitus with other specified complication E11.69 ; Hyperlipidemia E78.5 ; Essential hypertension I10 ; Major depressive disorder, recurrent episode, moderate F33.1 and Vitamin D deficiency E55.9 [facility] [address] [facility] [id number] [address] [place] [address] Jan, Type 2 diabetes mellitus wit h other specified complication E11.69 ; Hyperlipidemia E78.5 ; Essential hypertension I10 ; Acquired hypothyroidism E03.9 ; Major depressive disorder, recurrent episode, moderate F33.1 ; Vitamin D deficiency E55.9 ; Sinus congestion R09.81 and BMI 50.0-59.9, adult Z68.43 [place] [address] [place] [id number] [address] [place] [address] Dec, [place] [address] [address] Sep, Encounter for immunization Z 23 [place] [address] [address] Sep, [place] [address] [address] Sep, Vitamin B12 deficiency E53.8 [place] [address] [address] Aug, [place] [address] [address] Aug, BMI 60.0-69.9, adult Z68.44 and Acute non-recurrent maxillary sinusitis J01.00 [place] [address] [address] 14 Aug, 2017 [place] [address] [address] Aug, Medicare annual wellness vis it, initial Z00.00 ; Screening for breast cancer Z12.31 ; BMI 40.0-44.9, adult Z68.41 and Acquired hypothyroidism E03.9 [place] [address] [address] Jul, Actinic keratosis L57.0 [place] [address] [place] [id number] [place] [address] Jul, Actinic keratosis L57.0 [place] [address] [place] [id number] [place] [address] Jul, Type 2 diabetes mellitus wit h other specified complication E11.69 ; Actinic keratosis L57.0 and Hypothyroidism, unspecified E03.9 [place] [address] [place] [id number] [address] [place] [address] Jul, [place] [address] [place] [id number] [place] [address] Jul, [place] [address] [address] Jul, Vitamin B12 deficiency E53.8 [place] [address] [address] Jun, Acquired hypothyroidism E03. 9 and Chronic tension-type headache, intractable G44.221 [place] [address] [address] Jun, Back muscle spasm M62.830 an d BMI 50.0-59.9, adult Z68.43 [place] [address] [address] Jun, Vitamin B12 deficiency E53.8 [place] [address] [address] Jun, Crohn's disease of both smal l and large intestine with complication K50.819 [place] [address] [address] Jun, Crohn's disease of both smal l and large intestine with complication K50.819 [place] [address] [place] [id number] [address] [place] [address] May, Hyperlipidemia E78.5 ; Anxie ty F41.9 and Essential hypertension I10 [place] [address] [place] [id number] [address] [place] [address] May, [place] [address] [address] May, Encounter for immunization Z 23 and Vitamin B12 deficiency E53.8 [facility] [address] [id number] [address] [place] [address] May, [facility] [address] [id number] [address] [place] [address] Apr, [facility] [address] [id number] [address] [place] [address] Apr, [facility] [address] [facility] [id number] [address] [place] [address] Apr, Crohn's disease of both smal l and large intestine with complication K50.819 [place] [address] [id number] [address] [place] [address] Apr, Vitamin B12 deficiency E53.8 [place] [address] [id number] [address] [place] [address] Apr, Crohn's disease of both smal l and large intestine with complication K50.819 and Acute pain of right shoulder M25.511 [place] [address] [id number] [address] [place] [address] Mar, Type 2 diabetes mellitus wit hout complication E11.9 ; Frequent falls R29.6 and Other chest pain R07.89 [place] [address] [facility] [id number] [address] [place] [address] Mar, [place] [address] [id number] [address] [place] [address] Mar, [place] [address] [facility] [id number] [address] [place] [address] Mar, Type 2 diabetes mellitus wit hout complication E11.9 and Blurry vision, bilateral H53.8 [place] [address] [id number] [address] [place] [address] Mar, Vitamin B12 deficiency E53.8 [place] [address] [facility] [id number] [address] [place] [address] Mar, Crohn's disease of both smal l and large intestine with complication K50.819 [facility] [address] [facility] [id number] [address] [place] [address] February, Vitamin B12 deficiency E53.8 [facility] [address] [place] [id number] [address] [place] [address] Jan, Crohn's disease of both smal l and large intestine with complication K50.819 [facility] [address] [place] [id number] [address] [place] [address] Jan, Crohn's disease of both smal l and large intestine with complication K50.819 [facility] [address] [place] [id number] [address] [place] [address] Jan, Dark brown-colored urine R82 .99 and Acute suppurative otitis media of right ear without spontaneous rupture of tympanic membrane, recurrence not specified H66.001 [place] [address] [place] [address] Jan, Encounter for immunization Z 23 [place] [address] [address] Dec, Crohn's disease of both smal l and large intestine with complication K50.819 and Eustachian tube dysfunction, right H69.81 [place] [address] [place] [address] Dec, [place] [address] [place] [id number] [address] [place] [address] Dec, Contusion of right knee, ini tial encounter S80.01XA [place] [address] [place] [id number] [address] [place] [address] Dec, [place] [address] [place] [id number] [address] [place] [address] Dec, Acute pain of right knee M25 .561 [place] [address] [place] [address] [place] [address] Dec, Iron deficiency anemia due t o chronic blood loss D50.0 [place] [address] [place] [id number] [address] [place] [address] Dec, Hyperlipidemia E78.5 ; Type 2 diabetes mellitus without complication E11.9 ; Vitamin B12 deficiency E53.8 ; Essential hypertension I10 ; Obstructive sleep apnea on CPAP G47.33 and Periodic limb movement sleep disorder G47.61 [place] [address] [place] [address] Nov, Type 2 diabetes mellitus wit hout complication E11.9 ; Vitamin B12 deficiency E53.8 ; Hyperlipidemia E78.5 ; Essential hypertension I10 ; Obstructive sleep apnea on CPAP G47.33 ; Periodic limb movement sleep disorder G47.61 ; Anxiety F41.9 ; Acquired hypothyroidism E03.9 and Chronic tension-type headache, intractable G44.221 [place] [address] [place] [address] Nov, Crohn's disease of both smal l and large intestine with complication K50.819 [place] [address] [place] [address] Nov, Vitamin B12 deficiency E53.8 [place] [address] [place] [id number] [address] [place] [address] Oct, [place] [address] [place] [address] Oct, Vitamin B12 deficiency E53.8 [place] [address] [place] [id number] [address] [place] [address] Sep, [place] [address] [place] [address] Sep, Vitamin B12 deficiency E53.8 [place] [address] [place] [id number] [address] [place] [address] Aug, [place] [address] [place] [address] [place] [address] 14 Aug, 2016 [address]8 [facility] [address] [facility] [id number] [address] [place] [address] 10 Aug, 2016 [facility] [address] [facility] [id number] [address] [place] [address] 24 Jul, 2016 Elevated ALT measurement R74 .0 [facility] [address] [facility] [id number] [address] [place] [address] Jul, Hematuria R31.9 ; Acute righ t-sided thoracic back pain M54.6 ; Major depressive disorder, recurrent episode, moderate F33.1 and Elevated ALT measurement R74.0 [facility] [address] [facility] [id number] [address] [place] [address] Jul, [facility] [address] [facility] [id number] [address] [place] [address] Jul, Elevated ALT measurement R74 .0 [facility] [address] [facility] [id number] [address] [place] [address] Jul, Iron deficiency anemia due t o chronic blood loss D50.0 [facility] [address] [facility] [id number] [address] [place] [address] 14 Jul, 2016 Type 2 diabetes mellitus wit hout complication E11.9 ; Acquired hypothyroidism E03.9 ; Iron deficiency anemia due to chronic blood loss D50.0 ; Hyperlipidemia E78.5 and Essential hypertension I10 [facility] [address] [facility] [id number] [address] [place] [address] [address] Jun, [address] [facility] [address] [id number] [address] [place] [address] 20 Jun, 2016 Vitamin B12 [address] E53.8 [facility] [address] [facility] [id number] [address] [place] [address] 16 Jun, 2016 Type 2 diabetes mellitus wit hout complication E11.9 ; Acquired hypothyroidism E03.9 ; Iron deficiency anemia due to chronic blood loss D50.0 ; Hyperlipidemia E78.5 ; Essential hypertension I10 ; Chronic tension-type headache, intractable G44.221 ; Pulsatile tinnitus, bilateral H93.13 ; Obstructive sleep apnea on CPAP G47.33 and Major depressive disorder, recurrent episode, moderate F33.1 [facility] [address] [facility] [id number] [address] [place] [address] 16 May, 2016 Vitamin B12 [address].8 [facility] [address] [facility] [id number] [address] [place] [address] May, [facility] [address] [facility] [id number] [address] [place] [address] Apr, Vitamin B12 deficiency E53.8 [facility] [address] [facility] [id number] [address] [place] [address] Apr, [facility] [address] [facility] [id number] [address] [place] [address] Mar, Chronic tension-type headach e, intractable G44.221 and Major depressive disorder, recurrent episode, moderate F33.1 [facility] [address] [facility] [id number] [address] [place] [address] Mar, Vitamin B12 deficiency E53.8 [facility] [address] [facility] [id number] [address] [place] [address] February, [facility] [address] [facility] [id number] [address] [place] [address] February, Vitamin B12 deficiency E53.8 [facility] [address] [facility] [id number] [address] [place] [address] February, [facility] [address] [facility] [id number] [address] [place] [address] Jan, Dysuria R30.0 [facility] [address] [facility] [id number] [address] [place] [address] Jan, Type 2 diabetes mellitus wit hout complication E11.9 and Essential hypertension I10 [facility] [address] [facility] [id number] [address] [place] [address] 15 Jan, [address] [facility] [address] [id number] [address] [place] [address] [address], [address] [facility] [address] [facility] [id number] [address] [place] [address] 12 Jan, [address] [facility] [address] [facility] [id number] [address] [place] [address] Jan, [facility] [address] [facility] [id number] [address] [place] [address] Jan, Dysuria R30.0 [facility] [address] [facility] [id number] [address] [place] [address] 07 Jan, 2016 [address]12 [address]8 [facility] [address] [facility] [id number] [address] [place] [address] 07 Jan, 2016 Dysuria R30.0 and Iron defic iency anemia due to chronic blood loss D50.0 [facility] [address] [facility] [id number] [address] [place] [address] 05 Jan, [address] [facility] [address] [facility] [id number] [address] [place] [address] [address] Jan, 2016 [facility] [address] [facility] [id number] [address] [place] [address] 15 Dec, 2015 [facility] [address] [facility] [id number] [address] [place] [address] Dec, Iron deficiency anemia due t o chronic blood loss D50.0 [facility] [address] [facility] [id number] [address] [place] [address] 10 Dec, 2015 Dysuria R30.0 ; Fatigue R53. 83 ; Hyperlipidemia E78.[address] [facility] [address] [facility] [id number] [address] [place] [address] [address], 2015 [facility] [address] [facility] [id number] [address] [place] [address] Dec, [facility] [address] [facility] [id number] [address] [place] [address] Nov, Vitamin B12 deficiency E53.8 [facility] [address] [facility] [id number] [address] [place] [address] Oct, Vitamin B12 deficiency E53.8 [facility] [address] [facility] [id number] [address] [place] [address] Oct, [facility] [address] [facility] [id number] [address] [place] [address] 09 Oct, [address] [facility] [address] [facility] [id number] [address] [place] [address] 07 Oct, 2015 Essential hypertension I10 ; Type 2 diabetes mellitus without complication E11.9 ; Vitamin B12 deficiency E53.8 ; Acquired hypothyroidism E03.9 ; Iron deficiency anemia due to chronic blood loss D50.[address] [facility] [address] [facility] [id number] [address] [place] [address] 17 Sep, 2015 Essential hypertension I10 ; Vitamin B12 deficiency E53.8 ; Iron deficiency anemia due to chronic blood loss D50.0 ; Type 2 diabetes mellitus without complication E11.9 ; Hyperlipidemia E78.5 and Acquired hypothyroidism E03.9 [facility] [address] [facility] [id number] [address] [place] [address] 08 Sep, 2015 [facility] [address] [facility] [id number] [address] [place] [address] 07 Sep, 2015 [facility] [address] [facility] [id number] [address] [place] [address] [address] Jul, 2015 [facility] [address] [facility] [id number] [address] [place] [address] [address], 2015 [facility] [address] [facility] [id number] [address] [place] [address] [address], 2015 [facility] [address] [facility] [id number] [address] [place] [address] Jun, Hyperlipidemia 272.4 ; Iron deficiency anemia 280.9 ; Hypothyroidism 244.9 ; Diabetes mellitus without mention of complication, type II or unspecified type, not stated as uncontrolled 250.[address] [facility] [address] [place] [id number] [address] [place] [address] Jun, [facility] [address] [address] Jun, [facility] [address] [address] May, Hyperlipidemia 272.4 [facility] [address] [address] May, [facility] [address] [address] May, [facility] [address] [address] Apr, Diabetes mellitus without me ntion of complication, type II or unspecified type, not stated as uncontrolled 250.00 ; Hypothyroidism 244.9 ; Hyperlipidemia 272.4 ; Pain in joint, lower leg 719.46 [address] RUQ pain 789.01 [facility] [address] [place] [id number] [address] [place] [address] Mar, Sinusitis 473.9 [facility] [address] [address] Mar, [facility] [address] [place] [id number] [address] [place] [address] Mar, [facility] [address] [address] Mar, Hematochezia 578.1 [facility] [address] [place] [id number] [address] [place] [address] February, Sinusitis 473.9 [facility] [address] [address] February, [facility] [address] [id number] [address] [place] [address], [place] [address] 14 Jan, 2015 [facility] [address] [id number] [address] [place] [address], [place] [address] Jan, [facility] [address] [id number] [address] [place] [address], [place] [address] 24 Dec, 2014 [facility] [address] [id number] [address] [place] [address], [place] [address] Dec, [facility] [address] [id number] [address] [place] [address], [place] [address] Dec, [facility] [address] [id number] [address] [place] [address], [place] [address] Dec, [facility] [address] [id number] [address] [place] [address], [place] [address] Dec, [facility] [address] [id number] [address] [place] [address], [place] [address] Dec, [facility] [address] [id number] [address] [place] [address], [place] [address] Dec, [facility] [address] [id number] [address] [place] [address], [place] [address] Dec, [facility] [address] [id number] [address] [place] [address], [place] [address] Dec, [facility] [address] [id number] [address] [place] [address], [place] [address] Dec, [facility] [place] [facility] [address] [id number] [address] [place] [address], [place] [address] Dec, [facility] [address] [id number] [address] [place] [address], [place] [address] Nov, [facility] [address] [id number] [address] [place] [address], [place] [address] Nov, [facility] [address] [id number] [address] [place] [address], [place] [address] Nov, [facility] [address] [id number] [address] [place] [address], [place] [address] Nov, [facility] [address] [id number] [address] [place] [address], [place] [address] Oct, [facility] [address] [id number] [address] [place] [address], [place] [address] Oct, [facility] [address] [id number] [address] [place] [address], [place] [address] Oct, [facility] [address] [id number] [address] [place] [address], [place] [address] Oct, [facility] [address] [id number] [address] [place] [address], [place] [address] Oct, [facility] [address] [id number] [address] [place] [address], [place] [address] Oct, [facility] [address] [id number] [address] [place] [address], [place] [address] Sep, [facility] [address] [id number] [address] [place] [address], [place] [address] Sep, [facility] [address] [id number] [address] [place] [address], [place] [address] Sep, [facility] [address] [id number] [address] [place] [address], [place] [address] Sep, [facility] [address] [id number] [address] [place] [address], [place] [address] Sep, [facility] [address] [id number] [address] [place] [address], [place] [address] Sep, [facility] [address] [id number] [address] [place] [address], [place] [address] Sep, [facility] [address] [id number] [address] [place] [address], [place] [address] Aug, [facility] [address] [id number] [address] [place] [address], [place] [address] Aug, [facility] [address] [id number] [address] [place] [address], [place] [address] Aug, [facility] [address] [id number] [address] [place] [address], [place] [address] Aug, [facility] [address] [id number] [address] [place] [address], [place] [address] Aug, [facility] [address] [id number] [address] [place] [address], [place] [address] Aug, [facility] [address] [id number] [address] [place] [address], [place] [address] Aug, [facility] [address] [id number] [address] [place] [address], [place] [address] Aug, [facility] [address] [id number] [address] [place] [address], [place] [address] Aug, [facility] [address] [id number] [address] [place] [address], [place] [address] Aug, [facility] [address] [id number] [address] [place] [address], [place] [address] Aug, [facility] [address] [id number] [address] [place] [address], [place] [address] Aug, [facility] [address] [id number] [address] [place] [address] Aug, [facility] [address] [id number] [address] [place] [address], [place] [address] Aug, [facility] [address] [id number] [address] [place] [address], [place] [address] Jul, [facility] [address] [id number] [address] [place] [address], [place] [address] Jul, [facility] [address] [id number] [facility] [place] [address] 06 Jul, 2013 [facility] [address] [id number] [address] [place] [address], [place] [address] 06 Jul, 2013 [facility] [address] [id number] [address] [place] [address], [place] [address] 24 Jun, 2013 [facility] [address] [id number] [address] [place] [address], [place] [address] 24 Sep, 2013 [facility] [address] [id number] [address] [place] [address], [place] [address] 23 Jun, 2013 [facility] [address] [id number] [address] [place] [address], [place] [address] 23 Jun, 2013 [facility] [address] [id number] [address] [place] [address], [place] [address] 19 Jun, 2013 [facility] [address] [id number] [address] [place] [address], [place] [address] 19 Jun, 2013 [facility] [address] [id number] [address] [place] [address], [place] [address] 11 Jun, 2013 [facility] [address] [id number] [address] [place] [address], [place] [address] 11 Jun, 2013 [facility] [address] [id number] [address] [place] [address], [place] [address] 11 Jun, 2013 [facility] [address] [id number] [address] [place] [address], [place] [address] 11 Jun, 2013 [facility] [address] [id number] [address] [place] [address], [place] [address] 10 Jun, 2013 [facility] [address] [id number] [address] [place] [address], [place] [address] 10 Jun, 2013 [facility] [address] [id number] [address] [place] [address], [place] [address] 09 Jun, 2013 [facility] [address] [id number] [address] [place] [address], [place] [address] Jun, [facility] [address] [id number] [facility] [place] [address] May, [facility] [address] [id number] [address] [place] [address], [place] [address] May, [facility] [address] [id number] [address] [place] [address], [place] [address] May, [facility] [address] [id number] [address] [place] [address], [place] [address] May, [facility] [address] [id number] [address] [place] [address], [place] [address] May, [facility] [address] [id number] [address] [place] [address], [place] [address] May, [facility] [address] [id number] [address] [place] [address], [place] [address] Apr, [facility] [address] [id number] [address] [place] [address], [place] [address] Apr, [facility] [address] [id number] [address] [place] [address], [place] [address] Apr, [facility] [address] [id number] [address] [place] [address], [place] [address] Apr, [facility] [address] [id number] [address] [place] [address], [place] [address] Apr, [facility] [address] [id number] [address] [place] [address], [place] [address] Apr, [facility] [address] [id number] [address] [place] [address], [place] [address] Apr, [facility] [address] [id number] [address] [place] [address], [place] [address] Apr, [facility] [address] [id number] [address] [place] [address], [place] [address] Apr, [facility] [address] [id number] [address] [place] [address], [place] [address] Apr, [facility] [address] [id number] [address] [place] [address], [place] [address] Apr, [facility] [address] [id number] [address] [place] [address], [place] [address] Mar, [facility] [address] [id number] [address] [place] [address], [place] [address] Mar, [facility] [address] [id number] [address] [place] [address], [place] [address] Mar, [facility] [address] [id number] [address] [place] [address], [place] [address] Mar, [facility] [address] [id number] [address] [place] [address], [place] [address] February, [facility] [address] [id number] [address] [place] [address], [place] [address] February, [facility] [address] [id number] [address] [place] [address], [place] [address] Jan, [facility] [address] [id number] [address] [place] [address], [place] [address] Jan, [address] [id number] Jan, [facility] [address] [id number] [address] [place] [address], [place] [address] Jan, [facility] [address] [id number] [address] [place] [address], [place] [address] Jan, [facility] [address] [id number] [address] [place] [address], [place] [address] Jan, [facility] [address] [id number] [address] [place] [address], [place] [address] Jan, [facility] [address] [id number] [address] [place] [address], [place] [address] Jan, [facility] [address] [id number] [facility] [place] [address] Jan, [facility] [address] [id number] [address] [place] [address], [place] [address] 10 Jan, 2014 [facility] [address] [id number] [address] [place] [address], [place] [address] Jan, [facility] [address] [id number] [address] [place] [address], [place] [address] Jan, [facility] [address] [id number] [address] [place] [address], [place] [address] Jan, [facility] [address] [id number] [address] [place] [address], [place] [address] Jan, [facility] [address] [id number] [address] [place] [address], [place] [address] Jan, [facility] [address] [id number] [address] [place] [address], [place] [address] Jan, [facility] [address] [id number] [address] [place] [address], [place] [address] Jan, [facility] [address] [id number] [address] [place] [address], [place] [address] 18 Dec, 2013 [facility] [address] [id number] [address] [place] [address], [place] [address] 18 Dec, 2013 [facility] [address] [id number] [address] [place] [address], [place] [address] Dec, [facility] [address] [id number] [address] [place] [address], [place] [address] Dec, [facility] [address] [id number] [address] [place] [address], [place] [address] 05 Dec, 2013 [facility] [address] [id number] [address] [place] [address], [place] [address] 05 Dec, 2013 [facility] [address] [id number] [address] [place] [address], [place] [address] Dec, [facility] [address] [id number] [address] [place] [address], [place] [address] Nov, [facility] [address] [id number] [address] [place] [address], [place] [address] Nov, [facility] [address] [id number] [address] [place] [address], [place] [address] Nov, [facility] [address] [id number] [address] [place] [address], [place] [address] Nov, [facility] [address] [id number] [address] [place] [address], [place] [address] Nov, [facility] [address] [id number] [address] [place] [address], [place] [address] Nov, [facility] [address] [id number] [address] [place] [address], [place] [address] Nov, [facility] [address] [id number] [address] [place] [address], [place] [address] Oct, [facility] [address] [id number] [address] [place] [address], [place] [address] Oct, [facility] [address] [id number] [address] [place] [address], [place] [address] Sep, [facility] [address] [id number] [address] [place] [address], [place] [address] Sep, [facility] [address] [id number] [address] [place] [address], [place] [address] Sep, [facility] [address] [id number] [address] [place] [address], [place] [address] Sep, [facility] [address] [id number] [address] [place] [address], [place] [address] Sep, [facility] [address] [id number] [address] [place] [address], [place] [address] Sep, [facility] [address] [id number] [address] [place] [address] Sep, [facility] [address] [id number] [address] [place] [address] Sep, [facility] [address] [id number] [address] [place] [address] Sep, [facility] [address] [id number] [address] [place] [address] Sep, [facility] [address] [id number] [address] [place] [address] Aug, [facility] [address] [id number] [address] [place] [address] Aug, [facility] [address] [id number] [address] [place] [address] Aug, [facility] [address] [id number] [address] [place] [address] Aug, [facility] [address] [id number] [address] [place] [address] Aug, [facility] [address] [id number] [address] [place] [address] Jul, [facility] [address] [id number] [address] [place] [address] Jul, [facility] [address] [id number] [address] [place] [address] Jul, [facility] [address] [id number] [address] [place] [address] Jul, IMMUNIZATIONS No Known Immunizations SOCIAL HISTORY Never Assessed REASON FOR VISIT Weight loss appointments PLAN OF CARE VITAL SIGNS MEDICATIONS Unknown [...]
--- OUTSIDE RECORDS SUMMARY | 2020-03-16 12:05 | XMS REPORT ---
Author Author Swathi DORAN Organization [facility] Address [address] [place] [address] Care Team Providers Care Sports Activities Foul Judge Name Role Phone BRENTON DORAN Unavailable PROBLEMS Type Condition ICD9-CM Code BVI97-LQ Code Onset Dates Condition S tatus SNOMED Code Problem Anxiety F41.9 Active 71543146 Problem Chronic tension-type headache, intractable G44.221 Active 287043705 Problem Right upper quadrant pain R10.11 Acti ve 67887631 Problem Vitamin D deficiency E55.9 Active 62561327 Problem Sensorineural hearing loss of right ear H90.41 Active 02941553 Problem BMI 50.0-59.9, adult Z68.43 Active 431160342 Problem Fatty liver K76.0 Active 25301335 7 Problem Frequent falls R29.6 Active 68105 2001 Problem Crohn's disease of both small and large intestin e with complication K50.819 Active 29423345 Problem Type 2 diabetes mellitus with other specified complication E11.69 Active 860560194831 Problem Hyperlipidemia, unspecified E78.5 Ac tive 44851721 Problem MACHUCA (nonalcoholic steatohepatitis) K75.81 Active 209465731 Problem Iron deficiency anemia due to chronic blood loss D 50.0 Active 48872576 Problem Periodic limb movement sleep disorder G47.61 Active 498672472 Problem Obstructive sleep apnea on CPAP G47.33 Active 73274385 Problem Essential hypertension I10 Active 22851457 Problem Hyperlipidemia E78.5 Active 63665 004 Problem Chronic diarrhea K52.9 Active 236 406922 Problem Acquired hypothyroidism E03.9 Active 951761766 Problem Vitamin B12 deficiency E53.8 Active 288660401 Problem Major depressive disorder, recurrent episode, moderate F33.1 Active 801036671 ALLERGIES Substance Reaction Event Type Date Status Penicillin V Potassium Unknown Drug Allergy Mar, Activ e Niacin Unknown Drug Allergy Mar, Active Morphine Sulfate Unknown Drug Allergy Mar, Active Lipitor abdominal pain Drug Allergy Mar, Active Dilaudid Unknown Drug Allergy Mar, Active Bactrim Unknown Drug Allergy Mar, Active Amoxicillin Unknown Drug Allergy Mar, Active Adhesive Unknown Non Drug Allergy Mar, Active Sulfamethoxazole-Trimethoprim Unknown Drug Allergy Mar, 8 Active Tetanus&diphtheria Toxoid Unknown Non Drug Allergy Mar, 8 Active Influenza Virus Vacc,specific Got flu and was told to never get the vaccine again Non Drug Allergy Mar, Active ENCOUNTERS Encounter Location Date Diagnosis [facility] [id number] [place] [id number] Jul, [facility] [address] [id number] May, [facility] [address] [id number] May, [place] [address] [address] Apr, Nonhealing wound of heel S91 .309A and Body mass index (BMI) of 50- 59.9 in adult Z68.43 [place] [id number] [place] [id number] Mar, [facility] [id number] [place] [id number] Mar, BMI 50.0-59.9, adult Z68.43 ; Flank pain R10.9 and Weight loss counseling, encounter for Z71.3 [facility] [id number] [place] [id number] February, [place] [address] [id number] [place] [id number] Jan, [facility] [id number] [place] [phone] Jan, [facility] [id number] [place] [phone] Jan, Diarrhea due to staphylococc us A04.8 and Diarrhea, unspecified type R19.7 [place] [address] [facility] [id number] [address] [place] [phone] Jan, Acquired hypothyroidism E03. 9 ; Type 2 diabetes mellitus with other specified complication E11.69 ; Hyperlipidemia E78.5 ; Essential hypertension I10 ; Major depressive disorder, recurrent episode, moderate F33.1 and Vitamin D deficiency E55.9 [place] [address] [place] [id number] [place] [id number] Jan, Type 2 diabetes mellitus wit h other specified complication E11.69 ; Hyperlipidemia E78.5 ; Essential hypertension I10 ; Acquired hypothyroidism E03.9 ; Major depressive disorder, recurrent episode, moderate F33.1 ; Vitamin D deficiency E55.9 ; Sinus congestion R09.81 and BMI 50.0-59.9, adult Z68.43 [place] [address] [place] [id number] [place] [id number] Dec, [place] [address] [place] [id number] [place] [phone] Sep, Encounter for immunization Z 23 [place] [address] [place] [id number] [place] [id number] Sep, [place] [address] [place] [id number] [place] [phone] Sep, Vitamin B12 deficiency E53.8 [place] [address] [place] [id number] [place] [id number] Aug, [place] [address] [place] [id number] [place] [id number] Aug, BMI 60.0-69.9, adult Z68.44 and Acute non-recurrent maxillary sinusitis J01.00 [place] [address] [place] [id number] [place] [id number] 14 Aug, 2017 [place] [address] [place] [id number] [place] [id number] 02 Nov, 2017 Medicare annual wellness vis it, initial Z00.00 ; Screening for breast cancer Z12.31 ; BMI 40.0-44.9, adult Z68.41 and Acquired hypothyroidism E03.9 [place] [address] [place] [id number] Jul, Actinic keratosis L57.0 [place] [address] [address] Jul, Actinic keratosis L57.0 [place] [address] [address] Jul, Type 2 diabetes mellitus wit h other specified complication E11.69 ; Actinic keratosis L57.0 and Hypothyroidism, unspecified E03.9 [place] [address] [id number] Jul, [place] [address] [address] Jul, [place] [address] [address] Jul, Vitamin B12 deficiency E53.8 [place] [address] [address] Jun, Acquired hypothyroidism E03. 9 and Chronic tension-type headache, intractable G44.221 [place] [address] [place] [id number] Jun, Back muscle spasm M62.830 an d BMI 50.0-59.9, adult Z68.43 [place] [address] [place] [id number] Jun, Vitamin B12 deficiency E53.8 [place] [address] [place] [id number] [place] [id number] Jun, Crohn's disease of both smal l and large intestine with complication K50.819 [place] [address] [place] [id number] [place] [id number] Jun, Crohn's disease of both smal l and large intestine with complication K50.819 [place] [address] [place] [id number] [place] [id number] May, Hyperlipidemia E78.5 ; Anxie ty F41.9 and Essential hypertension I10 [place] [address] [place] [id number] [place] [phone] May, [place] [address] [place] [id number] [place] [phone] May, Encounter for immunization Z 23 and Vitamin B12 deficiency E53.8 [place] [address] [place] [address] [id number] [place] [phone] May, [place] [address] [place] [id number] [place] [id number] Apr, [place] [address] [place] [id number] [place] [id number] Apr, [place] [address] [place] [id number] Apr, Crohn's disease of both smal l and large intestine with complication K50.819 [place] [address] [place] [id number] [place] [id number] Apr, Vitamin B12 deficiency E53.8 [place] [address] [place] [id number] [place] [id number] Apr, Crohn's disease of both smal l and large intestine with complication K50.819 and Acute pain of right shoulder M25.511 [place] [address] [place] [id number] [place] [id number] Mar, Type 2 diabetes mellitus wit hout complication E11.9 ; Frequent falls R29.6 and Other chest pain R07.89 [place] [address] [place] [id number] [place] [id number] Mar, [place] [address] [facility] [id number] [address] [place] [id number] Mar, [facility] [address] [facility] [id number] [address] [place] [id number] Mar, Type 2 diabetes mellitus wit hout complication E11.9 and Blurry vision, bilateral H53.8 [place] [address] [facility] [id number] [address] [place] [id number] Mar, Vitamin B12 deficiency E53.8 [place] [address] [facility] [id number] [address] [place] [id number] Mar, Crohn's disease of both smal l and large intestine with complication K50.819 [place] [address] [facility] [id number] [address] [place] [id number] February, Vitamin B12 deficiency E53.8 [place] [address] [facility] [id number] [address] [place] [id number] Jan, Crohn's disease of both smal l and large intestine with complication K50.819 [place] [address] [facility] [id number] [address] [place] [id number] Jan, Crohn's disease of both smal l and large intestine with complication K50.819 [facility] [address] [facility] [id number] [address] [place] [id number] Jan, Dark brown-colored urine R82 .99 and Acute suppurative otitis media of right ear without spontaneous rupture of tympanic membrane, recurrence not specified H66.001 [place] [address] [facility] [id number] [address] [place] [id number] Jan, Encounter for immunization Z 23 [place] [address] [facility] [id number] [address] [place] [id number] Dec, Crohn's disease of both smal l and large intestine with complication K50.819 and Eustachian tube dysfunction, right H69.81 [facility] [address] [facility] [id number] [address] [place] [id number] Dec, [place] [address] [place] [id number] Dec, Contusion of right knee, ini tial encounter S80.01XA [place] [address] [place] [id number] [place] [id number] Dec, [place] [address] [place] [phone] Dec, Acute pain of right knee M25 .561 [place] [address] [place] [phone] Dec, Iron deficiency anemia due t o chronic blood loss D50.0 [place] [address] [place] [id number] Dec, Hyperlipidemia E78.5 ; Type 2 diabetes mellitus without complication E11.9 ; Vitamin B12 deficiency E53.8 ; Essential hypertension I10 ; Obstructive sleep apnea on CPAP G47.33 and Periodic limb movement sleep disorder G47.61 [place] [address] [place] [id number] Nov, Type 2 diabetes mellitus wit hout complication E11.9 ; Vitamin B12 deficiency E53.8 ; Hyperlipidemia E78.5 ; Essential hypertension I10 ; Obstructive sleep apnea on CPAP G47.33 ; Periodic limb movement sleep disorder G47.61 ; Anxiety F41.9 ; Acquired hypothyroidism E03.9 and Chronic tension-type headache, intractable G44.221 [place] [address] [place] [id number] Nov, Crohn's disease of both smal l and large intestine with complication K50.819 [place] [address] [place] [id number] [place] [id number] Nov, Vitamin B12 deficiency E53.8 [place] [address] [place] [id number] [place] [id number] Oct, [place] [address] [place] [id number] [place] [address] Oct, Vitamin B12 deficiency E53.8 [facility] [address] [id number] [address] [place] [id number] Sep, [facility] [address] [facility] [id number] [address] [place] [phone] Sep, Vitamin B12 deficiency E53.8 [facility] [address] [facility] [id number] [address] [place] [id number] Aug, [facility] [address] [facility] [id number] [address] [place] [id number] Aug, Vitamin B12 deficiency E53.8 [facility] [address] [facility] [id number] [address] [place] [phone] Aug, [facility] [address] [facility] [id number] [address] [place] [id number] Jul, Elevated ALT measurement R74 .0 [facility] [address] [facility] [id number] [address] [place] [id number] Jul, Hematuria R31.9 ; Acute righ t-sided thoracic back pain M54.6 ; Major depressive disorder, recurrent episode, moderate F33.1 and Elevated ALT measurement R74.0 [facility] [address] [facility] [id number] [address] [place] [id number] Jul, [facility] [address] [facility] [id number] [address] [place] [id number] Jul, Elevated ALT measurement R74 .0 [facility] [address] [facility] [id number] [address] [place] [id number] 14 Jul, 2016 Iron deficiency anemia due t o chronic blood loss D50.0 [facility] [address] [facility] [id number] [address] [place] [id number] 14 Jul, 2016 Type 2 diabetes mellitus wit hout complication E11.9 ; Acquired hypothyroidism E03.9 ; Iron deficiency anemia due to chronic blood loss D50.0 ; Hyperlipidemia E78.5 and Essential hypertension I10 [facility] [address] [id number] [address] [place] [id number] 26 Jun, 2016 [facility] [address] [facility] [id number] [address] [place] [id number] 20 Jun, 2016 Vitamin B12 deficiency E53.8 [facility] [address] [facility] [id number] [address] [place] [id number] 16 Jun, 2016 Type 2 diabetes mellitus wit hout complication E11.9 ; Acquired hypothyroidism E03.9 ; Iron deficiency anemia due to chronic blood loss D50.0 ; Hyperlipidemia E78.5 ; Essential hypertension I10 ; Chronic tension-type headache, intractable G44.221 ; Pulsatile tinnitus, bilateral H93.13 ; Obstructive sleep apnea on CPAP G47.33 and Major depressive disorder, recurrent episode, moderate F33.1 [place] [address] [facility] [id number] [address] [place] [id number] May, Vitamin B12 deficiency E53.8 [place] [address] [facility] [id number] [address] [place] [id number] May, [place] [address] [facility] [id number] [address] [place] [id number] Apr, Vitamin B12 deficiency E53.8 [place] [address] [facility] [id number] [address] [place] [id number] Apr, [place] [address] [facility] [id number] [address] [place] [id number] Mar, Chronic tension-type headach e, intractable G44.221 and Major depressive disorder, recurrent episode, moderate F33.1 [facility] [address] [id number] [address] [place] [id number] 14 Mar, 2016 Vitamin B12 deficiency E53.8 [place] [address] [facility] [id number] [address] [place] [id number] February, [facility] [address] [facility] [id number] [address] [place] [id number] February, Vitamin B12 deficiency E53.8 [facility] [address] [id number] [address] [place] [id number] February, [facility] [address] [facility] [id number] [address] [place] [id number] 27 Jan, 2016 Dysuria R30.0 [facility] [address] [facility] [id number] [address] [place] [id number] 22 Jan, 2016 Type 2 diabetes mellitus wit hout complication E11.9 and Essential hypertension I10 [facility] [address] [id number] [address] [place] [id number] 15 Jan, 2016 Chronic diarrhea K52.9 [facility] [address] [facility] [id number] [address] [place] [id number] 13 Jan, 2016 [facility] [address] [facility] [id number] [address] [place] [phone] Jan, Chronic diarrhea K52.9 [facility] [address] [facility] [id number] [address] [place] [id number] Jan, [facility] [address] [id number] [address] [place] [id number] 12 Jan, 2016 Dysuria R30.0 [facility] [address] [facility] [id number] [address] [place] [id number] 07 Jan, 2016 Vitamin B12 deficiency E53.8 [facility] [address] [facility] [id number] [address] [place] [id number] 07 Jan, 2016 Dysuria R30.0 and Iron defic iency anemia due to chronic blood loss D50.0 [facility] [address] [id number] [address] [place] [id number] 05 Jan, 2016 Dysuria R30.0 [facility] [address] [facility] [id number] [address] [place] [id number] 04 Jan, 2016 [facility] [address] [facility] [id number] [address] [place] [id number] 15 Dec, 2015 [facility] [address] [facility] [id number] [address] [place] [id number] 11 Dec, 2015 Iron deficiency anemia due t o chronic blood loss D50.0 [facility] [address] [facility] [id number] [address] [place] [id number] 10 Dec, 2015 Dysuria R30.0 ; Fatigue R53. 83 ; Hyperlipidemia E78.5 and Diarrhea R19.7 [place] [address] [place] [phone] Dec, [facility] [address] [facility] [id number] [address] [place] [id number] Dec, [place] [address] [phone] Nov, Vitamin B12 deficiency E53.8 [place] [address] [place] [id number] [place] [id number] Oct, Vitamin B12 deficiency E53.8 [facility] [address] [place] [id number] [place] [id number] Oct, [facility] [id number] [place] [id number] Oct, Headache R51 [facility] [address] [place] [id number] [place] [id number] 07 Oct, 2015 Essential hypertension I10 ; Type 2 diabetes mellitus without complication E11.9 ; Vitamin B12 deficiency E53.8 ; Acquired hypothyroidism E03.9 ; Iron deficiency anemia due to chronic blood loss D50.0 and Hyperlipidemia E78.5 [facility] [address] [facility] [id number] [address] [place] [id number] Sep, Essential hypertension I10 ; Vitamin B12 deficiency E53.8 ; Iron deficiency anemia due to chronic blood loss D50.0 ; Type 2 diabetes mellitus without complication E11.9 ; Hyperlipidemia E78.5 and Acquired hypothyroidism E03.9 [facility] [address] [place] [id number] [place] [id number] Sep, [place] [address] [facility] [id number] [address] [place] [id number] Sep, [facility] [address] [facility] [id number] [address] [place] [id number] Jul, [facility] [address] [facility] [id number] [address] [place] [id number] Jun, [facility] [address] [facility] [id number] [address] [place] [id number] Jun, [facility] [address] [facility] [id number] [address] [place] [id number] Jun, Hyperlipidemia 272.4 ; Iron deficiency anemia 280.9 ; Hypothyroidism 244.9 ; Diabetes mellitus without mention of complication, type II or unspecified type, not stated as uncontrolled 250.00 and Hypertension 401.9 [facility] [id number] [place] [id number] Jun, [facility] [address] [place] [id number] [place] [id number] Jun, [facility] [address] [facility] [id number] [address] [place] [id number] May, Hyperlipidemia 272.4 [facility] [address] [place] [id number] [place] [id number] May, [facility] [address] [place] [id number] [address] [place] [id number] May, [facility] [address] [place] [id number] [address] [place] [id number] Apr, Diabetes mellitus without me ntion of complication, type II or unspecified type, not stated as uncontrolled 250.00 ; Hypothyroidism 244.9 ; Hyperlipidemia 272.4 ; Pain in joint, lower leg 719.46 and RUQ pain 789.01 [facility] [address] [place] [id number] [address] [place] [id number] Mar, Sinusitis 473.9 [facility] [address] [place] [id number] [address] [place] [id number] Mar, [facility] [address] [id number] [address] [place] [id number] Mar, [facility] [address] [id number] [address] [place] [id number] Mar, Hematochezia 578.1 [facility] [address] [id number] [address] [place] [id number] February, Sinusitis 473.9 [facility] [address] [id number] [address] [place] [address], [place] [id number] February, [facility] [address] [id number] [address] [place] [id number] 14 Jan, 2015 [facility] [address] [id number] [address] [place] [id number] Jan, [facility] [address] [id number] [address] [place] [id number] 24 Dec, 2014 [facility] [address] [id number] [address] [place] [id number] Dec, [facility] [address] [id number] [address] [place] [id number] 24 Dec, 2014 [facility] [address] [id number] [address] [place] [id number] Dec, [facility] [address] [id number] [address] [place] [id number] Dec, [facility] [address] [id number] [address] [place] [id number] 24 Dec, 2014 [facility] [address] [id number] [address] [place] [id number] 23 Dec, 2014 [facility] [address] [id number] [address] [place] [id number] 13 Dec, 2014 [facility] [address] [id number] [address] [place] [id number] Dec, [facility] [address] [id number] [address] [place] [address], [place] [id number] Dec, [facility] [address] [id number] [address] [place] [address], [place] [id number] Dec, [facility] [address] [id number] [address] [place] [address], [place] [address] Nov, [facility] [address] [id number] [address] [place] [address], [place] [id number] Nov, [facility] [address] [id number] [address] [place] [address], [place] [id number] Nov, [facility] [address] [id number] [address] [place] [address], [place] [id number] Nov, [facility] [address] [id number] [address] [place] [address], [place] [id number] Oct, [facility] [address] [id number] [address] [place] [address], [place] [id number] Oct, [facility] [address] [id number] [address] [place] [address], [place] [id number] Oct, [facility] [address] [id number] [address] [place] [address], [place] [id number] Oct, [facility] [address] [id number] [address] [place] [address], [place] [address] Oct, [facility] [address] [id number] [address] [place] [address], [place] [id number] Oct, [facility] [address] [id number] [address] [place] [address], [place] [id number] Sep, [facility] [address] [id number] [address] [place] [address], [place] [id number] Sep, [facility] [address] [id number] [address] [place] [address], [place] [id number] Sep, [facility] [address] [id number] [address] [place] [address], [place] [id number] Sep, [facility] [address] [id number] [address] [place] [address], [place] [id number] Sep, [facility] [address] [id number] [address] [place] [address], [place] [id number] Sep, [facility] [address] [id number] [address] [place] [address], [place] [id number] Sep, [facility] [address] [id number] [address] [place] [address], [place] [id number] Aug, [facility] [address] [id number] [address] [place] [address], [place] [id number] Aug, [facility] [address] [id number] [address] [place] [address], [place] [id number] Aug, [facility] [address] [id number] [address] [place] [address], [place] [id number] Aug, [facility] [address] [id number] [address] [place] [address], [place] [id number] Aug, [facility] [address] [id number] [address] [place] [address], [place] [id number] Aug, [facility] [address] [id number] [address] [place] [address], [place] [id number] Aug, [facility] [address] [id number] [address] [place] [address], [place] [id number] Aug, [facility] [address] [id number] [address] [place] [address], [place] [address] Aug, [facility] [address] [id number] [address] [place] [address], [place] [id number] Aug, [facility] [address] [id number] [address] [place] [address], [place] [id number] Aug, [facility] [address] [id number] [address] [place] [address], [place] [address] Aug, [facility] [address] [id number] [address] [place] [address], [place] [id number] Aug, [facility] [address] [id number] [address] [place] [address], [place] [id number] Aug, [facility] [address] [id number] [address] [place] [address], [place] [address] Jul, [facility] [address] [id number] [address] [place] [address], [place] [id number] Jul, [facility] [address] [id number] [address] [place] [address], [place] [id number] Jul, [facility] [address] [id number] [address] [place] [address], [place] [id number] Jul, [facility] [address] [id number] [address] [place] [address], [place] [address] 24 Jun, 2014 [facility] [address] [id number] [address] [place] [address], [place] [id number] 24 Jun, 2013 [facility] [address] [id number] [address] [place] [address], [place] [id number] 23 Jun, 2013 [facility] [address] [id number] [address] [place] [address], [place] [id number] 23 Jun, 2013 [facility] [address] [id number] [address] [place] [address], [place] [id number] 19 Jun, 2013 [facility] [address] [id number] [address] [place] [id number] 19 Jun, 2013 [facility] [address] [id number] [address] [place] [address], [place] [address] 11 Jun, 2013 [facility] [address] [id number] [address] [place] [address], [place] [id number] 11 Jun, 2013 [facility] [address] [id number] [address] [place] [address], [place] [address] 11 Jun, 2013 [facility] [address] [id number] [address] [place] [address], [place] [address] 11 Jun, 2014 [facility] [address] [id number] [facility] [place] [address] Jun, [facility] [address] [id number] [facility] [place] [address] Jun, [facility] [address] [id number] [address] [place] [address], [place] [address] Jun, [facility] [address] [id number] [address] [place] [address], [place] [address] Jun, [facility] [address] [id number] [address] [place] [address], [place] [address] May, [facility] [address] [id number] [address] [place] [address], [place] [address] May, [facility] [address] [id number] [address] [place] [address], [place] [address] May, [facility] [address] [id number] [address] [place] [address], [place] [address] May, [facility] [address] [id number] [address] [place] [address], [place] [address] May, [facility] [address] [id number] [address] [place] [address], [place] [address] May, [facility] [address] [id number] [address] [place] [address], [place] [id number] Apr, [facility] [address] [id number] [address] [place] [address], [place] [address] Apr, [facility] [address] [id number] [address] [place] [address], [place] [address] Apr, [facility] [address] [id number] [address] [place] [address], [place] [address] Apr, [facility] [address] [id number] [address] [place] [address], [place] [address] Apr, [facility] [address] [id number] [address] [place] [address], [place] [address] Apr, [facility] [address] [id number] [address] [place] [address], [place] [address] Apr, [facility] [address] [id number] [facility] [place] [address] Apr, [facility] [address] [id number] [address] [place] [address], [place] [address] Apr, [facility] [address] [id number] [address] [place] [address], [place] [address] Apr, [facility] [address] [id number] [address] [place] [address], [place] [address] Apr, [facility] [address] [id number] [address] [place] [address], [place] [address] Mar, [facility] [address] [id number] [address] [place] [address], [place] [address] Mar, [facility] [address] [id number] [address] [place] [address], [place] [address] Mar, [facility] [address] [id number] [address] [place] [address], [place] [id number] Mar, [facility] [address] [id number] [address] [place] [address], [place] [address] February, [facility] [address] [id number] [address] [place] [address], [place] [address] February, [facility] [address] [id number] [address] [place] [address], [place] [address] Jan, [facility] [address] [id number] [address] [place] [address], [place] [address] Jan, [facility] [address] [facility], [place] [id number] Jan, [facility] [address] [id number] [address] [place] [address], [place] [address] Jan, [facility] [address] [id number] [address] [place] [address], [place] [address] Jan, [facility] [address] [id number] [address] [place] [address], [place] [address] Jan, [facility] [address] [id number] [address] [place] [address], [place] [id number] Jan, [facility] [address] [id number] [address] [place] [address], [place] [address] Jan, [facility] [address] [id number] [address] [place] [address], [place] [address] Jan, [facility] [address] [id number] [address] [place] [address], [place] [address] Jan, [facility] [address] [id number] [address] [place] [address], [place] [address] Jan, [facility] [address] [id number] [address] [place] [address], [place] [address] Jan, [facility] [address] [id number] [address] [place] [address], [place] [address] Jan, [facility] [address] [id number] [address] [place] [address], [place] [address] Jan, [facility] [address] [id number] [address] [place] [address], [place] [address] Jan, [facility] [address] [id number] [address] [place] [address], [place] [address] Jan, [facility] [address] [id number] [address] [place] [address], [place] [address] Jan, [facility] [address] [id number] [address] [place] [address], [place] [address] Dec, [facility] [address] [id number] [address] [place] [address], [place] [address] Dec, [facility] [address] [id number] [address] [place] [address], [place] [address] Dec, [facility] [address] [id number] [address] [place] [address], [place] [address] Dec, [facility] [address] [id number] [address] [place] [address], [place] [address] Dec, [facility] [address] [id number] [address] [place] [address], [place] [address] Dec, [facility] [address] [id number] [address] [place] [address], [place] [address] Dec, [facility] [address] [id number] [address] [place] [address], [place] [address] Nov, [facility] [address] [id number] [address] [place] [address], [place] [address] Nov, [facility] [address] [id number] [address] [place] [address], [place] [address] Nov, [facility] [address] [id number] [address] [place] [address], [place] [address] Nov, [facility] [address] [id number] [address] [place] [address], [place] [address] Nov, [facility] [address] [id number] [address] [place] [address], [place] [address] Nov, [facility] [address] [id number] [address] [place] [address], [place] [address] Nov, [facility] [address] [id number] [address] [place] [address], [place] [id number] Oct, [facility] [address] [id number] [address] [place] [address], [place] [address] Oct, [facility] [address] [id number] [address] [place] [address], [place] [address] Sep, [facility] [address] [id number] [address] [place] [address], [place] [address] Sep, [facility] [address] [id number] [address] [place] [address], [place] [address] Sep, [facility] [address] [id number] [address] [place] [address], [place] [address] Sep, [facility] [address] [id number] [address] [place] [address], [place] [address] Sep, [facility] [address] [id number] [address] [place] [address], [place] [address] Sep, [facility] [address] [id number] [address] [place] [address], [place] [address] Sep, [facility] [address] [id number] [address] [place] [address], [place] [address] Sep, [facility] [address] [id number] [address] [place] [address], [place] [address] Sep, [facility] [address] [id number] [address] [place] [address], [place] [address] Sep, [facility] [address] [id number] [address] [place] [address], [place] [address] Aug, [facility] [address] [id number] [address] [place] [address], [place] [address] Aug, [facility] [address] [id number] [address] [place] [address], [place] [address] Aug, [facility] [address] [id number] [address] [place] [id number] Aug, [facility] [address] [id number] [address] [place] [address], [place] [id number] Aug, [facility] [address] [id number] [address] [place] [address], [place] [address] Jul, [facility] [address] [id number] [address] [place] [id number] Jul, [facility] [address] [id number] [address] [place] [id number] Jul, [facility] [address] [facility] [id number] [address] [address] Jul, IMMUNIZATIONS No Known Immunizations SOCIAL HISTORY Never Assessed REASON FOR VISIT Weight management-mpolshakMA PLAN OF CARE Activity Details Follow Up 4 Weeks Reason:weight manage ment VITAL SIGNS Height 62 in 2018-04-06 Weight 308.5 lbs 2018-04-06 Temperature 97.8 degrees Fahrenheit 2018-04-06 Heart Rate 72 bpm 2018-04-06 Respiratory Rate 22 2018-04-06 BMI 56.42 kg/m2 2018-04-06 Blood pressure systolic 130 mmHg 2018-04-06 Blood pressure diastolic 85 mmHg 2018-04-06 MEDICATIONS Medication Instructions Dosage Frequency Start Date End Date Duration S kurtis MetFORMIN HCl ER 500 MG TAKE TWO TABLETS BY MOUTH TWICE DAILY 90 Active Zoloft 100 mg Orally Once a day 2 tablets 24h Active Januvia 100 MG TAKE ONE TABLET BY MOUTH ONCE DAILY Active Vitamin C 500 MG Active Zetia 10 MG TAKE ONE TABLET BY MOUTH ONCE DAILY 90 Active Gradwell Syringe 23G X 1 as directed Dec, Active Melatonin 5 MG Orally Once a day 1 tablet at bedtime as needed with f ood 24h Active Vitamin D (Ergocalciferol) 80357 UNIT Orally once weekly 1 capsule Active Levothyroxine Sodium 100 MCG TAKE ONE TA BLET BY MOUTH ONCE DAILY IN THE MORNING ON AN EMPTY STOMACH (MUST HAVE LABS DRAWN FOR REFILL) 90 Active Cyanocobalamin 1000 MCG/ML Injection one time monthly inject 1 ml 90 days Active Ferrous Sulfate 325 (65 Fe) MG Orally Once a day 1 tablet 24h Dec Active Lisinopril 40 MG TAKE ONE TABLET BY MOUTH ONCE DAILY 90 Active RESULTS No Results PROCEDURES Procedure Date Ordered Result Body Site [facility] VISIT ESTABLISHED PATIENT April 06, 2018 INSTRUCTIONS MEDICATIONS ADMINISTERED No Known Medications MEDICAL (GENERAL) HISTORY Type Description Date Medical History type 2 diabetes Medical History post cholecystectomy 2008 Medical History gastrointestinal disorder endoscopy stre ched esophagus in 2012 Medical History stress test- 05/2017 normal and EF 63% Surgical History thyroid surgery thyroidectomy 1996 Surgical [...]
--- OUTSIDE RECORDS SUMMARY | 2020-03-16 12:06 | XMS REPORT ---
Author Author Swathi DORAN [facility] Address [address] [place] [address] Care Team Providers Care Intelligence Applications Name Role Phone BRENTON DORAN Unavailable PROBLEMS Type Condition ICD9-CM Code [id number] Code Onset Dates Condition S tatus SNOMED Code Problem Anxiety F41.9 Active 05623977 Problem Chronic tension-type headache, intractable G44.221 Active 949236759 Problem Right upper quadrant pain R10.11 Acti ve 02863195 Problem Vitamin D deficiency E55.9 Active 37439306 Problem Sensorineural hearing loss of right ear H90.41 Active 19871162 Problem BMI 50.0-59.9, adult Z68.43 Active 344242616 Problem Fatty liver K76.0 Active 34716282 7 Problem Frequent falls R29.6 Active 60915 2002 Problem Crohn's disease of both small and large intestin e with complication K50.819 Active 46623682 Problem Type 2 diabetes mellitus with other specified complication E11.69 Active 157884437287 Problem Hyperlipidemia, unspecified E78.5 Ac tive 15486366 Problem MACHUCA (nonalcoholic steatohepatitis) K75.81 Active 325267023 Problem Iron deficiency anemia due to chronic blood loss D 50.0 Active 70339397 Problem Periodic limb movement sleep disorder G47.61 Active 294121224 Problem Obstructive sleep apnea on CPAP G47.33 Active 96288844 Problem Essential hypertension I10 Active 66446148 Problem Hyperlipidemia E78.5 Active 44807 004 Problem Chronic diarrhea K52.9 Active 236 095384 Problem Acquired hypothyroidism E03.9 Active 016080583 Problem Vitamin B12 deficiency E53.8 Active 141749255 Problem Major depressive disorder, recurrent episode, moderate F33.1 Active [id number] ALLERGIES No Information ENCOUNTERS Encounter Location Date Diagnosis [facility] [address] [facility] [id number] [address] [address] May, [facility] [address] [place] [id number] [place] [address] Apr, Nonhealing wound of heel S91 .309A and Body mass index (BMI) of 50- 59.9 in adult Z68.43 [place] [address] [place] [id number] [place] [address] Mar, [place] [address] [address] Mar, BMI 50.0-59.9, adult Z68.43 ; Flank pain R10.9 and Weight loss counseling, encounter for Z71.3 [place] [address] [address] February, [place] [address] [place] [id number] [place] [address] Jan, [place] [address] [place] [id number] [place] [address] Jan, [facility] [address] [place] [id number] [place] [address] Jan, Diarrhea due to staphylococc us A04.8 and Diarrhea, unspecified type R19.7 [place] [id number] [place] [address] Jan, Acquired hypothyroidism E03. 9 ; Type 2 diabetes mellitus with other specified complication E11.69 ; Hyperlipidemia E78.5 ; Essential hypertension I10 ; Major depressive disorder, recurrent episode, moderate F33.1 and Vitamin D deficiency E55.9 [place] [address] [place] [id number] [place] [address] Jan, Type 2 diabetes mellitus wit h other specified complication E11.69 ; Hyperlipidemia E78.5 ; Essential hypertension I10 ; Acquired hypothyroidism E03.9 ; Major depressive disorder, recurrent episode, moderate F33.1 ; Vitamin D deficiency E55.9 ; Sinus congestion R09.81 and BMI 50.0-59.9, adult Z68.43 [place] [address] [facility] [id number] [address] [place] [address] Dec, [facility] [address] [place] [id number] [place] [address] Sep, Encounter for immunization Z 23 [facility] [address] [place] [id number] [place] [address] Sep, [place] [address] [address] Sep, Vitamin B12 deficiency E53.8 [place] [address] [place] [id number] [place] [address] Aug, [place] [address] [address] Aug, BMI 60.0-69.9, adult Z68.44 and Acute non-recurrent maxillary sinusitis J01.00 [place] [address] [address] 14 Aug, 2017 [place] [address] [place] [id number] [place] [address] Aug, Medicare annual wellness vis it, initial Z00.00 ; Screening for breast cancer Z12.31 ; BMI 40.0-44.9, adult Z68.41 and Acquired hypothyroidism E03.9 [place] [address] [place] [id number] [place] [address] Jul, Actinic keratosis L57.0 [place] [address] [place] [id number] [place] [address] Jul, Actinic keratosis L57.0 [place] [address] [place] [id number] [place] [address] Jul, Type 2 diabetes mellitus wit h other specified complication E11.69 ; Actinic keratosis L57.0 and Hypothyroidism, unspecified E03.9 [place] [address] [place] [id number] [place] [address] Jul, [place] [address] [facility] [id number] [address] [place] [address] Jul, [place] [address] [place] [id number] [place] [address] Jul, Vitamin B12 deficiency E53.8 [place] [address] [place] [id number] [place] [address] Jun, Acquired hypothyroidism E03. 9 and Chronic tension-type headache, intractable G44.221 [place] [address] [place] [id number] [place] [address] Jun, Back muscle spasm M62.830 an d BMI 50.0-59.9, adult Z68.43 [place] [address] [place] [id number] [place] [address] Jun, Vitamin B12 deficiency E53.8 [place] [address] [place] [id number] [place] [address] Jun, Crohn's disease of both smal l and large intestine with complication K50.819 [place] [address] [address] Jun, Crohn's disease of both smal l and large intestine with complication K50.819 [place] [address] [place] [id number] [place] [address] May, Hyperlipidemia E78.5 ; Anxie ty F41.9 and Essential hypertension I10 [place] [address] [place] [id number] [place] [address] May, [place] [address] [address] May, Encounter for immunization Z 23 and Vitamin B12 deficiency E53.8 [place] [address] [place] [id number] [place] [address] May, [place] [address] [place] [id number] [place] [address] Apr, [facility] [address] [facility] [id number] [address] [place] [address] Apr, [place] [address] [facility] [id number] [address] [place] [address] Apr, Crohn's disease of both smal l and large intestine with complication K50.819 [place] [address] [facility] [id number] [address] [place] [address] Apr, Vitamin B12 deficiency E53.8 [place] [address] [facility] [id number] [address] [place] [address] Apr, Crohn's disease of both smal l and large intestine with complication K50.819 and Acute pain of right shoulder M25.511 [place] [address] [facility] [id number] [address] [place] [address] Mar, Type 2 diabetes mellitus wit hout complication E11.9 ; Frequent falls R29.6 and Other chest pain R07.89 [place] [address] [facility] [id number] [address] [place] [address] Mar, [place] [address] [facility] [id number] [address] [place] [address] Mar, [place] [address] [facility] [id number] [address] [place] [address] Mar, Type 2 diabetes mellitus wit hout complication E11.9 and Blurry vision, bilateral H53.8 [place] [address] [facility] [id number] [address] [place] [address] Mar, Vitamin B12 deficiency E53.8 [place] [address] [facility] [id number] [address] [place] [address] Mar, Crohn's disease of both smal l and large intestine with complication K50.819 [place] [address] [facility] [id number] [address] [place] [address] February, Vitamin B12 deficiency E53.8 [facility] [address] [facility] [id number] [address] [place] [address] Jan, Crohn's disease of both smal l and large intestine with complication K50.819 [facility] [address] [facility] [id number] [address] [place] [address] Jan, Crohn's disease of both smal l and large intestine with complication K50.819 [facility] [address] [facility] [id number] [address] [place] [address] Jan, Dark brown-colored urine R82 .99 and Acute suppurative otitis media of right ear without spontaneous rupture of tympanic membrane, recurrence not specified H66.001 [facility] [address] [place] [id number] [place] [address] Jan, Encounter for immunization Z 23 [place] [address] [place] [address] Dec, Crohn's disease of both smal l and large intestine with complication K50.819 and Eustachian tube dysfunction, right H69.81 [facility] [address] [place] [address] Dec, [facility] [address] [place] [id number] [place] [address] Dec, Contusion of right knee, ini tial encounter S80.01XA [place] [address] [place] [id number] [place] [address] Dec, [facility] [address] [place] [id number] [place] [address] Dec, Acute pain of right knee M25 .561 [facility] [address] [place] [id number] [place] [address] Dec, Iron deficiency anemia due t o chronic blood loss D50.0 [place] [address] [place] [id number] [place] [address] Dec, Hyperlipidemia E78.5 ; Type 2 diabetes mellitus without complication E11.9 ; Vitamin B12 deficiency E53.8 ; Essential hypertension I10 ; Obstructive sleep apnea on CPAP G47.33 and Periodic limb movement sleep disorder G47.61 [facility] [address] [facility] [id number] [address] [place] [address] 22 Nov, 2016 Type 2 diabetes mellitus wit hout complication E11.9 ; Vitamin B12 deficiency E53.8 ; Hyperlipidemia E78.5 ; Essential hypertension I10 ; Obstructive sleep apnea on CPAP G47.33 ; Periodic limb movement sleep disorder G47.61 ; Anxiety F41.9 ; Acquired hypothyroidism E03.9 and Chronic tension-type headache, intractable G44.221 [place] [address] [facility] [id number] [address] [place] [address] Nov, Crohn's disease of both smal l and large intestine with complication K50.819 [place] [address] [place] [id number] [place] [address] Nov, Vitamin B12 deficiency E53.8 [place] [address] [facility] [id number] [address] [place] [address] Oct, [place] [address] [facility] [id number] [address] [place] [address] Oct, Vitamin B12 deficiency E53.8 [place] [address] [facility] [id number] [address] [place] [address] Sep, [facility] [address] [place] [id number] [place] [address] Sep, Vitamin B12 deficiency E53.8 [facility] [address] [facility] [id number] [address] [place] [address] Aug, [place] [address] [place] [id number] [place] [address] 14 Aug, 2016 Vitamin B12 deficiency E53.8 [place] [address] [facility] [id number] [address] [place] [address] Aug, [place] [address] [facility] [id number] [address] [place] [address] 24 Jul, 2016 Elevated ALT measurement R74 .0 [place] [address] [facility] [id number] [address] [place] [address] Jul, Hematuria R31.9 ; Acute righ t-sided thoracic back pain M54.6 ; Major depressive disorder, recurrent episode, moderate F33.1 and Elevated ALT measurement R74.0 [place] [address] [facility] [id number] [address] [place] [address] Jul, [place] [address] [facility] [id number] [address] [place] [address] Jul, Elevated ALT measurement R74 .0 [place] [address] [facility] [id number] [address] [place] [address] 14 Jul, 2016 Iron deficiency anemia due t o chronic blood loss D50.0 [place] [address] [facility] [id number] [address] [place] [address] 14 Jul, 2016 Type 2 diabetes mellitus wit hout complication E11.9 ; Acquired hypothyroidism E03.9 ; Iron deficiency anemia due to chronic blood loss D50.0 ; Hyperlipidemia E78.5 and Essential hypertension I10 [place] [address] [place] [id number] [place] [address] 26 Jun, 2016 [place] [address] [place] [id number] [place] [address] 20 Jun, 2016 Vitamin B12 deficiency E53.8 [place] [address] [facility] [id number] [address] [place] [address] 16 Jun, 2016 Type 2 diabetes mellitus wit hout complication E11.9 ; Acquired hypothyroidism E03.9 ; Iron deficiency anemia due to chronic blood loss D50.0 ; Hyperlipidemia E78.5 ; Essential hypertension I10 ; Chronic tension-type headache, intractable G44.221 ; Pulsatile tinnitus, bilateral H93.13 ; Obstructive sleep apnea on CPAP G47.33 and Major depressive disorder, recurrent episode, moderate F33.1 [place] [address] [facility] [id number] [address] [place] [address] 16 May, 2016 Vitamin B12 deficiency E53.8 [facility] [address] [facility] [id number] [address] [place] [address] 08 May, 2016 [facility] [address] [facility] [id number] [address] [place] [address] Apr, Vitamin B12 deficiency E53.8 [facility] [address] [facility] [id number] [address] [place] [address] Apr, [facility] [address] [facility] [id number] [address] [place] [address] Mar, Chronic tension-type headach e, intractable G44.221 and Major depressive disorder, recurrent episode, moderate F33.1 [facility] [address] [facility] [id number] [address] [place] [address] 14 Mar, 2016 Vitamin B12 deficiency E53.8 [facility] [address] [facility] [id number] [address] [place] [address] February, [facility] [address] [place] [id number] [place] [address] February, Vitamin B12 deficiency E53.8 [facility] [address] [place] [id number] [place] [address] February, [facility] [address] [place] [id number] [place] [address] Jan, Dysuria R30.0 [facility] [address] [place] [id number] [place] [address] 22 Jan, 2016 Type 2 diabetes mellitus wit hout complication E11.9 and Essential hypertension I10 [facility] [address] [place] [id number] [place] [address] 15 Jan, 2016 Chronic diarrhea K52.9 [facility] [address] [place] [id number] [place] [address] 13 Jan, 2016 [facility] [address] [place] [id number] [place] [address] Jan, Chronic diarrhea K52.9 [facility] [address] [facility] [id number] [address] [place] [address] Jan, [facility] [address] [facility] [id number] [address] [place] [address] Jan, Dysuria R30.0 [facility] [address] [facility] [id number] [address] [place] [address] Jan, Vitamin B12 deficiency E53.8 [facility] [address] [facility] [id number] [address] [place] [address] 07 Jan, 2016 Dysuria R30.0 and Iron defic iency anemia due to chronic blood loss D50.0 [facility] [address] [facility] [id number] [address] [place] [address] 05 Jan, 2016 Dysuria R30.0 [facility] [address] [facility] [id number] [address] [place] [address] Jan, [facility] [address] [facility] [id number] [address] [place] [address] 15 Dec, 2015 [facility] [address] [place] [id number] [place] [address] Dec, Iron deficiency anemia due t o chronic blood loss D50.0 [facility] [address] [facility] [id number] [address] [place] [address] 10 Dec, 2015 Dysuria R30.0 ; Fatigue R53. 83 ; Hyperlipidemia E78.5 and Diarrhea R19.7 [facility] [address] [facility] [id number] [address] [place] [address] Dec, [facility] [address] [facility] [id number] [address] [place] [address] 02 Dec, 2015 [facility] [address] [facility] [id number] [address] [place] [address] 10 Nov, 2015 Vitamin B12 deficiency E53.8 [facility] [address] [facility] [id number] [address] [place] [address] 13 Oct, 2015 Vitamin B12 deficiency E53.8 [facility] [address] [facility] [id number] [address] [place] [address] Oct, [facility] [address] [facility] [id number] [address] [place] [address] 09 Oct, 2015 Headache R51 [facility] [id number] [place] [address] 07 Oct, 2015 Essential hypertension I10 ; Type 2 diabetes mellitus without complication E11.9 ; Vitamin B12 deficiency E53.8 ; Acquired hypothyroidism E03.9 ; Iron deficiency anemia due to chronic blood loss D50.0 and Hyperlipidemia E78.5 [place] [address] [place] [id number] [place] [address] 17 Sep, 2015 Essential hypertension I10 ; Vitamin B12 deficiency E53.8 ; Iron deficiency anemia due to chronic blood loss D50.0 ; Type 2 diabetes mellitus without complication E11.9 ; Hyperlipidemia E78.5 and Acquired hypothyroidism E03.9 [facility] [address] [place] [address] Sep, [place] [id number] [place] [address] Sep, [facility] [address] [place] [id number] [place] [address] Jul, [facility] [address] [place] [id number] [place] [address] Jun, [facility] [address] [place] [id number] [place] [address] Jun, [place] [address] [place] [id number] [address] [place] [address] 15 Jun, 2015 Hyperlipidemia 272.4 ; Iron deficiency anemia 280.9 ; Hypothyroidism 244.9 ; Diabetes mellitus without mention of complication, type II or unspecified type, not stated as uncontrolled 250.00 and Hypertension 401.9 [facility] [address] [facility] [id number] [address] [place] [address] Jun, [facility] [address] [facility] [id number] [address] [place] [address] Jun, [facility] [address] [facility] [id number] [address] [place] [address] May, Hyperlipidemia 272.4 [facility] [address] [facility] [id number] [address] [place] [address] May, [facility] [address] [facility] [id number] [address] [place] [address] May, [facility] [address] [facility] [id number] [place] [address] Apr, Diabetes mellitus without me ntion of complication, type II or unspecified type, not stated as uncontrolled 250.00 ; Hypothyroidism 244.9 ; Hyperlipidemia 272.4 ; Pain in joint, lower leg 719.46 and RUQ pain 789.01 [facility] [address] [facility] [id number] [address] [place] [address] Mar, Sinusitis 473.9 [facility] [address] [place] [id number] [place] [address] Mar, [facility] [address] [place] [id number] [place] [address] Mar, [facility] [address] [facility] [id number] [address] [place] [address] Mar, Hematochezia 578.1 [facility] [address] [facility] [id number] [address] [place] [address] February, Sinusitis 473.9 [facility] [address] [facility] [id number] [address] [place] [address] February, [facility] [address] [facility] [id number] [address] [place] [address] Jan, [facility] [address] [facility] [id number] [address] [place] [address] Jan, [facility] [address] [id number] [address] [place] [address], [place] [address] Dec, [facility] [address] [id number] [address] [place] [address], [place] [address] Dec, [facility] [address] [id number] [address] [place] [address], [place] [address] Dec, [facility] [address] [id number] [address] [place] [address], [place] [address] Dec, [facility] [address] [id number] [address] [place] [address], [place] [address] Dec, [facility] [address] [id number] [address] [place] [address], [place] [address] Dec, [facility] [address] [id number] [address] [place] [address], [place] [address] Dec, [facility] [address] [id number] [address] [place] [address], [place] [address] Dec, [facility] [address] [id number] [address] [place] [address], [place] [address] Dec, [facility] [address] [id number] [address] [place] [address], [place] [address] Dec, [facility] [address] [id number] [address] [place] [address], [place] [address] Dec, [facility] [address] [id number] [address] [place] [address], [place] [address] Nov, [facility] [address] [id number] [address] [place] [address], [place] [address] Nov, [facility] [address] [id number] [address] [place] [address], [place] [address] Nov, [facility] [address] [id number] [address] [place] [id number] Nov, [facility] [address] [id number] [address] [place] [address], [place] [address] Oct, [facility] [address] [id number] [address] [place] [address], [place] [address] Oct, [facility] [address] [id number] [address] [place] [address], [place] [address] Oct, [facility] [address] [id number] [address] [place] [address], [place] [address] Oct, [facility] [address] [id number] [address] [place] [address], [place] [address] Oct, [facility] [facility] [address] [id number] [address] [place] [address], [place] [address] Oct, [facility] [address] [id number] [address] [place] [address], [place] [address] Sep, [facility] [address] [id number] [address] [place] [address], [place] [address] Sep, [facility] [address] [id number] [address] [place] [address], [place] [address] Sep, [facility] [address] [id number] [address] [place] [address], [place] [address] Sep, [facility] [address] [id number] [address] [place] [address], [place] [address] Sep, [facility] [address] [id number] [address] [place] [address], [place] [address] Sep, [facility] [address] [id number] [address] [place] [address], [place] [address] Sep, [facility] [address] [id number] [address] [place] [address], [place] [address] Aug, [facility] [address] [id number] [address] [place] [address], [place] [address] Aug, [facility] [address] [id number] [address] [place] [address], [place] [address] Aug, [facility] [address] [id number] [address] [place] [address], [place] [address] Aug, [facility] [address] [id number] [address] [place] [address], [place] [address] Aug, [facility] [address] [id number] [address] [place] [address], [place] [address] Aug, [facility] [address] [id number] [address] [place] [address] Aug, [facility] [address] [id number] [address] [place] [address], [place] [address] Aug, [facility] [address] [id number] [address] [place] [address], [place] [address] Aug, [facility] [address] [id number] [address] [place] [address], [place] [address] Aug, [facility] [address] [id number] [address] [place] [address], [place] [address] Aug, [facility] [address] [id number] [address] [place] [address], [place] [address] Aug, [facility] [address] [id number] [address] [place] [address], [place] [address] Aug, [facility] [address] [id number] [address] [place] [address], [place] [address] Aug, [facility] [address] [id number] [address] [place] [address] Jul, [facility] [address] [id number] [address] [place] [address], [place] [address] Jul, [facility] [address] [id number] [address] [place] [address], [place] [address] Jul, [facility] [address] [id number] [address] [place] [address], [place] [address] Jul, [facility] [address] [id number] [facility] [place] [address] 24 Sep, 2013 [facility] [address] [id number] [address] [place] [address], [place] [address] 24 Sep, 2013 [facility] [address] [id number] [facility] [place] [address] 23 Sep, 2013 [facility] [address] [id number] [address] [place] [address], [place] [address] 23 Sep, 2013 [facility] [address] [id number] [address] [place] [address], [place] [address] 19 Jun, 2013 [facility] [address] [id number] [address] [place] [address], [place] [address] 19 Jun, 2013 [facility] [address] [id number] [address] [place] [address], [place] [address] 11 Jun, 2013 [facility] [address] [id number] [address] [place] [address], [place] [address] 11 Jun, 2013 [facility] [address] [id number] [address] [place] [address], [place] [address] 11 Jun, 2013 [facility] [address] [id number] [address] [place] [address], [place] [address] 11 Jun, 2013 [facility] [address] [id number] [address] [place] [address], [place] [address] 10 Jun, 2013 [facility] [address] [id number] [address] [place] [address], [place] [address] 10 Jun, 2013 [facility] [address] [id number] [address] [place] [address], [place] [address] 09 Jun, 2013 [facility] [address] [id number] [address] [place] [address], [place] [address] 09 Jun, 2013 [facility] [address] [id number] [address] [place] [address], [place] [address] 14 May, 2014 [facility] [address] [id number] [address] [place] [address], [place] [address] May, [facility] [address] [id number] [facility] [place] [address] May, [facility] [address] [id number] [address] [place] [address], [place] [address] May, [facility] [address] [id number] [address] [place] [address], [place] [address] May, [facility] [address] [id number] [address] [place] [address], [place] [address] May, [facility] [address] [id number] [address] [place] [address], [place] [address] Apr, [facility] [address] [id number] [address] [place] [address], [place] [address] Apr, [facility] [address] [id number] [address] [place] [address], [place] [address] Apr, [facility] [address] [id number] [address] [place] [address], [place] [address] Apr, [facility] [address] [id number] [address] [place] [address], [place] [address] Apr, [facility] [address] [id number] [address] [place] [address], [place] [address] Apr, [facility] [address] [id number] [address] [place] [address], [place] [address] Apr, [facility] [address] [id number] [address] [place] [address], [place] [address] Apr, [facility] [address] [id number] [address] [place] [address], [place] [address] Apr, [facility] [address] [id number] [address] [place] [address], [place] [address] Apr, [facility] [address] [id number] [address] [place] [address], [place] [address] Apr, [facility] [address] [id number] [address] [place] [address], [place] [address] Mar, [facility] [address] [id number] [address] [place] [address], [place] [address] Mar, [facility] [address] [id number] [address] [place] [address], [place] [address] Mar, [facility] [address] [id number] [address] [place] [address], [place] [address] Mar, [facility] [address] [id number] [address] [place] [address], [place] [address] February, [facility] [address] [id number] [address] [place] [address], [place] [address] February, [facility] [address] [id number] [address] [place] [address], [place] [address] Jan, [facility] [address] [id number] [address] [place] [address], [place] [address] Jan, [address] [id number] Jan, [facility] [address] [id number] [address] [place] [address], [place] [address] Jan, [facility] [address] [id number] [address] [place] [address], [place] [address] Jan, [facility] [address] [id number] [address] [place] [address], [place] [address] Jan, [facility] [address] [id number] [address] [place] [address], [place] [address] Jan, [facility] [address] [id number] [address] [place] [address], [place] [address] Jan, [facility] [address] [id number] [address] [place] [address], [place] [address] Jan, [facility] [address] [id number] [address] [place] [address], [place] [address] Jan, [facility] [address] [id number] [facility] [place] [address] 10 Jan, 2014 [facility] [address] [id number] [address] [place] [address], [place] [address] Jan, [facility] [address] [id number] [address] [place] [address], [place] [address] Jan, [facility] [address] [id number] [address] [place] [address], [place] [address] Jan, [facility] [address] [id number] [address] [place] [address], [place] [address] Jan, [facility] [address] [id number] [address] [place] [address], [place] [address] Jan, [facility] [address] [id number] [address] [place] [address], [place] [address] Jan, [facility] [address] [id number] [address] [place] [address], [place] [address] Dec, [facility] [address] [id number] [address] [place] [address], [place] [address] Dec, [facility] [address] [id number] [address] [place] [address], [place] [address] Dec, [facility] [address] [id number] [address] [place] [address], [place] [address] Dec, [facility] [address] [id number] [address] [place] [address], [place] [address] Dec, [facility] [address] [id number] [address] [place] [address], [place] [address] Dec, [facility] [address] [id number] [address] [place] [address], [place] [address] Dec, [facility] [address] [id number] [address] [place] [address], [place] [address] Nov, [facility] [address] [id number] [address] [place] [address], [place] [address] Nov, [facility] [address] [id number] [address] [place] [address], [place] [address] Nov, [facility] [address] [id number] [address] [place] [address], [place] [address] Nov, [facility] [address] [id number] [address] [place] [address], [place] [address] Nov, [facility] [address] [id number] [address] [place] [address], [place] [address] Nov, [facility] [address] [id number] [address] [place] [address], [place] [address] Nov, [facility] [address] [id number] [address] [place] [address], [place] [address] Oct, [facility] [address] [id number] [address] [place] [address], [place] [address] Oct, [facility] [address] [id number] [address] [place] [address], [place] [address] Sep, [facility] [address] [id number] [address] [place] [address], [place] [address] Sep, [facility] [address] [id number] [address] [place] [address], [place] [address] Sep, [facility] [address] [id number] [address] [place] [address], [place] [address] Sep, [facility] [address] [id number] [address] [place] [address], [place] [address] Sep, [facility] [address] [id number] [address] [place] [address], [place] [address] Sep, [facility] [address] [id number] [address] [place] [address], [place] [address] Sep, [facility] [address] [id number] [address] [place] [address], [place] [address] Sep, [facility] [address] [id number] [address] [place] [address] Sep, [facility] [address] [id number] [address] [place] [address] Sep, [facility] [address] [id number] [address] [place] [address] Aug, [facility] [address] [id number] [address] [place] [address] Aug, [facility] [address] [id number] [address] [place] [address] Aug, [facility] [address] [id number] [address] [place] [address] Aug, [facility] [address] [id number] [address] [place] [address] Aug, [facility] [address] [id number] [address] [place] [address] Jul, [facility] [address] [id number] [address] [place] [address] Jul, [facility] [address] [id number] [address] [place] [address] Jul, [facility] [address] [id number] [address] [place] [address] Jul, IMMUNIZATIONS No Known Immunizations SOCIAL HISTORY Never Assessed REASON FOR VISIT Lab (walk-in) PLAN OF CARE VITAL SIGNS MEDICATIONS Unknown Medications RESULTS No Results PROCEDURES Procedure Date Ordered Result Body Site LAB NOT BILLED BY [facility] January 17, 2018 VENIPUNCT, ROUTINE* January 17, 2018 INSTRUCTIONS MEDICATIONS ADMINISTERED No Known Medications [...]
--- OUTSIDE RECORDS SUMMARY | 2020-03-16 12:06 | XMS REPORT ---
Author Author Swathi RIDDLE Organization [facility] Address [address] [place] [address] Care Team Providers Care Enamel Applier Name Role Phone RAJIV RIDDLE Unavailable PROBLEMS Type Condition ICD9-CM Code [id number] Code Onset Dates Condition S tatus SNOMED Code Problem Anxiety F41.9 Active 33789211 Problem Chronic tension-type headache, intractable G44.221 Active 440384534 Problem Right upper quadrant pain R10.11 Acti ve 93443391 Problem Vitamin D deficiency E55.9 Active 85642589 Problem Sensorineural hearing loss of right ear H90.41 Active 84871079 Problem BMI 50.0-59.9, adult Z68.43 Active 614825709 Problem Fatty liver K76.0 Active 08297468 7 Problem Frequent falls R29.6 Active 72451 2001 Problem Crohn's disease of both small and large intestin e with complication K50.819 Active 96942672 Problem Type 2 diabetes mellitus with other specified complication E11.69 Active 913245341144 Problem Hyperlipidemia, unspecified E78.5 Ac tive 62229097 Problem MACHUCA (nonalcoholic steatohepatitis) K75.81 Active 800925483 Problem Iron deficiency anemia due to chronic blood loss D 50.0 Active 29179507 Problem Periodic limb movement sleep disorder G47.61 Active 282300539 Problem Obstructive sleep apnea on CPAP G47.33 Active 23067605 Problem Essential hypertension I10 Active 93499669 Problem Hyperlipidemia E78.5 Active 06805 004 Problem Chronic diarrhea K52.9 Active 236 672221 Problem Acquired hypothyroidism E03.9 Active 901041000 Problem Vitamin B12 deficiency E53.8 Active 077130836 Problem Major depressive disorder, recurrent episode, moderate F33.1 Active 364975394 ALLERGIES Substance Reaction Event Type Date Status Penicillin V Potassium Unknown Drug Allergy Jan, Activ e Niacin Unknown Drug Allergy Jan, Active Morphine Sulfate Unknown Drug Allergy Jan, Active Lipitor abdominal pain Drug Allergy Jan, Active Dilaudid Unknown Drug Allergy Jan, Active Bactrim Unknown Drug Allergy Jan, Active Amoxicillin Unknown Drug Allergy Jan, Active Influenza Virus Vacc,specific Got flu and was told to never get the vaccine again Non Drug Allergy Jan, Active Sulfamethoxazole-Trimethoprim Unknown Drug Allergy Jan, 201 8 Active Adhesive Unknown Non Drug Allergy Jan, Active Tetanus&diphtheria Toxoid Unknown Non Drug Allergy Jan, 201 8 Active ENCOUNTERS Encounter Location Date Diagnosis [facility] [address] [address] May, [place] [address] [address] Apr, Nonhealing wound of heel S91 .309A and Body mass index (BMI) of 50- 59.9 in adult Z68.43 [place] [address] [address] Mar, [place] [address] [place] [id number] [place] [phone] Mar, BMI 50.0-59.9, adult Z68.43 ; Flank pain R10.9 and Weight loss counseling, encounter for Z71.3 [place] [address] [place] [id number] [place] [phone] February, [place] [address] [place] [id number] [place] [phone] Jan, [facility] [address] [place] [id number] [place] [phone] Jan, [facility] [address] [place] [id number] [place] [phone] Jan, Diarrhea due to staphylococc us A04.8 and Diarrhea, unspecified type R19.7 [facility] [address] [place] [id number] [place] [phone] Jan, Acquired hypothyroidism E03. 9 ; Type 2 diabetes mellitus with other specified complication E11.69 ; Hyperlipidemia E78.5 ; Essential hypertension I10 ; Major depressive disorder, recurrent episode, moderate F33.1 and Vitamin D deficiency E55.9 [place] [address] [address] 03 Jan, 2018 Type 2 diabetes mellitus wit h other specified complication E11.69 ; Hyperlipidemia E78.5 ; Essential hypertension I10 ; Acquired hypothyroidism E03.9 ; Major depressive disorder, recurrent episode, moderate F33.1 ; Vitamin D deficiency E55.9 ; Sinus congestion R09.81 and BMI 50.0-59.9, adult Z68.43 [place] [address] [address] Dec, [place] [address] [address] Sep, Encounter for immunization Z 23 [place] [address] [address] 05 Sep, 2017 [place] [address] [address] Sep, Vitamin B12 deficiency E53.8 [place] [address] [address] 24 Aug, 2017 [place] [address] [address] 20 Aug, 2017 BMI 60.0-69.9, adult Z68.44 and Acute non-recurrent maxillary sinusitis J01.00 [place] [address] [place] [id number] [place] [id number] 14 Aug, 2017 [place] [address] [address] 02 Aug, 2017 Medicare annual wellness vis it, initial Z00.00 ; Screening for breast cancer Z12.31 ; BMI 40.0-44.9, adult Z68.41 and Acquired hypothyroidism E03.9 [place] [address] [address] Jul, Actinic keratosis L57.0 [facility] [address] [facility] [id number] [address] [place] [phone] Jul, Actinic keratosis L57.0 [facility] [address] [facility] [id number] [address] [place] [id number] Jul, Type 2 diabetes mellitus wit h other specified complication E11.69 ; Actinic keratosis L57.0 and Hypothyroidism, unspecified E03.9 [place] [address] [facility] [id number] [address] [place] [phone] Jul, [place] [address] [facility] [id number] [address] [place] [phone] Jul, [place] [address] [facility] [id number] [address] [place] [phone] Jul, Vitamin B12 deficiency E53.8 [place] [address] [facility] [id number] [address] [place] [phone] Jun, Acquired hypothyroidism E03. 9 and Chronic tension-type headache, intractable G44.221 [place] [address] [facility] [id number] [address] [place] [phone] Jun, Back muscle spasm M62.830 an d BMI 50.0-59.9, adult Z68.43 [place] [address] [facility] [id number] [address] [place] [phone] Jun, Vitamin B12 deficiency E53.8 [place] [address] [facility] [id number] [address] [place] [phone] Jun, Crohn's disease of both smal l and large intestine with complication K50.819 [place] [address] [facility] [id number] [address] [place] [phone] Jun, Crohn's disease of both smal l and large intestine with complication K50.819 [place] [id number] [facility] [id number] [address] [place] [phone] May, Hyperlipidemia E78.5 ; Anxie ty F41.9 and Essential hypertension I10 [facility] [address] [facility] [id number] [address] [place] [phone] May, [place] [address] [facility] [id number] [address] [place] [phone] May, Encounter for immunization Z 23 and Vitamin B12 deficiency E53.8 [facility] [address] [facility] [id number] [address] [place] [phone] May, [facility] [address] [facility] [id number] [address] [place] [phone] Apr, [place] [address] [facility] [id number] [address] [place] [phone] Apr, [place] [address] [place] [id number] [place] [phone] Apr, Crohn's disease of both smal l and large intestine with complication K50.819 [place] [address] [facility] [id number] [address] [place] [phone] Apr, Vitamin B12 deficiency E53.8 [place] [address] [facility] [id number] [address] [place] [phone] Apr, Crohn's disease of both smal l and large intestine with complication K50.819 and Acute pain of right shoulder M25.511 [place] [address] [place] [id number] [place] [phone] Mar, Type 2 diabetes mellitus wit hout complication E11.9 ; Frequent falls R29.6 and Other chest pain R07.89 [place] [address] [facility] [id number] [address] [place] [phone] Mar, [place] [address] [facility] [id number] [address] [place] [phone] Mar, [place] [address] [place] [id number] [place] [phone] 08 Marck, 2017 Type 2 diabetes mellitus wit hout complication E11.9 and Blurry vision, bilateral H53.8 [facility] [address] [facility] [id number] [address] [place] [phone] Mar, Vitamin B12 deficiency E53.8 [facility] [address] [facility] [id number] [address] [place] [phone] Mar, Crohn's disease of both smal l and large intestine with complication K50.819 [place] [address] [place] [id number] [place] [phone] February, Vitamin B12 deficiency E53.8 [place] [address] [facility] [id number] [address] [place] [phone] Jan, Crohn's disease of both smal l and large intestine with complication K50.819 [facility] [address] [place] [id number] [place] [phone] Jan, Crohn's disease of both smal l and large intestine with complication K50.819 [facility] [address] [facility] [id number] [address] [place] [phone] Jan, Dark brown-colored urine R82 .99 and Acute suppurative otitis media of right ear without spontaneous rupture of tympanic membrane, recurrence not specified H66.001 [place] [address] [place] [id number] [place] [phone] Jan, Encounter for immunization Z 23 [place] [address] [place] [id number] [place] [phone] Dec, Crohn's disease of both smal l and large intestine with complication K50.819 and Eustachian tube dysfunction, right H69.81 [facility] [address] [facility] [id number] [address] [place] [phone] Dec, [facility] [address] [place] [id number] [place] [phone] Dec, 2017 Contusion of right knee, ini tial encounter S80.01XA [place] [address] [place] [phone] Dec, [place] [address] [address] Dec, Acute pain of right knee M25 .561 [place] [address] [place] [id number] [place] [phone] Dec, Iron deficiency anemia due t o chronic blood loss D50.0 [place] [address] [place] [id number] [place] [phone] Dec, Hyperlipidemia E78.5 ; Type 2 diabetes mellitus without complication E11.9 ; Vitamin B12 deficiency E53.8 ; Essential hypertension I10 ; Obstructive sleep apnea on CPAP G47.33 and Periodic limb movement sleep disorder G47.61 [place] [address] [place] [id number] [place] [phone] 22 Nov, 2016 Type 2 diabetes mellitus wit hout complication E11.9 ; Vitamin B12 deficiency E53.8 ; Hyperlipidemia E78.5 ; Essential hypertension I10 ; Obstructive sleep apnea on CPAP G47.33 ; Periodic limb movement sleep disorder G47.61 ; Anxiety F41.9 ; Acquired hypothyroidism E03.9 and Chronic tension-type headache, intractable G44.221 [place] [address] [place] [id number] [place] [id number] 10 Nov, 2016 Crohn's disease of both smal l and large intestine with complication K50.819 [place] [address] [place] [id number] [place] [phone] Nov, Vitamin B12 deficiency E53.8 [place] [address] [place] [phone] Oct, [place] [address] [place] [id number] [place] [phone] Oct, Vitamin B12 deficiency E53.8 [place] [address] [place] [phone] Sep, [place] [address] [id number] [address] [place] [phone] Sep, Vitamin B12 deficiency E53.8 [facility] [address] [id number] [address] [place] [phone] Aug, [facility] [address] [facility] [id number] [address] [place] [phone] 14 Aug, 2016 Vitamin B12 deficiency E53.8 [facility] [address] [id number] [address] [place] [phone] Aug, [facility] [address] [facility] [id number] [address] [place] [phone] 24 Jul, 2016 Elevated ALT measurement R74 .0 [facility] [address] [facility] [id number] [address] [place] [phone] Jul, Hematuria R31.9 ; Acute righ t-sided thoracic back pain M54.6 ; Major depressive disorder, recurrent episode, moderate F33.1 and Elevated ALT measurement R74.0 [facility] [address] [facility] [id number] [address] [place] [phone] Jul, [facility] [address] [facility] [id number] [address] [place] [phone] Jul, Elevated ALT measurement R74 .0 [facility] [address] [facility] [id number] [address] [place] [phone] 14 Jul, 2016 Iron deficiency anemia due t o chronic blood loss D50.0 [facility] [address] [facility] [id number] [address] [place] [phone] 14 Jul, 2016 Type 2 diabetes mellitus wit hout complication E11.9 ; Acquired hypothyroidism E03.9 ; Iron deficiency anemia due to chronic blood loss D50.0 ; Hyperlipidemia E78.5 and Essential hypertension I10 [facility] [address] [id number] [address] [place] [phone] 26 Jun, 2016 [facility] [address] [facility] [id number] [address] [place] [phone] 20 Jun, 2016 Vitamin B12 deficiency E53.8 [facility] [address] [facility] [id number] [address] [place] [id number] 16 Jun, 2016 Type 2 diabetes mellitus wit hout complication E11.9 ; Acquired hypothyroidism E03.9 ; Iron deficiency anemia due to chronic blood loss D50.0 ; Hyperlipidemia E78.5 ; Essential hypertension I10 ; Chronic tension-type headache, intractable G44.221 ; Pulsatile tinnitus, bilateral H93.13 ; Obstructive sleep apnea on CPAP G47.33 and Major depressive disorder, recurrent episode, moderate F33.1 [facility] [address] [id number] [address] [place] [phone] May, Vitamin B12 deficiency E53.8 [place] [address] [facility] [id number] [address] [place] [id number] May, [facility] [address] [facility] [id number] [address] [place] [phone] Apr, Vitamin B12 deficiency E53.8 [facility] [address] [facility] [id number] [address] [place] [phone] Apr, [facility] [address] [facility] [id number] [address] [place] [phone] Mar, Chronic tension-type headach e, intractable G44.221 and Major depressive disorder, recurrent episode, moderate F33.1 [facility] [address] [facility] [id number] [address] [place] [phone] Mar, Vitamin B12 deficiency E53.8 [facility] [address] [facility] [id number] [address] [place] [phone] February, [facility] [address] [facility] [id number] [address] [place] [phone] February, Vitamin B12 deficiency E53.8 [facility] [address] [facility] [id number] [address] [place] [phone] February, [facility] [address] [facility] [id number] [address] [place] [phone] Jan, Dysuria R30.0 [facility] [address] [facility] [id number] [address] [place] [phone] 22 Jan, 2016 Type 2 diabetes mellitus wit hout complication E11.9 and Essential hypertension I10 [facility] [address] [facility] [id number] [address] [place] [phone] 15 Jan, 2016 Chronic diarrhea K52.9 [facility] [address] [id number] [address] [place] [id number] 13 Jan, 2016 [facility] [address] [id number] [address] [place] [phone] Jan, Chronic diarrhea K52.9 [facility] [address] [facility] [id number] [address] [place] [phone] Jan, [facility] [address] [facility] [id number] [address] [place] [phone] Jan, Dysuria R30.0 [facility] [address] [facility] [id number] [address] [place] [phone] 07 Jan, 2016 Vitamin B12 deficiency E53.8 [facility] [address] [facility] [id number] [address] [place] [phone] 07 Jan, 2016 Dysuria R30.0 and Iron defic iency anemia due to chronic blood loss D50.0 [facility] [address] [facility] [id number] [address] [place] [phone] 05 Jan, 2016 Dysuria R30.0 [facility] [address] [facility] [id number] [address] [place] [phone] 04 Jan, 2016 [facility] [address] [facility] [id number] [address] [place] [phone] 15 Dec, 2015 [facility] [address] [facility] [id number] [address] [place] [phone] 11 Dec, 2015 Iron deficiency anemia due t o chronic blood loss D50.0 [facility] [address] [facility] [id number] [address] [place] [phone] Dec, Dysuria R30.0 ; Fatigue R53. 83 ; Hyperlipidemia E78.5 and Diarrhea R19.7 [facility] [address] [place] [id number] [place] [phone] Dec, [facility] [address] [facility] [id number] [address] [place] [phone] Dec, [facility] [address] [address] Nov, Vitamin B12 deficiency E53.8 [facility] [address] [place] [id number] [place] [phone] Oct, Vitamin B12 deficiency E53.8 [facility] [address] [place] [id number] [place] [phone] Oct, [facility] [address] [place] [id number] [place] [phone] Oct, Headache R51 [facility] [address] [place] [id number] [place] [id number] 07 Oct, 2015 Essential hypertension I10 ; Type 2 diabetes mellitus without complication E11.9 ; Vitamin B12 deficiency E53.8 ; Acquired hypothyroidism E03.9 ; Iron deficiency anemia due to chronic blood loss D50.0 and Hyperlipidemia E78.5 [facility] [address] [place] [id number] [place] [phone] Sep, Essential hypertension I10 ; Vitamin B12 deficiency E53.8 ; Iron deficiency anemia due to chronic blood loss D50.0 ; Type 2 diabetes mellitus without complication E11.9 ; Hyperlipidemia E78.5 and Acquired hypothyroidism E03.9 [facility] [address] [facility] [id number] [address] [place] [phone] Sep, [facility] [address] [place] [id number] [place] [phone] Sep, [facility] [id number] [place] [phone] 05 Jul, 2015 [facility] [address] [id number] [address] [place] [phone] Jun, [facility] [address] [facility] [id number] [address] [place] [id number] Jun, [facility] [address] [facility] [id number] [address] [place] [phone] Jun, Hyperlipidemia 272.4 ; Iron deficiency anemia 280.9 ; Hypothyroidism 244.9 ; Diabetes mellitus without mention of complication, type II or unspecified type, not stated as uncontrolled 250.00 and Hypertension 401.9 [facility] [address] [facility] [id number] [address] [place] [id number] Jun, [facility] [address] [facility] [id number] [address] [place] [phone] Jun, [facility] [address] [facility] [id number] [address] [place] [address] May, Hyperlipidemia 272.4 [facility] [address] [facility] [id number] [address] [place] [phone] May, [facility] [address] [facility] [id number] [address] [place] [phone] May, [facility] [address] [facility] [id number] [address] [place] [phone] Apr, Diabetes mellitus without me ntion of complication, type II or unspecified type, not stated as uncontrolled 250.00 ; Hypothyroidism 244.9 ; Hyperlipidemia 272.4 ; Pain in joint, lower leg 719.46 and RUQ pain 789.01 [facility] [address] [facility] [id number] [address] [place] [phone] Mar, Sinusitis 473.9 [facility] [address] [facility] [id number] [address] [place] [phone] Mar, [facility] [address] [place] [id number] [address] [place] [phone] Mar, [facility] [address] [id number] [address] [place] [phone] Mar, Hematochezia 578.1 [facility] [address] [id number] [address] [place] [phone] February, Sinusitis 473.9 [facility] [address] [id number] [address] [place] [phone] February, [facility] [address] [id number] [address] [place] [address], [place] [id number] Jan, [facility] [address] [id number] [address] [place] [address], [place] [phone] Jan, [facility] [address] [id number] [address] [place] [address], [place] [phone] 24 Dec, 2014 [facility] [address] [id number] [address] [place] [address], [place] [phone] Dec, [facility] [address] [id number] [address] [place] [phone] 24 Dec, 2014 [facility] [address] [id number] [address] [place] [address], [place] [phone] Dec, [facility] [address] [id number] [address] [place] [phone] Dec, [facility] [facility] [address] [id number] [address] [place] [address] Dec, [facility] [address] [id number] [address] [place] [address] Dec, [facility] [address] [id number] [address] [place] [id number] Dec, [facility] [address] [id number] [address] [place] [id number] Dec, [facility] [address] [id number] [address] [place] [address] Dec, [facility] [address] [id number] [address] [place] [phone] Dec, [facility] [address] [id number] [address] [place] [address], [place] [address] Nov, [facility] [address] [id number] [address] [place] [address], [place] [address] Nov, [facility] [address] [id number] [address] [place] [address], [place] [address] Nov, [facility] [address] [id number] [address] [place] [address], [place] [address] Nov, [facility] [address] [id number] [address] [place] [address], [place] [address] Oct, [facility] [address] [id number] [address] [place] [address], [place] [address] Oct, [facility] [address] [id number] [address] [place] [address], [place] [address] Oct, [facility] [address] [id number] [address] [place] [address], [place] [address] Oct, [facility] [address] [id number] [address] [place] [address], [place] [address] Oct, [facility] [address] [id number] [address] [place] [address], [place] [address] Oct, [facility] [address] [id number] [address] [place] [address], [place] [address] Sep, [facility] [address] [id number] [address] [place] [phone] Sep, [facility] [address] [id number] [address] [place] [address], [place] [address] Sep, [facility] [address] [id number] [address] [place] [address], [place] [address] Sep, [facility] [address] [id number] [address] [place] [address], [place] [address] Sep, [facility] [address] [id number] [address] [place] [address], [place] [address] Sep, [facility] [address] [id number] [address] [place] [address], [place] [address] Sep, [facility] [address] [id number] [address] [place] [address], [place] [address] Aug, [facility] [address] [id number] [address] [place] [address], [place] [address] Aug, [facility] [address] [id number] [address] [place] [address], [place] [address] Aug, [facility] [address] [id number] [address] [place] [address], [place] [address] Aug, [facility] [address] [id number] [address] [place] [address], [place] [address] Aug, [facility] [address] [id number] [address] [place] [address], [place] [address] Aug, [facility] [address] [id number] [address] [place] [address], [place] [address] Aug, [facility] [address] [id number] [address] [place] [address], [place] [address] Aug, [facility] [address] [id number] [address] [place] [address], [place] [address] Aug, [facility] [address] [id number] [address] [place] [address], [place] [address] Aug, [facility] [address] [id number] [address] [place] [address], [place] [address] Aug, [facility] [address] [id number] [address] [place] [address], [place] [address] Aug, [facility] [address] [id number] [address] [place] [address], [place] [address] Aug, [facility] [address] [id number] [address] [place] [address] [address] Aug, [facility] [address] [id number] [address] [place] [address], [place] [address] Jul, [facility] [address] [id number] [address] [place] [address], [place] [address] Jul, [facility] [address] [id number] [address] [place] [address], [place] [address] Jul, [facility] [address] [id number] [address] [place] [address], [place] [address] Jul, [facility] [address] [id number] [address] [place] [address], [place] [address] 24 Jun, 2014 [facility] [address] [id number] [address] [place] [address], [place] [address] 24 Jun, 2013 [facility] [address] [id number] [address] [place] [address], [place] [address] 23 Jun, 2013 [facility] [address] [id number] [address] [place] [address], [place] [address] 23 Jun, 2013 [facility] [address] [id number] [address] [place] [address], [place] [address] 19 Jun, 2013 [facility] [address] [id number] [address] [place] [address], [place] [address] 19 Jun, 2013 [facility] [address] [id number] [address] [place] [address], [place] [address] 11 Jun, 2013 [facility] [address] [id number] [address] [place] [address] 11 Jun, 2013 [facility] [address] [id number] [address] [place] [address], [place] [address] 11 Jun, 2013 [facility] [address] [id number] [address] [place] [address], [place] [address] 11 Jun, 2013 [facility] [address] [id number] [address] [place] [address], [place] [address] 10 Jun, 2013 [facility] [address] [id number] [facility] [place] [address] Jun, [facility] [address] [id number] [address] [place] [address], [place] [address] Jun, [facility] [address] [id number] [address] [place] [address], [place] [address] Jun, [facility] [address] [id number] [address] [place] [address], [place] [address] May, [facility] [address] [id number] [address] [place] [address], [place] [address] May, [facility] [address] [id number] [address] [place] [address], [place] [address] May, [facility] [address] [id number] [address] [place] [address], [place] [address] May, [facility] [address] [id number] [address] [place] [address], [place] [address] May, [facility] [address] [id number] [address] [place] [address], [place] [address] May, [facility] [address] [id number] [address] [place] [address], [place] [address] Apr, [facility] [address] [id number] [address] [place] [address], [place] [address] Apr, [facility] [address] [id number] [address] [place] [address], [place] [address] Apr, [facility] [address] [id number] [address] [place] [address], [place] [address] Apr, [facility] [address] [id number] [address] [place] [address], [place] [address] Apr, [facility] [address] [id number] [address] [place] [address], [place] [address] Apr, [facility] [address] [id number] [address] [place] [address], [place] [address] Apr, [facility] [address] [id number] [address] [place] [address], [place] [address] Apr, [facility] [address] [id number] [address] [place] [address], [place] [address] Apr, [facility] [address] [id number] [address] [place] [address], [place] [address] Apr, [facility] [address] [id number] [address] [place] [address], [place] [address] Apr, [facility] [address] [id number] [address] [place] [address], [place] [address] Mar, [facility] [address] [id number] [address] [place] [address], [place] [address] Mar, [facility] [address] [id number] [address] [place] [address], [place] [address] Mar, [facility] [address] [id number] [address] [place] [address], [place] [address] Mar, [facility] [address] [id number] [address] [place] [address], [place] [address] February, [facility] [address] [id number] [address] [place] [address], [place] [address] February, [facility] [address] [id number] [address] [place] [address], [place] [address] Jan, [facility] [address] [id number] [address] [place] [address], [place] [address] Jan, [facility] [address] [place] [id number] Jan, [facility] [address] [id number] [address] [place] [address], [place] [address] Jan, [facility] [address] [id number] [address] [place] [address], [place] [address] Jan, [facility] [address] [id number] [address] [place] [address], [place] [address] Jan, [facility] [address] [id number] [facility] [place] [address] Jan, [facility] [address] [id number] [address] [place] [address], [place] [address] Jan, [facility] [address] [id number] [address] [place] [address], [place] [address] Jan, [facility] [address] [id number] [address] [place] [address], [place] [address] Jan, [facility] [address] [id number] [address] [place] [address], [place] [address] Jan, [facility] [address] [id number] [address] [place] [address], [place] [address] Jan, [facility] [address] [id number] [address] [place] [address], [place] [address] Jan, [facility] [address] [id number] [address] [place] [address], [place] [address] Jan, [facility] [address] [id number] [address] [place] [address], [place] [address] Jan, [facility] [address] [id number] [address] [place] [address], [place] [address] Jan, [facility] [address] [id number] [address] [place] [address], [place] [address] Jan, [facility] [address] [id number] [address] [place] [address], [place] [address] Dec, [facility] [address] [id number] [address] [place] [address], [place] [address] Dec, [facility] [address] [id number] [address] [place] [address], [place] [address] Dec, [facility] [address] [id number] [address] [place] [address], [place] [address] Dec, [facility] [address] [id number] [address] [place] [address], [place] [address] 05 Dec, 2013 [facility] [address] [id number] [address] [place] [address], [place] [address] Dec, [facility] [address] [id number] [address] [place] [address], [place] [address] Dec, [facility] [address] [id number] [address] [place] [address], [place] [address] Nov, [facility] [address] [id number] [address] [place] [address], [place] [address] Nov, [facility] [address] [id number] [address] [place] [address], [place] [address] Nov, [facility] [address] [id number] [address] [place] [address], [place] [address] Nov, [facility] [address] [id number] [address] [place] [address], [place] [address] Nov, [facility] [address] [id number] [address] [place] [address], [place] [address] Nov, [facility] [address] [id number] [address] [place] [address], [place] [address] Nov, [facility] [address] [id number] [address] [place] [address], [place] [address] Oct, [facility] [address] [id number] [address] [place] [address], [place] [address] Oct, [facility] [address] [id number] [address] [place] [address], [place] [address] Sep, [facility] [address] [id number] [address] [place] [address], [place] [address] Sep, [facility] [address] [id number] [address] [place] [address], [place] [address] Sep, [facility] [address] [id number] [address] [place] [address], [place] [address] Sep, [facility] [address] [id number] [address] [place] [address] Sep, [facility] [address] [id number] [address] [place] [address] Sep, [facility] [address] [id number] [address] [place] [address] Sep, [facility] [address] [id number] [address] [place] [address] Sep, [facility] [address] [id number] [address] [place] [address], [place] [address] Sep, [facility] [address] [id number] [address] [place] [address] Sep, [facility] [address] [id number] [address] [place] [address] Aug, [facility] [address] [id number] [address] [place] [address] Aug, [facility] [address] [id number] [address] [place] [address] Aug, [facility] [address] [id number] [address] [place] [address] Aug, [facility] [address] [id number] [address] [place] [address] Aug, [facility] [address] [id number] [address] [place] [address] Jul, [facility] [address] [id number] [address] [place] [address] Jul, [facility] [address] [id number] [address] [place] [address] Jul, [facility] [address] [id number] [address] [place] [address] Jul, IMMUNIZATIONS No Known Immunizations SOCIAL HISTORY Never Assessed REASON FOR VISIT for the past 3-4 days...right sided abdominal pain. pt has chrones, et an enlarg ed spleen. has been in here for this same complaint et has always been told its a muscle strain. pt called her GI dr in [place] yesterday...dr Najera...et was advise d to come in et see dr king...her pcp...however dr king isnt in clinic today. pt decided to come to the [facility] today for this complaint. PLAN OF CARE Activity Details Follow Up prn Reason: VITAL SIGNS Height 62 in 2018-01-27 Weight 310.0 lbs 2018-01-27 Temperature 98.3 degrees Fahrenheit 2018-01-27 Heart Rate 74 bpm 2018-01-27 Respiratory Rate 20 2018-01-27 BMI 56.69 kg/m2 2018-01-27 Blood pressure systolic 126 mmHg 2018-01-27 Blood pressure diastolic 78 mmHg 2018-01-27 MEDICATIONS Medication Instructions Dosage Frequency Start Date End Date Duration S tatus Humira 40 MG/0.8ML Subcutaneous every 2 weeks 0.8 ml Active Vitamin C 500 MG Active Cyanocobalamin 1000 MCG/ML Injection one time monthly inject 1 ml 90 days Active Melatonin 5 MG Orally Once a day 1 tablet at bedtime as needed with f ood 24h Active Lisinopril 40 MG TAKE ONE TABLET BY MOUTH ONCE DAILY Active Zetia 10 MG TAKE ONE TABLET BY MOUTH ONCE DAILY Active VanishPoint Syringe 23G X 1 as directed Dec, Active MetFORMIN HCl ER 500 MG TAKE TWO TABLETS BY MOUTH TWICE DAILY Active Januvia 100 MG TAKE ONE TABLET BY MOUTH ONCE DAILY Active Levothyroxine Sodium 100 MCG Orally Once a day 1 tablet on an empty stomach in the morning 24h Active Ferrous Sulfate 325 (65 Fe) MG Orally Once a day 1 tablet 24h Dec Active Vitamin D (Ergocalciferol) 08468 UNIT Orally once weekly 1 capsule Active Zoloft 100 mg Orally Once a day 2 tablets 24h Active RESULTS No Results PROCEDURES Procedure Date Ordered Result Body Site [facility] VISIT ESTABLISHED PATIENT January 27, 2018 INSTRUCTIONS MEDICATIONS ADMINISTERED No Known Medications [...]
--- OUTSIDE RECORDS SUMMARY | 2020-03-16 12:06 | XMS REPORT ---
Author Author Swathi [facility] Address [address] [place] [address] Care Team Providers Care Fiscal Services Manager Name Role Phone BRENTON DORAN Unavailable PROBLEMS Type Condition ICD9-CM Code IQR60-HJ Code Onset Dates Condition S tatus SNOMED Code Problem Anxiety F41.9 Active 71269299 Problem Chronic tension-type headache, intractable G44.221 Active 480659347 Problem Right upper quadrant pain R10.11 Acti ve 96161951 Problem Vitamin D deficiency E55.9 Active 64184177 Problem Sensorineural hearing loss of right ear H90.41 Active 67101396 Problem BMI 50.0-59.9, adult Z68.43 Active 668513371 Problem Fatty liver K76.0 Active 40467415 7 Problem Frequent falls R29.6 Active 54898 2002 Problem Crohn's disease of both small and large intestin e with complication K50.819 Active 04278720 Problem Type 2 diabetes mellitus with other specified complication E11.69 Active 043434709538 Problem Hyperlipidemia, unspecified E78.5 Ac tive 24371970 Problem MACHUCA (nonalcoholic steatohepatitis) K75.81 Active 411064726 Problem Iron deficiency anemia due to chronic blood loss D 50.0 Active 02368309 Problem Periodic limb movement sleep disorder G47.61 Active 278077894 Problem Obstructive sleep apnea on CPAP G47.33 Active 50291454 Problem Essential hypertension I10 Active 95900223 Problem Hyperlipidemia E78.5 Active 19503 004 Problem Chronic diarrhea K52.9 Active 236 151998 Problem Acquired hypothyroidism E03.9 Active 224550235 Problem Vitamin B12 deficiency E53.8 Active 042101889 Problem Major depressive disorder, recurrent episode, moderate F33.1 Active 598463528 ALLERGIES No Information ENCOUNTERS Encounter Location Date Diagnosis [facility] [address] [facility] [id number] [place] [address] May, [facility] [address] [place] [id number] [place] [address] Apr, Nonhealing wound of heel S91 .309A and Body mass index (BMI) of 50- 59.9 in adult Z68.43 [place] [address] [place] [id number] [place] [address] Mar, [place] [address] [address] Mar, BMI 50.0-59.9, adult Z68.43 ; Flank pain R10.9 and Weight loss counseling, encounter for Z71.3 [place] [address] [address] February, [place] [address] [place] [id number] [place] [address] Jan, [place] [address] [place] [id number] [place] [address] Jan, [facility] [address] [place] [id number] [place] [address] Jan, Diarrhea due to staphylococc us A04.8 and Diarrhea, unspecified type R19.7 [place] [id number] [place] [address] Jan, Acquired hypothyroidism E03. 9 ; Type 2 diabetes mellitus with other specified complication E11.69 ; Hyperlipidemia E78.5 ; Essential hypertension I10 ; Major depressive disorder, recurrent episode, moderate F33.1 and Vitamin D deficiency E55.9 [place] [address] [place] [id number] [place] [address] Jan, Type 2 diabetes mellitus wit h other specified complication E11.69 ; Hyperlipidemia E78.5 ; Essential hypertension I10 ; Acquired hypothyroidism E03.9 ; Major depressive disorder, recurrent episode, moderate F33.1 ; Vitamin D deficiency E55.9 ; Sinus congestion R09.81 and BMI 50.0-59.9, adult Z68.43 [place] [address] [facility] [id number] [address] [place] [address] Dec, [facility] [address] [place] [id number] [place] [address] Sep, Encounter for immunization Z 23 [facility] [address] [place] [id number] [place] [address] Sep, [place] [address] [address] Sep, Vitamin B12 deficiency E53.8 [place] [address] [place] [id number] [place] [address] Aug, [place] [address] [address] Aug, BMI 60.0-69.9, adult Z68.44 and Acute non-recurrent maxillary sinusitis J01.00 [place] [address] [address] 14 Aug, 2017 [place] [address] [place] [id number] [place] [address] Aug, Medicare annual wellness vis it, initial Z00.00 ; Screening for breast cancer Z12.31 ; BMI 40.0-44.9, adult Z68.41 and Acquired hypothyroidism E03.9 [place] [address] [place] [id number] [place] [address] Jul, Actinic keratosis L57.0 [place] [address] [place] [id number] [place] [address] Jul, Actinic keratosis L57.0 [place] [address] [place] [id number] [place] [address] Jul, Type 2 diabetes mellitus wit h other specified complication E11.69 ; Actinic keratosis L57.0 and Hypothyroidism, unspecified E03.9 [place] [address] [place] [id number] [place] [address] Jul, [place] [address] [facility] [id number] [address] [place] [address] Jul, [place] [address] [place] [id number] [place] [address] Jul, Vitamin B12 deficiency E53.8 [place] [address] [place] [id number] [place] [address] Jun, Acquired hypothyroidism E03. 9 and Chronic tension-type headache, intractable G44.221 [place] [address] [place] [id number] [place] [address] Jun, Back muscle spasm M62.830 an d BMI 50.0-59.9, adult Z68.43 [place] [address] [place] [id number] [place] [address] Jun, Vitamin B12 deficiency E53.8 [place] [address] [place] [id number] [place] [address] Jun, Crohn's disease of both smal l and large intestine with complication K50.819 [place] [address] [address] Jun, Crohn's disease of both smal l and large intestine with complication K50.819 [place] [address] [place] [id number] [place] [address] May, Hyperlipidemia E78.5 ; Anxie ty F41.9 and Essential hypertension I10 [place] [address] [place] [id number] [place] [address] May, [place] [address] [address] May, Encounter for immunization Z 23 and Vitamin B12 deficiency E53.8 [place] [address] [place] [id number] [place] [address] May, [place] [address] [place] [id number] [place] [address] Apr, [facility] [address] [facility] [id number] [address] [place] [address] Apr, [place] [address] [facility] [id number] [address] [place] [address] Apr, Crohn's disease of both smal l and large intestine with complication K50.819 [place] [address] [facility] [id number] [address] [place] [address] Apr, Vitamin B12 deficiency E53.8 [place] [address] [facility] [id number] [address] [place] [address] Apr, Crohn's disease of both smal l and large intestine with complication K50.819 and Acute pain of right shoulder M25.511 [place] [address] [address] [facility] [id number] [address] [place] [address] Mar, Type 2 diabetes mellitus wit hout complication E11.9 ; Frequent falls R29.6 and Other chest pain R07.89 [place] [address] [facility] [id number] [address] [place] [address] Mar, [place] [address] [facility] [id number] [address] [place] [address] Mar, [place] [address] [facility] [id number] [address] [place] [address] Mar, Type 2 diabetes mellitus wit hout complication E11.9 and Blurry vision, bilateral H53.8 [place] [address] [facility] [id number] [address] [place] [address] Mar, Vitamin B12 deficiency E53.8 [place] [address] [facility] [id number] [address] [place] [address] Mar, Crohn's disease of both smal l and large intestine with complication K50.819 [place] [address] [facility] [id number] [address] [place] [address] February, Vitamin B12 deficiency E53.8 [facility] [address] [facility] [id number] [address] [place] [address] Jan, Crohn's disease of both smal l and large intestine with complication K50.819 [facility] [address] [facility] [id number] [address] [place] [address] Jan, Crohn's disease of both smal l and large intestine with complication K50.819 [facility] [address] [facility] [id number] [address] [place] [address] Jan, Dark brown-colored urine R82 .99 and Acute suppurative otitis media of right ear without spontaneous rupture of tympanic membrane, recurrence not specified H66.001 [facility] [address] [place] [id number] [place] [address] Jan, Encounter for immunization Z 23 [place] [address] [place] [address] Dec, Crohn's disease of both smal l and large intestine with complication K50.819 and Eustachian tube dysfunction, right H69.81 [facility] [address] [place] [address] Dec, [facility] [address] [place] [id number] [place] [address] Dec, Contusion of right knee, ini tial encounter S80.01XA [place] [address] [place] [id number] [place] [address] Dec, [facility] [address] [place] [id number] [place] [address] Dec, Acute pain of right knee M25 .561 [facility] [address] [place] [id number] [place] [address] Dec, Iron deficiency anemia due t o chronic blood loss D50.0 [place] [address] [place] [id number] [place] [address] Dec, Hyperlipidemia E78.5 ; Type 2 diabetes mellitus without complication E11.9 ; Vitamin B12 deficiency E53.8 ; Essential hypertension I10 ; Obstructive sleep apnea on CPAP G47.33 and Periodic limb movement sleep disorder G47.61 [facility] [address] [facility] [id number] [address] [place] [address] 22 Nov, 2016 Type 2 diabetes mellitus wit hout complication E11.9 ; Vitamin B12 deficiency E53.8 ; Hyperlipidemia E78.5 ; Essential hypertension I10 ; Obstructive sleep apnea on CPAP G47.33 ; Periodic limb movement sleep disorder G47.61 ; Anxiety F41.9 ; Acquired hypothyroidism E03.9 and Chronic tension-type headache, intractable G44.221 [place] [address] [facility] [id number] [address] [place] [address] Nov, Crohn's disease of both smal l and large intestine with complication K50.819 [place] [address] [place] [id number] [place] [address] Nov, Vitamin B12 deficiency E53.8 [place] [address] [facility] [id number] [address] [place] [address] Oct, [place] [address] [facility] [id number] [address] [place] [address] Oct, Vitamin B12 deficiency E53.8 [place] [address] [facility] [id number] [address] [place] [address] Sep, [facility] [address] [place] [id number] [place] [address] Sep, Vitamin B12 deficiency E53.8 [facility] [address] [facility] [id number] [address] [place] [address] Aug, [place] [address] [place] [id number] [place] [address] 14 Aug, 2016 Vitamin B12 deficiency E53.8 [place] [address] [facility] [id number] [address] [place] [address] Aug, [place] [address] [facility] [id number] [address] [place] [address] 24 Jul, 2016 Elevated ALT measurement R74 .0 [place] [address] [facility] [id number] [address] [place] [address] Jul, Hematuria R31.9 ; Acute righ t-sided thoracic back pain M54.6 ; Major depressive disorder, recurrent episode, moderate F33.1 and Elevated ALT measurement R74.0 [place] [address] [facility] [id number] [address] [place] [address] Jul, [place] [address] [facility] [id number] [address] [place] [address] Jul, Elevated ALT measurement R74 .0 [place] [address] [facility] [id number] [address] [place] [address] 14 Jul, 2016 Iron deficiency anemia due t o chronic blood loss D50.0 [place] [address] [facility] [id number] [address] [place] [address] 14 Jul, 2016 Type 2 diabetes mellitus wit hout complication E11.9 ; Acquired hypothyroidism E03.9 ; Iron deficiency anemia due to chronic blood loss D50.0 ; Hyperlipidemia E78.5 and Essential hypertension I10 [place] [address] [place] [id number] [place] [address] 26 Jun, 2016 [place] [address] [place] [id number] [place] [address] 20 Jun, 2016 Vitamin B12 deficiency E53.8 [place] [address] [facility] [id number] [address] [place] [address] 16 Jun, 2016 Type 2 diabetes mellitus wit hout complication E11.9 ; Acquired hypothyroidism E03.9 ; Iron deficiency anemia due to chronic blood loss D50.0 ; Hyperlipidemia E78.5 ; Essential hypertension I10 ; Chronic tension-type headache, intractable G44.221 ; Pulsatile tinnitus, bilateral H93.13 ; Obstructive sleep apnea on CPAP G47.33 and Major depressive disorder, recurrent episode, moderate F33.1 [place] [address] [facility] [id number] [address] [place] [address] 16 May, 2016 Vitamin B12 deficiency E53.8 [facility] [address] [facility] [id number] [address] [place] [address] 08 May, 2016 [facility] [address] [facility] [id number] [address] [place] [address] Apr, Vitamin B12 deficiency E53.8 [facility] [address] [facility] [id number] [address] [place] [address] Apr, [facility] [address] [facility] [id number] [address] [place] [address] Mar, Chronic tension-type headach e, intractable G44.221 and Major depressive disorder, recurrent episode, moderate F33.1 [facility] [address] [facility] [id number] [address] [place] [address] 14 Mar, 2016 Vitamin B12 deficiency E53.8 [facility] [address] [facility] [id number] [address] [place] [address] February, [facility] [address] [place] [id number] [place] [address] February, Vitamin B12 deficiency E53.8 [facility] [address] [place] [id number] [place] [address] February, [facility] [address] [place] [id number] [place] [address] Jan, Dysuria R30.0 [facility] [address] [place] [id number] [place] [address] 22 Jan, 2016 Type 2 diabetes mellitus wit hout complication E11.9 and Essential hypertension I10 [facility] [address] [place] [id number] [place] [address] 15 Jan, 2016 Chronic diarrhea K52.9 [facility] [address] [place] [id number] [place] [address] 13 Jan, 2016 [facility] [address] [place] [id number] [place] [address] Jan, Chronic diarrhea K52.9 [facility] [address] [facility] [id number] [address] [place] [address] Jan, [facility] [address] [facility] [id number] [address] [place] [address] Jan, Dysuria R30.0 [facility] [address] [facility] [id number] [address] [place] [address] Jan, Vitamin B12 deficiency E53.8 [facility] [address] [facility] [id number] [address] [place] [address] 07 Jan, 2016 Dysuria R30.0 and Iron defic iency anemia due to chronic blood loss D50.0 [facility] [address] [facility] [id number] [address] [place] [address] 05 Jan, 2016 Dysuria R30.0 [facility] [address] [facility] [id number] [address] [place] [address] Jan, [facility] [address] [facility] [id number] [address] [place] [address] 15 Dec, 2015 [facility] [address] [place] [id number] [place] [address] Dec, Iron deficiency anemia due t o chronic blood loss D50.0 [facility] [address] [facility] [id number] [address] [place] [address] 10 Dec, 2015 Dysuria R30.0 ; Fatigue R53. 83 ; Hyperlipidemia E78.5 and Diarrhea R19.7 [facility] [address] [facility] [id number] [address] [place] [address] Dec, [facility] [address] [facility] [id number] [address] [place] [address] 02 Dec, 2015 [facility] [address] [facility] [id number] [address] [place] [address] 10 Nov, 2015 Vitamin B12 deficiency E53.8 [facility] [address] [facility] [id number] [address] [place] [address] 13 Oct, 2015 Vitamin B12 deficiency E53.8 [facility] [address] [facility] [id number] [address] [place] [address] Oct, [facility] [address] [facility] [id number] [address] [place] [address] 09 Oct, 2015 Headache R51 [facility] [address] [place] [address] 07 Oct, 2015 Essential hypertension I10 ; Type 2 diabetes mellitus without complication E11.9 ; Vitamin B12 deficiency E53.8 ; Acquired hypothyroidism E03.9 ; Iron deficiency anemia due to chronic blood loss D50.0 and Hyperlipidemia E78.5 [place] [address] [place] [id number] [place] [address] 17 Sep, 2015 Essential hypertension I10 ; Vitamin B12 deficiency E53.8 ; Iron deficiency anemia due to chronic blood loss D50.0 ; Type 2 diabetes mellitus without complication E11.9 ; Hyperlipidemia E78.5 and Acquired hypothyroidism E03.9 [facility] [address] [place] [address] Sep, [place] [address] [place] [address] Sep, [facility] [address] [place] [id number] [place] [address] Jul, [facility] [address] [place] [id number] [place] [address] Jun, [facility] [address] [place] [id number] [place] [address] Jun, [place] [address] [place] [id number] [place] [address] 15 Jun, 2015 Hyperlipidemia 272.4 ; Iron deficiency anemia 280.9 ; Hypothyroidism 244.9 ; Diabetes mellitus without mention of complication, type II or unspecified type, not stated as uncontrolled 250.00 and Hypertension 401.9 [facility] [address] [facility] [id number] [address] [place] [address] Jun, [facility] [address] [facility] [id number] [address] [place] [address] Jun, [facility] [address] [facility] [id number] [address] [place] [address] May, Hyperlipidemia 272.4 [facility] [address] [facility] [id number] [address] [place] [address] May, [facility] [address] [facility] [id number] [address] [place] [id number] May, [facility] [address] [facility] [id number] [place] [id number] Apr, Diabetes mellitus without me ntion of complication, type II or unspecified type, not stated as uncontrolled 250.00 ; Hypothyroidism 244.9 ; Hyperlipidemia 272.4 ; Pain in joint, lower leg 719.46 and RUQ pain 789.01 [facility] [address] [facility] [id number] [address] [place] [phone] Mar, Sinusitis 473.9 [facility] [address] [place] [id number] [place] [id number] Mar, [facility] [address] [place] [id number] [address] [place] [phone] Mar, [facility] [address] [facility] [id number] [address] [place] [id number] Mar, Hematochezia 578.1 [facility] [address] [facility] [id number] [address] [place] [id number] February, Sinusitis 473.9 [facility] [address] [facility] [id number] [address] [place] [id number] February, [facility] [address] [facility] [id number] 16 [place] [id number] Jan, [facility] [address] [facility] [id number] [address] [place] [id number] Jan, [facility] [address] [id number] [address] [place] [address], [place] [address] Dec, [facility] [address] [id number] [address] [place] [address], [place] [address] Dec, [facility] [address] [id number] [address] [place] [address], [place] [address] Dec, [facility] [address] [id number] [address] [place] [address], [place] [address] Dec, [facility] [address] [id number] [address] [place] [address], [place] [address] Dec, [facility] [address] [id number] [address] [place] [address], [place] [address] Dec, [facility] [address] [id number] [address] [place] [address], [place] [address] Dec, [facility] [address] [id number] [address] [place] [address], [place] [address] Dec, [facility] [address] [id number] [address] [place] [address], [place] [address] Dec, [facility] [address] [id number] [address] [place] [address], [place] [address] Dec, [facility] [address] [id number] [address] [place] [address], [place] [address] Dec, [facility] [address] [id number] [address] [place] [address], [place] [address] Nov, [facility] [address] [id number] [address] [place] [address], [place] [address] Nov, [facility] [address] [id number] [address] [place] [address], [place] [address] Nov, [facility] [address] [id number] [address] [place] [address] Nov, [facility] [address] [id number] [address] [place] [address], [place] [address] Oct, [facility] [address] [id number] [address] [place] [address], [place] [address] Oct, [facility] [address] [id number] [address] [place] [address], [place] [address] Oct, [facility] [address] [id number] [address] [place] [address], [place] [address] Oct, [facility] [address] [id number] [address] [place] [address], [place] [address] Oct, [facility] [address] [id number] [address] [place] [address], [place] [address] Oct, [facility] [address] [id number] [address] [place] [address], [place] [address] Sep, [facility] [address] [id number] [address] [place] [address], [place] [address] Sep, [facility] [address] [id number] [address] [place] [address], [place] [address] Sep, [facility] [address] [id number] [address] [place] [address], [place] [address] Sep, [facility] [address] [id number] [address] [place] [address], [place] [address] Sep, [facility] [address] [id number] [address] [place] [address], [place] [address] Sep, [facility] [address] [id number] [address] [place] [address], [place] [address] Sep, [facility] [address] [id number] [address] [place] [address], [place] [address] Aug, [facility] [address] [id number] [address] [place] [address], [place] [address] Aug, [facility] [address] [id number] [address] [place] [address], [place] [address] Aug, [facility] [address] [id number] [address] [place] [address], [place] [address] Aug, [facility] [address] [id number] [address] [place] [address], [place] [address] Aug, [facility] [address] [id number] [address] [place] [address], [place] [address] Aug, [facility] [address] [id number] [address] [place] [address] Aug, [facility] [address] [id number] [address] [place] [address], [place] [address] Aug, [facility] [address] [id number] [address] [place] [address], [place] [address] Aug, [facility] [address] [id number] [address] [place] [address], [place] [address] Aug, [facility] [address] [id number] [address] [place] [address], [place] [address] Aug, [facility] [address] [id number] [address] [place] [address], [place] [address] Aug, [facility] [address] [id number] [address] [place] [address], [place] [address] Aug, [facility] [address] [id number] [address] [place] [address], [place] [address] Aug, [facility] [address] [id number] [address] [place] [id number] Jul, [facility] [address] [id number] [address] [place] [address], [place] [address] Jul, [facility] [address] [id number] [address] [place] [address], [place] [address] Jul, [facility] [address] [id number] [address] [place] [address], [place] [address] Jul, [facility] [address] [id number] [facility] [address] 24 Sep, 2013 [facility] [address] [id number] [address] [place] [address], [place] [address] 24 Sep, 2013 [facility] [address] [id number] [facility] [address] 23 Sep, 2013 [facility] [address] [id number] [address] [place] [address], [place] [address] 23 Sep, 2013 [facility] [address] [id number] [address] [place] [address], [place] [address] 19 Jun, 2013 [facility] [address] [id number] [address] [place] [address], [place] [address] 19 Jun, 2013 [facility] [address] [id number] [address] [place] [address], [place] [address] 11 Jun, 2013 [facility] [address] [id number] [address] [place] [address], [place] [address] 11 Jun, 2013 [facility] [address] [id number] [address] [place] [address], [place] [address] 11 Jun, 2013 [facility] [address] [id number] [address] [place] [address], [place] [address] 11 Jun, 2013 [facility] [address] [id number] [address] [place] [address], [place] [address] 10 Jun, 2013 [facility] [address] [id number] [address] [place] [address], [place] [address] 10 Jun, 2013 [facility] [address] [id number] [address] [place] [address], [place] [address] 09 Jun, 2013 [facility] [address] [id number] [address] [place] [address], [place] [address] 09 Jun, 2013 [facility] [address] [id number] [address] [place] [address], [place] [address] 14 May, 2014 [facility] [address] [id number] [address] [place] [address], [place] [address] May, [facility] [address] [id number] [facility] [address] May, [facility] [address] [id number] [address] [place] [address], [place] [address] May, [facility] [address] [id number] [address] [place] [address], [place] [address] May, [facility] [address] [id number] [address] [place] [address], [place] [address] May, [facility] [address] [id number] [address] [place] [address], [place] [address] Apr, [facility] [address] [id number] [address] [place] [address], [place] [address] Apr, [facility] [address] [id number] [address] [place] [address], [place] [address] Apr, [facility] [address] [id number] [address] [place] [address], [place] [address] Apr, [facility] [address] [id number] [address] [place] [address], [place] [address] Apr, [facility] [address] [id number] [address] [place] [address], [place] [address] Apr, [facility] [address] [id number] [address] [place] [address], [place] [address] Apr, [facility] [address] [id number] [address] [place] [address], [place] [address] Apr, [facility] [address] [id number] [address] [place] [address], [place] [address] Apr, [facility] [address] [id number] [address] [place] [address], [place] [address] Apr, [facility] [address] [id number] [address] [place] [address], [place] [address] Apr, [facility] [address] [id number] [address] [place] [address], [place] [address] Mar, [facility] [address] [id number] [address] [place] [address], [place] [address] Mar, [facility] [address] [id number] [address] [place] [address], [place] [address] Mar, [facility] [address] [id number] [address] [place] [address], [place] [address] Mar, [facility] [address] [id number] [address] [place] [address], [place] [address] February, [facility] [address] [id number] [address] [place] [address], [place] [address] February, [facility] [address] [id number] [address] [place] [address], [place] [address] Jan, [facility] [address] [id number] [address] [place] [address], [place] [address] Jan, [address] [id number] Jan, [facility] [address] [id number] [address] [place] [address], [place] [address] Jan, [facility] [address] [id number] [address] [place] [address], [place] [address] Jan, [facility] [address] [id number] [address] [place] [address], [place] [address] Jan, [facility] [address] [id number] [address] [place] [address], [place] [address] Jan, [facility] [address] [id number] [address] [place] [address], [place] [address] Jan, [facility] [address] [id number] [address] [place] [address], [place] [address] Jan, [facility] [address] [id number] [address] [place] [address], [place] [address] Jan, [facility] [address] [id number] [facility] [address] 10 Jan, 2014 [facility] [address] [id number] [address] [place] [address], [place] [address] Jan, [facility] [address] [id number] [address] [place] [address], [place] [address] Jan, [facility] [address] [id number] [address] [place] [address], [place] [address] Jan, [facility] [address] [id number] [address] [place] [address], [place] [address] Jan, [facility] [address] [id number] [address] [place] [address], [place] [address] Jan, [facility] [address] [id number] [address] [place] [address], [place] [address] Jan, [facility] [address] [id number] [address] [place] [address], [place] [address] Dec, [facility] [address] [id number] [address] [place] [address], [place] [address] Dec, [facility] [address] [id number] [address] [place] [address], [place] [address] Dec, [facility] [address] [id number] [address] [place] [address], [place] [address] Dec, [facility] [address] [id number] [address] [place] [address], [place] [address] Dec, [facility] [address] [id number] [address] [place] [address], [place] [address] Dec, [facility] [address] [id number] [address] [place] [address], [place] [address] Dec, [facility] [address] [id number] [address] [place] [address], [place] [address] Nov, [facility] [address] [id number] [address] [place] [address], [place] [address] Nov, [facility] [address] [id number] [address] [place] [address], [place] [address] Nov, [facility] [address] [id number] [address] [place] [address], [place] [address] Nov, [facility] [address] [id number] [address] [place] [address], [place] [address] Nov, [facility] [address] [id number] [address] [place] [address], [place] [address] Nov, [facility] [address] [id number] [address] [place] [address], [place] [address] Nov, [facility] [address] [id number] [address] [place] [address], [place] [address] Oct, [facility] [address] [id number] [address] [place] [address], [place] [address] Oct, [facility] [address] [id number] [address] [place] [address], [place] [address] Sep, [facility] [address] [id number] [address] [place] [address], [place] [address] Sep, [facility] [address] [id number] [address] [place] [address], [place] [address] Sep, [facility] [address] [id number] [address] [place] [address], [place] [address] Sep, [facility] [address] [id number] [address] [place] [address], [place] [address] Sep, [facility] [address] [id number] [address] [place] [address], [place] [address] Sep, [facility] [address] [id number] [address] [place] [address], [place] [address] Sep, [facility] [address] [id number] [address] [place] [address], [place] [address] Sep, [facility] [address] [id number] [address] [place] [address] Sep, [facility] [address] [id number] [address] [place] [address] Sep, [facility] [address] [id number] [address] [place] [address] Aug, [facility] [address] [id number] [address] [place] [address] Aug, [facility] [address] [id number] [address] [place] [address] Aug, [facility] [address] [id number] [address] [place] [address] Aug, [facility] [address] [id number] [address] [place] [address] Aug, [facility] [address] [id number] [address] [place] [address] Jul, [facility] [address] [id number] [address] [place] [address] Jul, [facility] [address] [id number] [address] [place] [address] Jul, [facility] [address] [id number] [address] [place] [address] Jul, IMMUNIZATIONS No Known Immunizations SOCIAL HISTORY Never Assessed REASON FOR VISIT Requesting last blood platelet levels PLAN OF CARE VITAL SIGNS MEDICATIONS Unknown [...]
--- OUTSIDE RECORDS SUMMARY | 2020-03-16 12:07 | XMS REPORT ---
Author Author Sawthi DORAN [facility] Address [address] [place] [address] Care Team Providers Care Full Stack Web Developer Name Role Phone BRENTON DORAN Unavailable PROBLEMS Type Condition ICD9-CM Code [id number] Code Onset Dates Condition S tatus SNOMED Code Problem Anxiety F41.9 Active 02976524 Problem Chronic tension-type headache, intractable G44.221 Active 972245564 Problem Right upper quadrant pain R10.11 Acti ve 54642723 Problem Vitamin D deficiency E55.9 Active 37020227 Problem Sensorineural hearing loss of right ear H90.41 Active 32317235 Problem BMI 50.0-59.9, adult Z68.43 Active 205902644 Problem Fatty liver K76.0 Active 26967749 7 Problem Frequent falls R29.6 Active 37066 2002 Problem Crohn's disease of both small and large intestin e with complication K50.819 Active 04746201 Problem Type 2 diabetes mellitus with other specified complication E11.69 Active 832351238938 Problem Hyperlipidemia, unspecified E78.5 Ac tive 27747773 Problem MACHUCA (nonalcoholic steatohepatitis) K75.81 Active 711105743 Problem Iron deficiency anemia due to chronic blood loss D 50.0 Active 01884019 Problem Periodic limb movement sleep disorder G47.61 Active 264086521 Problem Obstructive sleep apnea on CPAP G47.33 Active 07948587 Problem Essential hypertension I10 Active 71030032 Problem Hyperlipidemia E78.5 Active 33601 004 Problem Chronic diarrhea K52.9 Active 236 532891 Problem Acquired hypothyroidism E03.9 Active 996553072 Problem Vitamin B12 deficiency E53.8 Active 271888323 Problem Major depressive disorder, recurrent episode, moderate F33.1 Active [id number] ALLERGIES No Information ENCOUNTERS Encounter Location Date Diagnosis [facility] [address] [facility] [id number] [address], [place] [address] Jan, [facility] [address] [place] [id number] [address] [place] [phone] Jan, [facility] [address] [id number] [address] [place] [phone] Jan, Diarrhea due to staphylococc us A04.8 and Diarrhea, unspecified type R19.7 [place] [address] [address] Jan, Acquired hypothyroidism E03. 9 ; Type 2 diabetes mellitus with other specified complication E11.69 ; Hyperlipidemia E78.5 ; Essential hypertension I10 ; Major depressive disorder, recurrent episode, moderate F33.1 and Vitamin D deficiency E55.9 [place] [address] [address] Jan, Type 2 diabetes mellitus wit h other specified complication E11.69 ; Hyperlipidemia E78.5 ; Essential hypertension I10 ; Acquired hypothyroidism E03.9 ; Major depressive disorder, recurrent episode, moderate F33.1 ; Vitamin D deficiency E55.9 ; Sinus congestion R09.81 and BMI 50.0-59.9, adult Z68.43 [place] [address] [address] Dec, [facility] [address] [address] Sep, Encounter for immunization Z 23 [place] [address] [address] Sep, [place] [address] [address] Sep, Vitamin B12 deficiency E53.8 [place] [address] [address] Aug, [place] [address] [address] Aug, BMI 60.0-69.9, adult Z68.44 and Acute non-recurrent maxillary sinusitis J01.00 [facility] [address] [facility] [id number] [address] [place] [id number] 14 Aug, 2017 [facility] [address] [place] [id number] [address] [place] [id number] 02 Aug, 2017 Medicare annual wellness vis it, initial Z00.00 ; Screening for breast cancer Z12.31 ; BMI 40.0-44.9, adult Z68.41 and Acquired hypothyroidism E03.9 [place] [address] [place] [id number] [address] [place] [phone] Jul, Actinic keratosis L57.0 [place] [address] [place] [id number] [place] [phone] Jul, Actinic keratosis L57.0 [place] [address] [place] [id number] [place] [address] Jul, Type 2 diabetes mellitus wit h other specified complication E11.69 ; Actinic keratosis L57.0 and Hypothyroidism, unspecified E03.9 [place] [address] [place] [id number] [address] [place] [id number] Jul, [place] [address] [place] [id number] [place] [address] Jul, [place] [address] [place] [id number] [place] [address] Jul, Vitamin B12 deficiency E53.8 [place] [address] [place] [id number] [address] [place] [id number] Jun, Acquired hypothyroidism E03. 9 and Chronic tension-type headache, intractable G44.221 [place] [address] [place] [id number] [place] [address] Jun, Back muscle spasm M62.830 an d BMI 50.0-59.9, adult Z68.43 [place] [address] [place] [id number] [address] [place] [id number] 05 Jun, 2017 Vitamin B12 deficiency E53.8 [facility] [address] [id number] [address] [place] [id number] Jun, Crohn's disease of both smal l and large intestine with complication K50.819 [facility] [address] [facility] [id number] [address] [place] [id number] Jun, Crohn's disease of both smal l and large intestine with complication K50.819 [facility] [address] [id number] [address] [place] [phone] May, Hyperlipidemia E78.5 ; Anxie ty F41.9 and Essential hypertension I10 [facility] [address] [id number] [address] [place] [phone] May, [facility] [address] [facility] [id number] [address] [place] [phone] May, Encounter for immunization Z 23 and Vitamin B12 deficiency E53.8 [facility] [address] [facility] [id number] [address] [place] [id number] May, [facility] [address] [id number] [address] [place] [phone] Apr, [facility] [address] [facility] [id number] [address] [place] [phone] Apr, [facility] [address] [facility] [id number] [address] [place] [address] Apr, Crohn's disease of both smal l and large intestine with complication K50.819 [facility] [address] [id number] [address] [place] [phone] Apr, Vitamin B12 deficiency E53.8 [facility] [address] [facility] [id number] [address] [place] [id number] Apr, Crohn's disease of both smal l and large intestine with complication K50.819 and Acute pain of right shoulder M25.511 [facility] [address] [facility] [id number] [address] [place] [id number] Mar, Type 2 diabetes mellitus wit hout complication E11.9 ; Frequent falls R29.6 and Other chest pain R07.89 [facility] [address] [facility] [id number] [address] [place] [id number] Mar, [facility] [address] [facility] [id number] [address] [place] [phone] Mar, [facility] [address] [facility] [id number] [address] [place] [id number] Mar, Type 2 diabetes mellitus wit hout complication E11.9 and Blurry vision, bilateral H53.8 [place] [address] [facility] [id number] [address] [place] [id number] Mar, Vitamin B12 deficiency E53.8 [place] [address] [place] [id number] [address] [place] [id number] Mar, Crohn's disease of both smal l and large intestine with complication K50.819 [facility] [address] [facility] [id number] [address] [place] [id number] February, Vitamin B12 deficiency E53.8 [place] [address] [facility] [id number] [address] [place] [id number] Jan, Crohn's disease of both smal l and large intestine with complication K50.819 [facility] [address] [facility] [id number] [address] [place] [id number] Jan, Crohn's disease of both smal l and large intestine with complication K50.819 [facility] [address] [facility] [id number] [address] [place] [address] Jan, Dark brown-colored urine R82 .99 and Acute suppurative otitis media of right ear without spontaneous rupture of tympanic membrane, recurrence not specified H66.001 [facility] [address] [facility] [id number] [address] [place] [address] Jan, Encounter for immunization Z 23 [facility] [address] [place] [id number] [address] [place] [phone] Dec, Crohn's disease of both smal l and large intestine with complication K50.819 and Eustachian tube dysfunction, right H69.81 [place] [address] [place] [id number] [place] [phone] Dec, [place] [address] [address] Dec, Contusion of right knee, ini tial encounter S80.01XA [place] [address] [address] Dec, [place] [address] [address] Dec, Acute pain of right knee M25 .561 [place] [address] [address] Dec, Iron deficiency anemia due t o chronic blood loss D50.0 [place] [address] [place] [id number] [place] [address] Dec, Hyperlipidemia E78.5 ; Type 2 diabetes mellitus without complication E11.9 ; Vitamin B12 deficiency E53.8 ; Essential hypertension I10 ; Obstructive sleep apnea on CPAP G47.33 and Periodic limb movement sleep disorder G47.61 [place] [address] [place] [id number] [place] [phone] Nov, Type 2 diabetes mellitus wit hout complication E11.9 ; Vitamin B12 deficiency E53.8 ; Hyperlipidemia E78.5 ; Essential hypertension I10 ; Obstructive sleep apnea on CPAP G47.33 ; Periodic limb movement sleep disorder G47.61 ; Anxiety F41.9 ; Acquired hypothyroidism E03.9 and Chronic tension-type headache, intractable G44.221 [place] [id number] [place] [address] 10 Nov, 2016 Crohn's disease of both smal l and large intestine with complication K50.819 [place] [address] [place] [id number] [place] [address] 10 Nov, 2016 Vitamin B12 deficiency E53.8 [facility] [address] [id number] [address] [place] [id number] Oct, [facility] [address] [id number] [address] [place] [phone] Oct, Vitamin B12 deficiency E53.8 [facility] [address] [id number] [address] [place] [phone] Sep, [facility] [address] [id number] [address] [place] [id number] Sep, Vitamin B12 deficiency E53.8 [facility] [address] [id number] [address] [place] [phone] Aug, [facility] [address] [id number] [address] [place] [address] Aug, Vitamin B12 deficiency E53.8 [facility] [address] [id number] [address] [place] [phone] Aug, [facility] [address] [id number] [address] [place] [phone] 24 Jul, 2016 Elevated ALT measurement R74 .0 [facility] [address] [id number] [address] [place] [id number] Jul, Hematuria R31.9 ; Acute righ t-sided thoracic back pain M54.6 ; Major depressive disorder, recurrent episode, moderate F33.1 and Elevated ALT measurement R74.0 [facility] [address] [id number] [address] [place] [phone] Jul, [facility] [address] [id number] [address] [place] [id number] 19 Jul, 2016 Elevated ALT measurement R74 .0 [facility] [address] [facility] [id number] [address] [place] [id number] 14 Jul, 2016 Iron deficiency anemia due t o chronic blood loss D50.0 [place] [id number] [facility] [id number] [address] [place] [id number] 14 Jul, 2016 Type 2 diabetes mellitus wit hout complication E11.9 ; Acquired hypothyroidism E03.9 ; Iron deficiency anemia due to chronic blood loss D50.0 ; Hyperlipidemia E78.5 and Essential hypertension I10 [place] [address] [facility] [id number] [address] [place] [phone] 26 Jun, 2016 [place] [address] [facility] [id number] [address] [place] [id number] 20 Jun, 2016 Vitamin B12 deficiency E53.8 [place] [address] [facility] [id number] [address] [place] [id number] 16 Jun, 2016 Type 2 diabetes mellitus wit hout complication E11.9 ; Acquired hypothyroidism E03.9 ; Iron deficiency anemia due to chronic blood loss D50.0 ; Hyperlipidemia E78.5 ; Essential hypertension I10 ; Chronic tension-type headache, intractable G44.221 ; Pulsatile tinnitus, bilateral H93.13 ; Obstructive sleep apnea on CPAP G47.33 and Major depressive disorder, recurrent episode, moderate F33.1 [place] [address] [facility] [id number] [address] [place] [phone] May, Vitamin B12 deficiency E53.8 [place] [address] [facility] [id number] [address] [place] [id number] 08 May, 2016 [place] [address] [facility] [id number] [address] [place] [phone] Apr, Vitamin B12 deficiency E53.8 [place] [address] [facility] [id number] [address] [place] [id number] 05 Apr, 2016 [place] [address] [facility] [id number] [address] [place] [id number] 28 Mar, 2016 Chronic tension-type headach e, intractable G44.221 and Major depressive disorder, recurrent episode, moderate F33.1 [place] [address] [facility] [id number] [address] [place] [id number] 14 Mar, 2016 Vitamin B12 deficiency E53.8 [facility] [address] [id number] [address] [place] [id number] February, [facility] [address] [id number] [address] [place] [address] February, Vitamin B12 deficiency E53.8 [facility] [address] [facility] [id number] [address] [place] [phone] February, [facility] [address] [id number] [address] [place] [address] Jan, Dysuria R30.0 [facility] [address] [facility] [id number] [address] [place] [id number] Jan, Type 2 diabetes mellitus wit hout complication E11.9 and Essential hypertension I10 [facility] [address] [facility] [id number] [address] [place] [id number] 15 Jan, 2016 Chronic diarrhea K52.9 [facility] [address] [id number] [address] [place] [phone] Jan, [facility] [address] [id number] [address] [place] [phone] Jan, Chronic diarrhea K52.9 [facility] [address] [id number] [address] [place] [phone] Jan, [facility] [address] [id number] [address] [place] [phone] Jan, Dysuria R30.0 [facility] [address] [facility] [id number] [address] [place] [phone] 07 Jan, 2016 Vitamin B12 deficiency E53.8 [facility] [address] [facility] [id number] [address] [place] [phone] 07 Jan, 2016 Dysuria R30.0 and Iron defic iency anemia due to chronic blood loss D50.0 [facility] [address] [facility] [id number] [address] [place] [id number] 05 Jan, 2016 Dysuria R30.0 [facility] [address] [facility] [id number] [address] [place] [phone] 04 Jan, 2016 [facility] [address] [id number] 15 Dec, 2015 [facility] [address] [place] [id number] [place] [address] 11 Dec, 2015 Iron deficiency anemia due t o chronic blood loss D50.0 [facility] [address] [place] [id number] [place] [address] 10 Dec, 2015 Dysuria R30.0 ; Fatigue R53. 83 ; Hyperlipidemia E78.5 and Diarrhea R19.7 [place] [address] [id number] Dec, [facility] [address] [address] Dec, [facility] [address] [address] 10 Nov, 2015 Vitamin B12 deficiency E53.8 [place] [address] [address] Oct, Vitamin B12 deficiency E53.8 [facility] [address] [place] [id number] [address] [place] [phone] Oct, [facility] [address] [place] [id number] [address] [place] [id number] Oct, Headache R51 [facility] [address] [facility] [id number] [address] [place] [id number] 07 Oct, 2015 Essential hypertension I10 ; Type 2 diabetes mellitus without complication E11.9 ; Vitamin B12 deficiency E53.8 ; Acquired hypothyroidism E03.9 ; Iron deficiency anemia due to chronic blood loss D50.0 and Hyperlipidemia E78.5 [facility] [address] [place] [id number] [address] [place] [id number] Sep, Essential hypertension I10 ; Vitamin B12 deficiency E53.8 ; Iron deficiency anemia due to chronic blood loss D50.0 ; Type 2 diabetes mellitus without complication E11.9 ; Hyperlipidemia E78.5 and Acquired hypothyroidism E03.9 [facility] [address] [id number] Sep, [facility] [address] [place] [id number] [place] [address] Sep, [facility] [address] [address] Jul, [facility] [address] [place] [id number] [place] [address] Jun, [facility] [address] [id number] Jun, [facility] [address] [address] Jun, Hyperlipidemia 272.4 ; Iron deficiency anemia 280.9 ; Hypothyroidism 244.9 ; Diabetes mellitus without mention of complication, type II or unspecified type, not stated as uncontrolled 250.00 and Hypertension 401.9 [facility] [address] [id number] Jun, [facility] [address] [place] [id number] [place] [address] Jun, [facility] [address] [place] [id number] [address] [place] [id number] May, Hyperlipidemia 272.4 [facility] [address] [place] [id number] [address] [place] [id number] May, [facility] [address] [id number] May, [facility] [address] [place] [id number] [place] [address] Apr, Diabetes mellitus without me ntion of complication, type II or unspecified type, not stated as uncontrolled 250.00 ; Hypothyroidism 244.9 ; Hyperlipidemia 272.4 ; Pain in joint, lower leg 719.46 and RUQ pain 789.01 [facility] [address] [id number] [address] [place] [id number] 15 Mar, 2015 Sinusitis 473.9 [facility] [address] [id number] [address] [place] [id number] 04 Mar, 2015 [facility] [address] [id number] [address] [place] [phone] Mar, [facility] [address] [id number] [address] [place] [id number] Mar, Hematochezia 578.1 [facility] [address] [id number] [address] [place] [id number] February, Sinusitis 473.9 [facility] [address] [id number] [address] [place] [address] February, [facility] [address] [id number] [address] [place] [phone] Jan, [facility] [address] [id number] [address] [place] [phone] Jan, [facility] [address] [id number] [address] [place] [phone] Dec, [facility] [address] [id number] [address] [place] [phone] Dec, [facility] [address] [id number] [address] [place] [phone] Dec, [facility] [address] [id number] [address] [place] [phone] Dec, [facility] [address] [id number] [address] [place] [phone] Dec, [facility] [address] [id number] [address] [place] [phone] Dec, [facility] [address] [id number] [address] [place] [address], [place] [address] Dec, [facility] [address] [id number] [address] [place] [address], [place] [address] Dec, [facility] [address] [id number] [address] [place] [address], [place] [address] Dec, [facility] [address] [id number] [address] [place] [address], [place] [address] Dec, [facility] [address] [id number] [address] [place] [address], [place] [address] Dec, [facility] [address] [id number] [address] [place] [address], [place] [address] Nov, [facility] [address] [id number] [address] [place] [address], [place] [address] Nov, [facility] [address] [id number] [address] [place] [address], [place] [address] Nov, [facility] [address] [id number] [address] [place] [address], [place] [address] Nov, [facility] [address] [id number] [address] [place] [address], [place] [address] Oct, [facility] [address] [id number] [address] [place] [address], [place] [address] Oct, [facility] [address] [id number] [address] [place] [address], [place] [address] Oct, [facility] [address] [id number] [address] [place] [address], [place] [address] Oct, [facility] [place] [facility] [address] [id number] [address] [place] [address], [place] [address] Oct, [facility] [address] [id number] [address] [place] [address], [place] [address] Oct, [facility] [address] [id number] [address] [place] [address], [place] [address] Sep, [facility] [address] [id number] [address] [place] [address], [place] [address] Sep, [facility] [address] [id number] [address] [place] [address], [place] [address] Sep, [facility] [address] [id number] [address] [place] [address], [place] [address] Sep, [facility] [address] [id number] [address] [place] [address], [place] [address] Sep, [facility] [address] [id number] [address] [place] [address], [place] [address] Sep, [facility] [address] [id number] [address] [place] [address], [place] [address] Sep, [facility] [address] [id number] [address] [place] [address], [place] [address] Aug, [facility] [address] [id number] [address] [place] [address], [place] [address] Aug, [facility] [address] [id number] [address] [place] [address], [place] [address] Aug, [facility] [address] [id number] [address] [place] [address], [place] [address] Aug, [facility] [address] [id number] [address] [place] [address], [place] [address] Aug, [facility] [address] [id number] [address] [place] [address], [place] [address] Aug, [facility] [address] [id number] [address] [place] [address], [place] [address] Aug, [facility] [address] [id number] [address] [place] [address], [place] [address] Aug, [facility] [address] [id number] [address] [place] [address], [place] [address] 17 Aug, 2014 [facility] [address] [id number] [address] [place] [address] Aug, [facility] [address] [id number] [address] [place] [address], [place] [address] Aug, [facility] [address] [id number] [address] [place] [address] Aug, [facility] [address] [id number] [address] [place] [address], [place] [address] Aug, [facility] [address] [id number] [address] [place] [address] Aug, [facility] [address] [id number] [address] [place] [address], [place] [address] Jul, [facility] [address] [id number] [address] [place] [address], [place] [address] Jul, [facility] [address] [id number] [address] [place] [address] Jul, [facility] [address] [id number] [address] [place] [address], [place] [address] Jul, [facility] [address] [id number] [address] [place] [address] 24 Jun, 2014 [facility] [address] [id number] [address] [place] [address], [place] [address] 24 Jun, 2014 [facility] [address] [id number] [address] [place] [address], [place] [address] 23 Jun, 2013 [facility] [address] [id number] [address] [place] [address] 23 Jun, 2013 [facility] [address] [id number] [address] [place] [address], [place] [address] 19 Jun, 2013 [facility] [address] [id number] [address] [place] [address], [place] [address] 19 Jun, 2013 [facility] [address] [id number] [address] [place] [address], [place] [address] 11 Jun, 2013 [facility] [address] [id number] [facility] [place] [address] 11 Jun, 2013 [facility] [address] [id number] [facility] [place] [address] 11 Jun, 2014 [facility] [address] [id number] [facility] [place] [address] 11 Jun, 2014 [facility] [address] [id number] [facility] [place] [address] Jun, 2013 [facility] [address] [id number] [facility] [place] [address] Jun, 2013 [facility] [address] [id number] [address] [place] [address], [place] [address] Jun, [facility] [address] [id number] [address] [place] [address], [place] [address] Jun, [facility] [address] [id number] [address] [place] [address], [place] [address] May, [facility] [address] [id number] [address] [place] [address], [place] [address] May, [facility] [address] [id number] [address] [place] [address], [place] [address] May, [facility] [address] [id number] [address] [place] [address], [place] [address] May, [facility] [address] [id number] [address] [place] [address], [place] [address] May, [facility] [address] [id number] [address] [place] [address], [place] [address] May, [facility] [address] [id number] [address] [place] [address], [place] [address] Apr, [facility] [address] [id number] [address] [place] [address], [place] [address] Apr, [facility] [address] [id number] [address] [place] [address], [place] [address] Apr, [facility] [address] [id number] [facility] [place] [address] Apr, [facility] [address] [id number] [facility] [place] [address] Apr, [facility] [address] [id number] [facility] [place] [address] Apr, [facility] [address] [id number] [address] [place] [address], [place] [address] Apr, [facility] [address] [id number] [address] [place] [address], [place] [address] Apr, [facility] [address] [id number] [address] [place] [address], [place] [address] Apr, [facility] [address] [id number] [address] [place] [address], [place] [address] Apr, [facility] [address] [id number] [address] [place] [address], [place] [address] Apr, [facility] [address] [id number] [address] [place] [address], [place] [address] Mar, [facility] [address] [id number] [address] [place] [address], [place] [address] Mar, [facility] [address] [id number] [address] [place] [address], [place] [address] Mar, [facility] [address] [id number] [address] [place] [address], [place] [address] Mar, [facility] [address] [id number] [address] [place] [address], [place] [address] February, [facility] [address] [id number] [address] [place] [address], [place] [address] February, [facility] [address] [id number] [address] [place] [address], [place] [address] Jan, [facility] [address] [id number] [address] [place] [address], [place] [address] Jan, [facility] [address] [place] [id number] Jan, [facility] [address] [id number] [address] [place] [address], [place] [address] Jan, [facility] [address] [id number] [address] [place] [address], [place] [address] Jan, [facility] [address] [id number] [address] [place] [address], [place] [address] Jan, [facility] [address] [id number] [address] [place] [address], [place] [address] Jan, [facility] [address] [id number] [address] [place] [address], [place] [address] Jan, [facility] [address] [id number] [address] [place] [address], [place] [address] Jan, [facility] [address] [id number] [address] [place] [address], [place] [address] Jan, [facility] [address] [id number] [address] [place] [address], [place] [address] Jan, [facility] [address] [id number] [address] [place] [address], [place] [address] Jan, [facility] [address] [id number] [address] [place] [address], [place] [address] Jan, [facility] [address] [id number] [address] [place] [address], [place] [address] Jan, [facility] [address] [id number] [address] [place] [address], [place] [address] Jan, [facility] [address] [id number] [address] [place] [address], [place] [address] Jan, [facility] [address] [id number] [address] [place] [address], [place] [address] Jan, [facility] [address] [id number] [address] [place] [address], [place] [address] 18 Dec, 2013 [facility] [address] [id number] [address] [place] [address], [place] [address] Dec, [facility] [address] [id number] [address] [place] [address], [place] [address] Dec, [facility] [address] [id number] [address] [place] [address], [place] [address] Dec, [facility] [address] [id number] [address] [place] [address], [place] [address] Dec, [facility] [address] [id number] [address] [place] [address], [place] [address] Dec, [facility] [address] [id number] [address] [place] [address], [place] [address] Dec, [facility] [address] [id number] [address] [place] [address], [place] [address] Nov, [facility] [address] [id number] [address] [place] [address], [place] [address] Nov, [facility] [address] [id number] [address] [place] [address], [place] [address] Nov, [facility] [address] [id number] [address] [place] [address], [place] [address] Nov, [facility] [address] [id number] [address] [place] [address], [place] [address] Nov, [facility] [address] [id number] [address] [place] [address], [place] [address] Nov, [facility] [address] [id number] [address] [place] [address], [place] [address] Nov, [facility] [address] [id number] [address] [place] [address], [place] [address] Oct, [facility] [address] [id number] [address] [place] [address], [place] [address] Oct, [facility] [address] [id number] [address] [place] [address], [place] [address] Sep, [facility] [address] [id number] [address] [place] [address], [place] [address] Sep, [facility] [address] [id number] [address] [place] [address], [place] [address] Sep, [facility] [address] [id number] [address] [place] [address], [place] [address] Sep, [facility] [address] [id number] [address] [place] [address], [place] [address] Sep, [facility] [address] [id number] [address] [place] [address], [place] [address] Sep, [facility] [address] [id number] [address] [place] [address], [place] [address] Sep, [facility] [address] [id number] [address] [place] [address], [place] [address] Sep, [facility] [address] [id number] [address] [place] [address], [place] [address] Sep, [facility] [address] [id number] [address] [place] [address], [place] [address] Sep, [facility] [address] [id number] [address] [place] [address], [place] [address] Aug, [facility] [address] [id number] [address] [place] [address], [place] [address] Aug, [facility] [address] [id number] [address] [place] [address], [place] [address] Aug, [facility] [address] [id number] [address] [place] [address], [place] [address] Aug, [facility] [address] [id number] [address] [place] [address], [place] [address] Aug, [facility] [address] [id number] [address] [place] [address] Jul, [facility] [address] [facility] [id number] [address] [place] [address] Jul, [facility] [address] [facility] [id number] [address] [place] [address] Jul, [facility] [address] [facility] [id number] [address] [place] [address] Jul, IMMUNIZATIONS No Known Immunizations SOCIAL HISTORY Never Assessed REASON FOR VISIT Refill Request PLAN OF CARE VITAL SIGNS MEDICATIONS Medication Instructions Dosage Frequency Start Date End Date Duration S kurtis MetFORMIN HCl ER 500 mg Orally 2 times a day 2 tablets 12h 24 2016 90 days Active RESULTS No Results PROCEDURES [...]
--- OUTSIDE RECORDS SUMMARY | 2020-03-16 12:07 | XMS REPORT ---
Author Author Swathi DORAN Organization [facility] Address [address] [place] [address] Care Team Providers Care Director Of Assessment Name Role Phone BRENTON DORAN Unavailable PROBLEMS Type Condition ICD9-CM Code [id number] Code Onset Dates Condition S tatus SNOMED Code Problem Anxiety F41.9 Active 17818068 Problem Chronic tension-type headache, intractable G44.221 Active 890237251 Problem Right upper quadrant pain R10.11 Acti ve 25791940 Problem Vitamin D deficiency E55.9 Active 79881658 Problem Sensorineural hearing loss of right ear H90.41 Active 35222737 Problem BMI 50.0-59.9, adult Z68.43 Active 497776289 Problem Fatty liver K76.0 Active 37550215 7 Problem Frequent falls R29.6 Active 47095 2001 Problem Crohn's disease of both small and large intestin e with complication K50.819 Active 85400802 Problem Type 2 diabetes mellitus with other specified complication E11.69 Active 597732957878 Problem Hyperlipidemia, unspecified E78.5 Ac tive 77324204 Problem MACHUCA (nonalcoholic steatohepatitis) K75.81 Active 334275785 Problem Iron deficiency anemia due to chronic blood loss D 50.0 Active 23305393 Problem Periodic limb movement sleep disorder G47.61 Active 099877945 Problem Obstructive sleep apnea on CPAP G47.33 Active 86368613 Problem Essential hypertension I10 Active 17987652 Problem Hyperlipidemia E78.5 Active 53271 004 Problem Chronic diarrhea K52.9 Active 236 065899 Problem Acquired hypothyroidism E03.9 Active 936803923 Problem Vitamin B12 deficiency E53.8 Active 760368294 Problem Major depressive disorder, recurrent episode, moderate F33.1 Active 120704108 ALLERGIES Substance Reaction Event Type Date Status Penicillin V Potassium Unknown Drug Allergy Jan, Activ e Niacin Unknown Drug Allergy Jan, Active Morphine Sulfate Unknown Drug Allergy Jan, Active Lipitor abdominal pain Drug Allergy Jan, Active Dilaudid Unknown Drug Allergy Jan, Active Bactrim Unknown Drug Allergy Jan, Active Amoxicillin Unknown Drug Allergy Jan, Active Adhesive Unknown Non Drug Allergy Jan, Active Sulfamethoxazole-Trimethoprim Unknown Drug Allergy Jan, 8 Active Tetanus&diphtheria Toxoid Unknown Non Drug Allergy Jan, 8 Active Influenza Virus Vacc,specific Got flu and was told to never get the vaccine again Non Drug Allergy Jan, Active ENCOUNTERS Encounter Location Date Diagnosis [facility] [address] [address] May, [place] [address] [address] Apr, Nonhealing wound of heel S91 .309A and Body mass index (BMI) of 50- 59.9 in adult Z68.43 [place] [address] [address] Mar, [place] [address] [address] Mar, BMI 50.0-59.9, adult Z68.43 ; Flank pain R10.9 and Weight loss counseling, encounter for Z71.3 [place] [address] [address] [place] [id number] [place] [phone] February, [place] [address] [address] [place] [id number] [address] [place] [phone] Jan, [facility] [address] [place] [id number] [place] [address] Jan, [facility] [address] [address] Jan, Diarrhea due to staphylococc us A04.8 and Diarrhea, unspecified type R19.7 [facility] [address] [place] [id number] [place] [address] Jan, Acquired hypothyroidism E03. 9 ; Type 2 diabetes mellitus with other specified complication E11.69 ; Hyperlipidemia E78.5 ; Essential hypertension I10 ; Major depressive disorder, recurrent episode, moderate F33.1 and Vitamin D deficiency E55.9 [place] [address] [address] 03 Jan, 2018 Type 2 diabetes mellitus wit h other specified complication E11.69 ; Hyperlipidemia E78.5 ; Essential hypertension I10 ; Acquired hypothyroidism E03.9 ; Major depressive disorder, recurrent episode, moderate F33.1 ; Vitamin D deficiency E55.9 ; Sinus congestion R09.81 and BMI 50.0-59.9, adult Z68.43 [place] [address] [address] Dec, [place] [address] [address] Sep, Encounter for immunization Z 23 [place] [address] [address] 05 Sep, 2017 [place] [address] [address] Sep, Vitamin B12 deficiency E53.8 [place] [address] [address] 24 Aug, 2017 [place] [address] [address] 20 Aug, 2017 BMI 60.0-69.9, adult Z68.44 and Acute non-recurrent maxillary sinusitis J01.00 [place] [address] [address] [place] [id number] [place] [address] 14 Aug, 2017 [place] [address] [address] 02 Aug, 2017 Medicare annual wellness vis it, initial Z00.00 ; Screening for breast cancer Z12.31 ; BMI 40.0-44.9, adult Z68.41 and Acquired hypothyroidism E03.9 [place] [address] [address] Jul, Actinic keratosis L57.0 [facility] [address] [facility] [id number] [address] [place] [address] Jul, Actinic keratosis L57.0 [place] [address] [address] [facility] [id number] [address] [place] [id number] Jul, Type 2 diabetes mellitus wit h other specified complication E11.69 ; Actinic keratosis L57.0 and Hypothyroidism, unspecified E03.9 [place] [address] [address] [facility] [id number] [address] [place] [id number] Jul, [place] [address] [address] [facility] [id number] [address] [place] [phone] Jul, [place] [address] [place] [id number] [place] [address] Jul, Vitamin B12 deficiency E53.8 [place] [address] [address] [place] [id number] [place] [address] Jun, Acquired hypothyroidism E03. 9 and Chronic tension-type headache, intractable G44.221 [place] [address] [address] [facility] [id number] [address] [place] [address] Jun, Back muscle spasm M62.830 an d BMI 50.0-59.9, adult Z68.43 [place] [address] [address] [place] [id number] [place] [id number] Jun, Vitamin B12 deficiency E53.8 [place] [address] [address] [facility] [id number] [address] [place] [address] Jun, Crohn's disease of both smal l and large intestine with complication K50.819 [place] [address] [place] [id number] [place] [id number] Jun, Crohn's disease of both smal l and large intestine with complication K50.819 [place] [address] [place] [id number] [place] [address] May, Hyperlipidemia E78.5 ; Anxie ty F41.9 and Essential hypertension I10 [place] [address] [address] [facility] [id number] [address] [place] [phone] May, [place] [address] [place] [id number] [place] [phone] May, Encounter for immunization Z 23 and Vitamin B12 deficiency E53.8 [place] [address] [place] [id number] [place] [id number] May, [place] [address] [address] [facility] [id number] [address] [place] [phone] Apr, [place] [address] [place] [id number] [place] [address] Apr, [place] [address] [place] [id number] [place] [phone] Apr, Crohn's disease of both smal l and large intestine with complication K50.819 [place] [address] [place] [id number] [place] [address] Apr, Vitamin B12 deficiency E53.8 [place] [address] [address] [place] [id number] [place] [address] Apr, Crohn's disease of both smal l and large intestine with complication K50.819 and Acute pain of right shoulder M25.511 [place] [address] [address] [place] [id number] [place] [address] Mar, Type 2 diabetes mellitus wit hout complication E11.9 ; Frequent falls R29.6 and Other chest pain R07.89 [place] [address] [address] [facility] [id number] [address] [place] [address] Mar, [place] [address] [place] [id number] [place] [address] Mar, [place] [address] [place] [id number] [place] [address] Mar, Type 2 diabetes mellitus wit hout complication E11.9 and Blurry vision, bilateral H53.8 [facility] [address] [facility] [id number] [address] [place] [id number] Mar, Vitamin B12 deficiency E53.8 [facility] [address] [facility] [id number] [address] [place] [address] Mar, Crohn's disease of both smal l and large intestine with complication K50.819 [facility] [address] [facility] [id number] [address] [place] [phone] February, Vitamin B12 deficiency E53.8 [place] [address] [address] [facility] [id number] [address] [place] [id number] Jan, Crohn's disease of both smal l and large intestine with complication K50.819 [place] [address] [address] [facility] [id number] [address] [place] [id number] Jan, Crohn's disease of both smal l and large intestine with complication K50.819 [facility] [address] [facility] [id number] [address] [place] [address] Jan, Dark brown-colored urine R82 .99 and Acute suppurative otitis media of right ear without spontaneous rupture of tympanic membrane, recurrence not specified H66.001 [place] [address] [address] [facility] [id number] [address] [place] [phone] Jan, Encounter for immunization Z 23 [place] [address] [address] [facility] [id number] [address] [place] [id number] Dec, Crohn's disease of both smal l and large intestine with complication K50.819 and Eustachian tube dysfunction, right H69.81 [facility] [address] [facility] [id number] [address] [place] [address] Dec, [facility] [address] [facility] [id number] [address] [place] [address] Dec, Contusion of right knee, ini tial encounter S80.01XA [place] [address] [place] [id number] [place] [address] Dec, [place] [address] [address] Dec, Acute pain of right knee M25 .561 [place] [address] [place] [id number] [place] [address] Dec, Iron deficiency anemia due t o chronic blood loss D50.0 [place] [address] [place] [id number] [place] [address] Dec, Hyperlipidemia E78.5 ; Type 2 diabetes mellitus without complication E11.9 ; Vitamin B12 deficiency E53.8 ; Essential hypertension I10 ; Obstructive sleep apnea on CPAP G47.33 and Periodic limb movement sleep disorder G47.61 [place] [address] [address] Nov, Type 2 diabetes mellitus wit hout complication E11.9 ; Vitamin B12 deficiency E53.8 ; Hyperlipidemia E78.5 ; Essential hypertension I10 ; Obstructive sleep apnea on CPAP G47.33 ; Periodic limb movement sleep disorder G47.61 ; Anxiety F41.9 ; Acquired hypothyroidism E03.9 and Chronic tension-type headache, intractable G44.221 [place] [address] [place] [id number] [place] [address] Nov, Crohn's disease of both smal l and large intestine with complication K50.819 [place] [address] [place] [id number] [place] [address] Nov, Vitamin B12 deficiency E53.8 [place] [id number] [place] [phone] Oct, [place] [address] [address] Oct, Vitamin B12 deficiency E53.8 [place] [address] [place] [id number] [place] [address] Sep, [place] [address] [id number] [address] [place] [phone] Sep, Vitamin B12 deficiency E53.8 [facility] [address] [id number] [address] [place] [phone] Aug, [facility] [address] [id number] [address] [place] [id number] 14 Aug, 2016 Vitamin B12 deficiency E53.8 [facility] [address] [id number] [address] [place] [id number] Aug, [facility] [address] [id number] [address] [place] [id number] 24 Jul, 2016 Elevated ALT measurement R74 .0 [facility] [address] [facility] [id number] [address] [place] [id number] Jul, Hematuria R31.9 ; Acute righ t-sided thoracic back pain M54.6 ; Major depressive disorder, recurrent episode, moderate F33.1 and Elevated ALT measurement R74.0 [facility] [address] [id number] [address] [place] [phone] Jul, [facility] [address] [id number] [address] [place] [id number] 19 Jul, 2016 Elevated ALT measurement R74 .0 [facility] [address] [facility] [id number] [address] [place] [id number] 14 Jul, 2016 Iron deficiency anemia due t o chronic blood loss D50.0 [facility] [address] [facility] [id number] [address] [place] [id number] 14 Jul, 2016 Type 2 diabetes mellitus wit hout complication E11.9 ; Acquired hypothyroidism E03.9 ; Iron deficiency anemia due to chronic blood loss D50.0 ; Hyperlipidemia E78.5 and Essential hypertension I10 [facility] [address] [id number] [address] [place] [id number] Jun, [facility] [address] [facility] [id number] [address] [place] [id number] Jun, Vitamin B12 deficiency E53.8 [facility] [address] [facility] [id number] [address] [place] [id number] 16 Jun, 2016 Type 2 diabetes mellitus wit hout complication E11.9 ; Acquired hypothyroidism E03.9 ; Iron deficiency anemia due to chronic blood loss D50.0 ; Hyperlipidemia E78.5 ; Essential hypertension I10 ; Chronic tension-type headache, intractable G44.221 ; Pulsatile tinnitus, bilateral H93.13 ; Obstructive sleep apnea on CPAP G47.33 and Major depressive disorder, recurrent episode, moderate F33.1 [place] [address] [address] [facility] [id number] [address] [place] [id number] May, Vitamin B12 deficiency E53.8 [place] [address] [address] [facility] [id number] [address] [place] [id number] May, [place] [address] [address] [facility] [id number] [address] [place] [id number] Apr, Vitamin B12 deficiency E53.8 [place] [address] [facility] [id number] [address] [place] [id number] Apr, [place] [address] [facility] [id number] [address] [place] [address] Mar, Chronic tension-type headach e, intractable G44.221 and Major depressive disorder, recurrent episode, moderate F33.1 [place] [address] [facility] [id number] [address] [place] [id number] Mar, Vitamin B12 deficiency E53.8 [place] [address] [facility] [id number] [address] [place] [phone] February, [place] [address] [facility] [id number] [address] [place] [phone] February, Vitamin B12 deficiency E53.8 [facility] [address] [facility] [id number] [address] [place] [id number] February, [place] [address] [address] [facility] [id number] [address] [place] [address] Jan, Dysuria R30.0 [facility] [address] [facility] [id number] [address] [place] [id number] 22 Jan, 2016 Type 2 diabetes mellitus wit hout complication E11.9 and Essential hypertension I10 [facility] [address] [facility] [id number] [address] [place] [id number] 15 Jan, 2016 Chronic diarrhea K52.9 [facility] [address] [facility] [id number] [address] [place] [id number] 13 Jan, 2016 [facility] [address] [id number] [address] [place] [id number] 12 Jan, 2016 Chronic diarrhea K52.9 [facility] [address] [facility] [id number] [address] [place] [id number] 12 Jan, 2016 [facility] [address] [facility] [id number] [address] [place] [id number] 12 Jan, 2016 Dysuria R30.0 [facility] [address] [facility] [id number] [address] [place] [id number] 07 Jan, 2016 Vitamin B12 deficiency E53.8 [facility] [address] [facility] [id number] [address] [place] [phone] 07 Jan, 2016 Dysuria R30.0 and Iron defic iency anemia due to chronic blood loss D50.0 [facility] [address] [facility] [id number] [address] [place] [id number] 05 Jan, 2016 Dysuria R30.0 [facility] [address] [facility] [id number] [address] [place] [id number] 04 Jan, 2016 [facility] [address] [facility] [id number] [address] [place] [phone] 15 Dec, 2015 [facility] [address] [facility] [id number] [address] [place] [id number] 11 Dec, 2015 Iron deficiency anemia due t o chronic blood loss D50.0 [facility] [address] [facility] [id number] [address] [place] [phone] Dec, Dysuria R30.0 ; Fatigue R53. 83 ; Hyperlipidemia E78.5 and Diarrhea R19.7 [facility] [id number] [place] [id number] 09 Dec, 2015 [facility] [address] [facility] [id number] [address] [place] [phone] Dec, [facility] [address] [phone] Nov, Vitamin B12 deficiency E53.8 [facility] [address] [facility] [id number] [address] [place] [phone] Oct, Vitamin B12 deficiency E53.8 [facility] [address] [place] [id number] [place] [phone] Oct, [facility] [address] [facility] [id number] [address] [place] [id number] Oct, Headache R51 [facility] [address] [place] [id number] [place] [id number] 07 Oct, 2015 Essential hypertension I10 ; Type 2 diabetes mellitus without complication E11.9 ; Vitamin B12 deficiency E53.8 ; Acquired hypothyroidism E03.9 ; Iron deficiency anemia due to chronic blood loss D50.0 and Hyperlipidemia E78.5 [facility] [address] [place] [id number] [place] [id number] 17 Sep, 2015 Essential hypertension I10 ; Vitamin B12 deficiency E53.8 ; Iron deficiency anemia due to chronic blood loss D50.0 ; Type 2 diabetes mellitus without complication E11.9 ; Hyperlipidemia E78.5 and Acquired hypothyroidism E03.9 [facility] [address] [facility] [id number] [address] [place] [phone] Sep, [facility] [address] [place] [id number] [place] [phone] Sep, [facility] [address] [place] [id number] [address] [place] [phone] Jul, [facility] [address] [id number] [address] [place] [id number] Jun, [facility] [address] [facility] [id number] [address] [place] [id number] Jun, [facility] [address] [facility] [id number] [address] [place] [id number] Jun, Hyperlipidemia 272.4 ; Iron deficiency anemia 280.9 ; Hypothyroidism 244.9 ; Diabetes mellitus without mention of complication, type II or unspecified type, not stated as uncontrolled 250.00 and Hypertension 401.9 [facility] [address] [facility] [id number] [address] [place] [phone] Jun, [facility] [address] [facility] [id number] [address] [place] [id number] Jun, [facility] [address] [facility] [id number] [address] [place] [id number] May, Hyperlipidemia 272.4 [facility] [address] [facility] [id number] [address] [place] [phone] May, [facility] [address] [facility] [id number] [address] [place] [phone] May, [facility] [address] [facility] [id number] [address] [place] [id number] Apr, Diabetes mellitus without me ntion of complication, type II or unspecified type, not stated as uncontrolled 250.00 ; Hypothyroidism 244.9 ; Hyperlipidemia 272.4 ; Pain in joint, lower leg 719.46 and RUQ pain 789.01 [facility] [address] [facility] [id number] [address] [place] [address] Mar, Sinusitis 473.9 [facility] [address] [facility] [id number] [address] [place] [phone] Mar, [facility] [address] [facility] [id number] [address] [place] [phone] Mar, [facility] [address] [id number] [address] [place] [phone] Mar, Hematochezia 578.1 [facility] [address] [id number] [address] [place] [id number] February, Sinusitis 473.9 [facility] [address] [id number] [address] [place] [id number] February, [facility] [address] [id number] [address] [place] [address], [place] [address] Jan, [facility] [address] [id number] [address] [place] [address], [place] [address] Jan, [facility] [address] [id number] [address] [place] [address], [place] [address] 24 Dec, 2014 [facility] [address] [id number] [address] [place] [address], [place] [address] Dec, [facility] [address] [id number] [address] [place] [phone] 24 Dec, 2014 [facility] [address] [id number] [address] [place] [address], [place] [address] Dec, [facility] [address] [id number] [address] [place] [id number] 24 Dec, 2014 [facility] [address] [id number] [address] [place] [phone] Dec, [facility] [address] [id number] [address] [place] [id number] Dec, [facility] [address] [id number] [address] [place] [phone] Dec, [facility] [address] [id number] [address] [place] [phone] Dec, [facility] [address] [id number] [address] [place] [id number] Dec, [facility] [address] [id number] [address] [place] [id number] Dec, [facility] [address] [id number] [address] [place] [address], [place] [id number] Nov, [facility] [address] [id number] [address] [place] [address], [place] [id number] Nov, [facility] [address] [id number] [address] [place] [address], [place] [id number] Nov, [facility] [address] [id number] [address] [place] [address], [place] [id number] Nov, [facility] [address] [id number] [address] [place] [address], [place] [id number] Oct, [facility] [address] [id number] [address] [place] [address], [place] [id number] Oct, [facility] [address] [id number] [address] [place] [address], [place] [address] Oct, [facility] [address] [id number] [address] [place] [address], [place] [address] Oct, [facility] [address] [id number] [address] [place] [address], [place] [address] Oct, [facility] [address] [id number] [address] [place] [address], [place] [address] Oct, [facility] [address] [id number] [address] [place] [address], [place] [address] Sep, [facility] [address] [id number] [address] [place] [address], [place] [address] Sep, [facility] [address] [id number] [address] [place] [address], [place] [address] Sep, [facility] [address] [id number] [address] [place] [address], [place] [address] Sep, [facility] [address] [id number] [address] [place] [address], [place] [address] Sep, [facility] [address] [id number] [address] [place] [address], [place] [address] Sep, [facility] [address] [id number] [address] [place] [address], [place] [address] Sep, [facility] [address] [id number] [address] [place] [address], [place] [address] Aug, [facility] [address] [id number] [address] [place] [address], [place] [address] Aug, [facility] [address] [id number] [address] [place] [address], [place] [address] Aug, [facility] [address] [id number] [address] [place] [address], [place] [address] Aug, [facility] [address] [id number] [address] [place] [address], [place] [address] Aug, [facility] [address] [id number] [address] [place] [address], [place] [address] Aug, [facility] [address] [id number] [address] [place] [address], [place] [address] Aug, [facility] [address] [id number] [address] [place] [address], [place] [address] Aug, [facility] [address] [id number] [address] [place] [address], [place] [address] Aug, [facility] [address] [id number] [address] [place] [address], [place] [address] Aug, [facility] [address] [id number] [address] [place] [address], [place] [address] Aug, [facility] [address] [id number] [address] [place] [address], [place] [address] Aug, [facility] [address] [id number] [address] [place] [address], [place] [address] Aug, [facility] [address] [id number] [address] [place] [address], [place] [address] Aug, [facility] [address] [id number] [address] [place] [address], [place] [address] Jul, [facility] [address] [id number] [address] [place] [address], [place] [address] Jul, [facility] [address] [id number] [address] [place] [address], [place] [address] Jul, [facility] [address] [id number] [address] [place] [address], [place] [address] Jul, [facility] [address] [id number] [address] [place] [address], [place] [address] 24 Jun, 2014 [facility] [address] [id number] [address] [place] [address], [place] [address] 24 Jun, 2014 [facility] [address] [id number] [address] [place] [address], [place] [address] 23 Jun, 2013 [facility] [address] [id number] [address] [place] [address], [place] [address] 23 Jun, 2013 [facility] [address] [id number] [address] [place] [address], [place] [address] 19 Jun, 2013 [facility] [address] [id number] [address] [place] [address], [place] [address] 19 Jun, 2013 [facility] [address] [id number] [address] [place] [address], [place] [address] 11 Jun, 2013 [facility] [address] [id number] [address] [place] [address], [place] [address] 11 Jun, 2013 [facility] [address] [id number] [address] [place] [address], [place] [address] 11 Jun, 2013 [facility] [address] [id number] [address] [place] [address], [place] [address] 11 Jun, 2013 [facility] [address] [id number] [address] [place] [address], [place] [address] 10 Jun, 2013 [facility] [address] [id number] [address] [place] [address], [place] [address] Jun, [facility] [address] [id number] [facility] [place] [address] Jun, [facility] [address] [id number] [address] [place] [address], [place] [address] Jun, [facility] [address] [id number] [address] [place] [address], [place] [address] May, [facility] [address] [id number] [address] [place] [address], [place] [address] May, [facility] [address] [id number] [address] [place] [address], [place] [address] May, [facility] [address] [id number] [address] [place] [address], [place] [address] May, [facility] [address] [id number] [address] [place] [address], [place] [address] May, [facility] [address] [id number] [address] [place] [address], [place] [address] May, [facility] [address] [id number] [address] [place] [address], [place] [address] Apr, [facility] [address] [id number] [address] [place] [address], [place] [address] Apr, [facility] [address] [id number] [address] [place] [address], [place] [address] Apr, [facility] [address] [id number] [address] [place] [address], [place] [address] Apr, [facility] [address] [id number] [address] [place] [address], [place] [address] Apr, [facility] [address] [id number] [address] [place] [address], [place] [address] Apr, [facility] [address] [id number] [address] [place] [address], [place] [address] Apr, [facility] [address] [id number] [facility] [place] [address] Apr, [facility] [address] [id number] [facility] [place] [address] Apr, [facility] [address] [id number] [facility] [place] [address] Apr, [facility] [address] [id number] [address] [place] [address], [place] [address] Apr, [facility] [address] [id number] [address] [place] [address], [place] [address] Mar, [facility] [address] [id number] [address] [place] [address], [place] [address] Mar, [facility] [address] [id number] [address] [place] [address], [place] [address] Mar, [facility] [address] [id number] [address] [place] [address], [place] [address] Mar, [facility] [address] [id number] [address] [place] [address], [place] [address] February, [facility] [address] [id number] [address] [place] [address], [place] [address] February, [facility] [address] [id number] [address] [place] [address], [place] [address] Jan, [facility] [address] [id number] [address] [place] [address], [place] [address] Jan, [facility] [place] [id number] Jan, [facility] [address] [id number] [address] [place] [address], [place] [address] Jan, [facility] [address] [id number] [address] [place] [address], [place] [address] Jan, [facility] [address] [id number] [address] [place] [address], [place] [address] Jan, [facility] [address] [id number] [address] [place] [address], [place] [address] Jan, [facility] [address] [id number] [address] [place] [address], [place] [address] Jan, [facility] [address] [id number] [address] [place] [address], [place] [address] Jan, [facility] [address] [id number] [address] [place] [address], [place] [address] Jan, [facility] [address] [id number] [address] [place] [address], [place] [address] Jan, [facility] [address] [id number] [address] [place] [address], [place] [address] Jan, [facility] [address] [id number] [address] [place] [address], [place] [address] Jan, [facility] [address] [id number] [address] [place] [address], [place] [address] Jan, [facility] [address] [id number] [address] [place] [address], [place] [address] Jan, [facility] [address] [id number] [address] [place] [address], [place] [address] Jan, [facility] [address] [id number] [address] [place] [address], [place] [address] Jan, [facility] [address] [id number] [address] [place] [address], [place] [address] Dec, [facility] [address] [id number] [address] [place] [address], [place] [address] Dec, [facility] [address] [id number] [address] [place] [address], [place] [address] Dec, [facility] [address] [id number] [address] [place] [address], [place] [address] Dec, [facility] [address] [id number] [address] [place] [address], [place] [address] Dec, [facility] [address] [id number] [address] [place] [address], [place] [address] Dec, [facility] [address] [id number] [address] [place] [address], [place] [address] Dec, [facility] [address] [id number] [address] [place] [address], [place] [address] Nov, [facility] [address] [id number] [address] [place] [address], [place] [address] Nov, [facility] [address] [id number] [address] [place] [address], [place] [address] Nov, [facility] [address] [id number] [address] [place] [address], [place] [address] Nov, [facility] [address] [id number] [address] [place] [address], [place] [address] Nov, [facility] [address] [id number] [address] [place] [address], [place] [address] Nov, [facility] [address] [id number] [address] [place] [address], [place] [address] Nov, [facility] [address] [id number] [address] [place] [address], [place] [address] Oct, [facility] [address] [id number] [address] [place] [address], [place] [address] Oct, [facility] [address] [id number] [address] [place] [address], [place] [address] Sep, [facility] [address] [id number] [address] [place] [address], [place] [address] Sep, [facility] [address] [id number] [address] [place] [address], [place] [address] Sep, [facility] [address] [id number] [address] [place] [address], [place] [address] Sep, [facility] [address] [id number] [address] [place] [address] Sep, [facility] [address] [id number] [address] [place] [address] Sep, [facility] [address] [id number] [address] [place] [address] Sep, [facility] [address] [id number] [address] [place] [address] Sep, [facility] [address] [id number] [address] [place] [address] Sep, [facility] [address] [id number] [address] [place] [address] Sep, [facility] [address] [id number] [address] [place] [address] Aug, [facility] [address] [id number] [address] [place] [address] Aug, [facility] [address] [id number] [address] [place] [address] Aug, [facility] [address] [id number] [address] [place] [address] Aug, [facility] [address] [id number] [address] [place] [address] Aug, [facility] [address] [id number] [address] [place] [address] Jul, [facility] [address] [id number] [address] [place] [address] Jul, [facility] [address] [id number] [address] [place] [address] Jul, [facility] [address] [id number] [address] [place] [phone] Jul, IMMUNIZATIONS No Known Immunizations SOCIAL HISTORY Never Assessed REASON FOR VISIT Diabetes--tjanssenMA, --sugars have been fasting at 180 since taking renee. , --c/o headache, sinus pain x2-3 weeks PLAN OF CARE Activity Details Follow Up 3 Months Reason:DMII VITAL SIGNS Height 62 in 2018-01-10 Weight 309.1 lbs 2018-01-10 Temperature 98.2 degrees Fahrenheit 2018-01-10 Heart Rate 82 bpm 2018-01-10 Respiratory Rate 20 2018-01-10 BMI 56.53 kg/m2 2018-01-10 Blood pressure systolic 124 mmHg 2018-01-10 Blood pressure diastolic 88 mmHg 2018-01-10 MEDICATIONS Medication Instructions Dosage Frequency Start Date End Date Duration S tatus Zetia 10 MG TAKE ONE TABLET BY MOUTH ONCE DAILY Active Cyanocobalamin 1000 MCG/ML Injection one time monthly inject 1 ml 90 days Active CrossCurrent Syringe 23G X 1 as directed Dec, Active Januvia 100 MG TAKE ONE TABLET BY MOUTH ONCE DAILY Active Ferrous Sulfate 325 (65 Fe) MG Orally Once a day 1 tablet 24h Dec Active Vitamin C 500 MG Active Humira 40 MG/0.8ML Subcutaneous every 2 weeks 0.8 ml Active Levothyroxine Sodium 100 MCG Orally Once a day 1 tablet on an empty stomach in the morning 24h Active Lisinopril 40 MG TAKE ONE TABLET BY MOUTH ONCE DAILY Active Vitamin D (Ergocalciferol) 93833 UNIT Orally once weekly 1 capsule Active MetFORMIN HCl ER 500 MG TAKE TWO TABLETS BY MOUTH TWICE DAILY Active Melatonin 5 MG Orally Once a day 1 tablet at bedtime as needed with f ood 24h Active Zoloft 100 mg Orally Once a day 2 tablets 24h Active RESULTS Name Result Date Reference Range A1C (IN HOUSE) 2018-01-10 A1C IN HOUSE 5.8 4.3 - 5.6 % Previous A1c 5.6 Lot [id number] Exp date 08/2019 MICROALBUMIN, URINE (IN HOUSE) 2018-01-10 MICROALBUMIN Normal Lot # [id number] Exp date 09/2018 Clarity Clear Color Yellow ALB 30 CRE 200 A:C (IN HOUSE) <30 Control + Control Lot # Exp date PROCEDURES Procedure Date Ordered Result Body Site GLYCATED HEMOGLOBIN TEST January 10, 2018 MICROALBUMIN, SEMIQUANT January 10, 2018 [facility] VISIT ESTABLISHED PATIENT January 10, 2018 INSTRUCTIONS MEDICATIONS ADMINISTERED No Known Medications [...]
--- OUTSIDE RECORDS SUMMARY | 2020-03-16 12:07 | XMS REPORT ---
Author Author Swathi PRESTON Organization [facility] Address [address] [place] [address] Care Team Providers Care Yarding Engineer Name Role Phone LUCRECIA PRESTON Unavailable PROBLEMS Type Condition ICD9-CM Code NDY25-UL Code Onset Dates Condition S tatus SNOMED Code Problem Anxiety F41.9 Active 43979514 Problem Chronic tension-type headache, intractable G44.221 Active 478856494 Problem Right upper quadrant pain R10.11 Acti ve 31134693 Problem Vitamin D deficiency E55.9 Active 88639360 Problem Sensorineural hearing loss of right ear H90.41 Active 26210788 Problem BMI 50.0-59.9, adult Z68.43 Active 449407531 Problem Fatty liver K76.0 Active 62324634 7 Problem Frequent falls R29.6 Active 11655 2002 Problem Crohn's disease of both small and large intestin e with complication K50.819 Active 99150541 Problem Type 2 diabetes mellitus with other specified complication E11.69 Active 946834638849 Problem Hyperlipidemia, unspecified E78.5 Ac tive 95425010 Problem MACHUCA (nonalcoholic steatohepatitis) K75.81 Active 626396305 Problem Iron deficiency anemia due to chronic blood loss D 50.0 Active 24501662 Problem Periodic limb movement sleep disorder G47.61 Active 613589024 Problem Obstructive sleep apnea on CPAP G47.33 Active 13480642 Problem Essential hypertension I10 Active 08819520 Problem Hyperlipidemia E78.5 Active 42091 004 Problem Chronic diarrhea K52.9 Active 236 318150 Problem Acquired hypothyroidism E03.9 Active 114956358 Problem Vitamin B12 deficiency E53.8 Active 454680138 Problem Major depressive disorder, recurrent episode, moderate F33.1 Active 698059950 ALLERGIES Substance Reaction Event Type Date Status [...] Jun, Active Sulfamethoxazole-Trimethoprim Unknown Drug Allergy Jun, 7 Active Tetanus&diphtheria Toxoid Unknown Non Drug Allergy Jun, 7 Active Influenza Virus Vacc,specific Got flu and was told to never get the vaccine again Non Drug Allergy Jun, Active ENCOUNTERS Encounter Location Date Diagnosis [facility] [address] [address] May, [facility] [address] [address] Apr, [facility] [address] [address] Mar, [facility] [address] [address] Mar, BMI 50.0-59.9, adult Z68.43 ; Flank pain R10.9 and Weight loss counseling, encounter for Z71.3 [facility] [address] [address] February, [facility] [address] [address] Jan, [facility] [address] [address] Jan, [facility] [address] [place] [id number] [place] [address] Jan, Diarrhea due to staphylococc us A04.8 and Diarrhea, unspecified type R19.7 [facility] [address] [place] [id number] [address] [place] [address] Jan, Acquired hypothyroidism E03. 9 ; Type 2 diabetes mellitus with other specified complication E11.69 ; Hyperlipidemia E78.5 ; Essential hypertension I10 ; Major depressive disorder, recurrent episode, moderate F33.1 and Vitamin D deficiency E55.9 [place] [address] [place] [id number] [address] [place] [address] 03 Jan, 2018 Type 2 diabetes mellitus wit h other specified complication E11.69 ; Hyperlipidemia E78.5 ; Essential hypertension I10 ; Acquired hypothyroidism E03.9 ; Major depressive disorder, recurrent episode, moderate F33.1 ; Vitamin D deficiency E55.9 ; Sinus congestion R09.81 and BMI 50.0-59.9, adult Z68.43 [place] [address] [address] 05 Dec, 2017 [place] [address] [address] 21 Sep, 2017 Encounter for immunization Z 23 [place] [address] [address] 05 Sep, 2017 [place] [address] [address] Sep, Vitamin B12 deficiency E53.8 [place] [address] [place] [id number] [place] [address] 24 Aug, [address] [address] 20 Aug, 2017 BMI 60.0-69.9, adult Z68.44 and Acute non-recurrent maxillary sinusitis J01.00 [place] [address] [address] 14 Aug, 2017 [place] [address] [place] [id number] [place] [address] 02 Aug, 2017 Medicare annual wellness vis it, initial Z00.00 ; Screening for breast cancer Z12.31 ; Acquired hypothyroidism E03.9 and BMI 40.0-44.9, adult Z68.41 [place] [address] [place] [id number] [place] [address] 27 Jul, 2017 Actinic keratosis L57.0 [place] [address] [address] Jul, Actinic keratosis L57.0 [place] [address] [place] [address] Jul, Type 2 diabetes mellitus wit h other specified complication E11.69 ; Actinic keratosis L57.0 and Hypothyroidism, unspecified E03.9 [place] [address] [place] [address] Jul, [place] [address] [place] [id number] [place] [address] Jul, [place] [address] [address] Jul, Vitamin B12 deficiency E53.8 [place] [address] [address] Jun, Acquired hypothyroidism E03. 9 and Chronic tension-type headache, intractable G44.221 [place] [address] [address] Jun, Back muscle spasm M62.830 an d BMI 50.0-59.9, adult Z68.43 [place] [address] [place] [address] Jun, Vitamin B12 deficiency E53.8 [place] [address] [place] [address] Jun, Crohn's disease of both smal l and large intestine with complication K50.819 [place] [address] [place] [address] Jun, Crohn's disease of both smal l and large intestine with complication K50.819 [place] [address] [place] [id number] [place] [address] May, Hyperlipidemia E78.5 ; Anxie ty F41.9 and Essential hypertension I10 [place] [address] [place] [address] May, [place] [address] [id number] [address] [place] [address] May, Encounter for immunization Z 23 and Vitamin B12 deficiency E53.8 [place] [address] [facility] [id number] [address] [place] [address] May, [place] [address] [facility] [id number] [address] [place] [address] Apr, [place] [address] [facility] [id number] [address] [place] [address] Apr, [place] [address] [facility] [id number] [address] [place] [address] Apr, Crohn's disease of both smal l and large intestine with complication K50.819 [place] [address] [place] [id number] [place] [address] Apr, Vitamin B12 deficiency E53.8 [place] [address] [facility] [id number] [address] [place] [address] Apr, Crohn's disease of both smal l and large intestine with complication K50.819 and Acute pain of right shoulder M25.511 [place] [address] [place] [id number] [place] [address] Mar, Type 2 diabetes mellitus wit hout complication E11.9 ; Frequent falls R29.6 and Other chest pain R07.89 [place] [address] [facility] [id number] [address] [place] [address] Mar, [place] [address] [facility] [id number] [address] [place] [address] Mar, [place] [address] [place] [id number] [place] [address] Mar, Type 2 diabetes mellitus wit hout complication E11.9 and Blurry vision, bilateral H53.8 [place] [address] [facility] [id number] [address] [place] [address] Mar, Vitamin B12 deficiency E53.8 [facility] [address] [facility] [id number] [address] [place] [address] Mar, Crohn's disease of both smal l and large intestine with complication K50.819 [facility] [address] [facility] [id number] [address] [place] [address] February, Vitamin B12 deficiency E53.8 [facility] [address] [facility] [id number] [address] [place] [address] Jan, Crohn's disease of both smal l and large intestine with complication K50.819 [facility] [address] [facility] [id number] [address] [place] [address] Jan, Crohn's disease of both smal l and large intestine with complication K50.819 [facility] [address] [facility] [id number] [address] [place] [address] Jan, Dark brown-colored urine R82 .99 and Acute suppurative otitis media of right ear without spontaneous rupture of tympanic membrane, recurrence not specified H66.001 [place] [address] [facility] [id number] [address] [place] [address] Jan, Encounter for immunization Z 23 [place] [address] [facility] [id number] [address] [place] [address] Dec, Crohn's disease of both smal l and large intestine with complication K50.819 and Eustachian tube dysfunction, right H69.81 [facility] [address] [facility] [id number] [address] [place] [address] Dec, [facility] [address] [place] [id number] [place] [address] Dec, Contusion of right knee, ini tial encounter S80.01XA [facility] [address] [facility] [id number] [address] [place] [address] Dec, [place] [address] [place] [id number] [address] [place] [address] 13 Dec, 2016 Acute pain of right knee M25 .561 [place] [address] [address] Dec, Iron deficiency anemia due t o chronic blood loss D50.0 [place] [address] [address] Dec, Hyperlipidemia E78.5 ; Type 2 diabetes mellitus without complication E11.9 ; Vitamin B12 deficiency E53.8 ; Essential hypertension I10 ; Obstructive sleep apnea on CPAP G47.33 and Periodic limb movement sleep disorder G47.61 [place] [address] [address] 22 Nov, 2016 Type 2 diabetes mellitus wit hout complication E11.9 ; Vitamin B12 deficiency E53.8 ; Hyperlipidemia E78.5 ; Essential hypertension I10 ; Obstructive sleep apnea on CPAP G47.33 ; Periodic limb movement sleep disorder G47.61 ; Anxiety F41.9 ; Acquired hypothyroidism E03.9 and Chronic tension-type headache, intractable G44.221 [place] [address] [address] 10 Nov, 2016 Crohn's disease of both smal l and large intestine with complication K50.819 [place] [address] [place] [id number] [place] [address] Nov, Vitamin B12 deficiency E53.8 [place] [address] [place] [address] Oct, [place] [address] [place] [address] Oct, Vitamin B12 deficiency E53.8 [place] [address] [place] [id number] [place] [address] Sep, [place] [address] [place] [id number] [place] [address] Sep, Vitamin B12 deficiency E53.8 [facility] [address] [id number] [address] [place] [address] Aug, [facility] [address] [facility] [id number] [address] [place] [address] Aug, Vitamin B12 deficiency E53.8 [facility] [address] [facility] [id number] [address] [place] [address] Aug, [facility] [address] [facility] [id number] [address] [place] [address] Jul, Elevated ALT measurement R74 .0 [facility] [address] [id number] [address] [place] [address] Jul, Hematuria R31.9 ; Acute righ t-sided thoracic back pain M54.6 ; Major depressive disorder, recurrent episode, moderate F33.1 and Elevated ALT measurement R74.0 [facility] [address] [facility] [id number] [address] [place] [address] Jul, [facility] [address] [facility] [id number] [address] [place] [address] Jul, Elevated ALT measurement R74 .0 [facility] [address] [facility] [id number] [address] [place] [address] Jul, Iron deficiency anemia due t o chronic blood loss D50.0 [facility] [address] [facility] [id number] [address] [place] [address] Jul, Type 2 diabetes mellitus wit hout complication E11.9 ; Acquired hypothyroidism E03.9 ; Iron deficiency anemia due to chronic blood loss D50.0 ; Hyperlipidemia E78.5 and Essential hypertension I10 [facility] [address] [facility] [id number] [address] [place] [address] Jun, [facility] [address] [facility] [id number] [address] [place] [address] Jun, Vitamin B12 deficiency E53.8 [facility] [address] [facility] [id number] [address] [place] [address] Jun, Type 2 diabetes mellitus wit hout complication E11.9 ; Acquired hypothyroidism E03.9 ; Iron deficiency anemia due to chronic blood loss D50.0 ; Hyperlipidemia E78.5 ; Essential hypertension I10 ; Chronic tension-type headache, intractable G44.221 ; Pulsatile tinnitus, bilateral H93.13 ; Obstructive sleep apnea on CPAP G47.33 and Major depressive disorder, recurrent episode, moderate F33.1 [place] [address] [place] [id number] [place] [address] May, Vitamin B12 deficiency E53.8 [place] [address] [place] [id number] [place] [address] May, [place] [address] [place] [id number] [place] [address] Apr, Vitamin B12 deficiency E53.8 [place] [address] [place] [id number] [place] [address] Apr, [place] [address] [place] [id number] [place] [address] Mar, Chronic tension-type headach e, intractable G44.221 and Major depressive disorder, recurrent episode, moderate F33.1 [place] [address] [place] [id number] [place] [address] Mar, Vitamin B12 deficiency E53.8 [place] [address] [facility] [id number] [address] [place] [address] February, [place] [address] [place] [id number] [place] [address] February, Vitamin B12 deficiency E53.8 [place] [address] [facility] [id number] [address] [place] [address] February, [place] [address] [place] [id number] [place] [address] Jan, Dysuria R30.0 [place] [address] [place] [id number] [place] [address] 22 Jan, 2016 Essential hypertension I10 a nd Type 2 diabetes mellitus without complication E11.9 [facility] [address] [facility] [id number] [address] [place] [address] 15 Jan, [address] [facility] [address] [facility] [id number] [address] [place] [address] 13 Jan, 2016 [facility] [address] [facility] [id number] [address] [place] [address] Jan, Chronic diarrhea K52.9 [facility] [address] [facility] [id number] [address] [place] [address] Jan, [facility] [address] [place] [id number] [address] [place] [address] 12 Jan, 2016 Dysuria R30.0 [place] [address] [place] [id number] [place] [address] 07 Jan, 2016 Vitamin B12 deficiency E53.8 [place] [address] [place] [id number] [place] [address] 07 Jan, 2016 Dysuria R30.0 and Iron defic iency anemia due to chronic blood loss D50.0 [place] [address] [place] [id number] [place] [address] 05 Jan, 2016 Dysuria R30.0 [place] [address] [place] [address] 04 Jan, 2016 [place] [address] [place] [id number] [place] [address] 15 Dec, 2015 [place] [address] [place] [id number] [place] [address] 11 Dec, 2015 Iron deficiency anemia due t o chronic blood loss D50.0 [place] [address] [place] [id number] [place] [address] 10 Dec, 2015 Dysuria R30.0 ; Fatigue R53. 83 ; Hyperlipidemia E78.5 and Diarrhea R19.7 [place] [address] [facility] [id number] [address] [place] [address] [address], 2015 [facility] [address] [facility] [id number] [address] [place] [address] Dec, [facility] [address] [facility] [id number] [address] [place] [address] 10 Nov, 2015 [address]8 [facility] [address] [facility] [id number] [address] [place] [address] Oct, Vitamin B12 deficiency E53.8 [facility] [address] [facility] [id number] [address] [place] [address] Oct, [facility] [address] [facility] [id number] [address] [place] [address] 09 Oct, [address] [facility] [address] [facility] [id number] [address] [place] [address] Oct, Essential hypertension I10 ; Type 2 diabetes mellitus without complication E11.9 ; Vitamin B12 deficiency E53.8 ; Acquired hypothyroidism E03.9 ; Iron deficiency anemia due to chronic blood loss D50.[address] [facility] [address] [facility] [id number] [address] [place] [address] Sep, Essential hypertension I10 ; Vitamin B12 deficiency E53.8 ; Iron deficiency anemia due to chronic blood loss D50.0 ; Type 2 diabetes mellitus without complication E11.9 ; Hyperlipidemia E78.5 and Acquired hypothyroidism E03.9 [facility] [address] [facility] [id number] [address] [place] [address] Sep, [facility] [address] [facility] [id number] [address] [place] [address] Sep, [facility] [address] [facility] [id number] [address] [place] [address] Jul, [facility] [address] [facility] [id number] [address] [place] [address] Jun, [facility] [address] [place] [id number] [address] [place] [address] Jun, [facility] [address] [address] Jun, Hyperlipidemia 272.4 ; Iron deficiency anemia 280.9 ; Hypothyroidism 244.9 ; Diabetes mellitus without mention of complication, type II or unspecified type, not stated as uncontrolled 250.[address] [facility] [address] [address] Jun, [facility] [address] [place] [id number] [address] [place] [address] Jun, [facility] [address] [address] May, Hyperlipidemia 272.4 [facility] [address] [address] May, [facility] [address] [place] [id number] [address] [place] [address] May, [facility] [address] [place] [id number] [place] [address] Apr, Diabetes mellitus without me ntion of complication, type II or unspecified type, not stated as uncontrolled 250.00 ; Hypothyroidism 244.9 ; Hyperlipidemia 272.4 ; Pain in joint, lower leg 719.46 and RUQ pain 789.01 [facility] [address] [place] [address] Mar, Sinusitis 473.9 [facility] [address] [place] [id number] [address] [place] [address] Mar, [facility] [address] [address] Mar, [facility] [address] [place] [id number] [address] [place] [address] Mar, Hematochezia 578.1 [facility] [address] [id number] [address] [place] [address], [place] [address] February, Sinusitis 473.9 [facility] [address] [id number] [address] [place] [address], [place] [address] February, [facility] [address] [id number] [address] [place] [address], [place] [address] 14 Jan, 2015 [facility] [address] [id number] [address] [place] [address], [place] [address] Jan, [facility] [address] [id number] [address] [place] [address], [place] [address] 24 Dec, 2014 [facility] [address] [id number] [address] [place] [address], [place] [address] 24 Dec, 2014 [facility] [address] [id number] [address] [place] [address], [place] [address] 24 Dec, 2014 [facility] [address] [id number] [address] [place] [address], [place] [address] 24 Dec, 2014 [facility] [address] [id number] [address] [place] [address], [place] [address] 24 Dec, 2014 [facility] [address] [id number] [address] [place] [address], [place] [address] 24 Dec, 2014 [facility] [address] [id number] [address] [place] [address], [place] [address] Dec, [facility] [address] [id number] [address] [place] [address], [place] [address] Dec, [facility] [address] [id number] [address] [place] [address], [place] [address] 13 Dec, 2014 [facility] [address] [id number] [address] [place] [address], [place] [address] 02 Dec, 2014 [facility] [address] [id number] [address] [place] [address], [place] [address] 02 Dec, 2014 [facility] [address] [id number] [address] [place] [address], [place] [address] Nov, [facility] [address] [id number] [address] [place] [address], [place] [address] Nov, [facility] [address] [id number] [address] [place] [address], [place] [address] Nov, [facility] [address] [id number] [address] [place] [address], [place] [address] Nov, [facility] [address] [id number] [address] [place] [address], [place] [address] Oct, [facility] [address] [id number] [address] [place] [address], [place] [address] Oct, [facility] [address] [id number] [address] [place] [address], [place] [address] Oct, [facility] [address] [id number] [address] [place] [address], [place] [address] Oct, [facility] [address] [id number] [address] [place] [address], [place] [address] Oct, [facility] [address] [id number] [address] [place] [address], [place] [address] Oct, [facility] [address] [id number] [address] [place] [address], [place] [address] Sep, [facility] [address] [id number] [address] [place] [address], [place] [address] Sep, [facility] [address] [id number] [address] [place] [id number] Sep, [facility] [address] [id number] [address] [place] [address], [place] [address] Sep, [facility] [address] [id number] [address] [place] [address], [place] [address] Sep, [facility] [address] [id number] [address] [place] [address], [place] [address] Sep, [facility] [address] [id number] [address] [place] [address], [place] [address] Sep, [facility] [address] [id number] [address] [place] [address], [place] [address] Aug, [facility] [address] [id number] [address] [place] [address], [place] [address] Aug, [facility] [facility] [address] [id number] [address] [place] [address], [place] [address] Aug, [facility] [address] [id number] [address] [place] [address], [place] [address] Aug, [facility] [address] [id number] [address] [place] [address], [place] [address] Aug, [facility] [address] [id number] [address] [place] [address], [place] [address] Aug, [facility] [address] [id number] [address] [place] [address], [place] [address] Aug, [facility] [address] [id number] [address] [place] [address], [place] [address] Aug, [facility] [address] [id number] [address] [place] [address], [place] [address] Aug, [facility] [address] [id number] [address] [place] [address], [place] [address] Aug, [facility] [address] [id number] [address] [place] [address], [place] [address] Aug, [facility] [address] [id number] [address] [place] [address], [place] [address] Aug, [facility] [address] [id number] [address] [place] [address], [place] [address] Aug, [facility] [address] [id number] [address] [place] [address], [place] [address] Aug, [facility] [address] [id number] [address] [place] [address], [place] [address] Jul, [facility] [address] [id number] [address] [place] [address], [place] [address] 07 Jul, 2013 [facility] [address] [id number] [address] [place] [address], [place] [address] Jul, [facility] [address] [id number] [address] [place] [address], [place] [address] Jul, [facility] [address] [id number] [address] [place] [address], [place] [address] 24 Jun, 2013 [facility] [address] [id number] [address] [place] [address], [place] [address] 24 Jun, 2013 [facility] [address] [id number] [address] [place] [address], [place] [address] 23 Jun, 2013 [facility] [address] [id number] [address] [place] [address], [place] [address] 23 Jun, 2013 [facility] [address] [id number] [address] [place] [address], [place] [address] 19 Jun, 2013 [facility] [address] [id number] [address] [place] [address], [place] [address] 19 Jun, 2013 [facility] [address] [id number] [address] [place] [address], [place] [address] 11 Jun, 2013 [facility] [address] [id number] [address] [place] [address], [place] [address] 11 Jun, 2013 [facility] [address] [id number] [address] [place] [address], [place] [address] 11 Jun, 2013 [facility] [address] [id number] [address] [place] [address], [place] [address] 11 Jun, 2013 [facility] [address] [id number] [address] [place] [address], [place] [address] 10 Jun, 2013 [facility] [address] [id number] [address] [place] [address], [place] [address] 10 Jun, 2013 [facility] [address] [id number] [address] [place] [address] [place] [address] Jun, [facility] [address] [id number] [facility] [place] [address] Jun, [facility] [address] [id number] [address] [place] [address], [place] [address] May, [facility] [address] [id number] [address] [place] [address], [place] [address] May, [facility] [address] [id number] [address] [place] [address], [place] [address] May, [facility] [address] [id number] [address] [place] [address], [place] [address] May, [facility] [address] [id number] [address] [place] [address], [place] [address] May, [facility] [address] [id number] [address] [place] [address], [place] [address] May, [facility] [address] [id number] [address] [place] [address], [place] [address] Apr, [facility] [address] [id number] [address] [place] [address], [place] [address] Apr, [facility] [address] [id number] [address] [place] [address], [place] [address] Apr, [facility] [address] [id number] [address] [place] [address], [place] [address] Apr, [facility] [address] [id number] [address] [place] [address], [place] [address] Apr, [facility] [address] [id number] [address] [place] [address], [place] [address] Apr, [facility] [address] [id number] [address] [place] [address], [place] [address] Apr, [facility] [address] [id number] [address] [place] [address], [place] [address] Apr, [facility] [address] [id number] [facility] [place] [address] Apr, [facility] [address] [id number] [facility] [place] [address] Apr, [facility] [address] [id number] [facility] [place] [address] Apr, [facility] [address] [id number] [address] [place] [address], [place] [address] Mar, [facility] [address] [id number] [address] [place] [address], [place] [address] Mar, [facility] [address] [id number] [address] [place] [address], [place] [address] Mar, [facility] [address] [id number] [address] [place] [address], [place] [address] Mar, [facility] [address] [id number] [address] [place] [address], [place] [address] February, [facility] [address] [id number] [address] [place] [address], [place] [address] February, [facility] [address] [id number] [address] [place] [address], [place] [address] Jan, [facility] [address] [id number] [address] [place] [address], [place] [address] Jan, [address] [id number] Jan, [facility] [address] [id number] [address] [place] [address], [place] [address] Jan, [facility] [address] [id number] [address] [place] [address], [place] [address] Jan, [facility] [address] [id number] [address] [place] [address], [place] [address] Jan, [facility] [address] [id number] [address] [place] [address], [place] [address] Jan, [facility] [address] [id number] [address] [place] [address], [place] [address] Jan, [facility] [address] [id number] [address] [place] [address], [place] [address] Jan, [facility] [address] [id number] [address] [place] [address], [place] [address] Jan, [facility] [address] [id number] [address] [place] [address], [place] [address] Jan, [facility] [address] [id number] [address] [place] [address], [place] [address] Jan, [facility] [address] [id number] [address] [place] [address], [place] [address] Jan, [facility] [address] [id number] [address] [place] [address], [place] [address] Jan, [facility] [address] [id number] [address] [place] [address], [place] [address] Jan, [facility] [address] [id number] [address] [place] [address], [place] [address] Jan, [facility] [address] [id number] [address] [place] [address], [place] [address] Jan, [facility] [address] [id number] [address] [place] [address], [place] [address] 18 Dec, 2013 [facility] [address] [id number] [address] [place] [address], [place] [address] 18 Dec, 2013 [facility] [address] [id number] [address] [place] [address], [place] [address] Dec, [facility] [address] [id number] [address] [place] [address], [place] [address] Dec, [facility] [address] [id number] [address] [place] [address], [place] [address] 05 Dec, 2013 [facility] [address] [id number] [address] [place] [address], [place] [address] Dec, [facility] [address] [id number] [address] [place] [address], [place] [address] Dec, [facility] [address] [id number] [address] [place] [address], [place] [address] Nov, [facility] [address] [id number] [address] [place] [address], [place] [address] Nov, [facility] [address] [id number] [address] [place] [address], [place] [address] Nov, [facility] [address] [id number] [address] [place] [address], [place] [address] Nov, [facility] [address] [id number] [address] [place] [address], [place] [address] Nov, [facility] [address] [id number] [address] [place] [address], [place] [address] Nov, [facility] [address] [id number] [address] [place] [address], [place] [address] Nov, [facility] [address] [id number] [address] [place] [address], [place] [address] Oct, [facility] [address] [id number] [address] [place] [address], [place] [address] Oct, [facility] [address] [id number] [address] [place] [address], [place] [address] Sep, [facility] [address] [id number] [address] [place] [address], [place] [address] Sep, [facility] [address] [id number] [address] [place] [address], [place] [address] Sep, [facility] [address] [id number] [address] [place] [address], [place] [address] Sep, [facility] [address] [id number] [address] [place] [address], [place] [address] Sep, [facility] [address] [id number] [address] [place] [address] Sep, [facility] [address] [id number] [address] [place] [address] Sep, [facility] [address] [id number] [address] [place] [address] Sep, [facility] [address] [id number] [address] [place] [address] Sep, [facility] [address] [id number] [address] [place] [address] Sep, [facility] [address] [id number] [address] [place] [address] Aug, [facility] [address] [id number] [address] [place] [address] Aug, [facility] [address] [id number] [address] [place] [address] Aug, [facility] [address] [id number] [address] [place] [address] Aug, [facility] [address] [id number] [address] [place] [address] Aug, [facility] [address] [id number] [address] [place] [address] Jul, [facility] [address] [id number] [address] [place] [address] Jul, [facility] [address] [id number] [address] [place] [address] Jul, [facility] [address] [id number] [address] [place] [address] Jul, IMMUNIZATIONS No Known Immunizations SOCIAL HISTORY Never Assessed REASON FOR VISIT Back Pain the last 6 months -- madeline white PLAN OF CARE Activity Details Follow Up 3 Months with PCP Gary f/u Pain/obesity Reason: VITAL SIGNS Height 62 in 2017-06-30 Weight 306.0 lbs 2017-06-30 Temperature 98.0 degrees Fahrenheit 2017-06-30 Heart Rate 70 bpm 2017-06-30 Respiratory Rate 18 2017-06-30 BMI 55.96 kg/m2 2017-06-30 Blood pressure systolic 130 mmHg 2017-06-30 Blood pressure diastolic 78 mmHg 2017-06-30 MEDICATIONS Medication Instructions Dosage Frequency Start Date End Date Duration S tatus Fiber - Active Ferrous Sulfate 325 (65 Fe) MG Orally Once a day 1 tablet 24h Dec Active Levothyroxine Sodium 100 MCG Orally Once a day 1 tablet on an empty stomach in the morning 24h 90 days Active Mercaptopurine 50 MG Act katlyn Lisinopril 40 mg Orally Once a day 1 tablet 24h 90 d ays Active Cyanocobalamin 1000 MCG/ML 1 Active Januvia 100 mg Orally Once a day 1 tablet 24h Mar, 9 0 days Active Zetia 10 mg Orally Once a day 1 tablet 24h 90 days A ctive Melatonin 3 MG Orally Once a day 1 tablet at bedtime as needed with f ood 24h Active MetFORMIN HCl ER 500 mg Orally 2 times a day 2 tablets 12h 24 Ju 2016 30 day(s) Active Vitamin C 500 MG Active Zoloft 100 mg Orally Once a day 2 tablets 24h 90 day s Active RESULTS No Results PROCEDURES Procedure Date Ordered Result Body Site [facility] VISIT ESTABLISHED PATIENT Jun 30, 2017 INSTRUCTIONS MEDICATIONS ADMINISTERED No Known Medications [...]
--- OUTSIDE RECORDS SUMMARY | 2020-03-16 12:08 | XMS REPORT ---
Author Author Swathi DORAN [facility] Address [address] [place] [address] Care Team Providers Care Office Admin Name Role Phone BRENTON DORAN Unavailable PROBLEMS Type Condition ICD9-CM Code PPS63-GF Code Onset Dates Condition S tatus SNOMED Code Problem Anxiety F41.9 Active 70266497 Problem Chronic tension-type headache, intractable G44.221 Active 593049174 Problem Right upper quadrant pain R10.11 Acti ve 46514025 Problem Vitamin D deficiency E55.9 Active 79891648 Problem Sensorineural hearing loss of right ear H90.41 Active 05097154 Problem BMI 50.0-59.9, adult Z68.43 Active 720406438 Problem Fatty liver K76.0 Active 01026932 7 Problem Frequent falls R29.6 Active 83420 2002 Problem Crohn's disease of both small and large intestin e with complication K50.819 Active 58386841 Problem Type 2 diabetes mellitus with other specified complication E11.69 Active 828197396945 Problem Hyperlipidemia, unspecified E78.5 Ac tive 27886807 Problem MACHUCA (nonalcoholic steatohepatitis) K75.81 Active 947362071 Problem Iron deficiency anemia due to chronic blood loss D 50.0 Active 35270521 Problem Periodic limb movement sleep disorder G47.61 Active 549431156 Problem Obstructive sleep apnea on CPAP G47.33 Active 45579635 Problem Essential hypertension I10 Active 50713331 Problem Hyperlipidemia E78.5 Active 53961 004 Problem Chronic diarrhea K52.9 Active 236 826303 Problem Acquired hypothyroidism E03.9 Active 691906931 Problem Vitamin B12 deficiency E53.8 Active 119833014 Problem Major depressive disorder, recurrent episode, moderate F33.1 Active 809589456 ALLERGIES No Information ENCOUNTERS Encounter Location Date Diagnosis [facility] [address] [facility] [id number] [address] [address] May, [facility] [address] [place] [id number] [address] [place] [address] Apr, [facility] [address] [address] Mar, [facility] [address] [address] Mar, BMI 50.0-59.9, adult Z68.43 ; Flank pain R10.9 and Weight loss counseling, encounter for Z71.3 [facility] [address] [place] [id number] [place] [address] February, [facility] [address] [address] Jan, [facility] [address] [address] Jan, [facility] [address] [place] [id number] [place] [address] Jan, Diarrhea due to staphylococc us A04.8 and Diarrhea, unspecified type R19.7 [place] [address] [address] Jan, Acquired hypothyroidism E03. 9 ; Type 2 diabetes mellitus with other specified complication E11.69 ; Hyperlipidemia E78.5 ; Essential hypertension I10 ; Major depressive disorder, recurrent episode, moderate F33.1 and Vitamin D deficiency E55.9 [facility] [address] [place] [id number] [address] [place] [address] Jan, Type 2 diabetes mellitus wit h other specified complication E11.69 ; Hyperlipidemia E78.5 ; Essential hypertension I10 ; Acquired hypothyroidism E03.9 ; Major depressive disorder, recurrent episode, moderate F33.1 ; Vitamin D deficiency E55.9 ; Sinus congestion R09.81 and BMI 50.0-59.9, adult Z68.43 [facility] [address] [place] [id number] [place] [address] Dec, [facility] [address] [facility] [id number] [address] [place] [address] Sep, Encounter for immunization Z 23 [facility] [address] [place] [id number] [place] [address] Sep, [facility] [address] [place] [id number] [address] [place] [address] Sep, Vitamin B12 deficiency E53.8 [place] [address] [place] [id number] [place] [address] Aug, [place] [address] [address] Aug, BMI 60.0-69.9, adult Z68.44 and Acute non-recurrent maxillary sinusitis J01.00 [place] [address] [address] Aug, [place] [address] [address] Aug, Medicare annual wellness vis it, initial Z00.00 ; Screening for breast cancer Z12.31 ; BMI 40.0-44.9, adult Z68.41 and Acquired hypothyroidism E03.9 [place] [address] [place] [id number] [address] [place] [address] Jul, Actinic keratosis L57.0 [place] [address] [place] [id number] [place] [address] Jul, Actinic keratosis L57.0 [place] [address] [place] [id number] [address] [place] [address] Jul, Type 2 diabetes mellitus wit h other specified complication E11.69 ; Actinic keratosis L57.0 and Hypothyroidism, unspecified E03.9 [place] [address] [place] [id number] [address] [place] [address] Jul, [place] [address] [place] [id number] [address] [place] [address] Jul, [facility] [address] [place] [address] Jul, Vitamin B12 deficiency E53.8 [place] [address] [facility] [id number] [address] [place] [address] Jun, Acquired hypothyroidism E03. 9 and Chronic tension-type headache, intractable G44.221 [place] [address] [place] [id number] [address] [place] [address] Jun, Back muscle spasm M62.830 an d BMI 50.0-59.9, adult Z68.43 [place] [address] [address] Jun, Vitamin B12 deficiency E53.8 [place] [address] [address] Jun, Crohn's disease of both smal l and large intestine with complication K50.819 [place] [address] [place] [id number] [place] [address] Jun, Crohn's disease of both smal l and large intestine with complication K50.819 [place] [address] [place] [id number] [place] [address] May, Hyperlipidemia E78.5 ; Anxie ty F41.9 and Essential hypertension I10 [place] [address] [place] [address] May, [place] [address] [place] [id number] [address] [place] [address] May, Encounter for immunization Z 23 and Vitamin B12 deficiency E53.8 [place] [address] [facility] [id number] [address] [place] [address] May, [place] [address] [place] [id number] [address] [place] [address] Apr, [place] [address] [place] [address] Apr, [place] [address] [facility] [id number] [address] [place] [address] Apr, Crohn's disease of both smal l and large intestine with complication K50.819 [place] [address] [place] [id number] [address] [place] [address] Apr, Vitamin B12 deficiency E53.8 [place] [address] [place] [id number] [address] [place] [address] Apr, Crohn's disease of both smal l and large intestine with complication K50.819 and Acute pain of right shoulder M25.511 [place] [address] [place] [id number] [address] [place] [address] Mar, Type 2 diabetes mellitus wit hout complication E11.9 ; Frequent falls R29.6 and Other chest pain R07.89 [place] [address] [place] [id number] [address] [place] [address] Mar, [place] [address] [place] [id number] [address] [place] [address] Mar, [place] [address] [place] [address] Mar, Type 2 diabetes mellitus wit hout complication E11.9 and Blurry vision, bilateral H53.8 [place] [address] [place] [id number] [address] [place] [address] Mar, Vitamin B12 deficiency E53.8 [place] [address] [facility] [id number] [address] [place] [address] Mar, Crohn's disease of both smal l and large intestine with complication K50.819 [place] [address] [place] [id number] [address] [place] [address] February, Vitamin B12 deficiency E53.8 [place] [address] [place] [id number] [address] [place] [address] Jan, Crohn's disease of both smal l and large intestine with complication K50.819 [facility] [address] [facility] [id number] [address] [place] [address] Jan, Crohn's disease of both smal l and large intestine with complication K50.819 [facility] [address] [facility] [id number] [address] [place] [address] Jan, Dark brown-colored urine R82 .99 and Acute suppurative otitis media of right ear without spontaneous rupture of tympanic membrane, recurrence not specified H66.001 [facility] [address] [facility] [id number] [address] [place] [address] Jan, Encounter for immunization Z 23 [place] [address] [facility] [id number] [address] [place] [address] Dec, Crohn's disease of both smal l and large intestine with complication K50.819 and Eustachian tube dysfunction, right H69.81 [facility] [address] [facility] [id number] [address] [place] [address] Dec, [place] [address] [facility] [id number] [address] [place] [address] Dec, Contusion of right knee, ini tial encounter S80.01XA [place] [address] [place] [id number] [address] [place] [address] Dec, [place] [address] [place] [id number] [address] [place] [address] Dec, Acute pain of right knee M25 .561 [place] [address] [facility] [id number] [address] [place] [address] Dec, Iron deficiency anemia due t o chronic blood loss D50.0 [place] [address] [place] [id number] [address] [place] [address] Dec, Hyperlipidemia E78.5 ; Type 2 diabetes mellitus without complication E11.9 ; Vitamin B12 deficiency E53.8 ; Essential hypertension I10 ; Obstructive sleep apnea on CPAP G47.33 and Periodic limb movement sleep disorder G47.61 [place] [address] [facility] [id number] [address] [place] [address] Nov, Type 2 diabetes mellitus wit hout complication E11.9 ; Vitamin B12 deficiency E53.8 ; Hyperlipidemia E78.5 ; Essential hypertension I10 ; Obstructive sleep apnea on CPAP G47.33 ; Periodic limb movement sleep disorder G47.61 ; Anxiety F41.9 ; Acquired hypothyroidism E03.9 and Chronic tension-type headache, intractable G44.221 [place] [address] [facility] [id number] [address] [place] [address] Nov, Crohn's disease of both smal l and large intestine with complication K50.819 [place] [address] [place] [id number] [address] [place] [address] Nov, Vitamin B12 deficiency E53.8 [place] [address] [place] [id number] [address] [place] [address] Oct, [place] [address] [place] [id number] [address] [place] [address] Oct, Vitamin B12 deficiency E53.8 [place] [address] [place] [id number] [address] [place] [address] Sep, [place] [address] [place] [id number] [address] [place] [address] Sep, Vitamin B12 deficiency E53.8 [place] [address] [place] [id number] [address] [place] [address] Aug, [place] [address] [facility] [id number] [address] [place] [address] 14 Aug, 2016 Vitamin B12 deficiency E53.8 [place] [address] [place] [id number] [address] [place] [address] Aug, [place] [address] [place] [id number] [address] [place] [address] 24 Jul, 2016 Elevated ALT measurement R74 .0 [facility] [address] [facility] [id number] [address] [place] [address] Jul, Hematuria R31.9 ; Acute righ t-sided thoracic back pain M54.6 ; Major depressive disorder, recurrent episode, moderate F33.1 and Elevated ALT measurement R74.0 [facility] [address] [facility] [id number] [address] [place] [address] Jul, [place] [address] [facility] [id number] [address] [place] [address] Jul, Elevated ALT measurement R74 .0 [place] [address] [facility] [id number] [place] [address] Jul, Iron deficiency anemia due t o chronic blood loss D50.0 [place] [address] [place] [id number] [address] [place] [address] Jul, Type 2 diabetes mellitus wit hout complication E11.9 ; Acquired hypothyroidism E03.9 ; Iron deficiency anemia due to chronic blood loss D50.0 ; Hyperlipidemia E78.5 and Essential hypertension I10 [place] [address] [facility] [id number] [address] [place] [address] Jun, [place] [address] [place] [id number] [address] [place] [address] Jun, Vitamin B12 deficiency E53.8 [place] [address] [place] [id number] [address] [place] [address] 16 Jun, 2016 Type 2 diabetes mellitus wit hout complication E11.9 ; Acquired hypothyroidism E03.9 ; Iron deficiency anemia due to chronic blood loss D50.0 ; Hyperlipidemia E78.5 ; Essential hypertension I10 ; Chronic tension-type headache, intractable G44.221 ; Pulsatile tinnitus, bilateral H93.13 ; Obstructive sleep apnea on CPAP G47.33 and Major depressive disorder, recurrent episode, moderate F33.1 [place] [address] [place] [id number] [address] [place] [address] May, Vitamin B12 deficiency E53.8 [place] [address] [id number] [address] [place] [address] 08 May, 2016 [facility] [address] [facility] [id number] [address] [place] [address] Apr, Vitamin B12 deficiency E53.8 [facility] [address] [facility] [id number] [address] [place] [address] Apr, [facility] [address] [facility] [id number] [address] [place] [address] Mar, Chronic tension-type headach e, intractable G44.221 and Major depressive disorder, recurrent episode, moderate F33.1 [facility] [address] [facility] [id number] [address] [place] [address] Mar, Vitamin B12 deficiency E53.8 [facility] [address] [facility] [id number] [address] [place] [address] February, [facility] [address] [facility] [id number] [address] [place] [address] February, Vitamin B12 deficiency E53.8 [facility] [address] [facility] [id number] [address] [place] [address] February, [facility] [address] [facility] [id number] [address] [place] [address] Jan, Dysuria R30.0 [facility] [address] [facility] [id number] [address] [place] [address] Jan, Type 2 diabetes mellitus wit hout complication E11.9 and Essential hypertension I10 [facility] [address] [facility] [id number] [address] [place] [address] 15 Jan, 2016 Chronic diarrhea K52.9 [facility] [address] [facility] [id number] [address] [place] [address] Jan, [facility] [address] [facility] [id number] [address] [place] [address] Jan, Chronic diarrhea K52.9 [facility] [address] [facility] [id number] [address] [place] [address] Jan, [facility] [address] [facility] [id number] [address] [place] [address] Jan, Dysuria R30.0 [facility] [address] [facility] [id number] [address] [place] [address] 07 Jan, 2016 Vitamin B12 deficiency E53.8 [facility] [address] [facility] [id number] [address] [place] [address] 07 Jan, 2016 Dysuria R30.0 and Iron defic iency anemia due to chronic blood loss D50.0 [place] [address] [place] [id number] [address] [place] [address] 05 Jan, 2016 Dysuria R30.0 [facility] [address] [place] [id number] [address] [place] [address] 04 Jan, 2016 [facility] [address] [place] [address] 15 Dec, 2015 [facility] [address] [place] [id number] [address] [place] [address] Dec, Iron deficiency anemia due t o chronic blood loss D50.0 [facility] [address] [facility] [id number] [address] [place] [address] 10 Dec, 2015 Dysuria R30.0 ; Fatigue R53. 83 ; Hyperlipidemia E78.5 and Diarrhea R19.7 [facility] [address] [facility] [id number] [address] [place] [address] 09 Dec, 2015 [facility] [address] [facility] [id number] [address] [place] [address] Dec, [place] [address] [place] [id number] [address] [place] [address] 10 Nov, 2015 Vitamin B12 deficiency E53.8 [facility] [address] [place] [id number] [address] [place] [address] Oct, Vitamin B12 deficiency E53.8 [facility] [address] [facility] [id number] [address] [place] [address] Oct, [facility] [address] [facility] [id number] [address] [place] [address] 09 Oct, 2015 Headache R51 [facility] [address] [facility] [id number] [address] [place] [address] 07 Oct, 2015 Essential hypertension I10 ; Type 2 diabetes mellitus without complication E11.9 ; Vitamin B12 deficiency E53.8 ; Acquired hypothyroidism E03.9 ; Iron deficiency anemia due to chronic blood loss D50.0 and Hyperlipidemia E78.5 [place] [address] [facility] [id number] [address] [place] [address] Sep, Essential hypertension I10 ; Vitamin B12 deficiency E53.8 ; Iron deficiency anemia due to chronic blood loss D50.0 ; Type 2 diabetes mellitus without complication E11.9 ; Hyperlipidemia E78.5 and Acquired hypothyroidism E03.9 [facility] [address] [place] [id number] [address] [place] [address] Sep, [facility] [address] [place] [id number] [address] [place] [address] Sep, [facility] [address] [place] [id number] [address] [place] [address] Jul, [facility] [address] [place] [address] Jun, [facility] [address] [place] [id number] [address] [place] [address] 18 Jun, 2015 [facility] [address] [place] [id number] [address] [place] [address] 15 Jun, 2015 Hyperlipidemia 272.4 ; Iron deficiency anemia 280.9 ; Hypothyroidism 244.9 ; Diabetes mellitus without mention of complication, type II or unspecified type, not stated as uncontrolled 250.00 and Hypertension 401.9 [facility] [address] [place] [id number] [address] [place] [address] Jun, [facility] [address] [id number] [address] [place] [address] Jun, [facility] [address] [id number] [address] [place] [address] May, Hyperlipidemia 272.4 [facility] [address] [id number] [address] [place] [address] May, [facility] [address] [id number] [address] [place] [address] May, [facility] [address] [id number] [address] [place] [address] Apr, Diabetes mellitus without me ntion of complication, type II or unspecified type, not stated as uncontrolled 250.00 ; Hypothyroidism 244.9 ; Hyperlipidemia 272.4 ; Pain in joint, lower leg 719.46 and RUQ pain 789.01 [facility] [address] [facility] [id number] [address] [place] [address] Mar, Sinusitis 473.9 [facility] [address] [id number] [address] [place] [address] Mar, [facility] [address] [id number] [address] [place] [address] Mar, [facility] [address] [facility] [id number] [address] [place] [address] Mar, Hematochezia 578.1 [facility] [address] [id number] [address] [place] [address] February, Sinusitis 473.9 [facility] [address] [id number] [address] [place] [address] February, [facility] [address] [id number] [address] [place] [address] Jan, [facility] [address] [facility] [id number] [address] [place] [address] Jan, [facility] [address] [id number] [facility] [place] [address] 24 Dec, 2014 [facility] [address] [id number] [address] [place] [address], [place] [address] Dec, [facility] [address] [id number] [address] [place] [address], [place] [address] Dec, [facility] [address] [id number] [address] [place] [address], [place] [address] Dec, [facility] [address] [id number] [address] [place] [address], [place] [address] Dec, [facility] [address] [id number] [address] [place] [address], [place] [address] Dec, [facility] [address] [id number] [address] [place] [address], [place] [address] Dec, [facility] [address] [id number] [address] [place] [address], [place] [address] Dec, [facility] [address] [id number] [address] [place] [address], [place] [address] Dec, [facility] [address] [id number] [address] [place] [address], [place] [address] Dec, [facility] [address] [id number] [address] [place] [address], [place] [address] Dec, [facility] [address] [id number] [address] [place] [address], [place] [address] Nov, [facility] [address] [id number] [address] [place] [address], [place] [address] Nov, [facility] [address] [id number] [address] [place] [address], [place] [address] Nov, [facility] [address] [id number] [address] [place] [address], [place] [address] Nov, [facility] [address] [id number] [address] [place] [address], [place] [address] Oct, [facility] [address] [id number] [address] [place] [address], [place] [address] Oct, [facility] [address] [id number] [address] [place] [address], [place] [address] Oct, [facility] [address] [id number] [address] [place] [address], [place] [address] Oct, [facility] [address] [id number] [address] [place] [address], [place] [address] Oct, [facility] [address] [id number] [address] [place] [address], [place] [address] Oct, [facility] [address] [id number] [address] [place] [address], [place] [address] Sep, [facility] [address] [id number] [address] [place] [address], [place] [address] Sep, [facility] [address] [id number] [address] [place] [address], [place] [address] Sep, [facility] [address] [id number] [address] [place] [address], [place] [address] Sep, [facility] [address] [id number] [address] [place] [address], [place] [address] Sep, [facility] [address] [id number] [address] [place] [address], [place] [address] Sep, [facility] [address] [id number] [address] [place] [address], [place] [address] Sep, [facility] [address] [id number] [address] [place] [address], [place] [address] Aug, [facility] [address] [id number] [address] [place] [address], [place] [address] Aug, [facility] [address] [id number] [address] [place] [address], [place] [address] Aug, [facility] [address] [id number] [address] [place] [address] Aug, [facility] [address] [id number] [address] [place] [address], [place] [address] Aug, [facility] [address] [id number] [address] [place] [address] Aug, [facility] [address] [id number] [address] [place] [address], [place] [address] Aug, [facility] [address] [id number] [address] [place] [address] Aug, [facility] [address] [id number] [address] [place] [address], [place] [address] Aug, [facility] [address] [id number] [address] [place] [address], [place] [address] Aug, [facility] [address] [id number] [address] [place] [address], [place] [address] Aug, [facility] [address] [id number] [address] [place] [address], [place] [address] Aug, [facility] [address] [id number] [address] [place] [address] Aug, [facility] [address] [id number] [address] [place] [address], [place] [address] Aug, [facility] [address] [id number] [address] [place] [address] Jul, [facility] [address] [id number] [address] [place] [address] Jul, [facility] [address] [id number] [address] [place] [address] Jul, [facility] [address] [id number] [address] [place] [address] Jul, [facility] [address] [id number] [address] [place] [address], [place] [address] Jun, [facility] [address] [id number] [facility] [place] [address] 24 Sep, 2013 [facility] [address] [id number] [facility] [place] [address] 23 Jun, 2013 [facility] [address] [id number] [facility] [place] [address] 23 Jun, 2013 [facility] [address] [id number] [address] [place] [address], [place] [address] 19 Jun, 2013 [facility] [address] [id number] [address] [place] [address], [place] [address] 19 Jun, 2013 [facility] [address] [id number] [address] [place] [address], [place] [address] 11 Jun, 2013 [facility] [address] [id number] [address] [place] [address], [place] [address] 11 Jun, 2013 [facility] [address] [id number] [address] [place] [address], [place] [address] 11 Jun, 2013 [facility] [address] [id number] [address] [place] [address], [place] [address] 11 Jun, 2013 [facility] [address] [id number] [address] [place] [address], [place] [address] 10 Jun, 2013 [facility] [address] [id number] [address] [place] [address], [place] [address] 10 Jun, 2013 [facility] [address] [id number] [address] [place] [address], [place] [address] 09 Jun, 2013 [facility] [address] [id number] [address] [place] [address], [place] [address] 09 Jun, 2013 [facility] [address] [id number] [address] [place] [address], [place] [address] 14 May, 2014 [facility] [address] [id number] [address] [place] [address], [place] [address] 14 May, 2014 [facility] [address] [id number] [address] [place] [address], [place] [address] May, [facility] [address] [id number] [facility] [place] [address] May, [facility] [address] [id number] [facility] [place] [address] May, [facility] [address] [id number] [facility] [place] [address] May, [facility] [address] [id number] [address] [place] [address], [place] [address] Apr, [facility] [address] [id number] [address] [place] [address], [place] [address] Apr, [facility] [address] [id number] [address] [place] [address], [place] [address] Apr, [facility] [address] [id number] [address] [place] [address], [place] [address] Apr, [facility] [address] [id number] [address] [place] [address], [place] [address] Apr, [facility] [address] [id number] [address] [place] [address], [place] [address] Apr, [facility] [address] [id number] [address] [place] [address], [place] [address] Apr, [facility] [address] [id number] [address] [place] [address], [place] [address] Apr, [facility] [address] [id number] [address] [place] [address], [place] [address] Apr, [facility] [address] [id number] [address] [place] [address], [place] [address] Apr, [facility] [address] [id number] [address] [place] [address], [place] [address] Apr, [facility] [address] [id number] [address] [place] [address], [place] [address] Mar, [facility] [address] [id number] [address] [place] [address], [place] [address] Mar, [facility] [address] [id number] [address] [place] [address], [place] [address] Mar, [facility] [address] [id number] [address] [place] [address], [place] [address] Mar, [facility] [address] [id number] [address] [place] [address], [place] [address] February, [facility] [address] [id number] [address] [place] [address], [place] [address] February, [facility] [address] [id number] [address] [place] [address], [place] [address] Jan, [facility] [address] [id number] [address] [place] [address], [place] [address] Jan, [address] [id number] Jan, [facility] [address] [id number] [address] [place] [address], [place] [address] Jan, [facility] [address] [id number] [address] [place] [address], [place] [address] Jan, [facility] [address] [id number] [address] [place] [address], [place] [address] Jan, [facility] [address] [id number] [address] [place] [address], [place] [address] Jan, [facility] [address] [id number] [address] [place] [address], [place] [address] Jan, [facility] [address] [id number] [address] [place] [address], [place] [address] Jan, [facility] [address] [id number] [address] [place] [address], [place] [address] Jan, [facility] [address] [id number] [address] [place] [address], [place] [address] Jan, [facility] [address] [id number] [facility] [place] [address] 07 Jan, 2014 [facility] [address] [id number] [address] [place] [address], [place] [address] Jan, [facility] [address] [id number] [address] [place] [address], [place] [address] Jan, [facility] [address] [id number] [address] [place] [address], [place] [address] Jan, [facility] [address] [id number] [address] [place] [address], [place] [address] Jan, [facility] [address] [id number] [address] [place] [address], [place] [address] Jan, [facility] [address] [id number] [address] [place] [address], [place] [address] Dec, [facility] [address] [id number] [address] [place] [address], [place] [address] Dec, [facility] [address] [id number] [address] [place] [address], [place] [address] Dec, [facility] [address] [id number] [address] [place] [address], [place] [address] Dec, [facility] [address] [id number] [address] [place] [address], [place] [address] Dec, [facility] [address] [id number] [address] [place] [address], [place] [address] Dec, [facility] [address] [id number] [address] [place] [address], [place] [address] Dec, [facility] [address] [id number] [address] [place] [address], [place] [address] Nov, [facility] [address] [id number] [address] [place] [address], [place] [address] Nov, [facility] [address] [id number] [address] [place] [address], [place] [address] Nov, [facility] [address] [id number] [facility] [place] [address] Nov, [facility] [address] [id number] [address] [place] [address], [place] [address] Nov, [facility] [address] [id number] [address] [place] [address], [place] [address] Nov, [facility] [address] [id number] [address] [place] [address], [place] [address] Nov, [facility] [address] [id number] [address] [place] [address], [place] [address] Oct, [facility] [address] [id number] [address] [place] [address], [place] [address] Oct, [facility] [address] [id number] [address] [place] [address], [place] [address] Sep, [facility] [address] [id number] [address] [place] [address], [place] [address] Sep, [facility] [address] [id number] [address] [place] [address], [place] [address] Sep, [facility] [address] [id number] [address] [place] [address], [place] [address] Sep, [facility] [address] [id number] [address] [place] [address], [place] [address] Sep, [facility] [address] [id number] [address] [place] [address], [place] [address] Sep, [facility] [address] [id number] [address] [place] [address], [place] [address] Sep, [facility] [address] [id number] [address] [place] [address], [place] [address] Sep, [facility] [address] [id number] [address] [place] [address], [place] [address] Sep, [facility] [address] [id number] [address] [place] [address] Sep, [facility] [address] [id number] [address] [place] [address] Aug, [facility] [address] [id number] [address] [place] [address] Aug, [facility] [address] [id number] [address] [place] [address] Aug, [facility] [address] [id number] [address] [place] [address] Aug, [facility] [address] [id number] [address] [place] [address] Aug, [facility] [address] [id number] [address] [place] [address] Jul, [facility] [address] [id number] [address] [place] [address] Jul, [facility] [address] [id number] [address] [place] [address] Jul, [facility] [address] [id number] [address] [place] [address] Jul, IMMUNIZATIONS No Known Immunizations SOCIAL HISTORY Never Assessed REASON FOR VISIT refill request PLAN OF CARE VITAL SIGNS MEDICATIONS Medication Instructions Dosage Frequency Start Date End Date Duration S tatus Cyanocobalamin 1000 MCG/ML Injection one time monthly inject 1 ml 90 days Active VanishPoint Syringe 23G X 1" 3 ML as directed Dec, Active RESULTS No Results PROCEDURES No Known [...] surgery to remove heel spur 6/13 /2018 Hospitalization History Surgeries
--- OUTSIDE RECORDS SUMMARY | 2020-03-16 12:11 | XMS REPORT | Continuity of Care Document ---
Demographics Preferred Language Unknown Marital Status Unknown Hoahaoism Affiliation Unknown Race Unknown Ethnic Group Unknown Author Organization Unknown Address Unknown Phone Unavailable Allergies Active Description [...] N/A 07/25/2013 Yes No Allergy Information Available [id number] Drug Allergy Unknown N/A 014 Yes myocins myocins Unknown NAUSEA 12/02/2015 Yes tetanus diphtheria toxoids [id number] Drug Allergy Unknown HIVES 12/02/2015 Yes adhesive tape [id number] Nathan g Allergy Unknown HIVES 05/11/2017 Yes atorvastatin [id number] Drug Allergy Unknown NAUSEA 05/11/2017 Yes hydromorphone [id number] Nathan g Allergy Unknown hallucinations 05/11/2017 Yes Influenza Virus Vaccines [id number] Drug Allergy Unknown NAUSEA 05/11/2017 Yes morphine [id number] Drug Allergy Unknown hallcination 05/11/2017 Yes Penicillins [id number] Drug Aller gy Unknown HIVES 05/11/2017 Yes simvastatin [id number] Drug Aller gy Unknown NAUSEA 05/11/2017 Yes Sulfa (Sulfonamide Antibiotics) [id number] 0491 Drug Allergy Unknown HIVES 017 Yes tetanus and diphtheria toxoids [id number] 614 Drug Allergy Unknown HIVES 05/11/2017 Yes adhesive tape [id number] Nathan g Allergy Moderate HIVES 05/18/2017 Yes Penicillins [id number] Drug Aller gy Moderate HIVES 05/18/2017 Yes Sulfa (Sulfonamide Antibiotics) [id number] 0491 Drug Allergy Moderate HIVES 2016 Yes tetanus and diphtheria toxoids [id number] 614 Drug Allergy Moderate HIVES 05/18/2017 Yes atorvastatin [id number] Drug Allergy Mild NAUSEA 05/18/2017 Yes hydromorphone [id number] Nathan g Allergy Mild hallucinations 05/18/2017 Yes Influenza Virus Vaccines [id number] Drug Allergy Mild NAUSEA 05/18/2017 Yes morphine [id number] Drug Allergy Mild hallcination 05/18/2017 Yes simvastatin [id number] Drug Aller gy Mild NAUSEA 05/18/2017 Medications There is no data. Problems Date Dx Coded Attending Type Code Diagnosis Diagnosed By 07/25/2013 GUMARO KIM DO 250.00 DIABETES II CONTROLLED (UNCOMPLICATED) 07/25/2013 STEFANIE LECHUGA APRN 250.00 DIABETES II CONTROLLED (UNCOMPLICATED) 07/25/2013 VELMA JONES, WIL R 250.00 DIABETES II CONTROLLED (UNCOMPLICATED) 07/25/2013 VELMA PEOPLESOFT PROGRAMMER, WIL R 250.00 DIABETES II CONTROLLED (UNCOMPLICATED) 07/25/2013 VELMA PEOPLESOFT PROGRAMMER, WIL R 250.00 DIABETES II CONTROLLED (UNCOMPLICATED) 07/25/2013 VELMA JONES, WIL R 250.00 DIABETES II CONTROLLED (UNCOMPLICATED) 07/25/2013 VELMA JONES, WIL R 250.00 DIABETES II CONTROLLED (UNCOMPLICATED) 07/25/2013 VELMA PEOPLESOFT PROGRAMMER, WIL R 250.00 DIABETES II CONTROLLED (UNCOMPLICATED) 07/25/2013 CARA BUENROSTRO DDS 250.00 DIABETES II CONTROLLED (UNCOMPLICATED) 07/25/2013 GUMARO KIM DO 250.00 DIABETES II CONTROLLED (UNCOMPLICATED) 07/25/2013 VELMA SCHNEIDERN, WIL R 250.00 DIABETES II CONTROLLED (UNCOMPLICATED) 07/25/2013 VELMA JONES, WIL R 250.00 DIABETES II CONTROLLED (UNCOMPLICATED) 07/25/2013 PAOLO OCAMPO PSYD 250.00 DIABETES II CONTROLLED (UNCOMPLICATED) 07/25/2013 VELMA PEOPLESOFT PROGRAMMER, WIL R 250.00 DIABETES II CONTROLLED (UNCOMPLICATED) 07/25/2013 PAOLO OCAMPO PSYD 250.00 DIABETES II CONTROLLED (UNCOMPLICATED) 07/25/2013 VELMA PEOPLESOFT PROGRAMMER, WIL R 250.00 DIABETES II CONTROLLED (UNCOMPLICATED) 07/25/2013 VELMA JONES, WIL R 250.00 DIABETES II CONTROLLED (UNCOMPLICATED) 07/25/2013 VELMA JONES, WIL R 250.00 DIABETES II CONTROLLED (UNCOMPLICATED) 08/08/2013 LECHUGA PEOPLESOFT PROGRAMMER, STEFANIE R 786.2 COUGH 08/08/2013 VELMA PEOPLESOFT PROGRAMMER, WIL R 786.2 COUGH 08/08/2013 VELMA PEOPLESOFT PROGRAMMER, WIL R 786.2 COUGH 08/08/2013 VELMA PEOPLESOFT PROGRAMMER, WIL R 786.2 COUGH 08/08/2013 VELMA PEOPLESOFT PROGRAMMER, WIL R 786.2 COUGH 08/08/2013 VELMA PEOPLESOFT PROGRAMMER, WIL R 786.2 COUGH 08/08/2013 VELMA PEOPLESOFT PROGRAMMER, WIL R 786.2 COUGH 08/08/2013 CHITRA ACOSTAS, CARA 78 6.2 COUGH 08/08/2013 KIM DO, GUMARO K 786.2 COUGH 08/08/2013 VELMA PEOPLESOFT PROGRAMMER, WIL R 786.2 COUGH 08/08/2013 VELMA PEOPLESOFT PROGRAMMER, WIL R 786.2 COUGH 08/08/2013 PAOLO OCAMPO PSYD L 786.2 COUGH 08/08/2013 VELMA PEOPLESOFT PROGRAMMER, WIL R 786.2 COUGH 08/08/2013 PAOLO OCAMPO PSYD L 786.2 COUGH 08/08/2013 VELMA PEOPLESOFT PROGRAMMER, WIL R 786.2 COUGH 08/08/2013 VELMA PEOPLESOFT PROGRAMMER, WIL R 786.2 COUGH 08/08/2013 VELMA PEOPLESOFT PROGRAMMER, IWL R 786.2 COUGH 09/04/2013 VELMA PEOPLESOFT PROGRAMMER, WIL R V78.0 ANEMIA SCREENING 09/04/2013 VELMA PEOPLESOFT PROGRAMMER, WIL R V78.0 ANEMIA SCREENING 09/04/2013 VELMA PEOPLESOFT PROGRAMMER, WIL R V78.0 ANEMIA SCREENING 09/04/2013 VELMA PEOPLESOFT PROGRAMMER, WIL R V78.0 ANEMIA SCREENING 09/04/2013 VELMA PEOPLESOFT PROGRAMMER, WIL R V78.0 ANEMIA SCREENING 09/04/2013 CHITRA ACOSTAS, CARA V7 8.0 ANEMIA SCREENING 09/04/2013 KIM DO, GUMARO K V78.0 ANEMIA SCREENING 09/04/2013 VELMA PEOPLESOFT PROGRAMMER, WIL R V78.0 ANEMIA SCREENING 09/04/2013 VELMA PEOPLESOFT PROGRAMMER, WIL R V78.0 ANEMIA SCREENING 09/04/2013 PAOLO OCAMPO PSYD L V78.0 ANEMIA SCREENING 09/04/2013 VELMA PEOPLESOFT PROGRAMMER, WIL R V78.0 ANEMIA SCREENING 09/04/2013 PAOLO OCAMPO PSYD L V78.0 ANEMIA SCREENING 09/04/2013 VELMA PEOPLESOFT PROGRAMMER, WIL R V78.0 ANEMIA SCREENING 09/04/2013 VELMA PEOPLESOFT PROGRAMMER, WIL R V78.0 ANEMIA SCREENING 09/04/2013 VELMA PEOPLESOFT PROGRAMMER, WIL R V78.0 ANEMIA SCREENING 01/17/2014 VELMA PEOPLESOFT PROGRAMMER, WIL R 789.07 ABDOMINAL PAIN GENERALIZED 01/17/2014 VELMA PEOPLESOFT PROGRAMMER, WIL R 789.07 ABDOMINAL PAIN GENERALIZED 01/17/2014 VELMA PEOPLESOFT PROGRAMMER, WIL R 789.07 ABDOMINAL PAIN GENERALIZED 01/17/2014 CHITRA CHACON, CARA 789.07 ABDOMINAL PAIN GENERALIZED 01/17/2014 KIM DO, GUMARO K 789.07 ABDOMINAL PAIN GENERALIZED 01/17/2014 VELMA PEOPLESOFT PROGRAMMER, WIL R 789.07 ABDOMINAL PAIN GENERALIZED 01/17/2014 VELMA PEOPLESOFT PROGRAMMER, WIL R 789.07 ABDOMINAL PAIN GENERALIZED 01/17/2014 PAOLO OCAMPO PSYD L 789.07 ABDOMINAL PAIN GENERALIZED 01/17/2014 VELMA PEOPLESOFT PROGRAMMER, WIL R 789.07 ABDOMINAL PAIN GENERALIZED 01/17/2014 PAOLO OCAMPO PSYD L 789.07 ABDOMINAL PAIN GENERALIZED 01/17/2014 VELMA PEOPLESOFT PROGRAMMER, WIL R 789.07 ABDOMINAL PAIN GENERALIZED 01/17/2014 VELMA PEOPLESOFT PROGRAMMER, WIL R 789.07 ABDOMINAL PAIN GENERALIZED 01/17/2014 VELMA PEOPLESOFT PROGRAMMER, WIL R 789.07 ABDOMINAL PAIN GENERALIZED 01/29/2014 VELMA PEOPLESOFT PROGRAMMER, WIL R 789.00 ABDOMINAL PAIN UNSPECIFIED SITE 01/29/2014 VELMA PEOPLESOFT PROGRAMMER, WIL R 789.00 ABDOMINAL PAIN UNSPECIFIED SITE 01/29/2014 CHITRA ACOSTAS, CARA 789.00 ABDOMINAL PAIN UNSPECIFIED SITE 01/29/2014 KIM DO, GUMARO K 789.00 ABDOMINAL PAIN UNSPECIFIED SITE 01/29/2014 VELMA PEOPLESOFT PROGRAMMER, WIL R 789.00 ABDOMINAL PAIN UNSPECIFIED SITE 01/29/2014 VELMA PEOPLESOFT PROGRAMMER, WLI R 789.00 ABDOMINAL PAIN UNSPECIFIED SITE 01/29/2014 PAOLO OCAMPO PSYD L 789.00 ABDOMINAL PAIN UNSPECIFIED SITE 01/29/2014 VELMA PEOPLESOFT PROGRAMMER, WIL R 789.00 ABDOMINAL PAIN UNSPECIFIED SITE 01/29/2014 PAOLO OCAMPO PSYD L 789.00 ABDOMINAL PAIN UNSPECIFIED SITE 01/29/2014 VELMA SCHNEIDERN, WIL R 789.00 ABDOMINAL PAIN UNSPECIFIED SITE 01/29/2014 VELMA SCHNEIDERN, WIL R 789.00 ABDOMINAL PAIN UNSPECIFIED SITE 01/29/2014 VELMA SCHNEIDERN, WIL R 789.00 ABDOMINAL PAIN UNSPECIFIED SITE 03/19/2014 VELMA SCHNEIDERN, WIL R 719.46 PAIN IN JOINT INVOLVING LOWER LEG 03/19/2014 VELMA JONES WIL R 780.79 OTHER MALAISE AND FATIGUE 03/19/2014 BUENROSTRO DDS, CARA 719.46 PAIN IN JOINT INVOLVING LOWER LEG 03/19/2014 BUENROSTRO DDS, CARA 780.79 OTHER MALAISE AND FATIGUE 03/19/2014 KIM DOGUMARO K 719.46 PAIN IN JOINT INVOLVING LOWER LEG 03/19/2014 KIM DOGUMARO K 780.79 OTHER MALAISE AND FATIGUE 03/19/2014 [...] 780.79 OTHER MALAISE AND FATIGUE 03/19/2014 VELMA JONES WIL R 719.46 PAIN IN JOINT INVOLVING LOWER LEG 03/19/2014 VELMA JONES, WIL R 780.79 OTHER MALAISE AND FATIGUE 03/19/2014 PAOLO OCAMPO PSYD L 719.46 PAIN IN JOINT INVOLVING LOWER LEG 03/19/2014 PAOLO OCAMPO PSYD L 780.79 OTHER MALAISE AND FATIGUE 03/19/2014 VELMA SCHNEIDERN, WIL R 719.46 PAIN IN JOINT INVOLVING LOWER LEG 03/19/2014 VELMA JONES WIL R 780.79 OTHER MALAISE AND FATIGUE 03/19/2014 VELMA JONES WIL R 719.46 PAIN IN JOINT INVOLVING LOWER LEG 03/19/2014 VELMA PEOPLESOFT PROGRAMMER, WIL R 780.79 OTHER MALAISE AND FATIGUE 03/19/2014 VELMA PEOPLESOFT PROGRAMMER, WIL R 719.46 PAIN IN JOINT INVOLVING LOWER LEG 03/19/2014 VELMA PEOPLESOFT PROGRAMMER, WIL R 780.79 OTHER MALAISE AND FATIGUE 04/09/2014 BUENROSTRO DDS, CARA 787.91 DIARRHEA 04/09/2014 BUENROSTRO DDS, CARA 789.06 ABDOMINAL PAIN EPIGASTRIC 04/09/2014 KIM DO, GUMARO K 787.91 DIARRHEA 04/09/2014 KIM DO, GUMARO K 789.06 ABDOMINAL PAIN EPIGASTRIC 04/09/2014 VELMA PEOPLESOFT PROGRAMMER, WIL R 787.91 DIARRHEA 04/09/2014 VELMA PEOPLESOFT PROGRAMMER, WIL R 789.06 ABDOMINAL PAIN EPIGASTRIC 04/09/2014 VELMA PEOPLESOFT PROGRAMMER, WIL R 787.91 DIARRHEA 04/09/2014 VELMA PEOPLESOFT PROGRAMMER, WIL R 789.06 ABDOMINAL PAIN EPIGASTRIC 04/09/2014 PAOLO OCAMPO PSYD L 787.91 DIARRHEA 04/09/2014 PAOLO OCAMPO PSYD L 789.06 ABDOMINAL PAIN EPIGASTRIC 04/09/2014 VELMA PEOPLESOFT PROGRAMMER, WIL R 787.91 DIARRHEA 04/09/2014 VELMA PEOPLESOFT PROGRAMMER, WIL R 789.06 ABDOMINAL PAIN EPIGASTRIC 04/09/2014 PAOLO OCAMPO PSYD L 787.91 DIARRHEA 04/09/2014 PAOLO OCAMPO PSYD L 789.06 ABDOMINAL PAIN EPIGASTRIC 04/09/2014 VELMA PEOPLESOFT PROGRAMMER, WIL R 787.91 DIARRHEA 04/09/2014 VELMA PEOPLESOFT PROGRAMMER, WIL R 789.06 ABDOMINAL PAIN EPIGASTRIC 04/09/2014 VELMA PEOPLESOFT PROGRAMMER, WIL R 787.91 DIARRHEA 04/09/2014 VELMA PEOPLESOFT PROGRAMMER, WIL R 789.06 ABDOMINAL PAIN EPIGASTRIC 04/09/2014 VELMA PEOPLESOFT PROGRAMMER, WIL R 787.91 DIARRHEA 04/09/2014 VELMA PEOPLESOFT PROGRAMMER, WIL R 789.06 ABDOMINAL PAIN EPIGASTRIC 05/02/2014 KIM DOMARGARITAA K 733.92 CHONDROMALACIA 05/02/2014 VELMA PEOPLESOFT PROGRAMMER, WIL R 733.92 CHONDROMALACIA 05/02/2014 VELMA PEOPLESOFT PROGRAMMER, WIL R 733.92 CHONDROMALACIA 05/02/2014 PAOLO OCAMPO PSYD L 733.92 CHONDROMALACIA 05/02/2014 VELMA PEOPLESOFT PROGRAMMER, WIL R 733.92 CHONDROMALACIA 05/02/2014 PAOLO OCAMPO PSYD L 733.92 CHONDROMALACIA 05/02/2014 VELMA PEOPLESOFT PROGRAMMER, WIL R 733.92 CHONDROMALACIA 05/02/2014 VELMA PEOPLESOFT PROGRAMMER, WIL R 733.92 CHONDROMALACIA 05/02/2014 VELMA PEOPLESOFT PROGRAMMER, WIL R 733.92 CHONDROMALACIA 05/22/2014 VELMA PEOPLESOFT PROGRAMMER, WIL R 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 THYROTOXIC CRISIS OR STORM 05/22/2014 VELMA SCHNEIDERN, WIL R 272.1 HYPERTRIGLYCERIDEMIA 05/22/2014 VELMA SCHNEIDERN, WIL R 285.9 ANEMIA 05/22/2014 VELMA PEOPLESOFT PROGRAMMER, WIL R 788.30 URINARY INCONTINENCE UNSPECIFIED 05/22/2014 VELMA PEOPLESOFT PROGRAMMER, WIL R 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 THYROTOXIC CRISIS OR STORM 05/22/2014 VELMA JONES, WIL R 272.1 HYPERTRIGLYCERIDEMIA 05/22/2014 VELMA PEOPLESOFT PROGRAMMER, WIL R 285.9 ANEMIA 05/22/2014 VELMA PEOPLESOFT PROGRAMMER, WIL R 788.30 URINARY INCONTINENCE UNSPECIFIED 05/22/2014 PAOLO OCAMPO PSYD L 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 THYROTOXIC CRISIS OR STORM 05/22/2014 PAOLO OCAMPO PSYD L 272.1 HYPERTRIGLYCERIDEMIA 05/22/2014 PAOLO OCAMPO PSYD L 285.9 ANEMIA 05/22/2014 PAOLO OCAMPO PSYD L 788.30 URINARY INCONTINENCE UNSPECIFIED 05/22/2014 VELMA PEOPLESOFT PROGRAMMER, WIL R 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 THYROTOXIC CRISIS OR STORM 05/22/2014 VELMA PEOPLESOFT PROGRAMMER, WIL R 272.1 HYPERTRIGLYCERIDEMIA 05/22/2014 VELMA PEOPLESOFT PROGRAMMER, WIL R 285.9 ANEMIA 05/22/2014 VELMA PEOPLESOFT PROGRAMMER, WIL R 788.30 URINARY INCONTINENCE UNSPECIFIED 05/22/2014 VELMA PEOPLESOFT PROGRAMMER, WIL R 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 THYROTOXIC CRISIS OR STORM 05/22/2014 VELMA PEOPLESOFT PROGRAMMER, WIL R 272.1 HYPERTRIGLYCERIDEMIA 05/22/2014 VELMA PEOPLESOFT PROGRAMMER, WIL R 285.9 ANEMIA 05/22/2014 VELMA PEOPLESOFT PROGRAMMER, WIL R 788.30 URINARY INCONTINENCE UNSPECIFIED 05/22/2014 VELMA PEOPLESOFT PROGRAMMER, WIL R 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 THYROTOXIC CRISIS OR STORM 05/22/2014 VELMA PEOPLESOFT PROGRAMMER, WIL R 272.1 HYPERTRIGLYCERIDEMIA 05/22/2014 VELMA PEOPLESOFT PROGRAMMER, WIL R 285.9 ANEMIA 05/22/2014 VELMA PEOPLESOFT PROGRAMMER, WIL R 788.30 URINARY INCONTINENCE UNSPECIFIED 06/18/2014 VELMA PEOPLESOFT PROGRAMMER, WIL R 300.00 ANXIETY UNSPEC 06/18/2014 PAOLO OCAMPO PSYD L 300.00 ANXIETY UNSPEC 06/18/2014 VELMA PEOPLESOFT PROGRAMMER, WIL R 300.00 ANXIETY UNSPEC 06/18/2014 PAOLO OCAMPO PSYD L 300.00 ANXIETY UNSPEC 06/18/2014 VELMA PEOPLESOFT PROGRAMMER, WIL R 300.00 ANXIETY UNSPEC 06/18/2014 VELMA PEOPLESOFT PROGRAMMER, WIL R 300.00 ANXIETY UNSPEC 06/18/2014 VELMA PEOPLESOFT PROGRAMMER, WIL R 300.00 ANXIETY UNSPEC 06/28/2014 PAOLO OCAMPO PSYD L 296.32 MO DEPRESSIVE RECURRENT MODERATE 06/28/2014 VELMA PEOPLESOFT PROGRAMMER, WIL R 296.32 MO DEPRESSIVE RECURRENT MODERATE 06/28/2014 PAOLO OCAMPO PSYD 296.32 MO DEPRESSIVE RECURRENT MODERATE 06/28/2014 VELMA PEOPLESOFT PROGRAMMER, WIL R 296.32 MO DEPRESSIVE RECURRENT MODERATE 06/28/2014 VELMA PEOPLESOFT PROGRAMMER, WIL R 296.32 MO DEPRESSIVE RECURRENT MODERATE 06/28/2014 VELMA PEOPLESOFT PROGRAMMER, WIL R 296.32 MO DEPRESSIVE RECURRENT MODERATE 10/16/2014 VELMA, WIL R PEOPLESOFT PROGRAMMER Ot 724.5 10/16/2014 VELMA, WIL R PEOPLESOFT PROGRAMMER Ot 789.01 10/16/2014 VELMA, WIL R PEOPLESOFT PROGRAMMER Ot 793.6 10/16/2014 VELMA, WIL R PEOPLESOFT PROGRAMMER Ot 787.91 10/16/2014 VELMA, WIL R PEOPLESOFT PROGRAMMER Ot 789.06 10/29/2014 VELMA, WIL R PEOPLESOFT PROGRAMMER Ot 787.91 10/29/2014 VELMA, WIL R PEOPLESOFT PROGRAMMER Ot 789.06 12/31/2014 VELMA, WIL R PEOPLESOFT PROGRAMMER Ot 724.5 12/31/2014 VELMA, WIL R PEOPLESOFT PROGRAMMER Ot 789.01 12/31/2014 VELMA, WIL R PEOPLESOFT PROGRAMMER Ot 793.6 12/31/2014 VELMA, WIL R PEOPLESOFT PROGRAMMER Ot 787.91 12/31/2014 VELMA, WIL R PEOPLESOFT PROGRAMMER Ot 789.06 04/18/2015 VELMA, WIL R PEOPLESOFT PROGRAMMER Ot 724.5 04/18/2015 VELMA, WIL R PEOPLESOFT PROGRAMMER Ot 789.01 04/18/2015 VELMA, WIL R PEOPLESOFT PROGRAMMER Ot 793.6 04/18/2015 VELMA, WIL R PEOPLESOFT PROGRAMMER Ot 787.91 04/18/2015 VELMA, WIL R PEOPLESOFT PROGRAMMER Ot 789.06 04/18/2015 JASON SOMERS, ULI Dennis [...] UPPER LIMB 12/10/2015 RONY SAMANIEGO MD Ot I1 0 ESSENTIAL (PRIMARY) HYPERTENSION 12/10/2015 RONY SAMANIEGO MD Ot Z79.899 OTHER SENIOR LIVING (CURRENT) DRUG THERAPY 01/25/2016 MAYTE DICKERSON PEOPLESOFT PROGRAMMER Ot S32.492A OTH FRACTURE OF LEFT ACETABULUM, INIT FO 01/25/2016 MAYTE DICKERSON PEOPLESOFT PROGRAMMER Ot X58.XXXA EXPOSURE TO OTHER SPECIFIED FACTORS, INI 01/25/2016 MAYTE DICKERSON PEOPLESOFT PROGRAMMER Ot Y92.[address] IN [facility]IVATE 01/25/2016 MAYTE DICKERSON PEOPLESOFT PROGRAMMER Ot Y93.01 ACTIVITY, WALKING, MARCHING AND HIKING 01/25/2016 MAYTE DICKERSON PEOPLESOFT PROGRAMMER Ot Y99 .8 OTHER EXTERNAL CAUSE STATUS 01/27/2016 MAYTE DICKERSON PEOPLESOFT PROGRAMMER Ot S32.492A OTH FRACTURE OF LEFT ACETABULUM, INIT FO 01/27/2016 MAYTE DICKERSON PEOPLESOFT PROGRAMMER Ot X58.XXXA EXPOSURE TO OTHER SPECIFIED FACTORS, INI 01/27/2016 MAYTE DICKERSON PEOPLESOFT PROGRAMMER Ot Y92.[address] IN [facility] 01/27/2016 MAYTE DICKERSON PEOPLESOFT PROGRAMMER Ot Y93.01 ACTIVITY, WALKING, MARCHING AND HIKING 01/27/2016 MAYTE DICKERSON PEOPLESOFT PROGRAMMER Ot Y99 .8 OTHER EXTERNAL CAUSE STATUS 06/29/2016 WIL CARREON PEOPLESOFT PROGRAMMER Ot 724.5 BACKACHE NOS 06/29/2016 WIL CARREON PEOPLESOFT PROGRAMMER Ot 789.01 ABDOMINAL PAIN, RIGHT UPPER QUADRANT 06/29/2016 WIL CARREON PEOPLESOFT PROGRAMMER Ot 793.6 NOSP (ABN) FINDINGS ON RADIOLOGICAL OT 06/29/2016 WIL CARREON PEOPLESOFT PROGRAMMER Ot 787.91 DIARRHEA 06/29/2016 WIL CARREON PEOPLESOFT PROGRAMMER Ot 789.06 ABDOMINAL PAIN, EPIGASTRIC 06/29/2016 JASON [...] CHRONIC TENSION-TYPE HEADACHE, INTRACTAB 07/16/2016 WIL CARREON PEOPLESOFT PROGRAMMER Ot 724.5 BACKACHE NOS 07/16/2016 WIL CARREON R PEOPLESOFT PROGRAMMER Ot 789.01 ABDOMINAL PAIN, RIGHT UPPER QUADRANT 07/16/2016 WIL CARREON R PEOPLESOFT PROGRAMMER Ot 793.6 NOSP (ABN) FINDINGS ON RADIOLOGICAL OT 07/16/2016 WIL CARREON R PEOPLESOFT PROGRAMMER Ot 787.91 DIARRHEA 07/16/2016 WIL CARREON R PEOPLESOFT PROGRAMMER Ot 789.06 ABDOMINAL PAIN, EPIGASTRIC 07/16/2016 ULI GOMEZ MD Ot 553.1 UMBILICAL HERNIA 07/16/2016 ULI GOMEZ MD Ot 564.00 UNSPEC CONSTIPATION 07/16/2016 RONY SAMANIEGO MD Ot G56.02 CARPAL TUNNEL SYNDROME, LEFT UPPER LIMB 07/16/2016 RONY SAMANIEGO MD Ot Z01.818 ENCOUNTER FOR OTHER PREPROCEDURAL EXAMIN 07/16/2016 RONY SAMANIEGO MD Ot Z11.2 ENCOUNTER FOR SCREENING FOR OTHER BACTER 07/16/2016 ESPINOZA SOMERS, BRENTON Reyez Ot G44.221 CHRONIC TENSION-TYPE HEADACHE, INTRACTAB 07/21/2016 WIL CARREON PEOPLESOFT PROGRAMMER Ot 724.5 BACKACHE NOS 07/21/2016 WIL CARREON PEOPLESOFT PROGRAMMER Ot 789.01 ABDOMINAL PAIN, RIGHT UPPER QUADRANT 07/21/2016 WIL CARREON PEOPLESOFT PROGRAMMER Ot 793.6 NOSP (ABN) FINDINGS ON RADIOLOGICAL OT 07/21/2016 WIL CARREON R PEOPLESOFT PROGRAMMER Ot 787.91 DIARRHEA 07/21/2016 WIL CARREON PEOPLESOFT PROGRAMMER Ot 789.06 ABDOMINAL PAIN, EPIGASTRIC 07/21/2016 ULI [...] UNSPECIFIED EAR 08/02/2016 BRENTON DORAN MD Ot M54 .6 PAIN IN THORACIC SPINE 08/02/2016 BRENTON DORAN MD Ot R31 .9 HEMATURIA, UNSPECIFIED 08/02/2016 BRENTON DORAN MD Ot R74 .0 NONSPEC ELEV OF LEVELS OF TRANSAMNS LA 08/02/2016 BRENTON DORAN MD Ot M54 .6 PAIN IN THORACIC SPINE 08/02/2016 BRENTON DORAN MD Ot R31 .9 HEMATURIA, UNSPECIFIED 08/02/2016 BRENTON DORAN MD Ot R74 .0 NONSPEC ELEV OF LEVELS OF TRANSAMNS LA 08/02/2016 RONY REYES MD Ot H93.A9 PULSATILE TINNITUS, UNSPECIFIED EAR 08/04/2016 BRENTON DORAN MD Ot M54 .6 PAIN IN THORACIC SPINE 08/04/2016 BRENTON DORAN MD Ot R31 .9 HEMATURIA, UNSPECIFIED 08/04/2016 BRENTON DORAN MD Ot R74 .0 NONSPEC ELEV OF LEVELS OF TRANSAMNS LA 08/04/2016 BRENTON DORAN MD Ot K76 .0 FATTY (CHANGE OF) LIVER, NOT ELSEWHERE C 08/04/2016 BRENTON DORAN MD Ot R74 .0 NONSPEC ELEV OF LEVELS OF TRANSAMNS LA 08/08/2016 WIL CARREON PEOPLESOFT PROGRAMMER Ot 724.5 BACKACHE NOS 08/08/2016 WIL CARREON PEOPLESOFT PROGRAMMER Ot 789.01 ABDOMINAL PAIN, RIGHT UPPER QUADRANT 08/08/2016 WIL CARREON PEOPLESOFT PROGRAMMER Ot 793.6 NOSP (ABN) FINDINGS ON RADIOLOGICAL OT 08/08/2016 WIL CARREON PEOPLESOFT PROGRAMMER Ot 787.91 DIARRHEA 08/08/2016 WIL CARREON PEOPLESOFT PROGRAMMER Ot 789.06 ABDOMINAL PAIN, EPIGASTRIC 08/08/2016 ULI [...] UNSPECIFIED EAR 08/08/2016 BRENTON DORAN MD Ot K76 .0 FATTY (CHANGE OF) LIVER, NOT ELSEWHERE C 08/08/2016 BRENTON DORAN MD Ot R74 .0 NONSPEC ELEV OF LEVELS OF TRANSAMNS LA 08/08/2016 BRENTON DORAN MD Ot M54 .6 PAIN IN THORACIC SPINE 08/08/2016 BRENTON DORAN MD Ot R31 .9 HEMATURIA, UNSPECIFIED 08/08/2016 BRENTON DORAN MD Ot R74 .0 NONSPEC ELEV OF LEVELS OF TRANSAMNS LA 08/23/2016 BRENTON DORAN MD Ot M54 .6 PAIN IN THORACIC SPINE 08/23/2016 BRENTON DORAN MD Ot R31 .9 HEMATURIA, UNSPECIFIED 08/23/2016 BRENTON DORAN MD Ot R74 .0 NONSPEC ELEV OF LEVELS OF TRANSAMNS LA 08/24/2016 BRENTON DORAN MD Ot K76 .0 FATTY (CHANGE OF) LIVER, NOT ELSEWHERE C 08/24/2016 BRENTON DORAN MD Ot R74 .0 NONSPEC ELEV OF LEVELS OF TRANSAMNS LA 08/26/2016 RONY REYES MD Ot H93.A9 PULSATILE TINNITUS, UNSPECIFIED EAR 08/26/2016 RONY REYES MD Ot 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 09/09/2016 ARTHUR LOVING APRN Ot G47.33 OBSTRUCTIVE SLEEP APNEA (ADULT) (PEDIATR 09/10/2016 ARTHUR LOVING [employer] PROGRAMMER Ot G47.33 OBSTRUCTIVE SLEEP APNEA (ADULT) (PEDIATR 09/29/2016 JENNIFER BRIDGES Ot E11.9 TYPE 2 DIABETES MELLITUS WITHOUT COMPLIC 09/29/2016 JENNIFER BRIDGES L Ot K59.00 CONSTIPATION, UNSPECIFIED 09/29/2016 JENNIFER BRIDGES Ot Z79.84 ORDER MANAGEMENT SPECIALIST (CURRENT) USE OF ORAL HYPOGLYC 09/29/2016 JENNIFER BRIDGES Ot Z79.899 OTHER SENIOR LIVING (CURRENT) DRUG THERAPY 09/30/2016 JENNIFER BRIDGES Ot E11.9 TYPE 2 DIABETES MELLITUS WITHOUT COMPLIC 09/30/2016 JENNIFER BRIDGES L Ot K59.00 CONSTIPATION, UNSPECIFIED 09/30/2016 JENNIFER BRIDGES Ot Z79.84 ORDER MANAGEMENT SPECIALIST (CURRENT) USE OF ORAL HYPOGLYC 09/30/2016 JENNIFER BRIDGES Ot Z79.899 OTHER ORDER MANAGEMENT SPECIALIST (CURRENT) DRUG THERAPY 10/01/2016 JENNIFER BRIDGES Ot E11.9 TYPE 2 DIABETES MELLITUS WITHOUT COMPLIC 10/01/2016 JENNIFER BRIDGES Ot K59.00 CONSTIPATION, UNSPECIFIED 10/01/2016 JENNIFER BRIDGES Ot Z79.84 ORDER MANAGEMENT SPECIALIST (CURRENT) USE OF ORAL HYPOGLYC 10/01/2016 JENNIFER BRIDGES L Ot Z79.899 OTHER SENIOR LIVING (CURRENT) DRUG THERAPY 11/06/2016 ARTHUR LOVING [employer]LES[employer] PROGRAMMER Ot G47.30 SLEEP APNEA, UNSPECIFIED 11/08/2016 ARTHUR LOVING [employer]OPLESO[employer] PROGRAMMER Ot G47.30 SLEEP APNEA, UNSPECIFIED 12/02/2016 GINO SOMERS, HUMBERTO Reyez Ot E11.9 TYPE 2 DIABETES MELLITUS WITHOUT COMPLIC 12/02/2016 GINO SOMERS, HUMBERTO N Ot E53.8 DEFICIENCY OF OTHER SPECIFIED B GROUP 12/02/2016 GINO SOMERS, HUMBERTO N Ot E78.5 HYPERLIPIDEMIA, UNSPECIFIED 12/02/2016 HUMBERTO CHRISTIAN MD N Ot I10 ESSENTIAL (PRIMARY) HYPERTENSION 12/02/2016 HUMBERTO CHRISTIAN MD Ot 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 12/02/2016 HUMBERTO CHRISTIAN MD Ot E11.9 TYPE 2 DIABETES MELLITUS WITHOUT COMPLIC 12/02/2016 UHMBERTO CHRISTIAN MD Ot E53.8 DEFICIENCY OF OTHER SPECIFIED B GROUP 12/02/2016 HUMBERTO CHRISTIAN MD Ot E78.5 HYPERLIPIDEMIA, UNSPECIFIED 12/02/2016 HUMBERTO CHRISTIAN MD Ot I10 ESSENTIAL (PRIMARY) HYPERTENSION 12/02/2016 HUMBERTO CHRISTIAN MD Ot 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 12/08/2016 WIL CARREON [employer] PROGRAMMER Ot 724.5 BACKACHE NOS 12/08/2016 WIL CARREON PEOPLESO[employer] PROGRAMMER Ot 789.01 ABDOMINAL PAIN, RIGHT UPPER QUADRANT 12/08/2016 WIL CARREON [employer]OPLESO[employer] PROGRAMMER Ot 793.6 NOSP (ABN) FINDINGS ON RADIOLOGICAL OT 12/08/2016 WIL CARREON [employer]OP[employer] PROGRAMMER Ot 787.91 DIARRHEA 12/08/2016 WIL CARREON [employer]OPLESO[employer] PROGRAMMER Ot 789.06 ABDOMINAL PAIN, EPIGASTRIC 12/08/2016 JASON [...] RIGHT CAROTID 12/08/2016 BRENTON DORAN MD Ot K76 .0 FATTY (CHANGE OF) LIVER, NOT ELSEWHERE C 12/08/2016 BRENTON DORAN MD Ot R74 .0 NONSPEC ELEV OF LEVELS OF TRANSAMNS LA 12/08/2016 BRENTON DORAN MD Ot M54 .6 PAIN IN THORACIC SPINE 12/08/2016 BRENTON DORAN MD Ot R31 .9 HEMATURIA, UNSPECIFIED 12/08/2016 BRENTON DORAN MD Ot R74 .0 NONSPEC ELEV OF LEVELS OF TRANSAMNS LA [...] LG INT 12/08/2016 BRENTON DORAN MD Ot K76 .0 FATTY (CHANGE OF) LIVER, NOT ELSEWHERE C 12/08/2016 BRENTON DORAN MD Ot R74 .0 NONSPEC ELEV OF LEVELS OF TRANSAMNS LA 12/08/2016 BRENTON DORAN MD Ot M54 .6 PAIN IN THORACIC SPINE 12/08/2016 BRENTON DORAN MD Ot R31 .9 HEMATURIA, UNSPECIFIED 12/08/2016 BRENTON DORAN MD Ot R74 .0 NONSPEC ELEV OF LEVELS OF TRANSAMNS LA 12/08/2016 RONY REYES MD Ot H93.A9 PULSATILE TINNITUS, UNSPECIFIED EAR 12/08/2016 RONY REYES MD Ot 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 12/08/2016 BRENTON DORAN MD Ot G44.221 CHRONIC TENSION-TYPE HEADACHE, INTRACTAB 12/12/2016 TURNER RUIZ MD Ot E11. 9 TYPE 2 DIABETES MELLITUS WITHOUT COMPLIC 12/12/2016 [...] MARKET PLACE 12/12/2016 TURNER RUIZ MD Ot Y99. 8 OTHER EXTERNAL CAUSE STATUS 12/12/2016 TURNER RUIZ MD Ot Z79. 84 SENIOR LIVING (CURRENT) USE OF ORAL HYPOGLYC 12/12/2016 TURNER RUIZ MD Ot Z79.899 OTHER SENIOR LIVING (CURRENT) DRUG THERAPY 12/12/2016 TURNER RUIZ MD Ot Z96.651 PRESENCE OF RIGHT ARTIFICIAL KNEE JOINT 12/14/2016 TURNER RUIZ MD Ot E11. 9 TYPE 2 DIABETES MELLITUS WITHOUT COMPLIC 12/14/2016 [...] MARKET PLACE 12/14/2016 TURNER RUIZ MD Ot Y99. 8 OTHER EXTERNAL CAUSE STATUS 12/14/2016 TURNER RUIZ MD Ot Z79. 84 SENIOR LIVING (CURRENT) USE OF ORAL HYPOGLYC 12/14/2016 TURNER RUIZ MD Ot Z79.899 OTHER ORDER MANAGEMENT SPECIALIST (CURRENT) DRUG THERAPY 12/14/2016 TURNER RUIZ MD Ot Z96.651 PRESENCE OF RIGHT ARTIFICIAL KNEE JOINT 12/18/2016 TURNER RUIZ MD Ot E11. 9 TYPE 2 DIABETES MELLITUS WITHOUT COMPLIC 12/18/2016 [...] MARKET PLACE 12/18/2016 TURNER RUIZ MD Ot Y99. 8 OTHER EXTERNAL CAUSE STATUS 12/18/2016 TURNER RUIZ MD Ot Z79. 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 04/04/2017 MAYTE DICKERSON [employer]OPLESOFT PROGRAMMER Ot E11 .9 TYPE 2 DIABETES MELLITUS WITHOUT COMPLIC 04/04/2017 MAYTE DICKERSON APRN Ot E78.00 PURE HYPERCHOLESTEROLEMIA, UNSPECIFIED 04/04/2017 MAYTE DICKERSON APRN Ot F32 .9 MAJOR DEPRESSIVE DISORDER, SINGLE EPISOD 04/04/2017 MAYTE DICKERSON APRN Ot F41 .9 ANXIETY DISORDER, UNSPECIFIED 04/04/2017 MAYTE DICKERSON [employer] PROGRAMMER Ot I10 ESSENTIAL (PRIMARY) HYPERTENSION 04/04/2017 MAYTE DICKERSON APRN Ot M79.601 PAIN IN RIGHT ARM 04/04/2017 MAYTE DICKERSON APRN Ot S50.01XA CONTUSION OF RIGHT ELBOW, INITIAL ENCOUN 04/04/2017 MAYTE DICKERSON APRN Ot W01.0XXA FALL SAME LEV FROM SLIP/TRIP W/O STRIKE 04/04/2017 MAYTE DICKERSON APRN Ot Z79.84 ORDER MANAGEMENT SPECIALIST (CURRENT) USE OF ORAL HYPOGLYC 04/04/2017 MAYTE DICKERSON APRN Ot Z88 .0 ALLERGY STATUS TO PENICILLIN 04/04/2017 MAYTE DICKERSON APRN Ot Z88 .1 ALLERGY STATUS TO OTHER ANTIBIOTIC AGENT 04/04/2017 MAYTE DICKERSON APRN Ot Z88 .2 ALLERGY STATUS TO SULFONAMIDES STATUS 04/04/2017 MAYTE DICKERSON APRN Ot Z88 .6 ALLERGY STATUS TO ANALGESIC AGENT STATUS 04/04/2017 MAYTE DICKERSON APRN Ot Z88 .7 ALLERGY STATUS TO SERUM AND VACCINE STAT 04/04/2017 MAYTE DICKERSON APRN Ot Z88 .9 ALLERGY STATUS TO UNSP DRUG/MEDS/BIOL MERRITT 04/04/2017 MAYTE DICKERSON APRN Ot Z91.048 OTHER NONMEDICINAL SUBSTANCE ALLERGY STA 05/02/2017 BRENTON DORAN MD Ot M25.511 PAIN IN RIGHT SHOULDER 05/04/2017 BRENTON DORAN MD Ot M25.511 PAIN IN RIGHT SHOULDER 05/11/2017 RONY SAMANIEGO MD Ot M75.101 UNSP ROTATR-CUFF TEAR/RUPTR OF RIGHT IVIS 05/11/2017 RONY SAMANIEGO MD Ot Z01.818 ENCOUNTER FOR OTHER PREPROCEDURAL EXAMIN 05/11/2017 RONY SAMANIEGO MD Ot Z11.2 ENCOUNTER FOR SCREENING FOR OTHER BACTER 05/18/2017 ORNY SAMANIEGO MD Ot E05.90 THYROTOXICOSIS, UNSP WITHOUT THYROTOXIC 05/18/2017 RONY SAMANIEGO MD Ot E11.9 TYPE 2 DIABETES MELLITUS WITHOUT COMPLIC 05/18/2017 RONY SAMANIEGO MD Ot E78.00 PURE HYPERCHOLESTEROLEMIA, UNSPECIFIED 05/18/2017 RONY SAMANIEGO MD, Ot I1 0 ESSENTIAL (PRIMARY) HYPERTENSION 05/18/2017 RONY SAMANIEGO MD Ot S43.431A SUPERIOR GLENOID LABRUM LESION OF RIGHT 05/18/2017 RONY SAMANIEGO MD, Ot S46.011A STRAIN OF MUSC/TEND THE ROTATOR CUFF OF 05/18/2017 RONY SAMANIEGO MD Ot W19.XXXA UNSPECIFIED FALL, INITIAL ENCOUNTER 05/18/2017 RONY SAMANIEGO MD Ot Y99.8 OTHER EXTERNAL CAUSE STATUS 05/18/2017 RONY SAMANIEGO MD, Ot Z79.899 OTHER SENIOR LIVING (CURRENT) DRUG THERAPY 05/24/2017 RONY SAMANIEGO MD Ot E05.90 THYROTOXICOSIS, UNSP WITHOUT THYROTOXIC 05/24/2017 RONY SAMANIEGO MD Ot E11.9 TYPE 2 DIABETES MELLITUS WITHOUT COMPLIC 05/24/2017 RONY SAMANIEGO MD Ot E78.00 PURE HYPERCHOLESTEROLEMIA, UNSPECIFIED 05/24/2017 RONY SAMANIEGO MD Ot I1 0 ESSENTIAL (PRIMARY) HYPERTENSION 05/24/2017 RONY SAMANIEGO MD, Ot S43.431A SUPERIOR GLENOID LABRUM LESION OF RIGHT 05/24/2017 RONY SAMANIEGO MD Ot S46.011A STRAIN OF MUSC/TEND THE ROTATOR CUFF OF 05/24/2017 RONY SAMANIEGO MD Ot W19.XXXA UNSPECIFIED FALL, INITIAL ENCOUNTER 05/24/2017 RONY SAMANIEGO MD Ot Y99.8 OTHER EXTERNAL CAUSE STATUS 05/24/2017 RONY SAMANIEGO MD, Ot Z79.899 OTHER ORDER MANAGEMENT SPECIALIST (CURRENT) DRUG THERAPY 05/31/2017 WIL CARREON [employer] PROGRAMMER Ot 724.5 BACKACHE NOS 05/31/2017 WIL CARREON PEOPLESO[employer] PROGRAMMER Ot 789.01 ABDOMINAL PAIN, RIGHT UPPER QUADRANT 05/31/2017 WIL CARREON PEOPLES[employer] PROGRAMMER Ot 793.6 NOSP (ABN) FINDINGS ON RADIOLOGICAL OT 05/31/2017 WIL CARREON [employer]OPLESO[employer] PROGRAMMER Ot 787.91 DIARRHEA 05/31/2017 WIL CARREON [employer]OPLESO[employer] PROGRAMMER Ot 789.06 ABDOMINAL PAIN, EPIGASTRIC 05/31/2017 JASON [...] RIGHT CAROTID 05/31/2017 BRENTON DORAN MD Ot K76 .0 FATTY (CHANGE OF) LIVER, NOT ELSEWHERE C 05/31/2017 BRENTON DORAN MD Ot R74 .0 NONSPEC ELEV OF LEVELS OF TRANSAMNS LA 05/31/2017 BRENTON DORAN MD Ot M54 .6 PAIN IN THORACIC SPINE 05/31/2017 BRENTON DORAN MD Ot R31 .9 HEMATURIA, UNSPECIFIED 05/31/2017 BRENTON DORAN MD Ot R74 .0 NONSPEC ELEV OF LEVELS OF TRANSAMNS LA [...] PAIN IN RIGHT SHOULDER 06/01/2017 WIL CARREON [employer]OPLESO[employer] PROGRAMMER Ot 724.5 BACKACHE NOS 06/01/2017 WIL CARREON PEOPLES[employer] PROGRAMMER Ot 789.01 ABDOMINAL PAIN, RIGHT UPPER QUADRANT 06/01/2017 WIL CARREON PEOPLES[employer] PROGRAMMER Ot 793.6 NOSP (ABN) FINDINGS ON RADIOLOGICAL OT 06/01/2017 WIL CARREON PEOPLESO[employer] PROGRAMMER Ot 787.91 DIARRHEA 06/01/2017 WIL CARREON PEOPLESO[employer] PROGRAMMER Ot 789.06 ABDOMINAL PAIN, EPIGASTRIC 06/01/2017 JASON [...] RIGHT CAROTID 06/01/2017 BRENTON DORAN MD Ot K76 .0 FATTY (CHANGE OF) LIVER, NOT ELSEWHERE C 06/01/2017 BRENTON DORAN MD Ot R74 .0 NONSPEC ELEV OF LEVELS OF TRANSAMNS LA 06/01/2017 BRENTON DORAN MD Ot M54 .6 PAIN IN THORACIC SPINE 06/01/2017 BRENTON DORAN MD Ot R31 .9 HEMATURIA, UNSPECIFIED 06/01/2017 BRENTON DORAN MD Ot R74 .0 NONSPEC ELEV OF LEVELS OF TRANSAMNS LA [...] MAMMOGRAM FOR MALIGNANT NE 08/16/2017 WIL CARREON PEOPLESOFT PROGRAMMER Ot 724.5 BACKACHE NOS 08/16/2017 WIL CARREON PEOPLESO[employer] PROGRAMMER Ot 789.01 ABDOMINAL PAIN, RIGHT UPPER QUADRANT 08/16/2017 WIL CARREON PEOPLESO[employer] PROGRAMMER Ot 793.6 NOSP (ABN) FINDINGS ON RADIOLOGICAL OT 08/16/2017 WIL CARREON PEOPLES[employer] PROGRAMMER Ot 787.91 DIARRHEA 08/16/2017 WIL CARREON PEOPLESOFT PROGRAMMER Ot 789.06 ABDOMINAL PAIN, EPIGASTRIC 08/16/2017 JASON SOMERS, ULI Dennis Ot 553.1 UMBILICAL HERNIA 08/16/2017 JASON SOMERS, ULI Dennis Ot 564.00 UNSPEC CONSTIPATION 08/16/2017 RONY SAMANIEGO [...] RIGHT CAROTID 08/16/2017 BRENTON DORAN MD Ot K76 .0 FATTY (CHANGE OF) LIVER, NOT ELSEWHERE C 08/16/2017 BRENTON DORAN MD Ot R74 .0 NONSPEC ELEV OF LEVELS OF TRANSAMNS LA 08/16/2017 BRENTON DORAN MD Ot M54 .6 PAIN IN THORACIC SPINE 08/16/2017 BRENTON DORAN MD Ot R31 .9 HEMATURIA, UNSPECIFIED 08/16/2017 BRENTON DORAN MD Ot R74 .0 NONSPEC ELEV OF LEVELS OF TRANSAMNS LA 08/16/2017 HUMBERTO CHRISTIAN MD Ot E11.9 TYPE 2 DIABETES MELLITUS WITHOUT COMPLIC 08/16/2017 HUMBERTO CHRISTIAN MD Ot E53.8 DEFICIENCY OF OTHER SPECIFIED B GROUP 08/16/2017 HUMBERTO CHRISTIAN MD, Ot E78.5 HYPERLIPIDEMIA, UNSPECIFIED 08/16/2017 HUMBERTO CHRISTIAN [...] DORAN MD Ot R07.89 OTHER CHEST PAIN 03/20/2018 RONY SAMANIEGO MD Ot M89.9 DISORDER OF BONE, UNSPECIFIED 03/20/2018 RONY SAMANIEGO MD Ot Z01.812 ENCOUNTER FOR PREPROCEDURAL LABORATORY E 03/20/2018 RONY SAMANIEGO MD Ot Z11.2 ENCOUNTER FOR SCREENING FOR OTHER BACTER 03/22/2018 RONY SAMANIEGO MD Ot M89.9 DISORDER OF BONE, UNSPECIFIED 03/22/2018 RONY SAMANIEGO MD Ot Z01.812 ENCOUNTER FOR PREPROCEDURAL LABORATORY E 03/22/2018 RONY SAMANIEGO MD Ot Z11.2 ENCOUNTER FOR SCREENING FOR OTHER BACTER 03/22/2018 RONY SAMANIEGO MD Ot E05.90 THYROTOXICOSIS, UNSP WITHOUT THYROTOXIC 03/22/2018 RONY SAMANIEGO MD Ot E11.9 TYPE 2 DIABETES MELLITUS WITHOUT COMPLIC 03/22/2018 RONY SAMANIEGO MD Ot E66.01 MORBID (SEVERE) OBESITY DUE TO EXCESS CA 03/22/2018 RONY SAMANIEGO MD Ot E78.00 PURE HYPERCHOLESTEROLEMIA, UNSPECIFIED 03/22/2018 RONY SAMANIEGO MD, Ot E78.5 HYPERLIPIDEMIA, UNSPECIFIED 03/22/2018 RONY SAMANIEGO MD, Ot G47.33 OBSTRUCTIVE SLEEP APNEA (ADULT) (PEDIATR 03/22/2018 RONY SAMANIEGO MD Ot I1 0 ESSENTIAL (PRIMARY) HYPERTENSION 03/22/2018 RONY SAMANIEGO MD, Ot K50.90 CROHN'S DISEASE, UNSPECIFIED, WITHOUT CO 03/22/2018 RONY SAMANIEGO MD, Ot K74.60 UNSPECIFIED CIRRHOSIS OF LIVER 03/22/2018 RONY SAMANIEGO MD, Ot M77.31 CALCANEAL SPUR, RIGHT FOOT 03/22/2018 RONY SAMANIEGO MD, Ot Z68.43 BODY MASS INDEX (BMI) 50-59.9 , ADULT 03/22/2018 RONY SAMANIEGO MD, Ot Z79.84 ORDER MANAGEMENT SPECIALIST (CURRENT) USE OF ORAL HYPOGLYC 03/22/2018 RONY SAMANIEGO MD, Ot Z79.899 OTHER ORDER MANAGEMENT SPECIALIST (CURRENT) DRUG THERAPY 03/22/2018 RONY SAMANIEGO MD, Ot Z88.0 ALLERGY STATUS TO PENICILLIN 03/22/2018 RONY SAMANIEGO MD, Ot Z88.2 ALLERGY STATUS TO SULFONAMIDES STATUS 03/22/2018 RONY SAMANIEGO MD, Ot Z88.7 ALLERGY STATUS TO SERUM AND VACCINE STAT 03/22/2018 RONY SAMANIEGO MD, Ot Z96.651 PRESENCE OF RIGHT ARTIFICIAL KNEE JOINT 03/24/2018 RONY SAMANIEGO MD, Ot E05.90 THYROTOXICOSIS, UNSP WITHOUT THYROTOXIC 03/24/2018 RONY SAMANIEOG MD Ot E11.9 TYPE 2 DIABETES MELLITUS WITHOUT COMPLIC 03/24/2018 RONY SAMANIEGO MD Ot E66.01 MORBID (SEVERE) OBESITY DUE TO EXCESS CA 03/24/2018 RONY SAMANIEGO MD, Ot E78.00 PURE HYPERCHOLESTEROLEMIA, UNSPECIFIED 03/24/2018 RONY SAMANIEGO MD, Ot E78.5 HYPERLIPIDEMIA, UNSPECIFIED 03/24/2018 RONY SAMANIEGO MD, Ot G47.33 OBSTRUCTIVE SLEEP APNEA (ADULT) (PEDIATR 03/24/2018 RONY SAMANIEGO MD Ot I1 0 ESSENTIAL (PRIMARY) HYPERTENSION 03/24/2018 RONY SAMANIEGO MD, Ot K50.90 CROHN'S DISEASE, UNSPECIFIED, WITHOUT CO 03/24/2018 RONY SAMANIEGO MD, Ot K74.60 UNSPECIFIED CIRRHOSIS OF LIVER 03/24/2018 RONY SAMANIEGO MD, Ot M77.31 CALCANEAL SPUR, RIGHT FOOT 03/24/2018 RONY SAMANIEGO MD, Ot Z68.43 BODY MASS INDEX (BMI) 50-59.9 , ADULT 03/24/2018 RONY SAMANIEGO MD, Ot Z79.84 ORDER MANAGEMENT SPECIALIST (CURRENT) USE OF ORAL HYPOGLYC 03/24/2018 RONY SAMANIEGO MD, Ot Z79.899 OTHER ORDER MANAGEMENT SPECIALIST (CURRENT) DRUG THERAPY 03/24/2018 RONY SAMANIEGO MD, Ot Z88.0 ALLERGY STATUS TO PENICILLIN 03/24/2018 RONY SAMANIEGO MD, Ot Z88.2 ALLERGY STATUS TO SULFONAMIDES STATUS 03/24/2018 RONY SAMANIEGO MD, Ot Z88.7 ALLERGY STATUS TO SERUM AND VACCINE STAT 03/24/2018 RONY SAMANIEGO MD, Ot Z96.651 PRESENCE OF RIGHT ARTIFICIAL KNEE JOINT 04/15/2018 GUILLE PEREZ MD Ot E11. 9 TYPE 2 DIABETES MELLITUS WITHOUT COMPLIC 04/15/2018 GUILLE PEREZ MD Ot E78. 00 PURE HYPERCHOLESTEROLEMIA, UNSPECIFIED 04/15/2018 GUILLE PEREZ MD Ot F32. 9 MAJOR DEPRESSIVE DISORDER, SINGLE EPISOD 04/15/2018 GUILLE PEREZ MD Ot F41. 9 ANXIETY DISORDER, UNSPECIFIED 04/15/2018 GUILLE PEREZ MD Ot G47. 30 SLEEP APNEA, UNSPECIFIED 04/15/2018 GUILLE PEREZ MD Ot I10 ESSENTIAL (PRIMARY) HYPERTENSION 04/15/2018 GUILLE PEREZ MD Ot L03.115 CELLULITIS OF RIGHT LOWER LIMB 04/15/2018 GUILLE PEREZ MD Ot M79. 89 OTHER SPECIFIED SOFT TISSUE DISORDERS 04/15/2018 GUILLE PEREZ MD Ot T81.89XA OTH COMPLICATIONS OF PROCEDURES, NEC, IN 04/15/2018 GUILLE PEREZ MD Ot Z79. 84 ORDER MANAGEMENT SPECIALIST (CURRENT) USE OF ORAL HYPOGLYC 04/15/2018 GUILLE PEREZ MD Ot Z87. 19 PERSONAL HISTORY OF OTHER DISEASES OF TH 04/15/2018 GUILLE PEREZ MD Ot Z88. 0 ALLERGY STATUS TO PENICILLIN 04/15/2018 GUILLE PEREZ MD Ot Z88. 2 ALLERGY STATUS TO SULFONAMIDES STATUS 04/15/2018 GUILLE PEREZ MD Ot Z88. 5 ALLERGY STATUS TO NARCOTIC AGENT STATUS 04/15/2018 GUILLE PEREZ MD Ot Z88. 7 ALLERGY STATUS TO SERUM AND VACCINE STAT 04/15/2018 GUILLE PEREZ MD Ot Z88. 8 ALLERGY STATUS TO OTH DRUG/MEDS/BIOL SUB 04/15/2018 GUILLE PEREZ MD Ot Z90. 49 ACQUIRED ABSENCE OF OTHER SPECIFIED PART 04/15/2018 GUILLE PEREZ MD Ot Z90.710 ACQUIRED ABSENCE OF BOTH CERVIX AND UTER 04/15/2018 GUILLE PEREZ MD Ot Z91.048 OTHER NONMEDICINAL SUBSTANCE ALLERGY STA 04/17/2018 GUILLE PEREZ MD Ot E11. 9 TYPE 2 DIABETES MELLITUS WITHOUT COMPLIC 04/17/2018 GUILLE PEREZ MD Ot E78. 00 PURE HYPERCHOLESTEROLEMIA, UNSPECIFIED 04/17/2018 GUILLE PEREZ MD Ot F32. 9 MAJOR DEPRESSIVE DISORDER, SINGLE EPISOD 04/17/2018 GUILLE PEREZ MD Ot F41. 9 ANXIETY DISORDER, UNSPECIFIED 04/17/2018 GUILLE PEREZ MD Ot G47. 30 SLEEP APNEA, UNSPECIFIED 04/17/2018 GUILLE PEREZ MD Ot I10 ESSENTIAL (PRIMARY) HYPERTENSION 04/17/2018 GUILLE PEREZ MD Ot L03.115 CELLULITIS OF RIGHT LOWER LIMB 04/17/2018 GUILLE PEREZ MD Ot M79. 89 OTHER SPECIFIED SOFT TISSUE DISORDERS 04/17/2018 GUILLE PEREZ MD Ot T81.89XA OT COMPLICATIONS OF PROCEDURES, NEC, IN 04/17/2018 GUILLE PEREZ MD Ot Z79. 84 ORDER MANAGEMENT SPECIALIST (CURRENT) USE OF ORAL HYPOGLYC 04/17/2018 GUILLE PEREZ MD Ot Z87. 19 PERSONAL HISTORY OF OTHER DISEASES OF TH 04/17/2018 GUILLE PEREZ MD Ot Z88. 0 ALLERGY STATUS TO PENICILLIN 04/17/2018 GUILLE PEREZ MD Ot Z88. 2 ALLERGY STATUS TO SULFONAMIDES STATUS 04/17/2018 GUILLE PEREZ MD Ot Z88. 5 ALLERGY STATUS TO NARCOTIC AGENT STATUS 04/17/2018 GUILLE PEREZ MD Ot Z88. 7 ALLERGY STATUS TO SERUM AND VACCINE STAT 04/17/2018 GUILLE PEREZ MD, Ot Z88. 8 ALLERGY STATUS TO OTH DRUG/MEDS/BIOL SUB 04/17/2018 GUILLE PEREZ MD, Ot Z90. 49 ACQUIRED ABSENCE OF OTHER SPECIFIED PART 04/17/2018 GUILLE PEREZ MD Ot Z90.710 ACQUIRED ABSENCE OF BOTH CERVIX AND UTER 04/17/2018 GUILLE PEREZ MD Ot Z91.048 OTHER NONMEDICINAL SUBSTANCE ALLERGY STA 08/29/2018 WIL CARREON [employer] PROGRAMMER Ot 724.5 BACKACHE NOS 08/29/2018 WIL CARREON [employer] PROGRAMMER Ot 789.01 ABDOMINAL PAIN, RIGHT UPPER QUADRANT 08/29/2018 WIL CARREON [employer] PROGRAMMER Ot 793.6 NOSP (ABN) FINDINGS ON RADIOLOGICAL OT 08/29/2018 WIL CARREON [employer]LES[employer] PROGRAMMER Ot 787.91 DIARRHEA 08/29/2018 WIL CARREON PEOPLESOFT PROGRAMMER Ot 789.06 ABDOMINAL PAIN, EPIGASTRIC 08/29/2018 JASON SOMERS, ULI Dennis Ot 553.1 UMBILICAL HERNIA 08/29/2018 ULI GOMEZ MD Ot 564.00 UNSPEC CONSTIPATION 08/29/2018 RONY SAMANIEGO MD Ot G56.02 CARPAL TUNNEL SYNDROME, LEFT UPPER LIMB 08/29/2018 RONY SAMANIEGO MD Ot Z01.818 ENCOUNTER FOR OTHER PREPROCEDURAL EXAMIN 08/29/2018 RONY SAMANIEGO MD Ot Z11.2 ENCOUNTER FOR SCREENING FOR OTHER BACTER 08/29/2018 BRENTON DORAN MD Ot G44.221 CHRONIC TENSION-TYPE HEADACHE, INTRACTAB 08/29/2018 RONY REYES MD Ot H93.A9 PULSATILE TINNITUS, UNSPECIFIED EAR 08/29/2018 RONY REYES MD Ot 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 08/29/2018 BRENTON DORAN MD Ot K76 .0 FATTY (CHANGE OF) LIVER, NOT ELSEWHERE C 08/29/2018 BRENTON DORAN MD Ot R74 .0 NONSPEC ELEV OF LEVELS OF TRANSAMNS LA 08/29/2018 BRENTON DORAN MD Ot M54 .6 PAIN IN THORACIC SPINE 08/29/2018 BRENTON DORAN MD Ot R31 .9 HEMATURIA, UNSPECIFIED 08/29/2018 BRENTON DORAN MD Ot R74 .0 NONSPEC ELEV OF LEVELS OF TRANSAMNS LA 08/29/2018 HUMBERTO CHRISTIAN MD Ot E11.9 TYPE 2 DIABETES MELLITUS WITHOUT COMPLIC 08/29/2018 HUMBERTO CHRISTIAN MD Ot E53.8 DEFICIENCY OF OTHER SPECIFIED B GROUP 08/29/2018 HUMBERTO CHRISTIAN MD Ot E78.5 HYPERLIPIDEMIA, UNSPECIFIED 08/29/2018 HUMBERTO CHRISTIAN MD Ot I10 ESSENTIAL (PRIMARY) HYPERTENSION 08/29/2018 HUMBERTO CHRISTIAN MD Ot 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 08/29/2018 BRENTON DORAN MD Ot R07.89 OTHER CHEST PAIN 08/29/2018 BRENTON DORAN MD Ot M25.511 PAIN IN RIGHT SHOULDER 08/29/2018 BRENTON DORAN MD Ot Z12.31 ENCNTR SCREEN MAMMOGRAM FOR MALIGNANT NE 11/13/2018 WIL CARREON [employer]LESOFT PROGRAMMER Ot 724.5 BACKACHE NOS 11/13/2018 WIL CARREON PEOPLESOFT PROGRAMMER Ot 789.01 ABDOMINAL PAIN, RIGHT UPPER QUADRANT 11/13/2018 WIL CARREON PEOPLESOFT PROGRAMMER Ot 793.6 NOSP (ABN) FINDINGS ON RADIOLOGICAL OT 11/13/2018 WIL CARREON PEOPLESOFT PROGRAMMER Ot 787.91 DIARRHEA 11/13/2018 WIL CARREON PEOPLESOFT PROGRAMMER Ot 789.06 ABDOMINAL PAIN, EPIGASTRIC 11/13/2018 ULI GOMEZ MD Ot 553.1 UMBILICAL HERNIA 11/13/2018 ULI GOMEZ MD Ot 564.00 UNSPEC CONSTIPATION 11/13/2018 RONY SAMANIEGO MD Ot G56.02 CARPAL TUNNEL SYNDROME, LEFT UPPER LIMB 11/13/2018 RONY SAMANIEGO MD Ot Z01.818 ENCOUNTER FOR OTHER PREPROCEDURAL EXAMIN 11/13/2018 RONY SAMANIEGO MD Ot Z11.2 ENCOUNTER FOR SCREENING FOR OTHER BACTER 11/13/2018 BRENTON DORAN MD Ot G44.221 CHRONIC TENSION-TYPE HEADACHE, INTRACTAB 11/13/2018 RONY REYES MD Ot H93.A9 PULSATILE TINNITUS, UNSPECIFIED EAR 11/13/2018 RONY REYES MD Ot 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 11/13/2018 BRENTON DORAN MD Ot K76 .0 FATTY (CHANGE OF) LIVER, NOT ELSEWHERE C 11/13/2018 BRENTON DORAN MD Ot R74 .0 NONSPEC ELEV OF LEVELS OF TRANSAMNS LA 11/13/2018 BRENTON DORAN MD Ot M54 .6 PAIN IN THORACIC SPINE 11/13/2018 BRENTON DORAN MD Ot R31 .9 HEMATURIA, UNSPECIFIED 11/13/2018 BRENTON DORAN MD Ot R74 .0 NONSPEC ELEV OF LEVELS OF TRANSAMNS LA 11/13/2018 HUMBERTO CHRISTIAN MD Ot E11.9 TYPE 2 DIABETES MELLITUS WITHOUT COMPLIC 11/13/2018 HUMBERTO CHRISTIAN MD Ot E53.8 DEFICIENCY OF OTHER SPECIFIED B GROUP 11/13/2018 HUMBERTO CHRISTIAN MD Ot E78.5 HYPERLIPIDEMIA, UNSPECIFIED 11/13/2018 HUMBERTO CHRISTIAN MD Ot I10 ESSENTIAL (PRIMARY) HYPERTENSION 11/13/2018 HUMBERTO CHRISTIAN MD Ot 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 11/13/2018 BRENTON DORAN MD Ot R07.89 OTHER CHEST PAIN 11/13/2018 BRENTON DORAN MD Ot M25.511 PAIN IN RIGHT SHOULDER 11/13/2018 BRENTON DORNA MD Ot Z12.31 ENCNTR SCREEN MAMMOGRAM FOR MALIGNANT NE 12/29/2018 BRENTON DORAN MD Ot R00 .2 PALPITATIONS 01/08/2019 BRENTON DORAN MD Ot I34 .0 NONRHEUMATIC MITRAL (VALVE) INSUFFICIENC 01/08/2019 BRENTON DORAN MD Ot R00 .8 OTHER ABNORMALITIES OF HEART BEAT 01/22/2019 BRENTON DORAN MD Ot I34 .0 NONRHEUMATIC MITRAL (VALVE) INSUFFICIENC 01/22/2019 BRENTON DORAN MD Ot R00 .8 OTHER ABNORMALITIES OF HEART BEAT 01/22/2019 BRENTON DORAN MD Ot R00 .2 PALPITATIONS 01/29/2019 BRENTON DORAN MD Ot I34 .0 NONRHEUMATIC MITRAL (VALVE) INSUFFICIENC 01/29/2019 BRENTON DORAN MD Ot R00 .8 OTHER ABNORMALITIES OF HEART BEAT 02/06/2019 BRENTON DORAN MD Ot I34 .0 NONRHEUMATIC MITRAL (VALVE) INSUFFICIENC 02/06/2019 BRENTON DORAN MD Ot R00 .8 OTHER ABNORMALITIES OF HEART BEAT 02/11/2019 BRENTON DORAN MD Ot R00 .2 PALPITATIONS 02/12/2019 BRENTON DORAN MD Ot R00 .2 PALPITATIONS 02/20/2019 STEPHANIA SOMERS FACC, CHARLINE FACP CCDS Ot E11.9 TYPE 2 DIABETES MELLITUS WITHOUT COMPLIC 02/20/2019 STEPHANIA SOMERS FACC, CHARLINE FACP CCDS Ot E66.01 MORBID (SEVERE) OBESITY DUE TO EXCESS CA 02/20/2019 STEPHANIA SOMERS FACC, ALI FACP CCDS Ot G47.33 OBSTRUCTIVE SLEEP APNEA (ADULT) (PEDIATR 02/20/2019 STEPHANIA SOMERS FACC, CHARLINE FACP CCDS Ot G89.29 OTHER CHRONIC PAIN 02/20/2019 STEPHANIA SOMERS FACC, CHARLINE FACP CCDS Ot I10 ESSENTIAL (PRIMARY) HYPERTENSION 02/20/2019 STEPHANIA SOMERS FACC, CHARLINE FACP CCDS Ot I34.0 NONRHEUMATIC MITRAL (VALVE) INSUFFICIENC 02/20/2019 STEPHANIA SOMERS FACC, ALI FACP CCDS Ot K74.60 UNSPECIFIED CIRRHOSIS OF LIVER 02/20/2019 STEPHANIA SOMERS FACC, CHARLINE FACP CCDS Ot M54.5 LOW BACK PAIN 02/20/2019 STEPHANIA SOMERS FACC, CHARLINE FACP CCDS Ot R00.2 PALPITATIONS 02/20/2019 STEPHANIA SOMERS FACC, ALI FACP CCDS Ot R07.89 OTHER CHEST PAIN 02/20/2019 STEPHANIA SOMERS FACC, ALI FACP CCDS Ot Z68.43 BODY MASS INDEX (BMI) 50-59.9, ADULT 02/20/2019 STEPHANIA SOMERS FACC, ALI FACP CCDS Ot Z79.82 SENIOR LIVING (CURRENT) USE OF ASPIRIN 02/20/2019 STEPHANIA SOMERS FACC ALI FACP CCDS Ot Z79.899 OTHER ORDER MANAGEMENT SPECIALIST (CURRENT) DRUG THERAPY 02/20/2019 STEPHANIA SOMERS FACC, ALI FACP CCDS Ot Z82.49 FAMILY HX OF ISCHEM HEART DIS AND OTH DI 02/27/2019 STEPHANIA SOMERS FACC, ALI FACP CCDS Ot E11.9 TYPE 2 DIABETES MELLITUS WITHOUT COMPLIC 02/27/2019 STEPHANIA SOMERS FACC, ALI FACP CCDS Ot E66.01 MORBID (SEVERE) OBESITY DUE TO EXCESS CA 02/27/2019 STEPHANIA SOMERS FACC, ALI FACP CCDS Ot G47.33 OBSTRUCTIVE SLEEP APNEA (ADULT) (PEDIATR 02/27/2019 STEPHANIA SOMERS FACC, ALI FACP CCDS Ot G89.29 OTHER CHRONIC PAIN 02/27/2019 STEPHANIA SOMERS FACC, ALI FACP CCDS Ot I10 ESSENTIAL (PRIMARY) HYPERTENSION 02/27/2019 STEPHANIA SOMERS FACC, ALI FACP CCDS Ot I34.0 NONRHEUMATIC MITRAL (VALVE) INSUFFICIENC 02/27/2019 STEPHANIA SOMERS FACC, ALI FACP CCDS Ot K74.60 UNSPECIFIED CIRRHOSIS OF LIVER 02/27/2019 STEPHANIA SOMERS FACC, ALI FACP CCDS Ot M54.5 LOW BACK PAIN 02/27/2019 STEPHANIA SOMERS FACC, CHARLINE FACP CCDS Ot R00.2 PALPITATIONS 02/27/2019 STEPHANIA SOMERS FACC, ALI FACP CCDS Ot R07.89 OTHER CHEST PAIN 02/27/2019 STEPHANIA SOMERS FACC, ALI FACP CCDS Ot Z68.43 BODY MASS INDEX (BMI) 50-59.9, ADULT 02/27/2019 STEPHANIA SOMERS FACC, ALI FACP CCDS Ot Z79.82 SENIOR LIVING (CURRENT) USE OF ASPIRIN 02/27/2019 STEPHANIA SOMERS FACC, ALI FACP CCDS Ot Z79.899 OTHER ORDER MANAGEMENT SPECIALIST (CURRENT) DRUG THERAPY 02/27/2019 STEPHANIA SOMERS FACC, ALI FACP CCDS Ot Z82.49 FAMILY HX OF ISCHEM HEART DIS AND OTH DI 03/01/2019 STEPHANIA SOMERS FACC, ALI FACP CCDS Ot E11.9 TYPE 2 DIABETES MELLITUS WITHOUT COMPLIC 03/01/2019 STEPHANIA SOMERS FACC, ALI FACP CCDS Ot E66.01 MORBID (SEVERE) OBESITY DUE TO EXCESS CA 03/01/2019 STEPHANIA SOMERS FACC, ALI FACP CCDS Ot G47.33 OBSTRUCTIVE SLEEP APNEA (ADULT) (PEDIATR 03/01/2019 STEPHANIA SOMERS FACC, CHARLINE FACP CCDS Ot G89.29 OTHER CHRONIC PAIN 03/01/2019 STEPHANIA SOMERS FACC, ALI FACP CCDS Ot I10 ESSENTIAL (PRIMARY) HYPERTENSION 03/01/2019 STEPHANIA SOMERS FACC, ALI FACP CCDS Ot I34.0 NONRHEUMATIC MITRAL (VALVE) INSUFFICIENC 03/01/2019 STEPHANIA SOMERS FACC, ALI FACP CCDS Ot K74.60 UNSPECIFIED CIRRHOSIS OF LIVER 03/01/2019 STEPHANIA SOMERS FACC, ALI FACP CCDS Ot M54.5 LOW BACK PAIN 03/01/2019 STEPHANIA SOMERS FACC, ALI FACP CCDS Ot R00.2 PALPITATIONS 03/01/2019 STEPHANIA SOMERS FACC, ALI FACP CCDS Ot R07.89 OTHER CHEST PAIN 03/01/2019 STEPHANIA SOMERS FACC, ALI FACP CCDS Ot Z68.43 BODY MASS INDEX (BMI) 50-59.9, ADULT 03/01/2019 STEPHANAI SOMERS FACC, ALI FACP CCDS Ot Z79.82 SENIOR LIVING (CURRENT) USE OF ASPIRIN 03/01/2019 STEPHANIA SOMERS FACC, ALI FACP CCDS Ot Z79.899 OTHER ORDER MANAGEMENT SPECIALIST (CURRENT) DRUG THERAPY 03/01/2019 STEPHANIA SOMERS FACC, ALI FACP CCDS Ot Z82.49 FAMILY HX OF ISCHEM HEART DIS AND OTH DI 10/17/2019 RONY SAMANIEGO MD Ot Z01.818 ENCOUNTER FOR OTHER PREPROCEDURAL EXAMIN 10/23/2019 RONY SAMANIEGO MD, Ot Z01.818 ENCOUNTER FOR OTHER PREPROCEDURAL EXAMIN 10/24/2019 RONY SAMANIEGO MD Ot D50.9 IRON DEFICIENCY ANEMIA, UNSPECIFIED 10/24/2019 RONY SAMANIEGO MD Ot E03.9 HYPOTHYROIDISM, UNSPECIFIED 10/24/2019 RONY SAMANIEGO MD Ot E11.9 TYPE 2 DIABETES MELLITUS WITHOUT COMPLIC 10/24/2019 RONY SAMANIEGO MD Ot E66.01 MORBID (SEVERE) OBESITY DUE TO EXCESS CA 10/24/2019 RONY SAMANIEGO MD Ot E78.00 PURE HYPERCHOLESTEROLEMIA, UNSPECIFIED 10/24/2019 RONY SAMANIEGO MD, Ot F32.9 MAJOR DEPRESSIVE DISORDER, SINGLE EPISOD 10/24/2019 RONY SAMANIEGO MD, Ot F41.9 ANXIETY DISORDER, UNSPECIFIED 10/24/2019 RONY SAMANIEGO MD, Ot G44.209 TENSION-TYPE HEADACHE, UNSPECIFIED, NOT 10/24/2019 RONY SAMANIEGO MD, Ot G47.33 OBSTRUCTIVE SLEEP APNEA (ADULT) (PEDIATR 10/24/2019 RONY SAMANIEGO MD, Ot I1 0 ESSENTIAL (PRIMARY) HYPERTENSION 10/24/2019 RONY SAMANIEGO MD, Ot J30.89 OTHER ALLERGIC RHINITIS 10/24/2019 RONY SAMANIEGO MD, Ot 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 10/24/2019 RONY SAMANIEGO MD, Ot M19.90 UNSPECIFIED OSTEOARTHRITIS, UNSPECIFIED 10/24/2019 RONY SAMANIEGO MD, Ot T84.82XS FIBROSIS DUE TO INTERNAL ORTHOPEDIC PROS 10/24/2019 RONY SAMANIEGO MD, Ot Z68.43 BODY MASS INDEX (BMI) 50.0-59.9, ADULT 10/24/2019 RONY SAMANIEGO MD, Ot Z79.899 OTHER ORDER MANAGEMENT SPECIALIST (CURRENT) DRUG THERAPY 10/24/2019 RONY SAMANIEGO MD, Ot Z82.49 FAMILY HX OF ISCHEM HEART DIS AND OTH DI 10/24/2019 RONY SAMANIEGO MD, Ot Z88.0 ALLERGY STATUS TO PENICILLIN 10/24/2019 RONY SAMANIEGO MD, Ot Z88.1 ALLERGY STATUS TO OTHER ANTIBIOTIC AGENT 10/24/2019 RONY SAMANIEGO MD, Ot Z88.5 ALLERGY STATUS TO NARCOTIC AGENT STATUS 10/24/2019 RONY SAMANIEGO MD, Ot Z88.7 ALLERGY STATUS TO SERUM AND VACCINE STAT 10/24/2019 RONY SAMANIEGO MD, Ot Z88.8 ALLERGY STATUS TO OTH DRUG/MEDS/BIOL SUB 10/24/2019 RONY SAMANIEGO MD, Ot Z90.49 ACQUIRED ABSENCE OF OTHER SPECIFIED PART 10/24/2019 RONY SAMANIEGO MD, Ot Z90.710 ACQUIRED ABSENCE OF BOTH CERVIX AND UTER 10/24/2019 RONY SAMANIEGO MD, Ot Z91.048 OTHER NONMEDICINAL SUBSTANCE ALLERGY STA 10/26/2019 RONY SAMANIEGO MD, Ot D50.9 IRON DEFICIENCY ANEMIA, UNSPECIFIED 10/26/2019 ZAFUTA MD, RONY P Ot E03.9 HYPOTHYROIDISM, UNSPECIFIED 10/26/2019 ADEN SOMERS, RONY Sykes Ot E11.9 TYPE 2 DIABETES MELLITUS WITHOUT COMPLIC 10/26/2019 RNOY SAMANIEGO MD Ot E66.01 MORBID (SEVERE) OBESITY DUE TO EXCESS CA 10/26/2019 RONY SAMANIEGO MD Ot E78.00 PURE HYPERCHOLESTEROLEMIA, UNSPECIFIED 10/26/2019 RONY SAMANIEGO MD Ot F32.9 MAJOR DEPRESSIVE DISORDER, SINGLE EPISOD 10/26/2019 RNOY SAMANIEGO MD Ot F41.9 ANXIETY DISORDER, UNSPECIFIED 10/26/2019 RONY SAMANIEGO MD Ot G44.209 TENSION-TYPE HEADACHE, UNSPECIFIED, NOT 10/26/2019 RONY SAMANIEGO MD Ot G47.33 OBSTRUCTIVE SLEEP APNEA (ADULT) (PEDIATR 10/26/2019 RONY SAMANIEGO MD Ot I1 0 ESSENTIAL (PRIMARY) HYPERTENSION 10/26/2019 RONY SAMANIEGO MD Ot J30.89 OTHER ALLERGIC RHINITIS 10/26/2019 RONY SAMANIEGO MD Ot 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 10/26/2019 RONY SAMANIEGO MD Ot M19.90 UNSPECIFIED OSTEOARTHRITIS, UNSPECIFIED 10/26/2019 RONY SAMANIEGO MD Ot T84.82XS FIBROSIS DUE TO INTERNAL ORTHOPEDIC PROS 10/26/2019 RONY SAMANIEGO MD Ot Z68.43 BODY MASS INDEX (BMI) 50.0-59.9, ADULT 10/26/2019 RONY SAMANIEGO MD Ot Z79.899 OTHER SENIOR LIVING (CURRENT) DRUG THERAPY 10/26/2019 RONY SAMANIEGO MD Ot Z82.49 FAMILY HX OF ISCHEM HEART DIS AND OTH DI 10/26/2019 RONY SAMANIEGO MD Ot Z88.0 ALLERGY STATUS TO PENICILLIN 10/26/2019 RONY SAMANIEGO MD Ot Z88.1 ALLERGY STATUS TO OTHER ANTIBIOTIC AGENT 10/26/2019 RONY SAMANIEGO MD Ot Z88.5 ALLERGY STATUS TO NARCOTIC AGENT STATUS 10/26/2019 RONY SAMANIEGO MD Ot Z88.7 ALLERGY STATUS TO SERUM AND VACCINE STAT 10/26/2019 RONY SAMANIEGO MD Ot Z88.8 ALLERGY STATUS TO OTH DRUG/MEDS/BIOL SUB 10/26/2019 RONY SAMANIEGO MD, Ot Z90.49 ACQUIRED ABSENCE OF OTHER SPECIFIED PART 10/26/2019 RONY SAMANIEGO MD, Ot Z90.710 ACQUIRED ABSENCE OF BOTH CERVIX AND UTER 10/26/2019 RONY SAMANIEGO MD, Ot Z91.048 OTHER NONMEDICINAL SUBSTANCE ALLERGY STA Procedures Code [place] [address] ROUT INE VENIPUNCTURE 08/24/2013 89741 CBC 08/24/2013 [id number] GF R CALC (RESULT ONLY) 08/24/2013 08855 CMP 08/24/2013 85996 LIPI D PANEL 08/24/2013 24299 TSH 08/24/2013 77586 OCCU LT BLOOD (FECES) 09/04/2013 98351 ROUT INE VENIPUNCTURE 12/06/2013 35148 CBC 12/07/2013 65854 A1C (IN-HOUSE) 01/17/2014 44959 MICR O ALBUMIN-IN HOUSE 01/17/[address] A BDOMEN W/ AND W/O CONTRAST 01/30/2014 35788 CMP 01/30/2014 27206 LIPASE 01/30/2014 68698 CBC 01/30/2014 69379 H PY CHAR (RML) 02/01/2014 09094 ROUT INE VENIPUNCTURE 03/19/2014 23226 CBC 03/19/2014 21394 XRAY KNEE RIGHT 1 OR 2 VIEWS 05/02/2014 02232 ROUT INE VENIPUNCTURE 05/22/2014 52495 A1C (IN-HOUSE) 05/22/2014 71920 UA L CALEB DIP 05/22/2014 35169 CBC 05/22/2014 38912 MICR OALBUMIN 05/22/2014 25486 TSH 05/22/2014 39043 ROUT INE VENIPUNCTURE 06/18/2014 14279 CBC 06/18/2014 21489 LIPASE 06/18/2014 39394 PSYC H DIAGNOSTIC EVALUATION 06/28/2014 2000F BLOO D PRESSURE CHECK 07/03/2014 66276 PSYT X PT&/FAMILY 45 MINUTES 08/15/2014 33931 ROUT INE VENIPUNCTURE 08/22/2014 52169 A1C (IN-HOUSE) 08/22/2014 18614 CBC 08/22/2014 [id number] GF R CALC (RESULT ONLY) 08/22/2014 21930 CMP 08/22/2014 99592 LIPASE 08/22/2014 12292 CULT URE STOOL 08/26/2014 09873 CLOS TRIDIUM (C-DIFF) 08/26/[address] A BDOMEN & PELVIS W/ & W/O CONTRAST 08/30/2014 Results Test Result Range CBC With Differential/Platelet - 6 10:00 WBC 5.4 x10E3/uL 3.4-10.8 RBC 4.53 x10E6/uL 3.77-5.28 Hemoglobin 13.6 g/dL 11.1-15.9 Hematocrit 41.2 % 34.0-46.6 MCV 91 fL 79-97 MCH 30.0 pg 26.6-33.0 MCHC 33.0 g/dL 31.5-35.7 RDW 13.0 % 12.3-15.4 Platelets 190 x10E3/uL 150-379 Neutrophils 63 % Lymphs 24 % Monocytes 7 % Eos 5 % Basos 1 % Neutrophils (Absolute) 3.4 x10E3/uL 1.4- 7.0 Lymphs (Absolute) 1.3 x10E3/uL 0.7-3.1 Monocytes(Absolute) 0.4 x10E3/uL 0.1-0.9 Eos (Absolute) 0.3 x10E3/uL 0.0-0.4 Baso (Absolute) 0.0 x10E3/uL 0.0-0.2 Immature Granulocytes 0 % Immature Grans (Abs) 0.0 x10E3/uL 0.0-0. 1 Comp. Metabolic Panel (14) - 07/23/16 10 :00 Glucose, Serum 161 mg/dL 65-99 BUN 10 mg/dL 8-27 Creatinine, Serum 0.66 mg/dL 0.57-1.00 eGFR If NonAfricn Am 95 mL/min/1.73 >59 eGFR If Africn Am 109 mL/min/1.73 >5 9 BUN/Creatinine Ratio 15 11-26 Sodium, Serum 138 [...] 107 mmol/L 98-107 Carbon dioxide 25 mmol/L 21-32 Serum or plasma anion gap determination (moles/volume) 8 mmol/L 5-14 Serum or plasma urea nitrogen measurement (mass/volume ) 10 mg/dL 7-18 Serum or plasma creatinine measurement (mass/volume) 0.75 mg/dL 0.60-1.30 Serum or plasma urea nitrogen/creatinine mass ratio 13 NRG Serum or plasma creatinine measurement w ith calculation of estimated glomerular filtration rate > NRG Serum or plasma glucose measurement (mass/volume) 275 mg/dL 70-105 Serum or plasma calcium measurement (mass/volume) 9.4 mg/dL 8.5-10.1 Serum or plasma total bilirubin measurement (mass/volu me) 0.5 mg/dL 0.1-1.0 Serum or plasma alkaline phosphatase beth surement (enzymatic activity/volume) 85 U/L 40-136 Serum or plasma aspartate aminotransfera se measurement (enzymatic activity/volume) 80 U/L 5-34 Serum or plasma alanine aminotransferase measurement (enzymatic activity/volume) 54 U/L 0-55 Serum or plasma protein measurement (mass/volume) 6.6 g/dL 6.4-8.2 Serum or plasma albumin measurement (mass/volume) 3.8 g/dL 3.2-4.5 Acute hepatitis panel - 07/30/16 13:07 Confirmatory quantitative serum or plasm a hepatitis B virus surface antigen measurement Non-Reactive Non-Reactive Hepatitis A virus IgM antibody assay Non-Reactive Non- Reactive Hepatitis B virus core IgM antibody assay Non-Reac tive Non- Reactive Serum hepatitis C virus antibody detection Non-Newcomb ctive Non-Reactive Automated blood complete blood count (he mogram) panel - 12/01/16 17:17 Blood leukocytes automated count (number/volume) 6.7 10*3/uL 4.3-11.0 Blood erythrocytes automated count (number/volume) 4.23 10*6/uL 4.35-5.85 Venous blood hemoglobin measurement (mass/volume) 13.0 g/dL 11.5-16.0 Blood hematocrit (volume fraction) 39 % 35-52 Automated erythrocyte mean corpuscular volume 92 [ foz_us] 80-99 Automated erythrocyte mean corpuscular h emoglobin (mass per erythrocyte) 31 pg 25-34 Automated erythrocyte mean corpuscular h emoglobin concentration measurement (mass/volume) 33 g/dL 32-36 Automated erythrocyte distribution width ratio 12. 8 % 10.0- 14.5 Automated blood platelet count (count/volume) 182 10*3/uL [...] 5-14 Serum or plasma urea nitrogen measurement (mass/volume ) 15 mg/dL 7-18 Serum or plasma creatinine measurement (mass/volume) 0.75 mg/dL 0.60-1.30 Serum or plasma urea nitrogen/creatinine mass ratio 20 NRG Serum or plasma creatinine measurement w ith calculation of estimated glomerular filtration rate > NRG Serum or plasma glucose measurement (mass/volume) 181 mg/dL 70-105 Serum or plasma calcium measurement (mass/volume) 9.5 mg/dL 8.5-10.1 Serum or plasma total bilirubin measurement (mass/volu me) 0.6 mg/dL 0.1-1.0 Serum or plasma alkaline phosphatase beth surement (enzymatic activity/volume) 71 U/L 40-136 Serum or plasma aspartate aminotransfera se measurement (enzymatic activity/volume) 57 U/L 5-34 Serum or plasma alanine aminotransferase measurement (enzymatic activity/volume) 42 U/L 0-55 Serum or plasma protein measurement (mass/volume) 6.6 g/dL 6.4-8.2 Serum or plasma albumin measurement (mass/volume) 3.9 g/dL 3.2-4.5 Serum hepatitis B virus core antibody as say (units/volume) - 12/01/16 17:17 Hepatitis B core antibody measurement <0.07 <=0.50 Serum hepatitis B virus core antibody detection Non-Reactive NRG Body fluid hepatitis B virus surface ant igen detection - 12/01/16 17:17 Confirmatory quantitative serum or plasm a hepatitis B virus surface antigen measurement Non-Reactive Non-Reactive Serum hepatitis B virus surface antibody assay (units/volume) - 12/01/16 17:17 Serum hepatitis B virus surface antibody assay (units/ volume) < % >=10.00 Serum iron and total iron binding capaci ty panel - 12/01/16 17:17 Serum or plasma iron measurement (mass/volume) 77 % 35-180 Total iron binding capacity and transferrin saturation measurement 24 % 15-50 Iron binding capacity [mass/volume] in serum or plasma 325 % 280-380 UIBC (unsaturated iron binding capacity) 248 % 55-450 Serum or plasma ferritin measurement (mass/volume) 86.0 % 15.0-150.0 Cyanocobalamin measurement - 12/01/16 17 :17 Vitamin B12 499 pg/mL 200-1000 * Reference lab test name - 12/01/16 17: 17 * Reference lab test results TPMT LEVEL NR Vitamin B12 - 12/16/16 10:21 Vitamin B12 439 pg/mL 211-946 Lipid Panel - 12/16/16 10:21 Cholesterol, Total 185 mg/dL 100-199 Triglycerides 136 mg/dL 0-149 HDL Cholesterol 39 mg/dL >39 VLDL Cholesterol Onesimo 27 mg/dL 5-40 LDL Cholesterol Calc 119 mg/dL 0-99 CBC With Differential/Platelet - 7 16:07 WBC 7.3 x10E3/uL 3.4-10.8 RBC 4.25 x10E6/uL 3.77-5.28 Hemoglobin 12.9 g/dL 11.1-15.9 Hematocrit 38.6 % 34.0-46.6 MCV 91 fL 79-97 MCH 30.4 pg 26.6-33.0 MCHC 33.4 g/dL 31.5-35.7 RDW 13.3 % 12.3-15.4 Platelets 194 x10E3/uL 150-379 Neutrophils 66 % Lymphs 23 % Monocytes 7 % Eos 3 % Basos 0 % Neutrophils (Absolute) 4.9 x10E3/uL 1.4- 7.0 Lymphs (Absolute) 1.7 x10E3/uL 0.7-3.1 Monocytes(Absolute) 0.5 x10E3/uL 0.1-0.9 Eos (Absolute) 0.2 x10E3/uL 0.0-0.4 Baso (Absolute) 0.0 x10E3/uL 0.0-0.2 Immature Granulocytes 1 % Immature Grans (Abs) 0.0 x10E3/uL 0.0-0. 1 Comp. Metabolic Panel (14) - 01/03/17 16 :07 Glucose, Serum 215 mg/dL 65-99 BUN 19 [...] 48 IU/L 0-32 CBC With Differential/Platelet - 7 11:44 WBC 9.7 x10E3/uL 3.4-10.8 RBC 4.11 x10E6/uL 3.77-5.28 Hemoglobin 12.5 g/dL 11.1-15.9 Hematocrit 39.9 % 34.0-46.6 MCV 97 fL 79-97 MCH 30.4 pg 26.6-33.0 MCHC 31.3 g/dL 31.5-35.7 RDW 13.8 % 12.3-15.4 Platelets 195 x10E3/uL 150-379 Neutrophils 85 % Lymphs 12 % Monocytes 3 % Eos 0 % Basos 0 % Neutrophils (Absolute) 8.1 x10E3/uL 1.4- 7.0 Lymphs (Absolute) 1.2 x10E3/uL 0.7-3.1 Monocytes(Absolute) 0.3 x10E3/uL 0.1-0.9 Eos (Absolute) 0.0 x10E3/uL 0.0-0.4 Baso (Absolute) 0.0 x10E3/uL 0.0-0.2 Immature Granulocytes 0 % Immature Grans (Abs) 0.0 x10E3/uL 0.0-0. 1 Comp. Metabolic Panel (14) - 02/03/17 11 :44 Glucose, Serum 325 mg/dL 65-99 BUN 20 mg/dL 8-27 Creatinine, Serum 0.74 mg/dL 0.57-1.00 eGFR If NonAfricn Am 86 mL/min/1.73 >59 eGFR If Africn Am 100 mL/min/1.73 >5 9 BUN/Creatinine Ratio 27 12-28 Sodium, Serum 139 [...] Basos 0 % Neutrophils Absolute 3.2 X10E3/uL 1.4-7. 0 Lymphs (Absolute) 1.4 X10E3/uL 0.7-3.1 Monocytes(Absolute) 0.3 X10E3/uL 0.1-0.9 Eos (Absolute Value) 0.1 X10E3/uL 0.0-0. 4 Baso(Absolute) 0.0 X10E3/uL 0.0-0.2 Differential Comment Note: RBC Comment Note: Normal Platelet Comment Note: Adequate Comp. Metabolic Panel (14) - 03/15/17 09 :34 Glucose, Serum 245 mg/dL 65-99 BUN 10 mg/dL 8-27 Creatinine, Serum 0.68 mg/dL 0.57-1.00 eGFR If NonAfricn Am 93 mL/min/1.73 >59 eGFR If Africn Am 108 mL/min/1.73 >5 9 BUN/Creatinine Ratio 15 12-28 Sodium, Serum 143 [...] 24 IU/L 0-32 CBC With Differential/Platelet - 7 10:14 WBC 6.0 x10E3/uL 3.4-10.8 RBC 4.36 x10E6/uL 3.77-5.28 Hemoglobin 13.5 g/dL 11.1-15.9 Hematocrit 40.9 % 34.0-46.6 MCV 94 fL 79-97 MCH 31.0 pg 26.6-33.0 MCHC 33.0 g/dL 31.5-35.7 RDW 13.9 % 12.3-15.4 Platelets 187 x10E3/uL 150-379 Neutrophils 70 % Lymphs 20 % Monocytes 6 % Eos 3 % Basos 1 % Neutrophils (Absolute) 4.2 x10E3/uL 1.4- 7.0 Lymphs (Absolute) 1.2 x10E3/uL 0.7-3.1 Monocytes(Absolute) 0.4 x10E3/uL 0.1-0.9 Eos (Absolute) 0.2 x10E3/uL 0.0-0.4 Baso (Absolute) 0.0 x10E3/uL 0.0-0.2 Immature Granulocytes 0 % Immature Grans (Abs) 0.0 x10E3/uL 0.0-0. 1 Comp. Metabolic Panel (14) - 04/14/17 10 :14 Glucose, Serum 145 mg/dL 65-99 BUN 9 mg/dL 8-27 Creatinine, Serum 0.59 mg/dL 0.57-1.00 eGFR If NonAfricn Am 98 mL/min/1.73 >59 eGFR If Africn Am 113 mL/min/1.73 >5 9 BUN/Creatinine Ratio 15 12-28 Sodium, Serum 142 [...] (SGPT) 20 IU/L 0-32 Methicillin resistant Staphylococcus aur eus (MRSA) screening culture - 05/11/17 11:40 Methicillin resistant Staphylococcus aureus (MRSA) scr eening culture NEG NRG Capillary blood glucose measurement by g lucometer (mass/volume) - 05/18/17 08:12 Capillary blood glucose measurement by glucometer (mas s/volume) 119 mg/dL 70-110 Capillary blood glucose measurement by g lucometer (mass/volume) - 05/18/17 10:57 Capillary blood glucose measurement by glucometer (mas s/volume) 142 mg/dL 70-110 CBC - 06/14/17 12:12 [...] 0 % NRG Neutrophils (Absolute) 3.4 x10E3/uL 1.4- 7.0 Lymphs (Absolute) 1.2 x10E3/uL 0.7-3.1 Monocytes(Absolute) 0.4 x10E3/uL 0.1-0.9 Eos (Absolute) 0.2 x10E3/uL 0.0-0.4 Baso (Absolute) 0.0 x10E3/uL 0.0-0.2 Immature Granulocytes 0 % NRG Immature Grans (Abs) 0.0 x10E3/uL 0.0-0. 1 CMP - 06/14/17 12:12 Glucose, Serum 163 mg/dL 65-99 BUN 14 mg/dL 8-27 Creatinine, Serum 0.57 mg/dL 0.57-1.00 eGFR If NonAfricn Am 99 mL/min/1.73 >59 eGFR If Africn Am 114 mL/min/1.73 >5 9 BUN/Creatinine Ratio 25 12-28 Sodium, Serum 143 [...] 15 IU/L 0-32 CBC With Differential/Platelet - 7 12:12 WBC 5.1 x10E3/uL 3.4-10.8 RBC 4.02 x10E6/uL 3.77-5.28 Hemoglobin 12.5 g/dL 11.1-15.9 Hematocrit 38.1 % 34.0-46.6 MCV 95 fL 79-97 MCH 31.1 pg 26.6-33.0 MCHC 32.8 g/dL 31.5-35.7 RDW 14.3 % 12.3-15.4 Platelets 157 x10E3/uL 150-379 Neutrophils 67 % Lymphs 23 % Monocytes 7 % Eos 3 % Basos 0 % Neutrophils (Absolute) 3.4 x10E3/uL 1.4- 7.0 Lymphs (Absolute) 1.2 x10E3/uL 0.7-3.1 Monocytes(Absolute) 0.4 x10E3/uL 0.1-0.9 Eos (Absolute) 0.2 x10E3/uL 0.0-0.4 Baso (Absolute) 0.0 x10E3/uL 0.0-0.2 Immature Granulocytes 0 % Immature Grans (Abs) 0.0 x10E3/uL 0.0-0. 1 Comp. Metabolic Panel (14) - 06/14/17 12 :12 Glucose, Serum 163 mg/dL 65-99 BUN 14 mg/dL 8-27 Creatinine, Serum 0.57 mg/dL 0.57-1.00 eGFR If NonAfricn Am 99 mL/min/1.73 >59 eGFR If Africn Am 114 mL/min/1.73 >5 9 BUN/Creatinine Ratio 25 12-28 Sodium, Serum 143 [...] - 01/17/18 08:57 VITAMIN D,25-OH,TOTAL,IA 17 ng/mL 30-10 0 DIFFERENTIAL, MANUAL - 01/17/18 08:57 ABSOLUTE NEUTROPHILS 2857 cells/uL 1500- 7800 ABSOLUTE MONOCYTES 510 cells/uL 200-950 ABSOLUTE EOSINOPHILS 54 cells/uL 15-500 ABSOLUTE BASOPHILS 49 cells/uL 0-200 NEUTROPHILS 58.3 % NRG LYMPHOCYTES 27.1 % NRG MONOCYTES 10.4 % NRG EOSINOPHILS 1.1 % NRG BASOPHILS 1.0 % NRG ABSOLUTE BAND NEUTROPHILS 103 cells/uL 0 -750 ABSOLUTE LYMPHOCYTES 1328 cells/uL 850-3 900 BAND NEUTROPHILS 2.1 % NRG PLATELET ESTIMATION DECREASED ADEQUATE NOTE NRG Complete blood count (CBC) with automate d white blood cell (WBC) differential - 03/20/18 10:45 Blood leukocytes automated count (number/volume) 5.7 10*3/uL 4.3-11.0 Blood erythrocytes automated count (number/volume) 4.17 10*6/uL 4.35-5.85 Venous blood hemoglobin measurement (mass/volume) 13.1 g/dL 11.5-16.0 Blood hematocrit (volume fraction) 39 % 35-52 Automated erythrocyte mean corpuscular volume 94 [ foz_us] 80-99 Automated erythrocyte mean corpuscular h emoglobin (mass per erythrocyte) 31 pg 25-34 Automated erythrocyte mean corpuscular h emoglobin concentration measurement (mass/volume) 34 g/dL 32-36 Automated erythrocyte distribution width ratio 13. 5 % 10.0- 14.5 Automated blood platelet count (count/volume) 142 10*3/uL 130-400 Automated blood platelet mean volume measurement 9.5 [foz_us] 7.4-10.4 Automated blood neutrophils/100 leukocytes 58 % 42-75 Automated blood lymphocytes/100 leukocytes 28 % 12-44 Blood monocytes/100 leukocytes 9 % 0-12 Automated blood eosinophils/100 leukocytes 5 % 0-10 Automated blood basophils/100 leukocytes 1 % 0-10 Blood neutrophils automated count (number/volume) 3.3 10*3 1.8-7.8 Blood lymphocytes automated count (number/volume) 1.6 10*3 1.0-4.0 Blood monocytes automated count (number/volume) 0. 5 10*3 0.0-1.0 Automated eosinophil count 0.3 10*3/uL 0 .0-0.3 Automated blood basophil count (count/volume) 0.0 10*3/uL 0.0-0.1 Comprehensive metabolic panel - 03/20/18 10:45 Serum or plasma sodium measurement (moles/volume) 142 mmol/L 135-145 Serum or plasma potassium measurement (moles/volume) 4.3 mmol/L 3.6-5.0 Serum or plasma chloride measurement (moles/volume) 109 mmol/L 98-107 Carbon dioxide 22 mmol/L 21-32 Serum or plasma anion gap determination (moles/volume) 11 mmol/L 5-14 Serum or plasma urea nitrogen measurement (mass/volume ) 12 mg/dL 7-18 Serum or plasma creatinine measurement (mass/volume) 0.69 mg/dL 0.60-1.30 Serum or plasma urea nitrogen/creatinine mass ratio 17 NRG Serum or plasma creatinine measurement w ith calculation of estimated glomerular filtration rate > NRG Serum or plasma glucose measurement (mass/volume) 102 mg/dL 70-105 Serum or plasma calcium measurement (mass/volume) 9.9 mg/dL 8.5-10.1 Serum or plasma total bilirubin measurement (mass/volu me) 0.7 mg/dL 0.1-1.0 Serum or plasma alkaline phosphatase beth surement (enzymatic activity/volume) 63 U/L 40-136 Serum or plasma aspartate aminotransfera se measurement (enzymatic activity/volume) 33 U/L 5-34 Serum or plasma alanine aminotransferase measurement (enzymatic activity/volume) 27 U/L 0-55 Serum or plasma protein measurement (mass/volume) 6.8 g/dL 6.4-8.2 Serum or plasma albumin measurement (mass/volume) 3.9 g/dL 3.2-4.5 Methicillin resistant Staphylococcus aur eus (MRSA) screening culture - 03/20/18 10:45 Methicillin resistant Staphylococcus aureus (MRSA) scr eening culture NEG NRG Capillary blood glucose measurement by g lucometer (mass/volume) - 03/22/18 06:22 Capillary blood glucose measurement by glucometer (mas s/volume) 100 mg/dL 70-110 Complete blood count (CBC) with automate d white blood cell (WBC) differential - 04/15/18 13:44 Blood leukocytes automated count (number/volume) 6.4 10*3/uL 4.3-11.0 Blood erythrocytes automated count (number/volume) 4.18 10*6/uL 4.35-5.85 Venous blood hemoglobin measurement (mass/volume) 13.2 g/dL 11.5-16.0 Blood hematocrit (volume fraction) 39 % 35-52 Automated erythrocyte mean corpuscular volume 94 [ foz_us] 80-99 Automated erythrocyte mean corpuscular h emoglobin (mass per erythrocyte) 32 pg 25-34 Automated erythrocyte mean corpuscular h emoglobin concentration measurement (mass/volume) 34 g/dL 32-36 Automated erythrocyte distribution width ratio 12. 8 % 10.0- 14.5 Automated blood platelet count (count/volume) 173 10*3/uL 130-400 Automated blood platelet mean volume measurement 9.2 [foz_us] 7.4-10.4 Automated blood neutrophils/100 leukocytes 60 % 42-75 Automated blood lymphocytes/100 leukocytes 26 % 12-44 Blood monocytes/100 leukocytes 11 % 0-12 Automated blood eosinophils/100 leukocytes 4 % 0-10 Automated blood basophils/100 leukocytes 1 % 0-10 Blood neutrophils automated count (number/volume) 3.8 10*3 1.8-7.8 Blood lymphocytes automated count (number/volume) 1.6 10*3 1.0-4.0 Blood monocytes automated count (number/volume) 0. 7 10*3 0.0-1.0 Automated eosinophil count 0.2 10*3/uL 0 .0-0.3 Automated blood basophil count (count/volume) 0.0 10*3/uL 0.0-0.1 Comprehensive metabolic panel - 04/15/18 13:44 Serum or plasma sodium measurement (moles/volume) 142 mmol/L 135-145 Serum or plasma potassium measurement (moles/volume) 3.9 mmol/L 3.6-5.0 Serum or plasma chloride measurement (moles/volume) 108 mmol/L 98-107 Carbon dioxide 23 mmol/L 21-32 Serum or plasma anion gap determination (moles/volume) 11 mmol/L 5-14 Serum or plasma urea nitrogen measurement (mass/volume ) 13 mg/dL 7-18 Serum or plasma creatinine measurement (mass/volume) 0.75 mg/dL 0.60-1.30 Serum or plasma urea nitrogen/creatinine mass ratio 17 NRG Serum or plasma creatinine measurement w ith calculation of estimated glomerular filtration rate > NRG Serum or plasma glucose measurement (mass/volume) 148 mg/dL 70-105 Serum or plasma calcium measurement (mass/volume) 10.4 mg/dL 8.5-10.1 Serum or plasma total bilirubin measurement (mass/volu me) 0.7 mg/dL 0.1-1.0 Serum or plasma alkaline phosphatase beth surement (enzymatic activity/volume) 67 U/L 40-136 Serum or plasma aspartate aminotransfera se measurement (enzymatic activity/volume) 35 U/L 5-34 Serum or plasma alanine aminotransferase measurement (enzymatic activity/volume) 22 U/L 0-55 Serum or plasma protein measurement (mass/volume) 6.8 g/dL 6.4-8.2 Serum or plasma albumin measurement (mass/volume) 3.9 g/dL 3.2-4.5 Serum or plasma C reactive protein measu rement (mass/volume) - 04/15/18 13:44 Serum or plasma C reactive protein measurement (mass/v olume) 1.10 mg/dL 0.00-0.50 FERRITIN, SERUM - 07/05/18 10:41 FERRITIN 55 ng/mL 20-288 TSH - 07/05/18 10:41 TSH 1.31 mIU/L 0.40-4.50 VITAMIN D, 25-H - 07/05/18 10:41 VITAMIN D,25-OH,TOTAL,IA 34 ng/mL 30-10 0 A1C - 07/05/18 10:41 HEMOGLOBIN A1c 5.3 % of total Hgb <5.7 VITAMIN B12 - 07/05/18 10:41 VITAMIN B12 462 pg/mL 200-1100 Automated blood complete blood count (he mogram) panel - 02/20/19 11:52 Blood leukocytes automated count (number/volume) 8.5 10*3/uL 4.3-11.0 Blood erythrocytes automated count (number/volume) 4.12 10*6/uL 4.35-5.85 Venous blood hemoglobin measurement (mass/volume) 13.1 g/dL 11.5-16.0 Blood hematocrit (volume fraction) 39 % 35-52 Automated erythrocyte mean corpuscular volume 94 [ foz_us] 80-99 Automated erythrocyte mean corpuscular h emoglobin (mass per erythrocyte) 32 pg 25-34 Automated erythrocyte mean corpuscular h emoglobin concentration measurement (mass/volume) 34 g/dL 32-36 Automated erythrocyte distribution width ratio 12. 9 % 10.0- 14.5 Automated blood platelet count (count/volume) 147 10*3/uL 130-400 Automated blood platelet mean volume measurement 9.9 [foz_us] 7.4-10.4 PT panel in platelet poor plasma by coag ulation assay - 02/20/19 11:52 Prothrombin time (PT) in platelet poor plasma by coagu lation assay 14.6 s 12.2-14.7 INR in platelet poor plasma or blood by coagulation as say 1.1 0.8-1.4 Activated partial thromboplastin time (a PTT) in platelet poor plasma bycoagulation assay - 02/20/19 11:52 Activated partial thromboplastin time (a PTT) in platelet poor plasma bycoagulation assay 34 s 24-35 Comprehensive metabolic panel - 02/20/19 11:52 Serum or plasma sodium measurement (moles/volume) 142 mmol/L 135-145 Serum or plasma potassium measurement (moles/volume) 4.1 mmol/L 3.6-5.0 Serum or plasma chloride measurement (moles/volume) 111 mmol/L 98-107 Carbon dioxide 22 mmol/L 21-32 Serum or plasma anion gap determination (moles/volume) 9 mmol/L 5-14 Serum or plasma urea nitrogen measurement (mass/volume ) 15 mg/dL 7-18 Serum or plasma creatinine measurement (mass/volume) 0.71 mg/dL 0.60-1.30 Serum or plasma urea nitrogen/creatinine mass ratio 21 NRG Serum or plasma creatinine measurement w ith calculation of estimated glomerular filtration rate > NRG Serum or plasma glucose measurement (mass/volume) 137 mg/dL 70-105 Serum or plasma calcium measurement (mass/volume) 9.4 mg/dL 8.5-10.1 Serum or plasma total bilirubin measurement (mass/volu me) 0.9 mg/dL 0.1-1.0 Serum or plasma alkaline phosphatase ebth surement (enzymatic activity/volume) 73 U/L 40-136 Serum or plasma aspartate aminotransfera se measurement (enzymatic activity/volume) 37 U/L 5-34 Serum or plasma alanine aminotransferase measurement (enzymatic activity/volume) 25 U/L 0-55 Serum or plasma protein measurement (mass/volume) 6.8 g/dL 6.4-8.2 Serum or plasma albumin measurement (mass/volume) 3.9 g/dL 3.2-4.5 CALCIUM CORRECTED 9.5 mg/dL 8.5-10.1 Lipid 1996 panel - 02/20/19 11:52 Serum or plasma triglyceride measurement (mass/volume) 79 mg/dL <150 Serum or plasma cholesterol measurement (mass/volume) 171 mg/dL < 200 Serum or plasma cholesterol in HDL measurement (mass/v olume) 55 mg/dL 40-60 Cholesterol in LDL [mass/volume] in serum or plasma by direct assay 103 mg/dL 1-129 Serum or plasma cholesterol in VLDL measurement (mass/ volume) 16 mg/dL 5-40 Methicillin resistant Staphylococcus aur eus (MRSA) screening culture - 02/20/19 11:52 Methicillin resistant Staphylococcus aureus (MRSA) scr eening culture NEG NRG TSH - 05/11/19 11:03 TSH 1.28 mIU/L 0.40-4.50 VITAMIN D, 25-H - 05/11/19 11:03 VITAMIN D,25-OH,TOTAL,IA 29 ng/mL 30-10 0 A1C - 05/11/19 11:03 HEMOGLOBIN A1c 5.6 % of total Hgb <5.7 DIFFERENTIAL, MANUAL - 05/11/19 11:03 ABSOLUTE NEUTROPHILS 3739 cells/uL 1500- 7800 ABSOLUTE MONOCYTES 296 cells/uL 200-950 ABSOLUTE EOSINOPHILS 120 cells/uL 15-500 ABSOLUTE BASOPHILS 0 cells/uL 0-200 NEUTROPHILS 65.6 % NRG LYMPHOCYTES 25.0 % NRG MONOCYTES 5.2 % NRG EOSINOPHILS 2.1 % NRG BASOPHILS 0 % NRG ABSOLUTE BAND NEUTROPHILS 120 cells/uL 0 -750 ABSOLUTE LYMPHOCYTES 1425 cells/uL 850-3 900 BAND NEUTROPHILS 2.1 % NRG NOTE NRG VITAMIN B12 - 05/11/19 11:03 VITAMIN B12 475 pg/mL 200-1100 Methicillin resistant Staphylococcus aur eus (MRSA) screening culture - 10/24/19 08:00 Methicillin resistant Staphylococcus aureus (MRSA) scr eening culture NEG NRG COVID-19 ([facility]) - 01/03/20 15:48 PATIENT SYMPTOMATIC? NOT GIVEN NRG SOURCE: NOT GIVEN NRG OVERALL RESULT: NOT DETECTED NOT DETE CTED SARS-CoV-2 RNA: NEGATIVE NEGATIVE GUTIERREZ-SARS RNA: NEGATIVE NEGATIVE Encounters ACCT No. Visit Date/Time Discharge Status Pt. Type Provider Facility Loc./Unit Complaint [id number] 12/17/2016 10:10:00 Document Registration [id number] 02/04/2017 08:42:00 Document Registration [id number] 12/17/2016 08:41:00 Document Registration [id number] 03/16/2017 16:08:00 Document Registration [id number] 01/04/2017 08:35:00 Document Registration [id number] 04/15/2017 08:36:00 Document Registration [id number] 03/12/2020 11:00:00 03/12/2020 23:59:5 9 CLS Outpatient BRENTON DORAN MD [facility] [id number] 01/03/2020 12:45:00 Document Registration [id number] 05/11/2019 10:40:00 Document Registration [id number] 07/05/2018 10:40:00 Document Registration [id number] 01/17/2018 09:00:00 Document Registration [id number] 08/11/2017 09:40:00 Document Registration [id number] 06/14/2017 12:00:00 Document Registration [id number] 11/26/2014 08:32:00 11/26/2014 23:59: 59 CLS Outpatient VELMA SCHNEIDERN, WIL R [id number] 09/10/2014 13:42:00 09/10/2014 23:59: 59 CLS Outpatient VELMA SCHNEIDERN, WIL R [id number] 08/26/2014 08:15:00 08/26/2014 23:59: 59 CLS Outpatient VELMA PEOPLESOFT PROGRAMMER, WIL R [id number] 08/15/2014 07:58:00 08/15/2014 23:59: 59 CLS Outpatient PAOLO OCAMPO PSYD [id number] 07/03/2014 14:25:00 07/03/2014 23:59: 59 CLS Outpatient VELMA SCHNEIDERN, WIL R [id number] 06/28/2014 13:44:00 06/28/2014 23:59: 59 CLS Outpatient PAOLO OCAMPO PSYD [id number] 06/18/2014 10:47:00 06/18/2014 23:59: 59 CLS Outpatient VELMA PEOPLESOFT PROGRAMMER, WIL R [id number] 05/22/2014 11:18:00 05/22/2014 23:59: 59 CLS Outpatient VELMA PEOPLESOFT PROGRAMMER, WIL R [id number] 05/02/2014 12:46:00 05/02/2014 23:59: 59 CLS Outpatient GUMARO KIM DO [id number] 03/19/2014 14:16:00 03/19/2014 23:59: 59 CLS Outpatient VELMA SCHNEIDERN, WIL R [id number] 03/18/2014 00:00:00 03/18/2014 23:59: 59 CLS Outpatient CARA BUENROSTRO DDS [id number] 01/29/2014 14:31:00 01/29/2014 23:59: 59 CLS Outpatient VELMA JONES WIL [place]nejo [id number] 01/17/2014 15:12:00 01/17/2014 23:59: 59 CLS Outpatient VELMA JONES WIL R [id number] 12/06/2013 16:56:00 12/06/2013 23:59: 59 CLS Outpatient VELMA JONES WIL R [id number] 09/04/2013 11:13:00 09/04/2013 23:59: 59 CLS Outpatient VELMA JONES WIL R [id number] 08/24/2013 09:58:00 08/24/2013 23:59: 59 CLS Outpatient VELMA JONES WIL [place]jo [id number] 08/08/2013 12:20:00 08/08/2013 23:59: 59 CLS Outpatient ALEXANDREA JONES STEFANIE Cornejo [id number] 07/25/2013 15:26:00 07/25/2013 23:59: 59 CLS Outpatient GUMARO KIM DO [id number] 10/24/2019 07:24:00 12:20:00 DIS Outpatient RONY SAMANIEGO MD [facility] RIGHT KNEE ARTHROFIBRO SIS [id number] 10/17/2019 10:17:00 10:46:00 DIS Outpatient RONY SAMANIEGO MD [facility] PREOP RT KNEE SCOPE/ LYSIS O F ADHESIONS [id number] 02/20/2019 11:07:00 16:50:00 DIS Outpatient STEPHANIA SOMERS FACC, CHARLINE MEDEL CC DS [facility] CATH PALPITATION S [id number] 02/12/2019 09:00:00 23:59:59 CLS Preadmit BRENTON DORAN MD [facility] CARD PALPITATIONS [id number] 11/13/2018 11:15:00 00:01:00 DIS Outpatient BRENTON DORAN MD [facility] CARD PALPITATIONS [id number] 01/05/2019 13:38:00 019 23:59:59 CLS Outpatient BRENTON DORAN MD [facility] CARD TRIGEMINY [id number] 04/15/2018 13:08:00 018 15:06:00 DIS Emergency ANA SOMERS, GUILLE [place] [facility] ER R ANKLE SURGERY,INCISIO N AREA RED [id number] 03/22/2018 06:10:00 018 11:50:00 DIS Outpatient RONY SAMANIEGO MD [facility] RIGHT CALCANEOUS EXOTO SIS [id number] 03/20/2018 10:20:00 018 10:55:00 DIS Outpatient RONY SAMANIEGO MD [facility] PREOP RIGHT CALCANEOUS EXOTO SIS [id number] 08/16/2017 09:15:00 017 23:59:59 CLS Outpatient BRENTON DORAN MD [facility] RAD Z12.31 SCREENING [id number] 06/01/2017 10:14:00 017 23:59:59 CLS Outpatient BRENTON DORAN MD [facility] CARD R07.89 OTHER CHEST PAIN [id number] 05/18/2017 08:07:00 017 13:40:00 DIS Outpatient [facility] CUFF [facility] [id number] 05/11/2017 05:35:00 017 11:53:00 DIS Outpatient RONY SAMANIEGO MD [facility] PREOP ROTATOR CUFF TEAR [id number] 04/25/2017 13:19:00 017 23:59:59 CLS Outpatient BRENTON DORAN MD [facility] RAD ACUTE PAIN OF RT SHOULD ER M25.511 [id number] 04/04/2017 17:20:00 017 19:05:00 DIS Emergency MAYTE DICKERSON APRN [facility] ER FELL/RT SHOULDER PAIN/L T HAND BRUISING [id number] 12/12/2016 14:07:00 15:55:00 DIS Emergency TURNER RUIZ MD [facility] ER FALL/R KNEE/ELBOW/HAND INJ [id number] 12/01/2016 16:53:00 23:59:59 CLS Outpatient HUMBERTO CHRISTIAN MD [facility] LAB CROHN'S DISEASE [id number] 11/05/2016 20:14:00 07:16:00 DIS Outpatient ARTHUR LOVING APRN [facility] SLEEP OBSERVED APNEAS; SLEEP APNEA, UNSPECIFIED [id number] 09/29/2016 14:06:00 016 15:58:00 DIS Emergency JENNIFER BRIDGES [facility] ER CONSTIPATION [id number] 09/09/2016 20:45:00 04:10:00 DIS Outpatient ARTHUR LOVING APRN [facility] SLEEP SNORING,MORNING HEADAC HE [id number] 08/03/2016 09:54:00 016 23:59:59 CLS Outpatient BRENTON DORAN MD [facility] RAD ELEVATED ALT MEASUREMEN T [id number] 07/30/2016 12:50:00 23:59:59 CLS Outpatient BRENTON DORAN MD [facility] RAD HEMATURIA,RIGHT SIDED T HORACIC BACK PAIN [id number] 07/16/2016 13:15:00 23:59:59 CLS Outpatient RONY REYES MD [facility] RAD PULSITILE TINNITIS [id number] 06/29/2016 13:33:00 23:59:59 CLS Outpatient BRENTON DORAN MD [facility] RAD CHRONIC LENSION-TYPE HE ADACHE [id number] 01/25/2016 10:45:00 11:59:00 DIS Emergency MAYTE DICKERSON APRN [facility] ER UNABLE TO MOVE L LEG [id number] 12/10/2015 07:43:00 11:37:00 DIS Outpatient RONY SAMANIEGO MD [facility] LT.CARPAL TUNNEL [id number] 12/02/2015 12:57:00 016 23:59:59 CLS Outpatient RONY SAMANIEGO MD [facility] PREOP CARPEL TUNNEL [id number] 04/18/2015 14:20:00 23:59:59 CLS Outpatient JASON SOMERS, [facility] RAD CONSTIPATION [id number] 01/01/2015 10:11:00 015 23:59:59 CLS Outpatient JASON SOMERS, [facility] RAD UMBILICAL HERNIA, [id number] 08/29/2014 09:17:00 014 23:59:59 CLS Outpatient WIL CARREON APRN [facility] RAD ABD PAIN,EPIGAS TRIC,DIARHEA [id number] 01/29/2014 16:09:00 014 23:59:59 CLS Outpatient WIL CARREON APRN [facility] RAD RUQ PAIN [id number] 07/24/2016 08:35:00 Document Registration [id number] 06/15/2017 07:06:00 Document Registration
--- NOTE | 2020-03-16 12:23 | ED Cardiac General ---
History of Present Illness General Chief Complaint: Cardiac/General Problems Stated Complaint: BP ISSUES Nursing Triage Note: Pt c/o dizziness that began on . Pt called Dr. Doran's office on Tuesday and spoke with nurse, Sariah. Pt reports blood pressures that day of low 100 systolic over 40 diastolic. Pt reports being told to stop blood pressure medications at that time. Pt reports taking blood pressure every one to two hours yesterday with significant fluctuations. Pt reports BP was 147/63 when going to bed. Pt felt as if the room was spinning and stood and took blood pressure. Pt reprots blood pressure was 191/97 then. Pt c/o chest, back and shoulder pressure, tightness/discomfort. Pt reports taking metoprolol (unsure of of strength), lisinopril 40 mg, HCTZ 25 mg. Pt c/o headache and nausea. History of Present Illness Date Seen by Provider: Mar 16, 2020 Time Seen by Provider: 12:00 Initial Comments 64 year old obese female presents for vertigo, labile B/P, and minimal chest pressure radiating to upper back since 03/13/20. No known CAD, had heart cath in 2018 with no significant etiology by Dr. Thompson. Takes Metoprolol, Lisinopril and HCTZ for B/P, but hasn't taken any since 03/13/20. B/P was 100/40 on 03/14/[address] Doran's office instructed her to not take B/P medicine. She is not on ASA or anticoagulants. No hx of COPD, CHF or DM. Timing/Duration: 2-3 days Location: substernal (pressure), back (pressure) Activities at Onset: none Prior CP/Workup: cardiac cath NTG SL DRIER AND GRINDER TENDER: No ASA po DRIER AND GRINDER TENDER: No Associated Systoms: Shortness of Air (with exertion, slightly worse than baseline but SaO2 98% on RA. Uses Cpap at night. ) Allergies and Home Medications Allergies Coded Allergies: Penicillins (Verified Allergy, Intermediate, HIVES, 05/18/17) Sulfa (Sulfonamide Antibiotics) (Verified Allergy, Intermediate, HIVES, 05/18/17) adhesive tape (Verified Allergy, Intermediate, HIVES, 05/18/17) tetanus and diphtheria toxoids (Verified Allergy, Intermediate, HIVES, 05/18/17) Influenza Virus Vaccines (Verified Adverse Reaction, Mild, NAUSEA, 05/18/17) atorvastatin (Verified Adverse Reaction, Mild, NAUSEA, 05/18/17) hydromorphone (Verified Adverse Reaction, Mild, hallucinations, 05/18/17) morphine (Verified Adverse Reaction, Mild, hallcination, 05/18/17) simvastatin (Verified Adverse Reaction, Mild, NAUSEA, 05/18/17) Uncoded Allergies: myocins (Allergy, Unknown, NAUSEA, 12/02/15) Home Medications Acetaminophen 325 Mg Tablet, 325 MG PO PRN, (Reported) Ascorbate Calcium 500 Mg Tablet, 500 MG PO DAILY, (Reported) Cholecalciferol (Vitamin D3) 2,000 Unit Tablet, 2,000 UNIT PO DAILY, (Reported) Cyanocobalamin 1,000 Mcg/Ml Inj, 1,000 MCG IJ MONTHLY, (Reported) Escitalopram Oxalate 20 Mg Tablet, 20 MG PO DAILY, (Reported) Ezetimibe 10 Mg Tablet, 10 MG PO DAILY, (Reported) Ferrous Sulfate 325 Mg Tablet.dr, 325 MG PO DAILY, (Reported) Hydrocodone Bit/Acetaminophen 1 Each Tablet, 1 TAB PO Q4H Prescribed by: BALTAZAR CARROLL on 10/24/19 1112 Levothyroxine Sodium 100 Mcg Tablet, 100 MCG PO DAILY, (Reported) Lisinopril 40 Mg Tablet, 40 MG PO DAILY, (Reported) Melatonin/Pyridoxine 1 Each Tablet, 5 MG PO HS, (Reported) Metoprolol Succinate 50 Mg Tab.er.24h, 50 MG PO DAILY, (Reported) [Ferrous Sulfate] , 65 MG PO HS, (Reported) Patient Home Medication List Home Medication List Reviewed: Yes Review of Systems Review of Systems Constitutional: no symptoms reported, see HPI Cardiovascular: See HPI, Chest Pain Gastrointestinal: No Symptoms Reported, See HPI; Denies Constipated, Denies Nausea, Denies Poor Appetite, Denies Poor Fluid Intake, Denies Vomiting Genitourinary: No Symptoms Reported, See HPI Musculoskeletal: no symptoms reported, see HPI Skin: no symptoms reported, see HPI All Other Systems Reviewed Negative Unless Noted: Yes Past Bjxurcg-Bgcrtn-Qmswfp Hx Past Med/Social Hx: Reviewed Nursing Past Med/Soc Hx Patient Social History Alcohol Use: Rarely Uses Recreational Drug Use: No Smoking Status: Never a Smoker 2nd Hand Smoke Exposure: No Recent Foreign Travel: No Contact w/Someone Who Travel: No Recent Infectious Disease Expo: No Recent Hopitalizations: No Seasonal Allergies Seasonal Allergies: Yes Past Medical History Surgeries: Yes (right tkr x2, JUNIE HEEL SPUR, mass removed from colon, COLECTOMY ) Appendectomy, Hysterectomy, Thyroidectomy Respiratory: Yes (uses cpap) Sleep Apnea Currently Using CPAP: Yes Currently Using BIPAP: No Cardiac: Yes High Cholesterol, Hypertension Neurological: No Reproductive Disorders: No 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 Sexually Transmitted Disease: No HIV/AIDS: No Genitourinary: No Gastrointestinal: Yes (benign colon mass removed, enlarged spleen) Chronic Diarrhea, Cirrhosis Musculoskeletal: Yes Osteoporosis, Arthritis Endocrine: Yes Hypothyroidsim HEENT: Yes (GLASSES) Loss of Vision: Denies Hearing Impairment: Denies Cancer: No Psychosocial: Yes Anxiety, Depression Integumentary: No Blood Disorders: Yes (HX ANEMIA) Adverse Reaction/Blood Tranf: No (HAS HAD BLOOD WITH NO REACTION) Family Medical History No Pertinent Family Hx Physical Exam Vital Signs Vital Signs - First Documented 03/16/20 11:35 Temp 36.6 Pulse 65 Resp 22 B/P (MAP) 182/83 (116) Pulse Ox 99 O2 Delivery Room Air Capillary Refill : Less Than 3 Seconds Height, Weight, BMI Height: 5'2.00" Weight: 306lbs. 0.0oz. [id number]; 59.00 BMI Method:Stated General Appearance: No Apparent Distress, WD/WN, Obese HEENT: PERRL/EOMI, TMs Normal, Normal ENT Inspection, Pharynx Normal, Other (Bilat ears with Page effusion, no TM bulging. Patient deneis ear pain. Has chronic sinus congestion, no nasal discharge or cough. ) Neck: Full Range of Motion, Normal Inspection, Non Tender, Supple Respiratory: Chest Non Tender, Lungs Clear, Normal Breath Sounds, No Accessory Muscle Use, No Respiratory Distress Cardiovascular: Regular Rate, Rhythm, No Edema, No Murmur, Normal Peripheral Pulses Gastrointestinal: Normal Bowel Sounds, Non Tender, Soft Extremity: Normal Capillary Refill, Normal Inspection, Normal Range of Motion, Non Tender, No Calf Tenderness, No Pedal Edema Neurologic/Psychiatric: Alert, Oriented x3, No Motor/Sensory Deficits, Normal Mood/Affect Skin: Normal Color, Warm/Dry Progress/Results/Core Measures Results/Orders Lab Results Laboratory Tests Test 03/16/20 12:25 Range/Units White Blood Count 5.6 4.3-11.0 10^3/uL Red Blood Count 4.03 L 4.35-5.85 10^6/uL Hemoglobin 13.4 11.5-16.0 G/DL Hematocrit 38 35-52 % Mean Corpuscular Volume 94 80-99 FL Mean Corpuscular Hemoglobin 33 25-34 PG Mean Corpuscular Hemoglobin Concent 35 32-36 G/DL Red Cell Distribution Width 12.5 10.0-14.5 % Platelet Count 105 L 130-400 10^3/uL Mean Platelet Volume 9.6 7.4-10.4 FL Neutrophils (%) (Auto) 60 42-75 % Lymphocytes (%) (Auto) 28 12-44 % Monocytes (%) (Auto) 8 0-12 % Eosinophils (%) (Auto) 4 0-10 % Basophils (%) (Auto) 1 0-10 % Neutrophils # (Auto) 3.3 1.8-7.8 X 10^3 Lymphocytes # (Auto) 1.5 1.0-4.0 X 10^3 Monocytes # (Auto) 0.5 0.0-1.0 X 10^3 Eosinophils # (Auto) 0.2 0.0-0.3 10^3/uL Basophils # (Auto) 0.0 0.0-0.1 10^3/uL Prothrombin Time 14.5 12.2-14.7 SEC INR Comment 1.1 0.8-1.4 Activated Partial Thromboplast Time 35 24-35 SEC Sodium Level 140 135-145 MMOL/L Potassium Level 3.4 L 3.6-5.0 MMOL/L Chloride Level 110 H 98-107 MMOL/L Carbon Dioxide Level 19 L 21-32 MMOL/L Anion Gap 11 5-14 MMOL/L Blood Urea Nitrogen 12 7-18 MG/DL Creatinine 0.80 0.60-1.30 MG/DL Estimat Glomerular Filtration Rate > 60 BUN/Creatinine Ratio 15 Glucose Level 291 H 70-105 MG/DL Calcium Level 9.4 8.5-10.1 MG/DL Corrected Calcium 9.8 8.5-10.1 MG/DL Magnesium Level 1.5 L 1.6-2.4 MG/DL Total Bilirubin 1.1 H 0.1-1.0 MG/DL Aspartate Amino Transf (AST/SGOT) 25 5-34 U/L Alanine Aminotransferase (ALT/SGPT) 20 0-55 U/L Alkaline Phosphatase 61 40-136 U/L Myoglobin 34.1 10.0-92.0 NG/ML Troponin I < 0.028 <0.028 NG/ML B-Type Natriuretic Peptide 23.9 <100.0 PG/ML Total Protein 6.2 L 6.4-8.2 GM/DL Albumin 3.5 3.2-4.5 GM/DL My Orders Orders - BALTAZAR XAVIER DERMATOLOGY NURSE PRACTITIONER Cbc With Automated Diff (03/16/20 12:00) Magnesium (03/16/20 12:00) Chest 1 View, Ap/Pa Only (03/16/20 12:00) Ekg Tracing (03/16/20 12:00) Comprehensive Metabolic Panel (03/16/20 12:00) Myoglobin Serum (03/16/20 12:00) Protime With Inr (03/16/20 12:00) Partial Thromboplastin Time (03/16/20 12:00) O2 (03/16/20 12:00) Monitor-Rhythm Ecg Trace Only (03/16/20 12:00) Ed Iv/Invasive Line Start (03/16/20 12:00) BNP (03/16/20 12:00) Troponin I (03/16/20 12:00) Aspirin Chewable Tablet (Baby Aspirin Ch (03/16/20 12:00) Potassium Chloride (Tablet) (Klor Con Ta (03/16/20 13:03) Magnesium Oxide Tablet (Mag Ox Tablet) (03/16/20 13:15) Meclizine Tablet (Antivert Tablet) (03/16/20 13:30) Medications Given in ED Current Medications Medications Dose Ordered Sig/Sandi Route Start Time Stop Time Status Last Admin Dose Admin Aspirin 324 mg ONCE ONCE PO 03/16/20 12:00 03/16/20 12:02 DC 03/16/20 12:50 324 MG Magnesium Oxide 400 mg ONCE ONCE PO 03/16/20 13:15 03/16/20 13:16 DC 03/16/20 13:20 400 MG Meclizine HCl 25 mg ONCE ONCE PO 03/16/20 13:30 03/16/20 13:31 DC 03/16/20 13:38 25 MG Vital Signs/I&O 03/16/20 11:35 Temp 36.6 Pulse 65 Resp 22 B/P (MAP) 182/83 (116) Pulse Ox 99 O2 Delivery Room Air Blood Pressure Mean: 116 Progress Progress Note : Time: 12:00 Progress Note Patient seen and evaluated, will obtain labs, EKG, chest x-ray, aspirin 324 mg orally. Clarified with patient, main reason for coming today: blood pressure and vertigo. Chest pressure has been intermittent for 3 days and not worse today or present at this time. 1300 Patient denies chest pressure or pain. B/P 140/60. Will Give K+ 10 mEq and Magnesium for electrolytes. Will give Meclizine 25 mg for vertigo. 1320 Labs WNL. Discussed patient with Dr Molina, plan of care for outpatient management agree on. Initial ECG Impression Date: Mar 16, 2020 Initial ECG Impression Time: 12:06 Initial ECG Rate: 69 Initial ECG Rhythm: Normal Sinus Initial ECG Intervals: Normal Initial ECG Intervals VA to 26, QRSD 99, QT 439, QTc 471. [place] P 100, QRS 27, T 35. Initial ECG Impression: Normal Initial ECG Comparisson: Unchanged Diagnostic Imaging Diagonstic Imaging: Xray Plain Films/CT/US/NM/MRI: chest Comments NAME: MECHE LOPEZ [facility] REC#: [id number] PT STATUS: REG ER : 1955 PHYSICIAN: BALTAZAR XAVIER ADMIT DATE: 03/16/20/ER Draft Date of Exam:03/16/20 CHEST 1 VIEW, AP/PA ONLY CLINICAL INDICATION: Patient with fluctuating blood pressure x3 days. EXAM: Portable chest x-ray upright view. COMPARISONS: None. FINDINGS: Lungs/pleura: Lungs are clear. There is no pneumothorax. There is no pleural effusion. Mediastinum: Unremarkable. Pulmonary vasculature: Unremarkable. Heart: Cardiac silhouette is upper limits of normal. Bones/extrathoracic soft tissue: Bones show no significant abnormality. IMPRESSION: There is no radiographic evidence of acute cardiopulmonary process. Dictated on workstation # [id number] Dict: 03/16/20 1236 Trans: 03/16/20 1241 AS6 [id number] Interpreted by: JACKY BLACKWELL MD Electronically signed by: Reviewed: Reviewed by Me Departure Impression Primary Impression: Exertional dyspnea Additional Impressions: Labile hypertension Vertigo Ear congestion Disposition: 01 HOME, SELF-CARE Condition: Improved Departure-Patient Inst. Decision time for Depature: 13:20 Referrals: BRENTON DORAN MD (PCP/Family) Primary Care Physician Patient Instructions: Vertigo (a Type of Dizziness) (DC) Add. Discharge Instructions: Use Afrin 2 sprays, twice a day for 3-4 days. Take a Multi-Vit daily Use Meclizine 25 mg every 8 hours, as needed, for dizziness. Check Blood Pressure twice daily and document, take to your appt with Dr. Doran. Resume your Lisinopril, if your blood pressure remains 140/80 or higher, otherwise hold your blood pressure medicines. Increase vegetables in your diet, limit carbohydrates and sugar. Increase water intake. Return to the Emergency Dept if worsening shortness of breath, chest pain or new, urgent health care needs. All discharge instructions reviewed with patient and/or family. Voiced u nderstanding. Copy Copies To 1: BRENTON DORAN MD, AMY ARNP Mar 16, 2020 12:23
[2020-03-16 12:35] LABS: BASOPHILS % (AUTO) 1 % (0-10); EOSINOPHILS # (AUTO) 0.2 10^3/uL (0.0-0.3); EOSINOPHILS % (AUTO) 4 % (0-10); HEMATOCRIT 38 % (35-52); HEMOGLOBIN 13.4 G/DL (11.5-16.0); LYMPHOCYTES # (AUTO) 1.5 X 10^3 (1.0-4.0); LYMPHOCYTES % (AUTO) 28 % (12-44); MEAN CORPUSCULAR HEMOGLOBIN 33 PG (25-34); MEAN CORPUSCULAR HGB CONC 35 G/DL (32-36); MEAN CORPUSCULAR VOLUME 94 FL (80-99); MEAN PLATELET VOLUME 9.6 FL (7.4-10.4); MONOCYTES # (AUTO) 0.5 X 10^3 (0.0-1.0); MONOCYTES % (AUTO) 8 % (0-12); NEUTROPHILS # (AUTO) 3.3 X 10^3 (1.8-7.8); NEUTROPHILS % (AUTO) 60 % (42-75); PLATELET COUNT 105 10^3/uL (130-400); RED CELL DISTRIBUTION WIDTH 12.5 % (10.0-14.5); WHITE BLOOD COUNT 5.6 10^3/uL (4.3-11.0)
--- NOTE | 2020-03-16 12:41 | Diagnostic Imaging Report ---
CLINICAL INDICATION: Patient with fluctuating blood pressure x3 days. EXAM: Portable chest x-ray upright view. COMPARISONS: None. FINDINGS: Lungs/pleura: Lungs are clear. There is no pneumothorax. There is no pleural effusion. Mediastinum: Unremarkable. Pulmonary vasculature: Unremarkable. Heart: Cardiac silhouette is upper limits of normal. Bones/extrathoracic soft tissue: Bones show no significant abnormality. IMPRESSION: There is no radiographic evidence of acute cardiopulmonary process. Dictated by: Dictated on workstation # [id number]
[2020-03-16 12:45] LABS: ALBUMIN 3.5 GM/DL (3.2-4.5); CHLORIDE 110 MMOL/L (98-107); INR 1.1 (0.8-1.4); POTASSIUM 3.4 MMOL/L (3.6-5.0); PROTHROMBIN TIME PATIENT 14.5 SEC (12.2-14.7); SODIUM 140 MMOL/L (135-145)
[2020-03-16 12:46] LABS: CALCIUM 9.4 MG/DL (8.5-10.1)
[2020-03-16 12:47] LABS: GLUCOSE 291 MG/DL (70-105)
[2020-03-16 12:48] LABS: TOTAL PROTEIN 6.2 GM/DL (6.4-8.2)
[2020-03-16 12:49] LABS: BILIRUBIN,TOTAL 1.1 MG/DL (0.1-1.0); CARBON DIOXIDE 19 MMOL/L (21-32)
[2020-03-16 12:51] LABS: ALKALINE PHOSPHATASE 61 U/L (40-136); GFR ESTIMATED > 60
[2020-03-16 12:52] LABS: BUN/CREATININE RATIO 15
[2020-03-16 12:54] LABS: ALANINE AMINOTRANSFERASE 20 U/L (0-55); MAGNESIUM 1.5 MG/DL (1.6-2.4)
[2020-03-16] MEDS ORDERED: KCL 10 MEQ TAB (MICRO K) PO STA (13:03)
[2020-03-16] MEDS ORDERED: MAGNESIUM OXIDE (MAG-OX)400 MG TAB PO ONE (13:15)
[2020-03-16] MEDS ORDERED: MECLIZINE 25 MG (ANTIVERT) TAB PO ONE (13:30)
[2020-03-16 13:50] VITALS: BP 128/65
== END 2020-03-16 13:50 | disposition home or self-care (01) ==
LOC: EDUNIT# 11:32 → ER 11:33
DX: R06.09 Other forms of dyspnea (principal); I10 Essential (primary) hypertension; R42 Dizziness and giddiness; H93.8X3 Other specified disorders of ear, bilateral; E78.00 Pure hypercholesterolemia, unspecified; E03.9 Hypothyroidism, unspecified; D64.9 Anemia, unspecified; F41.9 Anxiety disorder, unspecified; F32.9 Major depressive disorder, single episode, unspecified; Z88.0 Allergy status to penicillin; Z88.2 Allergy status to sulfonamides; Z88.7 Allergy status to serum and vaccine; Z88.8 Allergy status to other drugs, medicaments and biological substances; Z88.5 Allergy status to narcotic agent; Z79.890 Hormone replacement therapy
CPT/HCPCS: 36415; 71045; 80053; 83735; 83874; 83880; 84484; 85025; 85610; 85730; 93005; 93041

== ENCOUNTER 2020-08-19 11:01 | Day surgery (SDC) | payer MEDICARE ==
[~2020-08-19] VITALS: Ht 157 cm; Wt 155.0 kg
[2020-08-19] MEDS ORDERED: LIDOCAINE 1% INJ 20 ML 20 ML VIAL ONE (11:07)
[2020-08-19] MEDS ORDERED: LIDOCAINE 1% INJ 20 ML 20 ML VIAL INJ ONE (11:15)
[2020-08-19 11:27] VITALS: BP 201/94
--- NOTE | 2020-08-19 17:35 | OPERATIVE REPORT ---
DATE OF SERVICE: 08/19/2020 PREOPERATIVE DIAGNOSES: Syncope, palpitations. POSTOPERATIVE DIAGNOSES: Syncope, palpitations. PROCEDURE: Implantable loop recorder implantation. INDICATIONS: The patient is a 64-year-old lady, who has a history of palpitations and syncope. Implantable loop recorder implantation was advised and informed consent was obtained. DESCRIPTION OF PROCEDURE: [facility] The left prepectoral area was prepared and draped in the usual sterile fashion. Lidocaine 1% was used for local anesthesia. Tools provided with the [employer] implantable loop recorder were used to make a subcutaneous pocket anterior to the left fourth intercostal space into which the device was placed. This is a [employer] Reveal LINQ device with serial #[id number]. The skin edges were closed with Dermabond and Steri-Strips. She tolerated the procedure well. Job ID: [id number] DocumentID: [id number] Dictated Date: 08/19/2020 11:55:52 Grant Specialist Date: 08/19/2020 17:35:30 Dictated By: CHARLINE CAT MD, MA, FACP, FACC,
== END 2020-08-19 12:22 | disposition home or self-care (01) ==
LOC: CATH 11:01
PROVIDERS: ATTEND Internal Medicine Cardiovascular Disease
DX: R55 Syncope and collapse (principal); R00.2 Palpitations; G47.33 Obstructive sleep apnea (adult) (pediatric); I11.0 Hypertensive heart disease with heart failure; I50.33 Acute on chronic diastolic (congestive) heart failure; G89.29 Other chronic pain; M54.5 Low back pain; E11.9 Type 2 diabetes mellitus without complications; E66.01 Morbid (severe) obesity due to excess calories; Z68.44 Body mass index [BMI] 60.0-69.9, adult; Z79.899 Other long term (current) drug therapy; Z88.0 Allergy status to penicillin; Z88.1 Allergy status to other antibiotic agents; Z88.7 Allergy status to serum and vaccine; Z88.5 Allergy status to narcotic agent; Z88.8 Allergy status to other drugs, medicaments and biological substances; Z91.048 Other nonmedicinal substance allergy status; Z90.710 Acquired absence of both cervix and uterus; Z82.3 Family history of stroke
CPT/HCPCS: 33285; C1764

== ENCOUNTER 2020-11-10 12:57 | Outpatient (RCR) | payer MEDICARE ==
[~2020-11-10] VITALS: Ht 157.5 cm; Wt 153.0 kg
[2020-11-10] MEDS ORDERED: CHOL200059 PO (13:13)
[2020-11-10 13:54] LABS: BILIRUBIN,URINE NEGATIVE (NEGATIVE); CLARITY,URINE CLEAR; COLOR,URINE ORANGE; GLUCOSE, URINE (UA) NEGATIVE (NEGATIVE); KETONES,URINE TRACE (NEGATIVE); LEUKOCYTE ESTERASE ,URINE NEGATIVE (NEGATIVE); NITRITE,URINE NEGATIVE (NEGATIVE); PROTEIN,URINE NEGATIVE (NEGATIVE)
[2020-11-10 13:58] VITALS: BP 184/94
[2020-11-10 14:03] LABS: BASOPHILS % (AUTO) 1 % (0-10); EOSINOPHILS # (AUTO) 0.6 10^3/uL (0.0-0.3); EOSINOPHILS % (AUTO) 10 % (0-10); HEMATOCRIT 38 % (35-52); HEMOGLOBIN 13.3 g/dL (11.5-16.0); LYMPHOCYTES # (AUTO) 1.4 10^3/uL (1.0-4.0); LYMPHOCYTES % (AUTO) 23 % (12-44); MEAN CORPUSCULAR HEMOGLOBIN 34 pg (25-34); MEAN CORPUSCULAR HGB CONC 35 g/dL (32-36); MEAN CORPUSCULAR VOLUME 97 fL (80-99); MEAN PLATELET VOLUME 9.6 fL (9.0-12.2); MONOCYTES # (AUTO) 0.4 10^3/uL (0.0-1.0); MONOCYTES % (AUTO) 7 % (0-12); NEUTROPHILS # (AUTO) 3.7 10^3/uL (1.8-7.8); NEUTROPHILS % (AUTO) 59 % (42-75); WHITE BLOOD COUNT 6.2 10^3/uL (4.3-11.0)
[2020-11-10 14:04] LABS: INR 1.3 (0.8-1.4); PLATELET COUNT 77 10^3/uL (130-400); PROTHROMBIN TIME PATIENT 16.8 SEC (12.2-14.7)
[2020-11-10 14:08] LABS: BACTERIA,URINE FEW /HPF; CALCIUM OXALATE CRYSTALS,UR LARGE /LPF
[2020-11-10 14:12] LABS: ALANINE AMINOTRANSFERASE 19 U/L (0-55); ALBUMIN 3.3 GM/DL (3.2-4.5); ALKALINE PHOSPHATASE 79 U/L (40-136); BILIRUBIN,TOTAL 2.7 MG/DL (0.1-1.0); BUN/CREATININE RATIO 15; CALCIUM 9.1 MG/DL (8.5-10.1); CARBON DIOXIDE 22 MMOL/L (21-32); CHLORIDE 111 MMOL/L (98-107); CREATININE SERUM 0.72 MG/DL (0.60-1.30); GFR ESTIMATED > 60; GLUCOSE 173 MG/DL (70-105); POTASSIUM 3.2 MMOL/L (3.6-5.0); SODIUM 143 MMOL/L (135-145); TOTAL PROTEIN 5.9 GM/DL (6.4-8.2)
--- NOTE | 2020-11-10 14:23 | Diagnostic Imaging Report ---
INDICATION: Evaluation prior to orthopedic surgery, knee replacement. TECHNIQUE: Two view chest at 1:50 PM. CORRELATION STUDY: 03/16/2020. FINDINGS: The heart size is enlarged but stable. The vasculature is slightly more prominent from the prior exam. No overt failure. A loop recorder device has been placed over the chest. The lungs are clear with no consolidating infiltrate. There is no significant pleural effusion or pneumothorax. Degenerative changes with slightly accentuated thoracic kyphosis are present. Likely prior right rotator cuff surgery. IMPRESSION: Stable cardiac enlargement. The vasculature, however, is slightly more prominent from the prior study. Dictated by: Dictated on workstation # [id number]
[2020-11-10 14:24] LABS: ERYTHROCYTE SEDIMENTATION RATE 10 MM/HR (0-30)
== END 2020-11-10 15:10 | disposition home or self-care (01) ==
LOC: PREOP 12:57
PROVIDERS: ATTEND Orthopaedic Surgery
DX: Z01.812 Encounter for preprocedural laboratory examination (principal); M17.12 Unilateral primary osteoarthritis, left knee
CPT/HCPCS: 36415; 71046; 80053; 81000; 85025; 85610; 85652; 86850; 86900; 86901; 87081

== ENCOUNTER 2020-12-16 13:00 | Day surgery (SDC) | payer MEDICARE ==
[2020-12-16] VITALS (10 sets, daily range): BP systolic 95–203; BP diastolic 47–91
[~2020-12-16] VITALS: Ht 157 cm; Wt 150.0 kg
[2020-12-16 11:41] LABS: HEMOGLOBIN 14.3 g/dL (11.5-16.0)
[2020-12-16 11:42] LABS: MEAN PLATELET VOLUME 9.8 fL (9.0-12.2)
[2020-12-16 11:51] LABS: INR 1.3 (0.8-1.4); PROTHROMBIN TIME PATIENT 16.9 SEC (12.2-14.7)
[2020-12-16 11:59] LABS: ALANINE AMINOTRANSFERASE 26 U/L (0-55); ALBUMIN 3.8 GM/DL (3.2-4.5); ALKALINE PHOSPHATASE 84 U/L (40-136); BUN/CREATININE RATIO 14; CALCIUM 9.8 MG/DL (8.5-10.1); CARBON DIOXIDE 23 MMOL/L (21-32); CHLORIDE 110 MMOL/L (98-107); CHOLESTEROL 149 MG/DL (< 200); CREATININE SERUM 0.81 MG/DL (0.60-1.30); GFR ESTIMATED > 60; GLUCOSE 125 MG/DL (70-105); HDL CHOLESTEROL 59 MG/DL (40-60); SODIUM 141 MMOL/L (135-145); TOTAL PROTEIN 6.7 GM/DL (6.4-8.2); TRIGLYCERIDES 79 MG/DL (<150); VLDL CHOLESTEROL 16 MG/DL (5-40)
[~2020-12-16 13:00] MED LIST changes: +BACITRACIN INJECTION 50,000 UNIT, SODIUM CHLORIDE 0.9% IRRIGATIO 500 ML IR ONE; +ESCI20TA39 PO; +HEParin (CATH LAB) 1,000 ML IV ONE; +LIDOCAINE 1% INJ 20 ML 20 ML VIAL ONE; -LISI40TA PO; +LISI40TA9 PO; +MIDAZOLAM 5 MG/5 ML (VERSED) VIAL ONE; +NS IV 1000 ML 1,000 ML IV ONE; +NS IV 1000 ML 1,000 ML ONE; +SERT-414 PO; -SERT100T8 PO; +SPIR25TA5 PO; +VANCOMYCIN INJECTION 1,000 MG in NS (IVPB) 250 ML IV ONE; +fentaNYL INJECTION 100 MCG/2 ML AMP ONE
[2020-12-16] MEDS ORDERED: fentaNYL INJECTION 100 MCG/2 ML AMP ONE (13:20)
[2020-12-16] MEDS ORDERED: KETAMINE HCL 100 MG/ML 5 ML VIAL ONE (14:09)
[2020-12-16] MEDS ORDERED: proPOfol 200 MG/20 ML (DIPRIVAN) VIAL IV ONE (14:09)
--- NOTE | 2020-12-16 15:18 | Anesthesia-General Post-Op ---
MAC Patient Condition Mental Status/LOC: Same as Preop Cardiovascular: Satisfactory Nausea/Vomiting: Absent Respiratory: Satisfactory Pain: Controlled Complications: Absent Post Op Complications Complications None Follow Up Care/Instructions Patient Instructions None needed. Anesthesiology Discharge Order Discharge Order Patient is doing well, no complaints, stable vital signs, no apparent adverse anesthesia problems. JABARI HUFFMAN DO Dec 16, 2020 15:18
--- NOTE | 2020-12-16 15:21 | Cardiac Procedure Note-CS/ASA ---
Pre-Procedure Note Pre-Op Procedure Note H&P Reviewed The H&P was reviewed, patient examined and no changes noted. Date H&P Reviewed: Dec 16, 2020 Time H&P Reviewed: 12:30 Conscious Sedation Pre-Proced Time 12:30 ASA Score 3 For ASA 3 and 4: Consider anesthesia and medical clearance. Also, for patients with a history of failed moderate sedation consider anesthesia. Airway Lungs Heart ASA score ASA 1: a normal healthy patient ASA 2: a patient with a mild systemic disease (mid diabetes, controlled hypertension, obesity ASA 3: a patient with a severe systemic disease that limits activity (angina, COPD, prior Myocardial infarction) ASA 4: a patient with an incapacitating disease that is a constant threat to life (CHF, renal failure) ASA 5: a moribund patient not expected to survive 24 hrs. (ruptured aneurysm) ASA 6: a declared brain- patient whose organs are being harvested. For emergent operations, add the letter E after the classification Mallampati Classification Grade 3 Sedation Plan Analgesia, Amnesia, Plan communicated to team members, Discussed options with patient/fam, Discussed risks with patient/fam The patient is an appropriate candidate to undergo the planned procedure, sedation, and anesthesia. The patient immediately re-assessed prior to indication. CHARLINE CAT MD FACP FAC CCDS Dec 16, 2020 15:21
[2020-12-16] MEDS ORDERED: PATIENT MAY USE OWN MEDS, ALL PO SCH (15:30)
[2020-12-16] MEDS ORDERED: oxyCODONE/APAP 5/325MG (PERCOCET 5) TABLET PO PRN (15:30)
[2020-12-16] MEDS: NS IV 1000 ML 1,000 ML IV SCH ×2 (16:34→17:24)
[2020-12-16] MEDS: VANCOMYCIN INJECTION 1,000 MG in NS (IVPB) 250 ML IV SCH (17:24)
--- NOTE | 2020-12-16 17:24 | Diagnostic Imaging Report ---
EXAMINATION: Chest 2 view HISTORY: Post pacemaker placement. COMPARISON: 11/10/2020 FINDINGS: Image side is mis-labeled when compared to multiple prior exams showing normal situs. Heart size is mildly enlarged. A pacemaker is present with leads projecting over the right atrium and right ventricle. No pneumothorax is seen. No edema or pneumonia. No pleural effusion. IMPRESSION: 1. No pneumothorax. Dictated by: Dictated on workstation # [id number]
[2020-12-16] MEDS: ACETAMINOPHEN 325 MG TABLET PO PRN (19:52)
--- NOTE | 2020-12-16 20:13 | OPERATIVE REPORT ---
DATE OF SERVICE: 12/16/2020 PREOPERATIVE DIAGNOSIS: Intermittent long pauses associated with syncope or presyncope. POSTOPERATIVE DIAGNOSIS: Intermittent long pauses associated with syncope or presyncope. PROCEDURE: Dual-chamber pacemaker implantation. ESTIMATED BLOOD LOSS: Less than 25 mL. INDICATIONS: The patient is a 65-year-old lady, who has been experiencing syncope and near syncope. Implantable loop recorder had indicated long sinus pauses associated with symptoms. These persisted even after rate lowering agents were discontinued. Dual chamber pacemaker implantation was carried out today after having obtained an informed consent. DESCRIPTION OF PROCEDURE: She was brought to the cardiac catheterization laboratory in a fasting state. The left prepectoral area was prepared and draped in the usual sterile fashion. Lidocaine 1% was used for local anesthesia. Modified Seldinger technique was used to advance a guidewire into the left subclavian vein and the tip was placed in the right atrium. Sharp and blunt dissection was used to make a pacemaker pocket. The guidewire was used to advance a sheath. The guidewire was removed and replaced with two guidewires. The sheath was removed and each guidewire was then used to advance a sheath and the guidewire was removed and leads were advanced. After lead advancement, the sheaths were removed. All lead manipulation was carried out under fluoroscopy. Good hemostasis was assured. Active fixation leads were used. The right atrial lead is Tendril 2088TC-52 lead with serial #[id number]. This was actively fixed at the right atrial appendage. The right ventricular lead is Tendril [id number]-58 lead with serial #[id number]. This was actively fixed at the high septum. The right atrial sensing is 1.8 millivolts. Impedance is 450 ohms. Capture threshold is 0.5 volts at 0.4 milliseconds. The right ventricular sensing is at 11.8 millivolts. Impedance is 600 ohms. Capture threshold is 0.5 volts at 0.4 milliseconds. The pacemaker has been placed in the DDDR mode with a lower rate of 60 beats per minute and upper rate of 130 beats per minute. She tolerated the procedure well. Job ID: [id number] DocumentID: [id number] Dictated Date: 12/16/2020 15:09:18 Geological Sample Tester Date: 12/16/2020 20:12:50 Dictated By: CHARLINE CAT MD, MA, FACP, FACC,
[2020-12-16] MEDS ORDERED: NON-FORMULARY MEDICATION 1 EA EA (Melatonin/Pyridoxine (Melatonin 5 mg Tablet) 5 MG) PO SCH (21:00)
[2020-12-16] MEDS ORDERED: MELATONIN 10 MG TABLET PO SCH (21:00)
[2020-12-17] MEDS: ACETAMINOPHEN 325 MG TABLET PO PRN ×2 (01:23→08:17)
[2020-12-17 03:31] VITALS: BP 117/55
[2020-12-17] MEDS: VANCOMYCIN INJECTION 1,000 MG in NS (IVPB) 250 ML IV SCH (04:25)
[2020-12-17 04:26] LABS: HEMOGLOBIN 12.6 g/dL (11.5-16.0); MEAN PLATELET VOLUME 10.3 fL (9.0-12.2); WHITE BLOOD COUNT 6.4 10^3/uL (4.3-11.0)
[2020-12-17 04:46] LABS: ALBUMIN 3.2 GM/DL (3.2-4.5)
[2020-12-17 04:47] LABS: CHLORIDE 111 MMOL/L (98-107); POTASSIUM 3.8 MMOL/L (3.6-5.0); SODIUM 138 MMOL/L (135-145)
[2020-12-17 04:48] LABS: CALCIUM 8.6 MG/DL (8.5-10.1)
[2020-12-17 04:49] LABS: GLUCOSE 106 MG/DL (70-105); TOTAL PROTEIN 5.5 GM/DL (6.4-8.2)
[2020-12-17 04:50] LABS: CARBON DIOXIDE 20 MMOL/L (21-32)
[2020-12-17 04:51] LABS: BILIRUBIN,TOTAL 3.5 MG/DL (0.1-1.0)
[2020-12-17 04:52] LABS: ALKALINE PHOSPHATASE 67 U/L (40-136)
[2020-12-17 04:53] LABS: CREATININE SERUM 0.68 MG/DL (0.60-1.30); GFR ESTIMATED > 60
[2020-12-17 04:54] LABS: BUN/CREATININE RATIO 19
[2020-12-17 04:56] LABS: ALANINE AMINOTRANSFERASE 20 U/L (0-55)
[2020-12-17] MEDS ORDERED: ASCORBIC ACID (VIT C) 500 MG TABLET PO SCH (08:00)
[2020-12-17] MEDS ORDERED: FERROUS SULF 325 MG (IRON) TAB PO SCH (08:00)
--- NOTE | 2020-12-17 08:06 | Progress Note - Cardiology ---
Cardiology SOAP Progress Note Objective: I&O/Vital Signs 12/16/20 12/17/20 12/17/20 23:06 01:00 03:31 Temp 37.0 36.6 Pulse 69 67 66 Resp 22 22 B/P (MAP) 112/53 (72) 117/55 (75) Pulse Ox 95 95 O2 Delivery NIV CPAP Room Air 12/17/20 00:00 Intake Total 1090 ml Output Total 250 ml Balance 840 ml Weight (Pounds): 306 Weight (Ounces): 0.0 Weight (Calculated Kilograms): 138.662245 Results/Procedures: Labs Laboratory Tests 12/16/20 11:04: White Blood Count 6.0, Red Blood Count 4.29, Hemoglobin 14.3, Hematocrit 42, Mean Corpuscular Volume 99, Mean Corpuscular Hemoglobin 33, Mean Corpuscular Hemoglobin Concent 34, Red Cell Distribution Width 13.7, Platelet Count 85L, Mean Platelet Volume 9.8, Prothrombin Time 16.9H, INR Comment 1.3, Activated Partial Thromboplast Time 40H, Sodium Level 141, Potassium Level 4.0, Chloride Level 110H, Carbon Dioxide Level 23, Anion Gap 8, Blood Urea Nitrogen 11, Creatinine 0.81, Estimat Glomerular Filtration Rate > 60, BUN/Creatinine Ratio 14, Glucose Level 125H, Calcium Level 9.8, Corrected Calcium 10.0, Total Bilirubin 3.0H, Aspartate Amino Transf (AST/SGOT) 31, Alanine Aminotransferase (ALT/SGPT) 26, Alkaline Phosphatase 84, Total Protein 6.7, Albumin 3.8, Triglycerides Level 79, Cholesterol Level 149, LDL Cholesterol Direct 71, VLDL Cholesterol 16, HDL Cholesterol 59 12/17/20 03:58: White Blood Count 6.4, Red Blood Count 3.75L, Hemoglobin 12.6, Hematocrit 37, Mean Corpuscular Volume 99, Mean Corpuscular Hemoglobin 34, Mean Corpuscular Hemoglobin Concent 34, Red Cell Distribution Width 13.6, Platelet Count 78L, Mean Platelet Volume 10.3, Sodium Level 138, Potassium Level 3.8, Chloride Level 111H, Carbon Dioxide Level 20L, Anion Gap 7, Blood Urea Nitrogen 13, Creatinine 0.68, Estimat Glomerular Filtration Rate > 60, BUN/Creatinine Ratio 19, Glucose Level 106H, Calcium Level 8.6, Corrected Calcium 9.2, Total Bilirubin 3.5H, Aspartate Amino Transf (AST/SGOT) 26, Alanine Aminotransferase (ALT/SGPT) 20, Alkaline Phosphatase 67, Total Protein 5.5L, Albumin 3.2 Microbiology 12/16/20 MRSA Screen - Final, Complete MRSA not isolated A/P: Assessment: S/P Dual-chamber pacemaker implantation on 12-16-20 Palpitations: Holter of 11/13/18 showed NSR with PACs and PVCs and episodes of vent bigeminy, clinically improved after increase in beta-blockers S/P ILR implant on Aug 19, 2020 d/t report of palpitations and syncope - pauses of up to 5 sec on tele in Aug and Sep 2020 (improved after cessation of beta-paris then) - 4 second pause on 11/21/20 (without her being on any rate-lowering agents) H/o diastolic CHF, currently clinically compensated Card cath of February 2019: no significant CAD, LVEF 60%, elevated LVEDP Obesity with BMI approx 56 DM II Hypertension, labile Chronic low back pain H/o colon mass removal (benign) and subsequent surgery for small intestinal obstruction for which she underwent partial small intestine removal, according to her. This was in or around 2014 NGUYEN, treated with CPAP Hepatic cirrhosis of undetermined etiology, followed and managed by Dr Mcduffie at [facility] Echo of 01/05/19: mild conc LVH, LVEF 55-65%, dilated LA, mild MR Fam h/o early CAD (father of [place] at age 54) AVIVA ETIENNE Dec 17, 2020 08:06
[2020-12-17 08:10] VITALS: BP 104/51
[2020-12-17] MEDS ORDERED: LEVOTHYROXINE 100 MCG (LEVOTHROID) TAB PO SCH (09:00)
[2020-12-17] MEDS ORDERED: NON-FORMULARY MEDICATION 1 EA EA (Ferrous Sulfate 325 MG) PO SCH (09:00)
[2020-12-17] MEDS ORDERED: VITAMIN D3 25 MCG (1,000 UNITS) TABLET PO SCH (09:00)
[2020-12-17] MEDS ORDERED: NON-FORMULARY MEDICATION 1 EA EA (Cholecalciferol (Vitamin D3) (Vitamin D3) 100 MCG) PO SCH (09:00)
[2020-12-17] MEDS ORDERED: NON-FORMULARY MEDICATION 1 EA EA (Ascorbate Calcium (Vitamin C) 500 MG) PO SCH (09:00)
[2020-12-17] MEDS ORDERED: SPIRONOLACTONE 25 MG (ALDACTONE) TAB PO SCH (09:00)
[2020-12-17] MEDS ORDERED: eZETimibe 10 MG (ZETIA) TABLET PO SCH (09:00)
[2020-12-17] MEDS ORDERED: NON-FORMULARY MEDICATION 1 EA EA (Escitalopram Oxalate 20 MG) PO SCH (09:00)
[2020-12-17] MEDS ORDERED: CIPR-225 PO (09:29)
--- NOTE | 2020-12-17 09:33 | Discharge Inst-Cardiology ---
Discharge Inst-Cardiac Discharge Medications New Medications: Ciprofloxacin HCl (Cipro) 500 Mg Tablet 500 MG PO BID for 3 Days, #6 TAB 0 Refills Continued Medications: Acetaminophen (Tylenol) 325 Mg Tablet 325 MG PO PRN, TAB Ascorbate Calcium (Vitamin C) 500 Mg Tablet 500 MG PO DAILY, TAB Cholecalciferol (Vitamin D3) (Vitamin D3) 50 Mcg Tablet 100 MCG PO DAILY, TAB Cyanocobalamin (Cyanocobalamin Injection) 1,000 Mcg/Ml Inj 1000 MCG IJ MONTHLY, VIAL Escitalopram Oxalate (Escitalopram Oxalate) 20 Mg Tablet 20 MG PO DAILY, TAB Ezetimibe (Zetia) 10 Mg Tablet 10 MG PO DAILY, TAB Ferrous Sulfate (Ferrous Sulfate) 325 Mg Tablet.dr 325 MG PO DAILY, TAB Levothyroxine Sodium (Levothyroxine Sodium) 100 Mcg Tablet 100 MCG PO DAILY, TAB Melatonin/Pyridoxine (Melatonin 5 mg Tablet) 1 Each Tablet 5 MG PO HS, TAB Spironolactone (Spironolactone) 25 Mg Tablet 25 MG PO DAILY, TAB New, Converted or Re-Newed RX: Transmitted to Pharmacy Patient Instructions Patient Instructions: Appointment at Dr. Thompson's office on Tuesday at 9:00 for dressing change to the pacemaker site Please schedule follow up appointment to be seen in office in 4 weeks AVIVA ETIENNE Dec 17, 2020 09:33
--- NOTE | 2020-12-17 18:25 | Progress Note - Cardiology ---
Cardiology SOAP Progress Note Subjective: No cp or palp or syncope or shortness of breath No significant discomfort at site of device No focal weakness No n/v/d Objective: I&O/Vital Signs 12/17/20 12/17/20 08:10 09:24 Temp 36.8 Pulse 68 Resp 18 B/P (MAP) 104/51 (68) Pulse Ox 94 94 O2 Delivery Room Air Room Air 12/17/20 00:00 Intake Total 1090 ml Output Total 250 ml Balance 840 ml Weight (Pounds): 306 Weight (Ounces): 0.0 Weight (Calculated Kilograms): 138.346427 Device Insertion Site: without hematoma Bruising: mild bruising Constitutional: AAO x 3, well-developed, well-nourished Respiratory: No accessory muscle use; other (good bilateral air entry) Cardiovascular: regular rate-rhythm, S1 and S2, systolic murmur (soft ANTOINETTE at card base) Gastrointestional: No tender; soft; No guarding, No rebound; audible bowel sounds Extremities: No clubbing, No cyanosis, No significant edema Neurologic/Psychiatric: oriented x 3, other (moves all limbs equally, we did not move the L arm ) Skin: No rash on exposed areas, No ulcerations on exposed areas Results/Procedures: Labs Laboratory Tests 12/17/20 03:58: White Blood Count 6.4, Red Blood Count 3.75L, Hemoglobin 12.6, Hematocrit 37, Mean Corpuscular Volume 99, Mean Corpuscular Hemoglobin 34, Mean Corpuscular Hemoglobin Concent 34, Red Cell Distribution Width 13.6, Platelet Count 78L, Mean Platelet Volume 10.3, Sodium Level 138, Potassium Level 3.8, Chloride Level 111H, Carbon Dioxide Level 20L, Anion Gap 7, Blood Urea Nitrogen 13, Creatinine 0.68, Estimat Glomerular Filtration Rate > 60, BUN/Creatinine Ratio 19, Glucose Level 106H, Calcium Level 8.6, Corrected Calcium 9.2, Total Bilirubin 3.5H, Aspartate Amino Transf (AST/SGOT) 26, Alanine Aminotransferase (ALT/SGPT) 20, Alkaline Phosphatase 67, Total Protein 5.5L, Albumin 3.2 Microbiology 12/16/20 MRSA Screen - Final, Complete MRSA not isolated Laboratory Tests 12/16/20 11:04 12/17/20 03:58 A/P: Assessment: Sinus node dysfunction S/P ILR implant on Aug 19, 2020 d/t report of palpitations and syncope Symptomatic bradycardia and long asystolic pauses persistent after d/c rate- lower meds, treated with dual-chamber pacemaker implantation on 12-16-20 H/o diastolic CHF, currently clinically compensated Card cath of February 2019: no significant CAD, LVEF 60%, elevated LVEDP Obesity with BMI approx 56 DM II Hypertension, labile Chronic low back pain H/o colon mass removal (benign) and subsequent surgery for small intestinal obstruction for which she underwent partial small intestine removal, according to her. This was in or around 2014 NGUYEN, treated with CPAP Hepatic cirrhosis of undetermined etiology, followed and managed by Dr Mcduffie at [facility] Echo of 01/05/19: mild conc LVH, LVEF 55-65%, dilated LA, mild MR Fam h/o early CAD (father of [place] at age 54) Plan: * I discussed post-op care with her * Advised compliance with meds * Close outpt f/u * Questions answered CHARLINE CAT MD FACP [facility] Dec 17, 2020 18:25
== END 2020-12-17 10:42 | disposition home or self-care (01) ==
LOC: CSD 15:50 → CATH 12-17 10:42
PROVIDERS: ATTEND Internal Medicine Cardiovascular Disease
DX: I49.5 Sick sinus syndrome (principal); E11.9 Type 2 diabetes mellitus without complications; I49.3 Ventricular premature depolarization; I11.0 Hypertensive heart disease with heart failure; I50.32 Chronic diastolic (congestive) heart failure; G47.33 Obstructive sleep apnea (adult) (pediatric); K74.60 Unspecified cirrhosis of liver; E66.9 Obesity, unspecified; R55 Syncope and collapse; Z68.44 Body mass index [BMI] 60.0-69.9, adult; Z88.7 Allergy status to serum and vaccine; Z88.1 Allergy status to other antibiotic agents; Z88.5 Allergy status to narcotic agent; Z88.0 Allergy status to penicillin; Z88.2 Allergy status to sulfonamides; Z88.8 Allergy status to other drugs, medicaments and biological substances; Z98.890 Other specified postprocedural states; Z90.49 Acquired absence of other specified parts of digestive tract
CPT/HCPCS: 33208; 71046; 80053 ×2; 80061; 85027 ×2; 85610; 85730; 87081; 93005 ×2; C1785; C1898 ×2; 36415

== ENCOUNTER 2021-01-26 10:45 | Emergency (ER) | payer MEDICARE, OTHER ==
[~2021-01-26] VITALS: Ht 160 cm; Wt 149.0 kg
[~2021-01-26 10:45] MED LIST changes: -CATHETER FLUSH 10 ML SYR IV PRN; -HOLD METFORMIN - RECEIVED CONTRAST 20 ML VIAL IV SCH; -IOHEXOL 350 MG/ML 100 ML (OMNIPAQUE 350) VIAL IV ONE; -METO-352 PO; -NS 100 ML (IVPB) BAG IV ONE
--- NOTE | 2021-01-26 11:13 | ED Chest Pain ---
General Chief Complaint: Chest Pain Stated Complaint: CHEST PAIN Source: patient Exam Limitations: no limitations History of Present Illness Date Seen by Provider: Jan 26, 2021 Time Seen by Provider: 10:47 Initial Comments Here with 15 to 20 minutes of central chest discomfort and right arm pain. Onset when she came in to get outpatient CT scan done. This was after activity. She rested for a few minutes and then was able to get the CT scan. After the scan, she had some persistence. She was asked by the techs to come to the emergency department before the scan and she did not want to. Afterwards she rested for a while and then decided that it would be in her best interest and then did present. Denies nausea, vomiting, sweating or significant breathing problems but does admit to weakness, dizziness and chest pressure currently. St ates the pressure is moderate. Pain started left sided and then went to the right and then radiated to her right arm. She has had previous procedures done including pacemaker placement in early December. She has had previous heart caths per the patient that did not result in stenting. She does have history of low platelets and for that does not take aspirin or other anticoagulants. Her platelet count has been as low as the 30s. She is unsure what it is currently. Patient notes that her blood pressure is high which is abnormal for her. She is not on blood pressure medicine. Timing/Duration: 1/2 hour, changing over time Severity/Quality: moderate, pressure Location: central Radiation: arms (Right) Prior CP/Workup: cardiac cath, echocardiography Modifying Factors: worse with exercise; improves with rest ASA po STITCHING DEPARTMENT SUPERVISOR: No (Unable to take) NTG SL STITCHING DEPARTMENT SUPERVISOR: No Associated Symptoms: No abdominal pain, No back pain, No diaphoresis; dizziness; No edema, No fever/chills, No nausea/vomiting, No shortness of breath; weakness Allergies and Home Medications Allergies Coded Allergies: Penicillins (Verified Allergy, Intermediate, HIVES, 05/18/17) Sulfa (Sulfonamide Antibiotics) (Verified Allergy, Intermediate, HIVES, 05/18/17) adhesive tape (Verified Allergy, Intermediate, HIVES, 05/18/17) tetanus and diphtheria toxoids (Verified Allergy, Intermediate, HIVES, 05/18/17) Influenza Virus Vaccines (Verified Adverse Reaction, Mild, NAUSEA, 05/18/17) atorvastatin (Verified Adverse Reaction, Mild, NAUSEA, 05/18/17) hydromorphone (Verified Adverse Reaction, Mild, hallucinations, 05/18/17) morphine (Verified Adverse Reaction, Mild, hallcination, 05/18/17) simvastatin (Verified Adverse Reaction, Mild, NAUSEA, 05/18/17) Uncoded Allergies: myocins (Allergy, Unknown, NAUSEA, 12/02/15) Home Medications Acetaminophen 325 Mg Tablet, 325 MG PO PRN, (Reported) Ascorbate Calcium 500 Mg Tablet, 500 MG PO DAILY, (Reported) Cholecalciferol (Vitamin D3) 50 Mcg Tablet, 100 MCG PO DAILY, (Reported) Ciprofloxacin HCl 500 Mg Tablet, 500 MG PO BID Prescribed by: AVIVA ETIENNE on 12/17/20 0929 Cyanocobalamin 1,000 Mcg/Ml Inj, 1,000 MCG IJ MONTHLY, (Reported) Escitalopram Oxalate 20 Mg Tablet, 20 MG PO DAILY, (Reported) Ezetimibe 10 Mg Tablet, 10 MG PO DAILY, (Reported) Ferrous Sulfate 325 Mg Tablet.dr, 325 MG PO DAILY, (Reported) Levothyroxine Sodium 100 Mcg Tablet, 100 MCG PO DAILY, (Reported) Melatonin/Pyridoxine 1 Each Tablet, 5 MG PO HS, (Reported) Metoprolol Succinate 50 Mg Tab.er.24h, 50 MG PO DAILY Prescribed by: HALEIGH BURRIS on 01/26/21 1334 Spironolactone 25 Mg Tablet, 25 MG PO DAILY, (Reported) Patient Home Medication List Home Medication List Reviewed: Yes Review of Systems Review of Systems Constitutional: see HPI EENTM: No Nose Congestion, No Throat Pain Respiratory: Denies Cough, Denies Shortness of Air Cardiovascular: See HPI Gastrointestinal: No Symptoms Reported Genitourinary: No Symptoms Reported Musculoskeletal: muscle pain, muscle weakness Skin: no symptoms reported Psychiatric/Neurological: No Symptoms Reported All Other Systems Reviewed Negative Unless Noted: Yes Past [id number] Hx Past Med/Social Hx: Reviewed Nursing Past Med/Soc Hx Patient Social History Alcohol Use: Denies Use 2nd Hand Smoke Exposure: No Recent Hopitalizations: No Seasonal Allergies Seasonal Allergies: Yes Past Medical History Surgeries: Yes (right tkr x2, JUNIE HEEL SPUR, mass removed from colon, COLECTOMY, R knee sco) Appendectomy, Hysterectomy, Thyroidectomy Respiratory: Yes (uses cpap) Sleep Apnea Currently Using CPAP: Yes Currently Using BIPAP: No Cardiac: Yes High Cholesterol Neurological: No Reproductive Disorders: No COKEMAN History: Hysterectomy Sexually Transmitted Disease: No HIV/AIDS: No Genitourinary: No Gastrointestinal: Yes (benign colon mass removed, enlarged spleen) Chronic Diarrhea, Cirrhosis Musculoskeletal: Yes Osteoporosis, Arthritis Endocrine: Yes (diet controlled diabetes) Hypothyroidsim HEENT: Yes (GLASSES) Loss of Vision: Denies Hearing Impairment: Denies Cancer: No Psychosocial: Yes Anxiety, Depression Integumentary: No Blood Disorders: Yes (HX ANEMIA) Adverse Reaction/Blood Tranf: No (HAS HAD BLOOD WITH NO REACTION) Family Medical History Reviewed Nursing Family Hx No Pertinent Family Hx Physical Exam Vital Signs Vital Signs - First Documented 01/26/21 01/26/21 10:45 11:05 Temp 36.8 Pulse 72 Resp 18 B/P (MAP) 173/71 (105) Pulse Ox 99 O2 Delivery Room Air O2 Flow Rate 0 Capillary Refill : Less Than 3 Seconds Height, Weight, BMI Height: 5'2.00" Weight: 306lbs. 0.0oz. 138.474700mr; 60.85 BMI Method:Stated General Appearance: No Apparent Distress, Obese HEENT: PERRL/EOMI Neck: Non Tender, Supple Respiratory: Lungs Clear, Normal Breath Sounds, Other (Tender and fullness noted at pacemaker site pocket with surgical incision clean, dry and intact.) Cardiovascular: Regular Rate, Rhythm, No Murmur Gastrointestinal: Non Tender, Soft Extremity: Normal Range of Motion, Non Tender, No Calf Tenderness, No Pedal Edema Neurologic/Psychiatric: Alert, Oriented x3 Skin: Warm/Dry, Ecchymosis (On lower abdomen on both right and left sides. Patient states these areas are actually better than previous.) Progress/Results/Core Measures Results/Orders Lab Results Laboratory Tests Test 01/26/21 10:57 01/26/21 13:30 Range/Units White Blood Count 5.7 4.3-11.0 10^3/uL Red Blood Count 3.87 L 4.35-5.85 10^6/uL Hemoglobin 13.0 11.5-16.0 G/DL Hematocrit 38 35-52 % Mean Corpuscular Volume 98 80-99 FL Mean Corpuscular Hemoglobin 34 25-34 PG Mean Corpuscular Hemoglobin Concent 34 32-36 G/DL Red Cell Distribution Width 13.2 10.0-14.5 % Platelet Count 98 L 130-400 10^3/uL Mean Platelet Volume 9.8 7.4-10.4 FL Immature Granulocyte % (Auto) 0 % Neutrophils (%) (Auto) 64 42-75 % Lymphocytes (%) (Auto) 23 12-44 % Monocytes (%) (Auto) 6 0-12 % Eosinophils (%) (Auto) 6 0-10 % Basophils (%) (Auto) 1 0-10 % Neutrophils # (Auto) 3.6 1.8-7.8 X 10^3 Lymphocytes # (Auto) 1.3 1.0-4.0 X 10^3 Monocytes # (Auto) 0.4 0.0-1.0 X 10^3 Eosinophils # (Auto) 0.3 0.0-0.3 10^3/uL Basophils # (Auto) 0.1 0.0-0.1 10^3/uL Immature Granulocyte # (Auto) 0.0 0.0-0.1 10^3/uL Prothrombin Time 16.0 H 12.2-14.7 SEC INR Comment 1.3 0.8-1.4 Activated Partial Thromboplast Time 37 H 24-35 SEC Sodium Level 139 135-145 MMOL/L Potassium Level 4.1 3.6-5.0 MMOL/L Chloride Level 109 H 98-107 MMOL/L Carbon Dioxide Level 22 21-32 MMOL/L Anion Gap 8 5-14 MMOL/L Blood Urea Nitrogen 17 7-18 MG/DL Creatinine 0.66 0.60-1.30 MG/DL Estimat Glomerular Filtration Rate > 60 BUN/Creatinine Ratio 26 Glucose Level 126 H 70-105 MG/DL Calcium Level 9.7 8.5-10.1 MG/DL Corrected Calcium 10.1 8.5-10.1 MG/DL Magnesium Level 1.4 L 1.6-2.4 MG/DL Total Bilirubin 2.1 H 0.1-1.0 MG/DL Aspartate Amino Transf (AST/SGOT) 30 5-34 U/L Alanine Aminotransferase (ALT/SGPT) 20 0-55 U/L Alkaline Phosphatase 85 40-136 U/L Myoglobin 54.4 10.0-92.0 NG/ML Troponin I < 0.30 < 0.30 <0.30 NG/ML C-Reactive Protein 0.56 H <0.50 MG/DL Total Protein 6.2 L 6.4-8.2 GM/DL Albumin 3.5 3.2-4.5 GM/DL My Orders Orders - HALEIGH BURRIS MD Cbc With Automated Diff (01/26/21 11:01) Magnesium (01/26/21 11:01) Chest 1 View Ap/Pa Only (01/26/21 11:01) Ekg Tracing (01/26/21 11:01) Comprehensive Metabolic Panel (01/26/21 11:01) Myoglobin Serum (01/26/21 11:01) Protime With Inr (01/26/21 11:01) Partial Thromboplastin Time (01/26/21 11:01) O2 (01/26/21 11:01) Monitor-Rhythm Ecg Trace Only (01/26/21 11:01) Lipid Panel (01/27/21 06:00) Ed Iv/Invasive Line Start (01/26/21 11:01) Troponin I Fs (01/26/21 11:01) Crp Fs (01/26/21 11:01) Nitroglycerin 0.4 Mg Btl 25's (Nitrostat (01/26/21 11:15) Metoprolol Succinate (Xl) Tab (Toprol Xl (01/26/21 13:30) Troponin I Fs (01/26/21 13:18) Medications Given in ED Current Medications Medications Dose Ordered Sig/Sandi Route Start Time Stop Time Status Last Admin Dose Admin Nitroglycerin 0.4 mg UD PRN SL 01/26/21 11:15 01/26/21 11:32 DC 01/26/21 11:32 0.4 MG Vital Signs/I&O 01/26/21 01/26/21 10:45 11:05 Temp 36.8 Pulse 72 Resp 18 B/P (MAP) 173/71 (105) Pulse Ox 99 O2 Delivery Room Air Room Air O2 Flow Rate 0 Progress Progress Note : Progress Note Seen and evaluated. Chest pain protocol initiated. We are unable to do aspirin due to patient's platelet dysfunction. She has been instructed by Dr. Thompson not to take aspirin. We will give nitro for chest pressure blood pressure 160s over 70s. Monitor patient. 1330: Patient remains pain-free. Blood pressure ranges 150s to 160s systolic over 70s. I did discuss the case with Dr. Thompson. We will initiate Toprol-XL 50 mg p.o. now and repeat troponin. If troponin stays negative, patient can be safely discharged with follow-up with him next week. This was discussed with the patient and family who agree. I will send a copy of the chart to him. We will prescribe the Toprol-XL through the apothecary clinic here. Monitor patient. 1403: Repeat troponin negative. Patient still without chest pain. Blood pressure 149/67 with heart rate 64. I did rediscuss with her about discharge and follow-up and she is still okay with that plan. Discharged home with return precautions. Patient verbalized understanding of instructions and agreement with plan. Initial ECG Impression Date: Jan 26, 2021 Initial ECG Impression Time: 10:48 Initial ECG Rate: 72 Initial ECG Rhythm: Normal Sinus Comment Sinus rhythm with normal axis. No evidence of ST elevation PA. Similar to previous of 12/17/2020. Interpreted by me. Diagnostic Imaging Diagonstic Imaging: Xray Plain Films/CT/US/NM/MRI: chest Comments Stable cardiomegaly with unchanged pacemaker device. No acute infiltrate or pleural fluid. Departure Impression Primary Impression: Chest pain Qualified Codes: R07.9 - Chest pain, unspecified Additional Impression: Uncontrolled hypertension Disposition: HOME, SELF-CARE Condition: Improved Departure-Patient Inst. Decision time for Depature: 14:05 Referrals: BRENTON DORAN MD (PCP/Family) Primary Care Physician CHARLINE THOMPSON MD [facility] Patient Instructions: Chest Pain (DC), High Blood Pressure (DC) Add. Discharge Instructions: All discharge instructions reviewed with patient and/or family. Voiced understanding. Take medications as directed. Follow-up with Dr. Thompson next week for recheck and further evaluation. Call his office today. it application support analyst your prescription and begin taking that tomorrow. You did have your first dose of blood pressure medicine today. Continue home medications as previously prescribed. Return for worse pain, chest pain, breathing problems, weakness, vomiting, dizziness or other concerns as needed. Scripts Metoprolol Succinate (Toprol Xl) 50 Mg Tab.er.24h 50 MG PO DAILY for 30 Days, #30 TAB 0 Refills Prov: HALEIGH BURRIS MD 01/26/21 Copy Copies To 1: CHARLINE THOMPSON MD FACP [facility] HALEIGH BURRIS MD Jan 26, 2021 11:12
[2021-01-26 11:19] LABS: BASOPHILS # (AUTO) 0.1 10^3/uL (0.0-0.1); BASOPHILS % (AUTO) 1 % (0-10); EOSINOPHILS # (AUTO) 0.3 10^3/uL (0.0-0.3); EOSINOPHILS % (AUTO) 6 % (0-10); HEMATOCRIT 38 % (35-52); LYMPHOCYTES # (AUTO) 1.3 X 10^3 (1.0-4.0); LYMPHOCYTES % (AUTO) 23 % (12-44); MEAN CORPUSCULAR HEMOGLOBIN 34 PG (25-34); MEAN CORPUSCULAR HGB CONC 34 G/DL (32-36); MEAN CORPUSCULAR VOLUME 98 FL (80-99); MEAN PLATELET VOLUME 9.8 FL (7.4-10.4); MONOCYTES # (AUTO) 0.4 X 10^3 (0.0-1.0); MONOCYTES % (AUTO) 6 % (0-12); NEUTROPHILS # (AUTO) 3.6 X 10^3 (1.8-7.8); NEUTROPHILS % (AUTO) 64 % (42-75); PLATELET COUNT 98 10^3/uL (130-400); WHITE BLOOD COUNT 5.7 10^3/uL (4.3-11.0)
[2021-01-26] MEDS: NITROGLYCERIN 0.4 MG SL TABS BTL 25'S SL PRN ×3 (11:19→11:32)
[2021-01-26 11:28] LABS: INR 1.3 (0.8-1.4)
[2021-01-26 11:33] LABS: CARBON DIOXIDE 22 MMOL/L (21-32); CHLORIDE 109 MMOL/L (98-107); POTASSIUM 4.1 MMOL/L (3.6-5.0); SODIUM 139 MMOL/L (135-145)
[2021-01-26 11:34] LABS: ALANINE AMINOTRANSFERASE 20 U/L (0-55); ALBUMIN 3.5 GM/DL (3.2-4.5); ALKALINE PHOSPHATASE 85 U/L (40-136); BILIRUBIN,TOTAL 2.1 MG/DL (0.1-1.0); BUN/CREATININE RATIO 26; CALCIUM 9.7 MG/DL (8.5-10.1); CREATININE SERUM 0.66 MG/DL (0.60-1.30); GFR ESTIMATED > 60; GLUCOSE 126 MG/DL (70-105); MAGNESIUM 1.4 MG/DL (1.6-2.4); TOTAL PROTEIN 6.2 GM/DL (6.4-8.2)
[2021-01-26] MEDS ORDERED: meTOproloL SUCCINATE 50 MG (TOPROL XL) TAB PO SCH (13:30)
[2021-01-26] MEDS ORDERED: METO-352 PO (13:34)
--- NOTE | 2021-01-26 13:46 | Diagnostic Imaging Report ---
INDICATION: Chest pain. TECHNIQUE/COMPARISON: A frontal chest was obtained at 11:01 AM and compared to 12/16/2020. FINDINGS: There is cardiomegaly with unchanged pacemaker device. There is no focal infiltrate, pneumothorax, or pleural fluid. There is no interstitial edema. IMPRESSION: Stable cardiomegaly with unchanged pacemaker device. No acute infiltrate or pleural fluid. Dictated by: Dictated on workstation # [id number]
[2021-01-26 14:27] VITALS: BP 156/90
== END 2021-01-26 14:29 | disposition home or self-care (01) ==
LOC: EDUNIT# 10:45 → ER FS 10:47
DX: R07.9 Chest pain, unspecified (principal); I10 Essential (primary) hypertension; E66.9 Obesity, unspecified; F41.9 Anxiety disorder, unspecified; F32.9 Major depressive disorder, single episode, unspecified; E78.00 Pure hypercholesterolemia, unspecified; E03.9 Hypothyroidism, unspecified; Z68.44 Body mass index [BMI] 60.0-69.9, adult; Z79.890 Hormone replacement therapy; Z88.0 Allergy status to penicillin; Z88.2 Allergy status to sulfonamides; Z88.7 Allergy status to serum and vaccine; Z88.5 Allergy status to narcotic agent; Z88.8 Allergy status to other drugs, medicaments and biological substances; Z95.9 Presence of cardiac and vascular implant and graft, unspecified
CPT/HCPCS: 36415; 71045; 80053; 83735; 83874; 84484; 85025; 85610; 85730; 86141; 93005; 93041

== ENCOUNTER → 2021-01-26 | Outpatient (CLI) | payer MEDICARE, OTHER ==
[~2021-01-26] MED LIST changes: -BACITRACIN INJECTION 50,000 UNIT, SODIUM CHLORIDE 0.9% IRRIGATIO 500 ML IR ONE; +CATHETER FLUSH 10 ML SYR IV PRN; +CIPR-225 PO; -HEParin (CATH LAB) 1,000 ML IV ONE; +HOLD METFORMIN - RECEIVED CONTRAST 20 ML VIAL IV SCH; +IOHEXOL 350 MG/ML 100 ML (OMNIPAQUE 350) VIAL IV ONE; -LIDOCAINE 1% INJ 20 ML 20 ML VIAL ONE; +METO-352 PO; -MIDAZOLAM 5 MG/5 ML (VERSED) VIAL ONE; +NS 100 ML (IVPB) BAG IV ONE; -NS IV 1000 ML 1,000 ML IV ONE; -NS IV 1000 ML 1,000 ML ONE; -VANCOMYCIN INJECTION 1,000 MG in NS (IVPB) 250 ML IV ONE; -fentaNYL INJECTION 100 MCG/2 ML AMP ONE
--- NOTE | 2021-01-26 13:45 | Diagnostic Imaging Report ---
EXAMINATION: CT Abdomen with and without intravenous contrast. TECHNIQUE: Precontrast acquisitions were acquired through the abdomen . Multiple contiguous axial images were obtained through the abdomen after the administration of intravenous contrast. All CT scans use one or more of the following dose optimizing techniques: automated exposure control, MA and/or KvP adjustment based on a patient size and exam type, or iterative reconstruction. HISTORY: Cirrhosis. COMPARISON: 07/30/2016. FINDINGS: Limited views of the lower thorax show pacemaker leads. Liver is cirrhotic. No focal liver lesions are seen. There is no biliary ductal dilation. Gallbladder is surgically absent. Pancreas is normal. Spleen is enlarged. Adrenal glands are normal. The kidneys are normal. There is no hydronephrosis. Visualized bowel is normal in caliber without obstruction or inflammation. There is a right hemicolectomy. No free fluid or air. No abdominal lymphadenopathy. Aorta is normal in caliber without aneurysm. There are no suspicious osseus lesions. IMPRESSION: Cirrhotic liver without suspicious lesion. Dictated by: Dictated on workstation # [id number]
== END ==
LOC: RAD FS 09:41
PROVIDERS: ATTEND Family Medicine
DX: K74.69 Other cirrhosis of liver (principal)
CPT/HCPCS: 74170

== ENCOUNTER 2021-06-11 10:51 | Emergency (ER) | payer MEDICARE ==
[~2021-06-11] VITALS: Ht 160 cm; Wt 151.0 kg
[~2021-06-11 10:51] MED LIST changes: +METO-352 PO
[2021-06-11] MEDS ORDERED: methylPREDNISolone 125 MG (Solu-MEDROL) VIAL IV STA (11:03)
[2021-06-11 11:45] LABS: BASOPHILS % (AUTO) 1 % (0-10); MEAN CORPUSCULAR VOLUME 103 fL (80-99); MEAN PLATELET VOLUME 11.1 fL (9.0-12.2)
[2021-06-11 11:47] LABS: ALBUMIN 3.6 GM/DL (3.2-4.5); EOSINOPHILS # (AUTO) 0.3 10^3/uL (0.0-0.3); EOSINOPHILS % (AUTO) 6 % (0-10); HEMATOCRIT 41 % (35-52); HEMOGLOBIN 13.6 g/dL (11.5-16.0); LYMPHOCYTES # (AUTO) 1.6 10^3/uL (1.0-4.0); LYMPHOCYTES % (AUTO) 29 % (12-44); MEAN CORPUSCULAR HEMOGLOBIN 34 pg (25-34); MEAN CORPUSCULAR HGB CONC 34 g/dL (32-36); MONOCYTES # (AUTO) 0.4 10^3/uL (0.0-1.0); MONOCYTES % (AUTO) 7 % (0-12); NEUTROPHILS # (AUTO) 3.1 10^3/uL (1.8-7.8); NEUTROPHILS % (AUTO) 57 % (42-75); PLATELET COUNT 78 10^3/uL (130-400); WHITE BLOOD COUNT 5.5 10^3/uL (4.3-11.0)
[2021-06-11 11:49] LABS: CALCIUM 10.2 MG/DL (8.5-10.1)
[2021-06-11 11:50] LABS: TOTAL PROTEIN 6.7 GM/DL (6.4-8.2)
[2021-06-11 11:52] LABS: BILIRUBIN,TOTAL 2.7 MG/DL (0.1-1.0)
[2021-06-11 11:54] LABS: CREATININE SERUM 0.83 MG/DL (0.60-1.30)
--- NOTE | 2021-06-11 12:59 | ED General ---
General Chief Complaint: Allergic Reaction Stated Complaint: ALLERGIC REACTION 2ND COVID VACINATION Nursing Triage Note: allergic reaction to 2nd COVID shot. patient recieved epi x 2 doses, benadryl, while she was at the [facility]. patient shaky and cold. Source of Information: Patient Exam Limitations: No Limitations History of Present Illness Date Seen by Provider: Jun 11, 2021 Time Seen by Provider: 11:00 Initial Comments Here by EMS with report of anaphylactic reaction after second Covid vaccination today. She had the immunization and about 10 minutes later started having feeling of swelling in her throat. She was in the waiting room at [facility]. She ultimately got a dose of epinephrine. She started feeling worse and got a second dose of epinephrine. Both doses are 0.3 mg IM. She also got 50 mg of Benadryl IM and took 20 mg of Pepcid p.o. EMS was summoned. On their arrival, IV established. Patient tachycardic in the 150s and this slowed. Patient is on metoprolol daily. Overall feeling better now but shaky. Patient previously has had vaccination reactions to influenza and tetanus. She did fine on her first dose with the second dose seems to have caused a reaction. Denies nausea, vomiting or abdominal pain. No hives noted. Presented mostly with throat swelling and weakness/difficulty breathing. That has also resolved now. Timing/Duration: 1/2 Hour Severity: Moderate, Severe Modifying Factors: improves with Medication Associated Systoms: No Chest Pain, No Cough, No Diaphoresis, No Nausea/Vomiting; Shortness of Air, Weakness Allergies and Home Medications Allergies Coded Allergies: Penicillins (Verified Allergy, Intermediate, HIVES, 05/18/17) Sulfa (Sulfonamide Antibiotics) (Verified Allergy, Intermediate, HIVES, 05/18/17) adhesive tape (Verified Allergy, Intermediate, HIVES, 05/18/17) tetanus and diphtheria toxoids (Verified Allergy, Intermediate, HIVES, 05/18/17) Influenza Virus Vaccines (Verified Adverse Reaction, Mild, NAUSEA, 05/18/17) atorvastatin (Verified Adverse Reaction, Mild, NAUSEA, 05/18/17) hydromorphone (Verified Adverse Reaction, Mild, hallucinations, 05/18/17) morphine (Verified Adverse Reaction, Mild, hallcination, 05/18/17) simvastatin (Verified Adverse Reaction, Mild, NAUSEA, 05/18/17) Uncoded Allergies: myocins (Allergy, Unknown, NAUSEA, 12/02/15) Patient Home Medication List Home Medication List Reviewed: Yes Review of Systems Review of Systems Constitutional: see HPI; No chills, No fever EENTM: see HPI Respiratory: see HPI; No cough, No wheezing Cardiovascular: No chest pain, No edema Gastrointestinal: No abdominal pain, No nausea, No vomiting All Other Systems Reviewed Negative Unless Noted: Yes Past Xfhhnwz-Wctehw-Fpzhtd Hx Patient Social History Tobacco Use?: No Use of E-Cig and/or Vaping dev: No Substance use?: No Alcohol Use?: No Immunizations Up To Date Second COVID19 Vaccination Hermes: 06/11/2021 Seasonal Allergies Seasonal Allergies: Yes Past Medical History Surgeries: Yes (right tkr x2, JUNIE HEEL SPUR, mass removed from colon, COLECTOMY, R knee sco) Appendectomy, Hysterectomy, Thyroidectomy Respiratory: Yes (uses cpap) Sleep Apnea Currently Using CPAP: Yes Currently Using BIPAP: No Cardiac: Yes High Cholesterol Neurological: No Reproductive Disorders: No CLINICAL APPLICATIONS SPECIALIST History: Hysterectomy Sexually Transmitted Disease: No HIV/AIDS: No Genitourinary: No Gastrointestinal: Yes (benign colon mass removed, enlarged spleen) Chronic Diarrhea, Cirrhosis Musculoskeletal: Yes Osteoporosis, Arthritis Endocrine: Yes (diet controlled diabetes) Hypothyroidsim HEENT: Yes (GLASSES) Loss of Vision: Denies Hearing Impairment: Denies Cancer: No Psychosocial: Yes Anxiety, Depression Integumentary: No Blood Disorders: Yes (HX ANEMIA) Adverse Reaction/Blood Tranf: No (HAS HAD BLOOD WITH NO REACTION) Family Medical History Reviewed and Corrections made No Pertinent Family Hx Physical Exam Vital Signs Vital Signs - First Documented 06/11/21 11:15 Temp 36.4 Pulse 72 Resp 20 B/P (MAP) 146/95 (112) Pulse Ox 95 O2 Delivery Room Air Capillary Refill : Less Than 3 Seconds Height, Weight, BMI Height: 5'2.00" Weight: 306lbs. 0.0oz. 138.440600zq; 58.00 BMI Method:Stated General Appearance: No Apparent Distress, WD/WN HEENT: PERRL/EOMI, Pharynx Normal Neck: Non Tender, Supple Respiratory: Lungs Clear, Normal Breath Sounds Cardiovascular: No Murmur, Tachycardia Gastrointestinal: Non Tender, Soft Back: Normal Inspection, No CVA Tenderness, No Vertebral Tenderness Extremity: Normal Range of Motion, Non Tender Neurologic/Psychiatric: Alert, Oriented x3 Skin: Normal Color, Warm/Dry Progress/Results/Core Measures Suspected Sepsis SIRS Temperature: Pulse: 72 Respiratory Rate: 20 Laboratory Tests 06/11/21 11:15: White Blood Count 5.5 Blood Pressure 146 /95 Mean: 112 Laboratory Tests 06/11/21 11:15: Creatinine 0.83, Platelet Count 78L, Total Bilirubin 2.7H Results/Orders Lab Results Laboratory Tests Test 06/11/21 11:15 Range/Units White Blood Count 5.5 4.3-11.0 10^3/uL Red Blood Count 3.95 3.80-5.11 10^6/uL Hemoglobin 13.6 11.5-16.0 g/dL Hematocrit 41 35-52 % Mean Corpuscular Volume 103 H 80-99 fL Mean Corpuscular Hemoglobin 34 25-34 pg Mean Corpuscular Hemoglobin Concent 34 32-36 g/dL Red Cell Distribution Width 13.0 10.0-14.5 % Platelet Count 78 L 130-400 10^3/uL Mean Platelet Volume 11.1 9.0-12.2 fL Immature Granulocyte % (Auto) 0 % Neutrophils (%) (Auto) 57 42-75 % Lymphocytes (%) (Auto) 29 12-44 % Monocytes (%) (Auto) 7 0-12 % Eosinophils (%) (Auto) 6 0-10 % Basophils (%) (Auto) 1 0-10 % Neutrophils # (Auto) 3.1 1.8-7.8 10^3/uL Lymphocytes # (Auto) 1.6 1.0-4.0 10^3/uL Monocytes # (Auto) 0.4 0.0-1.0 10^3/uL Eosinophils # (Auto) 0.3 0.0-0.3 10^3/uL Basophils # (Auto) 0.0 0.0-0.1 10^3/uL Immature Granulocyte # (Auto) 0.0 0.0-0.1 10^3/uL Percent Immature Platelet Fraction 3.4 0.0-7.6 % Sodium Level 140 135-145 MMOL/L Potassium Level 4.0 3.6-5.0 MMOL/L Chloride Level 110 H 98-107 MMOL/L Carbon Dioxide Level 20 L 21-32 MMOL/L Anion Gap 10 5-14 MMOL/L Blood Urea Nitrogen 11 7-18 MG/DL Creatinine 0.83 0.60-1.30 MG/DL Estimat Glomerular Filtration Rate 69 BUN/Creatinine Ratio 13 Glucose Level 183 H 70-105 MG/DL Calcium Level 10.2 H 8.5-10.1 MG/DL Corrected Calcium 10.5 H 8.5-10.1 MG/DL Total Bilirubin 2.7 H 0.1-1.0 MG/DL Aspartate Amino Transf (AST/SGOT) 37 H 5-34 U/L Alanine Aminotransferase (ALT/SGPT) 25 0-55 U/L Alkaline Phosphatase 83 40-136 U/L Total Protein 6.7 6.4-8.2 GM/DL Albumin 3.6 3.2-4.5 GM/DL My Orders Orders - HALEIGH BURRIS MD Methylprednisolone Sod Succ (Solu-Medrol (06/11/21 11:03) Cbc With Automated Diff (06/11/21 11:04) Comprehensive Metabolic Panel (06/11/21 11:04) Acetaminophen Tablet (Tylenol Tablet) (06/11/21 14:52) Vital Signs/I&O 06/11/21 11:15 Temp 36.4 Pulse 72 Resp 20 B/P (MAP) 146/95 (112) Pulse Ox 95 O2 Delivery Room Air Capillary Refill : Less Than 3 Seconds Blood Pressure Mean: 112 Progress Note : Progress Note Seen and evaluated. Patient placed on repair welder. Basic labs ordered. Patient improving currently so we will monitor her for the next 4 hours. Solu- Medrol 125 mg IV ordered. This was given. Monitor patient. 1543: Overall doing well. I did discuss the case with Dr. Vega. She will send prescription for prednisone. Patient will pick that up on the way home. She was given Tylenol 1 g p.o. for headache. Discharged home with return precautions. Patient verbalized understanding instructions and agreement with plan. Departure Impression Primary Impression: Anaphylactic reaction due to vaccination Qualified Codes: T80.52XA - Anaphylactic reaction due to vaccination, initial encounter Disposition: 01 HOME, SELF-CARE Condition: Improved Departure-Patient Inst. Decision time for Depature: 15:43 Referrals: BRENTON VEGA MD (PCP/Family) Primary Care Physician Patient Instructions: Anaphylaxis (DC) Add. Discharge Instructions: All discharge instructions reviewed with patient and/or family. Voiced understanding. skewer up prescription on the way home at [facility]. You may take Pepcid 20 mg daily for the next 3 or 4 days. You may take Benadryl 25 mg every 6 hours as needed for itching. Return for breathing problems, throat swelling, weakness, chest pain, vomiting or other concerns as needed. It is not uncommon to have headache, fatigue and body aches after the Covid vaccine and you may experience this over the next 24 to 36 hours. Copy Copies To 1: BRENTON VEGA MD, TIMOTHY D MD Jun 11, 2021 12:59
[2021-06-11] MEDS ORDERED: ACETAMINOPHEN 500 MG TAB (TYLENOL) PO STA (14:52)
[2021-06-11 16:00] VITALS: BP 146/72
== END 2021-06-11 16:05 | disposition home or self-care (01) ==
LOC: EDUNIT# 10:51 → ER 10:53
DX: T80.52XA Anaphylactic reaction due to vaccination, initial encounter (principal); G47.30 Sleep apnea, unspecified
CPT/HCPCS: 36415; 80053; 85025

== ENCOUNTER 2021-10-14 12:51 | Outpatient (CLI) | payer MEDICARE ==
[~2021-10-14] VITALS: Ht 157.2 cm; Wt 153.0 kg
[2021-10-14] MEDS ORDERED: MTP25TSR PO (13:23)
[2021-10-14] MEDS ORDERED: SERT50TA2 PO (13:23)
[2021-10-14 14:03] LABS: BASOPHILS % (AUTO) 1 % (0-10); EOSINOPHILS # (AUTO) 0.3 10^3/uL (0.0-0.3); EOSINOPHILS % (AUTO) 5 % (0-10); HEMATOCRIT 38 % (35-52); HEMOGLOBIN 13.1 g/dL (11.5-16.0); LYMPHOCYTES # (AUTO) 1.4 10^3/uL (1.0-4.0); LYMPHOCYTES % (AUTO) 24 % (12-44); MEAN CORPUSCULAR HEMOGLOBIN 35 pg (25-34); MEAN CORPUSCULAR HGB CONC 35 g/dL (32-36); MEAN CORPUSCULAR VOLUME 101 fL (80-99); MEAN PLATELET VOLUME 10.1 fL (9.0-12.2); MONOCYTES # (AUTO) 0.5 10^3/uL (0.0-1.0); MONOCYTES % (AUTO) 9 % (0-12); NEUTROPHILS # (AUTO) 3.7 10^3/uL (1.8-7.8); NEUTROPHILS % (AUTO) 62 % (42-75); PLATELET COUNT 73 10^3/uL (130-400); WHITE BLOOD COUNT 5.9 10^3/uL (4.3-11.0)
[2021-10-14 14:17] LABS: BACTERIA,URINE MODERATE /HPF; BILIRUBIN,URINE NEGATIVE (NEGATIVE); CLARITY,URINE SL CLOUDY; COLOR,URINE YELLOW; GLUCOSE, URINE (UA) NEGATIVE (NEGATIVE); KETONES,URINE NEGATIVE (NEGATIVE); LEUKOCYTE ESTERASE ,URINE NEGATIVE (NEGATIVE); NITRITE,URINE NEGATIVE (NEGATIVE); PROTEIN,URINE NEGATIVE (NEGATIVE); SQUAMOUS EPITHELIAL CELL,UR 25-50 /HPF; WBC,URINE 0-2 /HPF
--- NOTE | 2021-10-14 14:19 | Diagnostic Imaging Report ---
INDICATION: Preop left knee surgery, osteoarthritis. EXAMINATION: PA and lateral chest. FINDINGS: There is a dual-chamber pacemaker. There is a loop recorder in the left lower chest. The heart size and pulmonary vascularity are normal. The lungs are clear. There are no effusions or pneumothoraces. IMPRESSION: No acute abnormalities in the chest. Dictated by: Dictated on workstation # [id number]
[2021-10-14 14:21] LABS: ERYTHROCYTE SEDIMENTATION RATE 9 MM/HR (0-30)
[2021-10-14 14:27] LABS: ALBUMIN 3.3 GM/DL (3.2-4.5); CALCIUM 10.6 MG/DL (8.5-10.1); CREATININE SERUM 0.8 MG/DL (0.60-1.30); POTASSIUM 4.3 MMOL/L (3.6-5.0); TOTAL PROTEIN 5.7 GM/DL (6.4-8.2)
[2021-10-14 14:28] LABS: INR 1.4 (0.8-1.4); PROTHROMBIN TIME PATIENT 17.1 SEC (12.2-14.7)
== END 2021-10-14 14:56 ==
LOC: PREOP 12:51
PROVIDERS: ATTEND Orthopaedic Surgery
DX: Z01.812 Encounter for preprocedural laboratory examination (principal); Z01.810 Encounter for preprocedural cardiovascular examination; M17.12 Unilateral primary osteoarthritis, left knee; Z96.652 Presence of left artificial knee joint
CPT/HCPCS: 36415; 71046; 80053; 81000; 85025; 85610; 85652; 86850; 86900; 86901; 87081; 93005

== ENCOUNTER → 2021-10-16 | Outpatient (CLI) | payer MEDICARE ==
[~2021-10-16] MED LIST changes: +CHOL500050 PO; +CIPR500T5 PO; +DIPH25TA65 PO; +MELA10TA2 PO; +MELA1TAB20 PO; +OMEP20CA18 PO; +SERT50TA2 PO; +SPIR50TA4 PO
== END ==
LOC: LAB FS 10:07
PROVIDERS: ATTEND Orthopaedic Surgery
DX: Z01.812 Encounter for preprocedural laboratory examination (principal); M17.12 Unilateral primary osteoarthritis, left knee; Z20.822 Contact with and (suspected) exposure to COVID-19

== ENCOUNTER → 2021-10-19 | Outpatient (CLI) | payer MEDICARE | LOC: LAB FS 11:47 | PROVIDERS: ATTEND Orthopaedic Surgery | DX: M17.12 Unilateral primary osteoarthritis, left knee (principal); Z96.652 Presence of left artificial knee joint | CPT/HCPCS: 87635 ==

== ENCOUNTER 2021-10-21 07:01 | Inpatient (IN) | payer MEDICARE ==
--- NOTE | 2021-10-14 17:46 | HISTORY AND PHYSICAL ---
DATE OF SERVICE: INPATIENT HISTORY AND PHYSICAL This will be for inpatient admission on 10/21/2021 for left total knee arthroplasty. The patient will require regular inpatient admission due to comorbidities, need for physical therapy and pain management. HISTORY OF PRESENT ILLNESS: The patient is a 65-year-old female with longstanding left knee pain. Radiographs revealed severe medial and patellofemoral arthrosis. She has undergone treatment with injections, anti-inflammatories and rest without relief. She also reports pain in her hip because of the knee. She reports loss of function due to the knee and because of this, elected to proceed with surgical intervention. The patient understands that she has multiple comorbidities, which make her greatly increased risk for postoperative complications and need for further surgeries. REVIEW OF SYSTEMS: No chest pain, no shortness of breath, no dysuria. PAST MEDICAL HISTORY: Hypertension, diabetes, hypercholesterolemia, Crohn's disease, cirrhosis of the liver, anxiety disorder, depression, hypothyroidism, allergic rhinitis, iron deficiency, tension headaches, sleep apnea, urinary incontinence. PAST SURGICAL HISTORY: Appendectomy, thyroidectomy, right total knee arthroplasty x2, right knee arthroscopy, hysterectomy, cholecystectomy, colon mass resection, ____ right rotator cuff repair, cholecystectomy. FAMILY HISTORY: Significant for ischemic heart disease, stroke and diabetes. PRIMARY CARE PROVIDER: Dr. Lona Vega. MEDICATIONS: Imodium, Florastor, diclofenac, desvenlafaxine, spironolactone, metoprolol, Synthroid, melatonin, cyanocobalamin, Zetia, iron, omeprazole, metformin. ALLERGIES: PENICILLIN, SULFA, MYCINS, FLU VACCINE, TETANUS VACCINE, ZOCOR, LIPITOR, DILAUDID, MORPHINE, NIACIN, COVID VACCINE AND ADHESIVE TAPE. SOCIAL HISTORY: The patient denies alcohol and tobacco use. PHYSICAL EXAMINATION: GENERAL: The patient is well-developed, well-nourished, in no acute distress. HEENT: Normocephalic, atraumatic. Pupils are equal, round and reactive to light. Oropharynx is clear. NECK: Supple, with no lymphadenopathy. LUNGS: Clear to auscultation bilaterally. HEART: Regular rate and rhythm. ABDOMEN: Soft, nontender, nondistended. EXTREMITIES: The left knee demonstrates varus alignment. She has marked patellofemoral crepitus and pain with patellar loading. She is tender along the medial femoral condyle. Range of motion 0/5/90. No varus or valgus laxity. Negative anterior and posterior drawer. IMPRESSION: Severe left knee osteoarthritis. PLAN: Left total knee arthroplasty. The risks, benefits, options, ramifications and recovery have been discussed at length with the patient. She understands and wishes to proceed. Job ID: [id number] DocumentID: [id number] Dictated Date: 10/05/2021 12:47:24 Tablet Coater Date: 10/05/2021 13:02:07 Dictated By: RONY SAMANIEGO MD
[2021-10-21] VITALS (11 sets, daily range): BP systolic 130–171; BP diastolic 60–77
[~2021-10-21] VITALS: Ht 157.2 cm; Wt 153.0 kg
[~2021-10-21 07:01] MED LIST changes: -CHOL500050 PO; -CIPR500T5 PO; -DIPH25TA65 PO; -MELA10TA2 PO; -MELA1TAB20 PO; -OMEP20CA18 PO; -SPIR50TA4 PO
[2021-10-21] MEDS ORDERED: CEFUROXIME INJECTION 1,500 MG in NS (IVPB) 50 ML IV ONE (07:15)
[2021-10-21] MEDS ORDERED: ONDANSETRON 4 MG/2 ML (SDV) Z0FRAN IVP PRN ×2 (07:30→11:45)
[2021-10-21] MEDS ORDERED: NALOXONE 0.4 MG/ML 1 ML (NARCAN) VIAL IV PRN (07:30)
[2021-10-21] MEDS ORDERED: diphenhydrAMINE 50 MG/ML INJ (BENADRYL) IVP PRN (07:30)
--- NOTE | 2021-10-21 07:34 | Progress Note-Post Operative ---
Post-Operative Progess Note Surgeon (s)/Senior Product Development Scientist (s) Surgeon RONY SAMANIEGO MD Senior Product Development Scientist: Nate Jade Pre-Operative Diagnosis left knee primary osteoarthritis Post-Operative Diagnosis left knee primary osteoarthritis Procedure & Operative Findings Date of Procedure 10/21/21 Procedure Performed/Findings left total knee arthroplasty Anesthesia Type GETA Estimated Blood Loss Estimated blood loss (mL): minimal Specimens/Packing Specimens Removed none Packing: none RONY SAMANIEGO MD Oct 21, 2021 07:34
--- NOTE | 2021-10-21 07:34 | Progress Note-Pre Operative ---
Pre-Operative Progress Note H&P Reviewed The H&P was reviewed, patient examined and no changes noted. Date Seen by Provider: Oct 21, 2021 Time Seen by Provider: 07:25 Date H&P Reviewed: Oct 21, 2021 Time H&P Reviewed: 07:11 Pre-Operative Diagnosis: left knee primary osteoarthritis RONY SAMANIEGO MD Oct 21, 2021 07:34
--- NOTE | 2021-10-21 07:37 | D/C HH Face to Face Order ---
D/C Face to Face Orders Reconcile Patient Problems Problems Reviewed?: Yes Instructions for Patient Via [facility], Patient Instructions/FollowUp: three weeks Physician to follow Patient: three weeks Discharge Diet for Home: Regular Diet Patient Data-Allergies,Ht & Wt Patient Allergies: Coded Allergies: COVID-19 (SARS-CoV-2) vaccine, meri (Unverified Allergy, Severe, Anaphylaxis, 10/14/21) erythromycin base (Unverified Allergy, Severe, Hives, 10/14/21) Penicillins (Verified Allergy, Intermediate, HIVES, 10/14/21) Sulfa (Sulfonamide Antibiotics) (Verified Allergy, Intermediate, HIVES, 10/14/21) adhesive tape (Verified Allergy, Intermediate, HIVES, 10/14/21) tetanus and diphtheria toxoids (Verified Allergy, Intermediate, HIVES, 10/14/21) Influenza Virus Vaccines (Verified Adverse Reaction, Mild, NAUSEA, 10/14/21) atorvastatin (Verified Adverse Reaction, Mild, NAUSEA, 10/14/21) hydromorphone (Verified Adverse Reaction, Mild, hallucinations, 10/14/21) morphine (Verified Adverse Reaction, Mild, hallcination, 10/14/21) simvastatin (Verified Adverse Reaction, Mild, NAUSEA, 10/14/21) Height (Feet): 5 Height (Inches): 2.00 Weight (Pounds): 306 Weight (Ounces): 0.0 Home Health Need/Face to Face Date of Face to Face: Oct 21, 2021 Clinical Findings: Muscle weakness, Pain with ambulation, Unsteady gait I have seen Pt oiws-sv-keas: Yes Discharged To: Home Diagnosis/Conditions: left total knee arthroplasty Patient is Homebound due to: Andrews fall risk due to instabilty, Pain w/ambulation Homebound Status Due to the above stated illness, injury or surgical procedure (medical condition or diagnosis) and associated clinical findings, the patient is homebound because of his/her inability to leave home except with aid of a supportive device and/or person AND leaving the home requires a considerable and taxing effort or is medically contraindicated. Pt req the following assistanc: [facility] Nursing Orders Home Health Services Order: Physical Therapy-Evaluate & Treat DC left knee renaldo and apply steri strips 11/04/21 Therapy Orders Therapy Orders: Physical Therapy, PT to assess for OT Therapy Specific Orders: Eval assistive deivces, Teach enviro modifications /safety, Gait training, Increase strength/endurance, Provider maintenance therapy, Restore ROM Certify Stmt I certify that this patient is under my care and that I, a nurse practitioner or a physician; a metal forger's assistant working with me, had a face to face encounter that - meets the physician face to face encounter requirements with this patient as dated. RONY SAMANIEGO MD Oct 21, 2021 07:36
[2021-10-21] MEDS ORDERED: INTRA-ARTICULAR IU ONE ×4 (07:45)
[2021-10-21] MEDS ORDERED: SEVOFLURANE (ULTANE) 15 ML INHAL SOLN ONE ×2 (08:33→11:30)
[2021-10-21] MEDS ORDERED: LIDOCAINE PF 2% 5 ML (XYLOCAINE) VIAL ONE (08:33)
[2021-10-21] MEDS ORDERED: fentaNYL INJ 100 MCG/2 ML AMP ONE ×3 (08:33→11:51)
[2021-10-21] MEDS ORDERED: proPOfol 200 MG/20 ML (DIPRIVAN) VIAL IV ONE (08:33)
[2021-10-21] MEDS ORDERED: ONDANSETRON 4 MG/2 ML (SDV) Z0FRAN ONE (08:33)
[2021-10-21] MEDS ORDERED: MIDAZOLAM 2 MG/2 ML (VERSED) VIAL ONE (08:34)
[2021-10-21] MEDS ORDERED: TRANEXAMIC ACID 100 MG/ML 10 ML INJECTION ONE (08:43)
[2021-10-21] MEDS: LACTATED RINGERS 1,000 ML IV PRN ×2 (08:58→10:12)
[2021-10-21] MEDS ORDERED: SPIR50TA4 PO (09:14)
[2021-10-21] MEDS ORDERED: METF-397 PO (09:14)
[2021-10-21] MEDS ORDERED: OMEP20CA18 PO (09:14)
[2021-10-21] MEDS ORDERED: MELA1TAB20 PO (09:14)
[2021-10-21] MEDS ORDERED: CHOL500050 PO (09:14)
[2021-10-21] MEDS ORDERED: ROCURONIUM 10 MG/ML 5 ML SYRINGE IV ONE (09:25)
[2021-10-21] MEDS ORDERED: fentaNYL INJ 100 MCG/2 ML AMP IVP ONE (11:45)
--- NOTE | 2021-10-21 12:08 | Progress Note ---
Standard Progress Note Progress Notes/Assess & Plan Date Seen by a Provider: Oct 21, 2021 Time Seen by a Provider: 12:07 Progress/Assessment & Plan no complaints radiogrphs--AP is rotated but components appear to be well positioned LLE--2plus DP pulse with brisk cap refill. intact DF and PF of toes and ankle sensation intact to light touch throughout s/p LTKA mobilize as able RONY SAMANIEGO MD Oct 21, 2021 12:08
--- NOTE | 2021-10-21 12:37 | Diagnostic Imaging Report ---
INDICATION: Left knee replacement. TIME OF EXAM: 11:47 a.m. FINDINGS: Two views of the left knee demonstrate postop changes of total knee arthroplasty. The prosthetic elements appear to be in good position. No fracture or loosening is seen. There are overlying skin renaldo. IMPRESSION: Satisfactory postop appearance to the left knee. Dictated by: Dictated on workstation # [id number]
[2021-10-21] MEDS: fentaNYL INJ 100 MCG/2 ML AMP IVP PRN ×3 (13:05→23:15)
[2021-10-21] MEDS: NS IV 1000 ML 1,000 ML IV SCH ×2 (13:05→20:00)
[2021-10-21] MEDS: SENNA W/DOCUSATE (SENOKOT S) TABLET PO SCH ×2 (13:08→20:14)
[2021-10-21] MEDS: oxyCODONE/APAP 5/325MG (PERCOCET 5) TABLET PO PRN ×4 (13:40→20:14)
--- NOTE | 2021-10-21 14:35 | Physical Therapy Evaluation ---
PT Evaluation-General Medical Diagnosis Admission Date Oct 21, 2021 at 07:01 Medical Diagnosis: left TKA Onset Date: Oct 21, 2021 Therapy Diagnosis Therapy Diagnosis: impaired mobility, strength, endurance Height/Weight Height (Feet): 5 Height (Inches): 2.00 Weight (Pounds): 306 Weight (Ounces): 0.0 Weight Bear Status Left Lower Extremity: Left Weight Bearing/Tolerated Referral Physician: Yasmany Reason for Referral: Evaluation/Treatment Medical History Additional Medical History PAST MEDICAL HISTORY: Hypertension, diabetes, hypercholesterolemia, Crohn's disease, cirrhosis of the liver, anxiety disorder, depression, hypothyroidism, allergic rhinitis, iron deficiency, tension headaches, sleep apnea, urinary incontinence. PAST SURGICAL HISTORY: Appendectomy, thyroidectomy, right total knee arthroplasty x2, right knee arthroscopy, hysterectomy, cholecystectomy, colon mass resection, ____ right rotator cuff repair, cholecystectomy. Reviewed History: Yes Social History Home: Single Level Current Living Status: Spouse Entry Into Home: Stairs With Railing PT Steps Into Home: 2 Prior Prior Level of Function SCALE: Activities may be completed with or without assistive devices. 6-Lombxzfdiq-zubaizj completes the activity by him/herself with no assistance from a helper. 5-Set-up or Clean-up Assistance-helper sets up or cleans up; patient completes activity. Lincoln assists only prior to or following the activity. 4-Supervision or Touching Assistance-helper provides verbal cues and/or touching/steadying and/or contact guard assistance as patient completes activity. Assistance may be provided throughout the activity or intermittently. 3-Partial/Moderate Assistance-helper does LESS THAN HALF the effort. Lincoln lifts, holds or supports trunk or limbs, but provides less than half the effort. 2-Substantial/Maximal Assistance-helper does MORE THAN HALF the effort. Lincoln lifts or holds trunk or limbs and provides more than half the effort. 4-Ogmaasxag-ydswcr does ALL the effort. Patient does none of the effort to complete the activity. Or, the assistance of 2 or more helpers is required for the patient to complete the activity. If activity was not attempted, code reason: 7-Patient Refused. 9-Not Applicable-not attempted and the patient did not perform the activity before the current illness, exacerbation or injury. 10-Not Attempted due to Environmental Limitations-(lack of equipment, weather restraints, etc.). 88-Not Attempted due to Medical Conditions or Safety Concerns. Bed Mobility: 6 Transfers (B,C,W/C): 6 Gait: 6 Stairs: 6 Indoor Mobility (Ambulation): Independent Stairs: Independent Patient states she uses a SPC PT Evaluation-Current Subjective Patient in bed pre tx, agrees to PT, has 8/10 pain in left knee. Pt/Family Goals to be independent at home Objective Patient Orientation: Person, Place, Situation ROM/Strength ROM Lower Extremities left knee flexion 50 degrees, extension +15 degrees Sensory Vision: Functional Hearing: Functional Sensation Right Lower Extremit: Intact Sensation Left Lower Extremity: Impaired Transfers Roll Left to Right (QC): 3 Sit to Lying (QC): 3 Lying to Sitting/Side of Bed(Q: 3 Sit to Stand (QC): 3 Chair/Tuw-gk-Kqnyy Xfer(QC): 3 Toilet Transfer (QC): 3 Patient min assist to sit to the side of the bed, stands with min assist and transfers to commode, she isnt able to ambulate at this time due to left knee buckling. She wipes herself and then min assist back to bed. Balance Sitting Static: Normal Sitting Dynamic: Normal Standing Static: Fair Standing Dynamic: Fair Treatment supine TKA protocol x10 (AP, QS, HS, SAQ, SLR), CPM donned and adjusted to patient's leg and set to 50/-2 Assessment/Needs Patient in bed post tx with nurse call, phone, tray, all needs met, [facility] care on. Patient has impaired mobility, strength, endurance, ROM. Min assist for transfers and supine <-> sit. Rehab Potential: Fair PT Retirement Goals Drum Saw Operator Goals PT Retirement Goals Time Frame: Oct 28, 2021 Roll Left & Right (QC): 6 Sit to Lying (QC): 6 Lying-Sitting on Side/Bed(QC): 6 Sit to Stand (QC): 6 Chair/Qrs-rv-Qznlt Xfer(QC): 6 Walk 10 feet (QC): 6 Walk 50ft with 2 Turns (QC): 6 Walk 150 ft (QC): 6 1 Step (curb) (QC): 4 4 Steps (QC): 4 PT Plan Problem List Problem List: Activity Tolerance, Functional Strength, Safety, Balance, Gait, Transfer, Bed Mobility, ROM Treatment/Plan Treatment Plan: Continue Plan of Care Treatment Plan: Bed Mobility, Education, Functional Activity Shanice, Functional Strength, Gait, Safety, Therapeutic Exercise, Transfers Treatment Duration: Oct 28, 2021 Frequency: 11 times per week Estimated Hrs Per Day: .25 hour per day Patient and/or Family Agrees t: Yes Safety Risks/Education Patient Education: Transfer Techniques, Reviewed Use of Ice, Correct Positioning, Safety Issues Teaching Recipient: Patient Teaching Methods: Demonstration, Discussion Response to Teaching: Reinforcement Needed Discharge Recommendations Plan Patient will perform bed mobility and transfer training, balance and endurance training, functional strengthening, stair training, gait training, and education, to improve functional mobility and independence at home. Therapy Discharge Recommendati: Home & Family, Post Acute PT Time/GCodes Time In: 1326 Time Out: 1421 Total Billed Treatment Time: 30 Total Billed Treatment 1 visit EVM 15' FA 15' treated patient from [id number] and from [id number] BRANDY ZAMUDIO PT Oct 21, 2021 14:35
[2021-10-21] MEDS ORDERED: METO50TA7 PO (14:46)
[2021-10-21] MEDS ORDERED: CIPR500T5 PO (14:46)
[2021-10-21] MEDS ORDERED: SERT-414 PO (14:46)
[2021-10-21] MEDS ORDERED: MELA10TA2 PO (14:46)
[2021-10-21] MEDS ORDERED: DIPH25TA65 PO (14:49)
[2021-10-21] MEDS: CEFUROXIME INJECTION 750 MG in NS (IVPB) 50 ML IV SCH ×2 (15:24→23:15)
--- NOTE | 2021-10-21 15:49 | OPERATIVE REPORT ---
DATE OF SERVICE: 10/21/2021 PREOPERATIVE DIAGNOSIS: Left knee primary osteoarthritis. POSTOPERATIVE DIAGNOSIS: Left knee primary osteoarthritis. PROCEDURE: Left total knee arthroplasty. SURGEON: Vitaly Samaniego MD FILM PROCESSOR: Nate Jade, who assisted throughout the procedure and closed the incision. ANESTHESIA: General endotracheal by Dr. Merino. TOURNIQUET TIME: Approximately 72 minutes at 300 mmHg. ESTIMATED BLOOD LOSS: Minimal. DRAINS: None. COMPLICATIONS: None. POSTOPERATIVE PLAN: Routine total knee arthroplasty protocol. MATERIALS: Microport cemented size 5 femur with 25 mm stem cemented size 5 tibia with 50 mm stem, a 10 mm insert and a 29 cemented patella. STATEMENT OF MEDICAL NECESSITY: The patient is a 65-year-old female with longstanding left knee pain. Radiographs revealed severe medial and patellofemoral arthrosis. She has undergone treatment with injections, anti-inflammatories and rest without relief. The patient had failed to respond to conservative measures and reported marked functional impairment and because of this, I elected to proceed with surgical intervention. The patient understood that due to her size, she was at marked increased risk for complications. DESCRIPTION OF PROCEDURE: After risks and benefits of procedure were discussed and questions were answered, an informed consent was signed and placed on the chart, the operative site was confirmed in the preoperative holding area initialed by the surgeon. The patient was then transferred to the operating room and after adequate levels of general endotracheal anesthetic were obtained, a timeout was called, confirming the operative site. Left lower extremity was prepped and draped in the usual sterile fashion with the leg elevated and the knee flexed, tourniquet was inflated to 300 mmHg. A standard anterior approach was utilized. Hemostasis was obtained with cautery. Medial parapatellar arthrotomy was performed leaving 1 cm cuff on the patella for later reattachment. A portion of the fat pad was resected. A subperiosteal release was performed on the proximal medial tibia being careful to stay on the bony surface. The ACL was resected. Intramedullary guide was passed into the femoral canal. The distal cutting block was placed. Distal cut was made and the femur sized to a size 5, the 5 cutting block was placed parallel to the epicondylar axis and cuts were made from posterior to anterior. Subperiosteal release was then carefully performed on the posterior distal femur, being careful to stay on the bony surface. The intramedullary guide was then passed into the tibia. The cutting block was placed. The drop ebenezer transected the intermalleolar axis and the cut was made. A 5 baseplate was placed and the drop ebenezer transected the intermalleolar axis. This was then prepared with the drill followed by the keel punch. The 10 mm insert was placed. The femoral trial was placed and the stem was prepared. The patella was prepared by resecting 10 mm off the undersurface. Peg guide was placed and peg holes were drilled. The trials were inserted with 10 mm insert and 29 mm patella trial. Full extension was easily obtained, 120 degrees of flexion with gravity was obtained. This was blocked by her pannus of her posterior thigh. There was no anterior/posterior or medial/lateral laxity in flexion or extension. The trials were removed. The joint was irrigated with pulse lavage. Periarticular block was placed in the posterior capsule, medial and lateral retinaculum extensor mechanism, subcutaneous tissues. The bone ends were irrigated and dried and the tibial baseplate was cemented into position. Excessive cement was removed, the superior surface was irrigated and dried and the polyethylene insert was placed. The distal femur was irrigated and dried and the femoral prosthesis was cemented into position. Excessive cement was removed. The knee was brought out into full extension until cement had cured. The undersurface of the patella was irrigated and dried. The patellar button was cemented into position. Excessive cement was removed. Once the cement had cured, the knee was taken through range of motion. Full extension was easily obtained under 20 degrees of flexion with gravity was easily obtained. There was no anterior/posterior or medial/lateral laxity in flexion or extension and the patella tracked well. The joint was further irrigated with pulse lavage. Arthrotomy was closed with #2 FiberWire in lkjieh-jw-zjsrc interrupted fashion. The knee was flexed. The repair was stable and the patella tracked well. The subcutaneous tissues were irrigated with pulse lavage using a total of 6 liters throughout the procedure. A 0 Vicryl was used to close deep subcutaneous layer, 2-0 Vicryl for the superficial subcutaneous layer, renaldo were used on the skin. A soft dressing was applied. The tourniquet was deflated. The patient was transferred to the recovery room awake and in stable condition. Job ID: [id number] DocumentID: [id number] Dictated Date: 10/21/2021 11:19:47 Computer Forensic Examiner Date: 10/21/2021 15:48:49 Dictated By: VITALY SAMANIEGO MD
[2021-10-21] MEDS ORDERED: MELATONIN 10 MG TABLET PO PRN (18:45)
[2021-10-22] VITALS (7 sets, daily range): BP systolic 133–155; BP diastolic 60–75
[2021-10-22] MEDS: fentaNYL INJ 100 MCG/2 ML AMP IVP PRN ×3 (01:22→10:45)
[2021-10-22] MEDS: oxyCODONE/APAP 5/325MG (PERCOCET 5) TABLET PO PRN (01:23)
[2021-10-22] MEDS: NS IV 1000 ML 1,000 ML IV SCH ×2 (03:03→16:36)
[2021-10-22] MEDS: MULTIVIT W/MINERALS TAB (THERAGRAN M) PO SCH (05:04)
--- NOTE | 2021-10-22 08:04 | Progress Note ---
Standard Progress Note Progress Notes/Assess & Plan Date Seen by a Provider: Oct 22, 2021 Time Seen by a Provider: 08:02 Progress/Assessment & Plan no complaints radiogrphs--AP is rotated but components appear to be well positioned LLE--2plus DP pulse with brisk cap refill. intact DF and PF of toes and ankle sensation intact to light touch throughout s/p LTKA mobilize as able Final Diagnosis ambulating with PT Vital Signs Date Time Temp Pulse Resp B/P (MAP) Pulse Ox O2 Delivery O2 Flow Rate FiO2 10/22/21 04:34 37.1 80 20 133/60 (84) 95 Room Air 10/22/21 00:00 37.0 73 19 139/61 (87) 94 NIV CPAP 10/21/21 21:30 Room Air 10/21/21 20:00 37.6 73 22 157/73 (101) 95 Room Air 10/21/21 16:00 36.1 74 19 130/60 (83) 94 Room Air 10/21/21 12:50 36.7 68 20 130/63 (85) 96 Room Air 10/21/21 12:25 Room Air 10/21/21 12:25 37.9 18 133/63 (86) 99 Room Air 10/21/21 12:10 16 141/62 (88) 98 OxyMask 6 10/21/21 12:00 Room Air 10/21/21 12:00 14 137/60 (85) 100 OxyMask 6 10/21/21 11:50 16 146/63 (90) 98 OxyMask 6 10/21/21 11:45 OxyMask 4 10/21/21 11:40 20 146/63 (90) 96 OxyMask 6 10/21/21 11:30 OxyMask 6 10/21/21 11:30 22 138/60 (86) 97 OxyMask 6 10/21/21 11:24 OxyMask 8 10/21/21 11:24 37.8 24 150/68 (95) 96 OxyMask 8 10/21/21 09:44 Room Air I & O 10/22/21 07:00 Intake Total 2500 ml Output Total 1050 ml Balance 1450 ml Laboratory Tests Test 10/21/21 08:08 10/22/21 06:26 Range/Units Glucometer 168 H 70-110 MG/DL L knee dressing intact s/p LTKA PT/OT RONY SAMANIEGO MD Oct 22, 2021 08:03
[2021-10-22] MEDS: ENOXAPARIN 30 MG/0.3 ML (LOVENOX) SYR SC SCH ×2 (08:30→21:37)
[2021-10-22] MEDS: oxyCODONE/APAP 7.5-325 MG (PERCOCET 7.5) TABLET PO PRN ×4 (08:31→21:41)
[2021-10-22] MEDS: LEVOTHYROXINE 100 MCG (LEVOTHROID) TAB PO SCH (08:31)
[2021-10-22] MEDS: meTOproloL SUCCINATE 50 MG (TOPROL XL) TAB PO SCH (08:31)
[2021-10-22] MEDS: ASPIRIN E.C. 81 MG (ECOTRIN) TAB PO SCH (08:31)
[2021-10-22] MEDS: SENNA W/DOCUSATE (SENOKOT S) TABLET PO SCH ×2 (09:00→21:37)
--- NOTE | 2021-10-22 09:35 | Anesthesia-General Post-Op ---
General Patient Condition Mental Status/LOC: Same as Preop Cardiovascular: Satisfactory Nausea/Vomiting: Absent Respiratory: Satisfactory Pain: Controlled Complications: Absent Post Op Complications Complications None Follow Up Care/Instructions Patient Instructions None needed. Anesthesia/Patient Condition Patient Condition Patient is doing well, no complaints, stable vital signs, no apparent adverse anesthesia problems. No complications reported per nursing. LAUREL MAXWELL CRNA Oct 22, 2021 09:35
--- NOTE | 2021-10-22 09:56 | Physical Therapy Daily Note ---
PT Daily Note-Current Subjective Patient reluctantly agrees to PT. Patient c/o 10/10 left knee pain with meds issued. Pain Numeric Pain Scale: 10-Worst Possible Pain Location: Left Location Body Site: Knee Pain Description: Acute Mental Status Patient Orientation: Normal For Age Attachments: IV Transfers SCALE: Activities may be completed with or without assistive devices. 8-Woervofccn-arlfoia completes the activity by him/herself with no assistance from a helper. 5-Set-up or Clean-up Assistance-helper sets up or cleans up; patient completes activity. Aubrey assists only prior to or following the activity. 4-Supervision or Touching Assistance-helper provides verbal cues and/or touching/steadying and/or contact guard assistance as patient completes activity. Assistance may be provided throughout the activity or intermittently. 3-Partial/Moderate Assistance-helper does LESS THAN HALF the effort. Aubrey lifts, holds or supports trunk or limbs, but provides less than half the effort. 2-Substantial/Maximal Assistance-helper does MORE THAN HALF the effort. Aubrey lifts or holds trunk or limbs and provides more than half the effort. 5-Xnuqcmtxo-hbgoqi does ALL the effort. Patient does none of the effort to complete the activity. Or, the assistance of 2 or more helpers is required for the patient to complete the activity. If activity was not attempted, code reason: 7-Patient Refused. 9-Not Applicable-not attempted and the patient did not perform the activity before the current illness, exacerbation or injury. 10-Not Attempted due to Environmental Limitations-(lack of equipment, weather restraints, etc.). 88-Not Attempted due to Medical Conditions or Safety Concerns. Sit to Stand (QC): 2 Chair/Pce-uh-Nzakp Xfer(QC): 2 Toilet Transfer (QC): 2 Weight Bearing Left Lower Extremity: Left Weight Bearing/Tolerated Gait Training Distance: 5 steps Gait Assistive Device: FWW CGA for safety with patient unable to fully weight bear left LE to advance right LE. Exercises Seated Therapy Exercises: Ankle pumps, Long arc quads Seated Reps: 12 Assessment Patient requires time to complete all functional tasks and becomes increasingly SOA due to left knee pain. PT to increase activity as tolerated by patient. PT Hand Tube Winder Goals Hand Tube Winder Goals PT Mcfp Goals Time Frame: Oct 28, 2021 Roll Left & Right (QC): 6 Sit to Lying (QC): 6 Lying-Sitting on Side/Bed(QC): 6 Sit to Stand (QC): 6 Chair/Uqu-kx-Ygyxu Xfer(QC): 6 Walk 10 feet (QC): 6 Walk 50ft with 2 Turns (QC): 6 Walk 150 ft (QC): 6 1 Step (curb) (QC): 4 4 Steps (QC): 4 PT Plan Treatment/Plan Treatment Plan: Continue Plan of Care Treatment Plan: Bed Mobility, Education, Functional Activity Shanice, Functional Strength, Gait, Safety, Therapeutic Exercise, Transfers Treatment Duration: Oct 28, 2021 Frequency: 11 times per week Estimated Hrs Per Day: .25 hour per day Patient and/or Family Agrees t: Yes Time/GCodes Time In: 750 Time Out: 813 Total Billed Treatment Time: 23 Total Billed Treatment 1 visit FA x 2 23 min ROSEMARIE HAWKINS PT Oct 22, 2021 09:56
--- NOTE | 2021-10-22 10:22 | Occupational Therapy Eval ---
OT Evaluation-General/PLF Medical Diagnosis Admission Date Oct 21, 2021 at 07:01 Medical Diagnosis: left TKA Onset Date: Oct 21, 2021 Therapy Diagnosis Therapy Diagnosis: Reduced ADL status Height/Weight Height (Feet): 5 Height (Inches): 2.00 Weight (Pounds): 306 Weight (Ounces): 0.0 Precautions Precautions/Isolations: Fall Prevention, Standard Precautions Referral Physician: Yasmany Referral Reason: Evaluation/Treatment Medical History Current History s/p TKA post op day 1 Reviewed History: Yes Social History Home: Single Level Current Living Status: Spouse Entry Into Home: Stairs With Railing Steps Into Home: 2 Pt drowsy, having difficulty answering questions and often contradicting self. She reports indep with adls, except requires assist with donning socks/shoes. Family provides all IADLs. Pt was using a SPC prior to admission. ADL-Prior Level of Function SCALE: Activities may be completed with or without assistive devices. 7-Estwlykqej-xaefevm completes the activity by him/herself with no assistance from a helper. 5-Set-up or Clean-up Assistance-helper sets up or cleans up; patient completes activity. [place] assists only prior to or following the activity. 4-Supervision or Touching Assistance-helper provides verbal cues and/or touching/steadying and/or contact guard assistance as patient completes activity. Assistance may be provided throughout the activity or intermittently. 3-Partial/Moderate Assistance-helper does LESS THAN HALF the effort. Neches lifts, holds or supports trunk or limbs, but provides less than half the effort. 2-Substantial/Maximal Assistance-helper does MORE THAN HALF the effort. [place]eches lifts or holds trunk or limbs and provides more than half the effort. 8-Vnrsxdxaz-zydqbk does ALL the effort. Patient does none of the effort to complete the activity. Or, the assistance of 2 or more helpers is required for the patient to complete the activity. If activity was not attempted, code reason: 7-Patient Refused. 9-Not Applicable-not attempted and the patient did not perform the activity b efore the current illness, exacerbation or injury. 10-Not Attempted due to Environmental Limitations-(lack of equipment, weather restraints, etc.). 88-Not Attempted due to Medical Conditions or Safety Concerns. Self Care: Needed Some Help Functional Cognition: Unknown DME/Equipment: Shower OT Current Status Subjective Pt requesting to return back to bed. Drowsy, slightly confused. Reports pain as 10/10 Appearance Left supine in bed, all needs within reach. Mental Status/Objective Patient Orientation: Person, Situation Attachments: IV Current Upper Extremity ROM WNL Upper Extremity Strength 4/5 grossly ADL-Treatment Lower Body Dressing (QC): 2 (per clinical judgment) On/Off Footwear (QC): 1 Toileting Hygiene (QC): 2 (per clinical judgment) Pt sitting in chair at OT arrival. She requests to return back to bed. Significant time to initiate all movement. Max a x2 to stand after 2 attempts. Once upright, pt needs min a for balance. Heavy reliance on walker to maintain upright posture. Difficulty noted with transitioning LLE. Extra time and cues required. Pt unable to ambulate ~8 feet to bed and thus PRINCIPAL ARCHITECT brought bed closer behind patient. She was able to side step to HOB with steadying assist and assist to transition walker. Mod a to return to bed as pt required assist to lift BLE's into bed. Education OT Patient Education: Correct positioning, Modified ADL techniques, Progress toward Goal/Update tx plan, Purpose of tx/functional activities, Reviewed precautions, Rehab process, Safety issues, Transfer techniques Teaching Recipient: Patient Teaching Methods: Demonstration, Discussion Response to Teaching: Verbalize Understanding, Reinforcement Needed OT Scientific Manager Goals Scientific Manager Goals Time Frame: Nov 05, 2021 Oral Hygiene (QC): 4 Toileting Hygiene (QC): 4 Shower/Bathe Self (QC): 3 (min) Upper Body Dressing (QC): 4 Lower Body Dressing (QC): 4 1=Demonstrate adherence to instructed precautions during ADL tasks. 2=Patient will verbalize/demonstrate understanding of assistive devices/modifications for ADL. 3=Patient will improve strength/tolerance for activity to enable patient to perform ADL's. OT Education/Plan Problem List/Assessment Assessment: Decreased Activ Tolerance, Decreased Safety Aware, Dependent Transfers, Impaired Cognition, Impaired Funct Balance, Impaired Self-Care Skills Discharge Recommendations Plan/Recommendations: Continue POC Comment ongoing assessment, anticipate improved performance once pain subsides. Treatment Plan/Plan of Care Patient would benefit from OT for education, treatment and training to promote independence in ADL's, mobility, safety and/or upper extremity function for ADL's. Plan of Care: ADL Retraining, Functional Mobility, UE Funct Exercise/Act Treatment Duration: Nov 05, 2021 Frequency: 5 times per week Estimated Hrs Per Day: .25 hour per day Agreement: Yes Rehab Potential: Fair Time/GCodes Start Time: 09:31 Stop Time: 09:50 Total Time Billed (hr/min): 19 Billed Treatment Time 1 visit Kaley London OT Oct 22, 2021 10:22
--- NOTE | 2021-10-22 12:38 | Physical Therapy Daily Note ---
PT Daily Note-Current Subjective Patient in bed. Agrees to PT. Pain Numeric Pain Scale: 10-Worst Possible Pain Location: Left Location Body Site: Knee Pain Description: Acute Mental Status Patient Orientation: Normal For Age Attachments: IV Transfers SCALE: Activities may be completed with or without assistive devices. 4-Usiqywftmp-uuunsqm completes the activity by him/herself with no assistance from a helper. 5-Set-up or Clean-up Assistance-helper sets up or cleans up; patient completes activity. Drexel assists only prior to or following the activity. 4-Supervision or Touching Assistance-helper provides verbal cues and/or touching/steadying and/or contact guard assistance as patient completes activity. Assistance may be provided throughout the activity or intermittently. 3-Partial/Moderate Assistance-helper does LESS THAN HALF the effort. Drexel lifts, holds or supports trunk or limbs, but provides less than half the effort. 2-Substantial/Maximal Assistance-helper does MORE THAN HALF the effort. Drexel l ifts or holds trunk or limbs and provides more than half the effort. 5-Wjxzweimu-tckvkz does ALL the effort. Patient does none of the effort to complete the activity. Or, the assistance of 2 or more helpers is required for the patient to complete the activity. If activity was not attempted, code reason: 7-Patient Refused. 9-Not Applicable-not attempted and the patient did not perform the activity before the current illness, exacerbation or injury. 10-Not Attempted due to Environmental Limitations-(lack of equipment, weather restraints, etc.). 88-Not Attempted due to Medical Conditions or Safety Concerns. Lying to Sitting/Side of Bed(Q: 3 Sit to Stand (QC): 4 Chair/Mmz-ng-Ldhue Xfer(QC): 4 Toilet Transfer (QC): 4 Weight Bearing Left Lower Extremity: Left Weight Bearing/Tolerated Gait Training Distance: 20' x 2 Walk 10 feet (QC): 4 Gait Assistive Device: FWW very slow, VC's to weight shift to clear right foot Exercises Supine Ex: Ankle pumps, Quad Set, Heel Slides, Straight leg raise Supine Reps: 10 Seated Therapy Exercises: Long arc quads Seated Reps: 10 Assessment Patient improving with treatment plan. Patient very slow with all mobility. Increase activity. PT Chcf Goals Chcf Goals PT Chcf Goals Time Frame: Oct 28, 2021 Roll Left & Right (QC): 6 Sit to Lying (QC): 6 Lying-Sitting on Side/Bed(QC): 6 Sit to Stand (QC): 6 Chair/Edb-xy-Voejb Xfer(QC): 6 Walk 10 feet (QC): 6 Walk 50ft with 2 Turns (QC): 6 Walk 150 ft (QC): 6 1 Step (curb) (QC): 4 4 Steps (QC): 4 PT Plan Treatment/Plan Treatment Plan: Continue Plan of Care Treatment Plan: Bed Mobility, Education, Functional Activity Shanice, Functional Strength, Gait, Safety, Therapeutic Exercise, Transfers Treatment Duration: Oct 28, 2021 Frequency: 11 times per week Estimated Hrs Per Day: .25 hour per day Patient and/or Family Agrees t: Yes Time/GCodes Time In: 1130 Time Out: 1154 Total Billed Treatment Time: 24 Total Billed Treatment 1 visit EX 12 min GT 12 min ROSEMARIE HAWKINS PT Oct 22, 2021 12:38
[2021-10-22 15:31] LABS: HEMOGLOBIN 11.5 g/dL (11.5-16.0)
--- NOTE | 2021-10-22 21:24 | Consultation ---
HPI History of Present Illness: Patient here for L total knee. Asked to see patient by Dr Noriega. Patient has non insulin dependent DM, HTN. NGUYEN, Hypothyroidism. Patient states that her chronic medication conditions have been well controlled. She denies any chest pain or shortness of breath. Source: patient Exam Limitations: no limitations Date seen by provider: Oct 22, 2021 Time Seen by Provider: 10:05 Attending Physician Vitaly Noriega MD PCP Lona Vega MD Consult Date of Admission Oct 21, 2021 at 07:01 Home Medications Home Medications Reviewed patient Home Medication Reconciliation performed by pharmacy medication reconciliations install technician and/or nursing. Patients Allergies have been reviewed. Allergies Coded Allergies: COVID-19 (SARS-CoV-2) vaccine, meri (Unverified Allergy, Severe, Anaphylaxis, 10/14/21) erythromycin base (Unverified Allergy, Severe, Hives, 10/14/21) Penicillins (Verified Allergy, Intermediate, HIVES, 10/14/21) Sulfa (Sulfonamide Antibiotics) (Verified Allergy, Intermediate, HIVES, 10/14/21) adhesive tape (Verified Allergy, Intermediate, HIVES, 10/14/21) tetanus and diphtheria toxoids (Verified Allergy, Intermediate, HIVES, 10/14/21) Influenza Virus Vaccines (Verified Adverse Reaction, Mild, NAUSEA, 10/14/21) atorvastatin (Verified Adverse Reaction, Mild, NAUSEA, 10/14/21) hydromorphone (Verified Adverse Reaction, Mild, hallucinations, 10/14/21) morphine (Verified Adverse Reaction, Mild, hallcination, 10/14/21) simvastatin (Verified Adverse Reaction, Mild, NAUSEA, 10/14/21) JXT-Eubxqe-Nolcfa Hx Patient Social History Smoking Status: Never a Smoker 2nd Hand Smoke Exposure: No Recent Hopitalizations: No Alcohol Use?: No Have you traveled recently?: No Immunizations Up To Date Influenza Vaccine Up-to-Date: No; Not Current First/Initial COVID19 Vaccinat: 05/2021 Second COVID19 Vaccination Hermes: 06/2021 Past Medical History NIDDM HTN HLD NGUYEN Hypothyroidism Family Medical History Significant Family History: No Pertinent Family Hx Review of Systems ([facility]) Constitutional: no symptoms reported; No chills, No fever EENTM: no symptoms reported; No nose congestion, No throat pain, No throat swelling Respiratory: no symptoms reported; No cough, No dyspnea on exertion, No short of breath Cardiovascular: no symptoms reported; No chest pain, No edema, No palpitations Gastrointestinal: no symptoms reported; No abdominal pain, No constipation, No diarrhea, No nausea, No vomiting Genitourinary: no symptoms reported; No dysuria, No frequency, No hematuria : No Musculoskeletal: joint pain, joint swelling Skin: no symptoms reported Psychiatric/Neurological: No Symptoms Reported Physical Exam-([facility]) Physical Exam Vital Signs VS - Last 72 Hours, by Label 10/21/21 10/21/21 10/21/21 10/21/21 07:00 09:44 11:24 11:24 Temp 36.8 37.8 Pulse 73 Resp 18 24 B/P (MAP) 171/77 (108) 150/68 (95) Pulse Ox 98 96 O2 Delivery Room Air Room Air OxyMask OxyMask O2 Flow Rate 8 8 10/21/21 10/21/21 10/21/21 10/21/21 11:30 11:30 11:40 11:45 Resp 22 20 B/P (MAP) 138/60 (86) 146/63 (90) Pulse Ox 97 96 O2 Delivery OxyMask OxyMask OxyMask OxyMask O2 Flow Rate 6 6 6 4 10/21/21 10/21/21 10/21/21 10/21/21 11:50 12:00 12:00 12:10 Resp 16 14 16 B/P (MAP) 146/63 (90) 137/60 (85) 141/62 (88) Pulse Ox 98 100 98 O2 Delivery OxyMask OxyMask Room Air OxyMask O2 Flow Rate 6 6 6 10/21/21 10/21/21 10/21/21 10/21/21 12:25 12:25 12:50 16:00 Temp 37.9 36.7 36.1 Pulse 68 74 Resp 18 20 19 B/P (MAP) 133/63 (86) 130/63 (85) 130/60 (83) Pulse Ox 99 96 94 O2 Delivery Room Air Room Air Room Air Room Air 10/21/21 10/21/21 10/22/21 10/22/21 20:00 21:30 00:00 04:34 Temp 37.6 37.0 37.1 Pulse 73 73 80 Resp 22 19 20 B/P (MAP) 157/73 (101) 139/61 (87) 133/60 (84) Pulse Ox 95 94 95 O2 Delivery Room Air Room Air NIV CPAP Room Air 10/22/21 10/22/21 10/22/21 10/22/21 08:27 08:49 11:26 16:31 Temp 36.8 37.2 35.5 Pulse 68 77 96 Resp 21 20 20 B/P (MAP) 143/63 (89) 145/69 (94) 149/74 (99) Pulse Ox 98 93 95 O2 Delivery Room Air Room Air Room Air Room Air 10/22/21 19:57 Temp 35.6 Pulse 76 Resp 20 B/P (MAP) 155/75 (101) Pulse Ox 96 O2 Delivery Room Air Capillary Refill : General Appearance: WD/WN, no apparent distress HEENT: PERRL/EOMI Neck: non-tender, full range of motion, supple Respiratory: chest non-tender, lungs clear, normal breath sounds, no respiratory distress, no accessory muscle use Cardiovascular: normal peripheral pulses, regular rate, rhythm, no edema, no murmur Gastrointestinal: normal bowel sounds, non tender, soft, no organomegaly Back: no CVA tenderness, no vertebral tenderness Extremities: no pedal edema, no calf tenderness, normal capillary refill Neurologic/Psychiatric: financial cost analyst II-XII nml as tested, alert, normal mood/affect, oriented x 3 Lymphatic: no adenopathy Assessment/Plan Assessment/Plan (1) Osteoarthritis of left knee Status: Chronic Assessment & Plan: - POD #1 s/p Left total knee, pain management per Ortho Qualifiers: Qualified Codes: M17.12 - Unilateral primary osteoarthritis, left knee (2) Non-insulin dependent type 2 diabetes mellitus Status: Chronic Assessment & Plan: - Holding PO meds, SSI (3) HTN (hypertension) Status: Chronic Assessment & Plan: - Continue home meds Qualifiers: Qualified Codes: I10 - Essential (primary) hypertension (4) NGUYEN (obstructive sleep apnea) Status: Chronic Assessment & Plan: - Using home CPAP (5) Hypothyroidism Status: Chronic Assessment & Plan: - Continue home meds Qualifiers: Qualified Codes: E03.9 - Hypothyroidism, unspecified (6) DVT prophylaxis Status: Acute Assessment & Plan: - Lovenox Copy Copies To 1: ESPINOZA,LUCRECIA GABRIEL MD, MD Oct 22, 2021 21:24
--- NOTE | 2021-10-23 03:38 | DISCHARGE SUMMARY ---
DATE OF SERVICE: DIAGNOSES: 1. Left knee primary osteoarthritis. 2. Hypertension. 3. Diabetes. 4. Hypercholesterolemia. 5. Crohn's disease. 6. Liver disease, anxiety disorder, depression, hypothyroidism, allergic rhinitis, iron deficiency, tension headache, sleep apnea, urinary incontinence and morbid obesity. HISTORY: The patient is a 65-year-old female who underwent a left total knee arthroplasty on the day of admission. Postoperatively, she was progressing slowly. Wound was clean and dry. She had no calf tenderness. Negative Homans sign. CONDITION AT DISCHARGE: Good. DISCHARGE DISPOSITION: Transferred to the inpatient rehabilitation unit for continued physical and occupational therapy. Job ID: [id number] DocumentID: [id number] Dictated Date: 10/22/2021 18:07:41 Snaker Date: 10/23/2021 03:37:26 Dictated By: RONY SAMANIEGO MD
[2021-10-23 03:56] VITALS: BP 145/68
[2021-10-23 06:55] LABS: HEMOGLOBIN 11.3 g/dL (11.5-16.0)
[2021-10-23] MEDS: MULTIVIT W/MINERALS TAB (THERAGRAN M) PO SCH (07:02)
--- NOTE | 2021-10-23 07:04 | Progress Note ---
Standard Progress Note Progress Notes/Assess & Plan Date Seen by a Provider: Oct 23, 2021 Time Seen by a Provider: 07:04 Progress/Assessment & Plan no complaints radiogrphs--AP is rotated but components appear to be well positioned LLE--2plus DP pulse with brisk cap refill. intact DF and PF of toes and ankle sensation intact to light touch throughout s/p LTKA mobilize as able Final Diagnosis no complaints Vital Signs Date Time Temp Pulse Resp B/P (MAP) Pulse Ox O2 Delivery O2 Flow Rate FiO2 10/23/21 03:56 37.3 82 18 145/68 (93) 91 NIV CPAP 10/22/21 23:55 37.2 84 19 144/70 (94) 94 Room Air 10/22/21 21:00 95 Room Air 10/22/21 19:57 35.6 76 20 155/75 (101) 96 Room Air 10/22/21 16:31 35.5 96 20 149/74 (99) 95 Room Air 10/22/21 11:26 37.2 77 20 145/69 (94) 93 Room Air 10/22/21 08:49 Room Air 10/22/21 08:27 36.8 68 21 143/63 (89) 98 Room Air I & O 10/23/21 07:00 Intake Total 980 ml Output Total 104 ml Balance 876 ml Laboratory Tests Test 10/22/21 15:19 10/23/21 06:37 Range/Units Hemoglobin 11.5 11.3 L 11.5-16.0 g/dL Hematocrit 34 L 31 L 35-52 % LLE--incision clean and dry. No calf tenderness. Neg Malgorzata's s/p LTKA PT/OT DC to RONY JONES MD Oct 23, 2021 07:04
[2021-10-23 08:00] VITALS: BP 141/68
[2021-10-23] MEDS: ASPIRIN E.C. 81 MG (ECOTRIN) TAB PO SCH (08:36)
[2021-10-23] MEDS: LEVOTHYROXINE 100 MCG (LEVOTHROID) TAB PO SCH (08:36)
[2021-10-23] MEDS: meTOproloL SUCCINATE 50 MG (TOPROL XL) TAB PO SCH (08:37)
[2021-10-23] MEDS: oxyCODONE/APAP 7.5-325 MG (PERCOCET 7.5) TABLET PO PRN (08:37)
[2021-10-23] MEDS: ENOXAPARIN 30 MG/0.3 ML (LOVENOX) SYR SC SCH (08:37)
[2021-10-23] MEDS: SENNA W/DOCUSATE (SENOKOT S) TABLET PO SCH (08:37)
== END 2021-10-23 10:15 | DRG 470 ==
LOC: 4TH 07:01 → SURG 07:02 → 4TH 12:45
PROVIDERS: ADMIT Orthopaedic Surgery; ATTEND Orthopaedic Surgery
PROC: 0SRD0J9 Replacement of Left Knee Joint with Synthetic Substitute, Cemented, Open Approach (ICD-10-PCS; principal; 2021-10-21 09:28)
PROC: 5A09357 Assistance with Respiratory Ventilation, Less than 24 Consecutive Hours, Continuous Positive Airway Pressure (ICD-10-PCS; 2021-10-23)
DX: M17.12 Unilateral primary osteoarthritis, left knee (principal); K50.90 Crohn's disease, unspecified, without complications; Z68.44 Body mass index [BMI] 60.0-69.9, adult; I10 Essential (primary) hypertension; E11.9 Type 2 diabetes mellitus without complications; E78.00 Pure hypercholesterolemia, unspecified; K74.60 Unspecified cirrhosis of liver; F41.9 Anxiety disorder, unspecified; F32.A Depression, unspecified; E89.0 Postprocedural hypothyroidism; Z96.651 Presence of right artificial knee joint; Z88.5 Allergy status to narcotic agent; G47.33 Obstructive sleep apnea (adult) (pediatric); E61.1 Iron deficiency; G44.209 Tension-type headache, unspecified, not intractable; J30.9 Allergic rhinitis, unspecified; R32 Unspecified urinary incontinence; E66.01 Morbid (severe) obesity due to excess calories
CPT/HCPCS: 36415; 73560; 82947; 85014; 85018; 86850; 86900; 86901

== ENCOUNTER 2021-10-23 10:25 | Inpatient (IN) | payer MEDICARE ==
[~2021-10-23] VITALS: Ht 157.5 cm; Wt 161.2 kg
[~2021-10-23 10:25] MED LIST changes: +CHOL500050 PO; +CIPR500T5 PO; +DIPH25TA65 PO; +MELA10TA2 PO; +MELA1TAB20 PO; +OMEP20CA18 PO; +SPIR50TA4 PO
[2021-10-23 10:30] VITALS: BP 114/53
--- NOTE | 2021-10-23 11:10 | IRF PAI BIMS ---
BIMS BIMS IRF JADA BIMS: IRF JADA BIMS Response (Comments) Value Expression of Ideas and Wants (Verbal/Non Verbal) Without Difficulty 3 Understanding Verbal Content Understands 3 Should Brief Interview for Mental Status be Conducted Yes Repitition of Three Words Three 3 What year is it right now? Missed Year 0 What month is it right now? Accurate within 5 days 0 What week is it now? Incorrect or N/A 0 Recalls Socks Yes, No Cue Required 2 Recalls Blue Yes, No Cue Required 2 Recalls Bed Yes, After Cueing 1 Total 14 Brief Interview/Mental Status: No Notes: score of 12 obtained SONYA PRESTON OT Oct 23, 2021 11:10
--- NOTE | 2021-10-23 11:16 | Occupational Therapy Eval ---
OT Evaluation-General/PLF Medical Diagnosis Admission Date Medical Diagnosis: s/p L TKA Onset Date: Oct 21, 2021 Therapy Diagnosis Therapy Diagnosis: decreased ADL Status Height/Weight Height (Feet): 5 Height (Inches): 2.00 Weight (Pounds): 306 Weight (Ounces): 0.0 Precautions Precautions/Isolations: Fall Prevention, Standard Precautions, Pressure Ulcer Referral Physician: Tom Referral Reason: Evaluation/Treatment Medical History Additional Medical History PAST MEDICAL HISTORY: Hypertension, diabetes, hypercholesterolemia, Crohn's disease, cirrhosis of the liver, anxiety disorder, depression, hypothyroidism, allergic rhinitis, iron deficiency, tension headaches, sleep apnea, urinary incontinence. PAST SURGICAL HISTORY: Appendectomy, thyroidectomy, right total knee arthroplasty x2, right knee arthroscopy, hysterectomy, cholecystectomy, colon mass resection, right rotator cuff repair, cholecystectomy. Current History s/p L TKA 10/21/21. Transfer to ARU for continued skilled therapy and medication management. Social History Home: Single Level (mobile home) Current Living Status: Spouse Entry Into Home: Stairs With Railing Steps Into Home: 2 ADL-Prior Level of Function SCALE: Activities may be completed with or without assistive devices. 8-Faanvrezus-drikgjc completes the activity by him/herself with no assistance from a helper. 5-Set-up or Clean-up Assistance-helper sets up or cleans up; patient completes activity. Martin assists only prior to or following the activity. 4-Supervision or Touching Assistance-helper provides verbal cues and/or touching/steadying and/or contact guard assistance as patient completes activity. Assistance may be provided throughout the activity or intermittently. 3-Partial/Moderate Assistance-helper does LESS THAN HALF the effort. Martin lifts, holds or supports trunk or limbs, but provides less than half the effort. 2-Substantial/Maximal Assistance-helper does MORE THAN HALF the effort. Martin lifts or holds trunk or limbs and provides more than half the effort. 4-Dsssyjbjz-pypoae does ALL the effort. Patient does none of the effort to complete the activity. Or, the assistance of 2 or more helpers is required for the patient to complete the activity. If activity was not attempted, code reason: 7-Patient Refused. 9-Not Applicable-not attempted and the patient did not perform the activity before the current illness, exacerbation or injury. 10-Not Attempted due to Environmental Limitations-(lack of equipment, weather restraints, etc.). 88-Not Attempted due to Medical Conditions or Safety Concerns. ADL PLOF Comments Pt reports requiring some assistance with ADLs at OF, she uses SPC for functional mobility. Pt needs assistance with completing footwear, threading feet into pants, and assistance with washing feet in the shower. Pt's is present throughout the shower for safety. Pt has a walk in shower, and typically uses a folding chair with a towel in the seat. Self Care: Needed Some Help Functional Cognition: Independent DME/Equipment: Shower DME/Equipment Comments SPC OT Current Status Subjective Pt agreeable to OT evaluation and OT/PT cotreat. / pain in L knee Mental Status/Objective Patient Orientation: Person, Place, Time, Situation Attachments: Polar Pack Current Glasses/Contacts: Yes Hearing Aids: No Dentures/Partials: No Hand Dominance: Right Upper Extremity ROM WFL, BUE shoulder flexion to approx 150 degrees. Upper Extremity Coordination WFL Upper Extremity Sensation WFL Upper Extremity Strength grossly 4/5 BUEs. ADL-Treatment Eating (QC): 6 (IND with breakfast per report.) Oral Hygiene (QC): 6 (IND seated at sink.) Shower/Bathe Self (QC): 1 (Assist x2 required. Pt able to wash chest/abdomen, and UEs. Assist with buttocks, periarea, BLEs lower legs/feet and thighs.) Upper Body Dressing (QC): 3 (Min A with pullover night gown. Pt able to thread BUEs and over head, slight assistance managing down.) Lower Body Dressing (QC): 1 (assist x2, assist all parts) On/Off Footwear (QC): 1 (total assist with gripper socks.) Toileting Hygiene (QC): 1 (Assist x2, assist with clothing managment, pt performed hygine seated.) Other Treatments OT evaluation complete. OT/PT cotreat due to skill of 2 clinicians required which a rehab rn could not perform in order to coordinate UE/LEs, decrease fall risk, and due to pt's limitations in strength, activity tolerance, mobility and transfers. OT focused on UE placement, cues for sequencing and safety, and ADLs, PT focused on LE placement, gross overall movement, transfers and mob ility. Pt completed functional mobility/transfers using FWW, then w/c mobility to her room. Pt completed sponge bath at sink, requests to transfer to toilet. Pt transferred to toilet, completed toileting and dressing, then returned to w/c. Pt taken back to therapy gym, transferring to EOM, then 3x5 sit to stand transfers. During stand, pt states she needs to pull her underwear up, pt able to complete herself, although in bathroom she refused to attempt. Pt taken back to her room, transferring to recliner. Post tx, pt in recliner, call light in reach and all needs met. Pt requires min A with rolling, max A supine <-> sit, mod A sit <-> stand, min A transfers. Pt requires frequent cues for safety and positioning. She can propel w/c 50' with min A, very slowly, required assistance with turning. Education OT Patient Education: Correct positioning, Energy conservation, Modified ADL techniques, Progress toward Goal/Update tx plan, Purpose of tx/functional activities, Rehab process Teaching Recipient: Patient Teaching Methods: Discussion Response to Teaching: Verbalize Understanding OT Short Term Goals Short Term Goals Time Frame: Nov 04, 2021 Shower/bathe self: 3 Lower body dressin Putting on/taking off footwear: 3 OT Halfway Goals Halfway Goals Time Frame: Nov 20, 2021 Eating (QC): 6 Oral Hygiene (QC): 6 Toileting Hygiene (QC): 6 Shower/Bathe Self (QC): 4 Upper Body Dressing (QC): 6 Lower Body Dressing (QC): 4 On/Off Footwear (QC): 4 Additional Goals: 1-Demonstrate ADL Tasks, 2-Verbalize Understanding, 3- ImproveStrength/Shanice 1=Demonstrate adherence to instructed precautions during ADL tasks. 2=Patient will verbalize/demonstrate understanding of assistive devices/modifications for ADL. 3=Patient will improve strength/tolerance for activity to enable patient to perform ADL's. OT Education/Plan Problem List/Assessment Assessment: Decreased Activ Tolerance, Decreased UE Strength, Impaired Funct Balance, Impaired I ADL's, Impaired Self-Care Skills Discharge Recommendations Plan/Recommendations: Continue POC Equpiment Recommendations-D/C: Bath Chair, Parts Salesperson, Sock Aide Treatment Plan/Plan of Care Patient would benefit from OT for education, treatment and training to promote independence in ADL's, mobility, safety and/or upper extremity function for ADL's. Plan of Care: ADL Retraining, Functional Mobility, Group Exercise/Act as Ind, UE Funct Exercise/Act Treatment Duration: Nov 20, 2021 Frequency: At least 5 of 7 days/Wk (IRF) Estimated Hrs Per Day: 1.5 hours per day Rehab Potential: Fair Time/GCodes Start Time: 10:10 Stop Time: 11:40 Total Time Billed (hr/min): 90 Billed Treatment Time [id number] OT eval, [id number] OT/PT cotreat 1, EVM (10'), ADL 2 (35'), FA 3 (45') SONYA PRESTON OT Oct 23, 2021 11:16
[2021-10-23] MEDS ORDERED: LOPERAMIDE 2 MG (IMODIUM) TABLET PO PRN (11:30)
[2021-10-23] MEDS ORDERED: diphenhydrAMINE 50 MG/ML INJ (BENADRYL) IVP PRN (11:30)
[2021-10-23] MEDS ORDERED: BISACODYL 10 MG SUPP (DULCOLAX) PR PRN (11:30)
[2021-10-23] MEDS ORDERED: ACETAMINOPHEN 325 MG TABLET PO PRN (11:30)
[2021-10-23] MEDS ORDERED: ALPRAZolam 0.25 MG (XANAX) TAB PO PRN (11:30)
[2021-10-23] MEDS ORDERED: guaiFENesin/CODEINE (ROBITUSSIN AC) 10ML UDC PO PRN (11:30)
[2021-10-23] MEDS ORDERED: fentaNYL INJ 100 MCG/2 ML AMP IVP PRN (11:30)
[2021-10-23] MEDS ORDERED: ONDANSETRON 4 MG (ZOFRAN) ORAL DISSOLVE TAB PO PRN (11:30)
[2021-10-23] MEDS ORDERED: DOCUSATE SODIUM 100 MG (COLACE) CAP PO PRN (11:30)
[2021-10-23] MEDS ORDERED: ONDANSETRON 4 MG/2 ML (SDV) Z0FRAN IVP PRN (11:30)
[2021-10-23] MEDS ORDERED: FLEET ENEMA ADULT 1 EA BTL PR PRN (11:30)
[2021-10-23] MEDS ORDERED: diphenhydrAMINE 25 MG TAB (BENADRYL) PO PRN (11:30)
[2021-10-23] MEDS ORDERED: CALCIUM CARBONATE 500 MG (TUMS) TAB.CHEW PO PRN (11:30)
[2021-10-23] MEDS ORDERED: LACTULOSE SYRUP 10GM/15ML (ENULOSE) 30ML UDC PO PRN (11:30)
--- NOTE | 2021-10-23 11:49 | Physical Therapy Evaluation ---
PT Evaluation-General Medical Diagnosis Admission Date Oct 23, 2021 at 10:25 Medical Diagnosis: s/p L TKA Onset Date: Oct 21, 2021 Therapy Diagnosis Therapy Diagnosis: impaired mobility, strength, endurance, ROM Height/Weight Height (Feet): 5 Height (Inches): 2.00 Weight (Pounds): 306 Weight (Ounces): 0.0 Precautions Precautions/Isolations: Fall Prevention, Standard Precautions, Pressure Ulcer Weight Bear Status Left Lower Extremity: Left Weight Bearing/Tolerated Referral Physician: Sasha Santos DO Reason for Referral: Evaluation/Treatment Medical History Additional Medical History PAST MEDICAL HISTORY: Hypertension, diabetes, hypercholesterolemia, Crohn's disease, cirrhosis of the liver, anxiety disorder, depression, hypothyroidism, allergic rhinitis, iron deficiency, tension headaches, sleep apnea, urinary incontinence. PAST SURGICAL HISTORY: Appendectomy, thyroidectomy, right total knee arthroplasty x2, right knee arthroscopy, hysterectomy, cholecystectomy, colon mass resection, ____ right rotator cuff repair, cholecystectomy. Reviewed History: Yes Social History Home: Single Level (mobile home) Current Living Status: Spouse Entry Into Home: Stairs With Railing PT Steps Into Home: 2 Prior Prior Level of Function SCALE: Activities may be completed with or without assistive devices. 2-Usvrcoyhoe-irnsrvd completes the activity by him/herself with no assistance from a helper. 5-Set-up or Clean-up Assistance-helper sets up or cleans up; patient completes activity. Moose assists only prior to or following the activity. 4-Supervision or Touching Assistance-helper provides verbal cues and/or touchi ng/steadying and/or contact guard assistance as patient completes activity. Assistance may be provided throughout the activity or intermittently. 3-Partial/Moderate Assistance-helper does LESS THAN HALF the effort. Moose lifts, holds or supports trunk or limbs, but provides less than half the effort. 2-Substantial/Maximal Assistance-helper does MORE THAN HALF the effort. Moose lifts or holds trunk or limbs and provides more than half the effort. 7-Cxijellll-rwhmei does ALL the effort. Patient does none of the effort to complete the activity. Or, the assistance of 2 or more helpers is required for the patient to complete the activity. If activity was not attempted, code reason: 7-Patient Refused. 9-Not Applicable-not attempted and the patient did not perform the activity before the current illness, exacerbation or injury. 10-Not Attempted due to Environmental Limitations-(lack of equipment, weather restraints, etc.). 88-Not Attempted due to Medical Conditions or Safety Concerns. Bed Mobility: 6 Transfers (B,C,W/C): 6 Gait: 6 Indoor Mobility (Ambulation): Independent Stairs: Independent Patient states she used a SPC PT Evaluation-Current Subjective Patient in bed pre tx, agrees to PT, has 9/10 pain in left knee. Will be co-treating with OT for part of tx due to poor patient mobility, strength, endurance, severe pain with activity, coordinate UE and LE with activity, safety and reduce risk of falls. Pt/Family Goals to be independent at home Objective Patient Orientation: Person, Place, Situation ROM/Strength ROM Lower Extremities left knee flexion 70 degrees, extension +15 degrees Sensory Vision: Wears Glasses Hearing: Functional Hand Dominance: Right Sensation Right Lower Extremit: Intact Sensation Left Lower Extremity: Intact Transfers Roll Left & Right (QC): 3 Sit to Lying (QC): 2 Lying to Sitting/Side of Bed(Q: 2 Sit to Stand (QC): 3 Chair/Iet-uk-Tlchg Xfer(QC): 3 Toilet Transfer (QC): 3 Car Transfer (QC): 88 Patient performs rolling with min assist, supine <-> sit max assist, sit <-> st and mod assist, transfers min assist, patient is not safe to perform a car transfer at this time. She needs frequent cues for safety and positioning. Gait Does the Patient Walk?: Yes Mode of Locomotion: Walk Anticipated Mode of Locomotion: Walk Walk 10 feet (QC): 88 Walk 50 ft with 2 Turns(QC): 88 Walk 150 ft (QC): 88 Walking 10ft/uneven surface-QC: 88 Distance: 8' Gait Assistive Device: FWW Comments/Gait Description Patient can ambulate 8' with a rolling walker with CGA, WC follow, little to no foot clearance, step-to gait pattern Wheelchair Training Does the Pt Use a Wheelchair?: Yes Distance: 50' Wheel 50 ft with 2 turns (QC): 3 Wheel 150 ft (QC): 88 Type of Wheelchair: Manual Patient can propel a manual WC 50' with min assist, very slow, needs more assist with turning Stairs 1 Step (curb) (QC): 88 4 Steps (QC): 88 12 Steps (QC): 88 Balance Sitting Static: Normal Sitting Dynamic: Normal Standing Static: Poor Standing Dynamic: Poor Picking up an Object (QC): 88 Treatment sit to stand from an elevated therapy table 3 sets of 5. PT performed bed mobility and transfers, ambulation, WC mobility, safety and positioning during bathing and dressing and ADL's, OT performed bathing, dressing, ADL's, UE positioning and safety during activity. Assessment/Needs Patient in recliner post tx with nurse call, phone, tray, all needs met. Patient has impaired mobility, strength, endurance, ROM. Needs max assist for supine <-> sit, poor left knee ROM. Rehab Potential: Fair PT Short Term Goals Short Term Goals Time Frame: Oct 30, 2021 Roll Left & Right: 4 Sit to lyin Lying to sitting on side of be: 3 Sit to stand: 4 Chair/oiy-qk-skkyv transfer: 4 Walk 10 feet: 4 Walk 50 feet with two turns: 4 PT Early Childhood Special Educator Goals Nursing Home Goals PT Nursing Home Goals Time Frame: Nov 13, 2021 Roll Left & Right (QC): 6 Sit to Lying (QC): 4 (SBA) Lying-Sitting on Side/Bed(QC): 4 (SBA) Sit to Stand (QC): 5 Chair/Zez-cm-Psgzt Xfer(QC): 5 Toilet Transfer (QC): 5 Car Transfer (QC): 3 Does the Patient Walk: Yes Walk 10 feet (QC): 5 Walk 50ft with 2 Turns (QC): 5 Walk 150 ft (QC): 5 Walking 10ft on Uneven Surface: 4 1 Step (curb) (QC): 4 4 Steps (QC): 4 12 Steps (QC): 88 Picking up an Object (QC): 5 Wheel 50 feet with 2 turns (QC: 4 Wheel 150 feet: 4 PT Plan Problem List Problem List: Activity Tolerance, Functional Strength, Safety, Balance, Gait, Transfer, Bed Mobility, ROM Treatment/Plan Treatment Plan: Continue Plan of Care Treatment Plan: Bed Mobility, Education, Functional Activity Shanice, Functional Strength, Group Therapy, Gait, Safety, Therapeutic Exercise, Transfers Treatment Duration: Nov 13, 2021 Frequency: At least 5 of 7 days/Wk (IRF) Estimated Hrs Per Day: 1.5 hours per day Patient and/or Family Agrees t: Yes Safety Risks/Education Patient Education: Gait Training, Transfer Techniques, Correct Positioning, W/C Management, Safety Issues Teaching Recipient: Patient Teaching Methods: Demonstration, Discussion Response to Teaching: Reinforcement Needed Discharge Recommendations Plan Patient will perform bed mobility and transfer training, balance and endurance training, functional strengthening, stair training, gait training, and education, to improve functional mobility and independence at home. Therapy Discharge Recommendati: Scheduled Assistance, Home & Family, Post Acute PT Time/GCodes Time In: 1000 Time Out: 1140 Total Billed Treatment Time: 90 Total Billed Treatment 1 visit EVM 10' EX 15' FA 65' PT eval from [id number], OT eval from [id number], co-treat from [id number] BRANDY ZAMUDIO PT Oct 23, 2021 11:49
--- NOTE | 2021-10-23 13:27 | Progress Note ---
[facility] 10/23/21 1327: Progress Note CC: S/P Left TKA HPI: 65 yo female with longstanding left knee pain. Radiographs revealed severe medial and patellofemoral arthrosis requiring a total knee arthroplasty. Reports hip pain that seems to be caused by her knee. Ultimately, She reports loss of daily function due to the knee and because of this, elected to proceed with surgical intervention. Patient is currently 2 days Post-Op and has had return of bowel function and tolerating regular diet. States pain is controlled PMH: Hypertension, diabetes, hypercholesterolemia, Crohn's disease, cirrhosis of the liver, anxiety disorder, depression, hypothyroidism, allergic rhinitis, iron deficiency, tension headaches, sleep apnea, urinary incontinence. PSH:Appendectomy, thyroidectomy, right total knee arthroplasty x2, right knee arthroscopy, hysterectomy, cholecystectomy, colon mass resection, right rotator cuff repair, cholecystectomy. ALL: PENICILLIN, SULFA, MYCINS, FLU VACCINE, TETANUS VACCINE, ZOCOR, LIPITOR, DILAUDID, MORPHINE, NIACIN, COVID VACCINE AND ADHESIVE TAPE. Home Meds: Imodium, Florastor, diclofenac, desvenlafaxine, spironolactone, metoprolol, Synthroid, melatonin, cyanocobalamin, Zetia, iron, omeprazole, metformin. SH: Does not smoke, drink, or use recreational drugs FH: Significant for ischemic heart disease, stroke and diabetes. ROS: GENERAL: Deneis Fevers, chills HEENT: Denies eye pain, ear pain Respiratory: denies Shortness of breath or cough HEART: Deneis chest pain or palpitation ABDOMEN: Chronic diarrhea due to GI surgery, denies abdominal pain EXTREMITIES: No calf pain or numbness EXAM: GENERAL: The patient is well-developed, well-nourished, in no acute distress. Morbidly Obese HEENT: Normocephalic, atraumatic. Pupils are equal, round and reactive to light. Oropharynx is clear. NECK: Supple, with no lymphadenopathy. LUNGS: Clear to auscultation bilaterally. HEART: Regular rate and rhythm. ABDOMEN: Soft, nontender, nondistended. EXTREMITIES: The left knee with minimal ecchymosis, Incision intact. No surrounding fever or erythema Lab/Images: knee x-ray IMPRESSION: Satisfactory postop appearance to the left knee. Assessment: S/P Left TKA HTN DM hypercholesterolemia Liver cirrhosis hypothyroidism, Iron deficiency Urinary incontince anxiety Plan Consult PT/OT In-patient rehab per protocol Continue home meds as directed Continue DVT prophylaxis Continue IS SASHA TILLMAN DO 10/24/21 0530: Supervisory-Addendum Brief Verification & Attestation Participated in pt care: history, MDM, physical Personally performed: exam, history, MDM, supervision of care Care discussed with: Medical Student Procedures: n/a Results interpretation: Verified all documentation Verification and Attestation of Medical Student E/M Service A medical student performed and documented this service in my presence. I reviewed and verified all information documented by the medical student and made modifications to such information, when appropriate. I personally performed the physical exam and medical decision making. Sasha Tillman, Oct 24, 2021,05:30 [facility] Oct 23, 2021 13:27 SASHA TILLMAN DO Oct 24, 2021 05:30
--- NOTE | 2021-10-23 14:02 | PM&R Post Admission Assessment ---
PM&R HP Date of Visit: Oct 23, 2021 Time of Visit: 17:00 History of Present Illness Chief complaint: Left total knee replacement postop day #2 History of present illness: This is a 65-year-old white female with super morbid obesity with BMI of 62 who presents following an uncomplicated left total knee replacement by Dr. Noriega. Patient currently is handling the pain very well. Patient is and has help at home. Her primary care provider is Dr. Vega. CC: S/P Left TKA HPI: 65 yo female with longstanding left knee pain. Radiographs revealed severe medial and patellofemoral arthrosis requiring a total knee arthroplasty. Reports hip pain that seems to be caused by her knee. Ultimately, She reports loss of daily function due to the knee and because of this, elected to proceed with surgical intervention. Patient is currently 2 days Post-Op and has had return of bowel function and tolerating regular diet. States pain is controlled PMH: Hypertension, diabetes, hypercholesterolemia, Crohn's disease, cirrhosis of the liver, anxiety disorder, depression, hypothyroidism, allergic rhinitis, iron deficiency, tension headaches, sleep apnea, urinary incontinence. PSH:Appendectomy, thyroidectomy, right total knee arthroplasty x2, right knee arthroscopy, hysterectomy, cholecystectomy, colon mass resection, right rotator cuff repair, cholecystectomy. ALL: PENICILLIN, SULFA, MYCINS, FLU VACCINE, TETANUS VACCINE, ZOCOR, LIPITOR, DILAUDID, MORPHINE, NIACIN, COVID VACCINE AND ADHESIVE TAPE. Home Meds: Imodium, Florastor, diclofenac, desvenlafaxine, spironolactone, metoprolol, Synthroid, melatonin, cyanocobalamin, Zetia, iron, omeprazole, metformin. SH: Does not smoke, drink, or use recreational drugs FH: Significant for ischemic heart disease, stroke and diabetes. ROS: GENERAL: Deneis Fevers, chills HEENT: Denies eye pain, ear pain Respiratory: denies Shortness of breath or cough HEART: Deneis chest pain or palpitation ABDOMEN: Chronic diarrhea due to GI surgery, denies abdominal pain EXTREMITIES: No calf pain or numbness EXAM: GENERAL: The patient is well-developed, well-nourished, in no acute distress. Morbidly Obese HEENT: Normocephalic, atraumatic. Pupils are equal, round and reactive to light. Oropharynx is clear. NECK: Supple, with no lymphadenopathy. LUNGS: Clear to auscultation bilaterally. HEART: Regular rate and rhythm. ABDOMEN: Soft, nontender, nondistended. EXTREMITIES: The left knee with minimal ecchymosis, Incision intact. No surrounding fever or erythema Lab/Images: knee x-ray IMPRESSION: Satisfactory postop appearance to the left knee. Assessment: S/P Left TKA HTN DM hypercholesterolemia Liver cirrhosis hypothyroidism, Iron deficiency Urinary incontince anxiety Plan Consult PT/OT In-patient rehab per protocol Continue home meds as directed Continue DVT prophylaxis Continue IS [facility] HUN[facility] [employer] [place] Oct 23, 2021 13:27 <Created by LUPIS HUNT [employer]> Past Gbdeflb-Fzabhb-Zdpynn Hx Past Med/Social Hx: Reviewed Nursing Past Med/Soc Hx, Reviewed and Corrections made Patient Social History Marrital Status: Employed/Student: unemployed Alcohol Use: Denies Use Smoking Status: Never a Smoker 2nd Hand Smoke Exposure: No Recent Hopitalizations: No Seasonal Allergies Seasonal Allergies: Yes Past Medical History Surgeries: Appendectomy, Hysterectomy, Thyroidectomy Currently Using CPAP: Yes Currently Using BIPAP: No Cardiac: High Cholesterol, Hypertension, Irregular Heartbeat Reproductive: No Sexually Transmitted Disease: No HIV/AIDS: No Hysterectomy Gastrointestinal: Chronic Diarrhea, Cirrhosis Musculoskeletal: Osteoporosis, Arthritis Endocrine: Hypothyroidsim Loss of Vision: Denies Hearing Impairment: Denies Psychosocial: Anxiety, Depression History of Blood Disorders: Yes (HX ANEMIA) Adverse Reaction to Blood Hoffman: No (HAS HAD BLOOD WITH NO REACTION) Family History No Pertinent Family Hx Prior Level of Function Bed Mobility: 6 Transfers: 6 Gait: 6 Indoor Mobility (Ambulation): Independent Stairs: Independent Self Care: Needed Some Help Functional Cognition: Independent Current Level of Fuctioning Roll Left to Right: 3 Sit to Lyin Lying to Sitting/Side of Bed: 2 Sit to Stand: 3 Chair/Bwg-gq-Xeiyq Xfer: 3 Car Transfer: 88 Does the Patient Walk: Yes Mode of Locomotion: Walk Anticipated Mode of Locomotion: Walk Walk 10 feet: 88 Walk 50 ft with 2 Turns: 88 Walk 150 ft: 88 Walking 10ft on uneven surface: 88 Gait Assistive Device: FWW Does the Pt Use a Wheelchair: Yes Wheelchair Distance: 50' Wheel 50 ft with 2 turns: 3 Wheel 150 ft: 88 Type of Wheelchair: Manual 1 Step (curb): 88 4 Steps: 88 12 Steps: 88 Picking up an Object: 88 Eatin (IND with breakfast per report.) Oral Hygiene: 6 (IND seated at sink.) Shower/Bathe Self: 1 (Assist x2 required. Pt able to wash chest/abdomen, and UEs. Assist with buttocks, periarea, BLEs lower legs/feet and thighs.) Upper Body Dressin (Min A with pullover night gown. Pt able to thread BUEs and over head, slight assistance managing down.) Lower Body Dressin (assist x2, assist all parts) On/Off Footwear: 1 (total assist with gripper socks.) Toileting Hygiene: 1 (Assist x2, assist with clothing managment, pt performed hygine seated.) PM&R Allergy/Meds/Data Review Allergies Coded Allergies: COVID-19 (SARS-CoV-2) vaccine, meri (Unverified Allergy, Severe, A naphylaxis, 10/14/21) erythromycin base (Unverified Allergy, Severe, Hives, 10/14/21) Penicillins (Verified Allergy, Intermediate, HIVES, 10/14/21) Sulfa (Sulfonamide Antibiotics) (Verified Allergy, Intermediate, HIVES, 10/14/21) adhesive tape (Verified Allergy, Intermediate, HIVES, 10/14/21) tetanus and diphtheria toxoids (Verified Allergy, Intermediate, HIVES, 10/14/21) Influenza Virus Vaccines (Verified Adverse Reaction, Mild, NAUSEA, 10/14/21) atorvastatin (Verified Adverse Reaction, Mild, NAUSEA, 10/14/21) hydromorphone (Verified Adverse Reaction, Mild, hallucinations, 10/14/21) morphine (Verified Adverse Reaction, Mild, hallcination, 10/14/21) simvastatin (Verified Adverse Reaction, Mild, NAUSEA, 10/14/21) Home Medications Scheduled Ascorbate Calcium (Vitamin C), 500 MG PO HS, (Reported) Cholecalciferol (Vitamin D3) (Vitamin D3), 125 MCG PO DAILY, (Reported) Ciprofloxacin HCl (Ciprofloxacin HCl), 500 MG PO BID, (Reported) Ezetimibe (Zetia), 10 MG PO DAILY, (Reported) Ferrous Sulfate (Ferrous Sulfate), 325 MG PO HS, (Reported) Levothyroxine Sodium (Levothyroxine Sodium), 100 MCG PO DAILY, (Reported) Metformin HCl (Metformin HCl), 500 MG PO HS, (Reported) Metoprolol Succinate (Metoprolol Succinate), 25 MG PO DAILY, (Reported) Omeprazole (Omeprazole), 20 MG PO DAILY, (Reported) Sertraline HCl (Sertraline HCl), 100 PO DAILY, (Reported) Spironolactone (Spironolactone), 50 MG PO DAILY, (Reported) Scheduled PRN Diphenhydramine HCl (Benadryl Allergy), 25-50 MG PO Q6H PRN for ALLERGY SYMPTOMS, (Reported) Melatonin (Melatonin), 10 MG PO HS PRN for SLEEP, (Reported) Discontinued Medications Acetaminophen (Tylenol), 325 MG PO PRN, (Reported) Discontinued Reason: No Longer Taking Cholecalciferol (Vitamin D3) (Vitamin D3), 100 MCG PO DAILY, (Reported) Discontinued Reason: Prescription changed Melatonin/Pyridoxine (Melatonin 5 mg Tablet), 5 MG PO HS, (Reported) Discontinued Reason: Prescription changed Melatonin/Pyridoxine HCl (B6) (Melatonin 10 mg Tablet), 1 EACH PO HS, (Reported) Discontinued Reason: Prescription changed Metoprolol Succinate (Metoprolol Succinate), 25 MG PO DAILY, (Reported) Discontinued Reason: Duplicate Order Sertraline HCl (Zoloft), 50 MG PO DAILY, (Reported) Discontinued Reason: No Longer Taking Spironolactone (Spironolactone), 25 MG PO DAILY, (Reported) Discontinued Reason: Prescription changed Current Medications Current Medications Reviewed Review of Systems Constitutional: see HPI, malaise, weakness EENTM: no symptoms reported Respiratory: no symptoms reported Cardiovascular: no symptoms reported Gastrointestinal: no symptoms reported Genitourinary: no symptoms reported Musculoskeletal: joint pain Skin: no symptoms reported Psychiatric/Neurological: Anxiety All Other Systems Reviewed Negative Unless Noted: Yes Physical Exam Physical Exam Vital Signs Capillary Refill : Height, Weight, BMI Height: 5'2.00" Weight: 306lbs. 0.0oz. [id number]; 61.91 BMI Method:Stated General Appearance: No Apparent Distress, WD/WN, Chronically ill, Obese Eyes: Bilateral Eye Normal Inspection, Bilateral Eye PERRL HEENT: PERRL/EOMI, Normal ENT Inspection, Pharynx Normal Neck: Full Range of Motion, Normal Inspection, Non Tender, Supple, Carotid Bruit Respiratory: Chest Non Tender, Lungs Clear, Normal Breath Sounds, No Accessory Muscle Use, No Respiratory Distress Cardiovascular: Regular Rate, Rhythm, No Edema, No Gallop, No JVD, No Murmur, Normal Peripheral Pulses Gastrointestinal: Normal Bowel Sounds, No Organomegaly, No Pulsatile Mass, Non Tender, Soft Back: Normal Inspection, No CVA Tenderness, No Vertebral Tenderness Extremity: Normal Capillary Refill, Normal Inspection, Normal Range of Motion (Except left leg), Non Tender, No Calf Tenderness, No Pedal Edema Neurologic/Psychiatric: Alert, Oriented x3, No Motor/Sensory Deficits, Normal Mood/Affect, Abnormal Gait, Motor Weakness (Left leg) Skin: Normal Color, Warm/Dry Lymphatic: No Adenopathy PM&R Medical Assessment & Plan REHAB/MEDICAL ASSESSMENT AND PLAN: REHAB IMPAIRMENT GROUP: Left total knee replacement ETIOLOGIC DIAGNOSIS: Left total knee replacement The comorbidities that impact the patients function and/or functional outcome by: Super morbid obesity, diabetes, hypertension REHAB PLAN: The patient is being admitted to our comprehensive inpatient rehabilitation facility and can tolerate the intensity of service consisting of at least: 180 minutes of therapy a day, 5 out of 7 days a week Rehab treatment will consist of: PT and OT will focus on regaining function with the use of assistive devices in order to return back to independent living The patient/family has a good understanding of our discharge process and will benefit from an interdisciplinary inpatient rehabilitation program. The patient has potential to make improvement and is in need of at least two of the following multidisciplinary therapies including but not limited to physical, occupational, speech, and prosthetics and orthotics. Additionally the patient will need services from respiratory, nutritional services, wound care, psychology, etc. (Customize this to each patient). Given the patients complex condition and risk of further medical complications, rehabilitation services cannot be safely or effectively provided at a lower level of care such as a shelter facility. BARRIERS TO DISCHARGE: Super morbid obesity ESTIMATED LOS: 7 days DISPOSITION: Home with RELEVANT CHANGES SINCE PREADMISSION SCREENING: I have compared the patients medical and functional status at the time of the preadmission screening and there are: No changes PROGNOSIS: Good REHABILITATION GOALS: 1. PT and OT will focus on regaining function with the use of assistive devices in order to return back to independent living All the above goals were reviewed with the patient and he/she is in agreement. By signing this document, I acknowledge that I have personally performed a full physical examination on this patient within 24 hours of admission to this inpatient rehabilitation facility and have determined the patient to be able to tolerate the above course of treatment at an intensive level for a reasonable period of time. I will be completing a detailed individualized Plan of Care for this patient by day #4 of the patients stay based upon the Preadmission Screen, the Post-Admission Evaluation, and the therapy evaluations. Admission Dx/Comorbidities: (1) Status post left knee replacement ICD Codes: Z96.652 - Presence of left artificial knee joint (2) Non-insulin dependent type 2 diabetes mellitus Status: Chronic ICD Codes: E11.9 - Type 2 diabetes mellitus without complications (3) HTN (hypertension) Status: Chronic ICD Codes: I10 - Essential (primary) hypertension (4) NGUYEN (obstructive sleep apnea) Status: Chronic ICD Codes: G47.33 - Obstructive sleep apnea (adult) (pediatric) (5) Hypothyroidism Status: Chronic ICD Codes: E03.9 - Hypothyroidism, unspecified (6) Pacemaker ICD Codes: Z95.0 - Presence of cardiac pacemaker (7) Chronic diastolic heart failure ICD Codes: I50.32 - Chronic diastolic (congestive) heart failure Assessment/Plan Assessment and Plan Assess & Plan/Chief Complaint Assessment: Status post left total knee replacement postop day #2 Super morbid obesity Diabetes Hypertension NGUYEN on CPAP Hyperlipidemia Hypothyroidism Pacemaker Plan: Home meds Pain control Bowel regimen Rehab protocol CULLEN TILLMAN DO Oct 23, 2021 14:02
[2021-10-23] MEDS: oxyCODONE/APAP 7.5-325 MG (PERCOCET 7.5) TABLET PO PRN ×2 (14:12→22:07)
[2021-10-23 20:00] VITALS: BP 154/70
[2021-10-23] MEDS: ENOXAPARIN 30 MG/0.3 ML (LOVENOX) SYR SC SCH (20:59)
[2021-10-23] MEDS ORDERED: SENNA W/DOCUSATE (SENOKOT S) TABLET PO SCH (21:00)
[2021-10-23] MEDS: polyethylene glycoL POWDER 17 GM (MIRALAX) PACK PO SCH (21:13)
[2021-10-23] MEDS: DOCUSATE SODIUM 100 MG (COLACE) CAP PO SCH (21:13)
[2021-10-23] MEDS: SENNA W/DOCUSATE (SENOKOT S) TABLET PO SCH (21:14)
[2021-10-23] MEDS: MELATONIN 3 MG TABLET PO PRN (23:54)
[2021-10-24] MEDS: LEVOTHYROXINE 100 MCG (LEVOTHROID) TAB PO SCH (06:05)
[2021-10-24] MEDS: MULTIVIT W/MINERALS TAB (THERAGRAN M) PO SCH (06:05)
--- NOTE | 2021-10-24 06:05 | Individualized Plan of Care ---
Individualized Plan of Care Rehab Nursing IPOC Order Admission Date Oct 23, 2021 at 10:25 Current Orders Orders Transfer - Bed/Room/Location (10/23/21 10:25) Admission Order(Inpt,Obs,Sdc) (10/23/21 11:24) Vital Signs: Per Unit Policy ( 08,16,00 (10/23/21 11:24) Rajiv Hose 09,21 (10/23/21 11:24) Sequential Compression Device (10/23/21 11:24) Polyethylene Bag Machine Operator-Inpt Rehab Con (10/23/21 11:24) Rehab Nursing Orders-Ipoc (10/23/21 11:24) Physical Therapy Rehab Orders (10/23/21 11:24) Occupational Therapy Rehab Ord (10/23/21 11:24) Speech Therapy Rehab Orders (10/23/21 11:24) Cbc With Automated Diff (10/24/21 06:00) Comprehensive Metabolic Panel (10/24/21 06:00) Precautions (Aru) (10/23/21 11:24) Weekly Weight WEEK (10/23/21 11:24) Rehab-Intensity Of Therapy (10/23/21 11:24) Initiate Admission Nursing Pro .admission (10/23/21 11:24) Alprazolam Tablet (Xanax Tablet) (10/23/21 11:30) Calcium Carbonate Chew Tablet (Antacid C (10/23/21 11:30) Diphenhydramine Tablet (Benadryl Tablet) (10/23/21 11:30) Docusate Sodium Capsule (Colace Capsule) (10/23/21 21:00) Docusate Sodium Capsule (Colace Capsule) (10/23/21 11:30) Bisacodyl Suppository (Dulcolax Supposit (10/23/21 11:30) Lactulose Oral Solution (Enulose Oral So (10/23/21 11:30) Na Phos/Na Biphos Enema (Fleet Enema Koko (10/23/21 11:30) Guaifenesin/Codeine Syrup (Robitussin Ac (10/23/21 11:30) Loperamide Tablet (Imodium Tablet) (10/23/21 11:30) Melatonin Tablet (Melatonin Tablet) (10/23/21 11:30) Polyethylene Glycol Powder Pkt (Miralax (10/23/21 21:00) Ondansetron Oral Dissolve Tab (Zofran (10/23/21 11:30) Senna S Tablet (Senokot S Tablet) (10/23/21 21:00) Acetaminophen Tablet/Caplet (Tylenol T (10/23/21 11:30) Code/Resuscitation (10/23/21 11:24) Sequential Compression Device ONCE (10/23/21 11:24) Initiate Admission Nursing Pro .admission (10/23/21 11:24) Dressing Order (Intervention) DAILY (10/23/21 11:25) Incentive Spirometry (Nursing) Q2H (10/23/21 11:25) Rajiv Hose (10/23/21 11:25) General/Regular (10/23/21 Lunch) Aspirin Enteric Coated Tablet (Ecotrin T (10/24/21 09:00) Enoxaparin Injection (Lovenox Injection) (10/23/21 21:00) Levothyroxine Tablet (Synthroid Tablet) (10/24/21 06:30) Therapeutic Multivitamin Tab (Vitamins, (10/24/21 07:00) Senna S Tablet (Senokot S Tablet) (10/23/21 21:00) Ondansetron Injection (Zofran Injectio (10/23/21 11:30) Diphenhydramine Injection (Benadryl Inje (10/23/21 11:30) Fentanyl Inj (Sublimaze Injection) (10/23/21 11:30) Metoprolol Succinate (Xl) Tab (Toprol Xl (10/24/21 09:00) Oxycodone/Apap 7.5/325mg Tab (Percocet (10/23/21 11:30) Patient Visit (10/23/21 ) Pt Eval Moderate Complexity (10/23/21 ) Exercise Therap, Ea 15 Min (10/23/21 ) Functional Activities, Ea 15 (10/23/21 ) Patient Visit (10/24/21 ) Exercise Therap, Ea 15 Min (10/24/21 ) Gait Training, Ea 15 Min (10/24/21 ) Tramadol Tablet (Ultram Tablet) (10/24/21 12:30) Hydrocodone/Apap 5/325 Tablet (Lortab 5 (10/24/21 12:30) Rehab Nursing Orders: Ongoing Assess. of Cognitive Status, Ongoing Assess. of Function Status, Bladder Management, Bladder Scan, Bladder Training, Bowel Management, Bowel Training, Disease Management & Educaiton, DVT Prophylaxis, Fall Prevention, Fluid/Electrolyte/Nutrition Mgmt, Infection Prevention, Medication Management & Education, Management of Risks & Complications, Nutrition Management, Pain Management, Weight Bearing Precaution, Wound Management Intensity of Therapy to be met Patient to be seen: Min.3h per day/5 of 7d PT IPOC Problem List: Activity Tolerance, Functional Strength, Safety, Balance, Gait, Transfer, Bed Mobility, ROM Treatment Plan: Continue Plan of Care Bed Mobility, Education, Functional Activity Shanice, Functional Strength, Group Therapy, Gait, Safety, Therapeutic Exercise, Transfers Treatment Duration: Nov 13, 2021 Frequency: At least 5 of 7 days/Wk (IRF) Estimated Hrs Per Day: 1.5 hours per day OT IPOC Problems: Decreased Activ Tolerance, Decreased UE Strength, Impaired Funct Balance, Impaired I ADL's, Impaired Self-Care Skills OT Treatment, Training and Edu: Yes Plan of Care: ADL Retraining, Functional Mobility, Group Exercise/Act as Ind, UE Funct Exercise/Act Treatment Duration: Nov 20, 2021 Frequency: At least 5 of 7 days/Wk (IRF) Estimated Hrs Per Day: 1.[address] IPOC Speech Therapy Treatment Plan: Discontinue ST Treatment Duration: Oct 23, 2021 Frequency: Modified Program (IRF) Estimated Hrs Per Day: Other Polyethylene Bag Machine Operator/Case Mgmt Polyethylene Bag Machine Operator/Case Managemen: Discharge Planning Dietitian/Gettering Operator Dietitian/Gettering Operator to monitor nutritional status and make changes and/or recommendations as needed and work with speech pathology on dietary upgrades as the occur. Physician IPOC Medical Issues being managed closely and that require the 24 hour availability of a physician: Patient with super morbid obesity BMI 62 status post knee replacement will require close monitoring for respiratory failure Medical Issues: Bowel/Bladder Function, DVT Prophylaxis, Falls Precautions, Fluid/Electrolyte/Nutrition Balance, Infection Protection, Pain Management, Wound Care Brief Synthesis of Preadmission Screen, Post-Admission Evaluation, and Therapy Evaluations: PT and OT will focus on regaining function while using assistive devices in order to regain independence to go home with spouse Medical Prognosis: Good Anticipated Length of Stay: 7 days CULLEN TILLMAN DO Oct 24, 2021 06:05
--- NOTE | 2021-10-24 06:05 | PM&R Progress Note ---
Subjective HPI/CC On Admission Date Seen by Provider: Oct 24, 2021 Time Seen by Provider: 12:00 Subjective/Events-last exam 10/24/2021: Patient doing really well Working hard Percocet is too much for her so we will start hydrocodone and tramadol Remains on 2 L at night since her CPAP broke Incontinence noted Bowels are moving Review of Systems General: Fatigue Musculoskeletal: leg pain Objective Exam Vital Signs Vital Signs Date Time Temp Pulse Resp B/P (MAP) Pulse Ox O2 Delivery O2 Flow Rate FiO2 10/24/21 20:10 95 Nasal Cannula 2.00 10/24/21 20:00 37.6 54 20 90/57 (68) Capillary Refill : General Appearance: No Apparent Distress, WD/WN, Chronically ill, Obese HEENT: PERRL/EOMI, Normal ENT Inspection, Pharynx Normal Neck: Full Range of Motion, Normal Inspection, Non Tender, Supple, Carotid Bruit Respiratory: Chest Non Tender, Lungs Clear, Normal Breath Sounds, No Accessory Muscle Use, No Respiratory Distress Cardiovascular: Regular Rate, Rhythm, No Edema, No Gallop, No JVD, No Murmur, Normal Peripheral Pulses Gastrointestinal: Normal Bowel Sounds, No Organomegaly, No Pulsatile Mass, Non Tender, Soft Back: Normal Inspection, No CVA Tenderness, No Vertebral Tenderness Extremity: Normal Capillary Refill, Normal Inspection, Normal Range of Motion (Except left leg), Non Tender, No Calf Tenderness, No Pedal Edema Neurologic/Psychiatric: Alert, Oriented x3, No Motor/Sensory Deficits, Normal Mood/Affect, Abnormal Gait, Motor Weakness (Left leg) Skin: Normal Color, Warm/Dry Lymphatic: No Adenopathy Results/Procedures Lab Laboratory Tests 10/24/21 05:55 Patient resulted labs reviewed. FIM Transfers Therapy Code Descriptions/Definitions Functional [place] Measure: 0=Not Assessed/NA 4=Minimal Assistance 1=Total Assistance 5=Supervision or Setup 2=Maximal Assistance 6=Modified [place] 3=Moderate Assistance 7=Complete IndependenceSCALE: Activities may be completed with or without assistive devices. 4-Frzyhqwzuu-jdmqifo completes the activity by him/herself with no assistance from a helper. 5-Set-up or Clean-up Assistance-helper sets up or cleans up; patient completes activity. [place] assists only prior to or following the activity. 4-Supervision or Touching Assistance-helper provides verbal cues and/or touching/steadying and/or contact guard assistance as patient completes activity. Assistance may be provided throughout the activity or intermittently. 3-Partial/Moderate Assistance-helper does LESS THAN HALF the effort. [place] li fts, holds or supports trunk or limbs, but provides less than half the effort. 2-Substantial/Maximal Assistance-helper does MORE THAN HALF the effort. [place] lifts or holds trunk or limbs and provides more than half the effort. 8-Wbprchhdb-laujxb does ALL the effort. Patient does none of the effort to complete the activity. Or, the assistance of 2 or more helpers is required for the patient to complete the activity. If activity was not attempted, code reason: 7-Patient Refused. 9-Not Applicable-not attempted and the patient did not perform the activity before the current illness, exacerbation or injury. 10-Not Attempted due to Environmental Limitations-(lack of equipment, weather restraints, etc.). 88-Not Attempted due to Medical Conditions or Safety Concerns. Roll Left to Right (QC): 3 Sit to Lying (QC): 2 Sit to Stand (QC): 3 Chair/Its-eq-Roqsx Xfer(QC): 3 Car Transfer (QC): 88 Gait Training Does the Patient Walk?: Yes Walk 10 feet (QC): 88 Walk 50 ft with 2 Turns(QC): 88 Walk 150 ft (QC): 88 Walking 10ft/uneven surface-QC: 88 Gait Assistive Device: FWW Wheelchair Training Does the Pt Use a Wheelchair?: Yes Distance: 50' Wheel 50 ft with 2 turns (QC): 3 Wheel 150 ft (QC): 88 Type of Wheelchair: Manual Stair Training 1 Step (curb) (QC): 88 4 Steps (QC): 88 12 Steps (QC): 88 Balance Picking up an Object (QC): 88 ADL-Treatment Eating (QC): 6 (IND with breakfast per report.) Oral Hygiene (QC): 6 (IND seated at sink.) Shower/Bathe Self (QC): 1 (Assist x2 required. Pt able to wash chest/abdomen, and UEs. Assist with buttocks, periarea, BLEs lower legs/feet and thighs.) Upper Body Dressing (QC): 3 (Min A with pullover night gown. Pt able to thread BUEs and over head, slight assistance managing down.) Lower Body Dressing (QC): 1 (assist x2, assist all parts) On/Off Footwear (QC): 1 (total assist with gripper socks.) Toileting Hygiene (QC): 1 (Assist x2, assist with clothing managment, pt performed hygine seated.) Assessment/Plan Assessment and Plan Assess & Plan/Chief Complaint Assessment: Status post left total knee replacement postop day #3 Super morbid obesity Diabetes Hypertension NGUYEN on CPAP Hyperlipidemia Hypothyroidism Pacemaker Plan: Home meds Pain control Bowel regimen Rehab protocol 10/24/2021: Pain control DC Percocet and start Ultram and hydrocodone Continue aggressive rehab (1) Status post left knee replacement (2) Non-insulin dependent type 2 diabetes mellitus Status: Chronic (3) HTN (hypertension) Status: Chronic (4) NGUYEN (obstructive sleep apnea) Status: Chronic (5) Hypothyroidism Status: Chronic (6) Pacemaker (7) Chronic diastolic heart failure CULLEN TILLMAN DO Oct 24, 2021 06:05
[2021-10-24 06:06] LABS: HEMOGLOBIN 11.3 g/dL (11.5-16.0)
[2021-10-24 06:08] LABS: BASOPHILS # (AUTO) 0.1 10^3/uL (0.0-0.1); BASOPHILS % (AUTO) 1 % (0-10); EOSINOPHILS # (AUTO) 0.2 10^3/uL (0.0-0.3); EOSINOPHILS % (AUTO) 2 % (0-10); HEMATOCRIT 33 % (35-52); LYMPHOCYTES # (AUTO) 1.3 10^3/uL (1.0-4.0); LYMPHOCYTES % (AUTO) 15 % (12-44); MEAN CORPUSCULAR HEMOGLOBIN 35 pg (25-34); MEAN CORPUSCULAR HGB CONC 35 g/dL (32-36); MEAN CORPUSCULAR VOLUME 100 fL (80-99); MEAN PLATELET VOLUME 9.9 fL (9.0-12.2); MONOCYTES # (AUTO) 1.2 10^3/uL (0.0-1.0); MONOCYTES % (AUTO) 13 % (0-12); NEUTROPHILS # (AUTO) 6.2 10^3/uL (1.8-7.8); NEUTROPHILS % (AUTO) 69 % (42-75); PLATELET COUNT 85 10^3/uL (130-400)
[2021-10-24 06:23] LABS: ALBUMIN 3.2 GM/DL (3.2-4.5); POTASSIUM 4.2 MMOL/L (3.6-5.0)
[2021-10-24 06:25] LABS: CALCIUM 9.5 MG/DL (8.5-10.1)
[2021-10-24 06:26] LABS: TOTAL PROTEIN 5.6 GM/DL (6.4-8.2)
[2021-10-24 06:28] LABS: BILIRUBIN,TOTAL 6.3 MG/DL (0.1-1.0)
[2021-10-24 06:29] LABS: CREATININE SERUM 0.77 MG/DL (0.60-1.30)
[2021-10-24 07:09] VITALS: BP 106/52
[2021-10-24] MEDS: meTOproloL SUCCINATE 50 MG (TOPROL XL) TAB PO SCH (08:25)
[2021-10-24] MEDS: ASPIRIN E.C. 81 MG (ECOTRIN) TAB PO SCH (08:25)
[2021-10-24] MEDS: DOCUSATE SODIUM 100 MG (COLACE) CAP PO SCH ×2 (08:25→19:41)
[2021-10-24] MEDS: ENOXAPARIN 30 MG/0.3 ML (LOVENOX) SYR SC SCH ×2 (08:25→20:23)
[2021-10-24] MEDS: polyethylene glycoL POWDER 17 GM (MIRALAX) PACK PO SCH ×2 (08:41→19:41)
[2021-10-24] MEDS: SENNA W/DOCUSATE (SENOKOT S) TABLET PO SCH ×2 (08:41→19:41)
--- NOTE | 2021-10-24 10:38 | Physical Therapy Daily Note ---
PT Daily Note-Current Subjective Pt up in chair upon arrival, agreeable to PT. Pain rated 8/10. Pt states "I try not to take pain medication bc it makes me unable to function." Pt encouraged to voice this to the Dr. Pt requests BR privileges prior to return to bed/cpm. Pain Numeric Pain Scale: 8 Mental Status Patient Orientation: Person, Place, Situation Transfers SCALE: Activities may be completed with or without assistive devices. 2-Rwwsaxryfz-prxtgke completes the activity by him/herself with no assistance from a helper. 5-Set-up or Clean-up Assistance-helper sets up or cleans up; patient completes activity. [place] assists only prior to or following the activity. 4-Supervision or Touching Assistance-helper provides verbal cues and/or touching/steadying and/or contact guard assistance as patient completes activity. Assistance may be provided throughout the activity or intermittently. 3-Partial/Moderate Assistance-helper does LESS THAN HALF the effort. [place] lifts, holds or supports trunk or limbs, but provides less than half the effort. 2-Substantial/Maximal Assistance-helper does MORE THAN HALF the effort. [place] lifts or holds trunk or limbs and provides more than half the effort. 4-Wmxaxasar-pakipl does ALL the effort. Patient does none of the effort to complete the activity. Or, the assistance of 2 or more helpers is required for the patient to complete the activity. If activity was not attempted, code reason: 7-Patient Refused. 9-Not Applicable-not attempted and the patient did not perform the activity before the current illness, exacerbation or injury. 10-Not Attempted due to Environmental Limitations-(lack of equipment, weather restraints, etc.). 88-Not Attempted due to Medical Conditions or Safety Concerns. Pt required mod A to stand from recliner and 2 attempts. Pt requires min-mod A for sit-supine transfer with (B) LE and upper body. Weight Bearing Left Lower Extremity: Left Weight Bearing/Tolerated Gait Training Gait Assistive Device: FWW Pt amb 2 x 10ft with FWW and step to gait pattern, CGA Exercises Supine Ex: LE Protocol Supine Reps: 15 Treatments Pt required total assist doffing/donning underware and total assist pericare. Pt able to perform sit-stand on commode and able to scoot herself upwards in bed. CPM set 0-55deg. Pt indicated CPM was comfortable (positioned with her leg abducted somewhat in order to accomodate her natural resting position). Assessment Current Status: Good Progress Pt appeared to bend the knee approximately 85deg in order to stand up without complaint of pain. Pt is dependent at this time for transfers. Pt showed 3/5 quad strength during ther ex. Pt resting in bed with CPM, call light and all needs met. PT Short Term Goals Short Term Goals Time Frame: Oct 30, 2021 Roll Left & Right: 4 Sit to lyin Lying to sitting on side of be: 3 Sit to stand: 4 Chair/xsz-tn-jjong transfer: 4 Walk 10 feet: 4 Walk 50 feet with two turns: 4 PT Web Marketing Analyst Goals Web Marketing Analyst Goals PT Web Marketing Analyst Goals Time Frame: Nov 13, 2021 Roll Left & Right (QC): 6 Sit to Lying (QC): 4 (SBA) Lying-Sitting on Side/Bed(QC): 4 (SBA) Sit to Stand (QC): 5 Chair/Zzj-ou-Gifsc Xfer(QC): 5 Toilet Transfer (QC): 5 Car Transfer (QC): 3 Does the Patient Walk: Yes Walk 10 feet (QC): 5 Walk 50ft with 2 Turns (QC): 5 Walk 150 ft (QC): 5 Walking 10ft on Uneven Surface: 4 1 Step (curb) (QC): 4 4 Steps (QC): 4 12 Steps (QC): 88 Picking up an Object (QC): 5 Wheel 50 feet with 2 turns (QC: 4 Wheel 150 feet: 4 PT Plan Treatment/Plan Treatment Plan: Continue Plan of Care Treatment Plan: Bed Mobility, Education, Functional Activity [place], Functional Strength, Group Therapy, Gait, Safety, Therapeutic Exercise, Transfers Treatment Duration: Nov 13, 2021 Frequency: At least 5 of 7 days/Wk (IRF) Estimated Hrs Per Day: 1.5 hours per day Patient and/or Family Agrees t: Yes Time/GCodes Time In: 935 Time Out: 1010 Total Billed Treatment Time: 35 Total Billed Treatment 1, ther ex 20', gait 15' AUGUSTINE MATIAS CPTA Oct 24, 2021 10:38
[2021-10-24] MEDS ORDERED: HYDROcodone/APAP 5 MG/325 MG (LORTAB) TAB PO PRN (12:30)
[2021-10-24 20:00] VITALS: BP 90/57
[2021-10-24] MEDS: MELATONIN 3 MG TABLET PO PRN (21:52)
--- NOTE | 2021-10-25 06:24 | PM&R Progress Note ---
Subjective HPI/CC On Admission Date Seen by Provider: Oct 25, 2021 Time Seen by Provider: 10:00 Subjective/Events-last exam 10/25/2021: Tramadol working very well for her Hydrocodone for severe pain Family at bedside Incontinence is improved Checked meds and labs 10/24/2021: Patient doing really well Working hard Percocet is too much for her so we will start hydrocodone and tramadol Remains on 2 L at night since her CPAP broke Incontinence noted Bowels are moving Review of Systems General: Fatigue, Malaise Musculoskeletal: leg pain Objective Exam Vital Signs Vital Signs Date Time Temp Pulse Resp B/P (MAP) Pulse Ox O2 Delivery O2 Flow Rate FiO2 10/25/21 20:00 Nasal Cannula 2.00 10/25/21 19:28 37.2 70 20 147/72 (97) 97 Capillary Refill : General Appearance: No Apparent Distress, WD/WN, Chronically ill, Obese HEENT: PERRL/EOMI, Normal ENT Inspection, Pharynx Normal Neck: Full Range of Motion, Normal Inspection, Non Tender, Supple, Carotid Bruit Respiratory: Chest Non Tender, Lungs Clear, Normal Breath Sounds, No Accessory Muscle Use, No Respiratory Distress Cardiovascular: Regular Rate, Rhythm, No Edema, No Gallop, No JVD, No Murmur, Normal Peripheral Pulses Gastrointestinal: Normal Bowel Sounds, No Organomegaly, No Pulsatile Mass, Non Tender, Soft Back: Normal Inspection, No CVA Tenderness, No Vertebral Tenderness Extremity: Normal Capillary Refill, Normal Inspection, Normal Range of Motion (Except left leg), Non Tender, No Calf Tenderness, No Pedal Edema Neurologic/Psychiatric: Alert, Oriented x3, No Motor/Sensory Deficits, Normal Mood/Affect, Abnormal Gait, Motor Weakness (Left leg) Skin: Normal Color, Warm/Dry Lymphatic: No Adenopathy Results/Procedures Lab Patient resulted labs reviewed. FIM Transfers Therapy Code Descriptions/Definitions Functional [place] Measure: 0=Not Assessed/NA 4=Minimal Assistance 1=Total Assistance 5=Supervision or Setup 2=Maximal Assistance 6=Modified [place] 3=Moderate Assistance 7=Complete IndependenceSCALE: Activities may be completed with or without assistive devices. 8-Ctgokeybun-qhqypsu completes the activity by him/herself with no assistance from a helper. 5-Set-up or Clean-up Assistance-helper sets up or cleans up; patient completes activity. [place] assists only prior to or following the activity. 4-Supervision or Touching Assistance-helper provides verbal cues and/or touching/steadying and/or contact guard assistance as patient completes activity. Assistance may be provided throughout the activity or intermittently. 3-Partial/Moderate Assistance-helper does LESS THAN HALF the effort. [place] lifts, holds or supports trunk or limbs, but provides less than half the effort. 2-Substantial/Maximal Assistance-helper does MORE THAN HALF the effort. [place] lifts or holds trunk or limbs and provides more than half the effort. 9-Rjccxuypc-asaxrp does ALL the effort. Patient does none of the effort to complete the activity. Or, the assistance of 2 or more helpers is required for the patient to complete the activity. If activity was not attempted, code reason: 7-Patient Refused. 9-Not Applicable-not attempted and the patient did not perform the activity before the current illness, exacerbation or injury. 10-Not Attempted due to Environmental Limitations-(lack of equipment, weather restraints, etc.). 88-Not Attempted due to Medical Conditions or Safety Concerns. Roll Left to Right (QC): 3 Sit to Lying (QC): 2 Sit to Stand (QC): 3 Chair/Cvl-go-Kqbrc Xfer(QC): 3 Car Transfer (QC): 88 Gait Training Does the Patient Walk?: Yes Walk 10 feet (QC): 88 Walk 50 ft with 2 Turns(QC): 88 Walk 150 ft (QC): 88 Walking 10ft/uneven surface-QC: 88 Gait Assistive Device: FWW Wheelchair Training Does the Pt Use a Wheelchair?: Yes Distance: 50' Wheel 50 ft with 2 turns (QC): 3 Wheel 150 ft (QC): 88 Type of Wheelchair: Manual Stair Training 1 Step (curb) (QC): 88 4 Steps (QC): 88 12 Steps (QC): 88 Balance Picking up an Object (QC): 88 ADL-Treatment Eating (QC): 6 (IND with breakfast per report.) Oral Hygiene (QC): 6 (IND seated at sink.) Shower/Bathe Self (QC): 1 (Assist x2 required. Pt able to wash chest/abdomen, and UEs. Assist with buttocks, periarea, BLEs lower legs/feet and thighs.) Upper Body Dressing (QC): 3 (Min A with pullover night gown. Pt able to thread BUEs and over head, slight assistance managing down.) Lower Body Dressing (QC): 1 (assist x2, assist all parts) On/Off Footwear (QC): 1 (total assist with gripper socks.) Toileting Hygiene (QC): 1 (Assist x2, assist with clothing managment, pt performed hygine seated.) Assessment/Plan Assessment and Plan Assess & Plan/Chief Complaint Assessment: Status post left total knee replacement postop day #3 Super morbid obesity Diabetes Hypertension NGUYEN on CPAP Hyperlipidemia Hypothyroidism Pacemaker Plan: Home meds Pain control Bowel regimen Rehab protocol 10/24/2021: Pain control DC Percocet and start Ultram and hydrocodone Continue aggressive rehab 10/25/2021: Continue aggressive rehab Ultram working very well for her (1) Status post left knee replacement (2) Non-insulin dependent type 2 diabetes mellitus Status: Chronic (3) HTN (hypertension) Status: Chronic (4) NGUYEN (obstructive sleep apnea) Status: Chronic (5) Hypothyroidism Status: Chronic (6) Pacemaker (7) Chronic diastolic heart failure CULLEN TILLMAN DO Oct 25, 2021 06:24
[2021-10-25] MEDS: LEVOTHYROXINE 100 MCG (LEVOTHROID) TAB PO SCH (06:28)
[2021-10-25] MEDS: MULTIVIT W/MINERALS TAB (THERAGRAN M) PO SCH (06:28)
[2021-10-25 07:07] VITALS: BP 136/61
[2021-10-25] MEDS: meTOproloL SUCCINATE 50 MG (TOPROL XL) TAB PO SCH (08:00)
[2021-10-25] MEDS: ENOXAPARIN 30 MG/0.3 ML (LOVENOX) SYR SC SCH ×2 (08:00→20:55)
[2021-10-25] MEDS: ASPIRIN E.C. 81 MG (ECOTRIN) TAB PO SCH (08:00)
[2021-10-25] MEDS: DOCUSATE SODIUM 100 MG (COLACE) CAP PO SCH ×2 (08:00→20:55)
[2021-10-25] MEDS: polyethylene glycoL POWDER 17 GM (MIRALAX) PACK PO SCH ×2 (09:01→19:43)
[2021-10-25] MEDS: SENNA W/DOCUSATE (SENOKOT S) TABLET PO SCH ×2 (09:01→19:43)
[2021-10-25] MEDS: SERTRALINE 100 MG (ZOLOFT) TAB PO SCH (14:28)
[2021-10-25 19:28] VITALS: BP 147/72
[2021-10-25] MEDS: MELATONIN 3 MG TABLET PO PRN (20:55)
[2021-10-25] MEDS ORDERED: SERTRALINE 100 MG (ZOLOFT) TAB PO SCH (21:00)
[2021-10-26 06:23] LABS: HEMATOCRIT 32 % (35-52); HEMOGLOBIN 10.8 g/dL (11.5-16.0); MEAN CORPUSCULAR HEMOGLOBIN 34 pg (25-34); MEAN CORPUSCULAR HGB CONC 34 g/dL (32-36); MEAN CORPUSCULAR VOLUME 101 fL (80-99); NEUTROPHILS % (AUTO) 64 % (42-75)
[2021-10-26 06:26] LABS: BASOPHILS % (AUTO) 1 % (0-10); EOSINOPHILS # (AUTO) 0.4 10^3/uL (0.0-0.3); EOSINOPHILS % (AUTO) 6 % (0-10); LYMPHOCYTES # (AUTO) 0.9 10^3/uL (1.0-4.0); LYMPHOCYTES % (AUTO) 14 % (12-44); MONOCYTES # (AUTO) 0.9 10^3/uL (0.0-1.0); MONOCYTES % (AUTO) 15 % (0-12); PLATELET COUNT 99 10^3/uL (130-400); WHITE BLOOD COUNT 6.2 10^3/uL (4.3-11.0)
[2021-10-26] MEDS: MULTIVIT W/MINERALS TAB (THERAGRAN M) PO SCH (06:30)
[2021-10-26] MEDS: LEVOTHYROXINE 100 MCG (LEVOTHROID) TAB PO SCH (06:30)
[2021-10-26 06:56] LABS: CALCIUM 9.5 MG/DL (8.5-10.1)
[2021-10-26 06:57] LABS: TOTAL PROTEIN 5.4 GM/DL (6.4-8.2)
[2021-10-26 06:59] LABS: BILIRUBIN,TOTAL 5.6 MG/DL (0.1-1.0)
[2021-10-26 07:00] LABS: CREATININE SERUM 0.7 MG/DL (0.60-1.30)
[2021-10-26 07:22] VITALS: BP 123/56
[2021-10-26] MEDS: ENOXAPARIN 30 MG/0.3 ML (LOVENOX) SYR SC SCH ×2 (07:26→21:17)
[2021-10-26] MEDS: SENNA W/DOCUSATE (SENOKOT S) TABLET PO SCH ×2 (07:27→21:17)
[2021-10-26] MEDS: SERTRALINE 100 MG (ZOLOFT) TAB PO SCH (07:27)
[2021-10-26] MEDS: DOCUSATE SODIUM 100 MG (COLACE) CAP PO SCH ×2 (07:27→21:17)
[2021-10-26] MEDS: ASPIRIN E.C. 81 MG (ECOTRIN) TAB PO SCH (07:27)
[2021-10-26] MEDS: meTOproloL SUCCINATE 50 MG (TOPROL XL) TAB PO SCH (07:27)
--- NOTE | 2021-10-26 08:06 | Progress Note ---
Standard Progress Note Progress Notes/Assess & Plan Date Seen by a Provider: Oct 26, 2021 Time Seen by a Provider: 08:04 Progress/Assessment & Plan no complaints Vital Signs Date Time Temp Pulse Resp B/P (MAP) Pulse Ox O2 Delivery O2 Flow Rate FiO2 10/26/21 07:22 36.6 74 26 123/56 (78) 92 Room Air 10/25/21 20:00 Nasal Cannula 2.00 10/25/21 19:28 37.2 70 20 147/72 (97) 97 Nasal Cannula 2.00 10/25/21 09:02 Room Air Laboratory Tests Test 10/26/21 05:40 10/26/21 06:00 Range/Units White Blood Count 6.2 4.3-11.0 10^3/uL Red Blood Count 3.14 L 3.80-5.11 10^6/uL Hemoglobin 10.8 L 11.5-16.0 g/dL Hematocrit 32 L 35-52 % Mean Corpuscular Volume 101 H 80-99 fL Mean Corpuscular Hemoglobin 34 25-34 pg Mean Corpuscular Hemoglobin Concent 34 32-36 g/dL Red Cell Distribution Width 13.0 10.0-14.5 % Platelet Count 99 L 130-400 10^3/uL Mean Platelet Volume 10.0 9.0-12.2 fL Immature Granulocyte % (Auto) 1 % Neutrophils (%) (Auto) 64 42-75 % Lymphocytes (%) (Auto) 14 12-44 % Monocytes (%) (Auto) 15 H 0-12 % Eosinophils (%) (Auto) 6 0-10 % Basophils (%) (Auto) 1 0-10 % Neutrophils # (Auto) 4.0 1.8-7.8 10^3/uL Lymphocytes # (Auto) 0.9 L 1.0-4.0 10^3/uL Monocytes # (Auto) 0.9 0.0-1.0 10^3/uL Eosinophils # (Auto) 0.4 H 0.0-0.3 10^3/uL Basophils # (Auto) 0.0 0.0-0.1 10^3/uL Immature Granulocyte # (Auto) 0.1 0.0-0.1 10^3/uL Percent Immature Platelet Fraction 2.7 0.0-7.6 % Sodium Level 137 135-145 MMOL/L Potassium Level 4.0 3.6-5.0 MMOL/L Chloride Level 107 98-107 MMOL/L Carbon Dioxide Level 22 21-32 MMOL/L Anion Gap 8 5-14 MMOL/L Blood Urea Nitrogen 14 7-18 MG/DL Creatinine 0.70 0.60-1.30 MG/DL Estimat Glomerular Filtration Rate 95 BUN/Creatinine Ratio 20 Glucose Level 127 H 70-105 MG/DL Calcium Level 9.5 8.5-10.1 MG/DL Corrected Calcium 10.3 H 8.5-10.1 MG/DL Total Bilirubin 5.6 H 0.1-1.0 MG/DL Aspartate Amino Transf (AST/SGOT) 38 H 5-34 U/L Alanine Aminotransferase (ALT/SGPT) 31 0-55 U/L Alkaline Phosphatase 63 40-136 U/L Total Protein 5.4 L 6.4-8.2 GM/DL Albumin 3.0 L 3.2-4.5 GM/DL LLE--with serosang drainage but without erythema or warmth s/p LTKA will likely drain due to thrombocytopenia. no evidence of infection continue PT/OT RONY SAMANIEGO MD Oct 26, 2021 08:06
[2021-10-26] MEDS: polyethylene glycoL POWDER 17 GM (MIRALAX) PACK PO SCH ×2 (08:10→20:01)
--- NOTE | 2021-10-26 08:25 | Occupational Ther Daily Note ---
OT Current Status-Daily Note Subjective Pt on commode. Pt agreeable to OT tx. Mental Status/Objective Patient Orientation: Person, Place, Time, Situation Attachments: Polar Pack ADL-Treatment Therapy Code Descriptions/Definitions Functional [place] Measure: 0=Not Assessed/NA 4=Minimal Assistance 1=Total Assistance 5=Supervision or Setup 2=Maximal Assistance 6=Modified [place] 3=Moderate Assistance 7=Complete IndependenceSCALE: Activities may be completed with or without assistive devices. 9-Lpjaxoxqkf-fgedxjq completes the activity by him/herself with no assistance from a helper. 5-Set-up or Clean-up Assistance-helper sets up or cleans up; patient completes activity. [place] assists only prior to or following the activity. 4-Supervision or Touching Assistance-helper provides verbal cues and/or mini florin/steadying and/or contact guard assistance as patient completes activity. Assistance may be provided throughout the activity or intermittently. 3-Partial/Moderate Assistance-helper does LESS THAN HALF the effort. [place] lifts, holds or supports trunk or limbs, but provides less than half the effort. 2-Substantial/Maximal Assistance-helper does MORE THAN HALF the effort. [place] lifts or holds trunk or limbs and provides more than half the effort. 1-Mdudsikoh-zdjpqw does ALL the effort. Patient does none of the effort to complete the activity. Or, the assistance of 2 or more helpers is required for the patient to complete the activity. If activity was not attempted, code reason: 7-Patient Refused. 9-Not Applicable-not attempted and the patient did not perform the activity before the current illness, exacerbation or injury. 10-Not Attempted due to Environmental Limitations-(lack of equipment, weather restraints, etc.). 88-Not Attempted due to Medical Conditions or Safety Concerns. Toileting Hygiene (QC): 3 (min A to thoroughly clean buttocks. Pt able to manage clothes) Toilet Transfer (QC): 4 (CGA off of BSC.) Other Treatment Pt on commode. Pt completed toileting, stood at FWW to complete toilet hygiene, CGA. Pt transitioned to w/c, FWW, CGA. Pt needed assistance once in w/c to position her legs for comfort. Pt propelled w/c to therapy gym, 2 rest breaks needed. Pt completed arm bike to work on arm strengthening and activity tolera nce, 20 riley, 10 mins, 1 rest break. Pt placed/removed BUE 60 pegs to work on activity tolerance, strengthening and fine motor skills, 1lb wrist weight BUEs. Pt taken back to room, transitioned from w/c to recliner, FWW, mod A. Pt in recliner, ice on knee, call light in reach and all needs met. Education OT Patient Education: Correct positioning, Energy conservation, Exercise program, Modified ADL techniques, Progress toward Goal/Update tx plan, Purpose of tx/functional activities, Rehab process Teaching Recipient: Patient Teaching Methods: Discussion Response to Teaching: Verbalize Understanding OT Short Term Goals Short Term Goals Time Frame: Nov 04, 2021 Shower/bathe self: 3 Lower body dressin Putting on/taking off footwear: 3 OT Penitentiary Goals Penitentiary Goals Time Frame: Nov 20, 2021 Eating (QC): 6 Oral Hygiene (QC): 6 Toileting Hygiene (QC): 6 Shower/Bathe Self (QC): 4 Upper Body Dressing (QC): 6 Lower Body Dressing (QC): 4 On/Off Footwear (QC): 4 Additional Goals: 1-Demonstrate ADL Tasks, 2-Verbalize Understanding, 3- ImproveStrength/[place] 1=Demonstrate adherence to instructed precautions during ADL tasks. 2=Patient will verbalize/demonstrate understanding of assistive devices/modifications for ADL. 3=Patient will improve strength/tolerance for activity to enable patient to perform ADL's. OT Education/Plan Problem List/Assessment Assessment: Decreased Activ Tolerance, Decreased UE Strength, Impaired Coordi nation, Impaired Funct Balance, Impaired I ADL's, Impaired Self-Care Skills Discharge Recommendations Plan/Recommendations: Continue POC Treatment Plan/Plan of Care Patient would benefit from OT for education, treatment and training to promote independence in ADL's, mobility, safety and/or upper extremity function for ADL's. Plan of Care: ADL Retraining, Functional Mobility, Group Exercise/Act as Ind, UE Funct Exercise/Act Treatment Duration: Nov 20, 2021 Frequency: At least 5 of 7 days/Wk (IRF) Estimated Hrs Per Day: 1.5 hours per day Rehab Potential: Fair Time/GCodes Start Time: 08:00 Stop Time: 09:00 Total Time Billed (hr/min): 60 Billed Treatment Time 1, ADL (10), EX (10), FA 2 (40) SONYA PRESTON OT Oct 26, 2021 08:25
--- NOTE | 2021-10-26 09:58 | Physical Therapy Daily Note ---
PT Daily Note-Current Subjective Patient in recliner pre tx, agrees to PT, voices no complaints of pain. Patient needs to use the restroom, she ambulates to it, can get her underwear down and up on her own, uses tongs to wipe. Appearance Patient in recliner post tx with nurse call, phone ,tray, all needs met, [facility] care on. Mental Status Patient Orientation: Person, Place, Situation Attachments: Polar Pack Transfers SCALE: Activities may be completed with or without assistive devices. 5-Vhonfsbifp-ersumza completes the activity by him/herself with no assistance from a helper. 5-Set-up or Clean-up Assistance-helper sets up or cleans up; patient completes activity. [place] assists only prior to or following the activity. 4-Supervision or Touching Assistance-helper provides verbal cues and/or touching/steadying and/or contact guard assistance as patient completes activity. Assistance may be provided throughout the activity or intermittently. 3-Partial/Moderate Assistance-helper does LESS THAN HALF the effort. [place] lifts, holds or supports trunk or limbs, but provides less than half the effort. 2-Substantial/Maximal Assistance-helper does MORE THAN HALF the effort. [place] lifts or holds trunk or limbs and provides more than half the effort. 4-Tsbilkroa-kqyiie does ALL the effort. Patient does none of the effort to complete the activity. Or, the assistance of 2 or more helpers is required for the patient to complete the activity. If activity was not attempted, code reason: 7-Patient Refused. 9-Not Applicable-not attempted and the patient did not perform the activity before the current illness, exacerbation or injury. 10-Not Attempted due to Environmental Limitations-(lack of equipment, weather restraints, etc.). 88-Not Attempted due to Medical Conditions or Safety Concerns. Sit to Stand (QC): 3 Chair/Yaf-py-Ydbsp Xfer(QC): 4 min assist to stand from lower surfaces Weight Bearing Left Lower Extremity: Left Weight Bearing/Tolerated Gait Training Distance: 25', 20'x2, 10'x3 Walk 10 feet (QC): 4 Gait Persons Needed: 1 Gait Assistive Device: FWW WC follow, slow, antalgic, fair step through, SOB with ambulation Wheelchair Training Does the Pt Use a Wheelchair?: Yes Wheel 50 ft with 2 turns (QC): 3 Type of Wheelchair: Manual 50'x2 Exercises Seated Therapy Exercises: Ankle pumps, Long arc quads Seated Reps: 20 Treatments transfers, ambulation, toileting, LE strengthening Assessment Current Status: Poor Progress slowly improving ambulation and sit to stand, well behind where she should be at this time though PT Short Term Goals Short Term Goals Time Frame: Oct 30, 2021 Roll Left & Right: 4 Sit to lyin Lying to sitting on side of be: 3 Sit to stand: 4 Chair/waj-hu-nzuvr transfer: 4 Walk 10 feet: 4 Walk 50 feet with two turns: 4 PT [facility] [place] Goals [place] Goals PT [facility] [place] Goals Time Frame: Nov 13, 2021 Roll Left & Right (QC): 6 Sit to Lying (QC): 4 (SBA) Lying-Sitting on Side/Bed(QC): 4 (SBA) Sit to Stand (QC): 5 Chair/Smk-qe-Solit Xfer(QC): 5 Toilet Transfer (QC): 5 Car Transfer (QC): 3 Does the Patient Walk: Yes Walk 10 feet (QC): 5 Walk 50ft with 2 Turns (QC): 5 Walk 150 ft (QC): 5 Walking 10ft on Uneven Surface: 4 1 Step (curb) (QC): 4 4 Steps (QC): 4 12 Steps (QC): 88 Picking up an Object (QC): 5 Wheel 50 feet with 2 turns (QC: 4 Wheel 150 feet: 4 PT Plan Problem List Problem List: Activity Tolerance, Functional Strength, Safety, Balance, Gait, Transfer, Bed Mobility, ROM Treatment/Plan Treatment Plan: Continue Plan of Care Treatment Plan: Bed Mobility, Education, Functional Activity Shanice, Functional Strength, Group Therapy, Gait, Safety, Therapeutic Exercise, Transfers Treatment Duration: Nov 13, 2021 Frequency: At least 5 of 7 days/Wk (IRF) Estimated Hrs Per Day: 1.5 hours per day Patient and/or Family Agrees t: Yes Safety Risks/Education Patient Education: Gait Training, Transfer Techniques, Correct Positioning, W/C Management, Safety Issues Teaching Recipient: Patient Teaching Methods: Demonstration, Discussion Response to Teaching: Reinforcement Needed Time/GCodes Time In: 0900 Time Out: 1000 Total Billed Treatment Time: 60 Total Billed Treatment 1 visit EX 10' FA 50' BRANDY ZAMUDIO PT Oct 26, 2021 09:58
--- NOTE | 2021-10-26 10:15 | PM&R Progress Note ---
Subjective HPI/CC On Admission Date Seen by Provider: Oct 26, 2021 Time Seen by Provider: 10:00 Subjective/Events-last exam 10/26/2021: Patient doing well In and out cath for UA will be performed due to UTI symptoms Cipro was completed prior to surgery Platelet count of 99,000 Patient told me she sees a compressor assembler up at for cirrhosis from [place] Ultrasound that was ordered was canceled due to work-up already completed for liver 10/25/2021: Tramadol working very well for her Hydrocodone for severe pain Family at bedside Incontinence is improved Checked meds and labs 10/24/2021: Patient doing really well Working hard Percocet is too much for her so we will start hydrocodone and tramadol Remains on 2 L at night since her CPAP broke Incontinence noted Bowels are moving Review of Systems General: Fatigue, Malaise Musculoskeletal: leg pain Objective Exam Vital Signs Vital Signs Date Time Temp Pulse Resp B/P (MAP) Pulse Ox O2 Delivery O2 Flow Rate FiO2 10/26/21 20:45 Room Air 10/26/21 20:00 37.7 76 20 116/69 (85) 99 10/25/21 20:00 2.00 Capillary Refill : General Appearance: No Apparent Distress, WD/WN, Chronically ill, Obese HEENT: PERRL/EOMI, Normal ENT Inspection, Pharynx Normal Neck: Full Range of Motion, Normal Inspection, Non Tender, Supple, Carotid Bruit Respiratory: Chest Non Tender, Lungs Clear, Normal Breath Sounds, No Accessory Muscle Use, No Respiratory Distress Cardiovascular: Regular Rate, Rhythm, No Edema, No Gallop, No JVD, No Murmur, Normal Peripheral Pulses Gastrointestinal: Normal Bowel Sounds, No Organomegaly, No Pulsatile Mass, Non Tender, Soft Back: Normal Inspection, No CVA Tenderness, No Vertebral Tenderness Extremity: Normal Capillary Refill, Normal Inspection, Normal Range of Motion (Except left leg), Non Tender, No Calf Tenderness, No Pedal Edema Neurologic/Psychiatric: Alert, Oriented x3, No Motor/Sensory Deficits, Normal Mood/Affect, Abnormal Gait, Motor Weakness (Left leg) Skin: Normal Color, Warm/Dry Lymphatic: No Adenopathy Results/Procedures Lab Laboratory Tests 10/26/21 05:40 10/26/21 06:00 Patient resulted labs reviewed. FIM Transfers Therapy Code Descriptions/Definitions Functional [place] Measure: 0=Not Assessed/NA 4=Minimal Assistance 1=Total Assistance 5=Supervision or Setup 2=Maximal Assistance 6=Modified [place] 3=Moderate Assistance 7=Complete IndependenceSCALE: Activities may be completed with or without assistive devices. 9-Dacrbyenvw-fokrisp completes the activity by him/herself with no assistance from a helper. 5-Set-up or Clean-up Assistance-helper sets up or cleans up; patient completes activity. [place] assists only prior to or following the activity. 4-Supervision or Touching Assistance-helper provides verbal cues and/or touching/steadying and/or contact guard assistance as patient completes activity. Assistance may be provided throughout the activity or intermittently. 3-Partial/Moderate Assistance-helper does LESS THAN HALF the effort. [place] lift s, holds or supports trunk or limbs, but provides less than half the effort. 2-Substantial/Maximal Assistance-helper does MORE THAN HALF the effort. [place] lifts or holds trunk or limbs and provides more than half the effort. 9-Rocfbewcj-aofdie does ALL the effort. Patient does none of the effort to complete the activity. Or, the assistance of 2 or more helpers is required for the patient to complete the activity. If activity was not attempted, code reason: 7-Patient Refused. 9-Not Applicable-not attempted and the patient did not perform the activity before the current illness, exacerbation or injury. 10-Not Attempted due to Environmental Limitations-(lack of equipment, weather restraints, etc.). 88-Not Attempted due to Medical Conditions or Safety Concerns. Roll Left to Right (QC): 3 Sit to Lying (QC): 2 Sit to Stand (QC): 3 Chair/Cyr-it-Jnuap Xfer(QC): 4 Car Transfer (QC): 88 Gait Training Does the Patient Walk?: Yes Distance: 25', 20'x2, 10'x3 Walk 10 feet (QC): 4 Walk 50 ft with 2 Turns(QC): 88 Walk 150 ft (QC): 88 Walking 10ft/uneven surface-QC: 88 Gait Persons Needed: 1 Gait Assistive Device: FWW Wheelchair Training Does the Pt Use a Wheelchair?: Yes Distance: 50' Wheel 50 ft with 2 turns (QC): 3 Wheel 150 ft (QC): 88 Type of Wheelchair: Manual Stair Training 1 Step (curb) (QC): 88 4 Steps (QC): 88 12 Steps (QC): 88 Balance Picking up an Object (QC): 88 ADL-Treatment Eating (QC): 6 (IND with breakfast per report.) Oral Hygiene (QC): 6 (IND seated at sink.) Shower/Bathe Self (QC): 1 (Assist x2 required. Pt able to wash chest/abdomen, and UEs. Assist with buttocks, periarea, BLEs lower legs/feet and thighs.) Upper Body Dressing (QC): 3 (Min A with pullover night gown. Pt able to thread BUEs and over head, slight assistance managing down.) Lower Body Dressing (QC): 1 (assist x2, assist all parts) On/Off Footwear (QC): 1 (total assist with gripper socks.) Toileting Hygiene (QC): 3 (mod A to thoroughly clean buttocks) Toilet Transfer (QC): 4 (CGA) Assessment/Plan Assessment and Plan Assess & Plan/Chief Complaint Assessment: Status post left total knee replacement postop day #4 Super morbid obesity Diabetes Hypertension NGUYEN on CPAP Hyperlipidemia Hypothyroidism Pacemaker Cirrhosis from [place] Thrombocytopenia from cirrhosis Plan: Home meds Pain control Bowel regimen Rehab protocol 10/24/2021: Pain control DC Percocet and start Ultram and hydrocodone Continue aggressive rehab 10/25/2021: Continue aggressive rehab Ultram working very well for her 10/26/2021: Check UA Continue aggressive therapy (1) Status post left knee replacement (2) Non-insulin dependent type 2 diabetes mellitus Status: Chronic (3) HTN (hypertension) Status: Chronic (4) NGUYEN (obstructive sleep apnea) Status: Chronic (5) Hypothyroidism Status: Chronic (6) Pacemaker (7) Chronic diastolic heart failure CULLEN TILLMAN DO Oct 26, 2021 10:14
[2021-10-26 11:13] LABS: BILIRUBIN,URINE 2+ (NEGATIVE); CLARITY,URINE CLEAR; COLOR,URINE AMBER; GLUCOSE, URINE (UA) TRACE (NEGATIVE); KETONES,URINE NEGATIVE (NEGATIVE); LEUKOCYTE ESTERASE ,URINE TRACE (NEGATIVE); PROTEIN,URINE NEGATIVE (NEGATIVE)
[2021-10-26 11:23] LABS: BACTERIA,URINE MODERATE /HPF; CALCIUM OXALATE CRYSTALS,UR FEW /LPF; NITRITE,URINE POSITIVE (NEGATIVE); SQUAMOUS EPITHELIAL CELL,UR RARE /HPF
--- NOTE | 2021-10-26 11:57 | Occupational Ther Daily Note ---
OT Current Status-Daily Note Subjective Pt sitting EOB. Pt agreeable to OT tx. Mental Status/Objective Patient Orientation: Person, Place, Situation Attachments: Oxygen (CPAP post tx), Polar Pack ADL-Treatment Therapy Code Descriptions/Definitions Functional [place] Measure: 0=Not Assessed/NA 4=Minimal Assistance 1=Total Assistance 5=Supervision or Setup 2=Maximal Assistance 6=Modified [place] 3=Moderate Assistance 7=Complete IndependenceSCALE: Activities may be completed with or without assistive devices. 8-Xxpmvdeoqz-lqtfalb completes the activity by him/herself with no assistance from a helper. 5-Set-up or Clean-up Assistance-helper sets up or cleans up; patient completes a ctivity. [place] assists only prior to or following the activity. 4-Supervision or Touching Assistance-helper provides verbal cues and/or touching/steadying and/or contact guard assistance as patient completes activity. Assistance may be provided throughout the activity or intermittently. 3-Partial/Moderate Assistance-helper does LESS THAN HALF the effort. [place] lifts, holds or supports trunk or limbs, but provides less than half the effort. 2-Substantial/Maximal Assistance-helper does MORE THAN HALF the effort. [place] lifts or holds trunk or limbs and provides more than half the effort. 6-Azvbpxzhd-iwxcml does ALL the effort. Patient does none of the effort to complete the activity. Or, the assistance of 2 or more helpers is required for the patient to complete the activity. If activity was not attempted, code reason: 7-Patient Refused. 9-Not Applicable-not attempted and the patient did not perform the activity before the current illness, exacerbation or injury. 10-Not Attempted due to Environmental Limitations-(lack of equipment, weather restraints, etc.). 88-Not Attempted due to Medical Conditions or Safety Concerns. Other Treatment Pt sitting EOB. Pt completed 10 reps of the following BUE exercises using a moderate resistance theraband: shoulder abduction, shoulder external rotation, shoulder horizontal abduction, elbow flexion/extension and front punches. Pt completed 10 reps of the following AROM BUE exercises: wrist flexion/extension and finger flexion/extension. Pt transitioned EOB to supine, assistance needed to place legs on bed. Pt supine in bed, polar pack on, call light in reach and all needs met. Education OT Patient Education: Correct positioning, Energy conservation, Exercise program, Progress toward Goal/Update tx plan, Purpose of tx/functional activities, Rehab process Teaching Recipient: Patient Teaching Methods: Demonstration, Discussion Response to Teaching: Verbalize Understanding, Return Demonstration OT Short Term Goals Short Term Goals Time Frame: Nov 04, 2021 Shower/bathe self: 3 Lower body dressin Putting on/taking off footwear: 3 OT Halfway Goals Halfway Goals Time Frame: Nov 20, 2021 Eating (QC): 6 Oral Hygiene (QC): 6 Toileting Hygiene (QC): 6 Shower/Bathe Self (QC): 4 Upper Body Dressing (QC): 6 Lower Body Dressing (QC): 4 On/Off Footwear (QC): 4 Additional Goals: 1-Demonstrate ADL Tasks, 2-Verbalize Understanding, 3- ImproveStrength/[place] 1=Demonstrate adherence to instructed precautions during ADL tasks. 2=Patient will verbalize/demonstrate understanding of assistive devices/modifications for ADL. 3=Patient will improve strength/tolerance for activity to enable patient to perform ADL's. OT Education/Plan Problem List/Assessment Assessment: Decreased Activ Tolerance, Decreased UE Strength, Impaired Funct Balance, Impaired I ADL's, Impaired Self-Care Skills Discharge Recommendations Plan/Recommendations: Continue POC Treatment Plan/Plan of Care Patient would benefit from OT for education, treatment and training to promote independence in ADL's, mobility, safety and/or upper extremity function for ADL's. Plan of Care: ADL Retraining, Functional Mobility, Group Exercise/Act as Ind, UE Funct Exercise/Act Treatment Duration: Nov 20, 2021 Frequency: At least 5 of 7 days/Wk (IRF) Estimated Hrs Per Day: 1.5 hours per day Rehab Potential: Fair Time/GCodes Start Time: 11:25 Stop Time: 11:55 Total Time Billed (hr/min): 30 Billed Treatment Time 1, EX 2 (30) SONYA PRESTON OT Oct 26, 2021 11:57
--- NOTE | 2021-10-26 14:01 | Physical Therapy Daily Note ---
PT Daily Note-Current Subjective Patient in bed pre tx sleeping, agrees to PT after waking, has 5/10 pain in left knee. Appearance Patient in recliner post tx with nurse call, phone, tray, all needs met. [facility] care on. Mental Status Patient Orientation: Normal For Age Transfers SCALE: Activities may be completed with or without assistive devices. 7-Gmwpkvwrjb-nevtsyq completes the activity by him/herself with no assistance from a helper. 5-Set-up or Clean-up Assistance-helper sets up or cleans up; patient completes activity. [place] assists only prior to or following the activity. 4-Supervision or Touching Assistance-helper provides verbal cues and/or touching/steadying and/or contact guard assistance as patient completes activity. Assistance may be provided throughout the activity or intermittently. 3-Partial/Moderate Assistance-helper does LESS THAN HALF the effort. [place] lifts, holds or supports trunk or limbs, but provides less than half the effort. 2-Substantial/Maximal Assistance-helper does MORE THAN HALF the effort. [place] lifts or holds trunk or limbs and provides more than half the effort. 5-Zwywhoyhi-uwttbd does ALL the effort. Patient does none of the effort to complete the activity. Or, the assistance of 2 or more helpers is required for the patient to complete the activity. If activity was not attempted, code reason: 7-Patient Refused. 9-Not Applicable-not attempted and the patient did not perform the activity before the current illness, exacerbation or injury. 10-Not Attempted due to Environmental Limitations-(lack of equipment, weather restraints, etc.). 88-Not Attempted due to Medical Conditions or Safety Concerns. Lying to Sitting/Side of Bed(Q: 3 Sit to Stand (QC): 4 Chair/Unu-dv-Bhdzh Xfer(QC): 4 Patient needs cues for positioning before sitting, often she will try to sit when not turned completely Weight Bearing Left Lower Extremity: Left Weight Bearing/Tolerated Gait Training Distance: 15'x3 Walk 10 feet (QC): 4 Gait Assistive Device: FWW slow but steady ambulation. Patient states she needs to use the restroom, she can get her underwear down and up on her own and wipe herself using tongs. Treatments transfers, ambulation, bed mobility Assessment Current Status: Poor Progress slowly improving functional mobility, mod assist for supine to sit. PT Short Term Goals Short Term Goals Time Frame: Oct 30, 2021 Roll Left & Right: 4 Sit to lyin Lying to sitting on side of be: 3 Sit to stand: 4 Chair/vsm-kn-jkxad transfer: 4 Walk 10 feet: 4 Walk 50 feet with two turns: 4 PT Director [employer] Services Goals [facility] Goals PT Director [employer] Services Goals Time Frame: Nov 13, 2021 Roll Left & Right (QC): 6 Sit to Lying (QC): 4 (SBA) Lying-Sitting on Side/Bed(QC): 4 (SBA) Sit to Stand (QC): 5 Chair/Nxh-nm-Qnzrg Xfer(QC): 5 Toilet Transfer (QC): 5 Car Transfer (QC): 3 Does the Patient Walk: Yes Walk 10 feet (QC): 5 Walk 50ft with 2 Turns (QC): 5 Walk 150 ft (QC): 5 Walking 10ft on Uneven Surface: 4 1 Step (curb) (QC): 4 4 Steps (QC): 4 12 Steps (QC): 88 Picking up an Object (QC): 5 Wheel 50 feet with 2 turns (QC: 4 Wheel 150 feet: 4 PT Plan Problem List Problem List: Activity Tolerance, Functional Strength, Safety, Balance, Gait, Transfer, Bed Mobility, ROM Treatment/Plan Treatment Plan: Continue Plan of Care Treatment Plan: Bed Mobility, Education, Functional Activity [place], Functional Strength, Group Therapy, Gait, Safety, Therapeutic Exercise, Transfers Treatment Duration: Nov 13, 2021 Frequency: At least 5 of 7 days/Wk (IRF) Estimated Hrs Per Day: 1.5 hours per day Patient and/or Family Agrees t: Yes Safety Risks/Education Patient Education: Gait Training, Transfer Techniques, Correct Positioning, Safety Issues Teaching Recipient: Patient Teaching Methods: Demonstration, Discussion Response to Teaching: Reinforcement Needed Time/GCodes Time In: 1330 Time Out: 1400 Total Billed Treatment Time: 30 Total Billed Treatment 1 visit GT 30' BRANDY ZAMUDIO PT Oct 26, 2021 14:01
[2021-10-26 20:00] VITALS: BP 116/69
[2021-10-27] MEDS: MULTIVIT W/MINERALS TAB (THERAGRAN M) PO SCH (06:22)
[2021-10-27] MEDS: LEVOTHYROXINE 100 MCG (LEVOTHROID) TAB PO SCH (06:22)
[2021-10-27 07:41] VITALS: BP 135/58
[2021-10-27] MEDS: SERTRALINE 100 MG (ZOLOFT) TAB PO SCH (08:00)
[2021-10-27] MEDS: SENNA W/DOCUSATE (SENOKOT S) TABLET PO SCH ×2 (08:00→20:49)
[2021-10-27] MEDS: DOCUSATE SODIUM 100 MG (COLACE) CAP PO SCH ×2 (08:00→20:49)
[2021-10-27] MEDS: ASPIRIN E.C. 81 MG (ECOTRIN) TAB PO SCH (08:01)
[2021-10-27] MEDS: meTOproloL SUCCINATE 50 MG (TOPROL XL) TAB PO SCH (08:01)
[2021-10-27] MEDS: polyethylene glycoL POWDER 17 GM (MIRALAX) PACK PO SCH ×2 (08:03→20:52)
--- NOTE | 2021-10-27 08:42 | PM&R Progress Note ---
Subjective HPI/CC On Admission Date Seen by Provider: Oct 27, 2021 Time Seen by Provider: 10:00 Subjective/Events-last exam 10/27/21: Pt is doing really well A new CPAP was provided yesterday since hers broke UA shows no severe infection but will follow-up on urine culture No more incontinence Yellow drainage from the incision, Dr. Noriega is aware 10/26/2021: Patient doing well In and out cath for UA will be performed due to UTI symptoms Cipro was completed prior to surgery Platelet count of 99,000 Patient told me she sees a security vehicle patrol officer up at for cirrhosis from [place] Ultrasound that was ordered was canceled due to work-up already completed for liver 10/25/2021: Tramadol working very well for her Hydrocodone for severe pain Family at bedside Incontinence is improved Checked meds and labs 10/24/2021: Patient doing really well Working hard Percocet is too much for her so we will start hydrocodone and tramadol Remains on 2 L at night since her CPAP broke Incontinence noted Bowels are moving Review of Systems General: Fatigue Musculoskeletal: leg pain Objective Exam Vital Signs Vital Signs Date Time Temp Pulse Resp B/P (MAP) Pulse Ox O2 Delivery O2 Flow Rate FiO2 10/27/21 21:00 93 Room Air 10/27/21 19:35 37.8 70 20 116/67 (83) 10/25/21 20:00 2.00 Capillary Refill : General Appearance: No Apparent Distress, WD/WN, Chronically ill, Obese HEENT: PERRL/EOMI, Normal ENT Inspection, Pharynx Normal Neck: Full Range of Motion, Normal Inspection, Non Tender, Supple, Carotid Bruit Respiratory: Chest Non Tender, Lungs Clear, Normal Breath Sounds, No Accessory Muscle Use, No Respiratory Distress Cardiovascular: Regular Rate, Rhythm, No Edema, No Gallop, No JVD, No Murmur, Normal Peripheral Pulses Gastrointestinal: Normal Bowel Sounds, No Organomegaly, No Pulsatile Mass, Non Tender, Soft Back: Normal Inspection, No CVA Tenderness, No Vertebral Tenderness Extremity: Normal Capillary Refill, Normal Inspection, Normal Range of Motion (Except left leg), Non Tender, No Calf Tenderness, No Pedal Edema Neurologic/Psychiatric: Alert, Oriented x3, No Motor/Sensory Deficits, Normal Mood/Affect, Abnormal Gait, Motor Weakness (Left leg) Skin: Normal Color, Warm/Dry Lymphatic: No Adenopathy Results/Procedures Lab Patient resulted labs reviewed. FIM Transfers Therapy Code Descriptions/Definitions Functional [place] Measure: 0=Not Assessed/NA 4=Minimal Assistance 1=Total Assistance 5=Supervision or Setup 2=Maximal Assistance 6=Modified [place] 3=Moderate Assistance 7=Complete IndependenceSCALE: Activities may be completed with or without assistive devices. 1-Oijutfdkxf-zoiuzww completes the activity by him/herself with no assistance from a helper. 5-Set-up or Clean-up Assistance-helper sets up or cleans up; patient completes activity. [place] assists only prior to or following the activity. 4-Supervision or Touching Assistance-helper provides verbal cues and/or touching/steadying and/or contact guard assistance as patient completes activity. Assistance may be provided throughout the activity or intermittently. 3-Partial/Moderate Assistance-helper does LESS THAN HALF the effort. [place] lifts, holds or supports trunk or limbs, but provides less than half the effort. 2-Substantial/Maximal Assistance-helper does MORE THAN HALF the effort. [place] lifts or holds trunk or limbs and provides more than half the effort. 0-Uaqwodqmq-urmgrz does ALL the effort. Patient does none of the effort to complete the activity. Or, the assistance of 2 or more helpers is required for the patient to complete the activity. If activity was not attempted, code reason: 7-Patient Refused. 9-Not Applicable-not attempted and the patient did not perform the activity before the current illness, exacerbation or injury. 10-Not Attempted due to Environmental Limitations-(lack of equipment, weather restraints, etc.). 88-Not Attempted due to Medical Conditions or Safety Concerns. Roll Left to Right (QC): 3 Sit to Lying (QC): 2 Sit to Stand (QC): 4 Chair/Lvg-nx-Praao Xfer(QC): 4 Car Transfer (QC): 88 Gait Training Does the Patient Walk?: Yes Distance: 15'x3 Walk 10 feet (QC): 4 Walk 50 ft with 2 Turns(QC): 88 Walk 150 ft (QC): 88 Walking 10ft/uneven surface-QC: 88 Gait Persons Needed: 1 Gait Assistive Device: FWW Wheelchair Training Does the Pt Use a Wheelchair?: Yes Distance: 50' Wheel 50 ft with 2 turns (QC): 3 Wheel 150 ft (QC): 88 Type of Wheelchair: Manual Stair Training 1 Step (curb) (QC): 88 4 Steps (QC): 88 12 Steps (QC): 88 Balance Picking up an Object (QC): 88 ADL-Treatment Eating (QC): 6 (IND with breakfast per report.) Oral Hygiene (QC): 6 (IND seated at sink.) Shower/Bathe Self (QC): 1 (Assist x2 required. Pt able to wash chest/abdomen, and UEs. Assist with buttocks, periarea, BLEs lower legs/feet and thighs.) Upper Body Dressing (QC): 3 (Min A with pullover night gown. Pt able to thread BUEs and over head, slight assistance managing down.) Lower Body Dressing (QC): 1 (assist x2, assist all parts) On/Off Footwear (QC): 1 (total assist with gripper socks.) Toileting Hygiene (QC): 3 (min A to thoroughly clean buttocks. Pt able to manage clothes) Toilet Transfer (QC): 4 (CGA off of BS.) Assessment/Plan Assessment and Plan Assess & Plan/Chief Complaint Assessment: Status post left total knee replacement postop day #4 Super morbid obesity Diabetes Hypertension NGUYEN on CPAP Hyperlipidemia Hypothyroidism Pacemaker Cirrhosis from [place] Thrombocytopenia from cirrhosis Plan: Home meds Pain control Bowel regimen Rehab protocol 10/24/2021: Pain control DC Percocet and start Ultram and hydrocodone Continue aggressive rehab 10/25/2021: Continue aggressive rehab Ultram working very well for her 10/26/2021: Check UA Continue aggressive therapy 10/27/21: Monitor incision (1) Status post left knee replacement (2) Non-insulin dependent type 2 diabetes mellitus Status: Chronic (3) HTN (hypertension) Status: Chronic (4) NGUYEN (obstructive sleep apnea) Status: Chronic (5) Hypothyroidism Status: Chronic (6) Pacemaker (7) Chronic diastolic heart failure CULLEN TILLMAN DO Oct 27, 2021 08:42
[2021-10-27] MEDS: ENOXAPARIN 30 MG/0.3 ML (LOVENOX) SYR SC SCH ×2 (09:35→20:52)
--- NOTE | 2021-10-27 09:52 | Occupational Ther Daily Note ---
OT Current Status-Daily Note Subjective Pt sitting in bed eating breakfast. Pt agreeable to OT tx. Mental Status/Objective Patient Orientation: Person, Place, Time, Situation Attachments: Polar Pack (Post OT tx) ADL-Treatment Therapy Code Descriptions/Definitions Functional [place] Measure: 0=Not Assessed/NA 4=Minimal Assistance 1=Total Assistance 5=Supervision or Setup 2=Maximal Assistance 6=Modified [place] 3=Moderate Assistance 7=Complete IndependenceSCALE: Activities may be completed with or without assistive devices. 1-Gqfywbzvar-tttzlgz completes the activity by him/herself with no assistance from a helper. 5-Set-up or Clean-up Assistance-helper sets up or cleans up; patient completes activity. [place] assists only prior to or following the activity. 4-Supervision or Touching Assistance-helper provides verbal cues and/or touching/steadying and/or contact guard assistance as patient completes activity. Assistance may be provided throughout the activity or intermittently. 3-Partial/Moderate Assistance-helper does LESS THAN HALF the effort. [place] lifts, holds or supports trunk or limbs, but provides less than half the effort. 2-Substantial/Maximal Assistance-helper does MORE THAN HALF the effort. [place] lifts or holds trunk or limbs and provides more than half the effort. 2-Jxonqsjwb-ieoxai does ALL the effort. Patient does none of the effort to complete the activity. Or, the assistance of 2 or more helpers is required for the patient to complete the activity. If activity was not attempted, code reason: 7-Patient Refused. 9-Not Applicable-not attempted and the patient did not perform the activity before the current illness, exacerbation or injury. 10-Not Attempted due to Environmental Limitations-(lack of equipment, weather restraints, etc.). 88-Not Attempted due to Medical Conditions or Safety Concerns. Eating (QC): 6 (Independent) Bathing Location: L Arm, R Arm, L Upper Leg, R Upper Leg, L Lower Leg (including foot), R Lower Leg (including foot), Chest, Abdomen, Buttocks, Perineal Area Shower/Bathe Self (QC): 4 (CGA for sit to lens inserter shower to wash all parts. LH sponge utilized.) Lower Body Dressing (QC): 2 (Pt required assistance to thread BLEs and slight assist with pant hike. ) On/Off Footwear: 2 ( max A needed to don socks. Total assist with TEDhose.) Other Treatment Pt sitting in bed eating breakfast. Pt transitioned to EOB, min A needed to put legs off of bed. Pt transitioned to FWW, CGA. Functional mobility to SC in bathroom, SBA. Pt doffed hosptial gown, underwear and socks, AE, completed showering. Pt transitioned from SC to w/c in bathroom, FWW, CGA, donned hospital gown, underwear and socks, AE. Pt sat in w/c at sink and brushed her hair then was taken back to bed. Pt transitioned to FWW from w/c then supine in bed, CGA, min A needed to put legs on bed. Pt supine in bed, nadiya hose on, polar pack on, call light in reach and all needs met. Education OT Patient Education: Correct positioning, Energy conservation, Modified ADL techniques, Progress toward Goal/Update tx plan, Purpose of tx/functional activities, Rehab process, Use of adapted equipment Teaching Recipient: Patient Teaching Methods: Discussion Response to Teaching: Verbalize Understanding OT Short Term Goals Short Term Goals Time Frame: Nov 04, 2021 Shower/bathe self: 3 Lower body dressin Putting on/taking off footwear: 3 OT Jail Goals Jail Goals Time Frame: Nov 20, 2021 Eating (QC): 6 Oral Hygiene (QC): 6 Toileting Hygiene (QC): 6 Shower/Bathe Self (QC): 4 Upper Body Dressing (QC): 6 Lower Body Dressing (QC): 4 On/Off Footwear (QC): 4 Additional Goals: 1-Demonstrate ADL Tasks, 2-Verbalize Understanding, 3-ImproveStrength/Shanice 1=Demonstrate adherence to instructed precautions during ADL tasks. 2=Patient will verbalize/demonstrate understanding of assistive devices/modifications for ADL. 3=Patient will improve strength/tolerance for activity to enable patient to perform ADL's. OT Education/Plan Problem List/Assessment Assessment: Decreased Activ Tolerance, Decreased UE Strength, Impaired Funct Balance, Impaired I ADL's, Impaired Self-Care Skills Discharge Recommendations Plan/Recommendations: Continue POC Treatment Plan/Plan of Care Patient would benefit from OT for education, treatment and training to promote independence in ADL's, mobility, safety and/or upper extremity function for ADL's. Plan of Care: ADL Retraining, Functional Mobility, Group Exercise/Act as Ind, UE Funct Exercise/Act Treatment Duration: Nov 20, 2021 Frequency: At least 5 of 7 days/Wk (IRF) Estimated Hrs Per Day: 1.5 hours per day Rehab Potential: Fair Time/GCodes Start Time: 07:45 Stop Time: 09:00 Total Time Billed (hr/min): 75 Billed Treatment Time 1, ADL 5 (75) SONYA PRESTON OT Oct 27, 2021 09:52
--- NOTE | 2021-10-27 10:52 | Physical Therapy Daily Note ---
PT Daily Note-Current Subjective Patient in bed pre tx, agrees to PT, has unrated left knee pain. Patient states pain isn't too bad because "I have tramadol on board". Appearance Patient in bed post tx with nurse call, phone, tray, all needs met. Mental Status Patient Orientation: Person, Place, Situation Attachments: Polar Pack Transfers SCALE: Activities may be completed with or without assistive devices. 6-Xmrvgpizsd-epxkjsp completes the activity by him/herself with no assistance from a helper. 5-Set-up or Clean-up Assistance-helper sets up or cleans up; patient completes activity. [place] assists only prior to or following the activity. 4-Supervision or Touching Assistance-helper provides verbal cues and/or touching/steadying and/or contact guard assistance as patient completes activity. Assistance may be provided throughout the activity or intermittently. 3-Partial/Moderate Assistance-helper does LESS THAN HALF the effort. [place] lifts, holds or supports trunk or limbs, but provides less than half the effort. 2-Substantial/Maximal Assistance-helper does MORE THAN HALF the effort. [place] lifts or holds trunk or limbs and provides more than half the effort. 2-Bxnisuhnh-rlfysr does ALL the effort. Patient does none of the effort to complete the activity. Or, the assistance of 2 or more helpers is required for the patient to complete the activity. If activity was not attempted, code reason: 7-Patient Refused. 9-Not Applicable-not attempted and the patient did not perform the activity before the current illness, exacerbation or injury. 10-Not Attempted due to Environmental Limitations-(lack of equipment, weather restraints, etc.). 88-Not Attempted due to Medical Conditions or Safety Concerns. Roll Left & Right (QC): 6 Sit to Lying (QC): 3 Lying to Sitting/Side of Bed(Q: 3 Sit to Stand (QC): 4 Chair/Hwq-sd-Iuazr Xfer(QC): 4 Toilet Transfer (QC): 4 Patient still needs min to mod assist for supine <-> sit. Sit <-> stand has improved to CGA, she just may need extra time to complete it. During therapy patient has to use the restroom and she transfers with CGA using the grab bars on the wall, she can get her underwear down and up without assist and uses tongs and toilet paper to wipe herself. Weight Bearing Left Lower Extremity: Left Weight Bearing/Tolerated Gait Training Distance: 20'x4 Walk 10 feet (QC): 4 Gait Persons Needed: 1 Gait Assistive Device: FWW CGA, slow, antalgic, fair step-through but poor foot clearance Wheelchair Training Does the Pt Use a Wheelchair?: Yes Wheel 50 ft with 2 turns (QC): 3 Type of Wheelchair: Manual 120'x2 Exercises left knee flex/ext stretching, patient can achieve about +3 degrees extension but only about 70 degrees flexion. Patient also performed LAQ alternating for 5 min NuStep Minutes: 15 NuStep Workload: 4 Treatments bed mobility and transfers, ambulation, ROM/stretching, functional strengthening Assessment Current Status: Poor Progress Patient is making very slow progress. She needs frequent rest breaks due to fatigue and pain. PT Short Term Goals Short Term Goals Time Frame: Oct 30, 2021 Roll Left & Right: 4 Sit to lyin Lying to sitting on side of be: 3 Sit to stand: 4 Chair/npm-wq-oaiqd transfer: 4 Walk 10 feet: 4 Walk 50 feet with two turns: 4 PT Back Office Medical Assistant Goals Back Office Medical Assistant Goals PT Shelter Goals Time Frame: Nov 13, 2021 Roll Left & Right (QC): 6 Sit to Lying (QC): 4 (SBA) Lying-Sitting on Side/Bed(QC): 4 (SBA) Sit to Stand (QC): 5 Chair/Ocv-td-Appjb Xfer(QC): 5 Toilet Transfer (QC): 5 Car Transfer (QC): 3 Does the Patient Walk: Yes Walk 10 feet (QC): 5 Walk 50ft with 2 Turns (QC): 5 Walk 150 ft (QC): 5 Walking 10ft on Uneven Surface: 4 1 Step (curb) (QC): 4 4 Steps (QC): 4 12 Steps (QC): 88 Picking up an Object (QC): 5 Wheel 50 feet with 2 turns (QC: 4 Wheel 150 feet: 4 PT Plan Problem List Problem List: Activity Tolerance, Functional Strength, Safety, Balance, Gait, Transfer, Bed Mobility, ROM Treatment/Plan Treatment Plan: Continue Plan of Care Treatment Plan: Bed Mobility, Education, Functional Activity Shanice, Functional Strength, Group Therapy, Gait, Safety, Therapeutic Exercise, Transfers Treatment Duration: Nov 13, 2021 Frequency: At least 5 of 7 days/Wk (IRF) Estimated Hrs Per Day: 1.5 hours per day Patient and/or Family Agrees t: Yes Safety Risks/Education Patient Education: Gait Training, Transfer Techniques, Correct Positioning, W/C Management, Safety Issues Teaching Recipient: Patient Teaching Methods: Demonstration, Discussion Response to Teaching: Reinforcement Needed Time/GCodes Time In: 0930 Time Out: 1100 Total Billed Treatment Time: 90 Total Billed Treatment 1 visit EX 30' FA 60' BRANDY ZAMUDIO PT Oct 27, 2021 10:52
--- NOTE | 2021-10-27 11:52 | Occupational Ther Daily Note ---
OT Current Status-Daily Note Subjective Pt supine in bed. Pt agreeable to OT tx. Mental Status/Objective Patient Orientation: Person, Place, Situation Attachments: Polar Pack ADL-Treatment Therapy Code Descriptions/Definitions Functional [place] Measure: 0=Not Assessed/NA 4=Minimal Assistance 1=Total Assistance 5=Supervision or Setup 2=Maximal Assistance 6=Modified [place] 3=Moderate Assistance 7=Complete IndependenceSCALE: Activities may be completed with or without assistive devices. 5-Uwhbpydend-xuganot completes the activity by him/herself with no assistance from a helper. 5-Set-up or Clean-up Assistance-helper sets up or cleans up; patient completes activity. [place] assists only prior to or following the activity. 4-Supervision or Touching Assistance-helper provides verbal cues and/or touchi ng/steadying and/or contact guard assistance as patient completes activity. Assistance may be provided throughout the activity or intermittently. 3-Partial/Moderate Assistance-helper does LESS THAN HALF the effort. [place] lifts, holds or supports trunk or limbs, but provides less than half the effort. 2-Substantial/Maximal Assistance-helper does MORE THAN HALF the effort. [place] lifts or holds trunk or limbs and provides more than half the effort. 2-Eueucpujk-jfssqe does ALL the effort. Patient does none of the effort to complete the activity. Or, the assistance of 2 or more helpers is required for the patient to complete the activity. If activity was not attempted, code reason: 7-Patient Refused. 9-Not Applicable-not attempted and the patient did not perform the activity before the current illness, exacerbation or injury. 10-Not Attempted due to Environmental Limitations-(lack of equipment, weather restraints, etc.). 88-Not Attempted due to Medical Conditions or Safety Concerns. Other Treatment Pt supine in bed. Pt sat up in bed to do the following BUE exercises using a moderate theraband: shoulder horizontal abduction and front punches x20 reps and elbow flexion/extension x5 reps. Pt was educated/shown how to use sock aide and then demonstrated it. Pt needed min A to get the sock the correct direction once all the way on. Pt supine in bed, polar pack on, call light in reach and all needs met. Education OT Patient Education: Correct positioning, Energy conservation, Exercise program, Modified ADL techniques, Progress toward Goal/Update tx plan, Purpose of tx/functional activities, Rehab process, Use of adapted equipment Teaching Recipient: Patient Teaching Methods: Demonstration, Discussion Response to Teaching: Verbalize Understanding, Return Demonstration OT Short Term Goals Short Term Goals Time Frame: Nov 04, 2021 Shower/bathe self: 3 Lower body dressin Putting on/taking off footwear: 3 OT Senior Label Specialist Goals Senior Label Specialist Goals Time Frame: Nov 20, 2021 Eating (QC): 6 Oral Hygiene (QC): 6 Toileting Hygiene (QC): 6 Shower/Bathe Self (QC): 4 Upper Body Dressing (QC): 6 Lower Body Dressing (QC): 4 On/Off Footwear (QC): 4 Additional Goals: 1-Demonstrate ADL Tasks, 2-Verbalize Understanding, 3- ImproveStrength/[place]anice 1=Demonstrate adherence to instructed precautions during ADL tasks. 2=Patient will verbalize/demonstrate understanding of assistive devices/modifications for ADL. 3=Patient will improve strength/tolerance for activity to enable patient to perform ADL's. OT Education/Plan Problem List/Assessment Assessment: Decreased Activ Tolerance, Decreased UE Strength, Impaired Funct Balance, Impaired I ADL's, Impaired Self-Care Skills Discharge Recommendations Plan/Recommendations: Continue POC Treatment Plan/Plan of Care Patient would benefit from OT for education, treatment and training to promote independence in ADL's, mobility, safety and/or upper extremity function for ADL's. Plan of Care: ADL Retraining, Functional Mobility, Group Exercise/Act as Ind, UE Funct Exercise/Act Treatment Duration: Nov 20, 2021 Frequency: At least 5 of 7 days/Wk (IRF) Estimated Hrs Per Day: 1.5 hours per day Rehab Potential: Fair Time/GCodes Start Time: 11:30 Stop Time: 11:45 Total Time Billed (hr/min): 15 Billed Treatment Time 1, ADL (15) SONYA PRESTON OT Oct 27, 2021 11:52
--- NOTE | 2021-10-27 15:22 | ST Cognitive Linguistic Eval ---
Speech Evaluation-General Medical Diagnosis s/p L TKA Onset Date: Oct 21, 2021 Therapy Diagnosis Therapy Diagnosis: Cognitive Lingusitic Skills WNL Precautions Precautions: Fall Precautions/Isolations: Standard Precautions Referral Referring Physician: Dr. Sasha Santos Reason for Referral: Evaluation/Treatment Medical History Current History The patient is a 65 year-old female with a past medical history significant for HTN, diabetes, hypercholesterolemia, Crohn's disease, cirrhosis of the liver, anxiety disorder, depression, hypothyroidism, allergic rhinitis, iron deficiency, tension headaches, sleep apnea, and urinary incontinence, who presents to [facility] following a left TKR. Reviewed History: Yes Social History Current Living Status: Spouse Speech PLF-Current Status Prior Level of Function The patient reports complete independence with ADL prior to admission to the hospital. Subjective The patient was lying in bed, awake and alert upon entrance. The patient greeted the clinician appropriately and was agreeable to participation in the cognitive linguistic evaluation. The patient denied changes or difficulties with her cognition, speech, language, or swallowing at this time. To note: The patient is being evaluated for a possible UTI. If a UTI is present, the patient's cognitive status should be monitored carefully. Language Eval: Auditory Comprehends Simple Yes/No Ques: Functional Indent/Objects Multiple King: Functional Ident/Pics in Multiple King: Functional Follows 1-Step Commands: Functional Follows Complex Directions: Functional Follows General Conversations: Functional Language Eval: Verbal Language Completes Spontaneous Greeting: Functional Produces Auto, Serial Info: Functional Imitates Simple Words/Phrases: Functional Word Finding: Functional Requests Basic Needs: Functional States Basic Personal Info: Functional Expresses Complex Ideas: Functional Language Evaluation: Reading Follows Simple Written Direct: Functional Language Evaluation: Writing Writes to Simple Dictation: Functional Cognitive Patient Orientation The patient is independently oriented to self, location, month, day of the week, date, and year. Objective Cognitive Domain Attention: WNL Memory: Mild Problem Solving: Functional Executive Functions: WNL Visuospatial Skills: WNL Composite Severity Rating: WNL Clock Drawing Severity Rating: WNL Objective Formal/Standardized Tests [facility] Mental Status ([facility]) Results The patient demonstrated a result of +27/30 on the SLUMS correlating to neurocognitive functions within normal limits. Oral Motor/Speech Production The patient does not present with dysarthria or apraxia of speech. The patient remains 100% intelligible in known and unknown contexts. Impression The patient is a 65 year old female, who presents with cognitive linguistic functions within normal limits. The patient did display mild difficulty with recall of single words following a five minute delay (recalled two of five), however, does report this is her baseline function and does not discuss concern with the clinician. Additional deficits with functional memory were not detected by this therapist throughout the evaluation. Speech Patient Assess Expression of Ideas/Wants: Expression (4) Understanding Verbal Content: Understands (4) Brief Interview-Mental Status: Yes Repetition of Three Words: Three (3) Temporal Orientation: Year: Correct (3) Temporal Orientation: Month: Accurate within 5 days(2) Temporal Orientation: Day: Correct (1) Recall : Wear to say "Sock": Yes, no cue required (2) Recall : Color: Yes, after cueing (1) Recall : Bed: Yes,after cueing (1) Memory/Recall Ability: Current season, Location of own room, Staff names and faces, That he or she is in a hsp/hsp unit Speech-Plan Treatment Plan Speech Therapy Treatment Plan: Discontinue ST Treatment Duration: Oct 23, 2021 Frequency: 1 time per week Estimated Hrs Per Day: .25 hour per day Rehab Potential: Fair Pt/Family Agrees to Plan: Yes Safety Risks/Education Teaching Recipient: Patient Teaching Methods: Discussion Response to Teaching: Verbalize Understanding Education Topics Provided: Results of SLUMS, Plan of Care Time Speech Therapy Time In: 09:00 Speech Therapy Time Out: 09:15 Total Billed Time: 15 Billed Treatment Time 1, PAULINA Bernal Oct 27, 2021 15:22
[2021-10-27 19:35] VITALS: BP 116/67
[2021-10-28] MEDS: MULTIVIT W/MINERALS TAB (THERAGRAN M) PO SCH (06:55)
[2021-10-28] MEDS: LEVOTHYROXINE 100 MCG (LEVOTHROID) TAB PO SCH (06:55)
--- NOTE | 2021-10-28 07:02 | PM&R Progress Note ---
Subjective HPI/CC On Admission Date Seen by Provider: Oct 28, 2021 Time Seen by Provider: 11:00 Subjective/Events-last exam 10/28/2021: Pt is doing okay Urine culture shows E-Coli so will place on her Omnicef 300 BID Discharge planned for next Tuesday Bowels moved yesterday 10/27/21: Pt is doing really well A new CPAP was provided yesterday since hers broke UA shows no severe infection but will follow-up on urine culture No more incontinence Yellow drainage from the incision, Dr. Noriega is aware 10/26/2021: Patient doing well In and out cath for UA will be performed due to UTI symptoms Cipro was completed prior to surgery Platelet count of 99,000 Patient told me she sees a telecommunication systems designer up at for cirrhosis from [place] Ultrasound that was ordered was canceled due to work-up already completed for li ross 10/25/2021: Tramadol working very well for her Hydrocodone for severe pain Family at bedside Incontinence is improved Checked meds and labs 10/24/2021: Patient doing really well Working hard Percocet is too much for her so we will start hydrocodone and tramadol Remains on 2 L at night since her CPAP broke Incontinence noted Bowels are moving Review of Systems Musculoskeletal: leg pain Objective Exam Vital Signs Vital Signs Date Time Temp Pulse Resp B/P (MAP) Pulse Ox O2 Delivery O2 Flow Rate FiO2 10/28/21 20:12 93 Room Air 10/28/21 19:37 37.4 69 20 123/58 (79) 10/25/21 20:00 2.00 Capillary Refill : General Appearance: No Apparent Distress, WD/WN, Chronically ill, Obese HEENT: PERRL/EOMI, Normal ENT Inspection, Pharynx Normal Neck: Full Range of Motion, Normal Inspection, Non Tender, Supple, Carotid Bruit Respiratory: Chest Non Tender, Lungs Clear, Normal Breath Sounds, No Accessory Muscle Use, No Respiratory Distress Cardiovascular: Regular Rate, Rhythm, No Edema, No Gallop, No JVD, No Murmur, Normal Peripheral Pulses Gastrointestinal: Normal Bowel Sounds, No Organomegaly, No Pulsatile Mass, Non Tender, Soft Back: Normal Inspection, No CVA Tenderness, No Vertebral Tenderness Extremity: Normal Capillary Refill, Normal Inspection, Normal Range of Motion (Except left leg), Non Tender, No Calf Tenderness, No Pedal Edema Neurologic/Psychiatric: Alert, Oriented x3, No Motor/Sensory Deficits, Normal Mood/Affect, Abnormal Gait, Motor Weakness (Left leg) Skin: Normal Color, Warm/Dry Lymphatic: No Adenopathy Results/Procedures Lab Patient resulted labs reviewed. FIM Transfers Therapy Code Descriptions/Definitions Functional [place] Measure: 0=Not Assessed/NA 4=Minimal Assistance 1=Total Assistance 5=Supervision or Setup 2=Maximal Assistance 6=Modified [place] 3=Moderate Assistance 7=Complete IndependenceSCALE: Activities may be completed with or without assistive devices. 2-Jmisezqmcd-kijicnw completes the activity by him/herself with no assistance from a helper. 5-Set-up or Clean-up Assistance-helper sets up or cleans up; patient completes activity. [place] assists only prior to or following the activity. 4-Supervision or Touching Assistance-helper provides verbal cues and/or touching/steadying and/or contact guard assistance as patient completes activity. Assistance may be provided throughout the activity or intermittently. 3-Partial/Moderate Assistance-helper does LESS THAN HALF the effort. [place] lifts, holds or supports trunk or limbs, but provides less than half the effort. 2-Substantial/Maximal Assistance-helper does MORE THAN HALF the effort. [place] lifts or holds trunk or limbs and provides more than half the effort. 6-Zgxrloiyy-soscmx does ALL the effort. Patient does none of the effort to complete the activity. Or, the assistance of 2 or more helpers is required for the patient to complete the activity. If activity was not attempted, code reason: 7-Patient Refused. 9-Not Applicable-not attempted and the patient did not perform the activity before the current illness, exacerbation or injury. 10-Not Attempted due to Environmental Limitations-(lack of equipment, weather restraints, etc.). 88-Not Attempted due to Medical Conditions or Safety Concerns. Roll Left to Right (QC): 6 Sit to Lying (QC): 3 Sit to Stand (QC): 4 Chair/Hvp-lq-Raycu Xfer(QC): 4 Car Transfer (QC): 88 Gait Training Does the Patient Walk?: Yes Distance: 20'x4 Walk 10 feet (QC): 4 Walk 50 ft with 2 Turns(QC): 88 Walk 150 ft (QC): 88 Walking 10ft/uneven surface-QC: 88 Gait Persons Needed: 1 Gait Assistive Device: FWW Wheelchair Training Does the Pt Use a Wheelchair?: Yes Distance: 50' Wheel 50 ft with 2 turns (QC): 3 Wheel 150 ft (QC): 88 Type of Wheelchair: Manual Stair Training 1 Step (curb) (QC): 88 4 Steps (QC): 88 12 Steps (QC): 88 Balance Picking up an Object (QC): 88 ADL-Treatment Eating (QC): 6 (Independent) Oral Hygiene (QC): 6 (IND seated at sink.) Bathing Location: L Arm, R Arm, L Upper Leg, R Upper Leg, L Lower Leg (including foot), R Lower Leg (including foot), Chest, Abdomen, Buttocks, Perineal Area Shower/Bathe Self (QC): 4 (CGA for sit to maintenance analyst shower to wash all parts. LH sponge utilized.) Upper Body Dressing (QC): 3 (Min A with pullover night gown. Pt able to thread BUEs and over head, slight assistance managing down.) Lower Body Dressing (QC): 2 (Pt required assistance to thread BLEs and slight assist with pant hike. ) On/Off Footwear (QC): 2 ( max A needed to don socks. Total assist with TEDhose.) Toileting Hygiene (QC): 3 (min A to thoroughly clean buttocks. Pt able to manage clothes) Toilet Transfer (QC): 4 (CGA off of BSC.) Assessment/Plan Assessment and Plan Assess & Plan/Chief Complaint Assessment: Status post left total knee replacement postop day #5 Super morbid obesity Diabetes Hypertension NGUYEN on CPAP Hyperlipidemia Hypothyroidism Pacemaker Cirrhosis from [place] Thrombocytopenia from cirrhosis UTI E. coli placed on Omnicef 10/28/2021 Plan: Home meds Pain control Bowel regimen Rehab protocol 10/24/2021: Pain control DC Percocet and start Ultram and hydrocodone Continue aggressive rehab 10/25/2021: Continue aggressive rehab Ultram working very well for her 10/26/2021: Check UA Continue aggressive therapy 10/27/21: Monitor incision 10/28/2021: UTI treatment Aggressive rehab DC 11/06/2021 (1) Status post left knee replacement (2) Non-insulin dependent type 2 diabetes mellitus Status: Chronic (3) HTN (hypertension) Status: Chronic (4) NGUYEN (obstructive sleep apnea) Status: Chronic (5) Hypothyroidism Status: Chronic (6) Pacemaker (7) Chronic diastolic heart failure CULLEN TILLMAN DO Oct 28, 2021 07:02
[2021-10-28 07:49] VITALS: BP 126/59
--- NOTE | 2021-10-28 08:08 | Progress Note ---
Standard Progress Note Progress Notes/Assess & Plan Date Seen by a Provider: Oct 28, 2021 Time Seen by a Provider: 08:07 Progress/Assessment & Plan no complaints Vital Signs Date Time Temp Pulse Resp B/P (MAP) Pulse Ox O2 Delivery O2 Flow Rate FiO2 10/26/21 07:22 36.6 74 26 123/56 (78) 92 Room Air 10/25/21 20:00 Nasal Cannula 2.00 10/25/21 19:28 37.2 70 20 147/72 (97) 97 Nasal Cannula 2.00 10/25/21 09:02 Room Air Laboratory Tests Test 10/26/21 05:40 10/26/21 06:00 Range/Units White Blood Count 6.2 4.3-11.0 10^3/uL Red Blood Count 3.14 L 3.80-5.11 10^6/uL Hemoglobin 10.8 L 11.5-16.0 g/dL Hematocrit 32 L 35-52 % Mean Corpuscular Volume 101 H 80-99 fL Mean Corpuscular Hemoglobin 34 25-34 pg Mean Corpuscular Hemoglobin Concent 34 32-36 g/dL Red Cell Distribution Width 13.0 10.0-14.5 % Platelet Count 99 L 130-400 10^3/uL Mean Platelet Volume 10.0 9.0-12.2 fL Immature Granulocyte % (Auto) 1 % Neutrophils (%) (Auto) 64 42-75 % Lymphocytes (%) (Auto) 14 12-44 % Monocytes (%) (Auto) 15 H 0-12 % Eosinophils (%) (Auto) 6 0-10 % Basophils (%) (Auto) 1 0-10 % Neutrophils # (Auto) 4.0 1.8-7.8 10^3/uL Lymphocytes # (Auto) 0.9 L 1.0-4.0 10^3/uL Monocytes # (Auto) 0.9 0.0-1.0 10^3/uL Eosinophils # (Auto) 0.4 H 0.0-0.3 10^3/uL Basophils # (Auto) 0.0 0.0-0.1 10^3/uL Immature Granulocyte # (Auto) 0.1 0.0-0.1 10^3/uL Percent Immature Platelet Fraction 2.7 0.0-7.6 % Sodium Level 137 135-145 MMOL/L Potassium Level 4.0 3.6-5.0 MMOL/L Chloride Level 107 98-107 MMOL/L Carbon Dioxide Level 22 21-32 MMOL/L Anion Gap 8 5-14 MMOL/L Blood Urea Nitrogen 14 7-18 MG/DL Creatinine 0.70 0.60-1.30 MG/DL Estimat Glomerular Filtration Rate 95 BUN/Creatinine Ratio 20 Glucose Level 127 H 70-105 MG/DL Calcium Level 9.5 8.5-10.1 MG/DL Corrected Calcium 10.3 H 8.5-10.1 MG/DL Total Bilirubin 5.6 H 0.1-1.0 MG/DL Aspartate Amino Transf (AST/SGOT) 38 H 5-34 U/L Alanine Aminotransferase (ALT/SGPT) 31 0-55 U/L Alkaline Phosphatase 63 40-136 U/L Total Protein 5.4 L 6.4-8.2 GM/DL Albumin 3.0 L 3.2-4.5 GM/DL LLE--with serosang drainage but without erythema or warmth s/p LTKA will likely drain due to thrombocytopenia. no evidence of infection continue PT/OT Final Diagnosis no complaints Vital Signs Date Time Temp Pulse Resp B/P (MAP) Pulse Ox O2 Delivery O2 Flow Rate FiO2 10/28/21 07:49 37.2 63 16 126/59 (81) 94 Room Air 10/27/21 21:00 93 Room Air 10/27/21 19:35 37.8 70 20 116/67 (83) 93 Room Air 10/27/21 09:00 Room Air Left knee incision with scant bloody dc no erythema or warmth no calf tenderness s/p L TKA continue PT/OT RONY SAMANIEGO MD Oct 28, 2021 08:08
[2021-10-28] MEDS: SERTRALINE 100 MG (ZOLOFT) TAB PO SCH (08:16)
[2021-10-28] MEDS: ASPIRIN E.C. 81 MG (ECOTRIN) TAB PO SCH (08:16)
[2021-10-28] MEDS: meTOproloL SUCCINATE 50 MG (TOPROL XL) TAB PO SCH (08:17)
[2021-10-28] MEDS: DOCUSATE SODIUM 100 MG (COLACE) CAP PO SCH ×2 (08:21→19:33)
[2021-10-28] MEDS: polyethylene glycoL POWDER 17 GM (MIRALAX) PACK PO SCH ×2 (08:22→19:33)
[2021-10-28] MEDS: SENNA W/DOCUSATE (SENOKOT S) TABLET PO SCH ×2 (08:22→19:33)
[2021-10-28] MEDS: ENOXAPARIN 30 MG/0.3 ML (LOVENOX) SYR SC SCH ×2 (08:23→19:45)
--- NOTE | 2021-10-28 08:43 | Occupational Ther Daily Note ---
OT Current Status-Daily Note Subjective Pt in bed, agreeable to OT Tx. Mental Status/Objective Patient Orientation: Normal For Age Attachments: Polar Pack ADL-Treatment Therapy Code Descriptions/Definitions Functional [place] Measure: 0=Not Assessed/NA 4=Minimal Assistance 1=Total Assistance 5=Supervision or Setup 2=Maximal Assistance 6=Modified [place] 3=Moderate Assistance 7=Complete IndependenceSCALE: Activities may be completed with or without assistive devices. 7-Hmbhlihduj-uecuthy completes the activity by him/herself with no assistance from a helper. 5-Set-up or Clean-up Assistance-helper sets up or cleans up; patient completes activity. [place] assists only prior to or following the activity. 4-Supervision or Touching Assistance-helper provides verbal cues and/or touching/steadying and/or contact guard assistance as patient completes activity. Assistance may be provided throughout the activity or intermittently. 3-Partial/Moderate Assistance-helper does LESS THAN HALF the effort. [place] lifts, holds or supports trunk or limbs, but provides less than half the effort. 2-Substantial/Maximal Assistance-helper does MORE THAN HALF the effort. [place] lifts or holds trunk or limbs and provides more than half the effort. 2-Psmhmrtuv-dwfjyz does ALL the effort. Patient does none of the effort to complete the activity. Or, the assistance of 2 or more helpers is required for the patient to complete the activity. If activity was not attempted, code reason: 7-Patient Refused. 9-Not Applicable-not attempted and the patient did not perform the activity before the current illness, exacerbation or injury. 10-Not Attempted due to Environmental Limitations-(lack of equipment, weather restraints, etc.). 88-Not Attempted due to Medical Conditions or Safety Concerns. Eating (QC): 6 (Per pt report,) Oral Hygiene (QC): 6 (Per clincial judgment and pt report, IND seated.) Toileting Hygiene (QC): 3 (Min A for thoroughness after BM. Pt able to manage clothing. Toilet tongs utilized.) Toilet Transfer (QC): 4 (SBA on/off BSC over toilet.) Other Treatment Pt in bed, transferred supine to sit EOB with assistance getting LLE out of bed. Pt completed sit to stand from EOB with SBA, then used FWW to walk into the bathroom and transfer onto BS over toilet. Pt completed toileting, required min A for thoroughness. Pt stood from BS, transferring to w/c with SBA. Pt's nurse present to give pt meds, then pt propelled w/c to therapy gym. OT tx with focus on increasing BUE strength and activity tolerance in order to increase independence with ADLs. Pt completed arm bike x13 at 20 Watt resistance with 1 rest break. Pt then complete pipe tree activity, 1lb wrist weights BUEs. Pt required increased time and moderate cues to correctly assemble the pipe tree following printed picture due to pt being distracted with talking and telling stories throughout the activity. Pt taken back to room via w/c. Post tx, pt up in w/c, call light in reach and all needs met, polar pack applied to L knee. Education OT Patient Education: Correct positioning, Energy conservation, Modified ADL techniques, Progress toward Goal/Update tx plan, Purpose of tx/functional activities, Rehab process Teaching Recipient: Patient Teaching Methods: Discussion Response to Teaching: Verbalize Understanding OT Short Term Goals Short Term Goals Time Frame: Nov 04, 2021 Shower/bathe self: 3 Lower body dressin Putting on/taking off footwear: 3 OT Lieutenant [employer]istics Goals Shelter Goals Time Frame: Nov 20, 2021 Eating (QC): 6 Oral Hygiene (QC): 6 Toileting Hygiene (QC): 6 Shower/Bathe Self (QC): 4 Upper Body Dressing (QC): 6 Lower Body Dressing (QC): 4 On/Off Footwear (QC): 4 Additional Goals: 1-Demonstrate ADL Tasks, 2-Verbalize Understanding, 3- ImproveStrength/Shanice 1=Demonstrate adherence to instructed precautions during ADL tasks. 2=Patient will verbalize/demonstrate understanding of assistive devices/modifications for ADL. 3=Patient will improve strength/tolerance for activity to enable patient to perform ADL's. OT Education/Plan Problem List/Assessment Assessment: Decreased Activ Tolerance, Decreased UE Strength, Impaired Funct Balance, Impaired I ADL's, Impaired Self-Care Skills Discharge Recommendations Plan/Recommendations: Continue POC Treatment Plan/Plan of Care Patient would benefit from OT for education, treatment and training to promote independence in ADL's, mobility, safety and/or upper extremity function for ADL's. Plan of Care: ADL Retraining, Functional Mobility, Group Exercise/Act as Ind, UE Funct Exercise/Act Treatment Duration: Nov 20, 2021 Frequency: At least 5 of 7 days/Wk (IRF) Estimated Hrs Per Day: 1.5 hours per day Rehab Potential: Fair Time/GCodes Start Time: 08:00 Stop Time: 09:30 Total Time Billed (hr/min): 90 Billed Treatment Time 1, ADL 2 (30'), EX (15'), FA 3 (45') SONYA PRESTON OT Oct 28, 2021 08:43
--- NOTE | 2021-10-28 11:07 | Physical Therapy Daily Note ---
PT Daily Note-Current Subjective Pt. agrees to Rx. States she has not been very active prior to this. Her 5th wheel trailer she lives in is about 35 ft long Pain Location: No Pain Reported Mental Status Patient Orientation: Normal For Age Transfers SCALE: Activities may be completed with or without assistive devices. 5-Hmqkwkacei-hjevwtd completes the activity by him/herself with no assistance from a helper. 5-Set-up or Clean-up Assistance-helper sets up or cleans up; patient completes activity. [place] assists only prior to or following the activity. 4-Supervision or Touching Assistance-helper provides verbal cues and/or touching/steadying and/or contact guard assistance as patient completes activity. Assistance may be provided throughout the activity or intermittently. 3-Partial/Moderate Assistance-helper does LESS THAN HALF the effort. [place] lif ts, holds or supports trunk or limbs, but provides less than half the effort. 2-Substantial/Maximal Assistance-helper does MORE THAN HALF the effort. [place] lifts or holds trunk or limbs and provides more than half the effort. 4-Ihkqsnmqs-tewtjo does ALL the effort. Patient does none of the effort to complete the activity. Or, the assistance of 2 or more helpers is required for the patient to complete the activity. If activity was not attempted, code reason: 7-Patient Refused. 9-Not Applicable-not attempted and the patient did not perform the activity before the current illness, exacerbation or injury. 10-Not Attempted due to Environmental Limitations-(lack of equipment, weather restraints, etc.). 88-Not Attempted due to Medical Conditions or Safety Concerns. Roll Left & Right (QC): 5 Sit to Lying (QC): 5 Sit to Stand (QC): 5 Chair/Mfa-rf-Awxta Xfer(QC): 5 Toilet Transfer (QC): 5 Weight Bearing Left Lower Extremity: Left Weight Bearing/Tolerated Gait Training Does the Patient Walk?: Yes Walk 10 feet (QC): 5 Walk 50 ft with 2 Turns(QC): 5 Gait Persons Needed: 1 Gait Assistive Device: FWW 35ftx2, 25ftx2, 10ft, FWW w/c behind, step to gait pattern, pt. fatigued and dyspneic, recovering quickly each trial Wheelchair Training Does the Pt Use a Wheelchair?: Yes Wheel 50 ft with 2 turns (QC): 4 Type of Wheelchair: Manual has difficulty reaching the wheels of the chair secondary to needed width of chair, stalls and needs assist at times Exercises Seated Therapy Exercises: Ankle pumps, Sit to stand, Long arc quads Seated Reps: 15 NuStep Minutes: 12 NuStep Workload: 2 Treatments gait, w/c mob, toileting, therex Assessment Current Status: Good Progress PT Short Term Goals Short Term Goals Time Frame: Oct 30, 2021 Roll Left & Right: 4 Sit to lyin Lying to sitting on side of be: 3 Sit to stand: 4 Chair/erk-ey-vgdtj transfer: 4 Walk 10 feet: 4 Walk 50 feet with two turns: 4 PT Stripping Shovel Oiler Goals Stripping Shovel Oiler Goals PT Nursing Home Goals Time Frame: Nov 13, 2021 Roll Left & Right (QC): 6 Sit to Lying (QC): 4 (SBA) Lying-Sitting on Side/Bed(QC): 4 (SBA) Sit to Stand (QC): 5 Chair/Xyk-ia-Gymqu Xfer(QC): 5 Toilet Transfer (QC): 5 Car Transfer (QC): 3 Does the Patient Walk: Yes Walk 10 feet (QC): 5 Walk 50ft with 2 Turns (QC): 5 Walk 150 ft (QC): 5 Walking 10ft on Uneven Surface: 4 1 Step (curb) (QC): 4 4 Steps (QC): 4 12 Steps (QC): 88 Picking up an Object (QC): 5 Wheel 50 feet with 2 turns (QC: 4 Wheel 150 feet: 4 PT Plan Treatment/Plan Treatment Plan: Continue Plan of Care Treatment Plan: Bed Mobility, Education, Functional Activity Shanice, Functional Strength, Group Therapy, Gait, Safety, Therapeutic Exercise, Transfers Treatment Duration: Nov 13, 2021 Frequency: At least 5 of 7 days/Wk (IRF) Estimated Hrs Per Day: 1.5 hours per day Patient and/or Family Agrees t: Yes Safety Risks/Education Patient Education: Gait Training, Transfer Techniques, Correct Positioning, W/C Management, Disease Process, Safety Issues Teaching Recipient: Patient Teaching Methods: Demonstration, Discussion Response to Teaching: Verbalize Understanding, Return Demonstration, Reinforcement Needed Time/GCodes Time In: 1000 Time Out: 1100 Total Billed Treatment Time: 60 Total Billed Treatment 1,EX35m,FA10m,GT15m MANOHAR SNOW [address]IVE WORKER Oct 28, 2021 11:07
[2021-10-28] MEDS: CEFDINIR 300 MG (OMNICEF) CAP PO SCH ×2 (12:24→19:44)
--- NOTE | 2021-10-28 13:39 | Physical Therapy Daily Note ---
PT Daily Note-Current Subjective Pt. in bed agrees to supine therex L TKR Pain Location: No Pain Reported Mental Status Patient Orientation: Normal For Age Transfers SCALE: Activities may be completed with or without assistive devices. 6-Gwqvjkoyhp-whwpgxa completes the activity by him/herself with no assistance from a helper. 5-Set-up or Clean-up Assistance-helper sets up or cleans up; patient completes activity. [place] assists only prior to or following the activity. 4-Supervision or Touching Assistance-helper provides verbal cues and/or touching/steadying and/or contact guard assistance as patient completes activity. Assistance may be provided throughout the activity or intermittently. 3-Partial/Moderate Assistance-helper does LESS THAN HALF the effort. [place] lifts, holds or supports trunk or limbs, but provides less than half the effort. 2-Substantial/Maximal Assistance-helper does MORE THAN HALF the effort. [place] lifts or holds trunk or limbs and provides more than half the effort. 6-Lcpkwsszl-ogrryp does ALL the effort. Patient does none of the effort to complete the activity. Or, the assistance of 2 or more helpers is required for the patient to complete the activity. If activity was not attempted, code reason: 7-Patient Refused. 9-Not Applicable-not attempted and the patient did not perform the activity before the current illness, exacerbation or injury. 10-Not Attempted due to Environmental Limitations-(lack of equipment, weather restraints, etc.). 88-Not Attempted due to Medical Conditions or Safety Concerns. Sit to Lying (QC): 5 Lying to Sitting/Side of Bed(Q: 5 Sit to Stand (QC): 5 Toilet Transfer (QC): 5 Weight Bearing Left Lower Extremity: Left Weight Bearing/Tolerated Gait Training Does the Patient Walk?: Yes Gait Assistive Device: FWW 30ftx2 SBA FWW Exercises Supine Ex: Ankle pumps, Quad Set, Glut sets, Heel Slides, Short Arc Quads, Scooting, Straight leg raise (indep x 5), Hip abd/add Supine Reps: 15 Treatments bed TRFs , LTKR protocol, gait , toilet TRFs Assessment Current Status: Good Progress PT Short Term Goals Short Term Goals Time Frame: Oct 30, 2021 Roll Left & Right: 4 Sit to lyin Lying to sitting on side of be: 3 Sit to stand: 4 Chair/ukv-uc-yxdcx transfer: 4 Walk 10 feet: 4 Walk 50 feet with two turns: 4 PT Helper/Driver Goals Helper/Driver Goals PT Chcf Goals Time Frame: Nov 13, 2021 Roll Left & Right (QC): 6 Sit to Lying (QC): 4 (SBA) Lying-Sitting on Side/Bed(QC): 4 (SBA) Sit to Stand (QC): 5 Chair/Bnx-ow-Ysdiv Xfer(QC): 5 Toilet Transfer (QC): 5 Car Transfer (QC): 3 Does the Patient Walk: Yes Walk 10 feet (QC): 5 Walk 50ft with 2 Turns (QC): 5 Walk 150 ft (QC): 5 Walking 10ft on Uneven Surface: 4 1 Step (curb) (QC): 4 4 Steps (QC): 4 12 Steps (QC): 88 Picking up an Object (QC): 5 Wheel 50 feet with 2 turns (QC: 4 Wheel 150 feet: 4 PT Plan Treatment/Plan Treatment Plan: Continue Plan of Care Treatment Plan: Bed Mobility, Education, Functional Activity Shanice, Functional Strength, Group Therapy, Gait, Safety, Therapeutic Exercise, Transfers Treatment Duration: Nov 13, 2021 Frequency: At least 5 of 7 days/Wk (IRF) Estimated Hrs Per Day: 1.5 hours per day Patient and/or Family Agrees t: Yes Safety Risks/Education Patient Education: Gait Training, Transfer Techniques, Correct Positioning, Disease Process, Safety Issues Teaching Recipient: Patient Teaching Methods: Demonstration, Discussion Response to Teaching: Verbalize Understanding, Return Demonstration, Reinforcement Needed Time/GCodes Time In: 1300 Time Out: 1335 Total Billed Treatment Time: 35 Total Billed Treatment 1,EX20m,GT15m MANOHAR SNOW APPLICATIONS CHEMIST Oct 28, 2021 13:39
[2021-10-28 19:37] VITALS: BP 123/58
[2021-10-29] MEDS: LEVOTHYROXINE 100 MCG (LEVOTHROID) TAB PO SCH (06:00)
[2021-10-29] MEDS: MULTIVIT W/MINERALS TAB (THERAGRAN M) PO SCH (06:00)
--- NOTE | 2021-10-29 06:00 | PM&R Progress Note ---
Subjective HPI/CC On Admission Date Seen by Provider: Oct 29, 2021 Time Seen by Provider: 11:00 Subjective/Events-last exam 10/29/21: Patient doing much better Patient is pretty much behind her knee No dyspnea Tramadol helps the pain Bowels moved yesterday Tolerating antibiotic for UTI 10/28/2021: Pt is doing okay Urine culture shows E-Coli so will place on her Omnicef 300 BID Discharge planned for next Tuesday Bowels moved yesterday 10/27/21: Pt is doing really well A new CPAP was provided yesterday since hers broke UA shows no severe infection but will follow-up on urine culture No more incontinence Yellow drainage from the incision, Dr. Noriega is aware 10/26/2021: Patient doing well In and out cath for UA will be performed due to UTI symptoms Cipro was completed prior to surgery Platelet count of 99,000 Patient told me she sees a bi lead up at for cirrhosis from [facility] Ultrasound that was ordered was canceled due to work-up already completed for liver 10/25/2021: Tramadol working very well for her Hydrocodone for severe pain Family at bedside Incontinence is improved Checked meds and labs 10/24/2021: Patient doing really well Working hard Percocet is too much for her so we will start hydrocodone and tramadol Remains on 2 L at night since her CPAP broke Incontinence noted Bowels are moving Review of Systems General: Fatigue, Malaise Musculoskeletal: leg pain Objective Exam Vital Signs Vital Signs Date Time Temp Pulse Resp B/P (MAP) Pulse Ox O2 Delivery O2 Flow Rate FiO2 10/29/21 21:10 37.1 66 28 136/79 (98) 95 NIV CPAP 10/25/21 20:00 2.00 Capillary Refill : General Appearance: No Apparent Distress, WD/WN, Chronically ill, Obese HEENT: PERRL/EOMI, Normal ENT Inspection, Pharynx Normal Neck: Full Range of Motion, Normal Inspection, Non Tender, Supple, Carotid Bruit Respiratory: Chest Non Tender, Lungs Clear, Normal Breath Sounds, No Accessory Muscle Use, No Respiratory Distress Cardiovascular: Regular Rate, Rhythm, No Edema, No Gallop, No JVD, No Murmur, Normal Peripheral Pulses Gastrointestinal: Normal Bowel Sounds, No Organomegaly, No Pulsatile Mass, Non Tender, Soft Back: Normal Inspection, No CVA Tenderness, No Vertebral Tenderness Extremity: Normal Capillary Refill, Normal Inspection, Normal Range of Motion (Except left leg), Non Tender, No Calf Tenderness, No Pedal Edema Neurologic/Psychiatric: Alert, Oriented x3, No Motor/Sensory Deficits, Normal Mood/Affect, Abnormal Gait, Motor Weakness (Left leg) Skin: Normal Color, Warm/Dry Lymphatic: No Adenopathy Results/Procedures Lab Patient resulted labs reviewed. FIM Transfers Therapy Code Descriptions/Definitions Functional [place] Measure: 0=Not Assessed/NA 4=Minimal Assistance 1=Total Assistance 5=Supervision or Setup 2=Maximal Assistance 6=Modified [place] 3=Moderate Assistance 7=Complete IndependenceSCALE: Activities may be completed with or without assistive devices. 4-Gcplxwnnxx-rojrwvc completes the activity by him/herself with no assistance from a helper. 5-Set-up or Clean-up Assistance-helper sets up or cleans up; patient completes activity. [place] assists only prior to or following the activity. 4-Supervision or Touching Assistance-helper provides verbal cues and/or touching/steadying and/or contact guard assistance as patient completes activity. Assistance may be provided throughout the activity or intermittently. 3-Partial/Moderate Assistance-helper does LESS THAN HALF the effort. [place] lifts, holds or supports trunk or limbs, but provides less than half the effort. 2-Substantial/Maximal Assistance-helper does MORE THAN HALF the effort. [place] lifts or holds trunk or limbs and provides more than half the effort. 9-Glnxxrypz-gbkksp does ALL the effort. Patient does none of the effort to complete the activity. Or, the assistance of 2 or more helpers is required for the patient to complete the activity. If activity was not attempted, code reason: 7-Patient Refused. 9-Not Applicable-not attempted and the patient did not perform the activity before the current illness, exacerbation or injury. 10-Not Attempted due to Environmental Limitations-(lack of equipment, weather restraints, etc.). 88-Not Attempted due to Medical Conditions or Safety Concerns. Roll Left to Right (QC): 5 Sit to Lying (QC): 5 Sit to Stand (QC): 5 Chair/Yos-fg-Mcnut Xfer(QC): 5 Car Transfer (QC): 88 Gait Training Does the Patient Walk?: Yes Distance: 20'x4 Walk 10 feet (QC): 5 Walk 50 ft with 2 Turns(QC): 5 Walk 150 ft (QC): 88 Walking 10ft/uneven surface-QC: 88 Gait Persons Needed: 1 Gait Assistive Device: FWW Wheelchair Training Does the Pt Use a Wheelchair?: Yes Distance: 50' Wheel 50 ft with 2 turns (QC): 4 Wheel 150 ft (QC): 88 Type of Wheelchair: Manual Stair Training 1 Step (curb) (QC): 88 4 Steps (QC): 88 12 Steps (QC): 88 Balance Picking up an Object (QC): 88 ADL-Treatment Eating (QC): 6 (Per pt report,) Oral Hygiene (QC): 6 (Per clincial judgment and pt report, IND seated.) Bathing Location: L Arm, R Arm, L Upper Leg, R Upper Leg, L Lower Leg (including foot), R Lower Leg (including foot), Chest, Abdomen, Buttocks, Perineal Area Shower/Bathe Self (QC): 4 (CGA for sit to regional business development manager shower to wash all parts. LH sponge utilized.) Upper Body Dressing (QC): 3 (Min A with pullover night gown. Pt able to thread BUEs and over head, slight assistance managing down.) Lower Body Dressing (QC): 2 (Pt required assistance to thread BLEs and slight assist with pant hike. ) On/Off Footwear (QC): 2 ( max A needed to don socks. Total assist with TEDhose.) Toileting Hygiene (QC): 3 (Min A for thoroughness after BM. Pt able to manage clothing. Toilet tongs utilized.) Toilet Transfer (QC): 4 (SBA on/off BSC over toilet.) Assessment/Plan Assessment and Plan Assess & Plan/Chief Complaint Assessment: Status post left total knee replacement postop day #6 Super morbid obesity Diabetes Hypertension NGUYEN on CPAP Hyperlipidemia Hypothyroidism Pacemaker Cirrhosis from [facility] Thrombocytopenia from cirrhosis UTI E. coli placed on Omnicef 10/28/2021 Plan: Home meds Pain control Bowel regimen Rehab protocol 10/24/2021: Pain control DC Percocet and start Ultram and hydrocodone Continue aggressive rehab 10/25/2021: Continue aggressive rehab Ultram working very well for her 10/26/2021: Check UA Continue aggressive therapy 10/27/21: Monitor incision 10/28/2021: UTI treatment Aggressive rehab DC 11/06/2021 10/29/2021: Supportive care UTI treatment (1) Status post left knee replacement (2) Non-insulin dependent type 2 diabetes mellitus Status: Chronic (3) HTN (hypertension) Status: Chronic (4) NGUYEN (obstructive sleep apnea) Status: Chronic (5) Hypothyroidism Status: Chronic (6) Pacemaker (7) Chronic diastolic heart failure CULLEN TILLMAN DO Oct 29, 2021 06:00
[2021-10-29 07:15] VITALS: BP 117/54
[2021-10-29] MEDS: CEFDINIR 300 MG (OMNICEF) CAP PO SCH ×2 (08:24→20:28)
[2021-10-29] MEDS: SERTRALINE 100 MG (ZOLOFT) TAB PO SCH (08:24)
[2021-10-29] MEDS: ASPIRIN E.C. 81 MG (ECOTRIN) TAB PO SCH (08:24)
[2021-10-29] MEDS: ENOXAPARIN 30 MG/0.3 ML (LOVENOX) SYR SC SCH (08:25)
[2021-10-29] MEDS: polyethylene glycoL POWDER 17 GM (MIRALAX) PACK PO SCH ×2 (08:25→20:24)
[2021-10-29] MEDS: DOCUSATE SODIUM 100 MG (COLACE) CAP PO SCH ×2 (08:25→20:24)
[2021-10-29] MEDS: meTOproloL SUCCINATE 50 MG (TOPROL XL) TAB PO SCH (08:25)
[2021-10-29] MEDS: SENNA W/DOCUSATE (SENOKOT S) TABLET PO SCH ×2 (08:25→20:24)
--- NOTE | 2021-10-29 09:17 | Physical Therapy Daily Note ---
PT Daily Note-Current Subjective Patient sitting at the edge of the bed with IT SERVICE TECHNICIAN upon PT arrival, agreeable to treatment. Patient rates left knee pain currently at 5/10, but notes when she stands up the pain usually increases minimally. Mental Status Patient Orientation: Person, Place, Time, Situation Transfers SCALE: Activities may be completed with or without assistive devices. 3-Onnhnwmzoy-noqmfqo completes the activity by him/herself with no assistance from a helper. 5-Set-up or Clean-up Assistance-helper sets up or cleans up; patient completes activity. [place] assists only prior to or following the activity. 4-Supervision or Touching Assistance-helper provides verbal cues and/or touching/steadying and/or contact guard assistance as patient completes activity. Assistance may be provided throughout the activity or intermittently. 3-Partial/Moderate Assistance-helper does LESS THAN HALF the effort. [place] lifts, holds or supports trunk or limbs, but provides less than half the effort. 2-Substantial/Maximal Assistance-helper does MORE THAN HALF the effort. [place] lifts or holds trunk or limbs and provides more than half the effort. 8-Pcrervaic-qngnog does ALL the effort. Patient does none of the effort to complete the activity. Or, the assistance of 2 or more helpers is required for the patient to complete the activity. If activity was not attempted, code reason: 7-Patient Refused. 9-Not Applicable-not attempted and the patient did not perform the activity before the current illness, exacerbation or injury. 10-Not Attempted due to Environmental Limitations-(lack of equipment, weather restraints, etc.). 88-Not Attempted due to Medical Conditions or Safety Concerns. Sit to Stand (QC): 4 Chair/Bfo-lz-Bdnnq Xfer(QC): 4 Toilet Transfer (QC): 4 Weight Bearing Left Lower Extremity: Left Weight Bearing/Tolerated Gait Training Does the Patient Walk?: Yes Distance: 50 feet x 4 Walk 10 feet (QC): 5 Walk 50 ft with 2 Turns(QC): 5 Gait Persons Needed: 1 Gait Assistive Device: FWW Exercises Seated Therapy Exercises: Ankle pumps, Long arc quads, Hip flexion, Hamstring Curls Seated Reps: 20 Standing: Heel/toe raises, Marching Standing Reps: 10 NuStep Minutes: 10 NuStep Workload: 2 Assessment Current Status: Good Progress Patient tolerated treatment well and demonstrates minimal increase in overall gait distance and with each gait repetition. Patient performs all observed transfers with Mod I/SBA. Patient performs sitting LE therapeutic exercise. Patient ambulates 50 feet x 2 with sitting rest break. Performs Nu Step x 10 minutes level 2 with focus on ROM to bilateral knees. Patient performs standing LE therapeutic exercise at the bar with SBA. Patient ambulates 50 feet x 2 back to her recliner. Patient in recliner post treatment with all needs met, nursing notified, call light in reach, polar pack on the left knee. PT Short Term Goals Short Term Goals Time Frame: Oct 30, 2021 Roll Left & Right: 4 Sit to lyin Lying to sitting on side of be: 3 Sit to stand: 4 Chair/dyi-zk-pjtii transfer: 4 Walk 10 feet: 4 Walk 50 feet with two turns: 4 PT Skilled Nursing Goals Skilled Nursing Goals PT Skilled Nursing Goals Time Frame: Nov 13, 2021 Roll Left & Right (QC): 6 Sit to Lying (QC): 4 (SBA) Lying-Sitting on Side/Bed(QC): 4 (SBA) Sit to Stand (QC): 5 Chair/Htj-er-Ymhvp Xfer(QC): 5 Toilet Transfer (QC): 5 Car Transfer (QC): 3 Does the Patient Walk: Yes Walk 10 feet (QC): 5 Walk 50ft with 2 Turns (QC): 5 Walk 150 ft (QC): 5 Walking 10ft on Uneven Surface: 4 1 Step (curb) (QC): 4 4 Steps (QC): 4 12 Steps (QC): 88 Picking up an Object (QC): 5 Wheel 50 feet with 2 turns (QC: 4 Wheel 150 feet: 4 PT Plan Treatment/Plan Treatment Plan: Continue Plan of Care Treatment Plan: Bed Mobility, Education, Functional Activity Shanice, Functional Strength, Group Therapy, Gait, Safety, Therapeutic Exercise, Transfers Treatment Duration: Nov 13, 2021 Frequency: At least 5 of 7 days/Wk (IRF) Estimated Hrs Per Day: 1.5 hours per day Patient and/or Family Agrees t: Yes Safety Risks/Education Patient Education: Gait Training, Transfer Techniques, Reviewed Precautions, Reviewed Use of Ice Teaching Recipient: Patient Teaching Methods: Demonstration, Discussion Response to Teaching: Verbalize Understanding, Return Demonstration Time/GCodes Time In: 800 Time Out: 900 Total Billed Treatment Time: 60 Total Billed Treatment Visit, Gait x 2, Ex x 2, CPM [facility] ROBERTS PT Oct 29, 2021 09:17
--- NOTE | 2021-10-29 09:43 | Occupational Ther Daily Note ---
OT Current Status-Daily Note Subjective Pt up in recliner, agreeable to OT Tx. Mental Status/Objective Patient Orientation: Normal For Age Attachments: Polar Pack ADL-Treatment Therapy Code Descriptions/Definitions Functional [place] Measure: 0=Not Assessed/NA 4=Minimal Assistance 1=Total Assistance 5=Supervision or Setup 2=Maximal Assistance 6=Modified [place] 3=Moderate Assistance 7=Complete IndependenceSCALE: Activities may be completed with or without assistive devices. 2-Gbuqhuhzjm-mhkrlhi completes the activity by him/herself with no assistance from a helper. 5-Set-up or Clean-up Assistance-helper sets up or cleans up; patient completes activity. [place] assists only prior to or following the activity. 4-Supervision or Touching Assistance-helper provides verbal cues and/or touching/steadying and/or contact guard assistance as patient completes activity. Assistance may be provided throughout the activity or intermittently. 3-Partial/Moderate Assistance-helper does LESS THAN HALF the effort. [place] lifts, holds or supports trunk or limbs, but provides less than half the effort. 2-Substantial/Maximal Assistance-helper does MORE THAN HALF the effort. [place] lifts or holds trunk or limbs and provides more than half the effort. 9-Pirmunlro-zmwepo does ALL the effort. Patient does none of the effort to complete the activity. Or, the assistance of 2 or more helpers is required for the patient to complete the activity. If activity was not attempted, code reason: 7-Patient Refused. 9-Not Applicable-not attempted and the patient did not perform the activity before the current illness, exacerbation or injury. 10-Not Attempted due to Environmental Limitations-(lack of equipment, weather restraints, etc.). 88-Not Attempted due to Medical Conditions or Safety Concerns. Toileting Hygiene (QC): 3 (Min A for thoroughness) Toilet Transfer (QC): 4 (SBA on/off BSC.) Other Treatment Pt up in recliner, states she would prefer to complete ADLs tomorrow. Pt transferred sit to stand with CGA, then CGA transfer to w/c. Pt propelled w/c part way to the therapy gym, then OT assisted the rest of the way. OT tx with focus on increasing BUE Strength and activity tolerance in order to maximize independence with transfers/mobility, and ADLs. Pt completed x15 mins on arm bike, 20 Watt resistance, no rest breaks. Pt then completed pegboard, placing/removing 100 pegs BUEs, 1 lb wrist weights applies BUEs. Pt removed beads from heavy resistance theraputty, able to locate all beads without cues. Pt then completed connect 4 game, 1lb wrist weights BUEs in order to increase UE strength, activity tolerance and problem solving. Pt won 1/3 games. Pt taken back to room, used FWW to transfer into bathroom and onto MI, SBA. Pt completed toileting, then used FWW to transfer to bed, SBA. Post tx, pt in bed, call light in reach and all needs met. Education OT Patient Education: Correct positioning, Energy conservation, Exercise program, Modified ADL techniques, Progress toward Goal/Update tx plan, Purpose of tx/functional activities Teaching Recipient: Patient Teaching Methods: Discussion Response to Teaching: Verbalize Understanding OT Short Term Goals Short Term Goals Time Frame: Nov 04, 2021 Shower/bathe self: 3 Lower body dressin Putting on/taking off footwear: 3 OT Longterm Goals Truck Crane Operator Helper Goals Time Frame: Nov 20, 2021 Eating (QC): 6 Oral Hygiene (QC): 6 Toileting Hygiene (QC): 6 Shower/Bathe Self (QC): 4 Upper Body Dressing (QC): 6 Lower Body Dressing (QC): 4 On/Off Footwear (QC): 4 Additional Goals: 1-Demonstrate ADL Tasks, 2-Verbalize Understanding, 3- ImproveStrength/Shanice 1=Demonstrate adherence to instructed precautions during ADL tasks. 2=Patient will verbalize/demonstrate understanding of assistive devices/m odifications for ADL. 3=Patient will improve strength/tolerance for activity to enable patient to perform ADL's. OT Education/Plan Problem List/Assessment Assessment: Decreased Activ Tolerance, Decreased UE Strength, Impaired Funct Balance, Impaired I ADL's, Impaired Self-Care Skills Discharge Recommendations Plan/Recommendations: Continue POC Treatment Plan/Plan of Care Patient would benefit from OT for education, treatment and training to promote independence in ADL's, mobility, safety and/or upper extremity function for ADL's. Plan of Care: ADL Retraining, Functional Mobility, Group Exercise/Act as Ind, UE Funct Exercise/Act Treatment Duration: Nov 20, 2021 Frequency: At least 5 of 7 days/Wk (IRF) Estimated Hrs Per Day: 1.5 hours per day Rehab Potential: Fair Time/GCodes Start Time: 09:20 Stop Time: 10:50 Total Time Billed (hr/min): 90 Billed Treatment Time 1, EX (15'), ADL (15'), FA 4 (60') SONYA PRESTON OT Oct 29, 2021 09:43
--- NOTE | 2021-10-29 13:34 | Physical Therapy Daily Note ---
PT Daily Note-Current Subjective Patient lying supine in bed upon PT arrival, agreeable to treatment. Patient rates pain in left knee at 6/10 currently. Transfers SCALE: Activities may be completed with or without assistive devices. 9-Cxpkwaddib-judcwqp completes the activity by him/herself with no assistance from a helper. 5-Set-up or Clean-up Assistance-helper sets up or cleans up; patient completes activity. [place] assists only prior to or following the activity. 4-Supervision or Touching Assistance-helper provides verbal cues and/or touching/steadying and/or contact guard assistance as patient completes activity. Assistance may be provided throughout the activity or intermittently. 3-Partial/Moderate Assistance-helper does LESS THAN HALF the effort. [place] lifts, holds or supports trunk or limbs, but provides less than half the effort. 2-Substantial/Maximal Assistance-helper does MORE THAN HALF the effort. [place] lifts or holds trunk or limbs and provides more than half the effort. 5-Zehperwxs-qjrtsa does ALL the effort. Patient does none of the effort to complete the activity. Or, the assistance of 2 or more helpers is required for the patient to complete the activity. If activity was not attempted, code reason: 7-Patient Refused. 9-Not Applicable-not attempted and the patient did not perform the activity before the current illness, exacerbation or injury. 10-Not Attempted due to Environmental Limitations-(lack of equipment, weather restraints, etc.). 88-Not Attempted due to Medical Conditions or Safety Concerns. Roll Left & Right (QC): 5 Sit to Lying (QC): 5 Lying to Sitting/Side of Bed(Q: 3 Sit to Stand (QC): 4 Chair/Hbi-jy-Clvck Xfer(QC): 4 Toilet Transfer (QC): 4 Weight Bearing Left Lower Extremity: Left Weight Bearing/Tolerated Gait Training Does the Patient Walk?: Yes Distance: 40, 50, 90 feet Walk 10 feet (QC): 4 Walk 50 ft with 2 Turns(QC): 4 Gait Assistive Device: FWW Exercises Supine Ex: Ankle pumps, Quad Set, Glut sets Supine Reps: 20 Seated Therapy Exercises: Long arc quads, Hamstring Curls, Hip abd/add Seated Reps: 20 Assessment Current Status: Good Progress Patient tolerated treatment well and demonstrates minimal increase in overall gait distance and with each gait repetition. Patient performs all observed transfers with CGA/min A. Patient performs sitting LE therapeutic exercise. Patient ambulates 50 feet, 40 feet, then 90 feet with sitting rest break between each rep. Patient in bed post treatment with all needs met, nursing notified, call light in reach, polar pack on the left knee. PT Short Term Goals Short Term Goals Time Frame: Oct 30, 2021 Roll Left & Right: 4 Sit to lyin Lying to sitting on side of be: 3 Sit to stand: 4 Chair/olv-nk-kqrqh transfer: 4 Walk 10 feet: 4 Walk 50 feet with two turns: 4 PT Director Career Services Goals Half-Way Goals PT Half-Way Goals Time Frame: Nov 13, 2021 Roll Left & Right (QC): 6 Sit to Lying (QC): 4 (SBA) Lying-Sitting on Side/Bed(QC): 4 (SBA) Sit to Stand (QC): 5 Chair/Iai-vz-Pkkyy Xfer(QC): 5 Toilet Transfer (QC): 5 Car Transfer (QC): 3 Does the Patient Walk: Yes Walk 10 feet (QC): 5 Walk 50ft with 2 Turns (QC): 5 Walk 150 ft (QC): 5 Walking 10ft on Uneven Surface: 4 1 Step (curb) (QC): 4 4 Steps (QC): 4 12 Steps (QC): 88 Picking up an Object (QC): 5 Wheel 50 feet with 2 turns (QC: 4 Wheel 150 feet: 4 PT Plan Treatment/Plan Treatment Plan: Continue Plan of Care Treatment Plan: Bed Mobility, Education, Functional Activity Shanice, Functional Strength, Group Therapy, Gait, Safety, Therapeutic Exercise, Transfers Treatment Duration: Nov 13, 2021 Frequency: At least 5 of 7 days/Wk (IRF) Estimated Hrs Per Day: 1.5 hours per day Patient and/or Family Agrees t: Yes Safety Risks/Education Patient Education: Gait Training, Transfer Techniques, Reviewed Precautions Teaching Recipient: Patient Teaching Methods: Demonstration, Discussion Response to Teaching: Verbalize Understanding, Return Demonstration Time/GCodes Time In: 1250 Time Out: 1320 Total Billed Treatment Time: 30 Total Billed Treatment Visit, Claudia, [facility] Michele PT Oct 29, 2021 13:34
[2021-10-29] MEDS: ENOXAPARIN 60 MG/0.6 ML (LOVENOX) SYR SC SCH (20:28)
[2021-10-29 21:10] VITALS: BP 136/79
[2021-10-30] MEDS: MULTIVIT W/MINERALS TAB (THERAGRAN M) PO SCH (06:27)
[2021-10-30] MEDS: LEVOTHYROXINE 100 MCG (LEVOTHROID) TAB PO SCH (06:27)
--- NOTE | 2021-10-30 06:42 | PM&R Progress Note ---
Subjective HPI/CC On Admission Date Seen by Provider: Oct 30, 2021 Time Seen by Provider: 09:00 Subjective/Events-last exam 10/30/2021: Pt doing about the same No falls Peroneal vein thrombosis noted on ultrasound Dr. Noriega ordered and she had been on Lovenox 60 mg twice daily so we will shift her to oral anticoagulation No significant changes 10/29/21: Patient doing much better Patient is pretty much behind her knee No dyspnea Tramadol helps the pain Bowels moved yesterday Tolerating antibiotic for UTI 10/28/2021: Pt is doing okay Urine culture shows E-Coli so will place on her Omnicef 300 BID Discharge planned for next Tuesday Bowels moved yesterday 10/27/21: Pt is doing really well A new CPAP was provided yesterday since hers broke UA shows no severe infection but will follow-up on urine culture No more incontinence Yellow drainage from the incision, Dr. Noriega is aware 10/26/2021: Patient doing well In and out cath for UA will be performed due to UTI symptoms Cipro was completed prior to surgery Platelet count of 99,000 Patient told me she sees a patient case coordinator up at for cirrhosis from [facility] Ultrasound that was ordered was canceled due to work-up already completed for liver 10/25/2021: Tramadol working very well for her Hydrocodone for severe pain Family at bedside Incontinence is improved Checked meds and labs 10/24/2021: Patient doing really well Working hard Percocet is too much for her so we will start hydrocodone and tramadol Remains on 2 L at night since her CPAP broke Incontinence noted Bowels are moving Review of Systems Musculoskeletal: leg pain Objective Exam Vital Signs Vital Signs Date Time Temp Pulse Resp B/P (MAP) Pulse Ox O2 Delivery O2 Flow Rate FiO2 10/30/21 20:40 94 Room Air 10/30/21 19:58 37.4 66 20 129/63 (85) 10/25/21 20:00 2.00 Capillary Refill : General Appearance: No Apparent Distress, WD/WN, Chronically ill, Obese HEENT: PERRL/EOMI, Normal ENT Inspection, Pharynx Normal Neck: Full Range of Motion, Normal Inspection, Non Tender, Supple, Carotid Bruit Respiratory: Chest Non Tender, Lungs Clear, Normal Breath Sounds, No Accessory Muscle Use, No Respiratory Distress Cardiovascular: Regular Rate, Rhythm, No Edema, No Gallop, No JVD, No Murmur, Normal Peripheral Pulses Gastrointestinal: Normal Bowel Sounds, No Organomegaly, No Pulsatile Mass, Non Tender, Soft Back: Normal Inspection, No CVA Tenderness, No Vertebral Tenderness Extremity: Normal Capillary Refill, Normal Inspection, Normal Range of Motion (Except left leg), Non Tender, No Calf Tenderness, No Pedal Edema Neurologic/Psychiatric: Alert, Oriented x3, No Motor/Sensory Deficits, Normal Mood/Affect, Abnormal Gait, Motor Weakness (Left leg) Skin: Normal Color, Warm/Dry Lymphatic: No Adenopathy Results/Procedures Lab Patient resulted labs reviewed. FIM Transfers Therapy Code Descriptions/Definitions Functional [place] Measure: 0=Not Assessed/NA 4=Minimal Assistance 1=Total Assistance 5=Supervision or Setup 2=Maximal Assistance 6=Modified Gabbs 3=Moderate Assistance 7=Complete IndependenceSCALE: Activities may be completed with or without assistive devices. 5-Safqfndnkc-kasysou completes the activity by him/herself with no assistance from a helper. 5-Set-up or Clean-up Assistance-helper sets up or cleans up; patient completes activity. [place] assists only prior to or following the activity. 4-Supervision or Touching Assistance-helper provides verbal cues and/or touching/steadying and/or contact guard assistance as patient completes activity. Assistance may be provided throughout the activity or intermittently. 3-Partial/Moderate Assistance-helper does LESS THAN HALF the effort. [place] lifts, holds or supports trunk or limbs, but provides less than half the effort. 2-Substantial/Maximal Assistance-helper does MORE THAN HALF the effort. [place] lifts or holds trunk or limbs and provides more than half the effort. 7-Qyiatfooc-quqbac does ALL the effort. Patient does none of the effort to complete the activity. Or, the assistance of 2 or more helpers is required for the patient to complete the activity. If activity was not attempted, code reason: 7-Patient Refused. 9-Not Applicable-not attempted and the patient did not perform the activity before the current illness, exacerbation or injury. 10-Not Attempted due to Environmental Limitations-(lack of equipment, weather restraints, etc.). 88-Not Attempted due to Medical Conditions or Safety Concerns. Roll Left to Right (QC): 5 Sit to Lying (QC): 5 Sit to Stand (QC): 4 Chair/Dqp-pb-Mgtex Xfer(QC): 4 Car Transfer (QC): 88 Gait Training Does the Patient Walk?: Yes Distance: 40, 50, 90 feet Walk 10 feet (QC): 4 Walk 50 ft with 2 Turns(QC): 4 Walk 150 ft (QC): 88 Walking 10ft/uneven surface-QC: 88 Gait Persons Needed: 1 Gait Assistive Device: FWW Wheelchair Training Does the Pt Use a Wheelchair?: Yes Distance: 50' Wheel 50 ft with 2 turns (QC): 4 Wheel 150 ft (QC): 88 Type of Wheelchair: Manual Stair Training 1 Step (curb) (QC): 88 4 Steps (QC): 88 12 Steps (QC): 88 Balance Picking up an Object (QC): 88 ADL-Treatment Eating (QC): 6 (Per pt report,) Oral Hygiene (QC): 6 (Per clincial judgment and pt report, IND seated.) Bathing Location: L Arm, R Arm, L Upper Leg, R Upper Leg, L Lower Leg (including foot), R Lower Leg (including foot), Chest, Abdomen, Buttocks, P erineal Area Shower/Bathe Self (QC): 4 (CGA for sit to hat body inspector shower to wash all parts. LH sponge utilized.) Upper Body Dressing (QC): 3 (Min A with pullover night gown. Pt able to thread BUEs and over head, slight assistance managing down.) Lower Body Dressing (QC): 2 (Pt required assistance to thread BLEs and slight assist with pant hike. ) On/Off Footwear (QC): 2 ( max A needed to don socks. Total assist with TEDhos e.) Toileting Hygiene (QC): 3 (Min A for thoroughness) Toilet Transfer (QC): 4 (SBA on/off BSC.) Assessment/Plan Assessment and Plan Assess & Plan/Chief Complaint Assessment: Status post left total knee replacement postop day #6 Super morbid obesity Diabetes Hypertension NGUYEN on CPAP Hyperlipidemia Hypothyroidism Pacemaker Cirrhosis from [facility] Thrombocytopenia from cirrhosis UTI E. coli placed on Omnicef 10/28/2021 Left perineal thrombosis failed Lovenox 60 mg twice daily so started Eliquis acute thrombosis dose Plan: Home meds Pain control Bowel regimen Rehab protocol 10/24/2021: Pain control DC Percocet and start Ultram and hydrocodone Continue aggressive rehab 10/25/2021: Continue aggressive rehab Ultram working very well for her 10/26/2021: Check UA Continue aggressive therapy 10/27/21: Monitor incision 10/28/2021: UTI treatment Aggressive rehab DC 11/06/2021 10/29/2021: Supportive care UTI treatment 10/30/2021: Start Eliquis for thrombosis Continue UTI treatment (1) Status post left knee replacement (2) Non-insulin dependent type 2 diabetes mellitus Status: Chronic (3) HTN (hypertension) Status: Chronic (4) NGUYEN (obstructive sleep apnea) Status: Chronic (5) Hypothyroidism Status: Chronic (6) Pacemaker (7) Chronic diastolic heart failure CULLEN TILLMAN DO Oct 30, 2021 06:42
[2021-10-30 07:24] VITALS: BP 124/56
[2021-10-30] MEDS: ASPIRIN E.C. 81 MG (ECOTRIN) TAB PO SCH (07:55)
[2021-10-30] MEDS: CEFDINIR 300 MG (OMNICEF) CAP PO SCH ×2 (07:56→20:37)
[2021-10-30] MEDS: meTOproloL SUCCINATE 50 MG (TOPROL XL) TAB PO SCH (07:56)
[2021-10-30] MEDS: SERTRALINE 100 MG (ZOLOFT) TAB PO SCH (07:57)
[2021-10-30] MEDS: ENOXAPARIN 60 MG/0.6 ML (LOVENOX) SYR SC SCH (07:58)
[2021-10-30] MEDS: polyethylene glycoL POWDER 17 GM (MIRALAX) PACK PO SCH ×2 (07:59→20:43)
[2021-10-30] MEDS: DOCUSATE SODIUM 100 MG (COLACE) CAP PO SCH ×2 (07:59→20:43)
[2021-10-30] MEDS: SENNA W/DOCUSATE (SENOKOT S) TABLET PO SCH ×2 (07:59→20:43)
--- NOTE | 2021-10-30 08:57 | Physical Therapy Daily Note ---
PT Daily Note-Current Subjective Pt. agrees to Rx, states she has had some discomfort in left calf but decreases with activity. Pt. suggests use of heat and cold intermittent. This CCIE declines and explains the contraindication for such along with nurse who is present. Pt. describes her home entry as 3 steps with rail as well as mini van car . Pain Numeric Pain Scale: 3 Location: Left Location Body Site: Calf Pain Description: Ache Appearance neg Homans sign Mental Status Patient Orientation: Normal For Age Transfers SCALE: Activities may be completed with or without assistive devices. 2-Jbvxmcujdw-kfmxcbu completes the activity by him/herself with no assistance from a helper. 5-Set-up or Clean-up Assistance-helper sets up or cleans up; patient completes activity. [place] assists only prior to or following the activity. 4-Supervision or Touching Assistance-helper provides verbal cues and/or touching/steadying and/or contact guard assistance as patient completes activity. Assistance may be provided throughout the activity or intermittently. 3-Partial/Moderate Assistance-helper does LESS THAN HALF the effort. [place] lifts, holds or supports trunk or limbs, but provides less than half the effort. 2-Substantial/Maximal Assistance-helper does MORE THAN HALF the effort. [place] lifts or holds trunk or limbs and provides more than half the effort. 6-Vlsbkiscd-fwliok does ALL the effort. Patient does none of the effort to complete the activity. Or, the assistance of 2 or more helpers is required for the patient to complete the activity. If activity was not attempted, code reason: 7-Patient Refused. 9-Not Applicable-not attempted and the patient did not perform the activity before the current illness, exacerbation or injury. 10-Not Attempted due to Environmental Limitations-(lack of equipment, weather restraints, etc.). 88-Not Attempted due to Medical Conditions or Safety Concerns. Roll Left & Right (QC): 6 Sit to Lying (QC): 5 Lying to Sitting/Side of Bed(Q: 5 Sit to Stand (QC): 5 Chair/Eoy-wu-Ssdlw Xfer(QC): 5 Toilet Transfer (QC): 5 sup to sit from flat bed surface to simulate pts home situation with pt requiring only instruction and technique Weight Bearing Left Lower Extremity: Left Weight Bearing/Tolerated Gait Training Does the Patient Walk?: Yes Walk 10 feet (QC): 5 Walk 50 ft with 2 Turns(QC): 5 Walk 150 ft (QC): 5 Gait Persons Needed: 1 Gait Assistive Device: FWW w/c to follow, pt. progressing well in dist and gait pattern with equal step length Exercises Supine Ex: Ankle pumps, Quad Set, Rolling, Heel Slides (using gait belt to self stretch in reclined position), Short Arc Quads, Scooting (up in bed indep), Straight leg raise (inep x 7) Supine Reps: 15 Seated Therapy Exercises: Ankle pumps, Sit to stand, Long arc quads Seated Reps: 15 NuStep Minutes: 10 NuStep Workload: 2 Treatments max assist to rebecca TEDs, Nustep emphasis on increased flexion, indep to toilet and clean and manage clothing, bed TRFs SBA only with instruction from flat bed, gait increased to 150 ft SBA with improved gait pattern , sup TKR protocol ex, folowed by polar pack Assessment Current Status: Good Progress increased TRF skills, increased gait dist and pattern , decreased pain c/o PT Short Term Goals Short Term Goals Time Frame: Oct 30, 2021 Roll Left & Right: 4 Sit to lyin Lying to sitting on side of be: 3 Sit to stand: 4 Chair/rey-bg-eqwwe transfer: 4 Walk 10 feet: 4 Walk 50 feet with two turns: 4 PT Commercial Lines Account Assistant Goals Commercial Lines Account Assistant Goals PT Commercial [employer] Account Assistant Goals Time Frame: Nov 13, 2021 Roll Left & Right (QC): 6 Sit to Lying (QC): 4 (SBA) Lying-Sitting on Side/Bed(QC): 4 (SBA) Sit to Stand (QC): 5 Chair/Qup-oy-Ptlzg Xfer(QC): 5 Toilet Transfer (QC): 5 Car Transfer (QC): 3 Does the Patient Walk: Yes Walk 10 feet (QC): 5 Walk 50ft with 2 Turns (QC): 5 Walk 150 ft (QC): 5 Walking 10ft on Uneven Surface: 4 1 Step (curb) (QC): 4 4 Steps (QC): 4 12 Steps (QC): 88 Picking up an Object (QC): 5 Wheel 50 feet with 2 turns (QC: 4 Wheel 150 feet: 4 PT Plan Treatment/Plan Treatment Plan: Continue Plan of Care Treatment Plan: Bed Mobility, Education, Functional Activity Shanice, Functional Strength, Group Therapy, Gait, Safety, Therapeutic Exercise, Transfers Treatment Duration: Nov 13, 2021 Frequency: At least 5 of 7 days/Wk (IRF) Estimated Hrs Per Day: 1.5 hours per day Patient and/or Family Agrees t: Yes Safety Risks/Education Patient Education: Gait Training, Transfer Techniques, Correct Positioning, Disease Process, Safety Issues Teaching Recipient: Patient Teaching Methods: Demonstration, Discussion Response to Teaching: Verbalize Understanding, Return Demonstration, Reinforcement Needed Time/GCodes Time In: 800 Time Out: 900 Total Billed Treatment Time: 60 Total Billed Treatment 1,EX30m,GT15m,FA15m MANOHAR SNOW CCIE Oct 30, 2021 08:57
--- NOTE | 2021-10-30 10:18 | Occupational Ther Daily Note ---
OT Current Status-Daily Note Subjective Pt in bed, agreeable to OT Tx. Rates pain 5/10 in L knee and calf Mental Status/Objective Patient Orientation: Normal For Age Attachments: Polar Pack ADL-Treatment Therapy Code Descriptions/Definitions Functional Rich Measure: 0=Not Assessed/NA 4=Minimal Assistance 1=Total Assistance 5=Supervision or Setup 2=Maximal Assistance 6=Modified Rich 3=Moderate Assistance 7=Complete IndependenceSCALE: Activities may be completed with or without assistive devices. 1-Nkbssuzgnu-cmxdmaw completes the activity by him/herself with no assistance from a helper. 5-Set-up or Clean-up Assistance-helper sets up or cleans up; patient completes activity. [place] assists only prior to or following the activity. 4-Supervision or Touching Assistance-helper provides verbal cues and/or touching/steadying and/or contact guard assistance as patient completes activity. Assistance may be provided throughout the activity or intermittently. 3-Partial/Moderate Assistance-helper does LESS THAN HALF the effort. [place] lifts, holds or supports trunk or limbs, but provides less than half the effort. 2-Substantial/Maximal Assistance-helper does MORE THAN HALF the effort. [place] lifts or holds trunk or limbs and provides more than half the effort. 2-Zhlukyqlv-yjhpms does ALL the effort. Patient does none of the effort to complete the activity. Or, the assistance of 2 or more helpers is required for the patient to complete the activity. If activity was not attempted, code reason: 7-Patient Refused. 9-Not Applicable-not attempted and the patient did not perform the activity before the current illness, exacerbation or injury. 10-Not Attempted due to Environmental Limitations-(lack of equipment, weather restraints, etc.). 88-Not Attempted due to Medical Conditions or Safety Concerns. Oral Hygiene (QC): 6 (IND standing at sink.) Shower/Bathe Self (QC): 3 (Min A with buttocks.) Upper Body Dressing (QC): 5 (set up with thread pulling machine attendant gown.) Lower Body Dressing (QC): 4 (SBA, pt able to use AE to thread pants) Toileting Hygiene (QC): 3 (Min A for thoroughness.) Toilet Transfer (QC): 4 (SBA) Other Treatment Pt in bed, transferred supine to sit EOB without assistance. Pt used FWW to transfer into bathroom and to w/c at sink. Pt completed sponge bath, then transferred to toilet to complete toileting and dressing. She stood at sink to complete oral care independently. Pt used FWW to perform functional mobility out of room and most of the way to the therapy gym, SBA. Pt sat in w/c, then taken in to the gym. OT tx with focus on increasing BUE strength and activity tolerance. Pt completed arm bike, x15 mins, 20 Watt resistance, no rest breaks. Pt then placed1" pegs from foam pegboard. Pt taken part way back to room, then used FWW to perform functional mobility the remainder of the way and transfer to bed. Sit to supine independently. OT placed Polar pack on back of L knee per pt request. Post tx, pt in bed, call light in reach and all needs met. Education OT Patient Education: Correct positioning, Energy conservation, Exercise program, Modified ADL techniques, Progress toward Goal/Update tx plan, Purpose of tx/functional activities, Rehab process Teaching Recipient: Patient Teaching Methods: Discussion Response to Teaching: Verbalize Understanding OT Short Term Goals Short Term Goals Time Frame: Nov 04, 2021 Shower/bathe self: 3 Lower body dressin Putting on/taking off footwear: 3 OT Nursing Home Goals Cap Maker Goals Time Frame: Nov 20, 2021 Eating (QC): 6 Oral Hygiene (QC): 6 Toileting Hygiene (QC): 6 Shower/Bathe Self (QC): 4 Upper Body Dressing (QC): 6 Lower Body Dressing (QC): 4 On/Off Footwear (QC): 4 Additional Goals: 1-Demonstrate ADL Tasks, 2-Verbalize Understanding, 3- ImproveStrength/Shanice 1=Demonstrate adherence to instructed precautions during ADL tasks. 2=Patient will verbalize/demonstrate understanding of assistive devices/modifications for ADL. 3=Patient will improve strength/tolerance for activity to enable patient to perform ADL's. OT Education/Plan Problem List/Assessment Assessment: Decreased Activ Tolerance, Decreased UE Strength, Impaired Funct Balance, Impaired I ADL's, Impaired Self-Care Skills Discharge Recommendations Plan/Recommendations: Continue POC Treatment Plan/Plan of Care Patient would benefit from OT for education, treatment and training to promote independence in ADL's, mobility, safety and/or upper extremity function for ADL's. Plan of Care: ADL Retraining, Functional Mobility, Group Exercise/Act as Ind, UE Funct Exercise/Act Treatment Duration: Nov 20, 2021 Frequency: At least 5 of 7 days/Wk (IRF) Estimated Hrs Per Day: 1.5 hours per day Rehab Potential: Fair Time/GCodes Start Time: 09:30 Stop Time: 11:00 Total Time Billed (hr/min): 90 Billed Treatment Time 1, ADL 2 (30'), EX (15'), FA 3 (45') SONYA PRESTON OT Oct 30, 2021 10:18
--- NOTE | 2021-10-30 11:31 | Physical Therapy Daily Note ---
PT Daily Note-Current Subjective Pt. c/o her pain level is escalating to approx 8/10 . Nursing is advised. Pt c/o swelling is greater in LLE today than yesterday. Pt. declines getting up in recliner stating it is not comfortable . This WAFER MOUNTER offering to demonstrate some little known techniques, pt. declines up in chair or walk to bthrm Pain Numeric Pain Scale: 8 Location: Left Location Body Site: Calf Pain Description: Ache Mental Status Patient Orientation: Normal For Age pt. with CPAP on when this WAFER MOUNTER entered room Transfers SCALE: Activities may be completed with or without assistive devices. 5-Otlbyqctcn-juowahg completes the activity by him/herself with no assistance from a helper. 5-Set-up or Clean-up Assistance-helper sets up or cleans up; patient completes activity. [place] assists only prior to or following the activity. 4-Supervision or Touching Assistance-helper provides verbal cues and/or touching/steadying and/or contact guard assistance as patient completes activity. Assistance may be provided throughout the activity or intermittently. 3-Partial/Moderate Assistance-helper does LESS THAN HALF the effort. [place] lifts, holds or supports trunk or limbs, but provides less than half the effort. 2-Substantial/Maximal Assistance-helper does MORE THAN HALF the effort. [place] lifts or holds trunk or limbs and provides more than half the effort. 0-Ptagigjgj-ssssks does ALL the effort. Patient does none of the effort to complete the activity. Or, the assistance of 2 or more helpers is required for the patient to complete the activity. If activity was not attempted, code reason: 7-Patient Refused. 9-Not Applicable-not attempted and the patient did not perform the activity before the current illness, exacerbation or injury. 10-Not Attempted due to Environmental Limitations-(lack of equipment, weather restraints, etc.). 88-Not Attempted due to Medical Conditions or Safety Concerns. Roll Left & Right (QC): 6 pt. pushes self up in bed using UEs and flexed RLE and rails Weight Bearing Left Lower Extremity: Left Weight Bearing/Tolerated Exercises Supine Ex: Bridging, Ankle pumps, Quad Set, Rolling, Glut sets, Heel Slides, Short Arc Quads, Scooting, Straight leg raise (indep x 12), Hip abd/add Supine Reps: 12 (x2) Treatments Nurse changes dressing during Rx, clean , min to no drainage, no alerting discoloration, renaldo intact, polar pack insitu after Tx Assessment Current Status: Good Progress PT Short Term Goals Short Term Goals Time Frame: Oct 30, 2021 Roll Left & Right: 4 Sit to lyin Lying to sitting on side of be: 3 Sit to stand: 4 Chair/dzz-ju-hkaju transfer: 4 Walk 10 feet: 4 Walk 50 feet with two turns: 4 PT Penitentiary Goals [facility]itentiary Goals PT Duct Layer Goals Time Frame: Nov 13, 2021 Roll Left & Right (QC): 6 Sit to Lying (QC): 4 (SBA) Lying-Sitting on Side/Bed(QC): 4 (SBA) Sit to Stand (QC): 5 Chair/Clx-hr-Wdnad Xfer(QC): 5 Toilet Transfer (QC): 5 Car Transfer (QC): 3 Does the Patient Walk: Yes Walk 10 feet (QC): 5 Walk 50ft with 2 Turns (QC): 5 Walk 150 ft (QC): 5 Walking 10ft on Uneven Surface: 4 1 Step (curb) (QC): 4 4 Steps (QC): 4 12 Steps (QC): 88 Picking up an Object (QC): 5 Wheel 50 feet with 2 turns (QC: 4 Wheel 150 feet: 4 PT Plan Treatment/Plan Treatment Plan: Continue Plan of Care Treatment Plan: Bed Mobility, Education, Functional Activity Shanice, Functional Strength, Group Therapy, Gait, Safety, Therapeutic Exercise, Transfers Treatment Duration: Nov 13, 2021 Frequency: At least 5 of 7 days/Wk (IRF) Estimated Hrs Per Day: 1.5 hours per day Patient and/or Family Agrees t: Yes Safety Risks/Education Patient Education: Correct Positioning, Safety Issues Teaching Recipient: Patient Teaching Methods: Demonstration, Discussion Response to Teaching: Verbalize Understanding, Return Demonstration, Reinforcement Needed Time/GCodes Time In: 1100 Time Out: 1130 Total Billed Treatment Time: 30 Total Billed Treatment 1,EX30m MANOHAR SNOW WAFER MOUNTER Oct 30, 2021 11:31
--- NOTE | 2021-10-30 13:25 | Diagnostic Imaging Report ---
PROCEDURE: US left lower extremity venous. TECHNIQUE: Multiple real-time grayscale images were obtained over the left lower extremity in various projections. Additional duplex Doppler and color Doppler images were also obtained. INDICATION: Left leg swelling. A left common femoral, superficial femoral and popliteal veins are widely patent showing normal compressibility and normal response to augmentation of Valsalva. There is thrombus identified in the peroneal veins of the calf. No fluid collection or mass is detected. IMPRESSION: 1. No evidence of femoropopliteal DVT. 2. Peroneal vein thrombosis in the calf. Dictated by: Dictated on workstation # [id number]
[2021-10-30] MEDS: RIVAROXABAN 15 MG TABLET (XARELTO) PO SCH ×2 (14:55→20:37)
[2021-10-30 19:58] VITALS: BP 129/63
[2021-10-31] MEDS: MULTIVIT W/MINERALS TAB (THERAGRAN M) PO SCH (06:16)
[2021-10-31] MEDS: LEVOTHYROXINE 100 MCG (LEVOTHROID) TAB PO SCH (06:16)
[2021-10-31] MEDS: RIVAROXABAN 15 MG TABLET (XARELTO) PO SCH ×2 (06:44→18:47)
--- NOTE | 2021-10-31 06:55 | PM&R Progress Note ---
Subjective HPI/CC On Admission Date Seen by Provider: Oct 31, 2021 Time Seen by Provider: 13:00 Subjective/Events-last exam 10/31/2021: Patient doing really well Bowels are moving UTI treatment tolerated well Eliquis maintained for acute DVT 10/30/2021: Pt doing about the same No falls Peroneal vein thrombosis noted on ultrasound Dr. Noriega ordered and she had been on Lovenox 60 mg twice daily so we will shift her to oral anticoagulation No significant changes 10/29/21: Patient doing much better Patient is pretty much behind her knee No dyspnea Tramadol helps the pain Bowels moved yesterday Tolerating antibiotic for UTI 10/28/2021: Pt is doing okay Urine culture shows E-Coli so will place on her Omnicef 300 BID Discharge planned for next Tuesday Bowels moved yesterday 10/27/21: Pt is doing really well A new CPAP was provided yesterday since hers broke UA shows no severe infection but will follow-up on urine culture No more incontinence Yellow drainage from the incision, Dr. Noriega is aware 10/26/2021: Patient doing well In and out cath for UA will be performed due to UTI symptoms Cipro was completed prior to surgery Platelet count of 99,000 Patient told me she sees a call center supervisor up at [facility] for cirrhosis from [facility] Ultrasound that was ordered was canceled due to work-up already completed for liver 10/25/2021: Tramadol working very well for her Hydrocodone for severe pain Family at bedside Incontinence is improved Checked meds and labs 10/24/2021: Patient doing really well Working hard Percocet is too much for her so we will start hydrocodone and tramadol Remains on 2 L at night since her CPAP broke Incontinence noted Bowels are moving Review of Systems General: Fatigue, Malaise Musculoskeletal: leg pain Objective Exam Vital Signs Vital Signs Date Time Temp Pulse Resp B/P (MAP) Pulse Ox O2 Delivery O2 Flow Rate FiO2 10/31/21 20:30 97 Room Air 10/31/21 19:45 37.2 64 18 118/58 (78) Capillary Refill : General Appearance: No Apparent Distress, WD/WN, Chronically ill, Obese HEENT: PERRL/EOMI, Normal ENT Inspection, Pharynx Normal Neck: Full Range of Motion, Normal Inspection, Non Tender, Supple, Carotid Bruit Respiratory: Chest Non Tender, Lungs Clear, Normal Breath Sounds, No Accessory Muscle Use, No Respiratory Distress Cardiovascular: Regular Rate, Rhythm, No Edema, No Gallop, No JVD, No Murmur, Normal Peripheral Pulses Gastrointestinal: Normal Bowel Sounds, No Organomegaly, No Pulsatile Mass, Non Tender, Soft Back: Normal Inspection, No CVA Tenderness, No Vertebral Tenderness Extremity: Normal Capillary Refill, Normal Inspection, Normal Range of Motion (Except left leg), Non Tender, No Calf Tenderness, No Pedal Edema Neurologic/Psychiatric: Alert, Oriented x3, No Motor/Sensory Deficits, Normal Mood/Affect, Abnormal Gait, Motor Weakness (Left leg) Skin: Normal Color, Warm/Dry Lymphatic: No Adenopathy Results/Procedures Lab Patient resulted labs reviewed. FIM Transfers Therapy Code Descriptions/Definitions Functional [place] Measure: 0=Not Assessed/NA 4=Minimal Assistance 1=Total Assistance 5=Supervision or Setup 2=Maximal Assistance 6=Modified [place] 3=Moderate Assistance 7=Complete IndependenceSCALE: Activities may be completed with or without assistive devices. 9-Bgnrwrqafn-nnuivrm completes the activity by him/herself with no assistance from a helper. 5-Set-up or Clean-up Assistance-helper sets up or cleans up; patient completes activity. [place] assists only prior to or following the activity. 4-Supervision or Touching Assistance-helper provides verbal cues and/or touching/steadying and/or contact guard assistance as patient completes activity. Assistance may be provided throughout the activity or intermittently. 3-Partial/Moderate Assistance-helper does LESS THAN HALF the effort. [place] lifts, holds or supports trunk or limbs, but provides less than half the effort. 2-Substantial/Maximal Assistance-helper does MORE THAN HALF the effort. [place] lifts or holds trunk or limbs and provides more than half the effort. 7-Zwdgtpdbc-rqwqnc does ALL the effort. Patient does none of the effort to complete the activity. Or, the assistance of 2 or more helpers is required for the patient to complete the activity. If activity was not attempted, code reason: 7-Patient Refused. 9-Not Applicable-not attempted and the patient did not perform the activity before the current illness, exacerbation or injury. 10-Not Attempted due to Environmental Limitations-(lack of equipment, weather restraints, etc.). 88-Not Attempted due to Medical Conditions or Safety Concerns. Roll Left to Right (QC): 6 Sit to Lying (QC): 5 Sit to Stand (QC): 5 Chair/Iuk-my-Rrbns Xfer(QC): 5 Car Transfer (QC): 88 Gait Training Does the Patient Walk?: Yes Distance: 40, 50, 90 feet Walk 10 feet (QC): 5 Walk 50 ft with 2 Turns(QC): 5 Walk 150 ft (QC): 5 Walking 10ft/uneven surface-QC: 88 Gait Persons Needed: 1 Gait Assistive Device: FWW Wheelchair Training Does the Pt Use a Wheelchair?: Yes Distance: 50' Wheel 50 ft with 2 turns (QC): 4 Wheel 150 ft (QC): 88 Type of Wheelchair: Manual Stair Training 1 Step (curb) (QC): 88 4 Steps (QC): 88 12 Steps (QC): 88 Balance Picking up an Object (QC): 88 ADL-Treatment Eating (QC): 6 (Per pt report,) Oral Hygiene (QC): 6 (IND standing at sink.) Bathing Location: L Arm, R Arm, L Upper Leg, R Upper Leg, L Lower Leg (including foot), R Lower Leg (including foot), Chest, Abdomen, Buttocks, Perineal Area Shower/Bathe Self (QC): 3 (Min A with buttocks.) Upper Body Dressing (QC): 5 (set up with gut puller gown.) Lower Body Dressing (QC): 4 (SBA, pt able to use AE to thread pants) On/Off Footwear (QC): 2 ( max A needed to don socks. Total assist with TEDhose.) Toileting Hygiene (QC): 3 (Min A for thoroughness.) Toilet Transfer (QC): 4 (SBA) Assessment/Plan Assessment and Plan Assess & Plan/Chief Complaint Assessment: Status post left total knee replacement postop day #6 Super morbid obesity Diabetes Hypertension NGUYEN on CPAP Hyperlipidemia Hypothyroidism Pacemaker Cirrhosis from [facility] Thrombocytopenia from cirrhosis UTI E. coli placed on Omnicef 10/28/2021 Left peroneal thrombosis failed Lovenox 60 mg twice daily so started Eliquis acute thrombosis dose Plan: Home meds Pain control Bowel regimen Rehab protocol 10/24/2021: Pain control DC Percocet and start Ultram and hydrocodone Continue aggressive rehab 10/25/2021: Continue aggressive rehab Ultram working very well for her 10/26/2021: Check UA Continue aggressive therapy 10/27/21: Monitor incision 10/28/2021: UTI treatment Aggressive rehab DC 11/06/2021 10/29/2021: Supportive care UTI treatment 10/30/2021: Start Eliquis for thrombosis Continue UTI treatment 10/31/2021: Eliquis Omnicef (1) Status post left knee replacement (2) Non-insulin dependent type 2 diabetes mellitus Status: Chronic (3) HTN (hypertension) Status: Chronic (4) NGUYEN (obstructive sleep apnea) Status: Chronic (5) Hypothyroidism Status: Chronic (6) Pacemaker (7) Chronic diastolic heart failure CULLEN TILLMAN DO Oct 31, 2021 06:55
[2021-10-31 07:45] VITALS: BP 175/77
[2021-10-31] MEDS: polyethylene glycoL POWDER 17 GM (MIRALAX) PACK PO SCH ×2 (07:56→20:29)
[2021-10-31] MEDS: SERTRALINE 100 MG (ZOLOFT) TAB PO SCH (08:03)
[2021-10-31] MEDS: CEFDINIR 300 MG (OMNICEF) CAP PO SCH ×2 (08:03→20:26)
[2021-10-31] MEDS: DOCUSATE SODIUM 100 MG (COLACE) CAP PO SCH ×2 (08:03→20:26)
[2021-10-31] MEDS: ASPIRIN E.C. 81 MG (ECOTRIN) TAB PO SCH (08:03)
[2021-10-31] MEDS: meTOproloL SUCCINATE 50 MG (TOPROL XL) TAB PO SCH (08:03)
[2021-10-31] MEDS: SENNA W/DOCUSATE (SENOKOT S) TABLET PO SCH ×2 (08:04→20:29)
--- NOTE | 2021-10-31 08:26 | Physical Therapy Daily Note ---
PT Daily Note-Current Subjective Pt upon arrival in recliner and agrees to tx. Pt has no report of pain at this time, states "I'm feeling much better today." Mental Status Patient Orientation: Person, Place, Time, Situation Transfers SCALE: Activities may be completed with or without assistive devices. 1-Kbtvkvainz-jvpmhjz completes the activity by him/herself with no assistance from a helper. 5-Set-up or Clean-up Assistance-helper sets up or cleans up; patient completes activity. [place] assists only prior to or following the activity. 4-Supervision or Touching Assistance-helper provides verbal cues and/or touching/steadying and/or contact guard assistance as patient completes activity. Assistance may be provided throughout the activity or intermittently. 3-Partial/Moderate Assistance-helper does LESS THAN HALF the effort. [place] lifts, holds or supports trunk or limbs, but provides less than half the effort. 2-Substantial/Maximal Assistance-helper does MORE THAN HALF the effort. [place] lifts or holds trunk or limbs and provides more than half the effort. 7-Iasysnxyu-smgxvz does ALL the effort. Patient does none of the effort to complete the activity. Or, the assistance of 2 or more helpers is required for the patient to complete the activity. If activity was not attempted, code reason: 7-Patient Refused. 9-Not Applicable-not attempted and the patient did not perform the activity before the current illness, exacerbation or injury. 10-Not Attempted due to Environmental Limitations-(lack of equipment, weather restraints, etc.). 88-Not Attempted due to Medical Conditions or Safety Concerns. Sit to Lying (QC): 5 Sit to Stand (QC): 4 Weight Bearing Left Lower Extremity: Left Weight Bearing/Tolerated Gait Training Does the Patient Walk?: Yes Distance: 225' Walk 10 feet (QC): 4 Walk 50 ft with 2 Turns(QC): 4 Walk 150 ft (QC): 4 Gait Persons Needed: 1 Gait Assistive Device: FWW Slow antalgic gait with VC for upright posture Treatments Pt ambulate from recliner to bathroom, required A donning pants post toilet use. Amb 225' in halls and returns to bed in room, supine to sit SBA. Pt left with all needs met, call light in hand Assessment Current Status: Good Progress Pt required multiple standing rest breaks during ambulation PT Short Term Goals Short Term Goals Time Frame: Oct 30, 2021 Roll Left & Right: 4 Sit to lyin Lying to sitting on side of be: 3 Sit to stand: 4 Chair/wpp-ob-qgrsi transfer: 4 Walk 10 feet: 4 Walk 50 feet with two turns: 4 PT Customer Service Officer Goals Customer Service Officer Goals PT [facility] Goals Time Frame: Nov 13, 2021 Roll Left & Right (QC): 6 Sit to Lying (QC): 4 (SBA) Lying-Sitting on Side/Bed(QC): 4 (SBA) Sit to Stand (QC): 5 Chair/Xbu-wh-Xjezg Xfer(QC): 5 Toilet Transfer (QC): 5 Car Transfer (QC): 3 Does the Patient Walk: Yes Walk 10 feet (QC): 5 Walk 50ft with 2 Turns (QC): 5 Walk 150 ft (QC): 5 Walking 10ft on Uneven Surface: 4 1 Step (curb) (QC): 4 4 Steps (QC): 4 12 Steps (QC): 88 Picking up an Object (QC): 5 Wheel 50 feet with 2 turns (QC: 4 Wheel 150 feet: 4 PT Plan Treatment/Plan Treatment Plan: Continue Plan of Care Treatment Plan: Bed Mobility, Education, Functional Activity [place], Functional Strength, Group Therapy, Gait, Safety, Therapeutic Exercise, Transfers Treatment Duration: Nov 13, 2021 Frequency: At least 5 of 7 days/Wk (IRF) Estimated Hrs Per Day: 1.5 hours per day Patient and/or Family Agrees t: Yes Safety Risks/Education Patient Education: Gait Training Teaching Recipient: Patient Teaching Methods: Discussion Response to Teaching: Verbalize Understanding Time/GCodes Time In: 805 Time Out: 822 Total Billed Treatment Time: 17 Total Billed Treatment 1, GT DESIREEBRE SPECIAL EQUIPMENT TECHNICIAN Oct 31, 2021 08:26
[2021-10-31 19:45] VITALS: BP 118/58
[2021-11-01] MEDS: MULTIVIT W/MINERALS TAB (THERAGRAN M) PO SCH (06:32)
[2021-11-01] MEDS: LEVOTHYROXINE 100 MCG (LEVOTHROID) TAB PO SCH (06:32)
[2021-11-01] MEDS: RIVAROXABAN 15 MG TABLET (XARELTO) PO SCH ×2 (06:32→18:13)
--- NOTE | 2021-11-01 07:06 | PM&R Progress Note ---
Subjective HPI/CC On Admission Date Seen by Provider: Nov 01, 2021 Time Seen by Provider: 13:00 Subjective/Events-last exam 11/01/2021: Supportive care continues Pain improved Family at bedside Bowels are moving Tolerating Eliquis 10/31/2021: Patient doing really well Bowels are moving UTI treatment tolerated well Eliquis maintained for acute DVT 10/30/2021: Pt doing about the same No falls Peroneal vein thrombosis noted on ultrasound Dr. Noriega ordered and she had been on Lovenox 60 mg twice daily so we will shift her to oral anticoagulation No significant changes 10/29/21: Patient doing much better Patient is pretty much behind her knee No dyspnea Tramadol helps the pain Bowels moved yesterday Tolerating antibiotic for UTI 10/28/2021: Pt is doing okay Urine culture shows E-Coli so will place on her Omnicef 300 BID Discharge planned for next Tuesday Bowels moved yesterday 10/27/21: Pt is doing really well A new CPAP was provided yesterday since hers broke UA shows no severe infection but will follow-up on urine culture No more incontinence Yellow drainage from the incision, Dr. Noriega is aware 10/26/2021: Patient doing well In and out cath for UA will be performed due to UTI symptoms Cipro was completed prior to surgery Platelet count of 99,000 Patient told me she sees a chemical engineering technologist up at for cirrhosis from [facility] Ultrasound that was ordered was canceled due to work-up already completed for liver 10/25/2021: Tramadol working very well for her Hydrocodone for severe pain Family at bedside Incontinence is improved Checked meds and labs 10/24/2021: Patient doing really well Working hard Percocet is too much for her so we will start hydrocodone and tramadol Remains on 2 L at night since her CPAP broke Incontinence noted Bowels are moving Review of Systems General: Fatigue, Malaise Musculoskeletal: leg pain Objective Exam Vital Signs Vital Signs Date Time Temp Pulse Resp B/P (MAP) Pulse Ox O2 Delivery O2 Flow Rate FiO2 11/01/21 20:45 98 Room Air 11/01/21 19:30 37.4 63 18 143/65 (91) Capillary Refill : General Appearance: No Apparent Distress, WD/WN, Chronically ill, Obese HEENT: PERRL/EOMI, Normal ENT Inspection, Pharynx Normal Neck: Full Range of Motion, Normal Inspection, Non Tender, Supple, Carotid Bruit Respiratory: Chest Non Tender, Lungs Clear, Normal Breath Sounds, No Accessory Muscle Use, No Respiratory Distress Cardiovascular: Regular Rate, Rhythm, No Edema, No Gallop, No JVD, No Murmur, Normal Peripheral Pulses Gastrointestinal: Normal Bowel Sounds, No Organomegaly, No Pulsatile Mass, Non Tender, Soft Back: Normal Inspection, No CVA Tenderness, No Vertebral Tenderness Extremity: Normal Capillary Refill, Normal Inspection, Normal Range of Motion (Except left leg), Non Tender, No Calf Tenderness, No Pedal Edema Neurologic/Psychiatric: Alert, Oriented x3, No Motor/Sensory Deficits, Normal Mood/Affect, Abnormal Gait, Motor Weakness (Left leg) Skin: Normal Color, Warm/Dry Lymphatic: No Adenopathy Results/Procedures Lab Patient resulted labs reviewed. FIM Transfers Therapy Code Descriptions/Definitions Functional [place] Measure: 0=Not Assessed/NA 4=Minimal Assistance 1=Total Assistance 5=Supervision or Setup 2=Maximal Assistance 6=Modified [place] 3=Moderate Assistance 7=Complete IndependenceSCALE: Activities may be completed with or without assistive devices. 3-Mvisgidmdg-demnnnu completes the activity by him/herself with no assistance from a helper. 5-Set-up or Clean-up Assistance-helper sets up or cleans up; patient completes activity. [place] assists only prior to or following the activity. 4-Supervision or Touching Assistance-helper provides verbal cues and/or touching/steadying and/or contact guard assistance as patient completes ac tivity. Assistance may be provided throughout the activity or intermittently. 3-Partial/Moderate Assistance-helper does LESS THAN HALF the effort. [place] lifts, holds or supports trunk or limbs, but provides less than half the effort. 2-Substantial/Maximal Assistance-helper does MORE THAN HALF the effort. [place] lifts or holds trunk or limbs and provides more than half the effort. 8-Goenqdhii-htinhg does ALL the effort. Patient does none of the effort to complete the activity. Or, the assistance of 2 or more helpers is required for the patient to complete the activity. If activity was not attempted, code reason: 7-Patient Refused. 9-Not Applicable-not attempted and the patient did not perform the activity before the current illness, exacerbation or injury. 10-Not Attempted due to Environmental Limitations-(lack of equipment, weather restraints, etc.). 88-Not Attempted due to Medical Conditions or Safety Concerns. Roll Left to Right (QC): 6 Sit to Lying (QC): 5 Sit to Stand (QC): 4 Chair/Uhu-wk-Qlisx Xfer(QC): 5 Car Transfer (QC): 88 Gait Training Does the Patient Walk?: Yes Distance: 225' Walk 10 feet (QC): 4 Walk 50 ft with 2 Turns(QC): 4 Walk 150 ft (QC): 4 Walking 10ft/uneven surface-QC: 88 Gait Persons Needed: 1 Gait Assistive Device: FWW Wheelchair Training Does the Pt Use a Wheelchair?: Yes Distance: 50' Wheel 50 ft with 2 turns (QC): 4 Wheel 150 ft (QC): 88 Type of Wheelchair: Manual Stair Training 1 Step (curb) (QC): 88 4 Steps (QC): 88 12 Steps (QC): 88 Balance Picking up an Object (QC): 88 ADL-Treatment Eating (QC): 6 (Per pt report,) Oral Hygiene (QC): 6 (IND standing at sink.) Bathing Location: L Arm, R Arm, L Upper Leg, R Upper Leg, L Lower Leg (including foot), R Lower Leg (including foot), Chest, Abdomen, Buttocks, Perineal Area Shower/Bathe Self (QC): 3 (Min A with buttocks.) Upper Body Dressing (QC): 5 (set up with tree puller gown.) Lower Body Dressing (QC): 4 (SBA, pt able to use AE to thread pants) On/Off Footwear (QC): 2 ( max A needed to don socks. Total assist with TEDhose.) Toileting Hygiene (QC): 3 (Min A for thoroughness.) Toilet Transfer (QC): 4 (SBA) Assessment/Plan Assessment and Plan Assess & Plan/Chief Complaint Assessment: Status post left total knee replacement postop day #7 Super morbid obesity Diabetes Hypertension NGUYEN on CPAP Hyperlipidemia Hypothyroidism Pacemaker Cirrhosis from [facility] Thrombocytopenia from cirrhosis UTI E. coli placed on Omnicef 10/28/2021 Left peroneal thrombosis failed Lovenox 60 mg twice daily so started Eliquis acute thrombosis dose Plan: Home meds Pain control Bowel regimen Rehab protocol 10/24/2021: Pain control DC Percocet and start Ultram and hydrocodone Continue aggressive rehab 10/25/2021: Continue aggressive rehab Ultram working very well for her 10/26/2021: Check UA Continue aggressive therapy 10/27/21: Monitor incision 10/28/2021: UTI treatment Aggressive rehab DC 11/06/2021 10/29/2021: Supportive care UTI treatment 10/30/2021: Start Eliquis for thrombosis Continue UTI treatment 10/31/2021: Eliquis Omnicef 11/01/2021: Complete UTI treatment Eliquis (1) Status post left knee replacement (2) Non-insulin dependent type 2 diabetes mellitus Status: Chronic (3) HTN (hypertension) Status: Chronic (4) NGUYEN (obstructive sleep apnea) Status: Chronic (5) Hypothyroidism Status: Chronic (6) Pacemaker (7) Chronic diastolic heart failure CULLEN TILLMAN DO Nov 01, 2021 07:06
[2021-11-01] MEDS: CEFDINIR 300 MG (OMNICEF) CAP PO SCH ×2 (08:03→20:41)
[2021-11-01] MEDS: SENNA W/DOCUSATE (SENOKOT S) TABLET PO SCH ×2 (08:03→20:50)
[2021-11-01] MEDS: meTOproloL SUCCINATE 50 MG (TOPROL XL) TAB PO SCH (08:03)
[2021-11-01] MEDS: DOCUSATE SODIUM 100 MG (COLACE) CAP PO SCH ×2 (08:03→20:50)
[2021-11-01] MEDS: ASPIRIN E.C. 81 MG (ECOTRIN) TAB PO SCH (08:03)
[2021-11-01] MEDS: SERTRALINE 100 MG (ZOLOFT) TAB PO SCH (08:03)
[2021-11-01] MEDS: polyethylene glycoL POWDER 17 GM (MIRALAX) PACK PO SCH ×2 (08:04→20:50)
[2021-11-01 08:13] VITALS: BP 112/56
[2021-11-01 19:30] VITALS: BP 143/65
--- NOTE | 2021-11-02 05:39 | PM&R Progress Note ---
Subjective HPI/CC On Admission Date Seen by Provider: Nov 02, 2021 Time Seen by Provider: 09:00 Subjective/Events-last exam 11/02/2021: Pt is doing well Overall feels like she is improving Pain is much improved Maintain on Eliquis 11/01/2021: Supportive care continues Pain improved Family at bedside Bowels are moving Tolerating Eliquis 10/31/2021: Patient doing really well Bowels are moving UTI treatment tolerated well Eliquis maintained for acute DVT 10/30/2021: Pt doing about the same No falls Peroneal vein thrombosis noted on ultrasound Dr. Noriega ordered and she had been on Lovenox 60 mg twice daily so we will shift her to oral anticoagulation No significant changes 10/29/21: Patient doing much better Patient is pretty much behind her knee No dyspnea Tramadol helps the pain Bowels moved yesterday Tolerating antibiotic for UTI 10/28/2021: Pt is doing okay Urine culture shows E-Coli so will place on her Omnicef 300 BID Discharge planned for next Tuesday Bowels moved yesterday 10/27/21: Pt is doing really well A new CPAP was provided yesterday since hers broke UA shows no severe infection but will follow-up on urine culture No more incontinence Yellow drainage from the incision, Dr. Noriega is aware 10/26/2021: Patient doing well In and out cath for UA will be performed due to UTI symptoms Cipro was completed prior to surgery Platelet count of 99,000 Patient told me she sees a director of conservation up at for cirrhosis from [place] Ultrasound that was ordered was canceled due to work-up already completed for liver 10/25/2021: Tramadol working very well for her Hydrocodone for severe pain Family at bedside Incontinence is improved Checked meds and labs 10/24/2021: Patient doing really well Working hard Percocet is too much for her so we will start hydrocodone and tramadol Remains on 2 L at night since her CPAP broke Incontinence noted Bowels are moving Review of Systems General: Fatigue Musculoskeletal: leg pain Objective Exam Vital Signs Vital Signs Date Time Temp Pulse Resp B/P (MAP) Pulse Ox O2 Delivery O2 Flow Rate FiO2 11/02/21 20:10 Room Air 11/02/21 19:51 37.4 65 20 146/60 (88) 96 Capillary Refill : General Appearance: No Apparent Distress, WD/WN, Chronically ill, Obese HEENT: PERRL/EOMI, Normal ENT Inspection, Pharynx Normal Neck: Full Range of Motion, Normal Inspection, Non Tender, Supple, Carotid Bruit Respiratory: Chest Non Tender, Lungs Clear, Normal Breath Sounds, No Accessory Muscle Use, No Respiratory Distress Cardiovascular: Regular Rate, Rhythm, No Edema, No Gallop, No JVD, No Murmur, Normal Peripheral Pulses Gastrointestinal: Normal Bowel Sounds, No Organomegaly, No Pulsatile Mass, Non Tender, Soft Back: Normal Inspection, No CVA Tenderness, No Vertebral Tenderness Extremity: Normal Capillary Refill, Normal Inspection, Normal Range of Motion (Except left leg), Non Tender, No Calf Tenderness, No Pedal Edema Neurologic/Psychiatric: Alert, Oriented x3, No Motor/Sensory Deficits, Normal Mood/Affect, Abnormal Gait, Motor Weakness (Left leg) Skin: Normal Color, Warm/Dry Lymphatic: No Adenopathy Results/Procedures Lab Laboratory Tests 11/02/21 07:09 Patient resulted labs reviewed. FIM Transfers Therapy Code Descriptions/Definitions Functional [place] Measure: 0=Not Assessed/NA 4=Minimal Assistance 1=Total Assistance 5=Supervision or Setup 2=Maximal Assistance 6=Modified [place] 3=Moderate Assistance 7=Complete IndependenceSCALE: Activities may be completed with or without assistive devices. 0-Xnrjwgvyhv-ydzdava completes the activity by him/herself with no assistance from a helper. 5-Set-up or Clean-up Assistance-helper sets up or cleans up; patient completes activity. [place] assists only prior to or following the activity. 4-Supervision or Touching Assistance-helper provides verbal cues and/or touching/steadying and/or contact guard assistance as patient completes activity. Assistance may be provided throughout the activity or intermittently. 3-Partial/Moderate Assistance-helper does LESS THAN HALF the effort. [place] lifts, holds or supports trunk or limbs, but provides less than half the effort. 2-Substantial/Maximal Assistance-helper does MORE THAN HALF the effort. [place] lifts or holds trunk or limbs and provides more than half the effort. 3-Zqwrchkbk-bitscy does ALL the effort. Patient does none of the effort to complete the activity. Or, the assistance of 2 or more helpers is required for the patient to complete the activity. If activity was not attempted, code reason: 7-Patient Refused. 9-Not Applicable-not attempted and the patient did not perform the activity before the current illness, exacerbation or injury. 10-Not Attempted due to Environmental Limitations-(lack of equipment, weather restraints, etc.). 88-Not Attempted due to Medical Conditions or Safety Concerns. Roll Left to Right (QC): 6 Sit to Lying (QC): 5 Sit to Stand (QC): 4 Chair/Gtu-zi-Gdpvw Xfer(QC): 5 Car Transfer (QC): 88 Gait Training Does the Patient Walk?: Yes Distance: 225' Walk 10 feet (QC): 4 Walk 50 ft with 2 Turns(QC): 4 Walk 150 ft (QC): 4 Walking 10ft/uneven surface-QC: 88 Gait Persons Needed: 1 Gait Assistive Device: FWW Wheelchair Training Does the Pt Use a Wheelchair?: Yes Distance: 50' Wheel 50 ft with 2 turns (QC): 4 Wheel 150 ft (QC): 88 Type of Wheelchair: Manual Stair Training 1 Step (curb) (QC): 88 4 Steps (QC): 88 12 Steps (QC): 88 Balance Picking up an Object (QC): 88 ADL-Treatment Eating (QC): 6 (Per pt report,) Oral Hygiene (QC): 6 (IND standing at sink.) Bathing Location: L Arm, R Arm, L Upper Leg, R Upper Leg, L Lower Leg (includ ing foot), R Lower Leg (including foot), Chest, Abdomen, Buttocks, Perineal Area Shower/Bathe Self (QC): 3 (Min A with buttocks.) Upper Body Dressing (QC): 5 (set up with cotton puller gown.) Lower Body Dressing (QC): 4 (SBA, pt able to use AE to thread pants) On/Off Footwear (QC): 2 ( max A needed to don socks. Total assist with TEDhose.) Toileting Hygiene (QC): 3 (Min A for thoroughness.) Toilet Transfer (QC): 4 (SBA) Assessment/Plan Assessment and Plan Assess & Plan/Chief Complaint Assessment: Status post left total knee replacement postop day #7 Super morbid obesity Diabetes Hypertension NGUYEN on CPAP Hyperlipidemia Hypothyroidism Pacemaker Cirrhosis from [place] Thrombocytopenia from cirrhosis UTI E. coli placed on Omnicef 10/28/2021 Left peroneal thrombosis failed Lovenox 60 mg twice daily so started Eliquis acute thrombosis dose Plan: Home meds Pain control Bowel regimen Rehab protocol 10/24/2021: Pain control DC Percocet and start Ultram and hydrocodone Continue aggressive rehab 10/25/2021: Continue aggressive rehab Ultram working very well for her 10/26/2021: Check UA Continue aggressive therapy 10/27/21: Monitor incision 10/28/2021: UTI treatment Aggressive rehab DC 11/06/2021 10/29/2021: Supportive care UTI treatment 10/30/2021: Start Eliquis for thrombosis Continue UTI treatment 10/31/2021: Eliquis Omnicef 11/01/2021: Complete UTI treatment Eliquis 11/02/2021: Supportive care Discharge Tuesday (1) Status post left knee replacement (2) Non-insulin dependent type 2 diabetes mellitus Status: Chronic (3) HTN (hypertension) Status: Chronic (4) NGUYEN (obstructive sleep apnea) Status: Chronic (5) Hypothyroidism Status: Chronic (6) Pacemaker (7) Chronic diastolic heart failure CULLEN TILLMAN DO Nov 02, 2021 05:39
[2021-11-02] MEDS: LEVOTHYROXINE 100 MCG (LEVOTHROID) TAB PO SCH (06:10)
[2021-11-02] MEDS: MULTIVIT W/MINERALS TAB (THERAGRAN M) PO SCH (06:10)
[2021-11-02] MEDS: RIVAROXABAN 15 MG TABLET (XARELTO) PO SCH ×2 (06:11→18:23)
[2021-11-02 07:28] LABS: BASOPHILS % (AUTO) 0 % (0-10); EOSINOPHILS # (AUTO) 0.2 10^3/uL (0.0-0.3); EOSINOPHILS % (AUTO) 4 % (0-10); HEMATOCRIT 34 % (35-52); HEMOGLOBIN 10.6 g/dL (11.5-16.0); LYMPHOCYTES # (AUTO) 1.1 10^3/uL (1.0-4.0); LYMPHOCYTES % (AUTO) 19 % (12-44); MEAN CORPUSCULAR HEMOGLOBIN 35 pg (25-34); MEAN CORPUSCULAR HGB CONC 31 g/dL (32-36); MEAN CORPUSCULAR VOLUME 112 fL (80-99); MEAN PLATELET VOLUME 10.3 fL (9.0-12.2); MONOCYTES # (AUTO) 0.5 10^3/uL (0.0-1.0); MONOCYTES % (AUTO) 9 % (0-12); NEUTROPHILS # (AUTO) 3.7 10^3/uL (1.8-7.8); NEUTROPHILS % (AUTO) 67 % (42-75); PLATELET COUNT 117 10^3/uL (130-400); WHITE BLOOD COUNT 5.5 10^3/uL (4.3-11.0)
[2021-11-02 07:43] VITALS: BP 111/55
[2021-11-02 07:50] LABS: ALBUMIN 2.8 GM/DL (3.2-4.5); BILIRUBIN,TOTAL 3.3 MG/DL (0.1-1.0); CALCIUM 9.7 MG/DL (8.5-10.1); CREATININE SERUM 0.72 MG/DL (0.60-1.30); POTASSIUM 4.2 MMOL/L (3.6-5.0); TOTAL PROTEIN 5.4 GM/DL (6.4-8.2)
--- NOTE | 2021-11-02 08:58 | Physical Therapy Daily Note ---
PT Daily Note-Current Subjective Pt. in bed, states her left knee is stiff but ok, feeling positive and plans on Tuesday. Pain Location: No Pain Reported Mental Status Patient Orientation: Normal For Age Transfers SCALE: Activities may be completed with or without assistive devices. 5-Pdwxqmvzas-euandhg completes the activity by him/herself with no assistance from a helper. 5-Set-up or Clean-up Assistance-helper sets up or cleans up; patient completes activity. [place] assists only prior to or following the activity. 4-Supervision or Touching Assistance-helper provides verbal cues and/or touching/steadying and/or contact guard assistance as patient completes activity. Assistance may be provided throughout the activity or intermittently. 3-Partial/Moderate Assistance-helper does LESS THAN HALF the effort. [place] lifts, holds or supports trunk or limbs, but provides less than half the effort. 2-Substantial/Maximal Assistance-helper does MORE THAN HALF the effort. [place] lifts or holds trunk or limbs and provides more than half the effort. 4-Zfmxqnoto-kgwxop does ALL the effort. Patient does none of the effort to complete the activity. Or, the assistance of 2 or more helpers is required for the patient to complete the activity. If activity was not attempted, code reason: 7-Patient Refused. 9-Not Applicable-not attempted and the patient did not perform the activity before the current illness, exacerbation or injury. 10-Not Attempted due to Environmental Limitations-(lack of equipment, weather restraints, etc.). 88-Not Attempted due to Medical Conditions or Safety Concerns. Roll Left & Right (QC): 6 Sit to Lying (QC): 6 Lying to Sitting/Side of Bed(Q: 6 Sit to Stand (QC): 6 Chair/Qko-dj-Brbvj Xfer(QC): 6 Toilet Transfer (QC): 6 pt. declined car TRF after watching this [employer] demo. Pt. feels certain she can get in out her own car but not this small space of this simulator Weight Bearing Left Lower Extremity: Left Weight Bearing/Tolerated Gait Training Does the Patient Walk?: Yes Walk 10 feet (QC): 6 Walk 50 ft with 2 Turns(QC): 6 Walk 150 ft (QC): 6 Gait Persons Needed: 1 Gait Assistive Device: FWW no LOB, CGA to SBA, less fatigue than last week Wheelchair Training Does the Pt Use a Wheelchair?: No Stair Training Stair Training: Handrails/: 2 handrails #of Steps: 4 4 Steps (QC): 4 12 Steps (QC): 7 Stairs: Pattern: Step to safe use of rails and good sequence awareness. Exercises Supine Ex: Ankle pumps, Quad Set, Rolling, Glut sets, Heel Slides, Short Arc Quads, Scooting, Straight leg raise (indep), Hip abd/add Supine Reps: 15 Seated Therapy Exercises: Ankle pumps, Sit to stand, Long arc quads Seated Reps: 15 NuStep Minutes: 10 NuStep Workload: 3 Treatments sup and sit ex, nustep, steps, gait, TRFs, Assessment Current Status: Good Progress PT Short Term Goals Short Term Goals Time Frame: Oct 30, 2021 Roll Left & Right: 4 Sit to lyin Lying to sitting on side of be: 3 Sit to stand: 4 Chair/ooc-oh-ykbdq transfer: 4 Walk 10 feet: 4 Walk 50 feet with two turns: 4 PT Fpc Goals Fpc Goals PT Briefcase Sewer Goals Time Frame: Nov 13, 2021 Roll Left & Right (QC): 6 Sit to Lying (QC): 4 (SBA) Lying-Sitting on Side/Bed(QC): 4 (SBA) Sit to Stand (QC): 5 Chair/Hpg-gr-Hfzdf Xfer(QC): 5 Toilet Transfer (QC): 5 Car Transfer (QC): 3 Does the Patient Walk: Yes Walk 10 feet (QC): 5 Walk 50ft with 2 Turns (QC): 5 Walk 150 ft (QC): 5 Walking 10ft on Uneven Surface: 4 1 Step (curb) (QC): 4 4 Steps (QC): 4 12 Steps (QC): 88 Picking up an Object (QC): 5 Wheel 50 feet with 2 turns (QC: 4 Wheel 150 feet: 4 PT Plan Treatment/Plan Treatment Plan: Continue Plan of Care Treatment Plan: Bed Mobility, Education, Functional Activity Shanice, Functional Strength, Group Therapy, Gait, Safety, Therapeutic Exercise, Transfers Treatment Duration: Nov 13, 2021 Frequency: At least 5 of 7 days/Wk (IRF) Estimated Hrs Per Day: 1.5 hours per day Patient and/or Family Agrees t: Yes Safety Risks/Education Patient Education: Gait Training, Transfer Techniques, Steps, Correct Positioning, Disease Process, Safety Issues Teaching Recipient: Patient Teaching Methods: Demonstration, Discussion Response to Teaching: Verbalize Understanding, Return Demonstration, Reinforcement Needed Time/GCodes Time In: 755 Time Out: 855 Total Billed Treatment Time: 60 Total Billed Treatment 1,EX30,GT15,FA15 MANOHAR SNOW [employer] Nov 02, 2021 08:58
[2021-11-02] MEDS: ASPIRIN E.C. 81 MG (ECOTRIN) TAB PO SCH (10:08)
[2021-11-02] MEDS: CEFDINIR 300 MG (OMNICEF) CAP PO SCH (10:09)
[2021-11-02] MEDS: DOCUSATE SODIUM 100 MG (COLACE) CAP PO SCH ×3 (10:09→20:42)
[2021-11-02] MEDS: SERTRALINE 100 MG (ZOLOFT) TAB PO SCH (10:09)
[2021-11-02] MEDS: meTOproloL SUCCINATE 50 MG (TOPROL XL) TAB PO SCH (10:09)
[2021-11-02] MEDS: polyethylene glycoL POWDER 17 GM (MIRALAX) PACK PO SCH ×2 (10:10→19:15)
[2021-11-02] MEDS: SENNA W/DOCUSATE (SENOKOT S) TABLET PO SCH ×2 (10:10→19:16)
--- NOTE | 2021-11-02 10:39 | Occupational Ther Daily Note ---
OT Current Status-Daily Note Subjective Pt in recliner. Pt agreeable to OT tx. Mental Status/Objective Patient Orientation: Person, Place, Time, Situation Attachments: Polar Pack (post OT tx) ADL-Treatment Therapy Code Descriptions/Definitions Functional [place] Measure: 0=Not Assessed/NA 4=Minimal Assistance 1=Total Assistance 5=Supervision or Setup 2=Maximal Assistance 6=Modified [place] 3=Moderate Assistance 7=Complete IndependenceSCALE: Activities may be completed with or without assistive devices. 1-Xeedewxhnz-dwcanqf completes the activity by him/herself with no assistance from a helper. 5-Set-up or Clean-up Assistance-helper sets up or cleans up; patient completes activity. [place] assists only prior to or following the activity. 4-Supervision or Touching Assistance-helper provides verbal cues and/or touching/steadying and/or contact guard assistance as patient completes activity. Assistance may be provided throughout the activity or intermittently. 3-Partial/Moderate Assistance-helper does LESS THAN HALF the effort. [place] lifts, holds or supports trunk or limbs, but provides less than half the effort. 2-Substantial/Maximal Assistance-helper does MORE THAN HALF the effort. [place] lifts or holds trunk or limbs and provides more than half the effort. 4-Jbpvnwiyj-ldfait does ALL the effort. Patient does none of the effort to complete the activity. Or, the assistance of 2 or more helpers is required for the patient to complete the activity. If activity was not attempted, code reason: 7-Patient Refused. 9-Not Applicable-not attempted and the patient did not perform the activity before the current illness, exacerbation or injury. 10-Not Attempted due to Environmental Limitations-(lack of equipment, weather restraints, etc.). 88-Not Attempted due to Medical Conditions or Safety Concerns. Oral Hygiene (QC): 6 (independent) Bathing Location: L Arm, R Arm, L Upper Leg, R Upper Leg, L Lower Leg (including foot), R Lower Leg (including foot), Chest, Abdomen, Buttocks, Perineal Area Shower/Bathe Self (QC): 5 (setup/clean up) Upper Body Dressing (QC): 5 (setup) Lower Body Dressing (QC): 5 (setup, AE) On/Off Footwear: 3 (Assistance with Tedhose, pt able to complete gripper socks with set up using AE) Other Treatment Pt in recliner. Pt transitioned to FWW, SBA, functional mobility to SC in bathroom. Pt doffed dress, socks and underwear independently, AE. Pt completed showering, transitioned to w/c in bathroom, FWW, SBA, donned shirt, underwear, shorts, nadiya hose and socks, AE, assistance needed to don nadiya hose. Pt propelled w/c to sink, completed oral care and brushed her hair. Pt transitioned to FWW, functional mobility to [facility] area. Pt found 17 gentile bags in various locations to work on activity tolerance and standing balance while completing a functional task, AE, SBA, then tossed them into a basket after. Pt transitioned back to room, FWW, SBA. Pt supine in bed, polar pack on, call light in reach and all needs met. Education OT Patient Education: Correct positioning, Energy conservation, Modified ADL techniques, Progress toward Goal/Update tx plan, Purpose of tx/functional activities, Rehab process, Use of adapted equipment Teaching Recipient: Patient Teaching Methods: Demonstration, Discussion Response to Teaching: Verbalize Understanding, Return Demonstration OT Short Term Goals Short Term Goals Time Frame: Nov 04, 2021 Shower/bathe self: 3 Lower body dressin Putting on/taking off footwear: 3 OT Metal Numerical Tool Programmer Goals Skilled Nursing Goals Time Frame: Nov 20, 2021 Eating (QC): 6 Oral Hygiene (QC): 6 Toileting Hygiene (QC): 6 Shower/Bathe Self (QC): 4 Upper Body Dressing (QC): 6 Lower Body Dressing (QC): 4 On/Off Footwear (QC): 4 Additional Goals: 1-Demonstrate ADL Tasks, 2-Verbalize Understanding, 3- ImproveStrength/[place] 1=Demonstrate adherence to instructed precautions during ADL tasks. 2=Patient will verbalize/demonstrate understanding of assistive device s/modifications for ADL. 3=Patient will improve strength/tolerance for activity to enable patient to perform ADL's. OT Education/Plan Problem List/Assessment Assessment: Decreased Activ Tolerance, Impaired Funct Balance, Impaired I ADL's, Impaired Self-Care Skills Discharge Recommendations Plan/Recommendations: Continue POC Treatment Plan/Plan of Care Patient would benefit from OT for education, treatment and training to promote independence in ADL's, mobility, safety and/or upper extremity function for ADL's. Plan of Care: ADL Retraining, Functional Mobility, Group Exercise/Act as Ind, UE Funct Exercise/Act Treatment Duration: Nov 20, 2021 Frequency: At least 5 of 7 days/Wk (IRF) Estimated Hrs Per Day: 1.5 hours per day Rehab Potential: Fair Time/GCodes Start Time: 09:00 Stop Time: 10:30 Total Time Billed (hr/min): 90 Billed Treatment Time 1, ADL 4 (60), FA 2 (30) SONYA PRESTON OT Nov 02, 2021 10:39
--- NOTE | 2021-11-02 11:50 | Physical Therapy Daily Note ---
PT Daily Note-Current Subjective Pt. in bed with polar pack and CPAP on. Pt. agrees to therex and gait. No c/o pain Pain Location: No Pain Reported Mental Status Patient Orientation: Normal For Age Transfers SCALE: Activities may be completed with or without assistive devices. 0-Jyxurgktjx-edtvpyu completes the activity by him/herself with no assistance from a helper. 5-Set-up or Clean-up Assistance-helper sets up or cleans up; patient completes activity. [place] assists only prior to or following the activity. 4-Supervision or Touching Assistance-helper provides verbal cues and/or touching/steadying and/or contact guard assistance as patient completes activity. Assistance may be provided throughout the activity or intermittently. 3-Partial/Moderate Assistance-helper does LESS THAN HALF the effort. [place] lifts, holds or supports trunk or limbs, but provides less than half the effort. 2-Substantial/Maximal Assistance-helper does MORE THAN HALF the effort. [place] lifts or holds trunk or limbs and provides more than half the effort. 6-Csyvzneew-dsdofb does ALL the effort. Patient does none of the effort to complete the activity. Or, the assistance of 2 or more helpers is required for the patient to complete the activity. If activity was not attempted, code reason: 7-Patient Refused. 9-Not Applicable-not attempted and the patient did not perform the activity before the current illness, exacerbation or injury. 10-Not Attempted due to Environmental Limitations-(lack of equipment, weather restraints, etc.). 88-Not Attempted due to Medical Conditions or Safety Concerns. in out flat bed and on off toilet SBA to Mod I Weight Bearing Left Lower Extremity: Left Weight Bearing/Tolerated Gait Training Does the Patient Walk?: Yes Gait Assistive Device: FWW 50 ft x 2 FWW SBA, slow, even step length no LOB Exercises Supine Ex: Ankle pumps, Quad Set, Glut sets, Heel Slides, Short Arc Quads, Scooting, Straight leg raise, Hip abd/add Supine Reps: 20 Treatments toileted indep, washed hands at sink indep Assessment Current Status: Good Progress AROM approx 5 to 75 PT Short Term Goals Short Term Goals Time Frame: Oct 30, 2021 Roll Left & Right: 4 Sit to lyin Lying to sitting on side of be: 3 Sit to stand: 4 Chair/lpb-ut-ldaoc transfer: 4 Walk 10 feet: 4 Walk 50 feet with two turns: 4 PT Director Foundation Goals Director Foundation Goals PT Intermediate Goals Time Frame: Nov 13, 2021 Roll Left & Right (QC): 6 Sit to Lying (QC): 4 (SBA) Lying-Sitting on Side/Bed(QC): 4 (SBA) Sit to Stand (QC): 5 Chair/Eak-pw-Qmfsa Xfer(QC): 5 Toilet Transfer (QC): 5 Car Transfer (QC): 3 Does the Patient Walk: Yes Walk 10 feet (QC): 5 Walk 50ft with 2 Turns (QC): 5 Walk 150 ft (QC): 5 Walking 10ft on Uneven Surface: 4 1 Step (curb) (QC): 4 4 Steps (QC): 4 12 Steps (QC): 88 Picking up an Object (QC): 5 Wheel 50 feet with 2 turns (QC: 4 Wheel 150 feet: 4 PT Plan Treatment/Plan Treatment Plan: Continue Plan of Care Treatment Plan: Bed Mobility, Education, Functional Activity [place], Functional Strength, Group Therapy, Gait, Safety, Therapeutic Exercise, Transfers Treatment Duration: Nov 13, 2021 Frequency: At least 5 of 7 days/Wk (IRF) Estimated Hrs Per Day: 1.5 hours per day Patient and/or Family Agrees t: Yes Safety Risks/Education Patient Education: Gait Training, Transfer Techniques, Correct Positioning, Disease Process, Safety Issues Teaching Recipient: Patient Teaching Methods: Demonstration, Discussion Response to Teaching: Return Demonstration Time/GCodes Time In: 1105 Time Out: 1145 Total Billed Treatment Time: 40 Total Billed Treatment 1,GT10m,EX30m MANOHAR SNOW QUILL FIXER Nov 02, 2021 11:50
[2021-11-02 19:51] VITALS: BP 146/60
[2021-11-03] MEDS: RIVAROXABAN 15 MG TABLET (XARELTO) PO SCH ×2 (06:34→19:42)
[2021-11-03] MEDS: MULTIVIT W/MINERALS TAB (THERAGRAN M) PO SCH (06:34)
[2021-11-03] MEDS: LEVOTHYROXINE 100 MCG (LEVOTHROID) TAB PO SCH (06:34)
--- NOTE | 2021-11-03 06:50 | PM&R Progress Note ---
Subjective HPI/CC On Admission Date Seen by Provider: Nov 03, 2021 Time Seen by Provider: 09:00 Subjective/Events-last exam 11/03/2021: Pt wants discharged tomorrow Discharge planned tomorrow Will notify case management Pain medication tolerated Completing UTI soon Maintain on Eliquis 11/02/2021: Pt is doing well Overall feels like she is improving Pain is much improved Maintain on Eliquis 11/01/2021: Supportive care continues Pain improved Family at bedside Bowels are moving Tolerating Eliquis 10/31/2021: Patient doing really well Bowels are moving UTI treatment tolerated well Eliquis maintained for acute DVT 10/30/2021: Pt doing about the same No falls Peroneal vein thrombosis noted on ultrasound Dr. Noriega ordered and she had been on Lovenox 60 mg twice daily so we will shift her to oral anticoagulation No significant changes 10/29/21: Patient doing much better Patient is pretty much behind her knee No dyspnea Tramadol helps the pain Bowels moved yesterday Tolerating antibiotic for UTI 10/28/2021: Pt is doing okay Urine culture shows E-Coli so will place on her Omnicef 300 BID Discharge planned for next Tuesday Bowels moved yesterday 10/27/21: Pt is doing really well A new CPAP was provided yesterday since hers broke UA shows no severe infection but will follow-up on urine culture No more incontinence Yellow drainage from the incision, Dr. Noriega is aware 10/26/2021: Patient doing well In and out cath for UA will be performed due to UTI symptoms Cipro was completed prior to surgery Platelet count of 99,000 Patient told me she sees a sales operations analyst up at for cirrhosis from [facility] Ultrasound that was ordered was canceled due to work-up already completed for liver 10/25/2021: Tramadol working very well for her Hydrocodone for severe pain Family at bedside Incontinence is improved Checked meds and labs 10/24/2021: Patient doing really well Working hard Percocet is too much for her so we will start hydrocodone and tramadol Remains on 2 L at night since her CPAP broke Incontinence noted Bowels are moving Review of Systems General: Fatigue, Malaise Musculoskeletal: leg pain Objective Exam Vital Signs Vital Signs Date Time Temp Pulse Resp B/P (MAP) Pulse Ox O2 Delivery O2 Flow Rate FiO2 11/03/21 20:22 37.4 68 20 128/60 (82) 97 NIV CPAP 11/03/21 15:54 2.00 Capillary Refill : General Appearance: No Apparent Distress, WD/WN, Chronically ill, Obese HEENT: PERRL/EOMI, Normal ENT Inspection, Pharynx Normal Neck: Full Range of Motion, Normal Inspection, Non Tender, Supple, Carotid Bruit Respiratory: Chest Non Tender, Lungs Clear, Normal Breath Sounds, No Accessory Muscle Use, No Respiratory Distress Cardiovascular: Regular Rate, Rhythm, No Edema, No Gallop, No JVD, No Murmur, Normal Peripheral Pulses Gastrointestinal: Normal Bowel Sounds, No Organomegaly, No Pulsatile Mass, Non Tender, Soft Back: Normal Inspection, No CVA Tenderness, No Vertebral Tenderness Extremity: Normal Capillary Refill, Normal Inspection, Normal Range of Motion (Except left leg), Non Tender, No Calf Tenderness, No Pedal Edema Neurologic/Psychiatric: Alert, Oriented x3, No Motor/Sensory Deficits, Normal Mood/Affect, Abnormal Gait, Motor Weakness (Left leg) Skin: Normal Color, Warm/Dry Lymphatic: No Adenopathy Results/Procedures Lab Patient resulted labs reviewed. FIM Transfers Therapy Code Descriptions/Definitions Functional [place] Measure: 0=Not Assessed/NA 4=Minimal Assistance 1=Total Assistance 5=Supervision or Setup 2=Maximal Assistance 6=Modified [place] 3=Moderate Assistance 7=Complete IndependenceSCALE: Activities may be completed with or without assistive devices. 2-Loofwdoezb-euhkiqt completes the activity by him/herself with no assistance from a helper. 5-Set-up or Clean-up Assistance-helper sets up or cleans up; patient completes activity. [place] assists only prior to or following the activity. 4-Supervision or Touching Assistance-helper provides verbal cues and/or touching/steadying and/or contact guard assistance as patient completes activity. Assistance may be provided throughout the activity or intermittently. 3-Partial/Moderate Assistance-helper does LESS THAN HALF the effort. [place] lifts, holds or supports trunk or limbs, but provides less than half the effort. 2-Substantial/Maximal Assistance-helper does MORE THAN HALF the effort. [place] lifts or holds trunk or limbs and provides more than half the effort. 8-Umtmvqooc-spghkq does ALL the effort. Patient does none of the effort to complete the activity. Or, the assistance of 2 or more helpers is required for the patient to complete the activity. If activity was not attempted, code reason: 7-Patient Refused. 9-Not Applicable-not attempted and the patient did not perform the activity before the current illness, exacerbation or injury. 10-Not Attempted due to Environmental Limitations-(lack of equipment, weather restraints, etc.). 88-Not Attempted due to Medical Conditions or Safety Concerns. Roll Left to Right (QC): 6 Sit to Lying (QC): 6 Sit to Stand (QC): 6 Chair/Drx-vy-Galzv Xfer(QC): 6 Car Transfer (QC): 88 Gait Training Does the Patient Walk?: Yes Distance: 225' Walk 10 feet (QC): 6 Walk 50 ft with 2 Turns(QC): 6 Walk 150 ft (QC): 6 Walking 10ft/uneven surface-QC: 88 Gait Persons Needed: 1 Gait Assistive Device: FWW Wheelchair Training Does the Pt Use a Wheelchair?: No Distance: 50' Wheel 50 ft with 2 turns (QC): 4 Wheel 150 ft (QC): 88 Type of Wheelchair: Manual Stair Training Stair Training: Handrails/: 2 handrails #of Steps: 4 1 Step (curb) (QC): 88 4 Steps (QC): 4 12 Steps (QC): 7 Stairs: Pattern: Step to Balance Picking up an Object (QC): 88 ADL-Treatment Eating (QC): 6 (Per pt report,) Oral Hygiene (QC): 6 (independent) Bathing Location: L Arm, R Arm, L Upper Leg, R Upper Leg, L Lower Leg (including foot), R Lower Leg (including foot), Chest, Abdomen, Buttocks, Perineal Area Shower/Bathe Self (QC): 5 (setup/clean up) Upper Body Dressing (QC): 5 (setup) Lower Body Dressing (QC): 5 (setup, AE) On/Off Footwear (QC): 3 (Assistance with [place], pt able to complete gripper socks with set up using AE) Toileting Hygiene (QC): 3 (Min A for thoroughness.) Toilet Transfer (QC): 4 (SBA) Assessment/Plan Assessment and Plan Assess & Plan/Chief Complaint Assessment: Status post left total knee replacement postop day #7 Super morbid obesity Diabetes Hypertension NGUYEN on CPAP Hyperlipidemia Hypothyroidism Pacemaker Cirrhosis from [facility] Thrombocytopenia from cirrhosis UTI E. coli placed on Omnicef 10/28/2021 Left peroneal thrombosis failed Lovenox 60 mg twice daily so started Eliquis acute thrombosis dose Plan: Home meds Pain control Bowel regimen Rehab protocol 10/24/2021: Pain control DC Percocet and start Ultram and hydrocodone Continue aggressive rehab 10/25/2021: Continue aggressive rehab Ultram working very well for her 10/26/2021: Check UA Continue aggressive therapy 10/27/21: Monitor incision 10/28/2021: UTI treatment Aggressive rehab DC 11/06/2021 10/29/2021: Supportive care UTI treatment 10/30/2021: Start Eliquis for thrombosis Continue UTI treatment 10/31/2021: Eliquis Omnicef 11/01/2021: Complete UTI treatment Eliquis 11/02/2021: Supportive care Discharge Tuesday11/03/2021: Discharge home tomorrow Tuesday (1) Status post left knee replacement (2) Non-insulin dependent type 2 diabetes mellitus Status: Chronic (3) HTN (hypertension) Status: Chronic (4) NGUYEN (obstructive sleep apnea) Status: Chronic (5) Hypothyroidism Status: Chronic (6) Pacemaker (7) Chronic diastolic heart failure CULLEN TILLMAN DO Nov 03, 2021 06:50
[2021-11-03 07:55] VITALS: BP 116/50
[2021-11-03] MEDS: ASPIRIN E.C. 81 MG (ECOTRIN) TAB PO SCH (08:13)
[2021-11-03] MEDS: meTOproloL SUCCINATE 50 MG (TOPROL XL) TAB PO SCH (08:13)
[2021-11-03] MEDS: SENNA W/DOCUSATE (SENOKOT S) TABLET PO SCH ×2 (08:13→19:28)
[2021-11-03] MEDS: DOCUSATE SODIUM 100 MG (COLACE) CAP PO SCH ×2 (08:13→19:28)
[2021-11-03] MEDS: SERTRALINE 100 MG (ZOLOFT) TAB PO SCH (08:13)
[2021-11-03] MEDS: polyethylene glycoL POWDER 17 GM (MIRALAX) PACK PO SCH ×2 (09:00→19:28)
--- NOTE | 2021-11-03 09:02 | Physical Therapy Daily Note ---
PT Daily Note-Current Subjective Pt. agrees to Rx, wants to DC PITA. Only pain c/o is slight cramp in left calf which dissipated with gait and activity Pain Numeric Pain Scale: 3 Location: Left Location Body Site: Calf Pain Description: Cramping Appearance left calf inspected with considerable bruising, neg Homans sign Mental Status Patient Orientation: Normal For Age Transfers SCALE: Activities may be completed with or without assistive devices. 7-Fwtgpjliwg-afbxfet completes the activity by him/herself with no assistance from a helper. 5-Set-up or Clean-up Assistance-helper sets up or cleans up; patient completes activity. [place] assists only prior to or following the activity. 4-Supervision or Touching Assistance-helper provides verbal cues and/or touching/steadying and/or contact guard assistance as patient completes activity. Assistance may be provided throughout the activity or intermittently. 3-Partial/Moderate Assistance-helper does LESS THAN HALF the effort. [place] lifts, holds or supports trunk or limbs, but provides less than half the effort. 2-Substantial/Maximal Assistance-helper does MORE THAN HALF the effort. [place] lifts or holds trunk or limbs and provides more than half the effort. 0-Xufcblbur-kllevr does ALL the effort. Patient does none of the effort to complete the activity. Or, the assistance of 2 or more helpers is required for the patient to complete the activity. If activity was not attempted, code reason: 7-Patient Refused. 9-Not Applicable-not attempted and the patient did not perform the activity before the current illness, exacerbation or injury. 10-Not Attempted due to Environmental Limitations-(lack of equipment, weather restraints, etc.). 88-Not Attempted due to Medical Conditions or Safety Concerns. Roll Left & Right (QC): 6 Sit to Lying (QC): 6 Lying to Sitting/Side of Bed(Q: 6 Sit to Stand (QC): 6 Chair/Hyl-mu-Cgxwi Xfer(QC): 6 Toilet Transfer (QC): 6 Car Transfer (QC): 88 pt. morbidly obese with large apron, car simulator likely would not accommodate pt. and possibly unsafe. Pt. watches this RAILROAD SUPERVISOR OF ENGINES demo and declines attempt at car TRF , but states she feels she can safely TRF into her own vehicle Weight Bearing Left Lower Extremity: Left Weight Bearing/Tolerated Gait Training Does the Patient Walk?: Yes Walk 10 feet (QC): 6 Walk 50 ft with 2 Turns(QC): 6 Walk 150 ft (QC): 6 Walking 10ft/uneven surface-QC: 5 Gait Persons Needed: 0 Stair Training Stair Training: Handrails/: 2 handrails #of Steps: 4 1 Step (curb) (QC): 5 4 Steps (QC): 5 12 Steps (QC): 7 Stairs: Pattern: Step to pt. shares that she has 3 steps into the 5th wheel she lives in and does not feels she should do 8 or 12 steps, "no need" Balance Picking up an Object (QC): 88 Exercises Supine Ex: Ankle pumps, Quad Set, Rolling, Glut sets, Heel Slides, Short Arc Quads, Scooting, Straight leg raise, Hip abd/add Supine Reps: 20 Seated Therapy Exercises: Ankle pumps, Sit to stand, Long arc quads Seated Reps: 20 Treatments toileted indep using tongs for BM and clean up, still requires assist for donning of polar pack , socks Assessment Current Status: Good Progress meets goals, AROM 5 deg to 75 deg L TKR, has indep SLR PT Short Term Goals Short Term Goals Time Frame: Oct 30, 2021 Roll Left & Right: 4 Sit to lyin Lying to sitting on side of be: 3 Sit to stand: 4 Chair/vvc-hr-efrae transfer: 4 Walk 10 feet: 4 Walk 50 feet with two turns: 4 PT Manager Audio Goals Senior Living Goals PT Manager Audio Goals Time Frame: Nov 13, 2021 Roll Left & Right (QC): 6 Sit to Lying (QC): 4 (SBA) Lying-Sitting on Side/Bed(QC): 4 (SBA) Sit to Stand (QC): 5 Chair/Coj-ls-Qqmdr Xfer(QC): 5 Toilet Transfer (QC): 5 Car Transfer (QC): 3 Does the Patient Walk: Yes Walk 10 feet (QC): 5 Walk 50ft with 2 Turns (QC): 5 Walk 150 ft (QC): 5 Walking 10ft on Uneven Surface: 4 1 Step (curb) (QC): 4 4 Steps (QC): 4 12 Steps (QC): 88 Picking up an Object (QC): 5 Wheel 50 feet with 2 turns (QC: 4 Wheel 150 feet: 4 PT Plan Treatment/Plan Treatment Plan: Continue Plan of Care Treatment Plan: Bed Mobility, Education, Functional Activity Shanice, Functional Strength, Group Therapy, Gait, Safety, Therapeutic Exercise, Transfers Treatment Duration: Nov 13, 2021 Frequency: At least 5 of 7 days/Wk (IRF) Estimated Hrs Per Day: 1.5 hours per day Patient and/or Family Agrees t: Yes Safety Risks/Education Patient Education: Gait Training, Transfer Techniques, Steps, Reviewed Precautions, Correct Positioning, Disease Process, Safety Issues Teaching Recipient: Patient Teaching Methods: Demonstration, Discussion Response to Teaching: Verbalize Understanding, Return Demonstration Time/GCodes Time In: 800 Time Out: 900 Total Billed Treatment Time: 60 Total Billed Treatment 1,GT15m,EX30m,FA15m MANOHAR SNOW RAILROAD SUPERVISOR OF ENGINES Nov 03, 2021 09:02
--- NOTE | 2021-11-03 09:22 | Occupational Ther Daily Note ---
OT Current Status-Daily Note Subjective Pt supine in bed. Pt states BUE are sore from yesterday. Pt agreeable to OT tx. Mental Status/Objective Patient Orientation: Person, Place, Time, Situation Attachments: Polar Pack (post OT tx) ADL-Treatment Therapy Code Descriptions/Definitions Functional [place] Measure: 0=Not Assessed/NA 4=Minimal Assistance 1=Total Assistance 5=Supervision or Setup 2=Maximal Assistance 6=Modified [place] 3=Moderate Assistance 7=Complete IndependenceSCALE: Activities may be completed with or without assistive devices. 0-Stvqwghhmq-vfitvab completes the activity by him/herself with no assistance from a helper. 5-Set-up or Clean-up Assistance-helper sets up or cleans up; patient completes activity. [place] assists only prior to or following the activity. 4-Supervision or Touching Assistance-helper provides verbal cues and/or touching/steadying and/or contact guard assistance as patient completes acti vity. Assistance may be provided throughout the activity or intermittently. 3-Partial/Moderate Assistance-helper does LESS THAN HALF the effort. [place] lifts, holds or supports trunk or limbs, but provides less than half the effort. 2-Substantial/Maximal Assistance-helper does MORE THAN HALF the effort. [place] lifts or holds trunk or limbs and provides more than half the effort. 2-Rwsduzacb-lvqdez does ALL the effort. Patient does none of the effort to complete the activity. Or, the assistance of 2 or more helpers is required for the patient to complete the activity. If activity was not attempted, code reason: 7-Patient Refused. 9-Not Applicable-not attempted and the patient did not perform the activity before the current illness, exacerbation or injury. 10-Not Attempted due to Environmental Limitations-(lack of equipment, weather restraints, etc.). 88-Not Attempted due to Medical Conditions or Safety Concerns. Eating (QC): 6 (independent ) Toileting Hygiene (QC): 6 (per pt report, completed independently ) Other Treatment Pt supine in bed. Pt transitioned EOB independently. Pt transitioned to FWW, SBA, functional mobility to therapy gym, no breaks. Pt completed arm bike, BUE, to work on arm strengthening, 25 riley, 20 mins. Pt completed rubber band puzzles x5 to work on fine motor skills, problem solving and strengthening, 2 lb weights both wrist. Pt completed pipe tree x3, to work on problem solving, activity tolerance and strengthening , 2 lb weights on both wrist, no errors. Pt transitioned to FWW, functional mobility to bed in room, SBA. Pt supine in bed, polar pack on, call light in reach and all needs met. Education OT Patient Education: Correct positioning, Energy conservation, Exercise program, Modified ADL techniques, Progress toward Goal/Update tx plan, Purpose of tx/functional activities, Rehab process Teaching Recipient: Patient Teaching Methods: Discussion Response to Teaching: Verbalize Understanding OT Short Term Goals Short Term Goals Time Frame: Nov 04, 2021 Shower/bathe self: 3 Lower body dressin Putting on/taking off footwear: 3 OT New Car Salesperson Goals [facility] Goals Time Frame: Nov 20, 2021 Eating (QC): 6 Oral Hygiene (QC): 6 Toileting Hygiene (QC): 6 Shower/Bathe Self (QC): 4 Upper Body Dressing (QC): 6 Lower Body Dressing (QC): 4 On/Off Footwear (QC): 4 Additional Goals: 1-Demonstrate ADL Tasks, 2-Verbalize Understanding, 3- ImproveStrength/Shanice 1=Demonstrate adherence to instructed precautions during ADL tasks. 2=Patient will verbalize/demonstrate understanding of assistive devices/modifica tions for ADL. 3=Patient will improve strength/tolerance for activity to enable patient to perform ADL's. OT Education/Plan Problem List/Assessment Assessment: Decreased Activ Tolerance, Decreased UE Strength, Impaired Funct Balance, Impaired I ADL's, Impaired Self-Care Skills Discharge Recommendations Plan/Recommendations: Continue POC Treatment Plan/Plan of Care Patient would benefit from OT for education, treatment and training to promote independence in ADL's, mobility, safety and/or upper extremity function for ADL's. Plan of Care: ADL Retraining, Functional Mobility, Group Exercise/Act as Ind, UE Funct Exercise/Act Treatment Duration: Nov 20, 2021 Frequency: At least 5 of 7 days/Wk (IRF) Estimated Hrs Per Day: 1.5 hours per day Rehab Potential: Fair Time/GCodes Start Time: 09:00 Stop Time: 10:30 Total Time Billed (hr/min): 90 Billed Treatment Time 1, EX (20), FA 5 (70) SONYA PRESTON OT Nov 03, 2021 09:21
--- NOTE | 2021-11-03 09:32 | Progress Note ---
Standard Progress Note Progress Notes/Assess & Plan Date Seen by a Provider: Nov 03, 2021 Time Seen by a Provider: 09:26 Progress/Assessment & Plan Swathi verbalizes no C/O and states she is doing well. Anxious to go home tomorrow. Reports that the incision drainage has subsided. O: Left knee no warmth or erythema. Incision well approximated with no visible drainage and renaldo in place. Dressing clean and dry. Calf soft and nontender with negative Malgorzata's. Intact flexion and extension. VSS A: Doing well S/P Left TKA P: continue OT, PT and DVT prophylaxis DC renaldo tomorrow and steri strip wound before heading home F/U with Dr. Noriega next week in clinic LIBORIO MURRAY Nov 03, 2021 09:32
--- NOTE | 2021-11-03 11:30 | Physical Therapy Daily Note ---
PT Daily Note-Current Subjective Pt. in bed, agrees to Rx. No pain c/o Pain Location: No Pain Reported Mental Status Patient Orientation: Normal For Age Transfers SCALE: Activities may be completed with or without assistive devices. 7-Fvnefydtvf-kslfyqm completes the activity by him/herself with no assistance from a helper. 5-Set-up or Clean-up Assistance-helper sets up or cleans up; patient completes activity. [place] assists only prior to or following the activity. 4-Supervision or Touching Assistance-helper provides verbal cues and/or touching/steadying and/or contact guard assistance as patient completes activity. Assistance may be provided throughout the activity or intermittently. 3-Partial/Moderate Assistance-helper does LESS THAN HALF the effort. [place] lifts, holds or supports trunk or limbs, but provides less than half the effort. 2-Substantial/Maximal Assistance-helper does MORE THAN HALF the effort. [place] lifts or holds trunk or limbs and provides more than half the effort. 8-Karqqtlqv-dotigi does ALL the effort. Patient does none of the effort to complete the activity. Or, the assistance of 2 or more helpers is required for the patient to complete the activity. If activity was not attempted, code reason: 7-Patient Refused. 9-Not Applicable-not attempted and the patient did not perform the activity before the current illness, exacerbation or injury. 10-Not Attempted due to Environmental Limitations-(lack of equipment, weather restraints, etc.). 88-Not Attempted due to Medical Conditions or Safety Concerns. bed TRF, toilet TRF, chair TRF all SBA to Mod I Weight Bearing Left Lower Extremity: Left Weight Bearing/Tolerated Gait Training Does the Patient Walk?: Yes Gait Assistive Device: FWW 50ft with several sharp turns , 25 ft FWW SBA, no LOB Exercises Standing: Heel/toe raises, Marching, Sit to Stand, Side steps Standing Reps: 15 Treatments bed TRFs SBA, toileting indep, standing and seatd therex, call topete at hand after rx Assessment Current Status: Good Progress meets goals, planning DC tomorrow PT Short Term Goals Short Term Goals Time Frame: Oct 30, 2021 Roll Left & Right: 4 Sit to lyin Lying to sitting on side of be: 3 Sit to stand: 4 Chair/aej-de-ngpxy transfer: 4 Walk 10 feet: 4 Walk 50 feet with two turns: 4 PT Educational Speech Language Clinician Goals Shelter Goals PT Shelter Goals Time Frame: Nov 13, 2021 Roll Left & Right (QC): 6 Sit to Lying (QC): 4 (SBA) Lying-Sitting on Side/Bed(QC): 4 (SBA) Sit to Stand (QC): 5 Chair/Rut-vn-Lyxjd Xfer(QC): 5 Toilet Transfer (QC): 5 Car Transfer (QC): 3 Does the Patient Walk: Yes Walk 10 feet (QC): 5 Walk 50ft with 2 Turns (QC): 5 Walk 150 ft (QC): 5 Walking 10ft on Uneven Surface: 4 1 Step (curb) (QC): 4 4 Steps (QC): 4 12 Steps (QC): 88 Picking up an Object (QC): 5 Wheel 50 feet with 2 turns (QC: 4 Wheel 150 feet: 4 PT Plan Treatment/Plan Treatment Plan: Continue Plan of Care Treatment Plan: Bed Mobility, Education, Functional Activity Shanice, Functional Strength, Group Therapy, Gait, Safety, Therapeutic Exercise, Transfers Treatment Duration: Nov 13, 2021 Frequency: At least 5 of 7 days/Wk (IRF) Estimated Hrs Per Day: 1.5 hours per day Patient and/or Family Agrees t: Yes Safety Risks/Education Patient Education: Gait Training, Transfer Techniques, Correct Positioning, Safety Issues Teaching Recipient: Patient Teaching Methods: Demonstration, Discussion Response to Teaching: Verbalize Understanding, Return Demonstration Time/GCodes Time In: 1100 Time Out: 1130 Total Billed Treatment Time: 30 Total Billed Treatment 1,FA10m,EX20m MANOHAR SNOW SOLUTIONS SPECIALIST Nov 03, 2021 11:30
[2021-11-03 20:22] VITALS: BP 128/60
[2021-11-04] MEDS ORDERED: RIVA15TA2 PO (05:55)
[2021-11-04] MEDS ORDERED: ACHD5005 PO (05:55)
[2021-11-04] MEDS ORDERED: RIVA20TA2 PO (05:55)
[2021-11-04] MEDS ORDERED: TRM50T PO (05:55)
--- NOTE | 2021-11-04 05:56 | D/C HH Face to Face Order ---
D/C HH Face to Face Orders Reconcile Patient Problems Problems Reviewed?: Yes Instructions for Patient HH Patient Instructions/FollowUp: PCP 1 week Physician to follow Patient: PCP Discharge Diet for Home: No Restrictions Patient Problems: Knee replacement DVT Patient Data-Allergies,Ht & Wt Patient Allergies: Coded Allergies: COVID-19 (SARS-CoV-2) vaccine, meri (Unverified Allergy, Severe, Anaphylaxis, 10/14/21) erythromycin base (Unverified Allergy, Severe, Hives, 10/14/21) Penicillins (Verified Allergy, Intermediate, HIVES, 10/14/21) Sulfa (Sulfonamide Antibiotics) (Verified Allergy, Intermediate, HIVES, 10/14/21) adhesive tape (Verified Allergy, Intermediate, HIVES, 10/14/21) tetanus and diphtheria toxoids (Verified Allergy, Intermediate, HIVES, 10/14/21) Influenza Virus Vaccines (Verified Adverse Reaction, Mild, NAUSEA, 10/14/21) atorvastatin (Verified Adverse Reaction, Mild, NAUSEA, 10/14/21) hydromorphone (Verified Adverse Reaction, Mild, hallucinations, 10/14/21) morphine (Verified Adverse Reaction, Mild, hallcination, 10/14/21) simvastatin (Verified Adverse Reaction, Mild, NAUSEA, 10/14/21) Height (Feet): 5 Height (Inches): 2.00 Weight (Pounds): 306 Weight (Ounces): 0.0 Home Health Need/Face to Face Date of Face to Face: Nov 04, 2021 Clinical Findings: Generalized weakness and fatigue, Instability, Muscle weakness, Pain with ambulation I have seen Pt phjv-bi-ukzo: Yes Discharged To: Home Diagnosis/Conditions: Knee replacement DVT Patient is Homebound due to: Muscle weakness, Pain w/ambulation Homebound Status Due to the above stated illness, injury or surgical procedure (medical condition or diagnosis) and associated clinical findings, the patient is homebound because of his/her inability to leave home except with aid of a supportive device and/or person AND leaving the home requires a considerable and taxing effort or is medically contraindicated. Pt req the following assistanc: Walker Home Health Nursing Orders Home Health Services Order: Nursing Services, Survey Director-Evaluate & Treat, Physical Therapy-Evaluate & Treat Certify Stmt I certify that this patient is under my care and that I, a nurse practitioner or a physician; a content assistant working with me, had a face to face encounter that - meets the physician face to face encounter requirements with this patient as dated. CULLEN TILLMAN DO Nov 04, 2021 05:56
--- NOTE | 2021-11-04 05:57 | Discharge Summary ---
Diagnosis/Chief Complaint Date of Admission Oct 23, 2021 at 10:25 Date of Discharge Discharge Date: Nov 04, 2021 Discharge Diagnosis Assessment: Status post left total knee replacement Super morbid obesity Diabetes Hypertension NGUYEN on CPAP Hyperlipidemia Hypothyroidism Pacemaker Cirrhosis from [place] Thrombocytopenia from cirrhosis UTI E. coli placed on Omnicef 10/28/2021 Left peroneal thrombosis failed Lovenox 60 mg twice daily so started Eliquis acute thrombosis dose Plan: Home meds Pain control Bowel regimen Rehab protocol 10/24/2021: Pain control DC Percocet and start Ultram and hydrocodone Continue aggressive rehab 10/25/2021: Continue aggressive rehab Ultram working very well for her 10/26/2021: Check UA Continue aggressive therapy 10/27/21: Monitor incision 10/28/2021: UTI treatment Aggressive rehab DC 11/06/2021 10/29/2021: Supportive care UTI treatment 10/30/2021: Start Eliquis for thrombosis Continue UTI treatment 10/31/2021: Eliquis Omnicef 11/01/2021: Complete UTI treatment Eliquis 11/02/2021: Supportive care Discharge Tuesday11/03/2021: Discharge home tomorrow Tuesday (1) Status post left knee replacement (2) Non-insulin dependent type 2 diabetes mellitus Status: Chronic (3) HTN (hypertension) Status: Chronic (4) NGUYEN (obstructive sleep apnea) Status: Chronic (5) Hypothyroidism Status: Chronic (6) Pacemaker (7) Chronic diastolic heart failure Discharge Summary Discharge Physical Examination Allergies: Coded Allergies: COVID-19 (SARS-CoV-2) vaccine, meri (Unverified Allergy, Severe, Anaphylaxis, 10/14/21) erythromycin base (Unverified Allergy, Severe, Hives, 10/14/21) Penicillins (Verified Allergy, Intermediate, HIVES, 10/14/21) Sulfa (Sulfonamide Antibiotics) (Verified Allergy, Intermediate, HIVES, 10/14/21) adhesive tape (Verified Allergy, Intermediate, HIVES, 10/14/21) tetanus and diphtheria toxoids (Verified Allergy, Intermediate, HIVES, 10/14/21) Influenza Virus Vaccines (Verified Adverse Reaction, Mild, NAUSEA, 10/14/21) atorvastatin (Verified Adverse Reaction, Mild, NAUSEA, 10/14/21) hydromorphone (Verified Adverse Reaction, Mild, hallucinations, 10/14/21) morphine (Verified Adverse Reaction, Mild, hallcination, 10/14/21) simvastatin (Verified Adverse Reaction, Mild, NAUSEA, 10/14/21) Vitals & I&Os Vital Signs Date Time Temp Pulse Resp B/P (MAP) Pulse Ox O2 Delivery O2 Flow Rate FiO2 11/04/21 11:00 36.8 84 18 135/63 95 Room Air 11/03/21 15:54 2.00 General Appearance: Alert, Oriented X3, Cooperative Respiratory: Clear to Auscultation Cardiovascular: Regular Rate Psych/Mental Status: Mental Status NL Hospital Course Was the Problem List Reviewed?: Yes Pt had a lengthy hospital course for 13 days after she was admitted following a left total knee replacement but her BMI of 62 met criteria for inpatient rehab. She did have a UTI, I placed Omnicef and she completed treatment for that. [place] removed at day of discharge. Acute DVT noted on ultrasound when the left leg had increased pain. She was placed on Xarelto and will continue that regimen. Pt overall did well and will discharge in improved condition. Labs (last 24 hrs) Laboratory Tests 10/23/21 10:25: Lab Scanned Report Referred Lab Report 10/24/21 05:55: White Blood Count 9.0, Red Blood Count 3.26L, Hemoglobin 11.3L, Hematocrit 33L, Mean Corpuscular Volume 100H, Mean Corpuscular Hemoglobin 35H, Mean Corpuscular Hemoglobin Concent 35, Red Cell Distribution Width 12.5, Platelet Count 85L, Mean Platelet Volume 9.9, Immature Granulocyte % (Auto) 1, Neutrophils (%) (Auto) 69, Lymphocytes (%) (Auto) 15, Monocytes (%) (Auto) 13H, Eosinophils (%) (Auto) 2, Basophils (%) (Auto) 1, Neutrophils # (Auto) 6.2, Lymphocytes # (Auto) 1.3, Monocytes # (Auto) 1.2H, Eosinophils # (Auto) 0.2, Basophils # (Auto) 0.1, Immature Granulocyte # (Auto) 0.1, Percent Immature Platelet Fraction 2.8, Sodium Level 134L, Potassium Level 4.2, Chloride Level 105, Carbon Dioxide Level 21, Anion Gap 8, Blood Urea Nitrogen 15, Creatinine 0.77, Estimat Glomerular Filtration Rate 84, BUN/Creatinine Ratio 19, Glucose Level 152H, Calcium Level 9.5, Corrected Calcium 10.1, Total Bilirubin 6.3H, Aspartate Amino Transf (AST/SGOT) 46H, Alanine Aminotransferase (ALT/SGPT) 26, Alkaline Phosphatase 53, Total Protein 5.6L, Albumin 3.2 10/26/21 05:40: White Blood Count 6.2, Red Blood Count 3.14L, Hemoglobin 10.8L, Hematocrit 32L, Mean Corpuscular Volume 101H, Mean Corpuscular Hemoglobin 34, Mean Corpuscular Hemoglobin Concent 34, Red Cell Distribution Width 13.0, Platelet Count 99L, Mean Platelet Volume 10.0, Immature Granulocyte % (Auto) 1, Neutrophils (%) (Auto) 64, Lymphocytes (%) (Auto) 14, Monocytes (%) (Auto) 15H, Eosinophils (%) (Auto) 6, Basophils (%) (Auto) 1, Neutrophils # (Auto) 4.0, Lymphocytes # (Auto) 0.9L, Monocytes # (Auto) 0.9, Eosinophils # (Auto) 0.4H, Basophils # (Auto) 0.0, Immature Granulocyte # (Auto) 0.1, Percent Immature Platelet Fraction 2.7 10/26/21 06:00: Sodium Level 137, Potassium Level 4.0, Chloride Level 107, Carbon Dioxide Level 22, Anion Gap 8, Blood Urea Nitrogen 14, Creatinine 0.70, Estimat Glomerular Filtration Rate 95, BUN/Creatinine Ratio 20, Glucose Level 127H, Calcium Level 9.5, Corrected Calcium 10.3H, Total Bilirubin 5.6H, Aspartate Amino Transf (AST/SGOT) 38H, Alanine Aminotransferase (ALT/SGPT) 31, Alkaline Phosphatase 63, Total Protein 5.4L, Albumin 3.0L 10/26/21 11:00: Urine Color AMBERH, Urine Clarity CLEAR, Urine pH 6.0, Urine Specific [place] 1.025H, Urine Protein NEGATIVE, Urine Glucose (UA) TRACEH, Urine Ketones NEGATIVE, Urine Nitrite POSITIVEH, Urine Bilirubin 2+H, Urine Urobilinogen >=8.0, Urine Leukocyte Esterase TRACEH, Urine RBC (Auto) NEGATIVE, Urine RBC NON E, Urine WBC 2-5, Urine Squamous Epithelial Cells RARE, Urine Crystals PRESENTH, Urine Calcium Oxalate Crystals FEWH, Urine Bacteria MODERATEH, Urine Casts NONE, Urine Mucus NEGATIVE, Urine Culture Indicated YES 11/02/21 07:09: White Blood Count 5.5, Red Blood Count 3.05L, Hemoglobin 10.6L, Hematocrit 34L, Mean Corpuscular Volume 112H, Mean Corpuscular Hemoglobin 35H, Mean Corpuscular Hemoglobin Concent 31L, Red Cell Distribution Width 13.4, Platelet Count 117L, Mean Platelet Volume 10.3, Immature Granulocyte % (Auto) 0, Neutrophils (%) (Auto) 67, Lymphocytes (%) (Auto) 19, Monocytes (%) (Auto) 9, Eosinophils (%) (Auto) 4, Basophils (%) (Auto) 0, Neutrophils # (Auto) 3.7, Lymphocytes # (Auto) 1.1, Monocytes # (Auto) 0.5, Eosinophils # (Auto) 0.2, Basophils # (Auto) 0.0, Immature Granulocyte # (Auto) 0.0, Percent Immature Platelet Fraction 2.7, Sodium Level 138, Potassium Level 4.2, Chloride Level 109H, Carbon Dioxide Level 22, Anion Gap 7, Blood Urea Nitrogen 12, Creatinine 0.72, Estimat Glomerular Filtration Rate 92, BUN/Creatinine Ratio 17, Glucose Level 129H, Calcium Level 9.7, Corrected Calcium 10.7H, Total Bilirubin 3.3H, Aspartate Amino Transf (AST/SGOT) 46H, Alanine Aminotransferase (ALT/SGPT) 32, Alkaline Phosphatase 75, Total Protein 5.4L, Albumin 2.8L Microbiology 10/26/21 Urine Culture - Final, Complete Escherichia coli Pending Labs Microbiology Date/Time Source Procedure Growth Status 10/26/21 11:00 Urine Straight Cath, In/Out Urine Culture - Final Escherichia coli Complete Laboratory Tests 10/23/21 10:25: Lab Scanned Report Referred Lab Report 10/24/21 05:55: White Blood Count 9.0, Red Blood Count 3.26, Hemoglobin 11.3, Hematocrit 33, Mean Corpuscular Volume 100, Mean Corpuscular Hemoglobin 35, Mean Corpuscular Hemoglobin Concent 35, Red Cell Distribution Width 12.5, Platelet Count 85, Mean Platelet Volume 9.9, Immature Granulocyte % (Auto) 1, Neutrophils (%) (Auto) 69, Lymphocytes (%) (Auto) 15, Monocytes (%) (Auto) 13, Eosinophils (%) (Auto) 2, Basophils (%) (Auto) 1, Neutrophils # (Auto) 6.2, Lymphocytes # (Auto) 1.3, Monocytes # (Auto) 1.2, Eosinophils # (Auto) 0.2, Basophils # (Auto) 0.1, Immature Granulocyte # (Auto) 0.1, Percent Immature Platelet Fraction 2.8, Sodium Level 134, Potassium Level 4.2, Chloride Level 105, Carbon Dioxide Level 21, Anion Gap 8, Blood Urea Nitrogen 15, Creatinine 0.77, Estimat Glomerular Filtration Rate 84, BUN/Creatinine Ratio 19, Glucose Level 152, Calcium Level 9.5, Corrected Calcium 10.1, Total Bilirubin 6.3, Aspartate Amino Transf (AST/SGOT) 46, Alanine Aminotransferase (ALT/SGPT) 26, Alkaline Phosphatase 53, Total Protein 5.6, Albumin 3.2 10/26/21 05:40: White Blood Count 6.2, Red Blood Count 3.14, Hemoglobin 10.8, Hematocrit 32, Mean Corpuscular Volume 101, Mean Corpuscular Hemoglobin 34, Mean Corpuscular Hemoglobin Concent 34, Red Cell Distribution Width 13.0, Platelet Count 99, Mean Platelet Volume 10.0, Immature Granulocyte % (Auto) 1, Neutrophils (%) (Auto) 64, Lymphocytes (%) (Auto) 14, Monocytes (%) (Auto) 15, Eosinophils (%) (Auto) 6, Basophils (%) (Auto) 1, Neutrophils # (Auto) 4.0, Lymphocytes # (Auto) 0.9, Monocytes # (Auto) 0.9, Eosinophils # (Auto) 0.4, Basophils # (Auto) 0.0, Immature Granulocyte # (Auto) 0.1, Percent Immature Platelet Fraction 2.7 10/26/21 06:00: Sodium Level 137, Potassium Level 4.0, Chloride Level 107, Carbon Dioxide Level 22, Anion Gap 8, Blood Urea Nitrogen 14, Creatinine 0.70, Estimat Glomerular Filtration Rate 95, BUN/Creatinine Ratio 20, Glucose Level 127, Calcium Level 9.5, Corrected Calcium 10.3, Total Bilirubin 5.6, Aspartate Amino Transf (AST/SGOT) 38, Alanine Aminotransferase (ALT/SGPT) 31, Alkaline Phosphatase 63, Total Protein 5.4, Albumin 3.0 10/26/21 11:00: Urine Color LIN, Urine Clarity CLEAR, Urine pH 6.0, Urine Specific [place] 1.025, Urine Protein NEGATIVE, Urine Glucose (UA) TRACE, Urine Ketones NEGATIVE, Urine Nitrite POSITIVE, Urine Bilirubin 2+, Urine Urobilinogen >=8.0, Urine Leukocyte Esterase TRACE, Urine RBC (Auto) NEGATIVE, Urine RBC NONE, Urine WBC 2-5, Urine Squamous Epithelial Cells RARE, Urine Crystals PRESENT, Urine Calcium Oxalate Crystals FEW, Urine Bacteria MODERATE, Urine Casts NONE, Urine Mucus NEGATIVE, Urine Culture Indicated YES 11/02/21 07:09: White Blood Count 5.5, Red Blood Count 3.05, Hemoglobin 10.6, Hematocrit 34, Mean Corpuscular Volume 112, Mean Corpuscular Hemoglobin 35, Mean Corpuscular He moglobin Concent 31, Red Cell Distribution Width 13.4, Platelet Count 117, Mean Platelet Volume 10.3, Immature Granulocyte % (Auto) 0, Neutrophils (%) (Auto) 67, Lymphocytes (%) (Auto) 19, Monocytes (%) (Auto) 9, Eosinophils (%) (Auto) 4, Basophils (%) (Auto) 0, Neutrophils # (Auto) 3.7, Lymphocytes # (Auto) 1.1, Monocytes # (Auto) 0.5, Eosinophils # (Auto) 0.2, Basophils # (Auto) 0.0, Immature Granulocyte # (Auto) 0.0, Percent Immature Platelet Fraction 2.7, Sodium Level 138, Potassium Level 4.2, Chloride Level 109, Carbon Dioxide Level 22, Anion Gap 7, Blood Urea Nitrogen 12, Creatinine 0.72, Estimat Glomerular Filtration Rate 92, BUN/Creatinine Ratio 17, Glucose Level 129, Calcium Level 9.7, Corrected Calcium 10.7, Total Bilirubin 3.3, Aspartate Amino Transf (AST/SGOT) 46, Alanine Aminotransferase (ALT/SGPT) 32, Alkaline Phosphatase 75, Total Protein 5.4, Albumin 2.8 Discharge Home Medications: Active Scripts Active Tramadol HCl 50 Mg Tablet 50 Mg PO TID PRN HYDROcodone/APAP 5 MG/325 MG TAB (Acetaminophen/Hydrocodone Bitart) 1 Tab Tab 1 Ea PO Q4H PRN Xarelto Tablet (Rivaroxaban) 20 Mg Tablet 20 Mg PO DAILY@1700 Take 1 pill daily after completing the 15mg PO BID regimen for 2 weeks Xarelto Tablet (Rivaroxaban) 15 Mg Tablet 15 Mg PO BID@0700,1900 Reported Benadryl Allergy (Diphenhydramine HCl) 25 Mg Tablet 25-50 Mg PO Q6H PRN Metoprolol Succinate 50 Mg Tab.er.24h 25 Mg PO DAILY TAKES OF A 50MG TAB Sertraline HCl 100 Mg Tablet 100 PO DAILY Melatonin 10 Mg Tablet 10 Mg PO HS PRN Omeprazole 20 Mg Capsule.dr 20 Mg PO DAILY Metformin HCl 500 Mg Tablet 500 Mg PO HS Spironolactone 50 Mg Tablet 50 Mg PO DAILY Vitamin D3 (Cholecalciferol (Vitamin D3)) 125 Mcg Capsule 125 Mcg PO DAILY Ferrous Sulfate 325 Mg Tablet.dr 325 Mg PO HS Zetia (Ezetimibe) 10 Mg Tablet 10 Mg PO DAILY Vitamin C (Ascorbate Calcium) 500 Mg Tablet 500 Mg PO HS Levothyroxine Sodium 100 Mcg Tablet 100 Mcg PO DAILY Instructions to patient/family Please see electronic discharge instructions given to patient. Diagnosis/Problems Diagnosis/Problems (1) Status post left knee replacement (2) Non-insulin dependent type 2 diabetes mellitus Status: Chronic (3) HTN (hypertension) Status: Chronic (4) NGUYEN (obstructive sleep apnea) Status: Chronic (5) Hypothyroidism Status: Chronic (6) Pacemaker (7) Chronic diastolic heart failure CULLEN TILLMAN DO Nov 04, 2021 05:56
[2021-11-04] MEDS: MULTIVIT W/MINERALS TAB (THERAGRAN M) PO SCH (06:46)
[2021-11-04] MEDS: LEVOTHYROXINE 100 MCG (LEVOTHROID) TAB PO SCH (06:46)
[2021-11-04] MEDS: RIVAROXABAN 15 MG TABLET (XARELTO) PO SCH (06:46)
[2021-11-04 07:45] VITALS: BP 135/63
--- NOTE | 2021-11-04 08:25 | Therapy Team Discharge Summary ---
Therapy Discharge Summary Discharge Recommendations Date of Discharge Occupational Therapy Pt admitted to ARU s/p L TKA. At [facility], pt was using SPC for functional mobility independently, she was independent with eating, oral care, toileting, and UE dressing. Pt required assistance threading LEs into pants and completing footwear, and had supervision during showers. Upon initial evaluation, pt was independent with eating and oral care, min A UE dressing, and total assist with showering, LE dressing, footwear and toileting. OT txs focused on increasing BUE strength and activity tolerance, education on AE, and increasing independence with ADLs and functional mobility. At discharge, pt was independent with eating, oral care and toileting, required set up with showering, UE/LE dressing, and min A with footwear when donning [place], set up assist with just gripper socks. Pt made good progress towards goals, attaining all goals except upper body dressing and footwear. Pt to discharge from facility, d/c from OT. Decreased Activ Tolerance, Decreased UE Strength, Impaired Funct Balance, Impaired I ADL's, Impaired Self-Care Skills PT [facility] Goals [facility] Goals PT [facility] Goals Time Frame: Nov 13, 2021 Roll Left to Right (QC): 6 Sit to Lying (QC): 4 (SBA) Lying-Sitting on Side/Bed(QC): 4 (SBA) Sit to Stand (QC): 5 Chair/[id number]-Teqjk Xfer(QC): 5 Car Transfer (QC): 3 Does the Patient Walk: Yes Walk 10 feet (QC): 5 Walk 10ft-Uneven Surface(QC): 4 Walk 50ft with 2 Turns (QC): 5 Walk 150 ft (QC): 5 Wheel 50 feet with 2 turns (QC: 4 1 Step (curb) (QC): 4 4 Steps (QC): 4 12 Steps (QC): 88 Picking up an Object (QC): 5 OT [facility] Goals [facility] Goals Time Frame: Nov 20, 2021 Eating (QC): 6 (met) Oral Hygiene (QC): 6 (met) Shower/Bathe Self (QC): 4 (met) Upper Body Dressing (QC): 6 (not met) Lower Body Dressing (QC): 4 (met) On/Off Footwear (QC): 4 (not met) Toileting Hygiene (QC): 6 (met) Toilet/Commode Transfer (QC): 5 Additional Goals: 1-Demonstrate ADL Tasks, 2-Verbalize Understanding, 3- ImproveStrength/Shanice 1=Demonstrate adherence to instructed precautions during ADL tasks. 2=Patient will verbalize/demonstrate understanding of assistive devices/modifications for ADL. 3=Patient will improve strength/tolerance for activity to enable patient to perform ADL's. SONYA PRESTON OT Nov 04, 2021 08:24
[2021-11-04] MEDS: DOCUSATE SODIUM 100 MG (COLACE) CAP PO SCH (09:00)
[2021-11-04] MEDS: polyethylene glycoL POWDER 17 GM (MIRALAX) PACK PO SCH (09:00)
[2021-11-04] MEDS: SENNA W/DOCUSATE (SENOKOT S) TABLET PO SCH (09:00)
[2021-11-04] MEDS: SERTRALINE 100 MG (ZOLOFT) TAB PO SCH (09:18)
[2021-11-04] MEDS: ASPIRIN E.C. 81 MG (ECOTRIN) TAB PO SCH (09:18)
[2021-11-04] MEDS: meTOproloL SUCCINATE 50 MG (TOPROL XL) TAB PO SCH (09:18)
[2021-11-04 11:00] VITALS: BP 135/63
--- NOTE | 2021-11-04 13:34 | Therapy Team Discharge Summary ---
Therapy Discharge Summary Discharge Recommendations Date of Discharge Nov 04, 2021 at 11:04 Physical Therapy Patient came to rehab following a left TKA. Upon evaluation patient performed rolling with min assist, supine <-> sit max assist, sit <-> stand mod assist, transfers min assist, patient is not safe to perform a car transfer at this time, ambulated 8' with a rolling walker with CGA, and could propel a manual WC 50' with min assist. Patient has been performing bed mobility and transfer training, balance and endurance training, functional strengthening, stair tr aining, gait training, and education. Patient has made good progress and has met all of her terminal operator goals except for a car transfer because there just isnt enough room for patient to get into it, and picking up an object from the floor. Patient now, performs bed mobility and transfers with independence, ambulates 150' with a rolling walker with independence (including 50' with at least 2 turns of 90 degrees but needs setup for ambulating 10' over an uneven surface), and can go up and down 4 step using 2 handrails with setup. Patient is being discharged from this facility today and will be discharged from PT at this time. Occupational Therapy Decreased Activ Tolerance, Decreased UE Strength, Impaired Funct Balance, Impaired I ADL's, Impaired Self-Care Skills PT [facility] Goals Manager [facility] Goals PT Manager [facility] Goals Time Frame: Nov 13, 2021 Roll Left to Right (QC): 6 Sit to Lying (QC): 4 (SBA) Lying-Sitting on Side/Bed(QC): 4 (SBA) Sit to Stand (QC): 5 Chair/Rso-wi-Hccwf Xfer(QC): 5 Car Transfer (QC): 3 Does the Patient Walk: Yes Walk 10 feet (QC): 5 Walk 10ft-Uneven Surface(QC): 4 Walk 50ft with 2 Turns (QC): 5 Walk 150 ft (QC): 5 Wheel 50 feet with 2 turns (QC: 4 1 Step (curb) (QC): 4 4 Steps (QC): 4 12 Steps (QC): 88 Picking up an Object (QC): 5 OT Manager [facility] Goals Skilled Nursing Goals Time Frame: Nov 20, 2021 Eating (QC): 6 Oral Hygiene (QC): 6 Shower/Bathe Self (QC): 4 Upper Body Dressing (QC): 6 Lower Body Dressing (QC): 4 On/Off Footwear (QC): 4 Toileting Hygiene (QC): 6 Toilet/Commode Transfer (QC): 5 Additional Goals: 1-Demonstrate ADL Tasks, 2-Verbalize Understanding, 3- ImproveStrength/Shanice 1=Demonstrate adherence to instructed precautions during ADL tasks. 2=Patient will verbalize/demonstrate understanding of assistive devices/modific ations for ADL. 3=Patient will improve strength/tolerance for activity to enable patient to perform ADL's. BRANDY ZAMUDIO PT Nov 04, 2021 13:34
[2021-11-20] MEDS ORDERED: RIVAROXABAN 20 MG TABLET (XARELTO) PO SCH (17:00)
== END 2021-11-04 11:04 | disposition home or self-care (01) | DRG 560 ==
PROVIDERS: ADMIT Internal Medicine; ATTEND Internal Medicine
DX: Z47.1 Aftercare following joint replacement surgery (principal); I50.32 Chronic diastolic (congestive) heart failure; K50.90 Crohn's disease, unspecified, without complications; Z68.44 Body mass index [BMI] 60.0-69.9, adult; I82.452 Acute embolism and thrombosis of left peroneal vein; N39.0 Urinary tract infection, site not specified; Z96.652 Presence of left artificial knee joint; I11.0 Hypertensive heart disease with heart failure; E11.9 Type 2 diabetes mellitus without complications; E78.00 Pure hypercholesterolemia, unspecified; F41.9 Anxiety disorder, unspecified; F32.A Depression, unspecified; E03.9 Hypothyroidism, unspecified; J30.9 Allergic rhinitis, unspecified; E61.1 Iron deficiency; G47.33 Obstructive sleep apnea (adult) (pediatric); R32 Unspecified urinary incontinence; E66.01 Morbid (severe) obesity due to excess calories; K74.69 Other cirrhosis of liver; K75.81 Nonalcoholic steatohepatitis (NASH); D69.59 Other secondary thrombocytopenia; B96.20 Unspecified Escherichia coli [E. coli] as the cause of diseases classified elsewhere; Z79.84 Long term (current) use of oral hypoglycemic drugs; Z88.1 Allergy status to other antibiotic agents; Z88.5 Allergy status to narcotic agent; Z88.0 Allergy status to penicillin; Z88.2 Allergy status to sulfonamides; Z88.7 Allergy status to serum and vaccine; Z88.8 Allergy status to other drugs, medicaments and biological substances; Z91.048 Other nonmedicinal substance allergy status
CPT/HCPCS: 36415; 80053; 81000; 85025; 87077; 87088; 87186

== ENCOUNTER → 2022-01-07 | Outpatient (CLI) | payer MEDICARE ==
[~2022-01-07] MED LIST changes: +RIVA15TA2 PO; +RIVA20TA2 PO; +TRM50T PO
== END ==
LOC: CARDFS 10:32
PROVIDERS: ATTEND Internal Medicine Cardiovascular Disease
DX: M79.89 Other specified soft tissue disorders (principal)
CPT/HCPCS: 93306

== ENCOUNTER 2022-03-03 22:29 | Emergency (ER) | payer MEDICARE, OTHER ==
[~2022-03-03] VITALS: Ht 157 cm; Wt 151.0 kg
[2022-03-03 22:54] VITALS: BP 129/69
[2022-03-03 23:15] LABS: CLARITY,URINE SL CLOUDY; COLOR,URINE ORANGE; GLUCOSE, URINE (UA) NEGATIVE (NEGATIVE); KETONES,URINE NEGATIVE (NEGATIVE); LEUKOCYTE ESTERASE ,URINE NEGATIVE (NEGATIVE); NITRITE,URINE POSITIVE (NEGATIVE); PH,URINE 5.5 (5-9); PROTEIN,URINE TRACE (NEGATIVE)
[2022-03-03 23:31] LABS: BILIRUBIN,URINE 1+ (NEGATIVE)
[2022-03-03 23:32] LABS: BACTERIA,URINE LARGE /HPF; CALCIUM OXALATE CRYSTALS,UR MODERATE /LPF
[2022-03-03] MEDS ORDERED: KETOROLAC 60 MG/2 ML VIAL IM STA (23:35)
[2022-03-03] MEDS ORDERED: TRAM-42 PO (23:44)
--- NOTE | 2022-03-03 23:44 | ED Back Pain ---
General Chief Complaint: Back Problems Stated Complaint: LOWER BACK PAIN Nursing Triage Note: pt presents with c/o lower back pain and spasms, denies injury. reports spasms started around 1600 today and have not stopped. reports taking 1.5 of her tizanidine without relief. reports she has been in PT for her left knee replacement she had in october. Source of Information: Patient History of Present Illness Date Seen by Provider: March 03, 2022 Time Seen by Provider: 23:00 Initial Comments PT ARRIVES VIA POV FROM HOME C/O "SEVERE BACK SPASMS" SINCE 1600 TODAY STATES SHE HAS BEEN HAVING "LITTLE TWINGES" IN HER LOW BACK FOR THE LAST COUPLE OF DAYS TODAY SHE WAS TRYING TO MOVE FROM SITTING TO STANDING POSITION AND "IT GRABBED HER" PAIN IS DIFFUSE ALL ACROSS LOWER BACK NO RADIATION OF PAIN PAIN IS WORST WITH POSITION CHANGES, ESPECIALLY FROM SIT TO STAND. ALSO WITH LAYING FLAT. NO PARESTHESIAS OR MOTOR DEFICITS PT TOOK 6 MG OF TIZANIDINE AT 1700 TONIGHT, NO RELIEF HAS NOT TAKEN ANYTHING ELSE FOR PAIN --STATES SHE DOES NOT HAVE ANYTHING ELSE FOR PAIN AT HOME. PT STATES SHE WAS DX WITH A KIDNEY STONE ABOUT A MONTH AGO, HAS NOT BEEN HAVING THOSE SYMPTOMS FOR A FEW WEEKS PT IS ON COUMADIN AND HER INR WAS 5.1 LAST TUESDAY, AND WAS 4.3 ON THIS PAST TUESDAY/2 DAYS AGO. STATES SHE IS STILL TAKING HER COUMADIN. STATES SHE WAS HAVING BLOOD IN HER URINE WITH THE KIDNEY STONE,BUT HAS NOT HAD ANY BLOOD IN AT LEAST A WEEK HAS NOT SEEN A UROLOGIST, STATES HER DR TOLD HER IT WAS SMALL ENOUGH THAT SHE SHOULD PASS IT ON HER OWN. NO PAIN/BURNING/DIFFICULTY URINATING. SHE HAD LEFT KNEE REPLACEMENT IN OCTOBER AND DEVELOPED A BLOOD CLOT IN HER LEFT LEG AFTER SURGERY AND HAS BEEN ON COUMADIN SINCE THEN. PT IS STILL IN PHYSICAL THERAPY FOR HER KNEE. NO NEW ACTIVITIES NO FALL OR RECENT INJURY TO BACK. PT HAS CHRONIC LEG EDEMA, AND IS ON SPIRONOLACTONE, AND TOOK LASIX FOR A FEW DAYS LAST WEEK ,THEN STOPPED IT. PT HAS A MULTITUDE OF OTHER CHRONIC MEDICAL PROBLEMS WELL. Other Comments PCP: [facility], DR. DORAN. Allergies and Home Medications Allergies Coded Allergies: COVID-19 (SARS-CoV-2) vaccine, meri (Unverified Allergy, Severe, Anaphylaxis, 10/14/21) erythromycin base (Unverified Allergy, Severe, Hives, 10/14/21) Penicillins (Verified Allergy, Intermediate, HIVES, 10/14/21) Sulfa (Sulfonamide Antibiotics) (Verified Allergy, Intermediate, HIVES, 10/14/21) adhesive tape (Verified Allergy, Intermediate, HIVES, 10/14/21) tetanus and diphtheria toxoids (Verified Allergy, Intermediate, HIVES, 10/14/21) Influenza Virus Vaccines (Verified Adverse Reaction, Mild, NAUSEA, 10/14/21) atorvastatin (Verified Adverse Reaction, Mild, NAUSEA, 10/14/21) hydromorphone (Verified Adverse Reaction, Mild, hallucinations, 10/14/21) morphine (Verified Adverse Reaction, Mild, hallcination, 10/14/21) simvastatin (Verified Adverse Reaction, Mild, NAUSEA, 10/14/21) Patient Home Medication List Home Medication List Reviewed: Yes Ascorbate Calcium (Vitamin C) 500 Mg Tablet, 500 MG PO HS, (Reported) Entered as Reported by: PAULINA ALCOCER on 05/11/17 1128 Cholecalciferol (Vitamin D3) (Vitamin D3) 125 Mcg Capsule, 125 MCG PO DAILY, (Reported) Entered as Reported by: SHAD HELTON on 10/21/21 0914 Diphenhydramine HCl (Benadryl Allergy) 25 Mg Tablet, 25-50 MG PO Q6H PRN for ALLERGY SYMPTOMS, (Reported) Entered as Reported by: JUAN NEUMANN on 10/21/21 1449 Ezetimibe (Zetia) 10 Mg Tablet, 10 MG PO DAILY, (Reported) Entered as Reported by: PAULINA ALCOCER on 05/11/17 1130 Ferrous Sulfate (Ferrous Sulfate) 325 Mg Tablet.dr, 325 MG PO HS, (Reported) Entered as Reported by: PAULINA ALCOCER on 10/17/19 1027 Hydrocodone Bit/Acetaminophen (HYDROcodone/APAP 5 MG/325 MG TAB) 1 Tab Tab, 1 EA PO Q4H PRN for PAIN-SEVERE (8-10) Prescribed by: CULLEN TILLMAN on 11/04/21 0555 Levothyroxine Sodium (Levothyroxine Sodium) 100 Mcg Tablet, 100 MCG PO DAILY, (Reported) Entered as Reported by: TIMOTHY HERNANDES on 12/02/15 1335 Melatonin (Melatonin) 10 Mg Tablet, 10 MG PO HS PRN for SLEEP, (Reported) Entered as Reported by: JUAN NEUMANN on 10/21/21 1446 Metformin HCl (Metformin HCl) 500 Mg Tablet, 500 MG PO HS, (Reported) Entered as Reported by: SHAD HELTON on 10/21/21 0914 Metoprolol Succinate (Metoprolol Succinate) 50 Mg Tab.er.24h, 25 MG PO DAILY, (Reported) Entered as Reported by: JUAN NEUMANN on 10/21/21 1446 Omeprazole (Omeprazole) 20 Mg Capsule.dr, 20 MG PO DAILY, (Reported) Entered as Reported by: SHAD HELTON on 10/21/21 09 Rivaroxaban (Xarelto Tablet) 15 Mg Tablet, 15 MG PO BID@0700,1900 Prescribed by: CULLEN TILLMAN on 11/04/21 0555 Rivaroxaban (Xarelto Tablet) 20 Mg Tablet, 20 MG PO DAILY@1700 Prescribed by: CULLEN TILLMAN on 11/04/21 0555 Sertraline HCl (Sertraline HCl) 100 Mg Tablet, 100 PO DAILY, (Reported) Entered as Reported by: JUAN NEUMANN on 10/21/21 144 Spironolactone (Spironolactone) 50 Mg Tablet, 50 MG PO DAILY, (Reported) Entered as Reported by: SHAD HELTON on 10/21/21 0914 Tramadol HCl (Tramadol HCl) 50 Mg Tablet, 50 MG PO TID PRN for PAIN-MODERATE (5- 7) Prescribed by: CULLEN TILLMAN on 11/04/21 0555 Tramadol HCl (Ultram) 50 Mg Tablet, 50 MG PO Q4H Prescribed by: CECI JOHNSON on 03/03/22 0425 Review of Systems Constitutional: no symptoms reported Respiratory: no symptoms reported Cardiovascular: no symptoms reported Gastrointestinal: no symptoms reported Genitourinary: see HPI Musculoskeletal: see HPI Skin: no symptoms reported Psychiatric/Neurological: No Symptoms Reported Past Orvqgnd-Zyepex-Rmwigs Hx Patient Social History Tobacco Use?: No Substance use?: No Alcohol Use?: No Immunizations Up To Date Influenza Vaccine Up-to-Date: No; Not Current First/Initial COVID19 Vaccinat: 05/2021 Second COVID19 Vaccination Hermes: 06/2021 Third COVID19 Vaccination Date: 05/2021 Seasonal Allergies Seasonal Allergies: Yes Past Medical History Surgery/Hospitalization HX: END STAGE LIVER DISEASE PACEMAKER PLACED 12/2020 Surgeries: Yes (right tkr x2, JUNIE HEEL SPUR, mass removed from colon, COLECTOMY, R knee sco) Abdominal, Appendectomy, Bowel Surgery, Gallbladder, Hysterectomy, Joint Replacement, Orthopedic, Pacemaker, Thyroidectomy Respiratory: Yes (uses cpap) Sleep Apnea Currently Using CPAP: Yes Currently Using BIPAP: No Cardiac: Yes Chronic Edema/Swelling, Deep Vein Thrombosis, High Cholesterol, Hypertension, Irregular Heartbeat Neurological: No Reproductive Disorders: No TOP STITCHER History: Hysterectomy, Menopausal Sexually Transmitted Disease: No HIV/AIDS: No Genitourinary: No Gastrointestinal: Yes (benign colon mass removed, enlarged spleen; END STAGE LIVER FAILURE) Liver Disease/Jaundice, Chronic Diarrhea, Cirrhosis Musculoskeletal: Yes Osteoporosis, Arthritis, Chronic Back Pain Endocrine: Yes (ORAL MEDICATIONS FOR DIABETES, MORBID OBESITY) Hypothyroidsim, Diabetes, Non-Insulin dep HEENT: Yes (GLASSES) Loss of Vision: Denies Hearing Impairment: Denies Cancer: No Psychosocial: Yes Anxiety, Depression Integumentary: No Blood Disorders: Yes (HX ANEMIA) Adverse Reaction/Blood Tranf: No (HAS HAD BLOOD WITH NO REACTION) Family Medical History No Pertinent Family Hx PAST SURGICAL HISTORY: -LEFT TOTAL KNEE REPLACEMENT 10/2021. DEVELOPED DVT IN LEFT LEG POST OP -RIGHT KNEE REPLACEMENT X 2 -RIGHT KNEE SCOPE -RIGHT KNEE SCOPE -RIGHT ROTATOR CUFF REPAIR -REMOVAL OF BENIGN COLON MASS -SMALL BOWEL RESECTION FOR BOWEL OBSTRUCTION -HYSTERECTOMY -APPENDECTOMY -CHOLECYSTECTOMY -THYROIDECTOMY -BILATERAL HEEL SPURS REMOVED -LOOP RECORDER PLACED 08/2020 FOR SYNCOPAL EPISODES - DUAL CHAMBER PACEMAKER PLACED BY DR. CAT 12/2020 FOR SYNCOPE WITH PAUSES Physical Exam Vital Signs Vital Signs - First Documented 03/03/22 22:54 Pulse 60 Resp 18 B/P (MAP) 129/69 (89) Pulse Ox 96 O2 Delivery Room Air Capillary Refill : Height, Weight, BMI Height: 5'2.00" Weight: 306lbs. 0.0oz. 138.048334li; 61.00 BMI Method:Stated General Appearance: No Apparent Distress, WD/WN, Obese, Other (PT VERY DROWSY AND FALLS ASLEEP MID-SENTENCES. DOES NOT APPEAR TO BE IN ANY DISCOMFORT OR DISTRESS. PT WAS ABLE TO WALK INTO ER ON HER OWN. ) Cardiovascular: Regular Rate, Rhythm, No Murmur Respiratory: Normal Breath Sounds Gastrointestinal: Non Tender, Soft Back: Other (DIFFUSE LOWER BACK TENDERNESS) Neurologic/Psychiatric: Alert, Oriented x3, No Motor/Sensory Deficits Skin: Warm/Dry Progress/Results/Core Measures Results/Orders Lab Results Laboratory Tests Test 03/03/22 22:58 Range/Units Urine Color ORANGE Urine Clarity SL CLOUDY Urine pH 5.5 5-9 Urine Specific [place] >=1.030 1.016-1.022 Urine Protein TRACE H NEGATIVE Urine Glucose (UA) NEGATIVE NEGATIVE Urine Ketones NEGATIVE NEGATIVE Urine Nitrite POSITIVE H NEGATIVE Urine Bilirubin 1+ H NEGATIVE Urine Urobilinogen 1.0 < = 1.0 MG/DL Urine Leukocyte Esterase NEGATIVE NEGATIVE Urine RBC (Auto) 1+ H NEGATIVE Urine RBC 5-10 H /HPF Urine WBC 5-10 H /HPF Urine Squamous Epithelial Cells 2-5 /HPF Urine Crystals PRESENT H /LPF Urine Calcium Oxalate Crystals MODERATE H /LPF Urine Bacteria LARGE H /HPF Urine Casts PRESENT /LPF Urine Hyaline Casts 10-25 H /LPF Urine Mucus NEGATIVE /LPF Urine Culture Indicated YES My Orders Orders - CECI JOHNSON DO Ua Culture If Indicated (03/03/22 22:45) Urine Culture (03/03/22 22:58) Ceftriaxone (Rocephin) (03/03/22 23:45) Ketorolac Injection (Toradol Injection) (03/03/22 23:35) Lidocaine 1% Inj 20 Ml (Xylocaine 1% Inj (03/03/22 23:45) Rx-Tramadol Hcl (Rx-Ultram) (03/03/22 23:45) Medications Given in ED Current Medications Medications Dose Ordered Sig/Sandi Route Start Time Stop Time Status Last Admin Dose Admin Ceftriaxone Sodium 1,000 mg ONCE ONCE IM 03/03/22 23:45 03/03/22 23:46 DC 03/03/22 23:48 1,000 MG Lidocaine HCl 2.1 ml ONCE ONCE INJ 03/03/22 23:45 03/03/22 23:46 DC 03/03/22 23:48 2.1 ML Vital Signs/I&O 03/03/22 22:54 Pulse 60 Resp 18 B/P (MAP) 129/69 (89) Pulse Ox 96 O2 Delivery Room Air Blood Pressure Mean: 89 Progress Progress Note : Progress Note OFFERED TO DO LAB TESTS AND CT SCAN AND PT DECLINES--STATING SHE JUST HAD LAB 2 DAYS AGO, AND RECENTLY HAD A CT SCAN. THESE TESTS WERE NOT DONE HERE PT JUST WANTS PAIN MEDICATION. Departure Impression Primary Impression: Acute exacerbation of chronic low back pain Additional Impression: UTI (urinary tract infection) Disposition: HOME, SELF-CARE Condition: Stable Departure-Patient Inst. Decision time for Depature: 23:45 Referrals: BRENTON DORAN MD (PCP) Primary Care Physician Patient Instructions: Low Back Pain in Adults, Urinary Tract Infections in Adults Add. Discharge Instructions: CONTINUE YOUR TIZANIDINE UP TO THREE TIMES A DAY. CONTINUE YOUR REGULAR MEDICATIONS PRESCRIBED MOIST HEAT TO BACK AT 20 MINUTE INTERVALS INCREASE YOUR CLEAR LIQUID INTAKE FOLLOW UP WITH YOUR DR IN 2-3 DAYS FOR FURTHER CARE All discharge instructions reviewed with patient and/or family. Voiced understanding. Scripts Tramadol HCl (Ultram) 50 Mg Tablet 50 MG PO Q4H for Pain, #20 TAB Prov: CECI JOHNSON DO 03/03/22 CECI JOHNSON DO March 03, 2022 23:44
[2022-03-03] MEDS ORDERED: cefTRIAXone 1,000 MG VIAL IM ONE (23:45)
[2022-03-03] MEDS ORDERED: LIDOCAINE 1% INJ 20 ML VIAL INJ ONE (23:45)
== END 2022-03-04 00:08 | disposition home or self-care (01) ==
LOC: EDUNIT# 22:29 → ER 22:31
DX: M54.50 Low back pain, unspecified (principal); N39.0 Urinary tract infection, site not specified; G47.30 Sleep apnea, unspecified; E66.01 Morbid (severe) obesity due to excess calories; Z68.44 Body mass index [BMI] 60.0-69.9, adult; Z99.89 Dependence on other enabling machines and devices; Z87.442 Personal history of urinary calculi; Z96.652 Presence of left artificial knee joint; Z86.718 Personal history of other venous thrombosis and embolism; Z79.01 Long term (current) use of anticoagulants
CPT/HCPCS: 81000; 87077; 87088; 99284

== ENCOUNTER → 2022-03-17 | Outpatient (CLI) | payer MEDICARE ==
[~2022-03-17] MED LIST changes: +TRAM-42 PO
[2022-03-17 15:12] LABS: BASOPHILS % (AUTO) 1 % (0-10); MEAN CORPUSCULAR VOLUME 100 fL (80-99); MONOCYTES # (AUTO) 0.5 10^3/uL (0.0-1.0)
[2022-03-17 15:13] LABS: EOSINOPHILS # (AUTO) 0.2 10^3/uL (0.0-0.3); EOSINOPHILS % (AUTO) 4 % (0-10); HEMATOCRIT 38 % (35-52); HEMOGLOBIN 12.7 g/dL (11.5-16.0); LYMPHOCYTES # (AUTO) 1.1 10^3/uL (1.0-4.0); LYMPHOCYTES % (AUTO) 17 % (12-44); MEAN CORPUSCULAR HEMOGLOBIN 33 pg (25-34); MEAN CORPUSCULAR HGB CONC 33 g/dL (32-36); MONOCYTES % (AUTO) 8 % (0-12); NEUTROPHILS # (AUTO) 4.3 10^3/uL (1.8-7.8); NEUTROPHILS % (AUTO) 70 % (42-75); PLATELET COUNT 81 10^3/uL (130-400); WHITE BLOOD COUNT 6.1 10^3/uL (4.3-11.0)
[2022-03-17 15:35] LABS: ALBUMIN 3.6 GM/DL (3.2-4.5); BILIRUBIN,TOTAL 2.9 MG/DL (0.1-1.0); CALCIUM 10.8 MG/DL (8.5-10.1); CREATININE SERUM 1.01 MG/DL (0.60-1.30); TOTAL PROTEIN 6.6 GM/DL (6.4-8.2)
== END ==
LOC: LAB 14:42
PROVIDERS: ATTEND Family Medicine
DX: N28.9 Disorder of kidney and ureter, unspecified (principal); E83.52 Hypercalcemia
CPT/HCPCS: 36415; 80053; 83519; 83880; 84155; 84165; 85025

== ENCOUNTER → 2022-05-14 | Outpatient (CLI) | payer MEDICARE ==
--- NOTE | 2022-05-14 15:41 | Diagnostic Imaging Report ---
CT CHEST WO TECHNIQUE: Multiple contiguous axial images were obtained through the chest without the use of intravenous contrast. All CT scans use one or more of the following dose optimizing techniques: automated exposure control, MA and/or KvP adjustment based on a patient size and exam type, or iterative reconstruction. INDICATION: Newly diagnosed liver cancer. Coughing and shortness of air. COMPARISON: None available FINDINGS: Lungs and airway: No abnormality in the trachea. No pneumonia or edema. There are no suspicious pulmonary nodules. Calcified nodule in the right lung base is compatible with old granulomatous infection. Pleura: No pleural effusion or pneumothorax. Heart and mediastinum: Visualized portions of the thyroid are normal. No supraclavicular or axillary lymphadenopathy. No mediastinal or hilar lymphadenopathy. Cardiomegaly without pericardial effusion. Left pectoral transvenous pacemaker has electrodes within the right ventricle and right atrium. Upper abdomen: Nodular appearance of the liver suggestive of cirrhosis. The spleen is enlarged and this could be due to portal hypertension. Musculoskeletal: No worrisome focal osseous lesions. IMPRESSION: 1. No metastatic disease in the chest. 2. Cirrhosis with probable portal hypertension. Dictated by: Dictated on workstation # [id number]
== END ==
LOC: RAD 09:43
PROVIDERS: ATTEND Nurse Practitioner Family
DX: Z00.00 Encounter for general adult medical examination without abnormal findings (principal); Z12.9 Encounter for screening for malignant neoplasm, site unspecified; C22.0 Liver cell carcinoma; K74.60 Unspecified cirrhosis of liver; K75.81 Nonalcoholic steatohepatitis (NASH)
CPT/HCPCS: 71250

== ENCOUNTER 2022-06-12 23:19 | Inpatient (IN) | payer MEDICARE ==
[~2022-06-12] VITALS: Ht 157.5 cm; Wt 166.7 kg
[2022-06-13] MEDS ORDERED: NS IV 1000 ML 1,000 ML IV SCH
[2022-06-13 00:16] LABS: ABG BASE EXCESS -6.8 MMOL/L (-2.5-2.5); ABG OXYGEN SATURATION 100 % (94-100); ABG PCO2 30 MMHG (35-45); ABG PH 7.38 (7.37-7.43); ABG PO2 124 MMHG (79-93); ALLENS TEST YES-POS
[2022-06-13 00:17] LABS: INSPIRED O2 ROOM AIR; PATIENT TEMP 38.3; VENTILATOR NO
[2022-06-13] MEDS ORDERED: IBUPROFEN 800 MG (MOTRIN) TAB PO ONE (00:30)
[2022-06-13 00:44] LABS: BASOPHILS % (AUTO) 0 % (0-10); EOSINOPHILS % (AUTO) 0 % (0-10); HEMOGLOBIN 11.4 g/dL (11.5-16.0); MEAN CORPUSCULAR HEMOGLOBIN 36 pg (25-34)
[2022-06-13 00:46] LABS: HEMATOCRIT 33 % (35-52); LYMPHOCYTES # (AUTO) 0.6 10^3/uL (1.0-4.0); LYMPHOCYTES % (AUTO) 5 % (12-44); MEAN CORPUSCULAR HGB CONC 34 g/dL (32-36); MEAN CORPUSCULAR VOLUME 105 fL (80-99); MEAN PLATELET VOLUME 11.6 fL (9.0-12.2); MONOCYTES # (AUTO) 1.4 10^3/uL (0.0-1.0); MONOCYTES % (AUTO) 12 % (0-12); NEUTROPHILS # (AUTO) 9.5 10^3/uL (1.8-7.8); NEUTROPHILS % (AUTO) 82 % (42-75); PLATELET COUNT 52 10^3/uL (130-400); WHITE BLOOD COUNT 11.5 10^3/uL (4.3-11.0)
[2022-06-13 00:48] LABS: CLARITY,URINE CLEAR; COLOR,URINE ORANGE; GLUCOSE, URINE (UA) NEGATIVE (NEGATIVE); KETONES,URINE NEGATIVE (NEGATIVE); LEUKOCYTE ESTERASE ,URINE 2+ (NEGATIVE); NITRITE,URINE POSITIVE (NEGATIVE); PH,URINE 5.5 (5-9); PROTEIN,URINE TRACE (NEGATIVE)
[2022-06-13 01:07] LABS: CHLORIDE 109 MMOL/L (98-107); POTASSIUM 3.9 MMOL/L (3.6-5.0); SODIUM 138 MMOL/L (135-145)
[2022-06-13 01:08] LABS: ALBUMIN 3.3 GM/DL (3.2-4.5)
[2022-06-13 01:09] LABS: AMPHETAMINE SCREEN, URINE NEGATIVE (NEGATIVE); BARBITURATE SCREEN URINE NEGATIVE (NEGATIVE); BENZODIAZEPINES SCREEN URINE NEGATIVE (NEGATIVE); CANNABINOID SCREEN, URINE NEGATIVE (NEGATIVE); COCAINE SCREEN URINE NEGATIVE (NEGATIVE); METHADONE STAT NEGATIVE (NEGATIVE); OPIATE SCREEN URINE POSITIVE (NEGATIVE); OXYCODONE STAT NEGATIVE (NEGATIVE); PROPOXYPHENE STAT NEGATIVE (NEGATIVE); TRICYCLIC ANTIDEPRESSANTS SCRE NEGATIVE (NEGATIVE)
[2022-06-13 01:09] LABS: AMYLASE 22 U/L (25-125); CALCIUM 10.4 MG/DL (8.5-10.1)
[2022-06-13 01:10] LABS: BACTERIA,URINE MODERATE /HPF; HYALINE CASTS, URINE 0-2 /LPF; WBC,URINE 25-50 /HPF
[2022-06-13 01:10] LABS: AMMONIA 42 UMOL/L (11-32); GLUCOSE 151 MG/DL (70-105); TOTAL PROTEIN 5.9 GM/DL (6.4-8.2)
[2022-06-13 01:11] LABS: CARBON DIOXIDE 15 MMOL/L (21-32)
[2022-06-13 01:14] LABS: ALKALINE PHOSPHATASE 78 U/L (40-136); CREATININE SERUM 1.02 MG/DL (0.60-1.30); GFR ESTIMATED 60
[2022-06-13 01:15] LABS: BUN/CREATININE RATIO 16
[2022-06-13] MEDS ORDERED: MEROPENEM 500 MG in NS (IVPB) 50 ML IV ONE (01:15)
[2022-06-13 01:17] LABS: ALANINE AMINOTRANSFERASE 36 U/L (0-55); FIBRIN DEGRADATION PRODUCTS 5.64 UG/ML (0.00-0.49); INR 1.6 (0.8-1.4); MAGNESIUM 1.5 MG/DL (1.6-2.4); PROTHROMBIN TIME PATIENT 19.3 SEC (12.2-14.7)
[2022-06-13 01:18] LABS: CREATINE KINASE 177 U/L (29-168); LIPASE 10 U/L (8-78)
[2022-06-13 01:22] LABS: ELLIPT/OVALOCYTES SLIGHT; LYMPHOCYTES % (MANUAL) 5 %; MONOCYTES % (MANUAL) 15 %; NEUTROPHILS % (MANUAL) 80 %
[2022-06-13 01:25] LABS: ACETAMINOPHEN < 10 UG/ML (10-30); CREATINE KINASE MB 3.2 NG/ML (<6.6); ERYTHROCYTE SEDIMENTATION RATE 19 MM/HR (0-30)
[2022-06-13 01:38] LABS: TSH (THYROID ANALYZER) 0.79 UIU/ML (0.35-4.94)
[2022-06-13] MEDS ORDERED: ENOXAPARIN 100 MG/1 ML (LOVENOX) SYR SC ONE (02:15)
[2022-06-13] MEDS ORDERED: ENOXAPARIN 60 MG/0.6 ML (LOVENOX) SYR SC ONE (02:15)
[2022-06-13] MEDS ORDERED: NS IV 500 ML 500 ML IV PRN (04:00)
[2022-06-13] MEDS ORDERED: morphine INJ 4 MG/ML 1 ML (VIAL/SYRINGE) IV PRN (04:15)
[2022-06-13] MEDS ORDERED: NITROGLYCERIN 0.4 MG SL TABS BTL 25'S SL PRN (04:15)
[2022-06-13] MEDS ORDERED: EPINEPHrine 1 MG INJECTION 4 MG in NS (IVPB) 248 ML IV SCH (04:15)
[2022-06-13] MEDS: NOREPINEPHRINE 8 MG/250 ML 250 ML IV SCH ×3 (04:52→21:33)
[2022-06-13] MEDS: VASOPRESSIN INJECTION 20 UNIT in NS (IVPB) 100 ML IV SCH ×2 (04:53→15:44)
[2022-06-13] MEDS: NS IV 1000 ML 1,000 ML IV SCH ×3 (05:15→16:56)
[2022-06-13 05:16] LABS: TRIGLYCERIDES 70 MG/DL (<150); VLDL CHOLESTEROL 14 MG/DL (5-40)
[2022-06-13 05:21] LABS: CHOLESTEROL 93 MG/DL (< 200)
[2022-06-13 05:22] LABS: HDL CHOLESTEROL 40 MG/DL (40-60)
[2022-06-13] MEDS: MAGNESIUM 1 GM/100 ML IVPB 100 ML IV SCH ×3 (05:25→06:44)
[2022-06-13] MEDS: POTASSIUM CL 10MEQ/50ML IVPB 50 ML IV SCH (06:31)
[2022-06-13] MEDS: KCL 20 MEQ TAB (K-DUR) PO SCH (06:44)
--- NOTE | 2022-06-13 06:47 | History & Physical-Hospitalist ---
History of Present Illness HPI/Chief Complaint Chief complaint: Altered mental status due to sepsis from UTI and gram-negative bacteremia with cirrhosis and chronic bilirubinemia HPI: This is a 66-year-old female with a past medical history of cirrhosis from fatty liver with morbid obesity BMI 67 who recently had ablation of hepatocellular carcinoma at last week who presented to ER with weakness and fever found to have UTI and pneumonia. Patient remains very borderline critically ill due to chronic liver dysfunction. At this current time she is having rigors while I am examining her. Blood cultures are positive for gram- negative bacteria. Meropenem was initiated initially broad-spectrum. Elevated troponin is likely type II NSTEMI per Dr. Thompson. Thrombocytopenia is a bleeding risk so unable to initiate high-dose Lovenox. Source: patient Exam Limitations: clinical condition Date Seen 06/13/22 Time Seen by a Provider: 10:30 Attending Physician Lona Vega MD PCP Admitting Physician: Sasha Tillman DO Attending Physician: Sasha Tillman DO Referring Physician Date of Admission Jun 13, 2022 at 01:45 Home Medications & Allergies Home Medications Reviewed patient Home Medication Reconciliation performed by pharmacy medication reconciliations loss control technician and/or nursing. Patients Allergies have been reviewed. Allergies Allergies Coded Allergies COVID-19 (SARS-CoV-2) vaccine, meri (Unverified Allergy, Severe, Anaphylaxis, 10/14/21) erythromycin base (Unverified Allergy, Severe, Hives, 10/14/21) Penicillins (Verified Allergy, Intermediate, HIVES, 10/14/21) Sulfa (Sulfonamide Antibiotics) (Verified Allergy, Intermediate, HIVES, 10/14/21) adhesive tape (Verified Allergy, Intermediate, HIVES, 10/14/21) tetanus and diphtheria toxoids (Verified Allergy, Intermediate, HIVES, 10/14/21) Influenza Virus Vaccines (Verified Adverse Reaction, Mild, NAUSEA, 10/14/21) atorvastatin (Verified Adverse Reaction, Mild, NAUSEA, 10/14/21) hydromorphone (Verified Adverse Reaction, Mild, hallucinations, 10/14/21) morphine (Verified Adverse Reaction, Mild, hallcination, 10/14/21) simvastatin (Verified Adverse Reaction, Mild, NAUSEA, 10/14/21) Past Uslmfqh-Tminkv-Yrfbep Hx Patient Social History Marrital Status: Employed/Student: retired Tobacco Use?: No Smoking Status: Never a Smoker Smokeless Tobacco Frequency: Never a User Use of E-Cig and/or Vaping dev: No Substance use?: No Alcohol Use?: No Pt feels they are or have been: No Immunizations Up To Date First/Initial COVID19 Vaccinat: 05/2021 Second COVID19 Vaccination Hermes: 06/2021 Tetanus Booster (TDap): More Than 5 Years Seasonal Allergies Seasonal Allergies: Yes Current Status status: No status: No Advance Directives: Yes Advance Directive Location: on record at Communicates: Verbally Primary Language: Spanish Preferred Spoken Language: Spanish Is interpretation needed?: No Sensory deficits: Vision impairment Implanted or Applied Medical D: Pacemaker Past Medical History Surgeries: Abdominal, Appendectomy, Bowel Surgery, Gallbladder, Hysterectomy, Joint Replacement, Orthopedic, Pacemaker, Thyroidectomy Sleep Apnea Currently Using CPAP: Yes Currently Using BIPAP: No Chronic Edema/Swelling, Deep Vein Thrombosis, High Cholesterol, Hypertension, Irregular Heartbeat 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 DEVELOPED DVT IN LEFT LEG POST OP -RIGHT KNEE REPLACEMENT X 2 -RIGHT KNEE SCOPE -RIGHT KNEE SCOPE -RIGHT ROTATOR CUFF REPAIR -REMOVAL OF BENIGN COLON MASS -SMALL BOWEL RESECTION FOR BOWEL OBSTRUCTION -HYSTERECTOMY -APPENDECTOMY -CHOLECYSTECTOMY -THYROIDECTOMY -BILATERAL HEEL SPURS REMOVED -LOOP RECORDER PLACED 08/2020 FOR SYNCOPAL EPISODES - DUAL CHAMBER PACEMAKER PLACED BY DR. THOMPSON 12/2020 FOR SYNCOPE WITH PAUSES Review of Systems Constitutional: see HPI, dizziness, fever, malaise, weakness EENTM: no symptoms reported Respiratory: no symptoms reported Cardiovascular: no symptoms reported Gastrointestinal: abdominal pain, nausea, vomiting Genitourinary: decreased output Musculoskeletal: back pain, joint pain Skin: no symptoms reported Psychiatric/Neurological: Anxiety, Depressed All Other Systems Reviewed Negative Unless Noted: Yes Physical Exam Physical Exam Vital Signs Vital Signs - First Documented 06/12/22 23:45 Temp 38.3 Pulse 88 Resp 26 B/P (MAP) 153/67 (95) Pulse Ox 95 O2 Delivery Nasal Cannula O2 Flow Rate 2.00 Capillary Refill : Height, Weight, BMI Height: 5'2.00" Weight: 306lbs. 0.0oz. 138.076065ko; 64.90 BMI Method:Stated General Appearance: Anxious, Chronically ill, Mild Distress, Obese Eyes: Right Eye Normal Inspection, Right Eye PERRL HEENT: PERRL/EOMI, Normal ENT Inspection, Pharynx Normal, Moist Mucous Membranes Neck: Full Range of Motion, Normal Inspection, Non Tender Respiratory: Chest Non Tender, Lungs Clear, Normal Breath Sounds, No Accessory Muscle Use, No Respiratory Distress Cardiovascular: Regular Rate, Rhythm, No Edema, No Gallop, No JVD, No Murmur, N ormal Peripheral Pulses Gastrointestinal: Normal Bowel Sounds, No Organomegaly, No Pulsatile Mass, Non Tender, Soft Back: Normal Inspection, No CVA Tenderness, No Vertebral Tenderness Extremity: Normal Capillary Refill, Normal Inspection, Normal Range of Motion, Non Tender, No Calf Tenderness, No Pedal Edema Neurologic/Psychiatric: Alert, Oriented x3, No Motor/Sensory Deficits, Normal Mood/Affect, blackener II-XII Norm as Tested Skin: Normal Color, Warm/Dry Lymphatic: No Adenopathy Results Results/Procedures Labs Laboratory Tests 06/12/22 00:20 06/13/22 07:45 Patient resulted labs reviewed. Assessment/Plan Admission Diagnosis Assessment: Sepsis due to UTI with gram-negative bacteremia placed on meropenem initially End-stage liver disease cirrhosis status post ablation of hepatocellular carcinoma tumor last week at NSTEMI likely type II Diabetes Morbid obesity Chronic bilirubinemia Thrombocytopenia Plan: ICU IV fluids Cardiology consult eICU consult Meropenem Admission Status: Inpatient Order (span 2 midnights) Reason for Inpatient Admission: Sepsis SASHA TILLMAN DO Jun 13, 2022 06:47
[2022-06-13] MEDS: inSUlin ASPART (NovoLOG) 1 UNIT/0.01 ML (CHARGE PER UNIT) SC SCH ×4 (07:01→21:00)
--- NOTE | 2022-06-13 07:22 | Diagnostic Imaging Report ---
EXAMINATION: Chest 1 view HISTORY: DYSPNEA COMPARISON: 01/26/2021 FINDINGS: Stable enlargement of the cardiac silhouette. Left-sided cardiac device is unchanged. There are low lung volumes with mild interstitial opacities present. No significant pleural effusion or pneumothorax. The osseous structures are intact. IMPRESSION: 1. Low lung volumes without acute radiographic abnormality in the chest. Mild interstitial opacities may relate to atelectasis although superimposed atypical infection or pulmonary edema would be within the differential. Dictated by: Dictated on workstation # [id number]
[2022-06-13] MEDS: MEROPENEM 500 MG in NS (IVPB) 100 ML IV SCH ×3 (07:45→18:52)
--- NOTE | 2022-06-13 07:52 | Tele-ICU Progress Note ---
Progress Note video rounds completed 66 y/o female presents to ED with weakness Discovered to have UTI and sepsis Meropenam and pressors started PE: currently comfortable in bed P: 66 BP 124/52 IMP: sepsis from UTI Plan: antibiotics, fluids pressors PRN Focused Exam Lactate Level 06/12/22 00:20: Lactic Acid Level 2.82*H Height, Weight, BMI Height: 5'2.00" Weight: 306lbs. 0.0oz. 138.928096vc; 64.90 BMI Method:Stated Results Results/Procedures Labs Laboratory Tests 06/12/22 00:20 Patient resulted labs reviewed. Results Labs Labs Laboratory Tests 06/12/22 23:55: Influenza Type A (RT-PCR) Not Detected, Influenza Type B (RT-PCR) Not Detected, SARS-CoV-2 RNA (RT-PCR) Not Detected 06/13/22 00:05: Blood Gas Puncture Site R RAD, Blood Gas Patient Temperature 38.3, Arterial Blood pH 7.38, Arterial Blood Partial Pressure CO2 30L, Arterial Blood Partial Pressure O2 124H, Arterial Blood HCO3 17*L, Arterial Blood Total CO2 18.0L, Ar terial Blood Oxygen Saturation 100, Arterial Blood Base Excess -6.8L, [place] Test YES-POS, Blood Gas Ventilator Setting NO, Blood Gas Inspired Oxygen ROOM AIR 06/13/22 00:15: Glucometer 146H 06/13/22 04:20: Troponin I 2.605*H, B-Type Natriuretic Peptide 330.8H, Triglycerides Level 70, Cholesterol Level 93, LDL Cholesterol Direct 38, VLDL Cholesterol 14, HDL Cholesterol 40 06/13/22 06:47: Glucometer 139H JOSH ODOM MD Jun 13, 2022 07:52
[2022-06-13 08:04] LABS: HEMATOCRIT 30 % (35-52); MEAN CORPUSCULAR VOLUME 106 fL (80-99); NEUTROPHILS % (AUTO) 83 % (42-75)
[2022-06-13 08:06] LABS: BASOPHILS % (AUTO) 0 % (0-10); EOSINOPHILS % (AUTO) 0 % (0-10); HEMOGLOBIN 10.1 g/dL (11.5-16.0); LYMPHOCYTES # (AUTO) 0.5 10^3/uL (1.0-4.0); LYMPHOCYTES % (AUTO) 6 % (12-44); MEAN CORPUSCULAR HEMOGLOBIN 36 pg (25-34); MEAN CORPUSCULAR HGB CONC 34 g/dL (32-36); MEAN PLATELET VOLUME 11.4 fL (9.0-12.2); MONOCYTES # (AUTO) 0.8 10^3/uL (0.0-1.0); MONOCYTES % (AUTO) 10 % (0-12); NEUTROPHILS # (AUTO) 6.5 10^3/uL (1.8-7.8); PLATELET COUNT 47 10^3/uL (130-400); WHITE BLOOD COUNT 7.9 10^3/uL (4.3-11.0)
[2022-06-13 08:27] LABS: ALBUMIN 2.8 GM/DL (3.2-4.5); POTASSIUM 3.7 MMOL/L (3.6-5.0)
[2022-06-13 08:29] LABS: CALCIUM 9.4 MG/DL (8.5-10.1)
[2022-06-13 08:30] LABS: TOTAL PROTEIN 4.9 GM/DL (6.4-8.2)
[2022-06-13 08:32] LABS: BILIRUBIN,TOTAL 8.7 MG/DL (0.1-1.0)
[2022-06-13 08:33] LABS: CREATININE SERUM 1.04 MG/DL (0.60-1.30)
[2022-06-13] MEDS: ASPIRIN E.C. 81 MG (ECOTRIN) TAB PO SCH (08:48)
[2022-06-13] MEDS ORDERED: meTOprolol TARTRATE 25 MG (LOPRESSOR) TABLET PO ONE (11:00)
[2022-06-13] MEDS: IBUPROFEN 800 MG (MOTRIN) TAB PO PRN (12:25)
--- NOTE | 2022-06-13 12:35 | Consultation-Cardiology ---
HPI-Cardiology Cardiology Consultation: Date of Consultation 06/13/22 Time Seen by a Provider: 10:15 Date of Admission 06/12/22 Attending Physician Lona Vega MD Admitting Physician Admitting Physician: Sasha Tillman DO Attending Physician: Sasha Tillman DO Consulting Physician CHARLINE CAT MD, MA, FACP, FACC, FSCAI, CCDS HPI: Chief Complaint: Reason for Card consult: Elevated troponin 66 yo woman admitted to Dr Tillman on the night of 06/12/22 with gen weakness and malaise and urinary incontinence. Had also had an intermittent feverish feeling. Was found to have UTI with sepsis and possible pneumonia. The ER physician also measured troponin and that was found to be mildly elevated. No cp or palp or syncope or swelling. Does not report focal weakness Review of Systems-Cardiology Review of Systems Constitutional: As described under HPI; No weight loss, No weight gain Eyes: No vision change Ears/Nose/Throat: No ear discharge, No nasal drainage, No recent hearing loss Respiratory: As described under HPI Cardiovascular: As described under HPI Gastrointestinal: No nausea, No vomiting Genitourinary: As described under HPI Musculoskeletal: No back pain, No joint pain Skin: No rash, No ulcerations Psychiatric/Neurological: No seizure, No focal weakness, No syncope Hematologic: No bleeding abnormalities QNH-Hydlio-Sxwshr Hx Patient Social History Smoking Status: Never a Smoker 2nd Hand Smoke Exposure: No Have you traveled recently?: No Alcohol Use?: No Pt feels they are or have been: No Past Medical History PMH As described under Assessment. Family Medical History Family Medical History: Does not report fam h/o early CAD or SCD Allergies and Home Medications Allergies Coded Allergies: COVID-19 (SARS-CoV-2) vaccine, meri (Unverified Allergy, Severe, Anaphylaxis, 10/14/21) erythromycin base (Unverified Allergy, Severe, Hives, 10/14/21) Penicillins (Verified Allergy, Intermediate, HIVES, 10/14/21) Sulfa (Sulfonamide Antibiotics) (Verified Allergy, Intermediate, HIVES, 10/14/21) adhesive tape (Verified Allergy, Intermediate, HIVES, 10/14/21) tetanus and diphtheria toxoids (Verified Allergy, Intermediate, HIVES, 10/14/21) Influenza Virus Vaccines (Verified Adverse Reaction, Mild, NAUSEA, 10/14/21) atorvastatin (Verified Adverse Reaction, Mild, NAUSEA, 10/14/21) hydromorphone (Verified Adverse Reaction, Mild, hallucinations, 10/14/21) morphine (Verified Adverse Reaction, Mild, hallcination, 10/14/21) simvastatin (Verified Adverse Reaction, Mild, NAUSEA, 10/14/21) Patient Home Medication List Home Medication List Reviewed: Yes Ascorbate Calcium (Vitamin C) 500 Mg Tablet, 500 MG PO HS, (Reported) Entered as Reported by: PAULINA ALCOCER on 05/11/17 1128 Cholecalciferol (Vitamin D3) (Vitamin D3) 125 Mcg Capsule, 125 MCG PO DAILY, (Reported) Entered as Reported by: SHAD HELTON on 10/21/21 0914 Diphenhydramine HCl (Benadryl Allergy) 25 Mg Tablet, 25-50 MG PO Q6H PRN for ALLERGY SYMPTOMS, (Reported) Entered as Reported by: JUAN NEUMANN on 10/21/21 1449 Ezetimibe (Zetia) 10 Mg Tablet, 10 MG PO DAILY, (Reported) Entered as Reported by: PAULINA ALCOCER on 05/11/17 1130 Ferrous Sulfate (Ferrous Sulfate) 325 Mg Tablet.dr, 325 MG PO HS, (Reported) Entered as Reported by: PAULINA ALCOCER on 10/17/19 1027 Hydrocodone Bit/Acetaminophen (HYDROcodone/APAP 5 MG/325 MG TAB) 1 Tab Tab, 1 E A PO Q4H PRN for PAIN-SEVERE (8-10) Prescribed by: SASHA TILLMAN on 11/04/21 0555 Levothyroxine Sodium (Levothyroxine Sodium) 100 Mcg Tablet, 100 MCG PO DAILY, (Reported) Entered as Reported by: TIMOTHY HERNANDES on 12/02/15 1335 Melatonin (Melatonin) 10 Mg Tablet, 10 MG PO HS PRN for SLEEP, (Reported) Entered as Reported by: JUAN NEUMANN on 10/21/21 1446 Metformin HCl (Metformin HCl) 500 Mg Tablet, 500 MG PO HS, (Reported) Entered as Reported by: SHAD HELTON on 10/21/21 0914 Metoprolol Succinate (Metoprolol Succinate) 50 Mg Tab.er.24h, 25 MG PO DAILY, (Reported) Entered as Reported by: JUAN NEUMANN on 10/21/21 1446 Omeprazole (Omeprazole) 20 Mg Capsule.dr, 20 MG PO DAILY, (Reported) Entered as Reported by: SHAD HELTON on 10/21/21 0914 Rivaroxaban (Xarelto Tablet) 15 Mg Tablet, 15 MG PO BID@0700,1900 Prescribed by: SASHA TILLMAN on 11/04/21 0555 Rivaroxaban (Xarelto Tablet) 20 Mg Tablet, 20 MG PO DAILY@1700 Prescribed by: SASHA TILLMAN on 11/04/21 0555 Sertraline HCl (Sertraline HCl) 100 Mg Tablet, 100 PO DAILY, (Reported) Entered as Reported by: JUAN NEUMANN on 10/21/21 144 Spironolactone (Spironolactone) 50 Mg Tablet, 50 MG PO DAILY, (Reported) Entered as Reported by: SHAD HELTON on 10/21/21 0914 Tramadol HCl (Tramadol HCl) 50 Mg Tablet, 50 MG PO TID PRN for PAIN-MODERATE (5- 7) Prescribed by: SASHA TILLMNA on 11/04/21 0555 Tramadol HCl (Ultram) 50 Mg Tablet, 50 MG PO Q4H Prescribed by: CECI JOHNSON on 03/03/22 2347 Physical Exam-Cardiology Physical Exam Vital Signs/I&O 06/13/22 06/13/22 06/13/22 06/13/22 02:50 03:30 03:45 04:04 Temp 38.3 Pulse 73 67 67 Resp 23 25 B/P (MAP) 132/61 108/58 (75) Pulse Ox 96 95 O2 Delivery Nasal Cannula NIV CPAP Nasal Cannula O2 Flow Rate 2.00 2.00 06/13/22 06/13/22 06/13/22 06/13/22 04:30 05:00 06:00 07:00 Pulse 65 65 62 62 Resp 25 21 19 17 B/P (MAP) 93/56 (68) 101/45 (63) 97/46 (63) 124/52 (76) Pulse Ox 94 95 97 94 O2 Delivery NIV CPAP NIV CPAP NIV CPAP NIV CPAP 06/13/22 06/13/22 06/13/22 06/13/22 07:00 07:57 07:58 07:58 Temp 36.6 Pulse 68 O2 Delivery Nasal Cannula Nasal Cannula O2 Flow Rate 2.00 2.00 06/13/22 06/13/22 06/13/22 06/13/22 08:00 09:00 10:00 10:17 Pulse 64 64 64 Resp 18 25 B/P (MAP) 119/50 (73) 100/86 (91) 145/64 (91) Pulse Ox 97 99 98 O2 Delivery Nasal Cannula Nasal Cannula Nasal Cannula NIV CPAP O2 Flow Rate 2.00 2.00 2.00 2.00 06/13/22 06/13/22 06/13/22 11:00 11:35 12:00 Temp 37.6 Pulse 64 72 Resp 21 21 B/P (MAP) 187/105 (132) Pulse Ox 98 100 O2 Delivery NIV CPAP NIV CPAP O2 Flow Rate 2.00 2.00 Capillary Refill : Constitutional: AAO x 3, well-developed, well-nourished HEENT: EOMI, hearing is well preserved; No xanthelasmas are seen Neck: carotid pulses are 2 + bilaterally Respiratory: No accessory muscle use; other (fair to good, bilat air entry) Cardiovascular: regular rate-rhythm, S1 and S2, systolic murmur (soft ANTOINETTE at card base) Gastrointestinal: No tender; soft; No guarding, No rebound; audible bowel sounds Extremities: No clubbing, No cyanosis, No significant edema Neurologic/Psychiatric: oriented x 3, other (moves all limbs equally) Skin: No rash on exposed areas, No ulcerations on exposed areas Data Review Labs Laboratory Tests 06/12/22 23:55: Influenza Type A (RT-PCR) Not Detected, Influenza Type B (RT-PCR) Not Detected, SARS-CoV-2 RNA (RT-PCR) Not Detected 06/13/22 00:05: Blood Gas Puncture Site R RAD, Blood Gas Patient Temperature 38.3, Arterial Blo od pH 7.38, Arterial Blood Partial Pressure CO2 30L, Arterial Blood Partial Pressure O2 124H, Arterial Blood HCO3 17*L, Arterial Blood Total CO2 18.0L, Arterial Blood Oxygen Saturation 100, Arterial Blood Base Excess -6.8L, [place] Test YES-POS, Blood Gas Ventilator Setting NO, Blood Gas Inspired Oxygen ROOM AIR 06/13/22 00:15: Glucometer 146H 06/13/22 04:20: Troponin I 2.605*H, B-Type Natriuretic Peptide 330.8H, Triglycerides Level 70, Cholesterol Level 93, LDL Cholesterol Direct 38, VLDL Cholesterol 14, HDL Cholesterol 40 06/13/22 06:47: Glucometer 139H 06/13/22 07:45: White Blood Count 7.9, Red Blood Count 2.81L, Hemoglobin 10.1L, Hematocrit 30L, Mean Corpuscular Volume 106H, Mean Corpuscular Hemoglobin 36H, Mean Corpuscular Hemoglobin Concent 34, Red Cell Distribution Width 14.7H, Platelet Count 47L, Mean Platelet Volume 11.4, Immature Granulocyte % (Auto) 0, Neutrophils (%) (Auto) 83H, Lymphocytes (%) (Auto) 6L, Monocytes (%) (Auto) 10, Eosinophils (%) (Auto) 0, Basophils (%) (Auto) 0, Neutrophils # (Auto) 6.5, Lymphocytes # (Auto) 0.5L, Monocytes # (Auto) 0.8, Eosinophils # (Auto) 0.0, Basophils # (Auto) 0.0, Immature Granulocyte # (Auto) 0.0, Percent Immature Platelet Fraction 3.3, Sodium Level 140, Potassium Level 3.7, Chloride Level 111H, Carbon Dioxide Level 17L, Anion Gap 12, Blood Urea Nitrogen 17, Creatinine 1.04, Estimat Glomerular Filtration Rate 59, BUN/Creatinine Ratio 16, Glucose Level 136H, Lactic Acid Level 1.29, Calcium Level 9.4, Corrected Calcium 10.4H, Total Bilirubin 8.7H, As partate Amino Transf (AST/SGOT) 34, Alanine Aminotransferase (ALT/SGPT) 30, Alkaline Phosphatase 59, Troponin I 2.434*H, Total Protein 4.9L, Albumin 2.8L 06/13/22 11:26: Glucometer 128H Laboratory Tests 06/12/22 00:20 06/13/22 07:45 A/P-Cardiology Assessment/Admission Diagnosis UTI (and ?pnuemonia) with sepsis Labile BP (episodes of hypotension during this hosp) Mild troponin elevation of undetermined etiology - Card cath of February 2019: no significant CAD, LVEF 60%, elevated LVEDP - Echo of 01-07-22 : LVEF 60-65% S/P PPM implant on 12-16-20 for reasons noted below - H/o ILR implant on Aug 19, 2020 d/t report of palpitations and syncope - pauses of up to 5 sec on tele in Aug and Sep 2020 (improved after cessation of beta-paris then) - 4 second pause on 11/21/20 (without her being on any rate-lowering agents) DM II - managed by PCP Chronic low back pain GI - H/o colon mass removal (benign) and subsequent surgery for small intestinal obstruction for which she underwent partial small intestine removal, according to her. This was in or around 2014 - Hepatic cirrhosis of undetermined etiology, followed and managed by Dr Mcduffie at [facility] H/o DVT in the post-op phase of L TKR in early 2021 - has since been on anticoag that is being managed by Dr Vega NGUYEN - treated with CPAP Fam h/o early CAD - father of [place] at age 52 Discussion and Recomendations * Complex management due to multiple comorbidities * Beta-paris, as tolerated * Low-dose ASA * Not suitable for DAPT or anticoag, given significant thrombocytopenia of undetermined etiology * Monitor labs closely * Dr Tillman managing UTI and sepsis CHARLINE CAT MD FACP FAC CCDS Jun 13, 2022 12:35
[2022-06-13] MEDS ORDERED: ENOXAPARIN 150 MG/ML (LOVENOX) SYR SQ SCH (18:00)
[2022-06-13] MEDS ORDERED: MEROPENEM 500 MG VIAL (MERREM) IV ONE (18:44)
[2022-06-13] MEDS: meTOprolol TARTRATE 25 MG (LOPRESSOR) TABLET PO SCH (20:55)
[2022-06-14] MEDS: NS IV 1000 ML 1,000 ML IV SCH ×4 (00:22→20:12)
[2022-06-14] MEDS: MEROPENEM 500 MG in NS (IVPB) 100 ML IV SCH ×4 (00:23→18:21)
[2022-06-14] MEDS: IBUPROFEN 800 MG (MOTRIN) TAB PO PRN ×2 (00:29→12:12)
[2022-06-14] MEDS: VASOPRESSIN INJECTION 20 UNIT in NS (IVPB) 100 ML IV SCH ×2 (05:03→13:36)
[2022-06-14 05:39] LABS: BASOPHILS % (AUTO) 0 % (0-10); EOSINOPHILS % (AUTO) 1 % (0-10); HEMATOCRIT 31 % (35-52); HEMOGLOBIN 10.6 g/dL (11.5-16.0); LYMPHOCYTES # (AUTO) 0.3 10^3/uL (1.0-4.0); LYMPHOCYTES % (AUTO) 5 % (12-44); MEAN CORPUSCULAR HEMOGLOBIN 36 pg (25-34); MEAN CORPUSCULAR HGB CONC 34 g/dL (32-36); MEAN CORPUSCULAR VOLUME 106 fL (80-99); MEAN PLATELET VOLUME 11.8 fL (9.0-12.2); MONOCYTES # (AUTO) 0.6 10^3/uL (0.0-1.0); MONOCYTES % (AUTO) 11 % (0-12); NEUTROPHILS # (AUTO) 4.8 10^3/uL (1.8-7.8); NEUTROPHILS % (AUTO) 83 % (42-75); PLATELET COUNT 40 10^3/uL (130-400); WHITE BLOOD COUNT 5.8 10^3/uL (4.3-11.0)
[2022-06-14 05:59] LABS: ALBUMIN 2.5 GM/DL (3.2-4.5); POTASSIUM 3.7 MMOL/L (3.6-5.0)
[2022-06-14 06:00] LABS: CALCIUM 8.7 MG/DL (8.5-10.1)
[2022-06-14 06:01] LABS: TOTAL PROTEIN 4.5 GM/DL (6.4-8.2)
[2022-06-14 06:03] LABS: BILIRUBIN,TOTAL 7.4 MG/DL (0.1-1.0)
[2022-06-14 06:04] LABS: PHOSPHORUS 2.1 MG/DL (2.3-4.7)
[2022-06-14 06:05] LABS: CREATININE SERUM 0.96 MG/DL (0.60-1.30)
[2022-06-14 06:09] LABS: MAGNESIUM 1.7 MG/DL (1.6-2.4)
[2022-06-14] MEDS: MAGNESIUM 1 GM/100 ML IVPB 100 ML IV SCH ×2 (06:22→08:15)
[2022-06-14] MEDS: POTASSIUM CL 10MEQ/50ML IVPB 50 ML IV SCH (06:22)
[2022-06-14] MEDS: inSUlin ASPART (NovoLOG) 1 UNIT/0.01 ML (CHARGE PER UNIT) SC SCH ×4 (06:23→22:10)
[2022-06-14] MEDS: KCL 20 MEQ TAB (K-DUR) PO SCH (06:23)
[2022-06-14] MEDS: NOREPINEPHRINE 8 MG/250 ML 250 ML IV SCH ×3 (06:23→22:10)
--- NOTE | 2022-06-14 06:59 | Progress Note - Hospitalist ---
Subjective HPI/CC On Admission Date Seen by Provider: Jun 14, 2022 Time Seen by Provider: 11:00 Chief complaint: Altered mental status due to sepsis from UTI and gram-negative bacteremia with cirrhosis and chronic bilirubinemia HPI: This is a 66-year-old female with a past medical history of cirrhosis from fatty liver with morbid obesity BMI 67 who recently had ablation of hepatocellular carcinoma at last week who presented to ER with weakness and fever found to have UTI and pneumonia. Patient remains very borderline critically ill due to chronic liver dysfunction. At this current time she is having rigors while I am examining her. Blood cultures are positive for gram- negative bacteria. Meropenem was initiated initially broad-spectrum. Elevated troponin is likely type II NSTEMI per Dr. Thompson. Thrombocytopenia is a bleeding risk so unable to initiate high-dose Lovenox. Subjective/Events-last exam Much improved but very fragile considering the status of her liver failure Bacteremia gram negative so maintained on empiric broad spectrum until sensitivities back Patient much better but dyspnea with the least amount of physical movement Patient had her knee replaced earlier in the year and I took care of her in ARU she recalls and I recall her at that time. UTI's are recurrent Patient appears to be very declined overall and suspect this will be a continued decline due to cirrhosis progression Review of Systems General: Fatigue, Malaise Pulmonary: Dyspnea Neurological: Weakness, Incoordination Focused Exam Lactate Level 06/12/22 00:20: Lactic Acid Level 2.82*H 06/13/22 07:45: Lactic Acid Level 1.29 Objective Exam Vital Signs Vital Signs Date Time Temp Pulse Resp B/P (MAP) Pulse Ox O2 Delivery O2 Flow Rate FiO2 06/14/22 16:00 69 18 117/50 (72) 95 Room Air 06/14/22 12:05 36.8 06/14/22 12:00 2.00 Capillary Refill : General Appearance: WD/WN, Anxious, Chronically ill, Mild Distress, Obese Respiratory: Lungs Clear, Normal Breath Sounds, Decreased Breath Sounds Cardiovascular: Regular Rate, Rhythm Neurologic/Psychiatric: Alert, Oriented x3, No Motor/Sensory Deficits, Normal Mood/Affect Results/Procedures Lab Laboratory Tests 06/14/22 05:03 Patient resulted labs reviewed. Assessment/Plan Assessment and Plan Assess & Plan/Chief Complaint Assessment: Sepsis due to UTI with gram-negative bacteremia placed on meropenem initially End-stage liver disease cirrhosis status post ablation of hepatocellular carcinoma tumor last week at NSTEMI likely type II Diabetes Super morbid obesity Chronic bilirubinemia Thrombocytopenia Left total knee replacement Dr Noriega required ARU complicated with left pe rineal thrombosis maintained on OAC until this admit Diabetes Hypertension NGUYEN on CPAP Hyperlipidemia Hypothyroidism Pacemaker Plan: ICU IV fluids Cardiology consult eICU consult Meropenem High risk for overt liver failure CULLEN TILLMAN DO Jun 14, 2022 06:59
[2022-06-14] MEDS: meTOprolol TARTRATE 25 MG (LOPRESSOR) TABLET PO SCH ×2 (08:15→20:12)
[2022-06-14] MEDS: ASPIRIN E.C. 81 MG (ECOTRIN) TAB PO SCH (08:15)
[2022-06-14 08:43] LABS: BILIRUBIN,URINE 1+ (NEGATIVE)
--- NOTE | 2022-06-14 11:02 | Tele-ICU Progress Note ---
Subjective Date Seen by a Provider: Jun 14, 2022 Time Seen by a Provider: 11:02 Subjective/Events-last exam (Tele-ICU Physician , Progress Note ) Available chart/ vitals / labs / Images reviewed Video assessment done using teleICU camera, rest of exam as per RN Discussed with RN Events overnight : Afebrile hemodynamically stable Respiratory - 2L I/O = Drips: NS 150 Pressors- no Consultants: Hospital course: A/P Sepsis due to UTI with gram-negative bacteremia - placed on meropenem initially - awai sens End-stage liver disease cirrhosis -status post ablation of hepatocellular carcinoma tumor last week at . Chronic bilirubinemia NSTEMI likely type II - Echo of 01-07-22 : LVEF 60-65% - cards follow Diabetes -ISS Thrombocytopenia - ? chronic NGUYEN - [id number] with CPAP +2 L o2 - to cont H/o DVT in the post-op phase of L TKR in early 2021 - not on AC with low PLT Lines : perph , (Central Line Necessity Reviewed) Pringle: + OG: Nutrition: Po Analgesia: Anxiety/ delirium VTE Prophylaxis: low PLT Stress Ulcer Prophylaxis: na Plans in collaboration with bedside consultants and IM MDs. Discussed with RN to reach out if any questions or concerns A total of 20minutes of critical care time was devoted to this patient today, required to treat and/or prevent further deterioration of critical care condition ( as above ) . Sepsis Event Evaluation Height, Weight, BMI Height: 5'2.00" Weight: 306lbs. 0.0oz. 138.582886lm; 64.90 BMI Method:Stated Focused Exam Lactate Level 06/12/22 00:20: Lactic Acid Level 2.82*H 06/13/22 07:45: Lactic Acid Level 1.29 Exam Exam Patient acknowledged, consented, and participated in this virtual visit which was conducted using real time audio/video Vital Signs Date Time Temp Pulse Resp B/P (MAP) Pulse Ox O2 Delivery O2 Flow Rate FiO2 06/14/22 10:00 59 13 115/45 (68) 96 Nasal Cannula 2.00 06/14/22 09:00 60 25 147/64 (91) 95 Room Air 06/14/22 08:31 Room Air 06/14/22 08:00 36.4 06/14/22 08:00 64 19 103/91 (95) 97 Room Air 06/14/22 07:13 60 06/14/22 07:00 60 14 114/51 (72) 90 Room Air 06/14/22 06:00 60 19 127/58 (81) 94 NIV CPAP 2.00 06/14/22 05:00 60 22 129/63 (85) 95 NIV CPAP 2.00 06/14/22 04:00 NIV CPAP 2.00 06/14/22 04:00 37.0 06/14/22 04:00 60 22 116/56 (76) 94 NIV CPAP 2.00 06/14/22 03:00 60 18 116/55 (75) 93 NIV CPAP 2.00 06/14/22 02:00 63 20 119/56 (77) 92 NIV CPAP 2.00 06/14/22 01:00 60 06/14/22 01:00 65 20 117/50 (72) 95 NIV CPAP 2.00 06/14/22 00:59 37.3 06/14/22 00:29 38.3 06/14/22 00:01 38.3 06/14/22 00:00 NIV CPAP 2.00 06/14/22 00:00 77 22 143/67 (92) 95 NIV CPAP 2.00 06/13/22 23:00 69 15 122/55 (77) 94 NIV CPAP 2.00 06/13/22 22:00 74 16 139/58 (85) 96 NIV CPAP 2.00 06/13/22 21:00 75 20 131/59 (83) 99 NIV CPAP 2.00 06/13/22 20:00 64 27 120/56 (77) 96 NIV CPAP 2.00 06/13/22 20:00 37.9 06/13/22 20:00 NIV CPAP 2.00 06/13/22 19:19 21.00 06/13/22 19:00 74 27 99/75 (83) 96 NIV CPAP 2.00 06/13/22 19:00 74 06/13/22 18:00 72 12 111/48 (69) 94 NIV CPAP 2.00 06/13/22 17:00 66 14 114/44 (67) 95 NIV CPAP 2.00 06/13/22 16:00 67 11 105/46 (65) 95 NIV CPAP 2.00 06/13/22 16:00 37.4 06/13/22 16:00 NIV CPAP 2.00 06/13/22 15:00 62 24 114/47 (69) 94 NIV CPAP 2.00 06/13/22 14:00 64 136/51 (79) 93 NIV CPAP 2.00 06/13/22 13:00 66 24 130/61 (84) 96 NIV CPAP 2.00 06/13/22 12:55 37.5 06/13/22 12:35 NIV CPAP 2.00 06/13/22 12:31 71 06/13/22 12:25 37.6 06/13/22 12:00 37.4 06/13/22 12:00 72 21 100 NIV CPAP 2.00 06/13/22 11:35 37.6 I & O 06/14/22 07:00 Intake Total 4635 ml Output Total 950 ml Balance 3685 ml Height & Weight Height: 5'2.00" Weight: 306lbs. 0.0oz. 138.069380ja; 64.90 BMI Method:Stated General Appearance: Anxious, Chronically ill, Mild Distress, Obese HEENT: PERRL/EOMI, Normal ENT Inspection, Pharynx Normal, Moist Mucous Membranes Neck: Full Range of Motion, Normal Inspection, Non Tender Respiratory: Chest Non Tender, Lungs Clear, Normal Breath Sounds, No Accessory Muscle Use, No Respiratory Distress Cardiovascular: Regular Rate, Rhythm, No Edema, No Gallop, No JVD, No Murmur, Normal Peripheral Pulses Extremity: Normal Capillary Refill, Normal Inspection, Normal Range of Motion, Non Tender, No Calf Tenderness, No Pedal Edema Neurologic/Psychiatric: Alert, Oriented x3, No Motor/Sensory Deficits, Normal Mood/Affect, recreation specialist II-XII Norm as Tested Skin: Normal Color, Warm/Dry Lymphatic: No Adenopathy Results Lab Laboratory Tests 06/13/22 07:45 06/14/22 05:03 Assessment/Plan Assessment/Plan 1 FRANKI STANLEY MD Jun 14, 2022 11:02
--- NOTE | 2022-06-14 15:41 | Progress Note - Cardiology ---
Cardiology SOAP Progress Note Subjective: No cp or palp or syncope or shortness of breath No n/v/d Gen weakness and malaise present No focal weakness Objective: I&O/Vital Signs 06/14/22 06/14/22 06/14/22 06/14/22 04:00 04:00 04:00 05:00 Temp 37.0 Pulse 60 60 Resp 22 B/P (MAP) 116/56 (76) 129/63 (85) Pulse Ox 94 95 O2 Delivery NIV CPAP NIV CPAP NIV CPAP O2 Flow Rate 2.00 2.00 2.00 06/14/22 06/14/22 06/14/22 06/14/22 06:00 07:00 07:13 08:00 Pulse 60 60 60 64 Resp 19 14 19 B/P (MAP) 127/58 (81) 114/51 (72) 103/91 (95) Pulse Ox 94 90 97 O2 Delivery NIV CPAP Room Air Room Air O2 Flow Rate 2.00 06/14/22 06/14/22 06/14/22 06/14/22 08:00 08:31 09:00 10:00 Temp 36.4 Pulse 60 59 Resp 25 13 B/P (MAP) 147/64 (91) 115/45 (68) Pulse Ox 95 96 O2 Delivery Room Air Room Air Room Air O2 Flow Rate 06/14/22 06/14/22 06/14/22 06/14/22 11:00 12:00 12:05 12:37 Temp 36.8 Pulse 66 65 67 Resp 10 15 B/P (MAP) 128/80 (96) 140/87 (104) Pulse Ox 98 98 O2 Delivery Room Air Room Air 06/14/22 06/14/22 13:00 14:00 Pulse 74 66 Resp 15 20 B/P (MAP) 157/65 (95) 162/56 (91) Pulse Ox 98 96 O2 Delivery Room Air Room Air 06/14/22 00:00 Intake Total 2920 ml Output Total 500 ml Balance 2420 ml Weight (Pounds): 306 Weight (Ounces): 0.0 Weight (Calculated Kilograms): 138.436933 Constitutional: AAO x 3, well-developed, well-nourished Respiratory: No accessory muscle use; other (fair to good, bilat air entry) Cardiovascular: regular rate-rhythm, S1 and S2, systolic murmur (soft ANTOINETTE at card base) Gastrointestional: No tender; soft; No guarding, No rebound; audible bowel sounds Extremities: No clubbing, No cyanosis, No significant edema Neurologic/Psychiatric: oriented x 3, other (moves all limbs equally) Skin: No rash on exposed areas, No ulcerations on exposed areas Results/Procedures: Labs Laboratory Tests 06/13/22 15:58: Glucometer 123H 06/13/22 20:49: Glucometer 125H 06/14/22 05:03: White Blood Count 5.8, Red Blood Count 2.93L, Hemoglobin 10.6L, Hematocrit 31L, Mean Corpuscular Volume 106H, Mean Corpuscular Hemoglobin 36H, Mean Corpuscular Hemoglobin Concent 34, Red Cell Distribution Width 14.6H, Platelet Count 40L, Mean Platelet Volume 11.8, Immature Granulocyte % (Auto) 1, Neutrophils (%) (Auto) 83H, Lymphocytes (%) (Auto) 5L, Monocytes (%) (Auto) 11, Eosinophils (%) (Auto) 1, Basophils (%) (Auto) 0, Neutrophils # (Auto) 4.8, Lymphocytes # (Auto) 0.3L, Monocytes # (Auto) 0.6, Eosinophils # (Auto) 0.0, Basophils # (Auto) 0.0, Immature Granulocyte # (Auto) 0.0, Percent Immature Platelet Fraction 3.7, Sodium Level 137, Potassium Level 3.7, Chloride Level 112H, Carbon Dioxide Level 15L, Anion Gap 10, Blood Urea Nitrogen 22H, Creatinine 0.96, Estimat Glomerular Filtration Rate 64, BUN/Creatinine Ratio 23, Glucose Level 126H, Calcium Level 8.7, Corrected Calcium 9.9, Phosphorus Level 2.1L, Magnesium Level 1.7, Total Bilirubin 7.4H, Aspartate Amino Transf (AST/SGOT) 39H, Alanine Aminotransferase (ALT/SGPT) 29, Alkaline Phosphatase 63, Total Protein 4.5L, Albumin 2.5L 06/14/22 05:56: Glucometer 112H 06/14/22 10:47: Glucometer 162H Microbiology 06/13/22 Blood Culture - Preliminary, Resulted No growth 06/13/22 Urine Culture - Preliminary, Resulted Gram Negative Noah Laboratory Tests 06/13/22 07:45 06/14/22 05:03 A/P: Assessment: UTI (and ?pnuemonia) with sepsis Persistent thrombocytopenia Labile BP (episodes of hypotension during this hosp) Mild troponin elevation of undetermined etiology - Card cath of February 2019: no significant CAD, LVEF 60%, elevated LVEDP - Echo of 01-07-22 : LVEF 60-65% S/P PPM implant on 12-16-20 for reasons noted below - H/o ILR implant on Aug 19, 2020 d/t report of palpitations and syncope - pauses of up to 5 sec on tele in Aug and Sep 2020 (improved after cessation of beta-paris then) - 4 second pause on 11/21/20 (without her being on any rate-lowering agents) DM II - managed by PCP Chronic low back pain GI - H/o colon mass removal (benign) and subsequent surgery for small intestinal obstruction for which she underwent partial small intestine removal, according to her. This was in or around 2014 - Hepatic cirrhosis of undetermined etiology, followed and managed by Dr Mcduffie at [facility] H/o DVT in the post-op phase of L TKR in early 2021 - has since been on anticoag that is being managed by Dr Vega NGUYEN - treated with CPAP Fam h/o early CAD - father of [place] at age 52 Plan: * Complex management due to multiple comorbidities * Continue current regimen * Not suitable for DAPT or anticoag, given significant thrombocytopenia of und etermined etiology. Continue single agent (ASA) if tolerated * Monitor labs closely * Dr Santos managing UTI and sepsis CHARLINE CAT MD [facility] CCDS Jun 14, 2022 15:41
[2022-06-15] MEDS: MEROPENEM 500 MG in NS (IVPB) 100 ML IV SCH ×4 (00:47→18:37)
[2022-06-15] MEDS: VASOPRESSIN INJECTION 20 UNIT in NS (IVPB) 100 ML IV SCH (00:56)
[2022-06-15] MEDS: NS IV 1000 ML 1,000 ML IV SCH (03:00)
[2022-06-15 05:10] LABS: BASOPHILS % (AUTO) 1 % (0-10); EOSINOPHILS # (AUTO) 0.1 10^3/uL (0.0-0.3); EOSINOPHILS % (AUTO) 2 % (0-10); HEMATOCRIT 35 % (35-52); LYMPHOCYTES # (AUTO) 0.3 10^3/uL (1.0-4.0); LYMPHOCYTES % (AUTO) 7 % (12-44); MEAN CORPUSCULAR HEMOGLOBIN 35 pg (25-34); MEAN CORPUSCULAR HGB CONC 34 g/dL (32-36); MEAN CORPUSCULAR VOLUME 104 fL (80-99); MONOCYTES # (AUTO) 0.4 10^3/uL (0.0-1.0); MONOCYTES % (AUTO) 11 % (0-12); NEUTROPHILS # (AUTO) 3.1 10^3/uL (1.8-7.8); NEUTROPHILS % (AUTO) 80 % (42-75); PLATELET COUNT 45 10^3/uL (130-400); WHITE BLOOD COUNT 3.9 10^3/uL (4.3-11.0)
[2022-06-15 05:22] LABS: INR 1.4 (0.8-1.4); PROTHROMBIN TIME PATIENT 17.1 SEC (12.2-14.7)
[2022-06-15 05:29] LABS: ALBUMIN 2.4 GM/DL (3.2-4.5); POTASSIUM 3.7 MMOL/L (3.6-5.0)
[2022-06-15 05:30] LABS: CALCIUM 8.6 MG/DL (8.5-10.1)
[2022-06-15 05:32] LABS: TOTAL PROTEIN 4.6 GM/DL (6.4-8.2)
[2022-06-15 05:35] LABS: CREATININE SERUM 0.85 MG/DL (0.60-1.30); PHOSPHORUS 2.2 MG/DL (2.3-4.7)
[2022-06-15 05:39] LABS: MAGNESIUM 1.8 MG/DL (1.6-2.4)
[2022-06-15] MEDS: inSUlin ASPART (NovoLOG) 1 UNIT/0.01 ML (CHARGE PER UNIT) SC SCH ×4 (06:11→21:11)
[2022-06-15] MEDS: POTASSIUM CL 10MEQ/50ML IVPB 50 ML IV SCH (06:11)
[2022-06-15] MEDS: KCL 20 MEQ TAB (K-DUR) PO SCH (06:11)
[2022-06-15] MEDS: MAGNESIUM 1 GM/100 ML IVPB 100 ML IV SCH (06:11)
[2022-06-15] MEDS: ASPIRIN E.C. 81 MG (ECOTRIN) TAB PO SCH (08:30)
[2022-06-15] MEDS: meTOprolol TARTRATE 25 MG (LOPRESSOR) TABLET PO SCH ×2 (08:30→20:33)
[2022-06-15] MEDS ORDERED: ONDA4TAB11 PO (09:01)
[2022-06-15] MEDS ORDERED: EZET10TA49 PO (09:01)
[2022-06-15] MEDS ORDERED: CNC1KV IM (09:01)
[2022-06-15] MEDS ORDERED: RIFA550T PO (09:01)
--- NOTE | 2022-06-15 10:01 | Tele-ICU Progress Note ---
Subjective Date Seen by a Provider: Jun 15, 2022 Time Seen by a Provider: 10:01 Subjective/Events-last exam (Tele-ICU Physician , Progress Note ) Available chart/ vitals / labs / Images reviewed Video assessment done using teleICU camera, rest of exam as per RN Discussed with RN Events overnight : Afebrile hemodynamically stable Respiratory - 2L I/O =pos 3 L Drips: NS 150 Pressors- no Consultants: Hospital course: A/P Sepsis due to UTI / bacteremia with Ecoli - placed on meropenem initially - awai sens - vitals stable , good po intake - STOP IVF End-stage liver disease cirrhosis -status post ablation of hepatocellular carcinoma tumor last week at . Chronic bilirubinemia NSTEMI likely type II - Echo of 01-07-22 : LVEF 60-65% - cards follow Diabetes -ISS Thrombocytopenia - ? chronic NGUYEN - [id number] with CPAP +2 L o2 - to cont H/o DVT in the post-op phase of L TKR in early 2021 - not on AC with low PLT Lines : perph , (Central Line Necessity Reviewed) Pringle: + OG: Nutrition: Po Analgesia: Anxiety/ delirium VTE Prophylaxis: low PLT Stress Ulcer Prophylaxis: na Plans in collaboration with bedside consultants and IM MDs. Discussed with RN to reach out if any questions or concerns A total of 20minutes of critical care time was devoted to this patient today, required to treat and/or prevent further deterioration of critical care condition ( as above ) . Sepsis Event Evaluation Height, Weight, BMI Height: 5'2.00" Weight: 306lbs. 0.0oz. 138.166194ch; 64.90 BMI Method:Stated Focused Exam Lactate Level 06/13/22 07:45: Lactic Acid Level 1.29 Exam Exam Patient acknowledged, consented, and participated in this virtual visit which was conducted using real time audio/video Vital Signs Date Time Temp Pulse Resp B/P (MAP) Pulse Ox O2 Delivery O2 Flow Rate FiO2 06/15/22 09:00 65 20 95 NIV CPAP 2.00 06/15/22 08:00 70 23 131/59 (83) 96 NIV CPAP 2.00 06/15/22 07:48 36.8 06/15/22 07:00 61 16 120/48 (72) 91 NIV CPAP 2.00 06/15/22 06:55 60 06/15/22 06:00 65 18 131/54 (79) 95 NIV CPAP 2.00 06/15/22 05:24 NIV Bilevel 2 06/15/22 05:00 61 18 119/52 (74) 95 NIV CPAP 2.00 06/15/22 04:00 95 Room Air 06/15/22 04:00 60 14 92/46 (61) 91 NIV CPAP 2.00 06/15/22 03:00 61 20 114/62 (79) 93 NIV CPAP 2.00 06/15/22 02:00 60 19 117/53 (74) 91 NIV CPAP 2.00 06/15/22 01:00 59 16 118/63 (81) 95 NIV CPAP 2.00 06/15/22 01:00 60 06/15/22 00:00 95 Room Air 06/15/22 00:00 59 23 134/58 (83) 96 NIV CPAP 2.00 06/14/22 23:00 64 17 131/61 (84) 96 NIV CPAP 2.00 06/14/22 22:00 63 21 135/59 (84) 95 NIV CPAP 2.00 06/14/22 21:00 68 20 132/55 (80) 96 NIV CPAP 2.00 06/14/22 20:00 60 20 144/57 (86) 92 NIV CPAP 2.00 06/14/22 20:00 95 Room Air 06/14/22 19:28 36.9 06/14/22 19:19 21.00 06/14/22 19:00 63 20 141/51 (81) 93 NIV CPAP 2.00 06/14/22 19:00 63 06/14/22 18:02 NIV CPAP 2.00 06/14/22 18:00 64 8 143/62 (89) 95 Room Air 06/14/22 17:03 95 Room Air 06/14/22 17:00 75 19 104/52 (69) 95 Room Air 06/14/22 16:00 69 18 117/50 (72) 95 Room Air 06/14/22 15:00 68 30 128/53 (78) 94 Room Air 06/14/22 14:00 66 20 162/56 (91) 96 Room Air 06/14/22 13:00 74 15 157/65 (95) 98 Room Air 06/14/22 12:37 67 06/14/22 12:05 36.8 9/5/22 12:00 NIV CPAP 2.00 06/14/22 12:00 65 15 140/87 (104) 98 Room Air 06/14/22 11:00 66 10 128/80 (96) 98 Room Air I & O 06/15/22 07:00 Intake Total 4800 ml Output Total 1350 ml Balance 3450 ml Height & Weight Height: 5'2.00" Weight: 306lbs. 0.0oz. 138.033745qz; 64.90 BMI Method:Stated General Appearance: WD/WN, Anxious, Chronically ill, Mild Distress, Obese HEENT: PERRL/EOMI, Normal ENT Inspection, Pharynx Normal, Moist Mucous Membranes Neck: Full Range of Motion, Normal Inspection, Non Tender Respiratory: Lungs Clear, Normal Breath Sounds, Decreased Breath Sounds Cardiovascular: Regular Rate, Rhythm Extremity: Normal Capillary Refill, Normal Inspection, Normal Range of Motion, Non Tender, No Calf Tenderness, No Pedal Edema Neurologic/Psychiatric: Alert, Oriented x3, No Motor/Sensory Deficits, Normal Mood/Affect Skin: Normal Color, Warm/Dry Lymphatic: No Adenopathy Results Lab Laboratory Tests 06/14/22 05:03 06/15/22 04:55 Assessment/Plan Assessment/Plan 1 FRANKI STANLEY MD Jun 15, 2022 10:01
--- NOTE | 2022-06-15 10:12 | Progress Note - Cardiology ---
Cardiology SOAP Progress Note Subjective: Sitting up in recliner at the bedside States she feels better today No c/o CP Feels SOB is better today Gen weakness Objective: I&O/Vital Signs 06/15/22 06/15/22 06/15/22 06/15/22 05:00 05:24 06:00 06:55 Pulse 61 65 60 Resp 18 18 B/P (MAP) 119/52 (74) 131/54 (79) Pulse Ox 95 95 O2 Delivery NIV CPAP NIV Bilevel NIV CPAP O2 Flow Rate 2.00 2.00 FiO2 2 06/15/22 06/15/22 06/15/22 06/15/22 07:00 07:48 08:00 09:00 Temp 36.8 Pulse 61 70 65 Resp 16 23 20 B/P (MAP) 120/48 (72) 131/59 (83) Pulse Ox 91 96 95 O2 Delivery NIV CPAP NIV CPAP NIV CPAP O2 Flow Rate 2.00 2.00 2.00 06/15/22 06/15/22 06/15/22 10:00 12:00 13:15 Temp 37.1 Pulse 63 60 64 Resp 14 16 B/P (MAP) 117/51 (73) 109/57 (74) Pulse Ox 97 94 O2 Delivery NIV CPAP NIV CPAP O2 Flow Rate 2.00 2.00 06/14/22 23:59 Intake Total 2880 ml Output Total 650 ml Balance 2230 ml Weight (Pounds): 306 Weight (Ounces): 0.0 Weight (Calculated Kilograms): 138.247875 Constitutional: AAO x 3, well-developed, well-nourished Respiratory: No accessory muscle use; other (fair to good, bilat air entry) Cardiovascular: regular rate-rhythm, S1 and S2, systolic murmur (soft ANTOINETTE at card base) Gastrointestional: No tender; soft; No guarding, No rebound; audible bowel sounds Extremities: No clubbing, No cyanosis, No significant edema Neurologic/Psychiatric: oriented x 3, other (moves all limbs equally) Skin: No rash on exposed areas, No ulcerations on exposed areas Results/Procedures: Labs Laboratory Tests 06/14/22 21:56: Glucometer 121H 06/15/22 04:55: White Blood Count 3.9L, Red Blood Count 3.39L, Hemoglobin 12.0, Hematocrit 35, Mean Corpuscular Volume 104H, Mean Corpuscular Hemoglobin 35H, Mean Corpuscular Hemoglobin Concent 34, Red Cell Distribution Width 15.0H, Platelet Count 45L, Mean Platelet Volume 12.0, Immature Granulocyte % (Auto) 0, Neutrophils (%) (Auto) 80H, Lymphocytes (%) (Auto) 7L, Monocytes (%) (Auto) 11, Eosinophils (%) (Auto) 2, Basophils (%) (Auto) 1, Neutrophils # (Auto) 3.1, Lymphocytes # (Auto) 0.3L, Monocytes # (Auto) 0.4, Eosinophils # (Auto) 0.1, Basophils # (Auto) 0.0, Immature Granulocyte # (Auto) 0.0, Prothrombin Time 17.1H, INR Comment 1.4, Sodium Level 136, Potassium Level 3.7, Chloride Level 112H, Carbon Dioxide Level 16L, Anion Gap 8, Blood Urea Nitrogen 20H, Creatinine 0.85, Estimat Glomerular Filtration Rate 75, BUN/Creatinine Ratio 24, Glucose Level 118H, Calcium Level 8.6, Corrected Calcium 9.9, Phosphorus Level 2.2L, Magnesium Level 1.8, Total Bilirubin 7.0H, Aspartate Amino Transf (AST/SGOT) 62H, Alanine Aminotransferase (ALT/SGPT) 34, Alkaline Phosphatase 70, Ammonia 67H, Total Protein 4.6L, Albumin 2.4L 06/15/22 10:46: Glucometer 107 Microbiology 06/13/22 Blood Culture - Preliminary, Resulted No growth 06/13/22 Urine Culture - Final, Complete Escherichia coli A/P: Assessment: UTI (and ?pnuemonia) with sepsis Persistent thrombocytopenia Labile BP (episodes of hypotension during this hosp) Mild troponin elevation of undetermined etiology - Card cath of February 2019: no significant CAD, LVEF 60%, elevated LVEDP - Echo of 01-07-22 : LVEF 60-65% S/P PPM implant on 12-16-20 for reasons noted below - H/o ILR implant on Aug 19, 2020 d/t report of palpitations and syncope - pauses of up to 5 sec on tele in Aug and Sep 2020 (improved after cessation of beta-paris then) - 4 second pause on 11/21/20 (without her being on any rate-lowering agents) DM II - managed by PCP Chronic low back pain GI - H/o colon mass removal (benign) and subsequent surgery for small intestinal obstruction for which she underwent partial small intestine removal, according to her. This was in or around 2014 - Hepatic cirrhosis of undetermined etiology, followed and managed by Dr Mcduffie at [facility] H/o DVT in the post-op phase of L TKR in early 2021 - has since been on anticoag that is being managed by Dr Vega NGUYEN - treated with CPAP Fam h/o early CAD - father of DC at age 52 Plan: * Complex management due to multiple comorbidities * Continue current regimen * Not suitable for DAPT or anticoag, given significant thrombocytopenia of undetermined etiology. Continue single agent (ASA) if tolerated * Monitor labs closely * Dr Santos managing UTI and sepsis AVIVA ETIENNE Jun 15, 2022 10:12
--- NOTE | 2022-06-15 10:45 | Physical Therapy Evaluation ---
PT Evaluation-General Medical Diagnosis Admission Date Jun 13, 2022 at 01:45 Medical Diagnosis: sepsis, UTI/NSTEMI Onset Date: Jun 13, 2022 Therapy Diagnosis Therapy Diagnosis: impaired mobility/weakness Height/Weight Height (Feet): 5 Height (Inches): 2.00 Weight (Pounds): 306 Weight (Ounces): 0.0 Precautions Precautions/Isolations: Fall Prevention, Standard Precautions, Pressure Ulcer Referral Physician: Tom Reason for Referral: Evaluation/Treatment Medical History Pertinent Medical History: DM, HTN, Hypothroidism Current History ER secondary to AMS Social History Home: 5th wheel trailer Current Living Status: Spouse Entry Into Home: Stairs With Railing PT Steps Into Home: 4 Prior Prior Level of Function SCALE: Activities may be completed with or without assistive devices. 3-Tzjjxrhygo-zteyqhz completes the activity by him/herself with no assistance from a helper. 5-Set-up or Clean-up Assistance-helper sets up or cleans up; patient completes activity. [place] assists only prior to or following the activity. 4-Supervision or Touching Assistance-helper provides verbal cues and/or touching/steadying and/or contact guard assistance as patient completes activity. Assistance may be provided throughout the activity or intermittently. 3-Partial/Moderate Assistance-helper does LESS THAN HALF the effort. [place] lifts, holds or supports trunk or limbs, but provides less than half the effort. 2-Substantial/Maximal Assistance-helper does MORE THAN HALF the effort. [place] lifts or holds trunk or limbs and provides more than half the effort. 4-Qvyqurpvw-gyphyu does ALL the effort. Patient does none of the effort to complete the activity. Or, the assistance of 2 or more helpers is required for the patient to complete the activity. If activity was not attempted, code reason: 7-Patient Refused. 9-Not Applicable-not attempted and the patient did not perform the activity before the current illness, exacerbation or injury. 10-Not Attempted due to Environmental Limitations-(lack of equipment, weather restraints, etc.). 88-Not Attempted due to Medical Conditions or Safety Concerns. Bed Mobility: 6 Transfers (B,C,W/C): 6 Gait: 6 Stairs: 6 Indoor Mobility (Ambulation): Independent Stairs: Independent Prior Devices Use: None PT Evaluation-Current Subjective Patient agrees to PT. Objective Patient Orientation: Normal For Age Attachments: Pringle Catheter, IV ROM/Strength ROM Lower Extremities bilateral LE WFL Strength Lower Extremities 3+/5 grossly bilateral LE all planes Integumentary/Posture Integumentary refer to nursing notes Bladder Incontinence: Pringle Cath Posture WFL Neuromuscular (Tone, Coordination, Reflexes) grossly intact Sensory Vision: Functional Hearing: Functional Transfers Lying to Sitting/Side of Bed(Q: 3 Sit to Stand (QC): 3 Chair/Bdc-wr-Krumh Xfer(QC): 4 Gait Mode of Locomotion: Walk Anticipated Mode of Locomotion: Walk Walk 10 feet (QC): 4 Walk 50 ft with 2 Turns(QC): 4 Walk 150 ft (QC): 88 Distance: 50' Gait Assistive Device: FWW Comments/Gait Description slow, steady gait sequence Balance Sitting Static: Normal Sitting Dynamic: Normal Standing Static: Normal Standing Dynamic: Normal Assessment/Needs 66 y.o. female, will benefit from skilled PT to address functional strength and mobility to improve current LOF to safely return to home at maximum LOF. Rehab Potential: Fair PT Beam Builder Helper Goals Beam Builder Helper Goals PT Beam Builder Helper Goals Time Frame: Jul 03, 2022 Roll Left & Right (QC): 6 Sit to Lying (QC): 6 Lying-Sitting on Side/Bed(QC): 6 Sit to Stand (QC): 6 Chair/Aht-te-Wjhcn Xfer(QC): 6 Toilet Transfer (QC): 6 Walk 10 feet (QC): 6 Walk 50ft with 2 Turns (QC): 6 Walk 150 ft (QC): 6 PT Plan Problem List Problem List: Activity Tolerance, Functional Strength, Safety, Balance, Gait, Transfer, Bed Mobility Treatment/Plan Treatment Plan: Continue Plan of Care Treatment Plan: Bed Mobility, Education, Functional Activity Shanice, Functional Strength, Gait, Safety, Therapeutic Exercise, Transfers Treatment Duration: Jul 03, 2022 Frequency: 6 times per week Estimated Hrs Per Day: .25 hour per day Patient and/or Family Agrees t: Yes Time/GCodes Time In: 733 Time Out: 758 Total Billed Treatment Time: 25 Total Billed Treatment 1 visit EVModC 13 min FA 12 min ROSEMARIE HAWKINS PT Jun 15, 2022 10:45
--- NOTE | 2022-06-15 11:02 | Progress Note - Hospitalist ---
WANDA CASTILLO 06/15/22 1102: Subjective HPI/CC On Admission Date Seen by Provider: Jun 15, 2022 Time Seen by Provider: 10:58 Chief complaint: Altered mental status due to sepsis from UTI and gram-negative bacteremia with cirrhosis and chronic bilirubinemia HPI: This is a 66-year-old female with a past medical history of cirrhosis from fatty liver with morbid obesity BMI 67 who recently had ablation of hepat ocellular carcinoma at last week who presented to ER with weakness and fever found to have UTI and pneumonia. Patient remains very borderline critically ill due to chronic liver dysfunction. At this current time she is having rigors while I am examining her. Blood cultures are positive for gram-negative bacteria. Meropenem was initiated initially broad-spectrum. Elevated troponin is likely type II NSTEMI per Dr. Thompson. Thrombocytopenia is a bleeding risk so unable to initiate high-dose Lovenox. Subjective/Events-last exam Patient feels much better today Bacteremia gram negative so maintained on empiric broad spectrum (Meropenem) until sensitivities back Patient short of breath with the least amount of physical movement UTI's are recurrent Patient appears to be very declined overall and suspect this will be a continued decline due to cirrhosis progression Labs stable today, will move to 4th floor Denies any fever, chills, or chest pain at this time Focused Exam Lactate Level 06/13/22 07:45: Lactic Acid Level 1.29 Objective Exam Vital Signs Vital Signs Date Time Temp Pulse Resp B/P (MAP) Pulse Ox O2 Delivery O2 Flow Rate FiO2 06/15/22 10:00 63 14 117/51 (73) 97 NIV CPAP 2.00 06/15/22 07:48 36.8 06/15/22 05:24 2 Capillary Refill : General Appearance: Chronically ill, Obese HEENT: PERRL/EOMI, Moist Mucous Membranes Neck: Non Tender Respiratory: Chest Non Tender, No Accessory Muscle Use, No Respiratory Distress Cardiovascular: Regular Rate, Rhythm, No JVD Rectal: Deferred Extremity: Non Tender, No Calf Tenderness Neurologic/Psychiatric: Alert, Normal Mood/Affect Skin: Normal Color, Warm/Dry Lymphatic: No Adenopathy Results/Procedures Lab Laboratory Tests 06/15/22 04:55 Patient resulted labs reviewed. Assessment/Plan Assessment and Plan Assess & Plan/Chief Complaint Assessment: Encephalopathy due to sepsis and cirrhosis Sepsis due to UTI with gram-negative bacteremia - continue meropenem End-stage liver disease cirrhosis status post ablation of hepatocellular carcinoma tumor last week at NSTEMI likely type II Diabetes Super morbid obesity Chronic bilirubinemia Thrombocytopenia Left total knee replacement Dr Noriega required ARU complicated with left perineal thrombosis maintained on OAC until this admit Diabetes Hypertension NGUYEN on CPAP Hyperlipidemia Hypothyroidism Pacemaker Plan: Transfer to 4th floor IV fluids continue IV Meropenem High risk for overt liver failure Will obtain Advanced Directive Critical Care: Critically Ill Patient SASHA TILLMAN DO 06/15/222046: Subjective Subjective/Events-last exam Improved status Advanced directive will be obtained since that states no heroic measures Objective Exam General Appearance: No Apparent Distress, WD/WN, Chronically ill Respiratory: Lungs Clear, Normal Breath Sounds Cardiovascular: Regular Rate, Rhythm Neurologic/Psychiatric: Alert, Oriented x3 Assessment/Plan Assessment and Plan Assess & Plan/Chief Complaint Transfer to 4th Supervisory-Addendum Brief Verification & Attestation Participated in pt care: history, MDM, physical Personally performed: exam, history, MDM, supervision of care Care discussed with: Medical Student Procedures: n/a Results interpretation: Verified all documentation Verification and Attestation of Medical Student E/M Service A medical student performed and documented this service in my presence. I reviewed and verified all information documented by the medical student and made modifications to such information, when appropriate. I personally performed the physical exam and medical decision making. Sasha Tillman, Jun 15, 2022,20:46 WANDA CASTILLO Jun 15, 2022 11:02 SASHA TILLMAN DO Jun 15, 2022 20:47
--- NOTE | 2022-06-15 11:31 | Occupational Therapy Eval ---
OT Evaluation-General/PLF Medical Diagnosis Admission Date Jun 13, 2022 at 01:45 Medical Diagnosis: sepsis, UTI/NSTEMI Onset Date: Jun 13, 2022 Therapy Diagnosis Therapy Diagnosis: Impaired ADLs, strength and endurance Height/Weight Height (Feet): 5 Height (Inches): 2.00 Weight (Pounds): 306 Weight (Ounces): 0.0 Precautions Precautions/Isolations: Fall Prevention, Standard Precautions, Pressure Ulcer Referral Physician: Tom Medical History Pertinent Medical History: DM, HTN, Hypothroidism Current History Pt presented to hospital with fever, and later on diagnosed with a UTI, sepsis, and pneumonia. Pt reported that she was independent with all ADLs and just took extra breaks during IADLs for energy conservation during tasks. She does not have a shower chair and stood for the entirety of the shower, although stated that she fatigues easily with task. Her is always close by (especially for showering and toileting) in case of assist needed. Reviewed History: Yes Social History Home: 5th wheel trailer Current Living Status: Spouse Entry Into Home: Stairs With Railing Steps Into Home: 4 Steps Inside Home: 1 ADL-Prior Level of Function SCALE: Activities may be completed with or without assistive devices. 6-Wnklzbqytj-tfjfoiz completes the activity by him/herself with no assistance from a helper. 5-Set-up or Clean-up Assistance-helper sets up or cleans up; patient completes activity. [place] assists only prior to or following the activity. 4-Supervision or Touching Assistance-helper provides verbal cues and/or touching/steadying and/or contact guard assistance as patient completes activity. Assistance may be provided throughout the activity or intermittently. 3-Partial/Moderate Assistance-helper does LESS THAN HALF the effort. [place] li fts, holds or supports trunk or limbs, but provides less than half the effort. 2-Substantial/Maximal Assistance-helper does MORE THAN HALF the effort. [place] lifts or holds trunk or limbs and provides more than half the effort. 7-Octhdutwp-yepnzf does ALL the effort. Patient does none of the effort to complete the activity. Or, the assistance of 2 or more helpers is required for the patient to complete the activity. If activity was not attempted, code reason: 7-Patient Refused. 9-Not Applicable-not attempted and the patient did not perform the activity before the current illness, exacerbation or injury. 10-Not Attempted due to Environmental Limitations-(lack of equipment, weather restraints, etc.). 88-Not Attempted due to Medical Conditions or Safety Concerns. Self Care: Independent (Her sits outside of bathroom/shower to ensure she doesn't need help) Functional Cognition: Independent DME/Equipment: Grab Bars DME/Equipment Comments Pt stated that she used a folding chair in the shower when she had her knee replaced but does not use a shower chair now. She stated she fatigues quickly and would benefit from a shower chair now. She ambulated with a cane prior to admission, but mostly only used it outside of the camper. When ambulating in camper she reported furniture walking for safety. Drive Self: No (due to inability to see) OT Current Status Subjective Pt was just put back into bed with nursing present upon arrival. She agreed to OT evaluation. Appearance Pt was left in bed, lying on her side to help with pressure ulcers. All needs within reach. Mental Status/Objective Patient Orientation: Person, Place, Time, Situation Attachments: IV, Telemetry Current Glasses/Contacts: Yes (was supposed to have cataract surgery last tuesday) Hearing Aids: No Dentures/Partials: No Hand Dominance: Right Upper Extremity ROM WFL Upper Extremity Coordination Slightly impaired Upper Extremity Strength Shoulder strength: WNL Cleaning Laborer strength: WNL ADL-Treatment Eating (QC): 6 (per clinical judgment) Oral Hygiene (QC): 5 (per clinical judgment) Lower Body Dressing (QC): 2 (per clinical judgment) On/Off Footwear (QC): 1 Toileting Hygiene (QC): 1 (per pt report of PT wiping for her earlier today) Supine>sit: SBA. Sit>supine: MAX A to bring legs back into bed. She stated that she can usually don/doff socks/shoes independently by bringing leg onto side of bed, but was unable to demonstrate during eval. Pt often getting SOA, needs extra time to complete all tasks. Supervision to stand. Good standing balance with use of walker. Anticipate supervision/CGA for safety during clothing management at this time. Pt able to take 2-3 steps towards HOB with walker and supervision. Fatigues quickly, needs time to recover. Education OT Patient Education: Correct positioning, Energy conservation, Progress toward Goal/Update tx plan, Purpose of tx/functional activities, Rehab process Teaching Recipient: Patient Teaching Methods: Demonstration Response to Teaching: Verbalize Understanding OT Neck Band Operator Goals Fpc Goals Time Frame: Jun 25, 2022 Eating (QC): 6 Oral Hygiene (QC): 6 Toileting Hygiene (QC): 4 Shower/Bathe Self (QC): 4 Upper Body Dressing (QC): 6 Lower Body Dressing (QC): 4 On/Off Footwear (QC): 4 Additional Goals: 1-Demonstrate ADL Tasks, 2-Verbalize Understanding, 3- ImproveStrength/Shanice 1=Demonstrate adherence to instructed precautions during ADL tasks. 2=Patient will verbalize/demonstrate understanding of assistive devices/modifications for ADL. 3=Patient will improve strength/tolerance for activity to enable patient to perform ADL's. OT Education/Plan Problem List/Assessment Assessment: Decreased Activ Tolerance, Decreased UE Strength, Edema, Impaired Bed Mobility, Impaired Coordination, Impaired I ADL's, Impaired Self-Care Skills Discharge Recommendations Plan/Recommendations: Continue POC Therapy Discharge Recommendati: Post Acute OT Equpiment Recommendations-D/C: Bath Chair Treatment Plan/Plan of Care Treatment,Training & Education: Yes Patient would benefit from OT for education, treatment and training to promote independence in ADL's, mobility, safety and/or upper extremity function for ADL's. Plan of Care: ADL Retraining, Caregiver Training, Functional Mobility, UE Funct Exercise/Act, UE Neuromus Re-Ed/Coord Treatment Duration: Jun 25, 2022 Frequency: 3 times per week (3-5 x/week) Estimated Hrs Per Day: .25 hour per day Agreement: Yes Rehab Potential: Fair Time/GCodes Start Time: 10:49 Stop Time: 11:09 Total Time Billed (hr/min): 20 Billed Treatment Time 1 visit Kaley London OT Jun 15, 2022 11:31
--- NOTE | 2022-06-15 15:18 | Progress Note - Cardiology ---
Cardiology SOAP Progress Note Subjective: Feels somewhat better, but still generally weak and with a continuing feeling of malaise No n/v/d No cp or palp or syncope Objective: I&O/Vital Signs 06/15/22 06/15/22 06/15/22 06/15/22 04:00 04:00 05:00 05:24 Pulse 60 61 Resp 14 18 B/P (MAP) 92/46 (61) 119/52 (74) Pulse Ox 91 95 95 O2 Delivery NIV CPAP Room Air NIV CPAP NIV Bilevel O2 Flow Rate 2.00 2.00 FiO2 2 06/15/22 06/15/22 06/15/22 06/15/22 06:00 06:55 07:00 07:48 Temp 36.8 Pulse 65 60 61 Resp 18 16 B/P (MAP) 131/54 (79) 120/48 (72) Pulse Ox 95 91 O2 Delivery NIV CPAP NIV CPAP O2 Flow Rate 2.00 2.00 06/15/22 06/15/22 06/15/22 06/15/22 08:00 09:00 10:00 12:00 Temp 37.1 Pulse 70 65 63 60 Resp 23 20 14 16 B/P (MAP) 131/59 (83) 117/51 (73) 109/57 (74) Pulse Ox 96 95 97 94 O2 Delivery NIV CPAP NIV CPAP NIV CPAP NIV CPAP O2 Flow Rate 2.00 2.00 2.00 2.00 06/15/22 13:15 Pulse 64 06/15/22 00:00 Intake Total 2880 ml Output Total 650 ml Balance 2230 ml Weight (Pounds): 306 Weight (Ounces): 0.0 Weight (Calculated Kilograms): 138.182947 Constitutional: AAO x 3, well-developed, well-nourished Respiratory: No accessory muscle use; other (fair to good, bilat air entry) Cardiovascular: regular rate-rhythm, S1 and S2, systolic murmur (soft ANTOINETTE at card base) Gastrointestional: No tender; soft; No guarding, No rebound; audible bowel sounds Extremities: No clubbing, No cyanosis, No significant edema Neurologic/Psychiatric: oriented x 3, other (moves all limbs equally) Skin: No rash on exposed areas, No ulcerations on exposed areas Results/Procedures: Labs Laboratory Tests 06/14/22 15:55: Glucometer 154H 06/14/22 21:56: Glucometer 121H 06/15/22 04:55: White Blood Count 3.9L, Red Blood Count 3.39L, Hemoglobin 12.0, Hematocrit 35, Mean Corpuscular Volume 104H, Mean Corpuscular Hemoglobin 35H, Mean Corpuscular Hemoglobin Concent 34, Red Cell Distribution Width 15.0H, Platelet Count 45L, Mean Platelet Volume 12.0, Immature Granulocyte % (Auto) 0, Neutrophils (%) (Auto) 80H, Lymphocytes (%) (Auto) 7L, Monocytes (%) (Auto) 11, Eosinophils (%) (Auto) 2, Basophils (%) (Auto) 1, Neutrophils # (Auto) 3.1, Lymphocytes # (Auto) 0.3L, Monocytes # (Auto) 0.4, Eosinophils # (Auto) 0.1, Basophils # (Auto) 0.0, Immature Granulocyte # (Auto) 0.0, Prothrombin Time 17.1H, INR Comment 1.4, Sodium Level 136, Potassium Level 3.7, Chloride Level 112H, Carbon Dioxide Level 16L, Anion Gap 8, Blood Urea Nitrogen 20H, Creatinine 0.85, Estimat Glomerular Filtration Rate 75, BUN/Creatinine Ratio 24, Glucose Level 118H, Calcium Level 8.6, Corrected Calcium 9.9, Phosphorus Level 2.2L, Magnesium Level 1.8, Total Bilirubin 7.0H, Aspartate Amino Transf (AST/SGOT) 62H, Alanine Aminotransferase (ALT/SGPT) 34, Alkaline Phosphatase 70, Ammonia 67H, Total Protein 4.6L, Albumin 2.4L 06/15/22 10:46: Glucometer 107 Microbiology 06/13/22 Blood Culture - Preliminary, Resulted No growth 06/13/22 Urine Culture - Final, Complete Escherichia coli Laboratory Tests 06/14/22 05:03 06/15/22 04:55 A/P: Assessment: UTI (and ?pnuemonia) with sepsis Persistent thrombocytopenia Labile BP (episodes of hypotension during this hosp) Mild troponin elevation of undetermined etiology - Card cath of February 2019: no significant CAD, LVEF 60%, elevated LVEDP - Echo of 01-07-22 : LVEF 60-65% S/P PPM implant on 12-16-20 for reasons noted below - H/o ILR implant on Aug 19, 2020 d/t report of palpitations and syncope - pauses of up to 5 sec on tele in Aug and Sep 2020 (improved after cessation of beta-paris then) - 4 second pause on 11/21/20 (without her being on any rate-lowering agents) DM II - managed by PCP Chronic low back pain GI - H/o colon mass removal (benign) and subsequent surgery for small intestinal obstruction for which she underwent partial small intestine removal, according to her. This was in or around 2014 - Hepatic cirrhosis of undetermined etiology, followed and managed by Dr Mcduffie at [facility] H/o DVT in the post-op phase of L TKR in early 2021 - has since been on anticoag that is being managed by Dr Vega NGUYEN - treated with CPAP Fam h/o early CAD - father of [place] at age 52 Plan: * Complex management due to multiple comorbidities * Continue current regimen * Not suitable for DAPT or anticoag, given significant thrombocytopenia of undetermined etiology. Continue single agent (ASA) if tolerated * Monitor labs closely * Dr Santos managing UTI and sepsis and thrombocytopenia CHARLINE CAT MD FACP [facility] CCDS Jun 15, 2022 15:18
[2022-06-16] MEDS: ONDANSETRON 4 MG/2 ML (SDV) Z0FRAN IVP PRN ×2 (00:21→07:42)
[2022-06-16] MEDS: MEROPENEM 500 MG in NS (IVPB) 100 ML IV SCH ×2 (00:21→05:46)
[2022-06-16 04:49] LABS: BASOPHILS % (AUTO) 1 % (0-10); MEAN CORPUSCULAR VOLUME 102 fL (80-99); MONOCYTES # (AUTO) 0.8 10^3/uL (0.0-1.0)
[2022-06-16 04:51] LABS: EOSINOPHILS # (AUTO) 0.4 10^3/uL (0.0-0.3); EOSINOPHILS % (AUTO) 7 % (0-10); HEMATOCRIT 31 % (35-52); LYMPHOCYTES # (AUTO) 0.7 10^3/uL (1.0-4.0); LYMPHOCYTES % (AUTO) 13 % (12-44); MEAN CORPUSCULAR HEMOGLOBIN 36 pg (25-34); MEAN CORPUSCULAR HGB CONC 36 g/dL (32-36); MEAN PLATELET VOLUME 11.8 fL (9.0-12.2); MONOCYTES % (AUTO) 14 % (0-12); NEUTROPHILS # (AUTO) 3.8 10^3/uL (1.8-7.8); NEUTROPHILS % (AUTO) 66 % (42-75); PLATELET COUNT 43 10^3/uL (130-400); WHITE BLOOD COUNT 5.8 10^3/uL (4.3-11.0)
[2022-06-16 05:02] LABS: ALBUMIN 2.4 GM/DL (3.2-4.5)
[2022-06-16 05:03] LABS: POTASSIUM 3.9 MMOL/L (3.6-5.0)
[2022-06-16 05:04] LABS: CALCIUM 8.4 MG/DL (8.5-10.1)
[2022-06-16 05:05] LABS: TOTAL PROTEIN 4.5 GM/DL (6.4-8.2)
[2022-06-16 05:07] LABS: BILIRUBIN,TOTAL 6.7 MG/DL (0.1-1.0)
[2022-06-16 05:09] LABS: CREATININE SERUM 0.78 MG/DL (0.60-1.30)
[2022-06-16] MEDS: inSUlin ASPART (NovoLOG) 1 UNIT/0.01 ML (CHARGE PER UNIT) SC SCH ×4 (05:46→20:04)
[2022-06-16] MEDS ORDERED: ONDANSETRON 4 MG (ZOFRAN) ORAL DISSOLVE TAB PO PRN (10:30)
[2022-06-16] MEDS ORDERED: CYANOCOBALAMIN INJ 1000 MCG/ML IM SCH ×2 (10:30→11:30)
[2022-06-16] MEDS ORDERED: diphenhydrAMINE 25 MG TAB (BENADRYL) PO PRN (10:30)
--- NOTE | 2022-06-16 10:46 | Physical Therapy Daily Note ---
PT Daily Note-Current Subjective Patient sitting EOB pre tx, agrees to PT, has no complaints of pain. Appearance Patient in bed post tx with nurse call, phone, tray, all needs met. Mental Status Patient Orientation: Person, Place, Situation Transfers SCALE: Activities may be completed with or without assistive devices. 8-Sdepwoscqw-yjjxmzt completes the activity by him/herself with no assistance from a helper. 5-Set-up or Clean-up Assistance-helper sets up or cleans up; patient completes activity. [place] assists only prior to or following the activity. 4-Supervision or Touching Assistance-helper provides verbal cues and/or touching /steadying and/or contact guard assistance as patient completes activity. Assistance may be provided throughout the activity or intermittently. 3-Partial/Moderate Assistance-helper does LESS THAN HALF the effort. Daphne lifts, holds or supports trunk or limbs, but provides less than half the effort. 2-Substantial/Maximal Assistance-helper does MORE THAN HALF the effort. [place] lifts or holds trunk or limbs and provides more than half the effort. 5-Hdkxnvdeb-yxhrty does ALL the effort. Patient does none of the effort to complete the activity. Or, the assistance of 2 or more helpers is required for the patient to complete the activity. If activity was not attempted, code reason: 7-Patient Refused. 9-Not Applicable-not attempted and the patient did not perform the activity before the current illness, exacerbation or injury. 10-Not Attempted due to Environmental Limitations-(lack of equipment, weather restraints, etc.). 88-Not Attempted due to Medical Conditions or Safety Concerns. Roll Left & Right (QC): 4 Sit to Lying (QC): 3 Sit to Stand (QC): 4 Chair/Mcn-fd-Kjanh Xfer(QC): 4 Gait Training Distance: 80' Walk 10 feet (QC): 4 Walk 50 ft with 2 Turns(QC): 4 Gait Persons Needed: 1 Gait Assistive Device: FWW slow but steady ambulation, slightly SOB after ambulation but recovered quickly after sitting down Exercises Seated Therapy Exercises: Ankle pumps, Long arc quads Seated Reps: 20 Treatments bed mobility and transfers, ambulation, LE ROM Assessment Current Status: Fair Progress SOB with activity PT Motors Assembler Goals Motors Assembler Goals PT Motors Assembler Goals Time Frame: Jul 03, 2022 Roll Left & Right (QC): 6 Sit to Lying (QC): 6 Lying-Sitting on Side/Bed(QC): 6 Sit to Stand (QC): 6 Chair/Scc-xz-Rueyr Xfer(QC): 6 Toilet Transfer (QC): 6 Walk 10 feet (QC): 6 Walk 50ft with 2 Turns (QC): 6 Walk 150 ft (QC): 6 PT Plan Problem List Problem List: Activity Tolerance, Functional Strength, Safety, Balance, Gait, Transfer, Bed Mobility, ROM Treatment/Plan Treatment Plan: Continue Plan of Care Treatment Plan: Bed Mobility, Education, Functional Activity Shanice, Functional Strength, Gait, Safety, Therapeutic Exercise, Transfers Treatment Duration: Jul 03, 2022 Frequency: 6 times per week Estimated Hrs Per Day: .25 hour per day Patient and/or Family Agrees t: Yes Safety Risks/Education Patient Education: Gait Training, Transfer Techniques, Correct Positioning, Safety Issues Teaching Recipient: Patient Teaching Methods: Demonstration, Discussion Response to Teaching: Reinforcement Needed Time/GCodes Time In: 1008 Time Out: 1018 Total Billed Treatment Time: 10 Total Billed Treatment 1 visit FA BRANDY LILLY PT Jun 16, 2022 10:46
[2022-06-16] MEDS: ASPIRIN E.C. 81 MG (ECOTRIN) TAB PO SCH (10:47)
[2022-06-16] MEDS: meTOprolol TARTRATE 25 MG (LOPRESSOR) TABLET PO SCH ×2 (10:47→20:06)
--- NOTE | 2022-06-16 11:33 | Occupational Ther Daily Note ---
OT Current Status-Daily Note Subjective Pt laying in bed upon OTs arrival. She stated she would love to brush her teeth as it has been a few days since she has. Therapist noted that her catheter had been removed and she stated that she hasn't had it in a few days, although she had it yesterday during eval. Appearance Pt left lying in bed upon completion of session. All needs within reach. Mental Status/Objective Patient Orientation: Person, Place, Situation Attachments: IV ADL-Treatment Therapy Code Descriptions/Definitions Functional [place] Measure: 0=Not Assessed/NA 4=Minimal Assistance 1=Total Assistance 5=Supervision or Setup 2=Maximal Assistance 6=Modified [place] 3=Moderate Assistance 7=Complete IndependenceSCALE: Activities may be completed with or without assistive devices. 8-Psapqudzhc-yagyzta completes the activity by him/herself with no assistance from a helper. 5-Set-up or Clean-up Assistance-helper sets up or cleans up; patient completes activity. [place] assists only prior to or following the activity. 4-Supervision or Touching Assistance-helper provides verbal cues and/or touching/steadying and/or contact guard assistance as patient completes activity. Assistance may be provided throughout the activity or intermittently. 3-Partial/Moderate Assistance-helper does LESS THAN HALF the effort. [place] lifts, holds or supports trunk or limbs, but provides less than half the effort. 2-Substantial/Maximal Assistance-helper does MORE THAN HALF the effort. [place] lifts or holds trunk or limbs and provides more than half the effort. 8-Glxufrgjf-uhipkm does ALL the effort. Patient does none of the effort to complete the activity. Or, the assistance of 2 or more helpers is required for the patient to complete the activity. If activity was not attempted, code reason: 7-Patient Refused. 9-Not Applicable-not attempted and the patient did not perform the activity before the current illness, exacerbation or injury. 10-Not Attempted due to Environmental Limitations-(lack of equipment, weather restraints, etc.). 88-Not Attempted due to Medical Conditions or Safety Concerns. Oral Hygiene (QC): 4 With head up in bed, pt was given personal grooming bag to retrieve oral hygiene products. Min assist for finding toothpaste. Set up and min cues for sequencing during oral hygiene was required. Pt required set up assist to wash face with wet washcloth. Mod assist x2 and min verbal cues for execution was required for pt to move up in bed. Education OT Patient Education: Correct positioning, Energy conservation, Modified ADL techniques, Progress toward Goal/Update tx plan, Purpose of tx/functional activities, Rehab process Teaching Recipient: Patient Teaching Methods: Discussion Response to Teaching: Verbalize Understanding, Return Demonstration OT Long-Term Goals Neuro Intensivist Physician Goals Time Frame: Jun 25, 2022 Eating (QC): 6 Oral Hygiene (QC): 6 Toileting Hygiene (QC): 4 Shower/Bathe Self (QC): 4 Upper Body Dressing (QC): 6 Lower Body Dressing (QC): 4 On/Off Footwear (QC): 4 Additional Goals: 1-Demonstrate ADL Tasks, 2-Verbalize Understanding, 3- ImproveStrength/Shanice 1=Demonstrate adherence to instructed precautions during ADL tasks. 2=Patient will verbalize/demonstrate understanding of assistive devices/mod ifications for ADL. 3=Patient will improve strength/tolerance for activity to enable patient to perform ADL's. OT Education/Plan Problem List/Assessment Assessment: Decreased Activ Tolerance, Decreased UE Strength, Impaired Bed Mobility, Impaired Cognition, Impaired Coordination, Impaired I ADL's, Impaired Self-Care Skills Discharge Recommendations Plan/Recommendations: Continue POC Therapy Discharge Recommendati: Post Acute OT Treatment Plan/Plan of Care Treatment,Training & Education: Yes Patient would benefit from OT for education, treatment and training to promote independence in ADL's, mobility, safety and/or upper extremity function for ADL's. Plan of Care: ADL Retraining, Caregiver Training, Functional Mobility, UE Funct Exercise/Act, UE Neuromus Re-Ed/Coord Treatment Duration: Jun 25, 2022 Frequency: 3 times per week (3-5 x/week) Estimated Hrs Per Day: .25 hour per day Agreement: Yes Rehab Potential: Fair Time/GCodes Start Time: 10:58 Stop Time: 11:14 Total Time Billed (hr/min): 16 Billed Treatment Time 1 visit ADL Kaley Pelayo OT Jun 16, 2022 11:33
[2022-06-16] MEDS: cefTRIAXone 1 GM PRE-MIX 50 ML IV SCH (11:54)
[2022-06-16] MEDS: RIFAXIMIN 550 MG TABLET (XIFAXAN) PO SCH ×2 (11:54→22:03)
--- NOTE | 2022-06-16 12:03 | Diagnostic Imaging Report ---
PROCEDURE: US Abdomen, limited. TECHNIQUE: Multiple realtime grayscale images were obtained over the abdomen in various projections. INDICATION: Ascites Liver measures 15 cm in length with core echo texture which can be result of cirrhosis. Gallbladder is absent and bowel gas obscures majority of the extrahepatic biliary tree. Pancreas is partially obscured without evidence of lesion. No abdominal aortic or inferior vena caval abnormality is identified. Right kidney has a normal appearance. There is mild ascites. IMPRESSION: Heterogeneous liver parenchyma may be on the basis of cirrhosis with mild ascites present. Otherwise no acute abnormality seen on limited study. Dictated by: Dictated on workstation # [id number]
--- NOTE | 2022-06-16 13:21 | Progress Note - Hospitalist ---
WANDA CASTILLO 06/16/22 1321: Subjective HPI/CC On Admission Date Seen by Provider: Jun 16, 2022 Time Seen by Provider: 13:16 Chief complaint: Altered mental status due to sepsis from UTI and gram-negative bacteremia with cirrhosis and chronic bilirubinemia HPI: This is a 66-year-old female with a past medical history of cirrhosis from fatty liver with morbid obesity BMI 67 who recently had ablation of hepat ocellular carcinoma at last week who presented to ER with weakness and fever found to have UTI and pneumonia. Patient remains very borderline critically ill due to chronic liver dysfunction. At this current time she is having rigors while I am examining her. Blood cultures are positive for gram-negative bacteria. Meropenem was initiated initially broad-spectrum. Elevated troponin is likely type II NSTEMI per Dr. Thompson. Thrombocytopenia is a bleeding risk so unable to initiate high-dose Lovenox. Subjective/Events-last exam Today patient is having less confusion. States she is able to have conversations now without thinking too long. Also reports some abdominal discomfort which started last night. States the Zofran is helping her to feel less nauseous. Denies any other complaints at this time. Objective Exam Vital Signs Vital Signs Date Time Temp Pulse Resp B/P (MAP) Pulse Ox O2 Delivery O2 Flow Rate FiO2 06/16/22 12:00 98 Room Air 06/16/22 08:00 37.0 61 144/72 (96) 06/15/22 23:39 2 06/15/22 12:00 16 2.00 Capillary Refill : General Appearance: Chronically ill, Obese HEENT: Moist Mucous Membranes Neck: Non Tender, Supple Respiratory: Chest Non Tender, No Accessory Muscle Use, No Respiratory Distress Cardiovascular: No JVD Gastrointestinal: Distended Rectal: Deferred Neurologic/Psychiatric: Alert, Normal Mood/Affect Skin: Normal Color, Warm/Dry Lymphatic: No Adenopathy Results/Procedures Lab Laboratory Tests 06/16/22 04:32 Patient resulted labs reviewed. 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 until this admit Hypertension NGUYEN on CPAP Hyperlipidemia Hypothyroidism Pacemaker Plan: Transfer to 4th floor IV fluids continue IV Meropenem Will obtain US of liver High risk for overt liver failure Will obtain Advanced Directive Critical Care: Critically Ill Patient SASHA TILLMAN DO 06/16/222034: Subjective Subjective/Events-last exam Pt is doing alot better Still dyspneic Urine culture and blood cultures reviewed, switched Meropenem to Rocephin PT and OT working with her Overall doing pretty well Abdominal US ordered Review of Systems General: Fatigue, Malaise Objective Exam General Appearance: No Apparent Distress, WD/WN, Chronically ill, Obese Respiratory: Normal Breath Sounds, Accessory Muscle Use Cardiovascular: Regular Rate, Rhythm Neurologic/Psychiatric: Alert, Oriented x3 Assessment/Plan Assessment and Plan Assess & Plan/Chief Complaint Change Armando to Rocephin based on Cx Supervisory-Addendum Brief Verification & Attestation Participated in pt care: history, MDM, physical Personally performed: exam, history, MDM, supervision of care Care discussed with: Medical Student Procedures: n/a Results interpretation: Verified all documentation Verification and Attestation of Medical Student E/M Service A medical student performed and documented this service in my presence. I reviewed and verified all information documented by the medical student and made modifications to such information, when appropriate. I personally performed the physical exam and medical decision making. Sasha Tillman, Jun 16, 2022,20:33 WANDA CASTILLO Jun 16, 2022 13:21 SASHA TILLMAN DO Jun 16, 2022 20:35
--- NOTE | 2022-06-16 15:00 | Progress Note - Cardiology ---
Cardiology SOAP Progress Note Subjective: No cp or palp or syncope Gen malaise and weakness are slowly improving No n/v/d Objective: I&O/Vital Signs 06/16/22 06/16/22 06/16/22 06/16/22 04:00 04:00 04:01 07:35 Temp 37.2 Pulse 60 61 B/P (MAP) 141/74 (96) Pulse Ox 98 94 O2 Delivery Room Air Room Air 06/16/22 06/16/22 06/16/22 06/16/22 08:00 08:00 08:00 12:00 Temp 37.0 Pulse 61 61 B/P (MAP) 141/68 (92) 144/72 (96) Pulse Ox 96 95 98 98 O2 Delivery Room Air Room Air Room Air Room Air 06/16/22 13:45 Pulse 63 06/16/22 00:00 Intake Total 2100 ml Output Total 625 ml Balance 1475 ml Weight (Pounds): 306 Weight (Ounces): 0.0 Weight (Calculated Kilograms): 138.181470 Constitutional: AAO x 3, well-developed, well-nourished Respiratory: No accessory muscle use; other (fair to good, bilat air entry) Cardiovascular: regular rate-rhythm, S1 and S2, systolic murmur (soft ANTOINETTE at card base) Gastrointestional: No tender; soft; No guarding, No rebound; audible bowel sounds Extremities: No clubbing, No cyanosis, No significant edema Neurologic/Psychiatric: oriented x 3, other (moves all limbs equally) Skin: No rash on exposed areas, No ulcerations on exposed areas Results/Procedures: Labs Laboratory Tests 06/15/22 16:48: Glucometer 133H 06/15/22 20:56: Glucometer 128H 06/16/22 04:32: White Blood Count 5.8, Red Blood Count 3.04L, Hemoglobin 11.0L, Hematocrit 31L, Mean Corpuscular Volume 102H, Mean Corpuscular Hemoglobin 36H, Mean Corpuscular Hemoglobin Concent 36, Red Cell Distribution Width 14.6H, Platelet Count 43L, Mean Platelet Volume 11.8, Immature Granulocyte % (Auto) 1, Neutrophils (%) (Auto) 66, Lymphocytes (%) (Auto) 13, Monocytes (%) (Auto) 14H, Eosinophils (%) (Auto) 7, Basophils (%) (Auto) 1, Neutrophils # (Auto) 3.8, Lymphocytes # (Auto) 0.7L, Monocytes # (Auto) 0.8, Eosinophils # (Auto) 0.4H, Basophils # (Auto) 0.0, Immature Granulocyte # (Auto) 0.0, Percent Immature Platelet Fraction 4.3, Sodium Level 135, Potassium Level 3.9, Chloride Level 110H, Carbon Dioxide Level 17L, Anion Gap 8, Blood Urea Nitrogen 21H, Creatinine 0.78, Estimat Glomerular Filtration Rate 83, BUN/Creatinine Ratio 27, Glucose Level 137H, Calcium Level 8.4L, Corrected Calcium 9.7, Magnesium Level 1.7, Total Bilirubin 6.7H, Aspartate Amino Transf (AST/SGOT) 74H, Alanine Aminotransferase (ALT/SGPT) 39, Alkaline Phosphatase 72, Total Protein 4.5L, Albumin 2.4L 06/16/22 10:31: Glucometer 140H Microbiology 06/13/22 Blood Culture - Preliminary, Resulted No growth 06/13/22 Urine Culture - Final, Complete Escherichia coli Laboratory Tests 06/15/22 04:55 06/16/22 04:32 A/P: Assessment: UTI (and ?pnuemonia) with sepsis Persistent thrombocytopenia Labile BP (episodes of hypotension during this hosp) Mild troponin elevation of undetermined etiology - Card cath of February 2019: no significant CAD, LVEF 60%, elevated LVEDP - Echo of 01-07-22 : LVEF 60-65% S/P PPM implant on 12-16-20 for reasons noted below - H/o ILR implant on Aug 19, 2020 d/t report of palpitations and syncope - pauses of up to 5 sec on tele in Aug and Sep 2020 (improved after cessation of beta-par[place] then) - 4 second pause on 11/21/20 (without her being on any rate-lowering agents) DM II - managed by PCP Chronic low back pain GI - H/o colon mass removal (benign) and subsequent surgery for small intestinal obstruction for which she underwent partial small intestine removal, according to her. This was in or around 2014 - Hepatic cirrhosis of undetermined etiology, followed and managed by Dr Mcduffie at [facility] H/o DVT in the post-op phase of L TKR in early 2021 - has since been on anticoag that is being managed by Dr Gary NGUYEN - treated with CPAP Fam h/o early CAD - father of [place] at age 52 Plan: * Complex management due to multiple comorbidities * Continue current regimen * Not suitable for DAPT or anticoag, given significant thrombocytopenia of undetermined etiology. Continue single agent (ASA) if tolerated * Monitor labs closely * Dr Santso managing UTI and sepsis and thrombocytopenia CHARLINE CAT MD FACP [facility] CCDS Jun 16, 2022 15:00
[2022-06-16 16:40] VITALS: BP 139/66
[2022-06-16 19:28] VITALS: BP 128/60
[2022-06-16] MEDS: MELATONIN 10 MG TABLET PO SCH (20:06)
[2022-06-16 23:26] VITALS: BP 123/61
[2022-06-17] MEDS: ONDANSETRON 4 MG/2 ML (SDV) Z0FRAN IVP PRN (01:11)
[2022-06-17 03:06] VITALS: BP 101/55
[2022-06-17] MEDS: inSUlin ASPART (NovoLOG) 1 UNIT/0.01 ML (CHARGE PER UNIT) SC SCH ×4 (05:28→20:08)
[2022-06-17] MEDS: LEVOTHYROXINE 100 MCG (LEVOTHROID) TAB PO SCH (05:38)
[2022-06-17 06:26] LABS: BASOPHILS # (AUTO) 0.1 10^3/uL (0.0-0.1); BASOPHILS % (AUTO) 1 % (0-10); HEMOGLOBIN 12.6 g/dL (11.5-16.0)
[2022-06-17 06:30] LABS: ALBUMIN 2.5 GM/DL (3.2-4.5); POTASSIUM 4.7 MMOL/L (3.6-5.0)
[2022-06-17 06:31] LABS: CALCIUM 8.6 MG/DL (8.5-10.1)
[2022-06-17 06:33] LABS: TOTAL PROTEIN 5.2 GM/DL (6.4-8.2)
[2022-06-17 06:34] LABS: BILIRUBIN,TOTAL 5.1 MG/DL (0.1-1.0)
[2022-06-17 06:35] LABS: EOSINOPHILS # (AUTO) 0.6 10^3/uL (0.0-0.3); EOSINOPHILS % (AUTO) 5 % (0-10); HEMATOCRIT 37 % (35-52); LYMPHOCYTES # (AUTO) 1.4 10^3/uL (1.0-4.0); LYMPHOCYTES % (AUTO) 13 % (12-44); MEAN CORPUSCULAR HEMOGLOBIN 36 pg (25-34); MEAN CORPUSCULAR HGB CONC 34 g/dL (32-36); MEAN CORPUSCULAR VOLUME 106 fL (80-99); MEAN PLATELET VOLUME 11.4 fL (9.0-12.2); MONOCYTES % (AUTO) 10 % (0-12); NEUTROPHILS # (AUTO) 7.3 10^3/uL (1.8-7.8); NEUTROPHILS % (AUTO) 71 % (42-75); PLATELET COUNT 54 10^3/uL (130-400); WHITE BLOOD COUNT 10.3 10^3/uL (4.3-11.0)
[2022-06-17 06:36] LABS: CREATININE SERUM 0.8 MG/DL (0.60-1.30)
[2022-06-17 07:41] VITALS: BP 105/68
[2022-06-17] MEDS: meTOproloL SUCCINATE 50 MG (TOPROL XL) TAB PO SCH (09:26)
[2022-06-17] MEDS: ASPIRIN E.C. 81 MG (ECOTRIN) TAB PO SCH (09:26)
[2022-06-17] MEDS: SERTRALINE 100 MG (ZOLOFT) TAB PO SCH (09:26)
[2022-06-17] MEDS: VITAMIN D3 125 MCG (5,000 UNITS) CAPSULE PO SCH (09:26)
[2022-06-17] MEDS: eZETimibe 10 MG (ZETIA) TABLET PO SCH (09:26)
[2022-06-17] MEDS: RIFAXIMIN 550 MG TABLET (XIFAXAN) PO SCH ×2 (09:26→22:03)
[2022-06-17] MEDS: cefTRIAXone 1 GM PRE-MIX 50 ML IV SCH (09:27)
--- NOTE | 2022-06-17 10:05 | Physical Therapy Daily Note ---
PT Daily Note-Current Subjective Patient agrees to PT. No c/o at this time. Patient voices she hopes to go home soon. Mental Status Patient Orientation: Normal For Age Transfers SCALE: Activities may be completed with or without assistive devices. 3-Pkheoirdvu-uwnsiig completes the activity by him/herself with no assistance from a helper. 5-Set-up or Clean-up Assistance-helper sets up or cleans up; patient completes activity. [place] assists only prior to or following the activity. 4-Supervision or Touching Assistance-helper provides verbal cues and/or touching/steadying and/or contact guard assistance as patient completes activity. Assistance may be provided throughout the activity or intermittently. 3-Partial/Moderate Assistance-helper does LESS THAN HALF the effort. [place] lifts, holds or supports trunk or limbs, but provides less than half the effort. 2-Substantial/Maximal Assistance-helper does MORE THAN HALF the effort. [place] lifts or holds trunk or limbs and provides more than half the effort. 7-Bsnpmgpmt-siolrn does ALL the effort. Patient does none of the effort to complete the activity. Or, the assistance of 2 or more helpers is required for the patient to complete the activity. If activity was not attempted, code reason: 7-Patient Refused. 9-Not Applicable-not attempted and the patient did not perform the activity before the current illness, exacerbation or injury. 10-Not Attempted due to Environmental Limitations-(lack of equipment, weather restraints, etc.). 88-Not Attempted due to Medical Conditions or Safety Concerns. Sit to Stand (QC): 6 Chair/Msu-mx-Pazew Xfer(QC): 6 Toilet Transfer (QC): 6 Gait Training Distance: 200' Walk 10 feet (QC): 6 Walk 50 ft with 2 Turns(QC): 6 Walk 150 ft (QC): 6 Gait Assistive Device: FWW slow, steady/noted increase SOA with minimal activity Assessment PT did assist patient with cleansing after BM due to patient's inability to perform. PT to increase activity as tolerated by patient. PT Fdc Goals Sr Solutions Consultant Goals PT Fdc Goals Time Frame: Jul 03, 2022 Roll Left & Right (QC): 6 Sit to Lying (QC): 6 Lying-Sitting on Side/Bed(QC): 6 Sit to Stand (QC): 6 Chair/Gsy-ex-Nddzd Xfer(QC): 6 Toilet Transfer (QC): 6 Walk 10 feet (QC): 6 Walk 50ft with 2 Turns (QC): 6 Walk 150 ft (QC): 6 PT Plan Treatment/Plan Treatment Plan: Continue Plan of Care Treatment Plan: Bed Mobility, Education, Functional Activity Shanice, Functional Strength, Gait, Safety, Therapeutic Exercise, Transfers Treatment Duration: Jul 03, 2022 Frequency: 6 times per week Estimated Hrs Per Day: .25 hour per day Patient and/or Family Agrees t: Yes Time/GCodes Time In: 845 Time Out: 855 Total Billed Treatment Time: 10 Total Billed Treatment 1 visit FA 10 min ROSEMARIE HAWKINS PT Jun 17, 2022 10:05
--- NOTE | 2022-06-17 10:11 | Progress Note - Cardiology ---
Cardiology SOAP Progress Note Subjective: Gen malaise and weakness No cp or palp or syncope No shortness of breath at rest No focal weaknesss Objective: I&O/Vital Signs 06/16/22 06/17/22 06/17/22 06/17/22 23:26 01:00 03:06 07:00 Temp 36.6 36.6 Pulse 60 60 63 63 Resp 20 20 B/P (MAP) 123/61 (81) 101/55 (70) Pulse Ox 94 95 O2 Delivery NIV CPAP NIV CPAP 06/17/22 06/17/22 06/17/22 07:31 07:41 09:20 Temp 36.7 Pulse 57 Resp 18 B/P (MAP) 105/68 (80) Pulse Ox 96 98 O2 Delivery Room Air NIV CPAP Room Air 06/16/22 23:59 Intake Total 390 ml Balance 390 ml Weight (Pounds): 306 Weight (Ounces): 0.0 Weight (Calculated Kilograms): 138.326847 Constitutional: AAO x 3, well-developed, well-nourished Respiratory: No accessory muscle use; other (fair to good, bilat air entry) Cardiovascular: regular rate-rhythm, S1 and S2, systolic murmur (soft ANTOINETTE at card base) Gastrointestional: No tender; soft; No guarding, No rebound; audible bowel sounds Extremities: No clubbing, No cyanosis, No significant edema Neurologic/Psychiatric: oriented x 3, other (moves all limbs equally) Skin: No rash on exposed areas, No ulcerations on exposed areas Results/Procedures: Labs Laboratory Tests 06/16/22 10:31: Glucometer 140H 06/16/22 20:04: Glucometer 155H 06/17/22 05:15: Glucometer 124H 06/17/22 06:04: White Blood Count 10.3, Red Blood Count 3.49L, Hemoglobin 12.6, Hematocrit 37, Mean Corpuscular Volume 106H, Mean Corpuscular Hemoglobin 36H, Mean Corpuscular Hemoglobin Concent 34, Red Cell Distribution Width 14.8H, Platelet Count 54L, Mean Platelet Volume 11.4, Immature Granulocyte % (Auto) 1, Neutrophils (%) (Auto) 71, Lymphocytes (%) (Auto) 13, Monocytes (%) (Auto) 10, Eosinophils (%) (Auto) 5, Basophils (%) (Auto) 1, Neutrophils # (Auto) 7.3, Lymphocytes # (Auto) 1.4, Monocytes # (Auto) 1.0, Eosinophils # (Auto) 0.6H, Basophils # (Auto) 0.1, Immature Granulocyte # (Auto) 0.1, Percent Immature Platelet Fraction 4.5, Sodium Level 133L, Potassium Level 4.7, Chloride Level 111H, Carbon Dioxide Level 13L, Anion Gap 9, Blood Urea Nitrogen 18, Creatinine 0.80, Estimat Glomerular Filtration Rate 80, BUN/Creatinine Ratio 23, Glucose Level 134H, Calcium Level 8.6, Corrected Calcium 9.8, Total Bilirubin 5.1H, Aspartate Amino Transf (AST/SGOT) 79H, Alanine Aminotransferase (ALT/SGPT) 44, Alkaline Phosphatase 78, Total Protein 5.2L, Albumin 2.5L Microbiology 06/13/22 Blood Culture - Preliminary, Resulted No growth 06/13/22 Urine Culture - Final, Complete Escherichia coli Laboratory Tests 06/16/22 04:32 06/17/22 06:04 A/P: Assessment: UTI (and ?pnuemonia) with sepsis Persistent thrombocytopenia Labile BP (episodes of hypotension during this hosp) Mild troponin elevation probably due to sepsis (type 2 ID) - Card cath of February 2019: no significant CAD, LVEF 60%, elevated LVEDP - Echo of 01-07-22 : LVEF 60-65% S/P PPM implant on 12-16-20 for reasons noted below - H/o ILR implant on Aug 19, 2020 d/t report of palpitations and syncope - pauses of up to 5 sec on tele in Aug and Sep 2020 (improved after cessation of beta-paris then) - 4 second pause on 11/21/20 (without her being on any rate-lowering agents) DM II - managed by PCP Chronic low back pain GI - H/o colon mass removal (benign) and subsequent surgery for small intestinal obstruction for which she underwent partial small intestine removal, according to her. This was in or around 2014 - Hepatic cirrhosis of undetermined etiology, followed and managed by Dr Mcduffie at [facility] H/o DVT in the post-op phase of L TKR in early 2021 - has since been on anticoag that is being managed by Dr Gary CEDILLO - treated with CPAP Fam h/o early CAD - father of ID at age 54 Plan: * Complex management due to multiple comorbidities * Continue current regimen * Not suitable for DAPT or anticoag, given significant thrombocytopenia of undetermined etiology. Continue single agent (ASA) if tolerated * Monitor labs closely * Dr Santos managing UTI and sepsis and thrombocytopenia CHARLINE CAT MD FACP [facility] Jun 17, 2022 10:11
--- NOTE | 2022-06-17 10:58 | Occupational Ther Daily Note ---
OT Current Status-Daily Note Subjective Pt sitting in recliner. Pt agrees to therapy. No c/o pain at this time. Pt states she feels much better than yesterday. Mental Status/Objective Patient Orientation: Person, Place, Time, Situation ADL-Treatment Pt agrees to participate in oral care. Setup oral care, pt sitting in recliner and able to open toothpaste, apply toothpaste, brush teeth and rinse by self. Pt denies change of clothes stating she will be showering later today. Pt left in recliner call light/phone in reach. All needs met in room. Therapy Code Descriptions/Definitions Functional [place] Measure: 0=Not Assessed/NA 4=Minimal Assistance 1=Total Assistance 5=Supervision or Setup 2=Maximal Assistance 6=Modified [place] 3=Moderate Assistance 7=Complete IndependenceSCALE: Activities may be completed with or without assistive devices. 9-Ovolcbdqbm-uchexqr completes the activity by him/herself with no assistance from a helper. 5-Set-up or Clean-up Assistance-helper sets up or cleans up; patient completes activity. [place] assists only prior to or following the activity. 4-Supervision or Touching Assistance-helper provides verbal cues and/or touching/steadying and/or contact guard assistance as patient completes activity. Assistance may be provided throughout the activity or intermittently. 3-Partial/Moderate Assistance-helper does LESS THAN HALF the effort. [place] lifts, holds or supports trunk or limbs, but provides less than half the effort. 2-Substantial/Maximal Assistance-helper does MORE THAN HALF the effort. [place] lifts or holds trunk or limbs and provides more than half the effort. 9-Dvqhcnslu-ivkqwn does ALL the effort. Patient does none of the effort to complete the activity. Or, the assistance of 2 or more helpers is required for the patient to complete the activity. If activity was not attempted, code reason: 7-Patient Refused. 9-Not Applicable-not attempted and the patient did not perform the activity before the current illness, exacerbation or injury. 10-Not Attempted due to Environmental Limitations-(lack of equipment, weather restraints, etc.). 88-Not Attempted due to Medical Conditions or Safety Concerns. Oral Hygiene (QC): 5 OT Alf Goals Workers Compensation Claims Adjuster Goals Time Frame: Jun 25, 2022 Eating (QC): 6 Oral Hygiene (QC): 6 Toileting Hygiene (QC): 4 Shower/Bathe Self (QC): 4 Upper Body Dressing (QC): 6 Lower Body Dressing (QC): 4 On/Off Footwear (QC): 4 Additional Goals: 1-Demonstrate ADL Tasks, 2-Verbalize Understanding, 3- ImproveStrength/Shanice 1=Demonstrate adherence to instructed precautions during ADL tasks. 2=Patient will verbalize/demonstrate understanding of assistive devices/modifications for ADL. 3=Patient will improve strength/tolerance for activity to enable patient to perform ADL's. OT Education/Plan Problem List/Assessment Assessment: Decreased Activ Tolerance, Decreased UE Strength Discharge Recommendations Plan/Recommendations: Continue POC Treatment Plan/Plan of Care Patient would benefit from OT for education, treatment and training to promote independence in ADL's, mobility, safety and/or upper extremity function for ADL's. Plan of Care: ADL Retraining, Caregiver Training, Functional Mobility, UE Funct Exercise/Act, UE Neuromus Re-Ed/Coord Treatment Duration: Jun 25, 2022 Frequency: 3 times per week (3-5 x/week) Estimated Hrs Per Day: .25 hour per day Agreement: Yes Rehab Potential: Fair Time/GCodes Start Time: 10:34 Stop Time: 10:47 Total Time Billed (hr/min): 13 Billed Treatment Time 1 visit ADL 1 (13 min) GERRI HUNT Jun 17, 2022 10:58
[2022-06-17 11:21] VITALS: BP 97/62
--- NOTE | 2022-06-17 14:19 | Progress Note - Hospitalist ---
ALLEN CAMPBELLOR 06/17/22 1419: Subjective HPI/CC On Admission Date Seen by Provider: Jun 17, 2022 Time Seen by Provider: 09:15 Chief complaint: Altered mental status due to sepsis from UTI and gram-negative bacteremia with cirrhosis and chronic bilirubinemia HPI: This is a 66-year-old female with a past medical history of cirrhosis from fatty liver with morbid obesity BMI 67 who recently had ablation of hepatocel lular carcinoma at last week who presented to ER with weakness and fever found to have UTI and pneumonia. Patient remains very borderline critically ill due to chronic liver dysfunction. At this current time she is having rigors while I am examining her. Blood cultures are positive for gram-negative bacteria. Meropenem was initiated initially broad-spectrum. Elevated troponin is likely type II NSTEMI per Dr. Thompson. Thrombocytopenia is a bleeding risk so unable to initiate high-dose Lovenox. Subjective/Events-last exam Patient states she feels better today than she did yesterday. She has been able to get up and go to the restroom by herself. She went on a walk around the 4th floor with PT this morning. Denies any sweats/chills, nausea/vomiting or abdominal pain. Review of Systems General: No Chills, No Night Sweats Pulmonary: No Cough Cardiovascular: No: Chest Pain Gastrointestinal: No: Nausea, Vomiting, Abdominal Pain Objective Exam Vital Signs Vital Signs Date Time Temp Pulse Resp B/P (MAP) Pulse Ox O2 Delivery O2 Flow Rate FiO2 06/17/22 11:21 37.0 59 18 97/62 (74) 96 Room Air 06/15/22 23:39 2 06/15/22 12:00 2.00 Capillary Refill : General Appearance: No Apparent Distress, Obese HEENT: PERRL/EOMI Neck: Non Tender, Supple Respiratory: Lungs Clear, Normal Breath Sounds, No Accessory Muscle Use, No Respiratory Distress Cardiovascular: Regular Rate, Rhythm, Normal Peripheral Pulses Gastrointestinal: Normal Bowel Sounds, Non Tender, Soft Neurologic/Psychiatric: Alert, Oriented x3, Normal Mood/Affect Skin: Warm/Dry, Jaundice Results/Procedures Lab Laboratory Tests 06/17/22 06:04 Patient resulted labs reviewed. 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 until this admit Hypertension NGUYEN on CPAP Hyperlipidemia Hypothyroidism Pacemaker Plan: Pt continues to improve each day IV fluids Continue rocephin Continue working with PT Ultrasound showed findings consistent w/cirrhosis and some mild ascites High risk for overt liver failure Will obtain Advanced Directive SASHA TILLMAN DO 06/18/22 0538: Subjective Subjective/Events-last exam Improved status No pain Rocephin still maintained Supervisory-Addendum Brief Verification & Attestation Participated in pt care: history, MDM, physical Personally performed: exam, history, MDM, supervision of care Care discussed with: Medical Student Procedures: n/a Results interpretation: Verified all documentation Verification and Attestation of Medical Student E/M Service A medical student performed and documented this service in my presence. I reviewed and verified all information documented by the medical student and made modifications to such information, when appropriate. I personally performed the physical exam and medical decision making. Sasha Tillman, Jun 18, 2022,05:37 TARAN CAMPBELL Jun 17, 2022 14:19 SASHA TILLMAN DO Jun 18, 2022 05:38
[2022-06-17 16:00] VITALS: BP 129/62
[2022-06-17 19:32] VITALS: BP 129/60
[2022-06-17] MEDS: MELATONIN 10 MG TABLET PO SCH (19:51)
[2022-06-17 23:12] VITALS: BP 96/53
[2022-06-18 04:36] VITALS: BP 145/79
[2022-06-18] MEDS: LEVOTHYROXINE 100 MCG (LEVOTHROID) TAB PO SCH (05:38)
[2022-06-18] MEDS: inSUlin ASPART (NovoLOG) 1 UNIT/0.01 ML (CHARGE PER UNIT) SC SCH ×2 (05:38→12:25)
[2022-06-18 05:56] LABS: ALBUMIN 2.3 GM/DL (3.2-4.5)
[2022-06-18 05:57] LABS: BASOPHILS # (AUTO) 0.1 10^3/uL (0.0-0.1); BASOPHILS % (AUTO) 1 % (0-10); EOSINOPHILS # (AUTO) 0.7 10^3/uL (0.0-0.3); EOSINOPHILS % (AUTO) 7 % (0-10); HEMATOCRIT 30 % (35-52); HEMOGLOBIN 10.3 g/dL (11.5-16.0); LYMPHOCYTES # (AUTO) 1.9 10^3/uL (1.0-4.0); LYMPHOCYTES % (AUTO) 19 % (12-44); MEAN CORPUSCULAR HEMOGLOBIN 36 pg (25-34); MEAN CORPUSCULAR HGB CONC 35 g/dL (32-36); MEAN CORPUSCULAR VOLUME 104 fL (80-99); MEAN PLATELET VOLUME 11.9 fL (9.0-12.2); MONOCYTES # (AUTO) 0.9 10^3/uL (0.0-1.0); MONOCYTES % (AUTO) 9 % (0-12); NEUTROPHILS # (AUTO) 6.1 10^3/uL (1.8-7.8); NEUTROPHILS % (AUTO) 63 % (42-75); PLATELET COUNT 61 10^3/uL (130-400); POTASSIUM 3.6 MMOL/L (3.6-5.0); WHITE BLOOD COUNT 9.8 10^3/uL (4.3-11.0)
[2022-06-18 05:58] LABS: CALCIUM 8.5 MG/DL (8.5-10.1)
[2022-06-18 05:59] LABS: TOTAL PROTEIN 4.4 GM/DL (6.4-8.2)
[2022-06-18 06:01] LABS: BILIRUBIN,TOTAL 3.5 MG/DL (0.1-1.0)
[2022-06-18 06:03] LABS: CREATININE SERUM 0.8 MG/DL (0.60-1.30)
[2022-06-18 06:07] LABS: SMEAR SCAN COMMENT YES
[2022-06-18 07:35] VITALS: BP 117/72
[2022-06-18] MEDS: VITAMIN D3 125 MCG (5,000 UNITS) CAPSULE PO SCH (08:14)
[2022-06-18] MEDS: SERTRALINE 100 MG (ZOLOFT) TAB PO SCH (08:14)
[2022-06-18] MEDS: ASPIRIN E.C. 81 MG (ECOTRIN) TAB PO SCH (08:14)
[2022-06-18] MEDS: eZETimibe 10 MG (ZETIA) TABLET PO SCH (08:14)
[2022-06-18] MEDS: meTOproloL SUCCINATE 50 MG (TOPROL XL) TAB PO SCH (08:14)
[2022-06-18] MEDS: RIFAXIMIN 550 MG TABLET (XIFAXAN) PO SCH (10:39)
[2022-06-18] MEDS: cefTRIAXone 1 GM PRE-MIX 50 ML IV SCH (10:39)
[2022-06-18 11:18] VITALS: BP 113/67
--- NOTE | 2022-06-18 12:00 | Occupational Ther Daily Note ---
OT Current Status-Daily Note Subjective Pt alert lying supine in bed. Pt agrees to therapy. Pt states she is going home today. No c/o pain at this time. Mental Status/Objective Patient Orientation: Person, Place, Time, Situation Attachments: IV ADL-Treatment Pt supine to EOB independent. Pt ambulated from EOB to bathroom with FWW, SBA due to fatigue. Pt stated she struggles with cleansing venancio area and buttocks because of edema. Pt states PLOF independent in toilet hygiene. Pt educated on AE and given verbal cues on how to use. Pt able to complete toilet hygiene with AE. Pt independent toilet transfer with grabbars and FWW. Pt ambulated with FWW to EOB, SBA due to fatigue. Pt independent in donning/doffing UB and LB clothing. Pt left lying in bed call light/phone in reach. All needs met in room. Therapy Code Descriptions/Definitions Functional [place] Measure: 0=Not Assessed/NA 4=Minimal Assistance 1=Total Assistance 5=Supervision or Setup 2=Maximal Assistance 6=Modified [place] 3=Moderate Assistance 7=Complete IndependenceSCALE: Activities may be completed with or without assistive devices. 7-Rwqskbwkld-mpppfvi completes the activity by him/herself with no assistance from a helper. 5-Set-up or Clean-up Assistance-helper sets up or cleans up; patient completes activity. [place] assists only prior to or following the activity. 4-Supervision or Touching Assistance-helper provides verbal cues and/or touching/steadying and/or contact guard assistance as patient completes activity. Assistance may be provided throughout the activity or intermittently. 3-Partial/Moderate Assistance-helper does LESS THAN HALF the effort. [place] lifts, holds or supports trunk or limbs, but provides less than half the effort. 2-Substantial/Maximal Assistance-helper does MORE THAN HALF the effort. [place] lifts or holds trunk or limbs and provides more than half the effort. 7-Syfszgiki-wtcgqq does ALL the effort. Patient does none of the effort to complete the activity. Or, the assistance of 2 or more helpers is required for the patient to complete the activity. If activity was not attempted, code reason: 7-Patient Refused. 9-Not Applicable-not attempted and the patient did not perform the activity before the current illness, exacerbation or injury. 10-Not Attempted due to Environmental Limitations-(lack of equipment, weather restraints, etc.). 88-Not Attempted due to Medical Conditions or Safety Concerns. Upper Body Dressing (QC): 6 Lower Body Dressing (QC): 6 Toilet Transfer (QC): 6 Education OT Patient Education: Use of adapted equipment Teaching Recipient: Patient Teaching Methods: Demonstration, Discussion Response to Teaching: Verbalize Understanding, Return Demonstration OT Supervisor Force Adjustment Goals Supervisor Force Adjustment Goals Time Frame: Jun 25, 2022 Eating (QC): 6 Oral Hygiene (QC): 6 Toileting Hygiene (QC): 4 Shower/Bathe Self (QC): 4 Upper Body Dressing (QC): 6 Lower Body Dressing (QC): 4 On/Off Footwear (QC): 4 Additional Goals: 1-Demonstrate ADL Tasks, 2-Verbalize Understanding, 3- ImproveStrength/Shanice 1=Demonstrate adherence to instructed precautions during ADL tasks. 2=Patient will verbalize/demonstrate understanding of assistive devices/modifications for ADL. 3=Patient will improve strength/tolerance for activity to enable patient to perform ADL's. OT Education/Plan Problem List/Assessment Assessment: Decreased Activ Tolerance, Decreased Safety Aware, Decreased UE Strength, Impaired Self-Care Skills Discharge Recommendations Plan/Recommendations: Continue POC Treatment Plan/Plan of Care Patient would benefit from OT for education, treatment and training to promote independence in ADL's, mobility, safety and/or upper extremity function for ADL's. Plan of Care: ADL Retraining, Caregiver Training, Functional Mobility, UE Funct Exercise/Act, UE Neuromus Re-Ed/Coord Treatment Duration: Jun 25, 2022 Frequency: 3 times per week (3-5 x/week) Estimated Hrs Per Day: .25 hour per day Agreement: Yes Rehab Potential: Fair Time/GCodes Start Time: 11:29 Stop Time: 11:59 Total Time Billed (hr/min): 30 Billed Treatment Time 1 visit ADL 2 (30 min) GERRI HUNT Jun 18, 2022 12:00
[2022-06-18] MEDS ORDERED: CEFD300C3 PO (12:14)
--- NOTE | 2022-06-18 12:15 | D/C HH Face to Face Order ---
D/C HH Face to Face Orders Reconcile Patient Problems Problems Reviewed?: Yes Instructions for Patient HH Patient Instructions/FollowUp: PCP [address] Nieto in 2 weeks Physician to follow Patient: [facility] Discharge Diet for Home: No Restrictions Patient Problems: UTI Sepsis Cirrhosis Patient Data-Allergies,Ht & Wt Patient Allergies: Coded Allergies: COVID-19 (SARS-CoV-2) vaccine, meri (Unverified Allergy, Severe, Anaphylaxis, 10/14/21) erythromycin base (Unverified Allergy, Severe, Hives, 10/14/21) Penicillins (Verified Allergy, Intermediate, HIVES - patient has rec'd cefuroxime in past, 06/16/22) Sulfa (Sulfonamide Antibiotics) (Verified Allergy, Intermediate, HIVES, 10/14/21) adhesive tape (Verified Allergy, Intermediate, HIVES, 10/14/21) tetanus and diphtheria toxoids (Verified Allergy, Intermediate, HIVES, 10/14/21) Influenza Virus Vaccines (Verified Adverse Reaction, Mild, NAUSEA, 10/14/21) atorvastatin (Verified Adverse Reaction, Mild, NAUSEA, 10/14/21) hydromorphone (Verified Adverse Reaction, Mild, hallucinations, 10/14/21) morphine (Verified Adverse Reaction, Mild, hallcination, 10/14/21) simvastatin (Verified Adverse Reaction, Mild, NAUSEA, 10/14/21) Height (Feet): 5 Height (Inches): 2.00 Weight (Pounds): 306 Weight (Ounces): 0.0 Home Health Need/Face to Face Date of Face to Face: Jun 18, 2022 Clinical Findings: Generalized weakness and fatigue, Muscle weakness I have seen Pt [id number]: Yes Discharged To: Home Diagnosis/Conditions: Cirrhosis Patient is Homebound due to: Muscle weakness, Shortness of breath/distress Homebound Status Due to the above stated illness, injury or surgical procedure (medical condition or diagnosis) and associated clinical findings, the patient is homebound because of his/her inability to leave home except with aid of a sup portive device and/or person AND leaving the home requires a considerable and taxing effort or is medically contraindicated. Pt req the following assistanc: [facility] Nursing Orders Home Health Services Order: Nursing Services, Sustainable Development Policy Analyst-Evaluate & Treat, Physical Therapy-Evaluate & Treat Home Health Infusion Therapy Line Start Date: Jun 13, 2022 Certify Stmt I certify that this patient is under my care and that I, a nurse practitioner or a physician; a rehab assistant working with me, had a face to face encounter that - meets the physician face to face encounter requirements with this patient as dated. CULLEN TILLMAN DO Jun 18, 2022 12:15
--- NOTE | 2022-06-18 12:16 | Discharge Summary ---
Discharge Summary Hospital Course Was the Problem List Reviewed?: Yes Problems/Dx: (1) Cirrhosis (2) Obesity (3) Sepsis (4) UTI (urinary tract infection) Status: Acute Qualifiers: Qualified Codes: N39.0 - Urinary tract infection, site not specified; R31.9 - Hematuria, unspecified (5) Non-insulin dependent type 2 diabetes mellitus Status: Chronic Hospital Course Date of Admission: Jun 13, 2022 at 01:45 Admission Diagnosis : Family Physician/Provider: Lona Vega MD Date of Discharge: 06/18/22 Discharge Diagnosis: [ ] Hospital Course: Swathi is a 66-year-old female with a PMH of cirrhosis from fatty liver with morbid obesity BMI 67 who recently had ablation of hepatocellular carcinoma at last week who presented to ER with weakness and fever found to have UTI and pneumonia. Initial blood cultures were positive for gram-negative bacteria. She was started on IV fluids and Meropenem initially broad-spectrum. Elevated troponins were also reported, likely caused by type II NSTEMI per industrial design engineer Dr. Thompson. Patient has thrombocytopenia making her a bleeding risk, so lovenox was not given during the stay. After culture sensitivity results were received, pt was switched from meropenem to rocephin. She has improved both physically and mentally since her arrival at the ER, and is now able to make it to the restroom and back without assistance. She has not had a fever in 4 days and her labwork/vitals are all stable. Patient is safe for discharge today. Labs and Pending Lab Test: Laboratory Tests 06/17/22 16:10: Glucometer 116H 06/17/22 20:05: Glucometer 141H 06/18/22 05:35: White Blood Count 9.8, Red Blood Count 2.87L, Hemoglobin 10.3L, Hematocrit 30L, Mean Corpuscular Volume 104H, Mean Corpuscular Hemoglobin 36H, Mean Corpuscular Hemoglobin Concent 35, Red Cell Distribution Width 14.6H, Platelet Count 61L, Mean Platelet Volume 11.9, Immature Granulocyte % (Auto) 1, Neutrophils (%) (Auto) 63, Lymphocytes (%) (Auto) 19, Monocytes (%) (Auto) 9, Eosinophils (%) (Auto) 7, Basophils (%) (Auto) 1, Neutrophils # (Auto) 6.1, Lymphocytes # (Auto) 1.9, Monocytes # (Auto) 0.9, Eosinophils # (Auto) 0.7H, Basophils # (Auto) 0.1, Immature Granulocyte # (Auto) 0.1, Percent Immature Platelet Fraction 5.0, Sodium Level 136, Potassium Level 3.6, Chloride Level 111H, Carbon Dioxide Level 17L, Anion Gap 8, Blood Urea Nitrogen 16, Creatinine 0.80, Estimat Glomerular Filtration Rate 80, BUN/Creatinine Ratio 20, Glucose Level 100, Calcium Level 8.5, Corrected Calcium 9.9, Total Bilirubin 3.5H, Aspartate Amino Transf (AST/SGOT) 60H, Alanine Aminotransferase (ALT/SGPT) 42, Alkaline Phosphatase 90, Total Protein 4.4L, Albumin 2.3L, Smear Scan YES 06/18/22 05:38: Glucometer 98 Microbiology 06/13/22 Blood Culture - Preliminary, Resulted No growth 06/13/22 Urine Culture - Final, Complete Escherichia coli Home Meds Active Cefdinir 300 Mg Capsule 300 Mg PO BID Reported Cyanocobalamin Injection (Cyanocobalamin) 1,000 Mcg/Ml Inj 1,000 Mcg IM MONTHLY Ezetimibe 10 Mg Tablet 10 Mg PO DAILY Xifaxan (Rifaximin) 550 Mg Tablet 550 Mg PO Q12H Ondansetron Odt (Ondansetron) 4 Mg Tab.rapdis 4 Mg PO Q8H PRN Benadryl Allergy (Diphenhydramine HCl) 25 Mg Tablet 25-50 Mg PO Q6H PRN Metoprolol Succinate 50 Mg Tab.er.24h 50 Mg PO DAILY Sertraline HCl 100 Mg Tablet 100 PO DAILY Melatonin 10 Mg Tablet 10 Mg PO HS Metformin HCl 500 Mg Tablet 500 Mg PO DAILY Vitamin D3 (Cholecalciferol (Vitamin D3)) 125 Mcg Capsule 125 Mcg PO DAILY Levothyroxine Sodium 100 Mcg Tablet 100 Mcg PO DAILY Assessment/Pt Instructions PCP 1 week Discharge Planning: <30 minutes discharge planning Discharge Physical Examination Vital Signs Vital Signs Date Time Temp Pulse Resp B/P (MAP) Pulse Ox O2 Delivery O2 Flow Rate FiO2 06/18/22 11:18 36.9 60 8 113/67 (82) 94 Room Air 06/15/22 23:39 2 06/15/22 12:00 2.00 General Appearance: No Apparent Distress, WD/WN, Chronically ill Allergies: Coded Allergies: COVID-19 (SARS-CoV-2) vaccine, meri (Unverified Allergy, Severe, Anaphylaxis, 10/14/21) erythromycin base (Unverified Allergy, Severe, Hives, 10/14/21) Penicillins (Verified Allergy, Intermediate, HIVES - patient has rec'd cefuroxime in past, 06/16/22) Sulfa (Sulfonamide Antibiotics) (Verified Allergy, Intermediate, HIVES, 10/14/21) adhesive tape (Verified Allergy, Intermediate, HIVES, 10/14/21) tetanus and diphtheria toxoids (Verified Allergy, Intermediate, HIVES, 10/14/21) Influenza Virus Vaccines (Verified Adverse Reaction, Mild, NAUSEA, 10/14/21) atorvastatin (Verified Adverse Reaction, Mild, NAUSEA, 10/14/21) hydromorphone (Verified Adverse Reaction, Mild, hallucinations, 10/14/21) morphine (Verified Adverse Reaction, Mild, hallcination, 10/14/21) simvastatin (Verified Adverse Reaction, Mild, NAUSEA, 10/14/21) Discharge Summary Date of Admission Jun 13, 2022 at 01:45 Date of Discharge Discharge Date: Jun 18, 2022 Admission Diagnosis Assessment: Sepsis due to UTI with gram-negative bacteremia placed on meropenem initially End-stage liver disease cirrhosis status post ablation of hepatocellular carcinoma tumor last week at NSTEMI likely type II Diabetes Morbid obesity Chronic bilirubinemia Thrombocytopenia Plan: ICU IV fluids Cardiology consult eICU consult Meropenem Discharge Diagnosis Change Armando to Rocephin based on Cx CULLEN TILLMAN DO Jun 18, 2022 12:16
[2022-06-18 14:38] VITALS: BP 113/67
--- NOTE | 2022-06-18 17:25 | Progress Note ---
TARAN CAMPBELL 06/18/22 1725: Progress Note Swathi is a 66-year-old female with a PMH of cirrhosis from fatty liver with morbid obesity BMI 67 who recently had ablation of hepatocellular carcinoma at last week who presented to ER with weakness and fever found to have UTI and pneumonia. Initial blood cultures were positive for gram-negative bacteria. She was started on IV fluids and Meropenem initially broad-spectrum. Elevated troponins were also reported, likely caused by type II NSTEMI per manager of internal audit Dr. Thompson. Patient has thrombocytopenia making her a bleeding risk, so lovenox was not given during the stay. After culture sensitivity results were received, pt was switched from meropenem to rocephin. She has improved both physically and mentally since her arrival at the ER, and is now able to make it to the restroom and back without assistance. She has not had a fever in 4 days and her labwork/vitals are all stable. Patient is safe for discharge today. SASHA SANTOS DO 06/19/22 0615: Supervisory-Addendum Brief Verification & Attestation Participated in pt care: history, MDM, physical Personally performed: exam, history, MDM, supervision of care Care discussed with: Medical Student Procedures: n/a Results interpretation: Verified all documentation Verification and Attestation of Medical Student E/M Service A medical student performed and documented this service in my presence. I reviewed and verified all information documented by the medical student and made modifications to such information, when appropriate. I personally performed the physical exam and medical decision making. Sasha Santos Jun 19, 2022,06:15 TARAN CAMPBELL Jun 18, 2022 17:25 SASHA SANTOS DO Jun 19, 2022 06:15
--- NOTE | 2022-06-20 13:30 | ED General ---
General Chief Complaint: General Problems/Pain Stated Complaint: SEPSIS,NSTEMI,UTI,PNEUMONIA Nursing Triage Note: PT TO ROOM BY WHEELCHAIR WITH PT . PT REPORTS DISORIENTATION AND INCONTINENCE SINCE YESTERDAY. PT REPORTS HEADACHE AND BODY ACHES TODAY. PT REPORTS PT HAS BEEN "OUT OF SORTS." PT CAME IN WEARING MISMATCHED SHOES AND PT STATES "THAT EXPLAINS IT ENOUGH." PT ALSO STATES SHE HAS FELT FEVERISH Nursing Sepsis Screen: No Definite Risk Source of Information: Other ( DOES ALL TALKING AND GIVES ALL INFORMATION ) History of Present Illness Date Seen by Provider: Jun 12, 2022 Time Seen by Provider: 23:48 Initial Comments PT ARRIVES VIA POV, WITH . NEEDS WHEELCHAIR AND ASSIST ON ARRIVAL STATES SHE HAS BEEN SICK SINCE YESTERDAY C/O HEADACHE C/O BODY ACHES C/O DISORIENTED C/O SHORTNESS OF BREATH C/O URINARY INCONTINENCE C/O SUBJECTIVE FEVEFR UNABLE TO OBTAIN ANY OTHER INFORMATION AT THIS TIME Allergies and Home Medications Allergies Coded Allergies: COVID-19 (SARS-CoV-2) vaccine, meri (Unverified Allergy, Severe, Anaphylaxis, 10/14/21) erythromycin base (Unverified Allergy, Severe, Hives, 10/14/21) Penicillins (Verified Allergy, Intermediate, HIVES - patient has rec'd cefuroxime in past, 06/16/22) Sulfa (Sulfonamide Antibiotics) (Verified Allergy, Intermediate, HIVES, 10/14/21) adhesive tape (Verified Allergy, Intermediate, HIVES, 10/14/21) tetanus and diphtheria toxoids (Verified Allergy, Intermediate, HIVES, 10/14/21) Influenza Virus Vaccines (Verified Adverse Reaction, Mild, NAUSEA, 10/14/21) atorvastatin (Verified Adverse Reaction, Mild, NAUSEA, 10/14/21) hydromorphone (Verified Adverse Reaction, Mild, hallucinations, 10/14/21) morphine (Verified Adverse Reaction, Mild, hallcination, 10/14/21) simvastatin (Verified Adverse Reaction, Mild, NAUSEA, 10/14/21) Patient Home Medication List Home Medication List Reviewed: Yes Cefdinir (Cefdinir) 300 Mg Capsule, 300 MG PO BID Prescribed by: CULLEN TILLMAN on 06/18/22 1214 Cholecalciferol (Vitamin D3) (Vitamin D3) 125 Mcg Capsule, 125 MCG PO DAILY, (Reported) Entered as Reported by: SHAD HELTON on 10/21/21913 Last Action: Converted Cyanocobalamin (Cyanocobalamin Injection) 1,000 Mcg/Ml Inj, 1,000 MCG IM MONTHLY, (Reported) Entered as Reported by: JUAN NEUMANN on 06/15/22900 Last Action: Continued Diphenhydramine HCl (Benadryl Allergy) 25 Mg Tablet, 25-50 MG PO Q6H PRN for ALLERGY SYMPTOMS, (Reported) Entered as Reported by: JUAN NEUMANN on 10/21/211448 Last Action: Continued Ezetimibe (Ezetimibe) 10 Mg Tablet, 10 MG PO DAILY, (Reported) Entered as Reported by: JUAN NEUMANN on 06/15/22900 Last Action: Continued Levothyroxine Sodium (Levothyroxine Sodium) 100 Mcg Tablet, 100 MCG PO DAILY, (Reported) Entered as Reported by: TIMOTHY HERNANDES on 12/02/15 1335 Last Action: Continued Melatonin (Melatonin) 10 Mg Tablet, 10 MG PO HS, (Reported) Entered as Reported by: JUAN NEUMANN on 10/21/211445 Last Action: Continued Metoprolol Succinate (Metoprolol Succinate) 50 Mg Tab.er.24h, 50 MG PO DAILY, (Reported) Entered as Reported by: JUAN NEUMANN on 10/21/211445 Last Action: Continued Ondansetron (Ondansetron Odt) 4 Mg Tab.rapdis, 4 MG PO Q8H PRN for NAUSEA/VOMITING-1ST LINE, (Reported) Entered as Reported by: JUAN NEUMANN on 06/15/22900 Last Action: Continued Rifaximin (Xifaxan) 550 Mg Tablet, 550 MG PO Q12H, (Reported) Entered as Reported by: JUAN NEUMANN on 06/15/22900 Last Action: Continued Sertraline HCl (Sertraline HCl) 100 Mg Tablet, 100 PO DAILY, (Reported) Entered as Reported by: JUAN NEUMANN on 10/21/211445 Last Action: Continued Discontinued Medications Ascorbate Calcium (Vitamin C) 500 Mg Tablet, 500 MG PO HS, (Reported) Discontinued Reason: No Longer Taking Entered as Reported by: PAULINA ALCOCER on 05/11/17 1128 Last Action: Discontinued Ezetimibe (Zetia) 10 Mg Tablet, 10 MG PO DAILY, (Reported) Discontinued Reason: No Longer Taking Entered as Reported by: PAULINA ALCOCER on 05/11/17 1130 Last Action: Discontinued Ferrous Sulfate (Ferrous Sulfate) 325 Mg Tablet.dr, 325 MG PO HS, (Reported) Discontinued Reason: No Longer Taking Entered as Reported by: PAULINA ALCOCER on 10/17/19 1027 Last Action: Discontinued Hydrocodone Bit/Acetaminophen (HYDROcodone/APAP 5 MG/325 MG TAB) 1 Tab Tab, 1 EA PO Q4H PRN for PAIN-SEVERE (8-10) Discontinued Reason: No Longer Taking Prescribed by: CULLEN TILLMAN on 11/04/21554 Last Action: Discontinued Metformin HCl (Metformin HCl) 500 Mg Tablet, 500 MG PO DAILY, (Reported) Entered as Reported by: SHAD HELTON on 10/21/21913 Last Action: Held Omeprazole (Omeprazole) 20 Mg Capsule.dr, 20 MG PO DAILY, (Reported) Discontinued Reason: No Longer Taking Entered as Reported by: SHAD HELTON on 10/21/21913 Last Action: Discontinued Rivaroxaban (Xarelto Tablet) 15 Mg Tablet, 15 MG PO BID@0700,1900 Discontinued Reason: No Longer Taking Prescribed by: CULLEN TILLMAN on 11/04/21554 Last Action: Discontinued Rivaroxaban (Xarelto Tablet) 20 Mg Tablet, 20 MG PO DAILY@1700 Discontinued Reason: No Longer Taking Prescribed by: CULLEN TILLMAN on 11/04/21554 Last Action: Discontinued Spironolactone (Spironolactone) 50 Mg Tablet, 50 MG PO DAILY, (Reported) Discontinued Reason: No Longer Taking Entered as Reported by: SHAD HELTON on 10/21/21913 Last Action: Discontinued Tramadol HCl (Tramadol HCl) 50 Mg Tablet, 50 MG PO TID PRN for PAIN-MODERATE (5- 7) Discontinued Reason: No Longer Taking Prescribed by: CULLEN TILLMAN on 11/04/21554 Last Action: Discontinued Review of Systems Review of Systems Constitutional: see HPI, other (ALL PER ) Respiratory: see HPI Genitourinary: see HPI Psychiatric/Neurological: See HPI Past Rvsvlqh-Ylompv-Kzkubj Hx Patient Social History Tobacco Use?: No Smoking Status: Never a Smoker Smokeless Tobacco Frequency: Never a User Use of E-Cig and/or Vaping dev: No Substance use?: No Alcohol Use?: No Pt feels they are or have been: No Immunizations Up To Date Influenza Vaccine Up-to-Date: No; Not Current First/Initial COVID19 Vaccinat: 05/2021 Second COVID19 Vaccination Hermes: 06/2021 Third COVID19 Vaccination Date: 05/2021 COVID19 Vaccine Metal Spinner: N/A Seasonal Allergies Seasonal Allergies: Yes Past Medical History Surgery/Hospitalization HX: END STAGE LIVER DISEASE PACEMAKER PLACED 12/2020 LOOP RECORDER Surgeries: Yes (right tkr x2, JUNIE HEEL SPUR, mass removed from colon, COLECTOMY, R knee sco) Abdominal, Appendectomy, Bowel Surgery, Gallbladder, Hysterectomy, Joint Replacement, Orthopedic, Pacemaker, Thyroidectomy Respiratory: Yes (uses cpap) Sleep Apnea Currently Using CPAP: Yes Currently Using BIPAP: No Cardiac: Yes Chronic Edema/Swelling, Deep Vein Thrombosis, High Cholesterol, Hypertension, Irregular Heartbeat Neurological: No 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, 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 Sexually Transmitted Disease: No HIV/AIDS: No Genitourinary: No Gastrointestinal: Yes (benign colon mass removed, enlarged spleen; END STAGE LIVER FAILURE) Liver Disease/Jaundice, Chronic Diarrhea, Cirrhosis Musculoskeletal: Yes Osteoporosis, Arthritis, Chronic Back Pain Endocrine: Yes (ORAL MEDICATIONS FOR DIABETES, MORBID OBESITY) Hypothyroidsim, Diabetes, Non-Insulin dep HEENT: Yes (GLASSES) Loss of Vision: Denies Hearing Impairment: Denies Cancer: No Psychosocial: Yes Anxiety, Depression Integumentary: No Blood Disorders: Yes (HX ANEMIA) Adverse Reaction/Blood Tranf: No (HAS HAD BLOOD WITH NO REACTION) Family Medical History No Pertinent Family Hx PAST SURGICAL HISTORY: -LEFT TOTAL KNEE REPLACEMENT 10/2021. DEVELOPED DVT IN LEFT LEG POST OP -RIGHT KNEE REPLACEMENT X 2 -RIGHT KNEE SCOPE -RIGHT KNEE SCOPE -RIGHT ROTATOR CUFF REPAIR -REMOVAL OF BENIGN COLON MASS -SMALL BOWEL RESECTION FOR BOWEL OBSTRUCTION -HYSTERECTOMY -APPENDECTOMY -CHOLECYSTECTOMY -THYROIDECTOMY -BILATERAL HEEL SPURS REMOVED -LOOP RECORDER PLACED 08/2020 FOR SYNCOPAL EPISODES - DUAL CHAMBER PACEMAKER PLACED BY DR. CAT 12/2020 FOR SYNCOPE WITH PAUSES Physical Exam Vital Signs Capillary Refill : Height, Weight, BMI Height: 5'2.00" Weight: 306lbs. 0.0oz. [id number]; 67.20 BMI Method:Stated General Appearance: WD/WN, Obese (MORBIDLY OBESE), Other (LETHARGIC, GENERALIZED WEAKNESS, MODERATELY DYSPNEIC ON ARRIVAL WITH MINIMAL EXERTION--TRANSFERRING FROM WHEELCHAIR TO ER CART WITH ASSIST. ) HEENT: PERRL/EOMI Neck: Normal Inspection Respiratory: Accessory Muscle Use, Decreased Breath Sounds (DECREASED AERATION IN ALL LUNG RAMÍREZ) Cardiovascular: Regular Rate, Rhythm Gastrointestinal: Soft Back: No CVA Tenderness Extremity: Pedal Edema (3+ BILATERALLY) Neurologic/Psychiatric: Alert (BUT LETHARGIC), No Motor/Sensory Deficits Focused Exam Sepsis Stage: Sepsis Possible Source: Genitouriary Lactate Level 06/12/22 00:20: Lactic Acid Level 2.82*H Time of Focused Exam: 01:30 Respiratory: Normal Breath Sounds, No Accessory Muscle Use, No Respiratory Distress Cardiovascular: Regular Rate, Rhythm, No Murmur Capillary Refill: Less Than 3 Seconds Lactic Acid Level Laboratory Tests Test 06/12/22 00:20 Lactic Acid Level 2.82 MMOL/L (0.50-2.00) *H Within 3hrs of presentation: Admin fluids, Admin ABX, Blood cultures prior to ABX's, Focus exam, Lactate level Progress/Results/Core Measures Suspected Sepsis Infection Criteria Present: Documented Infection Sepsis Screen: No Definite Risk SIRS Temperature: Pulse: 60 Respiratory Rate: 18 Blood Pressure 113 /67 Mean: 82 06/12/22 00:20: Lactic Acid Level 2.82*H Laboratory Tests 06/12/22 00:20: INR Comment 1.6H Results/Orders Lab Results Laboratory Tests Test 06/12/22 00:20 06/12/22 00:40 06/12/22 23:55 06/13/22 00:05 Range/Units White Blood Count 11.5 H 4.3-11.0 10^3/uL Red Blood Count 3.15 L 3.80-5.11 10^6/uL Hemoglobin 11.4 L 11.5-16.0 g/dL Hematocrit 33 L 35-52 % Mean Corpuscular Volume 105 H 80-99 fL Mean Corpuscular Hemoglobin 36 H 25-34 pg Mean Corpuscular Hemoglobin Concent 34 32-36 g/dL Red Cell Distribution Width 14.6 H 10.0-14.5 % Platelet Count 52 L 130-400 10^3/uL Mean Platelet Volume 11.6 9.0-12.2 fL Immature Granulocyte % (Auto) 1 % Neutrophils (%) (Auto) 82 H 42-75 % Lymphocytes (%) (Auto) 5 L 12-44 % Monocytes (%) (Auto) 12 0-12 % Eosinophils (%) (Auto) 0 0-10 % Basophils (%) (Auto) 0 0-10 % Neutrophils # (Auto) 9.5 H 1.8-7.8 10^3/uL Lymphocytes # (Auto) 0.6 L 1.0-4.0 10^3/uL Monocytes # (Auto) 1.4 H 0.0-1.0 10^3/uL Eosinophils # (Auto) 0.0 0.0-0.3 10^3/uL Basophils # (Auto) 0.0 0.0-0.1 10^3/uL Immature Granulocyte # (Auto) 0.1 0.0-0.1 10^3/uL Neutrophils % (Manual) 80 % Lymphocytes % (Manual) 5 % Monocytes % (Manual) 15 % Percent Immature Platelet Fraction 3.1 0.0-7.6 % Macrocytosis SLIGHT Elliptocytes SLIGHT Erythrocyte Sedimentation Rate 19 0-30 MM/HR Prothrombin Time 19.3 H 12.2-14.7 SEC INR Comment 1.6 H 0.8-1.4 Activated Partial Thromboplast Time 43 H 24-35 SEC D-Dimer 5.64 H 0.00-0.49 UG/ML Sodium Level 138 135-145 MMOL/L Potassium Level 3.9 3.6-5.0 MMOL/L Chloride Level 109 H 98-107 MMOL/L Carbon Dioxide Level 15 L 21-32 MMOL/L Anion Gap 14 5-14 MMOL/L Blood Urea Nitrogen 16 7-18 MG/DL Creatinine 1.02 0.60-1.30 MG/DL Estimat Glomerular Filtration Rate 60 BUN/Creatinine Ratio 16 Glucose Level 151 H 70-105 MG/DL Lactic Acid Level 2.82 *H 0.50-2.00 MMOL/L Calcium Level 10.4 H 8.5-10.1 MG/DL Corrected Calcium 11.0 H 8.5-10.1 MG/DL Magnesium Level 1.5 L 1.6-2.4 MG/DL Total Bilirubin 9.0 H 0.1-1.0 MG/DL Aspartate Amino Transf (AST/SGOT) 37 H 5-34 U/L Alanine Aminotransferase (ALT/SGPT) 36 0-55 U/L Alkaline Phosphatase 78 40-136 U/L Ammonia 42 H 11-32 UMOL/L Total Creatine Kinase 177 H 29-168 U/L Creatine Kinase MB 3.2 <6.6 NG/ML Myoglobin 916.6 H 10.0-92.0 NG/ML Troponin I 0.845 *H <0.028 NG/ML C-Reactive Protein High Sensitivity 3.02 H 0.00-0.50 MG/DL B-Type Natriuretic Peptide 301.4 H <100.0 PG/ML Total Protein 5.9 L 6.4-8.2 GM/DL Albumin 3.3 3.2-4.5 GM/DL Amylase Level 22 L 25-125 U/L Lipase 10 8-78 U/L Procalcitonin 0.38 H <0.10 NG/ML TSH [place] Testing 0.79 0.35-4.94 UIU/ML Acetaminophen Level < 10 L 10-30 UG/ML Serum Alcohol < 10 <10 MG/DL Urine Color ORANGE Urine Clarity CLEAR Urine pH 5.5 5-9 Urine Specific [place] 1.020 1.016-1.022 Urine Protein TRACE H NEGATIVE Urine Glucose (UA) NEGATIVE NEGATIVE Urine Ketones NEGATIVE NEGATIVE Urine Nitrite POSITIVE H NEGATIVE Urine Bilirubin 1+ H NEGATIVE Urine Urobilinogen 1.0 < = 1.0 MG/DL Urine Leukocyte Esterase 2+ H NEGATIVE Urine RBC (Auto) 3+ H NEGATIVE Urine RBC 2-5 H /HPF Urine WBC 25-50 H /HPF Urine Crystals NONE /LPF Urine Bacteria MODERATE H /HPF Urine Casts PRESENT /LPF Urine Hyaline Casts 0-2 H /LPF Urine Mucus NEGATIVE /LPF Urine Culture Indicated CULTURE PENDING Urine Opiates Screen POSITIVE H NEGATIVE Urine Oxycodone Screen NEGATIVE NEGATIVE Urine Methadone Screen NEGATIVE NEGATIVE Urine Propoxyphene Screen NEGATIVE NEGATIVE Urine Barbiturates Screen NEGATIVE NEGATIVE Ur Tricyclic Antidepressants Screen NEGATIVE NEGATIVE Urine Phencyclidine Screen NEGATIVE NEGATIVE Urine Amphetamines Screen NEGATIVE NEGATIVE Urine Methamphetamines Screen NEGATIVE NEGATIVE Urine Benzodiazepines Screen NEGATIVE NEGATIVE Urine Cocaine Screen NEGATIVE NEGATIVE Urine Cannabinoids Screen NEGATIVE NEGATIVE Influenza Type A (RT-PCR) Not Detected Not Detecte Influenza Type B (RT-PCR) Not Detected Not Detecte SARS-CoV-2 RNA (RT-PCR) Not Detected Not Detecte Blood Gas Puncture Site R RAD Blood Gas Patient Temperature 38.3 Arterial Blood pH 7.38 7.37-7.43 Arterial Blood Partial Pressure CO2 30 L 35-45 MMHG Arterial Blood Partial Pressure O2 124 H 79-93 MMHG Arterial Blood HCO3 17 *L 23-27 MMOL/L Arterial Blood Total CO2 18.0 L 21.0-31.0 MMOL/L Arterial Blood Oxygen Saturation 100 94-100 % Arterial Blood Base Excess -6.8 L -2.5-2.5 MMOL/L [place] Test YES-POS Blood Gas Ventilator Setting NO Blood Gas Inspired Oxygen ROOM AIR Test 06/13/22 00:15 06/13/22 01:45 Range/Units Glucometer 146 H 70-110 MG/DL Lab Scanned Report Referred Lab Report [id number] Micro Results Microbiology 06/13/22 Urine Culture - Final, Complete Escherichia coli 06/13/22 Blood Culture - Final, Complete Escherichia coli 06/12/22 Blood Culture - Final, Complete Escherichia coli My Orders Orders - CECI JOHNSON DO Accucheck Stat ONCE (06/12/22 23:49) Ed Iv/Invasive Line Start (06/12/22 23:49) Ekg Tracing (06/12/22 23:49) O2 (06/12/22 23:49) Monitor-Rhythm Ecg Trace Only (06/12/22 23:49) Acetaminophen (06/12/22 23:49) Alcohol (06/12/22 23:49) Ammonia (06/12/22 23:49) Amylase (06/12/22 23:49) Bnp Daisha (06/12/22 23:49) Cbc With Automated Diff (06/12/22 23:49) Comprehensive Metabolic Panel (06/12/22 23:49) Creatine Kinase (06/12/22 23:49) Creatine Kinase Mb (06/12/22 23:49) Hs C Reactive Protein (06/12/22 23:49) Fibrin Degradation Products (06/12/22 23:49) Drug Screen Stat (Urine) (06/12/22 23:49) Lactic Acid Analyzer (06/12/22 23:49) Lipase (06/12/22 23:49) Magnesium (06/12/22 23:49) Procalcitonin (Pct) (06/12/22 23:49) Protime With Inr (06/12/22 23:49) Partial Thromboplastin Time (06/12/22 23:49) Thyroid Analyzer (06/12/22 23:49) Ua Culture If Indicated (06/12/22 23:49) Blood Culture (06/12/22 23:49) Erythrocyte Sedimentation Rate (06/12/22:49) Myoglobin Serum (06/12/22 23:49) Troponin I Evangeline (06/12/22 23:49) Ed Iv/Invasive Line Start (06/12/22 23:49) Ns Iv 1000 Ml (Sodium Chloride 0.9%) (06/13/22 00:00) Covid 19 Inhouse Test (06/12/22 23:49) Urine Culture (06/12/22 23:49) Ed Iv/Invasive Line Start (06/12/22 23:49) Vital Signs Adult Sepsis Patie Q15M (06/12/22 23:49) Influenza A And B By Pcr (06/12/22 23:49) Isolation Central Supply Req (06/12/22 23:49) Arterial Blood Gas (06/13/22 00:13) Ibuprofen Tablet (Motrin Tablet) (06/13/22 00:30) Manual Differential (06/12/22 00:20) Chest 1 View, Ap/Pa Only (06/13/22 00:01) Meropenem (Merrem 500 Mg) (06/13/22 01:15) Vital Signs/I&O Capillary Refill : Blood Pressure Mean: 82 Point of Care Testing Finger Stick Blood Glucose: 150 Blood Glucose Action Taken: 137 AM Labs Progress Note : Progress Note PLACED IN ISOLATION ROOM PPE WORN COVID AND FLU TESTING DONE SEPSIS PROTOCOL INITIATED NO DETERIORATION IN PT'S CONDITION DURING ER STAY ECG Initial ECG Impression Date: Jun 13, 2022 Initial ECG Impression Time: 00:18 Initial ECG Rate: 83 Initial ECG Rhythm: Normal Sinus Diagnostic Imaging Comments CXR--PNEUMONIA, PENDING RADIOLOGIST REVIEW Reviewed: Reviewed by Me Departure Communication (Admissions) 0143--SPOKE WITH DR. TILLMAN, HOSPITALIST FOR [facility]. ACCEPTS PT FOR ADMIT. ORD ERS NOTED. 0149--SPOKE WITH DR. CAT, PRODUCTION WEIGHER. ORDERS NOTED 0217--REPORT TO E-ICU PHYSICIAN. Impression Primary Impression: Sepsis Additional Impressions: NSTEMI (non-ST elevated myocardial infarction) UTI (urinary tract infection) Qualified Codes: N39.0 - Urinary tract infection, site not specified; R31.9 - Hematuria, unspecified Pneumonia Disposition: ADMITTED INPATIENT Condition: Stable Admissions Decision to Admit Reason: Admit from ER (General) Decision to Admit/Date: Jun 13, 2022 Time/Decision to Admit Time: 01:45 Departure-Patient Inst. Referrals: BRENTON DORAN MD (PCP) Primary Care Physician Patient Instructions: CHF, Sepsis, Adult (DC) Scripts Cefdinir (Cefdinir) 300 Mg Capsule 300 MG PO BID, #10 CAP Prov: CULLEN TILLMAN DO 06/18/22 CECI JOHNSON DO Jun 20, 2022 13:30
== END 2022-06-18 14:38 | disposition home health service (06) | DRG 871 ==
LOC: EDUNIT# 23:19 → ER 23:21 → EDLOC 06-13 01:45 → ICU 06-13 01:45 → 4TH 06-16 14:29
PROVIDERS: ADMIT Internal Medicine; ATTEND Internal Medicine
PROC: 5A09357 Assistance with Respiratory Ventilation, Less than 24 Consecutive Hours, Continuous Positive Airway Pressure (ICD-10-PCS; principal; 2022-06-13)
DX: A41.51 Sepsis due to Escherichia coli [E. coli] (principal); I21.A1 Myocardial infarction type 2; G93.41 Metabolic encephalopathy; N39.0 Urinary tract infection, site not specified; Z68.44 Body mass index [BMI] 60.0-69.9, adult; K74.60 Unspecified cirrhosis of liver; Z20.822 Contact with and (suspected) exposure to COVID-19; E78.00 Pure hypercholesterolemia, unspecified; I10 Essential (primary) hypertension; M81.0 Age-related osteoporosis without current pathological fracture; M19.90 Unspecified osteoarthritis, unspecified site; G89.29 Other chronic pain; M54.9 Dorsalgia, unspecified; E03.9 Hypothyroidism, unspecified; E11.9 Type 2 diabetes mellitus without complications; F41.9 Anxiety disorder, unspecified; F32.A Depression, unspecified; Z96.652 Presence of left artificial knee joint; K72.10 Chronic hepatic failure without coma; E66.01 Morbid (severe) obesity due to excess calories; D69.6 Thrombocytopenia, unspecified; Z86.718 Personal history of other venous thrombosis and embolism; G47.33 Obstructive sleep apnea (adult) (pediatric); Z95.0 Presence of cardiac pacemaker; Z82.49 Family history of ischemic heart disease and other diseases of the circulatory system
CPT/HCPCS: 36415; 51702; 71045; 76705; 80053; 80061; 80306; 80320; 80329; 81000; 82140; 82150; 82550; 82553; 82805; 82947; 83605; 83690; 83735; 83874; 83880; 84100; 84145; 84443; 84484; 85007; 85025; 85027; 85379; 85610; 85652; 85730; 86141; 87040; 87077; 87088; 87186; 87636; 93005; 93041; 94760; 99291

== ENCOUNTER 2022-06-21 11:45 | Emergency (ER) | payer MEDICARE ==
[~2022-06-21] VITALS: Ht 158 cm; Wt 167.6 kg
[~2022-06-21 11:45] MED LIST changes: +CEFD300C3 PO; +CNC1KV IM; +EZET10TA49 PO; +ONDA4TAB11 PO; +RIFA550T PO
[2022-06-21 12:48] LABS: BASOPHILS # (AUTO) 0.1 10^3/uL (0.0-0.1); BASOPHILS % (AUTO) 1 % (0-10); EOSINOPHILS % (AUTO) 5 % (0-10); MEAN CORPUSCULAR VOLUME 105 fL (80-99)
[2022-06-21 12:50] LABS: EOSINOPHILS # (AUTO) 0.4 10^3/uL (0.0-0.3); HEMATOCRIT 30 % (35-52); HEMOGLOBIN 10.4 g/dL (11.5-16.0); LYMPHOCYTES # (AUTO) 1.7 10^3/uL (1.0-4.0); LYMPHOCYTES % (AUTO) 21 % (12-44); MEAN CORPUSCULAR HEMOGLOBIN 36 pg (25-34); MEAN CORPUSCULAR HGB CONC 34 g/dL (32-36); MEAN PLATELET VOLUME 10.7 fL (9.0-12.2); MONOCYTES # (AUTO) 0.8 10^3/uL (0.0-1.0); MONOCYTES % (AUTO) 9 % (0-12); NEUTROPHILS # (AUTO) 5.3 10^3/uL (1.8-7.8); NEUTROPHILS % (AUTO) 64 % (42-75); PLATELET COUNT 112 10^3/uL (130-400); WHITE BLOOD COUNT 8.3 10^3/uL (4.3-11.0)
[2022-06-21 13:00] LABS: ALBUMIN 2.7 GM/DL (3.2-4.5); POTASSIUM 3.5 MMOL/L (3.6-5.0)
[2022-06-21 13:01] LABS: CALCIUM 9.4 MG/DL (8.5-10.1)
[2022-06-21 13:02] LABS: TOTAL PROTEIN 5.1 GM/DL (6.4-8.2)
[2022-06-21 13:03] LABS: INR 1.5 (0.8-1.4); PROTHROMBIN TIME PATIENT 18.8 SEC (12.2-14.7)
[2022-06-21 13:04] LABS: BILIRUBIN,TOTAL 3.1 MG/DL (0.1-1.0)
[2022-06-21 13:06] LABS: CREATININE SERUM 0.82 MG/DL (0.60-1.30)
--- NOTE | 2022-06-21 13:19 | Diagnostic Imaging Report ---
CLINICAL INDICATION: Patient with shortness of air. EXAM: Portable chest x-ray upright view. COMPARISON: Chest x-ray dated 06/13/2022. FINDINGS: Lungs/pleura: Lungs are clear. There is no pneumothorax. There is no pleural effusion. Mediastinum: There is stable mild enlargement of the pulmonary vasculature seen centrally. Pulmonary vasculature: Unremarkable. Heart: There is cardiomegaly again seen. Loop recorder seen overlying the left chest. Cardiac pacemaker seen overlying the left chest. Bones/extrathoracic soft tissue: There are degenerative spurs involving the spine. IMPRESSION: 1: There is cardiomegaly with prominence of the pulmonary vasculature centrally. This has not significantly changed in interim. 2: The remainder of this exam shows no significant interval change compared to the prior study of comparison. Dictated by: Dictated on workstation # [id number]
[2022-06-21 13:59] LABS: BILIRUBIN,URINE NEGATIVE (NEGATIVE); CLARITY,URINE CLOUDY; COLOR,URINE ORANGE; GLUCOSE, URINE (UA) NEGATIVE (NEGATIVE); KETONES,URINE NEGATIVE (NEGATIVE); LEUKOCYTE ESTERASE ,URINE NEGATIVE (NEGATIVE); NITRITE,URINE NEGATIVE (NEGATIVE); PROTEIN,URINE NEGATIVE (NEGATIVE)
[2022-06-21 14:10] LABS: BACTERIA,URINE TRACE /HPF; WBC,URINE RARE /HPF
--- NOTE | 2022-06-21 14:54 | ED Respiratory ---
General Chief Complaint: Respiratory Problems Stated Complaint: SOA Nursing Triage Note: PT TO RM 6 BY WC WITH C/O SOB SINCE TUESDAY AFTER BEING RELEASED FROM INPATIENT STAY. PT WAS ADMITTED FOR UTI/SEPSIS Source: patient Exam Limitations: no limitations Allergies and Home Medications Allergies Coded Allergies: COVID-19 (SARS-CoV-2) vaccine, meri (Unverified Allergy, Severe, Anaphylaxis, 10/14/21) erythromycin base (Unverified Allergy, Severe, Hives, 10/14/21) Penicillins (Verified Allergy, Intermediate, HIVES - patient has rec'd cefuroxime in past, 06/16/22) Sulfa (Sulfonamide Antibiotics) (Verified Allergy, Intermediate, HIVES, 10/14/21) adhesive tape (Verified Allergy, Intermediate, HIVES, 10/14/21) tetanus and diphtheria toxoids (Verified Allergy, Intermediate, HIVES, 10/14/21) Influenza Virus Vaccines (Verified Adverse Reaction, Mild, NAUSEA, 10/14/21) atorvastatin (Verified Adverse Reaction, Mild, NAUSEA, 10/14/21) hydromorphone (Verified Adverse Reaction, Mild, hallucinations, 10/14/21) morphine (Verified Adverse Reaction, Mild, hallcination, 10/14/21) simvastatin (Verified Adverse Reaction, Mild, NAUSEA, 10/14/21) Patient Home Medication List Cefdinir (Cefdinir) 300 Mg Capsule, 300 MG PO BID Prescribed by: CULLEN TILLMAN on 06/18/22 1214 Cholecalciferol (Vitamin D3) (Vitamin D3) 125 Mcg Capsule, 125 MCG PO DAILY, (Reported) Entered as Reported by: SHAD HELTON on 10/21/21 0914 Cyanocobalamin (Cyanocobalamin Injection) 1,000 Mcg/Ml Inj, 1,000 MCG IM MONTHLY, (Reported) Entered as Reported by: JUAN NEUMANN on 06/15/22 0901 Diphenhydramine HCl (Benadryl Allergy) 25 Mg Tablet, 25-50 MG PO Q6H PRN for ALLERGY SYMPTOMS, (Reported) Entered as Reported by: JUAN NEUMANN on 10/21/21 1449 Ezetimibe (Ezetimibe) 10 Mg Tablet, 10 MG PO DAILY, (Reported) Entered as Reported by: JUAN NEUMANN on 06/15/22 0901 Levothyroxine Sodium (Levothyroxine Sodium) 100 Mcg Tablet, 100 MCG PO DAILY, (Reported) Entered as Reported by: TIMOTHY HERNANDES on 12/02/15 1335 Melatonin (Melatonin) 10 Mg Tablet, 10 MG PO HS, (Reported) Entered as Reported by: JUAN NEUMANN on 10/21/21 1446 Metoprolol Succinate (Metoprolol Succinate) 50 Mg Tab.er.24h, 50 MG PO DAILY, (Reported) Entered as Reported by: JUAN NEUMANN on 10/21/21 1446 Ondansetron (Ondansetron Odt) 4 Mg Tab.rapdis, 4 MG PO Q8H PRN for NAUSEA/VOMITING-1ST LINE, (Reported) Entered as Reported by: JUAN NEUMANN on 06/15/22 09 Rifaximin (Xifaxan) 550 Mg Tablet, 550 MG PO Q12H, (Reported) Entered as Reported by: JUAN NEUMANN on 06/15/22 09 Sertraline HCl (Sertraline HCl) 100 Mg Tablet, 100 PO DAILY, (Reported) Entered as Reported by: JUAN NEUMANN on 10/21/21 1446 Discontinued Medications Ascorbate Calcium (Vitamin C) 500 Mg Tablet, 500 MG PO HS, (Reported) Discontinued Reason: No Longer Taking Entered as Reported by: PAULINA ALCOCER on 05/11/17 1128 Ezetimibe (Zetia) 10 Mg Tablet, 10 MG PO DAILY, (Reported) Discontinued Reason: No Longer Taking Entered as Reported by: PAULINA ALCOCER on 05/11/17 1130 Ferrous Sulfate (Ferrous Sulfate) 325 Mg Tablet.dr, 325 MG PO HS, (Reported) Discontinued Reason: No Longer Taking Entered as Reported by: PAULINA ALCOCER on 10/17/19 1027 Hydrocodone Bit/Acetaminophen (HYDROcodone/APAP 5 MG/325 MG TAB) 1 Tab Tab, 1 EA PO Q4H PRN for PAIN-SEVERE (8-10) Discontinued Reason: No Longer Taking Prescribed by: CULLEN TILLMAN on 11/04/21 0555 Metformin HCl (Metformin HCl) 500 Mg Tablet, 500 MG PO DAILY, (Reported) Entered as Reported by: SHAD HELTON on 10/21/21 0914 Omeprazole (Omeprazole) 20 Mg Capsule.dr, 20 MG PO DAILY, (Reported) Discontinued Reason: No Longer Taking Entered as Reported by: SHAD HELTON on 10/21/21913 Rivaroxaban (Xarelto Tablet) 15 Mg Tablet, 15 MG PO BID@0700,1900 Discontinued Reason: No Longer Taking Prescribed by: CULLEN TILLMAN on 11/04/21 05 Rivaroxaban (Xarelto Tablet) 20 Mg Tablet, 20 MG PO DAILY@1700 Discontinued Reason: No Longer Taking Prescribed by: CULLEN TILLMAN on 11/04/21554 Spironolactone (Spironolactone) 50 Mg Tablet, 50 MG PO DAILY, (Reported) Discontinued Reason: No Longer Taking Entered as Reported by: SHAD HELTON on 10/21/21913 Tramadol HCl (Tramadol HCl) 50 Mg Tablet, 50 MG PO TID PRN for PAIN-MODERATE (5- 7) Discontinued Reason: No Longer Taking Prescribed by: CULLEN TILLMAN on 11/04/21554 Past Mkqymay-Mvyydi-Wayduo Hx Patient Social History Tobacco Use?: No Use of E-Cig and/or Vaping dev: No Substance use?: No Alcohol Use?: No Pt feels they are or have been: No Immunizations Up To Date Influenza Vaccine Up-to-Date: No; Not Current First/Initial COVID19 Vaccinat: 05/2021 Second COVID19 Vaccination Hermes: 06/2021 Third COVID19 Vaccination Date: 05/2021 Seasonal Allergies Seasonal Allergies: Yes Past Medical History Surgery/Hospitalization HX: END STAGE LIVER DISEASE PACEMAKER PLACED 12/2020 LOOP RECORDER Surgeries: Yes (right tkr x2, JUNIE HEEL SPUR, mass removed from colon, COLECTOMY, R knee sco) Abdominal, Appendectomy, Bowel Surgery, Gallbladder, Hysterectomy, Joint Replacement, Orthopedic, Pacemaker, Thyroidectomy Respiratory: Yes (uses cpap) Sleep Apnea Currently Using CPAP: Yes Currently Using BIPAP: No Cardiac: Yes Chronic Edema/Swelling, Deep Vein Thrombosis, High Cholesterol, Hypertension, Irregular Heartbeat Neurological: No Reproductive Disorders: No 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: Hysterectomy, Menopausal Sexually Transmitted Disease: No HIV/AIDS: No Genitourinary: No Gastrointestinal: Yes (benign colon mass removed, enlarged spleen; END STAGE LIVER FAILURE) Liver Disease/Jaundice, Chronic Diarrhea, Cirrhosis Musculoskeletal: Yes Osteoporosis, Arthritis, Chronic Back Pain Endocrine: Yes (ORAL MEDICATIONS FOR DIABETES, MORBID OBESITY) Hypothyroidsim, Diabetes, Non-Insulin dep HEENT: Yes (GLASSES) Loss of Vision: Denies Hearing Impairment: Denies Cancer: No Psychosocial: Yes Anxiety, Depression Integumentary: No Blood Disorders: Yes (HX ANEMIA) Adverse Reaction/Blood Tranf: No (HAS HAD BLOOD WITH NO REACTION) Family Medical History No Pertinent Family Hx PAST SURGICAL HISTORY: -LEFT TOTAL KNEE REPLACEMENT 10/2021. DEVELOPED DVT IN LEFT LEG POST OP -RIGHT KNEE REPLACEMENT X 2 -RIGHT KNEE SCOPE -RIGHT KNEE SCOPE -RIGHT ROTATOR CUFF REPAIR -REMOVAL OF BENIGN COLON MASS -SMALL BOWEL RESECTION FOR BOWEL OBSTRUCTION -HYSTERECTOMY -APPENDECTOMY -CHOLECYSTECTOMY -THYROIDECTOMY -BILATERAL HEEL SPURS REMOVED -LOOP RECORDER PLACED 08/2020 FOR SYNCOPAL EPISODES - DUAL CHAMBER PACEMAKER PLACED BY DR. CAT 12/2020 FOR SYNCOPE WITH PAUSES Physical Exam Vital Signs - First Documented 06/21/22 06/21/22 11:55 13:48 Temp 36.5 Pulse 67 Resp 22 B/P (MAP) 147/72 (97) O2 Delivery Room Air Capillary Refill : Height: 5'2.00" Weight: 306lbs. 0.0oz. [phone]; 67.00 BMI Method:Stated Focused Exam Lactate Level 06/21/22 12:39: Lactic Acid Level 1.83 Lactic Acid Level Laboratory Tests Test 06/21/22 12:39 Lactic Acid Level 1.83 MMOL/L (0.50-2.00) Progress/Results/Core Measures Suspected Sepsis SIRS Temperature: Pulse: 67 Respiratory Rate: 22 Laboratory Tests 06/21/22 12:39: White Blood Count 8.3 Blood Pressure 147 /72 Mean: 97 06/21/22 12:39: Lactic Acid Level 1.83 Laboratory Tests 06/21/22 12:39: Creatinine 0.82, INR Comment 1.5H, Platelet Count 112L, Total Bilirubin 3.1H Results/Orders Lab Results Laboratory Tests Test 06/21/22 12:11 06/21/22 12:39 06/21/22 13:55 Range/Units Influenza Type A (RT-PCR) Not Detected Not Detecte Influenza Type B (RT-PCR) Not Detected Not Detecte SARS-CoV-2 RNA (RT-PCR) Not Detected Not Detecte White Blood Count 8.3 4.3-11.0 10^3/uL Red Blood Count 2.89 L 3.80-5.11 10^6/uL Hemoglobin 10.4 L 11.5-16.0 g/dL Hematocrit 30 L 35-52 % Mean Corpuscular Volume 105 H 80-99 fL Mean Corpuscular Hemoglobin 36 H 25-34 pg Mean Corpuscular Hemoglobin Concent 34 32-36 g/dL Red Cell Distribution Width 15.0 H 10.0-14.5 % Platelet Count 112 L 130-400 10^3/uL Mean Platelet Volume 10.7 9.0-12.2 fL Immature Granulocyte % (Auto) 1 % Neutrophils (%) (Auto) 64 42-75 % Lymphocytes (%) (Auto) 21 12-44 % Monocytes (%) (Auto) 9 0-12 % Eosinophils (%) (Auto) 5 0-10 % Basophils (%) (Auto) 1 0-10 % Neutrophils # (Auto) 5.3 1.8-7.8 10^3/uL Lymphocytes # (Auto) 1.7 1.0-4.0 10^3/uL Monocytes # (Auto) 0.8 0.0-1.0 10^3/uL Eosinophils # (Auto) 0.4 H 0.0-0.3 10^3/uL Basophils # (Auto) 0.1 0.0-0.1 10^3/uL Immature Granulocyte # (Auto) 0.1 0.0-0.1 10^3/uL Percent Immature Platelet Fraction 2.9 0.0-7.6 % Prothrombin Time 18.8 H 12.2-14.7 SEC INR Comment 1.5 H 0.8-1.4 Activated Partial Thromboplast Time 45 H 24-35 SEC Sodium Level 139 135-145 MMOL/L Potassium Level 3.5 L 3.6-5.0 MMOL/L Chloride Level 110 H 98-107 MMOL/L Carbon Dioxide Level 23 21-32 MMOL/L Anion Gap 6 5-14 MMOL/L Blood Urea Nitrogen 11 7-18 MG/DL Creatinine 0.82 0.60-1.30 MG/DL Estimat Glomerular Filtration Rate 78 BUN/Creatinine Ratio 13 Glucose Level 156 H 70-105 MG/DL Lactic Acid Level 1.83 0.50-2.00 MMOL/L Calcium Level 9.4 8.5-10.1 MG/DL Corrected Calcium 10.4 H 8.5-10.1 MG/DL Total Bilirubin 3.1 H 0.1-1.0 MG/DL Aspartate Amino Transf (AST/SGOT) 52 H 5-34 U/L Alanine Aminotransferase (ALT/SGPT) 48 0-55 U/L Alkaline Phosphatase 88 40-136 U/L B-Type Natriuretic Peptide 694.3 H <100.0 PG/ML Total Protein 5.1 L 6.4-8.2 GM/DL Albumin 2.7 L 3.2-4.5 GM/DL Urine Color ORANGE Urine Clarity CLOUDY Urine pH 6.0 5-9 Urine Specific Jeffrey 1.020 1.016-1.022 Urine Protein NEGATIVE NEGATIVE Urine Glucose (UA) NEGATIVE NEGATIVE Urine Ketones NEGATIVE NEGATIVE Urine Nitrite NEGATIVE NEGATIVE Urine Bilirubin NEGATIVE NEGATIVE Urine Urobilinogen 0.2 < = 1.0 MG/DL Urine Leukocyte Esterase NEGATIVE NEGATIVE Urine RBC (Auto) 2+ H NEGATIVE Urine RBC 10-25 H /HPF Urine WBC RARE /HPF Urine Squamous Epithelial Cells 5-10 /HPF Urine Crystals NONE /LPF Urine Bacteria TRACE /HPF Urine Casts NONE /LPF Urine Mucus NEGATIVE /LPF Urine Culture Indicated CULTURE PENDING My Orders Orders - KEDAR FORD FELL CUTTER Covid 19 Inhouse Test (06/21/22 12:14) Influenza A And B By Pcr (06/21/22 12:14) Cbc With Automated Diff (06/21/22 12:14) Comprehensive Metabolic Panel (06/21/22 12:14) Blood Culture (06/21/22 12:14) Sputum Culture (06/21/22 12:14) Urinalysis (06/21/22 12:14) Urine Culture (06/21/22 12:14) Protime With Inr (06/21/22 12:14) Partial Thromboplastin Time (06/21/22 12:14) Chest 1 View, Ap/Pa Only (06/21/22 12:14) Ed Iv/Invasive Line Start (06/21/22 12:14) Vital Signs Adult Sepsis Patie Q15M (06/21/22 12:14) O2 (06/21/22 12:14) Remove Rings In Anticipation O (06/21/22 12:14) Lactic Acid Analyzer (06/21/22 12:14) Bnp Daisha (06/21/22 13:18) Vital Signs/I&O 06/21/22 06/21/22 11:55 13:48 Temp 36.5 Pulse 67 Resp 22 B/P (MAP) 147/72 (97) O2 Delivery Room Air Capillary Refill : Blood Pressure Mean: 97 Departure Impression Primary Impression: End stage liver disease Additional Impression: Generalized edema Disposition: 01 HOME, SELF-CARE Condition: Improved Departure-Patient Inst. Decision time for Depature: 14:43 Referrals: BRENTON DORAN MD (PCP/Family) Primary Care Physician Patient Instructions: Cirrhosis (DC), Swelling Add. Discharge Instructions: Plan: 1. Follow up with Dr. Doran as previously directed. 2. We will restart you on Hydrochlorothiazide 25mg once a day. 3. Limit sodium intake. 4. Return to ER if you develop any worsening shortness of breath or swelling despite taking Hydrochlorothiazide. 5. Return for any new, concerning, or worsening symptoms. All discharge instructions reviewed with patient and/or family. Voiced understanding. Scripts Hydrochlorothiazide (Hydrochlorothiazide) 25 Mg Tablet 25 MG PO DAILY for 30 Days, #30 TAB 0 Refills Prov: KEDAR FORD FELL CUTTER 06/21/22 KEDAR FORD FELL CUTTER Jun 21, 2022 14:54
[2022-06-21] MEDS ORDERED: HYDR25TA4 PO (14:56)
[2022-06-21 15:13] VITALS: BP 137/57
== END 2022-06-21 15:14 | disposition home or self-care (01) ==
LOC: EDUNIT# 11:45 → ER 11:46
DX: K72.10 Chronic hepatic failure without coma (principal); R60.1 Generalized edema; G47.30 Sleep apnea, unspecified; E66.01 Morbid (severe) obesity due to excess calories; Z68.44 Body mass index [BMI] 60.0-69.9, adult; Z99.89 Dependence on other enabling machines and devices; Z88.7 Allergy status to serum and vaccine; Z20.822 Contact with and (suspected) exposure to COVID-19
CPT/HCPCS: 36415; 71045; 80053; 81000; 83605; 83880; 85025; 85610; 85730; 87040; 87088; 87636

== ENCOUNTER 2022-07-19 20:34 | Inpatient (IN) | payer MEDICARE ==
[~2022-07-19] VITALS: Ht 157.5 cm; Wt 151.0 kg
[2022-07-19] MEDS ORDERED: NS IV 1000 ML 1,000 ML IV STA (20:53)
--- NOTE | 2022-07-19 21:00 | ED General ---
General Chief Complaint: General Problems/Pain Stated Complaint: UTI SYMPTOMS, DISORIENTED, CONSTIPATED Source of Information: Patient Exam Limitations: No Limitations History of Present Illness Date Seen by Provider: Jul 19, 2022 Time Seen by Provider: 20:34 Initial Comments Patient here by POV in the back of an SUV laying down. Apparently it took several people to get her into the car due to weakness. She does have history of sepsis with similar presentation previously with last septic event from E. coli in early June that was positive in both blood cultures and urine. This was resistant to fluoroquinolones. Today she has become progressively weak. She reports a fall today without hitting her head. She states this was in the bathroom but she was able to get herself up. Does not have any specific area of pain from that but states that she hurts all over. Did not lose consciousness. States that she is having problems with urination and bowel movement. She is somewhat confused. states that this has been progressively worsening throughout the day but may be over a few days. States that she had a procedure couple weeks ago and will typically get a urinary tract infection after procedures. Patient is morbidly obese. She is answering questions and following commands but is occasionally a bit confused. She did remember me from previous evaluation though. Timing/Duration: 2-3 Days, Getting Worse Severity: Moderate Associated Systoms: No Chest Pain, No Cough; Fever/Chills; No Nausea/Vomiting, No Shortness of Air; Weakness Allergies and Home Medications Allergies Coded Allergies: COVID-19 (SARS-CoV-2) vaccine, meri (Unverified Allergy, Severe, Anaphylaxis, 10/14/21) erythromycin base (Unverified Allergy, Severe, Hives, 10/14/21) Penicillins (Verified Allergy, Intermediate, HIVES - patient has rec'd cefuroxime in past, 06/16/22) Sulfa (Sulfonamide Antibiotics) (Verified Allergy, Intermediate, HIVES, 10/14/21) adhesive tape (Verified Allergy, Intermediate, HIVES, 10/14/21) tetanus and diphtheria toxoids (Verified Allergy, Intermediate, HIVES, 10/14/21) Influenza Virus Vaccines (Verified Adverse Reaction, Mild, NAUSEA, 10/14/21) atorvastatin (Verified Adverse Reaction, Mild, NAUSEA, 10/14/21) hydromorphone (Verified Adverse Reaction, Mild, hallucinations, 10/14/21) morphine (Verified Adverse Reaction, Mild, hallcination, 10/14/21) simvastatin (Verified Adverse Reaction, Mild, NAUSEA, 10/14/21) Patient Home Medication List Home Medication List Reviewed: Yes Cefdinir (Cefdinir) 300 Mg Capsule, 300 MG PO BID Prescribed by: CULLEN TILLMAN on 06/18/22 1214 Cholecalciferol (Vitamin D3) (Vitamin D3) 125 Mcg Capsule, 125 MCG PO DAILY, (Reported) Entered as Reported by: SHAD HELTON on 10/21/21 0914 Cyanocobalamin (Cyanocobalamin Injection) 1,000 Mcg/Ml Inj, 1,000 MCG IM MONTHLY, (Reported) Entered as Reported by: JUAN NEUMANN on 06/15/22 09 Diphenhydramine HCl (Benadryl Allergy) 25 Mg Tablet, 25-50 MG PO Q6H PRN for ALLERGY SYMPTOMS, (Reported) Entered as Reported by: JUAN NEUMANN on 10/21/21 1449 Ezetimibe (Ezetimibe) 10 Mg Tablet, 10 MG PO DAILY, (Reported) Entered as Reported by: JUAN NEUMANN on 06/15/22 09 Hydrochlorothiazide (Hydrochlorothiazide) 25 Mg Tablet, 25 MG PO DAILY Prescribed by: KEDAR FORD on 06/21/22 1456 Levothyroxine Sodium (Levothyroxine Sodium) 100 Mcg Tablet, 100 MCG PO DAILY, (Reported) Entered as Reported by: TIMOTHY HERNANDES on 12/02/15 1335 Melatonin (Melatonin) 10 Mg Tablet, 10 MG PO HS, (Reported) Entered as Reported by: JUAN NEUMANN on 10/21/21 1446 Metoprolol Succinate (Metoprolol Succinate) 50 Mg Tab.er.24h, 50 MG PO DAILY, (Reported) Entered as Reported by: JUAN NEUMANN on 10/21/21 1446 Ondansetron (Ondansetron Odt) 4 Mg Tab.rapdis, 4 MG PO Q8H PRN for NAUSEA/VOMI TING-1ST LINE, (Reported) Entered as Reported by: JUAN NEUMANN on 06/15/22 0901 Rifaximin (Xifaxan) 550 Mg Tablet, 550 MG PO Q12H, (Reported) Entered as Reported by: JUAN NEUMANN on 06/15/22 0901 Sertraline HCl (Sertraline HCl) 100 Mg Tablet, 100 PO DAILY, (Reported) Entered as Reported by: JUAN NEUMANN on 10/21/21 1446 Review of Systems Review of Systems Constitutional: see HPI, chills, fever EENTM: No nose congestion, No throat pain Respiratory: No cough, No short of breath Cardiovascular: No chest pain; edema Gastrointestinal: constipation; No diarrhea; nausea; No vomiting Genitourinary: decreased output, dysuria; No frequency Musculoskeletal: No back pain; muscle pain; No neck pain Skin: No change in color, No lesions Psychiatric/Neurological: Denies Headache; Weakness All Other Systems Reviewed Negative Unless Noted: Yes Past Yfeusdn-Hrkrhm-Yphdat Hx Patient Social History Tobacco Use?: No Use of E-Cig and/or Vaping dev: No Substance use?: No Immunizations Up To Date First/Initial COVID19 Vaccinat: 05/2021 Second COVID19 Vaccination Hermes: 06/2021 Third COVID19 Vaccination Date: 05/2021 Seasonal Allergies Seasonal Allergies: Yes Past Medical History Surgery/Hospitalization HX: END STAGE LIVER DISEASE PACEMAKER PLACED 12/2020 LOOP RECORDER Surgeries: Yes (right tkr x2, JUNIE HEEL SPUR, mass removed from colon, COLECTOMY, R knee sco) Abdominal, Appendectomy, Bowel Surgery, Gallbladder, Hysterectomy, Joint Replacement, Orthopedic, Pacemaker, Thyroidectomy Respiratory: Yes (uses cpap) Sleep Apnea Currently Using CPAP: Yes Currently Using BIPAP: No Cardiac: Yes Chronic Edema/Swelling, Deep Vein Thrombosis, High Cholesterol, Hypertension, Irregular Heartbeat Neurological: No Reproductive Disorders: No 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, Menopausal Sexually Transmitted Disease: No HIV/AIDS: No Genitourinary: No Gastrointestinal: Yes (benign colon mass removed, enlarged spleen; END STAGE LIVER FAILURE) Liver Disease/Jaundice, Chronic Diarrhea, Cirrhosis Musculoskeletal: Yes Osteoporosis, Arthritis, Chronic Back Pain Endocrine: Yes (ORAL MEDICATIONS FOR DIABETES, MORBID OBESITY) Hypothyroidsim, Diabetes, Non-Insulin dep HEENT: Yes (GLASSES) Loss of Vision: Denies Hearing Impairment: Denies Cancer: No Psychosocial: Yes Anxiety, Depression Integumentary: No Blood Disorders: Yes (HX ANEMIA) Adverse Reaction/Blood Tranf: No (HAS HAD BLOOD WITH NO REACTION) Family Medical History Reviewed Nursing Family Hx No Pertinent Family Hx PAST SURGICAL HISTORY: -LEFT TOTAL KNEE REPLACEMENT 10/2021. DEVELOPED DVT IN LEFT LEG POST OP -RIGHT KNEE REPLACEMENT X 2 -RIGHT KNEE SCOPE -RIGHT KNEE SCOPE -RIGHT ROTATOR CUFF REPAIR -REMOVAL OF BENIGN COLON MASS -SMALL BOWEL RESECTION FOR BOWEL OBSTRUCTION -HYSTERECTOMY -APPENDECTOMY -CHOLECYSTECTOMY -THYROIDECTOMY -BILATERAL HEEL SPURS REMOVED -LOOP RECORDER PLACED 08/2020 FOR SYNCOPAL EPISODES - DUAL CHAMBER PACEMAKER PLACED BY DR. CAT 12/2020 FOR SYNCOPE WITH PAUSES Physical Exam-Suspected Sepsis Physical Exam Vital Signs Vital Signs - First Documented 07/19/22 20:48 Temp 37.3 Pulse 83 Resp 20 B/P (MAP) 111/60 (77) Capillary Refill : Height, Weight, BMI Height: 5'2.00" Weight: 306lbs. 0.0oz. 138.796495ma; 67.00 BMI Method:Stated General Appearance: WD/WN, Mild Distress, Obese HEENT: PERRL/EOMI, Other (Dry mucous membranes) Neck: Non Tender, Supple Respiratory: Lungs Clear, Normal Breath Sounds Cardiovascular: No Murmur, Tachycardia Gastrointestinal: Non Tender, Soft Back: Normal Inspection, No CVA Tenderness, No Vertebral Tenderness Extremity: Normal Range of Motion, Non Tender, No Calf Tenderness, Pedal Edema (1-2+ to mid tibia bilateral) Neurologic/Psychiatric: Alert, Oriented x3 Skin: normal color, warm/dry Focused Exam Lactate Level 07/19/22 21:10: Lactic Acid Level 7.98*H Lactic Acid Level Laboratory Tests Test 07/19/22 21:10 Lactic Acid Level 7.98 MMOL/L (0.50-2.00) *H Progress/Results/Core Measures Suspected Sepsis SIRS Temperature: Pulse: Respiratory Rate: Laboratory Tests 07/19/22 21:10: White Blood Count 16.2H Blood Pressure / Mean: 07/19/22 21:10: Lactic Acid Level 7.98*H Laboratory Tests 07/19/22 21:10: Creatinine 1.20, INR Comment 1.6H, Platelet Count 84L, Total Bilirubin 8.0H Results/Orders Lab Results Laboratory Tests Test 07/19/22 21:10 07/19/22 21:20 Range/Units White Blood Count 16.2 H 4.3-11.0 10^3/uL Red Blood Count 3.22 L 3.80-5.11 10^6/uL Hemoglobin 11.4 L 11.5-16.0 g/dL Hematocrit 34 L 35-52 % Mean Corpuscular Volume 106 H 80-99 fL Mean Corpuscular Hemoglobin 35 H 25-34 pg Mean Corpuscular Hemoglobin Concent 33 32-36 g/dL Red Cell Distribution Width 13.3 10.0-14.5 % Platelet Count 84 L 130-400 10^3/uL Mean Platelet Volume 11.4 9.0-12.2 fL Immature Granulocyte % (Auto) 0 % Neutrophils (%) (Auto) 87 H 42-75 % Lymphocytes (%) (Auto) 5 L 12-44 % Monocytes (%) (Auto) 7 0-12 % Eosinophils (%) (Auto) 0 0-10 % Basophils (%) (Auto) 0 0-10 % Neutrophils # (Auto) 14.1 H 1.8-7.8 10^3/uL Lymphocytes # (Auto) 0.8 L 1.0-4.0 10^3/uL Monocytes # (Auto) 1.2 H 0.0-1.0 10^3/uL Eosinophils # (Auto) 0.0 0.0-0.3 10^3/uL Basophils # (Auto) 0.0 0.0-0.1 10^3/uL Immature Granulocyte # (Auto) 0.1 0.0-0.1 10^3/uL Neutrophils % (Manual) 92 % Lymphocytes % (Manual) 6 % Monocytes % (Manual) 2 % Percent Immature Platelet Fraction 3.0 0.0-7.6 % Polychromasia MODERATE Macrocytosis MARKED Helmet Cells MODERATE Crenated Cell MODERATE Elliptocytes MARKED Prothrombin Time 19.8 H 12.2-14.7 SEC INR Comment 1.6 H 0.8-1.4 Activated Partial Thromboplast Time 41 H 24-35 SEC Sodium Level 139 135-145 MMOL/L Potassium Level 2.9 L 3.6-5.0 MMOL/L Chloride Level 102 98-107 MMOL/L Carbon Dioxide Level 21 21-32 MMOL/L Anion Gap 16 H 5-14 MMOL/L Blood Urea Nitrogen 23 H 7-18 MG/DL Creatinine 1.20 0.60-1.30 MG/DL Estimat Glomerular Filtration Rate 49 BUN/Creatinine Ratio 19 Glucose Level 138 H 70-105 MG/DL Lactic Acid Level 7.98 *H 0.50-2.00 MMOL/L Calcium Level 9.9 8.5-10.1 MG/DL Corrected Calcium 10.7 H 8.5-10.1 MG/DL Total Bilirubin 8.0 H 0.1-1.0 MG/DL Aspartate Amino Transf (AST/SGOT) 597 H 5-34 U/L Alanine Aminotransferase (ALT/SGPT) 106 H 0-55 U/L Alkaline Phosphatase 88 40-136 U/L Ammonia 85 H 11-32 UMOL/L Total Protein 5.7 L 6.4-8.2 GM/DL Albumin 3.0 L 3.2-4.5 GM/DL Urine Color LIN H Urine Clarity SL CLOUDY Urine pH 6.5 5-9 Urine Specific [place] >=1.030 1.016-1.022 Urine Protein 3+ H NEGATIVE Urine Glucose (UA) TRACE H NEGATIVE Urine Ketones NEGATIVE NEGATIVE Urine Nitrite POSITIVE H NEGATIVE Urine Bilirubin 2+ H NEGATIVE Urine Urobilinogen 1.0 < = 1.0 MG/DL Urine Leukocyte Esterase TRACE H NEGATIVE Urine RBC (Auto) 3+ H NEGATIVE Urine RBC 10-25 H /HPF Urine WBC 10-25 H /HPF Urine Squamous Epithelial Cells 5-10 /HPF Urine Renal Epithelial Cells NONE /HPF Urine Crystals NONE /LPF Urine Bacteria LARGE H /HPF Urine Casts PRESENT /LPF Urine Hyaline Casts 25-50 H /LPF Urine Mucus NEGATIVE /LPF Urine Culture Indicated CULTURE PENDING My Orders Orders - HALEIGH BURRIS MD Cbc With Automated Diff (07/19/22 20:53) Comprehensive Metabolic Panel (07/19/22 20:53) Blood Culture (07/19/22 20:53) Sputum Culture (07/19/22 20:53) Urinalysis (07/19/22 20:53) Urine Culture (07/19/22 20:53) Protime With Inr (07/19/22 20:53) Partial Thromboplastin Time (07/19/22 20:53) Chest 1 View, Ap/Pa Only (07/19/22 20:53) Ed Iv/Invasive Line Start (07/19/22 20:53) Ekg Tracing (07/19/22 20:53) Vital Signs Adult Sepsis Patie Q15M (07/19/22 20:53) O2 (07/19/22 20:53) Remove Rings In Anticipation O (07/19/22 20:53) Lactic Acid Analyzer (07/19/22 20:53) Ns Iv 1000 Ml (Sodium Chloride 0.9%) (07/19/22 20:53) Ammonia (07/19/22 21:00) Manual Differential (07/19/22 21:10) Ed Iv/Invasive Line Start (07/19/22 21:58) Ns Iv 1000 Ml (Sodium Chloride 0.9%) (07/19/22 22:00) Ceftriaxone 1 Gm Pre-Mix (Rocephin 1 Gm (07/19/22 21:58) Lactulose Oral Solution (Enulose Oral So (07/19/22 22:15) Vital Signs/I&O 07/19/22 20:48 Temp 37.3 Pulse 83 Resp 20 B/P (MAP) 111/60 (77) Capillary Refill : Progress Note : Progress Note Seen and evaluated. Sepsis protocol initiated including blood cultures and lactic acid. We will get UA via straight cath. Normal saline 1 L bolus. EKG ordered. Monitor patient. 2205: Patient has grossly elevated lactic acid. Repeat normal saline bolus of 1 L. Patient will require high-volume fluid resuscitation but we will use ideal body weight of 49 kg based on height. The 2 L of fluid will exceed the fluid resuscitation requirement. I hesitate to do higher volume due to patient's history of fluid retention and chest x-ray showing pulmonary vascular congestion. Rocephin 1 g IV has been ordered. Patient also has elevated ammonia level. Lactulose 10 g p.o. ordered now. Patient to be admitted to ICU. I did discuss the case with Dr. Doran who agrees with admission and plan. 2245: I have spoken with the and patient informed them of all of the current findings and plan for which they are in agreement. I have also called the eICU team and gave report to the ICU doctor on-call. Admit, inpatient status, critical condition. I attest to focused exam at this time. Blood pressure 141/60 with heart rate of 80 and O2 sat 94% on room air. Diagnostic Imaging Diagonstic Imaging: Xray Plain Films/CT/US/NM/MRI: chest Comments [facility]. [place], [place] NAME: MECHE LOPEZ [facility] REC#: [id number] PT STATUS: REG ER : 1955 PHYSICIAN: HALEIGH BURRIS MD ADMIT DATE: 07/19/22/ER Signed Date of Exam:07/19/22 CHEST 1 VIEW, AP/PA ONLY EXAMINATION: Chest, one view. HISTORY: Weakness. COMPARISON: 06/21/2022. FINDINGS: Lung volumes are low. Stable cardiomegaly with left pectoral pacemaker. There is prominence of the central pulmonary vasculature. No large pleural effusion or pneumothorax. IMPRESSION: 1. Cardiomegaly with central pulmonary vascular congestion. This appearance is similar to the prior exam. Dictated by: Dictated on workstation # [id number] Dict: 07/19/222137 Trans: 07/19/222142 [id number] Interpreted by: MAGUE QIU DO Electronically signed by: MAGUE QIU DO 07/19/222142 Critical Care Note Critical Care Start Time: 20:34 Stop Time: 22:45 Total Time (minutes) 30 Progress See progress note for details. Critical care time exclusive of separately billable procedures to care for critically ill patient including evaluation, management, reevaluation and admission proceedings and discussions. Departure Communication (Admissions) Time/Spoke to Admitting Phy: 22:01 Time/Spoke to Consulting Phy: 22:45 Impression Primary Impression: Severe sepsis Additional Impressions: Urinary tract infection Qualified Codes: N30.00 - Acute cystitis without hematuria Hepatic encephalopathy Disposition: ADMITTED INPATIENT Condition: Critical Admissions Decision to Admit Reason: Admit from ER (General) Decision to Admit/Date: Jul 19, 2022 Time/Decision to Admit Time: 22:01 Departure-Patient Inst. Referrals: BRENTON DORAN MD (PCP/Family) Primary Care Physician HALEIGH BURRIS MD Jul 19, 2022 21:00
[2022-07-19 21:20] LABS: LYMPHOCYTES % (AUTO) 5 % (12-44); MEAN CORPUSCULAR VOLUME 106 fL (80-99)
[2022-07-19 21:22] LABS: BASOPHILS % (AUTO) 0 % (0-10); EOSINOPHILS % (AUTO) 0 % (0-10); HEMATOCRIT 34 % (35-52); HEMOGLOBIN 11.4 g/dL (11.5-16.0); LYMPHOCYTES # (AUTO) 0.8 10^3/uL (1.0-4.0); MEAN CORPUSCULAR HEMOGLOBIN 35 pg (25-34); MEAN CORPUSCULAR HGB CONC 33 g/dL (32-36); MEAN PLATELET VOLUME 11.4 fL (9.0-12.2); MONOCYTES # (AUTO) 1.2 10^3/uL (0.0-1.0); MONOCYTES % (AUTO) 7 % (0-12); NEUTROPHILS # (AUTO) 14.1 10^3/uL (1.8-7.8); NEUTROPHILS % (AUTO) 87 % (42-75); PLATELET COUNT 84 10^3/uL (130-400); WHITE BLOOD COUNT 16.2 10^3/uL (4.3-11.0)
[2022-07-19 21:36] LABS: POTASSIUM 2.9 MMOL/L (3.6-5.0)
[2022-07-19 21:37] LABS: CALCIUM 9.9 MG/DL (8.5-10.1)
[2022-07-19 21:38] LABS: TOTAL PROTEIN 5.7 GM/DL (6.4-8.2)
--- NOTE | 2022-07-19 21:40 | Diagnostic Imaging Report ---
EXAMINATION: Chest, one view. HISTORY: Weakness. COMPARISON: 06/21/2022. FINDINGS: Lung volumes are low. Stable cardiomegaly with left pectoral pacemaker. There is prominence of the central pulmonary vasculature. No large pleural effusion or pneumothorax. IMPRESSION: 1. Cardiomegaly with central pulmonary vascular congestion. This appearance is similar to the prior exam. Dictated by: Dictated on workstation # [id number]
[2022-07-19 21:42] LABS: CREATININE SERUM 1.2 MG/DL (0.60-1.30)
[2022-07-19 21:43] LABS: CLARITY,URINE SL CLOUDY; COLOR,URINE AMBER; GLUCOSE, URINE (UA) TRACE (NEGATIVE); KETONES,URINE NEGATIVE (NEGATIVE); LEUKOCYTE ESTERASE ,URINE TRACE (NEGATIVE); NITRITE,URINE POSITIVE (NEGATIVE); PH,URINE 6.5 (5-9); PROTEIN,URINE 3+ (NEGATIVE)
[2022-07-19 21:48] LABS: CRENATED RBC MODERATE; ELLIPT/OVALOCYTES MARKED; HELMET/BITE CELLS MODERATE; INR 1.6 (0.8-1.4); LYMPHOCYTES % (MANUAL) 6 %; MONOCYTES % (MANUAL) 2 %; NEUTROPHILS % (MANUAL) 92 %; POLYCHROMASIA MODERATE; PROTHROMBIN TIME PATIENT 19.8 SEC (12.2-14.7)
[2022-07-19 21:51] LABS: BILIRUBIN,URINE 2+ (NEGATIVE)
[2022-07-19 21:54] LABS: BACTERIA,URINE LARGE /HPF; HYALINE CASTS, URINE 25-50 /LPF
[2022-07-19] MEDS ORDERED: cefTRIAXone 1 GM PRE-MIX 50 ML IV STA (21:58)
[2022-07-19] MEDS ORDERED: NS IV 1000 ML 1,000 ML IV SCH (22:00)
[2022-07-19] MEDS ORDERED: LACTULOSE SYRUP 10GM/15ML (ENULOSE) 30ML UDC PO ONE (22:15)
[2022-07-19] MEDS ORDERED: LACTATED RINGERS 1,000 ML IV ONE (23:35)
[2022-07-19 23:40] VITALS: BP 135/65
[2022-07-19] MEDS ORDERED: ONDANSETRON 4 MG/2 ML (SDV) Z0FRAN IV PRN (23:45)
[2022-07-19 23:52] VITALS: BP 135/65
[2022-07-20] MEDS ORDERED: EPINEPHrine 1 MG INJECTION 4 MG in NS (IVPB) 248 ML IV SCH ×2
[2022-07-20] MEDS: LACTATED RINGERS 1,000 ML IV SCH ×3 (00:01→17:37)
[2022-07-20] MEDS: NOREPINEPHRINE 8 MG/250 ML 250 ML IV SCH ×3 (00:06→18:00)
[2022-07-20 00:07] VITALS: BP 135/65
[2022-07-20] MEDS: VASOPRESSIN INJECTION 20 UNIT in NS (IVPB) 100 ML IV SCH ×2 (00:07→11:10)
[2022-07-20] MEDS: POTASSIUM CL 10MEQ/50ML IVPB 50 ML IV SCH ×8 (00:51→08:34)
[2022-07-20] MEDS ORDERED: NS IV 500 ML 500 ML IV PRN (02:45)
[2022-07-20 04:03] LABS: EOSINOPHILS % (AUTO) 0 % (0-10); MEAN CORPUSCULAR VOLUME 104 fL (80-99)
[2022-07-20 04:05] LABS: BASOPHILS # (AUTO) 0.1 10^3/uL (0.0-0.1); BASOPHILS % (AUTO) 0 % (0-10); HEMATOCRIT 31 % (35-52); HEMOGLOBIN 10.7 g/dL (11.5-16.0); LYMPHOCYTES # (AUTO) 1.1 10^3/uL (1.0-4.0); LYMPHOCYTES % (AUTO) 7 % (12-44); MEAN CORPUSCULAR HEMOGLOBIN 36 pg (25-34); MEAN CORPUSCULAR HGB CONC 34 g/dL (32-36); MONOCYTES # (AUTO) 1.3 10^3/uL (0.0-1.0); MONOCYTES % (AUTO) 8 % (0-12); NEUTROPHILS # (AUTO) 14.3 10^3/uL (1.8-7.8); NEUTROPHILS % (AUTO) 85 % (42-75); PLATELET COUNT 69 10^3/uL (130-400); WHITE BLOOD COUNT 16.8 10^3/uL (4.3-11.0)
[2022-07-20 04:18] LABS: ALBUMIN 2.5 GM/DL (3.2-4.5); BILIRUBIN,TOTAL 7.2 MG/DL (0.1-1.0); CALCIUM 9.3 MG/DL (8.5-10.1); CREATININE SERUM 1.07 MG/DL (0.60-1.30); MAGNESIUM 1.7 MG/DL (1.6-2.4); PHOSPHORUS 2.1 MG/DL (2.3-4.7); POTASSIUM 2.9 MMOL/L (3.6-5.0); TOTAL PROTEIN 4.7 GM/DL (6.4-8.2)
[2022-07-20] MEDS ORDERED: POTASSIUM CL 10MEQ/50ML IVPB 50 ML IV SCH ×2 (04:45→06:00)
[2022-07-20] MEDS: MAGNESIUM 1 GM/100 ML IVPB 100 ML IV SCH ×2 (05:23→06:24)
[2022-07-20] MEDS ORDERED: KCL 20 MEQ TAB (K-DUR) PO SCH (06:00)
[2022-07-20] MEDS ORDERED: MAGNESIUM 1 GM/100 ML IVPB 100 ML IV SCH (06:00)
[2022-07-20] MEDS ORDERED: SERT-412 PO (11:13)
[2022-07-20] MEDS ORDERED: POTA10CA43 PO (11:13)
[2022-07-20] MEDS ORDERED: CEPH250C PO (11:13)
[2022-07-20] MEDS ORDERED: HYDR25TA4 PO (11:13)
[2022-07-20] MEDS ORDERED: ACETAMINOPHEN 500 MG TAB (TYLENOL) PO PRN (11:15)
[2022-07-20] MEDS ORDERED: LACTULOSE SYRUP 10GM/15ML (ENULOSE) 30ML UDC PO NR (11:30)
[2022-07-20] MEDS ORDERED: ALBUMIN 25% 25 GM/100 ML 100 ML IV NR (11:30)
--- NOTE | 2022-07-20 11:30 | Tele-ICU Consult ---
History of Present Illness History of Present Illness Date Seen by Provider: Jul 20, 2022 Time Seen by Provider: 11:29 Date of Admission (Tele-ICU Physician , consultation) Available chart/ vitals / labs / Images reviewed H&P is from ER notes Patient's information available about PMH, Shx, Fhx allergy reviewed inEMR. ROS as per chart and RN report Now in ICU, hemodynamically stable Video assessment done using teleICU camera, rest of exam as per RN Discussed with RN. Consultants: Hospital course: (07/19) 66y/M in with ams, pt has a uti.elevated ammonia level A/P Elv lactate - probably combination of type A ( resolved ) and type B ( liver failure ) UTI - ceftriaxone End-stage liver disease cirrhosis -status post ablation of hepatocellular carcinoma tumor Jun 2022 at . 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 on rifaximin Anemia - stable Thrombocytopenia - PLT 69 - ? chronic Diabetes -ISS NGUYEN - complaint with CPAP +2 L o2 - to cont H/o DVT in the post-op phase of L TKR in early 2021 - not on AC with low PLT Lines : PICC 07/20 right , (Central Line Necessity Reviewed) Pringle: + 07/19 OG: Nutrition: po Analgesia: Anxiety/ delirium VTE Prophylaxis: on holds with low PLT Stress Ulcer Prophylaxis: Plans in collaboration with bedside consultants and IM MDs. Discussed with RN to reach out if any questions or concerns A total of 31 minutes of critical care time was devoted to this patient today, required to treat and/or prevent further deterioration of critical care condition ( as above ) . Allergies and Home Medications Allergies Coded Allergies: COVID-19 (SARS-CoV-2) vaccine, meri (Unverified Allergy, Severe, Anaphylaxis, 10/14/21) erythromycin base (Unverified Allergy, Severe, Hives, 10/14/21) Penicillins (Verified Allergy, Intermediate, HIVES - patient has rec'd cefuroxime in past, 06/16/22) Sulfa (Sulfonamide Antibiotics) (Verified Allergy, Intermediate, HIVES, 10/14/21) adhesive tape (Verified Allergy, Intermediate, HIVES, 10/14/21) tetanus and diphtheria toxoids (Verified Allergy, Intermediate, HIVES, 10/14/21) Influenza Virus Vaccines (Verified Adverse Reaction, Mild, NAUSEA, 10/14/21) atorvastatin (Verified Adverse Reaction, Mild, NAUSEA, 10/14/21) hydromorphone (Verified Adverse Reaction, Mild, hallucinations, 10/14/21) morphine (Verified Adverse Reaction, Mild, hallcination, 10/14/21) simvastatin (Verified Adverse Reaction, Mild, NAUSEA, 10/14/21) Home Medications Cephalexin 250 Mg Capsule, 250 MG PO DAILY, (Reported) FILLED 07-09-2022 # DAY SUPPLY Cholecalciferol (Vitamin D3) 125 Mcg Capsule, 125 MCG PO DAILY, (Reported) Cyanocobalamin 1,000 Mcg/Ml Inj, 1,000 MCG IM MONTHLY, (Reported) Ezetimibe 10 Mg Tablet, 10 MG PO DAILY, (Reported) Hydrochlorothiazide 25 Mg Tablet, 25 MG PO DAILY, (Reported) Levothyroxine Sodium 100 Mcg Tablet, 100 MCG PO DAILY, (Reported) Melatonin 10 Mg Tablet, 10 MG PO HS PRN for SLEEP, (Reported) Metoprolol Succinate 50 Mg Tab.er.24h, 50 MG PO DAILY, (Reported) Ondansetron 4 Mg Tab.rapdis, 4 MG PO Q8H PRN for NAUSEA/VOMITING-1ST LINE, (Reported) Potassium Chloride 10 Meq Capsule.er, 20 MEQ PO DAILY, (Reported) TAKES 2 (10MEQ) TABS Rifaximin 550 Mg Tablet, 550 MG PO Q12H, (Reported) Sertraline HCl 100 Mg Tablet, 100 PO DAILY, (Reported) TAKES 25MG +100MG TOGETHER TO EQUAL 125MG Sertraline HCl 25 Mg Tablet, 25 MG PO DAILY, (Reported) TAKES 25MG +100MG TOGETHER TO EQUAL 125MG Past Medical/Social/Family Hx Patient Social History Tobacco Use?: No Smoking Status: Never a Smoker Use of E-Cig and/or Vaping dev: No Substance use?: No Alcohol Use?: No Pt stated abuse/neglect: No Immunizations Up To Date Influenza Vaccine Up-to-Date: No; Not Current First/Initial COVID19 Vaccinat: 05/2021 Second COVID19 Vaccination Hermes: 06/2021 Tetanus Booster (TDap): More Than 5 Years Current Status status: No status: No Advance Directives: Yes Advance Directive Location: Home Communicates: Verbally Primary Language: Stateless Preferred Spoken Language: Stateless Is interpretation needed?: No Implanted or Applied Medical D: Pacemaker Family Medical History Family Hx: PAST SURGICAL HISTORY: -LEFT TOTAL KNEE REPLACEMENT 10/2021. DEVELOPED DVT IN LEFT LEG POST OP -RIGHT KNEE REPLACEMENT X 2 -RIGHT KNEE SCOPE -RIGHT KNEE SCOPE -RIGHT ROTATOR CUFF REPAIR -REMOVAL OF BENIGN COLON MASS -SMALL BOWEL RESECTION FOR BOWEL OBSTRUCTION -HYSTERECTOMY -APPENDECTOMY -CHOLECYSTECTOMY -THYROIDECTOMY -BILATERAL HEEL SPURS REMOVED -LOOP RECORDER PLACED 08/2020 FOR SYNCOPAL EPISODES - DUAL CHAMBER PACEMAKER PLACED BY DR. CAT 12/2020 FOR SYNCOPE WITH PAUSES Review of Systems Constitutional: see HPI Focused Exam Lactate Level 07/20/22 05:24: Lactic Acid Level 2.60*H 07/20/22 08:25: Lactic Acid Level 2.57*H 07/20/22 11:15: Height, Weight, BMI Height: 5'2.00" Weight: 306lbs. 0.0oz. 138.560238bt; 60.87 BMI Method:Stated Lactic Acid Level Laboratory Tests Test 07/20/22 08:25 07/20/22 11:15 Lactic Acid Level 2.57 MMOL/L (0.50-2.00) *H Exam Exam Patient acknowledged, consented, and participated in this virtual visit which was conducted using real time audio/video Vital Signs Date Time Temp Pulse Resp B/P (MAP) Pulse Ox O2 Delivery O2 Flow Rate FiO2 07/20/22 10:00 84 20 113/58 (76) 98 Room Air 07/20/22 09:00 89 18 118/55 (76) 99 Room Air 07/20/22 08:00 80 20 123/54 (77) 96 Room Air 07/20/22 08:00 36.8 07/20/22 07:25 84 07/20/22 07:00 81 24 162/75 (104) 98 Room Air 07/20/22 06:37 85 15 145/75 (92) 98 Room Air 07/20/22 05:00 85 19 125/63 (75) 97 Room Air 07/20/22 04:00 97 Room Air 07/20/22 04:00 80 9 139/107 (112) 98 Room Air 07/20/22 03:57 36.9 07/20/22 03:15 82 23 104/52 (71) 98 Room Air 07/20/22 02:15 80 9 105/58 (81) 97 Room Air 07/20/22 01:15 81 21 104/50 (64) 98 Room Air 07/20/22 01:00 80 07/20/22 01:00 80 91/39 (68) 99 Room Air 07/20/22 00:45 77 17 97/46 (67) 97 Room Air 07/20/22 00:30 80 16 120/46 (53) 99 Room Air 07/20/22 00:15 80 23 114/46 (67) 99 Room Air 07/20/22 00:07 76 135/65 07/20/22 00:06 76 135/65 07/20/22 00:00 76 22 112/50 (76) 99 Room Air 07/19/22 23:52 36.9 76 11 135/65 (88) 98 Room Air 07/19/22 23:40 36.9 78 21 135/65 (88) 99 Room Air 07/19/22 23:34 98 Room Air 07/19/22 23:24 85 07/19/22 23:22 36.9 76 11 135/65 (88) 99 Room Air Manual Cuff/Auscultation 07/19/22 22:56 83 18 108/73 98 07/19/22 20:48 37.3 83 20 111/60 (77) I & O 07/20/22 07:00 Intake Total 400 ml Output Total 325 ml Balance 75 ml Height & Weight Height: 5'2.00" Weight: 306lbs. 0.0oz. 138.146102kh; 60.87 BMI Method:Stated General Appearance: No Apparent Distress, WD/WN, Mild Distress, Obese HEENT: PERRL/EOMI, Other (Dry mucous membranes) Neck: Non Tender, Supple Respiratory: Lungs Clear, Normal Breath Sounds Cardiovascular: No Murmur, Tachycardia Capillary Refill: Less Than 3 Seconds Extremity: Normal Range of Motion, Non Tender, No Calf Tenderness, Pedal Edema (1-2+ to mid tibia bilateral) Neurologic/Psychiatric: Alert, Oriented x3 Results Lab Laboratory Tests 07/19/22 21:10 07/20/22 03:40 Assessment/Plan Assessment/Plan 1 FRANKI STANLEY MD Jul 20, 2022 11:30
[2022-07-20] MEDS ORDERED: prednisoLONE 1% OPTH (PRED FORTE) 5 ML BTL OD SCH ×2 (13:00→16:00)
[2022-07-20 13:04] LABS: POTASSIUM 3.3 MMOL/L (3.6-5.0)
[2022-07-20 13:05] LABS: CALCIUM 9.1 MG/DL (8.5-10.1)
[2022-07-20 13:09] LABS: CREATININE SERUM 0.91 MG/DL (0.60-1.30)
--- NOTE | 2022-07-20 13:09 | Consultation-Cardiology ---
HPI-Cardiology Cardiology Consultation: Date of Consultation 07/20/22 Time Seen by a Provider: 12:45 Date of Admission 07-19-22 Attending Physician Lona Vega MD Admitting Physician Admitting Physician: Lona Vega MD Attending Physician: Lona Vega MD Consulting Physician Franki Thompson MD HPI: Chief Complaint: Sepsis Ms. Cummins is a 66 yr old female admitted to ICU 10 from the ED with sepsis. She reports she does not quite recall the events leading up to her admission other than she started feeling unwell yesterday. She reports she has a UTI and was feeling very weak and fatigued. She denies any n/v/d. No c/o fever or chills at home. She reports chronic bilat LE swelling, but reports it has been well controlled. She reports a feeling of palpitations over the last couple days, but denies any syncope or near syncope. She reports she was having palpitations this morning, but feels it has improved this afternoon. Review of Systems-Cardiology Review of Systems Constitutional: As described under HPI Eyes: No vision change Ears/Nose/Throat: No epistaxis, No recent hearing loss Respiratory: As described under HPI Cardiovascular: As described under HPI Gastrointestinal: As described under HPI Genitourinary: no symptoms reported; No hematuria Musculoskeletal: no symptoms reported Skin: No rash on exposed areas, No ulcerations on exposed areas Psychiatric/Neurological: No anxiety, No depression, No seizure, No focal weakness, No syncope Hematologic: No bleeding abnormalities All Other Systems Reviewed Negative Unless Noted: Yes AJD-Rcrfik-Jnylws Hx Patient Social History Smoking Status: Never a Smoker 2nd Hand Smoke Exposure: No Have you traveled recently?: No Alcohol Use?: No Pt feels they are or have been: No Past Medical History PMH As described under Assessment. Family Medical History Family Medical History: Does not report fam h/o early CAD or SCD Allergies and Home Medications Allergies Coded Allergies: COVID-19 (SARS-CoV-2) vaccine, meri (Unverified Allergy, Severe, Anaphylaxis, 10/14/21) erythromycin base (Unverified Allergy, Severe, Hives, 10/14/21) Penicillins (Verified Allergy, Intermediate, HIVES - patient has rec'd cefuroxime in past, 06/16/22) Sulfa (Sulfonamide Antibiotics) (Verified Allergy, Intermediate, HIVES, 10/14/21) adhesive tape (Verified Allergy, Intermediate, HIVES, 10/14/21) tetanus and diphtheria toxoids (Verified Allergy, Intermediate, HIVES, 10/14/21) Influenza Virus Vaccines (Verified Adverse Reaction, Mild, NAUSEA, 10/14/21) atorvastatin (Verified Adverse Reaction, Mild, NAUSEA, 10/14/21) hydromorphone (Verified Adverse Reaction, Mild, hallucinations, 10/14/21) morphine (Verified Adverse Reaction, Mild, hallcination, 10/14/21) simvastatin (Verified Adverse Reaction, Mild, NAUSEA, 10/14/21) Patient Home Medication List Cephalexin (Cephalexin) 250 Mg Capsule, 250 MG PO DAILY, (Reported) Entered as Reported by: JUAN NEUMANN on 07/20/22 111 Last Action: Held Cholecalciferol (Vitamin D3) (Vitamin D3) 125 Mcg Capsule, 125 MCG PO DAILY, (Reported) Entered as Reported by: SHAD HELTON on 10/21/21 0914 Last Action: Held Cyanocobalamin (Cyanocobalamin Injection) 1,000 Mcg/Ml Inj, 1,000 MCG IM MONTHLY, (Reported) Entered as Reported by: JUAN NEUMANN on 06/15/22 09 Last Action: Held Ezetimibe (Ezetimibe) 10 Mg Tablet, 10 MG PO DAILY, (Reported) Entered as Reported by: JUAN NEUMANN on 06/15/22 09 Last Action: Held Furosemide (Furosemide) 40 Mg Tablet, 40 MG PO DAILY, (Reported) Entered as Reported by: JUAN NEUMANN on 07/20/22 1447 Last Action: Held Hydrochlorothiazide (Hydrochlorothiazide) 25 Mg Tablet, 25 MG PO DAILY, (Reported) Entered as Reported by: JUAN NEUMANN on 07/20/22 111 Last Action: Held Ketorolac Tromethamine (Ketorolac Tromethamine) 0.5 % Drops, 5 ML OP QID, (Reported) Entered as Reported by: JUNG ALBA on 07/20/22 1526 Last Action: Reviewed Levothyroxine Sodium (Levothyroxine Sodium) 100 Mcg Tablet, 100 MCG PO DAILY, (Reported) Entered as Reported by: TIMOTHY HERNANDES on 12/02/15 1335 Last Action: Continued Melatonin (Melatonin) 10 Mg Tablet, 10 MG PO HS PRN for SLEEP, (Reported) Entered as Reported by: JUAN NEUMANN on 10/21/211445 Last Action: Held Ofloxacin (Ofloxacin) 0.3 % Drops, 5 ML OT QID, (Reported) Entered as Reported by: JUNG ALBA on 07/20/221525 Last Action: Reviewed Ondansetron (Ondansetron Odt) 4 Mg Tab.rapdis, 4 MG PO Q8H PRN for NAUSEA/VOMITING-1ST LINE, (Reported) Entered as Reported by: JUAN NEUMANN on 06/15/22900 Last Action: Held Potassium Chloride (Potassium Chloride) 10 Meq Capsule.er, 20 MEQ PO DAILY, (Reported) Entered as Reported by: JUAN NEUMANN on 07/20/221112 Last Action: Held Prednisolone Acetate/Pf (Prednisolone Acet 1% Eye Drop) 1 % Drops.susp, 5 ML OP QID, (Reported) Entered as Reported by: JUNG ALBA on 07/20/221528 Last Action: Reviewed Rifaximin (Xifaxan) 550 Mg Tablet, 550 MG PO Q12H, (Reported) Entered as Reported by: JUAN NEUMANN on 06/15/22900 Last Action: Continued Sertraline HCl (Sertraline HCl) 100 Mg Tablet, 100 MG PO DAILY, (Reported) Entered as Reported by: JUAN NEUMANN on 10/21/211445 Last Action: Held Sertraline HCl (Sertraline HCl) 25 Mg Tablet, 25 MG PO DAILY, (Reported) Entered as Reported by: JUAN NEUMANN on 07/20/221112 Last Action: Held Discontinued Medications Cefdinir (Cefdinir) 300 Mg Capsule, 300 MG PO BID Discontinued Reason: No Longer Taking Prescribed by: CULLEN TILLMAN on 06/18/22 1214 Last Action: Discontinued Diphenhydramine HCl (Benadryl Allergy) 25 Mg Tablet, 25-50 MG PO Q6H PRN for ALLERGY SYMPTOMS, (Reported) Discontinued Reason: No Longer Taking Entered as Reported by: JUAN NEUMANN on 10/21/211448 Last Action: Discontinued Hydrochlorothiazide (Hydrochlorothiazide) 25 Mg Tablet, 25 MG PO DAILY Discontinued Reason: Duplicate Order Prescribed by: KEDAR FORD on 06/21/22 8666 Last Action: Discontinued Metoprolol Succinate (Metoprolol Succinate) 50 Mg Tab.er.24h, 50 MG PO DAILY, (Reported) Discontinued Reason: No Longer Taking Entered as Reported by: JUAN NEUMANN on 10/21/21 1446 Last Action: Discontinued Physical Exam-Cardiology Physical Exam Vital Signs/I&O 07/20/22 07/20/22 07/20/22 07/20/22 20:00 20:00 21:00 21:32 Pulse 83 81 90 Resp 13 18 B/P (MAP) 102/51 (75) 114/50 (64) Pulse Ox 99 98 98 O2 Delivery Room Air Room Air Room Air 07/20/22 07/20/22 22:00 22:19 Temp 36.8 36.3 Pulse 78 Resp 20 B/P (MAP) 112/48 (69) Pulse Ox 100 O2 Delivery Room Air 07/21/22 00:00 Intake Total 500 ml Output Total 605 ml Balance -105 ml Capillary Refill : Less Than 3 Seconds Constitutional: AAO x 3, well-developed, well-nourished, other (morbidly obese) HEENT: PERRL, hearing is well preserved, oral hygience is good Neck: No carotid bruit; carotid pulses are 2 + bilaterally Respiratory: No accessory muscle use, No respiratory distress; chest expansion is symmetric, chest is bilaterally symmetric, other (good air entry) Cardiovascular: regular rate-rhythm; No JVD; S1 and S2 Gastrointestinal: No tender; soft; No guarding; audible bowel sounds Extremities: no lower extremity edema bilateral Neurologic/Psychiatric: grossly intact (moves all extremities) Skin: normal color, warm/dry; No rash on exposed areas, No ulcerations on exp osed areas Data Review Labs Laboratory Tests 07/20/22 08:25: Lactic Acid Level 2.57*H 07/20/22 11:15: Lactic Acid Level 2.68*H 07/20/22 11:47: Glucometer 116H 07/20/22 12:25: Sodium Level 140, Potassium Level 3.3L, Chloride Level 106, Carbon Dioxide Level 27, Anion Gap 7, Blood Urea Nitrogen 22H, Creatinine 0.91, Estimat Glomerular Filtration Rate 69, BUN/Creatinine Ratio 24, Glucose Level 123H, Calcium Level 9.1, Magnesium Level 2.1 07/20/22 14:45: Lactic Acid Level 6.98*H 07/20/22 17:00: Glucometer 110 07/20/22 17:40: Lactic Acid Level 7.21*H, Potassium Level 3.7 07/20/22 20:36: Glucometer 113H Microbiology 07/19/22 MRSA Screen - Final, Complete MRSA not isolated 07/19/22 Blood Culture - Preliminary, Resulted No growth 07/19/22 Urine Culture - Preliminary, Resulted Slight Growth Present Radiology NAME: MECHE CUMMINS [facility] REC#: [id number] PT STATUS: REG ER : 1955 PHYSICIAN: HALEIGH BURRIS MD ADMIT DATE: 07/19/22/ER Signed Date of Exam:07/19/22 CHEST 1 VIEW, AP/PA ONLY EXAMINATION: Chest, one view. HISTORY: Weakness. COMPARISON: 06/21/2022. FINDINGS: Lung volumes are low. Stable cardiomegaly with left pectoral pacemaker. There is prominence of the central pulmonary vasculature. No large pleural effusion or pneumothorax. IMPRESSION: 1. Cardiomegaly with central pulmonary vascular congestion. This appearance is similar to the prior exam. Dictated by: Dictated on workstation # [id number] Dict: 07/19/222137 Trans: 07/19/222142 [id number] Interpreted by: MAGUE QIU DO Electronically signed by: MAGUE QIU DO 07/19/222142 ECG Impression ECG Initial ECG Rhythm: Normal Sinus A/P-Cardiology Assessment/Admission Diagnosis Irregular, non-sustained WCT which appears to be a-fib with aberrancy Sepsis with septic shock - management per medical/eICU services Jaundice of undetermined etiology - management per medical/eICU services Marked hypokalemia and metabolic abnormalities likely responsible arrhythmia UTI with sepsis - management per medical/eICU services Thrombocytopenia - undetermined etiology - following with oncology/hematology at [facility] S/P PPM implant on 12-16-20 for reasons noted below - H/o ILR implant on Aug 19, 2020 d/t report of palpitations and syncope - pauses of up to 5 sec on tele in Aug and Sep 2020 (improved after cessation of beta-paris then) - 4 second pause on 11/21/20 (without her being on any rate-lowering agents) - Device functioning normally per interrogation of 06-07-22 (done during hospitalization at [facility]) Palpitations: - Holter of 11/13/18 showed NSR with PACs and PVCs and episodes of vent bigeminy, clinically improved with beta-blockers H/o diastolic CHF - currently clinically compensated - Card cath of February 2019: no significant CAD, LVEF 60%, elevated LVEDP - Echo of 01-07-22 : LVEF 60-65% Obesity - with BMI approx 60 DM II - managed by PCP Hypertension - labile Chronic low back pain GI - H/o colon mass removal (benign) and subsequent surgery for small intestinal obstruction for which she underwent partial small intestine removal, according to her. This was in or around 2014 - Hepatic cirrhosis of undetermined etiology, followed and managed by Dr Mcduffie at [facility] - now being followed by Dr. Durham - s/p recent microwave ablation to a liver mass on 06-07-[address] Michelle Cheung at [facility] H/o DVT in the post-op phase of L TKR in early 2021 - has since been on anticoag that is being managed by Dr Vega NGUYEN - treated with CPAP Fam h/o early CAD - father of SC at age 54 Discussion and Recomendations Complex management Electrolyte abnormalities of undetermined etiology - replace electrolytes which is likely the cause of her arrhythmia - advise they be avoided Non-sustained WCT with appears to be a-fib with aberrancy - not a suitable candidate for Amiodarone b/c of pre-existing hepatopathy - not suitable for BB or calcium channel paris d/t hypotension/shock - not suitable candidate for OAC d/t thrombocytopenia Continue IVF and BP support Further management of UTI with sepsis per medical/eICU services Management of hepatopathy per medical/eICU services We would like to thank Dr. Vega for this consult Further recs will be based on her hospital course AVIVA ETIENNE Jul 20, 2022 13:09
[2022-07-20 13:12] LABS: MAGNESIUM 2.1 MG/DL (1.6-2.4)
--- NOTE | 2022-07-20 13:43 | History & Physical ---
HPI History of Present Illness: Pt seen initially at 0915, then again at 1200 with at bedside. At initial exam, she was somewhat somnolent, but awakened and answered her full name, but repeated name when asked location. She did say she wasn't sure how long she had been sick and denied pain but reported generally feeling unwell. At noon exam, history gathered from her - she was her usual self and on Tuesday even walked about a block and a half which is quite a lot for her. She had cataract surgery on 07/15. On Tuesday she noted some constipation and got some natural laxative from a family member. He was out of the house most of the day and when he came in the evening was surprised that she hadn't done anything a bout dinner, but went ahead and made dinner himself and went to bed. On Tuesday he had to go to work and notes that she was acting somewhat different than normal, for example texted him something about getting out shorts from the laundry when she thought she texted about dinner- and she usually doesn't text him at all. She also stood in the doorway and seemed to have a hard time celeste lizing he needed to get past her to go to a meeting. He had his daughter come to sit with her while he went to his meeting and by the end of that, daughter called and said she needed to be taken to the hospital. The last time Swathi had sepsis, she was confused but would follow instructions, so they were able to get her into the car, but this time, she was resisting and not understanding at all what they wanted her to do, and with 6 people they could not get her into their truck, so they used the daughter's SUV which they were able to get her into. At the time of obtaining this history, Swathi was originally quite confused, only answered first name, kept rubbing her head and saying "I see..." and sighing but not answering otherwise. By the time I finished talking with her , she was alert and oriented x 3. Source: patient, family Exam Limitations: clinical condition Date seen by provider: Jul 20, 2022 Time Seen by Provider: 09:15 Attending Physician Brenton Vega MD PCP Admitting Physician: Brenton Vega MD Attending Physician: Brenton Vega MD Consult Date of Admission Jul 19, 2022 at 22:01 Home Medications Home Medications Reviewed patient Home Medication Reconciliation performed by pharmacy medication reconciliations highway engineering technician and/or nursing. Patients Allergies have been reviewed. Allergies Coded Allergies: COVID-19 (SARS-CoV-2) vaccine, meri (Unverified Allergy, Severe, Anaphylaxis, 10/14/21) erythromycin base (Unverified Allergy, Severe, Hives, 10/14/21) Penicillins (Verified Allergy, Intermediate, HIVES - patient has rec'd cefuroxime in past, 06/16/22) Sulfa (Sulfonamide Antibiotics) (Verified Allergy, Intermediate, HIVES, 10/14/21) adhesive tape (Verified Allergy, Intermediate, HIVES, 10/14/21) tetanus and diphtheria toxoids (Verified Allergy, Intermediate, HIVES, 10/14/21) Influenza Virus Vaccines (Verified Adverse Reaction, Mild, NAUSEA, 10/14/21) atorvastatin (Verified Adverse Reaction, Mild, NAUSEA, 10/14/21) hydromorphone (Verified Adverse Reaction, Mild, hallucinations, 10/14/21) morphine (Verified Adverse Reaction, Mild, hallcination, 10/14/21) simvastatin (Verified Adverse Reaction, Mild, NAUSEA, 10/14/21) [id number]-[id number] Hx Patient Social History Smoking Status: Never a Smoker 2nd Hand Smoke Exposure: No Recent Hopitalizations: No Alcohol Use?: No Have you traveled recently?: No Immunizations Up To Date Influenza Vaccine Up-to-Date: No; Not Current First/Initial COVID19 Vaccinat: 05/2021 Second COVID19 Vaccination Hermes: 06/2021 Past Medical History PMHx: 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 Hepatocellular carcinoma s/p ablation treatment 06/2022 Hypertension Diabetes Sick sinus syndrome s/p pacemaker placement Inflammatory bowel disease History of post-op DVT Anxiety Chronic diarrhea Hypothyroidism Iron deficiency anemia vitamin B12 deficiency Hyperlipidemia Obstructive sleep apnea on CPAP Periodic limb movement sleep disorder Vitamin D deficiency Portal hypertension PAST SURGICAL HISTORY: Right cataract removal 07/2022 Left TKA 10/2021 Right TKA x 2 Right rotato cuff repair Small bowel resection for inflammatory obstruction Hysterectomy Appendectomy Cholecystectomy Thyroidectomy Bilateral heel spur removal Pacemaker placement Family Medical History Significant Family History: No Pertinent Family Hx Review of Systems ([facility]) Constitutional: weakness, other (ROS difficult to obtain due to clinical condition) Cardiovascular: No chest pain Gastrointestinal: No abdominal pain; constipation Reviewed Test Results Reviewed Test Results Lab Laboratory Tests Test 07/19/22 21:10 07/19/22 21:20 07/19/22 23:26 07/20/22 01:40 Range/Units White Blood Count 16.2 H 4.3-11.0 10^3/uL Red Blood Count 3.22 L 3.80-5.11 10^6/uL Hemoglobin 11.4 L 11.5-16.0 g/dL Hematocrit 34 L 35-52 % Mean Corpuscular Volume 106 H 80-99 fL Mean Corpuscular Hemoglobin 35 H 25-34 pg Mean Corpuscular Hemoglobin Concent 33 32-36 g/dL Red Cell Distribution Width 13.3 10.0-14.5 % Platelet Count 84 L 130-400 10^3/uL Mean Platelet Volume 11.4 9.0-12.2 fL Immature Granulocyte % (Auto) 0 % Neutrophils (%) (Auto) 87 H 42-75 % Lymphocytes (%) (Auto) 5 L 12-44 % Monocytes (%) (Auto) 7 0-12 % Eosinophils (%) (Auto) 0 0-10 % Basophils (%) (Auto) 0 0-10 % Neutrophils # (Auto) 14.1 H 1.8-7.8 10^3/uL Lymphocytes # (Auto) 0.8 L 1.0-4.0 10^3/uL Monocytes # (Auto) 1.2 H 0.0-1.0 10^3/uL Eosinophils # (Auto) 0.0 0.0-0.3 10^3/uL Basophils # (Auto) 0.0 0.0-0.1 10^3/uL Immature Granulocyte # (Auto) 0.1 0.0-0.1 10^3/uL Neutrophils % (Manual) 92 % Lymphocytes % (Manual) 6 % Monocytes % (Manual) 2 % Percent Immature Platelet Fraction 3.0 0.0-7.6 % Polychromasia MODERATE Macrocytosis MARKED Helmet Cells MODERATE Crenated Cell MODERATE Elliptocytes MARKED Prothrombin Time 19.8 H 12.2-14.7 SEC INR Comment 1.6 H 0.8-1.4 Activated Partial Thromboplast Time 41 H 24-35 SEC Sodium Level 139 135-145 MMOL/L Potassium Level 2.9 L 3.6-5.0 MMOL/L Chloride Level 102 98-107 MMOL/L Carbon Dioxide Level 21 21-32 MMOL/L Anion Gap 16 H 5-14 MMOL/L Blood Urea Nitrogen 23 H 7-18 MG/DL Creatinine 1.20 0.60-1.30 MG/DL Estimat Glomerular Filtration Rate 49 BUN/Creatinine Ratio 19 Glucose Level 138 H 70-105 MG/DL Lactic Acid Level 7.98 *H 5.18 *H 3.70 *H 0.50-2.00 MMOL/L Calcium Level 9.9 8.5-10.1 MG/DL Corrected Calcium 10.7 H 8.5-10.1 MG/DL Total Bilirubin 8.0 H 0.1-1.0 MG/DL Aspartate Amino Transf (AST/SGOT) 597 H 5-34 U/L Alanine Aminotransferase (ALT/SGPT) 106 H 0-55 U/L Alkaline Phosphatase 88 40-136 U/L Ammonia 85 H 11-32 UMOL/L Total Protein 5.7 L 6.4-8.2 GM/DL Albumin 3.0 L 3.2-4.5 GM/DL Urine Color LIN H Urine Clarity SL CLOUDY Urine pH 6.5 5-9 Urine Specific [place] >=1.030 1.016-1.022 Urine Protein 3+ H NEGATIVE Urine Glucose (UA) TRACE H NEGATIVE Urine Ketones NEGATIVE NEGATIVE Urine Nitrite POSITIVE H NEGATIVE Urine Bilirubin 2+ H NEGATIVE Urine Urobilinogen 1.0 < = 1.0 MG/DL Urine Leukocyte Esterase TRACE H NEGATIVE Urine RBC (Auto) 3+ H NEGATIVE Urine RBC 10-25 H /HPF Urine WBC 10-25 H /HPF Urine Squamous Epithelial Cells 5-10 /HPF Urine Renal Epithelial Cells NONE /HPF Urine Crystals NONE /LPF Urine Bacteria LARGE H /HPF Urine Casts PRESENT /LPF Urine Hyaline Casts 25-50 H /LPF Urine Mucus NEGATIVE /LPF Urine Culture Indicated CULTURE PENDING Test 07/20/22 03:40 07/20/22 05:24 07/20/22 08:25 07/20/22 11:15 Range/Units White Blood Count 16.8 H 4.3-11.0 10^3/uL Red Blood Count 2.99 L 3.80-5.11 10^6/uL Hemoglobin 10.7 L 11.5-16.0 g/dL Hematocrit 31 L 35-52 % Mean Corpuscular Volume 104 H 80-99 fL Mean Corpuscular Hemoglobin 36 H 25-34 pg Mean Corpuscular Hemoglobin Concent 34 32-36 g/dL Red Cell Distribution Width 13.2 10.0-14.5 % Platelet Count 69 L 130-400 10^3/uL Mean Platelet Volume 12.0 9.0-12.2 fL Immature Granulocyte % (Auto) 1 % Neutrophils (%) (Auto) 85 H 42-75 % Lymphocytes (%) (Auto) 7 L 12-44 % Monocytes (%) (Auto) 8 0-12 % Eosinophils (%) (Auto) 0 0-10 % Basophils (%) (Auto) 0 0-10 % Neutrophils # (Auto) 14.3 H 1.8-7.8 10^3/uL Lymphocytes # (Auto) 1.1 1.0-4.0 10^3/uL Monocytes # (Auto) 1.3 H 0.0-1.0 10^3/uL Eosinophils # (Auto) 0.0 0.0-0.3 10^3/uL Basophils # (Auto) 0.1 0.0-0.1 10^3/uL Immature Granulocyte # (Auto) 0.1 0.0-0.1 10^3/uL Percent Immature Platelet Fraction 3.0 0.0-7.6 % Sodium Level 140 135-145 MMOL/L Potassium Level 2.9 L 3.6-5.0 MMOL/L Chloride Level 104 98-107 MMOL/L Carbon Dioxide Level 23 21-32 MMOL/L Anion Gap 13 5-14 MMOL/L Blood Urea Nitrogen 22 H 7-18 MG/DL Creatinine 1.07 0.60-1.30 MG/DL Estimat Glomerular Filtration Rate 57 BUN/Creatinine Ratio 21 Glucose Level 135 H 70-105 MG/DL Lactic Acid Level 2.89 *H 2.60 *H 2.57 *H 2.68 *H 0.50-2.00 MMOL/L Calcium Level 9.3 8.5-10.1 MG/DL Corrected Calcium 10.5 H 8.5-10.1 MG/DL Phosphorus Level 2.1 L 2.3-4.7 MG/DL Magnesium Level 1.7 1.6-2.4 MG/DL Total Bilirubin 7.2 H 0.1-1.0 MG/DL Aspartate Amino Transf (AST/SGOT) 729 H 5-34 U/L Alanine Aminotransferase (ALT/SGPT) 125 H 0-55 U/L Alkaline Phosphatase 83 40-136 U/L Ammonia 82 H 11-32 UMOL/L Total Protein 4.7 L 6.4-8.2 GM/DL Albumin 2.5 L 3.2-4.5 GM/DL Test 07/20/22 11:47 07/20/22 12:25 07/20/22 14:45 Range/Units Glucometer 116 H 70-110 MG/DL Sodium Level 140 135-145 MMOL/L Potassium Level 3.3 L 3.6-5.0 MMOL/L Chloride Level 106 98-107 MMOL/L Carbon Dioxide Level 27 21-32 MMOL/L Anion Gap 7 5-14 MMOL/L Blood Urea Nitrogen 22 H 7-18 MG/DL Creatinine 0.91 0.60-1.30 MG/DL Estimat Glomerular Filtration Rate 69 BUN/Creatinine Ratio 24 Glucose Level 123 H 70-105 MG/DL Calcium Level 9.1 8.5-10.1 MG/DL Magnesium Level 2.1 1.6-2.4 MG/DL Lactic Acid Level 6.98 *H 0.50-2.00 MMOL/L Radiology CXR 07/19/22: IMPRESSION: 1. Cardiomegaly with central pulmonary vascular congestion. This appearance is similar to the prior exam. Physical Exam-([facility]) Physical Exam Vital Signs VS - Last 72 Hours, by Label 07/19/22 07/19/22 07/19/22 07/19/22 20:48 22:56 23:22 23:24 Temp 37.3 36.9 Pulse 83 83 76 85 Resp 20 18 11 B/P (MAP) 111/60 (77) 108/73 135/65 (88) Manual Cuff/Auscultation Pulse Ox 98 99 O2 Delivery Room Air 07/19/22 07/19/22 07/19/22 07/20/22 23:34 23:40 23:52 00:00 Temp 36.9 36.9 Pulse 78 76 76 Resp 21 11 22 B/P (MAP) 135/65 (88) 135/65 (88) 112/50 (76) Pulse Ox 98 99 98 99 O2 Delivery Room Air Room Air Room Air Room Air 07/20/22 07/20/22 07/20/22 07/20/22 00:06 00:07 00:15 00:30 Pulse 76 76 80 80 Resp 23 16 B/P (MAP) 135/65 135/65 114/46 (67) 120/46 (53) Pulse Ox 99 99 O2 Delivery Room Air Room Air 07/20/22 07/20/22 07/20/22 07/20/22 00:45 01:00 01:00 01:15 Pulse 77 80 80 81 Resp 17 21 B/P (MAP) 97/46 (67) 91/39 (68) 104/50 (64) Pulse Ox 97 99 98 O2 Delivery Room Air Room Air Room Air 07/20/22 07/20/22 07/20/22 07/20/22 02:15 03:15 03:57 04:00 Temp 36.9 Pulse 80 82 80 Resp 9 23 9 B/P (MAP) 105/58 (81) 104/52 (71) 139/107 (112) Pulse Ox 97 98 98 O2 Delivery Room Air Room Air Room Air 07/20/22 07/20/22 07/20/22 07/20/22 04:00 05:00 06:37 07:00 Pulse 85 85 81 Resp 19 15 24 B/P (MAP) 125/63 (75) 145/75 (92) 162/75 (104) Pulse Ox 97 97 98 98 O2 Delivery Room Air Room Air Room Air Room Air 07/20/22 07/20/22 07/20/22 07/20/22 07:25 08:00 08:00 09:00 Temp 36.8 Pulse 84 80 89 Resp 20 18 B/P (MAP) 123/54 (77) 118/55 (76) Pulse Ox 96 99 O2 Delivery Room Air Room Air 07/20/22 07/20/22 07/20/22 07/20/22 10:00 11:00 12:00 12:00 Temp 37.0 Pulse 84 79 75 Resp 20 11 23 B/P (MAP) 113/58 (76) 90/68 (75) 109/75 (86) Pulse Ox 98 98 98 O2 Delivery Room Air Room Air Room Air 07/20/22 07/20/22 12:48 13:00 Pulse 73 76 Resp 30 B/P (MAP) 125/74 (91) Pulse Ox 99 O2 Delivery Room Air Capillary Refill : Less Than 3 Seconds General Appearance: mild distress, obese Respiratory: lungs clear, accessory muscle use Cardiovascular: regular rate, rhythm, no murmur Gastrointestinal: normal bowel sounds, non tender Extremities: pedal edema Neurologic/Psychiatric: alert, other (see HPI- oriented to self only originally but x 3 later, moving all extremities equally, EOMI) Skin: jaundice Assessment/Plan Assessment/Plan Admission Status: Inpatient Order (span 2 midnights) Reason for Inpatient Admission: Septic shock (1) Septic shock Status: Acute Assessment & Plan: Lactic acid above 4 on admit, improved overnight with IV bolus based on ideal body weight. Suspect secondary to UTI. Has not required pressors, lactate trending down. (2) Urinary tract infection Status: Acute Assessment & Plan: History of E coli sensitive to ceftriaxone, started on admit, cultures pending. Qualifiers: Qualified Codes: N30.00 - Acute cystitis without hematuria (3) Hepatic encephalopathy Status: Acute Assessment & Plan: Waxing and waning mental status since admit, started on lactulose, did have constipation prior to admit. Suspect secondary to infection. Resume home rifaximin. (4) Chronic liver disease in patient with history of hepatocellular carcinoma Status: Chronic Assessment & Plan: Had embolization of suspected HCC in last couple of months, has not had follow up imaging yet. (5) End stage liver disease Status: Chronic Assessment & Plan: Follows with Hepatology at . Liver enzymes and bilirubin significantly elevated compared to last admission and baseline. Concern for SBP, on ceftriaxone, uncertain if she has ascites at this time, has not historically. (6) Wide-complex tachycardia Status: Acute Assessment & Plan: Brief periods noted on telemetry, consult Cardiology. (7) Cirrhosis Status: Chronic Assessment & Plan: Follows with Hepatolgoy, possibly due to MACHUCA but also has history of inflammatory bowel disease. Has chronic anemia and thrombocytopenia. Qualifiers: Qualified Codes: K74.69 - Other cirrhosis of liver (8) Generalized edema Status: Chronic Assessment & Plan: Will be cautious with fluid, history of diastolic CHF and difficult to control edema. (9) Non-insulin dependent type 2 diabetes mellitus Status: Chronic Assessment & Plan: Diet controlled for some time. Monitor glucose, sliding scale insulin if needed. (10) Obesity Status: Chronic Qualifiers: (11) Chronic diastolic heart failure Status: Chronic (12) NGUYEN (obstructive sleep apnea) Status: Chronic Assessment & Plan: Uses CPAP, home machine was brought in, use nightly. (13) Pacemaker Status: Chronic (14) HTN (hypertension) Status: Chronic Assessment & Plan: Borderline low BP currently, monitor. (15) Hypothyroidism Status: Chronic Assessment & Plan: Resume home levothyroxine. Qualifiers: Qualified Codes: E03.9 - Hypothyroidism, unspecified (16) Hypokalemia Status: Acute Assessment & Plan: Replace and monitor. (17) S/P cataract surgery Status: Acute Assessment & Plan: Resume eye drops, had surgery 07/15. Qualifiers: Qualified Codes: Z98.41 - Cataract extraction status, right eye (18) Crohn's disease Status: Chronic (19) DVT prophylaxis Status: Acute Assessment & Plan: No pharmacologic due to low platelets. (20) Goals of care, counseling/discussion Status: Acute Assessment & Plan: Spoke with and patient at bedside, discussed some in clinic prior to this admission and her general wishes are for aggressive care, but not prolonged aggressive care. noted he is concerned about her downward trajectory and we discussed that over the last year or so she has had progressive decline. They do know that they may be facing difficult decisions soon, and he plans to discuss with all their children this weekend. They want to do all they can to make things as good as they can but also want to be realistic about what care will be beneficial. BRENTON VEGA MD Jul 20, 2022 13:43
[2022-07-20] MEDS: KCL 20 MEQ TAB (K-DUR) PO SCH ×2 (14:36→16:32)
[2022-07-20] MEDS ORDERED: FURO40TA4 PO (14:47)
[2022-07-20] MEDS ORDERED: OFLO5DRO33 OT (15:26)
[2022-07-20] MEDS ORDERED: KETO5DRO14 OP (15:26)
[2022-07-20] MEDS ORDERED: PRED5DRO24 OP (15:29)
[2022-07-20] MEDS ORDERED: PATIENT MAY USE OWN MED,SINGLE MED PO SCH (15:30)
[2022-07-20] MEDS ORDERED: LACTATED RINGERS 1,000 ML IV SCH (15:45)
[2022-07-20] MEDS ORDERED: inSUlin ASPART (NovoLOG) 1 UNIT/0.01 ML (CHARGE PER UNIT) SC SCH (16:00)
[2022-07-20] MEDS ORDERED: KETOROLAC OPTH 0.5% OP SCH (16:00)
[2022-07-20] MEDS ORDERED: OFLOXACIN OPTH OP SCH (16:00)
--- NOTE | 2022-07-20 16:03 | Consultation-Cardiology ---
HPI-Cardiology Cardiology Consultation: Date of Consultation 07/20/22 Time Seen by a Provider: 14:00 Date of Admission Attending Physician Lona Vega MD Admitting Physician Admitting Physician: Lona Vega MD Attending Physician: Lona Vega MD Consulting Physician CHARLINE CAT MD, MA, FACP, FACC, FSCAI, CCDS Physician requesting consult: Dr Vega HPI: Chief Complaint: Reason for Card consult: Wide-complex tachycardia Ms. Cummins is a 66 yr old female admitted to ICU 10 from the ED with sepsis. She reports she does not quite recall the events leading up to her admission other than she started feeling unwell yesterday. She reports she has a UTI and was feeling very weak and fatigued. She denies any n/v/d. No c/o fever or chills at home. She reports chronic bilat LE swelling, but reports it has been well controlled. She reports a feeling of palpitations over the last couple days, but denies any syncope or near syncope. She reports she was having palpitations this morning, but feels it has improved this afternoon. Review of Systems-Cardiology Review of Systems Constitutional: As described under HPI Eyes: No vision change Ears/Nose/Throat: No epistaxis, No recent hearing loss Respiratory: As described under HPI Cardiovascular: As described under HPI Gastrointestinal: As described under HPI Genitourinary: no symptoms reported; No hematuria Musculoskeletal: no symptoms reported Skin: No rash on exposed areas, No ulcerations on exposed areas Psychiatric/Neurological: No anxiety, No depression, No seizure, No focal weakness, No syncope Hematologic: No bleeding abnormalities All Other Systems Reviewed Negative Unless Noted: Yes MTD-Hcjucm-Bqavbz Hx Patient Social History Smoking Status: Never a Smoker 2nd Hand Smoke Exposure: No Have you traveled recently?: No Alcohol Use?: No Pt feels they are or have been: No Past Medical History PMH As described under Assessment. Family Medical History Family Medical History: Does not report fam h/o early CAD or SCD Allergies and Home Medications Allergies Coded Allergies: COVID-19 (SARS-CoV-2) vaccine, meri (Unverified Allergy, Severe, Anaphylaxis, 10/14/21) erythromycin base (Unverified Allergy, Severe, Hives, 10/14/21) Penicillins (Verified Allergy, Intermediate, HIVES - patient has rec'd cefuroxime in past, 9/7/22) Sulfa (Sulfonamide Antibiotics) (Verified Allergy, Intermediate, HIVES, 10/14/21) adhesive tape (Verified Allergy, Intermediate, HIVES, 10/14/21) tetanus and diphtheria toxoids (Verified Allergy, Intermediate, HIVES, 10/14/21) Influenza Virus Vaccines (Verified Adverse Reaction, Mild, NAUSEA, 10/14/21) atorvastatin (Verified Adverse Reaction, Mild, NAUSEA, 10/14/21) hydromorphone (Verified Adverse Reaction, Mild, hallucinations, 10/14/21) morphine (Verified Adverse Reaction, Mild, hallcination, 10/14/21) simvastatin (Verified Adverse Reaction, Mild, NAUSEA, 10/14/21) Patient Home Medication List Home Medication List Reviewed: Yes Cephalexin (Cephalexin) 250 Mg Capsule, 250 MG PO DAILY, (Reported) Entered as Reported by: JUAN NEUMANN on 07/20/22 111 Last Action: Reviewed Cholecalciferol (Vitamin D3) (Vitamin D3) 125 Mcg Capsule, 125 MCG PO DAILY, (Reported) Entered as Reported by: SHAD HELTON on 10/21/21 0914 Last Action: Reviewed Cyanocobalamin (Cyanocobalamin Injection) 1,000 Mcg/Ml Inj, 1,000 MCG IM MONTHLY, (Reported) Entered as Reported by: JUAN NEUMANN on 06/15/22 09 Last Action: Reviewed Ezetimibe (Ezetimibe) 10 Mg Tablet, 10 MG PO DAILY, (Reported) Entered as Reported by: JUAN NEUMANN on 06/15/22 09 Last Action: Reviewed Furosemide (Furosemide) 40 Mg Tablet, 40 MG PO DAILY, (Reported) Entered as Reported by: JUAN NEUMANN on 07/20/22 1447 Last Action: Reviewed Hydrochlorothiazide (Hydrochlorothiazide) 25 Mg Tablet, 25 MG PO DAILY, (Reported) Entered as Reported by: JUAN NEUMANN on 07/20/22 111 Last Action: Reviewed Ketorolac Tromethamine (Ketorolac Tromethamine) 0.5 % Drops, 5 ML OP QID, (Reported) Entered as Reported by: JUNG ALBA on 07/20/22 1526 Last Action: Last Taken Edited Levothyroxine Sodium (Levothyroxine Sodium) 100 Mcg Tablet, 100 MCG PO DAILY, (Reported) Entered as Reported by: TIMOTHY HERNANDES on 12/02/15 1335 Last Action: Reviewed Melatonin (Melatonin) 10 Mg Tablet, 10 MG PO HS PRN for SLEEP, (Reported) Entered as Reported by: JUAN NEUMANN on 10/21/21 144 Last Action: Reviewed Ofloxacin (Ofloxacin) 0.3 % Drops, 5 ML OT QID, (Reported) Entered as Reported by: JUNG ALBA on 07/20/22 152 Last Action: Last Taken Edited Ondansetron (Ondansetron Odt) 4 Mg Tab.rapdis, 4 MG PO Q8H PRN for NAUSEA/VOMITING-1ST LINE, (Reported) Entered as Reported by: JUAN NEUMANN on 06/15/22900 Last Action: Reviewed Potassium Chloride (Potassium Chloride) 10 Meq Capsule.er, 20 MEQ PO DAILY, (Reported) Entered as Reported by: JUAN NEUMANN on 07/20/22 111 Last Action: Reviewed Prednisolone Acetate/Pf (Prednisolone Acet 1% Eye Drop) 1 % Drops.susp, 5 ML OP QID, (Reported) Entered as Reported by: JUNG ALBA on 07/20/22 152 Last Action: New Order Rifaximin (Xifaxan) 550 Mg Tablet, 550 MG PO Q12H, (Reported) Entered as Reported by: JUAN NEUMANN on 06/15/22900 Last Action: Reviewed Sertraline HCl (Sertraline HCl) 100 Mg Tablet, 100 MG PO DAILY, (Reported) Entered as Reported by: JUAN NEUMANN on 10/21/211445 Last Action: Reviewed Sertraline HCl (Sertraline HCl) 25 Mg Tablet, 25 MG PO DAILY, (Reported) Entered as Reported by: JUAN NEUMANN on 07/20/22 111 Last Action: Reviewed Discontinued Medications Cefdinir (Cefdinir) 300 Mg Capsule, 300 MG PO BID Discontinued Reason: No Longer Taking Prescribed by: CULLEN TILLMAN on 06/18/22 1214 Last Action: Discontinued Diphenhydramine HCl (Benadryl Allergy) 25 Mg Tablet, 25-50 MG PO Q6H PRN for ALLERGY SYMPTOMS, (Reported) Discontinued Reason: No Longer Taking Entered as Reported by: JUAN NEUMANN on 10/21/211448 Last Action: Discontinued Hydrochlorothiazide (Hydrochlorothiazide) 25 Mg Tablet, 25 MG PO DAILY Discontinued Reason: Duplicate Order Prescribed by: KEDAR FORD on 06/21/221455 Last Action: Discontinued Metoprolol Succinate (Metoprolol Succinate) 50 Mg Tab.er.24h, 50 MG PO DAILY, (Reported) Discontinued Reason: No Longer Taking Entered as Reported by: JUAN NEUMANN on 10/21/211445 Last Action: Discontinued Physical Exam-Cardiology Physical Exam Vital Signs/I&O 07/20/22 07/20/22 07/20/22 07/20/22 04:00 04:00 05:00 06:37 Pulse 80 85 85 Resp 9 19 15 B/P (MAP) 139/107 (112) 125/63 (75) 145/75 (92) Pulse Ox 98 97 97 98 O2 Delivery Room Air Room Air Room Air Room Air 07/20/22 07/20/22 07/20/22 07/20/22 07:00 07:25 08:00 08:00 Temp 36.8 Pulse 81 84 80 Resp 24 20 B/P (MAP) 162/75 (104) 123/54 (77) Pulse Ox 98 96 O2 Delivery Room Air Room Air 07/20/22 07/20/22 07/20/22 07/20/22 09:00 10:00 11:00 12:00 Pulse 89 84 79 75 Resp 18 20 11 23 B/P (MAP) 118/55 (76) 113/58 (76) 90/68 (75) 109/75 (86) Pulse Ox 99 98 98 98 O2 Delivery Room Air Room Air Room Air Room Air 07/20/22 07/20/22 07/20/22 12:00 12:48 13:00 Temp 37.0 Pulse 73 76 Resp 30 B/P (MAP) 125/74 (91) Pulse Ox 99 O2 Delivery Room Air Capillary Refill : Less Than 3 Seconds Constitutional: AAO x 3, well-developed, well-nourished, other (morbidly obese) HEENT: PERRL, hearing is well preserved, oral hygience is good Neck: No carotid bruit; carotid pulses are 2 + bilaterally Respiratory: No accessory muscle use, No respiratory distress; chest expansion is symmetric, chest is bilaterally symmetric, other (good air entry) Cardiovascular: regular rate-rhythm; No JVD; S1 and S2 Gastrointestinal: No tender; soft; No guarding; audible bowel sounds Extremities: no lower extremity edema bilateral Neurologic/Psychiatric: grossly intact (moves all extremities) Skin: normal color, warm/dry; No rash on exposed areas, No ulcerations on exposed areas Data Review Labs Laboratory Tests 07/19/22 21:10: White Blood Count 16.2H, Red Blood Count 3.22L, Hemoglobin 11.4L, Hematocrit 34L , Mean Corpuscular Volume 106H, Mean Corpuscular Hemoglobin 35H, Mean Corpuscular Hemoglobin Concent 33, Red Cell Distribution Width 13.3, Platelet Count 84L, Mean Platelet Volume 11.4, Immature Granulocyte % (Auto) 0, Neutrophils (%) (Auto) 87H, Lymphocytes (%) (Auto) 5L, Monocytes (%) (Auto) 7, Eosinophils (%) (Auto) 0, Basophils (%) (Auto) 0, Neutrophils # (Auto) 14.1H, Lymphocytes # (Auto) 0.8L, Monocytes # (Auto) 1.2H, Eosinophils # (Auto) 0.0, Basophils # (Auto) 0.0, Immature Granulocyte # (Auto) 0.1, Neutrophils % (Manual) 92, Lymphocytes % (Manual) 6, Monocytes % (Manual) 2, Percent Immature Platelet Fraction 3.0, Polychromasia MODERATE, Macrocytosis MARKED, Helmet Cells MODERATE, Crenated Cell MODERATE, Elliptocytes MARKED, Prothrombin Time 19.8H, INR Comment 1.6H, Activated Partial Thromboplast Time 41H, Sodium Level 139, Potassium Level 2.9L, Chloride Level 102, Carbon Dioxide Level 21, Anion Gap 16H , Blood Urea Nitrogen 23H, Creatinine 1.20, Estimat Glomerular Filtration Rate 49, BUN/Creatinine Ratio 19, Glucose Level 138H, Lactic Acid Level 7.98*H, Calcium Level 9.9, Corrected Calcium 10.7H, Total Bilirubin 8.0H, Aspartate Amino Transf (AST/SGOT) 597H, Alanine Aminotransferase (ALT/SGPT) 106H, Alkaline Phosphatase 88, Ammonia 85H, Total Protein 5.7L, Albumin 3.0L 07/19/22 21:20: Urine Color AMBERH, Urine Clarity SL CLOUDY, Urine pH 6.5, Urine Specific Tamiment >=1.030, Urine Protein 3+H, Urine Glucose (UA) TRACEH, Urine Ketones NEGATIVE, Urine Nitrite POSITIVEH, Urine Bilirubin 2+H, Urine Urobilinogen 1.0, Urine Leukocyte Esterase TRACEH, Urine RBC (Auto) 3+H, Urine RBC 10-25H, Urine WBC 10-25H, Urine Squamous Epithelial Cells 5-10, Urine Renal Epithelial Cells NONE, Urine Crystals NONE, Urine Bacteria LARGEH, Urine Casts PRESENT, Urine Hyaline Casts 25-50H, Urine Mucus NEGATIVE, Urine Culture Indicated CULTURE PENDING 07/19/22 23:26: Lactic Acid Level 5.18*H 07/20/22 01:40: Lactic Acid Level 3.70*H 07/20/22 03:40: White Blood Count 16.8H, Red Blood Count 2.99L, Hemoglobin 10.7L, Hematocrit 31L , Mean Corpuscular Volume 104H, Mean Corpuscular Hemoglobin 36H, Mean Corpuscular Hemoglobin Concent 34, Red Cell Distribution Width 13.2, Platelet Count 69L, Mean Platelet Volume 12.0, Immature Granulocyte % (Auto) 1, Neutrophils (%) (Auto) 85H, Lymphocytes (%) (Auto) 7L, Monocytes (%) (Auto) 8, Eosinophils (%) (Auto) 0, Basophils (%) (Auto) 0, Neutrophils # (Auto) 14.3H, Lymphocytes # (Auto) 1.1, Monocytes # (Auto) 1.3H, Eosinophils # (Auto) 0.0, Basophils # (Auto) 0.1, Immature Granulocyte # (Auto) 0.1, Percent Immature Platelet Fraction 3.0, Sodium Level 140, Potassium Level 2.9L, Chloride Level 104, Carbon Dioxide Level 23, Anion Gap 13, Blood Urea Nitrogen 22H, Creatinine 1.07, Estimat Glomerular Filtration Rate 57, BUN/Creatinine Ratio 21, Glucose Level 135H, Lactic Acid Level 2.89*H, Calcium Level 9.3, Corrected Calcium 10.5H , Phosphorus Level 2.1L, Magnesium Level 1.7, Total Bilirubin 7.2H, Aspartate Amino Transf (AST/SGOT) 729H, Alanine Aminotransferase (ALT/SGPT) 125H, Alkaline Phosphatase 83, Ammonia 82H, Total Protein 4.7L, Albumin 2.5L 07/20/22 05:24: Lactic Acid Level 2.60*H 07/20/22 08:25: Lactic Acid Level 2.57*H 07/20/22 11:15: Lactic Acid Level 2.68*H 07/20/22 11:47: Glucometer 116H 07/20/22 12:25: Sodium Level 140, Potassium Level 3.3L, Chloride Level 106, Carbon Dioxide Level 27, Anion Gap 7, Blood Urea Nitrogen 22H, Creatinine 0.91, Estimat Glomerular Filtration Rate 69, BUN/Creatinine Ratio 24, Glucose Level 123H, Calcium Level 9.1, Magnesium Level 2.1 07/20/22 14:45: Lactic Acid Level 6.98*H A/P-Cardiology Assessment/Admission Diagnosis Irregular, non-sustained WCT: a-fib with aberrancy vs NSVT - likely precipitated by metabolic abnormalities Sepsis with septic shock - management per Medical and eICU services Jaundice of undetermined etiology / hepatic failure and hepatic encephalopathy(markedly elevated bilirubin, elevated transaminases, elevated ammonia) - management per Medical and eICU services Marked hypokalemia UTI with sepsis and/or ascending cholangiitis - management per Medical and eICU services Thrombocytopenia - undetermined etiology - following with Oncology/Hematology at [facility] S/P PPM implant on 12-16-20 for reasons noted below - H/o ILR implant on Aug 19, 2020 d/t report of palpitations and syncope - pauses of up to 5 sec on tele in Aug and Sep 2020 (improved after cessation of beta-paris then) - 4 second pause on 11/21/20 (without her being on any rate-lowering agents) - Device functioning normally per interrogation of 06-07-22 (done during hospitalization at [facility]) Palpitations: - Holter of 11/13/18 showed NSR with PACs and PVCs and episodes of vent bigeminy, clinically improved with beta-blockers H/o diastolic CHF - currently clinically compensated - Card cath of February 2019: no significant CAD, LVEF 60%, elevated LVEDP - Echo of 01-07-22 : LVEF 60-65% Obesity - with BMI approx 60 DM II - managed by PCP Hypertension - labile Chronic low back pain GI - H/o colon mass removal (benign) and subsequent surgery for small intestinal obstruction for which she underwent partial small intestine removal, according to her. This was in or around 2014 - Hepatic cirrhosis of undetermined etiology, followed and managed by Dr Mcduffie at [facility] - now being followed by Dr. Durham - s/p recent microwave ablation to a liver mass on 06-07-[address] Michelle Cheung at [facility] H/o DVT in the post-op phase of L TKR in early 2021 - has since been on anticoag that is being managed by Dr Vega NGUYEN - treated with CPAP Fam h/o early CAD - father of GA at age 52 Discussion and Recomendations * Complex management * Replenish electrolytes / correct metabolic abnormalities * Non-sustained WCT with appears to be a-fib with aberrancy (but cannot exclude NSVT) - not a suitable candidate for Amiodarone b/c of pre-existing hepatopathy - not suitable for BB or calcium channel paris d/t hypotension/shock - not suitable candidate for OAC d/t thrombocytopenia * Continue IVF and BP support * Management of encephalopathy, hepatopathy, UTI / asc cholangiitis with septic shock is with the Medical and eICU services * Consider transfer to a tertiary care facility * I spoke with Dr Vega on the phone to discuss the case CHARLINE CAT MD FACP FAC CCDS Jul 20, 2022 16:02
[2022-07-20] MEDS ORDERED: RIFAXIMIN 550 MG TABLET (XIFAXAN) PO SCH (18:00)
--- NOTE | 2022-07-20 18:42 | Tele-ICU Progress Note ---
Progress Note increased lactic acid level again earlier today - given 1 l LR - lactate keep rising no clear etiology - vital and O2 stable , not suspected to be drug related will cont to monitor , will check thiamine level Focused Exam Lactate Level 07/20/22 11:15: Lactic Acid Level 2.68*H 07/20/22 14:45: Lactic Acid Level 6.98*H 07/20/22 17:40: Lactic Acid Level 7.21*H Height, Weight, BMI Height: 5'2.00" Weight: 306lbs. 0.0oz. [id number]; 60.87 BMI Method:Stated Lactic Acid Level Laboratory Tests Test 07/20/22 14:45 07/20/22 17:40 Lactic Acid Level 6.98 MMOL/L (0.50-2.00) *H 7.21 MMOL/L (0.50-2.00) *H FRANKI STANLEY MD Jul 20, 2022 18:42
[2022-07-20] MEDS ORDERED: cefTRIAXone 1 GM/50 ML (PRE-MIX) IV SCH (22:00)
[2022-07-21] MEDS ORDERED: LEVOTHYROXINE 100 MCG (LEVOTHROID) TAB PO SCH (06:30)
--- NOTE | 2022-07-21 14:09 | Discharge Summary ---
Discharge Summary Hospital Course Problems/Diagnosis: (1) Septic shock Status: Acute Assessment & Plan: Lactic acid above 4 on admit, improved overnight with IV bolus based on ideal body weight. Suspect secondary to UTI. Has not required pressors, lactate initially trended down as low as 2.5, but then went back up to above 6, given this along with comorbidities, transferred to for higher level of care and Hepatology availability. (2) Urinary tract infection Status: Acute Assessment & Plan: History of E coli sensitive to ceftriaxone, started on admit, cultures pending. Qualifiers: Qualified Codes: N30.00 - Acute cystitis without hematuria (3) Hepatic encephalopathy Status: Acute Assessment & Plan: Waxing and waning mental status since admit, started on lactulose, did have constipation prior to admit. Suspect secondary to infection. Resumed home rifaximin. (4) Chronic liver disease in patient with history of hepatocellular carcinoma Status: Chronic Assessment & Plan: Had embolization of suspected HCC in last couple of months, has not had follow up imaging yet. (5) End stage liver disease Status: Chronic Assessment & Plan: Follows with Hepatology at . Liver enzymes and bilirubin significantly elevated compared to last admission and baseline. Concern for SBP, on ceftriaxone, uncertain if she has ascites at this time, has not historically. (6) Wide-complex tachycardia Status: Acute Assessment & Plan: Brief periods noted on telemetry, Cardiology consulted and e xpressed concern that they could not use typical meds due to liver issues and were concerned about beta or calcium channel paris due to borderline BP, this in combination with septic shock and liver disease prompted transfer to . (7) Cirrhosis Status: Chronic Assessment & Plan: Follows with Hepatolgoy, possibly due to MACHUCA but also has history of inflammatory bowel disease. Has chronic anemia and thrombocytopenia. Qualifiers: Qualified Codes: K74.69 - Other cirrhosis of liver (8) Generalized edema Status: Chronic Assessment & Plan: Will be cautious with fluid, history of diastolic CHF and difficult to control edema. (9) Non-insulin dependent type 2 diabetes mellitus Status: Chronic Assessment & Plan: Diet controlled for some time. Monitor glucose, sliding scale insulin if needed. (10) Obesity Status: Chronic Qualifiers: (11) Chronic diastolic heart failure Status: Chronic (12) NGUYEN (obstructive sleep apnea) Status: Chronic Assessment & Plan: Uses CPAP, home machine was brought in, use nightly. (13) Pacemaker Status: Chronic (14) HTN (hypertension) Status: Chronic Assessment & Plan: Borderline low BP currently, monitor. (15) Hypothyroidism Status: Chronic Assessment & Plan: Resume home levothyroxine. Qualifiers: Qualified Codes: E03.9 - Hypothyroidism, unspecified (16) Hypokalemia Status: Acute Assessment & Plan: Replace and monitor. (17) S/P cataract surgery Status: Acute Assessment & Plan: Resume eye drops, had surgery 07/15. Qualifiers: Qualified Codes: Z98.41 - Cataract extraction status, right eye (18) Crohn's disease Status: Chronic (19) Goals of care, counseling/discussion Status: Acute Assessment & Plan: Spoke with and patient at bedside, discussed some in clinic prior to this admission and her general wishes are for aggressive care, but not prolonged aggressive care. noted he is concerned about her downward trajectory and we discussed that over the last year or so she has had progressive decline. They do know that they may be facing difficult decisions soon, and he plans to discuss with all their children this weekend. They want to do all they can to make things as good as they can but also want to be realistic about what care will be beneficial. Hospital Course Date of Admission: Jul 19, 2022 at 22:01 Admission Diagnosis : See problem list Family Physician/Provider: Brenton Doran MD Date of Discharge: 07/21/22 Discharge Diagnosis: See problem list Hospital Course: Pt admitted and treatment for septic shock secondary to UTI initiated, see problem list for details. Due to worsening lactic acidosis, ventricular tachycardia and acute on chronic liver failure, she was transferred to [facility] where her Hepatology and GI specialists are. Labs and Pending Lab Test: Laboratory Tests 07/20/22 14:45: Lactic Acid Level 6.98*H 07/20/22 17:00: Glucometer 110 07/20/22 17:40: Lactic Acid Level 7.21*H, Potassium Level 3.7 07/20/22 20:36: Glucometer 113H Microbiology 07/19/22 MRSA Screen - Final, Complete MRSA not isolated 07/19/22 Blood Culture - Preliminary, Resulted No growth 07/19/22 Urine Culture - Final, Complete Mixed Bacterial [place] Home Meds Active Reported Prednisolone Acet 1% Eye Drop (Prednisolone Acetate/Pf) 1 % Drops.susp 5 Ml OP QID Ofloxacin 0.3 % Drops 5 Ml OT QID Ketorolac Tromethamine 0.5 % Drops 5 Ml OP QID Furosemide 40 Mg Tablet 40 Mg PO DAILY Hydrochlorothiazide 25 Mg Tablet 25 Mg PO DAILY Sertraline HCl 25 Mg Tablet 25 Mg PO DAILY TAKES 25MG +100MG TOGETHER TO EQUAL 125MG Cephalexin 250 Mg Capsule 250 Mg PO DAILY FILLED 07-09-2022 #30/30 DAY SUPPLY Potassium Chloride 10 Meq Capsule.er 20 Meq PO DAILY TAKES 2 (10MEQ) TABS Cyanocobalamin Injection (Cyanocobalamin) 1,000 Mcg/Ml Inj 1,000 Mcg IM MONTHLY Ezetimibe 10 Mg Tablet 10 Mg PO DAILY Xifaxan (Rifaximin) 550 Mg Tablet 550 Mg PO Q12H LAST FILLED 05-12-2022 #60/30 DAY SUPPLY Ondansetron Odt (Ondansetron) 4 Mg Tab.rapdis 4 Mg PO Q8H PRN Sertraline HCl 100 Mg Tablet 100 Mg PO DAILY TAKES 25MG +100MG TOGETHER TO EQUAL 125MG Melatonin 10 Mg Tablet 10 Mg PO HS PRN Vitamin D3 (Cholecalciferol (Vitamin D3)) 125 Mcg Capsule 125 Mcg PO DAILY Levothyroxine Sodium 100 Mcg Tablet 100 Mcg PO DAILY Assessment/Pt DC Instructions Transferred to [facility]. Discharge Physical Examination Allergies: Coded Allergies: COVID-19 (SARS-CoV-2) vaccine, meri (Unverified Allergy, Severe, Anaphylaxis, 10/14/21) erythromycin base (Unverified Allergy, Severe, Hives, 10/14/21) Penicillins (Verified Allergy, Intermediate, HIVES - patient has rec'd cefuroxime in past, 06/16/22) Sulfa (Sulfonamide Antibiotics) (Verified Allergy, Intermediate, HIVES, 10/14/21) adhesive tape (Verified Allergy, Intermediate, HIVES, 10/14/21) tetanus and diphtheria toxoids (Verified Allergy, Intermediate, HIVES, 10/14/21) Influenza Virus Vaccines (Verified Adverse Reaction, Mild, NAUSEA, 10/14/21) atorvastatin (Verified Adverse Reaction, Mild, NAUSEA, 10/14/21) hydromorphone (Verified Adverse Reaction, Mild, hallucinations, 10/14/21) morphine (Verified Adverse Reaction, Mild, hallcination, 10/14/21) simvastatin (Verified Adverse Reaction, Mild, NAUSEA, 10/14/21) BRENTON DORAN MD Jul 21, 2022 14:08
== END 2022-07-20 22:15 | disposition short-term general hospital (02) | DRG 871 ==
LOC: EDUNIT# 20:34 → ER 20:36 → ICU 22:01
PROVIDERS: ADMIT Family Medicine; ATTEND Family Medicine
DX: A41.9 Sepsis, unspecified organism (principal); K72.00 Acute and subacute hepatic failure without coma; R65.21 Severe sepsis with septic shock; N39.0 Urinary tract infection, site not specified; I50.32 Chronic diastolic (congestive) heart failure; Z68.44 Body mass index [BMI] 60.0-69.9, adult; I47.20 Ventricular tachycardia, unspecified; K50.90 Crohn's disease, unspecified, without complications; K76.82 Hepatic encephalopathy; K72.10 Chronic hepatic failure without coma; I11.0 Hypertensive heart disease with heart failure; E66.01 Morbid (severe) obesity due to excess calories; E11.9 Type 2 diabetes mellitus without complications; E03.9 Hypothyroidism, unspecified; E78.00 Pure hypercholesterolemia, unspecified; G47.33 Obstructive sleep apnea (adult) (pediatric); E87.6 Hypokalemia; K74.60 Unspecified cirrhosis of liver; M81.0 Age-related osteoporosis without current pathological fracture; M19.91 Primary osteoarthritis, unspecified site; F41.9 Anxiety disorder, unspecified; F32.A Depression, unspecified; D64.9 Anemia, unspecified; D69.6 Thrombocytopenia, unspecified; Z85.05 Personal history of malignant neoplasm of liver; Z79.84 Long term (current) use of oral hypoglycemic drugs; Z95.0 Presence of cardiac pacemaker; Z96.651 Presence of right artificial knee joint; Z86.718 Personal history of other venous thrombosis and embolism; Z88.1 Allergy status to other antibiotic agents; Z88.5 Allergy status to narcotic agent; Z88.0 Allergy status to penicillin; Z88.2 Allergy status to sulfonamides; Z88.7 Allergy status to serum and vaccine; Z88.8 Allergy status to other drugs, medicaments and biological substances; Z91.048 Other nonmedicinal substance allergy status
CPT/HCPCS: 36415; 36569; 71045; 76937; 80048; 80053; 81000; 82140; 82947; 83605; 83735; 84100; 84132; 85007; 85025; 85027; 85610; 85730; 87040; 87081; 87088; 93005; 93306